=== PATIENT | male | born 1950 | race Caucasian/White ===

== ENCOUNTER 2017-05-13 14:14 | Emergency (ER) | payer MEDICARE ==
[~2017-05-13] VITALS: Ht 177.8 cm; Wt 92.1 kg
[~2017-05-13 14:14] MED LIST: ALLOPURINOL100 M1 ORAL; AMLODIPINE BESY10 MG ORAL; CALCIUM ACETAT667 MG PO; DIABETA5 MG ORAL; DILTIAZEM 24HR120 M1 ORAL; ESCITALOPRAM OX20 MG ORAL; FUROSEMIDE80 MG ORAL; GABAPENTIN100 MG ORAL; GABAPENTIN300 MG/61 ORAL; LANTUS SOL100 UNIT/1 SUBQ; NEPHROVITE1 TAB ORAL; OMEPRAZOLE20 M2 ORAL; PROPRANOLOL HCL80 M1 ORAL; RAPAMUNE1 MG/1 ML PO; RENVELA0.8 GM ORAL; TORSEMIDE100 MG PO; XANAX0.5 MG ORAL
[2017-05-13 14:22] VITALS: BP 143/85
--- NOTE | 2017-05-13 14:42 | Emergency Room Report ---
History of Present Illness General Chief Complaint: Skin Rash/Abscess Source: Patient Present Illness HPI Patient present with complaints of rash and itching He states that is fairly diffuse Patient was given a pill of the hospital When the rash initially started having states that is not helping very much When asked further patient reports that he was in the hospital for an AV fistula last Friday He was in the hospital for several days The rash started soon after that Denies any chest pain or shortness of breath denies any headache or visual changes denies any vomiting or diarrhea Patient reports that he was at dialysis on Friday and he could not move his arm for the whole dialysis, and the itching was unbearable Patient has started a medication for smoking cessation chantix approximately 3 weeks ago and this is the only new medication Patient however is not aware of the medications he was given at the hospital Allergies: Coded Allergies: CEPHALEXIN (Unverified Allergy, Unknown, 02/24/14) SULFAMETHOXAZOLE (Unverified Allergy, Unknown, 02/24/14) TRIMETHOPRIM (Unverified Allergy, Unknown, 02/24/14) Patient History Past Medical History: see triage record Pertinent Family History: none Reviewed Nursing Documentation: PMH: Agreed, PSxH: Agreed Nursing Documentation-PMH Hx Cardiac Problems: No Hx Diabetes: Yes Hx Cancer: No Hx Gastrointestinal Problems: Yes - liver transplant Hx Dialysis: Yes - KIDNEY FAILURE Hx Neurological Problems: No Review of Systems All Other Systems: negative except mentioned in HPI Physical Exam Vital Signs Date Time Temp Pulse Resp B/P (MAP) Pulse Ox O2 Delivery O2 Flow Rate FiO2 05/13/17 14:19 97.5 83 20 143/85 99 Room Air Sp02 EP Interpretation: reviewed, normal General Appearance: well appearing, no apparent distress Head: normocephalic, atraumatic Eyes: bilateral eye PERRL, bilateral eye EOMI ENT: hearing grossly normal, normal pharynx, TMs + canals normal, uvula midline Neck: full range of motion, supple, no meningismus, no bony tend Respiratory: lungs clear, normal breath sounds, no rhonchi, no respiratory distress, no retraction, no accessory muscle use Cardiovascular #1: normal peripheral pulses, regular rate, rhythm, no edema, no gallop, no JVD, no murmur Gastrointestinal: normal bowel sounds, non tender, soft, no mass, no organomegaly, non-distended, no guarding, no hernia, no pulsatile mass, no rebound Genitourinary: no CVA tenderness Musculoskeletal: normal inspection - Review AV fistula left antecubital fossa, mild associated erythema Neurologic: oriented x3, responsive, director telehealth III-XII nml as tested, motor strength/ tone normal, sensory intact Psychiatric: mood/affect normal Skin: other - Diffuse, pruritic rash, involving the upper chest back and arm area, no signs of any target cell appearance, the area does not appear fluctuant , best described as small some circular some mildly irregular raised erythematous lesions, does not appear maculopapular, or to be petechiae Lymphatic: normal inspection, no adenopathy Medical Decision Making Diagnostic Impression: Primary Impression: Rash and other nonspecific skin eruption ER Course Multiple differentials are considered Patient is a fairly complex past medical history Has had recent hospital stay as well Patient does not appear septic or toxic The patient's main complaint is the itching from the rash Patient has been seen by hospitalist along with patient's kinesiologist since disposition from the hospital At this time requires close outpatient followup Clinical consideration for such things as scabies also made, medication reaction Last Vital Signs Date Time Temp Pulse Resp B/P (MAP) Pulse Ox O2 Delivery O2 Flow Rate FiO2 05/13/17 14:22 20 143/85 99 Room Air 05/13/17 14:19 97.5 83 Status: improved Condition: Improved Scripts Permethrin* (ELIMITE*) 60 Gm Cream..g. 1 APPLIC TOPIC ONCE, #60 GM 0 Refills Apply cream from head to toe; leave on for 8-14 hours before washing off with water; may reapply in 1 week if live mites appear. Prov: BROOKE NAYAK D.O. 05/13/17 Diphenhydramine Hcl* (BENADRYL*) 25 Mg Capsule 25 MG ORAL Q6H Y for Itching, #20 CAP Prov: BROOKE NAYAK D.O. 05/13/17 Ranitidine Hcl* (ZANTAC*) 150 Mg Tablet 150 MG ORAL TWICE A DAY, #30 TAB Prov: BROOKE NAYAK D.O. 05/13/17 Prednisone* (PREDNISONE*) 20 Mg Tablet 20 MG ORAL BID, #8 TAB Prov: BROOKE NAYAK D.O. 05/13/17 Additional Instructions: As discussed he had multiple medical conditions. The steroids are being prescribed can increase your blood glucose, your require closer evaluation of this. The recent hospital stay needs to be further evaluated, to entertained different medication that could have been given to. At this time he did not show any signs of fever or infectious pathology and further blood tests had not been evaluated, the rash has also pruritic (itchy) which does not appear to be related to any blood count conditions. He require close urgent followup with your primary physician, reevaluation in the next one to 2 days and return to the emergency room with any change in condition, BROOKE NAYAK D.O. May 13, 2017 14:42
[2017-05-13] MEDS ORDERED: PREDNISONE20 MG ORAL (15:05)
[2017-05-13] MEDS ORDERED: RANITIDINE HCL150 MG ORAL (15:05)
[2017-05-13] MEDS ORDERED: PERMETHRIN60 GM TOPIC (15:05)
[2017-05-13] MEDS ORDERED: BENADRYL25 MG ORAL (15:05)
[2017-05-13 15:35] VITALS: BP 142/82
== END 2017-05-13 15:15 | disposition home or self-care (01) ==
LOC: EMR 14:50
DX: R21 Rash and other nonspecific skin eruption (principal); E11.9 Type 2 diabetes mellitus without complications; N19 Unspecified kidney failure; Z99.2 Dependence on renal dialysis; Z88.1 Allergy status to other antibiotic agents; Z88.2 Allergy status to sulfonamides
CPT/HCPCS: 99284

== ENCOUNTER 2018-10-31 16:34 | Inpatient (IN) | payer MEDICARE, MEDICAID ==
[~2018-10-31] VITALS: Ht 162.6 cm; Wt 91.7 kg
[~2018-10-31 16:34] MED LIST changes: +BENADRYL25 MG ORAL; +PERMETHRIN60 GM TOPIC; +PREDNISONE20 MG ORAL; +RANITIDINE HCL150 MG ORAL
[2018-10-31 17:00] VITALS: BP 80/40
[2018-10-31] MEDS ORDERED: Ondansetron ODT 8mg tab ORAL ONE (17:00)
[2018-10-31] MEDS ORDERED: HYDROmorphone 1mg/ml Carpuject IM ONE (17:00)
--- NOTE | 2018-10-31 17:08 | Emergency Room Report ---
History of Present Illness General Chief Complaint: Skin Rash/Abscess Source: Patient Present Illness HPI Patient presents with increased pain in his his right heel. He has a home health nurse that has been taking care of the wound along with his doctors. He doesn't remember taking x-rays in that area to look of the bone is infected. He does have peripheral neuropathy. He's been taking Percocet 5/325 and they have not been controlling the pain recently. He's had fevers and chills. He denies any calf pain at this time. He rates the pain 10/10, aching pressure not radiating and worse with any touching of the area. There is no drainage. The patient had dialysis yesterday. The patient recently has a new access in the right upper arm. He's complaining about pain and numbness in that area. His other fistula is on the left side. Patient denies any chest pain recently. He denies orthopnea or dyspnea. He does not produce urine at this time. He denies diarrhea and occasionally has constipation. History of diabetes and hypertension. Usually gets care from [facility]. He was last admitted in 2016 with these discharge diagnoses: 1. Polymicrobial bacteremia possibly from line sepsis. 2. Sepsis secondary to line infection. 3. Pericardial effusion, pending pericardiocentesis. 4. Acute metabolic encephalopathy secondary to sepsis, resolved. 5. End-stage renal disease, on hemodialysis with right chest tunneled catheter. 6. Hyponatremia. 7. Thrombocytopenia. 8. Hyperkalemia. 9. Diabetes mellitus. 10.Noncompliance as patient signed AMA. Allergies: Coded Allergies: CEPHALEXIN (Unverified Allergy, Unknown, 02/24/14) SULFAMETHOXAZOLE (Unverified Allergy, Unknown, 02/24/14) TRIMETHOPRIM (Unverified Allergy, Unknown, 02/24/14) Patient History Past Medical History: see triage record Past Surgical History: CABG, pacemaker, other - valve surgery, fistulae bilat Social History: Reports: smoking Social History Narrative With research spec and home health nurse Reviewed Nursing Documentation: PMH: Agreed; PSxH: Agreed Nursing Documentation-PM Past Medical History: No History, Except For Hx Cardiac Problems: No - [place] in Apr 2018 Hx Diabetes: Yes Hx Cancer: No Hx Gastrointestinal Problems: Yes - liver transplant Hx Dialysis: Yes - KIDNEY FAILURE M-W-F Hx Neurological Problems: No Review of Systems All Other Systems: negative except mentioned in HPI Physical Exam Vital Signs Date Time Temp Pulse Resp B/P (MAP) Pulse Ox O2 Delivery O2 Flow Rate FiO2 10/31/18 16:37 84 20 80/40 91 Room Air Oxygen saturation 99% on 3 L nasal cannula. Sp02 EP Interpretation: reviewed, normal General Appearance: well appearing, no apparent distress, GCS 15 Head: normocephalic Eyes: bilateral eye normal inspection, bilateral eye PERRL ENT: moist mucus membranes Neck: supple Respiratory: decreased breath sounds, rales Cardiovascular #1: regular rate, rhythm Cardiovascular #2: 2+ radial (R) Gastrointestinal: normal inspection, normal bowel sounds, non tender, no mass, non-distended Musculoskeletal: back normal, normal range of motion, no calf tenderness, tender - Right heel to percussion Neurologic: alert, oriented x3, grossly normal Psychiatric: mood/affect normal Skin: warm/dry, other - Heel decubitus stage III right no surrounding erythema or fluctuance Medical Decision Making Diagnostic Impression: Primary Impression: Foot ulcer Qualified Codes: L97.511 - Non-pressure chronic ulcer of other part of right foot limited to breakdown of skin Additional Impressions: NSTEMI (non-ST elevated myocardial infarction) ESRD (end stage renal disease) on dialysis Pleural effusions ER Course Patient presents with increased pain in his right ankle with an also there with risk factors of dialysis and diabetes. Differential includes cellulitis, osteomyelitis, diabetic ulcer amongst others. The patient will be evaluated EKG , chest x-ray, x-ray of the foot and labs. The patient retreated with analgesics. As there are fistula a in both arms we will be looking for IV site above where the fistula they are. Patient is placed on a monitoring specialist. EKG without injury - atrial paced. Chest x-ray bilateral effusions and congestive failure with pacemaker. Labs with chronic renal failure. Potassium elevated. Lab called with + troponin. Aspirin and nitrates given. Admit tele Dr. Carter. Hypotension was resolved prior to nitrates. Patient refused Kayexalate. Improved pain but repeated Dilaudid. Last Vital Signs Date Time Temp Pulse Resp B/P (MAP) Pulse Ox O2 Delivery O2 Flow Rate FiO2 11/01/18 00:16 Nasal Cannula 3.0 10/31/18 22:01 99.0 86 20 110/41 96 EKG Diagnostic Results Rate: normal Rhythm: other - AV paced ST Segments: no acute changes Rhythm Strip Diag. Results EP Interpretation: yes Rhythm: no PVC's, no ectopy, other - paced Chest X-Ray Diagnostic Results Chest X-Ray Diagnostic Results : Chest X-Ray Ordered: Yes # of Views/Limited/Complete: 1 View Indication: Other EP Interpretation: Yes Interpretation: no pneumothorax, other - bilat effusions, pacer, inc cor, CABG Impression: Other Electronically Signed by: Electronically signed by Dhruv Urrutia MD Other X-Ray Diagnostic Results Other X-Ray Diagnostic Results : X-Ray ordered: L foot # of Views/Limited Vs Complete: 3 View Indication: Pain Interpretation: no dislocation, no soft tissue swelling, no fractures, other - no gas or periostial reaction Impression: Other Electronically Signed by: Electronically signed by Dhruv Urrutia MD Last Vital Signs Date Time Temp Pulse Resp B/P (MAP) Pulse Ox O2 Delivery O2 Flow Rate FiO2 11/01/18 00:16 Nasal Cannula 3.0 10/31/18 22:01 99.0 86 20 110/41 96 Status: improved Disposition: ADMITTED INPATIENT Condition: Serious Dhruv Urrutia MD Oct 31, 2018 17:08
[2018-10-31] MEDS ORDERED: HYDROmorphone 1mg/ml Carpuject IVP ONE (17:30)
[2018-10-31 17:37] LABS: BASOPHILS % (AUTO) 1.6 % (0.0-2.0); EOSINOPHILS % (AUTO) 0.1 % (0.0-3.0); HEMATOCRIT 44.7 % (42.0-52.0); HEMOGLOBIN 13.3 G/DL (14.2-18.0); LYMPHOCYTES % (AUTO) 26.1 % (20.0-45.0); MEAN CORPUSCULAR VOLUME 86 FL (80-99); MONOCYTES % (AUTO) 8.9 % (1.0-10.0); NEUTROPHILS % (AUTO) 63.4 % (45.0-75.0); PLATELET COUNT 152 K/UL (150-450); RED BLOOD COUNT 5.19 M/UL (4.70-6.10); RED CELL DISTRIBUTION WIDTH 18.8 % (11.6-14.8)
[2018-10-31 17:42] LABS: INR 1.1 (0.9-1.1)
[2018-10-31 17:43] LABS: ANION GAP 8 mmol/L (5-15); BLOOD UREA NITROGEN 30 mg/dL (7-18); CALCIUM 9.5 MG/DL (8.5-10.1); CARBON DIOXIDE 31 MMOL/L (21-32); CHLORIDE 95 MMOL/L (98-107); CREATININE 5.5 MG/DL (0.55-1.30); POTASSIUM 5.6 MMOL/L (3.5-5.1); SODIUM 134 MMOL/L (136-145)
[2018-10-31 17:55] LABS: ALANINE AMINOTRANSFERASE 13 U/L (12-78); ALBUMIN/GLOBULIN RATIO 0.7 (1.0-2.7); ALKALINE PHOSPHATASE 78 U/L (46-116); ASPARTATE AMINO TRANSFERASE 16 U/L (15-37); BILIRUBIN,TOTAL 0.4 MG/DL (0.2-1.0); CREATINE KINASE 37 U/L (26-308)
[2018-10-31] MEDS ORDERED: Sodium Polystyrene Sulfonate 15gm Powder ORAL ONE (18:15)
[2018-10-31] MEDS ORDERED: Nitroglycerin 2% oint pkt TOPIC ONE (18:15)
--- NOTE | 2018-10-31 18:15 | Diagnostic Imaging Report ---
EXAM: XR Right Foot Complete, 3 or More Views CLINICAL HISTORY: OSTEOTOMY TECHNIQUE: Frontal, lateral and oblique views of the right foot. COMPARISON: No relevant comparisons FINDINGS: Bones/joints: Unremarkable. No acute fracture. No dislocation. Soft tissues: Soft tissues show dense arterial calcifications in the posterior tibial and dorsalis pedis arteries. Other findings: There is no evidence of a prior surgery to suggest an osteotomy. Mild claw toe deformity to the second toe is noted. IMPRESSION: No acute findings.
--- NOTE | 2018-10-31 18:30 | Diagnostic Imaging Report ---
EXAM: XR Chest, 1 View CLINICAL HISTORY: OSTEOMY - seizure today TECHNIQUE: Frontal view of the chest. COMPARISON: 03/08/2016 chest x-ray FINDINGS: Lungs: Bilateral perihilar airspace opacities have developed. Pleural space: There is haziness of bilateral lung bases compatible with moderate pleural effusions. No pneumothorax. Heart: Similar cardiomegaly. Mediastinum: Unremarkable. Bones/joints: Interval sternotomy and left-sided mediastinal surgical clips. Tubes, lines and devices: The right jugular approach dialysis catheter has since been removed. A right MRI compatible dual chamber pacemaker has since been placed. Upper abdomen: No free air under the diaphragms. IMPRESSION: Findings suggestive of CHF flare. If a pericardial effusion is suspected, echocardiography could be considered..
[2018-10-31 19:00] VITALS: BP 112/61
[2018-10-31] MEDS ORDERED: Hydromorphone 0.5mg/0.5ml inj IVP ONE (19:15)
[2018-10-31 21:00] VITALS: BP 101/50
[2018-10-31] MEDS ORDERED: TACROLIMUS1 MG PO (21:31)
[2018-10-31] MEDS ORDERED: ASPIRIN81 M3 PO (21:31)
[2018-10-31] MEDS ORDERED: LANTUS5 UNITS SUBQ (21:31)
[2018-10-31] MEDS ORDERED: CALCIUM ACETAT667 M1 PO (21:31)
[2018-10-31] MEDS ORDERED: PERCOCET 5-3251 EACH ORAL (21:31)
[2018-10-31] MEDS ORDERED: PRO-AMATINE2.5 MG ORAL (21:31)
[2018-10-31] MEDS ORDERED: STARLIX120 MG ORAL (21:31)
[2018-10-31] MEDS ORDERED: RENVELA800 MG ORAL (21:31)
[2018-10-31 22:00] VITALS: BP 100/64
[2018-10-31] MEDS ORDERED: FOSRENOL1000 MG PO (22:00)
[2018-11-01] VITALS: BP 108/54
[2018-11-01] MEDS: Vancomycin 1.25gm Premix q24h IVPB SCH (01:17)
[2018-11-01] MEDS: NovoLOG Insulin Flexpen SUBQ SCH ×4 (06:05→20:21)
[2018-11-01] MEDS ORDERED: Torsemide 10mg tab ORAL SCH (09:00)
[2018-11-01] MEDS: Carvedilol 6.25mg Tab ORAL SCH ×2 (09:00→20:17)
[2018-11-01] MEDS ORDERED: CARVEDILOL6.25 MG ORAL (10:03)
[2018-11-01] MEDS ORDERED: TACROLIMUS1 MG PO ×2 (10:03)
[2018-11-01] MEDS: HYDROcodone/Acetamin 5/325 tab ORAL PRN ×3 (10:10→23:44)
[2018-11-01] MEDS ORDERED: CRESTOR10 M2 ORAL (11:27)
[2018-11-01] MEDS ORDERED: TELMISARTAN20 MG PO (11:27)
[2018-11-01] MEDS ORDERED: Sodium Polystyrene Sulfonate 15gm Powder ORAL ONE (12:00)
[2018-11-01] MEDS: Nephrovite tab (Rena-Vite) ORAL SCH (12:05)
[2018-11-01] MEDS: Allopurinol 100mg Tab ORAL SCH (12:05)
[2018-11-01] MEDS: Calcium Acetate 667mg Tab ORAL SCH ×2 (12:40→17:12)
--- NOTE | 2018-11-01 13:12 | Consultation ---
Consult Note Consult Note I was asked to evaluate for dialysis management Patient presents with increased pain in his his right heel. He has a home health nurse that has been taking care of the wound along with his doctors. He doesn't remember taking x-rays in that area to look of the bone is infected. He does have peripheral neuropathy. He's been taking Percocet 5/325 and they have not been controlling the pain recently. He's had fevers and chills. He denies any calf pain at this time. He rates the pain 10/10, aching pressure not radiating and worse with any touching of the area. There is no drainage. The patient had dialysis 10/30 The patient recently has a new access in the right upper arm. He's complaining about pain and numbness in that area. His other fistula is on the left side. Patient denies any chest pain recently. He denies orthopnea or dyspnea. He does not produce urine at this time. He denies diarrhea and occasionally has constipation. History of diabetes and hypertension. Usually gets care from [facility]. He was last admitted in 2016 with these discharge diagnoses: 1. Polymicrobial bacteremia possibly from line sepsis. 2. Sepsis secondary to line infection. 3. Pericardial effusion, pending pericardiocentesis. 4. Acute metabolic encephalopathy secondary to sepsis, resolved. 5. End-stage renal disease, on hemodialysis with right chest tunneled catheter. 6. Hyponatremia. 7. Thrombocytopenia. 8. Hyperkalemia. 9. Diabetes mellitus. 10.Noncompliance as patient signed AMA. Coded Allergies: CEPHALEXIN (Unverified Allergy, Unknown, 02/24/14) SULFAMETHOXAZOLE (Unverified Allergy, Unknown, 02/24/14) TRIMETHOPRIM (Unverified Allergy, Unknown, 02/24/14) Patient History Past Medical History: see triage record Past Surgical History: CABG, pacemaker, other - valve surgery, fistulae bilat Social History: Reports: smoking Social History Narrative With hat presser and home health nurse Reviewed Nursing Documentation: PMH: Agreed; PSxH: Agreed Nursing Documentation-PM Past Medical History: No History, Except For Hx Cardiac Problems: No - [place] in Apr 2018 Hx Diabetes: Yes Hx Cancer: No Hx Gastrointestinal Problems: Yes - liver transplant Hx Dialysis: Yes - KIDNEY FAILURE M-W-F Hx Neurological Problems: No interviewed examined data reviewed o/e SOB at rest mid chest scar pacer on O2 left arm fistula right arm new fistula not matures right heel ulcer, necrotic surface tender Assessment/Plan ESRD with high K and SOB Foot ulcer, likely infected High Troponin likely NSTMI Pacer , Pleural effusion s/p CABGS s/p Liver transplant Plan; HD today , KELSIE per cardio and ID refused Kayexelate Called Dr Gil Figueredo , his PMD and Post Anesthesia Room Nurse for CS transfer Nakul Stevens MD Nov 01, 2018 13:12
[2018-11-01 16:22] VITALS: BP 100/71
[2018-11-01] MEDS: Docusate 100mg cap ORAL SCH (17:12)
--- NOTE | 2018-11-01 18:15 | Consultation ---
DATE OF CONSULTATION: 11/01/2018 CHIEF COMPLAINT: History of liver transplant and constipation. HISTORY OF PRESENT ILLNESS: A very pleasant male who apparently had a liver transplant about 12 years ago at [facility] according to him because of his hepatitis C. He also had a CABG in April, three-vessel CABG and also valve repair, presents to the hospital mainly complaining of the heel ulceration and heel pain and he stated his pain is not under control. GI consultation is requested for evaluation of his treatment for his transplant and followup on his transplant. Also, the patient complained of constipation. PAST MEDICAL HISTORY: 1. History of liver transplant due to hepatitis C. 2. Coronary artery disease, status post CABG in April. 3. Diabetes. 4. End-stage renal disease, on hemodialysis. 5. Hypertension. ALLERGIES: Cephalexin, sulfa, . PAST SURGICAL HISTORY: CABG, liver transplant, dialysis catheter placement. FAMILY HISTORY: Noncontributory. REVIEW OF SYSTEMS: A 10-point review of systems was performed and pertinent positives in the HPI. PHYSICAL EXAMINATION: VITAL SIGNS: Temperature is 98.9 degrees, pulse is 81, respirations 20, and blood pressure is 108/54. HEENT: Normocephalic and atraumatic. Sclerae anicteric. NECK: Supple. No obvious lymphadenopathy. CARDIOVASCULAR: There is a scar in the midline from recent surgery. HEART: Regular rate and rhythm. Plus S1 and S2. There is soft murmur in the left sternal border. LUNGS: Decreased breath sounds bilaterally based on supine exam. ABDOMEN: Soft. There is a scar from prior liver transplant. Bowel sounds are present. No rebound. No guarding. No peritoneal sign. EXTREMITIES: There is evidence of heal ulceration that is covered by Band-Aid. The patient complained of pain in that area. LABORATORY AND DIAGNOSTIC DATA: White count is 7, hemoglobin 13, hematocrit 44, and platelet count is 152,000. Chem-7, sodium 134, potassium 5.6, BUN is 30, creatinine 5.5, liver function grossly normal. ASSESSMENT AND PLAN: A 68-year-old male with heel ulcerations and infection. Follow up with wound care and Infectious Diseases. In terms of his transplant, he is on Prograf currently. He has been followed at [facility] on monthly basis according to him. His liver enzymes are completely normal. So, we are going to follow. We also going to order hepatitis C to make sure he does not have recurrent hepatitis C after transplant. The patient also is complaining of some mild constipation. We will start him on Colace and MiraLax. He refused his lactulose. So, we will see if the Colace and MiraLax will help him. If not, we will add other laxatives. I want to thank Dr. Carter for this kind referral. Jorge Escalera M.D. DR: Shanthi JOB#: [id number] CC: Jamari Carter M.D.; Fax#: [phone]
[2018-11-01] MEDS: Miralax 17gm pkt ORAL SCH (20:19)
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
[2018-11-01] MEDS: Morphine Sulfate 2mg/ml Inj(IV/IM USE ONLY) IM PRN (23:03)
[2018-11-02] MEDS: HYDROcodone/Acetamin 5/325 tab ORAL PRN ×2 (03:24→20:13)
[2018-11-02 04:00] VITALS: BP 176/129
[2018-11-02] MEDS: Morphine Sulfate 2mg/ml Inj(IV/IM USE ONLY) IM PRN ×3 (04:15→18:05)
[2018-11-02] MEDS: NovoLOG Insulin Flexpen SUBQ SCH ×4 (06:17→21:09)
[2018-11-02 08:00] VITALS: BP 135/104
[2018-11-02 08:35] VITALS: BP 120/60
[2018-11-02] MEDS: Nephrovite tab (Rena-Vite) ORAL SCH (08:59)
[2018-11-02] MEDS: Allopurinol 100mg Tab ORAL SCH (08:59)
[2018-11-02] MEDS: Calcium Acetate 667mg Tab ORAL SCH ×2 (09:00→17:56)
[2018-11-02] MEDS: Docusate 100mg cap ORAL SCH ×3 (09:00→17:56)
[2018-11-02] MEDS ORDERED: Torsemide 10mg tab ORAL SCH (09:00)
[2018-11-02] MEDS: Carvedilol 6.25mg Tab ORAL SCH ×2 (09:01→21:00)
--- NOTE | 2018-11-02 11:02 | GI Progress Note ---
Assessment/Plan Problems: (1) Foot ulcer ICD Codes: L97.509 - Non-pressure chronic ulcer of other part of unspecified foot with unspecified severity SNOMED: 53156766 Qualifiers: Qualified Codes: L97.511 - Non-pressure chronic ulcer of other part of right foot limited to breakdown of skin (2) DM (diabetes mellitus) ICD Codes: E11.9 - Type 2 diabetes mellitus without complications SNOMED: 69629922 (3) Transplant ICD Codes: Z94.9 - Transplanted organ and tissue status, unspecified SNOMED: 702806133 Status: stable Status Narrative Discussed with Dr. Escalera Assessment/Plan History of liver transplant, currently on Prograf constipation Follow-up cardiology recommendations for elevated troponin levels advance diet prn transfusions ppi zofran prn Bowel regimen Trend LFTs Follow-up hepatitis panel The patient was seen and examined at bedside and all new and available data was reviewed in the patients chart. I agree with the above findings, impression and plan. (Patient seen earlier today. Signature stamp does not reflect patient encounter time.). - Jorge Escalera MD Subjective Gastrointestinal/Abdominal: Reports: no symptoms Subjective Had bowel movement yesterday Objective Last 24 Hour Vital Signs Date Time Temp Pulse Resp B/P (MAP) Pulse Ox O2 Delivery O2 Flow Rate FiO2 11/02/18 09:01 88 135/104 11/02/18 04:00 87 11/02/18 04:00 176/129 (145) 11/02/18 00:00 90 11/02/18 00:00 97.3 89 20 97 11/01/18 21:00 Room Air 2.0 11/01/18 20:00 97.1 93 18 93 11/01/18 18:31 97.0 11/01/18 16:22 97.0 88 20 100/71 (81) 98 11/01/18 16:00 81 11/01/18 12:00 78 11/01/18 11:12 Room Air 2.0 Intake and Output 11/01/18 11/02/18 19:00 07:00 Intake Total 720 ml Output Total 1200 ml 150 ml Balance -480 ml -150 ml Intake Oral 720 ml Output Urine Total 150 ml Hemodialysis UF 1200 ml # Voids 2 Height (Feet): 5 Height (Inches): 10.00 Weight (Pounds): 199 General Appearance: WD/WN, no apparent distress, alert Cardiovascular: normal rate Respiratory/Chest: normal breath sounds, no respiratory distress Abdominal Exam: normal bowel sounds, non tender, soft Extremities: normal range of motion, non-tender Kelvin Briggs NP Nov 02, 2018 11:02
--- NOTE | 2018-11-02 11:37 | Consultation ---
History of Present Illness General Date patient seen: Nov 02, 2018 Time patient seen: 11:00 Chief Complaint: Skin Rash/Abscess Reason for Consultation: R heel ulceration, pain. Present Illness Allergies: Coded Allergies: CEPHALEXIN (Unverified Allergy, Unknown, 02/24/14) SULFAMETHOXAZOLE (Unverified Allergy, Unknown, 02/24/14) TRIMETHOPRIM (Unverified Allergy, Unknown, 02/24/14) Medication History Scheduled Allopurinol* (Allopurinol*), 100 MG ORAL DAILY, (Reported) Calcium Acetate (Calcium Acetate), 667 MG PO BID, (Reported) Carvedilol* (Carvedilol*), 6.25 MG ORAL EVERY 12 HOURS, (Reported) Midodrine (Midodrine HCl), 5 MG ORAL BEFORE MEALS, (Reported) Nateglinide (Starlix), 120 MG ORAL THREE TIMES A DAY, (Reported) Omeprazole (Omeprazole), 20 MG ORAL BID, (Reported) Rosuvastatin Calcium* (Crestor*), 10 MG ORAL HS, (Reported) Tacrolimus (Tacrolimus), 2 MG PO BID, (Reported) Telmisartan (Telmisartan), 10 MG PO at noon, (Reported) Torsemide* (Demadex*), 100 MG PO DAILY, (Reported) Vitamin B Cmplx/Vit C/Folic AC (Nephro-Lexii Tablet), 1 TAB ORAL DAILY, (Reported ) Scheduled PRN Oxycodone/Acetaminophen 5-325* (Percocet 5-325 Mg Tablet*), 1 TAB ORAL Q4H PRN for For Pain, (Reported) Discontinued Medications Diphenhydramine Hcl* (Benadryl*), 25 MG ORAL Q6H PRN for Itching Discontinued Reason: MD discontinued med Patient History 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 status Full Code Advanced Directive on File Physical Exam Last 24 Hour Vital Signs Date Time Temp Pulse Resp B/P (MAP) Pulse Ox O2 Delivery O2 Flow Rate FiO2 11/02/18 09:01 88 135/104 11/02/18 04:00 87 11/02/18 04:00 176/129 (145) 11/02/18 00:00 90 11/02/18 00:00 97.3 89 20 97 11/01/18 21:00 Room Air 2.0 11/01/18 20:00 97.1 93 18 93 11/01/18 18:31 97.0 11/01/18 16:22 97.0 88 20 100/71 (81) 98 11/01/18 16:00 81 11/01/18 12:00 78 Intake and Output 11/01/18 11/02/18 19:00 07:00 Intake Total 720 ml Output Total 1200 ml 150 ml Balance -480 ml -150 ml Intake Oral 720 ml Output Urine Total 150 ml Hemodialysis UF 1200 ml # Voids 2 Height (Feet): 5 Height (Inches): 10.00 Weight (Pounds): 199 Medications Current Medications Medications (Trade) Dose Ordered Sig/Aleks Route PRN Reason Start Time Stop Time Status Last Admin Dose Admin Acetaminophen (Tylenol) 650 mg Q4H PRN ORAL Mild Pain/Temp > 100.5 10/31/18 22:45 11/30/18 22:44 Acetaminophen/ Hydrocodone Bitart ([place] 5/325) 1 tab Q4H PRN ORAL Moderate Pain (Pain Scale 4-6) 11/01/18 05:15 11/08/18 05:14 11/02/18 03:24 Allopurinol (Zyloprim) 100 mg DAILY ORAL 11/01/18 09:00 12/01/18 08:59 11/02/18 08:59 Calcium Acetate (Phoslo) 667 mg BID ORAL 11/01/18 12:00 12/01/18 11:59 11/02/18 09:00 Carvedilol (Coreg) 6.25 mg EVERY 12 HOURS ORAL 11/01/18 09:00 12/01/18 08:59 11/02/18 09:01 Dextrose (Dextrose 50%) 25 ml Q30M PRN IV Hypoglycemia 10/31/18 22:45 11/30/18 22:44 Dextrose (Dextrose 50%) 50 ml Q30M PRN IV Hypoglycemia 10/31/18 22:45 11/30/18 22:44 Docusate Sodium (Colace) 100 mg TWICE A DAY ORAL 11/01/18 18:00 12/01/18 17:59 11/02/18 09:00 Gabapentin (Neurontin) 300 mg DAILY ORAL 11/02/18 11:00 12/02/18 10:59 Insulin Aspart (NovoLOG) BEFORE MEALS AND HS SUBQ 11/01/18 06:30 12/01/18 06:29 11/02/18 06:17 Midodrine (Pro-Amatine) 2.5 mg TID ORAL 11/01/18 18:00 12/01/18 11:59 11/02/18 09:01 Morphine Sulfate (Morphine Sulfate) 0.5 mg Q4H PRN IM For Pain 11/01/18 22:15 11/08/18 22:14 11/02/18 09:03 Nateglinide (Starlix) 120 mg TIAC ORAL 11/01/18 11:30 12/01/18 11:29 11/02/18 06:20 Nicotine (Nicoderm) 1 patch Q24H TDERMAL 11/01/18 22:15 12/01/18 22:14 11/01/18 23:02 Pantoprazole (Protonix) 40 mg BID ORAL 11/01/18 18:00 12/02/18 08:59 11/02/18 09:01 Polyethylene Glycol (Miralax) 17 gm BEDTIME ORAL 11/01/18 21:00 12/01/18 20:59 Sevelamer Carbonate (Renvela) 800 mg THREE TIMES A DAY ORAL 11/01/18 18:00 12/01/18 17:59 11/02/18 09:00 Tacrolimus (Prograf) 2 mg MoWeFr@0000,1200 ORAL 11/02/18 00:00 12/02/18 00:00 11/01/18 23:05 Tacrolimus (Prograf) 2 mg SuTuThSa@0900,2100 ORAL 11/01/18 21:00 12/01/18 20:59 11/01/18 20:18 Vancomycin HCl (Vanco rx to dose) 1 ea DAILY PRN MISC Per rx protocol 10/31/18 22:45 11/30/18 22:44 Vancomycin HCl/ Dextrose 275 ml @ 183.333 mls/hr Q72H IVPB 11/01/18 00:00 11/06/18 00:00 11/01/18 01:17 Vitamin B Complex/ Vit C/Folic Acid (Nephrovite) 1 tab DAILY ORAL 11/01/18 09:00 12/01/18 08:59 11/02/18 08:59 Objective Narrative Foused B/L LE: Right foot: pulses +1/4 DP/PT , ulceration noted to plantar posterior heel, approx 2.5 cm x 2.5 cm x UTD. Wound base is necrotic, larry-wound margins are inflamed, (+) Pain upon palpation. No active purulent drainage is noted. No increase in temp differential, minimal edema and erythema is noted. left foot: distal forefoot distal rash is noted, +1/4 DP/PT . No open ulceration or wounds are noted. Assessment/Plan Assessment/Plan A: R heel ulceration, necrotic, painful Hep C , s/p Liver transplant CAD, s/p CABG Cellulitis of ABD DM P: - Pt seen and evaluated. - Discuss findings with patient. - labs and chart reviewed. - Temp, 97.3 - WBC, 7.0 - Right foot XR reviewed, official report notes calcified arteries - Arterial U/S ordered, recommend vasc consult. - Daily wound care order submitted. - MRI ordered, will await official report to R/O OM or deep ST infection, abscess formation. - Pt may required surgical intervention pending MRI official report, medical and vasc clearance. - Podiatry will con to monitor. Angel Parada DPM Nov 02, 2018 11:37
[2018-11-02 12:00] VITALS: BP 106/57
--- NOTE | 2018-11-02 12:14 | Cardiac Electrophysiology PN ---
Subjective Subjective [id number] Objective Last 24 Hour Vital Signs Date Time Temp Pulse Resp B/P (MAP) Pulse Ox O2 Delivery O2 Flow Rate FiO2 11/02/18 09:01 88 135/104 11/02/18 09:00 Nasal Cannula 2.0 11/02/18 08:35 88 120/60 (80) 11/02/18 08:00 87 11/02/18 08:00 97.3 88 20 135/104 (114) 96 11/02/18 04:00 87 11/02/18 04:00 176/129 (145) 11/02/18 00:00 90 11/02/18 00:00 97.3 89 20 97 11/01/18 21:00 Room Air 2.0 11/01/18 20:00 97.1 93 18 93 11/01/18 18:31 97.0 11/01/18 16:22 97.0 88 20 100/71 (81) 98 11/01/18 16:00 81 Intake and Output 11/01/18 11/02/18 19:00 07:00 Intake Total 720 ml Output Total 1200 ml 150 ml Balance -480 ml -150 ml Intake Oral 720 ml Output Urine Total 150 ml Hemodialysis UF 1200 ml # Voids 2 Microbiology Date/Time Source Procedure Growth Status 10/31/18 20:39 Wound Gram Stain Pending Resulted 10/31/18 20:39 Wound Culture - Preliminary Gram Positive Cocci Resulted Shivam Sharpe MD Nov 02, 2018 12:14
--- NOTE | 2018-11-02 12:49 | Nephrology Progress Note ---
Assessment/Plan Problem List: (1) ESRD (end stage renal disease) on dialysis (2) Foot ulcer (3) CHF (congestive heart failure) (4) Pacemaker Assessment ESRD with high K and SOB Foot ulcer, likely infected High Troponin likely NSTMI Pacer , Pleural effusion s/p CABGS s/p Liver transplant Plan Plan; HD 11/01 & 11/03 per cardio and ID refused Kayexelate Called Dr Gil Figueredo , his PMD and [employer] Architect for CS transfer Podiatry and Vascular surgical eval Subjective ROS Limited/Unobtainable: No Constitutional: Reports: malaise, other - complains of right heel pain Objective Objective Last 24 Hour Vital Signs Date Time Temp Pulse Resp B/P (MAP) Pulse Ox O2 Delivery O2 Flow Rate FiO2 11/02/18 09:01 88 135/104 11/02/18 09:00 Nasal Cannula 2.0 11/02/18 08:35 88 120/60 (80) 11/02/18 08:00 87 11/02/18 08:00 97.3 88 20 135/104 (114) 96 11/02/18 04:00 87 11/02/18 04:00 176/129 (145) 11/02/18 00:00 90 11/02/18 00:00 97.3 89 20 97 11/01/18 21:00 Room Air 2.0 11/01/18 20:00 97.1 93 18 93 11/01/18 18:31 97.0 11/01/18 16:22 97.0 88 20 100/71 (81) 98 11/01/18 16:00 81 Intake and Output 11/01/18 11/02/18 19:00 07:00 Intake Total 720 ml Output Total 1200 ml 150 ml Balance -480 ml -150 ml Intake Oral 720 ml Output Urine Total 150 ml Hemodialysis UF 1200 ml # Voids 2 Height (Feet): 5 Height (Inches): 10.00 Weight (Pounds): 199 General Appearance: mild distress Cardiovascular: tachycardia Respiratory/Chest: decreased breath sounds, stridor - breathing easier Abdomen: distended Extremities: other - right heel no change Nakul Stevens MD Nov 02, 2018 12:49
--- NOTE | 2018-11-02 14:30 | History and Physical Report ---
HISTORY OF PRESENT ILLNESS: This is a 17-year-old male, came to the emergency room for short of breath. The patient was found to have mild pneumonia in right lung. The patient also was found to have hypomagnesium and palpitation. He has no fever or chills. PAST MEDICAL HISTORY: Asthma. MEDICATIONS: Albuterol inhaler. PHYSICAL EXAMINATION: GENERAL: This is a young male, currently sitting in bed, comfortable. is better. VITAL SIGNS: Blood pressure 100/64, pulse 70s, and no fever. HEENT: NAD. CHEST: Bilaterally decreased breath sounds. CARDIOVASCULAR: Regular rhythm. ABDOMEN: Soft. EXTREMITIES: No CCE. NEUROLOGICAL: Generalized weakness. LABORATORY EXAMINATION: White counts are 16 to 12,000, hemoglobin 15, hematocrit 45, and platelets are normal at 155,000. Chemistry panel is unremarkable. Troponin 0.04. TSH 0.350. ASSESSMENT: 1. Acute pneumonia. 2. Asthma. PLAN: We will currently continue current medical treatment. Continue antibiotics and continue bronchodilator treatments. Continue Tylenol. Jamari Carter M.D. DR: JEFF JOB#: [id number] CC:
[2018-11-02 16:00] VITALS: BP 138/89
--- NOTE | 2018-11-02 19:30 | Progress Note ---
DATE: 11/02/2018 SUBJECTIVE: This is a 68-year-old male complaining of left foot pain. He has a wound and scar tissue on the left heel and complaining lot of pain. He has no fever. No chills. Medication was changed to morphine. The patient currently alert, oriented, and comfortable. Pain is 10/10. Also added Neurontin. PAST MEDICAL HISTORY: Significant for hypertension and diabetes. PHYSICAL EXAMINATION: GENERAL: This is an elderly male, who came with multiple problems, hyperkalemia and generalized weakness. VITAL SIGNS: Blood pressure is 135/104, pulse 88, respirations 20, temperature 97.3. HEENT: NAD. CHEST: Bilaterally clear. CARDIOVASCULAR: Regular rhythm. ABDOMEN: Soft. EXTREMITIES: CCE. NEUROLOGICAL: Generalized weakness. LABORATORY DATA: The patient has no labs today. ASSESSMENT: 1. Decompensated CHF. 2. Hypertension. 3. Diabetes. 4. Foot ulcer. 5. Chronic pain. PLAN: 1. We will admit on telemetry bed. 2. Continue antibiotic. 3. Consider Podiatry consult. 4. Add Neurontin. 5. Consider pain medicine. 6. We will currently continue medical treatment. 7. The patient is currently on Sevelamer, PPI, torsemide, meloxicam, nicotine patch, morphine for severe pain. 8. Consider podiatry as well as consider cardiology on the case. 9. The patient was recommended to quit smoking. Jamari Carter M.D. DR: Veronica JOB#: [id number] CC:
[2018-11-02 20:00] VITALS: BP 101/68
--- NOTE | 2018-11-02 20:30 | Consultation ---
DATE OF CONSULTATION: 11/02/2018 CARDIOLOGY CONSULTATION CONSULTING PHYSICIAN: Shivam Sharpe M.D. REFERRING PHYSICIAN: Darius Carter M.D. REASON FOR CONSULTATION: Elevated troponin. The patient has history of coronary artery bypass graft as well as evaluation of the patient's pacemaker. HISTORY OF PRESENT ILLNESS: The patient is a 68-year-old gentleman with history of hypertension, coronary artery disease, history of coronary artery bypass graft x4 in April 2018, as well as history of permanent pacemaker implantation on the right side in 2016. The patient does not know the brand of his pacemaker. The patient also has end-stage renal disease, on hemodialysis. The patient presented to the emergency room for increased pain in his right heel. The patient's home health nurse has been taking care of the doctor. The patient was admitted and a Cardiology consultation was obtained for further evaluation and management. REVIEW OF SYSTEMS: Review of systems was negative other than what was mentioned in the history of present illness. PAST MEDICAL HISTORY: 1. Hypertension. 2. History of pacemaker placement. 3. History of coronary artery bypass graft. 4. History of AV fistula placement. 5. Status post liver transplant. 6. History of noncompliance. 7. Diabetes. 8. Thrombocytopenia. 9. History of pericardial effusion in the past. SOCIAL HISTORY: He lives in assisted. He does not smoke or drink alcohol. PHYSICAL EXAMINATION: VITAL SIGNS: Blood pressure 135/104, pulse is 88, respirations 18, and temperature 97.3. HEAD AND NECK: Shows no JVD. LUNGS: Coarse rhonchi. CARDIOVASCULAR: Regular S1 and S2 with no gallop. Sternotomy is intact and pacemaker in the right chest. ABDOMEN: Soft. EXTREMITIES: A 1+ pitting edema as well as pulse in the right foot. LABORATORY AND DIAGNOSTIC DATA: His EKG shows atrially sensed ventricular paced rhythm. The telemetry strip showed runs of nonsustained ventricular tachycardia up to 5 beats. LABORATORY DATA: Labs show white count 7, hemoglobin 13.3, hematocrit of 44, and platelet count is 152,000. Sodium 134, potassium 5.6, BUN of 30, creatinine 5.5, and glucose of 97. Troponin is 0.147. BNP is more than 35,000. ASSESSMENT AND PLAN: 1. Troponin elevation. The patient does not have any chest pain. The patient has already been revascularized his coronary artery bypass graft and this could be due to renal failure. In the meantime, we will maximize his medical therapy. He is already on Coreg 6.25 mg b.i.d. I will add aspirin and Lipitor to his medical regimen. 2. Status post coronary bypass graft as mentioned above. 3. Nonsustained ventricular tachycardia. The patient has history of prior myocardial infarction and bypass. We will get an echocardiogram to evaluate for ejection fraction and wall motion abnormality. 4. Congestive heart failure. The patient is on hemodialysis, per Dr. Stevens. 5. End-stage renal disease, on hemodialysis. 6. Status post pacemaker. The patient does not know the brand of the pacemaker. We will try to find the brand and interrogate the pacemaker for further evaluation. 7. Right foot ulcer. On antibiotic. Further evaluation by Podiatry. It is also of note that the patient's chest x-ray also showed the right-sided dual-chamber pacemaker lead in good location. Thank you very much, Dr. Carter, for allowing me to participate in the care of this patient. Please do not hesitate to contact me for any questions regarding my evaluation. Shivam Sharpe M.D. DR: RAISA JOB#: [id number] CC:
[2018-11-02] MEDS: Miralax 17gm pkt ORAL SCH (21:00)
[2018-11-03] VITALS: BP 110/54
[2018-11-03] MEDS: Morphine Sulfate 2mg/ml Inj(IV/IM USE ONLY) IM PRN ×4 (03:30→20:46)
[2018-11-03 04:00] VITALS: BP 120/68
[2018-11-03] MEDS: NovoLOG Insulin Flexpen SUBQ SCH ×4 (06:22→20:50)
[2018-11-03 08:00] VITALS: BP 99/45
[2018-11-03] MEDS: Docusate 100mg cap ORAL SCH ×3 (08:57→17:43)
[2018-11-03] MEDS: Allopurinol 100mg Tab ORAL SCH (08:58)
[2018-11-03] MEDS: Nephrovite tab (Rena-Vite) ORAL SCH (08:58)
[2018-11-03] MEDS: Carvedilol 6.25mg Tab ORAL SCH ×2 (08:59→20:43)
[2018-11-03] MEDS: Calcium Acetate 667mg Tab ORAL SCH ×2 (08:59→17:44)
[2018-11-03] MEDS: Aspirin EC 81mg tab ORAL SCH (08:59)
[2018-11-03 09:29] LABS: BASOPHILS % (AUTO) 0.9 % (0.0-2.0); EOSINOPHILS % (AUTO) 0.1 % (0.0-3.0); HEMATOCRIT 44.6 % (42.0-52.0); HEMOGLOBIN 13.1 G/DL (14.2-18.0); MEAN CORPUSCULAR VOLUME 86 FL (80-99); MONOCYTES % (AUTO) 6.8 % (1.0-10.0); NEUTROPHILS % (AUTO) 75.2 % (45.0-75.0); PLATELET COUNT 165 K/UL (150-450); RED BLOOD COUNT 5.16 M/UL (4.70-6.10); RED CELL DISTRIBUTION WIDTH 18.7 % (11.6-14.8)
[2018-11-03 09:47] LABS: ALANINE AMINOTRANSFERASE 11 U/L (12-78); ALBUMIN 3.1 G/DL (3.4-5.0); ALBUMIN/GLOBULIN RATIO 0.9 (1.0-2.7); ALKALINE PHOSPHATASE 78 U/L (46-116); ANION GAP 8 mmol/L (5-15); ASPARTATE AMINO TRANSFERASE 10 U/L (15-37); BILIRUBIN,TOTAL 0.4 MG/DL (0.2-1.0); BLOOD UREA NITROGEN 50 mg/dL (7-18); CALCIUM 8.9 MG/DL (8.5-10.1); CARBON DIOXIDE 31 MMOL/L (21-32); CHLORIDE 98 MMOL/L (98-107); CHOLESTEROL 86 MG/DL (< 200); CREATININE 7.7 MG/DL (0.55-1.30); HDL CHOLESTEROL 37 MG/DL (40-60); SODIUM 136 MMOL/L (136-145); TRIGLYCERIDES 141 MG/DL (30-150)
[2018-11-03 09:53] LABS: POTASSIUM 6.4 MMOL/L (3.5-5.1)
--- NOTE | 2018-11-03 10:37 | GI Progress Note ---
Assessment/Plan Problems: (1) Foot ulcer ICD Codes: L97.509 - Non-pressure chronic ulcer of other part of unspecified foot with unspecified severity SNOMED: 50482156 Qualifiers: Qualified Codes: L97.511 - Non-pressure chronic ulcer of other part of right foot limited to breakdown of skin (2) DM (diabetes mellitus) ICD Codes: E11.9 - Type 2 diabetes mellitus without complications SNOMED: 21757430 (3) Transplant ICD Codes: Z94.9 - Transplanted organ and tissue status, unspecified SNOMED: 433871998 Status: stable Status Narrative Discussed with Dr. Escalera Assessment/Plan History of liver transplant, currently on Prograf constipation Hemodialysis today Follow-up cardiology recommendations for elevated troponin levels advance diet prn transfusions ppi zofran prn Bowel regimen Trend LFTs Follow-up hepatitis panel The patient was seen and examined at bedside and all new and available data was reviewed in the patients chart. I agree with the above findings, impression and plan. (Patient seen earlier today. Signature stamp does not reflect patient encounter time.). - Jorge Escalera MD Subjective Gastrointestinal/Abdominal: Reports: no symptoms Subjective Recent bowel movement Denies any abdominal pain Objective Last 24 Hour Vital Signs Date Time Temp Pulse Resp B/P (MAP) Pulse Ox O2 Delivery O2 Flow Rate FiO2 11/03/18 08:59 85 129/92 11/03/18 04:00 98.0 80 19 120/68 (85) 98 11/03/18 04:00 80 11/03/18 00:00 98.2 82 18 110/54 (72) 99 11/03/18 00:00 79 11/02/18 21:00 Nasal Cannula 2.0 11/02/18 21:00 85 101/68 11/02/18 20:00 97.9 85 18 101/68 (79) 97 11/02/18 20:00 85 11/02/18 16:00 97.0 85 20 138/89 (105) 97 11/02/18 16:00 82 11/02/18 12:00 98.4 76 20 106/57 (73) 11/02/18 12:00 82 Intake and Output 11/02/18 11/03/18 18:59 06:59 Intake Total 240 ml 240 ml Balance 240 ml 240 ml Intake Oral 240 ml 240 ml Laboratory Tests Test 11/03/18 09:15 White Blood Count 7.0 K/UL (4.8-10.8) Red Blood Count 5.16 M/UL (4.70-6.10) Hemoglobin 13.1 G/DL (14.2-18.0) L Hematocrit 44.6 % (42.0-52.0) Mean Corpuscular Volume 86 FL (80-99) Mean Corpuscular Hemoglobin 25.3 PG (27.0-31.0) L Mean Corpuscular Hemoglobin Concent 29.3 G/DL (32.0-36.0) L Red Cell Distribution Width 18.7 % (11.6-14.8) H Platelet Count 165 K/UL (150-450) Mean Platelet Volume 7.0 FL (6.5-10.1) Neutrophils (%) (Auto) 75.2 % (45.0-75.0) H Lymphocytes (%) (Auto) 17.0 % (20.0-45.0) L Monocytes (%) (Auto) 6.8 % (1.0-10.0) Eosinophils (%) (Auto) 0.1 % (0.0-3.0) Basophils (%) (Auto) 0.9 % (0.0-2.0) Sodium Level 136 MMOL/L (136-145) Potassium Level 6.4 MMOL/L (3.5-5.1) *H Chloride Level 98 MMOL/L (98-107) Carbon Dioxide Level 31 MMOL/L (21-32) Anion Gap 8 mmol/L (5-15) Blood Urea Nitrogen 50 mg/dL (7-18) H Creatinine 7.7 MG/DL (0.55-1.30) H Estimat Glomerular Filtration Rate 7.1 mL/min (>60) Glucose Level 175 MG/DL (74-106) H Calcium Level 8.9 MG/DL (8.5-10.1) Total Bilirubin 0.4 MG/DL (0.2-1.0) Aspartate Amino Transf (AST/SGOT) 10 U/L (15-37) L Alanine Aminotransferase (ALT/SGPT) 11 U/L (12-78) L Alkaline Phosphatase 78 U/L (46-116) Troponin I 0.079 ng/mL (0.000-0.056) Total Protein 6.7 G/DL (6.4-8.2) Albumin 3.1 G/DL (3.4-5.0) L Globulin 3.6 g/dL Albumin/Globulin Ratio 0.9 (1.0-2.7) L Triglycerides Level 141 MG/DL (30-150) Cholesterol Level 86 MG/DL (< 200) LDL Cholesterol 23 mg/dL (<100) HDL Cholesterol 37 MG/DL (40-60) L Cholesterol/HDL Ratio 2.3 (3.3-4.4) L Height (Feet): 5 Height (Inches): 10.00 Weight (Pounds): 201 General Appearance: WD/WN, no apparent distress, alert Cardiovascular: normal rate Respiratory/Chest: normal breath sounds, no respiratory distress Abdominal Exam: normal bowel sounds, non tender, soft Extremities: non-tender Objective Hemodialysis today Kelvin Briggs NP Nov 03, 2018 10:37
--- NOTE | 2018-11-03 11:09 | Diagnostic Imaging Report ---
Indication: Right heel ulceration, cellulitis, pain. Concern for osteomyelitis Technique: Contiguous 5 mm thick transaxial imaging of the right foot obtained in a Siemens Sensation [address] scanner. Soft tissue and bone windows generated. Automatic Exposure Control was utilized. Total Dose length Product (DLP): [address] Dose Index Volume (CTDIvol): 0.15, 0.15, 15.26 mGy Comparison: none Findings: The area of clinical concern is the hindfoot. There is no definite soft tissue fluid collection to suggest abscess. There is some mild reticulation of the subcutaneous fat posterior to the calcaneus. There is no erosion of the calcaneus or other osseous structures. There is no periostitis. No soft tissue air identified. Extensive small vessel arterial calcifications are noted. No malalignment identified. IMPRESSION: No CT evidence of acute osteomyelitis or abscess. Note: The contraindication to MRI is noted. Consider triple phase bone scan as this is much more sensitive than CT or plain x-ray in the evaluation of acute osteomyelitis as clinically warranted. The CT scanner at [facility] is accredited by the [employer] and the scans are performed using dose optimization techniques as appropriate to a performed exam including Automatic Exposure control.
[2018-11-03 12:00] VITALS: BP 113/67
--- NOTE | 2018-11-03 15:22 | Cardiac Electrophysiology PN ---
Assessment/Plan Assessment/Plan 1. Troponin elevation. The patient does not have any chest pain. The patient has already been revascularized his coronary artery bypass graft and this could be due to renal failure. On Coreg 6.25 mg bid, aspirin and Lipitor 2. Status post coronary bypass graft as mentioned above. 3. Nonsustained ventricular tachycardia. The patient has history of prior myocardial infarction and bypass. EF 55% 4. Congestive heart failure. The patient is on hemodialysis, per Dr. Stevens. 5. End-stage renal disease, on hemodialysis. 6. Status post right sided dual chamber pacemaker. The patient does not know the brand of the pacemaker. Awaiting pacer brand and interrogate the pacemaker for further evaluation. 7. Right foot ulcer. On antibiotic. Further evaluation by Podiatry. Subjective Subjective In SR 80 intermittent pacing. No CP Objective Last 24 Hour Vital Signs Date Time Temp Pulse Resp B/P (MAP) Pulse Ox O2 Delivery O2 Flow Rate FiO2 11/03/18 12:00 97.3 76 20 113/67 (82) 96 11/03/18 12:00 76 11/03/18 09:00 Nasal Cannula 2.0 11/03/18 08:59 85 129/92 11/03/18 08:00 83 11/03/18 08:00 98.3 82 20 99/45 (63) 98 11/03/18 04:00 98.0 80 19 120/68 (85) 98 11/03/18 04:00 80 11/03/18 00:00 98.2 82 18 110/54 (72) 99 11/03/18 00:00 79 11/02/18 21:00 Nasal Cannula 2.0 11/02/18 21:00 85 101/68 11/02/18 20:00 97.9 85 18 101/68 (79) 97 11/02/18 20:00 85 11/02/18 16:00 97.0 85 20 138/89 (105) 97 11/02/18 16:00 82 Intake and Output 11/02/18 11/03/18 19:00 07:00 Intake Total 240 ml 240 ml Balance 240 ml 240 ml Intake Oral 240 ml 240 ml Laboratory Tests Test 11/03/18 09:15 White Blood Count 7.0 K/UL (4.8-10.8) Red Blood Count 5.16 M/UL (4.70-6.10) Hemoglobin 13.1 G/DL (14.2-18.0) L Hematocrit 44.6 % (42.0-52.0) Mean Corpuscular Volume 86 FL (80-99) Mean Corpuscular Hemoglobin 25.3 PG (27.0-31.0) L Mean Corpuscular Hemoglobin Concent 29.3 G/DL (32.0-36.0) L Red Cell Distribution Width 18.7 % (11.6-14.8) H Platelet Count 165 K/UL (150-450) Mean Platelet Volume 7.0 FL (6.5-10.1) Neutrophils (%) (Auto) 75.2 % (45.0-75.0) H Lymphocytes (%) (Auto) 17.0 % (20.0-45.0) L Monocytes (%) (Auto) 6.8 % (1.0-10.0) Eosinophils (%) (Auto) 0.1 % (0.0-3.0) Basophils (%) (Auto) 0.9 % (0.0-2.0) Sodium Level 136 MMOL/L (136-145) Potassium Level 6.4 MMOL/L (3.5-5.1) *H Chloride Level 98 MMOL/L (98-107) Carbon Dioxide Level 31 MMOL/L (21-32) Anion Gap 8 mmol/L (5-15) Blood Urea Nitrogen 50 mg/dL (7-18) H Creatinine 7.7 MG/DL (0.55-1.30) H Estimat Glomerular Filtration Rate 7.1 mL/min (>60) Glucose Level 175 MG/DL (74-106) H Calcium Level 8.9 MG/DL (8.5-10.1) Total Bilirubin 0.4 MG/DL (0.2-1.0) Aspartate Amino Transf (AST/SGOT) 10 U/L (15-37) L Alanine Aminotransferase (ALT/SGPT) 11 U/L (12-78) L Alkaline Phosphatase 78 U/L (46-116) Troponin I 0.079 ng/mL (0.000-0.056) Total Protein 6.7 G/DL (6.4-8.2) Albumin 3.1 G/DL (3.4-5.0) L Globulin 3.6 g/dL Albumin/Globulin Ratio 0.9 (1.0-2.7) L Triglycerides Level 141 MG/DL (30-150) Cholesterol Level 86 MG/DL (< 200) LDL Cholesterol 23 mg/dL (<100) HDL Cholesterol 37 MG/DL (40-60) L Cholesterol/HDL Ratio 2.3 (3.3-4.4) L Microbiology Date/Time Source Procedure Growth Status 10/31/18 20:39 Wound Gram Stain - Final Complete 10/31/18 20:39 Wound Culture - Final Staphylococcus Aureus - Mrsa Complete 10/31/18 21:00 Nasal Nares MRSA Culture - Final Staphylococcus Aureus - Mrsa Complete 10/31/18 21:00 Rectum VRE Culture - Final NO VANCOMYCIN RESISTANT ENTEROCOCCUS ... Complete 10/31/18 21:00 Rectum - Final NO CARBAPENEM-RESISTANT ENTEROBACTERI... Complete Objective HEAD AND NECK: Shows no JVD. LUNGS: Coarse rhonchi. CARDIOVASCULAR: Regular S1 and S2 with no gallop. Sternotomy is intact and pacemaker in the right chest. ABDOMEN: Soft. EXTREMITIES: A 1+ pitting edema as well as pulse in the right foot. Shivam Sharpe MD Nov 03, 2018 15:22
[2018-11-03 16:00] VITALS: BP 111/62
--- NOTE | 2018-11-03 17:02 | Nephrology Progress Note ---
Assessment/Plan Problem List: (1) ESRD (end stage renal disease) on dialysis (2) Foot ulcer (3) CHF (congestive heart failure) (4) Pacemaker Assessment ESRD with high K and SOB Foot ulcer, likely infected High Troponin likely NSTMI Pacer , Pleural effusion s/p CABGS s/p Liver transplant Plan Plan; HD 11/03 in process per cardio and ID refused Kayexelate Called Dr Gil Figueredo , his PMD and Conveyor Worker for CS transfer Podiatry and Vascular surgical eval Subjective ROS Limited/Unobtainable: No Constitutional: Reports: malaise Objective Objective Last 24 Hour Vital Signs Date Time Temp Pulse Resp B/P (MAP) Pulse Ox O2 Delivery O2 Flow Rate FiO2 11/03/18 12:00 97.3 76 20 113/67 (82) 96 11/03/18 12:00 76 11/03/18 09:00 Nasal Cannula 2.0 11/03/18 08:59 85 129/92 11/03/18 08:00 83 11/03/18 08:00 98.3 82 20 99/45 (63) 98 11/03/18 04:00 98.0 80 19 120/68 (85) 98 11/03/18 04:00 80 11/03/18 00:00 98.2 82 18 110/54 (72) 99 11/03/18 00:00 79 11/02/18 21:00 Nasal Cannula 2.0 11/02/18 21:00 85 101/68 11/02/18 20:00 97.9 85 18 101/68 (79) 97 11/02/18 20:00 85 Intake and Output 11/02/18 11/03/18 19:00 07:00 Intake Total 240 ml 240 ml Balance 240 ml 240 ml Intake Oral 240 ml 240 ml Laboratory Tests 11/03/18 09:15: White Blood Count 7.0, Red Blood Count 5.16, Hemoglobin 13.1L, Hematocrit 44.6, Mean Corpuscular Volume 86, Mean Corpuscular Hemoglobin 25.3L, Mean Corpuscular Hemoglobin Concent 29.3L, Red Cell Distribution Width 18.7H, Platelet Count 165 , Mean Platelet Volume 7.0, Neutrophils (%) (Auto) 75.2H, Lymphocytes (%) (Auto ) 17.0L, Monocytes (%) (Auto) 6.8, Eosinophils (%) (Auto) 0.1, Basophils (%) ( Auto) 0.9, Sodium Level 136, Potassium Level 6.4*H, Chloride Level 98, Carbon Dioxide Level 31, Anion Gap 8, Blood Urea Nitrogen 50H, Creatinine 7.7H, Estimat Glomerular Filtration Rate 7.1, Glucose Level 175H, Calcium Level 8.9, Total Bilirubin 0.4, Aspartate Amino Transf (AST/SGOT) 10L, Alanine Aminotransferase (ALT/SGPT) 11L, Alkaline Phosphatase 78, Troponin I 0.079H, Total Protein 6.7, Albumin 3.1L, Globulin 3.6, Albumin/Globulin Ratio 0.9L, Triglycerides Level 141, Cholesterol Level 86, LDL Cholesterol 23, HDL Cholesterol 37L, Cholesterol/HDL Ratio 2.3L Height (Feet): 5 Height (Inches): 10.00 Weight (Pounds): 200 General Appearance: no apparent distress, lethargic, other - on HD Cardiovascular: normal rate Respiratory/Chest: decreased breath sounds Abdomen: distended Nakul Stevens MD Nov 03, 2018 17:02
[2018-11-03] MEDS: HYDROcodone/Acetamin 5/325 tab ORAL PRN (17:45)
[2018-11-03 20:00] VITALS: BP 134/104
[2018-11-03] MEDS: Miralax 17gm pkt ORAL SCH (20:56)
--- NOTE | 2018-11-03 23:00 | Progress Note ---
DATE: 11/03/2018 SUBJECTIVE: This is a elderly 68-year-old male currently doing better. He has a wound on the leg. Vascular surgery consultation was obtained. The patient had arterial studies, had blockage on femoral artery 50% to 75%. The patient is currently awake, mild short of breath. PHYSICAL EXAMINATION: VITAL SIGNS: Blood pressure 111/62, pulse 82, no fever. CHEST: Bilateral few crackles. CARDIOVASCULAR: Regular rhythm. ABDOMEN: Soft. EXTREMITIES: CCE. NEUROLOGICAL: Generalized weakness. LABORATORY AND DIAGNOSTIC DATA: Potassium 6.4, BUN 50, and creatinine 7.7. ASSESSMENT: 1. Hyperkalemia. 2. End-stage renal disease. 3. Hypertension. 4. Fluid overload. 5. Positive troponin. 6. Peripheral vascular disease. 7. Vascular surgery on consult. 8. Reviewed arterial studies with the patient. 9. Continue current treatment. Jamari Carter M.D. DR: Veronica JOB#: [id number] CC:
[2018-11-04] VITALS: BP 118/53
[2018-11-04] MEDS: Vancomycin 1.25gm Premix q24h IVPB SCH
[2018-11-04] MEDS: HYDROcodone/Acetamin 5/325 tab ORAL PRN (01:50)
[2018-11-04 04:00] VITALS: BP 110/49
[2018-11-04] MEDS: NovoLOG Insulin Flexpen SUBQ SCH ×4 (06:27→21:41)
[2018-11-04 08:00] VITALS: BP 155/61
[2018-11-04 09:15] LABS: BASOPHILS % (AUTO) 0.8 % (0.0-2.0); HEMATOCRIT 44.9 % (42.0-52.0); LYMPHOCYTES % (AUTO) 19.8 % (20.0-45.0); MEAN CORPUSCULAR VOLUME 87 FL (80-99); MONOCYTES % (AUTO) 8.4 % (1.0-10.0); PLATELET COUNT 173 K/UL (150-450); RED BLOOD COUNT 5.17 M/UL (4.70-6.10); RED CELL DISTRIBUTION WIDTH 18.4 % (11.6-14.8); WHITE BLOOD COUNT 8.3 K/UL (4.8-10.8)
[2018-11-04] MEDS: Aspirin EC 81mg tab ORAL SCH (09:15)
[2018-11-04] MEDS: Calcium Acetate 667mg Tab ORAL SCH ×2 (09:15→17:25)
[2018-11-04] MEDS: Allopurinol 100mg Tab ORAL SCH (09:15)
[2018-11-04] MEDS: Nephrovite tab (Rena-Vite) ORAL SCH (09:15)
[2018-11-04] MEDS: Docusate 100mg cap ORAL SCH ×3 (09:16→17:24)
[2018-11-04] MEDS: Carvedilol 6.25mg Tab ORAL SCH ×2 (09:17→21:27)
[2018-11-04 09:41] LABS: ANION GAP 9 mmol/L (5-15); BLOOD UREA NITROGEN 48 mg/dL (7-18); CALCIUM 9.2 MG/DL (8.5-10.1); CARBON DIOXIDE 32 MMOL/L (21-32); CHLORIDE 97 MMOL/L (98-107); PHOSPHORUS 6.2 MG/DL (2.5-4.9); POTASSIUM 5.6 MMOL/L (3.5-5.1); SODIUM 137 MMOL/L (136-145)
--- NOTE | 2018-11-04 10:46 | GI Progress Note ---
Assessment/Plan Problems: (1) Foot ulcer ICD Codes: L97.509 - Non-pressure chronic ulcer of other part of unspecified foot with unspecified severity SNOMED: 39448473 Qualifiers: Qualified Codes: L97.511 - Non-pressure chronic ulcer of other part of right foot limited to breakdown of skin (2) DM (diabetes mellitus) ICD Codes: E11.9 - Type 2 diabetes mellitus without complications SNOMED: 21322502 (3) Transplant ICD Codes: Z94.9 - Transplanted organ and tissue status, unspecified SNOMED: 342904735 Status: unchanged Status Narrative Discussed with Dr. Escalera Assessment/Plan History of liver transplant, currently on Prograf constipation Hemodialysis today Follow-up cardiology recommendations for elevated troponin levels advance diet prn transfusions ppi zofran prn Bowel regimen Trend LFTs Follow-up hepatitis panel The patient was seen and examined at bedside and all new and available data was reviewed in the patients chart. I agree with the above findings, impression and plan. (Patient seen earlier today. Signature stamp does not reflect patient encounter time.). - Jorge Escalera MD Subjective Gastrointestinal/Abdominal: Reports: no symptoms Subjective Recent bowel movement Denies any abdominal pain Objective Last 24 Hour Vital Signs Date Time Temp Pulse Resp B/P (MAP) Pulse Ox O2 Delivery O2 Flow Rate FiO2 11/04/18 09:17 96 155/61 11/04/18 09:00 Nasal Cannula 2.0 11/04/18 08:00 97.0 76 18 155/61 (92) 11/04/18 08:00 76 11/04/18 04:00 78 11/04/18 04:00 97.0 81 18 110/49 (69) 98 11/04/18 00:00 79 11/04/18 00:00 97.4 81 20 118/53 (74) 100 11/03/18 21:00 Nasal Cannula 2.0 11/03/18 20:43 81 134/104 11/03/18 20:00 85 11/03/18 20:00 97.0 81 18 134/104 (114) 97 11/03/18 16:00 97.5 82 18 111/62 (78) 97 11/03/18 16:00 80 11/03/18 12:00 97.3 76 20 113/67 (82) 96 11/03/18 12:00 76 Intake and Output 11/03/18 11/04/18 18:59 06:59 Intake Total 360 ml Output Total 2500 ml Balance -2140 ml Intake Oral 360 ml Hemodialysis UF 2500 ml # Voids 2 # Bowel Movements 1 Laboratory Tests Test 11/04/18 09:05 White Blood Count 8.3 K/UL (4.8-10.8) Red Blood Count 5.17 M/UL (4.70-6.10) Hemoglobin 13.0 G/DL (14.2-18.0) L Hematocrit 44.9 % (42.0-52.0) Mean Corpuscular Volume 87 FL (80-99) Mean Corpuscular Hemoglobin 25.2 PG (27.0-31.0) L Mean Corpuscular Hemoglobin Concent 29.0 G/DL (32.0-36.0) L Red Cell Distribution Width 18.4 % (11.6-14.8) H Platelet Count 173 K/UL (150-450) Mean Platelet Volume 6.3 FL (6.5-10.1) L Neutrophils (%) (Auto) 71.0 % (45.0-75.0) Lymphocytes (%) (Auto) 19.8 % (20.0-45.0) L Monocytes (%) (Auto) 8.4 % (1.0-10.0) Eosinophils (%) (Auto) 0.0 % (0.0-3.0) Basophils (%) (Auto) 0.8 % (0.0-2.0) Sodium Level 137 MMOL/L (136-145) Potassium Level 5.6 MMOL/L (3.5-5.1) H Chloride Level 97 MMOL/L (98-107) L Carbon Dioxide Level 32 MMOL/L (21-32) Anion Gap 9 mmol/L (5-15) Blood Urea Nitrogen 48 mg/dL (7-18) H Creatinine 7.0 MG/DL (0.55-1.30) H Estimat Glomerular Filtration Rate 7.9 mL/min (>60) Glucose Level 183 MG/DL (74-106) H Calcium Level 9.2 MG/DL (8.5-10.1) Phosphorus Level 6.2 MG/DL (2.5-4.9) H Magnesium Level 2.1 MG/DL (1.8-2.4) Height (Feet): 5 Height (Inches): 10.00 Weight (Pounds): 205 General Appearance: WD/WN, no apparent distress, alert Cardiovascular: normal rate Respiratory/Chest: normal breath sounds, no respiratory distress Abdominal Exam: normal bowel sounds, non tender, soft Extremities: non-tender Kelvin Briggs NP Nov 04, 2018 10:46
[2018-11-04 12:00] VITALS: BP 118/64
--- NOTE | 2018-11-04 12:00 | Nephrology Progress Note ---
Assessment/Plan Problem List: (1) ESRD (end stage renal disease) on dialysis (2) Foot ulcer (3) CHF (congestive heart failure) (4) Pacemaker Assessment ESRD with high K and SOB Foot ulcer, likely infected High Troponin likely NSTMI Pacer , Pleural effusion s/p CABGS s/p Liver transplant Plan Plan; HD 11/03 next 11/05 per cardio and ID try Kayexelate Called Dr Gil Figueredo , his PMD and Race Steward for CS transfer Podiatry and Vascular surgical eval Subjective ROS Limited/Unobtainable: No Constitutional: Reports: malaise Objective Objective Last 24 Hour Vital Signs Date Time Temp Pulse Resp B/P (MAP) Pulse Ox O2 Delivery O2 Flow Rate FiO2 11/04/18 09:17 96 155/61 11/04/18 09:00 Nasal Cannula 2.0 11/04/18 08:00 97.0 76 18 155/61 (92) 11/04/18 08:00 76 11/04/18 04:00 78 11/04/18 04:00 97.0 81 18 110/49 (69) 98 11/04/18 00:00 79 11/04/18 00:00 97.4 81 20 118/53 (74) 100 11/03/18 21:00 Nasal Cannula 2.0 11/03/18 20:43 81 134/104 11/03/18 20:00 85 11/03/18 20:00 97.0 81 18 134/104 (114) 97 11/03/18 16:00 97.5 82 18 111/62 (78) 97 11/03/18 16:00 80 Intake and Output 11/03/18 11/04/18 18:59 06:59 Intake Total 360 ml Output Total 2500 ml Balance -2140 ml Intake Oral 360 ml Hemodialysis UF 2500 ml # Voids 2 # Bowel Movements 1 Laboratory Tests 11/04/18 09:05: White Blood Count 8.3, Red Blood Count 5.17, Hemoglobin 13.0L, Hematocrit 44.9, Mean Corpuscular Volume 87, Mean Corpuscular Hemoglobin 25.2L, Mean Corpuscular Hemoglobin Concent 29.0L, Red Cell Distribution Width 18.4H, Platelet Count 173 , Mean Platelet Volume 6.3L, Neutrophils (%) (Auto) 71.0, Lymphocytes (%) (Auto ) 19.8L, Monocytes (%) (Auto) 8.4, Eosinophils (%) (Auto) 0.0, Basophils (%) ( Auto) 0.8, Sodium Level 137, Potassium Level 5.6H, Chloride Level 97L, Carbon Dioxide Level 32, Anion Gap 9, Blood Urea Nitrogen 48H, Creatinine 7.0H, Estimat Glomerular Filtration Rate 7.9, Glucose Level 183H, Calcium Level 9.2, Phosphorus Level 6.2H, Magnesium Level 2.1 Height (Feet): 5 Height (Inches): 10.00 Weight (Pounds): 205 General Appearance: no apparent distress Cardiovascular: normal rate Respiratory/Chest: decreased breath sounds Abdomen: soft Objective no change Nakul Stevens MD Nov 04, 2018 12:00
[2018-11-04 16:00] VITALS: BP 107/58
--- NOTE | 2018-11-04 16:29 | Cardiac Electrophysiology PN ---
Assessment/Plan Assessment/Plan 1. Troponin elevation. The patient does not have any chest pain. The patient has already been revascularized his coronary artery bypass graft and this could be due to renal failure. On Coreg 6.25 mg bid, aspirin and Lipitor 2. Status post coronary bypass graft as mentioned above. 3. Nonsustained ventricular tachycardia. The patient has history of prior myocardial infarction and bypass. EF 55% 4. Congestive heart failure. The patient is on hemodialysis, per Dr. Stevens. 5. End-stage renal disease, on hemodialysis. 6. Status post right sided dual chamber pacemaker. The patient does not know the brand of the pacemaker. Awaiting pacer brand and interrogate the pacemaker for further evaluation. 7. Right foot ulcer. On antibiotic. Further evaluation by Podiatry. 8. History of liver transplant on Prograf Subjective Subjective In SR . No CP Objective Last 24 Hour Vital Signs Date Time Temp Pulse Resp B/P (MAP) Pulse Ox O2 Delivery O2 Flow Rate FiO2 11/04/18 09:17 96 155/61 11/04/18 09:00 Nasal Cannula 2.0 11/04/18 08:00 97.0 76 18 155/61 (92) 11/04/18 08:00 76 11/04/18 04:00 78 11/04/18 04:00 97.0 81 18 110/49 (69) 98 11/04/18 00:00 79 11/04/18 00:00 97.4 81 20 118/53 (74) 100 11/03/18 21:00 Nasal Cannula 2.0 11/03/18 20:43 81 134/104 11/03/18 20:00 85 11/03/18 20:00 97.0 81 18 134/104 (114) 97 Intake and Output 11/03/18 11/04/18 19:00 07:00 Intake Total 360 ml Output Total 2500 ml Balance -2140 ml Intake Oral 360 ml Hemodialysis UF 2500 ml # Voids 2 # Bowel Movements 1 Laboratory Tests Test 11/04/18 09:05 White Blood Count 8.3 K/UL (4.8-10.8) Red Blood Count 5.17 M/UL (4.70-6.10) Hemoglobin 13.0 G/DL (14.2-18.0) L Hematocrit 44.9 % (42.0-52.0) Mean Corpuscular Volume 87 FL (80-99) Mean Corpuscular Hemoglobin 25.2 PG (27.0-31.0) L Mean Corpuscular Hemoglobin Concent 29.0 G/DL (32.0-36.0) L Red Cell Distribution Width 18.4 % (11.6-14.8) H Platelet Count 173 K/UL (150-450) Mean Platelet Volume 6.3 FL (6.5-10.1) L Neutrophils (%) (Auto) 71.0 % (45.0-75.0) Lymphocytes (%) (Auto) 19.8 % (20.0-45.0) L Monocytes (%) (Auto) 8.4 % (1.0-10.0) Eosinophils (%) (Auto) 0.0 % (0.0-3.0) Basophils (%) (Auto) 0.8 % (0.0-2.0) Sodium Level 137 MMOL/L (136-145) Potassium Level 5.6 MMOL/L (3.5-5.1) H Chloride Level 97 MMOL/L (98-107) L Carbon Dioxide Level 32 MMOL/L (21-32) Anion Gap 9 mmol/L (5-15) Blood Urea Nitrogen 48 mg/dL (7-18) H Creatinine 7.0 MG/DL (0.55-1.30) H Estimat Glomerular Filtration Rate 7.9 mL/min (>60) Glucose Level 183 MG/DL (74-106) H Calcium Level 9.2 MG/DL (8.5-10.1) Phosphorus Level 6.2 MG/DL (2.5-4.9) H Magnesium Level 2.1 MG/DL (1.8-2.4) Objective HEAD AND NECK: Shows no JVD. LUNGS: Coarse rhonchi. CARDIOVASCULAR: Regular S1 and S2 with no gallop. Sternotomy is intact and pacemaker in the right chest. ABDOMEN: Soft. EXTREMITIES: A 1+ pitting edema as well as pulse in the right foot. Shivam Sharpe MD Nov 04, 2018 16:29
--- NOTE | 2018-11-04 17:01 | Infectious Diseases Prog Note ---
Assessment/Plan Problems: (1) Foot ulcer Assessment & Plan: in diabetic patient , with necrosis and Infection due to MRSA , continue vancomycin treatment , pending vascular clearance and surgical debridement. will order bone scan to rule out osteomyelitis of the heel . (2) Cellulitis, abdominal wall Assessment & Plan: already on vancomycin (3) DM (diabetes mellitus) Assessment & Plan: recommend tight glycemic control to keep blood glucose between 100-140 (4) CHF (congestive heart failure) Subjective Allergies: Coded Allergies: CEPHALEXIN (Unverified Allergy, Unknown, 02/24/14) SULFAMETHOXAZOLE (Unverified Allergy, Unknown, 02/24/14) TRIMETHOPRIM (Unverified Allergy, Unknown, 02/24/14) Objective Vital Signs Last 24 Hour Vital Signs Date Time Temp Pulse Resp B/P (MAP) Pulse Ox O2 Delivery O2 Flow Rate FiO2 11/04/18 09:17 96 155/61 11/04/18 09:00 Nasal Cannula 2.0 11/04/18 08:00 97.0 76 18 155/61 (92) 11/04/18 08:00 76 11/04/18 04:00 78 11/04/18 04:00 97.0 81 18 110/49 (69) 98 11/04/18 00:00 79 11/04/18 00:00 97.4 81 20 118/53 (74) 100 11/03/18 21:00 Nasal Cannula 2.0 11/03/18 20:43 81 134/104 11/03/18 20:00 85 11/03/18 20:00 97.0 81 18 134/104 (114) 97 Height (Feet): 5 Height (Inches): 10.00 Weight (Pounds): 98 Laboratory Tests Test 11/04/18 09:05 White Blood Count 8.3 K/UL (4.8-10.8) Red Blood Count 5.17 M/UL (4.70-6.10) Hemoglobin 13.0 G/DL (14.2-18.0) L Hematocrit 44.9 % (42.0-52.0) Mean Corpuscular Volume 87 FL (80-99) Mean Corpuscular Hemoglobin 25.2 PG (27.0-31.0) L Mean Corpuscular Hemoglobin Concent 29.0 G/DL (32.0-36.0) L Red Cell Distribution Width 18.4 % (11.6-14.8) H Platelet Count 173 K/UL (150-450) Mean Platelet Volume 6.3 FL (6.5-10.1) L Neutrophils (%) (Auto) 71.0 % (45.0-75.0) Lymphocytes (%) (Auto) 19.8 % (20.0-45.0) L Monocytes (%) (Auto) 8.4 % (1.0-10.0) Eosinophils (%) (Auto) 0.0 % (0.0-3.0) Basophils (%) (Auto) 0.8 % (0.0-2.0) Sodium Level 137 MMOL/L (136-145) Potassium Level 5.6 MMOL/L (3.5-5.1) H Chloride Level 97 MMOL/L (98-107) L Carbon Dioxide Level 32 MMOL/L (21-32) Anion Gap 9 mmol/L (5-15) Blood Urea Nitrogen 48 mg/dL (7-18) H Creatinine 7.0 MG/DL (0.55-1.30) H Estimat Glomerular Filtration Rate 7.9 mL/min (>60) Glucose Level 183 MG/DL (74-106) H Calcium Level 9.2 MG/DL (8.5-10.1) Phosphorus Level 6.2 MG/DL (2.5-4.9) H Magnesium Level 2.1 MG/DL (1.8-2.4) Current Medications Medications (Trade) Dose Ordered Sig/Aleks Route PRN Reason Start Time Stop Time Status Last Admin Dose Admin Acetaminophen (Tylenol) 650 mg Q4H PRN ORAL Mild Pain/Temp > 100.5 10/31/18 22:45 11/30/18 22:44 Acetaminophen/ Hydrocodone Bitart ([place] 5/325) 1 tab Q4H PRN ORAL Moderate Pain (Pain Scale 4-6) 11/01/18 05:15 11/08/18 05:14 11/04/18 01:50 Allopurinol (Zyloprim) 100 mg DAILY ORAL 11/01/18 09:00 12/01/18 08:59 11/04/18 09:15 Aspirin (Ecotrin) 81 mg DAILY ORAL 11/03/18 09:00 12/03/18 08:59 11/04/18 09:15 Atorvastatin Calcium (Lipitor) 10 mg BEDTIME ORAL 11/02/18 21:00 12/02/18 20:59 11/03/18 20:44 Calcium Acetate (Phoslo) 667 mg BID ORAL 11/01/18 12:00 12/01/18 11:59 11/04/18 09:15 Carvedilol (Coreg) 6.25 mg EVERY 12 HOURS ORAL 11/01/18 09:00 12/01/18 08:59 11/04/18 09:17 Dextrose (Dextrose 50%) 25 ml Q30M PRN IV Hypoglycemia 10/31/18 22:45 11/30/18 22:44 Dextrose (Dextrose 50%) 50 ml Q30M PRN IV Hypoglycemia 10/31/18 22:45 11/30/18 22:44 Docusate Sodium (Colace) 100 mg TID ORAL 11/02/18 13:00 12/01/18 17:59 11/04/18 13:53 Gabapentin (Neurontin) 300 mg DAILY ORAL 11/02/18 11:00 12/02/18 10:59 11/04/18 09:16 Insulin Aspart (NovoLOG) BEFORE MEALS AND HS SUBQ 11/01/18 06:30 12/01/18 06:29 11/04/18 11:40 Midodrine (Pro-Amatine) 2.5 mg TID ORAL 11/01/18 18:00 12/01/18 11:59 11/04/18 13:53 Morphine Sulfate (Morphine Sulfate) 2 mg Q4H PRN IM For Pain over scale 7 11/02/18 12:45 11/08/18 22:14 11/03/18 20:46 Nateglinide (Starlix) 120 mg TIAC ORAL 11/01/18 11:30 12/01/18 11:29 11/04/18 11:39 Nicotine (Nicoderm) 1 patch Q24H TDERMAL 11/01/18 22:15 12/01/18 22:14 11/03/18 21:03 Pantoprazole (Protonix) 40 mg BID ORAL 11/01/18 18:00 12/02/18 08:59 11/04/18 09:15 Polyethylene Glycol (Miralax) 17 gm BEDTIME ORAL 11/01/18 21:00 12/01/18 20:59 Sevelamer Carbonate (Renvela) 800 mg THREE TIMES A DAY ORAL 11/01/18 18:00 12/01/18 17:59 11/04/18 13:53 Tacrolimus (Prograf) 2 mg MoWeFr@0000,1200 ORAL 11/02/18 00:00 12/02/18 00:00 11/04/18 11:39 Tacrolimus (Prograf) 2 mg SuTuThSa@0900,2100 ORAL 11/01/18 21:00 12/01/18 20:59 11/03/18 21:03 Vancomycin HCl (Vanco rx to dose) 1 ea DAILY PRN MISC Per rx protocol 10/31/18 22:45 11/30/18 22:44 Vancomycin HCl/ Dextrose 275 ml @ 183.333 mls/hr Q72H IVPB 11/01/18 00:00 11/06/18 00:00 11/01/18 01:17 Vitamin B Complex/ Vit C/Folic Acid (Nephrovite) 1 tab DAILY ORAL 11/01/18 09:00 12/01/18 08:59 11/04/18 09:15 Francois Landis M.D. Nov 04, 2018 17:01
[2018-11-04] MEDS: Morphine Sulfate 2mg/ml Inj(IV/IM USE ONLY) IM PRN (18:15)
[2018-11-04] MEDS ORDERED: Sodium Polystyrene Sulfonate 15gm Powder ORAL SCH (18:30)
[2018-11-04] MEDS ORDERED: Lidocaine 1% Plain 30 ml INJ PRN (19:15)
[2018-11-04] MEDS ORDERED: Heparin1,000 units/500ml Premix(Conc:2 units/ml) IV PRN (19:15)
--- NOTE | 2018-11-04 19:30 | Progress Note ---
DATE: 11/04/2018 SUBJECTIVE: This is an elderly 68-year-old male has poor IV access and has a wound on the right foot. ID consult was obtained. The patient also has peripheral vascular disease, also waiting for vascular surgery re-evaluation as well as [facility] transfer. The patient otherwise looks comfortable. The patient has poor IV access. PICC line was ordered. PHYSICAL EXAMINATION: VITAL SIGNS: Blood pressure 110/49, pulse 78, no fever. CHEST: Bilaterally clear. CARDIOVASCULAR: Regular rhythm ABDOMEN: Soft. EXTREMITIES: Had a foot ulcer. GENITOURINARY: Deferred. LABORATORY DATA: Microbiology, the patient is growing MRSA in the nose. We will currently continue IV antibiotics once IV access is established. ASSESSMENT: 1. Hyperkalemia. 2. Hypertension. 3. Diabetes. 4. End-stage renal disease. PLAN: We will currently continue current treatment. Awaiting for the continuous pillowcase cutter aware of transfer to [facility]. Jamari Carter M.D. DR: Veronica JOB#: [id number] CC:
[2018-11-04 20:00] VITALS: BP 121/52
[2018-11-04] MEDS: Miralax 17gm pkt ORAL SCH (21:00)
[2018-11-05] VITALS: BP_SYST 117; BP_SYST 139; BP_DIAS 59; BP_DIAS 76
[2018-11-05] MEDS: Morphine Sulfate 2mg/ml Inj(IV/IM USE ONLY) IM PRN (00:08)
[2018-11-05 04:00] VITALS: BP 113/83
[2018-11-05] MEDS: NovoLOG Insulin Flexpen SUBQ SCH ×3 (06:53→16:30)
[2018-11-05 08:00] VITALS: BP 131/59
[2018-11-05 08:59] LABS: BASOPHILS % (AUTO) 1.3 % (0.0-2.0); EOSINOPHILS % (AUTO) 0.1 % (0.0-3.0); HEMATOCRIT 45.7 % (42.0-52.0); HEMOGLOBIN 13.1 G/DL (14.2-18.0); MEAN CORPUSCULAR VOLUME 87 FL (80-99); NEUTROPHILS % (AUTO) 77.6 % (45.0-75.0); PLATELET COUNT 177 K/UL (150-450); RED BLOOD COUNT 5.27 M/UL (4.70-6.10); RED CELL DISTRIBUTION WIDTH 18.4 % (11.6-14.8); WHITE BLOOD COUNT 9.6 K/UL (4.8-10.8)
[2018-11-05] MEDS: Docusate 100mg cap ORAL SCH ×3 (09:00→18:00)
[2018-11-05] MEDS: Carvedilol 6.25mg Tab ORAL SCH (09:00)
[2018-11-05] MEDS: Allopurinol 100mg Tab ORAL SCH (09:00)
[2018-11-05] MEDS: Calcium Acetate 667mg Tab ORAL SCH ×2 (09:00→18:00)
[2018-11-05] MEDS: Aspirin EC 81mg tab ORAL SCH (09:00)
[2018-11-05] MEDS: Nephrovite tab (Rena-Vite) ORAL SCH (09:00)
[2018-11-05 09:24] LABS: ANION GAP 10 mmol/L (5-15); BLOOD UREA NITROGEN 64 mg/dL (7-18); CALCIUM 8.9 MG/DL (8.5-10.1); CARBON DIOXIDE 30 MMOL/L (21-32); CHLORIDE 96 MMOL/L (98-107); CREATININE 8.3 MG/DL (0.55-1.30); PHOSPHORUS 7.2 MG/DL (2.5-4.9); SODIUM 135 MMOL/L (136-145)
[2018-11-05 09:27] LABS: POTASSIUM 6.3 MMOL/L (3.5-5.1)
--- NOTE | 2018-11-05 10:54 | GI Progress Note ---
Assessment/Plan Problems: (1) Foot ulcer ICD Codes: L97.509 - Non-pressure chronic ulcer of other part of unspecified foot with unspecified severity SNOMED: 72496088 Qualifiers: Qualified Codes: L97.511 - Non-pressure chronic ulcer of other part of right foot limited to breakdown of skin (2) DM (diabetes mellitus) ICD Codes: E11.9 - Type 2 diabetes mellitus without complications SNOMED: 51452469 (3) Transplant ICD Codes: Z94.9 - Transplanted organ and tissue status, unspecified SNOMED: 689768188 Status: stable, unchanged Status Narrative Discussed with Dr. Escalera. Assessment/Plan History of liver transplant, currently on Prograf constipation Hemodialysis today Follow-up cardiology recommendations for elevated troponin levels advance diet prn transfusions ppi zofran prn Bowel regimen Trend LFTs follow labs outpatient GI procedures The patient was seen and examined at bedside and all new and available data was reviewed in the patients chart. I agree with the above findings, impression and plan. (Patient seen earlier today. Signature stamp does not reflect patient encounter time.). - Jorge Escalera MD Subjective Gastrointestinal/Abdominal: Reports: no symptoms Subjective Recent bowel movement Denies any abdominal pain Objective Last 24 Hour Vital Signs Date Time Temp Pulse Resp B/P (MAP) Pulse Ox O2 Delivery O2 Flow Rate FiO2 11/05/18 09:00 82 131/59 11/05/18 09:00 Nasal Cannula 2.0 11/05/18 08:00 82 11/05/18 08:00 96.8 82 20 131/59 (83) 95 11/05/18 04:00 96.9 78 18 113/83 (93) 95 11/05/18 04:00 77 11/05/18 00:00 76 11/05/18 00:00 96.8 79 18 139/76 (97) 97 11/04/18 21:27 80 121/52 11/04/18 21:00 Nasal Cannula 2.0 11/04/18 20:00 96.1 80 18 121/52 (75) 98 11/04/18 20:00 74 11/04/18 16:00 97.8 74 18 107/58 (74) 96 11/04/18 16:00 74 11/04/18 12:00 75 11/04/18 12:00 97.6 75 18 118/64 (82) 99 Intake and Output 11/04/18 11/05/18 19:00 07:00 Intake Total 1200 ml Balance 1200 ml Intake Oral 1200 ml # Voids 2 Laboratory Tests Test 11/05/18 08:40 White Blood Count 9.6 K/UL (4.8-10.8) Red Blood Count 5.27 M/UL (4.70-6.10) Hemoglobin 13.1 G/DL (14.2-18.0) L Hematocrit 45.7 % (42.0-52.0) Mean Corpuscular Volume 87 FL (80-99) Mean Corpuscular Hemoglobin 24.8 PG (27.0-31.0) L Mean Corpuscular Hemoglobin Concent 28.6 G/DL (32.0-36.0) L Red Cell Distribution Width 18.4 % (11.6-14.8) H Platelet Count 177 K/UL (150-450) Mean Platelet Volume 7.8 FL (6.5-10.1) Neutrophils (%) (Auto) 77.6 % (45.0-75.0) H Lymphocytes (%) (Auto) 13.0 % (20.0-45.0) L Monocytes (%) (Auto) 8.0 % (1.0-10.0) Eosinophils (%) (Auto) 0.1 % (0.0-3.0) Basophils (%) (Auto) 1.3 % (0.0-2.0) Sodium Level 135 MMOL/L (136-145) L Potassium Level 6.3 MMOL/L (3.5-5.1) *H Chloride Level 96 MMOL/L (98-107) L Carbon Dioxide Level 30 MMOL/L (21-32) Anion Gap 10 mmol/L (5-15) Blood Urea Nitrogen 64 mg/dL (7-18) H Creatinine 8.3 MG/DL (0.55-1.30) H Estimat Glomerular Filtration Rate 6.5 mL/min (>60) Glucose Level 127 MG/DL (74-106) H Calcium Level 8.9 MG/DL (8.5-10.1) Phosphorus Level 7.2 MG/DL (2.5-4.9) H Magnesium Level 2.1 MG/DL (1.8-2.4) Height (Feet): 5 Height (Inches): 10.00 Weight (Pounds): 211 General Appearance: WD/WN, no apparent distress, alert Cardiovascular: normal rate Respiratory/Chest: normal breath sounds, no respiratory distress Abdominal Exam: normal bowel sounds, non tender, soft Extremities: normal range of motion, non-tender, other - foot ulcer Kelvin Briggs NP Nov 05, 2018 10:54
[2018-11-05 12:00] VITALS: BP 123/70
[2018-11-05] MEDS ORDERED: Vancomycin 1gm/D5W 275ml IVPB SCH ×2 (15:00)
--- NOTE | 2018-11-05 15:13 | Nephrology Progress Note ---
Assessment/Plan Problem List: (1) ESRD (end stage renal disease) on dialysis (2) Foot ulcer (3) CHF (congestive heart failure) (4) Pacemaker Assessment ESRD with high K and SOB Foot ulcer, likely infected High Troponin likely NSTMI Pacer , Pleural effusion s/p CABGS s/p Liver transplant Plan Plan; HD 11/03 next 11/05 check ABG per cardio and ID try Kayexelate daily Called Dr Gil Figueredo , his PMD and Accounts Payable Accountant for CS transfer Podiatry and Vascular surgical eval Subjective ROS Limited/Unobtainable: No Constitutional: Reports: malaise, weakness Objective Objective Last 24 Hour Vital Signs Date Time Temp Pulse Resp B/P (MAP) Pulse Ox O2 Delivery O2 Flow Rate FiO2 11/05/18 12:00 96.9 84 20 123/70 (87) 96 11/05/18 12:00 83 11/05/18 09:00 82 131/59 11/05/18 09:00 Nasal Cannula 2.0 11/05/18 08:00 82 11/05/18 08:00 96.8 82 20 131/59 (83) 95 11/05/18 04:00 96.9 78 18 113/83 (93) 95 11/05/18 04:00 77 11/05/18 00:00 76 11/05/18 00:00 96.8 79 18 139/76 (97) 97 11/04/18 21:27 80 121/52 11/04/18 21:00 Nasal Cannula 2.0 11/04/18 20:00 96.1 80 18 121/52 (75) 98 11/04/18 20:00 74 11/04/18 16:00 97.8 74 18 107/58 (74) 96 11/04/18 16:00 74 Intake and Output 11/04/18 11/05/18 18:59 06:59 Intake Total 1200 ml Balance 1200 ml Intake Oral 1200 ml # Voids 2 Laboratory Tests 11/05/18 08:40: White Blood Count 9.6, Red Blood Count 5.27, Hemoglobin 13.1L, Hematocrit 45.7, Mean Corpuscular Volume 87, Mean Corpuscular Hemoglobin 24.8L, Mean Corpuscular Hemoglobin Concent 28.6L, Red Cell Distribution Width 18.4H, Platelet Count 177 , Mean Platelet Volume 7.8, Neutrophils (%) (Auto) 77.6H, Lymphocytes (%) (Auto ) 13.0L, Monocytes (%) (Auto) 8.0, Eosinophils (%) (Auto) 0.1, Basophils (%) ( Auto) 1.3, Sodium Level 135L, Potassium Level 6.3*H, Chloride Level 96L, Carbon Dioxide Level 30, Anion Gap 10, Blood Urea Nitrogen 64H, Creatinine 8.3H, Estimat Glomerular Filtration Rate 6.5, Glucose Level 127H, Calcium Level 8.9, Phosphorus Level 7.2H, Magnesium Level 2.1 Height (Feet): 5 Height (Inches): 10.00 Weight (Pounds): 211 Objective no change Nakul Stevens MD Nov 05, 2018 15:13
--- NOTE | 2018-11-05 15:14 | Infectious Diseases Prog Note ---
Assessment/Plan Problems: (1) Foot ulcer Assessment & Plan: in diabetic patient , with necrosis and Infection due to MRSA , rule out deep infection . continue vancomycin treatment with HD , pending vascular clearance and surgical debridement. await bone scan to rule out osteomyelitis of the heel . (2) Cellulitis, abdominal wall Assessment & Plan: already on vancomycin improving (3) DM (diabetes mellitus) Assessment & Plan: recommend tight glycemic control to keep blood glucose between 100-140 (4) CHF (congestive heart failure) Assessment & Plan: on HD , renal is following, monitor daily weight (5) Encephalopathy acute Assessment & Plan: suspect metabolic, with high urea level, will check his ammonia, recommend neurology eval Subjective ROS Limited/Unobtainable: Yes Allergies: Coded Allergies: CEPHALEXIN (Unverified Allergy, Unknown, 02/24/14) SULFAMETHOXAZOLE (Unverified Allergy, Unknown, 02/24/14) TRIMETHOPRIM (Unverified Allergy, Unknown, 02/24/14) Subjective he was lethargic and minimally responsive, open eyes and make eye contact, but goes back to sleep, has swelling in his eyes lids . no fever or chills, no skin redness around the heel wound Objective Vital Signs Last 24 Hour Vital Signs Date Time Temp Pulse Resp B/P (MAP) Pulse Ox O2 Delivery O2 Flow Rate FiO2 11/05/18 12:00 96.9 84 20 123/70 (87) 96 11/05/18 12:00 83 11/05/18 09:00 82 131/59 11/05/18 09:00 Nasal Cannula 2.0 11/05/18 08:00 82 11/05/18 08:00 96.8 82 20 131/59 (83) 95 11/05/18 04:00 96.9 78 18 113/83 (93) 95 11/05/18 04:00 77 11/05/18 00:00 76 11/05/18 00:00 96.8 79 18 139/76 (97) 97 11/04/18 21:27 80 121/52 11/04/18 21:00 Nasal Cannula 2.0 11/04/18 20:00 96.1 80 18 121/52 (75) 98 11/04/18 20:00 74 11/04/18 16:00 97.8 74 18 107/58 (74) 96 11/04/18 16:00 74 Height (Feet): 5 Height (Inches): 10.00 Weight (Pounds): 211 General Appearance: WD/WN, no acute distress, other - lethargic, somnolent HEENT: normocephalic, atraumatic, anicteric, mucous membranes moist, PERRL, supple, no JVD Respiratory/Chest: chest wall non-tender, no respiratory distress, no accessory muscle use, decreased breath sounds, crackles/rales Cardiovascular: normal peripheral pulses, normal rate, regular rhythm, no gallop/murmur, no JVD Abdomen: normal bowel sounds, soft, non tender, no organomegaly, non distended , no mass, no scars Extremities: no cyanosis, no clubbing Skin: no rash, no lesions, ulcers 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: alert, unresponsiveness Lymphatic: no neck adenopathy, no groin adenopathy Musculoskeletal: normal muscle bulk, no effusion Laboratory Tests Test 11/05/18 08:40 White Blood Count 9.6 K/UL (4.8-10.8) Red Blood Count 5.27 M/UL (4.70-6.10) Hemoglobin 13.1 G/DL (14.2-18.0) L Hematocrit 45.7 % (42.0-52.0) Mean Corpuscular Volume 87 FL (80-99) Mean Corpuscular Hemoglobin 24.8 PG (27.0-31.0) L Mean Corpuscular Hemoglobin Concent 28.6 G/DL (32.0-36.0) L Red Cell Distribution Width 18.4 % (11.6-14.8) H Platelet Count 177 K/UL (150-450) Mean Platelet Volume 7.8 FL (6.5-10.1) Neutrophils (%) (Auto) 77.6 % (45.0-75.0) H Lymphocytes (%) (Auto) 13.0 % (20.0-45.0) L Monocytes (%) (Auto) 8.0 % (1.0-10.0) Eosinophils (%) (Auto) 0.1 % (0.0-3.0) Basophils (%) (Auto) 1.3 % (0.0-2.0) Sodium Level 135 MMOL/L (136-145) L Potassium Level 6.3 MMOL/L (3.5-5.1) *H Chloride Level 96 MMOL/L (98-107) L Carbon Dioxide Level 30 MMOL/L (21-32) Anion Gap 10 mmol/L (5-15) Blood Urea Nitrogen 64 mg/dL (7-18) H Creatinine 8.3 MG/DL (0.55-1.30) H Estimat Glomerular Filtration Rate 6.5 mL/min (>60) Glucose Level 127 MG/DL (74-106) H Calcium Level 8.9 MG/DL (8.5-10.1) Phosphorus Level 7.2 MG/DL (2.5-4.9) H Magnesium Level 2.1 MG/DL (1.8-2.4) Current Medications Medications (Trade) Dose Ordered Sig/Aleks Route PRN Reason Start Time Stop Time Status Last Admin Dose Admin Acetaminophen (Tylenol) 650 mg Q4H PRN ORAL Mild Pain/Temp > 100.5 10/31/18 22:45 11/30/18 22:44 Acetaminophen/ Hydrocodone Bitart ([place] 5/325) 1 tab Q4H PRN ORAL Moderate Pain (Pain Scale 4-6) 11/01/18 05:15 11/08/18 05:14 11/04/18 01:50 Allopurinol (Zyloprim) 100 mg DAILY ORAL 11/01/18 09:00 12/01/18 08:59 11/04/18 09:15 Aspirin (Ecotrin) 81 mg DAILY ORAL 11/03/18 09:00 12/03/18 08:59 11/04/18 09:15 Atorvastatin Calcium (Lipitor) 10 mg BEDTIME ORAL 11/02/18 21:00 12/02/18 20:59 11/04/18 21:31 Calcium Acetate (Phoslo) 667 mg BID ORAL 11/01/18 12:00 12/01/18 11:59 11/04/18 17:25 Carvedilol (Coreg) 6.25 mg EVERY 12 HOURS ORAL 11/01/18 09:00 12/01/18 08:59 11/04/18 21:27 Chlorhexidine Gluconate (Glo-Hex 2%) 1 applic DAILY@1999 TOPIC 11/05/18 20:00 12/05/18 19:59 Dextrose (Dextrose 50%) 25 ml Q30M PRN IV Hypoglycemia 10/31/18 22:45 11/30/18 22:44 Dextrose (Dextrose 50%) 50 ml Q30M PRN IV Hypoglycemia 10/31/18 22:45 11/30/18 22:44 Docusate Sodium (Colace) 100 mg TID ORAL 11/02/18 13:00 12/01/18 17:59 11/04/18 17:24 Gabapentin (Neurontin) 300 mg DAILY ORAL 11/02/18 11:00 12/02/18 10:59 11/04/18 09:16 Heparin Sodium/ Sodium Chloride (Heparin 1000 units/500ml Premix) 1,000 unit ONCE PRN IV PICC 11/04/18 19:15 11/05/18 23:59 Insulin Aspart (NovoLOG) BEFORE MEALS AND HS SUBQ 11/01/18 06:30 12/01/18 06:29 11/05/18 06:53 Lidocaine HCl (Xylocaine 1% 30ml) 30 ml ONCE PRN INJ PICC 11/04/18 19:15 11/05/18 23:59 Midodrine (Pro-Amatine) 2.5 mg TID ORAL 11/01/18 18:00 12/01/18 11:59 11/04/18 17:24 Morphine Sulfate (Morphine Sulfate) 2 mg Q4H PRN IM For Pain over scale 7 11/02/18 12:45 11/08/18 22:14 11/05/18 00:08 Nateglinide (Starlix) 120 mg TIAC ORAL 11/01/18 11:30 12/01/18 11:29 11/05/18 06:51 Nicotine (Nicoderm) 1 patch Q24H TDERMAL 11/01/18 22:15 12/01/18 22:14 11/04/18 21:44 Pantoprazole (Protonix) 40 mg BID ORAL 11/01/18 18:00 12/02/18 08:59 11/04/18 17:25 Polyethylene Glycol (Miralax) 17 gm BEDTIME ORAL 11/01/18 21:00 12/01/18 20:59 Sevelamer Carbonate (Renvela) 800 mg THREE TIMES A DAY ORAL 11/01/18 18:00 12/01/18 17:59 11/04/18 17:24 Tacrolimus (Prograf) 2 mg MoWeFr@0000,1200 ORAL 11/02/18 00:00 12/02/18 00:00 11/04/18 11:39 Tacrolimus (Prograf) 2 mg SuTuThSa@0900,2100 ORAL 11/01/18 21:00 12/01/18 20:59 11/03/18 21:03 Vancomycin HCl (Vanco rx to dose) 1 ea DAILY PRN MISC Per rx protocol 10/31/18 22:45 11/30/18 22:44 Vancomycin HCl 1 gm/Dextrose 275 ml @ 183.708 mls/hr ONCE IVPB 11/05/18 15:00 11/05/18 23:59 Vitamin B Complex/ Vit C/Folic Acid (Nephrovite) 1 tab DAILY ORAL 11/01/18 09:00 12/01/18 08:59 11/04/18 09:15 Francois Landis M.D. Nov 05, 2018 15:14
[2018-11-05 15:30] LABS: PHOSPHORUS 7.4 MG/DL (2.5-4.9)
[2018-11-05 16:00] VITALS: BP 137/68
--- NOTE | 2018-11-05 16:44 | Cardiac Electrophysiology PN ---
Assessment/Plan Assessment/Plan 1. Troponin elevation. The patient does not have any chest pain. The patient has already been revascularized with CABG. Likely due to renal failure. On Coreg 6.25 mg bid, aspirin and Lipitor 2. Status post coronary bypass graft 3. Nonsustained ventricular tachycardia. The patient has history of prior myocardial infarction and bypass. EF 55% 4. Congestive heart failure. On hemodialysis, per Dr. Stevens. 5. End-stage renal disease, on hemodialysis. 6. Status post right sided medtronic dual chamber pacemaker. 7. Right foot ulcer. On antibiotic. Further evaluation by Podiatry. 8. History of liver transplant on Prograf Subjective Subjective In SR. Getting HD Objective Last 24 Hour Vital Signs Date Time Temp Pulse Resp B/P (MAP) Pulse Ox O2 Delivery O2 Flow Rate FiO2 11/05/18 12:00 96.9 84 20 123/70 (87) 96 11/05/18 12:00 83 11/05/18 09:00 82 131/59 11/05/18 09:00 Nasal Cannula 2.0 11/05/18 08:00 82 11/05/18 08:00 96.8 82 20 131/59 (83) 95 11/05/18 04:00 96.9 78 18 113/83 (93) 95 11/05/18 04:00 77 11/05/18 00:00 76 11/05/18 00:00 96.8 79 18 139/76 (97) 97 11/04/18 21:27 80 121/52 11/04/18 21:00 Nasal Cannula 2.0 11/04/18 20:00 96.1 80 18 121/52 (75) 98 11/04/18 20:00 74 Intake and Output 11/04/18 11/05/18 18:59 06:59 Intake Total 1200 ml Balance 1200 ml Intake Oral 1200 ml # Voids 2 Laboratory Tests Test 11/05/18 08:40 11/05/18 16:10 White Blood Count 9.6 K/UL (4.8-10.8) Red Blood Count 5.27 M/UL (4.70-6.10) Hemoglobin 13.1 G/DL (14.2-18.0) L Hematocrit 45.7 % (42.0-52.0) Mean Corpuscular Volume 87 FL (80-99) Mean Corpuscular Hemoglobin 24.8 PG (27.0-31.0) L Mean Corpuscular Hemoglobin Concent 28.6 G/DL (32.0-36.0) L Red Cell Distribution Width 18.4 % (11.6-14.8) H Platelet Count 177 K/UL (150-450) Mean Platelet Volume 7.8 FL (6.5-10.1) Neutrophils (%) (Auto) 77.6 % (45.0-75.0) H Lymphocytes (%) (Auto) 13.0 % (20.0-45.0) L Monocytes (%) (Auto) 8.0 % (1.0-10.0) Eosinophils (%) (Auto) 0.1 % (0.0-3.0) Basophils (%) (Auto) 1.3 % (0.0-2.0) Sodium Level 135 MMOL/L (136-145) L Potassium Level 6.3 MMOL/L (3.5-5.1) *H Chloride Level 96 MMOL/L (98-107) L Carbon Dioxide Level 30 MMOL/L (21-32) Anion Gap 10 mmol/L (5-15) Blood Urea Nitrogen 64 mg/dL (7-18) H Creatinine 8.3 MG/DL (0.55-1.30) H Estimat Glomerular Filtration Rate 6.5 mL/min (>60) Glucose Level 127 MG/DL (74-106) H Uric Acid 5.2 MG/DL (2.6-7.2) Calcium Level 8.9 MG/DL (8.5-10.1) Phosphorus Level 7.4 MG/DL (2.5-4.9) H Magnesium Level 2.1 MG/DL (1.8-2.4) Ammonia Pending Objective HEAD AND NECK: No JVD. LUNGS: Coarse rhonchi. CARDIOVASCULAR: Regular S1 and S2 with no gallop. Sternotomy is intact and pacemaker in the right chest. ABDOMEN: Soft. EXTREMITIES: 1+ pitting edema Shivam Sharpe MD Nov 05, 2018 16:44
[2018-11-05] MEDS ORDERED: Isovue-370 150ml vial INJ PRN (18:30)
--- NOTE | 2018-11-05 18:32 | Consultation ---
Consult Note Assessment/Plan consult dict ordered stat CT chest for possible SVC syndrome disc w Rodney Morataya and Saroj Mueller MD Nov 05, 2018 18:32
[2018-11-05 20:00] VITALS: BP 110/70
[2018-11-05] MEDS ORDERED: Dyna-Hex 2% Top Sol 2oz TOPIC SCH (20:00)
--- NOTE | 2018-11-05 21:30 | Consultation ---
DATE OF CONSULTATION: INFECTIOUS DISEASE CONSULTATION REFERRING PHYSICIAN: Darius Carter M.D. REASON FOR CONSULTATION: Right foot heel wound ulcer with MRSA, possible deep infection with underlying osteomyelitis . Recommendation for antibiotics treatment. HISTORY OF PRESENT ILLNESS: Mr. Kaye Colon is a 68-year-old male with past medical history of coronary artery disease status post coronary artery bypass graft and pacemaker placement, valve surgery, and fistula creation for dialysis, myocardial infarction in 2018, diabetes, end-stage liver disease, status post liver transplant, end-stage kidney disease status post dialysis Friday, Friday, Friday. He presented to [facility] with increased pain in his right heel. The patient had home healthcare nurse visiting him taking care of the wound along with his physician. He does not remember taking x-ray in that area to look for the bone whether it was infected or not. The patient does have peripheral neuropathy and he has been taking Percocet for his pain which has not been controlling his pain really well. He had fever and chills as per the report. Denied any calf pain. He rated his pain 10/10 aching pressure not radiating and worse with any touching of the area. There was no drainage or pus or bleeding coming out of the right heel wound. The patient had a new access in the right upper arm, which he has been complaining about pain and numbness in that area. Denied any chest pain, orthopnea, or dyspnea. No diarrhea. No recent travel or sick contact. The patient was admitted to the hospital. Was continued on his hemodialysis as per renal. Podiatry consultation was obtained to evaluate his right heel and the plan was to get MRI on his right heel, but that unfortunately could not be done due to his pacemaker, but he had a CT scan of the right heel, which did not show any deep infection or osteomyelitis. The patient had wound culture from the right heel the result of which grew methicillin resistant Staphylococcus aureus so he was started on vancomycin and Infectious Disease consultation was requested for antibiotics treatment and further management. REVIEW OF SYSTEMS: A 14-point of system reviewed were all negative apart from the one I mentioned above in my History and Physical. PAST MEDICAL HISTORY: Significant for coronary artery disease, myocardial infarction in 2018 status post coronary artery bypass graft, status post pacemaker, diabetes, end-stage liver disease, status post liver transplant, end-stage renal disease status post dialysis. PAST SURGICAL HISTORY: He had coronary artery bypass graft, pacemaker placement, valve surgery, and fistula creation on both arm for dialysis. SOCIAL HISTORY: Patient is currently smoking. Lives at home. Has home health care with visiting nurse and supervisor hardboard no drugs or alcohol. ALLERGIES: He is allergic to cephalexin, sulfa, and trimethoprim. MEDICATIONS: The patient has been getting vancomycin with his hemodialysis for the rest of his medications, please refer to MAR. LABORATORY: Showed white count of 8.3, hemoglobin of 13, platelet count of 173, BUN of 48, creatinine of 7, chloride of 97. Microbiology wound culture of the right heel grew methicillin resistant Staphylococcus aureus. IMAGING: Right foot x-ray showed no acute finding. Right foot CT scan showed no evidence of acute osteomyelitis or abscess. PHYSICAL EXAMINATION: VITAL SIGNS: Temperature 97.6, pulse 75, respiration 18, blood pressure 118/64, saturation 99% on 2 liter nasal cannula. GENERAL: Middle-aged male, lying in bed, awake, alert, oriented, not in acute distress. HEENT: Normocephalic and atraumatic. Pupils are reactive to light equal. Moist oral mucosa. No exudate or thrush. NECK: Supple. No lymphadenopathy. CARDIOVASCULAR: Regular rate and rhythm. No murmur or gallop. LUNGS: Clear bilaterally and diminished breathing sounds at the bases. No wheezing or rhonchi. ABDOMEN: Soft, obese, nontender, and nondistended. Normal bowel sounds. No hepatosplenomegaly or ascites. EXTREMITY: No edema or cyanosis. Right heel chronic wound with dry eschar base no drainage or pus. No bleeding. ASSESSMENT AND RECOMMENDATION: 1. Right foot ulcer with necrosis and infection due to MRSA. The patient may need surgical debridement pending vascular clearance. We will order bone scan to rule out osteomyelitis of the heel since MRI could not be done due to pacemaker. Podiatry is following continue vancomycin through his hemodialysis for now. Pending bone scan. 2. Cellulitis of the abdominal wall improving. The patient already on vancomycin. 3. Diabetes. Recommend tight glycemic control to keep blood glucose between 100 to 140. 4. Congestive heart failure on hemodialysis. Monitor daily weight. Cardiology follow up. 5. Status post liver transplant. Continue transplant medications as before. Recommend transfer to higher level of care such as [facility] [place] [facility] to be monitored by transplant team. Thank you for the consultation. Please feel free to call with any question. Francois Landis M.D. DR: Tone JOB#: [id number] CC: MARIA VICTORIA
[2018-11-06] VITALS (29 sets, daily range): BP systolic 106–166; BP diastolic 33–111
[2018-11-06] MEDS ORDERED: Morphine Sulfate 2mg/ml Inj(IV/IM USE ONLY) IM PRN (00:45)
[2018-11-06] MEDS ORDERED: HYDROcodone/Acetamin 5/325 tab ORAL PRN (01:15)
--- NOTE | 2018-11-06 04:36 | Consultation ---
DATE OF CONSULTATION: 11/05/2018 PULMONARY CONSULTATION CHIEF COMPLAINT: Short of breath. HISTORY OF PRESENT ILLNESS: The patient is seen today at the request of Dr. Carter because of shortness of breath. In fact, I interviewed the patient at the bedside. He complains that he has difficulty speaking and points to his throat. He does not have a sore throat and does not complain of shortness of breath. According to the nurse, he was speaking normally up until last night, but today he has only been able to utter guttural sounds. The nurse notes that his face and neck have been swollen compared to yesterday. The patient was originally admitted for ulcer on the right foot and has multiple intercurrent medical problems as listed below. PAST MEDICAL HISTORY: Coronary artery bypass surgery, hypertension, pacemaker, end-stage renal disease, on dialysis (he was dialyzed this morning), liver transplant, multiple AV fistula placements in the upper extremities, diabetes, sepsis due to line infection, and past pericardial effusion. MEDICATIONS: Reviewed. ALLERGIES: Cephalexin, sulfamethoxazole, and trimethoprim. REVIEW OF SYSTEMS: Cannot be obtained. PHYSICAL EXAMINATION: GENERAL: The patient is alert and responds, but does not speak uttering only guttural sounds. HEENT: The head and neck appear swollen. CHEST: Fairly clear. There are dilated veins on the upper chest and neck. CARDIAC: Rhythm is regular. ABDOMEN: Soft and nontender. EXTREMITIES: No edema. IMAGING: Chest x-ray several days ago was negative. IMPRESSION: 1. Probable SVC syndrome. 2. End-stage renal disease, on dialysis, status post multiple upper extremity vascular procedures. 3. Coronary artery bypass surgery. 4. Diabetes. PLAN: 1. The patient will have a stat CT angio of the chest. 2. I have discussed his care today with his primary physician, donor relations associate, and cash person. 3. He may require urgent transfer to a higher level of care if clot is identified. Saroj Mendoza M.D. DR: NARAYAN JOB#: [id number] CC: Saroj Mendoza M.D.; Fax#: [phone] ERICK DU M.D. ; FAX#: [phone] Von Rico M.D.; FAX#: [phone]
--- NOTE | 2018-11-06 04:36 | Progress Note ---
DATE: 11/05/2018 SUBJECTIVE: This is an elderly male, sounds lethargic and nonverbal since morning, he opens his eyes, go back to sleep. PHYSICAL EXAMINATION: VITAL SIGNS: Blood pressure is 123/70, pulse 83, respirations 20, and temperature 96.9. HEENT: Skin is slightly diaphoretic. Eyes are closed. NECK: Supple. CHEST: Bilateral few crackles. CARDIOVASCULAR: Regular rhythm. ABDOMEN: Soft. EXTREMITIES: CCE. NEUROLOGICAL: Generalized weakness. LABORATORY EXAMINATION: White counts 9.6, hemoglobin 13, hematocrit 45, platelets are 177. Chemistry panel, potassium 6.3, BUN 64, creatinine 8.3. Troponin 0.079. ASSESSMENT: 1. Altered mental status. We will do ABG, hold all the narcotics and Ativan. Continue current medical treatment. 2. Continue aspiration precautions. 3. Continue vancomycin. 4. Continue NPO. 5. Discontinue morphine. 6. The patient was not given any medicine today. Jamari Carter M.D. DR: Veronica JOB#: [id number] CC:
[2018-11-06 06:15] LABS: BASOPHILS % (AUTO) 1.2 % (0.0-2.0); HEMATOCRIT 44.6 % (42.0-52.0); HEMOGLOBIN 13.2 G/DL (14.2-18.0); LYMPHOCYTES % (AUTO) 18.3 % (20.0-45.0); MEAN CORPUSCULAR VOLUME 86 FL (80-99); MONOCYTES % (AUTO) 9.3 % (1.0-10.0); NEUTROPHILS % (AUTO) 71.2 % (45.0-75.0); PLATELET COUNT 177 K/UL (150-450); RED BLOOD COUNT 5.15 M/UL (4.70-6.10); RED CELL DISTRIBUTION WIDTH 18.8 % (11.6-14.8); WHITE BLOOD COUNT 7.5 K/UL (4.8-10.8)
[2018-11-06 06:30] LABS: ALANINE AMINOTRANSFERASE 10 U/L (12-78); ALBUMIN/GLOBULIN RATIO 0.7 (1.0-2.7); ALKALINE PHOSPHATASE 90 U/L (46-116); ANION GAP 7 mmol/L (5-15); ASPARTATE AMINO TRANSFERASE 10 U/L (15-37); BILIRUBIN,TOTAL 0.3 MG/DL (0.2-1.0); BLOOD UREA NITROGEN 52 mg/dL (7-18); CALCIUM 9.4 MG/DL (8.5-10.1); CARBON DIOXIDE 33 MMOL/L (21-32); CHLORIDE 97 MMOL/L (98-107); CREATININE 7.5 MG/DL (0.55-1.30); POTASSIUM 5.2 MMOL/L (3.5-5.1); SODIUM 137 MMOL/L (136-145)
[2018-11-06] MEDS: NovoLOG Insulin Flexpen SUBQ SCH ×4 (06:30→20:48)
[2018-11-06] MEDS: Aspirin EC 81mg tab ORAL SCH (08:25)
[2018-11-06] MEDS: Carvedilol 6.25mg Tab ORAL SCH ×2 (08:26→20:47)
[2018-11-06] MEDS ORDERED: Docusate 100mg cap ORAL SCH (09:00)
[2018-11-06] MEDS ORDERED: Allopurinol 100mg Tab ORAL SCH (09:00)
[2018-11-06] MEDS ORDERED: Calcium Acetate 667mg Tab ORAL SCH (09:00)
[2018-11-06] MEDS ORDERED: Sodium Polystyrene Sulfonate 15gm Powder ORAL SCH ×2 (09:00)
[2018-11-06] MEDS ORDERED: Nephrovite tab (Rena-Vite) ORAL SCH (09:00)
[2018-11-06] MEDS ORDERED: DiphenhydrAMINE 50mg/ml Inj IVP SCH (09:30)
--- NOTE | 2018-11-06 12:05 | Pulmonology Progress Note ---
Assessment/Plan Assessment/Plan 1. No SVC syndrome on CTA 2. End-stage renal disease, on dialysis, status post multiple upper extremity vascular procedures. 3. Coronary artery bypass surgery. 4. Diabetes. 5. Dysphonia, tongue swelling 6. Resp failure, hypercapneic; now in ICU on BiPAP PLAN: Stat CT angio of the chest did not show SVC obstruction Atelectasis and effusions noted ABG with resp acidosis - transferred to ICU and placed on BiPAP note tongue swelling - called ENT disc w Dr Stevens - will dialyze again today to remove fluid disc w Dr Carter and Annemarie Subjective ROS Limited/Unobtainable: Yes Allergies: Coded Allergies: CEPHALEXIN (Unverified Allergy, Unknown, 02/24/14) SULFAMETHOXAZOLE (Unverified Allergy, Unknown, 02/24/14) TRIMETHOPRIM (Unverified Allergy, Unknown, 02/24/14) Objective Last 24 Hour Vital Signs Date Time Temp Pulse Resp B/P (MAP) Pulse Ox O2 Delivery O2 Flow Rate FiO2 11/06/18 11:17 83 19 100 Facial 40 11/06/18 11:00 84 18 108/43 (64) 100 11/06/18 10:00 86 18 131/49 (76) 97 11/06/18 09:08 86 22 98 Facial 40 11/06/18 09:00 74 22 156/74 (101) 98 11/06/18 08:26 85 109/60 11/06/18 08:00 Bi-pap 11/06/18 08:00 84 11/06/18 07:02 87 20 99 Facial 40 11/06/18 07:00 98.8 86 18 109/78 (88) 97 11/06/18 06:00 74 22 156/74 (101) 98 11/06/18 05:30 98.8 83 18 139/74 (95) 97 11/06/18 05:00 83 18 149/65 (93) 98 11/06/18 04:30 84 20 155/78 (103) 98 11/06/18 04:00 84 25 122/51 (74) 98 11/06/18 04:00 85 11/06/18 04:00 Bi-pap 11/06/18 03:30 85 21 113/57 (75) 98 11/06/18 03:00 82 10 123/57 (79) 94 11/06/18 02:30 85 19 141/35 (70) 89 11/06/18 02:00 84 13 150/88 (108) 98 11/06/18 01:30 84 21 137/45 (75) 98 11/06/18 01:00 85 15 166/40 (82) 98 11/06/18 00:00 98.1 82 15 141/55 (83) 98 11/06/18 00:00 82 11/05/18 21:00 Nasal Cannula 2.0 11/05/18 20:00 97.7 85 20 110/70 (83) 95 11/05/18 16:00 83 11/05/18 16:00 97.5 84 19 137/68 (91) 93 Intake and Output 11/05/18 11/06/18 19:00 07:00 Intake Total 367.416 ml 0 ml Output Total 0 ml Balance 367.416 ml 0 ml Intake Oral 0 ml IV Total 367.416 ml Output Urine Total 0 ml General Appearance: no acute distress HEENT: atraumatic, other - tongue swollen Respiratory/Chest: decreased breath sounds Cardiovascular: normal rate Abdomen: soft, non tender Laboratory Tests 11/05/18 16:10: Ammonia 36H 11/05/18 21:12: Arterial Blood pH 7.263L, Arterial Blood Partial Pressure CO2 68.9*H, Arterial Blood Partial Pressure O2 95.7, Arterial Blood HCO3 30.4H, Arterial Blood Oxygen Saturation 96.2, Arterial Blood Base Excess 1.5, Mino Test Positive 11/05/18 23:21: Arterial Blood pH 7.270L, Arterial Blood Partial Pressure CO2 59.7*H, Arterial Blood Partial Pressure O2 82.5, Arterial Blood HCO3 26.8H, Arterial Blood Oxygen Saturation 94.7L, Arterial Blood Base Excess -1.2, Mino Test Positive 11/06/18 05:45: White Blood Count 7.5, Red Blood Count 5.15, Hemoglobin 13.2L, Hematocrit 44.6, Mean Corpuscular Volume 86, Mean Corpuscular Hemoglobin 25.6L, Mean Corpuscular Hemoglobin Concent 29.6L, Red Cell Distribution Width 18.8H, Platelet Count 177 , Mean Platelet Volume 7.4, Neutrophils (%) (Auto) 71.2, Lymphocytes (%) (Auto) 18.3L, Monocytes (%) (Auto) 9.3, Eosinophils (%) (Auto) 0.0, Basophils (%) (Auto ) 1.2, Sodium Level 137, Potassium Level 5.2H, Chloride Level 97L, Carbon Dioxide Level 33H, Anion Gap 7, Blood Urea Nitrogen 52H, Creatinine 7.5H, Estimat Glomerular Filtration Rate 7.3, Glucose Level 65L, Calcium Level 9.4, Phosphorus Level 7.0H, Magnesium Level 2.1, Total Bilirubin 0.3, Aspartate Amino Transf (AST/SGOT) 10L, Alanine Aminotransferase (ALT/SGPT) 10L, Alkaline Phosphatase 90, Total Protein 7.3, Albumin 3.0L, Globulin 4.3, Albumin/Globulin Ratio 0.7L, Random Vancomycin Level 5.0 11/06/18 08:40: Arterial Blood pH 7.293L, Arterial Blood Partial Pressure CO2 72.1*H, Arterial Blood Partial Pressure O2 87.8, Arterial Blood HCO3 34.1H, Arterial Blood Oxygen Saturation 94.9L, Arterial Blood Base Excess 5.2H, Mino Test Positive Current Medications Medications (Trade) Dose Ordered Sig/Aleks Route PRN Reason Start Time Stop Time Status Last Admin Dose Admin Acetaminophen (Tylenol) 650 mg Q4H PRN ORAL Mild Pain/Temp > 100.5 11/05/18 22:45 11/30/18 22:44 Acetaminophen/ Hydrocodone Bitart (Butler 5/325) 1 tab Q4H PRN ORAL Moderate Pain (Pain Scale 4-6) 11/06/18 01:15 11/08/18 05:14 Allopurinol (Zyloprim) 100 mg DAILY ORAL 11/06/18 09:00 12/01/18 08:59 11/06/18 08:26 Aspirin (Ecotrin) 81 mg DAILY ORAL 11/06/18 09:00 12/03/18 08:59 11/06/18 08:25 Atorvastatin Calcium (Lipitor) 10 mg BEDTIME ORAL 11/06/18 21:00 12/02/18 20:59 Calcium Acetate (Phoslo) 667 mg BID ORAL 11/06/18 09:00 12/01/18 11:59 Carvedilol (Coreg) 6.25 mg EVERY 12 HOURS ORAL 11/06/18 09:00 12/01/18 08:59 11/06/18 08:26 Chlorhexidine Gluconate (Glo-Hex 2%) 1 applic DAILY@2000 TOPIC 11/06/18 20:00 12/05/18 19:59 Dextrose (Dextrose 50%) 25 ml Q30M PRN IV Hypoglycemia 11/05/18 22:15 11/30/18 22:44 11/06/18 06:30 Dextrose (Dextrose 50%) 50 ml Q30M PRN IV Hypoglycemia 11/05/18 22:15 11/30/18 22:44 Docusate Sodium (Colace) 100 mg TID ORAL 11/06/18 09:00 12/01/18 17:59 11/06/18 08:26 Gabapentin (Neurontin) 300 mg DAILY ORAL 11/06/18 09:00 12/02/18 10:59 11/06/18 08:25 Insulin Aspart (NovoLOG) BEFORE MEALS AND HS SUBQ 11/06/18 06:30 12/01/18 06:29 Iopamidol (Isovue-370 150ml) 150 ml NOW PRN INJ Radiology Procedure 11/06/18 18:30 11/07/18 18:27 Midodrine (Pro-Amatine) 2.5 mg TID ORAL 11/06/18 09:00 12/01/18 11:59 11/06/18 08:26 Morphine Sulfate (Morphine Sulfate) 2 mg Q4H PRN IM For Pain over scale 7 11/06/18 00:45 11/08/18 22:14 Nateglinide (Starlix) 120 mg TIAC ORAL 11/06/18 06:30 12/01/18 11:29 Nicotine (Nicoderm) 1 patch Q24H TDERMAL 11/05/18 22:15 12/01/18 22:14 Pantoprazole (Protonix) 40 mg BID ORAL 11/06/18 09:00 12/02/18 08:59 11/06/18 08:25 Polyethylene Glycol (Miralax) 17 gm BEDTIME ORAL 11/06/18 21:00 12/01/18 20:59 Sevelamer Carbonate (Renvela) 800 mg THREE TIMES A DAY ORAL 11/06/18 09:00 12/01/18 17:59 11/06/18 08:26 Sodium Polystyrene Sulfonate (Kayexalate) 30 gm DAILY ORAL 11/06/18 09:00 12/06/18 08:59 11/06/18 08:24 Tacrolimus (Prograf) 2 mg MoWeFr@0000,1200 ORAL 11/06/18 00:00 12/02/18 00:00 Tacrolimus (Prograf) 2 mg SuTuThSa@0900,2100 ORAL 11/07/18 09:00 12/01/18 20:59 Vancomycin HCl (Vanco rx to dose) 1 ea DAILY PRN MISC Per rx protocol 11/06/18 09:00 11/30/18 22:44 Vancomycin HCl 1 gm/Dextrose 275 ml @ 183.708 mls/hr ONCE IVPB 11/06/18 16:00 11/06/18 23:59 Vitamin B Complex/ Vit C/Folic Acid (Nephrovite) 1 tab DAILY ORAL 11/06/18 09:00 12/01/18 08:59 11/06/18 08:25 Saroj Mendoza MD Nov 06, 2018 12:05
--- NOTE | 2018-11-06 12:31 | Podiatric Progress Note ---
Assessment/Plan Patient Gregg Restrepo is a 68 year old male who was admitted on Oct 31, 2018 at 19:13 with Problems: (1) DM (diabetes mellitus) (2) Foot ulcer (3) ESRD (end stage renal disease) on dialysis (4) HTN (hypertension) (5) Tachycardia (6) Sepsis (7) CHF (congestive heart failure) (8) Pericardial effusion Assessment/Plan Rx Santyl to be applied to the R heel Bone scan is pending. no surgical debridement is recommended at this time. possible after the patient is stabilized Subjective Reason for consult Patient seen in ICU f/u R heel ulcer Allergies: Coded Allergies: CEPHALEXIN (Unverified Allergy, Unknown, 02/24/14) SULFAMETHOXAZOLE (Unverified Allergy, Unknown, 02/24/14) TRIMETHOPRIM (Unverified Allergy, Unknown, 02/24/14) Subjective Patient seen in ICU f/u R heel ulcer. patient had bone scan yesterday. Objective Exam Last 24 Hour Vital Signs Date Time Temp Pulse Resp B/P (MAP) Pulse Ox O2 Delivery O2 Flow Rate FiO2 11/06/18 11:17 83 19 100 Facial 40 11/06/18 11:00 84 18 108/43 (64) 100 11/06/18 10:00 86 18 131/49 (76) 97 11/06/18 09:08 86 22 98 Facial 40 11/06/18 09:00 74 22 156/74 (101) 98 11/06/18 08:26 85 109/60 11/06/18 08:00 Bi-pap 11/06/18 08:00 84 11/06/18 07:02 87 20 99 Facial 40 11/06/18 07:00 98.8 86 18 109/78 (88) 97 11/06/18 06:00 74 22 156/74 (101) 98 11/06/18 05:30 98.8 83 18 139/74 (95) 97 11/06/18 05:00 83 18 149/65 (93) 98 11/06/18 04:30 84 20 155/78 (103) 98 11/06/18 04:00 84 25 122/51 (74) 98 11/06/18 04:00 85 11/06/18 04:00 Bi-pap 11/06/18 03:30 85 21 113/57 (75) 98 11/06/18 03:00 82 10 123/57 (79) 94 11/06/18 02:30 85 19 141/35 (70) 89 11/06/18 02:00 84 13 150/88 (108) 98 11/06/18 01:30 84 21 137/45 (75) 98 11/06/18 01:00 85 15 166/40 (82) 98 11/06/18 00:00 98.1 82 15 141/55 (83) 98 11/06/18 00:00 82 11/05/18 21:00 Nasal Cannula 2.0 11/05/18 20:00 97.7 85 20 110/70 (83) 95 11/05/18 16:00 83 11/05/18 16:00 97.5 84 19 137/68 (91) 93 Laboratory Tests Test 11/05/18 16:10 11/05/18 21:12 11/05/18 23:21 11/06/18 05:45 Ammonia 36 umol/L (11-32) H Arterial Blood pH 7.263 (7.350-7.450) 7.270 (7.350-7.450) Arterial Blood Partial Pressure CO2 68.9 mmHg (35.0-45.0) *H 59.7 mmHg (35.0-45.0) *H Arterial Blood Partial Pressure O2 95.7 mmHg (75.0-100.0) 82.5 mmHg (75.0-100.0) Arterial Blood HCO3 30.4 mmol/L (22.0-26.0) H 26.8 mmol/L (22.0-26.0) H Arterial Blood Oxygen Saturation 96.2 % (95-100) 94.7 % (95-100) L Arterial Blood Base Excess 1.5 (-2-2) -1.2 (-2-2) Mino Test Positive Positive White Blood Count 7.5 K/UL (4.8-10.8) Red Blood Count 5.15 M/UL (4.70-6.10) Hemoglobin 13.2 G/DL (14.2-18.0) L Hematocrit 44.6 % (42.0-52.0) Mean Corpuscular Volume 86 FL (80-99) Mean Corpuscular Hemoglobin 25.6 PG (27.0-31.0) L Mean Corpuscular Hemoglobin Concent 29.6 G/DL (32.0-36.0) L Red Cell Distribution Width 18.8 % (11.6-14.8) H Platelet Count 177 K/UL (150-450) Mean Platelet Volume 7.4 FL (6.5-10.1) Neutrophils (%) (Auto) 71.2 % (45.0-75.0) Lymphocytes (%) (Auto) 18.3 % (20.0-45.0) L Monocytes (%) (Auto) 9.3 % (1.0-10.0) Eosinophils (%) (Auto) 0.0 % (0.0-3.0) Basophils (%) (Auto) 1.2 % (0.0-2.0) Sodium Level 137 MMOL/L (136-145) Potassium Level 5.2 MMOL/L (3.5-5.1) H Chloride Level 97 MMOL/L (98-107) L Carbon Dioxide Level 33 MMOL/L (21-32) H Anion Gap 7 mmol/L (5-15) Blood Urea Nitrogen 52 mg/dL (7-18) H Creatinine 7.5 MG/DL (0.55-1.30) H Estimat Glomerular Filtration Rate 7.3 mL/min (>60) Glucose Level 65 MG/DL (74-106) L Calcium Level 9.4 MG/DL (8.5-10.1) Phosphorus Level 7.0 MG/DL (2.5-4.9) H Magnesium Level 2.1 MG/DL (1.8-2.4) Total Bilirubin 0.3 MG/DL (0.2-1.0) Aspartate Amino Transf (AST/SGOT) 10 U/L (15-37) L Alanine Aminotransferase (ALT/SGPT) 10 U/L (12-78) L Alkaline Phosphatase 90 U/L (46-116) Total Protein 7.3 G/DL (6.4-8.2) Albumin 3.0 G/DL (3.4-5.0) L Globulin 4.3 g/dL Albumin/Globulin Ratio 0.7 (1.0-2.7) L Random Vancomycin Level 5.0 ug/mL Test 11/06/18 08:40 Arterial Blood pH 7.293 (7.350-7.450) Arterial Blood Partial Pressure CO2 72.1 mmHg (35.0-45.0) *H Arterial Blood Partial Pressure O2 87.8 mmHg (75.0-100.0) Arterial Blood HCO3 34.1 mmol/L (22.0-26.0) H Arterial Blood Oxygen Saturation 94.9 % (95-100) L Arterial Blood Base Excess 5.2 (-2-2) H Mino Test Positive Microbiology Date/Time Source Procedure Growth Status 10/31/18 20:39 Wound Gram Stain - Final Complete 10/31/18 20:39 Wound Culture - Final Staphylococcus Aureus - Mrsa Complete 10/31/18 21:00 Nasal Nares MRSA Culture - Final Staphylococcus Aureus - Mrsa Complete 10/31/18 21:00 Rectum VRE Culture - Final NO VANCOMYCIN RESISTANT ENTEROCOCCUS ... Complete 10/31/18 21:00 Rectum - Final NO CARBAPENEM-RESISTANT ENTEROBACTERI... Complete Dermatological Dermatological Narrative R heel black eschar loosened not hard to palpation. no drainage or discharge noted. no pus, no cellulitis. stable. Dhruv Huizar DPM Nov 06, 2018 12:31
--- NOTE | 2018-11-06 12:38 | Diagnostic Imaging Report ---
Indication: Right heel wound with eschar Technique: IV administration mCi 99 M technetium MDP. Flow, blood pool, and static images were obtained over the feet and ankles Comparison: Foot CT dated 11/02/2018, foot radiograph dated 10/31/2018 Findings: Flow images demonstrate equivocal very slight hyperemia of the right ankle compared to the left. Blood pool images are unremarkable. Static images demonstrate increased uptake in the bilateral ankles and hindfeet which is fairly symmetric. No calcaneal increased uptake demonstrated. Impression: Negative for evidence of osteomyelitis
--- NOTE | 2018-11-06 12:42 | General Progress Note ---
Assessment/Plan Problem List: (1) Transplant ICD Codes: Z94.9 - Transplanted organ and tissue status, unspecified SNOMED: 526562835 (2) HTN (hypertension) ICD Codes: I10 - Essential (primary) hypertension SNOMED: 55558548 (3) Pacemaker ICD Codes: Z95.0 - Presence of cardiac pacemaker SNOMED: 434547197 (4) CHF (congestive heart failure) ICD Codes: I50.9 - Heart failure, unspecified SNOMED: 05518566 (5) DM (diabetes mellitus) ICD Codes: E11.9 - Type 2 diabetes mellitus without complications SNOMED: 17331865 (6) Foot ulcer ICD Codes: L97.509 - Non-pressure chronic ulcer of other part of unspecified foot with unspecified severity SNOMED: 37197121 Qualifiers: Qualified Codes: L97.511 - Non-pressure chronic ulcer of other part of right foot limited to breakdown of skin (7) ESRD (end stage renal disease) on dialysis ICD Codes: N18.6 - End stage renal disease; Z99.2 - Dependence on renal dialysis SNOMED: 870020120 Assessment/Plan on prograft no elevated lfts on BIPAP in ICU pending HD will fu Subjective ROS Limited/Unobtainable: No Allergies: Coded Allergies: CEPHALEXIN (Unverified Allergy, Unknown, 02/24/14) SULFAMETHOXAZOLE (Unverified Allergy, Unknown, 02/24/14) TRIMETHOPRIM (Unverified Allergy, Unknown, 02/24/14) Objective Last 24 Hour Vital Signs Date Time Temp Pulse Resp B/P (MAP) Pulse Ox O2 Delivery O2 Flow Rate FiO2 11/06/18 11:17 83 19 100 Facial 40 11/06/18 11:00 84 18 108/43 (64) 100 11/06/18 10:00 86 18 131/49 (76) 97 11/06/18 09:08 86 22 98 Facial 40 11/06/18 09:00 74 22 156/74 (101) 98 11/06/18 08:26 85 109/60 11/06/18 08:00 Bi-pap 11/06/18 08:00 84 11/06/18 07:02 87 20 99 Facial 40 11/06/18 07:00 98.8 86 18 109/78 (88) 97 11/06/18 06:00 74 22 156/74 (101) 98 11/06/18 05:30 98.8 83 18 139/74 (95) 97 11/06/18 05:00 83 18 149/65 (93) 98 11/06/18 04:30 84 20 155/78 (103) 98 11/06/18 04:00 84 25 122/51 (74) 98 11/06/18 04:00 85 11/06/18 04:00 Bi-pap 11/06/18 03:30 85 21 113/57 (75) 98 11/06/18 03:00 82 10 123/57 (79) 94 11/06/18 02:30 85 19 141/35 (70) 89 11/06/18 02:00 84 13 150/88 (108) 98 11/06/18 01:30 84 21 137/45 (75) 98 11/06/18 01:00 85 15 166/40 (82) 98 11/06/18 00:00 98.1 82 15 141/55 (83) 98 11/06/18 00:00 82 11/05/18 21:00 Nasal Cannula 2.0 11/05/18 20:00 97.7 85 20 110/70 (83) 95 11/05/18 16:00 83 11/05/18 16:00 97.5 84 19 137/68 (91) 93 Intake and Output 11/05/18 11/06/18 19:00 07:00 Intake Total 367.416 ml 0 ml Output Total 0 ml Balance 367.416 ml 0 ml Intake Oral 0 ml IV Total 367.416 ml Output Urine Total 0 ml Laboratory Tests 11/05/18 16:10: Ammonia 36H 11/05/18 21:12: Arterial Blood pH 7.263L, Arterial Blood Partial Pressure CO2 68.9*H, Arterial Blood Partial Pressure O2 95.7, Arterial Blood HCO3 30.4H, Arterial Blood Oxygen Saturation 96.2, Arterial Blood Base Excess 1.5, Mino Test Positive 11/05/18 23:21: Arterial Blood pH 7.270L, Arterial Blood Partial Pressure CO2 59.7*H, Arterial Blood Partial Pressure O2 82.5, Arterial Blood HCO3 26.8H, Arterial Blood Oxygen Saturation 94.7L, Arterial Blood Base Excess -1.2, Mino Test Positive 11/06/18 05:45: White Blood Count 7.5, Red Blood Count 5.15, Hemoglobin 13.2L, Hematocrit 44.6, Mean Corpuscular Volume 86, Mean Corpuscular Hemoglobin 25.6L, Mean Corpuscular Hemoglobin Concent 29.6L, Red Cell Distribution Width 18.8H, Platelet Count 177 , Mean Platelet Volume 7.4, Neutrophils (%) (Auto) 71.2, Lymphocytes (%) (Auto) 18.3L, Monocytes (%) (Auto) 9.3, Eosinophils (%) (Auto) 0.0, Basophils (%) (Auto ) 1.2, Sodium Level 137, Potassium Level 5.2H, Chloride Level 97L, Carbon Dioxide Level 33H, Anion Gap 7, Blood Urea Nitrogen 52H, Creatinine 7.5H, Estimat Glomerular Filtration Rate 7.3, Glucose Level 65L, Calcium Level 9.4, Phosphorus Level 7.0H, Magnesium Level 2.1, Total Bilirubin 0.3, Aspartate Amino Transf (AST/SGOT) 10L, Alanine Aminotransferase (ALT/SGPT) 10L, Alkaline Phosphatase 90, Total Protein 7.3, Albumin 3.0L, Globulin 4.3, Albumin/Globulin Ratio 0.7L, Random Vancomycin Level 5.0 11/06/18 08:40: Arterial Blood pH 7.293L, Arterial Blood Partial Pressure CO2 72.1*H, Arterial Blood Partial Pressure O2 87.8, Arterial Blood HCO3 34.1H, Arterial Blood Oxygen Saturation 94.9L, Arterial Blood Base Excess 5.2H, Mino Test Positive Height (Feet): 5 Height (Inches): 10.00 Weight (Pounds): 206 General Appearance: moderate distress EENT: normal ENT inspection Neck: supple Cardiovascular: tachycardia Respiratory/Chest: decreased breath sounds Abdomen: normal bowel sounds, non tender, soft Extremities: non-tender Jorge Escalera MD Nov 06, 2018 12:42
--- NOTE | 2018-11-06 13:10 | Nephrology Progress Note ---
Assessment/Plan Problem List: (1) ESRD (end stage renal disease) on dialysis (2) Foot ulcer (3) CHF (congestive heart failure) (4) Pacemaker (5) Acute respiratory failure Assessment: with Co2 retention Assessment ESRD with high K and SOB Foot ulcer, likely infected High Troponin likely NSTMI Pacer , Pleural effusion s/p CABGS s/p Liver transplant Plan Plan; discussed with Dr Reji MCKNIGHT unnecessary pills as patient NPO One dose of solumedrol continue BIPAP - retains CO2 check ABG in Am repeat dialysis today as patient received Contrast with CT I adjust Vanco dosages per cardio and ID try Kayexelate as needed Poor Prognosis Podiatry and Vascular surgical eval Subjective ROS Limited/Unobtainable: Yes Objective Objective Last 24 Hour Vital Signs Date Time Temp Pulse Resp B/P (MAP) Pulse Ox O2 Delivery O2 Flow Rate FiO2 11/06/18 12:51 88 19 98 Facial 40 11/06/18 11:17 83 19 100 Facial 40 11/06/18 11:00 84 18 108/43 (64) 100 11/06/18 10:00 86 18 131/49 (76) 97 11/06/18 09:08 86 22 98 Facial 40 11/06/18 09:00 74 22 156/74 (101) 98 11/06/18 08:26 85 109/60 11/06/18 08:00 Bi-pap 11/06/18 08:00 84 11/06/18 07:02 87 20 99 Facial 40 11/06/18 07:00 98.8 86 18 109/78 (88) 97 11/06/18 06:00 74 22 156/74 (101) 98 11/06/18 05:30 98.8 83 18 139/74 (95) 97 11/06/18 05:00 83 18 149/65 (93) 98 11/06/18 04:30 84 20 155/78 (103) 98 11/06/18 04:00 84 25 122/51 (74) 98 11/06/18 04:00 85 11/06/18 04:00 Bi-pap 11/06/18 03:30 85 21 113/57 (75) 98 11/06/18 03:00 82 10 123/57 (79) 94 11/06/18 02:30 85 19 141/35 (70) 89 11/06/18 02:00 84 13 150/88 (108) 98 11/06/18 01:30 84 21 137/45 (75) 98 11/06/18 01:00 85 15 166/40 (82) 98 11/06/18 00:00 98.1 82 15 141/55 (83) 98 11/06/18 00:00 82 11/05/18 21:00 Nasal Cannula 2.0 11/05/18 20:00 97.7 85 20 110/70 (83) 95 11/05/18 16:00 83 11/05/18 16:00 97.5 84 19 137/68 (91) 93 Intake and Output 11/05/18 11/06/18 19:00 07:00 Intake Total 367.416 ml 0 ml Output Total 0 ml Balance 367.416 ml 0 ml Intake Oral 0 ml IV Total 367.416 ml Output Urine Total 0 ml Laboratory Tests 11/05/18 16:10: Ammonia 36H 11/05/18 21:12: Arterial Blood pH 7.263L, Arterial Blood Partial Pressure CO2 68.9*H, Arterial Blood Partial Pressure O2 95.7, Arterial Blood HCO3 30.4H, Arterial Blood Oxygen Saturation 96.2, Arterial Blood Base Excess 1.5, Mino Test Positive 11/05/18 23:21: Arterial Blood pH 7.270L, Arterial Blood Partial Pressure CO2 59.7*H, Arterial Blood Partial Pressure O2 82.5, Arterial Blood HCO3 26.8H, Arterial Blood Oxygen Saturation 94.7L, Arterial Blood Base Excess -1.2, Mino Test Positive 11/06/18 05:45: White Blood Count 7.5, Red Blood Count 5.15, Hemoglobin 13.2L, Hematocrit 44.6, Mean Corpuscular Volume 86, Mean Corpuscular Hemoglobin 25.6L, Mean Corpuscular Hemoglobin Concent 29.6L, Red Cell Distribution Width 18.8H, Platelet Count 177 , Mean Platelet Volume 7.4, Neutrophils (%) (Auto) 71.2, Lymphocytes (%) (Auto) 18.3L, Monocytes (%) (Auto) 9.3, Eosinophils (%) (Auto) 0.0, Basophils (%) (Auto ) 1.2, Sodium Level 137, Potassium Level 5.2H, Chloride Level 97L, Carbon Dioxide Level 33H, Anion Gap 7, Blood Urea Nitrogen 52H, Creatinine 7.5H, Estimat Glomerular Filtration Rate 7.3, Glucose Level 65L, Calcium Level 9.4, Phosphorus Level 7.0H, Magnesium Level 2.1, Total Bilirubin 0.3, Aspartate Amino Transf (AST/SGOT) 10L, Alanine Aminotransferase (ALT/SGPT) 10L, Alkaline Phosphatase 90, Total Protein 7.3, Albumin 3.0L, Globulin 4.3, Albumin/Globulin Ratio 0.7L, Random Vancomycin Level 5.0 11/06/18 08:40: Arterial Blood pH 7.293L, Arterial Blood Partial Pressure CO2 72.1*H, Arterial Blood Partial Pressure O2 87.8, Arterial Blood HCO3 34.1H, Arterial Blood Oxygen Saturation 94.9L, Arterial Blood Base Excess 5.2H, Mino Test Positive Height (Feet): 5 Height (Inches): 10.00 Weight (Pounds): 206 EENT: other - on BIPAP- swollen tongue ! Cardiovascular: normal rate Respiratory/Chest: decreased breath sounds Abdomen: distended Objective no change Nakul Stevens MD Nov 06, 2018 13:10
[2018-11-06] MEDS ORDERED: Hydrocortisone 100mg Inj IV SCH (13:15)
[2018-11-06] MEDS ORDERED: Vancomycin 1 GM in D5W 275 ML IVPB ONE (14:00)
--- NOTE | 2018-11-06 14:09 | Cardiac Electrophysiology PN ---
Assessment/Plan Assessment/Plan 1. Troponin elevation. The patient does not have any chest pain. Already S/P CABG. Likely due to renal failure. On Coreg 6.25 mg bid, aspirin and Lipitor but NPO except med 2. Status post coronary bypass graft 3. Nonsustained ventricular tachycardia. The patient has history of prior myocardial infarction and bypass. EF 55% 4. Congestive heart failure. On hemodialysis, per Dr. Stevens. 5. End-stage renal disease, on hemodialysis. 6. Status post right sided medtronic dual chamber pacemaker. 7. Right foot ulcer. On antibiotic. Further evaluation by Dr Huizar 8. History of liver transplant on Prograf DW RN and Dr. Huizar Subjective Subjective In SR.On BIPAP.in ICU Objective Last 24 Hour Vital Signs Date Time Temp Pulse Resp B/P (MAP) Pulse Ox O2 Delivery O2 Flow Rate FiO2 11/06/18 13:00 88 18 127/46 (73) 100 11/06/18 12:51 88 19 98 Facial 40 11/06/18 12:00 97.8 89 18 135/111 (119) 95 11/06/18 12:00 Bi-pap 11/06/18 12:00 86 11/06/18 11:17 83 19 100 Facial 40 11/06/18 11:00 84 18 108/43 (64) 100 11/06/18 10:00 86 18 131/49 (76) 97 11/06/18 09:08 86 22 98 Facial 40 11/06/18 09:00 74 22 156/74 (101) 98 11/06/18 08:26 85 109/60 11/06/18 08:00 Bi-pap 11/06/18 08:00 84 11/06/18 07:02 87 20 99 Facial 40 11/06/18 07:00 98.8 86 18 109/78 (88) 97 11/06/18 06:00 74 22 156/74 (101) 98 11/06/18 05:30 98.8 83 18 139/74 (95) 97 11/06/18 05:00 83 18 149/65 (93) 98 11/06/18 04:30 84 20 155/78 (103) 98 11/06/18 04:00 84 25 122/51 (74) 98 11/06/18 04:00 85 11/06/18 04:00 Bi-pap 11/06/18 03:30 85 21 113/57 (75) 98 11/06/18 03:00 82 10 123/57 (79) 94 11/06/18 02:30 85 19 141/35 (70) 89 11/06/18 02:00 84 13 150/88 (108) 98 11/06/18 01:30 84 21 137/45 (75) 98 11/06/18 01:00 85 15 166/40 (82) 98 11/06/18 00:00 98.1 82 15 141/55 (83) 98 11/06/18 00:00 82 11/05/18 21:00 Nasal Cannula 2.0 11/05/18 20:00 97.7 85 20 110/70 (83) 95 11/05/18 16:00 83 11/05/18 16:00 97.5 84 19 137/68 (91) 93 Intake and Output 11/05/18 11/06/18 19:00 07:00 Intake Total 367.416 ml 0 ml Output Total 0 ml Balance 367.416 ml 0 ml Intake Oral 0 ml IV Total 367.416 ml Output Urine Total 0 ml Laboratory Tests Test 11/05/18 16:10 11/05/18 21:12 11/05/18 23:21 11/06/18 05:45 Ammonia 36 umol/L (11-32) H Arterial Blood pH 7.263 (7.350-7.450) 7.270 (7.350-7.450) Arterial Blood Partial Pressure CO2 68.9 mmHg (35.0-45.0) *H 59.7 mmHg (35.0-45.0) *H Arterial Blood Partial Pressure O2 95.7 mmHg (75.0-100.0) 82.5 mmHg (75.0-100.0) Arterial Blood HCO3 30.4 mmol/L (22.0-26.0) H 26.8 mmol/L (22.0-26.0) H Arterial Blood Oxygen Saturation 96.2 % (95-100) 94.7 % (95-100) L Arterial Blood Base Excess 1.5 (-2-2) -1.2 (-2-2) Mino Test Positive Positive White Blood Count 7.5 K/UL (4.8-10.8) Red Blood Count 5.15 M/UL (4.70-6.10) Hemoglobin 13.2 G/DL (14.2-18.0) L Hematocrit 44.6 % (42.0-52.0) Mean Corpuscular Volume 86 FL (80-99) Mean Corpuscular Hemoglobin 25.6 PG (27.0-31.0) L Mean Corpuscular Hemoglobin Concent 29.6 G/DL (32.0-36.0) L Red Cell Distribution Width 18.8 % (11.6-14.8) H Platelet Count 177 K/UL (150-450) Mean Platelet Volume 7.4 FL (6.5-10.1) Neutrophils (%) (Auto) 71.2 % (45.0-75.0) Lymphocytes (%) (Auto) 18.3 % (20.0-45.0) L Monocytes (%) (Auto) 9.3 % (1.0-10.0) Eosinophils (%) (Auto) 0.0 % (0.0-3.0) Basophils (%) (Auto) 1.2 % (0.0-2.0) Sodium Level 137 MMOL/L (136-145) Potassium Level 5.2 MMOL/L (3.5-5.1) H Chloride Level 97 MMOL/L (98-107) L Carbon Dioxide Level 33 MMOL/L (21-32) H Anion Gap 7 mmol/L (5-15) Blood Urea Nitrogen 52 mg/dL (7-18) H Creatinine 7.5 MG/DL (0.55-1.30) H Estimat Glomerular Filtration Rate 7.3 mL/min (>60) Glucose Level 65 MG/DL (74-106) L Calcium Level 9.4 MG/DL (8.5-10.1) Phosphorus Level 7.0 MG/DL (2.5-4.9) H Magnesium Level 2.1 MG/DL (1.8-2.4) Total Bilirubin 0.3 MG/DL (0.2-1.0) Aspartate Amino Transf (AST/SGOT) 10 U/L (15-37) L Alanine Aminotransferase (ALT/SGPT) 10 U/L (12-78) L Alkaline Phosphatase 90 U/L (46-116) Total Protein 7.3 G/DL (6.4-8.2) Albumin 3.0 G/DL (3.4-5.0) L Globulin 4.3 g/dL Albumin/Globulin Ratio 0.7 (1.0-2.7) L Random Vancomycin Level 5.0 ug/mL Test 11/06/18 08:40 Arterial Blood pH 7.293 (7.350-7.450) Arterial Blood Partial Pressure CO2 72.1 mmHg (35.0-45.0) *H Arterial Blood Partial Pressure O2 87.8 mmHg (75.0-100.0) Arterial Blood HCO3 34.1 mmol/L (22.0-26.0) H Arterial Blood Oxygen Saturation 94.9 % (95-100) L Arterial Blood Base Excess 5.2 (-2-2) H Mino Test Positive Objective HEAD AND NECK: No JVD.On BIPAP LUNGS: Coarse rhonchi. CARDIOVASCULAR: Regular S1 and S2 with no gallop. Sternotomy is intact and pacemaker in the right chest. ABDOMEN: Soft. EXTREMITIES: 1+ pitting edema Shivam Sharpe MD Nov 06, 2018 14:09
--- NOTE | 2018-11-06 14:32 | Cardiology Report ---
APPROVED REPORT EKG Measurement Heart [id number] Abnormal ECG
[2018-11-06] MEDS ORDERED: Vancomycin 1gm/D5W 275ml IVPB SCH ×2 (16:00)
--- NOTE | 2018-11-06 16:36 | Diagnostic Imaging Report ---
Clinical Indication: Shortness of breath, upper extremity swelling Technique: IV administration nonionic contrast. Spiral acquisition obtained through the chest. Multiplanar reconstructions generated. Total dose length product 1011.47 mGycm. CTDIvol(s) 25.48 mGy. Dose reduction achieved using automated exposure control Comparison: 03/12/2016 Findings: There is a right chest pacemaker, leads extending through the right subclavian vein into the innominate vein, inferior vena cava, and right heart. The right subclavian, innominate veins and superior vena cava are patent. There appears to be interim occlusion versus near occlusive stenosis of the left innominate vein at its origin numerous chest wall collaterals are demonstrated on the left, as well as considerable venous filling via the azygos vein. The thoracic aorta and branches appear to be patent. There is dilatation of the main pulmonary artery, which measures 43 mm in diameter. This is also evident on the prior exam. There is considerable edema of the chest wall fat, particularly on the right. There is also some edema of the mediastinal fat. There is a large right pleural effusion. There is complete atelectasis of the right lower lobe. There is atelectasis of portions of the right upper and middle lobes. There is a moderate size left pleural effusion this results in compressive atelectasis of portions of the left lower lobe. The aerated portions of the lung demonstrate diffuse groundglass opacity. No definite dense consolidation or mass lesions demonstrated. The heart is enlarged. There is evidence of prior CABG. Previously demonstrated pericardial effusion is no longer evident. There is mild edema of the mediastinal fat. The included thyroid appears unremarkable. There is bilateral gynecomastia. This was also demonstrated previously. Hilar elizabeth calcifications are again noted. Included upper abdominal anatomy demonstrates a small amount of ascites fluid. The spleen is enlarged. There are splenic hilar and perigastric varices. There are spontaneous splenorenal shunt type varices. Unusual mural calcification of the splenic portal venous confluence is noted. There is congestion of the mesenteric root. Renal atrophy and right renal cysts are again noted. There is evidence of prior cholecystectomy. Impression: Right chest pacemaker, with wires in the right subclavian, innominate veins and superior vena cava as well as the right heart. The right subclavian, innominate veins and superior vena cava are patent. 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 However, superior vena cava syndrome is unlikely given the patency of the right central chest veins. Massive right pleural effusion, resulting in atelectasis of the right lower lobe and portions of the right middle and upper lobes Moderate size left pleural effusion, with partial atelectasis of the left lung as a result. Diffuse groundglass opacity within the aerated portions of the lung, likely edema Cardiomegaly Evidence of prior CABG Small amount of ascites fluid Congestion of the mediastinal fat Splenomegaly. Splenic hilar and perigastric varices, also previously described, likely indicating portal hypertension Small amount of ascites, also previously reported Congestion of the mesenteric root, likely related to portal hypertension Incidentally findings as noted, including evidence of prior cholecystectomy, unusual mural calcification of splenic portal venous confluence, bilateral gynecomastia, old granulomatous hilar elizabeth calcifications This agrees with the preliminary interpretation provided overnight by [facility]erad[facility] service, with some variation. The CT scanner at [facility] is accredited by the [employer] and the scans are performed using protocols designed to limit radiation exposure to as low as reasonably achievable to attain images of sufficient resolution adequate for diagnostic evaluation.
[2018-11-06] MEDS ORDERED: Isovue-370 150ml vial INJ PRN (18:30)
--- NOTE | 2018-11-06 20:30 | Consultation ---
DATE OF CONSULTATION: 11/06/2018 CONSULTING PHYSICIAN: Alex Man M.D. REQUESTING PHYSICIAN: 1. Saroj Mendoza M.D. 2. Darius Carter M.D. INDICATION FOR HEAD AND NECK SURGERY, ENT CONSULTATION: Swelling of the tongue. The patient is giving me poor history. He cannot talk well and he has BiPAP on. PAST MEDICAL HISTORY: Significant and includes diabetes, heart disease including congestive heart failure. He was admitted for foot issue. He has a pacemaker. He has cellulitis of the abdominal wall, encephalopathy according to the record, pericardial effusion on this visit, tachycardia, sepsis. MEDICATIONS: His medications include Prograf, Lipitor, MiraLAX, Glo-Hex, Benadryl, Ecotrin, calcium acetate, Coreg, Colace, gabapentin, ProAmatine, pantoprazole, Nephro-Lexii, Renvela, Kayexalate, vancomycin, insulin NovoLog, Starlix, Medanales, morphine sulfate, aspirin. PAST MEDICAL HISTORY: Taken from the chart. 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 In the past, he has had CABG. He is to have a CT angio of the chest. ALLERGIES: He is allergic to cephalexin, sulfamethoxazole, trimethoprim. PHYSICAL EXAMINATION: GENERAL: He is an obese male. He is sitting in bed with a BiPAP on. VITAL SIGNS: BMI 29.6 kg/m2. He is 177.8 cm, 93.451 kg. HEENT: His tongue is swollen, but he . He has swelling at the back of his throat. ASSESSMENT: Tongue swelling. RECOMMENDATIONS: I would recommend a CT scan of his neck at the same time he is getting the angio if that is possible. Additionally, I am out of town this weekend as of 3 hours from now. Trach prophylactically may be indicated depending on the results of the CT scan. Steroids can be used, but that will obviously affect his infection in his foot and his torso cellulitis as well as his diabetes. I will be available by phone this weekend, but if he needs a trach, we can try to find another physician to take care of that. Thank you very much for asking my opinion in the care and treatment of this patient. Alex Man M.D. DR: Marcial JOB#: [id number] CC:
[2018-11-06] MEDS: Dyna-Hex 2% Top Sol 2oz TOPIC SCH (20:46)
[2018-11-06] MEDS: Pantoprazole Inj IVP SCH (20:47)
[2018-11-06] MEDS ORDERED: Miralax 17gm pkt ORAL SCH (21:00)
--- NOTE | 2018-11-06 21:30 | Infectious Diseases Prog Note ---
Assessment/Plan Problems: (1) Ground glass opacity present on imaging of lung Assessment & Plan: rule out atypical organisms in transplant patient , will send fungal serology( crypt, cocci, histo, and aspergillosis ) and viral PCR for CMV and herpes . (2) Foot ulcer Assessment & Plan: in diabetic patient , with necrosis and Infection due to MRSA , rule out deep infection . continue vancomycin treatment with HD , pending vascular clearance and surgical debridement. await bone scan to rule out osteomyelitis of the heel . (3) Cellulitis, abdominal wall Assessment & Plan: already on vancomycin improving (4) DM (diabetes mellitus) Assessment & Plan: recommend tight glycemic control to keep blood glucose between 100-140 (5) CHF (congestive heart failure) Assessment & Plan: on HD , renal is following, monitor daily weight (6) Encephalopathy acute Assessment & Plan: suspect metabolic, with high urea level, will check his ammonia, recommend neurology eval (7) Severe tongue swelling Assessment & Plan: recommend ENT eval , may need intubation to protect his airway . Subjective ROS Limited/Unobtainable: Yes Allergies: Coded Allergies: CEPHALEXIN (Unverified Allergy, Unknown, 02/24/14) SULFAMETHOXAZOLE (Unverified Allergy, Unknown, 02/24/14) TRIMETHOPRIM (Unverified Allergy, Unknown, 02/24/14) Subjective he was lethargic and minimally responsive, open eyes and make eye contact, but goes back to sleep, has swelling in his eyes lids and tongue . no fever or chills, no skin redness around the heel wound Objective Vital Signs Last 24 Hour Vital Signs Date Time Temp Pulse Resp B/P (MAP) Pulse Ox O2 Delivery O2 Flow Rate FiO2 11/06/18 20:47 87 109/96 11/06/18 18:56 87 20 98 Facial 40 11/06/18 18:00 86 13 146/50 (82) 97 11/06/18 17:14 87 25 98 Facial 40 11/06/18 17:00 85 12 146/50 (82) 97 11/06/18 16:00 86 11/06/18 16:00 Bi-pap 11/06/18 16:00 85 11 142/39 (73) 98 11/06/18 15:07 89 23 100 Facial 40 11/06/18 15:00 88 14 135/61 (85) 99 11/06/18 14:00 87 18 141/33 (69) 100 11/06/18 13:00 88 18 127/46 (73) 100 11/06/18 12:51 88 19 98 Facial 40 11/06/18 12:00 97.8 89 18 135/111 (119) 95 11/06/18 12:00 Bi-pap 11/06/18 12:00 86 11/06/18 11:17 83 19 100 Facial 40 11/06/18 11:00 84 18 108/43 (64) 100 11/06/18 10:00 86 18 131/49 (76) 97 11/06/18 09:08 86 22 98 Facial 40 11/06/18 09:00 74 22 156/74 (101) 98 11/06/18 08:26 85 109/60 11/06/18 08:00 Bi-pap 11/06/18 08:00 84 11/06/18 07:02 87 20 99 Facial 40 11/06/18 07:00 98.8 86 18 109/78 (88) 97 11/06/18 06:00 74 22 156/74 (101) 98 11/06/18 05:30 98.8 83 18 139/74 (95) 97 11/06/18 05:00 83 18 149/65 (93) 98 11/06/18 04:30 84 20 155/78 (103) 98 11/06/18 04:00 84 25 122/51 (74) 98 11/06/18 04:00 85 11/06/18 04:00 Bi-pap 11/06/18 03:30 85 21 113/57 (75) 98 11/06/18 03:00 82 10 123/57 (79) 94 11/06/18 02:30 85 19 141/35 (70) 89 11/06/18 02:00 84 13 150/88 (108) 98 11/06/18 01:30 84 21 137/45 (75) 98 11/06/18 01:00 85 15 166/40 (82) 98 11/06/18 00:00 98.1 82 15 141/55 (83) 98 11/06/18 00:00 82 Height (Feet): 5 Height (Inches): 10.00 Weight (Pounds): 206 General Appearance: no acute distress, other - lethargic HEENT: atraumatic, anicteric, mucous membranes moist, PERRL, supple, no JVD, other - tongue swelling , facial swelling Respiratory/Chest: chest wall non-tender, no respiratory distress, no accessory muscle use, decreased breath sounds, crackles/rales Cardiovascular: normal peripheral pulses, normal rate, regular rhythm, no gallop/murmur, no JVD Abdomen: normal bowel sounds, soft, non tender, no organomegaly, non distended , no mass, no scars Genitourinary: normal external genitalia Extremities: no cyanosis, no clubbing, other - right heel ulcer Skin: no rash, no lesions, ulcers 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: alert, other - lethargic , on BIPAP Lymphatic: no neck adenopathy, no groin adenopathy Musculoskeletal: normal muscle bulk, no effusion Laboratory Tests Test 11/05/18 23:21 11/06/18 05:45 11/06/18 08:40 Arterial Blood pH 7.270 (7.350-7.450) 7.293 (7.350-7.450) Arterial Blood Partial Pressure CO2 59.7 mmHg (35.0-45.0) *H 72.1 mmHg (35.0-45.0) *H Arterial Blood Partial Pressure O2 82.5 mmHg (75.0-100.0) 87.8 mmHg (75.0-100.0) Arterial Blood HCO3 26.8 mmol/L (22.0-26.0) H 34.1 mmol/L (22.0-26.0) H Arterial Blood Oxygen Saturation 94.7 % (95-100) L 94.9 % (95-100) L Arterial Blood Base Excess -1.2 (-2-2) 5.2 (-2-2) H Mino Test Positive Positive White Blood Count 7.5 K/UL (4.8-10.8) Red Blood Count 5.15 M/UL (4.70-6.10) Hemoglobin 13.2 G/DL (14.2-18.0) L Hematocrit 44.6 % (42.0-52.0) Mean Corpuscular Volume 86 FL (80-99) Mean Corpuscular Hemoglobin 25.6 PG (27.0-31.0) L Mean Corpuscular Hemoglobin Concent 29.6 G/DL (32.0-36.0) L Red Cell Distribution Width 18.8 % (11.6-14.8) H Platelet Count 177 K/UL (150-450) Mean Platelet Volume 7.4 FL (6.5-10.1) Neutrophils (%) (Auto) 71.2 % (45.0-75.0) Lymphocytes (%) (Auto) 18.3 % (20.0-45.0) L Monocytes (%) (Auto) 9.3 % (1.0-10.0) Eosinophils (%) (Auto) 0.0 % (0.0-3.0) Basophils (%) (Auto) 1.2 % (0.0-2.0) Sodium Level 137 MMOL/L (136-145) Potassium Level 5.2 MMOL/L (3.5-5.1) H Chloride Level 97 MMOL/L (98-107) L Carbon Dioxide Level 33 MMOL/L (21-32) H Anion Gap 7 mmol/L (5-15) Blood Urea Nitrogen 52 mg/dL (7-18) H Creatinine 7.5 MG/DL (0.55-1.30) H Estimat Glomerular Filtration Rate 7.3 mL/min (>60) Glucose Level 65 MG/DL (74-106) L Calcium Level 9.4 MG/DL (8.5-10.1) Phosphorus Level 7.0 MG/DL (2.5-4.9) H Magnesium Level 2.1 MG/DL (1.8-2.4) Total Bilirubin 0.3 MG/DL (0.2-1.0) Aspartate Amino Transf (AST/SGOT) 10 U/L (15-37) L Alanine Aminotransferase (ALT/SGPT) 10 U/L (12-78) L Alkaline Phosphatase 90 U/L (46-116) Total Protein 7.3 G/DL (6.4-8.2) Albumin 3.0 G/DL (3.4-5.0) L Globulin 4.3 g/dL Albumin/Globulin Ratio 0.7 (1.0-2.7) L Random Vancomycin Level 5.0 ug/mL Current Medications Medications (Trade) Dose Ordered Sig/Aleks Route PRN Reason Start Time Stop Time Status Last Admin Dose Admin Acetaminophen (Tylenol) 650 mg Q4H PRN ORAL Mild Pain/Temp > 100.5 11/05/18 22:45 11/30/18 22:44 Aspirin (Ecotrin) 81 mg DAILY ORAL 11/06/18 09:00 12/03/18 08:59 11/06/18 08:25 Atorvastatin Calcium (Lipitor) 10 mg BEDTIME ORAL 11/06/18 21:00 12/02/18 20:59 Carvedilol (Coreg) 6.25 mg EVERY 12 HOURS ORAL 11/06/18 09:00 12/01/18 08:59 11/06/18 08:26 Chlorhexidine Gluconate (Glo-Hex 2%) 1 applic DAILY@2000 TOPIC 11/06/18 20:00 12/05/18 19:59 11/06/18 20:46 Dextrose 1,000 ml @ 50 mls/hr Q20H IV 11/06/18 18:30 12/06/18 18:29 11/06/18 18:33 Dextrose (Dextrose 50%) 25 ml Q30M PRN IV Hypoglycemia 11/05/18 22:15 11/30/18 22:44 11/06/18 15:46 Dextrose (Dextrose 50%) 50 ml Q30M PRN IV Hypoglycemia 11/05/18 22:15 11/30/18 22:44 Insulin Aspart (NovoLOG) BEFORE MEALS AND HS SUBQ 11/06/18 06:30 12/01/18 06:29 Iopamidol (Isovue-370 150ml) 150 ml NOW PRN INJ Radiology Procedure 11/06/18 18:30 11/07/18 18:27 Midodrine (Pro-Amatine) 2.5 mg TID ORAL 11/06/18 09:00 12/01/18 11:59 11/06/18 08:26 Nicotine (Nicoderm) 1 patch Q24H TDERMAL 11/05/18 22:15 12/01/18 22:14 Pantoprazole (Protonix) 40 mg EVERY 12 HOURS IVP 11/06/18 21:00 12/06/18 20:59 11/06/18 20:47 Tacrolimus (Prograf) 2 mg MoWeFr@0000,1200 ORAL 11/06/18 00:00 12/02/18 00:00 Tacrolimus (Prograf) 2 mg SuTuThSa@0900,2100 ORAL 11/07/18 09:00 12/01/18 20:59 Francois Landis M.D. Nov 06, 2018 21:30
[2018-11-07] VITALS (24 sets, daily range): BP systolic 107–167; BP diastolic 34–108
--- NOTE | 2018-11-07 00:15 | Progress Note ---
DATE: 11/06/2018 SUBJECTIVE: This is an elderly male, currently critically sick and was found to have mild short of breath, altered, and has tongue swelling. The patient was transferred to the ICU for protection of the airway. The patient currently opens his eyes, on BiPAP. He looks critically sick. PHYSICAL EXAMINATION: VITAL SIGNS: Blood pressure , pulse 87, respirations 18. No fever. SKIN: Good skin turgor. HEENT: Eyes are open. Tongue is swollen. NECK: Supple. CHEST: Bilateral decreased breath sounds. CARDIOVASCULAR: Regular rhythm. Tachycardia. ABDOMEN: Soft. EXTREMITIES: No CCE. NEUROLOGICAL: Generalized weakness. LABORATORY EXAMINATION: White count 7.5, hemoglobin 13, hematocrit 44, platelets 177,000. Chemistry panel, sodium 137, potassium 5.2, BUN 52, creatinine 7.5, glucose is 52. Total protein is 7.3, albumin is 3. ASSESSMENT AND PLAN: 1. Acute respiratory distress. 2. Possible SVC syndrome, but the patient has tests negative. 3. Tongue swelling. 4. COPD. 5. Fluid overload. 6. Hypertension. PLAN: 1. We will currently continue current medical treatment. 2. Pulmonary . 3. Continue Lipitor. 4. Continue PPI. 5. NPO. 6. Given Benadryl. Add IV fluid, half D5W 50 mL for hypoglycemia. 7. Continue current treatment. 8. Discussed with Dr. Mendoza and Dr. Stevens. Jamari Carter M.D. DR: Veronica JOB#: [id number] CC:
[2018-11-07 05:22] LABS: BASOPHILS % (AUTO) 0.8 % (0.0-2.0); HEMATOCRIT 45.2 % (42.0-52.0); HEMOGLOBIN 13.5 G/DL (14.2-18.0); LYMPHOCYTES % (AUTO) 17.9 % (20.0-45.0); MEAN CORPUSCULAR VOLUME 86 FL (80-99); NEUTROPHILS % (AUTO) 73.3 % (45.0-75.0); PLATELET COUNT 172 K/UL (150-450); RED BLOOD COUNT 5.29 M/UL (4.70-6.10); WHITE BLOOD COUNT 6.4 K/UL (4.8-10.8)
[2018-11-07 05:38] LABS: ALANINE AMINOTRANSFERASE 14 U/L (12-78); ALBUMIN/GLOBULIN RATIO 0.7 (1.0-2.7); ALKALINE PHOSPHATASE 89 U/L (46-116); ANION GAP 8 mmol/L (5-15); ASPARTATE AMINO TRANSFERASE 15 U/L (15-37); BILIRUBIN,TOTAL 0.4 MG/DL (0.2-1.0); BLOOD UREA NITROGEN 41 mg/dL (7-18); CALCIUM 9.3 MG/DL (8.5-10.1); CARBON DIOXIDE 34 MMOL/L (21-32); CHLORIDE 97 MMOL/L (98-107); CREATININE 6.6 MG/DL (0.55-1.30); PHOSPHORUS 6.4 MG/DL (2.5-4.9); POTASSIUM 4.7 MMOL/L (3.5-5.1); SODIUM 139 MMOL/L (136-145)
[2018-11-07] MEDS: NovoLOG Insulin Flexpen SUBQ SCH ×4 (05:42→21:02)
[2018-11-07] MEDS: Aspirin EC 81mg tab ORAL SCH (09:00)
[2018-11-07] MEDS: Carvedilol 6.25mg Tab ORAL SCH ×2 (09:00→21:00)
[2018-11-07] MEDS: Pantoprazole Inj IVP SCH ×2 (09:00→21:01)
--- NOTE | 2018-11-07 15:56 | Infectious Diseases Prog Note ---
Assessment/Plan Problems: (1) Ground glass opacity present on imaging of lung Assessment & Plan: rule out atypical organisms in transplant patient , await fungal serology( crypt, cocci, histo, and aspergillosis ) and viral PCR for CMV and herpes . 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 bone scan ruled out osteomyelitis of the heel . will treat with vancomycin with HD for two weeks total (3) Cellulitis, abdominal wall Assessment & Plan: already on vancomycin improving (4) DM (diabetes mellitus) Assessment & Plan: recommend tight glycemic control to keep blood glucose between 100-140 (5) CHF (congestive heart failure) Assessment & Plan: on HD , renal is following, monitor daily weight (6) Encephalopathy acute Assessment & Plan: suspect metabolic, with high urea level, improving. (7) Severe tongue swelling Assessment & Plan: improving after steroids , was evaluated by ENT , continue BIPAP , may need intubation to protect his airway if respiratory status worsened . pulmonary is following (8) Pleural effusion Assessment & Plan: massive on the right, rule out infectious etiology, recommend thoracentesis and fluids to be sent for gram stain, culture, fungal and AFB, cytology and pathology Subjective ROS Limited/Unobtainable: Yes Allergies: Coded Allergies: CEPHALEXIN (Unverified Allergy, Unknown, 02/24/14) SULFAMETHOXAZOLE (Unverified Allergy, Unknown, 02/24/14) TRIMETHOPRIM (Unverified Allergy, Unknown, 02/24/14) Subjective he was more awake and responsive, still on BIPAP , has LESS swelling in his eyes lids and tongue . no fever or chills, no cough or phlegm , no SOB . no skin redness around the heel wound Objective Vital Signs Last 24 Hour Vital Signs Date Time Temp Pulse Resp B/P (MAP) Pulse Ox O2 Delivery O2 Flow Rate FiO2 11/07/18 15:11 83 22 99 Facial 40 11/07/18 14:00 82 24 148/34 (72) 99 11/07/18 13:00 98.2 81 15 142/54 (83) 99 11/07/18 12:30 71 18 96 Facial 40 11/07/18 12:00 Bi-pap 11/07/18 12:00 40.0 11/07/18 12:00 82 17 158/49 (85) 99 11/07/18 12:00 81 11/07/18 11:00 83 24 142/52 (82) 99 11/07/18 10:43 81 20 99 Facial 40 11/07/18 10:00 79 12 119/52 (74) 98 11/07/18 09:00 82 123/49 11/07/18 09:00 79 13 131/36 (67) 98 11/07/18 08:30 75 18 98 Facial 40 11/07/18 08:00 78 14 124/39 (67) 98 11/07/18 08:00 78 11/07/18 08:00 Bi-pap 11/07/18 07:00 78 13 107/42 (63) 98 11/07/18 06:45 88 20 96 Full Face 40 11/07/18 06:00 98.9 81 15 142/58 (86) 99 11/07/18 05:14 81 18 98 Full Face 40 11/07/18 05:00 78 10 132/61 (84) 98 11/07/18 04:00 80 18 118/59 (78) 99 11/07/18 04:00 Bi-pap 11/07/18 04:00 77 11/07/18 04:00 40.0 11/07/18 03:05 87 19 98 Full Face 40 11/07/18 03:00 81 18 152/77 (102) 97 11/07/18 02:00 85 13 167/76 (106) 98 11/07/18 01:10 86 20 98 Facial 40 11/07/18 01:00 84 17 142/108 (119) 99 11/07/18 00:00 97.8 87 15 136/62 (86) 98 11/07/18 00:00 40.0 11/07/18 00:00 87 11/07/18 00:00 Bi-pap 11/06/18 23:00 83 11 121/56 (77) 97 11/06/18 22:48 85 19 98 Facial 40 11/06/18 22:00 84 17 118/47 (70) 98 11/06/18 21:02 87 20 98 Facial 40 11/06/18 21:00 85 13 122/48 (72) 97 11/06/18 20:47 87 109/96 11/06/18 20:00 88 11/06/18 20:00 88 16 109/96 (100) 97 11/06/18 20:00 Bi-pap 11/06/18 20:00 40.0 11/06/18 19:00 98.1 87 20 140/51 (80) 98 11/06/18 18:56 87 20 98 Facial 40 11/06/18 18:00 86 13 146/50 (82) 97 11/06/18 17:14 87 25 98 Facial 40 11/06/18 17:00 85 12 146/50 (82) 97 11/06/18 16:00 86 11/06/18 16:00 Bi-pap 11/06/18 16:00 85 11 142/39 (73) 98 Height (Feet): 5 Height (Inches): 10.00 Weight (Pounds): 196 General Appearance: WD/WN, no acute distress, other - on BIPAP HEENT: atraumatic, anicteric, mucous membranes moist, PERRL, EOMI, supple, no JVD, other - throat and tongue swelling Respiratory/Chest: chest wall non-tender, no respiratory distress, no accessory muscle use, decreased breath sounds, crackles/rales Cardiovascular: normal peripheral pulses, normal rate, regular rhythm, no gallop/murmur, no JVD Abdomen: normal bowel sounds, soft, non tender, no organomegaly, non distended , no mass, no scars Genitourinary: normal external genitalia Extremities: no cyanosis, no clubbing Skin: no rash, no lesions, ulcers - right heel wound 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: information officer 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 normal, no motor/sensory deficits, alert, responsive Lymphatic: no neck adenopathy, no groin adenopathy Musculoskeletal: normal muscle bulk, no effusion Laboratory Tests Test 11/07/18 03:40 11/07/18 08:42 White Blood Count 6.4 K/UL (4.8-10.8) Red Blood Count 5.29 M/UL (4.70-6.10) Hemoglobin 13.5 G/DL (14.2-18.0) L Hematocrit 45.2 % (42.0-52.0) Mean Corpuscular Volume 86 FL (80-99) Mean Corpuscular Hemoglobin 25.5 PG (27.0-31.0) L Mean Corpuscular Hemoglobin Concent 29.8 G/DL (32.0-36.0) L Red Cell Distribution Width 18.0 % (11.6-14.8) H Platelet Count 172 K/UL (150-450) Mean Platelet Volume 7.2 FL (6.5-10.1) Neutrophils (%) (Auto) 73.3 % (45.0-75.0) Lymphocytes (%) (Auto) 17.9 % (20.0-45.0) L Monocytes (%) (Auto) 8.0 % (1.0-10.0) Eosinophils (%) (Auto) 0.0 % (0.0-3.0) Basophils (%) (Auto) 0.8 % (0.0-2.0) Sodium Level 139 MMOL/L (136-145) Potassium Level 4.7 MMOL/L (3.5-5.1) Chloride Level 97 MMOL/L (98-107) L Carbon Dioxide Level 34 MMOL/L (21-32) H Anion Gap 8 mmol/L (5-15) Blood Urea Nitrogen 41 mg/dL (7-18) H Creatinine 6.6 MG/DL (0.55-1.30) H Estimat Glomerular Filtration Rate 8.4 mL/min (>60) Glucose Level 109 MG/DL (74-106) H Uric Acid 4.2 MG/DL (2.6-7.2) Calcium Level 9.3 MG/DL (8.5-10.1) Phosphorus Level 6.4 MG/DL (2.5-4.9) H Magnesium Level 2.0 MG/DL (1.8-2.4) Total Bilirubin 0.4 MG/DL (0.2-1.0) Aspartate Amino Transf (AST/SGOT) 15 U/L (15-37) Alanine Aminotransferase (ALT/SGPT) 14 U/L (12-78) Alkaline Phosphatase 89 U/L (46-116) Troponin I 0.137 ng/mL (0.000-0.056) C-Reactive Protein, Quantitative 9.5 mg/dL (0.00-0.90) H Pro-B-Type Natriuretic Peptide > 72899 pg/mL (0-125) H Total Protein 7.5 G/DL (6.4-8.2) Albumin 3.0 G/DL (3.4-5.0) L Globulin 4.5 g/dL Albumin/Globulin Ratio 0.7 (1.0-2.7) L Vitamin B12 Level 723 PG/ML (193-986) Folate 18.6 NG/ML (8.6-58.9) Random Vancomycin Level 13.5 ug/mL Arterial Blood pH 7.331 (7.350-7.450) Arterial Blood Partial Pressure CO2 65.5 mmHg (35.0-45.0) *H Arterial Blood Partial Pressure O2 96.6 mmHg (75.0-100.0) Arterial Blood HCO3 33.8 mmol/L (22.0-26.0) H Arterial Blood Oxygen Saturation 96.8 % (95-100) Arterial Blood Base Excess 5.8 (-2-2) H Mino Test Positive Current Medications Medications (Trade) Dose Ordered Sig/Aleks Route PRN Reason Start Time Stop Time Status Last Admin Dose Admin Acetaminophen (Tylenol) 650 mg Q4H PRN ORAL Mild Pain/Temp > 100.5 11/05/18 22:45 11/30/18 22:44 Aspirin (Ecotrin) 81 mg DAILY ORAL 11/06/18 09:00 12/03/18 08:59 11/06/18 08:25 Atorvastatin Calcium (Lipitor) 10 mg BEDTIME ORAL 11/06/18 21:00 12/02/18 20:59 Carvedilol (Coreg) 6.25 mg EVERY 12 HOURS ORAL 11/06/18 09:00 12/01/18 08:59 11/06/18 08:26 Chlorhexidine Gluconate (Glo-Hex 2%) 1 applic DAILY@2000 TOPIC 11/06/18 20:00 12/05/18 19:59 11/06/18 20:46 Dextrose 1,000 ml @ 50 mls/hr Q20H IV 11/06/18 18:30 12/06/18 18:29 11/07/18 12:47 Dextrose (Dextrose 50%) 25 ml Q30M PRN IV Hypoglycemia 11/05/18 22:15 11/30/18 22:44 11/06/18 15:46 Dextrose (Dextrose 50%) 50 ml Q30M PRN IV Hypoglycemia 11/05/18 22:15 11/30/18 22:44 Insulin Aspart (NovoLOG) BEFORE MEALS AND HS SUBQ 11/06/18 06:30 12/01/18 06:29 Iopamidol (Isovue-370 150ml) 150 ml NOW PRN INJ Radiology Procedure 11/06/18 18:30 11/07/18 18:27 Midodrine (Pro-Amatine) 2.5 mg TID ORAL 11/06/18 09:00 12/01/18 11:59 11/06/18 08:26 Nicotine (Nicoderm) 1 patch Q24H TDERMAL 11/05/18 22:15 12/01/18 22:14 11/06/18 23:03 Pantoprazole (Protonix) 40 mg EVERY 12 HOURS IVP 11/06/18 21:00 12/06/18 20:59 11/07/18 09:00 Tacrolimus (Prograf) 2 mg MoWeFr@0000,1200 ORAL 11/06/18 00:00 12/02/18 00:00 Tacrolimus (Prograf) 2 mg SuTuThSa@0900,2100 ORAL 11/07/18 09:00 12/01/18 20:59 Francois Landis M.D. Nov 07, 2018 15:56
--- NOTE | 2018-11-07 16:57 | Nephrology Progress Note ---
Assessment/Plan Problem List: (1) ESRD (end stage renal disease) on dialysis (2) Foot ulcer (3) CHF (congestive heart failure) (4) Pacemaker (5) Acute respiratory failure Assessment: with Co2 retention Assessment ESRD with high K and SOB Foot ulcer, likely infected High Troponin likely NSTMI Pacer , Pleural effusion s/p CABGS s/p Liver transplant Plan Plan; discussed with Dr Mendoza 11/06 DC unnecessary pills as patient NPO One dose of solumedrol 11/06 continue BIPAP - retains CO2 check ABG s repeat dialysis 11/06 as patient received Contrast with CT I adjust Vanco dosages Redose Vanco 11/07 per cardio and ID try Kayexelate as needed Poor Prognosis Podiatry and Vascular surgical eval Subjective ROS Limited/Unobtainable: No Constitutional: Reports: malaise, weakness Objective Objective Last 24 Hour Vital Signs Date Time Temp Pulse Resp B/P (MAP) Pulse Ox O2 Delivery O2 Flow Rate FiO2 11/07/18 16:00 40.0 11/07/18 16:00 Bi-pap 11/07/18 15:11 83 22 99 Facial 40 11/07/18 15:00 80 24 138/39 (72) 99 11/07/18 14:00 82 24 148/34 (72) 99 11/07/18 13:00 98.2 81 15 142/54 (83) 99 11/07/18 12:30 71 18 96 Facial 40 11/07/18 12:00 Bi-pap 11/07/18 12:00 40.0 11/07/18 12:00 82 17 158/49 (85) 99 11/07/18 12:00 81 11/07/18 11:00 83 24 142/52 (82) 99 11/07/18 10:43 81 20 99 Facial 40 11/07/18 10:00 79 12 119/52 (74) 98 11/07/18 09:00 82 123/49 11/07/18 09:00 79 13 131/36 (67) 98 11/07/18 08:30 75 18 98 Facial 40 11/07/18 08:00 78 14 124/39 (67) 98 11/07/18 08:00 78 11/07/18 08:00 Bi-pap 11/07/18 07:00 78 13 107/42 (63) 98 11/07/18 06:45 88 20 96 Full Face 40 11/07/18 06:00 98.9 81 15 142/58 (86) 99 11/07/18 05:14 81 18 98 Full Face 40 11/07/18 05:00 78 10 132/61 (84) 98 11/07/18 04:00 80 18 118/59 (78) 99 11/07/18 04:00 Bi-pap 11/07/18 04:00 77 11/07/18 04:00 40.0 11/07/18 03:05 87 19 98 Full Face 40 11/07/18 03:00 81 18 152/77 (102) 97 11/07/18 02:00 85 13 167/76 (106) 98 11/07/18 01:10 86 20 98 Facial 40 11/07/18 01:00 84 17 142/108 (119) 99 11/07/18 00:00 97.8 87 15 136/62 (86) 98 11/07/18 00:00 40.0 11/07/18 00:00 87 11/07/18 00:00 Bi-pap 11/06/18 23:00 83 11 121/56 (77) 97 11/06/18 22:48 85 19 98 Facial 40 11/06/18 22:00 84 17 118/47 (70) 98 11/06/18 21:02 87 20 98 Facial 40 11/06/18 21:00 85 13 122/48 (72) 97 11/06/18 20:47 87 109/96 11/06/18 20:00 88 11/06/18 20:00 88 16 109/96 (100) 97 11/06/18 20:00 Bi-pap 11/06/18 20:00 40.0 11/06/18 19:00 98.1 87 20 140/51 (80) 98 11/06/18 18:56 87 20 98 Facial 40 11/06/18 18:00 86 13 146/50 (82) 97 11/06/18 17:14 87 25 98 Facial 40 11/06/18 17:00 85 12 146/50 (82) 97 Intake and Output 11/06/18 11/07/18 19:00 07:00 Intake Total 0 ml 622.5 ml Output Total 0 ml 2600 ml Balance 0 ml -1977.5 ml Intake Oral 0 ml IV Total 622.5 ml Output Urine Total 0 ml 0 ml Hemodialysis UF 2600 ml Laboratory Tests 11/07/18 03:40: White Blood Count 6.4, Red Blood Count 5.29, Hemoglobin 13.5L, Hematocrit 45.2, Mean Corpuscular Volume 86, Mean Corpuscular Hemoglobin 25.5L, Mean Corpuscular Hemoglobin Concent 29.8L, Red Cell Distribution Width 18.0H, Platelet Count 172 , Mean Platelet Volume 7.2, Neutrophils (%) (Auto) 73.3, Lymphocytes (%) (Auto) 17.9L, Monocytes (%) (Auto) 8.0, Eosinophils (%) (Auto) 0.0, Basophils (%) (Auto ) 0.8, Sodium Level 139, Potassium Level 4.7, Chloride Level 97L, Carbon Dioxide Level 34H, Anion Gap 8, Blood Urea Nitrogen 41H, Creatinine 6.6H, Estimat Glomerular Filtration Rate 8.4, Glucose Level 109H, Uric Acid 4.2, Calcium Level 9.3, Phosphorus Level 6.4H, Magnesium Level 2.0, Total Bilirubin 0.4, Aspartate Amino Transf (AST/SGOT) 15, Alanine Aminotransferase (ALT/SGPT) 14, Alkaline Phosphatase 89, Troponin I 0.137H, C-Reactive Protein, Quantitative 9.5H, Pro-B-Type Natriuretic Peptide > 48540F, Total Protein 7.5, Albumin 3.0L, Globulin 4.5, Albumin/Globulin Ratio 0.7L, Vitamin B12 Level 723, Folate 18.6, Random Vancomycin Level 13.5 11/07/18 08:42: Arterial Blood pH 7.331L, Arterial Blood Partial Pressure CO2 65.5*H, Arterial Blood Partial Pressure O2 96.6, Arterial Blood HCO3 33.8H, Arterial Blood Oxygen Saturation 96.8, Arterial Blood Base Excess 5.8H, Mino Test Positive Height (Feet): 5 Height (Inches): 10.00 Weight (Pounds): 196 EENT: other - on BIPAP Respiratory/Chest: decreased breath sounds Abdomen: soft, distended Objective no change Nakul Stevens MD Nov 07, 2018 16:57
--- NOTE | 2018-11-07 17:02 | Cardiac Electrophysiology PN ---
Assessment/Plan Assessment/Plan 1. Troponin elevation. The patient does not have any chest pain. Already S/P CABG. Likely due to renal failure. On Coreg 6.25 mg bid, aspirin and Lipitor but not taking po Likely needs NG tube 2. Status post coronary bypass graft 3. Nonsustained ventricular tachycardia. The patient has history of prior myocardial infarction and bypass. EF 55% 4. Congestive heart failure. On hemodialysis, per Dr. Stevens. 5. End-stage renal disease, on hemodialysis. 6. Status post right sided medtronic dual chamber pacemaker. 7. Right foot ulcer. On antibiotic. Further evaluation by Dr Huizar 8. History of liver transplant on Prograf DW RN Subjective Subjective In SR.On BIPAP in ICU alert off pressors Objective Last 24 Hour Vital Signs Date Time Temp Pulse Resp B/P (MAP) Pulse Ox O2 Delivery O2 Flow Rate FiO2 11/07/18 16:00 40.0 11/07/18 16:00 82 22 154/37 (76) 99 11/07/18 16:00 82 11/07/18 16:00 Bi-pap 11/07/18 15:11 83 22 99 Facial 40 11/07/18 15:00 80 24 138/39 (72) 99 11/07/18 14:00 82 24 148/34 (72) 99 11/07/18 13:00 98.2 81 15 142/54 (83) 99 11/07/18 12:30 71 18 96 Facial 40 11/07/18 12:00 Bi-pap 11/07/18 12:00 40.0 11/07/18 12:00 82 17 158/49 (85) 99 11/07/18 12:00 81 11/07/18 11:00 83 24 142/52 (82) 99 11/07/18 10:43 81 20 99 Facial 40 11/07/18 10:00 79 12 119/52 (74) 98 11/07/18 09:00 82 123/49 11/07/18 09:00 79 13 131/36 (67) 98 11/07/18 08:30 75 18 98 Facial 40 11/07/18 08:00 78 14 124/39 (67) 98 11/07/18 08:00 78 11/07/18 08:00 Bi-pap 11/07/18 07:00 78 13 107/42 (63) 98 3/23/19 06:45 88 20 96 Full Face 40 11/07/18 06:00 98.9 81 15 142/58 (86) 99 11/07/18 05:14 81 18 98 Full Face 40 11/07/18 05:00 78 10 132/61 (84) 98 11/07/18 04:00 80 18 118/59 (78) 99 11/07/18 04:00 Bi-pap 11/07/18 04:00 77 11/07/18 04:00 40.0 11/07/18 03:05 87 19 98 Full Face 40 11/07/18 03:00 81 18 152/77 (102) 97 11/07/18 02:00 85 13 167/76 (106) 98 11/07/18 01:10 86 20 98 Facial 40 11/07/18 01:00 84 17 142/108 (119) 99 11/07/18 00:00 97.8 87 15 136/62 (86) 98 11/07/18 00:00 40.0 11/07/18 00:00 87 11/07/18 00:00 Bi-pap 11/06/18 23:00 83 11 121/56 (77) 97 11/06/18 22:48 85 19 98 Facial 40 11/06/18 22:00 84 17 118/47 (70) 98 11/06/18 21:02 87 20 98 Facial 40 11/06/18 21:00 85 13 122/48 (72) 97 11/06/18 20:47 87 109/96 11/06/18 20:00 88 11/06/18 20:00 88 16 109/96 (100) 97 11/06/18 20:00 Bi-pap 11/06/18 20:00 40.0 11/06/18 19:00 98.1 87 20 140/51 (80) 98 11/06/18 18:56 87 20 98 Facial 40 11/06/18 18:00 86 13 146/50 (82) 97 11/06/18 17:14 87 25 98 Facial 40 Intake and Output 11/06/18 11/07/18 19:00 07:00 Intake Total 0 ml 622.5 ml Output Total 0 ml 2600 ml Balance 0 ml -1977.5 ml Intake Oral 0 ml IV Total 622.5 ml Output Urine Total 0 ml 0 ml Hemodialysis UF 2600 ml Laboratory Tests Test 11/07/18 03:40 11/07/18 08:42 White Blood Count 6.4 K/UL (4.8-10.8) Red Blood Count 5.29 M/UL (4.70-6.10) Hemoglobin 13.5 G/DL (14.2-18.0) L Hematocrit 45.2 % (42.0-52.0) Mean Corpuscular Volume 86 FL (80-99) Mean Corpuscular Hemoglobin 25.5 PG (27.0-31.0) L Mean Corpuscular Hemoglobin Concent 29.8 G/DL (32.0-36.0) L Red Cell Distribution Width 18.0 % (11.6-14.8) H Platelet Count 172 K/UL (150-450) Mean Platelet Volume 7.2 FL (6.5-10.1) Neutrophils (%) (Auto) 73.3 % (45.0-75.0) Lymphocytes (%) (Auto) 17.9 % (20.0-45.0) L Monocytes (%) (Auto) 8.0 % (1.0-10.0) Eosinophils (%) (Auto) 0.0 % (0.0-3.0) Basophils (%) (Auto) 0.8 % (0.0-2.0) Sodium Level 139 MMOL/L (136-145) Potassium Level 4.7 MMOL/L (3.5-5.1) Chloride Level 97 MMOL/L (98-107) L Carbon Dioxide Level 34 MMOL/L (21-32) H Anion Gap 8 mmol/L (5-15) Blood Urea Nitrogen 41 mg/dL (7-18) H Creatinine 6.6 MG/DL (0.55-1.30) H Estimat Glomerular Filtration Rate 8.4 mL/min (>60) Glucose Level 109 MG/DL (74-106) H Uric Acid 4.2 MG/DL (2.6-7.2) Calcium Level 9.3 MG/DL (8.5-10.1) Phosphorus Level 6.4 MG/DL (2.5-4.9) H Magnesium Level 2.0 MG/DL (1.8-2.4) Total Bilirubin 0.4 MG/DL (0.2-1.0) Aspartate Amino Transf (AST/SGOT) 15 U/L (15-37) Alanine Aminotransferase (ALT/SGPT) 14 U/L (12-78) Alkaline Phosphatase 89 U/L (46-116) Troponin I 0.137 ng/mL (0.000-0.056) C-Reactive Protein, Quantitative 9.5 mg/dL (0.00-0.90) H Pro-B-Type Natriuretic Peptide > 70325 pg/mL (0-125) H Total Protein 7.5 G/DL (6.4-8.2) Albumin 3.0 G/DL (3.4-5.0) L Globulin 4.5 g/dL Albumin/Globulin Ratio 0.7 (1.0-2.7) L Vitamin B12 Level 723 PG/ML (193-986) Folate 18.6 NG/ML (8.6-58.9) Random Vancomycin Level 13.5 ug/mL Arterial Blood pH 7.331 (7.350-7.450) Arterial Blood Partial Pressure CO2 65.5 mmHg (35.0-45.0) *H Arterial Blood Partial Pressure O2 96.6 mmHg (75.0-100.0) Arterial Blood HCO3 33.8 mmol/L (22.0-26.0) H Arterial Blood Oxygen Saturation 96.8 % (95-100) Arterial Blood Base Excess 5.8 (-2-2) H Mino Test Positive Objective HEAD AND NECK: No JVD.On BIPAP LUNGS: Coarse rhonchi. CARDIOVASCULAR: Regular S1 and S2 with no gallop. Sternotomy is intact and pacemaker in the right chest. ABDOMEN: Soft. EXTREMITIES: 1+ pitting edema Shivam Sharpe MD Nov 07, 2018 17:02
[2018-11-07] MEDS ORDERED: Vancomycin 1 GM in D5W 275 ML IVPB ONE (18:00)
--- NOTE | 2018-11-07 19:51 | Pulmonolgy Critical Care Note ---
Critical Care - Asmt/Plan Assessment/Plan: 1. No SVC syndrome on CTA 2. End-stage renal disease, on dialysis, status post multiple upper extremity vascular procedures. 3. Coronary artery bypass surgery. 4. Diabetes. 5. Dysphonia, tongue swelling 6. Resp failure, hypercapneic; now in ICU on BiPAP 7. macroglossia PLAN: bipap for now abg ENT eval pending nebs supplemental o2 npo due to high risk of aspiration pressors if MAP less than 65 mmgh Atelectasis and effusions noted ABG with resp acidosis - = HD per renal Respiratory: adjust tidal volume, CXR, ABG Cardiac: continue to monitor HR/BP Infectious Disease: check cultures, continue antibiotics Hematologic: monitor H/H Prophylaxis: Protonix Time Spent (Minutes): 50 Critical Care - Objective Last 24 Hour Vital Signs Date Time Temp Pulse Resp B/P (MAP) Pulse Ox O2 Delivery O2 Flow Rate FiO2 11/07/18 19:00 81 18 136/39 (71) 98 11/07/18 18:57 78 19 100 Facial 40 11/07/18 18:00 82 22 149/48 (81) 99 11/07/18 17:00 97.8 81 15 148/40 (76) 99 11/07/18 16:50 82 19 96 Facial 40 11/07/18 16:00 40.0 11/07/18 16:00 82 22 154/37 (76) 99 11/07/18 16:00 82 11/07/18 16:00 Bi-pap 11/07/18 15:11 83 22 99 Facial 40 11/07/18 15:00 80 24 138/39 (72) 99 11/07/18 14:00 82 24 148/34 (72) 99 11/07/18 13:00 98.2 81 15 142/54 (83) 99 11/07/18 12:30 71 18 96 Facial 40 11/07/18 12:00 Bi-pap 11/07/18 12:00 40.0 11/07/18 12:00 82 17 158/49 (85) 99 11/07/18 12:00 81 11/07/18 11:00 83 24 142/52 (82) 99 11/07/18 10:43 81 20 99 Facial 40 11/07/18 10:00 79 12 119/52 (74) 98 11/07/18 09:00 82 123/49 11/07/18 09:00 79 13 131/36 (67) 98 11/07/18 08:30 75 18 98 Facial 40 11/07/18 08:00 78 14 124/39 (67) 98 11/07/18 08:00 78 11/07/18 08:00 Bi-pap 11/07/18 07:00 78 13 107/42 (63) 98 11/07/18 06:45 88 20 96 Full Face 40 11/07/18 06:00 98.9 81 15 142/58 (86) 99 11/07/18 05:14 81 18 98 Full Face 40 11/07/18 05:00 78 10 132/61 (84) 98 11/07/18 04:00 80 18 118/59 (78) 99 11/07/18 04:00 Bi-pap 11/07/18 04:00 77 11/07/18 04:00 40.0 11/07/18 03:05 87 19 98 Full Face 40 11/07/18 03:00 81 18 152/77 (102) 97 11/07/18 02:00 85 13 167/76 (106) 98 11/07/18 01:10 86 20 98 Facial 40 11/07/18 01:00 84 17 142/108 (119) 99 11/07/18 00:00 97.8 87 15 136/62 (86) 98 11/07/18 00:00 40.0 11/07/18 00:00 87 11/07/18 00:00 Bi-pap 11/06/18 23:00 83 11 121/56 (77) 97 11/06/18 22:48 85 19 98 Facial 40 11/06/18 22:00 84 17 118/47 (70) 98 11/06/18 21:02 87 20 98 Facial 40 11/06/18 21:00 85 13 122/48 (72) 97 11/06/18 20:47 87 109/96 11/06/18 20:00 88 11/06/18 20:00 88 16 109/96 (100) 97 11/06/18 20:00 Bi-pap 11/06/18 20:00 40.0 Status: awake Condition: critical Lungs: rhonchi Heart: HR/BP stable Abdomen: soft, non-tender Extremities: edema Accucheck: 160 Critical Care - Subjective ROS Limited/Unobtainable: Yes Condition: critical EKG Rhythm: Sinus Rhythm FI02: 40 Sputum Amount: None I&O: Intake and Output 11/06/18 11/07/18 18:59 06:59 Intake Total 0 ml 572.5 ml Output Total 0 ml 2600 ml Balance 0 ml -2027.5 ml Intake Oral 0 ml IV Total 572.5 ml Output Urine Total 0 ml 0 ml Hemodialysis UF 2600 ml Subjective: noted iwth signfiicant tongue swelling and unablet o take po. currently on bipap no distress sats stable cough difficult wtih secretions no vp of digital [employer] nv or bleedign not getting oob CXR: no new cxr ct 10/08 reivewed Labs: Laboratory Tests Test 11/07/18 03:40 11/07/18 08:42 White Blood Count 6.4 K/UL (4.8-10.8) Red Blood Count 5.29 M/UL (4.70-6.10) Hemoglobin 13.5 G/DL (14.2-18.0) L Hematocrit 45.2 % (42.0-52.0) Mean Corpuscular Volume 86 FL (80-99) Mean Corpuscular Hemoglobin 25.5 PG (27.0-31.0) L Mean Corpuscular Hemoglobin Concent 29.8 G/DL (32.0-36.0) L Red Cell Distribution Width 18.0 % (11.6-14.8) H Platelet Count 172 K/UL (150-450) Mean Platelet Volume 7.2 FL (6.5-10.1) Neutrophils (%) (Auto) 73.3 % (45.0-75.0) Lymphocytes (%) (Auto) 17.9 % (20.0-45.0) L Monocytes (%) (Auto) 8.0 % (1.0-10.0) Eosinophils (%) (Auto) 0.0 % (0.0-3.0) Basophils (%) (Auto) 0.8 % (0.0-2.0) Sodium Level 139 MMOL/L (136-145) Potassium Level 4.7 MMOL/L (3.5-5.1) Chloride Level 97 MMOL/L (98-107) L Carbon Dioxide Level 34 MMOL/L (21-32) H Anion Gap 8 mmol/L (5-15) Blood Urea Nitrogen 41 mg/dL (7-18) H Creatinine 6.6 MG/DL (0.55-1.30) H Estimat Glomerular Filtration Rate 8.4 mL/min (>60) Glucose Level 109 MG/DL (74-106) H Uric Acid 4.2 MG/DL (2.6-7.2) Calcium Level 9.3 MG/DL (8.5-10.1) Phosphorus Level 6.4 MG/DL (2.5-4.9) H Magnesium Level 2.0 MG/DL (1.8-2.4) Total Bilirubin 0.4 MG/DL (0.2-1.0) Aspartate Amino Transf (AST/SGOT) 15 U/L (15-37) Alanine Aminotransferase (ALT/SGPT) 14 U/L (12-78) Alkaline Phosphatase 89 U/L (46-116) Troponin I 0.137 ng/mL (0.000-0.056) C-Reactive Protein, Quantitative 9.5 mg/dL (0.00-0.90) H Pro-B-Type Natriuretic Peptide > 56397 pg/mL (0-125) H Total Protein 7.5 G/DL (6.4-8.2) Albumin 3.0 G/DL (3.4-5.0) L Globulin 4.5 g/dL Albumin/Globulin Ratio 0.7 (1.0-2.7) L Vitamin B12 Level 723 PG/ML (193-986) Folate 18.6 NG/ML (8.6-58.9) Random Vancomycin Level 13.5 ug/mL Arterial Blood pH 7.331 (7.350-7.450) Arterial Blood Partial Pressure CO2 65.5 mmHg (35.0-45.0) *H Arterial Blood Partial Pressure O2 96.6 mmHg (75.0-100.0) Arterial Blood HCO3 33.8 mmol/L (22.0-26.0) H Arterial Blood Oxygen Saturation 96.8 % (95-100) Arterial Blood Base Excess 5.8 (-2-2) H Mino Test Positive Current Medications Medications (Trade) Dose Ordered Sig/Aleks Route PRN Reason Start Time Stop Time Status Last Admin Dose Admin Acetaminophen (Tylenol) 650 mg Q4H PRN ORAL Mild Pain/Temp > 100.5 11/05/18 22:45 11/30/18 22:44 Aspirin (Ecotrin) 81 mg DAILY ORAL 11/06/18 09:00 12/03/18 08:59 11/06/18 08:25 Atorvastatin Calcium (Lipitor) 10 mg BEDTIME ORAL 11/06/18 21:00 12/02/18 20:59 Carvedilol (Coreg) 6.25 mg EVERY 12 HOURS ORAL 11/06/18 09:00 12/01/18 08:59 11/06/18 08:26 Chlorhexidine Gluconate (Glo-Hex 2%) 1 applic DAILY@2000 TOPIC 11/06/18 20:00 12/05/18 19:59 11/07/18 19:52 Dextrose 1,000 ml @ 50 mls/hr Q20H IV 11/06/18 18:30 12/06/18 18:29 11/07/18 12:47 Dextrose (Dextrose 50%) 25 ml Q30M PRN IV Hypoglycemia 11/05/18 22:15 11/30/18 22:44 11/06/18 15:46 Dextrose (Dextrose 50%) 50 ml Q30M PRN IV Hypoglycemia 11/05/18 22:15 11/30/18 22:44 Insulin Aspart (NovoLOG) BEFORE MEALS AND HS SUBQ 11/06/18 06:30 12/01/18 06:29 Midodrine (Pro-Amatine) 2.5 mg TID ORAL 11/06/18 09:00 12/01/18 11:59 11/06/18 08:26 Nicotine (Nicoderm) 1 patch Q24H TDERMAL 11/05/18 22:15 12/01/18 22:14 11/06/18 23:03 Pantoprazole (Protonix) 40 mg EVERY 12 HOURS IVP 11/06/18 21:00 12/06/18 20:59 11/07/18 09:00 Tacrolimus (Prograf) 2 mg MoWeFr@0000,1200 ORAL 11/06/18 00:00 12/02/18 00:00 Tacrolimus (Prograf) 2 mg SuTuThSa@0900,2100 ORAL 11/07/18 09:00 12/01/18 20:59 Christina Perez DO Nov 07, 2018 19:51
[2018-11-07] MEDS: Dyna-Hex 2% Top Sol 2oz TOPIC SCH (19:52)
--- NOTE | 2018-11-07 20:45 | Progress Note ---
DATE: 11/07/2018 NOTE: "POOR AUDIO QUALITY" SUBJECTIVE: This is an elderly male, currently slightly better today. Blood pressure is also fluctuating, very very low to low, but the patient is asymptomatic. He is still on BiPAP and txin-[id number]-mrufmbdd short of breath. He became hypoxic when the nurse tried to take the BiPAP. His tongue swelling is better also. Pocketing the food. OBJECTIVE: VITAL SIGNS: He is in ICU. Blood pressure 142/52, pulse 83, respirations , and on 40% oxygen, saturation 99%. SKIN: skin turgor. HEENT: Eyes are open. NECK: Supple. CHEST: Bilateral few crackles. Decreased breath sounds. CARDIOVASCULAR: Regular rhythm. ABDOMEN: Soft. EXTREMITIES: No CCE. NEUROLOGICAL: Generalized weakness. LABORATORY EXAMINATION: ABG, pH 7.33 and is better than yesterday, pCO2 of 65, pO2 is 96, bicarbonate 33, saturation 96%. Chemistry panel, sodium 139, potassium 4.7, glucose 109, uric acid 4.2, creatinine 6.46. His hematology lab, white count 6.4, hemoglobin 13.2. His chest x-ray, marked ascites . ASSESSMENT: 1. Acute respiratory failure. 2. Recurrent swelling. 3. Hypotension. 4. End-stage renal disease. 5. Anemia, is improved. PLAN: We will currently continue IV steroid, continue BiPAP. Discussed with charge nurse. We will start ice chips and . Continue rest of the medication. Continue tacrolimus, Lipitor and continue PPIs and continue vancomycin. ID, Pulmonary, and Nephrology is on the case. Jamari Carter M.D. DR: Lilly JOB#: [id number] CC:
[2018-11-08] VITALS (25 sets, daily range): BP systolic 95–191; BP diastolic 30–119
[2018-11-08 06:02] LABS: BASOPHILS % (AUTO) 0.8 % (0.0-2.0); HEMATOCRIT 43.5 % (42.0-52.0); HEMOGLOBIN 13.1 G/DL (14.2-18.0); LYMPHOCYTES % (AUTO) 18.6 % (20.0-45.0); MEAN CORPUSCULAR VOLUME 85 FL (80-99); MONOCYTES % (AUTO) 8.6 % (1.0-10.0); PLATELET COUNT 178 K/UL (150-450); RED BLOOD COUNT 5.11 M/UL (4.70-6.10); RED CELL DISTRIBUTION WIDTH 18.5 % (11.6-14.8); WHITE BLOOD COUNT 6.8 K/UL (4.8-10.8)
[2018-11-08] MEDS: NovoLOG Insulin Flexpen SUBQ SCH ×4 (06:02→20:59)
[2018-11-08 06:32] LABS: ALANINE AMINOTRANSFERASE 12 U/L (12-78); ALBUMIN 3.1 G/DL (3.4-5.0); ALBUMIN/GLOBULIN RATIO 0.7 (1.0-2.7); ALKALINE PHOSPHATASE 88 U/L (46-116); ANION GAP 10 mmol/L (5-15); ASPARTATE AMINO TRANSFERASE 16 U/L (15-37); BILIRUBIN,TOTAL 0.5 MG/DL (0.2-1.0); BLOOD UREA NITROGEN 56 mg/dL (7-18); CALCIUM 9.3 MG/DL (8.5-10.1); CARBON DIOXIDE 31 MMOL/L (21-32); CHLORIDE 93 MMOL/L (98-107); CREATININE 8.2 MG/DL (0.55-1.30); POTASSIUM 4.9 MMOL/L (3.5-5.1); SODIUM 134 MMOL/L (136-145)
[2018-11-08] MEDS: Pantoprazole Inj IVP SCH ×2 (08:37→20:54)
[2018-11-08] MEDS: Aspirin EC 81mg tab ORAL SCH ×2 (08:41→08:46)
[2018-11-08] MEDS: Carvedilol 6.25mg Tab ORAL SCH ×3 (08:41→20:55)
--- NOTE | 2018-11-08 09:48 | Diagnostic Imaging Report ---
EXAM: XR Chest, 1 View CLINICAL HISTORY: COPD TECHNIQUE: Frontal view of the chest. COMPARISON: CT chest 11/05/18, chest x-ray 10/31/18 FINDINGS: Lungs: Similar bilateral interstitial and airspace opacities. Pleural space: Stable moderate right pleural effusion. No pneumothorax. Heart: Cardiomegaly. Mediastinum: Unremarkable. Bones/joints: Median sternotomy. Tubes, lines and devices: Right-sided cardiac pacemaker. IMPRESSION: 1. No significant interval change from the prior CT chest.
[2018-11-08] MEDS ORDERED: Hydrocortisone 100mg Inj IV SCH (11:30)
[2018-11-08] MEDS ORDERED: fentaNYL 100 mcg/2 mL IV SCH (13:30)
--- NOTE | 2018-11-08 14:04 | Nephrology Progress Note ---
Assessment/Plan Problem List: (1) ESRD (end stage renal disease) on dialysis (2) Foot ulcer (3) CHF (congestive heart failure) (4) Pacemaker (5) Acute respiratory failure Assessment: with Co2 retention Assessment ESRD with high K and SOB Foot ulcer, likely infected High Troponin likely NSTMI Pacer , Pleural effusion s/p CABGS s/p Liver transplant Plan Plan; discussed with Dr Mendoza 11/06 DC unnecessary pills as patient NPO One dose of solumedrol 11/06 and again 11/08 continue BIPAP - retains CO2 check ABG s repeat dialysis 11/06 as patient received Contrast with CT I adjust Vanco dosages Redose Vanco 11/07 Vanco level 11/08 TTS2 for high BP ENT eval per cardio and ID try Kayexelate as needed Poor Prognosis Podiatry and Vascular surgical eval Subjective ROS Limited/Unobtainable: No Constitutional: Reports: malaise Objective Objective Last 24 Hour Vital Signs Date Time Temp Pulse Resp B/P (MAP) Pulse Ox O2 Delivery O2 Flow Rate FiO2 11/08/18 12:52 82 17 100 Full Face 40 11/08/18 11:00 80 20 100 Full Face 40 11/08/18 11:00 81 19 174/38 (83) 99 11/08/18 10:00 83 17 191/119 (143) 99 11/08/18 09:11 80 19 98 Full Face 40 11/08/18 09:00 81 18 173/73 (106) 99 11/08/18 08:00 98.2 84 18 160/56 (90) 99 11/08/18 08:00 40 11/08/18 08:00 Bi-pap 11/08/18 08:00 84 11/08/18 07:27 82 18 98 Full Face 40 11/08/18 07:00 82 21 152/71 (98) 98 11/08/18 06:00 82 17 146/63 (90) 98 11/08/18 05:08 83 22 99 Full Face 40 11/08/18 05:00 82 14 160/56 (90) 97 11/08/18 04:35 82 15 158/41 (80) 100 11/08/18 04:00 40 11/08/18 04:00 Bi-pap 11/08/18 04:00 97.7 82 24 185/61 (102) 99 11/08/18 04:00 82 11/08/18 03:10 82 20 99 Full Face 40 11/08/18 03:00 84 16 147/49 (81) 100 11/08/18 02:00 81 19 147/58 (87) 98 11/08/18 01:17 80 22 100 Full Face 40 11/08/18 01:00 80 16 118/60 (79) 99 11/08/18 00:22 80 11/08/18 00:00 40 11/08/18 00:00 Bi-pap 11/08/18 00:00 98.0 80 18 154/76 (102) 99 11/07/18 23:00 73 20 133/54 (80) 99 11/07/18 22:48 73 20 100 Full Face 40 11/07/18 22:00 80 15 116/74 (88) 98 11/07/18 21:00 82 145/72 11/07/18 21:00 82 19 149/45 (79) 98 11/07/18 20:53 77 19 98 Full Face 40 11/07/18 20:00 97.8 82 18 114/51 (72) 97 11/07/18 20:00 Bi-pap 11/07/18 20:00 40 11/07/18 19:41 81 11/07/18 19:00 81 18 136/39 (71) 98 11/07/18 18:57 78 19 100 Facial 40 11/07/18 18:00 82 22 149/48 (81) 99 11/07/18 17:00 97.8 81 15 148/40 (76) 99 11/07/18 16:50 82 19 96 Facial 40 11/07/18 16:00 40.0 11/07/18 16:00 82 22 154/37 (76) 99 11/07/18 16:00 82 11/07/18 16:00 Bi-pap 11/07/18 15:11 83 22 99 Facial 40 11/07/18 15:00 80 24 138/39 (72) 99 Intake and Output 11/07/18 11/08/18 19:00 07:00 Intake Total 733.708 ml 641.292 ml Output Total 0 ml 0 ml Balance 733.708 ml 641.292 ml IV Total 733.708 ml 641.292 ml Output Urine Total 0 ml 0 ml Laboratory Tests 11/08/18 04:50: White Blood Count 6.8, Red Blood Count 5.11, Hemoglobin 13.1L, Hematocrit 43.5, Mean Corpuscular Volume 85, Mean Corpuscular Hemoglobin 25.6L, Mean Corpuscular Hemoglobin Concent 30.1L, Red Cell Distribution Width 18.5H, Platelet Count 178 , Mean Platelet Volume 7.0, Neutrophils (%) (Auto) 72.0, Lymphocytes (%) (Auto) 18.6L, Monocytes (%) (Auto) 8.6, Eosinophils (%) (Auto) 0.0, Basophils (%) (Auto ) 0.8, Sodium Level 134L, Potassium Level 4.9, Chloride Level 93L, Carbon Dioxide Level 31, Anion Gap 10, Blood Urea Nitrogen 56H, Creatinine 8.2H, Estimat Glomerular Filtration Rate 6.6, Glucose Level 109H, Uric Acid 5.8, Calcium Level 9.3, Phosphorus Level 7.0H, Magnesium Level 1.9, Total Bilirubin 0.5, Aspartate Amino Transf (AST/SGOT) 16, Alanine Aminotransferase (ALT/SGPT) 12, Alkaline Phosphatase 88, Total Protein 7.4, Albumin 3.1L, Globulin 4.3, Albumin/Globulin Ratio 0.7L, Cryptococcus Antigen [Pending], Cytomegalovirus DNA PCR copies/ml [Pending], Cytomegalovirus DNA PCR log10 [Pending] 11/08/18 09:03: Arterial Blood pH 7.346L, Arterial Blood Partial Pressure CO2 51.3H, Arterial Blood Partial Pressure O2 53.0L, Arterial Blood HCO3 27.4H, Arterial Blood Oxygen Saturation 83.8*L, Arterial Blood Base Excess 1.0, Mino Test Positive Height (Feet): 5 Height (Inches): 10.00 Weight (Pounds): 200 EENT: other - tongue swelling Cardiovascular: normal rate Respiratory/Chest: decreased breath sounds, other - on bipap Abdomen: distended Objective no change Nakul Stevens MD Nov 08, 2018 14:04
--- NOTE | 2018-11-08 15:01 | Brief Operative Note ---
Immediate Post Operative Note Operative Note Pre-op Diagnosis: airway compromise; swollen tongue; critical care Procedure: 1. emergency tracheostomy 2. left femoral central venous catheter insertion 3. bronchoscopy Post-op Diagnosis: same as pre-op Surgeon: lulu Anesthesiologist: fentanyl and versed Anesthesia: local, moderate sedation Specimen: none Complications: none Condition: stable Fluids: n/a Estimated Blood Loss: minimal Drains: none Implant(s) used?: Jerman Luong Nov 08, 2018 15:01
--- NOTE | 2018-11-08 15:11 | Consultation ---
History of Present Illness General Chief Complaint: Skin Rash/Abscess Reason for Consultation: airway compromise ; venous access Present Illness HPI This is a 68-year-old male who is currently in the intensive care unit [facility], [place] with respiratory compromise. Patient was initially admitted a few days ago with complaints of worsening right heel pain and during admission began to develop a swollen tongue and throat. Patient was transferred to the intensive care unit for care at which time began to require increasing oxygen requirement and eventually BiPAP. His blood gases have been poor and his airway compromise became concerning therefore I was called to emergently evaluate. Patient seen in the ICU immediately and evaluated at which time he was unable to speak and had difficulty with respirations. Patient's family is at bedside. Patient unable to provide history. Family able to provide history. Patient seen, patient evaluated, chart reviewed. Patient with extensive past medical history and surgical history including but not limited to CABG, liver transplant, pacemaker, ESRD on hemodialysis, matured left upper extremity AV fistula, immature right upper extremity AV fistula. Allergies: Coded Allergies: CEPHALEXIN (Unverified Allergy, Unknown, 02/24/14) SULFAMETHOXAZOLE (Unverified Allergy, Unknown, 02/24/14) TRIMETHOPRIM (Unverified Allergy, Unknown, 02/24/14) Medication History Scheduled Allopurinol* (Allopurinol*), 100 MG ORAL DAILY, (Reported) Calcium Acetate (Calcium Acetate), 667 MG PO BID, (Reported) Carvedilol* (Carvedilol*), 6.25 MG ORAL EVERY 12 HOURS, (Reported) Midodrine (Midodrine HCl), 5 MG ORAL BEFORE MEALS, (Reported) Nateglinide (Starlix), 120 MG ORAL THREE TIMES A DAY, (Reported) Omeprazole (Omeprazole), 20 MG ORAL BID, (Reported) Rosuvastatin Calcium* (Crestor*), 10 MG ORAL HS, (Reported) Tacrolimus (Tacrolimus), 2 MG PO BID, (Reported) Telmisartan (Telmisartan), 10 MG PO at noon, (Reported) Torsemide* (Demadex*), 100 MG PO DAILY, (Reported) Vitamin B Cmplx/Vit C/Folic AC (Nephro-Lexii Tablet), 1 TAB ORAL DAILY, (Reported ) Scheduled PRN Oxycodone/Acetaminophen 5-325* (Percocet 5-325 Mg Tablet*), 1 TAB ORAL Q4H PRN for For Pain, (Reported) Discontinued Medications Diphenhydramine Hcl* (Benadryl*), 25 MG ORAL Q6H PRN for Itching Discontinued Reason: MD discontinued med Patient History Limited by: medical condition History Provided By: Family Member, Medical Record, PMD 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 (8) Rash and other nonspecific skin eruption (9) NSTEMI (non-ST elevated myocardial infarction) (10) ESRD (end stage renal disease) on dialysis (11) Elevated troponin (12) Foot ulcer (13) DM (diabetes mellitus) (14) CHF (congestive heart failure) (15) Pacemaker (16) Elevated troponin and foot ulcer (17) Cellulitis, abdominal wall (18) Encephalopathy acute (19) Pericardial effusion (20) Tachycardia (21) Sepsis (22) HTN (hypertension) (23) Severe tongue swelling (24) Severe tongue swelling Review of Systems ROS Narrative Unable to obtain given patient's current medical condition Physical Exam General Appearance: mild distress, moderate distress Lines, tubes and drains: peripheral HEENT: EOMI, thrush, tonsils swollen, other Neck: normal inspection Respiratory/Chest: decreased breath sounds, accessory muscle use Cardiovascular/Chest: tachycardia Abdomen: soft, no organomegaly, no mass, other Extremities: other Skin Exam: warm/dry, rash Neurologic: alert, responsive Last 24 Hour Vital Signs Date Time Temp Pulse Resp B/P (MAP) Pulse Ox O2 Delivery O2 Flow Rate FiO2 11/08/18 14:45 73 18 100 11/08/18 12:52 82 17 100 Full Face 40 11/08/18 11:00 80 20 100 Full Face 40 11/08/18 11:00 81 19 174/38 (83) 99 11/08/18 10:00 83 17 191/119 (143) 99 11/08/18 09:11 80 19 98 Full Face 40 11/08/18 09:00 81 18 173/73 (106) 99 11/08/18 08:00 98.2 84 18 160/56 (90) 99 11/08/18 08:00 40 11/08/18 08:00 Bi-pap 11/08/18 08:00 84 11/08/18 07:27 82 18 98 Full Face 40 11/08/18 07:00 82 21 152/71 (98) 98 11/08/18 06:00 82 17 146/63 (90) 98 11/08/18 05:08 83 22 99 Full Face 40 11/08/18 05:00 82 14 160/56 (90) 97 11/08/18 04:35 82 15 158/41 (80) 100 11/08/18 04:00 40 11/08/18 04:00 Bi-pap 11/08/18 04:00 97.7 82 24 185/61 (102) 99 11/08/18 04:00 82 11/08/18 03:10 82 20 99 Full Face 40 11/08/18 03:00 84 16 147/49 (81) 100 11/08/18 02:00 81 19 147/58 (87) 98 11/08/18 01:17 80 22 100 Full Face 40 11/08/18 01:00 80 16 118/60 (79) 99 11/08/18 00:22 80 11/08/18 00:00 40 11/08/18 00:00 Bi-pap 11/08/18 00:00 98.0 80 18 154/76 (102) 99 11/07/18 23:00 73 20 133/54 (80) 99 11/07/18 22:48 73 20 100 Full Face 40 11/07/18 22:00 80 15 116/74 (88) 98 11/07/18 21:00 82 145/72 11/07/18 21:00 82 19 149/45 (79) 98 11/07/18 20:53 77 19 98 Full Face 40 11/07/18 20:00 97.8 82 18 114/51 (72) 97 11/07/18 20:00 Bi-pap 11/07/18 20:00 40 11/07/18 19:41 81 11/07/18 19:00 81 18 136/39 (71) 98 11/07/18 18:57 78 19 100 Facial 40 11/07/18 18:00 82 22 149/48 (81) 99 11/07/18 17:00 97.8 81 15 148/40 (76) 99 11/07/18 16:50 82 19 96 Facial 40 11/07/18 16:00 40.0 11/07/18 16:00 82 22 154/37 (76) 99 11/07/18 16:00 82 11/07/18 16:00 Bi-pap 11/07/18 15:11 83 22 99 Facial 40 Intake and Output 11/07/18 11/08/18 19:00 07:00 Intake Total 733.708 ml 641.292 ml Output Total 0 ml 0 ml Balance 733.708 ml 641.292 ml IV Total 733.708 ml 641.292 ml Output Urine Total 0 ml 0 ml Laboratory Tests Test 11/08/18 04:50 11/08/18 09:03 White Blood Count 6.8 K/UL (4.8-10.8) Red Blood Count 5.11 M/UL (4.70-6.10) Hemoglobin 13.1 G/DL (14.2-18.0) L Hematocrit 43.5 % (42.0-52.0) Mean Corpuscular Volume 85 FL (80-99) Mean Corpuscular Hemoglobin 25.6 PG (27.0-31.0) L Mean Corpuscular Hemoglobin Concent 30.1 G/DL (32.0-36.0) L Red Cell Distribution Width 18.5 % (11.6-14.8) H Platelet Count 178 K/UL (150-450) Mean Platelet Volume 7.0 FL (6.5-10.1) Neutrophils (%) (Auto) 72.0 % (45.0-75.0) Lymphocytes (%) (Auto) 18.6 % (20.0-45.0) L Monocytes (%) (Auto) 8.6 % (1.0-10.0) Eosinophils (%) (Auto) 0.0 % (0.0-3.0) Basophils (%) (Auto) 0.8 % (0.0-2.0) Sodium Level 134 MMOL/L (136-145) L Potassium Level 4.9 MMOL/L (3.5-5.1) Chloride Level 93 MMOL/L (98-107) L Carbon Dioxide Level 31 MMOL/L (21-32) Anion Gap 10 mmol/L (5-15) Blood Urea Nitrogen 56 mg/dL (7-18) H Creatinine 8.2 MG/DL (0.55-1.30) H Estimat Glomerular Filtration Rate 6.6 mL/min (>60) Glucose Level 109 MG/DL (74-106) H Uric Acid 5.8 MG/DL (2.6-7.2) Calcium Level 9.3 MG/DL (8.5-10.1) Phosphorus Level 7.0 MG/DL (2.5-4.9) H Magnesium Level 1.9 MG/DL (1.8-2.4) Total Bilirubin 0.5 MG/DL (0.2-1.0) Aspartate Amino Transf (AST/SGOT) 16 U/L (15-37) Alanine Aminotransferase (ALT/SGPT) 12 U/L (12-78) Alkaline Phosphatase 88 U/L (46-116) Total Protein 7.4 G/DL (6.4-8.2) Albumin 3.1 G/DL (3.4-5.0) L Globulin 4.3 g/dL Albumin/Globulin Ratio 0.7 (1.0-2.7) L Cryptococcus Antigen Pending Cytomegalovirus DNA PCR copies/ml Pending Cytomegalovirus DNA PCR log10 Pending Arterial Blood pH 7.346 (7.350-7.450) Arterial Blood Partial Pressure CO2 51.3 mmHg (35.0-45.0) H Arterial Blood Partial Pressure O2 53.0 mmHg (75.0-100.0) L Arterial Blood HCO3 27.4 mmol/L (22.0-26.0) H Arterial Blood Oxygen Saturation 83.8 % (95-100) *L Arterial Blood Base Excess 1.0 (-2-2) Mino Test Positive Height (Feet): 5 Height (Inches): 10.00 Weight (Pounds): 200 Medications Current Medications Medications (Trade) Dose Ordered Sig/Aleks Route PRN Reason Start Time Stop Time Status Last Admin Dose Admin Acetaminophen (Tylenol) 650 mg Q4H PRN ORAL Mild Pain/Temp > 100.5 11/05/18 22:45 11/30/18 22:44 Aspirin (Ecotrin) 81 mg DAILY ORAL 11/06/18 09:00 4/18/19 08:59 11/06/18 08:25 Atorvastatin Calcium (Lipitor) 10 mg BEDTIME ORAL 11/06/18 21:00 12/02/18 20:59 Carvedilol (Coreg) 6.25 mg EVERY 12 HOURS ORAL 11/06/18 09:00 12/01/18 08:59 11/06/18 08:26 Chlorhexidine Gluconate (Glo-Hex 2%) 1 applic DAILY@2000 TOPIC 11/06/18 20:00 12/05/18 19:59 11/07/18 19:52 Clonidine HCl (Catapres TTS-2) 1 patch QWEEK TDERMAL 11/08/18 15:00 12/08/18 14:59 Dextrose 1,000 ml @ 50 mls/hr Q20H IV 11/06/18 18:30 12/06/18 18:29 11/08/18 10:16 Dextrose (Dextrose 50%) 25 ml Q30M PRN IV Hypoglycemia 11/05/18 22:15 11/30/18 22:44 11/06/18 15:46 Dextrose (Dextrose 50%) 50 ml Q30M PRN IV Hypoglycemia 11/05/18 22:15 11/30/18 22:44 Fentanyl Citrate (Sublimaze 100 mcg/2 mL) 100 mcg ONCE IV 11/08/18 13:30 11/08/18 15:30 Hydralazine HCl (Apresoline) 10 mg Q6H PRN IV For High Blood Pressure 11/08/18 13:15 12/08/18 13:14 Insulin Aspart (NovoLOG) BEFORE MEALS AND HS SUBQ 11/06/18 06:30 12/01/18 06:29 11/08/18 11:47 Nicotine (Nicoderm) 1 patch Q24H TDERMAL 11/05/18 22:15 12/01/18 22:14 11/07/18 21:43 Pantoprazole (Protonix) 40 mg EVERY 12 HOURS IVP 11/06/18 21:00 12/06/18 20:59 11/08/18 08:37 Tacrolimus (Prograf) 2 mg MoWeFr@0000,1200 ORAL 11/06/18 00:00 12/02/18 00:00 Tacrolimus (Prograf) 2 mg SuTuThSa@0900,2100 ORAL 11/07/18 09:00 12/01/18 20:59 Assessment/Plan Problem List: (1) Acute respiratory failure Assessment & Plan: Acute respiratory failure, swollen tongue, airway compromise Recommended tracheostomy emergently for airway protection discussed with patient and family at bedside and consent was obtained from both the patient as well as the son who is a power of bankruptcy attorney. Please see operative dictation. ICD Codes: J96.00 - Acute respiratory failure, unspecified whether with hypoxia or hypercapnia SNOMED: 96514119 (2) Ground glass opacity present on imaging of lung ICD Codes: R91.8 - Other nonspecific abnormal finding of lung field SNOMED: 058761697 (3) Pleural effusion ICD Codes: J90 - Pleural effusion, not elsewhere classified SNOMED: 70718262 (4) Hyperkalemia ICD Codes: E87.5 - Hyperkalemia SNOMED: 01487028 (5) Renal failure ICD Codes: N19 - Renal failure SNOMED: 48781012 (6) Altered level of consciousness ICD Codes: R40.4 - Transient alteration of awareness SNOMED: 5712410 (7) blood culture: gram negative rods. (8) Rash and other nonspecific skin eruption ICD Codes: R21 - Rash and other nonspecific skin eruption SNOMED: 604620867, 313643246 (9) NSTEMI (non-ST elevated myocardial infarction) ICD Codes: I21.4 - Non-ST elevation (NSTEMI) myocardial infarction SNOMED: 96159276 (10) ESRD (end stage renal disease) on dialysis ICD Codes: N18.6 - End stage renal disease; Z99.2 - Dependence on renal dialysis SNOMED: 025936468 (11) Elevated troponin ICD Codes: R74.8 - Abnormal levels of other serum enzymes SNOMED: 541790789, 813897447, 047772265 (12) Foot ulcer ICD Codes: L97.509 - Non-pressure chronic ulcer of other part of unspecified foot with unspecified severity SNOMED: 20020514 Qualifiers: Qualified Codes: L97.511 - Non-pressure chronic ulcer of other part of right foot limited to breakdown of skin (13) DM (diabetes mellitus) ICD Codes: E11.9 - Type 2 diabetes mellitus without complications SNOMED: 09171297 (14) CHF (congestive heart failure) ICD Codes: I50.9 - Heart failure, unspecified SNOMED: 63417590 (15) Pacemaker ICD Codes: Z95.0 - Presence of cardiac pacemaker SNOMED: 460272040 (16) Elevated troponin and foot ulcer (17) Cellulitis, abdominal wall ICD Codes: L03.311 - Cellulitis of abdominal wall SNOMED: 51200483 (18) Encephalopathy acute ICD Codes: G93.40 - Encephalopathy, unspecified SNOMED: 95849878, 935219635 (19) Pericardial effusion ICD Codes: I31.3 - Pericardial effusion (noninflammatory) SNOMED: 536569784 (20) Tachycardia ICD Codes: R00.0 - Tachycardia, unspecified SNOMED: 1877484 (21) Sepsis Assessment & Plan: Needs venous access. Patient end-stage renal disease on hemodialysis with left upper extremity AV fistula and newly created right upper extremity AV fistula. Patient furthermore patient has a pacemaker. He has not had a PICC line placed yet recommend femoral triple-lumen catheter ICD Codes: A41.9 - Sepsis, unspecified organism SNOMED: 33062899 (22) HTN (hypertension) ICD Codes: I10 - Essential (primary) hypertension SNOMED: 59102914 (23) Severe tongue swelling ICD Codes: R22.0 - Localized swelling, mass and lump, head SNOMED: 586256377 (24) Severe tongue swelling ICD Codes: R22.0 - Localized swelling, mass and lump, head SNOMED: 758492875 Jerman French Nov 08, 2018 15:11
[2018-11-08] MEDS: Morphine Sulfate 4mg/ml Inj (IV USE ONLY) IVP PRN (16:30)
[2018-11-08] MEDS: Dyna-Hex 2% Top Sol 2oz TOPIC SCH ×2 (20:00→20:54)
--- NOTE | 2018-11-08 21:16 | Infectious Diseases Prog Note ---
Assessment/Plan Problems: (1) Ground glass opacity present on imaging of lung Assessment & Plan: rule out atypical organisms in transplant patient , await fungal serology( crypt, cocci, histo, and aspergillosis ) and viral PCR for CMV and herpes . 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 bone scan ruled out osteomyelitis of the heel . will treat with vancomycin with HD for two weeks total (3) Cellulitis, abdominal wall Assessment & Plan: already on vancomycin improving (4) DM (diabetes mellitus) Assessment & Plan: recommend tight glycemic control to keep blood glucose between 100-140 (5) CHF (congestive heart failure) Assessment & Plan: on HD , renal is following, monitor daily weight (6) Encephalopathy acute Assessment & Plan: suspect metabolic, with high urea level, improving. (7) Severe tongue swelling Assessment & Plan: improving initially after steroids , but got worse today with respiratory compromise , had tracheostomy to protect his airway since respiratory status worsened . pulmonary is following (8) Pleural effusion Assessment & Plan: massive on the right, rule out infectious etiology, recommend thoracentesis and fluids to be sent for gram stain, culture, fungal and AFB, cytology and pathology Subjective ROS Limited/Unobtainable: Yes Allergies: Coded Allergies: CEPHALEXIN (Unverified Allergy, Unknown, 02/24/14) SULFAMETHOXAZOLE (Unverified Allergy, Unknown, 02/24/14) TRIMETHOPRIM (Unverified Allergy, Unknown, 02/24/14) Subjective he was trached emregently due to worsening respiratory failure , and was bronched, tolerated procedures well, repeated CXR no significant changes , awake and responsive, no fever or chills, no cough or phlegm , no SOB . Objective Vital Signs Last 24 Hour Vital Signs Date Time Temp Pulse Resp B/P (MAP) Pulse Ox O2 Delivery O2 Flow Rate FiO2 11/08/18 19:15 80 16 100 11/08/18 19:00 81 15 116/60 (78) 99 11/08/18 18:00 82 20 96/71 (79) 100 11/08/18 17:09 81 19 100 11/08/18 17:00 98.3 11/08/18 17:00 81 19 160/65 (96) 99 11/08/18 16:00 98.3 79 15 159/80 (106) 99 11/08/18 16:00 Bi-pap 11/08/18 16:00 80 11/08/18 16:00 50 11/08/18 15:38 145/97 11/08/18 15:00 78 14 145/97 (113) 99 11/08/18 14:45 73 18 100 11/08/18 14:30 50 11/08/18 14:00 76 18 169/71 (103) 100 11/08/18 13:00 82 19 160/88 (112) 98 11/08/18 12:52 82 17 100 Full Face 40 11/08/18 12:00 40 11/08/18 12:00 81 11/08/18 12:00 Bi-pap 11/08/18 12:00 98.3 81 17 183/45 (91) 99 11/08/18 11:00 80 20 100 Full Face 40 11/08/18 11:00 81 19 174/38 (83) 99 11/08/18 10:00 83 17 191/119 (143) 99 11/08/18 09:11 80 19 98 Full Face 40 11/08/18 09:00 81 18 173/73 (106) 99 11/08/18 08:00 98.2 84 18 160/56 (90) 99 11/08/18 08:00 40 11/08/18 08:00 Bi-pap 11/08/18 08:00 84 11/08/18 07:27 82 18 98 Full Face 40 11/08/18 07:00 82 21 152/71 (98) 98 11/08/18 06:00 82 17 146/63 (90) 98 11/08/18 05:08 83 22 99 Full Face 40 11/08/18 05:00 82 14 160/56 (90) 97 11/08/18 04:35 82 15 158/41 (80) 100 11/08/18 04:00 40 11/08/18 04:00 Bi-pap 11/08/18 04:00 97.7 82 24 185/61 (102) 99 11/08/18 04:00 82 11/08/18 03:10 82 20 99 Full Face 40 11/08/18 03:00 84 16 147/49 (81) 100 11/08/18 02:00 81 19 147/58 (87) 98 11/08/18 01:17 80 22 100 Full Face 40 11/08/18 01:00 80 16 118/60 (79) 99 11/08/18 00:22 80 11/08/18 00:00 40 11/08/18 00:00 Bi-pap 11/08/18 00:00 98.0 80 18 154/76 (102) 99 11/07/18 23:00 73 20 133/54 (80) 99 11/07/18 22:48 73 20 100 Full Face 40 11/07/18 22:00 80 15 116/74 (88) 98 Height (Feet): 5 Height (Inches): 10.00 Weight (Pounds): 200 General Appearance: WD/WN, no acute distress HEENT: atraumatic, anicteric, mucous membranes moist, PERRL, supple, no JVD, status post trach Respiratory/Chest: chest wall non-tender, normal breath sounds, no respiratory distress, no accessory muscle use, decreased breath sounds, crackles/rales Cardiovascular: normal peripheral pulses, normal rate, regular rhythm, no gallop/murmur, no JVD Abdomen: normal bowel sounds, soft, non tender, no organomegaly, non distended , no mass, no scars Genitourinary: normal external genitalia Extremities: no cyanosis, no clubbing Skin: no rash, no lesions, ulcers 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: alert, responsive Lymphatic: no neck adenopathy, no groin adenopathy Musculoskeletal: normal muscle bulk Laboratory Tests Test 11/08/18 04:50 11/08/18 09:03 White Blood Count 6.8 K/UL (4.8-10.8) Red Blood Count 5.11 M/UL (4.70-6.10) Hemoglobin 13.1 G/DL (14.2-18.0) L Hematocrit 43.5 % (42.0-52.0) Mean Corpuscular Volume 85 FL (80-99) Mean Corpuscular Hemoglobin 25.6 PG (27.0-31.0) L Mean Corpuscular Hemoglobin Concent 30.1 G/DL (32.0-36.0) L Red Cell Distribution Width 18.5 % (11.6-14.8) H Platelet Count 178 K/UL (150-450) Mean Platelet Volume 7.0 FL (6.5-10.1) Neutrophils (%) (Auto) 72.0 % (45.0-75.0) Lymphocytes (%) (Auto) 18.6 % (20.0-45.0) L Monocytes (%) (Auto) 8.6 % (1.0-10.0) Eosinophils (%) (Auto) 0.0 % (0.0-3.0) Basophils (%) (Auto) 0.8 % (0.0-2.0) Sodium Level 134 MMOL/L (136-145) L Potassium Level 4.9 MMOL/L (3.5-5.1) Chloride Level 93 MMOL/L (98-107) L Carbon Dioxide Level 31 MMOL/L (21-32) Anion Gap 10 mmol/L (5-15) Blood Urea Nitrogen 56 mg/dL (7-18) H Creatinine 8.2 MG/DL (0.55-1.30) H Estimat Glomerular Filtration Rate 6.6 mL/min (>60) Glucose Level 109 MG/DL (74-106) H Uric Acid 5.8 MG/DL (2.6-7.2) Calcium Level 9.3 MG/DL (8.5-10.1) Phosphorus Level 7.0 MG/DL (2.5-4.9) H Magnesium Level 1.9 MG/DL (1.8-2.4) Total Bilirubin 0.5 MG/DL (0.2-1.0) Aspartate Amino Transf (AST/SGOT) 16 U/L (15-37) Alanine Aminotransferase (ALT/SGPT) 12 U/L (12-78) Alkaline Phosphatase 88 U/L (46-116) Total Protein 7.4 G/DL (6.4-8.2) Albumin 3.1 G/DL (3.4-5.0) L Globulin 4.3 g/dL Albumin/Globulin Ratio 0.7 (1.0-2.7) L Cryptococcus Antigen Pending Cytomegalovirus DNA PCR copies/ml Pending Cytomegalovirus DNA PCR log10 Pending Arterial Blood pH 7.346 (7.350-7.450) Arterial Blood Partial Pressure CO2 51.3 mmHg (35.0-45.0) H Arterial Blood Partial Pressure O2 53.0 mmHg (75.0-100.0) L Arterial Blood HCO3 27.4 mmol/L (22.0-26.0) H Arterial Blood Oxygen Saturation 83.8 % (95-100) *L Arterial Blood Base Excess 1.0 (-2-2) Mino Test Positive Current Medications Medications (Trade) Dose Ordered Sig/Aleks Route PRN Reason Start Time Stop Time Status Last Admin Dose Admin Acetaminophen (Tylenol) 650 mg Q4H PRN ORAL Mild Pain/Temp > 100.5 11/05/18 22:45 11/30/18 22:44 Aspirin (Ecotrin) 81 mg DAILY ORAL 11/06/18 09:00 12/03/18 08:59 11/06/18 08:25 Atorvastatin Calcium (Lipitor) 10 mg BEDTIME ORAL 11/06/18 21:00 12/02/18 20:59 Carvedilol (Coreg) 6.25 mg EVERY 12 HOURS ORAL 11/06/18 09:00 12/01/18 08:59 11/06/18 08:26 Chlorhexidine Gluconate (Glo-Hex 2%) 1 applic DAILY@1999 TOPIC 11/06/18 20:00 12/05/18 19:59 11/08/18 20:54 Chlorhexidine Gluconate (Glo-Hex 2%) 1 applic DAILY@1999 TOPIC 11/08/18 20:00 12/08/18 19:59 Clonidine HCl (Catapres TTS-2) 1 patch QWEEK TDERMAL 11/08/18 15:00 12/08/18 14:59 11/08/18 15:38 Dextrose 1,000 ml @ 50 mls/hr Q20H IV 11/06/18 18:30 12/06/18 18:29 11/08/18 10:16 Dextrose (Dextrose 50%) 25 ml Q30M PRN IV Hypoglycemia 11/05/18 22:15 11/30/18 22:44 11/06/18 15:46 Dextrose (Dextrose 50%) 50 ml Q30M PRN IV Hypoglycemia 11/05/18 22:15 11/30/18 22:44 Hydralazine HCl (Apresoline) 10 mg Q6H PRN IV For High Blood Pressure 11/08/18 13:15 12/08/18 13:14 Insulin Aspart (NovoLOG) BEFORE MEALS AND HS SUBQ 11/06/18 06:30 12/01/18 06:29 11/08/18 20:59 Morphine Sulfate (Morphine Sulfate) 4 mg Q4H PRN IVP for moderate pain 11/08/18 15:30 11/15/18 15:29 11/08/18 16:30 Nicotine (Nicoderm) 1 patch Q24H TDERMAL 11/05/18 22:15 12/01/18 22:14 11/08/18 20:55 Pantoprazole (Protonix) 40 mg EVERY 12 HOURS IVP 11/06/18 21:00 12/06/18 20:59 11/08/18 20:54 Tacrolimus (Prograf) 2 mg MoWeFr@0000,1200 ORAL 11/06/18 00:00 12/02/18 00:00 Tacrolimus (Prograf) 2 mg SuTuThSa@0900,2100 ORAL 11/07/18 09:00 12/01/18 20:59 Francois Landis M.D. Nov 08, 2018 21:16
--- NOTE | 2018-11-08 21:30 | Operative Note - Dictated ---
DATE OF OPERATION: 11/08/2018 PREOPERATIVE DIAGNOSES: 1. Respiratory insufficiency with airway compromise. 2. Swollen tongue with inflamed oropharynx of unknown etiology. 3. Respiratory distress. 4. Sepsis. 5. Critical care. 6. Venous access. POSTOPERATIVE DIAGNOSES: 1. Respiratory insufficiency with airway compromise. 2. Swollen tongue with inflamed oropharynx of unknown etiology. 3. Respiratory distress. 4. Sepsis. 5. Critical care. 6. Venous access. OPERATION PERFORMED: 1. Emergency percutaneous tracheostomy. 2. Left femoral central venous catheter insertion. 3. Bronchoscopy. ATTENDING SURGEON: Jerman French M.D. CUSTOMER SERVICES SUPERVISOR: None. ANESTHESIOLOGIST: Not applicable. ANESTHESIA: 5 mg of Versed, 100 mcg of fentanyl. ESTIMATED BLOOD LOSS: Minimal. IV FLUIDS: Not applicable. COMPLICATIONS: None. DRAINS: None. SPECIMENS: None. IMPLANTS: 8-Australian Shiley tracheostomy and triple-lumen left femoral catheter. WOUND CLASSIFICATION: Class 1. INDICATIONS FOR PROCEDURE: This 68-year-old male who is currently admitted to the intensive care unit at [facility] in which I was called to emergently see for airway compromise. The patient since admission has developed worsening tongue edema and airway compromise with swollen oropharynx of unknown etiology. The patient has escalated in O2 requirements and arterial blood gases have been poor. The patient is unable to speak now and has difficulty with swallowing and respirations. Given current condition, airway protection is mandated, indicated, and recommended. Emergency bedside tracheostomy to be performed. 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 A central venous catheter is indicated and recommended and femoral placement was appropriate for the patient. Risks, benefits, alternatives discussed with the patient and his power of associate software application engineer who was his son in detail at the bedside and consent was obtained. Need for emergency necessity was explained in detail along with potential complications. OPERATIVE NOTE: The patient was made comfortable at the bedside. Preoperative time-out was taken identifying the patient, procedure, and staff. A great deal of planning was performed to ensure that the team and room was prepped appropriately. A ventilator was placed in the room. Suction, bag-mask, lines, trach, and all equipment were identified including bronchoscopy to be in the room with airway cart and supplies. Once this was completed, the patient was placed in the supine position and given Versed and fentanyl for his comfort. The BiPAP was removed and the patient was bag-masked and noted to be at 99 to 100% with appropriate aeration. The airway was evaluated and noted to be very edematous and significant amount of positive pressure was required with the bypass to get the patient aerated properly. A shoulder roll was placed. Neck was prepped and draped in standard surgical fashion. An incision was made approximately 2 cm above the sternal notch after local anesthetic was infiltrated. Incision was carried down to the trachea using blunt dissection. Once the trachea was identified and palpable and visualized, a finder needle was placed and slowly inserted and entered within the trachea through the cartilaginous ring without complication and the sheath of the finder needle was inserted and the needle removed. Airway flow was noted through the sheath. A guidewire was placed through the sheath and the sheath removed. A Baby Blue Rhino was inserted and followed by the dilator. Once I had appropriate aspect, an 8-Australian Shiley tracheostomy was inserted using the Seldinger technique without complication. Once the trachea was in place, the cannula was inserted and the patient was ventilated through the trachea and the balloon was insufflated. Good end-tidal CO2 and volumes were identified on the ventilator. Following this, a bronchoscopy was performed and secretions were suctioned from the trachea and bronchus. There was no significant airway reactive disease noted at the trachea or distal. Following bronchoscopy, the patient was placed on ventilatory support and made comfortable. The trachea was tacked to the skin in 2 places using provided Prolene sutures. Dressings and trach tie were applied. Chest x-ray was performed on the procedure identifying good airway with trachea and tracheostomy in place. Following this, the left groin was prepped and draped in standard surgical fashion. Anatomic landmarks were identified. Using Seldinger technique, a finder needle was used and the left femoral vein was cannulated on first stick. A guidewire was placed once good venous flow was identified and the needle removed. A small skin incision was made after local anesthetic was infiltrated and the dilator was used over the guidewire. Following this, a triple-lumen catheter was inserted over the guidewire and guidewire removed. All ports flushed and aspirated appropriately. Line was sutured in place using provided nylon suture. Dressings were applied. The patient tolerated the procedures well. Jerman French M.D. DR: CAT JOB#: [id number] CC: MARIA VICTORIA
--- NOTE | 2018-11-08 21:43 | Pulmonolgy Critical Care Note ---
Critical Care - Asmt/Plan Assessment/Plan: 1. No SVC syndrome on CTA 2. End-stage renal disease, on dialysis, status post multiple upper extremity vascular procedures. 3. Coronary artery bypass surgery. 4. Diabetes. 5. Dysphonia, tongue swelling 6. Resp failure, 7. macroglossia, airway obstruction, sp trach PLAN: continue vent complete CT neck and FU with ENt recommendations abg nebs supplemental o2 npo pressors if MAP less than 65 mmgh Atelectasis and effusions noted FU CXR in am HD per renal weaning protocol in am Respiratory: CXR, ABG, weaning trial Cardiac: continue to monitor HR/BP Renal: F/U I&O Infectious Disease: check cultures Endocrine: check TSH Prophylaxis: Protonix Disposition: keep in ICU Time Spent (Minutes): 50 Critical Care - Objective Last 24 Hour Vital Signs Date Time Temp Pulse Resp B/P (MAP) Pulse Ox O2 Delivery O2 Flow Rate FiO2 11/08/18 21:17 82 16 100 11/08/18 19:15 80 16 100 11/08/18 19:00 81 15 116/60 (78) 99 11/08/18 18:00 82 20 96/71 (79) 100 11/08/18 17:09 81 19 100 11/08/18 17:00 98.3 11/08/18 17:00 81 19 160/65 (96) 99 11/08/18 16:00 98.3 79 15 159/80 (106) 99 11/08/18 16:00 Bi-pap 11/08/18 16:00 80 11/08/18 16:00 50 11/08/18 15:38 145/97 11/08/18 15:00 78 14 145/97 (113) 99 11/08/18 14:45 73 18 100 11/08/18 14:30 50 11/08/18 14:00 76 18 169/71 (103) 100 11/08/18 13:00 82 19 160/88 (112) 98 11/08/18 12:52 82 17 100 Full Face 40 11/08/18 12:00 40 11/08/18 12:00 81 11/08/18 12:00 Bi-pap 11/08/18 12:00 98.3 81 17 183/45 (91) 99 11/08/18 11:00 80 20 100 Full Face 40 11/08/18 11:00 81 19 174/38 (83) 99 11/08/18 10:00 83 17 191/119 (143) 99 11/08/18 09:11 80 19 98 Full Face 40 11/08/18 09:00 81 18 173/73 (106) 99 11/08/18 08:00 98.2 84 18 160/56 (90) 99 11/08/18 08:00 40 11/08/18 08:00 Bi-pap 11/08/18 08:00 84 11/08/18 07:27 82 18 98 Full Face 40 11/08/18 07:00 82 21 152/71 (98) 98 11/08/18 06:00 82 17 146/63 (90) 98 11/08/18 05:08 83 22 99 Full Face 40 11/08/18 05:00 82 14 160/56 (90) 97 11/08/18 04:35 82 15 158/41 (80) 100 11/08/18 04:00 40 11/08/18 04:00 Bi-pap 11/08/18 04:00 97.7 82 24 185/61 (102) 99 11/08/18 04:00 82 11/08/18 03:10 82 20 99 Full Face 40 11/08/18 03:00 84 16 147/49 (81) 100 11/08/18 02:00 81 19 147/58 (87) 98 11/08/18 01:17 80 22 100 Full Face 40 11/08/18 01:00 80 16 118/60 (79) 99 11/08/18 00:22 80 11/08/18 00:00 40 11/08/18 00:00 Bi-pap 11/08/18 00:00 98.0 80 18 154/76 (102) 99 11/07/18 23:00 73 20 133/54 (80) 99 11/07/18 22:48 73 20 100 Full Face 40 11/07/18 22:00 80 15 116/74 (88) 98 Status: awake Condition: improving Lungs: clear Heart: HR/BP stable Abdomen: soft, non-tender Extremities: edema Accucheck: 128 Critical Care - Subjective ROS Limited/Unobtainable: Yes Condition: critical FI02: 100 Vent Support Breath Rate: 16 Vent Support Mode: AC Vent Tidal Volume: 500 Sputum Amount: Small PEEP: 5.0 PIP: 21 I&O: Intake and Output 11/07/18 11/08/18 18:59 06:59 Intake Total 550 ml 825.000 ml Output Total 0 ml 0 ml Balance 550 ml 825.000 ml IV Total 550 ml 825.000 ml Output Urine Total 0 ml 0 ml Subjective: events noted today concerned for security of airway dw surgery and pt sp trach at the bedside now on the vent, stable no reports of cp nv or bleeding npo Labs: Laboratory Tests Test 11/08/18 04:50 11/08/18 09:03 White Blood Count 6.8 K/UL (4.8-10.8) Red Blood Count 5.11 M/UL (4.70-6.10) Hemoglobin 13.1 G/DL (14.2-18.0) L Hematocrit 43.5 % (42.0-52.0) Mean Corpuscular Volume 85 FL (80-99) Mean Corpuscular Hemoglobin 25.6 PG (27.0-31.0) L Mean Corpuscular Hemoglobin Concent 30.1 G/DL (32.0-36.0) L Red Cell Distribution Width 18.5 % (11.6-14.8) H Platelet Count 178 K/UL (150-450) Mean Platelet Volume 7.0 FL (6.5-10.1) Neutrophils (%) (Auto) 72.0 % (45.0-75.0) Lymphocytes (%) (Auto) 18.6 % (20.0-45.0) L Monocytes (%) (Auto) 8.6 % (1.0-10.0) Eosinophils (%) (Auto) 0.0 % (0.0-3.0) Basophils (%) (Auto) 0.8 % (0.0-2.0) Sodium Level 134 MMOL/L (136-145) L Potassium Level 4.9 MMOL/L (3.5-5.1) Chloride Level 93 MMOL/L (98-107) L Carbon Dioxide Level 31 MMOL/L (21-32) Anion Gap 10 mmol/L (5-15) Blood Urea Nitrogen 56 mg/dL (7-18) H Creatinine 8.2 MG/DL (0.55-1.30) H Estimat Glomerular Filtration Rate 6.6 mL/min (>60) Glucose Level 109 MG/DL (74-106) H Uric Acid 5.8 MG/DL (2.6-7.2) Calcium Level 9.3 MG/DL (8.5-10.1) Phosphorus Level 7.0 MG/DL (2.5-4.9) H Magnesium Level 1.9 MG/DL (1.8-2.4) Total Bilirubin 0.5 MG/DL (0.2-1.0) Aspartate Amino Transf (AST/SGOT) 16 U/L (15-37) Alanine Aminotransferase (ALT/SGPT) 12 U/L (12-78) Alkaline Phosphatase 88 U/L (46-116) Total Protein 7.4 G/DL (6.4-8.2) Albumin 3.1 G/DL (3.4-5.0) L Globulin 4.3 g/dL Albumin/Globulin Ratio 0.7 (1.0-2.7) L Cryptococcus Antigen Pending Cytomegalovirus DNA PCR copies/ml Pending Cytomegalovirus DNA PCR log10 Pending Arterial Blood pH 7.346 (7.350-7.450) Arterial Blood Partial Pressure CO2 51.3 mmHg (35.0-45.0) H Arterial Blood Partial Pressure O2 53.0 mmHg (75.0-100.0) L Arterial Blood HCO3 27.4 mmol/L (22.0-26.0) H Arterial Blood Oxygen Saturation 83.8 % (95-100) *L Arterial Blood Base Excess 1.0 (-2-2) Mino Test Positive Christina Perez DO Nov 08, 2018 21:43
[2018-11-09] VITALS (24 sets, daily range): BP systolic 90–150; BP diastolic 37–101
[2018-11-09] MEDS: NovoLOG Insulin Flexpen SUBQ SCH ×4 (05:52→20:59)
[2018-11-09 06:08] LABS: BASOPHILS % (AUTO) 0.6 % (0.0-2.0); HEMATOCRIT 42.9 % (42.0-52.0); HEMOGLOBIN 12.8 G/DL (14.2-18.0); LYMPHOCYTES % (AUTO) 17.9 % (20.0-45.0); MEAN CORPUSCULAR VOLUME 84 FL (80-99); MONOCYTES % (AUTO) 7.9 % (1.0-10.0); NEUTROPHILS % (AUTO) 73.5 % (45.0-75.0); PLATELET COUNT 166 K/UL (150-450); RED BLOOD COUNT 5.12 M/UL (4.70-6.10); RED CELL DISTRIBUTION WIDTH 18.1 % (11.6-14.8); WHITE BLOOD COUNT 7.8 K/UL (4.8-10.8)
[2018-11-09 06:28] LABS: ANION GAP 13 mmol/L (5-15); BLOOD UREA NITROGEN 67 mg/dL (7-18); CALCIUM 9.3 MG/DL (8.5-10.1); CARBON DIOXIDE 28 MMOL/L (21-32); CHLORIDE 90 MMOL/L (98-107); CREATININE 9.4 MG/DL (0.55-1.30); POTASSIUM 4.8 MMOL/L (3.5-5.1); SODIUM 131 MMOL/L (136-145)
--- NOTE | 2018-11-09 08:15 | Progress Note ---
DATE: 11/08/2018 SUBJECTIVE: This is an elderly male. He is in ICU, nonverbal, had acute respiratory distress, this morning got intubated, 01:12 pulmonary is on consult. PHYSICAL EXAMINATION: VITAL SIGNS: Blood pressure 01:21, pulse 110, respiratory rate 18, temperature, no fever. SKIN: Good skin turgor. HEENT: Eyes are closed. NECK: Supple. CHEST: Bilaterally clear. CARDIOVASCULAR: Regular rhythm. ABDOMEN: Soft. Positive bowel sounds. EXTREMITIES: No CCE. ASSESSMENT: 1. Acute respiratory failure. 2. 01:43 3. Hypertension. 4. End-stage renal disease 01:49 PLAN: 1. Continue current treatment plan. 2. 01:[address] Mendoza and ENT. Jamari Carter M.D. DR: Veronica JOB#: [id number] CC:
[2018-11-09] MEDS: Carvedilol 6.25mg Tab ORAL SCH ×2 (09:00→20:53)
[2018-11-09] MEDS: Pantoprazole Inj IVP SCH ×2 (09:00→20:53)
[2018-11-09] MEDS: Aspirin EC 81mg tab ORAL SCH (09:00)
--- NOTE | 2018-11-09 12:17 | Nephrology Progress Note ---
Assessment/Plan Problem List: (1) ESRD (end stage renal disease) on dialysis (2) Foot ulcer (3) CHF (congestive heart failure) (4) Pacemaker (5) Acute respiratory failure Assessment: with Co2 retention Assessment ESRD with high K and SOB on admit Foot ulcer, likely infected High Troponin likely NSTMI Pacer , Pleural effusion s/p CABGS s/p Liver transplant Plan Now has tracheostomy currently on HD tolerating well. discussed with Dr Mendoza 11/06 DC unnecessary pills as patient NPO One dose of solumedrol 11/06 and again 11/08 I adjust Vanco dosages Redose Vanco 11/07 Vanco level 11/08 TTS2 for high BP ENT eval per cardio and ID Poor Prognosis Podiatry and Vascular surgical eval Subjective ROS Limited/Unobtainable: No Constitutional: Reports: malaise Objective Objective Last 24 Hour Vital Signs Date Time Temp Pulse Resp B/P (MAP) Pulse Ox O2 Delivery O2 Flow Rate FiO2 11/09/18 11:00 76 17 120/39 (66) 99 11/09/18 10:33 81 18 100 11/09/18 10:00 73 15 90/75 (80) 99 11/09/18 09:00 71 14 126/101 (109) 98 11/09/18 09:00 71 126/101 11/09/18 08:30 73 16 100 11/09/18 08:23 Trach Collar 40.0 40 11/09/18 08:00 40 11/09/18 08:00 98.5 71 15 115/40 (65) 98 11/09/18 08:00 Mechanical Ventilator 11/09/18 08:00 74 11/09/18 07:00 78 5 134/42 (72) 99 11/09/18 06:51 76 17 100 11/09/18 06:00 84 16 138/51 (80) 100 11/09/18 05:00 72 16 138/47 (77) 100 11/09/18 04:41 83 16 100 11/09/18 04:00 75 11/09/18 04:00 40 11/09/18 04:00 Mechanical Ventilator 11/09/18 04:00 98.5 85 24 138/71 (93) 100 11/09/18 03:15 79 21 100 11/09/18 03:00 77 19 128/51 (76) 100 11/09/18 02:00 72 15 103/55 (71) 100 11/09/18 01:27 76 19 100 11/09/18 01:00 75 12 100/54 (69) 100 11/09/18 00:00 Mechanical Ventilator 11/09/18 00:00 99.1 78 16 95/51 (66) 100 11/08/18 23:00 78 16 95/51 (66) 100 11/08/18 22:57 80 16 100 11/08/18 22:00 82 23 112/39 (63) 100 11/08/18 21:17 82 16 100 11/08/18 21:00 83 20 103/30 (54) 98 11/08/18 20:00 40 11/08/18 20:00 Mechanical Ventilator 11/08/18 20:00 81 11/08/18 20:00 100.3 81 15 118/103 (108) 98 11/08/18 19:15 80 16 100 11/08/18 19:00 81 15 116/60 (78) 99 11/08/18 18:00 82 20 96/71 (79) 100 11/08/18 17:09 81 19 100 11/08/18 17:00 98.3 11/08/18 17:00 81 19 160/65 (96) 99 11/08/18 16:00 98.3 79 15 159/80 (106) 99 11/08/18 16:00 Bi-pap 11/08/18 16:00 80 11/08/18 16:00 50 11/08/18 15:38 145/97 11/08/18 15:00 78 14 145/97 (113) 99 11/08/18 14:45 73 18 100 11/08/18 14:30 50 11/08/18 14:00 76 18 169/71 (103) 100 11/08/18 13:00 82 19 160/88 (112) 98 11/08/18 12:52 82 17 100 Full Face 40 Intake and Output 11/08/18 11/09/18 19:00 07:00 Intake Total 1050 ml Output Total 0 ml 0 ml Balance 0 ml 1050 ml IV Total 1050 ml Output Urine Total 0 ml 0 ml Laboratory Tests 11/09/18 05:00: White Blood Count 7.8, Red Blood Count 5.12, Hemoglobin 12.8L, Hematocrit 42.9, Mean Corpuscular Volume 84, Mean Corpuscular Hemoglobin 25.0L, Mean Corpuscular Hemoglobin Concent 29.8L, Red Cell Distribution Width 18.1H, Platelet Count 166 , Mean Platelet Volume 7.4, Neutrophils (%) (Auto) 73.5, Lymphocytes (%) (Auto) 17.9L, Monocytes (%) (Auto) 7.9, Eosinophils (%) (Auto) 0.0, Basophils (%) (Auto ) 0.6, Sodium Level 131L, Potassium Level 4.8, Chloride Level 90L, Carbon Dioxide Level 28, Anion Gap 13, Blood Urea Nitrogen 67H, Creatinine 9.4H, Estimat Glomerular Filtration Rate 5.6, Glucose Level 110H, Calcium Level 9.3, Random Vancomycin Level 20.7 11/09/18 11:35: Arterial Blood pH 7.423, Arterial Blood Partial Pressure CO2 48.4H, Arterial Blood Partial Pressure O2 97.5, Arterial Blood HCO3 30.9H, Arterial Blood Oxygen Saturation 97.1, Arterial Blood Base Excess 5.5H, Mino Test Positive Height (Feet): 5 Height (Inches): 10.00 Weight (Pounds): 200 General Appearance: no apparent distress EENT: other - tracheostomy now Cardiovascular: normal rate Respiratory/Chest: decreased breath sounds Abdomen: distended Objective no other change Nakul Stevens MD Nov 09, 2018 12:17
--- NOTE | 2018-11-09 12:33 | GI Progress Note ---
Assessment/Plan Problems: (1) Foot ulcer ICD Codes: L97.509 - Non-pressure chronic ulcer of other part of unspecified foot with unspecified severity SNOMED: 03512527 Qualifiers: Qualified Codes: L97.511 - Non-pressure chronic ulcer of other part of right foot limited to breakdown of skin (2) DM (diabetes mellitus) ICD Codes: E11.9 - Type 2 diabetes mellitus without complications SNOMED: 11990391 (3) Transplant ICD Codes: Z94.9 - Transplanted organ and tissue status, unspecified SNOMED: 179083374 Status: unchanged Status Narrative Discussed with Dr. Escalera Assessment/Plan History of liver transplant, currently on Prograf constipation Patient now in ICU, status post tracheostomy NGT placement, PEG with cardiac clearance prn transfusions ppi zofran prn Bowel regimen Trend LFTs follow labs The patient was seen and examined at bedside and all new and available data was reviewed in the patients chart. I agree with the above findings, impression and plan. (Patient seen earlier today. Signature stamp does not reflect patient encounter time.). - Jorge Escalera MD Subjective Subjective Limited Objective Last 24 Hour Vital Signs Date Time Temp Pulse Resp B/P (MAP) Pulse Ox O2 Delivery O2 Flow Rate FiO2 11/09/18 11:00 76 17 120/39 (66) 99 11/09/18 10:33 81 18 100 11/09/18 10:00 73 15 90/75 (80) 99 11/09/18 09:00 71 14 126/101 (109) 98 11/09/18 09:00 71 126/101 11/09/18 08:30 73 16 100 11/09/18 08:23 Trach Collar 40.0 40 11/09/18 08:00 40 11/09/18 08:00 98.5 71 15 115/40 (65) 98 11/09/18 08:00 Mechanical Ventilator 11/09/18 08:00 74 11/09/18 07:00 78 5 134/42 (72) 99 11/09/18 06:51 76 17 100 11/09/18 06:00 84 16 138/51 (80) 100 11/09/18 05:00 72 16 138/47 (77) 100 11/09/18 04:41 83 16 100 11/09/18 04:00 75 11/09/18 04:00 40 11/09/18 04:00 Mechanical Ventilator 11/09/18 04:00 98.5 85 24 138/71 (93) 100 11/09/18 03:15 79 21 100 11/09/18 03:00 77 19 128/51 (76) 100 11/09/18 02:00 72 15 103/55 (71) 100 11/09/18 01:27 76 19 100 11/09/18 01:00 75 12 100/54 (69) 100 11/09/18 00:00 Mechanical Ventilator 11/09/18 00:00 99.1 78 16 95/51 (66) 100 11/08/18 23:00 78 16 95/51 (66) 100 11/08/18 22:57 80 16 100 11/08/18 22:00 82 23 112/39 (63) 100 11/08/18 21:17 82 16 100 11/08/18 21:00 83 20 103/30 (54) 98 11/08/18 20:00 40 11/08/18 20:00 Mechanical Ventilator 11/08/18 20:00 81 11/08/18 20:00 100.3 81 15 118/103 (108) 98 11/08/18 19:15 80 16 100 11/08/18 19:00 81 15 116/60 (78) 99 11/08/18 18:00 82 20 96/71 (79) 100 11/08/18 17:09 81 19 100 11/08/18 17:00 98.3 11/08/18 17:00 81 19 160/65 (96) 99 11/08/18 16:00 98.3 79 15 159/80 (106) 99 11/08/18 16:00 Bi-pap 11/08/18 16:00 80 11/08/18 16:00 50 11/08/18 15:38 145/97 11/08/18 15:00 78 14 145/97 (113) 99 11/08/18 14:45 73 18 100 11/08/18 14:30 50 11/08/18 14:00 76 18 169/71 (103) 100 11/08/18 13:00 82 19 160/88 (112) 98 11/08/18 12:52 82 17 100 Full Face 40 Intake and Output 11/08/18 11/09/18 19:00 07:00 Intake Total 1050 ml Output Total 0 ml 0 ml Balance 0 ml 1050 ml IV Total 1050 ml Output Urine Total 0 ml 0 ml Laboratory Tests Test 11/09/18 05:00 11/09/18 11:35 White Blood Count 7.8 K/UL (4.8-10.8) Red Blood Count 5.12 M/UL (4.70-6.10) Hemoglobin 12.8 G/DL (14.2-18.0) L Hematocrit 42.9 % (42.0-52.0) Mean Corpuscular Volume 84 FL (80-99) Mean Corpuscular Hemoglobin 25.0 PG (27.0-31.0) L Mean Corpuscular Hemoglobin Concent 29.8 G/DL (32.0-36.0) L Red Cell Distribution Width 18.1 % (11.6-14.8) H Platelet Count 166 K/UL (150-450) Mean Platelet Volume 7.4 FL (6.5-10.1) Neutrophils (%) (Auto) 73.5 % (45.0-75.0) Lymphocytes (%) (Auto) 17.9 % (20.0-45.0) L Monocytes (%) (Auto) 7.9 % (1.0-10.0) Eosinophils (%) (Auto) 0.0 % (0.0-3.0) Basophils (%) (Auto) 0.6 % (0.0-2.0) Sodium Level 131 MMOL/L (136-145) L Potassium Level 4.8 MMOL/L (3.5-5.1) Chloride Level 90 MMOL/L (98-107) L Carbon Dioxide Level 28 MMOL/L (21-32) Anion Gap 13 mmol/L (5-15) Blood Urea Nitrogen 67 mg/dL (7-18) H Creatinine 9.4 MG/DL (0.55-1.30) H Estimat Glomerular Filtration Rate 5.6 mL/min (>60) Glucose Level 110 MG/DL (74-106) H Calcium Level 9.3 MG/DL (8.5-10.1) Random Vancomycin Level 20.7 ug/mL Arterial Blood pH 7.423 (7.350-7.450) Arterial Blood Partial Pressure CO2 48.4 mmHg (35.0-45.0) H Arterial Blood Partial Pressure O2 97.5 mmHg (75.0-100.0) Arterial Blood HCO3 30.9 mmol/L (22.0-26.0) H Arterial Blood Oxygen Saturation 97.1 % (95-100) Arterial Blood Base Excess 5.5 (-2-2) H Mino Test Positive Height (Feet): 5 Height (Inches): 10.00 Weight (Pounds): 200 General Appearance: WD/WN, no apparent distress, alert Cardiovascular: normal rate Respiratory/Chest: normal breath sounds, no respiratory distress Abdominal Exam: normal bowel sounds, non tender, soft Extremities: normal range of motion, non-tender Kelvin Briggs NP Nov 09, 2018 12:33
[2018-11-09] MEDS ORDERED: Isovue-370 150ml vial INJ PRN (12:45)
--- NOTE | 2018-11-09 12:48 | Pulmonology Progress Note ---
Assessment/Plan Assessment/Plan 1. No SVC syndrome on CTA 2. End-stage renal disease, on dialysis, status post multiple upper extremity vascular procedures. 3. Coronary artery bypass surgery. 4. Diabetes. 5. Dysphonia, tongue swelling; s/p trach 6. Resp failure, hypercapneic PLAN: Trach done yesterday CXR with atelectasis and effusions noted ABG better on vent tongue swelling - CT neck ordered disc w Dr Carter place NGT for feeds confirmed he is on CS transfer list but no beds available disc w his PMD Dr Figueredo Subjective ROS Limited/Unobtainable: Yes Allergies: Coded Allergies: CEPHALEXIN (Unverified Allergy, Unknown, 02/24/14) SULFAMETHOXAZOLE (Unverified Allergy, Unknown, 02/24/14) TRIMETHOPRIM (Unverified Allergy, Unknown, 02/24/14) Objective Last 24 Hour Vital Signs Date Time Temp Pulse Resp B/P (MAP) Pulse Ox O2 Delivery O2 Flow Rate FiO2 11/09/18 11:00 76 17 120/39 (66) 99 11/09/18 10:33 81 18 100 11/09/18 10:00 73 15 90/75 (80) 99 11/09/18 09:00 71 14 126/101 (109) 98 11/09/18 09:00 71 126/101 11/09/18 08:30 73 16 100 11/09/18 08:23 Trach Collar 40.0 40 11/09/18 08:00 40 11/09/18 08:00 98.5 71 15 115/40 (65) 98 11/09/18 08:00 Mechanical Ventilator 11/09/18 08:00 74 11/09/18 07:00 78 5 134/42 (72) 99 11/09/18 06:51 76 17 100 11/09/18 06:00 84 16 138/51 (80) 100 11/09/18 05:00 72 16 138/47 (77) 100 11/09/18 04:41 83 16 100 11/09/18 04:00 75 11/09/18 04:00 40 11/09/18 04:00 Mechanical Ventilator 11/09/18 04:00 98.5 85 24 138/71 (93) 100 11/09/18 03:15 79 21 100 11/09/18 03:00 77 19 128/51 (76) 100 11/09/18 02:00 72 15 103/55 (71) 100 11/09/18 01:27 76 19 100 11/09/18 01:00 75 12 100/54 (69) 100 11/09/18 00:00 Mechanical Ventilator 11/09/18 00:00 99.1 78 16 95/51 (66) 100 11/08/18 23:00 78 16 95/51 (66) 100 11/08/18 22:57 80 16 100 11/08/18 22:00 82 23 112/39 (63) 100 11/08/18 21:17 82 16 100 11/08/18 21:00 83 20 103/30 (54) 98 11/08/18 20:00 40 11/08/18 20:00 Mechanical Ventilator 11/08/18 20:00 81 11/08/18 20:00 100.3 81 15 118/103 (108) 98 11/08/18 19:15 80 16 100 11/08/18 19:00 81 15 116/60 (78) 99 11/08/18 18:00 82 20 96/71 (79) 100 11/08/18 17:09 81 19 100 11/08/18 17:00 98.3 11/08/18 17:00 81 19 160/65 (96) 99 11/08/18 16:00 98.3 79 15 159/80 (106) 99 11/08/18 16:00 Bi-pap 11/08/18 16:00 80 11/08/18 16:00 50 11/08/18 15:38 145/97 11/08/18 15:00 78 14 145/97 (113) 99 11/08/18 14:45 73 18 100 11/08/18 14:30 50 11/08/18 14:00 76 18 169/71 (103) 100 11/08/18 13:00 82 19 160/88 (112) 98 11/08/18 12:52 82 17 100 Full Face 40 Intake and Output 11/08/18 11/09/18 19:00 07:00 Intake Total 1050 ml Output Total 0 ml 0 ml Balance 0 ml 1050 ml IV Total 1050 ml Output Urine Total 0 ml 0 ml Objective trach General Appearance: no acute distress HEENT: atraumatic Respiratory/Chest: rhonchi Cardiovascular: normal rate Microbiology Date/Time Source Procedure Growth Status 11/07/18 06:20 Blood Blood Culture - Preliminary NO GROWTH AFTER 24 HOURS Resulted 11/07/18 06:10 Blood Blood Culture - Preliminary NO GROWTH AFTER 24 HOURS Resulted Laboratory Tests 11/09/18 05:00: White Blood Count 7.8, Red Blood Count 5.12, Hemoglobin 12.8L, Hematocrit 42.9, Mean Corpuscular Volume 84, Mean Corpuscular Hemoglobin 25.0L, Mean Corpuscular Hemoglobin Concent 29.8L, Red Cell Distribution Width 18.1H, Platelet Count 166 , Mean Platelet Volume 7.4, Neutrophils (%) (Auto) 73.5, Lymphocytes (%) (Auto) 17.9L, Monocytes (%) (Auto) 7.9, Eosinophils (%) (Auto) 0.0, Basophils (%) (Auto ) 0.6, Sodium Level 131L, Potassium Level 4.8, Chloride Level 90L, Carbon Dioxide Level 28, Anion Gap 13, Blood Urea Nitrogen 67H, Creatinine 9.4H, Estimat Glomerular Filtration Rate 5.6, Glucose Level 110H, Calcium Level 9.3, Random Vancomycin Level 20.7 11/09/18 11:35: Arterial Blood pH 7.423, Arterial Blood Partial Pressure CO2 48.4H, Arterial Blood Partial Pressure O2 97.5, Arterial Blood HCO3 30.9H, Arterial Blood Oxygen Saturation 97.1, Arterial Blood Base Excess 5.5H, Mino Test Positive Current Medications Medications (Trade) Dose Ordered Sig/Aleks Route PRN Reason Start Time Stop Time Status Last Admin Dose Admin Acetaminophen (Tylenol) 650 mg Q4H PRN ORAL Mild Pain/Temp > 100.5 11/05/18 22:45 11/30/18 22:44 Aspirin (Ecotrin) 81 mg DAILY ORAL 11/06/18 09:00 12/03/18 08:59 11/06/18 08:25 Atorvastatin Calcium (Lipitor) 10 mg BEDTIME ORAL 11/06/18 21:00 12/02/18 20:59 Carvedilol (Coreg) 6.25 mg EVERY 12 HOURS ORAL 11/06/18 09:00 12/01/18 08:59 11/06/18 08:26 Chlorhexidine Gluconate (Glo-Hex 2%) 1 applic DAILY@1999 TOPIC 11/06/18 20:00 12/05/18:59 11/08/18 20:54 Chlorhexidine Gluconate (Glo-Hex 2%) 1 applic DAILY@2000 TOPIC 11/08/18 20:00 12/08/18 19:59 Dextrose 1,000 ml @ 50 mls/hr Q20H IV 11/06/18 18:30 12/06/18 18:29 11/09/18 05:53 Dextrose (Dextrose 50%) 25 ml Q30M PRN IV Hypoglycemia 11/05/18 22:15 11/30/18 22:44 11/06/18 15:46 Dextrose (Dextrose 50%) 50 ml Q30M PRN IV Hypoglycemia 11/05/18 22:15 11/30/18 22:44 Hydralazine HCl (Apresoline) 10 mg Q6H PRN IV For High Blood Pressure 11/08/18 13:15 12/08/18 13:14 Insulin Aspart (NovoLOG) BEFORE MEALS AND HS SUBQ 11/06/18 06:30 12/01/18 06:29 11/09/18 05:52 Morphine Sulfate (Morphine Sulfate) 4 mg Q4H PRN IVP for moderate pain 11/08/18 15:30 11/15/18 15:29 11/08/18 16:30 Nicotine (Nicoderm) 1 patch Q24H TDERMAL 11/05/18 22:15 12/01/18 22:14 11/08/18 20:55 Pantoprazole (Protonix) 40 mg EVERY 12 HOURS IVP 11/06/18 21:00 12/06/18 20:59 11/08/18 20:54 Tacrolimus (Prograf) 2 mg MoWeFr@0000,1200 ORAL 11/06/18 00:00 12/02/18 00:00 Tacrolimus (Prograf) 2 mg SuTuThSa@0900,2100 ORAL 11/07/18 09:00 12/01/18 20:59 Saroj Mendoza MD Nov 09, 2018 12:48
[2018-11-09] MEDS: Morphine Sulfate 4mg/ml Inj (IV USE ONLY) IVP PRN ×2 (12:54→17:43)
--- NOTE | 2018-11-09 13:53 | Cardiac Electrophysiology PN ---
Assessment/Plan Assessment/Plan 1. Troponin elevation. The patient does not have any chest pain. Already S/P CABG. Likely due to renal failure. On Coreg 6.25 mg bid, aspirin and Lipitor 2. Status post coronary bypass graft 3. Nonsustained ventricular tachycardia. The patient has history of prior myocardial infarction and bypass. EF 55% 4. Congestive heart failure. On hemodialysis, per Dr. Stevens. 5. End-stage renal disease, on hemodialysis. 6. Status post right sided Medtronic dual chamber pacemaker. 7. Right foot ulcer. Antibiotic per Dr Landis. Awaiting transfer for foot surgery by Dr. Huizar 8. History of liver transplant on Prograf 9. Respiratory failure, ? etiology S/P Emergency tracheostomy DW RN Subjective Subjective In SR in ICU off pressors. Had emergency bedside tracheostomy yesterday for respiratory failure. Objective Last 24 Hour Vital Signs Date Time Temp Pulse Resp B/P (MAP) Pulse Ox O2 Delivery O2 Flow Rate FiO2 11/09/18 13:00 84 11 138/48 (78) 98 11/09/18 12:47 82 16 100 11/09/18 12:00 Mechanical Ventilator 11/09/18 12:00 98.0 83 11 144/37 (72) 98 11/09/18 12:00 60 11/09/18 12:00 40 11/09/18 11:00 76 17 120/39 (66) 99 11/09/18 10:33 81 18 100 11/09/18 10:00 73 15 90/75 (80) 99 11/09/18 09:00 71 14 126/101 (109) 98 11/09/18 09:00 71 126/101 11/09/18 08:30 73 16 100 11/09/18 08:23 Trach Collar 40.0 40 11/09/18 08:00 40 11/09/18 08:00 98.5 71 15 115/40 (65) 98 11/09/18 08:00 Mechanical Ventilator 11/09/18 08:00 74 11/09/18 07:00 78 5 134/42 (72) 99 11/09/18 06:51 76 17 100 11/09/18 06:00 84 16 138/51 (80) 100 11/09/18 05:00 72 16 138/47 (77) 100 3/25/19 04:41 83 16 100 11/09/18 04:00 75 11/09/18 04:00 40 11/09/18 04:00 Mechanical Ventilator 11/09/18 04:00 98.5 85 24 138/71 (93) 100 11/09/18 03:15 79 21 100 11/09/18 03:00 77 19 128/51 (76) 100 11/09/18 02:00 72 15 103/55 (71) 100 11/09/18 01:27 76 19 100 11/09/18 01:00 75 12 100/54 (69) 100 11/09/18 00:00 Mechanical Ventilator 11/09/18 00:00 99.1 78 16 95/51 (66) 100 11/08/18 23:00 78 16 95/51 (66) 100 11/08/18 22:57 80 16 100 11/08/18 22:00 82 23 112/39 (63) 100 11/08/18 21:17 82 16 100 11/08/18 21:00 83 20 103/30 (54) 98 11/08/18 20:00 40 11/08/18 20:00 Mechanical Ventilator 11/08/18 20:00 81 11/08/18 20:00 100.3 81 15 118/103 (108) 98 11/08/18 19:15 80 16 100 11/08/18 19:00 81 15 116/60 (78) 99 11/08/18 18:00 82 20 96/71 (79) 100 11/08/18 17:09 81 19 100 11/08/18 17:00 98.3 11/08/18 17:00 81 19 160/65 (96) 99 11/08/18 16:00 98.3 79 15 159/80 (106) 99 11/08/18 16:00 Bi-pap 11/08/18 16:00 80 11/08/18 16:00 50 11/08/18 15:38 145/97 11/08/18 15:00 78 14 145/97 (113) 99 11/08/18 14:45 73 18 100 11/08/18 14:30 50 11/08/18 14:00 76 18 169/71 (103) 100 Intake and Output 11/08/18 11/09/18 19:00 07:00 Intake Total 1050 ml Output Total 0 ml 0 ml Balance 0 ml 1050 ml IV Total 1050 ml Output Urine Total 0 ml 0 ml Laboratory Tests Test 11/09/18 05:00 11/09/18 11:35 White Blood Count 7.8 K/UL (4.8-10.8) Red Blood Count 5.12 M/UL (4.70-6.10) Hemoglobin 12.8 G/DL (14.2-18.0) L Hematocrit 42.9 % (42.0-52.0) Mean Corpuscular Volume 84 FL (80-99) Mean Corpuscular Hemoglobin 25.0 PG (27.0-31.0) L Mean Corpuscular Hemoglobin Concent 29.8 G/DL (32.0-36.0) L Red Cell Distribution Width 18.1 % (11.6-14.8) H Platelet Count 166 K/UL (150-450) Mean Platelet Volume 7.4 FL (6.5-10.1) Neutrophils (%) (Auto) 73.5 % (45.0-75.0) Lymphocytes (%) (Auto) 17.9 % (20.0-45.0) L Monocytes (%) (Auto) 7.9 % (1.0-10.0) Eosinophils (%) (Auto) 0.0 % (0.0-3.0) Basophils (%) (Auto) 0.6 % (0.0-2.0) Sodium Level 131 MMOL/L (136-145) L Potassium Level 4.8 MMOL/L (3.5-5.1) Chloride Level 90 MMOL/L (98-107) L Carbon Dioxide Level 28 MMOL/L (21-32) Anion Gap 13 mmol/L (5-15) Blood Urea Nitrogen 67 mg/dL (7-18) H Creatinine 9.4 MG/DL (0.55-1.30) H Estimat Glomerular Filtration Rate 5.6 mL/min (>60) Glucose Level 110 MG/DL (74-106) H Calcium Level 9.3 MG/DL (8.5-10.1) Random Vancomycin Level 20.7 ug/mL Arterial Blood pH 7.423 (7.350-7.450) Arterial Blood Partial Pressure CO2 48.4 mmHg (35.0-45.0) H Arterial Blood Partial Pressure O2 97.5 mmHg (75.0-100.0) Arterial Blood HCO3 30.9 mmol/L (22.0-26.0) H Arterial Blood Oxygen Saturation 97.1 % (95-100) Arterial Blood Base Excess 5.5 (-2-2) H Mino Test Positive Microbiology Date/Time Source Procedure Growth Status 11/07/18 06:20 Blood Blood Culture - Preliminary NO GROWTH AFTER 24 HOURS Resulted 11/07/18 06:10 Blood Blood Culture - Preliminary NO GROWTH AFTER 24 HOURS Resulted Objective HEAD AND NECK: No JVD.Tracheostomy intact on the vent LUNGS: Coarse rhonchi. CARDIOVASCULAR: Regular S1 and S2 with no gallop. Sternotomy is intact Pacemaker in the right chest. ABDOMEN: Soft. EXTREMITIES: 1+ pitting edema Shivam Sharpe MD Nov 09, 2018 13:53
--- NOTE | 2018-11-09 14:07 | Surgery Progress Note ---
Surgery Progress Note Subjective Procedure Performed 1. emergency tracheostomy 2. left femoral central venous catheter insertion 3. bronchoscopy Additional Comments looks better and more stable. today. vitals stable. awake and responsive pain from trach site. on vent support. Objective Last 24 Hour Vital Signs Date Time Temp Pulse Resp B/P (MAP) Pulse Ox O2 Delivery O2 Flow Rate FiO2 11/09/18 14:00 86 21 150/63 (92) 97 11/09/18 13:00 84 11 138/48 (78) 98 11/09/18 12:47 82 16 100 11/09/18 12:00 Mechanical Ventilator 11/09/18 12:00 98.0 83 11 144/37 (72) 98 11/09/18 12:00 60 11/09/18 12:00 40 11/09/18 11:00 76 17 120/39 (66) 99 11/09/18 10:33 81 18 100 11/09/18 10:00 73 15 90/75 (80) 99 11/09/18 09:00 71 14 126/101 (109) 98 11/09/18 09:00 71 126/101 11/09/18 08:30 73 16 100 11/09/18 08:23 Trach Collar 40.0 40 11/09/18 08:00 40 11/09/18 08:00 98.5 71 15 115/40 (65) 98 11/09/18 08:00 Mechanical Ventilator 11/09/18 08:00 74 11/09/18 07:00 78 5 134/42 (72) 99 11/09/18 06:51 76 17 100 11/09/18 06:00 84 16 138/51 (80) 100 11/09/18 05:00 72 16 138/47 (77) 100 11/09/18 04:41 83 16 100 11/09/18 04:00 75 11/09/18 04:00 40 11/09/18 04:00 Mechanical Ventilator 11/09/18 04:00 98.5 85 24 138/71 (93) 100 11/09/18 03:15 79 21 100 11/09/18 03:00 77 19 128/51 (76) 100 11/09/18 02:00 72 15 103/55 (71) 100 11/09/18 01:27 76 19 100 11/09/18 01:00 75 12 100/54 (69) 100 11/09/18 00:00 Mechanical Ventilator 11/09/18 00:00 99.1 78 16 95/51 (66) 100 11/08/18 23:00 78 16 95/51 (66) 100 11/08/18 22:57 80 16 100 11/08/18 22:00 82 23 112/39 (63) 100 11/08/18 21:17 82 16 100 11/08/18 21:00 83 20 103/30 (54) 98 11/08/18 20:00 40 11/08/18 20:00 Mechanical Ventilator 11/08/18 20:00 81 11/08/18 20:00 100.3 81 15 118/103 (108) 98 11/08/18 19:15 80 16 100 11/08/18 19:00 81 15 116/60 (78) 99 11/08/18 18:00 82 20 96/71 (79) 100 11/08/18 17:09 81 19 100 11/08/18 17:00 98.3 11/08/18 17:00 81 19 160/65 (96) 99 11/08/18 16:00 98.3 79 15 159/80 (106) 99 11/08/18 16:00 Bi-pap 11/08/18 16:00 80 11/08/18 16:00 50 11/08/18 15:38 145/97 11/08/18 15:00 78 14 145/97 (113) 99 11/08/18 14:45 73 18 100 11/08/18 14:30 50 I&O Intake and Output 11/08/18 11/09/18 19:00 07:00 Intake Total 1050 ml Output Total 0 ml 0 ml Balance 0 ml 1050 ml IV Total 1050 ml Output Urine Total 0 ml 0 ml Dressing: dry Wound: clean Drains: other Cardiovascular: RSR Respiratory: clear Abdomen: soft, non-tender, non-distended Extremities: no tenderness, no cyanosis Laboratory Tests Test 11/09/18 05:00 11/09/18 11:35 White Blood Count 7.8 K/UL (4.8-10.8) Red Blood Count 5.12 M/UL (4.70-6.10) Hemoglobin 12.8 G/DL (14.2-18.0) L Hematocrit 42.9 % (42.0-52.0) Mean Corpuscular Volume 84 FL (80-99) Mean Corpuscular Hemoglobin 25.0 PG (27.0-31.0) L Mean Corpuscular Hemoglobin Concent 29.8 G/DL (32.0-36.0) L Red Cell Distribution Width 18.1 % (11.6-14.8) H Platelet Count 166 K/UL (150-450) Mean Platelet Volume 7.4 FL (6.5-10.1) Neutrophils (%) (Auto) 73.5 % (45.0-75.0) Lymphocytes (%) (Auto) 17.9 % (20.0-45.0) L Monocytes (%) (Auto) 7.9 % (1.0-10.0) Eosinophils (%) (Auto) 0.0 % (0.0-3.0) Basophils (%) (Auto) 0.6 % (0.0-2.0) Sodium Level 131 MMOL/L (136-145) L Potassium Level 4.8 MMOL/L (3.5-5.1) Chloride Level 90 MMOL/L (98-107) L Carbon Dioxide Level 28 MMOL/L (21-32) Anion Gap 13 mmol/L (5-15) Blood Urea Nitrogen 67 mg/dL (7-18) H Creatinine 9.4 MG/DL (0.55-1.30) H Estimat Glomerular Filtration Rate 5.6 mL/min (>60) Glucose Level 110 MG/DL (74-106) H Calcium Level 9.3 MG/DL (8.5-10.1) Random Vancomycin Level 20.7 ug/mL Arterial Blood pH 7.423 (7.350-7.450) Arterial Blood Partial Pressure CO2 48.4 mmHg (35.0-45.0) H Arterial Blood Partial Pressure O2 97.5 mmHg (75.0-100.0) Arterial Blood HCO3 30.9 mmol/L (22.0-26.0) H Arterial Blood Oxygen Saturation 97.1 % (95-100) Arterial Blood Base Excess 5.5 (-2-2) H Mino Test Positive Plan Problems: (1) Acute respiratory failure Assessment & Plan: Acute respiratory failure, swollen tongue, airway compromise s/p emergency bedside tracheostomy yesterday for airway protection looks more stable today and comfortable. is planned for transfer to [facility] okay for transfer from surgical standpoint. has protected airway now dressings prn vent prn (2) Ground glass opacity present on imaging of lung (3) Pleural effusion (4) Hyperkalemia (5) Renal failure (6) Altered level of consciousness (7) blood culture: gram negative rods. (8) Rash and other nonspecific skin eruption (9) NSTEMI (non-ST elevated myocardial infarction) (10) ESRD (end stage renal disease) on dialysis (11) Elevated troponin (12) Foot ulcer (13) DM (diabetes mellitus) (14) CHF (congestive heart failure) (15) Pacemaker (16) Elevated troponin and foot ulcer (17) Cellulitis, abdominal wall (18) Encephalopathy acute (19) Pericardial effusion (20) Tachycardia (21) Sepsis Assessment & Plan: Needs venous access. Patient end-stage renal disease on hemodialysis with left upper extremity AV fistula and newly created right upper extremity AV fistula. Patient furthermore patient has a pacemaker. He has not had a PICC line placed yet recommend femoral triple-lumen catheter (22) HTN (hypertension) (23) Severe tongue swelling (24) Severe tongue swelling Jerman French Nov 09, 2018 14:07
[2018-11-09] MEDS: Dyna-Hex 2% Top Sol 2oz TOPIC SCH (20:53)
--- NOTE | 2018-11-09 21:23 | Infectious Diseases Prog Note ---
Assessment/Plan Problems: (1) Ground glass opacity present on imaging of lung Assessment & Plan: rule out atypical organisms in transplant patient , await fungal serology( crypt, cocci, histo, and aspergillosis ) and viral PCR for CMV and herpes . 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 bone scan ruled out osteomyelitis of the heel . will treat with vancomycin with HD for two weeks total . follow up with manager document (3) Cellulitis, abdominal wall Assessment & Plan: already on vancomycin improving (4) DM (diabetes mellitus) Assessment & Plan: recommend tight glycemic control to keep blood glucose between 100-140 (5) CHF (congestive heart failure) Assessment & Plan: on HD , renal is following, monitor daily weight (6) Encephalopathy acute Assessment & Plan: suspect metabolic, with high urea level, improving. (7) Severe tongue swelling Assessment & Plan: improving initially after steroids , but got worse today with respiratory compromise , had tracheostomy to protect his airway since respiratory status worsened . pulmonary is following (8) Pleural effusion Assessment & Plan: massive on the right, rule out infectious etiology, recommend thoracentesis and fluids to be sent for gram stain, culture, fungal and AFB, cytology and pathology Subjective ROS Limited/Unobtainable: Yes Allergies: Coded Allergies: CEPHALEXIN (Unverified Allergy, Unknown, 02/24/14) SULFAMETHOXAZOLE (Unverified Allergy, Unknown, 02/24/14) TRIMETHOPRIM (Unverified Allergy, Unknown, 02/24/14) Subjective he was looking better after he was trached emergently yesterday due to worsening respiratory failure , feels better , repeated CXR no significant changes , awake and responsive, no fever or chills, no cough or phlegm , no SOB . Objective Vital Signs Last 24 Hour Vital Signs Date Time Temp Pulse Resp B/P (MAP) Pulse Ox O2 Delivery O2 Flow Rate FiO2 11/09/18 21:15 87 19 100 11/09/18 20:53 87 113/57 11/09/18 19:19 86 15 100 11/09/18 19:00 78 12 100/62 (75) 98 11/09/18 18:00 87 18 130/40 (70) 98 11/09/18 17:00 88 14 144/56 (85) 99 11/09/18 16:39 87 23 100 11/09/18 16:00 88 11/09/18 16:00 40 11/09/18 16:00 98.2 87 16 134/46 (75) 98 11/09/18 16:00 Mechanical Ventilator 11/09/18 15:00 73 16 145/68 (93) 97 11/09/18 14:36 88 19 100 11/09/18 14:00 86 21 150/63 (92) 97 11/09/18 13:00 84 11 138/48 (78) 98 11/09/18 12:47 82 16 100 11/09/18 12:00 Mechanical Ventilator 11/09/18 12:00 98.0 83 11 144/37 (72) 98 11/09/18 12:00 60 11/09/18 12:00 40 11/09/18 11:00 76 17 120/39 (66) 99 11/09/18 10:33 81 18 100 11/09/18 10:00 73 15 90/75 (80) 99 11/09/18 09:00 71 14 126/101 (109) 98 11/09/18 09:00 71 126/101 11/09/18 08:30 73 16 100 11/09/18 08:23 Trach Collar 40.0 40 11/09/18 08:00 40 11/09/18 08:00 98.5 71 15 115/40 (65) 98 11/09/18 08:00 Mechanical Ventilator 11/09/18 08:00 74 11/09/18 07:00 78 5 134/42 (72) 99 11/09/18 06:51 76 17 100 11/09/18 06:00 84 16 138/51 (80) 100 11/09/18 05:00 72 16 138/47 (77) 100 11/09/18 04:41 83 16 100 11/09/18 04:00 75 11/09/18 04:00 40 11/09/18 04:00 Mechanical Ventilator 11/09/18 04:00 98.5 85 24 138/71 (93) 100 11/09/18 03:15 79 21 100 11/09/18 03:00 77 19 128/51 (76) 100 11/09/18 02:00 72 15 103/55 (71) 100 11/09/18 01:27 76 19 100 11/09/18 01:00 75 12 100/54 (69) 100 11/09/18 00:00 Mechanical Ventilator 11/09/18 00:00 99.1 78 16 95/51 (66) 100 11/08/18 23:00 78 16 95/51 (66) 100 11/08/18 22:57 80 16 100 11/08/18 22:00 82 23 112/39 (63) 100 Height (Feet): 5 Height (Inches): 10.00 Weight (Pounds): 200 General Appearance: WD/WN, no acute distress HEENT: normocephalic, atraumatic, anicteric, mucous membranes moist, PERRL, EOMI, supple, status post trach, other - tongue swelling Respiratory/Chest: chest wall non-tender, no respiratory distress, no accessory muscle use, decreased breath sounds Cardiovascular: normal peripheral pulses, normal rate, regular rhythm, no gallop/murmur, no JVD Abdomen: normal bowel sounds, soft, non tender, no organomegaly, non distended , no mass, no scars Genitourinary: normal external genitalia Extremities: no cyanosis, no clubbing Skin: no rash, no lesions, no ulcers 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: gold leaf roller 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 normal, alert, responsive Lymphatic: no neck adenopathy, no groin adenopathy Musculoskeletal: normal muscle bulk, no effusion Microbiology Date/Time Source Procedure Growth Status 11/07/18 06:20 Blood Blood Culture - Preliminary NO GROWTH AFTER 24 HOURS Resulted 11/07/18 06:10 Blood Blood Culture - Preliminary NO GROWTH AFTER 24 HOURS Resulted Laboratory Tests Test 11/09/18 05:00 11/09/18 11:35 White Blood Count 7.8 K/UL (4.8-10.8) Red Blood Count 5.12 M/UL (4.70-6.10) Hemoglobin 12.8 G/DL (14.2-18.0) L Hematocrit 42.9 % (42.0-52.0) Mean Corpuscular Volume 84 FL (80-99) Mean Corpuscular Hemoglobin 25.0 PG (27.0-31.0) L Mean Corpuscular Hemoglobin Concent 29.8 G/DL (32.0-36.0) L Red Cell Distribution Width 18.1 % (11.6-14.8) H Platelet Count 166 K/UL (150-450) Mean Platelet Volume 7.4 FL (6.5-10.1) Neutrophils (%) (Auto) 73.5 % (45.0-75.0) Lymphocytes (%) (Auto) 17.9 % (20.0-45.0) L Monocytes (%) (Auto) 7.9 % (1.0-10.0) Eosinophils (%) (Auto) 0.0 % (0.0-3.0) Basophils (%) (Auto) 0.6 % (0.0-2.0) Sodium Level 131 MMOL/L (136-145) L Potassium Level 4.8 MMOL/L (3.5-5.1) Chloride Level 90 MMOL/L (98-107) L Carbon Dioxide Level 28 MMOL/L (21-32) Anion Gap 13 mmol/L (5-15) Blood Urea Nitrogen 67 mg/dL (7-18) H Creatinine 9.4 MG/DL (0.55-1.30) H Estimat Glomerular Filtration Rate 5.6 mL/min (>60) Glucose Level 110 MG/DL (74-106) H Calcium Level 9.3 MG/DL (8.5-10.1) Random Vancomycin Level 20.7 ug/mL Arterial Blood pH 7.423 (7.350-7.450) Arterial Blood Partial Pressure CO2 48.4 mmHg (35.0-45.0) H Arterial Blood Partial Pressure O2 97.5 mmHg (75.0-100.0) Arterial Blood HCO3 30.9 mmol/L (22.0-26.0) H Arterial Blood Oxygen Saturation 97.1 % (95-100) Arterial Blood Base Excess 5.5 (-2-2) H Mino Test Positive Current Medications Medications (Trade) Dose Ordered Sig/Aleks Route PRN Reason Start Time Stop Time Status Last Admin Dose Admin Acetaminophen (Tylenol) 650 mg Q4H PRN ORAL Mild Pain/Temp > 100.5 11/05/18 22:45 11/30/18 22:44 Aspirin (Ecotrin) 81 mg DAILY ORAL 11/06/18 09:00 12/03/18 08:59 11/06/18 08:25 Atorvastatin Calcium (Lipitor) 10 mg BEDTIME ORAL 11/06/18 21:00 12/02/18 20:59 11/09/18 20:54 Carvedilol (Coreg) 6.25 mg EVERY 12 HOURS ORAL 11/06/18 09:00 12/01/18 08:59 11/09/18 20:53 Chlorhexidine Gluconate (Glo-Hex 2%) 1 applic DAILY@2000 TOPIC 11/08/18 20:00 12/08/18 19:59 11/09/18 20:53 Dextrose 1,000 ml @ 50 mls/hr Q20H IV 11/06/18 18:30 12/06/18 18:29 11/09/18 05:53 Dextrose (Dextrose 50%) 25 ml Q30M PRN IV Hypoglycemia 11/05/18 22:15 11/30/18 22:44 11/06/18 15:46 Dextrose (Dextrose 50%) 50 ml Q30M PRN IV Hypoglycemia 11/05/18 22:15 11/30/18 22:44 Hydralazine HCl (Apresoline) 10 mg Q6H PRN IV For High Blood Pressure 11/08/18 13:15 12/08/18 13:14 Insulin Aspart (NovoLOG) BEFORE MEALS AND HS SUBQ 11/06/18 06:30 12/01/18 06:29 11/09/18 20:59 Iopamidol (Isovue-370 150ml) 150 ml NOW PRN INJ Radiology Procedure 11/09/18 12:45 11/11/18 12:44 Morphine Sulfate (Morphine Sulfate) 4 mg Q4H PRN IVP for moderate pain 11/08/18 15:30 11/15/18 15:29 11/09/18 17:43 Nicotine (Nicoderm) 1 patch Q24H TDERMAL 11/05/18 22:15 12/01/18 22:14 11/08/18 20:55 Pantoprazole (Protonix) 40 mg EVERY 12 HOURS IVP 11/06/18 21:00 12/06/18 20:59 11/09/18 20:53 Tacrolimus (Prograf) 2 mg MoWeFr@0000,1200 ORAL 11/06/18 00:00 12/02/18 00:00 Tacrolimus (Prograf) 2 mg SuTuThSa@0900,2100 ORAL 11/07/18 09:00 12/01/18 20:59 Francois Landis M.D. Nov 09, 2018 21:23
[2018-11-10] VITALS (24 sets, daily range): BP systolic 96–137; BP diastolic 13–77
[2018-11-10] MEDS: NovoLOG Insulin Flexpen SUBQ SCH ×4 (05:38→20:20)
[2018-11-10] MEDS: Morphine Sulfate 4mg/ml Inj (IV USE ONLY) IVP PRN ×4 (05:39→20:11)
[2018-11-10 06:36] LABS: BASOPHILS % (AUTO) 0.6 % (0.0-2.0); HEMATOCRIT 42.1 % (42.0-52.0); HEMOGLOBIN 12.8 G/DL (14.2-18.0); MEAN CORPUSCULAR VOLUME 83 FL (80-99); MONOCYTES % (AUTO) 8.7 % (1.0-10.0); NEUTROPHILS % (AUTO) 73.5 % (45.0-75.0); PLATELET COUNT 163 K/UL (150-450); RED BLOOD COUNT 5.06 M/UL (4.70-6.10); RED CELL DISTRIBUTION WIDTH 17.9 % (11.6-14.8); WHITE BLOOD COUNT 7.8 K/UL (4.8-10.8)
[2018-11-10 06:47] LABS: INR 1.2 (0.9-1.1)
[2018-11-10 06:58] LABS: ALANINE AMINOTRANSFERASE 12 U/L (12-78); ALBUMIN 2.8 G/DL (3.4-5.0); ALBUMIN/GLOBULIN RATIO 0.7 (1.0-2.7); ALKALINE PHOSPHATASE 84 U/L (46-116); ANION GAP 16 mmol/L (5-15); ASPARTATE AMINO TRANSFERASE 19 U/L (15-37); BILIRUBIN,TOTAL 0.6 MG/DL (0.2-1.0); BLOOD UREA NITROGEN 54 mg/dL (7-18); CALCIUM 9.2 MG/DL (8.5-10.1); CARBON DIOXIDE 27 MMOL/L (21-32); CHLORIDE 90 MMOL/L (98-107); CREATININE 8.3 MG/DL (0.55-1.30); PHOSPHORUS 5.8 MG/DL (2.5-4.9); POTASSIUM 4.3 MMOL/L (3.5-5.1); SODIUM 133 MMOL/L (136-145)
[2018-11-10] MEDS: Aspirin EC 81mg tab ORAL SCH (08:29)
[2018-11-10] MEDS: Pantoprazole Inj IVP SCH ×2 (08:29→20:10)
[2018-11-10] MEDS: Carvedilol 6.25mg Tab ORAL SCH ×2 (08:30→21:42)
--- NOTE | 2018-11-10 12:01 | GI Progress Note ---
Assessment/Plan Problems: (1) Foot ulcer ICD Codes: L97.509 - Non-pressure chronic ulcer of other part of unspecified foot with unspecified severity SNOMED: 01222639 Qualifiers: Qualified Codes: L97.511 - Non-pressure chronic ulcer of other part of right foot limited to breakdown of skin (2) DM (diabetes mellitus) ICD Codes: E11.9 - Type 2 diabetes mellitus without complications SNOMED: 82804058 (3) Transplant ICD Codes: Z94.9 - Transplanted organ and tissue status, unspecified SNOMED: 118930751 Status: unchanged Status Narrative Discussed with Dr. Escalera. Assessment/Plan History of liver transplant, currently on Prograf constipation Patient now in ICU, status post em,emergency tracheostomy NGT placement, may need PEG if respiratory status does not improve NGTFs prn transfusions ppi zofran prn Bowel regimen Trend LFTs follow labs The patient was seen and examined at bedside and all new and available data was reviewed in the patients chart. I agree with the above findings, impression and plan. (Patient seen earlier today. Signature stamp does not reflect patient encounter time.). - Jorge Escalera MD Subjective Subjective Limited Objective Last 24 Hour Vital Signs Date Time Temp Pulse Resp B/P (MAP) Pulse Ox O2 Delivery O2 Flow Rate FiO2 11/10/18 11:00 82 12 112/61 (78) 98 11/10/18 10:39 98 11/10/18 10:00 81 14 109/13 (45) 97 11/10/18 09:00 83 17 127/37 (67) 100 11/10/18 08:54 81 16 100 11/10/18 08:30 84 122/30 11/10/18 08:00 98.5 82 18 119/19 (52) 99 11/10/18 08:00 40 11/10/18 08:00 Mechanical Ventilator 11/10/18 08:00 85 11/10/18 07:08 84 17 100 11/10/18 07:00 84 0 122/30 (60) 99 11/10/18 06:09 98.7 11/10/18 06:00 90 16 126/36 (66) 99 11/10/18 05:00 92 20 135/44 (74) 99 11/10/18 04:56 91 17 100 11/10/18 04:00 94 11/10/18 04:00 98.7 93 20 137/37 (70) 98 11/10/18 04:00 Mechanical Ventilator 11/10/18 04:00 40 11/10/18 03:10 88 16 100 11/10/18 03:00 87 18 132/49 (76) 98 11/10/18 02:00 84 4 117/42 (67) 98 11/10/18 01:23 84 20 100 11/10/18 01:00 86 13 120/77 (91) 98 11/10/18 00:00 Mechanical Ventilator 11/10/18 00:00 85 11/10/18 00:00 99.0 85 16 112/33 (59) 100 11/10/18 00:00 40 11/09/18 23:10 86 17 100 11/09/18 23:00 85 15 117/54 (75) 98 11/09/18 22:00 86 18 120/50 (73) 99 11/09/18 21:15 87 19 100 11/09/18 21:00 87 13 121/64 (83) 99 11/09/18 20:53 87 113/57 11/09/18 20:00 98.4 81 17 137/69 (91) 99 11/09/18 20:00 78 11/09/18 20:00 40 11/09/18 20:00 Mechanical Ventilator 11/09/18 19:19 86 15 100 11/09/18 19:00 78 12 100/62 (75) 98 11/09/18 18:00 87 18 130/40 (70) 98 11/09/18 17:00 88 14 144/56 (85) 99 11/09/18 16:39 87 23 100 11/09/18 16:00 88 11/09/18 16:00 40 11/09/18 16:00 98.2 87 16 134/46 (75) 98 11/09/18 16:00 Mechanical Ventilator 11/09/18 15:00 73 16 145/68 (93) 97 11/09/18 14:36 88 19 100 11/09/18 14:00 86 21 150/63 (92) 97 11/09/18 13:00 84 11 138/48 (78) 98 11/09/18 12:47 82 16 100 11/09/18 12:00 Mechanical Ventilator 11/09/18 12:00 98.0 83 11 144/37 (72) 98 11/09/18 12:00 60 11/09/18 12:00 40 Intake and Output 11/09/18 11/10/18 19:00 07:00 Intake Total 500 ml 600 ml Output Total 3000 ml 0 ml Balance -2500 ml 600 ml IV Total 500 ml 550 ml Other 50 ml Output Urine Total 0 ml 0 ml Hemodialysis UF 3000 ml Laboratory Tests Test 11/10/18 05:20 White Blood Count 7.8 K/UL (4.8-10.8) Red Blood Count 5.06 M/UL (4.70-6.10) Hemoglobin 12.8 G/DL (14.2-18.0) L Hematocrit 42.1 % (42.0-52.0) Mean Corpuscular Volume 83 FL (80-99) Mean Corpuscular Hemoglobin 25.3 PG (27.0-31.0) L Mean Corpuscular Hemoglobin Concent 30.4 G/DL (32.0-36.0) L Red Cell Distribution Width 17.9 % (11.6-14.8) H Platelet Count 163 K/UL (150-450) Mean Platelet Volume 6.7 FL (6.5-10.1) Neutrophils (%) (Auto) 73.5 % (45.0-75.0) Lymphocytes (%) (Auto) 17.0 % (20.0-45.0) L Monocytes (%) (Auto) 8.7 % (1.0-10.0) Eosinophils (%) (Auto) 0.0 % (0.0-3.0) Basophils (%) (Auto) 0.6 % (0.0-2.0) Prothrombin Time 12.1 SEC (9.30-11.50) H Prothromb Time International Ratio 1.2 (0.9-1.1) H Activated Partial Thromboplast Time 34 SEC (23-33) H Sodium Level 133 MMOL/L (136-145) L Potassium Level 4.3 MMOL/L (3.5-5.1) Chloride Level 90 MMOL/L (98-107) L Carbon Dioxide Level 27 MMOL/L (21-32) Anion Gap 16 mmol/L (5-15) H Blood Urea Nitrogen 54 mg/dL (7-18) H Creatinine 8.3 MG/DL (0.55-1.30) H Estimat Glomerular Filtration Rate 6.5 mL/min (>60) Glucose Level 92 MG/DL (74-106) Calcium Level 9.2 MG/DL (8.5-10.1) Phosphorus Level 5.8 MG/DL (2.5-4.9) H Magnesium Level 1.8 MG/DL (1.8-2.4) Total Bilirubin 0.6 MG/DL (0.2-1.0) Aspartate Amino Transf (AST/SGOT) 19 U/L (15-37) Alanine Aminotransferase (ALT/SGPT) 12 U/L (12-78) Alkaline Phosphatase 84 U/L (46-116) Total Protein 6.9 G/DL (6.4-8.2) Albumin 2.8 G/DL (3.4-5.0) L Globulin 4.1 g/dL Albumin/Globulin Ratio 0.7 (1.0-2.7) L Height (Feet): 5 Height (Inches): 10.00 Weight (Pounds): 200 General Appearance: WD/WN, no apparent distress, alert Cardiovascular: normal rate Respiratory/Chest: normal breath sounds, no respiratory distress, other - s/p tracheostomy Abdominal Exam: normal bowel sounds, non tender, soft, other - NGT present Extremities: non-tender Kelvin Briggs NP Nov 10, 2018 12:01
--- NOTE | 2018-11-10 12:47 | Nephrology Progress Note ---
Assessment/Plan Problem List: (1) ESRD (end stage renal disease) on dialysis (2) Foot ulcer (3) CHF (congestive heart failure) (4) Pacemaker (5) Acute respiratory failure Assessment: with Co2 retention Assessment ESRD with high K and SOB on admit Foot ulcer, likely infected High Troponin likely NSTMI Pacer , Pleural effusion s/p CABGS s/p Liver transplant Plan Now has tracheostomy DC IV fluid discussed with Dr Mendoza 11/06 DC unnecessary pills as patient NPO One dose of solumedrol 11/06 and again 11/08 I adjust Vanco dosages monitor Vanco level start tube feeding per cardio and ID Poor Prognosis Podiatry and Vascular surgical eval Subjective ROS Limited/Unobtainable: No Objective Objective Last 24 Hour Vital Signs Date Time Temp Pulse Resp B/P (MAP) Pulse Ox O2 Delivery O2 Flow Rate FiO2 11/10/18 11:00 82 12 112/61 (78) 98 11/10/18 10:39 98 11/10/18 10:00 81 14 109/13 (45) 97 11/10/18 09:00 83 17 127/37 (67) 100 11/10/18 08:54 81 16 100 11/10/18 08:30 84 122/30 11/10/18 08:00 98.5 82 18 119/19 (52) 99 11/10/18 08:00 40 11/10/18 08:00 Mechanical Ventilator 11/10/18 08:00 85 11/10/18 07:08 84 17 100 11/10/18 07:00 84 0 122/30 (60) 99 11/10/18 06:09 98.7 11/10/18 06:00 90 16 126/36 (66) 99 11/10/18 05:00 92 20 135/44 (74) 99 11/10/18 04:56 91 17 100 11/10/18 04:00 94 11/10/18 04:00 98.7 93 20 137/37 (70) 98 11/10/18 04:00 Mechanical Ventilator 11/10/18 04:00 40 11/10/18 03:10 88 16 100 11/10/18 03:00 87 18 132/49 (76) 98 11/10/18 02:00 84 4 117/42 (67) 98 11/10/18 01:23 84 20 100 11/10/18 01:00 86 13 120/77 (91) 98 11/10/18 00:00 Mechanical Ventilator 11/10/18 00:00 85 11/10/18 00:00 99.0 85 16 112/33 (59) 100 11/10/18 00:00 40 11/09/18 23:10 86 17 100 11/09/18 23:00 85 15 117/54 (75) 98 11/09/18 22:00 86 18 120/50 (73) 99 11/09/18 21:15 87 19 100 11/09/18 21:00 87 13 121/64 (83) 99 11/09/18 20:53 87 113/57 11/09/18 20:00 98.4 81 17 137/69 (91) 99 11/09/18 20:00 78 11/09/18 20:00 40 11/09/18 20:00 Mechanical Ventilator 11/09/18 19:19 86 15 100 11/09/18 19:00 78 12 100/62 (75) 98 11/09/18 18:00 87 18 130/40 (70) 98 11/09/18 17:00 88 14 144/56 (85) 99 11/09/18 16:39 87 23 100 11/09/18 16:00 88 11/09/18 16:00 40 11/09/18 16:00 98.2 87 16 134/46 (75) 98 11/09/18 16:00 Mechanical Ventilator 11/09/18 15:00 73 16 145/68 (93) 97 11/09/18 14:36 88 19 100 11/09/18 14:00 86 21 150/63 (92) 97 11/09/18 13:00 84 11 138/48 (78) 98 11/09/18 12:47 82 16 100 Intake and Output 11/09/18 11/10/18 19:00 07:00 Intake Total 500 ml 600 ml Output Total 3000 ml 0 ml Balance -2500 ml 600 ml IV Total 500 ml 550 ml Other 50 ml Output Urine Total 0 ml 0 ml Hemodialysis UF 3000 ml Laboratory Tests 11/10/18 05:20: White Blood Count 7.8, Red Blood Count 5.06, Hemoglobin 12.8L, Hematocrit 42.1, Mean Corpuscular Volume 83, Mean Corpuscular Hemoglobin 25.3L, Mean Corpuscular Hemoglobin Concent 30.4L, Red Cell Distribution Width 17.9H, Platelet Count 163 , Mean Platelet Volume 6.7, Neutrophils (%) (Auto) 73.5, Lymphocytes (%) (Auto) 17.0L, Monocytes (%) (Auto) 8.7, Eosinophils (%) (Auto) 0.0, Basophils (%) (Auto ) 0.6, Prothrombin Time 12.1H, Prothromb Time International Ratio 1.2H, Activated Partial Thromboplast Time 34H, Sodium Level 133L, Potassium Level 4.3 , Chloride Level 90L, Carbon Dioxide Level 27, Anion Gap 16H, Blood Urea Nitrogen 54H, Creatinine 8.3H, Estimat Glomerular Filtration Rate 6.5, Glucose Level 92, Calcium Level 9.2, Phosphorus Level 5.8H, Magnesium Level 1.8, Total Bilirubin 0.6, Aspartate Amino Transf (AST/SGOT) 19, Alanine Aminotransferase ( ALT/SGPT) 12, Alkaline Phosphatase 84, Total Protein 6.9, Albumin 2.8L, Globulin 4.1, Albumin/Globulin Ratio 0.7L Height (Feet): 5 Height (Inches): 10.00 Weight (Pounds): 200 EENT: other - trach to vent Respiratory/Chest: decreased breath sounds Abdomen: distended Objective no other change Nakul Stevens MD Nov 10, 2018 12:47
--- NOTE | 2018-11-10 13:13 | Pulmonology Progress Note ---
Assessment/Plan Assessment/Plan 1. No SVC syndrome on CTA 2. End-stage renal disease, on dialysis, status post multiple upper extremity vascular procedures. 3. Coronary artery bypass surgery. 4. Diabetes. 5. Dysphonia, tongue swelling; s/p trach 6. Resp failure, hypercapneic PLAN: trach/vent weaning parameters are good CT neck pdg start feeds wean Subjective ROS Limited/Unobtainable: Yes Allergies: Coded Allergies: CEPHALEXIN (Unverified Allergy, Unknown, 02/24/14) SULFAMETHOXAZOLE (Unverified Allergy, Unknown, 02/24/14) TRIMETHOPRIM (Unverified Allergy, Unknown, 02/24/14) Objective Last 24 Hour Vital Signs Date Time Temp Pulse Resp B/P (MAP) Pulse Ox O2 Delivery O2 Flow Rate FiO2 11/10/18 13:00 80 16 115/25 (55) 99 11/10/18 12:47 76 15 40 11/10/18 12:00 40 11/10/18 12:00 81 11/10/18 12:00 98.2 81 15 110/13 (45) 99 11/10/18 12:00 Mechanical Ventilator 11/10/18 11:00 82 12 112/61 (78) 98 11/10/18 10:39 98 11/10/18 10:00 81 14 109/13 (45) 97 11/10/18 09:00 83 17 127/37 (67) 100 11/10/18 08:54 81 16 100 11/10/18 08:30 84 122/30 11/10/18 08:00 98.5 82 18 119/19 (52) 99 11/10/18 08:00 40 11/10/18 08:00 Mechanical Ventilator 11/10/18 08:00 85 11/10/18 07:08 84 17 100 11/10/18 07:00 84 0 122/30 (60) 99 11/10/18 06:09 98.7 11/10/18 06:00 90 16 126/36 (66) 99 11/10/18 05:00 92 20 135/44 (74) 99 11/10/18 04:56 91 17 100 11/10/18 04:00 94 11/10/18 04:00 98.7 93 20 137/37 (70) 98 11/10/18 04:00 Mechanical Ventilator 11/10/18 04:00 40 11/10/18 03:10 88 16 100 11/10/18 03:00 87 18 132/49 (76) 98 11/10/18 02:00 84 4 117/42 (67) 98 11/10/18 01:23 84 20 100 11/10/18 01:00 86 13 120/77 (91) 98 11/10/18 00:00 Mechanical Ventilator 11/10/18 00:00 85 11/10/18 00:00 99.0 85 16 112/33 (59) 100 11/10/18 00:00 40 11/09/18 23:10 86 17 100 11/09/18 23:00 85 15 117/54 (75) 98 11/09/18 22:00 86 18 120/50 (73) 99 11/09/18 21:15 87 19 100 11/09/18 21:00 87 13 121/64 (83) 99 11/09/18 20:53 87 113/57 11/09/18 20:00 98.4 81 17 137/69 (91) 99 11/09/18 20:00 78 11/09/18 20:00 40 11/09/18 20:00 Mechanical Ventilator 11/09/18 19:19 86 15 100 11/09/18 19:00 78 12 100/62 (75) 98 11/09/18 18:00 87 18 130/40 (70) 98 11/09/18 17:00 88 14 144/56 (85) 99 11/09/18 16:39 87 23 100 11/09/18 16:00 88 11/09/18 16:00 40 11/09/18 16:00 98.2 87 16 134/46 (75) 98 11/09/18 16:00 Mechanical Ventilator 11/09/18 15:00 73 16 145/68 (93) 97 11/09/18 14:36 88 19 100 11/09/18 14:00 86 21 150/63 (92) 97 Intake and Output 11/09/18 11/10/18 19:00 07:00 Intake Total 500 ml 600 ml Output Total 3000 ml 0 ml Balance -2500 ml 600 ml IV Total 500 ml 550 ml Other 50 ml Output Urine Total 0 ml 0 ml Hemodialysis UF 3000 ml Objective trach General Appearance: no acute distress HEENT: anicteric Respiratory/Chest: decreased breath sounds Cardiovascular: normal rate Laboratory Tests 11/10/18 05:20: White Blood Count 7.8, Red Blood Count 5.06, Hemoglobin 12.8L, Hematocrit 42.1, Mean Corpuscular Volume 83, Mean Corpuscular Hemoglobin 25.3L, Mean Corpuscular Hemoglobin Concent 30.4L, Red Cell Distribution Width 17.9H, Platelet Count 163 , Mean Platelet Volume 6.7, Neutrophils (%) (Auto) 73.5, Lymphocytes (%) (Auto) 17.0L, Monocytes (%) (Auto) 8.7, Eosinophils (%) (Auto) 0.0, Basophils (%) (Auto ) 0.6, Prothrombin Time 12.1H, Prothromb Time International Ratio 1.2H, Activated Partial Thromboplast Time 34H, Sodium Level 133L, Potassium Level 4.3 , Chloride Level 90L, Carbon Dioxide Level 27, Anion Gap 16H, Blood Urea Nitrogen 54H, Creatinine 8.3H, Estimat Glomerular Filtration Rate 6.5, Glucose Level 92, Calcium Level 9.2, Phosphorus Level 5.8H, Magnesium Level 1.8, Total Bilirubin 0.6, Aspartate Amino Transf (AST/SGOT) 19, Alanine Aminotransferase ( ALT/SGPT) 12, Alkaline Phosphatase 84, Total Protein 6.9, Albumin 2.8L, Globulin 4.1, Albumin/Globulin Ratio 0.7L Current Medications Medications (Trade) Dose Ordered Sig/Aleks Route PRN Reason Start Time Stop Time Status Last Admin Dose Admin Acetaminophen (Tylenol) 650 mg Q4H PRN ORAL Mild Pain/Temp > 100.5 11/05/18 22:45 11/30/18 22:44 Aspirin (Ecotrin) 81 mg DAILY ORAL 11/06/18 09:00 12/03/18 08:59 11/10/18 08:29 Atorvastatin Calcium (Lipitor) 10 mg BEDTIME ORAL 11/06/18 21:00 12/02/18 20:59 11/09/18 20:54 Carvedilol (Coreg) 6.25 mg EVERY 12 HOURS ORAL 11/06/18 09:00 12/01/18 08:59 11/10/18 08:30 Chlorhexidine Gluconate (Glo-Hex 2%) 1 applic DAILY@1999 TOPIC 11/08/18 20:00 12/08/18 19:59 11/09/18 20:53 Dextrose (Dextrose 50%) 25 ml Q30M PRN IV Hypoglycemia 11/05/18 22:15 11/30/18 22:44 11/06/18 15:46 Dextrose (Dextrose 50%) 50 ml Q30M PRN IV Hypoglycemia 11/05/18 22:15 11/30/18 22:44 Hydralazine HCl (Apresoline) 10 mg Q6H PRN IV For High Blood Pressure 11/08/18 13:15 12/08/18 13:14 Insulin Aspart (NovoLOG) BEFORE MEALS AND HS SUBQ 11/06/18 06:30 12/01/18 06:29 11/10/18 11:46 Iopamidol (Isovue-370 150ml) 150 ml NOW PRN INJ Radiology Procedure 11/09/18 12:45 11/11/18 12:44 Morphine Sulfate (Morphine Sulfate) 4 mg Q4H PRN IVP for moderate pain 11/08/18 15:30 11/15/18 15:29 11/10/18 11:01 Nicotine (Nicoderm) 1 patch Q24H TDERMAL 11/05/18 22:15 12/01/18 22:14 11/09/18 22:15 Pantoprazole (Protonix) 40 mg EVERY 12 HOURS IVP 11/06/18 21:00 12/06/18 20:59 11/10/18 08:29 Tacrolimus (Prograf) 2 mg MoWeFr@0000,1200 ORAL 11/06/18 00:00 12/02/18 00:00 Tacrolimus (Prograf) 2 mg SuTuThSa@0900,2100 ORAL 11/07/18 09:00 12/01/18 20:59 11/10/18 08:32 Saroj Mendoza MD Nov 10, 2018 13:13
--- NOTE | 2018-11-10 13:51 | Progress Note ---
DATE: 11/09/2018 SUBJECTIVE: This is an elderly male, status post trach yesterday. He was having a dialysis this morning. Sleeping in the bed. Looks comfortable. Blood pressure is controlled. OBJECTIVE: VITAL SIGNS: Blood pressure is 126/101, pulse 71, respirations 14, temperature 98. HEENT: NAD. CHEST: Bilaterally clear. CARDIOVASCULAR: Regular rhythm. ABDOMEN: Soft. EXTREMITIES: CCE. NEUROLOGICAL: Generalized weakness. LABORATORY EXAMINATION: White count 7.8, hemoglobin 13. Chemistry panel, sodium 131, potassium 4.8, BUN 67, creatinine 9.4, glucose is 110. Albumin is 3.1. ASSESSMENT: 1. Impending acute respiratory failure, status post tracheostomy. 2. Angioedema. 3. Hypertension. 4. Status post liver transplant. 5. End-stage renal disease. 6. Diabetes. PLAN: 1. We will continue ventilator. 2. Continue bronchodilator treatments. 3. We will start NG tube feeding. 4. Continue tacrolimus, Lipitor, PPIs. 5. Cardiology, Pulmonary, GI, and Nephrology is on the case. Discussed with Dr. Mendoza and charge nurse. Jamari Carter M.D. DR: WALDO JOB#: [id number] CC:
--- NOTE | 2018-11-10 14:38 | Cardiac Electrophysiology PN ---
Assessment/Plan Assessment/Plan 1. Troponin elevation. No chest pain. Already revascularized by CABG. Likely due to renal failure. On Coreg 6.25 mg bid, aspirin and Lipitor 2. Status post coronary bypass graft 3. Nonsustained ventricular tachycardia. The patient has history of prior myocardial infarction and bypass. EF 55%. No Syncope 4. Congestive heart failure. On hemodialysis, per Dr. Stevens. 5. End-stage renal disease, on hemodialysis. 6. Status post right sided Med[employer]onic dual chamber pacemaker with Nl Fx. 7. Right foot ulcer. Antibiotic per Dr. Landis. Foot surgery by Dr. Huizar pending 8. History of liver transplant on Prograf 9. Anaphylaxis? causing facial edema and Respiratory failure, ? etiology S/P Emergency tracheostomy. On T tube now DW RN Subjective Subjective A paced in ICU off pressors.Off the vent on T tube.Alert. Feeding via NG started. Objective Last 24 Hour Vital Signs Date Time Temp Pulse Resp B/P (MAP) Pulse Ox O2 Delivery O2 Flow Rate FiO2 11/10/18 14:00 82 16 105/25 (51) 95 11/10/18 13:00 80 16 115/25 (55) 99 11/10/18 12:47 76 15 40 11/10/18 12:00 40 11/10/18 12:00 81 11/10/18 12:00 98.2 81 15 110/13 (45) 99 11/10/18 12:00 Mechanical Ventilator 11/10/18 11:00 82 12 112/61 (78) 98 11/10/18 10:39 98 11/10/18 10:00 81 14 109/13 (45) 97 11/10/18 09:00 83 17 127/37 (67) 100 11/10/18 08:54 81 16 100 11/10/18 08:30 84 122/30 11/10/18 08:00 98.5 82 18 119/19 (52) 99 11/10/18 08:00 40 11/10/18 08:00 Mechanical Ventilator 11/10/18 08:00 85 11/10/18 07:08 84 17 100 11/10/18 07:00 84 0 122/30 (60) 99 11/10/18 06:09 98.7 11/10/18 06:00 90 16 126/36 (66) 99 11/10/18 05:00 92 20 135/44 (74) 99 11/10/18 04:56 91 17 100 11/10/18 04:00 94 11/10/18 04:00 98.7 93 20 137/37 (70) 98 11/10/18 04:00 Mechanical Ventilator 11/10/18 04:00 40 11/10/18 03:10 88 16 100 11/10/18 03:00 87 18 132/49 (76) 98 11/10/18 02:00 84 4 117/42 (67) 98 11/10/18 01:23 84 20 100 11/10/18 01:00 86 13 120/77 (91) 98 11/10/18 00:00 Mechanical Ventilator 11/10/18 00:00 85 11/10/18 00:00 99.0 85 16 112/33 (59) 100 11/10/18 00:00 40 11/09/18 23:10 86 17 100 11/09/18 23:00 85 15 117/54 (75) 98 11/09/18 22:00 86 18 120/50 (73) 99 11/09/18 21:15 87 19 100 11/09/18 21:00 87 13 121/64 (83) 99 11/09/18 20:53 87 113/57 11/09/18 20:00 98.4 81 17 137/69 (91) 99 11/09/18 20:00 78 11/09/18 20:00 40 11/09/18 20:00 Mechanical Ventilator 11/09/18 19:19 86 15 100 11/09/18 19:00 78 12 100/62 (75) 98 11/09/18 18:00 87 18 130/40 (70) 98 11/09/18 17:00 88 14 144/56 (85) 99 11/09/18 16:39 87 23 100 11/09/18 16:00 88 11/09/18 16:00 40 11/09/18 16:00 98.2 87 16 134/46 (75) 98 11/09/18 16:00 Mechanical Ventilator 11/09/18 15:00 73 16 145/68 (93) 97 11/09/18 14:36 88 19 100 Intake and Output 11/09/18 11/10/18 19:00 07:00 Intake Total 500 ml 600 ml Output Total 3000 ml 0 ml Balance -2500 ml 600 ml IV Total 500 ml 550 ml Other 50 ml Output Urine Total 0 ml 0 ml Hemodialysis UF 3000 ml Laboratory Tests Test 11/10/18 05:20 White Blood Count 7.8 K/UL (4.8-10.8) Red Blood Count 5.06 M/UL (4.70-6.10) Hemoglobin 12.8 G/DL (14.2-18.0) L Hematocrit 42.1 % (42.0-52.0) Mean Corpuscular Volume 83 FL (80-99) Mean Corpuscular Hemoglobin 25.3 PG (27.0-31.0) L Mean Corpuscular Hemoglobin Concent 30.4 G/DL (32.0-36.0) L Red Cell Distribution Width 17.9 % (11.6-14.8) H Platelet Count 163 K/UL (150-450) Mean Platelet Volume 6.7 FL (6.5-10.1) Neutrophils (%) (Auto) 73.5 % (45.0-75.0) Lymphocytes (%) (Auto) 17.0 % (20.0-45.0) L Monocytes (%) (Auto) 8.7 % (1.0-10.0) Eosinophils (%) (Auto) 0.0 % (0.0-3.0) Basophils (%) (Auto) 0.6 % (0.0-2.0) Prothrombin Time 12.1 SEC (9.30-11.50) H Prothromb Time International Ratio 1.2 (0.9-1.1) H Activated Partial Thromboplast Time 34 SEC (23-33) H Sodium Level 133 MMOL/L (136-145) L Potassium Level 4.3 MMOL/L (3.5-5.1) Chloride Level 90 MMOL/L (98-107) L Carbon Dioxide Level 27 MMOL/L (21-32) Anion Gap 16 mmol/L (5-15) H Blood Urea Nitrogen 54 mg/dL (7-18) H Creatinine 8.3 MG/DL (0.55-1.30) H Estimat Glomerular Filtration Rate 6.5 mL/min (>60) Glucose Level 92 MG/DL (74-106) Calcium Level 9.2 MG/DL (8.5-10.1) Phosphorus Level 5.8 MG/DL (2.5-4.9) H Magnesium Level 1.8 MG/DL (1.8-2.4) Total Bilirubin 0.6 MG/DL (0.2-1.0) Aspartate Amino Transf (AST/SGOT) 19 U/L (15-37) Alanine Aminotransferase (ALT/SGPT) 12 U/L (12-78) Alkaline Phosphatase 84 U/L (46-116) Total Protein 6.9 G/DL (6.4-8.2) Albumin 2.8 G/DL (3.4-5.0) L Globulin 4.1 g/dL Albumin/Globulin Ratio 0.7 (1.0-2.7) L Objective HEAD AND NECK: No JVD.Tracheostomy intact LUNGS: Coarse rhonchi. CARDIOVASCULAR: Regular S1 and S2 with no gallop. Sternotomy is intact Pacemaker in the right subclavian ABDOMEN: Soft. EXTREMITIES: 1+ pitting edema Shivam Sharpe MD Nov 10, 2018 14:38
--- NOTE | 2018-11-10 15:23 | Infectious Diseases Prog Note ---
Assessment/Plan Problems: (1) Ground glass opacity present on imaging of lung Assessment & Plan: rule out atypical organisms in transplant patient , await fungal serology( crypt, cocci, histo, and aspergillosis ) and viral PCR for CMV and herpes . 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 bone scan ruled out osteomyelitis of the heel . will treat with vancomycin with HD for two weeks total . follow up with [employer] (3) Cellulitis, abdominal wall Assessment & Plan: already on vancomycin improving (4) DM (diabetes mellitus) Assessment & Plan: recommend tight glycemic control to keep blood glucose between 100-140 (5) CHF (congestive heart failure) Assessment & Plan: on HD , renal is following, monitor daily weight (6) Encephalopathy acute Assessment & Plan: suspect metabolic, with high urea level, improving. (7) Severe tongue swelling Assessment & Plan: improving initially after steroids , but got worse today with respiratory compromise , had tracheostomy to protect his airway since respiratory status worsened . pulmonary is following (8) Pleural effusion Assessment & Plan: massive on the right, rule out infectious etiology, recommend thoracentesis and fluids to be sent for gram stain, culture, fungal and AFB, cytology and pathology Subjective Constitutional: Reports: no symptoms HEENT: Reports: dysphagia, congestion Respiratory: Reports: no symptoms Breasts: Reports: no symptoms Cardiovascular: Reports: no symptoms Gastrointestinal/Abdominal: Reports: no symptoms Genitourinary: Reports: no symptoms Neurologic: Reports: weakness Psychiatric: Reports: no symptoms Skin: Reports: ulcer Endocrine: Reports: no symptoms Hematologic: Reports: no symptoms Musculoskeletal: Reports: no symptoms Allergies: Coded Allergies: CEPHALEXIN (Unverified Allergy, Unknown, 02/24/14) SULFAMETHOXAZOLE (Unverified Allergy, Unknown, 02/24/14) TRIMETHOPRIM (Unverified Allergy, Unknown, 02/24/14) Subjective he was feeling ok after he was trached emergently due to worsening respiratory failure, feels better , repeated CXR no significant changes , awake and responsive, no fever or chills, no cough or phlegm , no SOB . Objective Vital Signs Last 24 Hour Vital Signs Date Time Temp Pulse Resp B/P (MAP) Pulse Ox O2 Delivery O2 Flow Rate FiO2 3/26/19 15:00 80 16 96/40 (58) 98 11/10/18 14:43 82 16 40 11/10/18 14:00 82 16 105/25 (51) 95 11/10/18 13:00 80 16 115/25 (55) 99 11/10/18 12:47 76 15 40 11/10/18 12:00 40 11/10/18 12:00 81 11/10/18 12:00 98.2 81 15 110/13 (45) 99 11/10/18 12:00 Mechanical Ventilator 11/10/18 11:00 82 12 112/61 (78) 98 11/10/18 10:39 98 11/10/18 10:00 81 14 109/13 (45) 97 11/10/18 09:00 83 17 127/37 (67) 100 11/10/18 08:54 81 16 100 11/10/18 08:30 84 122/30 11/10/18 08:00 98.5 82 18 119/19 (52) 99 11/10/18 08:00 40 11/10/18 08:00 Mechanical Ventilator 11/10/18 08:00 85 11/10/18 07:08 84 17 100 11/10/18 07:00 84 0 122/30 (60) 99 11/10/18 06:09 98.7 11/10/18 06:00 90 16 126/36 (66) 99 11/10/18 05:00 92 20 135/44 (74) 99 11/10/18 04:56 91 17 100 11/10/18 04:00 94 11/10/18 04:00 98.7 93 20 137/37 (70) 98 11/10/18 04:00 Mechanical Ventilator 11/10/18 04:00 40 11/10/18 03:10 88 16 100 11/10/18 03:00 87 18 132/49 (76) 98 11/10/18 02:00 84 4 117/42 (67) 98 11/10/18 01:23 84 20 100 11/10/18 01:00 86 13 120/77 (91) 98 11/10/18 00:00 Mechanical Ventilator 11/10/18 00:00 85 11/10/18 00:00 99.0 85 16 112/33 (59) 100 11/10/18 00:00 40 11/09/18 23:10 86 17 100 11/09/18 23:00 85 15 117/54 (75) 98 11/09/18 22:00 86 18 120/50 (73) 99 11/09/18 21:15 87 19 100 11/09/18 21:00 87 13 121/64 (83) 99 11/09/18 20:53 87 113/57 11/09/18 20:00 98.4 81 17 137/69 (91) 99 11/09/18 20:00 78 11/09/18 20:00 40 11/09/18 20:00 Mechanical Ventilator 11/09/18 19:19 86 15 100 11/09/18 19:00 78 12 100/62 (75) 98 11/09/18 18:00 87 18 130/40 (70) 98 11/09/18 17:00 88 14 144/56 (85) 99 11/09/18 16:39 87 23 100 11/09/18 16:00 88 11/09/18 16:00 40 11/09/18 16:00 98.2 87 16 134/46 (75) 98 11/09/18 16:00 Mechanical Ventilator Height (Feet): 5 Height (Inches): 10.00 Weight (Pounds): 200 General Appearance: WD/WN, no acute distress HEENT: normocephalic, atraumatic, anicteric, mucous membranes moist, PERRL, EOMI, pharynx normal, supple, no JVD Respiratory/Chest: chest wall non-tender, no respiratory distress, no accessory muscle use, decreased breath sounds, crackles/rales Cardiovascular: normal peripheral pulses, normal rate, regular rhythm, no gallop/murmur, no JVD Abdomen: normal bowel sounds, soft, non tender, no organomegaly, non distended , no mass, no scars Extremities: no cyanosis, no clubbing Skin: no rash, no lesions, no ulcers 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: alert, oriented x 3, responsive Lymphatic: no neck adenopathy, no groin adenopathy Musculoskeletal: normal muscle bulk, no effusion Laboratory Tests Test 11/10/18 05:20 White Blood Count 7.8 K/UL (4.8-10.8) Red Blood Count 5.06 M/UL (4.70-6.10) Hemoglobin 12.8 G/DL (14.2-18.0) L Hematocrit 42.1 % (42.0-52.0) Mean Corpuscular Volume 83 FL (80-99) Mean Corpuscular Hemoglobin 25.3 PG (27.0-31.0) L Mean Corpuscular Hemoglobin Concent 30.4 G/DL (32.0-36.0) L Red Cell Distribution Width 17.9 % (11.6-14.8) H Platelet Count 163 K/UL (150-450) Mean Platelet Volume 6.7 FL (6.5-10.1) Neutrophils (%) (Auto) 73.5 % (45.0-75.0) Lymphocytes (%) (Auto) 17.0 % (20.0-45.0) L Monocytes (%) (Auto) 8.7 % (1.0-10.0) Eosinophils (%) (Auto) 0.0 % (0.0-3.0) Basophils (%) (Auto) 0.6 % (0.0-2.0) Prothrombin Time 12.1 SEC (9.30-11.50) H Prothromb Time International Ratio 1.2 (0.9-1.1) H Activated Partial Thromboplast Time 34 SEC (23-33) H Sodium Level 133 MMOL/L (136-145) L Potassium Level 4.3 MMOL/L (3.5-5.1) Chloride Level 90 MMOL/L (98-107) L Carbon Dioxide Level 27 MMOL/L (21-32) Anion Gap 16 mmol/L (5-15) H Blood Urea Nitrogen 54 mg/dL (7-18) H Creatinine 8.3 MG/DL (0.55-1.30) H Estimat Glomerular Filtration Rate 6.5 mL/min (>60) Glucose Level 92 MG/DL (74-106) Calcium Level 9.2 MG/DL (8.5-10.1) Phosphorus Level 5.8 MG/DL (2.5-4.9) H Magnesium Level 1.8 MG/DL (1.8-2.4) Total Bilirubin 0.6 MG/DL (0.2-1.0) Aspartate Amino Transf (AST/SGOT) 19 U/L (15-37) Alanine Aminotransferase (ALT/SGPT) 12 U/L (12-78) Alkaline Phosphatase 84 U/L (46-116) Total Protein 6.9 G/DL (6.4-8.2) Albumin 2.8 G/DL (3.4-5.0) L Globulin 4.1 g/dL Albumin/Globulin Ratio 0.7 (1.0-2.7) L Current Medications Medications (Trade) Dose Ordered Sig/Aleks Route PRN Reason Start Time Stop Time Status Last Admin Dose Admin Acetaminophen (Tylenol) 650 mg Q4H PRN ORAL Mild Pain/Temp > 100.5 11/05/18 22:45 11/30/18 22:44 Aspirin (Ecotrin) 81 mg DAILY ORAL 11/06/18 09:00 12/03/18 08:59 11/10/18 08:29 Atorvastatin Calcium (Lipitor) 10 mg BEDTIME ORAL 11/06/18 21:00 12/02/18 20:59 11/09/18 20:54 Carvedilol (Coreg) 6.25 mg EVERY 12 HOURS ORAL 11/06/18 09:00 12/01/18 08:59 11/10/18 08:30 Chlorhexidine Gluconate (Glo-Hex 2%) 1 applic DAILY@2000 TOPIC 11/08/18 20:00 12/08/18 19:59 11/09/18 20:53 Dextrose (Dextrose 50%) 25 ml Q30M PRN IV Hypoglycemia 11/05/18 22:15 11/30/18 22:44 11/06/18 15:46 Dextrose (Dextrose 50%) 50 ml Q30M PRN IV Hypoglycemia 11/05/18 22:15 11/30/18 22:44 Hydralazine HCl (Apresoline) 10 mg Q6H PRN IV For High Blood Pressure 11/08/18 13:15 12/08/18 13:14 Insulin Aspart (NovoLOG) BEFORE MEALS AND HS SUBQ 11/06/18 06:30 12/01/18 06:29 11/10/18 11:46 Iopamidol (Isovue-370 150ml) 150 ml NOW PRN INJ Radiology Procedure 11/09/18 12:45 11/11/18 12:44 Morphine Sulfate (Morphine Sulfate) 4 mg Q4H PRN IVP for moderate pain 11/08/18 15:30 11/15/18 15:29 11/10/18 11:01 Nicotine (Nicoderm) 1 patch Q24H TDERMAL 11/05/18 22:15 12/01/18 22:14 11/09/18 22:15 Nystatin (Nystatin) 5 ml QID ORAL 11/10/18 18:00 11/17/18 17:59 Pantoprazole (Protonix) 40 mg EVERY 12 HOURS IVP 11/06/18 21:00 12/06/18 20:59 11/10/18 08:29 Tacrolimus (Prograf) 2 mg MoWeFr@0000,1200 ORAL 11/06/18 00:00 12/02/18 00:00 Tacrolimus (Prograf) 2 mg SuTuThSa@0900,2100 ORAL 11/07/18 09:00 12/01/18 20:59 11/10/18 08:32 Francois Landis M.D. Nov 10, 2018 15:23
--- NOTE | 2018-11-10 15:57 | Surgery Progress Note ---
Surgery Progress Note Subjective Procedure Performed 1. emergency tracheostomy 2. left femoral central venous catheter insertion 3. bronchoscopy Symptoms: improved, passing flatus, pain decreased Additional Comments more awake and comfortable today. Objective Last 24 Hour Vital Signs Date Time Temp Pulse Resp B/P (MAP) Pulse Ox O2 Delivery O2 Flow Rate FiO2 11/10/18 15:00 80 16 96/40 (58) 98 11/10/18 14:43 82 16 40 11/10/18 14:00 82 16 105/25 (51) 95 11/10/18 13:00 80 16 115/25 (55) 99 11/10/18 12:47 76 15 40 11/10/18 12:00 40 11/10/18 12:00 81 11/10/18 12:00 98.2 81 15 110/13 (45) 99 11/10/18 12:00 Mechanical Ventilator 11/10/18 11:00 82 12 112/61 (78) 98 11/10/18 10:39 98 11/10/18 10:00 81 14 109/13 (45) 97 11/10/18 09:00 83 17 127/37 (67) 100 11/10/18 08:54 81 16 100 11/10/18 08:30 84 122/30 11/10/18 08:00 98.5 82 18 119/19 (52) 99 11/10/18 08:00 40 11/10/18 08:00 Mechanical Ventilator 11/10/18 08:00 85 11/10/18 07:08 84 17 100 11/10/18 07:00 84 0 122/30 (60) 99 11/10/18 06:09 98.7 11/10/18 06:00 90 16 126/36 (66) 99 11/10/18 05:00 92 20 135/44 (74) 99 11/10/18 04:56 91 17 100 11/10/18 04:00 94 11/10/18 04:00 98.7 93 20 137/37 (70) 98 11/10/18 04:00 Mechanical Ventilator 11/10/18 04:00 40 11/10/18 03:10 88 16 100 11/10/18 03:00 87 18 132/49 (76) 98 11/10/18 02:00 84 4 117/42 (67) 98 11/10/18 01:23 84 20 100 11/10/18 01:00 86 13 120/77 (91) 98 11/10/18 00:00 Mechanical Ventilator 11/10/18 00:00 85 11/10/18 00:00 99.0 85 16 112/33 (59) 100 11/10/18 00:00 40 11/09/18 23:10 86 17 100 11/09/18 23:00 85 15 117/54 (75) 98 11/09/18 22:00 86 18 120/50 (73) 99 11/09/18 21:15 87 19 100 11/09/18 21:00 87 13 121/64 (83) 99 11/09/18 20:53 87 113/57 11/09/18 20:00 98.4 81 17 137/69 (91) 99 11/09/18 20:00 78 11/09/18 20:00 40 11/09/18 20:00 Mechanical Ventilator 11/09/18 19:19 86 15 100 11/09/18 19:00 78 12 100/62 (75) 98 11/09/18 18:00 87 18 130/40 (70) 98 11/09/18 17:00 88 14 144/56 (85) 99 11/09/18 16:39 87 23 100 11/09/18 16:00 88 11/09/18 16:00 40 11/09/18 16:00 98.2 87 16 134/46 (75) 98 11/09/18 16:00 Mechanical Ventilator I&O Intake and Output 11/09/18 11/10/18 19:00 07:00 Intake Total 500 ml 600 ml Output Total 3000 ml 0 ml Balance -2500 ml 600 ml IV Total 500 ml 550 ml Other 50 ml Output Urine Total 0 ml 0 ml Hemodialysis UF 3000 ml Dressing: dry Wound: clean Drains: other Cardiovascular: RSR Respiratory: decreased breath sounds Abdomen: soft, present bowel sounds, non-distended Extremities: no cyanosis, other Laboratory Tests Test 11/10/18 05:20 White Blood Count 7.8 K/UL (4.8-10.8) Red Blood Count 5.06 M/UL (4.70-6.10) Hemoglobin 12.8 G/DL (14.2-18.0) L Hematocrit 42.1 % (42.0-52.0) Mean Corpuscular Volume 83 FL (80-99) Mean Corpuscular Hemoglobin 25.3 PG (27.0-31.0) L Mean Corpuscular Hemoglobin Concent 30.4 G/DL (32.0-36.0) L Red Cell Distribution Width 17.9 % (11.6-14.8) H Platelet Count 163 K/UL (150-450) Mean Platelet Volume 6.7 FL (6.5-10.1) Neutrophils (%) (Auto) 73.5 % (45.0-75.0) Lymphocytes (%) (Auto) 17.0 % (20.0-45.0) L Monocytes (%) (Auto) 8.7 % (1.0-10.0) Eosinophils (%) (Auto) 0.0 % (0.0-3.0) Basophils (%) (Auto) 0.6 % (0.0-2.0) Prothrombin Time 12.1 SEC (9.30-11.50) H Prothromb Time International Ratio 1.2 (0.9-1.1) H Activated Partial Thromboplast Time 34 SEC (23-33) H Sodium Level 133 MMOL/L (136-145) L Potassium Level 4.3 MMOL/L (3.5-5.1) Chloride Level 90 MMOL/L (98-107) L Carbon Dioxide Level 27 MMOL/L (21-32) Anion Gap 16 mmol/L (5-15) H Blood Urea Nitrogen 54 mg/dL (7-18) H Creatinine 8.3 MG/DL (0.55-1.30) H Estimat Glomerular Filtration Rate 6.5 mL/min (>60) Glucose Level 92 MG/DL (74-106) Calcium Level 9.2 MG/DL (8.5-10.1) Phosphorus Level 5.8 MG/DL (2.5-4.9) H Magnesium Level 1.8 MG/DL (1.8-2.4) Total Bilirubin 0.6 MG/DL (0.2-1.0) Aspartate Amino Transf (AST/SGOT) 19 U/L (15-37) Alanine Aminotransferase (ALT/SGPT) 12 U/L (12-78) Alkaline Phosphatase 84 U/L (46-116) Total Protein 6.9 G/DL (6.4-8.2) Albumin 2.8 G/DL (3.4-5.0) L Globulin 4.1 g/dL Albumin/Globulin Ratio 0.7 (1.0-2.7) L Plan Problems: (1) Acute respiratory failure Assessment & Plan: Acute respiratory failure, swollen tongue, airway compromise s/p emergency bedside tracheostomy for airway protection looks more stable today and comfortable. is planned for transfer to [facility] okay for transfer from surgical standpoint. has protected airway now dressings prn vent prn (2) Ground glass opacity present on imaging of lung (3) Pleural effusion (4) Hyperkalemia (5) Renal failure (6) Altered level of consciousness (7) blood culture: gram negative rods. (8) Rash and other nonspecific skin eruption (9) NSTEMI (non-ST elevated myocardial infarction) (10) ESRD (end stage renal disease) on dialysis (11) Elevated troponin (12) Foot ulcer (13) DM (diabetes mellitus) (14) CHF (congestive heart failure) (15) Pacemaker (16) Elevated troponin and foot ulcer (17) Cellulitis, abdominal wall (18) Encephalopathy acute (19) Pericardial effusion (20) Tachycardia (21) Sepsis Assessment & Plan: Needs venous access. Patient end-stage renal disease on hemodialysis with left upper extremity AV fistula and newly created right upper extremity AV fistula. Patient furthermore patient has a pacemaker. He has not had a PICC line placed yet recommend femoral triple-lumen catheter (22) HTN (hypertension) (23) Severe tongue swelling (24) Severe tongue swelling Jerman French Nov 10, 2018 15:57
[2018-11-10] MEDS: Nystatin Susp 500,000 units/5ml ORAL SCH ×2 (17:21→20:10)
[2018-11-10] MEDS ORDERED: Tubing IV Secondary IV ONE (18:57)
--- NOTE | 2018-11-10 19:14 | Diagnostic Imaging Report ---
Indication: NG tube Comparison: None Single view of the abdomen obtained Findings: NG tube side port and tip are in the stomach. IMPRESSION: Satisfactory position nasogastric
--- NOTE | 2018-11-10 19:16 | Diagnostic Imaging Report ---
APPROVED REPORT CPT Code: 20405 Symptoms Non-healing Ulcer : Right Comments: RIGHT LEG: Common femoral artery waveform analysis is within normal limits at rest. Color flow duplex sonography reveals calcification throughout the superficial femoral artery. A moderate (50-75%) stenosis is seen in the mid superficial femoral artery. There is no evidence of occlusion within this segment. The tibioperoneal trunk was not well visualized. The distal posterior tibial artery was occluded. The dorsalis pedis and anterior tibial arteries are not imaged due to patient was not compliant.
--- NOTE | 2018-11-10 19:16 | Diagnostic Imaging Report ---
Indication: Tongue swelling. Status post tracheostomy. Neck pain Technique: Continuous helical transaxial imaging of the neck was obtained from the aortic arch to the skull base during rapid intravenous contrast administration. Arterial phase of enhancement obtained. Coronal 2-D reformats were also obtained and maximum intensity projection images in multiple planes. Study obtained in a Siemens sensation [address] Automatic Exposure Control was utilized. Total Dose length Product (DLP): [address] Dose Index Volume (CTDIvol): 0.17, 0.17, 16.5, 181.54, 60.21 mGy Comparison: None Findings: There is mild plaque at the origin of the left internal carotid artery with stenosis estimated at 30%. The remainder of the left ICA is widely patent. Both CCAs are widely patent. There is minimal plaque at the origin of the right ICA. This does not significantly narrow the lumen. Minimal calcific plaques also demonstrated within the aortic arch. Both vertebral arteries are demonstrated and show no significant stenosis. The right vertebral artery is dominant. There is narrowing of intervertebral discs and accompanying endplate osteophyte formation. Hypertrophied facet joints also demonstrated. Tracheostomy is noted. The tip of the tracheostomy appears to be in good position. There is a moderate to large right pleural effusion within the visualized part of the right lung apex. Associated compressive atelectasis of part of the right upper lobe noted. There is mild posterior atelectasis within the visualized left lung. There is mucosal thickening within the visualized paranasal sinuses. There is a nasogastric tube present. IMPRESSION: No high-grade stenosis or occlusion of the extracranial carotid arteries or vertebral arteries demonstrated. Mild atherosclerotic vascular disease at the origins of both ICAs not significant hemodynamically. Status post tracheostomy. NG tube noted. Cervical spondylosis. Sinusitis. The CT scanner at [facility] is accredited by the [employer] and the scans are performed using dose optimization techniques as appropriate to a performed exam including Automatic Exposure control.
[2018-11-10] MEDS: Dyna-Hex 2% Top Sol 2oz TOPIC SCH (20:09)
--- NOTE | 2018-11-10 23:00 | Progress Note ---
DATE: 11/10/2018 SUBJECTIVE: This is a elderly male, currently on ventilator in intensive care unit, nonverbal, looks otherwise comfortable. PHYSICAL EXAMINATION: VITAL SIGNS: Blood pressure 122/59, pulse 74, respirations 21, and temperature 98. HEENT: NAD. CHEST: Bilaterally few crackles. CARDIOVASCULAR: Regular rhythm. ABDOMEN: Soft. EXTREMITIES: CCE. LABORATORY AND DIAGNOSTIC DATA: White count 7.8, hemoglobin 13, hematocrit 43, platelets are 163. Chemistry panel, sodium 133 potassium 4.3, BUN 54, creatinine 8.3. ASSESSMENT: 1. Angioedema. 2. Fluid overload. 3. Hypertension. 4. Diabetes. PLAN: 1. We will currently continue current treatment. 2. Continue Imodium. 3. Continue morphine. 4. Continue Lipitor, PPIs, Carvedilol, insulin, tacrolimus. 5. Discussed with [facility] hospitalist to transfer to [facility]. Jamari Carter M.D. DR: Veronica JOB#: [id number] CC:
[2018-11-11] VITALS (15 sets, daily range): BP systolic 93–153; BP diastolic 21–97
[2018-11-11] MEDS: Morphine Sulfate 4mg/ml Inj (IV USE ONLY) IVP PRN ×4 (01:21→23:33)
[2018-11-11 05:16] LABS: BASOPHILS % (AUTO) 0.7 % (0.0-2.0); HEMATOCRIT 42.6 % (42.0-52.0); HEMOGLOBIN 13.1 G/DL (14.2-18.0); LYMPHOCYTES % (AUTO) 15.4 % (20.0-45.0); MEAN CORPUSCULAR VOLUME 83 FL (80-99); MONOCYTES % (AUTO) 8.2 % (1.0-10.0); NEUTROPHILS % (AUTO) 75.6 % (45.0-75.0); PLATELET COUNT 166 K/UL (150-450); RED BLOOD COUNT 5.15 M/UL (4.70-6.10); RED CELL DISTRIBUTION WIDTH 17.5 % (11.6-14.8); WHITE BLOOD COUNT 8.3 K/UL (4.8-10.8)
[2018-11-11] MEDS: NovoLOG Insulin Flexpen SUBQ SCH ×4 (05:31→21:07)
[2018-11-11 05:41] LABS: ALANINE AMINOTRANSFERASE 13 U/L (12-78); ALBUMIN 2.7 G/DL (3.4-5.0); ALBUMIN/GLOBULIN RATIO 0.7 (1.0-2.7); ALKALINE PHOSPHATASE 84 U/L (46-116); ANION GAP 12 mmol/L (5-15); ASPARTATE AMINO TRANSFERASE 15 U/L (15-37); BILIRUBIN,TOTAL 0.5 MG/DL (0.2-1.0); BLOOD UREA NITROGEN 59 mg/dL (7-18); CARBON DIOXIDE 29 MMOL/L (21-32); CHLORIDE 90 MMOL/L (98-107); CREATININE 9.3 MG/DL (0.55-1.30); POTASSIUM 4.5 MMOL/L (3.5-5.1); SODIUM 131 MMOL/L (136-145)
[2018-11-11 06:05] LABS: PHOSPHORUS 7.4 MG/DL (2.5-4.9)
[2018-11-11] MEDS: Carvedilol 6.25mg Tab ORAL SCH ×2 (09:00→21:05)
[2018-11-11] MEDS: Renvela 800mg Pkt NG SCH ×3 (09:14→17:54)
[2018-11-11] MEDS: Pantoprazole Inj IVP SCH (09:14)
[2018-11-11] MEDS: Aspirin EC 81mg tab ORAL SCH (09:14)
[2018-11-11] MEDS: Nystatin Susp 500,000 units/5ml ORAL SCH ×4 (09:14→21:06)
--- NOTE | 2018-11-11 10:06 | Cardiac Electrophysiology PN ---
Assessment/Plan Assessment/Plan 1. Troponin elevation. No chest pain. Already revascularized by CABG. Likely due to renal failure. On Coreg 6.25 mg bid, aspirin and Lipitor 2. Status post coronary bypass graft 3. Nonsustained ventricular tachycardia. The patient has history of prior myocardial infarction and bypass. EF 55%. No Syncope 4. Congestive heart failure. On hemodialysis, per Dr. Stevens. 5. End-stage renal disease, on hemodialysis. 6. Status post right sided [employer]onic dual chamber pacemaker with Nl Fx. 7. Right foot ulcer. Antibiotic per Dr. Landis. FU by Dr. Huizar 8. History of liver transplant on Prograf 9. Anaphylaxis? causing facial edema and Respiratory failure, ? etiology S/P Emergency tracheostomy. XIOMARA RN Subjective Subjective In ICU off pressors on the vent in SIMV mode.Alert. Feeding via NG . Objective Last 24 Hour Vital Signs Date Time Temp Pulse Resp B/P (MAP) Pulse Ox O2 Delivery O2 Flow Rate FiO2 11/11/18 09:45 87 21 40 40 11/11/18 09:45 100 11/11/18 09:00 82 98/40 11/11/18 06:34 89 21 40 11/11/18 06:00 98.0 11/11/18 06:00 98.0 86 16 129/74 (92) 99 11/11/18 05:04 90 19 40 11/11/18 05:00 90 19 130/27 (61) 99 11/11/18 04:00 87 11/11/18 04:00 40 11/11/18 04:00 88 20 116/48 (70) 98 11/11/18 04:00 Mechanical Ventilator 11/11/18 03:35 87 16 40 11/11/18 03:00 88 17 128/39 (68) 99 11/11/18 02:00 86 14 127/26 (59) 98 11/11/18 01:15 86 16 40 11/11/18 01:00 98.7 86 17 111/65 (80) 98 11/11/18 00:00 40 11/11/18 00:00 87 11/11/18 00:00 80 18 93/42 (59) 98 11/11/18 00:00 Mechanical Ventilator 11/10/18 23:09 80 20 40 11/10/18 23:00 80 10 120/53 (75) 99 11/10/18 22:00 79 16 103/58 (73) 98 11/10/18 21:42 71 100/51 11/10/18 21:23 79 21 40 11/10/18 21:00 98.4 78 11 126/39 (68) 99 11/10/18 20:00 81 17 133/52 (79) 99 11/10/18 20:00 40 11/10/18 20:00 Mechanical Ventilator 11/10/18 19:23 79 19 40 11/10/18 19:00 80 19 131/50 (77) 99 11/10/18 18:00 78 15 126/44 (71) 100 11/10/18 17:04 74 23 40 11/10/18 17:00 74 21 122/59 (80) 100 11/10/18 16:00 Mechanical Ventilator 11/10/18 16:00 40 11/10/18 16:00 98.0 75 19 109/25 (53) 100 11/10/18 16:00 74 11/10/18 15:00 80 16 96/40 (58) 98 11/10/18 14:43 82 16 40 11/10/18 14:00 82 16 105/25 (51) 95 11/10/18 13:00 80 16 115/25 (55) 99 11/10/18 12:47 76 15 40 11/10/18 12:00 40 11/10/18 12:00 81 11/10/18 12:00 98.2 81 15 110/13 (45) 99 11/10/18 12:00 Mechanical Ventilator 11/10/18 11:00 82 12 112/61 (78) 98 11/10/18 10:39 98 Intake and Output 11/10/18 11/11/18 18:59 06:59 Intake Total 186 ml 458 ml Output Total 0 ml 0 ml Balance 186 ml 458 ml Tube Feeding 186 ml 408 ml Other 50 ml Output Urine Total 0 ml 0 ml Laboratory Tests Test 11/10/18 16:20 11/11/18 03:30 Hepatitis A IgM Antibody Negative (Negative) Hepatitis B Surface Antigen Negative (Negative) Hepatitis B Core IgM Antibody Negative (Negative) Hepatitis C Antibody 10.3 s/co ratio White Blood Count 8.3 K/UL (4.8-10.8) Red Blood Count 5.15 M/UL (4.70-6.10) Hemoglobin 13.1 G/DL (14.2-18.0) L Hematocrit 42.6 % (42.0-52.0) Mean Corpuscular Volume 83 FL (80-99) Mean Corpuscular Hemoglobin 25.5 PG (27.0-31.0) L Mean Corpuscular Hemoglobin Concent 30.8 G/DL (32.0-36.0) L Red Cell Distribution Width 17.5 % (11.6-14.8) H Platelet Count 166 K/UL (150-450) Mean Platelet Volume 7.4 FL (6.5-10.1) Neutrophils (%) (Auto) 75.6 % (45.0-75.0) H Lymphocytes (%) (Auto) 15.4 % (20.0-45.0) L Monocytes (%) (Auto) 8.2 % (1.0-10.0) Eosinophils (%) (Auto) 0.0 % (0.0-3.0) Basophils (%) (Auto) 0.7 % (0.0-2.0) Sodium Level 131 MMOL/L (136-145) L Potassium Level 4.5 MMOL/L (3.5-5.1) Chloride Level 90 MMOL/L (98-107) L Carbon Dioxide Level 29 MMOL/L (21-32) Anion Gap 12 mmol/L (5-15) Blood Urea Nitrogen 59 mg/dL (7-18) H Creatinine 9.3 MG/DL (0.55-1.30) H Estimat Glomerular Filtration Rate 5.7 mL/min (>60) Glucose Level 141 MG/DL (74-106) H Calcium Level 9.0 MG/DL (8.5-10.1) Phosphorus Level 7.4 MG/DL (2.5-4.9) H Magnesium Level 2.0 MG/DL (1.8-2.4) Total Bilirubin 0.5 MG/DL (0.2-1.0) Aspartate Amino Transf (AST/SGOT) 15 U/L (15-37) Alanine Aminotransferase (ALT/SGPT) 13 U/L (12-78) Alkaline Phosphatase 84 U/L (46-116) C-Reactive Protein, Quantitative 13.7 mg/dL (0.00-0.90) H Pro-B-Type Natriuretic Peptide > 49957 pg/mL (0-125) H Total Protein 6.8 G/DL (6.4-8.2) Albumin 2.7 G/DL (3.4-5.0) L Globulin 4.1 g/dL Albumin/Globulin Ratio 0.7 (1.0-2.7) L Random Vancomycin Level 17.2 ug/mL Objective HEAD AND NECK: No JVD.Tracheostomy intact .NG is in LUNGS: Coarse rhonchi. CARDIOVASCULAR: Regular S1 and S2 with no gallop. Sternotomy is intact Pacemaker in the right subclavian ABDOMEN: Soft. EXTREMITIES: 1+ pitting edema Shivam Sharpe MD Nov 11, 2018 10:06
--- NOTE | 2018-11-11 12:20 | GI Progress Note ---
Assessment/Plan Problems: (1) Foot ulcer ICD Codes: L97.509 - Non-pressure chronic ulcer of other part of unspecified foot with unspecified severity SNOMED: 59210223 Qualifiers: Qualified Codes: L97.511 - Non-pressure chronic ulcer of other part of right foot limited to breakdown of skin (2) DM (diabetes mellitus) ICD Codes: E11.9 - Type 2 diabetes mellitus without complications SNOMED: 13459708 (3) Transplant ICD Codes: Z94.9 - Transplanted organ and tissue status, unspecified SNOMED: 543800133 Status: unchanged Status Narrative Discussed with Dr. Escalera. Assessment/Plan History of liver transplant, currently on Prograf constipation Patient now in ICU, status post emergency tracheostomy cont tacrolimus NGT placement, may need PEG if respiratory status does not improve NGTFs prn transfusions ppi zofran prn Bowel regimen Trend LFTs follow labs The patient was seen and examined at bedside and all new and available data was reviewed in the patients chart. I agree with the above findings, impression and plan. (Patient seen earlier today. Signature stamp does not reflect patient encounter time.). - Jorge Escalera MD Subjective Subjective Limited Objective Last 24 Hour Vital Signs Date Time Temp Pulse Resp B/P (MAP) Pulse Ox O2 Delivery O2 Flow Rate FiO2 11/11/18 10:54 92 21 40 40 11/11/18 10:40 87 15 40 40 11/11/18 10:36 40 11/11/18 09:45 87 21 40 40 11/11/18 09:45 100 11/11/18 09:00 82 98/40 11/11/18 08:00 Mechanical Ventilator 11/11/18 08:00 40 11/11/18 06:34 89 21 40 11/11/18 06:00 98.0 11/11/18 06:00 98.0 86 16 129/74 (92) 99 11/11/18 05:04 90 19 40 11/11/18 05:00 90 19 130/27 (61) 99 11/11/18 04:00 87 11/11/18 04:00 40 11/11/18 04:00 88 20 116/48 (70) 98 11/11/18 04:00 Mechanical Ventilator 11/11/18 03:35 87 16 40 11/11/18 03:00 88 17 128/39 (68) 99 11/11/18 02:00 86 14 127/26 (59) 98 11/11/18 01:15 86 16 40 11/11/18 01:00 98.7 86 17 111/65 (80) 98 11/11/18 00:00 40 11/11/18 00:00 87 11/11/18 00:00 80 18 93/42 (59) 98 11/11/18 00:00 Mechanical Ventilator 11/10/18 23:09 80 20 40 11/10/18 23:00 80 10 120/53 (75) 99 11/10/18 22:00 79 16 103/58 (73) 98 11/10/18 21:42 71 100/51 11/10/18 21:23 79 21 40 11/10/18 21:00 98.4 78 11 126/39 (68) 99 11/10/18 20:00 81 17 133/52 (79) 99 11/10/18 20:00 40 11/10/18 20:00 Mechanical Ventilator 11/10/18 19:23 79 19 40 11/10/18 19:00 80 19 131/50 (77) 99 11/10/18 18:00 78 15 126/44 (71) 100 11/10/18 17:04 74 23 40 11/10/18 17:00 74 21 122/59 (80) 100 11/10/18 16:00 Mechanical Ventilator 11/10/18 16:00 40 11/10/18 16:00 98.0 75 19 109/25 (53) 100 11/10/18 16:00 74 11/10/18 15:00 80 16 96/40 (58) 98 11/10/18 14:43 82 16 40 11/10/18 14:00 82 16 105/25 (51) 95 11/10/18 13:00 80 16 115/25 (55) 99 11/10/18 12:47 76 15 40 Intake and Output 11/10/18 11/11/18 19:00 07:00 Intake Total 216 ml 470 ml Output Total 0 ml 0 ml Balance 216 ml 470 ml Tube Feeding 216 ml 420 ml Other 50 ml Output Urine Total 0 ml 0 ml Laboratory Tests Test 11/10/18 16:20 11/11/18 03:30 Hepatitis A IgM Antibody Negative (Negative) Hepatitis B Surface Antigen Negative (Negative) Hepatitis B Core IgM Antibody Negative (Negative) Hepatitis C Antibody 10.3 s/co ratio White Blood Count 8.3 K/UL (4.8-10.8) Red Blood Count 5.15 M/UL (4.70-6.10) Hemoglobin 13.1 G/DL (14.2-18.0) L Hematocrit 42.6 % (42.0-52.0) Mean Corpuscular Volume 83 FL (80-99) Mean Corpuscular Hemoglobin 25.5 PG (27.0-31.0) L Mean Corpuscular Hemoglobin Concent 30.8 G/DL (32.0-36.0) L Red Cell Distribution Width 17.5 % (11.6-14.8) H Platelet Count 166 K/UL (150-450) Mean Platelet Volume 7.4 FL (6.5-10.1) Neutrophils (%) (Auto) 75.6 % (45.0-75.0) H Lymphocytes (%) (Auto) 15.4 % (20.0-45.0) L Monocytes (%) (Auto) 8.2 % (1.0-10.0) Eosinophils (%) (Auto) 0.0 % (0.0-3.0) Basophils (%) (Auto) 0.7 % (0.0-2.0) Sodium Level 131 MMOL/L (136-145) L Potassium Level 4.5 MMOL/L (3.5-5.1) Chloride Level 90 MMOL/L (98-107) L Carbon Dioxide Level 29 MMOL/L (21-32) Anion Gap 12 mmol/L (5-15) Blood Urea Nitrogen 59 mg/dL (7-18) H Creatinine 9.3 MG/DL (0.55-1.30) H Estimat Glomerular Filtration Rate 5.7 mL/min (>60) Glucose Level 141 MG/DL (74-106) H Calcium Level 9.0 MG/DL (8.5-10.1) Phosphorus Level 7.4 MG/DL (2.5-4.9) H Magnesium Level 2.0 MG/DL (1.8-2.4) Total Bilirubin 0.5 MG/DL (0.2-1.0) Aspartate Amino Transf (AST/SGOT) 15 U/L (15-37) Alanine Aminotransferase (ALT/SGPT) 13 U/L (12-78) Alkaline Phosphatase 84 U/L (46-116) C-Reactive Protein, Quantitative 13.7 mg/dL (0.00-0.90) H Pro-B-Type Natriuretic Peptide > 39841 pg/mL (0-125) H Total Protein 6.8 G/DL (6.4-8.2) Albumin 2.7 G/DL (3.4-5.0) L Globulin 4.1 g/dL Albumin/Globulin Ratio 0.7 (1.0-2.7) L Random Vancomycin Level 17.2 ug/mL Height (Feet): 5 Height (Inches): 10.00 Weight (Pounds): 200 General Appearance: WD/WN, no apparent distress, alert Cardiovascular: normal rate Respiratory/Chest: normal breath sounds, no respiratory distress, other - mech vent Abdominal Exam: normal bowel sounds, non tender, soft, other - NGT Extremities: non-tender Kelvin Briggs NP Nov 11, 2018 12:19
--- NOTE | 2018-11-11 12:24 | General Progress Note ---
Progress Note Progress Note ENT Note Event s of Friday discussed with Dr. CRUZ I have seen pt today, will let swelling from Sundays trach decrease 1 more day and then tomorrow will scope at bedside. Alex Man MD Nov 11, 2018 12:24
--- NOTE | 2018-11-11 12:26 | Nephrology Progress Note ---
Assessment/Plan Problem List: (1) ESRD (end stage renal disease) on dialysis (2) Foot ulcer (3) CHF (congestive heart failure) (4) Pacemaker (5) Acute respiratory failure Assessment: with Co2 retention Assessment ESRD with high K and SOB on admit Foot ulcer, likely infected High Troponin likely NSTMI Pacer , Pleural effusion s/p CABGS s/p Liver transplant Plan Now has tracheostomy DC IV fluid discussed with Dr Mendoza 11/06 DC unnecessary pills as patient NPO One dose of solumedrol 11/06 and again 11/08 HD 11/11 I adjust Vanco dosages- redose 11/12 monitor Vanco level start tube feeding per cardio and ID Poor Prognosis Podiatry and Vascular surgical eval Subjective ROS Limited/Unobtainable: No Objective Objective Last 24 Hour Vital Signs Date Time Temp Pulse Resp B/P (MAP) Pulse Ox O2 Delivery O2 Flow Rate FiO2 11/11/18 10:54 92 21 40 40 11/11/18 10:40 87 15 40 40 11/11/18 10:36 40 11/11/18 09:45 87 21 40 40 11/11/18 09:45 100 11/11/18 09:00 82 98/40 11/11/18 08:00 Mechanical Ventilator 11/11/18 08:00 40 11/11/18 06:34 89 21 40 11/11/18 06:00 98.0 11/11/18 06:00 98.0 86 16 129/74 (92) 99 11/11/18 05:04 90 19 40 11/11/18 05:00 90 19 130/27 (61) 99 11/11/18 04:00 87 11/11/18 04:00 40 11/11/18 04:00 88 20 116/48 (70) 98 11/11/18 04:00 Mechanical Ventilator 11/11/18 03:35 87 16 40 11/11/18 03:00 88 17 128/39 (68) 99 11/11/18 02:00 86 14 127/26 (59) 98 11/11/18 01:15 86 16 40 11/11/18 01:00 98.7 86 17 111/65 (80) 98 11/11/18 00:00 40 11/11/18 00:00 87 11/11/18 00:00 80 18 93/42 (59) 98 11/11/18 00:00 Mechanical Ventilator 11/10/18 23:09 80 20 40 11/10/18 23:00 80 10 120/53 (75) 99 11/10/18 22:00 79 16 103/58 (73) 98 11/10/18 21:42 71 100/51 11/10/18 21:23 79 21 40 11/10/18 21:00 98.4 78 11 126/39 (68) 99 11/10/18 20:00 81 17 133/52 (79) 99 11/10/18 20:00 40 11/10/18 20:00 Mechanical Ventilator 11/10/18 19:23 79 19 40 11/10/18 19:00 80 19 131/50 (77) 99 11/10/18 18:00 78 15 126/44 (71) 100 11/10/18 17:04 74 23 40 11/10/18 17:00 74 21 122/59 (80) 100 11/10/18 16:00 Mechanical Ventilator 11/10/18 16:00 40 11/10/18 16:00 98.0 75 19 109/25 (53) 100 11/10/18 16:00 74 11/10/18 15:00 80 16 96/40 (58) 98 11/10/18 14:43 82 16 40 11/10/18 14:00 82 16 105/25 (51) 95 11/10/18 13:00 80 16 115/25 (55) 99 11/10/18 12:47 76 15 40 Intake and Output 11/10/18 11/11/18 19:00 07:00 Intake Total 216 ml 470 ml Output Total 0 ml 0 ml Balance 216 ml 470 ml Tube Feeding 216 ml 420 ml Other 50 ml Output Urine Total 0 ml 0 ml Laboratory Tests 11/10/18 16:20: Hepatitis A IgM Antibody Negative, Hepatitis B Surface Antigen Negative, Hepatitis B Core IgM Antibody Negative, Hepatitis C Antibody 10.3H 11/11/18 03:30: White Blood Count 8.3, Red Blood Count 5.15, Hemoglobin 13.1L, Hematocrit 42.6, Mean Corpuscular Volume 83, Mean Corpuscular Hemoglobin 25.5L, Mean Corpuscular Hemoglobin Concent 30.8L, Red Cell Distribution Width 17.5H, Platelet Count 166 , Mean Platelet Volume 7.4, Neutrophils (%) (Auto) 75.6H, Lymphocytes (%) (Auto ) 15.4L, Monocytes (%) (Auto) 8.2, Eosinophils (%) (Auto) 0.0, Basophils (%) ( Auto) 0.7, Sodium Level 131L, Potassium Level 4.5, Chloride Level 90L, Carbon Dioxide Level 29, Anion Gap 12, Blood Urea Nitrogen 59H, Creatinine 9.3H, Estimat Glomerular Filtration Rate 5.7, Glucose Level 141H, Calcium Level 9.0, Phosphorus Level 7.4H, Magnesium Level 2.0, Total Bilirubin 0.5, Aspartate Amino Transf (AST/SGOT) 15, Alanine Aminotransferase (ALT/SGPT) 13, Alkaline Phosphatase 84, C-Reactive Protein, Quantitative 13.7H, Pro-B-Type Natriuretic Peptide > 97890E, Total Protein 6.8, Albumin 2.7L, Globulin 4.1, Albumin/ Globulin Ratio 0.7L, Random Vancomycin Level 17.2 Height (Feet): 5 Height (Inches): 10.00 Weight (Pounds): 200 General Appearance: no apparent distress EENT: other - trach Respiratory/Chest: decreased breath sounds Abdomen: distended Objective no other change Nakul Stevens MD Nov 11, 2018 12:26
--- NOTE | 2018-11-11 13:42 | Infectious Diseases Prog Note ---
Assessment/Plan Problems: (1) Ground glass opacity present on imaging of lung Assessment & Plan: with no evedence of atypical organisms and negative fungal serology( crypt, cocci, histo, and aspergillosis ) and viral PCR for CMV and herpes . 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 bone scan ruled out osteomyelitis of the heel . will treat with vancomycin with HD for two weeks total . follow up with touch up carver (3) DM (diabetes mellitus) Assessment & Plan: recommend tight glycemic control to keep blood glucose between 100-140 (4) CHF (congestive heart failure) Assessment & Plan: on HD , renal is following, monitor daily weight (5) Encephalopathy acute Assessment & Plan: suspect metabolic, with high urea level, improving. (6) Severe tongue swelling Assessment & Plan: improving initially after steroids , but got worse today with respiratory compromise , had tracheostomy to protect his airway since respiratory status worsened . pulmonary is following (7) Pleural effusion Assessment & Plan: massive on the right, rule out infectious etiology, recommend thoracentesis and fluids to be sent for gram stain, culture, fungal and AFB, cytology and pathology Subjective Constitutional: Reports: fatigue HEENT: Reports: other - tongue swelling with thrush Respiratory: Reports: no symptoms Breasts: Reports: no symptoms Cardiovascular: Reports: no symptoms Gastrointestinal/Abdominal: Reports: no symptoms Genitourinary: Reports: no symptoms Neurologic: Reports: weakness, confusion Psychiatric: Reports: no symptoms Skin: Reports: ulcer Endocrine: Reports: no symptoms Hematologic: Reports: no symptoms Musculoskeletal: Reports: no symptoms Allergies: Coded Allergies: CEPHALEXIN (Unverified Allergy, Unknown, 02/24/14) SULFAMETHOXAZOLE (Unverified Allergy, Unknown, 02/24/14) TRIMETHOPRIM (Unverified Allergy, Unknown, 02/24/14) Subjective he was feeling ok after he was trached emergently due to worsening respiratory failure, feels better , repeated CXR no significant changes , awake and responsive, no fever or chills, no cough or phlegm , no SOB . Objective Vital Signs Last 24 Hour Vital Signs Date Time Temp Pulse Resp B/P (MAP) Pulse Ox O2 Delivery O2 Flow Rate FiO2 11/11/18 13:18 81 26 40 11/11/18 12:00 84 19 105/41 (62) 99 11/11/18 12:00 40 11/11/18 12:00 Mechanical Ventilator 11/11/18 11:00 90 16 108/21 (50) 99 11/11/18 10:54 92 21 40 40 11/11/18 10:40 87 15 40 40 11/11/18 10:36 40 11/11/18 10:00 87 19 113/27 (55) 99 11/11/18 09:45 87 21 40 40 11/11/18 09:45 100 11/11/18 09:00 82 98/40 11/11/18 09:00 81 19 98/31 (53) 99 11/11/18 08:00 84 19 97/74 (82) 100 11/11/18 08:00 Mechanical Ventilator 11/11/18 08:00 40 11/11/18 07:00 98.2 84 19 103/42 (62) 99 11/11/18 06:34 89 21 40 11/11/18 06:00 98.0 11/11/18 06:00 98.0 86 16 129/74 (92) 99 11/11/18 05:04 90 19 40 11/11/18 05:00 90 19 130/27 (61) 99 11/11/18 04:00 87 11/11/18 04:00 40 11/11/18 04:00 88 20 116/48 (70) 98 11/11/18 04:00 Mechanical Ventilator 11/11/18 03:35 87 16 40 11/11/18 03:00 88 17 128/39 (68) 99 11/11/18 02:00 86 14 127/26 (59) 98 11/11/18 01:15 86 16 40 11/11/18 01:00 98.7 86 17 111/65 (80) 98 11/11/18 00:00 40 11/11/18 00:00 87 11/11/18 00:00 80 18 93/42 (59) 98 11/11/18 00:00 Mechanical Ventilator 11/10/18 23:09 80 20 40 11/10/18 23:00 80 10 120/53 (75) 99 11/10/18 22:00 79 16 103/58 (73) 98 11/10/18 21:42 71 100/51 11/10/18 21:23 79 21 40 11/10/18 21:00 98.4 78 11 126/39 (68) 99 11/10/18 20:00 81 17 133/52 (79) 99 11/10/18 20:00 40 11/10/18 20:00 Mechanical Ventilator 11/10/18 19:23 79 19 40 11/10/18 19:00 80 19 131/50 (77) 99 11/10/18 18:00 78 15 126/44 (71) 100 11/10/18 17:04 74 23 40 11/10/18 17:00 74 21 122/59 (80) 100 11/10/18 16:00 Mechanical Ventilator 11/10/18 16:00 40 11/10/18 16:00 98.0 75 19 109/25 (53) 100 11/10/18 16:00 74 11/10/18 15:00 80 16 96/40 (58) 98 11/10/18 14:43 82 16 40 11/10/18 14:00 82 16 105/25 (51) 95 Height (Feet): 5 Height (Inches): 10.00 Weight (Pounds): 200 General Appearance: WD/WN, no acute distress HEENT: normocephalic, atraumatic, anicteric, PERRL, EOMI, supple, no JVD, status post trach, thrush, other - tongue swelling Respiratory/Chest: chest wall non-tender, no respiratory distress, no accessory muscle use, decreased breath sounds, crackles/rales Cardiovascular: normal peripheral pulses, normal rate, regular rhythm, no gallop/murmur, no JVD Abdomen: normal bowel sounds, soft, non tender, no organomegaly, non distended , no mass, no scars Genitourinary: normal external genitalia Extremities: no cyanosis, no clubbing, other - right heel wound dry Skin: no rash, no lesions, ulcers 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: scrap sawyer 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 normal, alert, responsive Lymphatic: no neck adenopathy, no groin adenopathy Musculoskeletal: normal muscle bulk Laboratory Tests Test 11/10/18 16:20 11/11/18 03:30 Hepatitis A IgM Antibody Negative (Negative) Hepatitis B Surface Antigen Negative (Negative) Hepatitis B Core IgM Antibody Negative (Negative) Hepatitis C Antibody 10.3 s/co ratio White Blood Count 8.3 K/UL (4.8-10.8) Red Blood Count 5.15 M/UL (4.70-6.10) Hemoglobin 13.1 G/DL (14.2-18.0) L Hematocrit 42.6 % (42.0-52.0) Mean Corpuscular Volume 83 FL (80-99) Mean Corpuscular Hemoglobin 25.5 PG (27.0-31.0) L Mean Corpuscular Hemoglobin Concent 30.8 G/DL (32.0-36.0) L Red Cell Distribution Width 17.5 % (11.6-14.8) H Platelet Count 166 K/UL (150-450) Mean Platelet Volume 7.4 FL (6.5-10.1) Neutrophils (%) (Auto) 75.6 % (45.0-75.0) H Lymphocytes (%) (Auto) 15.4 % (20.0-45.0) L Monocytes (%) (Auto) 8.2 % (1.0-10.0) Eosinophils (%) (Auto) 0.0 % (0.0-3.0) Basophils (%) (Auto) 0.7 % (0.0-2.0) Sodium Level 131 MMOL/L (136-145) L Potassium Level 4.5 MMOL/L (3.5-5.1) Chloride Level 90 MMOL/L (98-107) L Carbon Dioxide Level 29 MMOL/L (21-32) Anion Gap 12 mmol/L (5-15) Blood Urea Nitrogen 59 mg/dL (7-18) H Creatinine 9.3 MG/DL (0.55-1.30) H Estimat Glomerular Filtration Rate 5.7 mL/min (>60) Glucose Level 141 MG/DL (74-106) H Calcium Level 9.0 MG/DL (8.5-10.1) Phosphorus Level 7.4 MG/DL (2.5-4.9) H Magnesium Level 2.0 MG/DL (1.8-2.4) Total Bilirubin 0.5 MG/DL (0.2-1.0) Aspartate Amino Transf (AST/SGOT) 15 U/L (15-37) Alanine Aminotransferase (ALT/SGPT) 13 U/L (12-78) Alkaline Phosphatase 84 U/L (46-116) C-Reactive Protein, Quantitative 13.7 mg/dL (0.00-0.90) H Pro-B-Type Natriuretic Peptide > 12364 pg/mL (0-125) H Total Protein 6.8 G/DL (6.4-8.2) Albumin 2.7 G/DL (3.4-5.0) L Globulin 4.1 g/dL Albumin/Globulin Ratio 0.7 (1.0-2.7) L Random Vancomycin Level 17.2 ug/mL Current Medications Medications (Trade) Dose Ordered Sig/Aleks Route PRN Reason Start Time Stop Time Status Last Admin Dose Admin Acetaminophen (Tylenol) 650 mg Q4H PRN ORAL Mild Pain/Temp > 100.5 11/05/18 22:45 11/30/18 22:44 Aspirin (Ecotrin) 81 mg DAILY ORAL 11/06/18 09:00 12/03/18 08:59 11/11/18 09:14 Atorvastatin Calcium (Lipitor) 10 mg BEDTIME ORAL 11/06/18 21:00 12/02/18 20:59 11/10/18 20:10 Carvedilol (Coreg) 6.25 mg EVERY 12 HOURS ORAL 11/06/18 09:00 12/01/18 08:59 11/10/18 08:30 Chlorhexidine Gluconate (Glo-Hex 2%) 1 applic DAILY@2000 TOPIC 11/08/18 20:00 12/08/18 19:59 11/10/18 20:09 Dextrose (Dextrose 50%) 25 ml Q30M PRN IV Hypoglycemia 11/05/18 22:15 11/30/18 22:44 11/06/18 15:46 Dextrose (Dextrose 50%) 50 ml Q30M PRN IV Hypoglycemia 11/05/18 22:15 11/30/18 22:44 Hydralazine HCl (Apresoline) 10 mg Q6H PRN IV For High Blood Pressure 11/08/18 13:15 12/08/18 13:14 Insulin Aspart (NovoLOG) BEFORE MEALS AND HS SUBQ 11/06/18 06:30 12/01/18 06:29 11/11/18 12:29 Lansoprazole (Prevacid) 30 mg BID NG 11/11/18 18:00 12/11/18 17:59 Morphine Sulfate (Morphine Sulfate) 4 mg Q4H PRN IVP for moderate pain 11/08/18 15:30 11/15/18 15:29 11/11/18 05:30 Nicotine (Nicoderm) 1 patch Q24H TDERMAL 11/05/18 22:15 12/01/18 22:14 11/10/18 21:49 Nystatin (Nystatin) 5 ml QID ORAL 11/10/18 18:00 11/17/18 17:59 11/11/18 12:32 Sevelamer Carbonate (Renvela) 1,600 mg THREE TIMES A DAY NG 11/11/18 09:00 12/11/18 08:59 11/11/18 12:32 Tacrolimus (Prograf) 2 mg MoWeFr@0000,1200 ORAL 11/06/18 00:00 12/02/18 00:00 11/11/18 12:32 Tacrolimus (Prograf) 2 mg SuTuThSa@0900,2100 ORAL 11/07/18 09:00 12/01/18 20:59 11/10/18 20:16 Vancomycin HCl 1 gm/Dextrose 275 ml @ 183.708 mls/hr ONCE ONCE IVPB 11/12/18 09:00 11/12/18 10:29 Francois Landis M.D. Nov 11, 2018 13:42
[2018-11-11] MEDS ORDERED: Docusate 100mg cap ORAL PRN (15:30)
--- NOTE | 2018-11-11 16:30 | Progress Note ---
HOSPITAL COURSE: The patient came with fluid overload and had angioedema, had trach a day before yesterday and placed on the ventilator, now he is tolerating weaning, is on SIMV program. The patient also was hemodialyzed, also has Cardiology consult, Pulmonary consult, and Nephrology consult. Jamari Carter M.D. DR: Veronica JOB#: [id number] CC:
--- NOTE | 2018-11-11 18:02 | Pulmonology Progress Note ---
Assessment/Plan Assessment/Plan 1. No SVC syndrome on CTA 2. End-stage renal disease, on dialysis, status post multiple upper extremity vascular procedures. 3. Coronary artery bypass surgery. 4. Diabetes. 5. Dysphonia, tongue swelling; s/p trach 6. Resp failure, hypercapneic PLAN: looks much better, more alert trach/vent - wean as tolerated CT neck no mass, R effusion tolerates feeds disc w ENT thoracentesis - may help with weaning Subjective ROS Limited/Unobtainable: Yes Allergies: Coded Allergies: CEPHALEXIN (Unverified Allergy, Unknown, 02/24/14) SULFAMETHOXAZOLE (Unverified Allergy, Unknown, 02/24/14) TRIMETHOPRIM (Unverified Allergy, Unknown, 02/24/14) Objective Last 24 Hour Vital Signs Date Time Temp Pulse Resp B/P (MAP) Pulse Ox O2 Delivery O2 Flow Rate FiO2 11/11/18 16:30 88 16 40 11/11/18 16:00 40 11/11/18 16:00 Mechanical Ventilator 11/11/18 16:00 85 11/11/18 16:00 98.2 84 16 112/47 (68) 100 11/11/18 14:40 86 16 40 11/11/18 13:18 81 26 40 11/11/18 12:00 87 11/11/18 12:00 84 19 105/41 (62) 99 11/11/18 12:00 40 11/11/18 12:00 Mechanical Ventilator 11/11/18 11:00 90 16 108/21 (50) 99 11/11/18 10:54 92 21 40 40 11/11/18 10:40 87 15 40 40 11/11/18 10:36 40 11/11/18 10:00 87 19 113/27 (55) 99 11/11/18 09:45 87 21 40 40 11/11/18 09:45 100 11/11/18 09:00 82 98/40 11/11/18 09:00 81 19 98/31 (53) 99 11/11/18 08:00 84 19 97/74 (82) 100 11/11/18 08:00 Mechanical Ventilator 11/11/18 08:00 84 11/11/18 08:00 40 11/11/18 07:00 98.2 84 19 103/42 (62) 99 11/11/18 06:34 89 21 40 11/11/18 06:00 98.0 11/11/18 06:00 98.0 86 16 129/74 (92) 99 11/11/18 05:04 90 19 40 11/11/18 05:00 90 19 130/27 (61) 99 11/11/18 04:00 87 11/11/18 04:00 40 11/11/18 04:00 88 20 116/48 (70) 98 11/11/18 04:00 Mechanical Ventilator 11/11/18 03:35 87 16 40 11/11/18 03:00 88 17 128/39 (68) 99 11/11/18 02:00 86 14 127/26 (59) 98 11/11/18 01:15 86 16 40 11/11/18 01:00 98.7 86 17 111/65 (80) 98 11/11/18 00:00 40 11/11/18 00:00 87 11/11/18 00:00 80 18 93/42 (59) 98 11/11/18 00:00 Mechanical Ventilator 11/10/18 23:09 80 20 40 11/10/18 23:00 80 10 120/53 (75) 99 11/10/18 22:00 79 16 103/58 (73) 98 11/10/18 21:42 71 100/51 11/10/18 21:23 79 21 40 11/10/18 21:00 98.4 78 11 126/39 (68) 99 11/10/18 20:00 81 17 133/52 (79) 99 11/10/18 20:00 40 11/10/18 20:00 Mechanical Ventilator 11/10/18 19:23 79 19 40 11/10/18 19:00 80 19 131/50 (77) 99 Intake and Output 11/10/18 11/11/18 19:00 07:00 Intake Total 216 ml 470 ml Output Total 0 ml 0 ml Balance 216 ml 470 ml Tube Feeding 216 ml 420 ml Other 50 ml Output Urine Total 0 ml 0 ml Objective trach General Appearance: no acute distress HEENT: atraumatic Respiratory/Chest: lungs clear, decreased breath sounds Cardiovascular: normal rate Laboratory Tests 11/11/18 03:30: White Blood Count 8.3, Red Blood Count 5.15, Hemoglobin 13.1L, Hematocrit 42.6, Mean Corpuscular Volume 83, Mean Corpuscular Hemoglobin 25.5L, Mean Corpuscular Hemoglobin Concent 30.8L, Red Cell Distribution Width 17.5H, Platelet Count 166 , Mean Platelet Volume 7.4, Neutrophils (%) (Auto) 75.6H, Lymphocytes (%) (Auto ) 15.4L, Monocytes (%) (Auto) 8.2, Eosinophils (%) (Auto) 0.0, Basophils (%) ( Auto) 0.7, Sodium Level 131L, Potassium Level 4.5, Chloride Level 90L, Carbon Dioxide Level 29, Anion Gap 12, Blood Urea Nitrogen 59H, Creatinine 9.3H, Estimat Glomerular Filtration Rate 5.7, Glucose Level 141H, Calcium Level 9.0, Phosphorus Level 7.4H, Magnesium Level 2.0, Total Bilirubin 0.5, Aspartate Amino Transf (AST/SGOT) 15, Alanine Aminotransferase (ALT/SGPT) 13, Alkaline Phosphatase 84, C-Reactive Protein, Quantitative 13.7H, Pro-B-Type Natriuretic Peptide > 56785T, Total Protein 6.8, Albumin 2.7L, Globulin 4.1, Albumin/ Globulin Ratio 0.7L, Random Vancomycin Level 17.2 Current Medications Medications (Trade) Dose Ordered Sig/Aleks Route PRN Reason Start Time Stop Time Status Last Admin Dose Admin Acetaminophen (Tylenol) 650 mg Q4H PRN ORAL Mild Pain/Temp > 100.5 11/11/18 14:45 11/30/18 22:44 Aspirin (Ecotrin) 81 mg DAILY ORAL 11/12/18 09:00 12/03/18 08:59 Atorvastatin Calcium (Lipitor) 10 mg BEDTIME ORAL 11/11/18 21:00 12/02/18 20:59 Carvedilol (Coreg) 6.25 mg EVERY 12 HOURS ORAL 11/11/18 21:00 12/01/18 08:59 Chlorhexidine Gluconate (Glo-Hex 2%) 1 applic DAILY@1999 TOPIC 11/11/18 20:00 12/08/18 19:59 Dextrose (Dextrose 50%) 25 ml Q30M PRN IV Hypoglycemia 11/11/18 14:45 11/30/18 22:44 Dextrose (Dextrose 50%) 50 ml Q30M PRN IV Hypoglycemia 11/11/18 14:45 11/30/18 22:44 Docusate Sodium (Colace) 100 mg TIDPRN PRN ORAL Constipation 11/11/18 15:30 12/11/18 15:29 Hydralazine HCl (Apresoline) 10 mg Q6H PRN IV For High Blood Pressure 11/11/18 14:39 12/11/18 14:38 Insulin Aspart (NovoLOG) BEFORE MEALS AND HS SUBQ 11/11/18 16:30 12/01/18 06:29 11/11/18 17:53 Lansoprazole (Prevacid) 30 mg BID NG 11/11/18 18:00 12/11/18 17:59 11/11/18 17:54 Morphine Sulfate (Morphine Sulfate) 4 mg Q4H PRN IVP for moderate pain 11/11/18 14:39 11/18/18 14:38 11/11/18 15:56 Nicotine (Nicoderm) 1 patch Q24H TDERMAL 11/11/18 22:15 12/01/18 22:14 Nystatin (Nystatin) 5 ml QID ORAL 11/11/18 18:00 11/17/18 17:59 11/11/18 17:53 Polyethylene Glycol (Miralax) 17 gm DAILYPRN PRN ORAL Constipation 11/11/18 15:30 12/11/18 15:29 Sevelamer Carbonate (Renvela) 1,600 mg THREE TIMES A DAY NG 11/11/18 18:00 12/11/18 08:59 11/11/18 17:54 Tacrolimus (Prograf) 2 mg MoWeFr@0000,1200 ORAL 11/13/18 00:00 12/02/18 00:00 Tacrolimus (Prograf) 2 mg SuTuThSa@0900,2100 ORAL 11/12/18 09:00 12/01/18 20:59 Saroj Mendoza MD Nov 11, 2018 18:02
[2018-11-11] MEDS: Miralax 17gm pkt ORAL PRN (19:22)
[2018-11-11] MEDS: Dyna-Hex 2% Top Sol 2oz TOPIC SCH (20:19)
--- NOTE | 2018-11-11 22:30 | Progress Note ---
DATE: 11/11/2018 SUBJECTIVE: This is a 68-year-old male. He is on trach the subacute. He is doing fine. OBJECTIVE: VITAL SIGNS: Blood pressure 112/47 and pulse 84. No fever. CHEST: Bilaterally few crackles. CARDIOVASCULAR: Regular rhythm. ABDOMEN: Soft. EXTREMITIES: CCE. NEUROLOGICAL: Status post tracheostomy. GENITOURINARY: Deferred. LABORATORY DATA: White count is 8.3, hemoglobin 13, hematocrit 43, and platelets are 166,000. Chemistry panel, sodium 131, potassium 4.5, BUN 59, and creatinine 9.3. BNP was 35,000. ASSESSMENT AND PLAN: 1. Fluid overload. 2. Congestive heart failure. 3. Angioedema. 4. Encephalopathy. 5. Diabetes. PLAN: We will currently continue current medical treatment. Continue tacrolimus. Current aspirin. Continue nicotine plus Lipitor and carvedilol. Continue . Continue insulin sliding scale. We will consider for a long-term hospital. Jamari Carter M.D. DR: CHICHI JOB#: [id number] CC:
[2018-11-12] VITALS (7 sets, daily range): BP systolic 109–179; BP diastolic 54–92
[2018-11-12] MEDS: Morphine Sulfate 4mg/ml Inj (IV USE ONLY) IVP PRN ×2 (04:31→09:43)
[2018-11-12 05:41] LABS: INR 1.1 (0.9-1.1)
[2018-11-12 05:57] LABS: ALANINE AMINOTRANSFERASE 13 U/L (12-78); ALBUMIN 2.6 G/DL (3.4-5.0); ALBUMIN/GLOBULIN RATIO 0.6 (1.0-2.7); ALKALINE PHOSPHATASE 86 U/L (46-116); ANION GAP 11 mmol/L (5-15); ASPARTATE AMINO TRANSFERASE 12 U/L (15-37); BILIRUBIN,TOTAL 0.4 MG/DL (0.2-1.0); BLOOD UREA NITROGEN 51 mg/dL (7-18); CALCIUM 9.1 MG/DL (8.5-10.1); CARBON DIOXIDE 29 MMOL/L (21-32); CHLORIDE 92 MMOL/L (98-107); CREATININE 8.1 MG/DL (0.55-1.30); POTASSIUM 4.8 MMOL/L (3.5-5.1); SODIUM 132 MMOL/L (136-145)
[2018-11-12] MEDS: Miralax 17gm pkt ORAL PRN (06:04)
[2018-11-12] MEDS: NovoLOG Insulin Flexpen SUBQ SCH ×3 (06:19→18:32)
[2018-11-12 06:33] LABS: BASOPHILS % (AUTO) 0.8 % (0.0-2.0); HEMATOCRIT 42.3 % (42.0-52.0); HEMOGLOBIN 12.9 G/DL (14.2-18.0); LYMPHOCYTES % (AUTO) 12.5 % (20.0-45.0); MEAN CORPUSCULAR VOLUME 83 FL (80-99); MONOCYTES % (AUTO) 7.2 % (1.0-10.0); NEUTROPHILS % (AUTO) 79.6 % (45.0-75.0); PLATELET COUNT 159 K/UL (150-450); RED BLOOD COUNT 5.09 M/UL (4.70-6.10); RED CELL DISTRIBUTION WIDTH 17.8 % (11.6-14.8); WHITE BLOOD COUNT 8.4 K/UL (4.8-10.8)
[2018-11-12] MEDS ORDERED: Vancomycin 1 GM in D5W 275 ML IVPB ONE ×4 (09:00)
[2018-11-12] MEDS ORDERED: Aspirin EC 81mg tab ORAL SCH (09:00)
--- NOTE | 2018-11-12 09:29 | General Progress Note ---
Progress Note Progress Note ENT Fiberoptic laryngoscopy at bedside-inconclusive for upper airway swelling. Pt. unable to clear secretions. Op note dictated. I have asked speech pathology to work with him at bedside re swallowing. I will rescope next week. If pt is stable, consider downsizing trach next week with goal of continuing to downsize and possible removing. Alex Man MD Nov 12, 2018 09:29
[2018-11-12] MEDS: Nystatin Susp 500,000 units/5ml ORAL SCH ×4 (09:44→20:21)
[2018-11-12] MEDS: Carvedilol 6.25mg Tab ORAL SCH (09:44)
[2018-11-12] MEDS: Renvela 800mg Pkt NG SCH ×3 (09:45→17:43)
--- NOTE | 2018-11-12 10:49 | Cardiac Electrophysiology PN ---
Assessment/Plan Assessment/Plan 1. Troponin elevation. No chest pain. Already revascularized by CABG. Likely due to renal failure. On Coreg 6.25 mg bid, aspirin and Lipitor 2. Status post coronary bypass graft 3. Nonsustained ventricular tachycardia. The patient has history of prior myocardial infarction and bypass. EF 55%. No Syncope 4. Congestive heart failure. On hemodialysis, per Dr. Stevens. 5. End-stage renal disease, on hemodialysis. 6. Status post right sided Medtronic dual chamber pacemaker with Nl Fx. 7. Right foot ulcer. Antibiotic per Dr. Landis. FU by Dr. Huizar 8. History of liver transplant on Prograf 9. Respiratory failure, ? etiology anaphylaxisS/P Emergency tracheostomy. 10. Pleural effusion. Thoracentesis pending XIOMARA RN Subjective Subjective Transferred out of ICU on the vent in SIMV mode.Alert. Feeding via NG. NPO for Right thoracentesis.Swallow eval pending Objective Last 24 Hour Vital Signs Date Time Temp Pulse Resp B/P (MAP) Pulse Ox O2 Delivery O2 Flow Rate FiO2 11/12/18 09:44 87 136/92 11/12/18 09:12 87 21 40 11/12/18 08:00 98.2 91 16 136/92 (107) 98 11/12/18 08:00 Mechanical Ventilator 11/12/18 08:00 40 11/12/18 07:52 90 11/12/18 07:40 89 19 40 11/12/18 05:25 84 20 40 40 11/12/18 04:00 98.2 97 16 149/78 (101) 97 11/12/18 04:00 40 11/12/18 04:00 Mechanical Ventilator 11/12/18 04:00 88 11/12/18 03:08 86 19 40 40 11/12/18 00:41 90 18 40 40 11/12/18 00:15 97.2 90 19 159/83 (108) 100 11/12/18 00:00 89 11/12/18 00:00 Mechanical Ventilator 11/12/18 00:00 97.2 90 20 179/92 (121) 100 11/11/18 23:05 88 18 40 40 11/11/18 21:05 87 153/97 11/11/18 21:00 89 18 40 40 11/11/18 20:00 85 11/11/18 20:00 40 11/11/18 20:00 Mechanical Ventilator 11/11/18 20:00 98.2 87 18 153/97 (115) 100 11/11/18 19:28 90 18 40 40 11/11/18 16:30 88 16 40 11/11/18 16:00 40 11/11/18 16:00 Mechanical Ventilator 11/11/18 16:00 85 11/11/18 16:00 98.2 84 16 112/47 (68) 100 11/11/18 14:40 86 16 40 11/11/18 13:18 81 26 40 11/11/18 12:00 87 11/11/18 12:00 84 19 105/41 (62) 99 11/11/18 12:00 40 11/11/18 12:00 Mechanical Ventilator 11/11/18 11:00 90 16 108/21 (50) 99 11/11/18 10:54 92 21 40 40 Intake and Output 11/11/18 11/12/18 18:59 06:59 Intake Total 594 ml 504 ml Output Total 2000 ml Balance -1406 ml 504 ml Free Water 90 ml Tube Feeding 504 ml 504 ml Output Urine Total 0 ml Hemodialysis UF 2000 ml Laboratory Tests Test 11/12/18 04:00 White Blood Count 8.4 K/UL (4.8-10.8) Red Blood Count 5.09 M/UL (4.70-6.10) Hemoglobin 12.9 G/DL (14.2-18.0) L Hematocrit 42.3 % (42.0-52.0) Mean Corpuscular Volume 83 FL (80-99) Mean Corpuscular Hemoglobin 25.3 PG (27.0-31.0) L Mean Corpuscular Hemoglobin Concent 30.5 G/DL (32.0-36.0) L Red Cell Distribution Width 17.8 % (11.6-14.8) H Platelet Count 159 K/UL (150-450) Mean Platelet Volume 7.6 FL (6.5-10.1) Neutrophils (%) (Auto) 79.6 % (45.0-75.0) H Lymphocytes (%) (Auto) 12.5 % (20.0-45.0) L Monocytes (%) (Auto) 7.2 % (1.0-10.0) Eosinophils (%) (Auto) 0.0 % (0.0-3.0) Basophils (%) (Auto) 0.8 % (0.0-2.0) Prothrombin Time 11.5 SEC (9.30-11.50) Prothromb Time International Ratio 1.1 (0.9-1.1) Activated Partial Thromboplast Time 34 SEC (23-33) H Sodium Level 132 MMOL/L (136-145) L Potassium Level 4.8 MMOL/L (3.5-5.1) Chloride Level 92 MMOL/L (98-107) L Carbon Dioxide Level 29 MMOL/L (21-32) Anion Gap 11 mmol/L (5-15) Blood Urea Nitrogen 51 mg/dL (7-18) H Creatinine 8.1 MG/DL (0.55-1.30) H Estimat Glomerular Filtration Rate 6.7 mL/min (>60) Glucose Level 186 MG/DL (74-106) H Calcium Level 9.1 MG/DL (8.5-10.1) Total Bilirubin 0.4 MG/DL (0.2-1.0) Aspartate Amino Transf (AST/SGOT) 12 U/L (15-37) L Alanine Aminotransferase (ALT/SGPT) 13 U/L (12-78) Alkaline Phosphatase 86 U/L (46-116) Total Protein 6.7 G/DL (6.4-8.2) Albumin 2.6 G/DL (3.4-5.0) L Globulin 4.1 g/dL Albumin/Globulin Ratio 0.6 (1.0-2.7) L Objective HEAD AND NECK: No JVD.Tracheostomy intact .NG is in LUNGS: Coarse rhonchi. CARDIOVASCULAR: Regular S1 and S2 with no gallop. Sternotomy is intact Pacemaker in the right subclavian ABDOMEN: Soft. EXTREMITIES: 1+ pitting edema Shivam Sharpe MD Nov 12, 2018 10:49
--- NOTE | 2018-11-12 11:21 | GI Progress Note ---
Assessment/Plan Problems: (1) Foot ulcer ICD Codes: L97.509 - Non-pressure chronic ulcer of other part of unspecified foot with unspecified severity SNOMED: 94625792 Qualifiers: Qualified Codes: L97.511 - Non-pressure chronic ulcer of other part of right foot limited to breakdown of skin (2) DM (diabetes mellitus) ICD Codes: E11.9 - Type 2 diabetes mellitus without complications SNOMED: 63712243 (3) Transplant ICD Codes: Z94.9 - Transplanted organ and tissue status, unspecified SNOMED: 331203910 Status: unchanged Status Narrative Discussed with Dr. Escalera Assessment/Plan History of liver transplant, currently on Prograf constipation Patient now in ICU, status post emergency tracheostomy ST evaluation unable to be performed, patient noncompliant cont tacrolimus cont NGTFs, await ST reevaluation >> PEG if necessary prn transfusions ppi zofran prn Bowel regimen Trend LFTs follow labs The patient was seen and examined at bedside and all new and available data was reviewed in the patients chart. I agree with the above findings, impression and plan. (Patient seen earlier today. Signature stamp does not reflect patient encounter time.). - Jorge Escalera MD Subjective Subjective Limited Objective Last 24 Hour Vital Signs Date Time Temp Pulse Resp B/P (MAP) Pulse Ox O2 Delivery O2 Flow Rate FiO2 11/12/18 09:44 87 136/92 11/12/18 09:12 87 21 40 11/12/18 08:00 98.2 91 16 136/92 (107) 98 11/12/18 08:00 Mechanical Ventilator 11/12/18 08:00 40 11/12/18 07:52 90 11/12/18 07:40 89 19 40 11/12/18 05:25 84 20 40 40 11/12/18 04:00 98.2 97 16 149/78 (101) 97 11/12/18 04:00 40 11/12/18 04:00 Mechanical Ventilator 11/12/18 04:00 88 11/12/18 03:08 86 19 40 40 11/12/18 00:41 90 18 40 40 11/12/18 00:15 97.2 90 19 159/83 (108) 100 11/12/18 00:00 89 11/12/18 00:00 Mechanical Ventilator 11/12/18 00:00 97.2 90 20 179/92 (121) 100 11/11/18 23:05 88 18 40 40 11/11/18 21:05 87 153/97 11/11/18 21:00 89 18 40 40 11/11/18 20:00 85 11/11/18 20:00 40 11/11/18 20:00 Mechanical Ventilator 11/11/18 20:00 98.2 87 18 153/97 (115) 100 11/11/18 19:28 90 18 40 40 11/11/18 16:30 88 16 40 11/11/18 16:00 40 11/11/18 16:00 Mechanical Ventilator 11/11/18 16:00 85 11/11/18 16:00 98.2 84 16 112/47 (68) 100 11/11/18 14:40 86 16 40 11/11/18 13:18 81 26 40 11/11/18 12:00 87 11/11/18 12:00 84 19 105/41 (62) 99 11/11/18 12:00 40 11/11/18 12:00 Mechanical Ventilator Intake and Output 11/11/18 11/12/18 18:59 06:59 Intake Total 594 ml 504 ml Output Total 2000 ml Balance -1406 ml 504 ml Free Water 90 ml Tube Feeding 504 ml 504 ml Output Urine Total 0 ml Hemodialysis UF 2000 ml Laboratory Tests Test 11/12/18 04:00 White Blood Count 8.4 K/UL (4.8-10.8) Red Blood Count 5.09 M/UL (4.70-6.10) Hemoglobin 12.9 G/DL (14.2-18.0) L Hematocrit 42.3 % (42.0-52.0) Mean Corpuscular Volume 83 FL (80-99) Mean Corpuscular Hemoglobin 25.3 PG (27.0-31.0) L Mean Corpuscular Hemoglobin Concent 30.5 G/DL (32.0-36.0) L Red Cell Distribution Width 17.8 % (11.6-14.8) H Platelet Count 159 K/UL (150-450) Mean Platelet Volume 7.6 FL (6.5-10.1) Neutrophils (%) (Auto) 79.6 % (45.0-75.0) H Lymphocytes (%) (Auto) 12.5 % (20.0-45.0) L Monocytes (%) (Auto) 7.2 % (1.0-10.0) Eosinophils (%) (Auto) 0.0 % (0.0-3.0) Basophils (%) (Auto) 0.8 % (0.0-2.0) Prothrombin Time 11.5 SEC (9.30-11.50) Prothromb Time International Ratio 1.1 (0.9-1.1) Activated Partial Thromboplast Time 34 SEC (23-33) H Sodium Level 132 MMOL/L (136-145) L Potassium Level 4.8 MMOL/L (3.5-5.1) Chloride Level 92 MMOL/L (98-107) L Carbon Dioxide Level 29 MMOL/L (21-32) Anion Gap 11 mmol/L (5-15) Blood Urea Nitrogen 51 mg/dL (7-18) H Creatinine 8.1 MG/DL (0.55-1.30) H Estimat Glomerular Filtration Rate 6.7 mL/min (>60) Glucose Level 186 MG/DL (74-106) H Calcium Level 9.1 MG/DL (8.5-10.1) Total Bilirubin 0.4 MG/DL (0.2-1.0) Aspartate Amino Transf (AST/SGOT) 12 U/L (15-37) L Alanine Aminotransferase (ALT/SGPT) 13 U/L (12-78) Alkaline Phosphatase 86 U/L (46-116) Total Protein 6.7 G/DL (6.4-8.2) Albumin 2.6 G/DL (3.4-5.0) L Globulin 4.1 g/dL Albumin/Globulin Ratio 0.6 (1.0-2.7) L Height (Feet): 5 Height (Inches): 10.00 Weight (Pounds): 200 General Appearance: WD/WN, no apparent distress, alert Cardiovascular: normal rate Respiratory/Chest: normal breath sounds, no respiratory distress, other - Tracheostomy Abdominal Exam: normal bowel sounds, non tender, soft Extremities: non-tender Kelvin Briggs NP Nov 12, 2018 11:21
--- NOTE | 2018-11-12 12:49 | Diagnostic Imaging Report ---
Indications: Pleural effusion Technique: Ultrasound used to localize optimal puncture site. Sterile prepping and draping of the right lower chest performed. Local anesthesia with 1% lidocaine. Dermatotomy made. Puncture of the pleural space using thoracentesis needle. Stylet removed. Catheter placed to vacuum bottle suction. Fluid was aspirated. Patient tolerated procedure well, without immediate complication. Findings: Followup sonography demonstrates complete resolution of pleural fluid. Followup chest x-ray is pending. Impression: Successful ultrasound-guided right thoracentesis, yielding 1.55 liters of fluid
--- NOTE | 2018-11-12 13:34 | Consultation ---
History of Present Illness General Chief Complaint: Skin Rash/Abscess Reason for Consultation: refusing treatment agitation Present Illness HPI 68-year-old male with past medical history of coronary artery disease, pacemaker placement, valve surgery, and fistula creation for dialysis, myocardial infarction. the pt has NG tube and has been agitated and refusing care/treatment. the pt was uncooperative with the exam and closed his eyes when i was speaking to him. the pt has been uncooperative with the weaning process. the pt appeared ?confused? Allergies: Coded Allergies: CEPHALEXIN (Unverified Allergy, Unknown, 02/24/14) SULFAMETHOXAZOLE (Unverified Allergy, Unknown, 02/24/14) TRIMETHOPRIM (Unverified Allergy, Unknown, 02/24/14) Medication History Scheduled Allopurinol* (Allopurinol*), 100 MG ORAL DAILY, (Reported) Calcium Acetate (Calcium Acetate), 667 MG PO BID, (Reported) Carvedilol* (Carvedilol*), 6.25 MG ORAL EVERY 12 HOURS, (Reported) Midodrine (Midodrine HCl), 5 MG ORAL BEFORE MEALS, (Reported) Nateglinide (Starlix), 120 MG ORAL THREE TIMES A DAY, (Reported) Omeprazole (Omeprazole), 20 MG ORAL BID, (Reported) Rosuvastatin Calcium* (Crestor*), 10 MG ORAL HS, (Reported) Tacrolimus (Tacrolimus), 2 MG PO BID, (Reported) Telmisartan (Telmisartan), 10 MG PO at noon, (Reported) Torsemide* (Demadex*), 100 MG PO DAILY, (Reported) Vitamin B Cmplx/Vit C/Folic AC (Nephro-Lexii Tablet), 1 TAB ORAL DAILY, (Reported ) Scheduled PRN Oxycodone/Acetaminophen 5-325* (Percocet 5-325 Mg Tablet*), 1 TAB ORAL Q4H PRN for For Pain, (Reported) Patient History Limited by: medical condition History Provided By: Medical Record, PMD 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 (8) Rash and other nonspecific skin eruption (9) NSTEMI (non-ST elevated myocardial infarction) (10) ESRD (end stage renal disease) on dialysis (11) Elevated troponin (12) Foot ulcer (13) DM (diabetes mellitus) (14) CHF (congestive heart failure) (15) Pacemaker (16) Elevated troponin and foot ulcer (17) Cellulitis, abdominal wall (18) Encephalopathy acute (19) Pericardial effusion (20) Tachycardia (21) Sepsis (22) HTN (hypertension) (23) Severe tongue swelling (24) Severe tongue swelling Review of Systems Psychiatric: Reports: anxiety Physical Exam General Appearance: alert, moderate distress, agitated Last 24 Hour Vital Signs Date Time Temp Pulse Resp B/P (MAP) Pulse Ox O2 Delivery O2 Flow Rate FiO2 11/12/18 13:12 89 16 40 11/12/18 12:00 Mechanical Ventilator 11/12/18 12:00 98.6 87 20 117/54 (75) 98 11/12/18 12:00 40 11/12/18 11:21 84 22 40 11/12/18 09:44 87 136/92 11/12/18 09:12 87 21 40 11/12/18 08:00 98.2 91 16 136/92 (107) 98 11/12/18 08:00 Mechanical Ventilator 11/12/18 08:00 40 11/12/18 07:52 90 11/12/18 07:40 89 19 40 11/12/18 05:25 84 20 40 40 11/12/18 04:00 98.2 97 16 149/78 (101) 97 11/12/18 04:00 40 11/12/18 04:00 Mechanical Ventilator 11/12/18 04:00 88 11/12/18 03:08 86 19 40 40 11/12/18 00:41 90 18 40 40 11/12/18 00:15 97.2 90 19 159/83 (108) 100 11/12/18 00:00 89 11/12/18 00:00 Mechanical Ventilator 11/12/18 00:00 97.2 90 20 179/92 (121) 100 11/11/18 23:05 88 18 40 40 11/11/18 21:05 87 153/97 11/11/18 21:00 89 18 40 40 11/11/18 20:00 85 11/11/18 20:00 40 11/11/18 20:00 Mechanical Ventilator 11/11/18 20:00 98.2 87 18 153/97 (115) 100 11/11/18 19:28 90 18 40 40 11/11/18 16:30 88 16 40 11/11/18 16:00 40 11/11/18 16:00 Mechanical Ventilator 11/11/18 16:00 85 11/11/18 16:00 98.2 84 16 112/47 (68) 100 11/11/18 14:40 86 16 40 Intake and Output 11/11/18 11/12/18 18:59 06:59 Intake Total 594 ml 504 ml Output Total 2000 ml Balance -1406 ml 504 ml Free Water 90 ml Tube Feeding 504 ml 504 ml Output Urine Total 0 ml Hemodialysis UF 2000 ml Laboratory Tests Test 11/12/18 04:00 White Blood Count 8.4 K/UL (4.8-10.8) Red Blood Count 5.09 M/UL (4.70-6.10) Hemoglobin 12.9 G/DL (14.2-18.0) L Hematocrit 42.3 % (42.0-52.0) Mean Corpuscular Volume 83 FL (80-99) Mean Corpuscular Hemoglobin 25.3 PG (27.0-31.0) L Mean Corpuscular Hemoglobin Concent 30.5 G/DL (32.0-36.0) L Red Cell Distribution Width 17.8 % (11.6-14.8) H Platelet Count 159 K/UL (150-450) Mean Platelet Volume 7.6 FL (6.5-10.1) Neutrophils (%) (Auto) 79.6 % (45.0-75.0) H Lymphocytes (%) (Auto) 12.5 % (20.0-45.0) L Monocytes (%) (Auto) 7.2 % (1.0-10.0) Eosinophils (%) (Auto) 0.0 % (0.0-3.0) Basophils (%) (Auto) 0.8 % (0.0-2.0) Prothrombin Time 11.5 SEC (9.30-11.50) Prothromb Time International Ratio 1.1 (0.9-1.1) Activated Partial Thromboplast Time 34 SEC (23-33) H Sodium Level 132 MMOL/L (136-145) L Potassium Level 4.8 MMOL/L (3.5-5.1) Chloride Level 92 MMOL/L (98-107) L Carbon Dioxide Level 29 MMOL/L (21-32) Anion Gap 11 mmol/L (5-15) Blood Urea Nitrogen 51 mg/dL (7-18) H Creatinine 8.1 MG/DL (0.55-1.30) H Estimat Glomerular Filtration Rate 6.7 mL/min (>60) Glucose Level 186 MG/DL (74-106) H Calcium Level 9.1 MG/DL (8.5-10.1) Total Bilirubin 0.4 MG/DL (0.2-1.0) Aspartate Amino Transf (AST/SGOT) 12 U/L (15-37) L Alanine Aminotransferase (ALT/SGPT) 13 U/L (12-78) Alkaline Phosphatase 86 U/L (46-116) Total Protein 6.7 G/DL (6.4-8.2) Albumin 2.6 G/DL (3.4-5.0) L Globulin 4.1 g/dL Albumin/Globulin Ratio 0.6 (1.0-2.7) L Height (Feet): 5 Height (Inches): 10.00 Weight (Pounds): 200 Medications Current Medications Medications (Trade) Dose Ordered Sig/Aleks Route PRN Reason Start Time Stop Time Status Last Admin Dose Admin Acetaminophen (Tylenol) 650 mg Q4H PRN ORAL Mild Pain/Temp > 100.5 11/11/18 14:45 11/30/18 22:44 Aspirin (Ecotrin) 81 mg DAILY ORAL 11/12/18 09:00 12/03/18 08:59 Atorvastatin Calcium (Lipitor) 10 mg BEDTIME ORAL 11/11/18 21:00 12/02/18 20:59 11/11/18 21:06 Carvedilol (Coreg) 6.25 mg EVERY 12 HOURS ORAL 11/11/18 21:00 12/01/18 08:59 11/12/18 09:44 Chlorhexidine Gluconate (Glo-Hex 2%) 1 applic DAILY@1999 TOPIC 11/11/18 20:00 12/08/18 19:59 11/11/18 20:19 Dextrose (Dextrose 50%) 25 ml Q30M PRN IV Hypoglycemia 11/11/18 14:45 11/30/18 22:44 Dextrose (Dextrose 50%) 50 ml Q30M PRN IV Hypoglycemia 11/11/18 14:45 11/30/18 22:44 Docusate Sodium (Colace) 100 mg TIDPRN PRN ORAL Constipation 11/11/18 15:30 12/11/18 15:29 Hydralazine HCl (Apresoline) 10 mg Q6H PRN IV For High Blood Pressure 11/11/18 14:39 12/11/18 14:38 Insulin Aspart (NovoLOG) EVERY 6 HOURS SUBQ 11/12/18 12:00 12/01/18 06:29 Lansoprazole (Prevacid) 30 mg BID NG 11/11/18 18:00 12/11/18 17:59 11/12/18 09:44 Morphine Sulfate (Morphine Sulfate) 4 mg Q4H PRN IVP for moderate pain 11/11/18 14:39 11/18/18 14:38 11/12/18 09:43 Nicotine (Nicoderm) 1 patch Q24H TDERMAL 11/11/18 22:15 12/01/18 22:14 11/11/18 22:22 Nystatin (Nystatin) 5 ml QID ORAL 11/11/18 18:00 11/17/18 17:59 11/12/18 12:57 Olanzapine (ZyPREXA) 2.5 mg BEDTIME ORAL 11/12/18 21:00 12/12/18 20:59 UNV Polyethylene Glycol (Miralax) 17 gm DAILYPRN PRN ORAL Constipation 11/11/18 15:30 12/11/18 15:29 11/12/18 06:04 Sevelamer Carbonate (Renvela) 1,600 mg THREE TIMES A DAY NG 11/11/18 18:00 12/11/18 08:59 11/12/18 12:57 Tacrolimus (Prograf) 2 mg MoWeFr@0000,1200 ORAL 11/13/18 00:00 12/02/18 00:00 Tacrolimus (Prograf) 2 mg SuTuThSa@0900,2100 ORAL 11/12/18 09:00 12/01/18 20:59 11/12/18 09:44 Assessment/Plan Problem List: (1) Encephalopathy acute ICD Codes: G93.40 - Encephalopathy, unspecified SNOMED: 36626401, [id number] Assessment/Plan zyprexa 2.5mg po qhs educate him in regards to weaning process. Jeffrey Lala MD Nov 12, 2018 13:34
--- NOTE | 2018-11-12 13:39 | Diagnostic Imaging Report ---
Indication: Status post thoracentesis Comparison: 11/09/2018 A single view chest radiograph was obtained. Findings: No pneumothorax demonstrated following thoracentesis which was performed on the right side. A small right residual pleural effusion noted blunting the costophrenic angle. Mild interstitial edema noted. IMPRESSION: No pneumothorax
--- NOTE | 2018-11-12 14:29 | Nephrology Progress Note ---
Assessment/Plan Problem List: (1) ESRD (end stage renal disease) on dialysis (2) Foot ulcer (3) CHF (congestive heart failure) (4) Pacemaker (5) Acute respiratory failure Assessment: with Co2 retention Assessment ESRD with high K and SOB on admit Foot ulcer, likely infected High Troponin likely NSTMI Pacer , Pleural effusion s/p CABGS s/p Liver transplant Plan Now has tracheostomy DC IV fluid discussed with Dr Mendoza 11/06 DC unnecessary pills as patient NPO One dose of solumedrol 11/06 and again 11/08 HD 11/13 I adjust Vanco dosages- redose 11/12 monitor Vanco level start tube feeding per cardio and ID Poor Prognosis Podiatry and Vascular surgical eval Subjective ROS Limited/Unobtainable: No Objective Objective Last 24 Hour Vital Signs Date Time Temp Pulse Resp B/P (MAP) Pulse Ox O2 Delivery O2 Flow Rate FiO2 11/12/18 13:12 89 16 40 11/12/18 12:00 Mechanical Ventilator 11/12/18 12:00 98.6 87 20 117/54 (75) 98 11/12/18 12:00 40 11/12/18 11:21 84 22 40 11/12/18 09:44 87 136/92 11/12/18 09:12 87 21 40 11/12/18 08:00 98.2 91 16 136/92 (107) 98 11/12/18 08:00 Mechanical Ventilator 11/12/18 08:00 40 11/12/18 07:52 90 11/12/18 07:40 89 19 40 11/12/18 05:25 84 20 40 40 11/12/18 04:00 98.2 97 16 149/78 (101) 97 11/12/18 04:00 40 11/12/18 04:00 Mechanical Ventilator 11/12/18 04:00 88 11/12/18 03:08 86 19 40 40 11/12/18 00:41 90 18 40 40 11/12/18 00:15 97.2 90 19 159/83 (108) 100 11/12/18 00:00 89 11/12/18 00:00 Mechanical Ventilator 11/12/18 00:00 97.2 90 20 179/92 (121) 100 11/11/18 23:05 88 18 40 40 11/11/18 21:05 87 153/97 11/11/18 21:00 89 18 40 40 11/11/18 20:00 85 11/11/18 20:00 40 11/11/18 20:00 Mechanical Ventilator 11/11/18 20:00 98.2 87 18 153/97 (115) 100 11/11/18 19:28 90 18 40 40 11/11/18 16:30 88 16 40 11/11/18 16:00 40 11/11/18 16:00 Mechanical Ventilator 11/11/18 16:00 85 11/11/18 16:00 98.2 84 16 112/47 (68) 100 11/11/18 14:40 86 16 40 Intake and Output 11/11/18 11/12/18 19:00 07:00 Intake Total 594 ml 504 ml Output Total 2000 ml Balance -1406 ml 504 ml Free Water 90 ml Tube Feeding 504 ml 504 ml Output Urine Total 0 ml Hemodialysis UF 2000 ml Laboratory Tests 11/12/18 04:00: White Blood Count 8.4, Red Blood Count 5.09, Hemoglobin 12.9L, Hematocrit 42.3, Mean Corpuscular Volume 83, Mean Corpuscular Hemoglobin 25.3L, Mean Corpuscular Hemoglobin Concent 30.5L, Red Cell Distribution Width 17.8H, Platelet Count 159 , Mean Platelet Volume 7.6, Neutrophils (%) (Auto) 79.6H, Lymphocytes (%) (Auto ) 12.5L, Monocytes (%) (Auto) 7.2, Eosinophils (%) (Auto) 0.0, Basophils (%) ( Auto) 0.8, Prothrombin Time 11.5, Prothromb Time International Ratio 1.1, Activated Partial Thromboplast Time 34H, Sodium Level 132L, Potassium Level 4.8 , Chloride Level 92L, Carbon Dioxide Level 29, Anion Gap 11, Blood Urea Nitrogen 51H, Creatinine 8.1H, Estimat Glomerular Filtration Rate 6.7, Glucose Level 186H, Calcium Level 9.1, Total Bilirubin 0.4, Aspartate Amino Transf (AST/ SGOT) 12L, Alanine Aminotransferase (ALT/SGPT) 13, Alkaline Phosphatase 86, Total Protein 6.7, Albumin 2.6L, Globulin 4.1, Albumin/Globulin Ratio 0.6L 11/12/18 12:13: Body Fluid Source [Pending], Body Fluid Volume [Pending], Body Fluid Appearance [Pending], Body Fluid pH [Pending], Body Fluid RBC [Pending], Body Fluid Total Nucleated Cells [Pending], Body Fluid Polynuclear WBCs (%) [Pending], Body Fluid Mononuclear WBCs (%) [Pending], Body Fluid Mesothelial Cells (%) [Pending] , Body Fluid Glucose [Pending], Body Fluid Total Protein [Pending], Body Fluid Albumin [Pending], Body Fluid Lactate Dehydrogenase [Pending], Body Fluid Amylase [Pending] Height (Feet): 5 Height (Inches): 10.00 Weight (Pounds): 200 General Appearance: no apparent distress EENT: other - trach Cardiovascular: normal rate Respiratory/Chest: decreased breath sounds Abdomen: soft Objective no other change Nakul Stevens MD Nov 12, 2018 14:29
--- NOTE | 2018-11-12 15:11 | Pulmonology Progress Note ---
Assessment/Plan Assessment/Plan 1. No SVC syndrome on CTA 2. End-stage renal disease, on dialysis, status post multiple upper extremity vascular procedures. 3. Coronary artery bypass surgery. 4. Diabetes. 5. Dysphonia, tongue swelling; s/p trach 6. Resp failure, hypercapneic PLAN: looks alert trach/vent - wean as tolerated R effusion 1.5 liters removed, pH 8 fluid cell count does not indicate infection; chemistry pdg tolerates feeds reviewed ENT notes disc w RN, son Subjective ROS Limited/Unobtainable: Yes Allergies: Coded Allergies: CEPHALEXIN (Unverified Allergy, Unknown, 02/24/14) SULFAMETHOXAZOLE (Unverified Allergy, Unknown, 02/24/14) TRIMETHOPRIM (Unverified Allergy, Unknown, 02/24/14) Objective Last 24 Hour Vital Signs Date Time Temp Pulse Resp B/P (MAP) Pulse Ox O2 Delivery O2 Flow Rate FiO2 11/12/18 14:54 83 16 40 11/12/18 13:12 89 16 40 11/12/18 12:00 Mechanical Ventilator 11/12/18 12:00 98.6 87 20 117/54 (75) 98 11/12/18 12:00 40 11/12/18 11:49 86 11/12/18 11:21 84 22 40 11/12/18 09:44 87 136/92 11/12/18 09:12 87 21 40 11/12/18 08:00 98.2 91 16 136/92 (107) 98 11/12/18 08:00 Mechanical Ventilator 11/12/18 08:00 40 11/12/18 07:52 90 11/12/18 07:40 89 19 40 11/12/18 05:25 84 20 40 40 11/12/18 04:00 98.2 97 16 149/78 (101) 97 11/12/18 04:00 40 11/12/18 04:00 Mechanical Ventilator 11/12/18 04:00 88 11/12/18 03:08 86 19 40 40 11/12/18 00:41 90 18 40 40 11/12/18 00:15 97.2 90 19 159/83 (108) 100 11/12/18 00:00 89 11/12/18 00:00 Mechanical Ventilator 11/12/18 00:00 97.2 90 20 179/92 (121) 100 11/11/18 23:05 88 18 40 40 11/11/18 21:05 87 153/97 11/11/18 21:00 89 18 40 40 11/11/18 20:00 85 11/11/18 20:00 40 11/11/18 20:00 Mechanical Ventilator 11/11/18 20:00 98.2 87 18 153/97 (115) 100 11/11/18 19:28 90 18 40 40 11/11/18 16:30 88 16 40 11/11/18 16:00 40 11/11/18 16:00 Mechanical Ventilator 11/11/18 16:00 85 11/11/18 16:00 98.2 84 16 112/47 (68) 100 Intake and Output 11/11/18 11/12/18 19:00 07:00 Intake Total 594 ml 504 ml Output Total 2000 ml Balance -1406 ml 504 ml Free Water 90 ml Tube Feeding 504 ml 504 ml Output Urine Total 0 ml Hemodialysis UF 2000 ml Objective trach General Appearance: no acute distress Respiratory/Chest: lungs clear Laboratory Tests 11/12/18 04:00: White Blood Count 8.4, Red Blood Count 5.09, Hemoglobin 12.9L, Hematocrit 42.3, Mean Corpuscular Volume 83, Mean Corpuscular Hemoglobin 25.3L, Mean Corpuscular Hemoglobin Concent 30.5L, Red Cell Distribution Width 17.8H, Platelet Count 159 , Mean Platelet Volume 7.6, Neutrophils (%) (Auto) 79.6H, Lymphocytes (%) (Auto ) 12.5L, Monocytes (%) (Auto) 7.2, Eosinophils (%) (Auto) 0.0, Basophils (%) ( Auto) 0.8, Prothrombin Time 11.5, Prothromb Time International Ratio 1.1, Activated Partial Thromboplast Time 34H, Sodium Level 132L, Potassium Level 4.8 , Chloride Level 92L, Carbon Dioxide Level 29, Anion Gap 11, Blood Urea Nitrogen 51H, Creatinine 8.1H, Estimat Glomerular Filtration Rate 6.7, Glucose Level 186H, Calcium Level 9.1, Total Bilirubin 0.4, Aspartate Amino Transf (AST/ SGOT) 12L, Alanine Aminotransferase (ALT/SGPT) 13, Alkaline Phosphatase 86, Total Protein 6.7, Albumin 2.6L, Globulin 4.1, Albumin/Globulin Ratio 0.6L 11/12/18 12:13: Body Fluid Source Thoracentesis, Body Fluid Volume 24, Body Fluid Appearance Clear, Body Fluid pH 8.0, Body Fluid RBC 244, Body Fluid Total Nucleated Cells 87, Body Fluid Polynuclear WBCs (%) 10, Body Fluid Mononuclear WBCs (%) 82, Body Fluid Mesothelial Cells (%) 8, Body Fluid Glucose [Pending], Body Fluid Total Protein [Pending], Body Fluid Albumin [Pending], Body Fluid Lactate Dehydrogenase [Pending], Body Fluid Amylase [Pending] Current Medications Medications (Trade) Dose Ordered Sig/Aleks Route PRN Reason Start Time Stop Time Status Last Admin Dose Admin Acetaminophen (Tylenol) 650 mg Q4H PRN ORAL Mild Pain/Temp > 100.5 11/11/18 14:45 11/30/18 22:44 Aspirin (Ecotrin) 81 mg DAILY ORAL 11/12/18 09:00 12/03/18 08:59 Atorvastatin Calcium (Lipitor) 10 mg BEDTIME ORAL 11/11/18 21:00 12/02/18 20:59 11/11/18 21:06 Carvedilol (Coreg) 6.25 mg EVERY 12 HOURS ORAL 11/11/18 21:00 12/01/18 08:59 11/12/18 09:44 Chlorhexidine Gluconate (Glo-Hex 2%) 1 applic DAILY@2000 TOPIC 11/11/18 20:00 12/08/18 19:59 11/11/18 20:19 Dextrose (Dextrose 50%) 25 ml Q30M PRN IV Hypoglycemia 11/11/18 14:45 11/30/18 22:44 Dextrose (Dextrose 50%) 50 ml Q30M PRN IV Hypoglycemia 11/11/18 14:45 11/30/18 22:44 Docusate Sodium (Colace) 100 mg TIDPRN PRN ORAL Constipation 11/11/18 15:30 12/11/18 15:29 Hydralazine HCl (Apresoline) 10 mg Q6H PRN IV For High Blood Pressure 11/11/18 14:39 12/11/18 14:38 Insulin Aspart (NovoLOG) EVERY 6 HOURS SUBQ 11/12/18 12:00 12/01/18 06:29 Lansoprazole (Prevacid) 30 mg BID NG 11/11/18 18:00 4/26/19 17:59 11/12/18 09:44 Morphine Sulfate (Morphine Sulfate) 4 mg Q4H PRN IVP for moderate pain 11/11/18 14:39 11/18/18 14:38 11/12/18 09:43 Nicotine (Nicoderm) 1 patch Q24H TDERMAL 11/11/18 22:15 12/01/18 22:14 11/11/18 22:22 Nystatin (Nystatin) 5 ml QID ORAL 11/11/18 18:00 11/17/18 17:59 11/12/18 12:57 Olanzapine (ZyPREXA) 2.5 mg BEDTIME ORAL 11/12/18 21:00 12/12/18 20:59 Polyethylene Glycol (Miralax) 17 gm DAILYPRN PRN ORAL Constipation 11/11/18 15:30 12/11/18 15:29 11/12/18 06:04 Sevelamer Carbonate (Renvela) 1,600 mg THREE TIMES A DAY NG 11/11/18 18:00 12/11/18 08:59 11/12/18 12:57 Tacrolimus (Prograf) 2 mg MoWeFr@0000,1200 ORAL 11/13/18 00:00 12/02/18 00:00 Tacrolimus (Prograf) 2 mg SuTuThSa@0900,2100 ORAL 11/12/18 09:00 12/01/18 20:59 11/12/18 09:44 Saroj Mendoza MD Nov 12, 2018 15:11
--- NOTE | 2018-11-12 16:45 | Diagnostic Imaging Report ---
Indication: Dyspnea Comparison: 11/08/2018 A single view chest radiograph was obtained. Findings: Mild to moderate interstitial edema again demonstrated with marginal improvement. There is evidence of a right pleural effusion. Cardiomegaly is stable. A tracheostomy was placed. IMPRESSION: Status post tracheostomy. No pneumothorax. CHF marginally improved Right pleural effusion
--- NOTE | 2018-11-12 17:44 | Infectious Diseases Prog Note ---
Assessment/Plan Problems: (1) Ground glass opacity present on imaging of lung Assessment & Plan: with no evedence of atypical organisms and negative fungal serology( crypt, cocci, histo, and aspergillosis ) and viral PCR for CMV and herpes . 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 bone scan ruled out osteomyelitis of the heel . will treat with vancomycin with HD for two weeks total . follow up with supplies packer (3) DM (diabetes mellitus) Assessment & Plan: recommend tight glycemic control to keep blood glucose between 100-140 (4) CHF (congestive heart failure) Assessment & Plan: on HD , renal is following, monitor daily weight (5) Encephalopathy acute Assessment & Plan: suspect metabolic, with high urea level, waxing and waning . (6) Severe tongue swelling Assessment & Plan: improving initially after steroids , but got worse later, with respiratory compromise , had tracheostomy to protect his airway since respiratory status worsened . pulmonary is following (7) Pleural effusion Assessment & Plan: massive on the right, S/P thoracentesis with removal of 1.55 cc of clear fluids, will send for gram stain, culture, fungal and AFB, cytology and pathology Subjective Constitutional: Reports: no symptoms HEENT: Reports: no symptoms Respiratory: Reports: dry cough Breasts: Reports: no symptoms Cardiovascular: Reports: no symptoms Gastrointestinal/Abdominal: Reports: no symptoms Genitourinary: Reports: no symptoms Neurologic: Reports: weakness Psychiatric: Reports: no symptoms Skin: Reports: no symptoms Endocrine: Reports: no symptoms Hematologic: Reports: no symptoms Musculoskeletal: Reports: no symptoms Allergies: Coded Allergies: CEPHALEXIN (Unverified Allergy, Unknown, 02/24/14) SULFAMETHOXAZOLE (Unverified Allergy, Unknown, 02/24/14) TRIMETHOPRIM (Unverified Allergy, Unknown, 02/24/14) Subjective he was feeling ok after he was trached emergently due to worsening respiratory failure, feels better , repeated CXR no significant changes , awake and responsive, no fever or chills, no cough or phlegm , no SOB . Objective Vital Signs Last 24 Hour Vital Signs Date Time Temp Pulse Resp B/P (MAP) Pulse Ox O2 Delivery O2 Flow Rate FiO2 11/12/18 17:20 81 16 40 11/12/18 16:00 40 11/12/18 16:00 Mechanical Ventilator 11/12/18 16:00 99.1 84 16 126/61 (82) 99 11/12/18 15:14 84 11/12/18 14:54 83 16 40 11/12/18 13:12 89 16 40 11/12/18 12:00 Mechanical Ventilator 11/12/18 12:00 98.6 87 20 117/54 (75) 98 11/12/18 12:00 40 11/12/18 11:49 86 11/12/18 11:21 84 22 40 11/12/18 09:44 87 136/92 11/12/18 09:12 87 21 40 11/12/18 08:00 98.2 91 16 136/92 (107) 98 11/12/18 08:00 Mechanical Ventilator 11/12/18 08:00 40 11/12/18 07:52 90 11/12/18 07:40 89 19 40 11/12/18 05:25 84 20 40 40 11/12/18 04:00 98.2 97 16 149/78 (101) 97 11/12/18 04:00 40 11/12/18 04:00 Mechanical Ventilator 11/12/18 04:00 88 11/12/18 03:08 86 19 40 40 11/12/18 00:41 90 18 40 40 11/12/18 00:15 97.2 90 19 159/83 (108) 100 11/12/18 00:00 89 11/12/18 00:00 Mechanical Ventilator 11/12/18 00:00 97.2 90 20 179/92 (121) 100 11/11/18 23:05 88 18 40 40 11/11/18 21:05 87 153/97 11/11/18 21:00 89 18 40 40 11/11/18 20:00 85 11/11/18 20:00 40 11/11/18 20:00 Mechanical Ventilator 11/11/18 20:00 98.2 87 18 153/97 (115) 100 11/11/18 19:28 90 18 40 40 Height (Feet): 5 Height (Inches): 10.00 Weight (Pounds): 200 General Appearance: WD/WN, no acute distress HEENT: normocephalic, atraumatic, anicteric, mucous membranes moist, PERRL, pharynx normal, supple, no JVD, status post trach Respiratory/Chest: chest wall non-tender, lungs clear, normal breath sounds, no respiratory distress, no accessory muscle use Cardiovascular: normal peripheral pulses, normal rate, regular rhythm, no gallop/murmur, no JVD Abdomen: normal bowel sounds, soft, non tender, no organomegaly, non distended , no mass, no scars Genitourinary: normal external genitalia Extremities: no cyanosis, no clubbing Skin: no rash, no lesions, ulcers - on the right heel 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: alert, responsive Lymphatic: no neck adenopathy, no groin adenopathy Musculoskeletal: normal muscle bulk, no effusion Laboratory Tests Test 11/12/18 04:00 11/12/18 12:13 White Blood Count 8.4 K/UL (4.8-10.8) Red Blood Count 5.09 M/UL (4.70-6.10) Hemoglobin 12.9 G/DL (14.2-18.0) L Hematocrit 42.3 % (42.0-52.0) Mean Corpuscular Volume 83 FL (80-99) Mean Corpuscular Hemoglobin 25.3 PG (27.0-31.0) L Mean Corpuscular Hemoglobin Concent 30.5 G/DL (32.0-36.0) L Red Cell Distribution Width 17.8 % (11.6-14.8) H Platelet Count 159 K/UL (150-450) Mean Platelet Volume 7.6 FL (6.5-10.1) Neutrophils (%) (Auto) 79.6 % (45.0-75.0) H Lymphocytes (%) (Auto) 12.5 % (20.0-45.0) L Monocytes (%) (Auto) 7.2 % (1.0-10.0) Eosinophils (%) (Auto) 0.0 % (0.0-3.0) Basophils (%) (Auto) 0.8 % (0.0-2.0) Prothrombin Time 11.5 SEC (9.30-11.50) Prothromb Time International Ratio 1.1 (0.9-1.1) Activated Partial Thromboplast Time 34 SEC (23-33) H Sodium Level 132 MMOL/L (136-145) L Potassium Level 4.8 MMOL/L (3.5-5.1) Chloride Level 92 MMOL/L (98-107) L Carbon Dioxide Level 29 MMOL/L (21-32) Anion Gap 11 mmol/L (5-15) Blood Urea Nitrogen 51 mg/dL (7-18) H Creatinine 8.1 MG/DL (0.55-1.30) H Estimat Glomerular Filtration Rate 6.7 mL/min (>60) Glucose Level 186 MG/DL (74-106) H Calcium Level 9.1 MG/DL (8.5-10.1) Phosphorus Level 5.7 MG/DL (2.5-4.9) H Total Bilirubin 0.4 MG/DL (0.2-1.0) Aspartate Amino Transf (AST/SGOT) 12 U/L (15-37) L Alanine Aminotransferase (ALT/SGPT) 13 U/L (12-78) Alkaline Phosphatase 86 U/L (46-116) Total Protein 6.7 G/DL (6.4-8.2) Albumin 2.6 G/DL (3.4-5.0) L Globulin 4.1 g/dL Albumin/Globulin Ratio 0.6 (1.0-2.7) L Body Fluid Source Thoracentesis Body Fluid Volume 24 mL Body Fluid Appearance Clear (Clear) Body Fluid pH 8.0 Body Fluid RBC 244 /CUMM Body Fluid Total Nucleated Cells 87 /CUMM Body Fluid Polynuclear WBCs (%) 10 % Body Fluid Mononuclear WBCs (%) 82 % Body Fluid Mesothelial Cells (%) 8 % Body Fluid Glucose Pending Body Fluid Total Protein Pending Body Fluid Albumin Pending Body Fluid Lactate Dehydrogenase Pending Body Fluid Amylase Pending Current Medications Medications (Trade) Dose Ordered Sig/Aleks Route PRN Reason Start Time Stop Time Status Last Admin Dose Admin Acetaminophen (Tylenol) 650 mg Q4H PRN ORAL Mild Pain/Temp > 100.5 11/11/18 14:45 11/30/18 22:44 Acetaminophen/ Hydrocodone Bitart ([place] 5/325) 1 tab Q4H PRN NG Moderate Pain (Pain Scale 4-6) 11/12/18 15:15 11/19/18 15:14 Aspirin (Ecotrin) 81 mg DAILY ORAL 11/12/18 09:00 12/03/18 08:59 Atorvastatin Calcium (Lipitor) 10 mg BEDTIME ORAL 11/11/18 21:00 12/02/18 20:59 11/11/18 21:06 Carvedilol (Coreg) 6.25 mg EVERY 12 HOURS ORAL 11/11/18 21:00 12/01/18 08:59 11/12/18 09:44 Chlorhexidine Gluconate (Glo-Hex 2%) 1 applic DAILY@2000 TOPIC 11/11/18 20:00 12/08/18 19:59 11/11/18 20:19 Dextrose (Dextrose 50%) 25 ml Q30M PRN IV Hypoglycemia 11/11/18 14:45 11/30/18 22:44 Dextrose (Dextrose 50%) 50 ml Q30M PRN IV Hypoglycemia 11/11/18 14:45 11/30/18 22:44 Docusate Sodium (Colace) 100 mg TIDPRN PRN ORAL Constipation 11/11/18 15:30 12/11/18 15:29 Hydralazine HCl (Apresoline) 10 mg Q6H PRN IV For High Blood Pressure 11/11/18 14:39 12/11/18 14:38 Insulin Aspart (NovoLOG) EVERY 6 HOURS SUBQ 11/12/18 12:00 12/01/18 06:29 Lansoprazole (Prevacid) 30 mg BID NG 11/11/18 18:00 12/11/18 17:59 11/12/18 09:44 Nicotine (Nicoderm) 1 patch Q24H TDERMAL 11/11/18 22:15 12/01/18 22:14 11/11/18 22:22 Nystatin (Nystatin) 5 ml QID ORAL 11/11/18 18:00 11/17/18 17:59 11/12/18 12:57 Olanzapine (ZyPREXA) 2.5 mg BEDTIME ORAL 11/12/18 21:00 12/12/18 20:59 Polyethylene Glycol (Miralax) 17 gm DAILYPRN PRN ORAL Constipation 11/11/18 15:30 12/11/18 15:29 11/12/18 06:04 Sevelamer Carbonate (Renvela) 1,600 mg THREE TIMES A DAY NG 11/11/18 18:00 12/11/18 08:59 11/12/18 12:57 Tacrolimus (Prograf) 2 mg MoWeFr@0000,1200 ORAL 11/13/18 00:00 12/02/18 00:00 Tacrolimus (Prograf) 2 mg SuTuThSa@0900,2100 ORAL 11/12/18 09:00 12/01/18 20:59 11/12/18 09:44 Francois Landis M.D. Nov 12, 2018 17:44
--- NOTE | 2018-11-12 17:45 | Operative Note - Dictated ---
DATE OF OPERATION: 11/12/2018 SURGEON: Alex Man M.D. ASSOCIATE MERCHANT: None. INDICATION FOR PROCEDURE: The patient was emergently trached on Friday four days ago. I was looking to see if his swelling is going down and we can start the process of decannulating him. PREOPERATIVE DIAGNOSIS: Airway obstruction. POSTOPERATIVE DIAGNOSIS: Airway obstruction. FINDINGS: Unable to handle secretions. PROCEDURE: Fiberoptic laryngoscopy. The patient agreed with procedure. A time-out was performed. Scope was passed through the left nostril without any difficulty, passing it through the nose down to the oropharynx. I asked the patient to swallow. He was unable to do it. I asked him to cough, he was unable to do it or unwilling, I am not sure. I understand it is uncomfortable. He has a trach tube in place and a nasogastric tube. Scope was removed. EBL: Zero. COMPLICATIONS: None . DRAINS: None. Future plan is that next week, I will come back and take another look but in the meantime I have asked speech therapy to speak with him about encouraging him to swallow his secretions and I did explain to him this would be the first step towards getting the trach tube out. Alex Man M.D. DR: Ifeanyi JOB#: [id number] CC: MARIA VICTORIA
[2018-11-12] MEDS ORDERED: Acetaminophen 650mg/20.3ml ORAL PRN (18:48)
[2018-11-12] MEDS ORDERED: Miralax 17gm pkt NG PRN (19:00)
[2018-11-12] MEDS ORDERED: Docusate 100mg/10ml Liq NG SCH (19:30)
[2018-11-12] MEDS: Dyna-Hex 2% Top Sol 2oz TOPIC SCH (20:20)
[2018-11-12] MEDS: Carvedilol 6.25mg Tab NG SCH (20:22)
[2018-11-12] MEDS: Docusate 100mg/10ml Liq NG SCH (20:27)
[2018-11-12] MEDS ORDERED: OLANZapine 2.5mg tab NG SCH (21:00)
[2018-11-13] VITALS: BP 133/85
[2018-11-13] MEDS: NovoLOG Insulin Flexpen SUBQ SCH ×4 (00:27→17:34)
[2018-11-13 04:00] VITALS: BP 101/48
--- NOTE | 2018-11-13 04:00 | Progress Note ---
DATE: 11/12/2018 NOTE: POOR AUDIO SUBJECTIVE: This is a 68-year-old male, status post trach, more awake, alert, refusing some treatment. OBJECTIVE: VITAL SIGNS: Blood pressure 130/70, pulse , respirations 18, no fever. HEENT: NAD. CHEST: Bilaterally few crackles. CARDIOVASCULAR: Regular rhythm. ABDOMEN: Soft. EXTREMITIES: CCE. NEUROLOGIC: Generalized weakness. GENITOURINARY: Deferred. LABORATORY DATA: No labs are available. The patient refused. ASSESSMENT AND PLAN: 1. Angioedema. 2. Acute respiratory distress. 3. Fluid overload. 4. CHF. 5. Diabetes. 6. . PLAN: We will continue protocol. Continue antibiotics and bronchodilator treatments. The patient has been eating by mouth. We will continue current treatment. Jamari Carter M.D. DR: CHICHI JOB#: [id number] CC:
[2018-11-13] MEDS: Docusate 100mg/10ml Liq NG SCH ×3 (05:30→22:08)
[2018-11-13 05:31] LABS: BASOPHILS % (AUTO) 0.6 % (0.0-2.0); EOSINOPHILS % (AUTO) 0.1 % (0.0-3.0); HEMATOCRIT 40.6 % (42.0-52.0); HEMOGLOBIN 12.4 G/DL (14.2-18.0); LYMPHOCYTES % (AUTO) 16.3 % (20.0-45.0); MEAN CORPUSCULAR VOLUME 81 FL (80-99); MONOCYTES % (AUTO) 6.9 % (1.0-10.0); NEUTROPHILS % (AUTO) 76.1 % (45.0-75.0); PLATELET COUNT 163 K/UL (150-450); RED BLOOD COUNT 5.01 M/UL (4.70-6.10); RED CELL DISTRIBUTION WIDTH 17.2 % (11.6-14.8); WHITE BLOOD COUNT 8.5 K/UL (4.8-10.8)
[2018-11-13] MEDS: HYDROcodone/Acetamin 5/325 tab NG PRN (05:31)
[2018-11-13 05:46] LABS: ANION GAP 9 mmol/L (5-15); BLOOD UREA NITROGEN 63 mg/dL (7-18); CALCIUM 9.1 MG/DL (8.5-10.1); CARBON DIOXIDE 31 MMOL/L (21-32); CHLORIDE 94 MMOL/L (98-107); CREATININE 9.2 MG/DL (0.55-1.30); SODIUM 134 MMOL/L (136-145)
[2018-11-13 08:00] VITALS: BP 128/42
[2018-11-13] MEDS: Nystatin Susp 500,000 units/5ml ORAL SCH ×4 (09:23→22:08)
[2018-11-13] MEDS: Aspirin Baby 81mg NG SCH (09:23)
[2018-11-13] MEDS: Carvedilol 6.25mg Tab NG SCH ×2 (09:24→22:08)
[2018-11-13] MEDS: Renvela 800mg Pkt NG SCH ×3 (09:24→18:09)
--- NOTE | 2018-11-13 11:09 | Podiatric Progress Note ---
Assessment/Plan Patient Gregg Restrepo is a 68 year old male who was admitted on Oct 31, 2018 at 19:13 with Assessment/Plan A: R heel ulceration, necrotic, no underlying OM infection. Hep C , s/p Liver transplant CAD, s/p CABG Cellulitis of ABD DM Resp failure, P: - Pt seen and evaluated. - Discuss findings with patient. - labs and chart reviewed. - Daily wound care order submitted, rec application santyl. - Cont offloading R heel. - Cont IV ABx. - Bone scan negative for acute OM. - Pt may required surgical intervention pending medical and vasc clearance. - Podiatry will con to monitor. Subjective Reason for consult S: Pt seen bedside, on vent, recent worsening resp failure. Consulted for R heel ulcer, stable. Unable to obtain full HPI from patient. Allergies: Coded Allergies: CEPHALEXIN (Unverified Allergy, Unknown, 02/24/14) SULFAMETHOXAZOLE (Unverified Allergy, Unknown, 02/24/14) TRIMETHOPRIM (Unverified Allergy, Unknown, 02/24/14) Subjective S: Pt seen bedside, on vent, recent worsening resp failure. Consulted for R heel ulcer, stable. Unable to obtain full HPI from patient. Objective Exam Last 24 Hour Vital Signs Date Time Temp Pulse Resp B/P (MAP) Pulse Ox O2 Delivery O2 Flow Rate FiO2 11/13/18 11:05 84 19 40 11/13/18 09:24 80 128/42 11/13/18 09:10 81 19 40 11/13/18 08:00 Mechanical Ventilator 11/13/18 08:00 97.9 80 20 128/42 (70) 99 11/13/18 08:00 40 11/13/18 07:54 80 11/13/18 07:26 84 19 40 11/13/18 05:20 82 17 40 11/13/18 04:00 78 11/13/18 04:00 Mechanical Ventilator 11/13/18 04:00 40 11/13/18 04:00 98.4 81 20 101/48 (65) 100 11/13/18 03:28 82 16 40 11/13/18 02:17 76 17 40 11/13/18 01:10 86 16 40 11/13/18 00:00 83 11/13/18 00:00 97.7 82 16 133/85 (101) 98 11/13/18 00:00 Mechanical Ventilator 11/12/18 22:47 85 17 40 11/12/18 21:00 81 16 40 11/12/18 20:22 81 126/61 11/12/18 20:05 80 16 40 11/12/18 20:00 99.1 101 20 109/65 (80) 99 11/12/18 20:00 98 11/12/18 20:00 40 11/12/18 20:00 Mechanical Ventilator 11/12/18 17:20 81 16 40 11/12/18 16:00 40 11/12/18 16:00 Mechanical Ventilator 11/12/18 16:00 99.1 84 16 126/61 (82) 99 11/12/18 15:14 84 11/12/18 14:54 83 16 40 11/12/18 13:12 89 16 40 11/12/18 12:00 Mechanical Ventilator 11/12/18 12:00 98.6 87 20 117/54 (75) 98 11/12/18 12:00 40 11/12/18 11:49 86 11/12/18 11:21 84 22 40 Laboratory Tests Test 11/12/18 12:13 11/13/18 04:00 Body Fluid Source Thoracentesis Body Fluid Volume 24 mL Body Fluid Appearance Clear (Clear) Body Fluid pH 8.0 Body Fluid RBC 244 /CUMM Body Fluid Total Nucleated Cells 87 /CUMM Body Fluid Polynuclear WBCs (%) 10 % Body Fluid Mononuclear WBCs (%) 82 % Body Fluid Mesothelial Cells (%) 8 % Body Fluid Glucose Pending Body Fluid Total Protein Pending Body Fluid Albumin Pending Body Fluid Lactate Dehydrogenase Pending Body Fluid Amylase Pending White Blood Count 8.5 K/UL (4.8-10.8) Red Blood Count 5.01 M/UL (4.70-6.10) Hemoglobin 12.4 G/DL (14.2-18.0) L Hematocrit 40.6 % (42.0-52.0) L Mean Corpuscular Volume 81 FL (80-99) Mean Corpuscular Hemoglobin 24.8 PG (27.0-31.0) L Mean Corpuscular Hemoglobin Concent 30.6 G/DL (32.0-36.0) L Red Cell Distribution Width 17.2 % (11.6-14.8) H Platelet Count 163 K/UL (150-450) Mean Platelet Volume 9.2 FL (6.5-10.1) Neutrophils (%) (Auto) 76.1 % (45.0-75.0) H Lymphocytes (%) (Auto) 16.3 % (20.0-45.0) L Monocytes (%) (Auto) 6.9 % (1.0-10.0) Eosinophils (%) (Auto) 0.1 % (0.0-3.0) Basophils (%) (Auto) 0.6 % (0.0-2.0) Sodium Level 134 MMOL/L (136-145) L Potassium Level 5.0 MMOL/L (3.5-5.1) Chloride Level 94 MMOL/L (98-107) L Carbon Dioxide Level 31 MMOL/L (21-32) Anion Gap 9 mmol/L (5-15) Blood Urea Nitrogen 63 mg/dL (7-18) H Creatinine 9.2 MG/DL (0.55-1.30) H Estimat Glomerular Filtration Rate 5.8 mL/min (>60) Glucose Level 95 MG/DL (74-106) Calcium Level 9.1 MG/DL (8.5-10.1) Microbiology Date/Time Source Procedure Growth Status 11/07/18 06:20 Blood Blood Culture - Final NO GROWTH AFTER 5 DAYS Complete 11/12/18 12:13 Pleural Fluid Gram Stain - Final Resulted 11/12/18 12:13 Pleural Fluid Body Fluid Culture - Preliminary NO GROWTH Resulted 10/31/18 20:39 Wound Gram Stain - Final Complete 10/31/18 20:39 Wound Culture - Final Staphylococcus Aureus - Mrsa Complete 10/31/18 21:00 Nasal Nares MRSA Culture - Final Staphylococcus Aureus - Mrsa Complete 10/31/18 21:00 Rectum VRE Culture - Final NO VANCOMYCIN RESISTANT ENTEROCOCCUS ... Complete 10/31/18 21:00 Rectum - Final NO CARBAPENEM-RESISTANT ENTEROBACTERI... Complete Dermatological Dermatological Narrative Objective Narrative Foused B/L LE: Right foot: pulses +1/4 DP/PT , ulceration noted to plantar posterior heel, approx 2.5 cm x 2.5 cm x UTD. Wound base is necrotic, larry-wound margins are WNL (+) Pain upon palpation. No active purulent drainage is noted. No increase in temp differential, minimal edema and erythema is noted. left foot: distal forefoot distal rash is noted, +1/4 DP/PT . No open ulceration or wounds are noted. Angel Parada DPM Nov 13, 2018 11:09
--- NOTE | 2018-11-13 11:10 | GI Progress Note ---
Assessment/Plan Problems: (1) Foot ulcer ICD Codes: L97.509 - Non-pressure chronic ulcer of other part of unspecified foot with unspecified severity SNOMED: 50607139 Qualifiers: Qualified Codes: L97.511 - Non-pressure chronic ulcer of other part of right foot limited to breakdown of skin (2) DM (diabetes mellitus) ICD Codes: E11.9 - Type 2 diabetes mellitus without complications SNOMED: 04859073 (3) Transplant ICD Codes: Z94.9 - Transplanted organ and tissue status, unspecified SNOMED: 106975809 Status: unchanged Status Narrative Discussed with Dr. Escalera Assessment/Plan History of liver transplant, currently on Prograf constipation Patient now in ICU, status post emergency tracheostomy ST evaluation unable to be performed, patient noncompliant cont tacrolimus cont NGTFs, await ST reevaluation >> PEG if necessary prn transfusions ppi zofran prn Bowel regimen Trend LFTs follow labs The patient was seen and examined at bedside and all new and available data was reviewed in the patients chart. I agree with the above findings, impression and plan. (Patient seen earlier today. Signature stamp does not reflect patient encounter time.). - Jorge Escalera MD Subjective Subjective Limited Objective Last 24 Hour Vital Signs Date Time Temp Pulse Resp B/P (MAP) Pulse Ox O2 Delivery O2 Flow Rate FiO2 11/13/18 11:05 84 19 40 11/13/18 09:24 80 128/42 11/13/18 09:10 81 19 40 11/13/18 08:00 Mechanical Ventilator 11/13/18 08:00 97.9 80 20 128/42 (70) 99 11/13/18 08:00 40 11/13/18 07:54 80 11/13/18 07:26 84 19 40 11/13/18 05:20 82 17 40 11/13/18 04:00 78 11/13/18 04:00 Mechanical Ventilator 11/13/18 04:00 40 11/13/18 04:00 98.4 81 20 101/48 (65) 100 11/13/18 03:28 82 16 40 11/13/18 02:17 76 17 40 11/13/18 01:10 86 16 40 11/13/18 00:00 83 11/13/18 00:00 97.7 82 16 133/85 (101) 98 11/13/18 00:00 Mechanical Ventilator 11/12/18 22:47 85 17 40 11/12/18 21:00 81 16 40 11/12/18 20:22 81 126/61 11/12/18 20:05 80 16 40 11/12/18 20:00 99.1 101 20 109/65 (80) 99 11/12/18 20:00 98 11/12/18 20:00 40 11/12/18 20:00 Mechanical Ventilator 11/12/18 17:20 81 16 40 11/12/18 16:00 40 11/12/18 16:00 Mechanical Ventilator 11/12/18 16:00 99.1 84 16 126/61 (82) 99 11/12/18 15:14 84 11/12/18 14:54 83 16 40 11/12/18 13:12 89 16 40 11/12/18 12:00 Mechanical Ventilator 11/12/18 12:00 98.6 87 20 117/54 (75) 98 11/12/18 12:00 40 11/12/18 11:49 86 11/12/18 11:21 84 22 40 Intake and Output 11/12/18 11/13/18 19:00 07:00 Intake Total 684 ml 546 ml Output Total 1550 ml Balance -866 ml 546 ml Tube Feeding 504 ml 546 ml Other 180 ml Other 1550 ml Laboratory Tests Test 11/12/18 12:13 11/13/18 04:00 Body Fluid Source Thoracentesis Body Fluid Volume 24 mL Body Fluid Appearance Clear (Clear) Body Fluid pH 8.0 Body Fluid RBC 244 /CUMM Body Fluid Total Nucleated Cells 87 /CUMM Body Fluid Polynuclear WBCs (%) 10 % Body Fluid Mononuclear WBCs (%) 82 % Body Fluid Mesothelial Cells (%) 8 % Body Fluid Glucose Pending Body Fluid Total Protein Pending Body Fluid Albumin Pending Body Fluid Lactate Dehydrogenase Pending Body Fluid Amylase Pending White Blood Count 8.5 K/UL (4.8-10.8) Red Blood Count 5.01 M/UL (4.70-6.10) Hemoglobin 12.4 G/DL (14.2-18.0) L Hematocrit 40.6 % (42.0-52.0) L Mean Corpuscular Volume 81 FL (80-99) Mean Corpuscular Hemoglobin 24.8 PG (27.0-31.0) L Mean Corpuscular Hemoglobin Concent 30.6 G/DL (32.0-36.0) L Red Cell Distribution Width 17.2 % (11.6-14.8) H Platelet Count 163 K/UL (150-450) Mean Platelet Volume 9.2 FL (6.5-10.1) Neutrophils (%) (Auto) 76.1 % (45.0-75.0) H Lymphocytes (%) (Auto) 16.3 % (20.0-45.0) L Monocytes (%) (Auto) 6.9 % (1.0-10.0) Eosinophils (%) (Auto) 0.1 % (0.0-3.0) Basophils (%) (Auto) 0.6 % (0.0-2.0) Sodium Level 134 MMOL/L (136-145) L Potassium Level 5.0 MMOL/L (3.5-5.1) Chloride Level 94 MMOL/L (98-107) L Carbon Dioxide Level 31 MMOL/L (21-32) Anion Gap 9 mmol/L (5-15) Blood Urea Nitrogen 63 mg/dL (7-18) H Creatinine 9.2 MG/DL (0.55-1.30) H Estimat Glomerular Filtration Rate 5.8 mL/min (>60) Glucose Level 95 MG/DL (74-106) Calcium Level 9.1 MG/DL (8.5-10.1) Microbiology Date/Time Source Procedure Growth Status 11/12/18 12:13 Pleural Fluid Gram Stain - Final Resulted 11/12/18 12:13 Pleural Fluid Body Fluid Culture - Preliminary NO GROWTH Resulted Height (Feet): 5 Height (Inches): 10.00 Weight (Pounds): 200 General Appearance: WD/WN, no apparent distress, alert Cardiovascular: normal rate Respiratory/Chest: normal breath sounds, no respiratory distress Abdominal Exam: normal bowel sounds, non tender, soft, other - NGT Extremities: normal range of motion, non-tender Kelvin Briggs TOOLMAKER Nov 13, 2018 11:10
[2018-11-13 12:00] VITALS: BP 137/69
--- NOTE | 2018-11-13 13:52 | Pulmonology Progress Note ---
Assessment/Plan Assessment/Plan 1. No SVC syndrome on CTA 2. End-stage renal disease, on dialysis, status post multiple upper extremity vascular procedures. 3. Coronary artery bypass surgery. 4. Diabetes. 5. Dysphonia, tongue swelling; s/p trach 6. Resp failure, hypercapneic PLAN: weaning parameters better trach/vent - wean as tolerated tolerates feeds disc w RN Subjective Gastrointestinal/Abdominal: Reports: other - abd pain Allergies: Coded Allergies: CEPHALEXIN (Unverified Allergy, Unknown, 02/24/14) SULFAMETHOXAZOLE (Unverified Allergy, Unknown, 02/24/14) TRIMETHOPRIM (Unverified Allergy, Unknown, 02/24/14) Objective Last 24 Hour Vital Signs Date Time Temp Pulse Resp B/P (MAP) Pulse Ox O2 Delivery O2 Flow Rate FiO2 11/13/18 13:26 79 14 40 11/13/18 12:00 98.1 78 19 137/69 (91) 99 11/13/18 12:00 40 11/13/18 12:00 Mechanical Ventilator 11/13/18 11:42 77 11/13/18 11:05 84 19 40 11/13/18 09:24 80 128/42 11/13/18 09:10 81 19 40 11/13/18 08:00 Mechanical Ventilator 11/13/18 08:00 97.9 80 20 128/42 (70) 99 11/13/18 08:00 40 11/13/18 07:54 80 11/13/18 07:26 84 19 40 11/13/18 05:20 82 17 40 11/13/18 04:00 78 11/13/18 04:00 Mechanical Ventilator 11/13/18 04:00 40 11/13/18 04:00 98.4 81 20 101/48 (65) 100 11/13/18 03:28 82 16 40 11/13/18 02:17 76 17 40 11/13/18 01:10 86 16 40 11/13/18 00:00 83 11/13/18 00:00 97.7 82 16 133/85 (101) 98 11/13/18 00:00 Mechanical Ventilator 11/12/18 22:47 85 17 40 11/12/18 21:00 81 16 40 11/12/18 20:22 81 126/61 11/12/18 20:05 80 16 40 11/12/18 20:00 99.1 101 20 109/65 (80) 99 11/12/18 20:00 98 11/12/18 20:00 40 11/12/18 20:00 Mechanical Ventilator 11/12/18 17:20 81 16 40 11/12/18 16:00 40 11/12/18 16:00 Mechanical Ventilator 11/12/18 16:00 99.1 84 16 126/61 (82) 99 11/12/18 15:14 84 11/12/18 14:54 83 16 40 Intake and Output 11/12/18 11/13/18 18:59 06:59 Intake Total 684 ml 546 ml Output Total 1550 ml Balance -866 ml 546 ml Tube Feeding 504 ml 546 ml Other 180 ml Other 1550 ml Objective trach General Appearance: no acute distress HEENT: atraumatic Respiratory/Chest: lungs clear Cardiovascular: normal rate Abdomen: soft, non tender Microbiology Date/Time Source Procedure Growth Status 11/12/18 12:13 Pleural Fluid Gram Stain - Final Resulted 11/12/18 12:13 Pleural Fluid Body Fluid Culture - Preliminary NO GROWTH Resulted Laboratory Tests 11/13/18 04:00: White Blood Count 8.5, Red Blood Count 5.01, Hemoglobin 12.4L, Hematocrit 40.6L , Mean Corpuscular Volume 81, Mean Corpuscular Hemoglobin 24.8L, Mean Corpuscular Hemoglobin Concent 30.6L, Red Cell Distribution Width 17.2H, Platelet Count 163, Mean Platelet Volume 9.2, Neutrophils (%) (Auto) 76.1H, Lymphocytes (%) (Auto) 16.3L, Monocytes (%) (Auto) 6.9, Eosinophils (%) (Auto) 0.1, Basophils (%) (Auto) 0.6, Sodium Level 134L, Potassium Level 5.0, Chloride Level 94L, Carbon Dioxide Level 31, Anion Gap 9, Blood Urea Nitrogen 63H, Creatinine 9.2H, Estimat Glomerular Filtration Rate 5.8, Glucose Level 95, Calcium Level 9.1 Current Medications Medications (Trade) Dose Ordered Sig/Aleks Route PRN Reason Start Time Stop Time Status Last Admin Dose Admin Acetaminophen (Tylenol) 650 mg Q4H PRN NG Mild Pain/Temp > 100.5 11/12/18 19:00 12/12/18 18:47 Acetaminophen/ Hydrocodone Bitart ([place] 5/325) 1 tab Q4H PRN NG Moderate Pain (Pain Scale 4-6) 11/12/18 15:15 11/19/18 15:14 11/13/18 05:31 Aspirin (ASA) 81 mg DAILY NG 11/13/18 09:00 12/13/18 08:59 11/13/18 09:23 Atorvastatin Calcium (Lipitor) 10 mg BEDTIME NG 11/12/18 21:00 12/02/18 20:59 11/12/18 20:21 Carvedilol (Coreg) 6.25 mg EVERY 12 HOURS NG 11/12/18 21:00 12/01/18 08:59 11/13/18 09:24 Chlorhexidine Gluconate (Glo-Hex 2%) 1 applic DAILY@1999 TOPIC 11/11/18 20:00 12/08/18 19:59 11/12/18 20:20 Dextrose (Dextrose 50%) 25 ml Q30M PRN IV Hypoglycemia 11/11/18 14:45 11/30/18 22:44 Dextrose (Dextrose 50%) 50 ml Q30M PRN IV Hypoglycemia 11/11/18 14:45 11/30/18 22:44 Docusate Sodium (Colace) 100 mg EVERY 8 HOURS NG 11/12/18 22:00 12/12/18 21:59 11/13/18 13:43 Hydralazine HCl (Apresoline) 10 mg Q6H PRN IV For High Blood Pressure 11/11/18 14:39 12/11/18 14:38 Insulin Aspart (NovoLOG) EVERY 6 HOURS SUBQ 11/12/18 12:00 12/01/18 06:29 11/13/18 12:01 Lansoprazole (Prevacid) 30 mg BID NG 11/11/18 18:00 12/11/18 17:59 11/13/18 09:23 Nicotine (Nicoderm) 1 patch Q24H TDERMAL 11/11/18 22:15 12/01/18 22:14 11/12/18 20:22 Nystatin (Nystatin) 5 ml QID ORAL 11/11/18 18:00 11/17/18 17:59 11/13/18 12:08 Olanzapine (ZyPREXA) 2.5 mg BEDTIME NG 11/13/18 21:00 12/13/18 20:59 Polyethylene Glycol (Miralax) 17 gm DAILYPRN PRN NG Constipation 11/12/18 19:00 12/11/18 15:29 11/13/18 05:30 Sevelamer Carbonate (Renvela) 1,600 mg THREE TIMES A DAY NG 11/11/18 18:00 12/11/18 08:59 11/13/18 12:08 Tacrolimus (Prograf) 2 mg MoWeFr@0000,1200 ORAL 11/13/18 00:00 12/02/18 00:00 11/13/18 12:08 Tacrolimus (Prograf) 2 mg SuTuThSa@0900,2100 ORAL 11/12/18 09:00 12/01/18 20:59 11/12/18 20:27 Saroj Mendoza MD Nov 13, 2018 13:52
--- NOTE | 2018-11-13 15:29 | Cardiac Electrophysiology PN ---
Assessment/Plan Assessment/Plan 1. Troponin elevation. No chest pain. Already revascularized by CABG. Likely due to renal failure. On Coreg 6.25 mg bid, aspirin and Lipitor 2. S/P CABG 3. Nonsustained ventricular tachycardia. The patient has history of prior myocardial infarction and bypass. EF 55%. No Syncope 4. Congestive heart failure. On hemodialysis, per Dr. Stevens. 5. End-stage renal disease, on hemodialysis. 6. Status post right sided [employer] dual chamber pacemaker with Nl Fx. 7. Right foot ulcer. Antibiotic per Dr. Landis. FU by Dr. Huizar 8. History of liver transplant on Prograf 9. Respiratory failure, ? etiology anaphylaxis. S/P Emergency tracheostomy. Being weaned 10. Pleural effusion. LANA SOLANO RN Subjective Subjective On the vent in SIMV mode.Alert. Feeding via NG. Getting HD Objective Last 24 Hour Vital Signs Date Time Temp Pulse Resp B/P (MAP) Pulse Ox O2 Delivery O2 Flow Rate FiO2 11/13/18 13:26 79 14 40 11/13/18 12:00 98.1 78 19 137/69 (91) 99 11/13/18 12:00 40 11/13/18 12:00 Mechanical Ventilator 11/13/18 11:42 77 11/13/18 11:05 84 19 40 11/13/18 09:24 80 128/42 11/13/18 09:10 81 19 40 11/13/18 08:00 Mechanical Ventilator 11/13/18 08:00 97.9 80 20 128/42 (70) 99 11/13/18 08:00 40 11/13/18 07:54 80 11/13/18 07:26 84 19 40 11/13/18 05:20 82 17 40 11/13/18 04:00 78 11/13/18 04:00 Mechanical Ventilator 11/13/18 04:00 40 11/13/18 04:00 98.4 81 20 101/48 (65) 100 11/13/18 03:28 82 16 40 11/13/18 02:17 76 17 40 11/13/18 01:10 86 16 40 11/13/18 00:00 83 11/13/18 00:00 97.7 82 16 133/85 (101) 98 11/13/18 00:00 Mechanical Ventilator 11/12/18 22:47 85 17 40 11/12/18 21:00 81 16 40 11/12/18 20:22 81 126/61 11/12/18 20:05 80 16 40 11/12/18 20:00 99.1 101 20 109/65 (80) 99 11/12/18 20:00 98 11/12/18 20:00 40 11/12/18 20:00 Mechanical Ventilator 11/12/18 17:20 81 16 40 11/12/18 16:00 40 11/12/18 16:00 Mechanical Ventilator 11/12/18 16:00 99.1 84 16 126/61 (82) 99 Intake and Output 11/12/18 11/13/18 18:59 06:59 Intake Total 684 ml 546 ml Output Total 1550 ml Balance -866 ml 546 ml Tube Feeding 504 ml 546 ml Other 180 ml Other 1550 ml Laboratory Tests Test 11/13/18 04:00 White Blood Count 8.5 K/UL (4.8-10.8) Red Blood Count 5.01 M/UL (4.70-6.10) Hemoglobin 12.4 G/DL (14.2-18.0) L Hematocrit 40.6 % (42.0-52.0) L Mean Corpuscular Volume 81 FL (80-99) Mean Corpuscular Hemoglobin 24.8 PG (27.0-31.0) L Mean Corpuscular Hemoglobin Concent 30.6 G/DL (32.0-36.0) L Red Cell Distribution Width 17.2 % (11.6-14.8) H Platelet Count 163 K/UL (150-450) Mean Platelet Volume 9.2 FL (6.5-10.1) Neutrophils (%) (Auto) 76.1 % (45.0-75.0) H Lymphocytes (%) (Auto) 16.3 % (20.0-45.0) L Monocytes (%) (Auto) 6.9 % (1.0-10.0) Eosinophils (%) (Auto) 0.1 % (0.0-3.0) Basophils (%) (Auto) 0.6 % (0.0-2.0) Sodium Level 134 MMOL/L (136-145) L Potassium Level 5.0 MMOL/L (3.5-5.1) Chloride Level 94 MMOL/L (98-107) L Carbon Dioxide Level 31 MMOL/L (21-32) Anion Gap 9 mmol/L (5-15) Blood Urea Nitrogen 63 mg/dL (7-18) H Creatinine 9.2 MG/DL (0.55-1.30) H Estimat Glomerular Filtration Rate 5.8 mL/min (>60) Glucose Level 95 MG/DL (74-106) Calcium Level 9.1 MG/DL (8.5-10.1) Microbiology Date/Time Source Procedure Growth Status 11/12/18 12:13 Pleural Fluid Gram Stain - Final Resulted 11/12/18 12:13 Pleural Fluid Body Fluid Culture - Preliminary NO GROWTH Resulted Objective HEAD AND NECK: No JVD.Tracheostomy intact .NG is in LUNGS: Coarse rhonchi. CARDIOVASCULAR: Regular S1 and S2 with no gallop. Sternotomy is intact Pacemaker in the right subclavian ABDOMEN: Soft. EXTREMITIES: 1+ pitting edema Shivam Sharpe MD Nov 13, 2018 15:29
--- NOTE | 2018-11-13 15:54 | Infectious Diseases Prog Note ---
Assessment/Plan Problems: (1) Thrush, oral Assessment & Plan: not improving with local nystatin , will order micafungin to treat him since fluconazole has many interaction with his transplants meds . (2) HCV antibody positive Assessment & Plan: rule out active infection, await viral load to confirm, may need treatment as an out patient with specialist if viral load is high (3) Ground glass opacity present on imaging of lung Assessment & Plan: with no evedence of atypical organisms and negative fungal serology( crypt, cocci, histo, and aspergillosis ) and viral PCR for CMV and herpes . monitor clinically for now, S/P right side thoracentesis and fluids to be sent for culture (4) Foot ulcer Assessment & Plan: in diabetic patient , with necrosis and Infection due to MRSA , continue vancomycin treatment with HD , pending vascular eval and possible surgical debridement. bone scan ruled out osteomyelitis of the heel . will treat with vancomycin with HD for two weeks total . follow up with program coordinator for residence life (5) DM (diabetes mellitus) Assessment & Plan: recommend tight glycemic control to keep blood glucose between 100-140 (6) CHF (congestive heart failure) Assessment & Plan: on HD , renal is following, monitor daily weight (7) Encephalopathy acute Assessment & Plan: suspect metabolic, with high urea level, waxing and waning . (8) Severe tongue swelling Assessment & Plan: improving initially after steroids , but got worse later, with respiratory compromise , had tracheostomy to protect his airway since respiratory status worsened . pulmonary is following (9) Pleural effusion Assessment & Plan: massive on the right, S/P thoracentesis with removal of 1.55 cc of clear fluids, will send for gram stain, culture, fungal and AFB, cytology and pathology Subjective Constitutional: Reports: fatigue HEENT: Reports: dysphagia, other - tongue swelling and thrush Respiratory: Reports: no symptoms Breasts: Reports: no symptoms Cardiovascular: Reports: no symptoms Gastrointestinal/Abdominal: Reports: no symptoms Genitourinary: Reports: no symptoms Neurologic: Reports: weakness Psychiatric: Reports: no symptoms Skin: Reports: ulcer Endocrine: Reports: no symptoms Hematologic: Reports: no symptoms Musculoskeletal: Reports: no symptoms Allergies: Coded Allergies: CEPHALEXIN (Unverified Allergy, Unknown, 02/24/14) SULFAMETHOXAZOLE (Unverified Allergy, Unknown, 02/24/14) TRIMETHOPRIM (Unverified Allergy, Unknown, 02/24/14) Subjective he was feeling ok , had mild nose and throat discomfort at the NGT site , was trached emergently due to worsening respiratory failure, repeated CXR no significant changes , awake and responsive, no fever or chills, no cough or phlegm , no SOB . has more thrush on his tongue Objective Vital Signs Last 24 Hour Vital Signs Date Time Temp Pulse Resp B/P (MAP) Pulse Ox O2 Delivery O2 Flow Rate FiO2 11/13/18 14:35 81 21 40 11/13/18 13:26 79 14 40 11/13/18 12:00 98.1 78 19 137/69 (91) 99 11/13/18 12:00 40 11/13/18 12:00 Mechanical Ventilator 11/13/18 11:42 77 11/13/18 11:05 84 19 40 11/13/18 09:24 80 128/42 11/13/18 09:10 81 19 40 11/13/18 08:00 Mechanical Ventilator 11/13/18 08:00 97.9 80 20 128/42 (70) 99 11/13/18 08:00 40 11/13/18 07:54 80 11/13/18 07:26 84 19 40 11/13/18 05:20 82 17 40 11/13/18 04:00 78 11/13/18 04:00 Mechanical Ventilator 11/13/18 04:00 40 11/13/18 04:00 98.4 81 20 101/48 (65) 100 11/13/18 03:28 82 16 40 11/13/18 02:17 76 17 40 11/13/18 01:10 86 16 40 11/13/18 00:00 83 11/13/18 00:00 97.7 82 16 133/85 (101) 98 11/13/18 00:00 Mechanical Ventilator 11/12/18 22:47 85 17 40 11/12/18 21:00 81 16 40 11/12/18 20:22 81 126/61 11/12/18 20:05 80 16 40 11/12/18 20:00 99.1 101 20 109/65 (80) 99 11/12/18 20:00 98 11/12/18 20:00 40 11/12/18 20:00 Mechanical Ventilator 11/12/18 17:20 81 16 40 11/12/18 16:00 40 11/12/18 16:00 Mechanical Ventilator 11/12/18 16:00 99.1 84 16 126/61 (82) 99 Height (Feet): 5 Height (Inches): 10.00 Weight (Pounds): 200 General Appearance: WD/WN, no acute distress HEENT: normocephalic, atraumatic, anicteric, mucous membranes moist, PERRL, EOMI, supple, no JVD, status post trach, thrush, other - tongue swollen Respiratory/Chest: chest wall non-tender, normal breath sounds, no respiratory distress, no accessory muscle use, decreased breath sounds Cardiovascular: normal peripheral pulses, normal rate, regular rhythm, no gallop/murmur, no JVD Abdomen: soft, non tender, no organomegaly, non distended, no mass, no scars Extremities: no cyanosis, no clubbing Skin: no rash, no lesions, ulcers 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: alert, oriented x 3, responsive Lymphatic: no neck adenopathy, no groin adenopathy Musculoskeletal: normal muscle bulk, no effusion Microbiology Date/Time Source Procedure Growth Status 11/12/18 12:13 Pleural Fluid Gram Stain - Final Resulted 11/12/18 12:13 Pleural Fluid Body Fluid Culture - Preliminary NO GROWTH Resulted Laboratory Tests Test 11/13/18 04:00 White Blood Count 8.5 K/UL (4.8-10.8) Red Blood Count 5.01 M/UL (4.70-6.10) Hemoglobin 12.4 G/DL (14.2-18.0) L Hematocrit 40.6 % (42.0-52.0) L Mean Corpuscular Volume 81 FL (80-99) Mean Corpuscular Hemoglobin 24.8 PG (27.0-31.0) L Mean Corpuscular Hemoglobin Concent 30.6 G/DL (32.0-36.0) L Red Cell Distribution Width 17.2 % (11.6-14.8) H Platelet Count 163 K/UL (150-450) Mean Platelet Volume 9.2 FL (6.5-10.1) Neutrophils (%) (Auto) 76.1 % (45.0-75.0) H Lymphocytes (%) (Auto) 16.3 % (20.0-45.0) L Monocytes (%) (Auto) 6.9 % (1.0-10.0) Eosinophils (%) (Auto) 0.1 % (0.0-3.0) Basophils (%) (Auto) 0.6 % (0.0-2.0) Sodium Level 134 MMOL/L (136-145) L Potassium Level 5.0 MMOL/L (3.5-5.1) Chloride Level 94 MMOL/L (98-107) L Carbon Dioxide Level 31 MMOL/L (21-32) Anion Gap 9 mmol/L (5-15) Blood Urea Nitrogen 63 mg/dL (7-18) H Creatinine 9.2 MG/DL (0.55-1.30) H Estimat Glomerular Filtration Rate 5.8 mL/min (>60) Glucose Level 95 MG/DL (74-106) Calcium Level 9.1 MG/DL (8.5-10.1) Current Medications Medications (Trade) Dose Ordered Sig/Aleks Route PRN Reason Start Time Stop Time Status Last Admin Dose Admin Acetaminophen (Tylenol) 650 mg Q4H PRN NG Mild Pain/Temp > 100.5 11/12/18 19:00 12/12/18 18:47 Acetaminophen/ Hydrocodone Bitart ([place] 5/325) 1 tab Q4H PRN NG Moderate Pain (Pain Scale 4-6) 11/12/18 15:15 11/19/18 15:14 11/13/18 05:31 Aspirin (ASA) 81 mg DAILY NG 11/13/18 09:00 12/13/18 08:59 11/13/18 09:23 Atorvastatin Calcium (Lipitor) 10 mg BEDTIME NG 11/12/18 21:00 12/02/18 20:59 11/12/18 20:21 Carvedilol (Coreg) 6.25 mg EVERY 12 HOURS NG 11/12/18 21:00 12/01/18 08:59 11/13/18 09:24 Chlorhexidine Gluconate (Glo-Hex 2%) 1 applic DAILY@1999 TOPIC 11/11/18 20:00 12/08/18 19:59 11/12/18 20:20 Dextrose (Dextrose 50%) 25 ml Q30M PRN IV Hypoglycemia 11/11/18 14:45 11/30/18 22:44 Dextrose (Dextrose 50%) 50 ml Q30M PRN IV Hypoglycemia 11/11/18 14:45 11/30/18 22:44 Docusate Sodium (Colace) 100 mg EVERY 8 HOURS NG 11/12/18 22:00 12/12/18 21:59 11/13/18 13:43 Hydralazine HCl (Apresoline) 10 mg Q6H PRN IV For High Blood Pressure 11/11/18 14:39 12/11/18 14:38 Insulin Aspart (NovoLOG) EVERY 6 HOURS SUBQ 11/12/18 12:00 12/01/18 06:29 11/13/18 12:01 Lansoprazole (Prevacid) 30 mg BID NG 11/11/18 18:00 12/11/18 17:59 11/13/18 09:23 Nicotine (Nicoderm) 1 patch Q24H TDERMAL 11/11/18 22:15 12/01/18 22:14 11/12/18 20:22 Nystatin (Nystatin) 5 ml QID ORAL 11/11/18 18:00 11/17/18 17:59 11/13/18 12:08 Olanzapine (ZyPREXA) 2.5 mg BEDTIME NG 11/13/18 21:00 12/13/18 20:59 Polyethylene Glycol (Miralax) 17 gm DAILYPRN PRN NG Constipation 11/12/18 19:00 12/11/18 15:29 11/13/18 05:30 Sevelamer Carbonate (Renvela) 1,600 mg THREE TIMES A DAY NG 11/11/18 18:00 12/11/18 08:59 11/13/18 12:08 Tacrolimus (Prograf) 2 mg MoWeFr@0000,1200 ORAL 11/13/18 00:00 12/02/18 00:00 11/13/18 12:08 Tacrolimus (Prograf) 2 mg SuTuThSa@0900,2100 ORAL 11/12/18 09:00 12/01/18 20:59 11/12/18 20:27 Francois Landis M.D. Nov 13, 2018 15:54
[2018-11-13 16:00] VITALS: BP 115/51
--- NOTE | 2018-11-13 16:02 | Nephrology Progress Note ---
Assessment/Plan Problem List: (1) ESRD (end stage renal disease) on dialysis (2) Foot ulcer (3) CHF (congestive heart failure) (4) Pacemaker (5) Acute respiratory failure Assessment: with Co2 retention Assessment ESRD with high K and SOB on admit Foot ulcer, likely infected High Troponin likely NSTMI Pacer , Pleural effusion s/p CABGS s/p Liver transplant Plan Now has tracheostomy DC IV fluid discussed with Dr Mendoza 11/06 DC unnecessary pills as patient NPO One dose of solumedrol 11/06 and again 11/08 HD 11/13 I adjust Vanco dosages- redose 11/12 ID suggests 2 weeks total , hence 11/14 Vanco will be stopped monitor Vanco level start tube feeding per cardio and ID Poor Prognosis Podiatry and Vascular surgical eval Subjective ROS Limited/Unobtainable: No Constitutional: Reports: malaise Objective Objective Last 24 Hour Vital Signs Date Time Temp Pulse Resp B/P (MAP) Pulse Ox O2 Delivery O2 Flow Rate FiO2 11/13/18 14:35 81 21 40 11/13/18 13:26 79 14 40 11/13/18 12:00 98.1 78 19 137/69 (91) 99 11/13/18 12:00 40 11/13/18 12:00 Mechanical Ventilator 11/13/18 11:42 77 11/13/18 11:05 84 19 40 11/13/18 09:24 80 128/42 11/13/18 09:10 81 19 40 11/13/18 08:00 Mechanical Ventilator 11/13/18 08:00 97.9 80 20 128/42 (70) 99 11/13/18 08:00 40 11/13/18 07:54 80 11/13/18 07:26 84 19 40 11/13/18 05:20 82 17 40 11/13/18 04:00 78 11/13/18 04:00 Mechanical Ventilator 11/13/18 04:00 40 11/13/18 04:00 98.4 81 20 101/48 (65) 100 11/13/18 03:28 82 16 40 11/13/18 02:17 76 17 40 11/13/18 01:10 86 16 40 11/13/18 00:00 83 11/13/18 00:00 97.7 82 16 133/85 (101) 98 11/13/18 00:00 Mechanical Ventilator 11/12/18 22:47 85 17 40 11/12/18 21:00 81 16 40 11/12/18 20:22 81 126/61 11/12/18 20:05 80 16 40 11/12/18 20:00 99.1 101 20 109/65 (80) 99 11/12/18 20:00 98 11/12/18 20:00 40 11/12/18 20:00 Mechanical Ventilator 11/12/18 17:20 81 16 40 Intake and Output 11/12/18 11/13/18 18:59 06:59 Intake Total 684 ml 546 ml Output Total 1550 ml Balance -866 ml 546 ml Tube Feeding 504 ml 546 ml Other 180 ml Other 1550 ml Laboratory Tests 11/13/18 04:00: White Blood Count 8.5, Red Blood Count 5.01, Hemoglobin 12.4L, Hematocrit 40.6L , Mean Corpuscular Volume 81, Mean Corpuscular Hemoglobin 24.8L, Mean Corpuscular Hemoglobin Concent 30.6L, Red Cell Distribution Width 17.2H, Platelet Count 163, Mean Platelet Volume 9.2, Neutrophils (%) (Auto) 76.1H, Lymphocytes (%) (Auto) 16.3L, Monocytes (%) (Auto) 6.9, Eosinophils (%) (Auto) 0.1, Basophils (%) (Auto) 0.6, Sodium Level 134L, Potassium Level 5.0, Chloride Level 94L, Carbon Dioxide Level 31, Anion Gap 9, Blood Urea Nitrogen 63H, Creatinine 9.2H, Estimat Glomerular Filtration Rate 5.8, Glucose Level 95, Calcium Level 9.1 Height (Feet): 5 Height (Inches): 10.00 Weight (Pounds): 200 General Appearance: no apparent distress Cardiovascular: normal rate Respiratory/Chest: decreased breath sounds Abdomen: distended Objective no other change Nakul Stevens MD Nov 13, 2018 16:02
[2018-11-13] MEDS: Micafungin 100 MG in NS 110 ML IVPB SCH (18:09)
[2018-11-13 20:00] VITALS: BP 122/52
[2018-11-13] MEDS: Dyna-Hex 2% Top Sol 2oz TOPIC SCH (22:07)
[2018-11-13] MEDS: OLANZapine 2.5mg tab NG SCH (22:07)
--- NOTE | 2018-11-13 23:32 | General Progress Note ---
Assessment/Plan Problem List: (1) Encephalopathy acute ICD Codes: G93.40 - Encephalopathy, unspecified SNOMED: 98144114, 286040013 Status: unchanged Assessment/Plan zyprexa 2.5mg po qhs educate him in regards to weaning process. Subjective Constitutional: Reports: malaise, weakness 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: Reports: anxiety Allergies: Coded Allergies: CEPHALEXIN (Unverified Allergy, Unknown, 02/24/14) SULFAMETHOXAZOLE (Unverified Allergy, Unknown, 02/24/14) TRIMETHOPRIM (Unverified Allergy, Unknown, 02/24/14) Subjective per nurse the pt was more cooperative and receptive the pt is confused. and has diff processing Objective Last 24 Hour Vital Signs Date Time Temp Pulse Resp B/P (MAP) Pulse Ox O2 Delivery O2 Flow Rate FiO2 11/13/18 22:08 94 122/52 11/13/18 20:00 99.0 92 18 122/52 (75) 100 11/13/18 20:00 94 11/13/18 20:00 Mechanical Ventilator 11/13/18 19:48 99 T-piece 12.0 50 11/13/18 19:48 T-piece 12.0 50 11/13/18 19:00 12.0 70 11/13/18 17:00 12.0 50 11/13/18 16:00 Mechanical Ventilator 11/13/18 16:00 40 11/13/18 16:00 79 18 115/51 (72) 99 11/13/18 15:37 75 11/13/18 14:35 81 21 40 11/13/18 13:26 79 14 40 11/13/18 12:00 98.1 78 19 137/69 (91) 99 11/13/18 12:00 40 11/13/18 12:00 Mechanical Ventilator 11/13/18 11:42 77 11/13/18 11:05 84 19 40 11/13/18 09:24 80 128/42 11/13/18 09:10 81 19 40 11/13/18 08:00 Mechanical Ventilator 11/13/18 08:00 97.9 80 20 128/42 (70) 99 11/13/18 08:00 40 11/13/18 07:54 80 11/13/18 07:26 84 19 40 11/13/18 05:20 82 17 40 11/13/18 04:00 78 11/13/18 04:00 Mechanical Ventilator 11/13/18 04:00 40 11/13/18 04:00 98.4 81 20 101/48 (65) 100 11/13/18 03:28 82 16 40 11/13/18 02:17 76 17 40 11/13/18 01:10 86 16 40 11/13/18 00:00 83 11/13/18 00:00 97.7 82 16 133/85 (101) 98 11/13/18 00:00 Mechanical Ventilator Intake and Output 11/12/18 11/13/18 19:00 07:00 Intake Total 684 ml 546 ml Output Total 1550 ml Balance -866 ml 546 ml Tube Feeding 504 ml 546 ml Other 180 ml Other 1550 ml Laboratory Tests 11/13/18 04:00: White Blood Count 8.5, Red Blood Count 5.01, Hemoglobin 12.4L, Hematocrit 40.6L , Mean Corpuscular Volume 81, Mean Corpuscular Hemoglobin 24.8L, Mean Corpuscular Hemoglobin Concent 30.6L, Red Cell Distribution Width 17.2H, Platelet Count 163, Mean Platelet Volume 9.2, Neutrophils (%) (Auto) 76.1H, Lymphocytes (%) (Auto) 16.3L, Monocytes (%) (Auto) 6.9, Eosinophils (%) (Auto) 0.1, Basophils (%) (Auto) 0.6, Sodium Level 134L, Potassium Level 5.0, Chloride Level 94L, Carbon Dioxide Level 31, Anion Gap 9, Blood Urea Nitrogen 63H, Creatinine 9.2H, Estimat Glomerular Filtration Rate 5.8, Glucose Level 95, Calcium Level 9.1 Height (Feet): 5 Height (Inches): 10.00 Weight (Pounds): 200 General Appearance: lethargic - waxing and waning , confused Jeffrey Lala MD Nov 13, 2018 23:32
[2018-11-14] VITALS: BP 158/60
[2018-11-14] MEDS: NovoLOG Insulin Flexpen SUBQ SCH ×5 (00:26→23:43)
[2018-11-14] MEDS: HYDROcodone/Acetamin 5/325 tab NG PRN (00:28)
--- NOTE | 2018-11-14 00:45 | Progress Note ---
DATE: 11/13/2018 SUBJECTIVE: This is an elderly male, currently more awake, alert. He is still having tongue swelling and is on trach. He looks otherwise comfortable. OBJECTIVE: VITAL SIGNS: Blood pressure 115/51, pulse 79, 40% oxygen. CHEST: Bilaterally few crackles. CARDIOVASCULAR: Regular rhythm. ABDOMEN: Soft. EXTREMITIES: CCE. NEUROLOGICAL: Generalized weakness, but he is sitting on the bed moving the extremities. LABORATORY DATA: White count 6.5, hemoglobin 12.4, hematocrit 41, and platelets are 163. Chemistry panel, BUN 63, creatinine 9.2, sodium 135, potassium 5. ASSESSMENT AND PLAN: 1. Angioedema. 2. Status post trach. 3. Chronic renal failure. 4. Aspiration pneumonia. 5. Liver transplant. We will currently continue current treatment. Decannulation of trach. Continue . Continue tacrolimus, aspirin, carvedilol, and Lipitor. Continue Tylenol. The patient was also given some treatment with steroid as well as Benadryl during angioedema. Jamari Carter M.D. DR: AKASH JOB#: [id number] CC:
[2018-11-14 04:00] VITALS: BP 151/66
[2018-11-14 05:41] LABS: BASOPHILS % (AUTO) 0.8 % (0.0-2.0); HEMATOCRIT 42.1 % (42.0-52.0); HEMOGLOBIN 12.9 G/DL (14.2-18.0); LYMPHOCYTES % (AUTO) 9.2 % (20.0-45.0); MEAN CORPUSCULAR VOLUME 83 FL (80-99); MONOCYTES % (AUTO) 7.1 % (1.0-10.0); NEUTROPHILS % (AUTO) 82.8 % (45.0-75.0); PLATELET COUNT 205 K/UL (150-450); RED BLOOD COUNT 5.07 M/UL (4.70-6.10); RED CELL DISTRIBUTION WIDTH 17.3 % (11.6-14.8); WHITE BLOOD COUNT 12.6 K/UL (4.8-10.8)
[2018-11-14] MEDS: Docusate 100mg/10ml Liq NG SCH ×3 (05:46→22:00)
[2018-11-14 05:55] LABS: ANION GAP 9 mmol/L (5-15); BLOOD UREA NITROGEN 53 mg/dL (7-18); CALCIUM 9.7 MG/DL (8.5-10.1); CARBON DIOXIDE 31 MMOL/L (21-32); CHLORIDE 93 MMOL/L (98-107); CREATININE 7.7 MG/DL (0.55-1.30); POTASSIUM 4.5 MMOL/L (3.5-5.1); SODIUM 133 MMOL/L (136-145)
[2018-11-14 05:57] LABS: ALANINE AMINOTRANSFERASE 9 U/L (12-78); ALBUMIN 2.6 G/DL (3.4-5.0); ALKALINE PHOSPHATASE 79 U/L (46-116); ASPARTATE AMINO TRANSFERASE 10 U/L (15-37); BILIRUBIN,DIRECT 0.1 MG/DL (0.0-0.3); BILIRUBIN,TOTAL 0.4 MG/DL (0.2-1.0); PHOSPHORUS 4.3 MG/DL (2.5-4.9)
[2018-11-14 08:00] VITALS: BP 120/43
[2018-11-14] MEDS: Nystatin Susp 500,000 units/5ml ORAL SCH ×4 (09:02→20:23)
[2018-11-14] MEDS: Renvela 800mg Pkt NG SCH ×3 (09:03→17:48)
[2018-11-14] MEDS: Carvedilol 6.25mg Tab NG SCH ×2 (09:03→20:22)
[2018-11-14] MEDS: Aspirin Baby 81mg NG SCH (09:03)
--- NOTE | 2018-11-14 10:15 | General Progress Note ---
Assessment/Plan Problem List: (1) Transplant ICD Codes: Z94.9 - Transplanted organ and tissue status, unspecified SNOMED: 387369830 (2) HTN (hypertension) ICD Codes: I10 - Essential (primary) hypertension SNOMED: 84905988 (3) Pacemaker ICD Codes: Z95.0 - Presence of cardiac pacemaker SNOMED: 441091835 (4) CHF (congestive heart failure) ICD Codes: I50.9 - Heart failure, unspecified SNOMED: 03864339 (5) DM (diabetes mellitus) ICD Codes: E11.9 - Type 2 diabetes mellitus without complications SNOMED: 78576295 (6) Foot ulcer ICD Codes: L97.509 - Non-pressure chronic ulcer of other part of unspecified foot with unspecified severity SNOMED: 56765045 Qualifiers: Qualified Codes: L97.511 - Non-pressure chronic ulcer of other part of right foot limited to breakdown of skin (7) ESRD (end stage renal disease) on dialysis ICD Codes: N18.6 - End stage renal disease; Z99.2 - Dependence on renal dialysis SNOMED: 315711104 Assessment/Plan History of liver transplant, currently on Prograf constipation Patient , status post emergency tracheostomy ST evaluation unable to be performed, patient noncompliant cont tacrolimus cont NGTFs, await ST reevaluation >> PEG if necessary prn transfusions ppi zofran prn Bowel regimen Trend LFTs follow labs Subjective ROS Limited/Unobtainable: No Allergies: Coded Allergies: CEPHALEXIN (Unverified Allergy, Unknown, 02/24/14) SULFAMETHOXAZOLE (Unverified Allergy, Unknown, 02/24/14) TRIMETHOPRIM (Unverified Allergy, Unknown, 02/24/14) Objective Last 24 Hour Vital Signs Date Time Temp Pulse Resp B/P (MAP) Pulse Ox O2 Delivery O2 Flow Rate FiO2 11/14/18 09:03 93 120/43 11/14/18 08:00 Mechanical Ventilator 11/14/18 08:00 94 11/14/18 08:00 98.2 93 26 120/43 (68) 98 11/14/18 08:00 40 11/14/18 06:54 99 T-piece 12.0 40 11/14/18 06:54 T-piece 12.0 40 11/14/18 04:00 98.3 91 24 151/66 (94) 99 11/14/18 04:00 40 11/14/18 04:00 93 11/14/18 04:00 Mechanical Ventilator 11/14/18 02:35 100 T-piece 12.0 40 11/14/18 02:35 T-piece 12.0 40 11/14/18 00:36 Mechanical Ventilator 40 11/14/18 00:36 100 Mechanical Ventilator 40 11/14/18 00:35 90 18 40 11/14/18 00:00 90 11/14/18 00:00 40 11/14/18 00:00 Mechanical Ventilator 11/14/18 00:00 98.6 94 20 158/60 (92) 98 11/13/18 22:08 94 122/52 11/13/18 20:00 99.0 92 18 122/52 (75) 100 11/13/18 20:00 94 11/13/18 20:00 Mechanical Ventilator 11/13/18 19:48 99 T-piece 12.0 50 11/13/18 19:48 T-piece 12.0 50 11/13/18 19:00 12.0 70 11/13/18 17:00 12.0 50 11/13/18 16:00 Mechanical Ventilator 11/13/18 16:00 40 11/13/18 16:00 79 18 115/51 (72) 99 11/13/18 15:37 75 11/13/18 14:35 81 21 40 11/13/18 13:26 79 14 40 11/13/18 12:00 98.1 78 19 137/69 (91) 99 11/13/18 12:00 40 11/13/18 12:00 Mechanical Ventilator 11/13/18 11:42 77 11/13/18 11:05 84 19 40 Intake and Output 11/13/18 11/14/18 19:00 07:00 Intake Total 552 ml 652 ml Output Total 3000 ml 82271 ml Balance -2448 ml -91585 ml Free Water 90 ml 80 ml IV Total 110 ml Tube Feeding 462 ml 462 ml Hemodialysis UF 3000 ml 18801 ml Laboratory Tests 11/14/18 04:00: White Blood Count 12.6H, Red Blood Count 5.07, Hemoglobin 12.9L, Hematocrit 42.1 , Mean Corpuscular Volume 83, Mean Corpuscular Hemoglobin 25.4L, Mean Corpuscular Hemoglobin Concent 30.6L, Red Cell Distribution Width 17.3H, Platelet Count 205, Mean Platelet Volume 8.4, Neutrophils (%) (Auto) 82.8H, Lymphocytes (%) (Auto) 9.2L, Monocytes (%) (Auto) 7.1, Eosinophils (%) (Auto) 0.0, Basophils (%) (Auto) 0.8, Sodium Level 133L, Potassium Level 4.5, Chloride Level 93L, Carbon Dioxide Level 31, Anion Gap 9, Blood Urea Nitrogen 53H, Creatinine 7.7H, Estimat Glomerular Filtration Rate 7.1, Glucose Level 162H, Calcium Level 9.7, Phosphorus Level 4.3, Magnesium Level 2.0, Total Bilirubin 0.4, Direct Bilirubin 0.1, Aspartate Amino Transf (AST/SGOT) 10L, Alanine Aminotransferase (ALT/SGPT) 9L, Alkaline Phosphatase 79, Total Protein 7.2, Albumin 2.6L, Random Vancomycin Level 11.5 Height (Feet): 5 Height (Inches): 10.00 Weight (Pounds): 200 General Appearance: alert EENT: normal ENT inspection Neck: supple Cardiovascular: normal rate Respiratory/Chest: decreased breath sounds Abdomen: normal bowel sounds, non tender, soft Extremities: non-tender Jorge Escalera MD Nov 14, 2018 10:15
[2018-11-14 12:00] VITALS: BP 104/76
--- NOTE | 2018-11-14 12:25 | Diagnostic Imaging Report ---
INDICATION: Nasogastric tube COMPARISON: 11/09/18 FINDINGS: Single frontal view of the abdomen demonstrates a nasogastric tube to be at the gastroesophageal junction, recommend further advancement. Surgical clips are seen in the epigastric region. Partially imaged pacemaker leads are seen. No evidence of organomegaly, abnormal calcifications or obvious soft tissue masses. The osseous structures are intact. IMPRESSION: Nasogastric tube is seen at the gastroesophageal junction, recommend further advancement. <MYCVCSECTION> Critical Value Communications 11/14/18 12:36 Call Nurse TEMI Mi in [facility] on 11/14 12:36 (-07:00)
--- NOTE | 2018-11-14 13:10 | Nephrology Progress Note ---
Assessment/Plan Problem List: (1) ESRD (end stage renal disease) on dialysis (2) Foot ulcer (3) CHF (congestive heart failure) (4) Pacemaker (5) Acute respiratory failure Assessment: with Co2 retention Assessment ESRD with high K and SOB on admit Foot ulcer, likely infected High Troponin likely NSTMI Pacer , Pleural effusion s/p CABGS s/p Liver transplant Plan Now has tracheostomy DC IV fluid discussed with Dr Mendoza 11/06 DC unnecessary pills as patient NPO One dose of solumedrol 11/06 and again 11/08 HD 11/13 next 11/16 I adjust Vanco dosages- redose 11/12 ID suggests 2 weeks total , hence 11/14 Vanco will be stopped monitor Vanco level start tube feeding per cardio and ID Poor Prognosis Podiatry and Vascular surgical eval Subjective ROS Limited/Unobtainable: No Constitutional: Reports: malaise Objective Objective Last 24 Hour Vital Signs Date Time Temp Pulse Resp B/P (MAP) Pulse Ox O2 Delivery O2 Flow Rate FiO2 11/14/18 13:06 98 T-piece 12.0 40 11/14/18 13:06 T-piece 12.0 40 11/14/18 12:00 99.4 94 22 104/76 (85) 98 11/14/18 12:00 94 11/14/18 12:00 Mechanical Ventilator 11/14/18 12:00 40 11/14/18 09:03 93 120/43 11/14/18 08:00 Mechanical Ventilator 11/14/18 08:00 94 11/14/18 08:00 98.2 93 26 120/43 (68) 98 11/14/18 08:00 40 11/14/18 06:54 99 T-piece 12.0 40 11/14/18 06:54 T-piece 12.0 40 11/14/18 04:00 98.3 91 24 151/66 (94) 99 11/14/18 04:00 40 11/14/18 04:00 93 11/14/18 04:00 Mechanical Ventilator 11/14/18 02:35 100 T-piece 12.0 40 11/14/18 02:35 T-piece 12.0 40 11/14/18 00:36 Mechanical Ventilator 40 11/14/18 00:36 100 Mechanical Ventilator 40 11/14/18 00:35 90 18 40 11/14/18 00:00 90 11/14/18 00:00 40 11/14/18 00:00 Mechanical Ventilator 11/14/18 00:00 98.6 94 20 158/60 (92) 98 11/13/18 22:08 94 122/52 11/13/18 20:00 99.0 92 18 122/52 (75) 100 11/13/18 20:00 94 11/13/18 20:00 Mechanical Ventilator 11/13/18 19:48 99 T-piece 12.0 50 11/13/18 19:48 T-piece 12.0 50 11/13/18 19:00 12.0 70 11/13/18 17:00 12.0 50 11/13/18 16:00 Mechanical Ventilator 11/13/18 16:00 40 11/13/18 16:00 79 18 115/51 (72) 99 11/13/18 15:37 75 11/13/18 14:35 81 21 40 11/13/18 13:26 79 14 40 Intake and Output 11/13/18 11/14/18 19:00 07:00 Intake Total 552 ml 652 ml Output Total 3000 ml 70174 ml Balance -2448 ml -75647 ml Free Water 90 ml 80 ml IV Total 110 ml Tube Feeding 462 ml 462 ml Hemodialysis UF 3000 ml 32940 ml Laboratory Tests 11/14/18 04:00: White Blood Count 12.6H, Red Blood Count 5.07, Hemoglobin 12.9L, Hematocrit 42.1 , Mean Corpuscular Volume 83, Mean Corpuscular Hemoglobin 25.4L, Mean Corpuscular Hemoglobin Concent 30.6L, Red Cell Distribution Width 17.3H, Platelet Count 205, Mean Platelet Volume 8.4, Neutrophils (%) (Auto) 82.8H, Lymphocytes (%) (Auto) 9.2L, Monocytes (%) (Auto) 7.1, Eosinophils (%) (Auto) 0.0, Basophils (%) (Auto) 0.8, Sodium Level 133L, Potassium Level 4.5, Chloride Level 93L, Carbon Dioxide Level 31, Anion Gap 9, Blood Urea Nitrogen 53H, Creatinine 7.7H, Estimat Glomerular Filtration Rate 7.1, Glucose Level 162H, Calcium Level 9.7, Phosphorus Level 4.3, Magnesium Level 2.0, Total Bilirubin 0.4, Direct Bilirubin 0.1, Aspartate Amino Transf (AST/SGOT) 10L, Alanine Aminotransferase (ALT/SGPT) 9L, Alkaline Phosphatase 79, Total Protein 7.2, Albumin 2.6L, Random Vancomycin Level 11.5 11/14/18 12:20: Arterial Blood pH 7.378, Arterial Blood Partial Pressure CO2 56.4*H, Arterial Blood Partial Pressure O2 88.3, Arterial Blood HCO3 32.5H, Arterial Blood Oxygen Saturation 96.1, Arterial Blood Base Excess 5.7H, Mino Test Positive Height (Feet): 5 Height (Inches): 10.00 Weight (Pounds): 200 EENT: other - trach Cardiovascular: tachycardia Respiratory/Chest: decreased breath sounds Abdomen: distended Objective no other change Nakul Stevens MD Nov 14, 2018 13:10
--- NOTE | 2018-11-14 14:46 | Infectious Diseases Prog Note ---
Assessment/Plan Problems: (1) Fever Assessment & Plan: with mild leukocytosis will order blood culture and CXR , start vancomycin and aztreonam empirically , send tracheal site culture (2) Thrush, oral Assessment & Plan: continue local nystatin , and iv micafungin to treat him since fluconazole has many interaction with his transplants meds . may need to rule out esophageal sergio (3) HCV antibody positive Assessment & Plan: rule out active infection, await viral load to confirm, may need treatment as an out patient with specialist if viral load is high (4) Ground glass opacity present on imaging of lung Assessment & Plan: with no evedence of atypical organisms and negative fungal serology( crypt, cocci, histo, and aspergillosis ) and viral PCR for CMV and herpes . monitor clinically for now, S/P right side thoracentesis and fluids to be sent for culture (5) Foot ulcer Assessment & Plan: in diabetic patient , with MRSA , S/P vancomycin treatment with HD for two weeks , pending vascular eval and possible surgical debridement. bone scan ruled out osteomyelitis of the heel . follow up with cleaner greaser (6) DM (diabetes mellitus) Assessment & Plan: recommend tight glycemic control to keep blood glucose between 100-140 (7) CHF (congestive heart failure) Assessment & Plan: on HD , renal is following, monitor daily weight (8) Encephalopathy acute Assessment & Plan: suspect metabolic, with high urea level, waxing and waning . (9) Severe tongue swelling Assessment & Plan: improving initially after steroids , but got worse later, with respiratory compromise , had tracheostomy to protect his airway since respiratory status worsened . pulmonary is following (10) Pleural effusion Assessment & Plan: massive on the right, S/P thoracentesis with removal of 1.55 cc of clear fluids, will send for gram stain, culture, fungal and AFB, cytology and pathology Subjective Constitutional: Reports: fever, fatigue HEENT: Reports: dysphagia, other - sowllen tongue with thrush Respiratory: Reports: no symptoms Breasts: Reports: no symptoms Cardiovascular: Reports: no symptoms Gastrointestinal/Abdominal: Reports: no symptoms Genitourinary: Reports: no symptoms Neurologic: Reports: no symptoms Psychiatric: Reports: no symptoms Skin: Reports: ulcer Endocrine: Reports: no symptoms Hematologic: Reports: no symptoms Musculoskeletal: Reports: no symptoms Allergies: Coded Allergies: CEPHALEXIN (Unverified Allergy, Unknown, 02/24/14) SULFAMETHOXAZOLE (Unverified Allergy, Unknown, 02/24/14) TRIMETHOPRIM (Unverified Allergy, Unknown, 02/24/14) Subjective he was feeling ok , still has facial swelling and tongue swelling , was trached emergently due to worsening respiratory failure, awake and responsive, has low grade fever , no chills, no cough or phlegm , no SOB . has less thrush on his tongue Objective Vital Signs Last 24 Hour Vital Signs Date Time Temp Pulse Resp B/P (MAP) Pulse Ox O2 Delivery O2 Flow Rate FiO2 11/14/18 13:06 98 T-piece 12.0 40 11/14/18 13:06 T-piece 12.0 40 11/14/18 12:00 99.4 94 22 104/76 (85) 98 11/14/18 12:00 94 11/14/18 12:00 Mechanical Ventilator 11/14/18 12:00 40 11/14/18 09:03 93 120/43 11/14/18 08:00 Mechanical Ventilator 11/14/18 08:00 94 11/14/18 08:00 98.2 93 26 120/43 (68) 98 11/14/18 08:00 40 11/14/18 06:54 99 T-piece 12.0 40 11/14/18 06:54 T-piece 12.0 40 11/14/18 04:00 98.3 91 24 151/66 (94) 99 11/14/18 04:00 40 11/14/18 04:00 93 11/14/18 04:00 Mechanical Ventilator 11/14/18 02:35 100 T-piece 12.0 40 11/14/18 02:35 T-piece 12.0 40 11/14/18 00:36 Mechanical Ventilator 40 11/14/18 00:36 100 Mechanical Ventilator 40 11/14/18 00:35 90 18 40 11/14/18 00:00 90 11/14/18 00:00 40 11/14/18 00:00 Mechanical Ventilator 11/14/18 00:00 98.6 94 20 158/60 (92) 98 11/13/18 22:08 94 122/52 11/13/18 20:00 99.0 92 18 122/52 (75) 100 11/13/18 20:00 94 11/13/18 20:00 Mechanical Ventilator 11/13/18 19:48 99 T-piece 12.0 50 11/13/18 19:48 T-piece 12.0 50 11/13/18 19:00 12.0 70 11/13/18 17:00 12.0 50 11/13/18 16:00 Mechanical Ventilator 11/13/18 16:00 40 11/13/18 16:00 79 18 115/51 (72) 99 11/13/18 15:37 75 Height (Feet): 5 Height (Inches): 10.00 Weight (Pounds): 200 General Appearance: WD/WN, no acute distress HEENT: normocephalic, atraumatic, anicteric, mucous membranes moist, PERRL, pharynx normal, supple, no JVD, status post trach, other - tongue swelling Respiratory/Chest: chest wall non-tender, no respiratory distress, no accessory muscle use, decreased breath sounds, crackles/rales Cardiovascular: normal peripheral pulses, normal rate, regular rhythm, no gallop/murmur, no JVD Abdomen: normal bowel sounds, soft, non tender, no organomegaly, non distended , no mass, no scars Extremities: no cyanosis, no clubbing Skin: no rash, no lesions, ulcers 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: 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, alert, responsive Lymphatic: no neck adenopathy, no groin adenopathy Musculoskeletal: normal muscle bulk, no effusion Microbiology Date/Time Source Procedure Growth Status 11/12/18 12:13 Pleural Fluid Gram Stain - Final Resulted 11/12/18 12:13 Pleural Fluid Body Fluid Culture - Preliminary NO GROWTH AFTER 24 HOURS Resulted Laboratory Tests Test 11/14/18 04:00 11/14/18 12:20 White Blood Count 12.6 K/UL (4.8-10.8) H Red Blood Count 5.07 M/UL (4.70-6.10) Hemoglobin 12.9 G/DL (14.2-18.0) L Hematocrit 42.1 % (42.0-52.0) Mean Corpuscular Volume 83 FL (80-99) Mean Corpuscular Hemoglobin 25.4 PG (27.0-31.0) L Mean Corpuscular Hemoglobin Concent 30.6 G/DL (32.0-36.0) L Red Cell Distribution Width 17.3 % (11.6-14.8) H Platelet Count 205 K/UL (150-450) Mean Platelet Volume 8.4 FL (6.5-10.1) Neutrophils (%) (Auto) 82.8 % (45.0-75.0) H Lymphocytes (%) (Auto) 9.2 % (20.0-45.0) L Monocytes (%) (Auto) 7.1 % (1.0-10.0) Eosinophils (%) (Auto) 0.0 % (0.0-3.0) Basophils (%) (Auto) 0.8 % (0.0-2.0) Sodium Level 133 MMOL/L (136-145) L Potassium Level 4.5 MMOL/L (3.5-5.1) Chloride Level 93 MMOL/L (98-107) L Carbon Dioxide Level 31 MMOL/L (21-32) Anion Gap 9 mmol/L (5-15) Blood Urea Nitrogen 53 mg/dL (7-18) H Creatinine 7.7 MG/DL (0.55-1.30) H Estimat Glomerular Filtration Rate 7.1 mL/min (>60) Glucose Level 162 MG/DL (74-106) H Calcium Level 9.7 MG/DL (8.5-10.1) Phosphorus Level 4.3 MG/DL (2.5-4.9) Magnesium Level 2.0 MG/DL (1.8-2.4) Total Bilirubin 0.4 MG/DL (0.2-1.0) Direct Bilirubin 0.1 MG/DL (0.0-0.3) Aspartate Amino Transf (AST/SGOT) 10 U/L (15-37) L Alanine Aminotransferase (ALT/SGPT) 9 U/L (12-78) L Alkaline Phosphatase 79 U/L (46-116) Total Protein 7.2 G/DL (6.4-8.2) Albumin 2.6 G/DL (3.4-5.0) L Random Vancomycin Level 11.5 ug/mL Arterial Blood pH 7.378 (7.350-7.450) Arterial Blood Partial Pressure CO2 56.4 mmHg (35.0-45.0) *H Arterial Blood Partial Pressure O2 88.3 mmHg (75.0-100.0) Arterial Blood HCO3 32.5 mmol/L (22.0-26.0) H Arterial Blood Oxygen Saturation 96.1 % (95-100) Arterial Blood Base Excess 5.7 (-2-2) H Mnio Test Positive Current Medications Medications (Trade) Dose Ordered Sig/Aleks Route PRN Reason Start Time Stop Time Status Last Admin Dose Admin Acetaminophen (Tylenol) 650 mg Q4H PRN NG Mild Pain/Temp > 100.5 11/12/18 19:00 12/12/18 18:47 Acetaminophen/ Hydrocodone Bitart ([place] 5/325) 1 tab Q4H PRN NG Moderate Pain (Pain Scale 4-6) 11/12/18 15:15 11/19/18 15:14 11/14/18 00:28 Aspirin (ASA) 81 mg DAILY NG 11/13/18 09:00 12/13/18 08:59 11/14/18 09:03 Atorvastatin Calcium (Lipitor) 10 mg BEDTIME NG 11/12/18 21:00 12/02/18 20:59 11/13/18 22:08 Aztreonam 1 gm/ Dextrose 55 ml @ 110 mls/hr Q12HR IVPB 11/14/18 14:45 11/21/18 14:44 UNV Carvedilol (Coreg) 6.25 mg EVERY 12 HOURS NG 11/12/18 21:00 12/01/18 08:59 11/14/18 09:03 Chlorhexidine Gluconate (Glo-Hex 2%) 1 applic DAILY@1999 TOPIC 11/11/18 20:00 12/08/18 19:59 11/13/18 22:07 Collagenase (Santyl) 1 applic DAILY@2099 TOPIC 11/14/18 21:00 12/14/18 20:59 Dextrose (Dextrose 50%) 25 ml Q30M PRN IV Hypoglycemia 11/11/18 14:45 11/30/18 22:44 Dextrose (Dextrose 50%) 50 ml Q30M PRN IV Hypoglycemia 11/11/18 14:45 11/30/18 22:44 Docusate Sodium (Colace) 100 mg EVERY 8 HOURS NG 11/12/18 22:00 12/12/18 21:59 11/14/18 05:46 Hydralazine HCl (Apresoline) 10 mg Q6H PRN IV For High Blood Pressure 11/11/18 14:39 12/11/18 14:38 Insulin Aspart (NovoLOG) EVERY 6 HOURS SUBQ 11/12/18 12:00 12/01/18 06:29 11/14/18 11:56 Lansoprazole (Prevacid) 30 mg BID NG 11/11/18 18:00 12/11/18 17:59 11/14/18 09:02 Micafungin Sodium 100 mg/Sodium Chloride 110 ml @ 110 mls/hr Q24H IVPB 11/13/18 18:00 11/20/18 17:59 11/13/18 18:09 Nicotine (Nicoderm) 1 patch Q24H TDERMAL 11/11/18 22:15 12/01/18 22:14 11/13/18 22:08 Nystatin (Nystatin) 5 ml QID ORAL 11/11/18 18:00 11/17/18 17:59 11/14/18 13:17 Olanzapine (ZyPREXA) 2.5 mg BEDTIME NG 11/13/18 21:00 12/13/18 20:59 11/13/18 22:07 Polyethylene Glycol (Miralax) 17 gm DAILYPRN PRN NG Constipation 11/12/18 19:00 12/11/18 15:29 11/13/18 05:30 Sevelamer Carbonate (Renvela) 1,600 mg THREE TIMES A DAY NG 11/11/18 18:00 12/11/18 08:59 11/14/18 09:03 Tacrolimus (Prograf) 2 mg MoWeFr@0000,1200 ORAL 11/13/18 00:00 12/02/18 00:00 11/13/18 12:08 Tacrolimus (Prograf) 2 mg SuTuThSa@0900,2100 ORAL 11/12/18 09:00 12/01/18 20:59 11/14/18 09:02 Vancomycin HCl (Vanco rx to dose) 1 ea DAILY PRN MISC Per rx protocol 11/14/18 14:45 12/14/18 14:44 Francois Becker M.D. Nov 14, 2018 14:46
--- NOTE | 2018-11-14 15:59 | Cardiac Electrophysiology PN ---
Assessment/Plan Assessment/Plan 1. Troponin elevation. No chest pain. Already revascularized by CABG. Likely due to renal failure. On Coreg 6.25 mg bid, aspirin and Lipitor 2. S/P CABG 3. Nonsustained ventricular tachycardia. The patient has history of prior myocardial infarction and bypass. EF 55%. No Syncope 4. Congestive heart failure. On hemodialysis, per Dr. Stevens. 5. End-stage renal disease, on hemodialysis. 6. Status post right sided Medtronic dual chamber pacemaker with Nl Fx. 7. Right foot ulcer. Antibiotic per Dr. Landis. FU by Dr. Huizar 8. History of liver transplant on Prograf 9. Respiratory failure, ? etiology anaphylaxis. S/P Emergency tracheostomy. Being weaned 10. Pleural effusion. LANA SOLANO RN Subjective Subjective On the vent in SIMV mode.Alert in NAD Objective Last 24 Hour Vital Signs Date Time Temp Pulse Resp B/P (MAP) Pulse Ox O2 Delivery O2 Flow Rate FiO2 11/14/18 13:06 98 T-piece 12.0 40 11/14/18 13:06 T-piece 12.0 40 11/14/18 12:00 99.4 94 22 104/76 (85) 98 11/14/18 12:00 94 11/14/18 12:00 Mechanical Ventilator 11/14/18 12:00 40 11/14/18 09:03 93 120/43 11/14/18 08:00 Mechanical Ventilator 11/14/18 08:00 94 11/14/18 08:00 98.2 93 26 120/43 (68) 98 11/14/18 08:00 40 11/14/18 06:54 99 T-piece 12.0 40 11/14/18 06:54 T-piece 12.0 40 11/14/18 04:00 98.3 91 24 151/66 (94) 99 11/14/18 04:00 40 11/14/18 04:00 93 11/14/18 04:00 Mechanical Ventilator 11/14/18 02:35 100 T-piece 12.0 40 11/14/18 02:35 T-piece 12.0 40 11/14/18 00:36 Mechanical Ventilator 40 11/14/18 00:36 100 Mechanical Ventilator 40 11/14/18 00:35 90 18 40 3/30/19 00:00 90 11/14/18 00:00 40 11/14/18 00:00 Mechanical Ventilator 11/14/18 00:00 98.6 94 20 158/60 (92) 98 11/13/18 22:08 94 122/52 11/13/18 20:00 99.0 92 18 122/52 (75) 100 11/13/18 20:00 94 11/13/18 20:00 Mechanical Ventilator 11/13/18 19:48 99 T-piece 12.0 50 11/13/18 19:48 T-piece 12.0 50 11/13/18 19:00 12.0 70 11/13/18 17:00 12.0 50 11/13/18 16:00 Mechanical Ventilator 11/13/18 16:00 40 11/13/18 16:00 79 18 115/51 (72) 99 Intake and Output 11/13/18 11/14/18 18:59 06:59 Intake Total 594 ml 652 ml Output Total 3000 ml 64494 ml Balance -2406 ml -78830 ml Free Water 90 ml 80 ml IV Total 110 ml Tube Feeding 504 ml 462 ml Hemodialysis UF 3000 ml 81239 ml Laboratory Tests Test 11/14/18 04:00 11/14/18 12:20 White Blood Count 12.6 K/UL (4.8-10.8) H Red Blood Count 5.07 M/UL (4.70-6.10) Hemoglobin 12.9 G/DL (14.2-18.0) L Hematocrit 42.1 % (42.0-52.0) Mean Corpuscular Volume 83 FL (80-99) Mean Corpuscular Hemoglobin 25.4 PG (27.0-31.0) L Mean Corpuscular Hemoglobin Concent 30.6 G/DL (32.0-36.0) L Red Cell Distribution Width 17.3 % (11.6-14.8) H Platelet Count 205 K/UL (150-450) Mean Platelet Volume 8.4 FL (6.5-10.1) Neutrophils (%) (Auto) 82.8 % (45.0-75.0) H Lymphocytes (%) (Auto) 9.2 % (20.0-45.0) L Monocytes (%) (Auto) 7.1 % (1.0-10.0) Eosinophils (%) (Auto) 0.0 % (0.0-3.0) Basophils (%) (Auto) 0.8 % (0.0-2.0) Sodium Level 133 MMOL/L (136-145) L Potassium Level 4.5 MMOL/L (3.5-5.1) Chloride Level 93 MMOL/L (98-107) L Carbon Dioxide Level 31 MMOL/L (21-32) Anion Gap 9 mmol/L (5-15) Blood Urea Nitrogen 53 mg/dL (7-18) H Creatinine 7.7 MG/DL (0.55-1.30) H Estimat Glomerular Filtration Rate 7.1 mL/min (>60) Glucose Level 162 MG/DL (74-106) H Calcium Level 9.7 MG/DL (8.5-10.1) Phosphorus Level 4.3 MG/DL (2.5-4.9) Magnesium Level 2.0 MG/DL (1.8-2.4) Total Bilirubin 0.4 MG/DL (0.2-1.0) Direct Bilirubin 0.1 MG/DL (0.0-0.3) Aspartate Amino Transf (AST/SGOT) 10 U/L (15-37) L Alanine Aminotransferase (ALT/SGPT) 9 U/L (12-78) L Alkaline Phosphatase 79 U/L (46-116) Total Protein 7.2 G/DL (6.4-8.2) Albumin 2.6 G/DL (3.4-5.0) L Random Vancomycin Level 11.5 ug/mL Arterial Blood pH 7.378 (7.350-7.450) Arterial Blood Partial Pressure CO2 56.4 mmHg (35.0-45.0) *H Arterial Blood Partial Pressure O2 88.3 mmHg (75.0-100.0) Arterial Blood HCO3 32.5 mmol/L (22.0-26.0) H Arterial Blood Oxygen Saturation 96.1 % (95-100) Arterial Blood Base Excess 5.7 (-2-2) H Mino Test Positive Microbiology Date/Time Source Procedure Growth Status 11/12/18 12:13 Pleural Fluid Gram Stain - Final Resulted 11/12/18 12:13 Pleural Fluid Body Fluid Culture - Preliminary NO GROWTH AFTER 24 HOURS Resulted Objective HEAD AND NECK: No JVD.Tracheostomy intact .NG is in LUNGS: Coarse rhonchi. CARDIOVASCULAR: Regular S1 and S2 with no gallop. Sternotomy is intact Pacemaker in the right subclavian ABDOMEN: Soft. EXTREMITIES: 1+ pitting edema Shivam Sharpe MD Nov 14, 2018 15:58
[2018-11-14 16:00] VITALS: BP 112/90
[2018-11-14] MEDS ORDERED: Vancomycin 1.5gm/D5W 275ml IVPB ONE ×2 (16:00)
[2018-11-14] MEDS: Aztreonam Inj 0.5 GM in D5W 55 ML IVPB SCH (16:33)
--- NOTE | 2018-11-14 16:52 | General Progress Note ---
Progress Note Progress Note Surgery leukocytosis today. asked to evaluate trach site. patient seen and examined at bedside. trach site clean. hematoma resolving. erythema around left site trach suture which he has been pulling on. no signs of infection. leukocytosis unlikely related to trach site. trach intact and stable. tolerating wean well. Jerman French Nov 14, 2018 16:52
--- NOTE | 2018-11-14 17:36 | Pulmonology Progress Note ---
Assessment/Plan Assessment/Plan 1. No SVC syndrome on CTA 2. End-stage renal disease, on dialysis, status post multiple upper extremity vascular procedures. 3. Coronary artery bypass surgery. 4. Diabetes. 5. Dysphonia, tongue swelling; s/p trach 6. Resp failure, hypercapneic PLAN: weaning parameters better trach/vent - wean as tolerated tolerates feeds nebs monitor IO FU labs CXR friday w RN Subjective ROS Limited/Unobtainable: Yes Constitutional: Reports: no symptoms Allergies: Coded Allergies: CEPHALEXIN (Unverified Allergy, Unknown, 02/24/14) SULFAMETHOXAZOLE (Unverified Allergy, Unknown, 02/24/14) TRIMETHOPRIM (Unverified Allergy, Unknown, 02/24/14) Subjective awake still with secretions no cp nv or bleeding tolerating tf not getting oob positive uop still iwth tongue swelling but less Objective Last 24 Hour Vital Signs Date Time Temp Pulse Resp B/P (MAP) Pulse Ox O2 Delivery O2 Flow Rate FiO2 11/14/18 16:00 40 11/14/18 16:00 Mechanical Ventilator 11/14/18 16:00 98.6 96 24 112/90 (97) 97 11/14/18 16:00 95 11/14/18 13:06 98 T-piece 12.0 40 11/14/18 13:06 T-piece 12.0 40 11/14/18 12:00 99.4 94 22 104/76 (85) 98 11/14/18 12:00 94 11/14/18 12:00 Mechanical Ventilator 11/14/18 12:00 40 11/14/18 09:03 93 120/43 11/14/18 08:00 Mechanical Ventilator 11/14/18 08:00 94 11/14/18 08:00 98.2 93 26 120/43 (68) 98 11/14/18 08:00 40 11/14/18 06:54 99 T-piece 12.0 40 11/14/18 06:54 T-piece 12.0 40 11/14/18 04:00 98.3 91 24 151/66 (94) 99 11/14/18 04:00 40 11/14/18 04:00 93 11/14/18 04:00 Mechanical Ventilator 11/14/18 02:35 100 T-piece 12.0 40 11/14/18 02:35 T-piece 12.0 40 11/14/18 00:36 Mechanical Ventilator 40 11/14/18 00:36 100 Mechanical Ventilator 40 11/14/18 00:35 90 18 40 11/14/18 00:00 90 11/14/18 00:00 40 11/14/18 00:00 Mechanical Ventilator 11/14/18 00:00 98.6 94 20 158/60 (92) 98 11/13/18 22:08 94 122/52 11/13/18 20:00 99.0 92 18 122/52 (75) 100 11/13/18 20:00 94 11/13/18 20:00 Mechanical Ventilator 11/13/18 19:48 99 T-piece 12.0 50 11/13/18 19:48 T-piece 12.0 50 11/13/18 19:00 12.0 70 Intake and Output 11/13/18 11/14/18 18:59 06:59 Intake Total 594 ml 652 ml Output Total 3000 ml 99770 ml Balance -2406 ml -43697 ml Free Water 90 ml 80 ml IV Total 110 ml Tube Feeding 504 ml 462 ml Hemodialysis UF 3000 ml 28824 ml General Appearance: WD/WN HEENT: status post trach Respiratory/Chest: lungs clear, normal breath sounds Cardiovascular: normal rate, regular rhythm, edema Abdomen: soft, non tender, no organomegaly Skin: no rash Microbiology Date/Time Source Procedure Growth Status 11/12/18 12:13 Pleural Fluid Gram Stain - Final Resulted 11/12/18 12:13 Pleural Fluid Body Fluid Culture - Preliminary NO GROWTH AFTER 24 HOURS Resulted Laboratory Tests 11/14/18 04:00: White Blood Count 12.6H, Red Blood Count 5.07, Hemoglobin 12.9L, Hematocrit 42.1 , Mean Corpuscular Volume 83, Mean Corpuscular Hemoglobin 25.4L, Mean Corpuscular Hemoglobin Concent 30.6L, Red Cell Distribution Width 17.3H, Platelet Count 205, Mean Platelet Volume 8.4, Neutrophils (%) (Auto) 82.8H, Lymphocytes (%) (Auto) 9.2L, Monocytes (%) (Auto) 7.1, Eosinophils (%) (Auto) 0.0, Basophils (%) (Auto) 0.8, Sodium Level 133L, Potassium Level 4.5, Chloride Level 93L, Carbon Dioxide Level 31, Anion Gap 9, Blood Urea Nitrogen 53H, Creatinine 7.7H, Estimat Glomerular Filtration Rate 7.1, Glucose Level 162H, Calcium Level 9.7, Phosphorus Level 4.3, Magnesium Level 2.0, Total Bilirubin 0.4, Direct Bilirubin 0.1, Aspartate Amino Transf (AST/SGOT) 10L, Alanine Aminotransferase (ALT/SGPT) 9L, Alkaline Phosphatase 79, Total Protein 7.2, Albumin 2.6L, Random Vancomycin Level 11.5 11/14/18 12:20: Arterial Blood pH 7.378, Arterial Blood Partial Pressure CO2 56.4*H, Arterial Blood Partial Pressure O2 88.3, Arterial Blood HCO3 32.5H, Arterial Blood Oxygen Saturation 96.1, Arterial Blood Base Excess 5.7H, Mino Test Positive Current Medications Medications (Trade) Dose Ordered Sig/Aleks Route PRN Reason Start Time Stop Time Status Last Admin Dose Admin Acetaminophen (Tylenol) 650 mg Q4H PRN NG Mild Pain/Temp > 100.5 11/12/18 19:00 12/12/18 18:47 Acetaminophen/ Hydrocodone Bitart ([place] 5/325) 1 tab Q4H PRN NG Moderate Pain (Pain Scale 4-6) 11/12/18 15:15 11/19/18 15:14 11/14/18 00:28 Aspirin (ASA) 81 mg DAILY NG 11/13/18 09:00 12/13/18 08:59 11/14/18 09:03 Atorvastatin Calcium (Lipitor) 10 mg BEDTIME NG 11/12/18 21:00 12/02/18 20:59 11/13/18 22:08 Aztreonam 0.5 gm/ Dextrose 55 ml @ 110 mls/hr Q12H IVPB 11/14/18 16:30 11/21/18 16:29 11/14/18 16:33 Carvedilol (Coreg) 6.25 mg EVERY 12 HOURS NG 11/12/18 21:00 12/01/18 08:59 11/14/18 09:03 Chlorhexidine Gluconate (Glo-Hex 2%) 1 applic DAILY@1999 TOPIC 11/11/18 20:00 12/08/18 19:59 11/13/18 22:07 Collagenase (Santyl) 1 applic DAILY@2099 TOPIC 11/14/18 21:00 12/14/18 20:59 Dextrose (Dextrose 50%) 25 ml Q30M PRN IV Hypoglycemia 11/11/18 14:45 11/30/18 22:44 Dextrose (Dextrose 50%) 50 ml Q30M PRN IV Hypoglycemia 11/11/18 14:45 11/30/18 22:44 Docusate Sodium (Colace) 100 mg EVERY 8 HOURS NG 11/12/18 22:00 12/12/18 21:59 11/14/18 05:46 Hydralazine HCl (Apresoline) 10 mg Q6H PRN IV For High Blood Pressure 11/11/18 14:39 12/11/18 14:38 Insulin Aspart (NovoLOG) EVERY 6 HOURS SUBQ 11/12/18 12:00 12/01/18 06:29 11/14/18 11:56 Lansoprazole (Prevacid) 30 mg BID NG 11/11/18 18:00 12/11/18 17:59 11/14/18 09:02 Micafungin Sodium 100 mg/Sodium Chloride 110 ml @ 110 mls/hr Q24H IVPB 11/13/18 18:00 11/20/18 17:59 11/13/18 18:09 Nicotine (Nicoderm) 1 patch Q24H TDERMAL 11/11/18 22:15 12/01/18 22:14 11/13/18 22:08 Nystatin (Nystatin) 5 ml QID ORAL 11/11/18 18:00 11/17/18 17:59 11/14/18 13:17 Olanzapine (ZyPREXA) 2.5 mg BEDTIME NG 11/13/18 21:00 12/13/18 20:59 11/13/18 22:07 Polyethylene Glycol (Miralax) 17 gm DAILYPRN PRN NG Constipation 11/12/18 19:00 12/11/18 15:29 11/13/18 05:30 Sevelamer Carbonate (Renvela) 1,600 mg THREE TIMES A DAY NG 11/11/18 18:00 12/11/18 08:59 11/14/18 09:03 Tacrolimus (Prograf) 2 mg MoWeFr@0000,1200 ORAL 11/13/18 00:00 12/02/18 00:00 11/13/18 12:08 Tacrolimus (Prograf) 2 mg SuTuThSa@0900,2100 ORAL 11/12/18 09:00 12/01/18 20:59 11/14/18 09:02 Vancomycin HCl (Vanco rx to dose) 1 ea DAILY PRN MISC Per rx protocol 11/14/18 14:45 12/14/18 14:44 Vancomycin HCl 1.5 gm/Dextrose 275 ml @ 137.5 mls/ hr ONCE ONCE IVPB 11/14/18 16:00 11/14/18 17:59 11/14/18 17:12 Christina Perez DO Nov 14, 2018 17:36
[2018-11-14] MEDS: Micafungin 100 MG in NS 110 ML IVPB SCH (17:48)
--- NOTE | 2018-11-14 18:15 | Progress Note ---
DATE: 11/14/2018 SUBJECTIVE: This is an elderly male, currently sitting in the bed and more awake. His tongue is still swollen. He has a trach. OBJECTIVE: VITAL SIGNS: Blood pressure 120/43, pulse 93, respirations 18 to 24, and temperature 98.6. CHEST: Bilaterally few crackles. CARDIOVASCULAR: Regular rhythm. ABDOMEN: Soft. EXTREMITIES: No CCE. NEUROLOGIC: Generalized weakness. LABORATORY DATA: White counts are 13,000 and hemoglobin is 13. Chemistry panel, potassium 4.5, BUN , creatinine 7.7. Albumin is 2.6. ASSESSMENT: 1. Angioedema. 2. Status post tracheostomy. 3. Hypertension. 4. Dysphagia. 5. End-stage renal disease. 6. Encephalopathy. PLAN: We will continue current treatment. Consider PEG placement. Continue NG tube feeding meanwhile. Discussed with Dr. Stevens and Dr. Escalera for GI consult. Jamari Carter M.D. DR: AKASH JOB#: [id number] CC:
[2018-11-14] MEDS: Dyna-Hex 2% Top Sol 2oz TOPIC SCH (19:52)
[2018-11-14 20:00] VITALS: BP 152/66
[2018-11-14] MEDS: OLANZapine 2.5mg tab NG SCH (20:23)
--- NOTE | 2018-11-14 22:39 | General Progress Note ---
Assessment/Plan Problem List: (1) Encephalopathy acute ICD Codes: G93.40 - Encephalopathy, unspecified SNOMED: 58901723, 689624724 Assessment/Plan zyprexa 2.5mg po qhs educate him in regards to weaning process. Subjective Allergies: Coded Allergies: CEPHALEXIN (Unverified Allergy, Unknown, 02/24/14) SULFAMETHOXAZOLE (Unverified Allergy, Unknown, 02/24/14) TRIMETHOPRIM (Unverified Allergy, Unknown, 02/24/14) Subjective the pt is confused. waxing and waning of consciousness Objective Last 24 Hour Vital Signs Date Time Temp Pulse Resp B/P (MAP) Pulse Ox O2 Delivery O2 Flow Rate FiO2 11/14/18 20:51 93 20 11/14/18 20:22 91 152/62 11/14/18 20:00 40 11/14/18 20:00 T-piece 11/14/18 20:00 99.2 91 24 152/66 (94) 100 11/14/18 19:34 91 11/14/18 18:46 98 T-piece 12.0 40 11/14/18 18:46 T-piece 12.0 40 11/14/18 18:45 95 20 11/14/18 16:00 40 11/14/18 16:00 Mechanical Ventilator 11/14/18 16:00 98.6 96 24 112/90 (97) 97 11/14/18 16:00 95 11/14/18 13:06 98 T-piece 12.0 40 11/14/18 13:06 T-piece 12.0 40 11/14/18 12:00 99.4 94 22 104/76 (85) 98 11/14/18 12:00 94 11/14/18 12:00 Mechanical Ventilator 11/14/18 12:00 40 11/14/18 09:03 93 120/43 11/14/18 08:00 Mechanical Ventilator 11/14/18 08:00 94 11/14/18 08:00 98.2 93 26 120/43 (68) 98 11/14/18 08:00 40 11/14/18 06:54 99 T-piece 12.0 40 11/14/18 06:54 T-piece 12.0 40 11/14/18 04:00 98.3 91 24 151/66 (94) 99 11/14/18 04:00 40 11/14/18 04:00 93 11/14/18 04:00 Mechanical Ventilator 11/14/18 02:35 100 T-piece 12.0 40 11/14/18 02:35 T-piece 12.0 40 11/14/18 00:36 Mechanical Ventilator 40 11/14/18 00:36 100 Mechanical Ventilator 40 11/14/18 00:35 90 18 40 11/14/18 00:00 90 11/14/18 00:00 40 11/14/18 00:00 Mechanical Ventilator 11/14/18 00:00 98.6 94 20 158/60 (92) 98 Intake and Output 11/13/18 11/14/18 19:00 07:00 Intake Total 552 ml 652 ml Output Total 3000 ml 32471 ml Balance -2448 ml -01679 ml Free Water 90 ml 80 ml IV Total 110 ml Tube Feeding 462 ml 462 ml Hemodialysis UF 3000 ml 36311 ml Laboratory Tests 11/14/18 04:00: White Blood Count 12.6H, Red Blood Count 5.07, Hemoglobin 12.9L, Hematocrit 42.1 , Mean Corpuscular Volume 83, Mean Corpuscular Hemoglobin 25.4L, Mean Corpuscular Hemoglobin Concent 30.6L, Red Cell Distribution Width 17.3H, Platelet Count 205, Mean Platelet Volume 8.4, Neutrophils (%) (Auto) 82.8H, Lymphocytes (%) (Auto) 9.2L, Monocytes (%) (Auto) 7.1, Eosinophils (%) (Auto) 0.0, Basophils (%) (Auto) 0.8, Sodium Level 133L, Potassium Level 4.5, Chloride Level 93L, Carbon Dioxide Level 31, Anion Gap 9, Blood Urea Nitrogen 53H, Creatinine 7.7H, Estimat Glomerular Filtration Rate 7.1, Glucose Level 162H, Calcium Level 9.7, Phosphorus Level 4.3, Magnesium Level 2.0, Total Bilirubin 0.4, Direct Bilirubin 0.1, Aspartate Amino Transf (AST/SGOT) 10L, Alanine Aminotransferase (ALT/SGPT) 9L, Alkaline Phosphatase 79, Total Protein 7.2, Albumin 2.6L, Random Vancomycin Level 11.5 11/14/18 12:20: Arterial Blood pH 7.378, Arterial Blood Partial Pressure CO2 56.4*H, Arterial Blood Partial Pressure O2 88.3, Arterial Blood HCO3 32.5H, Arterial Blood Oxygen Saturation 96.1, Arterial Blood Base Excess 5.7H, Mino Test Positive Height (Feet): 5 Height (Inches): 10.00 Weight (Pounds): 200 General Appearance: no apparent distress, confused Jeffrey Lala MD Nov 14, 2018 22:39
[2018-11-15] VITALS: BP 150/55
[2018-11-15] MEDS: Aztreonam Inj 0.5 GM in D5W 55 ML IVPB SCH ×2 (03:30→16:15)
[2018-11-15 04:00] VITALS: BP 120/63
[2018-11-15] MEDS: NovoLOG Insulin Flexpen SUBQ SCH ×4 (06:00→23:33)
[2018-11-15] MEDS: Docusate 100mg/10ml Liq NG SCH ×3 (06:00→22:00)
[2018-11-15 08:00] VITALS: BP 138/98
--- NOTE | 2018-11-15 09:00 | Diagnostic Imaging Report ---
EXAM: XR Abdomen, 1 View CLINICAL HISTORY: NGT placement TECHNIQUE: Frontal view of the abdomen/pelvis. COMPARISON: Abdominal x-rays dated 11/14/18 FINDINGS: Lower thorax: Cardiac pacer leads overlie the right atrium and right ventricle. Intraperitoneal space: No evidence of intraperitoneal free air. Gastrointestinal tract: Unremarkable bowel gas pattern. No abnormal distention of bowel loops. No luminal air fluid levels. No evidence of pneumatosis intestinalis.. Organs: Renal shadows are partially obscured by overlying bowel gas. No abnormal calcifications identified. Bones/joints: Patient is status post median sternotomy. Unremarkable. Soft tissues: Surgical clips in the right upper abdominal quadrant. Tubes, lines and devices: Tip of an NG tube overlying the distal stomach body, with expected radiographic positioning. IMPRESSION: Tip of an NG tube overlying the distal stomach body, with expected radiographic positioning.
--- NOTE | 2018-11-15 09:04 | General Progress Note ---
Assessment/Plan Problem List: (1) Transplant ICD Codes: Z94.9 - Transplanted organ and tissue status, unspecified SNOMED: 166988009 (2) HTN (hypertension) ICD Codes: I10 - Essential (primary) hypertension SNOMED: 45358093 (3) Pacemaker ICD Codes: Z95.0 - Presence of cardiac pacemaker SNOMED: 092551011 (4) CHF (congestive heart failure) ICD Codes: I50.9 - Heart failure, unspecified SNOMED: 07583132 (5) DM (diabetes mellitus) ICD Codes: E11.9 - Type 2 diabetes mellitus without complications SNOMED: 15344183 (6) Foot ulcer ICD Codes: L97.509 - Non-pressure chronic ulcer of other part of unspecified foot with unspecified severity SNOMED: 19645391 Qualifiers: Qualified Codes: L97.511 - Non-pressure chronic ulcer of other part of right foot limited to breakdown of skin (7) ESRD (end stage renal disease) on dialysis ICD Codes: N18.6 - End stage renal disease; Z99.2 - Dependence on renal dialysis SNOMED: 216770018 Assessment/Plan History of liver transplant, currently on Prograf constipation Patient , status post emergency tracheostomy ST evaluation unable to be performed, patient noncompliant cont tacrolimus cont NGTFs, await ST reevaluation >> PEG if necessary>> patient refusing prn transfusions ppi zofran prn Bowel regimen Trend LFTs follow labs Subjective ROS Limited/Unobtainable: Yes Allergies: Coded Allergies: CEPHALEXIN (Unverified Allergy, Unknown, 02/24/14) SULFAMETHOXAZOLE (Unverified Allergy, Unknown, 02/24/14) TRIMETHOPRIM (Unverified Allergy, Unknown, 02/24/14) Subjective he pulled his NGT again Objective Last 24 Hour Vital Signs Date Time Temp Pulse Resp B/P (MAP) Pulse Ox O2 Delivery O2 Flow Rate FiO2 11/15/18 08:00 T-piece 12.0 11/15/18 08:00 12.0 40 11/15/18 08:00 98.6 88 19 138/98 (111) 97 11/15/18 07:00 97 T-piece 12.0 40 11/15/18 07:00 89 22 11/15/18 07:00 T-piece 12.0 40 11/15/18 04:43 89 20 11/15/18 04:00 98.3 89 24 120/63 (82) 97 11/15/18 04:00 T-piece 12.0 11/15/18 04:00 12.0 40 11/15/18 03:46 88 11/15/18 02:38 87 20 11/15/18 01:01 T-piece 12.0 40 11/15/18 01:01 98 T-piece 12.0 40 11/15/18 00:54 88 20 11/15/18 00:00 99.0 86 24 150/55 (86) 100 11/15/18 00:00 12.0 40 11/15/18 00:00 T-piece 12.0 11/14/18 23:48 86 11/14/18 22:55 87 20 11/14/18 20:51 93 20 11/14/18 20:22 91 152/62 11/14/18 20:00 40 11/14/18 20:00 T-piece 11/14/18 20:00 99.2 91 24 152/66 (94) 100 11/14/18 19:34 91 11/14/18 18:46 98 T-piece 12.0 40 11/14/18 18:46 T-piece 12.0 40 11/14/18 18:45 95 20 11/14/18 16:00 40 11/14/18 16:00 Mechanical Ventilator 11/14/18 16:00 98.6 96 24 112/90 (97) 97 11/14/18 16:00 95 11/14/18 13:06 98 T-piece 12.0 40 11/14/18 13:06 T-piece 12.0 40 11/14/18 12:00 99.4 94 22 104/76 (85) 98 11/14/18 12:00 94 11/14/18 12:00 Mechanical Ventilator 11/14/18 12:00 40 11/14/18 09:03 93 120/43 Intake and Output 11/14/18 11/15/18 19:00 07:00 Intake Total 674.5 ml 690.5 ml Output Total 3000 ml Balance -2325.5 ml 690.5 ml Free Water 120 ml IV Total 302.5 ml 192.5 ml Tube Feeding 252 ml 398 ml Other 100 ml Hemodialysis UF 3000 ml # Bowel Movements 4 Laboratory Tests 11/14/18 12:20: Arterial Blood pH 7.378, Arterial Blood Partial Pressure CO2 56.4*H, Arterial Blood Partial Pressure O2 88.3, Arterial Blood HCO3 32.5H, Arterial Blood Oxygen Saturation 96.1, Arterial Blood Base Excess 5.7H, Mino Test Positive Height (Feet): 5 Height (Inches): 10.00 Weight (Pounds): 200 General Appearance: alert EENT: normal ENT inspection Neck: supple Cardiovascular: normal rate Respiratory/Chest: decreased breath sounds Abdomen: normal bowel sounds, non tender, soft Extremities: non-tender Jorge Escalera MD Nov 15, 2018 09:04
[2018-11-15] MEDS: Renvela 800mg Pkt NG SCH ×3 (09:19→17:00)
[2018-11-15] MEDS: Nystatin Susp 500,000 units/5ml ORAL SCH ×4 (09:19→21:00)
[2018-11-15] MEDS: Carvedilol 6.25mg Tab NG SCH ×2 (09:20→21:00)
[2018-11-15] MEDS: Aspirin Baby 81mg NG SCH (09:20)
[2018-11-15 12:00] VITALS: BP 130/43
--- NOTE | 2018-11-15 13:29 | Nephrology Progress Note ---
Assessment/Plan Problem List: (1) ESRD (end stage renal disease) on dialysis (2) Foot ulcer (3) CHF (congestive heart failure) (4) Pacemaker (5) Acute respiratory failure Assessment: with Co2 retention Assessment ESRD with high K and SOB on admit Foot ulcer, likely infected High Troponin likely NSTMI Pacer , Pleural effusion s/p CABGS s/p Liver transplant Plan Now has tracheostomy DC IV fluid discussed with Dr Mendoza 11/06 DC unnecessary pills as patient NPO One dose of solumedrol 11/06 and again 11/08 HD 11/13 next 11/16 Vanco restarted by ID start tube feeding per cardio and ID Poor Prognosis Podiatry and Vascular surgical eval Subjective ROS Limited/Unobtainable: No Objective Objective Last 24 Hour Vital Signs Date Time Temp Pulse Resp B/P (MAP) Pulse Ox O2 Delivery O2 Flow Rate FiO2 11/15/18 12:34 98 T-piece 12.0 40 11/15/18 12:34 T-piece 12.0 40 11/15/18 12:00 T-piece 12.0 11/15/18 12:00 97.6 81 23 130/43 (72) 95 11/15/18 12:00 12.0 40 11/15/18 10:35 78 14 11/15/18 09:20 88 138/98 11/15/18 08:30 85 18 11/15/18 08:00 87 11/15/18 08:00 T-piece 12.0 11/15/18 08:00 12.0 40 11/15/18 08:00 98.6 88 19 138/98 (111) 97 11/15/18 07:00 97 T-piece 12.0 40 11/15/18 07:00 89 22 11/15/18 07:00 T-piece 12.0 40 11/15/18 04:43 89 20 11/15/18 04:00 98.3 89 24 120/63 (82) 97 11/15/18 04:00 T-piece 12.0 11/15/18 04:00 12.0 40 11/15/18 03:46 88 11/15/18 02:38 87 20 11/15/18 01:01 T-piece 12.0 40 11/15/18 01:01 98 T-piece 12.0 40 11/15/18 00:54 88 20 11/15/18 00:00 99.0 86 24 150/55 (86) 100 11/15/18 00:00 12.0 40 11/15/18 00:00 T-piece 12.0 11/14/18 23:48 86 11/14/18 22:55 87 20 11/14/18 20:51 93 20 11/14/18 20:22 91 152/62 11/14/18 20:00 40 11/14/18 20:00 T-piece 11/14/18 20:00 99.2 91 24 152/66 (94) 100 11/14/18 19:34 91 11/14/18 18:46 98 T-piece 12.0 40 11/14/18 18:46 T-piece 12.0 40 11/14/18 18:45 95 20 11/14/18 16:00 40 11/14/18 16:00 Mechanical Ventilator 11/14/18 16:00 98.6 96 24 112/90 (97) 97 11/14/18 16:00 95 Intake and Output 11/14/18 11/15/18 19:00 07:00 Intake Total 674.5 ml 690.5 ml Output Total 3000 ml Balance -2325.5 ml 690.5 ml Free Water 120 ml IV Total 302.5 ml 192.5 ml Tube Feeding 252 ml 398 ml Other 100 ml Hemodialysis UF 3000 ml # Bowel Movements 4 Height (Feet): 5 Height (Inches): 10.00 Weight (Pounds): 200 General Appearance: no apparent distress EENT: other - NGT Cardiovascular: normal rate Respiratory/Chest: decreased breath sounds Abdomen: distended Objective no other change Nakul Stevens MD Nov 15, 2018 13:29
[2018-11-15] MEDS ORDERED: Tubing IV Secondary IV ONE (15:25)
[2018-11-15] MEDS ORDERED: D5W 275ml ONE (15:25)
[2018-11-15] MEDS ORDERED: Sterile Water Irrig 1000ml IRRIG ONE (15:25)
[2018-11-15] MEDS ORDERED: NS 275ml ONE (15:25)
--- NOTE | 2018-11-15 15:45 | Progress Note ---
DATE: 11/15/2018 SUBJECTIVE: This is an elderly male, currently sitting in bed, more comfortable, and has a trach, doing better. OBJECTIVE: VITAL SIGNS: Blood pressure is 130/70, pulse 74, and respirations 18. SKIN: Good skin turgor. HEENT: NAD. CHEST: Bilaterally clear. CARDIOVASCULAR: Regular rhythm. No gallop. No murmur. ABDOMEN: Soft. Positive bowel sounds. Nontender. EXTREMITIES: CCE. NEUROLOGICAL: Generalized weakness. ASSESSMENT: 1. Angioedema. 2. Chronic respiratory failure. 3. Status post tracheostomy. 4. Encephalopathy. 5. End-stage renal disease. 6. Diabetes. PLAN: We will currently continue hemodialysis. Continue bronchodilator treatments. GT feeding. Jamari Carter M.D. DR: Kacie JOB#: [id number] CC:
[2018-11-15 16:00] VITALS: BP 117/76
--- NOTE | 2018-11-15 17:21 | Pulmonology Progress Note ---
Assessment/Plan Assessment/Plan 1. No SVC syndrome on CTA 2. End-stage renal disease, on dialysis, status post multiple upper extremity vascular procedures. 3. Coronary artery bypass surgery. 4. Diabetes. 5. Dysphonia, tongue swelling; s/p trach 6. Resp failure, hypercapneic PLAN: weaning parameters better trach/vent - wean as tolerated tolerates feeds nebs monitor IO FU labs CXR friday w RN Subjective ROS Limited/Unobtainable: Yes Allergies: Coded Allergies: CEPHALEXIN (Unverified Allergy, Unknown, 02/24/14) SULFAMETHOXAZOLE (Unverified Allergy, Unknown, 02/24/14) TRIMETHOPRIM (Unverified Allergy, Unknown, 02/24/14) Subjective awake still with secretions pulled out NGT no cp nv or bleeding swallow in am pending not getting oob positive uop tongue swelling improved Objective Last 24 Hour Vital Signs Date Time Temp Pulse Resp B/P (MAP) Pulse Ox O2 Delivery O2 Flow Rate FiO2 11/15/18 16:00 T-piece 12.0 11/15/18 16:00 12.0 40 11/15/18 16:00 82 11/15/18 16:00 97.3 80 21 117/76 (90) 96 11/15/18 12:34 98 T-piece 12.0 40 11/15/18 12:34 T-piece 12.0 40 11/15/18 12:00 81 11/15/18 12:00 T-piece 12.0 11/15/18 12:00 97.6 81 23 130/43 (72) 95 11/15/18 12:00 12.0 40 11/15/18 10:35 78 14 11/15/18 09:20 88 138/98 11/15/18 08:30 85 18 11/15/18 08:00 87 11/15/18 08:00 T-piece 12.0 11/15/18 08:00 12.0 40 11/15/18 08:00 98.6 88 19 138/98 (111) 97 11/15/18 07:00 97 T-piece 12.0 40 11/15/18 07:00 89 22 11/15/18 07:00 T-piece 12.0 40 11/15/18 04:43 89 20 11/15/18 04:00 98.3 89 24 120/63 (82) 97 3/31/19 04:00 T-piece 12.0 11/15/18 04:00 12.0 40 11/15/18 03:46 88 11/15/18 02:38 87 20 11/15/18 01:01 T-piece 12.0 40 11/15/18 01:01 98 T-piece 12.0 40 11/15/18 00:54 88 20 11/15/18 00:00 99.0 86 24 150/55 (86) 100 11/15/18 00:00 12.0 40 11/15/18 00:00 T-piece 12.0 11/14/18 23:48 86 11/14/18 22:55 87 20 11/14/18 20:51 93 20 11/14/18 20:22 91 152/62 11/14/18 20:00 40 11/14/18 20:00 T-piece 11/14/18 20:00 99.2 91 24 152/66 (94) 100 11/14/18 19:34 91 11/14/18 18:46 98 T-piece 12.0 40 11/14/18 18:46 T-piece 12.0 40 11/14/18 18:45 95 20 Intake and Output 11/14/18 11/15/18 18:59 06:59 Intake Total 632.5 ml 732.5 ml Output Total 3000 ml Balance -2367.5 ml 732.5 ml Free Water 120 ml IV Total 302.5 ml 192.5 ml Tube Feeding 210 ml 440 ml Other 100 ml Hemodialysis UF 3000 ml # Bowel Movements 3 1 General Appearance: WD/WN HEENT: status post trach Respiratory/Chest: rhonchi Cardiovascular: regular rhythm, regularly irregular Abdomen: soft, non tender, no organomegaly Skin: no rash 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: oriented x 3 Microbiology Date/Time Source Procedure Growth Status 11/14/18 14:53 Neck Gram Stain - Final Resulted 11/14/18 14:53 Neck Wound Culture Pending Resulted Current Medications Medications (Trade) Dose Ordered Sig/Aleks Route PRN Reason Start Time Stop Time Status Last Admin Dose Admin Acetaminophen (Tylenol) 650 mg Q4H PRN NG Mild Pain/Temp > 100.5 11/12/18 19:00 12/12/18 18:47 Acetaminophen/ Hydrocodone Bitart ([place] 5/325) 1 tab Q4H PRN NG Moderate Pain (Pain Scale 4-6) 11/12/18 15:15 11/19/18 15:14 11/14/18 00:28 Aspirin (ASA) 81 mg DAILY NG 11/13/18 09:00 12/13/18 08:59 11/15/18 09:20 Atorvastatin Calcium (Lipitor) 10 mg BEDTIME NG 11/12/18 21:00 12/02/18 20:59 11/14/18 20:23 Aztreonam 0.5 gm/ Dextrose 55 ml @ 110 mls/hr Q12H IVPB 11/14/18 16:30 11/21/18 16:29 11/15/18 16:15 Carvedilol (Coreg) 6.25 mg EVERY 12 HOURS NG 11/12/18 21:00 12/01/18 08:59 11/15/18 09:20 Chlorhexidine Gluconate (Glo-Hex 2%) 1 applic DAILY@1999 TOPIC 11/11/18 20:00 12/08/18 19:59 11/14/18 19:52 Collagenase (Santyl) 1 applic DAILY@2099 TOPIC 11/14/18 21:00 12/14/18 20:59 11/14/18 21:18 Dextrose (Dextrose 50%) 25 ml Q30M PRN IV Hypoglycemia 11/11/18 14:45 11/30/18 22:44 Dextrose (Dextrose 50%) 50 ml Q30M PRN IV Hypoglycemia 11/11/18 14:45 11/30/18 22:44 Docusate Sodium (Colace) 100 mg EVERY 8 HOURS NG 11/12/18 22:00 12/12/18 21:59 11/14/18 05:46 Hydralazine HCl (Apresoline) 10 mg Q6H PRN IV For High Blood Pressure 11/11/18 14:39 12/11/18 14:38 Insulin Aspart (NovoLOG) EVERY 6 HOURS SUBQ 11/12/18 12:00 12/01/18 06:29 11/14/18 23:43 Lansoprazole (Prevacid) 30 mg BID NG 11/11/18 18:00 12/11/18 17:59 11/15/18 09:20 Micafungin Sodium 100 mg/Sodium Chloride 110 ml @ 110 mls/hr Q24H IVPB 11/13/18 18:00 11/20/18 17:59 11/14/18 17:48 Nicotine (Nicoderm) 1 patch Q24H TDERMAL 11/11/18 22:15 12/01/18 22:14 11/14/18 22:03 Nystatin (Nystatin) 5 ml QID ORAL 11/11/18 18:00 11/17/18 17:59 11/15/18 13:25 Olanzapine (ZyPREXA) 2.5 mg BEDTIME NG 11/13/18 21:00 12/13/18 20:59 11/14/18 20:23 Polyethylene Glycol (Miralax) 17 gm DAILYPRN PRN NG Constipation 11/12/18 19:00 12/11/18 15:29 11/13/18 05:30 Quetiapine Fumarate (SEROquel) 25 mg Q12HR NG 11/15/18 21:00 12/15/18 20:59 Sevelamer Carbonate (Renvela) 1,600 mg THREE TIMES A DAY NG 11/11/18 18:00 12/11/18 08:59 11/15/18 09:19 Tacrolimus (Prograf) 2 mg MoWeFr@0000,1200 ORAL 11/13/18 00:00 12/02/18 00:00 11/13/18 12:08 Tacrolimus (Prograf) 2 mg SuTuThSa@0900,2100 ORAL 11/12/18 09:00 12/01/18 20:59 11/15/18 09:20 Vancomycin HCl (Vanco rx to dose) 1 ea DAILY PRN MISC Per rx protocol 11/14/18 14:45 12/14/18 14:44 Christina Perez DO Nov 15, 2018 17:21
[2018-11-15] MEDS: Micafungin 100 MG in NS 110 ML IVPB SCH (17:33)
--- NOTE | 2018-11-15 19:41 | Infectious Diseases Prog Note ---
Assessment/Plan Problems: (1) Fever Assessment & Plan: with mild leukocytosis rule out infectious etiology , await blood culture , and CXR , continue vancomycin and aztreonam empirically , monitor cultures (2) Thrush, oral Assessment & Plan: continue local nystatin , and iv micafungin to treat him since fluconazole has many interaction with his transplants meds . may need to rule out esophageal sergio since immunocompromised (3) HCV antibody positive Assessment & Plan: no evidence of active infection, with undetectable viral load , suspect due to previous exposure , cleared . (4) Ground glass opacity present on imaging of lung Assessment & Plan: with no evedence of atypical organisms and negative fungal serology( crypt, cocci, histo, and aspergillosis ) and viral PCR for CMV and herpes . monitor clinically for now, S/P right side thoracentesis and fluids to be sent for culture (5) Foot ulcer Assessment & Plan: in diabetic patient , with MRSA , S/P vancomycin treatment with HD for two weeks , pending vascular eval and possible surgical debridement. bone scan ruled out osteomyelitis of the heel . 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 (9) Severe tongue swelling Assessment & Plan: improving initially after steroids , but got worse later, with respiratory compromise , had tracheostomy to protect his airway since respiratory status worsened . now improving, pulmonary is following (10) Pleural effusion Assessment & Plan: massive on the right, S/P thoracentesis with removal of 1.55 cc of clear fluids, will send for gram stain, culture, fungal and AFB, cytology and pathology Subjective Constitutional: Reports: no symptoms HEENT: Reports: other - tongue swelling and thrush Respiratory: Reports: no symptoms Breasts: Reports: no symptoms Cardiovascular: Reports: no symptoms Gastrointestinal/Abdominal: Reports: no symptoms Genitourinary: Reports: no symptoms Neurologic: Reports: weakness Psychiatric: Reports: no symptoms Skin: Reports: ulcer Endocrine: Reports: no symptoms Hematologic: Reports: no symptoms Musculoskeletal: Reports: no symptoms Allergies: Coded Allergies: CEPHALEXIN (Unverified Allergy, Unknown, 02/24/14) SULFAMETHOXAZOLE (Unverified Allergy, Unknown, 02/24/14) TRIMETHOPRIM (Unverified Allergy, Unknown, 02/24/14) Subjective he was feeling ok , still has facial swelling and tongue swelling , was trached emergently due to worsening respiratory failure, awake and responsive, has low grade fever , no chills, no cough or phlegm , no SOB . has less thrush on his tongue Objective Vital Signs Last 24 Hour Vital Signs Date Time Temp Pulse Resp B/P (MAP) Pulse Ox O2 Delivery O2 Flow Rate FiO2 11/15/18 16:00 T-piece 12.0 11/15/18 16:00 12.0 40 11/15/18 16:00 82 11/15/18 16:00 97.3 80 21 117/76 (90) 96 11/15/18 12:34 98 T-piece 12.0 40 11/15/18 12:34 T-piece 12.0 40 11/15/18 12:00 81 11/15/18 12:00 T-piece 12.0 11/15/18 12:00 97.6 81 23 130/43 (72) 95 11/15/18 12:00 12.0 40 11/15/18 10:35 78 14 11/15/18 09:20 88 138/98 11/15/18 08:30 85 18 11/15/18 08:00 87 11/15/18 08:00 T-piece 12.0 11/15/18 08:00 12.0 40 11/15/18 08:00 98.6 88 19 138/98 (111) 97 11/15/18 07:00 97 T-piece 12.0 40 11/15/18 07:00 89 22 11/15/18 07:00 T-piece 12.0 40 11/15/18 04:43 89 20 11/15/18 04:00 98.3 89 24 120/63 (82) 97 11/15/18 04:00 T-piece 12.0 11/15/18 04:00 12.0 40 11/15/18 03:46 88 11/15/18 02:38 87 20 11/15/18 01:01 T-piece 12.0 40 11/15/18 01:01 98 T-piece 12.0 40 11/15/18 00:54 88 20 11/15/18 00:00 99.0 86 24 150/55 (86) 100 11/15/18 00:00 12.0 40 11/15/18 00:00 T-piece 12.0 11/14/18 23:48 86 11/14/18 22:55 87 20 11/14/18 20:51 93 20 11/14/18 20:22 91 152/62 11/14/18 20:00 40 11/14/18 20:00 T-piece 11/14/18 20:00 99.2 91 24 152/66 (94) 100 Height (Feet): 5 Height (Inches): 10.00 Weight (Pounds): 200 General Appearance: WD/WN, no acute distress HEENT: normocephalic, atraumatic, anicteric, mucous membranes moist, PERRL, supple, no JVD, status post trach, thrush, other - tongue swelling Respiratory/Chest: chest wall non-tender, no respiratory distress, no accessory muscle use, decreased breath sounds, crackles/rales Cardiovascular: normal peripheral pulses, normal rate, regular rhythm, no gallop/murmur, no JVD Abdomen: normal bowel sounds, soft, non tender, no organomegaly, non distended , no mass, no scars Genitourinary: normal external genitalia Extremities: no cyanosis, no clubbing Skin: no rash, no lesions, ulcers - right heel ulcer with dry eschar, no oozing or draining, no sign of infection 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: 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 normal, alert, oriented x 3, responsive Lymphatic: no neck adenopathy, no groin adenopathy Musculoskeletal: normal muscle bulk, no effusion Microbiology Date/Time Source Procedure Growth Status 11/14/18 14:53 Neck Gram Stain - Final Resulted 11/14/18 14:53 Neck Wound Culture Pending Resulted Current Medications Medications (Trade) Dose Ordered Sig/Aleks Route PRN Reason Start Time Stop Time Status Last Admin Dose Admin Acetaminophen (Tylenol) 650 mg Q4H PRN NG Mild Pain/Temp > 100.5 11/12/18 19:00 12/12/18 18:47 Acetaminophen/ Hydrocodone Bitart ([place] 5/325) 1 tab Q4H PRN NG Moderate Pain (Pain Scale 4-6) 11/12/18 15:15 4/4/19 15:14 11/14/18 00:28 Aspirin (ASA) 81 mg DAILY NG 11/13/18 09:00 12/13/18 08:59 11/15/18 09:20 Atorvastatin Calcium (Lipitor) 10 mg BEDTIME NG 11/12/18 21:00 12/02/18 20:59 11/14/18 20:23 Aztreonam 0.5 gm/ Dextrose 55 ml @ 110 mls/hr Q12H IVPB 11/14/18 16:30 11/21/18 16:29 11/15/18 16:15 Carvedilol (Coreg) 6.25 mg EVERY 12 HOURS NG 11/12/18 21:00 12/01/18 08:59 11/15/18 09:20 Chlorhexidine Gluconate (Glo-Hex 2%) 1 applic DAILY@1999 TOPIC 11/11/18 20:00 12/08/18 19:59 11/14/18 19:52 Collagenase (Santyl) 1 applic DAILY@2099 TOPIC 11/14/18 21:00 12/14/18 20:59 11/14/18 21:18 Dextrose (Dextrose 50%) 25 ml Q30M PRN IV Hypoglycemia 11/11/18 14:45 11/30/18 22:44 Dextrose (Dextrose 50%) 50 ml Q30M PRN IV Hypoglycemia 11/11/18 14:45 11/30/18 22:44 Docusate Sodium (Colace) 100 mg EVERY 8 HOURS NG 11/12/18 22:00 12/12/18 21:59 11/14/18 05:46 Hydralazine HCl (Apresoline) 10 mg Q6H PRN IV For High Blood Pressure 11/11/18 14:39 12/11/18 14:38 Insulin Aspart (NovoLOG) EVERY 6 HOURS SUBQ 11/12/18 12:00 12/01/18 06:29 11/14/18 23:43 Lansoprazole (Prevacid) 30 mg BID NG 11/11/18 18:00 12/11/18 17:59 11/15/18 09:20 Micafungin Sodium 100 mg/Sodium Chloride 110 ml @ 110 mls/hr Q24H IVPB 11/13/18 18:00 11/20/18 17:59 11/15/18 17:33 Nicotine (Nicoderm) 1 patch Q24H TDERMAL 11/11/18 22:15 12/01/18 22:14 11/14/18 22:03 Nystatin (Nystatin) 5 ml QID ORAL 11/11/18 18:00 11/17/18 17:59 11/15/18 17:29 Olanzapine (ZyPREXA) 2.5 mg BEDTIME NG 11/13/18 21:00 12/13/18 20:59 11/14/18 20:23 Polyethylene Glycol (Miralax) 17 gm DAILYPRN PRN NG Constipation 11/12/18 19:00 12/11/18 15:29 11/13/18 05:30 Quetiapine Fumarate (SEROquel) 25 mg Q12HR NG 11/15/18 21:00 12/15/18 20:59 Sevelamer Carbonate (Renvela) 1,600 mg THREE TIMES A DAY NG 11/11/18 18:00 12/11/18 08:59 11/15/18 09:19 Tacrolimus (Prograf) 2 mg MoWeFr@0000,1200 ORAL 11/13/18 00:00 12/02/18 00:00 11/13/18 12:08 Tacrolimus (Prograf) 2 mg SuTuThSa@0900,2100 ORAL 11/12/18 09:00 12/01/18 20:59 11/15/18 09:20 Vancomycin HCl (Vanco rx to dose) 1 ea DAILY PRN MISC Per rx protocol 11/14/18 14:45 12/14/18 14:44 Francois Landis M.D. Nov 15, 2018 19:41
[2018-11-15 20:00] VITALS: BP 154/61
[2018-11-15] MEDS: Dyna-Hex 2% Top Sol 2oz TOPIC SCH (20:25)
[2018-11-15] MEDS: OLANZapine 2.5mg tab NG SCH (21:00)
--- NOTE | 2018-11-15 22:49 | General Progress Note ---
Assessment/Plan Problem List: (1) Encephalopathy acute ICD Codes: G93.40 - Encephalopathy, unspecified SNOMED: 23992061, 751373134 Assessment/Plan Zyprexa 2.5mg po qhs Zyprexa prn dc Seroquel Subjective 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: Reports: anxiety Allergies: Coded Allergies: CEPHALEXIN (Unverified Allergy, Unknown, 02/24/14) SULFAMETHOXAZOLE (Unverified Allergy, Unknown, 02/24/14) TRIMETHOPRIM (Unverified Allergy, Unknown, 02/24/14) Subjective the pt is confused. Objective Last 24 Hour Vital Signs Date Time Temp Pulse Resp B/P (MAP) Pulse Ox O2 Delivery O2 Flow Rate FiO2 11/15/18 21:00 78 154/61 11/15/18 20:00 12.0 40 11/15/18 20:00 98.0 78 22 154/61 (92) 96 11/15/18 20:00 T-piece 12.0 11/15/18 20:00 79 11/15/18 16:00 T-piece 12.0 11/15/18 16:00 12.0 40 11/15/18 16:00 82 11/15/18 16:00 97.3 80 21 117/76 (90) 96 11/15/18 12:34 98 T-piece 12.0 40 11/15/18 12:34 T-piece 12.0 40 11/15/18 12:00 81 11/15/18 12:00 T-piece 12.0 11/15/18 12:00 97.6 81 23 130/43 (72) 95 11/15/18 12:00 12.0 40 11/15/18 10:35 78 14 11/15/18 09:20 88 138/98 11/15/18 08:30 85 18 11/15/18 08:00 87 11/15/18 08:00 T-piece 12.0 11/15/18 08:00 12.0 40 11/15/18 08:00 98.6 88 19 138/98 (111) 97 11/15/18 07:00 97 T-piece 12.0 40 11/15/18 07:00 89 22 11/15/18 07:00 T-piece 12.0 40 11/15/18 04:43 89 20 11/15/18 04:00 98.3 89 24 120/63 (82) 97 11/15/18 04:00 T-piece 12.0 11/15/18 04:00 12.0 40 11/15/18 03:46 88 11/15/18 02:38 87 20 11/15/18 01:01 T-piece 12.0 40 11/15/18 01:01 98 T-piece 12.0 40 11/15/18 00:54 88 20 11/15/18 00:00 99.0 86 24 150/55 (86) 100 11/15/18 00:00 12.0 40 11/15/18 00:00 T-piece 12.0 11/14/18 23:48 86 11/14/18 22:55 87 20 Intake and Output 11/14/18 11/15/18 18:59 06:59 Intake Total 632.5 ml 732.5 ml Output Total 3000 ml Balance -2367.5 ml 732.5 ml Free Water 120 ml IV Total 302.5 ml 192.5 ml Tube Feeding 210 ml 440 ml Other 100 ml Hemodialysis UF 3000 ml # Bowel Movements 3 1 Height (Feet): 5 Height (Inches): 10.00 Weight (Pounds): 200 General Appearance: WD/WN, alert, confused Jeffrey Lala MD Nov 15, 2018 22:49
[2018-11-15] MEDS ORDERED: OLANZapine 2.5mg tab ORAL PRN (23:00)
[2018-11-16] VITALS: BP 111/57
[2018-11-16] MEDS: Aztreonam Inj 0.5 GM in D5W 55 ML IVPB SCH ×2 (03:54→16:13)
[2018-11-16 04:00] VITALS: BP 121/72
[2018-11-16 04:40] LABS: BASOPHILS % (AUTO) 0.9 % (0.0-2.0); HEMATOCRIT 40.7 % (42.0-52.0); HEMOGLOBIN 12.5 G/DL (14.2-18.0); LYMPHOCYTES % (AUTO) 9.6 % (20.0-45.0); MEAN CORPUSCULAR VOLUME 82 FL (80-99); MONOCYTES % (AUTO) 8.9 % (1.0-10.0); NEUTROPHILS % (AUTO) 80.6 % (45.0-75.0); PLATELET COUNT 234 K/UL (150-450); RED BLOOD COUNT 4.94 M/UL (4.70-6.10); RED CELL DISTRIBUTION WIDTH 17.4 % (11.6-14.8); WHITE BLOOD COUNT 9.4 K/UL (4.8-10.8)
[2018-11-16 04:55] LABS: ANION GAP 12 mmol/L (5-15); BLOOD UREA NITROGEN 82 mg/dL (7-18); CALCIUM 9.9 MG/DL (8.5-10.1); CARBON DIOXIDE 28 MMOL/L (21-32); CHLORIDE 92 MMOL/L (98-107); CREATININE 9.9 MG/DL (0.55-1.30); SODIUM 132 MMOL/L (136-145)
[2018-11-16 05:20] LABS: POTASSIUM 6.1 MMOL/L (3.5-5.1)
[2018-11-16] MEDS: NovoLOG Insulin Flexpen SUBQ SCH ×3 (06:00→17:42)
[2018-11-16] MEDS: Docusate 100mg/10ml Liq NG SCH ×3 (06:00→22:00)
[2018-11-16 07:08] LABS: ALANINE AMINOTRANSFERASE 11 U/L (12-78); ALBUMIN 2.4 G/DL (3.4-5.0); ALKALINE PHOSPHATASE 81 U/L (46-116); ASPARTATE AMINO TRANSFERASE 14 U/L (15-37); BILIRUBIN,DIRECT 0.1 MG/DL (0.0-0.3); BILIRUBIN,TOTAL 0.4 MG/DL (0.2-1.0); PHOSPHORUS 7.1 MG/DL (2.5-4.9)
[2018-11-16 08:00] VITALS: BP 121/42
[2018-11-16] MEDS: Nystatin Susp 500,000 units/5ml ORAL SCH ×4 (09:00→21:00)
[2018-11-16] MEDS: Renvela 800mg Pkt NG SCH ×3 (09:00→17:41)
[2018-11-16] MEDS: Carvedilol 6.25mg Tab NG SCH ×2 (09:00→21:00)
[2018-11-16] MEDS: Aspirin Baby 81mg NG SCH (09:00)
--- NOTE | 2018-11-16 10:47 | GI Progress Note ---
Assessment/Plan Problems: (1) Foot ulcer ICD Codes: L97.509 - Non-pressure chronic ulcer of other part of unspecified foot with unspecified severity SNOMED: 69915080 Qualifiers: Qualified Codes: L97.511 - Non-pressure chronic ulcer of other part of right foot limited to breakdown of skin (2) DM (diabetes mellitus) ICD Codes: E11.9 - Type 2 diabetes mellitus without complications SNOMED: 04934694 (3) Transplant ICD Codes: Z94.9 - Transplanted organ and tissue status, unspecified SNOMED: 186103464 Status: stable Status Narrative Discussed with Dr. Escalera Assessment/Plan History of liver transplant, currently on Prograf constipation status post emergency tracheostomy ST evaluation unable to be performed, patient noncompliant NGT removed by patient. PEG to be scheduled tomorrow, d/w son. - NPO @ [place]. - hold all blood thinners tonight. cont tacrolimus prn transfusions ppi zofran prn Bowel regimen Trend LFTs follow labs The patient was seen and examined at bedside and all new and available data was reviewed in the patients chart. I agree with the above findings, impression and plan. (Patient seen earlier today. Signature stamp does not reflect patient encounter time.). - Jorge Escalera MD Subjective Subjective Limited Objective Last 24 Hour Vital Signs Date Time Temp Pulse Resp B/P (MAP) Pulse Ox O2 Delivery O2 Flow Rate FiO2 11/16/18 09:00 81 121/42 11/16/18 08:00 81 11/16/18 08:00 12.0 40 11/16/18 08:00 97.6 82 26 121/42 (68) 92 11/16/18 08:00 T-piece 12.0 11/16/18 06:51 T-piece 12.0 40 11/16/18 06:51 98 T-piece 12.0 40 11/16/18 04:00 85 11/16/18 04:00 T-piece 12.0 11/16/18 04:00 12.0 40 11/16/18 04:00 97.4 85 26 121/72 (88) 94 11/16/18 01:45 T-piece 12.0 40 11/16/18 01:45 96 T-piece 12.0 40 11/16/18 00:00 80 11/16/18 00:00 97.9 80 20 111/57 (75) 99 11/16/18 00:00 T-piece 12.0 11/15/18 21:00 78 154/61 11/15/18 20:00 12.0 40 11/15/18 20:00 98.0 78 22 154/61 (92) 96 11/15/18 20:00 T-piece 12.0 11/15/18 20:00 79 11/15/18 19:32 97 T-piece 12.0 40 11/15/18 19:32 T-piece 12.0 40 11/15/18 16:00 T-piece 12.0 11/15/18 16:00 12.0 40 11/15/18 16:00 82 11/15/18 16:00 97.3 80 21 117/76 (90) 96 11/15/18 12:34 98 T-piece 12.0 40 11/15/18 12:34 T-piece 12.0 40 11/15/18 12:00 81 11/15/18 12:00 T-piece 12.0 11/15/18 12:00 97.6 81 23 130/43 (72) 95 11/15/18 12:00 12.0 40 Intake and Output 11/15/18 11/16/18 19:00 07:00 Intake Total 309 ml Balance 309 ml Free Water 60 ml IV Total 165 ml Tube Feeding 84 ml # Bowel Movements 1 Laboratory Tests Test 11/16/18 03:30 White Blood Count 9.4 K/UL (4.8-10.8) Red Blood Count 4.94 M/UL (4.70-6.10) Hemoglobin 12.5 G/DL (14.2-18.0) L Hematocrit 40.7 % (42.0-52.0) L Mean Corpuscular Volume 82 FL (80-99) Mean Corpuscular Hemoglobin 25.2 PG (27.0-31.0) L Mean Corpuscular Hemoglobin Concent 30.6 G/DL (32.0-36.0) L Red Cell Distribution Width 17.4 % (11.6-14.8) H Platelet Count 234 K/UL (150-450) Mean Platelet Volume 7.8 FL (6.5-10.1) Neutrophils (%) (Auto) 80.6 % (45.0-75.0) H Lymphocytes (%) (Auto) 9.6 % (20.0-45.0) L Monocytes (%) (Auto) 8.9 % (1.0-10.0) Eosinophils (%) (Auto) 0.0 % (0.0-3.0) Basophils (%) (Auto) 0.9 % (0.0-2.0) Sodium Level 132 MMOL/L (136-145) L Potassium Level 6.1 MMOL/L (3.5-5.1) *H Chloride Level 92 MMOL/L (98-107) L Carbon Dioxide Level 28 MMOL/L (21-32) Anion Gap 12 mmol/L (5-15) Blood Urea Nitrogen 82 mg/dL (7-18) H Creatinine 9.9 MG/DL (0.55-1.30) H Estimat Glomerular Filtration Rate 5.3 mL/min (>60) Glucose Level 155 MG/DL (74-106) H Calcium Level 9.9 MG/DL (8.5-10.1) Phosphorus Level 7.1 MG/DL (2.5-4.9) H Magnesium Level 2.3 MG/DL (1.8-2.4) Total Bilirubin 0.4 MG/DL (0.2-1.0) Direct Bilirubin 0.1 MG/DL (0.0-0.3) Aspartate Amino Transf (AST/SGOT) 14 U/L (15-37) L Alanine Aminotransferase (ALT/SGPT) 11 U/L (12-78) L Alkaline Phosphatase 81 U/L (46-116) Total Protein 7.0 G/DL (6.4-8.2) Albumin 2.4 G/DL (3.4-5.0) L Random Vancomycin Level 25.5 ug/mL Height (Feet): 5 Height (Inches): 10.00 Weight (Pounds): 199 General Appearance: WD/WN, no apparent distress, alert Cardiovascular: normal rate Respiratory/Chest: normal breath sounds, no respiratory distress, other - Status post emergency tracheostomy Abdominal Exam: normal bowel sounds, non tender, soft Extremities: non-tender Kelvin Briggs NP Nov 16, 2018 10:47
--- NOTE | 2018-11-16 11:57 | Nephrology Progress Note ---
Assessment/Plan Problem List: (1) ESRD (end stage renal disease) on dialysis (2) Foot ulcer (3) CHF (congestive heart failure) (4) Pacemaker (5) Acute respiratory failure Assessment: with Co2 retention Assessment ESRD with high K and SOB on admit Foot ulcer, likely infected High Troponin likely NSTMI Pacer , Pleural effusion s/p CABGS s/p Liver transplant Plan Now has tracheostomy HD 11/13 next 11/16- seen in process of HD - tolerating well. Vanco restarted by ID start tube feeding / due PEG per cardio and ID Podiatry and Vascular surgical fu Subjective ROS Limited/Unobtainable: No Constitutional: Reports: malaise Objective Objective Last 24 Hour Vital Signs Date Time Temp Pulse Resp B/P (MAP) Pulse Ox O2 Delivery O2 Flow Rate FiO2 11/16/18 09:00 81 121/42 11/16/18 08:00 81 11/16/18 08:00 12.0 40 11/16/18 08:00 97.6 82 26 121/42 (68) 92 11/16/18 08:00 T-piece 12.0 11/16/18 06:51 T-piece 12.0 40 11/16/18 06:51 98 T-piece 12.0 40 11/16/18 04:00 85 11/16/18 04:00 T-piece 12.0 11/16/18 04:00 12.0 40 11/16/18 04:00 97.4 85 26 121/72 (88) 94 11/16/18 01:45 T-piece 12.0 40 11/16/18 01:45 96 T-piece 12.0 40 11/16/18 00:00 80 11/16/18 00:00 97.9 80 20 111/57 (75) 99 11/16/18 00:00 T-piece 12.0 11/15/18 21:00 78 154/61 11/15/18 20:00 12.0 40 11/15/18 20:00 98.0 78 22 154/61 (92) 96 11/15/18 20:00 T-piece 12.0 11/15/18 20:00 79 11/15/18 19:32 97 T-piece 12.0 40 11/15/18 19:32 T-piece 12.0 40 11/15/18 16:00 T-piece 12.0 11/15/18 16:00 12.0 40 11/15/18 16:00 82 11/15/18 16:00 97.3 80 21 117/76 (90) 96 11/15/18 12:34 98 T-piece 12.0 40 11/15/18 12:34 T-piece 12.0 40 11/15/18 12:00 81 11/15/18 12:00 T-piece 12.0 11/15/18 12:00 97.6 81 23 130/43 (72) 95 11/15/18 12:00 12.0 40 Intake and Output 11/15/18 11/16/18 19:00 07:00 Intake Total 309 ml Balance 309 ml Free Water 60 ml IV Total 165 ml Tube Feeding 84 ml # Bowel Movements 1 Laboratory Tests 11/16/18 03:30: White Blood Count 9.4, Red Blood Count 4.94, Hemoglobin 12.5L, Hematocrit 40.7L , Mean Corpuscular Volume 82, Mean Corpuscular Hemoglobin 25.2L, Mean Corpuscular Hemoglobin Concent 30.6L, Red Cell Distribution Width 17.4H, Platelet Count 234, Mean Platelet Volume 7.8, Neutrophils (%) (Auto) 80.6H, Lymphocytes (%) (Auto) 9.6L, Monocytes (%) (Auto) 8.9, Eosinophils (%) (Auto) 0.0, Basophils (%) (Auto) 0.9, Sodium Level 132L, Potassium Level 6.1*H, Chloride Level 92L, Carbon Dioxide Level 28, Anion Gap 12, Blood Urea Nitrogen 82H, Creatinine 9.9H, Estimat Glomerular Filtration Rate 5.3, Glucose Level 155H , Calcium Level 9.9, Phosphorus Level 7.1H, Magnesium Level 2.3, Total Bilirubin 0.4, Direct Bilirubin 0.1, Aspartate Amino Transf (AST/SGOT) 14L, Alanine Aminotransferase (ALT/SGPT) 11L, Alkaline Phosphatase 81, Total Protein 7.0, Albumin 2.4L, Random Vancomycin Level 25.5 Height (Feet): 5 Height (Inches): 10.00 Weight (Pounds): 199 General Appearance: no apparent distress EENT: other - Trach Cardiovascular: normal rate Respiratory/Chest: decreased breath sounds Abdomen: soft Objective no other change Fouladian,Nakul MD Nov 16, 2018 11:57
[2018-11-16 12:00] VITALS: BP 144/99
--- NOTE | 2018-11-16 12:52 | Cardiology Report ---
APPROVED REPORT EKG Measurement Heart [id number] Sinus rhythm with 1st degree AV block Ventricular pacing by demand Voltage for LVH Abnormal ECG
--- NOTE | 2018-11-16 12:57 | Pulmonology Progress Note ---
Assessment/Plan Assessment/Plan 1. No SVC syndrome on CTA 2. End-stage renal disease, on dialysis, status post multiple upper extremity vascular procedures. 3. Coronary artery bypass surgery. 4. Diabetes. 5. Dysphonia, tongue swelling; s/p trach 6. Resp failure, hypercapneic PLAN: tolerated trach collar dialysis for high K tolerates feeds disc w RN progressing Subjective ROS Limited/Unobtainable: Yes Allergies: Coded Allergies: CEPHALEXIN (Unverified Allergy, Unknown, 02/24/14) SULFAMETHOXAZOLE (Unverified Allergy, Unknown, 02/24/14) TRIMETHOPRIM (Unverified Allergy, Unknown, 02/24/14) Objective Last 24 Hour Vital Signs Date Time Temp Pulse Resp B/P (MAP) Pulse Ox O2 Delivery O2 Flow Rate FiO2 11/16/18 12:00 12.0 40 11/16/18 12:00 T-piece 12.0 11/16/18 09:00 81 121/42 11/16/18 08:00 81 11/16/18 08:00 12.0 40 11/16/18 08:00 97.6 82 26 121/42 (68) 92 11/16/18 08:00 T-piece 12.0 11/16/18 06:51 T-piece 12.0 40 11/16/18 06:51 98 T-piece 12.0 40 11/16/18 04:00 85 11/16/18 04:00 T-piece 12.0 11/16/18 04:00 12.0 40 11/16/18 04:00 97.4 85 26 121/72 (88) 94 11/16/18 01:45 T-piece 12.0 40 11/16/18 01:45 96 T-piece 12.0 40 11/16/18 00:00 80 11/16/18 00:00 97.9 80 20 111/57 (75) 99 11/16/18 00:00 T-piece 12.0 11/15/18 21:00 78 154/61 11/15/18 20:00 12.0 40 11/15/18 20:00 98.0 78 22 154/61 (92) 96 11/15/18 20:00 T-piece 12.0 11/15/18 20:00 79 11/15/18 19:32 97 T-piece 12.0 40 11/15/18 19:32 T-piece 12.0 40 11/15/18 16:00 T-piece 12.0 11/15/18 16:00 12.0 40 11/15/18 16:00 82 11/15/18 16:00 97.3 80 21 117/76 (90) 96 Intake and Output 11/15/18 11/16/18 19:00 07:00 Intake Total 309 ml Balance 309 ml Free Water 60 ml IV Total 165 ml Tube Feeding 84 ml # Bowel Movements 1 Objective trach General Appearance: no acute distress Respiratory/Chest: lungs clear Cardiovascular: normal rate Microbiology Date/Time Source Procedure Growth Status 11/14/18 15:30 Blood Blood Culture - Preliminary NO GROWTH AFTER 24 HOURS Resulted 11/14/18 14:45 Blood Blood Culture - Preliminary NO GROWTH AFTER 24 HOURS Resulted 11/14/18 14:53 Neck Gram Stain - Final Resulted 11/14/18 14:53 Wound Culture - Preliminary Gram Negative Bacillus 1 Gram Negative Bacillus 2 Gram Positive Cocci Yeast Species Resulted Laboratory Tests 11/16/18 03:30: White Blood Count 9.4, Red Blood Count 4.94, Hemoglobin 12.5L, Hematocrit 40.7L , Mean Corpuscular Volume 82, Mean Corpuscular Hemoglobin 25.2L, Mean Corpuscular Hemoglobin Concent 30.6L, Red Cell Distribution Width 17.4H, Platelet Count 234, Mean Platelet Volume 7.8, Neutrophils (%) (Auto) 80.6H, Lymphocytes (%) (Auto) 9.6L, Monocytes (%) (Auto) 8.9, Eosinophils (%) (Auto) 0.0, Basophils (%) (Auto) 0.9, Sodium Level 132L, Potassium Level 6.1*H, Chloride Level 92L, Carbon Dioxide Level 28, Anion Gap 12, Blood Urea Nitrogen 82H, Creatinine 9.9H, Estimat Glomerular Filtration Rate 5.3, Glucose Level 155H , Calcium Level 9.9, Phosphorus Level 7.1H, Magnesium Level 2.3, Total Bilirubin 0.4, Direct Bilirubin 0.1, Aspartate Amino Transf (AST/SGOT) 14L, Alanine Aminotransferase (ALT/SGPT) 11L, Alkaline Phosphatase 81, Total Protein 7.0, Albumin 2.4L, Random Vancomycin Level 25.5 Current Medications Medications (Trade) Dose Ordered Sig/Aleks Route PRN Reason Start Time Stop Time Status Last Admin Dose Admin Acetaminophen (Tylenol) 650 mg Q4H PRN NG Mild Pain/Temp > 100.5 11/12/18 19:00 12/12/18 18:47 Acetaminophen/ Hydrocodone Bitart ([place] 5/325) 1 tab Q4H PRN NG Moderate Pain (Pain Scale 4-6) 11/12/18 15:15 11/19/18 15:14 11/14/18 00:28 Aspirin (ASA) 81 mg DAILY NG 11/13/18 09:00 12/13/18 08:59 11/15/18 09:20 Atorvastatin Calcium (Lipitor) 10 mg BEDTIME NG 11/12/18 21:00 12/02/18 20:59 11/14/18 20:23 Aztreonam 0.5 gm/ Dextrose 55 ml @ 110 mls/hr Q12H IVPB 11/14/18 16:30 11/21/18 16:29 11/16/18 03:54 Carvedilol (Coreg) 6.25 mg EVERY 12 HOURS NG 11/12/18 21:00 12/01/18 08:59 11/15/18 09:20 Chlorhexidine Gluconate (Glo-Hex 2%) 1 applic DAILY@2000 TOPIC 11/11/18 20:00 12/08/18 19:59 11/15/18 20:25 Collagenase (Santyl) 1 applic DAILY@2100 TOPIC 11/14/18 21:00 12/14/18 20:59 11/15/18 22:17 Dextrose (Dextrose 50%) 25 ml Q30M PRN IV Hypoglycemia 11/11/18 14:45 11/30/18 22:44 Dextrose (Dextrose 50%) 50 ml Q30M PRN IV Hypoglycemia 11/11/18 14:45 11/30/18 22:44 Docusate Sodium (Colace) 100 mg EVERY 8 HOURS NG 11/12/18 22:00 12/12/18 21:59 11/14/18 05:46 Hydralazine HCl (Apresoline) 10 mg Q6H PRN IV For High Blood Pressure 11/11/18 14:39 12/11/18 14:38 Insulin Aspart (NovoLOG) EVERY 6 HOURS SUBQ 11/12/18 12:00 4/16/19 06:29 11/14/18 23:43 Lansoprazole (Prevacid) 30 mg BID NG 11/11/18 18:00 12/11/18 17:59 11/15/18 09:20 Micafungin Sodium 100 mg/Sodium Chloride 110 ml @ 110 mls/hr Q24H IVPB 11/13/18 18:00 11/20/18 17:59 11/15/18 17:33 Nicotine (Nicoderm) 1 patch Q24H TDERMAL 11/11/18 22:15 12/01/18 22:14 11/15/18 22:24 Nystatin (Nystatin) 5 ml QID ORAL 11/11/18 18:00 11/17/18 17:59 11/15/18 17:29 Olanzapine (ZyPREXA) 2.5 mg BEDTIME NG 11/13/18 21:00 12/13/18 20:59 11/14/18 20:23 Olanzapine (ZyPREXA) 2.5 mg Q6H PRN ORAL agitation 11/15/18 23:00 12/15/18 22:59 Polyethylene Glycol (Miralax) 17 gm DAILYPRN PRN NG Constipation 11/12/18 19:00 12/11/18 15:29 11/13/18 05:30 Sevelamer Carbonate (Renvela) 1,600 mg THREE TIMES A DAY NG 11/11/18 18:00 12/11/18 08:59 11/15/18 09:19 Tacrolimus (Prograf) 2 mg MoWeFr@0000,1200 ORAL 11/13/18 00:00 12/02/18 00:00 11/13/18 12:08 Tacrolimus (Prograf) 2 mg SuTuThSa@0900,2100 ORAL 11/12/18 09:00 12/01/18 20:59 11/15/18 09:20 Vancomycin HCl (Vanco rx to dose) 1 ea DAILY PRN MISC Per rx protocol 11/14/18 14:45 12/14/18 14:44 Saroj Mendoza MD Nov 16, 2018 12:57
--- NOTE | 2018-11-16 14:23 | Diagnostic Imaging Report ---
Indication: Cough, shortness of breath Technique: One view of the chest Comparison: 11/14/2018 Findings: There is increased opacification of the right hemithorax, presumably due to enlarging massive pleural effusion, with only a small amount of residual aerated lung visible at the apex. Small left pleural effusion and extensive pulmonary interstitial and airspace edema persist, probably unchanged. Right chest pacemaker, tracheostomy again demonstrated Impression: Further enlargement of a massive right pleural effusion, opacifying most of the right hemithorax. Bilateral interstitial edema persists, unchanged
--- NOTE | 2018-11-16 15:00 | Progress Note ---
DATE: 11/16/2018 SUBJECTIVE: The patient is currently sleeping in the bed and having hemodialysis this morning, otherwise stable. OBJECTIVE: VITAL SIGNS: Blood pressure 121/72, pulse 85, respirations 20s, temperature 97.4. CHEST: Bilateral few crackles. CARDIOVASCULAR: Regular rhythm. ABDOMEN: Soft. EXTREMITIES: CCE. NEUROLOGIC: Nonverbal. Currently sleeping, but moving in the bed. LABORATORY DATA: White cell counts 9.4, hemoglobin 13. Chemistry panel, sodium 132, potassium 6.1, BUN 82, creatinine 9.9. Blood gas, ABG 7.37, pCO2 56, bicarb 88. ASSESSMENT AND PLAN: 1. Angioedema. 2. End-stage renal disease. 3. Diabetes. 4. Hypertension. The patient probably need a PEG and discussed with Dr. Escalera. Continue current treatment. Continue hemodialysis. Currently continue vancomycin, micafungin and tacrolimus. Jamari Carter M.D. DR: AKASH JOB#: [id number] CC:
--- NOTE | 2018-11-16 15:36 | Cardiac Electrophysiology PN ---
Assessment/Plan Assessment/Plan 1. Troponin elevation. No chest pain. Already revascularized by CABG. Likely due to renal failure. On Coreg 6.25 mg bid, aspirin and Lipitor 2. S/P CABG 3. Nonsustained ventricular tachycardia. The patient has history of prior myocardial infarction and bypass. EF 55%. No Syncope 4. Congestive heart failure. On hemodialysis, per Dr. Stevens. 5. End-stage renal disease, on hemodialysis. 6. Status post right sided Medtronic dual chamber pacemaker with Nl Fx. 7. Right foot ulcer. Antibiotic per Dr. Landis. FU by Dr. Huizar 8. History of liver transplant on Prograf 9. Respiratory failure, ? etiology anaphylaxis. S/P Emergency tracheostomy. Now weaned off the vent on T Piece 10. Pleural effusion. FU Dr. Reji SOLANO RN Subjective Subjective On T piece off the vent. Alert in NAD. Asking for pain meds. Had HD. Pulled out NG tube. Plan for PEG tomorrow Objective Last 24 Hour Vital Signs Date Time Temp Pulse Resp B/P (MAP) Pulse Ox O2 Delivery O2 Flow Rate FiO2 11/16/18 12:00 97.7 91 20 144/99 (114) 95 11/16/18 12:00 90 11/16/18 12:00 12.0 40 11/16/18 12:00 T-piece 12.0 11/16/18 09:00 81 121/42 11/16/18 08:00 81 11/16/18 08:00 12.0 40 11/16/18 08:00 97.6 82 26 121/42 (68) 92 11/16/18 08:00 T-piece 12.0 11/16/18 06:51 T-piece 12.0 40 11/16/18 06:51 98 T-piece 12.0 40 11/16/18 04:00 85 11/16/18 04:00 T-piece 12.0 11/16/18 04:00 12.0 40 11/16/18 04:00 97.4 85 26 121/72 (88) 94 11/16/18 01:45 T-piece 12.0 40 11/16/18 01:45 96 T-piece 12.0 40 11/16/18 00:00 80 11/16/18 00:00 97.9 80 20 111/57 (75) 99 11/16/18 00:00 T-piece 12.0 11/15/18 21:00 78 154/61 11/15/18 20:00 12.0 40 11/15/18 20:00 98.0 78 22 154/61 (92) 96 11/15/18 20:00 T-piece 12.0 11/15/18 20:00 79 11/15/18 19:32 97 T-piece 12.0 40 11/15/18 19:32 T-piece 12.0 40 11/15/18 16:00 T-piece 12.0 11/15/18 16:00 12.0 40 11/15/18 16:00 82 11/15/18 16:00 97.3 80 21 117/76 (90) 96 Intake and Output 11/15/18 11/16/18 19:00 07:00 Intake Total 309 ml Balance 309 ml Free Water 60 ml IV Total 165 ml Tube Feeding 84 ml # Bowel Movements 1 Laboratory Tests Test 11/16/18 03:30 White Blood Count 9.4 K/UL (4.8-10.8) Red Blood Count 4.94 M/UL (4.70-6.10) Hemoglobin 12.5 G/DL (14.2-18.0) L Hematocrit 40.7 % (42.0-52.0) L Mean Corpuscular Volume 82 FL (80-99) Mean Corpuscular Hemoglobin 25.2 PG (27.0-31.0) L Mean Corpuscular Hemoglobin Concent 30.6 G/DL (32.0-36.0) L Red Cell Distribution Width 17.4 % (11.6-14.8) H Platelet Count 234 K/UL (150-450) Mean Platelet Volume 7.8 FL (6.5-10.1) Neutrophils (%) (Auto) 80.6 % (45.0-75.0) H Lymphocytes (%) (Auto) 9.6 % (20.0-45.0) L Monocytes (%) (Auto) 8.9 % (1.0-10.0) Eosinophils (%) (Auto) 0.0 % (0.0-3.0) Basophils (%) (Auto) 0.9 % (0.0-2.0) Sodium Level 132 MMOL/L (136-145) L Potassium Level 6.1 MMOL/L (3.5-5.1) *H Chloride Level 92 MMOL/L (98-107) L Carbon Dioxide Level 28 MMOL/L (21-32) Anion Gap 12 mmol/L (5-15) Blood Urea Nitrogen 82 mg/dL (7-18) H Creatinine 9.9 MG/DL (0.55-1.30) H Estimat Glomerular Filtration Rate 5.3 mL/min (>60) Glucose Level 155 MG/DL (74-106) H Calcium Level 9.9 MG/DL (8.5-10.1) Phosphorus Level 7.1 MG/DL (2.5-4.9) H Magnesium Level 2.3 MG/DL (1.8-2.4) Total Bilirubin 0.4 MG/DL (0.2-1.0) Direct Bilirubin 0.1 MG/DL (0.0-0.3) Aspartate Amino Transf (AST/SGOT) 14 U/L (15-37) L Alanine Aminotransferase (ALT/SGPT) 11 U/L (12-78) L Alkaline Phosphatase 81 U/L (46-116) Total Protein 7.0 G/DL (6.4-8.2) Albumin 2.4 G/DL (3.4-5.0) L Random Vancomycin Level 25.5 ug/mL Microbiology Date/Time Source Procedure Growth Status 11/14/18 15:30 Blood Blood Culture - Preliminary NO GROWTH AFTER 24 HOURS Resulted 11/14/18 14:45 Blood Blood Culture - Preliminary NO GROWTH AFTER 24 HOURS Resulted 11/14/18 14:53 Neck Gram Stain - Final Resulted 11/14/18 14:53 Wound Culture - Preliminary Gram Negative Bacillus 1 Gram Negative Bacillus 2 Gram Positive Cocci Yeast Species Resulted Objective HEAD AND NECK: No JVD.Tracheostomy intact LUNGS: Coarse rhonchi. CARDIOVASCULAR: Regular S1 and S2 with no gallop. Sternotomy is intact Pacemaker in the right subclavian ABDOMEN: Soft. EXTREMITIES: 1+ pitting edema Shivam Sharpe MD Nov 16, 2018 15:36
[2018-11-16 16:00] VITALS: BP 137/60
--- NOTE | 2018-11-16 16:30 | Infectious Diseases Prog Note ---
Assessment/Plan Problems: (1) Fever Assessment & Plan: with mild leukocytosis suspect due to massive recurrent right side pleural effusion with possible pneumonia , continue vancomycin and aztreonam empirically , monitor cultures (2) Thrush, oral Assessment & Plan: continue local nystatin , and iv micafungin to treat him since fluconazole has many interaction with his transplants meds . may need to rule out esophageal sergio since immunocompromised (3) HCV antibody positive Assessment & Plan: no evidence of active infection, with undetectable viral load , suspect due to previous exposure , cleared . (4) Ground glass opacity present on imaging of lung Assessment & Plan: with no evedence of atypical organisms and negative fungal serology( crypt, cocci, histo, and aspergillosis ) and viral PCR for CMV and herpes . monitor clinically for now, S/P right side thoracentesis and fluids to be sent for culture (5) Foot ulcer Assessment & Plan: in diabetic patient , with MRSA , S/P vancomycin treatment with HD for two weeks , pending vascular eval and possible surgical debridement. bone scan ruled out osteomyelitis of the heel . follow up with cash manager (6) DM (diabetes mellitus) Assessment & Plan: recommend tight glycemic control to keep blood glucose between 100-140 (7) CHF (congestive heart failure) Assessment & Plan: on HD , renal is following, monitor daily weight (8) Encephalopathy acute Assessment & Plan: suspect metabolic, with high urea level, waxing and waning . (9) Severe tongue swelling Assessment & Plan: improving initially after steroids , but got worse later, with respiratory compromise , had tracheostomy to protect his airway since respiratory status worsened . now improving, pulmonary is following (10) Pleural effusion Assessment & Plan: recurrent on the right, with lung collapse , S/P thoracentesis with removal of 1.55 cc of clear fluids. culture is negative , fungal is pending , AFB was not done , cytology no malignancy Subjective Constitutional: Reports: no symptoms HEENT: Reports: other - tongue swelling Respiratory: Reports: dry cough Breasts: Reports: no symptoms Cardiovascular: Reports: no symptoms Gastrointestinal/Abdominal: Reports: no symptoms Genitourinary: Reports: no symptoms Neurologic: Reports: weakness Psychiatric: Reports: no symptoms Skin: Reports: ulcer Endocrine: Reports: no symptoms Hematologic: Reports: no symptoms Musculoskeletal: Reports: no symptoms Allergies: Coded Allergies: CEPHALEXIN (Unverified Allergy, Unknown, 02/24/14) SULFAMETHOXAZOLE (Unverified Allergy, Unknown, 02/24/14) TRIMETHOPRIM (Unverified Allergy, Unknown, 02/24/14) Subjective he was feeling ok , has less facial swelling and tongue swelling , was trached emergently due to worsening respiratory failure, awake and responsive, no fever or chills, no significant secretions , no SOB . has less thrush on his tongue Objective Vital Signs Last 24 Hour Vital Signs Date Time Temp Pulse Resp B/P (MAP) Pulse Ox O2 Delivery O2 Flow Rate FiO2 11/16/18 12:00 97.7 91 20 144/99 (114) 95 11/16/18 12:00 90 11/16/18 12:00 12.0 40 11/16/18 12:00 T-piece 12.0 11/16/18 09:00 81 121/42 11/16/18 08:00 81 11/16/18 08:00 12.0 40 11/16/18 08:00 97.6 82 26 121/42 (68) 92 11/16/18 08:00 T-piece 12.0 11/16/18 06:51 T-piece 12.0 40 11/16/18 06:51 98 T-piece 12.0 40 11/16/18 04:00 85 11/16/18 04:00 T-piece 12.0 11/16/18 04:00 12.0 40 11/16/18 04:00 97.4 85 26 121/72 (88) 94 11/16/18 01:45 T-piece 12.0 40 11/16/18 01:45 96 T-piece 12.0 40 11/16/18 00:00 80 11/16/18 00:00 97.9 80 20 111/57 (75) 99 11/16/18 00:00 T-piece 12.0 11/15/18 21:00 78 154/61 11/15/18 20:00 12.0 40 11/15/18 20:00 98.0 78 22 154/61 (92) 96 11/15/18 20:00 T-piece 12.0 11/15/18 20:00 79 11/15/18 19:32 97 T-piece 12.0 40 11/15/18 19:32 T-piece 12.0 40 Height (Feet): 5 Height (Inches): 10.00 Weight (Pounds): 199 General Appearance: WD/WN, no acute distress HEENT: normocephalic, atraumatic, anicteric, mucous membranes moist, PERRL, EOMI, pharynx normal, supple, no JVD, status post trach Respiratory/Chest: chest wall non-tender, no respiratory distress, no accessory muscle use, decreased breath sounds, crackles/rales Cardiovascular: normal peripheral pulses, normal rate, regular rhythm, no gallop/murmur, no JVD Abdomen: normal bowel sounds, soft, non tender, no organomegaly, non distended , no mass, no scars Genitourinary: normal external genitalia Extremities: no cyanosis, no clubbing Skin: no rash, no lesions, ulcers 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: alert, oriented x 3, responsive Lymphatic: no neck adenopathy, no groin adenopathy Musculoskeletal: normal muscle bulk, no effusion Microbiology Date/Time Source Procedure Growth Status 11/14/18 15:30 Blood Blood Culture - Preliminary NO GROWTH AFTER 24 HOURS Resulted 11/14/18 14:45 Blood Blood Culture - Preliminary NO GROWTH AFTER 24 HOURS Resulted 11/14/18 14:53 Neck Gram Stain - Final Resulted 11/14/18 14:53 Wound Culture - Preliminary Gram Negative Bacillus 1 Gram Negative Bacillus 2 Gram Positive Cocci Yeast Species Resulted Laboratory Tests Test 11/16/18 03:30 White Blood Count 9.4 K/UL (4.8-10.8) Red Blood Count 4.94 M/UL (4.70-6.10) Hemoglobin 12.5 G/DL (14.2-18.0) L Hematocrit 40.7 % (42.0-52.0) L Mean Corpuscular Volume 82 FL (80-99) Mean Corpuscular Hemoglobin 25.2 PG (27.0-31.0) L Mean Corpuscular Hemoglobin Concent 30.6 G/DL (32.0-36.0) L Red Cell Distribution Width 17.4 % (11.6-14.8) H Platelet Count 234 K/UL (150-450) Mean Platelet Volume 7.8 FL (6.5-10.1) Neutrophils (%) (Auto) 80.6 % (45.0-75.0) H Lymphocytes (%) (Auto) 9.6 % (20.0-45.0) L Monocytes (%) (Auto) 8.9 % (1.0-10.0) Eosinophils (%) (Auto) 0.0 % (0.0-3.0) Basophils (%) (Auto) 0.9 % (0.0-2.0) Sodium Level 132 MMOL/L (136-145) L Potassium Level 6.1 MMOL/L (3.5-5.1) *H Chloride Level 92 MMOL/L (98-107) L Carbon Dioxide Level 28 MMOL/L (21-32) Anion Gap 12 mmol/L (5-15) Blood Urea Nitrogen 82 mg/dL (7-18) H Creatinine 9.9 MG/DL (0.55-1.30) H Estimat Glomerular Filtration Rate 5.3 mL/min (>60) Glucose Level 155 MG/DL (74-106) H Calcium Level 9.9 MG/DL (8.5-10.1) Phosphorus Level 7.1 MG/DL (2.5-4.9) H Magnesium Level 2.3 MG/DL (1.8-2.4) Total Bilirubin 0.4 MG/DL (0.2-1.0) Direct Bilirubin 0.1 MG/DL (0.0-0.3) Aspartate Amino Transf (AST/SGOT) 14 U/L (15-37) L Alanine Aminotransferase (ALT/SGPT) 11 U/L (12-78) L Alkaline Phosphatase 81 U/L (46-116) Total Protein 7.0 G/DL (6.4-8.2) Albumin 2.4 G/DL (3.4-5.0) L Random Vancomycin Level 25.5 ug/mL Current Medications Medications (Trade) Dose Ordered Sig/Aleks Route PRN Reason Start Time Stop Time Status Last Admin Dose Admin Acetaminophen (Tylenol) 650 mg Q4H PRN NG Mild Pain/Temp > 100.5 11/12/18 19:00 12/12/18 18:47 Acetaminophen/ Hydrocodone Bitart ([place] 5/325) 1 tab Q4H PRN NG Moderate Pain (Pain Scale 4-6) 11/12/18 15:15 11/19/18 15:14 11/14/18 00:28 Aspirin (ASA) 81 mg DAILY NG 11/13/18 09:00 12/13/18 08:59 11/15/18 09:20 Atorvastatin Calcium (Lipitor) 10 mg BEDTIME NG 11/12/18 21:00 12/02/18 20:59 11/14/18 20:23 Aztreonam 0.5 gm/ Dextrose 55 ml @ 110 mls/hr Q12H IVPB 11/14/18 16:30 11/21/18 16:29 11/16/18 16:13 Carvedilol (Coreg) 6.25 mg EVERY 12 HOURS NG 11/12/18 21:00 12/01/18 08:59 11/15/18 09:20 Chlorhexidine Gluconate (Glo-Hex 2%) 1 applic DAILY@1999 TOPIC 11/11/18 20:00 12/08/18 19:59 11/15/18 20:25 Collagenase (Santyl) 1 applic DAILY@2099 TOPIC 11/14/18 21:00 12/14/18 20:59 11/15/18 22:17 Dextrose (Dextrose 50%) 25 ml Q30M PRN IV Hypoglycemia 11/11/18 14:45 11/30/18 22:44 Dextrose (Dextrose 50%) 50 ml Q30M PRN IV Hypoglycemia 11/11/18 14:45 11/30/18 22:44 Docusate Sodium (Colace) 100 mg EVERY 8 HOURS NG 11/12/18 22:00 12/12/18 21:59 11/14/18 05:46 Hydralazine HCl (Apresoline) 10 mg Q6H PRN IV For High Blood Pressure 11/11/18 14:39 12/11/18 14:38 Insulin Aspart (NovoLOG) EVERY 6 HOURS SUBQ 11/12/18 12:00 12/01/18 06:29 11/14/18 23:43 Lansoprazole (Prevacid) 30 mg BID NG 11/11/18 18:00 12/11/18 17:59 11/15/18 09:20 Micafungin Sodium 100 mg/Sodium Chloride 110 ml @ 110 mls/hr Q24H IVPB 11/13/18 18:00 11/20/18 17:59 11/15/18 17:33 Nicotine (Nicoderm) 1 patch Q24H TDERMAL 11/11/18 22:15 12/01/18 22:14 11/15/18 22:24 Nystatin (Nystatin) 5 ml QID ORAL 11/11/18 18:00 11/17/18 17:59 11/15/18 17:29 Olanzapine (ZyPREXA) 2.5 mg BEDTIME NG 11/13/18 21:00 12/13/18 20:59 11/14/18 20:23 Olanzapine (ZyPREXA) 2.5 mg Q6H PRN ORAL agitation 11/15/18 23:00 12/15/18 22:59 Polyethylene Glycol (Miralax) 17 gm DAILYPRN PRN NG Constipation 11/12/18 19:00 12/11/18 15:29 11/13/18 05:30 Sevelamer Carbonate (Renvela) 1,600 mg THREE TIMES A DAY NG 11/11/18 18:00 12/11/18 08:59 11/15/18 09:19 Tacrolimus (Prograf) 2 mg MoWeFr@0000,1200 ORAL 11/13/18 00:00 12/02/18 00:00 11/13/18 12:08 Tacrolimus (Prograf) 2 mg SuTuThSa@0900,2100 ORAL 11/12/18 09:00 12/01/18 20:59 11/15/18 09:20 Vancomycin HCl (Vanco rx to dose) 1 ea DAILY PRN MISC Per rx protocol 11/14/18 14:45 12/14/18 14:44 Fracnois Landis M.D. Nov 16, 2018 16:30
[2018-11-16] MEDS: Micafungin 100 MG in NS 110 ML IVPB SCH ×2 (17:40→18:06)
[2018-11-16 20:00] VITALS: BP 134/90
[2018-11-16] MEDS: Dyna-Hex 2% Top Sol 2oz TOPIC SCH (20:38)
[2018-11-16] MEDS: OLANZapine 2.5mg tab NG SCH (21:00)
--- NOTE | 2018-11-16 21:21 | General Progress Note ---
Assessment/Plan Problem List: (1) Encephalopathy acute ICD Codes: G93.40 - Encephalopathy, unspecified SNOMED: [id number], [id number] Status: stable, progressing Assessment/Plan Zyprexa 2.5mg po qhs Zyprexa prn dc Seroquel Subjective 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: Reports: anxiety Allergies: Coded Allergies: CEPHALEXIN (Unverified Allergy, Unknown, 02/24/14) SULFAMETHOXAZOLE (Unverified Allergy, Unknown, 02/24/14) TRIMETHOPRIM (Unverified Allergy, Unknown, 02/24/14) Subjective the pt is improved Objective Last 24 Hour Vital Signs Date Time Temp Pulse Resp B/P (MAP) Pulse Ox O2 Delivery O2 Flow Rate FiO2 11/16/18 20:00 T-piece 12.0 11/16/18 20:00 89 11/16/18 20:00 12.0 40 11/16/18 20:00 98.2 85 21 134/90 (105) 97 11/16/18 16:00 T-piece 12.0 11/16/18 16:00 98.1 92 20 137/60 (85) 92 11/16/18 16:00 12.0 40 11/16/18 16:00 83 11/16/18 12:00 97.7 91 20 144/99 (114) 95 11/16/18 12:00 90 11/16/18 12:00 12.0 40 11/16/18 12:00 T-piece 12.0 11/16/18 09:00 81 121/42 11/16/18 08:00 81 11/16/18 08:00 12.0 40 11/16/18 08:00 97.6 82 26 121/42 (68) 92 11/16/18 08:00 T-piece 12.0 11/16/18 06:51 T-piece 12.0 40 11/16/18 06:51 98 T-piece 12.0 40 11/16/18 04:00 85 11/16/18 04:00 T-piece 12.0 11/16/18 04:00 12.0 40 11/16/18 04:00 97.4 85 26 121/72 (88) 94 11/16/18 01:45 T-piece 12.0 40 11/16/18 01:45 96 T-piece 12.0 40 11/16/18 00:00 80 11/16/18 00:00 97.9 80 20 111/57 (75) 99 11/16/18 00:00 T-piece 12.0 Intake and Output 11/15/18 11/16/18 18:59 06:59 Intake Total 309 ml Balance 309 ml Free Water 60 ml IV Total 165 ml Tube Feeding 84 ml # Bowel Movements 1 Laboratory Tests 11/16/18 03:30: White Blood Count 9.4, Red Blood Count 4.94, Hemoglobin 12.5L, Hematocrit 40.7L , Mean Corpuscular Volume 82, Mean Corpuscular Hemoglobin 25.2L, Mean Corpuscular Hemoglobin Concent 30.6L, Red Cell Distribution Width 17.4H, Platelet Count 234, Mean Platelet Volume 7.8, Neutrophils (%) (Auto) 80.6H, Lymphocytes (%) (Auto) 9.6L, Monocytes (%) (Auto) 8.9, Eosinophils (%) (Auto) 0.0, Basophils (%) (Auto) 0.9, Sodium Level 132L, Potassium Level 6.1*H, Chloride Level 92L, Carbon Dioxide Level 28, Anion Gap 12, Blood Urea Nitrogen 82H, Creatinine 9.9H, Estimat Glomerular Filtration Rate 5.3, Glucose Level 155H , Calcium Level 9.9, Phosphorus Level 7.1H, Magnesium Level 2.3, Total Bilirubin 0.4, Direct Bilirubin 0.1, Aspartate Amino Transf (AST/SGOT) 14L, Alanine Aminotransferase (ALT/SGPT) 11L, Alkaline Phosphatase 81, Total Protein 7.0, Albumin 2.4L, Random Vancomycin Level 25.5 Height (Feet): 5 Height (Inches): 10.00 Weight (Pounds): 199 General Appearance: no apparent distress, alert Neurologic: oriented x 3, responsive Jeffrey Lala MD Nov 16, 2018 21:21
[2018-11-16] MEDS ORDERED: Morphine Sulfate 2mg/ml Inj(IV/IM USE ONLY) IVP PRN (21:38)
[2018-11-16] MEDS: Morphine Sulfate 2mg/ml Inj(IV/IM USE ONLY) IVP PRN (22:08)
[2018-11-17] VITALS (12 sets, daily range): BP systolic 95–160; BP diastolic 39–78
[2018-11-17] MEDS: Aztreonam Inj 0.5 GM in D5W 55 ML IVPB SCH ×2 (04:25→17:37)
[2018-11-17 05:42] LABS: HEMOGLOBIN 12.5 G/DL (14.2-18.0); MEAN CORPUSCULAR VOLUME 83 FL (80-99); MONOCYTES % (AUTO) 9.5 % (1.0-10.0); NEUTROPHILS % (AUTO) 80.6 % (45.0-75.0); PLATELET COUNT 236 K/UL (150-450); RED BLOOD COUNT 4.93 M/UL (4.70-6.10); RED CELL DISTRIBUTION WIDTH 17.2 % (11.6-14.8); WHITE BLOOD COUNT 8.3 K/UL (4.8-10.8)
[2018-11-17 05:44] LABS: INR 1.1 (0.9-1.1)
[2018-11-17 05:58] LABS: ANION GAP 14 mmol/L (5-15); BLOOD UREA NITROGEN 69 mg/dL (7-18); CALCIUM 9.7 MG/DL (8.5-10.1); CARBON DIOXIDE 29 MMOL/L (21-32); CHLORIDE 95 MMOL/L (98-107); CREATININE 8.7 MG/DL (0.55-1.30); POTASSIUM 5.3 MMOL/L (3.5-5.1); SODIUM 137 MMOL/L (136-145)
[2018-11-17] MEDS: Docusate 100mg/10ml Liq NG SCH ×3 (06:00→21:00)
[2018-11-17] MEDS: NovoLOG Insulin Flexpen SUBQ SCH ×5 (06:00→23:27)
[2018-11-17] MEDS: Nystatin Susp 500,000 units/5ml ORAL SCH ×2 (09:00→13:00)
[2018-11-17] MEDS: Carvedilol 6.25mg Tab NG SCH ×2 (09:00→21:55)
[2018-11-17] MEDS: Renvela 800mg Pkt NG SCH ×3 (09:00→18:00)
[2018-11-17] MEDS: Aspirin Baby 81mg NG SCH (09:00)
--- NOTE | 2018-11-17 10:17 | Cardiac Electrophysiology PN ---
Assessment/Plan Assessment/Plan 1. Troponin elevation. No chest pain. Already revascularized by CABG. Likely due to renal failure. On Coreg 6.25 mg bid, aspirin and Lipitor 2. S/P CABG 3. Nonsustained ventricular tachycardia. The patient has history of prior myocardial infarction and bypass. EF 55%. No Syncope 4. Congestive heart failure. On hemodialysis, per Dr. Stevens. 5. End-stage renal disease, on hemodialysis. 6. Status post right sided Medtronic dual chamber pacemaker with Nl Fx. 7. Right foot ulcer. Antibiotic per Dr. Landis. FU by Dr. Huizar 8. History of liver transplant on Prograf 9. Respiratory failure, ? etiology anaphylaxis. S/P Emergency tracheostomy. Weaned off the vent on T Piece 10. Pleural effusion. LANA Mendoza 11. Dysphagia, PEG pending today DW RN Subjective Subjective On T piece off the vent. Alert in NAD. NPO for PEG today Objective Last 24 Hour Vital Signs Date Time Temp Pulse Resp B/P (MAP) Pulse Ox O2 Delivery O2 Flow Rate FiO2 11/17/18 09:00 87 113/77 11/17/18 08:00 87 11/17/18 08:00 97.7 86 18 113/77 (89) 94 11/17/18 08:00 12.0 40 11/17/18 08:00 T-piece 12.0 11/17/18 07:15 97 T-piece 10.0 35 11/17/18 07:15 T-piece 10.0 35 11/17/18 04:00 12.0 40 11/17/18 04:00 T-piece 12.0 11/17/18 04:00 86 11/17/18 04:00 97.7 85 22 113/73 (86) 97 11/17/18 02:00 97 T-piece 12.0 40 11/17/18 02:00 T-piece 12.0 40 11/17/18 00:00 97.7 81 22 95/75 (82) 96 11/17/18 00:00 T-piece 12.0 11/16/18 21:00 98 T-piece 12.0 40 11/16/18 21:00 89 134/90 11/16/18 20:00 T-piece 12.0 11/16/18 20:00 T-piece 12.0 40 11/16/18 20:00 89 11/16/18 20:00 12.0 40 11/16/18 20:00 98.2 85 21 134/90 (105) 97 11/16/18 16:00 T-piece 12.0 11/16/18 16:00 98.1 92 20 137/60 (85) 92 11/16/18 16:00 12.0 40 11/16/18 16:00 83 11/16/18 12:00 97.7 91 20 144/99 (114) 95 11/16/18 12:00 90 11/16/18 12:00 12.0 40 11/16/18 12:00 T-piece 12.0 Intake and Output 11/16/18 11/17/18 19:00 07:00 Intake Total 55 ml 165 ml Output Total 2000 ml Balance -1945 ml 165 ml IV Total 55 ml 165 ml Hemodialysis UF 2000 ml # Bowel Movements 2 2 Laboratory Tests Test 11/17/18 03:30 White Blood Count 8.3 K/UL (4.8-10.8) Red Blood Count 4.93 M/UL (4.70-6.10) Hemoglobin 12.5 G/DL (14.2-18.0) L Hematocrit 41.0 % (42.0-52.0) L Mean Corpuscular Volume 83 FL (80-99) Mean Corpuscular Hemoglobin 25.5 PG (27.0-31.0) L Mean Corpuscular Hemoglobin Concent 30.6 G/DL (32.0-36.0) L Red Cell Distribution Width 17.2 % (11.6-14.8) H Platelet Count 236 K/UL (150-450) Mean Platelet Volume 7.7 FL (6.5-10.1) Neutrophils (%) (Auto) 80.6 % (45.0-75.0) H Lymphocytes (%) (Auto) 9.0 % (20.0-45.0) L Monocytes (%) (Auto) 9.5 % (1.0-10.0) Eosinophils (%) (Auto) 0.0 % (0.0-3.0) Basophils (%) (Auto) 1.0 % (0.0-2.0) Prothrombin Time 11.9 SEC (9.30-11.50) H Prothromb Time International Ratio 1.1 (0.9-1.1) Activated Partial Thromboplast Time 34 SEC (23-33) H Sodium Level 137 MMOL/L (136-145) Potassium Level 5.3 MMOL/L (3.5-5.1) H Chloride Level 95 MMOL/L (98-107) L Carbon Dioxide Level 29 MMOL/L (21-32) Anion Gap 14 mmol/L (5-15) Blood Urea Nitrogen 69 mg/dL (7-18) H Creatinine 8.7 MG/DL (0.55-1.30) H Estimat Glomerular Filtration Rate 6.1 mL/min (>60) Glucose Level 117 MG/DL (74-106) H Calcium Level 9.7 MG/DL (8.5-10.1) Microbiology Date/Time Source Procedure Growth Status 11/14/18 15:30 Blood Blood Culture - Preliminary NO GROWTH AFTER 48 HOURS Resulted 11/14/18 14:45 Blood Blood Culture - Preliminary NO GROWTH AFTER 48 HOURS Resulted 11/14/18 14:53 Neck Gram Stain - Final Resulted 11/14/18 14:53 Wound Culture - Preliminary Gram Negative Bacillus 1 Gram Negative Bacillus 2 Gram Positive Cocci Yeast Species Resulted Objective HEAD AND NECK: No JVD.Tracheostomy intact LUNGS: Coarse rhonchi. CARDIOVASCULAR: Regular S1 and S2 with no gallop. Sternotomy is intact Pacemaker in the right subclavian ABDOMEN: Soft. EXTREMITIES: 1+ pitting edema Shivam Sharpe MD Nov 17, 2018 10:17
--- NOTE | 2018-11-17 10:21 | General Progress Note ---
Progress Note Progress Note ENT note Fiberopticc exam done today at bedside. He is handling secretions better today than last week. Minimal swelling upper airway and TVF WNL OK to downsize trach. If possible do while he is getting feeding tube today. Alex Man MD Nov 17, 2018 10:21
--- NOTE | 2018-11-17 11:02 | Pulmonology Progress Note ---
Assessment/Plan Assessment/Plan 1. No SVC syndrome on CTA 2. End-stage renal disease, on dialysis, status post multiple upper extremity vascular procedures. 3. Coronary artery bypass surgery. 4. Diabetes. 5. Dysphonia, tongue swelling; s/p trach 6. Resp failure, hypercapneic PLAN: tolerates trach collar tongue less swollen tolerates feeds disc w RN, ENT, surgery thoracentesis for massive R effusion PMV Subjective ROS Limited/Unobtainable: Yes Allergies: Coded Allergies: CEPHALEXIN (Unverified Allergy, Unknown, 02/24/14) SULFAMETHOXAZOLE (Unverified Allergy, Unknown, 02/24/14) TRIMETHOPRIM (Unverified Allergy, Unknown, 02/24/14) Objective Last 24 Hour Vital Signs Date Time Temp Pulse Resp B/P (MAP) Pulse Ox O2 Delivery O2 Flow Rate FiO2 11/17/18 09:00 87 113/77 11/17/18 08:00 87 11/17/18 08:00 97.7 86 18 113/77 (89) 94 11/17/18 08:00 12.0 40 11/17/18 08:00 T-piece 12.0 11/17/18 07:15 97 T-piece 10.0 35 11/17/18 07:15 T-piece 10.0 35 11/17/18 04:00 12.0 40 11/17/18 04:00 T-piece 12.0 11/17/18 04:00 86 11/17/18 04:00 97.7 85 22 113/73 (86) 97 11/17/18 02:00 97 T-piece 12.0 40 11/17/18 02:00 T-piece 12.0 40 11/17/18 00:00 97.7 81 22 95/75 (82) 96 11/17/18 00:00 T-piece 12.0 11/16/18 21:00 98 T-piece 12.0 40 11/16/18 21:00 89 134/90 11/16/18 20:00 T-piece 12.0 11/16/18 20:00 T-piece 12.0 40 11/16/18 20:00 89 11/16/18 20:00 12.0 40 11/16/18 20:00 98.2 85 21 134/90 (105) 97 11/16/18 16:00 T-piece 12.0 11/16/18 16:00 98.1 92 20 137/60 (85) 92 11/16/18 16:00 12.0 40 11/16/18 16:00 83 11/16/18 12:00 97.7 91 20 144/99 (114) 95 11/16/18 12:00 90 11/16/18 12:00 12.0 40 11/16/18 12:00 T-piece 12.0 Intake and Output 11/16/18 11/17/18 19:00 07:00 Intake Total 55 ml 165 ml Output Total 2000 ml Balance -1945 ml 165 ml IV Total 55 ml 165 ml Hemodialysis UF 2000 ml # Bowel Movements 2 2 Objective trach on aerosol General Appearance: no acute distress HEENT: atraumatic Respiratory/Chest: lungs clear, decreased breath sounds Cardiovascular: normal rate Microbiology Date/Time Source Procedure Growth Status 11/14/18 15:30 Blood Blood Culture - Preliminary NO GROWTH AFTER 48 HOURS Resulted 11/14/18 14:45 Blood Blood Culture - Preliminary NO GROWTH AFTER 48 HOURS Resulted 11/14/18 14:53 Neck Gram Stain - Final Resulted 11/14/18 14:53 Wound Culture - Preliminary Gram Negative Bacillus 1 Gram Negative Bacillus 2 Gram Positive Cocci Yeast Species Resulted Laboratory Tests 11/17/18 03:30: White Blood Count 8.3, Red Blood Count 4.93, Hemoglobin 12.5L, Hematocrit 41.0L , Mean Corpuscular Volume 83, Mean Corpuscular Hemoglobin 25.5L, Mean Corpuscular Hemoglobin Concent 30.6L, Red Cell Distribution Width 17.2H, Platelet Count 236, Mean Platelet Volume 7.7, Neutrophils (%) (Auto) 80.6H, Lymphocytes (%) (Auto) 9.0L, Monocytes (%) (Auto) 9.5, Eosinophils (%) (Auto) 0.0, Basophils (%) (Auto) 1.0, Prothrombin Time 11.9H, Prothromb Time International Ratio 1.1, Activated Partial Thromboplast Time 34H, Sodium Level 137, Potassium Level 5.3H, Chloride Level 95L, Carbon Dioxide Level 29, Anion Gap 14, Blood Urea Nitrogen 69H, Creatinine 8.7H, Estimat Glomerular Filtration Rate 6.1, Glucose Level 117H, Calcium Level 9.7 Current Medications Medications (Trade) Dose Ordered Sig/Aleks Route PRN Reason Start Time Stop Time Status Last Admin Dose Admin Acetaminophen (Tylenol) 650 mg Q4H PRN NG Mild Pain/Temp > 100.5 11/12/18 19:00 12/12/18 18:47 Acetaminophen/ Hydrocodone Bitart ([place] 5/325) 1 tab Q4H PRN NG Moderate Pain (Pain Scale 4-6) 11/12/18 15:15 11/19/18 15:14 11/14/18 00:28 Aspirin (ASA) 81 mg DAILY NG 11/13/18 09:00 12/13/18 08:59 11/15/18 09:20 Atorvastatin Calcium (Lipitor) 10 mg BEDTIME NG 11/12/18 21:00 12/02/18 20:59 11/14/18 20:23 Aztreonam 0.5 gm/ Dextrose 55 ml @ 110 mls/hr Q12H IVPB 11/14/18 16:30 11/21/18 16:29 11/17/18 04:25 Carvedilol (Coreg) 6.25 mg EVERY 12 HOURS NG 11/12/18 21:00 12/01/18 08:59 11/15/18 09:20 Chlorhexidine Gluconate (Glo-Hex 2%) 1 applic DAILY@2000 TOPIC 11/11/18 20:00 12/08/18 19:59 11/16/18 20:38 Collagenase (Santyl) 1 applic DAILY@2100 TOPIC 11/14/18 21:00 12/14/18 20:59 11/16/18 22:07 Dextrose (Dextrose 50%) 25 ml Q30M PRN IV Hypoglycemia 11/11/18 14:45 11/30/18 22:44 Dextrose (Dextrose 50%) 50 ml Q30M PRN IV Hypoglycemia 11/11/18 14:45 11/30/18 22:44 Docusate Sodium (Colace) 100 mg EVERY 8 HOURS NG 11/12/18 22:00 12/12/18 21:59 11/14/18 05:46 Hydralazine HCl (Apresoline) 10 mg Q6H PRN IV For High Blood Pressure 11/11/18 14:39 12/11/18 14:38 Insulin Aspart (NovoLOG) EVERY 6 HOURS SUBQ 11/12/18 12:00 12/01/18 06:29 11/14/18 23:43 Lansoprazole (Prevacid) 30 mg BID NG 11/11/18 18:00 12/11/18 17:59 11/15/18 09:20 Micafungin Sodium 100 mg/Sodium Chloride 110 ml @ 110 mls/hr Q24H IVPB 11/13/18 18:00 11/20/18 17:59 11/16/18 18:06 Morphine Sulfate (Morphine Sulfate) 0.5 mg Q4H PRN IVP severe pain(7-10) 11/16/18 21:45 11/23/18 21:37 11/16/18 22:08 Nicotine (Nicoderm) 1 patch Q24H TDERMAL 11/11/18 22:15 12/01/18 22:14 11/16/18 22:07 Nystatin (Nystatin) 5 ml QID ORAL 11/11/18 18:00 11/17/18 17:59 11/15/18 17:29 Olanzapine (ZyPREXA) 2.5 mg BEDTIME NG 11/13/18 21:00 12/13/18 20:59 11/14/18 20:23 Olanzapine (ZyPREXA) 2.5 mg Q6H PRN ORAL agitation 11/15/18 23:00 12/15/18 22:59 Polyethylene Glycol (Miralax) 17 gm DAILYPRN PRN NG Constipation 11/12/18 19:00 12/11/18 15:29 11/13/18 05:30 Sevelamer Carbonate (Renvela) 1,600 mg THREE TIMES A DAY NG 11/11/18 18:00 12/11/18 08:59 11/15/18 09:19 Tacrolimus (Prograf) 2 mg MoWeFr@0000,1200 ORAL 11/13/18 00:00 12/02/18 00:00 11/13/18 12:08 Tacrolimus (Prograf) 2 mg SuTuThSa@0900,2100 ORAL 11/12/18 09:00 12/01/18 20:59 11/15/18 09:20 Vancomycin HCl (Vanco rx to dose) 1 ea DAILY PRN MISC Per rx protocol 11/14/18 14:45 12/14/18 14:44 Saroj Mendoza MD Nov 17, 2018 11:02
[2018-11-17] MEDS: Morphine Sulfate 2mg/ml Inj(IV/IM USE ONLY) IVP PRN (11:53)
--- NOTE | 2018-11-17 12:09 | Pre-Procedure Note/Attestation ---
Pre-Procedure Note/Attestation Complete Prior to Procedure Planned Procedure: not applicable Procedure Narrative: egd/peg Indications for Procedure Pre-Operative Diagnosis: dysphagia Attestation I attest that I discussed the nature of the procedure; its benefits; risks and complications; and alternatives (and the risks and benefits of such alternatives ), prior to the procedure, with the patient (or the patient's legal field support representative). I attest that, if there was a reasonable possibility of needing a blood transfusion, the patient (or the patient's legal field support representative) was given the [facility] standardized written summary, pursuant to the Horacio Louis Blood Safety Act ([place] Health and Safety Code # 1645, as amended). I attest that I re-evaluated the patient just prior to the surgery and that there has been no change in the patient's H&P, except as documented below: Jorge Escalera MD Nov 17, 2018 12:09
[2018-11-17] MEDS ORDERED: LR 1000ml 1,000 ML IVLG SCH (12:18)
--- NOTE | 2018-11-17 12:18 | Anethesia Preoperative Eval ---
Anesthesia Pre-op PMH/ROS General Date of Evaluation: Nov 17, 2018 Anesthesiologist: Shiv ASA Score: ASA 4 Mallampati Score Class I : Soft palate, uvula, fauces, pillars visible Class II: Soft palate, uvula, fauces visible Class III: Soft palate, base of uvula visible Class IV: Only hard plate visible Mallampati Classification: Class III Surgeon: Lali Diagnosis: dysphagia Surgical Procedure: EGD, PEG Anesthesia History: none Family History: no anesthesia problems Allergies: Coded Allergies: CEPHALEXIN (Unverified Allergy, Unknown, 02/24/14) SULFAMETHOXAZOLE (Unverified Allergy, Unknown, 02/24/14) TRIMETHOPRIM (Unverified Allergy, Unknown, 02/24/14) Medications: see eMAR Patient NPO?: Yes NPO Date: Nov 16, 2018 NPO Time: 22:00 Past Medical History Cardiovascular: Reports: HTN, CAD - s/p CABG, [place], arrhythmia - pacemaker in place, other - CHF; Denies: valve dz Pulmonary: Denies: asthma, COPD, CHRISTINA, other Gastrointestinal/Genitourinary: Reports: ESRD; Denies: GERD, CRI, other 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: Reports: dementia; Denies: CVA, depression/anxiety, TIA, other Endocrine: Reports: DM; Denies: hypothyroidism, steroids, other HEENT: Denies: cataract (L), cataract (R), glaucoma, [place]FOR[place]K (L), CHEFORNAK (R), other Hematology/Immune: Reports: anemia - chronic; Denies: DVT, bleeding disorder, other Musculoskeletal/Integumentary: Denies: OA, RA, DJD, DDD, edema, other Other: obesity PSxH Narrative: liver transplant, CABG Anesthesia Pre-op Phys. Exam Physician Exam Last Vital Signs Date Time Temp Pulse Resp B/P (MAP) Pulse Ox O2 Delivery O2 Flow Rate FiO2 11/17/18 09:00 87 113/77 11/17/18 08:00 97.7 18 94 11/17/18 08:00 12.0 40 11/17/18 08:00 T-piece Constitutional: NAD Cardiovascular: RRR Respiratory: other - distant breath sounds, bilateral rhonchi Airway Exam Mallampati Score: Class III MO: limited ROM: limited Anesthesia Pre-op A/P Labs Hematology Test 11/17/18 03:30 White Blood Count 8.3 K/UL (4.8-10.8) Red Blood Count 4.93 M/UL (4.70-6.10) Hemoglobin 12.5 G/DL (14.2-18.0) L Hematocrit 41.0 % (42.0-52.0) L Mean Corpuscular Volume 83 FL (80-99) Mean Corpuscular Hemoglobin 25.5 PG (27.0-31.0) L Mean Corpuscular Hemoglobin Concent 30.6 G/DL (32.0-36.0) L Red Cell Distribution Width 17.2 % (11.6-14.8) H Platelet Count 236 K/UL (150-450) Mean Platelet Volume 7.7 FL (6.5-10.1) Neutrophils (%) (Auto) 80.6 % (45.0-75.0) H Lymphocytes (%) (Auto) 9.0 % (20.0-45.0) L Monocytes (%) (Auto) 9.5 % (1.0-10.0) Eosinophils (%) (Auto) 0.0 % (0.0-3.0) Basophils (%) (Auto) 1.0 % (0.0-2.0) Coagulation Test 11/17/18 03:30 Prothrombin Time 11.9 SEC (9.30-11.50) H Prothromb Time International Ratio 1.1 (0.9-1.1) Activated Partial Thromboplast Time 34 SEC (23-33) H Chemistry Test 11/17/18 03:30 Sodium Level 137 MMOL/L (136-145) Potassium Level 5.3 MMOL/L (3.5-5.1) H Chloride Level 95 MMOL/L (98-107) L Carbon Dioxide Level 29 MMOL/L (21-32) Anion Gap 14 mmol/L (5-15) Blood Urea Nitrogen 69 mg/dL (7-18) H Creatinine 8.7 MG/DL (0.55-1.30) H Estimat Glomerular Filtration Rate 6.1 mL/min (>60) Glucose Level 117 MG/DL (74-106) H Calcium Level 9.7 MG/DL (8.5-10.1) Studies Pre-op Studies: EKG - sr Risk Assessment & Plan Assessment: ASA IV Plan: MAC vs GA Status Change Before Surgery: No Pre-Antibiotics Drug: Ancef 1g Given Within 1 Hr of Incision: Yes Carin Caicedo MD Nov 17, 2018 12:18
[2018-11-17] MEDS ORDERED: DiphenhydrAMINE 50mg/ml Inj IVP PRN (12:30)
[2018-11-17] MEDS ORDERED: NS 500ML IVPB ONE (12:30)
--- NOTE | 2018-11-17 12:41 | Endoscopy Procedure Note ---
Endoscopy Procedure Note General Indication for Procedure: dysphagia Procedures Performed: EGD, PEG Operative Findings/Diagnosis: same Specimen: yes Pt Tolerated Procedure Well: Yes Estimated Blood Loss: none Anesthesia Anesthesiologist: marilu Anesthesia: MAC Inserted Devices Implant(s) used?: No GI Core Measures 50 yrs or older w/o bx or poly: Not Applicable 10yrs. F/U not recommended: Not Applicable Jorge Escalera MD Nov 17, 2018 12:41
[2018-11-17] MEDS ORDERED: Lidocaine 1% MPF 10mg/ml 5ml ONE (13:00)
[2018-11-17] MEDS ORDERED: Propofol 200mg/20ml IV ONE (13:00)
[2018-11-17] MEDS ORDERED: LR 1000ml ONE (13:00)
--- NOTE | 2018-11-17 14:37 | Immediate Post-Op Evaluation ---
Immediate Post-Op Evalulation Immediate Post-Op Evalulation Procedure: EGD and PEG Date of Evaluation: Nov 17, 2018 Time of Evaluation: 13:30 IV Fluids: 200 Blood Products: 0 Estimated Blood Loss: min Urinary Output: 0 Blood Pressure Systolic: 116 Blood Pressure Diastolic: 43 Pulse Rate: 75 Respiratory Rate: 16 O2 Sat by Pulse Oximetry: 100 Temperature (Fahrenheit): 97.8 Pain Score (1-10): 0 Nausea: No Vomiting: No Complications 0 Patient Status: awake, reacts, ventilated - trach in place, none Hydration Status: adequate Carin Caicedo MD Nov 17, 2018 14:37
--- NOTE | 2018-11-17 14:41 | 48 Hour Post Anesthesia Eval ---
Post Anesthesia Evaluation Procedure: EGD and PEG Date of Evaluation: Nov 18, 2018 Airway: other - trach in place, on t-piece Nausea: No Vomiting: No Pain Intensity: 0 Hydration Status: adequate Cardiopulmonary Status: aat baseline Mental Status/LOC: patient returned to baseline Post-Anesthesia Complications: 0 Follow-up care needed: N/A - further care as per primary team Carin Caicedo MD Nov 17, 2018 14:41
--- NOTE | 2018-11-17 14:54 | Pre-Procedure Note/Attestation ---
Pre-Procedure Note/Attestation Complete Prior to Procedure Planned Procedure: right Procedure Narrative: thoracentesis Indications for Procedure Pre-Operative Diagnosis: pleural effusion Attestation I attest that I discussed the nature of the procedure; its benefits; risks and complications; and alternatives (and the risks and benefits of such alternatives ), prior to the procedure, with the patient (or the patient's legal veterans employment representative). I attest that, if there was a reasonable possibility of needing a blood transfusion, the patient (or the patient's legal veterans employment representative) was given the [facility] standardized written summary, pursuant to the Horacio Louis Blood Safety Act ([place] Health and Safety Code # 1645, as amended). I attest that I re-evaluated the patient just prior to the surgery and that there has been no change in the patient's H&P, except as documented below: Discussed with Wesley munoz's. son by phone at [phone] Craig Gonzales MD Nov 17, 2018 14:53
--- NOTE | 2018-11-17 15:22 | Infectious Diseases Prog Note ---
Assessment/Plan Problems: (1) Fever Assessment & Plan: with mild leukocytosis suspect due to massive recurrent right side pleural effusion with possible pneumonia , continue vancomycin and aztreonam empirically , monitor cultures (2) Thrush, oral Assessment & Plan: continue local nystatin , and iv micafungin to treat him since fluconazole has many interaction with his transplants meds . may need to rule out esophageal sergio since immunocompromised (3) HCV antibody positive Assessment & Plan: no evidence of active infection, with undetectable viral load , suspect due to previous infection , cleared, S/P liver transplant . (4) Ground glass opacity present on imaging of lung Assessment & Plan: with no evedence of atypical organisms and negative fungal serology( crypt, cocci, histo, and aspergillosis ) and viral PCR for CMV and herpes . monitor clinically for now, S/P right side thoracentesis and fluids to be sent for culture (5) Foot ulcer Assessment & Plan: in diabetic patient , with MRSA , S/P vancomycin treatment with HD for two weeks , pending vascular eval and possible surgical debridement. bone scan ruled out osteomyelitis of the heel . follow up with terra cotta mold maker (6) DM (diabetes mellitus) Assessment & Plan: recommend tight glycemic control to keep blood glucose between 100-140 (7) CHF (congestive heart failure) Assessment & Plan: on HD , renal is following, monitor daily weight (8) Encephalopathy acute Assessment & Plan: suspect metabolic, with high urea level, waxing and waning . (9) Severe tongue swelling Assessment & Plan: improving initially after steroids , but got worse later, with respiratory compromise , had tracheostomy to protect his airway since respiratory status worsened . now improving, pulmonary is following (10) Pleural effusion Assessment & Plan: recurrent on the right, with lung collapse , S/P thoracentesis with removal of 1.55 cc of clear fluids. culture is negative , fungal is pending , AFB was not done , cytology no malignancy Subjective Constitutional: Reports: no symptoms HEENT: Reports: no symptoms Respiratory: Reports: no symptoms Breasts: Reports: no symptoms Cardiovascular: Reports: no symptoms Gastrointestinal/Abdominal: Reports: no symptoms Genitourinary: Reports: no symptoms Neurologic: Reports: no symptoms Psychiatric: Reports: no symptoms Skin: Reports: no symptoms Endocrine: Reports: no symptoms Hematologic: Reports: no symptoms Musculoskeletal: Reports: no symptoms Allergies: Coded Allergies: CEPHALEXIN (Unverified Allergy, Unknown, 02/24/14) SULFAMETHOXAZOLE (Unverified Allergy, Unknown, 02/24/14) TRIMETHOPRIM (Unverified Allergy, Unknown, 02/24/14) Subjective he was feeling ok , has less facial swelling and tongue swelling , was trached emergently due to worsening respiratory failure, awake and responsive, no fever or chills, no significant secretions , no SOB . has less thrush on his tongue Objective Vital Signs Last 24 Hour Vital Signs Date Time Temp Pulse Resp B/P (MAP) Pulse Ox O2 Delivery O2 Flow Rate FiO2 11/17/18 14:37 75 16 100 11/17/18 14:15 160/45 (83) 11/17/18 13:55 88 21 100/40 100 Mechanical Ventilator 65 11/17/18 13:45 88 19 105/42 100 Mechanical Ventilator 65 11/17/18 13:35 88 19 126/39 100 Mechanical Ventilator 65 11/17/18 13:30 78 17 110/42 100 Mechanical Ventilator 65 11/17/18 13:25 97.0 73 16 116/43 100 Mechanical Ventilator 65 11/17/18 12:00 97.5 86 22 145/49 (81) 95 11/17/18 12:00 45 11/17/18 12:00 T-piece 12.0 11/17/18 11:45 90 11/17/18 09:00 87 113/77 11/17/18 08:00 87 11/17/18 08:00 97.7 86 18 113/77 (89) 94 11/17/18 08:00 12.0 40 11/17/18 08:00 T-piece 12.0 11/17/18 07:15 97 T-piece 10.0 35 11/17/18 07:15 T-piece 10.0 35 11/17/18 04:00 12.0 40 11/17/18 04:00 T-piece 12.0 11/17/18 04:00 86 11/17/18 04:00 97.7 85 22 113/73 (86) 97 11/17/18 02:00 97 T-piece 12.0 40 11/17/18 02:00 T-piece 12.0 40 11/17/18 00:00 97.7 81 22 95/75 (82) 96 11/17/18 00:00 T-piece 12.0 11/16/18 21:00 98 T-piece 12.0 40 11/16/18 21:00 89 134/90 11/16/18 20:00 T-piece 12.0 11/16/18 20:00 T-piece 12.0 40 11/16/18 20:00 89 11/16/18 20:00 12.0 40 11/16/18 20:00 98.2 85 21 134/90 (105) 97 11/16/18 16:00 T-piece 12.0 11/16/18 16:00 98.1 92 20 137/60 (85) 92 11/16/18 16:00 12.0 40 11/16/18 16:00 83 Height (Feet): 5 Height (Inches): 5.00 Weight (Pounds): 199 General Appearance: WD/WN, no acute distress HEENT: normocephalic, atraumatic, anicteric, mucous membranes moist, PERRL, pharynx normal, supple, no JVD, status post trach, thrush, other - tongue swelling Respiratory/Chest: chest wall non-tender, lungs clear, normal breath sounds, no respiratory distress, no accessory muscle use Cardiovascular: normal peripheral pulses, normal rate, regular rhythm, regularly irregular, no gallop/murmur, no JVD Abdomen: normal bowel sounds, soft, non tender, no organomegaly, non distended , no mass, no scars, other - PEG tube in place covered with dressings Genitourinary: normal external genitalia Extremities: no cyanosis, no clubbing Skin: no rash, no lesions, ulcers 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: reinsurance claim analyst 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 normal, no motor/sensory deficits, alert, responsive Lymphatic: no neck adenopathy, no groin adenopathy Musculoskeletal: normal muscle bulk, no effusion Microbiology Date/Time Source Procedure Growth Status 11/14/18 15:30 Blood Blood Culture - Preliminary NO GROWTH AFTER 48 HOURS Resulted Laboratory Tests Test 11/17/18 03:30 White Blood Count 8.3 K/UL (4.8-10.8) Red Blood Count 4.93 M/UL (4.70-6.10) Hemoglobin 12.5 G/DL (14.2-18.0) L Hematocrit 41.0 % (42.0-52.0) L Mean Corpuscular Volume 83 FL (80-99) Mean Corpuscular Hemoglobin 25.5 PG (27.0-31.0) L Mean Corpuscular Hemoglobin Concent 30.6 G/DL (32.0-36.0) L Red Cell Distribution Width 17.2 % (11.6-14.8) H Platelet Count 236 K/UL (150-450) Mean Platelet Volume 7.7 FL (6.5-10.1) Neutrophils (%) (Auto) 80.6 % (45.0-75.0) H Lymphocytes (%) (Auto) 9.0 % (20.0-45.0) L Monocytes (%) (Auto) 9.5 % (1.0-10.0) Eosinophils (%) (Auto) 0.0 % (0.0-3.0) Basophils (%) (Auto) 1.0 % (0.0-2.0) Prothrombin Time 11.9 SEC (9.30-11.50) H Prothromb Time International Ratio 1.1 (0.9-1.1) Activated Partial Thromboplast Time 34 SEC (23-33) H Sodium Level 137 MMOL/L (136-145) Potassium Level 5.3 MMOL/L (3.5-5.1) H Chloride Level 95 MMOL/L (98-107) L Carbon Dioxide Level 29 MMOL/L (21-32) Anion Gap 14 mmol/L (5-15) Blood Urea Nitrogen 69 mg/dL (7-18) H Creatinine 8.7 MG/DL (0.55-1.30) H Estimat Glomerular Filtration Rate 6.1 mL/min (>60) Glucose Level 117 MG/DL (74-106) H Calcium Level 9.7 MG/DL (8.5-10.1) Current Medications Medications (Trade) Dose Ordered Sig/Aleks Route PRN Reason Start Time Stop Time Status Last Admin Dose Admin Acetaminophen (Tylenol) 650 mg Q4H PRN NG Mild Pain/Temp > 100.5 11/12/18 19:00 12/12/18 18:47 Acetaminophen (Tylenol) 650 mg Q4H PRN ORAL Mild Pain (Pain Scale 1-3) 11/17/18 12:30 11/17/18 16:00 Acetaminophen/ Hydrocodone Bitart ([place] 5/325) 1 tab Q4H PRN NG Moderate Pain (Pain Scale 4-6) 11/12/18 15:15 11/19/18 15:14 11/14/18 00:28 Aspirin (ASA) 81 mg DAILY NG 11/13/18 09:00 12/13/18 08:59 11/15/18 09:20 Atorvastatin Calcium (Lipitor) 10 mg BEDTIME NG 11/12/18 21:00 12/02/18 20:59 11/14/18 20:23 Aztreonam 0.5 gm/ Dextrose 55 ml @ 110 mls/hr Q12H IVPB 11/14/18 16:30 11/21/18 16:29 11/17/18 04:25 Carvedilol (Coreg) 6.25 mg EVERY 12 HOURS NG 11/12/18 21:00 12/01/18 08:59 11/15/18 09:20 Chlorhexidine Gluconate (Glo-Hex 2%) 1 applic DAILY@1999 TOPIC 11/11/18 20:00 12/08/18 19:59 11/16/18 20:38 Collagenase (Santyl) 1 applic DAILY@2099 TOPIC 11/14/18 21:00 12/14/18 20:59 11/16/18 22:07 Dextrose (Dextrose 50%) 25 ml Q30M PRN IV Hypoglycemia 11/11/18 14:45 11/30/18 22:44 Dextrose (Dextrose 50%) 50 ml Q30M PRN IV Hypoglycemia 11/11/18 14:45 11/30/18 22:44 Diphenhydramine HCl (Benadryl) 25 mg Q15M PRN IVP Itching 11/17/18 12:30 11/17/18 16:00 Docusate Sodium (Colace) 100 mg EVERY 8 HOURS NG 11/12/18 22:00 12/12/18 21:59 11/14/18 05:46 Hydralazine HCl (Apresoline) 5 mg Q30M PRN IV SBP>160 OR___/DBP>90 OR___ 11/17/18 12:30 11/17/18 16:00 Hydralazine HCl (Apresoline) 10 mg Q6H PRN IV For High Blood Pressure 11/11/18 14:39 12/11/18 14:38 Insulin Aspart (NovoLOG) EVERY 6 HOURS SUBQ 11/12/18 12:00 12/01/18 06:29 11/14/18 23:43 Lactated Ringer's 1,000 ml @ 10 mls/hr Q24H IVLG 11/17/18 12:18 11/17/18 16:00 Lansoprazole (Prevacid) 30 mg BID NG 11/11/18 18:00 12/11/18 17:59 11/15/18 09:20 Micafungin Sodium 100 mg/Sodium Chloride 110 ml @ 110 mls/hr Q24H IVPB 11/13/18 18:00 11/20/18 17:59 11/16/18 18:06 Morphine Sulfate (Morphine Sulfate) 0.5 mg Q4H PRN IVP severe pain(7-10) 11/16/18 21:45 11/23/18 21:37 11/17/18 11:53 Nicotine (Nicoderm) 1 patch Q24H TDERMAL 11/11/18 22:15 12/01/18 22:14 11/16/18 22:07 Nystatin (Nystatin) 5 ml QID ORAL 11/11/18 18:00 11/17/18 17:59 11/15/18 17:29 Olanzapine (ZyPREXA) 2.5 mg BEDTIME NG 11/13/18 21:00 12/13/18 20:59 11/14/18 20:23 Olanzapine (ZyPREXA) 2.5 mg Q6H PRN ORAL agitation 11/15/18 23:00 12/15/18 22:59 Ondansetron HCl (Zofran) 4 mg Q1H PRN IVP Nausea & Vomiting 11/17/18 12:30 11/17/18 16:00 Polyethylene Glycol (Miralax) 17 gm DAILYPRN PRN NG Constipation 11/12/18 19:00 12/11/18 15:29 11/13/18 05:30 Sevelamer Carbonate (Renvela) 1,600 mg THREE TIMES A DAY NG 11/11/18 18:00 12/11/18 08:59 11/15/18 09:19 Tacrolimus (Prograf) 2 mg MoWeFr@0000,1200 ORAL 11/13/18 00:00 12/02/18 00:00 11/13/18 12:08 Tacrolimus (Prograf) 2 mg SuTuThSa@0900,2100 ORAL 11/12/18 09:00 12/01/18 20:59 11/15/18 09:20 Vancomycin HCl (Vanco rx to dose) 1 ea DAILY PRN MISC Per rx protocol 11/14/18 14:45 12/14/18 14:44 Francois Landis M.D. Nov 17, 2018 15:22
--- NOTE | 2018-11-17 15:52 | Brief Operative Note ---
Immediate Post Operative Note Operative Note Pre-op Diagnosis: pleural effusion Procedure: thoracentesis R Post-op Diagnosis: same as pre-op Surgeon: Keegan Aguilar Specimen: none Complications: none Fluids: none Implant(s) used?: No Craig Aguilar MD Nov 17, 2018 15:52
--- NOTE | 2018-11-17 15:59 | Diagnostic Imaging Report ---
Indication: Post thoracentesis Technique: One view of the chest Comparison: November 16, 2018 Findings: Interim complete or near complete resolution of previously demonstrated massive right pleural effusion. No gross pneumothorax demonstrated. Interstitial and airspace edema is again demonstrated bilaterally. The heart is enlarged. Tracheostomy, right chest pacemaker, left atrial appendage clip again demonstrated Impression: Resolved right pleural effusion, post thoracentesis. No radiographically evident complication Other stable findings as noted
--- NOTE | 2018-11-17 16:18 | Diagnostic Imaging Report ---
Indications: Pleural effusion Technique: Procedure performed at bedside. Procedural timeout performed. Ultrasound used to localize optimal puncture site. Sterile prepping and draping right chest. Local anesthesia with 1% lidocaine. Under real-time ultrasound guidance, puncture pleural space using thoracentesis needle. Stylet removed. Catheter placed to vacuum bottle suction. Total 1500 milliliters of fluid aspirated. Patient tolerated procedure well, without immediate complication. Findings: Followup sonography demonstrates some residual pleural fluid remaining but marked decrease in volume Impression: Successful ultrasound-guided thoracentesis, yielding 1500 milliliters of fluid
--- NOTE | 2018-11-17 16:25 | Nephrology Progress Note ---
Assessment/Plan Problem List: (1) ESRD (end stage renal disease) on dialysis (2) Foot ulcer (3) CHF (congestive heart failure) (4) Pacemaker (5) Acute respiratory failure Assessment: with Co2 retention Assessment ESRD with high K and SOB on admit Foot ulcer, likely infected High Troponin likely NSTMI Pacer , Pleural effusion s/p CABGS s/p Liver transplant Plan Now has tracheostomy HD next 11/18- Vanco restarted by ID start tube feeding / due PEG per cardio and ID Podiatry and Vascular surgical fu Subjective ROS Limited/Unobtainable: No Objective Objective Last 24 Hour Vital Signs Date Time Temp Pulse Resp B/P (MAP) Pulse Ox O2 Delivery O2 Flow Rate FiO2 11/17/18 14:37 75 16 100 11/17/18 14:15 160/45 (83) 11/17/18 13:55 88 21 100/40 100 Mechanical Ventilator 65 11/17/18 13:55 65 11/17/18 13:45 88 19 105/42 100 Mechanical Ventilator 65 11/17/18 13:35 88 19 126/39 100 Mechanical Ventilator 65 11/17/18 13:30 78 17 110/42 100 Mechanical Ventilator 65 11/17/18 13:25 97.0 73 16 116/43 100 Mechanical Ventilator 65 11/17/18 13:25 65 11/17/18 12:00 97.5 86 22 145/49 (81) 95 11/17/18 12:00 45 11/17/18 12:00 T-piece 12.0 11/17/18 11:45 90 11/17/18 09:00 87 113/77 11/17/18 08:00 87 11/17/18 08:00 97.7 86 18 113/77 (89) 94 11/17/18 08:00 12.0 40 11/17/18 08:00 T-piece 12.0 11/17/18 07:15 97 T-piece 10.0 35 11/17/18 07:15 T-piece 10.0 35 11/17/18 04:00 12.0 40 11/17/18 04:00 T-piece 12.0 11/17/18 04:00 86 11/17/18 04:00 97.7 85 22 113/73 (86) 97 11/17/18 02:00 97 T-piece 12.0 40 11/17/18 02:00 T-piece 12.0 40 11/17/18 00:00 97.7 81 22 95/75 (82) 96 11/17/18 00:00 T-piece 12.0 11/16/18 21:00 98 T-piece 12.0 40 11/16/18 21:00 89 134/90 11/16/18 20:00 T-piece 12.0 11/16/18 20:00 T-piece 12.0 40 11/16/18 20:00 89 11/16/18 20:00 12.0 40 11/16/18 20:00 98.2 85 21 134/90 (105) 97 Intake and Output 11/16/18 11/17/18 19:00 07:00 Intake Total 55 ml 165 ml Output Total 2000 ml Balance -1945 ml 165 ml IV Total 55 ml 165 ml Hemodialysis UF 2000 ml # Bowel Movements 2 2 Laboratory Tests 11/17/18 03:30: White Blood Count 8.3, Red Blood Count 4.93, Hemoglobin 12.5L, Hematocrit 41.0L , Mean Corpuscular Volume 83, Mean Corpuscular Hemoglobin 25.5L, Mean Corpuscular Hemoglobin Concent 30.6L, Red Cell Distribution Width 17.2H, Platelet Count 236, Mean Platelet Volume 7.7, Neutrophils (%) (Auto) 80.6H, Lymphocytes (%) (Auto) 9.0L, Monocytes (%) (Auto) 9.5, Eosinophils (%) (Auto) 0.0, Basophils (%) (Auto) 1.0, Prothrombin Time 11.9H, Prothromb Time International Ratio 1.1, Activated Partial Thromboplast Time 34H, Sodium Level 137, Potassium Level 5.3H, Chloride Level 95L, Carbon Dioxide Level 29, Anion Gap 14, Blood Urea Nitrogen 69H, Creatinine 8.7H, Estimat Glomerular Filtration Rate 6.1, Glucose Level 117H, Calcium Level 9.7 Height (Feet): 5 Height (Inches): 5.00 Weight (Pounds): 199 General Appearance: no apparent distress EENT: other - trach Cardiovascular: normal rate Respiratory/Chest: decreased breath sounds Abdomen: distended Objective no other change Nakul Stevens MD Nov 17, 2018 16:25
--- NOTE | 2018-11-17 17:30 | Operative Note - Dictated ---
DATE OF OPERATION: 11/17/2018 SURGEON: Alex Man M.D. RECYCLABLE MATERIALS DISTRIBUTOR: None. INDICATION FOR PROCEDURE: Airway obstruction. The patient was emergently intubated and following swallow. PREOPERATIVE DIAGNOSIS: Upper airway swelling. POSTOPERATIVE DIAGNOSIS: Upper airway swelling. FINDINGS: Upper airway swelling. PROCEDURE: Fiberoptic laryngoscopy. TECHNIQUE: Scope was placed through the mouth to look at the vocal cords and the upper airway, which had much fewer secretions than it did last week when I tried to look. He seems to be making progress. Scope was removed. ESTIMATED BLOOD LOSS: Zero. COUNTS: None. DRAINS: None. The patient is awake and alert, and stable before, throughout and after the procedure. Please note, we can start to downsize the trach in him. I know he is having a feeding tube placed today, so maybe they can do it while he is under anesthesia. If not, I will do it later in the week. Alex Man M.D. DR: FAY JOB#: [id number] CC:
[2018-11-17] MEDS: Micafungin 100 MG in NS 110 ML IVPB SCH (18:32)
--- NOTE | 2018-11-17 19:52 | General Progress Note ---
Assessment/Plan Problem List: (1) Encephalopathy acute ICD Codes: G93.40 - Encephalopathy, unspecified SNOMED: 35146348, 311038586 Assessment/Plan Zyprexa 2.5mg po qhs Zyprexa prn the pt lacks capacity Subjective 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: Reports: anxiety, depressed Allergies: Coded Allergies: CEPHALEXIN (Unverified Allergy, Unknown, 02/24/14) SULFAMETHOXAZOLE (Unverified Allergy, Unknown, 02/24/14) TRIMETHOPRIM (Unverified Allergy, Unknown, 02/24/14) Subjective the pt was disoriented non verbal and could not point to numbers nor alphabet when i asked questions the pt is unable to make decisions Objective Last 24 Hour Vital Signs Date Time Temp Pulse Resp B/P (MAP) Pulse Ox O2 Delivery O2 Flow Rate FiO2 11/17/18 19:15 72 19 40 11/17/18 19:14 Mechanical Ventilator 11/17/18 19:14 Mechanical Ventilator 11/17/18 16:59 74 11/17/18 16:45 70 17 40 11/17/18 16:00 45 11/17/18 16:00 T-piece 12.0 11/17/18 16:00 98.4 73 16 130/78 (95) 95 11/17/18 14:45 71 18 40 11/17/18 14:37 75 16 100 11/17/18 14:15 160/45 (83) 11/17/18 13:55 88 21 100/40 100 Mechanical Ventilator 65 11/17/18 13:55 65 11/17/18 13:45 88 19 105/42 100 Mechanical Ventilator 65 11/17/18 13:35 88 19 126/39 100 Mechanical Ventilator 65 11/17/18 13:30 78 17 110/42 100 Mechanical Ventilator 65 11/17/18 13:25 97.0 73 16 116/43 100 Mechanical Ventilator 65 11/17/18 13:25 65 11/17/18 12:00 97.5 86 22 145/49 (81) 95 11/17/18 12:00 45 11/17/18 12:00 T-piece 12.0 11/17/18 11:45 90 11/17/18 09:00 87 113/77 11/17/18 08:00 87 11/17/18 08:00 97.7 86 18 113/77 (89) 94 11/17/18 08:00 40 11/17/18 08:00 T-piece 12.0 11/17/18 07:15 97 T-piece 10.0 35 11/17/18 07:15 T-piece 10.0 35 11/17/18 04:00 12.0 40 11/17/18 04:00 T-piece 12.0 11/17/18 04:00 86 11/17/18 04:00 97.7 85 22 113/73 (86) 97 11/17/18 02:00 97 T-piece 12.0 40 11/17/18 02:00 T-piece 12.0 40 11/17/18 00:00 97.7 81 22 95/75 (82) 96 11/17/18 00:00 T-piece 12.0 11/16/18 21:00 98 T-piece 12.0 40 11/16/18 21:00 89 134/90 11/16/18 20:00 T-piece 12.0 11/16/18 20:00 T-piece 12.0 40 11/16/18 20:00 89 11/16/18 20:00 12.0 40 11/16/18 20:00 98.2 85 21 134/90 (105) 97 Intake and Output 11/16/18 11/17/18 19:00 07:00 Intake Total 55 ml 165 ml Output Total 2000 ml Balance -1945 ml 165 ml IV Total 55 ml 165 ml Hemodialysis UF 2000 ml # Bowel Movements 2 2 Laboratory Tests 11/17/18 03:30: White Blood Count 8.3, Red Blood Count 4.93, Hemoglobin 12.5L, Hematocrit 41.0L , Mean Corpuscular Volume 83, Mean Corpuscular Hemoglobin 25.5L, Mean Corpuscular Hemoglobin Concent 30.6L, Red Cell Distribution Width 17.2H, Platelet Count 236, Mean Platelet Volume 7.7, Neutrophils (%) (Auto) 80.6H, Lymphocytes (%) (Auto) 9.0L, Monocytes (%) (Auto) 9.5, Eosinophils (%) (Auto) 0.0, Basophils (%) (Auto) 1.0, Prothrombin Time 11.9H, Prothromb Time International Ratio 1.1, Activated Partial Thromboplast Time 34H, Sodium Level 137, Potassium Level 5.3H, Chloride Level 95L, Carbon Dioxide Level 29, Anion Gap 14, Blood Urea Nitrogen 69H, Creatinine 8.7H, Estimat Glomerular Filtration Rate 6.1, Glucose Level 117H, Calcium Level 9.7 Height (Feet): 5 Height (Inches): 5.00 Weight (Pounds): 199 General Appearance: WD/WN, no apparent distress, alert, confused Jeffrey Lala MD Nov 17, 2018 19:52
--- NOTE | 2018-11-17 20:00 | Procedure Note ---
DATE OF PROCEDURE: 11/17/2018 SURGEON: Jorge Escalera M.D. REFERRING PHYSICIAN: Darius Carter M.D. PROCEDURE: Upper endoscopy with biopsy and PEG placement. ANESTHESIA: Per Dr. Chaney. INSTRUMENT: Olympus adult flexible upper endoscope. INDICATIONS: 1. Dysphagia. 2. Failed swallow evaluation. 3. Failure to thrive. REASON FOR PROCEDURE: The procedure, risks, benefits, and possible consequences, including hemorrhage, aspiration, perforation and infection, and alternative treatments, were explained to the patient/legal guardian by Dr. Jorge Escalera and the patient/legal guardian understood and accepted these risks. PROCEDURE IN DETAIL: After informed consent was obtained and the patient was adequately sedated, Olympus upper endoscope was advanced from the mouth into the second portion of duodenum and retroflexion was performed in the stomach. The patient had diffuse severe antral gastritis. Biopsy from antrum was obtained. The patient also had evidence of hiatal hernia. Then under endoscopic guidance and under sterile condition, a 20-Faroese pull type of G-tube was successfully placed in the epigastric area. The distance from the tip of the tube to skin was about 2.5 cm in size. The patient tolerated the procedure very well without any complication. SUMMARY OF FINDINGS: 1. Severe antral gastritis, status post biopsy. 2. Status post successful PEG placement. RECOMMENDATIONS: 1. Abdominal binder. 2. Elevate the head of the bed at all times. 3. G-tube flush. 4. G-tube care. 5. Start tube feeding later today. I want to thank Dr. Carter for this kind referral. Jorge Escalera M.D. DR: ARELI JOB#: [id number] CC:
[2018-11-17] MEDS: Dyna-Hex 2% Top Sol 2oz TOPIC SCH (20:17)
[2018-11-17] MEDS: OLANZapine 2.5mg tab NG SCH (20:18)
--- NOTE | 2018-11-17 23:45 | Progress Note ---
DATE: 11/17/2018 SUBJECTIVE: This is a male currently had his EEG and PEG placement. The patient is currently sleeping. OBJECTIVE: VITAL SIGNS: Blood pressure 130/78, pulse 73, no fever. CHEST: Bilaterally clear. CARDIOVASCULAR: Regular rhythm. ABDOMEN: Soft. EXTREMITIES: CCE. LABORATORY DATA: White counts are normal. Hemoglobin 12. Chemistry panel, potassium 5.3, BUN 69, creatinine 0.7. ASSESSMENT: 1. Dysphagia. 2. Chronic respiratory failure. 3. Status angioneurotic edema. 4. End-stage renal disease. PLAN: We will currently continue current treatment. Tube feeding. Jamari Carter M.D. DR: JEFF JOB#: [id number] CC:
[2018-11-18] VITALS: BP 115/78
[2018-11-18] MEDS: Morphine Sulfate 2mg/ml Inj(IV/IM USE ONLY) IVP PRN ×3 (00:01→19:08)
[2018-11-18] MEDS: Aztreonam Inj 0.5 GM in D5W 55 ML IVPB SCH ×2 (03:37→18:19)
[2018-11-18 04:00] VITALS: BP 102/49
[2018-11-18] MEDS: Docusate 100mg/10ml Liq NG SCH ×3 (05:13→21:36)
[2018-11-18] MEDS: NovoLOG Insulin Flexpen SUBQ SCH ×3 (05:14→18:00)
[2018-11-18 05:52] LABS: BASOPHILS % (AUTO) 0.5 % (0.0-2.0); HEMATOCRIT 35.9 % (42.0-52.0); HEMOGLOBIN 10.9 G/DL (14.2-18.0); LYMPHOCYTES % (AUTO) 15.3 % (20.0-45.0); MEAN CORPUSCULAR VOLUME 83 FL (80-99); NEUTROPHILS % (AUTO) 76.2 % (45.0-75.0); PLATELET COUNT 232 K/UL (150-450); RED BLOOD COUNT 4.33 M/UL (4.70-6.10); RED CELL DISTRIBUTION WIDTH 16.7 % (11.6-14.8); WHITE BLOOD COUNT 6.8 K/UL (4.8-10.8)
[2018-11-18 06:01] LABS: ANION GAP 11 mmol/L (5-15); BLOOD UREA NITROGEN 84 mg/dL (7-18); CALCIUM 8.9 MG/DL (8.5-10.1); CARBON DIOXIDE 29 MMOL/L (21-32); CHLORIDE 97 MMOL/L (98-107); CREATININE 9.6 MG/DL (0.55-1.30); POTASSIUM 4.6 MMOL/L (3.5-5.1); SODIUM 137 MMOL/L (136-145)
[2018-11-18 06:07] LABS: ALANINE AMINOTRANSFERASE 13 U/L (12-78); ALBUMIN 2.1 G/DL (3.4-5.0); ALKALINE PHOSPHATASE 100 U/L (46-116); ASPARTATE AMINO TRANSFERASE 15 U/L (15-37); BILIRUBIN,DIRECT 0.2 MG/DL (0.0-0.3); BILIRUBIN,TOTAL 0.4 MG/DL (0.2-1.0); PHOSPHORUS 6.1 MG/DL (2.5-4.9)
[2018-11-18 08:00] VITALS: BP 128/36
[2018-11-18] MEDS: Carvedilol 6.25mg Tab NG SCH ×2 (09:45→21:36)
[2018-11-18] MEDS: Aspirin Baby 81mg NG SCH (09:45)
[2018-11-18] MEDS: Renvela 800mg Pkt NG SCH ×3 (09:46→18:19)
--- NOTE | 2018-11-18 10:03 | Nephrology Progress Note ---
Assessment/Plan Problem List: (1) ESRD (end stage renal disease) on dialysis (2) Foot ulcer (3) CHF (congestive heart failure) (4) Pacemaker (5) Acute respiratory failure Assessment: with Co2 retention Assessment ESRD with high K and SOB on admit Foot ulcer, likely infected High Troponin likely NSTMI Pacer , Pleural effusion s/p CABGS s/p Liver transplant Plan Now has tracheostomy HD next 11/18- Vanco restarted by ID start tube feeding / hasPEG per cardio and ID Podiatry and Vascular surgical fu Subjective ROS Limited/Unobtainable: No Constitutional: Reports: malaise Objective Objective Last 24 Hour Vital Signs Date Time Temp Pulse Resp B/P (MAP) Pulse Ox O2 Delivery O2 Flow Rate FiO2 11/18/18 09:45 68 128/36 11/18/18 08:42 68 18 40 11/18/18 06:58 Mechanical Ventilator 11/18/18 06:58 Mechanical Ventilator 11/18/18 06:58 71 20 40 11/18/18 06:11 98.0 11/18/18 04:56 65 20 40 11/18/18 04:00 98.0 66 22 102/49 (66) 99 11/18/18 04:00 T-piece 12.0 11/18/18 04:00 60 11/18/18 04:00 65 11/18/18 03:09 65 19 40 11/18/18 01:21 84 20 40 11/18/18 00:00 67 11/18/18 00:00 60 11/18/18 00:00 T-piece 12.0 11/18/18 00:00 98.4 71 19 115/78 (90) 100 11/17/18 23:30 73 17 40 11/17/18 21:55 66 101/55 11/17/18 21:18 70 18 40 11/17/18 20:00 72 11/17/18 20:00 60 11/17/18 20:00 T-piece 12.0 11/17/18 20:00 98.1 69 20 101/55 (70) 100 11/17/18 19:15 72 19 40 11/17/18 19:14 Mechanical Ventilator 11/17/18 19:14 Mechanical Ventilator 11/17/18 16:59 74 11/17/18 16:45 70 17 40 11/17/18 16:01 60 11/17/18 16:00 T-piece 12.0 11/17/18 16:00 98.4 73 16 130/78 (95) 95 11/17/18 15:00 60 11/17/18 14:45 71 18 40 11/17/18 14:37 75 16 100 11/17/18 14:15 160/45 (83) 11/17/18 13:55 88 21 100/40 100 Mechanical Ventilator 65 11/17/18 13:55 65 11/17/18 13:45 88 19 105/42 100 Mechanical Ventilator 65 11/17/18 13:35 88 19 126/39 100 Mechanical Ventilator 65 11/17/18 13:30 78 17 110/42 100 Mechanical Ventilator 65 11/17/18 13:25 97.0 73 16 116/43 100 Mechanical Ventilator 65 11/17/18 13:25 65 11/17/18 12:00 97.5 86 22 145/49 (81) 95 11/17/18 12:00 45 11/17/18 12:00 T-piece 12.0 11/17/18 11:45 90 Intake and Output 11/17/18 11/18/18 19:00 07:00 Intake Total 120 ml 380 ml Output Total 1500 ml 0 ml Balance -1380 ml 380 ml Free Water 50 ml IV Total 100 ml 110 ml Tube Feeding 20 ml 220 ml Output Urine Total 0 ml Other 1500 ml # Bowel Movements 4 6 Laboratory Tests 11/18/18 04:00: White Blood Count 6.8, Red Blood Count 4.33L, Hemoglobin 10.9L, Hematocrit 35.9L , Mean Corpuscular Volume 83, Mean Corpuscular Hemoglobin 25.2L, Mean Corpuscular Hemoglobin Concent 30.3L, Red Cell Distribution Width 16.7H, Platelet Count 232, Mean Platelet Volume 8.3, Neutrophils (%) (Auto) 76.2H, Lymphocytes (%) (Auto) 15.3L, Monocytes (%) (Auto) 8.0, Eosinophils (%) (Auto) 0.0, Basophils (%) (Auto) 0.5, Sodium Level 137, Potassium Level 4.6, Chloride Level 97L, Carbon Dioxide Level 29, Anion Gap 11, Blood Urea Nitrogen 84H, Creatinine 9.6H, Estimat Glomerular Filtration Rate 5.5, Glucose Level 96, Calcium Level 8.9, Phosphorus Level 6.1H, Magnesium Level 2.3, Total Bilirubin 0.4, Direct Bilirubin 0.2, Aspartate Amino Transf (AST/SGOT) 15, Alanine Aminotransferase (ALT/SGPT) 13, Alkaline Phosphatase 100, Total Protein 6.0L, Albumin 2.1L, Random Vancomycin Level 21.9 Height (Feet): 5 Height (Inches): 5.00 Weight (Pounds): 198 General Appearance: no apparent distress Cardiovascular: normal rate Respiratory/Chest: decreased breath sounds Abdomen: other - PEG Objective no other change Nakul Stevens MD Nov 18, 2018 10:03
--- NOTE | 2018-11-18 11:18 | General Progress Note ---
Assessment/Plan Problem List: (1) Transplant ICD Codes: Z94.9 - Transplanted organ and tissue status, unspecified SNOMED: 947177032 (2) HTN (hypertension) ICD Codes: I10 - Essential (primary) hypertension SNOMED: 13420748 (3) Pacemaker ICD Codes: Z95.0 - Presence of cardiac pacemaker SNOMED: 109000577 (4) CHF (congestive heart failure) ICD Codes: I50.9 - Heart failure, unspecified SNOMED: 68111743 (5) DM (diabetes mellitus) ICD Codes: E11.9 - Type 2 diabetes mellitus without complications SNOMED: 73866232 (6) Foot ulcer ICD Codes: L97.509 - Non-pressure chronic ulcer of other part of unspecified foot with unspecified severity SNOMED: 52320843 Qualifiers: Qualified Codes: L97.511 - Non-pressure chronic ulcer of other part of right foot limited to breakdown of skin (7) ESRD (end stage renal disease) on dialysis ICD Codes: N18.6 - End stage renal disease; Z99.2 - Dependence on renal dialysis SNOMED: 368391661 Assessment/Plan NGTF HD per nephro fu labs support\ve care Subjective ROS Limited/Unobtainable: No Allergies: Coded Allergies: CEPHALEXIN (Unverified Allergy, Unknown, 02/24/14) SULFAMETHOXAZOLE (Unverified Allergy, Unknown, 02/24/14) TRIMETHOPRIM (Unverified Allergy, Unknown, 02/24/14) Subjective he pulled his NGT again Objective Last 24 Hour Vital Signs Date Time Temp Pulse Resp B/P (MAP) Pulse Ox O2 Delivery O2 Flow Rate FiO2 11/18/18 09:45 68 128/36 11/18/18 08:42 68 18 40 11/18/18 06:58 Mechanical Ventilator 11/18/18 06:58 Mechanical Ventilator 11/18/18 06:58 71 20 40 11/18/18 06:11 98.0 11/18/18 04:56 65 20 40 11/18/18 04:00 98.0 66 22 102/49 (66) 99 11/18/18 04:00 T-piece 12.0 11/18/18 04:00 60 11/18/18 04:00 65 11/18/18 03:09 65 19 40 11/18/18 01:21 84 20 40 11/18/18 00:00 67 4/3/19 00:00 60 11/18/18 00:00 T-piece 12.0 11/18/18 00:00 98.4 71 19 115/78 (90) 100 11/17/18 23:30 73 17 40 11/17/18 21:55 66 101/55 11/17/18 21:18 70 18 40 11/17/18 20:00 72 11/17/18 20:00 60 11/17/18 20:00 T-piece 12.0 11/17/18 20:00 98.1 69 20 101/55 (70) 100 11/17/18 19:15 72 19 40 11/17/18 19:14 Mechanical Ventilator 11/17/18 19:14 Mechanical Ventilator 11/17/18 16:59 74 11/17/18 16:45 70 17 40 11/17/18 16:01 60 11/17/18 16:00 T-piece 12.0 11/17/18 16:00 98.4 73 16 130/78 (95) 95 11/17/18 15:00 60 11/17/18 14:45 71 18 40 11/17/18 14:37 75 16 100 11/17/18 14:15 160/45 (83) 11/17/18 13:55 88 21 100/40 100 Mechanical Ventilator 65 11/17/18 13:55 65 11/17/18 13:45 88 19 105/42 100 Mechanical Ventilator 65 11/17/18 13:35 88 19 126/39 100 Mechanical Ventilator 65 11/17/18 13:30 78 17 110/42 100 Mechanical Ventilator 65 11/17/18 13:25 97.0 73 16 116/43 100 Mechanical Ventilator 65 11/17/18 13:25 65 11/17/18 12:00 97.5 86 22 145/49 (81) 95 11/17/18 12:00 45 11/17/18 12:00 T-piece 12.0 11/17/18 11:45 90 Intake and Output 11/17/18 11/18/18 19:00 07:00 Intake Total 120 ml 380 ml Output Total 1500 ml 0 ml Balance -1380 ml 380 ml Free Water 50 ml IV Total 100 ml 110 ml Tube Feeding 20 ml 220 ml Output Urine Total 0 ml Other 1500 ml # Bowel Movements 4 6 Laboratory Tests 11/18/18 04:00: White Blood Count 6.8, Red Blood Count 4.33L, Hemoglobin 10.9L, Hematocrit 35.9L , Mean Corpuscular Volume 83, Mean Corpuscular Hemoglobin 25.2L, Mean Corpuscular Hemoglobin Concent 30.3L, Red Cell Distribution Width 16.7H, Platelet Count 232, Mean Platelet Volume 8.3, Neutrophils (%) (Auto) 76.2H, Lymphocytes (%) (Auto) 15.3L, Monocytes (%) (Auto) 8.0, Eosinophils (%) (Auto) 0.0, Basophils (%) (Auto) 0.5, Sodium Level 137, Potassium Level 4.6, Chloride Level 97L, Carbon Dioxide Level 29, Anion Gap 11, Blood Urea Nitrogen 84H, Creatinine 9.6H, Estimat Glomerular Filtration Rate 5.5, Glucose Level 96, Calcium Level 8.9, Phosphorus Level 6.1H, Magnesium Level 2.3, Total Bilirubin 0.4, Direct Bilirubin 0.2, Aspartate Amino Transf (AST/SGOT) 15, Alanine Aminotransferase (ALT/SGPT) 13, Alkaline Phosphatase 100, Total Protein 6.0L, Albumin 2.1L, Random Vancomycin Level 21.9 Height (Feet): 5 Height (Inches): 5.00 Weight (Pounds): 198 General Appearance: no apparent distress EENT: normal ENT inspection Neck: supple Cardiovascular: normal rate Respiratory/Chest: decreased breath sounds Abdomen: normal bowel sounds, non tender, soft Extremities: non-tender Jorge Escalera MD Nov 18, 2018 11:18
[2018-11-18 12:00] VITALS: BP 109/49
--- NOTE | 2018-11-18 15:34 | Cardiac Electrophysiology PN ---
Assessment/Plan Assessment/Plan 1. Troponin elevation. No chest pain. Already revascularized by CABG. Likely due to renal failure. On Coreg 6.25 mg bid, aspirin and Lipitor 2. S/P CABG 3. Nonsustained ventricular tachycardia. The patient has history of prior myocardial infarction and bypass. EF 55%. No Syncope 4. Congestive heart failure. On hemodialysis, per Dr. Stevens. 5. End-stage renal disease, on hemodialysis. 6. Status post right sided Medtronic dual chamber pacemaker with Nl Fx. 7. Right foot ulcer. Antibiotic per Dr. Landis. FU by Dr. Huizar 8. History of liver transplant on Prograf 9. Respiratory failure, ? etiology anaphylaxis. S/P Emergency tracheostomy. Weaned off the vent on T Piece 10. Pleural effusion. LANA Mendoza 11. Dysphagia, S/P PEG DW RN and son at bedside Subjective Subjective On T piece off the vent. Alert in NAD. S/P PEG yesterday Objective Last 24 Hour Vital Signs Date Time Temp Pulse Resp B/P (MAP) Pulse Ox O2 Delivery O2 Flow Rate FiO2 11/18/18 14:44 69 20 40 11/18/18 12:52 72 19 40 11/18/18 12:00 60 11/18/18 12:00 98.5 72 17 109/49 (69) 100 11/18/18 12:00 65 11/18/18 12:00 Mechanical Ventilator 11/18/18 10:50 70 18 40 11/18/18 09:45 68 128/36 11/18/18 08:42 68 18 40 11/18/18 08:00 Mechanical Ventilator 11/18/18 08:00 60 11/18/18 08:00 98.2 68 18 128/36 (66) 100 11/18/18 08:00 68 11/18/18 06:58 Mechanical Ventilator 11/18/18 06:58 Mechanical Ventilator 11/18/18 06:58 71 20 40 11/18/18 06:11 98.0 11/18/18 04:56 65 20 40 11/18/18 04:00 98.0 66 22 102/49 (66) 99 11/18/18 04:00 T-piece 12.0 11/18/18 04:00 60 11/18/18 04:00 65 11/18/18 03:09 65 19 40 11/18/18 01:21 84 20 40 11/18/18 00:00 67 11/18/18 00:00 60 11/18/18 00:00 T-piece 12.0 11/18/18 00:00 98.4 71 19 115/78 (90) 100 11/17/18 23:30 73 17 40 11/17/18 21:55 66 101/55 11/17/18 21:18 70 18 40 11/17/18 20:00 72 11/17/18 20:00 60 11/17/18 20:00 T-piece 12.0 11/17/18 20:00 98.1 69 20 101/55 (70) 100 11/17/18 19:15 72 19 40 11/17/18 19:14 Mechanical Ventilator 11/17/18 19:14 Mechanical Ventilator 11/17/18 16:59 74 11/17/18 16:45 70 17 40 11/17/18 16:01 60 11/17/18 16:00 T-piece 12.0 11/17/18 16:00 98.4 73 16 130/78 (95) 95 Intake and Output 11/17/18 11/18/18 19:00 07:00 Intake Total 120 ml 380 ml Output Total 1500 ml 0 ml Balance -1380 ml 380 ml Free Water 50 ml IV Total 100 ml 110 ml Tube Feeding 20 ml 220 ml Output Urine Total 0 ml Other 1500 ml # Bowel Movements 4 6 Laboratory Tests Test 11/18/18 04:00 White Blood Count 6.8 K/UL (4.8-10.8) Red Blood Count 4.33 M/UL (4.70-6.10) L Hemoglobin 10.9 G/DL (14.2-18.0) L Hematocrit 35.9 % (42.0-52.0) L Mean Corpuscular Volume 83 FL (80-99) Mean Corpuscular Hemoglobin 25.2 PG (27.0-31.0) L Mean Corpuscular Hemoglobin Concent 30.3 G/DL (32.0-36.0) L Red Cell Distribution Width 16.7 % (11.6-14.8) H Platelet Count 232 K/UL (150-450) Mean Platelet Volume 8.3 FL (6.5-10.1) Neutrophils (%) (Auto) 76.2 % (45.0-75.0) H Lymphocytes (%) (Auto) 15.3 % (20.0-45.0) L Monocytes (%) (Auto) 8.0 % (1.0-10.0) Eosinophils (%) (Auto) 0.0 % (0.0-3.0) Basophils (%) (Auto) 0.5 % (0.0-2.0) Sodium Level 137 MMOL/L (136-145) Potassium Level 4.6 MMOL/L (3.5-5.1) Chloride Level 97 MMOL/L (98-107) L Carbon Dioxide Level 29 MMOL/L (21-32) Anion Gap 11 mmol/L (5-15) Blood Urea Nitrogen 84 mg/dL (7-18) H Creatinine 9.6 MG/DL (0.55-1.30) H Estimat Glomerular Filtration Rate 5.5 mL/min (>60) Glucose Level 96 MG/DL (74-106) Calcium Level 8.9 MG/DL (8.5-10.1) Phosphorus Level 6.1 MG/DL (2.5-4.9) H Magnesium Level 2.3 MG/DL (1.8-2.4) Total Bilirubin 0.4 MG/DL (0.2-1.0) Direct Bilirubin 0.2 MG/DL (0.0-0.3) Aspartate Amino Transf (AST/SGOT) 15 U/L (15-37) Alanine Aminotransferase (ALT/SGPT) 13 U/L (12-78) Alkaline Phosphatase 100 U/L (46-116) Total Protein 6.0 G/DL (6.4-8.2) L Albumin 2.1 G/DL (3.4-5.0) L Random Vancomycin Level 21.9 ug/mL Objective HEAD AND NECK: No JVD.Tracheostomy intact LUNGS: Coarse rhonchi. CARDIOVASCULAR: Regular S1 and S2 with no gallop. Sternotomy is intact Pacemaker in the right subclavian ABDOMEN: Soft.PEG in place EXTREMITIES: 1+ pitting edema Shivam Sharpe MD Nov 18, 2018 15:34
[2018-11-18 16:00] VITALS: BP 123/52
--- NOTE | 2018-11-18 18:13 | Infectious Diseases Prog Note ---
Assessment/Plan Problems: (1) Fever Assessment & Plan: with mild leukocytosis suspect due to massive recurrent right side pleural effusion with possible pneumonia , S/P repeated thoracentesis , continue vancomycin and aztreonam empirically , monitor cultures (2) Thrush, oral Assessment & Plan: continue local nystatin , and iv micafungin to treat him since fluconazole has many interaction with his transplants meds . may need to rule out esophageal sergio since immunocompromised (3) HCV antibody positive Assessment & Plan: no evidence of active infection, with undetectable viral load , suspect due to previous infection , cleared, S/P liver transplant . (4) Ground glass opacity present on imaging of lung Assessment & Plan: with no evedence of atypical organisms and negative fungal serology( crypt, cocci, histo, and aspergillosis ) and viral PCR for CMV and herpes . monitor clinically for now, S/P right side thoracentesis and fluids to be sent for culture (5) Foot ulcer Assessment & Plan: in diabetic patient , with MRSA , S/P vancomycin treatment with HD for two weeks , pending vascular eval and possible surgical debridement. bone scan ruled out osteomyelitis of the heel . follow up with background check coordinator (6) DM (diabetes mellitus) Assessment & Plan: recommend tight glycemic control to keep blood glucose between 100-140 (7) CHF (congestive heart failure) Assessment & Plan: on HD , renal is following, monitor daily weight (8) Encephalopathy acute Assessment & Plan: suspect metabolic, with high urea level, waxing and waning . (9) Severe tongue swelling Assessment & Plan: improving initially after steroids , but got worse later, with respiratory compromise , had tracheostomy to protect his airway since respiratory status worsened . now improving, pulmonary is following (10) Pleural effusion Assessment & Plan: recurrent on the right, with lung collapse , S/P thoracentesis X2 with removal of 1.5 cc of clear fluids. PREVIOUS culture were negative with negative cytology Subjective Constitutional: Reports: no symptoms HEENT: Reports: no symptoms Respiratory: Reports: no symptoms Breasts: Reports: no symptoms Cardiovascular: Reports: no symptoms Gastrointestinal/Abdominal: Reports: no symptoms Genitourinary: Reports: no symptoms Neurologic: Reports: no symptoms Psychiatric: Reports: no symptoms Skin: Reports: ulcer Endocrine: Reports: no symptoms Hematologic: Reports: no symptoms Musculoskeletal: Reports: no symptoms Allergies: Coded Allergies: CEPHALEXIN (Unverified Allergy, Unknown, 02/24/14) SULFAMETHOXAZOLE (Unverified Allergy, Unknown, 02/24/14) TRIMETHOPRIM (Unverified Allergy, Unknown, 02/24/14) Subjective he was feeling ok , has less facial swelling and tongue swelling , was trached emergently due to worsening respiratory failure, awake and responsive, no fever or chills, no significant secretions , no SOB . has less thrush on his tongue Objective Vital Signs Last 24 Hour Vital Signs Date Time Temp Pulse Resp B/P (MAP) Pulse Ox O2 Delivery O2 Flow Rate FiO2 11/18/18 17:17 67 21 40 11/18/18 14:44 69 20 40 11/18/18 12:52 72 19 40 11/18/18 12:00 60 11/18/18 12:00 98.5 72 17 109/49 (69) 100 11/18/18 12:00 65 11/18/18 12:00 Mechanical Ventilator 11/18/18 10:50 70 18 40 11/18/18 09:45 68 128/36 11/18/18 08:42 68 18 40 11/18/18 08:00 Mechanical Ventilator 11/18/18 08:00 60 11/18/18 08:00 98.2 68 18 128/36 (66) 100 11/18/18 08:00 68 11/18/18 06:58 Mechanical Ventilator 11/18/18 06:58 Mechanical Ventilator 11/18/18 06:58 71 20 40 11/18/18 06:11 98.0 11/18/18 04:56 65 20 40 11/18/18 04:00 98.0 66 22 102/49 (66) 99 11/18/18 04:00 T-piece 12.0 11/18/18 04:00 60 11/18/18 04:00 65 11/18/18 03:09 65 19 40 11/18/18 01:21 84 20 40 11/18/18 00:00 67 11/18/18 00:00 60 11/18/18 00:00 T-piece 12.0 11/18/18 00:00 98.4 71 19 115/78 (90) 100 11/17/18 23:30 73 17 40 11/17/18 21:55 66 101/55 11/17/18 21:18 70 18 40 11/17/18 20:00 72 11/17/18 20:00 60 11/17/18 20:00 T-piece 12.0 11/17/18 20:00 98.1 69 20 101/55 (70) 100 11/17/18 19:15 72 19 40 11/17/18 19:14 Mechanical Ventilator 11/17/18 19:14 Mechanical Ventilator Height (Feet): 5 Height (Inches): 5.00 Weight (Pounds): 198 General Appearance: WD/WN, no acute distress HEENT: normocephalic, atraumatic, anicteric, mucous membranes moist, PERRL, EOMI, pharynx normal, supple, no JVD, status post trach, thrush, other - tongue swelling Respiratory/Chest: chest wall non-tender, lungs clear, normal breath sounds, no respiratory distress, no accessory muscle use Cardiovascular: normal peripheral pulses, normal rate, regular rhythm, no gallop/murmur, no JVD Abdomen: normal bowel sounds, soft, non tender, no organomegaly, non distended , no mass, no scars Genitourinary: normal external genitalia Extremities: no cyanosis, no clubbing Skin: no rash, no lesions, ulcers 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: diagnostic medical sonographer 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 normal, no motor/sensory deficits, alert, oriented x 3, responsive Lymphatic: no neck adenopathy, no groin adenopathy Musculoskeletal: normal muscle bulk, no effusion Laboratory Tests Test 11/18/18 04:00 White Blood Count 6.8 K/UL (4.8-10.8) Red Blood Count 4.33 M/UL (4.70-6.10) L Hemoglobin 10.9 G/DL (14.2-18.0) L Hematocrit 35.9 % (42.0-52.0) L Mean Corpuscular Volume 83 FL (80-99) Mean Corpuscular Hemoglobin 25.2 PG (27.0-31.0) L Mean Corpuscular Hemoglobin Concent 30.3 G/DL (32.0-36.0) L Red Cell Distribution Width 16.7 % (11.6-14.8) H Platelet Count 232 K/UL (150-450) Mean Platelet Volume 8.3 FL (6.5-10.1) Neutrophils (%) (Auto) 76.2 % (45.0-75.0) H Lymphocytes (%) (Auto) 15.3 % (20.0-45.0) L Monocytes (%) (Auto) 8.0 % (1.0-10.0) Eosinophils (%) (Auto) 0.0 % (0.0-3.0) Basophils (%) (Auto) 0.5 % (0.0-2.0) Sodium Level 137 MMOL/L (136-145) Potassium Level 4.6 MMOL/L (3.5-5.1) Chloride Level 97 MMOL/L (98-107) L Carbon Dioxide Level 29 MMOL/L (21-32) Anion Gap 11 mmol/L (5-15) Blood Urea Nitrogen 84 mg/dL (7-18) H Creatinine 9.6 MG/DL (0.55-1.30) H Estimat Glomerular Filtration Rate 5.5 mL/min (>60) Glucose Level 96 MG/DL (74-106) Calcium Level 8.9 MG/DL (8.5-10.1) Phosphorus Level 6.1 MG/DL (2.5-4.9) H Magnesium Level 2.3 MG/DL (1.8-2.4) Total Bilirubin 0.4 MG/DL (0.2-1.0) Direct Bilirubin 0.2 MG/DL (0.0-0.3) Aspartate Amino Transf (AST/SGOT) 15 U/L (15-37) Alanine Aminotransferase (ALT/SGPT) 13 U/L (12-78) Alkaline Phosphatase 100 U/L (46-116) Total Protein 6.0 G/DL (6.4-8.2) L Albumin 2.1 G/DL (3.4-5.0) L Random Vancomycin Level 21.9 ug/mL Current Medications Medications (Trade) Dose Ordered Sig/Aleks Route PRN Reason Start Time Stop Time Status Last Admin Dose Admin Acetaminophen (Tylenol) 650 mg Q4H PRN NG Mild Pain/Temp > 100.5 11/12/18 19:00 12/12/18 18:47 Acetaminophen/ Hydrocodone Bitart ([place] 5/325) 1 tab Q4H PRN NG Moderate Pain (Pain Scale 4-6) 11/12/18 15:15 11/19/18 15:14 11/14/18 00:28 Aspirin (ASA) 81 mg DAILY NG 11/13/18 09:00 12/13/18 08:59 11/18/18 09:45 Atorvastatin Calcium (Lipitor) 10 mg BEDTIME NG 11/12/18 21:00 12/02/18 20:59 11/17/18 20:18 Aztreonam 0.5 gm/ Dextrose 55 ml @ 110 mls/hr Q12H IVPB 11/14/18 16:30 11/21/18 16:29 11/18/18 03:37 Carvedilol (Coreg) 6.25 mg EVERY 12 HOURS NG 11/12/18 21:00 12/01/18 08:59 11/18/18 09:45 Chlorhexidine Gluconate (Glo-Hex 2%) 1 applic DAILY@1999 TOPIC 11/11/18 20:00 12/08/18 19:59 11/17/18 20:17 Collagenase (Santyl) 1 applic DAILY@2099 TOPIC 11/14/18 21:00 12/14/18 20:59 11/17/18 20:17 Dextrose (Dextrose 50%) 25 ml Q30M PRN IV Hypoglycemia 11/11/18 14:45 11/30/18 22:44 Dextrose (Dextrose 50%) 50 ml Q30M PRN IV Hypoglycemia 11/11/18 14:45 11/30/18 22:44 Docusate Sodium (Colace) 100 mg EVERY 8 HOURS NG 11/12/18 22:00 12/12/18 21:59 11/18/18 12:45 Hydralazine HCl (Apresoline) 10 mg Q6H PRN IV For High Blood Pressure 11/11/18 14:39 12/11/18 14:38 Insulin Aspart (NovoLOG) EVERY 6 HOURS SUBQ 11/12/18 12:00 12/01/18 06:29 11/18/18 13:01 Lansoprazole (Prevacid) 30 mg BID NG 11/11/18 18:00 12/11/18 17:59 11/18/18 09:45 Micafungin Sodium 100 mg/Sodium Chloride 110 ml @ 110 mls/hr Q24H IVPB 11/13/18 18:00 11/20/18 17:59 11/17/18 18:32 Morphine Sulfate (Morphine Sulfate) 0.5 mg Q4H PRN IVP severe pain(7-10) 11/16/18 21:45 11/23/18 21:37 11/18/18 05:41 Nicotine (Nicoderm) 1 patch Q24H TDERMAL 11/11/18 22:15 12/01/18 22:14 11/17/18 21:17 Olanzapine (ZyPREXA) 2.5 mg BEDTIME NG 11/13/18 21:00 12/13/18 20:59 11/17/18 20:18 Olanzapine (ZyPREXA) 2.5 mg Q6H PRN ORAL agitation 11/15/18 23:00 12/15/18 22:59 Polyethylene Glycol (Miralax) 17 gm DAILYPRN PRN NG Constipation 11/12/18 19:00 12/11/18 15:29 11/13/18 05:30 Sevelamer Carbonate (Renvela) 1,600 mg THREE TIMES A DAY NG 11/11/18 18:00 12/11/18 08:59 11/18/18 12:45 Tacrolimus (Prograf) 2 mg MoWeFr@0000,1200 ORAL 11/13/18 00:00 12/02/18 00:00 11/18/18 12:45 Tacrolimus (Prograf) 2 mg SuTuThSa@0900,2100 ORAL 11/17/18 21:00 12/17/18 20:59 11/17/18 20:54 Vancomycin HCl (Vanco rx to dose) 1 ea DAILY PRN MISC Per rx protocol 11/14/18 14:45 12/14/18 14:44 Francois Landis M.D. Nov 18, 2018 18:13
[2018-11-18] MEDS: Micafungin 100 MG in NS 110 ML IVPB SCH (18:19)
[2018-11-18 20:00] VITALS: BP 157/85
--- NOTE | 2018-11-18 20:15 | Progress Note ---
DATE: 11/18/2018 SUBJECTIVE: This is a elderly male sitting looks comfortable on ventilator and tolerating tube feeding. OBJECTIVE: VITAL SIGNS: Blood pressure 109/49, pulse 65, respirations 17, temperature is 98.5. CHEST: Bilaterally few crackles. CARDIOVASCULAR: Regular rhythm. ABDOMEN: Soft. EXTREMITIES: CCE. NEUROLOGIC: Generalized weakness LABORATORY AND DIAGNOSTIC DATA: White counts are 6.8, hemoglobin 11, hematocrit 35, and platelets are 232. Chemistry panel, sodium 137, potassium 4.6, BUN 84, creatinine 9.6. ASSESSMENT: 1. Chronic respiratory failure. 2. Sepsis. 3. Encephalopathy is improving. 4. End-stage renal disease. PLAN: 1. We will currently continue morphine. 2. Continue Zyprexa. 3. Continue current treatment. 4. Continue aspirin, tacrolimus, Lipitor. Jamari Carter M.D. DR: Veronica JOB#: [id number] CC:
--- NOTE | 2018-11-18 21:10 | General Progress Note ---
Assessment/Plan Problem List: (1) Encephalopathy acute ICD Codes: G93.40 - Encephalopathy, unspecified SNOMED: 98262086, 386279684 Assessment/Plan Zyprexa 2.5mg po qhs Zyprexa prn the pt lacks capacity Subjective 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: Reports: anxiety, depressed Allergies: Coded Allergies: CEPHALEXIN (Unverified Allergy, Unknown, 02/24/14) SULFAMETHOXAZOLE (Unverified Allergy, Unknown, 02/24/14) TRIMETHOPRIM (Unverified Allergy, Unknown, 02/24/14) Subjective the pt was disoriented non verbal the pt is unable to make decisions Objective Last 24 Hour Vital Signs Date Time Temp Pulse Resp B/P (MAP) Pulse Ox O2 Delivery O2 Flow Rate FiO2 11/18/18 20:00 Mechanical Ventilator 11/18/18 20:00 98.2 71 18 157/85 (109) 100 11/18/18 20:00 60 11/18/18 19:10 100 Mechanical Ventilator 40 11/18/18 19:10 Mechanical Ventilator 40 11/18/18 19:10 68 20 40 11/18/18 17:17 67 21 40 11/18/18 16:00 70 11/18/18 16:00 Mechanical Ventilator 11/18/18 16:00 98.2 75 17 123/52 (75) 100 11/18/18 16:00 60 11/18/18 14:44 69 20 40 11/18/18 12:52 72 19 40 11/18/18 12:00 60 11/18/18 12:00 98.5 72 17 109/49 (69) 100 11/18/18 12:00 65 11/18/18 12:00 Mechanical Ventilator 11/18/18 10:50 70 18 40 11/18/18 09:45 68 128/36 11/18/18 08:42 68 18 40 11/18/18 08:00 Mechanical Ventilator 11/18/18 08:00 60 11/18/18 08:00 98.2 68 18 128/36 (66) 100 11/18/18 08:00 68 11/18/18 06:58 Mechanical Ventilator 11/18/18 06:58 Mechanical Ventilator 11/18/18 06:58 71 20 40 11/18/18 06:11 98.0 11/18/18 04:56 65 20 40 11/18/18 04:00 98.0 66 22 102/49 (66) 99 11/18/18 04:00 T-piece 12.0 11/18/18 04:00 60 11/18/18 04:00 65 11/18/18 03:09 65 19 40 11/18/18 01:21 84 20 40 11/18/18 00:00 67 11/18/18 00:00 60 11/18/18 00:00 T-piece 12.0 11/18/18 00:00 98.4 71 19 115/78 (90) 100 11/17/18 23:30 73 17 40 11/17/18 21:55 66 101/55 11/17/18 21:18 70 18 40 Intake and Output 11/17/18 11/18/18 19:00 07:00 Intake Total 120 ml 380 ml Output Total 1500 ml 0 ml Balance -1380 ml 380 ml Free Water 50 ml IV Total 100 ml 110 ml Tube Feeding 20 ml 220 ml Output Urine Total 0 ml Other 1500 ml # Bowel Movements 4 6 Laboratory Tests 11/18/18 04:00: White Blood Count 6.8, Red Blood Count 4.33L, Hemoglobin 10.9L, Hematocrit 35.9L , Mean Corpuscular Volume 83, Mean Corpuscular Hemoglobin 25.2L, Mean Corpuscular Hemoglobin Concent 30.3L, Red Cell Distribution Width 16.7H, Platelet Count 232, Mean Platelet Volume 8.3, Neutrophils (%) (Auto) 76.2H, Lymphocytes (%) (Auto) 15.3L, Monocytes (%) (Auto) 8.0, Eosinophils (%) (Auto) 0.0, Basophils (%) (Auto) 0.5, Sodium Level 137, Potassium Level 4.6, Chloride Level 97L, Carbon Dioxide Level 29, Anion Gap 11, Blood Urea Nitrogen 84H, Creatinine 9.6H, Estimat Glomerular Filtration Rate 5.5, Glucose Level 96, Calcium Level 8.9, Phosphorus Level 6.1H, Magnesium Level 2.3, Total Bilirubin 0.4, Direct Bilirubin 0.2, Aspartate Amino Transf (AST/SGOT) 15, Alanine Aminotransferase (ALT/SGPT) 13, Alkaline Phosphatase 100, Total Protein 6.0L, Albumin 2.1L, Random Vancomycin Level 21.9 Height (Feet): 5 Height (Inches): 5.00 Weight (Pounds): 198 General Appearance: WD/WN, no apparent distress, alert, confused Jeffrey Lala MD Nov 18, 2018 21:10
[2018-11-18] MEDS: OLANZapine 2.5mg tab NG SCH (21:36)
[2018-11-18] MEDS: Dyna-Hex 2% Top Sol 2oz TOPIC SCH (21:42)
[2018-11-18] MEDS: HYDROcodone/Acetamin 5/325 tab NG PRN (21:50)
[2018-11-19] VITALS: BP 120/76
[2018-11-19] MEDS: NovoLOG Insulin Flexpen SUBQ SCH ×5 (00:01→23:34)
[2018-11-19] MEDS: Morphine Sulfate 2mg/ml Inj(IV/IM USE ONLY) IVP PRN ×3 (01:10→21:26)
[2018-11-19 04:00] VITALS: BP 103/74
[2018-11-19] MEDS: Aztreonam Inj 0.5 GM in D5W 55 ML IVPB SCH ×2 (04:09→18:51)
[2018-11-19] MEDS: Docusate 100mg/10ml Liq NG SCH ×3 (05:12→21:30)
[2018-11-19 08:00] VITALS: BP 128/70
[2018-11-19] MEDS: Renvela 800mg Pkt NG SCH ×4 (09:44→21:27)
[2018-11-19] MEDS: Aspirin Baby 81mg NG SCH (09:44)
[2018-11-19] MEDS: Carvedilol 6.25mg Tab NG SCH (09:44)
--- NOTE | 2018-11-19 10:29 | Nephrology Progress Note ---
Assessment/Plan Problem List: (1) ESRD (end stage renal disease) on dialysis (2) Foot ulcer (3) CHF (congestive heart failure) (4) Pacemaker (5) Acute respiratory failure Assessment: with Co2 retention Assessment ESRD with high K and SOB on admit Foot ulcer, likely infected High Troponin likely NSTMI Pacer , Pleural effusion s/p CABGS s/p Liver transplant Plan Now has tracheostomy HD next 11/20- Vanco restarted by ID start tube feeding / hasPEG per cardio and ID Podiatry and Vascular surgical fu Subjective ROS Limited/Unobtainable: No Objective Objective Last 24 Hour Vital Signs Date Time Temp Pulse Resp B/P (MAP) Pulse Ox O2 Delivery O2 Flow Rate FiO2 11/19/18 09:44 88 134/68 11/19/18 08:52 71 17 40 11/19/18 08:00 Mechanical Ventilator 11/19/18 08:00 60 11/19/18 07:16 100 Mechanical Ventilator 40 11/19/18 07:15 66 22 40 11/19/18 07:14 Mechanical Ventilator 40 11/19/18 05:42 98.2 11/19/18 05:25 71 18 40 11/19/18 04:00 Mechanical Ventilator 11/19/18 04:00 60 11/19/18 04:00 97.8 71 17 103/74 (84) 99 11/19/18 03:27 71 11/19/18 03:15 72 18 40 11/19/18 01:25 73 17 40 11/19/18 00:00 Mechanical Ventilator 11/19/18 00:00 98.4 72 18 120/76 (91) 98 11/18/18 23:25 73 11/18/18 22:45 75 19 40 11/18/18 22:20 98.2 11/18/18 21:36 78 157/85 11/18/18 21:19 78 19 40 11/18/18 20:00 Mechanical Ventilator 11/18/18 20:00 98.2 71 18 157/85 (109) 100 11/18/18 20:00 60 11/18/18 19:10 100 Mechanical Ventilator 40 11/18/18 19:10 Mechanical Ventilator 40 11/18/18 19:10 68 20 40 11/18/18 19:01 67 11/18/18 17:17 67 21 40 11/18/18 16:00 70 11/18/18 16:00 Mechanical Ventilator 11/18/18 16:00 98.2 75 17 123/52 (75) 100 11/18/18 16:00 60 11/18/18 14:44 69 20 40 11/18/18 12:52 72 19 40 11/18/18 12:00 60 11/18/18 12:00 98.5 72 17 109/49 (69) 100 11/18/18 12:00 65 11/18/18 12:00 Mechanical Ventilator 11/18/18 10:50 70 18 40 Intake and Output 11/18/18 11/19/18 19:00 07:00 Intake Total 330 ml 415 ml Output Total 0 ml 0 ml Balance 330 ml 415 ml Free Water 50 ml IV Total 55 ml Tube Feeding 330 ml 310 ml Output Urine Total 0 ml 0 ml Height (Feet): 5 Height (Inches): 5.00 Weight (Pounds): 198 EENT: other - Trach Cardiovascular: normal rate Respiratory/Chest: decreased breath sounds Abdomen: distended, other - PEG Objective no other change Nakul Stevens MD Nov 19, 2018 10:29
[2018-11-19 12:00] VITALS: BP 119/90
--- NOTE | 2018-11-19 14:41 | General Progress Note ---
Assessment/Plan Problem List: (1) Transplant ICD Codes: Z94.9 - Transplanted organ and tissue status, unspecified SNOMED: 756341827 (2) HTN (hypertension) ICD Codes: I10 - Essential (primary) hypertension SNOMED: 41981433 (3) Pacemaker ICD Codes: Z95.0 - Presence of cardiac pacemaker SNOMED: 825469809 (4) CHF (congestive heart failure) ICD Codes: I50.9 - Heart failure, unspecified SNOMED: 80476941 (5) DM (diabetes mellitus) ICD Codes: E11.9 - Type 2 diabetes mellitus without complications SNOMED: 82941831 (6) Foot ulcer ICD Codes: L97.509 - Non-pressure chronic ulcer of other part of unspecified foot with unspecified severity SNOMED: 70351571 Qualifiers: Qualified Codes: L97.511 - Non-pressure chronic ulcer of other part of right foot limited to breakdown of skin (7) ESRD (end stage renal disease) on dialysis ICD Codes: N18.6 - End stage renal disease; Z99.2 - Dependence on renal dialysis SNOMED: 957456739 Assessment/Plan GTF HD per nephro fu labs support\ve care Subjective ROS Limited/Unobtainable: No Allergies: Coded Allergies: CEPHALEXIN (Unverified Allergy, Unknown, 02/24/14) SULFAMETHOXAZOLE (Unverified Allergy, Unknown, 02/24/14) TRIMETHOPRIM (Unverified Allergy, Unknown, 02/24/14) Subjective he pulled his NGT again Objective Last 24 Hour Vital Signs Date Time Temp Pulse Resp B/P (MAP) Pulse Ox O2 Delivery O2 Flow Rate FiO2 11/19/18 12:00 97.8 68 18 119/90 (100) 99 11/19/18 12:00 Mechanical Ventilator 11/19/18 12:00 60 11/19/18 11:44 69 11/19/18 10:39 75 20 40 11/19/18 09:44 88 134/68 11/19/18 08:52 71 17 40 11/19/18 08:00 Mechanical Ventilator 11/19/18 08:00 98.9 71 17 128/70 (89) 99 11/19/18 08:00 69 11/19/18 08:00 60 11/19/18 07:16 100 Mechanical Ventilator 40 11/19/18 07:15 66 22 40 11/19/18 07:14 Mechanical Ventilator 40 11/19/18 05:42 98.2 11/19/18 05:25 71 18 40 11/19/18 04:00 Mechanical Ventilator 11/19/18 04:00 60 11/19/18 04:00 97.8 71 17 103/74 (84) 99 11/19/18 03:27 71 11/19/18 03:15 72 18 40 11/19/18 01:25 73 17 40 11/19/18 00:00 Mechanical Ventilator 11/19/18 00:00 98.4 72 18 120/76 (91) 98 11/18/18 23:25 73 11/18/18 22:45 75 19 40 11/18/18 22:20 98.2 11/18/18 21:36 78 157/85 11/18/18 21:19 78 19 40 11/18/18 20:00 Mechanical Ventilator 11/18/18 20:00 98.2 71 18 157/85 (109) 100 11/18/18 20:00 60 11/18/18 19:10 100 Mechanical Ventilator 40 11/18/18 19:10 Mechanical Ventilator 40 11/18/18 19:10 68 20 40 11/18/18 19:01 67 11/18/18 17:17 67 21 40 11/18/18 16:00 70 11/18/18 16:00 Mechanical Ventilator 11/18/18 16:00 98.2 75 17 123/52 (75) 100 11/18/18 16:00 60 11/18/18 14:44 69 20 40 Intake and Output 11/18/18 11/19/18 19:00 07:00 Intake Total 330 ml 415 ml Output Total 0 ml 0 ml Balance 330 ml 415 ml Free Water 50 ml IV Total 55 ml Tube Feeding 330 ml 310 ml Output Urine Total 0 ml 0 ml Height (Feet): 5 Height (Inches): 5.00 Weight (Pounds): 198 General Appearance: no apparent distress EENT: normal ENT inspection Neck: supple Cardiovascular: normal rate Respiratory/Chest: decreased breath sounds Abdomen: normal bowel sounds, non tender, soft Extremities: non-tender Jorge Escalera MD Nov 19, 2018 14:41
--- NOTE | 2018-11-19 15:57 | Pulmonology Progress Note ---
Assessment/Plan Assessment/Plan 1. No SVC syndrome on CTA 2. End-stage renal disease, on dialysis, status post multiple upper extremity vascular procedures. 3. Coronary artery bypass surgery. 4. Diabetes. 5. Dysphonia, tongue swelling; s/p trach 6. Resp failure, hypercapneic PLAN: tolerates trach collar at times tongue less swollen tolerates feeds disc w RN, REGULATOR TESTER cannot tolerate finger occlusion of trach yet reluctant to change new trach seems ready for LTAC Subjective ROS Limited/Unobtainable: Yes Allergies: Coded Allergies: CEPHALEXIN (Unverified Allergy, Unknown, 02/24/14) SULFAMETHOXAZOLE (Unverified Allergy, Unknown, 02/24/14) TRIMETHOPRIM (Unverified Allergy, Unknown, 02/24/14) Objective Last 24 Hour Vital Signs Date Time Temp Pulse Resp B/P (MAP) Pulse Ox O2 Delivery O2 Flow Rate FiO2 11/19/18 12:00 97.8 68 18 119/90 (100) 99 11/19/18 12:00 Mechanical Ventilator 11/19/18 12:00 60 11/19/18 11:44 69 11/19/18 10:39 75 20 40 11/19/18 09:44 88 134/68 11/19/18 08:52 71 17 40 11/19/18 08:00 Mechanical Ventilator 11/19/18 08:00 98.9 71 17 128/70 (89) 99 11/19/18 08:00 69 11/19/18 08:00 60 11/19/18 07:16 100 Mechanical Ventilator 40 11/19/18 07:15 66 22 40 11/19/18 07:14 Mechanical Ventilator 40 11/19/18 05:42 98.2 11/19/18 05:25 71 18 40 11/19/18 04:00 Mechanical Ventilator 11/19/18 04:00 60 11/19/18 04:00 97.8 71 17 103/74 (84) 99 11/19/18 03:27 71 11/19/18 03:15 72 18 40 11/19/18 01:25 73 17 40 11/19/18 00:00 Mechanical Ventilator 11/19/18 00:00 98.4 72 18 120/76 (91) 98 11/18/18 23:25 73 11/18/18 22:45 75 19 40 4/3/19 22:20 98.2 11/18/18 21:36 78 157/85 11/18/18 21:19 78 19 40 11/18/18 20:00 Mechanical Ventilator 11/18/18 20:00 98.2 71 18 157/85 (109) 100 11/18/18 20:00 60 11/18/18 19:10 100 Mechanical Ventilator 40 11/18/18 19:10 Mechanical Ventilator 40 11/18/18 19:10 68 20 40 11/18/18 19:01 67 11/18/18 17:17 67 21 40 11/18/18 16:00 70 11/18/18 16:00 Mechanical Ventilator 11/18/18 16:00 98.2 75 17 123/52 (75) 100 11/18/18 16:00 60 Intake and Output 11/18/18 11/19/18 19:00 07:00 Intake Total 330 ml 415 ml Output Total 0 ml 0 ml Balance 330 ml 415 ml Free Water 50 ml IV Total 55 ml Tube Feeding 330 ml 310 ml Output Urine Total 0 ml 0 ml Objective trach on vent General Appearance: no acute distress HEENT: atraumatic Respiratory/Chest: lungs clear Cardiovascular: normal rate Abdomen: soft, non tender Current Medications Medications (Trade) Dose Ordered Sig/Aleks Route PRN Reason Start Time Stop Time Status Last Admin Dose Admin Acetaminophen (Tylenol) 650 mg Q4H PRN NG Mild Pain/Temp > 100.5 11/12/18 19:00 12/12/18 18:47 Aspirin (ASA) 81 mg DAILY NG 11/13/18 09:00 12/13/18 08:59 11/19/18 09:44 Atorvastatin Calcium (Lipitor) 10 mg BEDTIME NG 11/12/18 21:00 12/02/18 20:59 11/18/18 21:36 Aztreonam 0.5 gm/ Dextrose 55 ml @ 110 mls/hr Q12H IVPB 11/14/18 16:30 11/21/18 16:29 11/19/18 04:09 Carvedilol (Coreg) 6.25 mg EVERY 12 HOURS NG 11/12/18 21:00 12/01/18 08:59 11/19/18 09:44 Chlorhexidine Gluconate (Glo-Hex 2%) 1 applic DAILY@2000 TOPIC 11/11/18 20:00 12/08/18 19:59 11/18/18 21:42 Collagenase (Santyl) 1 applic DAILY@2100 TOPIC 11/14/18 21:00 12/14/18 20:59 11/18/18 21:37 Dextrose (Dextrose 50%) 25 ml Q30M PRN IV Hypoglycemia 11/11/18 14:45 11/30/18 22:44 Dextrose (Dextrose 50%) 50 ml Q30M PRN IV Hypoglycemia 11/11/18 14:45 11/30/18 22:44 Docusate Sodium (Colace) 100 mg EVERY 8 HOURS NG 11/12/18 22:00 12/12/18 21:59 11/19/18 14:20 Hydralazine HCl (Apresoline) 10 mg Q6H PRN IV For High Blood Pressure 11/11/18 14:39 12/11/18 14:38 Insulin Aspart (NovoLOG) EVERY 6 HOURS SUBQ 11/12/18 12:00 12/01/18 06:29 11/19/18 14:19 Lansoprazole (Prevacid) 30 mg BID NG 11/11/18 18:00 12/11/18 17:59 11/19/18 09:44 Micafungin Sodium 100 mg/Sodium Chloride 110 ml @ 110 mls/hr Q24H IVPB 11/13/18 18:00 11/24/18 17:59 11/18/18 18:19 Morphine Sulfate (Morphine Sulfate) 0.5 mg Q4H PRN IVP severe pain(7-10) 11/16/18 21:45 11/23/18 21:37 11/19/18 05:12 Nicotine (Nicoderm) 1 patch Q24H TDERMAL 11/11/18 22:15 12/01/18 22:14 11/18/18 21:36 Olanzapine (ZyPREXA) 2.5 mg BEDTIME NG 11/13/18 21:00 12/13/18 20:59 11/18/18 21:36 Olanzapine (ZyPREXA) 2.5 mg Q6H PRN ORAL agitation 11/15/18 23:00 12/15/18 22:59 Polyethylene Glycol (Miralax) 17 gm DAILYPRN PRN NG Constipation 11/12/18 19:00 12/11/18 15:29 11/13/18 05:30 Sevelamer Carbonate (Renvela) 1,600 mg THREE TIMES A DAY NG 11/11/18 18:00 12/11/18 08:59 11/19/18 14:21 Tacrolimus (Prograf) 2 mg MoWeFr@0000,1200 ORAL 11/13/18 00:00 12/02/18 00:00 11/18/18 12:45 Tacrolimus (Prograf) 2 mg SuTuThSa@0900,2100 ORAL 11/17/18 21:00 12/17/18 20:59 11/19/18 09:47 Vancomycin HCl (Vanco rx to dose) 1 ea DAILY PRN MISC Per rx protocol 11/14/18 14:45 12/14/18 14:44 Saroj Mendoza MD Nov 19, 2018 15:57
[2018-11-19 16:00] VITALS: BP 109/51
--- NOTE | 2018-11-19 16:57 | Cardiac Electrophysiology PN ---
Assessment/Plan Assessment/Plan 1. Troponin elevation. No chest pain. Already revascularized by CABG. Due to renal failure. On Coreg 6.25 mg bid, aspirin and Lipitor 2. S/P CABG 3. Nonsustained ventricular tachycardia. The patient has history of prior myocardial infarction and CABG. EF 55%. No Syncope 4. Congestive heart failure. On hemodialysis 5. End-stage renal disease, on hemodialysis per Dr. Stevens 6. Status post right sided [employer] dual chamber pacemaker with Nl Fx. 7. Right foot ulcer. Antibiotic per Dr. Landis. FU by Dr. Huizar 8. History of liver transplant on Prograf 9. Respiratory failure, ? etiology anaphylaxis. S/P Emergency tracheostomy. Weaned off the vent on T Piece 10. Pleural effusion. LANA Mendoza 11. Dysphagia, S/P PEG DW RN at bedside Subjective Subjective On the vent vi tracheostomy. Alert in NAD. S/P PEG. RN at bedside Objective Last 24 Hour Vital Signs Date Time Temp Pulse Resp B/P (MAP) Pulse Ox O2 Delivery O2 Flow Rate FiO2 11/19/18 16:00 60 11/19/18 16:00 98.1 73 16 109/51 (70) 99 11/19/18 16:00 Mechanical Ventilator 11/19/18 15:24 81 29 40 11/19/18 12:00 97.8 68 18 119/90 (100) 99 11/19/18 12:00 Mechanical Ventilator 11/19/18 12:00 60 11/19/18 11:44 69 11/19/18 10:39 75 20 40 11/19/18 09:44 88 134/68 11/19/18 08:52 71 17 40 11/19/18 08:00 Mechanical Ventilator 11/19/18 08:00 98.9 71 17 128/70 (89) 99 11/19/18 08:00 69 11/19/18 08:00 60 11/19/18 07:16 100 Mechanical Ventilator 40 11/19/18 07:15 66 22 40 11/19/18 07:14 Mechanical Ventilator 40 11/19/18 05:42 98.2 11/19/18 05:25 71 18 40 11/19/18 04:00 Mechanical Ventilator 11/19/18 04:00 60 11/19/18 04:00 97.8 71 17 103/74 (84) 99 11/19/18 03:27 71 11/19/18 03:15 72 18 40 11/19/18 01:25 73 17 40 11/19/18 00:00 Mechanical Ventilator 11/19/18 00:00 98.4 72 18 120/76 (91) 98 11/18/18 23:25 73 11/18/18 22:45 75 19 40 11/18/18 22:20 98.2 11/18/18 21:36 78 157/85 11/18/18 21:19 78 19 40 11/18/18 20:00 Mechanical Ventilator 11/18/18 20:00 98.2 71 18 157/85 (109) 100 11/18/18 20:00 60 11/18/18 19:10 100 Mechanical Ventilator 40 11/18/18 19:10 Mechanical Ventilator 40 11/18/18 19:10 68 20 40 11/18/18 19:01 67 11/18/18 17:17 67 21 40 Intake and Output 11/18/18 11/19/18 19:00 07:00 Intake Total 330 ml 415 ml Output Total 0 ml 0 ml Balance 330 ml 415 ml Free Water 50 ml IV Total 55 ml Tube Feeding 330 ml 310 ml Output Urine Total 0 ml 0 ml Objective HEAD AND NECK: No JVD.Tracheostomy intact LUNGS: Coarse rhonchi. CARDIOVASCULAR: Regular S1 and S2 with no gallop. Sternotomy is intact Pacemaker in the right subclavian ABDOMEN: Soft.PEG in place EXTREMITIES: 1+ pitting edema Shivam Sharpe MD Nov 19, 2018 16:57
--- NOTE | 2018-11-19 18:14 | Infectious Diseases Prog Note ---
Assessment/Plan Problems: (1) Fever Assessment & Plan: with mild leukocytosis suspect due to massive recurrent right side pleural effusion with possible pneumonia , S/P repeated thoracentesis with removal of 1.5 liter of fluids , continue vancomycin and aztreonam empirically for 8 days , monitor cultures (2) Thrush, oral Assessment & Plan: continue local nystatin , and iv micafungin to treat him since fluconazole has many interaction with his transplants meds . may need to rule out esophageal sergio since immunocompromised (3) HCV antibody positive Assessment & Plan: no evidence of active infection, with undetectable viral load , suspect due to previous infection , cleared, S/P liver transplant . (4) Foot ulcer Assessment & Plan: in diabetic patient , with MRSA , S/P vancomycin treatment with HD for two weeks , pending vascular eval and possible surgical debridement. bone scan ruled out osteomyelitis of the heel . follow up with data communications software consultant (5) DM (diabetes mellitus) Assessment & Plan: recommend tight glycemic control to keep blood glucose between 100-140 (6) CHF (congestive heart failure) Assessment & Plan: on HD , renal is following, monitor daily weight (7) Encephalopathy acute Assessment & Plan: suspect metabolic, with high urea level, waxing and waning , now improved (8) Severe tongue swelling Assessment & Plan: improving initially after steroids , but got worse later, with respiratory compromise , had tracheostomy to protect his airway since respiratory status worsened . now improving, pulmonary is following (9) Pleural effusion Assessment & Plan: recurrent on the right, with lung collapse , S/P thoracentesis X2 with removal of 1.5 cc of clear fluids. PREVIOUS culture were negative with negative cytology Subjective Constitutional: Reports: no symptoms HEENT: Reports: dysphagia, congestion Respiratory: Reports: no symptoms Breasts: Reports: no symptoms Cardiovascular: Reports: no symptoms Gastrointestinal/Abdominal: Reports: no symptoms Genitourinary: Reports: no symptoms Neurologic: Reports: no symptoms Psychiatric: Reports: no symptoms Skin: Reports: ulcer Endocrine: Reports: no symptoms Hematologic: Reports: no symptoms Musculoskeletal: Reports: no symptoms Allergies: Coded Allergies: CEPHALEXIN (Unverified Allergy, Unknown, 02/24/14) SULFAMETHOXAZOLE (Unverified Allergy, Unknown, 02/24/14) TRIMETHOPRIM (Unverified Allergy, Unknown, 02/24/14) Subjective he was feeling good , has less facial swelling and tongue swelling , awake and responsive, no fever or chills, no significant secretions , no SOB . has less thrush on his tongue Objective Vital Signs Last 24 Hour Vital Signs Date Time Temp Pulse Resp B/P (MAP) Pulse Ox O2 Delivery O2 Flow Rate FiO2 11/19/18 17:02 69 25 40 11/19/18 16:00 76 11/19/18 16:00 60 11/19/18 16:00 98.1 73 16 109/51 (70) 99 11/19/18 16:00 Mechanical Ventilator 11/19/18 15:24 81 29 40 11/19/18 12:00 97.8 68 18 119/90 (100) 99 11/19/18 12:00 Mechanical Ventilator 11/19/18 12:00 60 11/19/18 11:44 69 11/19/18 10:39 75 20 40 11/19/18 09:44 88 134/68 11/19/18 08:52 71 17 40 11/19/18 08:00 Mechanical Ventilator 11/19/18 08:00 98.9 71 17 128/70 (89) 99 11/19/18 08:00 69 11/19/18 08:00 60 11/19/18 07:16 100 Mechanical Ventilator 40 11/19/18 07:15 66 22 40 11/19/18 07:14 Mechanical Ventilator 40 11/19/18 05:42 98.2 11/19/18 05:25 71 18 40 11/19/18 04:00 Mechanical Ventilator 11/19/18 04:00 60 11/19/18 04:00 97.8 71 17 103/74 (84) 99 11/19/18 03:27 71 11/19/18 03:15 72 18 40 11/19/18 01:25 73 17 40 11/19/18 00:00 Mechanical Ventilator 11/19/18 00:00 98.4 72 18 120/76 (91) 98 11/18/18 23:25 73 11/18/18 22:45 75 19 40 11/18/18 22:20 98.2 11/18/18 21:36 78 157/85 11/18/18 21:19 78 19 40 11/18/18 20:00 Mechanical Ventilator 11/18/18 20:00 98.2 71 18 157/85 (109) 100 11/18/18 20:00 60 11/18/18 19:10 100 Mechanical Ventilator 40 11/18/18 19:10 Mechanical Ventilator 40 11/18/18 19:10 68 20 40 11/18/18 19:01 67 Height (Feet): 5 Height (Inches): 5.00 Weight (Pounds): 198 General Appearance: WD/WN, no acute distress HEENT: normocephalic, atraumatic, anicteric, mucous membranes moist, PERRL, supple, no JVD, status post trach, thrush, other - tongue swelling Respiratory/Chest: chest wall non-tender, no respiratory distress, no accessory muscle use, decreased breath sounds, crackles/rales Cardiovascular: normal peripheral pulses, normal rate, regular rhythm, no gallop/murmur, no JVD Abdomen: normal bowel sounds, soft, non tender, no organomegaly, non distended , no mass, no scars Genitourinary: normal external genitalia Extremities: no cyanosis, no clubbing Skin: no rash, no lesions, ulcers 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: hand compositor 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 normal, no motor/sensory deficits, alert, oriented x 3, responsive Lymphatic: no neck adenopathy, no groin adenopathy Musculoskeletal: normal muscle bulk, no effusion Current Medications Medications (Trade) Dose Ordered Sig/Aleks Route PRN Reason Start Time Stop Time Status Last Admin Dose Admin Acetaminophen (Tylenol) 650 mg Q4H PRN NG Mild Pain/Temp > 100.5 11/12/18 19:00 12/12/18 18:47 Aspirin (ASA) 81 mg DAILY NG 11/13/18 09:00 12/13/18 08:59 11/19/18 09:44 Atorvastatin Calcium (Lipitor) 10 mg BEDTIME NG 11/12/18 21:00 12/02/18 20:59 11/18/18 21:36 Aztreonam 0.5 gm/ Dextrose 55 ml @ 110 mls/hr Q12H IVPB 11/14/18 16:30 11/21/18 16:29 11/19/18 04:09 Carvedilol (Coreg) 6.25 mg EVERY 12 HOURS NG 11/12/18 21:00 12/01/18 08:59 11/19/18 09:44 Chlorhexidine Gluconate (Glo-Hex 2%) 1 applic DAILY@2000 TOPIC 11/11/18 20:00 12/08/18 19:59 11/18/18 21:42 Collagenase (Santyl) 1 applic DAILY@2099 TOPIC 11/14/18 21:00 12/14/18 20:59 11/18/18 21:37 Dextrose (Dextrose 50%) 25 ml Q30M PRN IV Hypoglycemia 11/11/18 14:45 11/30/18 22:44 Dextrose (Dextrose 50%) 50 ml Q30M PRN IV Hypoglycemia 11/11/18 14:45 11/30/18 22:44 Docusate Sodium (Colace) 100 mg EVERY 8 HOURS NG 11/12/18 22:00 12/12/18 21:59 11/19/18 14:20 Hydralazine HCl (Apresoline) 10 mg Q6H PRN IV For High Blood Pressure 11/11/18 14:39 12/11/18 14:38 Insulin Aspart (NovoLOG) EVERY 6 HOURS SUBQ 11/12/18 12:00 12/01/18 06:29 11/19/18 14:19 Lansoprazole (Prevacid) 30 mg BID NG 11/11/18 18:00 12/11/18 17:59 11/19/18 09:44 Micafungin Sodium 100 mg/Sodium Chloride 110 ml @ 110 mls/hr Q24H IVPB 11/13/18 18:00 11/24/18 17:59 11/18/18 18:19 Morphine Sulfate (Morphine Sulfate) 0.5 mg Q4H PRN IVP severe pain(7-10) 11/16/18 21:45 11/23/18 21:37 11/19/18 05:12 Nicotine (Nicoderm) 1 patch Q24H TDERMAL 11/11/18 22:15 12/01/18 22:14 11/18/18 21:36 Olanzapine (ZyPREXA) 2.5 mg BEDTIME NG 11/13/18 21:00 12/13/18 20:59 11/18/18 21:36 Olanzapine (ZyPREXA) 2.5 mg Q6H PRN ORAL agitation 11/15/18 23:00 12/15/18 22:59 Polyethylene Glycol (Miralax) 17 gm DAILYPRN PRN NG Constipation 11/12/18 19:00 12/11/18 15:29 11/13/18 05:30 Sevelamer Carbonate (Renvela) 1,600 mg THREE TIMES A DAY NG 11/11/18 18:00 12/11/18 08:59 11/19/18 14:21 Tacrolimus (Prograf) 2 mg MoWeFr@0000,1200 ORAL 11/13/18 00:00 12/02/18 00:00 11/18/18 12:45 Tacrolimus (Prograf) 2 mg SuTuThSa@0900,2100 ORAL 11/17/18 21:00 12/17/18 20:59 11/19/18 09:47 Vancomycin HCl (Vanco rx to dose) 1 ea DAILY PRN MISC Per rx protocol 11/14/18 14:45 12/14/18 14:44 Francois Landis M.D. Nov 19, 2018 18:13
[2018-11-19] MEDS: Micafungin 100 MG in NS 110 ML IVPB SCH (18:33)
[2018-11-19 20:00] VITALS: BP 125/53
[2018-11-19] MEDS: Dyna-Hex 2% Top Sol 2oz TOPIC SCH (20:10)
[2018-11-19] MEDS: OLANZapine 2.5mg tab NG SCH (20:12)
--- NOTE | 2018-11-19 22:16 | General Progress Note ---
Assessment/Plan Problem List: (1) Encephalopathy acute ICD Codes: G93.40 - Encephalopathy, unspecified SNOMED: [id number], [id number] Assessment/Plan Zyprexa 2.5mg po qhs Zyprexa prn the pt lacks capacity Subjective 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: Reports: anxiety, depressed, emotional problems Allergies: Coded Allergies: CEPHALEXIN (Unverified Allergy, Unknown, 02/24/14) SULFAMETHOXAZOLE (Unverified Allergy, Unknown, 02/24/14) TRIMETHOPRIM (Unverified Allergy, Unknown, 02/24/14) Subjective the pt was disoriented non verbal the pt is unable to make decisions anxious Objective Last 24 Hour Vital Signs Date Time Temp Pulse Resp B/P (MAP) Pulse Ox O2 Delivery O2 Flow Rate FiO2 11/19/18 22:00 67 18 40 11/19/18 20:00 98.0 67 17 125/53 (77) 100 11/19/18 20:00 60 11/19/18 20:00 Mechanical Ventilator 11/19/18 19:03 67 11/19/18 19:01 100 Mechanical Ventilator 40 11/19/18 19:01 Mechanical Ventilator 40 11/19/18 19:00 68 21 40 11/19/18 17:02 69 25 40 11/19/18 16:00 76 11/19/18 16:00 60 11/19/18 16:00 98.1 73 16 109/51 (70) 99 11/19/18 16:00 Mechanical Ventilator 11/19/18 15:24 81 29 40 11/19/18 12:00 97.8 68 18 119/90 (100) 99 11/19/18 12:00 Mechanical Ventilator 11/19/18 12:00 60 11/19/18 11:44 69 11/19/18 10:39 75 20 40 11/19/18 09:44 88 134/68 11/19/18 08:52 71 17 40 11/19/18 08:00 Mechanical Ventilator 11/19/18 08:00 98.9 71 17 128/70 (89) 99 11/19/18 08:00 69 11/19/18 08:00 60 11/19/18 07:16 100 Mechanical Ventilator 40 11/19/18 07:15 66 22 40 11/19/18 07:14 Mechanical Ventilator 40 11/19/18 05:42 98.2 11/19/18 05:25 71 18 40 11/19/18 04:00 Mechanical Ventilator 11/19/18 04:00 60 11/19/18 04:00 97.8 71 17 103/74 (84) 99 11/19/18 03:27 71 11/19/18 03:15 72 18 40 11/19/18 01:25 73 17 40 11/19/18 00:00 Mechanical Ventilator 11/19/18 00:00 98.4 72 18 120/76 (91) 98 11/18/18 23:25 73 11/18/18 22:45 75 19 40 11/18/18 22:20 98.2 Intake and Output 11/18/18 11/19/18 19:00 07:00 Intake Total 330 ml 415 ml Output Total 0 ml 0 ml Balance 330 ml 415 ml Free Water 50 ml IV Total 55 ml Tube Feeding 330 ml 310 ml Output Urine Total 0 ml 0 ml Height (Feet): 5 Height (Inches): 5.00 Weight (Pounds): 198 General Appearance: alert, confused Jeffrey Lala MD Nov 19, 2018 22:16
--- NOTE | 2018-11-19 22:45 | Progress Note ---
DATE: 11/19/2018 SUBJECTIVE: This is a 68-year-old male, currently sleeping on trach collar. OBJECTIVE: VITAL SIGNS: Blood pressure is 119/90, pulse 68, no fever. CHEST: Bilateral few crackles. CARDIOVASCULAR: Regular rhythm. ABDOMEN: Soft. EXTREMITIES: CCE. NEUROLOGICAL: Generalized weakness. LABORATORY AND DIAGNOSTIC DATA: The patient has no labs today. ASSESSMENT: 1. Angioedema. 2. Status post trach. 3. Chronic respiratory failure. 4. End-stage renal disease, on hemodialysis. 5. Diabetes. 6. Mild encephalopathy. PLAN: 1. We will currently continue current treatment. 2. Discharge plan discussed with the son yesterday. 3. Discharge plan to SNF for LTAC and discussed with Dr. Stevens who will be the PCP today. Discussed with Dr. Stevens and discussed with charge nurse. Jamari Carter M.D. DR: JEFF JOB#: [id number] CC:
[2018-11-20] VITALS: BP 106/64
[2018-11-20] MEDS: Morphine Sulfate 2mg/ml Inj(IV/IM USE ONLY) IVP PRN ×4 (01:01→21:16)
[2018-11-20] MEDS: Aztreonam Inj 0.5 GM in D5W 55 ML IVPB SCH ×2 (03:03→21:13)
[2018-11-20 04:00] VITALS: BP 117/81
[2018-11-20] MEDS: Renvela 800mg Pkt NG SCH (05:24)
[2018-11-20] MEDS: Docusate 100mg/10ml Liq NG SCH (05:25)
[2018-11-20 05:26] LABS: BASOPHILS % (AUTO) 0.5 % (0.0-2.0); HEMATOCRIT 37.5 % (42.0-52.0); HEMOGLOBIN 11.3 G/DL (14.2-18.0); LYMPHOCYTES % (AUTO) 16.1 % (20.0-45.0); MEAN CORPUSCULAR VOLUME 82 FL (80-99); MONOCYTES % (AUTO) 7.8 % (1.0-10.0); NEUTROPHILS % (AUTO) 75.6 % (45.0-75.0); PLATELET COUNT 202 K/UL (150-450); RED BLOOD COUNT 4.57 M/UL (4.70-6.10); WHITE BLOOD COUNT 7.3 K/UL (4.8-10.8)
[2018-11-20] MEDS: NovoLOG Insulin Flexpen SUBQ SCH ×3 (05:26→18:21)
[2018-11-20 06:11] LABS: ALANINE AMINOTRANSFERASE 11 U/L (12-78); ALBUMIN 2.1 G/DL (3.4-5.0); ALBUMIN/GLOBULIN RATIO 0.5 (1.0-2.7); ALKALINE PHOSPHATASE 85 U/L (46-116); ANION GAP 8 mmol/L (5-15); ASPARTATE AMINO TRANSFERASE 11 U/L (15-37); BILIRUBIN,TOTAL 0.3 MG/DL (0.2-1.0); BLOOD UREA NITROGEN 80 mg/dL (7-18); CARBON DIOXIDE 32 MMOL/L (21-32); CHLORIDE 96 MMOL/L (98-107); PHOSPHORUS 3.9 MG/DL (2.5-4.9); POTASSIUM 3.6 MMOL/L (3.5-5.1); SODIUM 136 MMOL/L (136-145)
[2018-11-20 08:00] VITALS: BP 121/76
[2018-11-20] MEDS: Aspirin Baby 81mg GT SCH (08:35)
--- NOTE | 2018-11-20 09:01 | Pulmonology Progress Note ---
Assessment/Plan Assessment/Plan 1. Resp failure, hypercapneic 2. End-stage renal disease, on dialysis, status post multiple upper extremity vascular procedures. 3. Coronary artery bypass surgery. 4. Diabetes. 5. Dysphonia, tongue swelling; s/p trach PLAN: tolerates trach collar at times tongue less swollen tolerates feeds disc w RN seems ready for LTAC asks why he needed trach; tried to explain to him about tongue swelling Subjective Constitutional: Reports: no symptoms Allergies: Coded Allergies: CEPHALEXIN (Unverified Allergy, Unknown, 02/24/14) SULFAMETHOXAZOLE (Unverified Allergy, Unknown, 02/24/14) TRIMETHOPRIM (Unverified Allergy, Unknown, 02/24/14) Objective Last 24 Hour Vital Signs Date Time Temp Pulse Resp B/P (MAP) Pulse Ox O2 Delivery O2 Flow Rate FiO2 11/20/18 07:10 62 21 40 11/20/18 07:10 100 Mechanical Ventilator 40 11/20/18 07:10 Mechanical Ventilator 40 11/20/18 05:35 66 20 40 11/20/18 04:00 Mechanical Ventilator 11/20/18 04:00 60 11/20/18 04:00 97.9 67 16 117/81 (93) 100 11/20/18 03:56 65 11/20/18 03:18 65 20 40 11/20/18 01:20 73 17 40 11/20/18 00:00 Mechanical Ventilator 11/20/18 00:00 68 11/20/18 00:00 98.4 68 17 106/64 (78) 100 11/19/18 23:30 65 20 40 11/19/18 22:00 67 18 40 11/19/18 20:00 98.0 67 17 125/53 (77) 100 11/19/18 20:00 60 11/19/18 20:00 Mechanical Ventilator 11/19/18 19:03 67 11/19/18 19:01 100 Mechanical Ventilator 40 11/19/18 19:01 Mechanical Ventilator 40 11/19/18 19:00 68 21 40 11/19/18 17:02 69 25 40 11/19/18 16:00 76 11/19/18 16:00 60 11/19/18 16:00 98.1 73 16 109/51 (70) 99 11/19/18 16:00 Mechanical Ventilator 11/19/18 15:24 81 29 40 11/19/18 12:00 97.8 68 18 119/90 (100) 99 11/19/18 12:00 Mechanical Ventilator 11/19/18 12:00 60 11/19/18 11:44 69 11/19/18 10:39 75 20 40 11/19/18 09:44 88 134/68 Intake and Output 11/19/18 11/20/18 18:59 06:59 Intake Total 400 ml 850 ml Output Total 0 ml 0 ml Balance 400 ml 850 ml Free Water 150 ml IV Total 220 ml Tube Feeding 400 ml 480 ml Output Urine Total 0 ml 0 ml Objective trach on vent General Appearance: no acute distress Respiratory/Chest: lungs clear Cardiovascular: normal rate Laboratory Tests 11/20/18 03:00: White Blood Count 7.3, Red Blood Count 4.57L, Hemoglobin 11.3L, Hematocrit 37.5L , Mean Corpuscular Volume 82, Mean Corpuscular Hemoglobin 24.7L, Mean Corpuscular Hemoglobin Concent 30.1L, Red Cell Distribution Width 17.0H, Platelet Count 202, Mean Platelet Volume 7.0, Neutrophils (%) (Auto) 75.6H, Lymphocytes (%) (Auto) 16.1L, Monocytes (%) (Auto) 7.8, Eosinophils (%) (Auto) 0.0, Basophils (%) (Auto) 0.5, Sodium Level 136, Potassium Level 3.6, Chloride Level 96L, Carbon Dioxide Level 32, Anion Gap 8, Blood Urea Nitrogen 80H, Creatinine 9.0H, Estimat Glomerular Filtration Rate 5.9, Glucose Level 149H, Uric Acid 6.1, Calcium Level 9.0, Phosphorus Level 3.9, Magnesium Level 2.4, Total Bilirubin 0.3, Aspartate Amino Transf (AST/SGOT) 11L, Alanine Aminotransferase (ALT/SGPT) 11L, Alkaline Phosphatase 85, C-Reactive Protein, Quantitative 10.0H, Pro-B-Type Natriuretic Peptide > 08405B, Total Protein 6.1L , Albumin 2.1L, Globulin 4.0, Albumin/Globulin Ratio 0.5L Current Medications Medications (Trade) Dose Ordered Sig/Aleks Route PRN Reason Start Time Stop Time Status Last Admin Dose Admin Acetaminophen (Tylenol) 650 mg Q4H PRN NG Mild Pain/Temp > 100.5 11/12/18 19:00 12/12/18 18:47 Aspirin (ASA) 81 mg DAILY GT 11/20/18 09:00 12/20/18 08:59 11/20/18 08:35 Atorvastatin Calcium (Lipitor) 10 mg BEDTIME NG 11/12/18 21:00 12/02/18 20:59 11/19/18 20:11 Aztreonam 0.5 gm/ Dextrose 55 ml @ 110 mls/hr Q12H IVPB 11/14/18 16:30 11/21/18 16:29 11/20/18 03:03 Chlorhexidine Gluconate (Glo-Hex 2%) 1 applic DAILY@1999 TOPIC 11/11/18 20:00 12/08/18 19:59 11/19/18 20:10 Collagenase (Santyl) 1 applic DAILY@2099 TOPIC 11/14/18 21:00 12/14/18 20:59 11/19/18 20:11 Dextrose (Dextrose 50%) 25 ml Q30M PRN IV Hypoglycemia 11/11/18 14:45 11/30/18 22:44 Dextrose (Dextrose 50%) 50 ml Q30M PRN IV Hypoglycemia 11/11/18 14:45 11/30/18 22:44 Docusate Sodium (Colace) 100 mg EVERY 8 HOURS NG 11/12/18 22:00 12/12/18 21:59 11/20/18 05:25 Hydralazine HCl (Apresoline) 10 mg Q6H PRN IV For High Blood Pressure 11/11/18 14:39 12/11/18 14:38 Insulin Aspart (NovoLOG) EVERY 6 HOURS SUBQ 11/12/18 12:00 12/01/18 06:29 11/20/18 05:26 Lansoprazole (Prevacid) 30 mg BID GT 11/20/18 09:00 12/20/18 08:59 11/20/18 08:35 Micafungin Sodium 100 mg/Sodium Chloride 110 ml @ 110 mls/hr Q24H IVPB 11/13/18 18:00 11/24/18 17:59 11/19/18 18:33 Morphine Sulfate (Morphine Sulfate) 0.5 mg Q4H PRN IVP severe pain(7-10) 11/16/18 21:45 11/23/18 21:37 11/20/18 04:37 Nicotine (Nicoderm) 1 patch Q24H TDERMAL 11/11/18 22:15 12/01/18 22:14 11/19/18 21:28 Olanzapine (ZyPREXA) 2.5 mg BEDTIME NG 11/13/18 21:00 12/13/18 20:59 11/19/18 20:12 Olanzapine (ZyPREXA) 2.5 mg Q6H PRN ORAL agitation 11/15/18 23:00 12/15/18 22:59 Polyethylene Glycol (Miralax) 17 gm DAILYPRN PRN NG Constipation 11/12/18 19:00 12/11/18 15:29 11/13/18 05:30 Sevelamer Carbonate (Renvela) 800 mg Q8HR NG 11/20/18 14:00 12/11/18 08:59 Tacrolimus (Prograf) 2 mg MoWeFr@0000,1200 ORAL 11/13/18 00:00 12/02/18 00:00 11/19/18 23:33 Tacrolimus (Prograf) 2 mg SuTuThSa@0900,2100 ORAL 11/17/18 21:00 12/17/18 20:59 11/19/18 20:11 Vancomycin HCl (Vanco rx to dose) 1 ea DAILY PRN MISC Per rx protocol 11/14/18 14:45 12/14/18 14:44 Saroj Mendoza MD Nov 20, 2018 09:01
--- NOTE | 2018-11-20 10:35 | Nephrology Progress Note ---
Assessment/Plan Problem List: (1) ESRD (end stage renal disease) on dialysis (2) Foot ulcer (3) CHF (congestive heart failure) (4) Pacemaker (5) Acute respiratory failure Assessment: with Co2 retention Assessment ESRD with high K and SOB on admit Foot ulcer, likely infected High Troponin likely NSTMI Pacer , Pleural effusion s/p CABGS s/p Liver transplant Plan Now has tracheostomy and PEG Adjust BP meds HD next 11/20- Vanco restarted by ID start tube feeding / hasPEG per cardio and ID Podiatry and Vascular surgical fu ? DC planning? Subjective ROS Limited/Unobtainable: No Objective Objective Last 24 Hour Vital Signs Date Time Temp Pulse Resp B/P (MAP) Pulse Ox O2 Delivery O2 Flow Rate FiO2 11/20/18 09:15 67 18 40 11/20/18 07:10 62 21 40 11/20/18 07:10 100 Mechanical Ventilator 40 11/20/18 07:10 Mechanical Ventilator 40 11/20/18 05:35 66 20 40 11/20/18 04:00 Mechanical Ventilator 11/20/18 04:00 60 11/20/18 04:00 97.9 67 16 117/81 (93) 100 11/20/18 03:56 65 11/20/18 03:18 65 20 40 11/20/18 01:20 73 17 40 11/20/18 00:00 Mechanical Ventilator 11/20/18 00:00 68 11/20/18 00:00 98.4 68 17 106/64 (78) 100 11/19/18 23:30 65 20 40 11/19/18 22:00 67 18 40 11/19/18 20:00 98.0 67 17 125/53 (77) 100 11/19/18 20:00 60 11/19/18 20:00 Mechanical Ventilator 11/19/18 19:03 67 11/19/18 19:01 100 Mechanical Ventilator 40 11/19/18 19:01 Mechanical Ventilator 40 11/19/18 19:00 68 21 40 11/19/18 17:02 69 25 40 11/19/18 16:00 76 11/19/18 16:00 60 11/19/18 16:00 98.1 73 16 109/51 (70) 99 11/19/18 16:00 Mechanical Ventilator 11/19/18 15:24 81 29 40 11/19/18 12:00 97.8 68 18 119/90 (100) 99 11/19/18 12:00 Mechanical Ventilator 11/19/18 12:00 60 11/19/18 11:44 69 11/19/18 10:39 75 20 40 Intake and Output 11/19/18 11/20/18 18:59 06:59 Intake Total 400 ml 850 ml Output Total 0 ml 0 ml Balance 400 ml 850 ml Free Water 150 ml IV Total 220 ml Tube Feeding 400 ml 480 ml Output Urine Total 0 ml 0 ml Laboratory Tests 11/20/18 03:00: White Blood Count 7.3, Red Blood Count 4.57L, Hemoglobin 11.3L, Hematocrit 37.5L , Mean Corpuscular Volume 82, Mean Corpuscular Hemoglobin 24.7L, Mean Corpuscular Hemoglobin Concent 30.1L, Red Cell Distribution Width 17.0H, Platelet Count 202, Mean Platelet Volume 7.0, Neutrophils (%) (Auto) 75.6H, Lymphocytes (%) (Auto) 16.1L, Monocytes (%) (Auto) 7.8, Eosinophils (%) (Auto) 0.0, Basophils (%) (Auto) 0.5, Sodium Level 136, Potassium Level 3.6, Chloride Level 96L, Carbon Dioxide Level 32, Anion Gap 8, Blood Urea Nitrogen 80H, Creatinine 9.0H, Estimat Glomerular Filtration Rate 5.9, Glucose Level 149H, Uric Acid 6.1, Calcium Level 9.0, Phosphorus Level 3.9, Magnesium Level 2.4, Total Bilirubin 0.3, Aspartate Amino Transf (AST/SGOT) 11L, Alanine Aminotransferase (ALT/SGPT) 11L, Alkaline Phosphatase 85, C-Reactive Protein, Quantitative 10.0H, Pro-B-Type Natriuretic Peptide > 18727H, Total Protein 6.1L , Albumin 2.1L, Globulin 4.0, Albumin/Globulin Ratio 0.5L Height (Feet): 5 Height (Inches): 5.00 Weight (Pounds): 196 EENT: other - trach Cardiovascular: normal rate Respiratory/Chest: decreased breath sounds Abdomen: soft, other - PEG Objective no other change Nakul Stevens MD Nov 20, 2018 10:35
--- NOTE | 2018-11-20 11:24 | General Progress Note ---
Assessment/Plan Problem List: (1) Transplant ICD Codes: Z94.9 - Transplanted organ and tissue status, unspecified SNOMED: 500442378 (2) HTN (hypertension) ICD Codes: I10 - Essential (primary) hypertension SNOMED: 59307444 (3) Pacemaker ICD Codes: Z95.0 - Presence of cardiac pacemaker SNOMED: 006383348 (4) CHF (congestive heart failure) ICD Codes: I50.9 - Heart failure, unspecified SNOMED: 47933089 (5) DM (diabetes mellitus) ICD Codes: E11.9 - Type 2 diabetes mellitus without complications SNOMED: 70419062 (6) Foot ulcer ICD Codes: L97.509 - Non-pressure chronic ulcer of other part of unspecified foot with unspecified severity SNOMED: 99585978 Qualifiers: Qualified Codes: L97.511 - Non-pressure chronic ulcer of other part of right foot limited to breakdown of skin (7) ESRD (end stage renal disease) on dialysis ICD Codes: N18.6 - End stage renal disease; Z99.2 - Dependence on renal dialysis SNOMED: 978982624 Assessment/Plan GTF HD per nephro fu labs support\ve care Subjective ROS Limited/Unobtainable: No Allergies: Coded Allergies: CEPHALEXIN (Unverified Allergy, Unknown, 02/24/14) SULFAMETHOXAZOLE (Unverified Allergy, Unknown, 02/24/14) TRIMETHOPRIM (Unverified Allergy, Unknown, 02/24/14) Subjective he pulled his NGT again Objective Last 24 Hour Vital Signs Date Time Temp Pulse Resp B/P (MAP) Pulse Ox O2 Delivery O2 Flow Rate FiO2 11/20/18 09:15 67 18 40 11/20/18 08:00 Mechanical Ventilator 11/20/18 08:00 60 11/20/18 08:00 62 11/20/18 08:00 97.8 62 20 121/76 (91) 100 11/20/18 07:10 62 21 40 11/20/18 07:10 100 Mechanical Ventilator 40 11/20/18 07:10 Mechanical Ventilator 40 11/20/18 05:35 66 20 40 11/20/18 04:00 Mechanical Ventilator 11/20/18 04:00 60 11/20/18 04:00 97.9 67 16 117/81 (93) 100 11/20/18 03:56 65 11/20/18 03:18 65 20 40 11/20/18 01:20 73 17 40 11/20/18 00:00 Mechanical Ventilator 11/20/18 00:00 68 11/20/18 00:00 98.4 68 17 106/64 (78) 100 11/19/18 23:30 65 20 40 11/19/18 22:00 67 18 40 11/19/18 20:00 98.0 67 17 125/53 (77) 100 11/19/18 20:00 60 11/19/18 20:00 Mechanical Ventilator 11/19/18 19:03 67 11/19/18 19:01 100 Mechanical Ventilator 40 11/19/18 19:01 Mechanical Ventilator 40 11/19/18 19:00 68 21 40 11/19/18 17:02 69 25 40 11/19/18 16:00 76 11/19/18 16:00 60 11/19/18 16:00 98.1 73 16 109/51 (70) 99 11/19/18 16:00 Mechanical Ventilator 11/19/18 15:24 81 29 40 11/19/18 12:00 97.8 68 18 119/90 (100) 99 11/19/18 12:00 Mechanical Ventilator 11/19/18 12:00 60 11/19/18 11:44 69 Intake and Output 11/19/18 11/20/18 18:59 06:59 Intake Total 400 ml 850 ml Output Total 0 ml 0 ml Balance 400 ml 850 ml Free Water 150 ml IV Total 220 ml Tube Feeding 400 ml 480 ml Output Urine Total 0 ml 0 ml Laboratory Tests 11/20/18 03:00: White Blood Count 7.3, Red Blood Count 4.57L, Hemoglobin 11.3L, Hematocrit 37.5L , Mean Corpuscular Volume 82, Mean Corpuscular Hemoglobin 24.7L, Mean Corpuscular Hemoglobin Concent 30.1L, Red Cell Distribution Width 17.0H, Platelet Count 202, Mean Platelet Volume 7.0, Neutrophils (%) (Auto) 75.6H, Lymphocytes (%) (Auto) 16.1L, Monocytes (%) (Auto) 7.8, Eosinophils (%) (Auto) 0.0, Basophils (%) (Auto) 0.5, Sodium Level 136, Potassium Level 3.6, Chloride Level 96L, Carbon Dioxide Level 32, Anion Gap 8, Blood Urea Nitrogen 80H, Creatinine 9.0H, Estimat Glomerular Filtration Rate 5.9, Glucose Level 149H, Uric Acid 6.1, Calcium Level 9.0, Phosphorus Level 3.9, Magnesium Level 2.4, Total Bilirubin 0.3, Aspartate Amino Transf (AST/SGOT) 11L, Alanine Aminotransferase (ALT/SGPT) 11L, Alkaline Phosphatase 85, C-Reactive Protein, Quantitative 10.0H, Pro-B-Type Natriuretic Peptide > 08373O, Total Protein 6.1L , Albumin 2.1L, Globulin 4.0, Albumin/Globulin Ratio 0.5L Height (Feet): 5 Height (Inches): 5.00 Weight (Pounds): 196 General Appearance: no apparent distress EENT: normal ENT inspection Neck: supple Cardiovascular: normal rate Respiratory/Chest: decreased breath sounds Abdomen: normal bowel sounds, non tender, soft Extremities: non-tender Jorge Escalera MD Nov 20, 2018 11:24
[2018-11-20 12:00] VITALS: BP 102/69
[2018-11-20] MEDS: Docusate 100mg/10ml Liq GT SCH ×2 (13:23→21:13)
[2018-11-20] MEDS: Renvela 800mg Pkt GT SCH ×2 (13:23→21:14)
[2018-11-20] MEDS ORDERED: Renvela 800mg Pkt NG SCH (14:00)
--- NOTE | 2018-11-20 15:13 | Cardiac Electrophysiology PN ---
Assessment/Plan Assessment/Plan 1. Troponin elevation. No chest pain. Hx of CABG. Due to renal failure. On Coreg 6.25 mg bid, aspirin and Lipitor 2. S/P CABG 3. Nonsustained ventricular tachycardia. The patient has history of prior myocardial infarction and CABG. EF 55%. No Syncope 4. Congestive heart failure. On hemodialysis 5. End-stage renal disease, on hemodialysis per Dr. Stevens 6. Status post right sided Medtronic dual chamber pacemaker with Nl Fx. 7. Right foot ulcer. Antibiotic per Dr. Landis. FU by Dr. Huizar 8. History of liver transplant on Prograf 9. Respiratory failure, ? etiology anaphylaxis. S/P Emergency tracheostomy. Weaned off the vent on T Piece 10. Pleural effusion. LANA Mendoza 11. Dysphagia, S/P PEG DW RN Subjective Subjective On the vent via tracheostomy. No events. Objective Last 24 Hour Vital Signs Date Time Temp Pulse Resp B/P (MAP) Pulse Ox O2 Delivery O2 Flow Rate FiO2 11/20/18 13:29 65 22 40 11/20/18 12:00 60 11/20/18 12:00 97.7 67 20 102/69 (80) 100 11/20/18 12:00 67 11/20/18 12:00 Mechanical Ventilator 11/20/18 11:20 70 24 40 11/20/18 11:00 85 26 11/20/18 09:15 67 18 40 11/20/18 08:00 Mechanical Ventilator 11/20/18 08:00 60 11/20/18 08:00 62 11/20/18 08:00 97.8 62 20 121/76 (91) 100 11/20/18 07:10 62 21 40 11/20/18 07:10 100 Mechanical Ventilator 40 11/20/18 07:10 Mechanical Ventilator 40 11/20/18 05:35 66 20 40 11/20/18 04:00 Mechanical Ventilator 11/20/18 04:00 60 11/20/18 04:00 97.9 67 16 117/81 (93) 100 11/20/18 03:56 65 11/20/18 03:18 65 20 40 11/20/18 01:20 73 17 40 11/20/18 00:00 Mechanical Ventilator 11/20/18 00:00 68 11/20/18 00:00 98.4 68 17 106/64 (78) 100 11/19/18 23:30 65 20 40 11/19/18 22:00 67 18 40 11/19/18 20:00 98.0 67 17 125/53 (77) 100 11/19/18 20:00 60 11/19/18 20:00 Mechanical Ventilator 11/19/18 19:03 67 11/19/18 19:01 100 Mechanical Ventilator 40 11/19/18 19:01 Mechanical Ventilator 40 11/19/18 19:00 68 21 40 11/19/18 17:02 69 25 40 11/19/18 16:00 76 11/19/18 16:00 60 11/19/18 16:00 98.1 73 16 109/51 (70) 99 11/19/18 16:00 Mechanical Ventilator 11/19/18 15:24 81 29 40 Intake and Output 11/19/18 11/20/18 19:00 07:00 Intake Total 400 ml 905 ml Output Total 0 ml 0 ml Balance 400 ml 905 ml Free Water 200 ml IV Total 220 ml Tube Feeding 400 ml 485 ml Output Urine Total 0 ml 0 ml Laboratory Tests Test 11/20/18 03:00 White Blood Count 7.3 K/UL (4.8-10.8) Red Blood Count 4.57 M/UL (4.70-6.10) L Hemoglobin 11.3 G/DL (14.2-18.0) L Hematocrit 37.5 % (42.0-52.0) L Mean Corpuscular Volume 82 FL (80-99) Mean Corpuscular Hemoglobin 24.7 PG (27.0-31.0) L Mean Corpuscular Hemoglobin Concent 30.1 G/DL (32.0-36.0) L Red Cell Distribution Width 17.0 % (11.6-14.8) H Platelet Count 202 K/UL (150-450) Mean Platelet Volume 7.0 FL (6.5-10.1) Neutrophils (%) (Auto) 75.6 % (45.0-75.0) H Lymphocytes (%) (Auto) 16.1 % (20.0-45.0) L Monocytes (%) (Auto) 7.8 % (1.0-10.0) Eosinophils (%) (Auto) 0.0 % (0.0-3.0) Basophils (%) (Auto) 0.5 % (0.0-2.0) Sodium Level 136 MMOL/L (136-145) Potassium Level 3.6 MMOL/L (3.5-5.1) Chloride Level 96 MMOL/L (98-107) L Carbon Dioxide Level 32 MMOL/L (21-32) Anion Gap 8 mmol/L (5-15) Blood Urea Nitrogen 80 mg/dL (7-18) H Creatinine 9.0 MG/DL (0.55-1.30) H Estimat Glomerular Filtration Rate 5.9 mL/min (>60) Glucose Level 149 MG/DL (74-106) H Uric Acid 6.1 MG/DL (2.6-7.2) Calcium Level 9.0 MG/DL (8.5-10.1) Phosphorus Level 3.9 MG/DL (2.5-4.9) Magnesium Level 2.4 MG/DL (1.8-2.4) Total Bilirubin 0.3 MG/DL (0.2-1.0) Aspartate Amino Transf (AST/SGOT) 11 U/L (15-37) L Alanine Aminotransferase (ALT/SGPT) 11 U/L (12-78) L Alkaline Phosphatase 85 U/L (46-116) C-Reactive Protein, Quantitative 10.0 mg/dL (0.00-0.90) H Pro-B-Type Natriuretic Peptide > 76960 pg/mL (0-125) H Total Protein 6.1 G/DL (6.4-8.2) L Albumin 2.1 G/DL (3.4-5.0) L Globulin 4.0 g/dL Albumin/Globulin Ratio 0.5 (1.0-2.7) L Objective HEAD AND NECK: No JVD.Tracheostomy intact LUNGS: Coarse rhonchi. CARDIOVASCULAR: Regular S1 and S2 with no gallop. Sternotomy is intact Pacemaker in the right subclavian ABDOMEN: Soft.PEG in place EXTREMITIES: 1+ pitting edema Shivam Sharpe MD Nov 20, 2018 15:13
[2018-11-20 16:00] VITALS: BP 160/64
--- NOTE | 2018-11-20 17:48 | Infectious Diseases Prog Note ---
Assessment/Plan Problems: (1) Fever Assessment & Plan: with mild leukocytosis suspect due to massive recurrent right side pleural effusion with possible pneumonia , S/P repeated thoracentesis with removal of 1.5 liter of fluids , continue vancomycin and aztreonam empirically for 8 days , monitor cultures (2) Thrush, oral Assessment & Plan: continue local nystatin , and iv micafungin to treat him since fluconazole has many interaction with his transplants meds . may need to rule out esophageal sergio since immunocompromised (3) HCV antibody positive Assessment & Plan: no evidence of active infection, with undetectable viral load , suspect due to previous infection , cleared, S/P liver transplant . (4) Foot ulcer Assessment & Plan: in diabetic patient , with MRSA , S/P vancomycin treatment with HD for two weeks , pending vascular eval and possible surgical debridement. bone scan ruled out osteomyelitis of the heel . follow up with office support assistant (5) DM (diabetes mellitus) Assessment & Plan: recommend tight glycemic control to keep blood glucose between 100-140 (6) CHF (congestive heart failure) Assessment & Plan: on HD , renal is following, monitor daily weight (7) Encephalopathy acute Assessment & Plan: suspect metabolic, with high urea level, waxing and waning , now improved (8) Severe tongue swelling Assessment & Plan: improving initially after steroids , but got worse later, with respiratory compromise , had tracheostomy to protect his airway since respiratory status worsened . now improving, pulmonary is following (9) Pleural effusion Assessment & Plan: recurrent on the right, with lung collapse , S/P thoracentesis X2 with removal of 1.5 cc of clear fluids. PREVIOUS culture were negative with negative cytology Subjective Constitutional: Reports: no symptoms HEENT: Reports: no symptoms Respiratory: Reports: no symptoms Breasts: Reports: no symptoms Cardiovascular: Reports: no symptoms Gastrointestinal/Abdominal: Reports: no symptoms Genitourinary: Reports: no symptoms Neurologic: Reports: no symptoms Psychiatric: Reports: no symptoms Skin: Reports: no symptoms Endocrine: Reports: no symptoms Hematologic: Reports: no symptoms Musculoskeletal: Reports: no symptoms Allergies: Coded Allergies: CEPHALEXIN (Unverified Allergy, Unknown, 02/24/14) SULFAMETHOXAZOLE (Unverified Allergy, Unknown, 02/24/14) TRIMETHOPRIM (Unverified Allergy, Unknown, 02/24/14) Subjective he was feeling good , has less facial swelling and tongue swelling , awake and responsive, no fever or chills, no significant secretions , no SOB . has less thrush on his tongue Objective Vital Signs Last 24 Hour Vital Signs Date Time Temp Pulse Resp B/P (MAP) Pulse Ox O2 Delivery O2 Flow Rate FiO2 11/20/18 17:04 65 20 40 11/20/18 16:00 60 11/20/18 16:00 64 11/20/18 16:00 97.8 64 20 160/64 (96) 100 11/20/18 16:00 Mechanical Ventilator 11/20/18 15:00 64 22 40 11/20/18 13:29 65 22 40 11/20/18 12:00 60 11/20/18 12:00 97.7 67 20 102/69 (80) 100 11/20/18 12:00 67 11/20/18 12:00 Mechanical Ventilator 11/20/18 11:20 70 24 40 11/20/18 11:00 85 26 11/20/18 09:15 67 18 40 11/20/18 08:00 Mechanical Ventilator 11/20/18 08:00 60 11/20/18 08:00 62 11/20/18 08:00 97.8 62 20 121/76 (91) 100 11/20/18 07:10 62 21 40 11/20/18 07:10 100 Mechanical Ventilator 40 11/20/18 07:10 Mechanical Ventilator 40 11/20/18 05:35 66 20 40 11/20/18 04:00 Mechanical Ventilator 11/20/18 04:00 60 11/20/18 04:00 97.9 67 16 117/81 (93) 100 11/20/18 03:56 65 11/20/18 03:18 65 20 40 11/20/18 01:20 73 17 40 11/20/18 00:00 Mechanical Ventilator 11/20/18 00:00 68 11/20/18 00:00 98.4 68 17 106/64 (78) 100 11/19/18 23:30 65 20 40 11/19/18 22:00 67 18 40 11/19/18 20:00 98.0 67 17 125/53 (77) 100 11/19/18 20:00 60 11/19/18 20:00 Mechanical Ventilator 11/19/18 19:03 67 11/19/18 19:01 100 Mechanical Ventilator 40 11/19/18 19:01 Mechanical Ventilator 40 11/19/18 19:00 68 21 40 Height (Feet): 5 Height (Inches): 5.00 Weight (Pounds): 196 General Appearance: WD/WN, no acute distress HEENT: normocephalic, atraumatic, anicteric, mucous membranes moist, PERRL Respiratory/Chest: chest wall non-tender, lungs clear, normal breath sounds, no respiratory distress, no accessory muscle use Cardiovascular: normal peripheral pulses, normal rate, regular rhythm, no gallop/murmur, no JVD Abdomen: normal bowel sounds, soft, non tender, no organomegaly, non distended , no mass, no scars Genitourinary: normal external genitalia Extremities: no cyanosis, no clubbing Skin: no rash, no lesions, no ulcers 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: machine hostler 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 normal, no motor/sensory deficits, alert, oriented x 3, responsive Lymphatic: no neck adenopathy, no groin adenopathy Musculoskeletal: normal muscle bulk, no effusion Laboratory Tests Test 11/20/18 03:00 White Blood Count 7.3 K/UL (4.8-10.8) Red Blood Count 4.57 M/UL (4.70-6.10) L Hemoglobin 11.3 G/DL (14.2-18.0) L Hematocrit 37.5 % (42.0-52.0) L Mean Corpuscular Volume 82 FL (80-99) Mean Corpuscular Hemoglobin 24.7 PG (27.0-31.0) L Mean Corpuscular Hemoglobin Concent 30.1 G/DL (32.0-36.0) L Red Cell Distribution Width 17.0 % (11.6-14.8) H Platelet Count 202 K/UL (150-450) Mean Platelet Volume 7.0 FL (6.5-10.1) Neutrophils (%) (Auto) 75.6 % (45.0-75.0) H Lymphocytes (%) (Auto) 16.1 % (20.0-45.0) L Monocytes (%) (Auto) 7.8 % (1.0-10.0) Eosinophils (%) (Auto) 0.0 % (0.0-3.0) Basophils (%) (Auto) 0.5 % (0.0-2.0) Sodium Level 136 MMOL/L (136-145) Potassium Level 3.6 MMOL/L (3.5-5.1) Chloride Level 96 MMOL/L (98-107) L Carbon Dioxide Level 32 MMOL/L (21-32) Anion Gap 8 mmol/L (5-15) Blood Urea Nitrogen 80 mg/dL (7-18) H Creatinine 9.0 MG/DL (0.55-1.30) H Estimat Glomerular Filtration Rate 5.9 mL/min (>60) Glucose Level 149 MG/DL (74-106) H Uric Acid 6.1 MG/DL (2.6-7.2) Calcium Level 9.0 MG/DL (8.5-10.1) Phosphorus Level 3.9 MG/DL (2.5-4.9) Magnesium Level 2.4 MG/DL (1.8-2.4) Total Bilirubin 0.3 MG/DL (0.2-1.0) Aspartate Amino Transf (AST/SGOT) 11 U/L (15-37) L Alanine Aminotransferase (ALT/SGPT) 11 U/L (12-78) L Alkaline Phosphatase 85 U/L (46-116) C-Reactive Protein, Quantitative 10.0 mg/dL (0.00-0.90) H Pro-B-Type Natriuretic Peptide > 42657 pg/mL (0-125) H Total Protein 6.1 G/DL (6.4-8.2) L Albumin 2.1 G/DL (3.4-5.0) L Globulin 4.0 g/dL Albumin/Globulin Ratio 0.5 (1.0-2.7) L Current Medications Medications (Trade) Dose Ordered Sig/Aleks Route PRN Reason Start Time Stop Time Status Last Admin Dose Admin Acetaminophen (Tylenol) 650 mg Q4H PRN NG Mild Pain/Temp > 100.5 11/12/18 19:00 12/12/18 18:47 Aspirin (ASA) 81 mg DAILY GT 11/20/18 09:00 12/20/18 08:59 11/20/18 08:35 Atorvastatin Calcium (Lipitor) 10 mg BEDTIME NG 11/12/18 21:00 12/02/18 20:59 11/19/18 20:11 Aztreonam 0.5 gm/ Dextrose 55 ml @ 110 mls/hr Q12H IVPB 11/14/18 16:30 11/21/18 16:29 11/20/18 03:03 Chlorhexidine Gluconate (Glo-Hex 2%) 1 applic DAILY@1999 TOPIC 11/11/18 20:00 12/08/18 19:59 11/19/18 20:10 Collagenase (Santyl) 1 applic DAILY@2099 TOPIC 11/14/18 21:00 12/14/18 20:59 11/19/18 20:11 Dextrose (Dextrose 50%) 25 ml Q30M PRN IV Hypoglycemia 11/11/18 14:45 11/30/18 22:44 Dextrose (Dextrose 50%) 50 ml Q30M PRN IV Hypoglycemia 11/11/18 14:45 11/30/18 22:44 Docusate Sodium (Colace) 100 mg EVERY 8 HOURS GT 11/20/18 14:00 12/20/18 13:59 11/20/18 13:23 Hydralazine HCl (Apresoline) 10 mg Q6H PRN IV For High Blood Pressure 11/11/18 14:39 12/11/18 14:38 Insulin Aspart (NovoLOG) EVERY 6 HOURS SUBQ 11/12/18 12:00 12/01/18 06:29 11/20/18 12:04 Lansoprazole (Prevacid) 30 mg BID GT 11/20/18 09:00 12/20/18 08:59 11/20/18 08:35 Micafungin Sodium 100 mg/Sodium Chloride 110 ml @ 110 mls/hr Q24H IVPB 11/13/18 18:00 11/24/18 17:59 11/19/18 18:33 Morphine Sulfate (Morphine Sulfate) 0.5 mg Q4H PRN IVP severe pain(7-10) 11/16/18 21:45 11/23/18 21:37 11/20/18 16:45 Nicotine (Nicoderm) 1 patch Q24H TDERMAL 11/11/18 22:15 12/01/18 22:14 11/19/18 21:28 Olanzapine (ZyPREXA) 2.5 mg BEDTIME NG 11/13/18 21:00 12/13/18 20:59 11/19/18 20:12 Olanzapine (ZyPREXA) 2.5 mg Q6H PRN ORAL agitation 11/15/18 23:00 12/15/18 22:59 Polyethylene Glycol (Miralax) 17 gm DAILYPRN PRN NG Constipation 11/12/18 19:00 12/11/18 15:29 11/13/18 05:30 Sevelamer Carbonate (Renvela) 800 mg Q8HR GT 11/20/18 14:00 12/20/18 13:59 11/20/18 13:23 Tacrolimus (Prograf) 2 mg MoWeFr@0000,1200 ORAL 11/13/18 00:00 12/02/18 00:00 11/20/18 12:05 Tacrolimus (Prograf) 2 mg SuTuThSa@0900,2100 ORAL 11/17/18 21:00 12/17/18 20:59 11/19/18 20:11 Vancomycin HCl (Vanco rx to dose) 1 ea DAILY PRN MISC Per rx protocol 11/14/18 14:45 12/14/18 14:44 Francois Landis M.D. Nov 20, 2018 17:48
[2018-11-20] MEDS: Micafungin 100 MG in NS 110 ML IVPB SCH (18:43)
[2018-11-20 20:00] VITALS: BP 102/50
[2018-11-20] MEDS: Dyna-Hex 2% Top Sol 2oz TOPIC SCH (21:01)
[2018-11-20] MEDS: OLANZapine 2.5mg tab NG SCH (21:07)
--- NOTE | 2018-11-20 21:57 | General Progress Note ---
Assessment/Plan Problem List: (1) Encephalopathy acute ICD Codes: G93.40 - Encephalopathy, unspecified SNOMED: 73827805, 340165884 Assessment/Plan Zyprexa 2.5mg po qhs Zyprexa prn the pt lacks capacity ativan 1mg gt prior to weaning off from vent Subjective 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: Reports: anxiety, depressed, emotional problems Allergies: Coded Allergies: CEPHALEXIN (Unverified Allergy, Unknown, 02/24/14) SULFAMETHOXAZOLE (Unverified Allergy, Unknown, 02/24/14) TRIMETHOPRIM (Unverified Allergy, Unknown, 02/24/14) Subjective the pt was disoriented non verbal the pt is not tolerating the weaning process/ gets agitated and breaths fast Objective Last 24 Hour Vital Signs Date Time Temp Pulse Resp B/P (MAP) Pulse Ox O2 Delivery O2 Flow Rate FiO2 11/20/18 21:10 69 19 40 11/20/18 18:58 100 Mechanical Ventilator 40 11/20/18 18:58 Mechanical Ventilator 40 11/20/18 18:56 66 21 40 11/20/18 17:04 65 20 40 11/20/18 16:00 60 11/20/18 16:00 64 11/20/18 16:00 97.8 64 20 160/64 (96) 100 11/20/18 16:00 Mechanical Ventilator 11/20/18 15:00 64 22 40 11/20/18 13:29 65 22 40 11/20/18 12:00 60 11/20/18 12:00 97.7 67 20 102/69 (80) 100 11/20/18 12:00 67 11/20/18 12:00 Mechanical Ventilator 11/20/18 11:20 70 24 40 11/20/18 11:00 85 26 11/20/18 09:15 67 18 40 11/20/18 08:00 Mechanical Ventilator 11/20/18 08:00 60 11/20/18 08:00 62 11/20/18 08:00 97.8 62 20 121/76 (91) 100 11/20/18 07:10 62 21 40 11/20/18 07:10 100 Mechanical Ventilator 40 11/20/18 07:10 Mechanical Ventilator 40 11/20/18 05:35 66 20 40 11/20/18 04:00 Mechanical Ventilator 4/5/19 04:00 60 11/20/18 04:00 97.9 67 16 117/81 (93) 100 11/20/18 03:56 65 11/20/18 03:18 65 20 40 11/20/18 01:20 73 17 40 11/20/18 00:00 Mechanical Ventilator 11/20/18 00:00 68 11/20/18 00:00 98.4 68 17 106/64 (78) 100 11/19/18 23:30 65 20 40 11/19/18 22:00 67 18 40 Intake and Output 11/19/18 11/20/18 19:00 07:00 Intake Total 400 ml 905 ml Output Total 0 ml 0 ml Balance 400 ml 905 ml Free Water 200 ml IV Total 220 ml Tube Feeding 400 ml 485 ml Output Urine Total 0 ml 0 ml Laboratory Tests 11/20/18 03:00: White Blood Count 7.3, Red Blood Count 4.57L, Hemoglobin 11.3L, Hematocrit 37.5L , Mean Corpuscular Volume 82, Mean Corpuscular Hemoglobin 24.7L, Mean Corpuscular Hemoglobin Concent 30.1L, Red Cell Distribution Width 17.0H, Platelet Count 202, Mean Platelet Volume 7.0, Neutrophils (%) (Auto) 75.6H, Lymphocytes (%) (Auto) 16.1L, Monocytes (%) (Auto) 7.8, Eosinophils (%) (Auto) 0.0, Basophils (%) (Auto) 0.5, Sodium Level 136, Potassium Level 3.6, Chloride Level 96L, Carbon Dioxide Level 32, Anion Gap 8, Blood Urea Nitrogen 80H, Creatinine 9.0H, Estimat Glomerular Filtration Rate 5.9, Glucose Level 149H, Uric Acid 6.1, Calcium Level 9.0, Phosphorus Level 3.9, Magnesium Level 2.4, Total Bilirubin 0.3, Aspartate Amino Transf (AST/SGOT) 11L, Alanine Aminotransferase (ALT/SGPT) 11L, Alkaline Phosphatase 85, C-Reactive Protein, Quantitative 10.0H, Pro-B-Type Natriuretic Peptide > 40794A, Total Protein 6.1L , Albumin 2.1L, Globulin 4.0, Albumin/Globulin Ratio 0.5L Height (Feet): 5 Height (Inches): 5.00 Weight (Pounds): 196 General Appearance: alert, confused, agitated Farhadi,Pantea MD Nov 20, 2018 21:57
[2018-11-21] VITALS: BP 120/41
[2018-11-21] MEDS: NovoLOG Insulin Flexpen SUBQ SCH ×6 (00:06→17:25)
[2018-11-21] MEDS: Morphine Sulfate 2mg/ml Inj(IV/IM USE ONLY) IVP PRN ×4 (03:43→19:17)
[2018-11-21 04:00] VITALS: BP 153/49
[2018-11-21] MEDS: Docusate 100mg/10ml Liq GT SCH ×3 (05:54→21:32)
[2018-11-21] MEDS: Renvela 800mg Pkt GT SCH ×3 (05:54→21:33)
--- NOTE | 2018-11-21 07:14 | Pulmonology Progress Note ---
Assessment/Plan Assessment/Plan 1. Resp failure, hypercapneic 2. End-stage renal disease, on dialysis, status post multiple upper extremity vascular procedures. 3. Coronary artery bypass surgery. 4. Diabetes. 5. Dysphonia, tongue swelling; s/p trach PLAN: tolerates trach collar at times tongue less swollen tolerates feeds disc w RN ready for LTAC nebs and prn suction pt Subjective ROS Limited/Unobtainable: Yes Allergies: Coded Allergies: CEPHALEXIN (Unverified Allergy, Unknown, 02/24/14) SULFAMETHOXAZOLE (Unverified Allergy, Unknown, 02/24/14) TRIMETHOPRIM (Unverified Allergy, Unknown, 02/24/14) Subjective awake minimal secretions on vent no cp nv or bleeding not getting oob positive uop tongue swelling resolved Objective Last 24 Hour Vital Signs Date Time Temp Pulse Resp B/P (MAP) Pulse Ox O2 Delivery O2 Flow Rate FiO2 11/21/18 05:09 69 20 40 11/21/18 04:00 Mechanical Ventilator 11/21/18 04:00 70 11/21/18 04:00 98.0 74 25 153/49 (83) 98 11/21/18 04:00 60 11/21/18 03:14 74 28 40 11/21/18 01:01 68 20 40 11/21/18 00:00 98.4 69 20 120/41 (67) 100 11/21/18 00:00 Mechanical Ventilator 11/21/18 00:00 68 11/20/18 23:17 69 21 40 11/20/18 21:10 69 19 40 11/20/18 20:00 Mechanical Ventilator 11/20/18 20:00 60 11/20/18 20:00 65 11/20/18 20:00 98.0 66 19 102/50 (67) 100 11/20/18 18:58 100 Mechanical Ventilator 40 11/20/18 18:58 Mechanical Ventilator 40 11/20/18 18:56 66 21 40 11/20/18 17:04 65 20 40 11/20/18 16:00 60 11/20/18 16:00 64 11/20/18 16:00 97.8 64 20 160/64 (96) 100 11/20/18 16:00 Mechanical Ventilator 11/20/18 15:00 64 22 40 11/20/18 13:29 65 22 40 11/20/18 12:00 60 11/20/18 12:00 97.7 67 20 102/69 (80) 100 11/20/18 12:00 67 11/20/18 12:00 Mechanical Ventilator 11/20/18 11:20 70 24 40 11/20/18 11:00 85 26 11/20/18 09:15 67 18 40 11/20/18 08:00 Mechanical Ventilator 11/20/18 08:00 60 11/20/18 08:00 62 11/20/18 08:00 97.8 62 20 121/76 (91) 100 Intake and Output 11/20/18 11/21/18 19:00 07:00 Intake Total 740 ml 635 ml Output Total 2000 ml Balance -1260 ml 635 ml Free Water 200 ml 140 ml Tube Feeding 540 ml 495 ml Hemodialysis UF 2000 ml General Appearance: WD/WN HEENT: status post trach Respiratory/Chest: lungs clear Cardiovascular: normal rate, regularly irregular Abdomen: soft, non tender, no organomegaly 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: oriented x 3, responsive Current Medications Medications (Trade) Dose Ordered Sig/Aleks Route PRN Reason Start Time Stop Time Status Last Admin Dose Admin Acetaminophen (Tylenol) 650 mg Q4H PRN NG Mild Pain/Temp > 100.5 11/12/18 19:00 12/12/18 18:47 Aspirin (ASA) 81 mg DAILY GT 11/20/18 09:00 12/20/18 08:59 11/20/18 08:35 Atorvastatin Calcium (Lipitor) 10 mg BEDTIME NG 11/12/18 21:00 12/02/18 20:59 11/20/18 21:01 Aztreonam 0.5 gm/ Dextrose 55 ml @ 110 mls/hr Q12H IVPB 11/20/18 21:00 11/27/18 20:59 11/20/18 21:13 Chlorhexidine Gluconate (Glo-Hex 2%) 1 applic DAILY@2000 TOPIC 11/11/18 20:00 12/08/18 19:59 11/20/18 21:01 Collagenase (Santyl) 1 applic DAILY@2100 TOPIC 11/14/18 21:00 12/14/18 20:59 11/20/18 21:13 Dextrose (Dextrose 50%) 25 ml Q30M PRN IV Hypoglycemia 11/11/18 14:45 11/30/18 22:44 Dextrose (Dextrose 50%) 50 ml Q30M PRN IV Hypoglycemia 11/11/18 14:45 11/30/18 22:44 Docusate Sodium (Colace) 100 mg EVERY 8 HOURS GT 11/20/18 14:00 12/20/18 13:59 11/20/18 21:13 Hydralazine HCl (Apresoline) 10 mg Q6H PRN IV For High Blood Pressure 11/11/18 14:39 12/11/18 14:38 Insulin Aspart (NovoLOG) EVERY 6 HOURS SUBQ 11/12/18 12:00 12/01/18 06:29 11/21/18 00:06 Lansoprazole (Prevacid) 30 mg BID GT 11/20/18 09:00 12/20/18 08:59 11/20/18 18:21 Lorazepam (Ativan) 1 mg EVERY 6 HOURS PRN GT For Anxiety 11/20/18 22:00 11/27/18 21:59 Micafungin Sodium 100 mg/Sodium Chloride 110 ml @ 110 mls/hr Q24H IVPB 11/13/18 18:00 11/24/18 17:59 11/20/18 18:43 Morphine Sulfate (Morphine Sulfate) 0.5 mg Q4H PRN IVP severe pain(7-10) 11/16/18 21:45 11/23/18 21:37 11/21/18 03:43 Nicotine (Nicoderm) 1 patch Q24H TDERMAL 11/11/18 22:15 12/01/18 22:14 11/20/18 22:47 Olanzapine (ZyPREXA) 2.5 mg BEDTIME NG 11/13/18 21:00 12/13/18 20:59 11/20/18 21:07 Olanzapine (ZyPREXA) 2.5 mg Q6H PRN ORAL agitation 11/15/18 23:00 12/15/18 22:59 Polyethylene Glycol (Miralax) 17 gm DAILYPRN PRN NG Constipation 11/12/18 19:00 12/11/18 15:29 11/13/18 05:30 Sevelamer Carbonate (Renvela) 800 mg Q8HR GT 11/20/18 14:00 12/20/18 13:59 11/20/18 21:14 Tacrolimus (Prograf) 2 mg MoWeFr@0000,1200 ORAL 11/13/18 00:00 12/02/18 00:00 11/20/18 12:05 Tacrolimus (Prograf) 2 mg SuTuThSa@0900,2100 ORAL 11/17/18 21:00 12/17/18 20:59 11/19/18 20:11 Vancomycin HCl (Vanco rx to dose) 1 ea DAILY PRN MISC Per rx protocol 11/14/18 14:45 12/14/18 14:44 Current Medications Medications (Trade) Dose Ordered Sig/Aleks Route PRN Reason Start Time Stop Time Status Last Admin Dose Admin Acetaminophen (Tylenol) 650 mg Q4H PRN NG Mild Pain/Temp > 100.5 11/12/18 19:00 12/12/18 18:47 Aspirin (ASA) 81 mg DAILY GT 11/20/18 09:00 12/20/18 08:59 11/20/18 08:35 Atorvastatin Calcium (Lipitor) 10 mg BEDTIME NG 11/12/18 21:00 12/02/18 20:59 11/20/18 21:01 Aztreonam 0.5 gm/ Dextrose 55 ml @ 110 mls/hr Q12H IVPB 11/20/18 21:00 11/27/18 20:59 11/20/18 21:13 Chlorhexidine Gluconate (Glo-Hex 2%) 1 applic DAILY@1999 TOPIC 11/11/18 20:00 12/08/18 19:59 11/20/18 21:01 Collagenase (Santyl) 1 applic DAILY@2099 TOPIC 11/14/18 21:00 12/14/18 20:59 11/20/18 21:13 Dextrose (Dextrose 50%) 25 ml Q30M PRN IV Hypoglycemia 11/11/18 14:45 11/30/18 22:44 Dextrose (Dextrose 50%) 50 ml Q30M PRN IV Hypoglycemia 11/11/18 14:45 11/30/18 22:44 Docusate Sodium (Colace) 100 mg EVERY 8 HOURS GT 11/20/18 14:00 12/20/18 13:59 11/20/18 21:13 Hydralazine HCl (Apresoline) 10 mg Q6H PRN IV For High Blood Pressure 11/11/18 14:39 12/11/18 14:38 Insulin Aspart (NovoLOG) EVERY 6 HOURS SUBQ 11/12/18 12:00 12/01/18 06:29 11/21/18 00:06 Lansoprazole (Prevacid) 30 mg BID GT 11/20/18 09:00 12/20/18 08:59 11/20/18 18:21 Lorazepam (Ativan) 1 mg EVERY 6 HOURS PRN GT For Anxiety 11/20/18 22:00 11/27/18 21:59 Micafungin Sodium 100 mg/Sodium Chloride 110 ml @ 110 mls/hr Q24H IVPB 11/13/18 18:00 11/24/18 17:59 11/20/18 18:43 Morphine Sulfate (Morphine Sulfate) 0.5 mg Q4H PRN IVP severe pain(7-10) 11/16/18 21:45 11/23/18 21:37 11/21/18 03:43 Nicotine (Nicoderm) 1 patch Q24H TDERMAL 11/11/18 22:15 12/01/18 22:14 11/20/18 22:47 Olanzapine (ZyPREXA) 2.5 mg BEDTIME NG 11/13/18 21:00 12/13/18 20:59 11/20/18 21:07 Olanzapine (ZyPREXA) 2.5 mg Q6H PRN ORAL agitation 11/15/18 23:00 12/15/18 22:59 Polyethylene Glycol (Miralax) 17 gm DAILYPRN PRN NG Constipation 11/12/18 19:00 12/11/18 15:29 11/13/18 05:30 Sevelamer Carbonate (Renvela) 800 mg Q8HR GT 11/20/18 14:00 12/20/18 13:59 11/20/18 21:14 Tacrolimus (Prograf) 2 mg MoWeFr@0000,1200 ORAL 11/13/18 00:00 12/02/18 00:00 11/20/18 12:05 Tacrolimus (Prograf) 2 mg SuTuThSa@0900,2100 ORAL 11/17/18 21:00 12/17/18 20:59 11/19/18 20:11 Vancomycin HCl (Vanco rx to dose) 1 ea DAILY PRN MISC Per rx protocol 11/14/18 14:45 12/14/18 14:44 Christina Perez DO Nov 21, 2018 07:14
[2018-11-21 08:00] VITALS: BP 147/53
[2018-11-21] MEDS: Aspirin Baby 81mg GT SCH (08:33)
[2018-11-21] MEDS: Aztreonam Inj 0.5 GM in D5W 55 ML IVPB SCH ×2 (09:15→21:33)
[2018-11-21 12:00] VITALS: BP 136/66
--- NOTE | 2018-11-21 12:25 | Nephrology Progress Note ---
Assessment/Plan Problem List: (1) ESRD (end stage renal disease) on dialysis (2) Foot ulcer (3) CHF (congestive heart failure) (4) Pacemaker (5) Acute respiratory failure Assessment: with Co2 retention Assessment ESRD with high K and SOB on admit Foot ulcer, likely infected High Troponin likely NSTMI Pacer , Pleural effusion s/p CABGS s/p Liver transplant Plan Now has tracheostomy and PEG Adjust BP meds HD next 11/23- Antibiotics by ID start tube feeding / hasPEG per cardio and ID Podiatry and Vascular surgical fu ? DC planning? Subjective ROS Limited/Unobtainable: No Constitutional: Reports: malaise Objective Objective Last 24 Hour Vital Signs Date Time Temp Pulse Resp B/P (MAP) Pulse Ox O2 Delivery O2 Flow Rate FiO2 11/21/18 12:00 40 11/21/18 12:00 Mechanical Ventilator 11/21/18 11:15 66 20 40 11/21/18 09:01 65 21 40 11/21/18 08:00 40 11/21/18 08:00 71 11/21/18 08:00 97.9 71 22 147/53 (84) 100 11/21/18 08:00 Mechanical Ventilator 11/21/18 08:00 97.2 71 22 147/53 (84) 100 11/21/18 08:00 40 11/21/18 07:21 Mechanical Ventilator 40 11/21/18 07:21 100 Mechanical Ventilator 40 11/21/18 07:19 70 23 40 11/21/18 05:09 69 20 40 11/21/18 04:00 Mechanical Ventilator 11/21/18 04:00 70 11/21/18 04:00 98.0 74 25 153/49 (83) 98 11/21/18 04:00 60 11/21/18 03:14 74 28 40 11/21/18 01:01 68 20 40 11/21/18 00:00 98.4 69 20 120/41 (67) 100 11/21/18 00:00 Mechanical Ventilator 11/21/18 00:00 68 11/20/18 23:17 69 21 40 11/20/18 21:10 69 19 40 11/20/18 20:00 Mechanical Ventilator 11/20/18 20:00 60 11/20/18 20:00 65 11/20/18 20:00 98.0 66 19 102/50 (67) 100 11/20/18 18:58 100 Mechanical Ventilator 40 11/20/18 18:58 Mechanical Ventilator 40 11/20/18 18:56 66 21 40 11/20/18 17:04 65 20 40 11/20/18 16:00 40 11/20/18 16:00 64 11/20/18 16:00 97.8 64 20 160/64 (96) 100 11/20/18 16:00 Mechanical Ventilator 11/20/18 15:00 64 22 40 11/20/18 13:29 65 22 40 Intake and Output 11/20/18 11/21/18 18:59 06:59 Intake Total 740 ml 730 ml Output Total 2000 ml Balance -1260 ml 730 ml Free Water 200 ml 190 ml Tube Feeding 540 ml 540 ml Hemodialysis UF 2000 ml Height (Feet): 5 Height (Inches): 5.00 Weight (Pounds): 200 EENT: other - trach Cardiovascular: normal rate Respiratory/Chest: decreased breath sounds Abdomen: soft, distended, other - PEG Objective no other change Nakul Stevens MD Nov 21, 2018 12:25
--- NOTE | 2018-11-21 15:38 | Infectious Diseases Prog Note ---
Assessment/Plan Problems: (1) Fever Assessment & Plan: with mild leukocytosis suspect due to massive recurrent right side pleural effusion with possible pneumonia , S/P repeated thoracentesis with removal of 1.5 liter of fluids , continue vancomycin and aztreonam empirically for 8 days , monitor cultures (2) Thrush, oral Assessment & Plan: continue local nystatin , and iv micafungin to treat him since fluconazole has many interaction with his transplants meds . may need to rule out esophageal sergio since immunocompromised (3) HCV antibody positive Assessment & Plan: no evidence of active infection, with undetectable viral load , suspect due to previous infection , cleared, S/P liver transplant . (4) Foot ulcer Assessment & Plan: in diabetic patient , with MRSA , S/P vancomycin treatment with HD for two weeks , pending vascular eval and possible surgical debridement. bone scan ruled out osteomyelitis of the heel . 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 now improving, pulmonary is following (9) Pleural effusion Assessment & Plan: recurrent on the right, with lung collapse , S/P thoracentesis X2 with removal of 1.5 cc of clear fluids. PREVIOUS culture were negative with negative cytology Subjective Constitutional: Reports: no symptoms HEENT: Reports: no symptoms Respiratory: Reports: no symptoms Breasts: Reports: no symptoms Cardiovascular: Reports: no symptoms Gastrointestinal/Abdominal: Reports: no symptoms Genitourinary: Reports: no symptoms Neurologic: Reports: no symptoms Psychiatric: Reports: no symptoms Skin: Reports: no symptoms Endocrine: Reports: no symptoms Hematologic: Reports: no symptoms Musculoskeletal: Reports: no symptoms Allergies: Coded Allergies: CEPHALEXIN (Unverified Allergy, Unknown, 02/24/14) SULFAMETHOXAZOLE (Unverified Allergy, Unknown, 02/24/14) TRIMETHOPRIM (Unverified Allergy, Unknown, 02/24/14) Subjective he was feeling good , has less facial swelling and tongue swelling , awake and responsive, no fever or chills, no significant secretions , no SOB . has less thrush on his tongue Objective Vital Signs Last 24 Hour Vital Signs Date Time Temp Pulse Resp B/P (MAP) Pulse Ox O2 Delivery O2 Flow Rate FiO2 11/21/18 14:53 65 21 40 11/21/18 13:31 71 136/66 11/21/18 12:50 71 28 40 11/21/18 12:00 40 11/21/18 12:00 Mechanical Ventilator 11/21/18 12:00 97.8 70 18 136/66 (89) 100 11/21/18 12:00 75 11/21/18 11:15 66 20 40 11/21/18 09:01 65 21 40 11/21/18 08:00 40 11/21/18 08:00 71 11/21/18 08:00 97.9 71 22 147/53 (84) 100 11/21/18 08:00 Mechanical Ventilator 11/21/18 08:00 97.2 71 22 147/53 (84) 100 11/21/18 08:00 40 11/21/18 07:21 Mechanical Ventilator 40 11/21/18 07:21 100 Mechanical Ventilator 40 11/21/18 07:19 70 23 40 11/21/18 05:09 69 20 40 11/21/18 04:00 Mechanical Ventilator 11/21/18 04:00 70 11/21/18 04:00 98.0 74 25 153/49 (83) 98 11/21/18 04:00 60 11/21/18 03:14 74 28 40 11/21/18 01:01 68 20 40 11/21/18 00:00 98.4 69 20 120/41 (67) 100 11/21/18 00:00 Mechanical Ventilator 11/21/18 00:00 68 11/20/18 23:17 69 21 40 11/20/18 21:10 69 19 40 11/20/18 20:00 Mechanical Ventilator 11/20/18 20:00 60 11/20/18 20:00 65 11/20/18 20:00 98.0 66 19 102/50 (67) 100 11/20/18 18:58 100 Mechanical Ventilator 40 11/20/18 18:58 Mechanical Ventilator 40 11/20/18 18:56 66 21 40 11/20/18 17:04 65 20 40 11/20/18 16:00 40 11/20/18 16:00 64 11/20/18 16:00 97.8 64 20 160/64 (96) 100 11/20/18 16:00 Mechanical Ventilator Height (Feet): 5 Height (Inches): 5.00 Weight (Pounds): 200 General Appearance: WD/WN, no acute distress HEENT: normocephalic, atraumatic, anicteric, mucous membranes moist, PERRL, EOMI, pharynx normal, no JVD, status post trach, thrush Respiratory/Chest: chest wall non-tender, lungs clear, normal breath sounds, no respiratory distress, no accessory muscle use Cardiovascular: normal peripheral pulses, normal rate, regular rhythm, no gallop/murmur, no JVD Abdomen: normal bowel sounds, soft, non tender, no organomegaly, non distended , no mass, no scars Genitourinary: normal external genitalia Extremities: no cyanosis, no clubbing Skin: no rash, no lesions, no ulcers 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: 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, no motor/sensory deficits, alert, responsive Lymphatic: no neck adenopathy, no groin adenopathy Musculoskeletal: normal muscle bulk, no effusion Current Medications Medications (Trade) Dose Ordered Sig/Aleks Route PRN Reason Start Time Stop Time Status Last Admin Dose Admin Acetaminophen (Tylenol) 650 mg Q4H PRN NG Mild Pain/Temp > 100.5 11/12/18 19:00 12/12/18 18:47 Amlodipine Besylate (Norvasc) 2.5 mg DAILY GT 11/22/18 09:00 12/22/18 08:59 Aspirin (ASA) 81 mg DAILY GT 11/20/18 09:00 12/20/18 08:59 11/21/18 08:33 Atorvastatin Calcium (Lipitor) 10 mg BEDTIME NG 11/12/18 21:00 12/02/18 20:59 11/20/18 21:01 Aztreonam 0.5 gm/ Dextrose 55 ml @ 110 mls/hr Q12H IVPB 11/20/18 21:00 11/27/18 20:59 11/21/18 09:15 Chlorhexidine Gluconate (Glo-Hex 2%) 1 applic DAILY@2000 TOPIC 11/11/18 20:00 12/08/18 19:59 11/20/18 21:01 Collagenase (Santyl) 1 applic DAILY@2100 TOPIC 11/14/18 21:00 12/14/18 20:59 11/20/18 21:13 Dextrose (Dextrose 50%) 25 ml Q30M PRN IV Hypoglycemia 11/11/18 14:45 11/30/18 22:44 Dextrose (Dextrose 50%) 50 ml Q30M PRN IV Hypoglycemia 11/11/18 14:45 11/30/18 22:44 Docusate Sodium (Colace) 100 mg EVERY 8 HOURS GT 11/20/18 14:00 12/20/18 13:59 11/21/18 13:31 Hydralazine HCl (Apresoline) 10 mg Q6H PRN IV For High Blood Pressure 11/11/18 14:39 12/11/18 14:38 Insulin Aspart (NovoLOG) EVERY 6 HOURS SUBQ 11/12/18 12:00 12/01/18 06:29 11/21/18 12:29 Lansoprazole (Prevacid) 30 mg BID GT 11/20/18 09:00 12/20/18 08:59 11/21/18 08:33 Lorazepam (Ativan) 1 mg EVERY 6 HOURS PRN GT For Anxiety 11/20/18 22:00 11/27/18 21:59 Micafungin Sodium 100 mg/Sodium Chloride 110 ml @ 110 mls/hr Q24H IVPB 11/13/18 18:00 11/24/18 17:59 11/20/18 18:43 Morphine Sulfate (Morphine Sulfate) 0.5 mg Q4H PRN IVP severe pain(7-10) 11/16/18 21:45 11/23/18 21:37 11/21/18 13:31 Nicotine (Nicoderm) 1 patch Q24H TDERMAL 11/11/18 22:15 12/01/18 22:14 11/20/18 22:47 Olanzapine (ZyPREXA) 2.5 mg BEDTIME NG 11/13/18 21:00 12/13/18 20:59 11/20/18 21:07 Olanzapine (ZyPREXA) 2.5 mg Q6H PRN ORAL agitation 11/15/18 23:00 12/15/18 22:59 Polyethylene Glycol (Miralax) 17 gm DAILYPRN PRN NG Constipation 11/12/18 19:00 12/11/18 15:29 11/13/18 05:30 Sevelamer Carbonate (Renvela) 800 mg Q8HR GT 11/20/18 14:00 12/20/18 13:59 11/21/18 13:31 Tacrolimus (Prograf) 2 mg MoWeFr@0000,1200 ORAL 11/13/18 00:00 12/02/18 00:00 11/20/18 12:05 Tacrolimus (Prograf) 2 mg SuTuThSa@0900,2100 ORAL 11/17/18 21:00 12/17/18 20:59 11/21/18 09:15 Vancomycin HCl (Vanco rx to dose) 1 ea DAILY PRN MISC Per rx protocol 11/14/18 14:45 12/14/18 14:44 Francois Landis M.D. Nov 21, 2018 15:38
--- NOTE | 2018-11-21 15:40 | Cardiac Electrophysiology PN ---
Assessment/Plan Assessment/Plan 1. Troponin elevation. No chest pain. Hx of CABG. Due to renal failure. On Coreg 6.25 mg bid, aspirin and Lipitor 2. S/P CABG 3. Nonsustained ventricular tachycardia. 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 EF 55%. No Syncope 4. Congestive heart failure. On hemodialysis 5. End-stage renal disease, on hemodialysis per Dr. Stevens 6. Status post right sided [employer] dual chamber pacemaker with Nl Fx. 7. Right foot ulcer. Antibiotic per Dr. Landis. FU by Dr. Huizar 8. History of liver transplant on Prograf 9. Respiratory failure, ? etiology anaphylaxis. S/P Emergency tracheostomy. Weaned off the vent on T Piece 10. Pleural effusion. FU Dr. Mendoza 11. Dysphagia, S/P PEG DW RN Subjective Subjective On the vent via tracheostomy. Alert in NAD Objective Last 24 Hour Vital Signs Date Time Temp Pulse Resp B/P (MAP) Pulse Ox O2 Delivery O2 Flow Rate FiO2 11/21/18 14:53 65 21 40 11/21/18 13:31 71 136/66 11/21/18 12:50 71 28 40 11/21/18 12:00 40 11/21/18 12:00 Mechanical Ventilator 11/21/18 12:00 97.8 70 18 136/66 (89) 100 11/21/18 12:00 75 11/21/18 11:15 66 20 40 11/21/18 09:01 65 21 40 11/21/18 08:00 40 11/21/18 08:00 71 11/21/18 08:00 97.9 71 22 147/53 (84) 100 11/21/18 08:00 Mechanical Ventilator 11/21/18 08:00 97.2 71 22 147/53 (84) 100 11/21/18 08:00 40 11/21/18 07:21 Mechanical Ventilator 40 11/21/18 07:21 100 Mechanical Ventilator 40 11/21/18 07:19 70 23 40 11/21/18 05:09 69 20 40 11/21/18 04:00 Mechanical Ventilator 11/21/18 04:00 70 11/21/18 04:00 98.0 74 25 153/49 (83) 98 11/21/18 04:00 60 11/21/18 03:14 74 28 40 11/21/18 01:01 68 20 40 11/21/18 00:00 98.4 69 20 120/41 (67) 100 11/21/18 00:00 Mechanical Ventilator 11/21/18 00:00 68 11/20/18 23:17 69 21 40 11/20/18 21:10 69 19 40 11/20/18 20:00 Mechanical Ventilator 11/20/18 20:00 60 11/20/18 20:00 65 11/20/18 20:00 98.0 66 19 102/50 (67) 100 11/20/18 18:58 100 Mechanical Ventilator 40 11/20/18 18:58 Mechanical Ventilator 40 11/20/18 18:56 66 21 40 11/20/18 17:04 65 20 40 11/20/18 16:00 40 11/20/18 16:00 64 11/20/18 16:00 97.8 64 20 160/64 (96) 100 11/20/18 16:00 Mechanical Ventilator Intake and Output 11/20/18 11/21/18 18:59 06:59 Intake Total 740 ml 730 ml Output Total 2000 ml Balance -1260 ml 730 ml Free Water 200 ml 190 ml Tube Feeding 540 ml 540 ml Hemodialysis UF 2000 ml Objective HEAD AND NECK: No JVD.Tracheostomy intact LUNGS: Coarse rhonchi. CARDIOVASCULAR: Regular S1 and S2 with no gallop. Sternotomy is intact Pacemaker in the right subclavian ABDOMEN: Soft.PEG in place EXTREMITIES: 1+ pitting edema Shivam Sharpe MD Nov 21, 2018 15:40
[2018-11-21 16:00] VITALS: BP 121/52
[2018-11-21] MEDS ORDERED: NS 275ml ONE ×2 (16:57→17:08)
[2018-11-21] MEDS ORDERED: Tubing IV Secondary IV ONE ×2 (16:57→17:08)
[2018-11-21] MEDS ORDERED: NS 500ML ONE (17:08)
[2018-11-21] MEDS: Micafungin 100 MG in NS 110 ML IVPB SCH (17:16)
[2018-11-21] MEDS ORDERED: Vancomycin 1gm/D5W 275ml IVPB ONE ×2 (17:30)
[2018-11-21 20:00] VITALS: BP 110/60
[2018-11-21] MEDS: Dyna-Hex 2% Top Sol 2oz TOPIC SCH (20:29)
[2018-11-21] MEDS: OLANZapine 2.5mg tab NG SCH (21:32)
[2018-11-22] VITALS: BP 123/81
[2018-11-22] MEDS: NovoLOG Insulin Flexpen SUBQ SCH ×4 (00:05→18:27)
[2018-11-22] MEDS: Morphine Sulfate 2mg/ml Inj(IV/IM USE ONLY) IVP PRN ×4 (00:06→19:57)
[2018-11-22 04:00] VITALS: BP 120/70
[2018-11-22] MEDS: Docusate 100mg/10ml Liq GT SCH ×3 (05:49→22:01)
[2018-11-22] MEDS: Renvela 800mg Pkt GT SCH ×3 (05:49→22:01)
[2018-11-22 05:57] LABS: BASOPHILS % (AUTO) 0.6 % (0.0-2.0); EOSINOPHILS % (AUTO) 0.1 % (0.0-3.0); HEMATOCRIT 38.3 % (42.0-52.0); HEMOGLOBIN 11.7 G/DL (14.2-18.0); LYMPHOCYTES % (AUTO) 17.2 % (20.0-45.0); MEAN CORPUSCULAR VOLUME 82 FL (80-99); MONOCYTES % (AUTO) 6.3 % (1.0-10.0); NEUTROPHILS % (AUTO) 75.9 % (45.0-75.0); PLATELET COUNT 195 K/UL (150-450); RED BLOOD COUNT 4.67 M/UL (4.70-6.10); RED CELL DISTRIBUTION WIDTH 17.4 % (11.6-14.8)
[2018-11-22 06:21] LABS: ALANINE AMINOTRANSFERASE 11 U/L (12-78); ALBUMIN 2.2 G/DL (3.4-5.0); ALBUMIN/GLOBULIN RATIO 0.5 (1.0-2.7); ALKALINE PHOSPHATASE 77 U/L (46-116); ANION GAP 8 mmol/L (5-15); ASPARTATE AMINO TRANSFERASE 10 U/L (15-37); BILIRUBIN,TOTAL 0.3 MG/DL (0.2-1.0); BLOOD UREA NITROGEN 71 mg/dL (7-18); CALCIUM 9.2 MG/DL (8.5-10.1); CARBON DIOXIDE 30 MMOL/L (21-32); CHLORIDE 95 MMOL/L (98-107); GAMMA GLUTAMYL TRANSPEPTIDASE 16 U/L (5-85); PHOSPHORUS 3.5 MG/DL (2.5-4.9); POTASSIUM 4.3 MMOL/L (3.5-5.1); SODIUM 133 MMOL/L (136-145)
--- NOTE | 2018-11-22 06:53 | Pulmonology Progress Note ---
Assessment/Plan Assessment/Plan 1. Resp failure, hypercapneic 2. End-stage renal disease, on dialysis, status post multiple upper extremity vascular procedures. 3. Coronary artery bypass surgery. 4. Diabetes. 5. Dysphonia, tongue swelling; s/p trach PLAN: trach collar at times tongue less improved tolerates feeds nebs and prn suction pt LTAC when bed available Subjective Constitutional: Reports: no symptoms HEENT: Repors: no symptoms Respiratory: Reports: sputum, shortness of breath Cardiovascular: Reports: no symptoms Gastrointestinal/Abdominal: Reports: no symptoms Genitourinary: Reports: no symptoms Allergies: Coded Allergies: CEPHALEXIN (Unverified Allergy, Unknown, 02/24/14) SULFAMETHOXAZOLE (Unverified Allergy, Unknown, 02/24/14) TRIMETHOPRIM (Unverified Allergy, Unknown, 02/24/14) Subjective awake minimal secretions on vent no cp nv or bleeding not getting oob positive uop tongue swelling resolved Objective Last 24 Hour Vital Signs Date Time Temp Pulse Resp B/P (MAP) Pulse Ox O2 Delivery O2 Flow Rate FiO2 11/22/18 05:04 75 19 40 11/22/18 04:00 98.2 72 20 120/70 (87) 100 11/22/18 04:00 Mechanical Ventilator 11/22/18 04:00 40 11/22/18 04:00 73 11/22/18 03:12 72 21 40 11/22/18 01:20 75 21 40 11/22/18 00:00 40 11/22/18 00:00 Mechanical Ventilator 11/22/18 00:00 98.2 72 22 123/81 (95) 100 11/22/18 00:00 72 11/21/18 23:23 73 22 40 11/21/18 21:30 69 21 40 11/21/18 20:00 70 11/21/18 20:00 Mechanical Ventilator 11/21/18 20:00 40 11/21/18 20:00 98.2 71 22 110/60 (77) 100 11/21/18 19:23 99 Mechanical Ventilator 40 11/21/18 19:23 96 18 40 11/21/18 19:23 Mechanical Ventilator 40 11/21/18 16:51 67 19 40 11/21/18 16:00 97.3 80 16 121/52 (75) 100 11/21/18 16:00 66 11/21/18 16:00 Mechanical Ventilator 11/21/18 16:00 40 11/21/18 14:53 65 21 40 11/21/18 13:31 71 136/66 11/21/18 12:50 71 28 40 11/21/18 12:00 40 11/21/18 12:00 Mechanical Ventilator 11/21/18 12:00 97.8 70 18 136/66 (89) 100 11/21/18 12:00 75 11/21/18 11:15 66 20 40 11/21/18 09:01 65 21 40 11/21/18 08:00 40 11/21/18 08:00 71 11/21/18 08:00 97.9 71 22 147/53 (84) 100 11/21/18 08:00 Mechanical Ventilator 11/21/18 08:00 97.2 71 22 147/53 (84) 100 11/21/18 08:00 40 11/21/18 07:21 Mechanical Ventilator 40 11/21/18 07:21 100 Mechanical Ventilator 40 11/21/18 07:19 70 23 40 Intake and Output 11/21/18 11/22/18 19:00 07:00 Intake Total 1018.708 ml 726.292 ml Balance 1018.708 ml 726.292 ml Free Water 130 ml 140 ml IV Total 348.708 ml 91.292 ml Tube Feeding 540 ml 495 ml General Appearance: WD/WN Respiratory/Chest: lungs clear Cardiovascular: normal peripheral pulses, regular rhythm Abdomen: no organomegaly, non distended Extremities: no clubbing Skin: no lesions 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: alert, oriented x 3 Laboratory Tests 11/21/18 15:30: Random Vancomycin Level 14.5 11/22/18 04:00: White Blood Count 9.0, Red Blood Count 4.67L, Hemoglobin 11.7L, Hematocrit 38.3L , Mean Corpuscular Volume 82, Mean Corpuscular Hemoglobin 25.1L, Mean Corpuscular Hemoglobin Concent 30.6L, Red Cell Distribution Width 17.4H, Platelet Count 195, Mean Platelet Volume 7.2, Neutrophils (%) (Auto) 75.9H, Lymphocytes (%) (Auto) 17.2L, Monocytes (%) (Auto) 6.3, Eosinophils (%) (Auto) 0.1, Basophils (%) (Auto) 0.6, Sodium Level 133L, Potassium Level 4.3, Chloride Level 95L, Carbon Dioxide Level 30, Anion Gap 8, Blood Urea Nitrogen 71H, Creatinine 8.0H, Estimat Glomerular Filtration Rate 6.8, Glucose Level 107H, Uric Acid 4.7, Calcium Level 9.2, Phosphorus Level 3.5, Magnesium Level 2.3, Total Bilirubin 0.3, Gamma Glutamyl Transpeptidase 16, Aspartate Amino Transf ( AST/SGOT) 10L, Alanine Aminotransferase (ALT/SGPT) 11L, Alkaline Phosphatase 77 , C-Reactive Protein, Quantitative 6.2H, Pro-B-Type Natriuretic Peptide > 71315L , Total Protein 6.6, Albumin 2.2L, Globulin 4.4, Albumin/Globulin Ratio 0.5L Current Medications Medications (Trade) Dose Ordered Sig/Aleks Route PRN Reason Start Time Stop Time Status Last Admin Dose Admin Acetaminophen (Tylenol) 650 mg Q4H PRN NG Mild Pain/Temp > 100.5 11/12/18 19:00 12/12/18 18:47 Amlodipine Besylate (Norvasc) 2.5 mg DAILY GT 11/22/18 09:00 12/22/18 08:59 Aspirin (ASA) 81 mg DAILY GT 11/20/18 09:00 12/20/18 08:59 11/21/18 08:33 Atorvastatin Calcium (Lipitor) 10 mg BEDTIME NG 11/12/18 21:00 12/02/18 20:59 11/21/18 21:32 Aztreonam 0.5 gm/ Dextrose 55 ml @ 110 mls/hr Q12H IVPB 11/20/18 21:00 11/27/18 20:59 11/21/18 21:33 Chlorhexidine Gluconate (Glo-Hex 2%) 1 applic DAILY@1999 TOPIC 11/11/18 20:00 12/08/18 19:59 11/21/18 20:29 Collagenase (Santyl) 1 applic DAILY@2099 TOPIC 11/14/18 21:00 12/14/18 20:59 11/21/18 21:34 Dextrose (Dextrose 50%) 25 ml Q30M PRN IV Hypoglycemia 11/11/18 14:45 11/30/18 22:44 Dextrose (Dextrose 50%) 50 ml Q30M PRN IV Hypoglycemia 11/11/18 14:45 11/30/18 22:44 Docusate Sodium (Colace) 100 mg EVERY 8 HOURS GT 11/20/18 14:00 12/20/18 13:59 11/22/18 05:49 Hydralazine HCl (Apresoline) 10 mg Q6H PRN IV For High Blood Pressure 11/11/18 14:39 12/11/18 14:38 Insulin Aspart (NovoLOG) EVERY 6 HOURS SUBQ 11/12/18 12:00 12/01/18 06:29 11/22/18 05:49 Lansoprazole (Prevacid) 30 mg BID GT 11/20/18 09:00 12/20/18 08:59 11/21/18 17:15 Lorazepam (Ativan) 1 mg EVERY 6 HOURS PRN GT For Anxiety 11/20/18 22:00 11/27/18 21:59 Micafungin Sodium 100 mg/Sodium Chloride 110 ml @ 110 mls/hr Q24H IVPB 11/13/18 18:00 11/24/18 17:59 11/21/18 17:16 Morphine Sulfate (Morphine Sulfate) 0.5 mg Q4H PRN IVP severe pain(7-10) 11/16/18 21:45 11/23/18 21:37 11/22/18 04:05 Nicotine (Nicoderm) 1 patch Q24H TDERMAL 11/11/18 22:15 12/01/18 22:14 11/21/18 21:33 Olanzapine (ZyPREXA) 2.5 mg BEDTIME NG 11/13/18 21:00 12/13/18 20:59 11/21/18 21:32 Olanzapine (ZyPREXA) 2.5 mg Q6H PRN ORAL agitation 11/15/18 23:00 12/15/18 22:59 Polyethylene Glycol (Miralax) 17 gm DAILYPRN PRN NG Constipation 11/12/18 19:00 12/11/18 15:29 11/13/18 05:30 Sevelamer Carbonate (Renvela) 800 mg Q8HR GT 11/20/18 14:00 12/20/18 13:59 11/22/18 05:49 Tacrolimus (Prograf) 2 mg MoWeFr@0000,1200 ORAL 11/13/18 00:00 12/02/18 00:00 11/20/18 12:05 Tacrolimus (Prograf) 2 mg SuTuThSa@0900,2100 ORAL 11/17/18 21:00 12/17/18 20:59 11/21/18 21:32 Vancomycin HCl (Vanco rx to dose) 1 ea DAILY PRN MISC Per rx protocol 11/14/18 14:45 12/14/18 14:44 Christina Perez DO Nov 22, 2018 06:53
[2018-11-22 08:00] VITALS: BP 154/85
[2018-11-22] MEDS: Aspirin Baby 81mg GT SCH (08:40)
[2018-11-22] MEDS: Aztreonam Inj 0.5 GM in D5W 55 ML IVPB SCH ×2 (09:23→22:04)
[2018-11-22 12:00] VITALS: BP 157/87
--- NOTE | 2018-11-22 13:28 | Nephrology Progress Note ---
Assessment/Plan Problem List: (1) ESRD (end stage renal disease) on dialysis (2) Foot ulcer (3) CHF (congestive heart failure) (4) Pacemaker (5) Acute respiratory failure Assessment: with Co2 retention Assessment ESRD with high K and SOB on admit Foot ulcer, likely infected High Troponin likely NSTMI Pacer , Pleural effusion s/p CABGS s/p Liver transplant Plan Now has tracheostomy and PEG Adjust BP meds HD next 11/23- Antibiotics by ID start tube feeding / hasPEG per cardio and ID Podiatry and Vascular surgical fu ? DC planning? Subjective ROS Limited/Unobtainable: No Constitutional: Reports: malaise Objective Objective Last 24 Hour Vital Signs Date Time Temp Pulse Resp B/P (MAP) Pulse Ox O2 Delivery O2 Flow Rate FiO2 11/22/18 13:13 74 21 40 11/22/18 12:00 40 11/22/18 12:00 Mechanical Ventilator 11/22/18 11:03 70 22 40 11/22/18 09:10 69 22 40 11/22/18 08:40 74 154/85 11/22/18 08:00 40 11/22/18 08:00 Mechanical Ventilator 11/22/18 08:00 75 11/22/18 08:00 97.7 74 20 154/85 (108) 100 11/22/18 07:20 75 20 40 11/22/18 07:20 Mechanical Ventilator 40 11/22/18 07:20 100 Mechanical Ventilator 40 11/22/18 05:04 75 19 40 11/22/18 04:00 98.2 72 20 120/70 (87) 100 11/22/18 04:00 Mechanical Ventilator 11/22/18 04:00 40 11/22/18 04:00 73 11/22/18 03:12 72 21 40 11/22/18 01:20 75 21 40 11/22/18 00:00 40 11/22/18 00:00 Mechanical Ventilator 11/22/18 00:00 98.2 72 22 123/81 (95) 100 11/22/18 00:00 72 11/21/18 23:23 73 22 40 11/21/18 21:30 69 21 40 11/21/18 20:00 70 11/21/18 20:00 Mechanical Ventilator 11/21/18 20:00 40 11/21/18 20:00 98.2 71 22 110/60 (77) 100 11/21/18 19:23 99 Mechanical Ventilator 40 11/21/18 19:23 96 18 40 11/21/18 19:23 Mechanical Ventilator 40 11/21/18 16:51 67 19 40 11/21/18 16:00 97.3 80 16 121/52 (75) 100 11/21/18 16:00 66 11/21/18 16:00 Mechanical Ventilator 11/21/18 16:00 40 11/21/18 14:53 65 21 40 11/21/18 13:31 71 136/66 Intake and Output 11/21/18 11/22/18 18:59 06:59 Intake Total 1018.708 ml 771.292 ml Balance 1018.708 ml 771.292 ml Free Water 130 ml 140 ml IV Total 348.708 ml 91.292 ml Tube Feeding 540 ml 540 ml Laboratory Tests 11/21/18 15:30: Random Vancomycin Level 14.5 11/22/18 04:00: White Blood Count 9.0, Red Blood Count 4.67L, Hemoglobin 11.7L, Hematocrit 38.3L , Mean Corpuscular Volume 82, Mean Corpuscular Hemoglobin 25.1L, Mean Corpuscular Hemoglobin Concent 30.6L, Red Cell Distribution Width 17.4H, Platelet Count 195, Mean Platelet Volume 7.2, Neutrophils (%) (Auto) 75.9H, Lymphocytes (%) (Auto) 17.2L, Monocytes (%) (Auto) 6.3, Eosinophils (%) (Auto) 0.1, Basophils (%) (Auto) 0.6, Sodium Level 133L, Potassium Level 4.3, Chloride Level 95L, Carbon Dioxide Level 30, Anion Gap 8, Blood Urea Nitrogen 71H, Creatinine 8.0H, Estimat Glomerular Filtration Rate 6.8, Glucose Level 107H, Uric Acid 4.7, Calcium Level 9.2, Phosphorus Level 3.5, Magnesium Level 2.3, Total Bilirubin 0.3, Gamma Glutamyl Transpeptidase 16, Aspartate Amino Transf ( AST/SGOT) 10L, Alanine Aminotransferase (ALT/SGPT) 11L, Alkaline Phosphatase 77 , C-Reactive Protein, Quantitative 6.2H, Pro-B-Type Natriuretic Peptide > 31718M , Total Protein 6.6, Albumin 2.2L, Globulin 4.4, Albumin/Globulin Ratio 0.5L Height (Feet): 5 Height (Inches): 5.00 Weight (Pounds): 204 General Appearance: no apparent distress EENT: other - trach Cardiovascular: normal rate Respiratory/Chest: decreased breath sounds Abdomen: distended Objective no other change Nakul Stevens MD Nov 22, 2018 13:28
[2018-11-22 16:00] VITALS: BP 128/49
--- NOTE | 2018-11-22 16:50 | Cardiac Electrophysiology PN ---
Assessment/Plan Assessment/Plan 1. Troponin leak with no chest pain. Hx of CABG. Due to renal failure. On Coreg 6.25 mg bid, aspirin and Lipitor 2. S/P CABG 3. Nonsustained ventricular tachycardia. Hx of old ID and CABG. EF 55%. No Syncope 4. Congestive heart failure. On hemodialysis 5. End-stage renal disease, on hemodialysis per Dr. Stevens 6. Status post right sided Medtronic dual chamber pacemaker with Nl Fx. 7. Right foot ulcer. Antibiotic per Dr. Landis. FU by Dr. Huizar 8. History of liver transplant on Prograf 9. Respiratory failure, ? etiology anaphylaxis. S/P Emergency tracheostomy. Weaned off the vent on T Piece 10. Pleural effusion. LANA Mendoza 11. Dysphagia, S/P PEG DW RN Subjective Subjective On the vent via tracheostomy.Paced rhythm Objective Last 24 Hour Vital Signs Date Time Temp Pulse Resp B/P (MAP) Pulse Ox O2 Delivery O2 Flow Rate FiO2 11/22/18 16:00 Mechanical Ventilator 11/22/18 16:00 40 11/22/18 14:42 72 24 40 11/22/18 13:13 74 21 40 11/22/18 12:00 40 11/22/18 12:00 97.7 68 18 157/87 (110) 100 11/22/18 12:00 71 11/22/18 12:00 Mechanical Ventilator 11/22/18 11:03 70 22 40 11/22/18 09:10 69 22 40 11/22/18 08:40 74 154/85 11/22/18 08:00 40 11/22/18 08:00 Mechanical Ventilator 11/22/18 08:00 75 11/22/18 08:00 97.7 74 20 154/85 (108) 100 11/22/18 07:20 75 20 40 11/22/18 07:20 Mechanical Ventilator 40 11/22/18 07:20 100 Mechanical Ventilator 40 11/22/18 05:04 75 19 40 11/22/18 04:00 98.2 72 20 120/70 (87) 100 11/22/18 04:00 Mechanical Ventilator 11/22/18 04:00 40 11/22/18 04:00 73 11/22/18 03:12 72 21 40 11/22/18 01:20 75 21 40 11/22/18 00:00 40 4/7/19 00:00 Mechanical Ventilator 11/22/18 00:00 98.2 72 22 123/81 (95) 100 11/22/18 00:00 72 11/21/18 23:23 73 22 40 11/21/18 21:30 69 21 40 11/21/18 20:00 70 11/21/18 20:00 Mechanical Ventilator 11/21/18 20:00 40 11/21/18 20:00 98.2 71 22 110/60 (77) 100 11/21/18 19:23 99 Mechanical Ventilator 40 11/21/18 19:23 96 18 40 11/21/18 19:23 Mechanical Ventilator 40 11/21/18 16:51 67 19 40 Intake and Output 11/21/18 11/22/18 18:59 06:59 Intake Total 1018.708 ml 771.292 ml Balance 1018.708 ml 771.292 ml Free Water 130 ml 140 ml IV Total 348.708 ml 91.292 ml Tube Feeding 540 ml 540 ml Laboratory Tests Test 11/22/18 04:00 White Blood Count 9.0 K/UL (4.8-10.8) Red Blood Count 4.67 M/UL (4.70-6.10) L Hemoglobin 11.7 G/DL (14.2-18.0) L Hematocrit 38.3 % (42.0-52.0) L Mean Corpuscular Volume 82 FL (80-99) Mean Corpuscular Hemoglobin 25.1 PG (27.0-31.0) L Mean Corpuscular Hemoglobin Concent 30.6 G/DL (32.0-36.0) L Red Cell Distribution Width 17.4 % (11.6-14.8) H Platelet Count 195 K/UL (150-450) Mean Platelet Volume 7.2 FL (6.5-10.1) Neutrophils (%) (Auto) 75.9 % (45.0-75.0) H Lymphocytes (%) (Auto) 17.2 % (20.0-45.0) L Monocytes (%) (Auto) 6.3 % (1.0-10.0) Eosinophils (%) (Auto) 0.1 % (0.0-3.0) Basophils (%) (Auto) 0.6 % (0.0-2.0) Sodium Level 133 MMOL/L (136-145) L Potassium Level 4.3 MMOL/L (3.5-5.1) Chloride Level 95 MMOL/L (98-107) L Carbon Dioxide Level 30 MMOL/L (21-32) Anion Gap 8 mmol/L (5-15) Blood Urea Nitrogen 71 mg/dL (7-18) H Creatinine 8.0 MG/DL (0.55-1.30) H Estimat Glomerular Filtration Rate 6.8 mL/min (>60) Glucose Level 107 MG/DL (74-106) H Uric Acid 4.7 MG/DL (2.6-7.2) Calcium Level 9.2 MG/DL (8.5-10.1) Phosphorus Level 3.5 MG/DL (2.5-4.9) Magnesium Level 2.3 MG/DL (1.8-2.4) Total Bilirubin 0.3 MG/DL (0.2-1.0) Gamma Glutamyl Transpeptidase 16 U/L (5-85) Aspartate Amino Transf (AST/SGOT) 10 U/L (15-37) L Alanine Aminotransferase (ALT/SGPT) 11 U/L (12-78) L Alkaline Phosphatase 77 U/L (46-116) C-Reactive Protein, Quantitative 6.2 mg/dL (0.00-0.90) H Pro-B-Type Natriuretic Peptide > 38847 pg/mL (0-125) H Total Protein 6.6 G/DL (6.4-8.2) Albumin 2.2 G/DL (3.4-5.0) L Globulin 4.4 g/dL Albumin/Globulin Ratio 0.5 (1.0-2.7) L Objective HEAD AND NECK: No JVD.Tracheostomy intact LUNGS: Coarse rhonchi. CARDIOVASCULAR: Regular S1 and S2 with no gallop. Sternotomy is intact Pacemaker in the right subclavian ABDOMEN: Soft.PEG in place EXTREMITIES: 1+ pitting edema Shivam Sharpe MD Nov 22, 2018 16:50
[2018-11-22] MEDS: Micafungin 100 MG in NS 110 ML IVPB SCH (17:21)
[2018-11-22] MEDS: Dyna-Hex 2% Top Sol 2oz TOPIC SCH (19:57)
[2018-11-22 20:00] VITALS: BP 108/50
--- NOTE | 2018-11-22 20:58 | Infectious Diseases Prog Note ---
Assessment/Plan Problems: (1) Fever Assessment & Plan: with mild leukocytosis suspect due to massive recurrent right side pleural effusion with possible pneumonia , S/P repeated thoracentesis with removal of 1.5 liter of fluids , continue vancomycin and aztreonam empirically for 8 days , monitor cultures (2) Thrush, oral Assessment & Plan: continue local nystatin , and iv micafungin to treat him since fluconazole has many interaction with his transplants meds . may need to rule out esophageal sergio since immunocompromised (3) HCV antibody positive Assessment & Plan: no evidence of active infection, with undetectable viral load , suspect due to previous infection , cleared, S/P liver transplant . (4) Foot ulcer Assessment & Plan: in diabetic patient , with MRSA , S/P vancomycin treatment with HD for two weeks , pending vascular eval and possible surgical debridement. bone scan ruled out osteomyelitis of the heel . 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 now improving, pulmonary is following (9) Pleural effusion Assessment & Plan: recurrent on the right, with lung collapse , S/P thoracentesis X2 with removal of 1.5 cc of clear fluids. PREVIOUS culture were negative with negative cytology Subjective Constitutional: Reports: no symptoms HEENT: Reports: no symptoms Respiratory: Reports: no symptoms Breasts: Reports: no symptoms Cardiovascular: Reports: no symptoms Gastrointestinal/Abdominal: Reports: no symptoms Genitourinary: Reports: no symptoms Neurologic: Reports: no symptoms Psychiatric: Reports: no symptoms Skin: Reports: no symptoms Endocrine: Reports: no symptoms Hematologic: Reports: no symptoms Musculoskeletal: Reports: no symptoms Allergies: Coded Allergies: CEPHALEXIN (Unverified Allergy, Unknown, 02/24/14) SULFAMETHOXAZOLE (Unverified Allergy, Unknown, 02/24/14) TRIMETHOPRIM (Unverified Allergy, Unknown, 02/24/14) Subjective he was feeling good , has less facial swelling and tongue swelling , awake and responsive, no fever or chills, no significant secretions , no SOB . has less thrush on his tongue Objective Vital Signs Last 24 Hour Vital Signs Date Time Temp Pulse Resp B/P (MAP) Pulse Ox O2 Delivery O2 Flow Rate FiO2 11/22/18 20:52 69 20 40 11/22/18 19:39 70 19 40 11/22/18 19:38 Mechanical Ventilator 40 11/22/18 19:38 100 Mechanical Ventilator 40 11/22/18 16:48 71 19 40 11/22/18 16:00 97.5 70 22 128/49 (75) 100 11/22/18 16:00 Mechanical Ventilator 11/22/18 16:00 40 11/22/18 16:00 70 11/22/18 14:42 72 24 40 11/22/18 13:13 74 21 40 11/22/18 12:00 40 11/22/18 12:00 97.7 68 18 157/87 (110) 100 11/22/18 12:00 71 11/22/18 12:00 Mechanical Ventilator 11/22/18 11:03 70 22 40 11/22/18 09:10 69 22 40 11/22/18 08:40 74 154/85 11/22/18 08:00 40 11/22/18 08:00 Mechanical Ventilator 11/22/18 08:00 75 11/22/18 08:00 97.7 74 20 154/85 (108) 100 11/22/18 07:20 75 20 40 11/22/18 07:20 Mechanical Ventilator 40 11/22/18 07:20 100 Mechanical Ventilator 40 11/22/18 05:04 75 19 40 11/22/18 04:00 98.2 72 20 120/70 (87) 100 11/22/18 04:00 Mechanical Ventilator 11/22/18 04:00 40 11/22/18 04:00 73 11/22/18 03:12 72 21 40 11/22/18 01:20 75 21 40 11/22/18 00:00 40 11/22/18 00:00 Mechanical Ventilator 11/22/18 00:00 98.2 72 22 123/81 (95) 100 11/22/18 00:00 72 11/21/18 23:23 73 22 40 11/21/18 21:30 69 21 40 Height (Feet): 5 Height (Inches): 5.00 Weight (Pounds): 204 General Appearance: WD/WN, no acute distress HEENT: normocephalic, atraumatic, anicteric, mucous membranes moist, PERRL Respiratory/Chest: chest wall non-tender, lungs clear, normal breath sounds, no respiratory distress, no accessory muscle use Cardiovascular: normal peripheral pulses, normal rate, regular rhythm, no gallop/murmur, no JVD Abdomen: normal bowel sounds, soft, non tender, no organomegaly, non distended , no mass, no scars Genitourinary: normal external genitalia Extremities: no cyanosis, no clubbing Skin: no rash, no lesions, no ulcers 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: 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 manager 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 normal, no motor/sensory deficits, alert, responsive Laboratory Tests Test 11/22/18 04:00 White Blood Count 9.0 K/UL (4.8-10.8) Red Blood Count 4.67 M/UL (4.70-6.10) L Hemoglobin 11.7 G/DL (14.2-18.0) L Hematocrit 38.3 % (42.0-52.0) L Mean Corpuscular Volume 82 FL (80-99) Mean Corpuscular Hemoglobin 25.1 PG (27.0-31.0) L Mean Corpuscular Hemoglobin Concent 30.6 G/DL (32.0-36.0) L Red Cell Distribution Width 17.4 % (11.6-14.8) H Platelet Count 195 K/UL (150-450) Mean Platelet Volume 7.2 FL (6.5-10.1) Neutrophils (%) (Auto) 75.9 % (45.0-75.0) H Lymphocytes (%) (Auto) 17.2 % (20.0-45.0) L Monocytes (%) (Auto) 6.3 % (1.0-10.0) Eosinophils (%) (Auto) 0.1 % (0.0-3.0) Basophils (%) (Auto) 0.6 % (0.0-2.0) Sodium Level 133 MMOL/L (136-145) L Potassium Level 4.3 MMOL/L (3.5-5.1) Chloride Level 95 MMOL/L (98-107) L Carbon Dioxide Level 30 MMOL/L (21-32) Anion Gap 8 mmol/L (5-15) Blood Urea Nitrogen 71 mg/dL (7-18) H Creatinine 8.0 MG/DL (0.55-1.30) H Estimat Glomerular Filtration Rate 6.8 mL/min (>60) Glucose Level 107 MG/DL (74-106) H Uric Acid 4.7 MG/DL (2.6-7.2) Calcium Level 9.2 MG/DL (8.5-10.1) Phosphorus Level 3.5 MG/DL (2.5-4.9) Magnesium Level 2.3 MG/DL (1.8-2.4) Total Bilirubin 0.3 MG/DL (0.2-1.0) Gamma Glutamyl Transpeptidase 16 U/L (5-85) Aspartate Amino Transf (AST/SGOT) 10 U/L (15-37) L Alanine Aminotransferase (ALT/SGPT) 11 U/L (12-78) L Alkaline Phosphatase 77 U/L (46-116) C-Reactive Protein, Quantitative 6.2 mg/dL (0.00-0.90) H Pro-B-Type Natriuretic Peptide > 36600 pg/mL (0-125) H Total Protein 6.6 G/DL (6.4-8.2) Albumin 2.2 G/DL (3.4-5.0) L Globulin 4.4 g/dL Albumin/Globulin Ratio 0.5 (1.0-2.7) L Current Medications Medications (Trade) Dose Ordered Sig/Aleks Route PRN Reason Start Time Stop Time Status Last Admin Dose Admin Acetaminophen (Tylenol) 650 mg Q4H PRN NG Mild Pain/Temp > 100.5 11/12/18 19:00 12/12/18 18:47 Amlodipine Besylate (Norvasc) 2.5 mg DAILY GT 11/22/18 09:00 12/22/18 08:59 11/22/18 08:40 Aspirin (ASA) 81 mg DAILY GT 11/20/18 09:00 12/20/18 08:59 11/22/18 08:40 Atorvastatin Calcium (Lipitor) 10 mg BEDTIME NG 11/12/18 21:00 12/02/18 20:59 11/21/18 21:32 Aztreonam 0.5 gm/ Dextrose 55 ml @ 110 mls/hr Q12H IVPB 11/20/18 21:00 11/27/18 20:59 11/22/18 09:23 Chlorhexidine Gluconate (Glo-Hex 2%) 1 applic DAILY@1999 TOPIC 11/11/18 20:00 12/08/18 19:59 11/22/18 19:57 Collagenase (Santyl) 1 applic DAILY@2099 TOPIC 11/14/18 21:00 12/14/18 20:59 11/21/18 21:34 Dextrose (Dextrose 50%) 25 ml Q30M PRN IV Hypoglycemia 11/11/18 14:45 11/30/18 22:44 Dextrose (Dextrose 50%) 50 ml Q30M PRN IV Hypoglycemia 11/11/18 14:45 11/30/18 22:44 Docusate Sodium (Colace) 100 mg EVERY 8 HOURS GT 11/20/18 14:00 12/20/18 13:59 11/22/18 14:27 Hydralazine HCl (Apresoline) 10 mg Q6H PRN IV For High Blood Pressure 11/11/18 14:39 12/11/18 14:38 Insulin Aspart (NovoLOG) EVERY 6 HOURS SUBQ 11/12/18 12:00 12/01/18 06:29 11/22/18 18:27 Lansoprazole (Prevacid) 30 mg BID GT 11/20/18 09:00 12/20/18 08:59 11/22/18 17:21 Lorazepam (Ativan) 1 mg EVERY 6 HOURS PRN GT For Anxiety 11/20/18 22:00 11/27/18 21:59 Micafungin Sodium 100 mg/Sodium Chloride 110 ml @ 110 mls/hr Q24H IVPB 11/13/18 18:00 11/24/18 17:59 11/22/18 17:21 Morphine Sulfate (Morphine Sulfate) 0.5 mg Q4H PRN IVP severe pain(7-10) 11/16/18 21:45 11/23/18 21:37 11/22/18 19:57 Nicotine (Nicoderm) 1 patch Q24H TDERMAL 11/11/18 22:15 12/01/18 22:14 11/21/18 21:33 Olanzapine (ZyPREXA) 2.5 mg BEDTIME NG 11/13/18 21:00 12/13/18 20:59 11/21/18 21:32 Olanzapine (ZyPREXA) 2.5 mg Q6H PRN ORAL agitation 11/15/18 23:00 12/15/18 22:59 Polyethylene Glycol (Miralax) 17 gm DAILYPRN PRN NG Constipation 11/12/18 19:00 12/11/18 15:29 11/13/18 05:30 Sevelamer Carbonate (Renvela) 800 mg Q8HR GT 11/20/18 14:00 12/20/18 13:59 11/22/18 14:26 Tacrolimus (Prograf) 2 mg MoWeFr@0000,1200 ORAL 11/13/18 00:00 12/02/18 00:00 11/20/18 12:05 Tacrolimus (Prograf) 2 mg SuTuThSa@0900,2100 ORAL 11/17/18 21:00 12/17/18 20:59 11/22/18 08:40 Vancomycin HCl (Vanco rx to dose) 1 ea DAILY PRN MISC Per rx protocol 11/14/18 14:45 12/14/18 14:44 Francois Landis M.D. Nov 22, 2018 20:58
[2018-11-22] MEDS: OLANZapine 2.5mg tab NG SCH (22:01)
[2018-11-23] VITALS: BP 148/75
[2018-11-23] MEDS: Morphine Sulfate 2mg/ml Inj(IV/IM USE ONLY) IVP PRN ×3 (00:16→11:03)
[2018-11-23] MEDS: NovoLOG Insulin Flexpen SUBQ SCH ×5 (00:19→23:20)
[2018-11-23 04:00] VITALS: BP 145/70
[2018-11-23] MEDS: Renvela 800mg Pkt GT SCH ×3 (06:39→22:07)
[2018-11-23] MEDS: Docusate 100mg/10ml Liq GT SCH ×3 (06:39→22:07)
[2018-11-23 08:00] VITALS: BP 121/43
[2018-11-23] MEDS: Aztreonam Inj 0.5 GM in D5W 55 ML IVPB SCH (08:54)
[2018-11-23] MEDS: Aspirin Baby 81mg GT SCH (08:54)
--- NOTE | 2018-11-23 09:42 | General Progress Note ---
Assessment/Plan Problem List: (1) Transplant ICD Codes: Z94.9 - Transplanted organ and tissue status, unspecified SNOMED: 207924561 (2) HTN (hypertension) ICD Codes: I10 - Essential (primary) hypertension SNOMED: 64972738 (3) Pacemaker ICD Codes: Z95.0 - Presence of cardiac pacemaker SNOMED: 854821822 (4) CHF (congestive heart failure) ICD Codes: I50.9 - Heart failure, unspecified SNOMED: 37947730 (5) DM (diabetes mellitus) ICD Codes: E11.9 - Type 2 diabetes mellitus without complications SNOMED: 26978660 (6) Foot ulcer ICD Codes: L97.509 - Non-pressure chronic ulcer of other part of unspecified foot with unspecified severity SNOMED: 27662509 Qualifiers: Qualified Codes: L97.511 - Non-pressure chronic ulcer of other part of right foot limited to breakdown of skin (7) ESRD (end stage renal disease) on dialysis ICD Codes: N18.6 - End stage renal disease; Z99.2 - Dependence on renal dialysis SNOMED: 253413963 Assessment/Plan GTF HD per nephro fu labs supportive care Subjective ROS Limited/Unobtainable: No Allergies: Coded Allergies: CEPHALEXIN (Unverified Allergy, Unknown, 02/24/14) SULFAMETHOXAZOLE (Unverified Allergy, Unknown, 02/24/14) TRIMETHOPRIM (Unverified Allergy, Unknown, 02/24/14) Subjective he pulled his NGT again Objective Last 24 Hour Vital Signs Date Time Temp Pulse Resp B/P (MAP) Pulse Ox O2 Delivery O2 Flow Rate FiO2 11/23/18 08:56 71 121/43 11/23/18 07:29 100 Mechanical Ventilator 40 11/23/18 07:29 Mechanical Ventilator 40 11/23/18 07:25 67 23 40 11/23/18 05:23 80 26 40 11/23/18 04:43 97.5 11/23/18 04:00 97.5 70 26 145/70 (95) 100 11/23/18 04:00 40 11/23/18 04:00 71 11/23/18 04:00 Mechanical Ventilator 11/23/18 03:30 64 30 40 11/23/18 01:26 65 33 40 11/23/18 00:20 65 21 40 11/23/18 00:00 69 11/23/18 00:00 40 11/23/18 00:00 Mechanical Ventilator 11/23/18 00:00 97.5 69 27 148/75 (99) 100 11/22/18 22:30 70 21 40 11/22/18 20:52 69 20 40 11/22/18 20:00 Mechanical Ventilator 11/22/18 20:00 40 11/22/18 20:00 69 11/22/18 20:00 97.9 66 18 108/50 (69) 100 11/22/18 19:39 70 19 40 11/22/18 19:38 Mechanical Ventilator 40 11/22/18 19:38 100 Mechanical Ventilator 40 11/22/18 16:48 71 19 40 11/22/18 16:00 97.5 70 22 128/49 (75) 100 11/22/18 16:00 Mechanical Ventilator 11/22/18 16:00 40 11/22/18 16:00 70 11/22/18 14:42 72 24 40 11/22/18 13:13 74 21 40 11/22/18 12:00 40 11/22/18 12:00 97.7 68 18 157/87 (110) 100 11/22/18 12:00 71 11/22/18 12:00 Mechanical Ventilator 11/22/18 11:03 70 22 40 Intake and Output 11/22/18 11/23/18 19:00 07:00 Intake Total 855 ml 680 ml Balance 855 ml 680 ml Free Water 150 ml 140 ml IV Total 165 ml Tube Feeding 540 ml 540 ml Height (Feet): 5 Height (Inches): 5.00 Weight (Pounds): 202 General Appearance: no apparent distress EENT: normal ENT inspection Neck: supple Cardiovascular: regular rhythm Respiratory/Chest: decreased breath sounds Abdomen: normal bowel sounds, non tender, soft Extremities: non-tender Jorge Escalera MD Nov 23, 2018 09:42
--- NOTE | 2018-11-23 10:03 | Pulmonology Progress Note ---
Assessment/Plan Assessment/Plan 1. Resp failure, hypercapneic 2. End-stage renal disease, on dialysis, status post multiple upper extremity vascular procedures. 3. Coronary artery bypass surgery. 4. Diabetes. 5. Dysphonia, tongue swelling; s/p trach PLAN: resume weaning trials tongue not swollen tolerates feeds disc w RN Ready for LTAC Subjective ROS Limited/Unobtainable: Yes Allergies: Coded Allergies: CEPHALEXIN (Unverified Allergy, Unknown, 02/24/14) SULFAMETHOXAZOLE (Unverified Allergy, Unknown, 02/24/14) TRIMETHOPRIM (Unverified Allergy, Unknown, 02/24/14) Objective Last 24 Hour Vital Signs Date Time Temp Pulse Resp B/P (MAP) Pulse Ox O2 Delivery O2 Flow Rate FiO2 11/23/18 08:56 71 121/43 11/23/18 07:29 100 Mechanical Ventilator 40 11/23/18 07:29 Mechanical Ventilator 40 11/23/18 07:25 67 23 40 11/23/18 05:23 80 26 40 11/23/18 04:43 97.5 11/23/18 04:00 97.5 70 26 145/70 (95) 100 11/23/18 04:00 40 11/23/18 04:00 71 11/23/18 04:00 Mechanical Ventilator 11/23/18 03:30 64 30 40 11/23/18 01:26 65 33 40 11/23/18 00:20 65 21 40 11/23/18 00:00 69 11/23/18 00:00 40 11/23/18 00:00 Mechanical Ventilator 11/23/18 00:00 97.5 69 27 148/75 (99) 100 11/22/18 22:30 70 21 40 11/22/18 20:52 69 20 40 11/22/18 20:00 Mechanical Ventilator 11/22/18 20:00 40 11/22/18 20:00 69 11/22/18 20:00 97.9 66 18 108/50 (69) 100 11/22/18 19:39 70 19 40 11/22/18 19:38 Mechanical Ventilator 40 11/22/18 19:38 100 Mechanical Ventilator 40 11/22/18 16:48 71 19 40 11/22/18 16:00 97.5 70 22 128/49 (75) 100 4/7/19 16:00 Mechanical Ventilator 11/22/18 16:00 40 11/22/18 16:00 70 11/22/18 14:42 72 24 40 11/22/18 13:13 74 21 40 11/22/18 12:00 40 11/22/18 12:00 97.7 68 18 157/87 (110) 100 11/22/18 12:00 71 11/22/18 12:00 Mechanical Ventilator 11/22/18 11:03 70 22 40 Intake and Output 11/22/18 11/23/18 19:00 07:00 Intake Total 855 ml 680 ml Balance 855 ml 680 ml Free Water 150 ml 140 ml IV Total 165 ml Tube Feeding 540 ml 540 ml Objective trach on vent General Appearance: no acute distress HEENT: atraumatic Respiratory/Chest: lungs clear Cardiovascular: normal rate Current Medications Medications (Trade) Dose Ordered Sig/Aleks Route PRN Reason Start Time Stop Time Status Last Admin Dose Admin Acetaminophen (Tylenol) 650 mg Q4H PRN NG Mild Pain/Temp > 100.5 11/12/18 19:00 12/12/18 18:47 Amlodipine Besylate (Norvasc) 2.5 mg DAILY GT 11/22/18 09:00 12/22/18 08:59 11/22/18 08:40 Aspirin (ASA) 81 mg DAILY GT 11/20/18 09:00 12/20/18 08:59 11/23/18 08:54 Atorvastatin Calcium (Lipitor) 10 mg BEDTIME NG 11/12/18 21:00 12/02/18 20:59 11/22/18 22:01 Aztreonam 0.5 gm/ Dextrose 55 ml @ 110 mls/hr Q12H IVPB 11/20/18 21:00 11/27/18 20:59 11/23/18 08:54 Bisacodyl (Dulcolax) 10 mg ONCE RECTAL 11/23/18 09:45 11/23/18 11:00 Chlorhexidine Gluconate (Glo-Hex 2%) 1 applic DAILY@1999 TOPIC 11/11/18 20:00 12/08/18 19:59 11/22/18 19:57 Collagenase (Santyl) 1 applic DAILY@2099 TOPIC 11/14/18 21:00 12/14/18 20:59 11/22/18 22:44 Dextrose (Dextrose 50%) 25 ml Q30M PRN IV Hypoglycemia 11/11/18 14:45 11/30/18 22:44 Dextrose (Dextrose 50%) 50 ml Q30M PRN IV Hypoglycemia 11/11/18 14:45 11/30/18 22:44 Docusate Sodium (Colace) 100 mg EVERY 8 HOURS GT 11/20/18 14:00 12/20/18 13:59 11/23/18 06:39 Hydralazine HCl (Apresoline) 10 mg Q6H PRN IV For High Blood Pressure 11/11/18 14:39 12/11/18 14:38 Insulin Aspart (NovoLOG) EVERY 6 HOURS SUBQ 11/12/18 12:00 12/01/18 06:29 11/23/18 06:39 Lactulose (Cephulac) 20 gm THREE TIMES A DAY ORAL 11/23/18 13:00 12/23/18 12:59 Lansoprazole (Prevacid) 30 mg BID GT 11/20/18 09:00 12/20/18 08:59 11/23/18 08:54 Lorazepam (Ativan) 1 mg EVERY 6 HOURS PRN GT For Anxiety 11/20/18 22:00 11/27/18 21:59 Micafungin Sodium 100 mg/Sodium Chloride 110 ml @ 110 mls/hr Q24H IVPB 11/13/18 18:00 11/27/18 17:59 11/22/18 17:21 Morphine Sulfate (Morphine Sulfate) 0.5 mg Q4H PRN IVP severe pain(7-10) 11/16/18 21:45 11/23/18 21:37 11/23/18 04:13 Nicotine (Nicoderm) 1 patch Q24H TDERMAL 11/11/18 22:15 12/01/18 22:14 11/22/18 22:02 Olanzapine (ZyPREXA) 2.5 mg BEDTIME NG 11/13/18 21:00 12/13/18 20:59 11/22/18 22:01 Olanzapine (ZyPREXA) 2.5 mg Q6H PRN ORAL agitation 11/15/18 23:00 12/15/18 22:59 Polyethylene Glycol (Miralax) 17 gm BEDTIME ORAL 11/23/18 21:00 12/23/18 20:59 Polyethylene Glycol (Miralax) 17 gm DAILYPRN PRN NG Constipation 11/12/18 19:00 12/11/18 15:29 11/13/18 05:30 Sevelamer Carbonate (Renvela) 800 mg Q8HR GT 11/20/18 14:00 12/20/18 13:59 11/23/18 06:39 Tacrolimus (Prograf) 2 mg MoWeFr@0000,1200 ORAL 11/13/18 00:00 12/02/18 00:00 11/23/18 00:15 Tacrolimus (Prograf) 2 mg SuTuThSa@0900,2100 ORAL 11/17/18 21:00 12/17/18 20:59 11/22/18 22:04 Vancomycin HCl (Vanco rx to dose) 1 ea DAILY PRN MISC Per rx protocol 11/14/18 14:45 12/14/18 14:44 Saroj Mendoza MD Nov 23, 2018 10:03
--- NOTE | 2018-11-23 11:35 | Nephrology Progress Note ---
Assessment/Plan Problem List: (1) ESRD (end stage renal disease) on dialysis (2) Foot ulcer (3) CHF (congestive heart failure) (4) Pacemaker (5) Acute respiratory failure Assessment: with Co2 retention Assessment ESRD with high K and SOB on admit Foot ulcer, likely infected High Troponin likely NSTMI Pacer , Pleural effusion s/p CABGS s/p Liver transplant Plan Now has tracheostomy and PEG Adjust BP meds HD next 11/23- Antibiotics by ID start tube feeding / hasPEG per cardio and ID Podiatry and Vascular surgical fu ? DC planning? Subjective ROS Limited/Unobtainable: No Objective Objective Last 24 Hour Vital Signs Date Time Temp Pulse Resp B/P (MAP) Pulse Ox O2 Delivery O2 Flow Rate FiO2 11/23/18 11:11 77 21 40 11/23/18 09:15 70 22 40 11/23/18 08:56 71 121/43 11/23/18 08:00 98.1 71 22 121/43 (69) 100 11/23/18 08:00 71 11/23/18 08:00 40 11/23/18 08:00 Mechanical Ventilator 11/23/18 07:29 100 Mechanical Ventilator 40 11/23/18 07:29 Mechanical Ventilator 40 11/23/18 07:25 67 23 40 11/23/18 05:23 80 26 40 11/23/18 04:43 97.5 11/23/18 04:00 97.5 70 26 145/70 (95) 100 11/23/18 04:00 40 11/23/18 04:00 71 11/23/18 04:00 Mechanical Ventilator 11/23/18 03:30 64 30 40 11/23/18 01:26 65 33 40 11/23/18 00:20 65 21 40 11/23/18 00:00 69 11/23/18 00:00 40 11/23/18 00:00 Mechanical Ventilator 11/23/18 00:00 97.5 69 27 148/75 (99) 100 11/22/18 22:30 70 21 40 11/22/18 20:52 69 20 40 11/22/18 20:00 Mechanical Ventilator 11/22/18 20:00 40 11/22/18 20:00 69 11/22/18 20:00 97.9 66 18 108/50 (69) 100 11/22/18 19:39 70 19 40 11/22/18 19:38 Mechanical Ventilator 40 11/22/18 19:38 100 Mechanical Ventilator 40 11/22/18 16:48 71 19 40 11/22/18 16:00 97.5 70 22 128/49 (75) 100 11/22/18 16:00 Mechanical Ventilator 11/22/18 16:00 40 11/22/18 16:00 70 11/22/18 14:42 72 24 40 11/22/18 13:13 74 21 40 11/22/18 12:00 40 11/22/18 12:00 97.7 68 18 157/87 (110) 100 11/22/18 12:00 71 11/22/18 12:00 Mechanical Ventilator Intake and Output 11/22/18 11/23/18 19:00 07:00 Intake Total 855 ml 680 ml Balance 855 ml 680 ml Free Water 150 ml 140 ml IV Total 165 ml Tube Feeding 540 ml 540 ml Height (Feet): 5 Height (Inches): 5.00 Weight (Pounds): 202 General Appearance: no apparent distress EENT: other - trach Cardiovascular: normal rate Respiratory/Chest: decreased breath sounds Abdomen: soft, other - PEG Objective no other change Nakul Stevens MD Nov 23, 2018 11:35
[2018-11-23 12:00] VITALS: BP 114/83
[2018-11-23] MEDS ORDERED: Haloperidol 5mg/ml Inj IM PRN ×2 (12:00)
--- NOTE | 2018-11-23 12:01 | General Progress Note ---
Assessment/Plan Problem List: (1) Encephalopathy acute ICD Codes: G93.40 - Encephalopathy, unspecified SNOMED: 23472620, 915484094 Assessment/Plan Zyprexa 2.5mg po qhs haldol IM prn the pt lacks capacity ativan 1mg gt prior to weaning off from vent Subjective 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: Reports: anxiety, depressed, emotional problems Allergies: Coded Allergies: CEPHALEXIN (Unverified Allergy, Unknown, 02/24/14) SULFAMETHOXAZOLE (Unverified Allergy, Unknown, 02/24/14) TRIMETHOPRIM (Unverified Allergy, Unknown, 02/24/14) Subjective the pt was disoriented non verbal the pt is agitated and refusing all care today the pt c/o pain in neck area but is not allowing the nurse to check that Objective Last 24 Hour Vital Signs Date Time Temp Pulse Resp B/P (MAP) Pulse Ox O2 Delivery O2 Flow Rate FiO2 11/23/18 11:11 77 21 40 11/23/18 09:15 70 22 40 11/23/18 08:56 71 121/43 11/23/18 08:00 98.1 71 22 121/43 (69) 100 11/23/18 08:00 71 11/23/18 08:00 40 11/23/18 08:00 Mechanical Ventilator 11/23/18 07:29 100 Mechanical Ventilator 40 11/23/18 07:29 Mechanical Ventilator 40 11/23/18 07:25 67 23 40 11/23/18 05:23 80 26 40 11/23/18 04:43 97.5 11/23/18 04:00 97.5 70 26 145/70 (95) 100 11/23/18 04:00 40 11/23/18 04:00 71 11/23/18 04:00 Mechanical Ventilator 11/23/18 03:30 64 30 40 11/23/18 01:26 65 33 40 11/23/18 00:20 65 21 40 11/23/18 00:00 69 11/23/18 00:00 40 11/23/18 00:00 Mechanical Ventilator 11/23/18 00:00 97.5 69 27 148/75 (99) 100 11/22/18 22:30 70 21 40 11/22/18 20:52 69 20 40 11/22/18 20:00 Mechanical Ventilator 11/22/18 20:00 40 11/22/18 20:00 69 11/22/18 20:00 97.9 66 18 108/50 (69) 100 11/22/18 19:39 70 19 40 11/22/18 19:38 Mechanical Ventilator 40 11/22/18 19:38 100 Mechanical Ventilator 40 11/22/18 16:48 71 19 40 11/22/18 16:00 97.5 70 22 128/49 (75) 100 11/22/18 16:00 Mechanical Ventilator 11/22/18 16:00 40 11/22/18 16:00 70 11/22/18 14:42 72 24 40 11/22/18 13:13 74 21 40 11/22/18 12:00 40 11/22/18 12:00 97.7 68 18 157/87 (110) 100 11/22/18 12:00 71 11/22/18 12:00 Mechanical Ventilator Intake and Output 11/22/18 11/23/18 19:00 07:00 Intake Total 855 ml 680 ml Balance 855 ml 680 ml Free Water 150 ml 140 ml IV Total 165 ml Tube Feeding 540 ml 540 ml Height (Feet): 5 Height (Inches): 5.00 Weight (Pounds): 202 General Appearance: alert, confused, agitated Jeffrey Lala MD Nov 23, 2018 12:01
[2018-11-23] MEDS ORDERED: Lactulose 20gm/30ml UDC ORAL SCH (13:00)
[2018-11-23 16:00] VITALS: BP 103/62
--- NOTE | 2018-11-23 16:43 | Infectious Diseases Prog Note ---
Assessment/Plan Problems: (1) Fever Assessment & Plan: with mild leukocytosis, resolved , suspect due to massive recurrent right side pleural effusion with possible pneumonia , S/P repeated thoracentesis with removal of 1.5 liter of fluids , continue vancomycin and aztreonam empirically for 8 days , monitor cultures (2) Thrush, oral Assessment & Plan: continue local nystatin , and iv micafungin to treat him since fluconazole has many interaction with his transplants meds . may need to rule out esophageal sergio since immunocompromised (3) HCV antibody positive Assessment & Plan: no evidence of active infection, with undetectable viral load , suspect due to previous infection , cleared, S/P liver transplant . (4) Foot ulcer Assessment & Plan: in diabetic patient , with MRSA , S/P vancomycin treatment with HD for two weeks , pending vascular eval and possible surgical debridement. bone scan ruled out osteomyelitis of the heel . 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 now improving, pulmonary is following (9) Pleural effusion Assessment & Plan: recurrent on the right, with lung collapse , S/P thoracentesis X2 with removal of 1.5 cc of clear fluids. PREVIOUS culture were negative with negative cytology Subjective Constitutional: Reports: no symptoms HEENT: Reports: no symptoms Respiratory: Reports: no symptoms Breasts: Reports: no symptoms Cardiovascular: Reports: no symptoms Gastrointestinal/Abdominal: Reports: no symptoms Genitourinary: Reports: no symptoms Neurologic: Reports: no symptoms Psychiatric: Reports: no symptoms Skin: Reports: no symptoms Endocrine: Reports: no symptoms Hematologic: Reports: no symptoms Musculoskeletal: Reports: no symptoms Allergies: Coded Allergies: CEPHALEXIN (Unverified Allergy, Unknown, 02/24/14) SULFAMETHOXAZOLE (Unverified Allergy, Unknown, 02/24/14) TRIMETHOPRIM (Unverified Allergy, Unknown, 02/24/14) Subjective he was feeling good , has less facial swelling and tongue swelling , awake and responsive, no fever or chills, no significant secretions , no SOB . has less thrush on his tongue Objective Vital Signs Last 24 Hour Vital Signs Date Time Temp Pulse Resp B/P (MAP) Pulse Ox O2 Delivery O2 Flow Rate FiO2 11/23/18 16:00 40 11/23/18 16:00 Mechanical Ventilator 11/23/18 15:15 75 21 40 11/23/18 14:04 78 24 40 11/23/18 12:00 79 11/23/18 12:00 40 11/23/18 12:00 97.7 77 26 114/83 (93) 100 11/23/18 12:00 Mechanical Ventilator 11/23/18 11:11 77 21 40 11/23/18 09:15 70 22 40 11/23/18 08:56 71 121/43 11/23/18 08:00 98.1 71 22 121/43 (69) 100 11/23/18 08:00 71 11/23/18 08:00 40 11/23/18 08:00 Mechanical Ventilator 11/23/18 07:29 100 Mechanical Ventilator 40 11/23/18 07:29 Mechanical Ventilator 40 11/23/18 07:25 67 23 40 11/23/18 05:23 80 26 40 11/23/18 04:43 97.5 11/23/18 04:00 97.5 70 26 145/70 (95) 100 11/23/18 04:00 40 11/23/18 04:00 71 11/23/18 04:00 Mechanical Ventilator 11/23/18 03:30 64 30 40 11/23/18 01:26 65 33 40 11/23/18 00:20 65 21 40 11/23/18 00:00 69 11/23/18 00:00 40 11/23/18 00:00 Mechanical Ventilator 11/23/18 00:00 97.5 69 27 148/75 (99) 100 11/22/18 22:30 70 21 40 11/22/18 20:52 69 20 40 11/22/18 20:00 Mechanical Ventilator 11/22/18 20:00 40 11/22/18 20:00 69 11/22/18 20:00 97.9 66 18 108/50 (69) 100 11/22/18 19:39 70 19 40 11/22/18 19:38 Mechanical Ventilator 40 11/22/18 19:38 100 Mechanical Ventilator 40 11/22/18 16:48 71 19 40 Height (Feet): 5 Height (Inches): 5.00 Weight (Pounds): 202 General Appearance: WD/WN, no acute distress HEENT: normocephalic, atraumatic, anicteric, mucous membranes moist, PERRL, EOMI, pharynx normal, supple, no JVD, status post trach Respiratory/Chest: chest wall non-tender, lungs clear, normal breath sounds, no respiratory distress, no accessory muscle use, decreased breath sounds Cardiovascular: normal peripheral pulses, normal rate, regular rhythm, no gallop/murmur, no JVD Abdomen: normal bowel sounds, soft, non tender, no organomegaly, non distended , no mass, no scars Genitourinary: normal external genitalia Extremities: no cyanosis, no clubbing Skin: no rash, no lesions, ulcers 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: primary care provider 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 normal, no motor/sensory deficits, alert, responsive Lymphatic: no neck adenopathy, no groin adenopathy Musculoskeletal: normal muscle bulk, no effusion Laboratory Tests Test 11/23/18 11:56 Random Vancomycin Level 15.2 ug/mL Current Medications Medications (Trade) Dose Ordered Sig/Aleks Route PRN Reason Start Time Stop Time Status Last Admin Dose Admin Acetaminophen (Tylenol) 650 mg Q4H PRN NG Mild Pain/Temp > 100.5 11/12/18 19:00 12/12/18 18:47 Amlodipine Besylate (Norvasc) 2.5 mg DAILY GT 11/22/18 09:00 12/22/18 08:59 11/22/18 08:40 Aspirin (ASA) 81 mg DAILY GT 11/20/18 09:00 12/20/18 08:59 11/23/18 08:54 Atorvastatin Calcium (Lipitor) 10 mg BEDTIME NG 11/12/18 21:00 12/02/18 20:59 11/22/18 22:01 Aztreonam 0.5 gm/ Dextrose 55 ml @ 110 mls/hr Q12H IVPB 11/20/18 21:00 11/27/18 20:59 11/23/18 08:54 Chlorhexidine Gluconate (Glo-Hex 2%) 1 applic DAILY@2000 TOPIC 11/11/18 20:00 12/08/18 19:59 11/22/18 19:57 Collagenase (Santyl) 1 applic DAILY@2099 TOPIC 11/14/18 21:00 12/14/18 20:59 11/22/18 22:44 Dextrose (Dextrose 50%) 25 ml Q30M PRN IV Hypoglycemia 11/11/18 14:45 11/30/18 22:44 Dextrose (Dextrose 50%) 50 ml Q30M PRN IV Hypoglycemia 11/11/18 14:45 11/30/18 22:44 Docusate Sodium (Colace) 100 mg EVERY 8 HOURS GT 11/20/18 14:00 12/20/18 13:59 11/23/18 13:27 Haloperidol Lactate (Haldol) 5 mg Q6H PRN IM Agitation 11/23/18 12:00 12/23/18 11:59 Hydralazine HCl (Apresoline) 10 mg Q6H PRN IV For High Blood Pressure 11/11/18 14:39 12/11/18 14:38 Insulin Aspart (NovoLOG) EVERY 6 HOURS SUBQ 11/12/18 12:00 12/01/18 06:29 11/23/18 12:07 Lactulose (Cephulac) 20 gm THREE TIMES A DAY GT 11/23/18 18:00 12/23/18 17:59 Lansoprazole (Prevacid) 30 mg BID GT 11/20/18 09:00 12/20/18 08:59 11/23/18 08:54 Lorazepam (Ativan) 1 mg EVERY 6 HOURS PRN GT For Anxiety 11/20/18 22:00 11/27/18 21:59 Micafungin Sodium 100 mg/Sodium Chloride 110 ml @ 110 mls/hr Q24H IVPB 11/13/18 18:00 11/27/18 17:59 11/22/18 17:21 Morphine Sulfate (Morphine Sulfate) 0.5 mg Q4H PRN IVP severe pain(7-10) 11/16/18 21:45 11/23/18 21:37 11/23/18 11:03 Nicotine (Nicoderm) 1 patch Q24H TDERMAL 11/11/18 22:15 12/01/18 22:14 11/22/18 22:02 Olanzapine (ZyPREXA) 2.5 mg BEDTIME NG 11/13/18 21:00 12/13/18 20:59 11/22/18 22:01 Olanzapine (ZyPREXA) 2.5 mg Q6H PRN ORAL agitation 11/15/18 23:00 12/15/18 22:59 Polyethylene Glycol (Miralax) 17 gm BEDTIME ORAL 11/23/18 21:00 12/23/18 20:59 Polyethylene Glycol (Miralax) 17 gm DAILYPRN PRN NG Constipation 11/12/18 19:00 12/11/18 15:29 11/13/18 05:30 Sevelamer Carbonate (Renvela) 800 mg Q8HR GT 11/20/18 14:00 12/20/18 13:59 11/23/18 13:28 Tacrolimus (Prograf) 2 mg MoWeFr@0000,1200 ORAL 11/13/18 00:00 12/02/18 00:00 11/23/18 12:29 Tacrolimus (Prograf) 2 mg SuTuThSa@0900,2100 ORAL 11/17/18 21:00 12/17/18 20:59 11/22/18 22:04 Vancomycin HCl (Vanco rx to dose) 1 ea DAILY PRN MISC Per rx protocol 11/14/18 14:45 12/14/18 14:44 Vancomycin HCl 500 mg/Dextrose 110 ml @ 110 mls/hr ONCE ONCE IVPB 11/23/18 18:00 11/23/18 18:59 Francois Landis M.D. Nov 23, 2018 16:43
[2018-11-23] MEDS ORDERED: Vancomycin 500mg/D5W 110ml IVPB ONE ×2 (18:00)
[2018-11-23] MEDS: Lactulose 20gm/30ml UDC GT SCH (18:37)
[2018-11-23] MEDS: Micafungin 100 MG in NS 110 ML IVPB SCH (18:37)
[2018-11-23 20:00] VITALS: BP 125/98
[2018-11-23] MEDS: Miralax 17gm pkt ORAL SCH (20:14)
[2018-11-23] MEDS: OLANZapine 2.5mg tab NG SCH (20:15)
[2018-11-23] MEDS: Dyna-Hex 2% Top Sol 2oz TOPIC SCH (20:15)
--- NOTE | 2018-11-23 22:44 | Cardiology Progress Note ---
Assessment/Plan Status: stable Assessment/Plan Assessment/Plan Assessment/Plan 1. Troponin leak with no chest pain. Hx of CABG. Due to renal failure. On Coreg 6.25 mg bid, aspirin and Lipitor 2. S/P CABG - outpatient stress test 3. Nonsustained ventricular tachycardia. Hx of old AR and CABG. EF 55%. No Syncope, monitor electrolytes 4. Congestive heart failure. On hemodialysis 5. End-stage renal disease, on hemodialysis per Dr. Stevens 6. Status post right sided [employer] dual chamber pacemaker with Nl Fx. 7. Right foot ulcer. Antibiotic per Dr. Landis. FU by Dr. Huizar 8. History of liver transplant on Prograf 9. Respiratory failure, ? etiology anaphylaxis. S/P Emergency tracheostomy. Weaned off the vent on T Piece 10. Pleural effusion. FU Dr. Mendoza 11. Dysphagia, S/P PEG Subjective Cardiovascular: Reports: no symptoms Respiratory: Reports: no symptoms Gastrointestinal/Abdominal: Reports: no symptoms Genitourinary: Reports: no symptoms Subjective [employer] Objective Last 24 Hour Vital Signs Date Time Temp Pulse Resp B/P (MAP) Pulse Ox O2 Delivery O2 Flow Rate FiO2 11/23/18 21:00 78 21 40 11/23/18 20:00 40 11/23/18 20:00 Mechanical Ventilator 11/23/18 20:00 97.7 80 23 125/98 (107) 100 11/23/18 19:26 80 11/23/18 18:59 82 21 40 11/23/18 18:58 99 Mechanical Ventilator 40 11/23/18 18:58 Mechanical Ventilator 40 11/23/18 17:00 73 20 40 11/23/18 16:00 75 11/23/18 16:00 40 11/23/18 16:00 97.9 72 20 103/62 (76) 100 11/23/18 16:00 Mechanical Ventilator 11/23/18 15:15 75 21 40 11/23/18 14:04 78 24 40 11/23/18 12:00 79 11/23/18 12:00 40 11/23/18 12:00 97.7 77 26 114/83 (93) 100 11/23/18 12:00 Mechanical Ventilator 11/23/18 11:11 77 21 40 11/23/18 09:15 70 22 40 4/8/19 08:56 71 121/43 11/23/18 08:00 98.1 71 22 121/43 (69) 100 11/23/18 08:00 71 11/23/18 08:00 40 11/23/18 08:00 Mechanical Ventilator 11/23/18 07:29 100 Mechanical Ventilator 40 11/23/18 07:29 Mechanical Ventilator 40 11/23/18 07:25 67 23 40 11/23/18 05:23 80 26 40 11/23/18 04:43 97.5 11/23/18 04:00 97.5 70 26 145/70 (95) 100 11/23/18 04:00 40 11/23/18 04:00 71 11/23/18 04:00 Mechanical Ventilator 11/23/18 03:30 64 30 40 11/23/18 01:26 65 33 40 11/23/18 00:20 65 21 40 11/23/18 00:00 69 11/23/18 00:00 40 11/23/18 00:00 Mechanical Ventilator 11/23/18 00:00 97.5 69 27 148/75 (99) 100 General Appearance: no apparent distress EENT: PERRL/EOMI, normal ENT inspection, TMs normal Neck: non-tender, normal alignment, supple, normal inspection, no JVD Rhythm: NSR Cardiovascular: normal peripheral pulses, regular rhythm Respiratory/Chest: lungs clear, normal breath sounds Abdomen: normal bowel sounds, soft Extremities: non-tender, normal inspection 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
[2018-11-23] MEDS: LORazepam 1mg tab GT PRN (23:59)
[2018-11-24] VITALS: BP 115/65
[2018-11-24 04:00] VITALS: BP 101/60
[2018-11-24] MEDS: Docusate 100mg/10ml Liq GT SCH ×2 (05:13→13:34)
[2018-11-24] MEDS: Renvela 800mg Pkt GT SCH ×3 (05:13→21:29)
[2018-11-24] MEDS: NovoLOG Insulin Flexpen SUBQ SCH ×4 (05:18→23:10)
[2018-11-24 08:00] VITALS: BP 101/54
[2018-11-24] MEDS: Lactulose 20gm/30ml UDC GT SCH ×3 (09:10→17:16)
[2018-11-24] MEDS: Aspirin Baby 81mg GT SCH (09:10)
--- NOTE | 2018-11-24 10:26 | GI Progress Note ---
Assessment/Plan Problems: (1) Foot ulcer ICD Codes: L97.509 - Non-pressure chronic ulcer of other part of unspecified foot with unspecified severity SNOMED: 97405075 Qualifiers: Qualified Codes: L97.511 - Non-pressure chronic ulcer of other part of right foot limited to breakdown of skin (2) DM (diabetes mellitus) ICD Codes: E11.9 - Type 2 diabetes mellitus without complications SNOMED: 07551311 (3) Transplant ICD Codes: Z94.9 - Transplanted organ and tissue status, unspecified SNOMED: 761047880 Status: unchanged Status Narrative Discussed with Dr. Escalera Assessment/Plan History of liver transplant, currently on Prograf constipation status post emergency tracheostomy ST evaluation unable to be performed, patient noncompliant NGT removed by patient. GTF HD per nephro supportive care cont tacrolimus prn transfusions ppi zofran prn Bowel regimen follow labs The patient was seen and examined at bedside and all new and available data was reviewed in the patients chart. I agree with the above findings, impression and plan. (Patient seen earlier today. Signature stamp does not reflect patient encounter time.). - Jorge Escalera MD Subjective Subjective Limited Objective Last 24 Hour Vital Signs Date Time Temp Pulse Resp B/P (MAP) Pulse Ox O2 Delivery O2 Flow Rate FiO2 11/24/18 09:10 60 101/54 11/24/18 08:43 60 22 40 11/24/18 08:00 40 11/24/18 08:00 96.5 75 23 101/54 (70) 100 11/24/18 07:06 62 20 40 11/24/18 07:05 Mechanical Ventilator 40 11/24/18 07:05 97 Mechanical Ventilator 40 11/24/18 05:02 77 21 40 11/24/18 04:00 Mechanical Ventilator 11/24/18 04:00 96.6 85 28 101/60 (74) 100 11/24/18 04:00 40 11/24/18 03:26 84 11/24/18 02:41 88 20 40 11/24/18 00:57 79 21 40 11/24/18 00:00 Mechanical Ventilator 11/24/18 00:00 97.8 80 25 115/65 (82) 100 11/23/18 23:36 79 11/23/18 23:02 85 23 40 11/23/18 21:00 78 21 40 11/23/18 20:00 40 11/23/18 20:00 Mechanical Ventilator 11/23/18 20:00 97.7 80 23 125/98 (107) 100 11/23/18 19:26 80 11/23/18 18:59 82 21 40 11/23/18 18:58 99 Mechanical Ventilator 40 11/23/18 18:58 Mechanical Ventilator 40 11/23/18 17:00 73 20 40 11/23/18 16:00 75 11/23/18 16:00 40 11/23/18 16:00 97.9 72 20 103/62 (76) 100 11/23/18 16:00 Mechanical Ventilator 11/23/18 15:15 75 21 40 11/23/18 14:04 78 24 40 11/23/18 12:00 79 11/23/18 12:00 40 11/23/18 12:00 97.7 77 26 114/83 (93) 100 11/23/18 12:00 Mechanical Ventilator 11/23/18 11:11 77 21 40 Intake and Output 11/23/18 11/24/18 19:00 07:00 Intake Total 685 ml 805 ml Output Total 2000 ml Balance -1315 ml 805 ml Free Water 90 ml 200 ml IV Total 55 ml 110 ml Tube Feeding 540 ml 495 ml Hemodialysis UF 2000 ml # Bowel Movements 2 4 Laboratory Tests Test 11/23/18 11:56 Random Vancomycin Level 15.2 ug/mL Height (Feet): 5 Height (Inches): 5.00 Weight (Pounds): 204 General Appearance: WD/WN, no apparent distress, alert Cardiovascular: normal rate Respiratory/Chest: normal breath sounds, no respiratory distress, other - Tracheostomy dependent Abdominal Exam: normal bowel sounds, non tender, soft, GT site - Clean dry and intact Extremities: non-tender Kevlin Briggs [employer] Nov 24, 2018 10:26
[2018-11-24 12:00] VITALS: BP 124/34
--- NOTE | 2018-11-24 12:03 | Pulmonology Progress Note ---
Assessment/Plan Assessment/Plan 1. Resp failure, hypercapneic 2. End-stage renal disease, on dialysis, status post multiple upper extremity vascular procedures. 3. Coronary artery bypass surgery. 4. Diabetes. 5. Dysphonia, tongue swelling; s/p trach PLAN: continue weaning trials tolerates feeds disc w RN continues to be ready for LTAC Subjective ROS Limited/Unobtainable: Yes Allergies: Coded Allergies: CEPHALEXIN (Unverified Allergy, Unknown, 02/24/14) SULFAMETHOXAZOLE (Unverified Allergy, Unknown, 02/24/14) TRIMETHOPRIM (Unverified Allergy, Unknown, 02/24/14) Objective Last 24 Hour Vital Signs Date Time Temp Pulse Resp B/P (MAP) Pulse Ox O2 Delivery O2 Flow Rate FiO2 11/24/18 11:01 68 24 40 11/24/18 09:10 60 101/54 11/24/18 08:43 60 22 40 11/24/18 08:00 40 11/24/18 08:00 74 11/24/18 08:00 96.5 75 23 101/54 (70) 100 11/24/18 07:06 62 20 40 11/24/18 07:05 Mechanical Ventilator 40 11/24/18 07:05 97 Mechanical Ventilator 40 11/24/18 05:02 77 21 40 11/24/18 04:00 Mechanical Ventilator 11/24/18 04:00 96.6 85 28 101/60 (74) 100 11/24/18 04:00 40 11/24/18 03:26 84 11/24/18 02:41 88 20 40 11/24/18 00:57 79 21 40 11/24/18 00:00 Mechanical Ventilator 11/24/18 00:00 97.8 80 25 115/65 (82) 100 11/23/18 23:36 79 11/23/18 23:02 85 23 40 11/23/18 21:00 78 21 40 11/23/18 20:00 40 11/23/18 20:00 Mechanical Ventilator 11/23/18 20:00 97.7 80 23 125/98 (107) 100 11/23/18 19:26 80 11/23/18 18:59 82 21 40 11/23/18 18:58 99 Mechanical Ventilator 40 11/23/18 18:58 Mechanical Ventilator 40 11/23/18 17:00 73 20 40 11/23/18 16:00 75 11/23/18 16:00 40 11/23/18 16:00 97.9 72 20 103/62 (76) 100 11/23/18 16:00 Mechanical Ventilator 11/23/18 15:15 75 21 40 11/23/18 14:04 78 24 40 Intake and Output 11/23/18 11/24/18 19:00 07:00 Intake Total 685 ml 805 ml Output Total 2000 ml Balance -1315 ml 805 ml Free Water 90 ml 200 ml IV Total 55 ml 110 ml Tube Feeding 540 ml 495 ml Hemodialysis UF 2000 ml # Bowel Movements 2 4 Objective trach on vent General Appearance: no acute distress HEENT: atraumatic Respiratory/Chest: lungs clear Cardiovascular: normal rate Current Medications Medications (Trade) Dose Ordered Sig/Aleks Route PRN Reason Start Time Stop Time Status Last Admin Dose Admin Acetaminophen (Tylenol) 650 mg Q4H PRN NG Mild Pain/Temp > 100.5 11/12/18 19:00 12/12/18 18:47 Amlodipine Besylate (Norvasc) 2.5 mg DAILY GT 11/22/18 09:00 12/22/18 08:59 11/24/18 09:10 Aspirin (ASA) 81 mg DAILY GT 11/20/18 09:00 12/20/18 08:59 11/24/18 09:10 Atorvastatin Calcium (Lipitor) 10 mg BEDTIME NG 11/12/18 21:00 12/02/18 20:59 11/23/18 20:14 Chlorhexidine Gluconate (Glo-Hex 2%) 1 applic DAILY@1999 TOPIC 11/11/18 20:00 12/08/18 19:59 11/23/18 20:15 Collagenase (Santyl) 1 applic DAILY@2099 TOPIC 11/14/18 21:00 12/14/18 20:59 11/23/18 20:15 Dextrose (Dextrose 50%) 25 ml Q30M PRN IV Hypoglycemia 11/11/18 14:45 11/30/18 22:44 Dextrose (Dextrose 50%) 50 ml Q30M PRN IV Hypoglycemia 11/11/18 14:45 11/30/18 22:44 Docusate Sodium (Colace) 100 mg EVERY 8 HOURS GT 11/20/18 14:00 5/5/19 13:59 11/24/18 05:13 Haloperidol Lactate (Haldol) 5 mg Q6H PRN IM Agitation 11/23/18 12:00 12/23/18 11:59 Hydralazine HCl (Apresoline) 10 mg Q6H PRN IV For High Blood Pressure 11/11/18 14:39 12/11/18 14:38 Insulin Aspart (NovoLOG) EVERY 6 HOURS SUBQ 11/12/18 12:00 12/01/18 06:29 11/24/18 05:18 Lactulose (Cephulac) 20 gm THREE TIMES A DAY GT 11/23/18 18:00 12/23/18 17:59 11/24/18 09:10 Lansoprazole (Prevacid) 30 mg BID GT 11/20/18 09:00 12/20/18 08:59 11/24/18 09:10 Lorazepam (Ativan) 1 mg EVERY 6 HOURS PRN GT For Anxiety 11/20/18 22:00 11/27/18 21:59 11/23/18 23:59 Micafungin Sodium 100 mg/Sodium Chloride 110 ml @ 110 mls/hr Q24H IVPB 11/13/18 18:00 11/27/18 17:59 11/23/18 18:37 Nicotine (Nicoderm) 1 patch Q24H TDERMAL 11/11/18 22:15 12/01/18 22:14 11/23/18 22:08 Olanzapine (ZyPREXA) 2.5 mg BEDTIME NG 11/13/18 21:00 12/13/18 20:59 11/23/18 20:15 Olanzapine (ZyPREXA) 2.5 mg Q6H PRN ORAL agitation 11/15/18 23:00 12/15/18 22:59 Polyethylene Glycol (Miralax) 17 gm BEDTIME ORAL 11/23/18 21:00 12/23/18 20:59 11/23/18 20:14 Polyethylene Glycol (Miralax) 17 gm DAILYPRN PRN NG Constipation 11/12/18 19:00 12/11/18 15:29 11/13/18 05:30 Sevelamer Carbonate (Renvela) 800 mg Q8HR GT 11/20/18 14:00 12/20/18 13:59 11/24/18 05:13 Tacrolimus (Prograf) 2 mg MoWeFr@0000,1200 ORAL 11/13/18 00:00 12/02/18 00:00 11/23/18 12:29 Tacrolimus (Prograf) 2 mg SuTuThSa@0900,2100 ORAL 11/17/18 21:00 12/17/18 20:59 11/24/18 09:10 Saroj Mendoza MD Nov 24, 2018 12:03
--- NOTE | 2018-11-24 12:45 | Nephrology Progress Note ---
Assessment/Plan Problem List: (1) ESRD (end stage renal disease) on dialysis (2) Foot ulcer (3) CHF (congestive heart failure) (4) Pacemaker (5) Acute respiratory failure Assessment: with Co2 retention Assessment ESRD with high K and SOB on admit Foot ulcer, likely infected High Troponin likely NSTMI Pacer , Pleural effusion s/p CABGS s/p Liver transplant Plan Now has tracheostomy and PEG Adjust BP meds HD next Antibiotics by ID start tube feeding / hasPEG per cardio and ID Podiatry and Vascular surgical fu ? DC planning? Subjective ROS Limited/Unobtainable: No Interval Events/Complaints also medicine coverage for Dr jesus Objective Objective Last 24 Hour Vital Signs Date Time Temp Pulse Resp B/P (MAP) Pulse Ox O2 Delivery O2 Flow Rate FiO2 11/24/18 11:01 68 24 40 11/24/18 09:10 60 101/54 11/24/18 08:43 60 22 40 11/24/18 08:00 40 11/24/18 08:00 74 11/24/18 08:00 96.5 75 23 101/54 (70) 100 11/24/18 07:06 62 20 40 11/24/18 07:05 Mechanical Ventilator 40 11/24/18 07:05 97 Mechanical Ventilator 40 11/24/18 05:02 77 21 40 11/24/18 04:00 Mechanical Ventilator 11/24/18 04:00 96.6 85 28 101/60 (74) 100 11/24/18 04:00 40 11/24/18 03:26 84 11/24/18 02:41 88 20 40 11/24/18 00:57 79 21 40 11/24/18 00:00 Mechanical Ventilator 11/24/18 00:00 97.8 80 25 115/65 (82) 100 11/23/18 23:36 79 11/23/18 23:02 85 23 40 11/23/18 21:00 78 21 40 11/23/18 20:00 40 11/23/18 20:00 Mechanical Ventilator 11/23/18 20:00 97.7 80 23 125/98 (107) 100 11/23/18 19:26 80 11/23/18 18:59 82 21 40 11/23/18 18:58 99 Mechanical Ventilator 40 11/23/18 18:58 Mechanical Ventilator 40 11/23/18 17:00 73 20 40 11/23/18 16:00 75 11/23/18 16:00 40 11/23/18 16:00 97.9 72 20 103/62 (76) 100 11/23/18 16:00 Mechanical Ventilator 11/23/18 15:15 75 21 40 11/23/18 14:04 78 24 40 Intake and Output 11/23/18 11/24/18 19:00 07:00 Intake Total 685 ml 805 ml Output Total 2000 ml Balance -1315 ml 805 ml Free Water 90 ml 200 ml IV Total 55 ml 110 ml Tube Feeding 540 ml 495 ml Hemodialysis UF 2000 ml # Bowel Movements 2 4 Height (Feet): 5 Height (Inches): 5.00 Weight (Pounds): 204 Neck: other - trach Cardiovascular: normal rate Respiratory/Chest: decreased breath sounds Abdomen: other - PEG Objective no other change Nakul Stevens MD Nov 24, 2018 12:45
[2018-11-24] MEDS: Acetaminophen 650mg/20.3ml NG PRN (13:34)
--- NOTE | 2018-11-24 15:00 | Cardiology Progress Note ---
Assessment/Plan Status: stable Assessment/Plan Assessment/Plan Assessment/Plan 1. Troponin leak with no chest pain. Hx of CABG. Due to renal failure. On Coreg 6.25 mg bid, aspirin and Lipitor 2. S/P CABG - outpatient stress test 3. Nonsustained ventricular tachycardia. Hx of old [place] and CABG. EF 55%. No Syncope, monitor electrolytes 4. Congestive heart failure. On hemodialysis 5. End-stage renal disease, on hemodialysis per Dr. Stevens 6. Status post right sided [employer]onic dual chamber pacemaker with Nl Fx. 7. Right foot ulcer. Antibiotic per Dr. Landis. FU by Dr. Huizar 8. History of liver transplant on Prograf 9. Respiratory failure, ? etiology anaphylaxis. S/P Emergency tracheostomy. Weaned off the vent on T Piece 10. Pleural effusion. FU Dr. Mendoza 11. Dysphagia, S/P PEG Dispo planning [place] when approved Subjective Cardiovascular: Reports: no symptoms Respiratory: Reports: no symptoms Gastrointestinal/Abdominal: Reports: no symptoms Genitourinary: Reports: no symptoms Subjective [employer] Objective Last 24 Hour Vital Signs Date Time Temp Pulse Resp B/P (MAP) Pulse Ox O2 Delivery O2 Flow Rate FiO2 11/24/18 13:22 90 26 40 11/24/18 12:00 98.2 75 21 124/34 (64) 100 11/24/18 12:00 80 11/24/18 12:00 40 11/24/18 12:00 Mechanical Ventilator 11/24/18 11:01 68 24 40 11/24/18 09:10 60 101/54 11/24/18 08:43 60 22 40 11/24/18 08:00 Mechanical Ventilator 11/24/18 08:00 40 11/24/18 08:00 74 11/24/18 08:00 96.5 75 23 101/54 (70) 100 11/24/18 07:06 62 20 40 11/24/18 07:05 Mechanical Ventilator 40 11/24/18 07:05 97 Mechanical Ventilator 40 11/24/18 05:02 77 21 40 11/24/18 04:00 Mechanical Ventilator 11/24/18 04:00 96.6 85 28 101/60 (74) 100 11/24/18 04:00 40 11/24/18 03:26 84 11/24/18 02:41 88 20 40 11/24/18 00:57 79 21 40 11/24/18 00:00 Mechanical Ventilator 11/24/18 00:00 97.8 80 25 115/65 (82) 100 11/23/18 23:36 79 11/23/18 23:02 85 23 40 11/23/18 21:00 78 21 40 11/23/18 20:00 40 11/23/18 20:00 Mechanical Ventilator 11/23/18 20:00 97.7 80 23 125/98 (107) 100 11/23/18 19:26 80 11/23/18 18:59 82 21 40 11/23/18 18:58 99 Mechanical Ventilator 40 11/23/18 18:58 Mechanical Ventilator 40 11/23/18 17:00 73 20 40 11/23/18 16:00 75 11/23/18 16:00 40 11/23/18 16:00 97.9 72 20 103/62 (76) 100 11/23/18 16:00 Mechanical Ventilator 11/23/18 15:15 75 21 40 General Appearance: no apparent distress EENT: PERRL/EOMI, normal ENT inspection, TMs normal Neck: non-tender, normal alignment, supple, normal inspection, no JVD Rhythm: NSR Cardiovascular: normal peripheral pulses, normal rate Respiratory/Chest: chest wall non-tender, lungs clear Abdomen: normal bowel sounds, non tender, soft, no organomegaly, no mass Extremities: normal range of motion, non-tender, normal inspection, no calf tenderness, no swelling Neurologic: leasing machine tender 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 normal, no motor/sensory deficits Intake and Output 11/23/18 11/24/18 19:00 07:00 Intake Total 685 ml 805 ml Output Total 2000 ml Balance -1315 ml 805 ml Free Water 90 ml 200 ml IV Total 55 ml 110 ml Tube Feeding 540 ml 495 ml Hemodialysis UF 2000 ml # Bowel Movements 2 4 Dhruv Jin MD Nov 24, 2018 15:00
[2018-11-24 16:00] VITALS: BP 91/77
[2018-11-24] MEDS: Micafungin 100 MG in NS 110 ML IVPB SCH (17:34)
--- NOTE | 2018-11-24 17:53 | Infectious Diseases Prog Note ---
Assessment/Plan Problems: (1) Fever Assessment & Plan: with mild leukocytosis, resolved , suspect due to massive recurrent right side pleural effusion with possible pneumonia , S/P repeated thoracentesis with removal of 1.5 liter of fluids , S/P vancomycin and aztreonam empirically for 8 days , monitor off antibiotics . (2) Thrush, oral Assessment & Plan: continue local nystatin , and iv micafungin to treat him since fluconazole has many interaction with his transplants meds . may need to rule out esophageal sergio since immunocompromised (3) HCV antibody positive Assessment & Plan: no evidence of active infection, with undetectable viral load , suspect due to previous infection , cleared, S/P liver transplant . (4) Foot ulcer Assessment & Plan: in diabetic patient , with MRSA , S/P vancomycin treatment with HD for two weeks , pending vascular eval and possible surgical debridement. bone scan ruled out osteomyelitis of the heel . follow up with supervisor of way (5) DM (diabetes mellitus) Assessment & Plan: recommend tight glycemic control to keep blood glucose between 100-140 (6) CHF (congestive heart failure) Assessment & Plan: on HD , renal is following, monitor daily weight (7) Encephalopathy acute Assessment & Plan: suspect metabolic, with high urea level, waxing and waning , now improved (8) Severe tongue swelling Assessment & Plan: improving initially after steroids , but got worse later, with respiratory compromise , had tracheostomy to protect his airway since respiratory status worsened . now improving, pulmonary is following (9) Pleural effusion Assessment & Plan: recurrent on the right, with lung collapse , S/P thoracentesis X2 with removal of 1.5 cc of clear fluids. PREVIOUS culture were negative with negative cytology Subjective Constitutional: Reports: no symptoms HEENT: Reports: no symptoms Respiratory: Reports: no symptoms Breasts: Reports: no symptoms Cardiovascular: Reports: no symptoms Gastrointestinal/Abdominal: Reports: no symptoms Genitourinary: Reports: no symptoms Neurologic: Reports: no symptoms Psychiatric: Reports: no symptoms Skin: Reports: no symptoms Endocrine: Reports: no symptoms Hematologic: Reports: no symptoms Allergies: Coded Allergies: CEPHALEXIN (Unverified Allergy, Unknown, 02/24/14) SULFAMETHOXAZOLE (Unverified Allergy, Unknown, 02/24/14) TRIMETHOPRIM (Unverified Allergy, Unknown, 02/24/14) Subjective he was ok comfortable, has less facial swelling and tongue swelling , awake and responsive, no fever or chills, no significant secretions , no SOB . has less thrush on his tongue Objective Vital Signs Last 24 Hour Vital Signs Date Time Temp Pulse Resp B/P (MAP) Pulse Ox O2 Delivery O2 Flow Rate FiO2 11/24/18 17:00 80 28 40 11/24/18 15:00 82 24 40 11/24/18 13:22 90 26 40 11/24/18 12:00 98.2 75 21 124/34 (64) 100 11/24/18 12:00 80 11/24/18 12:00 40 11/24/18 12:00 Mechanical Ventilator 11/24/18 11:01 68 24 40 11/24/18 09:10 60 101/54 11/24/18 08:43 60 22 40 11/24/18 08:00 Mechanical Ventilator 11/24/18 08:00 40 11/24/18 08:00 74 11/24/18 08:00 96.5 75 23 101/54 (70) 100 11/24/18 07:06 62 20 40 11/24/18 07:05 Mechanical Ventilator 40 11/24/18 07:05 97 Mechanical Ventilator 40 11/24/18 05:02 77 21 40 11/24/18 04:00 Mechanical Ventilator 11/24/18 04:00 96.6 85 28 101/60 (74) 100 11/24/18 04:00 40 11/24/18 03:26 84 11/24/18 02:41 88 20 40 11/24/18 00:57 79 21 40 11/24/18 00:00 Mechanical Ventilator 11/24/18 00:00 97.8 80 25 115/65 (82) 100 11/23/18 23:36 79 11/23/18 23:02 85 23 40 11/23/18 21:00 78 21 40 11/23/18 20:00 40 11/23/18 20:00 Mechanical Ventilator 11/23/18 20:00 97.7 80 23 125/98 (107) 100 11/23/18 19:26 80 11/23/18 18:59 82 21 40 11/23/18 18:58 99 Mechanical Ventilator 40 11/23/18 18:58 Mechanical Ventilator 40 Height (Feet): 5 Height (Inches): 5.00 Weight (Pounds): 204 General Appearance: WD/WN, no acute distress HEENT: normocephalic, atraumatic, anicteric, mucous membranes moist, PERRL, supple, no JVD, status post trach Respiratory/Chest: chest wall non-tender, lungs clear, normal breath sounds, no respiratory distress, no accessory muscle use, decreased breath sounds Cardiovascular: normal peripheral pulses, normal rate, regular rhythm, no gallop/murmur, no JVD Abdomen: normal bowel sounds, soft, non tender, no organomegaly, non distended , no mass, no scars Extremities: no cyanosis, no clubbing Skin: no rash, no lesions, no ulcers 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: alert, responsive Lymphatic: no neck adenopathy, no groin adenopathy Musculoskeletal: normal muscle bulk, no effusion Current Medications Medications (Trade) Dose Ordered Sig/Aleks Route PRN Reason Start Time Stop Time Status Last Admin Dose Admin Acetaminophen (Tylenol) 650 mg Q4H PRN NG Mild Pain/Temp > 100.5 11/12/18 19:00 12/12/18 18:47 11/24/18 13:34 Amlodipine Besylate (Norvasc) 2.5 mg DAILY GT 11/22/18 09:00 12/22/18 08:59 11/24/18 09:10 Aspirin (ASA) 81 mg DAILY GT 11/20/18 09:00 12/20/18 08:59 11/24/18 09:10 Atorvastatin Calcium (Lipitor) 10 mg BEDTIME NG 11/12/18 21:00 12/02/18 20:59 11/23/18 20:14 Chlorhexidine Gluconate (Glo-Hex 2%) 1 applic DAILY@1999 TOPIC 11/11/18 20:00 12/08/18 19:59 11/23/18 20:15 Collagenase (Santyl) 1 applic DAILY@2099 TOPIC 11/14/18 21:00 12/14/18 20:59 11/23/18 20:15 Dextrose (Dextrose 50%) 25 ml Q30M PRN IV Hypoglycemia 11/11/18 14:45 11/30/18 22:44 Dextrose (Dextrose 50%) 50 ml Q30M PRN IV Hypoglycemia 11/11/18 14:45 11/30/18 22:44 Docusate Sodium (Colace) 100 mg EVERY 8 HOURS GT 11/20/18 14:00 12/20/18 13:59 11/24/18 05:13 Hydralazine HCl (Apresoline) 10 mg Q6H PRN IV For High Blood Pressure 11/11/18 14:39 12/11/18 14:38 Insulin Aspart (NovoLOG) EVERY 6 HOURS SUBQ 11/12/18 12:00 12/01/18 06:29 11/24/18 17:35 Lactulose (Cephulac) 20 gm THREE TIMES A DAY GT 11/23/18 18:00 12/23/18 17:59 11/24/18 09:10 Lansoprazole (Prevacid) 30 mg BID GT 11/20/18 09:00 12/20/18 08:59 11/24/18 17:34 Lorazepam (Ativan) 1 mg EVERY 6 HOURS PRN GT For Anxiety 11/20/18 22:00 11/27/18 21:59 11/23/18 23:59 Micafungin Sodium 100 mg/Sodium Chloride 110 ml @ 110 mls/hr Q24H IVPB 11/13/18 18:00 11/27/18 17:59 11/24/18 17:34 Nicotine (Nicoderm) 1 patch Q24H TDERMAL 11/11/18 22:15 12/01/18 22:14 11/23/18 22:08 Olanzapine (ZyPREXA) 2.5 mg BEDTIME NG 11/13/18 21:00 12/13/18 20:59 11/23/18 20:15 Olanzapine (ZyPREXA) 2.5 mg Q6H PRN ORAL agitation 11/15/18 23:00 12/15/18 22:59 Polyethylene Glycol (Miralax) 17 gm BEDTIME ORAL 11/23/18 21:00 12/23/18 20:59 11/23/18 20:14 Polyethylene Glycol (Miralax) 17 gm DAILYPRN PRN NG Constipation 11/12/18 19:00 12/11/18 15:29 11/13/18 05:30 Sevelamer Carbonate (Renvela) 800 mg Q8HR GT 11/20/18 14:00 12/20/18 13:59 11/24/18 13:38 Tacrolimus (Prograf) 2 mg MoWeFr@0000,1200 ORAL 11/13/18 00:00 12/02/18 00:00 11/23/18 12:29 Tacrolimus (Prograf) 2 mg TrudiNaren@0900,2100 ORAL 11/17/18 21:00 12/17/18 20:59 11/24/18 09:10 Francois Landis M.D. Nov 24, 2018 17:53
--- NOTE | 2018-11-24 18:01 | Diagnostic Imaging Report ---
Indication: Shortness of breath Technique: One lateral view only of the chest, per order Comparison: 11/17/2018 AP chest Findings: Lateral view is limited due to body habitus. It demonstrates large bilateral pleural effusions. There is probably parenchymal interstitial edema as well. Pacemaker, tracheostomy, left atrial appendage clips are again demonstrated Impression: Limited exam, as described; only lateral view obtained. Large bilateral pleural effusions Interstitial edema Other findings as noted
[2018-11-24] MEDS ORDERED: Lactulose 20gm/30ml UDC GT PRN (18:51)
[2018-11-24] MEDS ORDERED: Docusate 100mg/10ml Liq GT PRN (18:51)
[2018-11-24 20:00] VITALS: BP 101/80
[2018-11-24] MEDS: Dyna-Hex 2% Top Sol 2oz TOPIC SCH (20:23)
[2018-11-24] MEDS: LORazepam 1mg tab GT PRN (20:23)
[2018-11-24] MEDS: OLANZapine 2.5mg tab NG SCH (20:23)
[2018-11-24] MEDS: Miralax 17gm pkt ORAL SCH (20:24)
--- NOTE | 2018-11-24 21:47 | General Progress Note ---
Assessment/Plan Problem List: (1) Encephalopathy acute ICD Codes: G93.40 - Encephalopathy, unspecified SNOMED: 36580738, [id number] Assessment/Plan Zyprexa 2.5mg po qhs haldol IM prn the pt lacks capacity ativan 1mg gt prior to weaning off from vent Subjective 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: Reports: anxiety, depressed Allergies: Coded Allergies: CEPHALEXIN (Unverified Allergy, Unknown, 02/24/14) SULFAMETHOXAZOLE (Unverified Allergy, Unknown, 02/24/14) TRIMETHOPRIM (Unverified Allergy, Unknown, 02/24/14) Subjective the pt was disoriented non verbal the pt is the same no changes Objective Last 24 Hour Vital Signs Date Time Temp Pulse Resp B/P (MAP) Pulse Ox O2 Delivery O2 Flow Rate FiO2 11/24/18 20:00 98.2 80 21 101/80 (87) 100 11/24/18 20:00 40 11/24/18 20:00 Mechanical Ventilator 11/24/18 19:23 Mechanical Ventilator 40 11/24/18 19:23 78 20 40 11/24/18 19:23 100 Mechanical Ventilator 40 11/24/18 19:09 78 11/24/18 17:00 80 28 40 11/24/18 16:00 78 11/24/18 16:00 98.0 75 21 91/77 (82) 100 11/24/18 16:00 Mechanical Ventilator 11/24/18 16:00 40 11/24/18 15:00 82 24 40 11/24/18 13:22 90 26 40 11/24/18 12:00 98.2 75 21 124/34 (64) 100 11/24/18 12:00 80 11/24/18 12:00 40 11/24/18 12:00 Mechanical Ventilator 11/24/18 11:01 68 24 40 11/24/18 09:10 60 101/54 11/24/18 08:43 60 22 40 11/24/18 08:00 Mechanical Ventilator 11/24/18 08:00 40 11/24/18 08:00 74 11/24/18 08:00 96.5 75 23 101/54 (70) 100 11/24/18 07:06 62 20 40 11/24/18 07:05 Mechanical Ventilator 40 11/24/18 07:05 97 Mechanical Ventilator 40 11/24/18 05:02 77 21 40 11/24/18 04:00 Mechanical Ventilator 11/24/18 04:00 96.6 85 28 101/60 (74) 100 11/24/18 04:00 40 11/24/18 03:26 84 11/24/18 02:41 88 20 40 11/24/18 00:57 79 21 40 11/24/18 00:00 Mechanical Ventilator 11/24/18 00:00 97.8 80 25 115/65 (82) 100 11/23/18 23:36 79 11/23/18 23:02 85 23 40 Intake and Output 11/23/18 11/24/18 18:59 06:59 Intake Total 685 ml 850 ml Output Total 2000 ml Balance -1315 ml 850 ml Free Water 90 ml 200 ml IV Total 55 ml 110 ml Tube Feeding 540 ml 540 ml Hemodialysis UF 2000 ml # Bowel Movements 2 4 Height (Feet): 5 Height (Inches): 5.00 Weight (Pounds): 204 General Appearance: alert, confused, agitated Jeffrey Lala MD Nov 24, 2018 21:47
[2018-11-25] VITALS: BP 124/67
[2018-11-25 04:00] VITALS: BP 120/70
[2018-11-25 04:06] LABS: BASOPHILS % (AUTO) 0.8 % (0.0-2.0); HEMATOCRIT 39.5 % (42.0-52.0); HEMOGLOBIN 12.2 G/DL (14.2-18.0); LYMPHOCYTES % (AUTO) 10.7 % (20.0-45.0); MEAN CORPUSCULAR VOLUME 81 FL (80-99); NEUTROPHILS % (AUTO) 81.5 % (45.0-75.0); PLATELET COUNT 169 K/UL (150-450); RED BLOOD COUNT 4.88 M/UL (4.70-6.10); RED CELL DISTRIBUTION WIDTH 17.2 % (11.6-14.8); WHITE BLOOD COUNT 10.8 K/UL (4.8-10.8)
[2018-11-25 04:15] LABS: ALANINE AMINOTRANSFERASE 11 U/L (12-78); ALBUMIN 2.1 G/DL (3.4-5.0); ALBUMIN/GLOBULIN RATIO 0.5 (1.0-2.7); ALKALINE PHOSPHATASE 92 U/L (46-116); ANION GAP 8 mmol/L (5-15); ASPARTATE AMINO TRANSFERASE 15 U/L (15-37); BILIRUBIN,TOTAL 0.3 MG/DL (0.2-1.0); BLOOD UREA NITROGEN 73 mg/dL (7-18); CALCIUM 8.5 MG/DL (8.5-10.1); CARBON DIOXIDE 29 MMOL/L (21-32); CHLORIDE 95 MMOL/L (98-107); CREATININE 7.7 MG/DL (0.55-1.30); PHOSPHORUS 3.8 MG/DL (2.5-4.9); POTASSIUM 4.8 MMOL/L (3.5-5.1); SODIUM 132 MMOL/L (136-145)
[2018-11-25] MEDS: Renvela 800mg Pkt GT SCH ×3 (05:12→21:25)
[2018-11-25] MEDS: NovoLOG Insulin Flexpen SUBQ SCH ×3 (05:13→18:00)
[2018-11-25 08:00] VITALS: BP 135/72
[2018-11-25] MEDS: Aspirin Baby 81mg GT SCH (08:27)
--- NOTE | 2018-11-25 08:45 | Pulmonology Progress Note ---
Assessment/Plan Assessment/Plan 1. Resp failure, hypercapneic 2. End-stage renal disease, on dialysis, status post multiple upper extremity vascular procedures. 3. Coronary artery bypass surgery. 4. Diabetes. 5. Dysphonia, tongue swelling; s/p trach PLAN: continue weaning trials; not tolerating so far tolerates feeds not tolerating PMV disc w RN continues to be ready for LTAC Subjective ROS Limited/Unobtainable: Yes Allergies: Coded Allergies: CEPHALEXIN (Unverified Allergy, Unknown, 02/24/14) SULFAMETHOXAZOLE (Unverified Allergy, Unknown, 02/24/14) TRIMETHOPRIM (Unverified Allergy, Unknown, 02/24/14) Objective Last 24 Hour Vital Signs Date Time Temp Pulse Resp B/P (MAP) Pulse Ox O2 Delivery O2 Flow Rate FiO2 11/25/18 08:27 80 120/70 11/25/18 07:32 Mechanical Ventilator 40 11/25/18 07:32 100 Mechanical Ventilator 40 11/25/18 07:05 80 24 40 11/25/18 05:15 82 31 40 11/25/18 04:00 98.4 84 22 120/70 (87) 100 11/25/18 04:00 Mechanical Ventilator 11/25/18 04:00 40 11/25/18 03:45 79 11/25/18 03:24 79 30 40 11/25/18 01:21 84 28 40 11/25/18 00:00 Mechanical Ventilator 11/25/18 00:00 98.0 83 24 124/67 (86) 100 11/24/18 23:30 73 11/24/18 22:30 74 22 40 11/24/18 21:30 74 21 40 11/24/18 20:00 98.2 80 21 101/80 (87) 100 11/24/18 20:00 40 11/24/18 20:00 Mechanical Ventilator 11/24/18 19:23 Mechanical Ventilator 40 11/24/18 19:23 78 20 40 11/24/18 19:23 100 Mechanical Ventilator 40 11/24/18 19:09 78 11/24/18 17:00 80 28 40 11/24/18 16:00 78 11/24/18 16:00 98.0 75 21 91/77 (82) 100 11/24/18 16:00 Mechanical Ventilator 11/24/18 16:00 40 11/24/18 15:00 82 24 40 11/24/18 13:22 90 26 40 11/24/18 12:00 98.2 75 21 124/34 (64) 100 11/24/18 12:00 80 11/24/18 12:00 40 11/24/18 12:00 Mechanical Ventilator 11/24/18 11:01 68 24 40 11/24/18 09:10 60 101/54 Intake and Output 11/24/18 11/25/18 19:00 07:00 Intake Total 660 ml 780 ml Balance 660 ml 780 ml Intake Oral 0 ml Free Water 120 ml 175 ml IV Total 110 ml Tube Feeding 540 ml 495 ml # Bowel Movements 5 Objective trach on vent General Appearance: no acute distress Respiratory/Chest: lungs clear Laboratory Tests 11/25/18 03:30: White Blood Count 10.8, Red Blood Count 4.88, Hemoglobin 12.2L, Hematocrit 39.5L , Mean Corpuscular Volume 81, Mean Corpuscular Hemoglobin 24.9L, Mean Corpuscular Hemoglobin Concent 30.8L, Red Cell Distribution Width 17.2H, Platelet Count 169, Mean Platelet Volume 8.6, Neutrophils (%) (Auto) 81.5H, Lymphocytes (%) (Auto) 10.7L, Monocytes (%) (Auto) 7.0, Eosinophils (%) (Auto) 0.0, Basophils (%) (Auto) 0.8, Sodium Level 132L, Potassium Level 4.8, Chloride Level 95L, Carbon Dioxide Level 29, Anion Gap 8, Blood Urea Nitrogen 73H, Creatinine 7.7H, Estimat Glomerular Filtration Rate 7.1, Glucose Level 160H, Calcium Level 8.5, Phosphorus Level 3.8, Magnesium Level 2.3, Total Bilirubin 0.3, Aspartate Amino Transf (AST/SGOT) 15, Alanine Aminotransferase (ALT/SGPT) 11L, Alkaline Phosphatase 92, C-Reactive Protein, Quantitative 7.3H, Pro-B-Type Natriuretic Peptide > 96932P, Total Protein 6.4, Albumin 2.1L, Globulin 4.3, Albumin/Globulin Ratio 0.5L Current Medications Medications (Trade) Dose Ordered Sig/Aleks Route PRN Reason Start Time Stop Time Status Last Admin Dose Admin Acetaminophen (Tylenol) 650 mg Q4H PRN NG Mild Pain/Temp > 100.5 11/12/18 19:00 12/12/18 18:47 11/24/18 13:34 Amlodipine Besylate (Norvasc) 2.5 mg DAILY GT 11/22/18 09:00 12/22/18 08:59 11/25/18 08:27 Aspirin (ASA) 81 mg DAILY GT 11/20/18 09:00 12/20/18 08:59 11/25/18 08:27 Atorvastatin Calcium (Lipitor) 10 mg BEDTIME NG 11/12/18 21:00 12/02/18 20:59 11/24/18 20:23 Chlorhexidine Gluconate (Glo-Hex 2%) 1 applic DAILY@1999 TOPIC 11/11/18 20:00 12/08/18 19:59 11/24/18 20:23 Collagenase (Santyl) 1 applic DAILY@2099 TOPIC 11/14/18 21:00 12/14/18 20:59 11/24/18 20:23 Dextrose (Dextrose 50%) 25 ml Q30M PRN IV Hypoglycemia 11/11/18 14:45 11/30/18 22:44 Dextrose (Dextrose 50%) 50 ml Q30M PRN IV Hypoglycemia 11/11/18 14:45 11/30/18 22:44 Docusate Sodium (Colace) 100 mg EVERY 8 HOURS PRN GT constipation 11/24/18 18:51 12/20/18 18:50 Hydralazine HCl (Apresoline) 10 mg Q6H PRN IV For High Blood Pressure 11/11/18 14:39 12/11/18 14:38 Insulin Aspart (NovoLOG) EVERY 6 HOURS SUBQ 11/12/18 12:00 12/01/18 06:29 11/25/18 05:13 Lactulose (Cephulac) 20 gm THREE TIMES A DAY PRN GT Constipation 11/24/18 18:51 12/23/18 18:50 Lansoprazole (Prevacid) 30 mg BID GT 11/20/18 09:00 12/20/18 08:59 11/25/18 08:27 Lorazepam (Ativan) 1 mg EVERY 6 HOURS PRN GT For Anxiety 11/20/18 22:00 11/27/18 21:59 11/24/18 20:23 Micafungin Sodium 100 mg/Sodium Chloride 110 ml @ 110 mls/hr Q24H IVPB 11/13/18 18:00 11/27/18 17:59 11/24/18 17:34 Nicotine (Nicoderm) 1 patch Q24H TDERMAL 11/11/18 22:15 12/01/18 22:14 11/24/18 21:28 Olanzapine (ZyPREXA) 2.5 mg BEDTIME NG 11/13/18 21:00 12/13/18 20:59 11/24/18 20:23 Olanzapine (ZyPREXA) 2.5 mg Q6H PRN ORAL agitation 11/15/18 23:00 12/15/18 22:59 Polyethylene Glycol (Miralax) 17 gm BEDTIME ORAL 11/23/18 21:00 12/23/18 20:59 11/23/18 20:14 Polyethylene Glycol (Miralax) 17 gm DAILYPRN PRN NG Constipation 11/12/18 19:00 12/11/18 15:29 11/13/18 05:30 Sevelamer Carbonate (Renvela) 800 mg Q8HR GT 11/20/18 14:00 12/20/18 13:59 11/25/18 05:12 Tacrolimus (Prograf) 2 mg MoWeFr@0000,1200 ORAL 11/13/18 00:00 12/02/18 00:00 11/24/18 23:09 Tacrolimus (Prograf) 2 mg SuTuThSa@0900,2100 ORAL 11/17/18 21:00 12/17/18 20:59 11/24/18 20:30 Saroj Mendoza MD Nov 25, 2018 08:45
--- NOTE | 2018-11-25 11:04 | GI Progress Note ---
Assessment/Plan Problems: (1) Foot ulcer ICD Codes: L97.509 - Non-pressure chronic ulcer of other part of unspecified foot with unspecified severity SNOMED: 29875255 Qualifiers: Qualified Codes: L97.511 - Non-pressure chronic ulcer of other part of right foot limited to breakdown of skin (2) DM (diabetes mellitus) ICD Codes: E11.9 - Type 2 diabetes mellitus without complications SNOMED: 70150859 (3) Transplant ICD Codes: Z94.9 - Transplanted organ and tissue status, unspecified SNOMED: 858936748 Status: stable, unchanged Status Narrative Discussed with Dr. Escalera Assessment/Plan History of liver transplant, currently on Prograf constipation status post tracheostomy GTF HD per nephro supportive care cont tacrolimus prn transfusions ppi zofran prn Bowel regimen follow labs The patient was seen and examined at bedside and all new and available data was reviewed in the patients chart. I agree with the above findings, impression and plan. (Patient seen earlier today. Signature stamp does not reflect patient encounter time.). - Jorge Escalera MD Subjective Subjective Limited Objective Last 24 Hour Vital Signs Date Time Temp Pulse Resp B/P (MAP) Pulse Ox O2 Delivery O2 Flow Rate FiO2 11/25/18 08:55 78 26 40 11/25/18 08:27 80 120/70 11/25/18 08:00 85 11/25/18 08:00 40 11/25/18 08:00 Mechanical Ventilator 11/25/18 08:00 98.2 85 22 135/72 (93) 100 11/25/18 07:32 Mechanical Ventilator 40 11/25/18 07:32 100 Mechanical Ventilator 40 11/25/18 07:05 80 24 40 11/25/18 05:15 82 31 40 11/25/18 04:00 98.4 84 22 120/70 (87) 100 11/25/18 04:00 Mechanical Ventilator 11/25/18 04:00 40 11/25/18 03:45 79 11/25/18 03:24 79 30 40 11/25/18 01:21 84 28 40 11/25/18 00:00 Mechanical Ventilator 11/25/18 00:00 98.0 83 24 124/67 (86) 100 11/24/18 23:30 73 11/24/18 22:30 74 22 40 11/24/18 21:30 74 21 40 11/24/18 20:00 98.2 80 21 101/80 (87) 100 11/24/18 20:00 40 11/24/18 20:00 Mechanical Ventilator 11/24/18 19:23 Mechanical Ventilator 40 11/24/18 19:23 78 20 40 11/24/18 19:23 100 Mechanical Ventilator 40 11/24/18 19:09 78 11/24/18 17:00 80 28 40 11/24/18 16:00 78 11/24/18 16:00 98.0 75 21 91/77 (82) 100 11/24/18 16:00 Mechanical Ventilator 11/24/18 16:00 40 11/24/18 15:00 82 24 40 11/24/18 13:22 90 26 40 11/24/18 12:00 98.2 75 21 124/34 (64) 100 11/24/18 12:00 80 11/24/18 12:00 40 11/24/18 12:00 Mechanical Ventilator Intake and Output 11/24/18 11/25/18 19:00 07:00 Intake Total 660 ml 780 ml Balance 660 ml 780 ml Intake Oral 0 ml Free Water 120 ml 175 ml IV Total 110 ml Tube Feeding 540 ml 495 ml # Bowel Movements 5 Laboratory Tests Test 11/25/18 03:30 White Blood Count 10.8 K/UL (4.8-10.8) Red Blood Count 4.88 M/UL (4.70-6.10) Hemoglobin 12.2 G/DL (14.2-18.0) L Hematocrit 39.5 % (42.0-52.0) L Mean Corpuscular Volume 81 FL (80-99) Mean Corpuscular Hemoglobin 24.9 PG (27.0-31.0) L Mean Corpuscular Hemoglobin Concent 30.8 G/DL (32.0-36.0) L Red Cell Distribution Width 17.2 % (11.6-14.8) H Platelet Count 169 K/UL (150-450) Mean Platelet Volume 8.6 FL (6.5-10.1) Neutrophils (%) (Auto) 81.5 % (45.0-75.0) H Lymphocytes (%) (Auto) 10.7 % (20.0-45.0) L Monocytes (%) (Auto) 7.0 % (1.0-10.0) Eosinophils (%) (Auto) 0.0 % (0.0-3.0) Basophils (%) (Auto) 0.8 % (0.0-2.0) Sodium Level 132 MMOL/L (136-145) L Potassium Level 4.8 MMOL/L (3.5-5.1) Chloride Level 95 MMOL/L (98-107) L Carbon Dioxide Level 29 MMOL/L (21-32) Anion Gap 8 mmol/L (5-15) Blood Urea Nitrogen 73 mg/dL (7-18) H Creatinine 7.7 MG/DL (0.55-1.30) H Estimat Glomerular Filtration Rate 7.1 mL/min (>60) Glucose Level 160 MG/DL (74-106) H Calcium Level 8.5 MG/DL (8.5-10.1) Phosphorus Level 3.8 MG/DL (2.5-4.9) Magnesium Level 2.3 MG/DL (1.8-2.4) Total Bilirubin 0.3 MG/DL (0.2-1.0) Aspartate Amino Transf (AST/SGOT) 15 U/L (15-37) Alanine Aminotransferase (ALT/SGPT) 11 U/L (12-78) L Alkaline Phosphatase 92 U/L (46-116) C-Reactive Protein, Quantitative 7.3 mg/dL (0.00-0.90) H Pro-B-Type Natriuretic Peptide > 81351 pg/mL (0-125) H Total Protein 6.4 G/DL (6.4-8.2) Albumin 2.1 G/DL (3.4-5.0) L Globulin 4.3 g/dL Albumin/Globulin Ratio 0.5 (1.0-2.7) L Height (Feet): 5 Height (Inches): 5.00 Weight (Pounds): 201 General Appearance: WD/WN, no apparent distress, alert Cardiovascular: normal rate Respiratory/Chest: normal breath sounds, no respiratory distress Abdominal Exam: normal bowel sounds, non tender, soft, GT site Extremities: normal range of motion, non-tender Kelvin Briggs NP Nov 25, 2018 11:03
--- NOTE | 2018-11-25 11:22 | Cardiology Progress Note ---
Assessment/Plan Status: stable Assessment/Plan Assessment/Plan Assessment/Plan 1. Troponin leak with no chest pain. Hx of CABG. Due to renal failure. On Coreg 6.25 mg bid, aspirin and Lipitor 2. S/P CABG - outpatient stress test 3. Nonsustained ventricular tachycardia. Hx of old TX and CABG. EF 55%. No Syncope, monitor electrolytes 4. Congestive heart failure. On hemodialysis 5. End-stage renal disease, on hemodialysis per Dr. Stevens 6. Status post right sided [employer]onic dual chamber pacemaker with Nl Fx. 7. Right foot ulcer. Antibiotic per Dr. Landis. FU by Dr. Huizar 8. History of liver transplant on Prograf 9. Respiratory failure, ? etiology anaphylaxis. S/P Emergency tracheostomy. Weaned off the vent on T Piece 10. Pleural effusion. FU Dr. Mendoza 11. Dysphagia, S/P PEG Dispo planning [facility] when approved Subjective Cardiovascular: Reports: no symptoms Respiratory: Reports: no symptoms Gastrointestinal/Abdominal: Reports: no symptoms Genitourinary: Reports: no symptoms Subjective [facility] Awaiting placement, referral faxed Objective Last 24 Hour Vital Signs Date Time Temp Pulse Resp B/P (MAP) Pulse Ox O2 Delivery O2 Flow Rate FiO2 11/25/18 11:08 81 25 40 11/25/18 08:55 78 26 40 11/25/18 08:27 80 120/70 11/25/18 08:00 85 11/25/18 08:00 40 11/25/18 08:00 Mechanical Ventilator 11/25/18 08:00 98.2 85 22 135/72 (93) 100 11/25/18 07:32 Mechanical Ventilator 40 11/25/18 07:32 100 Mechanical Ventilator 40 11/25/18 07:05 80 24 40 11/25/18 05:15 82 31 40 11/25/18 04:00 98.4 84 22 120/70 (87) 100 11/25/18 04:00 Mechanical Ventilator 11/25/18 04:00 40 11/25/18 03:45 79 11/25/18 03:24 79 30 40 11/25/18 01:21 84 28 40 11/25/18 00:00 Mechanical Ventilator 11/25/18 00:00 98.0 83 24 124/67 (86) 100 11/24/18 23:30 73 11/24/18 22:30 74 22 40 11/24/18 21:30 74 21 40 11/24/18 20:00 98.2 80 21 101/80 (87) 100 11/24/18 20:00 40 11/24/18 20:00 Mechanical Ventilator 11/24/18 19:23 Mechanical Ventilator 40 11/24/18 19:23 78 20 40 11/24/18 19:23 100 Mechanical Ventilator 40 11/24/18 19:09 78 11/24/18 17:00 80 28 40 11/24/18 16:00 78 11/24/18 16:00 98.0 75 21 91/77 (82) 100 11/24/18 16:00 Mechanical Ventilator 11/24/18 16:00 40 11/24/18 15:00 82 24 40 11/24/18 13:22 90 26 40 11/24/18 12:00 98.2 75 21 124/34 (64) 100 11/24/18 12:00 80 11/24/18 12:00 40 11/24/18 12:00 Mechanical Ventilator General Appearance: no apparent distress EENT: PERRL/EOMI, normal ENT inspection, TMs normal Neck: normal inspection, no JVD Rhythm: NSR Cardiovascular: normal peripheral pulses Respiratory/Chest: chest wall non-tender, crackles/rales Abdomen: normal bowel sounds, non tender Extremities: normal range of motion, non-tender, no calf tenderness Neurologic: boat loader 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 normal, no motor/sensory deficits Intake and Output 11/24/18 11/25/18 19:00 07:00 Intake Total 660 ml 780 ml Balance 660 ml 780 ml Intake Oral 0 ml Free Water 120 ml 175 ml IV Total 110 ml Tube Feeding 540 ml 495 ml # Bowel Movements 5 Laboratory Tests Test 11/25/18 03:30 White Blood Count 10.8 K/UL (4.8-10.8) Red Blood Count 4.88 M/UL (4.70-6.10) Hemoglobin 12.2 G/DL (14.2-18.0) L Hematocrit 39.5 % (42.0-52.0) L Mean Corpuscular Volume 81 FL (80-99) Mean Corpuscular Hemoglobin 24.9 PG (27.0-31.0) L Mean Corpuscular Hemoglobin Concent 30.8 G/DL (32.0-36.0) L Red Cell Distribution Width 17.2 % (11.6-14.8) H Platelet Count 169 K/UL (150-450) Mean Platelet Volume 8.6 FL (6.5-10.1) Neutrophils (%) (Auto) 81.5 % (45.0-75.0) H Lymphocytes (%) (Auto) 10.7 % (20.0-45.0) L Monocytes (%) (Auto) 7.0 % (1.0-10.0) Eosinophils (%) (Auto) 0.0 % (0.0-3.0) Basophils (%) (Auto) 0.8 % (0.0-2.0) Sodium Level 132 MMOL/L (136-145) L Potassium Level 4.8 MMOL/L (3.5-5.1) Chloride Level 95 MMOL/L (98-107) L Carbon Dioxide Level 29 MMOL/L (21-32) Anion Gap 8 mmol/L (5-15) Blood Urea Nitrogen 73 mg/dL (7-18) H Creatinine 7.7 MG/DL (0.55-1.30) H Estimat Glomerular Filtration Rate 7.1 mL/min (>60) Glucose Level 160 MG/DL (74-106) H Calcium Level 8.5 MG/DL (8.5-10.1) Phosphorus Level 3.8 MG/DL (2.5-4.9) Magnesium Level 2.3 MG/DL (1.8-2.4) Total Bilirubin 0.3 MG/DL (0.2-1.0) Aspartate Amino Transf (AST/SGOT) 15 U/L (15-37) Alanine Aminotransferase (ALT/SGPT) 11 U/L (12-78) L Alkaline Phosphatase 92 U/L (46-116) C-Reactive Protein, Quantitative 7.3 mg/dL (0.00-0.90) H Pro-B-Type Natriuretic Peptide > 89654 pg/mL (0-125) H Total Protein 6.4 G/DL (6.4-8.2) Albumin 2.1 G/DL (3.4-5.0) L Globulin 4.3 g/dL Albumin/Globulin Ratio 0.5 (1.0-2.7) L Dhruv Jin MD Nov 25, 2018 11:21
[2018-11-25 12:00] VITALS: BP 119/70
[2018-11-25] MEDS: LORazepam 1mg tab GT PRN (13:41)
--- NOTE | 2018-11-25 15:43 | Nephrology Progress Note ---
Assessment/Plan Problem List: (1) ESRD (end stage renal disease) on dialysis (2) Foot ulcer (3) CHF (congestive heart failure) (4) Pacemaker (5) Acute respiratory failure Assessment: with Co2 retention Assessment ESRD with high K and SOB on admit Foot ulcer, likely infected High Troponin likely NSTMI Pacer , Pleural effusion s/p CABGS s/p Liver transplant Plan Now has tracheostomy and PEG Adjust BP meds HD next Antibiotics by ID start tube feeding / hasPEG per cardio and ID Podiatry and Vascular surgical fu ? DC planning? Subjective ROS Limited/Unobtainable: No Interval Events/Complaints also medicine coverage for dr jesus Objective Objective Last 24 Hour Vital Signs Date Time Temp Pulse Resp B/P (MAP) Pulse Ox O2 Delivery O2 Flow Rate FiO2 11/25/18 14:53 83 22 40 11/25/18 13:06 77 29 40 11/25/18 11:08 81 25 40 11/25/18 08:55 78 26 40 11/25/18 08:27 80 120/70 11/25/18 08:00 85 11/25/18 08:00 40 11/25/18 08:00 Mechanical Ventilator 11/25/18 08:00 98.2 85 22 135/72 (93) 100 11/25/18 07:32 Mechanical Ventilator 40 11/25/18 07:32 100 Mechanical Ventilator 40 11/25/18 07:05 80 24 40 11/25/18 05:15 82 31 40 11/25/18 04:00 98.4 84 22 120/70 (87) 100 11/25/18 04:00 Mechanical Ventilator 11/25/18 04:00 40 11/25/18 03:45 79 11/25/18 03:24 79 30 40 11/25/18 01:21 84 28 40 11/25/18 00:00 Mechanical Ventilator 11/25/18 00:00 98.0 83 24 124/67 (86) 100 11/24/18 23:30 73 11/24/18 22:30 74 22 40 11/24/18 21:30 74 21 40 11/24/18 20:00 98.2 80 21 101/80 (87) 100 11/24/18 20:00 40 11/24/18 20:00 Mechanical Ventilator 11/24/18 19:23 Mechanical Ventilator 40 11/24/18 19:23 78 20 40 11/24/18 19:23 100 Mechanical Ventilator 40 11/24/18 19:09 78 11/24/18 17:00 80 28 40 11/24/18 16:00 78 11/24/18 16:00 98.0 75 21 91/77 (82) 100 11/24/18 16:00 Mechanical Ventilator 11/24/18 16:00 40 Intake and Output 11/24/18 11/25/18 19:00 07:00 Intake Total 660 ml 780 ml Balance 660 ml 780 ml Intake Oral 0 ml Free Water 120 ml 175 ml IV Total 110 ml Tube Feeding 540 ml 495 ml # Bowel Movements 5 Laboratory Tests 11/25/18 03:30: White Blood Count 10.8, Red Blood Count 4.88, Hemoglobin 12.2L, Hematocrit 39.5L , Mean Corpuscular Volume 81, Mean Corpuscular Hemoglobin 24.9L, Mean Corpuscular Hemoglobin Concent 30.8L, Red Cell Distribution Width 17.2H, Platelet Count 169, Mean Platelet Volume 8.6, Neutrophils (%) (Auto) 81.5H, Lymphocytes (%) (Auto) 10.7L, Monocytes (%) (Auto) 7.0, Eosinophils (%) (Auto) 0.0, Basophils (%) (Auto) 0.8, Sodium Level 132L, Potassium Level 4.8, Chloride Level 95L, Carbon Dioxide Level 29, Anion Gap 8, Blood Urea Nitrogen 73H, Creatinine 7.7H, Estimat Glomerular Filtration Rate 7.1, Glucose Level 160H, Calcium Level 8.5, Phosphorus Level 3.8, Magnesium Level 2.3, Total Bilirubin 0.3, Aspartate Amino Transf (AST/SGOT) 15, Alanine Aminotransferase (ALT/SGPT) 11L, Alkaline Phosphatase 92, C-Reactive Protein, Quantitative 7.3H, Pro-B-Type Natriuretic Peptide > 96015F, Total Protein 6.4, Albumin 2.1L, Globulin 4.3, Albumin/Globulin Ratio 0.5L Height (Feet): 5 Height (Inches): 5.00 Weight (Pounds): 201 General Appearance: no apparent distress Objective no other change Nakul Stevens MD Nov 25, 2018 15:43
[2018-11-25 16:00] VITALS: BP 129/66
--- NOTE | 2018-11-25 17:37 | Infectious Diseases Prog Note ---
Assessment/Plan Problems: (1) Fever Assessment & Plan: with mild leukocytosis, resolved , suspect due to massive recurrent right side pleural effusion with possible pneumonia , S/P repeated thoracentesis with removal of 1.5 liter of fluids , S/P vancomycin and aztreonam empirically for 8 days , monitor off antibiotics . (2) Thrush, oral Assessment & Plan: continue local nystatin , and iv micafungin to treat him since fluconazole has many interaction with his transplants meds . may need to rule out esophageal sergio since immunocompromised (3) HCV antibody positive Assessment & Plan: no evidence of active infection, with undetectable viral load , suspect due to previous infection , cleared, S/P liver transplant . (4) Foot ulcer Assessment & Plan: in diabetic patient , with MRSA , S/P vancomycin treatment with HD for two weeks , pending vascular eval and possible surgical debridement. bone scan ruled out osteomyelitis of the heel . 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 now improving, pulmonary is following (9) Pleural effusion Assessment & Plan: recurrent on the right, with lung collapse , S/P thoracentesis X2 with removal of 1.5 cc of clear fluids. PREVIOUS culture were negative with negative cytology Subjective Constitutional: Reports: no symptoms HEENT: Reports: no symptoms Respiratory: Reports: no symptoms Breasts: Reports: no symptoms Cardiovascular: Reports: no symptoms Gastrointestinal/Abdominal: Reports: no symptoms Genitourinary: Reports: no symptoms Neurologic: Reports: no symptoms Psychiatric: Reports: no symptoms Skin: Reports: no symptoms Endocrine: Reports: no symptoms Hematologic: Reports: no symptoms Musculoskeletal: Reports: no symptoms Allergies: Coded Allergies: CEPHALEXIN (Unverified Allergy, Unknown, 02/24/14) SULFAMETHOXAZOLE (Unverified Allergy, Unknown, 02/24/14) TRIMETHOPRIM (Unverified Allergy, Unknown, 02/24/14) Subjective he was ok comfortable, has less facial swelling and tongue swelling , awake and responsive, no fever or chills, no significant secretions , no SOB . has less thrush on his tongue Objective Vital Signs Last 24 Hour Vital Signs Date Time Temp Pulse Resp B/P (MAP) Pulse Ox O2 Delivery O2 Flow Rate FiO2 11/25/18 16:00 40 11/25/18 16:00 98.4 82 22 129/66 (87) 100 11/25/18 16:00 82 11/25/18 16:00 Mechanical Ventilator 11/25/18 14:53 83 22 40 11/25/18 13:06 77 29 40 11/25/18 12:00 40 11/25/18 12:00 79 11/25/18 12:00 Mechanical Ventilator 11/25/18 12:00 98.2 80 22 119/70 (86) 100 11/25/18 11:08 81 25 40 11/25/18 08:55 78 26 40 11/25/18 08:27 80 120/70 11/25/18 08:00 85 11/25/18 08:00 40 11/25/18 08:00 Mechanical Ventilator 11/25/18 08:00 98.2 85 22 135/72 (93) 100 11/25/18 07:32 Mechanical Ventilator 40 11/25/18 07:32 100 Mechanical Ventilator 40 11/25/18 07:05 80 24 40 11/25/18 05:15 82 31 40 11/25/18 04:00 98.4 84 22 120/70 (87) 100 11/25/18 04:00 Mechanical Ventilator 11/25/18 04:00 40 11/25/18 03:45 79 11/25/18 03:24 79 30 40 11/25/18 01:21 84 28 40 11/25/18 00:00 Mechanical Ventilator 11/25/18 00:00 98.0 83 24 124/67 (86) 100 11/24/18 23:30 73 11/24/18 22:30 74 22 40 11/24/18 21:30 74 21 40 11/24/18 20:00 98.2 80 21 101/80 (87) 100 11/24/18 20:00 40 11/24/18 20:00 Mechanical Ventilator 11/24/18 19:23 Mechanical Ventilator 40 11/24/18 19:23 78 20 40 11/24/18 19:23 100 Mechanical Ventilator 40 11/24/18 19:09 78 Height (Feet): 5 Height (Inches): 5.00 Weight (Pounds): 201 General Appearance: WD/WN, no acute distress HEENT: normocephalic, atraumatic, anicteric, mucous membranes moist, supple, no JVD, status post trach, thrush Respiratory/Chest: chest wall non-tender, lungs clear, normal breath sounds, no respiratory distress, no accessory muscle use Cardiovascular: normal peripheral pulses, normal rate, regular rhythm, regularly irregular, no gallop/murmur, no JVD Abdomen: normal bowel sounds, soft, non tender, no organomegaly, non distended , no mass, no scars Extremities: no cyanosis, no clubbing Skin: no rash, no lesions, no ulcers 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, alert, responsive Lymphatic: no neck adenopathy, no groin adenopathy Musculoskeletal: normal muscle bulk, no effusion Laboratory Tests Test 11/25/18 03:30 White Blood Count 10.8 K/UL (4.8-10.8) Red Blood Count 4.88 M/UL (4.70-6.10) Hemoglobin 12.2 G/DL (14.2-18.0) L Hematocrit 39.5 % (42.0-52.0) L Mean Corpuscular Volume 81 FL (80-99) Mean Corpuscular Hemoglobin 24.9 PG (27.0-31.0) L Mean Corpuscular Hemoglobin Concent 30.8 G/DL (32.0-36.0) L Red Cell Distribution Width 17.2 % (11.6-14.8) H Platelet Count 169 K/UL (150-450) Mean Platelet Volume 8.6 FL (6.5-10.1) Neutrophils (%) (Auto) 81.5 % (45.0-75.0) H Lymphocytes (%) (Auto) 10.7 % (20.0-45.0) L Monocytes (%) (Auto) 7.0 % (1.0-10.0) Eosinophils (%) (Auto) 0.0 % (0.0-3.0) Basophils (%) (Auto) 0.8 % (0.0-2.0) Sodium Level 132 MMOL/L (136-145) L Potassium Level 4.8 MMOL/L (3.5-5.1) Chloride Level 95 MMOL/L (98-107) L Carbon Dioxide Level 29 MMOL/L (21-32) Anion Gap 8 mmol/L (5-15) Blood Urea Nitrogen 73 mg/dL (7-18) H Creatinine 7.7 MG/DL (0.55-1.30) H Estimat Glomerular Filtration Rate 7.1 mL/min (>60) Glucose Level 160 MG/DL (74-106) H Calcium Level 8.5 MG/DL (8.5-10.1) Phosphorus Level 3.8 MG/DL (2.5-4.9) Magnesium Level 2.3 MG/DL (1.8-2.4) Total Bilirubin 0.3 MG/DL (0.2-1.0) Aspartate Amino Transf (AST/SGOT) 15 U/L (15-37) Alanine Aminotransferase (ALT/SGPT) 11 U/L (12-78) L Alkaline Phosphatase 92 U/L (46-116) C-Reactive Protein, Quantitative 7.3 mg/dL (0.00-0.90) H Pro-B-Type Natriuretic Peptide > 93456 pg/mL (0-125) H Total Protein 6.4 G/DL (6.4-8.2) Albumin 2.1 G/DL (3.4-5.0) L Globulin 4.3 g/dL Albumin/Globulin Ratio 0.5 (1.0-2.7) L Current Medications Medications (Trade) Dose Ordered Sig/Aleks Route PRN Reason Start Time Stop Time Status Last Admin Dose Admin Acetaminophen (Tylenol) 650 mg Q4H PRN NG Mild Pain/Temp > 100.5 11/12/18 19:00 12/12/18 18:47 11/24/18 13:34 Amlodipine Besylate (Norvasc) 2.5 mg DAILY GT 11/22/18 09:00 12/22/18 08:59 11/25/18 08:27 Aspirin (ASA) 81 mg DAILY GT 11/20/18 09:00 12/20/18 08:59 11/25/18 08:27 Atorvastatin Calcium (Lipitor) 10 mg BEDTIME NG 11/12/18 21:00 12/02/18 20:59 11/24/18 20:23 Chlorhexidine Gluconate (Glo-Hex 2%) 1 applic DAILY@1999 TOPIC 11/11/18 20:00 12/08/18 19:59 11/24/18 20:23 Collagenase (Santyl) 1 applic DAILY@2099 TOPIC 11/14/18 21:00 12/14/18 20:59 11/24/18 20:23 Dextrose (Dextrose 50%) 25 ml Q30M PRN IV Hypoglycemia 11/11/18 14:45 11/30/18 22:44 Dextrose (Dextrose 50%) 50 ml Q30M PRN IV Hypoglycemia 11/11/18 14:45 11/30/18 22:44 Docusate Sodium (Colace) 100 mg EVERY 8 HOURS PRN GT constipation 11/24/18 18:51 12/20/18 18:50 Hydralazine HCl (Apresoline) 10 mg Q6H PRN IV For High Blood Pressure 11/11/18 14:39 12/11/18 14:38 Insulin Aspart (NovoLOG) EVERY 6 HOURS SUBQ 11/12/18 12:00 12/01/18 06:29 11/25/18 05:13 Lactulose (Cephulac) 20 gm THREE TIMES A DAY PRN GT Constipation 11/24/18 18:51 12/23/18 18:50 Lansoprazole (Prevacid) 30 mg BID GT 11/20/18 09:00 12/20/18 08:59 11/25/18 08:27 Lorazepam (Ativan) 1 mg EVERY 6 HOURS PRN GT For Anxiety 11/20/18 22:00 11/27/18 21:59 11/25/18 13:41 Micafungin Sodium 100 mg/Sodium Chloride 110 ml @ 110 mls/hr Q24H IVPB 11/13/18 18:00 11/27/18 17:59 11/24/18 17:34 Nicotine (Nicoderm) 1 patch Q24H TDERMAL 11/11/18 22:15 12/01/18 22:14 11/24/18 21:28 Olanzapine (ZyPREXA) 2.5 mg BEDTIME NG 11/13/18 21:00 12/13/18 20:59 11/24/18 20:23 Olanzapine (ZyPREXA) 2.5 mg Q6H PRN ORAL agitation 11/15/18 23:00 12/15/18 22:59 Polyethylene Glycol (Miralax) 17 gm BEDTIME ORAL 11/23/18 21:00 12/23/18 20:59 11/23/18 20:14 Polyethylene Glycol (Miralax) 17 gm DAILYPRN PRN NG Constipation 11/12/18 19:00 12/11/18 15:29 11/13/18 05:30 Sevelamer Carbonate (Renvela) 800 mg Q8HR GT 11/20/18 14:00 12/20/18 13:59 11/25/18 13:41 Tacrolimus (Prograf) 2 mg MoWeFr@0000,1200 ORAL 11/13/18 00:00 12/02/18 00:00 11/25/18 13:41 Tacrolimus (Prograf) 2 mg SuTuThSa@0900,2100 ORAL 11/17/18 21:00 12/17/18 20:59 11/24/18 20:30 Francois Landis M.D. Nov 25, 2018 17:37
[2018-11-25] MEDS: Micafungin 100 MG in NS 110 ML IVPB SCH (18:27)
[2018-11-25 20:00] VITALS: BP 105/63
[2018-11-25] MEDS: Dyna-Hex 2% Top Sol 2oz TOPIC SCH (20:18)
[2018-11-25] MEDS: OLANZapine 2.5mg tab NG SCH (20:19)
[2018-11-25] MEDS: Miralax 17gm pkt ORAL SCH (20:19)
--- NOTE | 2018-11-25 22:34 | General Progress Note ---
Assessment/Plan Problem List: (1) Encephalopathy acute ICD Codes: G93.40 - Encephalopathy, unspecified SNOMED: 31284148, 687629034 Assessment/Plan Zyprexa 2.5mg po qhs haldol IM prn the pt lacks capacity ativan 1mg gt prior to weaning off from vent Subjective 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: Reports: anxiety Allergies: Coded Allergies: CEPHALEXIN (Unverified Allergy, Unknown, 02/24/14) SULFAMETHOXAZOLE (Unverified Allergy, Unknown, 02/24/14) TRIMETHOPRIM (Unverified Allergy, Unknown, 02/24/14) Subjective the pt was disoriented non verbal the pt is the same no changes uncooperative with weaning process Objective Last 24 Hour Vital Signs Date Time Temp Pulse Resp B/P (MAP) Pulse Ox O2 Delivery O2 Flow Rate FiO2 11/25/18 20:00 Mechanical Ventilator 11/25/18 20:00 40 11/25/18 20:00 98.1 80 20 105/63 (77) 99 11/25/18 19:32 81 11/25/18 19:03 Mechanical Ventilator 40 11/25/18 19:03 79 26 40 11/25/18 19:03 98 Mechanical Ventilator 40 11/25/18 17:15 81 26 40 11/25/18 16:00 40 11/25/18 16:00 98.4 82 22 129/66 (87) 100 11/25/18 16:00 82 11/25/18 16:00 Mechanical Ventilator 11/25/18 14:53 83 22 40 11/25/18 13:06 77 29 40 11/25/18 12:00 40 11/25/18 12:00 79 11/25/18 12:00 Mechanical Ventilator 11/25/18 12:00 98.2 80 22 119/70 (86) 100 11/25/18 11:08 81 25 40 11/25/18 08:55 78 26 40 11/25/18 08:27 80 120/70 11/25/18 08:00 85 11/25/18 08:00 40 11/25/18 08:00 Mechanical Ventilator 11/25/18 08:00 98.2 85 22 135/72 (93) 100 11/25/18 07:32 Mechanical Ventilator 40 11/25/18 07:32 100 Mechanical Ventilator 40 11/25/18 07:05 80 24 40 11/25/18 05:15 82 31 40 11/25/18 04:00 98.4 84 22 120/70 (87) 100 11/25/18 04:00 Mechanical Ventilator 11/25/18 04:00 40 11/25/18 03:45 79 11/25/18 03:24 79 30 40 11/25/18 01:21 84 28 40 11/25/18 00:00 Mechanical Ventilator 11/25/18 00:00 98.0 83 24 124/67 (86) 100 11/24/18 23:30 73 Intake and Output 11/24/18 11/25/18 19:00 07:00 Intake Total 660 ml 780 ml Balance 660 ml 780 ml Intake Oral 0 ml Free Water 120 ml 175 ml IV Total 110 ml Tube Feeding 540 ml 495 ml # Bowel Movements 5 Laboratory Tests 11/25/18 03:30: White Blood Count 10.8, Red Blood Count 4.88, Hemoglobin 12.2L, Hematocrit 39.5L , Mean Corpuscular Volume 81, Mean Corpuscular Hemoglobin 24.9L, Mean Corpuscular Hemoglobin Concent 30.8L, Red Cell Distribution Width 17.2H, Platelet Count 169, Mean Platelet Volume 8.6, Neutrophils (%) (Auto) 81.5H, Lymphocytes (%) (Auto) 10.7L, Monocytes (%) (Auto) 7.0, Eosinophils (%) (Auto) 0.0, Basophils (%) (Auto) 0.8, Sodium Level 132L, Potassium Level 4.8, Chloride Level 95L, Carbon Dioxide Level 29, Anion Gap 8, Blood Urea Nitrogen 73H, Creatinine 7.7H, Estimat Glomerular Filtration Rate 7.1, Glucose Level 160H, Calcium Level 8.5, Phosphorus Level 3.8, Magnesium Level 2.3, Total Bilirubin 0.3, Aspartate Amino Transf (AST/SGOT) 15, Alanine Aminotransferase (ALT/SGPT) 11L, Alkaline Phosphatase 92, C-Reactive Protein, Quantitative 7.3H, Pro-B-Type Natriuretic Peptide > 87827P, Total Protein 6.4, Albumin 2.1L, Globulin 4.3, Albumin/Globulin Ratio 0.5L Height (Feet): 5 Height (Inches): 5.00 Weight (Pounds): 201 General Appearance: alert, confused, agitated Jeffrey Lala MD Nov 25, 2018 22:34
[2018-11-26] VITALS: BP 126/63
[2018-11-26] MEDS: NovoLOG Insulin Flexpen SUBQ SCH ×4 (00:01→18:35)
[2018-11-26] MEDS: LORazepam 1mg tab GT PRN (00:03)
[2018-11-26 04:00] VITALS: BP 142/85
[2018-11-26 05:34] LABS: BASOPHILS % (AUTO) 0.6 % (0.0-2.0); HEMATOCRIT 37.1 % (42.0-52.0); HEMOGLOBIN 11.2 G/DL (14.2-18.0); LYMPHOCYTES % (AUTO) 11.5 % (20.0-45.0); MEAN CORPUSCULAR VOLUME 82 FL (80-99); MONOCYTES % (AUTO) 6.2 % (1.0-10.0); NEUTROPHILS % (AUTO) 81.6 % (45.0-75.0); PLATELET COUNT 163 K/UL (150-450); RED BLOOD COUNT 4.52 M/UL (4.70-6.10); RED CELL DISTRIBUTION WIDTH 17.1 % (11.6-14.8); WHITE BLOOD COUNT 9.4 K/UL (4.8-10.8)
[2018-11-26] MEDS: Renvela 800mg Pkt GT SCH ×3 (05:34→21:22)
[2018-11-26 05:43] LABS: ANION GAP 7 mmol/L (5-15); BLOOD UREA NITROGEN 60 mg/dL (7-18); CALCIUM 8.7 MG/DL (8.5-10.1); CARBON DIOXIDE 30 MMOL/L (21-32); CHLORIDE 95 MMOL/L (98-107); CREATININE 6.8 MG/DL (0.55-1.30); POTASSIUM 4.6 MMOL/L (3.5-5.1); SODIUM 132 MMOL/L (136-145)
[2018-11-26 08:00] VITALS: BP 111/82
[2018-11-26] MEDS: Aspirin Baby 81mg GT SCH ×2 (09:00→09:21)
[2018-11-26 09:07] LABS: ALANINE AMINOTRANSFERASE 12 U/L (12-78); ALBUMIN 2.1 G/DL (3.4-5.0); ALKALINE PHOSPHATASE 88 U/L (46-116); ASPARTATE AMINO TRANSFERASE 15 U/L (15-37); BILIRUBIN,DIRECT < 0.1 MG/DL (0.0-0.3); BILIRUBIN,TOTAL 0.3 MG/DL (0.2-1.0)
--- NOTE | 2018-11-26 10:26 | GI Progress Note ---
Assessment/Plan Problems: (1) Foot ulcer ICD Codes: L97.509 - Non-pressure chronic ulcer of other part of unspecified foot with unspecified severity SNOMED: 07241668 Qualifiers: Qualified Codes: L97.511 - Non-pressure chronic ulcer of other part of right foot limited to breakdown of skin (2) DM (diabetes mellitus) ICD Codes: E11.9 - Type 2 diabetes mellitus without complications SNOMED: 56758236 (3) Transplant ICD Codes: Z94.9 - Transplanted organ and tissue status, unspecified SNOMED: 668867894 Status: unchanged Status Narrative Discussed with Dr. Escalera Assessment/Plan History of liver transplant, currently on Prograf constipation status post tracheostomy GTF HD per nephro supportive care cont tacrolimus prn transfusions ppi zofran prn Bowel regimen follow labs The patient was seen and examined at bedside and all new and available data was reviewed in the patients chart. I agree with the above findings, impression and plan. (Patient seen earlier today. Signature stamp does not reflect patient encounter time.). - Jorge Escalera MD Subjective Subjective Limited Objective Last 24 Hour Vital Signs Date Time Temp Pulse Resp B/P (MAP) Pulse Ox O2 Delivery O2 Flow Rate FiO2 11/26/18 09:24 80 111/82 11/26/18 08:56 80 25 40 11/26/18 08:07 Mechanical Ventilator 40 11/26/18 08:06 98 Mechanical Ventilator 40 11/26/18 06:54 83 27 40 11/26/18 05:30 86 27 40 11/26/18 04:10 81 11/26/18 04:00 Mechanical Ventilator 11/26/18 04:00 98.3 81 20 142/85 (104) 100 11/26/18 04:00 40 11/26/18 02:55 81 22 40 11/26/18 01:21 79 25 40 11/26/18 00:00 98.5 81 22 126/63 (84) 100 11/26/18 00:00 Mechanical Ventilator 11/25/18 23:27 76 11/25/18 22:40 78 21 40 11/25/18 21:15 87 22 40 11/25/18 20:00 Mechanical Ventilator 11/25/18 20:00 40 11/25/18 20:00 98.1 80 20 105/63 (77) 99 11/25/18 19:32 81 11/25/18 19:03 Mechanical Ventilator 40 11/25/18 19:03 79 26 40 11/25/18 19:03 98 Mechanical Ventilator 40 11/25/18 17:15 81 26 40 11/25/18 16:00 40 11/25/18 16:00 98.4 82 22 129/66 (87) 100 11/25/18 16:00 82 11/25/18 16:00 Mechanical Ventilator 11/25/18 14:53 83 22 40 11/25/18 13:06 77 29 40 11/25/18 12:00 40 11/25/18 12:00 79 11/25/18 12:00 Mechanical Ventilator 11/25/18 12:00 98.2 80 22 119/70 (86) 100 11/25/18 11:08 81 25 40 Intake and Output 11/25/18 11/26/18 19:00 07:00 Intake Total 585 ml 695 ml Balance 585 ml 695 ml Free Water 200 ml Tube Feeding 585 ml 495 ml Laboratory Tests Test 11/26/18 04:00 White Blood Count 9.4 K/UL (4.8-10.8) Red Blood Count 4.52 M/UL (4.70-6.10) L Hemoglobin 11.2 G/DL (14.2-18.0) L Hematocrit 37.1 % (42.0-52.0) L Mean Corpuscular Volume 82 FL (80-99) Mean Corpuscular Hemoglobin 24.9 PG (27.0-31.0) L Mean Corpuscular Hemoglobin Concent 30.2 G/DL (32.0-36.0) L Red Cell Distribution Width 17.1 % (11.6-14.8) H Platelet Count 163 K/UL (150-450) Mean Platelet Volume 8.2 FL (6.5-10.1) Neutrophils (%) (Auto) 81.6 % (45.0-75.0) H Lymphocytes (%) (Auto) 11.5 % (20.0-45.0) L Monocytes (%) (Auto) 6.2 % (1.0-10.0) Eosinophils (%) (Auto) 0.0 % (0.0-3.0) Basophils (%) (Auto) 0.6 % (0.0-2.0) Sodium Level 132 MMOL/L (136-145) L Potassium Level 4.6 MMOL/L (3.5-5.1) Chloride Level 95 MMOL/L (98-107) L Carbon Dioxide Level 30 MMOL/L (21-32) Anion Gap 7 mmol/L (5-15) Blood Urea Nitrogen 60 mg/dL (7-18) H Creatinine 6.8 MG/DL (0.55-1.30) H Estimat Glomerular Filtration Rate 8.2 mL/min (>60) Glucose Level 153 MG/DL (74-106) H Calcium Level 8.7 MG/DL (8.5-10.1) Phosphorus Level 4.0 MG/DL (2.5-4.9) Magnesium Level 2.4 MG/DL (1.8-2.4) Total Bilirubin 0.3 MG/DL (0.2-1.0) Direct Bilirubin < 0.1 MG/DL (0.0-0.3) Aspartate Amino Transf (AST/SGOT) 15 U/L (15-37) Alanine Aminotransferase (ALT/SGPT) 12 U/L (12-78) Alkaline Phosphatase 88 U/L (46-116) Total Protein 6.5 G/DL (6.4-8.2) Albumin 2.1 G/DL (3.4-5.0) L Height (Feet): 5 Height (Inches): 5.00 Weight (Pounds): 206 General Appearance: WD/WN, no apparent distress, alert Cardiovascular: normal rate Respiratory/Chest: normal breath sounds, no respiratory distress, other - Tracheostomy Abdominal Exam: normal bowel sounds, non tender, soft, GT site - Clean dry and intact Extremities: non-tender Kelvin Briggs KIER PLEATER Nov 26, 2018 10:26
[2018-11-26] MEDS: traMADol 50mg tab GT PRN ×2 (11:44→20:27)
[2018-11-26 12:00] VITALS: BP_SYST 132; BP_SYST 162; BP_DIAS 105
--- NOTE | 2018-11-26 15:26 | Cardiology Progress Note ---
Assessment/Plan Status: stable Assessment/Plan Assessment/Plan Assessment/Plan 1. Troponin leak with no chest pain. Hx of CABG. Due to renal failure. On Coreg 6.25 mg bid, aspirin and Lipitor 2. S/P CABG - outpatient stress test 3. Nonsustained ventricular tachycardia. Hx of old VA and CABG. EF 55%. No Syncope, monitor electrolytes 4. Congestive heart failure. On hemodialysis 5. End-stage renal disease, on hemodialysis per Dr. Stevens 6. Status post right sided Medtronic dual chamber pacemaker with Nl Fx. 7. Right foot ulcer. Antibiotic per Dr. Landis. FU by Dr. Huizar 8. History of liver transplant on Prograf 9. Respiratory failure, ? etiology anaphylaxis. S/P Emergency tracheostomy. Weaned off the vent on T Piece 10. Pleural effusion. FU Dr. Mendoza 11. Dysphagia, S/P PEG Dispo planning Jacqueline when approved Subjective Cardiovascular: Reports: no symptoms Respiratory: Reports: no symptoms Gastrointestinal/Abdominal: Reports: no symptoms Genitourinary: Reports: no symptoms Subjective [facility] [facility] Awaiting placement, referral faxed Objective Last 24 Hour Vital Signs Date Time Temp Pulse Resp B/P (MAP) Pulse Ox O2 Delivery O2 Flow Rate FiO2 11/26/18 14:50 65 22 30 11/26/18 13:01 82 22 40 11/26/18 12:00 Mechanical Ventilator 11/26/18 12:00 97.5 80 21 162/105 (124) 100 11/26/18 12:00 79 11/26/18 12:00 40 11/26/18 10:55 77 23 40 11/26/18 09:24 80 111/82 11/26/18 08:56 80 25 40 11/26/18 08:07 Mechanical Ventilator 40 11/26/18 08:06 98 Mechanical Ventilator 40 11/26/18 08:00 Mechanical Ventilator 11/26/18 08:00 40 11/26/18 08:00 81 11/26/18 08:00 97.7 78 25 111/82 (92) 100 11/26/18 06:54 83 27 40 11/26/18 05:30 86 27 40 11/26/18 04:10 81 11/26/18 04:00 Mechanical Ventilator 11/26/18 04:00 98.3 81 20 142/85 (104) 100 11/26/18 04:00 40 11/26/18 02:55 81 22 40 11/26/18 01:21 79 25 40 11/26/18 00:00 98.5 81 22 126/63 (84) 100 11/26/18 00:00 Mechanical Ventilator 11/25/18 23:27 76 11/25/18 22:40 78 21 40 11/25/18 21:15 87 22 40 11/25/18 20:00 Mechanical Ventilator 11/25/18 20:00 40 11/25/18 20:00 98.1 80 20 105/63 (77) 99 11/25/18 19:32 81 11/25/18 19:03 Mechanical Ventilator 40 11/25/18 19:03 79 26 40 11/25/18 19:03 98 Mechanical Ventilator 40 11/25/18 17:15 81 26 40 11/25/18 16:00 40 11/25/18 16:00 98.4 82 22 129/66 (87) 100 11/25/18 16:00 82 11/25/18 16:00 Mechanical Ventilator General Appearance: no apparent distress, alert EENT: PERRL/EOMI, normal ENT inspection, TMs normal, pharynx normal Neck: non-tender, normal alignment, supple, normal inspection, no JVD Rhythm: NSR Cardiovascular: normal peripheral pulses, normal rate, regular rhythm Respiratory/Chest: chest wall non-tender, lungs clear, normal breath sounds Abdomen: normal bowel sounds, non tender, soft, no organomegaly, no mass Extremities: normal range of motion, non-tender, normal inspection, no calf tenderness, no swelling 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, no motor/sensory deficits Intake and Output 11/25/18 11/26/18 19:00 07:00 Intake Total 585 ml 695 ml Balance 585 ml 695 ml Free Water 200 ml Tube Feeding 585 ml 495 ml Laboratory Tests Test 11/26/18 04:00 White Blood Count 9.4 K/UL (4.8-10.8) Red Blood Count 4.52 M/UL (4.70-6.10) L Hemoglobin 11.2 G/DL (14.2-18.0) L Hematocrit 37.1 % (42.0-52.0) L Mean Corpuscular Volume 82 FL (80-99) Mean Corpuscular Hemoglobin 24.9 PG (27.0-31.0) L Mean Corpuscular Hemoglobin Concent 30.2 G/DL (32.0-36.0) L Red Cell Distribution Width 17.1 % (11.6-14.8) H Platelet Count 163 K/UL (150-450) Mean Platelet Volume 8.2 FL (6.5-10.1) Neutrophils (%) (Auto) 81.6 % (45.0-75.0) H Lymphocytes (%) (Auto) 11.5 % (20.0-45.0) L Monocytes (%) (Auto) 6.2 % (1.0-10.0) Eosinophils (%) (Auto) 0.0 % (0.0-3.0) Basophils (%) (Auto) 0.6 % (0.0-2.0) Sodium Level 132 MMOL/L (136-145) L Potassium Level 4.6 MMOL/L (3.5-5.1) Chloride Level 95 MMOL/L (98-107) L Carbon Dioxide Level 30 MMOL/L (21-32) Anion Gap 7 mmol/L (5-15) Blood Urea Nitrogen 60 mg/dL (7-18) H Creatinine 6.8 MG/DL (0.55-1.30) H Estimat Glomerular Filtration Rate 8.2 mL/min (>60) Glucose Level 153 MG/DL (74-106) H Calcium Level 8.7 MG/DL (8.5-10.1) Phosphorus Level 4.0 MG/DL (2.5-4.9) Magnesium Level 2.4 MG/DL (1.8-2.4) Total Bilirubin 0.3 MG/DL (0.2-1.0) Direct Bilirubin < 0.1 MG/DL (0.0-0.3) Aspartate Amino Transf (AST/SGOT) 15 U/L (15-37) Alanine Aminotransferase (ALT/SGPT) 12 U/L (12-78) Alkaline Phosphatase 88 U/L (46-116) Total Protein 6.5 G/DL (6.4-8.2) Albumin 2.1 G/DL (3.4-5.0) L Dhruv Jin MD Nov 26, 2018 15:26
--- NOTE | 2018-11-26 15:59 | Pulmonology Progress Note ---
Assessment/Plan Assessment/Plan 1. Resp failure, hypercapneic 2. End-stage renal disease, on dialysis, status post multiple upper extremity vascular procedures. 3. Coronary artery bypass surgery. 4. Diabetes. 5. Dysphonia, tongue swelling; s/p trach PLAN: not tolerating weaning tolerates feeds disc w RN continues to be ready for LTAC Subjective ROS Limited/Unobtainable: Yes Allergies: Coded Allergies: CEPHALEXIN (Unverified Allergy, Unknown, 02/24/14) SULFAMETHOXAZOLE (Unverified Allergy, Unknown, 02/24/14) TRIMETHOPRIM (Unverified Allergy, Unknown, 02/24/14) Objective Last 24 Hour Vital Signs Date Time Temp Pulse Resp B/P (MAP) Pulse Ox O2 Delivery O2 Flow Rate FiO2 11/26/18 14:50 65 22 30 11/26/18 13:01 82 22 40 11/26/18 12:00 Mechanical Ventilator 11/26/18 12:00 97.5 80 21 162/105 (124) 100 11/26/18 12:00 79 11/26/18 12:00 40 11/26/18 10:55 77 23 40 11/26/18 09:24 80 111/82 11/26/18 08:56 80 25 40 11/26/18 08:07 Mechanical Ventilator 40 11/26/18 08:06 98 Mechanical Ventilator 40 11/26/18 08:00 Mechanical Ventilator 11/26/18 08:00 40 11/26/18 08:00 81 11/26/18 08:00 97.7 78 25 111/82 (92) 100 11/26/18 06:54 83 27 40 11/26/18 05:30 86 27 40 11/26/18 04:10 81 11/26/18 04:00 Mechanical Ventilator 11/26/18 04:00 98.3 81 20 142/85 (104) 100 11/26/18 04:00 40 11/26/18 02:55 81 22 40 11/26/18 01:21 79 25 40 11/26/18 00:00 98.5 81 22 126/63 (84) 100 11/26/18 00:00 Mechanical Ventilator 11/25/18 23:27 76 11/25/18 22:40 78 21 40 11/25/18 21:15 87 22 40 11/25/18 20:00 Mechanical Ventilator 11/25/18 20:00 40 11/25/18 20:00 98.1 80 20 105/63 (77) 99 11/25/18 19:32 81 11/25/18 19:03 Mechanical Ventilator 40 11/25/18 19:03 79 26 40 11/25/18 19:03 98 Mechanical Ventilator 40 11/25/18 17:15 81 26 40 11/25/18 16:00 40 11/25/18 16:00 98.4 82 22 129/66 (87) 100 11/25/18 16:00 82 11/25/18 16:00 Mechanical Ventilator Intake and Output 11/25/18 11/26/18 19:00 07:00 Intake Total 585 ml 695 ml Balance 585 ml 695 ml Free Water 200 ml Tube Feeding 585 ml 495 ml Objective trach on vent General Appearance: no acute distress HEENT: status post trach Respiratory/Chest: lungs clear Cardiovascular: normal rate Laboratory Tests 11/26/18 04:00: White Blood Count 9.4, Red Blood Count 4.52L, Hemoglobin 11.2L, Hematocrit 37.1L , Mean Corpuscular Volume 82, Mean Corpuscular Hemoglobin 24.9L, Mean Corpuscular Hemoglobin Concent 30.2L, Red Cell Distribution Width 17.1H, Platelet Count 163, Mean Platelet Volume 8.2, Neutrophils (%) (Auto) 81.6H, Lymphocytes (%) (Auto) 11.5L, Monocytes (%) (Auto) 6.2, Eosinophils (%) (Auto) 0.0, Basophils (%) (Auto) 0.6, Sodium Level 132L, Potassium Level 4.6, Chloride Level 95L, Carbon Dioxide Level 30, Anion Gap 7, Blood Urea Nitrogen 60H, Creatinine 6.8H, Estimat Glomerular Filtration Rate 8.2, Glucose Level 153H, Calcium Level 8.7, Phosphorus Level 4.0, Magnesium Level 2.4, Total Bilirubin 0.3, Direct Bilirubin < 0.1, Aspartate Amino Transf (AST/SGOT) 15, Alanine Aminotransferase (ALT/SGPT) 12, Alkaline Phosphatase 88, Total Protein 6.5, Albumin 2.1L Current Medications Medications (Trade) Dose Ordered Sig/Aleks Route PRN Reason Start Time Stop Time Status Last Admin Dose Admin Acetaminophen (Tylenol) 650 mg Q4H PRN NG Mild Pain/Temp > 100.5 3/28/19 19:00 12/12/18 18:47 11/24/18 13:34 Amlodipine Besylate (Norvasc) 2.5 mg DAILY GT 11/22/18 09:00 12/22/18 08:59 11/26/18 09:24 Aspirin (ASA) 81 mg DAILY GT 11/20/18 09:00 12/20/18 08:59 11/25/18 08:27 Atorvastatin Calcium (Lipitor) 10 mg BEDTIME NG 11/12/18 21:00 12/02/18 20:59 11/25/18 20:19 Chlorhexidine Gluconate (Glo-Hex 2%) 1 applic DAILY@1999 TOPIC 11/11/18 20:00 12/08/18 19:59 11/25/18 20:18 Collagenase (Santyl) 1 applic DAILY@2099 TOPIC 11/14/18 21:00 12/14/18 20:59 11/25/18 20:19 Dextrose (Dextrose 50%) 25 ml Q30M PRN IV Hypoglycemia 11/11/18 14:45 11/30/18 22:44 Dextrose (Dextrose 50%) 50 ml Q30M PRN IV Hypoglycemia 11/11/18 14:45 11/30/18 22:44 Docusate Sodium (Colace) 100 mg EVERY 8 HOURS PRN GT constipation 11/24/18 18:51 12/20/18 18:50 Hydralazine HCl (Apresoline) 10 mg Q6H PRN IV For High Blood Pressure 11/11/18 14:39 12/11/18 14:38 Insulin Aspart (NovoLOG) EVERY 6 HOURS SUBQ 11/12/18 12:00 12/01/18 06:29 11/26/18 11:41 Lactulose (Cephulac) 20 gm THREE TIMES A DAY PRN GT Constipation 11/24/18 18:51 12/23/18 18:50 Lansoprazole (Prevacid) 30 mg BID GT 11/20/18 09:00 12/20/18 08:59 11/26/18 09:21 Lorazepam (Ativan) 1 mg EVERY 6 HOURS PRN GT For Anxiety 11/20/18 22:00 11/27/18 21:59 11/26/18 00:03 Micafungin Sodium 100 mg/Sodium Chloride 110 ml @ 110 mls/hr Q24H IVPB 11/13/18 18:00 12/01/18 17:59 11/25/18 18:27 Nicotine (Nicoderm) 1 patch Q24H TDERMAL 11/11/18 22:15 12/01/18 22:14 11/25/18 21:28 Olanzapine (ZyPREXA) 2.5 mg BEDTIME NG 11/13/18 21:00 12/13/18 20:59 11/25/18 20:19 Olanzapine (ZyPREXA) 2.5 mg Q6H PRN ORAL agitation 11/15/18 23:00 12/15/18 22:59 Polyethylene Glycol (Miralax) 17 gm BEDTIME ORAL 11/23/18 21:00 12/23/18 20:59 11/25/18 20:19 Polyethylene Glycol (Miralax) 17 gm DAILYPRN PRN NG Constipation 11/12/18 19:00 12/11/18 15:29 11/13/18 05:30 Sevelamer Carbonate (Renvela) 800 mg Q8HR GT 11/20/18 14:00 12/20/18 13:59 11/26/18 14:28 Tacrolimus (Prograf) 2 mg MoWeFr@0000,1200 ORAL 11/13/18 00:00 12/02/18 00:00 11/25/18 13:41 Tacrolimus (Prograf) 2 mg SuTuThSa@0900,2100 ORAL 11/17/18 21:00 12/17/18 20:59 11/26/18 09:21 Tramadol HCl (Ultram) 50 mg Q6H PRN GT For Pain 11/26/18 11:30 12/03/18 11:29 11/26/18 11:44 Saroj Mendoza MD Nov 26, 2018 15:59
[2018-11-26 16:00] VITALS: BP 135/67
--- NOTE | 2018-11-26 16:15 | Nephrology Progress Note ---
Assessment/Plan Problem List: (1) ESRD (end stage renal disease) on dialysis (2) Foot ulcer (3) CHF (congestive heart failure) (4) Pacemaker (5) Acute respiratory failure Assessment: with Co2 retention Assessment ESRD with high K and SOB on admit Foot ulcer, likely infected High Troponin likely NSTMI Pacer , Pleural effusion s/p CABGS s/p Liver transplant Plan Now has tracheostomy and PEG Adjust BP meds HD next Antibiotics by ID start tube feeding / hasPEG per cardio and ID Podiatry and Vascular surgical fu PRN tramadol for pain ? DC planning? Subjective ROS Limited/Unobtainable: No Interval Events/Complaints also medicine coverage for Dr jesus Constitutional: Reports: other - pain at the site of trach Objective Objective Last 24 Hour Vital Signs Date Time Temp Pulse Resp B/P (MAP) Pulse Ox O2 Delivery O2 Flow Rate FiO2 11/26/18 14:50 65 22 30 11/26/18 13:01 82 22 40 11/26/18 12:00 Mechanical Ventilator 11/26/18 12:00 97.5 80 21 162/105 (124) 100 11/26/18 12:00 79 11/26/18 12:00 40 11/26/18 10:55 77 23 40 11/26/18 09:24 80 111/82 11/26/18 08:56 80 25 40 11/26/18 08:07 Mechanical Ventilator 40 11/26/18 08:06 98 Mechanical Ventilator 40 11/26/18 08:00 Mechanical Ventilator 11/26/18 08:00 40 11/26/18 08:00 81 11/26/18 08:00 97.7 78 25 111/82 (92) 100 11/26/18 06:54 83 27 40 11/26/18 05:30 86 27 40 11/26/18 04:10 81 11/26/18 04:00 Mechanical Ventilator 11/26/18 04:00 98.3 81 20 142/85 (104) 100 11/26/18 04:00 40 11/26/18 02:55 81 22 40 11/26/18 01:21 79 25 40 11/26/18 00:00 98.5 81 22 126/63 (84) 100 11/26/18 00:00 Mechanical Ventilator 11/25/18 23:27 76 11/25/18 22:40 78 21 40 11/25/18 21:15 87 22 40 11/25/18 20:00 Mechanical Ventilator 11/25/18 20:00 40 11/25/18 20:00 98.1 80 20 105/63 (77) 99 11/25/18 19:32 81 11/25/18 19:03 Mechanical Ventilator 40 11/25/18 19:03 79 26 40 11/25/18 19:03 98 Mechanical Ventilator 40 11/25/18 17:15 81 26 40 Intake and Output 11/25/18 11/26/18 19:00 07:00 Intake Total 585 ml 695 ml Balance 585 ml 695 ml Free Water 200 ml Tube Feeding 585 ml 495 ml Laboratory Tests 11/26/18 04:00: White Blood Count 9.4, Red Blood Count 4.52L, Hemoglobin 11.2L, Hematocrit 37.1L , Mean Corpuscular Volume 82, Mean Corpuscular Hemoglobin 24.9L, Mean Corpuscular Hemoglobin Concent 30.2L, Red Cell Distribution Width 17.1H, Platelet Count 163, Mean Platelet Volume 8.2, Neutrophils (%) (Auto) 81.6H, Lymphocytes (%) (Auto) 11.5L, Monocytes (%) (Auto) 6.2, Eosinophils (%) (Auto) 0.0, Basophils (%) (Auto) 0.6, Sodium Level 132L, Potassium Level 4.6, Chloride Level 95L, Carbon Dioxide Level 30, Anion Gap 7, Blood Urea Nitrogen 60H, Creatinine 6.8H, Estimat Glomerular Filtration Rate 8.2, Glucose Level 153H, Calcium Level 8.7, Phosphorus Level 4.0, Magnesium Level 2.4, Total Bilirubin 0.3, Direct Bilirubin < 0.1, Aspartate Amino Transf (AST/SGOT) 15, Alanine Aminotransferase (ALT/SGPT) 12, Alkaline Phosphatase 88, Total Protein 6.5, Albumin 2.1L Height (Feet): 5 Height (Inches): 5.00 Weight (Pounds): 206 General Appearance: no apparent distress EENT: pale conjunctivae - site red Cardiovascular: normal rate Respiratory/Chest: decreased breath sounds Abdomen: soft, other - PEG Objective no other change Nakul Stevens MD Nov 26, 2018 16:15
[2018-11-26] MEDS ORDERED: traMADol 50mg tab GT SCH (16:17)
--- NOTE | 2018-11-26 16:37 | Surgery Progress Note ---
Surgery Progress Note Subjective Procedure Performed 1. emergency tracheostomy 2. left femoral central venous catheter insertion 3. bronchoscopy Additional Comments called to evaluate forearm wound developed. Objective Last 24 Hour Vital Signs Date Time Temp Pulse Resp B/P (MAP) Pulse Ox O2 Delivery O2 Flow Rate FiO2 11/26/18 14:50 65 22 30 11/26/18 13:01 82 22 40 11/26/18 12:00 Mechanical Ventilator 11/26/18 12:00 97.5 80 21 162/105 (124) 100 11/26/18 12:00 79 11/26/18 12:00 40 11/26/18 10:55 77 23 40 11/26/18 09:24 80 111/82 11/26/18 08:56 80 25 40 11/26/18 08:07 Mechanical Ventilator 40 11/26/18 08:06 98 Mechanical Ventilator 40 11/26/18 08:00 Mechanical Ventilator 11/26/18 08:00 40 11/26/18 08:00 81 11/26/18 08:00 97.7 78 25 111/82 (92) 100 11/26/18 06:54 83 27 40 11/26/18 05:30 86 27 40 11/26/18 04:10 81 11/26/18 04:00 Mechanical Ventilator 11/26/18 04:00 98.3 81 20 142/85 (104) 100 11/26/18 04:00 40 11/26/18 02:55 81 22 40 11/26/18 01:21 79 25 40 11/26/18 00:00 98.5 81 22 126/63 (84) 100 11/26/18 00:00 Mechanical Ventilator 11/25/18 23:27 76 11/25/18 22:40 78 21 40 11/25/18 21:15 87 22 40 11/25/18 20:00 Mechanical Ventilator 11/25/18 20:00 40 11/25/18 20:00 98.1 80 20 105/63 (77) 99 11/25/18 19:32 81 11/25/18 19:03 Mechanical Ventilator 40 11/25/18 19:03 79 26 40 11/25/18 19:03 98 Mechanical Ventilator 40 11/25/18 17:15 81 26 40 I&O Intake and Output 11/25/18 11/26/18 19:00 07:00 Intake Total 585 ml 695 ml Balance 585 ml 695 ml Free Water 200 ml Tube Feeding 585 ml 495 ml Laboratory Tests Test 11/26/18 04:00 White Blood Count 9.4 K/UL (4.8-10.8) Red Blood Count 4.52 M/UL (4.70-6.10) L Hemoglobin 11.2 G/DL (14.2-18.0) L Hematocrit 37.1 % (42.0-52.0) L Mean Corpuscular Volume 82 FL (80-99) Mean Corpuscular Hemoglobin 24.9 PG (27.0-31.0) L Mean Corpuscular Hemoglobin Concent 30.2 G/DL (32.0-36.0) L Red Cell Distribution Width 17.1 % (11.6-14.8) H Platelet Count 163 K/UL (150-450) Mean Platelet Volume 8.2 FL (6.5-10.1) Neutrophils (%) (Auto) 81.6 % (45.0-75.0) H Lymphocytes (%) (Auto) 11.5 % (20.0-45.0) L Monocytes (%) (Auto) 6.2 % (1.0-10.0) Eosinophils (%) (Auto) 0.0 % (0.0-3.0) Basophils (%) (Auto) 0.6 % (0.0-2.0) Sodium Level 132 MMOL/L (136-145) L Potassium Level 4.6 MMOL/L (3.5-5.1) Chloride Level 95 MMOL/L (98-107) L Carbon Dioxide Level 30 MMOL/L (21-32) Anion Gap 7 mmol/L (5-15) Blood Urea Nitrogen 60 mg/dL (7-18) H Creatinine 6.8 MG/DL (0.55-1.30) H Estimat Glomerular Filtration Rate 8.2 mL/min (>60) Glucose Level 153 MG/DL (74-106) H Calcium Level 8.7 MG/DL (8.5-10.1) Phosphorus Level 4.0 MG/DL (2.5-4.9) Magnesium Level 2.4 MG/DL (1.8-2.4) Total Bilirubin 0.3 MG/DL (0.2-1.0) Direct Bilirubin < 0.1 MG/DL (0.0-0.3) Aspartate Amino Transf (AST/SGOT) 15 U/L (15-37) Alanine Aminotransferase (ALT/SGPT) 12 U/L (12-78) Alkaline Phosphatase 88 U/L (46-116) Total Protein 6.5 G/DL (6.4-8.2) Albumin 2.1 G/DL (3.4-5.0) L Plan Problems: (1) Acute respiratory failure Assessment & Plan: trach sutures removed dressings prn vent prn (2) Ground glass opacity present on imaging of lung (3) Pleural effusion (4) Hyperkalemia (5) Renal failure (6) Altered level of consciousness (7) blood culture: gram negative rods. (8) Rash and other nonspecific skin eruption (9) NSTEMI (non-ST elevated myocardial infarction) (10) ESRD (end stage renal disease) on dialysis (11) Elevated troponin (12) Foot ulcer (13) DM (diabetes mellitus) (14) CHF (congestive heart failure) (15) Pacemaker (16) Elevated troponin and foot ulcer (17) Cellulitis, abdominal wall (18) Encephalopathy acute (19) Pericardial effusion (20) Tachycardia (21) Sepsis (22) HTN (hypertension) (23) Severe tongue swelling (24) Severe tongue swelling Additional Comments Full thickness wound R forearm (L)2.9cm x (W)3.5cm.Base of wound with 50% soft necrosis ,50% slough .Erythema along edges.Slight erythema periwound. NO odor or exudate noted. etiology of wound unknown but seems to be pressure related. no hx of prior iv site on right forearm. apply skin protectant followed by foam dressing will await demarcation can be excised later no signs of infection thank you Jerman French Nov 26, 2018 16:37
--- NOTE | 2018-11-26 17:11 | Infectious Diseases Prog Note ---
Assessment/Plan Problems: (1) Thrush, oral Assessment & Plan: continue local nystatin , and iv micafungin to treat him since fluconazole has many interaction with his transplants meds . may need to rule out esophageal sergio since immunocompromised (2) HCV antibody positive Assessment & Plan: no evidence of active infection, with undetectable viral load , suspect due to previous infection , cleared, S/P liver transplant . (3) Foot ulcer Assessment & Plan: in diabetic patient , with MRSA , S/P vancomycin treatment with HD for two weeks , pending vascular eval and possible surgical debridement. bone scan ruled out osteomyelitis of the heel . 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 now improving, pulmonary is following (8) Pleural effusion Assessment & Plan: recurrent on the right, with lung collapse , S/P thoracentesis X2 with removal of 1.5 cc of clear fluids. PREVIOUS culture were negative with negative cytology Subjective Constitutional: Reports: no symptoms HEENT: Reports: no symptoms Respiratory: Reports: no symptoms Breasts: Reports: no symptoms Cardiovascular: Reports: no symptoms Gastrointestinal/Abdominal: Reports: no symptoms Genitourinary: Reports: no symptoms Neurologic: Reports: no symptoms Psychiatric: Reports: no symptoms Skin: Reports: no symptoms, other - right arm wound with scab , left heel wound Endocrine: Reports: no symptoms Hematologic: Reports: no symptoms Musculoskeletal: Reports: no symptoms Allergies: Coded Allergies: CEPHALEXIN (Unverified Allergy, Unknown, 02/24/14) SULFAMETHOXAZOLE (Unverified Allergy, Unknown, 02/24/14) TRIMETHOPRIM (Unverified Allergy, Unknown, 02/24/14) Subjective he was ok comfortable, has less facial swelling and tongue swelling , awake and responsive, no fever or chills, no significant secretions , no SOB . has less thrush on his tongue Objective Vital Signs Last 24 Hour Vital Signs Date Time Temp Pulse Resp B/P (MAP) Pulse Ox O2 Delivery O2 Flow Rate FiO2 11/26/18 16:47 73 25 30 11/26/18 14:50 65 22 30 11/26/18 13:01 82 22 40 11/26/18 12:00 Mechanical Ventilator 11/26/18 12:00 97.5 80 21 162/105 (124) 100 11/26/18 12:00 79 11/26/18 12:00 40 11/26/18 10:55 77 23 40 11/26/18 09:24 80 111/82 11/26/18 08:56 80 25 40 11/26/18 08:07 Mechanical Ventilator 40 11/26/18 08:06 98 Mechanical Ventilator 40 11/26/18 08:00 Mechanical Ventilator 11/26/18 08:00 40 11/26/18 08:00 81 11/26/18 08:00 97.7 78 25 111/82 (92) 100 11/26/18 06:54 83 27 40 11/26/18 05:30 86 27 40 11/26/18 04:10 81 11/26/18 04:00 Mechanical Ventilator 11/26/18 04:00 98.3 81 20 142/85 (104) 100 11/26/18 04:00 40 11/26/18 02:55 81 22 40 11/26/18 01:21 79 25 40 11/26/18 00:00 98.5 81 22 126/63 (84) 100 11/26/18 00:00 Mechanical Ventilator 11/25/18 23:27 76 11/25/18 22:40 78 21 40 11/25/18 21:15 87 22 40 11/25/18 20:00 Mechanical Ventilator 11/25/18 20:00 40 11/25/18 20:00 98.1 80 20 105/63 (77) 99 11/25/18 19:32 81 11/25/18 19:03 Mechanical Ventilator 40 11/25/18 19:03 79 26 40 11/25/18 19:03 98 Mechanical Ventilator 40 11/25/18 17:15 81 26 40 Height (Feet): 5 Height (Inches): 5.00 Weight (Pounds): 206 General Appearance: WD/WN, no acute distress HEENT: normocephalic, atraumatic, anicteric, mucous membranes moist, PERRL, EOMI, pharynx normal, supple, no JVD, status post trach Respiratory/Chest: chest wall non-tender, lungs clear, normal breath sounds, no respiratory distress, no accessory muscle use Cardiovascular: normal peripheral pulses, normal rate, regular rhythm, no gallop/murmur, no JVD Abdomen: normal bowel sounds, soft, non tender, no organomegaly, non distended , no mass, no scars Extremities: no cyanosis, no clubbing Skin: no rash, no lesions, no ulcers 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: alert, oriented x 3, responsive Lymphatic: no neck adenopathy, no groin adenopathy Musculoskeletal: normal muscle bulk, no effusion Laboratory Tests Test 11/26/18 04:00 White Blood Count 9.4 K/UL (4.8-10.8) Red Blood Count 4.52 M/UL (4.70-6.10) L Hemoglobin 11.2 G/DL (14.2-18.0) L Hematocrit 37.1 % (42.0-52.0) L Mean Corpuscular Volume 82 FL (80-99) Mean Corpuscular Hemoglobin 24.9 PG (27.0-31.0) L Mean Corpuscular Hemoglobin Concent 30.2 G/DL (32.0-36.0) L Red Cell Distribution Width 17.1 % (11.6-14.8) H Platelet Count 163 K/UL (150-450) Mean Platelet Volume 8.2 FL (6.5-10.1) Neutrophils (%) (Auto) 81.6 % (45.0-75.0) H Lymphocytes (%) (Auto) 11.5 % (20.0-45.0) L Monocytes (%) (Auto) 6.2 % (1.0-10.0) Eosinophils (%) (Auto) 0.0 % (0.0-3.0) Basophils (%) (Auto) 0.6 % (0.0-2.0) Sodium Level 132 MMOL/L (136-145) L Potassium Level 4.6 MMOL/L (3.5-5.1) Chloride Level 95 MMOL/L (98-107) L Carbon Dioxide Level 30 MMOL/L (21-32) Anion Gap 7 mmol/L (5-15) Blood Urea Nitrogen 60 mg/dL (7-18) H Creatinine 6.8 MG/DL (0.55-1.30) H Estimat Glomerular Filtration Rate 8.2 mL/min (>60) Glucose Level 153 MG/DL (74-106) H Calcium Level 8.7 MG/DL (8.5-10.1) Phosphorus Level 4.0 MG/DL (2.5-4.9) Magnesium Level 2.4 MG/DL (1.8-2.4) Total Bilirubin 0.3 MG/DL (0.2-1.0) Direct Bilirubin < 0.1 MG/DL (0.0-0.3) Aspartate Amino Transf (AST/SGOT) 15 U/L (15-37) Alanine Aminotransferase (ALT/SGPT) 12 U/L (12-78) Alkaline Phosphatase 88 U/L (46-116) Total Protein 6.5 G/DL (6.4-8.2) Albumin 2.1 G/DL (3.4-5.0) L Current Medications Medications (Trade) Dose Ordered Sig/Aleks Route PRN Reason Start Time Stop Time Status Last Admin Dose Admin Acetaminophen (Tylenol) 650 mg Q4H PRN NG Mild Pain/Temp > 100.5 11/12/18 19:00 12/12/18 18:47 11/24/18 13:34 Amlodipine Besylate (Norvasc) 2.5 mg DAILY GT 11/22/18 09:00 12/22/18 08:59 11/26/18 09:24 Aspirin (ASA) 81 mg DAILY GT 11/20/18 09:00 12/20/18 08:59 11/25/18 08:27 Atorvastatin Calcium (Lipitor) 10 mg BEDTIME NG 11/12/18 21:00 12/02/18 20:59 11/25/18 20:19 Chlorhexidine Gluconate (Glo-Hex 2%) 1 applic DAILY@1999 TOPIC 11/11/18 20:00 12/08/18 19:59 11/25/18 20:18 Collagenase (Santyl) 1 applic DAILY@2099 TOPIC 11/14/18 21:00 12/14/18 20:59 11/25/18 20:19 Dextrose (Dextrose 50%) 25 ml Q30M PRN IV Hypoglycemia 11/11/18 14:45 11/30/18 22:44 Dextrose (Dextrose 50%) 50 ml Q30M PRN IV Hypoglycemia 11/11/18 14:45 11/30/18 22:44 Docusate Sodium (Colace) 100 mg EVERY 8 HOURS PRN GT constipation 11/24/18 18:51 12/20/18 18:50 Hydralazine HCl (Apresoline) 10 mg Q6H PRN IV For High Blood Pressure 11/11/18 14:39 12/11/18 14:38 Insulin Aspart (NovoLOG) EVERY 6 HOURS SUBQ 11/12/18 12:00 12/01/18 06:29 11/26/18 11:41 Lactulose (Cephulac) 20 gm THREE TIMES A DAY PRN GT Constipation 11/24/18 18:51 12/23/18 18:50 Lansoprazole (Prevacid) 30 mg BID GT 11/20/18 09:00 12/20/18 08:59 11/26/18 09:21 Lorazepam (Ativan) 1 mg EVERY 6 HOURS PRN GT For Anxiety 11/20/18 22:00 11/27/18 21:59 11/26/18 00:03 Micafungin Sodium 100 mg/Sodium Chloride 110 ml @ 110 mls/hr Q24H IVPB 11/13/18 18:00 12/01/18 17:59 11/25/18 18:27 Nicotine (Nicoderm) 1 patch Q24H TDERMAL 11/11/18 22:15 12/01/18 22:14 11/25/18 21:28 Olanzapine (ZyPREXA) 2.5 mg BEDTIME NG 11/13/18 21:00 12/13/18 20:59 11/25/18 20:19 Olanzapine (ZyPREXA) 2.5 mg Q6H PRN ORAL agitation 11/15/18 23:00 12/15/18 22:59 Polyethylene Glycol (Miralax) 17 gm BEDTIME ORAL 11/23/18 21:00 12/23/18 20:59 11/25/18 20:19 Polyethylene Glycol (Miralax) 17 gm DAILYPRN PRN NG Constipation 11/12/18 19:00 12/11/18 15:29 11/13/18 05:30 Sevelamer Carbonate (Renvela) 800 mg Q8HR GT 11/20/18 14:00 12/20/18 13:59 11/26/18 14:28 Tacrolimus (Prograf) 2 mg MoWeFr@0000,1200 ORAL 11/13/18 00:00 12/02/18 00:00 11/25/18 13:41 Tacrolimus (Prograf) 2 mg SuTuThSa@0900,2100 ORAL 11/17/18 21:00 12/17/18 20:59 11/26/18 09:21 Tramadol HCl (Ultram) 25 mg ONCE GT 11/26/18 16:17 11/26/18 18:00 11/26/18 16:36 Tramadol HCl (Ultram) 50 mg Q6H PRN GT For Pain 11/26/18 11:30 12/03/18 11:29 11/26/18 11:44 Francois Landis M.D. Nov 26, 2018 17:11
[2018-11-26] MEDS: Micafungin 100 MG in NS 110 ML IVPB SCH (18:31)
[2018-11-26] MEDS ORDERED: NS 275ml ONE (19:35)
[2018-11-26] MEDS ORDERED: Tubing IV Secondary IV ONE (19:35)
[2018-11-26 20:00] VITALS: BP 109/77
[2018-11-26] MEDS: Dyna-Hex 2% Top Sol 2oz TOPIC SCH (20:25)
[2018-11-26] MEDS: Miralax 17gm pkt ORAL SCH (20:27)
[2018-11-26] MEDS: OLANZapine 2.5mg tab NG SCH (20:27)
--- NOTE | 2018-11-26 21:56 | General Progress Note ---
Assessment/Plan Problem List: (1) Encephalopathy acute ICD Codes: G93.40 - Encephalopathy, unspecified SNOMED: 17951799, 476363836 Status: stable Assessment/Plan Zyprexa 2.5mg po qhs haldol IM prn the pt lacks capacity ativan 1mg gt prior to weaning off from vent Subjective 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: Reports: anxiety, depressed Allergies: Coded Allergies: CEPHALEXIN (Unverified Allergy, Unknown, 02/24/14) SULFAMETHOXAZOLE (Unverified Allergy, Unknown, 02/24/14) TRIMETHOPRIM (Unverified Allergy, Unknown, 02/24/14) Subjective the pt was disoriented to date and year non verbal the pt is the same no changes uncooperative with weaning process noncompliant Objective Last 24 Hour Vital Signs Date Time Temp Pulse Resp B/P (MAP) Pulse Ox O2 Delivery O2 Flow Rate FiO2 11/26/18 20:58 79 19 30 11/26/18 19:21 76 20 30 11/26/18 19:21 98 Mechanical Ventilator 30 11/26/18 19:21 Mechanical Ventilator 30 11/26/18 16:47 73 25 30 11/26/18 16:00 97.2 78 21 135/67 (89) 99 11/26/18 16:00 Mechanical Ventilator 11/26/18 16:00 79 11/26/18 16:00 40 11/26/18 14:50 65 22 30 11/26/18 13:01 82 22 40 11/26/18 12:00 Mechanical Ventilator 11/26/18 12:00 97.5 80 21 162/105 (124) 100 11/26/18 12:00 79 11/26/18 12:00 40 11/26/18 10:55 77 23 40 11/26/18 09:24 80 111/82 11/26/18 08:56 80 25 40 11/26/18 08:07 Mechanical Ventilator 40 11/26/18 08:06 98 Mechanical Ventilator 40 11/26/18 08:00 Mechanical Ventilator 11/26/18 08:00 40 11/26/18 08:00 81 11/26/18 08:00 97.7 78 25 111/82 (92) 100 11/26/18 06:54 83 27 40 11/26/18 05:30 86 27 40 11/26/18 04:10 81 11/26/18 04:00 Mechanical Ventilator 11/26/18 04:00 98.3 81 20 142/85 (104) 100 11/26/18 04:00 40 11/26/18 02:55 81 22 40 11/26/18 01:21 79 25 40 11/26/18 00:00 98.5 81 22 126/63 (84) 100 11/26/18 00:00 Mechanical Ventilator 11/25/18 23:27 76 11/25/18 22:40 78 21 40 Intake and Output 11/25/18 11/26/18 19:00 07:00 Intake Total 585 ml 740 ml Balance 585 ml 740 ml Free Water 200 ml Tube Feeding 585 ml 540 ml Laboratory Tests 11/26/18 04:00: White Blood Count 9.4, Red Blood Count 4.52L, Hemoglobin 11.2L, Hematocrit 37.1L , Mean Corpuscular Volume 82, Mean Corpuscular Hemoglobin 24.9L, Mean Corpuscular Hemoglobin Concent 30.2L, Red Cell Distribution Width 17.1H, Platelet Count 163, Mean Platelet Volume 8.2, Neutrophils (%) (Auto) 81.6H, Lymphocytes (%) (Auto) 11.5L, Monocytes (%) (Auto) 6.2, Eosinophils (%) (Auto) 0.0, Basophils (%) (Auto) 0.6, Sodium Level 132L, Potassium Level 4.6, Chloride Level 95L, Carbon Dioxide Level 30, Anion Gap 7, Blood Urea Nitrogen 60H, Creatinine 6.8H, Estimat Glomerular Filtration Rate 8.2, Glucose Level 153H, Calcium Level 8.7, Phosphorus Level 4.0, Magnesium Level 2.4, Total Bilirubin 0.3, Direct Bilirubin < 0.1, Aspartate Amino Transf (AST/SGOT) 15, Alanine Aminotransferase (ALT/SGPT) 12, Alkaline Phosphatase 88, Total Protein 6.5, Albumin 2.1L Height (Feet): 5 Height (Inches): 5.00 Weight (Pounds): 206 General Appearance: WD/WN, no apparent distress, alert Jeffrey Lala MD Nov 26, 2018 21:56
[2018-11-27] VITALS: BP 101/80
[2018-11-27] MEDS: NovoLOG Insulin Flexpen SUBQ SCH ×4 (00:23→18:32)
[2018-11-27] MEDS: traMADol 50mg tab GT PRN ×3 (03:36→18:27)
[2018-11-27 04:00] VITALS: BP 115/74
[2018-11-27 05:00] LABS: HEMATOCRIT 36.2 % (42.0-52.0); LYMPHOCYTES % (AUTO) 19.2 % (20.0-45.0); MEAN CORPUSCULAR VOLUME 82 FL (80-99); MONOCYTES % (AUTO) 7.4 % (1.0-10.0); NEUTROPHILS % (AUTO) 72.3 % (45.0-75.0); PLATELET COUNT 158 K/UL (150-450); RED BLOOD COUNT 4.42 M/UL (4.70-6.10); RED CELL DISTRIBUTION WIDTH 16.9 % (11.6-14.8); WHITE BLOOD COUNT 7.3 K/UL (4.8-10.8)
[2018-11-27 05:17] LABS: ANION GAP 9 mmol/L (5-15); BLOOD UREA NITROGEN 71 mg/dL (7-18); CALCIUM 8.7 MG/DL (8.5-10.1); CARBON DIOXIDE 28 MMOL/L (21-32); CHLORIDE 94 MMOL/L (98-107); CREATININE 7.6 MG/DL (0.55-1.30); POTASSIUM 4.8 MMOL/L (3.5-5.1); SODIUM 131 MMOL/L (136-145)
[2018-11-27] MEDS: Renvela 800mg Pkt GT SCH ×3 (05:53→22:01)
[2018-11-27 08:00] VITALS: BP 163/62
--- NOTE | 2018-11-27 08:22 | Pulmonology Progress Note ---
Assessment/Plan Assessment/Plan 1. Resp failure, hypercapneic 2. End-stage renal disease, on dialysis, status post multiple upper extremity vascular procedures. 3. Coronary artery bypass surgery. 4. Diabetes. 5. Dysphonia, tongue swelling; s/p trach PLAN: not tolerating weaning tolerates feeds disc w RN, Dr Stevens workin clare placement Subjective Constitutional: Reports: no symptoms Allergies: Coded Allergies: CEPHALEXIN (Unverified Allergy, Unknown, 02/24/14) SULFAMETHOXAZOLE (Unverified Allergy, Unknown, 02/24/14) TRIMETHOPRIM (Unverified Allergy, Unknown, 02/24/14) Objective Last 24 Hour Vital Signs Date Time Temp Pulse Resp B/P (MAP) Pulse Ox O2 Delivery O2 Flow Rate FiO2 11/27/18 05:18 76 17 30 11/27/18 04:00 Mechanical Ventilator 11/27/18 04:00 40 11/27/18 04:00 97.9 71 18 115/74 (88) 98 11/27/18 03:36 76 11/27/18 03:18 79 20 30 11/27/18 00:59 75 20 30 11/27/18 00:00 Mechanical Ventilator 11/27/18 00:00 74 11/27/18 00:00 98.2 77 21 101/80 (87) 100 11/26/18 23:33 73 19 30 11/26/18 20:58 79 19 30 11/26/18 20:00 Mechanical Ventilator 11/26/18 20:00 98.6 78 20 109/77 (88) 100 11/26/18 20:00 40 11/26/18 19:21 76 20 30 11/26/18 19:21 98 Mechanical Ventilator 30 11/26/18 19:21 Mechanical Ventilator 30 11/26/18 19:01 80 11/26/18 16:47 73 25 30 11/26/18 16:00 97.2 78 21 135/67 (89) 99 11/26/18 16:00 Mechanical Ventilator 11/26/18 16:00 79 11/26/18 16:00 40 11/26/18 14:50 65 22 30 11/26/18 13:01 82 22 40 11/26/18 12:00 Mechanical Ventilator 11/26/18 12:00 97.5 80 21 162/105 (124) 100 11/26/18 12:00 79 11/26/18 12:00 40 11/26/18 10:55 77 23 40 11/26/18 09:24 80 111/82 11/26/18 08:56 80 25 40 Intake and Output 11/26/18 11/27/18 18:59 06:59 Intake Total 695 ml 650 ml Balance 695 ml 650 ml Free Water 200 ml 110 ml Tube Feeding 495 ml 540 ml Objective trach on vent General Appearance: no acute distress Respiratory/Chest: lungs clear Cardiovascular: normal rate Laboratory Tests 11/27/18 04:00: White Blood Count 7.3, Red Blood Count 4.42L, Hemoglobin 11.0L, Hematocrit 36.2L , Mean Corpuscular Volume 82, Mean Corpuscular Hemoglobin 24.9L, Mean Corpuscular Hemoglobin Concent 30.4L, Red Cell Distribution Width 16.9H, Platelet Count 158, Mean Platelet Volume 8.5, Neutrophils (%) (Auto) 72.3, Lymphocytes (%) (Auto) 19.2L, Monocytes (%) (Auto) 7.4, Eosinophils (%) (Auto) 0.0, Basophils (%) (Auto) 1.0, Sodium Level 131L, Potassium Level 4.8, Chloride Level 94L, Carbon Dioxide Level 28, Anion Gap 9, Blood Urea Nitrogen 71H, Creatinine 7.6H, Estimat Glomerular Filtration Rate 7.2, Glucose Level 138H, Calcium Level 8.7 Current Medications Medications (Trade) Dose Ordered Sig/Aleks Route PRN Reason Start Time Stop Time Status Last Admin Dose Admin Acetaminophen (Tylenol) 650 mg Q4H PRN NG Mild Pain/Temp > 100.5 11/12/18 19:00 12/12/18 18:47 11/24/18 13:34 Amlodipine Besylate (Norvasc) 2.5 mg DAILY GT 11/22/18 09:00 12/22/18 08:59 11/26/18 09:24 Aspirin (ASA) 81 mg DAILY GT 11/20/18 09:00 12/20/18 08:59 11/25/18 08:27 Atorvastatin Calcium (Lipitor) 10 mg BEDTIME NG 11/12/18 21:00 12/02/18 20:59 11/26/18 20:26 Chlorhexidine Gluconate (Glo-Hex 2%) 1 applic DAILY@1999 TOPIC 11/11/18 20:00 12/08/18 19:59 11/26/18 20:25 Collagenase (Santyl) 1 applic DAILY@2099 TOPIC 11/14/18 21:00 12/14/18 20:59 11/26/18 20:28 Dextrose (Dextrose 50%) 25 ml Q30M PRN IV Hypoglycemia 11/11/18 14:45 11/30/18 22:44 Dextrose (Dextrose 50%) 50 ml Q30M PRN IV Hypoglycemia 11/11/18 14:45 11/30/18 22:44 Docusate Sodium (Colace) 100 mg EVERY 8 HOURS PRN GT constipation 11/24/18 18:51 12/20/18 18:50 Hydralazine HCl (Apresoline) 10 mg Q6H PRN IV For High Blood Pressure 11/11/18 14:39 12/11/18 14:38 Insulin Aspart (NovoLOG) EVERY 6 HOURS SUBQ 11/12/18 12:00 12/01/18 06:29 11/27/18 05:55 Lactulose (Cephulac) 20 gm THREE TIMES A DAY PRN GT Constipation 11/24/18 18:51 12/23/18 18:50 Lansoprazole (Prevacid) 30 mg BID GT 11/20/18 09:00 12/20/18 08:59 11/26/18 18:31 Lorazepam (Ativan) 1 mg EVERY 6 HOURS PRN GT For Anxiety 11/20/18 22:00 11/27/18 21:59 11/26/18 00:03 Micafungin Sodium 100 mg/Sodium Chloride 110 ml @ 110 mls/hr Q24H IVPB 11/13/18 18:00 12/01/18 17:59 11/26/18 18:31 Nicotine (Nicoderm) 1 patch Q24H TDERMAL 11/11/18 22:15 12/01/18 22:14 11/26/18 21:22 Olanzapine (ZyPREXA) 2.5 mg BEDTIME NG 11/13/18 21:00 12/13/18 20:59 11/26/18 20:27 Olanzapine (ZyPREXA) 2.5 mg Q6H PRN ORAL agitation 11/15/18 23:00 12/15/18 22:59 Polyethylene Glycol (Miralax) 17 gm BEDTIME ORAL 11/23/18 21:00 12/23/18 20:59 11/26/18 20:27 Polyethylene Glycol (Miralax) 17 gm DAILYPRN PRN NG Constipation 11/12/18 19:00 12/11/18 15:29 11/13/18 05:30 Sevelamer Carbonate (Renvela) 800 mg Q8HR GT 11/20/18 14:00 12/20/18 13:59 11/27/18 05:53 Tacrolimus (Prograf) 2 mg MoWeFr@0000,1200 ORAL 11/13/18 00:00 12/02/18 00:00 11/27/18 00:22 Tacrolimus (Prograf) 2 mg SuTuThSa@0900,2100 ORAL 11/17/18 21:00 12/17/18 20:59 11/26/18 20:26 Tramadol HCl (Ultram) 50 mg Q6H PRN GT For Pain 11/26/18 11:30 12/03/18 11:29 11/27/18 03:36 Saroj Mendoza MD Nov 27, 2018 08:22
[2018-11-27] MEDS: Aspirin Baby 81mg GT SCH (09:00)
--- NOTE | 2018-11-27 09:44 | Nephrology Progress Note ---
Assessment/Plan Problem List: (1) ESRD (end stage renal disease) on dialysis (2) Foot ulcer (3) CHF (congestive heart failure) (4) Pacemaker (5) Acute respiratory failure Assessment: with Co2 retention Assessment ESRD with high K and SOB on admit Foot ulcer, likely infected High Troponin likely NSTMI Pacer , Pleural effusion s/p CABGS s/p Liver transplant Plan Now has tracheostomy and PEG Adjust BP meds HD next Antibiotics by ID start tube feeding / hasPEG per cardio and ID Podiatry and Vascular surgical fu PRN tramadol for pain ? DC planning? ALSO COVERING MEDCINE FOR DR BERG Subjective ROS Limited/Unobtainable: No Objective Objective Last 24 Hour Vital Signs Date Time Temp Pulse Resp B/P (MAP) Pulse Ox O2 Delivery O2 Flow Rate FiO2 11/27/18 09:10 66 19 30 11/27/18 07:05 Mechanical Ventilator 30 11/27/18 07:05 99 Mechanical Ventilator 30 11/27/18 07:05 70 19 30 11/27/18 05:18 76 17 30 11/27/18 04:00 Mechanical Ventilator 11/27/18 04:00 40 11/27/18 04:00 97.9 71 18 115/74 (88) 98 11/27/18 03:36 76 11/27/18 03:18 79 20 30 11/27/18 00:59 75 20 30 11/27/18 00:00 Mechanical Ventilator 11/27/18 00:00 74 11/27/18 00:00 98.2 77 21 101/80 (87) 100 11/26/18 23:33 73 19 30 11/26/18 20:58 79 19 30 11/26/18 20:00 Mechanical Ventilator 11/26/18 20:00 98.6 78 20 109/77 (88) 100 11/26/18 20:00 40 11/26/18 19:21 76 20 30 11/26/18 19:21 98 Mechanical Ventilator 30 11/26/18 19:21 Mechanical Ventilator 30 11/26/18 19:01 80 11/26/18 16:47 73 25 30 11/26/18 16:00 97.2 78 21 135/67 (89) 99 11/26/18 16:00 Mechanical Ventilator 11/26/18 16:00 79 11/26/18 16:00 40 11/26/18 14:50 65 22 30 11/26/18 13:01 82 22 40 11/26/18 12:00 Mechanical Ventilator 11/26/18 12:00 97.5 80 21 162/105 (124) 100 11/26/18 12:00 79 11/26/18 12:00 40 11/26/18 10:55 77 23 40 Intake and Output 11/26/18 11/27/18 19:00 07:00 Intake Total 695 ml 605 ml Balance 695 ml 605 ml Free Water 200 ml 110 ml Tube Feeding 495 ml 495 ml Laboratory Tests 11/27/18 04:00: White Blood Count 7.3, Red Blood Count 4.42L, Hemoglobin 11.0L, Hematocrit 36.2L , Mean Corpuscular Volume 82, Mean Corpuscular Hemoglobin 24.9L, Mean Corpuscular Hemoglobin Concent 30.4L, Red Cell Distribution Width 16.9H, Platelet Count 158, Mean Platelet Volume 8.5, Neutrophils (%) (Auto) 72.3, Lymphocytes (%) (Auto) 19.2L, Monocytes (%) (Auto) 7.4, Eosinophils (%) (Auto) 0.0, Basophils (%) (Auto) 1.0, Sodium Level 131L, Potassium Level 4.8, Chloride Level 94L, Carbon Dioxide Level 28, Anion Gap 9, Blood Urea Nitrogen 71H, Creatinine 7.6H, Estimat Glomerular Filtration Rate 7.2, Glucose Level 138H, Calcium Level 8.7 Height (Feet): 5 Height (Inches): 5.00 Weight (Pounds): 207 General Appearance: no apparent distress Neck: other - trach Respiratory/Chest: decreased breath sounds Abdomen: soft, distended Objective no other change Nakul Stevens MD Nov 27, 2018 09:44
--- NOTE | 2018-11-27 10:41 | GI Progress Note ---
Assessment/Plan Problems: (1) Foot ulcer ICD Codes: L97.509 - Non-pressure chronic ulcer of other part of unspecified foot with unspecified severity SNOMED: 97411265 Qualifiers: Qualified Codes: L97.511 - Non-pressure chronic ulcer of other part of right foot limited to breakdown of skin (2) DM (diabetes mellitus) ICD Codes: E11.9 - Type 2 diabetes mellitus without complications SNOMED: 76949450 (3) Transplant ICD Codes: Z94.9 - Transplanted organ and tissue status, unspecified SNOMED: 753521664 Status: unchanged Status Narrative Discussed with Dr. Escalera Assessment/Plan History of liver transplant, currently on Prograf constipation status post tracheostomy and PEG GTF HD per nephro supportive care cont tacrolimus prn transfusions ppi zofran prn Bowel regimen follow labs The patient was seen and examined at bedside and all new and available data was reviewed in the patients chart. I agree with the above findings, impression and plan. (Patient seen earlier today. Signature stamp does not reflect patient encounter time.). - Jorge Escalera MD Subjective Subjective Limited Objective Last 24 Hour Vital Signs Date Time Temp Pulse Resp B/P (MAP) Pulse Ox O2 Delivery O2 Flow Rate FiO2 11/27/18 09:10 66 19 30 11/27/18 07:05 Mechanical Ventilator 30 11/27/18 07:05 99 Mechanical Ventilator 30 11/27/18 07:05 70 19 30 11/27/18 05:18 76 17 30 11/27/18 04:00 Mechanical Ventilator 11/27/18 04:00 40 11/27/18 04:00 97.9 71 18 115/74 (88) 98 11/27/18 03:36 76 11/27/18 03:18 79 20 30 11/27/18 00:59 75 20 30 11/27/18 00:00 Mechanical Ventilator 11/27/18 00:00 74 11/27/18 00:00 98.2 77 21 101/80 (87) 100 11/26/18 23:33 73 19 30 11/26/18 20:58 79 19 30 11/26/18 20:00 Mechanical Ventilator 11/26/18 20:00 98.6 78 20 109/77 (88) 100 11/26/18 20:00 40 11/26/18 19:21 76 20 30 11/26/18 19:21 98 Mechanical Ventilator 30 11/26/18 19:21 Mechanical Ventilator 30 11/26/18 19:01 80 11/26/18 16:47 73 25 30 11/26/18 16:00 97.2 78 21 135/67 (89) 99 11/26/18 16:00 Mechanical Ventilator 11/26/18 16:00 79 11/26/18 16:00 40 11/26/18 14:50 65 22 30 11/26/18 13:01 82 22 40 11/26/18 12:00 Mechanical Ventilator 11/26/18 12:00 97.5 80 21 162/105 (124) 100 11/26/18 12:00 79 11/26/18 12:00 40 11/26/18 10:55 77 23 40 Intake and Output 11/26/18 11/27/18 19:00 07:00 Intake Total 695 ml 605 ml Balance 695 ml 605 ml Free Water 200 ml 110 ml Tube Feeding 495 ml 495 ml Laboratory Tests Test 11/27/18 04:00 White Blood Count 7.3 K/UL (4.8-10.8) Red Blood Count 4.42 M/UL (4.70-6.10) L Hemoglobin 11.0 G/DL (14.2-18.0) L Hematocrit 36.2 % (42.0-52.0) L Mean Corpuscular Volume 82 FL (80-99) Mean Corpuscular Hemoglobin 24.9 PG (27.0-31.0) L Mean Corpuscular Hemoglobin Concent 30.4 G/DL (32.0-36.0) L Red Cell Distribution Width 16.9 % (11.6-14.8) H Platelet Count 158 K/UL (150-450) Mean Platelet Volume 8.5 FL (6.5-10.1) Neutrophils (%) (Auto) 72.3 % (45.0-75.0) Lymphocytes (%) (Auto) 19.2 % (20.0-45.0) L Monocytes (%) (Auto) 7.4 % (1.0-10.0) Eosinophils (%) (Auto) 0.0 % (0.0-3.0) Basophils (%) (Auto) 1.0 % (0.0-2.0) Sodium Level 131 MMOL/L (136-145) L Potassium Level 4.8 MMOL/L (3.5-5.1) Chloride Level 94 MMOL/L (98-107) L Carbon Dioxide Level 28 MMOL/L (21-32) Anion Gap 9 mmol/L (5-15) Blood Urea Nitrogen 71 mg/dL (7-18) H Creatinine 7.6 MG/DL (0.55-1.30) H Estimat Glomerular Filtration Rate 7.2 mL/min (>60) Glucose Level 138 MG/DL (74-106) H Calcium Level 8.7 MG/DL (8.5-10.1) Height (Feet): 5 Height (Inches): 5.00 Weight (Pounds): 207 General Appearance: WD/WN, no apparent distress, alert Cardiovascular: normal rate Respiratory/Chest: normal breath sounds, no respiratory distress Abdominal Exam: normal bowel sounds, non tender, soft, other - Clean dry and intact Extremities: non-tender Kelvin Briggs NP Nov 27, 2018 10:41
--- NOTE | 2018-11-27 11:45 | Podiatric Progress Note ---
Assessment/Plan Patient Gregg Restrepo is a 68 year old male who was admitted on Oct 31, 2018 at 19:13 with Problems: (1) Acute respiratory failure (2) DM (diabetes mellitus) (3) Foot ulcer (4) ESRD (end stage renal disease) on dialysis (5) CHF (congestive heart failure) Assessment/Plan Order Betadine application to control heel maceration. Patient may benefit from heel debridement. Patient will be followed. Subjective Allergies: Coded Allergies: CEPHALEXIN (Unverified Allergy, Unknown, 02/24/14) SULFAMETHOXAZOLE (Unverified Allergy, Unknown, 02/24/14) TRIMETHOPRIM (Unverified Allergy, Unknown, 02/24/14) Subjective f/u R heel ulcer. Patient has been getting Santyl application. Objective Exam Last 24 Hour Vital Signs Date Time Temp Pulse Resp B/P (MAP) Pulse Ox O2 Delivery O2 Flow Rate FiO2 11/27/18 11:02 70 163/62 11/27/18 09:10 66 19 30 11/27/18 07:05 Mechanical Ventilator 30 11/27/18 07:05 99 Mechanical Ventilator 30 11/27/18 07:05 70 19 30 11/27/18 05:18 76 17 30 11/27/18 04:00 Mechanical Ventilator 11/27/18 04:00 40 11/27/18 04:00 97.9 71 18 115/74 (88) 98 11/27/18 03:36 76 11/27/18 03:18 79 20 30 11/27/18 00:59 75 20 30 11/27/18 00:00 Mechanical Ventilator 11/27/18 00:00 74 11/27/18 00:00 98.2 77 21 101/80 (87) 100 11/26/18 23:33 73 19 30 11/26/18 20:58 79 19 30 11/26/18 20:00 Mechanical Ventilator 11/26/18 20:00 98.6 78 20 109/77 (88) 100 11/26/18 20:00 40 11/26/18 19:21 76 20 30 11/26/18 19:21 98 Mechanical Ventilator 30 11/26/18 19:21 Mechanical Ventilator 30 11/26/18 19:01 80 11/26/18 16:47 73 25 30 11/26/18 16:00 97.2 78 21 135/67 (89) 99 11/26/18 16:00 Mechanical Ventilator 11/26/18 16:00 79 11/26/18 16:00 40 11/26/18 14:50 65 22 30 11/26/18 13:01 82 22 40 11/26/18 12:00 Mechanical Ventilator 11/26/18 12:00 97.5 80 21 162/105 (124) 100 11/26/18 12:00 79 11/26/18 12:00 40 Laboratory Tests Test 11/27/18 04:00 White Blood Count 7.3 K/UL (4.8-10.8) Red Blood Count 4.42 M/UL (4.70-6.10) L Hemoglobin 11.0 G/DL (14.2-18.0) L Hematocrit 36.2 % (42.0-52.0) L Mean Corpuscular Volume 82 FL (80-99) Mean Corpuscular Hemoglobin 24.9 PG (27.0-31.0) L Mean Corpuscular Hemoglobin Concent 30.4 G/DL (32.0-36.0) L Red Cell Distribution Width 16.9 % (11.6-14.8) H Platelet Count 158 K/UL (150-450) Mean Platelet Volume 8.5 FL (6.5-10.1) Neutrophils (%) (Auto) 72.3 % (45.0-75.0) Lymphocytes (%) (Auto) 19.2 % (20.0-45.0) L Monocytes (%) (Auto) 7.4 % (1.0-10.0) Eosinophils (%) (Auto) 0.0 % (0.0-3.0) Basophils (%) (Auto) 1.0 % (0.0-2.0) Sodium Level 131 MMOL/L (136-145) L Potassium Level 4.8 MMOL/L (3.5-5.1) Chloride Level 94 MMOL/L (98-107) L Carbon Dioxide Level 28 MMOL/L (21-32) Anion Gap 9 mmol/L (5-15) Blood Urea Nitrogen 71 mg/dL (7-18) H Creatinine 7.6 MG/DL (0.55-1.30) H Estimat Glomerular Filtration Rate 7.2 mL/min (>60) Glucose Level 138 MG/DL (74-106) H Calcium Level 8.7 MG/DL (8.5-10.1) Microbiology Date/Time Source Procedure Growth Status 11/14/18 15:30 Blood Blood Culture - Final NO GROWTH AFTER 5 DAYS Complete 11/12/18 12:13 Pleural Fluid Gram Stain - Final Complete 11/12/18 12:13 Pleural Fluid Body Fluid Culture - Final NO GROWTH Complete 10/31/18 20:39 Wound Gram Stain - Final Complete 10/31/18 20:39 Wound Culture - Final Staphylococcus Aureus - Mrsa Complete 10/31/18 21:00 Nasal Nares MRSA Culture - Final Staphylococcus Aureus - Mrsa Complete 11/14/18 14:53 Neck Gram Stain - Final Complete 11/14/18 14:53 Wound Culture - Final Klebsiella Pneumoniae Pseudomonas Aeruginosa Staphylococcus Aureus - Mrsa Hannah Tropicalis Complete Dermatological Dermatological Narrative R heel ulcer noted to be macerating Rim. no drainage no discharge. no pus. eschar noted to be softened by Dhruv Heller DPM Nov 27, 2018 11:45
[2018-11-27 12:00] VITALS: BP 163/117
[2018-11-27] MEDS: LORazepam 1mg tab GT PRN (12:59)
--- NOTE | 2018-11-27 13:14 | Cardiology Progress Note ---
Assessment/Plan Assessment/Plan Assessment/Plan Assessment/Plan 1. Troponin leak with no chest pain. Hx of CABG. Due to renal failure. On Coreg 6.25 mg bid, aspirin and Lipitor 2. S/P CABG - outpatient stress test 3. Nonsustained ventricular tachycardia. 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 EF 55%. No Syncope, monitor electrolytes 4. Congestive heart failure. On hemodialysis 5. End-stage renal disease, on hemodialysis per Dr. Stevens 6. Status post right sided [employer] dual chamber pacemaker with Nl Fx. 7. Right foot ulcer. Antibiotic per Dr. Landis. FU by Dr. Huizar 8. History of liver transplant on Prograf 9. Respiratory failure, ? etiology anaphylaxis. S/P Emergency tracheostomy. Weaned off the vent on T Piece 10. Pleural effusion. FU Dr. Mendoza 11. Dysphagia, S/P PEG Dispo planning [place] when approved Subjective Cardiovascular: Reports: no symptoms Respiratory: Reports: no symptoms Gastrointestinal/Abdominal: Reports: no symptoms Genitourinary: Reports: no symptoms Subjective COVERAGE FOR [facility] Awaiting placement, referral faxed No acute events, vitals stable, CV stable Objective Last 24 Hour Vital Signs Date Time Temp Pulse Resp B/P (MAP) Pulse Ox O2 Delivery O2 Flow Rate FiO2 11/27/18 11:25 72 20 30 11/27/18 11:02 70 163/62 11/27/18 09:10 66 19 30 11/27/18 07:05 Mechanical Ventilator 30 11/27/18 07:05 99 Mechanical Ventilator 30 11/27/18 07:05 70 19 30 11/27/18 05:18 76 17 30 11/27/18 04:00 Mechanical Ventilator 11/27/18 04:00 40 11/27/18 04:00 97.9 71 18 115/74 (88) 98 11/27/18 03:36 76 11/27/18 03:18 79 20 30 11/27/18 00:59 75 20 30 11/27/18 00:00 Mechanical Ventilator 11/27/18 00:00 74 11/27/18 00:00 98.2 77 21 101/80 (87) 100 11/26/18 23:33 73 19 30 11/26/18 20:58 79 19 30 11/26/18 20:00 Mechanical Ventilator 11/26/18 20:00 98.6 78 20 109/77 (88) 100 11/26/18 20:00 40 11/26/18 19:21 76 20 30 11/26/18 19:21 98 Mechanical Ventilator 30 11/26/18 19:21 Mechanical Ventilator 30 11/26/18 19:01 80 11/26/18 16:47 73 25 30 11/26/18 16:00 97.2 78 21 135/67 (89) 99 11/26/18 16:00 Mechanical Ventilator 11/26/18 16:00 79 11/26/18 16:00 40 11/26/18 14:50 65 22 30 General Appearance: no apparent distress, alert EENT: PERRL/EOMI, normal ENT inspection, TMs normal Neck: normal alignment, supple Rhythm: NSR Cardiovascular: normal peripheral pulses, normal rate, regular rhythm Abdomen: normal bowel sounds, non tender, soft, no organomegaly Extremities: normal range of motion, non-tender Neurologic: sports medicine coordinator 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 normal, no motor/sensory deficits Intake and Output 11/26/18 11/27/18 19:00 07:00 Intake Total 695 ml 605 ml Balance 695 ml 605 ml Free Water 200 ml 110 ml Tube Feeding 495 ml 495 ml Laboratory Tests Test 11/27/18 04:00 White Blood Count 7.3 K/UL (4.8-10.8) Red Blood Count 4.42 M/UL (4.70-6.10) L Hemoglobin 11.0 G/DL (14.2-18.0) L Hematocrit 36.2 % (42.0-52.0) L Mean Corpuscular Volume 82 FL (80-99) Mean Corpuscular Hemoglobin 24.9 PG (27.0-31.0) L Mean Corpuscular Hemoglobin Concent 30.4 G/DL (32.0-36.0) L Red Cell Distribution Width 16.9 % (11.6-14.8) H Platelet Count 158 K/UL (150-450) Mean Platelet Volume 8.5 FL (6.5-10.1) Neutrophils (%) (Auto) 72.3 % (45.0-75.0) Lymphocytes (%) (Auto) 19.2 % (20.0-45.0) L Monocytes (%) (Auto) 7.4 % (1.0-10.0) Eosinophils (%) (Auto) 0.0 % (0.0-3.0) Basophils (%) (Auto) 1.0 % (0.0-2.0) Sodium Level 131 MMOL/L (136-145) L Potassium Level 4.8 MMOL/L (3.5-5.1) Chloride Level 94 MMOL/L (98-107) L Carbon Dioxide Level 28 MMOL/L (21-32) Anion Gap 9 mmol/L (5-15) Blood Urea Nitrogen 71 mg/dL (7-18) H Creatinine 7.6 MG/DL (0.55-1.30) H Estimat Glomerular Filtration Rate 7.2 mL/min (>60) Glucose Level 138 MG/DL (74-106) H Calcium Level 8.7 MG/DL (8.5-10.1) Dhruv Jin MD Nov 27, 2018 13:14
[2018-11-27] MEDS ORDERED: traMADol 50mg tab GT PRN (15:32)
[2018-11-27 16:00] VITALS: BP 127/73
[2018-11-27] MEDS ORDERED: NS 275ml ONE (16:09)
--- NOTE | 2018-11-27 16:34 | Infectious Diseases Prog Note ---
Assessment/Plan Problems: (1) Thrush, oral Assessment & Plan: continue local nystatin , and iv micafungin to treat him since fluconazole has many interaction with his transplants meds . may need to rule out esophageal sergio since immunocompromised (2) HCV antibody positive Assessment & Plan: no evidence of active infection, with undetectable viral load , suspect due to previous infection , cleared, S/P liver transplant . (3) Foot ulcer Assessment & Plan: in diabetic patient , with MRSA , S/P vancomycin treatment with HD for two weeks , pending vascular eval and possible surgical debridement. bone scan ruled out osteomyelitis of the heel . 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 now improving, pulmonary is following (8) Pleural effusion Assessment & Plan: recurrent on the right, with lung collapse , S/P thoracentesis X2 with removal of 1.5 cc of clear fluids. PREVIOUS culture were negative with negative cytology Subjective Constitutional: Reports: no symptoms HEENT: Reports: no symptoms Respiratory: Reports: no symptoms Breasts: Reports: no symptoms Cardiovascular: Reports: no symptoms Gastrointestinal/Abdominal: Reports: no symptoms Genitourinary: Reports: no symptoms Neurologic: Reports: no symptoms Psychiatric: Reports: no symptoms Skin: Reports: no symptoms Endocrine: Reports: no symptoms Hematologic: Reports: no symptoms Musculoskeletal: Reports: no symptoms Allergies: Coded Allergies: CEPHALEXIN (Unverified Allergy, Unknown, 02/24/14) SULFAMETHOXAZOLE (Unverified Allergy, Unknown, 02/24/14) TRIMETHOPRIM (Unverified Allergy, Unknown, 02/24/14) Subjective he was ok comfortable, has less facial swelling and tongue swelling , awake and responsive, no fever or chills, no significant secretions , no SOB . has less thrush on his tongue Objective Vital Signs Last 24 Hour Vital Signs Date Time Temp Pulse Resp B/P (MAP) Pulse Ox O2 Delivery O2 Flow Rate FiO2 11/27/18 16:00 30 11/27/18 16:00 Mechanical Ventilator 11/27/18 16:00 76 11/27/18 16:00 97.2 76 18 127/73 (91) 99 11/27/18 15:05 66 18 30 11/27/18 13:15 80 21 30 11/27/18 12:00 97.6 75 19 163/117 (132) 98 11/27/18 12:00 30 11/27/18 12:00 75 11/27/18 12:00 Mechanical Ventilator 11/27/18 11:25 72 20 30 11/27/18 11:02 70 163/62 11/27/18 09:10 66 19 30 11/27/18 08:00 Mechanical Ventilator 11/27/18 08:00 71 11/27/18 08:00 97.8 70 20 163/62 (95) 100 11/27/18 08:00 30 11/27/18 07:05 Mechanical Ventilator 30 11/27/18 07:05 99 Mechanical Ventilator 30 11/27/18 07:05 70 19 30 11/27/18 05:18 76 17 30 11/27/18 04:00 Mechanical Ventilator 11/27/18 04:00 40 11/27/18 04:00 97.9 71 18 115/74 (88) 98 11/27/18 03:36 76 11/27/18 03:18 79 20 30 11/27/18 00:59 75 20 30 11/27/18 00:00 Mechanical Ventilator 11/27/18 00:00 74 11/27/18 00:00 98.2 77 21 101/80 (87) 100 11/26/18 23:33 73 19 30 11/26/18 20:58 79 19 30 11/26/18 20:00 Mechanical Ventilator 11/26/18 20:00 98.6 78 20 109/77 (88) 100 11/26/18 20:00 40 11/26/18 19:21 76 20 30 11/26/18 19:21 98 Mechanical Ventilator 30 11/26/18 19:21 Mechanical Ventilator 30 11/26/18 19:01 80 11/26/18 16:47 73 25 30 Height (Feet): 5 Height (Inches): 5.00 Weight (Pounds): 207 General Appearance: WD/WN, no acute distress HEENT: normocephalic, atraumatic, anicteric, mucous membranes moist, PERRL, EOMI, pharynx normal, supple, no JVD, status post trach, thrush Respiratory/Chest: chest wall non-tender, lungs clear, normal breath sounds, no respiratory distress, no accessory muscle use Cardiovascular: normal peripheral pulses, normal rate, regular rhythm, no gallop/murmur, no JVD Abdomen: normal bowel sounds, soft, non tender, no organomegaly, non distended , no mass, no scars Extremities: no cyanosis, no clubbing Skin: no rash, no lesions 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: palletizer 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 normal, alert, responsive Laboratory Tests Test 11/27/18 04:00 White Blood Count 7.3 K/UL (4.8-10.8) Red Blood Count 4.42 M/UL (4.70-6.10) L Hemoglobin 11.0 G/DL (14.2-18.0) L Hematocrit 36.2 % (42.0-52.0) L Mean Corpuscular Volume 82 FL (80-99) Mean Corpuscular Hemoglobin 24.9 PG (27.0-31.0) L Mean Corpuscular Hemoglobin Concent 30.4 G/DL (32.0-36.0) L Red Cell Distribution Width 16.9 % (11.6-14.8) H Platelet Count 158 K/UL (150-450) Mean Platelet Volume 8.5 FL (6.5-10.1) Neutrophils (%) (Auto) 72.3 % (45.0-75.0) Lymphocytes (%) (Auto) 19.2 % (20.0-45.0) L Monocytes (%) (Auto) 7.4 % (1.0-10.0) Eosinophils (%) (Auto) 0.0 % (0.0-3.0) Basophils (%) (Auto) 1.0 % (0.0-2.0) Sodium Level 131 MMOL/L (136-145) L Potassium Level 4.8 MMOL/L (3.5-5.1) Chloride Level 94 MMOL/L (98-107) L Carbon Dioxide Level 28 MMOL/L (21-32) Anion Gap 9 mmol/L (5-15) Blood Urea Nitrogen 71 mg/dL (7-18) H Creatinine 7.6 MG/DL (0.55-1.30) H Estimat Glomerular Filtration Rate 7.2 mL/min (>60) Glucose Level 138 MG/DL (74-106) H Calcium Level 8.7 MG/DL (8.5-10.1) Current Medications Medications (Trade) Dose Ordered Sig/Aleks Route PRN Reason Start Time Stop Time Status Last Admin Dose Admin Acetaminophen (Tylenol) 650 mg Q4H PRN NG Mild Pain/Temp > 100.5 11/12/18 19:00 12/12/18 18:47 11/24/18 13:34 Amlodipine Besylate (Norvasc) 2.5 mg DAILY GT 11/22/18 09:00 12/22/18 08:59 11/27/18 11:02 Aspirin (ASA) 81 mg DAILY GT 11/20/18 09:00 12/20/18 08:59 11/25/18 08:27 Atorvastatin Calcium (Lipitor) 10 mg BEDTIME NG 11/12/18 21:00 12/02/18 20:59 11/26/18 20:26 Chlorhexidine Gluconate (Glo-Hex 2%) 1 applic DAILY@1999 TOPIC 11/11/18 20:00 12/08/18 19:59 11/26/18 20:25 Collagenase (Santyl) 1 applic DAILY@2099 TOPIC 11/14/18 21:00 12/14/18 20:59 11/26/18 20:28 Dextrose (Dextrose 50%) 25 ml Q30M PRN IV Hypoglycemia 11/11/18 14:45 11/30/18 22:44 Dextrose (Dextrose 50%) 50 ml Q30M PRN IV Hypoglycemia 11/11/18 14:45 11/30/18 22:44 Docusate Sodium (Colace) 100 mg EVERY 8 HOURS PRN GT constipation 11/24/18 18:51 12/20/18 18:50 Hydralazine HCl (Apresoline) 10 mg Q6H PRN IV For High Blood Pressure 11/11/18 14:39 12/11/18 14:38 Insulin Aspart (NovoLOG) EVERY 6 HOURS SUBQ 11/12/18 12:00 12/01/18 06:29 11/27/18 12:43 Lactulose (Cephulac) 20 gm THREE TIMES A DAY PRN GT Constipation 11/24/18 18:51 12/23/18 18:50 Lansoprazole (Prevacid) 30 mg BID GT 11/20/18 09:00 12/20/18 08:59 11/27/18 11:01 Lorazepam (Ativan) 1 mg EVERY 6 HOURS PRN GT For Anxiety 11/20/18 22:00 11/27/18 21:59 11/27/18 12:59 Micafungin Sodium 100 mg/Sodium Chloride 110 ml @ 110 mls/hr Q24H IVPB 11/13/18 18:00 12/01/18 17:59 11/26/18 18:31 Nicotine (Nicoderm) 1 patch Q24H TDERMAL 11/11/18 22:15 12/01/18 22:14 11/26/18 21:22 Olanzapine (ZyPREXA) 2.5 mg BEDTIME NG 11/13/18 21:00 12/13/18 20:59 11/26/18 20:27 Olanzapine (ZyPREXA) 2.5 mg Q6H PRN ORAL agitation 11/15/18 23:00 12/15/18 22:59 Polyethylene Glycol (Miralax) 17 gm BEDTIME ORAL 11/23/18 21:00 12/23/18 20:59 11/26/18 20:27 Polyethylene Glycol (Miralax) 17 gm DAILYPRN PRN NG Constipation 11/12/18 19:00 12/11/18 15:29 11/13/18 05:30 Sevelamer Carbonate (Renvela) 800 mg Q8HR GT 11/20/18 14:00 12/20/18 13:59 11/27/18 14:49 Tacrolimus (Prograf) 2 mg MoWeFr@0000,1200 ORAL 11/13/18 00:00 12/02/18 00:00 11/27/18 12:38 Tacrolimus (Prograf) 2 mg SuTuThSa@0900,2100 ORAL 11/17/18 21:00 12/17/18 20:59 11/26/18 20:26 Tramadol HCl (Ultram) 50 mg Q4H PRN GT For Moderate pain 11/27/18 15:45 12/04/18 15:31 Francois Landis M.D. Nov 27, 2018 16:34
[2018-11-27] MEDS: Micafungin 100 MG in NS 110 ML IVPB SCH (18:29)
[2018-11-27 20:00] VITALS: BP 109/39
[2018-11-27] MEDS: Dyna-Hex 2% Top Sol 2oz TOPIC SCH (20:33)
[2018-11-27] MEDS: Miralax 17gm pkt ORAL SCH (20:33)
[2018-11-27] MEDS: OLANZapine 2.5mg tab NG SCH (20:33)
--- NOTE | 2018-11-27 23:48 | Psych Consult Progress Note ---
Psychiatry Progress Note Psychiatry Progress Note Medications Current Medications Medications (Trade) Dose Ordered Sig/Aleks Route PRN Reason Start Time Stop Time Status Last Admin Dose Admin Acetaminophen (Tylenol) 650 mg Q4H PRN NG Mild Pain/Temp > 100.5 11/12/18 19:00 12/12/18 18:47 11/24/18 13:34 Amlodipine Besylate (Norvasc) 2.5 mg DAILY GT 11/22/18 09:00 12/22/18 08:59 11/27/18 11:02 Aspirin (ASA) 81 mg DAILY GT 11/20/18 09:00 12/20/18 08:59 11/25/18 08:27 Atorvastatin Calcium (Lipitor) 10 mg BEDTIME NG 11/12/18 21:00 12/02/18 20:59 11/27/18 20:33 Chlorhexidine Gluconate (Glo-Hex 2%) 1 applic DAILY@1999 TOPIC 11/11/18 20:00 12/08/18 19:59 11/27/18 20:33 Collagenase (Santyl) 1 applic DAILY@2099 TOPIC 11/14/18 21:00 12/14/18 20:59 11/26/18 20:28 Dextrose (Dextrose 50%) 25 ml Q30M PRN IV Hypoglycemia 11/11/18 14:45 11/30/18 22:44 Dextrose (Dextrose 50%) 50 ml Q30M PRN IV Hypoglycemia 11/11/18 14:45 11/30/18 22:44 Docusate Sodium (Colace) 100 mg EVERY 8 HOURS PRN GT constipation 11/24/18 18:51 12/20/18 18:50 Hydralazine HCl (Apresoline) 10 mg Q6H PRN IV For High Blood Pressure 11/11/18 14:39 12/11/18 14:38 Insulin Aspart (NovoLOG) EVERY 6 HOURS SUBQ 11/12/18 12:00 12/01/18 06:29 11/27/18 18:32 Lactulose (Cephulac) 20 gm THREE TIMES A DAY PRN GT Constipation 11/24/18 18:51 12/23/18 18:50 Lansoprazole (Prevacid) 30 mg BID GT 11/20/18 09:00 12/20/18 08:59 11/27/18 18:27 Micafungin Sodium 100 mg/Sodium Chloride 110 ml @ 110 mls/hr Q24H IVPB 11/13/18 18:00 12/01/18 17:59 11/27/18 18:29 Nicotine (Nicoderm) 1 patch Q24H TDERMAL 11/11/18 22:15 12/01/18 22:14 11/27/18 22:01 Olanzapine (ZyPREXA) 2.5 mg BEDTIME NG 11/13/18 21:00 12/13/18 20:59 11/27/18 20:33 Olanzapine (ZyPREXA) 2.5 mg Q6H PRN ORAL agitation 11/15/18 23:00 12/15/18 22:59 Polyethylene Glycol (Miralax) 17 gm BEDTIME ORAL 11/23/18 21:00 12/23/18 20:59 11/27/18 20:33 Polyethylene Glycol (Miralax) 17 gm DAILYPRN PRN NG Constipation 11/12/18 19:00 12/11/18 15:29 11/13/18 05:30 Sevelamer Carbonate (Renvela) 800 mg Q8HR GT 11/20/18 14:00 12/20/18 13:59 11/27/18 22:01 Tacrolimus (Prograf) 2 mg MoWeFr@0000,1200 ORAL 11/13/18 00:00 12/02/18 00:00 11/27/18 12:38 Tacrolimus (Prograf) 2 mg SuTuThSa@0900,2100 ORAL 11/17/18 21:00 12/17/18 20:59 11/26/18 20:26 Tramadol HCl (Ultram) 50 mg Q4H PRN GT For Moderate pain 11/27/18 15:45 12/04/18 15:31 11/27/18 18:27 Problems: (1) Encephalopathy acute Neurological/Psychiatric: Reports: anxiety, depressed, emotional problems Allergies: Coded Allergies: CEPHALEXIN (Unverified Allergy, Unknown, 02/24/14) SULFAMETHOXAZOLE (Unverified Allergy, Unknown, 02/24/14) TRIMETHOPRIM (Unverified Allergy, Unknown, 02/24/14) Subjective the pt stated that he was in pain mainly around neck area he has very low dose tramadol available to him the pt was explained about waning process. Objective Data Height (Feet): 5 Height (Inches): 5.00 Weight (Pounds): 207 General Appearance: WD/WN, alert - oriented 4, moderate distress Assessment/Plan Problem List: (1) Encephalopathy acute ICD Codes: G93.40 - Encephalopathy, unspecified SNOMED: 24940144, 150889131 Status: stable, progressing Assessment/Plan Zyprexa 2.5mg po qhs haldol IM prn the pt lacks capacity ativan 1mg gt prior to weaning off from vent Jeffrey Lala MD Nov 27, 2018 23:48
[2018-11-28] VITALS: BP 107/48
[2018-11-28] MEDS: NovoLOG Insulin Flexpen SUBQ SCH ×5 (00:01→23:55)
[2018-11-28] MEDS: traMADol 50mg tab GT PRN ×4 (00:07→17:34)
[2018-11-28 04:00] VITALS: BP 110/63
[2018-11-28] MEDS: Acetaminophen 650mg/20.3ml NG PRN (05:31)
[2018-11-28] MEDS: Renvela 800mg Pkt GT SCH ×3 (05:31→21:16)
[2018-11-28 05:49] LABS: HEMATOCRIT 35.2 % (42.0-52.0); LYMPHOCYTES % (AUTO) 15.8 % (20.0-45.0); MEAN CORPUSCULAR VOLUME 81 FL (80-99); MONOCYTES % (AUTO) 6.9 % (1.0-10.0); NEUTROPHILS % (AUTO) 75.3 % (45.0-75.0); PLATELET COUNT 169 K/UL (150-450); RED BLOOD COUNT 4.37 M/UL (4.70-6.10); RED CELL DISTRIBUTION WIDTH 16.8 % (11.6-14.8); WHITE BLOOD COUNT 7.9 K/UL (4.8-10.8)
[2018-11-28 06:00] LABS: ANION GAP 8 mmol/L (5-15); BLOOD UREA NITROGEN 83 mg/dL (7-18); CALCIUM 8.8 MG/DL (8.5-10.1); CARBON DIOXIDE 28 MMOL/L (21-32); CHLORIDE 94 MMOL/L (98-107); CREATININE 8.3 MG/DL (0.55-1.30); SODIUM 130 MMOL/L (136-145)
[2018-11-28 08:00] VITALS: BP 111/84
[2018-11-28] MEDS: Aspirin Baby 81mg GT SCH (09:01)
[2018-11-28 09:06] LABS: ALANINE AMINOTRANSFERASE 13 U/L (12-78); ALKALINE PHOSPHATASE 104 U/L (46-116); ASPARTATE AMINO TRANSFERASE 15 U/L (15-37); BILIRUBIN,DIRECT < 0.1 MG/DL (0.0-0.3); BILIRUBIN,TOTAL 0.3 MG/DL (0.2-1.0); PHOSPHORUS 4.5 MG/DL (2.5-4.9)
--- NOTE | 2018-11-28 10:55 | General Progress Note ---
Assessment/Plan Problem List: (1) Transplant ICD Codes: Z94.9 - Transplanted organ and tissue status, unspecified SNOMED: 495305698 (2) HTN (hypertension) ICD Codes: I10 - Essential (primary) hypertension SNOMED: 94065527 (3) Pacemaker ICD Codes: Z95.0 - Presence of cardiac pacemaker SNOMED: 549995160 (4) CHF (congestive heart failure) ICD Codes: I50.9 - Heart failure, unspecified SNOMED: 43719622 (5) DM (diabetes mellitus) ICD Codes: E11.9 - Type 2 diabetes mellitus without complications SNOMED: 85584317 (6) Foot ulcer ICD Codes: L97.509 - Non-pressure chronic ulcer of other part of unspecified foot with unspecified severity SNOMED: 80443526 Qualifiers: Qualified Codes: L97.511 - Non-pressure chronic ulcer of other part of right foot limited to breakdown of skin (7) ESRD (end stage renal disease) on dialysis ICD Codes: N18.6 - End stage renal disease; Z99.2 - Dependence on renal dialysis SNOMED: 803234640 Assessment/Plan GTF HD per nephro fu labs supportive care Subjective ROS Limited/Unobtainable: No Allergies: Coded Allergies: CEPHALEXIN (Unverified Allergy, Unknown, 02/24/14) SULFAMETHOXAZOLE (Unverified Allergy, Unknown, 02/24/14) TRIMETHOPRIM (Unverified Allergy, Unknown, 02/24/14) Subjective he pulled his NGT again Objective Last 24 Hour Vital Signs Date Time Temp Pulse Resp B/P (MAP) Pulse Ox O2 Delivery O2 Flow Rate FiO2 11/28/18 08:59 72 111/84 11/28/18 08:47 72 19 30 11/28/18 08:00 30 11/28/18 08:00 77 11/28/18 08:00 97.3 79 21 111/84 (93) 99 11/28/18 08:00 Mechanical Ventilator 11/28/18 07:20 Mechanical Ventilator 30 11/28/18 07:20 97 Mechanical Ventilator 30 11/28/18 07:20 97 20 30 11/28/18 06:01 98.4 11/28/18 05:30 88 26 30 11/28/18 04:00 Mechanical Ventilator 11/28/18 04:00 98.4 73 20 110/63 (79) 100 11/28/18 04:00 73 11/28/18 04:00 30 11/28/18 04:00 98.4 73 20 110/63 (79) 100 11/28/18 03:21 73 20 30 11/28/18 01:23 70 19 30 11/28/18 00:37 98.4 11/28/18 00:00 95 11/28/18 00:00 Mechanical Ventilator 11/28/18 00:00 97.6 70 20 107/48 (67) 99 11/28/18 00:00 30 11/27/18 23:12 75 23 30 11/27/18 21:15 74 22 30 11/27/18 20:00 98.4 74 21 109/39 (62) 100 11/27/18 20:00 30 11/27/18 20:00 Mechanical Ventilator 11/27/18 19:30 73 11/27/18 19:24 98 Mechanical Ventilator 30 11/27/18 19:24 73 22 30 11/27/18 19:24 Mechanical Ventilator 30 11/27/18 16:48 70 17 30 11/27/18 16:00 30 11/27/18 16:00 Mechanical Ventilator 11/27/18 16:00 76 11/27/18 16:00 97.2 76 18 127/73 (91) 99 11/27/18 15:05 66 18 30 11/27/18 13:15 80 21 30 11/27/18 12:00 97.6 75 19 163/117 (132) 98 11/27/18 12:00 30 11/27/18 12:00 75 11/27/18 12:00 Mechanical Ventilator 11/27/18 11:25 72 20 30 11/27/18 11:02 70 163/62 Intake and Output 11/27/18 11/28/18 18:59 06:59 Intake Total 650 ml 810 ml Balance 650 ml 810 ml Free Water 200 ml 160 ml IV Total 110 ml Tube Feeding 450 ml 540 ml # Bowel Movements 3 Laboratory Tests 11/28/18 05:00: White Blood Count 7.9, Red Blood Count 4.37L, Hemoglobin 11.0L, Hematocrit 35.2L , Mean Corpuscular Volume 81, Mean Corpuscular Hemoglobin 25.0L, Mean Corpuscular Hemoglobin Concent 31.1L, Red Cell Distribution Width 16.8H, Platelet Count 169, Mean Platelet Volume 8.5, Neutrophils (%) (Auto) 75.3H, Lymphocytes (%) (Auto) 15.8L, Monocytes (%) (Auto) 6.9, Eosinophils (%) (Auto) 0.0, Basophils (%) (Auto) 2.0, Sodium Level 130L, Potassium Level 5.0, Chloride Level 94L, Carbon Dioxide Level 28, Anion Gap 8, Blood Urea Nitrogen 83H, Creatinine 8.3H, Estimat Glomerular Filtration Rate 6.5, Glucose Level 173H, Calcium Level 8.8, Phosphorus Level 4.5, Total Bilirubin 0.3, Direct Bilirubin < 0.1, Aspartate Amino Transf (AST/SGOT) 15, Alanine Aminotransferase (ALT/SGPT ) 13, Alkaline Phosphatase 104, Total Protein 6.1L, Albumin 2.0L Height (Feet): 5 Height (Inches): 5.00 Weight (Pounds): 213 General Appearance: no apparent distress EENT: normal ENT inspection Neck: normal alignment Cardiovascular: normal rate Respiratory/Chest: decreased breath sounds Extremities: non-tender Jorge Escalera MD Nov 28, 2018 10:55
[2018-11-28 12:00] VITALS: BP 154/95
--- NOTE | 2018-11-28 13:09 | Nephrology Progress Note ---
Assessment/Plan Problem List: (1) ESRD (end stage renal disease) on dialysis (2) Foot ulcer (3) CHF (congestive heart failure) (4) Pacemaker (5) Acute respiratory failure Assessment: with Co2 retention Assessment ESRD with high K and SOB on admit Foot ulcer, likely infected High Troponin likely NSTMI Pacer , Pleural effusion s/p CABGS s/p Liver transplant Plan Tylenol RTC pain, and tramadol as needed Now has tracheostomy and PEG Adjust BP meds HD next as refused dialysis 11/27 Antibiotics by ID start tube feeding / hasPEG per cardio and ID Podiatry and Vascular surgical fu PRN tramadol for pain ? DC planning? ALSO COVERING MEDCINE FOR DR BERG Subjective ROS Limited/Unobtainable: No Objective Objective Last 24 Hour Vital Signs Date Time Temp Pulse Resp B/P (MAP) Pulse Ox O2 Delivery O2 Flow Rate FiO2 11/28/18 12:00 97.6 80 21 154/95 (114) 99 11/28/18 12:00 30 11/28/18 12:00 Mechanical Ventilator 11/28/18 12:00 83 11/28/18 11:23 70 20 30 11/28/18 08:59 72 111/84 11/28/18 08:47 72 19 30 11/28/18 08:00 30 11/28/18 08:00 77 11/28/18 08:00 97.3 79 21 111/84 (93) 99 11/28/18 08:00 Mechanical Ventilator 11/28/18 07:20 Mechanical Ventilator 30 11/28/18 07:20 97 Mechanical Ventilator 30 11/28/18 07:20 97 20 30 11/28/18 06:01 98.4 11/28/18 05:30 88 26 30 11/28/18 04:00 Mechanical Ventilator 11/28/18 04:00 98.4 73 20 110/63 (79) 100 11/28/18 04:00 73 11/28/18 04:00 30 11/28/18 04:00 98.4 73 20 110/63 (79) 100 11/28/18 03:21 73 20 30 11/28/18 01:23 70 19 30 11/28/18 00:37 98.4 11/28/18 00:00 95 11/28/18 00:00 Mechanical Ventilator 11/28/18 00:00 97.6 70 20 107/48 (67) 99 11/28/18 00:00 30 11/27/18 23:12 75 23 30 11/27/18 21:15 74 22 30 11/27/18 20:00 98.4 74 21 109/39 (62) 100 11/27/18 20:00 30 11/27/18 20:00 Mechanical Ventilator 11/27/18 19:30 73 11/27/18 19:24 98 Mechanical Ventilator 30 11/27/18 19:24 73 22 30 11/27/18 19:24 Mechanical Ventilator 30 11/27/18 16:48 70 17 30 11/27/18 16:00 30 11/27/18 16:00 Mechanical Ventilator 11/27/18 16:00 76 11/27/18 16:00 97.2 76 18 127/73 (91) 99 11/27/18 15:05 66 18 30 11/27/18 13:15 80 21 30 Intake and Output 11/27/18 11/28/18 19:00 07:00 Intake Total 650 ml 810 ml Balance 650 ml 810 ml Free Water 200 ml 160 ml IV Total 110 ml Tube Feeding 450 ml 540 ml # Bowel Movements 3 Laboratory Tests 11/28/18 05:00: White Blood Count 7.9, Red Blood Count 4.37L, Hemoglobin 11.0L, Hematocrit 35.2L , Mean Corpuscular Volume 81, Mean Corpuscular Hemoglobin 25.0L, Mean Corpuscular Hemoglobin Concent 31.1L, Red Cell Distribution Width 16.8H, Platelet Count 169, Mean Platelet Volume 8.5, Neutrophils (%) (Auto) 75.3H, Lymphocytes (%) (Auto) 15.8L, Monocytes (%) (Auto) 6.9, Eosinophils (%) (Auto) 0.0, Basophils (%) (Auto) 2.0, Sodium Level 130L, Potassium Level 5.0, Chloride Level 94L, Carbon Dioxide Level 28, Anion Gap 8, Blood Urea Nitrogen 83H, Creatinine 8.3H, Estimat Glomerular Filtration Rate 6.5, Glucose Level 173H, Calcium Level 8.8, Phosphorus Level 4.5, Total Bilirubin 0.3, Direct Bilirubin < 0.1, Aspartate Amino Transf (AST/SGOT) 15, Alanine Aminotransferase (ALT/SGPT ) 13, Alkaline Phosphatase 104, Total Protein 6.1L, Albumin 2.0L Height (Feet): 5 Height (Inches): 5.00 Weight (Pounds): 213 EENT: other - Trach Respiratory/Chest: decreased breath sounds Abdomen: soft, other - PEG Objective no other change Nakul Stevens MD Nov 28, 2018 13:09
[2018-11-28] MEDS: Acetaminophen 650mg/20.3ml GT SCH ×2 (13:15→21:14)
--- NOTE | 2018-11-28 14:48 | Infectious Diseases Prog Note ---
Assessment/Plan Problems: (1) Thrush, oral Assessment & Plan: continue local nystatin , and iv micafungin for three weeks empirically . EOT 12/04/18 (2) HCV antibody positive Assessment & Plan: no evidence of active infection, with undetectable viral load , suspect due to previous infection , cleared, S/P liver transplant . (3) Foot ulcer Assessment & Plan: in diabetic patient , with MRSA , S/P vancomycin treatment with HD for two weeks , pending vascular eval and possible surgical debridement. bone scan ruled out osteomyelitis of the heel . follow up with color maker dyer (4) DM (diabetes mellitus) Assessment & Plan: recommend tight glycemic control to keep blood glucose between 100-140 (5) CHF (congestive heart failure) Assessment & Plan: on HD , renal is following, monitor daily weight (6) Encephalopathy acute Assessment & Plan: suspect metabolic, with high urea level, waxing and waning , now improved (7) Severe tongue swelling Assessment & Plan: improving , s/p tracheostomy to protect his airway since respiratory status worsened . now improving, pulmonary is following (8) Pleural effusion Assessment & Plan: recurrent on the right, with lung collapse , S/P thoracentesis X2 with removal of 1.5 cc of clear fluids. PREVIOUS culture were negative with negative cytology Subjective Constitutional: Reports: no symptoms HEENT: Reports: no symptoms Respiratory: Reports: no symptoms Breasts: Reports: no symptoms Cardiovascular: Reports: no symptoms Gastrointestinal/Abdominal: Reports: no symptoms Genitourinary: Reports: no symptoms Neurologic: Reports: no symptoms Psychiatric: Reports: no symptoms Skin: Reports: ulcer Endocrine: Reports: no symptoms Hematologic: Reports: no symptoms Musculoskeletal: Reports: no symptoms Allergies: Coded Allergies: CEPHALEXIN (Unverified Allergy, Unknown, 02/24/14) SULFAMETHOXAZOLE (Unverified Allergy, Unknown, 02/24/14) TRIMETHOPRIM (Unverified Allergy, Unknown, 02/24/14) Subjective he was ok comfortable, has less facial swelling and tongue swelling , awake and responsive, no fever or chills, no significant secretions , no SOB . has less thrush on his tongue Objective Vital Signs Last 24 Hour Vital Signs Date Time Temp Pulse Resp B/P (MAP) Pulse Ox O2 Delivery O2 Flow Rate FiO2 11/28/18 13:19 74 21 30 11/28/18 12:00 97.6 80 21 154/95 (114) 99 4/13/19 12:00 30 11/28/18 12:00 Mechanical Ventilator 11/28/18 12:00 83 11/28/18 11:23 70 20 30 11/28/18 08:59 72 111/84 11/28/18 08:47 72 19 30 11/28/18 08:00 30 11/28/18 08:00 77 11/28/18 08:00 97.3 79 21 111/84 (93) 99 11/28/18 08:00 Mechanical Ventilator 11/28/18 07:20 Mechanical Ventilator 30 11/28/18 07:20 97 Mechanical Ventilator 30 11/28/18 07:20 97 20 30 11/28/18 06:01 98.4 11/28/18 05:30 88 26 30 11/28/18 04:00 Mechanical Ventilator 11/28/18 04:00 98.4 73 20 110/63 (79) 100 11/28/18 04:00 73 11/28/18 04:00 30 11/28/18 04:00 98.4 73 20 110/63 (79) 100 11/28/18 03:21 73 20 30 11/28/18 01:23 70 19 30 11/28/18 00:37 98.4 11/28/18 00:00 95 11/28/18 00:00 Mechanical Ventilator 11/28/18 00:00 97.6 70 20 107/48 (67) 99 11/28/18 00:00 30 11/27/18 23:12 75 23 30 11/27/18 21:15 74 22 30 11/27/18 20:00 98.4 74 21 109/39 (62) 100 11/27/18 20:00 30 11/27/18 20:00 Mechanical Ventilator 11/27/18 19:30 73 11/27/18 19:24 98 Mechanical Ventilator 30 11/27/18 19:24 73 22 30 11/27/18 19:24 Mechanical Ventilator 30 11/27/18 16:48 70 17 30 11/27/18 16:00 30 11/27/18 16:00 Mechanical Ventilator 11/27/18 16:00 76 11/27/18 16:00 97.2 76 18 127/73 (91) 99 11/27/18 15:05 66 18 30 Height (Feet): 5 Height (Inches): 5.00 Weight (Pounds): 213 General Appearance: WD/WN, no acute distress HEENT: normocephalic, atraumatic, anicteric, mucous membranes moist, PERRL, pharynx normal, supple, no JVD, status post trach Respiratory/Chest: chest wall non-tender, lungs clear, normal breath sounds, no respiratory distress, no accessory muscle use Cardiovascular: normal peripheral pulses, normal rate, regular rhythm, no gallop/murmur, no JVD Abdomen: normal bowel sounds, soft, non tender, no organomegaly, non distended , no mass, no scars Genitourinary: normal external genitalia Extremities: no cyanosis, no clubbing Skin: no rash, no lesions, ulcers 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, alert, responsive Lymphatic: no neck adenopathy, no groin adenopathy Musculoskeletal: normal muscle bulk, no effusion Laboratory Tests Test 11/28/18 05:00 White Blood Count 7.9 K/UL (4.8-10.8) Red Blood Count 4.37 M/UL (4.70-6.10) L Hemoglobin 11.0 G/DL (14.2-18.0) L Hematocrit 35.2 % (42.0-52.0) L Mean Corpuscular Volume 81 FL (80-99) Mean Corpuscular Hemoglobin 25.0 PG (27.0-31.0) L Mean Corpuscular Hemoglobin Concent 31.1 G/DL (32.0-36.0) L Red Cell Distribution Width 16.8 % (11.6-14.8) H Platelet Count 169 K/UL (150-450) Mean Platelet Volume 8.5 FL (6.5-10.1) Neutrophils (%) (Auto) 75.3 % (45.0-75.0) H Lymphocytes (%) (Auto) 15.8 % (20.0-45.0) L Monocytes (%) (Auto) 6.9 % (1.0-10.0) Eosinophils (%) (Auto) 0.0 % (0.0-3.0) Basophils (%) (Auto) 2.0 % (0.0-2.0) Sodium Level 130 MMOL/L (136-145) L Potassium Level 5.0 MMOL/L (3.5-5.1) Chloride Level 94 MMOL/L (98-107) L Carbon Dioxide Level 28 MMOL/L (21-32) Anion Gap 8 mmol/L (5-15) Blood Urea Nitrogen 83 mg/dL (7-18) H Creatinine 8.3 MG/DL (0.55-1.30) H Estimat Glomerular Filtration Rate 6.5 mL/min (>60) Glucose Level 173 MG/DL (74-106) H Calcium Level 8.8 MG/DL (8.5-10.1) Phosphorus Level 4.5 MG/DL (2.5-4.9) Total Bilirubin 0.3 MG/DL (0.2-1.0) Direct Bilirubin < 0.1 MG/DL (0.0-0.3) Aspartate Amino Transf (AST/SGOT) 15 U/L (15-37) Alanine Aminotransferase (ALT/SGPT) 13 U/L (12-78) Alkaline Phosphatase 104 U/L (46-116) Total Protein 6.1 G/DL (6.4-8.2) L Albumin 2.0 G/DL (3.4-5.0) L Current Medications Medications (Trade) Dose Ordered Sig/Aleks Route PRN Reason Start Time Stop Time Status Last Admin Dose Admin Acetaminophen (Tylenol) 650 mg Q4H PRN NG Mild Pain/Temp > 100.5 11/12/18 19:00 12/12/18 18:47 11/28/18 05:31 Acetaminophen (Tylenol) 650 mg Q8H GT 11/28/18 13:15 12/28/18 13:14 Amlodipine Besylate (Norvasc) 2.5 mg DAILY GT 11/22/18 09:00 12/22/18 08:59 11/27/18 11:02 Aspirin (ASA) 81 mg DAILY GT 11/20/18 09:00 12/20/18 08:59 11/28/18 09:01 Atorvastatin Calcium (Lipitor) 10 mg BEDTIME NG 11/12/18 21:00 12/02/18 20:59 11/27/18 20:33 Chlorhexidine Gluconate (Glo-Hex 2%) 1 applic DAILY@1999 TOPIC 11/11/18 20:00 12/08/18 19:59 11/27/18 20:33 Collagenase (Santyl) 1 applic DAILY@2100 TOPIC 11/14/18 21:00 12/14/18 20:59 11/26/18 20:28 Dextrose (Dextrose 50%) 25 ml Q30M PRN IV Hypoglycemia 11/11/18 14:45 11/30/18 22:44 Dextrose (Dextrose 50%) 50 ml Q30M PRN IV Hypoglycemia 11/11/18 14:45 11/30/18 22:44 Docusate Sodium (Colace) 100 mg EVERY 8 HOURS PRN GT constipation 11/24/18 18:51 12/20/18 18:50 Hydralazine HCl (Apresoline) 10 mg Q6H PRN IV For High Blood Pressure 11/11/18 14:39 12/11/18 14:38 Insulin Aspart (NovoLOG) EVERY 6 HOURS SUBQ 11/12/18 12:00 12/01/18 06:29 11/28/18 11:54 Lactulose (Cephulac) 20 gm THREE TIMES A DAY PRN GT Constipation 11/24/18 18:51 12/23/18 18:50 Lansoprazole (Prevacid) 30 mg BID GT 11/20/18 09:00 12/20/18 08:59 11/28/18 08:56 Micafungin Sodium 100 mg/Sodium Chloride 110 ml @ 110 mls/hr Q24H IVPB 11/13/18 18:00 12/01/18 17:59 11/27/18 18:29 Nicotine (Nicoderm) 1 patch Q24H TDERMAL 11/11/18 22:15 12/01/18 22:14 11/27/18 22:01 Olanzapine (ZyPREXA) 2.5 mg BEDTIME NG 11/13/18 21:00 12/13/18 20:59 11/27/18 20:33 Olanzapine (ZyPREXA) 2.5 mg Q6H PRN ORAL agitation 11/15/18 23:00 12/15/18 22:59 Polyethylene Glycol (Miralax) 17 gm BEDTIME ORAL 11/23/18 21:00 12/23/18 20:59 11/27/18 20:33 Polyethylene Glycol (Miralax) 17 gm DAILYPRN PRN NG Constipation 11/12/18 19:00 12/11/18 15:29 11/13/18 05:30 Sevelamer Carbonate (Renvela) 800 mg Q8HR GT 11/20/18 14:00 12/20/18 13:59 11/28/18 05:31 Tacrolimus (Prograf) 2 mg MoWeFr@0000,1200 ORAL 11/13/18 00:00 12/02/18 00:00 11/27/18 12:38 Tacrolimus (Prograf) 2 mg SuTuThSa@0900,2100 ORAL 11/17/18 21:00 12/17/18 20:59 11/28/18 08:56 Tramadol HCl (Ultram) 50 mg Q4H PRN GT For Moderate pain 11/27/18 15:45 12/04/18 15:31 11/28/18 13:31 Francois Landis M.D. Nov 28, 2018 14:48
--- NOTE | 2018-11-28 15:37 | Cardiology Progress Note ---
Assessment/Plan Status: stable Assessment/Plan Assessment/Plan Assessment/Plan 1. Troponin leak with no chest pain. Hx of CABG. Due to renal failure. On Coreg 6.25 mg bid, aspirin and Lipitor 2. S/P CABG - outpatient stress test 3. Nonsustained ventricular tachycardia. Hx of old IL and CABG. EF 55%. No Syncope, monitor electrolytes 4. Congestive heart failure. On hemodialysis 5. End-stage renal disease, on hemodialysis per Dr. Stevens 6. Status post right sided Medtronic dual chamber pacemaker with Nl Fx. 7. Right foot ulcer. Antibiotic per Dr. Landis. FU by Dr. Huizar 8. History of liver transplant on Prograf 9. Respiratory failure, ? etiology anaphylaxis. S/P Emergency tracheostomy. Weaned off the vent on T Piece 10. Pleural effusion. FU Dr. Mendoza 11. Dysphagia, S/P PEG Dispo planning [facility] [place] when approved Subjective Cardiovascular: Reports: no symptoms Respiratory: Reports: no symptoms Gastrointestinal/Abdominal: Reports: no symptoms Genitourinary: Reports: no symptoms Subjective [facility] Awaiting placement, referral faxed No acute events, vitals stable, CV stable Objective Last 24 Hour Vital Signs Date Time Temp Pulse Resp B/P (MAP) Pulse Ox O2 Delivery O2 Flow Rate FiO2 11/28/18 15:35 78 11/28/18 15:00 77 20 30 11/28/18 13:19 74 21 30 11/28/18 12:00 97.6 80 21 154/95 (114) 99 11/28/18 12:00 30 11/28/18 12:00 Mechanical Ventilator 11/28/18 12:00 83 11/28/18 11:23 70 20 30 11/28/18 08:59 72 111/84 11/28/18 08:47 72 19 30 11/28/18 08:00 30 11/28/18 08:00 77 11/28/18 08:00 97.3 79 21 111/84 (93) 99 11/28/18 08:00 Mechanical Ventilator 11/28/18 07:20 Mechanical Ventilator 30 11/28/18 07:20 97 Mechanical Ventilator 30 11/28/18 07:20 97 20 30 11/28/18 06:01 98.4 11/28/18 05:30 88 26 30 11/28/18 04:00 Mechanical Ventilator 11/28/18 04:00 98.4 73 20 110/63 (79) 100 11/28/18 04:00 73 11/28/18 04:00 30 11/28/18 04:00 98.4 73 20 110/63 (79) 100 11/28/18 03:21 73 20 30 11/28/18 01:23 70 19 30 11/28/18 00:37 98.4 11/28/18 00:00 95 11/28/18 00:00 Mechanical Ventilator 11/28/18 00:00 97.6 70 20 107/48 (67) 99 11/28/18 00:00 30 11/27/18 23:12 75 23 30 11/27/18 21:15 74 22 30 11/27/18 20:00 98.4 74 21 109/39 (62) 100 11/27/18 20:00 30 11/27/18 20:00 Mechanical Ventilator 11/27/18 19:30 73 11/27/18 19:24 98 Mechanical Ventilator 30 11/27/18 19:24 73 22 30 11/27/18 19:24 Mechanical Ventilator 30 11/27/18 16:48 70 17 30 11/27/18 16:00 30 11/27/18 16:00 Mechanical Ventilator 11/27/18 16:00 76 11/27/18 16:00 97.2 76 18 127/73 (91) 99 General Appearance: no apparent distress, alert EENT: PERRL/EOMI, normal ENT inspection Neck: non-tender, normal alignment, supple, normal inspection Rhythm: NSR Cardiovascular: normal peripheral pulses, normal rate, regular rhythm Respiratory/Chest: chest wall non-tender, normal breath sounds Abdomen: normal bowel sounds, non tender, soft Extremities: normal range of motion, non-tender 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, no motor/sensory deficits Intake and Output 11/27/18 11/28/18 19:00 07:00 Intake Total 650 ml 810 ml Balance 650 ml 810 ml Free Water 200 ml 160 ml IV Total 110 ml Tube Feeding 450 ml 540 ml # Bowel Movements 3 Laboratory Tests Test 11/28/18 05:00 White Blood Count 7.9 K/UL (4.8-10.8) Red Blood Count 4.37 M/UL (4.70-6.10) L Hemoglobin 11.0 G/DL (14.2-18.0) L Hematocrit 35.2 % (42.0-52.0) L Mean Corpuscular Volume 81 FL (80-99) Mean Corpuscular Hemoglobin 25.0 PG (27.0-31.0) L Mean Corpuscular Hemoglobin Concent 31.1 G/DL (32.0-36.0) L Red Cell Distribution Width 16.8 % (11.6-14.8) H Platelet Count 169 K/UL (150-450) Mean Platelet Volume 8.5 FL (6.5-10.1) Neutrophils (%) (Auto) 75.3 % (45.0-75.0) H Lymphocytes (%) (Auto) 15.8 % (20.0-45.0) L Monocytes (%) (Auto) 6.9 % (1.0-10.0) Eosinophils (%) (Auto) 0.0 % (0.0-3.0) Basophils (%) (Auto) 2.0 % (0.0-2.0) Sodium Level 130 MMOL/L (136-145) L Potassium Level 5.0 MMOL/L (3.5-5.1) Chloride Level 94 MMOL/L (98-107) L Carbon Dioxide Level 28 MMOL/L (21-32) Anion Gap 8 mmol/L (5-15) Blood Urea Nitrogen 83 mg/dL (7-18) H Creatinine 8.3 MG/DL (0.55-1.30) H Estimat Glomerular Filtration Rate 6.5 mL/min (>60) Glucose Level 173 MG/DL (74-106) H Calcium Level 8.8 MG/DL (8.5-10.1) Phosphorus Level 4.5 MG/DL (2.5-4.9) Total Bilirubin 0.3 MG/DL (0.2-1.0) Direct Bilirubin < 0.1 MG/DL (0.0-0.3) Aspartate Amino Transf (AST/SGOT) 15 U/L (15-37) Alanine Aminotransferase (ALT/SGPT) 13 U/L (12-78) Alkaline Phosphatase 104 U/L (46-116) Total Protein 6.1 G/DL (6.4-8.2) L Albumin 2.0 G/DL (3.4-5.0) L Dhruv Jin MD Nov 28, 2018 15:37
[2018-11-28 15:43] VITALS: BP 107/55
[2018-11-28] MEDS: Micafungin 100 MG in NS 110 ML IVPB SCH (17:27)
[2018-11-28 20:00] VITALS: BP 147/81
[2018-11-28] MEDS ORDERED: NS 275ml ONE (20:36)
--- NOTE | 2018-11-28 20:46 | Pulmonology Progress Note ---
Assessment/Plan Assessment/Plan 1. Resp failure, hypercapneic 2. End-stage renal disease, on dialysis, status post multiple upper extremity vascular procedures. 3. Coronary artery bypass surgery. 4. Diabetes. 5. Dysphonia, tongue swelling; s/p trach PLAN: not toelrating weaning tolerates feeds nebs and prn suction pt LTAC when bed available Subjective ROS Limited/Unobtainable: Yes Allergies: Coded Allergies: CEPHALEXIN (Unverified Allergy, Unknown, 02/24/14) SULFAMETHOXAZOLE (Unverified Allergy, Unknown, 02/24/14) TRIMETHOPRIM (Unverified Allergy, Unknown, 02/24/14) Subjective awake minimal secretions on vent no cp nv or bleeding not getting oob positive uop tongue swelling resolved Objective Last 24 Hour Vital Signs Date Time Temp Pulse Resp B/P (MAP) Pulse Ox O2 Delivery O2 Flow Rate FiO2 11/28/18 19:03 76 20 40 11/28/18 19:02 96 Mechanical Ventilator 40 11/28/18 19:02 Mechanical Ventilator 40 11/28/18 18:04 97.9 11/28/18 17:19 78 20 30 11/28/18 16:00 Mechanical Ventilator 11/28/18 16:00 30 11/28/18 15:43 97.9 78 18 107/55 (72) 99 11/28/18 15:35 78 11/28/18 15:00 77 20 30 11/28/18 13:19 74 21 30 11/28/18 12:00 97.6 80 21 154/95 (114) 99 11/28/18 12:00 30 11/28/18 12:00 Mechanical Ventilator 11/28/18 12:00 83 11/28/18 11:23 70 20 30 11/28/18 08:59 72 111/84 11/28/18 08:47 72 19 30 11/28/18 08:00 30 11/28/18 08:00 77 11/28/18 08:00 97.3 79 21 111/84 (93) 99 11/28/18 08:00 Mechanical Ventilator 11/28/18 07:20 Mechanical Ventilator 30 11/28/18 07:20 97 Mechanical Ventilator 30 11/28/18 07:20 97 20 30 11/28/18 06:01 98.4 11/28/18 05:30 88 26 30 11/28/18 04:00 Mechanical Ventilator 11/28/18 04:00 98.4 73 20 110/63 (79) 100 11/28/18 04:00 73 11/28/18 04:00 30 11/28/18 04:00 98.4 73 20 110/63 (79) 100 11/28/18 03:21 73 20 30 11/28/18 01:23 70 19 30 11/28/18 00:00 95 11/28/18 00:00 Mechanical Ventilator 11/28/18 00:00 97.6 70 20 107/48 (67) 99 11/28/18 00:00 30 11/27/18 23:12 75 23 30 11/27/18 21:15 74 22 30 Intake and Output 11/27/18 11/28/18 19:00 07:00 Intake Total 650 ml 810 ml Balance 650 ml 810 ml Free Water 200 ml 160 ml IV Total 110 ml Tube Feeding 450 ml 540 ml # Bowel Movements 3 General Appearance: WD/WN Respiratory/Chest: rhonchi Cardiovascular: normal rate, regular rhythm Abdomen: soft, non tender, no organomegaly Extremities: no cyanosis Skin: no rash 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: alert Laboratory Tests 11/28/18 05:00: White Blood Count 7.9, Red Blood Count 4.37L, Hemoglobin 11.0L, Hematocrit 35.2L , Mean Corpuscular Volume 81, Mean Corpuscular Hemoglobin 25.0L, Mean Corpuscular Hemoglobin Concent 31.1L, Red Cell Distribution Width 16.8H, Platelet Count 169, Mean Platelet Volume 8.5, Neutrophils (%) (Auto) 75.3H, Lymphocytes (%) (Auto) 15.8L, Monocytes (%) (Auto) 6.9, Eosinophils (%) (Auto) 0.0, Basophils (%) (Auto) 2.0, Sodium Level 130L, Potassium Level 5.0, Chloride Level 94L, Carbon Dioxide Level 28, Anion Gap 8, Blood Urea Nitrogen 83H, Creatinine 8.3H, Estimat Glomerular Filtration Rate 6.5, Glucose Level 173H, Calcium Level 8.8, Phosphorus Level 4.5, Total Bilirubin 0.3, Direct Bilirubin < 0.1, Aspartate Amino Transf (AST/SGOT) 15, Alanine Aminotransferase (ALT/SGPT ) 13, Alkaline Phosphatase 104, Total Protein 6.1L, Albumin 2.0L Current Medications Medications (Trade) Dose Ordered Sig/Aleks Route PRN Reason Start Time Stop Time Status Last Admin Dose Admin Acetaminophen (Tylenol) 650 mg Q4H PRN NG Mild Pain/Temp > 100.5 11/12/18 19:00 12/12/18 18:47 11/28/18 05:31 Acetaminophen (Tylenol) 650 mg Q8H GT 11/28/18 13:15 12/28/18 13:14 Amlodipine Besylate (Norvasc) 2.5 mg DAILY GT 11/22/18 09:00 12/22/18 08:59 11/27/18 11:02 Aspirin (ASA) 81 mg DAILY GT 11/20/18 09:00 12/20/18 08:59 11/28/18 09:01 Atorvastatin Calcium (Lipitor) 10 mg BEDTIME NG 11/12/18 21:00 12/02/18 20:59 11/27/18 20:33 Chlorhexidine Gluconate (Glo-Hex 2%) 1 applic DAILY@1999 TOPIC 11/11/18 20:00 12/08/18 19:59 11/27/18 20:33 Collagenase (Santyl) 1 applic DAILY@2099 TOPIC 11/14/18 21:00 12/14/18 20:59 11/26/18 20:28 Dextrose (Dextrose 50%) 25 ml Q30M PRN IV Hypoglycemia 11/11/18 14:45 11/30/18 22:44 Dextrose (Dextrose 50%) 50 ml Q30M PRN IV Hypoglycemia 11/11/18 14:45 11/30/18 22:44 Docusate Sodium (Colace) 100 mg EVERY 8 HOURS PRN GT constipation 11/24/18 18:51 12/20/18 18:50 Hydralazine HCl (Apresoline) 10 mg Q6H PRN IV For High Blood Pressure 11/11/18 14:39 12/11/18 14:38 Insulin Aspart (NovoLOG) EVERY 6 HOURS SUBQ 11/12/18 12:00 12/01/18 06:29 11/28/18 17:27 Lactulose (Cephulac) 20 gm THREE TIMES A DAY PRN GT Constipation 11/24/18 18:51 12/23/18 18:50 Lansoprazole (Prevacid) 30 mg BID GT 11/20/18 09:00 12/20/18 08:59 11/28/18 17:27 Micafungin Sodium 100 mg/Sodium Chloride 110 ml @ 110 mls/hr Q24H IVPB 11/13/18 18:00 12/01/18 17:59 11/28/18 17:27 Nicotine (Nicoderm) 1 patch Q24H TDERMAL 11/11/18 22:15 12/01/18 22:14 11/27/18 22:01 Olanzapine (ZyPREXA) 2.5 mg BEDTIME NG 11/13/18 21:00 12/13/18 20:59 11/27/18 20:33 Olanzapine (ZyPREXA) 2.5 mg Q6H PRN ORAL agitation 11/15/18 23:00 12/15/18 22:59 Polyethylene Glycol (Miralax) 17 gm BEDTIME ORAL 11/23/18 21:00 12/23/18 20:59 11/27/18 20:33 Polyethylene Glycol (Miralax) 17 gm DAILYPRN PRN NG Constipation 11/12/18 19:00 12/11/18 15:29 11/13/18 05:30 Sevelamer Carbonate (Renvela) 800 mg Q8HR GT 11/20/18 14:00 12/20/18 13:59 11/28/18 05:31 Tacrolimus (Prograf) 2 mg MoWeFr@0000,1200 ORAL 11/13/18 00:00 12/02/18 00:00 11/27/18 12:38 Tacrolimus (Prograf) 2 mg SuTuThSa@0900,2100 ORAL 11/17/18 21:00 12/17/18 20:59 11/28/18 08:56 Tramadol HCl (Ultram) 50 mg Q4H PRN GT For Moderate pain 11/27/18 15:45 12/04/18 15:31 11/28/18 17:34 Christina Perez DO Nov 28, 2018 20:46
[2018-11-28] MEDS: Dyna-Hex 2% Top Sol 2oz TOPIC SCH (21:15)
[2018-11-28] MEDS: Miralax 17gm pkt ORAL SCH (21:15)
[2018-11-28] MEDS: OLANZapine 2.5mg tab NG SCH (21:15)
[2018-11-29] VITALS: BP 132/77
[2018-11-29 04:00] VITALS: BP 126/68
[2018-11-29] MEDS: Acetaminophen 650mg/20.3ml GT SCH ×4 (05:39→20:59)
[2018-11-29] MEDS: Renvela 800mg Pkt GT SCH ×3 (06:07→21:39)
[2018-11-29] MEDS: traMADol 50mg tab GT PRN ×3 (06:07→21:40)
[2018-11-29] MEDS: NovoLOG Insulin Flexpen SUBQ SCH ×3 (06:13→18:01)
[2018-11-29 08:00] VITALS: BP 142/74
[2018-11-29] MEDS: Aspirin Baby 81mg GT SCH (08:10)
--- NOTE | 2018-11-29 11:02 | General Progress Note ---
Assessment/Plan Problem List: (1) Transplant ICD Codes: Z94.9 - Transplanted organ and tissue status, unspecified SNOMED: 712019332 (2) HTN (hypertension) ICD Codes: I10 - Essential (primary) hypertension SNOMED: 52238365 (3) Pacemaker ICD Codes: Z95.0 - Presence of cardiac pacemaker SNOMED: 475787791 (4) CHF (congestive heart failure) ICD Codes: I50.9 - Heart failure, unspecified SNOMED: 59985332 (5) DM (diabetes mellitus) ICD Codes: E11.9 - Type 2 diabetes mellitus without complications SNOMED: 82832954 (6) Foot ulcer ICD Codes: L97.509 - Non-pressure chronic ulcer of other part of unspecified foot with unspecified severity SNOMED: 84917758 Qualifiers: Qualified Codes: L97.511 - Non-pressure chronic ulcer of other part of right foot limited to breakdown of skin (7) ESRD (end stage renal disease) on dialysis ICD Codes: N18.6 - End stage renal disease; Z99.2 - Dependence on renal dialysis SNOMED: 581426007 Assessment/Plan GTF HD per nephro fu labs supportive care Subjective ROS Limited/Unobtainable: No Allergies: Coded Allergies: CEPHALEXIN (Unverified Allergy, Unknown, 02/24/14) SULFAMETHOXAZOLE (Unverified Allergy, Unknown, 02/24/14) TRIMETHOPRIM (Unverified Allergy, Unknown, 02/24/14) Subjective he pulled his NGT again Objective Last 24 Hour Vital Signs Date Time Temp Pulse Resp B/P (MAP) Pulse Ox O2 Delivery O2 Flow Rate FiO2 11/29/18 09:05 71 17 40 11/29/18 08:10 75 142/74 11/29/18 08:00 73 11/29/18 08:00 97.7 75 19 142/74 (96) 99 11/29/18 08:00 40 11/29/18 08:00 Mechanical Ventilator 11/29/18 06:55 78 19 40 11/29/18 06:54 98 Mechanical Ventilator 40 11/29/18 06:53 Mechanical Ventilator 40 11/29/18 05:15 74 21 40 11/29/18 04:00 97.9 79 26 126/68 (87) 100 11/29/18 04:00 Mechanical Ventilator 11/29/18 04:00 74 11/29/18 04:00 30 11/29/18 03:04 83 24 40 11/29/18 01:00 77 22 40 11/29/18 00:00 98.2 72 18 132/77 (95) 99 11/29/18 00:00 30 11/29/18 00:00 Mechanical Ventilator 11/28/18 23:28 79 11/28/18 22:41 79 20 40 11/28/18 21:17 74 19 40 11/28/18 20:00 Mechanical Ventilator 11/28/18 20:00 30 11/28/18 20:00 98.6 80 23 147/81 (103) 100 11/28/18 20:00 79 11/28/18 19:03 76 20 40 11/28/18 19:02 96 Mechanical Ventilator 40 11/28/18 19:02 Mechanical Ventilator 40 11/28/18 18:04 97.9 11/28/18 17:19 78 20 30 11/28/18 16:00 Mechanical Ventilator 11/28/18 16:00 30 11/28/18 15:43 97.9 78 18 107/55 (72) 99 11/28/18 15:35 78 11/28/18 15:00 77 20 30 11/28/18 13:19 74 21 30 11/28/18 12:00 97.6 80 21 154/95 (114) 99 11/28/18 12:00 30 11/28/18 12:00 Mechanical Ventilator 11/28/18 12:00 83 11/28/18 11:23 70 20 30 Intake and Output 11/28/18 11/29/18 18:59 06:59 Intake Total 760 ml 690 ml Output Total 2000 ml Balance -1240 ml 690 ml Free Water 110 ml 150 ml IV Total 110 ml Tube Feeding 540 ml 540 ml Hemodialysis UF 2000 ml # Bowel Movements 3 Height (Feet): 5 Height (Inches): 5.00 Weight (Pounds): 208 General Appearance: no apparent distress EENT: normal ENT inspection Neck: supple Cardiovascular: normal rate Respiratory/Chest: decreased breath sounds Abdomen: normal bowel sounds, non tender, soft Extremities: non-tender Jorge Escalera MD Nov 29, 2018 11:02
--- NOTE | 2018-11-29 11:17 | Nephrology Progress Note ---
Assessment/Plan Problem List: (1) ESRD (end stage renal disease) on dialysis (2) Foot ulcer (3) CHF (congestive heart failure) (4) Pacemaker (5) Acute respiratory failure Assessment: with Co2 retention Assessment ESRD with high K and SOB on admit Foot ulcer, likely infected High Troponin likely NSTMI Pacer , Pleural effusion s/p CABGS s/p Liver transplant Plan Tylenol RTC pain, and tramadol as needed Now has tracheostomy and PEG Adjust BP meds HD next Antibiotics by ID start tube feeding / hasPEG per cardio and ID Podiatry and Vascular surgical fu PRN tramadol for pain ? DC planning? ALSO COVERING MEDCINE FOR DR BERG Subjective ROS Limited/Unobtainable: No Constitutional: Reports: malaise Objective Objective Last 24 Hour Vital Signs Date Time Temp Pulse Resp B/P (MAP) Pulse Ox O2 Delivery O2 Flow Rate FiO2 11/29/18 09:05 71 17 40 11/29/18 08:10 75 142/74 11/29/18 08:00 73 11/29/18 08:00 97.7 75 19 142/74 (96) 99 11/29/18 08:00 40 11/29/18 08:00 Mechanical Ventilator 11/29/18 06:55 78 19 40 11/29/18 06:54 98 Mechanical Ventilator 40 11/29/18 06:53 Mechanical Ventilator 40 11/29/18 05:15 74 21 40 11/29/18 04:00 97.9 79 26 126/68 (87) 100 11/29/18 04:00 Mechanical Ventilator 11/29/18 04:00 74 11/29/18 04:00 30 11/29/18 03:04 83 24 40 11/29/18 01:00 77 22 40 11/29/18 00:00 98.2 72 18 132/77 (95) 99 11/29/18 00:00 30 11/29/18 00:00 Mechanical Ventilator 11/28/18 23:28 79 11/28/18 22:41 79 20 40 11/28/18 21:17 74 19 40 11/28/18 20:00 Mechanical Ventilator 11/28/18 20:00 30 11/28/18 20:00 98.6 80 23 147/81 (103) 100 11/28/18 20:00 79 11/28/18 19:03 76 20 40 4/13/19 19:02 96 Mechanical Ventilator 40 11/28/18 19:02 Mechanical Ventilator 40 11/28/18 18:04 97.9 11/28/18 17:19 78 20 30 11/28/18 16:00 Mechanical Ventilator 11/28/18 16:00 30 11/28/18 15:43 97.9 78 18 107/55 (72) 99 11/28/18 15:35 78 11/28/18 15:00 77 20 30 11/28/18 13:19 74 21 30 11/28/18 12:00 97.6 80 21 154/95 (114) 99 11/28/18 12:00 30 11/28/18 12:00 Mechanical Ventilator 11/28/18 12:00 83 11/28/18 11:23 70 20 30 Intake and Output 11/28/18 11/29/18 18:59 06:59 Intake Total 760 ml 690 ml Output Total 2000 ml Balance -1240 ml 690 ml Free Water 110 ml 150 ml IV Total 110 ml Tube Feeding 540 ml 540 ml Hemodialysis UF 2000 ml # Bowel Movements 3 Height (Feet): 5 Height (Inches): 5.00 Weight (Pounds): 208 General Appearance: no apparent distress Objective no other change Nakul Stevens MD Nov 29, 2018 11:17
--- NOTE | 2018-11-29 11:27 | Cardiology Progress Note ---
Assessment/Plan Status: stable Assessment/Plan Assessment/Plan Assessment/Plan 1. Troponin leak with no chest pain. Hx of CABG. Due to renal failure. On Coreg 6.25 mg bid, aspirin and Lipitor 2. S/P CABG - outpatient stress test 3. Nonsustained ventricular tachycardia. Hx of old [place] and CABG. EF 55%. No Syncope, monitor electrolytes 4. Congestive heart failure. On hemodialysis 5. End-stage renal disease, on hemodialysis per Dr. Stevens 6. Status post right sided Medtronic dual chamber pacemaker with Nl Fx. 7. Right foot ulcer. Antibiotic per Dr. Landis. FU by Dr. Huizar 8. History of liver transplant on Prograf 9. Respiratory failure, ? etiology anaphylaxis. S/P Emergency tracheostomy. Weaned off the vent on T Piece 10. Pleural effusion. FU Dr. eMndoza 11. Dysphagia, S/P PEG Dispo planning [place] when approved Subjective Cardiovascular: Reports: no symptoms Respiratory: Reports: no symptoms Gastrointestinal/Abdominal: Reports: no symptoms Genitourinary: Reports: no symptoms Subjective C[facility]AGE [facility] Awaiting placement, referral faxed No acute events, vitals stable, CV stable Objective Last 24 Hour Vital Signs Date Time Temp Pulse Resp B/P (MAP) Pulse Ox O2 Delivery O2 Flow Rate FiO2 11/29/18 11:24 86 19 40 11/29/18 09:05 71 17 40 11/29/18 08:10 75 142/74 11/29/18 08:00 73 11/29/18 08:00 97.7 75 19 142/74 (96) 99 11/29/18 08:00 40 11/29/18 08:00 Mechanical Ventilator 11/29/18 06:55 78 19 40 11/29/18 06:54 98 Mechanical Ventilator 40 11/29/18 06:53 Mechanical Ventilator 40 11/29/18 05:15 74 21 40 11/29/18 04:00 97.9 79 26 126/68 (87) 100 11/29/18 04:00 Mechanical Ventilator 11/29/18 04:00 74 11/29/18 04:00 30 11/29/18 03:04 83 24 40 11/29/18 01:00 77 22 40 11/29/18 00:00 98.2 72 18 132/77 (95) 99 11/29/18 00:00 30 11/29/18 00:00 Mechanical Ventilator 11/28/18 23:28 79 11/28/18 22:41 79 20 40 11/28/18 21:17 74 19 40 11/28/18 20:00 Mechanical Ventilator 11/28/18 20:00 30 11/28/18 20:00 98.6 80 23 147/81 (103) 100 11/28/18 20:00 79 11/28/18 19:03 76 20 40 11/28/18 19:02 96 Mechanical Ventilator 40 11/28/18 19:02 Mechanical Ventilator 40 11/28/18 18:04 97.9 11/28/18 17:19 78 20 30 11/28/18 16:00 Mechanical Ventilator 11/28/18 16:00 30 11/28/18 15:43 97.9 78 18 107/55 (72) 99 11/28/18 15:35 78 11/28/18 15:00 77 20 30 11/28/18 13:19 74 21 30 11/28/18 12:00 97.6 80 21 154/95 (114) 99 11/28/18 12:00 30 11/28/18 12:00 Mechanical Ventilator 11/28/18 12:00 83 General Appearance: no apparent distress EENT: PERRL/EOMI, normal ENT inspection, TMs normal, pharynx normal Neck: non-tender, normal alignment, normal inspection, no JVD Rhythm: NSR Cardiovascular: normal peripheral pulses, normal rate, regular rhythm Respiratory/Chest: chest wall non-tender, lungs clear, no respiratory distress Abdomen: non tender, soft Extremities: normal range of motion, non-tender, normal inspection Neurologic: 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
[2018-11-29 12:00] VITALS: BP 152/86
[2018-11-29 16:00] VITALS: BP 160/85
--- NOTE | 2018-11-29 16:24 | Infectious Diseases Prog Note ---
Assessment/Plan Problems: (1) Thrush, oral Assessment & Plan: continue local nystatin , and iv micafungin for three weeks empirically . EOT 12/04/18 (2) HCV antibody positive Assessment & Plan: no evidence of active infection, with undetectable viral load , suspect due to previous infection , cleared, S/P liver transplant . (3) Foot ulcer Assessment & Plan: in diabetic patient , with MRSA , S/P vancomycin treatment with HD for two weeks , pending vascular eval and possible surgical debridement. bone scan ruled out osteomyelitis of the heel . 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 now improving, pulmonary is following (8) Pleural effusion Assessment & Plan: recurrent on the right, with lung collapse , S/P thoracentesis X2 with removal of 1.5 cc of clear fluids. PREVIOUS culture were negative with negative cytology Subjective Constitutional: Reports: no symptoms HEENT: Reports: no symptoms Respiratory: Reports: no symptoms Breasts: Reports: no symptoms Cardiovascular: Reports: no symptoms Gastrointestinal/Abdominal: Reports: no symptoms Genitourinary: Reports: no symptoms Neurologic: Reports: no symptoms Psychiatric: Reports: no symptoms Skin: Reports: no symptoms Endocrine: Reports: no symptoms Hematologic: Reports: no symptoms Musculoskeletal: Reports: no symptoms Allergies: Coded Allergies: CEPHALEXIN (Unverified Allergy, Unknown, 02/24/14) SULFAMETHOXAZOLE (Unverified Allergy, Unknown, 02/24/14) TRIMETHOPRIM (Unverified Allergy, Unknown, 02/24/14) Subjective he was ok comfortable, has less facial swelling and tongue swelling , awake and responsive, no fever or chills, no significant secretions , no SOB . has less thrush on his tongue Objective Vital Signs Last 24 Hour Vital Signs Date Time Temp Pulse Resp B/P (MAP) Pulse Ox O2 Delivery O2 Flow Rate FiO2 11/29/18 16:00 75 11/29/18 16:00 Mechanical Ventilator 11/29/18 16:00 40 11/29/18 15:16 81 20 40 11/29/18 12:47 84 22 40 11/29/18 12:00 Mechanical Ventilator 11/29/18 12:00 40 11/29/18 12:00 85 11/29/18 12:00 96.6 88 22 152/86 (108) 99 11/29/18 11:24 86 19 40 11/29/18 09:05 71 17 40 11/29/18 08:10 75 142/74 11/29/18 08:00 73 11/29/18 08:00 97.7 75 19 142/74 (96) 99 11/29/18 08:00 40 11/29/18 08:00 Mechanical Ventilator 11/29/18 06:55 78 19 40 11/29/18 06:54 98 Mechanical Ventilator 40 11/29/18 06:53 Mechanical Ventilator 40 11/29/18 05:15 74 21 40 11/29/18 04:00 97.9 79 26 126/68 (87) 100 11/29/18 04:00 Mechanical Ventilator 11/29/18 04:00 74 11/29/18 04:00 30 11/29/18 03:04 83 24 40 11/29/18 01:00 77 22 40 11/29/18 00:00 98.2 72 18 132/77 (95) 99 11/29/18 00:00 30 11/29/18 00:00 Mechanical Ventilator 11/28/18 23:28 79 11/28/18 22:41 79 20 40 11/28/18 21:17 74 19 40 11/28/18 20:00 Mechanical Ventilator 11/28/18 20:00 30 11/28/18 20:00 98.6 80 23 147/81 (103) 100 11/28/18 20:00 79 11/28/18 19:03 76 20 40 11/28/18 19:02 96 Mechanical Ventilator 40 11/28/18 19:02 Mechanical Ventilator 40 11/28/18 18:04 97.9 11/28/18 17:19 78 20 30 Height (Feet): 5 Height (Inches): 5.00 Weight (Pounds): 208 General Appearance: WD/WN, no acute distress HEENT: normocephalic, atraumatic, anicteric, mucous membranes moist, PERRL, pharynx normal Respiratory/Chest: chest wall non-tender, lungs clear, normal breath sounds, no respiratory distress, no accessory muscle use Cardiovascular: normal peripheral pulses, normal rate, regular rhythm, no gallop/murmur, no JVD Abdomen: normal bowel sounds, soft, non tender, no organomegaly, non distended , no mass, no scars Genitourinary: normal external genitalia Extremities: no cyanosis, no clubbing Skin: no rash, no lesions, no ulcers 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: 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 modeler 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 normal, no motor/sensory deficits, abnormal gait, alert, oriented x 3, responsive Lymphatic: no neck adenopathy, no groin adenopathy Musculoskeletal: normal muscle bulk, no effusion Current Medications Medications (Trade) Dose Ordered Sig/Aleks Route PRN Reason Start Time Stop Time Status Last Admin Dose Admin Acetaminophen (Tylenol) 650 mg Q4H PRN NG Mild Pain/Temp > 100.5 11/12/18 19:00 12/12/18 18:47 11/28/18 05:31 Acetaminophen (Tylenol) 650 mg Q8H GT 11/28/18 13:15 12/28/18 13:14 11/29/18 05:39 Amlodipine Besylate (Norvasc) 2.5 mg DAILY GT 11/22/18 09:00 12/22/18 08:59 11/29/18 08:10 Aspirin (ASA) 81 mg DAILY GT 11/20/18 09:00 12/20/18 08:59 11/29/18 08:10 Atorvastatin Calcium (Lipitor) 10 mg BEDTIME NG 11/12/18 21:00 12/02/18 20:59 11/28/18 21:15 Chlorhexidine Gluconate (Glo-Hex 2%) 1 applic DAILY@1999 TOPIC 11/11/18 20:00 12/08/18 19:59 11/28/18 21:15 Collagenase (Santyl) 1 applic DAILY@2099 TOPIC 11/14/18 21:00 12/14/18 20:59 11/28/18 21:14 Dextrose (Dextrose 50%) 25 ml Q30M PRN IV Hypoglycemia 11/11/18 14:45 11/30/18 22:44 Dextrose (Dextrose 50%) 50 ml Q30M PRN IV Hypoglycemia 11/11/18 14:45 11/30/18 22:44 Docusate Sodium (Colace) 100 mg EVERY 8 HOURS PRN GT constipation 11/24/18 18:51 12/20/18 18:50 Hydralazine HCl (Apresoline) 10 mg Q6H PRN IV For High Blood Pressure 11/11/18 14:39 12/11/18 14:38 Insulin Aspart (NovoLOG) EVERY 6 HOURS SUBQ 11/12/18 12:00 12/01/18 06:29 11/29/18 12:28 Lactulose (Cephulac) 20 gm THREE TIMES A DAY PRN GT Constipation 11/24/18 18:51 12/23/18 18:50 Lansoprazole (Prevacid) 30 mg BID GT 11/20/18 09:00 12/20/18 08:59 11/29/18 08:09 Micafungin Sodium 100 mg/Sodium Chloride 110 ml @ 110 mls/hr Q24H IVPB 11/13/18 18:00 12/01/18 17:59 11/28/18 17:27 Nicotine (Nicoderm) 1 patch Q24H TDERMAL 11/11/18 22:15 12/01/18 22:14 11/28/18 22:46 Nystatin (Nystatin) 5 ml TID ORAL 11/29/18 18:00 12/06/18 17:59 Olanzapine (ZyPREXA) 2.5 mg BEDTIME NG 11/13/18 21:00 12/13/18 20:59 11/28/18 21:15 Olanzapine (ZyPREXA) 2.5 mg Q6H PRN ORAL agitation 11/15/18 23:00 12/15/18 22:59 Polyethylene Glycol (Miralax) 17 gm BEDTIME ORAL 11/23/18 21:00 12/23/18 20:59 11/28/18 21:15 Polyethylene Glycol (Miralax) 17 gm DAILYPRN PRN NG Constipation 11/12/18 19:00 12/11/18 15:29 11/13/18 05:30 Sevelamer Carbonate (Renvela) 800 mg Q8HR GT 11/20/18 14:00 12/20/18 13:59 11/29/18 13:55 Tacrolimus (Prograf) 2 mg MoWeFr@0000,1200 ORAL 11/13/18 00:00 12/02/18 00:00 11/27/18 12:38 Tacrolimus (Prograf) 2 mg SuTuThSa@0900,2100 ORAL 11/17/18 21:00 12/17/18 20:59 11/29/18 08:09 Tramadol HCl (Ultram) 50 mg Q4H PRN GT For Moderate pain 11/27/18 15:45 12/04/18 15:31 11/29/18 06:07 Francois Landis M.D. Nov 29, 2018 16:24
[2018-11-29] MEDS ORDERED: NS 275ml ONE (16:38)
[2018-11-29] MEDS: Nystatin Susp 500,000 units/5ml ORAL SCH (17:59)
[2018-11-29] MEDS: Micafungin 100 MG in NS 110 ML IVPB SCH (17:59)
--- NOTE | 2018-11-29 18:56 | Pulmonology Progress Note ---
Assessment/Plan Assessment/Plan 1. Resp failure, hypercapneic 2. End-stage renal disease, on dialysis, status post multiple upper extremity vascular procedures. 3. Coronary artery bypass surgery. 4. Diabetes. 5. Dysphonia, tongue swelling; s/p trach PLAN: not tolerating weaning straight to TC, would recommend IMV or CPAP wean prior to TC trials If unable to tolerate, consider ENT eval of tracheostomy, placement etc tolerates feeds nebs and prn suction pt LTAC when bed available Subjective ROS Limited/Unobtainable: Yes Allergies: Coded Allergies: CEPHALEXIN (Unverified Allergy, Unknown, 02/24/14) SULFAMETHOXAZOLE (Unverified Allergy, Unknown, 02/24/14) TRIMETHOPRIM (Unverified Allergy, Unknown, 02/24/14) Subjective awake minimal secretions on vent, did not tolerate TC today no cp nv or bleeding not getting oob positive uop Objective Last 24 Hour Vital Signs Date Time Temp Pulse Resp B/P (MAP) Pulse Ox O2 Delivery O2 Flow Rate FiO2 11/29/18 16:55 84 21 40 11/29/18 16:00 97.8 81 26 160/85 (110) 100 11/29/18 16:00 75 11/29/18 16:00 Mechanical Ventilator 11/29/18 16:00 40 11/29/18 15:16 81 20 40 11/29/18 12:47 84 22 40 11/29/18 12:00 Mechanical Ventilator 11/29/18 12:00 40 11/29/18 12:00 85 11/29/18 12:00 96.6 88 22 152/86 (108) 99 11/29/18 11:24 86 19 40 11/29/18 09:05 71 17 40 11/29/18 08:10 75 142/74 11/29/18 08:00 73 11/29/18 08:00 97.7 75 19 142/74 (96) 99 11/29/18 08:00 40 11/29/18 08:00 Mechanical Ventilator 11/29/18 06:55 78 19 40 11/29/18 06:54 98 Mechanical Ventilator 40 11/29/18 06:53 Mechanical Ventilator 40 11/29/18 05:15 74 21 40 11/29/18 04:00 97.9 79 26 126/68 (87) 100 11/29/18 04:00 Mechanical Ventilator 11/29/18 04:00 74 11/29/18 04:00 30 11/29/18 03:04 83 24 40 11/29/18 01:00 77 22 40 11/29/18 00:00 98.2 72 18 132/77 (95) 99 11/29/18 00:00 30 11/29/18 00:00 Mechanical Ventilator 11/28/18 23:28 79 11/28/18 22:41 79 20 40 11/28/18 21:17 74 19 40 11/28/18 20:00 Mechanical Ventilator 11/28/18 20:00 30 11/28/18 20:00 98.6 80 23 147/81 (103) 100 11/28/18 20:00 79 11/28/18 19:03 76 20 40 11/28/18 19:02 96 Mechanical Ventilator 40 11/28/18 19:02 Mechanical Ventilator 40 Intake and Output 11/28/18 11/29/18 19:00 07:00 Intake Total 760 ml 690 ml Output Total 2000 ml Balance -1240 ml 690 ml Free Water 110 ml 150 ml IV Total 110 ml Tube Feeding 540 ml 540 ml Hemodialysis UF 2000 ml # Bowel Movements 3 General Appearance: WD/WN HEENT: status post trach Respiratory/Chest: lungs clear, no respiratory distress Cardiovascular: normal rate, regular rhythm Abdomen: soft, non tender, no organomegaly Extremities: no clubbing 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: oriented x 3, responsive Lymphatic: no neck adenopathy Current Medications Medications (Trade) Dose Ordered Sig/Aleks Route PRN Reason Start Time Stop Time Status Last Admin Dose Admin Acetaminophen (Tylenol) 650 mg Q4H PRN NG Mild Pain/Temp > 100.5 11/12/18 19:00 12/12/18 18:47 11/28/18 05:31 Acetaminophen (Tylenol) 650 mg Q8H GT 11/28/18 13:15 12/28/18 13:14 11/29/18 05:39 Amlodipine Besylate (Norvasc) 2.5 mg DAILY GT 11/22/18 09:00 12/22/18 08:59 11/29/18 08:10 Aspirin (ASA) 81 mg DAILY GT 11/20/18 09:00 12/20/18 08:59 11/29/18 08:10 Atorvastatin Calcium (Lipitor) 10 mg BEDTIME NG 11/12/18 21:00 12/02/18 20:59 11/28/18 21:15 Chlorhexidine Gluconate (Glo-Hex 2%) 1 applic DAILY@1999 TOPIC 11/11/18 20:00 12/08/18 19:59 11/28/18 21:15 Collagenase (Santyl) 1 applic DAILY@2099 TOPIC 11/14/18 21:00 12/14/18 20:59 11/28/18 21:14 Dextrose (Dextrose 50%) 25 ml Q30M PRN IV Hypoglycemia 11/11/18 14:45 11/30/18 22:44 Dextrose (Dextrose 50%) 50 ml Q30M PRN IV Hypoglycemia 11/11/18 14:45 11/30/18 22:44 Docusate Sodium (Colace) 100 mg EVERY 8 HOURS PRN GT constipation 11/24/18 18:51 12/20/18 18:50 Hydralazine HCl (Apresoline) 10 mg Q6H PRN IV For High Blood Pressure 11/11/18 14:39 12/11/18 14:38 Insulin Aspart (NovoLOG) EVERY 6 HOURS SUBQ 11/12/18 12:00 12/01/18 06:29 11/29/18 18:01 Lactulose (Cephulac) 20 gm THREE TIMES A DAY PRN GT Constipation 11/24/18 18:51 12/23/18 18:50 Lansoprazole (Prevacid) 30 mg BID GT 11/20/18 09:00 12/20/18 08:59 11/29/18 17:58 Micafungin Sodium 100 mg/Sodium Chloride 110 ml @ 110 mls/hr Q24H IVPB 11/13/18 18:00 12/01/18 17:59 11/29/18 17:59 Nicotine (Nicoderm) 1 patch Q24H TDERMAL 11/11/18 22:15 12/01/18 22:14 11/28/18 22:46 Nystatin (Nystatin) 5 ml TID ORAL 11/29/18 18:00 12/06/18 17:59 11/29/18 17:59 Olanzapine (ZyPREXA) 2.5 mg BEDTIME NG 11/13/18 21:00 12/13/18 20:59 11/28/18 21:15 Olanzapine (ZyPREXA) 2.5 mg Q6H PRN ORAL agitation 11/15/18 23:00 12/15/18 22:59 Polyethylene Glycol (Miralax) 17 gm BEDTIME ORAL 11/23/18 21:00 12/23/18 20:59 11/28/18 21:15 Polyethylene Glycol (Miralax) 17 gm DAILYPRN PRN NG Constipation 11/12/18 19:00 12/11/18 15:29 11/13/18 05:30 Sevelamer Carbonate (Renvela) 800 mg Q8HR GT 11/20/18 14:00 12/20/18 13:59 11/29/18 13:55 Tacrolimus (Prograf) 2 mg MoWeFr@0000,1200 ORAL 11/13/18 00:00 12/02/18 00:00 11/27/18 12:38 Tacrolimus (Prograf) 2 mg SuTuThSa@0900,2100 ORAL 11/17/18 21:00 12/17/18 20:59 11/29/18 08:09 Tramadol HCl (Ultram) 50 mg Q4H PRN GT For Moderate pain 11/27/18 15:45 12/04/18 15:31 11/29/18 18:00 Christina Perez DO Nov 29, 2018 18:56
[2018-11-29 20:00] VITALS: BP 143/73
[2018-11-29] MEDS: OLANZapine 2.5mg tab NG SCH (20:50)
[2018-11-29] MEDS: Miralax 17gm pkt ORAL SCH (20:50)
[2018-11-29] MEDS: Dyna-Hex 2% Top Sol 2oz TOPIC SCH (20:50)
[2018-11-30] VITALS: BP 138/70
[2018-11-30] MEDS: NovoLOG Insulin Flexpen SUBQ SCH ×4 (00:08→18:13)
[2018-11-30] MEDS: traMADol 50mg tab GT PRN ×4 (02:14→22:16)
[2018-11-30 04:00] VITALS: BP 133/68
[2018-11-30] MEDS: Renvela 800mg Pkt GT SCH ×3 (05:52→22:15)
[2018-11-30] MEDS: Acetaminophen 650mg/20.3ml GT SCH ×3 (05:52→21:11)
[2018-11-30 08:00] VITALS: BP 97/31
[2018-11-30] MEDS: Nystatin Susp 500,000 units/5ml ORAL SCH ×3 (08:47→18:05)
[2018-11-30] MEDS: Aspirin Baby 81mg GT SCH (08:47)
--- NOTE | 2018-11-30 09:43 | General Progress Note ---
Assessment/Plan Problem List: (1) Transplant ICD Codes: Z94.9 - Transplanted organ and tissue status, unspecified SNOMED: 835201588 (2) HTN (hypertension) ICD Codes: I10 - Essential (primary) hypertension SNOMED: 40549120 (3) Pacemaker ICD Codes: Z95.0 - Presence of cardiac pacemaker SNOMED: 863065105 (4) CHF (congestive heart failure) ICD Codes: I50.9 - Heart failure, unspecified SNOMED: 96579518 (5) DM (diabetes mellitus) ICD Codes: E11.9 - Type 2 diabetes mellitus without complications SNOMED: 12573880 (6) Foot ulcer ICD Codes: L97.509 - Non-pressure chronic ulcer of other part of unspecified foot with unspecified severity SNOMED: 29344268 Qualifiers: Qualified Codes: L97.511 - Non-pressure chronic ulcer of other part of right foot limited to breakdown of skin (7) ESRD (end stage renal disease) on dialysis ICD Codes: N18.6 - End stage renal disease; Z99.2 - Dependence on renal dialysis SNOMED: 855759454 Assessment/Plan GTF HD per nephro fu labs supportive care Subjective ROS Limited/Unobtainable: No Allergies: Coded Allergies: CEPHALEXIN (Unverified Allergy, Unknown, 02/24/14) SULFAMETHOXAZOLE (Unverified Allergy, Unknown, 02/24/14) TRIMETHOPRIM (Unverified Allergy, Unknown, 02/24/14) Subjective he pulled his NGT again Objective Last 24 Hour Vital Signs Date Time Temp Pulse Resp B/P (MAP) Pulse Ox O2 Delivery O2 Flow Rate FiO2 11/30/18 09:00 80 22 40 11/30/18 08:46 73 97/31 11/30/18 08:00 40 11/30/18 08:00 97.3 73 22 97/31 (53) 99 11/30/18 08:00 Mechanical Ventilator 11/30/18 06:40 98 Mechanical Ventilator 40 11/30/18 06:40 72 26 40 11/30/18 06:40 Mechanical Ventilator 40 11/30/18 05:02 76 21 40 11/30/18 04:00 97.7 71 27 133/68 (89) 99 11/30/18 03:55 40 11/30/18 03:55 Mechanical Ventilator 11/30/18 03:33 77 11/30/18 03:09 88 22 40 11/30/18 01:21 80 20 40 11/30/18 00:00 Mechanical Ventilator 11/30/18 00:00 40 11/30/18 00:00 98.1 77 20 138/70 (92) 100 11/29/18 23:26 78 11/29/18 23:03 81 24 40 11/29/18 20:40 83 22 40 11/29/18 20:00 Mechanical Ventilator 11/29/18 20:00 98.7 75 25 143/73 (96) 100 11/29/18 20:00 40 11/29/18 19:27 77 11/29/18 19:14 86 21 40 11/29/18 19:13 Mechanical Ventilator 40 11/29/18 19:13 99 Mechanical Ventilator 40 11/29/18 16:55 84 21 40 11/29/18 16:00 97.8 81 26 160/85 (110) 100 11/29/18 16:00 75 11/29/18 16:00 Mechanical Ventilator 11/29/18 16:00 40 11/29/18 15:16 81 20 40 11/29/18 12:47 84 22 40 11/29/18 12:00 Mechanical Ventilator 11/29/18 12:00 40 11/29/18 12:00 85 11/29/18 12:00 96.6 88 22 152/86 (108) 99 11/29/18 11:24 86 19 40 Intake and Output 11/29/18 11/30/18 19:00 07:00 Intake Total 740 ml 555 ml Balance 740 ml 555 ml Free Water 90 ml 60 ml IV Total 110 ml Tube Feeding 540 ml 495 ml # Bowel Movements 1 2 Height (Feet): 5 Height (Inches): 5.00 Weight (Pounds): 209 General Appearance: no apparent distress EENT: normal ENT inspection Neck: supple Cardiovascular: normal rate Respiratory/Chest: decreased breath sounds Abdomen: normal bowel sounds, non tender, soft Extremities: non-tender Jorge Escalera MD Nov 30, 2018 09:43
--- NOTE | 2018-11-30 10:01 | Cardiology Progress Note ---
Assessment/Plan Status: stable, progressing Assessment/Plan Assessment/Plan Assessment/Plan 1. Troponin leak with no chest pain. Hx of CABG. Due to renal failure. On Coreg 6.25 mg bid, aspirin and Lipitor 2. S/P CABG - outpatient stress test 3. Nonsustained ventricular tachycardia. Hx of old [place] and CABG. EF 55%. No Syncope, monitor electrolytes 4. Congestive heart failure. On hemodialysis 5. End-stage renal disease, on hemodialysis per Dr. Stevens 6. Status post right sided Medtronic dual chamber pacemaker with Nl Fx. 7. Right foot ulcer. Antibiotic per Dr. Landis. FU by Dr. Huizar 8. History of liver transplant on Prograf 9. Respiratory failure, ? etiology anaphylaxis. S/P Emergency tracheostomy. Weaned off the vent on T Piece 10. Pleural effusion. FU Dr. Mendoza 11. Dysphagia, S/P PEG Dispo planning [place] when approved Subjective Cardiovascular: Reports: no symptoms Respiratory: Reports: no symptoms Gastrointestinal/Abdominal: Reports: no symptoms Genitourinary: Reports: no symptoms Subjective COVERAGE FOR [facility] Awaiting placement, referral faxed No acute events, vitals stable, CV stable Objective Last 24 Hour Vital Signs Date Time Temp Pulse Resp B/P (MAP) Pulse Ox O2 Delivery O2 Flow Rate FiO2 11/30/18 09:00 80 22 40 11/30/18 08:46 73 97/31 11/30/18 08:00 40 11/30/18 08:00 77 11/30/18 08:00 97.3 73 22 97/31 (53) 99 11/30/18 08:00 Mechanical Ventilator 11/30/18 06:40 98 Mechanical Ventilator 40 11/30/18 06:40 72 26 40 11/30/18 06:40 Mechanical Ventilator 40 11/30/18 05:02 76 21 40 11/30/18 04:00 97.7 71 27 133/68 (89) 99 11/30/18 03:55 40 11/30/18 03:55 Mechanical Ventilator 11/30/18 03:33 77 11/30/18 03:09 88 22 40 11/30/18 01:21 80 20 40 11/30/18 00:00 Mechanical Ventilator 11/30/18 00:00 40 11/30/18 00:00 98.1 77 20 138/70 (92) 100 11/29/18 23:26 78 11/29/18 23:03 81 24 40 11/29/18 20:40 83 22 40 11/29/18 20:00 Mechanical Ventilator 11/29/18 20:00 98.7 75 25 143/73 (96) 100 11/29/18 20:00 40 11/29/18 19:27 77 11/29/18 19:14 86 21 40 11/29/18 19:13 Mechanical Ventilator 40 11/29/18 19:13 99 Mechanical Ventilator 40 11/29/18 16:55 84 21 40 11/29/18 16:00 97.8 81 26 160/85 (110) 100 11/29/18 16:00 75 11/29/18 16:00 Mechanical Ventilator 11/29/18 16:00 40 11/29/18 15:16 81 20 40 11/29/18 12:47 84 22 40 11/29/18 12:00 Mechanical Ventilator 11/29/18 12:00 40 11/29/18 12:00 85 11/29/18 12:00 96.6 88 22 152/86 (108) 99 11/29/18 11:24 86 19 40 General Appearance: no apparent distress, on vent EENT: PERRL/EOMI, normal ENT inspection, TMs normal Neck: non-tender, supple, normal inspection Rhythm: NSR Cardiovascular: normal peripheral pulses, normal rate Respiratory/Chest: chest wall non-tender, normal breath sounds Abdomen: non tender, no organomegaly Extremities: normal range of motion, non-tender, normal inspection 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
[2018-11-30 12:00] VITALS: BP 126/75
--- NOTE | 2018-11-30 12:27 | Pulmonology Progress Note ---
Assessment/Plan Assessment/Plan 1. Resp failure, hypercapneic 2. End-stage renal disease, on dialysis, status post multiple upper extremity vascular procedures. 3. Coronary artery bypass surgery. 4. Diabetes. 5. Dysphonia, tongue swelling; s/p trach PLAN: not tolerating weaning with trach collar try IMV/PSV tolerates feeds disc w RN working on placement Subjective ROS Limited/Unobtainable: Yes Allergies: Coded Allergies: CEPHALEXIN (Unverified Allergy, Unknown, 02/24/14) SULFAMETHOXAZOLE (Unverified Allergy, Unknown, 02/24/14) TRIMETHOPRIM (Unverified Allergy, Unknown, 02/24/14) Objective Last 24 Hour Vital Signs Date Time Temp Pulse Resp B/P (MAP) Pulse Ox O2 Delivery O2 Flow Rate FiO2 11/30/18 11:00 74 22 40 11/30/18 09:00 80 22 40 11/30/18 08:46 73 97/31 11/30/18 08:00 40 11/30/18 08:00 77 11/30/18 08:00 97.3 73 22 97/31 (53) 99 11/30/18 08:00 Mechanical Ventilator 11/30/18 06:40 98 Mechanical Ventilator 40 11/30/18 06:40 72 26 40 11/30/18 06:40 Mechanical Ventilator 40 11/30/18 05:02 76 21 40 11/30/18 04:00 97.7 71 27 133/68 (89) 99 11/30/18 03:55 40 11/30/18 03:55 Mechanical Ventilator 11/30/18 03:33 77 11/30/18 03:09 88 22 40 11/30/18 01:21 80 20 40 11/30/18 00:00 Mechanical Ventilator 11/30/18 00:00 40 11/30/18 00:00 98.1 77 20 138/70 (92) 100 11/29/18 23:26 78 11/29/18 23:03 81 24 40 11/29/18 20:40 83 22 40 11/29/18 20:00 Mechanical Ventilator 11/29/18 20:00 98.7 75 25 143/73 (96) 100 11/29/18 20:00 40 11/29/18 19:27 77 11/29/18 19:14 86 21 40 11/29/18 19:13 Mechanical Ventilator 40 11/29/18 19:13 99 Mechanical Ventilator 40 11/29/18 16:55 84 21 40 11/29/18 16:00 97.8 81 26 160/85 (110) 100 11/29/18 16:00 75 11/29/18 16:00 Mechanical Ventilator 11/29/18 16:00 40 11/29/18 15:16 81 20 40 11/29/18 12:47 84 22 40 Intake and Output 11/29/18 11/30/18 19:00 07:00 Intake Total 740 ml 555 ml Balance 740 ml 555 ml Free Water 90 ml 60 ml IV Total 110 ml Tube Feeding 540 ml 495 ml # Bowel Movements 1 2 Objective trach on vent General Appearance: no acute distress HEENT: atraumatic Respiratory/Chest: lungs clear Cardiovascular: normal rate Current Medications Medications (Trade) Dose Ordered Sig/Aleks Route PRN Reason Start Time Stop Time Status Last Admin Dose Admin Acetaminophen (Tylenol) 650 mg Q4H PRN NG Mild Pain/Temp > 100.5 11/12/18 19:00 12/12/18 18:47 11/28/18 05:31 Acetaminophen (Tylenol) 650 mg Q8H GT 11/28/18 13:15 12/28/18 13:14 11/30/18 05:52 Amlodipine Besylate (Norvasc) 2.5 mg DAILY GT 11/22/18 09:00 12/22/18 08:59 11/29/18 08:10 Aspirin (ASA) 81 mg DAILY GT 11/20/18 09:00 12/20/18 08:59 11/30/18 08:47 Atorvastatin Calcium (Lipitor) 10 mg BEDTIME NG 11/12/18 21:00 12/02/18 20:59 11/29/18 20:50 Chlorhexidine Gluconate (Glo-Hex 2%) 1 applic DAILY@1999 TOPIC 11/11/18 20:00 12/08/18 19:59 11/29/18 20:50 Collagenase (Santyl) 1 applic DAILY@2099 TOPIC 11/14/18 21:00 12/14/18 20:59 11/28/18 21:14 Dextrose (Dextrose 50%) 25 ml Q30M PRN IV Hypoglycemia 11/11/18 14:45 11/30/18 22:44 Dextrose (Dextrose 50%) 50 ml Q30M PRN IV Hypoglycemia 11/11/18 14:45 11/30/18 22:44 Docusate Sodium (Colace) 100 mg EVERY 8 HOURS PRN GT constipation 11/24/18 18:51 12/20/18 18:50 Hydralazine HCl (Apresoline) 10 mg Q6H PRN IV For High Blood Pressure 11/11/18 14:39 12/11/18 14:38 Insulin Aspart (NovoLOG) EVERY 6 HOURS SUBQ 11/12/18 12:00 12/01/18 06:29 11/30/18 06:14 Lactulose (Cephulac) 20 gm THREE TIMES A DAY PRN GT Constipation 11/24/18 18:51 12/23/18 18:50 Lansoprazole (Prevacid) 30 mg BID GT 11/20/18 09:00 12/20/18 08:59 11/30/18 08:47 Micafungin Sodium 100 mg/Sodium Chloride 110 ml @ 110 mls/hr Q24H IVPB 11/13/18 18:00 12/04/18 23:59 11/29/18 17:59 Nicotine (Nicoderm) 1 patch Q24H TDERMAL 11/11/18 22:15 12/01/18 22:14 11/29/18 21:39 Nystatin (Nystatin) 5 ml TID ORAL 11/29/18 18:00 12/06/18 17:59 11/30/18 08:47 Olanzapine (ZyPREXA) 2.5 mg BEDTIME NG 11/13/18 21:00 12/13/18 20:59 11/29/18 20:50 Olanzapine (ZyPREXA) 2.5 mg Q6H PRN ORAL agitation 11/15/18 23:00 12/15/18 22:59 Polyethylene Glycol (Miralax) 17 gm BEDTIME ORAL 11/23/18 21:00 12/23/18 20:59 11/29/18 20:50 Polyethylene Glycol (Miralax) 17 gm DAILYPRN PRN NG Constipation 11/12/18 19:00 12/11/18 15:29 11/13/18 05:30 Sevelamer Carbonate (Renvela) 800 mg Q8HR GT 11/20/18 14:00 12/20/18 13:59 11/30/18 05:52 Tacrolimus (Prograf) 2 mg MoWeFr@0000,1200 ORAL 11/13/18 00:00 12/02/18 00:00 11/30/18 00:07 Tacrolimus (Prograf) 2 mg SuTuThSa@0900,2100 ORAL 11/17/18 21:00 12/17/18 20:59 11/29/18 20:54 Tramadol HCl (Ultram) 50 mg Q4H PRN GT For Moderate pain 11/27/18 15:45 12/04/18 15:31 11/30/18 02:14 Saroj Mendoza MD Nov 30, 2018 12:27
--- NOTE | 2018-11-30 14:44 | Nephrology Progress Note ---
Assessment/Plan Problem List: (1) ESRD (end stage renal disease) on dialysis (2) Foot ulcer (3) CHF (congestive heart failure) (4) Pacemaker (5) Acute respiratory failure Assessment: with Co2 retention Assessment ESRD with high K and SOB on admit Foot ulcer, likely infected High Troponin likely NSTMI Pacer , Pleural effusion s/p CABGS s/p Liver transplant Plan Tylenol RTC pain, and tramadol as needed Now has tracheostomy and PEG Adjust BP meds HD next - in process - tolerating well Antibiotics by ID start tube feeding / hasPEG per cardio and ID Podiatry and Vascular surgical fu PRN tramadol for pain ? DC planning? ALSO COVERING MEDCINE FOR DR BERG Subjective ROS Limited/Unobtainable: No Constitutional: Reports: malaise Objective Objective Last 24 Hour Vital Signs Date Time Temp Pulse Resp B/P (MAP) Pulse Ox O2 Delivery O2 Flow Rate FiO2 11/30/18 13:01 68 21 40 11/30/18 12:00 Mechanical Ventilator 11/30/18 12:00 73 11/30/18 12:00 97.6 76 22 126/75 (92) 100 11/30/18 12:00 40 11/30/18 11:00 74 22 40 11/30/18 09:00 80 22 40 11/30/18 08:46 73 97/31 11/30/18 08:00 40 11/30/18 08:00 77 11/30/18 08:00 97.3 73 22 97/31 (53) 99 11/30/18 08:00 Mechanical Ventilator 11/30/18 06:40 98 Mechanical Ventilator 40 11/30/18 06:40 72 26 40 11/30/18 06:40 Mechanical Ventilator 40 11/30/18 05:02 76 21 40 11/30/18 04:00 97.7 71 27 133/68 (89) 99 11/30/18 03:55 40 11/30/18 03:55 Mechanical Ventilator 11/30/18 03:33 77 11/30/18 03:09 88 22 40 11/30/18 01:21 80 20 40 11/30/18 00:00 Mechanical Ventilator 11/30/18 00:00 40 11/30/18 00:00 98.1 77 20 138/70 (92) 100 4/14/19 23:26 78 11/29/18 23:03 81 24 40 11/29/18 20:40 83 22 40 11/29/18 20:00 Mechanical Ventilator 11/29/18 20:00 98.7 75 25 143/73 (96) 100 11/29/18 20:00 40 11/29/18 19:27 77 11/29/18 19:14 86 21 40 11/29/18 19:13 Mechanical Ventilator 40 11/29/18 19:13 99 Mechanical Ventilator 40 11/29/18 16:55 84 21 40 11/29/18 16:00 97.8 81 26 160/85 (110) 100 11/29/18 16:00 75 11/29/18 16:00 Mechanical Ventilator 11/29/18 16:00 40 11/29/18 15:16 81 20 40 Intake and Output 11/29/18 11/30/18 18:59 06:59 Intake Total 740 ml 600 ml Balance 740 ml 600 ml Free Water 90 ml 60 ml IV Total 110 ml Tube Feeding 540 ml 540 ml # Bowel Movements 1 2 Height (Feet): 5 Height (Inches): 5.00 Weight (Pounds): 209 General Appearance: no apparent distress Objective no other change Nakul Stevens MD Nov 30, 2018 14:44
[2018-11-30 16:00] VITALS: BP 112/58
--- NOTE | 2018-11-30 16:36 | General Progress Note ---
Assessment/Plan Assessment: Hematology Consultation Chief Complaint: Skin Rash/Abscess DOS: 11/30/18 Reason for Consultation: Anemia altagracia ALEXANDER MD: Keegan Carter This is a 68-year-old male who is currently in the intensive care unit [facility] with respiratory compromise. Patient was initially admitted a few days ago with complaints of worsening right heel pain and during admission began to develop a swollen tongue and throat. Patient was transferred to the intensive care unit for care at which time began to require increasing oxygen requirement and eventually BiPAP. His blood gases have been poor, he had a trach that was placed on this admission. Patient with extensive past medical history and surgical history including but not limited to CABG, liver transplant , pacemaker, ESRD on hemodialysis, matured left upper extremity AV fistula, immature right upper extremity AV fistula. Coded Allergies: CEPHALEXIN (Unverified Allergy, Unknown, 02/24/14) SULFAMETHOXAZOLE (Unverified Allergy, Unknown, 02/24/14) TRIMETHOPRIM (Unverified Allergy, Unknown, 02/24/14) Scheduled Allopurinol* (Allopurinol*), 100 MG ORAL DAILY, (Reported) Calcium Acetate (Calcium Acetate), 667 MG PO BID, (Reported) Carvedilol* (Carvedilol*), 6.25 MG ORAL EVERY 12 HOURS, (Reported) Midodrine (Midodrine HCl), 5 MG ORAL BEFORE MEALS, (Reported) Nateglinide (Starlix), 120 MG ORAL THREE TIMES A DAY, (Reported) Omeprazole (Omeprazole), 20 MG ORAL BID, (Reported) Rosuvastatin Calcium* (Crestor*), 10 MG ORAL HS, (Reported) Tacrolimus (Tacrolimus), 2 MG PO BID, (Reported) Telmisartan (Telmisartan), 10 MG PO at noon, (Reported) Torsemide* (Demadex*), 100 MG PO DAILY, (Reported) Vitamin B Cmplx/Vit C/Folic AC (Nephro-Lexii Tablet), 1 TAB ORAL DAILY, (Reported ) Scheduled PRN Oxycodone/Acetaminophen 5-325* (Percocet 5-325 Mg Tablet*), 1 TAB ORAL Q4H PRN for For Pain, (Reported) Discontinued Medications Diphenhydramine Hcl* (Benadryl*), 25 MG ORAL Q6H PRN for Itching Discontinued Reason: discontinued med Limited by: medical condition History Provided By: Family Member, Medical Record, PMD Healthcare decision maker Venous progressive care nurse 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 status Full Code Advanced Directive on File Past Medical/Surgical History Past Medical/Surgical History: (1) Acute respiratory failure (2) Ground glass opacity present on imaging of lung (3) Pleural effusion (4) Hyperkalemia (5) Renal failure (6) Altered level of consciousness (7) blood culture: gram negative rods. (8) Rash and other nonspecific skin eruption (9) NSTEMI (non-ST elevated myocardial infarction) (10) ESRD (end stage renal disease) on dialysis (11) Elevated troponin (12) Foot ulcer (13) DM (diabetes mellitus) (14) CHF (congestive heart failure) (15) Pacemaker (16) Elevated troponin and foot ulcer (17) Cellulitis, abdominal wall (18) Encephalopathy acute (19) Pericardial effusion (20) Tachycardia (21) Sepsis (22) HTN (hypertension) (23) Severe tongue swelling (24) Severe tongue swelling ROS Narrative Unable to obtain given patient's current medical condition PE General Appearance: mild distress, moderate distress Lines, tubes and drains: peripheral HEENT: EOMI, thrush, tonsils swollen ++trach Neck: normal inspection Respiratory/Chest: decreased breath sounds, accessory muscle use Cardiovascular/Chest: tachycardia Abdomen: soft, no organomegaly, no mass, ++ peg Extremities: other Skin Exam: warm/dry, rash Neurologic: alert, responsive Test 11/08/18 04:50 11/08/18 09:03 White Blood Count 6.8 K/UL (4.8-10.8) Red Blood Count 5.11 M/UL (4.70-6.10) Hemoglobin 13.1 G/DL (14.2-18.0) L Hematocrit 43.5 % (42.0-52.0) Mean Corpuscular Volume 85 FL (80-99) Mean Corpuscular Hemoglobin 25.6 PG (27.0-31.0) L Mean Corpuscular Hemoglobin Concent 30.1 G/DL (32.0-36.0) L Red Cell Distribution Width 18.5 % (11.6-14.8) H Platelet Count 178 K/UL (150-450) Mean Platelet Volume 7.0 FL (6.5-10.1) Neutrophils (%) (Auto) 72.0 % (45.0-75.0) Lymphocytes (%) (Auto) 18.6 % (20.0-45.0) L Monocytes (%) (Auto) 8.6 % (1.0-10.0) Eosinophils (%) (Auto) 0.0 % (0.0-3.0) Basophils (%) (Auto) 0.8 % (0.0-2.0) Sodium Level 134 MMOL/L (136-145) L Potassium Level 4.9 MMOL/L (3.5-5.1) Chloride Level 93 MMOL/L (98-107) L Carbon Dioxide Level 31 MMOL/L (21-32) Anion Gap 10 mmol/L (5-15) Blood Urea Nitrogen 56 mg/dL (7-18) H Creatinine 8.2 MG/DL (0.55-1.30) H Estimat Glomerular Filtration Rate 6.6 mL/min (>60) Glucose Level 109 MG/DL (74-106) H Uric Acid 5.8 MG/DL (2.6-7.2) Calcium Level 9.3 MG/DL (8.5-10.1) Phosphorus Level 7.0 MG/DL (2.5-4.9) H Magnesium Level 1.9 MG/DL (1.8-2.4) Total Bilirubin 0.5 MG/DL (0.2-1.0) Aspartate Amino Transf (AST/SGOT) 16 U/L (15-37) Alanine Aminotransferase (ALT/SGPT) 12 U/L (12-78) Alkaline Phosphatase 88 U/L (46-116) Total Protein 7.4 G/DL (6.4-8.2) Albumin 3.1 G/DL (3.4-5.0) L Globulin 4.3 g/dL Albumin/Globulin Ratio 0.7 (1.0-2.7) L Cryptococcus Antigen Pending Cytomegalovirus DNA PCR copies/ml Pending Cytomegalovirus DNA PCR log10 Pending Arterial Blood pH 7.346 (7.350-7.450) Arterial Blood Partial Pressure CO2 51.3 mmHg (35.0-45.0) H Arterial Blood Partial Pressure O2 53.0 mmHg (75.0-100.0) L Arterial Blood HCO3 27.4 mmol/L (22.0-26.0) H Arterial Blood Oxygen Saturation 83.8 % (95-100) *L Arterial Blood Base Excess 1.0 (-2-2) Mino Test Positive Height (Feet): 5 Height (Inches): 10.00 Weight (Pounds): 200 Medications Current Medications Medications (Trade) Dose Ordered Sig/Aleks Route PRN Reason Start Time Stop Time Status Last Admin Dose Admin Acetaminophen (Tylenol) 650 mg Q4H PRN ORAL Mild Pain/Temp > 100.5 11/05/18 22:45 11/30/18 22:44 Aspirin (Ecotrin) 81 mg DAILY ORAL 11/06/18 09:00 12/03/18 08:59 11/06/18 08:25 Atorvastatin Calcium (Lipitor) 10 mg BEDTIME ORAL 11/06/18 21:00 12/02/18 20:59 Carvedilol (Coreg) 6.25 mg EVERY 12 HOURS ORAL 11/06/18 09:00 12/01/18 08:59 11/06/18 08:26 Chlorhexidine Gluconate (Glo-Hex 2%) 1 applic DAILY@2000 TOPIC 11/06/18 20:00 12/05/18 19:59 11/07/18 19:52 Clonidine HCl (Catapres TTS-2) 1 patch QWEEK TDERMAL 11/08/18 15:00 12/08/18 14:59 Dextrose 1,000 ml @ 50 mls/hr Q20H IV 11/06/18 18:30 12/06/18 18:29 11/08/18 10:16 Dextrose (Dextrose 50%) 25 ml Q30M PRN IV Hypoglycemia 11/05/18 22:15 11/30/18 22:44 11/06/18 15:46 Dextrose (Dextrose 50%) 50 ml Q30M PRN IV Hypoglycemia 11/05/18 22:15 11/30/18 22:44 Fentanyl Citrate (Sublimaze 100 mcg/2 mL) 100 mcg ONCE IV 11/08/18 13:30 11/08/18 15:30 Hydralazine HCl (Apresoline) 10 mg Q6H PRN IV For High Blood Pressure 11/08/18 13:15 12/08/18 13:14 Insulin Aspart (NovoLOG) BEFORE MEALS AND HS SUBQ 11/06/18 06:30 12/01/18 06:29 11/08/18 11:47 Nicotine (Nicoderm) 1 patch Q24H TDERMAL 11/05/18 22:15 12/01/18 22:14 11/07/18 21:43 Pantoprazole (Protonix) 40 mg EVERY 12 HOURS IVP 11/06/18 21:00 12/06/18 20:59 11/08/18 08:37 Tacrolimus (Prograf) 2 mg MoWeFr@0000,1200 ORAL 11/06/18 00:00 12/02/18 00:00 Tacrolimus (Prograf) 2 mg SuTuThSa@0900,2100 ORAL 11/07/18 09:00 12/01/18 20:59 Assessment and Recs: # Anemia of chronic disease due to underlying chronic medical issues, multifactorial as well as kidney disease --> Anemia workup has been ordered, rule out gi bleed, seen by gi, also reviewed w/u --> No evidence of hemolysis is noted, peripheral smear has been reviewed. --> Hgb goal >7. Transfuse prn. --> Epogen or iron at this time is not particularly indicated --> Medications have been reviewed --> evaluate with Gi team prn --> transfuse if hgb is < 7 (will trend CBC daily) # Failure to thrive is likely related to poor overall status --> with multiple decub ulceerations that are noted, seen by id/surgery # Acute respiratory failure is now s/p trach --> as per surgery recs # Ground glass opacity present on imaging of lung --> with pleural effusions, s/p drainage at this time --> no evidence for malignancy is noted # Pleural effusion --> s/p thoracentesis # Hyperkalemia --> kayzelate has been given # Renal failure --> per renal recs, appreciated # Altered level of consciousness ==> currently as per baseline The timing of this note does not necessarily reflect the time of the patient was seen. Greatly appreciate consultation! Subjective Allergies: Coded Allergies: CEPHALEXIN (Unverified Allergy, Unknown, 02/24/14) SULFAMETHOXAZOLE (Unverified Allergy, Unknown, 02/24/14) TRIMETHOPRIM (Unverified Allergy, Unknown, 02/24/14) Subjective 11/30: comfortable, on abx, no complaints, on t-piece Objective Last 24 Hour Vital Signs Date Time Temp Pulse Resp B/P (MAP) Pulse Ox O2 Delivery O2 Flow Rate FiO2 11/30/18 14:55 84 20 40 11/30/18 13:01 68 21 40 11/30/18 12:00 Mechanical Ventilator 11/30/18 12:00 73 11/30/18 12:00 97.6 76 22 126/75 (92) 100 11/30/18 12:00 40 11/30/18 11:00 74 22 40 11/30/18 09:00 80 22 40 11/30/18 08:46 73 97/31 11/30/18 08:00 40 11/30/18 08:00 77 11/30/18 08:00 97.3 73 22 97/31 (53) 99 11/30/18 08:00 Mechanical Ventilator 11/30/18 06:40 98 Mechanical Ventilator 40 11/30/18 06:40 72 26 40 11/30/18 06:40 Mechanical Ventilator 40 11/30/18 05:02 76 21 40 11/30/18 04:00 97.7 71 27 133/68 (89) 99 11/30/18 03:55 40 11/30/18 03:55 Mechanical Ventilator 11/30/18 03:33 77 11/30/18 03:09 88 22 40 11/30/18 01:21 80 20 40 11/30/18 00:00 Mechanical Ventilator 11/30/18 00:00 40 11/30/18 00:00 98.1 77 20 138/70 (92) 100 11/29/18 23:26 78 11/29/18 23:03 81 24 40 11/29/18 20:40 83 22 40 11/29/18 20:00 Mechanical Ventilator 11/29/18 20:00 98.7 75 25 143/73 (96) 100 11/29/18 20:00 40 11/29/18 19:27 77 11/29/18 19:14 86 21 40 11/29/18 19:13 Mechanical Ventilator 40 11/29/18 19:13 99 Mechanical Ventilator 40 11/29/18 16:55 84 21 40 Intake and Output 11/29/18 11/30/18 18:59 06:59 Intake Total 740 ml 600 ml Balance 740 ml 600 ml Free Water 90 ml 60 ml IV Total 110 ml Tube Feeding 540 ml 540 ml # Bowel Movements 1 2 Height (Feet): 5 Height (Inches): 5.00 Weight (Pounds): 209 Zacarias Khoury MD Nov 30, 2018 16:36
--- NOTE | 2018-11-30 17:41 | Infectious Diseases Prog Note ---
Assessment/Plan Problems: (1) Thrush, oral Assessment & Plan: continue local nystatin , and iv micafungin for three weeks empirically . EOT 12/04/18 (2) HCV antibody positive Assessment & Plan: no evidence of active infection, with undetectable viral load , suspect due to previous infection , cleared, S/P liver transplant . (3) Foot ulcer Assessment & Plan: in diabetic patient , with MRSA , S/P vancomycin treatment with HD for two weeks , pending vascular eval and possible surgical debridement. bone scan ruled out osteomyelitis of the heel . follow up with chemical dependency therapist (4) DM (diabetes mellitus) Assessment & Plan: recommend tight glycemic control to keep blood glucose between 100-140 (5) CHF (congestive heart failure) Assessment & Plan: on HD , renal is following, monitor daily weight (6) Encephalopathy acute Assessment & Plan: suspect metabolic, with high urea level, waxing and waning , now improved (7) Severe tongue swelling Assessment & Plan: improving , s/p tracheostomy to protect his airway since respiratory status worsened . now improving, pulmonary is following (8) Pleural effusion Assessment & Plan: recurrent on the right, with lung collapse , S/P thoracentesis X2 with removal of 1.5 cc of clear fluids. PREVIOUS culture were negative with negative cytology Subjective Constitutional: Reports: no symptoms HEENT: Reports: no symptoms Respiratory: Reports: no symptoms Breasts: Reports: no symptoms Cardiovascular: Reports: no symptoms Gastrointestinal/Abdominal: Reports: no symptoms Genitourinary: Reports: no symptoms Neurologic: Reports: no symptoms Psychiatric: Reports: no symptoms Skin: Reports: no symptoms Endocrine: Reports: no symptoms Hematologic: Reports: no symptoms Musculoskeletal: Reports: no symptoms Allergies: Coded Allergies: CEPHALEXIN (Unverified Allergy, Unknown, 02/24/14) SULFAMETHOXAZOLE (Unverified Allergy, Unknown, 02/24/14) TRIMETHOPRIM (Unverified Allergy, Unknown, 02/24/14) Subjective he was comfortable, has no facial swelling and mild tongue swelling , awake and responsive, no fever or chills, no significant secretions , no SOB . has less thrush on his tongue Objective Vital Signs Last 24 Hour Vital Signs Date Time Temp Pulse Resp B/P (MAP) Pulse Ox O2 Delivery O2 Flow Rate FiO2 11/30/18 17:16 78 18 40 11/30/18 16:00 74 11/30/18 16:00 97.5 69 20 112/58 (76) 100 11/30/18 16:00 Mechanical Ventilator 11/30/18 16:00 40 11/30/18 15:15 68 20 40 11/30/18 14:55 84 20 40 11/30/18 13:01 68 21 40 11/30/18 12:00 Mechanical Ventilator 11/30/18 12:00 73 11/30/18 12:00 97.6 76 22 126/75 (92) 100 11/30/18 12:00 40 11/30/18 11:00 74 22 40 11/30/18 09:00 80 22 40 11/30/18 08:46 73 97/31 11/30/18 08:00 40 11/30/18 08:00 77 11/30/18 08:00 97.3 73 22 97/31 (53) 99 11/30/18 08:00 Mechanical Ventilator 11/30/18 06:40 98 Mechanical Ventilator 40 11/30/18 06:40 72 26 40 11/30/18 06:40 Mechanical Ventilator 40 11/30/18 05:02 76 21 40 11/30/18 04:00 97.7 71 27 133/68 (89) 99 11/30/18 03:55 40 11/30/18 03:55 Mechanical Ventilator 11/30/18 03:33 77 11/30/18 03:09 88 22 40 11/30/18 01:21 80 20 40 11/30/18 00:00 Mechanical Ventilator 11/30/18 00:00 40 11/30/18 00:00 98.1 77 20 138/70 (92) 100 11/29/18 23:26 78 11/29/18 23:03 81 24 40 11/29/18 20:40 83 22 40 11/29/18 20:00 Mechanical Ventilator 11/29/18 20:00 98.7 75 25 143/73 (96) 100 11/29/18 20:00 40 11/29/18 19:27 77 11/29/18 19:14 86 21 40 11/29/18 19:13 Mechanical Ventilator 40 11/29/18 19:13 99 Mechanical Ventilator 40 Height (Feet): 5 Height (Inches): 5.00 Weight (Pounds): 209 General Appearance: WD/WN, no acute distress HEENT: normocephalic, atraumatic, anicteric, mucous membranes moist, PERRL, EOMI, pharynx normal, supple, status post trach, thrush Respiratory/Chest: chest wall non-tender, no respiratory distress, no accessory muscle use, decreased breath sounds, crackles/rales Cardiovascular: normal peripheral pulses, normal rate, regular rhythm, no gallop/murmur, no JVD Abdomen: normal bowel sounds, soft, non tender, no organomegaly, non distended , no mass, no scars Genitourinary: normal external genitalia Extremities: no cyanosis, no clubbing Skin: no rash, no lesions, no ulcers 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, alert, responsive Lymphatic: no neck adenopathy, no groin adenopathy Musculoskeletal: normal muscle bulk, no effusion Current Medications Medications (Trade) Dose Ordered Sig/Aleks Route PRN Reason Start Time Stop Time Status Last Admin Dose Admin Acetaminophen (Tylenol) 650 mg Q4H PRN NG Mild Pain/Temp > 100.5 11/12/18 19:00 12/12/18 18:47 11/28/18 05:31 Acetaminophen (Tylenol) 650 mg Q8H GT 11/28/18 13:15 12/28/18 13:14 11/30/18 12:28 Amlodipine Besylate (Norvasc) 2.5 mg DAILY GT 11/22/18 09:00 12/22/18 08:59 11/29/18 08:10 Aspirin (ASA) 81 mg DAILY GT 11/20/18 09:00 12/20/18 08:59 11/30/18 08:47 Atorvastatin Calcium (Lipitor) 10 mg BEDTIME NG 11/12/18 21:00 12/02/18 20:59 11/29/18 20:50 Chlorhexidine Gluconate (Glo-Hex 2%) 1 applic DAILY@1999 TOPIC 11/11/18 20:00 12/08/18 19:59 11/29/18 20:50 Collagenase (Santyl) 1 applic DAILY@2099 TOPIC 11/14/18 21:00 12/14/18 20:59 11/28/18 21:14 Dextrose (Dextrose 50%) 25 ml Q30M PRN IV Hypoglycemia 11/11/18 14:45 11/30/18 22:44 Dextrose (Dextrose 50%) 50 ml Q30M PRN IV Hypoglycemia 11/11/18 14:45 11/30/18 22:44 Docusate Sodium (Colace) 100 mg EVERY 8 HOURS PRN GT constipation 11/24/18 18:51 12/20/18 18:50 Hydralazine HCl (Apresoline) 10 mg Q6H PRN IV For High Blood Pressure 11/11/18 14:39 12/11/18 14:38 Insulin Aspart (NovoLOG) EVERY 6 HOURS SUBQ 11/12/18 12:00 12/01/18 06:29 11/30/18 12:36 Lactulose (Cephulac) 20 gm THREE TIMES A DAY PRN GT Constipation 11/24/18 18:51 12/23/18 18:50 Lansoprazole (Prevacid) 30 mg BID GT 11/20/18 09:00 12/20/18 08:59 11/30/18 08:47 Micafungin Sodium 100 mg/Sodium Chloride 110 ml @ 110 mls/hr Q24H IVPB 11/13/18 18:00 12/04/18 23:59 11/29/18 17:59 Nicotine (Nicoderm) 1 patch Q24H TDERMAL 11/11/18 22:15 12/01/18 22:14 11/29/18 21:39 Nystatin (Nystatin) 5 ml TID ORAL 11/29/18 18:00 12/06/18 17:59 11/30/18 12:28 Olanzapine (ZyPREXA) 2.5 mg BEDTIME NG 11/13/18 21:00 12/13/18 20:59 11/29/18 20:50 Olanzapine (ZyPREXA) 2.5 mg Q6H PRN ORAL agitation 11/15/18 23:00 12/15/18 22:59 Polyethylene Glycol (Miralax) 17 gm BEDTIME ORAL 11/23/18 21:00 12/23/18 20:59 11/29/18 20:50 Polyethylene Glycol (Miralax) 17 gm DAILYPRN PRN NG Constipation 11/12/18 19:00 12/11/18 15:29 11/13/18 05:30 Sevelamer Carbonate (Renvela) 800 mg Q8HR GT 11/20/18 14:00 12/20/18 13:59 11/30/18 14:08 Tacrolimus (Prograf) 2 mg MoWeFr@0000,1200 ORAL 11/13/18 00:00 12/02/18 00:00 11/30/18 12:29 Tacrolimus (Prograf) 2 mg SuTuThSa@0900,2100 ORAL 11/17/18 21:00 12/17/18 20:59 11/29/18 20:54 Tramadol HCl (Ultram) 50 mg Q4H PRN GT For Moderate pain 11/27/18 15:45 12/04/18 15:31 11/30/18 12:37 Francois Landis M.D. Nov 30, 2018 17:41
[2018-11-30] MEDS: Micafungin 100 MG in NS 110 ML IVPB SCH (18:05)
[2018-11-30 20:00] VITALS: BP 145/75
[2018-11-30] MEDS: Dyna-Hex 2% Top Sol 2oz TOPIC SCH (20:23)
[2018-11-30] MEDS: Miralax 17gm pkt ORAL SCH (21:10)
[2018-11-30] MEDS: OLANZapine 2.5mg tab NG SCH ×2 (21:16→21:24)
--- NOTE | 2018-11-30 21:58 | Psych Consult Progress Note ---
Psychiatry Progress Note Psychiatry Progress Note Medications Current Medications Medications (Trade) Dose Ordered Sig/Aleks Route PRN Reason Start Time Stop Time Status Last Admin Dose Admin Acetaminophen (Tylenol) 650 mg Q4H PRN NG Mild Pain/Temp > 100.5 11/12/18 19:00 12/12/18 18:47 11/28/18 05:31 Acetaminophen (Tylenol) 650 mg Q8H GT 11/28/18 13:15 12/28/18 13:14 11/30/18 21:11 Amlodipine Besylate (Norvasc) 2.5 mg DAILY GT 11/22/18 09:00 12/22/18 08:59 11/29/18 08:10 Aspirin (ASA) 81 mg DAILY GT 11/20/18 09:00 12/20/18 08:59 11/30/18 08:47 Atorvastatin Calcium (Lipitor) 10 mg BEDTIME NG 11/12/18 21:00 12/02/18 20:59 11/30/18 21:10 Chlorhexidine Gluconate (Glo-Hex 2%) 1 applic DAILY@1999 TOPIC 11/11/18 20:00 12/08/18 19:59 11/30/18 20:23 Collagenase (Santyl) 1 applic DAILY@2099 TOPIC 11/14/18 21:00 12/14/18 20:59 11/30/18 21:29 Dextrose (Dextrose 50%) 25 ml Q30M PRN IV Hypoglycemia 11/11/18 14:45 11/30/18 22:44 Dextrose (Dextrose 50%) 50 ml Q30M PRN IV Hypoglycemia 11/11/18 14:45 11/30/18 22:44 Docusate Sodium (Colace) 100 mg EVERY 8 HOURS PRN GT constipation 11/24/18 18:51 12/20/18 18:50 Hydralazine HCl (Apresoline) 10 mg Q6H PRN IV For High Blood Pressure 11/11/18 14:39 12/11/18 14:38 Insulin Aspart (NovoLOG) EVERY 6 HOURS SUBQ 11/12/18 12:00 12/01/18 06:29 11/30/18 18:13 Lactulose (Cephulac) 20 gm THREE TIMES A DAY PRN GT Constipation 11/24/18 18:51 12/23/18 18:50 Lansoprazole (Prevacid) 30 mg BID GT 11/20/18 09:00 12/20/18 08:59 11/30/18 18:05 Micafungin Sodium 100 mg/Sodium Chloride 110 ml @ 110 mls/hr Q24H IVPB 11/13/18 18:00 12/04/18 23:59 11/30/18 18:05 Nicotine (Nicoderm) 1 patch Q24H TDERMAL 11/11/18 22:15 12/01/18 22:14 11/29/18 21:39 Nystatin (Nystatin) 5 ml TID ORAL 11/29/18 18:00 12/06/18 17:59 11/30/18 18:05 Olanzapine (ZyPREXA) 2.5 mg BEDTIME NG 11/13/18 21:00 12/13/18 20:59 11/30/18 21:24 Olanzapine (ZyPREXA) 2.5 mg Q6H PRN ORAL agitation 11/15/18 23:00 12/15/18 22:59 Polyethylene Glycol (Miralax) 17 gm BEDTIME ORAL 11/23/18 21:00 12/23/18 20:59 11/30/18 21:10 Polyethylene Glycol (Miralax) 17 gm DAILYPRN PRN NG Constipation 11/12/18 19:00 12/11/18 15:29 11/13/18 05:30 Sevelamer Carbonate (Renvela) 800 mg Q8HR GT 11/20/18 14:00 12/20/18 13:59 11/30/18 14:08 Tacrolimus (Prograf) 2 mg MoWeFr@0000,1200 ORAL 11/13/18 00:00 12/02/18 00:00 11/30/18 12:29 Tacrolimus (Prograf) 2 mg SuTuThSa@0900,2100 ORAL 11/17/18 21:00 12/17/18 20:59 11/29/18 20:54 Tramadol HCl (Ultram) 50 mg Q4H PRN GT For Moderate pain 11/27/18 15:45 12/04/18 15:31 11/30/18 18:06 Problems: (1) Encephalopathy acute Neurological/Psychiatric: Reports: anxiety Allergies: Coded Allergies: CEPHALEXIN (Unverified Allergy, Unknown, 02/24/14) SULFAMETHOXAZOLE (Unverified Allergy, Unknown, 02/24/14) TRIMETHOPRIM (Unverified Allergy, Unknown, 02/24/14) Subjective the pt cont to co pain. the pt is less anxious. the pt follows direction. Objective Data Height (Feet): 5 Height (Inches): 5.00 Weight (Pounds): 209 General Appearance: WD/WN, no apparent distress, alert Assessment/Plan Problem List: (1) Encephalopathy acute ICD Codes: G93.40 - Encephalopathy, unspecified SNOMED: 18718297, 803342224 Status: stable Assessment: Zyprexa 2.5mg po qhs haldol IM prn the pt lacks capacity ativan 1mg gt prior to weaning off from vent Jeffrey Lala MD Nov 30, 2018 21:58
[2018-12-01] VITALS: BP 117/60
[2018-12-01] MEDS: NovoLOG Insulin Flexpen SUBQ SCH ×3 (00:15→23:29)
[2018-12-01 04:00] VITALS: BP 101/66
[2018-12-01] MEDS: traMADol 50mg tab GT PRN ×4 (04:18→23:27)
[2018-12-01 04:43] LABS: BASOPHILS % (AUTO) 1.3 % (0.0-2.0); HEMATOCRIT 37.7 % (42.0-52.0); HEMOGLOBIN 11.6 G/DL (14.2-18.0); LYMPHOCYTES % (AUTO) 21.3 % (20.0-45.0); MEAN CORPUSCULAR VOLUME 82 FL (80-99); MONOCYTES % (AUTO) 7.1 % (1.0-10.0); NEUTROPHILS % (AUTO) 70.3 % (45.0-75.0); PLATELET COUNT 218 K/UL (150-450); RED BLOOD COUNT 4.62 M/UL (4.70-6.10); RED CELL DISTRIBUTION WIDTH 17.1 % (11.6-14.8); WHITE BLOOD COUNT 7.7 K/UL (4.8-10.8)
[2018-12-01 05:05] LABS: ALANINE AMINOTRANSFERASE 13 U/L (12-78); ALBUMIN 2.2 G/DL (3.4-5.0); ALBUMIN/GLOBULIN RATIO 0.5 (1.0-2.7); ALKALINE PHOSPHATASE 136 U/L (46-116); ANION GAP 9 mmol/L (5-15); ASPARTATE AMINO TRANSFERASE 14 U/L (15-37); BILIRUBIN,TOTAL 0.3 MG/DL (0.2-1.0); BLOOD UREA NITROGEN 59 mg/dL (7-18); CALCIUM 8.9 MG/DL (8.5-10.1); CARBON DIOXIDE 30 MMOL/L (21-32); CHLORIDE 95 MMOL/L (98-107); CREATININE 6.4 MG/DL (0.55-1.30); PHOSPHORUS 3.9 MG/DL (2.5-4.9); POTASSIUM 4.3 MMOL/L (3.5-5.1); SODIUM 134 MMOL/L (136-145)
[2018-12-01] MEDS: Acetaminophen 650mg/20.3ml GT SCH ×3 (05:15→20:35)
[2018-12-01] MEDS: Renvela 800mg Pkt GT SCH ×3 (06:18→22:13)
[2018-12-01 08:00] VITALS: BP 126/50
[2018-12-01] MEDS: Aspirin Baby 81mg GT SCH (08:44)
[2018-12-01] MEDS: Nystatin Susp 500,000 units/5ml ORAL SCH ×3 (08:44→17:23)
--- NOTE | 2018-12-01 10:29 | GI Progress Note ---
Assessment/Plan Problems: (1) Foot ulcer ICD Codes: L97.509 - Non-pressure chronic ulcer of other part of unspecified foot with unspecified severity SNOMED: 51720413 Qualifiers: Qualified Codes: L97.511 - Non-pressure chronic ulcer of other part of right foot limited to breakdown of skin (2) DM (diabetes mellitus) ICD Codes: E11.9 - Type 2 diabetes mellitus without complications SNOMED: 90295887 (3) Transplant ICD Codes: Z94.9 - Transplanted organ and tissue status, unspecified SNOMED: 866947209 Status: stable Status Narrative Discussed the Dr. Escalera Assessment/Plan History of liver transplant, currently on Prograf C. difficile negative status post tracheostomy and PEG GTF HD per nephro supportive care cont tacrolimus prn transfusions ppi zofran prn Titrate bowel regimen follow labs The patient was seen and examined at bedside and all new and available data was reviewed in the patients chart. I agree with the above findings, impression and plan. (Patient seen earlier today. Signature stamp does not reflect patient encounter time.). - Jorge Escalera MD Subjective Subjective Limited Objective Last 24 Hour Vital Signs Date Time Temp Pulse Resp B/P (MAP) Pulse Ox O2 Delivery O2 Flow Rate FiO2 12/01/18 08:57 69 21 40 12/01/18 08:44 78 126/50 12/01/18 08:00 Mechanical Ventilator 12/01/18 08:00 40 12/01/18 08:00 97.9 78 20 126/50 (75) 100 12/01/18 07:38 80 12/01/18 07:12 68 26 40 12/01/18 07:11 96 Mechanical Ventilator 30 12/01/18 07:11 Mechanical Ventilator 30 12/01/18 05:23 75 20 40 12/01/18 04:00 97.6 72 18 101/66 (78) 100 12/01/18 04:00 Mechanical Ventilator 12/01/18 04:00 73 12/01/18 04:00 40 12/01/18 03:03 68 22 40 12/01/18 01:15 72 23 40 12/01/18 00:00 75 12/01/18 00:00 Mechanical Ventilator 12/01/18 00:00 97.7 80 20 117/60 (79) 100 4/15/19 22:59 76 20 40 11/30/18 21:06 64 20 40 11/30/18 21:00 76 11/30/18 20:00 Mechanical Ventilator 11/30/18 20:00 97.2 75 20 145/75 (98) 100 11/30/18 20:00 40 11/30/18 19:11 Mechanical Ventilator 40 11/30/18 19:10 99 Mechanical Ventilator 40 11/30/18 19:09 66 21 40 11/30/18 17:16 78 18 40 11/30/18 16:00 74 11/30/18 16:00 97.5 69 20 112/58 (76) 100 11/30/18 16:00 Mechanical Ventilator 11/30/18 16:00 40 11/30/18 15:15 68 20 40 11/30/18 14:55 84 20 40 11/30/18 13:01 68 21 40 11/30/18 12:00 Mechanical Ventilator 11/30/18 12:00 73 11/30/18 12:00 97.6 76 22 126/75 (92) 100 11/30/18 12:00 40 11/30/18 11:00 74 22 40 Intake and Output 11/30/18 12/01/18 19:00 07:00 Intake Total 1050 ml 540 ml Output Total 4000 ml Balance -2950 ml 540 ml Free Water 400 ml IV Total 110 ml Tube Feeding 540 ml 540 ml Hemodialysis UF 4000 ml # Bowel Movements 4 4 Laboratory Tests Test 12/01/18 04:00 White Blood Count 7.7 K/UL (4.8-10.8) Red Blood Count 4.62 M/UL (4.70-6.10) L Hemoglobin 11.6 G/DL (14.2-18.0) L Hematocrit 37.7 % (42.0-52.0) L Mean Corpuscular Volume 82 FL (80-99) Mean Corpuscular Hemoglobin 25.1 PG (27.0-31.0) L Mean Corpuscular Hemoglobin Concent 30.8 G/DL (32.0-36.0) L Red Cell Distribution Width 17.1 % (11.6-14.8) H Platelet Count 218 K/UL (150-450) Mean Platelet Volume 8.8 FL (6.5-10.1) Neutrophils (%) (Auto) 70.3 % (45.0-75.0) Lymphocytes (%) (Auto) 21.3 % (20.0-45.0) Monocytes (%) (Auto) 7.1 % (1.0-10.0) Eosinophils (%) (Auto) 0.0 % (0.0-3.0) Basophils (%) (Auto) 1.3 % (0.0-2.0) Sodium Level 134 MMOL/L (136-145) L Potassium Level 4.3 MMOL/L (3.5-5.1) Chloride Level 95 MMOL/L (98-107) L Carbon Dioxide Level 30 MMOL/L (21-32) Anion Gap 9 mmol/L (5-15) Blood Urea Nitrogen 59 mg/dL (7-18) H Creatinine 6.4 MG/DL (0.55-1.30) H Estimat Glomerular Filtration Rate 8.8 mL/min (>60) Glucose Level 132 MG/DL (74-106) H Calcium Level 8.9 MG/DL (8.5-10.1) Phosphorus Level 3.9 MG/DL (2.5-4.9) Magnesium Level 2.6 MG/DL (1.8-2.4) H Total Bilirubin 0.3 MG/DL (0.2-1.0) Aspartate Amino Transf (AST/SGOT) 14 U/L (15-37) L Alanine Aminotransferase (ALT/SGPT) 13 U/L (12-78) Alkaline Phosphatase 136 U/L (46-116) H Total Protein 6.8 G/DL (6.4-8.2) Albumin 2.2 G/DL (3.4-5.0) L Globulin 4.6 g/dL Albumin/Globulin Ratio 0.5 (1.0-2.7) L Microbiology Date/Time Source Procedure Growth Status 11/30/18 17:33 Stool Clostridium difficile Toxin Assay - Final Complete Height (Feet): 5 Height (Inches): 5.00 Weight (Pounds): 212 General Appearance: WD/WN, no apparent distress, alert Cardiovascular: normal rate Respiratory/Chest: normal breath sounds, no respiratory distress Abdominal Exam: normal bowel sounds, non tender, soft, GT site Extremities: non-tender Kelvin Briggs [employer] Dec 01, 2018 10:29
--- NOTE | 2018-12-01 10:59 | Nephrology Progress Note ---
Assessment/Plan Problem List: (1) ESRD (end stage renal disease) on dialysis (2) Foot ulcer (3) CHF (congestive heart failure) (4) Pacemaker (5) Acute respiratory failure Assessment: with Co2 retention Assessment ESRD with high K and SOB on admit Foot ulcer, likely infected High Troponin likely NSTMI Pacer , Pleural effusion s/p CABGS s/p Liver transplant Plan Tylenol RTC pain, and tramadol as needed Now has tracheostomy and PEG Adjust BP meds HD next Antibiotics by ID start tube feeding / hasPEG per cardio and ID Podiatry and Vascular surgical fu PRN tramadol for pain ? DC planning? ALSO COVERING MEDCINE FOR DR BERG Subjective ROS Limited/Unobtainable: No Constitutional: Reports: malaise Objective Objective Last 24 Hour Vital Signs Date Time Temp Pulse Resp B/P (MAP) Pulse Ox O2 Delivery O2 Flow Rate FiO2 12/01/18 08:57 69 21 40 12/01/18 08:44 78 126/50 12/01/18 08:00 Mechanical Ventilator 12/01/18 08:00 40 12/01/18 08:00 97.9 78 20 126/50 (75) 100 12/01/18 07:38 80 12/01/18 07:12 68 26 40 12/01/18 07:11 96 Mechanical Ventilator 30 12/01/18 07:11 Mechanical Ventilator 30 12/01/18 05:23 75 20 40 12/01/18 04:00 97.6 72 18 101/66 (78) 100 12/01/18 04:00 Mechanical Ventilator 12/01/18 04:00 73 12/01/18 04:00 40 12/01/18 03:03 68 22 40 12/01/18 01:15 72 23 40 12/01/18 00:00 75 12/01/18 00:00 Mechanical Ventilator 12/01/18 00:00 97.7 80 20 117/60 (79) 100 11/30/18 22:59 76 20 40 11/30/18 21:06 64 20 40 11/30/18 21:00 76 11/30/18 20:00 Mechanical Ventilator 11/30/18 20:00 97.2 75 20 145/75 (98) 100 11/30/18 20:00 40 11/30/18 19:11 Mechanical Ventilator 40 11/30/18 19:10 99 Mechanical Ventilator 40 11/30/18 19:09 66 21 40 11/30/18 17:16 78 18 40 11/30/18 16:00 74 11/30/18 16:00 97.5 69 20 112/58 (76) 100 11/30/18 16:00 Mechanical Ventilator 11/30/18 16:00 40 11/30/18 15:15 68 20 40 11/30/18 14:55 84 20 40 11/30/18 13:01 68 21 40 11/30/18 12:00 Mechanical Ventilator 11/30/18 12:00 73 11/30/18 12:00 97.6 76 22 126/75 (92) 100 11/30/18 12:00 40 11/30/18 11:00 74 22 40 Intake and Output 11/30/18 12/01/18 19:00 07:00 Intake Total 1050 ml 540 ml Output Total 4000 ml Balance -2950 ml 540 ml Free Water 400 ml IV Total 110 ml Tube Feeding 540 ml 540 ml Hemodialysis UF 4000 ml # Bowel Movements 4 4 Laboratory Tests 12/01/18 04:00: White Blood Count 7.7, Red Blood Count 4.62L, Hemoglobin 11.6L, Hematocrit 37.7L , Mean Corpuscular Volume 82, Mean Corpuscular Hemoglobin 25.1L, Mean Corpuscular Hemoglobin Concent 30.8L, Red Cell Distribution Width 17.1H, Platelet Count 218, Mean Platelet Volume 8.8, Neutrophils (%) (Auto) 70.3, Lymphocytes (%) (Auto) 21.3, Monocytes (%) (Auto) 7.1, Eosinophils (%) (Auto) 0.0, Basophils (%) (Auto) 1.3, Sodium Level 134L, Potassium Level 4.3, Chloride Level 95L, Carbon Dioxide Level 30, Anion Gap 9, Blood Urea Nitrogen 59H, Creatinine 6.4H, Estimat Glomerular Filtration Rate 8.8, Glucose Level 132H, Calcium Level 8.9, Phosphorus Level 3.9, Magnesium Level 2.6H, Total Bilirubin 0.3, Aspartate Amino Transf (AST/SGOT) 14L, Alanine Aminotransferase (ALT/SGPT) 13, Alkaline Phosphatase 136H, Total Protein 6.8, Albumin 2.2L, Globulin 4.6, Albumin/Globulin Ratio 0.5L Height (Feet): 5 Height (Inches): 5.00 Weight (Pounds): 212 General Appearance: no apparent distress EENT: other - trach Cardiovascular: regular rhythm Respiratory/Chest: decreased breath sounds Abdomen: distended Objective no other change Nakul Stevens MD Dec 01, 2018 10:59
[2018-12-01 12:00] VITALS: BP 105/74
--- NOTE | 2018-12-01 12:33 | Surgery Progress Note ---
Surgery Progress Note Subjective Procedure Performed 1. emergency tracheostomy 2. left femoral central venous catheter insertion 3. bronchoscopy Additional Comments patient seen at bedside for follow up. overall looks much better now. more comfortable. more alert and responsive. Objective Last 24 Hour Vital Signs Date Time Temp Pulse Resp B/P (MAP) Pulse Ox O2 Delivery O2 Flow Rate FiO2 12/01/18 11:39 77 12/01/18 11:25 72 19 40 12/01/18 08:57 69 21 40 12/01/18 08:44 78 126/50 12/01/18 08:00 Mechanical Ventilator 12/01/18 08:00 40 12/01/18 08:00 97.9 78 20 126/50 (75) 100 12/01/18 07:38 80 12/01/18 07:12 68 26 40 12/01/18 07:11 96 Mechanical Ventilator 30 12/01/18 07:11 Mechanical Ventilator 30 12/01/18 05:23 75 20 40 12/01/18 04:00 97.6 72 18 101/66 (78) 100 12/01/18 04:00 Mechanical Ventilator 12/01/18 04:00 73 12/01/18 04:00 40 12/01/18 03:03 68 22 40 12/01/18 01:15 72 23 40 12/01/18 00:00 75 12/01/18 00:00 Mechanical Ventilator 12/01/18 00:00 97.7 80 20 117/60 (79) 100 11/30/18 22:59 76 20 40 11/30/18 21:06 64 20 40 11/30/18 21:00 76 11/30/18 20:00 Mechanical Ventilator 11/30/18 20:00 97.2 75 20 145/75 (98) 100 11/30/18 20:00 40 11/30/18 19:11 Mechanical Ventilator 40 11/30/18 19:10 99 Mechanical Ventilator 40 11/30/18 19:09 66 21 40 11/30/18 17:16 78 18 40 11/30/18 16:00 74 11/30/18 16:00 97.5 69 20 112/58 (76) 100 11/30/18 16:00 Mechanical Ventilator 11/30/18 16:00 40 11/30/18 15:15 68 20 40 11/30/18 14:55 84 20 40 11/30/18 13:01 68 21 40 I&O Intake and Output 11/30/18 12/01/18 19:00 07:00 Intake Total 1050 ml 540 ml Output Total 4000 ml Balance -2950 ml 540 ml Free Water 400 ml IV Total 110 ml Tube Feeding 540 ml 540 ml Hemodialysis UF 4000 ml # Bowel Movements 4 4 Dressing: dry Wound: clean Cardiovascular: RSR Respiratory: decreased breath sounds Abdomen: soft, present bowel sounds, non-distended Extremities: no tenderness, no cyanosis Laboratory Tests Test 12/01/18 04:00 White Blood Count 7.7 K/UL (4.8-10.8) Red Blood Count 4.62 M/UL (4.70-6.10) L Hemoglobin 11.6 G/DL (14.2-18.0) L Hematocrit 37.7 % (42.0-52.0) L Mean Corpuscular Volume 82 FL (80-99) Mean Corpuscular Hemoglobin 25.1 PG (27.0-31.0) L Mean Corpuscular Hemoglobin Concent 30.8 G/DL (32.0-36.0) L Red Cell Distribution Width 17.1 % (11.6-14.8) H Platelet Count 218 K/UL (150-450) Mean Platelet Volume 8.8 FL (6.5-10.1) Neutrophils (%) (Auto) 70.3 % (45.0-75.0) Lymphocytes (%) (Auto) 21.3 % (20.0-45.0) Monocytes (%) (Auto) 7.1 % (1.0-10.0) Eosinophils (%) (Auto) 0.0 % (0.0-3.0) Basophils (%) (Auto) 1.3 % (0.0-2.0) Sodium Level 134 MMOL/L (136-145) L Potassium Level 4.3 MMOL/L (3.5-5.1) Chloride Level 95 MMOL/L (98-107) L Carbon Dioxide Level 30 MMOL/L (21-32) Anion Gap 9 mmol/L (5-15) Blood Urea Nitrogen 59 mg/dL (7-18) H Creatinine 6.4 MG/DL (0.55-1.30) H Estimat Glomerular Filtration Rate 8.8 mL/min (>60) Glucose Level 132 MG/DL (74-106) H Calcium Level 8.9 MG/DL (8.5-10.1) Phosphorus Level 3.9 MG/DL (2.5-4.9) Magnesium Level 2.6 MG/DL (1.8-2.4) H Total Bilirubin 0.3 MG/DL (0.2-1.0) Aspartate Amino Transf (AST/SGOT) 14 U/L (15-37) L Alanine Aminotransferase (ALT/SGPT) 13 U/L (12-78) Alkaline Phosphatase 136 U/L (46-116) H Total Protein 6.8 G/DL (6.4-8.2) Albumin 2.2 G/DL (3.4-5.0) L Globulin 4.6 g/dL Albumin/Globulin Ratio 0.5 (1.0-2.7) L Plan Problems: (1) Acute respiratory failure Assessment & Plan: dressings prn vent prn (2) Ground glass opacity present on imaging of lung (3) Pleural effusion (4) Hyperkalemia (5) Renal failure (6) Altered level of consciousness (7) blood culture: gram negative rods. (8) Rash and other nonspecific skin eruption (9) NSTEMI (non-ST elevated myocardial infarction) (10) ESRD (end stage renal disease) on dialysis (11) Elevated troponin (12) Foot ulcer (13) DM (diabetes mellitus) (14) CHF (congestive heart failure) (15) Pacemaker (16) Elevated troponin and foot ulcer (17) Cellulitis, abdominal wall (18) Encephalopathy acute (19) Pericardial effusion (20) Tachycardia (21) Sepsis (22) HTN (hypertension) (23) Severe tongue swelling (24) Severe tongue swelling Additional Comments right forearm wound evaluated. as it demarcates skin eschar without ulceration. could be pressure but given appearance now unlikely. seems almost ischemic. dry eschar which is stable for now. will cont to monitor. Jerman French Dec 01, 2018 12:33
--- NOTE | 2018-12-01 13:24 | General Progress Note ---
Assessment/Plan Assessment: Assessment and Recs: # Coaaulopathy likely secondary to decreased Vitk dependent cofactors (high INR , PT) --> monitor closely for any evidence of bleeding --> hold off on mixing study at this time unless severe changes noted --> VIT K on prn basis sq can be administered # Anemia of chronic disease due to underlying chronic medical issues, multifactorial as well as kidney disease --> Anemia workup has been ordered, rule out gi bleed, seen by gi, also reviewed w/u --> No evidence of hemolysis is noted, peripheral smear has been reviewed. --> Hgb goal >7. Transfuse prn. --> Epogen or iron at this time is not particularly indicated --> Medications have been reviewed --> evaluate with Gi team prn --> transfuse if hgb is < 7 (will trend CBC daily) # Failure to thrive is likely related to poor overall status --> with multiple decub ulceerations that are noted, seen by id/surgery --> s/p trach as well # Acute respiratory failure is now s/p trach --> as per surgery recs # Ground glass opacity present on imaging of lung --> with pleural effusions, s/p drainage at this time --> no evidence for malignancy is noted # Pleural effusion --> s/p thoracentesis # Hyperkalemia --> kayzelate has been given # Renal failure --> per renal recs, appreciated # Altered level of consciousness ==> currently as per baseline The timing of this note does not necessarily reflect the time of the patient was seen. Greatly appreciate consultation! Subjective Constitutional: Denies: no symptoms, chills, diaphoresis, fever, malaise, weakness, other HEENT: Denies: no symptoms, eye pain, blurred vision, tearing, double vision, ear pain, ear discharge, nose pain, nose congestion, throat pain, throat swelling, mouth pain, mouth swelling, other Respiratory: Denies: no symptoms, cough, orthopnea, shortness of breath, SOB with excertion, SOB at rest, sputum, stridor, wheezing, other Gastrointestinal/Abdominal: Denies: no symptoms, abdomen distended, abdominal pain, black stools, tarry stools, blood in stool, constipated, diarrhea, difficulty swallowing, nausea, poor appetite, poor fluid intake, rectal bleeding , vomiting, other Genitourinary: Denies: no symptoms, burning, discharge, frequency, flank pain, hematuria, incontinence, pain, urgency, other 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: Denies: no symptoms, anxiety, depressed, emotional problems, headache, numbness, paresthesia, pre-existing deficit, seizure, tingling, tremors, weakness, other Endocrine: Denies: no symptoms, excessive sweating, flushing, intolerance to cold, intolerance to heat, increased hunger, increased thirst, increased urine, unexplained weight gain, unexplained weight loss, other Allergies: Coded Allergies: CEPHALEXIN (Unverified Allergy, Unknown, 02/24/14) SULFAMETHOXAZOLE (Unverified Allergy, Unknown, 02/24/14) TRIMETHOPRIM (Unverified Allergy, Unknown, 02/24/14) Subjective 11/30: comfortable, on abx, no complaints, on t-piece 12/01: to have hd done potentially tomorrow, is more alert/awake Objective Last 24 Hour Vital Signs Date Time Temp Pulse Resp B/P (MAP) Pulse Ox O2 Delivery O2 Flow Rate FiO2 12/01/18 12:50 64 21 40 12/01/18 12:00 Mechanical Ventilator 12/01/18 12:00 40 12/01/18 11:39 77 12/01/18 11:25 72 19 40 12/01/18 08:57 69 21 40 12/01/18 08:44 78 126/50 12/01/18 08:00 Mechanical Ventilator 12/01/18 08:00 40 12/01/18 08:00 97.9 78 20 126/50 (75) 100 12/01/18 07:38 80 12/01/18 07:12 68 26 40 12/01/18 07:11 96 Mechanical Ventilator 30 12/01/18 07:11 Mechanical Ventilator 30 12/01/18 05:23 75 20 40 12/01/18 04:00 97.6 72 18 101/66 (78) 100 12/01/18 04:00 Mechanical Ventilator 12/01/18 04:00 73 12/01/18 04:00 40 12/01/18 03:03 68 22 40 12/01/18 01:15 72 23 40 12/01/18 00:00 75 12/01/18 00:00 Mechanical Ventilator 12/01/18 00:00 97.7 80 20 117/60 (79) 100 11/30/18 22:59 76 20 40 11/30/18 21:06 64 20 40 11/30/18 21:00 76 11/30/18 20:00 Mechanical Ventilator 11/30/18 20:00 97.2 75 20 145/75 (98) 100 11/30/18 20:00 40 11/30/18 19:11 Mechanical Ventilator 40 11/30/18 19:10 99 Mechanical Ventilator 40 11/30/18 19:09 66 21 40 11/30/18 17:16 78 18 40 11/30/18 16:00 74 11/30/18 16:00 97.5 69 20 112/58 (76) 100 11/30/18 16:00 Mechanical Ventilator 11/30/18 16:00 40 11/30/18 15:15 68 20 40 11/30/18 14:55 84 20 40 Intake and Output 11/30/18 12/01/18 19:00 07:00 Intake Total 1050 ml 540 ml Output Total 4000 ml Balance -2950 ml 540 ml Free Water 400 ml IV Total 110 ml Tube Feeding 540 ml 540 ml Hemodialysis UF 4000 ml # Bowel Movements 4 4 Laboratory Tests 12/01/18 04:00: White Blood Count 7.7, Red Blood Count 4.62L, Hemoglobin 11.6L, Hematocrit 37.7L , Mean Corpuscular Volume 82, Mean Corpuscular Hemoglobin 25.1L, Mean Corpuscular Hemoglobin Concent 30.8L, Red Cell Distribution Width 17.1H, Platelet Count 218, Mean Platelet Volume 8.8, Neutrophils (%) (Auto) 70.3, Lymphocytes (%) (Auto) 21.3, Monocytes (%) (Auto) 7.1, Eosinophils (%) (Auto) 0.0, Basophils (%) (Auto) 1.3, Sodium Level 134L, Potassium Level 4.3, Chloride Level 95L, Carbon Dioxide Level 30, Anion Gap 9, Blood Urea Nitrogen 59H, Creatinine 6.4H, Estimat Glomerular Filtration Rate 8.8, Glucose Level 132H, Calcium Level 8.9, Phosphorus Level 3.9, Magnesium Level 2.6H, Total Bilirubin 0.3, Aspartate Amino Transf (AST/SGOT) 14L, Alanine Aminotransferase (ALT/SGPT) 13, Alkaline Phosphatase 136H, Total Protein 6.8, Albumin 2.2L, Globulin 4.6, Albumin/Globulin Ratio 0.5L Height (Feet): 5 Height (Inches): 5.00 Weight (Pounds): 212 Objective PE General Appearance: mild distress, moderate distress Lines, tubes and drains: peripheral HEENT: EOMI, thrush, tonsils swollen ++trach Neck: normal inspection Respiratory/Chest: decreased breath sounds, accessory muscle use Cardiovascular/Chest: tachycardia Abdomen: soft, no organomegaly, no mass, ++ peg Extremities: other Skin Exam: warm/dry, rash Neurologic: alert, responsive Zacarias Khoury MD Dec 01, 2018 13:24
--- NOTE | 2018-12-01 14:32 | Pulmonology Progress Note ---
Assessment/Plan Assessment/Plan 1. Resp failure, hypercapneic 2. End-stage renal disease, on dialysis, status post multiple upper extremity vascular procedures. 3. Coronary artery bypass surgery. 4. Diabetes. 5. Dysphonia, tongue swelling; s/p trach PLAN: not tolerating weaning so far try IMV/PSV tolerates feeds disc w RN working on placement, difficult due to insurance Subjective Constitutional: Reports: no symptoms Respiratory: Denies: shortness of breath Allergies: Coded Allergies: CEPHALEXIN (Unverified Allergy, Unknown, 02/24/14) SULFAMETHOXAZOLE (Unverified Allergy, Unknown, 02/24/14) TRIMETHOPRIM (Unverified Allergy, Unknown, 02/24/14) Objective Last 24 Hour Vital Signs Date Time Temp Pulse Resp B/P (MAP) Pulse Ox O2 Delivery O2 Flow Rate FiO2 12/01/18 12:50 64 21 40 12/01/18 12:00 Mechanical Ventilator 12/01/18 12:00 40 12/01/18 12:00 97.3 77 20 105/74 (84) 100 12/01/18 11:39 77 12/01/18 11:25 72 19 40 12/01/18 08:57 69 21 40 12/01/18 08:44 78 126/50 12/01/18 08:00 Mechanical Ventilator 12/01/18 08:00 40 12/01/18 08:00 97.9 78 20 126/50 (75) 100 12/01/18 07:38 80 12/01/18 07:12 68 26 40 12/01/18 07:11 96 Mechanical Ventilator 30 12/01/18 07:11 Mechanical Ventilator 30 12/01/18 05:23 75 20 40 12/01/18 04:00 97.6 72 18 101/66 (78) 100 12/01/18 04:00 Mechanical Ventilator 12/01/18 04:00 73 12/01/18 04:00 40 12/01/18 03:03 68 22 40 12/01/18 01:15 72 23 40 12/01/18 00:00 75 12/01/18 00:00 Mechanical Ventilator 12/01/18 00:00 97.7 80 20 117/60 (79) 100 11/30/18 22:59 76 20 40 11/30/18 21:06 64 20 40 11/30/18 21:00 76 11/30/18 20:00 Mechanical Ventilator 11/30/18 20:00 97.2 75 20 145/75 (98) 100 11/30/18 20:00 40 11/30/18 19:11 Mechanical Ventilator 40 11/30/18 19:10 99 Mechanical Ventilator 40 11/30/18 19:09 66 21 40 11/30/18 17:16 78 18 40 11/30/18 16:00 74 11/30/18 16:00 97.5 69 20 112/58 (76) 100 11/30/18 16:00 Mechanical Ventilator 11/30/18 16:00 40 11/30/18 15:15 68 20 40 11/30/18 14:55 84 20 40 Intake and Output 11/30/18 12/01/18 19:00 07:00 Intake Total 1050 ml 540 ml Output Total 4000 ml Balance -2950 ml 540 ml Free Water 400 ml IV Total 110 ml Tube Feeding 540 ml 540 ml Hemodialysis UF 4000 ml # Bowel Movements 4 4 Objective trach on vent General Appearance: no acute distress Respiratory/Chest: lungs clear Cardiovascular: normal rate Microbiology Date/Time Source Procedure Growth Status 11/30/18 17:33 Stool Clostridium difficile Toxin Assay - Final Complete Laboratory Tests 12/01/18 04:00: White Blood Count 7.7, Red Blood Count 4.62L, Hemoglobin 11.6L, Hematocrit 37.7L , Mean Corpuscular Volume 82, Mean Corpuscular Hemoglobin 25.1L, Mean Corpuscular Hemoglobin Concent 30.8L, Red Cell Distribution Width 17.1H, Platelet Count 218, Mean Platelet Volume 8.8, Neutrophils (%) (Auto) 70.3, Lymphocytes (%) (Auto) 21.3, Monocytes (%) (Auto) 7.1, Eosinophils (%) (Auto) 0.0, Basophils (%) (Auto) 1.3, Sodium Level 134L, Potassium Level 4.3, Chloride Level 95L, Carbon Dioxide Level 30, Anion Gap 9, Blood Urea Nitrogen 59H, Creatinine 6.4H, Estimat Glomerular Filtration Rate 8.8, Glucose Level 132H, Calcium Level 8.9, Phosphorus Level 3.9, Magnesium Level 2.6H, Total Bilirubin 0.3, Aspartate Amino Transf (AST/SGOT) 14L, Alanine Aminotransferase (ALT/SGPT) 13, Alkaline Phosphatase 136H, Total Protein 6.8, Albumin 2.2L, Globulin 4.6, Albumin/Globulin Ratio 0.5L Current Medications Medications (Trade) Dose Ordered Sig/Aleks Route PRN Reason Start Time Stop Time Status Last Admin Dose Admin Acetaminophen (Tylenol) 650 mg Q4H PRN NG Mild Pain/Temp > 100.5 11/12/18 19:00 12/12/18 18:47 11/28/18 05:31 Acetaminophen (Tylenol) 650 mg Q8H GT 11/28/18 13:15 12/28/18 13:14 12/01/18 13:16 Amlodipine Besylate (Norvasc) 2.5 mg DAILY GT 11/22/18 09:00 12/22/18 08:59 12/01/18 08:44 Aspirin (ASA) 81 mg DAILY GT 11/20/18 09:00 12/20/18 08:59 12/01/18 08:44 Atorvastatin Calcium (Lipitor) 10 mg BEDTIME NG 11/12/18 21:00 12/02/18 20:59 11/30/18 21:10 Chlorhexidine Gluconate (Glo-Hex 2%) 1 applic DAILY@1999 TOPIC 11/11/18 20:00 12/08/18 19:59 11/30/18 20:23 Collagenase (Santyl) 1 applic DAILY@2099 TOPIC 11/14/18 21:00 12/14/18 20:59 11/30/18 21:29 Docusate Sodium (Colace) 100 mg EVERY 8 HOURS PRN GT constipation 11/24/18 18:51 12/20/18 18:50 Hydralazine HCl (Apresoline) 10 mg Q6H PRN IV For High Blood Pressure 11/11/18 14:39 12/11/18 14:38 Lactulose (Cephulac) 20 gm THREE TIMES A DAY PRN GT Constipation 11/24/18 18:51 12/23/18 18:50 Lansoprazole (Prevacid) 30 mg BID GT 11/20/18 09:00 12/20/18 08:59 12/01/18 08:44 Micafungin Sodium 100 mg/Sodium Chloride 110 ml @ 110 mls/hr Q24H IVPB 11/13/18 18:00 12/04/18 23:59 11/30/18 18:05 Nicotine (Nicoderm) 1 patch Q24H TDERMAL 11/11/18 22:15 12/01/18 22:14 11/30/18 22:15 Nystatin (Nystatin) 5 ml TID ORAL 11/29/18 18:00 12/06/18 17:59 12/01/18 13:15 Olanzapine (ZyPREXA) 2.5 mg BEDTIME NG 11/13/18 21:00 12/13/18 20:59 11/30/18 21:24 Olanzapine (ZyPREXA) 2.5 mg Q6H PRN ORAL agitation 11/15/18 23:00 12/15/18 22:59 Polyethylene Glycol (Miralax) 17 gm BEDTIME ORAL 11/23/18 21:00 12/23/18 20:59 11/30/18 21:10 Polyethylene Glycol (Miralax) 17 gm DAILYPRN PRN NG Constipation 11/12/18 19:00 12/11/18 15:29 11/13/18 05:30 Sevelamer Carbonate (Renvela) 800 mg Q8HR GT 11/20/18 14:00 12/20/18 13:59 12/01/18 13:16 Tacrolimus (Prograf) 2 mg MoWeFr@0000,1200 ORAL 11/13/18 00:00 12/02/18 00:00 11/30/18 12:29 Tacrolimus (Prograf) 2 mg SuTuThSa@0900,2100 ORAL 11/17/18 21:00 12/17/18 20:59 12/01/18 08:59 Tramadol HCl (Ultram) 50 mg Q4H PRN GT For Moderate pain 11/27/18 15:45 12/04/18 15:31 12/01/18 08:59 Saroj Mendoza MD Dec 01, 2018 14:32
[2018-12-01 16:00] VITALS: BP 104/66
[2018-12-01] MEDS: Micafungin 100 MG in NS 110 ML IVPB SCH (17:23)
--- NOTE | 2018-12-01 17:30 | Infectious Diseases Prog Note ---
Assessment/Plan Problems: (1) Thrush, oral Assessment & Plan: continue local nystatin , and iv micafungin for three weeks empirically . EOT 12/04/18 (2) HCV antibody positive Assessment & Plan: no evidence of active infection, with undetectable viral load , suspect due to previous infection , cleared, S/P liver transplant . (3) Foot ulcer Assessment & Plan: in diabetic patient , with MRSA , S/P vancomycin treatment with HD for two weeks , pending vascular eval and possible surgical debridement. bone scan ruled out osteomyelitis of the heel . follow up with accounts payable professional (4) DM (diabetes mellitus) Assessment & Plan: recommend tight glycemic control to keep blood glucose between 100-140 (5) CHF (congestive heart failure) Assessment & Plan: on HD , renal is following, monitor daily weight (6) Encephalopathy acute Assessment & Plan: suspect metabolic, with high urea level, waxing and waning , now improved (7) Severe tongue swelling Assessment & Plan: improving , s/p tracheostomy to protect his airway since respiratory status worsened . now improving, pulmonary is following (8) Pleural effusion Assessment & Plan: recurrent on the right, with lung collapse , S/P thoracentesis X2 with removal of 1.5 cc of clear fluids. PREVIOUS culture were negative with negative cytology Subjective Constitutional: Reports: no symptoms HEENT: Reports: no symptoms Respiratory: Reports: no symptoms Breasts: Reports: no symptoms Cardiovascular: Reports: no symptoms Gastrointestinal/Abdominal: Reports: no symptoms Genitourinary: Reports: no symptoms Neurologic: Reports: no symptoms Psychiatric: Reports: no symptoms Skin: Reports: no symptoms Endocrine: Reports: no symptoms Hematologic: Reports: no symptoms Musculoskeletal: Reports: no symptoms Allergies: Coded Allergies: CEPHALEXIN (Unverified Allergy, Unknown, 02/24/14) SULFAMETHOXAZOLE (Unverified Allergy, Unknown, 02/24/14) TRIMETHOPRIM (Unverified Allergy, Unknown, 02/24/14) Subjective he was comfortable, has no facial swelling and mild tongue swelling , awake and responsive, no fever or chills, no significant secretions , no SOB . has less thrush on his tongue Objective Vital Signs Last 24 Hour Vital Signs Date Time Temp Pulse Resp B/P (MAP) Pulse Ox O2 Delivery O2 Flow Rate FiO2 12/01/18 16:00 40 12/01/18 16:00 96.8 76 18 104/66 (79) 99 4/16/19 16:00 Mechanical Ventilator 12/01/18 15:30 102 30 40 12/01/18 15:14 75 12/01/18 15:10 74 18 40 12/01/18 15:08 76 18 40 12/01/18 12:50 64 21 40 12/01/18 12:00 Mechanical Ventilator 12/01/18 12:00 40 12/01/18 12:00 97.3 77 20 105/74 (84) 100 12/01/18 11:39 77 12/01/18 11:25 72 19 40 12/01/18 08:57 69 21 40 12/01/18 08:44 78 126/50 12/01/18 08:00 Mechanical Ventilator 12/01/18 08:00 40 12/01/18 08:00 97.9 78 20 126/50 (75) 100 12/01/18 07:38 80 12/01/18 07:12 68 26 40 12/01/18 07:11 96 Mechanical Ventilator 30 12/01/18 07:11 Mechanical Ventilator 30 12/01/18 05:23 75 20 40 12/01/18 04:00 97.6 72 18 101/66 (78) 100 12/01/18 04:00 Mechanical Ventilator 12/01/18 04:00 73 12/01/18 04:00 40 12/01/18 03:03 68 22 40 12/01/18 01:15 72 23 40 12/01/18 00:00 75 12/01/18 00:00 Mechanical Ventilator 12/01/18 00:00 97.7 80 20 117/60 (79) 100 11/30/18 22:59 76 20 40 11/30/18 21:06 64 20 40 11/30/18 21:00 76 11/30/18 20:00 Mechanical Ventilator 11/30/18 20:00 97.2 75 20 145/75 (98) 100 11/30/18 20:00 40 11/30/18 19:11 Mechanical Ventilator 40 11/30/18 19:10 99 Mechanical Ventilator 40 11/30/18 19:09 66 21 40 Height (Feet): 5 Height (Inches): 5.00 Weight (Pounds): 212 General Appearance: WD/WN, no acute distress HEENT: normocephalic, atraumatic, anicteric, mucous membranes moist, PERRL, EOMI, pharynx normal, supple, no JVD, status post trach, thrush Respiratory/Chest: chest wall non-tender, lungs clear, no respiratory distress , no accessory muscle use, decreased breath sounds Cardiovascular: normal peripheral pulses, normal rate, regular rhythm, no gallop/murmur, no JVD Abdomen: normal bowel sounds, soft, non tender, no organomegaly, non distended , no mass, no scars Genitourinary: normal external genitalia Extremities: no cyanosis, no clubbing Skin: no rash, no lesions, no ulcers 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: epic director 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 normal, no motor/sensory deficits, abnormal gait, alert Lymphatic: no neck adenopathy, no groin adenopathy Musculoskeletal: normal muscle bulk, no effusion Microbiology Date/Time Source Procedure Growth Status 11/30/18 17:33 Stool Clostridium difficile Toxin Assay - Final Complete Laboratory Tests Test 12/01/18 04:00 White Blood Count 7.7 K/UL (4.8-10.8) Red Blood Count 4.62 M/UL (4.70-6.10) L Hemoglobin 11.6 G/DL (14.2-18.0) L Hematocrit 37.7 % (42.0-52.0) L Mean Corpuscular Volume 82 FL (80-99) Mean Corpuscular Hemoglobin 25.1 PG (27.0-31.0) L Mean Corpuscular Hemoglobin Concent 30.8 G/DL (32.0-36.0) L Red Cell Distribution Width 17.1 % (11.6-14.8) H Platelet Count 218 K/UL (150-450) Mean Platelet Volume 8.8 FL (6.5-10.1) Neutrophils (%) (Auto) 70.3 % (45.0-75.0) Lymphocytes (%) (Auto) 21.3 % (20.0-45.0) Monocytes (%) (Auto) 7.1 % (1.0-10.0) Eosinophils (%) (Auto) 0.0 % (0.0-3.0) Basophils (%) (Auto) 1.3 % (0.0-2.0) Sodium Level 134 MMOL/L (136-145) L Potassium Level 4.3 MMOL/L (3.5-5.1) Chloride Level 95 MMOL/L (98-107) L Carbon Dioxide Level 30 MMOL/L (21-32) Anion Gap 9 mmol/L (5-15) Blood Urea Nitrogen 59 mg/dL (7-18) H Creatinine 6.4 MG/DL (0.55-1.30) H Estimat Glomerular Filtration Rate 8.8 mL/min (>60) Glucose Level 132 MG/DL (74-106) H Calcium Level 8.9 MG/DL (8.5-10.1) Phosphorus Level 3.9 MG/DL (2.5-4.9) Magnesium Level 2.6 MG/DL (1.8-2.4) H Total Bilirubin 0.3 MG/DL (0.2-1.0) Aspartate Amino Transf (AST/SGOT) 14 U/L (15-37) L Alanine Aminotransferase (ALT/SGPT) 13 U/L (12-78) Alkaline Phosphatase 136 U/L (46-116) H Total Protein 6.8 G/DL (6.4-8.2) Albumin 2.2 G/DL (3.4-5.0) L Globulin 4.6 g/dL Albumin/Globulin Ratio 0.5 (1.0-2.7) L Current Medications Medications (Trade) Dose Ordered Sig/Aleks Route PRN Reason Start Time Stop Time Status Last Admin Dose Admin Acetaminophen (Tylenol) 650 mg Q4H PRN NG Mild Pain/Temp > 100.5 11/12/18 19:00 12/12/18 18:47 11/28/18 05:31 Acetaminophen (Tylenol) 650 mg Q8H GT 11/28/18 13:15 12/28/18 13:14 12/01/18 13:16 Amlodipine Besylate (Norvasc) 2.5 mg DAILY GT 11/22/18 09:00 12/22/18 08:59 12/01/18 08:44 Aspirin (ASA) 81 mg DAILY GT 11/20/18 09:00 12/20/18 08:59 12/01/18 08:44 Atorvastatin Calcium (Lipitor) 10 mg BEDTIME NG 11/12/18 21:00 12/02/18 20:59 11/30/18 21:10 Chlorhexidine Gluconate (Glo-Hex 2%) 1 applic DAILY@1999 TOPIC 11/11/18 20:00 12/08/18 19:59 11/30/18 20:23 Collagenase (Santyl) 1 applic DAILY@2099 TOPIC 11/14/18 21:00 12/14/18 20:59 11/30/18 21:29 Docusate Sodium (Colace) 100 mg EVERY 8 HOURS PRN GT constipation 11/24/18 18:51 12/20/18 18:50 Hydralazine HCl (Apresoline) 10 mg Q6H PRN IV For High Blood Pressure 11/11/18 14:39 12/11/18 14:38 Lactulose (Cephulac) 20 gm THREE TIMES A DAY PRN GT Constipation 11/24/18 18:51 12/23/18 18:50 Lansoprazole (Prevacid) 30 mg BID GT 11/20/18 09:00 12/20/18 08:59 12/01/18 17:23 Micafungin Sodium 100 mg/Sodium Chloride 110 ml @ 110 mls/hr Q24H IVPB 11/13/18 18:00 12/04/18 23:59 12/01/18 17:23 Nicotine (Nicoderm) 1 patch Q24H TDERMAL 11/11/18 22:15 12/01/18 22:14 11/30/18 22:15 Nystatin (Nystatin) 5 ml TID ORAL 11/29/18 18:00 12/06/18 17:59 12/01/18 17:23 Olanzapine (ZyPREXA) 2.5 mg BEDTIME NG 11/13/18 21:00 12/13/18 20:59 11/30/18 21:24 Olanzapine (ZyPREXA) 2.5 mg Q6H PRN ORAL agitation 11/15/18 23:00 12/15/18 22:59 Polyethylene Glycol (Miralax) 17 gm BEDTIME ORAL 11/23/18 21:00 12/23/18 20:59 11/30/18 21:10 Polyethylene Glycol (Miralax) 17 gm DAILYPRN PRN NG Constipation 11/12/18 19:00 12/11/18 15:29 11/13/18 05:30 Sevelamer Carbonate (Renvela) 800 mg Q8HR GT 11/20/18 14:00 12/20/18 13:59 12/01/18 13:16 Tacrolimus (Prograf) 2 mg MoWeFr@0000,1200 ORAL 11/13/18 00:00 12/02/18 00:00 11/30/18 12:29 Tacrolimus (Prograf) 2 mg SuTuThSa@0900,2100 ORAL 11/17/18 21:00 12/17/18 20:59 12/01/18 08:59 Tramadol HCl (Ultram) 50 mg Q4H PRN GT For Moderate pain 11/27/18 15:45 12/04/18 15:31 12/01/18 08:59 Francois Landis M.D. Dec 01, 2018 17:30
[2018-12-01 20:00] VITALS: BP 157/92
[2018-12-01] MEDS: Dyna-Hex 2% Top Sol 2oz TOPIC SCH (20:34)
[2018-12-01] MEDS: OLANZapine 2.5mg tab NG SCH (20:34)
[2018-12-01] MEDS: Miralax 17gm pkt ORAL SCH (20:36)
[2018-12-01] MEDS ORDERED: NovoLOG Insulin Flexpen SUBQ SCH (21:00)
--- NOTE | 2018-12-01 21:29 | Psych Consult Progress Note ---
Psychiatry Progress Note Psychiatry Progress Note Medications Current Medications Medications (Trade) Dose Ordered Sig/Aleks Route PRN Reason Start Time Stop Time Status Last Admin Dose Admin Acetaminophen (Tylenol) 650 mg Q4H PRN NG Mild Pain/Temp > 100.5 11/12/18 19:00 12/12/18 18:47 11/28/18 05:31 Acetaminophen (Tylenol) 650 mg Q8H GT 11/28/18 13:15 12/28/18 13:14 12/01/18 20:35 Amlodipine Besylate (Norvasc) 2.5 mg DAILY GT 11/22/18 09:00 12/22/18 08:59 12/01/18 08:44 Aspirin (ASA) 81 mg DAILY GT 11/20/18 09:00 12/20/18 08:59 12/01/18 08:44 Atorvastatin Calcium (Lipitor) 10 mg BEDTIME NG 12/01/18 21:00 12/21/18 20:59 Chlorhexidine Gluconate (Glo-Hex 2%) 1 applic DAILY@1999 TOPIC 11/11/18 20:00 12/08/18 19:59 12/01/18 20:34 Collagenase (Santyl) 1 applic DAILY@2099 TOPIC 11/14/18 21:00 12/14/18 20:59 11/30/18 21:29 Dextrose (Dextrose 50%) 25 ml Q30M PRN IV Hypoglycemia 12/01/18 19:30 12/31/18 19:29 Dextrose (Dextrose 50%) 50 ml Q30M PRN IV Hypoglycemia 12/01/18 19:30 12/31/18 19:29 Docusate Sodium (Colace) 100 mg EVERY 8 HOURS PRN GT constipation 11/24/18 18:51 12/20/18 18:50 Hydralazine HCl (Apresoline) 10 mg Q6H PRN IV For High Blood Pressure 11/11/18 14:39 12/11/18 14:38 Insulin Aspart (NovoLOG) EVERY 6 HOURS SUBQ 12/02/18 00:00 12/31/18 20:59 Lactulose (Cephulac) 20 gm THREE TIMES A DAY PRN GT Constipation 11/24/18 18:51 12/23/18 18:50 Lansoprazole (Prevacid) 30 mg BID GT 11/20/18 09:00 12/20/18 08:59 12/01/18 17:23 Micafungin Sodium 100 mg/Sodium Chloride 110 ml @ 110 mls/hr Q24H IVPB 11/13/18 18:00 12/04/18 23:59 12/01/18 17:23 Nicotine (Nicoderm) 1 patch Q24H TDERMAL 12/01/18 22:15 12/21/18 22:14 Nystatin (Nystatin) 5 ml TID ORAL 11/29/18 18:00 12/06/18 17:59 12/01/18 17:23 Olanzapine (ZyPREXA) 2.5 mg BEDTIME NG 11/13/18 21:00 12/13/18 20:59 12/01/18 20:34 Olanzapine (ZyPREXA) 2.5 mg Q6H PRN ORAL agitation 11/15/18 23:00 12/15/18 22:59 Polyethylene Glycol (Miralax) 17 gm BEDTIME ORAL 11/23/18 21:00 12/23/18 20:59 11/30/18 21:10 Polyethylene Glycol (Miralax) 17 gm DAILYPRN PRN NG Constipation 11/12/18 19:00 12/11/18 15:29 11/13/18 05:30 Sevelamer Carbonate (Renvela) 800 mg Q8HR GT 11/20/18 14:00 12/20/18 13:59 12/01/18 13:16 Tacrolimus (Prograf) 2 mg MoWeFr@0000,1200 ORAL 12/02/18 00:00 12/21/18 00:00 Tacrolimus (Prograf) 2 mg SuTuThSa@0900,2100 ORAL 11/17/18 21:00 12/17/18 20:59 12/01/18 20:34 Tramadol HCl (Ultram) 50 mg Q4H PRN GT For Moderate pain 11/27/18 15:45 12/04/18 15:31 12/01/18 18:52 Problems: (1) Encephalopathy acute Status: Chronic Neurological/Psychiatric: Reports: anxiety, depressed Allergies: Coded Allergies: CEPHALEXIN (Unverified Allergy, Unknown, 02/24/14) SULFAMETHOXAZOLE (Unverified Allergy, Unknown, 02/24/14) TRIMETHOPRIM (Unverified Allergy, Unknown, 02/24/14) Objective Data Height (Feet): 5 Height (Inches): 5.00 Weight (Pounds): 212 General Appearance: WD/WN, no apparent distress, alert Assessment/Plan Problem List: (1) Encephalopathy acute ICD Codes: G93.40 - Encephalopathy, unspecified SNOMED: 22272314, [id number] Status: stable Assessment: Zyprexa 2.5mg po qhs haldol IM prn the pt lacks capacity ativan 1mg gt prior to weaning off from vent Diagnoses [place] I: see above Results of Pharmacotherapy: Zyprexa 2.5mg po qhs haldol IM prn the pt lacks capacity ativan 1mg gt prior to weaning off from vent Jeffrey Lala MD Dec 01, 2018 21:29
--- NOTE | 2018-12-01 22:01 | Cardiology Progress Note ---
Assessment/Plan Status: stable Assessment/Plan Assessment/Plan Assessment/Plan 1. Troponin leak with no chest pain. Hx of CABG. Due to renal failure. On Coreg 6.25 mg bid, aspirin and Lipitor 2. S/P CABG - outpatient stress test 3. Nonsustained ventricular tachycardia. 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 EF 55%. No Syncope, monitor electrolytes 4. Congestive heart failure. On hemodialysis 5. End-stage renal disease, on hemodialysis per Dr. Stevens 6. Status post right sided [employer] dual chamber pacemaker with Nl Fx. 7. Right foot ulcer. Antibiotic per Dr. Landis. FU by Dr. Huizar 8. History of liver transplant on Prograf 9. Respiratory failure, ? etiology anaphylaxis. S/P Emergency tracheostomy. Weaned off the vent on T Piece 10. Pleural effusion. FU Dr. Mendoza 11. Dysphagia, S/P PEG Dispo planning [place] when approved Subjective Cardiovascular: Reports: no symptoms Respiratory: Reports: no symptoms Gastrointestinal/Abdominal: Reports: no symptoms Genitourinary: Reports: no symptoms Subjective [facility] [facility] Awaiting placement, referral faxed No acute events, vitals stable, CV stable, v paced, trach stable Objective Last 24 Hour Vital Signs Date Time Temp Pulse Resp B/P (MAP) Pulse Ox O2 Delivery O2 Flow Rate FiO2 12/01/18 20:00 40 12/01/18 20:00 97.7 82 24 157/92 (113) 99 12/01/18 20:00 Mechanical Ventilator 12/01/18 19:15 78 12/01/18 19:12 Mechanical Ventilator 40 12/01/18 19:12 99 Mechanical Ventilator 40 12/01/18 19:08 78 21 40 12/01/18 17:15 84 26 40 12/01/18 16:00 40 12/01/18 16:00 96.8 76 18 104/66 (79) 99 12/01/18 16:00 Mechanical Ventilator 12/01/18 15:30 102 30 40 12/01/18 15:14 75 12/01/18 15:10 74 18 40 12/01/18 15:08 76 18 40 12/01/18 12:50 64 21 40 12/01/18 12:00 Mechanical Ventilator 12/01/18 12:00 40 12/01/18 12:00 97.3 77 20 105/74 (84) 100 12/01/18 11:39 77 12/01/18 11:25 72 19 40 12/01/18 08:57 69 21 40 12/01/18 08:44 78 126/50 12/01/18 08:00 Mechanical Ventilator 12/01/18 08:00 40 12/01/18 08:00 97.9 78 20 126/50 (75) 100 12/01/18 07:38 80 12/01/18 07:12 68 26 40 12/01/18 07:11 96 Mechanical Ventilator 30 12/01/18 07:11 Mechanical Ventilator 30 12/01/18 05:23 75 20 40 12/01/18 04:00 97.6 72 18 101/66 (78) 100 12/01/18 04:00 Mechanical Ventilator 12/01/18 04:00 73 12/01/18 04:00 40 12/01/18 03:03 68 22 40 12/01/18 01:15 72 23 40 12/01/18 00:00 75 12/01/18 00:00 Mechanical Ventilator 12/01/18 00:00 97.7 80 20 117/60 (79) 100 11/30/18 22:59 76 20 40 General Appearance: no apparent distress, alert, on vent EENT: PERRL/EOMI, normal ENT inspection, TMs normal, pharynx normal Neck: non-tender, normal alignment, supple, normal inspection, no JVD Rhythm: NSR Cardiovascular: normal peripheral pulses, normal rate, regular rhythm Respiratory/Chest: chest wall non-tender, lungs clear, no respiratory distress Abdomen: normal bowel sounds, soft, no organomegaly, abnormal bowel sounds Extremities: normal range of motion, non-tender, normal inspection, no calf tenderness, no swelling Neurologic: info analyst 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 normal, no motor/sensory deficits Intake and Output 11/30/18 12/01/18 19:00 07:00 Intake Total 1050 ml 540 ml Output Total 4000 ml Balance -2950 ml 540 ml Free Water 400 ml IV Total 110 ml Tube Feeding 540 ml 540 ml Hemodialysis UF 4000 ml # Bowel Movements 4 4 Laboratory Tests Test 12/01/18 04:00 White Blood Count 7.7 K/UL (4.8-10.8) Red Blood Count 4.62 M/UL (4.70-6.10) L Hemoglobin 11.6 G/DL (14.2-18.0) L Hematocrit 37.7 % (42.0-52.0) L Mean Corpuscular Volume 82 FL (80-99) Mean Corpuscular Hemoglobin 25.1 PG (27.0-31.0) L Mean Corpuscular Hemoglobin Concent 30.8 G/DL (32.0-36.0) L Red Cell Distribution Width 17.1 % (11.6-14.8) H Platelet Count 218 K/UL (150-450) Mean Platelet Volume 8.8 FL (6.5-10.1) Neutrophils (%) (Auto) 70.3 % (45.0-75.0) Lymphocytes (%) (Auto) 21.3 % (20.0-45.0) Monocytes (%) (Auto) 7.1 % (1.0-10.0) Eosinophils (%) (Auto) 0.0 % (0.0-3.0) Basophils (%) (Auto) 1.3 % (0.0-2.0) Sodium Level 134 MMOL/L (136-145) L Potassium Level 4.3 MMOL/L (3.5-5.1) Chloride Level 95 MMOL/L (98-107) L Carbon Dioxide Level 30 MMOL/L (21-32) Anion Gap 9 mmol/L (5-15) Blood Urea Nitrogen 59 mg/dL (7-18) H Creatinine 6.4 MG/DL (0.55-1.30) H Estimat Glomerular Filtration Rate 8.8 mL/min (>60) Glucose Level 132 MG/DL (74-106) H Calcium Level 8.9 MG/DL (8.5-10.1) Phosphorus Level 3.9 MG/DL (2.5-4.9) Magnesium Level 2.6 MG/DL (1.8-2.4) H Total Bilirubin 0.3 MG/DL (0.2-1.0) Aspartate Amino Transf (AST/SGOT) 14 U/L (15-37) L Alanine Aminotransferase (ALT/SGPT) 13 U/L (12-78) Alkaline Phosphatase 136 U/L (46-116) H Total Protein 6.8 G/DL (6.4-8.2) Albumin 2.2 G/DL (3.4-5.0) L Globulin 4.6 g/dL Albumin/Globulin Ratio 0.5 (1.0-2.7) L Microbiology Date/Time Source Procedure Growth Status 11/30/18 17:33 Stool Clostridium difficile Toxin Assay - Final Complete Filsostayc,Dhruv Osei MD Dec 01, 2018 22:01
[2018-12-02] VITALS: BP 142/82
[2018-12-02] MEDS: traMADol 50mg tab GT PRN ×3 (03:35→12:28)
[2018-12-02 04:00] VITALS: BP 126/94
[2018-12-02 04:12] LABS: BASOPHILS % (AUTO) 0.9 % (0.0-2.0); HEMATOCRIT 36.2 % (42.0-52.0); HEMOGLOBIN 11.2 G/DL (14.2-18.0); LYMPHOCYTES % (AUTO) 12.6 % (20.0-45.0); MEAN CORPUSCULAR VOLUME 81 FL (80-99); MONOCYTES % (AUTO) 6.7 % (1.0-10.0); NEUTROPHILS % (AUTO) 79.8 % (45.0-75.0); PLATELET COUNT 195 K/UL (150-450); RED BLOOD COUNT 4.47 M/UL (4.70-6.10); RED CELL DISTRIBUTION WIDTH 17.1 % (11.6-14.8); WHITE BLOOD COUNT 8.4 K/UL (4.8-10.8)
[2018-12-02 04:26] LABS: ANION GAP 9 mmol/L (5-15); BLOOD UREA NITROGEN 72 mg/dL (7-18); CALCIUM 9.3 MG/DL (8.5-10.1); CARBON DIOXIDE 29 MMOL/L (21-32); CHLORIDE 94 MMOL/L (98-107); CREATININE 7.1 MG/DL (0.55-1.30); POTASSIUM 4.9 MMOL/L (3.5-5.1); SODIUM 132 MMOL/L (136-145)
[2018-12-02] MEDS: Acetaminophen 650mg/20.3ml GT SCH ×3 (05:15→21:09)
[2018-12-02] MEDS: Renvela 800mg Pkt GT SCH ×3 (06:12→21:12)
[2018-12-02] MEDS: NovoLOG Insulin Flexpen SUBQ SCH ×4 (06:12→23:17)
[2018-12-02 08:00] VITALS: BP 142/73
[2018-12-02] MEDS: Nystatin Susp 500,000 units/5ml ORAL SCH ×3 (08:35→17:17)
[2018-12-02] MEDS: Aspirin Baby 81mg GT SCH (08:35)
--- NOTE | 2018-12-02 09:31 | General Progress Note ---
Assessment/Plan Problem List: (1) Transplant ICD Codes: Z94.9 - Transplanted organ and tissue status, unspecified SNOMED: 674667101 (2) HTN (hypertension) ICD Codes: I10 - Essential (primary) hypertension SNOMED: 98339347 (3) Pacemaker ICD Codes: Z95.0 - Presence of cardiac pacemaker SNOMED: 483661446 (4) CHF (congestive heart failure) ICD Codes: I50.9 - Heart failure, unspecified SNOMED: 51921271 (5) DM (diabetes mellitus) ICD Codes: E11.9 - Type 2 diabetes mellitus without complications SNOMED: 02847375 (6) Foot ulcer ICD Codes: L97.509 - Non-pressure chronic ulcer of other part of unspecified foot with unspecified severity SNOMED: 04489704 Qualifiers: Qualified Codes: L97.511 - Non-pressure chronic ulcer of other part of right foot limited to breakdown of skin (7) ESRD (end stage renal disease) on dialysis ICD Codes: N18.6 - End stage renal disease; Z99.2 - Dependence on renal dialysis SNOMED: 169466882 Assessment: GTF HD per nephro fu labs supportive care Diagnoses Results of Pharmacotherapy: GTF fu labs cont tacrolimus pending dc Subjective ROS Limited/Unobtainable: No Allergies: Coded Allergies: CEPHALEXIN (Unverified Allergy, Unknown, 02/24/14) SULFAMETHOXAZOLE (Unverified Allergy, Unknown, 02/24/14) TRIMETHOPRIM (Unverified Allergy, Unknown, 02/24/14) Subjective he pulled his NGT again Objective Last 24 Hour Vital Signs Date Time Temp Pulse Resp B/P (MAP) Pulse Ox O2 Delivery O2 Flow Rate FiO2 12/02/18 09:02 84 26 40 12/02/18 08:23 96 142/73 12/02/18 08:00 94 12/02/18 08:00 40 12/02/18 08:00 98.4 96 26 142/73 (96) 100 12/02/18 06:50 100 Mechanical Ventilator 40 12/02/18 06:50 Mechanical Ventilator 40 12/02/18 06:50 87 23 40 12/02/18 05:03 84 22 40 12/02/18 04:00 93 12/02/18 04:00 98.1 94 20 126/94 (105) 100 12/02/18 04:00 40 12/02/18 04:00 Mechanical Ventilator 12/02/18 03:11 79 22 40 12/02/18 01:15 72 21 40 12/02/18 00:00 97.7 87 20 142/82 (102) 100 12/02/18 00:00 Mechanical Ventilator 12/02/18 00:00 74 12/01/18 23:57 97.7 12/01/18 23:01 77 22 40 12/01/18 21:15 79 22 40 12/01/18 20:00 40 12/01/18 20:00 97.7 82 24 157/92 (113) 99 12/01/18 20:00 Mechanical Ventilator 12/01/18 19:15 78 12/01/18 19:12 Mechanical Ventilator 40 12/01/18 19:12 99 Mechanical Ventilator 40 12/01/18 19:08 78 21 40 12/01/18 17:15 84 26 40 12/01/18 16:00 40 12/01/18 16:00 96.8 76 18 104/66 (79) 99 12/01/18 16:00 Mechanical Ventilator 12/01/18 15:30 102 30 40 12/01/18 15:14 75 12/01/18 15:10 74 18 40 12/01/18 15:08 76 18 40 12/01/18 12:50 64 21 40 12/01/18 12:00 Mechanical Ventilator 12/01/18 12:00 40 12/01/18 12:00 97.3 77 20 105/74 (84) 100 12/01/18 11:39 77 12/01/18 11:25 72 19 40 Intake and Output 12/01/18 12/02/18 19:00 07:00 Intake Total 600 ml 645 ml Balance 600 ml 645 ml Free Water 30 ml 150 ml Tube Feeding 540 ml 495 ml Blood Product 30 ml # Bowel Movements 2 Laboratory Tests 12/02/18 04:00: White Blood Count 8.4, Red Blood Count 4.47L, Hemoglobin 11.2L, Hematocrit 36.2L , Mean Corpuscular Volume 81, Mean Corpuscular Hemoglobin 25.1L, Mean Corpuscular Hemoglobin Concent 31.0L, Red Cell Distribution Width 17.1H, Platelet Count 195, Mean Platelet Volume 7.4, Neutrophils (%) (Auto) 79.8H, Lymphocytes (%) (Auto) 12.6L, Monocytes (%) (Auto) 6.7, Eosinophils (%) (Auto) 0.0, Basophils (%) (Auto) 0.9, Sodium Level 132L, Potassium Level 4.9, Chloride Level 94L, Carbon Dioxide Level 29, Anion Gap 9, Blood Urea Nitrogen 72H, Creatinine 7.1H, Estimat Glomerular Filtration Rate 7.8, Glucose Level 131H, Calcium Level 9.3 Height (Feet): 5 Height (Inches): 5.00 Weight (Pounds): 210 General Appearance: no apparent distress EENT: normal ENT inspection Neck: supple Cardiovascular: normal rate Respiratory/Chest: decreased breath sounds Abdomen: normal bowel sounds, non tender, soft Extremities: non-tender Jorge Escalera MD Dec 02, 2018 09:31
--- NOTE | 2018-12-02 11:01 | Nephrology Progress Note ---
Assessment/Plan Problem List: (1) ESRD (end stage renal disease) on dialysis (2) Foot ulcer (3) CHF (congestive heart failure) (4) Pacemaker (5) Acute respiratory failure Assessment: with Co2 retention Assessment ESRD with high K and SOB on admit Foot ulcer, likely infected High Troponin likely NSTMI Pacer , Pleural effusion s/p CABGS s/p Liver transplant Plan Tylenol RTC pain, and tramadol as needed Now has tracheostomy and PEG Adjust BP meds HD next Antibiotics by ID start tube feeding / hasPEG per cardio and ID Podiatry and Vascular surgical fu PRN tramadol for pain ? DC planning? ALSO COVERING MEDCINE FOR DR BERG Subjective ROS Limited/Unobtainable: No Objective Objective Last 24 Hour Vital Signs Date Time Temp Pulse Resp B/P (MAP) Pulse Ox O2 Delivery O2 Flow Rate FiO2 12/02/18 09:02 84 26 40 12/02/18 08:23 96 142/73 12/02/18 08:00 94 12/02/18 08:00 40 12/02/18 08:00 Mechanical Ventilator 12/02/18 08:00 98.4 96 26 142/73 (96) 100 12/02/18 06:50 100 Mechanical Ventilator 40 12/02/18 06:50 Mechanical Ventilator 40 12/02/18 06:50 87 23 40 12/02/18 05:03 84 22 40 12/02/18 04:00 93 12/02/18 04:00 98.1 94 20 126/94 (105) 100 12/02/18 04:00 40 12/02/18 04:00 Mechanical Ventilator 12/02/18 03:11 79 22 40 12/02/18 01:15 72 21 40 12/02/18 00:00 97.7 87 20 142/82 (102) 100 12/02/18 00:00 Mechanical Ventilator 12/02/18 00:00 74 12/01/18 23:57 97.7 12/01/18 23:01 77 22 40 12/01/18 21:15 79 22 40 12/01/18 20:00 40 12/01/18 20:00 97.7 82 24 157/92 (113) 99 12/01/18 20:00 Mechanical Ventilator 12/01/18 19:15 78 12/01/18 19:12 Mechanical Ventilator 40 12/01/18 19:12 99 Mechanical Ventilator 40 12/01/18 19:08 78 21 40 12/01/18 17:15 84 26 40 12/01/18 16:00 40 12/01/18 16:00 96.8 76 18 104/66 (79) 99 12/01/18 16:00 Mechanical Ventilator 12/01/18 15:30 102 30 40 12/01/18 15:14 75 12/01/18 15:10 74 18 40 12/01/18 15:08 76 18 40 12/01/18 12:50 64 21 40 12/01/18 12:00 Mechanical Ventilator 12/01/18 12:00 40 12/01/18 12:00 97.3 77 20 105/74 (84) 100 12/01/18 11:39 77 12/01/18 11:25 72 19 40 Intake and Output 12/01/18 12/02/18 19:00 07:00 Intake Total 600 ml 645 ml Balance 600 ml 645 ml Free Water 30 ml 150 ml Tube Feeding 540 ml 495 ml Blood Product 30 ml # Bowel Movements 2 Laboratory Tests 12/02/18 04:00: White Blood Count 8.4, Red Blood Count 4.47L, Hemoglobin 11.2L, Hematocrit 36.2L , Mean Corpuscular Volume 81, Mean Corpuscular Hemoglobin 25.1L, Mean Corpuscular Hemoglobin Concent 31.0L, Red Cell Distribution Width 17.1H, Platelet Count 195, Mean Platelet Volume 7.4, Neutrophils (%) (Auto) 79.8H, Lymphocytes (%) (Auto) 12.6L, Monocytes (%) (Auto) 6.7, Eosinophils (%) (Auto) 0.0, Basophils (%) (Auto) 0.9, Sodium Level 132L, Potassium Level 4.9, Chloride Level 94L, Carbon Dioxide Level 29, Anion Gap 9, Blood Urea Nitrogen 72H, Creatinine 7.1H, Estimat Glomerular Filtration Rate 7.8, Glucose Level 131H, Calcium Level 9.3 Height (Feet): 5 Height (Inches): 5.00 Weight (Pounds): 210 EENT: other - trach Cardiovascular: tachycardia Respiratory/Chest: decreased breath sounds Abdomen: distended, other - PEG Objective no other change Nakul Stevens MD Dec 02, 2018 11:00
[2018-12-02 12:00] VITALS: BP 123/104
--- NOTE | 2018-12-02 12:01 | Pulmonology Progress Note ---
Assessment/Plan Assessment/Plan 1. Resp failure, hypercapneic 2. End-stage renal disease, on dialysis, status post multiple upper extremity vascular procedures. 3. Coronary artery bypass surgery. 4. Diabetes. 5. Dysphonia, tongue swelling; s/p trach PLAN: not tolerating weaning with IMV/PSV tolerates feeds disc w RN marybeth groin IV - not in use, risk of infx working on placement, difficult due to insurance Subjective Constitutional: Reports: no symptoms Respiratory: Denies: shortness of breath Allergies: Coded Allergies: CEPHALEXIN (Unverified Allergy, Unknown, 02/24/14) SULFAMETHOXAZOLE (Unverified Allergy, Unknown, 02/24/14) TRIMETHOPRIM (Unverified Allergy, Unknown, 02/24/14) Objective Last 24 Hour Vital Signs Date Time Temp Pulse Resp B/P (MAP) Pulse Ox O2 Delivery O2 Flow Rate FiO2 12/02/18 11:01 87 24 40 12/02/18 09:02 84 26 40 12/02/18 08:23 96 142/73 12/02/18 08:00 94 12/02/18 08:00 40 12/02/18 08:00 Mechanical Ventilator 12/02/18 08:00 98.4 96 26 142/73 (96) 100 12/02/18 06:50 100 Mechanical Ventilator 40 12/02/18 06:50 Mechanical Ventilator 40 12/02/18 06:50 87 23 40 12/02/18 05:03 84 22 40 12/02/18 04:00 93 12/02/18 04:00 98.1 94 20 126/94 (105) 100 12/02/18 04:00 40 12/02/18 04:00 Mechanical Ventilator 12/02/18 03:11 79 22 40 12/02/18 01:15 72 21 40 12/02/18 00:00 97.7 87 20 142/82 (102) 100 12/02/18 00:00 Mechanical Ventilator 12/02/18 00:00 74 12/01/18 23:57 97.7 12/01/18 23:01 77 22 40 12/01/18 21:15 79 22 40 12/01/18 20:00 40 12/01/18 20:00 97.7 82 24 157/92 (113) 99 12/01/18 20:00 Mechanical Ventilator 12/01/18 19:15 78 12/01/18 19:12 Mechanical Ventilator 40 12/01/18 19:12 99 Mechanical Ventilator 40 12/01/18 19:08 78 21 40 12/01/18 17:15 84 26 40 12/01/18 16:00 40 12/01/18 16:00 96.8 76 18 104/66 (79) 99 12/01/18 16:00 Mechanical Ventilator 12/01/18 15:30 102 30 40 12/01/18 15:14 75 12/01/18 15:10 74 18 40 12/01/18 15:08 76 18 40 12/01/18 12:50 64 21 40 Intake and Output 12/01/18 12/02/18 19:00 07:00 Intake Total 600 ml 690 ml Balance 600 ml 690 ml Free Water 30 ml 150 ml Tube Feeding 540 ml 540 ml Blood Product 30 ml # Bowel Movements 2 Objective trach on vent General Appearance: no acute distress HEENT: atraumatic Respiratory/Chest: lungs clear Cardiovascular: normal rate Microbiology Date/Time Source Procedure Growth Status 11/30/18 17:33 Stool Clostridium difficile Toxin Assay - Final Complete Laboratory Tests 12/02/18 04:00: White Blood Count 8.4, Red Blood Count 4.47L, Hemoglobin 11.2L, Hematocrit 36.2L , Mean Corpuscular Volume 81, Mean Corpuscular Hemoglobin 25.1L, Mean Corpuscular Hemoglobin Concent 31.0L, Red Cell Distribution Width 17.1H, Platelet Count 195, Mean Platelet Volume 7.4, Neutrophils (%) (Auto) 79.8H, Lymphocytes (%) (Auto) 12.6L, Monocytes (%) (Auto) 6.7, Eosinophils (%) (Auto) 0.0, Basophils (%) (Auto) 0.9, Sodium Level 132L, Potassium Level 4.9, Chloride Level 94L, Carbon Dioxide Level 29, Anion Gap 9, Blood Urea Nitrogen 72H, Creatinine 7.1H, Estimat Glomerular Filtration Rate 7.8, Glucose Level 131H, Calcium Level 9.3 Current Medications Medications (Trade) Dose Ordered Sig/Aleks Route PRN Reason Start Time Stop Time Status Last Admin Dose Admin Acetaminophen (Tylenol) 650 mg Q4H PRN NG Mild Pain/Temp > 100.5 11/12/18 19:00 12/12/18 18:47 11/28/18 05:31 Acetaminophen (Tylenol) 650 mg Q8H GT 11/28/18 13:15 12/28/18 13:14 12/01/18 20:35 Amlodipine Besylate (Norvasc) 2.5 mg DAILY GT 11/22/18 09:00 12/22/18 08:59 12/01/18 08:44 Aspirin (ASA) 81 mg DAILY GT 11/20/18 09:00 12/20/18 08:59 12/02/18 08:35 Atorvastatin Calcium (Lipitor) 10 mg BEDTIME NG 12/01/18 21:00 12/21/18 20:59 Chlorhexidine Gluconate (Glo-Hex 2%) 1 applic DAILY@1999 TOPIC 11/11/18 20:00 12/08/18 19:59 12/01/18 20:34 Collagenase (Santyl) 1 applic DAILY@2099 TOPIC 11/14/18 21:00 12/14/18 20:59 11/30/18 21:29 Dextrose (Dextrose 50%) 25 ml Q30M PRN IV Hypoglycemia 12/01/18 19:30 12/31/18 19:29 Dextrose (Dextrose 50%) 50 ml Q30M PRN IV Hypoglycemia 12/01/18 19:30 12/31/18 19:29 Docusate Sodium (Colace) 100 mg EVERY 8 HOURS PRN GT constipation 11/24/18 18:51 12/20/18 18:50 Hydralazine HCl (Apresoline) 10 mg Q6H PRN IV For High Blood Pressure 11/11/18 14:39 12/11/18 14:38 Insulin Aspart (NovoLOG) EVERY 6 HOURS SUBQ 12/02/18 00:00 12/31/18 20:59 12/02/18 06:12 Lactulose (Cephulac) 20 gm THREE TIMES A DAY PRN GT Constipation 11/24/18 18:51 12/23/18 18:50 Lansoprazole (Prevacid) 30 mg BID GT 11/20/18 09:00 12/20/18 08:59 12/02/18 08:35 Micafungin Sodium 100 mg/Sodium Chloride 110 ml @ 110 mls/hr Q24H IVPB 11/13/18 18:00 12/04/18 23:59 12/01/18 17:23 Nicotine (Nicoderm) 1 patch Q24H TDERMAL 12/01/18 22:15 12/21/18 22:14 12/01/18 22:13 Nystatin (Nystatin) 5 ml TID ORAL 11/29/18 18:00 12/06/18 17:59 12/02/18 08:35 Olanzapine (ZyPREXA) 2.5 mg BEDTIME NG 11/13/18 21:00 12/13/18 20:59 12/01/18 20:34 Olanzapine (ZyPREXA) 2.5 mg Q6H PRN ORAL agitation 11/15/18 23:00 12/15/18 22:59 Polyethylene Glycol (Miralax) 17 gm BEDTIME ORAL 11/23/18 21:00 12/23/18 20:59 11/30/18 21:10 Polyethylene Glycol (Miralax) 17 gm DAILYPRN PRN NG Constipation 11/12/18 19:00 12/11/18 15:29 11/13/18 05:30 Sevelamer Carbonate (Renvela) 800 mg Q8HR GT 11/20/18 14:00 12/20/18 13:59 12/02/18 06:12 Tacrolimus (Prograf) 2 mg MoWeFr@0000,1200 ORAL 12/02/18 00:00 12/21/18 00:00 12/01/18 23:26 Tacrolimus (Prograf) 2 mg SuTuThSa@0900,2100 ORAL 11/17/18 21:00 12/17/18 20:59 12/01/18 20:34 Tramadol HCl (Ultram) 50 mg Q4H PRN GT For Moderate pain 11/27/18 15:45 12/04/18 15:31 12/02/18 08:35 Saroj Mendoza MD Dec 02, 2018 12:01
--- NOTE | 2018-12-02 15:18 | Cardiology Report ---
APPROVED REPORT EXAM: Two-dimensional and M-mode echocardiogram with Doppler and color Doppler. INDICATION Congestive Heart Failure M-Mode DIMENSIONS IVSd1.4 (0.7-1.1cm)Left Atrium (MM)3.7 (1.6-4.0cm) LVDd4.7 (3.5-5.6cm)Aortic Root3.4 (2.0-3.7cm) PWd1.3 (0.7-1.1cm)Aortic Cusp Exc.1.0 (1.5-2.0cm) IVSs1.3 cm LVDs3.7 (2.5-4.0cm) PWs1.4 cm Normal left ventricular chamber size . Severe global left ventriular hypokinesis . Left ventricular ejection fraction estimated to be 20-25%%. Mild left ventricular hypertrophy by 2-D. No evidence of pericardial effusion. Mild left atrial enlargement . Right ventricular hypokinesis. Heavy Aortic valve calcification with decreased cusp excursion c/w aortic stenosis. Thickened mitral valve leaflets with normal excursion, pt had a history of mitral valve replacement . Mild mitral annulus and aortic root calcification. Pulmonic valve not well visualized. IVC at size 2.0 cm without physiologic collapse . Pacemaker wire present in the right side chambers. A color flow and spectral Doppler study was performed and revealed: No aortic insufficiency . Peak aortic valve gradient of 27 mm Hg and a mean of 12 mmHg. Aortic valve area 1.5 cm2 calculated by continuity equation, c/w moderate to severe A.S. Mitral inflow velocities indicates possible pseudo normalization pattern implying moderately elevated left atrial pressure (Grade II ). Mild mitral regurgitation. Peak mitral valve gradient of 14 mm Hg and a mean of 4 mmHg. Mild tricuspid regurgitation. Tricuspid systolic velocities suggests peak right ventricular systolic pressure of 55mmHg,consistent with moderate pulmonary hypertension . Trace pulmonic regurgitation present .
[2018-12-02] MEDS ORDERED: NS 275ml ONE (15:50)
[2018-12-02 16:00] VITALS: BP 133/77
--- NOTE | 2018-12-02 17:28 | Infectious Diseases Prog Note ---
Assessment/Plan Problems: (1) Thrush, oral Assessment & Plan: continue local nystatin , stop micafungin, S/P almost three weeks empirically (2) HCV antibody positive Assessment & Plan: no evidence of active infection, with undetectable viral load , suspect due to previous infection , cleared, S/P liver transplant . (3) Foot ulcer Assessment & Plan: in diabetic patient , with MRSA , S/P vancomycin treatment with HD for two weeks , pending vascular eval and possible surgical debridement. bone scan ruled out osteomyelitis of the heel . follow up with [facility] (4) DM (diabetes mellitus) Assessment & Plan: recommend tight glycemic control to keep blood glucose between 100-140 (5) CHF (congestive heart failure) Assessment & Plan: on HD , renal is following, monitor daily weight (6) Encephalopathy acute Assessment & Plan: suspect metabolic, with high urea level, waxing and waning , now improved (7) Severe tongue swelling Assessment & Plan: improving , s/p tracheostomy to protect his airway since respiratory status worsened . now improving, pulmonary is following (8) Pleural effusion Assessment & Plan: recurrent on the right, with lung collapse , S/P thoracentesis X2 with removal of 1.5 cc of clear fluids. PREVIOUS culture were negative with negative cytology Subjective Constitutional: Reports: no symptoms HEENT: Reports: no symptoms Respiratory: Reports: no symptoms Breasts: Reports: no symptoms Cardiovascular: Reports: no symptoms Gastrointestinal/Abdominal: Reports: no symptoms Genitourinary: Reports: no symptoms Neurologic: Reports: no symptoms Psychiatric: Reports: no symptoms Skin: Reports: no symptoms Endocrine: Reports: no symptoms Hematologic: Reports: no symptoms Musculoskeletal: Reports: no symptoms Allergies: Coded Allergies: CEPHALEXIN (Unverified Allergy, Unknown, 02/24/14) SULFAMETHOXAZOLE (Unverified Allergy, Unknown, 02/24/14) TRIMETHOPRIM (Unverified Allergy, Unknown, 02/24/14) Subjective he was comfortable, has no facial swelling and mild tongue swelling , awake and responsive, no fever or chills, no significant secretions , no SOB . has less thrush on his tongue Objective Vital Signs Last 24 Hour Vital Signs Date Time Temp Pulse Resp B/P (MAP) Pulse Ox O2 Delivery O2 Flow Rate FiO2 12/02/18 16:00 98.0 78 24 133/77 (95) 100 12/02/18 16:00 Mechanical Ventilator 12/02/18 16:00 40 12/02/18 15:51 80 12/02/18 15:29 87 24 40 12/02/18 12:43 84 23 40 12/02/18 12:00 98.2 78 24 123/104 (110) 99 12/02/18 12:00 Mechanical Ventilator 12/02/18 12:00 40 12/02/18 12:00 78 12/02/18 11:01 87 24 40 12/02/18 09:02 84 26 40 12/02/18 08:23 96 142/73 12/02/18 08:00 94 12/02/18 08:00 40 12/02/18 08:00 Mechanical Ventilator 12/02/18 08:00 98.4 96 26 142/73 (96) 100 12/02/18 06:50 100 Mechanical Ventilator 40 12/02/18 06:50 Mechanical Ventilator 40 12/02/18 06:50 87 23 40 12/02/18 05:03 84 22 40 12/02/18 04:00 93 12/02/18 04:00 98.1 94 20 126/94 (105) 100 12/02/18 04:00 40 12/02/18 04:00 Mechanical Ventilator 12/02/18 03:11 79 22 40 12/02/18 01:15 72 21 40 12/02/18 00:00 97.7 87 20 142/82 (102) 100 12/02/18 00:00 Mechanical Ventilator 12/02/18 00:00 74 12/01/18 23:57 97.7 12/01/18 23:01 77 22 40 12/01/18 21:15 79 22 40 12/01/18 20:00 40 12/01/18 20:00 97.7 82 24 157/92 (113) 99 12/01/18 20:00 Mechanical Ventilator 12/01/18 19:15 78 12/01/18 19:12 Mechanical Ventilator 40 12/01/18 19:12 99 Mechanical Ventilator 40 12/01/18 19:08 78 21 40 Height (Feet): 5 Height (Inches): 5.00 Weight (Pounds): 210 General Appearance: WD/WN, no acute distress HEENT: normocephalic, atraumatic, anicteric, mucous membranes moist, PERRL, supple, no JVD, status post trach Respiratory/Chest: chest wall non-tender, no respiratory distress, no accessory muscle use, decreased breath sounds Cardiovascular: normal peripheral pulses, normal rate, regular rhythm, no gallop/murmur, no JVD Abdomen: normal bowel sounds, soft, non tender, no organomegaly, non distended , no mass, no scars Genitourinary: normal external genitalia Extremities: no cyanosis, no clubbing Skin: no rash, no lesions, ulcers 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: pastor 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 normal, no motor/sensory deficits, alert, responsive Lymphatic: no neck adenopathy, no groin adenopathy Musculoskeletal: normal muscle bulk, no effusion Microbiology Date/Time Source Procedure Growth Status 11/30/18 17:33 Stool Clostridium difficile Toxin Assay - Final Complete Laboratory Tests Test 12/02/18 04:00 White Blood Count 8.4 K/UL (4.8-10.8) Red Blood Count 4.47 M/UL (4.70-6.10) L Hemoglobin 11.2 G/DL (14.2-18.0) L Hematocrit 36.2 % (42.0-52.0) L Mean Corpuscular Volume 81 FL (80-99) Mean Corpuscular Hemoglobin 25.1 PG (27.0-31.0) L Mean Corpuscular Hemoglobin Concent 31.0 G/DL (32.0-36.0) L Red Cell Distribution Width 17.1 % (11.6-14.8) H Platelet Count 195 K/UL (150-450) Mean Platelet Volume 7.4 FL (6.5-10.1) Neutrophils (%) (Auto) 79.8 % (45.0-75.0) H Lymphocytes (%) (Auto) 12.6 % (20.0-45.0) L Monocytes (%) (Auto) 6.7 % (1.0-10.0) Eosinophils (%) (Auto) 0.0 % (0.0-3.0) Basophils (%) (Auto) 0.9 % (0.0-2.0) Sodium Level 132 MMOL/L (136-145) L Potassium Level 4.9 MMOL/L (3.5-5.1) Chloride Level 94 MMOL/L (98-107) L Carbon Dioxide Level 29 MMOL/L (21-32) Anion Gap 9 mmol/L (5-15) Blood Urea Nitrogen 72 mg/dL (7-18) H Creatinine 7.1 MG/DL (0.55-1.30) H Estimat Glomerular Filtration Rate 7.8 mL/min (>60) Glucose Level 131 MG/DL (74-106) H Calcium Level 9.3 MG/DL (8.5-10.1) Current Medications Medications (Trade) Dose Ordered Sig/Aleks Route PRN Reason Start Time Stop Time Status Last Admin Dose Admin Acetaminophen (Tylenol) 650 mg Q4H PRN NG Mild Pain/Temp > 100.5 11/12/18 19:00 12/12/18 18:47 11/28/18 05:31 Acetaminophen (Tylenol) 650 mg Q8H GT 11/28/18 13:15 12/28/18 13:14 12/02/18 13:39 Amlodipine Besylate (Norvasc) 2.5 mg DAILY GT 11/22/18 09:00 12/22/18 08:59 12/01/18 08:44 Aspirin (ASA) 81 mg DAILY GT 11/20/18 09:00 12/20/18 08:59 12/02/18 08:35 Atorvastatin Calcium (Lipitor) 10 mg BEDTIME NG 12/01/18 21:00 12/21/18 20:59 Collagenase (Santyl) 1 applic DAILY@2100 TOPIC 11/14/18 21:00 12/14/18 20:59 11/30/18 21:29 Dextrose (Dextrose 50%) 25 ml Q30M PRN IV Hypoglycemia 12/01/18 19:30 12/31/18 19:29 Dextrose (Dextrose 50%) 50 ml Q30M PRN IV Hypoglycemia 12/01/18 19:30 12/31/18 19:29 Docusate Sodium (Colace) 100 mg EVERY 8 HOURS PRN GT constipation 11/24/18 18:51 12/20/18 18:50 Hydralazine HCl (Apresoline) 10 mg Q6H PRN IV For High Blood Pressure 11/11/18 14:39 12/11/18 14:38 Insulin Aspart (NovoLOG) EVERY 6 HOURS SUBQ 12/02/18 00:00 12/31/18 20:59 12/02/18 17:19 Lactulose (Cephulac) 20 gm THREE TIMES A DAY PRN GT Constipation 11/24/18 18:51 12/23/18 18:50 Lansoprazole (Prevacid) 30 mg BID GT 11/20/18 09:00 12/20/18 08:59 12/02/18 17:17 Nicotine (Nicoderm) 1 patch Q24H TDERMAL 12/01/18 22:15 12/21/18 22:14 12/01/18 22:13 Nystatin (Nystatin) 5 ml TID ORAL 11/29/18 18:00 12/06/18 17:59 12/02/18 17:17 Olanzapine (ZyPREXA) 2.5 mg BEDTIME NG 11/13/18 21:00 12/13/18 20:59 12/01/18 20:34 Olanzapine (ZyPREXA) 2.5 mg Q6H PRN ORAL agitation 11/15/18 23:00 12/15/18 22:59 Polyethylene Glycol (Miralax) 17 gm BEDTIME ORAL 11/23/18 21:00 12/23/18 20:59 11/30/18 21:10 Polyethylene Glycol (Miralax) 17 gm DAILYPRN PRN NG Constipation 11/12/18 19:00 12/11/18 15:29 11/13/18 05:30 Sevelamer Carbonate (Renvela) 800 mg Q8HR GT 11/20/18 14:00 12/20/18 13:59 12/02/18 13:39 Tacrolimus (Prograf) 2 mg MoWeFr@0000,1200 ORAL 12/02/18 00:00 12/21/18 00:00 12/02/18 12:27 Tacrolimus (Prograf) 2 mg SuTuThSa@0900,2100 ORAL 11/17/18 21:00 12/17/18 20:59 12/01/18 20:34 Tramadol HCl (Ultram) 50 mg Q4H PRN GT For Moderate pain 11/27/18 15:45 12/04/18 15:31 12/02/18 12:28 Francois Landis M.D. Dec 02, 2018 17:28
--- NOTE | 2018-12-02 17:40 | General Progress Note ---
Assessment/Plan Assessment: Assessment and Recs: # Coaaulopathy likely secondary to decreased Vitk dependent cofactors (high INR , PT) --> monitor closely for any evidence of bleeding --> hold off on mixing study at this time unless severe changes noted --> VIT K on prn basis sq can be administered # Anemia of chronic disease due to underlying chronic medical issues, multifactorial as well as kidney disease --> Anemia workup has been ordered, rule out gi bleed, seen by gi, also reviewed w/u --> No evidence of hemolysis is noted, peripheral smear has been reviewed. --> Hgb goal >7. Transfuse prn. --> Epogen can be consider if hgb downtrends --> Medications have been reviewed --> evaluate with Gi team prn --> transfuse if hgb is < 7 (will trend CBC daily) # Failure to thrive is likely related to poor overall status --> with multiple decub ulceerations that are noted, seen by id/surgery --> s/p trach as well --> cea is wnl # Acute respiratory failure is now s/p trach --> as per surgery recs # Ground glass opacity present on imaging of lung --> with pleural effusions, s/p drainage at this time --> no evidence for malignancy is noted # Pleural effusion --> s/p thoracentesis # Hyperkalemia --> kayzelate has been given # Renal failure --> per renal recs, appreciated --> getting hd as per schedule # Altered level of consciousness ==> currently as per baseline The timing of this note does not necessarily reflect the time of the patient was seen. Greatly appreciate consultation! Subjective Constitutional: Denies: no symptoms, chills, diaphoresis, fever, malaise, weakness, other HEENT: Denies: no symptoms, eye pain, blurred vision, tearing, double vision, ear pain, ear discharge, nose pain, nose congestion, throat pain, throat swelling, mouth pain, mouth swelling, other Cardiovascular: Denies: no symptoms, chest pain, edema, irregular heart rate, lightheadedness, palpitations, syncope, other Respiratory: Denies: no symptoms, cough, orthopnea, shortness of breath, SOB with excertion, SOB at rest, sputum, stridor, wheezing, other Gastrointestinal/Abdominal: Denies: no symptoms, abdomen distended, abdominal pain, black stools, tarry stools, blood in stool, constipated, diarrhea, difficulty swallowing, nausea, poor appetite, poor fluid intake, rectal bleeding , vomiting, other Genitourinary: Denies: no symptoms, burning, discharge, frequency, flank pain, hematuria, incontinence, pain, urgency, other 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: Denies: no symptoms, anxiety, depressed, emotional problems, headache, numbness, paresthesia, pre-existing deficit, seizure, tingling, tremors, weakness, other Endocrine: Denies: no symptoms, excessive sweating, flushing, intolerance to cold, intolerance to heat, increased hunger, increased thirst, increased urine, unexplained weight gain, unexplained weight loss, other Allergies: Coded Allergies: CEPHALEXIN (Unverified Allergy, Unknown, 02/24/14) SULFAMETHOXAZOLE (Unverified Allergy, Unknown, 02/24/14) TRIMETHOPRIM (Unverified Allergy, Unknown, 02/24/14) Subjective 11/30: comfortable, on abx, no complaints, on t-piece 12/01: to have hd done potentially tomorrow, is more alert/awake 12/02: no major bleeding, hgb remains approx 11, no changes Objective Last 24 Hour Vital Signs Date Time Temp Pulse Resp B/P (MAP) Pulse Ox O2 Delivery O2 Flow Rate FiO2 12/02/18 17:23 79 20 40 12/02/18 16:00 98.0 78 24 133/77 (95) 100 12/02/18 16:00 Mechanical Ventilator 12/02/18 16:00 40 12/02/18 15:51 80 12/02/18 15:29 87 24 40 12/02/18 12:43 84 23 40 12/02/18 12:00 98.2 78 24 123/104 (110) 99 12/02/18 12:00 Mechanical Ventilator 12/02/18 12:00 40 12/02/18 12:00 78 12/02/18 11:01 87 24 40 12/02/18 09:02 84 26 40 12/02/18 08:23 96 142/73 12/02/18 08:00 94 12/02/18 08:00 40 12/02/18 08:00 Mechanical Ventilator 12/02/18 08:00 98.4 96 26 142/73 (96) 100 12/02/18 06:50 100 Mechanical Ventilator 40 12/02/18 06:50 Mechanical Ventilator 40 12/02/18 06:50 87 23 40 12/02/18 05:03 84 22 40 12/02/18 04:00 93 12/02/18 04:00 98.1 94 20 126/94 (105) 100 12/02/18 04:00 40 12/02/18 04:00 Mechanical Ventilator 12/02/18 03:11 79 22 40 12/02/18 01:15 72 21 40 12/02/18 00:00 97.7 87 20 142/82 (102) 100 12/02/18 00:00 Mechanical Ventilator 12/02/18 00:00 74 12/01/18 23:57 97.7 12/01/18 23:01 77 22 40 12/01/18 21:15 79 22 40 12/01/18 20:00 40 12/01/18 20:00 97.7 82 24 157/92 (113) 99 12/01/18 20:00 Mechanical Ventilator 12/01/18 19:15 78 12/01/18 19:12 Mechanical Ventilator 40 12/01/18 19:12 99 Mechanical Ventilator 40 12/01/18 19:08 78 21 40 Intake and Output 12/01/18 12/02/18 19:00 07:00 Intake Total 600 ml 690 ml Balance 600 ml 690 ml Free Water 30 ml 150 ml Tube Feeding 540 ml 540 ml Blood Product 30 ml # Bowel Movements 2 Laboratory Tests 12/02/18 04:00: White Blood Count 8.4, Red Blood Count 4.47L, Hemoglobin 11.2L, Hematocrit 36.2L , Mean Corpuscular Volume 81, Mean Corpuscular Hemoglobin 25.1L, Mean Corpuscular Hemoglobin Concent 31.0L, Red Cell Distribution Width 17.1H, Platelet Count 195, Mean Platelet Volume 7.4, Neutrophils (%) (Auto) 79.8H, Lymphocytes (%) (Auto) 12.6L, Monocytes (%) (Auto) 6.7, Eosinophils (%) (Auto) 0.0, Basophils (%) (Auto) 0.9, Sodium Level 132L, Potassium Level 4.9, Chloride Level 94L, Carbon Dioxide Level 29, Anion Gap 9, Blood Urea Nitrogen 72H, Creatinine 7.1H, Estimat Glomerular Filtration Rate 7.8, Glucose Level 131H, Calcium Level 9.3 Height (Feet): 5 Height (Inches): 5.00 Weight (Pounds): 210 Objective PE General Appearance: mild distress, moderate distress Lines, tubes and drains: peripheral HEENT: EOMI, thrush, tonsils swollen ++trach Neck: normal inspection Respiratory/Chest: decreased breath sounds, accessory muscle use Cardiovascular/Chest: tachycardia Abdomen: soft, no organomegaly, no mass, ++ peg Extremities: other Skin Exam: warm/dry, rash Neurologic: alert, responsive Zacarias Khoury MD Dec 02, 2018 17:40
[2018-12-02 20:00] VITALS: BP 130/74
[2018-12-02] MEDS: Miralax 17gm pkt ORAL SCH (21:00)
[2018-12-02] MEDS: OLANZapine 2.5mg tab NG SCH (21:07)
--- NOTE | 2018-12-02 21:45 | Cardiology Progress Note ---
Assessment/Plan Status: stable Assessment/Plan Assessment/Plan Assessment/Plan 1. Troponin leak with no chest pain. Hx of CABG. Due to renal failure. On Coreg 6.25 mg bid, aspirin and Lipitor 2. S/P CABG - outpatient stress test 3. Nonsustained ventricular tachycardia. Hx of old IN and CABG. EF 55%. No Syncope, monitor electrolytes 4. Congestive heart failure. On hemodialysis 5. End-stage renal disease, on hemodialysis per Dr. Stevens 6. Status post right sided Medtronic dual chamber pacemaker with Nl Fx. 7. Right foot ulcer. Antibiotic per Dr. Landis. FU by Dr. Huizar 8. History of liver transplant on Prograf 9. Respiratory failure, ? etiology anaphylaxis. S/P Emergency tracheostomy. Weaned off the vent on T Piece 10. Pleural effusion. FU Dr. Mendoza 11. Dysphagia, S/P PEG Dispo planning Jacqueline when approved Subjective Cardiovascular: Reports: no symptoms Respiratory: Reports: no symptoms Gastrointestinal/Abdominal: Reports: no symptoms Genitourinary: Reports: no symptoms Subjective COVERAGE FOR [facility] Awaiting placement, referral faxed No acute events, vitals stable, CV stable, v paced, trach stable - plan to down size Objective Last 24 Hour Vital Signs Date Time Temp Pulse Resp B/P (MAP) Pulse Ox O2 Delivery O2 Flow Rate FiO2 12/02/18 21:00 75 24 40 12/02/18 20:00 40 12/02/18 20:00 Mechanical Ventilator 12/02/18 19:24 79 12/02/18 19:01 79 23 40 12/02/18 19:01 Mechanical Ventilator 40 12/02/18 19:01 100 Mechanical Ventilator 40 12/02/18 17:23 79 20 40 12/02/18 16:00 98.0 78 24 133/77 (95) 100 12/02/18 16:00 Mechanical Ventilator 12/02/18 16:00 40 12/02/18 15:51 80 12/02/18 15:29 87 24 40 12/02/18 12:43 84 23 40 12/02/18 12:00 98.2 78 24 123/104 (110) 99 12/02/18 12:00 Mechanical Ventilator 12/02/18 12:00 40 12/02/18 12:00 78 12/02/18 11:01 87 24 40 12/02/18 09:02 84 26 40 12/02/18 08:23 96 142/73 12/02/18 08:00 94 12/02/18 08:00 40 12/02/18 08:00 Mechanical Ventilator 12/02/18 08:00 98.4 96 26 142/73 (96) 100 12/02/18 06:50 100 Mechanical Ventilator 40 12/02/18 06:50 Mechanical Ventilator 40 12/02/18 06:50 87 23 40 12/02/18 05:03 84 22 40 12/02/18 04:00 93 12/02/18 04:00 98.1 94 20 126/94 (105) 100 12/02/18 04:00 40 12/02/18 04:00 Mechanical Ventilator 12/02/18 03:11 79 22 40 12/02/18 01:15 72 21 40 12/02/18 00:00 97.7 87 20 142/82 (102) 100 12/02/18 00:00 Mechanical Ventilator 12/02/18 00:00 74 12/01/18 23:57 97.7 12/01/18 23:01 77 22 40 General Appearance: no apparent distress, on vent EENT: PERRL/EOMI, normal ENT inspection, TMs normal, pharynx normal Neck: non-tender, normal alignment, supple, normal inspection, no JVD Rhythm: NSR Cardiovascular: normal peripheral pulses, normal rate, regular rhythm Respiratory/Chest: chest wall non-tender, normal breath sounds Abdomen: normal bowel sounds, non tender, soft, no organomegaly Extremities: normal range of motion, non-tender 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, motor weakness Intake and Output 12/01/18 12/02/18 18:59 06:59 Intake Total 600 ml 690 ml Balance 600 ml 690 ml Free Water 30 ml 150 ml Tube Feeding 540 ml 540 ml Blood Product 30 ml # Bowel Movements 2 Laboratory Tests Test 12/02/18 04:00 White Blood Count 8.4 K/UL (4.8-10.8) Red Blood Count 4.47 M/UL (4.70-6.10) L Hemoglobin 11.2 G/DL (14.2-18.0) L Hematocrit 36.2 % (42.0-52.0) L Mean Corpuscular Volume 81 FL (80-99) Mean Corpuscular Hemoglobin 25.1 PG (27.0-31.0) L Mean Corpuscular Hemoglobin Concent 31.0 G/DL (32.0-36.0) L Red Cell Distribution Width 17.1 % (11.6-14.8) H Platelet Count 195 K/UL (150-450) Mean Platelet Volume 7.4 FL (6.5-10.1) Neutrophils (%) (Auto) 79.8 % (45.0-75.0) H Lymphocytes (%) (Auto) 12.6 % (20.0-45.0) L Monocytes (%) (Auto) 6.7 % (1.0-10.0) Eosinophils (%) (Auto) 0.0 % (0.0-3.0) Basophils (%) (Auto) 0.9 % (0.0-2.0) Sodium Level 132 MMOL/L (136-145) L Potassium Level 4.9 MMOL/L (3.5-5.1) Chloride Level 94 MMOL/L (98-107) L Carbon Dioxide Level 29 MMOL/L (21-32) Anion Gap 9 mmol/L (5-15) Blood Urea Nitrogen 72 mg/dL (7-18) H Creatinine 7.1 MG/DL (0.55-1.30) H Estimat Glomerular Filtration Rate 7.8 mL/min (>60) Glucose Level 131 MG/DL (74-106) H Calcium Level 9.3 MG/DL (8.5-10.1) Microbiology Date/Time Source Procedure Growth Status 11/30/18 17:33 Stool Clostridium difficile Toxin Assay - Final Complete Filsoof,Dhruv Osei MD Dec 02, 2018 21:45
[2018-12-03] VITALS: BP 134/84
[2018-12-03] MEDS: traMADol 50mg tab GT PRN ×4 (02:33→23:18)
[2018-12-03 04:00] VITALS: BP 126/88
[2018-12-03] MEDS: NovoLOG Insulin Flexpen SUBQ SCH ×4 (05:36→23:19)
[2018-12-03] MEDS: Acetaminophen 650mg/20.3ml GT SCH ×3 (05:41→20:28)
[2018-12-03] MEDS: Renvela 800mg Pkt GT SCH ×3 (05:41→21:21)
[2018-12-03 08:00] VITALS: BP 152/72
[2018-12-03] MEDS: Nystatin Susp 500,000 units/5ml ORAL SCH ×3 (08:37→17:33)
[2018-12-03] MEDS: Aspirin Baby 81mg GT SCH (08:37)
--- NOTE | 2018-12-03 12:09 | General Progress Note ---
Assessment/Plan Problem List: (1) Transplant ICD Codes: Z94.9 - Transplanted organ and tissue status, unspecified SNOMED: 437644687 (2) HTN (hypertension) ICD Codes: I10 - Essential (primary) hypertension SNOMED: 10918584 (3) Pacemaker ICD Codes: Z95.0 - Presence of cardiac pacemaker SNOMED: 365507023 (4) CHF (congestive heart failure) ICD Codes: I50.9 - Heart failure, unspecified SNOMED: 20707585 (5) DM (diabetes mellitus) ICD Codes: E11.9 - Type 2 diabetes mellitus without complications SNOMED: 82636473 (6) Foot ulcer ICD Codes: L97.509 - Non-pressure chronic ulcer of other part of unspecified foot with unspecified severity SNOMED: 26032975 Qualifiers: Qualified Codes: L97.511 - Non-pressure chronic ulcer of other part of right foot limited to breakdown of skin (7) ESRD (end stage renal disease) on dialysis ICD Codes: N18.6 - End stage renal disease; Z99.2 - Dependence on renal dialysis SNOMED: 856074092 Assessment: GTF HD per nephro fu labs supportive care Diagnoses Results of Pharmacotherapy: GTF fu H&H fu labs supportive care cont tacrolimus Subjective ROS Limited/Unobtainable: No Allergies: Coded Allergies: CEPHALEXIN (Unverified Allergy, Unknown, 02/24/14) SULFAMETHOXAZOLE (Unverified Allergy, Unknown, 02/24/14) TRIMETHOPRIM (Unverified Allergy, Unknown, 02/24/14) Subjective he pulled his NGT again Objective Last 24 Hour Vital Signs Date Time Temp Pulse Resp B/P (MAP) Pulse Ox O2 Delivery O2 Flow Rate FiO2 12/03/18 11:58 40 12/03/18 11:56 Mechanical Ventilator 12/03/18 11:10 94 23 40 12/03/18 10:09 96 40 40 12/03/18 09:45 95 30 40 12/03/18 09:08 93 29 40 12/03/18 08:37 80 152/72 12/03/18 08:00 Mechanical Ventilator 12/03/18 08:00 97.8 80 21 152/72 (98) 100 12/03/18 08:00 40 12/03/18 08:00 78 12/03/18 07:26 Mechanical Ventilator 40 12/03/18 07:26 100 Mechanical Ventilator 40 12/03/18 07:25 87 26 40 12/03/18 05:00 83 23 40 12/03/18 04:00 98.4 87 19 126/88 (101) 100 12/03/18 04:00 40 12/03/18 04:00 77 12/03/18 04:00 Mechanical Ventilator 12/03/18 03:02 75 21 40 12/03/18 01:10 79 21 40 12/03/18 00:00 73 12/03/18 00:00 98.1 75 20 134/84 (101) 100 12/03/18 00:00 Mechanical Ventilator 12/02/18 22:58 82 22 40 12/02/18 22:41 Mechanical Ventilator 12/02/18 21:39 98.4 12/02/18 21:00 75 24 40 12/02/18 20:00 40 12/02/18 20:00 Mechanical Ventilator 12/02/18 20:00 98.2 78 23 130/74 (92) 100 12/02/18 19:24 79 12/02/18 19:01 79 23 40 12/02/18 19:01 Mechanical Ventilator 40 12/02/18 19:01 100 Mechanical Ventilator 40 12/02/18 17:23 79 20 40 12/02/18 16:00 98.0 78 24 133/77 (95) 100 12/02/18 16:00 Mechanical Ventilator 12/02/18 16:00 40 12/02/18 15:51 80 12/02/18 15:29 87 24 40 12/02/18 12:43 84 23 40 Intake and Output 12/02/18 12/03/18 19:00 07:00 Intake Total 720 ml 735 ml Output Total 2000 ml Balance -1280 ml 735 ml Free Water 180 ml 150 ml Tube Feeding 540 ml 585 ml Hemodialysis UF 2000 ml # Bowel Movements 4 1 Height (Feet): 5 Height (Inches): 5.00 Weight (Pounds): 211 General Appearance: no apparent distress EENT: normal ENT inspection Neck: supple Cardiovascular: normal rate Respiratory/Chest: decreased breath sounds Abdomen: normal bowel sounds, non tender, soft Extremities: non-tender Jorge Escalera MD Dec 03, 2018 12:09
[2018-12-03 16:00] VITALS: BP 179/86
--- NOTE | 2018-12-03 16:52 | Nephrology Progress Note ---
Assessment/Plan Problem List: (1) ESRD (end stage renal disease) on dialysis (2) Foot ulcer (3) CHF (congestive heart failure) (4) Pacemaker (5) Acute respiratory failure Assessment: with Co2 retention Assessment ESRD with high K and SOB on admit Foot ulcer, likely infected High Troponin likely NSTMI Pacer , Pleural effusion s/p CABGS s/p Liver transplant Plan Tylenol RTC pain, and tramadol as needed Now has tracheostomy and PEG Adjust BP meds HD next Antibiotics by ID start tube feeding / hasPEG per cardio and ID Podiatry and Vascular surgical fu PRN tramadol for pain ? DC planning? ALSO COVERING MEDCINE FOR DR BERG Subjective ROS Limited/Unobtainable: No Objective Objective Last 24 Hour Vital Signs Date Time Temp Pulse Resp B/P (MAP) Pulse Ox O2 Delivery O2 Flow Rate FiO2 12/03/18 16:00 40 12/03/18 16:00 Mechanical Ventilator 12/03/18 16:00 75 12/03/18 16:00 98.3 76 23 179/86 (117) 99 12/03/18 15:23 87 25 40 12/03/18 13:09 91 28 40 12/03/18 12:00 76 12/03/18 11:58 40 12/03/18 11:56 Mechanical Ventilator 12/03/18 11:10 94 23 40 12/03/18 10:09 96 40 40 12/03/18 09:45 95 30 40 12/03/18 09:08 93 29 40 12/03/18 08:37 80 152/72 12/03/18 08:00 Mechanical Ventilator 12/03/18 08:00 97.8 80 21 152/72 (98) 100 12/03/18 08:00 40 12/03/18 08:00 78 12/03/18 07:26 Mechanical Ventilator 40 12/03/18 07:26 100 Mechanical Ventilator 40 12/03/18 07:25 87 26 40 12/03/18 05:00 83 23 40 12/03/18 04:00 98.4 87 19 126/88 (101) 100 12/03/18 04:00 40 12/03/18 04:00 77 12/03/18 04:00 Mechanical Ventilator 12/03/18 03:02 75 21 40 12/03/18 01:10 79 21 40 12/03/18 00:00 73 12/03/18 00:00 98.1 75 20 134/84 (101) 100 12/03/18 00:00 Mechanical Ventilator 12/02/18 22:58 82 22 40 12/02/18 22:41 Mechanical Ventilator 12/02/18 21:39 98.4 12/02/18 21:00 75 24 40 12/02/18 20:00 40 12/02/18 20:00 Mechanical Ventilator 12/02/18 20:00 98.2 78 23 130/74 (92) 100 12/02/18 19:24 79 12/02/18 19:01 79 23 40 12/02/18 19:01 Mechanical Ventilator 40 12/02/18 19:01 100 Mechanical Ventilator 40 12/02/18 17:23 79 20 40 Intake and Output 12/02/18 12/03/18 19:00 07:00 Intake Total 720 ml 735 ml Output Total 2000 ml Balance -1280 ml 735 ml Free Water 180 ml 150 ml Tube Feeding 540 ml 585 ml Hemodialysis UF 2000 ml # Bowel Movements 4 1 Height (Feet): 5 Height (Inches): 5.00 Weight (Pounds): 211 General Appearance: no apparent distress EENT: other - trach Cardiovascular: normal rate Respiratory/Chest: decreased breath sounds Abdomen: distended Objective no other change Nakul Stevens MD Dec 03, 2018 16:52
--- NOTE | 2018-12-03 16:53 | Pulmonology Progress Note ---
Assessment/Plan Assessment/Plan 1. Resp failure, hypercapneic 2. End-stage renal disease, on dialysis, status post multiple upper extremity vascular procedures. 3. Coronary artery bypass surgery. 4. Diabetes. 5. Dysphonia, tongue swelling, resolved; s/p trach PLAN: not tolerating weaning with IMV/PSV not tolerating speaking valve tolerates feeds disc w RN called cardiology re HTN working on placement, difficult due to insurance Subjective Constitutional: Reports: no symptoms Allergies: Coded Allergies: CEPHALEXIN (Unverified Allergy, Unknown, 02/24/14) SULFAMETHOXAZOLE (Unverified Allergy, Unknown, 02/24/14) TRIMETHOPRIM (Unverified Allergy, Unknown, 02/24/14) Objective Last 24 Hour Vital Signs Date Time Temp Pulse Resp B/P (MAP) Pulse Ox O2 Delivery O2 Flow Rate FiO2 12/03/18 16:00 40 12/03/18 16:00 Mechanical Ventilator 12/03/18 16:00 75 12/03/18 16:00 98.3 76 23 179/86 (117) 99 12/03/18 15:23 87 25 40 12/03/18 13:09 91 28 40 12/03/18 12:00 76 12/03/18 11:58 40 12/03/18 11:56 Mechanical Ventilator 12/03/18 11:10 94 23 40 12/03/18 10:09 96 40 40 12/03/18 09:45 95 30 40 12/03/18 09:08 93 29 40 12/03/18 08:37 80 152/72 12/03/18 08:00 Mechanical Ventilator 12/03/18 08:00 97.8 80 21 152/72 (98) 100 12/03/18 08:00 40 12/03/18 08:00 78 12/03/18 07:26 Mechanical Ventilator 40 12/03/18 07:26 100 Mechanical Ventilator 40 12/03/18 07:25 87 26 40 12/03/18 05:00 83 23 40 12/03/18 04:00 98.4 87 19 126/88 (101) 100 12/03/18 04:00 40 12/03/18 04:00 77 12/03/18 04:00 Mechanical Ventilator 12/03/18 03:02 75 21 40 12/03/18 01:10 79 21 40 12/03/18 00:00 73 12/03/18 00:00 98.1 75 20 134/84 (101) 100 12/03/18 00:00 Mechanical Ventilator 12/02/18 22:58 82 22 40 12/02/18 22:41 Mechanical Ventilator 12/02/18 21:39 98.4 12/02/18 21:00 75 24 40 12/02/18 20:00 40 12/02/18 20:00 Mechanical Ventilator 12/02/18 20:00 98.2 78 23 130/74 (92) 100 12/02/18 19:24 79 12/02/18 19:01 79 23 40 12/02/18 19:01 Mechanical Ventilator 40 12/02/18 19:01 100 Mechanical Ventilator 40 12/02/18 17:23 79 20 40 Intake and Output 12/02/18 12/03/18 19:00 07:00 Intake Total 720 ml 735 ml Output Total 2000 ml Balance -1280 ml 735 ml Free Water 180 ml 150 ml Tube Feeding 540 ml 585 ml Hemodialysis UF 2000 ml # Bowel Movements 4 1 Objective trach on vent General Appearance: no acute distress Respiratory/Chest: lungs clear Cardiovascular: normal rate Microbiology Date/Time Source Procedure Growth Status 11/30/18 17:33 Stool Clostridium difficile Toxin Assay - Final Complete Current Medications Medications (Trade) Dose Ordered Sig/Aleks Route PRN Reason Start Time Stop Time Status Last Admin Dose Admin Acetaminophen (Tylenol) 650 mg Q4H PRN NG Mild Pain/Temp > 100.5 11/12/18 19:00 12/12/18 18:47 11/28/18 05:31 Acetaminophen (Tylenol) 650 mg Q8H GT 11/28/18 13:15 12/28/18 13:14 12/03/18 05:41 Amlodipine Besylate (Norvasc) 2.5 mg DAILY GT 11/22/18 09:00 12/22/18 08:59 12/03/18 08:37 Aspirin (ASA) 81 mg DAILY GT 11/20/18 09:00 12/20/18 08:59 12/03/18 08:37 Atorvastatin Calcium (Lipitor) 10 mg BEDTIME NG 12/01/18 21:00 12/21/18 20:59 12/02/18 21:07 Dextrose (Dextrose 50%) 25 ml Q30M PRN IV Hypoglycemia 12/01/18 19:30 12/31/18 19:29 Dextrose (Dextrose 50%) 50 ml Q30M PRN IV Hypoglycemia 12/01/18 19:30 12/31/18 19:29 Docusate Sodium (Colace) 100 mg EVERY 8 HOURS PRN GT constipation 11/24/18 18:51 12/20/18 18:50 Hydralazine HCl (Apresoline) 10 mg Q6H PRN GT For High Blood Pressure 12/03/18 16:45 01/02/19 16:44 Insulin Aspart (NovoLOG) EVERY 6 HOURS SUBQ 12/02/18 00:00 12/31/18 20:59 12/03/18 11:46 Lactulose (Cephulac) 20 gm THREE TIMES A DAY PRN GT Constipation 11/24/18 18:51 12/23/18 18:50 Lansoprazole (Prevacid) 30 mg BID GT 11/20/18 09:00 12/20/18 08:59 12/03/18 08:37 Nicotine (Nicoderm) 1 patch Q24H TDERMAL 12/01/18 22:15 12/21/18 22:14 12/02/18 21:16 Nystatin (Nystatin) 5 ml TID ORAL 11/29/18 18:00 12/06/18 17:59 12/03/18 13:13 Olanzapine (ZyPREXA) 2.5 mg BEDTIME NG 11/13/18 21:00 12/13/18 20:59 12/02/18 21:07 Olanzapine (ZyPREXA) 2.5 mg Q6H PRN ORAL agitation 11/15/18 23:00 12/15/18 22:59 Polyethylene Glycol (Miralax) 17 gm BEDTIME ORAL 11/23/18 21:00 12/23/18 20:59 11/30/18 21:10 Polyethylene Glycol (Miralax) 17 gm DAILYPRN PRN NG Constipation 11/12/18 19:00 12/11/18 15:29 11/13/18 05:30 Sevelamer Carbonate (Renvela) 800 mg Q8HR GT 11/20/18 14:00 12/20/18 13:59 12/03/18 13:13 Tacrolimus (Prograf) 2 mg MoWeFr@0000,1200 ORAL 12/02/18 00:00 12/21/18 00:00 12/02/18 12:27 Tacrolimus (Prograf) 2 mg SuTuThSa@0900,2100 ORAL 11/17/18 21:00 12/17/18 20:59 12/03/18 08:37 Tramadol HCl (Ultram) 50 mg Q4H PRN GT For Moderate pain 11/27/18 15:45 12/04/18 15:31 12/03/18 13:14 Saroj Mendoza MD Dec 03, 2018 16:53
--- NOTE | 2018-12-03 17:15 | Infectious Diseases Prog Note ---
Assessment/Plan Problems: (1) Thrush, oral Assessment & Plan: continue local nystatin , stop micafungin, S/P almost three weeks empirically (2) HCV antibody positive Assessment & Plan: no evidence of active infection, with undetectable viral load , suspect due to previous infection , cleared, S/P liver transplant . (3) Foot ulcer Assessment & Plan: in diabetic patient , with MRSA , S/P vancomycin treatment with HD for two weeks , pending vascular eval and possible surgical debridement. bone scan ruled out osteomyelitis of the heel . follow up with manager field services (4) DM (diabetes mellitus) Assessment & Plan: recommend tight glycemic control to keep blood glucose between 100-140 (5) CHF (congestive heart failure) Assessment & Plan: on HD , renal is following, monitor daily weight (6) Encephalopathy acute Assessment & Plan: suspect metabolic, with high urea level, waxing and waning , now improved (7) Severe tongue swelling Assessment & Plan: improving , s/p tracheostomy to protect his airway since respiratory status worsened . now improving, pulmonary is following (8) Pleural effusion Assessment & Plan: recurrent on the right, with lung collapse , S/P thoracentesis X2 with removal of 1.5 cc of clear fluids. PREVIOUS culture were negative with negative cytology Subjective Constitutional: Reports: no symptoms HEENT: Reports: no symptoms Respiratory: Reports: no symptoms Breasts: Reports: no symptoms Cardiovascular: Reports: no symptoms Gastrointestinal/Abdominal: Reports: no symptoms Genitourinary: Reports: no symptoms Neurologic: Reports: no symptoms Psychiatric: Reports: no symptoms Skin: Reports: no symptoms Endocrine: Reports: no symptoms Hematologic: Reports: no symptoms Musculoskeletal: Reports: no symptoms Allergies: Coded Allergies: CEPHALEXIN (Unverified Allergy, Unknown, 02/24/14) SULFAMETHOXAZOLE (Unverified Allergy, Unknown, 02/24/14) TRIMETHOPRIM (Unverified Allergy, Unknown, 02/24/14) Subjective he was comfortable, has no facial swelling and mild tongue swelling , awake and responsive, no fever or chills, no significant secretions , no SOB . has less thrush on his tongue Objective Vital Signs Last 24 Hour Vital Signs Date Time Temp Pulse Resp B/P (MAP) Pulse Ox O2 Delivery O2 Flow Rate FiO2 12/03/18 16:00 40 12/03/18 16:00 Mechanical Ventilator 12/03/18 16:00 75 12/03/18 16:00 98.3 76 23 179/86 (117) 99 12/03/18 15:23 87 25 40 12/03/18 13:09 91 28 40 12/03/18 12:00 76 12/03/18 11:58 40 12/03/18 11:56 Mechanical Ventilator 12/03/18 11:10 94 23 40 12/03/18 10:09 96 40 40 12/03/18 09:45 95 30 40 12/03/18 09:08 93 29 40 12/03/18 08:37 80 152/72 12/03/18 08:00 Mechanical Ventilator 12/03/18 08:00 97.8 80 21 152/72 (98) 100 12/03/18 08:00 40 12/03/18 08:00 78 12/03/18 07:26 Mechanical Ventilator 40 12/03/18 07:26 100 Mechanical Ventilator 40 12/03/18 07:25 87 26 40 12/03/18 05:00 83 23 40 12/03/18 04:00 98.4 87 19 126/88 (101) 100 12/03/18 04:00 40 12/03/18 04:00 77 12/03/18 04:00 Mechanical Ventilator 12/03/18 03:02 75 21 40 12/03/18 01:10 79 21 40 12/03/18 00:00 73 12/03/18 00:00 98.1 75 20 134/84 (101) 100 12/03/18 00:00 Mechanical Ventilator 12/02/18 22:58 82 22 40 12/02/18 22:41 Mechanical Ventilator 12/02/18 21:39 98.4 12/02/18 21:00 75 24 40 12/02/18 20:00 40 12/02/18 20:00 Mechanical Ventilator 12/02/18 20:00 98.2 78 23 130/74 (92) 100 12/02/18 19:24 79 12/02/18 19:01 79 23 40 12/02/18 19:01 Mechanical Ventilator 40 12/02/18 19:01 100 Mechanical Ventilator 40 12/02/18 17:23 79 20 40 Height (Feet): 5 Height (Inches): 5.00 Weight (Pounds): 211 General Appearance: WD/WN, no acute distress HEENT: normocephalic, atraumatic, anicteric, mucous membranes moist, PERRL, EOMI, pharynx normal, supple, no JVD, status post trach, thrush Respiratory/Chest: chest wall non-tender, lungs clear, normal breath sounds, no respiratory distress, no accessory muscle use, decreased breath sounds Cardiovascular: normal peripheral pulses, normal rate, regular rhythm, no gallop/murmur, no JVD Abdomen: normal bowel sounds, soft, non tender, no organomegaly, non distended , no mass, no scars Genitourinary: normal external genitalia Extremities: no cyanosis, no clubbing Skin: no rash, no lesions 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: [employer] 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 normal, alert, responsive Lymphatic: no neck adenopathy, no groin adenopathy Musculoskeletal: normal muscle bulk, no effusion Microbiology Date/Time Source Procedure Growth Status 11/30/18 17:33 Stool Clostridium difficile Toxin Assay - Final Complete Current Medications Medications (Trade) Dose Ordered Sig/Aleks Route PRN Reason Start Time Stop Time Status Last Admin Dose Admin Acetaminophen (Tylenol) 650 mg Q4H PRN NG Mild Pain/Temp > 100.5 11/12/18 19:00 12/12/18 18:47 11/28/18 05:31 Acetaminophen (Tylenol) 650 mg Q8H GT 11/28/18 13:15 12/28/18 13:14 12/03/18 05:41 Amlodipine Besylate (Norvasc) 2.5 mg BID GT 12/03/18 18:00 12/22/18 08:59 Aspirin (ASA) 81 mg DAILY GT 11/20/18 09:00 12/20/18 08:59 12/03/18 08:37 Atorvastatin Calcium (Lipitor) 10 mg BEDTIME NG 12/01/18 21:00 12/21/18 20:59 12/02/18 21:07 Dextrose (Dextrose 50%) 25 ml Q30M PRN IV Hypoglycemia 12/01/18 19:30 12/31/18 19:29 Dextrose (Dextrose 50%) 50 ml Q30M PRN IV Hypoglycemia 12/01/18 19:30 12/31/18 19:29 Docusate Sodium (Colace) 100 mg EVERY 8 HOURS PRN GT constipation 11/24/18 18:51 12/20/18 18:50 Hydralazine HCl (Apresoline) 10 mg Q6H PRN GT For High Blood Pressure 12/03/18 16:45 01/02/19 16:44 Insulin Aspart (NovoLOG) EVERY 6 HOURS SUBQ 12/02/18 00:00 12/31/18 20:59 12/03/18 11:46 Lactulose (Cephulac) 20 gm THREE TIMES A DAY PRN GT Constipation 11/24/18 18:51 12/23/18 18:50 Lansoprazole (Prevacid) 30 mg BID GT 11/20/18 09:00 12/20/18 08:59 12/03/18 08:37 Nicotine (Nicoderm) 1 patch Q24H TDERMAL 12/01/18 22:15 12/21/18 22:14 12/02/18 21:16 Nystatin (Nystatin) 5 ml TID ORAL 11/29/18 18:00 12/06/18 17:59 12/03/18 13:13 Olanzapine (ZyPREXA) 2.5 mg BEDTIME NG 11/13/18 21:00 12/13/18 20:59 12/02/18 21:07 Olanzapine (ZyPREXA) 2.5 mg Q6H PRN ORAL agitation 11/15/18 23:00 12/15/18 22:59 Polyethylene Glycol (Miralax) 17 gm BEDTIME ORAL 11/23/18 21:00 12/23/18 20:59 11/30/18 21:10 Polyethylene Glycol (Miralax) 17 gm DAILYPRN PRN NG Constipation 11/12/18 19:00 12/11/18 15:29 11/13/18 05:30 Sevelamer Carbonate (Renvela) 800 mg Q8HR GT 11/20/18 14:00 12/20/18 13:59 12/03/18 13:13 Tacrolimus (Prograf) 2 mg MoWeFr@0000,1200 ORAL 12/02/18 00:00 12/21/18 00:00 12/02/18 12:27 Tacrolimus (Prograf) 2 mg SuTuThSa@0900,2100 ORAL 11/17/18 21:00 12/17/18 20:59 12/03/18 08:37 Tramadol HCl (Ultram) 50 mg Q4H PRN GT For Moderate pain 11/27/18 15:45 12/04/18 15:31 12/03/18 13:14 Francois Landis M.D. Dec 03, 2018 17:15
--- NOTE | 2018-12-03 17:46 | General Progress Note ---
Assessment/Plan Assessment: Assessment and Recs: # Coaaulopathy likely secondary to decreased Vitk dependent cofactors (high INR , PT) --> monitor closely for any evidence of bleeding --> hold off on mixing study at this time unless severe changes noted --> VIT K on prn basis sq can be administered # Anemia of chronic disease due to underlying chronic medical issues, multifactorial as well as kidney disease --> Anemia workup has been ordered, rule out gi bleed, seen by gi, also reviewed w/u --> No evidence of hemolysis is noted, peripheral smear has been reviewed. --> Hgb goal >7. Transfuse prn. --> Epogen can be consider if hgb downtrends --> Medications have been reviewed --> evaluate with Gi team prn --> transfuse if hgb is < 7 (will trend CBC daily) # Failure to thrive is likely related to poor overall status --> with multiple decub ulceerations that are noted, seen by id/surgery --> s/p trach as well --> cea is wnl # Acute respiratory failure is now s/p trach --> as per surgery recs # Ground glass opacity present on imaging of lung --> with pleural effusions, s/p drainage at this time --> no evidence for malignancy is noted # Pleural effusion --> s/p thoracentesis # Hyperkalemia --> kayxelate has been given # Renal failure --> per renal recs, appreciated --> getting hd as per schedule # Altered level of consciousness ==> currently as per baseline The timing of this note does not necessarily reflect the time of the patient was seen. Greatly appreciate consultation! Subjective Allergies: Coded Allergies: CEPHALEXIN (Unverified Allergy, Unknown, 02/24/14) SULFAMETHOXAZOLE (Unverified Allergy, Unknown, 02/24/14) TRIMETHOPRIM (Unverified Allergy, Unknown, 02/24/14) Subjective 11/30: comfortable, on abx, no complaints, on t-piece 12/01: to have hd done potentially tomorrow, is more alert/awake 12/02: no major bleeding, hgb remains approx 11, no changes 12/03: no events, breathing mildly better, hgb is improved Objective Last 24 Hour Vital Signs Date Time Temp Pulse Resp B/P (MAP) Pulse Ox O2 Delivery O2 Flow Rate FiO2 12/03/18 17:33 91 179/86 12/03/18 17:27 91 20 40 12/03/18 16:00 40 12/03/18 16:00 Mechanical Ventilator 12/03/18 16:00 75 12/03/18 16:00 98.3 76 23 179/86 (117) 99 12/03/18 15:23 87 25 40 12/03/18 13:09 91 28 40 12/03/18 12:00 76 12/03/18 11:58 40 12/03/18 11:56 Mechanical Ventilator 12/03/18 11:10 94 23 40 12/03/18 10:09 96 40 40 12/03/18 09:45 95 30 40 12/03/18 09:08 93 29 40 12/03/18 08:37 80 152/72 12/03/18 08:00 Mechanical Ventilator 12/03/18 08:00 97.8 80 21 152/72 (98) 100 12/03/18 08:00 40 12/03/18 08:00 78 12/03/18 07:26 Mechanical Ventilator 40 12/03/18 07:26 100 Mechanical Ventilator 40 12/03/18 07:25 87 26 40 12/03/18 05:00 83 23 40 12/03/18 04:00 98.4 87 19 126/88 (101) 100 12/03/18 04:00 40 12/03/18 04:00 77 12/03/18 04:00 Mechanical Ventilator 12/03/18 03:02 75 21 40 12/03/18 01:10 79 21 40 12/03/18 00:00 73 12/03/18 00:00 98.1 75 20 134/84 (101) 100 12/03/18 00:00 Mechanical Ventilator 12/02/18 22:58 82 22 40 12/02/18 22:41 Mechanical Ventilator 12/02/18 21:39 98.4 12/02/18 21:00 75 24 40 12/02/18 20:00 40 12/02/18 20:00 Mechanical Ventilator 12/02/18 20:00 98.2 78 23 130/74 (92) 100 12/02/18 19:24 79 12/02/18 19:01 79 23 40 4/17/19 19:01 Mechanical Ventilator 40 12/02/18 19:01 100 Mechanical Ventilator 40 Intake and Output 12/02/18 12/03/18 19:00 07:00 Intake Total 720 ml 735 ml Output Total 2000 ml Balance -1280 ml 735 ml Free Water 180 ml 150 ml Tube Feeding 540 ml 585 ml Hemodialysis UF 2000 ml # Bowel Movements 4 1 Height (Feet): 5 Height (Inches): 5.00 Weight (Pounds): 211 Objective PE General Appearance: mild distress, moderate distress Lines, tubes and drains: peripheral HEENT: EOMI, thrush, tonsils swollen ++trach Neck: normal inspection Respiratory/Chest: decreased breath sounds, accessory muscle use Cardiovascular/Chest: tachycardia Abdomen: soft, no organomegaly, no mass, ++ peg Extremities: other Skin Exam: warm/dry, rash Neurologic: alert, responsive Zacarias Khoury MD Dec 03, 2018 17:46
[2018-12-03 20:00] VITALS: BP 141/76
[2018-12-03] MEDS: OLANZapine 2.5mg tab NG SCH (20:28)
[2018-12-03] MEDS: Miralax 17gm pkt ORAL SCH (20:29)
[2018-12-04] VITALS: BP 110/74
[2018-12-04 04:00] VITALS: BP 131/72
[2018-12-04] MEDS: Renvela 800mg Pkt GT SCH ×3 (05:15→21:48)
[2018-12-04] MEDS: Acetaminophen 650mg/20.3ml GT SCH ×3 (05:16→21:02)
[2018-12-04] MEDS: NovoLOG Insulin Flexpen SUBQ SCH ×4 (05:17→23:52)
[2018-12-04 08:00] VITALS: BP 149/113
[2018-12-04] MEDS: Aspirin Baby 81mg GT SCH (08:42)
[2018-12-04] MEDS: traMADol 50mg tab GT PRN ×4 (08:44→23:31)
[2018-12-04] MEDS: Nystatin Susp 500,000 units/5ml ORAL SCH ×3 (08:45→18:00)
--- NOTE | 2018-12-04 13:49 | Pulmonology Progress Note ---
Assessment/Plan Assessment/Plan 1. Resp failure, hypercapneic 2. End-stage renal disease, on dialysis, status post multiple upper extremity vascular procedures. 3. Coronary artery bypass surgery. 4. Diabetes. 5. Dysphonia, tongue swelling, resolved; s/p trach PLAN: not tolerating weaning tolerates feeds disc w RN working on placement, difficult due to insurance Subjective Constitutional: Reports: no symptoms Allergies: Coded Allergies: CEPHALEXIN (Unverified Allergy, Unknown, 02/24/14) SULFAMETHOXAZOLE (Unverified Allergy, Unknown, 02/24/14) TRIMETHOPRIM (Unverified Allergy, Unknown, 02/24/14) Objective Last 24 Hour Vital Signs Date Time Temp Pulse Resp B/P (MAP) Pulse Ox O2 Delivery O2 Flow Rate FiO2 12/04/18 13:15 99 12/04/18 13:08 75 22 40 12/04/18 12:00 40 12/04/18 12:00 Mechanical Ventilator 12/04/18 11:01 71 23 40 12/04/18 09:43 76 149/113 12/04/18 09:30 Mechanical Ventilator 40 12/04/18 09:30 97 Mechanical Ventilator 40 12/04/18 09:28 76 22 40 12/04/18 08:16 75 21 40 12/04/18 08:00 40 12/04/18 08:00 Mechanical Ventilator 12/04/18 08:00 97.0 73 23 149/113 (125) 100 12/04/18 07:40 75 12/04/18 04:45 73 22 40 12/04/18 04:00 40 12/04/18 04:00 Mechanical Ventilator 12/04/18 04:00 97.8 85 23 131/72 (91) 100 12/04/18 03:36 72 12/04/18 02:43 72 20 40 12/04/18 01:22 71 23 40 12/04/18 00:00 Mechanical Ventilator 12/04/18 00:00 98.0 71 22 110/74 (86) 100 12/03/18 23:38 72 12/03/18 23:22 74 23 40 12/03/18 21:12 75 19 40 12/03/18 20:00 40 12/03/18 20:00 98.1 73 22 141/76 (97) 99 12/03/18 20:00 Mechanical Ventilator 12/03/18 19:09 84 12/03/18 19:00 Mechanical Ventilator 40 12/03/18 19:00 84 32 40 12/03/18 19:00 95 Mechanical Ventilator 40 12/03/18 17:33 91 179/86 12/03/18 17:27 91 20 40 12/03/18 16:00 40 12/03/18 16:00 Mechanical Ventilator 12/03/18 16:00 75 12/03/18 16:00 98.3 76 23 179/86 (117) 99 12/03/18 15:23 87 25 40 Intake and Output 12/03/18 12/04/18 19:00 07:00 Intake Total 720 ml 690 ml Balance 720 ml 690 ml Free Water 180 ml 150 ml Tube Feeding 540 ml 540 ml # Bowel Movements 4 2 Objective trach on vent General Appearance: no acute distress HEENT: normocephalic, atraumatic Cardiovascular: regular rhythm Current Medications Medications (Trade) Dose Ordered Sig/Aleks Route PRN Reason Start Time Stop Time Status Last Admin Dose Admin Acetaminophen (Tylenol) 650 mg Q4H PRN NG Mild Pain/Temp > 100.5 11/12/18 19:00 12/12/18 18:47 11/28/18 05:31 Acetaminophen (Tylenol) 650 mg Q8H GT 11/28/18 13:15 12/28/18 13:14 12/04/18 12:43 Amlodipine Besylate (Norvasc) 2.5 mg BID GT 12/03/18 18:00 12/22/18 08:59 12/04/18 09:43 Aspirin (ASA) 81 mg DAILY GT 11/20/18 09:00 12/20/18 08:59 12/04/18 08:42 Atorvastatin Calcium (Lipitor) 10 mg BEDTIME NG 12/01/18 21:00 12/21/18 20:59 12/03/18 20:29 Dextrose (Dextrose 50%) 25 ml Q30M PRN IV Hypoglycemia 12/01/18 19:30 12/31/18 19:29 Dextrose (Dextrose 50%) 50 ml Q30M PRN IV Hypoglycemia 12/01/18 19:30 12/31/18 19:29 Docusate Sodium (Colace) 100 mg EVERY 8 HOURS PRN GT constipation 11/24/18 18:51 12/20/18 18:50 Hydralazine HCl (Apresoline) 10 mg Q6H PRN GT For High Blood Pressure 12/03/18 16:45 01/02/19 16:44 Insulin Aspart (NovoLOG) EVERY 6 HOURS SUBQ 12/02/18 00:00 12/31/18 20:59 12/04/18 12:51 Lactulose (Cephulac) 20 gm THREE TIMES A DAY PRN GT Constipation 11/24/18 18:51 12/23/18 18:50 Lansoprazole (Prevacid) 30 mg BID GT 11/20/18 09:00 12/20/18 08:59 12/04/18 08:42 Nicotine (Nicoderm) 1 patch Q24H TDERMAL 12/01/18 22:15 12/21/18 22:14 12/03/18 21:22 Nystatin (Nystatin) 5 ml TID ORAL 11/29/18 18:00 12/06/18 17:59 12/04/18 12:40 Olanzapine (ZyPREXA) 2.5 mg BEDTIME NG 11/13/18 21:00 12/13/18 20:59 12/03/18 20:28 Olanzapine (ZyPREXA) 2.5 mg Q6H PRN ORAL agitation 11/15/18 23:00 12/15/18 22:59 Polyethylene Glycol (Miralax) 17 gm BEDTIME ORAL 11/23/18 21:00 12/23/18 20:59 11/30/18 21:10 Polyethylene Glycol (Miralax) 17 gm DAILYPRN PRN NG Constipation 11/12/18 19:00 12/11/18 15:29 11/13/18 05:30 Sevelamer Carbonate (Renvela) 800 mg Q8HR GT 11/20/18 14:00 12/20/18 13:59 12/04/18 05:15 Tacrolimus (Prograf) 2 mg MoWeFr@0000,1200 ORAL 12/02/18 00:00 12/21/18 00:00 12/04/18 12:41 Tacrolimus (Prograf) 2 mg SuTuThSa@0900,2100 ORAL 11/17/18 21:00 12/17/18 20:59 12/03/18 20:28 Tramadol HCl (Ultram) 50 mg Q4H PRN GT For Moderate pain 11/27/18 15:45 12/04/18 15:31 12/04/18 13:01 Saroj Mendoza MD Dec 04, 2018 13:49
--- NOTE | 2018-12-04 13:56 | Nephrology Progress Note ---
Assessment/Plan Problem List: (1) ESRD (end stage renal disease) on dialysis (2) Foot ulcer (3) CHF (congestive heart failure) (4) Pacemaker (5) Acute respiratory failure Assessment: with Co2 retention Assessment ESRD with high K and SOB on admit Foot ulcer, likely infected High Troponin likely NSTMI Pacer , Pleural effusion s/p CABGS s/p Liver transplant Plan Tylenol RTC pain, and tramadol as needed Now has tracheostomy and PEG Adjust BP meds HD next Antibiotics by ID start tube feeding / hasPEG per cardio and ID Podiatry and Vascular surgical fu PRN tramadol for pain ? DC planning? ALSO COVERING MEDCINE FOR DR BERG Subjective ROS Limited/Unobtainable: No Objective Objective Last 24 Hour Vital Signs Date Time Temp Pulse Resp B/P (MAP) Pulse Ox O2 Delivery O2 Flow Rate FiO2 12/04/18 13:15 99 12/04/18 13:08 75 22 40 12/04/18 12:00 40 12/04/18 12:00 Mechanical Ventilator 12/04/18 11:01 71 23 40 12/04/18 09:43 76 149/113 12/04/18 09:30 Mechanical Ventilator 40 12/04/18 09:30 97 Mechanical Ventilator 40 12/04/18 09:28 76 22 40 12/04/18 08:16 75 21 40 12/04/18 08:00 40 12/04/18 08:00 Mechanical Ventilator 12/04/18 08:00 97.0 73 23 149/113 (125) 100 12/04/18 07:40 75 12/04/18 04:45 73 22 40 12/04/18 04:00 40 12/04/18 04:00 Mechanical Ventilator 12/04/18 04:00 97.8 85 23 131/72 (91) 100 12/04/18 03:36 72 12/04/18 02:43 72 20 40 12/04/18 01:22 71 23 40 12/04/18 00:00 Mechanical Ventilator 12/04/18 00:00 98.0 71 22 110/74 (86) 100 12/03/18 23:38 72 12/03/18 23:22 74 23 40 12/03/18 21:12 75 19 40 12/03/18 20:00 40 12/03/18 20:00 98.1 73 22 141/76 (97) 99 12/03/18 20:00 Mechanical Ventilator 12/03/18 19:09 84 12/03/18 19:00 Mechanical Ventilator 40 12/03/18 19:00 84 32 40 12/03/18 19:00 95 Mechanical Ventilator 40 12/03/18 17:33 91 179/86 12/03/18 17:27 91 20 40 12/03/18 16:00 40 12/03/18 16:00 Mechanical Ventilator 12/03/18 16:00 75 12/03/18 16:00 98.3 76 23 179/86 (117) 99 12/03/18 15:23 87 25 40 Intake and Output 12/03/18 12/04/18 19:00 07:00 Intake Total 720 ml 690 ml Balance 720 ml 690 ml Free Water 180 ml 150 ml Tube Feeding 540 ml 540 ml # Bowel Movements 4 2 Height (Feet): 5 Height (Inches): 5.00 Weight (Pounds): 213 General Appearance: no apparent distress EENT: other - trach Cardiovascular: normal rate Respiratory/Chest: decreased breath sounds Abdomen: distended Objective no other change Nakul Stevens MD Dec 04, 2018 13:56
--- NOTE | 2018-12-04 15:15 | Cardiac Electrophysiology PN ---
Assessment/Plan Assessment/Plan 1. Troponin leak with no chest pain. Hx of CABG. Due to renal failure. DC Amlodipine. Resume Coreg 3.125 mg bid, aspirin and Lipitor 2. S/P CABG 3. Nonsustained ventricular tachycardia. Hx of old CT and CABG. EF 55%. No Syncope 4. Congestive heart failure. On hemodialysis 5. End-stage renal disease, on hemodialysis per Dr. Stevens 6. Status post right sided [employer]onic dual chamber pacemaker with Nl Fx. 7. Right foot ulcer. Antibiotic per Dr. Landis. FU by Dr. Huizar 8. History of liver transplant on Prograf 9. Respiratory failure, ? etiology anaphylaxis. S/P Emergency tracheostomy. 10. Pleural effusion. FU Dr. Mendoza 11. Dysphagia, S/P PEG DW RN Subjective Subjective On the vent via tracheostomy.Paced rhythm. No new events Objective Last 24 Hour Vital Signs Date Time Temp Pulse Resp B/P (MAP) Pulse Ox O2 Delivery O2 Flow Rate FiO2 12/04/18 14:47 72 19 40 12/04/18 13:15 99 12/04/18 13:08 75 22 40 12/04/18 12:00 40 12/04/18 12:00 Mechanical Ventilator 12/04/18 12:00 23 100 12/04/18 11:34 70 12/04/18 11:01 71 23 40 12/04/18 09:43 76 149/113 12/04/18 09:30 Mechanical Ventilator 40 12/04/18 09:30 97 Mechanical Ventilator 40 12/04/18 09:28 76 22 40 12/04/18 08:16 75 21 40 12/04/18 08:00 40 12/04/18 08:00 Mechanical Ventilator 12/04/18 08:00 97.0 73 23 149/113 (125) 100 12/04/18 07:40 75 12/04/18 04:45 73 22 40 12/04/18 04:00 40 12/04/18 04:00 Mechanical Ventilator 12/04/18 04:00 97.8 85 23 131/72 (91) 100 12/04/18 03:36 72 12/04/18 02:43 72 20 40 12/04/18 01:22 71 23 40 12/04/18 00:00 Mechanical Ventilator 12/04/18 00:00 98.0 71 22 110/74 (86) 100 12/03/18 23:38 72 12/03/18 23:22 74 23 40 12/03/18 21:12 75 19 40 12/03/18 20:00 40 12/03/18 20:00 98.1 73 22 141/76 (97) 99 12/03/18 20:00 Mechanical Ventilator 12/03/18 19:09 84 12/03/18 19:00 Mechanical Ventilator 40 12/03/18 19:00 84 32 40 12/03/18 19:00 95 Mechanical Ventilator 40 12/03/18 17:33 91 179/86 12/03/18 17:27 91 20 40 12/03/18 16:00 40 12/03/18 16:00 Mechanical Ventilator 12/03/18 16:00 75 12/03/18 16:00 98.3 76 23 179/86 (117) 99 12/03/18 15:23 87 25 40 Intake and Output 12/03/18 12/04/18 19:00 07:00 Intake Total 720 ml 690 ml Balance 720 ml 690 ml Free Water 180 ml 150 ml Tube Feeding 540 ml 540 ml # Bowel Movements 4 2 Objective HEAD AND NECK: No JVD.Tracheostomy intact LUNGS: Coarse rhonchi. CARDIOVASCULAR: Regular S1 and S2 with no gallop. Sternotomy is intact Pacemaker in the right subclavian ABDOMEN: Soft.PEG in place EXTREMITIES: 1+ pitting edema Shivam Sharpe MD Dec 04, 2018 15:15
[2018-12-04 16:00] VITALS: BP 120/75
--- NOTE | 2018-12-04 16:19 | Infectious Diseases Prog Note ---
Assessment/Plan Problems: (1) Thrush, oral Assessment & Plan: continue local nystatin , stop micafungin, S/P almost three weeks empirically (2) HCV antibody positive Assessment & Plan: no evidence of active infection, with undetectable viral load , suspect due to previous infection , cleared, S/P liver transplant . (3) Foot ulcer Assessment & Plan: in diabetic patient , with MRSA , S/P vancomycin treatment with HD for two weeks , pending vascular eval and possible surgical debridement. bone scan ruled out osteomyelitis of the heel . 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 now improving, pulmonary is following (8) Pleural effusion Assessment & Plan: recurrent on the right, with lung collapse , S/P thoracentesis X2 with removal of 1.5 cc of clear fluids. PREVIOUS culture were negative with negative cytology Subjective Constitutional: Reports: no symptoms HEENT: Reports: no symptoms Respiratory: Reports: no symptoms Breasts: Reports: no symptoms Cardiovascular: Reports: no symptoms Gastrointestinal/Abdominal: Reports: no symptoms Genitourinary: Reports: no symptoms Neurologic: Reports: no symptoms Psychiatric: Reports: no symptoms Skin: Reports: no symptoms Endocrine: Reports: no symptoms Hematologic: Reports: no symptoms Musculoskeletal: Reports: no symptoms Allergies: Coded Allergies: CEPHALEXIN (Unverified Allergy, Unknown, 02/24/14) SULFAMETHOXAZOLE (Unverified Allergy, Unknown, 02/24/14) TRIMETHOPRIM (Unverified Allergy, Unknown, 02/24/14) Subjective he was comfortable, has no facial swelling and mild tongue swelling , awake and responsive, no fever or chills, no significant secretions , no SOB . has less thrush on his tongue Objective Vital Signs Last 24 Hour Vital Signs Date Time Temp Pulse Resp B/P (MAP) Pulse Ox O2 Delivery O2 Flow Rate FiO2 12/04/18 16:00 Mechanical Ventilator 12/04/18 16:00 40 12/04/18 14:47 72 19 40 12/04/18 13:15 99 12/04/18 13:08 75 22 40 12/04/18 12:00 40 12/04/18 12:00 Mechanical Ventilator 12/04/18 12:00 23 100 12/04/18 11:34 70 12/04/18 11:01 71 23 40 12/04/18 09:43 76 149/113 12/04/18 09:30 Mechanical Ventilator 40 12/04/18 09:30 97 Mechanical Ventilator 40 12/04/18 09:28 76 22 40 12/04/18 08:16 75 21 40 12/04/18 08:00 40 12/04/18 08:00 Mechanical Ventilator 12/04/18 08:00 97.0 73 23 149/113 (125) 100 12/04/18 07:40 75 12/04/18 04:45 73 22 40 12/04/18 04:00 40 12/04/18 04:00 Mechanical Ventilator 12/04/18 04:00 97.8 85 23 131/72 (91) 100 12/04/18 03:36 72 12/04/18 02:43 72 20 40 12/04/18 01:22 71 23 40 12/04/18 00:00 Mechanical Ventilator 12/04/18 00:00 98.0 71 22 110/74 (86) 100 12/03/18 23:38 72 12/03/18 23:22 74 23 40 12/03/18 21:12 75 19 40 12/03/18 20:00 40 12/03/18 20:00 98.1 73 22 141/76 (97) 99 12/03/18 20:00 Mechanical Ventilator 12/03/18 19:09 84 12/03/18 19:00 Mechanical Ventilator 40 12/03/18 19:00 84 32 40 12/03/18 19:00 95 Mechanical Ventilator 40 12/03/18 17:33 91 179/86 12/03/18 17:27 91 20 40 Height (Feet): 5 Height (Inches): 5.00 Weight (Pounds): 213 General Appearance: WD/WN, no acute distress HEENT: normocephalic, atraumatic, anicteric, mucous membranes moist, PERRL, pharynx normal, supple, no JVD, status post trach Respiratory/Chest: chest wall non-tender, no respiratory distress, no accessory muscle use, decreased breath sounds, crackles/rales Cardiovascular: normal peripheral pulses, normal rate, regular rhythm, no gallop/murmur, no JVD Abdomen: normal bowel sounds, soft, non tender, no organomegaly, non distended , no mass, no scars Genitourinary: normal external genitalia Extremities: no cyanosis, no clubbing Skin: no rash, no lesions, ulcers 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: senior biostatistician 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 normal, alert, oriented x 3, responsive Lymphatic: no neck adenopathy, no groin adenopathy Musculoskeletal: normal muscle bulk, no effusion Current Medications Medications (Trade) Dose Ordered Sig/Aleks Route PRN Reason Start Time Stop Time Status Last Admin Dose Admin Acetaminophen (Tylenol) 650 mg Q4H PRN NG Mild Pain/Temp > 100.5 11/12/18 19:00 12/12/18 18:47 11/28/18 05:31 Acetaminophen (Tylenol) 650 mg Q8H GT 11/28/18 13:15 12/28/18 13:14 12/04/18 12:43 Aspirin (ASA) 81 mg DAILY GT 11/20/18 09:00 12/20/18 08:59 12/04/18 08:42 Atorvastatin Calcium (Lipitor) 10 mg BEDTIME NG 12/01/18 21:00 12/21/18 20:59 12/03/18 20:29 Carvedilol (Coreg) 3.125 mg EVERY 12 HOURS PEG 12/04/18 21:00 01/03/19 20:59 Dextrose (Dextrose 50%) 25 ml Q30M PRN IV Hypoglycemia 12/01/18 19:30 12/31/18 19:29 Dextrose (Dextrose 50%) 50 ml Q30M PRN IV Hypoglycemia 12/01/18 19:30 12/31/18 19:29 Docusate Sodium (Colace) 100 mg EVERY 8 HOURS PRN GT constipation 11/24/18 18:51 12/20/18 18:50 Hydralazine HCl (Apresoline) 10 mg Q6H PRN GT For High Blood Pressure 12/03/18 16:45 01/02/19 16:44 Insulin Aspart (NovoLOG) EVERY 6 HOURS SUBQ 12/02/18 00:00 12/31/18 20:59 12/04/18 12:51 Lactulose (Cephulac) 20 gm THREE TIMES A DAY PRN GT Constipation 11/24/18 18:51 12/23/18 18:50 Lansoprazole (Prevacid) 30 mg BID GT 11/20/18 09:00 12/20/18 08:59 12/04/18 08:42 Nicotine (Nicoderm) 1 patch Q24H TDERMAL 12/01/18 22:15 12/21/18 22:14 12/03/18 21:22 Nystatin (Nystatin) 5 ml TID ORAL 11/29/18 18:00 12/06/18 17:59 12/04/18 12:40 Olanzapine (ZyPREXA) 2.5 mg BEDTIME NG 11/13/18 21:00 12/13/18 20:59 12/03/18 20:28 Olanzapine (ZyPREXA) 2.5 mg Q6H PRN ORAL agitation 11/15/18 23:00 12/15/18 22:59 Polyethylene Glycol (Miralax) 17 gm BEDTIME ORAL 11/23/18 21:00 12/23/18 20:59 11/30/18 21:10 Polyethylene Glycol (Miralax) 17 gm DAILYPRN PRN NG Constipation 11/12/18 19:00 12/11/18 15:29 11/13/18 05:30 Sevelamer Carbonate (Renvela) 800 mg Q8HR GT 11/20/18 14:00 12/20/18 13:59 12/04/18 14:19 Tacrolimus (Prograf) 2 mg MoWeFr@0000,1200 ORAL 12/02/18 00:00 12/21/18 00:00 12/04/18 12:41 Tacrolimus (Prograf) 2 mg SuTuThSa@0900,2100 ORAL 11/17/18 21:00 12/17/18 20:59 12/03/18 20:28 Tramadol HCl (Ultram) 50 mg Q4H PRN GT Moderate Pain (Pain Scale 4-6) 12/04/18 16:15 12/11/18 16:14 Francois Landis M.D. Dec 04, 2018 16:19
--- NOTE | 2018-12-04 17:18 | General Progress Note ---
Assessment/Plan Assessment: Assessment and Recs: # Coaaulopathy likely secondary to decreased Vitk dependent cofactors (high INR , PT) --> monitor closely for any evidence of bleeding --> hold off on mixing study at this time unless severe changes noted --> VIT K on prn basis sq can be administered # Anemia of chronic disease due to underlying chronic medical issues, multifactorial as well as kidney disease --> Anemia workup has been ordered, rule out gi bleed, seen by gi, also reviewed w/u --> No evidence of hemolysis is noted, peripheral smear has been reviewed. --> Hgb goal >7. Transfuse prn. --> Epogen can be consider if hgb downtrends --> Medications have been reviewed --> evaluate with Gi team prn --> transfuse if hgb is < 7 (will trend CBC daily) # Failure to thrive is likely related to poor overall status --> with multiple decub ulceerations that are noted, seen by id/surgery --> s/p trach as well --> cea is wnl # Acute respiratory failure is now s/p trach --> as per surgery recs # Ground glass opacity present on imaging of lung --> with pleural effusions, s/p drainage at this time --> no evidence for malignancy is noted # Pleural effusion --> s/p thoracentesis # Hyperkalemia --> kayxelate has been given # Renal failure --> per renal recs, appreciated --> getting hd as per schedule # Altered level of consciousness ==> currently as per baseline The timing of this note does not necessarily reflect the time of the patient was seen. Greatly appreciate consultation! Subjective Constitutional: Denies: no symptoms, chills, diaphoresis, fever, malaise, weakness, other HEENT: Denies: no symptoms, eye pain, blurred vision, tearing, double vision, ear pain, ear discharge, nose pain, nose congestion, throat pain, throat swelling, mouth pain, mouth swelling, other Cardiovascular: Denies: no symptoms, chest pain, edema, irregular heart rate, lightheadedness, palpitations, syncope, other Respiratory: Denies: no symptoms, cough, orthopnea, shortness of breath, SOB with excertion, SOB at rest, sputum, stridor, wheezing, other Gastrointestinal/Abdominal: Denies: no symptoms, abdomen distended, abdominal pain, black stools, tarry stools, blood in stool, constipated, diarrhea, difficulty swallowing, nausea, poor appetite, poor fluid intake, rectal bleeding , vomiting, other Genitourinary: Denies: no symptoms, burning, discharge, frequency, flank pain, hematuria, incontinence, pain, urgency, other 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: Denies: no symptoms, anxiety, depressed, emotional problems, headache, numbness, paresthesia, pre-existing deficit, seizure, tingling, tremors, weakness, other Endocrine: Denies: no symptoms, excessive sweating, flushing, intolerance to cold, intolerance to heat, increased hunger, increased thirst, increased urine, unexplained weight gain, unexplained weight loss, other Hematologic/Lymphatic: Denies: no symptoms, anemia, easy bleeding, easy bruising, other Allergies: Coded Allergies: CEPHALEXIN (Unverified Allergy, Unknown, 02/24/14) SULFAMETHOXAZOLE (Unverified Allergy, Unknown, 02/24/14) TRIMETHOPRIM (Unverified Allergy, Unknown, 02/24/14) Subjective 11/30: comfortable, on abx, no complaints, on t-piece 12/01: to have hd done potentially tomorrow, is more alert/awake 12/02: no major bleeding, hgb remains approx 11, no changes 12/03: no events, breathing mildly better, hgb is improved 12/04: on vent/trach, no major changes, sr ekg Objective Last 24 Hour Vital Signs Date Time Temp Pulse Resp B/P (MAP) Pulse Ox O2 Delivery O2 Flow Rate FiO2 12/04/18 16:00 Mechanical Ventilator 12/04/18 16:00 40 12/04/18 14:47 72 19 40 12/04/18 13:15 99 12/04/18 13:08 75 22 40 12/04/18 12:00 40 12/04/18 12:00 Mechanical Ventilator 12/04/18 12:00 23 100 12/04/18 11:34 70 12/04/18 11:01 71 23 40 12/04/18 09:43 76 149/113 12/04/18 09:30 Mechanical Ventilator 40 12/04/18 09:30 97 Mechanical Ventilator 40 12/04/18 09:28 76 22 40 12/04/18 08:16 75 21 40 12/04/18 08:00 40 12/04/18 08:00 Mechanical Ventilator 12/04/18 08:00 97.0 73 23 149/113 (125) 100 12/04/18 07:40 75 12/04/18 04:45 73 22 40 12/04/18 04:00 40 12/04/18 04:00 Mechanical Ventilator 12/04/18 04:00 97.8 85 23 131/72 (91) 100 12/04/18 03:36 72 12/04/18 02:43 72 20 40 12/04/18 01:22 71 23 40 12/04/18 00:00 Mechanical Ventilator 12/04/18 00:00 98.0 71 22 110/74 (86) 100 12/03/18 23:38 72 12/03/18 23:22 74 23 40 12/03/18 21:12 75 19 40 12/03/18 20:00 40 12/03/18 20:00 98.1 73 22 141/76 (97) 99 12/03/18 20:00 Mechanical Ventilator 12/03/18 19:09 84 12/03/18 19:00 Mechanical Ventilator 40 12/03/18 19:00 84 32 40 12/03/18 19:00 95 Mechanical Ventilator 40 12/03/18 17:33 91 179/86 12/03/18 17:27 91 20 40 Intake and Output 12/03/18 12/04/18 19:00 07:00 Intake Total 720 ml 690 ml Balance 720 ml 690 ml Free Water 180 ml 150 ml Tube Feeding 540 ml 540 ml # Bowel Movements 4 2 Height (Feet): 5 Height (Inches): 5.00 Weight (Pounds): 213 Objective PE General Appearance: mild distress, moderate distress Lines, tubes and drains: peripheral HEENT: EOMI, thrush, tonsils swollen ++trach Neck: normal inspection Respiratory/Chest: decreased breath sounds, accessory muscle use Cardiovascular/Chest: tachycardia Abdomen: soft, no organomegaly, no mass, ++ peg Extremities: other Skin Exam: warm/dry, rash Neurologic: alert, responsive Zacarias Khoury MD Dec 04, 2018 17:18
[2018-12-04 18:02] LABS: BASOPHILS % (AUTO) 2.2 % (0.0-2.0); HEMATOCRIT 35.6 % (42.0-52.0); HEMOGLOBIN 10.9 G/DL (14.2-18.0); LYMPHOCYTES % (AUTO) 19.8 % (20.0-45.0); MEAN CORPUSCULAR VOLUME 79 FL (80-99); MONOCYTES % (AUTO) 8.3 % (1.0-10.0); NEUTROPHILS % (AUTO) 69.8 % (45.0-75.0); PLATELET COUNT 181 K/UL (150-450); RED BLOOD COUNT 4.49 M/UL (4.70-6.10); RED CELL DISTRIBUTION WIDTH 16.3 % (11.6-14.8)
[2018-12-04 18:22] LABS: AMMONIA 21 umol/L (11-32)
[2018-12-04 18:33] LABS: ALANINE AMINOTRANSFERASE 12 U/L (12-78); ALBUMIN 2.1 G/DL (3.4-5.0); ALBUMIN/GLOBULIN RATIO 0.5 (1.0-2.7); ALKALINE PHOSPHATASE 128 U/L (46-116); ANION GAP 10 mmol/L (5-15); ASPARTATE AMINO TRANSFERASE 12 U/L (15-37); BILIRUBIN,TOTAL 0.3 MG/DL (0.2-1.0); BLOOD UREA NITROGEN 74 mg/dL (7-18); CALCIUM 9.2 MG/DL (8.5-10.1); CARBON DIOXIDE 29 MMOL/L (21-32); CHLORIDE 93 MMOL/L (98-107); CREATININE 7.3 MG/DL (0.55-1.30); PHOSPHORUS 4.2 MG/DL (2.5-4.9); POTASSIUM 4.8 MMOL/L (3.5-5.1); SODIUM 132 MMOL/L (136-145)
[2018-12-04 20:00] VITALS: BP 138/84
[2018-12-04] MEDS: OLANZapine 2.5mg tab NG SCH (21:00)
[2018-12-04] MEDS: Miralax 17gm pkt ORAL SCH (21:00)
--- NOTE | 2018-12-04 21:15 | Psych Consult Progress Note ---
Psychiatry Progress Note Psychiatry Progress Note Medications Current Medications Medications (Trade) Dose Ordered Sig/Aleks Route PRN Reason Start Time Stop Time Status Last Admin Dose Admin Acetaminophen (Tylenol) 650 mg Q4H PRN NG Mild Pain/Temp > 100.5 11/12/18 19:00 12/12/18 18:47 11/28/18 05:31 Acetaminophen (Tylenol) 650 mg Q8H GT 11/28/18 13:15 12/28/18 13:14 12/04/18 21:02 Aspirin (ASA) 81 mg DAILY GT 11/20/18 09:00 12/20/18 08:59 12/04/18 08:42 Atorvastatin Calcium (Lipitor) 10 mg BEDTIME NG 12/01/18 21:00 12/21/18 20:59 12/04/18 21:00 Carvedilol (Coreg) 3.125 mg EVERY 12 HOURS PEG 12/04/18 21:00 01/03/19 20:59 12/04/18 21:00 Dextrose (Dextrose 50%) 25 ml Q30M PRN IV Hypoglycemia 12/01/18 19:30 12/31/18 19:29 Dextrose (Dextrose 50%) 50 ml Q30M PRN IV Hypoglycemia 12/01/18 19:30 12/31/18 19:29 Docusate Sodium (Colace) 100 mg EVERY 8 HOURS PRN GT constipation 11/24/18 18:51 12/20/18 18:50 Hydralazine HCl (Apresoline) 10 mg Q6H PRN GT For High Blood Pressure 12/03/18 16:45 01/02/19 16:44 Insulin Aspart (NovoLOG) EVERY 6 HOURS SUBQ 12/02/18 00:00 12/31/18 20:59 12/04/18 18:10 Lactulose (Cephulac) 20 gm THREE TIMES A DAY PRN GT Constipation 11/24/18 18:51 12/23/18 18:50 Lansoprazole (Prevacid) 30 mg BID GT 11/20/18 09:00 12/20/18 08:59 12/04/18 18:00 Nicotine (Nicoderm) 1 patch Q24H TDERMAL 12/01/18 22:15 12/21/18 22:14 12/03/18 21:22 Nystatin (Nystatin) 5 ml TID ORAL 11/29/18 18:00 12/06/18 17:59 12/04/18 18:00 Olanzapine (ZyPREXA) 2.5 mg BEDTIME NG 11/13/18 21:00 12/13/18 20:59 12/04/18 21:00 Olanzapine (ZyPREXA) 2.5 mg Q6H PRN ORAL agitation 11/15/18 23:00 12/15/18 22:59 Polyethylene Glycol (Miralax) 17 gm BEDTIME ORAL 11/23/18 21:00 12/23/18 20:59 11/30/18 21:10 Polyethylene Glycol (Miralax) 17 gm DAILYPRN PRN NG Constipation 11/12/18 19:00 12/11/18 15:29 11/13/18 05:30 Sevelamer Carbonate (Renvela) 800 mg Q8HR GT 11/20/18 14:00 12/20/18 13:59 12/04/18 14:19 Tacrolimus (Prograf) 2 mg MoWeFr@0000,1200 ORAL 12/02/18 00:00 12/21/18 00:00 12/04/18 12:41 Tacrolimus (Prograf) 2 mg SuTuThSa@0900,2100 ORAL 11/17/18 21:00 12/17/18 20:59 12/03/18 20:28 Tramadol HCl (Ultram) 50 mg Q4H PRN GT Moderate Pain (Pain Scale 4-6) 12/04/18 16:15 12/11/18 16:14 12/04/18 18:00 Problems: (1) Encephalopathy acute Status: Chronic Allergies: Coded Allergies: CEPHALEXIN (Unverified Allergy, Unknown, 02/24/14) SULFAMETHOXAZOLE (Unverified Allergy, Unknown, 02/24/14) TRIMETHOPRIM (Unverified Allergy, Unknown, 02/24/14) Objective Data Height (Feet): 5 Height (Inches): 5.00 Weight (Pounds): 213 General Appearance: WD/WN, no apparent distress, alert Appearance: disheveled Behavior Mannerisms: good eye contact Mental Status Exam - Affect: blunted Mental Status Exam - Mood: anxious Assessment/Plan Problem List: (1) Encephalopathy acute ICD Codes: G93.40 - Encephalopathy, unspecified SNOMED: [id number], [id number] Status: stable Assessment: Zyprexa 2.5mg po qhs haldol IM prn the pt lacks capacity ativan 1mg gt prior to weaning off from vent Jeffrey Lala MD Dec 04, 2018 21:15
[2018-12-05] VITALS: BP 112/96
[2018-12-05 04:00] VITALS: BP 152/84
[2018-12-05] MEDS: Acetaminophen 650mg/20.3ml GT SCH ×3 (05:01→21:42)
[2018-12-05] MEDS: Renvela 800mg Pkt GT SCH ×3 (05:34→21:42)
[2018-12-05] MEDS: traMADol 50mg tab GT PRN ×3 (05:35→15:49)
[2018-12-05] MEDS: NovoLOG Insulin Flexpen SUBQ SCH ×4 (05:36→23:54)
[2018-12-05 08:00] VITALS: BP 142/67
[2018-12-05] MEDS: Aspirin Baby 81mg GT SCH (08:11)
[2018-12-05] MEDS: Nystatin Susp 500,000 units/5ml ORAL SCH (08:11)
[2018-12-05 12:00] VITALS: BP 109/55
[2018-12-05] MEDS: Nystatin Susp 500,000 units/5ml GT SCH ×2 (13:15→17:17)
--- NOTE | 2018-12-05 14:09 | Cardiac Electrophysiology PN ---
Assessment/Plan Assessment/Plan 1. Troponin leak with no chest pain. Due to renal failure. On Coreg 3.125 mg bid, aspirin and Lipitor 2. S/P CABG 3. Nonsustained ventricular tachycardia. Hx of old KS and CABG. EF 55%. No Syncope 4. Congestive heart failure. On hemodialysis 5. End-stage renal disease, on hemodialysis per Dr. Stevens 6. Status post right sided Med[employer] dual chamber pacemaker with Nl Fx. 7. Right foot ulcer. Antibiotic per Dr. Landis. FU by Dr. Huizar 8. History of liver transplant on Prograf 9. Respiratory failure, ? etiology anaphylaxis. S/P Emergency tracheostomy. 10. Pleural effusion. FU Dr. Mendoza 11. Dysphagia, S/P PEG DW RN Subjective Subjective On the vent via tracheostomy.Paced rhythm. Had 9 beats of nonsustained VT overnight. Objective Last 24 Hour Vital Signs Date Time Temp Pulse Resp B/P (MAP) Pulse Ox O2 Delivery O2 Flow Rate FiO2 12/05/18 13:05 78 21 40 12/05/18 12:00 40 12/05/18 12:00 97.6 70 20 109/55 (73) 100 12/05/18 12:00 Mechanical Ventilator 12/05/18 11:34 70 12/05/18 11:27 99 12/05/18 11:18 70 23 40 12/05/18 09:47 65 18 40 12/05/18 08:11 73 142/67 12/05/18 08:00 98.0 73 22 142/67 (92) 100 12/05/18 08:00 40 12/05/18 08:00 Mechanical Ventilator 12/05/18 07:40 73 12/05/18 07:02 75 18 40 12/05/18 07:02 99 Mechanical Ventilator 40 12/05/18 07:02 Mechanical Ventilator 40 12/05/18 04:31 70 24 40 12/05/18 04:00 97.0 73 20 152/84 (106) 100 12/05/18 04:00 Mechanical Ventilator 12/05/18 04:00 40 12/05/18 03:38 74 12/05/18 03:08 75 23 40 12/05/18 00:56 71 24 40 12/05/18 00:00 Mechanical Ventilator 12/05/18 00:00 97.7 77 19 112/96 (101) 100 4/20/19 00:00 77 12/04/18 22:54 74 22 40 12/04/18 21:27 75 21 40 12/04/18 21:00 75 138/84 12/04/18 20:00 Mechanical Ventilator 12/04/18 20:00 40 12/04/18 20:00 75 12/04/18 20:00 97.7 75 19 138/84 (102) 100 12/04/18 18:56 70 22 40 12/04/18 18:56 99 Mechanical Ventilator 40 12/04/18 18:56 Mechanical Ventilator 40 12/04/18 17:21 71 20 40 12/04/18 16:00 70 12/04/18 16:00 Mechanical Ventilator 12/04/18 16:00 40 12/04/18 16:00 98.4 19 120/75 (90) 100 12/04/18 14:47 72 19 40 Intake and Output 12/04/18 12/05/18 19:00 07:00 Intake Total 640 ml 640 ml Balance 640 ml 640 ml Free Water 100 ml Tube Feeding 540 ml 540 ml Other 100 ml # Bowel Movements 1 3 Laboratory Tests Test 12/04/18 17:00 White Blood Count 7.0 K/UL (4.8-10.8) Red Blood Count 4.49 M/UL (4.70-6.10) L Hemoglobin 10.9 G/DL (14.2-18.0) L Hematocrit 35.6 % (42.0-52.0) L Mean Corpuscular Volume 79 FL (80-99) L Mean Corpuscular Hemoglobin 24.3 PG (27.0-31.0) L Mean Corpuscular Hemoglobin Concent 30.6 G/DL (32.0-36.0) L Red Cell Distribution Width 16.3 % (11.6-14.8) H Platelet Count 181 K/UL (150-450) Mean Platelet Volume 6.4 FL (6.5-10.1) L Neutrophils (%) (Auto) 69.8 % (45.0-75.0) Lymphocytes (%) (Auto) 19.8 % (20.0-45.0) L Monocytes (%) (Auto) 8.3 % (1.0-10.0) Eosinophils (%) (Auto) 0.0 % (0.0-3.0) Basophils (%) (Auto) 2.2 % (0.0-2.0) H Sodium Level 132 MMOL/L (136-145) L Potassium Level 4.8 MMOL/L (3.5-5.1) Chloride Level 93 MMOL/L (98-107) L Carbon Dioxide Level 29 MMOL/L (21-32) Anion Gap 10 mmol/L (5-15) Blood Urea Nitrogen 74 mg/dL (7-18) H Creatinine 7.3 MG/DL (0.55-1.30) H Estimat Glomerular Filtration Rate 7.5 mL/min (>60) Glucose Level 138 MG/DL (74-106) H Calcium Level 9.2 MG/DL (8.5-10.1) Phosphorus Level 4.2 MG/DL (2.5-4.9) Magnesium Level 2.6 MG/DL (1.8-2.4) H Total Bilirubin 0.3 MG/DL (0.2-1.0) Aspartate Amino Transf (AST/SGOT) 12 U/L (15-37) L Alanine Aminotransferase (ALT/SGPT) 12 U/L (12-78) Alkaline Phosphatase 128 U/L (46-116) H Ammonia 21 umol/L (11-32) C-Reactive Protein, Quantitative 9.8 mg/dL (0.00-0.90) H Pro-B-Type Natriuretic Peptide > 70958 pg/mL (0-125) H Total Protein 6.6 G/DL (6.4-8.2) Albumin 2.1 G/DL (3.4-5.0) L Globulin 4.5 g/dL Albumin/Globulin Ratio 0.5 (1.0-2.7) L Objective HEAD AND NECK: No JVD.Tracheostomy intact LUNGS: Coarse rhonchi. CARDIOVASCULAR: Regular S1 and S2 with no gallop. Sternotomy is intact Pacemaker in the right subclavian ABDOMEN: Soft.PEG in place EXTREMITIES: 1+ pitting edema Shivam Sharpe MD Dec 05, 2018 14:09
--- NOTE | 2018-12-05 15:23 | Infectious Diseases Prog Note ---
Assessment/Plan Problems: (1) Thrush, oral Assessment & Plan: continue local nystatin , S/P micafungin for three weeks empirically (2) HCV antibody positive Assessment & Plan: no evidence of active infection, with undetectable viral load , suspect due to previous infection , cleared, S/P liver transplant . (3) Foot ulcer Assessment & Plan: in diabetic patient , with MRSA , S/P vancomycin treatment with HD for two weeks , pending vascular eval and possible surgical debridement. bone scan ruled out osteomyelitis of the heel . 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 now improving, pulmonary is following (8) Pleural effusion Assessment & Plan: recurrent on the right, with lung collapse , S/P thoracentesis X2 with removal of 1.5 cc of clear fluids. PREVIOUS culture were negative with negative cytology Subjective Constitutional: Reports: no symptoms HEENT: Reports: no symptoms Respiratory: Reports: no symptoms Breasts: Reports: no symptoms Cardiovascular: Reports: no symptoms Gastrointestinal/Abdominal: Reports: no symptoms Genitourinary: Reports: no symptoms Neurologic: Reports: no symptoms Psychiatric: Reports: no symptoms Skin: Reports: no symptoms Endocrine: Reports: no symptoms Hematologic: Reports: no symptoms Musculoskeletal: Reports: no symptoms Allergies: Coded Allergies: CEPHALEXIN (Unverified Allergy, Unknown, 02/24/14) SULFAMETHOXAZOLE (Unverified Allergy, Unknown, 02/24/14) TRIMETHOPRIM (Unverified Allergy, Unknown, 02/24/14) Subjective he was comfortable, has no facial swelling and mild tongue swelling , awake and responsive, no fever or chills, no significant secretions , no SOB . has less thrush on his tongue Objective Vital Signs Last 24 Hour Vital Signs Date Time Temp Pulse Resp B/P (MAP) Pulse Ox O2 Delivery O2 Flow Rate FiO2 12/05/18 14:52 76 21 40 12/05/18 13:05 78 21 40 12/05/18 12:00 40 12/05/18 12:00 97.6 70 20 109/55 (73) 100 12/05/18 12:00 Mechanical Ventilator 12/05/18 11:34 70 12/05/18 11:27 99 12/05/18 11:18 70 23 40 12/05/18 09:47 65 18 40 12/05/18 08:11 73 142/67 12/05/18 08:00 98.0 73 22 142/67 (92) 100 12/05/18 08:00 40 12/05/18 08:00 Mechanical Ventilator 12/05/18 07:40 73 12/05/18 07:02 75 18 40 12/05/18 07:02 99 Mechanical Ventilator 40 12/05/18 07:02 Mechanical Ventilator 40 12/05/18 04:31 70 24 40 12/05/18 04:00 97.0 73 20 152/84 (106) 100 12/05/18 04:00 Mechanical Ventilator 12/05/18 04:00 40 12/05/18 03:38 74 12/05/18 03:08 75 23 40 12/05/18 00:56 71 24 40 12/05/18 00:00 Mechanical Ventilator 12/05/18 00:00 97.7 77 19 112/96 (101) 100 12/05/18 00:00 77 12/04/18 22:54 74 22 40 12/04/18 21:27 75 21 40 12/04/18 21:00 75 138/84 12/04/18 20:00 Mechanical Ventilator 12/04/18 20:00 40 12/04/18 20:00 75 12/04/18 20:00 97.7 75 19 138/84 (102) 100 12/04/18 18:56 70 22 40 12/04/18 18:56 99 Mechanical Ventilator 40 12/04/18 18:56 Mechanical Ventilator 40 12/04/18 17:21 71 20 40 12/04/18 16:00 70 12/04/18 16:00 Mechanical Ventilator 12/04/18 16:00 40 12/04/18 16:00 98.4 19 120/75 (90) 100 Height (Feet): 5 Height (Inches): 5.00 Weight (Pounds): 212 General Appearance: WD/WN, no acute distress HEENT: normocephalic, atraumatic, anicteric, mucous membranes moist, PERRL, EOMI, pharynx normal, supple, no JVD, status post trach, thrush Respiratory/Chest: chest wall non-tender, lungs clear, normal breath sounds, no respiratory distress, no accessory muscle use Cardiovascular: normal peripheral pulses, normal rate, regular rhythm, no gallop/murmur, no JVD Abdomen: normal bowel sounds, soft, non tender, no organomegaly, non distended , no mass, no scars Genitourinary: normal external genitalia Extremities: no cyanosis, no clubbing Skin: no rash, no lesions, ulcers 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: 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 normal, alert, responsive Lymphatic: no neck adenopathy, no groin adenopathy Musculoskeletal: normal muscle bulk, no effusion Laboratory Tests Test 12/04/18 17:00 White Blood Count 7.0 K/UL (4.8-10.8) Red Blood Count 4.49 M/UL (4.70-6.10) L Hemoglobin 10.9 G/DL (14.2-18.0) L Hematocrit 35.6 % (42.0-52.0) L Mean Corpuscular Volume 79 FL (80-99) L Mean Corpuscular Hemoglobin 24.3 PG (27.0-31.0) L Mean Corpuscular Hemoglobin Concent 30.6 G/DL (32.0-36.0) L Red Cell Distribution Width 16.3 % (11.6-14.8) H Platelet Count 181 K/UL (150-450) Mean Platelet Volume 6.4 FL (6.5-10.1) L Neutrophils (%) (Auto) 69.8 % (45.0-75.0) Lymphocytes (%) (Auto) 19.8 % (20.0-45.0) L Monocytes (%) (Auto) 8.3 % (1.0-10.0) Eosinophils (%) (Auto) 0.0 % (0.0-3.0) Basophils (%) (Auto) 2.2 % (0.0-2.0) H Sodium Level 132 MMOL/L (136-145) L Potassium Level 4.8 MMOL/L (3.5-5.1) Chloride Level 93 MMOL/L (98-107) L Carbon Dioxide Level 29 MMOL/L (21-32) Anion Gap 10 mmol/L (5-15) Blood Urea Nitrogen 74 mg/dL (7-18) H Creatinine 7.3 MG/DL (0.55-1.30) H Estimat Glomerular Filtration Rate 7.5 mL/min (>60) Glucose Level 138 MG/DL (74-106) H Calcium Level 9.2 MG/DL (8.5-10.1) Phosphorus Level 4.2 MG/DL (2.5-4.9) Magnesium Level 2.6 MG/DL (1.8-2.4) H Total Bilirubin 0.3 MG/DL (0.2-1.0) Aspartate Amino Transf (AST/SGOT) 12 U/L (15-37) L Alanine Aminotransferase (ALT/SGPT) 12 U/L (12-78) Alkaline Phosphatase 128 U/L (46-116) H Ammonia 21 umol/L (11-32) C-Reactive Protein, Quantitative 9.8 mg/dL (0.00-0.90) H Pro-B-Type Natriuretic Peptide > 73699 pg/mL (0-125) H Total Protein 6.6 G/DL (6.4-8.2) Albumin 2.1 G/DL (3.4-5.0) L Globulin 4.5 g/dL Albumin/Globulin Ratio 0.5 (1.0-2.7) L Current Medications Medications (Trade) Dose Ordered Sig/Aleks Route PRN Reason Start Time Stop Time Status Last Admin Dose Admin Acetaminophen (Tylenol) 650 mg Q4H PRN NG Mild Pain/Temp > 100.5 11/12/18 19:00 12/12/18 18:47 11/28/18 05:31 Acetaminophen (Tylenol) 650 mg Q8H GT 11/28/18 13:15 12/28/18 13:14 12/05/18 13:15 Aspirin (ASA) 81 mg DAILY GT 11/20/18 09:00 12/20/18 08:59 12/05/18 08:11 Atorvastatin Calcium (Lipitor) 10 mg BEDTIME NG 12/01/18 21:00 12/21/18 20:59 12/04/18 21:00 Carvedilol (Coreg) 3.125 mg EVERY 12 HOURS PEG 12/04/18 21:00 01/03/19 20:59 12/05/18 08:11 Dextrose (Dextrose 50%) 25 ml Q30M PRN IV Hypoglycemia 12/01/18 19:30 12/31/18 19:29 Dextrose (Dextrose 50%) 50 ml Q30M PRN IV Hypoglycemia 12/01/18 19:30 12/31/18 19:29 Docusate Sodium (Colace) 100 mg EVERY 8 HOURS PRN GT constipation 11/24/18 18:51 12/20/18 18:50 Hydralazine HCl (Apresoline) 10 mg Q6H PRN GT For High Blood Pressure 12/03/18 16:45 01/02/19 16:44 Insulin Aspart (NovoLOG) EVERY 6 HOURS SUBQ 12/02/18 00:00 12/31/18 20:59 12/05/18 05:36 Lactulose (Cephulac) 20 gm THREE TIMES A DAY PRN GT Constipation 11/24/18 18:51 12/23/18 18:50 Lansoprazole (Prevacid) 30 mg BID GT 11/20/18 09:00 12/20/18 08:59 12/05/18 08:11 Nicotine (Nicoderm) 1 patch Q24H TDERMAL 12/01/18 22:15 12/21/18 22:14 12/04/18 21:49 Nystatin (Nystatin) 5 ml TID GT 12/05/18 13:00 12/06/18 17:59 12/05/18 13:15 Olanzapine (ZyPREXA) 2.5 mg BEDTIME GT 12/05/18 21:00 12/13/18 20:59 Olanzapine (ZyPREXA) 2.5 mg Q6H PRN ORAL agitation 11/15/18 23:00 12/15/18 22:59 Polyethylene Glycol (Miralax) 17 gm BEDTIME GT 12/05/18 21:00 12/23/18 20:59 Polyethylene Glycol (Miralax) 17 gm DAILYPRN PRN NG Constipation 11/12/18 19:00 12/11/18 15:29 11/13/18 05:30 Sevelamer Carbonate (Renvela) 800 mg Q8HR GT 11/20/18 14:00 12/20/18 13:59 12/05/18 13:14 Tacrolimus (Prograf) 2 mg MoWeFr@0000,1200 ORAL 12/07/18 00:00 12/21/18 00:00 Tacrolimus (Prograf) 2 mg SuTuThSa@0900,2100 ORAL 12/05/18 21:00 01/04/19 20:59 Tramadol HCl (Ultram) 50 mg Q4H PRN GT Moderate Pain (Pain Scale 4-6) 12/04/18 16:15 12/11/18 16:14 12/05/18 10:47 Francois Landis M.D. Dec 05, 2018 15:23
--- NOTE | 2018-12-05 15:34 | Cardiology Report ---
APPROVED REPORT EKG Measurement Heart [id number] Abnormal ECG Dual-Chamber Pacemaker
[2018-12-05] MEDS ORDERED: Isovue-370 150ml vial INJ PRN (15:45)
--- NOTE | 2018-12-05 15:56 | Pulmonology Progress Note ---
Assessment/Plan Assessment/Plan 1. Resp failure, hypercapneic 2. End-stage renal disease, on dialysis, status post multiple upper extremity vascular procedures. 3. Coronary artery bypass surgery. 4. Diabetes. 5. Dysphonia, tongue swelling; s/p trach PLAN: weaning as tolerated nebs wound care tolerates feeds nebs and prn suction CT of head LT[facility] when bed available Subjective Allergies: Coded Allergies: CEPHALEXIN (Unverified Allergy, Unknown, 02/24/14) SULFAMETHOXAZOLE (Unverified Allergy, Unknown, 02/24/14) TRIMETHOPRIM (Unverified Allergy, Unknown, 02/24/14) Subjective awake minimal secretions on vent no cp nv or bleeding not getting oob positive uop son states pt unable to write Objective Last 24 Hour Vital Signs Date Time Temp Pulse Resp B/P (MAP) Pulse Ox O2 Delivery O2 Flow Rate FiO2 12/05/18 14:52 76 21 40 12/05/18 13:05 78 21 40 12/05/18 12:00 40 12/05/18 12:00 97.6 70 20 109/55 (73) 100 12/05/18 12:00 Mechanical Ventilator 12/05/18 11:34 70 12/05/18 11:27 99 12/05/18 11:18 70 23 40 12/05/18 09:47 65 18 40 12/05/18 08:11 73 142/67 12/05/18 08:00 98.0 73 22 142/67 (92) 100 12/05/18 08:00 40 12/05/18 08:00 Mechanical Ventilator 12/05/18 07:40 73 12/05/18 07:02 75 18 40 12/05/18 07:02 99 Mechanical Ventilator 40 12/05/18 07:02 Mechanical Ventilator 40 12/05/18 04:31 70 24 40 12/05/18 04:00 97.0 73 20 152/84 (106) 100 12/05/18 04:00 Mechanical Ventilator 12/05/18 04:00 40 12/05/18 03:38 74 12/05/18 03:08 75 23 40 12/05/18 00:56 71 24 40 12/05/18 00:00 Mechanical Ventilator 12/05/18 00:00 97.7 77 19 112/96 (101) 100 12/05/18 00:00 77 12/04/18 22:54 74 22 40 12/04/18 21:27 75 21 40 12/04/18 21:00 75 138/84 12/04/18 20:00 Mechanical Ventilator 12/04/18 20:00 40 12/04/18 20:00 75 12/04/18 20:00 97.7 75 19 138/84 (102) 100 12/04/18 18:56 70 22 40 12/04/18 18:56 99 Mechanical Ventilator 40 12/04/18 18:56 Mechanical Ventilator 40 12/04/18 17:21 71 20 40 12/04/18 16:00 70 12/04/18 16:00 Mechanical Ventilator 12/04/18 16:00 40 12/04/18 16:00 98.4 19 120/75 (90) 100 Intake and Output 12/04/18 12/05/18 19:00 07:00 Intake Total 640 ml 640 ml Balance 640 ml 640 ml Free Water 100 ml Tube Feeding 540 ml 540 ml Other 100 ml # Bowel Movements 1 3 General Appearance: WD/WN HEENT: status post trach Respiratory/Chest: normal breath sounds Cardiovascular: normal rate, regular rhythm Abdomen: soft, non tender, no organomegaly Extremities: no clubbing Skin: no rash 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: alert, responsive Laboratory Tests 12/04/18 17:00: White Blood Count 7.0, Red Blood Count 4.49L, Hemoglobin 10.9L, Hematocrit 35.6L , Mean Corpuscular Volume 79L, Mean Corpuscular Hemoglobin 24.3L, Mean Corpuscular Hemoglobin Concent 30.6L, Red Cell Distribution Width 16.3H, Platelet Count 181, Mean Platelet Volume 6.4L, Neutrophils (%) (Auto) 69.8, Lymphocytes (%) (Auto) 19.8L, Monocytes (%) (Auto) 8.3, Eosinophils (%) (Auto) 0.0, Basophils (%) (Auto) 2.2H, Sodium Level 132L, Potassium Level 4.8, Chloride Level 93L, Carbon Dioxide Level 29, Anion Gap 10, Blood Urea Nitrogen 74H, Creatinine 7.3H, Estimat Glomerular Filtration Rate 7.5, Glucose Level 138H , Calcium Level 9.2, Phosphorus Level 4.2, Magnesium Level 2.6H, Total Bilirubin 0.3, Aspartate Amino Transf (AST/SGOT) 12L, Alanine Aminotransferase ( ALT/SGPT) 12, Alkaline Phosphatase 128H, Ammonia 21, C-Reactive Protein, Quantitative 9.8H, Pro-B-Type Natriuretic Peptide > 05641C, Total Protein 6.6, Albumin 2.1L, Globulin 4.5, Albumin/Globulin Ratio 0.5L Current Medications Medications (Trade) Dose Ordered Sig/Aleks Route PRN Reason Start Time Stop Time Status Last Admin Dose Admin Acetaminophen (Tylenol) 650 mg Q4H PRN NG Mild Pain/Temp > 100.5 11/12/18 19:00 12/12/18 18:47 11/28/18 05:31 Acetaminophen (Tylenol) 650 mg Q8H GT 11/28/18 13:15 12/28/18 13:14 12/05/18 13:15 Aspirin (ASA) 81 mg DAILY GT 11/20/18 09:00 12/20/18 08:59 12/05/18 08:11 Atorvastatin Calcium (Lipitor) 10 mg BEDTIME NG 12/01/18 21:00 12/21/18 20:59 12/04/18 21:00 Carvedilol (Coreg) 3.125 mg EVERY 12 HOURS PEG 12/04/18 21:00 01/03/19 20:59 12/05/18 08:11 Dextrose (Dextrose 50%) 25 ml Q30M PRN IV Hypoglycemia 12/01/18 19:30 12/31/18 19:29 Dextrose (Dextrose 50%) 50 ml Q30M PRN IV Hypoglycemia 12/01/18 19:30 12/31/18 19:29 Docusate Sodium (Colace) 100 mg EVERY 8 HOURS PRN GT constipation 11/24/18 18:51 12/20/18 18:50 Hydralazine HCl (Apresoline) 10 mg Q6H PRN GT For High Blood Pressure 12/03/18 16:45 01/02/19 16:44 Insulin Aspart (NovoLOG) EVERY 6 HOURS SUBQ 12/02/18 00:00 12/31/18 20:59 12/05/18 05:36 Lactulose (Cephulac) 20 gm THREE TIMES A DAY PRN GT Constipation 11/24/18 18:51 12/23/18 18:50 Lansoprazole (Prevacid) 30 mg BID GT 11/20/18 09:00 12/20/18 08:59 12/05/18 08:11 Nicotine (Nicoderm) 1 patch Q24H TDERMAL 12/01/18 22:15 12/21/18 22:14 12/04/18 21:49 Nystatin (Nystatin) 5 ml TID GT 12/05/18 13:00 12/06/18 17:59 12/05/18 13:15 Olanzapine (ZyPREXA) 2.5 mg BEDTIME GT 12/05/18 21:00 12/13/18 20:59 Olanzapine (ZyPREXA) 2.5 mg Q6H PRN ORAL agitation 11/15/18 23:00 12/15/18 22:59 Polyethylene Glycol (Miralax) 17 gm BEDTIME GT 12/05/18 21:00 12/23/18 20:59 Polyethylene Glycol (Miralax) 17 gm DAILYPRN PRN NG Constipation 11/12/18 19:00 12/11/18 15:29 11/13/18 05:30 Sevelamer Carbonate (Renvela) 800 mg Q8HR GT 11/20/18 14:00 12/20/18 13:59 12/05/18 13:14 Tacrolimus (Prograf) 2 mg MoWeFr@0000,1200 ORAL 12/07/18 00:00 12/21/18 00:00 Tacrolimus (Prograf) 2 mg SuTuThSa@0900,2100 ORAL 12/05/18 21:00 01/04/19 20:59 Tramadol HCl (Ultram) 50 mg Q4H PRN GT Moderate Pain (Pain Scale 4-6) 12/04/18 16:15 12/11/18 16:14 12/05/18 15:49 Christina Perez DO Dec 05, 2018 15:56
[2018-12-05 16:00] VITALS: BP 176/66
[2018-12-05] MEDS ORDERED: Isovue-300 100ml vial INJ PRN (17:15)
[2018-12-05] MEDS: HydrALAZINE 10mg Tab GT PRN (17:17)
--- NOTE | 2018-12-05 18:26 | Nephrology Progress Note ---
Assessment/Plan Problem List: (1) ESRD (end stage renal disease) on dialysis (2) Foot ulcer (3) CHF (congestive heart failure) (4) Pacemaker (5) Acute respiratory failure Assessment: with Co2 retention Assessment ESRD with high K and SOB on admit Foot ulcer, likely infected High Troponin likely NSTMI Pacer , Pleural effusion s/p CABGS s/p Liver transplant Plan Tylenol RTC pain, and tramadol as needed Now has tracheostomy and PEG Adjust BP meds HD next Antibiotics by ID start tube feeding / hasPEG per cardio and ID Podiatry and Vascular surgical fu PRN tramadol for pain ? DC planning? ALSO COVERING MEDCINE FOR DR BERG Subjective ROS Limited/Unobtainable: No Objective Objective Last 24 Hour Vital Signs Date Time Temp Pulse Resp B/P (MAP) Pulse Ox O2 Delivery O2 Flow Rate FiO2 12/05/18 17:17 176/66 12/05/18 17:10 73 19 40 12/05/18 16:00 40 12/05/18 16:00 75 12/05/18 16:00 Mechanical Ventilator 12/05/18 16:00 97.6 79 22 176/66 (102) 100 12/05/18 14:52 76 21 40 12/05/18 13:05 78 21 40 12/05/18 12:00 40 12/05/18 12:00 97.6 70 20 109/55 (73) 100 12/05/18 12:00 Mechanical Ventilator 12/05/18 11:34 70 12/05/18 11:27 99 12/05/18 11:18 70 23 40 12/05/18 09:47 65 18 40 12/05/18 08:11 73 142/67 12/05/18 08:00 98.0 73 22 142/67 (92) 100 12/05/18 08:00 40 12/05/18 08:00 Mechanical Ventilator 12/05/18 07:40 73 12/05/18 07:02 75 18 40 12/05/18 07:02 99 Mechanical Ventilator 40 12/05/18 07:02 Mechanical Ventilator 40 12/05/18 04:31 70 24 40 12/05/18 04:00 97.0 73 20 152/84 (106) 100 12/05/18 04:00 Mechanical Ventilator 12/05/18 04:00 40 12/05/18 03:38 74 12/05/18 03:08 75 23 40 12/05/18 00:56 71 24 40 12/05/18 00:00 Mechanical Ventilator 12/05/18 00:00 97.7 77 19 112/96 (101) 100 12/05/18 00:00 77 12/04/18 22:54 74 22 40 12/04/18 21:27 75 21 40 12/04/18 21:00 75 138/84 12/04/18 20:00 Mechanical Ventilator 12/04/18 20:00 40 12/04/18 20:00 75 12/04/18 20:00 97.7 75 19 138/84 (102) 100 12/04/18 18:56 70 22 40 12/04/18 18:56 99 Mechanical Ventilator 40 12/04/18 18:56 Mechanical Ventilator 40 Intake and Output 12/04/18 12/05/18 19:00 07:00 Intake Total 640 ml 640 ml Balance 640 ml 640 ml Free Water 100 ml Tube Feeding 540 ml 540 ml Other 100 ml # Bowel Movements 1 3 Height (Feet): 5 Height (Inches): 5.00 Weight (Pounds): 212 General Appearance: no apparent distress EENT: other - trach Cardiovascular: normal rate Respiratory/Chest: decreased breath sounds Abdomen: distended Objective no other change Nakul Stevens MD Dec 05, 2018 18:26
[2018-12-05 20:30] VITALS: BP 170/76
[2018-12-05] MEDS: Miralax 17gm pkt GT SCH (21:00)
[2018-12-05] MEDS: OLANZapine 2.5mg tab GT SCH (21:39)
[2018-12-05] MEDS: Carvedilol 6.25mg Tab PEG SCH (21:41)
--- NOTE | 2018-12-05 23:32 | Psych Consult Progress Note ---
Psychiatry Progress Note Psychiatry Progress Note Medications Current Medications Medications (Trade) Dose Ordered Sig/Aleks Route PRN Reason Start Time Stop Time Status Last Admin Dose Admin Acetaminophen (Tylenol) 650 mg Q4H PRN NG Mild Pain/Temp > 100.5 11/12/18 19:00 12/12/18 18:47 11/28/18 05:31 Acetaminophen (Tylenol) 650 mg Q8H GT 11/28/18 13:15 12/28/18 13:14 12/05/18 21:42 Aspirin (ASA) 81 mg DAILY GT 11/20/18 09:00 12/20/18 08:59 12/05/18 08:11 Atorvastatin Calcium (Lipitor) 10 mg BEDTIME NG 12/01/18 21:00 12/21/18 20:59 12/05/18 21:40 Carvedilol (Coreg) 6.25 mg EVERY 12 HOURS PEG 12/05/18 21:00 01/03/19 20:59 12/05/18 21:41 Dextrose (Dextrose 50%) 25 ml Q30M PRN IV Hypoglycemia 12/01/18 19:30 12/31/18 19:29 Dextrose (Dextrose 50%) 50 ml Q30M PRN IV Hypoglycemia 12/01/18 19:30 12/31/18 19:29 Docusate Sodium (Colace) 100 mg EVERY 8 HOURS PRN GT constipation 11/24/18 18:51 12/20/18 18:50 Hydralazine HCl (Apresoline) 10 mg Q6H PRN GT For High Blood Pressure 12/03/18 16:45 01/02/19 16:44 12/05/18 17:17 Insulin Aspart (NovoLOG) EVERY 6 HOURS SUBQ 12/02/18 00:00 12/31/18 20:59 12/05/18 05:36 Iopamidol (Isovue-300 100ml) 100 ml NOW PRN INJ Radiology Procedure 12/05/18 17:15 12/07/18 17:05 Lactulose (Cephulac) 20 gm THREE TIMES A DAY PRN GT Constipation 11/24/18 18:51 12/23/18 18:50 Lansoprazole (Prevacid) 30 mg BID GT 11/20/18 09:00 12/20/18 08:59 12/05/18 17:17 Nicotine (Nicoderm) 1 patch Q24H TDERMAL 12/01/18 22:15 12/21/18 22:14 12/05/18 21:42 Nystatin (Nystatin) 5 ml TID GT 12/05/18 13:00 12/06/18 17:59 12/05/18 17:17 Olanzapine (ZyPREXA) 2.5 mg BEDTIME GT 12/05/18 21:00 12/13/18 20:59 12/05/18 21:39 Olanzapine (ZyPREXA) 2.5 mg Q6H PRN ORAL agitation 11/15/18 23:00 12/15/18 22:59 Polyethylene Glycol (Miralax) 17 gm BEDTIME GT 12/05/18 21:00 12/23/18 20:59 Polyethylene Glycol (Miralax) 17 gm DAILYPRN PRN NG Constipation 11/12/18 19:00 12/11/18 15:29 11/13/18 05:30 Sevelamer Carbonate (Renvela) 800 mg Q8HR GT 11/20/18 14:00 12/20/18 13:59 12/05/18 21:42 Tacrolimus (Prograf) 2 mg MoWeFr@0000,1200 ORAL 12/07/18 00:00 12/21/18 00:00 Tacrolimus (Prograf) 2 mg SuTuThSa@0900,2100 ORAL 12/05/18 21:00 01/04/19 20:59 12/05/18 21:46 Tramadol HCl (Ultram) 50 mg Q4H PRN GT Moderate Pain (Pain Scale 4-6) 12/04/18 16:15 12/11/18 16:14 12/05/18 15:49 Problems: (1) Encephalopathy acute Status: Chronic Neurological/Psychiatric: Reports: anxiety Allergies: Coded Allergies: CEPHALEXIN (Unverified Allergy, Unknown, 02/24/14) SULFAMETHOXAZOLE (Unverified Allergy, Unknown, 02/24/14) TRIMETHOPRIM (Unverified Allergy, Unknown, 02/24/14) Objective Data Height (Feet): 5 Height (Inches): 5.00 Weight (Pounds): 212 General Appearance: WD/WN, no apparent distress, alert Appearance: disheveled Behavior Mannerisms: good eye contact Mental Status Exam - Affect: constricted Mental Status Exam - Mood: anxious Assessment/Plan Problem List: (1) Encephalopathy acute ICD Codes: G93.40 - Encephalopathy, unspecified SNOMED: [id number], [id number] Status: stable, progressing Assessment: Zyprexa 2.5mg po qhs haldol IM prn the pt lacks capacity ativan 1mg gt prior to weaning off from vent Jeffrey Lala MD Dec 05, 2018 23:32
[2018-12-06] VITALS (7 sets, daily range): BP systolic 85–153; BP diastolic 47–99
[2018-12-06] MEDS: traMADol 50mg tab GT PRN ×3 (00:22→22:37)
[2018-12-06] MEDS: Acetaminophen 650mg/20.3ml GT SCH ×3 (05:34→21:12)
[2018-12-06] MEDS: Renvela 800mg Pkt GT SCH ×3 (05:34→21:37)
[2018-12-06] MEDS: NovoLOG Insulin Flexpen SUBQ SCH ×4 (05:35→23:47)
[2018-12-06] MEDS: Aspirin Baby 81mg GT SCH (08:52)
[2018-12-06] MEDS: Nystatin Susp 500,000 units/5ml GT SCH ×2 (08:52→13:00)
[2018-12-06] MEDS: Carvedilol 6.25mg Tab PEG SCH ×2 (08:58→21:00)
--- NOTE | 2018-12-06 10:47 | Nephrology Progress Note ---
Assessment/Plan Problem List: (1) ESRD (end stage renal disease) on dialysis (2) Foot ulcer (3) CHF (congestive heart failure) Assessment: Ej Fx 20 % (4) Pacemaker (5) Acute respiratory failure Assessment: with Co2 retention Assessment ESRD with high K and SOB on admit Foot ulcer, likely infected High Troponin likely NSTMI Pacer , Pleural effusion s/p CABGS s/p Liver transplant Plan lab pending Tylenol RTC pain, and tramadol as needed Now has tracheostomy and PEG Adjust BP meds HD next Antibiotics by ID start tube feeding / hasPEG per cardio and ID Podiatry and Vascular surgical fu PRN tramadol for pain ? DC planning? ALSO COVERING MEDCINE FOR DR BERG Subjective ROS Limited/Unobtainable: No Constitutional: Reports: malaise Objective Objective Last 24 Hour Vital Signs Date Time Temp Pulse Resp B/P (MAP) Pulse Ox O2 Delivery O2 Flow Rate FiO2 12/06/18 08:58 69 85/47 12/06/18 08:00 97.7 69 20 85/47 (60) 90 12/06/18 08:00 Mechanical Ventilator 12/06/18 08:00 40 12/06/18 07:51 71 12/06/18 07:08 100 Mechanical Ventilator 40 12/06/18 07:08 82 24 40 12/06/18 07:08 Mechanical Ventilator 40 12/06/18 05:29 73 23 40 12/06/18 04:00 70 12/06/18 04:00 40 12/06/18 04:00 96.6 72 23 133/71 (91) 99 12/06/18 04:00 72 12/06/18 04:00 Mechanical Ventilator 12/06/18 03:15 76 31 40 12/06/18 01:00 77 29 40 12/06/18 00:00 96.8 72 23 153/81 (105) 99 12/06/18 00:00 Mechanical Ventilator 12/06/18 00:00 40 12/06/18 00:00 70 12/05/18 22:45 75 26 40 12/05/18 21:41 74 170/76 12/05/18 21:20 77 24 40 12/05/18 20:30 170/76 (107) 12/05/18 20:00 40 12/05/18 20:00 Mechanical Ventilator 12/05/18 20:00 76 12/05/18 20:00 97.5 75 23 99 12/05/18 18:56 99 Mechanical Ventilator 40 12/05/18 18:56 72 21 40 12/05/18 18:56 Mechanical Ventilator 40 12/05/18 17:17 176/66 12/05/18 17:10 73 19 40 12/05/18 16:00 40 12/05/18 16:00 75 12/05/18 16:00 Mechanical Ventilator 12/05/18 16:00 97.6 79 22 176/66 (102) 100 12/05/18 14:52 76 21 40 12/05/18 13:05 78 21 40 12/05/18 12:00 40 12/05/18 12:00 97.6 70 20 109/55 (73) 100 12/05/18 12:00 Mechanical Ventilator 12/05/18 11:34 70 12/05/18 11:27 99 12/05/18 11:18 70 23 40 Intake and Output 12/05/18 12/06/18 18:59 06:59 Intake Total 840 ml 780 ml Balance 840 ml 780 ml Tube Feeding 540 ml 540 ml Other 300 ml 240 ml # Bowel Movements 3 6 Height (Feet): 5 Height (Inches): 5.00 Weight (Pounds): 215 General Appearance: other - awake Cardiovascular: normal rate Respiratory/Chest: decreased breath sounds Abdomen: distended Objective no other change Nakul Stevens MD Dec 06, 2018 10:47
[2018-12-06 11:14] LABS: BASOPHILS % (AUTO) 1.4 % (0.0-2.0); HEMATOCRIT 34.4 % (42.0-52.0); HEMOGLOBIN 10.8 G/DL (14.2-18.0); LYMPHOCYTES % (AUTO) 14.3 % (20.0-45.0); MEAN CORPUSCULAR VOLUME 80 FL (80-99); MONOCYTES % (AUTO) 7.1 % (1.0-10.0); NEUTROPHILS % (AUTO) 77.1 % (45.0-75.0); PLATELET COUNT 172 K/UL (150-450); RED CELL DISTRIBUTION WIDTH 16.9 % (11.6-14.8); WHITE BLOOD COUNT 9.2 K/UL (4.8-10.8)
[2018-12-06 11:28] LABS: AMMONIA 13 umol/L (11-32)
[2018-12-06 11:37] LABS: ALANINE AMINOTRANSFERASE 10 U/L (12-78); ALBUMIN 2.1 G/DL (3.4-5.0); ALBUMIN/GLOBULIN RATIO 0.5 (1.0-2.7); ALKALINE PHOSPHATASE 131 U/L (46-116); ANION GAP 14 mmol/L (5-15); ASPARTATE AMINO TRANSFERASE 12 U/L (15-37); BILIRUBIN,TOTAL 0.3 MG/DL (0.2-1.0); BLOOD UREA NITROGEN 75 mg/dL (7-18); CALCIUM 9.2 MG/DL (8.5-10.1); CARBON DIOXIDE 26 MMOL/L (21-32); CHLORIDE 90 MMOL/L (98-107); CHOLESTEROL 74 MG/DL (< 200); CREATINE KINASE 27 U/L (26-308); CREATININE 7.4 MG/DL (0.55-1.30); GAMMA GLUTAMYL TRANSPEPTIDASE 23 U/L (5-85); HDL CHOLESTEROL 32 MG/DL (40-60); PHOSPHORUS 4.6 MG/DL (2.5-4.9); POTASSIUM 4.9 MMOL/L (3.5-5.1); SODIUM 130 MMOL/L (136-145); TRIGLYCERIDES 143 MG/DL (30-150)
--- NOTE | 2018-12-06 13:45 | Cardiac Electrophysiology PN ---
Assessment/Plan Assessment/Plan 1. Troponin leak with no chest pain. Due to renal failure. On Coreg 3.125 mg bid, aspirin and Lipitor 2. S/P CABG 3. Nonsustained ventricular tachycardia. Hx of old [place] and CABG. EF 55%. No Syncope 4. Congestive heart failure. On hemodialysis 5. End-stage renal disease, on hemodialysis per Dr. Stevens 6. Status post right sided Medtronic dual chamber pacemaker with Nl Fx. 7. Right foot ulcer. Antibiotic per Dr. Landis. FU by Dr. Huizar 8. History of liver transplant on Prograf 9. Respiratory failure, ? etiology anaphylaxis. S/P Emergency tracheostomy. 10. Pleural effusion. FU Dr. Mendoza 11. Dysphagia, S/P PEG DW RN Subjective Subjective On the vent via tracheostomy.Paced rhythm. Had 9 beats of nonsustained VT yesterday Objective Last 24 Hour Vital Signs Date Time Temp Pulse Resp B/P (MAP) Pulse Ox O2 Delivery O2 Flow Rate FiO2 12/06/18 12:04 40 12/06/18 12:03 Mechanical Ventilator 12/06/18 12:00 97.5 117 20 146/99 (115) 100 12/06/18 11:37 68 12/06/18 11:25 64 20 40 12/06/18 08:58 69 85/47 12/06/18 08:00 97.7 69 20 85/47 (60) 90 12/06/18 08:00 Mechanical Ventilator 12/06/18 08:00 40 12/06/18 07:51 71 12/06/18 07:08 100 Mechanical Ventilator 40 12/06/18 07:08 82 24 40 12/06/18 07:08 Mechanical Ventilator 40 12/06/18 05:29 73 23 40 12/06/18 04:00 70 12/06/18 04:00 40 12/06/18 04:00 96.6 72 23 133/71 (91) 99 12/06/18 04:00 72 12/06/18 04:00 Mechanical Ventilator 12/06/18 03:15 76 31 40 12/06/18 01:00 77 29 40 12/06/18 00:00 96.8 72 23 153/81 (105) 99 12/06/18 00:00 Mechanical Ventilator 12/06/18 00:00 40 12/06/18 00:00 70 12/05/18 22:45 75 26 40 12/05/18 21:41 74 170/76 12/05/18 21:20 77 24 40 12/05/18 20:30 170/76 (107) 12/05/18 20:00 40 12/05/18 20:00 Mechanical Ventilator 12/05/18 20:00 76 12/05/18 20:00 97.5 75 23 99 12/05/18 18:56 99 Mechanical Ventilator 40 12/05/18 18:56 72 21 40 12/05/18 18:56 Mechanical Ventilator 40 12/05/18 17:17 176/66 12/05/18 17:10 73 19 40 12/05/18 16:00 40 12/05/18 16:00 75 12/05/18 16:00 Mechanical Ventilator 12/05/18 16:00 97.6 79 22 176/66 (102) 100 12/05/18 14:52 76 21 40 Intake and Output 12/05/18 12/06/18 19:00 07:00 Intake Total 840 ml 735 ml Balance 840 ml 735 ml Tube Feeding 540 ml 495 ml Other 300 ml 240 ml # Bowel Movements 3 6 Laboratory Tests Test 12/06/18 11:00 White Blood Count 9.2 K/UL (4.8-10.8) Red Blood Count 4.30 M/UL (4.70-6.10) L Hemoglobin 10.8 G/DL (14.2-18.0) L Hematocrit 34.4 % (42.0-52.0) L Mean Corpuscular Volume 80 FL (80-99) Mean Corpuscular Hemoglobin 25.0 PG (27.0-31.0) L Mean Corpuscular Hemoglobin Concent 31.2 G/DL (32.0-36.0) L Red Cell Distribution Width 16.9 % (11.6-14.8) H Platelet Count 172 K/UL (150-450) Mean Platelet Volume 6.8 FL (6.5-10.1) Neutrophils (%) (Auto) 77.1 % (45.0-75.0) H Lymphocytes (%) (Auto) 14.3 % (20.0-45.0) L Monocytes (%) (Auto) 7.1 % (1.0-10.0) Eosinophils (%) (Auto) 0.0 % (0.0-3.0) Basophils (%) (Auto) 1.4 % (0.0-2.0) Sodium Level 130 MMOL/L (136-145) L Potassium Level 4.9 MMOL/L (3.5-5.1) Chloride Level 90 MMOL/L (98-107) L Carbon Dioxide Level 26 MMOL/L (21-32) Anion Gap 14 mmol/L (5-15) Blood Urea Nitrogen 75 mg/dL (7-18) H Creatinine 7.4 MG/DL (0.55-1.30) H Estimat Glomerular Filtration Rate 7.4 mL/min (>60) Glucose Level 156 MG/DL (74-106) H Hemoglobin A1c 6.9 % (4.3-6.0) H Uric Acid 4.6 MG/DL (2.6-7.2) Calcium Level 9.2 MG/DL (8.5-10.1) Phosphorus Level 4.6 MG/DL (2.5-4.9) Magnesium Level 2.4 MG/DL (1.8-2.4) Total Bilirubin 0.3 MG/DL (0.2-1.0) Gamma Glutamyl Transpeptidase 23 U/L (5-85) Aspartate Amino Transf (AST/SGOT) 12 U/L (15-37) L Alanine Aminotransferase (ALT/SGPT) 10 U/L (12-78) L Alkaline Phosphatase 131 U/L (46-116) H Ammonia 13 umol/L (11-32) Total Creatine Kinase 27 U/L (26-308) Troponin I 0.063 ng/mL (0.000-0.056) C-Reactive Protein, Quantitative 9.6 mg/dL (0.00-0.90) H Pro-B-Type Natriuretic Peptide > 74313 pg/mL (0-125) H Total Protein 6.4 G/DL (6.4-8.2) Albumin 2.1 G/DL (3.4-5.0) L Globulin 4.3 g/dL Albumin/Globulin Ratio 0.5 (1.0-2.7) L Triglycerides Level 143 MG/DL (30-150) Cholesterol Level 74 MG/DL (< 200) LDL Cholesterol 23 mg/dL (<100) HDL Cholesterol 32 MG/DL (40-60) L Cholesterol/HDL Ratio 2.3 (3.3-4.4) L Thyroid Stimulating Hormone (TSH) 4.822 uiU/mL (0.358-3.740) Objective HEAD AND NECK: No JVD.Tracheostomy intact LUNGS: Coarse rhonchi. CARDIOVASCULAR: Regular S1 and S2 with no gallop. Sternotomy is intact Pacemaker in the right subclavian ABDOMEN: Soft.PEG in place EXTREMITIES: 1+ pitting edema Shivam Sharpe MD Dec 06, 2018 13:45
[2018-12-06] MEDS ORDERED: Sterile Water Irrig 1000ml IRRIG ONE (15:19)
--- NOTE | 2018-12-06 18:13 | Infectious Diseases Prog Note ---
Assessment/Plan Problems: (1) Thrush, oral Assessment & Plan: continue local nystatin , S/P micafungin for three weeks empirically (2) HCV antibody positive Assessment & Plan: no evidence of active infection, with undetectable viral load , suspect due to previous infection , cleared, S/P liver transplant . (3) Foot ulcer Assessment & Plan: in diabetic patient , with MRSA , S/P vancomycin treatment with HD for two weeks , pending vascular eval and possible surgical debridement. bone scan ruled out osteomyelitis of the heel . follow up with meteorology teacher (4) DM (diabetes mellitus) Assessment & Plan: recommend tight glycemic control to keep blood glucose between 100-140 (5) CHF (congestive heart failure) Assessment & Plan: on HD , renal is following, monitor daily weight (6) Encephalopathy acute Assessment & Plan: suspect metabolic, with high urea level, waxing and waning , now improved (7) Severe tongue swelling Assessment & Plan: improving , s/p tracheostomy to protect his airway since respiratory status worsened . now improving, pulmonary is following (8) Pleural effusion Assessment & Plan: recurrent on the right, with lung collapse , S/P thoracentesis X2 with removal of 1.5 cc of clear fluids. PREVIOUS culture were negative with negative cytology Subjective Constitutional: Reports: no symptoms HEENT: Reports: no symptoms Respiratory: Reports: no symptoms Breasts: Reports: no symptoms Cardiovascular: Reports: no symptoms Gastrointestinal/Abdominal: Reports: no symptoms Genitourinary: Reports: no symptoms Neurologic: Reports: no symptoms Psychiatric: Reports: no symptoms Skin: Reports: no symptoms Endocrine: Reports: no symptoms Hematologic: Reports: no symptoms Musculoskeletal: Reports: no symptoms Allergies: Coded Allergies: CEPHALEXIN (Unverified Allergy, Unknown, 02/24/14) SULFAMETHOXAZOLE (Unverified Allergy, Unknown, 02/24/14) TRIMETHOPRIM (Unverified Allergy, Unknown, 02/24/14) Subjective he was comfortable, has no facial swelling and mild tongue swelling , awake and responsive, no fever or chills, no significant secretions , no SOB . has less thrush on his tongue Objective Vital Signs Last 24 Hour Vital Signs Date Time Temp Pulse Resp B/P (MAP) Pulse Ox O2 Delivery O2 Flow Rate FiO2 12/06/18 17:18 70 22 40 12/06/18 16:00 97.6 65 22 146/71 (96) 100 12/06/18 16:00 65 12/06/18 16:00 40 12/06/18 16:00 Mechanical Ventilator 12/06/18 15:25 98 12/06/18 15:25 68 30 40 12/06/18 12:04 40 12/06/18 12:03 Mechanical Ventilator 12/06/18 12:00 97.5 117 20 146/99 (115) 100 12/06/18 11:37 68 12/06/18 11:25 64 20 40 12/06/18 08:58 69 85/47 12/06/18 08:00 97.7 69 20 85/47 (60) 90 12/06/18 08:00 Mechanical Ventilator 12/06/18 08:00 40 12/06/18 07:51 71 12/06/18 07:08 100 Mechanical Ventilator 40 12/06/18 07:08 82 24 40 12/06/18 07:08 Mechanical Ventilator 40 12/06/18 05:29 73 23 40 12/06/18 04:00 70 12/06/18 04:00 40 12/06/18 04:00 96.6 72 23 133/71 (91) 99 12/06/18 04:00 72 12/06/18 04:00 Mechanical Ventilator 12/06/18 03:15 76 31 40 12/06/18 01:00 77 29 40 12/06/18 00:00 96.8 72 23 153/81 (105) 99 12/06/18 00:00 Mechanical Ventilator 12/06/18 00:00 40 12/06/18 00:00 70 12/05/18 22:45 75 26 40 12/05/18 21:41 74 170/76 12/05/18 21:20 77 24 40 12/05/18 20:30 170/76 (107) 12/05/18 20:00 40 12/05/18 20:00 Mechanical Ventilator 12/05/18 20:00 76 12/05/18 20:00 97.5 75 23 99 12/05/18 18:56 99 Mechanical Ventilator 40 12/05/18 18:56 72 21 40 12/05/18 18:56 Mechanical Ventilator 40 Height (Feet): 5 Height (Inches): 5.00 Weight (Pounds): 215 General Appearance: WD/WN, no acute distress HEENT: normocephalic, atraumatic, anicteric, mucous membranes moist, PERRL, EOMI, pharynx normal, supple, no JVD Respiratory/Chest: chest wall non-tender, no respiratory distress, no accessory muscle use, decreased breath sounds Cardiovascular: normal peripheral pulses, normal rate, regular rhythm, no gallop/murmur, no JVD Abdomen: normal bowel sounds, soft, non tender, no organomegaly, non distended , no mass, no scars Genitourinary: normal external genitalia Extremities: no cyanosis, no clubbing Skin: no rash, no lesions, no ulcers 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: uniform attendant 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 normal, alert, responsive Laboratory Tests Test 12/06/18 11:00 White Blood Count 9.2 K/UL (4.8-10.8) Red Blood Count 4.30 M/UL (4.70-6.10) L Hemoglobin 10.8 G/DL (14.2-18.0) L Hematocrit 34.4 % (42.0-52.0) L Mean Corpuscular Volume 80 FL (80-99) Mean Corpuscular Hemoglobin 25.0 PG (27.0-31.0) L Mean Corpuscular Hemoglobin Concent 31.2 G/DL (32.0-36.0) L Red Cell Distribution Width 16.9 % (11.6-14.8) H Platelet Count 172 K/UL (150-450) Mean Platelet Volume 6.8 FL (6.5-10.1) Neutrophils (%) (Auto) 77.1 % (45.0-75.0) H Lymphocytes (%) (Auto) 14.3 % (20.0-45.0) L Monocytes (%) (Auto) 7.1 % (1.0-10.0) Eosinophils (%) (Auto) 0.0 % (0.0-3.0) Basophils (%) (Auto) 1.4 % (0.0-2.0) Sodium Level 130 MMOL/L (136-145) L Potassium Level 4.9 MMOL/L (3.5-5.1) Chloride Level 90 MMOL/L (98-107) L Carbon Dioxide Level 26 MMOL/L (21-32) Anion Gap 14 mmol/L (5-15) Blood Urea Nitrogen 75 mg/dL (7-18) H Creatinine 7.4 MG/DL (0.55-1.30) H Estimat Glomerular Filtration Rate 7.4 mL/min (>60) Glucose Level 156 MG/DL (74-106) H Hemoglobin A1c 6.9 % (4.3-6.0) H Uric Acid 4.6 MG/DL (2.6-7.2) Calcium Level 9.2 MG/DL (8.5-10.1) Phosphorus Level 4.6 MG/DL (2.5-4.9) Magnesium Level 2.4 MG/DL (1.8-2.4) Total Bilirubin 0.3 MG/DL (0.2-1.0) Gamma Glutamyl Transpeptidase 23 U/L (5-85) Aspartate Amino Transf (AST/SGOT) 12 U/L (15-37) L Alanine Aminotransferase (ALT/SGPT) 10 U/L (12-78) L Alkaline Phosphatase 131 U/L (46-116) H Ammonia 13 umol/L (11-32) Total Creatine Kinase 27 U/L (26-308) Troponin I 0.063 ng/mL (0.000-0.056) C-Reactive Protein, Quantitative 9.6 mg/dL (0.00-0.90) H Pro-B-Type Natriuretic Peptide > 76193 pg/mL (0-125) H Total Protein 6.4 G/DL (6.4-8.2) Albumin 2.1 G/DL (3.4-5.0) L Globulin 4.3 g/dL Albumin/Globulin Ratio 0.5 (1.0-2.7) L Triglycerides Level 143 MG/DL (30-150) Cholesterol Level 74 MG/DL (< 200) LDL Cholesterol 23 mg/dL (<100) HDL Cholesterol 32 MG/DL (40-60) L Cholesterol/HDL Ratio 2.3 (3.3-4.4) L Thyroid Stimulating Hormone (TSH) 4.822 uiU/mL (0.358-3.740) Current Medications Medications (Trade) Dose Ordered Sig/Aleks Route PRN Reason Start Time Stop Time Status Last Admin Dose Admin Acetaminophen (Tylenol) 650 mg Q4H PRN NG Mild Pain/Temp > 100.5 11/12/18 19:00 12/12/18 18:47 11/28/18 05:31 Acetaminophen (Tylenol) 650 mg Q8H GT 11/28/18 13:15 12/28/18 13:14 12/06/18 12:19 Aspirin (ASA) 81 mg DAILY GT 11/20/18 09:00 12/20/18 08:59 12/06/18 08:52 Atorvastatin Calcium (Lipitor) 10 mg BEDTIME NG 12/01/18 21:00 12/21/18 20:59 12/05/18 21:40 Carvedilol (Coreg) 6.25 mg EVERY 12 HOURS PEG 12/06/18 21:00 01/03/19 20:59 Dextrose (Dextrose 50%) 25 ml Q30M PRN IV Hypoglycemia 12/01/18 19:30 12/31/18 19:29 Dextrose (Dextrose 50%) 50 ml Q30M PRN IV Hypoglycemia 12/01/18 19:30 12/31/18 19:29 Docusate Sodium (Colace) 100 mg EVERY 8 HOURS PRN GT constipation 11/24/18 18:51 12/20/18 18:50 Hydralazine HCl (Apresoline) 10 mg Q6H PRN GT For High Blood Pressure 12/03/18 16:45 01/02/19 16:44 12/05/18 17:17 Insulin Aspart (NovoLOG) EVERY 6 HOURS SUBQ 12/02/18 00:00 12/31/18 20:59 12/06/18 18:03 Iopamidol (Isovue-300 100ml) 100 ml NOW PRN INJ Radiology Procedure 12/05/18 17:15 12/07/18 17:05 Lactulose (Cephulac) 20 gm THREE TIMES A DAY PRN GT Constipation 11/24/18 18:51 12/23/18 18:50 Lansoprazole (Prevacid) 30 mg BID GT 11/20/18 09:00 12/20/18 08:59 12/06/18 17:58 Nicotine (Nicoderm) 1 patch Q24H TDERMAL 12/01/18 22:15 12/21/18 22:14 12/05/18 21:42 Olanzapine (ZyPREXA) 2.5 mg BEDTIME GT 12/05/18 21:00 12/13/18 20:59 12/05/18 21:39 Olanzapine (ZyPREXA) 2.5 mg Q6H PRN ORAL agitation 11/15/18 23:00 12/15/18 22:59 12/06/18 00:23 Polyethylene Glycol (Miralax) 17 gm BEDTIME GT 12/05/18 21:00 12/23/18 20:59 Polyethylene Glycol (Miralax) 17 gm DAILYPRN PRN NG Constipation 11/12/18 19:00 12/11/18 15:29 11/13/18 05:30 Sevelamer Carbonate (Renvela) 800 mg Q8HR GT 11/20/18 14:00 12/20/18 13:59 12/06/18 15:29 Tacrolimus (Prograf) 2 mg MoWeFr@0000,1200 ORAL 12/07/18 00:00 12/21/18 00:00 Tacrolimus (Prograf) 2 mg SuTuThSa@0900,2100 ORAL 12/05/18 21:00 01/04/19 20:59 12/06/18 08:58 Tramadol HCl (Ultram) 50 mg Q6H PRN GT Moderate Pain (Pain Scale 4-6) 12/06/18 11:00 12/11/18 16:14 12/06/18 16:25 Francois Landis M.D. Dec 06, 2018 18:13
[2018-12-06] MEDS: Miralax 17gm pkt GT SCH (21:00)
[2018-12-06] MEDS: OLANZapine 2.5mg tab GT SCH (21:12)
--- NOTE | 2018-12-06 21:21 | Psych Consult Progress Note ---
Psychiatry Progress Note Psychiatry Progress Note Medications Current Medications Medications (Trade) Dose Ordered Sig/Aleks Route PRN Reason Start Time Stop Time Status Last Admin Dose Admin Acetaminophen (Tylenol) 650 mg Q4H PRN NG Mild Pain/Temp > 100.5 11/12/18 19:00 12/12/18 18:47 11/28/18 05:31 Acetaminophen (Tylenol) 650 mg Q8H GT 11/28/18 13:15 12/28/18 13:14 12/06/18 21:12 Aspirin (ASA) 81 mg DAILY GT 11/20/18 09:00 12/20/18 08:59 12/06/18 08:52 Atorvastatin Calcium (Lipitor) 10 mg BEDTIME NG 12/01/18 21:00 12/21/18 20:59 12/06/18 21:12 Carvedilol (Coreg) 6.25 mg EVERY 12 HOURS PEG 12/06/18 21:00 01/03/19 20:59 Dextrose (Dextrose 50%) 25 ml Q30M PRN IV Hypoglycemia 12/01/18 19:30 12/31/18 19:29 Dextrose (Dextrose 50%) 50 ml Q30M PRN IV Hypoglycemia 12/01/18 19:30 12/31/18 19:29 Docusate Sodium (Colace) 100 mg EVERY 8 HOURS PRN GT constipation 11/24/18 18:51 12/20/18 18:50 Hydralazine HCl (Apresoline) 10 mg Q6H PRN GT For High Blood Pressure 12/03/18 16:45 01/02/19 16:44 12/05/18 17:17 Insulin Aspart (NovoLOG) EVERY 6 HOURS SUBQ 12/02/18 00:00 12/31/18 20:59 12/06/18 18:03 Iopamidol (Isovue-300 100ml) 100 ml NOW PRN INJ Radiology Procedure 12/05/18 17:15 12/07/18 17:05 Lactulose (Cephulac) 20 gm THREE TIMES A DAY PRN GT Constipation 11/24/18 18:51 12/23/18 18:50 Lansoprazole (Prevacid) 30 mg BID GT 11/20/18 09:00 12/20/18 08:59 12/06/18 17:58 Nicotine (Nicoderm) 1 patch Q24H TDERMAL 12/01/18 22:15 12/21/18 22:14 12/05/18 21:42 Olanzapine (ZyPREXA) 2.5 mg BEDTIME GT 12/05/18 21:00 12/13/18 20:59 12/06/18 21:12 Olanzapine (ZyPREXA) 2.5 mg Q6H PRN ORAL agitation 11/15/18 23:00 12/15/18 22:59 12/06/18 00:23 Polyethylene Glycol (Miralax) 17 gm BEDTIME GT 12/05/18 21:00 12/23/18 20:59 Polyethylene Glycol (Miralax) 17 gm DAILYPRN PRN NG Constipation 11/12/18 19:00 12/11/18 15:29 11/13/18 05:30 Sevelamer Carbonate (Renvela) 800 mg Q8HR GT 11/20/18 14:00 12/20/18 13:59 12/06/18 15:29 Tacrolimus (Prograf) 2 mg MoWeFr@0000,1200 ORAL 12/07/18 00:00 12/21/18 00:00 Tacrolimus (Prograf) 2 mg SuTuThSa@0900,2100 ORAL 12/05/18 21:00 01/04/19 20:59 12/06/18 08:58 Tramadol HCl (Ultram) 50 mg Q6H PRN GT Moderate Pain (Pain Scale 4-6) 12/06/18 11:00 12/11/18 16:14 12/06/18 16:25 Problems: (1) Encephalopathy acute Status: Chronic Neurological/Psychiatric: Reports: anxiety, depressed Allergies: Coded Allergies: CEPHALEXIN (Unverified Allergy, Unknown, 02/24/14) SULFAMETHOXAZOLE (Unverified Allergy, Unknown, 02/24/14) TRIMETHOPRIM (Unverified Allergy, Unknown, 02/24/14) Objective Data Height (Feet): 5 Height (Inches): 5.00 Weight (Pounds): 215 General Appearance: WD/WN, no apparent distress, alert Behavior Mannerisms: good eye contact Mental Status Exam - Affect: blunted Assessment/Plan Problem List: (1) Encephalopathy acute ICD Codes: G93.40 - Encephalopathy, unspecified SNOMED: 82984889, 509454085 Status: stable, progressing Assessment: Zyprexa 2.5mg po qhs haldol IM prn the pt lacks capacity ativan 1mg gt prior to weaning off from vent Jfefrey Lala MD Dec 06, 2018 21:21
[2018-12-07] VITALS: BP 120/65
[2018-12-07 04:00] VITALS: BP 166/61
[2018-12-07] MEDS: HydrALAZINE 10mg Tab GT PRN (04:47)
[2018-12-07] MEDS: traMADol 50mg tab GT PRN (04:48)
[2018-12-07] MEDS: Acetaminophen 650mg/20.3ml GT SCH (04:49)
[2018-12-07] MEDS: NovoLOG Insulin Flexpen SUBQ SCH ×3 (06:00→17:44)
[2018-12-07] MEDS: Renvela 800mg Pkt GT SCH ×3 (06:25→21:21)
[2018-12-07 08:00] VITALS: BP 152/82
[2018-12-07] MEDS: Aspirin Baby 81mg GT SCH (10:01)
[2018-12-07] MEDS: Carvedilol 6.25mg Tab PEG SCH ×2 (10:02→21:21)
--- NOTE | 2018-12-07 11:02 | GI Progress Note ---
Assessment/Plan Problems: (1) Foot ulcer ICD Codes: L97.509 - Non-pressure chronic ulcer of other part of unspecified foot with unspecified severity SNOMED: 18750145 Qualifiers: Qualified Codes: L97.511 - Non-pressure chronic ulcer of other part of right foot limited to breakdown of skin (2) DM (diabetes mellitus) ICD Codes: E11.9 - Type 2 diabetes mellitus without complications SNOMED: 16453385 (3) Transplant ICD Codes: Z94.9 - Transplanted organ and tissue status, unspecified SNOMED: 714949056 Status: unchanged Status Narrative Discussed with Dr. Escalera Assessment/Plan History of liver transplant, currently on Prograf C. difficile negative status post tracheostomy and PEG Infected G-tube site, fu ID recs ok to continue GTFs GT site care BID/prn topical abx around GT site HD per nephro supportive care cont tacrolimus prn transfusions ppi zofran prn Titrate bowel regimen follow labs The patient was seen and examined at bedside and all new and available data was reviewed in the patients chart. I agree with the above findings, impression and plan. (Patient seen earlier today. Signature stamp does not reflect patient encounter time.). - Jorge Escalera MD Subjective Subjective Limited. Objective Last 24 Hour Vital Signs Date Time Temp Pulse Resp B/P (MAP) Pulse Ox O2 Delivery O2 Flow Rate FiO2 12/07/18 10:02 68 152/82 12/07/18 08:41 66 25 40 12/07/18 07:20 76 22 40 12/07/18 05:03 71 21 40 12/07/18 04:47 166/61 12/07/18 04:00 66 12/07/18 04:00 Mechanical Ventilator 12/07/18 04:00 96.8 88 22 166/61 (96) 100 12/07/18 04:00 40 12/07/18 02:35 64 21 40 12/07/18 00:05 73 20 40 12/07/18 00:00 96.3 67 20 120/65 (83) 100 12/07/18 00:00 Mechanical Ventilator 12/06/18 23:16 67 12/06/18 22:45 75 24 40 12/06/18 21:00 69 110/49 12/06/18 20:58 97.8 69 20 110/49 (69) 100 12/06/18 20:50 71 22 40 12/06/18 20:00 Mechanical Ventilator 12/06/18 20:00 40 12/06/18 19:54 97.2 69 18 143/68 (93) 100 12/06/18 19:11 75 20 40 12/06/18 19:07 70 12/06/18 17:18 70 22 40 12/06/18 16:00 97.6 65 22 146/71 (96) 100 12/06/18 16:00 65 12/06/18 16:00 40 12/06/18 16:00 Mechanical Ventilator 12/06/18 15:25 98 12/06/18 15:25 68 30 40 12/06/18 12:04 40 12/06/18 12:03 Mechanical Ventilator 12/06/18 12:00 97.5 117 20 146/99 (115) 100 12/06/18 11:37 68 12/06/18 11:25 64 20 40 Intake and Output 12/06/18 12/07/18 18:59 06:59 Intake Total 900 ml Balance 900 ml Tube Feeding 540 ml Other 360 ml # Bowel Movements 1 Laboratory Tests Test 12/06/18 11:00 White Blood Count 9.2 K/UL (4.8-10.8) Red Blood Count 4.30 M/UL (4.70-6.10) L Hemoglobin 10.8 G/DL (14.2-18.0) L Hematocrit 34.4 % (42.0-52.0) L Mean Corpuscular Volume 80 FL (80-99) Mean Corpuscular Hemoglobin 25.0 PG (27.0-31.0) L Mean Corpuscular Hemoglobin Concent 31.2 G/DL (32.0-36.0) L Red Cell Distribution Width 16.9 % (11.6-14.8) H Platelet Count 172 K/UL (150-450) Mean Platelet Volume 6.8 FL (6.5-10.1) Neutrophils (%) (Auto) 77.1 % (45.0-75.0) H Lymphocytes (%) (Auto) 14.3 % (20.0-45.0) L Monocytes (%) (Auto) 7.1 % (1.0-10.0) Eosinophils (%) (Auto) 0.0 % (0.0-3.0) Basophils (%) (Auto) 1.4 % (0.0-2.0) Sodium Level 130 MMOL/L (136-145) L Potassium Level 4.9 MMOL/L (3.5-5.1) Chloride Level 90 MMOL/L (98-107) L Carbon Dioxide Level 26 MMOL/L (21-32) Anion Gap 14 mmol/L (5-15) Blood Urea Nitrogen 75 mg/dL (7-18) H Creatinine 7.4 MG/DL (0.55-1.30) H Estimat Glomerular Filtration Rate 7.4 mL/min (>60) Glucose Level 156 MG/DL (74-106) H Hemoglobin A1c 6.9 % (4.3-6.0) H Uric Acid 4.6 MG/DL (2.6-7.2) Calcium Level 9.2 MG/DL (8.5-10.1) Phosphorus Level 4.6 MG/DL (2.5-4.9) Magnesium Level 2.4 MG/DL (1.8-2.4) Total Bilirubin 0.3 MG/DL (0.2-1.0) Gamma Glutamyl Transpeptidase 23 U/L (5-85) Aspartate Amino Transf (AST/SGOT) 12 U/L (15-37) L Alanine Aminotransferase (ALT/SGPT) 10 U/L (12-78) L Alkaline Phosphatase 131 U/L (46-116) H Ammonia 13 umol/L (11-32) Total Creatine Kinase 27 U/L (26-308) Troponin I 0.063 ng/mL (0.000-0.056) C-Reactive Protein, Quantitative 9.6 mg/dL (0.00-0.90) H Pro-B-Type Natriuretic Peptide > 28917 pg/mL (0-125) H Total Protein 6.4 G/DL (6.4-8.2) Albumin 2.1 G/DL (3.4-5.0) L Globulin 4.3 g/dL Albumin/Globulin Ratio 0.5 (1.0-2.7) L Triglycerides Level 143 MG/DL (30-150) Cholesterol Level 74 MG/DL (< 200) LDL Cholesterol 23 mg/dL (<100) HDL Cholesterol 32 MG/DL (40-60) L Cholesterol/HDL Ratio 2.3 (3.3-4.4) L Thyroid Stimulating Hormone (TSH) 4.822 uiU/mL (0.358-3.740) Height (Feet): 5 Height (Inches): 5.00 Weight (Pounds): 217 General Appearance: no apparent distress Cardiovascular: normal rate Respiratory/Chest: normal breath sounds, no respiratory distress, other - Tracheostomy Abdominal Exam: normal bowel sounds, non tender, soft, GT site - Erythema around the GT site with tenderness. Patient complains of pain whenever anything is pushed through the GT Extremities: non-tender Kelvin Briggs INSURANCE VERIFY REP Dec 07, 2018 11:02
[2018-12-07] MEDS ORDERED: HYDROmorphone 2mg tab ORAL SCH (11:30)
--- NOTE | 2018-12-07 11:43 | Nephrology Progress Note ---
Assessment/Plan Problem List: (1) ESRD (end stage renal disease) on dialysis (2) Foot ulcer (3) CHF (congestive heart failure) Assessment: Ej Fx 20 % (4) Pacemaker (5) Acute respiratory failure Assessment: with Co2 retention Assessment ESRD with high K and SOB on admit Foot ulcer, likely infected High Troponin likely NSTMI Pacer , Pleural effusion s/p CABGS s/p Liver transplant Plan GT site infection, wait for ID advise pain med change to dilaudid GT Neuro eval Now has tracheostomy and PEG Adjust BP meds add nitro paste TID HD next Antibiotics by ID start tube feeding / hasPEG per cardio and ID Podiatry and Vascular surgical fu ? DC planning? ALSO COVERING MEDCINE FOR DR BERG Subjective ROS Limited/Unobtainable: No Constitutional: Reports: other - complains of pain at GT site Objective Objective Last 24 Hour Vital Signs Date Time Temp Pulse Resp B/P (MAP) Pulse Ox O2 Delivery O2 Flow Rate FiO2 12/07/18 10:02 68 152/82 12/07/18 08:41 66 25 40 12/07/18 08:00 65 12/07/18 07:20 76 22 40 12/07/18 05:03 71 21 40 12/07/18 04:47 166/61 12/07/18 04:00 66 12/07/18 04:00 Mechanical Ventilator 12/07/18 04:00 96.8 88 22 166/61 (96) 100 12/07/18 04:00 40 12/07/18 02:35 64 21 40 12/07/18 00:05 73 20 40 12/07/18 00:00 96.3 67 20 120/65 (83) 100 12/07/18 00:00 Mechanical Ventilator 12/06/18 23:16 67 12/06/18 22:45 75 24 40 12/06/18 21:00 69 110/49 12/06/18 20:58 97.8 69 20 110/49 (69) 100 12/06/18 20:50 71 22 40 12/06/18 20:00 Mechanical Ventilator 12/06/18 20:00 40 12/06/18 19:54 97.2 69 18 143/68 (93) 100 12/06/18 19:11 75 20 40 12/06/18 19:07 70 12/06/18 17:18 70 22 40 12/06/18 16:00 97.6 65 22 146/71 (96) 100 12/06/18 16:00 65 12/06/18 16:00 40 12/06/18 16:00 Mechanical Ventilator 12/06/18 15:25 98 12/06/18 15:25 68 30 40 12/06/18 12:04 40 12/06/18 12:03 Mechanical Ventilator 12/06/18 12:00 97.5 117 20 146/99 (115) 100 Intake and Output 12/06/18 12/07/18 18:59 06:59 Intake Total 900 ml Balance 900 ml Tube Feeding 540 ml Other 360 ml # Bowel Movements 1 Height (Feet): 5 Height (Inches): 5.00 Weight (Pounds): 217 General Appearance: no apparent distress Cardiovascular: normal rate Respiratory/Chest: decreased breath sounds Abdomen: other - GT site red Objective no other change Nakul Stevens MD Dec 07, 2018 11:43
[2018-12-07] MEDS: Nitroglycerin 2% oint pkt TOPIC SCH ×2 (11:56→17:42)
[2018-12-07 12:00] VITALS: BP 113/69
--- NOTE | 2018-12-07 12:27 | Psych Consult Progress Note ---
Psychiatry Progress Note Psychiatry Progress Note Medications Current Medications Medications (Trade) Dose Ordered Sig/Aleks Route PRN Reason Start Time Stop Time Status Last Admin Dose Admin Acetaminophen (Tylenol) 650 mg Q4H PRN NG Mild Pain/Temp > 100.5 11/12/18 19:00 12/12/18 18:47 11/28/18 05:31 Aspirin (ASA) 162 mg DAILY GT 12/08/18 09:00 12/20/18 08:59 Atorvastatin Calcium (Lipitor) 10 mg BEDTIME NG 12/01/18 21:00 12/21/18 20:59 12/06/18 21:12 Carvedilol (Coreg) 6.25 mg EVERY 12 HOURS PEG 12/06/18 21:00 01/03/19 20:59 12/07/18 10:02 Dextrose (Dextrose 50%) 25 ml Q30M PRN IV Hypoglycemia 12/01/18 19:30 12/31/18 19:29 Dextrose (Dextrose 50%) 50 ml Q30M PRN IV Hypoglycemia 12/01/18 19:30 12/31/18 19:29 Docusate Sodium (Colace) 100 mg EVERY 8 HOURS PRN GT constipation 11/24/18 18:51 12/20/18 18:50 Hydralazine HCl (Apresoline) 10 mg Q6H PRN GT For High Blood Pressure 12/03/18 16:45 01/02/19 16:44 12/07/18 04:47 Hydromorphone HCl (Dilaudid) 1 mg ONCE ORAL 12/07/18 11:30 12/07/18 12:30 12/07/18 11:55 Hydromorphone HCl (Dilaudid) 1 mg Q4H PRN GT For Pain 12/07/18 11:30 12/14/18 11:29 Insulin Aspart (NovoLOG) EVERY 6 HOURS SUBQ 12/02/18 00:00 12/31/18 20:59 12/06/18 23:47 Iopamidol (Isovue-300 100ml) 100 ml NOW PRN INJ Radiology Procedure 12/05/18 17:15 12/07/18 17:05 Lactulose (Cephulac) 20 gm THREE TIMES A DAY PRN GT Constipation 11/24/18 18:51 12/23/18 18:50 Lansoprazole (Prevacid) 30 mg BID GT 11/20/18 09:00 12/20/18 08:59 12/07/18 09:57 Nicotine (Nicoderm) 1 patch Q24H TDERMAL 12/01/18 22:15 12/21/18 22:14 12/06/18 21:37 Nitroglycerin (Nitro-Bid) 1 inch TID@0600,1200,1800 TOPIC 12/07/18 12:00 01/06/19 11:59 Olanzapine (ZyPREXA) 2.5 mg BEDTIME GT 12/05/18 21:00 12/13/18 20:59 12/06/18 21:12 Olanzapine (ZyPREXA) 2.5 mg Q6H PRN ORAL agitation 11/15/18 23:00 12/15/18 22:59 12/06/18 00:23 Polyethylene Glycol (Miralax) 17 gm DAILYPRN PRN NG Constipation 11/12/18 19:00 12/11/18 15:29 11/13/18 05:30 Sevelamer Carbonate (Renvela) 800 mg Q8HR GT 11/20/18 14:00 12/20/18 13:59 12/07/18 06:25 Tacrolimus (Prograf) 2 mg MoWeFr@0000,1200 ORAL 12/07/18 00:00 12/21/18 00:00 12/07/18 11:55 Tacrolimus (Prograf) 2 mg SuTuThSa@0900,2100 ORAL 12/05/18 21:00 01/04/19 20:59 12/06/18 21:38 Problems: (1) Encephalopathy acute Status: Chronic Neurological/Psychiatric: Reports: anxiety Allergies: Coded Allergies: CEPHALEXIN (Unverified Allergy, Unknown, 02/24/14) SULFAMETHOXAZOLE (Unverified Allergy, Unknown, 02/24/14) TRIMETHOPRIM (Unverified Allergy, Unknown, 02/24/14) Objective Data Height (Feet): 5 Height (Inches): 5.00 Weight (Pounds): 217 General Appearance: no apparent distress, alert, confused - the pt is able to understand however is unable to write nor communicate. There is no neurological deficiets and the pts ct has been normal Behavior Mannerisms: good eye contact Mental Status Exam - Affect: flat Mental Status Exam - Suicidal: not present Assessment/Plan Problem List: (1) Encephalopathy acute ICD Codes: G93.40 - Encephalopathy, unspecified SNOMED: [id number], [id number] Plan: Zyprexa 2.5mg po qhs haldol IM prn the pt lacks capacity ativan 1mg gt prior to weaning off from vent MRI to rule out stroke however the pt is intubated Jeffrey Lala MD Dec 07, 2018 12:27
--- NOTE | 2018-12-07 13:13 | Cardiac Electrophysiology PN ---
Assessment/Plan Assessment/Plan 1. Troponin leak with no chest pain. Due to renal failure. On Coreg 3.125 mg bid, aspirin and Lipitor 2. S/P CABG 3. Nonsustained ventricular tachycardia. Hx of old UT and CABG. EF 55%. No Syncope 4. Congestive heart failure. On hemodialysis 5. End-stage renal disease, on hemodialysis per Dr. Stevens 6. Status post right sided [employer] dual chamber pacemaker with Nl Fx. 7. Right foot ulcer. Antibiotic per Dr. Landis. FU by Dr. Huizar 8. History of liver transplant on Prograf 9. Respiratory failure, ? etiology S/P Emergency tracheostomy. 10. Pleural effusion. FU Dr. Mendoza 11. Dysphagia, S/P PEG DW RN Subjective Subjective On the vent via tracheostomy.Paced rhythm. Alert and responsive Objective Last 24 Hour Vital Signs Date Time Temp Pulse Resp B/P (MAP) Pulse Ox O2 Delivery O2 Flow Rate FiO2 12/07/18 11:59 65 22 40 12/07/18 11:56 152/82 12/07/18 11:14 64 22 40 12/07/18 10:02 68 152/82 12/07/18 08:41 66 25 40 12/07/18 08:00 65 12/07/18 08:00 97.3 68 22 152/82 (105) 100 12/07/18 07:20 76 22 40 12/07/18 05:03 71 21 40 12/07/18 04:47 166/61 12/07/18 04:00 66 12/07/18 04:00 Mechanical Ventilator 12/07/18 04:00 96.8 88 22 166/61 (96) 100 12/07/18 04:00 40 12/07/18 02:35 64 21 40 12/07/18 00:05 73 20 40 12/07/18 00:00 96.3 67 20 120/65 (83) 100 12/07/18 00:00 Mechanical Ventilator 12/06/18 23:16 67 12/06/18 22:45 75 24 40 12/06/18 21:00 69 110/49 12/06/18 20:58 97.8 69 20 110/49 (69) 100 12/06/18 20:50 71 22 40 12/06/18 20:00 Mechanical Ventilator 4/21/19 20:00 40 12/06/18 19:54 97.2 69 18 143/68 (93) 100 12/06/18 19:11 75 20 40 12/06/18 19:07 70 12/06/18 17:18 70 22 40 12/06/18 16:00 97.6 65 22 146/71 (96) 100 12/06/18 16:00 65 12/06/18 16:00 40 12/06/18 16:00 Mechanical Ventilator 12/06/18 15:25 98 12/06/18 15:25 68 30 40 Intake and Output 12/06/18 12/07/18 18:59 06:59 Intake Total 900 ml Balance 900 ml Tube Feeding 540 ml Other 360 ml # Bowel Movements 1 Objective HEAD AND NECK: No JVD.Tracheostomy intact LUNGS: Coarse rhonchi. CARDIOVASCULAR: Regular S1 and S2 with no gallop. Sternotomy is intact Pacemaker in the right subclavian ABDOMEN: Soft.PEG in place EXTREMITIES: 1+ pitting edema Shivam Sharpe MD Dec 07, 2018 13:13
--- NOTE | 2018-12-07 13:29 | Pulmonology Progress Note ---
Assessment/Plan Assessment/Plan 1. Resp failure, hypercapneic 2. End-stage renal disease, on dialysis, status post multiple upper extremity vascular procedures. 3. Coronary artery bypass surgery. 4. Diabetes. 5. Dysphonia, tongue swelling, resolved; s/p trach PLAN: not tolerating weaning tolerates feeds disc w RN dc when bed available Subjective ROS Limited/Unobtainable: Yes Allergies: Coded Allergies: CEPHALEXIN (Unverified Allergy, Unknown, 02/24/14) SULFAMETHOXAZOLE (Unverified Allergy, Unknown, 02/24/14) TRIMETHOPRIM (Unverified Allergy, Unknown, 02/24/14) Objective Last 24 Hour Vital Signs Date Time Temp Pulse Resp B/P (MAP) Pulse Ox O2 Delivery O2 Flow Rate FiO2 12/07/18 12:00 40 12/07/18 12:00 Mechanical Ventilator 12/07/18 11:59 65 22 40 12/07/18 11:56 152/82 12/07/18 11:14 64 22 40 12/07/18 10:02 68 152/82 12/07/18 08:41 66 25 40 12/07/18 08:00 65 12/07/18 08:00 Mechanical Ventilator 12/07/18 08:00 97.3 68 22 152/82 (105) 100 12/07/18 08:00 40 12/07/18 07:20 76 22 40 12/07/18 05:03 71 21 40 12/07/18 04:47 166/61 12/07/18 04:00 66 12/07/18 04:00 Mechanical Ventilator 12/07/18 04:00 96.8 88 22 166/61 (96) 100 12/07/18 04:00 40 12/07/18 02:35 64 21 40 12/07/18 00:05 73 20 40 12/07/18 00:00 96.3 67 20 120/65 (83) 100 12/07/18 00:00 Mechanical Ventilator 12/06/18 23:16 67 12/06/18 22:45 75 24 40 12/06/18 21:00 69 110/49 12/06/18 20:58 97.8 69 20 110/49 (69) 100 12/06/18 20:50 71 22 40 12/06/18 20:00 Mechanical Ventilator 12/06/18 20:00 40 12/06/18 19:54 97.2 69 18 143/68 (93) 100 12/06/18 19:11 75 20 40 12/06/18 19:07 70 12/06/18 17:18 70 22 40 12/06/18 16:00 97.6 65 22 146/71 (96) 100 12/06/18 16:00 65 12/06/18 16:00 40 12/06/18 16:00 Mechanical Ventilator 12/06/18 15:25 98 12/06/18 15:25 68 30 40 Intake and Output 12/06/18 12/07/18 18:59 06:59 Intake Total 900 ml Balance 900 ml Tube Feeding 540 ml Other 360 ml # Bowel Movements 1 Objective trach on vent General Appearance: no acute distress HEENT: atraumatic Respiratory/Chest: lungs clear, decreased breath sounds Cardiovascular: normal rate Current Medications Medications (Trade) Dose Ordered Sig/Aleks Route PRN Reason Start Time Stop Time Status Last Admin Dose Admin Acetaminophen (Tylenol) 650 mg Q4H PRN NG Mild Pain/Temp > 100.5 11/12/18 19:00 12/12/18 18:47 11/28/18 05:31 Aspirin (ASA) 162 mg DAILY GT 12/08/18 09:00 12/20/18 08:59 Atorvastatin Calcium (Lipitor) 10 mg BEDTIME NG 12/01/18 21:00 12/21/18 20:59 12/06/18 21:12 Carvedilol (Coreg) 6.25 mg EVERY 12 HOURS PEG 12/06/18 21:00 01/03/19 20:59 12/07/18 10:02 Dextrose (Dextrose 50%) 25 ml Q30M PRN IV Hypoglycemia 12/01/18 19:30 12/31/18 19:29 Dextrose (Dextrose 50%) 50 ml Q30M PRN IV Hypoglycemia 12/01/18 19:30 12/31/18 19:29 Docusate Sodium (Colace) 100 mg EVERY 8 HOURS PRN GT constipation 11/24/18 18:51 12/20/18 18:50 Hydralazine HCl (Apresoline) 10 mg Q6H PRN GT For High Blood Pressure 12/03/18 16:45 01/02/19 16:44 12/07/18 04:47 Hydromorphone HCl (Dilaudid) 1 mg Q4H PRN GT For Pain 12/07/18 11:30 12/14/18 11:29 Insulin Aspart (NovoLOG) EVERY 6 HOURS SUBQ 12/02/18 00:00 12/31/18 20:59 12/06/18 23:47 Iopamidol (Isovue-300 100ml) 100 ml NOW PRN INJ Radiology Procedure 12/05/18 17:15 12/07/18 17:05 Lactulose (Cephulac) 20 gm THREE TIMES A DAY PRN GT Constipation 11/24/18 18:51 12/23/18 18:50 Lansoprazole (Prevacid) 30 mg BID GT 11/20/18 09:00 12/20/18 08:59 12/07/18 09:57 Nicotine (Nicoderm) 1 patch Q24H TDERMAL 12/01/18 22:15 12/21/18 22:14 12/06/18 21:37 Nitroglycerin (Nitro-Bid) 1 inch TID@0600,1200,1800 TOPIC 12/07/18 12:00 01/06/19 11:59 Olanzapine (ZyPREXA) 2.5 mg BEDTIME GT 12/05/18 21:00 12/13/18 20:59 12/06/18 21:12 Olanzapine (ZyPREXA) 2.5 mg Q6H PRN ORAL agitation 11/15/18 23:00 12/15/18 22:59 12/06/18 00:23 Polyethylene Glycol (Miralax) 17 gm DAILYPRN PRN NG Constipation 11/12/18 19:00 12/11/18 15:29 11/13/18 05:30 Sevelamer Carbonate (Renvela) 800 mg Q8HR GT 11/20/18 14:00 12/20/18 13:59 12/07/18 06:25 Tacrolimus (Prograf) 2 mg MoWeFr@0000,1200 ORAL 12/07/18 00:00 12/21/18 00:00 12/07/18 11:55 Tacrolimus (Prograf) 2 mg SuTuThSa@0900,2100 ORAL 12/05/18 21:00 01/04/19 20:59 12/06/18 21:38 Saroj Mendoza MD Dec 07, 2018 13:29
--- NOTE | 2018-12-07 15:03 | Podiatric Progress Note ---
Assessment/Plan Patient Gregg Restrepo is a 68 year old male who was admitted on Oct 31, 2018 at 19:13 with Assessment/Plan A: R heel ulceration, necrotic, painful Hep C , s/p Liver transplant CAD, s/p CABG Cellulitis of ABD DM Elevated Troponin. P: - Pt seen and evaluated. - labs and chart reviewed. - Daily wound care order submitted. - Patient not stable for any surgical debridement at this time. - Patient may benefit from heel debridement once stabilized. - Cont care per primary team / specialists. - Podiatry will con to monitor. Subjective ROS Limited/Unobtainable: No Reason for consult Right heel ulcer Allergies: Coded Allergies: CEPHALEXIN (Unverified Allergy, Unknown, 02/24/14) SULFAMETHOXAZOLE (Unverified Allergy, Unknown, 02/24/14) TRIMETHOPRIM (Unverified Allergy, Unknown, 02/24/14) Subjective S: Pt non-verbal at bedside, son is at bedside. Objective Exam Last 24 Hour Vital Signs Date Time Temp Pulse Resp B/P (MAP) Pulse Ox O2 Delivery O2 Flow Rate FiO2 12/07/18 12:00 40 12/07/18 12:00 Mechanical Ventilator 12/07/18 11:59 65 22 40 12/07/18 11:56 152/82 12/07/18 11:14 64 22 40 12/07/18 10:02 68 152/82 12/07/18 08:41 66 25 40 12/07/18 08:00 65 12/07/18 08:00 Mechanical Ventilator 12/07/18 08:00 97.3 68 22 152/82 (105) 100 12/07/18 08:00 40 12/07/18 07:20 76 22 40 12/07/18 05:03 71 21 40 12/07/18 04:47 166/61 12/07/18 04:00 66 12/07/18 04:00 Mechanical Ventilator 12/07/18 04:00 96.8 88 22 166/61 (96) 100 12/07/18 04:00 40 12/07/18 02:35 64 21 40 12/07/18 00:05 73 20 40 12/07/18 00:00 96.3 67 20 120/65 (83) 100 12/07/18 00:00 Mechanical Ventilator 12/06/18 23:16 67 12/06/18 22:45 75 24 40 12/06/18 21:00 69 110/49 12/06/18 20:58 97.8 69 20 110/49 (69) 100 12/06/18 20:50 71 22 40 12/06/18 20:00 Mechanical Ventilator 12/06/18 20:00 40 12/06/18 19:54 97.2 69 18 143/68 (93) 100 12/06/18 19:11 75 20 40 12/06/18 19:07 70 12/06/18 17:18 70 22 40 12/06/18 16:00 97.6 65 22 146/71 (96) 100 12/06/18 16:00 65 12/06/18 16:00 40 12/06/18 16:00 Mechanical Ventilator 12/06/18 15:25 98 12/06/18 15:25 68 30 40 Microbiology Date/Time Source Procedure Growth Status 11/14/18 15:30 Blood Blood Culture - Final NO GROWTH AFTER 5 DAYS Complete 11/12/18 12:13 Pleural Fluid Gram Stain - Final Complete 11/12/18 12:13 Pleural Fluid Body Fluid Culture - Final NO GROWTH Complete 10/31/18 20:39 Wound Gram Stain - Final Complete 10/31/18 20:39 Wound Culture - Final Staphylococcus Aureus - Mrsa Complete 10/31/18 21:00 Nasal Nares MRSA Culture - Final Staphylococcus Aureus - Mrsa Complete 11/30/18 17:33 Stool Clostridium difficile Toxin Assay - Final Complete 11/14/18 14:53 Neck Gram Stain - Final Complete 11/14/18 14:53 Wound Culture - Final Klebsiella Pneumoniae Pseudomonas Aeruginosa Staphylococcus Aureus - Mrsa Hannah Tropicalis Complete Exam Narrative Objective Narrative Foused B/L LE: Right foot: pulses +1/4 DP/PT , ulceration noted to plantar posterior heel, approx 2.5 cm x 2.5 cm x UTD. Wound base is necrotic, larry-wound margins are WNL , (+) Pain upon palpation. No active purulent drainage is noted. No increase in temp differential, minimal edema and erythema is noted. Angel Parada DPM Dec 07, 2018 15:03
[2018-12-07 16:00] VITALS: BP 111/49
--- NOTE | 2018-12-07 16:38 | Infectious Diseases Prog Note ---
Assessment/Plan Problems: (1) G-tube site cellulitis Assessment & Plan: will send culture from the site , continue local antibiotics as per GI (2) Thrush, oral Assessment & Plan: continue local nystatin , S/P micafungin for three weeks empirically (3) HCV antibody positive Assessment & Plan: no evidence of active infection, with undetectable viral load , suspect due to previous infection , cleared, S/P liver transplant . (4) Foot ulcer Assessment & Plan: in diabetic patient , with MRSA , S/P vancomycin treatment with HD for two weeks , pending vascular eval and possible surgical debridement. bone scan ruled out osteomyelitis of the heel . follow up with ammonium nitrate neutralizer (5) DM (diabetes mellitus) Assessment & Plan: recommend tight glycemic control to keep blood glucose between 100-140 (6) CHF (congestive heart failure) Assessment & Plan: on HD , renal is following, monitor daily weight (7) Encephalopathy acute Assessment & Plan: suspect metabolic, with high urea level, waxing and waning , now improved (8) Severe tongue swelling Assessment & Plan: improving , s/p tracheostomy to protect his airway since respiratory status worsened . now improving, pulmonary is following (9) Pleural effusion Assessment & Plan: recurrent on the right, with lung collapse , S/P thoracentesis X2 with removal of 1.5 cc of clear fluids. PREVIOUS culture were negative with negative cytology Subjective Constitutional: Reports: no symptoms HEENT: Reports: no symptoms Respiratory: Reports: no symptoms Breasts: Reports: no symptoms Cardiovascular: Reports: no symptoms Gastrointestinal/Abdominal: Reports: no symptoms Genitourinary: Reports: no symptoms Neurologic: Reports: no symptoms Psychiatric: Reports: no symptoms Skin: Reports: ulcer, other - larry G tube redness with draning Endocrine: Reports: no symptoms Hematologic: Reports: no symptoms Musculoskeletal: Reports: no symptoms Allergies: Coded Allergies: CEPHALEXIN (Unverified Allergy, Unknown, 02/24/14) SULFAMETHOXAZOLE (Unverified Allergy, Unknown, 02/24/14) TRIMETHOPRIM (Unverified Allergy, Unknown, 02/24/14) Subjective he was comfortable, has no facial swelling and mild tongue swelling , awake and responsive, no fever or chills, no significant secretions , no SOB . has less thrush on his tongue Objective Vital Signs Last 24 Hour Vital Signs Date Time Temp Pulse Resp B/P (MAP) Pulse Ox O2 Delivery O2 Flow Rate FiO2 12/07/18 15:38 73 24 40 12/07/18 12:00 40 12/07/18 12:00 Mechanical Ventilator 12/07/18 12:00 97.0 70 20 113/69 (84) 100 12/07/18 12:00 68 12/07/18 11:59 65 22 40 12/07/18 11:56 152/82 12/07/18 11:14 64 22 40 12/07/18 10:02 68 152/82 12/07/18 08:41 66 25 40 12/07/18 08:00 65 12/07/18 08:00 Mechanical Ventilator 12/07/18 08:00 97.3 68 22 152/82 (105) 100 12/07/18 08:00 40 12/07/18 07:20 76 22 40 12/07/18 05:03 71 21 40 12/07/18 04:47 166/61 12/07/18 04:00 66 12/07/18 04:00 Mechanical Ventilator 12/07/18 04:00 96.8 88 22 166/61 (96) 100 12/07/18 04:00 40 12/07/18 02:35 64 21 40 12/07/18 00:05 73 20 40 12/07/18 00:00 96.3 67 20 120/65 (83) 100 12/07/18 00:00 Mechanical Ventilator 12/06/18 23:16 67 12/06/18 22:45 75 24 40 12/06/18 21:00 69 110/49 12/06/18 20:58 97.8 69 20 110/49 (69) 100 12/06/18 20:50 71 22 40 12/06/18 20:00 Mechanical Ventilator 12/06/18 20:00 40 12/06/18 19:54 97.2 69 18 143/68 (93) 100 12/06/18 19:11 75 20 40 12/06/18 19:07 70 12/06/18 17:18 70 22 40 Height (Feet): 5 Height (Inches): 5.00 Weight (Pounds): 217 General Appearance: WD/WN, no acute distress HEENT: normocephalic, atraumatic, anicteric, mucous membranes moist, PERRL, EOMI, pharynx normal, supple, no JVD, status post trach, thrush Respiratory/Chest: chest wall non-tender, no respiratory distress, no accessory muscle use, decreased breath sounds, crackles/rales Cardiovascular: normal peripheral pulses, normal rate, regular rhythm, no gallop/murmur, no JVD Abdomen: normal bowel sounds, soft, non tender, no organomegaly, non distended , no mass, no scars, other - larry G tube redness with draining Genitourinary: normal external genitalia Extremities: no cyanosis, no clubbing Skin: no rash, no lesions, ulcers 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: hay stacker 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 normal, alert, responsive Lymphatic: no neck adenopathy, no groin adenopathy Musculoskeletal: normal muscle bulk, no effusion Current Medications Medications (Trade) Dose Ordered Sig/Aleks Route PRN Reason Start Time Stop Time Status Last Admin Dose Admin Acetaminophen (Tylenol) 650 mg Q4H PRN NG Mild Pain/Temp > 100.5 11/12/18 19:00 12/12/18 18:47 11/28/18 05:31 Aspirin (ASA) 162 mg DAILY GT 12/08/18 09:00 12/20/18 08:59 Atorvastatin Calcium (Lipitor) 10 mg BEDTIME NG 12/01/18 21:00 12/21/18 20:59 12/06/18 21:12 Bacitracin (Bacitracin) 1 applic BID TOPIC 12/07/18 18:00 01/06/19 17:59 Carvedilol (Coreg) 6.25 mg EVERY 12 HOURS PEG 12/06/18 21:00 01/03/19 20:59 12/07/18 10:02 Clotrimazole (Lotrimin) 1 applic BID TOPIC 12/07/18 18:00 01/06/19 17:59 Dextrose (Dextrose 50%) 25 ml Q30M PRN IV Hypoglycemia 12/01/18 19:30 12/31/18 19:29 Dextrose (Dextrose 50%) 50 ml Q30M PRN IV Hypoglycemia 12/01/18 19:30 12/31/18 19:29 Docusate Sodium (Colace) 100 mg EVERY 8 HOURS PRN GT constipation 11/24/18 18:51 12/20/18 18:50 Hydralazine HCl (Apresoline) 10 mg Q6H PRN GT For High Blood Pressure 12/03/18 16:45 01/02/19 16:44 12/07/18 04:47 Hydromorphone HCl (Dilaudid) 1 mg Q4H PRN GT For Pain 12/07/18 11:30 12/14/18 11:29 Insulin Aspart (NovoLOG) EVERY 6 HOURS SUBQ 12/02/18 00:00 12/31/18 20:59 12/06/18 23:47 Iopamidol (Isovue-300 100ml) 100 ml NOW PRN INJ Radiology Procedure 12/05/18 17:15 12/07/18 17:05 Lactulose (Cephulac) 20 gm THREE TIMES A DAY PRN GT Constipation 11/24/18 18:51 12/23/18 18:50 Lansoprazole (Prevacid) 30 mg BID GT 11/20/18 09:00 12/20/18 08:59 12/07/18 09:57 Nicotine (Nicoderm) 1 patch Q24H TDERMAL 12/01/18 22:15 12/21/18 22:14 12/06/18 21:37 Nitroglycerin (Nitro-Bid) 1 inch TID@0600,1200,1800 TOPIC 12/07/18 12:00 01/06/19 11:59 Olanzapine (ZyPREXA) 2.5 mg BEDTIME GT 12/05/18 21:00 12/13/18 20:59 12/06/18 21:12 Olanzapine (ZyPREXA) 2.5 mg Q6H PRN ORAL agitation 11/15/18 23:00 12/15/18 22:59 12/06/18 00:23 Polyethylene Glycol (Miralax) 17 gm DAILYPRN PRN NG Constipation 11/12/18 19:00 12/11/18 15:29 11/13/18 05:30 Sevelamer Carbonate (Renvela) 800 mg Q8HR GT 11/20/18 14:00 12/20/18 13:59 12/07/18 14:51 Tacrolimus (Prograf) 2 mg MoWeFr@0000,1200 ORAL 12/07/18 00:00 12/21/18 00:00 12/07/18 11:55 Tacrolimus (Prograf) 2 mg SuTuThSa@0900,2100 ORAL 12/05/18 21:00 01/04/19 20:59 12/06/18 21:38 Francois Landis M.D. Dec 07, 2018 16:38
[2018-12-07] MEDS: Bacitracin Oint UD TOPIC SCH (17:41)
[2018-12-07] MEDS: HYDROmorphone 2mg tab GT PRN (18:55)
[2018-12-07 20:00] VITALS: BP 127/57
[2018-12-07] MEDS: OLANZapine 2.5mg tab GT SCH (21:21)
--- NOTE | 2018-12-07 23:21 | Consultation ---
Consult Note Consult Note NEUROLOGY CONSULTATION: Full note dictated #[id number] 68-year-old, right-handed, gentleman, with past history of multiple medical problems including hypertension, diabetes mellitus, end-stage renal disease for which he is hemodialysis dependent, prior episodes of sepsis, prior episodes of encephalopathy, who was hospitalized at [facility] on October 31, 2018. Since then he has had a stormy hospital course including a pneumonia and sepsis, right foot infection, respiratory failure for which he has needed a tracheostomy, and in addition he has been exhibiting some alteration in his mental state. This consultation was requested to evaluate the patient from a neurological point of view for his altered mental state. At this point in time he feels relatively well and denies any alteration in his mental state. ON EXAMINATION: Fully oriented. Able to remember 3/3 words immediately after 1 minute and after 3 minutes on the second trial. Able to remember presidents Trump to Mak Senior. Able to do simple mathematics. Able to do visual spatial problems. Power G 5/5 except for G 4+/5 in the iliopsoas muscles bilaterally. Reflexes: 1+ and bilaterally symmetrical at the biceps, triceps, brachioradialis and knees. 0 at both ankles. Plantar responses flexor. IMPRESSION: Mild multifactorial encephalopathy. CT of brain done on 11/10/2018 benign RECOMMENDATIONS: EEG to evaluate degree and type of encephalopathy. Observe closely. Pantera Cool M.D., M.S.P.H. Pantera Cool MD Dec 07, 2018 23:21
[2018-12-08] VITALS: BP 120/65
--- NOTE | 2018-12-08 00:45 | Consultation ---
DATE OF CONSULTATION: 12/07/2018 NEUROLOGY CONSULTATION CONSULTING PHYSICIAN: Pantera Cool M.D. REFERRING PHYSICIAN: Nakul Stevens M.D. HISTORY: Mr. Gregg Restrepo is a 68-year-old, right-handed, gentleman with a past history of multiple medical problems including hypertension, diabetes mellitus, end-stage renal disease for which he is hemodialysis dependent, prior episodes of sepsis, and prior episodes of encephalopathy, who was hospitalized at [facility] on 10/31/2018. He initially presented with a right-sided heel wound and significant pain in that area. Following that, he has had an extremely stormy hospital course including pneumonia, sepsis, significant right foot infection, and respiratory failure for which he has needed a tracheostomy, and in addition, he has been exhibiting some alteration in his mental state. This consultation was requested to evaluate the patient from a neurological point of view for his altered mental state. At this point in time, the patient feels relatively well and denies any alteration in his mental state. He feels that his mind is clear, his memory is good, and there is no confusion, disorientation, or other problem. He does, however, admit that earlier his mind was not as clear as it is today. Of note is that he has had a CT scan of the brain performed on 11/10/2018, which was benign. PAST MEDICAL HISTORY: Significant for hypertension, diabetes mellitus, end-stage renal disease for which he is hemodialysis dependent, prior episodes of sepsis, prior episodes of encephalopathy, and right foot infection. FAMILY HISTORY: Significant for high blood pressure and diabetes mellitus in other family members. PERSONAL HISTORY: Home: He lives at home with his . Work: He is retired. Habits: None at this point in time. MEDICATIONS: Aspirin 162 mg daily, nitroglycerin, Dilaudid p.r.n., Prograf, carvedilol, Zyprexa, hydralazine, insulin, NicoDerm patch, atorvastatin, DSS, lactulose, Renvela, Prevacid, MiraLAX, and Tylenol p.r.n. PHYSICAL EXAMINATION: GENERAL: He is a well-developed and well-nourished, pleasant gentleman, lying in bed connected to a ventilator via tracheostomy. VITAL SIGNS: Pulse 82/minute, blood pressure 127/57 mmHg, respirations 22/minute, and temperature 97 degrees Fahrenheit. HEAD: Normocephalic and atraumatic. EENT: Examination benign. NECK: No neck rigidity was observed. He did have a tracheostomy. NEUROLOGICAL EXAMINATION: MENTAL STATUS EXAMINATION: He was awake and alert. He was oriented to person, place, and time. He was able to recall 3/3 words immediately, after 1 minute, and after 3 minutes on the second trial. He was able to remember president Trskyler through [employer]. His mathematical skills were good. His visuospatial function was preserved. SPEECH: Could not be tested, but he was able to mouth words relatively well. LANGUAGE: He was able to comprehend and express himself relatively well. CRANIAL NERVES EXAMINATION: II: The visual mckeon were intact to confrontation testing. III, IV & : The external ocular movements were full and the pupils 3 mm in diameter, equal, round, regular, and reactive sluggishly to light. V: He had normal facial sensations, and the temporales, masseters, and pterygoids functioned normally. VII: He had normal facial expressions and no facial asymmetry. VIII: Hearing was decreased bilaterally with worse hearing on the left side compared to the right. IX: The palate moved symmetrically on phonation. X: Could not be tested. XI: The sternocleidomastoids and trapezii functioned normally. XII: The tongue was in the midline without any fasciculations or atrophy. MOTOR SYSTEM: The tone was normal in all four extremities. Examination of muscle mass revealed generalized muscle wasting. Examination of power revealed G 5/5 power except for G 4+/5 power in the iliopsoas muscles bilaterally. SENSORY EXAMINATION: He had intact sensations to light touch. Other sensory modalities could not be tested adequately. REFLEXES: 1+ and bilaterally symmetrical at the biceps, triceps, brachioradialis, and knees, 0 at both ankles. The plantar responses were flexor bilaterally. COORDINATION: He performed well on eafrih-ji-sowu testing. STANCE & GAIT: Were deferred. DIAGNOSTIC IMPRESSION: 1. Mr. Gregg Restrepo is a 68-year-old, right-handed, gentleman with past history of multiple medical problems including hypertension, diabetes mellitus, end-stage renal disease for which he is hemodialysis dependent, prior episodes of sepsis, and prior episodes of encephalopathy, who was admitted to [facility] on 10/31/2018. Following that, he has had a stormy hospital course including pneumonia and sepsis, right foot infection, respiratory failure for which he has needed tracheostomy and in addition he has exhibited an alteration in his mental state with some waxing and waning of his mental state. 2. On neurological examination, at this time, he is fully oriented, has normal recent and remote memory, normal visuospatial function, normal higher cognitive function, and is able to comprehend and express himself well. He does have mild G 4+/5 weakness in the iliopsoas muscles bilaterally, globally diminished deep tendon reflexes with loss of ankle jerks, but no definite focal or lateralizing neurological findings. 3. His latest laboratory data revealed that he was anemic with a hemoglobin of 10.8 G. His last blood gas performed on 11/14/2018 revealed that he had a pCO2 elevated at 56.4 with a normal pO2 of 88.3 and normal pH of 7.37. His latest chemistry panel revealed that he was mildly hyponatremic with a sodium of 130, and had a chloride of 90. The BUN was elevated at 75, creatinine elevated at 7.4, glucose elevated at 156, Hemoglobin A1c elevated at 6.9%, Alkaline phosphatase elevated at 131, and ProBNP greater than 35,000. His last B12 level on 11/07/2018 was 723. His last folate on 11/07/2018 was 18.6. His last TSH on 12/06/2018 was 4.82, which is minimally elevated. 4. The CT scan of the brain performed on 11/10/2018 was benign for acute intracranial pathology. 5. The patient's history and neurological examination are most consistent with mild multifactorial encephalopathy, which apparently waxes and wanes, but no definite focal neurological dysfunction. RECOMMENDATIONS: 1. Agree with management thus far. 2. An EEG will be ordered to evaluate the patient for the degree and type of encephalopathy. 3. Attempts should be made to correct the patient's toxic metabolic imbalances that have already been observed. 4. The patient will be observed closely and depending on how he fares over the next day or so, further recommendations will be given. Thank you for entrusting me with the care of Mr. Restrepo. I shall follow him with you. Pantera Cool M.D., M.S.P.H. DR: KAYLEEN JOB#: [id number] MTDD
[2018-12-08] MEDS: HYDROmorphone 2mg tab GT PRN ×6 (00:53→23:48)
[2018-12-08 04:00] VITALS: BP 158/83
[2018-12-08] MEDS: Renvela 800mg Pkt GT SCH ×3 (05:55→22:07)
[2018-12-08] MEDS: Nitroglycerin 2% oint pkt TOPIC SCH ×3 (05:56→17:51)
[2018-12-08] MEDS: NovoLOG Insulin Flexpen SUBQ SCH ×5 (05:59→23:48)
[2018-12-08 08:00] VITALS: BP 133/84
[2018-12-08] MEDS: Carvedilol 6.25mg Tab PEG SCH ×2 (08:58→20:54)
[2018-12-08] MEDS: Bacitracin Oint UD TOPIC SCH ×2 (08:58→17:51)
[2018-12-08] MEDS: Aspirin Baby 81mg GT SCH (08:58)
--- NOTE | 2018-12-08 10:36 | GI Progress Note ---
Assessment/Plan Problems: (1) Foot ulcer ICD Codes: L97.509 - Non-pressure chronic ulcer of other part of unspecified foot with unspecified severity SNOMED: 63119484 Qualifiers: Qualified Codes: L97.511 - Non-pressure chronic ulcer of other part of right foot limited to breakdown of skin (2) DM (diabetes mellitus) ICD Codes: E11.9 - Type 2 diabetes mellitus without complications SNOMED: 12268807 (3) Transplant ICD Codes: Z94.9 - Transplanted organ and tissue status, unspecified SNOMED: 362103298 Status: stable Status Narrative Discussed with Dr. Escalera. Assessment/Plan History of liver transplant, currently on Prograf C. difficile negative status post tracheostomy and PEG Infected G-tube site, fu ID recs ok to continue GTFs GT site care BID/prn topical abx around GT site HD per nephro supportive care cont tacrolimus prn transfusions ppi zofran prn Titrate bowel regimen follow labs The patient was seen and examined at bedside and all new and available data was reviewed in the patients chart. I agree with the above findings, impression and plan. (Patient seen earlier today. Signature stamp does not reflect patient encounter time.). - Jorge Escalera MD Subjective Subjective Limited, complaint of pain around GT site Objective Last 24 Hour Vital Signs Date Time Temp Pulse Resp B/P (MAP) Pulse Ox O2 Delivery O2 Flow Rate FiO2 12/08/18 09:01 71 22 40 12/08/18 08:58 71 133/84 12/08/18 08:00 97.2 71 24 133/84 (100) 100 12/08/18 08:00 40 12/08/18 08:00 Mechanical Ventilator 12/08/18 07:44 74 12/08/18 07:03 75 24 40 12/08/18 05:56 158/83 12/08/18 05:20 76 25 40 12/08/18 04:00 73 12/08/18 04:00 97.3 73 24 158/83 (108) 100 12/08/18 04:00 Mechanical Ventilator 12/08/18 04:00 40 12/08/18 03:06 73 23 40 12/08/18 01:23 97.0 12/08/18 01:03 71 24 40 12/08/18 00:00 69 12/08/18 00:00 Mechanical Ventilator 12/08/18 00:00 97.1 70 23 120/65 (83) 100 12/07/18 23:02 72 21 40 12/07/18 21:21 82 127/57 12/07/18 21:01 78 25 40 12/07/18 20:00 79 12/07/18 20:00 Mechanical Ventilator 12/07/18 20:00 97.0 82 22 127/57 (80) 100 12/07/18 20:00 40 12/07/18 19:03 80 24 40 12/07/18 17:42 111/49 12/07/18 17:10 74 22 40 12/07/18 16:00 68 12/07/18 16:00 Mechanical Ventilator 12/07/18 16:00 40 12/07/18 16:00 97.7 81 27 111/49 (69) 100 12/07/18 15:38 73 24 40 12/07/18 12:00 40 12/07/18 12:00 Mechanical Ventilator 12/07/18 12:00 97.0 70 20 113/69 (84) 100 12/07/18 12:00 68 12/07/18 11:59 65 22 40 12/07/18 11:56 152/82 12/07/18 11:14 64 22 40 Intake and Output 12/07/18 12/08/18 19:00 07:00 Intake Total 325 ml 255 ml Balance 325 ml 255 ml Free Water 200 ml 100 ml Tube Feeding 125 ml 155 ml # Bowel Movements 2 1 Height (Feet): 5 Height (Inches): 5.00 Weight (Pounds): 214 General Appearance: WD/WN, no apparent distress, alert Cardiovascular: normal rate Respiratory/Chest: normal breath sounds, no respiratory distress Abdominal Exam: normal bowel sounds, non tender, soft, GT site - Erythema and tenderness Extremities: non-tender Kelvin Briggs [employer] Dec 08, 2018 10:36
[2018-12-08 11:45] VITALS: BP 114/82
--- NOTE | 2018-12-08 13:47 | Pulmonology Progress Note ---
Assessment/Plan Assessment/Plan 1. Resp failure, hypercapneic 2. End-stage renal disease, on dialysis, status post multiple upper extremity vascular procedures. 3. Coronary artery bypass surgery. 4. Diabetes. 5. Dysphonia, tongue swelling, resolved; s/p trach PLAN: not tolerating weaning tolerates feeds GI and podiatry to address complaints disc w RN dc when bed available Subjective Constitutional: Reports: other - pain at GT site and heel Allergies: Coded Allergies: CEPHALEXIN (Unverified Allergy, Unknown, 02/24/14) SULFAMETHOXAZOLE (Unverified Allergy, Unknown, 02/24/14) TRIMETHOPRIM (Unverified Allergy, Unknown, 02/24/14) Objective Last 24 Hour Vital Signs Date Time Temp Pulse Resp B/P (MAP) Pulse Ox O2 Delivery O2 Flow Rate FiO2 12/08/18 13:20 76 25 40 12/08/18 12:00 40 12/08/18 12:00 Mechanical Ventilator 12/08/18 12:00 70 12/08/18 11:58 114/82 12/08/18 11:45 97.5 76 28 114/82 (93) 100 12/08/18 11:33 73 27 40 12/08/18 10:55 71 29 40 12/08/18 09:01 71 22 40 12/08/18 08:58 71 133/84 12/08/18 08:00 97.2 71 24 133/84 (100) 100 12/08/18 08:00 40 12/08/18 08:00 Mechanical Ventilator 12/08/18 07:44 74 12/08/18 07:03 75 24 40 12/08/18 05:56 158/83 12/08/18 05:20 76 25 40 12/08/18 04:00 73 12/08/18 04:00 97.3 73 24 158/83 (108) 100 12/08/18 04:00 Mechanical Ventilator 12/08/18 04:00 40 12/08/18 03:06 73 23 40 12/08/18 01:23 97.0 12/08/18 01:03 71 24 40 12/08/18 00:00 69 12/08/18 00:00 Mechanical Ventilator 12/08/18 00:00 97.1 70 23 120/65 (83) 100 12/07/18 23:02 72 21 40 12/07/18 21:21 82 127/57 12/07/18 21:01 78 25 40 12/07/18 20:00 79 12/07/18 20:00 Mechanical Ventilator 12/07/18 20:00 97.0 82 22 127/57 (80) 100 12/07/18 20:00 40 12/07/18 19:03 80 24 40 12/07/18 17:42 111/49 12/07/18 17:10 74 22 40 12/07/18 16:00 68 12/07/18 16:00 Mechanical Ventilator 12/07/18 16:00 40 12/07/18 16:00 97.7 81 27 111/49 (69) 100 12/07/18 15:38 73 24 40 Intake and Output 12/07/18 12/08/18 18:59 06:59 Intake Total 300 ml 265 ml Balance 300 ml 265 ml Free Water 200 ml 100 ml Tube Feeding 100 ml 165 ml # Bowel Movements 2 1 Objective trach on vent General Appearance: no acute distress Respiratory/Chest: lungs clear Cardiovascular: normal rate Current Medications Medications (Trade) Dose Ordered Sig/Aleks Route PRN Reason Start Time Stop Time Status Last Admin Dose Admin Acetaminophen (Tylenol) 650 mg Q4H PRN NG Mild Pain/Temp > 100.5 11/12/18 19:00 12/12/18 18:47 11/28/18 05:31 Aspirin (ASA) 162 mg DAILY GT 12/08/18 09:00 12/20/18 08:59 12/08/18 08:58 Atorvastatin Calcium (Lipitor) 10 mg BEDTIME NG 12/01/18 21:00 12/21/18 20:59 12/07/18 21:20 Bacitracin (Bacitracin) 1 applic BID TOPIC 12/07/18 18:00 01/06/19 17:59 12/08/18 08:58 Carvedilol (Coreg) 6.25 mg EVERY 12 HOURS PEG 12/06/18 21:00 01/03/19 20:59 12/08/18 08:58 Clotrimazole (Lotrimin) 1 applic BID TOPIC 12/07/18 18:00 01/06/19 17:59 12/08/18 08:58 Dextrose (Dextrose 50%) 25 ml Q30M PRN IV Hypoglycemia 12/01/18 19:30 12/31/18 19:29 Dextrose (Dextrose 50%) 50 ml Q30M PRN IV Hypoglycemia 12/01/18 19:30 12/31/18 19:29 Docusate Sodium (Colace) 100 mg EVERY 8 HOURS PRN GT constipation 11/24/18 18:51 12/20/18 18:50 Hydralazine HCl (Apresoline) 10 mg Q6H PRN GT For High Blood Pressure 12/03/18 16:45 01/02/19 16:44 12/07/18 04:47 Hydromorphone HCl (Dilaudid) 1 mg Q4H PRN GT For Pain 12/07/18 11:30 12/14/18 11:29 12/08/18 10:53 Insulin Aspart (NovoLOG) EVERY 6 HOURS SUBQ 12/02/18 00:00 12/31/18 20:59 12/08/18 12:00 Lactulose (Cephulac) 20 gm THREE TIMES A DAY PRN GT Constipation 11/24/18 18:51 12/23/18 18:50 Lansoprazole (Prevacid) 30 mg BID GT 11/20/18 09:00 12/20/18 08:59 12/08/18 08:58 Nicotine (Nicoderm) 1 patch Q24H TDERMAL 12/01/18 22:15 12/21/18 22:14 12/07/18 22:32 Nitroglycerin (Nitro-Bid) 1 inch TID@0600,1200,1800 TOPIC 12/07/18 12:00 01/06/19 11:59 12/08/18 11:58 Olanzapine (ZyPREXA) 2.5 mg BEDTIME GT 12/05/18 21:00 12/13/18 20:59 12/07/18 21:21 Olanzapine (ZyPREXA) 2.5 mg Q6H PRN ORAL agitation 11/15/18 23:00 12/15/18 22:59 12/06/18 00:23 Polyethylene Glycol (Miralax) 17 gm DAILYPRN PRN NG Constipation 11/12/18 19:00 12/11/18 15:29 11/13/18 05:30 Sevelamer Carbonate (Renvela) 800 mg Q8HR GT 11/20/18 14:00 12/20/18 13:59 12/08/18 13:27 Tacrolimus (Prograf) 2 mg MoWeFr@0000,1200 ORAL 12/07/18 00:00 12/21/18 00:00 12/07/18 11:55 Tacrolimus (Prograf) 2 mg SuTuThSa@0900,2100 ORAL 12/05/18 21:00 01/04/19 20:59 12/08/18 08:58 Saroj Mendoza MD Dec 08, 2018 13:47
--- NOTE | 2018-12-08 14:26 | Psych Consult Progress Note ---
Psychiatry Progress Note Psychiatry Progress Note Subjective the pt cont to have diff processing info, the pts agitation is improved however he still falls asleep several times during the day which is consistent with delirium Medications Current Medications Medications (Trade) Dose Ordered Sig/Aleks Route PRN Reason Start Time Stop Time Status Last Admin Dose Admin Acetaminophen (Tylenol) 650 mg Q4H PRN NG Mild Pain/Temp > 100.5 11/12/18 19:00 12/12/18 18:47 11/28/18 05:31 Aspirin (ASA) 162 mg DAILY GT 12/08/18 09:00 12/20/18 08:59 12/08/18 08:58 Atorvastatin Calcium (Lipitor) 10 mg BEDTIME NG 12/01/18 21:00 12/21/18 20:59 12/07/18 21:20 Bacitracin (Bacitracin) 1 applic BID TOPIC 12/07/18 18:00 01/06/19 17:59 12/08/18 08:58 Carvedilol (Coreg) 6.25 mg EVERY 12 HOURS PEG 12/06/18 21:00 01/03/19 20:59 12/08/18 08:58 Clotrimazole (Lotrimin) 1 applic BID TOPIC 12/07/18 18:00 01/06/19 17:59 12/08/18 08:58 Dextrose (Dextrose 50%) 25 ml Q30M PRN IV Hypoglycemia 12/01/18 19:30 12/31/18 19:29 Dextrose (Dextrose 50%) 50 ml Q30M PRN IV Hypoglycemia 12/01/18 19:30 12/31/18 19:29 Docusate Sodium (Colace) 100 mg EVERY 8 HOURS PRN GT constipation 11/24/18 18:51 12/20/18 18:50 Hydralazine HCl (Apresoline) 10 mg Q6H PRN GT For High Blood Pressure 12/03/18 16:45 01/02/19 16:44 12/07/18 04:47 Hydromorphone HCl (Dilaudid) 1 mg Q4H PRN GT For Pain 12/07/18 11:30 12/14/18 11:29 12/08/18 10:53 Insulin Aspart (NovoLOG) EVERY 6 HOURS SUBQ 12/02/18 00:00 12/31/18 20:59 12/08/18 12:00 Lactulose (Cephulac) 20 gm THREE TIMES A DAY PRN GT Constipation 11/24/18 18:51 12/23/18 18:50 Lansoprazole (Prevacid) 30 mg BID GT 11/20/18 09:00 12/20/18 08:59 12/08/18 08:58 Nicotine (Nicoderm) 1 patch Q24H TDERMAL 12/01/18 22:15 12/21/18 22:14 12/07/18 22:32 Nitroglycerin (Nitro-Bid) 1 inch TID@0600,1200,1800 TOPIC 12/07/18 12:00 01/06/19 11:59 12/08/18 11:58 Olanzapine (ZyPREXA) 2.5 mg BEDTIME GT 12/05/18 21:00 12/13/18 20:59 12/07/18 21:21 Olanzapine (ZyPREXA) 2.5 mg Q6H PRN ORAL agitation 11/15/18 23:00 12/15/18 22:59 12/06/18 00:23 Polyethylene Glycol (Miralax) 17 gm DAILYPRN PRN NG Constipation 11/12/18 19:00 12/11/18 15:29 11/13/18 05:30 Sevelamer Carbonate (Renvela) 800 mg Q8HR GT 11/20/18 14:00 12/20/18 13:59 12/08/18 13:27 Tacrolimus (Prograf) 2 mg MoWeFr@0000,1200 ORAL 12/07/18 00:00 12/21/18 00:00 12/07/18 11:55 Tacrolimus (Prograf) 2 mg SuTuThSa@0900,2100 ORAL 12/05/18 21:00 01/04/19 20:59 12/08/18 08:58 Allergies: Coded Allergies: CEPHALEXIN (Unverified Allergy, Unknown, 02/24/14) SULFAMETHOXAZOLE (Unverified Allergy, Unknown, 02/24/14) TRIMETHOPRIM (Unverified Allergy, Unknown, 02/24/14) Objective Data Height (Feet): 5 Height (Inches): 5.00 Weight (Pounds): 214 General Appearance: no apparent distress, alert Appearance: disheveled Behavior Mannerisms: good eye contact Mental Status Exam - Affect: constricted Mental Status Exam - Mood: anxious Mental Status Exam - Thought P: illogical Mental Status Exam - Thought C: no abnormalities Mental Status Exam - Suicidal: not present Assessment/Plan Problem List: (1) Encephalopathy acute ICD Codes: G93.40 - Encephalopathy, unspecified SNOMED: [id number], [id number] Status: stable Plan: Zyprexa 2.5mg po qhs haldol IM prn the pt lacks capacity ativan 1mg gt prior to weaning off from vent MRI to rule out stroke however the pt is intubated Jeffrey Lala MD Dec 08, 2018 14:26
--- NOTE | 2018-12-08 15:29 | Nephrology Progress Note ---
Assessment/Plan Problem List: (1) ESRD (end stage renal disease) on dialysis (2) Foot ulcer (3) CHF (congestive heart failure) Assessment: Ej Fx 20 % (4) Pacemaker (5) Acute respiratory failure Assessment: with Co2 retention Assessment ESRD with high K and SOB on admit Foot ulcer, likely infected High Troponin likely NSTMI Pacer , Pleural effusion s/p CABGS s/p Liver transplant Plan GT site infection, wait for ID advise Neuro note appreciated PT ordered patient refuses CT pain med change to dilaudid GT Now has tracheostomy and PEG Adjust BP meds add nitro paste TID HD next Antibiotics by ID start tube feeding / hasPEG per cardio and ID Podiatry and Vascular surgical fu ? DC planning? ALSO COVERING MEDCINE FOR DR BERG Subjective ROS Limited/Unobtainable: No Objective Objective Last 24 Hour Vital Signs Date Time Temp Pulse Resp B/P (MAP) Pulse Ox O2 Delivery O2 Flow Rate FiO2 12/08/18 15:19 73 23 40 12/08/18 13:20 76 25 40 12/08/18 12:00 40 12/08/18 12:00 Mechanical Ventilator 12/08/18 12:00 70 12/08/18 11:58 114/82 12/08/18 11:45 97.5 76 28 114/82 (93) 100 12/08/18 11:33 73 27 40 12/08/18 10:55 71 29 40 12/08/18 09:01 71 22 40 12/08/18 08:58 71 133/84 12/08/18 08:00 97.2 71 24 133/84 (100) 100 12/08/18 08:00 40 12/08/18 08:00 Mechanical Ventilator 12/08/18 07:44 74 12/08/18 07:03 75 24 40 12/08/18 05:56 158/83 12/08/18 05:20 76 25 40 12/08/18 04:00 73 12/08/18 04:00 97.3 73 24 158/83 (108) 100 12/08/18 04:00 Mechanical Ventilator 12/08/18 04:00 40 12/08/18 03:06 73 23 40 12/08/18 01:23 97.0 12/08/18 01:03 71 24 40 12/08/18 00:00 69 12/08/18 00:00 Mechanical Ventilator 12/08/18 00:00 97.1 70 23 120/65 (83) 100 12/07/18 23:02 72 21 40 12/07/18 21:21 82 127/57 12/07/18 21:01 78 25 40 12/07/18 20:00 79 12/07/18 20:00 Mechanical Ventilator 12/07/18 20:00 97.0 82 22 127/57 (80) 100 12/07/18 20:00 40 12/07/18 19:03 80 24 40 12/07/18 17:42 111/49 12/07/18 17:10 74 22 40 12/07/18 16:00 68 12/07/18 16:00 Mechanical Ventilator 12/07/18 16:00 40 12/07/18 16:00 97.7 81 27 111/49 (69) 100 12/07/18 15:38 73 24 40 Intake and Output 12/07/18 12/08/18 18:59 06:59 Intake Total 300 ml 265 ml Balance 300 ml 265 ml Free Water 200 ml 100 ml Tube Feeding 100 ml 165 ml # Bowel Movements 2 1 Height (Feet): 5 Height (Inches): 5.00 Weight (Pounds): 214 General Appearance: no apparent distress Cardiovascular: normal rate Respiratory/Chest: decreased breath sounds Abdomen: soft Objective no other change Nakul Stevens MD Dec 08, 2018 15:29
--- NOTE | 2018-12-08 15:58 | Infectious Diseases Prog Note ---
Assessment/Plan Problems: (1) G-tube site cellulitis Assessment & Plan: await culture from the site , continue local antibiotics as per GI (2) Thrush, oral Assessment & Plan: continue local nystatin , S/P micafungin for three weeks empirically (3) HCV antibody positive Assessment & Plan: no evidence of active infection, with undetectable viral load , suspect due to previous infection , cleared, S/P liver transplant . (4) Foot ulcer Assessment & Plan: in diabetic patient , with MRSA , S/P vancomycin treatment with HD for two weeks , pending vascular eval and possible surgical debridement. bone scan ruled out osteomyelitis of the heel . 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 now improving, pulmonary is following (9) Pleural effusion Assessment & Plan: recurrent on the right, with lung collapse , S/P thoracentesis X2 with removal of 1.5 cc of clear fluids. PREVIOUS culture were negative with negative cytology Subjective Constitutional: Reports: no symptoms HEENT: Reports: no symptoms Respiratory: Reports: no symptoms Breasts: Reports: no symptoms Cardiovascular: Reports: no symptoms Gastrointestinal/Abdominal: Reports: no symptoms Genitourinary: Reports: no symptoms Neurologic: Reports: no symptoms Psychiatric: Reports: no symptoms Skin: Reports: no symptoms Endocrine: Reports: no symptoms Hematologic: Reports: no symptoms Musculoskeletal: Reports: no symptoms Allergies: Coded Allergies: CEPHALEXIN (Unverified Allergy, Unknown, 02/24/14) SULFAMETHOXAZOLE (Unverified Allergy, Unknown, 02/24/14) TRIMETHOPRIM (Unverified Allergy, Unknown, 02/24/14) Subjective he was comfortable, has no facial swelling and mild tongue swelling , awake and responsive, no fever or chills, no significant secretions , no SOB . has less thrush on his tongue Objective Vital Signs Last 24 Hour Vital Signs Date Time Temp Pulse Resp B/P (MAP) Pulse Ox O2 Delivery O2 Flow Rate FiO2 12/08/18 15:19 73 23 40 12/08/18 13:20 76 25 40 12/08/18 12:00 40 12/08/18 12:00 Mechanical Ventilator 12/08/18 12:00 70 12/08/18 11:58 114/82 12/08/18 11:45 97.5 76 28 114/82 (93) 100 12/08/18 11:33 73 27 40 12/08/18 10:55 71 29 40 12/08/18 09:01 71 22 40 12/08/18 08:58 71 133/84 12/08/18 08:00 97.2 71 24 133/84 (100) 100 12/08/18 08:00 40 12/08/18 08:00 Mechanical Ventilator 12/08/18 07:44 74 12/08/18 07:03 75 24 40 12/08/18 05:56 158/83 12/08/18 05:20 76 25 40 12/08/18 04:00 73 12/08/18 04:00 97.3 73 24 158/83 (108) 100 12/08/18 04:00 Mechanical Ventilator 12/08/18 04:00 40 12/08/18 03:06 73 23 40 12/08/18 01:23 97.0 12/08/18 01:03 71 24 40 12/08/18 00:00 69 12/08/18 00:00 Mechanical Ventilator 12/08/18 00:00 97.1 70 23 120/65 (83) 100 12/07/18 23:02 72 21 40 12/07/18 21:21 82 127/57 12/07/18 21:01 78 25 40 12/07/18 20:00 79 12/07/18 20:00 Mechanical Ventilator 12/07/18 20:00 97.0 82 22 127/57 (80) 100 12/07/18 20:00 40 12/07/18 19:03 80 24 40 12/07/18 17:42 111/49 12/07/18 17:10 74 22 40 12/07/18 16:00 68 12/07/18 16:00 Mechanical Ventilator 12/07/18 16:00 40 12/07/18 16:00 97.7 81 27 111/49 (69) 100 Height (Feet): 5 Height (Inches): 5.00 Weight (Pounds): 214 General Appearance: WD/WN, no acute distress HEENT: normocephalic, atraumatic, anicteric, mucous membranes moist, PERRL, EOMI, pharynx normal, supple, no JVD, status post trach Respiratory/Chest: chest wall non-tender, no respiratory distress, no accessory muscle use, decreased breath sounds, accessory muscle use Cardiovascular: normal peripheral pulses, normal rate, regular rhythm, regularly irregular, no gallop/murmur, no JVD Abdomen: normal bowel sounds, soft, non tender, no organomegaly, non distended , no mass, no scars Genitourinary: normal external genitalia Extremities: no cyanosis, no clubbing Skin: no rash, no lesions, no ulcers 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, alert, responsive Lymphatic: no neck adenopathy Musculoskeletal: normal muscle bulk, no effusion Current Medications Medications (Trade) Dose Ordered Sig/Aleks Route PRN Reason Start Time Stop Time Status Last Admin Dose Admin Acetaminophen (Tylenol) 650 mg Q4H PRN NG Mild Pain/Temp > 100.5 11/12/18 19:00 12/12/18 18:47 11/28/18 05:31 Aspirin (ASA) 162 mg DAILY GT 12/08/18 09:00 12/20/18 08:59 12/08/18 08:58 Atorvastatin Calcium (Lipitor) 10 mg BEDTIME NG 12/01/18 21:00 12/21/18 20:59 12/07/18 21:20 Bacitracin (Bacitracin) 1 applic BID TOPIC 12/07/18 18:00 01/06/19 17:59 12/08/18 08:58 Carvedilol (Coreg) 6.25 mg EVERY 12 HOURS PEG 12/06/18 21:00 01/03/19 20:59 12/08/18 08:58 Clotrimazole (Lotrimin) 1 applic BID TOPIC 12/07/18 18:00 01/06/19 17:59 12/08/18 08:58 Dextrose (Dextrose 50%) 25 ml Q30M PRN IV Hypoglycemia 12/01/18 19:30 12/31/18 19:29 Dextrose (Dextrose 50%) 50 ml Q30M PRN IV Hypoglycemia 12/01/18 19:30 12/31/18 19:29 Docusate Sodium (Colace) 100 mg EVERY 8 HOURS PRN GT constipation 11/24/18 18:51 12/20/18 18:50 Hydralazine HCl (Apresoline) 10 mg Q6H PRN GT For High Blood Pressure 12/03/18 16:45 01/02/19 16:44 12/07/18 04:47 Hydromorphone HCl (Dilaudid) 1 mg Q4H PRN GT For Pain 12/07/18 11:30 12/14/18 11:29 12/08/18 15:51 Insulin Aspart (NovoLOG) EVERY 6 HOURS SUBQ 12/02/18 00:00 12/31/18 20:59 12/08/18 12:00 Lactulose (Cephulac) 20 gm THREE TIMES A DAY PRN GT Constipation 11/24/18 18:51 12/23/18 18:50 Lansoprazole (Prevacid) 30 mg BID GT 11/20/18 09:00 12/20/18 08:59 12/08/18 08:58 Nicotine (Nicoderm) 1 patch Q24H TDERMAL 12/01/18 22:15 12/21/18 22:14 12/07/18 22:32 Nitroglycerin (Nitro-Bid) 1 inch TID@0600,1200,1800 TOPIC 12/07/18 12:00 01/06/19 11:59 12/08/18 11:58 Olanzapine (ZyPREXA) 2.5 mg BEDTIME GT 12/05/18 21:00 12/13/18 20:59 12/07/18 21:21 Olanzapine (ZyPREXA) 2.5 mg Q6H PRN ORAL agitation 11/15/18 23:00 12/15/18 22:59 12/06/18 00:23 Polyethylene Glycol (Miralax) 17 gm DAILYPRN PRN NG Constipation 11/12/18 19:00 12/11/18 15:29 11/13/18 05:30 Sevelamer Carbonate (Renvela) 800 mg Q8HR GT 11/20/18 14:00 12/20/18 13:59 12/08/18 13:27 Tacrolimus (Prograf) 2 mg MoWeFr@0000,1200 ORAL 12/07/18 00:00 12/21/18 00:00 12/07/18 11:55 Tacrolimus (Prograf) 2 mg Johnny@0900,2100 ORAL 12/05/18 21:00 01/04/19 20:59 12/08/18 08:58 Francois Landis M.D. Dec 08, 2018 15:58
[2018-12-08 16:00] VITALS: BP 158/73
--- NOTE | 2018-12-08 16:27 | Cardiac Electrophysiology PN ---
Assessment/Plan Assessment/Plan 1. Troponin leak with no chest pain. Due to renal failure. On Coreg 3.125 mg bid, aspirin and Lipitor 2. S/P CABG 3. Nonsustained ventricular tachycardia. Hx of old VT and CABG. EF 55%. No Syncope 4. Congestive heart failure. On hemodialysis 5. End-stage renal disease, on hemodialysis per Dr. Stevens 6. Status post right sided Medtronic dual chamber pacemaker with Nl Fx. 7. Right foot ulcer. Antibiotic per Dr. Landis. FU by Dr. Huizar 8. History of liver transplant on Prograf 9. Respiratory failure, S/P tracheostomy. 10. Pleural effusion. FU Dr. Mendoza 11. Dysphagia, S/P PEG DW RN Subjective Subjective On the vent via tracheostomy.Alert and responsive. Awaiting placement Objective Last 24 Hour Vital Signs Date Time Temp Pulse Resp B/P (MAP) Pulse Ox O2 Delivery O2 Flow Rate FiO2 12/08/18 16:00 40 12/08/18 16:00 Mechanical Ventilator 12/08/18 15:19 73 23 40 12/08/18 13:20 76 25 40 12/08/18 12:00 40 12/08/18 12:00 Mechanical Ventilator 12/08/18 12:00 70 12/08/18 11:58 114/82 12/08/18 11:45 97.5 76 28 114/82 (93) 100 12/08/18 11:33 73 27 40 12/08/18 10:55 71 29 40 12/08/18 09:01 71 22 40 12/08/18 08:58 71 133/84 12/08/18 08:00 97.2 71 24 133/84 (100) 100 12/08/18 08:00 40 12/08/18 08:00 Mechanical Ventilator 12/08/18 07:44 74 12/08/18 07:03 75 24 40 12/08/18 05:56 158/83 12/08/18 05:20 76 25 40 12/08/18 04:00 73 12/08/18 04:00 97.3 73 24 158/83 (108) 100 12/08/18 04:00 Mechanical Ventilator 12/08/18 04:00 40 12/08/18 03:06 73 23 40 12/08/18 01:23 97.0 12/08/18 01:03 71 24 40 12/08/18 00:00 69 12/08/18 00:00 Mechanical Ventilator 12/08/18 00:00 97.1 70 23 120/65 (83) 100 12/07/18 23:02 72 21 40 12/07/18 21:21 82 127/57 12/07/18 21:01 78 25 40 12/07/18 20:00 79 12/07/18 20:00 Mechanical Ventilator 12/07/18 20:00 97.0 82 22 127/57 (80) 100 12/07/18 20:00 40 12/07/18 19:03 80 24 40 12/07/18 17:42 111/49 12/07/18 17:10 74 22 40 Intake and Output 12/07/18 12/08/18 18:59 06:59 Intake Total 300 ml 265 ml Balance 300 ml 265 ml Free Water 200 ml 100 ml Tube Feeding 100 ml 165 ml # Bowel Movements 2 1 Objective HEAD AND NECK: No JVD.Tracheostomy intact LUNGS: Clear CARDIOVASCULAR: Regular S1 and S2 with no gallop. Sternotomy is intact Pacemaker in the right subclavian ABDOMEN: Soft.PEG in place EXTREMITIES: 1+ pitting edema Shivam Sharpe MD Dec 08, 2018 16:27
[2018-12-08 20:00] VITALS: BP 143/71
[2018-12-08] MEDS: OLANZapine 2.5mg tab GT SCH (20:52)
--- NOTE | 2018-12-08 21:47 | Neurology Progress Note ---
Interim History Interim History Interim History Mr. Restrepo feels unwell today. His right foot has been more painful. The mind has been relatively clear but not as good as yesterday. He has been in bed for a prolonged period of time and has not sat in a chair or walked for ages. He denies any new neurologic symptoms. Review of Systems Neuro Review of Systems Benign. Objective Physical Exam Last Vital Signs Date Time Temp Pulse Resp B/P (MAP) Pulse Ox O2 Delivery O2 Flow Rate FiO2 12/08/18 21:28 68 22 40 12/08/18 20:54 143/72 12/08/18 20:30 98.4 12/08/18 16:00 99 12/08/18 16:00 Mechanical Ventilator Neurologic Exam Objective PHYSICAL EXAMINATION: GENERAL: He is a well-developed and well-nourished, pleasant gentleman, lying in bed connected to a ventilator via tracheostomy. HEAD: Normocephalic and atraumatic. EENT: Examination benign. NECK: No neck rigidity was observed. He did have a tracheostomy. NEUROLOGICAL EXAMINATION: MENTAL STATUS EXAMINATION: He was awake and alert. He was oriented to person, place, and time, except for the exact date. He was able to recall 3/3 words immediately, after 1 minute, and after 3 minutes on the second trial. He was able to remember president Emi through Mak Keny. His mathematical skills were minimally impaired. His visuospatial function was preserved. SPEECH: Could not be tested, but he was able to mouth words relatively well. LANGUAGE: He was able to comprehend and express himself relatively well. CRANIAL NERVES EXAMINATION: II: The visual mckeon were intact to confrontation testing. III, IV & : The external ocular movements were full and the pupils 3 mm in diameter, equal, round, regular, and reactive sluggishly to light. V: He had normal facial sensations, and the temporales, masseters, and pterygoids functioned normally. VII: He had normal facial expressions and no facial asymmetry. VIII: Hearing was decreased bilaterally with worse hearing on the left side compared to the right. IX: The palate moved symmetrically on phonation. X: Could not be tested. XI: The sternocleidomastoids and trapezii functioned normally. XII: The tongue was in the midline without any fasciculations or atrophy. MOTOR SYSTEM: The tone was normal in all four extremities. Examination of muscle mass revealed generalized muscle wasting. Examination of power revealed G 5/5 power except for G 4+/5 power in the iliopsoas muscles bilaterally. SENSORY EXAMINATION: He had intact sensations to light touch. Other sensory modalities could not be tested adequately. REFLEXES: 1+ and bilaterally symmetrical at the biceps, triceps, brachioradialis , and knees, 0 at both ankles. The plantar responses were flexor bilaterally. COORDINATION: He performed well on [id number] testing. STANCE & GAIT: Were deferred. Impression/Recommendations Diagnostic Impression 1. Mr. Gregg Restrepo is a 68-year-old, right-handed, gentleman with past history of multiple medical problems including hypertension, diabetes mellitus, end-stage renal disease for which he is hemodialysis dependent, prior episodes of sepsis, and prior episodes of encephalopathy, who was admitted to [facility] on October 31, 2018. Following that, he has had a stormy hospital course including pneumonia and sepsis, right foot infection, respiratory failure for which he has needed tracheostomy and in addition he has exhibited an alteration in his mental state with some waxing and waning of his mental state. 2. He feels unwell today. His right foot has been more painful. The mind has been relatively clear but not as good as yesterday. He has been in bed for a prolonged period of time and has not sat in a chair or walked for ages. He denies any new neurologic symptoms. 3. On neurological examination, at this time, he is well oriented except for the exact date, has mild problems with recent and remote memory, normal visuospatial function, minimally impaired higher cognitive function, and is able to comprehend and express himself well. He does have mild G 4+/5 weakness in the iliopsoas muscles bilaterally, globally diminished deep tendon reflexes with loss of ankle jerks, but no definite focal or lateralizing neurological findings. 4. His latest laboratory data on my initial evaluation revealed that he was anemic with a hemoglobin of 10.8 G. His last blood gas performed on 11/14/2018 revealed that he had a pCO2 elevated at 56.4 with a normal pO2 of 88.3 and normal pH of 7.37. His latest chemistry panel revealed that he was mildly hyponatremic with a sodium of 130, and had a chloride of 90. The BUN was elevated at 75, creatinine elevated at 7.4, glucose elevated at 156, Hemoglobin A1c elevated at 6.9%, Alkaline phosphatase elevated at 131, and ProBNP greater than 35,000. His last B12 level on 11/07/2018 was 723. His last folate on was 18.6. His last TSH on 12/06/2018 was 4.82, which is minimally elevated. 5. The CT scan of the brain performed on 11/10/2018 was benign for acute intracranial pathology. 6. The patient's history and neurological examination are most consistent with mild multifactorial encephalopathy, which apparently waxes and wanes, but no definite focal neurological dysfunction. His encephalopathy is minimally worse today. Recommendations 1. Continue present management. 2. Will review EEG that was just completed. 3. Attempts should be made to correct the patient's toxic metabolic imbalances that have already been observed. 4. Observe. 5. Mobilize with PT/OT. Pantera Cool M.D., M.S.P.H. Pantera Cool MD Dec 08, 2018 21:47
--- NOTE | 2018-12-08 22:30 | Electroencephalogram ---
ELECTROENCEPHALOGRAM REPORT DATE OF PROCEDURE: 12/08/2018 REQUESTING PHYSICIAN: Nakul Stevens M.D. READING PHYSICIAN: Pantera Cool M.D. HISTORY: This EEG was performed on a 68-year-old gentleman with a history of multiple medical problems, who has been exhibiting some waxing and waning of his mental state. The purpose of this EEG was to evaluate the patient for the degree and type of cerebral dysfunction. TECHNICAL NOTE: This EEG was performed on [employer] with electrodes placed on the scalp according to the International 10-20 system. [id number] and [id number]-[id number] montages were used. The EEG was technically satisfactory and was performed in the awake and drowsy states. OBSERVATIONS: In the best awake state, the background activity consisted of 8.5-9 Hz posteriorly predominant well-developed alpha waveforms, which attenuated on eye opening. Drowsiness was characterized by dissolution of the alpha rhythm and appearance of slower frequencies in the 5-6 Hz theta range. During drowsiness, left temporal polymorphic delta activity was noted. No epileptiform discharges were seen. IMPRESSION: This is an abnormal EEG characterized by left temporal polymorphic delta activity seen during drowsiness. COMMENT: This study is consistent with focal dysfunction in the left temporal area. Pantera Cool M.D., M.S.P.H. DR: COLT JOB#: [id number] [email or web address]
[2018-12-09] VITALS: BP 137/82
[2018-12-09 04:00] VITALS: BP 147/78
[2018-12-09] MEDS: HYDROmorphone 2mg tab GT PRN ×4 (04:37→19:21)
[2018-12-09] MEDS: Renvela 800mg Pkt GT SCH ×3 (06:41→22:27)
[2018-12-09] MEDS: Nitroglycerin 2% oint pkt TOPIC SCH ×3 (06:42→17:08)
[2018-12-09] MEDS: NovoLOG Insulin Flexpen SUBQ SCH ×3 (06:52→17:15)
[2018-12-09 08:00] VITALS: BP 119/44
[2018-12-09] MEDS: Aspirin Baby 81mg GT SCH (08:03)
[2018-12-09] MEDS: Bacitracin Oint UD TOPIC SCH ×2 (08:03→17:08)
[2018-12-09] MEDS: Carvedilol 6.25mg Tab PEG SCH ×2 (08:03→21:07)
--- NOTE | 2018-12-09 10:01 | GI Progress Note ---
Assessment/Plan Problems: (1) Foot ulcer ICD Codes: L97.509 - Non-pressure chronic ulcer of other part of unspecified foot with unspecified severity SNOMED: 92592741 Qualifiers: Qualified Codes: L97.511 - Non-pressure chronic ulcer of other part of right foot limited to breakdown of skin (2) DM (diabetes mellitus) ICD Codes: E11.9 - Type 2 diabetes mellitus without complications SNOMED: 95209862 (3) Transplant ICD Codes: Z94.9 - Transplanted organ and tissue status, unspecified SNOMED: 917381397 Status: stable Status Narrative Discussed with Dr. Escalera Assessment/Plan History of liver transplant, currently on Prograf C. difficile negative status post tracheostomy and PEG Infected G-tube site, fu ID recs ok to continue GTFs GT site care BID/prn topical abx around GT site HD per nephro cont tacrolimus prn transfusions ppi zofran prn Titrate bowel regimen follow labs supportive care The patient was seen and examined at bedside and all new and available data was reviewed in the patients chart. I agree with the above findings, impression and plan. (Patient seen earlier today. Signature stamp does not reflect patient encounter time.). - Jorge Escalera MD Subjective Subjective Limited, complaint of pain around GT site Objective Last 24 Hour Vital Signs Date Time Temp Pulse Resp B/P (MAP) Pulse Ox O2 Delivery O2 Flow Rate FiO2 12/09/18 08:51 70 25 40 12/09/18 08:03 69 147/78 12/09/18 08:00 70 12/09/18 08:00 97.7 66 20 119/44 (69) 100 12/09/18 08:00 Mechanical Ventilator 12/09/18 08:00 40 12/09/18 06:55 69 23 40 12/09/18 06:42 147/78 12/09/18 05:19 71 22 40 12/09/18 05:10 97.2 12/09/18 04:00 88 12/09/18 04:00 40 12/09/18 04:00 Mechanical Ventilator 12/09/18 04:00 97.2 76 21 147/78 (101) 100 12/09/18 03:03 68 27 40 12/09/18 00:39 57 24 40 12/09/18 00:00 97.6 71 22 137/82 (100) 100 12/09/18 00:00 Mechanical Ventilator 12/09/18 00:00 65 12/09/18 00:00 40 12/08/18 23:26 65 26 40 12/08/18 21:28 68 22 40 12/08/18 20:54 71 143/72 12/08/18 20:00 72 12/08/18 20:00 40 12/08/18 20:00 98.3 73 24 143/71 (95) 99 12/08/18 20:00 Mechanical Ventilator 12/08/18 19:14 72 24 40 12/08/18 17:51 158/73 12/08/18 16:31 72 30 40 12/08/18 16:00 71 12/08/18 16:00 97.3 72 24 158/73 (101) 99 12/08/18 16:00 40 12/08/18 16:00 Mechanical Ventilator 12/08/18 15:19 73 23 40 12/08/18 13:20 76 25 40 12/08/18 12:00 40 12/08/18 12:00 Mechanical Ventilator 12/08/18 12:00 70 12/08/18 11:58 114/82 12/08/18 11:45 97.5 76 28 114/82 (93) 100 12/08/18 11:33 73 27 40 12/08/18 10:55 71 29 40 Intake and Output 12/08/18 12/09/18 19:00 07:00 Intake Total 580 ml 650 ml Balance 580 ml 650 ml Free Water 180 ml 110 ml Tube Feeding 400 ml 540 ml # Bowel Movements 1 1 Height (Feet): 5 Height (Inches): 5.00 Weight (Pounds): 218 General Appearance: WD/WN, no apparent distress, alert Cardiovascular: normal rate Respiratory/Chest: normal breath sounds, no respiratory distress Abdominal Exam: normal bowel sounds, non tender, soft, GT site - Erythema, tenderness Extremities: non-tender Kelvin Briggs METEOROLOGICAL TECHNICIAN Dec 09, 2018 10:01
[2018-12-09 10:10] LABS: BASOPHILS % (AUTO) 1.1 % (0.0-2.0); HEMATOCRIT 34.4 % (42.0-52.0); HEMOGLOBIN 10.7 G/DL (14.2-18.0); LYMPHOCYTES % (AUTO) 15.1 % (20.0-45.0); MEAN CORPUSCULAR VOLUME 80 FL (80-99); MONOCYTES % (AUTO) 7.2 % (1.0-10.0); NEUTROPHILS % (AUTO) 76.6 % (45.0-75.0); PLATELET COUNT 190 K/UL (150-450); RED BLOOD COUNT 4.32 M/UL (4.70-6.10); RED CELL DISTRIBUTION WIDTH 16.8 % (11.6-14.8)
[2018-12-09 10:41] LABS: ALANINE AMINOTRANSFERASE 10 U/L (12-78); ALBUMIN/GLOBULIN RATIO 0.5 (1.0-2.7); ALKALINE PHOSPHATASE 116 U/L (46-116); ANION GAP 15 mmol/L (5-15); ASPARTATE AMINO TRANSFERASE 13 U/L (15-37); BILIRUBIN,TOTAL 0.3 MG/DL (0.2-1.0); BLOOD UREA NITROGEN 77 mg/dL (7-18); CALCIUM 8.9 MG/DL (8.5-10.1); CARBON DIOXIDE 25 MMOL/L (21-32); CHLORIDE 90 MMOL/L (98-107); CREATININE 7.8 MG/DL (0.55-1.30); GAMMA GLUTAMYL TRANSPEPTIDASE 22 U/L (5-85); PHOSPHORUS 5.2 MG/DL (2.5-4.9); POTASSIUM 4.8 MMOL/L (3.5-5.1); SODIUM 130 MMOL/L (136-145)
[2018-12-09 12:00] VITALS: BP 133/103
--- NOTE | 2018-12-09 12:51 | Cardiac Electrophysiology PN ---
Assessment/Plan Assessment/Plan 1. Troponin leak with no chest pain. Due to renal failure. On Coreg 3.125 mg bid, aspirin and Lipitor 2. CAD S/P CABG 3. Nonsustained ventricular tachycardia in setting of old ME and CABG. EF 55%. No Syncope 4. Congestive heart failure. On hemodialysis 5. End-stage renal disease, on hemodialysis per Dr. Stevens 6. Status post right sided Medtronic dual chamber pacemaker with Nl Fx. 7. Right foot ulcer. Antibiotic per Dr. Landis. FU by Dr. Huizar 8. History of liver transplant on Prograf 9. Respiratory failure, S/P tracheostomy. 10. Pleural effusion. FU Dr. Mendoza 11. Dysphagia, S/P PEG DW RN Subjective Subjective On the vent via tracheostomy. Alert and responsive.Intermittent V pacing Objective Last 24 Hour Vital Signs Date Time Temp Pulse Resp B/P (MAP) Pulse Ox O2 Delivery O2 Flow Rate FiO2 12/09/18 12:31 133/103 12/09/18 12:00 Mechanical Ventilator 12/09/18 12:00 40 12/09/18 12:00 97.5 73 21 133/103 (113) 100 12/09/18 10:49 72 24 40 12/09/18 08:51 70 25 40 12/09/18 08:03 69 147/78 12/09/18 08:00 70 12/09/18 08:00 97.7 66 20 119/44 (69) 100 12/09/18 08:00 Mechanical Ventilator 12/09/18 08:00 40 12/09/18 06:55 69 23 40 12/09/18 06:42 147/78 12/09/18 05:19 71 22 40 12/09/18 05:10 97.2 12/09/18 04:00 88 12/09/18 04:00 40 12/09/18 04:00 Mechanical Ventilator 12/09/18 04:00 97.2 76 21 147/78 (101) 100 12/09/18 03:03 68 27 40 12/09/18 00:39 57 24 40 12/09/18 00:00 97.6 71 22 137/82 (100) 100 12/09/18 00:00 Mechanical Ventilator 12/09/18 00:00 65 12/09/18 00:00 40 12/08/18 23:26 65 26 40 4/23/19 21:28 68 22 40 12/08/18 20:54 71 143/72 12/08/18 20:00 72 12/08/18 20:00 40 12/08/18 20:00 98.3 73 24 143/71 (95) 99 12/08/18 20:00 Mechanical Ventilator 12/08/18 19:14 72 24 40 12/08/18 17:51 158/73 12/08/18 16:31 72 30 40 12/08/18 16:00 71 12/08/18 16:00 97.3 72 24 158/73 (101) 99 12/08/18 16:00 40 12/08/18 16:00 Mechanical Ventilator 12/08/18 15:19 73 23 40 12/08/18 13:20 76 25 40 Intake and Output 12/08/18 12/09/18 18:59 06:59 Intake Total 550 ml 650 ml Balance 550 ml 650 ml Free Water 180 ml 110 ml Tube Feeding 370 ml 540 ml # Bowel Movements 1 1 Laboratory Tests Test 12/09/18 09:45 White Blood Count 7.0 K/UL (4.8-10.8) Red Blood Count 4.32 M/UL (4.70-6.10) L Hemoglobin 10.7 G/DL (14.2-18.0) L Hematocrit 34.4 % (42.0-52.0) L Mean Corpuscular Volume 80 FL (80-99) Mean Corpuscular Hemoglobin 24.7 PG (27.0-31.0) L Mean Corpuscular Hemoglobin Concent 31.0 G/DL (32.0-36.0) L Red Cell Distribution Width 16.8 % (11.6-14.8) H Platelet Count 190 K/UL (150-450) Mean Platelet Volume 6.6 FL (6.5-10.1) Neutrophils (%) (Auto) 76.6 % (45.0-75.0) H Lymphocytes (%) (Auto) 15.1 % (20.0-45.0) L Monocytes (%) (Auto) 7.2 % (1.0-10.0) Eosinophils (%) (Auto) 0.0 % (0.0-3.0) Basophils (%) (Auto) 1.1 % (0.0-2.0) Sodium Level 130 MMOL/L (136-145) L Potassium Level 4.8 MMOL/L (3.5-5.1) Chloride Level 90 MMOL/L (98-107) L Carbon Dioxide Level 25 MMOL/L (21-32) Anion Gap 15 mmol/L (5-15) Blood Urea Nitrogen 77 mg/dL (7-18) H Creatinine 7.8 MG/DL (0.55-1.30) H Estimat Glomerular Filtration Rate 7.0 mL/min (>60) Glucose Level 134 MG/DL (74-106) H Uric Acid 5.4 MG/DL (2.6-7.2) Calcium Level 8.9 MG/DL (8.5-10.1) Phosphorus Level 5.2 MG/DL (2.5-4.9) H Magnesium Level 2.4 MG/DL (1.8-2.4) Total Bilirubin 0.3 MG/DL (0.2-1.0) Gamma Glutamyl Transpeptidase 22 U/L (5-85) Aspartate Amino Transf (AST/SGOT) 13 U/L (15-37) L Alanine Aminotransferase (ALT/SGPT) 10 U/L (12-78) L Alkaline Phosphatase 116 U/L (46-116) Troponin I 0.070 ng/mL (0.000-0.056) C-Reactive Protein, Quantitative 14.0 mg/dL (0.00-0.90) H Pro-B-Type Natriuretic Peptide > 44627 pg/mL (0-125) H Total Protein 6.1 G/DL (6.4-8.2) L Albumin 2.0 G/DL (3.4-5.0) L Globulin 4.1 g/dL Albumin/Globulin Ratio 0.5 (1.0-2.7) L Random Vancomycin Level 5.9 ug/mL Microbiology Date/Time Source Procedure Growth Status 12/08/18 01:00 Abdomen Gram Stain - Final Resulted 12/08/18 01:00 Wound Culture - Preliminary Gram Negative Bacillus 1 Resulted Objective HEAD AND NECK: No JVD.Tracheostomy intact LUNGS: Clear CARDIOVASCULAR: Irregular S1 and S2 with no gallop. Sternotomy is intact Pacemaker in the right subclavian ABDOMEN: Soft.PEG in place EXTREMITIES: 1+ pitting edema Shivam Sharpe MD Dec 09, 2018 12:51
--- NOTE | 2018-12-09 15:02 | Nephrology Progress Note ---
Assessment/Plan Problem List: (1) ESRD (end stage renal disease) on dialysis (2) Foot ulcer (3) CHF (congestive heart failure) Assessment: Ej Fx 20 % (4) Pacemaker (5) Acute respiratory failure Assessment: with Co2 retention Assessment ESRD with high K and SOB on admit Foot ulcer, likely infected High Troponin likely NSTMI Pacer , Pleural effusion s/p CABGS s/p Liver transplant Plan GT site infection, topical antibiotic Neuro note appreciated PT ordered patient refuses CT pain med change to dilaudid GT Now has tracheostomy and PEG Adjust BP meds add nitro paste TID HD next - in process- tolerating well Antibiotics by ID start tube feeding / hasPEG per cardio and ID Podiatry and Vascular surgical fu ? DC planning? ALSO COVERING MEDCINE FOR DR BERG Subjective ROS Limited/Unobtainable: No Objective Objective Last 24 Hour Vital Signs Date Time Temp Pulse Resp B/P (MAP) Pulse Ox O2 Delivery O2 Flow Rate FiO2 12/09/18 13:04 70 23 40 12/09/18 12:31 133/103 12/09/18 12:00 67 12/09/18 12:00 Mechanical Ventilator 12/09/18 12:00 40 12/09/18 12:00 97.5 73 21 133/103 (113) 100 12/09/18 10:49 72 24 40 12/09/18 08:51 70 25 40 12/09/18 08:03 69 147/78 12/09/18 08:00 70 12/09/18 08:00 97.7 66 20 119/44 (69) 100 12/09/18 08:00 Mechanical Ventilator 12/09/18 08:00 40 12/09/18 06:55 69 23 40 12/09/18 06:42 147/78 12/09/18 05:19 71 22 40 12/09/18 05:10 97.2 12/09/18 04:00 88 12/09/18 04:00 40 12/09/18 04:00 Mechanical Ventilator 12/09/18 04:00 97.2 76 21 147/78 (101) 100 12/09/18 03:03 68 27 40 12/09/18 00:39 57 24 40 12/09/18 00:00 97.6 71 22 137/82 (100) 100 4/24/19 00:00 Mechanical Ventilator 12/09/18 00:00 65 12/09/18 00:00 40 12/08/18 23:26 65 26 40 12/08/18 21:28 68 22 40 12/08/18 20:54 71 143/72 12/08/18 20:00 72 12/08/18 20:00 40 12/08/18 20:00 98.3 73 24 143/71 (95) 99 12/08/18 20:00 Mechanical Ventilator 12/08/18 19:14 72 24 40 12/08/18 17:51 158/73 12/08/18 16:31 72 30 40 12/08/18 16:00 71 12/08/18 16:00 97.3 72 24 158/73 (101) 99 12/08/18 16:00 40 12/08/18 16:00 Mechanical Ventilator 12/08/18 15:19 73 23 40 Intake and Output 12/08/18 12/09/18 18:59 06:59 Intake Total 550 ml 650 ml Balance 550 ml 650 ml Free Water 180 ml 110 ml Tube Feeding 370 ml 540 ml # Bowel Movements 1 1 Laboratory Tests 12/09/18 09:45: White Blood Count 7.0, Red Blood Count 4.32L, Hemoglobin 10.7L, Hematocrit 34.4L , Mean Corpuscular Volume 80, Mean Corpuscular Hemoglobin 24.7L, Mean Corpuscular Hemoglobin Concent 31.0L, Red Cell Distribution Width 16.8H, Platelet Count 190, Mean Platelet Volume 6.6, Neutrophils (%) (Auto) 76.6H, Lymphocytes (%) (Auto) 15.1L, Monocytes (%) (Auto) 7.2, Eosinophils (%) (Auto) 0.0, Basophils (%) (Auto) 1.1, Sodium Level 130L, Potassium Level 4.8, Chloride Level 90L, Carbon Dioxide Level 25, Anion Gap 15, Blood Urea Nitrogen 77H, Creatinine 7.8H, Estimat Glomerular Filtration Rate 7.0, Glucose Level 134H, Uric Acid 5.4, Calcium Level 8.9, Phosphorus Level 5.2H, Magnesium Level 2.4, Total Bilirubin 0.3, Gamma Glutamyl Transpeptidase 22, Aspartate Amino Transf ( AST/SGOT) 13L, Alanine Aminotransferase (ALT/SGPT) 10L, Alkaline Phosphatase 116 , Troponin I 0.070H, C-Reactive Protein, Quantitative 14.0H, Pro-B-Type Natriuretic Peptide > 66716H, Total Protein 6.1L, Albumin 2.0L, Globulin 4.1, Albumin/Globulin Ratio 0.5L, Random Vancomycin Level 5.9 Height (Feet): 5 Height (Inches): 5.00 Weight (Pounds): 218 General Appearance: no apparent distress Respiratory/Chest: decreased breath sounds Abdomen: soft Objective no other change Nakul Stevens MD Dec 09, 2018 15:02
[2018-12-09 16:00] VITALS: BP 116/60
--- NOTE | 2018-12-09 16:30 | Infectious Diseases Prog Note ---
Assessment/Plan Problems: (1) G-tube site cellulitis Assessment & Plan: await culture from the site , continue local antibiotics as per GI (2) Thrush, oral Assessment & Plan: continue local nystatin , S/P micafungin for three weeks empirically (3) HCV antibody positive Assessment & Plan: no evidence of active infection, with undetectable viral load , suspect due to previous infection , cleared, S/P liver transplant . (4) Foot ulcer Assessment & Plan: in diabetic patient , with MRSA , S/P vancomycin treatment with HD for two weeks , pending vascular eval and possible surgical debridement. bone scan ruled out osteomyelitis of the heel . follow up with transportation consultant (5) DM (diabetes mellitus) Assessment & Plan: recommend tight glycemic control to keep blood glucose between 100-140 (6) CHF (congestive heart failure) Assessment & Plan: on HD , renal is following, monitor daily weight (7) Encephalopathy acute Assessment & Plan: suspect metabolic, with high urea level, waxing and waning , now improved (8) Severe tongue swelling Assessment & Plan: improving , s/p tracheostomy to protect his airway since respiratory status worsened . now improving, pulmonary is following (9) Pleural effusion Assessment & Plan: recurrent on the right, with lung collapse , S/P thoracentesis X2 with removal of 1.5 cc of clear fluids. PREVIOUS culture were negative with negative cytology Subjective Constitutional: Reports: no symptoms HEENT: Reports: no symptoms Respiratory: Reports: no symptoms Breasts: Reports: no symptoms Cardiovascular: Reports: no symptoms Gastrointestinal/Abdominal: Reports: no symptoms Genitourinary: Reports: no symptoms Neurologic: Reports: no symptoms Psychiatric: Reports: no symptoms Skin: Reports: no symptoms Endocrine: Reports: no symptoms Hematologic: Reports: no symptoms Musculoskeletal: Reports: no symptoms Allergies: Coded Allergies: CEPHALEXIN (Unverified Allergy, Unknown, 02/24/14) SULFAMETHOXAZOLE (Unverified Allergy, Unknown, 02/24/14) TRIMETHOPRIM (Unverified Allergy, Unknown, 02/24/14) Subjective he was comfortable, has no facial swelling and mild tongue swelling , awake and responsive, no fever or chills, no significant secretions , no SOB . has less thrush on his tongue Objective Vital Signs Last 24 Hour Vital Signs Date Time Temp Pulse Resp B/P (MAP) Pulse Ox O2 Delivery O2 Flow Rate FiO2 12/09/18 16:00 Mechanical Ventilator 4/24/19 16:00 40 12/09/18 15:54 78 12/09/18 15:03 80 24 40 12/09/18 13:04 70 23 40 12/09/18 12:31 133/103 12/09/18 12:00 67 12/09/18 12:00 Mechanical Ventilator 12/09/18 12:00 40 12/09/18 12:00 97.5 73 21 133/103 (113) 100 12/09/18 10:49 72 24 40 12/09/18 08:51 70 25 40 12/09/18 08:03 69 147/78 12/09/18 08:00 70 12/09/18 08:00 97.7 66 20 119/44 (69) 100 12/09/18 08:00 Mechanical Ventilator 12/09/18 08:00 40 12/09/18 06:55 69 23 40 12/09/18 06:42 147/78 12/09/18 05:19 71 22 40 12/09/18 05:10 97.2 12/09/18 04:00 88 12/09/18 04:00 40 12/09/18 04:00 Mechanical Ventilator 12/09/18 04:00 97.2 76 21 147/78 (101) 100 12/09/18 03:03 68 27 40 12/09/18 00:39 57 24 40 12/09/18 00:00 97.6 71 22 137/82 (100) 100 12/09/18 00:00 Mechanical Ventilator 12/09/18 00:00 65 12/09/18 00:00 40 12/08/18 23:26 65 26 40 12/08/18 21:28 68 22 40 12/08/18 20:54 71 143/72 12/08/18 20:00 72 12/08/18 20:00 40 12/08/18 20:00 98.3 73 24 143/71 (95) 99 12/08/18 20:00 Mechanical Ventilator 12/08/18 19:14 72 24 40 12/08/18 17:51 158/73 12/08/18 16:31 72 30 40 Height (Feet): 5 Height (Inches): 5.00 Weight (Pounds): 218 General Appearance: WD/WN, no acute distress HEENT: normocephalic, atraumatic, anicteric, mucous membranes moist, PERRL, EOMI, pharynx normal, supple, no JVD, status post trach Respiratory/Chest: chest wall non-tender, no respiratory distress, no accessory muscle use, decreased breath sounds, crackles/rales Cardiovascular: normal peripheral pulses, normal rate, regular rhythm, no gallop/murmur, no JVD Abdomen: normal bowel sounds, soft, non tender, no organomegaly, non distended , no mass, no scars, other - G tube site cellulitis Genitourinary: normal external genitalia Extremities: no cyanosis, no clubbing Skin: no rash, no lesions, no ulcers 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, alert, responsive Lymphatic: no neck adenopathy, no groin adenopathy Musculoskeletal: normal muscle bulk, no effusion Microbiology Date/Time Source Procedure Growth Status 12/08/18 01:00 Abdomen Gram Stain - Final Resulted 12/08/18 01:00 Wound Culture - Preliminary Gram Negative Bacillus 1 Resulted Laboratory Tests Test 12/09/18 09:45 White Blood Count 7.0 K/UL (4.8-10.8) Red Blood Count 4.32 M/UL (4.70-6.10) L Hemoglobin 10.7 G/DL (14.2-18.0) L Hematocrit 34.4 % (42.0-52.0) L Mean Corpuscular Volume 80 FL (80-99) Mean Corpuscular Hemoglobin 24.7 PG (27.0-31.0) L Mean Corpuscular Hemoglobin Concent 31.0 G/DL (32.0-36.0) L Red Cell Distribution Width 16.8 % (11.6-14.8) H Platelet Count 190 K/UL (150-450) Mean Platelet Volume 6.6 FL (6.5-10.1) Neutrophils (%) (Auto) 76.6 % (45.0-75.0) H Lymphocytes (%) (Auto) 15.1 % (20.0-45.0) L Monocytes (%) (Auto) 7.2 % (1.0-10.0) Eosinophils (%) (Auto) 0.0 % (0.0-3.0) Basophils (%) (Auto) 1.1 % (0.0-2.0) Sodium Level 130 MMOL/L (136-145) L Potassium Level 4.8 MMOL/L (3.5-5.1) Chloride Level 90 MMOL/L (98-107) L Carbon Dioxide Level 25 MMOL/L (21-32) Anion Gap 15 mmol/L (5-15) Blood Urea Nitrogen 77 mg/dL (7-18) H Creatinine 7.8 MG/DL (0.55-1.30) H Estimat Glomerular Filtration Rate 7.0 mL/min (>60) Glucose Level 134 MG/DL (74-106) H Uric Acid 5.4 MG/DL (2.6-7.2) Calcium Level 8.9 MG/DL (8.5-10.1) Phosphorus Level 5.2 MG/DL (2.5-4.9) H Magnesium Level 2.4 MG/DL (1.8-2.4) Total Bilirubin 0.3 MG/DL (0.2-1.0) Gamma Glutamyl Transpeptidase 22 U/L (5-85) Aspartate Amino Transf (AST/SGOT) 13 U/L (15-37) L Alanine Aminotransferase (ALT/SGPT) 10 U/L (12-78) L Alkaline Phosphatase 116 U/L (46-116) Troponin I 0.070 ng/mL (0.000-0.056) C-Reactive Protein, Quantitative 14.0 mg/dL (0.00-0.90) H Pro-B-Type Natriuretic Peptide > 39023 pg/mL (0-125) H Total Protein 6.1 G/DL (6.4-8.2) L Albumin 2.0 G/DL (3.4-5.0) L Globulin 4.1 g/dL Albumin/Globulin Ratio 0.5 (1.0-2.7) L Random Vancomycin Level 5.9 ug/mL Current Medications Medications (Trade) Dose Ordered Sig/Aleks Route PRN Reason Start Time Stop Time Status Last Admin Dose Admin Acetaminophen (Tylenol) 650 mg Q4H PRN NG Mild Pain/Temp > 100.5 11/12/18 19:00 12/12/18 18:47 11/28/18 05:31 Aspirin (ASA) 162 mg DAILY GT 12/08/18 09:00 12/20/18 08:59 12/09/18 08:03 Atorvastatin Calcium (Lipitor) 10 mg BEDTIME NG 12/01/18 21:00 12/21/18 20:59 12/08/18 20:52 Bacitracin (Bacitracin) 1 applic BID TOPIC 12/07/18 18:00 01/06/19 17:59 12/09/18 08:03 Carvedilol (Coreg) 6.25 mg EVERY 12 HOURS PEG 12/06/18 21:00 01/03/19 20:59 12/08/18 20:54 Clotrimazole (Lotrimin) 1 applic BID TOPIC 12/07/18 18:00 01/06/19 17:59 12/09/18 08:05 Dextrose (Dextrose 50%) 25 ml Q30M PRN IV Hypoglycemia 12/01/18 19:30 12/31/18 19:29 Dextrose (Dextrose 50%) 50 ml Q30M PRN IV Hypoglycemia 12/01/18 19:30 12/31/18 19:29 Docusate Sodium (Colace) 100 mg EVERY 8 HOURS PRN GT constipation 11/24/18 18:51 12/20/18 18:50 Hydralazine HCl (Apresoline) 10 mg Q6H PRN GT For High Blood Pressure 12/03/18 16:45 01/02/19 16:44 12/07/18 04:47 Hydromorphone HCl (Dilaudid) 1 mg Q4H PRN GT For Pain 12/07/18 11:30 12/14/18 11:29 12/09/18 14:55 Insulin Aspart (NovoLOG) EVERY 6 HOURS SUBQ 12/02/18 00:00 12/31/18 20:59 12/09/18 06:52 Lactulose (Cephulac) 20 gm THREE TIMES A DAY PRN GT Constipation 11/24/18 18:51 12/23/18 18:50 Lansoprazole (Prevacid) 30 mg BID GT 11/20/18 09:00 12/20/18 08:59 12/09/18 08:03 Nicotine (Nicoderm) 1 patch Q24H TDERMAL 12/01/18 22:15 12/21/18 22:14 12/08/18 22:07 Nitroglycerin (Nitro-Bid) 1 inch TID@0600,1200,1800 TOPIC 12/07/18 12:00 01/06/19 11:59 12/09/18 12:31 Olanzapine (ZyPREXA) 2.5 mg BEDTIME GT 12/05/18 21:00 12/13/18 20:59 12/08/18 20:52 Olanzapine (ZyPREXA) 2.5 mg Q6H PRN ORAL agitation 11/15/18 23:00 12/15/18 22:59 12/06/18 00:23 Polyethylene Glycol (Miralax) 17 gm DAILYPRN PRN NG Constipation 11/12/18 19:00 12/11/18 15:29 11/13/18 05:30 Sevelamer Carbonate (Renvela) 800 mg Q8HR GT 11/20/18 14:00 12/20/18 13:59 12/09/18 14:50 Tacrolimus (Prograf) 2 mg MoWeFr@0000,1200 ORAL 12/07/18 00:00 12/21/18 00:00 12/09/18 12:31 Tacrolimus (Prograf) 2 mg SuTuThSa@0900,2100 ORAL 12/05/18 21:00 01/04/19 20:59 12/08/18 20:53 Francois Landis M.D. Dec 09, 2018 16:30
--- NOTE | 2018-12-09 19:00 | Neurology Progress Note ---
Interim History Interim History Interim History Mr. Restreop feels better today. His right foot is less painful. The mind has been clearer. He sat up at the edge of his bed today. He has not walked yet. He denies any new neurologic symptoms. Review of Systems Neuro Review of Systems Benign. Objective Physical Exam Last Vital Signs Date Time Temp Pulse Resp B/P (MAP) Pulse Ox O2 Delivery O2 Flow Rate FiO2 12/09/18 17:34 74 23 40 12/09/18 17:08 116/60 12/09/18 16:00 Mechanical Ventilator 12/09/18 16:00 97.5 99 Laboratory Tests Test 12/09/18 09:45 White Blood Count 7.0 K/UL (4.8-10.8) Red Blood Count 4.32 M/UL (4.70-6.10) L Hemoglobin 10.7 G/DL (14.2-18.0) L Hematocrit 34.4 % (42.0-52.0) L Mean Corpuscular Volume 80 FL (80-99) Mean Corpuscular Hemoglobin 24.7 PG (27.0-31.0) L Mean Corpuscular Hemoglobin Concent 31.0 G/DL (32.0-36.0) L Red Cell Distribution Width 16.8 % (11.6-14.8) H Platelet Count 190 K/UL (150-450) Mean Platelet Volume 6.6 FL (6.5-10.1) Neutrophils (%) (Auto) 76.6 % (45.0-75.0) H Lymphocytes (%) (Auto) 15.1 % (20.0-45.0) L Monocytes (%) (Auto) 7.2 % (1.0-10.0) Eosinophils (%) (Auto) 0.0 % (0.0-3.0) Basophils (%) (Auto) 1.1 % (0.0-2.0) Sodium Level 130 MMOL/L (136-145) L Potassium Level 4.8 MMOL/L (3.5-5.1) Chloride Level 90 MMOL/L (98-107) L Carbon Dioxide Level 25 MMOL/L (21-32) Anion Gap 15 mmol/L (5-15) Blood Urea Nitrogen 77 mg/dL (7-18) H Creatinine 7.8 MG/DL (0.55-1.30) H Estimat Glomerular Filtration Rate 7.0 mL/min (>60) Glucose Level 134 MG/DL (74-106) H Uric Acid 5.4 MG/DL (2.6-7.2) Calcium Level 8.9 MG/DL (8.5-10.1) Phosphorus Level 5.2 MG/DL (2.5-4.9) H Magnesium Level 2.4 MG/DL (1.8-2.4) Total Bilirubin 0.3 MG/DL (0.2-1.0) Gamma Glutamyl Transpeptidase 22 U/L (5-85) Aspartate Amino Transf (AST/SGOT) 13 U/L (15-37) L Alanine Aminotransferase (ALT/SGPT) 10 U/L (12-78) L Alkaline Phosphatase 116 U/L (46-116) Troponin I 0.070 ng/mL (0.000-0.056) C-Reactive Protein, Quantitative 14.0 mg/dL (0.00-0.90) H Pro-B-Type Natriuretic Peptide > 19802 pg/mL (0-125) H Total Protein 6.1 G/DL (6.4-8.2) L Albumin 2.0 G/DL (3.4-5.0) L Globulin 4.1 g/dL Albumin/Globulin Ratio 0.5 (1.0-2.7) L Random Vancomycin Level 5.9 ug/mL Neurologic Exam Objective PHYSICAL EXAMINATION: GENERAL: He is a well-developed and well-nourished, pleasant gentleman, lying in bed connected to a ventilator via tracheostomy. HEAD: Normocephalic and atraumatic. EENT: Examination benign. NECK: No neck rigidity was observed. He did have a tracheostomy. NEUROLOGICAL EXAMINATION: MENTAL STATUS EXAMINATION: He was awake and alert. He was oriented to person, place, and time. He was able to recall 3/3 words immediately, after 1 minute, and after 3 minutes on the second trial. He was able to remember president Emi through Mak Keny. His mathematical skills were minimally impaired. His visuospatial function was preserved. SPEECH: Could not be tested, but he was able to mouth words relatively well. LANGUAGE: He was able to comprehend and express himself relatively well using his communication board. CRANIAL NERVES EXAMINATION: II: The visual mckeon were intact to confrontation testing. III, IV & : The external ocular movements were full and the pupils 3 mm in diameter, equal, round, regular, and reactive sluggishly to light. V: He had normal facial sensations, and the temporales, masseters, and pterygoids functioned normally. VII: He had normal facial expressions and no facial asymmetry. VIII: Hearing was decreased bilaterally with worse hearing on the left side compared to the right. IX: The palate moved symmetrically on phonation. X: Could not be tested. XI: The sternocleidomastoids and trapezii functioned normally. XII: The tongue was in the midline without any fasciculations or atrophy. MOTOR SYSTEM: The tone was normal in all four extremities. Examination of muscle mass revealed generalized muscle wasting. Examination of power revealed G 5/5 power except for G 4+/5 power in the iliopsoas muscles bilaterally. SENSORY EXAMINATION: He had intact sensations to light touch. Other sensory modalities could not be tested adequately. REFLEXES: 1+ and bilaterally symmetrical at the biceps, triceps, brachioradialis , and knees, 0 at both ankles. The plantar responses were flexor bilaterally. COORDINATION: He performed well on [id number] testing. STANCE & GAIT: Were deferred. Impression/Recommendations Diagnostic Impression 1. Mr. Gregg Restrepo is a 68-year-old, right-handed, gentleman with past history of multiple medical problems including hypertension, diabetes mellitus, end-stage renal disease for which he is hemodialysis dependent, prior episodes of sepsis, and prior episodes of encephalopathy, who was admitted to [facility] on October 31, 2018. Following that, he has had a stormy hospital course including pneumonia and sepsis, right foot infection, respiratory failure for which he has needed tracheostomy and in addition he has exhibited an alteration in his mental state with some waxing and waning of his mental state. 2. He feels better today. His right foot is less painful. The mind has been clearer. He sat up at the edge of his bed today. He has not walked yet. He denies any new neurologic symptoms. 3. On neurological examination, at this time, he is fully oriented, has mild problems with recent and remote memory, normal visuospatial function, minimally impaired higher cognitive function, and is able to comprehend and express himself well. He does have mild G 4+/5 weakness in the iliopsoas muscles bilaterally, globally diminished deep tendon reflexes with loss of ankle jerks, but no definite focal or lateralizing neurological findings. 4. His latest laboratory data on my initial evaluation revealed that he was anemic with a hemoglobin of 10.8 G. His last blood gas performed on 11/14/2018 revealed that he had a pCO2 elevated at 56.4 with a normal pO2 of 88.3 and normal pH of 7.37. His latest chemistry panel revealed that he was mildly hyponatremic with a sodium of 130, and had a chloride of 90. The BUN was elevated at 75, creatinine elevated at 7.4, glucose elevated at 156, Hemoglobin A1c elevated at 6.9%, Alkaline phosphatase elevated at 131, and ProBNP greater than 35,000. His last B12 level on 11/07/2018 was 723. His last folate on was 18.6. His last TSH on 12/06/2018 was 4.82, which is minimally elevated. 5. The CT scan of the brain performed on 11/10/2018 was benign for acute intracranial pathology. 6. The EEG done on 12/08/18 revealed left temporal dysfunction. 7. The patient's history and neurological examination are most consistent with mild multifactorial encephalopathy, which apparently waxes and wanes, but no definite focal neurological dysfunction. His encephalopathy is better today. 8. He tells me that he had a brain bleed many years ago. We will have to find out what part of the brain was involved and if it matches with the EEG findings. Recommendations 1. Continue present management. 2. Attempts should be made to correct the patient's toxic metabolic imbalances that have already been observed. 3. Mobilize with PT/OT. 4. We may also want to find out if his Pacemaker is MRI safe. If it is it would be advisable to get a brain MRI. Pantera Cool M.D., M.S.P.H. Pantera Cool MD Dec 09, 2018 19:00
[2018-12-09 20:00] VITALS: BP 127/82
[2018-12-09] MEDS: OLANZapine 2.5mg tab GT SCH (21:07)
--- NOTE | 2018-12-09 21:18 | Psych Consult Progress Note ---
Psychiatry Progress Note Psychiatry Progress Note Subjective the pt is the same had hd today Medications Current Medications Medications (Trade) Dose Ordered Sig/Aleks Route PRN Reason Start Time Stop Time Status Last Admin Dose Admin Acetaminophen (Tylenol) 650 mg Q4H PRN NG Mild Pain/Temp > 100.5 11/12/18 19:00 12/12/18 18:47 11/28/18 05:31 Aspirin (ASA) 162 mg DAILY GT 12/08/18 09:00 12/20/18 08:59 12/09/18 08:03 Atorvastatin Calcium (Lipitor) 10 mg BEDTIME NG 12/01/18 21:00 12/21/18 20:59 12/09/18 21:07 Bacitracin (Bacitracin) 1 applic BID TOPIC 12/07/18 18:00 01/06/19 17:59 12/09/18 17:08 Carvedilol (Coreg) 6.25 mg EVERY 12 HOURS PEG 12/06/18 21:00 01/03/19 20:59 12/09/18 21:07 Clotrimazole (Lotrimin) 1 applic BID TOPIC 12/07/18 18:00 01/06/19 17:59 12/09/18 17:27 Dextrose (Dextrose 50%) 25 ml Q30M PRN IV Hypoglycemia 12/01/18 19:30 12/31/18 19:29 Dextrose (Dextrose 50%) 50 ml Q30M PRN IV Hypoglycemia 12/01/18 19:30 12/31/18 19:29 Docusate Sodium (Colace) 100 mg EVERY 8 HOURS PRN GT constipation 11/24/18 18:51 12/20/18 18:50 Hydralazine HCl (Apresoline) 10 mg Q6H PRN GT For High Blood Pressure 12/03/18 16:45 01/02/19 16:44 12/07/18 04:47 Hydromorphone HCl (Dilaudid) 1 mg Q4H PRN GT For Pain 12/07/18 11:30 12/14/18 11:29 12/09/18 19:21 Insulin Aspart (NovoLOG) EVERY 6 HOURS SUBQ 12/02/18 00:00 12/31/18 20:59 12/09/18 17:15 Lactulose (Cephulac) 20 gm THREE TIMES A DAY PRN GT Constipation 11/24/18 18:51 12/23/18 18:50 Lansoprazole (Prevacid) 30 mg BID GT 11/20/18 09:00 12/20/18 08:59 12/09/18 17:08 Nicotine (Nicoderm) 1 patch Q24H TDERMAL 12/01/18 22:15 12/21/18 22:14 12/08/18 22:07 Nitroglycerin (Nitro-Bid) 1 inch TID@0600,1200,1800 TOPIC 12/07/18 12:00 01/06/19 11:59 12/09/18 17:08 Olanzapine (ZyPREXA) 2.5 mg BEDTIME GT 12/05/18 21:00 12/13/18 20:59 12/09/18 21:07 Olanzapine (ZyPREXA) 2.5 mg Q6H PRN ORAL agitation 11/15/18 23:00 12/15/18 22:59 12/06/18 00:23 Polyethylene Glycol (Miralax) 17 gm DAILYPRN PRN NG Constipation 11/12/18 19:00 12/11/18 15:29 11/13/18 05:30 Sevelamer Carbonate (Renvela) 800 mg Q8HR GT 11/20/18 14:00 12/20/18 13:59 12/09/18 14:50 Tacrolimus (Prograf) 2 mg MoWeFr@0000,1200 ORAL 12/07/18 00:00 12/21/18 00:00 12/09/18 12:31 Tacrolimus (Prograf) 2 mg SuTuThSa@0900,2100 ORAL 12/05/18 21:00 01/04/19 20:59 12/08/18 20:53 Allergies: Coded Allergies: CEPHALEXIN (Unverified Allergy, Unknown, 02/24/14) SULFAMETHOXAZOLE (Unverified Allergy, Unknown, 02/24/14) TRIMETHOPRIM (Unverified Allergy, Unknown, 02/24/14) Objective Data Height (Feet): 5 Height (Inches): 5.00 Weight (Pounds): 218 General Appearance: WD/WN, no apparent distress, alert Appearance: disheveled Behavior Mannerisms: good eye contact Mental Status Exam - Mood: anxious Mental Status Exam - Thought P: confusion Assessment/Plan Problem List: (1) Encephalopathy acute ICD Codes: G93.40 - Encephalopathy, unspecified SNOMED: [id number], [id number] Status: stable Assessment/Plan: Zyprexa 2.5mg po qhs haldol IM prn the pt lacks capacity ativan 1mg gt prior to weaning off from vent MRI to rule out stroke however the pt is intubated Jeffrey Lala MD Dec 09, 2018 21:18
[2018-12-10] VITALS: BP 117/65
[2018-12-10] MEDS: HYDROmorphone 2mg tab GT PRN ×5 (00:11→20:23)
[2018-12-10] MEDS: NovoLOG Insulin Flexpen SUBQ SCH ×4 (00:19→18:24)
[2018-12-10 04:00] VITALS: BP 124/44
[2018-12-10] MEDS: Renvela 800mg Pkt GT SCH ×3 (05:38→21:32)
[2018-12-10] MEDS: Nitroglycerin 2% oint pkt TOPIC SCH ×3 (05:39→18:21)
[2018-12-10 08:00] VITALS: BP 136/97
[2018-12-10] MEDS: Bacitracin Oint UD TOPIC SCH ×2 (10:16→18:21)
[2018-12-10] MEDS: Aspirin Baby 81mg GT SCH (10:16)
[2018-12-10] MEDS: Carvedilol 6.25mg Tab PEG SCH ×2 (10:23→21:33)
--- NOTE | 2018-12-10 10:23 | Cardiac Electrophysiology PN ---
Assessment/Plan Assessment/Plan 1. Troponin leak with no chest pain. Due to renal failure. 2. CAD S/P CABG. On Coreg 3.125 mg bid, aspirin and Lipitor 3. Nonsustained ventricular tachycardia in setting of old NV and CABG. EF 55%. No Syncope 4. Congestive heart failure. On hemodialysis 5. End-stage renal disease, on hemodialysis per Dr. Stevens 6. Status post right sided Medtronic dual chamber pacemaker with Nl Fx. 7. Right foot ulcer. Antibiotic per Dr. Landis. FU by Dr. Huizar 8. History of liver transplant on Prograf 9. Respiratory failure, S/P tracheostomy. 10. Pleural effusion. FU Dr. Mendoza 11. Dysphagia, S/P PEG DW RN Subjective Subjective On the vent via tracheostomy. Alert and responsive.RN at bedside. Spelling is better. Objective Last 24 Hour Vital Signs Date Time Temp Pulse Resp B/P (MAP) Pulse Ox O2 Delivery O2 Flow Rate FiO2 12/10/18 09:17 79 24 40 12/10/18 06:50 75 24 40 12/10/18 05:39 124/44 12/10/18 04:58 71 24 40 12/10/18 04:00 97.6 76 19 124/44 (70) 100 12/10/18 04:00 70 12/10/18 04:00 Mechanical Ventilator 12/10/18 04:00 40 12/10/18 03:17 68 24 40 12/10/18 01:19 70 23 40 12/10/18 00:00 Mechanical Ventilator 12/10/18 00:00 97.3 72 21 117/65 (82) 100 12/09/18 23:25 71 12/09/18 23:09 71 24 40 12/09/18 21:21 74 25 40 12/09/18 21:07 74 127/82 12/09/18 20:00 97.7 74 20 127/82 (97) 100 12/09/18 20:00 74 12/09/18 20:00 40 12/09/18 20:00 Mechanical Ventilator 12/09/18 19:06 75 22 40 12/09/18 17:34 74 23 40 12/09/18 17:08 116/60 12/09/18 16:00 Mechanical Ventilator 12/09/18 16:00 97.5 76 25 116/60 (78) 99 12/09/18 16:00 40 12/09/18 15:54 78 12/09/18 15:03 80 24 40 12/09/18 13:04 70 23 40 12/09/18 12:31 133/103 12/09/18 12:00 67 12/09/18 12:00 Mechanical Ventilator 12/09/18 12:00 40 12/09/18 12:00 97.5 73 21 133/103 (113) 100 12/09/18 10:49 72 24 40 Intake and Output 12/09/18 12/10/18 19:00 07:00 Intake Total 620 ml 585 ml Output Total 1000 ml 20 ml Balance -380 ml 565 ml Free Water 80 ml 90 ml Tube Feeding 540 ml 495 ml Stool Total 20 ml Hemodialysis UF 1000 ml # Bowel Movements 2 2 Microbiology Date/Time Source Procedure Growth Status 12/08/18 01:00 Abdomen Gram Stain - Final Resulted 12/08/18 01:00 Wound Culture - Preliminary Gram Negative Bacillus 1 Resulted Objective HEAD AND NECK: No JVD.Tracheostomy intact LUNGS: Clear CARDIOVASCULAR: Irregular S1 and S2 with no gallop. Sternotomy is intact Pacemaker in the right subclavian ABDOMEN: Soft.PEG in place EXTREMITIES: 1+ pitting edema Shivam Sharpe MD Dec 10, 2018 10:23
--- NOTE | 2018-12-10 10:26 | GI Progress Note ---
Assessment/Plan Problems: (1) Foot ulcer ICD Codes: L97.509 - Non-pressure chronic ulcer of other part of unspecified foot with unspecified severity SNOMED: 19123602 Qualifiers: Qualified Codes: L97.511 - Non-pressure chronic ulcer of other part of right foot limited to breakdown of skin (2) DM (diabetes mellitus) ICD Codes: E11.9 - Type 2 diabetes mellitus without complications SNOMED: 54156479 (3) Transplant ICD Codes: Z94.9 - Transplanted organ and tissue status, unspecified SNOMED: 610451716 Status: stable, unchanged Status Narrative Discussed with Dr. Escalera. Assessment/Plan History of liver transplant, currently on Prograf C. difficile negative status post tracheostomy and PEG Infected G-tube site, fu ID recs would care cx >> GRAM NEGATIVE BACILLUS cont GTFs GT site care BID/prn topical abx around GT site HD per nephro cont tacrolimus prn transfusions ppi zofran prn Titrate bowel regimen follow labs supportive care The patient was seen and examined at bedside and all new and available data was reviewed in the patients chart. I agree with the above findings, impression and plan. (Patient seen earlier today. Signature stamp does not reflect patient encounter time.). - Jorge Escalera MD Subjective Subjective Limited, pain around GT site improved Objective Last 24 Hour Vital Signs Date Time Temp Pulse Resp B/P (MAP) Pulse Ox O2 Delivery O2 Flow Rate FiO2 12/10/18 09:17 79 24 40 12/10/18 06:50 75 24 40 12/10/18 05:39 124/44 12/10/18 04:58 71 24 40 12/10/18 04:00 97.6 76 19 124/44 (70) 100 12/10/18 04:00 70 12/10/18 04:00 Mechanical Ventilator 12/10/18 04:00 40 12/10/18 03:17 68 24 40 12/10/18 01:19 70 23 40 12/10/18 00:00 Mechanical Ventilator 12/10/18 00:00 97.3 72 21 117/65 (82) 100 12/09/18 23:25 71 12/09/18 23:09 71 24 40 12/09/18 21:21 74 25 40 12/09/18 21:07 74 127/82 12/09/18 20:00 97.7 74 20 127/82 (97) 100 12/09/18 20:00 74 12/09/18 20:00 40 12/09/18 20:00 Mechanical Ventilator 12/09/18 19:06 75 22 40 12/09/18 17:34 74 23 40 12/09/18 17:08 116/60 12/09/18 16:00 Mechanical Ventilator 12/09/18 16:00 97.5 76 25 116/60 (78) 99 12/09/18 16:00 40 12/09/18 15:54 78 12/09/18 15:03 80 24 40 12/09/18 13:04 70 23 40 12/09/18 12:31 133/103 12/09/18 12:00 67 12/09/18 12:00 Mechanical Ventilator 12/09/18 12:00 40 12/09/18 12:00 97.5 73 21 133/103 (113) 100 12/09/18 10:49 72 24 40 Intake and Output 12/09/18 12/10/18 19:00 07:00 Intake Total 620 ml 585 ml Output Total 1000 ml 20 ml Balance -380 ml 565 ml Free Water 80 ml 90 ml Tube Feeding 540 ml 495 ml Stool Total 20 ml Hemodialysis UF 1000 ml # Bowel Movements 2 2 Height (Feet): 5 Height (Inches): 5.00 Weight (Pounds): 218 General Appearance: no apparent distress Cardiovascular: normal rate Respiratory/Chest: normal breath sounds, no respiratory distress Abdominal Exam: normal bowel sounds, non tender, soft, GT site - Erythema still present Extremities: non-tender Kelvin Briggs [employer] Dec 10, 2018 10:26
[2018-12-10 12:00] VITALS: BP 93/73
--- NOTE | 2018-12-10 12:44 | Psych Consult Progress Note ---
Psychiatry Progress Note Psychiatry Progress Note Medications Current Medications Medications (Trade) Dose Ordered Sig/Aleks Route PRN Reason Start Time Stop Time Status Last Admin Dose Admin Acetaminophen (Tylenol) 650 mg Q4H PRN NG Mild Pain/Temp > 100.5 11/12/18 19:00 12/12/18 18:47 11/28/18 05:31 Aspirin (ASA) 162 mg DAILY GT 12/08/18 09:00 12/20/18 08:59 12/10/18 10:16 Atorvastatin Calcium (Lipitor) 10 mg BEDTIME NG 12/01/18 21:00 12/21/18 20:59 12/09/18 21:07 Bacitracin (Bacitracin) 1 applic BID TOPIC 12/07/18 18:00 01/06/19 17:59 12/10/18 10:16 Carvedilol (Coreg) 6.25 mg EVERY 12 HOURS PEG 12/06/18 21:00 01/03/19 20:59 12/10/18 10:23 Clotrimazole (Lotrimin) 1 applic BID TOPIC 12/07/18 18:00 01/06/19 17:59 12/10/18 10:16 Dextrose (Dextrose 50%) 25 ml Q30M PRN IV Hypoglycemia 12/01/18 19:30 12/31/18 19:29 Dextrose (Dextrose 50%) 50 ml Q30M PRN IV Hypoglycemia 12/01/18 19:30 12/31/18 19:29 Docusate Sodium (Colace) 100 mg EVERY 8 HOURS PRN GT constipation 11/24/18 18:51 12/20/18 18:50 Hydralazine HCl (Apresoline) 10 mg Q6H PRN GT For High Blood Pressure 12/03/18 16:45 01/02/19 16:44 12/07/18 04:47 Hydromorphone HCl (Dilaudid) 1 mg Q4H PRN GT For Pain 12/07/18 11:30 12/14/18 11:29 12/10/18 10:47 Insulin Aspart (NovoLOG) EVERY 6 HOURS SUBQ 12/02/18 00:00 12/31/18 20:59 12/10/18 05:41 Lactulose (Cephulac) 20 gm THREE TIMES A DAY PRN GT Constipation 11/24/18 18:51 12/23/18 18:50 Lansoprazole (Prevacid) 30 mg BID GT 11/20/18 09:00 12/20/18 08:59 12/10/18 10:16 Nicotine (Nicoderm) 1 patch Q24H TDERMAL 12/01/18 22:15 12/21/18 22:14 12/09/18 22:28 Nitroglycerin (Nitro-Bid) 1 inch TID@0600,1200,1800 TOPIC 12/07/18 12:00 01/06/19 11:59 12/10/18 05:39 Olanzapine (ZyPREXA) 2.5 mg BEDTIME GT 12/05/18 21:00 12/13/18 20:59 12/09/18 21:07 Olanzapine (ZyPREXA) 2.5 mg Q6H PRN ORAL agitation 11/15/18 23:00 12/15/18 22:59 12/06/18 00:23 Polyethylene Glycol (Miralax) 17 gm DAILYPRN PRN NG Constipation 11/12/18 19:00 12/11/18 15:29 11/13/18 05:30 Sevelamer Carbonate (Renvela) 800 mg Q8HR GT 11/20/18 14:00 12/20/18 13:59 12/10/18 05:38 Tacrolimus (Prograf) 2 mg MoWeFr@0000,1200 ORAL 12/07/18 00:00 12/21/18 00:00 12/09/18 12:31 Tacrolimus (Prograf) 2 mg SuTuThSa@0900,2100 ORAL 12/05/18 21:00 01/04/19 20:59 12/10/18 10:16 Neurological/Psychiatric: Reports: anxiety, depressed, emotional problems Allergies: Coded Allergies: CEPHALEXIN (Unverified Allergy, Unknown, 02/24/14) SULFAMETHOXAZOLE (Unverified Allergy, Unknown, 02/24/14) TRIMETHOPRIM (Unverified Allergy, Unknown, 02/24/14) Objective Data Height (Feet): 5 Height (Inches): 5.00 Weight (Pounds): 218 General Appearance: WD/WN, no apparent distress, alert, alert oriented x3 Appearance: disheveled Behavior Mannerisms: good eye contact Mental Status Exam - Affect: constricted Mental Status Exam - Mood: anxious Speech: clear Mental Status Exam - Suicidal: not present Assessment/Plan Problem List: (1) Encephalopathy acute ICD Codes: G93.40 - Encephalopathy, unspecified SNOMED: 92766845, 912133666 Status: stable, unchanged Assessment/Plan: Zyprexa 2.5mg po qhs haldol IM prn the pt lacks capacity ativan 1mg gt prior to weaning off from vent MRI to rule out stroke however the pt is intubated Jeffrey Lala MD Dec 10, 2018 12:44
--- NOTE | 2018-12-10 13:34 | General Progress Note ---
Assessment/Plan Status: stable, unchanged Assessment/Plan: Assessment and Recs: # Coagulopathy likely secondary to decreased Vitk dependent cofactors (high INR , PT) --> monitor closely for any evidence of bleeding --> hold off on mixing study at this time unless severe changes noted --> VIT K on prn basis sq can be administered # Anemia of chronic disease due to underlying chronic medical issues, multifactorial as well as kidney disease --> Anemia workup has been ordered, rule out gi bleed, seen by gi, also reviewed w/u --> HAS BEEN reordered since refusing --> No evidence of hemolysis is noted, peripheral smear has been reviewed. --> Hgb goal >7. Transfuse prn. --> Epogen can be consider if hgb downtrends --> Medications have been reviewed --> evaluate with Gi team prn --> transfuse if hgb is < 7 (will trend CBC daily) # Failure to thrive is likely related to poor overall status --> with multiple decub ulcerations that are noted, seen by id/surgery --> s/p trach as well --> cea is wnl # Acute respiratory failure is now s/p trach --> as per surgery recs # Ground glass opacity present on imaging of lung --> with pleural effusions, s/p drainage at this time --> no evidence for malignancy is noted # Pleural effusion --> s/p thoracentesis # Hyperkalemia --> kayxelate has been given # Renal failure --> per renal recs, appreciated --> getting hd as per schedule # Altered level of consciousness ==> currently as per baseline The timing of this note does not necessarily reflect the time of the patient was seen. Greatly appreciate consultation! Subjective HEENT: Denies: no symptoms, eye pain, blurred vision, tearing, double vision, ear pain, ear discharge, nose pain, nose congestion, throat pain, throat swelling, mouth pain, mouth swelling, other Cardiovascular: Denies: no symptoms, chest pain, edema, irregular heart rate, lightheadedness, palpitations, syncope, other Respiratory: Denies: no symptoms, cough, orthopnea, shortness of breath, SOB with excertion, SOB at rest, sputum, stridor, wheezing, other Genitourinary: Denies: no symptoms, burning, discharge, frequency, flank pain, hematuria, incontinence, pain, urgency, other 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: Denies: no symptoms, anxiety, depressed, emotional problems, headache, numbness, paresthesia, pre-existing deficit, seizure, tingling, tremors, weakness, other Endocrine: Denies: no symptoms, excessive sweating, flushing, intolerance to cold, intolerance to heat, increased hunger, increased thirst, increased urine, unexplained weight gain, unexplained weight loss, other Allergies: Coded Allergies: CEPHALEXIN (Unverified Allergy, Unknown, 02/24/14) SULFAMETHOXAZOLE (Unverified Allergy, Unknown, 02/24/14) TRIMETHOPRIM (Unverified Allergy, Unknown, 02/24/14) Subjective 11/30: comfortable, on abx, no complaints, on t-piece 12/01: to have hd done potentially tomorrow, is more alert/awake 12/02: no major bleeding, hgb remains approx 11, no changes 12/03: no events, breathing mildly better, hgb is improved 12/04: on vent/trach, no major changes, sr ekg 12/10: small amount of secretions, on trach/vent, no issues otherwise Objective Last 24 Hour Vital Signs Date Time Temp Pulse Resp B/P (MAP) Pulse Ox O2 Delivery O2 Flow Rate FiO2 12/10/18 12:00 97.5 68 24 93/73 (80) 100 12/10/18 12:00 93/73 12/10/18 11:01 99 12/10/18 10:55 80 23 40 12/10/18 10:23 71 136/97 12/10/18 09:17 79 24 40 12/10/18 08:00 97.5 71 24 136/97 (110) 100 12/10/18 06:50 75 24 40 12/10/18 05:39 124/44 12/10/18 04:58 71 24 40 12/10/18 04:00 97.6 76 19 124/44 (70) 100 12/10/18 04:00 70 12/10/18 04:00 Mechanical Ventilator 12/10/18 04:00 40 12/10/18 03:17 68 24 40 12/10/18 01:19 70 23 40 12/10/18 00:00 Mechanical Ventilator 12/10/18 00:00 97.3 72 21 117/65 (82) 100 12/09/18 23:25 71 12/09/18 23:09 71 24 40 12/09/18 21:21 74 25 40 12/09/18 21:07 74 127/82 12/09/18 20:00 97.7 74 20 127/82 (97) 100 12/09/18 20:00 74 12/09/18 20:00 40 12/09/18 20:00 Mechanical Ventilator 12/09/18 19:06 75 22 40 12/09/18 17:34 74 23 40 12/09/18 17:08 116/60 12/09/18 16:00 Mechanical Ventilator 12/09/18 16:00 97.5 76 25 116/60 (78) 99 12/09/18 16:00 40 12/09/18 15:54 78 12/09/18 15:03 80 24 40 Intake and Output 12/09/18 12/10/18 19:00 07:00 Intake Total 620 ml 585 ml Output Total 1000 ml 20 ml Balance -380 ml 565 ml Free Water 80 ml 90 ml Tube Feeding 540 ml 495 ml Stool Total 20 ml Hemodialysis UF 1000 ml # Bowel Movements 2 2 Height (Feet): 5 Height (Inches): 5.00 Weight (Pounds): 218 Objective PE General Appearance: mild distress, moderate distress Lines, tubes and drains: peripheral HEENT: EOMI, thrush, tonsils swollen ++trach Neck: normal inspection Respiratory/Chest: decreased breath sounds, accessory muscle use Cardiovascular/Chest: tachycardia Abdomen: soft, no organomegaly, no mass, ++ peg Extremities: other Skin Exam: warm/dry, rash Neurologic: alert, responsive Zacarias Khoury MD Dec 10, 2018 13:34
--- NOTE | 2018-12-10 13:52 | Podiatric Progress Note ---
Assessment/Plan Patient Gregg Riley is a 68 year old male who was admitted on Oct 31, 2018 at 19:13 with Assessment/Plan A/ 1) Right heel eschar 2) PAD 3) DM P/ 1) Arterial studies +PAD, will order Vasc consult, Dr Dyer 2) Cont local care 3) Cont offloading 4) Bone scan neg for OM 5) Will follow Subjective Allergies: Coded Allergies: CEPHALEXIN (Unverified Allergy, Unknown, 02/24/14) SULFAMETHOXAZOLE (Unverified Allergy, Unknown, 02/24/14) TRIMETHOPRIM (Unverified Allergy, Unknown, 02/24/14) Subjective Patient states his right heel is sensitive. No other pedal complaints. Objective Exam Last 24 Hour Vital Signs Date Time Temp Pulse Resp B/P (MAP) Pulse Ox O2 Delivery O2 Flow Rate FiO2 12/10/18 13:24 71 23 40 12/10/18 12:00 97.5 68 24 93/73 (80) 100 12/10/18 12:00 Mechanical Ventilator 12/10/18 12:00 93/73 12/10/18 11:01 99 12/10/18 10:55 80 23 40 12/10/18 10:23 71 136/97 12/10/18 09:17 79 24 40 12/10/18 08:00 70 12/10/18 08:00 Mechanical Ventilator 12/10/18 08:00 97.5 71 24 136/97 (110) 100 12/10/18 06:50 75 24 40 12/10/18 05:39 124/44 12/10/18 04:58 71 24 40 12/10/18 04:00 97.6 76 19 124/44 (70) 100 12/10/18 04:00 70 12/10/18 04:00 Mechanical Ventilator 12/10/18 04:00 40 12/10/18 03:17 68 24 40 12/10/18 01:19 70 23 40 12/10/18 00:00 Mechanical Ventilator 12/10/18 00:00 97.3 72 21 117/65 (82) 100 12/09/18 23:25 71 12/09/18 23:09 71 24 40 12/09/18 21:21 74 25 40 12/09/18 21:07 74 127/82 12/09/18 20:00 97.7 74 20 127/82 (97) 100 12/09/18 20:00 74 12/09/18 20:00 40 12/09/18 20:00 Mechanical Ventilator 12/09/18 19:06 75 22 40 12/09/18 17:34 74 23 40 12/09/18 17:08 116/60 12/09/18 16:00 Mechanical Ventilator 12/09/18 16:00 97.5 76 25 116/60 (78) 99 12/09/18 16:00 40 12/09/18 15:54 78 12/09/18 15:03 80 24 40 Microbiology Date/Time Source Procedure Growth Status 11/14/18 15:30 Blood Blood Culture - Final NO GROWTH AFTER 5 DAYS Complete 11/12/18 12:13 Pleural Fluid Gram Stain - Final Complete 11/12/18 12:13 Pleural Fluid Body Fluid Culture - Final NO GROWTH Complete 10/31/18 20:39 Wound Gram Stain - Final Complete 10/31/18 20:39 Wound Culture - Final Staphylococcus Aureus - Mrsa Complete 10/31/18 21:00 Nasal Nares MRSA Culture - Final Staphylococcus Aureus - Mrsa Complete 11/30/18 17:33 Stool Clostridium difficile Toxin Assay - Final Complete 12/08/18 01:00 Abdomen Gram Stain - Final Complete 12/08/18 01:00 Wound Culture - Final Pseudomonas Aeruginosa Complete Musculoskeletal Musculoskeletal Patient : GREGG RILEY Referring Physician: Francois Landis M.D. ID Number: [id number] Service Date: 11/05/18 : 1950 Report Date: 11/06/18 Gender: M Accession No.: [id number] Location: ICU Procedure: NM Bone Scan 3-Phase Indication: Right heel wound with eschar Technique: IV administration mCi 99 M technetium MDP. Flow, blood pool, and static images were obtained over the feet and ankles Comparison: Foot CT dated 11/02/2018, foot radiograph dated 10/31/2018 Findings: Flow images demonstrate equivocal very slight hyperemia of the right ankle compared to the left. Blood pool images are unremarkable. Static images demonstrate increased uptake in the bilateral ankles and hindfeet which is fairly symmetric. No calcaneal increased uptake demonstrated. Impression: Negative for evidence of osteomyelitis Dictated By: Craig Gonzales MD Electronically Signed By: Craig Gonzales MD Signed Date/Time 11/06/18 1233 Dermatological Dermatological Narrative Right heel eschar - without signs of acute infection. Dry. No other LE wounds noted. Darwin Kumari DPM Dec 10, 2018 13:52
--- NOTE | 2018-12-10 15:23 | Nephrology Progress Note ---
Assessment/Plan Problem List: (1) ESRD (end stage renal disease) on dialysis (2) Foot ulcer (3) CHF (congestive heart failure) Assessment: Ej Fx 20 % (4) Pacemaker (5) Acute respiratory failure Assessment: with Co2 retention Assessment ESRD with high K and SOB on admit Foot ulcer, likely infected High Troponin likely NSTMI Pacer , Pleural effusion s/p CABGS s/p Liver transplant Plan GT site infection, topical antibiotic Neuro note appreciated PT ordered patient refuses CT pain med change to dilaudid GT Now has tracheostomy and PEG Adjust BP meds add nitro paste TID HD next - in process- tolerating well Antibiotics by ID start tube feeding / hasPEG per cardio and ID Podiatry and Vascular surgical fu ? DC planning? ALSO COVERING MEDCINE FOR DR BERG Subjective ROS Limited/Unobtainable: No Constitutional: Reports: malaise Objective Objective Last 24 Hour Vital Signs Date Time Temp Pulse Resp B/P (MAP) Pulse Ox O2 Delivery O2 Flow Rate FiO2 12/10/18 13:24 71 23 40 12/10/18 12:00 97.5 68 24 93/73 (80) 100 12/10/18 12:00 Mechanical Ventilator 12/10/18 12:00 93/73 12/10/18 12:00 70 12/10/18 12:00 40 12/10/18 11:01 99 12/10/18 10:55 80 23 40 12/10/18 10:23 71 136/97 12/10/18 09:17 79 24 40 12/10/18 08:00 70 12/10/18 08:00 Mechanical Ventilator 12/10/18 08:00 97.5 71 24 136/97 (110) 100 12/10/18 08:00 40 12/10/18 06:50 75 24 40 12/10/18 05:39 124/44 12/10/18 04:58 71 24 40 12/10/18 04:00 97.6 76 19 124/44 (70) 100 12/10/18 04:00 70 12/10/18 04:00 Mechanical Ventilator 12/10/18 04:00 40 12/10/18 03:17 68 24 40 12/10/18 01:19 70 23 40 12/10/18 00:00 Mechanical Ventilator 12/10/18 00:00 97.3 72 21 117/65 (82) 100 12/09/18 23:25 71 12/09/18 23:09 71 24 40 12/09/18 21:21 74 25 40 12/09/18 21:07 74 127/82 12/09/18 20:00 97.7 74 20 127/82 (97) 100 12/09/18 20:00 74 12/09/18 20:00 40 12/09/18 20:00 Mechanical Ventilator 12/09/18 19:06 75 22 40 12/09/18 17:34 74 23 40 12/09/18 17:08 116/60 12/09/18 16:00 Mechanical Ventilator 12/09/18 16:00 97.5 76 25 116/60 (78) 99 12/09/18 16:00 40 12/09/18 15:54 78 Intake and Output 12/09/18 12/10/18 19:00 07:00 Intake Total 620 ml 585 ml Output Total 1000 ml 20 ml Balance -380 ml 565 ml Free Water 80 ml 90 ml Tube Feeding 540 ml 495 ml Stool Total 20 ml Hemodialysis UF 1000 ml # Bowel Movements 2 2 Height (Feet): 5 Height (Inches): 5.00 Weight (Pounds): 218 General Appearance: no apparent distress Objective no other change Nakul Stevens MD Dec 10, 2018 15:23
[2018-12-10 16:00] VITALS: BP 112/67
--- NOTE | 2018-12-10 16:16 | Infectious Diseases Prog Note ---
Assessment/Plan Problems: (1) G-tube site cellulitis Assessment & Plan: culture from the site grew pseudomonas , will start oral ciprofloxacin , continue local antibiotics as per GI (2) Thrush, oral Assessment & Plan: continue local nystatin , S/P micafungin for three weeks empirically (3) HCV antibody positive Assessment & Plan: no evidence of active infection, with undetectable viral load , suspect due to previous infection , cleared, S/P liver transplant . (4) Foot ulcer Assessment & Plan: in diabetic patient , with MRSA , S/P vancomycin treatment with HD for two weeks , pending vascular eval and possible surgical debridement. bone scan ruled out osteomyelitis of the heel . 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 now improving, pulmonary is following (9) Pleural effusion Assessment & Plan: recurrent on the right, with lung collapse , S/P thoracentesis X2 with removal of 1.5 cc of clear fluids. PREVIOUS culture were negative with negative cytology Subjective Constitutional: Reports: no symptoms HEENT: Reports: no symptoms Respiratory: Reports: no symptoms Breasts: Reports: no symptoms Cardiovascular: Reports: no symptoms Gastrointestinal/Abdominal: Reports: no symptoms Genitourinary: Reports: no symptoms Neurologic: Reports: no symptoms Psychiatric: Reports: no symptoms Skin: Reports: no symptoms Endocrine: Reports: no symptoms Hematologic: Reports: no symptoms Musculoskeletal: Reports: no symptoms Allergies: Coded Allergies: CEPHALEXIN (Unverified Allergy, Unknown, 02/24/14) SULFAMETHOXAZOLE (Unverified Allergy, Unknown, 02/24/14) TRIMETHOPRIM (Unverified Allergy, Unknown, 02/24/14) Subjective he was comfortable, has no facial swelling and mild tongue swelling , awake and responsive, no fever or chills, no significant secretions , no SOB . has less thrush on his tongue Objective Vital Signs Last 24 Hour Vital Signs Date Time Temp Pulse Resp B/P (MAP) Pulse Ox O2 Delivery O2 Flow Rate FiO2 12/10/18 16:00 97.9 71 21 112/67 (82) 99 12/10/18 14:36 82 30 40 12/10/18 13:24 71 23 40 12/10/18 12:00 97.5 68 24 93/73 (80) 100 12/10/18 12:00 Mechanical Ventilator 12/10/18 12:00 93/73 12/10/18 12:00 70 12/10/18 12:00 40 12/10/18 11:01 99 12/10/18 10:55 80 23 40 12/10/18 10:23 71 136/97 12/10/18 09:17 79 24 40 12/10/18 08:00 70 12/10/18 08:00 Mechanical Ventilator 12/10/18 08:00 97.5 71 24 136/97 (110) 100 12/10/18 08:00 40 12/10/18 06:50 75 24 40 12/10/18 05:39 124/44 12/10/18 04:58 71 24 40 12/10/18 04:00 97.6 76 19 124/44 (70) 100 12/10/18 04:00 70 12/10/18 04:00 Mechanical Ventilator 12/10/18 04:00 40 12/10/18 03:17 68 24 40 12/10/18 01:19 70 23 40 12/10/18 00:00 Mechanical Ventilator 12/10/18 00:00 97.3 72 21 117/65 (82) 100 12/09/18 23:25 71 12/09/18 23:09 71 24 40 12/09/18 21:21 74 25 40 12/09/18 21:07 74 127/82 12/09/18 20:00 97.7 74 20 127/82 (97) 100 12/09/18 20:00 74 12/09/18 20:00 40 12/09/18 20:00 Mechanical Ventilator 12/09/18 19:06 75 22 40 12/09/18 17:34 74 23 40 12/09/18 17:08 116/60 Height (Feet): 5 Height (Inches): 5.00 Weight (Pounds): 218 General Appearance: WD/WN, no acute distress HEENT: normocephalic, atraumatic, anicteric, mucous membranes moist, PERRL, EOMI, pharynx normal, supple, no JVD, status post trach Respiratory/Chest: chest wall non-tender, lungs clear, no accessory muscle use , decreased breath sounds, crackles/rales Cardiovascular: normal peripheral pulses, normal rate, regular rhythm, no gallop/murmur, no JVD Abdomen: normal bowel sounds, soft, non tender, no organomegaly, non distended , no mass, no scars Genitourinary: normal external genitalia Extremities: no cyanosis, no clubbing Skin: no rash, no lesions, no ulcers 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: head of operation and logistics 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 normal, alert, responsive Lymphatic: no neck adenopathy, no groin adenopathy Musculoskeletal: normal muscle bulk, no effusion Microbiology Date/Time Source Procedure Growth Status 12/08/18 01:00 Abdomen Gram Stain - Final Complete 12/08/18 01:00 Wound Culture - Final Pseudomonas Aeruginosa Complete Current Medications Medications (Trade) Dose Ordered Sig/Aleks Route PRN Reason Start Time Stop Time Status Last Admin Dose Admin Acetaminophen (Tylenol) 650 mg Q4H PRN NG Mild Pain/Temp > 100.5 11/12/18 19:00 12/12/18 18:47 11/28/18 05:31 Aspirin (ASA) 162 mg DAILY GT 12/08/18 09:00 12/20/18 08:59 12/10/18 10:16 Atorvastatin Calcium (Lipitor) 10 mg BEDTIME NG 12/01/18 21:00 12/21/18 20:59 12/09/18 21:07 Bacitracin (Bacitracin) 1 applic BID TOPIC 12/07/18 18:00 01/06/19 17:59 12/10/18 10:16 Carvedilol (Coreg) 6.25 mg EVERY 12 HOURS PEG 12/06/18 21:00 01/03/19 20:59 12/10/18 10:23 Clotrimazole (Lotrimin) 1 applic BID TOPIC 12/07/18 18:00 01/06/19 17:59 12/10/18 10:16 Dextrose (Dextrose 50%) 25 ml Q30M PRN IV Hypoglycemia 12/01/18 19:30 12/31/18 19:29 Dextrose (Dextrose 50%) 50 ml Q30M PRN IV Hypoglycemia 12/01/18 19:30 12/31/18 19:29 Docusate Sodium (Colace) 100 mg EVERY 8 HOURS PRN GT constipation 11/24/18 18:51 12/20/18 18:50 Hydralazine HCl (Apresoline) 10 mg Q6H PRN GT For High Blood Pressure 12/03/18 16:45 01/02/19 16:44 12/07/18 04:47 Hydromorphone HCl (Dilaudid) 1 mg Q4H PRN GT For Pain 12/07/18 11:30 12/14/18 11:29 12/10/18 15:43 Insulin Aspart (NovoLOG) EVERY 6 HOURS SUBQ 12/02/18 00:00 12/31/18 20:59 12/10/18 12:52 Lactulose (Cephulac) 20 gm THREE TIMES A DAY PRN GT Constipation 11/24/18 18:51 12/23/18 18:50 Lansoprazole (Prevacid) 30 mg BID GT 11/20/18 09:00 12/20/18 08:59 12/10/18 10:16 Nicotine (Nicoderm) 1 patch Q24H TDERMAL 12/01/18 22:15 12/21/18 22:14 12/09/18 22:28 Nitroglycerin (Nitro-Bid) 1 inch TID@0600,1200,1800 TOPIC 12/07/18 12:00 01/06/19 11:59 12/10/18 05:39 Olanzapine (ZyPREXA) 2.5 mg BEDTIME GT 12/05/18 21:00 12/13/18 20:59 12/09/18 21:07 Olanzapine (ZyPREXA) 2.5 mg Q6H PRN ORAL agitation 11/15/18 23:00 12/15/18 22:59 12/06/18 00:23 Polyethylene Glycol (Miralax) 17 gm DAILYPRN PRN NG Constipation 11/12/18 19:00 12/11/18 15:29 11/13/18 05:30 Sevelamer Carbonate (Renvela) 800 mg Q8HR GT 11/20/18 14:00 12/20/18 13:59 12/10/18 14:19 Tacrolimus (Prograf) 2 mg MoWeFr@0000,1200 ORAL 12/07/18 00:00 12/21/18 00:00 12/09/18 12:31 Tacrolimus (Prograf) 2 mg TrudiNaren@0900,2100 ORAL 12/05/18 21:00 01/04/19 20:59 12/10/18 10:16 Francois Landis M.D. Dec 10, 2018 16:16
--- NOTE | 2018-12-10 17:18 | Neurology Progress Note ---
Interim History Interim History Interim History Mr. Restrepo feels better generally. His right foot is less painful. The mind has been clearer. He has not been up at the edge of the bed today. He has not walked yet. He is comfortable with his breathing. The right upper extremity is swollen and painful. He denies any new neurologic symptoms. Review of Systems Neuro Review of Systems Benign. Objective Physical Exam Last Vital Signs Date Time Temp Pulse Resp B/P (MAP) Pulse Ox O2 Delivery O2 Flow Rate FiO2 12/10/18 16:32 70 23 40 12/10/18 16:00 Mechanical Ventilator 12/10/18 16:00 97.9 112/67 (82) 99 Neurologic Exam Objective PHYSICAL EXAMINATION: GENERAL: He is a well-developed and well-nourished, pleasant gentleman, lying in bed connected to a ventilator via tracheostomy. HEAD: Normocephalic and atraumatic. EENT: Examination benign. NECK: No neck rigidity was observed. He did have a tracheostomy. NEUROLOGICAL EXAMINATION: MENTAL STATUS EXAMINATION: He was awake and alert. He was oriented to person, place, and time, except for the exact date. He was able to recall 3/3 words immediately, after 1 minute, and after 3 minutes on the second trial. He was able to remember president Emi through Mak Keny. His mathematical skills were minimally impaired. His visuospatial function was preserved. SPEECH: Could not be tested, but he was able to mouth words relatively well. LANGUAGE: He was able to comprehend and express himself relatively well using his communication board. CRANIAL NERVES EXAMINATION: II: The visual mckeon were intact to confrontation testing. III, IV & : The external ocular movements were full and the pupils 3 mm in diameter, equal, round, regular, and reactive sluggishly to light. V: He had normal facial sensations, and the temporales, masseters, and pterygoids functioned normally. VII: He had normal facial expressions and no facial asymmetry. VIII: Hearing was decreased bilaterally with worse hearing on the left side compared to the right. IX: The palate moved symmetrically on phonation. X: Could not be tested. XI: The sternocleidomastoids and trapezii functioned normally. XII: The tongue was in the midline without any fasciculations or atrophy. MOTOR SYSTEM: The tone was normal in all four extremities. Examination of muscle mass revealed generalized muscle wasting. Examination of power revealed G 5/5 power except for G 4+/5 power in the iliopsoas muscles bilaterally. SENSORY EXAMINATION: He had intact sensations to light touch. Other sensory modalities could not be tested adequately. REFLEXES: 1+ and bilaterally symmetrical at the biceps, triceps, brachioradialis , and knees, 0 at both ankles. The plantar responses were flexor bilaterally. COORDINATION: He performed well on [id number] testing. STANCE & GAIT: Were deferred. Impression/Recommendations Diagnostic Impression 1. Mr. Gregg Restrepo is a 68-year-old, right-handed, gentleman with past history of multiple medical problems including hypertension, diabetes mellitus, end-stage renal disease for which he is hemodialysis dependent, prior episodes of sepsis, and prior episodes of encephalopathy, who was admitted to [facility] on October 31, 2018. Following that, he has had a stormy hospital course including pneumonia and sepsis, right foot infection, respiratory failure for which he has needed tracheostomy and in addition he has exhibited an alteration in his mental state with some waxing and waning of his mental state. 2. He feels better generally. His right foot is less painful. The mind has been clearer. He has not been up at the edge of the bed today. He has not walked yet. He is comfortable with his breathing. The right upper extremity is swollen and painful. He denies any new neurologic symptoms. 3. On neurological examination, at this time, he is well oriented, except for the exact date, has mild problems with recent and remote memory, normal visuospatial function, minimally impaired higher cognitive function, and is able to comprehend and express himself well. He does have mild G 4+/5 weakness in the iliopsoas muscles bilaterally, globally diminished deep tendon reflexes with loss of ankle jerks, but no definite focal or lateralizing neurological findings. 4. His latest laboratory data on my initial evaluation revealed that he was anemic with a hemoglobin of 10.8 G. His last blood gas performed on 11/14/2018 revealed that he had a pCO2 elevated at 56.4 with a normal pO2 of 88.3 and normal pH of 7.37. His latest chemistry panel revealed that he was mildly hyponatremic with a sodium of 130, and had a chloride of 90. The BUN was elevated at 75, creatinine elevated at 7.4, glucose elevated at 156, Hemoglobin A1c elevated at 6.9%, Alkaline phosphatase elevated at 131, and ProBNP greater than 35,000. His last B12 level on 11/07/2018 was 723. His last folate on was 18.6. His last TSH on 12/06/2018 was 4.82, which is minimally elevated. 5. The CT scan of the brain performed on 11/10/2018 was benign for acute intracranial pathology. 6. The EEG done on 12/08/18 revealed left temporal dysfunction. 7. The patient's history and neurological examination are most consistent with mild multifactorial encephalopathy, which apparently waxes and wanes, but no definite focal neurological dysfunction. His encephalopathy is better today. 8. He tells me that he had a brain bleed many years ago. We will have to find out what part of the brain was involved and if it matches with the EEG findings. Recommendations 1. Continue present management. 2. Attempts should be made to correct the patient's toxic metabolic imbalances that have already been observed. 3. Mobilize with PT/OT. 4. We may also want to find out if his Pacemaker is MRI safe. If it is it would be advisable to get a brain MRI. Pantera Cool M.D., M.S.P.H. Pantera Cool MD Dec 10, 2018 17:17
--- NOTE | 2018-12-10 17:28 | Diagnostic Imaging Report ---
Indication: Altered level of consciousness Technique: Spiral acquisitions obtained through the brain pre- and post-IV contrast administration. Angled axial and coronal 5 x 5 mm slices reconstructed. Total dose length product 3020.83 mGycm. CTDIvol(s) 70.38,70.38 mGy. Dose reduction achieved using automated exposure control Comparison: none Findings: Precontrast images demonstrate age-related enlargement of the ventricles and extra axial CSF spaces. There is periventricular deep white matter low-attenuation, consistent with chronic microvascular ischemic change. No acute intracranial hemorrhage or edema, mass effect, nor midline shift. Postcontrast images demonstrate no unusual contrast enhancement. The orbits are unremarkable. There is a left maxillary sinus mucous retention cyst and there is right sphenoid sinus disease. There is extensive opacification of the mastoids bilaterally, left greater than right Impression: Negative for acute intracranial bleed, mass effect, or contrast enhancing lesion Chronic and age-related changes, as described Maxillofacial sinuses and mastoid disease as described. The CT scanner at [facility] is accredited by the [employer] and the scans are performed using protocols designed to limit radiation exposure to as low as reasonably achievable to attain images of sufficient resolution adequate for diagnostic evaluation.
[2018-12-10 20:00] VITALS: BP 118/71
[2018-12-10] MEDS: Ciprofloxacin 500mg tab ORAL SCH (21:32)
[2018-12-10] MEDS: OLANZapine 2.5mg tab GT SCH (21:32)
[2018-12-10] MEDS: Acetaminophen 650mg/20.3ml NG PRN (21:52)
[2018-12-11] MEDS: NovoLOG Insulin Flexpen SUBQ SCH ×5 (00:01→23:13)
[2018-12-11 04:00] VITALS: BP 111/74
[2018-12-11] MEDS: HYDROmorphone 2mg tab GT PRN ×4 (04:17→20:10)
[2018-12-11] MEDS: Nitroglycerin 2% oint pkt TOPIC SCH ×4 (05:42→18:00)
[2018-12-11] MEDS: Renvela 800mg Pkt GT SCH ×3 (05:42→21:15)
[2018-12-11 08:00] VITALS: BP 145/75
[2018-12-11] MEDS: Bacitracin Oint UD TOPIC SCH ×2 (08:30→20:09)
[2018-12-11] MEDS: Aspirin Baby 81mg GT SCH (08:31)
[2018-12-11] MEDS: Carvedilol 6.25mg Tab PEG SCH ×2 (08:31→20:09)
--- NOTE | 2018-12-11 09:13 | Cardiac Electrophysiology PN ---
Assessment/Plan Assessment/Plan 1. Troponin leak with no chest pain. Due to renal failure. 2. CAD S/P CABG. On Coreg 3.125 mg bid, aspirin and Lipitor 3. Nonsustained ventricular tachycardia in setting of old NE and CABG. EF 55%. No Syncope 4. Congestive heart failure. On hemodialysis 5. End-stage renal disease, on hemodialysis per Dr. Stevens 6. Status post right sided [employer] dual chamber pacemaker with Nl Fx. 7. Right foot ulcer. Antibiotic per Dr. Landis. FU by Dr. Huizar 8. History of liver transplant on Prograf 9. Respiratory failure, S/P tracheostomy. 10. Pleural effusion. FU Dr. Mendoza 11. Dysphagia, S/P PEG DW RN Subjective Subjective On the vent via tracheostomy. Alert and responsive. RN at bedside.HD pending today Objective Last 24 Hour Vital Signs Date Time Temp Pulse Resp B/P (MAP) Pulse Ox O2 Delivery O2 Flow Rate FiO2 12/11/18 09:05 72 23 40 12/11/18 08:31 66 145/75 12/11/18 08:00 40 12/11/18 08:00 97.5 66 22 145/75 (98) 99 12/11/18 08:00 Mechanical Ventilator 12/11/18 07:44 65 12/11/18 07:04 75 25 40 12/11/18 05:42 111/74 12/11/18 04:35 66 26 40 12/11/18 04:00 40 12/11/18 04:00 63 12/11/18 04:00 Mechanical Ventilator 12/11/18 04:00 97.6 73 22 111/74 (86) 100 12/11/18 02:52 62 23 40 12/11/18 00:46 63 24 40 12/11/18 00:00 64 12/11/18 00:00 Mechanical Ventilator 12/10/18 22:23 69 24 40 12/10/18 21:33 72 118/71 12/10/18 20:43 75 25 40 12/10/18 20:00 97.9 72 17 118/71 (87) 98 12/10/18 20:00 40 12/10/18 20:00 69 12/10/18 20:00 Mechanical Ventilator 12/10/18 18:55 69 23 40 4/25/19 18:21 112/67 12/10/18 16:32 70 23 40 12/10/18 16:00 Mechanical Ventilator 12/10/18 16:00 97.9 71 21 112/67 (82) 99 12/10/18 16:00 40 12/10/18 16:00 71 12/10/18 14:36 82 30 40 12/10/18 13:24 71 23 40 12/10/18 12:00 97.5 68 24 93/73 (80) 100 12/10/18 12:00 Mechanical Ventilator 12/10/18 12:00 93/73 12/10/18 12:00 70 12/10/18 12:00 40 12/10/18 11:01 99 12/10/18 10:55 80 23 40 12/10/18 10:23 71 136/97 12/10/18 09:17 79 24 40 Intake and Output 12/10/18 12/11/18 19:00 07:00 Intake Total 740 ml 635 ml Balance 740 ml 635 ml Free Water 200 ml 50 ml Tube Feeding 540 ml 585 ml Objective HEAD AND NECK: No JVD. Tracheostomy intact LUNGS: Clear CARDIOVASCULAR: Irregular S1 and S2 with no gallop. Sternotomy is intact Pacemaker in the right subclavian ABDOMEN: Soft.PEG in place EXTREMITIES: 1+ pitting edema Shivam Sharpe MD Dec 11, 2018 09:13
--- NOTE | 2018-12-11 10:52 | GI Progress Note ---
Assessment/Plan Problems: (1) Foot ulcer ICD Codes: L97.509 - Non-pressure chronic ulcer of other part of unspecified foot with unspecified severity SNOMED: 74968451 Qualifiers: Qualified Codes: L97.511 - Non-pressure chronic ulcer of other part of right foot limited to breakdown of skin (2) DM (diabetes mellitus) ICD Codes: E11.9 - Type 2 diabetes mellitus without complications SNOMED: 89773043 (3) Transplant ICD Codes: Z94.9 - Transplanted organ and tissue status, unspecified SNOMED: 059021685 Status: stable Status Narrative Discussed with Dr. Escalera. Assessment/Plan History of liver transplant, currently on Prograf C. difficile negative status post tracheostomy and PEG Infected G-tube site, fu ID recs would care cx >> GRAM NEGATIVE BACILLUS cont GTFs GT site care BID/prn topical abx around GT site per ID HD per nephro cont tacrolimus prn transfusions ppi zofran prn Titrate bowel regimen follow labs supportive care The patient was seen and examined at bedside and all new and available data was reviewed in the patients chart. I agree with the above findings, impression and plan. (Patient seen earlier today. Signature stamp does not reflect patient encounter time.). - Jorge Escalera MD Subjective Subjective Limited, pain around GT site improved Objective Last 24 Hour Vital Signs Date Time Temp Pulse Resp B/P (MAP) Pulse Ox O2 Delivery O2 Flow Rate FiO2 12/11/18 09:05 72 23 40 12/11/18 08:31 66 145/75 12/11/18 08:00 40 12/11/18 08:00 97.5 66 22 145/75 (98) 99 12/11/18 08:00 Mechanical Ventilator 12/11/18 07:44 65 12/11/18 07:04 75 25 40 12/11/18 05:42 111/74 12/11/18 04:35 66 26 40 12/11/18 04:00 40 12/11/18 04:00 63 12/11/18 04:00 Mechanical Ventilator 12/11/18 04:00 97.6 73 22 111/74 (86) 100 12/11/18 02:52 62 23 40 12/11/18 00:46 63 24 40 12/11/18 00:00 64 12/11/18 00:00 Mechanical Ventilator 12/10/18 22:23 69 24 40 12/10/18 21:33 72 118/71 12/10/18 20:43 75 25 40 12/10/18 20:00 97.9 72 17 118/71 (87) 98 12/10/18 20:00 40 12/10/18 20:00 69 12/10/18 20:00 Mechanical Ventilator 12/10/18 18:55 69 23 40 12/10/18 18:21 112/67 12/10/18 16:32 70 23 40 12/10/18 16:00 Mechanical Ventilator 12/10/18 16:00 97.9 71 21 112/67 (82) 99 12/10/18 16:00 40 12/10/18 16:00 71 12/10/18 14:36 82 30 40 12/10/18 13:24 71 23 40 12/10/18 12:00 97.5 68 24 93/73 (80) 100 12/10/18 12:00 Mechanical Ventilator 12/10/18 12:00 93/73 12/10/18 12:00 70 12/10/18 12:00 40 12/10/18 11:01 99 12/10/18 10:55 80 23 40 Intake and Output 12/10/18 12/11/18 19:00 07:00 Intake Total 740 ml 635 ml Balance 740 ml 635 ml Free Water 200 ml 50 ml Tube Feeding 540 ml 585 ml Height (Feet): 5 Height (Inches): 5.00 Weight (Pounds): 218 General Appearance: WD/WN, no apparent distress, alert Cardiovascular: normal rate Respiratory/Chest: normal breath sounds, no respiratory distress Abdominal Exam: normal bowel sounds, non tender, soft, GT site - redness Extremities: non-tender Kelvin Briggs MATERIAL ATTENDANT Dec 11, 2018 10:52
--- NOTE | 2018-12-11 10:52 | Nephrology Progress Note ---
Assessment/Plan Problem List: (1) ESRD (end stage renal disease) on dialysis (2) Foot ulcer (3) CHF (congestive heart failure) Assessment: Ej Fx 20 % (4) Pacemaker (5) Acute respiratory failure Assessment: with Co2 retention Assessment ESRD with high K and SOB on admit Foot ulcer, likely infected High Troponin likely NSTMI Pacer , Pleural effusion s/p CABGS s/p Liver transplant Plan doing PT , improving due HD today GT site infection, topical antibiotic Neuro note appreciated pain med change to dilaudid GT Now has tracheostomy and PEG Adjust BP meds add nitro paste TID HD next Antibiotics by ID start tube feeding / hasPEG per cardio and ID Podiatry and Vascular surgical fu ? DC planning? ALSO COVERING MEDCINE FOR DR BERG Subjective ROS Limited/Unobtainable: No Objective Objective Last 24 Hour Vital Signs Date Time Temp Pulse Resp B/P (MAP) Pulse Ox O2 Delivery O2 Flow Rate FiO2 12/11/18 09:05 72 23 40 12/11/18 08:31 66 145/75 12/11/18 08:00 40 12/11/18 08:00 97.5 66 22 145/75 (98) 99 12/11/18 08:00 Mechanical Ventilator 12/11/18 07:44 65 12/11/18 07:04 75 25 40 12/11/18 05:42 111/74 12/11/18 04:35 66 26 40 12/11/18 04:00 40 12/11/18 04:00 63 12/11/18 04:00 Mechanical Ventilator 12/11/18 04:00 97.6 73 22 111/74 (86) 100 12/11/18 02:52 62 23 40 12/11/18 00:46 63 24 40 12/11/18 00:00 64 12/11/18 00:00 Mechanical Ventilator 12/10/18 22:23 69 24 40 12/10/18 21:33 72 118/71 12/10/18 20:43 75 25 40 12/10/18 20:00 97.9 72 17 118/71 (87) 98 12/10/18 20:00 40 12/10/18 20:00 69 12/10/18 20:00 Mechanical Ventilator 12/10/18 18:55 69 23 40 12/10/18 18:21 112/67 12/10/18 16:32 70 23 40 12/10/18 16:00 Mechanical Ventilator 12/10/18 16:00 97.9 71 21 112/67 (82) 99 12/10/18 16:00 40 12/10/18 16:00 71 12/10/18 14:36 82 30 40 12/10/18 13:24 71 23 40 12/10/18 12:00 97.5 68 24 93/73 (80) 100 12/10/18 12:00 Mechanical Ventilator 12/10/18 12:00 93/73 12/10/18 12:00 70 12/10/18 12:00 40 12/10/18 11:01 99 12/10/18 10:55 80 23 40 Intake and Output 12/10/18 12/11/18 19:00 07:00 Intake Total 740 ml 635 ml Balance 740 ml 635 ml Free Water 200 ml 50 ml Tube Feeding 540 ml 585 ml Height (Feet): 5 Height (Inches): 5.00 Weight (Pounds): 218 General Appearance: no apparent distress EENT: other - trach Cardiovascular: normal rate Respiratory/Chest: decreased breath sounds Abdomen: distended, other - PEg Objective no other change Nakul Stevens MD Dec 11, 2018 10:52
[2018-12-11 12:00] VITALS: BP 116/92
[2018-12-11] MEDS: Acetaminophen 650mg/20.3ml NG PRN (12:44)
--- NOTE | 2018-12-11 13:12 | Neurology Progress Note ---
Interim History Interim History Interim History Mr. Restrepo feels about the same as yesterday. His right foot is less painful. The mind has been clearer. He sat up at the edge of the bed today. He has not walked yet. He is comfortable with his breathing. The right upper extremity is less swollen and painful. He denies any new neurologic symptoms. Review of Systems Neuro Review of Systems Benign. Objective Physical Exam Last Vital Signs Date Time Temp Pulse Resp B/P (MAP) Pulse Ox O2 Delivery O2 Flow Rate FiO2 12/11/18 12:00 97.3 67 20 116/92 (100) 98 12/11/18 12:00 Mechanical Ventilator 12/11/18 11:25 40 Neurologic Exam Objective PHYSICAL EXAMINATION: GENERAL: He is a well-developed and well-nourished, pleasant gentleman, lying in bed connected to a ventilator via tracheostomy. HEAD: Normocephalic and atraumatic. EENT: Examination benign. NECK: No neck rigidity was observed. He did have a tracheostomy. NEUROLOGICAL EXAMINATION: MENTAL STATUS EXAMINATION: He was awake and alert. He was oriented to person, place, and time. He was able to recall 3/3 words immediately, after 1 minute, and after 3 minutes on the second trial. He was able to remember president Trskyler through Mak Keny. His mathematical skills were minimally impaired. His visuospatial function was preserved. SPEECH: Could not be tested, but he was able to mouth words relatively well. LANGUAGE: He was able to comprehend and express himself relatively well using his communication board. CRANIAL NERVES EXAMINATION: II: The visual mckeon were intact to confrontation testing. III, IV & : The external ocular movements were full and the pupils 3 mm in diameter, equal, round, regular, and reactive sluggishly to light. V: He had normal facial sensations, and the temporales, masseters, and pterygoids functioned normally. VII: He had normal facial expressions and no facial asymmetry. VIII: Hearing was decreased bilaterally with worse hearing on the left side compared to the right. IX: The palate moved symmetrically on phonation. X: Could not be tested. XI: The sternocleidomastoids and trapezii functioned normally. XII: The tongue was in the midline without any fasciculations or atrophy. MOTOR SYSTEM: The tone was normal in all four extremities. Examination of muscle mass revealed generalized muscle wasting. Examination of power revealed G 5/5 power except for G 4+/5 power in the iliopsoas muscles bilaterally. SENSORY EXAMINATION: He had intact sensations to light touch. Other sensory modalities could not be tested adequately. REFLEXES: 1+ and bilaterally symmetrical at the biceps, triceps, brachioradialis , and knees, 0 at both ankles. The plantar responses were flexor bilaterally. COORDINATION: He performed well on [id number] testing. STANCE & GAIT: Were deferred. Impression/Recommendations Diagnostic Impression 1. Mr. Gregg Restrepo is a 68-year-old, right-handed, gentleman with past history of multiple medical problems including hypertension, diabetes mellitus, end-stage renal disease for which he is hemodialysis dependent, prior episodes of sepsis, and prior episodes of encephalopathy, who was admitted to [facility] on October 31, 2018. Following that, he has had a stormy hospital course including pneumonia and sepsis, right foot infection, respiratory failure for which he has needed tracheostomy and in addition he has exhibited an alteration in his mental state with some waxing and waning of his mental state. 2. He feels feels about the same as yesterday. His right foot is less painful. The mind has been clearer. He sat up at the edge of the bed today. He has not walked yet. He is comfortable with his breathing. The right upper extremity is less swollen and painful. He denies any new neurologic symptoms. 3. On neurological examination, at this time, he is fully oriented, has mild problems with recent and remote memory, normal visuospatial function, minimally impaired higher cognitive function, and is able to comprehend and express himself well. He does have mild G 4+/5 weakness in the iliopsoas muscles bilaterally, globally diminished deep tendon reflexes with loss of ankle jerks, but no definite focal or lateralizing neurological findings. 4. His latest laboratory data on my initial evaluation revealed that he was anemic with a hemoglobin of 10.8 G. His last blood gas performed on 11/14/2018 revealed that he had a pCO2 elevated at 56.4 with a normal pO2 of 88.3 and normal pH of 7.37. His latest chemistry panel revealed that he was mildly hyponatremic with a sodium of 130, and had a chloride of 90. The BUN was elevated at 75, creatinine elevated at 7.4, glucose elevated at 156, Hemoglobin A1c elevated at 6.9%, Alkaline phosphatase elevated at 131, and ProBNP greater than 35,000. His last B12 level on 11/07/2018 was 723. His last folate on was 18.6. His last TSH on 12/06/2018 was 4.82, which is minimally elevated. 5. The CT scan of the brain performed on 11/10/2018 was benign for acute intracranial pathology. 6. The EEG done on 12/08/18 revealed left temporal dysfunction. 7. The patient's history and neurological examination are most consistent with mild multifactorial encephalopathy, which apparently waxes and wanes, but no definite focal neurological dysfunction. His encephalopathy is better today. 8. He tells me that he had a brain bleed many years ago. I did review his imaging done at [facility] a few years ago and he had closed head injuries with subarachnoid and subdural blood in the past. Recommendations 1. Continue present management. 2. Attempts should be made to correct the patient's toxic metabolic imbalances that have already been observed. 3. Mobilize with PT/OT. 4. As per Dr. Sharpe his Pacemaker is not MRI safe. Pantera Cool M.D., M.S.P.H. Pantera Cool MD Dec 11, 2018 13:12
--- NOTE | 2018-12-11 14:30 | Infectious Diseases Prog Note ---
Assessment/Plan Problems: (1) G-tube site cellulitis Assessment & Plan: culture from the G tube site grew pseudomonas , will continue ciprofloxacin for 7 days , continue local antibiotics as per GI (2) Thrush, oral Assessment & Plan: continue local nystatin , S/P micafungin for three weeks empirically (3) HCV antibody positive Assessment & Plan: no evidence of active infection, with undetectable viral load , suspect due to previous infection , cleared, S/P liver transplant . (4) Foot ulcer Assessment & Plan: in diabetic patient , with MRSA , S/P vancomycin treatment with HD for two weeks , pending vascular eval and possible surgical debridement. bone scan ruled out osteomyelitis of the heel . follow up with burial agent (5) DM (diabetes mellitus) Assessment & Plan: recommend tight glycemic control to keep blood glucose between 100-140 (6) CHF (congestive heart failure) Assessment & Plan: on HD , renal is following, monitor daily weight (7) Encephalopathy acute Assessment & Plan: suspect metabolic, with high urea level, waxing and waning , now improved (8) Severe tongue swelling Assessment & Plan: improving , s/p tracheostomy to protect his airway since respiratory status worsened . now improving, pulmonary is following (9) Pleural effusion Assessment & Plan: recurrent on the right, with lung collapse , S/P thoracentesis X2 with removal of 1.5 cc of clear fluids. PREVIOUS culture were negative with negative cytology Subjective Constitutional: Reports: no symptoms HEENT: Reports: no symptoms Respiratory: Reports: no symptoms Breasts: Reports: no symptoms Cardiovascular: Reports: no symptoms Gastrointestinal/Abdominal: Reports: no symptoms Genitourinary: Reports: no symptoms Neurologic: Reports: no symptoms Psychiatric: Reports: no symptoms Skin: Reports: no symptoms Endocrine: Reports: no symptoms Hematologic: Reports: no symptoms Musculoskeletal: Reports: no symptoms Allergies: Coded Allergies: CEPHALEXIN (Unverified Allergy, Unknown, 02/24/14) SULFAMETHOXAZOLE (Unverified Allergy, Unknown, 02/24/14) TRIMETHOPRIM (Unverified Allergy, Unknown, 02/24/14) Subjective he was comfortable, has no facial swelling or tongue swelling , awake and responsive, no fever or chills, no significant secretions , no SOB . has less thrush on his tongue Objective Vital Signs Last 24 Hour Vital Signs Date Time Temp Pulse Resp B/P (MAP) Pulse Ox O2 Delivery O2 Flow Rate FiO2 4/26/19 13:25 68 26 40 12/11/18 12:22 67 12/11/18 12:00 97.3 67 20 116/92 (100) 98 12/11/18 12:00 Mechanical Ventilator 12/11/18 12:00 116/92 12/11/18 12:00 40 12/11/18 11:25 74 34 40 12/11/18 11:08 99 12/11/18 09:05 72 23 40 12/11/18 08:31 66 145/75 12/11/18 08:00 40 12/11/18 08:00 97.5 66 22 145/75 (98) 99 12/11/18 08:00 Mechanical Ventilator 12/11/18 07:44 65 12/11/18 07:04 75 25 40 12/11/18 05:42 111/74 12/11/18 04:35 66 26 40 12/11/18 04:00 40 12/11/18 04:00 63 12/11/18 04:00 Mechanical Ventilator 12/11/18 04:00 97.6 73 22 111/74 (86) 100 12/11/18 02:52 62 23 40 12/11/18 00:46 63 24 40 12/11/18 00:00 64 12/11/18 00:00 Mechanical Ventilator 12/10/18 22:23 69 24 40 12/10/18 21:33 72 118/71 12/10/18 20:43 75 25 40 12/10/18 20:00 97.9 72 17 118/71 (87) 98 12/10/18 20:00 40 12/10/18 20:00 69 12/10/18 20:00 Mechanical Ventilator 12/10/18 18:55 69 23 40 12/10/18 18:21 112/67 12/10/18 16:32 70 23 40 12/10/18 16:00 Mechanical Ventilator 12/10/18 16:00 97.9 71 21 112/67 (82) 99 12/10/18 16:00 40 12/10/18 16:00 71 12/10/18 14:36 82 30 40 Height (Feet): 5 Height (Inches): 5.00 Weight (Pounds): 218 General Appearance: WD/WN, no acute distress HEENT: normocephalic, atraumatic, anicteric, mucous membranes moist, PERRL Respiratory/Chest: chest wall non-tender, lungs clear, normal breath sounds, no respiratory distress, no accessory muscle use Cardiovascular: normal peripheral pulses, normal rate, regular rhythm, no gallop/murmur, no JVD Abdomen: normal bowel sounds, soft, non tender, no organomegaly, non distended , no mass, no scars Genitourinary: normal external genitalia Extremities: no cyanosis, no clubbing Skin: no rash, no lesions, ulcers 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: alert, oriented x 3, responsive Lymphatic: no neck adenopathy, no groin adenopathy Musculoskeletal: normal muscle bulk, no effusion Current Medications Medications (Trade) Dose Ordered Sig/Aleks Route PRN Reason Start Time Stop Time Status Last Admin Dose Admin Acetaminophen (Tylenol) 650 mg Q4H PRN NG Mild Pain/Temp > 100.5 11/12/18 19:00 12/12/18 18:47 12/11/18 12:44 Aspirin (ASA) 162 mg DAILY GT 12/08/18 09:00 12/20/18 08:59 12/11/18 08:31 Atorvastatin Calcium (Lipitor) 10 mg BEDTIME NG 12/01/18 21:00 12/21/18 20:59 12/10/18 21:33 Bacitracin (Bacitracin) 1 applic EVERY 12 HOURS TOPIC 12/11/18 21:00 01/06/19 17:59 Carvedilol (Coreg) 6.25 mg EVERY 12 HOURS PEG 12/06/18 21:00 01/03/19 20:59 12/10/18 21:33 Ciprofloxacin (Cipro 500mg tab) 500 mg Q24H ORAL 12/10/18 21:00 12/17/18 20:59 12/10/18 21:32 Clotrimazole (Lotrimin) 1 applic BID TOPIC 12/07/18 18:00 01/06/19 17:59 12/11/18 08:31 Dextrose (Dextrose 50%) 25 ml Q30M PRN IV Hypoglycemia 12/01/18 19:30 12/31/18 19:29 Dextrose (Dextrose 50%) 50 ml Q30M PRN IV Hypoglycemia 12/01/18 19:30 12/31/18 19:29 Docusate Sodium (Colace) 100 mg EVERY 8 HOURS PRN GT constipation 11/24/18 18:51 12/20/18 18:50 Hydralazine HCl (Apresoline) 10 mg Q6H PRN GT For High Blood Pressure 12/03/18 16:45 01/02/19 16:44 12/07/18 04:47 Hydromorphone HCl (Dilaudid) 1 mg Q4H PRN GT For Pain 12/07/18 11:30 12/14/18 11:29 12/11/18 10:57 Insulin Aspart (NovoLOG) EVERY 6 HOURS SUBQ 12/02/18 00:00 12/31/18 20:59 12/11/18 05:43 Lactulose (Cephulac) 20 gm THREE TIMES A DAY PRN GT Constipation 11/24/18 18:51 12/23/18 18:50 Lansoprazole (Prevacid) 30 mg BID GT 11/20/18 09:00 12/20/18 08:59 12/11/18 08:30 Nicotine (Nicoderm) 1 patch Q24H TDERMAL 12/01/18 22:15 12/21/18 22:14 12/10/18 22:17 Nitroglycerin (Nitro-Bid) 1 inch TID@0600,1200,1800 TOPIC 12/07/18 12:00 01/06/19 11:59 12/11/18 05:42 Olanzapine (ZyPREXA) 2.5 mg BEDTIME GT 12/05/18 21:00 12/13/18 20:59 12/10/18 21:32 Olanzapine (ZyPREXA) 2.5 mg Q6H PRN ORAL agitation 11/15/18 23:00 12/15/18 22:59 12/06/18 00:23 Polyethylene Glycol (Miralax) 17 gm DAILYPRN PRN NG Constipation 11/12/18 19:00 12/11/18 15:29 11/13/18 05:30 Sevelamer Carbonate (Renvela) 800 mg Q8HR GT 11/20/18 14:00 12/20/18 13:59 12/11/18 05:42 Tacrolimus (Prograf) 2 mg MoWeFr@0000,1200 ORAL 12/07/18 00:00 12/21/18 00:00 4/26/19 12:10 Tacrolimus (Prograf) 2 mg TrudiNaren@0900,2100 ORAL 12/05/18 21:00 01/04/19 20:59 12/10/18 21:38 Francois Landis M.D. Dec 11, 2018 14:30
--- NOTE | 2018-12-11 14:31 | Pulmonology Progress Note ---
Assessment/Plan Assessment/Plan 1. Resp failure, hypercapneic 2. End-stage renal disease, on dialysis, status post multiple upper extremity vascular procedures. 3. Coronary artery bypass surgery. 4. Diabetes. 5. Dysphonia, tongue swelling, resolved; s/p trach PLAN: only tolerating weaning x 5 min w IMV tolerates feeds disc w RN dc when bed available case mgmt working on placement I will see less often Subjective Constitutional: Reports: no symptoms Respiratory: Denies: shortness of breath Allergies: Coded Allergies: CEPHALEXIN (Unverified Allergy, Unknown, 02/24/14) SULFAMETHOXAZOLE (Unverified Allergy, Unknown, 02/24/14) TRIMETHOPRIM (Unverified Allergy, Unknown, 02/24/14) Objective Last 24 Hour Vital Signs Date Time Temp Pulse Resp B/P (MAP) Pulse Ox O2 Delivery O2 Flow Rate FiO2 12/11/18 13:25 68 26 40 12/11/18 12:22 67 12/11/18 12:00 97.3 67 20 116/92 (100) 98 12/11/18 12:00 Mechanical Ventilator 12/11/18 12:00 116/92 12/11/18 12:00 40 12/11/18 11:25 74 34 40 12/11/18 11:08 99 12/11/18 09:05 72 23 40 12/11/18 08:31 66 145/75 12/11/18 08:00 40 12/11/18 08:00 97.5 66 22 145/75 (98) 99 12/11/18 08:00 Mechanical Ventilator 12/11/18 07:44 65 12/11/18 07:04 75 25 40 12/11/18 05:42 111/74 12/11/18 04:35 66 26 40 12/11/18 04:00 40 12/11/18 04:00 63 12/11/18 04:00 Mechanical Ventilator 12/11/18 04:00 97.6 73 22 111/74 (86) 100 12/11/18 02:52 62 23 40 12/11/18 00:46 63 24 40 12/11/18 00:00 64 12/11/18 00:00 Mechanical Ventilator 12/10/18 22:23 69 24 40 12/10/18 21:33 72 118/71 12/10/18 20:43 75 25 40 12/10/18 20:00 97.9 72 17 118/71 (87) 98 12/10/18 20:00 40 12/10/18 20:00 69 12/10/18 20:00 Mechanical Ventilator 12/10/18 18:55 69 23 40 12/10/18 18:21 112/67 12/10/18 16:32 70 23 40 12/10/18 16:00 Mechanical Ventilator 12/10/18 16:00 97.9 71 21 112/67 (82) 99 12/10/18 16:00 40 12/10/18 16:00 71 12/10/18 14:36 82 30 40 Intake and Output 12/10/18 12/11/18 19:00 07:00 Intake Total 740 ml 635 ml Balance 740 ml 635 ml Free Water 200 ml 50 ml Tube Feeding 540 ml 585 ml Objective trach on vent General Appearance: no acute distress HEENT: atraumatic Respiratory/Chest: lungs clear Cardiovascular: normal rate Current Medications Medications (Trade) Dose Ordered Sig/Aleks Route PRN Reason Start Time Stop Time Status Last Admin Dose Admin Acetaminophen (Tylenol) 650 mg Q4H PRN NG Mild Pain/Temp > 100.5 11/12/18 19:00 12/12/18 18:47 12/11/18 12:44 Aspirin (ASA) 162 mg DAILY GT 12/08/18 09:00 12/20/18 08:59 12/11/18 08:31 Atorvastatin Calcium (Lipitor) 10 mg BEDTIME NG 12/01/18 21:00 12/21/18 20:59 12/10/18 21:33 Bacitracin (Bacitracin) 1 applic EVERY 12 HOURS TOPIC 12/11/18 21:00 01/06/19 17:59 Carvedilol (Coreg) 6.25 mg EVERY 12 HOURS PEG 12/06/18 21:00 01/03/19 20:59 12/10/18 21:33 Ciprofloxacin (Cipro 500mg tab) 500 mg Q24H ORAL 12/10/18 21:00 12/17/18 20:59 12/10/18 21:32 Clotrimazole (Lotrimin) 1 applic BID TOPIC 12/07/18 18:00 01/06/19 17:59 12/11/18 08:31 Dextrose (Dextrose 50%) 25 ml Q30M PRN IV Hypoglycemia 12/01/18 19:30 12/31/18 19:29 Dextrose (Dextrose 50%) 50 ml Q30M PRN IV Hypoglycemia 12/01/18 19:30 12/31/18 19:29 Docusate Sodium (Colace) 100 mg EVERY 8 HOURS PRN GT constipation 11/24/18 18:51 12/20/18 18:50 Hydralazine HCl (Apresoline) 10 mg Q6H PRN GT For High Blood Pressure 12/03/18 16:45 01/02/19 16:44 12/07/18 04:47 Hydromorphone HCl (Dilaudid) 1 mg Q4H PRN GT For Pain 12/07/18 11:30 12/14/18 11:29 12/11/18 10:57 Insulin Aspart (NovoLOG) EVERY 6 HOURS SUBQ 12/02/18 00:00 12/31/18 20:59 12/11/18 05:43 Lactulose (Cephulac) 20 gm THREE TIMES A DAY PRN GT Constipation 11/24/18 18:51 12/23/18 18:50 Lansoprazole (Prevacid) 30 mg BID GT 11/20/18 09:00 12/20/18 08:59 12/11/18 08:30 Nicotine (Nicoderm) 1 patch Q24H TDERMAL 12/01/18 22:15 12/21/18 22:14 12/10/18 22:17 Nitroglycerin (Nitro-Bid) 1 inch TID@0600,1200,1800 TOPIC 12/07/18 12:00 01/06/19 11:59 12/11/18 05:42 Olanzapine (ZyPREXA) 2.5 mg BEDTIME GT 12/05/18 21:00 12/13/18 20:59 12/10/18 21:32 Olanzapine (ZyPREXA) 2.5 mg Q6H PRN ORAL agitation 11/15/18 23:00 12/15/18 22:59 12/06/18 00:23 Polyethylene Glycol (Miralax) 17 gm DAILYPRN PRN NG Constipation 11/12/18 19:00 12/11/18 15:29 11/13/18 05:30 Sevelamer Carbonate (Renvela) 800 mg Q8HR GT 11/20/18 14:00 12/20/18 13:59 12/11/18 05:42 Tacrolimus (Prograf) 2 mg MoWeFr@0000,1200 ORAL 12/07/18 00:00 12/21/18 00:00 12/11/18 12:10 Tacrolimus (Prograf) 2 mg SuTuThSa@0900,2100 ORAL 12/05/18 21:00 01/04/19 20:59 12/10/18 21:38 Saroj Mendoza MD Dec 11, 2018 14:31
--- NOTE | 2018-12-11 15:29 | General Progress Note ---
Assessment/Plan Assessment/Plan: Assessment and Recs: # Coagulopathy likely secondary to decreased Vitk dependent cofactors (high INR , PT) --> monitor closely for any evidence of bleeding --> hold off on mixing study at this time unless severe changes noted --> VIT K on prn basis sq can be administered # Anemia of chronic disease due to underlying chronic medical issues, multifactorial as well as kidney disease --> Anemia workup has been ordered, rule out gi bleed, seen by gi, also reviewed w/u --> HAS BEEN reordered since refusing --> No evidence of hemolysis is noted, peripheral smear has been reviewed. --> Hgb goal >7. Transfuse prn. --> Epogen can be consider if hgb downtrends --> Medications have been reviewed --> evaluate with Gi team prn --> transfuse if hgb is < 7 (will trend CBC daily) # Failure to thrive is likely related to poor overall status, poor functional status --> with multiple decub ulcerations that are noted, seen by id/surgery --> s/p trach as well --> cea is wnl # Acute respiratory failure is now s/p trach to vent --> as per surgery recs # Ground glass opacity present on imaging of lung --> with pleural effusions, s/p drainage at this time --> no evidence for malignancy is noted # Pleural effusion --> s/p thoracentesis # Hyperkalemia --> kayxelate has been given # Renal failure --> per renal recs, appreciated --> getting hd as per schedule # Altered level of consciousness ==> currently as per baseline The timing of this note does not necessarily reflect the time of the patient was seen. Greatly appreciate consultation! Subjective Constitutional: Denies: no symptoms, chills, diaphoresis, fever, malaise, weakness, other Cardiovascular: Denies: no symptoms, chest pain, edema, irregular heart rate, lightheadedness, palpitations, syncope, other Respiratory: Denies: no symptoms, cough, orthopnea, shortness of breath, SOB with excertion, SOB at rest, sputum, stridor, wheezing, other Gastrointestinal/Abdominal: Denies: no symptoms, abdomen distended, abdominal pain, black stools, tarry stools, blood in stool, constipated, diarrhea, difficulty swallowing, nausea, poor appetite, poor fluid intake, rectal bleeding , vomiting, other Genitourinary: Denies: no symptoms, burning, discharge, frequency, flank pain, hematuria, incontinence, pain, urgency, other Endocrine: Denies: no symptoms, excessive sweating, flushing, intolerance to cold, intolerance to heat, increased hunger, increased thirst, increased urine, unexplained weight gain, unexplained weight loss, other Hematologic/Lymphatic: Denies: no symptoms, anemia, easy bleeding, easy bruising, other Allergies: Coded Allergies: CEPHALEXIN (Unverified Allergy, Unknown, 02/24/14) SULFAMETHOXAZOLE (Unverified Allergy, Unknown, 02/24/14) TRIMETHOPRIM (Unverified Allergy, Unknown, 02/24/14) Subjective 11/30: comfortable, on abx, no complaints, on t-piece 12/01: to have hd done potentially tomorrow, is more alert/awake 12/02: no major bleeding, hgb remains approx 11, no changes 12/03: no events, breathing mildly better, hgb is improved 12/04: on vent/trach, no major changes, sr ekg 12/10: small amount of secretions, on trach/vent, no issues otherwise 12/11: no major issues, no complaints, labs reviewed, no sig changes Objective Last 24 Hour Vital Signs Date Time Temp Pulse Resp B/P (MAP) Pulse Ox O2 Delivery O2 Flow Rate FiO2 12/11/18 15:07 66 26 40 12/11/18 13:25 68 26 40 12/11/18 12:22 67 12/11/18 12:00 97.3 67 20 116/92 (100) 98 12/11/18 12:00 Mechanical Ventilator 12/11/18 12:00 116/92 12/11/18 12:00 40 12/11/18 11:25 74 34 40 12/11/18 11:08 99 12/11/18 09:05 72 23 40 12/11/18 08:31 66 145/75 12/11/18 08:00 40 12/11/18 08:00 97.5 66 22 145/75 (98) 99 12/11/18 08:00 Mechanical Ventilator 12/11/18 07:44 65 12/11/18 07:04 75 25 40 12/11/18 05:42 111/74 12/11/18 04:35 66 26 40 12/11/18 04:00 40 12/11/18 04:00 63 12/11/18 04:00 Mechanical Ventilator 12/11/18 04:00 97.6 73 22 111/74 (86) 100 12/11/18 02:52 62 23 40 12/11/18 00:46 63 24 40 12/11/18 00:00 64 12/11/18 00:00 Mechanical Ventilator 12/10/18 22:23 69 24 40 12/10/18 21:33 72 118/71 12/10/18 20:43 75 25 40 12/10/18 20:00 97.9 72 17 118/71 (87) 98 12/10/18 20:00 40 12/10/18 20:00 69 12/10/18 20:00 Mechanical Ventilator 12/10/18 18:55 69 23 40 12/10/18 18:21 112/67 12/10/18 16:32 70 23 40 12/10/18 16:00 Mechanical Ventilator 12/10/18 16:00 97.9 71 21 112/67 (82) 99 12/10/18 16:00 40 12/10/18 16:00 71 Intake and Output 12/10/18 12/11/18 19:00 07:00 Intake Total 740 ml 635 ml Balance 740 ml 635 ml Free Water 200 ml 50 ml Tube Feeding 540 ml 585 ml Height (Feet): 5 Height (Inches): 5.00 Weight (Pounds): 218 Objective PE General Appearance: mild distress, moderate distress Lines, tubes and drains: peripheral HEENT: EOMI, thrush, tonsils swollen ++trach Neck: normal inspection Respiratory/Chest: decreased breath sounds, accessory muscle use Cardiovascular/Chest: tachycardia Abdomen: soft, no organomegaly, no mass, ++ peg Extremities: other Skin Exam: warm/dry, rash Neurologic: alert, responsive Zacarias Khoury MD Dec 11, 2018 15:29
[2018-12-11 16:00] VITALS: BP 119/62
[2018-12-11 16:08] LABS: BASOPHILS % (AUTO) 0.8 % (0.0-2.0); HEMATOCRIT 31.4 % (42.0-52.0); HEMOGLOBIN 10.2 G/DL (14.2-18.0); LYMPHOCYTES % (AUTO) 21.9 % (20.0-45.0); MEAN CORPUSCULAR VOLUME 77 FL (80-99); NEUTROPHILS % (AUTO) 73.3 % (45.0-75.0); PLATELET COUNT 185 K/UL (150-450); RED BLOOD COUNT 4.08 M/UL (4.70-6.10); WHITE BLOOD COUNT 7.4 K/UL (4.8-10.8)
[2018-12-11 16:21] LABS: AMMONIA 15 umol/L (11-32)
[2018-12-11 16:34] LABS: ALANINE AMINOTRANSFERASE 10 U/L (12-78); ALBUMIN/GLOBULIN RATIO 0.5 (1.0-2.7); ALKALINE PHOSPHATASE 104 U/L (46-116); ANION GAP 8 mmol/L (5-15); ASPARTATE AMINO TRANSFERASE 13 U/L (15-37); BILIRUBIN,TOTAL 0.3 MG/DL (0.2-1.0); BLOOD UREA NITROGEN 63 mg/dL (7-18); CARBON DIOXIDE 29 MMOL/L (21-32); CHLORIDE 92 MMOL/L (98-107); GAMMA GLUTAMYL TRANSPEPTIDASE 19 U/L (5-85); PHOSPHORUS 4.1 MG/DL (2.5-4.9); POTASSIUM 4.5 MMOL/L (3.5-5.1); SODIUM 129 MMOL/L (136-145)
[2018-12-11 19:56] VITALS: BP 132/82
[2018-12-11] MEDS: OLANZapine 2.5mg tab GT SCH (20:09)
[2018-12-11] MEDS: Ciprofloxacin 500mg tab ORAL SCH (20:10)
--- NOTE | 2018-12-11 21:44 | Psych Consult Progress Note ---
Psychiatry Progress Note Psychiatry Progress Note Subjective the pt has episodes of confusion the pt gets anxious Medications Current Medications Medications (Trade) Dose Ordered Sig/Aleks Route PRN Reason Start Time Stop Time Status Last Admin Dose Admin Acetaminophen (Tylenol) 650 mg Q4H PRN NG Mild Pain/Temp > 100.5 11/12/18 19:00 12/12/18 18:47 12/11/18 12:44 Aspirin (ASA) 162 mg DAILY GT 12/08/18 09:00 12/20/18 08:59 12/11/18 08:31 Atorvastatin Calcium (Lipitor) 10 mg BEDTIME NG 12/01/18 21:00 12/21/18 20:59 12/11/18 20:09 Bacitracin (Bacitracin) 1 applic EVERY 12 HOURS TOPIC 12/11/18 21:00 01/06/19 17:59 12/11/18 20:09 Carvedilol (Coreg) 6.25 mg EVERY 12 HOURS PEG 12/06/18 21:00 01/03/19 20:59 12/11/18 20:09 Ciprofloxacin (Cipro 500mg tab) 500 mg Q24H ORAL 12/10/18 21:00 12/17/18 20:59 12/11/18 20:10 Clotrimazole (Lotrimin) 1 applic BID TOPIC 12/07/18 18:00 01/06/19 17:59 12/11/18 18:07 Dextrose (Dextrose 50%) 25 ml Q30M PRN IV Hypoglycemia 12/01/18 19:30 12/31/18 19:29 Dextrose (Dextrose 50%) 50 ml Q30M PRN IV Hypoglycemia 12/01/18 19:30 12/31/18 19:29 Docusate Sodium (Colace) 100 mg EVERY 8 HOURS PRN GT constipation 11/24/18 18:51 12/20/18 18:50 Hydralazine HCl (Apresoline) 10 mg Q6H PRN GT For High Blood Pressure 12/03/18 16:45 01/02/19 16:44 12/07/18 04:47 Hydromorphone HCl (Dilaudid) 1 mg Q4H PRN GT For Pain 12/07/18 11:30 12/14/18 11:29 12/11/18 20:10 Insulin Aspart (NovoLOG) EVERY 6 HOURS SUBQ 12/02/18 00:00 12/31/18 20:59 12/11/18 05:43 Lactulose (Cephulac) 20 gm THREE TIMES A DAY PRN GT Constipation 11/24/18 18:51 12/23/18 18:50 Lansoprazole (Prevacid) 30 mg BID GT 11/20/18 09:00 12/20/18 08:59 12/11/18 08:30 Nicotine (Nicoderm) 1 patch Q24H TDERMAL 12/01/18 22:15 12/21/18 22:14 12/11/18 21:15 Nitroglycerin (Nitro-Bid) 1 inch TID@0600,1200,1800 TOPIC 12/07/18 12:00 01/06/19 11:59 12/11/18 05:42 Olanzapine (ZyPREXA) 2.5 mg BEDTIME GT 12/05/18 21:00 12/13/18 20:59 12/11/18 20:09 Olanzapine (ZyPREXA) 2.5 mg Q6H PRN ORAL agitation 11/15/18 23:00 12/15/18 22:59 12/06/18 00:23 Sevelamer Carbonate (Renvela) 800 mg Q8HR GT 11/20/18 14:00 12/20/18 13:59 12/11/18 21:15 Tacrolimus (Prograf) 2 mg MoWeFr@0000,1200 ORAL 12/07/18 00:00 12/21/18 00:00 12/11/18 12:10 Tacrolimus (Prograf) 2 mg SuTuThSa@0900,2100 ORAL 12/05/18 21:00 01/04/19 20:59 12/10/18 21:38 Allergies: Coded Allergies: CEPHALEXIN (Unverified Allergy, Unknown, 02/24/14) SULFAMETHOXAZOLE (Unverified Allergy, Unknown, 02/24/14) TRIMETHOPRIM (Unverified Allergy, Unknown, 02/24/14) Objective Data Height (Feet): 5 Height (Inches): 5.00 Weight (Pounds): 218 General Appearance: WD/WN, no apparent distress, alert Appearance: disheveled Behavior Mannerisms: good eye contact Mental Status Exam - Affect: blunted Mental Status Exam - Thought P: no abnormalities Mental Status Exam - Thought C: no abnormalities Mental Status Exam - Suicidal: not present Assessment/Plan Problem List: (1) Encephalopathy acute ICD Codes: G93.40 - Encephalopathy, unspecified SNOMED: 12329775, 100595689 Status: stable Assessment/Plan: Zyprexa 2.5mg po qhs haldol IM prn the pt lacks capacity ativan 1mg gt prior to weaning off from vent MRI to rule out stroke however the pt is intubated Jeffrey Lala MD Dec 11, 2018 21:44
[2018-12-12] VITALS: BP 152/86
[2018-12-12] MEDS: HYDROmorphone 2mg tab GT PRN ×6 (00:14→22:36)
[2018-12-12 04:00] VITALS: BP 143/68
[2018-12-12] MEDS: Renvela 800mg Pkt GT SCH ×4 (05:17→22:35)
[2018-12-12] MEDS: NovoLOG Insulin Flexpen SUBQ SCH ×4 (05:17→23:45)
[2018-12-12] MEDS: Nitroglycerin 2% oint pkt TOPIC SCH ×3 (05:18→17:27)
[2018-12-12 08:00] VITALS: BP 149/70
[2018-12-12] MEDS: Aspirin Baby 81mg GT SCH (08:31)
[2018-12-12] MEDS: Bacitracin Oint UD TOPIC SCH ×2 (08:31→20:22)
[2018-12-12] MEDS: Carvedilol 6.25mg Tab PEG SCH ×2 (08:32→20:21)
[2018-12-12] MEDS ORDERED: D5NS 1000ml IV ONE (10:08)
--- NOTE | 2018-12-12 10:34 | General Progress Note ---
Assessment/Plan Problem List: (1) Transplant ICD Codes: Z94.9 - Transplanted organ and tissue status, unspecified SNOMED: 405805634 (2) HTN (hypertension) ICD Codes: I10 - Essential (primary) hypertension SNOMED: 43593629 (3) Pacemaker ICD Codes: Z95.0 - Presence of cardiac pacemaker SNOMED: 662292071 (4) CHF (congestive heart failure) ICD Codes: I50.9 - Heart failure, unspecified SNOMED: 65490494 (5) DM (diabetes mellitus) ICD Codes: E11.9 - Type 2 diabetes mellitus without complications SNOMED: 54882153 (6) Foot ulcer ICD Codes: L97.509 - Non-pressure chronic ulcer of other part of unspecified foot with unspecified severity SNOMED: 32657168 Qualifiers: Qualified Codes: L97.511 - Non-pressure chronic ulcer of other part of right foot limited to breakdown of skin (7) ESRD (end stage renal disease) on dialysis ICD Codes: N18.6 - End stage renal disease; Z99.2 - Dependence on renal dialysis SNOMED: 096264182 Status: stable Assessment/Plan: History of liver transplant, currently on Prograf C. difficile negative status post tracheostomy and PEG Infected G-tube site, fu ID recs would care cx >> GRAM NEGATIVE BACILLUS cont GTFs GT site care BID/prn topical abx around GT site per ID HD per nephro cont tacrolimus prn transfusions ppi zofran prn Titrate bowel regimen follow labs supportive ca Subjective ROS Limited/Unobtainable: No Allergies: Coded Allergies: CEPHALEXIN (Unverified Allergy, Unknown, 02/24/14) SULFAMETHOXAZOLE (Unverified Allergy, Unknown, 02/24/14) TRIMETHOPRIM (Unverified Allergy, Unknown, 02/24/14) Subjective he pulled his NGT again Objective Last 24 Hour Vital Signs Date Time Temp Pulse Resp B/P (MAP) Pulse Ox O2 Delivery O2 Flow Rate FiO2 12/12/18 10:17 87 34 40 12/12/18 10:17 99 12/12/18 08:43 71 27 40 12/12/18 08:32 78 149/70 12/12/18 08:00 97.9 78 25 149/70 (96) 100 12/12/18 08:00 Mechanical Ventilator 12/12/18 08:00 40 12/12/18 07:54 75 12/12/18 07:29 73 22 40 12/12/18 05:30 77 23 40 12/12/18 05:18 143/68 12/12/18 04:00 Mechanical Ventilator 12/12/18 04:00 97.5 81 23 143/68 (93) 100 12/12/18 04:00 40 12/12/18 03:36 81 12/12/18 02:38 71 26 40 12/12/18 01:01 69 29 40 12/12/18 00:00 97.7 83 24 152/86 (108) 100 12/12/18 00:00 40 12/12/18 00:00 Mechanical Ventilator 12/11/18 23:46 81 12/11/18 23:24 71 27 40 12/11/18 21:12 68 24 40 12/11/18 20:09 71 132/82 12/11/18 20:00 40 12/11/18 20:00 Mechanical Ventilator 12/11/18 19:56 97.7 71 22 132/82 (99) 100 12/11/18 19:26 74 12/11/18 19:22 72 23 40 12/11/18 17:25 69 22 40 12/11/18 16:00 40 12/11/18 16:00 97.5 74 24 119/62 (81) 100 12/11/18 16:00 Mechanical Ventilator 12/11/18 15:26 72 12/11/18 15:07 66 26 40 12/11/18 13:25 68 26 40 12/11/18 12:22 67 12/11/18 12:00 97.3 67 20 116/92 (100) 98 12/11/18 12:00 Mechanical Ventilator 12/11/18 12:00 116/92 12/11/18 12:00 40 12/11/18 11:25 74 34 40 12/11/18 11:08 99 Intake and Output 12/11/18 12/12/18 19:00 07:00 Intake Total 720 ml 590 ml Output Total 1000 ml Balance -280 ml 590 ml Free Water 50 ml Tube Feeding 540 ml 540 ml Other 180 ml Hemodialysis UF 1000 ml Laboratory Tests 12/11/18 15:55: White Blood Count 7.4, Red Blood Count 4.08L, Hemoglobin 10.2L, Hematocrit 31.4L , Mean Corpuscular Volume 77L, Mean Corpuscular Hemoglobin 25.0L, Mean Corpuscular Hemoglobin Concent 32.5, Red Cell Distribution Width 16.0H, Platelet Count 185, Mean Platelet Volume 5.7L, Neutrophils (%) (Auto) 73.3, Lymphocytes (%) (Auto) 21.9, Monocytes (%) (Auto) 4.0, Eosinophils (%) (Auto) 0.0, Basophils (%) (Auto) 0.8, Sodium Level 129L, Potassium Level 4.5, Chloride Level 92L, Carbon Dioxide Level 29, Anion Gap 8, Blood Urea Nitrogen 63H, Creatinine 7.0H, Estimat Glomerular Filtration Rate 7.9, Glucose Level 154H, Calcium Level 9.0, Phosphorus Level 4.1, Magnesium Level 2.3, Total Bilirubin 0.3, Gamma Glutamyl Transpeptidase 19, Aspartate Amino Transf (AST/SGOT) 13L, Alanine Aminotransferase (ALT/SGPT) 10L, Alkaline Phosphatase 104, Ammonia 15, Troponin I 0.059H, C-Reactive Protein, Quantitative 11.6H, Pro-B-Type Natriuretic Peptide > 35029O, Total Protein 6.2L, Albumin 2.0L, Globulin 4.2, Albumin/Globulin Ratio 0.5L Height (Feet): 5 Height (Inches): 5.00 Weight (Pounds): 218 General Appearance: no apparent distress EENT: normal ENT inspection Neck: supple Cardiovascular: normal rate Respiratory/Chest: decreased breath sounds Abdomen: normal bowel sounds, non tender, soft Extremities: non-tender Jorge Escalera MD Dec 12, 2018 10:34
[2018-12-12 12:00] VITALS: BP 149/85
--- NOTE | 2018-12-12 12:10 | Nephrology Progress Note ---
Assessment/Plan Problem List: (1) ESRD (end stage renal disease) on dialysis (2) Foot ulcer (3) CHF (congestive heart failure) Assessment: Ej Fx 20 % (4) Pacemaker (5) Acute respiratory failure Assessment: with Co2 retention Assessment ESRD with high K and SOB on admit Foot ulcer, likely infected High Troponin likely NSTMI Pacer , Pleural effusion s/p CABGS s/p Liver transplant Plan doing PT , improving HD 12/11 next HD 12/14 GT site infection, topical antibiotic Neuro note appreciated placement in process pain med change to dilaudid GT Now has tracheostomy and PEG Adjust BP meds add nitro paste TID HD next Antibiotics by ID start tube feeding / hasPEG per cardio and ID Podiatry and Vascular surgical fu ? DC planning? ALSO COVERING MEDCINE FOR DR BERG Subjective ROS Limited/Unobtainable: No Constitutional: Reports: other - interactive despite of trach - vent Objective Objective Last 24 Hour Vital Signs Date Time Temp Pulse Resp B/P (MAP) Pulse Ox O2 Delivery O2 Flow Rate FiO2 12/12/18 10:40 72 32 40 12/12/18 10:17 87 34 40 12/12/18 10:17 99 12/12/18 08:43 71 27 40 12/12/18 08:32 78 149/70 12/12/18 08:00 97.9 78 25 149/70 (96) 100 12/12/18 08:00 Mechanical Ventilator 12/12/18 08:00 40 12/12/18 07:54 75 12/12/18 07:29 73 22 40 12/12/18 05:30 77 23 40 12/12/18 05:18 143/68 12/12/18 04:00 Mechanical Ventilator 12/12/18 04:00 97.5 81 23 143/68 (93) 100 12/12/18 04:00 40 12/12/18 03:36 81 12/12/18 02:38 71 26 40 12/12/18 01:01 69 29 40 12/12/18 00:00 97.7 83 24 152/86 (108) 100 12/12/18 00:00 40 12/12/18 00:00 Mechanical Ventilator 12/11/18 23:46 81 12/11/18 23:24 71 27 40 12/11/18 21:12 68 24 40 12/11/18 20:09 71 132/82 12/11/18 20:00 40 12/11/18 20:00 Mechanical Ventilator 12/11/18 19:56 97.7 71 22 132/82 (99) 100 12/11/18 19:26 74 12/11/18 19:22 72 23 40 12/11/18 17:25 69 22 40 12/11/18 16:00 40 12/11/18 16:00 97.5 74 24 119/62 (81) 100 12/11/18 16:00 Mechanical Ventilator 12/11/18 15:26 72 12/11/18 15:07 66 26 40 12/11/18 13:25 68 26 40 12/11/18 12:22 67 Intake and Output 12/11/18 12/12/18 19:00 07:00 Intake Total 720 ml 590 ml Output Total 1000 ml Balance -280 ml 590 ml Free Water 50 ml Tube Feeding 540 ml 540 ml Other 180 ml Hemodialysis UF 1000 ml Laboratory Tests 12/11/18 15:55: White Blood Count 7.4, Red Blood Count 4.08L, Hemoglobin 10.2L, Hematocrit 31.4L , Mean Corpuscular Volume 77L, Mean Corpuscular Hemoglobin 25.0L, Mean Corpuscular Hemoglobin Concent 32.5, Red Cell Distribution Width 16.0H, Platelet Count 185, Mean Platelet Volume 5.7L, Neutrophils (%) (Auto) 73.3, Lymphocytes (%) (Auto) 21.9, Monocytes (%) (Auto) 4.0, Eosinophils (%) (Auto) 0.0, Basophils (%) (Auto) 0.8, Sodium Level 129L, Potassium Level 4.5, Chloride Level 92L, Carbon Dioxide Level 29, Anion Gap 8, Blood Urea Nitrogen 63H, Creatinine 7.0H, Estimat Glomerular Filtration Rate 7.9, Glucose Level 154H, Calcium Level 9.0, Phosphorus Level 4.1, Magnesium Level 2.3, Total Bilirubin 0.3, Gamma Glutamyl Transpeptidase 19, Aspartate Amino Transf (AST/SGOT) 13L, Alanine Aminotransferase (ALT/SGPT) 10L, Alkaline Phosphatase 104, Ammonia 15, Troponin I 0.059H, C-Reactive Protein, Quantitative 11.6H, Pro-B-Type Natriuretic Peptide > 96072W, Total Protein 6.2L, Albumin 2.0L, Globulin 4.2, Albumin/Globulin Ratio 0.5L Height (Feet): 5 Height (Inches): 5.00 Weight (Pounds): 218 General Appearance: no apparent distress Cardiovascular: normal rate Respiratory/Chest: decreased breath sounds Abdomen: soft, distended Objective no other change Nakul Stevens MD Dec 12, 2018 12:10
--- NOTE | 2018-12-12 14:07 | Neurology Progress Note ---
Interim History Interim History Interim History Mr. Restrepo feels very short of breath. He is undergoing a weaning trial. Otherwise he feels about the same as yesterday. His right foot is less painful. The mind has been clearer. He has not been out of bed or at the edge of the bed today. He has not walked yet. The right upper extremity is less swollen and less painful. He denies any new neurologic symptoms. Review of Systems Neuro Review of Systems Benign. Objective Physical Exam Last Vital Signs Date Time Temp Pulse Resp B/P (MAP) Pulse Ox O2 Delivery O2 Flow Rate FiO2 12/12/18 12:29 149/70 12/12/18 12:00 77 12/12/18 12:00 98.3 28 100 12/12/18 12:00 40 12/12/18 12:00 Mechanical Ventilator Laboratory Tests Test 12/11/18 15:55 White Blood Count 7.4 K/UL (4.8-10.8) Red Blood Count 4.08 M/UL (4.70-6.10) L Hemoglobin 10.2 G/DL (14.2-18.0) L Hematocrit 31.4 % (42.0-52.0) L Mean Corpuscular Volume 77 FL (80-99) L Mean Corpuscular Hemoglobin 25.0 PG (27.0-31.0) L Mean Corpuscular Hemoglobin Concent 32.5 G/DL (32.0-36.0) Red Cell Distribution Width 16.0 % (11.6-14.8) H Platelet Count 185 K/UL (150-450) Mean Platelet Volume 5.7 FL (6.5-10.1) L Neutrophils (%) (Auto) 73.3 % (45.0-75.0) Lymphocytes (%) (Auto) 21.9 % (20.0-45.0) Monocytes (%) (Auto) 4.0 % (1.0-10.0) Eosinophils (%) (Auto) 0.0 % (0.0-3.0) Basophils (%) (Auto) 0.8 % (0.0-2.0) Sodium Level 129 MMOL/L (136-145) L Potassium Level 4.5 MMOL/L (3.5-5.1) Chloride Level 92 MMOL/L (98-107) L Carbon Dioxide Level 29 MMOL/L (21-32) Anion Gap 8 mmol/L (5-15) Blood Urea Nitrogen 63 mg/dL (7-18) H Creatinine 7.0 MG/DL (0.55-1.30) H Estimat Glomerular Filtration Rate 7.9 mL/min (>60) Glucose Level 154 MG/DL (74-106) H Calcium Level 9.0 MG/DL (8.5-10.1) Phosphorus Level 4.1 MG/DL (2.5-4.9) Magnesium Level 2.3 MG/DL (1.8-2.4) Total Bilirubin 0.3 MG/DL (0.2-1.0) Gamma Glutamyl Transpeptidase 19 U/L (5-85) Aspartate Amino Transf (AST/SGOT) 13 U/L (15-37) L Alanine Aminotransferase (ALT/SGPT) 10 U/L (12-78) L Alkaline Phosphatase 104 U/L (46-116) Ammonia 15 umol/L (11-32) Troponin I 0.059 ng/mL (0.000-0.056) C-Reactive Protein, Quantitative 11.6 mg/dL (0.00-0.90) H Pro-B-Type Natriuretic Peptide > 55346 pg/mL (0-125) H Total Protein 6.2 G/DL (6.4-8.2) L Albumin 2.0 G/DL (3.4-5.0) L Globulin 4.2 g/dL Albumin/Globulin Ratio 0.5 (1.0-2.7) L Neurologic Exam Objective PHYSICAL EXAMINATION: GENERAL: He is a well-developed and well-nourished, pleasant gentleman, lying in bed connected to a ventilator via tracheostomy. HEAD: Normocephalic and atraumatic. EENT: Examination benign. NECK: No neck rigidity was observed. He did have a tracheostomy. NEUROLOGICAL EXAMINATION: MENTAL STATUS EXAMINATION: He was awake and alert. He was oriented to person, place, and time. He was able to recall 3/3 words immediately, after 1 minute, and after 3 minutes on the second trial. He was able to remember president Trskyler through [employer]. His mathematical skills were minimally impaired. His visuospatial function was preserved. SPEECH: Could not be tested, but he was able to mouth words relatively well. LANGUAGE: He was able to comprehend and express himself relatively well using his communication board. CRANIAL NERVES EXAMINATION: II: The visual mckeon were intact to confrontation testing. III, IV & : The external ocular movements were full and the pupils 3 mm in diameter, equal, round, regular, and reactive sluggishly to light. V: He had normal facial sensations, and the temporales, masseters, and pterygoids functioned normally. VII: He had normal facial expressions and no facial asymmetry. VIII: Hearing was decreased bilaterally with worse hearing on the left side compared to the right. IX: The palate moved symmetrically on phonation. X: Could not be tested. XI: The sternocleidomastoids and trapezii functioned normally. XII: The tongue was in the midline without any fasciculations or atrophy. MOTOR SYSTEM: The tone was normal in all four extremities. Examination of muscle mass revealed generalized muscle wasting. Examination of power revealed G 5/5 power except for G 4+/5 power in the iliopsoas muscles bilaterally. SENSORY EXAMINATION: He had intact sensations to light touch. Other sensory modalities could not be tested adequately. REFLEXES: 1+ and bilaterally symmetrical at the biceps, triceps, brachioradialis , and knees, 0 at both ankles. The plantar responses were flexor bilaterally. COORDINATION: He performed well on [id number] testing. STANCE & GAIT: Were deferred. Impression/Recommendations Diagnostic Impression 1. Mr. Gregg Restrepo is a 68-year-old, right-handed, gentleman with past history of multiple medical problems including hypertension, diabetes mellitus, end-stage renal disease for which he is hemodialysis dependent, prior episodes of sepsis, and prior episodes of encephalopathy, who was admitted to [facility] on October 31, 2018. Following that, he has had a stormy hospital course including pneumonia and sepsis, right foot infection, respiratory failure for which he has needed tracheostomy and in addition he has exhibited an alteration in his mental state with some waxing and waning of his mental state. 2. He feels very short of breath. He is undergoing a weaning trial. Otherwise he feels about the same as yesterday. His right foot is less painful. The mind has been clearer. He has not been out of bed or at the edge of the bed today. He has not walked yet. The right upper extremity is less swollen and less painful. He denies any new neurologic symptoms. 3. On neurological examination, at this time, he is fully oriented, has mild problems with recent and remote memory, normal visuospatial function, minimally impaired higher cognitive function. He is able to comprehend and express himself well. He does have mild G 4+/5 weakness in the iliopsoas muscles bilaterally, globally diminished deep tendon reflexes with loss of ankle jerks, but no definite focal or lateralizing neurological findings. 4. His latest laboratory data on my initial evaluation revealed that he was anemic with a hemoglobin of 10.8 G. His last blood gas performed on 11/14/2018 revealed that he had a pCO2 elevated at 56.4 with a normal pO2 of 88.3 and normal pH of 7.37. His latest chemistry panel revealed that he was mildly hyponatremic with a sodium of 130, and had a chloride of 90. The BUN was elevated at 75, creatinine elevated at 7.4, glucose elevated at 156, Hemoglobin A1c elevated at 6.9%, Alkaline phosphatase elevated at 131, and ProBNP greater than 35,000. His last B12 level on 11/07/2018 was 723. His last folate on was 18.6. His last TSH on 12/06/2018 was 4.82, which is minimally elevated. 5. The CT scan of the brain performed on 11/10/2018 was benign for acute intracranial pathology. 6. The EEG done on 12/08/18 revealed left temporal dysfunction. 7. The patient's history and neurological examination are most consistent with mild multifactorial encephalopathy, which apparently waxes and wanes, but no definite focal neurological dysfunction. His encephalopathy is better today. 8. He tells me that he had a brain bleed many years ago. I did review his imaging done at [facility] a few years ago and he had closed head injuries with subarachnoid and subdural blood in the past. Recommendations 1. Continue present management. 2. Attempts should be made to correct the patient's toxic metabolic imbalances that have already been observed. 3. Mobilize with PT/OT. 4. As per Dr. Sharpe his Pacemaker is not MRI safe. Pantera Cool M.D., Pantera Tijerina MD Dec 12, 2018 14:07
--- NOTE | 2018-12-12 15:06 | Cardiac Electrophysiology PN ---
Assessment/Plan Assessment/Plan 1. Troponin leak with no chest pain. Due to renal failure. 2. CAD S/P CABG. On Coreg 3.125 mg bid, aspirin and Lipitor 3. Nonsustained ventricular tachycardia in setting of old AR and CABG. EF 55%. No Syncope 4. Congestive heart failure. On hemodialysis 5. S/P R. [employer] dual chamber pacemaker with Nl Fx. 6. End-stage renal disease, on hemodialysis per Dr. Stevens 7. Right foot ulcer. Antibiotic per Dr. Landis. FU by Dr. Huizar 8. History of liver transplant on Prograf 9. Respiratory failure, S/P tracheostomy. 10. Pleural effusion. FU Dr. Mendoza 11. Dysphagia, S/P PEG Awaiting placement DW RN Subjective Subjective On the vent via tracheostomy. Alert and responsive. RN and family at bedside. Objective Last 24 Hour Vital Signs Date Time Temp Pulse Resp B/P (MAP) Pulse Ox O2 Delivery O2 Flow Rate FiO2 12/12/18 14:31 83 45 40 12/12/18 13:39 89 38 40 12/12/18 12:29 149/70 12/12/18 12:00 77 12/12/18 12:00 98.3 73 28 149/85 (106) 100 12/12/18 12:00 40 12/12/18 12:00 Mechanical Ventilator 12/12/18 10:40 72 32 40 12/12/18 10:17 87 34 40 12/12/18 10:17 99 12/12/18 08:43 71 27 40 12/12/18 08:32 78 149/70 12/12/18 08:00 97.9 78 25 149/70 (96) 100 12/12/18 08:00 Mechanical Ventilator 12/12/18 08:00 40 12/12/18 07:54 75 12/12/18 07:29 73 22 40 12/12/18 05:30 77 23 40 12/12/18 05:18 143/68 12/12/18 04:00 Mechanical Ventilator 12/12/18 04:00 97.5 81 23 143/68 (93) 100 12/12/18 04:00 40 12/12/18 03:36 81 12/12/18 02:38 71 26 40 12/12/18 01:01 69 29 40 12/12/18 00:00 97.7 83 24 152/86 (108) 100 12/12/18 00:00 40 12/12/18 00:00 Mechanical Ventilator 12/11/18 23:46 81 12/11/18 23:24 71 27 40 12/11/18 21:12 68 24 40 12/11/18 20:09 71 132/82 12/11/18 20:00 40 12/11/18 20:00 Mechanical Ventilator 12/11/18 19:56 97.7 71 22 132/82 (99) 100 12/11/18 19:26 74 12/11/18 19:22 72 23 40 12/11/18 17:25 69 22 40 12/11/18 16:00 40 12/11/18 16:00 97.5 74 24 119/62 (81) 100 12/11/18 16:00 Mechanical Ventilator 12/11/18 15:26 72 12/11/18 15:07 66 26 40 Intake and Output 12/11/18 12/12/18 19:00 07:00 Intake Total 720 ml 590 ml Output Total 1000 ml Balance -280 ml 590 ml Free Water 50 ml Tube Feeding 540 ml 540 ml Other 180 ml Hemodialysis UF 1000 ml Laboratory Tests Test 12/11/18 15:55 White Blood Count 7.4 K/UL (4.8-10.8) Red Blood Count 4.08 M/UL (4.70-6.10) L Hemoglobin 10.2 G/DL (14.2-18.0) L Hematocrit 31.4 % (42.0-52.0) L Mean Corpuscular Volume 77 FL (80-99) L Mean Corpuscular Hemoglobin 25.0 PG (27.0-31.0) L Mean Corpuscular Hemoglobin Concent 32.5 G/DL (32.0-36.0) Red Cell Distribution Width 16.0 % (11.6-14.8) H Platelet Count 185 K/UL (150-450) Mean Platelet Volume 5.7 FL (6.5-10.1) L Neutrophils (%) (Auto) 73.3 % (45.0-75.0) Lymphocytes (%) (Auto) 21.9 % (20.0-45.0) Monocytes (%) (Auto) 4.0 % (1.0-10.0) Eosinophils (%) (Auto) 0.0 % (0.0-3.0) Basophils (%) (Auto) 0.8 % (0.0-2.0) Sodium Level 129 MMOL/L (136-145) L Potassium Level 4.5 MMOL/L (3.5-5.1) Chloride Level 92 MMOL/L (98-107) L Carbon Dioxide Level 29 MMOL/L (21-32) Anion Gap 8 mmol/L (5-15) Blood Urea Nitrogen 63 mg/dL (7-18) H Creatinine 7.0 MG/DL (0.55-1.30) H Estimat Glomerular Filtration Rate 7.9 mL/min (>60) Glucose Level 154 MG/DL (74-106) H Calcium Level 9.0 MG/DL (8.5-10.1) Phosphorus Level 4.1 MG/DL (2.5-4.9) Magnesium Level 2.3 MG/DL (1.8-2.4) Total Bilirubin 0.3 MG/DL (0.2-1.0) Gamma Glutamyl Transpeptidase 19 U/L (5-85) Aspartate Amino Transf (AST/SGOT) 13 U/L (15-37) L Alanine Aminotransferase (ALT/SGPT) 10 U/L (12-78) L Alkaline Phosphatase 104 U/L (46-116) Ammonia 15 umol/L (11-32) Troponin I 0.059 ng/mL (0.000-0.056) C-Reactive Protein, Quantitative 11.6 mg/dL (0.00-0.90) H Pro-B-Type Natriuretic Peptide > 18613 pg/mL (0-125) H Total Protein 6.2 G/DL (6.4-8.2) L Albumin 2.0 G/DL (3.4-5.0) L Globulin 4.2 g/dL Albumin/Globulin Ratio 0.5 (1.0-2.7) L Objective HEAD AND NECK: No JVD. Tracheostomy intact LUNGS: Clear CARDIOVASCULAR: Irregular S1 and S2 with no gallop. Sternotomy is intact Pacemaker in the right subclavian ABDOMEN: Soft.PEG in place EXTREMITIES: 1+ pitting edema Shivam Sharpe MD Dec 12, 2018 15:06
[2018-12-12 16:00] VITALS: BP 135/72
[2018-12-12 20:00] VITALS: BP 140/80
[2018-12-12] MEDS: OLANZapine 2.5mg tab GT SCH (20:22)
[2018-12-12] MEDS: Ciprofloxacin 500mg tab ORAL SCH (20:23)
--- NOTE | 2018-12-12 20:49 | Infectious Diseases Prog Note ---
Assessment/Plan Problems: (1) G-tube site cellulitis Assessment & Plan: culture from the G tube site grew pseudomonas , continue ciprofloxacin for 7 days , continue local care and antibiotics as per GI (2) Thrush, oral Assessment & Plan: continue local nystatin , S/P micafungin for three weeks empirically (3) HCV antibody positive Assessment & Plan: no evidence of active infection, with undetectable viral load , suspect due to previous infection , cleared, S/P liver transplant . (4) Foot ulcer Assessment & Plan: in diabetic patient , with MRSA , S/P vancomycin treatment with HD for two weeks , recommend vascular eval . bone scan ruled out osteomyelitis of the heel . follow up with record maker (5) DM (diabetes mellitus) Assessment & Plan: recommend tight glycemic control to keep blood glucose between 100-140 (6) CHF (congestive heart failure) Assessment & Plan: on HD , renal is following, monitor daily weight (7) Severe tongue swelling Assessment & Plan: improving , s/p tracheostomy to protect his airway since respiratory status worsened . now improving, pulmonary is following (8) Pleural effusion Assessment & Plan: recurrent on the right, with lung collapse , S/P thoracentesis X2 with removal of 1.5 cc of clear fluids. PREVIOUS culture were negative with negative cytology Subjective Constitutional: Reports: no symptoms HEENT: Reports: no symptoms Respiratory: Reports: no symptoms Breasts: Reports: no symptoms Cardiovascular: Reports: no symptoms Gastrointestinal/Abdominal: Reports: no symptoms Genitourinary: Reports: no symptoms Neurologic: Reports: no symptoms Psychiatric: Reports: no symptoms Skin: Reports: no symptoms Endocrine: Reports: no symptoms Hematologic: Reports: no symptoms Musculoskeletal: Reports: no symptoms Allergies: Coded Allergies: CEPHALEXIN (Unverified Allergy, Unknown, 02/24/14) SULFAMETHOXAZOLE (Unverified Allergy, Unknown, 02/24/14) TRIMETHOPRIM (Unverified Allergy, Unknown, 02/24/14) Subjective he was comfortable, has no facial swelling or tongue swelling , awake and responsive, no fever or chills, no significant secretions , no SOB . has less thrush on his tongue Objective Vital Signs Last 24 Hour Vital Signs Date Time Temp Pulse Resp B/P (MAP) Pulse Ox O2 Delivery O2 Flow Rate FiO2 12/12/18 20:21 74 140/80 12/12/18 20:00 Mechanical Ventilator 12/12/18 20:00 40 4/27/19 20:00 97.9 74 21 140/80 (100) 100 12/12/18 19:34 71 24 40 12/12/18 19:33 74 12/12/18 17:27 149/70 12/12/18 17:24 77 24 40 12/12/18 16:00 40 12/12/18 16:00 98.3 75 23 135/72 (93) 99 12/12/18 16:00 Mechanical Ventilator 12/12/18 16:00 75 12/12/18 14:31 83 45 40 12/12/18 13:39 89 38 40 12/12/18 12:29 149/70 12/12/18 12:00 77 12/12/18 12:00 98.3 73 28 149/85 (106) 100 12/12/18 12:00 40 12/12/18 12:00 Mechanical Ventilator 12/12/18 10:40 72 32 40 12/12/18 10:17 87 34 40 12/12/18 10:17 99 12/12/18 08:43 71 27 40 12/12/18 08:32 78 149/70 12/12/18 08:00 97.9 78 25 149/70 (96) 100 12/12/18 08:00 Mechanical Ventilator 12/12/18 08:00 40 12/12/18 07:54 75 12/12/18 07:29 73 22 40 12/12/18 05:30 77 23 40 12/12/18 05:18 143/68 12/12/18 04:00 Mechanical Ventilator 12/12/18 04:00 97.5 81 23 143/68 (93) 100 12/12/18 04:00 40 12/12/18 03:36 81 12/12/18 02:38 71 26 40 12/12/18 01:01 69 29 40 12/12/18 00:00 97.7 83 24 152/86 (108) 100 12/12/18 00:00 40 12/12/18 00:00 Mechanical Ventilator 12/11/18 23:46 81 12/11/18 23:24 71 27 40 12/11/18 21:12 68 24 40 Height (Feet): 5 Height (Inches): 5.00 Weight (Pounds): 218 General Appearance: WD/WN, no acute distress HEENT: normocephalic, atraumatic, anicteric, mucous membranes moist, PERRL, EOMI, pharynx normal, supple, no JVD Respiratory/Chest: chest wall non-tender, no respiratory distress, no accessory muscle use, decreased breath sounds, crackles/rales Cardiovascular: normal peripheral pulses, normal rate, no gallop/murmur, no JVD Abdomen: normal bowel sounds, soft, non tender, no organomegaly, non distended , no mass, no scars Genitourinary: normal external genitalia Extremities: no cyanosis, no clubbing Skin: no rash, no lesions 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, alert, responsive Lymphatic: no neck adenopathy, no groin adenopathy Musculoskeletal: normal muscle bulk, no effusion Current Medications Medications (Trade) Dose Ordered Sig/Aleks Route PRN Reason Start Time Stop Time Status Last Admin Dose Admin Aspirin (ASA) 162 mg DAILY GT 12/08/18 09:00 12/20/18 08:59 12/12/18 08:31 Atorvastatin Calcium (Lipitor) 10 mg BEDTIME NG 12/01/18 21:00 12/21/18 20:59 12/12/18 20:21 Bacitracin (Bacitracin) 1 applic EVERY 12 HOURS TOPIC 12/11/18 21:00 01/06/19 17:59 12/12/18 20:22 Carvedilol (Coreg) 6.25 mg EVERY 12 HOURS PEG 12/06/18 21:00 01/03/19 20:59 12/12/18 20:21 Ciprofloxacin (Cipro 500mg tab) 500 mg Q24H ORAL 12/10/18 21:00 12/17/18 20:59 12/12/18 20:23 Clotrimazole (Lotrimin) 1 applic BID TOPIC 12/07/18 18:00 01/06/19 17:59 12/12/18 17:30 Dextrose (Dextrose 50%) 25 ml Q30M PRN IV Hypoglycemia 12/01/18 19:30 12/31/18 19:29 Dextrose (Dextrose 50%) 50 ml Q30M PRN IV Hypoglycemia 12/01/18 19:30 12/31/18 19:29 Docusate Sodium (Colace) 100 mg EVERY 8 HOURS PRN GT constipation 11/24/18 18:51 12/20/18 18:50 Hydralazine HCl (Apresoline) 10 mg Q6H PRN GT For High Blood Pressure 12/03/18 16:45 01/02/19 16:44 12/07/18 04:47 Hydromorphone HCl (Dilaudid) 1 mg Q4H PRN GT For Pain 12/07/18 11:30 12/14/18 11:29 12/12/18 18:34 Insulin Aspart (NovoLOG) EVERY 6 HOURS SUBQ 12/02/18 00:00 12/31/18 20:59 12/12/18 17:32 Lactulose (Cephulac) 20 gm THREE TIMES A DAY PRN GT Constipation 11/24/18 18:51 12/23/18 18:50 Lansoprazole (Prevacid) 30 mg BID GT 11/20/18 09:00 12/20/18 08:59 12/12/18 17:27 Nicotine (Nicoderm) 1 patch Q24H TDERMAL 12/01/18 22:15 12/21/18 22:14 12/11/18 21:15 Nitroglycerin (Nitro-Bid) 1 inch TID@0600,1200,1800 TOPIC 12/07/18 12:00 01/06/19 11:59 12/12/18 17:27 Olanzapine (ZyPREXA) 2.5 mg BEDTIME GT 12/05/18 21:00 12/13/18 20:59 12/12/18 20:22 Olanzapine (ZyPREXA) 2.5 mg Q6H PRN ORAL agitation 11/15/18 23:00 12/15/18 22:59 12/06/18 00:23 Sevelamer Carbonate (Renvela) 800 mg Q8HR GT 11/20/18 14:00 12/20/18 13:59 12/12/18 14:23 Tacrolimus (Prograf) 2 mg MoWeFr@0000,1200 ORAL 12/07/18 00:00 12/21/18 00:00 12/11/18 12:10 Tacrolimus (Prograf) 2 mg SuTuThSa@0900,2100 ORAL 12/05/18 21:00 01/04/19 20:59 12/12/18 20:21 Francois Landis M.D. Dec 12, 2018 20:49
--- NOTE | 2018-12-12 22:00 | Psych Consult Progress Note ---
Psychiatry Progress Note Psychiatry Progress Note Medications Current Medications Medications (Trade) Dose Ordered Sig/Aleks Route PRN Reason Start Time Stop Time Status Last Admin Dose Admin Aspirin (ASA) 162 mg DAILY GT 12/08/18 09:00 12/20/18 08:59 12/12/18 08:31 Atorvastatin Calcium (Lipitor) 10 mg BEDTIME NG 12/01/18 21:00 12/21/18 20:59 12/12/18 20:21 Bacitracin (Bacitracin) 1 applic EVERY 12 HOURS TOPIC 12/11/18 21:00 01/06/19 17:59 12/12/18 20:22 Carvedilol (Coreg) 6.25 mg EVERY 12 HOURS PEG 12/06/18 21:00 01/03/19 20:59 12/12/18 20:21 Ciprofloxacin (Cipro 500mg tab) 500 mg Q24H ORAL 12/10/18 21:00 12/17/18 20:59 12/12/18 20:23 Clotrimazole (Lotrimin) 1 applic BID TOPIC 12/07/18 18:00 01/06/19 17:59 12/12/18 17:30 Dextrose (Dextrose 50%) 25 ml Q30M PRN IV Hypoglycemia 12/01/18 19:30 12/31/18 19:29 Dextrose (Dextrose 50%) 50 ml Q30M PRN IV Hypoglycemia 12/01/18 19:30 12/31/18 19:29 Docusate Sodium (Colace) 100 mg EVERY 8 HOURS PRN GT constipation 11/24/18 18:51 12/20/18 18:50 Hydralazine HCl (Apresoline) 10 mg Q6H PRN GT For High Blood Pressure 12/03/18 16:45 01/02/19 16:44 12/07/18 04:47 Hydromorphone HCl (Dilaudid) 1 mg Q4H PRN GT For Pain 12/07/18 11:30 12/14/18 11:29 12/12/18 18:34 Insulin Aspart (NovoLOG) EVERY 6 HOURS SUBQ 12/02/18 00:00 12/31/18 20:59 12/12/18 17:32 Lactulose (Cephulac) 20 gm THREE TIMES A DAY PRN GT Constipation 11/24/18 18:51 12/23/18 18:50 Lansoprazole (Prevacid) 30 mg BID GT 11/20/18 09:00 12/20/18 08:59 12/12/18 17:27 Nicotine (Nicoderm) 1 patch Q24H TDERMAL 12/01/18 22:15 12/21/18 22:14 12/12/18 21:16 Nitroglycerin (Nitro-Bid) 1 inch TID@0600,1200,1800 TOPIC 12/07/18 12:00 01/06/19 11:59 12/12/18 17:27 Olanzapine (ZyPREXA) 2.5 mg BEDTIME GT 12/05/18 21:00 12/13/18 20:59 12/12/18 20:22 Olanzapine (ZyPREXA) 2.5 mg Q6H PRN ORAL agitation 11/15/18 23:00 12/15/18 22:59 12/06/18 00:23 Sevelamer Carbonate (Renvela) 800 mg Q8HR GT 11/20/18 14:00 12/20/18 13:59 12/12/18 21:16 Tacrolimus (Prograf) 2 mg MoWeFr@0000,1200 ORAL 12/07/18 00:00 12/21/18 00:00 12/11/18 12:10 Tacrolimus (Prograf) 2 mg SuTuThSa@0900,2100 ORAL 12/05/18 21:00 01/04/19 20:59 12/12/18 20:21 Neurological/Psychiatric: Reports: anxiety, depressed Allergies: Coded Allergies: CEPHALEXIN (Unverified Allergy, Unknown, 02/24/14) SULFAMETHOXAZOLE (Unverified Allergy, Unknown, 02/24/14) TRIMETHOPRIM (Unverified Allergy, Unknown, 02/24/14) Objective Data Height (Feet): 5 Height (Inches): 5.00 Weight (Pounds): 218 Appearance: disheveled Behavior Mannerisms: good eye contact Mental Status Exam - Affect: blunted Mental Status Exam - Mood: anxious Mental Status Exam - Thought P: goal-directed Mental Status Exam - Suicidal: not present Assessment/Plan Problem List: (1) Encephalopathy acute ICD Codes: G93.40 - Encephalopathy, unspecified SNOMED: 58215514, 365375328 Status: stable, progressing Assessment/Plan: Zyprexa 2.5mg po qhs haldol IM prn the pt lacks capacity ativan 1mg gt prior to weaning off from vent MRI to rule out stroke however the pt is intubated Jeffrey Lala MD Dec 12, 2018 22:00
[2018-12-13] VITALS: BP 115/81
[2018-12-13 04:00] VITALS: BP 132/70
[2018-12-13] MEDS: Nitroglycerin 2% oint pkt TOPIC SCH ×3 (05:01→17:31)
[2018-12-13] MEDS: NovoLOG Insulin Flexpen SUBQ SCH ×3 (05:02→17:34)
[2018-12-13 08:00] VITALS: BP 92/47
--- NOTE | 2018-12-13 08:27 | General Progress Note ---
Assessment/Plan Problem List: (1) Transplant ICD Codes: Z94.9 - Transplanted organ and tissue status, unspecified SNOMED: 617721871 (2) HTN (hypertension) ICD Codes: I10 - Essential (primary) hypertension SNOMED: 15021869 (3) Pacemaker ICD Codes: Z95.0 - Presence of cardiac pacemaker SNOMED: 765726667 (4) CHF (congestive heart failure) ICD Codes: I50.9 - Heart failure, unspecified SNOMED: 42170842 (5) DM (diabetes mellitus) ICD Codes: E11.9 - Type 2 diabetes mellitus without complications SNOMED: 90254951 (6) Foot ulcer ICD Codes: L97.509 - Non-pressure chronic ulcer of other part of unspecified foot with unspecified severity SNOMED: 43428225 Qualifiers: Qualified Codes: L97.511 - Non-pressure chronic ulcer of other part of right foot limited to breakdown of skin (7) ESRD (end stage renal disease) on dialysis ICD Codes: N18.6 - End stage renal disease; Z99.2 - Dependence on renal dialysis SNOMED: 895667038 Status: stable, progressing Assessment/Plan: History of liver transplant, currently on Prograf C. difficile negative status post tracheostomy and PEG Infected G-tube site, fu ID recs would care cx >> GRAM NEGATIVE BACILLUS cont GTFs GT site care BID/prn topical abx around GT site per ID HD per nephro cont tacrolimus prn transfusions ppi zofran prn Titrate bowel regimen follow labs supportive ca Subjective ROS Limited/Unobtainable: No Allergies: Coded Allergies: CEPHALEXIN (Unverified Allergy, Unknown, 02/24/14) SULFAMETHOXAZOLE (Unverified Allergy, Unknown, 02/24/14) TRIMETHOPRIM (Unverified Allergy, Unknown, 02/24/14) Subjective he pulled his NGT again Objective Last 24 Hour Vital Signs Date Time Temp Pulse Resp B/P (MAP) Pulse Ox O2 Delivery O2 Flow Rate FiO2 12/13/18 06:52 70 23 40 12/13/18 05:01 132/70 12/13/18 04:50 70 23 40 12/13/18 04:00 40 12/13/18 04:00 Mechanical Ventilator 12/13/18 04:00 98.0 73 22 132/70 (90) 100 12/13/18 03:35 71 12/13/18 03:06 76 24 40 12/13/18 01:10 75 22 40 12/13/18 00:00 75 12/13/18 00:00 Mechanical Ventilator 12/13/18 00:00 98.2 70 21 115/81 (92) 100 12/12/18 23:27 71 25 40 12/12/18 21:18 76 24 40 12/12/18 20:21 74 140/80 12/12/18 20:00 Mechanical Ventilator 12/12/18 20:00 40 12/12/18 20:00 97.9 74 21 140/80 (100) 100 12/12/18 19:34 71 24 40 12/12/18 19:33 74 12/12/18 17:27 149/70 12/12/18 17:24 77 24 40 12/12/18 16:00 40 12/12/18 16:00 98.3 75 23 135/72 (93) 99 12/12/18 16:00 Mechanical Ventilator 12/12/18 16:00 75 12/12/18 14:31 83 45 40 12/12/18 13:39 89 38 40 12/12/18 12:29 149/70 12/12/18 12:00 77 12/12/18 12:00 98.3 73 28 149/85 (106) 100 12/12/18 12:00 40 12/12/18 12:00 Mechanical Ventilator 12/12/18 10:40 72 32 40 12/12/18 10:17 87 34 40 12/12/18 10:17 99 12/12/18 08:43 71 27 40 12/12/18 08:32 78 149/70 Intake and Output 12/12/18 12/13/18 19:00 07:00 Intake Total 615 ml 640 ml Balance 615 ml 640 ml Free Water 75 ml 100 ml Tube Feeding 540 ml 540 ml # Bowel Movements 2 Height (Feet): 5 Height (Inches): 5.00 Weight (Pounds): 218 General Appearance: alert EENT: normal ENT inspection Neck: supple Cardiovascular: normal rate Respiratory/Chest: decreased breath sounds Abdomen: normal bowel sounds, non tender, soft Extremities: non-tender Jorge Escalera MD Dec 13, 2018 08:27
[2018-12-13] MEDS: Carvedilol 6.25mg Tab PEG SCH ×2 (08:46→20:47)
[2018-12-13] MEDS: Aspirin Baby 81mg GT SCH (08:46)
[2018-12-13] MEDS: Bacitracin Oint UD TOPIC SCH ×2 (08:46→20:47)
[2018-12-13] MEDS: HYDROmorphone 2mg tab GT PRN ×3 (08:49→20:47)
[2018-12-13 12:00] VITALS: BP 131/64
--- NOTE | 2018-12-13 13:53 | Neurology Progress Note ---
Interim History Interim History Interim History Mr. Restrepo feels relatively well. He is not short of breath today, He was able to wean for ~ 40 minutes yesterday but then got very tired. He feels about the same as yesterday. His right foot is less painful. The mind has been clearer. He has not been out of bed or at the edge of the bed today. He has not walked yet. The right upper extremity is less swollen and less painful. He denies any new neurologic symptoms. Review of Systems Neuro Review of Systems Benign. Objective Physical Exam Last Vital Signs Date Time Temp Pulse Resp B/P (MAP) Pulse Ox O2 Delivery O2 Flow Rate FiO2 12/13/18 13:27 74 24 40 12/13/18 12:28 131/64 12/13/18 12:00 98.1 99 12/13/18 12:00 Mechanical Ventilator Neurologic Exam Objective PHYSICAL EXAMINATION: GENERAL: He is a well-developed and well-nourished, pleasant gentleman, lying in bed connected to a ventilator via tracheostomy. HEAD: Normocephalic and atraumatic. EENT: Examination benign. NECK: No neck rigidity was observed. He did have a tracheostomy. NEUROLOGICAL EXAMINATION: MENTAL STATUS EXAMINATION: He was awake and alert. He was oriented to person, place, and time. He was able to recall 3/3 words immediately, after 1 minute, and after 3 minutes. He was able to remember president Emi through [employer]. His mathematical skills were minimally impaired. His visuospatial function was preserved. SPEECH: Could not be tested, but he was able to mouth words relatively well. LANGUAGE: He was able to comprehend and express himself relatively well using his communication board. CRANIAL NERVES EXAMINATION: II: The visual mckeon were intact to confrontation testing. III, IV & : The external ocular movements were full and the pupils 3 mm in diameter, equal, round, regular, and reactive sluggishly to light. V: He had normal facial sensations, and the temporales, masseters, and pterygoids functioned normally. VII: He had normal facial expressions and no facial asymmetry. VIII: Hearing was decreased bilaterally with worse hearing on the left side compared to the right. IX: The palate moved symmetrically on phonation. X: Could not be tested. XI: The sternocleidomastoids and trapezii functioned normally. XII: The tongue was in the midline without any fasciculations or atrophy. MOTOR SYSTEM: The tone was normal in all four extremities. Examination of muscle mass revealed generalized muscle wasting. Examination of power revealed G 5/5 power except for G 4+/5 power in the iliopsoas muscles bilaterally. SENSORY EXAMINATION: He had intact sensations to light touch. Other sensory modalities could not be tested adequately. REFLEXES: 1+ and bilaterally symmetrical at the biceps, triceps, brachioradialis , and knees, 0 at both ankles. The plantar responses were flexor bilaterally. COORDINATION: He performed well on [id number] testing. STANCE & GAIT: Were deferred. Impression/Recommendations Diagnostic Impression 1. Mr. Gregg Restrepo is a 68-year-old, right-handed, gentleman with past history of multiple medical problems including hypertension, diabetes mellitus, end-stage renal disease for which he is hemodialysis dependent, prior episodes of sepsis, and prior episodes of encephalopathy, who was admitted to [facility] on October 31, 2018. Following that, he has had a stormy hospital course including pneumonia and sepsis, right foot infection, respiratory failure for which he has needed tracheostomy and in addition he has exhibited an alteration in his mental state with some waxing and waning of his mental state. 2. He feels relatively well. He is not short of breath today, He was able to wean for ~ 40 minutes yesterday but then got very tired. He feels about the same as yesterday. His right foot is less painful. The mind has been clearer. He has not been out of bed or at the edge of the bed today. He has not walked yet. The right upper extremity is less swollen and less painful. He denies any new neurologic symptoms. 3. On neurological examination, at this time, he is fully oriented, has mild problems with recent and remote memory, normal visuospatial function, minimally impaired higher cognitive function. He is able to comprehend and express himself well. He does have mild G 4+/5 weakness in the iliopsoas muscles bilaterally, globally diminished deep tendon reflexes with loss of ankle jerks, but no definite focal or lateralizing neurological findings. 4. His latest laboratory data on my initial evaluation revealed that he was anemic with a hemoglobin of 10.8 G. His last blood gas performed on 11/14/2018 revealed that he had a pCO2 elevated at 56.4 with a normal pO2 of 88.3 and normal pH of 7.37. His latest chemistry panel revealed that he was mildly hyponatremic with a sodium of 130, and had a chloride of 90. The BUN was elevated at 75, creatinine elevated at 7.4, glucose elevated at 156, Hemoglobin A1c elevated at 6.9%, Alkaline phosphatase elevated at 131, and ProBNP greater than 35,000. His last B12 level on 11/07/2018 was 723. His last folate on was 18.6. His last TSH on 12/06/2018 was 4.82, which is minimally elevated. 5. The CT scan of the brain performed on 11/10/2018 was benign for acute intracranial pathology. 6. The EEG done on 12/08/18 revealed left temporal dysfunction. 7. The patient's history and neurological examination are most consistent with mild multifactorial encephalopathy, which apparently waxes and wanes, but no definite focal neurological dysfunction. His encephalopathy is better today. 8. He tells me that he had a brain bleed many years ago. I did review his imaging done at [facility] a few years ago and he had closed head injuries with subarachnoid and subdural blood in the past. Recommendations 1. Continue present management. 2. Continue to correct the patient's toxic metabolic imbalances. 3. Mobilize with PT/OT. 4. Observe closely. Pantera Cool M.D., M.S.P.H. Pantera Cool MD Dec 13, 2018 13:53
--- NOTE | 2018-12-13 13:58 | Cardiac Electrophysiology PN ---
Assessment/Plan Assessment/Plan 1. Troponin leak due to renal failure. No CP or SOB 2. CAD S/P CABG. On Coreg 3.125 mg bid, aspirin and Lipitor 3. Nonsustained ventricular tachycardia in setting of old ME and CABG. EF 55%. No Syncope 4. Congestive heart failure. On hemodialysis 5. S/P R. [employer] dual chamber pacemaker with Nl Fx. 6. End-stage renal disease, on hemodialysis per Dr. Stevens 7. Right foot ulcer. Antibiotic per Dr. Landis. FU by Dr. Huizar 8. History of liver transplant on Prograf 9. Respiratory failure, S/P tracheostomy. 10. Pleural effusion. FU Dr. Mendoza 11. Dysphagia, S/P PEG Awaiting placement DW RN Subjective Subjective On the vent via tracheostomy.No events. Objective Last 24 Hour Vital Signs Date Time Temp Pulse Resp B/P (MAP) Pulse Ox O2 Delivery O2 Flow Rate FiO2 12/13/18 13:27 74 24 40 12/13/18 12:28 131/64 12/13/18 12:00 98.1 72 20 131/64 (86) 99 12/13/18 12:00 40 12/13/18 12:00 Mechanical Ventilator 12/13/18 11:12 68 23 40 12/13/18 09:06 78 24 40 12/13/18 08:46 70 92/47 12/13/18 08:00 Mechanical Ventilator 12/13/18 08:00 75 12/13/18 08:00 40 12/13/18 08:00 97.7 70 21 92/47 (62) 99 12/13/18 06:52 70 23 40 12/13/18 05:01 132/70 12/13/18 04:50 70 23 40 12/13/18 04:00 40 12/13/18 04:00 Mechanical Ventilator 12/13/18 04:00 98.0 73 22 132/70 (90) 100 12/13/18 03:35 71 12/13/18 03:06 76 24 40 12/13/18 01:10 75 22 40 12/13/18 00:00 75 12/13/18 00:00 Mechanical Ventilator 12/13/18 00:00 98.2 70 21 115/81 (92) 100 12/12/18 23:27 71 25 40 12/12/18 21:18 76 24 40 12/12/18 20:21 74 140/80 12/12/18 20:00 Mechanical Ventilator 12/12/18 20:00 40 12/12/18 20:00 97.9 74 21 140/80 (100) 100 12/12/18 19:34 71 24 40 12/12/18 19:33 74 12/12/18 17:27 149/70 12/12/18 17:24 77 24 40 12/12/18 16:00 40 12/12/18 16:00 98.3 75 23 135/72 (93) 99 12/12/18 16:00 Mechanical Ventilator 12/12/18 16:00 75 12/12/18 14:31 83 45 40 Intake and Output 12/12/18 12/13/18 19:00 07:00 Intake Total 615 ml 640 ml Balance 615 ml 640 ml Free Water 75 ml 100 ml Tube Feeding 540 ml 540 ml # Bowel Movements 2 Objective HEAD AND NECK: No JVD. Tracheostomy intact LUNGS: Clear CARDIOVASCULAR: Irregular S1 and S2 with no gallop. Sternotomy is intact Pacemaker in the right subclavian ABDOMEN: Soft.PEG in place EXTREMITIES: 1+ pitting edema Shivam Sharpe MD Dec 13, 2018 13:58
[2018-12-13] MEDS: Renvela 800mg Pkt GT SCH ×2 (14:34→21:28)
--- NOTE | 2018-12-13 14:41 | Nephrology Progress Note ---
Assessment/Plan Problem List: (1) ESRD (end stage renal disease) on dialysis (2) Foot ulcer (3) CHF (congestive heart failure) Assessment: Ej Fx 20 % (4) Pacemaker (5) Acute respiratory failure Assessment: with Co2 retention Assessment ESRD with high K and SOB on admit Foot ulcer, likely infected High Troponin likely NSTMI Pacer , Pleural effusion s/p CABGS s/p Liver transplant Plan doing PT , improving HD 12/11 next HD 12/14 GT site infection, topical antibiotic Neuro note appreciated placement in process pain med change to dilaudid GT Now has tracheostomy and PEG Adjust BP meds add nitro paste TID HD next Antibiotics by ID start tube feeding / hasPEG per cardio and ID Podiatry and Vascular surgical fu ? DC planning? ALSO COVERING MEDCINE FOR DR BERG Subjective ROS Limited/Unobtainable: No Objective Objective Last 24 Hour Vital Signs Date Time Temp Pulse Resp B/P (MAP) Pulse Ox O2 Delivery O2 Flow Rate FiO2 12/13/18 13:27 74 24 40 12/13/18 12:28 131/64 12/13/18 12:00 98.1 72 20 131/64 (86) 99 12/13/18 12:00 40 12/13/18 12:00 Mechanical Ventilator 12/13/18 11:12 68 23 40 12/13/18 09:06 78 24 40 12/13/18 08:46 70 92/47 12/13/18 08:00 Mechanical Ventilator 12/13/18 08:00 75 12/13/18 08:00 40 12/13/18 08:00 97.7 70 21 92/47 (62) 99 12/13/18 06:52 70 23 40 12/13/18 05:01 132/70 12/13/18 04:50 70 23 40 12/13/18 04:00 40 12/13/18 04:00 Mechanical Ventilator 12/13/18 04:00 98.0 73 22 132/70 (90) 100 12/13/18 03:35 71 12/13/18 03:06 76 24 40 12/13/18 01:10 75 22 40 12/13/18 00:00 75 12/13/18 00:00 Mechanical Ventilator 12/13/18 00:00 98.2 70 21 115/81 (92) 100 12/12/18 23:27 71 25 40 12/12/18 21:18 76 24 40 12/12/18 20:21 74 140/80 12/12/18 20:00 Mechanical Ventilator 12/12/18 20:00 40 12/12/18 20:00 97.9 74 21 140/80 (100) 100 12/12/18 19:34 71 24 40 12/12/18 19:33 74 12/12/18 17:27 149/70 12/12/18 17:24 77 24 40 12/12/18 16:00 40 12/12/18 16:00 98.3 75 23 135/72 (93) 99 12/12/18 16:00 Mechanical Ventilator 12/12/18 16:00 75 Intake and Output 12/12/18 12/13/18 19:00 07:00 Intake Total 615 ml 640 ml Balance 615 ml 640 ml Free Water 75 ml 100 ml Tube Feeding 540 ml 540 ml # Bowel Movements 2 Height (Feet): 5 Height (Inches): 5.00 Weight (Pounds): 218 General Appearance: no apparent distress Objective no other change Nakul Stevens MD Dec 13, 2018 14:41
[2018-12-13 16:00] VITALS: BP 155/75
--- NOTE | 2018-12-13 17:00 | General Progress Note ---
Assessment/Plan Assessment/Plan: Assessment and Recs: # Coagulopathy likely secondary to decreased Vitk dependent cofactors (high INR , PT) --> monitor closely for any evidence of bleeding --> hold off on mixing study at this time unless severe changes noted --> VIT K on prn basis sq can be administered # Anemia of chronic disease due to underlying chronic medical issues, multifactorial as well as kidney disease --> Anemia workup has been ordered, rule out gi bleed, seen by gi, also reviewed w/u --> HAS BEEN reordered since refusing --> No evidence of hemolysis is noted, peripheral smear has been reviewed. --> Epogen can be consider if hgb downtrends --> Medications have been reviewed --> evaluate with Gi team prn --> transfuse if hgb is < 7 (will trend CBC daily) ==> hgb trend 11.2-->10.9-->10.8-->10.7-->10.2 # Failure to thrive is likely related to poor overall status, poor functional status --> with multiple decub ulcerations that are noted, seen by id/surgery --> s/p trach as well --> cea is wnl # Acute respiratory failure is now s/p trach to vent --> as per surgery recs # Ground glass opacity present on imaging of lung --> with pleural effusions, s/p drainage at this time --> no evidence for malignancy is noted # Pleural effusion --> s/p thoracentesis # Hyperkalemia --> kayxelate has been given # Renal failure --> per renal recs, appreciated --> getting hd as per schedule # Altered level of consciousness ==> currently as per baseline The timing of this note does not necessarily reflect the time of the patient was seen. Greatly appreciate consultation! Subjective Constitutional: Denies: no symptoms, chills, diaphoresis, fever, malaise, weakness, other HEENT: Denies: no symptoms, eye pain, blurred vision, tearing, double vision, ear pain, ear discharge, nose pain, nose congestion, throat pain, throat swelling, mouth pain, mouth swelling, other Respiratory: Denies: no symptoms, cough, orthopnea, shortness of breath, SOB with excertion, SOB at rest, sputum, stridor, wheezing, other Gastrointestinal/Abdominal: Denies: no symptoms, abdomen distended, abdominal pain, black stools, tarry stools, blood in stool, constipated, diarrhea, difficulty swallowing, nausea, poor appetite, poor fluid intake, rectal bleeding , vomiting, other Genitourinary: Denies: no symptoms, burning, discharge, frequency, flank pain, hematuria, incontinence, pain, urgency, other 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: Denies: no symptoms, anxiety, depressed, emotional problems, headache, numbness, paresthesia, pre-existing deficit, seizure, tingling, tremors, weakness, other Endocrine: Denies: no symptoms, excessive sweating, flushing, intolerance to cold, intolerance to heat, increased hunger, increased thirst, increased urine, unexplained weight gain, unexplained weight loss, other Allergies: Coded Allergies: CEPHALEXIN (Unverified Allergy, Unknown, 02/24/14) SULFAMETHOXAZOLE (Unverified Allergy, Unknown, 02/24/14) TRIMETHOPRIM (Unverified Allergy, Unknown, 02/24/14) Subjective 11/30: comfortable, on abx, no complaints, on t-piece 12/01: to have hd done potentially tomorrow, is more alert/awake 12/02: no major bleeding, hgb remains approx 11, no changes 12/03: no events, breathing mildly better, hgb is improved 12/04: on vent/trach, no major changes, sr ekg 12/10: small amount of secretions, on trach/vent, no issues otherwise 12/11: no major issues, no complaints, labs reviewed, no sig changes 12/13: no events to report, no fevers or chills, awaiting placement Objective Last 24 Hour Vital Signs Date Time Temp Pulse Resp B/P (MAP) Pulse Ox O2 Delivery O2 Flow Rate FiO2 12/13/18 16:00 Mechanical Ventilator 12/13/18 16:00 40 12/13/18 15:27 71 12/13/18 15:16 88 26 40 12/13/18 15:14 99 12/13/18 13:27 74 24 40 12/13/18 12:28 131/64 12/13/18 12:00 98.1 72 20 131/64 (86) 99 12/13/18 12:00 40 12/13/18 12:00 75 12/13/18 12:00 Mechanical Ventilator 12/13/18 11:12 68 23 40 12/13/18 09:06 78 24 40 12/13/18 08:46 70 92/47 12/13/18 08:00 Mechanical Ventilator 12/13/18 08:00 75 12/13/18 08:00 40 12/13/18 08:00 97.7 70 21 92/47 (62) 99 12/13/18 06:52 70 23 40 12/13/18 05:01 132/70 12/13/18 04:50 70 23 40 12/13/18 04:00 40 12/13/18 04:00 Mechanical Ventilator 12/13/18 04:00 98.0 73 22 132/70 (90) 100 12/13/18 03:35 71 12/13/18 03:06 76 24 40 12/13/18 01:10 75 22 40 12/13/18 00:00 75 12/13/18 00:00 Mechanical Ventilator 12/13/18 00:00 98.2 70 21 115/81 (92) 100 12/12/18 23:27 71 25 40 12/12/18 21:18 76 24 40 12/12/18 20:21 74 140/80 12/12/18 20:00 Mechanical Ventilator 12/12/18 20:00 40 12/12/18 20:00 97.9 74 21 140/80 (100) 100 12/12/18 19:34 71 24 40 12/12/18 19:33 74 12/12/18 17:27 149/70 12/12/18 17:24 77 24 40 Intake and Output 12/12/18 12/13/18 18:59 06:59 Intake Total 615 ml 640 ml Balance 615 ml 640 ml Free Water 75 ml 100 ml Tube Feeding 540 ml 540 ml # Bowel Movements 2 Height (Feet): 5 Height (Inches): 5.00 Weight (Pounds): 218 Objective PE General Appearance: mild distress, moderate distress Lines, tubes and drains: peripheral HEENT: EOMI, thrush, tonsils swollen ++trach Neck: normal inspection Respiratory/Chest: decreased breath sounds, accessory muscle use Cardiovascular/Chest: tachycardia Abdomen: soft, no organomegaly, no mass, ++ peg Extremities: other Skin Exam: warm/dry, rash Neurologic: alert, responsive Kleynberg,Zacarias L. MD Dec 13, 2018 17:00
[2018-12-13 20:00] VITALS: BP 137/82
[2018-12-13] MEDS: Ciprofloxacin 500mg tab ORAL SCH (20:46)
[2018-12-14] VITALS: BP 113/83
[2018-12-14] MEDS: NovoLOG Insulin Flexpen SUBQ SCH ×5 (00:08→23:18)
[2018-12-14] MEDS: HYDROmorphone 2mg tab GT PRN ×3 (01:06→09:41)
[2018-12-14 04:00] VITALS: BP 127/53
[2018-12-14] MEDS: Renvela 800mg Pkt GT SCH ×3 (05:25→21:26)
[2018-12-14] MEDS: Nitroglycerin 2% oint pkt TOPIC SCH ×3 (05:26→17:50)
--- NOTE | 2018-12-14 07:38 | General Progress Note ---
Assessment/Plan Problem List: (1) Transplant ICD Codes: Z94.9 - Transplanted organ and tissue status, unspecified SNOMED: 150638530 (2) HTN (hypertension) ICD Codes: I10 - Essential (primary) hypertension SNOMED: 17839681 (3) Pacemaker ICD Codes: Z95.0 - Presence of cardiac pacemaker SNOMED: 417624985 (4) CHF (congestive heart failure) ICD Codes: I50.9 - Heart failure, unspecified SNOMED: 22657823 (5) DM (diabetes mellitus) ICD Codes: E11.9 - Type 2 diabetes mellitus without complications SNOMED: 09832199 (6) Foot ulcer ICD Codes: L97.509 - Non-pressure chronic ulcer of other part of unspecified foot with unspecified severity SNOMED: 58362322 Qualifiers: Qualified Codes: L97.511 - Non-pressure chronic ulcer of other part of right foot limited to breakdown of skin (7) ESRD (end stage renal disease) on dialysis ICD Codes: N18.6 - End stage renal disease; Z99.2 - Dependence on renal dialysis SNOMED: 173365969 Assessment/Plan: History of liver transplant, currently on Prograf C. difficile negative status post tracheostomy and PEG Infected G-tube site, fu ID recs would care cx >> GRAM NEGATIVE BACILLUS cont GTFs GT site care BID/prn topical abx around GT site per ID HD per nephro cont tacrolimus prn transfusions ppi zofran prn bowel regimen follow labs supportive care swallow eval Subjective ROS Limited/Unobtainable: No Allergies: Coded Allergies: CEPHALEXIN (Unverified Allergy, Unknown, 02/24/14) SULFAMETHOXAZOLE (Unverified Allergy, Unknown, 02/24/14) TRIMETHOPRIM (Unverified Allergy, Unknown, 02/24/14) Subjective he pulled his NGT again Objective Last 24 Hour Vital Signs Date Time Temp Pulse Resp B/P (MAP) Pulse Ox O2 Delivery O2 Flow Rate FiO2 12/14/18 07:25 77 24 40 12/14/18 05:26 127/53 12/14/18 05:26 68 22 40 12/14/18 04:00 Mechanical Ventilator 12/14/18 04:00 40 12/14/18 04:00 97.7 72 18 127/53 (77) 100 12/14/18 03:22 71 12/14/18 03:20 72 24 40 12/14/18 00:50 69 23 40 12/14/18 00:00 Mechanical Ventilator 12/14/18 00:00 97.9 67 20 113/83 (93) 100 12/13/18 23:47 67 12/13/18 22:48 67 22 40 12/13/18 20:59 80 24 40 12/13/18 20:47 72 130/76 12/13/18 20:00 Mechanical Ventilator 12/13/18 20:00 40 12/13/18 20:00 98.1 74 20 137/82 (100) 100 12/13/18 19:28 71 12/13/18 19:19 72 24 40 12/13/18 17:31 131/64 12/13/18 17:27 69 23 40 12/13/18 16:00 97.9 69 21 155/75 (101) 100 12/13/18 16:00 Mechanical Ventilator 12/13/18 16:00 40 12/13/18 15:27 71 12/13/18 15:16 88 26 40 12/13/18 15:14 99 12/13/18 13:27 74 24 40 12/13/18 12:28 131/64 12/13/18 12:00 98.1 72 20 131/64 (86) 99 12/13/18 12:00 40 12/13/18 12:00 75 12/13/18 12:00 Mechanical Ventilator 12/13/18 11:12 68 23 40 12/13/18 09:06 78 24 40 12/13/18 08:46 70 92/47 12/13/18 08:00 Mechanical Ventilator 12/13/18 08:00 75 12/13/18 08:00 40 12/13/18 08:00 97.7 70 21 92/47 (62) 99 Intake and Output 12/13/18 12/14/18 18:59 06:59 Intake Total 620 ml 640 ml Balance 620 ml 640 ml Free Water 80 ml 100 ml Tube Feeding 540 ml 540 ml Height (Feet): 5 Height (Inches): 5.00 Weight (Pounds): 226 General Appearance: no apparent distress EENT: normal ENT inspection Neck: supple Cardiovascular: normal rate Respiratory/Chest: decreased breath sounds Abdomen: normal bowel sounds, non tender, soft Extremities: non-tender VosoghiTejaJorge MD Dec 14, 2018 07:38
[2018-12-14 08:00] VITALS: BP 117/57
[2018-12-14] MEDS: Aspirin Baby 81mg GT SCH (08:33)
[2018-12-14] MEDS: Bacitracin Oint UD TOPIC SCH ×2 (08:34→20:43)
[2018-12-14] MEDS: Carvedilol 6.25mg Tab PEG SCH ×2 (08:46→20:43)
[2018-12-14 10:12] LABS: BASOPHILS % (AUTO) 0.7 % (0.0-2.0); HEMATOCRIT 30.9 % (42.0-52.0); HEMOGLOBIN 9.7 G/DL (14.2-18.0); LYMPHOCYTES % (AUTO) 11.7 % (20.0-45.0); MEAN CORPUSCULAR VOLUME 80 FL (80-99); MONOCYTES % (AUTO) 8.5 % (1.0-10.0); NEUTROPHILS % (AUTO) 79.1 % (45.0-75.0); PLATELET COUNT 195 K/UL (150-450); RED BLOOD COUNT 3.88 M/UL (4.70-6.10); RED CELL DISTRIBUTION WIDTH 16.3 % (11.6-14.8); WHITE BLOOD COUNT 8.8 K/UL (4.8-10.8)
--- NOTE | 2018-12-14 10:29 | Nephrology Progress Note ---
Assessment/Plan Problem List: (1) ESRD (end stage renal disease) on dialysis (2) Foot ulcer (3) CHF (congestive heart failure) Assessment: Ej Fx 20 % (4) Pacemaker (5) Acute respiratory failure Assessment: with Co2 retention Assessment ESRD with high K and SOB on admit Foot ulcer, likely infected High Troponin likely NSTMI Pacer , Pleural effusion s/p CABGS s/p Liver transplant Plan doing PT , improving HD 12/11 next HD 12/14 done today GT site infection, topical antibiotic Neuro note appreciated placement in process pain med change to dilaudid GT Now has tracheostomy and PEG Adjust BP meds add nitro paste TID HD next Antibiotics by ID start tube feeding / hasPEG per cardio and ID Podiatry and Vascular surgical fu ? DC planning? ALSO COVERING MEDCINE FOR DR BERG Subjective ROS Limited/Unobtainable: No Objective Objective Last 24 Hour Vital Signs Date Time Temp Pulse Resp B/P (MAP) Pulse Ox O2 Delivery O2 Flow Rate FiO2 12/14/18 08:46 71 117/57 12/14/18 08:00 Mechanical Ventilator 12/14/18 08:00 40 12/14/18 08:00 97.5 71 24 117/57 (77) 97 12/14/18 07:25 77 24 40 12/14/18 05:26 127/53 12/14/18 05:26 68 22 40 12/14/18 04:00 Mechanical Ventilator 12/14/18 04:00 40 12/14/18 04:00 97.7 72 18 127/53 (77) 100 12/14/18 03:22 71 12/14/18 03:20 72 24 40 12/14/18 00:50 69 23 40 12/14/18 00:00 Mechanical Ventilator 12/14/18 00:00 97.9 67 20 113/83 (93) 100 12/13/18 23:47 67 12/13/18 22:48 67 22 40 12/13/18 20:59 80 24 40 12/13/18 20:47 72 130/76 12/13/18 20:00 Mechanical Ventilator 12/13/18 20:00 40 12/13/18 20:00 98.1 74 20 137/82 (100) 100 12/13/18 19:28 71 12/13/18 19:19 72 24 40 12/13/18 17:31 131/64 12/13/18 17:27 69 23 40 12/13/18 16:00 97.9 69 21 155/75 (101) 100 12/13/18 16:00 Mechanical Ventilator 12/13/18 16:00 40 12/13/18 15:27 71 12/13/18 15:16 88 26 40 12/13/18 15:14 99 12/13/18 13:27 74 24 40 12/13/18 12:28 131/64 12/13/18 12:00 98.1 72 20 131/64 (86) 99 12/13/18 12:00 40 12/13/18 12:00 75 12/13/18 12:00 Mechanical Ventilator 12/13/18 11:12 68 23 40 Intake and Output 12/13/18 12/14/18 19:00 07:00 Intake Total 620 ml 595 ml Balance 620 ml 595 ml Free Water 80 ml 100 ml Tube Feeding 540 ml 495 ml Laboratory Tests 12/14/18 04:00: White Blood Count 8.8, Red Blood Count 3.88L, Hemoglobin 9.7L, Hematocrit 30.9L , Mean Corpuscular Volume 80, Mean Corpuscular Hemoglobin 24.9L, Mean Corpuscular Hemoglobin Concent 31.3L, Red Cell Distribution Width 16.3H, Platelet Count 195, Mean Platelet Volume 7.1, Neutrophils (%) (Auto) 79.1H, Lymphocytes (%) (Auto) 11.7L, Monocytes (%) (Auto) 8.5, Eosinophils (%) (Auto) 0.0, Basophils (%) (Auto) 0.7, Sodium Level [Pending], Potassium Level [Pending] , Chloride Level [Pending], Carbon Dioxide Level [Pending], Blood Urea Nitrogen [Pending], Creatinine [Pending], Estimat Glomerular Filtration Rate [Pending], Glucose Level [Pending], Uric Acid [Pending], Calcium Level [Pending], Phosphorus Level [Pending], Magnesium Level [Pending], Total Bilirubin [Pending] , Aspartate Amino Transf (AST/SGOT) [Pending], Alanine Aminotransferase (ALT/ SGPT) [Pending], Alkaline Phosphatase [Pending], C-Reactive Protein, Quantitative [Pending], Pro-B-Type Natriuretic Peptide [Pending], Total Protein [Pending], Albumin [Pending], Globulin [Pending] Height (Feet): 5 Height (Inches): 5.00 Weight (Pounds): 226 General Appearance: no apparent distress Objective no other change Nakul Stevens MD Dec 14, 2018 10:29
[2018-12-14 10:42] LABS: ALANINE AMINOTRANSFERASE 9 U/L (12-78); ALBUMIN 1.9 G/DL (3.4-5.0); ALBUMIN/GLOBULIN RATIO 0.5 (1.0-2.7); ALKALINE PHOSPHATASE 103 U/L (46-116); ANION GAP 11 mmol/L (5-15); ASPARTATE AMINO TRANSFERASE 12 U/L (15-37); BILIRUBIN,TOTAL 0.3 MG/DL (0.2-1.0); BLOOD UREA NITROGEN 68 mg/dL (7-18); CALCIUM 8.6 MG/DL (8.5-10.1); CARBON DIOXIDE 28 MMOL/L (21-32); CHLORIDE 90 MMOL/L (98-107); CREATININE 7.6 MG/DL (0.55-1.30); PHOSPHORUS 3.7 MG/DL (2.5-4.9); POTASSIUM 4.8 MMOL/L (3.5-5.1); SODIUM 129 MMOL/L (136-145)
[2018-12-14 12:00] VITALS: BP 104/71
--- NOTE | 2018-12-14 12:08 | General Progress Note ---
Progress Note Progress Note pt is known to me for dialysis access and now has a non-healing wound on right foot which is causing him pain. PMH/ROS/Hosp. course noted. Exam -- on vent via trach; awake and alert; NAD; AVSS AVF in bilat. UE with thrill.; right arm with edema and open wound in forearm. feet warm; right heel with open wound, no drainage, no pedal pulses; femoral pulses present labs/imaging reviewed A/P -- Multilevel AOD LE's with non-healing foot ulcer -- will arrange angio and poss. revascularization -- right arm edema... r/o central venous occlusion -- will arrange AVF angio soon -- cont. HD via LUE AVF -- local foot care per podiatry -- abx per ID/PMD Gee Salmeron MD Dec 14, 2018 12:08
--- NOTE | 2018-12-14 14:17 | Cardiac Electrophysiology PN ---
Assessment/Plan Assessment/Plan 1. Troponin leak due to renal failure. No CP or SOB 2. CAD S/P CABG. On Coreg 6.25 mg bid, aspirin 162 and Lipitor 3. NSVT in setting of old CO and CABG. EF 55%. No Syncope 4. Congestive heart failure. On hemodialysis 5. S/P R. [employer] dual chamber pacemaker with Nl Fx. 6. End-stage renal disease, on hemodialysis per Dr. Stevens 7. Right foot ulcer. Antibiotic per Dr. Landis. FU by Dr. Huizar 8. History of liver transplant on Prograf 9. Respiratory failure, S/P tracheostomy. 10. Pleural effusion. FU Dr. Mendoza 11. Dysphagia, S/P PEG Awaiting placement DW RN Subjective Subjective On the vent via tracheostomy. No events. Objective Last 24 Hour Vital Signs Date Time Temp Pulse Resp B/P (MAP) Pulse Ox O2 Delivery O2 Flow Rate FiO2 12/14/18 13:15 73 24 40 12/14/18 11:55 117/57 12/14/18 10:36 78 23 40 12/14/18 09:15 81 31 40 12/14/18 08:46 71 117/57 12/14/18 08:00 75 12/14/18 08:00 Mechanical Ventilator 12/14/18 08:00 40 12/14/18 08:00 97.5 71 24 117/57 (77) 97 12/14/18 07:25 77 24 40 12/14/18 05:26 127/53 12/14/18 05:26 68 22 40 12/14/18 04:00 Mechanical Ventilator 12/14/18 04:00 40 12/14/18 04:00 97.7 72 18 127/53 (77) 100 12/14/18 03:22 71 12/14/18 03:20 72 24 40 12/14/18 00:50 69 23 40 12/14/18 00:00 Mechanical Ventilator 12/14/18 00:00 97.9 67 20 113/83 (93) 100 12/13/18 23:47 67 12/13/18 22:48 67 22 40 12/13/18 20:59 80 24 40 12/13/18 20:47 72 130/76 12/13/18 20:00 Mechanical Ventilator 12/13/18 20:00 40 12/13/18 20:00 98.1 74 20 137/82 (100) 100 12/13/18 19:28 71 12/13/18 19:19 72 24 40 12/13/18 17:31 131/64 12/13/18 17:27 69 23 40 12/13/18 16:00 97.9 69 21 155/75 (101) 100 12/13/18 16:00 Mechanical Ventilator 12/13/18 16:00 40 12/13/18 15:27 71 12/13/18 15:16 88 26 40 12/13/18 15:14 99 Intake and Output 12/13/18 12/14/18 19:00 07:00 Intake Total 620 ml 640 ml Balance 620 ml 640 ml Free Water 80 ml 100 ml Tube Feeding 540 ml 540 ml Laboratory Tests Test 12/14/18 04:00 White Blood Count 8.8 K/UL (4.8-10.8) Red Blood Count 3.88 M/UL (4.70-6.10) L Hemoglobin 9.7 G/DL (14.2-18.0) L Hematocrit 30.9 % (42.0-52.0) L Mean Corpuscular Volume 80 FL (80-99) Mean Corpuscular Hemoglobin 24.9 PG (27.0-31.0) L Mean Corpuscular Hemoglobin Concent 31.3 G/DL (32.0-36.0) L Red Cell Distribution Width 16.3 % (11.6-14.8) H Platelet Count 195 K/UL (150-450) Mean Platelet Volume 7.1 FL (6.5-10.1) Neutrophils (%) (Auto) 79.1 % (45.0-75.0) H Lymphocytes (%) (Auto) 11.7 % (20.0-45.0) L Monocytes (%) (Auto) 8.5 % (1.0-10.0) Eosinophils (%) (Auto) 0.0 % (0.0-3.0) Basophils (%) (Auto) 0.7 % (0.0-2.0) Sodium Level 129 MMOL/L (136-145) L Potassium Level 4.8 MMOL/L (3.5-5.1) Chloride Level 90 MMOL/L (98-107) L Carbon Dioxide Level 28 MMOL/L (21-32) Anion Gap 11 mmol/L (5-15) Blood Urea Nitrogen 68 mg/dL (7-18) H Creatinine 7.6 MG/DL (0.55-1.30) H Estimat Glomerular Filtration Rate 7.2 mL/min (>60) Glucose Level 156 MG/DL (74-106) H Uric Acid 4.7 MG/DL (2.6-7.2) Calcium Level 8.6 MG/DL (8.5-10.1) Phosphorus Level 3.7 MG/DL (2.5-4.9) Magnesium Level 2.2 MG/DL (1.8-2.4) Total Bilirubin 0.3 MG/DL (0.2-1.0) Aspartate Amino Transf (AST/SGOT) 12 U/L (15-37) L Alanine Aminotransferase (ALT/SGPT) 9 U/L (12-78) L Alkaline Phosphatase 103 U/L (46-116) C-Reactive Protein, Quantitative 16.9 mg/dL (0.00-0.90) H Pro-B-Type Natriuretic Peptide > 33861 pg/mL (0-125) H Total Protein 6.1 G/DL (6.4-8.2) L Albumin 1.9 G/DL (3.4-5.0) L Globulin 4.2 g/dL Albumin/Globulin Ratio 0.5 (1.0-2.7) L Objective HEAD AND NECK: No JVD. Tracheostomy intact LUNGS: Clear CARDIOVASCULAR: Irregular S1 and S2 with no gallop. Sternotomy is intact Pacemaker in the right subclavian ABDOMEN: Soft.PEG in place EXTREMITIES: 1+ pitting edema Shivam Sharpe MD Dec 14, 2018 14:17
--- NOTE | 2018-12-14 15:02 | General Progress Note ---
Assessment/Plan Assessment/Plan: Assessment and Recs: # Coagulopathy likely secondary to decreased Vitk dependent cofactors (high INR , PT) --> monitor closely for any evidence of bleeding --> hold off on mixing study at this time unless severe changes noted --> VIT K on prn basis sq can be administered ==> recently has improved inr 1.2-->1.1 # Anemia of chronic disease due to underlying chronic medical issues, multifactorial as well as kidney disease --> Anemia workup has been ordered, rule out gi bleed, seen by gi, also reviewed w/u --> HAS BEEN reordered since refusing --> No evidence of hemolysis is noted, peripheral smear has been reviewed. --> Epogen can be consider if hgb downtrends --> Medications have been reviewed --> evaluate with Gi team prn --> transfuse if hgb is < 7 (will trend CBC daily) ==> hgb trend 11.2-->10.9-->10.8-->10.7-->10.2 # Failure to thrive is likely related to poor overall status, poor functional status --> with multiple decub ulcerations that are noted, seen by id/surgery --> s/p trach as well --> cea is wnl # Acute respiratory failure is now s/p trach to vent --> as per surgery recs # Ground glass opacity present on imaging of lung --> with pleural effusions, s/p drainage at this time --> no evidence for malignancy is noted # Pleural effusion --> s/p thoracentesis # Hyperkalemia --> kayxelate has been given # Renal failure --> per renal recs, appreciated --> getting hd as per schedule # Altered level of consciousness ==> currently as per baseline The timing of this note does not necessarily reflect the time of the patient was seen. Greatly appreciate consultation! Subjective Constitutional: Denies: no symptoms, chills, diaphoresis, fever, malaise, weakness, other Cardiovascular: Denies: no symptoms, chest pain, edema, irregular heart rate, lightheadedness, palpitations, syncope, other Respiratory: Denies: no symptoms, cough, orthopnea, shortness of breath, SOB with excertion, SOB at rest, sputum, stridor, wheezing, other Gastrointestinal/Abdominal: Denies: no symptoms, abdomen distended, abdominal pain, black stools, tarry stools, blood in stool, constipated, diarrhea, difficulty swallowing, nausea, poor appetite, poor fluid intake, rectal bleeding , vomiting, other Endocrine: Denies: no symptoms, excessive sweating, flushing, intolerance to cold, intolerance to heat, increased hunger, increased thirst, increased urine, unexplained weight gain, unexplained weight loss, other Hematologic/Lymphatic: Denies: no symptoms, anemia, easy bleeding, easy bruising, other Allergies: Coded Allergies: CEPHALEXIN (Unverified Allergy, Unknown, 02/24/14) SULFAMETHOXAZOLE (Unverified Allergy, Unknown, 02/24/14) TRIMETHOPRIM (Unverified Allergy, Unknown, 02/24/14) Subjective 11/30: comfortable, on abx, no complaints, on t-piece 12/01: to have hd done potentially tomorrow, is more alert/awake 12/02: no major bleeding, hgb remains approx 11, no changes 12/03: no events, breathing mildly better, hgb is improved 12/04: on vent/trach, no major changes, sr ekg 12/10: small amount of secretions, on trach/vent, no issues otherwise 12/11: no major issues, no complaints, labs reviewed, no sig changes 12/13: no events to report, no fevers or chills, awaiting placement 12/14: no changes, no major events to report, no fevers or chills Objective Last 24 Hour Vital Signs Date Time Temp Pulse Resp B/P (MAP) Pulse Ox O2 Delivery O2 Flow Rate FiO2 12/14/18 13:15 73 24 40 12/14/18 11:55 117/57 12/14/18 10:36 78 23 40 12/14/18 09:15 81 31 40 12/14/18 08:46 71 117/57 12/14/18 08:00 75 12/14/18 08:00 Mechanical Ventilator 12/14/18 08:00 40 12/14/18 08:00 97.5 71 24 117/57 (77) 97 12/14/18 07:25 77 24 40 12/14/18 05:26 127/53 12/14/18 05:26 68 22 40 12/14/18 04:00 Mechanical Ventilator 12/14/18 04:00 40 12/14/18 04:00 97.7 72 18 127/53 (77) 100 12/14/18 03:22 71 12/14/18 03:20 72 24 40 12/14/18 00:50 69 23 40 12/14/18 00:00 Mechanical Ventilator 12/14/18 00:00 97.9 67 20 113/83 (93) 100 12/13/18 23:47 67 12/13/18 22:48 67 22 40 12/13/18 20:59 80 24 40 12/13/18 20:47 72 130/76 12/13/18 20:00 Mechanical Ventilator 12/13/18 20:00 40 12/13/18 20:00 98.1 74 20 137/82 (100) 100 12/13/18 19:28 71 12/13/18 19:19 72 24 40 12/13/18 17:31 131/64 12/13/18 17:27 69 23 40 12/13/18 16:00 97.9 69 21 155/75 (101) 100 12/13/18 16:00 Mechanical Ventilator 12/13/18 16:00 40 12/13/18 15:27 71 12/13/18 15:16 88 26 40 12/13/18 15:14 99 Intake and Output 12/13/18 12/14/18 19:00 07:00 Intake Total 620 ml 640 ml Balance 620 ml 640 ml Free Water 80 ml 100 ml Tube Feeding 540 ml 540 ml Laboratory Tests 12/14/18 04:00: White Blood Count 8.8, Red Blood Count 3.88L, Hemoglobin 9.7L, Hematocrit 30.9L , Mean Corpuscular Volume 80, Mean Corpuscular Hemoglobin 24.9L, Mean Corpuscular Hemoglobin Concent 31.3L, Red Cell Distribution Width 16.3H, Platelet Count 195, Mean Platelet Volume 7.1, Neutrophils (%) (Auto) 79.1H, Lymphocytes (%) (Auto) 11.7L, Monocytes (%) (Auto) 8.5, Eosinophils (%) (Auto) 0.0, Basophils (%) (Auto) 0.7, Sodium Level 129L, Potassium Level 4.8, Chloride Level 90L, Carbon Dioxide Level 28, Anion Gap 11, Blood Urea Nitrogen 68H, Creatinine 7.6H, Estimat Glomerular Filtration Rate 7.2, Glucose Level 156H, Uric Acid 4.7, Calcium Level 8.6, Phosphorus Level 3.7, Magnesium Level 2.2, Total Bilirubin 0.3, Aspartate Amino Transf (AST/SGOT) 12L, Alanine Aminotransferase (ALT/SGPT) 9L, Alkaline Phosphatase 103, C-Reactive Protein, Quantitative 16.9H, Pro-B-Type Natriuretic Peptide > 52168E, Total Protein 6.1L , Albumin 1.9L, Globulin 4.2, Albumin/Globulin Ratio 0.5L Height (Feet): 5 Height (Inches): 5.00 Weight (Pounds): 226 Objective PE General Appearance: mild distress, moderate distress Lines, tubes and drains: peripheral HEENT: EOMI, thrush, tonsils swollen ++trach Neck: normal inspection Respiratory/Chest: decreased breath sounds, accessory muscle use Cardiovascular/Chest: tachycardia Abdomen: soft, no organomegaly, no mass, ++ peg Extremities: other Skin Exam: warm/dry, rash Neurologic: alert, responsive Zacarias Khoury MD Dec 14, 2018 15:02
[2018-12-14 16:00] VITALS: BP 125/56
--- NOTE | 2018-12-14 16:58 | Infectious Diseases Prog Note ---
Assessment/Plan Problems: (1) G-tube site cellulitis Assessment & Plan: culture from the G tube site grew pseudomonas , continue ciprofloxacin for 7 days , continue local care and antibiotics as per GI (2) Thrush, oral Assessment & Plan: continue local nystatin , S/P micafungin for three weeks empirically (3) HCV antibody positive Assessment & Plan: no evidence of active infection, with undetectable viral load , suspect due to previous infection , cleared, S/P liver transplant . (4) Foot ulcer Assessment & Plan: in diabetic patient , with MRSA , S/P vancomycin treatment with HD for two weeks , recommend vascular eval . bone scan ruled out osteomyelitis of the heel . follow up with applications manager (5) DM (diabetes mellitus) Assessment & Plan: recommend tight glycemic control to keep blood glucose between 100-140 (6) CHF (congestive heart failure) Assessment & Plan: on HD , renal is following, monitor daily weight (7) Severe tongue swelling Assessment & Plan: improving , s/p tracheostomy to protect his airway since respiratory status worsened . now improving, pulmonary is following (8) Pleural effusion Assessment & Plan: recurrent on the right, with lung collapse , S/P thoracentesis X2 with removal of 1.5 cc of clear fluids. PREVIOUS culture were negative with negative cytology Subjective Constitutional: Reports: no symptoms HEENT: Reports: no symptoms Respiratory: Reports: no symptoms Breasts: Reports: no symptoms Cardiovascular: Reports: no symptoms Gastrointestinal/Abdominal: Reports: no symptoms Genitourinary: Reports: no symptoms Neurologic: Reports: no symptoms Psychiatric: Reports: no symptoms Skin: Reports: no symptoms Endocrine: Reports: no symptoms Hematologic: Reports: no symptoms Musculoskeletal: Reports: no symptoms Allergies: Coded Allergies: CEPHALEXIN (Unverified Allergy, Unknown, 02/24/14) SULFAMETHOXAZOLE (Unverified Allergy, Unknown, 02/24/14) TRIMETHOPRIM (Unverified Allergy, Unknown, 02/24/14) Subjective he was comfortable, lying in bed, no tongue swelling , awake and responsive, no fever or chills, no significant secretions , no SOB . has less thrush on his tongue Objective Vital Signs Last 24 Hour Vital Signs Date Time Temp Pulse Resp B/P (MAP) Pulse Ox O2 Delivery O2 Flow Rate FiO2 12/14/18 13:15 73 24 40 12/14/18 12:00 40 12/14/18 12:00 97.5 75 24 104/71 (82) 98 12/14/18 12:00 Mechanical Ventilator 12/14/18 11:55 117/57 12/14/18 10:36 78 23 40 12/14/18 09:15 81 31 40 12/14/18 08:46 71 117/57 12/14/18 08:00 75 12/14/18 08:00 Mechanical Ventilator 12/14/18 08:00 40 12/14/18 08:00 97.5 71 24 117/57 (77) 97 12/14/18 07:25 77 24 40 12/14/18 05:26 127/53 12/14/18 05:26 68 22 40 12/14/18 04:00 Mechanical Ventilator 12/14/18 04:00 40 12/14/18 04:00 97.7 72 18 127/53 (77) 100 12/14/18 03:22 71 12/14/18 03:20 72 24 40 12/14/18 00:50 69 23 40 12/14/18 00:00 Mechanical Ventilator 12/14/18 00:00 97.9 67 20 113/83 (93) 100 12/13/18 23:47 67 12/13/18 22:48 67 22 40 12/13/18 20:59 80 24 40 12/13/18 20:47 72 130/76 12/13/18 20:00 Mechanical Ventilator 12/13/18 20:00 40 12/13/18 20:00 98.1 74 20 137/82 (100) 100 12/13/18 19:28 71 12/13/18 19:19 72 24 40 12/13/18 17:31 131/64 12/13/18 17:27 69 23 40 Height (Feet): 5 Height (Inches): 5.00 Weight (Pounds): 226 General Appearance: WD/WN, no acute distress HEENT: normocephalic, atraumatic, anicteric, mucous membranes moist Respiratory/Chest: chest wall non-tender, lungs clear, normal breath sounds, no respiratory distress, no accessory muscle use Cardiovascular: normal peripheral pulses, normal rate, regular rhythm, no gallop/murmur, no JVD Abdomen: normal bowel sounds, soft, non tender, no organomegaly, non distended , no mass, no scars Genitourinary: normal external genitalia Extremities: no cyanosis, no clubbing Skin: no rash, no lesions, no ulcers 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: glass cylinder flanger 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 normal, no motor/sensory deficits, alert, oriented x 3, responsive Lymphatic: no neck adenopathy, no groin adenopathy Musculoskeletal: normal muscle bulk, no effusion Laboratory Tests Test 12/14/18 04:00 White Blood Count 8.8 K/UL (4.8-10.8) Red Blood Count 3.88 M/UL (4.70-6.10) L Hemoglobin 9.7 G/DL (14.2-18.0) L Hematocrit 30.9 % (42.0-52.0) L Mean Corpuscular Volume 80 FL (80-99) Mean Corpuscular Hemoglobin 24.9 PG (27.0-31.0) L Mean Corpuscular Hemoglobin Concent 31.3 G/DL (32.0-36.0) L Red Cell Distribution Width 16.3 % (11.6-14.8) H Platelet Count 195 K/UL (150-450) Mean Platelet Volume 7.1 FL (6.5-10.1) Neutrophils (%) (Auto) 79.1 % (45.0-75.0) H Lymphocytes (%) (Auto) 11.7 % (20.0-45.0) L Monocytes (%) (Auto) 8.5 % (1.0-10.0) Eosinophils (%) (Auto) 0.0 % (0.0-3.0) Basophils (%) (Auto) 0.7 % (0.0-2.0) Sodium Level 129 MMOL/L (136-145) L Potassium Level 4.8 MMOL/L (3.5-5.1) Chloride Level 90 MMOL/L (98-107) L Carbon Dioxide Level 28 MMOL/L (21-32) Anion Gap 11 mmol/L (5-15) Blood Urea Nitrogen 68 mg/dL (7-18) H Creatinine 7.6 MG/DL (0.55-1.30) H Estimat Glomerular Filtration Rate 7.2 mL/min (>60) Glucose Level 156 MG/DL (74-106) H Uric Acid 4.7 MG/DL (2.6-7.2) Calcium Level 8.6 MG/DL (8.5-10.1) Phosphorus Level 3.7 MG/DL (2.5-4.9) Magnesium Level 2.2 MG/DL (1.8-2.4) Total Bilirubin 0.3 MG/DL (0.2-1.0) Aspartate Amino Transf (AST/SGOT) 12 U/L (15-37) L Alanine Aminotransferase (ALT/SGPT) 9 U/L (12-78) L Alkaline Phosphatase 103 U/L (46-116) C-Reactive Protein, Quantitative 16.9 mg/dL (0.00-0.90) H Pro-B-Type Natriuretic Peptide > 56374 pg/mL (0-125) H Total Protein 6.1 G/DL (6.4-8.2) L Albumin 1.9 G/DL (3.4-5.0) L Globulin 4.2 g/dL Albumin/Globulin Ratio 0.5 (1.0-2.7) L Current Medications Medications (Trade) Dose Ordered Sig/Aleks Route PRN Reason Start Time Stop Time Status Last Admin Dose Admin Aspirin (ASA) 162 mg DAILY GT 12/08/18 09:00 12/20/18 08:59 12/14/18 08:33 Atorvastatin Calcium (Lipitor) 10 mg BEDTIME NG 12/01/18 21:00 12/21/18 20:59 12/13/18 20:46 Bacitracin (Bacitracin) 1 applic EVERY 12 HOURS TOPIC 12/11/18 21:00 01/06/19 17:59 12/14/18 08:34 Carvedilol (Coreg) 6.25 mg EVERY 12 HOURS PEG 12/06/18 21:00 01/03/19 20:59 12/14/18 08:46 Ciprofloxacin (Cipro 500mg tab) 500 mg Q24H ORAL 12/10/18 21:00 12/17/18 20:59 12/13/18 20:46 Clotrimazole (Lotrimin) 1 applic BID TOPIC 12/07/18 18:00 01/06/19 17:59 12/14/18 08:33 Dextrose (Dextrose 50%) 25 ml Q30M PRN IV Hypoglycemia 12/01/18 19:30 12/31/18 19:29 Dextrose (Dextrose 50%) 50 ml Q30M PRN IV Hypoglycemia 12/01/18 19:30 12/31/18 19:29 Docusate Sodium (Colace) 100 mg EVERY 8 HOURS PRN GT constipation 11/24/18 18:51 12/20/18 18:50 Escitalopram Oxalate (Lexapro) 10 mg DAILY ORAL 12/14/18 12:45 01/13/19 12:44 12/14/18 14:17 Hydralazine HCl (Apresoline) 10 mg Q6H PRN GT For High Blood Pressure 12/03/18 16:45 01/02/19 16:44 12/07/18 04:47 Hydromorphone HCl (Dilaudid) 1 mg Q4H PRN GT For Pain 12/14/18 15:30 12/21/18 15:29 Insulin Aspart (NovoLOG) EVERY 6 HOURS SUBQ 12/02/18 00:00 12/31/18 20:59 12/14/18 12:00 Lactulose (Cephulac) 20 gm THREE TIMES A DAY PRN GT Constipation 11/24/18 18:51 12/23/18 18:50 Lansoprazole (Prevacid) 30 mg BID GT 11/20/18 09:00 12/20/18 08:59 12/14/18 08:33 Mirtazapine (Remeron) 7.5 mg BEDTIME GT 12/14/18 21:00 01/13/19 20:59 Nicotine (Nicoderm) 1 patch Q24H TDERMAL 12/01/18 22:15 12/21/18 22:14 12/13/18 21:29 Nitroglycerin (Nitro-Bid) 1 inch TID@0600,1200,1800 TOPIC 12/07/18 12:00 01/06/19 11:59 12/14/18 11:55 Olanzapine (ZyPREXA) 2.5 mg Q6H PRN ORAL agitation 11/15/18 23:00 12/15/18 22:59 12/06/18 00:23 Sevelamer Carbonate (Renvela) 800 mg Q8HR GT 11/20/18 14:00 12/20/18 13:59 12/14/18 14:17 Tacrolimus (Prograf) 2 mg MoWeFr@0000,1200 ORAL 12/07/18 00:00 12/21/18 00:00 12/14/18 11:55 Tacrolimus (Prograf) 2 mg Johnny@0900,2100 ORAL 12/05/18 21:00 01/04/19 20:59 12/13/18 20:46 Francois Landis M.D. Dec 14, 2018 16:58
--- NOTE | 2018-12-14 17:07 | Pulmonology Progress Note ---
Assessment/Plan Assessment/Plan 1. Resp failure, hypercapneic 2. End-stage renal disease, on dialysis, status post multiple upper extremity vascular procedures. 3. Coronary artery bypass surgery. 4. Diabetes. 5. Dysphonia, tongue swelling, resolved; s/p trach PLAN: Not able to tolerate weaning tolerates feeds disc w RN dc when bed available case mgmt working on placement I will see intermittently Subjective Constitutional: Reports: no symptoms Allergies: Coded Allergies: CEPHALEXIN (Unverified Allergy, Unknown, 02/24/14) SULFAMETHOXAZOLE (Unverified Allergy, Unknown, 02/24/14) TRIMETHOPRIM (Unverified Allergy, Unknown, 02/24/14) Objective Last 24 Hour Vital Signs Date Time Temp Pulse Resp B/P (MAP) Pulse Ox O2 Delivery O2 Flow Rate FiO2 12/14/18 13:15 73 24 40 12/14/18 12:00 40 12/14/18 12:00 97.5 75 24 104/71 (82) 98 12/14/18 12:00 Mechanical Ventilator 12/14/18 11:55 117/57 12/14/18 10:36 78 23 40 12/14/18 09:15 81 31 40 12/14/18 08:46 71 117/57 12/14/18 08:00 75 12/14/18 08:00 Mechanical Ventilator 12/14/18 08:00 40 12/14/18 08:00 97.5 71 24 117/57 (77) 97 12/14/18 07:25 77 24 40 12/14/18 05:26 127/53 12/14/18 05:26 68 22 40 12/14/18 04:00 Mechanical Ventilator 12/14/18 04:00 40 12/14/18 04:00 97.7 72 18 127/53 (77) 100 12/14/18 03:22 71 12/14/18 03:20 72 24 40 12/14/18 00:50 69 23 40 12/14/18 00:00 Mechanical Ventilator 12/14/18 00:00 97.9 67 20 113/83 (93) 100 12/13/18 23:47 67 12/13/18 22:48 67 22 40 12/13/18 20:59 80 24 40 12/13/18 20:47 72 130/76 12/13/18 20:00 Mechanical Ventilator 12/13/18 20:00 40 12/13/18 20:00 98.1 74 20 137/82 (100) 100 12/13/18 19:28 71 12/13/18 19:19 72 24 40 12/13/18 17:31 131/64 12/13/18 17:27 69 23 40 Intake and Output 12/13/18 12/14/18 19:00 07:00 Intake Total 620 ml 640 ml Balance 620 ml 640 ml Free Water 80 ml 100 ml Tube Feeding 540 ml 540 ml Objective trach on vent General Appearance: no acute distress HEENT: anicteric Respiratory/Chest: lungs clear Cardiovascular: normal rate Laboratory Tests 12/14/18 04:00: White Blood Count 8.8, Red Blood Count 3.88L, Hemoglobin 9.7L, Hematocrit 30.9L , Mean Corpuscular Volume 80, Mean Corpuscular Hemoglobin 24.9L, Mean Corpuscular Hemoglobin Concent 31.3L, Red Cell Distribution Width 16.3H, Platelet Count 195, Mean Platelet Volume 7.1, Neutrophils (%) (Auto) 79.1H, Lymphocytes (%) (Auto) 11.7L, Monocytes (%) (Auto) 8.5, Eosinophils (%) (Auto) 0.0, Basophils (%) (Auto) 0.7, Sodium Level 129L, Potassium Level 4.8, Chloride Level 90L, Carbon Dioxide Level 28, Anion Gap 11, Blood Urea Nitrogen 68H, Creatinine 7.6H, Estimat Glomerular Filtration Rate 7.2, Glucose Level 156H, Uric Acid 4.7, Calcium Level 8.6, Phosphorus Level 3.7, Magnesium Level 2.2, Total Bilirubin 0.3, Aspartate Amino Transf (AST/SGOT) 12L, Alanine Aminotransferase (ALT/SGPT) 9L, Alkaline Phosphatase 103, C-Reactive Protein, Quantitative 16.9H, Pro-B-Type Natriuretic Peptide > 27450P, Total Protein 6.1L , Albumin 1.9L, Globulin 4.2, Albumin/Globulin Ratio 0.5L Current Medications Medications (Trade) Dose Ordered Sig/Aleks Route PRN Reason Start Time Stop Time Status Last Admin Dose Admin Aspirin (ASA) 162 mg DAILY GT 12/08/18 09:00 12/20/18 08:59 12/14/18 08:33 Atorvastatin Calcium (Lipitor) 10 mg BEDTIME NG 12/01/18 21:00 12/21/18 20:59 12/13/18 20:46 Bacitracin (Bacitracin) 1 applic EVERY 12 HOURS TOPIC 12/11/18 21:00 01/06/19 17:59 12/14/18 08:34 Carvedilol (Coreg) 6.25 mg EVERY 12 HOURS PEG 12/06/18 21:00 01/03/19 20:59 12/14/18 08:46 Ciprofloxacin (Cipro 500mg tab) 500 mg Q24H ORAL 12/10/18 21:00 12/17/18 20:59 12/13/18 20:46 Clotrimazole (Lotrimin) 1 applic BID TOPIC 12/07/18 18:00 01/06/19 17:59 12/14/18 08:33 Dextrose (Dextrose 50%) 25 ml Q30M PRN IV Hypoglycemia 12/01/18 19:30 12/31/18 19:29 Dextrose (Dextrose 50%) 50 ml Q30M PRN IV Hypoglycemia 12/01/18 19:30 12/31/18 19:29 Docusate Sodium (Colace) 100 mg EVERY 8 HOURS PRN GT constipation 11/24/18 18:51 12/20/18 18:50 Escitalopram Oxalate (Lexapro) 10 mg DAILY ORAL 12/14/18 12:45 01/13/19 12:44 12/14/18 14:17 Hydralazine HCl (Apresoline) 10 mg Q6H PRN GT For High Blood Pressure 12/03/18 16:45 01/02/19 16:44 12/07/18 04:47 Hydromorphone HCl (Dilaudid) 1 mg Q4H PRN GT For Pain 12/14/18 15:30 12/21/18 15:29 Insulin Aspart (NovoLOG) EVERY 6 HOURS SUBQ 12/02/18 00:00 12/31/18 20:59 12/14/18 12:00 Lactulose (Cephulac) 20 gm THREE TIMES A DAY PRN GT Constipation 11/24/18 18:51 12/23/18 18:50 Lansoprazole (Prevacid) 30 mg BID GT 11/20/18 09:00 12/20/18 08:59 12/14/18 08:33 Mirtazapine (Remeron) 7.5 mg BEDTIME GT 12/14/18 21:00 01/13/19 20:59 Nicotine (Nicoderm) 1 patch Q24H TDERMAL 12/01/18 22:15 12/21/18 22:14 12/13/18 21:29 Nitroglycerin (Nitro-Bid) 1 inch TID@0600,1200,1800 TOPIC 12/07/18 12:00 01/06/19 11:59 12/14/18 11:55 Olanzapine (ZyPREXA) 2.5 mg Q6H PRN ORAL agitation 11/15/18 23:00 12/15/18 22:59 12/06/18 00:23 Sevelamer Carbonate (Renvela) 800 mg Q8HR GT 11/20/18 14:00 12/20/18 13:59 12/14/18 14:17 Tacrolimus (Prograf) 2 mg MoWeFr@0000,1200 ORAL 12/07/18 00:00 12/21/18 00:00 12/14/18 11:55 Tacrolimus (Prograf) 2 mg SuTuThSa@0900,2100 ORAL 12/05/18 21:00 01/04/19 20:59 12/13/18 20:46 Saroj Mendoza MD Dec 14, 2018 17:07
--- NOTE | 2018-12-14 18:50 | Psych Consult Progress Note ---
Psychiatry Progress Note Psychiatry Progress Note Subjective the pt was more anxious today. he stated that he was unable to sleep at night the pt stated that he was hopeless and scared that he is not improving. the pts nurse was present in the room Medications Current Medications Medications (Trade) Dose Ordered Sig/Aleks Route PRN Reason Start Time Stop Time Status Last Admin Dose Admin Aspirin (ASA) 162 mg DAILY GT 12/08/18 09:00 12/20/18 08:59 12/14/18 08:33 Atorvastatin Calcium (Lipitor) 10 mg BEDTIME NG 12/01/18 21:00 12/21/18 20:59 12/13/18 20:46 Bacitracin (Bacitracin) 1 applic EVERY 12 HOURS TOPIC 12/11/18 21:00 01/06/19 17:59 12/14/18 08:34 Carvedilol (Coreg) 6.25 mg EVERY 12 HOURS PEG 12/06/18 21:00 01/03/19 20:59 12/14/18 08:46 Ciprofloxacin (Cipro 500mg tab) 500 mg Q24H ORAL 12/10/18 21:00 12/17/18 20:59 12/13/18 20:46 Clotrimazole (Lotrimin) 1 applic BID TOPIC 12/07/18 18:00 01/06/19 17:59 12/14/18 17:51 Dextrose (Dextrose 50%) 25 ml Q30M PRN IV Hypoglycemia 12/01/18 19:30 12/31/18 19:29 Dextrose (Dextrose 50%) 50 ml Q30M PRN IV Hypoglycemia 12/01/18 19:30 12/31/18 19:29 Docusate Sodium (Colace) 100 mg EVERY 8 HOURS PRN GT constipation 11/24/18 18:51 12/20/18 18:50 Escitalopram Oxalate (Lexapro) 10 mg DAILY ORAL 12/14/18 12:45 01/13/19 12:44 12/14/18 14:17 Hydralazine HCl (Apresoline) 10 mg Q6H PRN GT For High Blood Pressure 12/03/18 16:45 01/02/19 16:44 12/07/18 04:47 Hydromorphone HCl (Dilaudid) 1 mg Q4H PRN GT For Pain 12/14/18 15:30 12/21/18 15:29 Insulin Aspart (NovoLOG) EVERY 6 HOURS SUBQ 12/02/18 00:00 12/31/18 20:59 12/14/18 17:58 Lactulose (Cephulac) 20 gm THREE TIMES A DAY PRN GT Constipation 11/24/18 18:51 12/23/18 18:50 Lansoprazole (Prevacid) 30 mg BID GT 11/20/18 09:00 12/20/18 08:59 12/14/18 17:50 Mirtazapine (Remeron) 7.5 mg BEDTIME GT 12/14/18 21:00 01/13/19 20:59 Nicotine (Nicoderm) 1 patch Q24H TDERMAL 12/01/18 22:15 12/21/18 22:14 12/13/18 21:29 Nitroglycerin (Nitro-Bid) 1 inch TID@0600,1200,1800 TOPIC 12/07/18 12:00 01/06/19 11:59 12/14/18 17:50 Olanzapine (ZyPREXA) 2.5 mg Q6H PRN ORAL agitation 11/15/18 23:00 12/15/18 22:59 12/06/18 00:23 Sevelamer Carbonate (Renvela) 800 mg Q8HR GT 11/20/18 14:00 12/20/18 13:59 12/14/18 14:17 Tacrolimus (Prograf) 2 mg MoWeFr@0000,1200 ORAL 12/07/18 00:00 12/21/18 00:00 12/14/18 11:55 Tacrolimus (Prograf) 2 mg SuTuThSa@0900,2100 ORAL 12/05/18 21:00 01/04/19 20:59 12/13/18 20:46 Allergies: Coded Allergies: CEPHALEXIN (Unverified Allergy, Unknown, 02/24/14) SULFAMETHOXAZOLE (Unverified Allergy, Unknown, 02/24/14) TRIMETHOPRIM (Unverified Allergy, Unknown, 02/24/14) Objective Data Height (Feet): 5 Height (Inches): 5.00 Weight (Pounds): 226 General Appearance: WD/WN, alert, mild distress, overweight, alert oriented x3 Appearance: disheveled Behavior Mannerisms: good eye contact Mental Status Exam - Affect: constricted Mental Status Exam - Mood: depressed, anxious Speech: aphasic Mental Status Exam - Thought P: logical, goal-directed Mental Status Exam - Suicidal: not present Assessment/Plan Problem List: (1) Encephalopathy acute ICD Codes: G93.40 - Encephalopathy, unspecified SNOMED: [id number], [id number] Status: stable Assessment/Plan: dc Zyprexa 2.5mg po qhs lexapro 10mg po qam remeron 7.5mg po qhs Jeffrey Lala MD Dec 14, 2018 18:50
[2018-12-14 20:00] VITALS: BP 126/72
[2018-12-14] MEDS: Ciprofloxacin 500mg tab ORAL SCH (20:44)
--- NOTE | 2018-12-14 20:47 | Neurology Progress Note ---
Interim History Interim History Interim History Mr. Restrepo feels relatively well. He is breathing well. He says he has not undergone a weaning trial today. He feels about the same as yesterday with regards to his strength. His right foot is less painful. The mind has been clearer. He has not been out of bed or at the edge of the bed today. He has not walked yet. The right upper extremity is less swollen and less painful. He denies any new neurologic symptoms. Review of Systems Neuro Review of Systems Benign. Objective Physical Exam Last Vital Signs Date Time Temp Pulse Resp B/P (MAP) Pulse Ox O2 Delivery O2 Flow Rate FiO2 12/14/18 20:00 97.0 70 24 126/72 (90) 100 12/14/18 17:06 40 12/14/18 16:00 Mechanical Ventilator Laboratory Tests Test 12/14/18 04:00 White Blood Count 8.8 K/UL (4.8-10.8) Red Blood Count 3.88 M/UL (4.70-6.10) L Hemoglobin 9.7 G/DL (14.2-18.0) L Hematocrit 30.9 % (42.0-52.0) L Mean Corpuscular Volume 80 FL (80-99) Mean Corpuscular Hemoglobin 24.9 PG (27.0-31.0) L Mean Corpuscular Hemoglobin Concent 31.3 G/DL (32.0-36.0) L Red Cell Distribution Width 16.3 % (11.6-14.8) H Platelet Count 195 K/UL (150-450) Mean Platelet Volume 7.1 FL (6.5-10.1) Neutrophils (%) (Auto) 79.1 % (45.0-75.0) H Lymphocytes (%) (Auto) 11.7 % (20.0-45.0) L Monocytes (%) (Auto) 8.5 % (1.0-10.0) Eosinophils (%) (Auto) 0.0 % (0.0-3.0) Basophils (%) (Auto) 0.7 % (0.0-2.0) Sodium Level 129 MMOL/L (136-145) L Potassium Level 4.8 MMOL/L (3.5-5.1) Chloride Level 90 MMOL/L (98-107) L Carbon Dioxide Level 28 MMOL/L (21-32) Anion Gap 11 mmol/L (5-15) Blood Urea Nitrogen 68 mg/dL (7-18) H Creatinine 7.6 MG/DL (0.55-1.30) H Estimat Glomerular Filtration Rate 7.2 mL/min (>60) Glucose Level 156 MG/DL (74-106) H Uric Acid 4.7 MG/DL (2.6-7.2) Calcium Level 8.6 MG/DL (8.5-10.1) Phosphorus Level 3.7 MG/DL (2.5-4.9) Magnesium Level 2.2 MG/DL (1.8-2.4) Total Bilirubin 0.3 MG/DL (0.2-1.0) Aspartate Amino Transf (AST/SGOT) 12 U/L (15-37) L Alanine Aminotransferase (ALT/SGPT) 9 U/L (12-78) L Alkaline Phosphatase 103 U/L (46-116) C-Reactive Protein, Quantitative 16.9 mg/dL (0.00-0.90) H Pro-B-Type Natriuretic Peptide > 26748 pg/mL (0-125) H Total Protein 6.1 G/DL (6.4-8.2) L Albumin 1.9 G/DL (3.4-5.0) L Globulin 4.2 g/dL Albumin/Globulin Ratio 0.5 (1.0-2.7) L Neurologic Exam Objective PHYSICAL EXAMINATION: GENERAL: He is a well-developed and well-nourished, pleasant gentleman, lying in bed connected to a ventilator via tracheostomy. HEAD: Normocephalic and atraumatic. EENT: Examination benign. NECK: No neck rigidity was observed. He did have a tracheostomy. NEUROLOGICAL EXAMINATION: MENTAL STATUS EXAMINATION: He was awake and alert. He was oriented to person, place, and time. He was able to recall 3/3 words immediately, after 1 minute, and after 3 minutes. He was able to remember president Emi through [employer]. His mathematical skills were minimally impaired. His visuospatial function was preserved. SPEECH: Could not be tested, but he was able to mouth words relatively well. LANGUAGE: He was able to comprehend and express himself relatively well using his communication board. CRANIAL NERVES EXAMINATION: II: The visual mckeon were intact to confrontation testing. III, IV & : The external ocular movements were full and the pupils 3 mm in diameter, equal, round, regular, and reactive sluggishly to light. V: He had normal facial sensations, and the temporales, masseters, and pterygoids functioned normally. VII: He had normal facial expressions and no facial asymmetry. VIII: Hearing was decreased bilaterally with worse hearing on the left side compared to the right. IX: The palate moved symmetrically on phonation. X: Could not be tested. XI: The sternocleidomastoids and trapezii functioned normally. XII: The tongue was in the midline without any fasciculations or atrophy. MOTOR SYSTEM: The tone was normal in all four extremities. Examination of muscle mass revealed generalized muscle wasting. Examination of power revealed G 5/5 power except for G 4+/5 power in the iliopsoas muscles bilaterally. SENSORY EXAMINATION: He had intact sensations to light touch. Other sensory modalities could not be tested adequately. REFLEXES: 1+ and bilaterally symmetrical at the biceps, triceps, brachioradialis , and knees, 0 at both ankles. The plantar responses were flexor bilaterally. COORDINATION: He performed well on [id number] testing. STANCE & GAIT: Were deferred. Impression/Recommendations Diagnostic Impression 1. Mr. Gregg Restrepo is a 68-year-old, right-handed, gentleman with past history of multiple medical problems including hypertension, diabetes mellitus, end-stage renal disease for which he is hemodialysis dependent, prior episodes of sepsis, and prior episodes of encephalopathy, who was admitted to [facility] on October 31, 2018. Following that, he has had a stormy hospital course including pneumonia and sepsis, right foot infection, respiratory failure for which he has needed tracheostomy and in addition he has exhibited an alteration in his mental state with some waxing and waning of his mental state. 2. He feels relatively well. He is breathing well. He says he has not undergone a weaning trial today. He feels about the same as yesterday with regards to his strength. His right foot is less painful. The mind has been clearer. He has not been out of bed or at the edge of the bed today. He has not walked yet. The right upper extremity is less swollen and less painful. He denies any new neurologic symptoms. 3. On neurological examination, at this time, he is fully oriented, has mild problems with recent and remote memory, normal visuospatial function, minimally impaired higher cognitive function. He is able to comprehend and express himself well. He does have mild G 4+/5 weakness in the iliopsoas muscles bilaterally, globally diminished deep tendon reflexes with loss of ankle jerks, but no definite focal or lateralizing neurological findings. 4. His latest laboratory data on my initial evaluation revealed that he was anemic with a hemoglobin of 10.8 G. His last blood gas performed on 11/14/2018 revealed that he had a pCO2 elevated at 56.4 with a normal pO2 of 88.3 and normal pH of 7.37. His latest chemistry panel revealed that he was mildly hyponatremic with a sodium of 130, and had a chloride of 90. The BUN was elevated at 75, creatinine elevated at 7.4, glucose elevated at 156, Hemoglobin A1c elevated at 6.9%, Alkaline phosphatase elevated at 131, and ProBNP greater than 35,000. His last B12 level on 11/07/2018 was 723. His last folate on was 18.6. His last TSH on 12/06/2018 was 4.82, which is minimally elevated. 5. The CT scan of the brain performed on 11/10/2018 was benign for acute intracranial pathology. 6. The EEG done on 12/08/18 revealed left temporal dysfunction. 7. The patient's history and neurological examination are most consistent with mild multifactorial encephalopathy, which apparently waxes and wanes, but no definite focal neurological dysfunction. His encephalopathy is stable today. 8. He tells me that he had a brain bleed many years ago. I did review his imaging done at [facility] a few years ago and he had closed head injuries with subarachnoid and subdural blood in the past. 9. He is worried about his hearing getting worse. Recommendations 1. Continue present management. 2. Continue to correct the patient's toxic metabolic imbalances. 3. Mobilize with PT/OT. 4. Consider getting ENT evaluation for worsening hearing. 5. Observe closely. Pantera Cool M.D., M.S.P.H. Pantera Cool MD Dec 14, 2018 20:47
[2018-12-14] MEDS ORDERED: OLANZapine 2.5mg tab ORAL SCH (21:00)
[2018-12-15] VITALS: BP 134/80
[2018-12-15 04:00] VITALS: BP 136/68
[2018-12-15] MEDS: NovoLOG Insulin Flexpen SUBQ SCH ×4 (05:08→23:42)
[2018-12-15] MEDS: Nitroglycerin 2% oint pkt TOPIC SCH ×4 (05:08→18:17)
[2018-12-15] MEDS: Renvela 800mg Pkt GT SCH ×3 (05:09→21:38)
[2018-12-15 08:00] VITALS: BP 150/91
--- NOTE | 2018-12-15 09:16 | General Progress Note ---
Assessment/Plan Problem List: (1) Transplant ICD Codes: Z94.9 - Transplanted organ and tissue status, unspecified SNOMED: 557942996 (2) HTN (hypertension) ICD Codes: I10 - Essential (primary) hypertension SNOMED: 50783582 (3) Pacemaker ICD Codes: Z95.0 - Presence of cardiac pacemaker SNOMED: 852177604 (4) CHF (congestive heart failure) ICD Codes: I50.9 - Heart failure, unspecified SNOMED: 36288827 (5) DM (diabetes mellitus) ICD Codes: E11.9 - Type 2 diabetes mellitus without complications SNOMED: 55366011 (6) Foot ulcer ICD Codes: L97.509 - Non-pressure chronic ulcer of other part of unspecified foot with unspecified severity SNOMED: 61463039 Qualifiers: Qualified Codes: L97.511 - Non-pressure chronic ulcer of other part of right foot limited to breakdown of skin (7) ESRD (end stage renal disease) on dialysis ICD Codes: N18.6 - End stage renal disease; Z99.2 - Dependence on renal dialysis SNOMED: 783135278 Assessment/Plan: History of liver transplant, currently on Prograf C. difficile negative status post tracheostomy and PEG Infected G-tube site, fu ID recs would care cx >> GRAM NEGATIVE BACILLUS cont GTFs GT site care BID/prn topical abx around GT site per ID HD per nephro cont tacrolimus prn transfusions ppi zofran prn bowel regimen follow labs supportive care fu swallow eval Subjective ROS Limited/Unobtainable: No Allergies: Coded Allergies: CEPHALEXIN (Unverified Allergy, Unknown, 02/24/14) SULFAMETHOXAZOLE (Unverified Allergy, Unknown, 02/24/14) TRIMETHOPRIM (Unverified Allergy, Unknown, 02/24/14) Subjective he pulled his NGT again Objective Last 24 Hour Vital Signs Date Time Temp Pulse Resp B/P (MAP) Pulse Ox O2 Delivery O2 Flow Rate FiO2 12/15/18 09:13 70 22 40 12/15/18 08:00 Mechanical Ventilator 12/15/18 08:00 40 12/15/18 08:00 97.7 69 22 150/91 (110) 100 12/15/18 06:55 68 21 40 12/15/18 05:08 136/68 12/15/18 05:08 71 24 40 12/15/18 04:12 66 12/15/18 04:00 97.0 76 22 136/68 (90) 98 12/15/18 04:00 40 12/15/18 04:00 Mechanical Ventilator 12/15/18 02:47 67 22 40 12/15/18 01:20 70 20 40 12/15/18 00:00 97.0 70 22 134/80 (98) 98 12/15/18 00:00 Mechanical Ventilator 12/14/18 23:41 69 12/14/18 22:54 68 23 40 12/14/18 21:20 71 26 40 12/14/18 20:43 70 126/72 12/14/18 20:00 97.0 70 24 126/72 (90) 100 12/14/18 20:00 Mechanical Ventilator 12/14/18 20:00 40 12/14/18 19:26 71 12/14/18 19:10 73 28 40 12/14/18 18:00 73 12/14/18 17:50 125/56 12/14/18 17:06 78 26 40 12/14/18 16:00 Mechanical Ventilator 12/14/18 16:00 97.5 74 22 125/56 (79) 100 12/14/18 16:00 40 12/14/18 15:09 74 20 40 12/14/18 13:15 73 24 40 12/14/18 12:00 40 12/14/18 12:00 74 12/14/18 12:00 97.5 75 24 104/71 (82) 98 12/14/18 12:00 Mechanical Ventilator 12/14/18 11:55 117/57 12/14/18 10:36 78 23 40 Intake and Output 12/14/18 12/15/18 18:59 06:59 Intake Total 595 ml 620 ml Output Total 1000 ml Balance -405 ml 620 ml Free Water 100 ml 80 ml Tube Feeding 495 ml 540 ml Hemodialysis UF 1000 ml # Bowel Movements 2 Height (Feet): 5 Height (Inches): 5.00 Weight (Pounds): 222 General Appearance: no apparent distress EENT: normal ENT inspection Neck: supple Cardiovascular: normal rate Respiratory/Chest: decreased breath sounds Abdomen: normal bowel sounds, non tender, soft Extremities: non-tender Jorge Escalera MD Dec 15, 2018 09:16
[2018-12-15] MEDS: Carvedilol 6.25mg Tab PEG SCH ×2 (09:25→20:47)
[2018-12-15] MEDS: Bacitracin Oint UD TOPIC SCH ×2 (09:27→20:47)
[2018-12-15] MEDS: Aspirin Baby 81mg GT SCH (09:27)
--- NOTE | 2018-12-15 11:58 | Nephrology Progress Note ---
Assessment/Plan Problem List: (1) ESRD (end stage renal disease) on dialysis (2) Foot ulcer (3) CHF (congestive heart failure) Assessment: Ej Fx 20 % (4) Pacemaker (5) Acute respiratory failure Assessment: with Co2 retention Assessment ESRD with high K and SOB on admit Foot ulcer, likely infected High Troponin likely NSTMI Pacer , Pleural effusion s/p CABGS s/p Liver transplant Plan doing PT , improving next HD 12/16 GT site infection, topical antibiotic Neuro note appreciated placement in process pain med change to dilaudid GT Now has tracheostomy and PEG Adjust BP meds add nitro paste TID Antibiotics by ID per cardio and ID Podiatry and Vascular surgical fu ? DC planning? ALSO COVERING MEDCINE FOR DR BERG Subjective ROS Limited/Unobtainable: No Objective Objective Last 24 Hour Vital Signs Date Time Temp Pulse Resp B/P (MAP) Pulse Ox O2 Delivery O2 Flow Rate FiO2 12/15/18 11:16 65 22 40 12/15/18 09:25 68 150/91 12/15/18 09:13 70 22 40 12/15/18 08:00 Mechanical Ventilator 12/15/18 08:00 40 12/15/18 08:00 97.7 69 22 150/91 (110) 100 12/15/18 06:55 68 21 40 12/15/18 05:08 136/68 12/15/18 05:08 71 24 40 12/15/18 04:12 66 12/15/18 04:00 97.0 76 22 136/68 (90) 98 12/15/18 04:00 40 12/15/18 04:00 Mechanical Ventilator 12/15/18 02:47 67 22 40 12/15/18 01:20 70 20 40 12/15/18 00:00 97.0 70 22 134/80 (98) 98 12/15/18 00:00 Mechanical Ventilator 12/14/18 23:41 69 12/14/18 22:54 68 23 40 12/14/18 21:20 71 26 40 12/14/18 20:43 70 126/72 12/14/18 20:00 97.0 70 24 126/72 (90) 100 12/14/18 20:00 Mechanical Ventilator 12/14/18 20:00 40 12/14/18 19:26 71 12/14/18 19:10 73 28 40 12/14/18 18:00 73 12/14/18 17:50 125/56 12/14/18 17:06 78 26 40 12/14/18 16:00 Mechanical Ventilator 12/14/18 16:00 97.5 74 22 125/56 (79) 100 12/14/18 16:00 40 12/14/18 15:09 74 20 40 12/14/18 13:15 73 24 40 12/14/18 12:00 40 12/14/18 12:00 74 12/14/18 12:00 97.5 75 24 104/71 (82) 98 12/14/18 12:00 Mechanical Ventilator Intake and Output 12/14/18 12/15/18 18:59 06:59 Intake Total 595 ml 620 ml Output Total 1000 ml Balance -405 ml 620 ml Free Water 100 ml 80 ml Tube Feeding 495 ml 540 ml Hemodialysis UF 1000 ml # Bowel Movements 2 Height (Feet): 5 Height (Inches): 5.00 Weight (Pounds): 222 General Appearance: no apparent distress Cardiovascular: normal rate Respiratory/Chest: decreased breath sounds Abdomen: distended Objective no other change Nakul Stevens MD Dec 15, 2018 11:57
[2018-12-15 12:00] VITALS: BP 133/79
--- NOTE | 2018-12-15 15:29 | Cardiac Electrophysiology PN ---
Assessment/Plan Assessment/Plan 1. Troponin leak due to renal failure. No CP or SOB 2. S/P CABG. On Coreg 6.25 mg bid, aspirin 162 and Lipitor 3. NSVT in setting of old [place] and CABG. EF 55%. No Syncope 4. Congestive heart failure. On hemodialysis 5. S/P R. Medtronic dual chamber pacemaker with Nl Fx. 6. End-stage renal disease, on hemodialysis per Dr. Stevens 7. Right foot ulcer. Antibiotic per Dr. Landis. FU by Dr. Huizar 8. History of liver transplant on Prograf 9. Respiratory failure, S/P tracheostomy. 10. Pleural effusion. FU Dr. Mendoza 11. Dysphagia, S/P PEG Awaiting placement DW RN Subjective Subjective On the vent via tracheostomy. No events.Awaiting placement Objective Last 24 Hour Vital Signs Date Time Temp Pulse Resp B/P (MAP) Pulse Ox O2 Delivery O2 Flow Rate FiO2 12/15/18 15:00 74 22 40 12/15/18 13:27 68 20 40 12/15/18 12:42 133/79 12/15/18 11:16 65 22 40 12/15/18 09:25 68 150/91 12/15/18 09:13 70 22 40 12/15/18 08:00 Mechanical Ventilator 12/15/18 08:00 40 12/15/18 08:00 68 12/15/18 08:00 97.7 69 22 150/91 (110) 100 12/15/18 06:55 68 21 40 12/15/18 05:08 136/68 12/15/18 05:08 71 24 40 12/15/18 04:12 66 12/15/18 04:00 97.0 76 22 136/68 (90) 98 12/15/18 04:00 40 12/15/18 04:00 Mechanical Ventilator 12/15/18 02:47 67 22 40 12/15/18 01:20 70 20 40 12/15/18 00:00 97.0 70 22 134/80 (98) 98 12/15/18 00:00 Mechanical Ventilator 12/14/18 23:41 69 12/14/18 22:54 68 23 40 12/14/18 21:20 71 26 40 12/14/18 20:43 70 126/72 12/14/18 20:00 97.0 70 24 126/72 (90) 100 12/14/18 20:00 Mechanical Ventilator 12/14/18 20:00 40 12/14/18 19:26 71 12/14/18 19:10 73 28 40 12/14/18 18:00 73 12/14/18 17:50 125/56 12/14/18 17:06 78 26 40 12/14/18 16:00 Mechanical Ventilator 12/14/18 16:00 97.5 74 22 125/56 (79) 100 12/14/18 16:00 40 Intake and Output 12/14/18 12/15/18 19:00 07:00 Intake Total 595 ml 575 ml Output Total 1000 ml Balance -405 ml 575 ml Free Water 100 ml 80 ml Tube Feeding 495 ml 495 ml Hemodialysis UF 1000 ml # Bowel Movements 2 Objective HEAD AND NECK: No JVD. Tracheostomy intact LUNGS: Clear CARDIOVASCULAR: Irregular S1 and S2 with no gallop. Sternotomy is intact Pacemaker in the right subclavian ABDOMEN: Soft.PEG in place EXTREMITIES: 1+ pitting edema Shivam Sharpe MD Dec 15, 2018 15:29
[2018-12-15] MEDS: Albuterol/Ipratropium 3ml neb HHN SCH ×2 (15:37→21:13)
[2018-12-15 16:00] VITALS: BP 122/79
--- NOTE | 2018-12-15 17:03 | Anethesia Preoperative Eval ---
Anesthesia Pre-op PMH/ROS General Date of Evaluation: Dec 15, 2018 Time of Evaluation: 16:59 Anesthesiologist: Guille ASA Score: ASA 4 Mallampati Score Class I : Soft palate, uvula, fauces, pillars visible Class II: Soft palate, uvula, fauces visible Class III: Soft palate, base of uvula visible Class IV: Only hard plate visible Mallampati Classification: Class III Surgeon: Faviola Diagnosis: PVD Surgical Procedure: Angiogram Anesthesia History: none Family History: no anesthesia problems Allergies: Coded Allergies: CEPHALEXIN (Unverified Allergy, Unknown, 02/24/14) SULFAMETHOXAZOLE (Unverified Allergy, Unknown, 02/24/14) TRIMETHOPRIM (Unverified Allergy, Unknown, 02/24/14) Medications: see eMAR Patient NPO?: Yes NPO Date: Nov 16, 2018 NPO Time: 22:00 Past Medical History Cardiovascular: Reports: HTN, CAD, [place], arrhythmia - Pacer in place, other - CHF Pulmonary: Reports: other - pneumonia, pleural effusion; Denies: asthma, COPD, CHRISTINA Gastrointestinal/Genitourinary: Reports: GERD, ESRD - on HD; Denies: CRI, other 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: Reports: dementia, depression/anxiety; Denies: CVA, TIA, other Endocrine: Reports: DM, hypothyroidism; Denies: steroids, other HEENT: Denies: cataract (L), cataract (R), glaucoma, WILTON (L), WILTON (R), other Hematology/Immune: Reports: anemia Musculoskeletal/Integumentary: Reports: DJD; Denies: OA, RA, DDD, edema, other Other: obesity - morbid obesity PMH Narrative: as above PSxH Narrative: See H&P Anesthesia Pre-op Phys. Exam Physician Exam Last Vital Signs Date Time Temp Pulse Resp B/P (MAP) Pulse Ox O2 Delivery O2 Flow Rate FiO2 12/15/18 15:00 74 22 40 12/15/18 15:00 100 Mechanical Ventilator 12/15/18 12:42 133/79 12/15/18 12:00 97.2 Constitutional: NAD Neurologic: other - unable to obtaine Cardiovascular: RRR Respiratory: other - diminished breath sounds bilaterally Airway Exam Mallampati Score: Class III MO: limited Neck: tracheostomy in place ROM: limited Teeth: missing Dentures: no upper, no lower Anesthesia Pre-op A/P Risk Assessment & Plan Assessment: ASA 4 Plan: GA Airways - trach. Derik Han MD Dec 15, 2018 17:03
--- NOTE | 2018-12-15 17:52 | General Progress Note ---
Assessment/Plan Assessment/Plan: Assessment and Recs: # Coagulopathy likely secondary to decreased Vitk dependent cofactors (high INR , PT) --> monitor closely for any evidence of bleeding --> hold off on mixing study at this time unless severe changes noted --> VIT K on prn basis sq can be administered ==> recently has improved inr 1.2-->1.1 # Anemia of chronic disease due to underlying chronic medical issues, multifactorial as well as kidney disease --> Anemia workup has been ordered, rule out gi bleed, seen by gi, also reviewed w/u --> HAS BEEN reordered since refusing --> No evidence of hemolysis is noted, peripheral smear has been reviewed. --> Epogen can be consider if hgb downtrends --> Medications have been reviewed --> evaluate with Gi team prn --> transfuse if hgb is < 7 (will trend CBC daily) ==> hgb trend 11.2-->10.9-->10.8-->10.7-->10.2 # Failure to thrive is likely related to poor overall status, poor functional status --> with multiple decub ulcerations that are noted, seen by id/surgery --> s/p trach as well --> cea is wnl # Acute respiratory failure is now s/p trach to vent --> as per surgery recs # Ground glass opacity present on imaging of lung --> with pleural effusions, s/p drainage at this time --> no evidence for malignancy is noted # Pleural effusion --> s/p thoracentesis # Hyperkalemia --> kayxelate has been given # Renal failure --> per renal recs, appreciated --> getting hd as per schedule # Altered level of consciousness ==> currently as per baseline The timing of this note does not necessarily reflect the time of the patient was seen. Greatly appreciate consultation! Subjective Constitutional: Denies: no symptoms, chills, diaphoresis, fever, malaise, weakness, other HEENT: Denies: no symptoms, eye pain, blurred vision, tearing, double vision, ear pain, ear discharge, nose pain, nose congestion, throat pain, throat swelling, mouth pain, mouth swelling, other Cardiovascular: Denies: no symptoms, chest pain, edema, irregular heart rate, lightheadedness, palpitations, syncope, other Respiratory: Denies: no symptoms, cough, orthopnea, shortness of breath, SOB with excertion, SOB at rest, sputum, stridor, wheezing, other Endocrine: Denies: no symptoms, excessive sweating, flushing, intolerance to cold, intolerance to heat, increased hunger, increased thirst, increased urine, unexplained weight gain, unexplained weight loss, other Hematologic/Lymphatic: Denies: no symptoms, anemia, easy bleeding, easy bruising, other Allergies: Coded Allergies: CEPHALEXIN (Unverified Allergy, Unknown, 02/24/14) SULFAMETHOXAZOLE (Unverified Allergy, Unknown, 02/24/14) TRIMETHOPRIM (Unverified Allergy, Unknown, 02/24/14) Subjective 11/30: comfortable, on abx, no complaints, on t-piece 12/01: to have hd done potentially tomorrow, is more alert/awake 12/02: no major bleeding, hgb remains approx 11, no changes 12/03: no events, breathing mildly better, hgb is improved 12/04: on vent/trach, no major changes, sr ekg 12/10: small amount of secretions, on trach/vent, no issues otherwise 12/11: no major issues, no complaints, labs reviewed, no sig changes 12/13: no events to report, no fevers or chills, awaiting placement 12/14: no changes, no major events to report, no fevers or chills 12/15: pending placement, getting gt feeds and hd as per renal Objective Last 24 Hour Vital Signs Date Time Temp Pulse Resp B/P (MAP) Pulse Ox O2 Delivery O2 Flow Rate FiO2 12/15/18 17:14 72 20 40 12/15/18 15:00 74 22 40 12/15/18 15:00 88 24 100 Mechanical Ventilator 40 12/15/18 14:50 78 22 100 Mechanical Ventilator 40 12/15/18 13:30 99 12/15/18 13:27 68 20 40 12/15/18 12:42 133/79 12/15/18 12:00 40 12/15/18 12:00 68 12/15/18 12:00 Mechanical Ventilator 12/15/18 12:00 97.2 67 22 133/79 (97) 100 12/15/18 11:16 65 22 40 12/15/18 09:25 68 150/91 12/15/18 09:13 70 22 40 12/15/18 08:00 Mechanical Ventilator 12/15/18 08:00 40 12/15/18 08:00 68 12/15/18 08:00 97.7 69 22 150/91 (110) 100 12/15/18 06:55 68 21 40 12/15/18 05:08 136/68 12/15/18 05:08 71 24 40 12/15/18 04:12 66 12/15/18 04:00 97.0 76 22 136/68 (90) 98 12/15/18 04:00 40 12/15/18 04:00 Mechanical Ventilator 12/15/18 02:47 67 22 40 12/15/18 01:20 70 20 40 12/15/18 00:00 97.0 70 22 134/80 (98) 98 12/15/18 00:00 Mechanical Ventilator 12/14/18 23:41 69 12/14/18 22:54 68 23 40 12/14/18 21:20 71 26 40 12/14/18 20:43 70 126/72 12/14/18 20:00 97.0 70 24 126/72 (90) 100 12/14/18 20:00 Mechanical Ventilator 12/14/18 20:00 40 12/14/18 19:26 71 12/14/18 19:10 73 28 40 12/14/18 18:00 73 Intake and Output 12/14/18 12/15/18 19:00 07:00 Intake Total 595 ml 620 ml Output Total 1000 ml Balance -405 ml 620 ml Free Water 100 ml 80 ml Tube Feeding 495 ml 540 ml Hemodialysis UF 1000 ml # Bowel Movements 2 Height (Feet): 5 Height (Inches): 5.00 Weight (Pounds): 222 Objective PE General Appearance: mild distress, moderate distress Lines, tubes and drains: peripheral HEENT: EOMI, thrush, tonsils swollen ++trach Neck: normal inspection Respiratory/Chest: decreased breath sounds, accessory muscle use Cardiovascular/Chest: tachycardia Abdomen: soft, no organomegaly, no mass, ++ peg Extremities: other Skin Exam: warm/dry, rash Neurologic: alert, responsive Zacarias Khoury MD Dec 15, 2018 17:52
--- NOTE | 2018-12-15 18:37 | Infectious Diseases Prog Note ---
Assessment/Plan Problems: (1) G-tube site cellulitis Assessment & Plan: culture from the G tube site grew pseudomonas , continue ciprofloxacin for 7 days , continue local care and antibiotics as per GI (2) Thrush, oral Assessment & Plan: continue local nystatin , S/P micafungin for three weeks empirically (3) HCV antibody positive Assessment & Plan: no evidence of active infection, with undetectable viral load , suspect due to previous infection , cleared, S/P liver transplant . (4) Foot ulcer Assessment & Plan: in diabetic patient , with MRSA , S/P vancomycin treatment with HD for two weeks , recommend vascular eval . bone scan ruled out osteomyelitis of the heel . follow up with buckle strap puncher (5) DM (diabetes mellitus) Assessment & Plan: recommend tight glycemic control to keep blood glucose between 100-140 (6) CHF (congestive heart failure) Assessment & Plan: on HD , renal is following, monitor daily weight (7) Severe tongue swelling Assessment & Plan: improving , s/p tracheostomy to protect his airway since respiratory status worsened . now improving, pulmonary is following (8) Pleural effusion Assessment & Plan: recurrent on the right, with lung collapse , S/P thoracentesis X2 with removal of 1.5 cc of clear fluids. PREVIOUS culture were negative with negative cytology Subjective Constitutional: Reports: no symptoms HEENT: Reports: no symptoms Respiratory: Reports: no symptoms Breasts: Reports: no symptoms Cardiovascular: Reports: no symptoms Gastrointestinal/Abdominal: Reports: no symptoms Genitourinary: Reports: no symptoms Neurologic: Reports: no symptoms Psychiatric: Reports: no symptoms Skin: Reports: no symptoms Endocrine: Reports: no symptoms Hematologic: Reports: no symptoms Musculoskeletal: Reports: no symptoms Allergies: Coded Allergies: CEPHALEXIN (Unverified Allergy, Unknown, 02/24/14) SULFAMETHOXAZOLE (Unverified Allergy, Unknown, 02/24/14) TRIMETHOPRIM (Unverified Allergy, Unknown, 02/24/14) Subjective he was comfortable, lying in bed, no tongue swelling , awake and responsive, no fever or chills, no significant secretions , no SOB . has less thrush on his tongue Objective Vital Signs Last 24 Hour Vital Signs Date Time Temp Pulse Resp B/P (MAP) Pulse Ox O2 Delivery O2 Flow Rate FiO2 12/15/18 18:00 122/75 12/15/18 17:14 72 20 40 12/15/18 15:00 74 22 40 12/15/18 15:00 88 24 100 Mechanical Ventilator 40 12/15/18 14:50 78 22 100 Mechanical Ventilator 40 12/15/18 13:30 99 12/15/18 13:27 68 20 40 12/15/18 12:42 133/79 12/15/18 12:00 40 12/15/18 12:00 68 12/15/18 12:00 Mechanical Ventilator 12/15/18 12:00 97.2 67 22 133/79 (97) 100 12/15/18 11:16 65 22 40 12/15/18 09:25 68 150/91 12/15/18 09:13 70 22 40 12/15/18 08:00 Mechanical Ventilator 12/15/18 08:00 40 12/15/18 08:00 68 12/15/18 08:00 97.7 69 22 150/91 (110) 100 12/15/18 06:55 68 21 40 12/15/18 05:08 136/68 12/15/18 05:08 71 24 40 12/15/18 04:12 66 12/15/18 04:00 97.0 76 22 136/68 (90) 98 12/15/18 04:00 40 12/15/18 04:00 Mechanical Ventilator 12/15/18 02:47 67 22 40 12/15/18 01:20 70 20 40 12/15/18 00:00 97.0 70 22 134/80 (98) 98 12/15/18 00:00 Mechanical Ventilator 12/14/18 23:41 69 12/14/18 22:54 68 23 40 12/14/18 21:20 71 26 40 12/14/18 20:43 70 126/72 12/14/18 20:00 97.0 70 24 126/72 (90) 100 12/14/18 20:00 Mechanical Ventilator 12/14/18 20:00 40 12/14/18 19:26 71 12/14/18 19:10 73 28 40 Height (Feet): 5 Height (Inches): 5.00 Weight (Pounds): 222 General Appearance: WD/WN, no acute distress HEENT: normocephalic, atraumatic, anicteric, mucous membranes moist, PERRL, pharynx normal, supple, no JVD, status post trach Respiratory/Chest: chest wall non-tender, lungs clear, normal breath sounds, no respiratory distress, no accessory muscle use Cardiovascular: normal peripheral pulses, normal rate, regular rhythm, no gallop/murmur, no JVD Abdomen: normal bowel sounds, soft, non tender, no organomegaly, non distended , no mass, no scars, other - g ube site is ok with no skin irritation or draining Genitourinary: normal external genitalia Extremities: no cyanosis, no clubbing Skin: no rash, no lesions, ulcers 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, no motor/sensory deficits, alert, responsive Lymphatic: no neck adenopathy, no groin adenopathy Musculoskeletal: normal muscle bulk, no effusion Current Medications Medications (Trade) Dose Ordered Sig/Aleks Route PRN Reason Start Time Stop Time Status Last Admin Dose Admin Albuterol/ Ipratropium (Albuterol/ Ipratropium) 3 ml QID HHN 12/15/18 14:45 12/20/18 14:44 12/15/18 15:37 Aspirin (ASA) 162 mg DAILY GT 12/08/18 09:00 12/20/18 08:59 12/15/18 09:27 Atorvastatin Calcium (Lipitor) 10 mg BEDTIME NG 12/01/18 21:00 12/21/18 20:59 12/14/18 20:43 Bacitracin (Bacitracin) 1 applic EVERY 12 HOURS TOPIC 12/11/18 21:00 01/06/19 17:59 12/15/18 09:27 Carvedilol (Coreg) 6.25 mg EVERY 12 HOURS PEG 12/06/18 21:00 01/03/19 20:59 12/15/18 09:25 Ciprofloxacin (Cipro 500mg tab) 500 mg Q24H ORAL 12/10/18 21:00 12/17/18 20:59 12/14/18 20:44 Clotrimazole (Lotrimin) 1 applic BID TOPIC 12/07/18 18:00 01/06/19 17:59 12/15/18 18:14 Dextrose (Dextrose 50%) 25 ml Q30M PRN IV Hypoglycemia 12/01/18 19:30 12/31/18 19:29 Dextrose (Dextrose 50%) 50 ml Q30M PRN IV Hypoglycemia 12/01/18 19:30 12/31/18 19:29 Docusate Sodium (Colace) 100 mg EVERY 8 HOURS PRN GT constipation 11/24/18 18:51 12/20/18 18:50 Escitalopram Oxalate (Lexapro) 10 mg DAILY ORAL 12/14/18 12:45 01/13/19 12:44 12/15/18 09:26 Hydralazine HCl (Apresoline) 10 mg Q6H PRN GT For High Blood Pressure 12/03/18 16:45 01/02/19 16:44 12/07/18 04:47 Hydromorphone HCl (Dilaudid) 1 mg Q4H PRN GT For Pain 12/14/18 15:30 12/21/18 15:29 Insulin Aspart (NovoLOG) EVERY 6 HOURS SUBQ 12/02/18 00:00 12/31/18 20:59 12/15/18 18:19 Lactulose (Cephulac) 20 gm THREE TIMES A DAY PRN GT Constipation 11/24/18 18:51 12/23/18 18:50 Lansoprazole (Prevacid) 30 mg BID GT 11/20/18 09:00 12/20/18 08:59 12/15/18 18:14 Mirtazapine (Remeron) 7.5 mg BEDTIME GT 12/14/18 21:00 01/13/19 20:59 12/14/18 20:42 Nicotine (Nicoderm) 1 patch Q24H TDERMAL 12/01/18 22:15 12/21/18 22:14 12/14/18 21:26 Nitroglycerin (Nitro-Bid) 1 inch TID@0600,1200,1800 TOPIC 12/07/18 12:00 01/06/19 11:59 12/15/18 12:42 Olanzapine (ZyPREXA) 2.5 mg Q6H PRN ORAL agitation 11/15/18 23:00 12/15/18 22:59 12/06/18 00:23 Sevelamer Carbonate (Renvela) 800 mg Q8HR GT 11/20/18 14:00 12/20/18 13:59 12/15/18 14:19 Tacrolimus (Prograf) 2 mg MoWeFr@0000,1200 ORAL 12/07/18 00:00 12/21/18 00:00 12/14/18 11:55 Tacrolimus (Prograf) 2 mg Johnny@0900,2100 ORAL 12/05/18 21:00 01/04/19 20:59 12/15/18 09:30 Francois Landis M.D. Dec 15, 2018 18:37
[2018-12-15 20:00] VITALS: BP 138/73
[2018-12-15] MEDS: Ciprofloxacin 500mg tab ORAL SCH (20:46)
--- NOTE | 2018-12-15 22:19 | Psych Consult Progress Note ---
Psychiatry Progress Note Psychiatry Progress Note Subjective the pt is the same cognition is improved able to process info Medications Current Medications Medications (Trade) Dose Ordered Sig/Aleks Route PRN Reason Start Time Stop Time Status Last Admin Dose Admin Albuterol/ Ipratropium (Albuterol/ Ipratropium) 3 ml QID HHN 12/15/18 14:45 12/20/18 14:44 12/15/18 21:13 Aspirin (ASA) 162 mg DAILY GT 12/08/18 09:00 12/20/18 08:59 12/15/18 09:27 Atorvastatin Calcium (Lipitor) 10 mg BEDTIME NG 12/01/18 21:00 12/21/18 20:59 12/15/18 20:47 Bacitracin (Bacitracin) 1 applic EVERY 12 HOURS TOPIC 12/11/18 21:00 01/06/19 17:59 12/15/18 20:47 Carvedilol (Coreg) 6.25 mg EVERY 12 HOURS PEG 12/06/18 21:00 01/03/19 20:59 12/15/18 20:47 Ciprofloxacin (Cipro 500mg tab) 500 mg Q24H ORAL 12/10/18 21:00 12/17/18 20:59 12/15/18 20:46 Clotrimazole (Lotrimin) 1 applic BID TOPIC 12/07/18 18:00 01/06/19 17:59 12/15/18 18:14 Dextrose (Dextrose 50%) 25 ml Q30M PRN IV Hypoglycemia 12/01/18 19:30 12/31/18 19:29 Dextrose (Dextrose 50%) 50 ml Q30M PRN IV Hypoglycemia 12/01/18 19:30 12/31/18 19:29 Docusate Sodium (Colace) 100 mg EVERY 8 HOURS PRN GT constipation 11/24/18 18:51 12/20/18 18:50 Escitalopram Oxalate (Lexapro) 10 mg DAILY ORAL 12/14/18 12:45 01/13/19 12:44 12/15/18 09:26 Hydralazine HCl (Apresoline) 10 mg Q6H PRN GT For High Blood Pressure 12/03/18 16:45 01/02/19 16:44 12/07/18 04:47 Hydromorphone HCl (Dilaudid) 1 mg Q4H PRN GT For Pain 12/14/18 15:30 12/21/18 15:29 Insulin Aspart (NovoLOG) EVERY 6 HOURS SUBQ 12/02/18 00:00 12/31/18 20:59 12/15/18 18:19 Lactulose (Cephulac) 20 gm THREE TIMES A DAY PRN GT Constipation 11/24/18 18:51 12/23/18 18:50 Lansoprazole (Prevacid) 30 mg BID GT 11/20/18 09:00 12/20/18 08:59 12/15/18 18:14 Mirtazapine (Remeron) 7.5 mg BEDTIME GT 12/14/18 21:00 01/13/19 20:59 12/15/18 20:47 Nicotine (Nicoderm) 1 patch Q24H TDERMAL 12/01/18 22:15 12/21/18 22:14 12/15/18 21:38 Nitroglycerin (Nitro-Bid) 1 inch TID@0600,1200,1800 TOPIC 12/07/18 12:00 01/06/19 11:59 12/15/18 12:42 Olanzapine (ZyPREXA) 2.5 mg Q6H PRN ORAL agitation 11/15/18 23:00 12/15/18 22:59 12/06/18 00:23 Sevelamer Carbonate (Renvela) 800 mg Q8HR GT 11/20/18 14:00 12/20/18 13:59 12/15/18 21:38 Tacrolimus (Prograf) 2 mg MoWeFr@0000,1200 ORAL 12/07/18 00:00 12/21/18 00:00 12/14/18 11:55 Tacrolimus (Prograf) 2 mg SuTuThSa@0900,2100 ORAL 12/05/18 21:00 01/04/19 20:59 12/15/18 20:47 Neurological/Psychiatric: Reports: anxiety, depressed, emotional problems Allergies: Coded Allergies: CEPHALEXIN (Unverified Allergy, Unknown, 02/24/14) SULFAMETHOXAZOLE (Unverified Allergy, Unknown, 02/24/14) TRIMETHOPRIM (Unverified Allergy, Unknown, 02/24/14) Objective Data Height (Feet): 5 Height (Inches): 5.00 Weight (Pounds): 222 General Appearance: WD/WN, no apparent distress, alert, alert oriented x3 Appearance: no abnormalities noted Behavior Mannerisms: good eye contact Mental Status Exam - Affect: blunted Mental Status Exam - Mood: anxious Mental Status Exam - Thought P: logical, goal-directed Mental Status Exam - Suicidal: not present Assessment/Plan Problem List: (1) Encephalopathy acute ICD Codes: G93.40 - Encephalopathy, unspecified SNOMED: 83159879, [id number] Status: stable Assessment/Plan: dc Zyprexa 2.5mg po qhs lexapro 10mg po qam remeron 7.5mg po qhs the pt has capacity to make decisions. Jeffrey Lala MD Dec 15, 2018 22:19
--- NOTE | 2018-12-15 23:29 | Neurology Progress Note ---
Interim History Interim History Interim History Mr. Restrepo feels well. He is breathing well. He weaned for about 1 hour today. He feels stronger. His right foot is less painful. The mind has been clearer. He sat at the edge of his bed and stood for a few seconds today. He has not walked yet. The right upper extremity is less swollen and less painful. He denies any new neurologic symptoms. Review of Systems Neuro Review of Systems Benign. Objective Physical Exam Last Vital Signs Date Time Temp Pulse Resp B/P (MAP) Pulse Ox O2 Delivery O2 Flow Rate FiO2 12/15/18 23:16 67 22 40 12/15/18 21:30 99 Mechanical Ventilator 12/15/18 20:47 138/73 12/15/18 20:00 97.3 Neurologic Exam Objective PHYSICAL EXAMINATION: GENERAL: He is a well-developed and well-nourished, pleasant gentleman, lying in bed connected to a ventilator via tracheostomy. HEAD: Normocephalic and atraumatic. EENT: Examination benign. NECK: No neck rigidity was observed. He did have a tracheostomy. NEUROLOGICAL EXAMINATION: MENTAL STATUS EXAMINATION: He was awake and alert. He was oriented to person, place, and time. He was able to recall 3/3 words immediately, after 1 minute, and after 3 minutes. He was able to remember president Trskyler through [employer]. His mathematical skills were minimally impaired. His visuospatial function was preserved. SPEECH: Could not be tested, but he was able to mouth words relatively well. LANGUAGE: He was able to comprehend and express himself relatively well using his communication board. CRANIAL NERVES EXAMINATION: II: The visual mckeon were intact to confrontation testing. III, IV & : The external ocular movements were full and the pupils 3 mm in diameter, equal, round, regular, and reactive sluggishly to light. V: He had normal facial sensations, and the temporales, masseters, and pterygoids functioned normally. VII: He had normal facial expressions and no facial asymmetry. VIII: Hearing was decreased bilaterally with worse hearing on the left side compared to the right. IX: The palate moved symmetrically on phonation. X: Could not be tested. XI: The sternocleidomastoids and trapezii functioned normally. XII: The tongue was in the midline without any fasciculations or atrophy. MOTOR SYSTEM: The tone was normal in all four extremities. Examination of muscle mass revealed generalized muscle wasting. Examination of power revealed G 5/5 power except for G 4+/5 power in the iliopsoas muscles bilaterally. SENSORY EXAMINATION: He had intact sensations to light touch. Other sensory modalities could not be tested adequately. REFLEXES: 1+ and bilaterally symmetrical at the biceps, triceps, brachioradialis , and knees, 0 at both ankles. The plantar responses were flexor bilaterally. COORDINATION: He performed well on [id number] testing. STANCE & GAIT: Were deferred. Impression/Recommendations Diagnostic Impression 1. Mr. Gregg Restrepo is a 68-year-old, right-handed, gentleman with past history of multiple medical problems including hypertension, diabetes mellitus, end-stage renal disease for which he is hemodialysis dependent, prior episodes of sepsis, and prior episodes of encephalopathy, who was admitted to [facility] on October 31, 2018. Following that, he has had a stormy hospital course including pneumonia and sepsis, right foot infection, respiratory failure for which he has needed tracheostomy and in addition he has exhibited an alteration in his mental state with some waxing and waning of his mental state. 2. He feels well. He is breathing well. He weaned for about 1 hour today. He feels stronger. His right foot is less painful. The mind has been clearer. He sat at the edge of his bed and stood for a few seconds today. He has not walked yet. The right upper extremity is less swollen and less painful. He denies any new neurologic symptoms. 3. On neurological examination, at this time, he is fully oriented, has mild problems with recent and remote memory, normal visuospatial function, minimally impaired higher cognitive function. He is able to comprehend and express himself well. He does have mild G 4+/5 weakness in the iliopsoas muscles bilaterally, globally diminished deep tendon reflexes with loss of ankle jerks, but no definite focal or lateralizing neurological findings. 4. His latest laboratory data on my initial evaluation revealed that he was anemic with a hemoglobin of 10.8 G. His last blood gas performed on 11/14/2018 revealed that he had a pCO2 elevated at 56.4 with a normal pO2 of 88.3 and normal pH of 7.37. His latest chemistry panel revealed that he was mildly hyponatremic with a sodium of 130, and had a chloride of 90. The BUN was elevated at 75, creatinine elevated at 7.4, glucose elevated at 156, Hemoglobin A1c elevated at 6.9%, Alkaline phosphatase elevated at 131, and ProBNP greater than 35,000. His last B12 level on 11/07/2018 was 723. His last folate on was 18.6. His last TSH on 12/06/2018 was 4.82, which is minimally elevated. 5. The CT scan of the brain performed on 11/10/2018 was benign for acute intracranial pathology. 6. The EEG done on 12/08/18 revealed left temporal dysfunction. 7. The patient's history and neurological examination are most consistent with mild multifactorial encephalopathy, which apparently waxes and wanes, but no definite focal neurological dysfunction. His encephalopathy is stable today. 8. He tells me that he had a brain bleed many years ago. I did review his imaging done at [facility] a few years ago and he had closed head injuries with subarachnoid and subdural blood in the past. 9. He is worried about his hearing getting worse. Recommendations 1. Continue present management. 2. Continue to correct the patient's toxic metabolic imbalances. 3. Mobilize with PT/OT. 4. Consider getting ENT evaluation for worsening hearing. 5. Observe closely. Pantera Cool M.D., M.S.P.H. Pantera Cool MD Dec 15, 2018 23:29
[2018-12-15] MEDS: HYDROmorphone 2mg tab GT PRN (23:41)
[2018-12-16] VITALS (12 sets, daily range): BP systolic 94–154; BP diastolic 41–88
[2018-12-16] MEDS: HYDROmorphone 2mg tab GT PRN ×3 (04:11→21:10)
[2018-12-16] MEDS: NovoLOG Insulin Flexpen SUBQ SCH ×3 (05:12→17:44)
[2018-12-16] MEDS: Nitroglycerin 2% oint pkt TOPIC SCH ×3 (05:12→17:44)
[2018-12-16] MEDS: Renvela 800mg Pkt GT SCH ×3 (05:12→21:11)
--- NOTE | 2018-12-16 07:18 | Cardiac Electrophysiology PN ---
Assessment/Plan Assessment/Plan 1. Troponin leak due to renal failure. No CP or SOB 2. S/P CABG. On Coreg 6.25 mg bid, aspirin 162 and Lipitor 3. NSVT in setting of old IN and CABG. EF 55%. No Syncope 4. Congestive heart failure. On hemodialysis 5. S/P R. Medtronic dual chamber pacemaker with Nl Fx. 6. End-stage renal disease, on hemodialysis per Dr. Stevens Vascular access by Dr Salmeron . 7. Multilevel AOD LE's with non-healing Right foot ulcer. Abdominal Angiogram today per Dr Salmeron Antibiotic per Dr. Landis. FU by Dr. Huizar 8. History of liver transplant on Prograf 9. Respiratory failure, S/P tracheostomy. 10. Pleural effusion. FU Dr. Mendzoa 11. Dysphagia, S/P PEG DW RN Subjective Subjective On the vent via tracheostomy. Dr. Salmeron ordered abdominal aortogram for leg pain. HD pending today Objective Last 24 Hour Vital Signs Date Time Temp Pulse Resp B/P (MAP) Pulse Ox O2 Delivery O2 Flow Rate FiO2 12/16/18 05:24 68 23 40 12/16/18 05:12 140/66 12/16/18 04:00 Mechanical Ventilator 12/16/18 04:00 40 12/16/18 04:00 97.3 68 24 134/67 (89) 98 12/16/18 03:33 68 12/16/18 02:34 67 22 40 12/16/18 01:08 68 25 40 12/16/18 00:00 97.2 68 23 140/88 (105) 99 12/16/18 00:00 Mechanical Ventilator 12/15/18 23:32 67 12/15/18 23:16 67 22 40 12/15/18 21:30 72 23 99 Mechanical Ventilator 40 12/15/18 21:14 69 23 99 Mechanical Ventilator 40 12/15/18 21:13 69 24 40 12/15/18 20:47 70 138/73 12/15/18 20:00 97.3 70 24 138/73 (94) 99 12/15/18 20:00 Mechanical Ventilator 12/15/18 20:00 40 12/15/18 19:19 70 23 40 12/15/18 19:12 70 12/15/18 18:00 122/75 12/15/18 17:14 72 20 40 12/15/18 16:00 40 12/15/18 16:00 Mechanical Ventilator 12/15/18 16:00 22 122/79 (93) 100 12/15/18 16:00 66 12/15/18 15:00 74 22 40 12/15/18 15:00 88 24 100 Mechanical Ventilator 40 12/15/18 14:50 78 22 100 Mechanical Ventilator 40 12/15/18 13:30 99 12/15/18 13:27 68 20 40 12/15/18 12:42 133/79 12/15/18 12:00 40 12/15/18 12:00 68 12/15/18 12:00 Mechanical Ventilator 12/15/18 12:00 97.2 67 22 133/79 (97) 100 12/15/18 11:16 65 22 40 12/15/18 09:25 68 150/91 12/15/18 09:13 70 22 40 12/15/18 08:00 Mechanical Ventilator 12/15/18 08:00 40 12/15/18 08:00 68 12/15/18 08:00 97.7 69 22 150/91 (110) 100 Intake and Output 12/15/18 12/16/18 19:00 07:00 Intake Total 790 ml 110 ml Balance 790 ml 110 ml Free Water 250 ml 65 ml Tube Feeding 540 ml 45 ml # Bowel Movements 1 Objective HEAD AND NECK: No JVD. Tracheostomy intact LUNGS: Clear CARDIOVASCULAR: Irregular S1 and S2 with no gallop. Sternotomy is intact Pacemaker in the right subclavian ABDOMEN: Soft.PEG in place EXTREMITIES: 1+ pitting edema Shivam Sharpe MD December 16, 2018 07:18
[2018-12-16] MEDS: Albuterol/Ipratropium 3ml neb HHN SCH ×2 (08:33→12:06)
--- NOTE | 2018-12-16 08:43 | General Progress Note ---
Assessment/Plan Problem List: (1) Transplant ICD Codes: Z94.9 - Transplanted organ and tissue status, unspecified SNOMED: 770947439 (2) HTN (hypertension) ICD Codes: I10 - Essential (primary) hypertension SNOMED: 79508641 (3) Pacemaker ICD Codes: Z95.0 - Presence of cardiac pacemaker SNOMED: 521846124 (4) CHF (congestive heart failure) ICD Codes: I50.9 - Heart failure, unspecified SNOMED: 71736385 (5) DM (diabetes mellitus) ICD Codes: E11.9 - Type 2 diabetes mellitus without complications SNOMED: 72409522 (6) Foot ulcer ICD Codes: L97.509 - Non-pressure chronic ulcer of other part of unspecified foot with unspecified severity SNOMED: 44635907 Qualifiers: Qualified Codes: L97.511 - Non-pressure chronic ulcer of other part of right foot limited to breakdown of skin (7) ESRD (end stage renal disease) on dialysis ICD Codes: N18.6 - End stage renal disease; Z99.2 - Dependence on renal dialysis SNOMED: 435877220 Assessment/Plan: History of liver transplant, currently on Prograf C. difficile negative status post tracheostomy and PEG Infected G-tube site, fu ID recs would care cx >> GRAM NEGATIVE BACILLUS GT site care BID/prn topical abx around GT site per ID HD per nephro cont tacrolimus prn transfusions ppi zofran prn bowel regimen follow labs supportive care pending arteriogram today per Dr Salmeron for leg pain evaluation Subjective ROS Limited/Unobtainable: No Allergies: Coded Allergies: CEPHALEXIN (Unverified Allergy, Unknown, 02/24/14) SULFAMETHOXAZOLE (Unverified Allergy, Unknown, 02/24/14) TRIMETHOPRIM (Unverified Allergy, Unknown, 02/24/14) Subjective he pulled his NGT again Objective Last 24 Hour Vital Signs Date Time Temp Pulse Resp B/P (MAP) Pulse Ox O2 Delivery O2 Flow Rate FiO2 12/16/18 08:33 64 25 97 Mechanical Ventilator 35 12/16/18 06:36 66 22 35 12/16/18 05:24 68 23 40 12/16/18 05:12 140/66 12/16/18 04:00 Mechanical Ventilator 12/16/18 04:00 40 12/16/18 04:00 97.3 68 24 134/67 (89) 98 12/16/18 03:33 68 12/16/18 02:34 67 22 40 12/16/18 01:08 68 25 40 12/16/18 00:00 97.2 68 23 140/88 (105) 99 12/16/18 00:00 Mechanical Ventilator 12/15/18 23:32 67 12/15/18 23:16 67 22 40 12/15/18 21:30 72 23 99 Mechanical Ventilator 40 12/15/18 21:14 69 23 99 Mechanical Ventilator 40 12/15/18 21:13 69 24 40 12/15/18 20:47 70 138/73 12/15/18 20:00 97.3 70 24 138/73 (94) 99 12/15/18 20:00 Mechanical Ventilator 12/15/18 20:00 40 12/15/18 19:19 70 23 40 12/15/18 19:12 70 12/15/18 18:00 122/75 12/15/18 17:14 72 20 40 12/15/18 16:00 40 12/15/18 16:00 Mechanical Ventilator 12/15/18 16:00 22 122/79 (93) 100 12/15/18 16:00 66 12/15/18 15:00 74 22 40 12/15/18 15:00 88 24 100 Mechanical Ventilator 40 12/15/18 14:50 78 22 100 Mechanical Ventilator 40 12/15/18 13:30 99 12/15/18 13:27 68 20 40 12/15/18 12:42 133/79 12/15/18 12:00 40 12/15/18 12:00 68 12/15/18 12:00 Mechanical Ventilator 12/15/18 12:00 97.2 67 22 133/79 (97) 100 12/15/18 11:16 65 22 40 12/15/18 09:25 68 150/91 12/15/18 09:13 70 22 40 Intake and Output 12/15/18 12/16/18 18:59 06:59 Intake Total 790 ml 155 ml Balance 790 ml 155 ml Free Water 250 ml 65 ml Tube Feeding 540 ml 90 ml # Bowel Movements 1 Height (Feet): 5 Height (Inches): 5.00 Weight (Pounds): 223 General Appearance: alert EENT: normal ENT inspection Neck: supple Cardiovascular: normal rate Respiratory/Chest: decreased breath sounds Abdomen: normal bowel sounds, non tender, soft Extremities: non-tender Jorge Escalera MD December 16, 2018 08:42
[2018-12-16] MEDS ORDERED: Midazolam 2mg/2ml Inj ONE (08:58)
[2018-12-16] MEDS ORDERED: Ketamine 500mg Inj ONE (08:58)
[2018-12-16] MEDS: Bacitracin Oint UD TOPIC SCH ×2 (09:00→21:10)
[2018-12-16] MEDS: Aspirin Baby 81mg GT SCH (09:00)
[2018-12-16] MEDS: Carvedilol 6.25mg Tab PEG SCH ×2 (09:00→21:00)
[2018-12-16] MEDS ORDERED: NS Irrig 1000ml ONE (09:00)
[2018-12-16] MEDS ORDERED: Omnipaque-300 100ml vial INJ ONE ×2 (09:00)
[2018-12-16] MEDS ORDERED: Glycopyrrolate 0.2mg/ml 1ml Vial ONE (09:00)
[2018-12-16] MEDS ORDERED: Isovue-M 300 15ml INJ ONE (09:00)
--- NOTE | 2018-12-16 09:23 | Pre-Procedure Note/Attestation ---
Pre-Procedure Note/Attestation Complete Prior to Procedure Planned Procedure: not applicable Procedure Narrative: aortogram with run-off; possible intervention Indications for Procedure Pre-Operative Diagnosis: PVD with rest pain and foot ulcer Attestation I attest that I discussed the nature of the procedure; its benefits; risks and complications; and alternatives (and the risks and benefits of such alternatives ), prior to the procedure, with the patient (or the patient's legal patient portal representative). I attest that, if there was a reasonable possibility of needing a blood transfusion, the patient (or the patient's legal patient portal representative) was given the [facility] standardized written summary, pursuant to the Horacio Coplay Blood Safety Act ([place] Health and Safety Code # 1645, as amended). I attest that I re-evaluated the patient just prior to the surgery and that there has been no change in the patient's H&P, except as documented below: Gee Salmeron MD December 16, 2018 09:23
--- NOTE | 2018-12-16 09:49 | Anethesia Preoperative Eval ---
Anesthesia Pre-op PMH/ROS General Date of Evaluation: December 16, 2018 Time of Evaluation: 08:45 Anesthesiologist: Soco Landaverde CRNA ASA Score: ASA 4 Mallampati Score Class I : Soft palate, uvula, fauces, pillars visible Class II: Soft palate, uvula, fauces visible Class III: Soft palate, base of uvula visible Class IV: Only hard plate visible Mallampati Classification: Class IV Surgeon: Faviola Diagnosis: PVD Surgical Procedure: (B) leg aortagram possible angioplasty, stent placement, arthrectomy Anesthesia History: none Social History: smoking Family History: no anesthesia problems Allergies: Coded Allergies: CEPHALEXIN (Unverified Allergy, Unknown, 02/24/14) SULFAMETHOXAZOLE (Unverified Allergy, Unknown, 02/24/14) TRIMETHOPRIM (Unverified Allergy, Unknown, 02/24/14) Medications: see eMAR Patient NPO?: Yes NPO Date: Dec 15, 2017 NPO Time: 1200 Past Medical History Cardiovascular: Reports: HTN, CAD, MS - s/p CABG, NSTEMI, arrhythmia, other - paced, CHF, Pulmonary: Reports: other - (B) pleural effusion, respiratory failure trach/ vent dependent Gastrointestinal/Genitourinary: Reports: GERD, ESRD - HD dependent, other - dysphagia, g-tube, s/p liver transplant 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: Reports: depression/anxiety Endocrine: Reports: DM HEENT: Reports: other - swollen tongue, thrush Hematology/Immune: Reports: other - PVD Other: obesity Anesthesia Pre-op Phys. Exam Physician Exam Last Vital Signs Date Time Temp Pulse Resp B/P (MAP) Pulse Ox O2 Delivery O2 Flow Rate FiO2 12/16/18 08:33 64 25 97 Mechanical Ventilator 35 12/16/18 05:12 140/66 12/16/18 04:00 97.3 Constitutional: other - mild respiratory distress, tachypnea Neurologic: other - anxious, alert & oriented Cardiovascular: RRR Respiratory: CTA Gastrointestinal: other - distended, g-tube Airway Exam Mallampati Score: Class IV MO: full Neck: trach in situ TMD: 3 FB ROM: full Teeth: intact, broken Dentures: no upper, no lower Anesthesia Pre-op A/P Labs Labs Test 12/14/18 04:00 White Blood Count 8.8 K/UL (4.8-10.8) Red Blood Count 3.88 M/UL (4.70-6.10) Hemoglobin 9.7 G/DL (14.2-18.0) Hematocrit 30.9 % (42.0-52.0) Mean Corpuscular Volume 80 FL (80-99) Mean Corpuscular Hemoglobin 24.9 PG (27.0-31.0) Mean Corpuscular Hemoglobin Concent 31.3 G/DL (32.0-36.0) Red Cell Distribution Width 16.3 % (11.6-14.8) Platelet Count 195 K/UL (150-450) Mean Platelet Volume 7.1 FL (6.5-10.1) Neutrophils (%) (Auto) 79.1 % (45.0-75.0) Lymphocytes (%) (Auto) 11.7 % (20.0-45.0) Monocytes (%) (Auto) 8.5 % (1.0-10.0) Eosinophils (%) (Auto) 0.0 % (0.0-3.0) Basophils (%) (Auto) 0.7 % (0.0-2.0) Sodium Level 129 MMOL/L (136-145) Potassium Level 4.8 MMOL/L (3.5-5.1) Chloride Level 90 MMOL/L (98-107) Carbon Dioxide Level 28 MMOL/L (21-32) Anion Gap 11 mmol/L (5-15) Blood Urea Nitrogen 68 mg/dL (7-18) Creatinine 7.6 MG/DL (0.55-1.30) Estimat Glomerular Filtration Rate 7.2 mL/min (>60) Glucose Level 156 MG/DL (74-106) Uric Acid 4.7 MG/DL (2.6-7.2) Calcium Level 8.6 MG/DL (8.5-10.1) Phosphorus Level 3.7 MG/DL (2.5-4.9) Magnesium Level 2.2 MG/DL (1.8-2.4) Total Bilirubin 0.3 MG/DL (0.2-1.0) Aspartate Amino Transf (AST/SGOT) 12 U/L (15-37) Alanine Aminotransferase (ALT/SGPT) 9 U/L (12-78) Alkaline Phosphatase 103 U/L (46-116) C-Reactive Protein, Quantitative 16.9 mg/dL (0.00-0.90) Pro-B-Type Natriuretic Peptide > 31043 pg/mL (0-125) Total Protein 6.1 G/DL (6.4-8.2) Albumin 1.9 G/DL (3.4-5.0) Globulin 4.2 g/dL Albumin/Globulin Ratio 0.5 (1.0-2.7) Accucheck 200 Studies Pre-op Studies: EKG - paced, echo - EF 20-25% Risk Assessment & Plan Assessment: ASA 4, ok to proceed Plan: MAC Status Change Before Surgery: No Pre-Antibiotics Drug: Soco Hinojosa CRNA December 16, 2018 09:49
[2018-12-16] MEDS ORDERED: fentaNYL 100 mcg/2 mL IV ONE ×2 (10:36→12:14)
[2018-12-16 11:45] LABS: INR 1.2 (0.9-1.1)
--- NOTE | 2018-12-16 12:51 | Immediate Post-Op Evaluation ---
Immediate Post-Op Evalulation Immediate Post-Op Evalulation Procedure: abdominal aortagram, (B) angiogram, angioplasty Date of Evaluation: December 16, 2018 Time of Evaluation: 12:25 IV Fluids: 0.9 NS 100 ml Estimated Blood Loss: 30 ml Blood Pressure Systolic: 154 Blood Pressure Diastolic: 81 Pulse Rate: 68 Respiratory Rate: 16 O2 Sat by Pulse Oximetry: 98 Temperature (Fahrenheit): 97.3 Pain Score (1-10): 5 Nausea: No Vomiting: No Complications none Patient Status: awake, patent, ventilated - AC rate 16, Vt 500 ml, peep 5, 35% Hydration Status: adequate Given Within 1 Hr of Incision: Soco Xiong CRNA December 16, 2018 12:51
--- NOTE | 2018-12-16 13:20 | Brief Operative Note ---
Immediate Post Operative Note Operative Note Pre-op Diagnosis: PVD with rest pain and foot ulcer Procedure: abdominal aortogram and right leg angio; TACK CLEANER of bilat. LUIS Post-op Diagnosis: same as pre-op Findings: consistent w/pre-op dx studies Surgeon: Sea Salmeron Anesthesia: MAC Specimen: none Complications: none Condition: stable Fluids: see anesth. record Estimated Blood Loss: minimal Drains: none Implant(s) used?: No Gee Salmeron MD December 16, 2018 13:20
[2018-12-16] MEDS ORDERED: Hydromorphone 0.5mg/0.5ml inj ONE (13:22)
--- NOTE | 2018-12-16 13:29 | Pulmonology Progress Note ---
Assessment/Plan Assessment/Plan 1. Resp failure, hypercapneic 2. End-stage renal disease, on dialysis, status post multiple upper extremity vascular procedures. 3. Coronary artery bypass surgery. 4. Diabetes. 5. Dysphonia, tongue swelling, resolved; s/p trach PLAN: tolerated weaning x 2 hrs tolerates feeds disc w RN dc when bed available case mgmt working on placement I will see intermittently Subjective ROS Limited/Unobtainable: Yes Allergies: Coded Allergies: CEPHALEXIN (Unverified Allergy, Unknown, 02/24/14) SULFAMETHOXAZOLE (Unverified Allergy, Unknown, 02/24/14) TRIMETHOPRIM (Unverified Allergy, Unknown, 02/24/14) Objective Last 24 Hour Vital Signs Date Time Temp Pulse Resp B/P (MAP) Pulse Ox O2 Delivery O2 Flow Rate FiO2 12/16/18 12:51 68 16 98 12/16/18 12:45 68 17 132/68 99 Mechanical Ventilator 12/16/18 12:40 66 16 121/67 99 Mechanical Ventilator 12/16/18 12:35 69 15 135/71 99 Mechanical Ventilator 12/16/18 12:30 70 18 148/76 98 Mechanical Ventilator 12/16/18 12:28 70 23 35 12/16/18 12:25 97.3 68 16 154/81 99 Mechanical Ventilator 12/16/18 12:05 Mechanical Ventilator 35 12/16/18 12:05 Mechanical Ventilator 35 12/16/18 09:00 65 140/66 12/16/18 08:45 65 24 35 12/16/18 08:43 65 24 97 Mechanical Ventilator 35 12/16/18 08:33 64 25 97 Mechanical Ventilator 35 12/16/18 08:00 Mechanical Ventilator 12/16/18 08:00 65 12/16/18 08:00 40 12/16/18 06:36 66 22 35 12/16/18 05:24 68 23 40 12/16/18 05:12 140/66 12/16/18 04:00 Mechanical Ventilator 12/16/18 04:00 40 12/16/18 04:00 97.3 68 24 134/67 (89) 98 12/16/18 03:33 68 12/16/18 02:34 67 22 40 12/16/18 01:08 68 25 40 12/16/18 00:00 97.2 68 23 140/88 (105) 99 12/16/18 00:00 Mechanical Ventilator 12/15/18 23:32 67 12/15/18 23:16 67 22 40 12/15/18 21:30 72 23 99 Mechanical Ventilator 40 12/15/18 21:14 69 23 99 Mechanical Ventilator 40 12/15/18 21:13 69 24 40 12/15/18 20:47 70 138/73 12/15/18 20:00 97.3 70 24 138/73 (94) 99 12/15/18 20:00 Mechanical Ventilator 12/15/18 20:00 40 12/15/18 19:19 70 23 40 12/15/18 19:12 70 12/15/18 18:00 122/75 12/15/18 17:14 72 20 40 12/15/18 16:00 40 12/15/18 16:00 Mechanical Ventilator 12/15/18 16:00 22 122/79 (93) 100 12/15/18 16:00 66 12/15/18 15:00 74 22 40 12/15/18 15:00 88 24 100 Mechanical Ventilator 40 12/15/18 14:50 78 22 100 Mechanical Ventilator 40 12/15/18 13:30 99 Intake and Output 12/15/18 12/16/18 18:59 06:59 Intake Total 790 ml 155 ml Balance 790 ml 155 ml Free Water 250 ml 65 ml Tube Feeding 540 ml 90 ml # Bowel Movements 1 Objective trach on vent General Appearance: no acute distress Laboratory Tests 12/16/18 11:29: Prothrombin Time 12.3H, Prothromb Time International Ratio 1.2H, Activated Partial Thromboplast Time 64H Current Medications Medications (Trade) Dose Ordered Sig/Aleks Route PRN Reason Start Time Stop Time Status Last Admin Dose Admin Albuterol/ Ipratropium (Albuterol/ Ipratropium) 3 ml QID HHN 12/15/18 14:45 12/20/18 14:44 12/16/18 08:33 Aspirin (ASA) 162 mg DAILY GT 12/08/18 09:00 12/20/18 08:59 12/15/18 09:27 Atorvastatin Calcium (Lipitor) 10 mg BEDTIME NG 12/01/18 21:00 12/21/18 20:59 12/15/18 20:47 Bacitracin (Bacitracin) 1 applic EVERY 12 HOURS TOPIC 12/11/18 21:00 01/06/19 17:59 12/15/18 20:47 Carvedilol (Coreg) 6.25 mg EVERY 12 HOURS PEG 12/06/18 21:00 01/03/19 20:59 12/15/18 20:47 Ciprofloxacin (Cipro 500mg tab) 500 mg Q24H ORAL 12/10/18 21:00 12/17/18 20:59 12/15/18 20:46 Clotrimazole (Lotrimin) 1 applic BID TOPIC 12/07/18 18:00 01/06/19 17:59 12/15/18 18:14 Dextrose (Dextrose 50%) 25 ml Q30M PRN IV Hypoglycemia 12/01/18 19:30 12/31/18 19:29 Dextrose (Dextrose 50%) 50 ml Q30M PRN IV Hypoglycemia 12/01/18 19:30 12/31/18 19:29 Docusate Sodium (Colace) 100 mg EVERY 8 HOURS PRN GT constipation 11/24/18 18:51 12/20/18 18:50 Escitalopram Oxalate (Lexapro) 10 mg DAILY ORAL 12/14/18 12:45 01/13/19 12:44 12/15/18 09:26 Hydralazine HCl (Apresoline) 10 mg Q6H PRN GT For High Blood Pressure 12/03/18 16:45 01/02/19 16:44 12/07/18 04:47 Hydromorphone HCl (Dilaudid) 1 mg Q4H PRN GT For Pain 12/14/18 15:30 12/21/18 15:29 12/16/18 04:11 Insulin Aspart (NovoLOG) EVERY 6 HOURS SUBQ 12/02/18 00:00 12/31/18 20:59 12/15/18 23:42 Lactulose (Cephulac) 20 gm THREE TIMES A DAY PRN GT Constipation 11/24/18 18:51 12/23/18 18:50 Lansoprazole (Prevacid) 30 mg BID GT 11/20/18 09:00 12/20/18 08:59 12/15/18 18:14 Mirtazapine (Remeron) 7.5 mg BEDTIME GT 12/14/18 21:00 01/13/19 20:59 12/15/18 20:47 Nicotine (Nicoderm) 1 patch Q24H TDERMAL 12/01/18 22:15 12/21/18 22:14 12/15/18 21:38 Nitroglycerin (Nitro-Bid) 1 inch TID@0600,1200,1800 TOPIC 12/07/18 12:00 01/06/19 11:59 12/16/18 05:12 Sevelamer Carbonate (Renvela) 800 mg Q8HR GT 11/20/18 14:00 12/20/18 13:59 12/16/18 05:12 Tacrolimus (Prograf) 2 mg MoWeFr@0000,1200 ORAL 12/07/18 00:00 12/21/18 00:00 12/15/18 23:40 Tacrolimus (Prograf) 2 mg SuTuThSa@0900,2100 ORAL 12/05/18 21:00 01/04/19 20:59 12/15/18 20:47 Saroj Mendoza MD December 16, 2018 13:29
[2018-12-16] MEDS ORDERED: Hydromorphone 0.5mg/0.5ml inj IVP PRN ×3 (13:30→13:45)
[2018-12-16] MEDS ORDERED: DiphenhydrAMINE 50mg/ml Inj IVP PRN (13:45)
--- NOTE | 2018-12-16 14:24 | Nephrology Progress Note ---
Assessment/Plan Problem List: (1) ESRD (end stage renal disease) on dialysis (2) Foot ulcer (3) CHF (congestive heart failure) Assessment: Ej Fx 20 % (4) Pacemaker (5) Acute respiratory failure Assessment: with Co2 retention Assessment ESRD with high K and SOB on admit Foot ulcer, likely infected High Troponin likely NSTMI Pacer , Pleural effusion s/p CABGS s/p Liver transplant Plan doing PT , improving next HD 12/16 GT site infection, topical antibiotic Neuro note appreciated placement in process vascular esteban regarding heel ulcer per Dr Mcgill pain med change to dilaudid GT Now has tracheostomy and PEG Adjust BP meds add nitro paste TID Antibiotics by ID per cardio and ID Podiatry and Vascular surgical fu ? DC planning? ALSO COVERING MEDCINE FOR DR BERG Subjective ROS Limited/Unobtainable: No Constitutional: Reports: malaise Objective Objective Last 24 Hour Vital Signs Date Time Temp Pulse Resp B/P (MAP) Pulse Ox O2 Delivery O2 Flow Rate FiO2 12/16/18 12:51 68 16 98 12/16/18 12:45 68 17 132/68 99 Mechanical Ventilator 12/16/18 12:40 66 16 121/67 99 Mechanical Ventilator 12/16/18 12:35 69 15 135/71 99 Mechanical Ventilator 12/16/18 12:30 70 18 148/76 98 Mechanical Ventilator 12/16/18 12:28 70 23 35 12/16/18 12:25 97.3 68 16 154/81 99 Mechanical Ventilator 12/16/18 12:05 Mechanical Ventilator 35 12/16/18 12:05 Mechanical Ventilator 35 12/16/18 09:00 65 140/66 12/16/18 08:45 65 24 35 12/16/18 08:43 65 24 97 Mechanical Ventilator 35 12/16/18 08:33 64 25 97 Mechanical Ventilator 35 12/16/18 08:00 Mechanical Ventilator 12/16/18 08:00 65 12/16/18 08:00 40 12/16/18 06:36 66 22 35 12/16/18 05:24 68 23 40 12/16/18 05:12 140/66 12/16/18 04:00 Mechanical Ventilator 12/16/18 04:00 40 12/16/18 04:00 97.3 68 24 134/67 (89) 98 12/16/18 03:33 68 12/16/18 02:34 67 22 40 12/16/18 01:08 68 25 40 12/16/18 00:00 97.2 68 23 140/88 (105) 99 12/16/18 00:00 Mechanical Ventilator 12/15/18 23:32 67 12/15/18 23:16 67 22 40 12/15/18 21:30 72 23 99 Mechanical Ventilator 40 12/15/18 21:14 69 23 99 Mechanical Ventilator 40 12/15/18 21:13 69 24 40 12/15/18 20:47 70 138/73 12/15/18 20:00 97.3 70 24 138/73 (94) 99 12/15/18 20:00 Mechanical Ventilator 12/15/18 20:00 40 12/15/18 19:19 70 23 40 12/15/18 19:12 70 12/15/18 18:00 122/75 12/15/18 17:14 72 20 40 12/15/18 16:00 40 12/15/18 16:00 Mechanical Ventilator 12/15/18 16:00 22 122/79 (93) 100 12/15/18 16:00 66 12/15/18 15:00 74 22 40 12/15/18 15:00 88 24 100 Mechanical Ventilator 40 12/15/18 14:50 78 22 100 Mechanical Ventilator 40 Intake and Output 12/15/18 12/16/18 18:59 06:59 Intake Total 790 ml 155 ml Balance 790 ml 155 ml Free Water 250 ml 65 ml Tube Feeding 540 ml 90 ml # Bowel Movements 1 Laboratory Tests 12/16/18 11:29: Prothrombin Time 12.3H, Prothromb Time International Ratio 1.2H, Activated Partial Thromboplast Time 64H Height (Feet): 5 Height (Inches): 4.00 Weight (Pounds): 101 General Appearance: no apparent distress EENT: other - trach Cardiovascular: normal rate Respiratory/Chest: decreased breath sounds Abdomen: distended Objective no other change Nakul Stevens MD December 16, 2018 14:24
--- NOTE | 2018-12-16 15:56 | General Progress Note ---
Assessment/Plan Assessment/Plan: Assessment and Recs: # Coagulopathy likely secondary to decreased Vitk dependent cofactors (high INR , PT) --> monitor closely for any evidence of bleeding --> hold off on mixing study at this time unless severe changes noted --> VIT K on prn basis sq can be administered ==> recently has improved inr 1.2-->1.1 # Anemia of chronic disease due to underlying chronic medical issues, multifactorial as well as kidney disease --> Anemia workup has been ordered, rule out gi bleed, seen by gi, also reviewed w/u --> HAS BEEN reordered since refusing --> No evidence of hemolysis is noted, peripheral smear has been reviewed. --> Epogen can be consider if hgb downtrends --> Medications have been reviewed --> evaluate with Gi team prn --> transfuse if hgb is < 7 (will trend CBC daily) ==> hgb trend 11.2-->10.9-->10.8-->10.7-->10.2-->9.7 # Failure to thrive is likely related to poor overall status, poor functional status --> with multiple decub ulcerations that are noted, seen by id/surgery --> s/p trach as well --> cea is wnl # Acute respiratory failure is now s/p trach to vent --> as per surgery recs # Ground glass opacities present on imaging of lung --> with pleural effusions, s/p drainage at this time --> no evidence for malignancy is noted # Pleural effusion --> s/p thoracentesis # Hyperkalemia --> kayxelate has been given # Renal failure --> per renal recs, appreciated --> getting hd as per schedule # Altered level of consciousness ==> currently as per baseline The timing of this note does not necessarily reflect the time of the patient was seen. Greatly appreciate consultation! Subjective Constitutional: Denies: no symptoms, chills, diaphoresis, fever, malaise, weakness, other HEENT: Denies: no symptoms, eye pain, blurred vision, tearing, double vision, ear pain, ear discharge, nose pain, nose congestion, throat pain, throat swelling, mouth pain, mouth swelling, other 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: Denies: no symptoms, anxiety, depressed, emotional problems, headache, numbness, paresthesia, pre-existing deficit, seizure, tingling, tremors, weakness, other Endocrine: Denies: no symptoms, excessive sweating, flushing, intolerance to cold, intolerance to heat, increased hunger, increased thirst, increased urine, unexplained weight gain, unexplained weight loss, other Allergies: Coded Allergies: CEPHALEXIN (Unverified Allergy, Unknown, 02/24/14) SULFAMETHOXAZOLE (Unverified Allergy, Unknown, 02/24/14) TRIMETHOPRIM (Unverified Allergy, Unknown, 02/24/14) Subjective 11/30: comfortable, on abx, no complaints, on t-piece 12/01: to have hd done potentially tomorrow, is more alert/awake 12/02: no major bleeding, hgb remains approx 11, no changes 12/03: no events, breathing mildly better, hgb is improved 12/04: on vent/trach, no major changes, sr ekg 12/10: small amount of secretions, on trach/vent, no issues otherwise 12/11: no major issues, no complaints, labs reviewed, no sig changes 12/13: no events to report, no fevers or chills, awaiting placement 12/14: no changes, no major events to report, no fevers or chills 12/15: pending placement, getting gt feeds and hd as per renal 12/16: labs have been reviewed, cbc noted, no changes Objective Last 24 Hour Vital Signs Date Time Temp Pulse Resp B/P (MAP) Pulse Ox O2 Delivery O2 Flow Rate FiO2 12/16/18 15:13 69 25 35 12/16/18 12:51 68 16 98 12/16/18 12:45 68 17 132/68 99 Mechanical Ventilator 12/16/18 12:40 66 16 121/67 99 Mechanical Ventilator 12/16/18 12:35 69 15 135/71 99 Mechanical Ventilator 12/16/18 12:30 70 18 148/76 98 Mechanical Ventilator 12/16/18 12:28 70 23 35 12/16/18 12:25 97.3 68 16 154/81 99 Mechanical Ventilator 12/16/18 12:05 Mechanical Ventilator 35 12/16/18 12:05 Mechanical Ventilator 35 12/16/18 09:00 65 140/66 12/16/18 08:45 65 24 35 12/16/18 08:43 65 24 97 Mechanical Ventilator 35 12/16/18 08:33 64 25 97 Mechanical Ventilator 35 12/16/18 08:00 Mechanical Ventilator 12/16/18 08:00 65 12/16/18 08:00 40 12/16/18 06:36 66 22 35 12/16/18 05:24 68 23 40 12/16/18 05:12 140/66 12/16/18 04:00 Mechanical Ventilator 12/16/18 04:00 40 12/16/18 04:00 97.3 68 24 134/67 (89) 98 12/16/18 03:33 68 12/16/18 02:34 67 22 40 12/16/18 01:08 68 25 40 12/16/18 00:00 97.2 68 23 140/88 (105) 99 12/16/18 00:00 Mechanical Ventilator 12/15/18 23:32 67 12/15/18 23:16 67 22 40 12/15/18 21:30 72 23 99 Mechanical Ventilator 40 12/15/18 21:14 69 23 99 Mechanical Ventilator 40 12/15/18 21:13 69 24 40 12/15/18 20:47 70 138/73 12/15/18 20:00 97.3 70 24 138/73 (94) 99 12/15/18 20:00 Mechanical Ventilator 12/15/18 20:00 40 12/15/18 19:19 70 23 40 12/15/18 19:12 70 12/15/18 18:00 122/75 12/15/18 17:14 72 20 40 12/15/18 16:00 40 12/15/18 16:00 Mechanical Ventilator 12/15/18 16:00 22 122/79 (93) 100 12/15/18 16:00 66 Intake and Output 12/15/18 12/16/18 18:59 06:59 Intake Total 790 ml 155 ml Balance 790 ml 155 ml Free Water 250 ml 65 ml Tube Feeding 540 ml 90 ml # Bowel Movements 1 Laboratory Tests 12/16/18 11:29: Prothrombin Time 12.3H, Prothromb Time International Ratio 1.2H, Activated Partial Thromboplast Time 64H Height (Feet): 5 Height (Inches): 4.00 Weight (Pounds): 101 Objective PE General Appearance: mild distress, moderate distress Lines, tubes and drains: peripheral HEENT: EOMI, thrush, tonsils swollen ++trach Neck: normal inspection Respiratory/Chest: decreased breath sounds, accessory muscle use Cardiovascular/Chest: tachycardia Abdomen: soft, no organomegaly, no mass, ++ peg Extremities: other Skin Exam: warm/dry, rash Neurologic: alert, responsive Zacarias Khoury MD December 16, 2018 15:56
--- NOTE | 2018-12-16 17:11 | Infectious Diseases Prog Note ---
Assessment/Plan Problems: (1) G-tube site cellulitis Assessment & Plan: culture from the G tube site grew pseudomonas , S/P ciprofloxacin for 7 days , continue local care and antibiotics as per GI (2) Thrush, oral Assessment & Plan: continue local nystatin as needed , S/P micafungin for three weeks empirically (3) HCV antibody positive Assessment & Plan: no evidence of active infection, with undetectable viral load , suspect due to previous infection , cleared, S/P liver transplant . (4) Foot ulcer Assessment & Plan: in diabetic patient , with MRSA , S/P vancomycin treatment with HD for two weeks , recommend vascular eval . bone scan ruled out osteomyelitis of the heel . 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 now improving, pulmonary is following (8) Pleural effusion Assessment & Plan: recurrent on the right, with lung collapse , S/P thoracentesis X2 with removal of 1.5 cc of clear fluids. PREVIOUS culture were negative with negative cytology Subjective Constitutional: Reports: no symptoms HEENT: Reports: no symptoms Respiratory: Reports: no symptoms Breasts: Reports: no symptoms Cardiovascular: Reports: no symptoms Gastrointestinal/Abdominal: Reports: no symptoms Genitourinary: Reports: no symptoms Neurologic: Reports: no symptoms Psychiatric: Reports: no symptoms Skin: Reports: no symptoms Endocrine: Reports: no symptoms Hematologic: Reports: no symptoms Musculoskeletal: Reports: no symptoms Allergies: Coded Allergies: CEPHALEXIN (Unverified Allergy, Unknown, 02/24/14) SULFAMETHOXAZOLE (Unverified Allergy, Unknown, 02/24/14) TRIMETHOPRIM (Unverified Allergy, Unknown, 02/24/14) Subjective he was comfortable, lying in bed, no tongue swelling , awake and responsive, no fever or chills, no significant secretions , no SOB . has less thrush on his tongue Objective Vital Signs Last 24 Hour Vital Signs Date Time Temp Pulse Resp B/P (MAP) Pulse Ox O2 Delivery O2 Flow Rate FiO2 12/16/18 16:46 65 22 35 12/16/18 16:00 35 12/16/18 16:00 65 12/16/18 16:00 98.0 21 101/41 (61) 99 12/16/18 16:00 Mechanical Ventilator 12/16/18 15:13 69 25 35 12/16/18 14:15 35 12/16/18 13:50 35 12/16/18 13:50 12.0 35 12/16/18 13:30 97.8 65 15 126/83 100 Mechanical Ventilator 12/16/18 13:15 71 14 129/82 99 Mechanical Ventilator 12/16/18 13:00 66 12 122/78 98 Mechanical Ventilator 12/16/18 12:51 68 16 98 12/16/18 12:45 68 17 132/68 99 Mechanical Ventilator 12/16/18 12:40 66 16 121/67 99 Mechanical Ventilator 12/16/18 12:35 69 15 135/71 99 Mechanical Ventilator 12/16/18 12:30 70 18 148/76 98 Mechanical Ventilator 12/16/18 12:28 70 23 35 12/16/18 12:25 97.3 68 16 154/81 99 Mechanical Ventilator 12/16/18 12:05 Mechanical Ventilator 35 12/16/18 12:05 Mechanical Ventilator 35 12/16/18 09:00 65 140/66 12/16/18 08:45 65 24 35 12/16/18 08:43 65 24 97 Mechanical Ventilator 35 12/16/18 08:33 64 25 97 Mechanical Ventilator 35 12/16/18 08:00 Mechanical Ventilator 12/16/18 08:00 65 12/16/18 08:00 40 12/16/18 06:36 66 22 35 12/16/18 05:24 68 23 40 12/16/18 05:12 140/66 12/16/18 04:00 Mechanical Ventilator 12/16/18 04:00 40 12/16/18 04:00 97.3 68 24 134/67 (89) 98 12/16/18 03:33 68 12/16/18 02:34 67 22 40 12/16/18 01:08 68 25 40 12/16/18 00:00 97.2 68 23 140/88 (105) 99 12/16/18 00:00 Mechanical Ventilator 12/15/18 23:32 67 12/15/18 23:16 67 22 40 12/15/18 21:30 72 23 99 Mechanical Ventilator 40 12/15/18 21:14 69 23 99 Mechanical Ventilator 40 12/15/18 21:13 69 24 40 12/15/18 20:47 70 138/73 12/15/18 20:00 97.3 70 24 138/73 (94) 99 12/15/18 20:00 Mechanical Ventilator 12/15/18 20:00 40 12/15/18 19:19 70 23 40 12/15/18 19:12 70 12/15/18 18:00 122/75 12/15/18 17:14 72 20 40 Height (Feet): 5 Height (Inches): 4.00 Weight (Pounds): 101 General Appearance: WD/WN, no acute distress HEENT: normocephalic, atraumatic, anicteric, mucous membranes moist, PERRL, EOMI, pharynx normal, supple, no JVD, status post trach Respiratory/Chest: chest wall non-tender, lungs clear, normal breath sounds, no respiratory distress, no accessory muscle use, decreased breath sounds, crackles/rales Cardiovascular: normal peripheral pulses, normal rate, regular rhythm, no gallop/murmur, no JVD Abdomen: normal bowel sounds, soft, non tender, no organomegaly, non distended , no mass, no scars Extremities: no cyanosis, no clubbing Skin: no rash, no lesions, no ulcers 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: director family 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 normal, no motor/sensory deficits, oriented x 3, responsive Lymphatic: no neck adenopathy, no groin adenopathy Musculoskeletal: normal muscle bulk, no effusion Laboratory Tests Test 12/16/18 11:29 Prothrombin Time 12.3 SEC (9.30-11.50) H Prothromb Time International Ratio 1.2 (0.9-1.1) H Activated Partial Thromboplast Time 64 SEC (23-33) H Current Medications Medications (Trade) Dose Ordered Sig/Aleks Route PRN Reason Start Time Stop Time Status Last Admin Dose Admin Albuterol/ Ipratropium (Albuterol/ Ipratropium) 3 ml QID HHN 12/15/18 14:45 12/20/18 14:44 12/16/18 08:33 Aspirin (ASA) 162 mg DAILY GT 12/08/18 09:00 12/20/18 08:59 12/15/18 09:27 Atorvastatin Calcium (Lipitor) 10 mg BEDTIME NG 12/01/18 21:00 12/21/18 20:59 12/15/18 20:47 Bacitracin (Bacitracin) 1 applic EVERY 12 HOURS TOPIC 12/11/18 21:00 01/06/19 17:59 12/15/18 20:47 Carvedilol (Coreg) 6.25 mg EVERY 12 HOURS PEG 12/06/18 21:00 01/03/19 20:59 12/15/18 20:47 Ciprofloxacin (Cipro 500mg tab) 500 mg Q24H ORAL 12/10/18 21:00 12/17/18 20:59 12/15/18 20:46 Clotrimazole (Lotrimin) 1 applic BID TOPIC 12/07/18 18:00 01/06/19 17:59 12/15/18 18:14 Dextrose (Dextrose 50%) 25 ml Q30M PRN IV Hypoglycemia 12/01/18 19:30 12/31/18 19:29 Dextrose (Dextrose 50%) 50 ml Q30M PRN IV Hypoglycemia 12/01/18 19:30 12/31/18 19:29 Docusate Sodium (Colace) 100 mg EVERY 8 HOURS PRN GT constipation 11/24/18 18:51 12/20/18 18:50 Escitalopram Oxalate (Lexapro) 10 mg DAILY ORAL 12/14/18 12:45 01/13/19 12:44 12/15/18 09:26 Hydralazine HCl (Apresoline) 10 mg Q6H PRN GT For High Blood Pressure 12/03/18 16:45 01/02/19 16:44 12/07/18 04:47 Hydromorphone HCl (Dilaudid) 1 mg Q4H PRN GT For Pain 12/14/18 15:30 12/21/18 15:29 12/16/18 04:11 Insulin Aspart (NovoLOG) EVERY 6 HOURS SUBQ 12/02/18 00:00 12/31/18 20:59 12/15/18 23:42 Lactulose (Cephulac) 20 gm THREE TIMES A DAY PRN GT Constipation 11/24/18 18:51 12/23/18 18:50 Lansoprazole (Prevacid) 30 mg BID GT 11/20/18 09:00 12/20/18 08:59 12/15/18 18:14 Mirtazapine (Remeron) 7.5 mg BEDTIME GT 12/14/18 21:00 01/13/19 20:59 12/15/18 20:47 Nicotine (Nicoderm) 1 patch Q24H TDERMAL 12/01/18 22:15 12/21/18 22:14 12/15/18 21:38 Nitroglycerin (Nitro-Bid) 1 inch TID@0600,1200,1800 TOPIC 12/07/18 12:00 01/06/19 11:59 12/16/18 05:12 Sevelamer Carbonate (Renvela) 800 mg Q8HR GT 11/20/18 14:00 12/20/18 13:59 12/16/18 05:12 Tacrolimus (Prograf) 2 mg MoWeFr@0000,1200 ORAL 12/07/18 00:00 12/21/18 00:00 12/15/18 23:40 Tacrolimus (Prograf) 2 mg SuTuThSa@0900,2100 ORAL 12/05/18 21:00 01/04/19 20:59 12/15/18 20:47 Francois Landis M.D. December 16, 2018 17:11
[2018-12-16 19:12] LABS: ALANINE AMINOTRANSFERASE 11 U/L (12-78); ALBUMIN 1.9 G/DL (3.4-5.0); ALBUMIN/GLOBULIN RATIO 0.4 (1.0-2.7); ALKALINE PHOSPHATASE 131 U/L (46-116); ANION GAP 10 mmol/L (5-15); ASPARTATE AMINO TRANSFERASE 14 U/L (15-37); BILIRUBIN,TOTAL 0.3 MG/DL (0.2-1.0); BLOOD UREA NITROGEN 64 mg/dL (7-18); CARBON DIOXIDE 29 MMOL/L (21-32); CHLORIDE 91 MMOL/L (98-107); POTASSIUM 4.6 MMOL/L (3.5-5.1); SODIUM 130 MMOL/L (136-145)
[2018-12-16 19:15] LABS: PHOSPHORUS 3.8 MG/DL (2.5-4.9)
[2018-12-16 19:16] LABS: BASOPHILS % (AUTO) 1.1 % (0.0-2.0); EOSINOPHILS % (AUTO) 0.1 % (0.0-3.0); HEMATOCRIT 31.5 % (42.0-52.0); HEMOGLOBIN 9.7 G/DL (14.2-18.0); LYMPHOCYTES % (AUTO) 17.4 % (20.0-45.0); MEAN CORPUSCULAR VOLUME 79 FL (80-99); MONOCYTES % (AUTO) 8.1 % (1.0-10.0); NEUTROPHILS % (AUTO) 73.3 % (45.0-75.0); PLATELET COUNT 200 K/UL (150-450); RED BLOOD COUNT 3.99 M/UL (4.70-6.10); RED CELL DISTRIBUTION WIDTH 15.9 % (11.6-14.8); WHITE BLOOD COUNT 6.4 K/UL (4.8-10.8)
--- NOTE | 2018-12-16 19:25 | Neurology Progress Note ---
Interim History Interim History Interim History Mr. Restrepo feels relatively well. He is breathing well. He is undergoing HD now. He has not had any weaning trial today. He feels generally weaker. His right foot is less painful. The mind has been clear. He has not walked yet. The right upper extremity is less swollen and less painful. He denies any new neurologic symptoms. Review of Systems Neuro Review of Systems Benign. Objective Physical Exam Last Vital Signs Date Time Temp Pulse Resp B/P (MAP) Pulse Ox O2 Delivery O2 Flow Rate FiO2 12/16/18 19:03 69 23 35 12/16/18 17:44 101/41 12/16/18 16:00 98.0 99 12/16/18 16:00 Mechanical Ventilator 12/16/18 13:50 12.0 Laboratory Tests Test 12/16/18 11:29 12/16/18 18:30 Prothrombin Time 12.3 SEC (9.30-11.50) H Prothromb Time International Ratio 1.2 (0.9-1.1) H Activated Partial Thromboplast Time 64 SEC (23-33) H White Blood Count Pending Red Blood Count Pending Hemoglobin Pending Hematocrit Pending Mean Corpuscular Volume Pending Mean Corpuscular Hemoglobin Pending Mean Corpuscular Hemoglobin Concent Pending Red Cell Distribution Width Pending Platelet Count Pending Mean Platelet Volume Pending Neutrophils (%) (Auto) Pending Lymphocytes (%) (Auto) Pending Monocytes (%) (Auto) Pending Eosinophils (%) (Auto) Pending Basophils (%) (Auto) Pending Sodium Level 130 MMOL/L (136-145) L Potassium Level 4.6 MMOL/L (3.5-5.1) Chloride Level 91 MMOL/L (98-107) L Carbon Dioxide Level 29 MMOL/L (21-32) Anion Gap 10 mmol/L (5-15) Blood Urea Nitrogen 64 mg/dL (7-18) H Creatinine 7.0 MG/DL (0.55-1.30) H Estimat Glomerular Filtration Rate 7.9 mL/min (>60) Glucose Level 110 MG/DL (74-106) H Calcium Level 9.0 MG/DL (8.5-10.1) Phosphorus Level 3.8 MG/DL (2.5-4.9) Magnesium Level 2.3 MG/DL (1.5-2.4) Total Bilirubin 0.3 MG/DL (0.2-1.0) Aspartate Amino Transf (AST/SGOT) 14 U/L (15-37) L Alanine Aminotransferase (ALT/SGPT) 11 U/L (12-78) L Alkaline Phosphatase 131 U/L (46-116) H Troponin I 0.030 ng/mL (0.000-0.056) Total Protein 6.3 G/DL (6.4-8.2) L Albumin 1.9 G/DL (3.4-5.0) L Globulin 4.4 g/dL Albumin/Globulin Ratio 0.4 (1.0-2.7) L Neurologic Exam Objective PHYSICAL EXAMINATION: GENERAL: He is a well-developed and well-nourished, pleasant gentleman, lying in bed connected to a ventilator via tracheostomy. HEAD: Normocephalic and atraumatic. EENT: Examination benign. NECK: No neck rigidity was observed. He did have a tracheostomy. NEUROLOGICAL EXAMINATION: MENTAL STATUS EXAMINATION: He was awake and alert. He was oriented to person, place, and time. He was able to recall 3/3 words immediately, after 1 minute, and after 3 minutes. He was able to remember president Trskyler through [employer]. His mathematical skills were minimally impaired. His visuospatial function was preserved. SPEECH: Could not be tested, but he was able to mouth words relatively well. LANGUAGE: He was able to comprehend and express himself relatively well using his communication board. CRANIAL NERVES EXAMINATION: II: The visual mckeon were intact to confrontation testing. III, IV & : The external ocular movements were full and the pupils 3 mm in diameter, equal, round, regular, and reactive sluggishly to light. V: He had normal facial sensations, and the temporales, masseters, and pterygoids functioned normally. VII: He had normal facial expressions and no facial asymmetry. VIII: Hearing was decreased bilaterally with worse hearing on the left side compared to the right. IX: The palate moved symmetrically on phonation. X: Could not be tested. XI: The sternocleidomastoids and trapezii functioned normally. XII: The tongue was in the midline without any fasciculations or atrophy. MOTOR SYSTEM: The tone was normal in all four extremities. Examination of muscle mass revealed generalized muscle wasting. Examination of power revealed G 5/5 power except for G 4+/5 power in the iliopsoas muscles bilaterally. SENSORY EXAMINATION: He had intact sensations to light touch. Other sensory modalities could not be tested adequately. REFLEXES: 1+ and bilaterally symmetrical at the biceps, triceps, brachioradialis , and knees, 0 at both ankles. The plantar responses were flexor bilaterally. COORDINATION: He performed well on [id number] testing. STANCE & GAIT: Were deferred. Impression/Recommendations Diagnostic Impression 1. Mr. Gregg Restrepo is a 68-year-old, right-handed, gentleman with past history of multiple medical problems including hypertension, diabetes mellitus, end-stage renal disease for which he is hemodialysis dependent, prior episodes of sepsis, and prior episodes of encephalopathy, who was admitted to [facility] on October 31, 2018. Following that, he has had a stormy hospital course including pneumonia and sepsis, right foot infection, respiratory failure for which he has needed tracheostomy and in addition he has exhibited an alteration in his mental state with some waxing and waning of his mental state. 2. He feels relatively well. He is breathing well. He is undergoing HD now. He has not had any weaning trial today. He feels generally weaker. His right foot is less painful. The mind has been clear. He has not walked yet. The right upper extremity is less swollen and less painful. He denies any new neurologic symptoms. 3. On neurological examination, at this time, he is fully oriented, has mild problems with recent and remote memory, normal visuospatial function, minimally impaired higher cognitive function. He is able to comprehend and express himself well. He does have mild G 4+/5 weakness in the iliopsoas muscles bilaterally, globally diminished deep tendon reflexes with loss of ankle jerks, but no definite focal or lateralizing neurological findings. 4. His latest laboratory data on my initial evaluation revealed that he was anemic with a hemoglobin of 10.8 G. His last blood gas performed on 11/14/2018 revealed that he had a pCO2 elevated at 56.4 with a normal pO2 of 88.3 and normal pH of 7.37. His latest chemistry panel revealed that he was mildly hyponatremic with a sodium of 130, and had a chloride of 90. The BUN was elevated at 75, creatinine elevated at 7.4, glucose elevated at 156, Hemoglobin A1c elevated at 6.9%, Alkaline phosphatase elevated at 131, and ProBNP greater than 35,000. His last B12 level on 11/07/2018 was 723. His last folate on was 18.6. His last TSH on 12/06/2018 was 4.82, which is minimally elevated. 5. The CT scan of the brain performed on 11/10/2018 was benign for acute intracranial pathology. 6. The EEG done on 12/08/18 revealed left temporal dysfunction. 7. The patient's history and neurological examination are most consistent with mild multifactorial encephalopathy, which apparently waxes and wanes, but no definite focal neurological dysfunction. His encephalopathy is stable today. 8. He tells me that he had a brain bleed many years ago. I did review his imaging done at [facility] a few years ago and he had closed head injuries with subarachnoid and subdural blood in the past. 9. He is worried about his hearing getting worse. Recommendations 1. Continue present management. 2. Continue to correct the patient's toxic metabolic imbalances. 3. Mobilize with PT/OT. 4. Consider getting ENT evaluation for worsening hearing. 5. Observe closely. Pantera Cool M.D., M.S.P.H. Pantera Cool MD December 16, 2018 19:25
[2018-12-16] MEDS: Ciprofloxacin 500mg tab ORAL SCH (21:10)
--- NOTE | 2018-12-16 22:37 | Psych Consult Progress Note ---
Psychiatry Progress Note Psychiatry Progress Note Medications Current Medications Medications (Trade) Dose Ordered Sig/Aleks Route PRN Reason Start Time Stop Time Status Last Admin Dose Admin Albuterol/ Ipratropium (Albuterol/ Ipratropium) 3 ml QIDRT HHN 12/17/18 07:00 12/20/18 14:44 Aspirin (ASA) 162 mg DAILY GT 12/08/18 09:00 12/20/18 08:59 12/15/18 09:27 Atorvastatin Calcium (Lipitor) 10 mg BEDTIME NG 12/01/18 21:00 12/21/18 20:59 12/16/18 21:10 Bacitracin (Bacitracin) 1 applic EVERY 12 HOURS TOPIC 12/11/18 21:00 01/06/19 17:59 12/16/18 21:10 Carvedilol (Coreg) 6.25 mg EVERY 12 HOURS PEG 12/06/18 21:00 01/03/19 20:59 12/15/18 20:47 Ciprofloxacin (Cipro 500mg tab) 500 mg Q24H ORAL 12/10/18 21:00 12/17/18 20:59 12/16/18 21:10 Clotrimazole (Lotrimin) 1 applic BID TOPIC 12/07/18 18:00 01/06/19 17:59 12/16/18 17:43 Dextrose (Dextrose 50%) 25 ml Q30M PRN IV Hypoglycemia 12/01/18 19:30 12/31/18 19:29 Dextrose (Dextrose 50%) 50 ml Q30M PRN IV Hypoglycemia 12/01/18 19:30 12/31/18 19:29 Docusate Sodium (Colace) 100 mg EVERY 8 HOURS PRN GT constipation 11/24/18 18:51 12/20/18 18:50 Escitalopram Oxalate (Lexapro) 10 mg DAILY ORAL 12/14/18 12:45 01/13/19 12:44 12/15/18 09:26 Hydralazine HCl (Apresoline) 10 mg Q6H PRN GT For High Blood Pressure 12/03/18 16:45 01/02/19 16:44 12/07/18 04:47 Hydromorphone HCl (Dilaudid) 1 mg Q4H PRN GT For Pain 12/14/18 15:30 12/21/18 15:29 12/16/18 21:10 Insulin Aspart (NovoLOG) EVERY 6 HOURS SUBQ 12/02/18 00:00 12/31/18 20:59 12/15/18 23:42 Lactulose (Cephulac) 20 gm THREE TIMES A DAY PRN GT Constipation 11/24/18 18:51 12/23/18 18:50 Lansoprazole (Prevacid) 30 mg BID GT 11/20/18 09:00 12/20/18 08:59 12/16/18 17:06 Mirtazapine (Remeron) 7.5 mg BEDTIME GT 12/14/18 21:00 01/13/19 20:59 12/16/18 21:10 Nicotine (Nicoderm) 1 patch Q24H TDERMAL 12/01/18 22:15 12/21/18 22:14 12/16/18 21:15 Nitroglycerin (Nitro-Bid) 1 inch TID@0600,1200,1800 TOPIC 12/07/18 12:00 01/06/19 11:59 12/16/18 05:12 Sevelamer Carbonate (Renvela) 800 mg Q8HR GT 11/20/18 14:00 12/20/18 13:59 12/16/18 21:11 Tacrolimus (Prograf) 2 mg MoWeFr@0000,1200 ORAL 12/07/18 00:00 12/21/18 00:00 12/15/18 23:40 Tacrolimus (Prograf) 2 mg SuTuThSa@0900,2100 ORAL 12/05/18 21:00 01/04/19 20:59 12/15/18 20:47 Neurological/Psychiatric: Reports: anxiety, depressed, emotional problems Allergies: Coded Allergies: CEPHALEXIN (Unverified Allergy, Unknown, 02/24/14) SULFAMETHOXAZOLE (Unverified Allergy, Unknown, 02/24/14) TRIMETHOPRIM (Unverified Allergy, Unknown, 02/24/14) Objective Data Height (Feet): 5 Height (Inches): 4.00 Weight (Pounds): 101 General Appearance: no apparent distress, alert Appearance: disheveled Behavior Mannerisms: good eye contact Mental Status Exam - Affect: blunted Mental Status Exam - Mood: depressed, anxious Speech: clear Mental Status Exam - Thought P: no abnormalities Mental Status Exam - Suicidal: not present Assessment/Plan Problem List: (1) Encephalopathy acute ICD Codes: G93.40 - Encephalopathy, unspecified SNOMED: 94898447, 453560415 Status: stable Assessment/Plan: dc Zyprexa 2.5mg po qhs lexapro 10mg po qam remeron 7.5mg po qhs the pt has capacity to make decisions. Jeffrey Lala MD December 16, 2018 22:37
[2018-12-17] VITALS (10 sets, daily range): BP systolic 90–149; BP diastolic 31–78
[2018-12-17] MEDS: HYDROmorphone 2mg tab GT PRN (02:38)
[2018-12-17] MEDS: Renvela 800mg Pkt GT SCH ×3 (05:41→21:11)
[2018-12-17] MEDS: NovoLOG Insulin Flexpen SUBQ SCH ×4 (05:42→18:00)
[2018-12-17] MEDS: Nitroglycerin 2% oint pkt TOPIC SCH ×3 (05:43→18:08)
[2018-12-17] MEDS: Albuterol/Ipratropium 3ml neb HHN SCH ×4 (07:05→19:36)
[2018-12-17] MEDS ORDERED: Isovue-M 300 15ml INJ ONE (08:29)
[2018-12-17] MEDS ORDERED: Lidocaine 1% MPF 10mg/ml 5ml ONE (08:29)
[2018-12-17] MEDS ORDERED: Heparin 1000 units/ml 1ml Vial ONE (08:30)
[2018-12-17] MEDS ORDERED: Heparin 5000 units/ml inj ONE (08:30)
[2018-12-17] MEDS: Aspirin Baby 81mg GT SCH (08:47)
[2018-12-17] MEDS: Carvedilol 6.25mg Tab PEG SCH ×2 (08:48→21:00)
[2018-12-17] MEDS: Bacitracin Oint UD TOPIC SCH ×2 (09:00→21:10)
--- NOTE | 2018-12-17 09:28 | Pre-Procedure Note/Attestation ---
Pre-Procedure Note/Attestation Complete Prior to Procedure Procedure Narrative: aortogram with runoff; possible intervention Indications for Procedure Pre-Operative Diagnosis: PVD with rest pain and foot ulcer Attestation I attest that I discussed the nature of the procedure; its benefits; risks and complications; and alternatives (and the risks and benefits of such alternatives ), prior to the procedure, with the patient (or the patient's legal exhibit display representative). I attest that, if there was a reasonable possibility of needing a blood transfusion, the patient (or the patient's legal exhibit display representative) was given the [facility] standardized written summary, pursuant to the [place] Blood Safety Act ([place] Health and Safety Code # 1645, as amended). I attest that I re-evaluated the patient just prior to the surgery and that there has been no change in the patient's H&P, except as documented below: Gee Salmeron MD December 17, 2018 09:28
[2018-12-17] MEDS ORDERED: Omnipaque-300 100ml vial INJ ONE (09:30)
[2018-12-17] MEDS ORDERED: NS Irrig 1000ml ONE (09:30)
[2018-12-17] MEDS ORDERED: Sterile Water Irrig 1000ml IRRIG ONE (09:30)
[2018-12-17] MEDS ORDERED: NS 500ML IVPB ONE (09:31)
--- NOTE | 2018-12-17 10:29 | General Progress Note ---
Assessment/Plan Problem List: (1) Transplant ICD Codes: Z94.9 - Transplanted organ and tissue status, unspecified SNOMED: 780139588 (2) HTN (hypertension) ICD Codes: I10 - Essential (primary) hypertension SNOMED: 76932551 (3) Pacemaker ICD Codes: Z95.0 - Presence of cardiac pacemaker SNOMED: 467828047 (4) CHF (congestive heart failure) ICD Codes: I50.9 - Heart failure, unspecified SNOMED: 04111075 (5) DM (diabetes mellitus) ICD Codes: E11.9 - Type 2 diabetes mellitus without complications SNOMED: 42698575 (6) Foot ulcer ICD Codes: L97.509 - Non-pressure chronic ulcer of other part of unspecified foot with unspecified severity SNOMED: 17778211 Qualifiers: Qualified Codes: L97.511 - Non-pressure chronic ulcer of other part of right foot limited to breakdown of skin (7) ESRD (end stage renal disease) on dialysis ICD Codes: N18.6 - End stage renal disease; Z99.2 - Dependence on renal dialysis SNOMED: 256781729 Status: stable Assessment/Plan: History of liver transplant, currently on Prograf C. difficile negative status post tracheostomy and PEG Infected G-tube site, fu ID recs would care cx >> GRAM NEGATIVE BACILLUS GT site care BID/prn topical abx around GT site per ID HD per nephro cont tacrolimus prn transfusions ppi zofran prn bowel regimen follow labs supportive care Subjective ROS Limited/Unobtainable: No Allergies: Coded Allergies: CEPHALEXIN (Unverified Allergy, Unknown, 02/24/14) SULFAMETHOXAZOLE (Unverified Allergy, Unknown, 02/24/14) TRIMETHOPRIM (Unverified Allergy, Unknown, 02/24/14) Subjective he pulled his NGT again Objective Last 24 Hour Vital Signs Date Time Temp Pulse Resp B/P (MAP) Pulse Ox O2 Delivery O2 Flow Rate FiO2 12/17/18 08:48 70 149/78 12/17/18 08:38 71 28 35 12/17/18 08:00 Mechanical Ventilator 12/17/18 08:00 35 12/17/18 08:00 69 12/17/18 07:12 72 17 100 Mechanical Ventilator 35 12/17/18 07:07 69 26 35 12/17/18 07:05 68 24 99 Mechanical Ventilator 35 12/17/18 05:43 105/70 12/17/18 05:20 70 23 35 12/17/18 04:00 98.2 70 22 107/70 (82) 100 70 70 12/17/18 04:00 35 12/17/18 04:00 70 12/17/18 04:00 Mechanical Ventilator 12/17/18 03:08 98.7 12/17/18 03:05 70 23 35 12/17/18 01:04 70 19 35 12/17/18 00:00 70 12/17/18 00:00 Mechanical Ventilator 12/17/18 00:00 98.7 22 90/63 (72) 100 12/16/18 23:08 69 21 35 12/16/18 21:14 73 20 35 12/16/18 21:00 90 105/65 12/16/18 20:00 72 12/16/18 20:00 Mechanical Ventilator 12/16/18 20:00 98.2 20 94/51 (65) 100 12/16/18 20:00 35 12/16/18 19:04 Mechanical Ventilator 35 12/16/18 19:04 Mechanical Ventilator 35 12/16/18 19:03 69 23 35 12/16/18 17:44 101/41 12/16/18 16:46 65 22 35 12/16/18 16:00 35 12/16/18 16:00 65 12/16/18 16:00 98.0 21 101/41 (61) 99 12/16/18 16:00 Mechanical Ventilator 12/16/18 15:13 69 25 35 12/16/18 14:15 35 12/16/18 13:50 35 12/16/18 13:50 12.0 35 12/16/18 13:30 97.8 65 15 126/83 100 Mechanical Ventilator 12/16/18 13:15 71 14 129/82 99 Mechanical Ventilator 12/16/18 13:00 66 12 122/78 98 Mechanical Ventilator 12/16/18 12:51 68 16 98 12/16/18 12:45 68 17 132/68 99 Mechanical Ventilator 12/16/18 12:40 66 16 121/67 99 Mechanical Ventilator 12/16/18 12:35 69 15 135/71 99 Mechanical Ventilator 12/16/18 12:30 70 18 148/76 98 Mechanical Ventilator 12/16/18 12:28 70 23 35 5/1/19 12:25 97.3 68 16 154/81 99 Mechanical Ventilator 12/16/18 12:05 Mechanical Ventilator 35 12/16/18 12:05 Mechanical Ventilator 35 Intake and Output 12/16/18 12/17/18 19:00 07:00 Intake Total 170 ml 300 ml Output Total 1000 ml Balance 170 ml -700 ml Free Water 30 ml 120 ml IV Total 50 ml Tube Feeding 90 ml 180 ml Hemodialysis UF 1000 ml Laboratory Tests 12/16/18 11:29: Prothrombin Time 12.3H, Prothromb Time International Ratio 1.2H, Activated Partial Thromboplast Time 64H 12/16/18 18:30: White Blood Count 6.4, Red Blood Count 3.99L, Hemoglobin 9.7L, Hematocrit 31.5L , Mean Corpuscular Volume 79L, Mean Corpuscular Hemoglobin 24.4L, Mean Corpuscular Hemoglobin Concent 30.9L, Red Cell Distribution Width 15.9H, Platelet Count 200, Mean Platelet Volume 6.2L, Neutrophils (%) (Auto) 73.3, Lymphocytes (%) (Auto) 17.4L, Monocytes (%) (Auto) 8.1, Eosinophils (%) (Auto) 0.1, Basophils (%) (Auto) 1.1, Sodium Level 130L, Potassium Level 4.6, Chloride Level 91L, Carbon Dioxide Level 29, Anion Gap 10, Blood Urea Nitrogen 64H, Creatinine 7.0H, Estimat Glomerular Filtration Rate 7.9, Glucose Level 110H, Calcium Level 9.0, Phosphorus Level 3.8, Magnesium Level 2.3, Total Bilirubin 0.3, Aspartate Amino Transf (AST/SGOT) 14L, Alanine Aminotransferase (ALT/SGPT) 11L, Alkaline Phosphatase 131H, Troponin I 0.030, Total Protein 6.3L, Albumin 1.9L, Globulin 4.4, Albumin/Globulin Ratio 0.4L Height (Feet): 5 Height (Inches): 4.00 Weight (Pounds): 101 General Appearance: no apparent distress EENT: normal ENT inspection Neck: supple Cardiovascular: normal rate Respiratory/Chest: decreased breath sounds Abdomen: normal bowel sounds, non tender, soft Extremities: non-tender Jorge Escalera MD December 17, 2018 10:29
--- NOTE | 2018-12-17 10:31 | Podiatric Progress Note ---
Assessment/Plan Patient Gregg Restrepo is a 68 year old male who was admitted on Oct 31, 2018 at 19:13 with Subjective Allergies: Coded Allergies: CEPHALEXIN (Unverified Allergy, Unknown, 02/24/14) SULFAMETHOXAZOLE (Unverified Allergy, Unknown, 02/24/14) TRIMETHOPRIM (Unverified Allergy, Unknown, 02/24/14) Subjective Patient not available has gone to surgery for angio. Objective Exam Last 24 Hour Vital Signs Date Time Temp Pulse Resp B/P (MAP) Pulse Ox O2 Delivery O2 Flow Rate FiO2 12/17/18 08:48 70 149/78 12/17/18 08:38 71 28 35 12/17/18 08:00 Mechanical Ventilator 12/17/18 08:00 35 12/17/18 08:00 69 12/17/18 07:12 72 17 100 Mechanical Ventilator 35 12/17/18 07:07 69 26 35 12/17/18 07:05 68 24 99 Mechanical Ventilator 35 12/17/18 05:43 105/70 12/17/18 05:20 70 23 35 12/17/18 04:00 98.2 70 22 107/70 (82) 100 70 70 12/17/18 04:00 35 12/17/18 04:00 70 12/17/18 04:00 Mechanical Ventilator 12/17/18 03:08 98.7 12/17/18 03:05 70 23 35 12/17/18 01:04 70 19 35 12/17/18 00:00 70 12/17/18 00:00 Mechanical Ventilator 12/17/18 00:00 98.7 22 90/63 (72) 100 12/16/18 23:08 69 21 35 12/16/18 21:14 73 20 35 12/16/18 21:00 90 105/65 12/16/18 20:00 72 12/16/18 20:00 Mechanical Ventilator 12/16/18 20:00 98.2 20 94/51 (65) 100 12/16/18 20:00 35 12/16/18 19:04 Mechanical Ventilator 35 12/16/18 19:04 Mechanical Ventilator 35 12/16/18 19:03 69 23 35 12/16/18 17:44 101/41 12/16/18 16:46 65 22 35 12/16/18 16:00 35 12/16/18 16:00 65 12/16/18 16:00 98.0 21 101/41 (61) 99 12/16/18 16:00 Mechanical Ventilator 12/16/18 15:13 69 25 35 12/16/18 14:15 35 12/16/18 13:50 35 12/16/18 13:50 12.0 35 12/16/18 13:30 97.8 65 15 126/83 100 Mechanical Ventilator 12/16/18 13:15 71 14 129/82 99 Mechanical Ventilator 12/16/18 13:00 66 12 122/78 98 Mechanical Ventilator 12/16/18 12:51 68 16 98 12/16/18 12:45 68 17 132/68 99 Mechanical Ventilator 12/16/18 12:40 66 16 121/67 99 Mechanical Ventilator 12/16/18 12:35 69 15 135/71 99 Mechanical Ventilator 12/16/18 12:30 70 18 148/76 98 Mechanical Ventilator 12/16/18 12:28 70 23 35 12/16/18 12:25 97.3 68 16 154/81 99 Mechanical Ventilator 12/16/18 12:05 Mechanical Ventilator 35 12/16/18 12:05 Mechanical Ventilator 35 Laboratory Tests Test 12/16/18 11:29 12/16/18 18:30 Prothrombin Time 12.3 SEC (9.30-11.50) H Prothromb Time International Ratio 1.2 (0.9-1.1) H Activated Partial Thromboplast Time 64 SEC (23-33) H White Blood Count 6.4 K/UL (4.8-10.8) Red Blood Count 3.99 M/UL (4.70-6.10) L Hemoglobin 9.7 G/DL (14.2-18.0) L Hematocrit 31.5 % (42.0-52.0) L Mean Corpuscular Volume 79 FL (80-99) L Mean Corpuscular Hemoglobin 24.4 PG (27.0-31.0) L Mean Corpuscular Hemoglobin Concent 30.9 G/DL (32.0-36.0) L Red Cell Distribution Width 15.9 % (11.6-14.8) H Platelet Count 200 K/UL (150-450) Mean Platelet Volume 6.2 FL (6.5-10.1) L Neutrophils (%) (Auto) 73.3 % (45.0-75.0) Lymphocytes (%) (Auto) 17.4 % (20.0-45.0) L Monocytes (%) (Auto) 8.1 % (1.0-10.0) Eosinophils (%) (Auto) 0.1 % (0.0-3.0) Basophils (%) (Auto) 1.1 % (0.0-2.0) Sodium Level 130 MMOL/L (136-145) L Potassium Level 4.6 MMOL/L (3.5-5.1) Chloride Level 91 MMOL/L (98-107) L Carbon Dioxide Level 29 MMOL/L (21-32) Anion Gap 10 mmol/L (5-15) Blood Urea Nitrogen 64 mg/dL (7-18) H Creatinine 7.0 MG/DL (0.55-1.30) H Estimat Glomerular Filtration Rate 7.9 mL/min (>60) Glucose Level 110 MG/DL (74-106) H Calcium Level 9.0 MG/DL (8.5-10.1) Phosphorus Level 3.8 MG/DL (2.5-4.9) Magnesium Level 2.3 MG/DL (1.5-2.4) Total Bilirubin 0.3 MG/DL (0.2-1.0) Aspartate Amino Transf (AST/SGOT) 14 U/L (15-37) L Alanine Aminotransferase (ALT/SGPT) 11 U/L (12-78) L Alkaline Phosphatase 131 U/L (46-116) H Troponin I 0.030 ng/mL (0.000-0.056) Total Protein 6.3 G/DL (6.4-8.2) L Albumin 1.9 G/DL (3.4-5.0) L Globulin 4.4 g/dL Albumin/Globulin Ratio 0.4 (1.0-2.7) L Microbiology Date/Time Source Procedure Growth Status 11/14/18 15:30 Blood Blood Culture - Final NO GROWTH AFTER 5 DAYS Complete 11/12/18 12:13 Pleural Fluid Fungal Culture - Final Complete 11/12/18 12:13 Pleural Fluid Fungal Culture 1 - Final Complete 10/31/18 20:39 Wound Gram Stain - Final Complete 10/31/18 20:39 Wound Culture - Final Staphylococcus Aureus - Mrsa Complete 10/31/18 21:00 Nasal Nares MRSA Culture - Final Staphylococcus Aureus - Mrsa Complete 11/30/18 17:33 Stool Clostridium difficile Toxin Assay - Final Complete 12/08/18 01:00 Abdomen Gram Stain - Final Complete 12/08/18 01:00 Wound Culture - Final Pseudomonas Aeruginosa Complete Dhruv Huizar DPM December 17, 2018 10:31
[2018-12-17] MEDS ORDERED: Heparin Sod 1000 units/ml 10ml ONE (10:42)
--- NOTE | 2018-12-17 10:44 | Immediate Post-Op Evaluation ---
Immediate Post-Op Evalulation Immediate Post-Op Evalulation Procedure: abdominal aortagram, (B) angiogram, angioplasty Date of Evaluation: December 17, 2018 Time of Evaluation: 16:20 IV Fluids: 1100 LR Blood Products: 0 Estimated Blood Loss: 100 Urinary Output: 0 Blood Pressure Systolic: 136 Blood Pressure Diastolic: 47 Pulse Rate: 72 Respiratory Rate: 20 - Mech Vent O2 Sat by Pulse Oximetry: 100 Temperature (Fahrenheit): 98.1 Pain Score (1-10): 2 Nausea: No Vomiting: No Complications 0 Patient Status: awake, reacts, patent, ventilated, none Hydration Status: adequate Drug: Already On Neel Gonzales MD December 17, 2018 10:44
[2018-12-17] MEDS ORDERED: Lidocaine 1% Plain 30 ml INJ ONE (11:12)
--- NOTE | 2018-12-17 13:31 | Nephrology Progress Note ---
Assessment/Plan Problem List: (1) ESRD (end stage renal disease) on dialysis (2) Foot ulcer (3) CHF (congestive heart failure) Assessment: Ej Fx 20 % (4) Pacemaker (5) Acute respiratory failure Assessment: with Co2 retention (6) G-tube site cellulitis Assessment ESRD with high K and SOB on admit Foot ulcer, likely infected High Troponin likely NSTMI Pacer , Pleural effusion s/p CABGS s/p Liver transplant Plan doing PT , improving next HD 12/18 GT site infection, topical antibiotic Neuro note appreciated placement in process vascular esteban regarding heel ulcer per Dr Mcgill pain med change to dilaudid GT Now has tracheostomy and PEG Adjust BP meds add nitro paste TID Antibiotics by ID per cardio and ID Podiatry and Vascular surgical fu ? DC planning? PRIMARY MD CHANGED TO DR [facility] Subjective ROS Limited/Unobtainable: No Objective Objective Last 24 Hour Vital Signs Date Time Temp Pulse Resp B/P (MAP) Pulse Ox O2 Delivery O2 Flow Rate FiO2 12/17/18 10:34 Mechanical Ventilator 35 12/17/18 10:34 Mechanical Ventilator 35 12/17/18 08:48 70 149/78 12/17/18 08:38 71 28 35 12/17/18 08:00 98.2 69 24 149/78 (101) 98 69 69 12/17/18 08:00 Mechanical Ventilator 12/17/18 08:00 35 12/17/18 08:00 69 12/17/18 07:12 72 17 100 Mechanical Ventilator 35 12/17/18 07:07 69 26 35 12/17/18 07:05 68 24 99 Mechanical Ventilator 35 12/17/18 05:43 105/70 12/17/18 05:20 70 23 35 12/17/18 04:00 98.2 70 22 107/70 (82) 100 70 70 12/17/18 04:00 35 12/17/18 04:00 70 12/17/18 04:00 Mechanical Ventilator 12/17/18 03:08 98.7 12/17/18 03:05 70 23 35 12/17/18 01:04 70 19 35 12/17/18 00:00 70 12/17/18 00:00 Mechanical Ventilator 12/17/18 00:00 98.7 22 90/63 (72) 100 12/16/18 23:08 69 21 35 12/16/18 21:14 73 20 35 12/16/18 21:00 90 105/65 12/16/18 20:00 72 12/16/18 20:00 Mechanical Ventilator 12/16/18 20:00 98.2 20 94/51 (65) 100 12/16/18 20:00 35 12/16/18 19:04 Mechanical Ventilator 35 12/16/18 19:04 Mechanical Ventilator 35 12/16/18 19:03 69 23 35 12/16/18 17:44 101/41 12/16/18 16:46 65 22 35 12/16/18 16:00 35 12/16/18 16:00 65 12/16/18 16:00 98.0 21 101/41 (61) 99 12/16/18 16:00 Mechanical Ventilator 12/16/18 15:13 69 25 35 12/16/18 14:15 35 12/16/18 13:50 35 12/16/18 13:50 12.0 35 12/16/18 13:30 97.8 65 15 126/83 100 Mechanical Ventilator Intake and Output 12/16/18 12/17/18 19:00 07:00 Intake Total 170 ml 300 ml Output Total 1000 ml Balance 170 ml -700 ml Free Water 30 ml 120 ml IV Total 50 ml Tube Feeding 90 ml 180 ml Hemodialysis UF 1000 ml Laboratory Tests 12/16/18 18:30: White Blood Count 6.4, Red Blood Count 3.99L, Hemoglobin 9.7L, Hematocrit 31.5L , Mean Corpuscular Volume 79L, Mean Corpuscular Hemoglobin 24.4L, Mean Corpuscular Hemoglobin Concent 30.9L, Red Cell Distribution Width 15.9H, Platelet Count 200, Mean Platelet Volume 6.2L, Neutrophils (%) (Auto) 73.3, Lymphocytes (%) (Auto) 17.4L, Monocytes (%) (Auto) 8.1, Eosinophils (%) (Auto) 0.1, Basophils (%) (Auto) 1.1, Sodium Level 130L, Potassium Level 4.6, Chloride Level 91L, Carbon Dioxide Level 29, Anion Gap 10, Blood Urea Nitrogen 64H, Creatinine 7.0H, Estimat Glomerular Filtration Rate 7.9, Glucose Level 110H, Calcium Level 9.0, Phosphorus Level 3.8, Magnesium Level 2.3, Total Bilirubin 0.3, Aspartate Amino Transf (AST/SGOT) 14L, Alanine Aminotransferase (ALT/SGPT) 11L, Alkaline Phosphatase 131H, Troponin I 0.030, Total Protein 6.3L, Albumin 1.9L, Globulin 4.4, Albumin/Globulin Ratio 0.4L 12/17/18 12:40: Activated Partial Thromboplast Time 110H Height (Feet): 5 Height (Inches): 4.00 Weight (Pounds): 101 General Appearance: no apparent distress EENT: other - trach Cardiovascular: normal rate Respiratory/Chest: decreased breath sounds Abdomen: soft Objective no other change Nakul Stevens MD December 17, 2018 13:31
--- NOTE | 2018-12-17 14:13 | General Progress Note ---
Assessment/Plan Status: stable Assessment/Plan: Assessment and Recs: # Coagulopathy likely secondary to decreased Vitk dependent cofactors (high INR , PT) --> monitor closely for any evidence of bleeding --> hold off on mixing study at this time unless severe changes noted --> VIT K on prn basis sq can be administered ==> recently has improved inr 1.2-->1.1-->1.2 # Anemia of chronic disease due to underlying chronic medical issues, multifactorial as well as kidney disease --> Anemia workup has been ordered, rule out gi bleed, seen by gi, also reviewed w/u --> HAS BEEN reordered since refusing --> No evidence of hemolysis is noted, peripheral smear has been reviewed. --> Epogen can be consider if hgb downtrends --> Medications have been reviewed --> evaluate with Gi team prn --> transfuse if hgb is < 7 (will trend CBC daily) ==> hgb trend 11.2-->10.9-->10.8-->10.7-->10.2-->9.7-->9.7 # Failure to thrive is likely related to poor overall status, poor functional status --> with multiple decub ulcerations that are noted, seen by id/surgery --> s/p trach as well --> cea is wnl # Acute respiratory failure is now s/p trach to vent --> as per surgery recs # Ground glass opacities present on imaging of lung --> with pleural effusions, s/p drainage at this time --> no evidence for malignancy is noted # Pleural effusion --> s/p thoracentesis # Hyperkalemia --> kayxelate has been given # Renal failure --> per renal recs, appreciated --> getting hd as per schedule # Altered level of consciousness ==> currently as per baseline The timing of this note does not necessarily reflect the time of the patient was seen. Greatly appreciate consultation! Subjective Constitutional: Denies: no symptoms, chills, diaphoresis, fever, malaise, weakness, other HEENT: Denies: no symptoms, eye pain, blurred vision, tearing, double vision, ear pain, ear discharge, nose pain, nose congestion, throat pain, throat swelling, mouth pain, mouth swelling, other Cardiovascular: Denies: no symptoms, chest pain, edema, irregular heart rate, lightheadedness, palpitations, syncope, other Respiratory: Denies: no symptoms, cough, orthopnea, shortness of breath, SOB with excertion, SOB at rest, sputum, stridor, wheezing, other Gastrointestinal/Abdominal: Denies: no symptoms, abdomen distended, abdominal pain, black stools, tarry stools, blood in stool, constipated, diarrhea, difficulty swallowing, nausea, poor appetite, poor fluid intake, rectal bleeding , vomiting, other Genitourinary: Denies: no symptoms, burning, discharge, frequency, flank pain, hematuria, incontinence, pain, urgency, other 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: Denies: no symptoms, anxiety, depressed, emotional problems, headache, numbness, paresthesia, pre-existing deficit, seizure, tingling, tremors, weakness, other Endocrine: Denies: no symptoms, excessive sweating, flushing, intolerance to cold, intolerance to heat, increased hunger, increased thirst, increased urine, unexplained weight gain, unexplained weight loss, other Hematologic/Lymphatic: Denies: no symptoms, anemia, easy bleeding, easy bruising, other Allergies: Coded Allergies: CEPHALEXIN (Unverified Allergy, Unknown, 02/24/14) SULFAMETHOXAZOLE (Unverified Allergy, Unknown, 02/24/14) TRIMETHOPRIM (Unverified Allergy, Unknown, 02/24/14) Subjective 11/30: comfortable, on abx, no complaints, on t-piece 16: to have hd done potentially tomorrow, is more alert/awake 12/02: no major bleeding, hgb remains approx 11, no changes 12/03: no events, breathing mildly better, hgb is improved 12/04: on vent/trach, no major changes, sr ekg 12/10: small amount of secretions, on trach/vent, no issues otherwise 12/11: no major issues, no complaints, labs reviewed, no sig changes 12/13: no events to report, no fevers or chills, awaiting placement 12/14: no changes, no major events to report, no fevers or chills 12/15: pending placement, getting gt feeds and hd as per renal 12/16: labs have been reviewed, cbc noted, no changes 12/17: no events, no fevers, no cp, hgb remains stable Objective Last 24 Hour Vital Signs Date Time Temp Pulse Resp B/P (MAP) Pulse Ox O2 Delivery O2 Flow Rate FiO2 12/17/18 10:34 Mechanical Ventilator 35 12/17/18 10:34 Mechanical Ventilator 35 12/17/18 08:48 70 149/78 12/17/18 08:38 71 28 35 12/17/18 08:00 98.2 69 24 149/78 (101) 98 69 69 12/17/18 08:00 Mechanical Ventilator 12/17/18 08:00 35 12/17/18 08:00 69 12/17/18 07:12 72 17 100 Mechanical Ventilator 35 12/17/18 07:07 69 26 35 12/17/18 07:05 68 24 99 Mechanical Ventilator 35 12/17/18 05:43 105/70 12/17/18 05:20 70 23 35 12/17/18 04:00 98.2 70 22 107/70 (82) 100 70 70 12/17/18 04:00 35 12/17/18 04:00 70 12/17/18 04:00 Mechanical Ventilator 12/17/18 03:08 98.7 12/17/18 03:05 70 23 35 12/17/18 01:04 70 19 35 12/17/18 00:00 70 12/17/18 00:00 Mechanical Ventilator 12/17/18 00:00 98.7 22 90/63 (72) 100 12/16/18 23:08 69 21 35 12/16/18 21:14 73 20 35 12/16/18 21:00 90 105/65 12/16/18 20:00 72 12/16/18 20:00 Mechanical Ventilator 12/16/18 20:00 98.2 20 94/51 (65) 100 12/16/18 20:00 35 12/16/18 19:04 Mechanical Ventilator 35 12/16/18 19:04 Mechanical Ventilator 35 12/16/18 19:03 69 23 35 12/16/18 17:44 101/41 12/16/18 16:46 65 22 35 12/16/18 16:00 35 12/16/18 16:00 65 12/16/18 16:00 98.0 21 101/41 (61) 99 12/16/18 16:00 Mechanical Ventilator 12/16/18 15:13 69 25 35 12/16/18 14:15 35 Intake and Output 12/16/18 12/17/18 18:59 06:59 Intake Total 125 ml 345 ml Output Total 1000 ml Balance 125 ml -655 ml Free Water 30 ml 120 ml IV Total 50 ml Tube Feeding 45 ml 225 ml Hemodialysis UF 1000 ml Laboratory Tests 12/16/18 18:30: White Blood Count 6.4, Red Blood Count 3.99L, Hemoglobin 9.7L, Hematocrit 31.5L , Mean Corpuscular Volume 79L, Mean Corpuscular Hemoglobin 24.4L, Mean Corpuscular Hemoglobin Concent 30.9L, Red Cell Distribution Width 15.9H, Platelet Count 200, Mean Platelet Volume 6.2L, Neutrophils (%) (Auto) 73.3, Lymphocytes (%) (Auto) 17.4L, Monocytes (%) (Auto) 8.1, Eosinophils (%) (Auto) 0.1, Basophils (%) (Auto) 1.1, Sodium Level 130L, Potassium Level 4.6, Chloride Level 91L, Carbon Dioxide Level 29, Anion Gap 10, Blood Urea Nitrogen 64H, Creatinine 7.0H, Estimat Glomerular Filtration Rate 7.9, Glucose Level 110H, Calcium Level 9.0, Phosphorus Level 3.8, Magnesium Level 2.3, Total Bilirubin 0.3, Aspartate Amino Transf (AST/SGOT) 14L, Alanine Aminotransferase (ALT/SGPT) 11L, Alkaline Phosphatase 131H, Troponin I 0.030, Total Protein 6.3L, Albumin 1.9L, Globulin 4.4, Albumin/Globulin Ratio 0.4L 12/17/18 12:40: Activated Partial Thromboplast Time 110H Height (Feet): 5 Height (Inches): 4.00 Weight (Pounds): 101 Objective PE General Appearance: mild distress, moderate distress Lines, tubes and drains: peripheral HEENT: EOMI, thrush, tonsils swollen ++trach Neck: normal inspection Respiratory/Chest: decreased breath sounds, accessory muscle use Cardiovascular/Chest: tachycardia Abdomen: soft, no organomegaly, no mass, ++ peg Extremities: other Skin Exam: warm/dry, rash Neurologic: alert, responsive Zacarias Khoury MD December 17, 2018 14:13
--- NOTE | 2018-12-17 14:15 | History and Physical ---
History of Present Illness General Date patient seen: December 18, 2018 Time patient seen: 13:00 Reason for Hospitalization: Skin Rash/Abscess Present Illness HPI 68 year old man with history of HTN, DM, ESRD on HD who was admitted to [facility] on with right heel wound/eschar + PAD - hospital course complicated by angioedema, acute respiratory failure, pleural effusion s/p thoracentesis, G- tube cellulitis. He has competed vancomycin and ciprofloxacin and is doing well overall. Patient underwent selective RLE angiogram yesterday with SFA/popliteal stenting. We have been asked to take over as primary/hospitalist. Patient reports pain in his right leg. Denies chest pain, dyspnea, palpitations. Allergies: Coded Allergies: CEPHALEXIN (Unverified Allergy, Unknown, 02/24/14) SULFAMETHOXAZOLE (Unverified Allergy, Unknown, 02/24/14) TRIMETHOPRIM (Unverified Allergy, Unknown, 02/24/14) Medication History Scheduled Allopurinol* (Allopurinol*), 100 MG ORAL DAILY, (Reported) Calcium Acetate (Calcium Acetate), 667 MG PO BID, (Reported) Carvedilol* (Carvedilol*), 6.25 MG ORAL EVERY 12 HOURS, (Reported) Midodrine (Midodrine HCl), 5 MG ORAL BEFORE MEALS, (Reported) Nateglinide (Starlix), 120 MG ORAL THREE TIMES A DAY, (Reported) Omeprazole (Omeprazole), 20 MG ORAL BID, (Reported) Rosuvastatin Calcium* (Crestor*), 10 MG ORAL HS, (Reported) Tacrolimus (Tacrolimus), 2 MG PO BID, (Reported) Telmisartan (Telmisartan), 10 MG PO at noon, (Reported) Torsemide* (Demadex*), 100 MG PO DAILY, (Reported) Vitamin B Cmplx/Vit C/Folic AC (Nephro-Lexii Tablet), 1 TAB ORAL DAILY, (Reported ) Scheduled PRN Oxycodone/Acetaminophen 5-325* (Percocet 5-325 Mg Tablet*), 1 TAB ORAL Q4H PRN for For Pain, (Reported) 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 status Full Code Advanced Directive on File Review of Systems Respiratory: Denies: cough Cardiovascular: Denies: chest pain Gastrointestinal: Denies: abdominal pain Musculoskeletal: Denies: back pain Skin: Denies: rash Physical Exam General Appearance: no apparent distress, alert Lines, tubes and drains: trach HEENT: normocephalic, atraumatic, anicteric Neck: normal alignment, supple Respiratory/Chest: lungs clear, normal breath sounds, no respiratory distress Cardiovascular/Chest: normal rate, regular rhythm Abdomen: non tender, soft Extremities: non-tender, other - Right heel ulcer without cellulitic changes Neurologic: alert, responsive Musculoskeletal: normal muscle bulk Last 24 Hour Vital Signs Date Time Temp Pulse Resp B/P (MAP) Pulse Ox O2 Delivery O2 Flow Rate FiO2 12/17/18 10:34 Mechanical Ventilator 35 12/17/18 10:34 Mechanical Ventilator 35 12/17/18 08:48 70 149/78 12/17/18 08:38 71 28 35 12/17/18 08:00 98.2 69 24 149/78 (101) 98 69 69 12/17/18 08:00 Mechanical Ventilator 12/17/18 08:00 35 12/17/18 08:00 69 12/17/18 07:12 72 17 100 Mechanical Ventilator 35 12/17/18 07:07 69 26 35 12/17/18 07:05 68 24 99 Mechanical Ventilator 35 12/17/18 05:43 105/70 12/17/18 05:20 70 23 35 12/17/18 04:00 98.2 70 22 107/70 (82) 100 70 70 12/17/18 04:00 35 12/17/18 04:00 70 12/17/18 04:00 Mechanical Ventilator 12/17/18 03:08 98.7 12/17/18 03:05 70 23 35 12/17/18 01:04 70 19 35 12/17/18 00:00 70 12/17/18 00:00 Mechanical Ventilator 12/17/18 00:00 98.7 22 90/63 (72) 100 12/16/18 23:08 69 21 35 12/16/18 21:14 73 20 35 12/16/18 21:00 90 105/65 12/16/18 20:00 72 12/16/18 20:00 Mechanical Ventilator 12/16/18 20:00 98.2 20 94/51 (65) 100 12/16/18 20:00 35 12/16/18 19:04 Mechanical Ventilator 35 12/16/18 19:04 Mechanical Ventilator 35 12/16/18 19:03 69 23 35 12/16/18 17:44 101/41 12/16/18 16:46 65 22 35 12/16/18 16:00 35 12/16/18 16:00 65 12/16/18 16:00 98.0 21 101/41 (61) 99 12/16/18 16:00 Mechanical Ventilator 12/16/18 15:13 69 25 35 12/16/18 14:15 35 Intake and Output 12/16/18 12/17/18 19:00 07:00 Intake Total 170 ml 300 ml Output Total 1000 ml Balance 170 ml -700 ml Free Water 30 ml 120 ml IV Total 50 ml Tube Feeding 90 ml 180 ml Hemodialysis UF 1000 ml Laboratory Tests Test 12/16/18 18:30 12/17/18 12:40 White Blood Count 6.4 K/UL (4.8-10.8) Red Blood Count 3.99 M/UL (4.70-6.10) L Hemoglobin 9.7 G/DL (14.2-18.0) L Hematocrit 31.5 % (42.0-52.0) L Mean Corpuscular Volume 79 FL (80-99) L Mean Corpuscular Hemoglobin 24.4 PG (27.0-31.0) L Mean Corpuscular Hemoglobin Concent 30.9 G/DL (32.0-36.0) L Red Cell Distribution Width 15.9 % (11.6-14.8) H Platelet Count 200 K/UL (150-450) Mean Platelet Volume 6.2 FL (6.5-10.1) L Neutrophils (%) (Auto) 73.3 % (45.0-75.0) Lymphocytes (%) (Auto) 17.4 % (20.0-45.0) L Monocytes (%) (Auto) 8.1 % (1.0-10.0) Eosinophils (%) (Auto) 0.1 % (0.0-3.0) Basophils (%) (Auto) 1.1 % (0.0-2.0) Sodium Level 130 MMOL/L (136-145) L Potassium Level 4.6 MMOL/L (3.5-5.1) Chloride Level 91 MMOL/L (98-107) L Carbon Dioxide Level 29 MMOL/L (21-32) Anion Gap 10 mmol/L (5-15) Blood Urea Nitrogen 64 mg/dL (7-18) H Creatinine 7.0 MG/DL (0.55-1.30) H Estimat Glomerular Filtration Rate 7.9 mL/min (>60) Glucose Level 110 MG/DL (74-106) H Calcium Level 9.0 MG/DL (8.5-10.1) Phosphorus Level 3.8 MG/DL (2.5-4.9) Magnesium Level 2.3 MG/DL (1.5-2.4) Total Bilirubin 0.3 MG/DL (0.2-1.0) Aspartate Amino Transf (AST/SGOT) 14 U/L (15-37) L Alanine Aminotransferase (ALT/SGPT) 11 U/L (12-78) L Alkaline Phosphatase 131 U/L (46-116) H Troponin I 0.030 ng/mL (0.000-0.056) Total Protein 6.3 G/DL (6.4-8.2) L Albumin 1.9 G/DL (3.4-5.0) L Globulin 4.4 g/dL Albumin/Globulin Ratio 0.4 (1.0-2.7) L Activated Partial Thromboplast Time 110 SEC (23-33) H Height (Feet): 5 Height (Inches): 4.00 Weight (Pounds): 101 Medications Current Medications Medications (Trade) Dose Ordered Sig/Aleks Route PRN Reason Start Time Stop Time Status Last Admin Dose Admin Albuterol/ Ipratropium (Albuterol/ Ipratropium) 3 ml QIDRT HHN 12/17/18 07:00 12/20/18 14:44 12/17/18 07:05 Aspirin (ASA) 162 mg DAILY GT 12/08/18 09:00 12/20/18 08:59 12/17/18 08:47 Atorvastatin Calcium (Lipitor) 10 mg BEDTIME NG 12/01/18 21:00 12/21/18 20:59 12/16/18 21:10 Bacitracin (Bacitracin) 1 applic EVERY 12 HOURS TOPIC 12/11/18 21:00 01/06/19 17:59 12/16/18 21:10 Carvedilol (Coreg) 6.25 mg EVERY 12 HOURS PEG 12/06/18 21:00 01/03/19 20:59 12/17/18 08:48 Ciprofloxacin (Cipro 500mg tab) 500 mg Q24H ORAL 12/10/18 21:00 12/17/18 20:59 12/16/18 21:10 Clotrimazole (Lotrimin) 1 applic BID TOPIC 12/07/18 18:00 01/06/19 17:59 12/16/18 17:43 Dextrose (Dextrose 50%) 25 ml Q30M PRN IV Hypoglycemia 12/01/18 19:30 12/31/18 19:29 Dextrose (Dextrose 50%) 50 ml Q30M PRN IV Hypoglycemia 12/01/18 19:30 12/31/18 19:29 Docusate Sodium (Colace) 100 mg EVERY 8 HOURS PRN GT constipation 11/24/18 18:51 12/20/18 18:50 Escitalopram Oxalate (Lexapro) 10 mg DAILY ORAL 12/14/18 12:45 01/13/19 12:44 12/15/18 09:26 Hydralazine HCl (Apresoline) 10 mg Q6H PRN GT For High Blood Pressure 12/03/18 16:45 01/02/19 16:44 12/07/18 04:47 Hydromorphone HCl (Dilaudid) 1 mg Q4H PRN GT For Pain 12/14/18 15:30 12/21/18 15:29 12/17/18 02:38 Insulin Aspart (NovoLOG) EVERY 6 HOURS SUBQ 12/02/18 00:00 12/31/18 20:59 12/15/18 23:42 Lactulose (Cephulac) 20 gm THREE TIMES A DAY PRN GT Constipation 11/24/18 18:51 12/23/18 18:50 Lansoprazole (Prevacid) 30 mg BID GT 11/20/18 09:00 12/20/18 08:59 12/16/18 17:06 Mirtazapine (Remeron) 7.5 mg BEDTIME GT 12/14/18 21:00 01/13/19 20:59 12/16/18 21:10 Nicotine (Nicoderm) 1 patch Q24H TDERMAL 12/01/18 22:15 12/21/18 22:14 12/16/18 21:15 Nitroglycerin (Nitro-Bid) 1 inch TID@0600,1200,1800 TOPIC 12/07/18 12:00 01/06/19 11:59 12/16/18 05:12 Sevelamer Carbonate (Renvela) 800 mg Q8HR GT 11/20/18 14:00 12/20/18 13:59 12/17/18 05:41 Tacrolimus (Prograf) 2 mg MoWeFr@0000,1200 ORAL 12/07/18 00:00 12/21/18 00:00 12/15/18 23:40 Tacrolimus (Prograf) 2 mg SuTuThSa@0900,2100 ORAL 12/05/18 21:00 01/04/19 20:59 12/17/18 08:50 Assessment/Plan Assessment/Plan: #Right heel diabetic foot ulcer without osteomyelitis #PAD -seen by Podiatry and ID -s/p Vanco x 2 weeks during HD -s/p selective RLE angio with SFA/pop stenting -continue heparin drip #Acute Resp hypercapnic failure s/p trach #Angioedema -continue trach care -Pulm following #End-stage renal disease, on dialysis -HD per Nephrology #Coronary artery disease -continue ASA, Coreg, atorva -cardiology following #Type 2 DM -ISS #Acute metabolic encephalopathy -continue supportive care -Neurology following #history of chronic HCV infection #history of liver transplant -continue Prograf -GI following #S/p PEG with PEG site cellulitis -s/p antibiotics per ID and GI -continue local wound care I spent 45 minutes on this patient's case, and 25 minutes was dedicated to counseling and/or care coordination. I spent an additional 38 minutes on review of medical records including prior outside hospital records, consult notes, progress notes, procedures, imaging, labs, hemodynamics, and other clinical documentation. Dennis Branham MD December 17, 2018 14:15
[2018-12-17] MEDS ORDERED: Cathflo Alteplase 2mg Inj INJ ONE ×2 (14:30→15:00)
[2018-12-17] MEDS ORDERED: Nitroglycerin 2% oint pkt TOPIC ONE (14:31)
[2018-12-17] MEDS ORDERED: Nitroglycerin 50mg/250ml btl 250 ML IV SCH (14:45)
[2018-12-17] MEDS ORDERED: Phenylephrine 10mg/ml Vial ONE ×2 (14:59→15:01)
[2018-12-17 15:08] LABS: BASOPHILS % (AUTO) 0.9 % (0.0-2.0); HEMATOCRIT 35.4 % (42.0-52.0); HEMOGLOBIN 10.9 G/DL (14.2-18.0); LYMPHOCYTES % (AUTO) 13.6 % (20.0-45.0); MEAN CORPUSCULAR VOLUME 81 FL (80-99); MONOCYTES % (AUTO) 8.3 % (1.0-10.0); NEUTROPHILS % (AUTO) 77.2 % (45.0-75.0); PLATELET COUNT 356 K/UL (150-450); RED BLOOD COUNT 4.36 M/UL (4.70-6.10); RED CELL DISTRIBUTION WIDTH 16.5 % (11.6-14.8); WHITE BLOOD COUNT 13.8 K/UL (4.8-10.8)
[2018-12-17] MEDS ORDERED: LR 1000ml 1,000 ML IVLG SCH (15:27)
[2018-12-17 15:29] LABS: ANION GAP 9 mmol/L (5-15); BLOOD UREA NITROGEN 55 mg/dL (7-18); CALCIUM 8.8 MG/DL (8.5-10.1); CARBON DIOXIDE 29 MMOL/L (21-32); CHLORIDE 93 MMOL/L (98-107); CREATININE 6.3 MG/DL (0.55-1.30); POTASSIUM 5.4 MMOL/L (3.5-5.1); SODIUM 131 MMOL/L (136-145)
[2018-12-17] MEDS ORDERED: Labetalol 5mg/ml 20ml vial IV PRN (15:30)
[2018-12-17] MEDS ORDERED: Atropine Sulfate 0.4mg/ml inj IVP PRN (15:30)
[2018-12-17] MEDS ORDERED: DiphenhydrAMINE 50mg/ml Inj IVP PRN (15:30)
[2018-12-17] MEDS ORDERED: fentaNYL 100 mcg/2 mL IV PRN (15:30)
[2018-12-17] MEDS ORDERED: Midazolam 2mg/2ml Inj IVP PRN (15:30)
[2018-12-17] MEDS ORDERED: HYDROcodone/Acetamin 7.5/325 tab ORAL PRN (15:30)
[2018-12-17] MEDS ORDERED: oxyCODONE HCL/Acetaminophen 5/325mg ORAL PRN (15:30)
[2018-12-17] MEDS ORDERED: HYDROcodone/Acetamin 5/325 tab ORAL PRN (15:30)
[2018-12-17] MEDS ORDERED: Hydromorphone 0.5mg/0.5ml inj IVP PRN (15:30)
[2018-12-17] MEDS ORDERED: LORazepam Inj 2mg/ml 1ml IV PRN (15:30)
--- NOTE | 2018-12-17 16:28 | Brief Operative Note ---
Immediate Post Operative Note Operative Note Pre-op Diagnosis: PVD with rest pain and foot ulcer Procedure: selective right leg angio (via right SENIOR STAFF CONSULTANT and AT access); ENVIRONMENTAL SAMPLER/stent of right SFA and popliteal arteries + intra-arterial tPA and NTG Post-op Diagnosis: same as pre-op Findings: consistent w/pre-op dx studies Surgeon: Sea Salmeron Anesthesiologist: Christine Gonzales Anesthesia: general Specimen: none Complications: none Condition: stable Fluids: see anesth. record Estimated Blood Loss: minimal Drains: none Implant(s) used?: Yes - stent in right SFA/popliteal art. Gee Salmeron MD December 17, 2018 16:28
[2018-12-17] MEDS ORDERED: Heparin 5000 units/ml inj IV ONE (16:30)
--- NOTE | 2018-12-17 17:03 | Cardiac Electrophysiology PN ---
Assessment/Plan Assessment/Plan 1. Troponin leak due to renal failure. No CP or SOB 2. S/P CABG. On Coreg 6.25 mg bid, aspirin 162 and Lipitor 3. NSVT in setting of old HI and CABG. EF 55%. No Syncope 4. Congestive heart failure. On hemodialysis 5. S/P R. Medtronic dual chamber pacemaker with Nl Fx. 6. End-stage renal disease, on hemodialysis per Dr. Stevens Vascular access by Dr Salmeron . 7. Multilevel AOD LE's with non-healing Right foot ulcer. Abdominal Angiogram per Dr Salmeron pending today Antibiotic per Dr. Landis. FU by Dr. Huizar 8. History of liver transplant on Prograf 9. Respiratory failure, S/P tracheostomy. 10. Pleural effusion. FU Dr. Mendoza 11. Dysphagia, S/P PEG DW RN Subjective Subjective On the vent via tracheostomy.Undergoing abdominal aortogram for leg pain by Dr. Salmeron . Had HD yesterday Objective Last 24 Hour Vital Signs Date Time Temp Pulse Resp B/P (MAP) Pulse Ox O2 Delivery O2 Flow Rate FiO2 12/17/18 16:30 70 28 116/42 95 Mechanical Ventilator 100 12/17/18 16:20 72 32 116/42 93 Mechanical Ventilator 100 12/17/18 16:15 73 33 145/58 93 Mechanical Ventilator 100 12/17/18 16:10 98.1 73 25 135/34 100 Mechanical Ventilator 60 12/17/18 16:10 72 20 100 12/17/18 16:00 35 12/17/18 16:00 Mechanical Ventilator 12/17/18 15:56 Mechanical Ventilator 35 12/17/18 15:56 Mechanical Ventilator 35 12/17/18 10:34 Mechanical Ventilator 35 12/17/18 10:34 Mechanical Ventilator 35 12/17/18 08:48 70 149/78 12/17/18 08:38 71 28 35 12/17/18 08:00 98.2 69 24 149/78 (101) 98 69 69 12/17/18 08:00 Mechanical Ventilator 12/17/18 08:00 35 12/17/18 08:00 69 12/17/18 07:12 72 17 100 Mechanical Ventilator 35 12/17/18 07:07 69 26 35 12/17/18 07:05 68 24 99 Mechanical Ventilator 35 12/17/18 05:43 105/70 5/2/19 05:20 70 23 35 12/17/18 04:00 98.2 70 22 107/70 (82) 100 70 70 12/17/18 04:00 35 12/17/18 04:00 70 12/17/18 04:00 Mechanical Ventilator 12/17/18 03:08 98.7 12/17/18 03:05 70 23 35 12/17/18 01:04 70 19 35 12/17/18 00:00 70 12/17/18 00:00 Mechanical Ventilator 12/17/18 00:00 98.7 22 90/63 (72) 100 12/16/18 23:08 69 21 35 12/16/18 21:14 73 20 35 12/16/18 21:00 90 105/65 12/16/18 20:00 72 12/16/18 20:00 Mechanical Ventilator 12/16/18 20:00 98.2 20 94/51 (65) 100 12/16/18 20:00 35 12/16/18 19:04 Mechanical Ventilator 35 12/16/18 19:04 Mechanical Ventilator 35 12/16/18 19:03 69 23 35 12/16/18 17:44 101/41 Intake and Output 12/16/18 12/17/18 18:59 06:59 Intake Total 125 ml 345 ml Output Total 1000 ml Balance 125 ml -655 ml Free Water 30 ml 120 ml IV Total 50 ml Tube Feeding 45 ml 225 ml Hemodialysis UF 1000 ml Laboratory Tests Test 12/16/18 18:30 12/17/18 12:40 12/17/18 14:30 12/17/18 15:00 White Blood Count 6.4 K/UL (4.8-10.8) 13.8 K/UL (4.8-10.8) #H Red Blood Count 3.99 M/UL (4.70-6.10) L 4.36 M/UL (4.70-6.10) L Hemoglobin 9.7 G/DL (14.2-18.0) L 10.9 G/DL (14.2-18.0) L Hematocrit 31.5 % (42.0-52.0) L 35.4 % (42.0-52.0) L Mean Corpuscular Volume 79 FL (80-99) L 81 FL (80-99) Mean Corpuscular Hemoglobin 24.4 PG (27.0-31.0) L 24.9 PG (27.0-31.0) L Mean Corpuscular Hemoglobin Concent 30.9 G/DL (32.0-36.0) L 30.7 G/DL (32.0-36.0) L Red Cell Distribution Width 15.9 % (11.6-14.8) H 16.5 % (11.6-14.8) H Platelet Count 200 K/UL (150-450) 356 K/UL (150-450) # Mean Platelet Volume 6.2 FL (6.5-10.1) L 7.5 FL (6.5-10.1) Neutrophils (%) (Auto) 73.3 % (45.0-75.0) 77.2 % (45.0-75.0) H Lymphocytes (%) (Auto) 17.4 % (20.0-45.0) L 13.6 % (20.0-45.0) L Monocytes (%) (Auto) 8.1 % (1.0-10.0) 8.3 % (1.0-10.0) Eosinophils (%) (Auto) 0.1 % (0.0-3.0) 0.0 % (0.0-3.0) Basophils (%) (Auto) 1.1 % (0.0-2.0) 0.9 % (0.0-2.0) Sodium Level 130 MMOL/L (136-145) L 131 MMOL/L (136-145) L Potassium Level 4.6 MMOL/L (3.5-5.1) 5.4 MMOL/L (3.5-5.1) H Chloride Level 91 MMOL/L (98-107) L 93 MMOL/L (98-107) L Carbon Dioxide Level 29 MMOL/L (21-32) 29 MMOL/L (21-32) Anion Gap 10 mmol/L (5-15) 9 mmol/L (5-15) Blood Urea Nitrogen 64 mg/dL (7-18) H 55 mg/dL (7-18) H Creatinine 7.0 MG/DL (0.55-1.30) H 6.3 MG/DL (0.55-1.30) H Estimat Glomerular Filtration Rate 7.9 mL/min (>60) 8.9 mL/min (>60) Glucose Level 110 MG/DL (74-106) H 141 MG/DL (74-106) H Calcium Level 9.0 MG/DL (8.5-10.1) 8.8 MG/DL (8.5-10.1) Phosphorus Level 3.8 MG/DL (2.5-4.9) Magnesium Level 2.3 MG/DL (1.5-2.4) Total Bilirubin 0.3 MG/DL (0.2-1.0) Aspartate Amino Transf (AST/SGOT) 14 U/L (15-37) L Alanine Aminotransferase (ALT/SGPT) 11 U/L (12-78) L Alkaline Phosphatase 131 U/L (46-116) H Troponin I 0.030 ng/mL (0.000-0.056) Total Protein 6.3 G/DL (6.4-8.2) L Albumin 1.9 G/DL (3.4-5.0) L Globulin 4.4 g/dL Albumin/Globulin Ratio 0.4 (1.0-2.7) L Activated Partial Thromboplast Time 110 SEC (23-33) H 46 SEC (23-33) H 45 SEC (23-33) H Objective HEAD AND NECK: No JVD. Tracheostomy intact LUNGS: Clear CARDIOVASCULAR: Irregular S1 and S2 with no gallop. Sternotomy is intact Pacemaker in the right subclavian ABDOMEN: Soft.PEG in place EXTREMITIES: 1+ pitting edema Shivam Sharpe MD December 17, 2018 17:03
[2018-12-17] MEDS ORDERED: Heparin 25,000u/D5W 500ml 500 ML IV SCH ×2 (17:30)
[2018-12-17 18:30] LABS: BASOPHILS % (AUTO) 1.1 % (0.0-2.0); HEMATOCRIT 29.8 % (42.0-52.0); HEMOGLOBIN 9.5 G/DL (14.2-18.0); LYMPHOCYTES % (AUTO) 9.2 % (20.0-45.0); MEAN CORPUSCULAR VOLUME 78 FL (80-99); MONOCYTES % (AUTO) 10.7 % (1.0-10.0); NEUTROPHILS % (AUTO) 79.1 % (45.0-75.0); PLATELET COUNT 214 K/UL (150-450); RED BLOOD COUNT 3.83 M/UL (4.70-6.10); RED CELL DISTRIBUTION WIDTH 15.7 % (11.6-14.8); WHITE BLOOD COUNT 11.9 K/UL (4.8-10.8)
--- NOTE | 2018-12-17 19:18 | Neurology Progress Note ---
Interim History Interim History Interim History Mr. Restrepo feels relatively well. He is subdued today. He is breathing well. He has not had any weaning trial today. He feels generally weaker. His right foot is less painful. The mind has been clear. He has not walked yet. The right upper extremity is less swollen and less painful. He denies any new neurologic symptoms. Review of Systems Neuro Review of Systems Benign. Objective Physical Exam Last Vital Signs Date Time Temp Pulse Resp B/P (MAP) Pulse Ox O2 Delivery O2 Flow Rate FiO2 12/17/18 18:08 114/54 12/17/18 17:15 72 23 80 12/17/18 16:55 98.9 93 Mechanical Ventilator 12/16/18 13:50 12.0 Laboratory Tests Test 12/17/18 12:40 12/17/18 14:30 12/17/18 15:00 12/17/18 18:00 Activated Partial Thromboplast Time 110 SEC (23-33) H 46 SEC (23-33) H 45 SEC (23-33) H White Blood Count 13.8 K/UL (4.8-10.8) #H 11.9 K/UL (4.8-10.8) H Red Blood Count 4.36 M/UL (4.70-6.10) L 3.83 M/UL (4.70-6.10) L Hemoglobin 10.9 G/DL (14.2-18.0) L 9.5 G/DL (14.2-18.0) L Hematocrit 35.4 % (42.0-52.0) L 29.8 % (42.0-52.0) L Mean Corpuscular Volume 81 FL (80-99) 78 FL (80-99) L Mean Corpuscular Hemoglobin 24.9 PG (27.0-31.0) L 24.7 PG (27.0-31.0) L Mean Corpuscular Hemoglobin Concent 30.7 G/DL (32.0-36.0) L 31.8 G/DL (32.0-36.0) L Red Cell Distribution Width 16.5 % (11.6-14.8) H 15.7 % (11.6-14.8) H Platelet Count 356 K/UL (150-450) # 214 K/UL (150-450) Mean Platelet Volume 7.5 FL (6.5-10.1) 6.3 FL (6.5-10.1) L Neutrophils (%) (Auto) 77.2 % (45.0-75.0) H 79.1 % (45.0-75.0) H Lymphocytes (%) (Auto) 13.6 % (20.0-45.0) L 9.2 % (20.0-45.0) L Monocytes (%) (Auto) 8.3 % (1.0-10.0) 10.7 % (1.0-10.0) H Eosinophils (%) (Auto) 0.0 % (0.0-3.0) 0.0 % (0.0-3.0) Basophils (%) (Auto) 0.9 % (0.0-2.0) 1.1 % (0.0-2.0) Sodium Level 131 MMOL/L (136-145) L Potassium Level 5.4 MMOL/L (3.5-5.1) H Chloride Level 93 MMOL/L (98-107) L Carbon Dioxide Level 29 MMOL/L (21-32) Anion Gap 9 mmol/L (5-15) Blood Urea Nitrogen 55 mg/dL (7-18) H Creatinine 6.3 MG/DL (0.55-1.30) H Estimat Glomerular Filtration Rate 8.9 mL/min (>60) Glucose Level 141 MG/DL (74-106) H Calcium Level 8.8 MG/DL (8.5-10.1) Neurologic Exam Objective PHYSICAL EXAMINATION: GENERAL: He is a well-developed and well-nourished, pleasant gentleman, lying in bed connected to a ventilator via a tracheostomy. HEAD: Normocephalic and atraumatic. EENT: Examination benign. NECK: No neck rigidity was observed. He did have a tracheostomy. NEUROLOGICAL EXAMINATION: MENTAL STATUS EXAMINATION: He was somnolent but could be aroused. When aroused, he was awake but not alert. He was unable to cooperate for further mental status testing. SPEECH: Could not be tested, but he was able to mouth words relatively well. LANGUAGE: He was able to comprehend and express himself relatively well. CRANIAL NERVES EXAMINATION: II: The visual mckeon were intact to confrontation testing. III, IV & : The external ocular movements were full and the pupils 3 mm in diameter, equal, round, regular, and reactive sluggishly to light. V: He had normal facial sensations, and the temporales, masseters, and pterygoids functioned normally. VII: He had normal facial expressions and no facial asymmetry. VIII: Hearing was decreased bilaterally with worse hearing on the left side compared to the right. IX: The palate moved symmetrically on phonation. X: Could not be tested. XI: The sternocleidomastoids and trapezii functioned normally. XII: The tongue was in the midline without any fasciculations or atrophy. MOTOR SYSTEM: The tone was normal in all four extremities. Examination of muscle mass revealed generalized muscle wasting. Examination of power revealed G 5/5 power except for G 4+/5 power in the iliopsoas muscles bilaterally. SENSORY EXAMINATION: He had intact sensations to light touch. Other sensory modalities could not be tested adequately. REFLEXES: 1+ and bilaterally symmetrical at the biceps, triceps, brachioradialis , and knees, 0 at both ankles. The plantar responses were flexor bilaterally. COORDINATION: He performed well on [id number] testing. STANCE & GAIT: Were deferred. Impression/Recommendations Diagnostic Impression 1. Mr. Gregg Restrepo is a 68-year-old, right-handed, gentleman with past history of multiple medical problems including hypertension, diabetes mellitus, end-stage renal disease for which he is hemodialysis dependent, prior episodes of sepsis, and prior episodes of encephalopathy, who was admitted to [facility] on October 31, 2018. Following that, he has had a stormy hospital course including pneumonia and sepsis, right foot infection, respiratory failure for which he has needed tracheostomy and in addition he has exhibited an alteration in his mental state with some waxing and waning of his mental state. 2. He feels relatively well. He is subdued today. He is breathing well. He has not had any weaning trial today. He feels generally weaker. His right foot is less painful. The mind has been clear. He has not walked yet. The right upper extremity is less swollen and less painful. He denies any new neurologic symptoms. 3. On neurological examination, at this time, he is fully oriented, has mild problems with recent and remote memory, normal visuospatial function, minimally impaired higher cognitive function. He is able to comprehend and express himself well. He does have mild G 4+/5 weakness in the iliopsoas muscles bilaterally, globally diminished deep tendon reflexes with loss of ankle jerks, but no definite focal or lateralizing neurological findings. 4. His latest laboratory data on my initial evaluation revealed that he was anemic with a hemoglobin of 10.8 G. His last blood gas performed on 11/14/2018 revealed that he had a pCO2 elevated at 56.4 with a normal pO2 of 88.3 and normal pH of 7.37. His latest chemistry panel revealed that he was mildly hyponatremic with a sodium of 130, and had a chloride of 90. The BUN was elevated at 75, creatinine elevated at 7.4, glucose elevated at 156, Hemoglobin A1c elevated at 6.9%, Alkaline phosphatase elevated at 131, and ProBNP greater than 35,000. His last B12 level on 11/07/2018 was 723. His last folate on was 18.6. His last TSH on 12/06/2018 was 4.82, which is minimally elevated. 5. The CT scan of the brain performed on 11/10/2018 was benign for acute intracranial pathology. 6. The EEG done on 12/08/18 revealed left temporal dysfunction. 7. The patient's history and neurological examination are most consistent with mild multifactorial encephalopathy, which apparently waxes and wanes, but no definite focal neurological dysfunction. His encephalopathy is worse today. 8. He tells me that he had a brain bleed many years ago. I did review his imaging done at [facility] a few years ago and he had closed head injuries with subarachnoid and subdural blood in the past. Recommendations 1. Continue present management. 2. Continue to correct the patient's toxic metabolic imbalances. 3. Mobilize with PT/OT. 4. Consider getting ENT evaluation for worsening hearing. 5. Observe closely. Pantera Cool M.D., M.S.P.H. Pantera Cool MD December 17, 2018 19:18
--- NOTE | 2018-12-17 22:05 | Psych Consult Progress Note ---
Psychiatry Progress Note Psychiatry Progress Note Subjective the pt cont to be anxious. the pt is able to understand, process and communicate rationally Medications Current Medications Medications (Trade) Dose Ordered Sig/Aleks Route PRN Reason Start Time Stop Time Status Last Admin Dose Admin Albuterol/ Ipratropium (Albuterol/ Ipratropium) 3 ml QIDRT HHN 12/17/18 07:00 12/20/18 14:44 12/17/18 19:36 Aspirin (ASA) 162 mg DAILY GT 12/08/18 09:00 12/20/18 08:59 12/17/18 08:47 Atorvastatin Calcium (Lipitor) 10 mg BEDTIME NG 12/01/18 21:00 12/21/18 20:59 12/17/18 21:08 Bacitracin (Bacitracin) 1 applic EVERY 12 HOURS TOPIC 12/11/18 21:00 01/06/19 17:59 12/17/18 21:10 Carvedilol (Coreg) 6.25 mg EVERY 12 HOURS PEG 12/06/18 21:00 01/03/19 20:59 12/17/18 08:48 Clotrimazole (Lotrimin) 1 applic BID TOPIC 12/07/18 18:00 01/06/19 17:59 12/17/18 18:08 Dextrose (Dextrose 50%) 25 ml Q30M PRN IV Hypoglycemia 12/01/18 19:30 12/31/18 19:29 Dextrose (Dextrose 50%) 50 ml Q30M PRN IV Hypoglycemia 12/01/18 19:30 12/31/18 19:29 Docusate Sodium (Colace) 100 mg EVERY 8 HOURS PRN GT constipation 11/24/18 18:51 12/20/18 18:50 Escitalopram Oxalate (Lexapro) 10 mg DAILY GT 12/18/18 09:00 01/17/19 08:59 Heparin Sodium/ Dextrose 500 ml @ 36.904 mls/ hr ADJUST PER PROTOCOL IV 12/17/18 17:30 01/16/19 17:29 12/17/18 17:56 Hydralazine HCl (Apresoline) 10 mg Q6H PRN GT For High Blood Pressure 12/03/18 16:45 01/02/19 16:44 12/07/18 04:47 Hydromorphone HCl (Dilaudid) 1 mg Q4H PRN GT For Pain 12/14/18 15:30 12/21/18 15:29 12/17/18 02:38 Insulin Aspart (NovoLOG) EVERY 6 HOURS SUBQ 12/02/18 00:00 12/31/18 20:59 12/15/18 23:42 Lactulose (Cephulac) 20 gm THREE TIMES A DAY PRN GT Constipation 11/24/18 18:51 12/23/18 18:50 Lansoprazole (Prevacid) 30 mg BID GT 11/20/18 09:00 12/20/18 08:59 12/17/18 18:08 Mirtazapine (Remeron) 7.5 mg BEDTIME GT 12/14/18 21:00 01/13/19 20:59 12/17/18 21:08 Nicotine (Nicoderm) 1 patch Q24H TDERMAL 12/01/18 22:15 12/21/18 22:14 12/17/18 21:11 Nitroglycerin 250 ml @ 0 mls/hr Q24H IV 12/17/18 14:45 01/16/19 14:44 Nitroglycerin (Nitro-Bid) 1 inch TID@0600,1200,1800 TOPIC 12/07/18 12:00 01/06/19 11:59 12/17/18 18:08 Sevelamer Carbonate (Renvela) 800 mg Q8HR GT 11/20/18 14:00 12/20/18 13:59 12/17/18 21:11 Tacrolimus (Prograf) 2 mg MoWeFr@0000,1200 ORAL 12/07/18 00:00 12/21/18 00:00 12/15/18 23:40 Tacrolimus (Prograf) 2 mg SuTuThSa@0900,2100 ORAL 12/17/18 21:00 01/16/19 20:59 12/17/18 21:13 Allergies: Coded Allergies: CEPHALEXIN (Unverified Allergy, Unknown, 02/24/14) SULFAMETHOXAZOLE (Unverified Allergy, Unknown, 02/24/14) TRIMETHOPRIM (Unverified Allergy, Unknown, 02/24/14) Objective Data Height (Feet): 5 Height (Inches): 4.00 Weight (Pounds): 226 General Appearance: WD/WN, no apparent distress, alert, alert oriented x3 Appearance: disheveled Behavior Mannerisms: good eye contact Mental Status Exam - Mood: anxious Speech: aphasic Mental Status Exam - Thought P: goal-directed Mental Status Exam - Suicidal: not present Assessment/Plan Problem List: (1) Encephalopathy acute ICD Codes: G93.40 - Encephalopathy, unspecified SNOMED: 87599756, [id number] Status: stable, progressing Assessment/Plan: lexapro 10mg po qam remeron 7.5mg po qhs the pt has capacity to make decisions. Jeffrey Lala MD December 17, 2018 22:05
[2018-12-18] VITALS (12 sets, daily range): BP systolic 100–148; BP diastolic 37–80
[2018-12-18 04:49] LABS: BASOPHILS % (AUTO) 0.8 % (0.0-2.0); EOSINOPHILS % (AUTO) 0.1 % (0.0-3.0); HEMATOCRIT 30.9 % (42.0-52.0); HEMOGLOBIN 9.5 G/DL (14.2-18.0); LYMPHOCYTES % (AUTO) 15.6 % (20.0-45.0); MEAN CORPUSCULAR VOLUME 80 FL (80-99); MONOCYTES % (AUTO) 12.5 % (1.0-10.0); NEUTROPHILS % (AUTO) 71.1 % (45.0-75.0); PLATELET COUNT 210 K/UL (150-450); RED BLOOD COUNT 3.87 M/UL (4.70-6.10); RED CELL DISTRIBUTION WIDTH 16.2 % (11.6-14.8); WHITE BLOOD COUNT 6.9 K/UL (4.8-10.8)
[2018-12-18 05:04] LABS: ALANINE AMINOTRANSFERASE 10 U/L (12-78); ALBUMIN/GLOBULIN RATIO 0.4 (1.0-2.7); ALKALINE PHOSPHATASE 158 U/L (46-116); ANION GAP 9 mmol/L (5-15); ASPARTATE AMINO TRANSFERASE 17 U/L (15-37); BILIRUBIN,TOTAL 0.3 MG/DL (0.2-1.0); BLOOD UREA NITROGEN 60 mg/dL (7-18); CALCIUM 8.6 MG/DL (8.5-10.1); CARBON DIOXIDE 29 MMOL/L (21-32); CHLORIDE 93 MMOL/L (98-107); CREATININE 6.7 MG/DL (0.55-1.30); PHOSPHORUS 5.4 MG/DL (2.5-4.9); POTASSIUM 4.8 MMOL/L (3.5-5.1); SODIUM 131 MMOL/L (136-145)
[2018-12-18] MEDS: Renvela 800mg Pkt GT SCH ×3 (05:43→21:26)
[2018-12-18] MEDS: NovoLOG Insulin Flexpen SUBQ SCH ×5 (05:44→23:47)
[2018-12-18] MEDS: Nitroglycerin 2% oint pkt TOPIC SCH ×4 (05:44→18:08)
[2018-12-18] MEDS ORDERED: Midazolam 2mg/2ml Inj ONE (07:07)
[2018-12-18] MEDS ORDERED: fentaNYL 100 mcg/2 mL IV ONE (07:07)
[2018-12-18] MEDS: Albuterol/Ipratropium 3ml neb HHN SCH ×4 (07:20→19:30)
--- NOTE | 2018-12-18 07:20 | Anethesia Preoperative Eval ---
Anesthesia Pre-op PMH/ROS General Date of Evaluation: December 18, 2018 Time of Evaluation: 07:16 Anesthesiologist: Soco Landaverde CRNA ASA Score: ASA 4 Mallampati Score Class I : Soft palate, uvula, fauces, pillars visible Class II: Soft palate, uvula, fauces visible Class III: Soft palate, base of uvula visible Class IV: Only hard plate visible Mallampati Classification: Class IV Surgeon: Faviola Diagnosis: PVD, ESRD, diaysis dependent Surgical Procedure: RT arm fistulogram, possible angioplasty, stent placement, dialysis cathete Anesthesia History: none Family History: no anesthesia problems Allergies: Coded Allergies: CEPHALEXIN (Unverified Allergy, Unknown, 02/24/14) SULFAMETHOXAZOLE (Unverified Allergy, Unknown, 02/24/14) TRIMETHOPRIM (Unverified Allergy, Unknown, 02/24/14) Medications: see eMAR Patient NPO?: Yes NPO Date: December 17, 2018 NPO Time: 1200 Past Medical History Cardiovascular: Reports: HTN, CAD, [place] - NSTEMI, arrhythmia - pacemaker; CHF Ef 20-25% Pulmonary: Reports: other - Respiratory failure, trach/ventilated Gastrointestinal/Genitourinary: Reports: GERD, ESRD - HD dependent, other - dysphagia, g-tube 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: Reports: depression/anxiety Endocrine: Reports: DM Hematology/Immune: Reports: anemia Musculoskeletal/Integumentary: Reports: edema Other: obesity Anesthesia Pre-op Phys. Exam Physician Exam Last Vital Signs Date Time Temp Pulse Resp B/P (MAP) Pulse Ox O2 Delivery O2 Flow Rate FiO2 12/18/18 05:44 102/58 12/18/18 05:11 70 23 35 12/18/18 04:00 Mechanical Ventilator 12/18/18 04:00 98.4 100 12/16/18 13:50 12.0 Airway Exam Mallampati Score: Class IV Anesthesia Pre-op A/P Labs Hematology Test 12/17/18 15:00 12/17/18 18:00 12/18/18 04:00 White Blood Count 13.8 K/UL (4.8-10.8) #H 11.9 K/UL (4.8-10.8) H 6.9 K/UL (4.8-10.8) Red Blood Count 4.36 M/UL (4.70-6.10) L 3.83 M/UL (4.70-6.10) L 3.87 M/UL (4.70-6.10) L Hemoglobin 10.9 G/DL (14.2-18.0) L 9.5 G/DL (14.2-18.0) L 9.5 G/DL (14.2-18.0) L Hematocrit 35.4 % (42.0-52.0) L 29.8 % (42.0-52.0) L 30.9 % (42.0-52.0) L Mean Corpuscular Volume 81 FL (80-99) 78 FL (80-99) L 80 FL (80-99) Mean Corpuscular Hemoglobin 24.9 PG (27.0-31.0) L 24.7 PG (27.0-31.0) L 24.6 PG (27.0-31.0) L Mean Corpuscular Hemoglobin Concent 30.7 G/DL (32.0-36.0) L 31.8 G/DL (32.0-36.0) L 30.8 G/DL (32.0-36.0) L Red Cell Distribution Width 16.5 % (11.6-14.8) H 15.7 % (11.6-14.8) H 16.2 % (11.6-14.8) H Platelet Count 356 K/UL (150-450) # 214 K/UL (150-450) 210 K/UL (150-450) Mean Platelet Volume 7.5 FL (6.5-10.1) 6.3 FL (6.5-10.1) L 6.7 FL (6.5-10.1) Neutrophils (%) (Auto) 77.2 % (45.0-75.0) H 79.1 % (45.0-75.0) H 71.1 % (45.0-75.0) Lymphocytes (%) (Auto) 13.6 % (20.0-45.0) L 9.2 % (20.0-45.0) L 15.6 % (20.0-45.0) L Monocytes (%) (Auto) 8.3 % (1.0-10.0) 10.7 % (1.0-10.0) H 12.5 % (1.0-10.0) H Eosinophils (%) (Auto) 0.0 % (0.0-3.0) 0.0 % (0.0-3.0) 0.1 % (0.0-3.0) Basophils (%) (Auto) 0.9 % (0.0-2.0) 1.1 % (0.0-2.0) 0.8 % (0.0-2.0) Coagulation Test 12/17/18 12:40 12/17/18 14:30 12/17/18 15:00 12/17/18 23:56 Activated Partial Thromboplast Time 110 SEC (23-33) H 46 SEC (23-33) H 45 SEC (23-33) H 83 SEC (23-33) H Test 12/18/18 04:00 Activated Partial Thromboplast Time 91 SEC (23-33) H Chemistry Test 12/17/18 15:00 12/18/18 04:00 Sodium Level 131 MMOL/L (136-145) L 131 MMOL/L (136-145) L Potassium Level 5.4 MMOL/L (3.5-5.1) H 4.8 MMOL/L (3.5-5.1) Chloride Level 93 MMOL/L (98-107) L 93 MMOL/L (98-107) L Carbon Dioxide Level 29 MMOL/L (21-32) 29 MMOL/L (21-32) Anion Gap 9 mmol/L (5-15) 9 mmol/L (5-15) Blood Urea Nitrogen 55 mg/dL (7-18) H 60 mg/dL (7-18) H Creatinine 6.3 MG/DL (0.55-1.30) H 6.7 MG/DL (0.55-1.30) H Estimat Glomerular Filtration Rate 8.9 mL/min (>60) 8.3 mL/min (>60) Glucose Level 141 MG/DL (74-106) H 123 MG/DL (74-106) H Calcium Level 8.8 MG/DL (8.5-10.1) 8.6 MG/DL (8.5-10.1) Phosphorus Level 5.4 MG/DL (2.5-4.9) H Magnesium Level 2.2 MG/DL (1.8-2.4) Total Bilirubin 0.3 MG/DL (0.2-1.0) Aspartate Amino Transf (AST/SGOT) 17 U/L (15-37) Alanine Aminotransferase (ALT/SGPT) 10 U/L (12-78) L Alkaline Phosphatase 158 U/L (46-116) H C-Reactive Protein, Quantitative 18.1 mg/dL (0.00-0.90) H Pro-B-Type Natriuretic Peptide > 04411 pg/mL (0-125) H Total Protein 6.5 G/DL (6.4-8.2) Albumin 2.0 G/DL (3.4-5.0) L Globulin 4.5 g/dL Albumin/Globulin Ratio 0.4 (1.0-2.7) Soco Chase CRNA December 18, 2018 07:20
[2018-12-18] MEDS: Heparin 25,000u/D5W 500ml 500 ML IV SCH ×2 (07:58→21:42)
[2018-12-18] MEDS: Carvedilol 6.25mg Tab PEG SCH ×2 (08:51→21:25)
[2018-12-18] MEDS: Aspirin Baby 81mg GT SCH (08:51)
[2018-12-18] MEDS: Bacitracin Oint UD TOPIC SCH ×2 (09:00→21:25)
--- NOTE | 2018-12-18 10:16 | General Progress Note ---
Assessment/Plan Problem List: (1) Transplant ICD Codes: Z94.9 - Transplanted organ and tissue status, unspecified SNOMED: 489487827 (2) HTN (hypertension) ICD Codes: I10 - Essential (primary) hypertension SNOMED: 80844448 (3) Pacemaker ICD Codes: Z95.0 - Presence of cardiac pacemaker SNOMED: 440854042 (4) CHF (congestive heart failure) ICD Codes: I50.9 - Heart failure, unspecified SNOMED: 98369513 (5) DM (diabetes mellitus) ICD Codes: E11.9 - Type 2 diabetes mellitus without complications SNOMED: 32406752 (6) Foot ulcer ICD Codes: L97.509 - Non-pressure chronic ulcer of other part of unspecified foot with unspecified severity SNOMED: 72191644 Qualifiers: Qualified Codes: L97.511 - Non-pressure chronic ulcer of other part of right foot limited to breakdown of skin (7) ESRD (end stage renal disease) on dialysis ICD Codes: N18.6 - End stage renal disease; Z99.2 - Dependence on renal dialysis SNOMED: 145399887 Status: stable, progressing Assessment/Plan: History of liver transplant, currently on Prograf C. difficile negative status post tracheostomy and PEG Infected G-tube site, fu ID recs would care cx >> GRAM NEGATIVE BACILLUS GT site care BID/prn topical abx around GT site per ID HD per nephro cont tacrolimus prn transfusions ppi zofran prn bowel regimen follow labs supportive care going for fistulogram by Dr. Rojas today Subjective ROS Limited/Unobtainable: No Allergies: Coded Allergies: CEPHALEXIN (Unverified Allergy, Unknown, 02/24/14) SULFAMETHOXAZOLE (Unverified Allergy, Unknown, 02/24/14) TRIMETHOPRIM (Unverified Allergy, Unknown, 02/24/14) Subjective he pulled his NGT again Objective Last 24 Hour Vital Signs Date Time Temp Pulse Resp B/P (MAP) Pulse Ox O2 Delivery O2 Flow Rate FiO2 12/18/18 09:25 69 28 35 12/18/18 08:00 Mechanical Ventilator 12/18/18 08:00 97.9 71 20 148/80 (102) 100 70 62 12/18/18 08:00 69 12/18/18 08:00 35 12/18/18 07:28 69 16 100 Mechanical Ventilator 35 12/18/18 07:18 66 22 100 Mechanical Ventilator 35 12/18/18 07:17 67 23 35 12/18/18 05:44 102/58 12/18/18 05:11 70 23 35 12/18/18 04:00 Mechanical Ventilator 12/18/18 04:00 35 12/18/18 04:00 98.4 71 20 100/58 (72) 100 60 62 12/18/18 03:34 70 12/18/18 03:20 69 23 60 12/18/18 01:24 69 22 80 12/18/18 00:00 98.4 62 24 107/56 (73) 100 59 60 12/18/18 00:00 Mechanical Ventilator 12/17/18 23:34 72 12/17/18 23:09 73 22 80 12/17/18 21:35 70 21 80 12/17/18 21:00 68 97/52 12/17/18 20:00 98.6 69 16 97/52 (67) 100 65 64 12/17/18 20:00 Mechanical Ventilator 12/17/18 20:00 35 12/17/18 19:40 68 16 100 Mechanical Ventilator 35 12/17/18 19:34 68 22 100 Mechanical Ventilator 35 12/17/18 19:33 68 19 80 12/17/18 19:12 69 12/17/18 18:08 114/54 12/17/18 17:15 72 23 80 12/17/18 17:01 72 12/17/18 16:55 98.9 74 22 114/54 93 Mechanical Ventilator 100 12/17/18 16:55 100 12/17/18 16:40 71 21 99/50 95 Mechanical Ventilator 100 12/17/18 16:30 99.2 72 21 108/31 (56) 95 72 69 12/17/18 16:30 70 28 116/42 95 Mechanical Ventilator 100 12/17/18 16:20 72 32 116/42 93 Mechanical Ventilator 100 12/17/18 16:15 73 33 145/58 93 Mechanical Ventilator 100 12/17/18 16:10 98.1 73 25 135/34 100 Mechanical Ventilator 60 12/17/18 16:10 72 20 100 12/17/18 16:09 100 12/17/18 16:00 35 12/17/18 16:00 Mechanical Ventilator 12/17/18 15:56 Mechanical Ventilator 35 12/17/18 15:56 Mechanical Ventilator 35 12/17/18 10:34 Mechanical Ventilator 35 12/17/18 10:34 Mechanical Ventilator 35 Intake and Output 12/17/18 12/18/18 19:00 07:00 Intake Total 1136.904 ml 50 ml Output Total 100 ml Balance 1036.904 ml 50 ml Free Water 50 ml IV Total 1136.904 ml Estimated Blood Loss 100 ml Laboratory Tests 12/17/18 12:40: Activated Partial Thromboplast Time 110H 12/17/18 14:30: Activated Partial Thromboplast Time 46H 12/17/18 15:00: Activated Partial Thromboplast Time 45H, White Blood Count 13.8#H, Red Blood Count 4.36L, Hemoglobin 10.9L, Hematocrit 35.4L, Mean Corpuscular Volume 81, Mean Corpuscular Hemoglobin 24.9L, Mean Corpuscular Hemoglobin Concent 30.7L, Red Cell Distribution Width 16.5H, Platelet Count 356#, Mean Platelet Volume 7.5 , Neutrophils (%) (Auto) 77.2H, Lymphocytes (%) (Auto) 13.6L, Monocytes (%) ( Auto) 8.3, Eosinophils (%) (Auto) 0.0, Basophils (%) (Auto) 0.9, Sodium Level 131L, Potassium Level 5.4H, Chloride Level 93L, Carbon Dioxide Level 29, Anion Gap 9, Blood Urea Nitrogen 55H, Creatinine 6.3H, Estimat Glomerular Filtration Rate 8.9, Glucose Level 141H, Calcium Level 8.8 12/17/18 18:00: White Blood Count 11.9H, Red Blood Count 3.83L, Hemoglobin 9.5L, Hematocrit 29.8L, Mean Corpuscular Volume 78L, Mean Corpuscular Hemoglobin 24.7L, Mean Corpuscular Hemoglobin Concent 31.8L, Red Cell Distribution Width 15.7H, Platelet Count 214, Mean Platelet Volume 6.3L, Neutrophils (%) (Auto) 79.1H, Lymphocytes (%) (Auto) 9.2L, Monocytes (%) (Auto) 10.7H, Eosinophils (%) (Auto) 0.0, Basophils (%) (Auto) 1.1 12/17/18 23:56: Activated Partial Thromboplast Time 83H 12/18/18 04:00: Activated Partial Thromboplast Time 91H, White Blood Count 6.9, Red Blood Count 3.87L, Hemoglobin 9.5L, Hematocrit 30.9L, Mean Corpuscular Volume 80, Mean Corpuscular Hemoglobin 24.6L, Mean Corpuscular Hemoglobin Concent 30.8L, Red Cell Distribution Width 16.2H, Platelet Count 210, Mean Platelet Volume 6.7, Neutrophils (%) (Auto) 71.1, Lymphocytes (%) (Auto) 15.6L, Monocytes (%) (Auto) 12.5H, Eosinophils (%) (Auto) 0.1, Basophils (%) (Auto) 0.8, Sodium Level 131L, Potassium Level 4.8, Chloride Level 93L, Carbon Dioxide Level 29, Anion Gap 9, Blood Urea Nitrogen 60H, Creatinine 6.7H, Estimat Glomerular Filtration Rate 8.3 , Glucose Level 123H, Calcium Level 8.6, Phosphorus Level 5.4H, Magnesium Level 2.2, Total Bilirubin 0.3, Aspartate Amino Transf (AST/SGOT) 17, Alanine Aminotransferase (ALT/SGPT) 10L, Alkaline Phosphatase 158H, C-Reactive Protein, Quantitative 18.1H, Pro-B-Type Natriuretic Peptide > 06857Y, Total Protein 6.5, Albumin 2.0L, Globulin 4.5, Albumin/Globulin Ratio 0.4L Height (Feet): 5 Height (Inches): 4.00 Weight (Pounds): 226 General Appearance: alert EENT: normal ENT inspection Neck: supple Cardiovascular: normal rate Respiratory/Chest: decreased breath sounds Abdomen: normal bowel sounds, non tender, soft Extremities: non-tender Jorge Escalera MD December 18, 2018 10:16
[2018-12-18] MEDS: HYDROmorphone 2mg tab GT PRN ×3 (10:53→22:10)
--- NOTE | 2018-12-18 11:38 | Podiatric Progress Note ---
Assessment/Plan Patient Gregg Restrepo is a 68 year old male who was admitted on Oct 31, 2018 at 19:13 with Problems: (1) Onychocryptosis (2) Inflammation of toe (3) DM (diabetes mellitus) (4) ESRD (end stage renal disease) on dialysis (5) Foot ulcer Assessment/Plan surgical debridement to the R Heel utilizing sharp debridement down to subq/ fat pad layer. wound was flushed with NS and order was given for santyl application qd. elongated nails were debrided x 10 Subjective Reason for consult R Heel ulcer Procedure Performed surgical excision of R Heel ulcer Allergies: Coded Allergies: CEPHALEXIN (Unverified Allergy, Unknown, 02/24/14) SULFAMETHOXAZOLE (Unverified Allergy, Unknown, 02/24/14) TRIMETHOPRIM (Unverified Allergy, Unknown, 02/24/14) Subjective patient seen by bedside f/u r heel ulcer. Patient is afebrile with WBC wnl. Objective Exam Last 24 Hour Vital Signs Date Time Temp Pulse Resp B/P (MAP) Pulse Ox O2 Delivery O2 Flow Rate FiO2 12/18/18 10:56 71 25 100 Mechanical Ventilator 35 12/18/18 10:49 71 25 35 12/18/18 09:25 69 28 35 12/18/18 08:00 Mechanical Ventilator 12/18/18 08:00 97.9 71 20 148/80 (102) 100 70 62 12/18/18 08:00 69 12/18/18 08:00 35 12/18/18 07:28 69 16 100 Mechanical Ventilator 35 12/18/18 07:18 66 22 100 Mechanical Ventilator 35 12/18/18 07:17 67 23 35 12/18/18 05:44 102/58 12/18/18 05:11 70 23 35 12/18/18 04:00 Mechanical Ventilator 12/18/18 04:00 35 12/18/18 04:00 98.4 71 20 100/58 (72) 100 60 62 12/18/18 03:34 70 12/18/18 03:20 69 23 60 12/18/18 01:24 69 22 80 12/18/18 00:00 98.4 62 24 107/56 (73) 100 59 60 12/18/18 00:00 Mechanical Ventilator 12/17/18 23:34 72 12/17/18 23:09 73 22 80 12/17/18 21:35 70 21 80 12/17/18 21:00 68 97/52 12/17/18 20:00 98.6 69 16 97/52 (67) 100 65 64 12/17/18 20:00 Mechanical Ventilator 12/17/18 20:00 35 12/17/18 19:40 68 16 100 Mechanical Ventilator 35 12/17/18 19:34 68 22 100 Mechanical Ventilator 35 12/17/18 19:33 68 19 80 12/17/18 19:12 69 12/17/18 18:08 114/54 12/17/18 17:15 72 23 80 12/17/18 17:01 72 12/17/18 16:55 98.9 74 22 114/54 93 Mechanical Ventilator 100 12/17/18 16:55 100 12/17/18 16:40 71 21 99/50 95 Mechanical Ventilator 100 12/17/18 16:30 99.2 72 21 108/31 (56) 95 72 69 12/17/18 16:30 70 28 116/42 95 Mechanical Ventilator 100 12/17/18 16:20 72 32 116/42 93 Mechanical Ventilator 100 12/17/18 16:15 73 33 145/58 93 Mechanical Ventilator 100 12/17/18 16:10 98.1 73 25 135/34 100 Mechanical Ventilator 60 12/17/18 16:10 72 20 100 12/17/18 16:09 100 12/17/18 16:00 35 12/17/18 16:00 Mechanical Ventilator 12/17/18 15:56 Mechanical Ventilator 35 12/17/18 15:56 Mechanical Ventilator 35 Laboratory Tests Test 12/17/18 12:40 12/17/18 14:30 12/17/18 15:00 12/17/18 18:00 Activated Partial Thromboplast Time 110 SEC (23-33) H 46 SEC (23-33) H 45 SEC (23-33) H White Blood Count 13.8 K/UL (4.8-10.8) #H 11.9 K/UL (4.8-10.8) H Red Blood Count 4.36 M/UL (4.70-6.10) L 3.83 M/UL (4.70-6.10) L Hemoglobin 10.9 G/DL (14.2-18.0) L 9.5 G/DL (14.2-18.0) L Hematocrit 35.4 % (42.0-52.0) L 29.8 % (42.0-52.0) L Mean Corpuscular Volume 81 FL (80-99) 78 FL (80-99) L Mean Corpuscular Hemoglobin 24.9 PG (27.0-31.0) L 24.7 PG (27.0-31.0) L Mean Corpuscular Hemoglobin Concent 30.7 G/DL (32.0-36.0) L 31.8 G/DL (32.0-36.0) L Red Cell Distribution Width 16.5 % (11.6-14.8) H 15.7 % (11.6-14.8) H Platelet Count 356 K/UL (150-450) # 214 K/UL (150-450) Mean Platelet Volume 7.5 FL (6.5-10.1) 6.3 FL (6.5-10.1) L Neutrophils (%) (Auto) 77.2 % (45.0-75.0) H 79.1 % (45.0-75.0) H Lymphocytes (%) (Auto) 13.6 % (20.0-45.0) L 9.2 % (20.0-45.0) L Monocytes (%) (Auto) 8.3 % (1.0-10.0) 10.7 % (1.0-10.0) H Eosinophils (%) (Auto) 0.0 % (0.0-3.0) 0.0 % (0.0-3.0) Basophils (%) (Auto) 0.9 % (0.0-2.0) 1.1 % (0.0-2.0) Sodium Level 131 MMOL/L (136-145) L Potassium Level 5.4 MMOL/L (3.5-5.1) H Chloride Level 93 MMOL/L (98-107) L Carbon Dioxide Level 29 MMOL/L (21-32) Anion Gap 9 mmol/L (5-15) Blood Urea Nitrogen 55 mg/dL (7-18) H Creatinine 6.3 MG/DL (0.55-1.30) H Estimat Glomerular Filtration Rate 8.9 mL/min (>60) Glucose Level 141 MG/DL (74-106) H Calcium Level 8.8 MG/DL (8.5-10.1) Test 12/17/18 23:56 12/18/18 04:00 Activated Partial Thromboplast Time 83 SEC (23-33) H 91 SEC (23-33) H White Blood Count 6.9 K/UL (4.8-10.8) Red Blood Count 3.87 M/UL (4.70-6.10) L Hemoglobin 9.5 G/DL (14.2-18.0) L Hematocrit 30.9 % (42.0-52.0) L Mean Corpuscular Volume 80 FL (80-99) Mean Corpuscular Hemoglobin 24.6 PG (27.0-31.0) L Mean Corpuscular Hemoglobin Concent 30.8 G/DL (32.0-36.0) L Red Cell Distribution Width 16.2 % (11.6-14.8) H Platelet Count 210 K/UL (150-450) Mean Platelet Volume 6.7 FL (6.5-10.1) Neutrophils (%) (Auto) 71.1 % (45.0-75.0) Lymphocytes (%) (Auto) 15.6 % (20.0-45.0) L Monocytes (%) (Auto) 12.5 % (1.0-10.0) H Eosinophils (%) (Auto) 0.1 % (0.0-3.0) Basophils (%) (Auto) 0.8 % (0.0-2.0) Sodium Level 131 MMOL/L (136-145) L Potassium Level 4.8 MMOL/L (3.5-5.1) Chloride Level 93 MMOL/L (98-107) L Carbon Dioxide Level 29 MMOL/L (21-32) Anion Gap 9 mmol/L (5-15) Blood Urea Nitrogen 60 mg/dL (7-18) H Creatinine 6.7 MG/DL (0.55-1.30) H Estimat Glomerular Filtration Rate 8.3 mL/min (>60) Glucose Level 123 MG/DL (74-106) H Calcium Level 8.6 MG/DL (8.5-10.1) Phosphorus Level 5.4 MG/DL (2.5-4.9) H Magnesium Level 2.2 MG/DL (1.8-2.4) Total Bilirubin 0.3 MG/DL (0.2-1.0) Aspartate Amino Transf (AST/SGOT) 17 U/L (15-37) Alanine Aminotransferase (ALT/SGPT) 10 U/L (12-78) L Alkaline Phosphatase 158 U/L (46-116) H C-Reactive Protein, Quantitative 18.1 mg/dL (0.00-0.90) H Pro-B-Type Natriuretic Peptide > 48034 pg/mL (0-125) H Total Protein 6.5 G/DL (6.4-8.2) Albumin 2.0 G/DL (3.4-5.0) L Globulin 4.5 g/dL Albumin/Globulin Ratio 0.4 (1.0-2.7) L Microbiology Date/Time Source Procedure Growth Status 11/14/18 15:30 Blood Blood Culture - Final NO GROWTH AFTER 5 DAYS Complete 11/12/18 12:13 Pleural Fluid Fungal Culture - Final Complete 11/12/18 12:13 Pleural Fluid Fungal Culture 1 - Final Complete 10/31/18 20:39 Wound Gram Stain - Final Complete 10/31/18 20:39 Wound Culture - Final Staphylococcus Aureus - Mrsa Complete 10/31/18 21:00 Nasal Nares MRSA Culture - Final Staphylococcus Aureus - Mrsa Complete 11/30/18 17:33 Stool Clostridium difficile Toxin Assay - Final Complete 12/08/18 01:00 Abdomen Gram Stain - Final Complete 12/08/18 01:00 Wound Culture - Final Pseudomonas Aeruginosa Complete Dermatological Dermatological Narrative R heel ulcer noted to be clear from drainage and discharge. no pus. base of the ulcer noted to be dry eschar. periwound erythema noted. after debridement, fibrotic base noted and fat bad. no pus no tunneling or sinus tracks. elongated nails x10 cryptotic with inflammation. Dhruv Huizar DPM December 18, 2018 11:38
[2018-12-18] MEDS ORDERED: Bacitracin Oint 15gm Tube TOPIC ONE (11:54)
[2018-12-18] MEDS ORDERED: Heparin 1000 units/ml 1ml Vial ONE (11:54)
[2018-12-18] MEDS ORDERED: Heparin 5000 units/ml inj ONE (11:54)
[2018-12-18] MEDS ORDERED: Isovue-M 300 15ml INJ ONE (11:55)
[2018-12-18] MEDS ORDERED: Lidocaine 1% Plain 30 ml INJ ONE ×2 (11:55→12:02)
[2018-12-18] MEDS ORDERED: Ketamine 500mg Inj ONE (12:00)
[2018-12-18] MEDS ORDERED: Sterile Water Irrig 1000ml IRRIG ONE (12:00)
[2018-12-18] MEDS ORDERED: NS Irrig 1000ml ONE (12:00)
[2018-12-18] MEDS ORDERED: Glycopyrrolate 0.2mg/ml 1ml Vial ONE (12:00)
[2018-12-18] MEDS ORDERED: NS 500ML IVPB ONE (12:01)
[2018-12-18] MEDS ORDERED: Omnipaque-300 100ml vial INJ SCH (12:39)
--- NOTE | 2018-12-18 13:05 | Cardiac Electrophysiology PN ---
Assessment/Plan Assessment/Plan 1. Troponin leak due to renal failure. No CP or SOB 2. S/P CABG. On Coreg 6.25 mg bid, aspirin 162 and Lipitor 3. NSVT in setting of old SC and CABG. EF 55%. No Syncope 4. Congestive heart failure. On hemodialysis 5. S/P R. Med[employer]onic dual chamber pacemaker with Nl Fx. 6. End-stage renal disease, on hemodialysis per Dr. Stevens Fistulogram today by Dr Salmeron . 7. Multilevel AOD LE's with non-healing Right foot ulcer. Abdominal Angiogram per Dr Salmeron yesterday Antibiotic per Dr. Landis. FU by Dr. Huizar 8. History of liver transplant on Prograf 9. Respiratory failure, S/P tracheostomy. 10. Pleural effusion. FU Dr. Mendoza 11. Dysphagia, S/P PEG DW RN Subjective Subjective On the vent via tracheostomy. S/P abdominal aortogram for leg pain by Dr. Salmeron yesterday Undergoing fistulogram now. Objective Last 24 Hour Vital Signs Date Time Temp Pulse Resp B/P (MAP) Pulse Ox O2 Delivery O2 Flow Rate FiO2 12/18/18 12:00 97.7 73 20 112/50 (70) 100 72 62 12/18/18 12:00 35 12/18/18 12:00 Mechanical Ventilator 12/18/18 12:00 73 12/18/18 11:06 75 22 100 Mechanical Ventilator 35 12/18/18 10:56 71 25 100 Mechanical Ventilator 35 12/18/18 10:49 71 25 35 12/18/18 09:25 69 28 35 12/18/18 08:00 Mechanical Ventilator 12/18/18 08:00 97.9 71 20 148/80 (102) 100 70 62 12/18/18 08:00 69 12/18/18 08:00 35 12/18/18 07:28 69 16 100 Mechanical Ventilator 35 12/18/18 07:18 66 22 100 Mechanical Ventilator 35 12/18/18 07:17 67 23 35 12/18/18 05:44 102/58 12/18/18 05:11 70 23 35 12/18/18 04:00 Mechanical Ventilator 12/18/18 04:00 35 12/18/18 04:00 98.4 71 20 100/58 (72) 100 60 62 12/18/18 03:34 70 12/18/18 03:20 69 23 60 12/18/18 01:24 69 22 80 12/18/18 00:00 98.4 62 24 107/56 (73) 100 59 60 12/18/18 00:00 Mechanical Ventilator 12/17/18 23:34 72 12/17/18 23:09 73 22 80 12/17/18 21:35 70 21 80 12/17/18 21:00 68 97/52 12/17/18 20:00 98.6 69 16 97/52 (67) 100 65 64 12/17/18 20:00 Mechanical Ventilator 12/17/18 20:00 35 12/17/18 19:40 68 16 100 Mechanical Ventilator 35 12/17/18 19:34 68 22 100 Mechanical Ventilator 35 12/17/18 19:33 68 19 80 12/17/18 19:12 69 12/17/18 18:08 114/54 12/17/18 17:15 72 23 80 12/17/18 17:01 72 12/17/18 16:55 98.9 74 22 114/54 93 Mechanical Ventilator 100 12/17/18 16:55 100 12/17/18 16:40 71 21 99/50 95 Mechanical Ventilator 100 12/17/18 16:30 99.2 72 21 108/31 (56) 95 72 69 12/17/18 16:30 70 28 116/42 95 Mechanical Ventilator 100 12/17/18 16:20 72 32 116/42 93 Mechanical Ventilator 100 12/17/18 16:15 73 33 145/58 93 Mechanical Ventilator 100 12/17/18 16:10 98.1 73 25 135/34 100 Mechanical Ventilator 60 12/17/18 16:10 72 20 100 12/17/18 16:09 100 12/17/18 16:00 35 12/17/18 16:00 Mechanical Ventilator 12/17/18 15:56 Mechanical Ventilator 35 12/17/18 15:56 Mechanical Ventilator 35 Intake and Output 12/17/18 12/18/18 19:00 07:00 Intake Total 1136.904 ml 50 ml Output Total 100 ml Balance 1036.904 ml 50 ml Free Water 50 ml IV Total 1136.904 ml Estimated Blood Loss 100 ml Laboratory Tests Test 12/17/18 14:30 12/17/18 15:00 12/17/18 18:00 12/17/18 23:56 Activated Partial Thromboplast Time 46 SEC (23-33) H 45 SEC (23-33) H 83 SEC (23-33) H White Blood Count 13.8 K/UL (4.8-10.8) #H 11.9 K/UL (4.8-10.8) H Red Blood Count 4.36 M/UL (4.70-6.10) L 3.83 M/UL (4.70-6.10) L Hemoglobin 10.9 G/DL (14.2-18.0) L 9.5 G/DL (14.2-18.0) L Hematocrit 35.4 % (42.0-52.0) L 29.8 % (42.0-52.0) L Mean Corpuscular Volume 81 FL (80-99) 78 FL (80-99) L Mean Corpuscular Hemoglobin 24.9 PG (27.0-31.0) L 24.7 PG (27.0-31.0) L Mean Corpuscular Hemoglobin Concent 30.7 G/DL (32.0-36.0) L 31.8 G/DL (32.0-36.0) L Red Cell Distribution Width 16.5 % (11.6-14.8) H 15.7 % (11.6-14.8) H Platelet Count 356 K/UL (150-450) # 214 K/UL (150-450) Mean Platelet Volume 7.5 FL (6.5-10.1) 6.3 FL (6.5-10.1) L Neutrophils (%) (Auto) 77.2 % (45.0-75.0) H 79.1 % (45.0-75.0) H Lymphocytes (%) (Auto) 13.6 % (20.0-45.0) L 9.2 % (20.0-45.0) L Monocytes (%) (Auto) 8.3 % (1.0-10.0) 10.7 % (1.0-10.0) H Eosinophils (%) (Auto) 0.0 % (0.0-3.0) 0.0 % (0.0-3.0) Basophils (%) (Auto) 0.9 % (0.0-2.0) 1.1 % (0.0-2.0) Sodium Level 131 MMOL/L (136-145) L Potassium Level 5.4 MMOL/L (3.5-5.1) H Chloride Level 93 MMOL/L (98-107) L Carbon Dioxide Level 29 MMOL/L (21-32) Anion Gap 9 mmol/L (5-15) Blood Urea Nitrogen 55 mg/dL (7-18) H Creatinine 6.3 MG/DL (0.55-1.30) H Estimat Glomerular Filtration Rate 8.9 mL/min (>60) Glucose Level 141 MG/DL (74-106) H Calcium Level 8.8 MG/DL (8.5-10.1) Test 12/18/18 04:00 White Blood Count 6.9 K/UL (4.8-10.8) Red Blood Count 3.87 M/UL (4.70-6.10) L Hemoglobin 9.5 G/DL (14.2-18.0) L Hematocrit 30.9 % (42.0-52.0) L Mean Corpuscular Volume 80 FL (80-99) Mean Corpuscular Hemoglobin 24.6 PG (27.0-31.0) L Mean Corpuscular Hemoglobin Concent 30.8 G/DL (32.0-36.0) L Red Cell Distribution Width 16.2 % (11.6-14.8) H Platelet Count 210 K/UL (150-450) Mean Platelet Volume 6.7 FL (6.5-10.1) Neutrophils (%) (Auto) 71.1 % (45.0-75.0) Lymphocytes (%) (Auto) 15.6 % (20.0-45.0) L Monocytes (%) (Auto) 12.5 % (1.0-10.0) H Eosinophils (%) (Auto) 0.1 % (0.0-3.0) Basophils (%) (Auto) 0.8 % (0.0-2.0) Activated Partial Thromboplast Time 91 SEC (23-33) H Sodium Level 131 MMOL/L (136-145) L Potassium Level 4.8 MMOL/L (3.5-5.1) Chloride Level 93 MMOL/L (98-107) L Carbon Dioxide Level 29 MMOL/L (21-32) Anion Gap 9 mmol/L (5-15) Blood Urea Nitrogen 60 mg/dL (7-18) H Creatinine 6.7 MG/DL (0.55-1.30) H Estimat Glomerular Filtration Rate 8.3 mL/min (>60) Glucose Level 123 MG/DL (74-106) H Calcium Level 8.6 MG/DL (8.5-10.1) Phosphorus Level 5.4 MG/DL (2.5-4.9) H Magnesium Level 2.2 MG/DL (1.8-2.4) Total Bilirubin 0.3 MG/DL (0.2-1.0) Aspartate Amino Transf (AST/SGOT) 17 U/L (15-37) Alanine Aminotransferase (ALT/SGPT) 10 U/L (12-78) L Alkaline Phosphatase 158 U/L (46-116) H C-Reactive Protein, Quantitative 18.1 mg/dL (0.00-0.90) H Pro-B-Type Natriuretic Peptide > 30624 pg/mL (0-125) H Total Protein 6.5 G/DL (6.4-8.2) Albumin 2.0 G/DL (3.4-5.0) L Globulin 4.5 g/dL Albumin/Globulin Ratio 0.4 (1.0-2.7) L Objective HEAD AND NECK: No JVD. Tracheostomy intact LUNGS: Clear CARDIOVASCULAR: Irregular S1 and S2 with no gallop. Sternotomy is intact Pacemaker in the right subclavian ABDOMEN: Soft.PEG in place EXTREMITIES: 1+ pitting edema Shivam Sharpe MD December 18, 2018 13:05
--- NOTE | 2018-12-18 13:52 | Immediate Post-Op Evaluation ---
Immediate Post-Op Evalulation Immediate Post-Op Evalulation Procedure: RIGHT arm fistulogram, balloon angioplasty Date of Evaluation: December 18, 2018 Time of Evaluation: 13:35 IV Fluids: 0.9 NS 100 ml Estimated Blood Loss: 5 Blood Pressure Systolic: 140 Blood Pressure Diastolic: 37 Pulse Rate: 83 Respiratory Rate: 16 O2 Sat by Pulse Oximetry: 10 Temperature (Fahrenheit): 99.2 Pain Score (1-10): 6 Nausea: No Vomiting: No Complications none Patient Status: awake, reacts, ventilated - Vt 500 rate 16, Peep 5, 35% Hydration Status: adequate Given Within 1 Hr of Incision: Soco Xiong CRNA December 18, 2018 13:52
[2018-12-18] MEDS ORDERED: Hydromorphone 0.5mg/0.5ml inj IVP PRN (14:00)
--- NOTE | 2018-12-18 14:04 | Pre-Procedure Note/Attestation ---
Pre-Procedure Note/Attestation Complete Prior to Procedure Planned Procedure: right Procedure Narrative: right arm fistulogram, possible intervention Indications for Procedure Pre-Operative Diagnosis: right arm edema and AVF malfunction Attestation I attest that I discussed the nature of the procedure; its benefits; risks and complications; and alternatives (and the risks and benefits of such alternatives ), prior to the procedure, with the patient (or the patient's legal reimbursement representative). I attest that, if there was a reasonable possibility of needing a blood transfusion, the patient (or the patient's legal reimbursement representative) was given the [facility] standardized written summary, pursuant to the Horacio Louis Blood Safety Act ([place] Health and Safety Code # 1645, as amended). I attest that I re-evaluated the patient just prior to the surgery and that there has been no change in the patient's H&P, except as documented below: eGe Salmeron MD December 18, 2018 14:04
--- NOTE | 2018-12-18 14:06 | Brief Operative Note ---
Immediate Post Operative Note Operative Note Pre-op Diagnosis: right arm edema and AVF malfunction Procedure: right arm fistulogram and BLOOD COORDINATOR Post-op Diagnosis: same as pre-op Findings: consistent w/pre-op dx studies Surgeon: Sea Salmeron Anesthesiologist: Guevara Landaverde CRNA Anesthesia: MAC Specimen: none Complications: none Condition: stable Fluids: See anesth. record Estimated Blood Loss: minimal Drains: none Implant(s) used?: No Gee Salmeron MD December 18, 2018 14:06
--- NOTE | 2018-12-18 14:46 | 48 Hour Post Anesthesia Eval ---
Post Anesthesia Evaluation Procedure: RIGHT arm fistulogram, balloon angioplasty Date of Evaluation: December 18, 2018 Time of Evaluation: 14:45 Blood Pressure Systolic: 110 0: 37 Pulse Rate: 72 Respiratory Rate: 17 - Mech Vent Temperature (Fahrenheit): 99.2 O2 Sat by Pulse Oximetry: 100 Airway: patent Nausea: No Vomiting: No Pain Intensity: 2 Hydration Status: adequate Cardiopulmonary Status: Stable Follow-up Care/Observations: 0 Post-Anesthesia Complications: 0 Follow-up care needed: N/A Neel Gonzales MD December 18, 2018 14:46
--- NOTE | 2018-12-18 14:47 | Pulmonology Progress Note ---
Assessment/Plan Assessment/Plan 1. Resp failure, hypercapneic 2. End-stage renal disease, on dialysis, status post multiple upper extremity vascular procedures. 3. Coronary artery bypass surgery. 4. Diabetes. 5. Dysphonia, tongue swelling, resolved; s/p trach PLAN: had several vascular procedures disc w vasc surgery disc w RN stable on vent I will see intermittently Subjective ROS Limited/Unobtainable: Yes Constitutional: Reports: no symptoms Allergies: Coded Allergies: CEPHALEXIN (Unverified Allergy, Unknown, 02/24/14) SULFAMETHOXAZOLE (Unverified Allergy, Unknown, 02/24/14) TRIMETHOPRIM (Unverified Allergy, Unknown, 02/24/14) Objective Last 24 Hour Vital Signs Date Time Temp Pulse Resp B/P (MAP) Pulse Ox O2 Delivery O2 Flow Rate FiO2 12/18/18 14:30 99.0 71 18 102/37 100 Mechanical Ventilator 100 12/18/18 14:15 72 17 110/37 100 Mechanical Ventilator 100 12/18/18 14:00 72 18 106/38 100 Mechanical Ventilator 100 12/18/18 13:52 83 16 10 12/18/18 13:45 71 17 119/37 100 Mechanical Ventilator 100 12/18/18 13:40 73 16 133/41 100 Mechanical Ventilator 100 12/18/18 13:35 99.2 83 16 140/37 100 Mechanical Ventilator 100 83 12/18/18 12:00 97.7 73 20 112/50 (70) 100 72 62 12/18/18 12:00 35 12/18/18 12:00 Mechanical Ventilator 12/18/18 12:00 73 12/18/18 11:06 75 22 100 Mechanical Ventilator 35 12/18/18 10:56 71 25 100 Mechanical Ventilator 35 12/18/18 10:49 71 25 35 12/18/18 09:25 69 28 35 12/18/18 08:00 Mechanical Ventilator 12/18/18 08:00 97.9 71 20 148/80 (102) 100 70 62 12/18/18 08:00 69 12/18/18 08:00 35 12/18/18 07:28 69 16 100 Mechanical Ventilator 35 12/18/18 07:18 66 22 100 Mechanical Ventilator 35 12/18/18 07:17 67 23 35 12/18/18 05:44 102/58 5/3/19 05:11 70 23 35 12/18/18 04:00 Mechanical Ventilator 12/18/18 04:00 35 12/18/18 04:00 98.4 71 20 100/58 (72) 100 60 62 12/18/18 03:34 70 12/18/18 03:20 69 23 60 12/18/18 01:24 69 22 80 12/18/18 00:00 98.4 62 24 107/56 (73) 100 59 60 12/18/18 00:00 Mechanical Ventilator 12/17/18 23:34 72 12/17/18 23:09 73 22 80 12/17/18 21:35 70 21 80 12/17/18 21:00 68 97/52 12/17/18 20:00 98.6 69 16 97/52 (67) 100 65 64 12/17/18 20:00 Mechanical Ventilator 12/17/18 20:00 35 12/17/18 19:40 68 16 100 Mechanical Ventilator 35 12/17/18 19:34 68 22 100 Mechanical Ventilator 35 12/17/18 19:33 68 19 80 12/17/18 19:12 69 12/17/18 18:08 114/54 12/17/18 17:15 72 23 80 12/17/18 17:01 72 12/17/18 16:55 98.9 74 22 114/54 93 Mechanical Ventilator 100 12/17/18 16:55 100 12/17/18 16:40 71 21 99/50 95 Mechanical Ventilator 100 12/17/18 16:30 99.2 72 21 108/31 (56) 95 72 69 12/17/18 16:30 70 28 116/42 95 Mechanical Ventilator 100 12/17/18 16:20 72 32 116/42 93 Mechanical Ventilator 100 12/17/18 16:15 73 33 145/58 93 Mechanical Ventilator 100 12/17/18 16:10 98.1 73 25 135/34 100 Mechanical Ventilator 60 12/17/18 16:10 72 20 100 12/17/18 16:09 100 12/17/18 16:00 35 12/17/18 16:00 Mechanical Ventilator 12/17/18 15:56 Mechanical Ventilator 35 12/17/18 15:56 Mechanical Ventilator 35 Intake and Output 12/17/18 12/18/18 19:00 07:00 Intake Total 1136.904 ml 50 ml Output Total 100 ml Balance 1036.904 ml 50 ml Free Water 50 ml IV Total 1136.904 ml Estimated Blood Loss 100 ml Objective trach on vent General Appearance: no acute distress Cardiovascular: normal rate Laboratory Tests 12/17/18 15:00: White Blood Count 13.8#H, Red Blood Count 4.36L, Hemoglobin 10.9L, Hematocrit 35.4L, Mean Corpuscular Volume 81, Mean Corpuscular Hemoglobin 24.9L, Mean Corpuscular Hemoglobin Concent 30.7L, Red Cell Distribution Width 16.5H, Platelet Count 356#, Mean Platelet Volume 7.5, Neutrophils (%) (Auto) 77.2H, Lymphocytes (%) (Auto) 13.6L, Monocytes (%) (Auto) 8.3, Eosinophils (%) (Auto) 0.0, Basophils (%) (Auto) 0.9, Activated Partial Thromboplast Time 45H, Sodium Level 131L, Potassium Level 5.4H, Chloride Level 93L, Carbon Dioxide Level 29, Anion Gap 9, Blood Urea Nitrogen 55H, Creatinine 6.3H, Estimat Glomerular Filtration Rate 8.9, Glucose Level 141H, Calcium Level 8.8 12/17/18 18:00: White Blood Count 11.9H, Red Blood Count 3.83L, Hemoglobin 9.5L, Hematocrit 29.8L, Mean Corpuscular Volume 78L, Mean Corpuscular Hemoglobin 24.7L, Mean Corpuscular Hemoglobin Concent 31.8L, Red Cell Distribution Width 15.7H, Platelet Count 214, Mean Platelet Volume 6.3L, Neutrophils (%) (Auto) 79.1H, Lymphocytes (%) (Auto) 9.2L, Monocytes (%) (Auto) 10.7H, Eosinophils (%) (Auto) 0.0, Basophils (%) (Auto) 1.1 12/17/18 23:56: Activated Partial Thromboplast Time 83H 12/18/18 04:00: White Blood Count 6.9, Red Blood Count 3.87L, Hemoglobin 9.5L, Hematocrit 30.9L , Mean Corpuscular Volume 80, Mean Corpuscular Hemoglobin 24.6L, Mean Corpuscular Hemoglobin Concent 30.8L, Red Cell Distribution Width 16.2H, Platelet Count 210, Mean Platelet Volume 6.7, Neutrophils (%) (Auto) 71.1, Lymphocytes (%) (Auto) 15.6L, Monocytes (%) (Auto) 12.5H, Eosinophils (%) (Auto ) 0.1, Basophils (%) (Auto) 0.8, Activated Partial Thromboplast Time 91H, Sodium Level 131L, Potassium Level 4.8, Chloride Level 93L, Carbon Dioxide Level 29, Anion Gap 9, Blood Urea Nitrogen 60H, Creatinine 6.7H, Estimat Glomerular Filtration Rate 8.3, Glucose Level 123H, Calcium Level 8.6, Phosphorus Level 5.4H, Magnesium Level 2.2, Total Bilirubin 0.3, Aspartate Amino Transf (AST/SGOT) 17, Alanine Aminotransferase (ALT/SGPT) 10L, Alkaline Phosphatase 158H, C-Reactive Protein, Quantitative 18.1H, Pro-B-Type Natriuretic Peptide > 11843H, Total Protein 6.5, Albumin 2.0L, Globulin 4.5, Albumin/Globulin Ratio 0.4L Current Medications Medications (Trade) Dose Ordered Sig/Aleks Route PRN Reason Start Time Stop Time Status Last Admin Dose Admin Albuterol/ Ipratropium (Albuterol/ Ipratropium) 3 ml QIDRT HHN 12/17/18 07:00 12/20/18 14:44 12/18/18 10:57 Aspirin (ASA) 162 mg DAILY GT 12/08/18 09:00 12/20/18 08:59 12/17/18 08:47 Atorvastatin Calcium (Lipitor) 10 mg BEDTIME NG 12/01/18 21:00 12/21/18 20:59 12/17/18 21:08 Bacitracin (Bacitracin) 1 applic EVERY 12 HOURS TOPIC 12/11/18 21:00 01/06/19 17:59 12/18/18 09:00 Carvedilol (Coreg) 6.25 mg EVERY 12 HOURS PEG 12/06/18 21:00 01/03/19 20:59 12/17/18 08:48 Clotrimazole (Lotrimin) 1 applic BID TOPIC 12/07/18 18:00 01/06/19 17:59 12/18/18 09:00 Collagenase (Santyl) 1 applic DAILY TOPIC 12/19/18 09:00 01/18/19 08:59 Collagenase (Santyl) 1 applic ONCE TOPIC 12/18/18 18:00 12/18/18 21:00 Dextrose (Dextrose 50%) 25 ml Q30M PRN IV Hypoglycemia 12/01/18 19:30 12/31/18 19:29 Dextrose (Dextrose 50%) 50 ml Q30M PRN IV Hypoglycemia 12/01/18 19:30 12/31/18 19:29 Docusate Sodium (Colace) 100 mg EVERY 8 HOURS PRN GT constipation 11/24/18 18:51 12/20/18 18:50 Escitalopram Oxalate (Lexapro) 10 mg DAILY GT 12/18/18 09:00 01/17/19 08:59 12/18/18 09:00 Heparin Sodium/ Dextrose 500 ml @ 36.904 mls/ hr ADJUST PER PROTOCOL IV 12/18/18 07:55 01/16/19 17:29 12/18/18 07:58 Hydralazine HCl (Apresoline) 10 mg Q6H PRN GT For High Blood Pressure 12/03/18 16:45 01/02/19 16:44 12/07/18 04:47 Hydromorphone HCl (Dilaudid) 0.5 mg Q15M PRN IVP Severe Pain (Pain Scale 7-10) 12/18/18 14:00 12/18/18 20:00 Hydromorphone HCl (Dilaudid) 1 mg Q4H PRN GT For Pain 12/14/18 15:30 12/21/18 15:29 12/18/18 10:53 Insulin Aspart (NovoLOG) EVERY 6 HOURS SUBQ 12/02/18 00:00 12/31/18 20:59 12/15/18 23:42 Lactulose (Cephulac) 20 gm THREE TIMES A DAY PRN GT Constipation 11/24/18 18:51 12/23/18 18:50 Lansoprazole (Prevacid) 30 mg BID GT 11/20/18 09:00 12/20/18 08:59 12/18/18 09:00 Mirtazapine (Remeron) 7.5 mg BEDTIME GT 12/14/18 21:00 01/13/19 20:59 12/17/18 21:08 Nicotine (Nicoderm) 1 patch Q24H TDERMAL 12/01/18 22:15 12/21/18 22:14 12/17/18 21:11 Nitroglycerin (Nitro-Bid) 1 inch TID@0600,1200,1800 TOPIC 12/07/18 12:00 01/06/19 11:59 12/17/18 18:08 Sevelamer Carbonate (Renvela) 800 mg Q8HR GT 11/20/18 14:00 12/20/18 13:59 12/18/18 05:43 Tacrolimus (Prograf) 2 mg MoWeFr@0000,1200 ORAL 12/07/18 00:00 12/21/18 00:00 12/18/18 01:01 Tacrolimus (Prograf) 2 mg SuTuThSa@0900,2100 ORAL 12/17/18 21:00 01/16/19 20:59 12/17/18 21:13 Saroj Mendoza MD December 18, 2018 14:47
--- NOTE | 2018-12-18 15:57 | General Progress Note ---
Assessment/Plan Status: stable, progressing Assessment/Plan: Assessment and Recs: # Coagulopathy likely secondary to decreased Vitk dependent cofactors (high INR , PT) likely currently is on a heparin gtt --> monitor closely for any evidence of bleeding --> VIT K on prn basis sq can be administered ==> recently has improved inr 1.2-->1.1-->1.2 # Anemia of chronic disease due to underlying chronic medical issues, multifactorial as well as kidney disease --> Anemia workup has been ordered, rule out gi bleed, seen by gi, also reviewed w/u --> HAS BEEN reordered since refusing --> No evidence of hemolysis is noted, peripheral smear has been reviewed. --> Epogen can be consider if hgb downtrends --> Medications have been reviewed --> evaluate with Gi team prn --> transfuse if hgb is < 7 (will trend CBC daily) ==> hgb trend 11.2-->10.9-->10.8-->10.7-->10.2-->9.7-->9.7 # Failure to thrive is likely related to poor overall status, poor functional status --> with multiple decub ulcerations that are noted, seen by id/surgery --> s/p trach as well --> cea is wnl # Acute respiratory failure is now s/p trach to vent --> as per surgery recs # Ground glass opacities present on imaging of lung --> with pleural effusions, s/p drainage at this time --> no evidence for malignancy is noted # Pleural effusion --> s/p thoracentesis # Hyperkalemia --> kayxelate has been given # Renal failure --> per renal recs, appreciated --> getting hd as per schedule # Altered level of consciousness ==> currently as per baseline The timing of this note does not necessarily reflect the time of the patient was seen. Greatly appreciate consultation! Subjective Cardiovascular: Denies: no symptoms, chest pain, edema, irregular heart rate, lightheadedness, palpitations, syncope, other Respiratory: Denies: no symptoms, cough, orthopnea, shortness of breath, SOB with excertion, SOB at rest, sputum, stridor, wheezing, other Gastrointestinal/Abdominal: Denies: no symptoms, abdomen distended, abdominal pain, black stools, tarry stools, blood in stool, constipated, diarrhea, difficulty swallowing, nausea, poor appetite, poor fluid intake, rectal bleeding , vomiting, other Genitourinary: Denies: no symptoms, burning, discharge, frequency, flank pain, hematuria, incontinence, pain, urgency, other 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: Denies: no symptoms, anxiety, depressed, emotional problems, headache, numbness, paresthesia, pre-existing deficit, seizure, tingling, tremors, weakness, other Endocrine: Denies: no symptoms, excessive sweating, flushing, intolerance to cold, intolerance to heat, increased hunger, increased thirst, increased urine, unexplained weight gain, unexplained weight loss, other Hematologic/Lymphatic: Denies: no symptoms, anemia, easy bleeding, easy bruising, other Allergies: Coded Allergies: CEPHALEXIN (Unverified Allergy, Unknown, 02/24/14) SULFAMETHOXAZOLE (Unverified Allergy, Unknown, 02/24/14) TRIMETHOPRIM (Unverified Allergy, Unknown, 02/24/14) Subjective 11/30: comfortable, on abx, no complaints, on t-piece 12/01: to have hd done potentially tomorrow, is more alert/awake 12/02: no major bleeding, hgb remains approx 11, no changes 12/03: no events, breathing mildly better, hgb is improved 12/04: on vent/trach, no major changes, sr ekg 12/10: small amount of secretions, on trach/vent, no issues otherwise 12/11: no major issues, no complaints, labs reviewed, no sig changes 12/13: no events to report, no fevers or chills, awaiting placement 12/14: no changes, no major events to report, no fevers or chills 12/15: pending placement, getting gt feeds and hd as per renal 12/16: labs have been reviewed, cbc noted, no changes 12/17: no events, no fevers, no cp, hgb remains stable 12/18: restarted on heparin gtt, seen by pulm, cards Objective Last 24 Hour Vital Signs Date Time Temp Pulse Resp B/P (MAP) Pulse Ox O2 Delivery O2 Flow Rate FiO2 12/18/18 15:14 69 20 100 Mechanical Ventilator 35 12/18/18 15:04 70 24 100 Mechanical Ventilator 35 12/18/18 15:04 71 24 35 12/18/18 14:46 72 17 100 12/18/18 14:30 99.0 71 18 102/37 100 Mechanical Ventilator 100 12/18/18 14:15 72 17 110/37 100 Mechanical Ventilator 100 12/18/18 14:00 72 18 106/38 100 Mechanical Ventilator 100 12/18/18 13:52 83 16 10 12/18/18 13:45 71 17 119/37 100 Mechanical Ventilator 100 12/18/18 13:40 73 16 133/41 100 Mechanical Ventilator 100 12/18/18 13:35 99.2 83 16 140/37 100 Mechanical Ventilator 100 83 12/18/18 12:00 97.7 73 20 112/50 (70) 100 72 62 12/18/18 12:00 35 12/18/18 12:00 Mechanical Ventilator 12/18/18 12:00 73 12/18/18 11:06 75 22 100 Mechanical Ventilator 35 12/18/18 10:56 71 25 100 Mechanical Ventilator 35 12/18/18 10:49 71 25 35 12/18/18 09:25 69 28 35 12/18/18 08:00 Mechanical Ventilator 12/18/18 08:00 97.9 71 20 148/80 (102) 100 70 62 12/18/18 08:00 69 12/18/18 08:00 35 12/18/18 07:28 69 16 100 Mechanical Ventilator 35 12/18/18 07:18 66 22 100 Mechanical Ventilator 35 12/18/18 07:17 67 23 35 12/18/18 05:44 102/58 12/18/18 05:11 70 23 35 12/18/18 04:00 Mechanical Ventilator 12/18/18 04:00 35 12/18/18 04:00 98.4 71 20 100/58 (72) 100 60 62 12/18/18 03:34 70 12/18/18 03:20 69 23 60 12/18/18 01:24 69 22 80 12/18/18 00:00 98.4 62 24 107/56 (73) 100 59 60 12/18/18 00:00 Mechanical Ventilator 12/17/18 23:34 72 12/17/18 23:09 73 22 80 12/17/18 21:35 70 21 80 12/17/18 21:00 68 97/52 12/17/18 20:00 98.6 69 16 97/52 (67) 100 65 64 12/17/18 20:00 Mechanical Ventilator 12/17/18 20:00 35 12/17/18 19:40 68 16 100 Mechanical Ventilator 35 12/17/18 19:34 68 22 100 Mechanical Ventilator 35 12/17/18 19:33 68 19 80 12/17/18 19:12 69 12/17/18 18:08 114/54 12/17/18 17:15 72 23 80 12/17/18 17:01 72 12/17/18 16:55 98.9 74 22 114/54 93 Mechanical Ventilator 100 12/17/18 16:55 100 12/17/18 16:40 71 21 99/50 95 Mechanical Ventilator 100 12/17/18 16:30 99.2 72 21 108/31 (56) 95 72 69 12/17/18 16:30 70 28 116/42 95 Mechanical Ventilator 100 12/17/18 16:20 72 32 116/42 93 Mechanical Ventilator 100 12/17/18 16:15 73 33 145/58 93 Mechanical Ventilator 100 12/17/18 16:10 98.1 73 25 135/34 100 Mechanical Ventilator 60 12/17/18 16:10 72 20 100 12/17/18 16:09 100 12/17/18 16:00 35 12/17/18 16:00 Mechanical Ventilator 12/17/18 15:56 Mechanical Ventilator 35 12/17/18 15:56 Mechanical Ventilator 35 Intake and Output 12/17/18 12/18/18 18:59 06:59 Intake Total 1146.904 ml 50 ml Output Total 100 ml Balance 1046.904 ml 50 ml Free Water 10 ml 50 ml IV Total 1136.904 ml Estimated Blood Loss 100 ml Laboratory Tests 12/17/18 18:00: White Blood Count 11.9H, Red Blood Count 3.83L, Hemoglobin 9.5L, Hematocrit 29.8L, Mean Corpuscular Volume 78L, Mean Corpuscular Hemoglobin 24.7L, Mean Corpuscular Hemoglobin Concent 31.8L, Red Cell Distribution Width 15.7H, Platelet Count 214, Mean Platelet Volume 6.3L, Neutrophils (%) (Auto) 79.1H, Lymphocytes (%) (Auto) 9.2L, Monocytes (%) (Auto) 10.7H, Eosinophils (%) (Auto) 0.0, Basophils (%) (Auto) 1.1 12/17/18 23:56: Activated Partial Thromboplast Time 83H 12/18/18 04:00: White Blood Count 6.9, Red Blood Count 3.87L, Hemoglobin 9.5L, Hematocrit 30.9L , Mean Corpuscular Volume 80, Mean Corpuscular Hemoglobin 24.6L, Mean Corpuscular Hemoglobin Concent 30.8L, Red Cell Distribution Width 16.2H, Platelet Count 210, Mean Platelet Volume 6.7, Neutrophils (%) (Auto) 71.1, Lymphocytes (%) (Auto) 15.6L, Monocytes (%) (Auto) 12.5H, Eosinophils (%) (Auto ) 0.1, Basophils (%) (Auto) 0.8, Activated Partial Thromboplast Time 91H, Sodium Level 131L, Potassium Level 4.8, Chloride Level 93L, Carbon Dioxide Level 29, Anion Gap 9, Blood Urea Nitrogen 60H, Creatinine 6.7H, Estimat Glomerular Filtration Rate 8.3, Glucose Level 123H, Calcium Level 8.6, Phosphorus Level 5.4H, Magnesium Level 2.2, Total Bilirubin 0.3, Aspartate Amino Transf (AST/SGOT) 17, Alanine Aminotransferase (ALT/SGPT) 10L, Alkaline Phosphatase 158H, C-Reactive Protein, Quantitative 18.1H, Pro-B-Type Natriuretic Peptide > 86952A, Total Protein 6.5, Albumin 2.0L, Globulin 4.5, Albumin/Globulin Ratio 0.4L Height (Feet): 5 Height (Inches): 4.00 Weight (Pounds): 226 Objective PE General Appearance: mild distress, moderate distress Lines, tubes and drains: peripheral HEENT: EOMI, thrush, tonsils swollen ++trach Neck: normal inspection Respiratory/Chest: decreased breath sounds, accessory muscle use Cardiovascular/Chest: tachycardia Abdomen: soft, no organomegaly, no mass, ++ peg Extremities: other Skin Exam: warm/dry, rash Neurologic: alert, responsive Zacarias Khoury MD December 18, 2018 15:56
--- NOTE | 2018-12-18 16:00 | Neurology Progress Note ---
Interim History Interim History Interim History Mr. Restrepo feels relatively well. He is subdued today. He just got back from a right upper extremity vascular procedure. He is breathing well. He has not had any weaning trial today. He feels generally weaker. His right foot is still painful. The mind has not been very clear. He has not walked yet. The right upper extremity is still swollen and painful. He denies any new neurologic symptoms. Review of Systems Neuro Review of Systems Benign. Objective Physical Exam Last Vital Signs Date Time Temp Pulse Resp B/P (MAP) Pulse Ox O2 Delivery O2 Flow Rate FiO2 12/18/18 15:14 69 20 100 Mechanical Ventilator 35 12/18/18 14:30 99.0 102/37 12/16/18 13:50 12.0 Laboratory Tests Test 12/17/18 18:00 12/17/18 23:56 12/18/18 04:00 White Blood Count 11.9 K/UL (4.8-10.8) H 6.9 K/UL (4.8-10.8) Red Blood Count 3.83 M/UL (4.70-6.10) L 3.87 M/UL (4.70-6.10) L Hemoglobin 9.5 G/DL (14.2-18.0) L 9.5 G/DL (14.2-18.0) L Hematocrit 29.8 % (42.0-52.0) L 30.9 % (42.0-52.0) L Mean Corpuscular Volume 78 FL (80-99) L 80 FL (80-99) Mean Corpuscular Hemoglobin 24.7 PG (27.0-31.0) L 24.6 PG (27.0-31.0) L Mean Corpuscular Hemoglobin Concent 31.8 G/DL (32.0-36.0) L 30.8 G/DL (32.0-36.0) L Red Cell Distribution Width 15.7 % (11.6-14.8) H 16.2 % (11.6-14.8) H Platelet Count 214 K/UL (150-450) 210 K/UL (150-450) Mean Platelet Volume 6.3 FL (6.5-10.1) L 6.7 FL (6.5-10.1) Neutrophils (%) (Auto) 79.1 % (45.0-75.0) H 71.1 % (45.0-75.0) Lymphocytes (%) (Auto) 9.2 % (20.0-45.0) L 15.6 % (20.0-45.0) L Monocytes (%) (Auto) 10.7 % (1.0-10.0) H 12.5 % (1.0-10.0) H Eosinophils (%) (Auto) 0.0 % (0.0-3.0) 0.1 % (0.0-3.0) Basophils (%) (Auto) 1.1 % (0.0-2.0) 0.8 % (0.0-2.0) Activated Partial Thromboplast Time 83 SEC (23-33) H 91 SEC (23-33) H Sodium Level 131 MMOL/L (136-145) L Potassium Level 4.8 MMOL/L (3.5-5.1) Chloride Level 93 MMOL/L (98-107) L Carbon Dioxide Level 29 MMOL/L (21-32) Anion Gap 9 mmol/L (5-15) Blood Urea Nitrogen 60 mg/dL (7-18) H Creatinine 6.7 MG/DL (0.55-1.30) H Estimat Glomerular Filtration Rate 8.3 mL/min (>60) Glucose Level 123 MG/DL (74-106) H Calcium Level 8.6 MG/DL (8.5-10.1) Phosphorus Level 5.4 MG/DL (2.5-4.9) H Magnesium Level 2.2 MG/DL (1.8-2.4) Total Bilirubin 0.3 MG/DL (0.2-1.0) Aspartate Amino Transf (AST/SGOT) 17 U/L (15-37) Alanine Aminotransferase (ALT/SGPT) 10 U/L (12-78) L Alkaline Phosphatase 158 U/L (46-116) H C-Reactive Protein, Quantitative 18.1 mg/dL (0.00-0.90) H Pro-B-Type Natriuretic Peptide > 28717 pg/mL (0-125) H Total Protein 6.5 G/DL (6.4-8.2) Albumin 2.0 G/DL (3.4-5.0) L Globulin 4.5 g/dL Albumin/Globulin Ratio 0.4 (1.0-2.7) L Neurologic Exam Objective PHYSICAL EXAMINATION: GENERAL: He is a well-developed and well-nourished, pleasant gentleman, lying in bed connected to a ventilator via a tracheostomy. HEAD: Normocephalic and atraumatic. EENT: Examination benign. NECK: No neck rigidity was observed. He did have a tracheostomy. NEUROLOGICAL EXAMINATION: MENTAL STATUS EXAMINATION: He was somnolent but could be aroused. When aroused, he was awake but not completely alert. He was well oriented except for the exact date. He was unable to cooperate for further mental status testing. SPEECH: Could not be tested, but he was able to mouth words relatively well. LANGUAGE: He was able to comprehend and express himself relatively well. CRANIAL NERVES EXAMINATION: II: The visual mckeon were intact to confrontation testing. III, IV & : The external ocular movements were full and the pupils 3 mm in diameter, equal, round, regular, and reactive sluggishly to light. V: He had normal facial sensations, and the temporales, masseters, and pterygoids functioned normally. VII: He had normal facial expressions and no facial asymmetry. VIII: Hearing was decreased bilaterally with worse hearing on the left side compared to the right. IX: The palate moved symmetrically on phonation. X: Could not be tested. XI: The sternocleidomastoids and trapezii functioned normally. XII: The tongue was in the midline without any fasciculations or atrophy. MOTOR SYSTEM: The tone was normal in all four extremities. Examination of muscle mass revealed generalized muscle wasting. Examination of power revealed G 5/5 power except for G 4+/5 power in the iliopsoas muscles bilaterally. Power in the right upper extremity was limited by pain. SENSORY EXAMINATION: He had intact sensations to light touch. Other sensory modalities could not be tested adequately. REFLEXES: 1+ and bilaterally symmetrical at the biceps, triceps, brachioradialis , and knees, 0 at both ankles. The plantar responses were flexor bilaterally. COORDINATION: He performed well on [id number] testing. STANCE & GAIT: Were deferred. Impression/Recommendations Diagnostic Impression 1. Mr. Gregg Restrepo is a 68-year-old, right-handed, gentleman with past history of multiple medical problems including hypertension, diabetes mellitus, end-stage renal disease for which he is hemodialysis dependent, prior episodes of sepsis, and prior episodes of encephalopathy, who was admitted to [facility] on October 31, 2018. Following that, he has had a stormy hospital course including pneumonia and sepsis, right foot infection, respiratory failure for which he has needed tracheostomy and in addition he has exhibited an alteration in his mental state with some waxing and waning of his mental state. 2. He feels relatively well. He is subdued today. He just got back from a right upper extremity vascular procedure. He is breathing well. He has not had any weaning trial today. He feels generally weaker. His right foot is still painful. The mind has not been very clear. He has not walked yet. The right upper extremity is still swollen and painful. He denies any new neurologic symptoms. 3. On neurological examination, at this time, he is fully oriented, has mild problems with recent and remote memory, normal visuospatial function, minimally impaired higher cognitive function. He is able to comprehend and express himself well. He does have mild G 4+/5 weakness in the iliopsoas muscles bilaterally, globally diminished deep tendon reflexes with loss of ankle jerks, but no definite focal or lateralizing neurological findings. 4. His latest laboratory data on my initial evaluation revealed that he was anemic with a hemoglobin of 10.8 G. His last blood gas performed on 11/14/2018 revealed that he had a pCO2 elevated at 56.4 with a normal pO2 of 88.3 and normal pH of 7.37. His latest chemistry panel revealed that he was mildly hyponatremic with a sodium of 130, and had a chloride of 90. The BUN was elevated at 75, creatinine elevated at 7.4, glucose elevated at 156, Hemoglobin A1c elevated at 6.9%, Alkaline phosphatase elevated at 131, and ProBNP greater than 35,000. His last B12 level on 11/07/2018 was 723. His last folate on was 18.6. His last TSH on 12/06/2018 was 4.82, which is minimally elevated. 5. The CT scan of the brain performed on 11/10/2018 was benign for acute intracranial pathology. 6. The EEG done on 12/08/18 revealed left temporal dysfunction. 7. The patient's history and neurological examination are most consistent with mild multifactorial encephalopathy, which apparently waxes and wanes, but no definite focal neurological dysfunction. His encephalopathy is worse today. 8. He tells me that he had a brain bleed many years ago. I did review his imaging done at [facility] a few years ago and he had closed head injuries with subarachnoid and subdural blood in the past. Recommendations 1. Continue present management. 2. Continue to correct the patient's toxic metabolic imbalances. 3. Mobilize with PT/OT. 4. Consider getting ENT evaluation for worsening hearing. 5. Observe closely. Pantera Cool M.D., M.S.P.H. Pantera Colo MD December 18, 2018 16:00
--- NOTE | 2018-12-18 16:19 | Infectious Diseases Prog Note ---
Assessment/Plan Problems: (1) G-tube site cellulitis Assessment & Plan: culture from the G tube site grew pseudomonas , S/P ciprofloxacin for 7 days , continue local care and antibiotics as per GI (2) Thrush, oral Assessment & Plan: continue local nystatin as needed , S/P micafungin for three weeks empirically (3) HCV antibody positive Assessment & Plan: no evidence of active infection, with undetectable viral load , suspect due to previous infection , cleared, S/P liver transplant . (4) Foot ulcer Assessment & Plan: in diabetic patient , with MRSA , S/P vancomycin treatment with HD for two weeks , had vascular eval with revascularization, S/P ulcer resection by economics consultant today . bone scan ruled out osteomyelitis of the heel . economics consultant is following (5) DM (diabetes mellitus) Assessment & Plan: recommend tight glycemic control to keep blood glucose between 100-140 (6) CHF (congestive heart failure) Assessment & Plan: on HD , renal is following, monitor daily weight (7) Severe tongue swelling Assessment & Plan: improving , s/p tracheostomy to protect his airway since respiratory status worsened . now improving, pulmonary is following (8) Pleural effusion Assessment & Plan: recurrent on the right, with lung collapse , S/P thoracentesis X2 with removal of 1.5 cc of clear fluids. PREVIOUS culture were negative with negative cytology Subjective Constitutional: Reports: no symptoms HEENT: Reports: no symptoms Respiratory: Reports: no symptoms Breasts: Reports: no symptoms Cardiovascular: Reports: no symptoms Gastrointestinal/Abdominal: Reports: no symptoms Genitourinary: Reports: no symptoms Psychiatric: Reports: no symptoms Skin: Reports: no symptoms Endocrine: Reports: no symptoms Hematologic: Reports: no symptoms Musculoskeletal: Reports: no symptoms Allergies: Coded Allergies: CEPHALEXIN (Unverified Allergy, Unknown, 02/24/14) SULFAMETHOXAZOLE (Unverified Allergy, Unknown, 02/24/14) TRIMETHOPRIM (Unverified Allergy, Unknown, 02/24/14) Subjective he was comfortable, lying in bed, no tongue swelling , awake and responsive, no fever or chills, no significant secretions , no SOB . has less thrush on his tongue Objective Vital Signs Last 24 Hour Vital Signs Date Time Temp Pulse Resp B/P (MAP) Pulse Ox O2 Delivery O2 Flow Rate FiO2 12/18/18 15:14 69 20 100 Mechanical Ventilator 35 12/18/18 15:04 70 24 100 Mechanical Ventilator 35 12/18/18 15:04 71 24 35 12/18/18 14:46 72 17 100 12/18/18 14:30 99.0 71 18 102/37 100 Mechanical Ventilator 100 12/18/18 14:15 72 17 110/37 100 Mechanical Ventilator 100 12/18/18 14:00 72 18 106/38 100 Mechanical Ventilator 100 12/18/18 13:52 83 16 10 12/18/18 13:45 71 17 119/37 100 Mechanical Ventilator 100 12/18/18 13:40 73 16 133/41 100 Mechanical Ventilator 100 12/18/18 13:35 99.2 83 16 140/37 100 Mechanical Ventilator 100 83 12/18/18 12:00 97.7 73 20 112/50 (70) 100 72 62 12/18/18 12:00 35 12/18/18 12:00 Mechanical Ventilator 12/18/18 12:00 73 12/18/18 11:06 75 22 100 Mechanical Ventilator 35 12/18/18 10:56 71 25 100 Mechanical Ventilator 35 12/18/18 10:49 71 25 35 12/18/18 09:25 69 28 35 12/18/18 08:00 Mechanical Ventilator 12/18/18 08:00 97.9 71 20 148/80 (102) 100 70 62 12/18/18 08:00 69 12/18/18 08:00 35 12/18/18 07:28 69 16 100 Mechanical Ventilator 35 12/18/18 07:18 66 22 100 Mechanical Ventilator 35 12/18/18 07:17 67 23 35 12/18/18 05:44 102/58 12/18/18 05:11 70 23 35 12/18/18 04:00 Mechanical Ventilator 12/18/18 04:00 35 12/18/18 04:00 98.4 71 20 100/58 (72) 100 60 62 12/18/18 03:34 70 12/18/18 03:20 69 23 60 12/18/18 01:24 69 22 80 12/18/18 00:00 98.4 62 24 107/56 (73) 100 59 60 12/18/18 00:00 Mechanical Ventilator 12/17/18 23:34 72 12/17/18 23:09 73 22 80 12/17/18 21:35 70 21 80 12/17/18 21:00 68 97/52 12/17/18 20:00 98.6 69 16 97/52 (67) 100 65 64 12/17/18 20:00 Mechanical Ventilator 12/17/18 20:00 35 12/17/18 19:40 68 16 100 Mechanical Ventilator 35 12/17/18 19:34 68 22 100 Mechanical Ventilator 35 12/17/18 19:33 68 19 80 12/17/18 19:12 69 12/17/18 18:08 114/54 12/17/18 17:15 72 23 80 12/17/18 17:01 72 12/17/18 16:55 98.9 74 22 114/54 93 Mechanical Ventilator 100 12/17/18 16:55 100 12/17/18 16:40 71 21 99/50 95 Mechanical Ventilator 100 12/17/18 16:30 99.2 72 21 108/31 (56) 95 72 69 12/17/18 16:30 70 28 116/42 95 Mechanical Ventilator 100 12/17/18 16:20 72 32 116/42 93 Mechanical Ventilator 100 Height (Feet): 5 Height (Inches): 4.00 Weight (Pounds): 226 General Appearance: WD/WN, no acute distress HEENT: normocephalic, atraumatic, anicteric, mucous membranes moist, PERRL Respiratory/Chest: chest wall non-tender, lungs clear, normal breath sounds, no respiratory distress, no accessory muscle use Cardiovascular: normal peripheral pulses, normal rate, regular rhythm, no gallop/murmur, no JVD Abdomen: normal bowel sounds, soft, non tender, no organomegaly, non distended , no mass, no scars Genitourinary: normal external genitalia Extremities: no cyanosis, no clubbing Skin: no rash, no lesions 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: alert, oriented x 3, responsive Lymphatic: no neck adenopathy, no groin adenopathy Musculoskeletal: normal muscle bulk, no effusion Laboratory Tests Test 12/17/18 18:00 12/17/18 23:56 12/18/18 04:00 White Blood Count 11.9 K/UL (4.8-10.8) H 6.9 K/UL (4.8-10.8) Red Blood Count 3.83 M/UL (4.70-6.10) L 3.87 M/UL (4.70-6.10) L Hemoglobin 9.5 G/DL (14.2-18.0) L 9.5 G/DL (14.2-18.0) L Hematocrit 29.8 % (42.0-52.0) L 30.9 % (42.0-52.0) L Mean Corpuscular Volume 78 FL (80-99) L 80 FL (80-99) Mean Corpuscular Hemoglobin 24.7 PG (27.0-31.0) L 24.6 PG (27.0-31.0) L Mean Corpuscular Hemoglobin Concent 31.8 G/DL (32.0-36.0) L 30.8 G/DL (32.0-36.0) L Red Cell Distribution Width 15.7 % (11.6-14.8) H 16.2 % (11.6-14.8) H Platelet Count 214 K/UL (150-450) 210 K/UL (150-450) Mean Platelet Volume 6.3 FL (6.5-10.1) L 6.7 FL (6.5-10.1) Neutrophils (%) (Auto) 79.1 % (45.0-75.0) H 71.1 % (45.0-75.0) Lymphocytes (%) (Auto) 9.2 % (20.0-45.0) L 15.6 % (20.0-45.0) L Monocytes (%) (Auto) 10.7 % (1.0-10.0) H 12.5 % (1.0-10.0) H Eosinophils (%) (Auto) 0.0 % (0.0-3.0) 0.1 % (0.0-3.0) Basophils (%) (Auto) 1.1 % (0.0-2.0) 0.8 % (0.0-2.0) Activated Partial Thromboplast Time 83 SEC (23-33) H 91 SEC (23-33) H Sodium Level 131 MMOL/L (136-145) L Potassium Level 4.8 MMOL/L (3.5-5.1) Chloride Level 93 MMOL/L (98-107) L Carbon Dioxide Level 29 MMOL/L (21-32) Anion Gap 9 mmol/L (5-15) Blood Urea Nitrogen 60 mg/dL (7-18) H Creatinine 6.7 MG/DL (0.55-1.30) H Estimat Glomerular Filtration Rate 8.3 mL/min (>60) Glucose Level 123 MG/DL (74-106) H Calcium Level 8.6 MG/DL (8.5-10.1) Phosphorus Level 5.4 MG/DL (2.5-4.9) H Magnesium Level 2.2 MG/DL (1.8-2.4) Total Bilirubin 0.3 MG/DL (0.2-1.0) Aspartate Amino Transf (AST/SGOT) 17 U/L (15-37) Alanine Aminotransferase (ALT/SGPT) 10 U/L (12-78) L Alkaline Phosphatase 158 U/L (46-116) H C-Reactive Protein, Quantitative 18.1 mg/dL (0.00-0.90) H Pro-B-Type Natriuretic Peptide > 09808 pg/mL (0-125) H Total Protein 6.5 G/DL (6.4-8.2) Albumin 2.0 G/DL (3.4-5.0) L Globulin 4.5 g/dL Albumin/Globulin Ratio 0.4 (1.0-2.7) L Current Medications Medications (Trade) Dose Ordered Sig/Aleks Route PRN Reason Start Time Stop Time Status Last Admin Dose Admin Albuterol/ Ipratropium (Albuterol/ Ipratropium) 3 ml QIDRT HHN 12/17/18 07:00 12/20/18 14:44 12/18/18 15:05 Aspirin (ASA) 162 mg DAILY GT 12/08/18 09:00 12/20/18 08:59 12/17/18 08:47 Atorvastatin Calcium (Lipitor) 10 mg BEDTIME NG 12/01/18 21:00 12/21/18 20:59 12/17/18 21:08 Bacitracin (Bacitracin) 1 applic EVERY 12 HOURS TOPIC 12/11/18 21:00 01/06/19 17:59 12/18/18 09:00 Carvedilol (Coreg) 6.25 mg EVERY 12 HOURS PEG 12/06/18 21:00 01/03/19 20:59 12/17/18 08:48 Clotrimazole (Lotrimin) 1 applic BID TOPIC 12/07/18 18:00 01/06/19 17:59 12/18/18 09:00 Collagenase (Santyl) 1 applic DAILY TOPIC 12/19/18 09:00 01/18/19 08:59 Collagenase (Santyl) 1 applic ONCE TOPIC 12/18/18 18:00 12/18/18 21:00 Dextrose (Dextrose 50%) 25 ml Q30M PRN IV Hypoglycemia 12/01/18 19:30 12/31/18 19:29 Dextrose (Dextrose 50%) 50 ml Q30M PRN IV Hypoglycemia 12/01/18 19:30 12/31/18 19:29 Docusate Sodium (Colace) 100 mg EVERY 8 HOURS PRN GT constipation 11/24/18 18:51 12/20/18 18:50 Escitalopram Oxalate (Lexapro) 10 mg DAILY GT 12/18/18 09:00 01/17/19 08:59 12/18/18 09:00 Heparin Sodium/ Dextrose 500 ml @ 36.904 mls/ hr ADJUST PER PROTOCOL IV 12/18/18 07:55 01/16/19 17:29 12/18/18 07:58 Hydralazine HCl (Apresoline) 10 mg Q6H PRN GT For High Blood Pressure 12/03/18 16:45 01/02/19 16:44 12/07/18 04:47 Hydromorphone HCl (Dilaudid) 0.5 mg Q15M PRN IVP Severe Pain (Pain Scale 7-10) 12/18/18 14:00 12/18/18 20:00 Hydromorphone HCl (Dilaudid) 1 mg Q4H PRN GT For Pain 12/14/18 15:30 12/21/18 15:29 12/18/18 10:53 Insulin Aspart (NovoLOG) EVERY 6 HOURS SUBQ 12/02/18 00:00 12/31/18 20:59 12/15/18 23:42 Lactulose (Cephulac) 20 gm THREE TIMES A DAY PRN GT Constipation 11/24/18 18:51 12/23/18 18:50 Lansoprazole (Prevacid) 30 mg BID GT 11/20/18 09:00 12/20/18 08:59 12/18/18 09:00 Mirtazapine (Remeron) 7.5 mg BEDTIME GT 12/14/18 21:00 01/13/19 20:59 12/17/18 21:08 Nicotine (Nicoderm) 1 patch Q24H TDERMAL 12/01/18 22:15 12/21/18 22:14 12/17/18 21:11 Nitroglycerin (Nitro-Bid) 1 inch TID@0600,1200,1800 TOPIC 12/07/18 12:00 01/06/19 11:59 12/17/18 18:08 Sevelamer Carbonate (Renvela) 800 mg Q8HR GT 11/20/18 14:00 12/20/18 13:59 12/18/18 05:43 Tacrolimus (Prograf) 2 mg MoWeFr@0000,1200 ORAL 12/07/18 00:00 12/21/18 00:00 12/18/18 15:02 Tacrolimus (Prograf) 2 mg SuTuThSa@0900,2100 ORAL 12/17/18 21:00 01/16/19 20:59 12/17/18 21:13 Francois Landis M.D. December 18, 2018 16:19
--- NOTE | 2018-12-18 16:22 | General Progress Note ---
Progress Note Progress Note late entry progress not for 12/17/2018 Assessment/Plan Problems: (1) G-tube site cellulitis Assessment & Plan: culture from the G tube site grew pseudomonas , continue ciprofloxacin for 7 days , continue local care and antibiotics as per GI (2) Thrush, oral Assessment & Plan: continue local nystatin , S/P micafungin for three weeks empirically (3) HCV antibody positive Assessment & Plan: no evidence of active infection, with undetectable viral load , suspect due to previous infection , cleared, S/P liver transplant . (4) Foot ulcer Assessment & Plan: in diabetic patient , with MRSA , S/P vancomycin treatment with HD for two weeks , recommend vascular eval . bone scan ruled out osteomyelitis of the heel . follow up with recycling assistant (5) DM (diabetes mellitus) Assessment & Plan: recommend tight glycemic control to keep blood glucose between 100-140 (6) CHF (congestive heart failure) Assessment & Plan: on HD , renal is following, monitor daily weight (7) Severe tongue swelling Assessment & Plan: improving , s/p tracheostomy to protect his airway since respiratory status worsened . now improving, pulmonary is following (8) Pleural effusion Assessment & Plan: recurrent on the right, with lung collapse , S/P thoracentesis X2 with removal of 1.5 cc of clear fluids. PREVIOUS culture were negative with negative cytology Subjective Constitutional: Reports: no symptoms HEENT: Reports: no symptoms Respiratory: Reports: no symptoms Breasts: Reports: no symptoms Cardiovascular: Reports: no symptoms Gastrointestinal/Abdominal: Reports: no symptoms Genitourinary: Reports: no symptoms Neurologic: Reports: no symptoms Psychiatric: Reports: no symptoms Skin: Reports: no symptoms Endocrine: Reports: no symptoms Hematologic: Reports: no symptoms Musculoskeletal: Reports: no symptoms Allergies: Coded Allergies: CEPHALEXIN (Unverified Allergy, Unknown, 02/24/14) SULFAMETHOXAZOLE (Unverified Allergy, Unknown, 02/24/14) TRIMETHOPRIM (Unverified Allergy, Unknown, 02/24/14) Subjective he was comfortable, lying in bed, no tongue swelling , awake and responsive, no fever or chills, no significant secretions , no SOB . has less thrush on his tongue Objective Vital Signs Last 24 Hour Vital Signs Date Time Temp Pulse Resp B/P (MAP) Pulse Ox O2 Delivery O2 Flow Rate FiO2 12/13/18 20:59 80 24 40 12/13/18 20:47 72 130/76 12/13/18 19:19 72 24 40 12/13/18 17:31 131/64 12/13/18 17:27 69 23 40 12/13/18 16:00 97.9 69 21 155/75 (101) 100 12/13/18 16:00 Mechanical Ventilator 12/13/18 16:00 40 12/13/18 15:27 71 12/13/18 15:16 88 26 40 12/13/18 15:14 99 12/13/18 13:27 74 24 40 12/13/18 12:28 131/64 12/13/18 12:00 98.1 72 20 131/64 (86) 99 12/13/18 12:00 40 12/13/18 12:00 75 12/13/18 12:00 Mechanical Ventilator 12/13/18 11:12 68 23 40 12/13/18 09:06 78 24 40 12/13/18 08:46 70 92/47 12/13/18 08:00 Mechanical Ventilator 12/13/18 08:00 75 12/13/18 08:00 40 12/13/18 08:00 97.7 70 21 92/47 (62) 99 12/13/18 06:52 70 23 40 12/13/18 05:01 132/70 12/13/18 04:50 70 23 40 12/13/18 04:00 40 12/13/18 04:00 Mechanical Ventilator 12/13/18 04:00 98.0 73 22 132/70 (90) 100 12/13/18 03:35 71 12/13/18 03:06 76 24 40 12/13/18 01:10 75 22 40 12/13/18 00:00 75 12/13/18 00:00 Mechanical Ventilator 12/13/18 00:00 98.2 70 21 115/81 (92) 100 12/12/18 23:27 71 25 40 Height (Feet): 5 Height (Inches): 5.00 Weight (Pounds): 218 General Appearance: WD/WN, no acute distress HEENT: normocephalic, atraumatic, anicteric, mucous membranes moist, PERRL, pharynx normal, supple, no JVD, status post trach Respiratory/Chest: chest wall non-tender, no respiratory distress, no accessory muscle use, decreased breath sounds, crackles/rales Cardiovascular: normal peripheral pulses, normal rate, regular rhythm, no gallop/murmur, no JVD Abdomen: normal bowel sounds, soft, non tender, no organomegaly, non distended , no mass, no scars Genitourinary: normal external genitalia Extremities: no cyanosis, no clubbing Skin: no rash, no lesions, ulcers 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, alert, responsive Lymphatic: no neck adenopathy, no groin adenopathy Musculoskeletal: normal muscle bulk, no effusion Current Medications Medications (Trade) Dose Ordered Sig/Aleks Route PRN Reason Start Time Stop Time Status Last Admin Dose Admin Aspirin (ASA) 162 mg DAILY GT 12/08/18 09:00 12/20/18 08:59 12/13/18 08:46 Atorvastatin Calcium (Lipitor) 10 mg BEDTIME NG 12/01/18 21:00 12/21/18 20:59 12/13/18 20:46 Bacitracin (Bacitracin) 1 applic EVERY 12 HOURS TOPIC 12/11/18 21:00 01/06/19 17:59 12/13/18 20:47 Carvedilol (Coreg) 6.25 mg EVERY 12 HOURS PEG 12/06/18 21:00 01/03/19 20:59 12/13/18 20:47 Ciprofloxacin (Cipro 500mg tab) 500 mg Q24H ORAL 12/10/18 21:00 12/17/18 20:59 12/13/18 20:46 Clotrimazole (Lotrimin) 1 applic BID TOPIC 12/07/18 18:00 01/06/19 17:59 12/13/18 17:31 Dextrose (Dextrose 50%) 25 ml Q30M PRN IV Hypoglycemia 12/01/18 19:30 12/31/18 19:29 Dextrose (Dextrose 50%) 50 ml Q30M PRN IV Hypoglycemia 12/01/18 19:30 12/31/18 19:29 Docusate Sodium (Colace) 100 mg EVERY 8 HOURS PRN GT constipation 11/24/18 18:51 12/20/18 18:50 Hydralazine HCl (Apresoline) 10 mg Q6H PRN GT For High Blood Pressure 12/03/18 16:45 01/02/19 16:44 12/07/18 04:47 Hydromorphone HCl (Dilaudid) 1 mg Q4H PRN GT For Pain 12/07/18 11:30 12/14/18 11:29 12/13/18 20:47 Insulin Aspart (NovoLOG) EVERY 6 HOURS SUBQ 12/02/18 00:00 12/31/18 20:59 12/13/18 17:34 Lactulose (Cephulac) 20 gm THREE TIMES A DAY PRN GT Constipation 11/24/18 18:51 12/23/18 18:50 Lansoprazole (Prevacid) 30 mg BID GT 11/20/18 09:00 12/20/18 08:59 12/13/18 17:31 Nicotine (Nicoderm) 1 patch Q24H TDERMAL 12/01/18 22:15 12/21/18 22:14 12/13/18 21:29 Nitroglycerin (Nitro-Bid) 1 inch TID@0600,1200,1800 TOPIC 12/07/18 12:00 01/06/19 11:59 12/13/18 17:31 Olanzapine (ZyPREXA) 2.5 mg Q6H PRN ORAL agitation 11/15/18 23:00 12/15/18 22:59 12/06/18 00:23 Sevelamer Carbonate (Renvela) 800 mg Q8HR GT 11/20/18 14:00 12/20/18 13:59 12/13/18 21:28 Tacrolimus (Prograf) 2 mg MoWeFr@0000,1200 ORAL 12/07/18 00:00 12/21/18 00:00 12/11/18 12:10 Tacrolimus (Prograf) 2 mg SuTuThSa@0900,2100 ORAL 12/05/18 21:00 01/04/19 20:59 12/13/18 20:46 Francois Landis M.D. December 18, 2018 16:22
--- NOTE | 2018-12-18 16:41 | Nephrology Progress Note ---
Assessment/Plan Problem List: (1) ESRD (end stage renal disease) on dialysis (2) Foot ulcer (3) CHF (congestive heart failure) Assessment: Ej Fx 20 % (4) Pacemaker (5) Acute respiratory failure Assessment: with Co2 retention (6) G-tube site cellulitis Assessment ESRD with high K and SOB on admit Foot ulcer, likely infected High Troponin likely NSTMI Pacer , Pleural effusion s/p CABGS s/p Liver transplant Plan doing PT , improving next HD 12/19, as today in procedure s GT site infection, topical antibiotic Neuro note appreciated placement in process vascular esteban regarding heel ulcer per Dr Mcgill pain med change to dilaudid GT Now has tracheostomy and PEG Adjust BP meds add nitro paste TID Antibiotics by ID per cardio and ID Podiatry and Vascular surgical fu ? DC planning? PRIMARY MD CHANGED TO DR [facility] Subjective ROS Limited/Unobtainable: No Objective Objective Last 24 Hour Vital Signs Date Time Temp Pulse Resp B/P (MAP) Pulse Ox O2 Delivery O2 Flow Rate FiO2 12/18/18 15:14 69 20 100 Mechanical Ventilator 35 12/18/18 15:04 70 24 100 Mechanical Ventilator 35 12/18/18 15:04 71 24 35 12/18/18 14:46 72 17 100 12/18/18 14:30 99.0 71 18 102/37 100 Mechanical Ventilator 100 12/18/18 14:15 72 17 110/37 100 Mechanical Ventilator 100 12/18/18 14:00 72 18 106/38 100 Mechanical Ventilator 100 12/18/18 13:52 83 16 10 12/18/18 13:45 71 17 119/37 100 Mechanical Ventilator 100 12/18/18 13:40 73 16 133/41 100 Mechanical Ventilator 100 12/18/18 13:35 99.2 83 16 140/37 100 Mechanical Ventilator 100 83 12/18/18 12:00 97.7 73 20 112/50 (70) 100 72 62 12/18/18 12:00 35 12/18/18 12:00 Mechanical Ventilator 12/18/18 12:00 73 12/18/18 11:06 75 22 100 Mechanical Ventilator 35 12/18/18 10:56 71 25 100 Mechanical Ventilator 35 12/18/18 10:49 71 25 35 12/18/18 09:25 69 28 35 12/18/18 08:00 Mechanical Ventilator 12/18/18 08:00 97.9 71 20 148/80 (102) 100 70 62 12/18/18 08:00 69 12/18/18 08:00 35 12/18/18 07:28 69 16 100 Mechanical Ventilator 35 12/18/18 07:18 66 22 100 Mechanical Ventilator 35 12/18/18 07:17 67 23 35 12/18/18 05:44 102/58 12/18/18 05:11 70 23 35 12/18/18 04:00 Mechanical Ventilator 12/18/18 04:00 35 12/18/18 04:00 98.4 71 20 100/58 (72) 100 60 62 12/18/18 03:34 70 12/18/18 03:20 69 23 60 12/18/18 01:24 69 22 80 12/18/18 00:00 98.4 62 24 107/56 (73) 100 59 60 12/18/18 00:00 Mechanical Ventilator 12/17/18 23:34 72 12/17/18 23:09 73 22 80 12/17/18 21:35 70 21 80 12/17/18 21:00 68 97/52 12/17/18 20:00 98.6 69 16 97/52 (67) 100 65 64 12/17/18 20:00 Mechanical Ventilator 12/17/18 20:00 35 12/17/18 19:40 68 16 100 Mechanical Ventilator 35 12/17/18 19:34 68 22 100 Mechanical Ventilator 35 12/17/18 19:33 68 19 80 12/17/18 19:12 69 12/17/18 18:08 114/54 12/17/18 17:15 72 23 80 12/17/18 17:01 72 12/17/18 16:55 98.9 74 22 114/54 93 Mechanical Ventilator 100 12/17/18 16:55 100 Intake and Output 12/17/18 12/18/18 19:00 07:00 Intake Total 1136.904 ml 50 ml Output Total 100 ml Balance 1036.904 ml 50 ml Free Water 50 ml IV Total 1136.904 ml Estimated Blood Loss 100 ml Laboratory Tests 12/17/18 18:00: White Blood Count 11.9H, Red Blood Count 3.83L, Hemoglobin 9.5L, Hematocrit 29.8L, Mean Corpuscular Volume 78L, Mean Corpuscular Hemoglobin 24.7L, Mean Corpuscular Hemoglobin Concent 31.8L, Red Cell Distribution Width 15.7H, Platelet Count 214, Mean Platelet Volume 6.3L, Neutrophils (%) (Auto) 79.1H, Lymphocytes (%) (Auto) 9.2L, Monocytes (%) (Auto) 10.7H, Eosinophils (%) (Auto) 0.0, Basophils (%) (Auto) 1.1 12/17/18 23:56: Activated Partial Thromboplast Time 83H 12/18/18 04:00: White Blood Count 6.9, Red Blood Count 3.87L, Hemoglobin 9.5L, Hematocrit 30.9L , Mean Corpuscular Volume 80, Mean Corpuscular Hemoglobin 24.6L, Mean Corpuscular Hemoglobin Concent 30.8L, Red Cell Distribution Width 16.2H, Platelet Count 210, Mean Platelet Volume 6.7, Neutrophils (%) (Auto) 71.1, Lymphocytes (%) (Auto) 15.6L, Monocytes (%) (Auto) 12.5H, Eosinophils (%) (Auto ) 0.1, Basophils (%) (Auto) 0.8, Activated Partial Thromboplast Time 91H, Sodium Level 131L, Potassium Level 4.8, Chloride Level 93L, Carbon Dioxide Level 29, Anion Gap 9, Blood Urea Nitrogen 60H, Creatinine 6.7H, Estimat Glomerular Filtration Rate 8.3, Glucose Level 123H, Calcium Level 8.6, Phosphorus Level 5.4H, Magnesium Level 2.2, Total Bilirubin 0.3, Aspartate Amino Transf (AST/SGOT) 17, Alanine Aminotransferase (ALT/SGPT) 10L, Alkaline Phosphatase 158H, C-Reactive Protein, Quantitative 18.1H, Pro-B-Type Natriuretic Peptide > 62586F, Total Protein 6.5, Albumin 2.0L, Globulin 4.5, Albumin/Globulin Ratio 0.4L Height (Feet): 5 Height (Inches): 4.00 Weight (Pounds): 226 General Appearance: no apparent distress Objective no other change Nakul Stevens MD December 18, 2018 16:41
--- NOTE | 2018-12-18 23:41 | Psych Consult Progress Note ---
Psychiatry Progress Note Psychiatry Progress Note Subjective the pt is able to sleep better anxiety improved still hopeless Medications Current Medications Medications (Trade) Dose Ordered Sig/Aleks Route PRN Reason Start Time Stop Time Status Last Admin Dose Admin Albuterol/ Ipratropium (Albuterol/ Ipratropium) 3 ml QIDRT HHN 12/17/18 07:00 12/20/18 14:44 12/18/18 19:30 Aspirin (ASA) 162 mg DAILY GT 12/08/18 09:00 12/20/18 08:59 12/17/18 08:47 Atorvastatin Calcium (Lipitor) 10 mg BEDTIME NG 12/01/18 21:00 12/21/18 20:59 12/18/18 21:25 Bacitracin (Bacitracin) 1 applic EVERY 12 HOURS TOPIC 12/11/18 21:00 01/06/19 17:59 12/18/18 21:25 Carvedilol (Coreg) 6.25 mg EVERY 12 HOURS PEG 12/06/18 21:00 01/03/19 20:59 12/18/18 21:25 Clotrimazole (Lotrimin) 1 applic BID TOPIC 12/07/18 18:00 01/06/19 17:59 12/18/18 18:16 Collagenase (Santyl) 1 applic DAILY TOPIC 12/19/18 09:00 01/18/19 08:59 Dextrose (Dextrose 50%) 25 ml Q30M PRN IV Hypoglycemia 12/01/18 19:30 12/31/18 19:29 Dextrose (Dextrose 50%) 50 ml Q30M PRN IV Hypoglycemia 12/01/18 19:30 12/31/18 19:29 Docusate Sodium (Colace) 100 mg EVERY 8 HOURS PRN GT constipation 11/24/18 18:51 12/20/18 18:50 Escitalopram Oxalate (Lexapro) 10 mg DAILY GT 12/18/18 09:00 01/17/19 08:59 12/18/18 09:00 Heparin Sodium/ Dextrose 500 ml @ 36.904 mls/ hr ADJUST PER PROTOCOL IV 12/18/18 07:55 01/16/19 17:29 12/18/18 21:42 Hydralazine HCl (Apresoline) 10 mg Q6H PRN GT For High Blood Pressure 12/03/18 16:45 01/02/19 16:44 12/07/18 04:47 Hydromorphone HCl (Dilaudid) 1 mg Q4H PRN GT For Pain 12/14/18 15:30 12/21/18 15:29 12/18/18 22:10 Insulin Aspart (NovoLOG) EVERY 6 HOURS SUBQ 12/02/18 00:00 12/31/18 20:59 12/18/18 18:10 Lactulose (Cephulac) 20 gm THREE TIMES A DAY PRN GT Constipation 11/24/18 18:51 12/23/18 18:50 Lansoprazole (Prevacid) 30 mg BID GT 11/20/18 09:00 12/20/18 08:59 12/18/18 18:08 Mirtazapine (Remeron) 7.5 mg BEDTIME GT 12/14/18 21:00 01/13/19 20:59 12/18/18 21:25 Nicotine (Nicoderm) 1 patch Q24H TDERMAL 12/01/18 22:15 12/21/18 22:14 12/18/18 21:26 Nitroglycerin (Nitro-Bid) 1 inch TID@0600,1200,1800 TOPIC 12/07/18 12:00 01/06/19 11:59 12/17/18 18:08 Sevelamer Carbonate (Renvela) 800 mg Q8HR GT 11/20/18 14:00 12/20/18 13:59 12/18/18 21:26 Tacrolimus (Prograf) 2 mg MoWeFr@0000,1200 ORAL 12/07/18 00:00 12/21/18 00:00 12/18/18 15:02 Tacrolimus (Prograf) 2 mg SuTuThSa@0900,2100 ORAL 12/17/18 21:00 01/16/19 20:59 12/17/18 21:13 Allergies: Coded Allergies: CEPHALEXIN (Unverified Allergy, Unknown, 02/24/14) SULFAMETHOXAZOLE (Unverified Allergy, Unknown, 02/24/14) TRIMETHOPRIM (Unverified Allergy, Unknown, 02/24/14) Objective Data Height (Feet): 5 Height (Inches): 4.00 Weight (Pounds): 226 General Appearance: WD/WN, no apparent distress, alert, overweight, alert oriented x3 Appearance: disheveled Behavior Mannerisms: good eye contact Mental Status Exam - Affect: constricted Mental Status Exam - Mood: depressed, anxious Mental Status Exam - Thought P: goal-directed Mental Status Exam - Suicidal: not present Assessment/Plan Problem List: (1) Encephalopathy acute ICD Codes: G93.40 - Encephalopathy, unspecified SNOMED: 52293251, 582055172 Status: stable Assessment/Plan: lexapro 10mg po qam remeron 7.5mg po qhs the pt has capacity to make decisions. Jeffrey Lala MD December 18, 2018 23:41
[2018-12-19] VITALS (7 sets, daily range): BP systolic 90–150; BP diastolic 42–76
[2018-12-19] MEDS: HYDROmorphone 2mg tab GT PRN ×5 (02:10→23:05)
[2018-12-19] MEDS: Nitroglycerin 2% oint pkt TOPIC SCH ×3 (06:00→18:00)
[2018-12-19] MEDS: Renvela 800mg Pkt GT SCH ×3 (06:12→21:31)
[2018-12-19] MEDS: NovoLOG Insulin Flexpen SUBQ SCH ×4 (06:14→23:38)
[2018-12-19] MEDS: Albuterol/Ipratropium 3ml neb HHN SCH ×4 (07:07→19:15)
--- NOTE | 2018-12-19 07:35 | General Progress Note ---
Assessment/Plan Problem List: (1) Transplant ICD Codes: Z94.9 - Transplanted organ and tissue status, unspecified SNOMED: 714312684 (2) HTN (hypertension) ICD Codes: I10 - Essential (primary) hypertension SNOMED: 16232165 (3) Pacemaker ICD Codes: Z95.0 - Presence of cardiac pacemaker SNOMED: 028867821 (4) CHF (congestive heart failure) ICD Codes: I50.9 - Heart failure, unspecified SNOMED: 19752267 (5) DM (diabetes mellitus) ICD Codes: E11.9 - Type 2 diabetes mellitus without complications SNOMED: 78458927 (6) Foot ulcer ICD Codes: L97.509 - Non-pressure chronic ulcer of other part of unspecified foot with unspecified severity SNOMED: 46809593 Qualifiers: Qualified Codes: L97.511 - Non-pressure chronic ulcer of other part of right foot limited to breakdown of skin (7) ESRD (end stage renal disease) on dialysis ICD Codes: N18.6 - End stage renal disease; Z99.2 - Dependence on renal dialysis SNOMED: 319188280 Status: stable Assessment/Plan: History of liver transplant, currently on Prograf C. difficile negative status post tracheostomy and PEG Infected G-tube site, fu ID recs would care cx >> GRAM NEGATIVE BACILLUS GT site care BID/prn topical abx around GT site per ID HD per nephro cont tacrolimus prn transfusions ppi zofran prn bowel regimen follow labs supportive care Subjective ROS Limited/Unobtainable: No Allergies: Coded Allergies: CEPHALEXIN (Unverified Allergy, Unknown, 02/24/14) SULFAMETHOXAZOLE (Unverified Allergy, Unknown, 02/24/14) TRIMETHOPRIM (Unverified Allergy, Unknown, 02/24/14) Subjective he pulled his NGT again Objective Last 24 Hour Vital Signs Date Time Temp Pulse Resp B/P (MAP) Pulse Ox O2 Delivery O2 Flow Rate FiO2 12/19/18 07:07 69 23 99 Mechanical Ventilator 35 12/19/18 07:05 70 23 30 35 12/19/18 05:03 68 23 30 35 12/19/18 04:00 30 12/19/18 04:00 97.5 68 23 146/76 (99) 99 12/19/18 04:00 Mechanical Ventilator 12/19/18 03:56 68 12/19/18 03:05 68 22 30 35 12/19/18 01:18 67 23 30 35 12/19/18 00:00 97.6 68 22 150/64 (92) 100 12/19/18 00:00 Mechanical Ventilator 12/18/18 23:33 67 12/18/18 22:49 70 23 30 35 12/18/18 21:25 72 143/67 12/18/18 21:18 73 22 30 35 12/18/18 20:00 Mechanical Ventilator 12/18/18 20:00 97.6 72 24 143/67 (92) 99 12/18/18 20:00 30 12/18/18 19:36 72 16 100 Mechanical Ventilator 30 12/18/18 19:32 73 12/18/18 19:28 71 25 100 Mechanical Ventilator 30 12/18/18 19:24 71 25 30 35 12/18/18 17:09 69 23 35 12/18/18 16:00 35 12/18/18 16:00 Mechanical Ventilator 12/18/18 16:00 97 12/18/18 16:00 97.1 85 20 122/63 (82) 100 12/18/18 15:14 69 20 100 Mechanical Ventilator 35 12/18/18 15:04 70 24 100 Mechanical Ventilator 35 12/18/18 15:04 71 24 35 12/18/18 14:46 72 17 100 12/18/18 14:30 99.0 71 18 102/37 100 Mechanical Ventilator 100 12/18/18 14:15 72 17 110/37 100 Mechanical Ventilator 100 12/18/18 14:00 72 18 106/38 100 Mechanical Ventilator 100 12/18/18 13:52 83 16 10 12/18/18 13:45 71 17 119/37 100 Mechanical Ventilator 100 12/18/18 13:40 73 16 133/41 100 Mechanical Ventilator 100 12/18/18 13:35 99.2 83 16 140/37 100 Mechanical Ventilator 100 83 12/18/18 12:00 97.7 73 20 112/50 (70) 100 72 62 12/18/18 12:00 35 12/18/18 12:00 Mechanical Ventilator 12/18/18 12:00 73 12/18/18 11:06 75 22 100 Mechanical Ventilator 35 12/18/18 10:56 71 25 100 Mechanical Ventilator 35 12/18/18 10:49 71 25 35 12/18/18 09:25 69 28 35 12/18/18 08:00 Mechanical Ventilator 12/18/18 08:00 97.9 71 20 148/80 (102) 100 70 62 12/18/18 08:00 69 12/18/18 08:00 35 Intake and Output 12/18/18 12/19/18 19:00 07:00 Intake Total 386.904 ml 1065.59436 ml Balance 386.904 ml 1065.67115 ml Free Water 125 ml 160 ml IV Total 36.904 ml 410.48501 ml Tube Feeding 225 ml 495 ml Laboratory Tests 12/19/18 04:15: Activated Partial Thromboplast Time 82H Height (Feet): 5 Height (Inches): 4.00 Weight (Pounds): 226 General Appearance: no apparent distress EENT: normal ENT inspection Neck: supple Cardiovascular: normal rate Respiratory/Chest: decreased breath sounds Abdomen: normal bowel sounds, non tender, soft Extremities: non-tender Jorge Escalera MD December 19, 2018 07:35
[2018-12-19] MEDS: Carvedilol 6.25mg Tab PEG SCH ×2 (09:00→21:31)
[2018-12-19] MEDS: Bacitracin Oint UD TOPIC SCH ×2 (09:16→21:32)
[2018-12-19] MEDS: Aspirin Baby 81mg GT SCH (09:18)
--- NOTE | 2018-12-19 10:36 | 48 Hour Post Anesthesia Eval ---
Post Anesthesia Evaluation Procedure: RIGHT arm fistulogram, balloon angioplasty Date of Evaluation: December 19, 2018 Time of Evaluation: 10:36 Blood Pressure Systolic: 99 0: 60 Pulse Rate: 70 O2 Sat by Pulse Oximetry: 99 Airway: other Nausea: No Vomiting: No Hydration Status: adequate Cardiopulmonary Status: stable Mental Status/LOC: patient returned to baseline Post-Anesthesia Complications: none Follow-up care needed: N/A Julia Bearden CRNA December 19, 2018 10:36
[2018-12-19 11:38] LABS: ALANINE AMINOTRANSFERASE 9 U/L (12-78); ALBUMIN 1.8 G/DL (3.4-5.0); ALBUMIN/GLOBULIN RATIO 0.4 (1.0-2.7); ALKALINE PHOSPHATASE 126 U/L (46-116); ANION GAP 9 mmol/L (5-15); ASPARTATE AMINO TRANSFERASE 15 U/L (15-37); BILIRUBIN,TOTAL 0.2 MG/DL (0.2-1.0); BLOOD UREA NITROGEN 69 mg/dL (7-18); CALCIUM 8.4 MG/DL (8.5-10.1); CARBON DIOXIDE 28 MMOL/L (21-32); CHLORIDE 91 MMOL/L (98-107); CREATININE 7.1 MG/DL (0.55-1.30); PHOSPHORUS 5.6 MG/DL (2.5-4.9); POTASSIUM 4.6 MMOL/L (3.5-5.1); SODIUM 128 MMOL/L (136-145)
[2018-12-19 11:44] LABS: % IRON SATURATION 24 % (15-50); IRON 36 ug/dL (50-175); TOTAL IRON BINDING CAPACITY 151 ug/dL (250-450)
[2018-12-19 11:47] LABS: FERRITIN 633 NG/ML (8-388)
[2018-12-19] MEDS: Heparin 25,000u/D5W 500ml 500 ML IV SCH (12:35)
--- NOTE | 2018-12-19 12:38 | Nephrology Progress Note ---
Assessment/Plan Problem List: (1) ESRD (end stage renal disease) on dialysis (2) Foot ulcer (3) CHF (congestive heart failure) Assessment: Ej Fx 20 % (4) Pacemaker (5) Acute respiratory failure Assessment: with Co2 retention (6) G-tube site cellulitis Assessment ESRD with high K and SOB on admit Foot ulcer, likely infected High Troponin likely NSTMI Pacer , Pleural effusion s/p CABGS s/p Liver transplant Plan on dialysis now BP low- restart midodrine next HD 12/21 GT site infection, topical antibiotic Neuro note appreciated placement in process vascular esteban regarding heel ulcer per Dr Mcgill pain med change to dilaudid GT Now has tracheostomy and PEG Adjust BP meds add nitro paste TID Antibiotics by ID per cardio and ID Podiatry and Vascular surgical fu ? DC planning? PRIMARY MD CHANGED TO DR [facility] Subjective ROS Limited/Unobtainable: No Constitutional: Reports: malaise Objective Objective Last 24 Hour Vital Signs Date Time Temp Pulse Resp B/P (MAP) Pulse Ox O2 Delivery O2 Flow Rate FiO2 12/19/18 12:00 119/63 12/19/18 10:42 102/71 (81) 12/19/18 10:36 70 99 12/19/18 09:30 74 21 30 35 12/19/18 08:00 77 12/19/18 08:00 97.2 70 23 90/60 (70) 98 12/19/18 08:00 30 12/19/18 08:00 Mechanical Ventilator 12/19/18 07:14 74 18 100 Mechanical Ventilator 30 12/19/18 07:07 69 23 99 Mechanical Ventilator 35 12/19/18 07:05 70 23 30 35 12/19/18 05:03 68 23 30 35 12/19/18 04:00 30 12/19/18 04:00 97.5 68 23 146/76 (99) 99 12/19/18 04:00 Mechanical Ventilator 12/19/18 03:56 68 12/19/18 03:05 68 22 30 35 12/19/18 01:18 67 23 30 35 12/19/18 00:00 97.6 68 22 150/64 (92) 100 12/19/18 00:00 Mechanical Ventilator 12/18/18 23:33 67 12/18/18 22:49 70 23 30 35 12/18/18 21:25 72 143/67 12/18/18 21:18 73 22 30 35 12/18/18 20:00 Mechanical Ventilator 12/18/18 20:00 97.6 72 24 143/67 (92) 99 12/18/18 20:00 30 12/18/18 19:36 72 16 100 Mechanical Ventilator 30 12/18/18 19:32 73 12/18/18 19:28 71 25 100 Mechanical Ventilator 30 12/18/18 19:24 71 25 30 35 12/18/18 17:09 69 23 35 12/18/18 16:00 35 12/18/18 16:00 Mechanical Ventilator 12/18/18 16:00 97 12/18/18 16:00 97.1 85 20 122/63 (82) 100 12/18/18 15:14 69 20 100 Mechanical Ventilator 35 12/18/18 15:04 70 24 100 Mechanical Ventilator 35 12/18/18 15:04 71 24 35 12/18/18 14:46 72 17 100 12/18/18 14:30 99.0 71 18 102/37 100 Mechanical Ventilator 100 12/18/18 14:15 72 17 110/37 100 Mechanical Ventilator 100 12/18/18 14:00 72 18 106/38 100 Mechanical Ventilator 100 12/18/18 13:52 83 16 10 12/18/18 13:45 71 17 119/37 100 Mechanical Ventilator 100 12/18/18 13:40 73 16 133/41 100 Mechanical Ventilator 100 12/18/18 13:35 99.2 83 16 140/37 100 Mechanical Ventilator 100 83 Intake and Output 12/18/18 12/19/18 19:00 07:00 Intake Total 386.904 ml 1110.71335 ml Balance 386.904 ml 1110.04547 ml Free Water 125 ml 160 ml IV Total 36.904 ml 410.20657 ml Tube Feeding 225 ml 540 ml Laboratory Tests 12/19/18 04:15: Activated Partial Thromboplast Time 82H 12/19/18 09:30: Sodium Level 128L, Potassium Level 4.6, Chloride Level 91L, Carbon Dioxide Level 28, Anion Gap 9, Blood Urea Nitrogen 69H, Creatinine 7.1H, Estimat Glomerular Filtration Rate 7.8, Glucose Level 215H, Calcium Level 8.4L, Phosphorus Level 5.6H, Iron Level 36L, Total Iron Binding Capacity 151L, Percent Iron Saturation 24, Unsaturated Iron Binding 115, Ferritin 633H, Total Bilirubin 0.2, Aspartate Amino Transf (AST/SGOT) 15, Alanine Aminotransferase ( ALT/SGPT) 9L, Alkaline Phosphatase 126H, Total Protein 6.3L, Albumin 1.8L, Globulin 4.5, Albumin/Globulin Ratio 0.4L Height (Feet): 5 Height (Inches): 4.00 Weight (Pounds): 240 General Appearance: no apparent distress Objective no other change Nakul Stevens MD December 19, 2018 12:38
--- NOTE | 2018-12-19 13:48 | Neurology Progress Note ---
Interim History Interim History Interim History Mr. Restrepo feels unwell. He is subdued today. The right upper extremity is less painful. However the right lower extremity is still very painful. He was unable to sleep well last night. He is breathing well. He feels generally weaker. The mind has not been completely clear. He has not walked yet. The right upper extremity is still swollen and painful. He denies any new neurologic symptoms. Review of Systems Neuro Review of Systems Benign. Objective Physical Exam Last Vital Signs Date Time Temp Pulse Resp B/P (MAP) Pulse Ox O2 Delivery O2 Flow Rate FiO2 12/19/18 13:15 71 20 30 35 12/19/18 12:38 97.0 119/63 (81) 98 12/19/18 11:00 Mechanical Ventilator 12/16/18 13:50 12.0 Laboratory Tests Test 12/19/18 04:15 12/19/18 09:30 Activated Partial Thromboplast Time 82 SEC (23-33) H Sodium Level 128 MMOL/L (136-145) L Potassium Level 4.6 MMOL/L (3.5-5.1) Chloride Level 91 MMOL/L (98-107) L Carbon Dioxide Level 28 MMOL/L (21-32) Anion Gap 9 mmol/L (5-15) Blood Urea Nitrogen 69 mg/dL (7-18) H Creatinine 7.1 MG/DL (0.55-1.30) H Estimat Glomerular Filtration Rate 7.8 mL/min (>60) Glucose Level 215 MG/DL (74-106) H Calcium Level 8.4 MG/DL (8.5-10.1) L Phosphorus Level 5.6 MG/DL (2.5-4.9) H Iron Level 36 ug/dL (50-175) L Total Iron Binding Capacity 151 ug/dL (250-450) L Percent Iron Saturation 24 % (15-50) Unsaturated Iron Binding 115 ug/dL (112-346) Ferritin 633 NG/ML (8-388) H Total Bilirubin 0.2 MG/DL (0.2-1.0) Aspartate Amino Transf (AST/SGOT) 15 U/L (15-37) Alanine Aminotransferase (ALT/SGPT) 9 U/L (12-78) L Alkaline Phosphatase 126 U/L (46-116) H Total Protein 6.3 G/DL (6.4-8.2) L Albumin 1.8 G/DL (3.4-5.0) L Globulin 4.5 g/dL Albumin/Globulin Ratio 0.4 (1.0-2.7) L Neurologic Exam Objective PHYSICAL EXAMINATION: GENERAL: He is a well-developed and well-nourished, pleasant gentleman, lying in bed connected to a ventilator via a tracheostomy. HEAD: Normocephalic and atraumatic. EENT: Examination benign. NECK: No neck rigidity was observed. He did have a tracheostomy. NEUROLOGICAL EXAMINATION: MENTAL STATUS EXAMINATION: He was awake and alert. He was fully oriented. He was able to remember presidents Trump and Obama. He was unable to cooperate for further mental status testing. SPEECH: Could not be tested, but he was able to mouth words relatively well. LANGUAGE: He was able to comprehend and express himself relatively well. CRANIAL NERVES EXAMINATION: II: The visual mckeon were intact to confrontation testing. III, IV & : The external ocular movements were full and the pupils 3 mm in diameter, equal, round, regular, and reactive sluggishly to light. V: He had normal facial sensations, and the temporales, masseters, and pterygoids functioned normally. VII: He had normal facial expressions and no facial asymmetry. VIII: Hearing was decreased bilaterally with worse hearing on the left side compared to the right. IX: The palate moved symmetrically on phonation. X: Could not be tested. XI: The sternocleidomastoids and trapezii functioned normally. XII: The tongue was in the midline without any fasciculations or atrophy. MOTOR SYSTEM: The tone was normal in all four extremities. Examination of muscle mass revealed generalized muscle wasting. Examination of power revealed G 5/5 power except for G 4+/5 power in the iliopsoas muscles bilaterally. Power in the right upper extremity was limited by pain. Power in the right foot was also limited by pain. SENSORY EXAMINATION: He had intact sensations to light touch. Other sensory modalities could not be tested adequately. REFLEXES: 1+ and bilaterally symmetrical at the biceps, triceps, brachioradialis , and knees, 0 at both ankles. The plantar responses were flexor bilaterally. COORDINATION: He performed well on [id number] testing. STANCE & GAIT: Were deferred. Impression/Recommendations Diagnostic Impression 1. Mr. Gregg Restrepo is a 68-year-old, right-handed, gentleman with past history of multiple medical problems including hypertension, diabetes mellitus, end-stage renal disease for which he is hemodialysis dependent, prior episodes of sepsis, and prior episodes of encephalopathy, who was admitted to [facility] on October 31, 2018. Following that, he has had a stormy hospital course including pneumonia and sepsis, right foot infection, respiratory failure for which he has needed tracheostomy and in addition he has exhibited an alteration in his mental state with some waxing and waning of his mental state. 2. He feels feels unwell. He is subdued today. The right upper extremity is less painful. However the right lower extremity is still very painful. He was unable to sleep well last night. He is breathing well. He feels generally weaker. The mind has not been completely clear. He has not walked yet. The right upper extremity is still swollen and painful. He denies any new neurologic symptoms. 3. On neurological examination, at this time, he is fully oriented, has mild problems with recent and remote memory, normal visuospatial function, minimally impaired higher cognitive function. He is able to comprehend and express himself well. He does have mild G 4+/5 weakness in the iliopsoas muscles bilaterally. Power in the right upper extremity was limited by pain. Power in the right foot was also limited by pain. He had globally diminished deep tendon reflexes with loss of ankle jerks, but no definite focal or lateralizing neurological findings. 4. His latest laboratory data on my initial evaluation revealed that he was anemic with a hemoglobin of 10.8 G. His last blood gas performed on 11/14/2018 revealed that he had a pCO2 elevated at 56.4 with a normal pO2 of 88.3 and normal pH of 7.37. His latest chemistry panel revealed that he was mildly hyponatremic with a sodium of 130, and had a chloride of 90. The BUN was elevated at 75, creatinine elevated at 7.4, glucose elevated at 156, Hemoglobin A1c elevated at 6.9%, Alkaline phosphatase elevated at 131, and ProBNP greater than 35,000. His last B12 level on 11/07/2018 was 723. His last folate on was 18.6. His last TSH on 12/06/2018 was 4.82, which is minimally elevated. 5. The CT scan of the brain performed on 11/10/2018 was benign for acute intracranial pathology. 6. The EEG done on 12/08/18 revealed left temporal dysfunction. 7. The patient's history and neurological examination are most consistent with mild multifactorial encephalopathy, which apparently waxes and wanes, but no definite focal neurological dysfunction. His encephalopathy is worse today. 8. He tells me that he had a brain bleed many years ago. I did review his imaging done at [facility] a few years ago and he had closed head injuries with subarachnoid and subdural blood in the past. Recommendations 1. Continue present management. 2. Continue to correct the patient's toxic metabolic imbalances. 3. Mobilize with PT/OT. 4. Consider getting ENT evaluation for worsening hearing. 5. Observe closely. Pantera Cool M.D., M.S.P.H. Pantera Cool MD December 19, 2018 13:48
--- NOTE | 2018-12-19 14:07 | General Progress Note ---
Assessment/Plan Assessment/Plan: #Right heel diabetic foot ulcer without osteomyelitis #PAD -seen by Podiatry and ID -s/p Vanco x 2 weeks during HD -s/p selective RLE angio with SFA/pop stenting -continue heparin drip #Acute Resp hypercapnic failure s/p trach #Angioedema -continue trach care -Pulm following #End-stage renal disease, on dialysis -HD per Nephrology #Coronary artery disease -continue ASA, Coreg, atorva -cardiology following #Type 2 DM -ISS #Acute metabolic encephalopathy -continue supportive care -Neurology following #history of chronic HCV infection #history of liver transplant -continue Prograf -GI following #S/p PEG with PEG site cellulitis -s/p antibiotics per ID and GI -continue local wound care I spent 47 minutes on this patient's case, and 24 minutes was dedicated to counseling and/or care coordination. I spent an additional 36 minutes on review of medical records including prior outside hospital records, consult notes, progress notes, procedures, imaging, labs, hemodynamics, and other clinical documentation. Subjective Date patient seen: December 19, 2018 Time patient seen: 14:05 ROS Limited/Unobtainable: Yes Allergies: Coded Allergies: CEPHALEXIN (Unverified Allergy, Unknown, 02/24/14) SULFAMETHOXAZOLE (Unverified Allergy, Unknown, 02/24/14) TRIMETHOPRIM (Unverified Allergy, Unknown, 02/24/14) Subjective Pt trached and vented. Unable to voice answers. Denied any chest pain, dyspnea. Does c/o pain at the prior surgical site. Objective Last 24 Hour Vital Signs Date Time Temp Pulse Resp B/P (MAP) Pulse Ox O2 Delivery O2 Flow Rate FiO2 12/19/18 13:15 71 20 30 35 12/19/18 12:38 97.0 70 23 119/63 (81) 98 12/19/18 12:00 119/63 12/19/18 11:00 75 21 99 Mechanical Ventilator 30 12/19/18 11:00 75 21 30 35 12/19/18 11:00 75 21 99 Mechanical Ventilator 35 12/19/18 10:42 102/71 (81) 12/19/18 10:36 70 99 12/19/18 09:30 74 21 30 35 12/19/18 08:00 77 12/19/18 08:00 97.2 70 23 90/60 (70) 98 12/19/18 08:00 30 12/19/18 08:00 Mechanical Ventilator 12/19/18 07:14 74 18 100 Mechanical Ventilator 30 12/19/18 07:07 69 23 99 Mechanical Ventilator 35 12/19/18 07:05 70 23 30 35 12/19/18 05:03 68 23 30 35 12/19/18 04:00 30 12/19/18 04:00 97.5 68 23 146/76 (99) 99 12/19/18 04:00 Mechanical Ventilator 12/19/18 03:56 68 12/19/18 03:05 68 22 30 35 12/19/18 01:18 67 23 30 35 12/19/18 00:00 97.6 68 22 150/64 (92) 100 12/19/18 00:00 Mechanical Ventilator 12/18/18 23:33 67 12/18/18 22:49 70 23 30 35 12/18/18 21:25 72 143/67 12/18/18 21:18 73 22 30 35 12/18/18 20:00 Mechanical Ventilator 12/18/18 20:00 97.6 72 24 143/67 (92) 99 12/18/18 20:00 30 12/18/18 19:36 72 16 100 Mechanical Ventilator 30 12/18/18 19:32 73 12/18/18 19:28 71 25 100 Mechanical Ventilator 30 12/18/18 19:24 71 25 30 35 12/18/18 17:09 69 23 35 12/18/18 16:00 35 12/18/18 16:00 Mechanical Ventilator 12/18/18 16:00 97 12/18/18 16:00 97.1 85 20 122/63 (82) 100 12/18/18 15:14 69 20 100 Mechanical Ventilator 35 12/18/18 15:04 70 24 100 Mechanical Ventilator 35 12/18/18 15:04 71 24 35 12/18/18 14:46 72 17 100 12/18/18 14:30 99.0 71 18 102/37 100 Mechanical Ventilator 100 12/18/18 14:15 72 17 110/37 100 Mechanical Ventilator 100 Intake and Output 12/18/18 12/19/18 19:00 07:00 Intake Total 386.904 ml 1110.68476 ml Balance 386.904 ml 1110.15779 ml Free Water 125 ml 160 ml IV Total 36.904 ml 410.76013 ml Tube Feeding 225 ml 540 ml Laboratory Tests 12/19/18 04:15: Activated Partial Thromboplast Time 82H 12/19/18 09:30: Sodium Level 128L, Potassium Level 4.6, Chloride Level 91L, Carbon Dioxide Level 28, Anion Gap 9, Blood Urea Nitrogen 69H, Creatinine 7.1H, Estimat Glomerular Filtration Rate 7.8, Glucose Level 215H, Calcium Level 8.4L, Phosphorus Level 5.6H, Iron Level 36L, Total Iron Binding Capacity 151L, Percent Iron Saturation 24, Unsaturated Iron Binding 115, Ferritin 633H, Total Bilirubin 0.2, Aspartate Amino Transf (AST/SGOT) 15, Alanine Aminotransferase ( ALT/SGPT) 9L, Alkaline Phosphatase 126H, Total Protein 6.3L, Albumin 1.8L, Globulin 4.5, Albumin/Globulin Ratio 0.4L Height (Feet): 5 Height (Inches): 4.00 Weight (Pounds): 240 Objective General: alert, cooperative, no distress, appears stated age Head: normocephalic, without obvious abnormality, atraumatic Eyes: conjunctivae/corneas clear. PERRL, EOM's intact Neck: +trached Lungs: clear to auscultation bilaterally Heart: regular rate and rhythm, S1, S2 normal, no murmur, click, rub or gallop Abdomen: soft, non-tender, non-distended, bowel sounds normal; no masses or organomegaly Extremities: extremities normal, atraumatic, no cyanosis or edema Pulses: 2+ and symmetric Skin: skin color, texture, turgor normal; no rashes or lesions Neurologic: grossly normal, no focal deficits Reimngton Samaniego MD December 19, 2018 14:07
[2018-12-19] MEDS: Midodrine 10mg tab GT SCH ×2 (14:17→18:32)
--- NOTE | 2018-12-19 15:22 | Infectious Diseases Prog Note ---
Assessment/Plan Problems: (1) G-tube site cellulitis Assessment & Plan: culture from the G tube site grew pseudomonas , S/P ciprofloxacin for 7 days , continue local care and antibiotics as per GI (2) Thrush, oral Assessment & Plan: continue local nystatin as needed , S/P micafungin for three weeks empirically (3) HCV antibody positive Assessment & Plan: no evidence of active infection, with undetectable viral load , suspect due to previous infection , cleared, S/P liver transplant . (4) Foot ulcer Assessment & Plan: in diabetic patient , with MRSA , S/P vancomycin treatment with HD for two weeks , had vascular eval with revascularization, S/P ulcer resection by configuration release manager today . bone scan ruled out osteomyelitis of the heel . continue local wound care as per configuration release manager . wound looks clean (5) DM (diabetes mellitus) Assessment & Plan: recommend tight glycemic control to keep blood glucose between 100-140 (6) CHF (congestive heart failure) Assessment & Plan: on HD , renal is following, monitor daily weight (7) Severe tongue swelling Assessment & Plan: improving , s/p tracheostomy to protect his airway since respiratory status worsened . now improving, pulmonary is following (8) Pleural effusion Assessment & Plan: recurrent on the right, with lung collapse , S/P thoracentesis X2 with removal of 1.5 cc of clear fluids. PREVIOUS culture were negative with negative cytology Subjective Constitutional: Reports: no symptoms HEENT: Reports: no symptoms Respiratory: Reports: no symptoms Breasts: Reports: no symptoms Cardiovascular: Reports: no symptoms Gastrointestinal/Abdominal: Reports: no symptoms Genitourinary: Reports: no symptoms Neurologic: Reports: no symptoms Psychiatric: Reports: no symptoms Skin: Reports: no symptoms Endocrine: Reports: no symptoms Hematologic: Reports: no symptoms Musculoskeletal: Reports: no symptoms Allergies: Coded Allergies: CEPHALEXIN (Unverified Allergy, Unknown, 02/24/14) SULFAMETHOXAZOLE (Unverified Allergy, Unknown, 02/24/14) TRIMETHOPRIM (Unverified Allergy, Unknown, 02/24/14) Subjective he was comfortable, lying in bed, no tongue swelling , awake and responsive, no fever or chills, no significant secretions , no SOB . has no thrush on his tongue Objective Vital Signs Last 24 Hour Vital Signs Date Time Temp Pulse Resp B/P (MAP) Pulse Ox O2 Delivery O2 Flow Rate FiO2 12/19/18 15:11 73 24 96 Mechanical Ventilator 35 12/19/18 15:10 73 24 30 35 12/19/18 13:15 71 20 30 35 12/19/18 12:38 97.0 70 23 119/63 (81) 98 12/19/18 12:00 Mechanical Ventilator 12/19/18 12:00 119/63 12/19/18 12:00 71 12/19/18 12:00 30 12/19/18 11:00 75 21 99 Mechanical Ventilator 30 12/19/18 11:00 75 21 30 35 12/19/18 11:00 75 21 99 Mechanical Ventilator 35 12/19/18 10:42 102/71 (81) 12/19/18 10:36 70 99 12/19/18 09:30 74 21 30 35 12/19/18 08:00 77 12/19/18 08:00 97.2 70 23 90/60 (70) 98 12/19/18 08:00 30 12/19/18 08:00 Mechanical Ventilator 12/19/18 07:14 74 18 100 Mechanical Ventilator 30 12/19/18 07:07 69 23 99 Mechanical Ventilator 35 12/19/18 07:05 70 23 30 35 12/19/18 05:03 68 23 30 35 12/19/18 04:00 30 12/19/18 04:00 97.5 68 23 146/76 (99) 99 12/19/18 04:00 Mechanical Ventilator 12/19/18 03:56 68 12/19/18 03:05 68 22 30 35 12/19/18 01:18 67 23 30 35 12/19/18 00:00 97.6 68 22 150/64 (92) 100 12/19/18 00:00 Mechanical Ventilator 12/18/18 23:33 67 12/18/18 22:49 70 23 30 35 12/18/18 21:25 72 143/67 12/18/18 21:18 73 22 30 35 12/18/18 20:00 Mechanical Ventilator 12/18/18 20:00 97.6 72 24 143/67 (92) 99 12/18/18 20:00 30 12/18/18 19:36 72 16 100 Mechanical Ventilator 30 12/18/18 19:32 73 12/18/18 19:28 71 25 100 Mechanical Ventilator 30 12/18/18 19:24 71 25 30 35 12/18/18 17:09 69 23 35 12/18/18 16:00 35 12/18/18 16:00 Mechanical Ventilator 12/18/18 16:00 97 12/18/18 16:00 97.1 85 20 122/63 (82) 100 Height (Feet): 5 Height (Inches): 4.00 Weight (Pounds): 240 General Appearance: WD/WN, no acute distress HEENT: normocephalic, atraumatic, anicteric, mucous membranes moist, PERRL, EOMI, pharynx normal, supple, no JVD Respiratory/Chest: chest wall non-tender, no respiratory distress, no accessory muscle use, decreased breath sounds, crackles/rales Cardiovascular: normal peripheral pulses, normal rate, regular rhythm, no gallop/murmur, no JVD Abdomen: normal bowel sounds, soft, non tender, no organomegaly, non distended , no mass, no scars Genitourinary: normal external genitalia Extremities: no cyanosis, no clubbing Skin: no rash, no lesions, no ulcers 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: 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 normal, alert, responsive Lymphatic: no neck adenopathy, no groin adenopathy Musculoskeletal: normal muscle bulk, no effusion Laboratory Tests Test 12/19/18 04:15 12/19/18 09:30 Activated Partial Thromboplast Time 82 SEC (23-33) H Sodium Level 128 MMOL/L (136-145) L Potassium Level 4.6 MMOL/L (3.5-5.1) Chloride Level 91 MMOL/L (98-107) L Carbon Dioxide Level 28 MMOL/L (21-32) Anion Gap 9 mmol/L (5-15) Blood Urea Nitrogen 69 mg/dL (7-18) H Creatinine 7.1 MG/DL (0.55-1.30) H Estimat Glomerular Filtration Rate 7.8 mL/min (>60) Glucose Level 215 MG/DL (74-106) H Calcium Level 8.4 MG/DL (8.5-10.1) L Phosphorus Level 5.6 MG/DL (2.5-4.9) H Iron Level 36 ug/dL (50-175) L Total Iron Binding Capacity 151 ug/dL (250-450) L Percent Iron Saturation 24 % (15-50) Unsaturated Iron Binding 115 ug/dL (112-346) Ferritin 633 NG/ML (8-388) H Total Bilirubin 0.2 MG/DL (0.2-1.0) Aspartate Amino Transf (AST/SGOT) 15 U/L (15-37) Alanine Aminotransferase (ALT/SGPT) 9 U/L (12-78) L Alkaline Phosphatase 126 U/L (46-116) H Total Protein 6.3 G/DL (6.4-8.2) L Albumin 1.8 G/DL (3.4-5.0) L Globulin 4.5 g/dL Albumin/Globulin Ratio 0.4 (1.0-2.7) L Current Medications Medications (Trade) Dose Ordered Sig/Aleks Route PRN Reason Start Time Stop Time Status Last Admin Dose Admin Albuterol/ Ipratropium (Albuterol/ Ipratropium) 3 ml QIDRT HHN 12/17/18 07:00 12/20/18 14:44 12/19/18 15:10 Aspirin (ASA) 162 mg DAILY GT 12/08/18 09:00 12/20/18 08:59 12/19/18 09:18 Atorvastatin Calcium (Lipitor) 10 mg BEDTIME NG 12/01/18 21:00 12/21/18 20:59 12/18/18 21:25 Bacitracin (Bacitracin) 1 applic EVERY 12 HOURS TOPIC 12/11/18 21:00 01/06/19 17:59 12/19/18 09:16 Carvedilol (Coreg) 6.25 mg EVERY 12 HOURS PEG 12/06/18 21:00 01/03/19 20:59 12/18/18 21:25 Clotrimazole (Lotrimin) 1 applic BID TOPIC 12/07/18 18:00 01/06/19 17:59 12/19/18 09:16 Collagenase (Santyl) 1 applic DAILY TOPIC 12/19/18 09:00 01/18/19 08:59 12/19/18 09:15 Dextrose (Dextrose 50%) 25 ml Q30M PRN IV Hypoglycemia 12/01/18 19:30 12/31/18 19:29 Dextrose (Dextrose 50%) 50 ml Q30M PRN IV Hypoglycemia 12/01/18 19:30 12/31/18 19:29 Docusate Sodium (Colace) 100 mg EVERY 8 HOURS PRN GT constipation 11/24/18 18:51 12/20/18 18:50 Escitalopram Oxalate (Lexapro) 10 mg DAILY GT 12/18/18 09:00 01/17/19 08:59 12/19/18 09:16 Heparin Sodium/ Dextrose 500 ml @ 36.904 mls/ hr ADJUST PER PROTOCOL IV 12/18/18 07:55 01/16/19 17:29 12/19/18 12:35 Hydralazine HCl (Apresoline) 10 mg Q6H PRN GT For High Blood Pressure 12/03/18 16:45 01/02/19 16:44 12/07/18 04:47 Hydromorphone HCl (Dilaudid) 1 mg Q4H PRN GT For Pain 12/14/18 15:30 12/21/18 15:29 12/19/18 14:17 Insulin Aspart (NovoLOG) EVERY 6 HOURS SUBQ 12/02/18 00:00 12/31/18 20:59 12/19/18 12:38 Lactulose (Cephulac) 20 gm THREE TIMES A DAY PRN GT Constipation 11/24/18 18:51 12/23/18 18:50 Lansoprazole (Prevacid) 30 mg BID GT 11/20/18 09:00 12/20/18 08:59 12/19/18 09:18 Midodrine (Pro-Amatine) 10 mg THREE TIMES A DAY GT 12/19/18 13:00 01/18/19 12:59 12/19/18 14:17 Mirtazapine (Remeron) 7.5 mg BEDTIME GT 12/14/18 21:00 01/13/19 20:59 12/18/18 21:25 Nicotine (Nicoderm) 1 patch Q24H TDERMAL 12/01/18 22:15 12/21/18 22:14 12/18/18 21:26 Nitroglycerin (Nitro-Bid) 1 inch TID@0600,1200,1800 TOPIC 12/07/18 12:00 01/06/19 11:59 12/17/18 18:08 Sevelamer Carbonate (Renvela) 800 mg Q8HR GT 11/20/18 14:00 12/20/18 13:59 12/19/18 14:16 Tacrolimus (Prograf) 2 mg MoWeFr@0000,1200 ORAL 12/07/18 00:00 12/21/18 00:00 12/18/18 15:02 Tacrolimus (Prograf) 2 mg SuTuThSa@0900,2100 ORAL 12/17/18 21:00 01/16/19 20:59 12/19/18 09:15 Francois Landis M.D. December 19, 2018 15:22
--- NOTE | 2018-12-19 16:01 | Cardiac Electrophysiology PN ---
Assessment/Plan Assessment/Plan 1. Troponin leak due to renal failure. No CP or SOB 2. S/P CABG. On Coreg 6.25 mg bid, aspirin 162 and Lipitor 3. NSVT in setting of old FL and CABG. EF 55%. No Syncope 4. Congestive heart failure. On hemodialysis 5. S/P R. [employer] dual chamber pacemaker with Nl Fx. 6. End-stage renal disease, on hemodialysis per Dr. Stevens Fistulogram today by Dr Salmeron . 7. Multilevel AOD LE's with non-healing Right foot ulcer. Abdominal Angiogram per Dr Salmeron yesterday Antibiotic per Dr. Landis. FU by Dr. Huizar 8. History of liver transplant on Prograf 9. Respiratory failure, S/P tracheostomy. 10. Pleural effusion. FU Dr. Mendoza 11. Dysphagia, S/P PEG DW RN Subjective Subjective On the vent via tracheostomy. S/P abdominal aortogram for leg pain and fistulogram by Dr. Salmeron. Had HD Objective Last 24 Hour Vital Signs Date Time Temp Pulse Resp B/P (MAP) Pulse Ox O2 Delivery O2 Flow Rate FiO2 12/19/18 15:21 73 20 98 Mechanical Ventilator 30 12/19/18 15:11 73 24 96 Mechanical Ventilator 35 12/19/18 15:10 73 24 30 35 12/19/18 13:15 71 20 30 35 12/19/18 12:38 97.0 70 23 119/63 (81) 98 12/19/18 12:00 Mechanical Ventilator 12/19/18 12:00 119/63 12/19/18 12:00 71 12/19/18 12:00 30 12/19/18 11:00 75 21 99 Mechanical Ventilator 30 12/19/18 11:00 75 21 30 35 12/19/18 11:00 75 21 99 Mechanical Ventilator 35 12/19/18 10:42 102/71 (81) 12/19/18 10:36 70 99 12/19/18 09:30 74 21 30 35 12/19/18 08:00 77 12/19/18 08:00 97.2 70 23 90/60 (70) 98 12/19/18 08:00 30 12/19/18 08:00 Mechanical Ventilator 12/19/18 07:14 74 18 100 Mechanical Ventilator 30 12/19/18 07:07 69 23 99 Mechanical Ventilator 35 12/19/18 07:05 70 23 30 35 12/19/18 05:03 68 23 30 35 12/19/18 04:00 30 12/19/18 04:00 97.5 68 23 146/76 (99) 99 12/19/18 04:00 Mechanical Ventilator 12/19/18 03:56 68 12/19/18 03:05 68 22 30 35 12/19/18 01:18 67 23 30 35 12/19/18 00:00 97.6 68 22 150/64 (92) 100 12/19/18 00:00 Mechanical Ventilator 12/18/18 23:33 67 12/18/18 22:49 70 23 30 35 12/18/18 21:25 72 143/67 12/18/18 21:18 73 22 30 35 12/18/18 20:00 Mechanical Ventilator 12/18/18 20:00 97.6 72 24 143/67 (92) 99 12/18/18 20:00 30 12/18/18 19:36 72 16 100 Mechanical Ventilator 30 12/18/18 19:32 73 12/18/18 19:28 71 25 100 Mechanical Ventilator 30 12/18/18 19:24 71 25 30 35 12/18/18 17:09 69 23 35 Intake and Output 12/18/18 12/19/18 19:00 07:00 Intake Total 386.904 ml 1110.60579 ml Balance 386.904 ml 1110.30067 ml Free Water 125 ml 160 ml IV Total 36.904 ml 410.83079 ml Tube Feeding 225 ml 540 ml Laboratory Tests Test 12/19/18 04:15 12/19/18 09:30 Activated Partial Thromboplast Time 82 SEC (23-33) H Sodium Level 128 MMOL/L (136-145) L Potassium Level 4.6 MMOL/L (3.5-5.1) Chloride Level 91 MMOL/L (98-107) L Carbon Dioxide Level 28 MMOL/L (21-32) Anion Gap 9 mmol/L (5-15) Blood Urea Nitrogen 69 mg/dL (7-18) H Creatinine 7.1 MG/DL (0.55-1.30) H Estimat Glomerular Filtration Rate 7.8 mL/min (>60) Glucose Level 215 MG/DL (74-106) H Calcium Level 8.4 MG/DL (8.5-10.1) L Phosphorus Level 5.6 MG/DL (2.5-4.9) H Iron Level 36 ug/dL (50-175) L Total Iron Binding Capacity 151 ug/dL (250-450) L Percent Iron Saturation 24 % (15-50) Unsaturated Iron Binding 115 ug/dL (112-346) Ferritin 633 NG/ML (8-388) H Total Bilirubin 0.2 MG/DL (0.2-1.0) Aspartate Amino Transf (AST/SGOT) 15 U/L (15-37) Alanine Aminotransferase (ALT/SGPT) 9 U/L (12-78) L Alkaline Phosphatase 126 U/L (46-116) H Total Protein 6.3 G/DL (6.4-8.2) L Albumin 1.8 G/DL (3.4-5.0) L Globulin 4.5 g/dL Albumin/Globulin Ratio 0.4 (1.0-2.7) L Objective HEAD AND NECK: No JVD. Tracheostomy intact LUNGS: Clear CARDIOVASCULAR: Irregular S1 and S2 with no gallop. Sternotomy is intact Pacemaker in the right subclavian ABDOMEN: Soft.PEG in place EXTREMITIES: 1+ pitting edema Shivam Sharpe MD December 19, 2018 16:01
--- NOTE | 2018-12-19 20:56 | Pulmonology Progress Note ---
Assessment/Plan Assessment/Plan 1. Resp failure, hypercapneic 2. End-stage renal disease, on dialysis, status post multiple upper extremity vascular procedures. 3. Coronary artery bypass surgery. 4. Diabetes. 5. Dysphonia, tongue swelling, resolved; s/p trach PLAN: had several vascular procedures weaning as tolerated, stable on the vent disc w RN abx wound care dR Lacy will see intermittently Subjective ROS Limited/Unobtainable: Yes Allergies: Coded Allergies: CEPHALEXIN (Unverified Allergy, Unknown, 02/24/14) SULFAMETHOXAZOLE (Unverified Allergy, Unknown, 02/24/14) TRIMETHOPRIM (Unverified Allergy, Unknown, 02/24/14) Subjective awake minimal secretions on vent no cp nv or bleeding not getting oob positive uop Objective Last 24 Hour Vital Signs Date Time Temp Pulse Resp B/P (MAP) Pulse Ox O2 Delivery O2 Flow Rate FiO2 12/19/18 20:00 Mechanical Ventilator 12/19/18 20:00 97.7 76 25 109/72 (84) 98 12/19/18 19:25 76 20 98 Mechanical Ventilator 30 12/19/18 19:16 76 26 30 35 12/19/18 19:15 78 25 98 Mechanical Ventilator 30 12/19/18 18:00 105/42 12/19/18 17:17 74 25 30 35 12/19/18 16:00 97.5 70 24 105/42 (63) 97 12/19/18 16:00 Mechanical Ventilator 12/19/18 16:00 30 12/19/18 16:00 73 12/19/18 15:21 73 20 98 Mechanical Ventilator 30 12/19/18 15:11 73 24 96 Mechanical Ventilator 35 12/19/18 15:10 73 24 30 35 12/19/18 13:15 71 20 30 35 12/19/18 12:38 97.0 70 23 119/63 (81) 98 12/19/18 12:00 Mechanical Ventilator 12/19/18 12:00 119/63 12/19/18 12:00 71 12/19/18 12:00 30 12/19/18 11:00 75 21 99 Mechanical Ventilator 30 12/19/18 11:00 75 21 30 35 12/19/18 11:00 75 21 99 Mechanical Ventilator 35 12/19/18 10:42 102/71 (81) 12/19/18 10:36 70 99 5/4/19 09:30 74 21 30 35 12/19/18 08:00 77 12/19/18 08:00 97.2 70 23 90/60 (70) 98 12/19/18 08:00 30 12/19/18 08:00 Mechanical Ventilator 12/19/18 07:14 74 18 100 Mechanical Ventilator 30 12/19/18 07:07 69 23 99 Mechanical Ventilator 35 12/19/18 07:05 70 23 30 35 12/19/18 05:03 68 23 30 35 12/19/18 04:00 30 12/19/18 04:00 97.5 68 23 146/76 (99) 99 12/19/18 04:00 Mechanical Ventilator 12/19/18 03:56 68 12/19/18 03:05 68 22 30 35 12/19/18 01:18 67 23 30 35 12/19/18 00:00 97.6 68 22 150/64 (92) 100 12/19/18 00:00 Mechanical Ventilator 12/18/18 23:33 67 12/18/18 22:49 70 23 30 35 12/18/18 21:25 72 143/67 12/18/18 21:18 73 22 30 35 Intake and Output 12/18/18 12/19/18 18:59 06:59 Intake Total 305 ml 1147.50178 ml Balance 305 ml 1147.22584 ml Free Water 125 ml 160 ml IV Total 447.14494 ml Tube Feeding 180 ml 540 ml General Appearance: WD/WN Respiratory/Chest: rhonchi Cardiovascular: normal rate, regular rhythm, edema Abdomen: soft, non tender, non distended Extremities: no cyanosis 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: responsive Laboratory Tests 12/19/18 04:15: Activated Partial Thromboplast Time 82H 12/19/18 09:30: Sodium Level 128L, Potassium Level 4.6, Chloride Level 91L, Carbon Dioxide Level 28, Anion Gap 9, Blood Urea Nitrogen 69H, Creatinine 7.1H, Estimat Glomerular Filtration Rate 7.8, Glucose Level 215H, Calcium Level 8.4L, Phosphorus Level 5.6H, Iron Level 36L, Total Iron Binding Capacity 151L, Percent Iron Saturation 24, Unsaturated Iron Binding 115, Ferritin 633H, Total Bilirubin 0.2, Aspartate Amino Transf (AST/SGOT) 15, Alanine Aminotransferase ( ALT/SGPT) 9L, Alkaline Phosphatase 126H, Total Protein 6.3L, Albumin 1.8L, Globulin 4.5, Albumin/Globulin Ratio 0.4L Current Medications Medications (Trade) Dose Ordered Sig/Aleks Route PRN Reason Start Time Stop Time Status Last Admin Dose Admin Albuterol/ Ipratropium (Albuterol/ Ipratropium) 3 ml QIDRT HHN 12/17/18 07:00 12/20/18 14:44 12/19/18 19:15 Aspirin (ASA) 162 mg DAILY GT 12/08/18 09:00 12/20/18 08:59 12/19/18 09:18 Atorvastatin Calcium (Lipitor) 10 mg BEDTIME NG 12/01/18 21:00 12/21/18 20:59 12/18/18 21:25 Bacitracin (Bacitracin) 1 applic EVERY 12 HOURS TOPIC 12/11/18 21:00 01/06/19 17:59 12/19/18 09:16 Carvedilol (Coreg) 6.25 mg EVERY 12 HOURS PEG 12/06/18 21:00 01/03/19 20:59 12/18/18 21:25 Clotrimazole (Lotrimin) 1 applic BID TOPIC 12/07/18 18:00 01/06/19 17:59 12/19/18 18:33 Collagenase (Santyl) 1 applic DAILY TOPIC 12/19/18 09:00 01/18/19 08:59 12/19/18 09:15 Dextrose (Dextrose 50%) 25 ml Q30M PRN IV Hypoglycemia 12/01/18 19:30 12/31/18 19:29 Dextrose (Dextrose 50%) 50 ml Q30M PRN IV Hypoglycemia 12/01/18 19:30 12/31/18 19:29 Docusate Sodium (Colace) 100 mg EVERY 8 HOURS PRN GT constipation 11/24/18 18:51 12/20/18 18:50 Escitalopram Oxalate (Lexapro) 10 mg DAILY GT 12/18/18 09:00 01/17/19 08:59 12/19/18 09:16 Heparin Sodium/ Dextrose 500 ml @ 36.904 mls/ hr ADJUST PER PROTOCOL IV 12/18/18 07:55 01/16/19 17:29 12/19/18 12:35 Hydralazine HCl (Apresoline) 10 mg Q6H PRN GT For High Blood Pressure 12/03/18 16:45 01/02/19 16:44 12/07/18 04:47 Hydromorphone HCl (Dilaudid) 1 mg Q4H PRN GT For Pain 12/14/18 15:30 12/21/18 15:29 12/19/18 18:24 Insulin Aspart (NovoLOG) EVERY 6 HOURS SUBQ 12/02/18 00:00 12/31/18 20:59 12/19/18 18:32 Lactulose (Cephulac) 20 gm THREE TIMES A DAY PRN GT Constipation 11/24/18 18:51 12/23/18 18:50 Lansoprazole (Prevacid) 30 mg BID GT 11/20/18 09:00 12/20/18 08:59 12/19/18 18:24 Midodrine (Pro-Amatine) 10 mg THREE TIMES A DAY GT 12/19/18 13:00 01/18/19 12:59 12/19/18 18:32 Mirtazapine (Remeron) 7.5 mg BEDTIME GT 12/14/18 21:00 01/13/19 20:59 12/18/18 21:25 Nicotine (Nicoderm) 1 patch Q24H TDERMAL 12/01/18 22:15 12/21/18 22:14 12/18/18 21:26 Nitroglycerin (Nitro-Bid) 1 inch TID@0600,1200,1800 TOPIC 12/07/18 12:00 01/06/19 11:59 12/17/18 18:08 Sevelamer Carbonate (Renvela) 800 mg Q8HR GT 11/20/18 14:00 12/20/18 13:59 12/19/18 14:16 Tacrolimus (Prograf) 2 mg MoWeFr@0000,1200 ORAL 12/07/18 00:00 12/21/18 00:00 12/18/18 15:02 Tacrolimus (Prograf) 2 mg SuTuThSa@0900,2100 ORAL 12/17/18 21:00 01/16/19 20:59 12/19/18 09:15 Christina Perez DO December 19, 2018 20:56
[2018-12-20] VITALS: BP 90/60
[2018-12-20] MEDS: Heparin 25,000u/D5W 500ml 500 ML IV SCH ×3 (00:35→18:49)
[2018-12-20] MEDS: HYDROmorphone 2mg tab GT PRN ×4 (03:21→18:04)
[2018-12-20 04:00] VITALS: BP 114/71
[2018-12-20 04:45] LABS: BASOPHILS % (AUTO) 1.1 % (0.0-2.0); HEMATOCRIT 27.7 % (42.0-52.0); HEMOGLOBIN 8.5 G/DL (14.2-18.0); MEAN CORPUSCULAR VOLUME 81 FL (80-99); MONOCYTES % (AUTO) 9.3 % (1.0-10.0); NEUTROPHILS % (AUTO) 72.5 % (45.0-75.0); PLATELET COUNT 214 K/UL (150-450); RED BLOOD COUNT 3.41 M/UL (4.70-6.10); RED CELL DISTRIBUTION WIDTH 16.7 % (11.6-14.8); WHITE BLOOD COUNT 6.9 K/UL (4.8-10.8)
[2018-12-20] MEDS: Nitroglycerin 2% oint pkt TOPIC SCH ×5 (06:00→18:00)
[2018-12-20] MEDS: Renvela 800mg Pkt GT SCH (06:04)
[2018-12-20] MEDS: NovoLOG Insulin Flexpen SUBQ SCH ×3 (06:05→17:59)
[2018-12-20] MEDS ORDERED: Heparin 25,000u/D5W 500ml 500 ML IV SCH (07:00)
[2018-12-20 08:00] VITALS: BP 94/60
[2018-12-20] MEDS: Midodrine 10mg tab GT SCH ×3 (08:10→17:57)
[2018-12-20] MEDS: Bacitracin Oint UD TOPIC SCH ×2 (08:12→21:08)
[2018-12-20] MEDS: Carvedilol 6.25mg Tab PEG SCH ×2 (08:13→21:08)
[2018-12-20] MEDS: Albuterol/Ipratropium 3ml neb HHN SCH ×2 (08:42→11:09)
--- NOTE | 2018-12-20 09:03 | General Progress Note ---
Assessment/Plan Problem List: (1) Transplant ICD Codes: Z94.9 - Transplanted organ and tissue status, unspecified SNOMED: 891197518 (2) HTN (hypertension) ICD Codes: I10 - Essential (primary) hypertension SNOMED: 33360398 (3) Pacemaker ICD Codes: Z95.0 - Presence of cardiac pacemaker SNOMED: 314566253 (4) CHF (congestive heart failure) ICD Codes: I50.9 - Heart failure, unspecified SNOMED: 25150344 (5) DM (diabetes mellitus) ICD Codes: E11.9 - Type 2 diabetes mellitus without complications SNOMED: 05029896 (6) Foot ulcer ICD Codes: L97.509 - Non-pressure chronic ulcer of other part of unspecified foot with unspecified severity SNOMED: 35405978 Qualifiers: Qualified Codes: L97.511 - Non-pressure chronic ulcer of other part of right foot limited to breakdown of skin (7) ESRD (end stage renal disease) on dialysis ICD Codes: N18.6 - End stage renal disease; Z99.2 - Dependence on renal dialysis SNOMED: 923798784 Assessment/Plan: History of liver transplant, currently on Prograf C. difficile negative status post tracheostomy and PEG Infected G-tube site, fu ID recs would care cx >> GRAM NEGATIVE BACILLUS GT site care BID/prn topical abx around GT site per ID HD per nephro cont tacrolimus prn transfusions ppi zofran prn bowel regimen follow labs supportive care Subjective ROS Limited/Unobtainable: No Allergies: Coded Allergies: CEPHALEXIN (Unverified Allergy, Unknown, 02/24/14) SULFAMETHOXAZOLE (Unverified Allergy, Unknown, 02/24/14) TRIMETHOPRIM (Unverified Allergy, Unknown, 02/24/14) Subjective he pulled his NGT again Objective Last 24 Hour Vital Signs Date Time Temp Pulse Resp B/P (MAP) Pulse Ox O2 Delivery O2 Flow Rate FiO2 12/20/18 08:44 Mechanical Ventilator 12/20/18 08:43 Mechanical Ventilator 12/20/18 08:13 72 94/60 12/20/18 08:00 97.0 72 22 94/60 (71) 99 12/20/18 07:15 74 24 30 12/20/18 06:00 114/71 12/20/18 05:18 72 23 30 35 12/20/18 04:00 97.5 72 22 114/71 (85) 99 12/20/18 04:00 30 12/20/18 04:00 Mechanical Ventilator 12/20/18 04:00 73 12/20/18 03:19 72 25 30 35 12/20/18 01:16 73 24 30 35 12/20/18 00:00 30 12/20/18 00:00 71 12/20/18 00:00 Mechanical Ventilator 12/20/18 00:00 97.2 72 24 90/60 (70) 98 12/20/18 00:00 Mechanical Ventilator 12/19/18 22:58 71 24 30 35 12/19/18 21:31 73 141/106 12/19/18 21:23 73 24 30 35 12/19/18 20:00 76 12/19/18 20:00 Mechanical Ventilator 12/19/18 20:00 30 12/19/18 20:00 97.7 76 25 109/72 (84) 98 12/19/18 19:25 76 20 98 Mechanical Ventilator 30 12/19/18 19:16 76 26 30 35 12/19/18 19:15 78 25 98 Mechanical Ventilator 30 12/19/18 18:00 105/42 12/19/18 17:17 74 25 30 35 12/19/18 16:00 97.5 70 24 105/42 (63) 97 12/19/18 16:00 Mechanical Ventilator 12/19/18 16:00 30 12/19/18 16:00 73 12/19/18 15:21 73 20 98 Mechanical Ventilator 30 12/19/18 15:11 73 24 96 Mechanical Ventilator 35 12/19/18 15:10 73 24 30 35 12/19/18 13:15 71 20 30 35 12/19/18 12:38 97.0 70 23 119/63 (81) 98 12/19/18 12:00 Mechanical Ventilator 12/19/18 12:00 119/63 12/19/18 12:00 71 12/19/18 12:00 30 12/19/18 11:00 75 21 99 Mechanical Ventilator 30 12/19/18 11:00 75 21 30 35 12/19/18 11:00 75 21 99 Mechanical Ventilator 35 12/19/18 10:42 102/71 (81) 12/19/18 10:36 70 99 12/19/18 09:30 74 21 30 35 Intake and Output 12/19/18 12/20/18 19:00 07:00 Intake Total 1087.848 ml 1062.111 ml Output Total 800 ml Balance 287.848 ml 1062.111 ml Free Water 150 ml 150 ml IV Total 442.848 ml 372.111 ml Tube Feeding 495 ml 540 ml Hemodialysis UF 800 ml # Bowel Movements 1 Laboratory Tests 12/19/18 09:30: Sodium Level 128L, Potassium Level 4.6, Chloride Level 91L, Carbon Dioxide Level 28, Anion Gap 9, Blood Urea Nitrogen 69H, Creatinine 7.1H, Estimat Glomerular Filtration Rate 7.8, Glucose Level 215H, Calcium Level 8.4L, Phosphorus Level 5.6H, Iron Level 36L, Total Iron Binding Capacity 151L, Percent Iron Saturation 24, Unsaturated Iron Binding 115, Ferritin 633H, Total Bilirubin 0.2, Aspartate Amino Transf (AST/SGOT) 15, Alanine Aminotransferase ( ALT/SGPT) 9L, Alkaline Phosphatase 126H, Total Protein 6.3L, Albumin 1.8L, Globulin 4.5, Albumin/Globulin Ratio 0.4L 12/20/18 03:30: White Blood Count 6.9, Red Blood Count 3.41L, Hemoglobin 8.5L, Hematocrit 27.7L , Mean Corpuscular Volume 81, Mean Corpuscular Hemoglobin 24.9L, Mean Corpuscular Hemoglobin Concent 30.7L, Red Cell Distribution Width 16.7H, Platelet Count 214, Mean Platelet Volume 6.4L, Neutrophils (%) (Auto) 72.5, Lymphocytes (%) (Auto) 17.0L, Monocytes (%) (Auto) 9.3, Eosinophils (%) (Auto) 0.0, Basophils (%) (Auto) 1.1, Activated Partial Thromboplast Time > 150*H Height (Feet): 5 Height (Inches): 4.00 Weight (Pounds): 240 General Appearance: no apparent distress EENT: normal ENT inspection Neck: supple Cardiovascular: normal rate Respiratory/Chest: decreased breath sounds Abdomen: normal bowel sounds, non tender, soft Extremities: non-tender Jorge Escalera MD December 20, 2018 09:03
[2018-12-20 12:00] VITALS: BP 139/86
--- NOTE | 2018-12-20 13:35 | Neurology Progress Note ---
Interim History Interim History Interim History Mr. Restrepo feels better today. The right upper extremity is less painful. However the right lower extremity is still very painful. He was unable to sleep well last night. He is breathing well. He feels generally weaker. The mind has not been completely clear. He has not walked yet. The right upper extremity is still swollen and painful. He denies any new neurologic symptoms. Review of Systems Neuro Review of Systems Benign. Objective Physical Exam Last Vital Signs Date Time Temp Pulse Resp B/P (MAP) Pulse Ox O2 Delivery O2 Flow Rate FiO2 12/20/18 12:56 63 16 30 12/20/18 12:00 97.0 139/86 (103) 99 12/20/18 12:00 Mechanical Ventilator 12/16/18 13:50 12.0 Laboratory Tests Test 12/20/18 03:30 White Blood Count 6.9 K/UL (4.8-10.8) Red Blood Count 3.41 M/UL (4.70-6.10) L Hemoglobin 8.5 G/DL (14.2-18.0) L Hematocrit 27.7 % (42.0-52.0) L Mean Corpuscular Volume 81 FL (80-99) Mean Corpuscular Hemoglobin 24.9 PG (27.0-31.0) L Mean Corpuscular Hemoglobin Concent 30.7 G/DL (32.0-36.0) L Red Cell Distribution Width 16.7 % (11.6-14.8) H Platelet Count 214 K/UL (150-450) Mean Platelet Volume 6.4 FL (6.5-10.1) L Neutrophils (%) (Auto) 72.5 % (45.0-75.0) Lymphocytes (%) (Auto) 17.0 % (20.0-45.0) L Monocytes (%) (Auto) 9.3 % (1.0-10.0) Eosinophils (%) (Auto) 0.0 % (0.0-3.0) Basophils (%) (Auto) 1.1 % (0.0-2.0) Activated Partial Thromboplast Time > 150 SEC (23-33) *H Neurologic Exam Objective PHYSICAL EXAMINATION: GENERAL: He is a well-developed and well-nourished, pleasant gentleman, lying in bed connected to a ventilator via a tracheostomy. HEAD: Normocephalic and atraumatic. EENT: Examination benign. NECK: No neck rigidity was observed. He did have a tracheostomy. NEUROLOGICAL EXAMINATION: MENTAL STATUS EXAMINATION: He was awake and alert. He was fully oriented. He was able to remember presidents Trump and Obama. He was unable to cooperate for further mental status testing. SPEECH: Could not be tested, but he was able to mouth words relatively well. LANGUAGE: He was able to comprehend and express himself relatively well. CRANIAL NERVES EXAMINATION: II: The visual mckeon were intact to confrontation testing. III, IV & : The external ocular movements were full and the pupils 3 mm in diameter, equal, round, regular, and reactive sluggishly to light. V: He had normal facial sensations, and the temporales, masseters, and pterygoids functioned normally. VII: He had normal facial expressions and no facial asymmetry. VIII: Hearing was decreased bilaterally with worse hearing on the left side compared to the right. IX: The palate moved symmetrically on phonation. X: Could not be tested. XI: The sternocleidomastoids and trapezii functioned normally. XII: The tongue was in the midline without any fasciculations or atrophy. MOTOR SYSTEM: The tone was normal in all four extremities. Examination of muscle mass revealed generalized muscle wasting. Examination of power revealed G 5/5 power except for G 4+/5 power in the iliopsoas muscles bilaterally. Power in the right upper extremity was limited by pain. Power in the right foot was also limited by pain. SENSORY EXAMINATION: He had intact sensations to light touch. Other sensory modalities could not be tested adequately. REFLEXES: 1+ and bilaterally symmetrical at the biceps, triceps, brachioradialis , and knees, 0 at both ankles. The plantar responses were flexor bilaterally. COORDINATION: He performed well on [id number] testing. STANCE & GAIT: Were deferred. Impression/Recommendations Diagnostic Impression 1. Mr. Gregg Restrepo is a 68-year-old, right-handed, gentleman with past history of multiple medical problems including hypertension, diabetes mellitus, end-stage renal disease for which he is hemodialysis dependent, prior episodes of sepsis, and prior episodes of encephalopathy, who was admitted to [facility] on October 31, 2018. Following that, he has had a stormy hospital course including pneumonia and sepsis, right foot infection, respiratory failure for which he has needed tracheostomy and in addition he has exhibited an alteration in his mental state with some waxing and waning of his mental state. 2. He feels better today. The right upper extremity is less painful. However the right lower extremity is still very painful. He was unable to sleep well last night. He is breathing well. He feels generally weaker. The mind has not been completely clear. He has not walked yet. The right upper extremity is still swollen and painful. He denies any new neurologic symptoms. 3. On neurological examination, at this time, he is fully oriented, has mild problems with recent and remote memory, normal visuospatial function, minimally impaired higher cognitive function. He is able to comprehend and express himself well. He does have mild G 4+/5 weakness in the iliopsoas muscles bilaterally. Power in the right upper extremity was limited by pain. Power in the right foot was also limited by pain. He had globally diminished deep tendon reflexes with loss of ankle jerks, but no definite focal or lateralizing neurological findings. 4. His latest laboratory data on my initial evaluation revealed that he was anemic with a hemoglobin of 10.8 G. His last blood gas performed on 11/14/2018 revealed that he had a pCO2 elevated at 56.4 with a normal pO2 of 88.3 and normal pH of 7.37. His latest chemistry panel revealed that he was mildly hyponatremic with a sodium of 130, and had a chloride of 90. The BUN was elevated at 75, creatinine elevated at 7.4, glucose elevated at 156, Hemoglobin A1c elevated at 6.9%, Alkaline phosphatase elevated at 131, and ProBNP greater than 35,000. His last B12 level on 11/07/2018 was 723. His last folate on was 18.6. His last TSH on 12/06/2018 was 4.82, which is minimally elevated. 5. The CT scan of the brain performed on 11/10/2018 was benign for acute intracranial pathology. 6. The EEG done on 12/08/18 revealed left temporal dysfunction. 7. The patient's history and neurological examination are most consistent with mild multifactorial encephalopathy, which apparently waxes and wanes, but no definite focal neurological dysfunction. His encephalopathy is stable today. 8. He tells me that he had a brain bleed many years ago. I did review his imaging done at [facility] a few years ago and he had closed head injuries with subarachnoid and subdural blood in the past. Recommendations 1. Continue present management. 2. Continue to correct the patient's toxic metabolic imbalances. 3. Mobilize with PT/OT. 4. Consider getting ENT evaluation for worsening hearing. 5. Observe closely. Pantera Cool M.D., M.S.P.H. Pantera Cool MD December 20, 2018 13:35
--- NOTE | 2018-12-20 14:39 | General Progress Note ---
Assessment/Plan Assessment/Plan: #Right heel diabetic foot ulcer without osteomyelitis #PAD -seen by Podiatry and ID -s/p Vanco x 2 weeks during HD -s/p selective RLE angio with SFA/pop stenting -continue heparin drip -Plan for R IJ insertion for better vascular access by Surgery, d/w Dr. French #Acute Resp hypercapnic failure s/p trach #Angioedema -continue trach care -Pulm following #End-stage renal disease, on dialysis -HD per Nephrology #Coronary artery disease -continue ASA, Coreg, atorva -cardiology following #Type 2 DM -ISS #Acute metabolic encephalopathy -continue supportive care -Neurology following #history of chronic HCV infection #history of liver transplant -continue Prograf -GI following #S/p PEG with PEG site cellulitis -s/p antibiotics per ID and GI -continue local wound care I spent 47 minutes on this patient's case, and 24 minutes was dedicated to counseling and/or care coordination. I spent an additional 36 minutes on review of medical records including prior outside hospital records, consult notes, progress notes, procedures, imaging, labs, hemodynamics, and other clinical documentation. Subjective Date patient seen: December 20, 2018 Time patient seen: 14:38 ROS Limited/Unobtainable: No Allergies: Coded Allergies: CEPHALEXIN (Unverified Allergy, Unknown, 02/24/14) SULFAMETHOXAZOLE (Unverified Allergy, Unknown, 02/24/14) TRIMETHOPRIM (Unverified Allergy, Unknown, 02/24/14) Subjective Pt remains trached and vented. Unable to voice answers. Denied any chest pain, dyspnea. RN concerned about poor vascular access, asking if L foot can be used. . Objective Last 24 Hour Vital Signs Date Time Temp Pulse Resp B/P (MAP) Pulse Ox O2 Delivery O2 Flow Rate FiO2 12/20/18 13:33 139/86 12/20/18 12:56 63 16 30 12/20/18 12:00 97.0 72 24 139/86 (103) 99 12/20/18 12:00 30 12/20/18 12:00 Mechanical Ventilator 12/20/18 11:19 78 20 100 Mechanical Ventilator 30 12/20/18 11:09 70 23 100 Mechanical Ventilator 30 12/20/18 11:06 70 23 30 12/20/18 09:09 76 23 30 12/20/18 08:44 Mechanical Ventilator 12/20/18 08:43 Mechanical Ventilator 12/20/18 08:13 72 94/60 12/20/18 08:00 97.0 72 22 94/60 (71) 99 12/20/18 08:00 30 12/20/18 08:00 Mechanical Ventilator 12/20/18 07:59 73 12/20/18 07:15 74 24 30 12/20/18 06:00 114/71 12/20/18 05:18 72 23 30 35 12/20/18 04:00 97.5 72 22 114/71 (85) 99 12/20/18 04:00 30 12/20/18 04:00 Mechanical Ventilator 12/20/18 04:00 73 12/20/18 03:19 72 25 30 35 12/20/18 01:16 73 24 30 35 12/20/18 00:00 30 12/20/18 00:00 71 12/20/18 00:00 Mechanical Ventilator 12/20/18 00:00 97.2 72 24 90/60 (70) 98 12/20/18 00:00 Mechanical Ventilator 12/19/18 22:58 71 24 30 35 12/19/18 21:31 73 141/106 12/19/18 21:23 73 24 30 35 12/19/18 20:00 76 12/19/18 20:00 Mechanical Ventilator 12/19/18 20:00 30 12/19/18 20:00 97.7 76 25 109/72 (84) 98 12/19/18 19:25 76 20 98 Mechanical Ventilator 30 12/19/18 19:16 76 26 30 35 12/19/18 19:15 78 25 98 Mechanical Ventilator 30 12/19/18 18:00 105/42 12/19/18 17:17 74 25 30 35 12/19/18 16:00 97.5 70 24 105/42 (63) 97 12/19/18 16:00 Mechanical Ventilator 12/19/18 16:00 30 12/19/18 16:00 73 12/19/18 15:21 73 20 98 Mechanical Ventilator 30 12/19/18 15:11 73 24 96 Mechanical Ventilator 35 12/19/18 15:10 73 24 30 35 Intake and Output 12/19/18 12/20/18 19:00 07:00 Intake Total 1087.848 ml 1062.111 ml Output Total 800 ml Balance 287.848 ml 1062.111 ml Free Water 150 ml 150 ml IV Total 442.848 ml 372.111 ml Tube Feeding 495 ml 540 ml Hemodialysis UF 800 ml # Bowel Movements 1 Laboratory Tests 12/20/18 03:30: White Blood Count 6.9, Red Blood Count 3.41L, Hemoglobin 8.5L, Hematocrit 27.7L , Mean Corpuscular Volume 81, Mean Corpuscular Hemoglobin 24.9L, Mean Corpuscular Hemoglobin Concent 30.7L, Red Cell Distribution Width 16.7H, Platelet Count 214, Mean Platelet Volume 6.4L, Neutrophils (%) (Auto) 72.5, Lymphocytes (%) (Auto) 17.0L, Monocytes (%) (Auto) 9.3, Eosinophils (%) (Auto) 0.0, Basophils (%) (Auto) 1.1, Activated Partial Thromboplast Time > 150*H 12/20/18 13:50: Activated Partial Thromboplast Time 39H Height (Feet): 5 Height (Inches): 4.00 Weight (Pounds): 240 Objective General: alert, cooperative, no distress, appears stated age Head: normocephalic, without obvious abnormality, atraumatic Eyes: conjunctivae/corneas clear. PERRL, EOM's intact Neck: +trached Lungs: clear to auscultation bilaterally Heart: regular rate and rhythm, S1, S2 normal, no murmur, click, rub or gallop Abdomen: soft, non-tender, non-distended, bowel sounds normal; no masses or organomegaly Extremities: extremities normal, atraumatic, no cyanosis or edema Pulses: 2+ and symmetric Skin: skin color, texture, turgor normal; no rashes or lesions Neurologic: grossly normal, no focal deficits Remington Samaniego MD December 20, 2018 14:39
[2018-12-20] MEDS ORDERED: Heparin 5000 units/ml inj IV SCH (15:00)
--- NOTE | 2018-12-20 15:42 | General Progress Note ---
Assessment/Plan Assessment/Plan: Assessment and Recs: # Coagulopathy likely secondary to decreased Vitk dependent cofactors (high INR , PT) likely currently is on a heparin gtt for pad --> monitor closely for any evidence of bleeding --> VIT K on prn basis sq can be administered ==> recently has improved inr 1.2-->1.1-->1.2 # Anemia of chronic disease due to underlying chronic medical issues, multifactorial as well as kidney disease --> Anemia workup has been ordered, rule out gi bleed, seen by gi, also reviewed w/u --> HAS BEEN reordered since refusing --> No evidence of hemolysis is noted, peripheral smear has been reviewed. --> Epogen can be consider if hgb downtrends --> Medications have been reviewed --> evaluate with Gi team prn --> transfuse if hgb is < 7 (will trend CBC daily) ==> hgb trend 11.2-->10.9-->10.8-->10.7-->10.2-->9.7-->9.7-->8.5 # Failure to thrive is likely related to poor overall status, poor functional status --> with multiple decub ulcerations that are noted, seen by id/surgery --> s/p trach as well --> cea is wnl # Acute respiratory failure is now s/p trach to vent --> as per surgery recs # Ground glass opacities present on imaging of lung --> with pleural effusions, s/p drainage at this time --> no evidence for malignancy is noted # Pleural effusion --> s/p thoracentesis # Hyperkalemia --> kayxelate has been given # Renal failure --> per renal recs, appreciated --> getting hd as per schedule # Altered level of consciousness ==> currently as per baseline The timing of this note does not necessarily reflect the time of the patient was seen. Greatly appreciate consultation! Subjective Constitutional: Denies: no symptoms, chills, diaphoresis, fever, malaise, weakness, other HEENT: Denies: no symptoms, eye pain, blurred vision, tearing, double vision, ear pain, ear discharge, nose pain, nose congestion, throat pain, throat swelling, mouth pain, mouth swelling, other Cardiovascular: Denies: no symptoms, chest pain, edema, irregular heart rate, lightheadedness, palpitations, syncope, other Respiratory: Denies: no symptoms, cough, orthopnea, shortness of breath, SOB with excertion, SOB at rest, sputum, stridor, wheezing, other Gastrointestinal/Abdominal: Denies: no symptoms, abdomen distended, abdominal pain, black stools, tarry stools, blood in stool, constipated, diarrhea, difficulty swallowing, nausea, poor appetite, poor fluid intake, rectal bleeding , vomiting, other 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: Denies: no symptoms, anxiety, depressed, emotional problems, headache, numbness, paresthesia, pre-existing deficit, seizure, tingling, tremors, weakness, other Endocrine: Denies: no symptoms, excessive sweating, flushing, intolerance to cold, intolerance to heat, increased hunger, increased thirst, increased urine, unexplained weight gain, unexplained weight loss, other Allergies: Coded Allergies: CEPHALEXIN (Unverified Allergy, Unknown, 02/24/14) SULFAMETHOXAZOLE (Unverified Allergy, Unknown, 02/24/14) TRIMETHOPRIM (Unverified Allergy, Unknown, 02/24/14) Subjective 11/30: comfortable, on abx, no complaints, on t-piece 12/01: to have hd done potentially tomorrow, is more alert/awake 12/02: no major bleeding, hgb remains approx 11, no changes 12/03: no events, breathing mildly better, hgb is improved 12/04: on vent/trach, no major changes, sr ekg 12/10: small amount of secretions, on trach/vent, no issues otherwise 12/11: no major issues, no complaints, labs reviewed, no sig changes 12/13: no events to report, no fevers or chills, awaiting placement 12/14: no changes, no major events to report, no fevers or chills 12/15: pending placement, getting gt feeds and hd as per renal 12/16: labs have been reviewed, cbc noted, no changes 12/17: no events, no fevers, no cp, hgb remains stable 12/18: restarted on heparin gtt, seen by pulm, cards 12/20: continues to be on heparin gtt, no bleeding reported, no f/c Objective Last 24 Hour Vital Signs Date Time Temp Pulse Resp B/P (MAP) Pulse Ox O2 Delivery O2 Flow Rate FiO2 12/20/18 14:48 69 23 30 12/20/18 14:16 97.0 12/20/18 13:33 139/86 12/20/18 12:56 63 16 30 12/20/18 12:00 97.0 72 24 139/86 (103) 99 12/20/18 12:00 30 12/20/18 12:00 Mechanical Ventilator 12/20/18 11:19 78 20 100 Mechanical Ventilator 30 12/20/18 11:09 70 23 100 Mechanical Ventilator 30 12/20/18 11:06 70 23 30 12/20/18 09:09 76 23 30 12/20/18 08:44 Mechanical Ventilator 12/20/18 08:43 Mechanical Ventilator 12/20/18 08:13 72 94/60 12/20/18 08:00 97.0 72 22 94/60 (71) 99 12/20/18 08:00 30 12/20/18 08:00 Mechanical Ventilator 12/20/18 07:59 73 12/20/18 07:15 74 24 30 12/20/18 06:00 114/71 12/20/18 05:18 72 23 30 35 12/20/18 04:00 97.5 72 22 114/71 (85) 99 12/20/18 04:00 30 12/20/18 04:00 Mechanical Ventilator 12/20/18 04:00 73 12/20/18 03:19 72 25 30 35 12/20/18 01:16 73 24 30 35 12/20/18 00:00 30 12/20/18 00:00 71 12/20/18 00:00 Mechanical Ventilator 12/20/18 00:00 97.2 72 24 90/60 (70) 98 12/20/18 00:00 Mechanical Ventilator 12/19/18 22:58 71 24 30 35 12/19/18 21:31 73 141/106 12/19/18 21:23 73 24 30 35 12/19/18 20:00 76 12/19/18 20:00 Mechanical Ventilator 12/19/18 20:00 30 12/19/18 20:00 97.7 76 25 109/72 (84) 98 12/19/18 19:25 76 20 98 Mechanical Ventilator 30 12/19/18 19:16 76 26 30 35 12/19/18 19:15 78 25 98 Mechanical Ventilator 30 12/19/18 18:00 105/42 12/19/18 17:17 74 25 30 35 12/19/18 16:00 97.5 70 24 105/42 (63) 97 12/19/18 16:00 Mechanical Ventilator 12/19/18 16:00 30 12/19/18 16:00 73 Intake and Output 12/19/18 12/20/18 19:00 07:00 Intake Total 1087.848 ml 1062.111 ml Output Total 800 ml Balance 287.848 ml 1062.111 ml Free Water 150 ml 150 ml IV Total 442.848 ml 372.111 ml Tube Feeding 495 ml 540 ml Hemodialysis UF 800 ml # Bowel Movements 1 Laboratory Tests 12/20/18 03:30: White Blood Count 6.9, Red Blood Count 3.41L, Hemoglobin 8.5L, Hematocrit 27.7L , Mean Corpuscular Volume 81, Mean Corpuscular Hemoglobin 24.9L, Mean Corpuscular Hemoglobin Concent 30.7L, Red Cell Distribution Width 16.7H, Platelet Count 214, Mean Platelet Volume 6.4L, Neutrophils (%) (Auto) 72.5, Lymphocytes (%) (Auto) 17.0L, Monocytes (%) (Auto) 9.3, Eosinophils (%) (Auto) 0.0, Basophils (%) (Auto) 1.1, Activated Partial Thromboplast Time > 150*H 12/20/18 13:50: Activated Partial Thromboplast Time 39H Height (Feet): 5 Height (Inches): 4.00 Weight (Pounds): 240 Objective PE General Appearance: mild distress, moderate distress Lines, tubes and drains: peripheral HEENT: EOMI, thrush, tonsils swollen ++trach Neck: normal inspection Respiratory/Chest: decreased breath sounds, accessory muscle use Cardiovascular/Chest: tachycardia Abdomen: soft, no organomegaly, no mass, ++ peg Extremities: other Skin Exam: warm/dry, rash Neurologic: alert, responsive Zacarias Khoury MD December 20, 2018 15:42
--- NOTE | 2018-12-20 15:48 | Infectious Diseases Prog Note ---
Assessment/Plan Problems: (1) G-tube site cellulitis Assessment & Plan: culture from the G tube site grew pseudomonas , S/P ciprofloxacin for 7 days , continue local care and antibiotics as per GI. keep area clean and dry (2) Thrush, oral Assessment & Plan: continue local nystatin as needed , S/P micafungin for three weeks empirically (3) HCV antibody positive Assessment & Plan: no evidence of active infection, with undetectable viral load , suspect due to previous infection , cleared, S/P liver transplant . (4) Foot ulcer Assessment & Plan: in diabetic patient , with MRSA , S/P vancomycin treatment with HD for two weeks , had vascular eval with revascularization, S/P ulcer resection by weatherization coordinator today . bone scan ruled out osteomyelitis of the heel . continue local wound care as per weatherization coordinator . wound looks clean (5) DM (diabetes mellitus) Assessment & Plan: recommend tight glycemic control to keep blood glucose between 100-140 (6) CHF (congestive heart failure) Assessment & Plan: on HD , renal is following, monitor daily weight (7) Severe tongue swelling Assessment & Plan: improving , s/p tracheostomy to protect his airway since respiratory status worsened . now improving, pulmonary is following (8) Pleural effusion Assessment & Plan: recurrent on the right, with lung collapse , S/P thoracentesis X2 with removal of 1.5 cc of clear fluids. PREVIOUS culture were negative with negative cytology Subjective Constitutional: Reports: no symptoms HEENT: Reports: no symptoms Respiratory: Reports: no symptoms Breasts: Reports: no symptoms Cardiovascular: Reports: no symptoms Gastrointestinal/Abdominal: Reports: no symptoms Genitourinary: Reports: no symptoms Neurologic: Reports: weakness Psychiatric: Reports: no symptoms Skin: Reports: ulcer Endocrine: Reports: no symptoms Hematologic: Reports: no symptoms Musculoskeletal: Reports: no symptoms Allergies: Coded Allergies: CEPHALEXIN (Unverified Allergy, Unknown, 02/24/14) SULFAMETHOXAZOLE (Unverified Allergy, Unknown, 02/24/14) TRIMETHOPRIM (Unverified Allergy, Unknown, 02/24/14) Subjective he was comfortable, lying in bed, no tongue swelling , awake and responsive, no fever or chills, no significant secretions , no SOB . has no thrush on his tongue Objective Vital Signs Last 24 Hour Vital Signs Date Time Temp Pulse Resp B/P (MAP) Pulse Ox O2 Delivery O2 Flow Rate FiO2 5/5/19 14:48 69 23 30 12/20/18 14:16 97.0 12/20/18 13:33 139/86 12/20/18 12:56 63 16 30 12/20/18 12:00 97.0 72 24 139/86 (103) 99 12/20/18 12:00 30 12/20/18 12:00 Mechanical Ventilator 12/20/18 11:19 78 20 100 Mechanical Ventilator 30 12/20/18 11:09 70 23 100 Mechanical Ventilator 30 12/20/18 11:06 70 23 30 12/20/18 09:09 76 23 30 12/20/18 08:44 Mechanical Ventilator 12/20/18 08:43 Mechanical Ventilator 12/20/18 08:13 72 94/60 12/20/18 08:00 97.0 72 22 94/60 (71) 99 12/20/18 08:00 30 12/20/18 08:00 Mechanical Ventilator 12/20/18 07:59 73 12/20/18 07:15 74 24 30 12/20/18 06:00 114/71 12/20/18 05:18 72 23 30 35 12/20/18 04:00 97.5 72 22 114/71 (85) 99 12/20/18 04:00 30 12/20/18 04:00 Mechanical Ventilator 12/20/18 04:00 73 12/20/18 03:19 72 25 30 35 12/20/18 01:16 73 24 30 35 12/20/18 00:00 30 12/20/18 00:00 71 12/20/18 00:00 Mechanical Ventilator 12/20/18 00:00 97.2 72 24 90/60 (70) 98 12/20/18 00:00 Mechanical Ventilator 12/19/18 22:58 71 24 30 35 12/19/18 21:31 73 141/106 12/19/18 21:23 73 24 30 35 12/19/18 20:00 76 12/19/18 20:00 Mechanical Ventilator 12/19/18 20:00 30 12/19/18 20:00 97.7 76 25 109/72 (84) 98 12/19/18 19:25 76 20 98 Mechanical Ventilator 30 12/19/18 19:16 76 26 30 35 12/19/18 19:15 78 25 98 Mechanical Ventilator 30 12/19/18 18:00 105/42 12/19/18 17:17 74 25 30 35 12/19/18 16:00 97.5 70 24 105/42 (63) 97 12/19/18 16:00 Mechanical Ventilator 12/19/18 16:00 30 12/19/18 16:00 73 Height (Feet): 5 Height (Inches): 4.00 Weight (Pounds): 240 General Appearance: WD/WN, no acute distress HEENT: normocephalic, atraumatic, anicteric, mucous membranes moist, PERRL, EOMI, pharynx normal, supple, no JVD, status post trach Respiratory/Chest: chest wall non-tender, lungs clear, no respiratory distress , no accessory muscle use, decreased breath sounds, crackles/rales Cardiovascular: normal peripheral pulses, normal rate, regular rhythm, no gallop/murmur, no JVD Abdomen: normal bowel sounds, soft, non tender, no organomegaly, non distended , no mass, no scars Genitourinary: normal external genitalia Extremities: no cyanosis, no clubbing Skin: no rash, no lesions 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: 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 normal, no motor/sensory deficits, alert, responsive Lymphatic: no neck adenopathy, no groin adenopathy Musculoskeletal: normal muscle bulk, no effusion Laboratory Tests Test 12/20/18 03:30 12/20/18 13:50 White Blood Count 6.9 K/UL (4.8-10.8) Red Blood Count 3.41 M/UL (4.70-6.10) L Hemoglobin 8.5 G/DL (14.2-18.0) L Hematocrit 27.7 % (42.0-52.0) L Mean Corpuscular Volume 81 FL (80-99) Mean Corpuscular Hemoglobin 24.9 PG (27.0-31.0) L Mean Corpuscular Hemoglobin Concent 30.7 G/DL (32.0-36.0) L Red Cell Distribution Width 16.7 % (11.6-14.8) H Platelet Count 214 K/UL (150-450) Mean Platelet Volume 6.4 FL (6.5-10.1) L Neutrophils (%) (Auto) 72.5 % (45.0-75.0) Lymphocytes (%) (Auto) 17.0 % (20.0-45.0) L Monocytes (%) (Auto) 9.3 % (1.0-10.0) Eosinophils (%) (Auto) 0.0 % (0.0-3.0) Basophils (%) (Auto) 1.1 % (0.0-2.0) Activated Partial Thromboplast Time > 150 SEC (23-33) *H 39 SEC (23-33) H Current Medications Medications (Trade) Dose Ordered Sig/Aleks Route PRN Reason Start Time Stop Time Status Last Admin Dose Admin Atorvastatin Calcium (Lipitor) 10 mg BEDTIME NG 12/01/18 21:00 12/21/18 20:59 12/19/18 21:32 Bacitracin (Bacitracin) 1 applic EVERY 12 HOURS TOPIC 12/11/18 21:00 01/06/19 17:59 12/20/18 08:12 Carvedilol (Coreg) 6.25 mg EVERY 12 HOURS PEG 12/06/18 21:00 01/03/19 20:59 12/19/18 21:31 Clotrimazole (Lotrimin) 1 applic BID TOPIC 12/07/18 18:00 01/06/19 17:59 12/20/18 08:10 Collagenase (Santyl) 1 applic DAILY TOPIC 12/19/18 09:00 01/18/19 08:59 12/20/18 08:10 Dextrose (Dextrose 50%) 25 ml Q30M PRN IV Hypoglycemia 12/01/18 19:30 12/31/18 19:29 Dextrose (Dextrose 50%) 50 ml Q30M PRN IV Hypoglycemia 12/01/18 19:30 12/31/18 19:29 Docusate Sodium (Colace) 100 mg EVERY 8 HOURS PRN GT constipation 11/24/18 18:51 12/20/18 18:50 Escitalopram Oxalate (Lexapro) 10 mg DAILY GT 12/18/18 09:00 01/17/19 08:59 12/20/18 08:09 Heparin Sodium (Porcine) (Heparin 5000 units/ml) 8,500 units ONCE IV 12/20/18 15:00 12/20/18 16:00 12/20/18 14:54 Heparin Sodium/ Dextrose 500 ml @ 36.904 mls/ hr ADJUST PER PROTOCOL IV 12/20/18 15:00 01/19/19 14:59 12/20/18 15:04 Hydralazine HCl (Apresoline) 10 mg Q6H PRN GT For High Blood Pressure 12/03/18 16:45 01/02/19 16:44 12/07/18 04:47 Hydromorphone HCl (Dilaudid) 1 mg Q4H PRN GT For Pain 12/14/18 15:30 12/21/18 15:29 12/20/18 13:46 Insulin Aspart (NovoLOG) EVERY 6 HOURS SUBQ 12/02/18 00:00 12/31/18 20:59 12/20/18 13:31 Lactulose (Cephulac) 20 gm THREE TIMES A DAY PRN GT Constipation 11/24/18 18:51 12/23/18 18:50 Midodrine (Pro-Amatine) 10 mg THREE TIMES A DAY GT 12/19/18 13:00 01/18/19 12:59 12/20/18 08:10 Mirtazapine (Remeron) 7.5 mg BEDTIME GT 12/14/18 21:00 01/13/19 20:59 12/19/18 21:32 Nicotine (Nicoderm) 1 patch Q24H TDERMAL 12/01/18 22:15 12/21/18 22:14 12/19/18 21:31 Nitroglycerin (Nitro-Bid) 1 inch TID@0600,1200,1800 TOPIC 12/07/18 12:00 01/06/19 11:59 12/20/18 13:33 Tacrolimus (Prograf) 2 mg MoWeFr@0000,1200 ORAL 12/07/18 00:00 12/21/18 00:00 12/18/18 15:02 Tacrolimus (Prograf) 2 mg SuTuThSa@0900,2100 ORAL 12/17/18 21:00 01/16/19 20:59 12/20/18 08:12 Francois Landis M.D. December 20, 2018 15:47
[2018-12-20 16:00] VITALS: BP 105/77
--- NOTE | 2018-12-20 16:37 | Nephrology Progress Note ---
Assessment/Plan Problem List: (1) ESRD (end stage renal disease) on dialysis (2) Foot ulcer (3) CHF (congestive heart failure) Assessment: Ej Fx 20 % (4) Pacemaker (5) Acute respiratory failure Assessment: with Co2 retention (6) G-tube site cellulitis Assessment ESRD with high K and SOB on admit Foot ulcer, likely infected High Troponin likely NSTMI Pacer , Pleural effusion s/p CABGS s/p Liver transplant Plan on dialysis now BP low- restart midodrine next HD 12/21 GT site infection, topical antibiotic Neuro note appreciated placement in process vascular esteban regarding heel ulcer per Dr Mcgill pain med change to dilaudid GT Now has tracheostomy and PEG Adjust BP meds add nitro paste TID Antibiotics by ID per cardio and ID Podiatry and Vascular surgical fu ? DC planning? PRIMARY MD CHANGED TO DR BARRETT [facility] Subjective ROS Limited/Unobtainable: No Objective Objective Last 24 Hour Vital Signs Date Time Temp Pulse Resp B/P (MAP) Pulse Ox O2 Delivery O2 Flow Rate FiO2 12/20/18 16:00 68 12/20/18 16:00 Mechanical Ventilator 12/20/18 16:00 30 12/20/18 14:48 69 23 30 12/20/18 14:16 97.0 12/20/18 13:33 139/86 12/20/18 12:56 63 16 30 12/20/18 12:00 97.0 72 24 139/86 (103) 99 12/20/18 12:00 71 12/20/18 12:00 30 12/20/18 12:00 Mechanical Ventilator 12/20/18 11:19 78 20 100 Mechanical Ventilator 30 12/20/18 11:09 70 23 100 Mechanical Ventilator 30 12/20/18 11:06 70 23 30 12/20/18 09:09 76 23 30 12/20/18 08:44 Mechanical Ventilator 12/20/18 08:43 Mechanical Ventilator 12/20/18 08:13 72 94/60 12/20/18 08:00 97.0 72 22 94/60 (71) 99 12/20/18 08:00 30 12/20/18 08:00 Mechanical Ventilator 12/20/18 07:59 73 12/20/18 07:15 74 24 30 12/20/18 06:00 114/71 12/20/18 05:18 72 23 30 35 12/20/18 04:00 97.5 72 22 114/71 (85) 99 12/20/18 04:00 30 12/20/18 04:00 Mechanical Ventilator 12/20/18 04:00 73 12/20/18 03:19 72 25 30 35 12/20/18 01:16 73 24 30 35 12/20/18 00:00 30 12/20/18 00:00 71 12/20/18 00:00 Mechanical Ventilator 12/20/18 00:00 97.2 72 24 90/60 (70) 98 12/20/18 00:00 Mechanical Ventilator 12/19/18 22:58 71 24 30 35 12/19/18 21:31 73 141/106 12/19/18 21:23 73 24 30 35 12/19/18 20:00 76 12/19/18 20:00 Mechanical Ventilator 12/19/18 20:00 30 12/19/18 20:00 97.7 76 25 109/72 (84) 98 12/19/18 19:25 76 20 98 Mechanical Ventilator 30 12/19/18 19:16 76 26 30 35 12/19/18 19:15 78 25 98 Mechanical Ventilator 30 12/19/18 18:00 105/42 12/19/18 17:17 74 25 30 35 Intake and Output 12/19/18 12/20/18 19:00 07:00 Intake Total 1087.848 ml 1062.111 ml Output Total 800 ml Balance 287.848 ml 1062.111 ml Free Water 150 ml 150 ml IV Total 442.848 ml 372.111 ml Tube Feeding 495 ml 540 ml Hemodialysis UF 800 ml # Bowel Movements 1 Laboratory Tests 12/20/18 03:30: White Blood Count 6.9, Red Blood Count 3.41L, Hemoglobin 8.5L, Hematocrit 27.7L , Mean Corpuscular Volume 81, Mean Corpuscular Hemoglobin 24.9L, Mean Corpuscular Hemoglobin Concent 30.7L, Red Cell Distribution Width 16.7H, Platelet Count 214, Mean Platelet Volume 6.4L, Neutrophils (%) (Auto) 72.5, Lymphocytes (%) (Auto) 17.0L, Monocytes (%) (Auto) 9.3, Eosinophils (%) (Auto) 0.0, Basophils (%) (Auto) 1.1, Activated Partial Thromboplast Time > 150*H 12/20/18 13:50: Activated Partial Thromboplast Time 39H Height (Feet): 5 Height (Inches): 4.00 Weight (Pounds): 240 General Appearance: no apparent distress Objective no other change Nakul Stevens MD December 20, 2018 16:37
--- NOTE | 2018-12-20 17:27 | Cardiac Electrophysiology PN ---
Assessment/Plan Assessment/Plan 1. Troponin leak due to renal failure. No CP or SOB 2. S/P CABG. On Coreg 6.25 mg bid, aspirin 162 and Lipitor 3. NSVT in setting of old MT and CABG. EF 55%. No Syncope 4. Congestive heart failure. On hemodialysis 5. S/P R. [employer] dual chamber pacemaker with Nl Fx. 6. End-stage renal disease, on hemodialysis per Dr. Stevens S/P Fistulogram by Dr Salmeron 7. Multilevel AOD LE's with non-healing Right foot ulcer. Abdominal Angiogram per Dr Salmeron yesterday Antibiotic per Dr. Landis. FU by Dr. Huizar 8. History of liver transplant on Prograf 9. Respiratory failure, S/P tracheostomy. 10. Pleural effusion. FU Dr. Mendoza 11. Dysphagia, S/P PEG DW RN Subjective Subjective S/P abdominal aortogram for leg pain and fistulogram by Dr. Salmeron. Had HD yesterday. Awaiting placement Objective Last 24 Hour Vital Signs Date Time Temp Pulse Resp B/P (MAP) Pulse Ox O2 Delivery O2 Flow Rate FiO2 12/20/18 16:00 68 12/20/18 16:00 Mechanical Ventilator 12/20/18 16:00 30 12/20/18 14:48 69 23 30 12/20/18 14:16 97.0 12/20/18 13:33 139/86 12/20/18 12:56 63 16 30 12/20/18 12:00 97.0 72 24 139/86 (103) 99 12/20/18 12:00 71 12/20/18 12:00 30 12/20/18 12:00 Mechanical Ventilator 12/20/18 11:19 78 20 100 Mechanical Ventilator 30 12/20/18 11:09 70 23 100 Mechanical Ventilator 30 12/20/18 11:06 70 23 30 12/20/18 09:09 76 23 30 12/20/18 08:44 Mechanical Ventilator 12/20/18 08:43 Mechanical Ventilator 12/20/18 08:13 72 94/60 12/20/18 08:00 97.0 72 22 94/60 (71) 99 12/20/18 08:00 30 12/20/18 08:00 Mechanical Ventilator 12/20/18 07:59 73 5/5/19 07:15 74 24 30 12/20/18 06:00 114/71 12/20/18 05:18 72 23 30 35 12/20/18 04:00 97.5 72 22 114/71 (85) 99 12/20/18 04:00 30 12/20/18 04:00 Mechanical Ventilator 12/20/18 04:00 73 12/20/18 03:19 72 25 30 35 12/20/18 01:16 73 24 30 35 12/20/18 00:00 30 12/20/18 00:00 71 12/20/18 00:00 Mechanical Ventilator 12/20/18 00:00 97.2 72 24 90/60 (70) 98 12/20/18 00:00 Mechanical Ventilator 12/19/18 22:58 71 24 30 35 12/19/18 21:31 73 141/106 12/19/18 21:23 73 24 30 35 12/19/18 20:00 76 12/19/18 20:00 Mechanical Ventilator 12/19/18 20:00 30 12/19/18 20:00 97.7 76 25 109/72 (84) 98 12/19/18 19:25 76 20 98 Mechanical Ventilator 30 12/19/18 19:16 76 26 30 35 12/19/18 19:15 78 25 98 Mechanical Ventilator 30 12/19/18 18:00 105/42 Intake and Output 12/19/18 12/20/18 19:00 07:00 Intake Total 1087.848 ml 1062.111 ml Output Total 800 ml Balance 287.848 ml 1062.111 ml Free Water 150 ml 150 ml IV Total 442.848 ml 372.111 ml Tube Feeding 495 ml 540 ml Hemodialysis UF 800 ml # Bowel Movements 1 Laboratory Tests Test 12/20/18 03:30 12/20/18 13:50 White Blood Count 6.9 K/UL (4.8-10.8) Red Blood Count 3.41 M/UL (4.70-6.10) L Hemoglobin 8.5 G/DL (14.2-18.0) L Hematocrit 27.7 % (42.0-52.0) L Mean Corpuscular Volume 81 FL (80-99) Mean Corpuscular Hemoglobin 24.9 PG (27.0-31.0) L Mean Corpuscular Hemoglobin Concent 30.7 G/DL (32.0-36.0) L Red Cell Distribution Width 16.7 % (11.6-14.8) H Platelet Count 214 K/UL (150-450) Mean Platelet Volume 6.4 FL (6.5-10.1) L Neutrophils (%) (Auto) 72.5 % (45.0-75.0) Lymphocytes (%) (Auto) 17.0 % (20.0-45.0) L Monocytes (%) (Auto) 9.3 % (1.0-10.0) Eosinophils (%) (Auto) 0.0 % (0.0-3.0) Basophils (%) (Auto) 1.1 % (0.0-2.0) Activated Partial Thromboplast Time > 150 SEC (23-33) *H 39 SEC (23-33) H Objective HEAD AND NECK: No JVD. Tracheostomy intact LUNGS: Clear CARDIOVASCULAR: Irregular S1 and S2 with no gallop. Sternotomy is intact Pacemaker in the right subclavian ABDOMEN: Soft.PEG in place EXTREMITIES: 1+ pitting edema Shivam Sharpe MD December 20, 2018 17:27
[2018-12-20 20:00] VITALS: BP 156/71
[2018-12-21] VITALS: BP 145/50
[2018-12-21] MEDS: HYDROmorphone 2mg tab GT PRN ×3 (00:42→11:08)
[2018-12-21] MEDS: NovoLOG Insulin Flexpen SUBQ SCH ×4 (00:43→18:44)
[2018-12-21 04:00] VITALS: BP 121/60
[2018-12-21 05:28] LABS: ALANINE AMINOTRANSFERASE 8 U/L (12-78); ALBUMIN 1.8 G/DL (3.4-5.0); ALBUMIN/GLOBULIN RATIO 0.4 (1.0-2.7); ALKALINE PHOSPHATASE 132 U/L (46-116); ANION GAP 9 mmol/L (5-15); ASPARTATE AMINO TRANSFERASE 11 U/L (15-37); BILIRUBIN,TOTAL 0.3 MG/DL (0.2-1.0); BLOOD UREA NITROGEN 60 mg/dL (7-18); CALCIUM 8.6 MG/DL (8.5-10.1); CARBON DIOXIDE 29 MMOL/L (21-32); CHLORIDE 91 MMOL/L (98-107); CREATININE 6.3 MG/DL (0.55-1.30); PHOSPHORUS 5.1 MG/DL (2.5-4.9); POTASSIUM 4.1 MMOL/L (3.5-5.1); SODIUM 129 MMOL/L (136-145)
[2018-12-21] MEDS ORDERED: Heparin 5000 units/ml inj IV ONE (05:30)
[2018-12-21] MEDS: Heparin 25,000u/D5W 500ml 500 ML IV SCH ×2 (05:42→10:01)
[2018-12-21] MEDS: Nitroglycerin 2% oint pkt TOPIC SCH ×4 (06:00→18:00)
[2018-12-21 08:00] VITALS: BP 108/57
--- NOTE | 2018-12-21 09:04 | General Progress Note ---
Assessment/Plan Problem List: (1) Transplant ICD Codes: Z94.9 - Transplanted organ and tissue status, unspecified SNOMED: 086951528 (2) HTN (hypertension) ICD Codes: I10 - Essential (primary) hypertension SNOMED: 90313650 (3) Pacemaker ICD Codes: Z95.0 - Presence of cardiac pacemaker SNOMED: 610167303 (4) CHF (congestive heart failure) ICD Codes: I50.9 - Heart failure, unspecified SNOMED: 39259256 (5) DM (diabetes mellitus) ICD Codes: E11.9 - Type 2 diabetes mellitus without complications SNOMED: 48485387 (6) Foot ulcer ICD Codes: L97.509 - Non-pressure chronic ulcer of other part of unspecified foot with unspecified severity SNOMED: 39868889 Qualifiers: Qualified Codes: L97.511 - Non-pressure chronic ulcer of other part of right foot limited to breakdown of skin (7) ESRD (end stage renal disease) on dialysis ICD Codes: N18.6 - End stage renal disease; Z99.2 - Dependence on renal dialysis SNOMED: 383497940 Assessment/Plan: History of liver transplant, currently on Prograf C. difficile negative status post tracheostomy and PEG Infected G-tube site, fu ID recs would care cx >> GRAM NEGATIVE BACILLUS GT site care BID/prn topical abx around GT site per ID HD per nephro cont tacrolimus prn transfusions ppi zofran prn bowel regimen follow labs supportive care fu vascular surg Subjective ROS Limited/Unobtainable: No Allergies: Coded Allergies: CEPHALEXIN (Unverified Allergy, Unknown, 02/24/14) SULFAMETHOXAZOLE (Unverified Allergy, Unknown, 02/24/14) TRIMETHOPRIM (Unverified Allergy, Unknown, 02/24/14) Subjective he pulled his NGT again Objective Last 24 Hour Vital Signs Date Time Temp Pulse Resp B/P (MAP) Pulse Ox O2 Delivery O2 Flow Rate FiO2 12/21/18 08:57 66 23 30 12/21/18 08:00 Mechanical Ventilator 12/21/18 08:00 30 12/21/18 07:17 67 22 30 12/21/18 06:00 121/60 12/21/18 05:30 63 22 30 12/21/18 04:00 97.6 65 22 121/60 (80) 98 12/21/18 04:00 65 12/21/18 04:00 Mechanical Ventilator 12/21/18 04:00 30 12/21/18 03:00 64 21 30 12/21/18 01:50 68 22 30 12/21/18 00:00 30 12/21/18 00:00 Mechanical Ventilator 12/21/18 00:00 97.5 67 25 145/50 (81) 99 12/20/18 22:52 72 24 30 12/20/18 21:08 70 156/71 12/20/18 21:06 70 23 30 12/20/18 20:00 98.2 70 20 156/71 (99) 99 12/20/18 20:00 73 12/20/18 20:00 Mechanical Ventilator 12/20/18 20:00 30 12/20/18 19:56 78 21 30 12/20/18 18:34 97.3 12/20/18 18:00 105/77 12/20/18 17:29 72 24 30 12/20/18 16:00 68 12/20/18 16:00 Mechanical Ventilator 12/20/18 16:00 30 12/20/18 16:00 97.3 70 25 105/77 (86) 99 12/20/18 14:48 69 23 30 12/20/18 13:33 139/86 12/20/18 12:56 63 16 30 12/20/18 12:00 97.0 72 24 139/86 (103) 99 12/20/18 12:00 71 12/20/18 12:00 30 12/20/18 12:00 Mechanical Ventilator 12/20/18 11:19 78 20 100 Mechanical Ventilator 30 12/20/18 11:09 70 23 100 Mechanical Ventilator 30 12/20/18 11:06 70 23 30 12/20/18 09:09 76 23 30 Intake and Output 12/20/18 12/21/18 19:00 07:00 Intake Total 939.696 ml 1045.045 ml Balance 939.696 ml 1045.045 ml Free Water 110 ml 140 ml IV Total 289.696 ml 410.045 ml Tube Feeding 540 ml 495 ml Laboratory Tests 12/20/18 13:50: Activated Partial Thromboplast Time 39H 12/20/18 21:15: Activated Partial Thromboplast Time 65H 12/21/18 04:00: Activated Partial Thromboplast Time 53H, Sodium Level 129L, Potassium Level 4.1 , Chloride Level 91L, Carbon Dioxide Level 29, Anion Gap 9, Blood Urea Nitrogen 60H, Creatinine 6.3H, Estimat Glomerular Filtration Rate 8.9, Glucose Level 159H , Calcium Level 8.6, Phosphorus Level 5.1H, Magnesium Level 2.1, Total Bilirubin 0.3, Aspartate Amino Transf (AST/SGOT) 11L, Alanine Aminotransferase ( ALT/SGPT) 8L, Alkaline Phosphatase 132H, Total Protein 6.1L, Albumin 1.8L, Globulin 4.3, Albumin/Globulin Ratio 0.4L Height (Feet): 5 Height (Inches): 4.00 Weight (Pounds): 237 General Appearance: no apparent distress EENT: normal ENT inspection Neck: supple Cardiovascular: normal rate Respiratory/Chest: decreased breath sounds Abdomen: normal bowel sounds, non tender, soft Jorge Escalera MD December 21, 2018 09:04
[2018-12-21] MEDS: Midodrine 10mg tab GT SCH ×3 (09:52→18:00)
[2018-12-21] MEDS: Bacitracin Oint UD TOPIC SCH ×2 (09:53→20:22)
[2018-12-21] MEDS: Carvedilol 6.25mg Tab PEG SCH (09:54)
--- NOTE | 2018-12-21 10:46 | Nephrology Progress Note ---
Assessment/Plan Problem List: (1) ESRD (end stage renal disease) on dialysis (2) Foot ulcer (3) CHF (congestive heart failure) Assessment: Ej Fx 20 % (4) Pacemaker (5) Acute respiratory failure Assessment: with Co2 retention (6) G-tube site cellulitis Assessment ESRD with high K and SOB on admit Foot ulcer, likely infected High Troponin likely NSTMI Pacer , Pleural effusion s/p CABGS s/p Liver transplant Plan due dialysis today 12/21 BP low- improved on midodrine restart midodrine next HD 12/21 GT site infection, topical antibiotic Neuro note appreciated placement in process vascular esteban regarding heel ulcer per Dr Mcgill pain med change to dilaudid GT Now has tracheostomy and PEG Adjust BP meds add nitro paste TID Antibiotics by ID per cardio and ID Podiatry and Vascular surgical fu ? DC planning? Subjective ROS Limited/Unobtainable: Yes Objective Objective Last 24 Hour Vital Signs Date Time Temp Pulse Resp B/P (MAP) Pulse Ox O2 Delivery O2 Flow Rate FiO2 12/21/18 09:54 66 141/70 12/21/18 08:57 66 23 30 12/21/18 08:00 97.7 65 30 108/57 (74) 96 12/21/18 08:00 Mechanical Ventilator 12/21/18 08:00 67 12/21/18 08:00 30 12/21/18 07:17 67 22 30 12/21/18 06:00 121/60 12/21/18 05:30 63 22 30 12/21/18 04:00 97.6 65 22 121/60 (80) 98 12/21/18 04:00 65 12/21/18 04:00 Mechanical Ventilator 12/21/18 04:00 30 12/21/18 03:00 64 21 30 12/21/18 01:50 68 22 30 12/21/18 00:00 30 12/21/18 00:00 Mechanical Ventilator 12/21/18 00:00 97.5 67 25 145/50 (81) 99 12/20/18 22:52 72 24 30 12/20/18 21:08 70 156/71 12/20/18 21:06 70 23 30 12/20/18 20:00 98.2 70 20 156/71 (99) 99 12/20/18 20:00 73 12/20/18 20:00 Mechanical Ventilator 12/20/18 20:00 30 12/20/18 19:56 78 21 30 12/20/18 18:34 97.3 12/20/18 18:00 105/77 12/20/18 17:29 72 24 30 12/20/18 16:00 68 12/20/18 16:00 Mechanical Ventilator 12/20/18 16:00 30 12/20/18 16:00 97.3 70 25 105/77 (86) 99 12/20/18 14:48 69 23 30 12/20/18 13:33 139/86 12/20/18 12:56 63 16 30 12/20/18 12:00 97.0 72 24 139/86 (103) 99 12/20/18 12:00 71 12/20/18 12:00 30 12/20/18 12:00 Mechanical Ventilator 12/20/18 11:19 78 20 100 Mechanical Ventilator 30 12/20/18 11:09 70 23 100 Mechanical Ventilator 30 12/20/18 11:06 70 23 30 Intake and Output 12/20/18 12/21/18 19:00 07:00 Intake Total 939.696 ml 1090.045 ml Balance 939.696 ml 1090.045 ml Free Water 110 ml 140 ml IV Total 289.696 ml 410.045 ml Tube Feeding 540 ml 540 ml Laboratory Tests 12/20/18 13:50: Activated Partial Thromboplast Time 39H 12/20/18 21:15: Activated Partial Thromboplast Time 65H 12/21/18 04:00: Activated Partial Thromboplast Time 53H, Sodium Level 129L, Potassium Level 4.1 , Chloride Level 91L, Carbon Dioxide Level 29, Anion Gap 9, Blood Urea Nitrogen 60H, Creatinine 6.3H, Estimat Glomerular Filtration Rate 8.9, Glucose Level 159H , Calcium Level 8.6, Phosphorus Level 5.1H, Magnesium Level 2.1, Total Bilirubin 0.3, Aspartate Amino Transf (AST/SGOT) 11L, Alanine Aminotransferase ( ALT/SGPT) 8L, Alkaline Phosphatase 132H, Total Protein 6.1L, Albumin 1.8L, Globulin 4.3, Albumin/Globulin Ratio 0.4L Height (Feet): 5 Height (Inches): 4.00 Weight (Pounds): 237 EENT: other - trach-Vent Respiratory/Chest: decreased breath sounds Abdomen: distended Objective no other change Nakul Stevens MD December 21, 2018 10:46
--- NOTE | 2018-12-21 11:49 | Cardiac Electrophysiology PN ---
Assessment/Plan Assessment/Plan 1. Troponin leak due to renal failure. No CP or SOB 2. S/P CABG. Decrease Coreg to 3.125 bid, aspirin 162 and Lipitor 3. NSVT in setting of old SC and CABG. EF 55%. No Syncope 4. Congestive heart failure. On hemodialysis 5. S/P R. Medtronic dual chamber pacemaker with Nl Fx. 6. End-stage renal disease, on hemodialysis per Dr. Stevens S/P Fistulogram by Dr Salmeron 7. Multilevel AOD LE's with non-healing Right foot ulcer. Abdominal Angiogram per Dr Salmeron yesterday Antibiotic per Dr. Landis. FU by Dr. Huizar 8. History of liver transplant on Prograf 9. Respiratory failure, S/P tracheostomy. 10. Pleural effusion. FU Dr. Mendoza 11. Dysphagia, S/P PEG 12. Low BP on Midodrine 10 tid. XIOMARA RN Subjective Subjective Had HD today with 2 liters out. Awaiting placement Objective Last 24 Hour Vital Signs Date Time Temp Pulse Resp B/P (MAP) Pulse Ox O2 Delivery O2 Flow Rate FiO2 12/21/18 09:54 66 141/70 12/21/18 08:57 66 23 30 12/21/18 08:00 97.7 65 30 108/57 (74) 96 12/21/18 08:00 Mechanical Ventilator 12/21/18 08:00 67 12/21/18 08:00 30 12/21/18 07:17 67 22 30 12/21/18 06:00 121/60 12/21/18 05:30 63 22 30 12/21/18 04:00 97.6 65 22 121/60 (80) 98 12/21/18 04:00 65 12/21/18 04:00 Mechanical Ventilator 12/21/18 04:00 30 12/21/18 03:00 64 21 30 12/21/18 01:50 68 22 30 12/21/18 00:00 30 12/21/18 00:00 Mechanical Ventilator 12/21/18 00:00 97.5 67 25 145/50 (81) 99 12/20/18 22:52 72 24 30 12/20/18 21:08 70 156/71 12/20/18 21:06 70 23 30 12/20/18 20:00 98.2 70 20 156/71 (99) 99 5/5/19 20:00 73 12/20/18 20:00 Mechanical Ventilator 12/20/18 20:00 30 12/20/18 19:56 78 21 30 12/20/18 18:34 97.3 12/20/18 18:00 105/77 12/20/18 17:29 72 24 30 12/20/18 16:00 68 12/20/18 16:00 Mechanical Ventilator 12/20/18 16:00 30 12/20/18 16:00 97.3 70 25 105/77 (86) 99 12/20/18 14:48 69 23 30 12/20/18 13:33 139/86 12/20/18 12:56 63 16 30 12/20/18 12:00 97.0 72 24 139/86 (103) 99 12/20/18 12:00 71 12/20/18 12:00 30 12/20/18 12:00 Mechanical Ventilator Intake and Output 12/20/18 12/21/18 19:00 07:00 Intake Total 939.696 ml 1090.045 ml Balance 939.696 ml 1090.045 ml Free Water 110 ml 140 ml IV Total 289.696 ml 410.045 ml Tube Feeding 540 ml 540 ml Laboratory Tests Test 12/20/18 13:50 12/20/18 21:15 12/21/18 04:00 Activated Partial Thromboplast Time 39 SEC (23-33) H 65 SEC (23-33) H 53 SEC (23-33) H Sodium Level 129 MMOL/L (136-145) L Potassium Level 4.1 MMOL/L (3.5-5.1) Chloride Level 91 MMOL/L (98-107) L Carbon Dioxide Level 29 MMOL/L (21-32) Anion Gap 9 mmol/L (5-15) Blood Urea Nitrogen 60 mg/dL (7-18) H Creatinine 6.3 MG/DL (0.55-1.30) H Estimat Glomerular Filtration Rate 8.9 mL/min (>60) Glucose Level 159 MG/DL (74-106) H Calcium Level 8.6 MG/DL (8.5-10.1) Phosphorus Level 5.1 MG/DL (2.5-4.9) H Magnesium Level 2.1 MG/DL (1.8-2.4) Total Bilirubin 0.3 MG/DL (0.2-1.0) Aspartate Amino Transf (AST/SGOT) 11 U/L (15-37) L Alanine Aminotransferase (ALT/SGPT) 8 U/L (12-78) L Alkaline Phosphatase 132 U/L (46-116) H Total Protein 6.1 G/DL (6.4-8.2) L Albumin 1.8 G/DL (3.4-5.0) L Globulin 4.3 g/dL Albumin/Globulin Ratio 0.4 (1.0-2.7) L Objective HEAD AND NECK: No JVD. Tracheostomy intact LUNGS: Clear CARDIOVASCULAR: Irregular S1 and S2 with no gallop. Sternotomy is intact Pacemaker in the right subclavian ABDOMEN: Soft.PEG in place EXTREMITIES: 1+ pitting edema Shivam Sharpe MD December 21, 2018 11:49
--- NOTE | 2018-12-21 11:57 | Neurology Progress Note ---
Interim History Interim History Interim History Mr. Restrepo feels relatively well. The right upper extremity is less painful. However the right lower extremity is still very painful. Plans are to go back to surgery tomorrow for the right heel problem. He was unable to sleep well last night. He is breathing well. He feels generally weaker. The mind has not been completely clear. He has not walked yet. The right upper extremity is still swollen and painful. He denies any new neurologic symptoms. Review of Systems Neuro Review of Systems Benign. Objective Physical Exam Last Vital Signs Date Time Temp Pulse Resp B/P (MAP) Pulse Ox O2 Delivery O2 Flow Rate FiO2 12/21/18 09:54 66 141/70 12/21/18 08:57 23 30 12/21/18 08:00 97.7 96 12/21/18 08:00 Mechanical Ventilator 12/16/18 13:50 12.0 Laboratory Tests Test 12/20/18 13:50 12/20/18 21:15 12/21/18 04:00 Activated Partial Thromboplast Time 39 SEC (23-33) H 65 SEC (23-33) H 53 SEC (23-33) H Sodium Level 129 MMOL/L (136-145) L Potassium Level 4.1 MMOL/L (3.5-5.1) Chloride Level 91 MMOL/L (98-107) L Carbon Dioxide Level 29 MMOL/L (21-32) Anion Gap 9 mmol/L (5-15) Blood Urea Nitrogen 60 mg/dL (7-18) H Creatinine 6.3 MG/DL (0.55-1.30) H Estimat Glomerular Filtration Rate 8.9 mL/min (>60) Glucose Level 159 MG/DL (74-106) H Calcium Level 8.6 MG/DL (8.5-10.1) Phosphorus Level 5.1 MG/DL (2.5-4.9) H Magnesium Level 2.1 MG/DL (1.8-2.4) Total Bilirubin 0.3 MG/DL (0.2-1.0) Aspartate Amino Transf (AST/SGOT) 11 U/L (15-37) L Alanine Aminotransferase (ALT/SGPT) 8 U/L (12-78) L Alkaline Phosphatase 132 U/L (46-116) H Total Protein 6.1 G/DL (6.4-8.2) L Albumin 1.8 G/DL (3.4-5.0) L Globulin 4.3 g/dL Albumin/Globulin Ratio 0.4 (1.0-2.7) L Neurologic Exam Objective PHYSICAL EXAMINATION: GENERAL: He is a well-developed and well-nourished, pleasant gentleman, lying in bed connected to a ventilator via a tracheostomy. HEAD: Normocephalic and atraumatic. EENT: Examination benign. NECK: No neck rigidity was observed. He did have a tracheostomy. NEUROLOGICAL EXAMINATION: MENTAL STATUS EXAMINATION: He was awake and alert. He was fully oriented. He was able to remember presidents Trump and Obama. He was unable to cooperate for further mental status testing. SPEECH: Could not be tested, but he was able to mouth words relatively well. LANGUAGE: He was able to comprehend and express himself relatively well. CRANIAL NERVES EXAMINATION: II: The visual mckeon were intact to confrontation testing. III, IV & : The external ocular movements were full and the pupils 3 mm in diameter, equal, round, regular, and reactive sluggishly to light. V: He had normal facial sensations, and the temporales, masseters, and pterygoids functioned normally. VII: He had normal facial expressions and no facial asymmetry. VIII: Hearing was decreased bilaterally with worse hearing on the left side compared to the right. IX: The palate moved symmetrically on phonation. X: Could not be tested. XI: The sternocleidomastoids and trapezii functioned normally. XII: The tongue was in the midline without any fasciculations or atrophy. MOTOR SYSTEM: The tone was normal in all four extremities. Examination of muscle mass revealed generalized muscle wasting. Examination of power revealed G 5/5 power except for G 4+/5 power in the iliopsoas muscles bilaterally. Power in the right upper extremity was limited by pain. Power in the right foot was also limited by pain. SENSORY EXAMINATION: He had intact sensations to light touch. Other sensory modalities could not be tested adequately. REFLEXES: 1+ and bilaterally symmetrical at the biceps, triceps, brachioradialis , and knees, 0 at both ankles. The plantar responses were flexor bilaterally. COORDINATION: He performed well on [id number] testing. STANCE & GAIT: Were deferred. Impression/Recommendations Diagnostic Impression 1. Mr. Gregg Restrepo is a 68-year-old, right-handed, gentleman with past history of multiple medical problems including hypertension, diabetes mellitus, end-stage renal disease for which he is hemodialysis dependent, prior episodes of sepsis, and prior episodes of encephalopathy, who was admitted to [facility] on October 31, 2018. Following that, he has had a stormy hospital course including pneumonia and sepsis, right foot infection, respiratory failure for which he has needed tracheostomy and in addition he has exhibited an alteration in his mental state with some waxing and waning of his mental state. 2. He feels relatively well. The right upper extremity is less painful. However the right lower extremity is still very painful. Plans are to go back to surgery tomorrow for the right heel problem. He was unable to sleep well last night. He is breathing well. He feels generally weaker. The mind has not been completely clear. He has not walked yet. The right upper extremity is still swollen and painful. He denies any new neurologic symptoms. 3. On neurological examination, at this time, he is fully oriented, has mild problems with recent and remote memory, normal visuospatial function, minimally impaired higher cognitive function. He is able to comprehend and express himself well. He does have mild G 4+/5 weakness in the iliopsoas muscles bilaterally. Power in the right upper extremity was limited by pain. Power in the right foot was also limited by pain. He had globally diminished deep tendon reflexes with loss of ankle jerks, but no definite focal or lateralizing neurological findings. 4. His latest laboratory data on my initial evaluation revealed that he was anemic with a hemoglobin of 10.8 G. His last blood gas performed on 11/14/2018 revealed that he had a pCO2 elevated at 56.4 with a normal pO2 of 88.3 and normal pH of 7.37. His latest chemistry panel revealed that he was mildly hyponatremic with a sodium of 130, and had a chloride of 90. The BUN was elevated at 75, creatinine elevated at 7.4, glucose elevated at 156, Hemoglobin A1c elevated at 6.9%, Alkaline phosphatase elevated at 131, and ProBNP greater than 35,000. His last B12 level on 11/07/2018 was 723. His last folate on was 18.6. His last TSH on 12/06/2018 was 4.82, which is minimally elevated. 5. The CT scan of the brain performed on 11/10/2018 was benign for acute intracranial pathology. 6. The EEG done on 12/08/18 revealed left temporal dysfunction. 7. The patient's history and neurological examination are most consistent with mild multifactorial encephalopathy, which apparently waxes and wanes, but no definite focal neurological dysfunction. His encephalopathy is stable today. 8. He tells me that he had a brain bleed many years ago. I did review his imaging done at [facility] a few years ago and he had closed head injuries with subarachnoid and subdural blood in the past. Recommendations 1. Continue present management. 2. Continue to correct the patient's toxic metabolic imbalances. 3. Mobilize with PT/OT. 4. Consider getting ENT evaluation for worsening hearing. 5. Observe closely. Pantera Cool M.D., M.S.P.H. Pantera Cool MD December 21, 2018 11:57
[2018-12-21 12:00] VITALS: BP 125/52
--- NOTE | 2018-12-21 13:23 | General Progress Note ---
Assessment/Plan Assessment/Plan: #Right heel diabetic foot ulcer without osteomyelitis #PAD -seen by Podiatry and ID -s/p Vanco x 2 weeks during HD -s/p selective RLE angio with SFA/pop stenting -stop heparin drip and transition back to low dose Eliquis #Acute Resp hypercapnic failure s/p trach #Angioedema -continue trach care -Pulm following #End-stage renal disease, on dialysis -HD per Nephrology #Coronary artery disease -continue ASA, Coreg, atorva -cardiology following #Type 2 DM -ISS #Acute metabolic encephalopathy -continue supportive care -Neurology following #history of chronic HCV infection #history of liver transplant -continue Prograf -GI following #Dysphagia S/p PEG with PEG site cellulitis -s/p antibiotics per ID and GI -continue local wound care Subjective Date patient seen: December 21, 2018 Time patient seen: 07:20 ROS Limited/Unobtainable: Yes Cardiovascular: Reports: chest pain Respiratory: Reports: cough Gastrointestinal/Abdominal: Reports: abdomen distended, abdominal pain Allergies: Coded Allergies: CEPHALEXIN (Unverified Allergy, Unknown, 02/24/14) SULFAMETHOXAZOLE (Unverified Allergy, Unknown, 02/24/14) TRIMETHOPRIM (Unverified Allergy, Unknown, 02/24/14) Subjective Medicine follow up for acute resp failure, PAD, right heel infected DFU, ESRD. No new complaints. Objective Last 24 Hour Vital Signs Date Time Temp Pulse Resp B/P (MAP) Pulse Ox O2 Delivery O2 Flow Rate FiO2 12/21/18 12:42 69 28 30 12/21/18 12:39 69 23 30 12/21/18 12:30 125/52 12/21/18 12:00 97.7 67 22 125/52 (76) 98 12/21/18 12:00 Mechanical Ventilator 12/21/18 12:00 30 12/21/18 09:54 66 141/70 12/21/18 08:57 66 23 30 12/21/18 08:00 97.7 65 30 108/57 (74) 96 12/21/18 08:00 Mechanical Ventilator 12/21/18 08:00 67 12/21/18 08:00 30 12/21/18 07:17 67 22 30 12/21/18 06:00 121/60 12/21/18 05:30 63 22 30 12/21/18 04:00 97.6 65 22 121/60 (80) 98 12/21/18 04:00 65 12/21/18 04:00 Mechanical Ventilator 12/21/18 04:00 30 12/21/18 03:00 64 21 30 12/21/18 01:50 68 22 30 12/21/18 00:00 30 12/21/18 00:00 Mechanical Ventilator 12/21/18 00:00 97.5 67 25 145/50 (81) 99 12/20/18 22:52 72 24 30 12/20/18 21:08 70 156/71 12/20/18 21:06 70 23 30 12/20/18 20:00 98.2 70 20 156/71 (99) 99 12/20/18 20:00 73 12/20/18 20:00 Mechanical Ventilator 12/20/18 20:00 30 12/20/18 19:56 78 21 30 12/20/18 18:34 97.3 12/20/18 18:00 105/77 12/20/18 17:29 72 24 30 12/20/18 16:00 68 12/20/18 16:00 Mechanical Ventilator 12/20/18 16:00 30 12/20/18 16:00 97.3 70 25 105/77 (86) 99 12/20/18 14:48 69 23 30 12/20/18 13:33 139/86 Intake and Output 12/20/18 12/21/18 19:00 07:00 Intake Total 939.696 ml 1090.045 ml Balance 939.696 ml 1090.045 ml Free Water 110 ml 140 ml IV Total 289.696 ml 410.045 ml Tube Feeding 540 ml 540 ml Laboratory Tests 12/20/18 13:50: Activated Partial Thromboplast Time 39H 12/20/18 21:15: Activated Partial Thromboplast Time 65H 12/21/18 04:00: Activated Partial Thromboplast Time 53H, Sodium Level 129L, Potassium Level 4.1 , Chloride Level 91L, Carbon Dioxide Level 29, Anion Gap 9, Blood Urea Nitrogen 60H, Creatinine 6.3H, Estimat Glomerular Filtration Rate 8.9, Glucose Level 159H , Calcium Level 8.6, Phosphorus Level 5.1H, Magnesium Level 2.1, Total Bilirubin 0.3, Aspartate Amino Transf (AST/SGOT) 11L, Alanine Aminotransferase ( ALT/SGPT) 8L, Alkaline Phosphatase 132H, Total Protein 6.1L, Albumin 1.8L, Globulin 4.3, Albumin/Globulin Ratio 0.4L Height (Feet): 5 Height (Inches): 4.00 Weight (Pounds): 237 General Appearance: no apparent distress, alert Neck: normal alignment, supple Cardiovascular: normal rate, regular rhythm Respiratory/Chest: lungs clear, normal breath sounds, no respiratory distress Abdomen: non tender, soft Dennis Branham MD December 21, 2018 13:23
--- NOTE | 2018-12-21 13:40 | Anethesia Preoperative Eval ---
Anesthesia Pre-op PMH/ROS General Date of Evaluation: December 21, 2018 Time of Evaluation: 13:17 Anesthesiologist: Christian ASA Score: ASA 4 Mallampati Score Class I : Soft palate, uvula, fauces, pillars visible Class II: Soft palate, uvula, fauces visible Class III: Soft palate, base of uvula visible Class IV: Only hard plate visible Mallampati Classification: Class IV Surgeon: Faviola Diagnosis: PVD Surgical Procedure: R Leg Angiogram with Intervention Anesthesia History: none Family History: no anesthesia problems Allergies: Coded Allergies: CEPHALEXIN (Unverified Allergy, Unknown, 02/24/14) SULFAMETHOXAZOLE (Unverified Allergy, Unknown, 02/24/14) TRIMETHOPRIM (Unverified Allergy, Unknown, 02/24/14) Medications: see eMAR Patient NPO?: Yes NPO Date: December 17, 2018 NPO Time: 0000 Past Medical History Cardiovascular: Reports: HTN, CAD, CA - NSTEMI, arrhythmia - Pacemaker, other - CHF, EF 20-25%, PVD Pulmonary: Reports: other - Vent Failure, Trach, Mech Vent Gastrointestinal/Genitourinary: Reports: GERD, ESRD - Dialysis, other - G Tube 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: Reports: depression/anxiety Endocrine: Reports: DM Hematology/Immune: Reports: anemia Musculoskeletal/Integumentary: Reports: edema Other: obesity - BMI 42 PSxH Narrative: Multiple Vascular SX Anesthesia Pre-op Phys. Exam Physician Exam Last Vital Signs Date Time Temp Pulse Resp B/P (MAP) Pulse Ox O2 Delivery O2 Flow Rate FiO2 12/21/18 13:15 98 12/21/18 12:42 69 28 30 12/21/18 12:30 125/52 12/21/18 12:00 97.7 12/21/18 12:00 Mechanical Ventilator 12/16/18 13:50 12.0 Constitutional: NAD Neurologic: CN 2-12 intact Cardiovascular: RRR Respiratory: CTA Gastrointestinal: S/NT/ND Airway Exam Mallampati Score: Class IV MO: limited Neck: Trach ROM: limited Teeth: missing Anesthesia Pre-op A/P Labs Coagulation Test 12/20/18 13:50 12/20/18 21:15 12/21/18 04:00 Activated Partial Thromboplast Time 39 SEC (23-33) H 65 SEC (23-33) H 53 SEC (23-33) H Chemistry Test 12/21/18 04:00 Sodium Level 129 MMOL/L (136-145) L Potassium Level 4.1 MMOL/L (3.5-5.1) Chloride Level 91 MMOL/L (98-107) L Carbon Dioxide Level 29 MMOL/L (21-32) Anion Gap 9 mmol/L (5-15) Blood Urea Nitrogen 60 mg/dL (7-18) H Creatinine 6.3 MG/DL (0.55-1.30) H Estimat Glomerular Filtration Rate 8.9 mL/min (>60) Glucose Level 159 MG/DL (74-106) H Calcium Level 8.6 MG/DL (8.5-10.1) Phosphorus Level 5.1 MG/DL (2.5-4.9) H Magnesium Level 2.1 MG/DL (1.8-2.4) Total Bilirubin 0.3 MG/DL (0.2-1.0) Aspartate Amino Transf (AST/SGOT) 11 U/L (15-37) L Alanine Aminotransferase (ALT/SGPT) 8 U/L (12-78) L Alkaline Phosphatase 132 U/L (46-116) H Total Protein 6.1 G/DL (6.4-8.2) L Albumin 1.8 G/DL (3.4-5.0) L Globulin 4.3 g/dL Albumin/Globulin Ratio 0.4 (1.0-2.7) L Risk Assessment & Plan Assessment: ASA 4 Plan: GA Pre-Antibiotics Drug: Neel Villareal MD December 21, 2018 13:40
[2018-12-21 16:00] VITALS: BP 159/86
[2018-12-21] MEDS: HYDROmorphone 2mg tab ORAL PRN ×2 (16:15→20:22)
--- NOTE | 2018-12-21 16:37 | Infectious Diseases Prog Note ---
Assessment/Plan Problems: (1) G-tube site cellulitis Assessment & Plan: improved, culture from the G tube site grew pseudomonas , S /P ciprofloxacin for 7 days , continue local care as per GI. keep area clean and dry . may need tube change if continue to leak the feeding tube materials (2) Thrush, oral Assessment & Plan: continue local nystatin as needed , S/P micafungin for three weeks empirically (3) HCV antibody positive Assessment & Plan: no evidence of active infection, with undetectable viral load , suspect due to previous infection , cleared, S/P liver transplant . (4) Foot ulcer Assessment & Plan: in diabetic patient , with MRSA , S/P vancomycin treatment with HD for two weeks , had vascular eval with revascularization, S/P ulcer resection by freight conductor today . bone scan ruled out osteomyelitis of the heel . continue local wound care as per freight conductor . wound looks clean (5) DM (diabetes mellitus) Assessment & Plan: recommend tight glycemic control to keep blood glucose between 100-140 (6) CHF (congestive heart failure) Assessment & Plan: on HD , renal is following, monitor daily weight (7) Severe tongue swelling Assessment & Plan: improving , s/p tracheostomy to protect his airway since respiratory status worsened . now improving, pulmonary is following (8) Pleural effusion Assessment & Plan: recurrent on the right, with lung collapse , S/P thoracentesis X2 with removal of 1.5 cc of clear fluids. PREVIOUS culture were negative with negative cytology Assessment/Plan will continue to monitor patient on daily basis and make recommendations as necessary since he is high risk for recurrent infection Subjective Constitutional: Reports: no symptoms HEENT: Reports: no symptoms Respiratory: Reports: no symptoms Breasts: Reports: no symptoms Cardiovascular: Reports: no symptoms Gastrointestinal/Abdominal: Reports: no symptoms Genitourinary: Reports: no symptoms Neurologic: Reports: no symptoms Psychiatric: Reports: no symptoms Skin: Reports: ulcer Endocrine: Reports: no symptoms Hematologic: Reports: no symptoms Musculoskeletal: Reports: no symptoms Allergies: Coded Allergies: CEPHALEXIN (Unverified Allergy, Unknown, 02/24/14) SULFAMETHOXAZOLE (Unverified Allergy, Unknown, 02/24/14) TRIMETHOPRIM (Unverified Allergy, Unknown, 02/24/14) Subjective he was comfortable, lying in bed, no tongue swelling , awake and responsive, no fever or chills, no significant secretions , no SOB . has no thrush on his tongue Objective Vital Signs Last 24 Hour Vital Signs Date Time Temp Pulse Resp B/P (MAP) Pulse Ox O2 Delivery O2 Flow Rate FiO2 12/21/18 15:23 69 23 30 12/21/18 13:15 72 35 30 12/21/18 13:15 98 12/21/18 12:42 69 28 30 12/21/18 12:39 69 23 30 12/21/18 12:30 125/52 12/21/18 12:00 97.7 67 22 125/52 (76) 98 12/21/18 12:00 68 12/21/18 12:00 Mechanical Ventilator 12/21/18 12:00 30 12/21/18 09:54 66 141/70 12/21/18 08:57 66 23 30 12/21/18 08:00 97.7 65 30 108/57 (74) 96 12/21/18 08:00 Mechanical Ventilator 12/21/18 08:00 67 12/21/18 08:00 30 12/21/18 07:17 67 22 30 12/21/18 06:00 121/60 12/21/18 05:30 63 22 30 12/21/18 04:00 97.6 65 22 121/60 (80) 98 12/21/18 04:00 65 12/21/18 04:00 Mechanical Ventilator 12/21/18 04:00 30 12/21/18 03:00 64 21 30 12/21/18 01:50 68 22 30 12/21/18 00:00 30 12/21/18 00:00 Mechanical Ventilator 12/21/18 00:00 97.5 67 25 145/50 (81) 99 12/20/18 22:52 72 24 30 12/20/18 21:08 70 156/71 12/20/18 21:06 70 23 30 12/20/18 20:00 98.2 70 20 156/71 (99) 99 12/20/18 20:00 73 12/20/18 20:00 Mechanical Ventilator 12/20/18 20:00 30 12/20/18 19:56 78 21 30 12/20/18 18:34 97.3 12/20/18 18:00 105/77 12/20/18 17:29 72 24 30 Height (Feet): 5 Height (Inches): 4.00 Weight (Pounds): 237 General Appearance: WD/WN, no acute distress HEENT: normocephalic, atraumatic, anicteric, mucous membranes moist, PERRL, EOMI, pharynx normal, supple, no JVD Respiratory/Chest: chest wall non-tender, lungs clear, no accessory muscle use , respiratory distress, decreased breath sounds, crackles/rales Cardiovascular: normal peripheral pulses, normal rate, regular rhythm, no gallop/murmur, no JVD Abdomen: normal bowel sounds, soft, non tender, no organomegaly, non distended , no mass Extremities: no cyanosis, no clubbing Skin: no rash, no lesions, no ulcers 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: alert, responsive Lymphatic: no neck adenopathy, no groin adenopathy Musculoskeletal: normal muscle bulk, no effusion Laboratory Tests Test 12/20/18 21:15 12/21/18 04:00 Activated Partial Thromboplast Time 65 SEC (23-33) H 53 SEC (23-33) H Sodium Level 129 MMOL/L (136-145) L Potassium Level 4.1 MMOL/L (3.5-5.1) Chloride Level 91 MMOL/L (98-107) L Carbon Dioxide Level 29 MMOL/L (21-32) Anion Gap 9 mmol/L (5-15) Blood Urea Nitrogen 60 mg/dL (7-18) H Creatinine 6.3 MG/DL (0.55-1.30) H Estimat Glomerular Filtration Rate 8.9 mL/min (>60) Glucose Level 159 MG/DL (74-106) H Calcium Level 8.6 MG/DL (8.5-10.1) Phosphorus Level 5.1 MG/DL (2.5-4.9) H Magnesium Level 2.1 MG/DL (1.8-2.4) Total Bilirubin 0.3 MG/DL (0.2-1.0) Aspartate Amino Transf (AST/SGOT) 11 U/L (15-37) L Alanine Aminotransferase (ALT/SGPT) 8 U/L (12-78) L Alkaline Phosphatase 132 U/L (46-116) H Total Protein 6.1 G/DL (6.4-8.2) L Albumin 1.8 G/DL (3.4-5.0) L Globulin 4.3 g/dL Albumin/Globulin Ratio 0.4 (1.0-2.7) L Current Medications Medications (Trade) Dose Ordered Sig/Aleks Route PRN Reason Start Time Stop Time Status Last Admin Dose Admin Acetaminophen (Tylenol) 650 mg Q6H PRN GT Mild Pain/Temp > 100.5 12/21/18 16:00 01/20/19 15:59 Apixaban (Eliquis) 2.5 mg BID ORAL 12/21/18 18:00 01/20/19 17:59 Atorvastatin Calcium (Lipitor) 10 mg BEDTIME NG 12/01/18 21:00 12/21/18 20:59 12/20/18 21:09 Bacitracin (Bacitracin) 1 applic EVERY 12 HOURS TOPIC 12/11/18 21:00 01/06/19 17:59 12/21/18 09:53 Carvedilol (Coreg) 3.125 mg EVERY 12 HOURS GT 12/21/18 21:00 01/03/19 20:59 Clotrimazole (Lotrimin) 1 applic BID TOPIC 12/07/18 18:00 01/06/19 17:59 12/21/18 09:54 Collagenase (Santyl) 1 applic DAILY TOPIC 12/19/18 09:00 01/18/19 08:59 12/20/18 17:57 Dextrose (Dextrose 50%) 25 ml Q30M PRN IV Hypoglycemia 12/01/18 19:30 12/31/18 19:29 Dextrose (Dextrose 50%) 50 ml Q30M PRN IV Hypoglycemia 12/01/18 19:30 12/31/18 19:29 Escitalopram Oxalate (Lexapro) 10 mg DAILY GT 12/18/18 09:00 01/17/19 08:59 12/21/18 09:52 Hydralazine HCl (Apresoline) 10 mg Q6H PRN GT For High Blood Pressure 12/03/18 16:45 01/02/19 16:44 12/07/18 04:47 Hydromorphone HCl (Dilaudid) 1 mg Q4H PRN ORAL For Pain 12/21/18 16:00 12/28/18 15:59 12/21/18 16:15 Insulin Aspart (NovoLOG) EVERY 6 HOURS SUBQ 12/02/18 00:00 12/31/18 20:59 12/21/18 12:35 Lactulose (Cephulac) 20 gm THREE TIMES A DAY PRN GT Constipation 11/24/18 18:51 12/23/18 18:50 Midodrine (Pro-Amatine) 10 mg THREE TIMES A DAY GT 12/19/18 13:00 01/18/19 12:59 12/21/18 12:30 Mirtazapine (Remeron) 15 mg BEDTIME GT 12/21/18 21:00 01/20/19 20:59 Nicotine (Nicoderm) 1 patch Q24H TDERMAL 12/01/18 22:15 12/21/18 22:14 12/20/18 22:15 Nitroglycerin (Nitro-Bid) 1 inch TID@0600,1200,1800 TOPIC 12/07/18 12:00 01/06/19 11:59 12/21/18 12:30 Tacrolimus (Prograf) 2 mg SuTuThSa@0900,2100 ORAL 12/17/18 21:00 01/16/19 20:59 12/20/18 21:11 Francois Landis M.D. December 21, 2018 16:37
--- NOTE | 2018-12-21 17:07 | General Progress Note ---
Assessment/Plan Assessment/Plan: Assessment and Recs: # Coagulopathy likely secondary to decreased Vitk dependent cofactors (high INR , PT) --> monitor closely for any evidence of bleeding. Currently is on eliquis --> VIT K on prn basis sq can be administered ==> recently has improved inr 1.2-->1.1-->1.2 # Anemia of chronic disease due to underlying chronic medical issues, multifactorial as well as kidney disease --> Anemia workup has been ordered, rule out gi bleed, seen by gi, also reviewed w/u --> HAS BEEN reordered since refusing --> No evidence of hemolysis is noted, peripheral smear has been reviewed. --> Epogen can be consider if hgb downtrends --> Medications have been reviewed --> evaluate with Gi team prn --> transfuse if hgb is < 7 (will trend CBC daily) ==> hgb trend 11.2-->10.9-->10.8-->10.7-->10.2-->9.7-->9.7-->8.5 # Failure to thrive is likely related to poor overall status, poor functional status --> with multiple decub ulcerations that are noted, seen by id/surgery --> s/p trach as well --> cea is wnl # Acute respiratory failure is now s/p trach to vent --> as per surgery recs # Ground glass opacities present on imaging of lung --> with pleural effusions, s/p drainage at this time --> no evidence for malignancy is noted # Pleural effusion --> s/p thoracentesis # Hyperkalemia --> kayxelate has been given # Renal failure --> per renal recs, appreciated --> getting hd as per schedule # Altered level of consciousness ==> currently as per baseline # PAD off heparin gtt and now on eliquis --> per vasc and cards The timing of this note does not necessarily reflect the time of the patient was seen. Greatly appreciate consultation! Subjective HEENT: Denies: no symptoms, eye pain, blurred vision, tearing, double vision, ear pain, ear discharge, nose pain, nose congestion, throat pain, throat swelling, mouth pain, mouth swelling, other Respiratory: Denies: no symptoms, cough, orthopnea, shortness of breath, SOB with excertion, SOB at rest, sputum, stridor, wheezing, other Gastrointestinal/Abdominal: Denies: no symptoms, abdomen distended, abdominal pain, black stools, tarry stools, blood in stool, constipated, diarrhea, difficulty swallowing, nausea, poor appetite, poor fluid intake, rectal bleeding , vomiting, other Genitourinary: Denies: no symptoms, burning, discharge, frequency, flank pain, hematuria, incontinence, pain, urgency, other 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: Denies: no symptoms, anxiety, depressed, emotional problems, headache, numbness, paresthesia, pre-existing deficit, seizure, tingling, tremors, weakness, other Endocrine: Denies: no symptoms, excessive sweating, flushing, intolerance to cold, intolerance to heat, increased hunger, increased thirst, increased urine, unexplained weight gain, unexplained weight loss, other Allergies: Coded Allergies: CEPHALEXIN (Unverified Allergy, Unknown, 02/24/14) SULFAMETHOXAZOLE (Unverified Allergy, Unknown, 02/24/14) TRIMETHOPRIM (Unverified Allergy, Unknown, 02/24/14) Subjective 11/30: comfortable, on abx, no complaints, on t-piece 12/01: to have hd done potentially tomorrow, is more alert/awake 12/02: no major bleeding, hgb remains approx 11, no changes 12/03: no events, breathing mildly better, hgb is improved 12/04: on vent/trach, no major changes, sr ekg 12/10: small amount of secretions, on trach/vent, no issues otherwise 12/11: no major issues, no complaints, labs reviewed, no sig changes 12/13: no events to report, no fevers or chills, awaiting placement 12/14: no changes, no major events to report, no fevers or chills 12/15: pending placement, getting gt feeds and hd as per renal 12/16: labs have been reviewed, cbc noted, no changes 12/17: no events, no fevers, no cp, hgb remains stable 12/18: restarted on heparin gtt, seen by pulm, cards 12/20: continues to be on heparin gtt, no bleeding reported, no f/c 5/6: hd for today, no fevers or chils, off hep gtt on eliquis Objective Last 24 Hour Vital Signs Date Time Temp Pulse Resp B/P (MAP) Pulse Ox O2 Delivery O2 Flow Rate FiO2 12/21/18 15:23 69 23 30 12/21/18 13:15 72 35 30 12/21/18 13:15 98 12/21/18 12:42 69 28 30 12/21/18 12:39 69 23 30 12/21/18 12:30 125/52 12/21/18 12:00 97.7 67 22 125/52 (76) 98 12/21/18 12:00 68 12/21/18 12:00 Mechanical Ventilator 12/21/18 12:00 30 12/21/18 09:54 66 141/70 12/21/18 08:57 66 23 30 12/21/18 08:00 97.7 65 30 108/57 (74) 96 12/21/18 08:00 Mechanical Ventilator 12/21/18 08:00 67 12/21/18 08:00 30 12/21/18 07:17 67 22 30 12/21/18 06:00 121/60 12/21/18 05:30 63 22 30 12/21/18 04:00 97.6 65 22 121/60 (80) 98 12/21/18 04:00 65 12/21/18 04:00 Mechanical Ventilator 12/21/18 04:00 30 12/21/18 03:00 64 21 30 12/21/18 01:50 68 22 30 12/21/18 00:00 30 12/21/18 00:00 Mechanical Ventilator 12/21/18 00:00 97.5 67 25 145/50 (81) 99 12/20/18 22:52 72 24 30 12/20/18 21:08 70 156/71 12/20/18 21:06 70 23 30 12/20/18 20:00 98.2 70 20 156/71 (99) 99 12/20/18 20:00 73 12/20/18 20:00 Mechanical Ventilator 12/20/18 20:00 30 12/20/18 19:56 78 21 30 12/20/18 18:34 97.3 12/20/18 18:00 105/77 12/20/18 17:29 72 24 30 Intake and Output 12/20/18 12/21/18 19:00 07:00 Intake Total 939.696 ml 1090.045 ml Balance 939.696 ml 1090.045 ml Free Water 110 ml 140 ml IV Total 289.696 ml 410.045 ml Tube Feeding 540 ml 540 ml Laboratory Tests 12/20/18 21:15: Activated Partial Thromboplast Time 65H 12/21/18 04:00: Activated Partial Thromboplast Time 53H, Sodium Level 129L, Potassium Level 4.1 , Chloride Level 91L, Carbon Dioxide Level 29, Anion Gap 9, Blood Urea Nitrogen 60H, Creatinine 6.3H, Estimat Glomerular Filtration Rate 8.9, Glucose Level 159H , Calcium Level 8.6, Phosphorus Level 5.1H, Magnesium Level 2.1, Total Bilirubin 0.3, Aspartate Amino Transf (AST/SGOT) 11L, Alanine Aminotransferase ( ALT/SGPT) 8L, Alkaline Phosphatase 132H, Total Protein 6.1L, Albumin 1.8L, Globulin 4.3, Albumin/Globulin Ratio 0.4L Height (Feet): 5 Height (Inches): 4.00 Weight (Pounds): 237 Objective PE General Appearance: mild distress, moderate distress Lines, tubes and drains: peripheral HEENT: EOMI, thrush, tonsils swollen ++trach Neck: normal inspection Respiratory/Chest: decreased breath sounds, accessory muscle use Cardiovascular/Chest: tachycardia Abdomen: soft, no organomegaly, no mass, ++ peg Extremities: other Skin Exam: warm/dry, rash Neurologic: alert, responsive Zacarias Khoury MD December 21, 2018 17:07
--- NOTE | 2018-12-21 18:15 | Operative Note - Dictated ---
DATE OF OPERATION: 12/18/2018 PREOPERATIVE DIAGNOSES: 1. Right arm edema. 2. Nonfunctioning dialysis arteriovenous fistula in the right upper extremity. 3. End-stage renal disease. POSTOPERATIVE DIAGNOSES: 1. Right arm edema. 2. Nonfunctioning dialysis arteriovenous fistula in the right upper extremity. 3. End-stage renal disease. FINDINGS: 1. Right arm edema. 2. Nonfunctioning dialysis arteriovenous fistula in the right upper extremity. 3. End-stage renal disease. PROCEDURES: 1. Right arterialized cephalic vein dialysis arterial fistula access and introducer sheath placement in the venous outflow direction. 2. Catheterization via right arm AV fistula with the catheter tip in the right innominate vein. 3. Right arm dialysis fistulogram. 4. Selective superior vena cavogram. 5. Percutaneous transluminal balloon angioplasty (percutaneous transluminal angioplasty) of the AV fistula ([place] 4 mm x 4 cm). 6. Percutaneous transluminal angioplasty of the right subclavian vein ([place] 10 mm x 4 cm). 7. Percutaneous transluminal angioplasty of right innominate vein ([place] 10 mm x 4 cm). 8. Percutaneous transluminal angioplasty of the right cephalic vein ([place] 5 mm x 4 cm). 9. Primary surgical repair of the arterialized cephalic vein dialysis arteriovenous fistula access site. 10. Intraoperative ultrasound. 11. Digital subtraction angiography. 12. Supervision and interpretation of angiogram and intervention. SURGEON: Romelia Salmeron M.D. ANESTHESIA: MAC with local. INDICATION: The patient has a patent AV fistula in the right arm, but has edema and an nonhealing wound in the right forearm. The duplex scan showed possibility of obstruction and therefore, a fistulogram was recommended with possible intervention. INTRAOPERATIVE FINDINGS/INTERPRETATION OF THE RESULTS: The inflow from brachial artery anastomosis is widely patent. The outflow to the cephalic vein, which has a moderate stenosis just beyond the anastomosis with the proximal segment is widely patent. There is a patent large tributary of the cephalic vein in the distal upper arm. The cephalic arch is patent and drains into a patent subclavian vein, which is otherwise diffusely narrowed continuing to the innominate vein and superior vena cava, which is otherwise widely patent. There is a wires from a cardiac device in the right chest and the wires through the subclavian vein noted. The completion of angiogram after the intervention show widely patent flow in the treated segments with a brisk flow of contrast from the AV fistula flowing into the central veins on the completion angiogram. There was a good thrill present in the AV fistula at the end of the procedure. PROCEDURE IN DETAIL: With the patient in supine position, the right upper extremity was prepped and draped in usual sterile fashion. Skin was infiltrated with local anesthetic and the AV fistula accessed from the venous side near the arterial anastomosis with a micropuncture needle. Using a single wall puncture and modified Seldinger technique, a wire was passed in the venous outflow direction without difficulty and the needle was removed. Over the wire, a micropuncture introducer sheath and dilator placed coaxially into the vessel and the wire and dilator were removed ___ back bleeding from the sheath, which was flushed with heparinized saline and serial bolus of contrast were administered for digital subtraction images of the AV fistula inflow and outflow and the above findings were noted. Once the wire was placed across the stenosis to be treated, they were dilated with the balloon catheters listed above and a completion angiogram was then performed with satisfactory findings noted as described above. The sheath was therefore removed and the puncture sites repaired with the primary suture of 5-0 Prolene. Good hemostasis was obtained. Sterile dressings were placed and the patient was transferred out of the room in stable condition. He tolerated the procedure well. ESTIMATED BLOOD LOSS: Minimal. COMPLICATIONS: None. TOTAL FLUOROSCOPY TIME: 4 minutes 35 seconds. TOTAL CONTRAST: 60 mL. Romelia Salmeron M.D. DR: CHEPE JOB#: [id number] CC: Jamari Carter M.D.; Fax#: [phone] ROMELIA SALMERON M.D. ; FAX#: [phone]
[2018-12-21] MEDS: Eliquis 2.5mg tablet ORAL SCH (18:34)
[2018-12-21] MEDS: Acetaminophen 650mg/20.3ml GT PRN (18:39)
[2018-12-21 20:00] VITALS: BP 148/76
--- NOTE | 2018-12-21 21:00 | Operative Note - Dictated ---
DATE OF OPERATION: 12/16/2018 PREOPERATIVE DIAGNOSES: 1. 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 2. Nonhealing right heel ulcer. 3. Infected foot ulcer. 4. Rest pain. 5. Diabetes mellitus. 6. End-stage renal disease. 7. Respiratory failure. POSTOPERATIVE DIAGNOSES: 1. 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 2. Nonhealing right heel ulcer. 3. Infected foot ulcer. 4. Rest pain. 5. Diabetes mellitus. 6. End-stage renal disease. 7. Respiratory failure. FINDINGS: Below. PROCEDURES: 1. Left common femoral artery retrograde access and introducer sheath placement. 2. Catheterization via left common femoral artery with the catheter up and over the aortic bifurcation and the tip in the contralateral right tibial vessels. 3. Abdominal aortogram with bilateral iliofemoral angiogram. 4. Selective right leg runoff angiography. 5. Percutaneous transluminal balloon angioplasty (MARINE RIGGER) of the right common iliac artery ([place] 7 mm x 4 cm). 6. MARINE RIGGER of left common iliac artery ([place] 7 mm x 4 cm). 7. Attempted angioplasty of the right superficial femoral artery. 8. Injection of contrast for aortography. 9. Intraoperative ultrasound. 10. Digital subtraction angiography. 11. Supervision and interpretation of angiogram and intervention. SURGEON: Romelia Salmeron M.D. ANESTHESIA: MAC with local. MANAGER COSMETICS: Soco Landaverde CRNA. INDICATION: The patient has multiple medical problems and has had worsening of an ulcer in the right heel, which has progressed to an infection and causing the patient much pain. Duplex scan showed evidence of multilevel arterial occlusive disease and therefore, an angiogram and possible revascularization was recommended. INTRAOPERATIVE FINDINGS/INTERPRETATION OF THE RESULTS: The distal abdominal aorta as well as the bilateral common iliac, internal iliac, and external iliac arteries are patent, however, there is a moderate degree of diffuse stenosis noted in the common iliac arteries. The selected views of the right leg showed a severely calcified vessel and a patent common femoral and profunda femoris artery. Superficial femoral artery is patent proximally, but has an occlusion at the level of the Goyo's canal beyond which the vessel is patent and continued into a diseased popliteal artery, which continues below the knee where the anterior tibial artery originates and is patent, but severely calcified and diffusely diseased and gave rise to the dorsalis pedis artery. The tibioperoneal trunk has severe stenosis and the posterior tibial artery is occluded just beyond its origin and reconstitutes at the bifurcation at just beyond the ankle level into some plantar vessels. The peroneal artery is patent and ends in terminal branches, does reconstitute the posterior tibial branches and few collaterals in the foot. Post intervention, multiple attempts at crossing the occlusion in the superficial femoral artery was unsuccessful, however, the common iliac arteries were treated with balloon angioplasty and the completion angiogram showed widely patent common iliac arteries. Further attempts at revascularization of the right leg will be made possibly using antegrade and/or retrograde pedal access. These findings and plans will be discussed with the patient and his family as well as the team and further plans and recommendation will be made accordingly. PROCEDURE IN DETAIL: With the patient in supine position and after the groins were shaved, prepped and draped in usual sterile fashion. Skin was infiltrated with local anesthetic. The left common femoral artery was then accessed with a micropuncture needle using a single wall puncture modified Seldinger technique. A wire was advanced in a retrograde fashion into the vessel and the needle removed. Over a wire, a micropuncture introducer sheath and dilator were placed gradually into the vessel and the wire and dilator were removed with good arterial backbleeding noted from the sheath, which was flushed with heparinized saline and then exchanged over a wire for regular 5-[place] access sheath. A wire was advanced into the abdominal aorta under fluoroscopy and an angiographic catheter placed in the distal abdominal aorta for an aortogram and bilateral iliofemoral angiogram, and the above findings noted. The contralateral right iliofemoral vessels were then selectively entered and a wire advanced over which a catheter was then advanced to the external iliac artery where additional boluses of contrast were administered for digital subtraction images of the right leg runoff and the above findings were noted. The patient was given a bolus of intravenous heparin and the PTT was monitored for adequate anticoagulation. The sheath was exchanged for a long 6-[place] sheath over an Amplatz wire and then different wires and catheters were used to attempt crossing of the occlusion of the right superficial femoral artery including various 0.018 and 0.035 fiberfill and regular wires and crossing catheters. The catheter position was subintimal through the occlusion and therefore, it was decided to abandon this approach for the purpose of the superficial femoral artery lesion, however, the iliac stenoses were treated after the sheath was pulled back allowing the balloon catheter to be positioned, first in the right common iliac artery and then left common iliac artery ensuring low dilation was performed near the origins. After balloon angioplasty in a standard fashion was completed, a completion angiogram was performed and above findings confirmed. Once PTT had returned to the normal range, the sheath was removed and manual compression was maintained for hemostasis. A pressure dressing was applied. The patient tolerated the procedure well and was transferred to PACU in stable condition. ESTIMATED BLOOD LOSS: Minimal. COMPLICATIONS: None. TOTAL FLUOROSCOPY TIME: 29.1 minutes. TOTAL CONTRAST: 140 mL. Romelia Salmeron M.D. DR: Cristina JOB#: [id number] CC: Darius Carter M.D.; Fax#: [phone] ROMELIA SALMERON M.D. ; FAX#: [phone] MARIA VICTORIA
--- NOTE | 2018-12-21 22:00 | Progress Note ---
DATE: 12/21/2018 SUBJECTIVE: The patient continues to have anxiety throughout the day, hopeless, and believes that his medical condition is not improving. The patient is sleeping better. Overall improving. Continues to be forgetful and has difficulty writing. MENTAL STATUS EXAMINATION: The patient is alert and oriented times self, place, and situation he is in. Mood is dysphoric. Affect is constricted. Congruent with mood. Thought process is concrete. Thought content, no suicidal or homicidal ideation. ASSESSMENT: 1. Anxiety disorder. 2. Depression. PLAN: 1. We will continue the Remeron. 2. Continue the antidepressant during the day. 3. Provide the patient with reality orientation and supportive therapy. Jeffrey Lala M.D. DR: LINDA JOB#: [id number] CC:
[2018-12-22] VITALS (13 sets, daily range): BP systolic 95–159; BP diastolic 28–89
[2018-12-22] MEDS: HYDROmorphone 2mg tab ORAL PRN ×3 (00:37→17:30)
--- NOTE | 2018-12-22 01:30 | Operative Note - Dictated ---
DATE OF OPERATION: 12/17/2018 PREOPERATIVE DIAGNOSES: 1. 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 2. Nonhealing infected ulcer of the right heel. 3. End-stage renal disease. 4. Respiratory failure. POSTOPERATIVE DIAGNOSES: 1. 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 2. Nonhealing infected ulcer of the right heel. 3. End-stage renal disease. 4. Respiratory failure. FINDINGS: Below. PROCEDURES: 1. Right common femoral artery antegrade access and introducer sheath placement. 2. Right anterior tibial access and retrograde introducer sheath placement. 3. Catheterization via right common femoral artery with catheter tip in the right dorsalis pedis artery. 4. Catheterization via right anterior tibial artery with the catheter tip in the right common femoral artery. 5. Selective right leg runoff angiography. 6. Percutaneous placement of a stent in the right superficial femoral and popliteal artery (6 mm x 12 cm). 7. Percutaneous transluminal balloon angioplasty (MARKETING DEVELOPER) of the right superficial femoral artery (Central 5 mm x 4 cm). 8. MARKETING DEVELOPER of the right popliteal artery (Central 4 mm x 4 cm). 9. Intra-arterial thrombolysis with tPA. 10. Intra-arterial injection of nitroglycerin. 11. Intraoperative ultrasound. 12. Digital subtraction angiography. 13. Supervision and interpretation of angiogram and intervention. 14. Complex intervention (cath-22) due to the multiple severely calcified and occluded vessels in patient with multiple comorbidities. SURGEON: Gee Salmeron M.D. ANESTHESIA: General. ANESTHESIOLOGIST: Neel Gonzales M.D. INDICATIONS: The patient has a nonhealing infected ulcer in the right foot and an attempt for revascularization was made through the left common femoral access, but the occluded and superficial femoral artery could not be crossed successfully. The iliac vessels were treated and further intervention was planned for subsequent infection. INTRAOPERATIVE FINDINGS/INTERPRETATION OF THE RESULTS: The selective angiogram of the right leg is described in detail on the previous report and remain unchanged. The patient was given a bolus of intravenous heparin and the PTT was marked for coagulation. The attempt at crossing the superficial femoral artery occlusion was unsuccessful and retrograde access distally through the anterior tibial artery was used to cross the lesion as described below and further intervention was performed and a completion angiogram was performed showing successful revascularization of the superficial femoral artery with no residual stenosis. The tibial vessels remained untreated to be addressed in subsequent fashion and the patient will be continued on heparin in the meantime. PROCEDURE IN DETAIL: With the patient in supine position and after the groins were prepped and draped in usual sterile fashion, the skin was infiltrated with local anesthetic and the right common femoral artery was accessed with a micropuncture needle using a single wall puncture modified Seldinger technique. A wire was advanced in the antegrade fashion into the and the needle removed. Over the wire, a micropuncture introducer sheath was placed coaxially into the vessel and the wire and dilator removed with good . The sheath was flushed with heparinized saline and then replaced over a wire for a regular 5-Portuguese sheath. An attempt was made to cross the occluded superficial femoral artery with different wires and catheter, but these were unsuccessful and therefore, it was decided to approach in a retrograde fashion and for this preference, the right dorsalis pedis artery was first attempted, but was unsuccessful and then more proximally. The anterior tibial artery was successfully accessed with a micropuncture needle using ultrasound guidance and using a similar technique as above, the introducer sheath was placed into the vessel and then a 0.018 wire was used to successfully cross the occluded superficial femoral artery lesion with the wire with the help of a support catheter. The wire was then retrieved through the femoral access with a snare in a standard fashion and the end of the wire was brought out of the femoral sheath and a catheter was placed over the wire down to the anterior tibial artery and then the wire was replaced with a 0.0140 wire and then subsequently exchanged for a 0.035 wire for the intervention portion of the procedure. The superficial femoral artery occlusion was first pre-dilated with a balloon catheter and then a stent was placed in a standard fashion and then postdilated balloon catheter as listed above. The completion of angiogram appears satisfactory as described above. The sheath in the anterior tibial artery was removed and manual compression maintained for hemostasis. There appeared to be an occlusion in the anterior tibial artery, which was treated with thrombolysis with tPA as well as nitroglycerin directly injected into the anterior tibial artery, and the patient will be continued on heparin IV and monitor closely in with plans to return for further intervention of the tibial vessels. The femoral sheath was also removed once the PTT had returned to a normal range and manual compression was maintained for hemostasis and pressure dressing applied. The patient tolerated procedure well, was transferred to the PACU in stable condition. ESTIMATED BLOOD LOSS: Minimal. COMPLICATIONS: None. TOTAL FLUOROSCOPY TIME: 28 minutes and 45 seconds. TOTAL CONTRAST: 95 mL. Gee Salmeron M.D. DR: URBANO JOB#: [id number] CC: Jamari Carter M.D.; Fax#: [phone] GEE SALMERON M.D. ; FAX#: [phone]
[2018-12-22] MEDS: NovoLOG Insulin Flexpen SUBQ SCH ×4 (05:05→17:42)
[2018-12-22 05:32] LABS: BASOPHILS % (AUTO) 0.4 % (0.0-2.0); HEMATOCRIT 28.5 % (42.0-52.0); LYMPHOCYTES % (AUTO) 16.1 % (20.0-45.0); MEAN CORPUSCULAR VOLUME 79 FL (80-99); MONOCYTES % (AUTO) 9.4 % (1.0-10.0); NEUTROPHILS % (AUTO) 74.1 % (45.0-75.0); PLATELET COUNT 230 K/UL (150-450); RED BLOOD COUNT 3.61 M/UL (4.70-6.10); RED CELL DISTRIBUTION WIDTH 16.3 % (11.6-14.8); WHITE BLOOD COUNT 7.7 K/UL (4.8-10.8)
[2018-12-22] MEDS: Nitroglycerin 2% oint pkt TOPIC SCH ×4 (05:44→17:32)
[2018-12-22 06:06] LABS: ALANINE AMINOTRANSFERASE 11 U/L (12-78); ALBUMIN/GLOBULIN RATIO 0.4 (1.0-2.7); ALKALINE PHOSPHATASE 144 U/L (46-116); ANION GAP 9 mmol/L (5-15); ASPARTATE AMINO TRANSFERASE 14 U/L (15-37); BILIRUBIN,TOTAL 0.3 MG/DL (0.2-1.0); BLOOD UREA NITROGEN 50 mg/dL (7-18); CALCIUM 8.8 MG/DL (8.5-10.1); CARBON DIOXIDE 30 MMOL/L (21-32); CHLORIDE 93 MMOL/L (98-107); CREATININE 5.8 MG/DL (0.55-1.30); POTASSIUM 4.1 MMOL/L (3.5-5.1); SODIUM 132 MMOL/L (136-145)
--- NOTE | 2018-12-22 07:57 | General Progress Note ---
Assessment/Plan Problem List: (1) Transplant ICD Codes: Z94.9 - Transplanted organ and tissue status, unspecified SNOMED: 199364493 (2) HTN (hypertension) ICD Codes: I10 - Essential (primary) hypertension SNOMED: 54594918 (3) Pacemaker ICD Codes: Z95.0 - Presence of cardiac pacemaker SNOMED: 142494531 (4) CHF (congestive heart failure) ICD Codes: I50.9 - Heart failure, unspecified SNOMED: 38927282 (5) DM (diabetes mellitus) ICD Codes: E11.9 - Type 2 diabetes mellitus without complications SNOMED: 72265123 (6) Foot ulcer ICD Codes: L97.509 - Non-pressure chronic ulcer of other part of unspecified foot with unspecified severity SNOMED: 57102581 Qualifiers: Qualified Codes: L97.511 - Non-pressure chronic ulcer of other part of right foot limited to breakdown of skin (7) ESRD (end stage renal disease) on dialysis ICD Codes: N18.6 - End stage renal disease; Z99.2 - Dependence on renal dialysis SNOMED: 514360455 Assessment/Plan: History of liver transplant, currently on Prograf C. difficile negative status post tracheostomy and PEG Infected G-tube site, fu ID recs would care cx >> GRAM NEGATIVE BACILLUS GT site care BID/prn topical abx around GT site per ID HD per nephro cont tacrolimus prn transfusions ppi zofran prn bowel regimen follow labs supportive care Subjective ROS Limited/Unobtainable: No Allergies: Coded Allergies: CEPHALEXIN (Unverified Allergy, Unknown, 02/24/14) SULFAMETHOXAZOLE (Unverified Allergy, Unknown, 02/24/14) TRIMETHOPRIM (Unverified Allergy, Unknown, 02/24/14) Subjective he pulled his NGT again Objective Last 24 Hour Vital Signs Date Time Temp Pulse Resp B/P (MAP) Pulse Ox O2 Delivery O2 Flow Rate FiO2 12/22/18 07:35 71 19 30 12/22/18 05:30 97.3 12/22/18 05:08 71 24 30 12/22/18 04:00 71 12/22/18 04:00 30 12/22/18 04:00 97.7 69 22 154/53 (86) 98 12/22/18 04:00 Mechanical Ventilator 12/22/18 03:26 67 23 30 12/22/18 01:20 72 22 30 12/22/18 00:00 97.7 64 25 159/77 (104) 98 12/22/18 00:00 69 12/22/18 00:00 Mechanical Ventilator 12/21/18 23:26 70 23 30 12/21/18 22:20 69 148/76 12/21/18 21:20 70 23 30 12/21/18 20:00 Mechanical Ventilator 12/21/18 20:00 30 12/21/18 20:00 97.7 69 19 148/76 (100) 97 12/21/18 20:00 71 12/21/18 19:35 69 22 30 12/21/18 18:00 78 24 30 12/21/18 18:00 159/86 12/21/18 16:00 30 12/21/18 16:00 97.3 69 24 159/86 (110) 98 12/21/18 16:00 Mechanical Ventilator 12/21/18 16:00 69 12/21/18 15:23 69 23 30 12/21/18 13:15 72 35 30 12/21/18 13:15 98 12/21/18 12:42 69 28 30 12/21/18 12:39 69 23 30 12/21/18 12:00 97.7 67 22 125/52 (76) 98 12/21/18 12:00 68 12/21/18 12:00 125/52 12/21/18 12:00 Mechanical Ventilator 12/21/18 12:00 30 12/21/18 09:54 66 141/70 12/21/18 08:57 66 23 30 12/21/18 08:00 97.7 65 30 108/57 (74) 96 12/21/18 08:00 Mechanical Ventilator 12/21/18 08:00 67 12/21/18 08:00 30 Intake and Output 12/21/18 12/22/18 18:59 06:59 Intake Total 986.030 ml 345 ml Output Total 2000 ml Balance -1013.970 ml 345 ml Free Water 200 ml IV Total 246.030 ml Tube Feeding 540 ml 225 ml Other 120 ml Hemodialysis UF 2000 ml # Bowel Movements 2 Laboratory Tests 12/22/18 03:30: White Blood Count 7.7, Red Blood Count 3.61L, Hemoglobin 9.0L, Hematocrit 28.5L , Mean Corpuscular Volume 79L, Mean Corpuscular Hemoglobin 25.0L, Mean Corpuscular Hemoglobin Concent 31.7L, Red Cell Distribution Width 16.3H, Platelet Count 230, Mean Platelet Volume 7.2, Neutrophils (%) (Auto) 74.1, Lymphocytes (%) (Auto) 16.1L, Monocytes (%) (Auto) 9.4, Eosinophils (%) (Auto) 0.0, Basophils (%) (Auto) 0.4, Sodium Level 132L, Potassium Level 4.1, Chloride Level 93L, Carbon Dioxide Level 30, Anion Gap 9, Blood Urea Nitrogen 50H, Creatinine 5.8H, Estimat Glomerular Filtration Rate 9.8, Glucose Level 122H, Calcium Level 8.8, Total Bilirubin 0.3, Aspartate Amino Transf (AST/SGOT) 14L, Alanine Aminotransferase (ALT/SGPT) 11L, Alkaline Phosphatase 144H, Total Protein 6.6, Albumin 2.0L, Globulin 4.6, Albumin/Globulin Ratio 0.4L Height (Feet): 5 Height (Inches): 4.00 Weight (Pounds): 244 General Appearance: no apparent distress EENT: normal ENT inspection Neck: supple Cardiovascular: normal rate Respiratory/Chest: decreased breath sounds Abdomen: normal bowel sounds, non tender, soft Extremities: non-tender Jorge Escalera MD December 22, 2018 07:57
[2018-12-22] MEDS: Eliquis 2.5mg tablet ORAL SCH ×2 (09:00→17:31)
[2018-12-22] MEDS: Midodrine 10mg tab GT SCH ×3 (09:00→17:32)
[2018-12-22] MEDS: Bacitracin Oint UD TOPIC SCH ×2 (09:00→21:16)
[2018-12-22] MEDS ORDERED: Lidocaine 1% Plain 30 ml INJ ONE ×3 (09:46→11:43)
[2018-12-22] MEDS ORDERED: Heparin 5000 units/ml inj ONE ×2 (09:46→09:47)
[2018-12-22] MEDS ORDERED: Heparin 1000 units/ml 1ml Vial ONE (09:46)
--- NOTE | 2018-12-22 09:48 | Pre-Procedure Note/Attestation ---
Pre-Procedure Note/Attestation Complete Prior to Procedure Procedure Narrative: aortogram with runoff; possible intervention Indications for Procedure Pre-Operative Diagnosis: PVD with rest pain and non-healing, infected foot ulcer Attestation I attest that I discussed the nature of the procedure; its benefits; risks and complications; and alternatives (and the risks and benefits of such alternatives ), prior to the procedure, with the patient (or the patient's legal field sales representative). I attest that, if there was a reasonable possibility of needing a blood transfusion, the patient (or the patient's legal field sales representative) was given the [facility] standardized written summary, pursuant to the Horacio Louis Blood Safety Act ([place] Health and Safety Code # 1645, as amended). I attest that I re-evaluated the patient just prior to the surgery and that there has been no change in the patient's H&P, except as documented below: Gee Salmeron MD December 22, 2018 09:48
[2018-12-22] MEDS ORDERED: fentaNYL 100 mcg/2 mL IV ONE (09:53)
[2018-12-22] MEDS ORDERED: Phenylephrine 10mg/ml Vial ONE (09:56)
[2018-12-22] MEDS ORDERED: Sterile Water Irrig 1000ml IRRIG ONE (10:00)
[2018-12-22] MEDS ORDERED: NS Irrig 1000ml ONE (10:00)
[2018-12-22] MEDS ORDERED: Propofol 1,000mg/ 100ml btl IV ONE (10:00)
[2018-12-22] MEDS ORDERED: LR 1000ml ONE (10:00)
--- NOTE | 2018-12-22 10:12 | Cardiac Electrophysiology PN ---
Assessment/Plan Assessment/Plan 1. Troponin leak due to renal failure. No CP or SOB 2. S/P CABG. Decrease Coreg to 3.125 bid, aspirin 162 and Lipitor 3. NSVT in setting of old PA and CABG. EF 55%. No Syncope 4. Congestive heart failure. On hemodialysis 5. S/P R. Medtronic dual chamber pacemaker with Nl Fx. 6. End-stage renal disease, on hemodialysis per Dr. Stevens S/P Fistulogram by Dr Salmeron 7. Multilevel AOD LE's with non-healing Right foot ulcer. Had Abdominal Angiogram per Dr Salmeron Antibiotic per Dr. Landis. FU by Dr. Huizar Scheduled for peripheral intervention by Dr Salmeron again today 8. History of liver transplant on Prograf 9. Respiratory failure, S/P tracheostomy. 10. Pleural effusion. FU Dr. Mendoza 11. Dysphagia, S/P PEG 12. Low BP , better on Midodrine 10 tid. XIOMARA RN Subjective Subjective Had HD yesterday with 2 liters out. NPO for peripheral intervention by Dr Salmeron today Objective Last 24 Hour Vital Signs Date Time Temp Pulse Resp B/P (MAP) Pulse Ox O2 Delivery O2 Flow Rate FiO2 12/22/18 09:42 77 24 30 12/22/18 08:00 30 12/22/18 08:00 Mechanical Ventilator 12/22/18 08:00 98.0 71 18 146/62 (90) 96 12/22/18 07:35 71 19 30 12/22/18 05:30 97.3 12/22/18 05:08 71 24 30 12/22/18 04:00 71 12/22/18 04:00 30 12/22/18 04:00 97.7 69 22 154/53 (86) 98 12/22/18 04:00 Mechanical Ventilator 12/22/18 03:26 67 23 30 12/22/18 01:20 72 22 30 12/22/18 00:00 97.7 64 25 159/77 (104) 98 12/22/18 00:00 69 12/22/18 00:00 Mechanical Ventilator 12/21/18 23:26 70 23 30 12/21/18 22:20 69 148/76 12/21/18 21:20 70 23 30 12/21/18 20:00 Mechanical Ventilator 12/21/18 20:00 30 12/21/18 20:00 97.7 69 19 148/76 (100) 97 12/21/18 20:00 71 12/21/18 19:35 69 22 30 12/21/18 18:00 78 24 30 12/21/18 18:00 159/86 12/21/18 16:00 30 12/21/18 16:00 97.3 69 24 159/86 (110) 98 12/21/18 16:00 Mechanical Ventilator 12/21/18 16:00 69 12/21/18 15:23 69 23 30 12/21/18 13:15 72 35 30 12/21/18 13:15 98 12/21/18 12:42 69 28 30 12/21/18 12:39 69 23 30 12/21/18 12:00 97.7 67 22 125/52 (76) 98 12/21/18 12:00 68 12/21/18 12:00 125/52 12/21/18 12:00 Mechanical Ventilator 12/21/18 12:00 30 Intake and Output 12/21/18 12/22/18 19:00 07:00 Intake Total 986.030 ml 300 ml Output Total 2000 ml Balance -1013.970 ml 300 ml Free Water 200 ml IV Total 246.030 ml Tube Feeding 540 ml 180 ml Other 120 ml Hemodialysis UF 2000 ml # Bowel Movements 2 Laboratory Tests Test 12/22/18 03:30 White Blood Count 7.7 K/UL (4.8-10.8) Red Blood Count 3.61 M/UL (4.70-6.10) L Hemoglobin 9.0 G/DL (14.2-18.0) L Hematocrit 28.5 % (42.0-52.0) L Mean Corpuscular Volume 79 FL (80-99) L Mean Corpuscular Hemoglobin 25.0 PG (27.0-31.0) L Mean Corpuscular Hemoglobin Concent 31.7 G/DL (32.0-36.0) L Red Cell Distribution Width 16.3 % (11.6-14.8) H Platelet Count 230 K/UL (150-450) Mean Platelet Volume 7.2 FL (6.5-10.1) Neutrophils (%) (Auto) 74.1 % (45.0-75.0) Lymphocytes (%) (Auto) 16.1 % (20.0-45.0) L Monocytes (%) (Auto) 9.4 % (1.0-10.0) Eosinophils (%) (Auto) 0.0 % (0.0-3.0) Basophils (%) (Auto) 0.4 % (0.0-2.0) Sodium Level 132 MMOL/L (136-145) L Potassium Level 4.1 MMOL/L (3.5-5.1) Chloride Level 93 MMOL/L (98-107) L Carbon Dioxide Level 30 MMOL/L (21-32) Anion Gap 9 mmol/L (5-15) Blood Urea Nitrogen 50 mg/dL (7-18) H Creatinine 5.8 MG/DL (0.55-1.30) H Estimat Glomerular Filtration Rate 9.8 mL/min (>60) Glucose Level 122 MG/DL (74-106) H Calcium Level 8.8 MG/DL (8.5-10.1) Total Bilirubin 0.3 MG/DL (0.2-1.0) Aspartate Amino Transf (AST/SGOT) 14 U/L (15-37) L Alanine Aminotransferase (ALT/SGPT) 11 U/L (12-78) L Alkaline Phosphatase 144 U/L (46-116) H Total Protein 6.6 G/DL (6.4-8.2) Albumin 2.0 G/DL (3.4-5.0) L Globulin 4.6 g/dL Albumin/Globulin Ratio 0.4 (1.0-2.7) L Objective HEAD AND NECK: No JVD. Tracheostomy intact LUNGS: Clear CARDIOVASCULAR: Irregular S1 and S2 with no gallop. Sternotomy is intact Pacemaker in the right subclavian ABDOMEN: Soft.PEG in place EXTREMITIES: 1+ pitting edema Shivam Sharpe MD December 22, 2018 10:12
[2018-12-22] MEDS ORDERED: NS 500ML IVPB ONE (10:44)
[2018-12-22] MEDS ORDERED: Heparin Sod 1000 units/ml 10ml ONE (10:49)
[2018-12-22] MEDS ORDERED: Nitroglycerin 50mg/250ml btl 250 ML IV SCH (11:45)
[2018-12-22] MEDS: Cathflo Alteplase 2mg Inj INJ SCH ×2 (12:00→12:08)
--- NOTE | 2018-12-22 12:39 | Immediate Post-Op Evaluation ---
Immediate Post-Op Evalulation Immediate Post-Op Evalulation Procedure: Right Leg Angiogram with Intervention Date of Evaluation: December 22, 2018 Time of Evaluation: 12:51 IV Fluids: 700 LR Blood Products: 0 Estimated Blood Loss: 50 Urinary Output: 0 Blood Pressure Systolic: 111 Blood Pressure Diastolic: 26 Pulse Rate: 71 Respiratory Rate: 15 - Mech Vent O2 Sat by Pulse Oximetry: 100 Temperature (Fahrenheit): 97.4 Pain Score (1-10): 2 Nausea: No Vomiting: No Patient Status: no response, patent, ventilated, none Hydration Status: adequate Dru Gram Ancef IV Given Within 1 Hr of Incision: Yes Time Given: 10:30 Neel Gonzales MD December 22, 2018 12:39
--- NOTE | 2018-12-22 12:41 | Nephrology Progress Note ---
Assessment/Plan Problem List: (1) ESRD (end stage renal disease) on dialysis (2) Foot ulcer (3) CHF (congestive heart failure) Assessment: Ej Fx 20 % (4) Pacemaker (5) Acute respiratory failure Assessment: with Co2 retention (6) G-tube site cellulitis Assessment ESRD with high K and SOB on admit Foot ulcer, likely infected High Troponin likely NSTMI Pacer , Pleural effusion s/p CABGS s/p Liver transplant Plan due dialysis today 12/23 BP low- improved on midodrine restart midodrine GT site infection, topical antibiotic Neuro note appreciated placement in process vascular esteban regarding heel ulcer per Dr Mcgill pain med change to dilaudid GT Now has tracheostomy and PEG Adjust BP meds add nitro paste TID Antibiotics by ID per cardio and ID Podiatry and Vascular surgical fu ? DC planning? Subjective ROS Limited/Unobtainable: No Objective Objective Last 24 Hour Vital Signs Date Time Temp Pulse Resp B/P (MAP) Pulse Ox O2 Delivery O2 Flow Rate FiO2 12/22/18 12:39 71 15 100 12/22/18 09:42 77 24 30 12/22/18 08:00 71 12/22/18 08:00 30 12/22/18 08:00 Mechanical Ventilator 12/22/18 08:00 98.0 71 18 146/62 (90) 96 12/22/18 07:35 71 19 30 12/22/18 05:30 97.3 12/22/18 05:08 71 24 30 12/22/18 04:00 71 12/22/18 04:00 30 12/22/18 04:00 97.7 69 22 154/53 (86) 98 12/22/18 04:00 Mechanical Ventilator 12/22/18 03:26 67 23 30 12/22/18 01:20 72 22 30 12/22/18 00:00 97.7 64 25 159/77 (104) 98 12/22/18 00:00 69 12/22/18 00:00 Mechanical Ventilator 12/21/18 23:26 70 23 30 12/21/18 22:20 69 148/76 12/21/18 21:20 70 23 30 12/21/18 20:00 Mechanical Ventilator 12/21/18 20:00 30 12/21/18 20:00 97.7 69 19 148/76 (100) 97 12/21/18 20:00 71 12/21/18 19:35 69 22 30 12/21/18 18:00 78 24 30 12/21/18 18:00 159/86 12/21/18 16:00 30 12/21/18 16:00 97.3 69 24 159/86 (110) 98 12/21/18 16:00 Mechanical Ventilator 12/21/18 16:00 69 12/21/18 15:23 69 23 30 12/21/18 13:15 72 35 30 12/21/18 13:15 98 12/21/18 12:42 69 28 30 Intake and Output 12/21/18 12/22/18 19:00 07:00 Intake Total 986.030 ml 300 ml Output Total 2000 ml Balance -1013.970 ml 300 ml Free Water 200 ml IV Total 246.030 ml Tube Feeding 540 ml 180 ml Other 120 ml Hemodialysis UF 2000 ml # Bowel Movements 2 Laboratory Tests 12/22/18 03:30: White Blood Count 7.7, Red Blood Count 3.61L, Hemoglobin 9.0L, Hematocrit 28.5L , Mean Corpuscular Volume 79L, Mean Corpuscular Hemoglobin 25.0L, Mean Corpuscular Hemoglobin Concent 31.7L, Red Cell Distribution Width 16.3H, Platelet Count 230, Mean Platelet Volume 7.2, Neutrophils (%) (Auto) 74.1, Lymphocytes (%) (Auto) 16.1L, Monocytes (%) (Auto) 9.4, Eosinophils (%) (Auto) 0.0, Basophils (%) (Auto) 0.4, Sodium Level 132L, Potassium Level 4.1, Chloride Level 93L, Carbon Dioxide Level 30, Anion Gap 9, Blood Urea Nitrogen 50H, Creatinine 5.8H, Estimat Glomerular Filtration Rate 9.8, Glucose Level 122H, Calcium Level 8.8, Total Bilirubin 0.3, Aspartate Amino Transf (AST/SGOT) 14L, Alanine Aminotransferase (ALT/SGPT) 11L, Alkaline Phosphatase 144H, Total Protein 6.6, Albumin 2.0L, Globulin 4.6, Albumin/Globulin Ratio 0.4L 12/22/18 11:10: Activated Partial Thromboplast Time 83H 12/22/18 11:45: Activated Partial Thromboplast Time 61H Height (Feet): 5 Height (Inches): 4.00 Weight (Pounds): 244 General Appearance: no apparent distress Cardiovascular: normal rate Respiratory/Chest: decreased breath sounds Abdomen: distended Objective no other change Nakul Stevens MD December 22, 2018 12:41
--- NOTE | 2018-12-22 13:00 | Brief Operative Note ---
Immediate Post Operative Note Operative Note Pre-op Diagnosis: PVD with rest pain and non-healing, infected foot ulcer Procedure: right leg angiogram and atherectomy, HISTOPATHOLOGY TECHNICIAN, intrart. thrombolysis, NTG Post-op Diagnosis: same as pre-op Findings: consistent w/pre-op dx studies Surgeon: Sea Salmeron Anesthesiologist: Christine Gonzales Anesthesia: general Specimen: none Complications: none Condition: stable Fluids: see anesth. record Estimated Blood Loss: minimal Drains: none Implant(s) used?: No Gee Salmeron MD December 22, 2018 13:00
--- NOTE | 2018-12-22 13:18 | General Progress Note ---
Assessment/Plan Assessment/Plan: Assessment and Recs: # Coagulopathy likely secondary to decreased Vitk dependent cofactors (high INR , PT) --> monitor closely for any evidence of bleeding. Currently is on eliquis --> VIT K on prn basis sq can be administered ==> recently has improved inr 1.2-->1.1-->1.2 # Anemia of chronic disease due to underlying chronic medical issues, multifactorial as well as kidney disease --> Anemia workup has been ordered, rule out gi bleed, seen by gi, also reviewed w/u --> HAS BEEN reordered since refusing --> No evidence of hemolysis is noted, peripheral smear has been reviewed. --> Epogen can be consider if hgb downtrends --> Medications have been reviewed --> evaluate with Gi team prn --> transfuse if hgb is < 7 (will trend CBC daily) ==> hgb trend 11.2-->10.9-->10.8-->10.7-->10.2-->9.7-->9.7-->8.5 # Failure to thrive is likely related to poor overall status, poor functional status --> with multiple decub ulcerations that are noted, seen by id/surgery --> s/p trach as well --> cea is wnl # Acute respiratory failure is now s/p trach to vent --> as per surgery recs # Ground glass opacities present on imaging of lung --> with pleural effusions, s/p drainage at this time --> no evidence for malignancy is noted # Pleural effusion --> s/p thoracentesis # Hyperkalemia --> kayxelate has been given # Renal failure --> per renal recs, appreciated --> getting hd as per schedule # Altered level of consciousness ==> currently as per baseline # PAD off heparin gtt and now on eliquis --> per vasc and cards --> 12/22 s/p right leg angiogram with intervention The timing of this note does not necessarily reflect the time of the patient was seen. Greatly appreciate consultation! Subjective Constitutional: Denies: no symptoms, chills, diaphoresis, fever, malaise, weakness, other HEENT: Denies: no symptoms, eye pain, blurred vision, tearing, double vision, ear pain, ear discharge, nose pain, nose congestion, throat pain, throat swelling, mouth pain, mouth swelling, other Cardiovascular: Denies: no symptoms, chest pain, edema, irregular heart rate, lightheadedness, palpitations, syncope, other Respiratory: Denies: no symptoms, cough, orthopnea, shortness of breath, SOB with excertion, SOB at rest, sputum, stridor, wheezing, other Gastrointestinal/Abdominal: Denies: no symptoms, abdomen distended, abdominal pain, black stools, tarry stools, blood in stool, constipated, diarrhea, difficulty swallowing, nausea, poor appetite, poor fluid intake, rectal bleeding , vomiting, other Genitourinary: Denies: no symptoms, burning, discharge, frequency, flank pain, hematuria, incontinence, pain, urgency, other 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: Denies: no symptoms, anxiety, depressed, emotional problems, headache, numbness, paresthesia, pre-existing deficit, seizure, tingling, tremors, weakness, other Endocrine: Denies: no symptoms, excessive sweating, flushing, intolerance to cold, intolerance to heat, increased hunger, increased thirst, increased urine, unexplained weight gain, unexplained weight loss, other Allergies: Coded Allergies: CEPHALEXIN (Unverified Allergy, Unknown, 02/24/14) SULFAMETHOXAZOLE (Unverified Allergy, Unknown, 02/24/14) TRIMETHOPRIM (Unverified Allergy, Unknown, 02/24/14) Subjective 11/30: comfortable, on abx, no complaints, on t-piece 12/01: to have hd done potentially tomorrow, is more alert/awake 12/02: no major bleeding, hgb remains approx 11, no changes 12/03: no events, breathing mildly better, hgb is improved 12/04: on vent/trach, no major changes, sr ekg 12/10: small amount of secretions, on trach/vent, no issues otherwise 12/11: no major issues, no complaints, labs reviewed, no sig changes 12/13: no events to report, no fevers or chills, awaiting placement 12/14: no changes, no major events to report, no fevers or chills 12/15: pending placement, getting gt feeds and hd as per renal 5/1: labs have been reviewed, cbc noted, no changes 12/17: no events, no fevers, no cp, hgb remains stable 12/18: restarted on heparin gtt, seen by pulcamelia, cards 12/20: continues to be on heparin gtt, no bleeding reported, no f/c 12/21: hd for today, no fevers or chils, off hep gtt on eliquis 12/22: to get hd tomorrow, today is s/p right leg angiogram with intervention Objective Last 24 Hour Vital Signs Date Time Temp Pulse Resp B/P (MAP) Pulse Ox O2 Delivery O2 Flow Rate FiO2 12/22/18 13:00 65 20 95/32 100 Mechanical Ventilator 100 12/22/18 12:55 66 20 102/34 100 Mechanical Ventilator 100 12/22/18 12:50 66 20 103/28 100 Mechanical Ventilator 100 12/22/18 12:45 67 20 111/32 100 Mechanical Ventilator 100 12/22/18 12:40 97.4 68 20 117/41 93 Mechanical Ventilator 30 12/22/18 12:39 71 15 100 12/22/18 09:42 77 24 30 12/22/18 08:00 71 12/22/18 08:00 30 12/22/18 08:00 Mechanical Ventilator 12/22/18 08:00 98.0 71 18 146/62 (90) 96 12/22/18 07:35 71 19 30 12/22/18 05:30 97.3 12/22/18 05:08 71 24 30 12/22/18 04:00 71 12/22/18 04:00 30 12/22/18 04:00 97.7 69 22 154/53 (86) 98 12/22/18 04:00 Mechanical Ventilator 12/22/18 03:26 67 23 30 12/22/18 01:20 72 22 30 12/22/18 00:00 97.7 64 25 159/77 (104) 98 12/22/18 00:00 69 12/22/18 00:00 Mechanical Ventilator 12/21/18 23:26 70 23 30 12/21/18 22:20 69 148/76 12/21/18 21:20 70 23 30 12/21/18 20:00 Mechanical Ventilator 12/21/18 20:00 30 12/21/18 20:00 97.7 69 19 148/76 (100) 97 12/21/18 20:00 71 12/21/18 19:35 69 22 30 12/21/18 18:00 78 24 30 12/21/18 18:00 159/86 12/21/18 16:00 30 12/21/18 16:00 97.3 69 24 159/86 (110) 98 12/21/18 16:00 Mechanical Ventilator 12/21/18 16:00 69 12/21/18 15:23 69 23 30 Intake and Output 12/21/18 12/22/18 19:00 07:00 Intake Total 986.030 ml 300 ml Output Total 2000 ml Balance -1013.970 ml 300 ml Free Water 200 ml IV Total 246.030 ml Tube Feeding 540 ml 180 ml Other 120 ml Hemodialysis UF 2000 ml # Bowel Movements 2 Laboratory Tests 12/22/18 03:30: White Blood Count 7.7, Red Blood Count 3.61L, Hemoglobin 9.0L, Hematocrit 28.5L , Mean Corpuscular Volume 79L, Mean Corpuscular Hemoglobin 25.0L, Mean Corpuscular Hemoglobin Concent 31.7L, Red Cell Distribution Width 16.3H, Platelet Count 230, Mean Platelet Volume 7.2, Neutrophils (%) (Auto) 74.1, Lymphocytes (%) (Auto) 16.1L, Monocytes (%) (Auto) 9.4, Eosinophils (%) (Auto) 0.0, Basophils (%) (Auto) 0.4, Sodium Level 132L, Potassium Level 4.1, Chloride Level 93L, Carbon Dioxide Level 30, Anion Gap 9, Blood Urea Nitrogen 50H, Creatinine 5.8H, Estimat Glomerular Filtration Rate 9.8, Glucose Level 122H, Calcium Level 8.8, Total Bilirubin 0.3, Aspartate Amino Transf (AST/SGOT) 14L, Alanine Aminotransferase (ALT/SGPT) 11L, Alkaline Phosphatase 144H, Total Protein 6.6, Albumin 2.0L, Globulin 4.6, Albumin/Globulin Ratio 0.4L 12/22/18 11:10: Activated Partial Thromboplast Time 83H 12/22/18 11:45: Activated Partial Thromboplast Time 61H Height (Feet): 5 Height (Inches): 4.00 Weight (Pounds): 244 Objective PE General Appearance: mild distress, moderate distress Lines, tubes and drains: peripheral HEENT: EOMI, thrush, tonsils swollen ++trach Neck: normal inspection Respiratory/Chest: decreased breath sounds, accessory muscle use Cardiovascular/Chest: tachycardia Abdomen: soft, no organomegaly, no mass, ++ peg Extremities: other Skin Exam: warm/dry, rash Neurologic: alert, responsive Zacarias Khoury MD December 22, 2018 13:18
--- NOTE | 2018-12-22 14:32 | Diagnostic Imaging Report ---
Indication: Fistulogram during thrombolysis of the arteriovenous graft Comparison: None Findings: Multiple digitally subtracted fluoroscopic images of the left arm obtained during the intraoperative procedure. Images show multiple balloon angioplasty procedures presumably of the clotted dialysis graft. The procedure was performed by Dr. Salmeron. IMPRESSION: Intraoperative imaging
--- NOTE | 2018-12-22 16:17 | Neurology Progress Note ---
Interim History Interim History Interim History Mr. Restrepo feels unwell. He recently got back from right foot surgery. He is in a lot of right foot pain now. The right upper extremity feels about the same. He was unable to sleep well last night. He is breathing well. He feels generally weaker. The mind has not been clear. The right upper extremity is still swollen but less painful. He denies any new neurologic symptoms. Review of Systems Neuro Review of Systems Benign. Objective Physical Exam Last Vital Signs Date Time Temp Pulse Resp B/P (MAP) Pulse Ox O2 Delivery O2 Flow Rate FiO2 12/22/18 14:55 75 18 30 12/22/18 13:45 Mechanical Ventilator 12/22/18 13:39 97.6 117/68 100 12/16/18 13:50 12.0 Laboratory Tests Test 12/22/18 03:30 12/22/18 11:10 12/22/18 11:45 White Blood Count 7.7 K/UL (4.8-10.8) Red Blood Count 3.61 M/UL (4.70-6.10) L Hemoglobin 9.0 G/DL (14.2-18.0) L Hematocrit 28.5 % (42.0-52.0) L Mean Corpuscular Volume 79 FL (80-99) L Mean Corpuscular Hemoglobin 25.0 PG (27.0-31.0) L Mean Corpuscular Hemoglobin Concent 31.7 G/DL (32.0-36.0) L Red Cell Distribution Width 16.3 % (11.6-14.8) H Platelet Count 230 K/UL (150-450) Mean Platelet Volume 7.2 FL (6.5-10.1) Neutrophils (%) (Auto) 74.1 % (45.0-75.0) Lymphocytes (%) (Auto) 16.1 % (20.0-45.0) L Monocytes (%) (Auto) 9.4 % (1.0-10.0) Eosinophils (%) (Auto) 0.0 % (0.0-3.0) Basophils (%) (Auto) 0.4 % (0.0-2.0) Sodium Level 132 MMOL/L (136-145) L Potassium Level 4.1 MMOL/L (3.5-5.1) Chloride Level 93 MMOL/L (98-107) L Carbon Dioxide Level 30 MMOL/L (21-32) Anion Gap 9 mmol/L (5-15) Blood Urea Nitrogen 50 mg/dL (7-18) H Creatinine 5.8 MG/DL (0.55-1.30) H Estimat Glomerular Filtration Rate 9.8 mL/min (>60) Glucose Level 122 MG/DL (74-106) H Calcium Level 8.8 MG/DL (8.5-10.1) Total Bilirubin 0.3 MG/DL (0.2-1.0) Aspartate Amino Transf (AST/SGOT) 14 U/L (15-37) L Alanine Aminotransferase (ALT/SGPT) 11 U/L (12-78) L Alkaline Phosphatase 144 U/L (46-116) H Total Protein 6.6 G/DL (6.4-8.2) Albumin 2.0 G/DL (3.4-5.0) L Globulin 4.6 g/dL Albumin/Globulin Ratio 0.4 (1.0-2.7) L Activated Partial Thromboplast Time 83 SEC (23-33) H 61 SEC (23-33) H Neurologic Exam Objective PHYSICAL EXAMINATION: GENERAL: He is a well-developed and well-nourished, pleasant gentleman, lying in bed connected to a ventilator via a tracheostomy. HEAD: Normocephalic and atraumatic. EENT: Examination benign. NECK: No neck rigidity was observed. He did have a tracheostomy. NEUROLOGICAL EXAMINATION: MENTAL STATUS EXAMINATION: He was awake but not completely alert. He was fully oriented. He was able to remember presidents Trump and Obama. He was unable to cooperate for further mental status testing. SPEECH: Could not be tested, but he was able to mouth words relatively well. LANGUAGE: He was able to comprehend and express himself relatively well. CRANIAL NERVES EXAMINATION: II: The visual mckeon were intact to confrontation testing. III, IV & : The external ocular movements were full and the pupils 3 mm in diameter, equal, round, regular, and reactive sluggishly to light. V: He had normal facial sensations, and the temporales, masseters, and pterygoids functioned normally. VII: He had normal facial expressions and no facial asymmetry. VIII: Hearing was decreased bilaterally with worse hearing on the left side compared to the right. IX: The palate moved symmetrically on phonation. X: Could not be tested. XI: The sternocleidomastoids and trapezii functioned normally. XII: The tongue was in the midline without any fasciculations or atrophy. MOTOR SYSTEM: The tone was normal in all four extremities. Examination of muscle mass revealed generalized muscle wasting. Examination of power revealed G 5/5 power except for G 4+/5 power in the iliopsoas muscles bilaterally. In addition the right ankle and toes were also significantly weak with G 2/5 power. Power in the right upper extremity was limited by pain. Power in the right foot was also limited by pain. SENSORY EXAMINATION: He had intact sensations to light touch. Other sensory modalities could not be tested adequately. REFLEXES: 1+ and bilaterally symmetrical at the biceps, triceps, brachioradialis , and knees, 0 at both ankles. The plantar responses were flexor bilaterally. COORDINATION: He performed well on [id number] testing. STANCE & GAIT: Were deferred. Impression/Recommendations Diagnostic Impression 1. Mr. Gregg Restrepo is a 68-year-old, right-handed, gentleman with past history of multiple medical problems including hypertension, diabetes mellitus, end-stage renal disease for which he is hemodialysis dependent, prior episodes of sepsis, and prior episodes of encephalopathy, who was admitted to [facility] on October 31, 2018. Following that, he has had a stormy hospital course including pneumonia and sepsis, right foot infection, respiratory failure for which he has needed tracheostomy and in addition he has exhibited an alteration in his mental state with some waxing and waning of his mental state. 2. He feels unwell. He recently got back from right foot surgery. He is in a lot of right foot pain now. The right upper extremity feels about the same. He was unable to sleep well last night. He is breathing well. He feels generally weaker. The mind has not been clear. The right upper extremity is still swollen but less painful. He denies any new neurologic symptoms. 3. On neurological examination, at this time, his cerebration is slow, he is fully oriented, has mild problems with recent and remote memory, normal visuospatial function, minimally impaired higher cognitive function. He is able to comprehend and express himself well. He does have mild G 4+/5 weakness in the iliopsoas muscles bilaterally. Power in the right upper extremity was limited by pain. Power in the right foot was also limited by pain in addition he has severe weakness in the right ankle and toes. He had globally diminished deep tendon reflexes with loss of ankle jerks, but no definite focal or lateralizing neurological findings. 4. His latest laboratory data on my initial evaluation revealed that he was anemic with a hemoglobin of 10.8 G. His last blood gas performed on 11/14/2018 revealed that he had a pCO2 elevated at 56.4 with a normal pO2 of 88.3 and normal pH of 7.37. His latest chemistry panel revealed that he was mildly hyponatremic with a sodium of 130, and had a chloride of 90. The BUN was elevated at 75, creatinine elevated at 7.4, glucose elevated at 156, Hemoglobin A1c elevated at 6.9%, Alkaline phosphatase elevated at 131, and ProBNP greater than 35,000. His last B12 level on 11/07/2018 was 723. His last folate on was 18.6. His last TSH on 12/06/2018 was 4.82, which is minimally elevated. 5. The CT scan of the brain performed on 11/10/2018 was benign for acute intracranial pathology. 6. The EEG done on 12/08/18 revealed left temporal dysfunction. 7. The patient's history and neurological examination are most consistent with mild multifactorial encephalopathy, which apparently waxes and wanes, but no definite focal neurological dysfunction. His encephalopathy is minimally worse today. 8. He tells me that he had a brain bleed many years ago. I did review his imaging done at [facility] a few years ago and he had closed head injuries with subarachnoid and subdural blood in the past. Recommendations 1. Continue present management. 2. Continue to correct the patient's toxic metabolic imbalances. 3. Mobilize with PT/OT. 4. Consider getting ENT evaluation for worsening hearing. 5. Observe closely. Pantera Cool M.D., M.S.P.H. Pantera Cool MD December 22, 2018 16:17
--- NOTE | 2018-12-22 16:59 | Infectious Diseases Prog Note ---
Assessment/Plan Problems: (1) G-tube site cellulitis Assessment & Plan: improved, culture from the G tube site grew pseudomonas , S /P ciprofloxacin for 7 days , continue local care as per GI. keep area clean and dry . may need tube change if continue to leak the feeding tube materials (2) Thrush, oral Assessment & Plan: continue local nystatin as needed , S/P micafungin for three weeks empirically (3) HCV antibody positive Assessment & Plan: no evidence of active infection, with undetectable viral load , suspect due to previous infection , cleared, S/P liver transplant . (4) Foot ulcer Assessment & Plan: in diabetic patient , with MRSA , S/P vancomycin treatment with HD for two weeks , had another vascular eval today with revascularization to the right leg , S/P ulcer resection by extruding machine operator today . bone scan ruled out osteomyelitis of the heel . continue local wound care as per extruding machine operator . (5) DM (diabetes mellitus) Assessment & Plan: recommend tight glycemic control to keep blood glucose between 100-140 (6) CHF (congestive heart failure) Assessment & Plan: on HD , renal is following, monitor daily weight (7) Severe tongue swelling Assessment & Plan: improving , s/p tracheostomy to protect his airway since respiratory status worsened . now improving, pulmonary is following (8) Pleural effusion Assessment & Plan: recurrent on the right, with lung collapse , S/P thoracentesis X2 with removal of 1.5 cc of clear fluids. PREVIOUS culture were negative with negative cytology Assessment/Plan will continue to monitor patient on daily basis and make recommendations as necessary since he is high risk for recurrent infection Subjective Constitutional: Reports: no symptoms HEENT: Reports: no symptoms Respiratory: Reports: no symptoms Breasts: Reports: no symptoms Cardiovascular: Reports: no symptoms Gastrointestinal/Abdominal: Reports: no symptoms Genitourinary: Reports: no symptoms Neurologic: Reports: no symptoms Psychiatric: Reports: no symptoms Skin: Reports: no symptoms Endocrine: Reports: no symptoms Hematologic: Reports: no symptoms Musculoskeletal: Reports: no symptoms Allergies: Coded Allergies: CEPHALEXIN (Unverified Allergy, Unknown, 02/24/14) SULFAMETHOXAZOLE (Unverified Allergy, Unknown, 02/24/14) TRIMETHOPRIM (Unverified Allergy, Unknown, 02/24/14) Subjective he was comfortable, lying in bed, a little lethargic from anaesthesia, no tongue swelling , awake and responsive, no fever or chills, no significant secretions , no SOB . has no thrush on his tongue Objective Vital Signs Last 24 Hour Vital Signs Date Time Temp Pulse Resp B/P (MAP) Pulse Ox O2 Delivery O2 Flow Rate FiO2 12/22/18 16:00 30 12/22/18 16:00 Mechanical Ventilator 12/22/18 15:14 65 12/22/18 14:55 75 18 30 12/22/18 13:50 70 20 30 12/22/18 13:45 100 12/22/18 13:45 30 12/22/18 13:45 Mechanical Ventilator 12/22/18 13:39 97.6 65 18 117/68 100 Mechanical Ventilator 100 12/22/18 13:25 64 16 120/72 100 Mechanical Ventilator 100 12/22/18 13:15 65 18 132/79 100 Mechanical Ventilator 100 12/22/18 13:00 65 20 95/32 100 Mechanical Ventilator 100 12/22/18 12:55 66 20 102/34 100 Mechanical Ventilator 100 12/22/18 12:50 66 20 103/28 100 Mechanical Ventilator 100 12/22/18 12:45 67 20 111/32 100 Mechanical Ventilator 100 12/22/18 12:41 100 12/22/18 12:40 97.4 68 20 117/41 93 Mechanical Ventilator 30 12/22/18 12:39 71 15 100 12/22/18 09:42 77 24 30 12/22/18 08:00 71 12/22/18 08:00 30 12/22/18 08:00 Mechanical Ventilator 12/22/18 08:00 98.0 71 18 146/62 (90) 96 12/22/18 07:35 71 19 30 12/22/18 05:30 97.3 12/22/18 05:08 71 24 30 12/22/18 04:00 71 12/22/18 04:00 30 12/22/18 04:00 97.7 69 22 154/53 (86) 98 12/22/18 04:00 Mechanical Ventilator 12/22/18 03:26 67 23 30 12/22/18 01:20 72 22 30 12/22/18 00:00 97.7 64 25 159/77 (104) 98 12/22/18 00:00 69 12/22/18 00:00 Mechanical Ventilator 12/21/18 23:26 70 23 30 12/21/18 22:20 69 148/76 12/21/18 21:20 70 23 30 12/21/18 20:00 Mechanical Ventilator 12/21/18 20:00 30 12/21/18 20:00 97.7 69 19 148/76 (100) 97 12/21/18 20:00 71 12/21/18 19:35 69 22 30 12/21/18 18:00 78 24 30 12/21/18 18:00 159/86 Height (Feet): 5 Height (Inches): 4.00 Weight (Pounds): 244 General Appearance: WD/WN, no acute distress HEENT: normocephalic, atraumatic, anicteric, mucous membranes moist, PERRL, EOMI, pharynx normal, supple, no JVD, status post trach Respiratory/Chest: chest wall non-tender, lungs clear, normal breath sounds, no respiratory distress, no accessory muscle use Cardiovascular: normal peripheral pulses, normal rate, regular rhythm, no gallop/murmur, no JVD Abdomen: normal bowel sounds, soft, non tender, no organomegaly, non distended , no mass, no scars Genitourinary: normal external genitalia Extremities: no cyanosis, no clubbing Skin: no rash, no lesions, no ulcers 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: alert, responsive Lymphatic: no neck adenopathy, no groin adenopathy Musculoskeletal: normal muscle bulk, no effusion Laboratory Tests Test 12/22/18 03:30 12/22/18 11:10 12/22/18 11:45 White Blood Count 7.7 K/UL (4.8-10.8) Red Blood Count 3.61 M/UL (4.70-6.10) L Hemoglobin 9.0 G/DL (14.2-18.0) L Hematocrit 28.5 % (42.0-52.0) L Mean Corpuscular Volume 79 FL (80-99) L Mean Corpuscular Hemoglobin 25.0 PG (27.0-31.0) L Mean Corpuscular Hemoglobin Concent 31.7 G/DL (32.0-36.0) L Red Cell Distribution Width 16.3 % (11.6-14.8) H Platelet Count 230 K/UL (150-450) Mean Platelet Volume 7.2 FL (6.5-10.1) Neutrophils (%) (Auto) 74.1 % (45.0-75.0) Lymphocytes (%) (Auto) 16.1 % (20.0-45.0) L Monocytes (%) (Auto) 9.4 % (1.0-10.0) Eosinophils (%) (Auto) 0.0 % (0.0-3.0) Basophils (%) (Auto) 0.4 % (0.0-2.0) Sodium Level 132 MMOL/L (136-145) L Potassium Level 4.1 MMOL/L (3.5-5.1) Chloride Level 93 MMOL/L (98-107) L Carbon Dioxide Level 30 MMOL/L (21-32) Anion Gap 9 mmol/L (5-15) Blood Urea Nitrogen 50 mg/dL (7-18) H Creatinine 5.8 MG/DL (0.55-1.30) H Estimat Glomerular Filtration Rate 9.8 mL/min (>60) Glucose Level 122 MG/DL (74-106) H Calcium Level 8.8 MG/DL (8.5-10.1) Total Bilirubin 0.3 MG/DL (0.2-1.0) Aspartate Amino Transf (AST/SGOT) 14 U/L (15-37) L Alanine Aminotransferase (ALT/SGPT) 11 U/L (12-78) L Alkaline Phosphatase 144 U/L (46-116) H Total Protein 6.6 G/DL (6.4-8.2) Albumin 2.0 G/DL (3.4-5.0) L Globulin 4.6 g/dL Albumin/Globulin Ratio 0.4 (1.0-2.7) L Activated Partial Thromboplast Time 83 SEC (23-33) H 61 SEC (23-33) H Current Medications Medications (Trade) Dose Ordered Sig/Aleks Route PRN Reason Start Time Stop Time Status Last Admin Dose Admin Acetaminophen (Tylenol) 650 mg Q6H PRN GT Mild Pain/Temp > 100.5 12/21/18 16:00 01/20/19 15:59 12/21/18 18:39 Apixaban (Eliquis) 2.5 mg BID ORAL 12/21/18 18:00 01/20/19 17:59 12/21/18 18:34 Bacitracin (Bacitracin) 1 applic EVERY 12 HOURS TOPIC 12/11/18 21:00 01/06/19 17:59 12/21/18 20:22 Carvedilol (Coreg) 3.125 mg EVERY 12 HOURS GT 12/21/18 21:00 01/03/19 20:59 12/21/18 22:20 Clotrimazole (Lotrimin) 1 applic BID TOPIC 12/07/18 18:00 01/06/19 17:59 12/21/18 18:33 Collagenase (Santyl) 1 applic DAILY TOPIC 12/19/18 09:00 01/18/19 08:59 12/20/18 17:57 Dextrose (Dextrose 50%) 25 ml Q30M PRN IV Hypoglycemia 12/01/18 19:30 12/31/18 19:29 Dextrose (Dextrose 50%) 50 ml Q30M PRN IV Hypoglycemia 12/01/18 19:30 12/31/18 19:29 Escitalopram Oxalate (Lexapro) 10 mg DAILY GT 12/18/18 09:00 01/17/19 08:59 12/21/18 09:52 Hydralazine HCl (Apresoline) 10 mg Q6H PRN GT For High Blood Pressure 12/03/18 16:45 01/02/19 16:44 12/07/18 04:47 Hydromorphone HCl (Dilaudid) 1 mg Q4H PRN ORAL pain 4-10 12/22/18 12:00 12/28/18 15:59 Insulin Aspart (NovoLOG) EVERY 6 HOURS SUBQ 12/02/18 00:00 12/31/18 20:59 12/21/18 18:44 Lactulose (Cephulac) 20 gm THREE TIMES A DAY PRN GT Constipation 11/24/18 18:51 12/23/18 18:50 Midodrine (Pro-Amatine) 10 mg THREE TIMES A DAY GT 12/19/18 13:00 01/18/19 12:59 12/21/18 12:30 Mirtazapine (Remeron) 15 mg BEDTIME GT 12/21/18 21:00 01/20/19 20:59 12/21/18 22:18 Nitroglycerin 250 ml @ 0 mls/hr Q24H IV 12/22/18 11:45 6/6/19 11:44 Nitroglycerin (Nitro-Bid) 1 inch TID@0600,1200,1800 TOPIC 12/07/18 12:00 01/06/19 11:59 12/20/18 13:33 Tacrolimus (Prograf) 2 mg SuTuThSa@0900,2100 ORAL 12/17/18 21:00 01/16/19 20:59 12/20/18 21:11 Francois Landis M.D. December 22, 2018 16:59
--- NOTE | 2018-12-22 17:24 | General Progress Note ---
Assessment/Plan Assessment/Plan: #Right heel diabetic foot ulcer without osteomyelitis #PAD -seen by Podiatry and ID -s/p Vanco x 2 weeks during HD -s/p selective RLE angio with SFA/pop stenting -continue Eliquis #Acute Resp hypercapnic failure s/p trach #Angioedema -continue trach care -Pulm following #End-stage renal disease, on dialysis -HD per Nephrology #Coronary artery disease -continue ASA, Coreg, atorva -cardiology following #Type 2 DM -ISS #Acute metabolic encephalopathy -continue supportive care -Neurology following #history of chronic HCV infection #history of liver transplant -continue Prograf -GI following #Dysphagia S/p PEG with PEG site cellulitis -s/p antibiotics per ID and GI -continue local wound care Subjective Date patient seen: December 22, 2018 Time patient seen: 16:00 ROS Limited/Unobtainable: Yes Allergies: Coded Allergies: CEPHALEXIN (Unverified Allergy, Unknown, 02/24/14) SULFAMETHOXAZOLE (Unverified Allergy, Unknown, 02/24/14) TRIMETHOPRIM (Unverified Allergy, Unknown, 02/24/14) Subjective Medicine follow up for acute resp failure, PAD, right heel infected DFU, ESRD. No new issues overnight. Objective Last 24 Hour Vital Signs Date Time Temp Pulse Resp B/P (MAP) Pulse Ox O2 Delivery O2 Flow Rate FiO2 12/22/18 16:00 30 12/22/18 16:00 Mechanical Ventilator 12/22/18 15:14 65 12/22/18 14:55 75 18 30 12/22/18 13:50 70 20 30 12/22/18 13:45 100 12/22/18 13:45 30 12/22/18 13:45 Mechanical Ventilator 12/22/18 13:39 97.6 65 18 117/68 100 Mechanical Ventilator 100 12/22/18 13:25 64 16 120/72 100 Mechanical Ventilator 100 12/22/18 13:15 65 18 132/79 100 Mechanical Ventilator 100 12/22/18 13:00 65 20 95/32 100 Mechanical Ventilator 100 12/22/18 12:55 66 20 102/34 100 Mechanical Ventilator 100 12/22/18 12:50 66 20 103/28 100 Mechanical Ventilator 100 12/22/18 12:45 67 20 111/32 100 Mechanical Ventilator 100 12/22/18 12:41 100 12/22/18 12:40 97.4 68 20 117/41 93 Mechanical Ventilator 30 12/22/18 12:39 71 15 100 12/22/18 09:42 77 24 30 12/22/18 08:00 71 12/22/18 08:00 30 12/22/18 08:00 Mechanical Ventilator 12/22/18 08:00 98.0 71 18 146/62 (90) 96 12/22/18 07:35 71 19 30 12/22/18 05:30 97.3 12/22/18 05:08 71 24 30 12/22/18 04:00 71 12/22/18 04:00 30 12/22/18 04:00 97.7 69 22 154/53 (86) 98 12/22/18 04:00 Mechanical Ventilator 12/22/18 03:26 67 23 30 12/22/18 01:20 72 22 30 12/22/18 00:00 97.7 64 25 159/77 (104) 98 12/22/18 00:00 69 12/22/18 00:00 Mechanical Ventilator 12/21/18 23:26 70 23 30 12/21/18 22:20 69 148/76 12/21/18 21:20 70 23 30 12/21/18 20:00 Mechanical Ventilator 12/21/18 20:00 30 12/21/18 20:00 97.7 69 19 148/76 (100) 97 12/21/18 20:00 71 12/21/18 19:35 69 22 30 12/21/18 18:00 78 24 30 12/21/18 18:00 159/86 Intake and Output 12/21/18 12/22/18 19:00 07:00 Intake Total 986.030 ml 300 ml Output Total 2000 ml Balance -1013.970 ml 300 ml Free Water 200 ml IV Total 246.030 ml Tube Feeding 540 ml 180 ml Other 120 ml Hemodialysis UF 2000 ml # Bowel Movements 2 Laboratory Tests 12/22/18 03:30: White Blood Count 7.7, Red Blood Count 3.61L, Hemoglobin 9.0L, Hematocrit 28.5L , Mean Corpuscular Volume 79L, Mean Corpuscular Hemoglobin 25.0L, Mean Corpuscular Hemoglobin Concent 31.7L, Red Cell Distribution Width 16.3H, Platelet Count 230, Mean Platelet Volume 7.2, Neutrophils (%) (Auto) 74.1, Lymphocytes (%) (Auto) 16.1L, Monocytes (%) (Auto) 9.4, Eosinophils (%) (Auto) 0.0, Basophils (%) (Auto) 0.4, Sodium Level 132L, Potassium Level 4.1, Chloride Level 93L, Carbon Dioxide Level 30, Anion Gap 9, Blood Urea Nitrogen 50H, Creatinine 5.8H, Estimat Glomerular Filtration Rate 9.8, Glucose Level 122H, Calcium Level 8.8, Total Bilirubin 0.3, Aspartate Amino Transf (AST/SGOT) 14L, Alanine Aminotransferase (ALT/SGPT) 11L, Alkaline Phosphatase 144H, Total Protein 6.6, Albumin 2.0L, Globulin 4.6, Albumin/Globulin Ratio 0.4L 12/22/18 11:10: Activated Partial Thromboplast Time 83H 12/22/18 11:45: Activated Partial Thromboplast Time 61H Height (Feet): 5 Height (Inches): 4.00 Weight (Pounds): 244 General Appearance: alert Neck: non-tender, normal alignment Cardiovascular: normal rate, regular rhythm Respiratory/Chest: lungs clear, normal breath sounds Abdomen: non tender, soft Dennis Branham MD December 22, 2018 17:23
--- NOTE | 2018-12-22 23:30 | Progress Note ---
DATE: 12/22/2018 PSYCHIATRIC PROGRESS NOTE: SUBJECTIVE: The patient continues to have difficulty sleeping at night. He is hard of hearing and attempts to sleep at night. The patient continues to have difficulty with anxiety. Presents with anxiety. MENTAL STATUS EXAMINATION: The patient is alert, oriented to time, self, place, and situation he is in. Mood is anxious. Affect is blunted, congruent with mood and appropriate. Thought process is concrete. Thought content, no suicidal or homicidal ideation. Memory is impaired. Insight and judgment is fair. ASSESSMENT: 1. Anxiety disorder. 2. Depression. 3. The patient lacks capacity to make decision. PLAN: 1. We will continue the Remeron. 2. Continue the citalopram. 3. Provide the patient with reality orientation and medication. Jeffrey Lala M.D. DR: BRITANY JOB#: [id number] CC:
[2018-12-23] VITALS: BP 142/72
[2018-12-23] MEDS: NovoLOG Insulin Flexpen SUBQ SCH ×4 (00:41→17:11)
[2018-12-23] MEDS: HYDROmorphone 2mg tab ORAL PRN ×4 (03:45→20:46)
[2018-12-23 04:00] VITALS: BP 159/73
[2018-12-23] MEDS: Nitroglycerin 2% oint pkt TOPIC SCH ×3 (05:50→17:11)
[2018-12-23 08:00] VITALS: BP 105/61
[2018-12-23] MEDS: Midodrine 10mg tab GT SCH ×3 (08:45→17:04)
[2018-12-23] MEDS: Bacitracin Oint UD TOPIC SCH ×2 (08:45→21:08)
[2018-12-23] MEDS: Eliquis 2.5mg tablet ORAL SCH ×2 (08:45→17:04)
--- NOTE | 2018-12-23 11:06 | Nephrology Progress Note ---
Assessment/Plan Problem List: (1) ESRD (end stage renal disease) on dialysis (2) Foot ulcer (3) CHF (congestive heart failure) Assessment: Ej Fx 20 % (4) Pacemaker (5) Acute respiratory failure Assessment: with Co2 retention (6) G-tube site cellulitis Assessment ESRD with high K and SOB on admit Foot ulcer, likely infected High Troponin likely NSTMI Pacer , Pleural effusion s/p CABGS s/p Liver transplant Plan due dialysis today 12/23 BP low- improved on midodrine restart midodrine GT site infection, topical antibiotic Neuro note appreciated placement in process vascular esteban regarding heel ulcer per Dr Mcgill pain med change to dilaudid GT Now has tracheostomy and PEG Adjust BP meds add nitro paste TID Antibiotics by ID per cardio and ID Podiatry and Vascular surgical fu ? DC planning? Subjective ROS Limited/Unobtainable: Yes Objective Objective Last 24 Hour Vital Signs Date Time Temp Pulse Resp B/P (MAP) Pulse Ox O2 Delivery O2 Flow Rate FiO2 12/23/18 09:24 67 17 30 12/23/18 08:44 65 105/61 12/23/18 08:00 98.3 66 21 105/61 (76) 96 12/23/18 08:00 65 12/23/18 08:00 30 12/23/18 08:00 Mechanical Ventilator 12/23/18 07:22 66 17 30 12/23/18 05:50 156/73 12/23/18 05:29 65 16 30 12/23/18 04:00 Mechanical Ventilator 12/23/18 04:00 30 12/23/18 04:00 98.5 70 22 159/73 (101) 98 12/23/18 03:18 70 19 30 12/23/18 03:12 69 12/23/18 01:30 69 20 30 12/23/18 01:00 73 12/23/18 00:00 97.0 68 21 142/72 (95) 99 12/23/18 00:00 Mechanical Ventilator 12/22/18 23:36 68 20 30 12/22/18 21:44 68 17 30 12/22/18 21:16 66 153/89 12/22/18 20:00 Mechanical Ventilator 12/22/18 20:00 30 12/22/18 20:00 65 12/22/18 20:00 96.8 66 18 153/89 (110) 96 12/22/18 19:04 65 18 30 12/22/18 17:32 117/68 12/22/18 16:00 30 12/22/18 16:00 98.0 18 133/72 (92) 100 12/22/18 16:00 Mechanical Ventilator 12/22/18 15:14 65 12/22/18 14:55 75 18 30 12/22/18 13:50 70 20 30 12/22/18 13:45 100 12/22/18 13:45 30 12/22/18 13:45 Mechanical Ventilator 12/22/18 13:39 97.6 65 18 117/68 100 Mechanical Ventilator 100 12/22/18 13:25 64 16 120/72 100 Mechanical Ventilator 100 12/22/18 13:15 65 18 132/79 100 Mechanical Ventilator 100 12/22/18 13:00 65 20 95/32 100 Mechanical Ventilator 100 12/22/18 12:55 66 20 102/34 100 Mechanical Ventilator 100 12/22/18 12:50 66 20 103/28 100 Mechanical Ventilator 100 12/22/18 12:45 67 20 111/32 100 Mechanical Ventilator 100 12/22/18 12:41 100 12/22/18 12:40 97.4 68 20 117/41 93 Mechanical Ventilator 30 12/22/18 12:39 71 15 100 Intake and Output 12/22/18 12/23/18 18:59 06:59 Intake Total 870 ml 700 ml Balance 870 ml 700 ml Free Water 100 ml IV Total 850 ml Tube Feeding 540 ml Other 20 ml 60 ml # Bowel Movements 2 Laboratory Tests 12/22/18 11:10: Activated Partial Thromboplast Time 83H 12/22/18 11:45: Activated Partial Thromboplast Time 61H Height (Feet): 5 Height (Inches): 4.00 Weight (Pounds): 245 General Appearance: no apparent distress EENT: other - Trach Cardiovascular: normal rate Respiratory/Chest: decreased breath sounds Abdomen: distended, other Extremities: other - right heel wound Objective no other change Nakul Stevens MD December 23, 2018 11:06
--- NOTE | 2018-12-23 11:20 | Cardiac Electrophysiology PN ---
Assessment/Plan Assessment/Plan 1. Troponin leak due to renal failure. No CP or SOB 2. S/P CABG. On Coreg 3.125 bid, aspirin 162 and Lipitor 3. NSVT in setting of old PA and CABG. EF 55%. No Syncope 4. Congestive heart failure. On hemodialysis 5. S/P R. Medtronic dual chamber pacemaker with Nl Fx. 6. End-stage renal disease, on hemodialysis per Dr. Stevens S/P Fistulogram by Dr Salmeron 7. Multilevel AOD LE's with non-healing Right foot ulcer. Had Abdominal Angiogram per Dr Salmeron Antibiotic per Dr. Landis. FU by Dr. Huizar S/P peripheral intervention by Dr Salmeron 12/22/18 8. History of liver transplant on Prograf 9. Respiratory failure, S/P tracheostomy. 10. Pleural effusion. FU Dr. Mendoza 11. Dysphagia, S/P PEG 12. Low BP , better on Midodrine 10 tid. XIOMARA RN Subjective Subjective Had peripheral intervention by Dr Salmeron yesterday. Comfortable sleeping. Objective Last 24 Hour Vital Signs Date Time Temp Pulse Resp B/P (MAP) Pulse Ox O2 Delivery O2 Flow Rate FiO2 12/23/18 09:24 67 17 30 12/23/18 08:44 65 105/61 12/23/18 08:00 98.3 66 21 105/61 (76) 96 12/23/18 08:00 65 12/23/18 08:00 30 12/23/18 08:00 Mechanical Ventilator 12/23/18 07:22 66 17 30 12/23/18 05:50 156/73 12/23/18 05:29 65 16 30 12/23/18 04:00 Mechanical Ventilator 12/23/18 04:00 30 12/23/18 04:00 98.5 70 22 159/73 (101) 98 12/23/18 03:18 70 19 30 12/23/18 03:12 69 12/23/18 01:30 69 20 30 12/23/18 01:00 73 12/23/18 00:00 97.0 68 21 142/72 (95) 99 12/23/18 00:00 Mechanical Ventilator 12/22/18 23:36 68 20 30 12/22/18 21:44 68 17 30 12/22/18 21:16 66 153/89 12/22/18 20:00 Mechanical Ventilator 12/22/18 20:00 30 12/22/18 20:00 65 12/22/18 20:00 96.8 66 18 153/89 (110) 96 12/22/18 19:04 65 18 30 12/22/18 17:32 117/68 12/22/18 16:00 30 12/22/18 16:00 98.0 18 133/72 (92) 100 12/22/18 16:00 Mechanical Ventilator 12/22/18 15:14 65 12/22/18 14:55 75 18 30 12/22/18 13:50 70 20 30 12/22/18 13:45 100 12/22/18 13:45 30 12/22/18 13:45 Mechanical Ventilator 12/22/18 13:39 97.6 65 18 117/68 100 Mechanical Ventilator 100 12/22/18 13:25 64 16 120/72 100 Mechanical Ventilator 100 12/22/18 13:15 65 18 132/79 100 Mechanical Ventilator 100 12/22/18 13:00 65 20 95/32 100 Mechanical Ventilator 100 12/22/18 12:55 66 20 102/34 100 Mechanical Ventilator 100 12/22/18 12:50 66 20 103/28 100 Mechanical Ventilator 100 12/22/18 12:45 67 20 111/32 100 Mechanical Ventilator 100 12/22/18 12:41 100 12/22/18 12:40 97.4 68 20 117/41 93 Mechanical Ventilator 30 12/22/18 12:39 71 15 100 Intake and Output 12/22/18 12/23/18 18:59 06:59 Intake Total 870 ml 700 ml Balance 870 ml 700 ml Free Water 100 ml IV Total 850 ml Tube Feeding 540 ml Other 20 ml 60 ml # Bowel Movements 2 Laboratory Tests Test 12/22/18 11:45 Activated Partial Thromboplast Time 61 SEC (23-33) H Objective HEAD AND NECK: No JVD. Tracheostomy intact LUNGS: Clear CARDIOVASCULAR: Irregular S1 and S2 with no gallop. Sternotomy is intact Pacemaker in the right subclavian ABDOMEN: Soft.PEG in place EXTREMITIES: 1+ pitting edema. Right heel in dressing Shivam Sharpe MD December 23, 2018 11:20
--- NOTE | 2018-12-23 11:33 | General Progress Note ---
Assessment/Plan Problem List: (1) Transplant ICD Codes: Z94.9 - Transplanted organ and tissue status, unspecified SNOMED: 679309460 (2) HTN (hypertension) ICD Codes: I10 - Essential (primary) hypertension SNOMED: 59019767 (3) Pacemaker ICD Codes: Z95.0 - Presence of cardiac pacemaker SNOMED: 384532593 (4) CHF (congestive heart failure) ICD Codes: I50.9 - Heart failure, unspecified SNOMED: 05793077 (5) DM (diabetes mellitus) ICD Codes: E11.9 - Type 2 diabetes mellitus without complications SNOMED: 52965415 (6) Foot ulcer ICD Codes: L97.509 - Non-pressure chronic ulcer of other part of unspecified foot with unspecified severity SNOMED: 11539945 Qualifiers: Qualified Codes: L97.511 - Non-pressure chronic ulcer of other part of right foot limited to breakdown of skin (7) ESRD (end stage renal disease) on dialysis ICD Codes: N18.6 - End stage renal disease; Z99.2 - Dependence on renal dialysis SNOMED: 529042073 Assessment/Plan: History of liver transplant, currently on Prograf C. difficile negative status post tracheostomy and PEG Infected G-tube site, fu ID recs would care cx >> GRAM NEGATIVE BACILLUS GT site care BID/prn topical abx around GT site per ID HD per nephro cont tacrolimus prn transfusions ppi zofran prn bowel regimen follow labs supportive care Subjective ROS Limited/Unobtainable: No Allergies: Coded Allergies: CEPHALEXIN (Unverified Allergy, Unknown, 02/24/14) SULFAMETHOXAZOLE (Unverified Allergy, Unknown, 02/24/14) TRIMETHOPRIM (Unverified Allergy, Unknown, 02/24/14) Subjective he pulled his NGT again Objective Last 24 Hour Vital Signs Date Time Temp Pulse Resp B/P (MAP) Pulse Ox O2 Delivery O2 Flow Rate FiO2 12/23/18 09:24 67 17 30 12/23/18 08:44 65 105/61 12/23/18 08:00 98.3 66 21 105/61 (76) 96 12/23/18 08:00 65 12/23/18 08:00 30 12/23/18 08:00 Mechanical Ventilator 12/23/18 07:22 66 17 30 12/23/18 05:50 156/73 12/23/18 05:29 65 16 30 12/23/18 04:00 Mechanical Ventilator 12/23/18 04:00 30 12/23/18 04:00 98.5 70 22 159/73 (101) 98 12/23/18 03:18 70 19 30 12/23/18 03:12 69 12/23/18 01:30 69 20 30 12/23/18 01:00 73 12/23/18 00:00 97.0 68 21 142/72 (95) 99 12/23/18 00:00 Mechanical Ventilator 12/22/18 23:36 68 20 30 12/22/18 21:44 68 17 30 12/22/18 21:16 66 153/89 12/22/18 20:00 Mechanical Ventilator 12/22/18 20:00 30 12/22/18 20:00 65 12/22/18 20:00 96.8 66 18 153/89 (110) 96 12/22/18 19:04 65 18 30 12/22/18 17:32 117/68 12/22/18 16:00 30 12/22/18 16:00 98.0 18 133/72 (92) 100 12/22/18 16:00 Mechanical Ventilator 12/22/18 15:14 65 12/22/18 14:55 75 18 30 12/22/18 13:50 70 20 30 12/22/18 13:45 100 12/22/18 13:45 30 12/22/18 13:45 Mechanical Ventilator 12/22/18 13:39 97.6 65 18 117/68 100 Mechanical Ventilator 100 12/22/18 13:25 64 16 120/72 100 Mechanical Ventilator 100 12/22/18 13:15 65 18 132/79 100 Mechanical Ventilator 100 12/22/18 13:00 65 20 95/32 100 Mechanical Ventilator 100 12/22/18 12:55 66 20 102/34 100 Mechanical Ventilator 100 12/22/18 12:50 66 20 103/28 100 Mechanical Ventilator 100 12/22/18 12:45 67 20 111/32 100 Mechanical Ventilator 100 12/22/18 12:41 100 12/22/18 12:40 97.4 68 20 117/41 93 Mechanical Ventilator 30 12/22/18 12:39 71 15 100 Intake and Output 5/7/19 5/8/19 18:59 06:59 Intake Total 870 ml 700 ml Balance 870 ml 700 ml Free Water 100 ml IV Total 850 ml Tube Feeding 540 ml Other 20 ml 60 ml # Bowel Movements 2 Laboratory Tests 12/22/18 11:45: Activated Partial Thromboplast Time 61H Height (Feet): 5 Height (Inches): 4.00 Weight (Pounds): 245 General Appearance: no apparent distress EENT: normal ENT inspection Neck: supple Cardiovascular: regular rhythm Respiratory/Chest: decreased breath sounds Abdomen: normal bowel sounds, non tender, soft Extremities: non-tender Jorge Escalera MD December 23, 2018 11:33
[2018-12-23 12:00] VITALS: BP 92/40
--- NOTE | 2018-12-23 12:49 | General Progress Note ---
Assessment/Plan Assessment/Plan: #Right heel diabetic foot ulcer without osteomyelitis #PAD -seen by Podiatry and ID -s/p Vanco x 2 weeks during HD -s/p selective RLE angio with SFA/pop stenting -continue Eliquis #Acute Resp hypercapnic failure s/p trach #Angioedema -continue trach care -Remains vent-dependant, breathing trials ongoing -Pulm following #End-stage renal disease, on dialysis -HD per Nephrology #Coronary artery disease -continue ASA, Coreg, atorva -cardiology following #Type 2 DM -ISS #Acute metabolic encephalopathy -continue supportive care -Neurology following #history of chronic HCV infection #history of liver transplant -continue Prograf -GI following #Dysphagia S/p PEG with PEG site cellulitis -s/p antibiotics per ID and GI -continue local wound care Subjective Date patient seen: December 23, 2018 Time patient seen: 12:40 ROS Limited/Unobtainable: Yes Constitutional: Denies: fever Cardiovascular: Denies: chest pain Respiratory: Denies: cough Gastrointestinal/Abdominal: Denies: abdomen distended Allergies: Coded Allergies: CEPHALEXIN (Unverified Allergy, Unknown, 02/24/14) SULFAMETHOXAZOLE (Unverified Allergy, Unknown, 02/24/14) TRIMETHOPRIM (Unverified Allergy, Unknown, 02/24/14) Subjective Medicine follow up for acute resp failure, PAD, right heel infected DFU, ESRD. Remains on vent, weaning trials ongoing Objective Last 24 Hour Vital Signs Date Time Temp Pulse Resp B/P (MAP) Pulse Ox O2 Delivery O2 Flow Rate FiO2 12/23/18 12:00 30 12/23/18 12:00 97.8 72 21 92/40 (57) 96 12/23/18 12:00 Mechanical Ventilator 12/23/18 11:43 100 12/23/18 11:00 78 24 12/23/18 09:24 67 17 30 12/23/18 08:44 65 105/61 12/23/18 08:00 98.3 66 21 105/61 (76) 96 12/23/18 08:00 65 12/23/18 08:00 30 12/23/18 08:00 Mechanical Ventilator 12/23/18 07:22 66 17 30 12/23/18 05:50 156/73 12/23/18 05:29 65 16 30 12/23/18 04:00 Mechanical Ventilator 12/23/18 04:00 30 12/23/18 04:00 98.5 70 22 159/73 (101) 98 12/23/18 03:18 70 19 30 12/23/18 03:12 69 12/23/18 01:30 69 20 30 12/23/18 01:00 73 12/23/18 00:00 97.0 68 21 142/72 (95) 99 12/23/18 00:00 Mechanical Ventilator 12/22/18 23:36 68 20 30 12/22/18 21:44 68 17 30 12/22/18 21:16 66 153/89 12/22/18 20:00 Mechanical Ventilator 12/22/18 20:00 30 12/22/18 20:00 65 12/22/18 20:00 96.8 66 18 153/89 (110) 96 12/22/18 19:04 65 18 30 12/22/18 17:32 117/68 12/22/18 16:00 30 12/22/18 16:00 98.0 18 133/72 (92) 100 12/22/18 16:00 Mechanical Ventilator 12/22/18 15:14 65 12/22/18 14:55 75 18 30 12/22/18 13:50 70 20 30 12/22/18 13:45 100 12/22/18 13:45 30 12/22/18 13:45 Mechanical Ventilator 12/22/18 13:39 97.6 65 18 117/68 100 Mechanical Ventilator 100 12/22/18 13:25 64 16 120/72 100 Mechanical Ventilator 100 12/22/18 13:15 65 18 132/79 100 Mechanical Ventilator 100 12/22/18 13:00 65 20 95/32 100 Mechanical Ventilator 100 12/22/18 12:55 66 20 102/34 100 Mechanical Ventilator 100 12/22/18 12:50 66 20 103/28 100 Mechanical Ventilator 100 Intake and Output 12/22/18 12/23/18 18:59 06:59 Intake Total 870 ml 700 ml Balance 870 ml 700 ml Free Water 100 ml IV Total 850 ml Tube Feeding 540 ml Other 20 ml 60 ml # Bowel Movements 2 Height (Feet): 5 Height (Inches): 4.00 Weight (Pounds): 245 General Appearance: alert Neck: normal alignment Cardiovascular: normal rate, regular rhythm Respiratory/Chest: lungs clear, normal breath sounds Abdomen: non tender, soft Dennis Branham MD December 23, 2018 12:49
--- NOTE | 2018-12-23 13:33 | General Progress Note ---
Assessment/Plan Assessment/Plan: Assessment and Recs: # Coagulopathy likely secondary to decreased Vitk dependent cofactors (high INR , PT) --> monitor closely for any evidence of bleeding. Currently is on eliquis --> VIT K on prn basis sq can be administered ==> recently has improved inr 1.2-->1.1-->1.2 # Anemia of chronic disease due to underlying chronic medical issues, multifactorial as well as kidney disease --> Anemia workup has been ordered, rule out gi bleed, seen by gi, also reviewed w/u --> HAS BEEN reordered since refusing --> No evidence of hemolysis is noted, peripheral smear has been reviewed. --> Epogen can be consider if hgb downtrends --> Medications have been reviewed --> evaluate with Gi team prn --> transfuse if hgb is < 7 (will trend CBC daily) ==> hgb trend 11.2-->10.9-->10.8-->10.7-->10.2-->9.7-->9.7-->8.5-->9 # Failure to thrive is likely related to poor overall status, poor functional status --> with multiple decub ulcerations that are noted, seen by id/surgery --> s/p trach as well --> cea is wnl # Acute respiratory failure is now s/p trach to vent --> as per surgery recs # Ground glass opacities present on imaging of lung --> with pleural effusions, s/p drainage at this time --> no evidence for malignancy is noted --> as per pulm # Pleural effusion --> s/p thoracentesis # Hyperkalemia --> kayxelate has been given # Renal failure --> per renal recs, appreciated --> getting hd as per schedule # Altered level of consciousness ==> currently as per baseline # PAD off heparin gtt and now on eliquis --> per vasc and cards --> 12/22 s/p right leg angiogram with intervention The timing of this note does not necessarily reflect the time of the patient was seen. Greatly appreciate consultation! Subjective Constitutional: Denies: no symptoms, chills, diaphoresis, fever, malaise, weakness, other HEENT: Denies: no symptoms, eye pain, blurred vision, tearing, double vision, ear pain, ear discharge, nose pain, nose congestion, throat pain, throat swelling, mouth pain, mouth swelling, other Cardiovascular: Denies: no symptoms, chest pain, edema, irregular heart rate, lightheadedness, palpitations, syncope, other Respiratory: Denies: no symptoms, cough, orthopnea, shortness of breath, SOB with excertion, SOB at rest, sputum, stridor, wheezing, other Gastrointestinal/Abdominal: Denies: no symptoms, abdomen distended, abdominal pain, black stools, tarry stools, blood in stool, constipated, diarrhea, difficulty swallowing, nausea, poor appetite, poor fluid intake, rectal bleeding , vomiting, other Genitourinary: Denies: no symptoms, burning, discharge, frequency, flank pain, hematuria, incontinence, pain, urgency, other 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: Denies: no symptoms, anxiety, depressed, emotional problems, headache, numbness, paresthesia, pre-existing deficit, seizure, tingling, tremors, weakness, other Endocrine: Denies: no symptoms, excessive sweating, flushing, intolerance to cold, intolerance to heat, increased hunger, increased thirst, increased urine, unexplained weight gain, unexplained weight loss, other Hematologic/Lymphatic: Denies: no symptoms, anemia, easy bleeding, easy bruising, other Allergies: Coded Allergies: CEPHALEXIN (Unverified Allergy, Unknown, 02/24/14) SULFAMETHOXAZOLE (Unverified Allergy, Unknown, 02/24/14) TRIMETHOPRIM (Unverified Allergy, Unknown, 02/24/14) Subjective 11/30: comfortable, on abx, no complaints, on t-piece 12/01: to have hd done potentially tomorrow, is more alert/awake 12/02: no major bleeding, hgb remains approx 11, no changes 12/03: no events, breathing mildly better, hgb is improved 12/04: on vent/trach, no major changes, sr ekg 12/10: small amount of secretions, on trach/vent, no issues otherwise 12/11: no major issues, no complaints, labs reviewed, no sig changes 12/13: no events to report, no fevers or chills, awaiting placement 12/14: no changes, no major events to report, no fevers or chills 12/15: pending placement, getting gt feeds and hd as per renal 12/16: labs have been reviewed, cbc noted, no changes 12/17: no events, no fevers, no cp, hgb remains stable 12/18: restarted on heparin gtt, seen by pulcamelia, cards 12/20: continues to be on heparin gtt, no bleeding reported, no f/c 12/21: hd for today, no fevers or chils, off hep gtt on eliquis 12/22: to get hd tomorrow, today is s/p right leg angiogram with intervention 12/23: hgb remins stable, no fevers or chills reported Objective Last 24 Hour Vital Signs Date Time Temp Pulse Resp B/P (MAP) Pulse Ox O2 Delivery O2 Flow Rate FiO2 12/23/18 12:00 30 12/23/18 12:00 97.8 72 21 92/40 (57) 96 12/23/18 12:00 71 12/23/18 12:00 Mechanical Ventilator 12/23/18 11:43 100 12/23/18 11:00 78 24 12/23/18 09:24 67 17 30 12/23/18 08:44 65 105/61 12/23/18 08:00 98.3 66 21 105/61 (76) 96 12/23/18 08:00 65 12/23/18 08:00 30 12/23/18 08:00 Mechanical Ventilator 12/23/18 07:22 66 17 30 12/23/18 05:50 156/73 12/23/18 05:29 65 16 30 12/23/18 04:00 Mechanical Ventilator 12/23/18 04:00 30 12/23/18 04:00 98.5 70 22 159/73 (101) 98 12/23/18 03:18 70 19 30 12/23/18 03:12 69 12/23/18 01:30 69 20 30 12/23/18 01:00 73 12/23/18 00:00 97.0 68 21 142/72 (95) 99 12/23/18 00:00 Mechanical Ventilator 12/22/18 23:36 68 20 30 12/22/18 21:44 68 17 30 12/22/18 21:16 66 153/89 12/22/18 20:00 Mechanical Ventilator 12/22/18 20:00 30 12/22/18 20:00 65 12/22/18 20:00 96.8 66 18 153/89 (110) 96 12/22/18 19:04 65 18 30 12/22/18 17:32 117/68 12/22/18 16:00 30 12/22/18 16:00 98.0 18 133/72 (92) 100 12/22/18 16:00 Mechanical Ventilator 12/22/18 15:14 65 12/22/18 14:55 75 18 30 12/22/18 13:50 70 20 30 12/22/18 13:45 100 12/22/18 13:45 30 12/22/18 13:45 Mechanical Ventilator 12/22/18 13:39 97.6 65 18 117/68 100 Mechanical Ventilator 100 Intake and Output 12/22/18 12/23/18 19:00 07:00 Intake Total 915 ml 655 ml Balance 915 ml 655 ml Free Water 100 ml IV Total 850 ml Tube Feeding 45 ml 495 ml Other 20 ml 60 ml # Bowel Movements 2 Height (Feet): 5 Height (Inches): 4.00 Weight (Pounds): 245 Objective PE General Appearance: mild distress, moderate distress Lines, tubes and drains: peripheral HEENT: EOMI, thrush, tonsils swollen ++trach Neck: normal inspection Respiratory/Chest: decreased breath sounds, accessory muscle use Cardiovascular/Chest: tachycardia Abdomen: soft, no organomegaly, no mass, ++ peg Extremities: other Skin Exam: warm/dry, rash Neurologic: alert, responsive Zacarias Khoury MD December 23, 2018 13:33
--- NOTE | 2018-12-23 15:38 | Surgery Progress Note ---
Surgery Progress Note Subjective Procedure Performed 1. emergency tracheostomy 2. left femoral central venous catheter insertion 3. bronchoscopy Additional Comments right arm ulcer with necrotic eschar stable cap left heel with wound Objective Last 24 Hour Vital Signs Date Time Temp Pulse Resp B/P (MAP) Pulse Ox O2 Delivery O2 Flow Rate FiO2 12/23/18 13:25 65 19 30 12/23/18 12:00 30 12/23/18 12:00 97.8 72 21 92/40 (57) 96 12/23/18 12:00 71 12/23/18 12:00 Mechanical Ventilator 12/23/18 11:43 100 12/23/18 11:00 78 24 12/23/18 09:24 67 17 30 12/23/18 08:44 65 105/61 12/23/18 08:00 98.3 66 21 105/61 (76) 96 12/23/18 08:00 65 12/23/18 08:00 30 12/23/18 08:00 Mechanical Ventilator 12/23/18 07:22 66 17 30 12/23/18 05:50 156/73 12/23/18 05:29 65 16 30 12/23/18 04:00 Mechanical Ventilator 12/23/18 04:00 30 12/23/18 04:00 98.5 70 22 159/73 (101) 98 12/23/18 03:18 70 19 30 12/23/18 03:12 69 12/23/18 01:30 69 20 30 12/23/18 01:00 73 12/23/18 00:00 97.0 68 21 142/72 (95) 99 12/23/18 00:00 Mechanical Ventilator 12/22/18 23:36 68 20 30 12/22/18 21:44 68 17 30 12/22/18 21:16 66 153/89 12/22/18 20:00 Mechanical Ventilator 12/22/18 20:00 30 12/22/18 20:00 65 12/22/18 20:00 96.8 66 18 153/89 (110) 96 12/22/18 19:04 65 18 30 12/22/18 17:32 117/68 12/22/18 16:00 30 12/22/18 16:00 98.0 18 133/72 (92) 100 12/22/18 16:00 Mechanical Ventilator I&O Intake and Output 12/22/18 12/23/18 19:00 07:00 Intake Total 915 ml 655 ml Balance 915 ml 655 ml Free Water 100 ml IV Total 850 ml Tube Feeding 45 ml 495 ml Other 20 ml 60 ml # Bowel Movements 2 Dressing: saturated Wound: other Cardiovascular: RSR Respiratory: clear Abdomen: soft, flat, present bowel sounds Extremities: other Plan Problems: (1) Acute respiratory failure Assessment & Plan: dressings prn vent prn (2) Ground glass opacity present on imaging of lung (3) Pleural effusion (4) Hyperkalemia (5) Renal failure (6) Altered level of consciousness (7) blood culture: gram negative rods. (8) Rash and other nonspecific skin eruption (9) NSTEMI (non-ST elevated myocardial infarction) (10) ESRD (end stage renal disease) on dialysis (11) Elevated troponin (12) Foot ulcer (13) DM (diabetes mellitus) (14) CHF (congestive heart failure) (15) Pacemaker (16) Elevated troponin and foot ulcer (17) Cellulitis, abdominal wall (18) Encephalopathy acute (19) Pericardial effusion (20) Tachycardia (21) Sepsis (22) HTN (hypertension) (23) Severe tongue swelling (24) Severe tongue swelling Additional Comments spoke with podiatry who will see left heel and manage as for right arm wound currently stable. will need eschar debridement at later time Jerman French December 23, 2018 15:38
--- NOTE | 2018-12-23 15:43 | 48 Hour Post Anesthesia Eval ---
Post Anesthesia Evaluation Procedure: Right Leg Angiogram with Intervention Date of Evaluation: December 23, 2018 Time of Evaluation: 15:41 Blood Pressure Systolic: 104 0: 56 Pulse Rate: 72 Respiratory Rate: 20 Temperature (Fahrenheit): 97.6 O2 Sat by Pulse Oximetry: 98 Airway: other - trach in place Nausea: No Vomiting: No Pain Intensity: 2 Hydration Status: adequate Cardiopulmonary Status: stable Mental Status/LOC: patient returned to baseline Follow-up Care/Observations: n/a Post-Anesthesia Complications: none Follow-up care needed: N/A Derik Han MD December 23, 2018 15:43
[2018-12-23 16:00] VITALS: BP 123/68
--- NOTE | 2018-12-23 17:11 | Infectious Diseases Prog Note ---
Assessment/Plan Problems: (1) G-tube site cellulitis Assessment & Plan: improved, culture from the G tube site grew pseudomonas , S /P ciprofloxacin for 7 days , continue local care as per GI. keep area clean and dry . may need tube change if continue to leak the feeding tube materials (2) Thrush, oral Assessment & Plan: continue local nystatin as needed , S/P micafungin for three weeks empirically (3) HCV antibody positive Assessment & Plan: no evidence of active infection, with undetectable viral load , suspect due to previous infection , cleared, S/P liver transplant . (4) Foot ulcer Assessment & Plan: in diabetic patient , with MRSA , S/P vancomycin treatment with HD for two weeks , had another vascular eval today with revascularization to the right leg , S/P ulcer resection by learning and development associate today . bone scan ruled out osteomyelitis of the heel . continue local wound care as per learning and development associate . (5) DM (diabetes mellitus) Assessment & Plan: recommend tight glycemic control to keep blood glucose between 100-140 (6) CHF (congestive heart failure) Assessment & Plan: on HD , renal is following, monitor daily weight (7) Severe tongue swelling Assessment & Plan: improving , s/p tracheostomy to protect his airway since respiratory status worsened . now improving, pulmonary is following (8) Pleural effusion Assessment & Plan: recurrent on the right, with lung collapse , S/P thoracentesis X2 with removal of 1.5 cc of clear fluids. PREVIOUS culture were negative with negative cytology Assessment/Plan will continue to monitor patient on daily basis and make recommendations as necessary since he is high risk for recurrent infection Subjective Constitutional: Reports: no symptoms HEENT: Reports: no symptoms Respiratory: Reports: no symptoms Breasts: Reports: no symptoms Cardiovascular: Reports: no symptoms Gastrointestinal/Abdominal: Reports: no symptoms Genitourinary: Reports: no symptoms Neurologic: Reports: weakness Psychiatric: Reports: no symptoms Skin: Reports: ulcer Endocrine: Reports: no symptoms Hematologic: Reports: no symptoms Musculoskeletal: Reports: pain Allergies: Coded Allergies: CEPHALEXIN (Unverified Allergy, Unknown, 02/24/14) SULFAMETHOXAZOLE (Unverified Allergy, Unknown, 02/24/14) TRIMETHOPRIM (Unverified Allergy, Unknown, 02/24/14) Subjective he was comfortable, lying in bed, a little lethargic from anaesthesia, no tongue swelling , awake and responsive, no fever or chills, no significant secretions , no SOB . has no thrush on his tongue Objective Vital Signs Last 24 Hour Vital Signs Date Time Temp Pulse Resp B/P (MAP) Pulse Ox O2 Delivery O2 Flow Rate FiO2 12/23/18 16:00 98.0 19 123/68 (86) 96 12/23/18 16:00 Mechanical Ventilator 12/23/18 16:00 68 12/23/18 16:00 30 12/23/18 15:43 72 20 98 12/23/18 14:55 68 22 30 12/23/18 13:25 65 19 30 12/23/18 12:00 30 12/23/18 12:00 97.8 72 21 92/40 (57) 96 12/23/18 12:00 71 12/23/18 12:00 Mechanical Ventilator 12/23/18 11:43 100 12/23/18 11:00 78 24 12/23/18 09:24 67 17 30 12/23/18 08:44 65 105/61 12/23/18 08:00 98.3 66 21 105/61 (76) 96 12/23/18 08:00 65 12/23/18 08:00 30 12/23/18 08:00 Mechanical Ventilator 12/23/18 07:22 66 17 30 12/23/18 05:50 156/73 12/23/18 05:29 65 16 30 12/23/18 04:00 Mechanical Ventilator 12/23/18 04:00 30 12/23/18 04:00 98.5 70 22 159/73 (101) 98 12/23/18 03:18 70 19 30 12/23/18 03:12 69 12/23/18 01:30 69 20 30 12/23/18 01:00 73 12/23/18 00:00 97.0 68 21 142/72 (95) 99 12/23/18 00:00 Mechanical Ventilator 12/22/18 23:36 68 20 30 12/22/18 21:44 68 17 30 12/22/18 21:16 66 153/89 12/22/18 20:00 Mechanical Ventilator 12/22/18 20:00 30 12/22/18 20:00 65 12/22/18 20:00 96.8 66 18 153/89 (110) 96 12/22/18 19:04 65 18 30 12/22/18 17:32 117/68 Height (Feet): 5 Height (Inches): 4.00 Weight (Pounds): 245 General Appearance: WD/WN, no acute distress HEENT: normocephalic, atraumatic, anicteric, mucous membranes moist, PERRL, supple, no JVD, status post trach Respiratory/Chest: chest wall non-tender, lungs clear, normal breath sounds, no respiratory distress, no accessory muscle use Cardiovascular: normal peripheral pulses, normal rate, regular rhythm, no gallop/murmur, no JVD Abdomen: normal bowel sounds, soft, non tender, no organomegaly, non distended , no mass, no scars Genitourinary: normal external genitalia Extremities: no cyanosis, no clubbing Skin: no rash, no lesions, ulcers 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: it program engagement director 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 normal, no motor/sensory deficits, alert, responsive Lymphatic: no neck adenopathy, no groin adenopathy Musculoskeletal: normal muscle bulk, no effusion Current Medications Medications (Trade) Dose Ordered Sig/Aleks Route PRN Reason Start Time Stop Time Status Last Admin Dose Admin Acetaminophen (Tylenol) 650 mg Q6H PRN GT Mild Pain/Temp > 100.5 12/21/18 16:00 01/20/19 15:59 12/21/18 18:39 Apixaban (Eliquis) 2.5 mg BID ORAL 12/21/18 18:00 01/20/19 17:59 12/23/18 08:45 Bacitracin (Bacitracin) 1 applic EVERY 12 HOURS TOPIC 12/11/18 21:00 01/06/19 17:59 12/23/18 08:45 Carvedilol (Coreg) 3.125 mg EVERY 12 HOURS GT 12/21/18 21:00 01/03/19 20:59 12/22/18 21:16 Clotrimazole (Lotrimin) 1 applic BID TOPIC 12/07/18 18:00 01/06/19 17:59 12/23/18 08:45 Collagenase (Santyl) 1 applic DAILY TOPIC 12/19/18 09:00 01/18/19 08:59 12/23/18 08:46 Dextrose (Dextrose 50%) 25 ml Q30M PRN IV Hypoglycemia 12/01/18 19:30 12/31/18 19:29 Dextrose (Dextrose 50%) 50 ml Q30M PRN IV Hypoglycemia 12/01/18 19:30 12/31/18 19:29 Escitalopram Oxalate (Lexapro) 10 mg DAILY GT 12/18/18 09:00 01/17/19 08:59 12/23/18 08:45 Hydralazine HCl (Apresoline) 10 mg Q6H PRN GT For High Blood Pressure 12/03/18 16:45 01/02/19 16:44 12/07/18 04:47 Hydromorphone HCl (Dilaudid) 1 mg Q4H PRN ORAL pain 4-12/22/18 12:00 12/28/18 15:59 12/23/18 16:22 Insulin Aspart (NovoLOG) EVERY 6 HOURS SUBQ 12/02/18 00:00 12/31/18 20:59 12/23/18 12:14 Lactulose (Cephulac) 20 gm THREE TIMES A DAY PRN GT Constipation 11/24/18 18:51 12/23/18 18:50 Midodrine (Pro-Amatine) 10 mg THREE TIMES A DAY GT 12/19/18 13:00 01/18/19 12:59 12/23/18 13:02 Mirtazapine (Remeron) 15 mg BEDTIME GT 12/21/18 21:00 01/20/19 20:59 12/22/18 21:16 Nitroglycerin (Nitro-Bid) 1 inch TID@0600,1200,1800 TOPIC 12/07/18 12:00 01/06/19 11:59 12/23/18 05:50 Tacrolimus (Prograf) 2 mg SuTuThSa@0900,2100 ORAL 12/17/18 21:00 01/16/19 20:59 12/22/18 21:18 Francois Landis M.D. December 23, 2018 17:11
--- NOTE | 2018-12-23 18:56 | Neurology Progress Note ---
Interim History Interim History Interim History Mr. Restrepo feels a little better. However his spirits are low. The right foot is less painful. The right upper extremity feels about the same. He was able to sleep well last night. He is breathing well. He feels generally weaker. The mind has not been clear. The right upper extremity is still swollen but less painful. He denies any new neurologic symptoms. Review of Systems Neuro Review of Systems Benign. Objective Physical Exam Last Vital Signs Date Time Temp Pulse Resp B/P (MAP) Pulse Ox O2 Delivery O2 Flow Rate FiO2 12/23/18 17:20 67 20 30 12/23/18 17:11 123/68 12/23/18 16:00 98.0 96 12/23/18 16:00 Mechanical Ventilator 12/16/18 13:50 12.0 Neurologic Exam Objective PHYSICAL EXAMINATION: GENERAL: He is a well-developed and well-nourished, pleasant gentleman, lying in bed connected to a ventilator via a tracheostomy. HEAD: Normocephalic and atraumatic. EENT: Examination benign. NECK: No neck rigidity was observed. He did have a tracheostomy. NEUROLOGICAL EXAMINATION: MENTAL STATUS EXAMINATION: He was awake and alert. He was fully oriented. He was able to recall 3/3 words immediately and was able to remember them in 1 and 3 minutes. He was able to remember presidents Trump and Obama. SPEECH: Could not be tested, but he was able to mouth words relatively well. LANGUAGE: He was able to comprehend and express himself relatively well. CRANIAL NERVES EXAMINATION: II: The visual mckeon were intact to confrontation testing. III, IV & : The external ocular movements were full and the pupils 3 mm in diameter, equal, round, regular, and reactive sluggishly to light. V: He had normal facial sensations, and the temporales, masseters, and pterygoids functioned normally. VII: He had normal facial expressions and no facial asymmetry. VIII: Hearing was decreased bilaterally with worse hearing on the left side compared to the right. IX: The palate moved symmetrically on phonation. X: Could not be tested. XI: The sternocleidomastoids and trapezii functioned normally. XII: The tongue was in the midline without any fasciculations or atrophy. MOTOR SYSTEM: The tone was normal in all four extremities. Examination of muscle mass revealed generalized muscle wasting. Examination of power revealed G 5/5 power except for G 4+/5 power in the iliopsoas muscles bilaterally, and G 4/5 in the right ankle and toes. Power in the right upper extremity was limited by pain. Power in the right foot was also limited by pain. SENSORY EXAMINATION: He had intact sensations to light touch. Other sensory modalities could not be tested adequately. REFLEXES: 1+ and bilaterally symmetrical at the biceps, triceps, brachioradialis , and knees, 0 at both ankles. The plantar responses were flexor bilaterally. COORDINATION: He performed well on [id number] testing. STANCE & GAIT: Were deferred. Impression/Recommendations Diagnostic Impression 1. Mr. Gregg Restrepo is a 68-year-old, right-handed, gentleman with past history of multiple medical problems including hypertension, diabetes mellitus, end-stage renal disease for which he is hemodialysis dependent, prior episodes of sepsis, and prior episodes of encephalopathy, who was admitted to [facility] on October 31, 2018. Following that, he has had a stormy hospital course including pneumonia and sepsis, right foot infection, respiratory failure for which he has needed tracheostomy and in addition he has exhibited an alteration in his mental state with some waxing and waning of his mental state. 2. He feels a little better. However his spirits are low. The right foot is less painful. The right upper extremity feels about the same. He was able to sleep well last night. He is breathing well. He feels generally weaker. The mind has not been clear. The right upper extremity is still swollen but less painful. He denies any new neurologic symptoms. 3. On neurological examination, at this time, he is fully oriented, his memory is normal. He has minimally impaired higher cognitive function. He is able to comprehend and express himself well. He does have mild G 4+/5 weakness in the iliopsoas muscles bilaterally. Power in the right upper extremity was limited by pain. Power in the right foot was also limited by pain but the weakness in the right ankle and toes is better than yesterday. He had globally diminished deep tendon reflexes with loss of ankle jerks, but no definite focal or lateralizing neurological findings. 4. His latest laboratory data on my initial evaluation revealed that he was anemic with a hemoglobin of 10.8 G. His last blood gas performed on 11/14/2018 revealed that he had a pCO2 elevated at 56.4 with a normal pO2 of 88.3 and normal pH of 7.37. His latest chemistry panel revealed that he was mildly hyponatremic with a sodium of 130, and had a chloride of 90. The BUN was elevated at 75, creatinine elevated at 7.4, glucose elevated at 156, Hemoglobin A1c elevated at 6.9%, Alkaline phosphatase elevated at 131, and ProBNP greater than 35,000. His last B12 level on 11/07/2018 was 723. His last folate on was 18.6. His last TSH on 12/06/2018 was 4.82, which is minimally elevated. 5. The CT scan of the brain performed on 11/10/2018 was benign for acute intracranial pathology. 6. The EEG done on 12/08/18 revealed left temporal dysfunction. 7. The patient's history and neurological examination are most consistent with mild multifactorial encephalopathy, which apparently waxes and wanes, but no definite focal neurological dysfunction. His encephalopathy is minimally better today. 8. He tells me that he had a brain bleed many years ago. I did review his imaging done at [facility] a few years ago and he had closed head injuries with subarachnoid and subdural blood in the past. Recommendations 1. Continue present management. 2. Continue to correct the patient's toxic metabolic imbalances. 3. Mobilize with PT/OT. 4. Consider getting ENT evaluation for worsening hearing. 5. Observe closely. Pantera Cool M.D., M.S.P.H. Pantera Cool MD December 23, 2018 18:56
[2018-12-23 20:00] VITALS: BP 132/71
[2018-12-24] VITALS: BP 152/74
[2018-12-24] MEDS: NovoLOG Insulin Flexpen SUBQ SCH ×4 (01:18→17:46)
--- NOTE | 2018-12-24 02:00 | Progress Note ---
DATE: 12/23/2018 PSYCHIATRIC PROGRESS NOTE SUBJECTIVE: The patient is . His mental condition is unchanged since previous encounter. The patient is still having anxiety mostly at nighttime and has difficulty sleeping. His Remeron was increased to 50 mg and he is noticing improvement. He still has difficulty writing. MENTAL STATUS EXAMINATION: The patient is alert and oriented times self, place, and situation he is in. Mood is anxious and dysphoric. Affect is blunted. Congruent with mood and appropriate. Thought process is concrete. Thought content, no suicidal or homicidal ideation. Cognition is impaired. memory. Insight and judgment is impaired. ASSESSMENT: 1. Anxiety disorder. 2. Depressive disorder. PLAN: 1. We will continue the Remeron 50 mg at bedtime and continue the Lexapro 10 mg in the morning. 2. Provide the patient with reality orientation and supportive therapy. Jeffrey Lala M.D. DR: LINDA JOB#: [id number] CC:
[2018-12-24 04:00] VITALS: BP 146/93
[2018-12-24] MEDS: HYDROmorphone 2mg tab ORAL PRN ×4 (04:52→22:14)
[2018-12-24] MEDS: Nitroglycerin 2% oint pkt TOPIC SCH ×3 (06:00→17:42)
[2018-12-24 08:00] VITALS: BP 113/60
[2018-12-24] MEDS: Eliquis 2.5mg tablet ORAL SCH ×2 (08:37→17:41)
[2018-12-24] MEDS: Midodrine 10mg tab GT SCH ×3 (08:37→17:41)
[2018-12-24] MEDS: Bacitracin Oint UD TOPIC SCH ×2 (08:38→22:15)
--- NOTE | 2018-12-24 09:59 | General Progress Note ---
Assessment/Plan Problem List: (1) Transplant ICD Codes: Z94.9 - Transplanted organ and tissue status, unspecified SNOMED: 190823678 (2) HTN (hypertension) ICD Codes: I10 - Essential (primary) hypertension SNOMED: 10677714 (3) Pacemaker ICD Codes: Z95.0 - Presence of cardiac pacemaker SNOMED: 045293063 (4) CHF (congestive heart failure) ICD Codes: I50.9 - Heart failure, unspecified SNOMED: 51731085 (5) DM (diabetes mellitus) ICD Codes: E11.9 - Type 2 diabetes mellitus without complications SNOMED: 25815035 (6) Foot ulcer ICD Codes: L97.509 - Non-pressure chronic ulcer of other part of unspecified foot with unspecified severity SNOMED: 93215100 Qualifiers: Qualified Codes: L97.511 - Non-pressure chronic ulcer of other part of right foot limited to breakdown of skin (7) ESRD (end stage renal disease) on dialysis ICD Codes: N18.6 - End stage renal disease; Z99.2 - Dependence on renal dialysis SNOMED: 396551164 Assessment/Plan: History of liver transplant, currently on Prograf C. difficile negative status post tracheostomy and PEG Infected G-tube site, fu ID recs would care cx >> GRAM NEGATIVE BACILLUS GT site care BID/prn topical abx around GT site per ID HD per nephro cont tacrolimus prn transfusions ppi zofran prn bowel regimen follow labs supportive care Subjective ROS Limited/Unobtainable: No Allergies: Coded Allergies: CEPHALEXIN (Unverified Allergy, Unknown, 02/24/14) SULFAMETHOXAZOLE (Unverified Allergy, Unknown, 02/24/14) TRIMETHOPRIM (Unverified Allergy, Unknown, 02/24/14) Subjective he pulled his NGT again Objective Last 24 Hour Vital Signs Date Time Temp Pulse Resp B/P (MAP) Pulse Ox O2 Delivery O2 Flow Rate FiO2 12/24/18 09:06 68 22 30 12/24/18 08:37 67 113/60 12/24/18 08:00 30 12/24/18 08:00 Mechanical Ventilator 12/24/18 08:00 97.7 67 22 113/60 (77) 97 12/24/18 07:26 71 12/24/18 07:23 71 23 30 12/24/18 06:00 Mechanical Ventilator 12/24/18 06:00 152/74 12/24/18 05:27 71 23 30 12/24/18 04:00 30 12/24/18 04:00 Mechanical Ventilator 12/24/18 04:00 98.6 67 20 146/93 (110) 96 12/24/18 03:43 65 12/24/18 03:14 65 22 30 12/24/18 01:05 73 22 30 12/24/18 00:00 98.0 72 20 152/74 (100) 95 12/24/18 00:00 Mechanical Ventilator 12/23/18 23:36 74 12/23/18 23:29 76 19 30 12/23/18 21:18 66 22 30 12/23/18 20:47 66 132/71 12/23/18 20:00 Mechanical Ventilator 12/23/18 20:00 30 12/23/18 20:00 98.1 66 20 132/71 (91) 96 12/23/18 19:23 68 19 30 12/23/18 17:20 67 20 30 12/23/18 17:11 123/68 12/23/18 16:00 98.0 19 123/68 (86) 96 12/23/18 16:00 Mechanical Ventilator 12/23/18 16:00 68 12/23/18 16:00 30 12/23/18 15:43 72 20 98 12/23/18 14:55 68 22 30 12/23/18 13:25 65 19 30 12/23/18 12:00 30 12/23/18 12:00 97.8 72 21 92/40 (57) 96 12/23/18 12:00 71 12/23/18 12:00 Mechanical Ventilator 12/23/18 11:43 100 12/23/18 11:00 78 24 Intake and Output 12/23/18 12/24/18 18:59 06:59 Intake Total 605 ml 540 ml Output Total 2000 ml Balance -1395 ml 540 ml Free Water 110 ml Tube Feeding 495 ml 540 ml Hemodialysis UF 2000 ml Height (Feet): 5 Height (Inches): 4.00 Weight (Pounds): 240 General Appearance: no apparent distress EENT: normal ENT inspection Neck: supple Cardiovascular: normal rate Respiratory/Chest: decreased breath sounds Abdomen: normal bowel sounds, non tender, soft Extremities: non-tender Vosoghi,Jorge MD December 24, 2018 09:59
--- NOTE | 2018-12-24 10:30 | Cardiac Electrophysiology PN ---
Assessment/Plan Assessment/Plan 1. Troponin leak due to renal failure. No CP or SOB 2. S/P CABG. On Coreg 3.125 bid, aspirin 162 and Lipitor 3. NSVT in setting of old OH and CABG. EF 55%. No Syncope 4. Congestive heart failure. On hemodialysis 5. S/P R. Medtronic dual chamber pacemaker with Nl Fx. 6. End-stage renal disease, on hemodialysis per Dr. Stevens S/P Fistulogram by Dr. Salmeron 7. Multilevel AOD LE's with non-healing Right foot ulcer. Had abdominal angiogram per Dr Salmeron Antibiotic per Dr. Landis. FU by Dr. Huizar S/P peripheral intervention by Dr. Salmeron 12/22/18 8. History of liver transplant on Prograf 9. Respiratory failure, S/P tracheostomy. 10. Pleural effusion. FU Dr. Mendoza 11. Dysphagia, S/P PEG 12. Low BP, continue Midodrine 10 tid DW RN Subjective Subjective Comfortable in NAD. No new events.. Objective Last 24 Hour Vital Signs Date Time Temp Pulse Resp B/P (MAP) Pulse Ox O2 Delivery O2 Flow Rate FiO2 12/24/18 09:06 68 22 30 12/24/18 08:37 67 113/60 12/24/18 08:00 30 12/24/18 08:00 Mechanical Ventilator 12/24/18 08:00 97.7 67 22 113/60 (77) 97 12/24/18 07:26 71 12/24/18 07:23 71 23 30 12/24/18 06:00 Mechanical Ventilator 12/24/18 06:00 152/74 12/24/18 05:27 71 23 30 12/24/18 04:00 30 12/24/18 04:00 Mechanical Ventilator 12/24/18 04:00 98.6 67 20 146/93 (110) 96 12/24/18 03:43 65 12/24/18 03:14 65 22 30 12/24/18 01:05 73 22 30 12/24/18 00:00 98.0 72 20 152/74 (100) 95 12/24/18 00:00 Mechanical Ventilator 12/23/18 23:36 74 12/23/18 23:29 76 19 30 12/23/18 21:18 66 22 30 12/23/18 20:47 66 132/71 5/8/19 20:00 Mechanical Ventilator 12/23/18 20:00 30 12/23/18 20:00 98.1 66 20 132/71 (91) 96 12/23/18 19:23 68 19 30 12/23/18 17:20 67 20 30 12/23/18 17:11 123/68 12/23/18 16:00 98.0 19 123/68 (86) 96 12/23/18 16:00 Mechanical Ventilator 12/23/18 16:00 68 12/23/18 16:00 30 12/23/18 15:43 72 20 98 12/23/18 14:55 68 22 30 12/23/18 13:25 65 19 30 12/23/18 12:00 30 12/23/18 12:00 97.8 72 21 92/40 (57) 96 12/23/18 12:00 71 12/23/18 12:00 Mechanical Ventilator 12/23/18 11:43 100 12/23/18 11:00 78 24 Intake and Output 12/23/18 12/24/18 18:59 06:59 Intake Total 605 ml 540 ml Output Total 2000 ml Balance -1395 ml 540 ml Free Water 110 ml Tube Feeding 495 ml 540 ml Hemodialysis UF 2000 ml Objective HEAD AND NECK: No JVD. Tracheostomy intact LUNGS: Clear CARDIOVASCULAR: Irregular S1 and S2 with no gallop. Sternotomy is intact Pacemaker in the right subclavian ABDOMEN: Soft.PEG in place EXTREMITIES: 1+ pitting edema. Right heel in dressing Shivam Sharpe MD December 24, 2018 10:30
--- NOTE | 2018-12-24 10:31 | Nephrology Progress Note ---
Assessment/Plan Problem List: (1) ESRD (end stage renal disease) on dialysis (2) Foot ulcer (3) CHF (congestive heart failure) Assessment: Ej Fx 20 % (4) Pacemaker (5) Acute respiratory failure Assessment: with Co2 retention (6) G-tube site cellulitis Assessment ESRD with high K and SOB on admit Foot ulcer, likely infected High Troponin likely NSTMI Pacer , Pleural effusion s/p CABGS s/p Liver transplant Plan due dialysis today 12/23 BP low- improved on midodrine restart midodrine GT site infection, topical antibiotic Neuro note appreciated placement in process vascular esteban regarding heel ulcer per Dr Mcgill pain med change to dilaudid GT Now has tracheostomy and PEG Adjust BP meds add nitro paste TID Antibiotics by ID per cardio and ID Podiatry and Vascular surgical fu ? DC planning? Subjective ROS Limited/Unobtainable: No Objective Objective Last 24 Hour Vital Signs Date Time Temp Pulse Resp B/P (MAP) Pulse Ox O2 Delivery O2 Flow Rate FiO2 12/24/18 09:06 68 22 30 12/24/18 08:37 67 113/60 12/24/18 08:00 30 12/24/18 08:00 Mechanical Ventilator 12/24/18 08:00 97.7 67 22 113/60 (77) 97 12/24/18 07:26 71 12/24/18 07:23 71 23 30 12/24/18 06:00 Mechanical Ventilator 12/24/18 06:00 152/74 12/24/18 05:27 71 23 30 12/24/18 04:00 30 12/24/18 04:00 Mechanical Ventilator 12/24/18 04:00 98.6 67 20 146/93 (110) 96 12/24/18 03:43 65 12/24/18 03:14 65 22 30 12/24/18 01:05 73 22 30 12/24/18 00:00 98.0 72 20 152/74 (100) 95 12/24/18 00:00 Mechanical Ventilator 12/23/18 23:36 74 12/23/18 23:29 76 19 30 12/23/18 21:18 66 22 30 12/23/18 20:47 66 132/71 12/23/18 20:00 Mechanical Ventilator 12/23/18 20:00 30 12/23/18 20:00 98.1 66 20 132/71 (91) 96 12/23/18 19:23 68 19 30 12/23/18 17:20 67 20 30 12/23/18 17:11 123/68 12/23/18 16:00 98.0 19 123/68 (86) 96 12/23/18 16:00 Mechanical Ventilator 12/23/18 16:00 68 12/23/18 16:00 30 12/23/18 15:43 72 20 98 12/23/18 14:55 68 22 30 12/23/18 13:25 65 19 30 12/23/18 12:00 30 12/23/18 12:00 97.8 72 21 92/40 (57) 96 12/23/18 12:00 71 12/23/18 12:00 Mechanical Ventilator 12/23/18 11:43 100 12/23/18 11:00 78 24 Intake and Output 12/23/18 12/24/18 19:00 07:00 Intake Total 650 ml 540 ml Output Total 2000 ml Balance -1350 ml 540 ml Free Water 110 ml Tube Feeding 540 ml 540 ml Hemodialysis UF 2000 ml Height (Feet): 5 Height (Inches): 4.00 Weight (Pounds): 240 Objective no other change Nakul Stevens MD December 24, 2018 10:31
--- NOTE | 2018-12-24 10:57 | General Progress Note ---
Assessment/Plan Assessment/Plan: #Right heel diabetic foot ulcer without osteomyelitis #PAD -seen by Podiatry and ID -s/p Vanco x 2 weeks during HD -s/p selective RLE angio with SFA/pop stenting -continue Eliquis #Acute Resp hypercapnic failure s/p trach #Angioedema -continue trach care -Remains vent-dependant, breathing trials ongoing -Pulm following #End-stage renal disease, on dialysis -HD per Nephrology #Coronary artery disease -continue ASA, Coreg, atorva -cardiology following #Type 2 DM -ISS #Acute metabolic encephalopathy -continue supportive care -Neurology following #history of chronic HCV infection #history of liver transplant -continue Prograf -GI following #Dysphagia S/p PEG with PEG site cellulitis -s/p antibiotics per ID and GI -continue local wound care Subjective Date patient seen: December 24, 2018 Time patient seen: 10:45 ROS Limited/Unobtainable: Yes Allergies: Coded Allergies: CEPHALEXIN (Unverified Allergy, Unknown, 02/24/14) SULFAMETHOXAZOLE (Unverified Allergy, Unknown, 02/24/14) TRIMETHOPRIM (Unverified Allergy, Unknown, 02/24/14) Subjective Medicine follow up for acute resp failure, PAD, right heel infected DFU, ESRD. Remains on vent. No new issues per nursing. Objective Last 24 Hour Vital Signs Date Time Temp Pulse Resp B/P (MAP) Pulse Ox O2 Delivery O2 Flow Rate FiO2 12/24/18 09:06 68 22 30 12/24/18 08:37 67 113/60 12/24/18 08:00 30 12/24/18 08:00 Mechanical Ventilator 12/24/18 08:00 97.7 67 22 113/60 (77) 97 12/24/18 07:26 71 12/24/18 07:23 71 23 30 12/24/18 06:00 Mechanical Ventilator 12/24/18 06:00 152/74 12/24/18 05:27 71 23 30 12/24/18 04:00 30 12/24/18 04:00 Mechanical Ventilator 12/24/18 04:00 98.6 67 20 146/93 (110) 96 12/24/18 03:43 65 12/24/18 03:14 65 22 30 12/24/18 01:05 73 22 30 12/24/18 00:00 98.0 72 20 152/74 (100) 95 12/24/18 00:00 Mechanical Ventilator 12/23/18 23:36 74 12/23/18 23:29 76 19 30 12/23/18 21:18 66 22 30 12/23/18 20:47 66 132/71 12/23/18 20:00 Mechanical Ventilator 12/23/18 20:00 30 12/23/18 20:00 98.1 66 20 132/71 (91) 96 12/23/18 19:23 68 19 30 12/23/18 17:20 67 20 30 12/23/18 17:11 123/68 12/23/18 16:00 98.0 19 123/68 (86) 96 12/23/18 16:00 Mechanical Ventilator 12/23/18 16:00 68 12/23/18 16:00 30 12/23/18 15:43 72 20 98 12/23/18 14:55 68 22 30 12/23/18 13:25 65 19 30 12/23/18 12:00 30 12/23/18 12:00 97.8 72 21 92/40 (57) 96 12/23/18 12:00 71 12/23/18 12:00 Mechanical Ventilator 12/23/18 11:43 100 12/23/18 11:00 78 24 Intake and Output 12/23/18 12/24/18 18:59 06:59 Intake Total 605 ml 540 ml Output Total 2000 ml Balance -1395 ml 540 ml Free Water 110 ml Tube Feeding 495 ml 540 ml Hemodialysis UF 2000 ml Height (Feet): 5 Height (Inches): 4.00 Weight (Pounds): 240 General Appearance: lethargic Cardiovascular: normal rate, regular rhythm Respiratory/Chest: lungs clear, normal breath sounds Abdomen: non tender, soft Dennis Branham MD December 24, 2018 10:57
--- NOTE | 2018-12-24 11:34 | Podiatric Progress Note ---
Assessment/Plan Patient Gregg Restrepo is a 68 year old male who was admitted on Oct 31, 2018 at 19:13 with Assessment/Plan A: R heel ulceration, necrotic, painful Hep C , s/p Liver transplant CAD, s/p CABG Cellulitis of ABD DM Elevated Troponin. P: - Pt seen and evaluated. - Spoke with son over phone, agreed to consent for Right heel excisional debridement, removal of all non-viable tissue and application of wound Vac therapy. - Procedure details: Attention was directed to Right plantar heel ulceration, wound base was noted to subQ level with fibrotic tissue noted, minimal drainage. Deep wound Cx was obtained sent for culture and sensitivity. Using sterile technique, excisional debridement was performed using curette and removal of fibrotic tissue was performed. Post debridement healthy bleeding was noted to ulceration. Ulcer was flushed with Normal Saline. Sterile betadine dressing was applied until wound Vac is applied. - Order submitted for wound vac, apply at 125mmHg, Change Q72 hours. - NWB to RLE. - Cont care per primary team / specialists. - Podiatry will con to monitor. Subjective Reason for consult R heel ulceration. Procedure Performed Right heel debridement to level of subQ. Allergies: Coded Allergies: CEPHALEXIN (Unverified Allergy, Unknown, 02/24/14) SULFAMETHOXAZOLE (Unverified Allergy, Unknown, 02/24/14) TRIMETHOPRIM (Unverified Allergy, Unknown, 02/24/14) Subjective Pt seen bedside, on trach. Non-verbal. Objective Exam Last 24 Hour Vital Signs Date Time Temp Pulse Resp B/P (MAP) Pulse Ox O2 Delivery O2 Flow Rate FiO2 12/24/18 11:05 69 23 30 12/24/18 09:06 68 22 30 12/24/18 08:37 67 113/60 12/24/18 08:00 30 12/24/18 08:00 Mechanical Ventilator 12/24/18 08:00 97.7 67 22 113/60 (77) 97 12/24/18 07:26 71 12/24/18 07:23 71 23 30 12/24/18 06:00 Mechanical Ventilator 12/24/18 06:00 152/74 12/24/18 05:27 71 23 30 12/24/18 04:00 30 12/24/18 04:00 Mechanical Ventilator 12/24/18 04:00 98.6 67 20 146/93 (110) 96 12/24/18 03:43 65 12/24/18 03:14 65 22 30 12/24/18 01:05 73 22 30 12/24/18 00:00 98.0 72 20 152/74 (100) 95 12/24/18 00:00 Mechanical Ventilator 12/23/18 23:36 74 12/23/18 23:29 76 19 30 12/23/18 21:18 66 22 30 12/23/18 20:47 66 132/71 12/23/18 20:00 Mechanical Ventilator 12/23/18 20:00 30 12/23/18 20:00 98.1 66 20 132/71 (91) 96 12/23/18 19:23 68 19 30 12/23/18 17:20 67 20 30 12/23/18 17:11 123/68 12/23/18 16:00 98.0 19 123/68 (86) 96 12/23/18 16:00 Mechanical Ventilator 12/23/18 16:00 68 12/23/18 16:00 30 12/23/18 15:43 72 20 98 12/23/18 14:55 68 22 30 12/23/18 13:25 65 19 30 12/23/18 12:00 30 12/23/18 12:00 97.8 72 21 92/40 (57) 96 12/23/18 12:00 71 12/23/18 12:00 Mechanical Ventilator 12/23/18 11:43 100 Microbiology Date/Time Source Procedure Growth Status 11/14/18 15:30 Blood Blood Culture - Final NO GROWTH AFTER 5 DAYS Complete 11/12/18 12:13 Pleural Fluid Fungal Culture - Final Complete 11/12/18 12:13 Pleural Fluid Fungal Culture 1 - Final Complete 10/31/18 20:39 Wound Gram Stain - Final Complete 10/31/18 20:39 Wound Culture - Final Staphylococcus Aureus - Mrsa Complete 10/31/18 21:00 Nasal Nares MRSA Culture - Final Staphylococcus Aureus - Mrsa Complete 11/30/18 17:33 Stool Clostridium difficile Toxin Assay - Final Complete 12/08/18 01:00 Abdomen Gram Stain - Final Complete 12/08/18 01:00 Wound Culture - Final Pseudomonas Aeruginosa Complete Exam Narrative Foused B/L LE: Right foot: pulses +2/4 DP/PT , ulceration noted to plantar posterior heel, approx 2.5 cm x 2.5 cm x UTD. Wound base is fibrotic, larry-wound margins are WNL , (+) Pain upon palpation. Serous drainage is noted. No increase in temp differential, minimal edema and erythema is noted. Angel Parada DPM December 24, 2018 11:34
[2018-12-24 12:00] VITALS: BP 156/80
--- NOTE | 2018-12-24 12:26 | General Progress Note ---
Assessment/Plan Assessment/Plan: Assessment and Recs: # Coagulopathy likely secondary to decreased Vitk dependent cofactors (high INR , PT) --> monitor closely for any evidence of bleeding. Currently is on eliquis --> VIT K on prn basis sq can be administered ==> recently has improved inr 1.2-->1.1-->1.2 # Anemia of chronic disease due to underlying chronic medical issues, multifactorial as well as kidney disease --> Anemia workup has been ordered, rule out gi bleed, seen by gi, also reviewed w/u --> HAS BEEN reordered since refusing --> No evidence of hemolysis is noted, peripheral smear has been reviewed. --> Epogen can be consider if hgb downtrends --> Medications have been reviewed --> evaluate with Gi team prn --> transfuse if hgb is < 7 (will trend CBC daily) ==> hgb trend 11.2-->10.9-->10.8-->10.7-->10.2-->9.7-->9.7-->8.5-->9 # Failure to thrive is likely related to poor overall status, poor functional status --> with multiple decub ulcerations that are noted, seen by id/surgery --> s/p trach as well --> cea is wnl # Acute respiratory failure is now s/p trach to vent --> as per surgery recs # Ground glass opacities present on imaging of lung --> with pleural effusions, s/p drainage at this time --> no evidence for malignancy is noted --> as per pulm # Pleural effusion --> s/p thoracentesis # Hyperkalemia --> kayxelate on prn basis per renal # Renal failure --> per renal recs, appreciated --> getting hd as per schedule # Altered level of consciousness ==> currently as per baseline # PAD off heparin gtt and now on eliquis --> per vasc and cards --> 12/22 s/p right leg angiogram with intervention --> on eliquis, continue The timing of this note does not necessarily reflect the time of the patient was seen. Greatly appreciate consultation! Subjective Constitutional: Denies: no symptoms, chills, diaphoresis, fever, malaise, weakness, other HEENT: Denies: no symptoms, eye pain, blurred vision, tearing, double vision, ear pain, ear discharge, nose pain, nose congestion, throat pain, throat swelling, mouth pain, mouth swelling, other Cardiovascular: Denies: no symptoms, chest pain, edema, irregular heart rate, lightheadedness, palpitations, syncope, other Gastrointestinal/Abdominal: Denies: no symptoms, abdomen distended, abdominal pain, black stools, tarry stools, blood in stool, constipated, diarrhea, difficulty swallowing, nausea, poor appetite, poor fluid intake, rectal bleeding , vomiting, other Genitourinary: Denies: no symptoms, burning, discharge, frequency, flank pain, hematuria, incontinence, pain, urgency, other 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: Denies: no symptoms, anxiety, depressed, emotional problems, headache, numbness, paresthesia, pre-existing deficit, seizure, tingling, tremors, weakness, other Endocrine: Denies: no symptoms, excessive sweating, flushing, intolerance to cold, intolerance to heat, increased hunger, increased thirst, increased urine, unexplained weight gain, unexplained weight loss, other Allergies: Coded Allergies: CEPHALEXIN (Unverified Allergy, Unknown, 02/24/14) SULFAMETHOXAZOLE (Unverified Allergy, Unknown, 02/24/14) TRIMETHOPRIM (Unverified Allergy, Unknown, 02/24/14) Subjective 11/30: comfortable, on abx, no complaints, on t-piece 12/01: to have hd done potentially tomorrow, is more alert/awake 12/02: no major bleeding, hgb remains approx 11, no changes 12/03: no events, breathing mildly better, hgb is improved 12/04: on vent/trach, no major changes, sr ekg 12/10: small amount of secretions, on trach/vent, no issues otherwise 12/11: no major issues, no complaints, labs reviewed, no sig changes 12/13: no events to report, no fevers or chills, awaiting placement 12/14: no changes, no major events to report, no fevers or chills 12/15: pending placement, getting gt feeds and hd as per renal 12/16: labs have been reviewed, cbc noted, no changes 5/2: no events, no fevers, no cp, hgb remains stable 12/18: restarted on heparin gtt, seen by pulm, cards 12/20: continues to be on heparin gtt, no bleeding reported, no f/c 12/21: hd for today, no fevers or chils, off hep gtt on eliquis 12/22: to get hd tomorrow, today is s/p right leg angiogram with intervention 12/23: hgb remins stable, no fevers or chills reported 12/24: no events, no bleeding, vitals reviewed, cbc stable Objective Last 24 Hour Vital Signs Date Time Temp Pulse Resp B/P (MAP) Pulse Ox O2 Delivery O2 Flow Rate FiO2 12/24/18 12:00 30 12/24/18 12:00 Mechanical Ventilator 12/24/18 11:05 69 23 30 12/24/18 09:06 68 22 30 12/24/18 08:37 67 113/60 12/24/18 08:00 30 12/24/18 08:00 Mechanical Ventilator 12/24/18 08:00 97.7 67 22 113/60 (77) 97 12/24/18 07:26 71 12/24/18 07:23 71 23 30 12/24/18 06:00 Mechanical Ventilator 12/24/18 06:00 152/74 12/24/18 05:27 71 23 30 12/24/18 04:00 30 12/24/18 04:00 Mechanical Ventilator 12/24/18 04:00 98.6 67 20 146/93 (110) 96 12/24/18 03:43 65 12/24/18 03:14 65 22 30 12/24/18 01:05 73 22 30 12/24/18 00:00 98.0 72 20 152/74 (100) 95 12/24/18 00:00 Mechanical Ventilator 12/23/18 23:36 74 12/23/18 23:29 76 19 30 12/23/18 21:18 66 22 30 12/23/18 20:47 66 132/71 12/23/18 20:00 Mechanical Ventilator 12/23/18 20:00 30 12/23/18 20:00 98.1 66 20 132/71 (91) 96 12/23/18 19:23 68 19 30 12/23/18 17:20 67 20 30 12/23/18 17:11 123/68 12/23/18 16:00 98.0 19 (86) 96 12/23/18 16:00 Mechanical Ventilator 12/23/18 16:00 68 12/23/18 16:00 30 12/23/18 15:43 72 20 98 12/23/18 14:55 68 22 30 12/23/18 13:25 65 19 30 Intake and Output 12/23/18 12/24/18 18:59 06:59 Intake Total 605 ml 540 ml Output Total 2000 ml Balance -1395 ml 540 ml Free Water 110 ml Tube Feeding 495 ml 540 ml Hemodialysis UF 2000 ml Height (Feet): 5 Height (Inches): 4.00 Weight (Pounds): 240 Objective PE General Appearance: mild distress, moderate distress Lines, tubes and drains: peripheral HEENT: EOMI, thrush, tonsils swollen ++trach Neck: normal inspection Respiratory/Chest: decreased breath sounds, accessory muscle use Cardiovascular/Chest: tachycardia Abdomen: soft, no organomegaly, no mass, ++ peg Extremities: other Skin Exam: warm/dry, rash Neurologic: alert, responsive Zacarias Khoury MD December 24, 2018 12:26
[2018-12-24 16:00] VITALS: BP 118/55
--- NOTE | 2018-12-24 17:48 | Infectious Diseases Prog Note ---
Assessment/Plan Problems: (1) G-tube site cellulitis Assessment & Plan: improved, culture from the G tube site grew pseudomonas , S /P ciprofloxacin for 7 days , continue local care as per GI. keep area clean and dry . may need tube change if continue to leak the feeding tube materials (2) Thrush, oral Assessment & Plan: continue local nystatin as needed , S/P micafungin for three weeks empirically (3) HCV antibody positive Assessment & Plan: no evidence of active infection, with undetectable viral load , suspect due to previous infection , cleared, S/P liver transplant . (4) Foot ulcer Assessment & Plan: in diabetic patient , with MRSA , S/P vancomycin treatment with HD for two weeks , had another vascular eval today with revascularization to the right leg , S/P ulcer resection by car parker today . bone scan ruled out osteomyelitis of the heel . continue local wound care as per car parker . (5) DM (diabetes mellitus) Assessment & Plan: recommend tight glycemic control to keep blood glucose between 100-140 (6) CHF (congestive heart failure) Assessment & Plan: on HD , renal is following, monitor daily weight (7) Severe tongue swelling Assessment & Plan: improving , s/p tracheostomy to protect his airway since respiratory status worsened . now improving, pulmonary is following (8) Pleural effusion Assessment & Plan: recurrent on the right, with lung collapse , S/P thoracentesis X2 with removal of 1.5 cc of clear fluids. PREVIOUS culture were negative with negative cytology Assessment/Plan will continue to monitor patient on daily basis and make recommendations as necessary since he is high risk for recurrent infection Subjective Constitutional: Reports: no symptoms HEENT: Reports: no symptoms Respiratory: Reports: no symptoms Breasts: Reports: no symptoms Cardiovascular: Reports: no symptoms Gastrointestinal/Abdominal: Reports: no symptoms Genitourinary: Reports: no symptoms Neurologic: Reports: no symptoms Psychiatric: Reports: no symptoms Skin: Reports: no symptoms Endocrine: Reports: no symptoms Hematologic: Reports: no symptoms Musculoskeletal: Reports: pain Allergies: Coded Allergies: CEPHALEXIN (Unverified Allergy, Unknown, 02/24/14) SULFAMETHOXAZOLE (Unverified Allergy, Unknown, 02/24/14) TRIMETHOPRIM (Unverified Allergy, Unknown, 02/24/14) Subjective he was comfortable, awake and alert, lying in bed, no tongue swelling , responsive, no fever or chills, no significant secretions , no SOB . has no thrush on his tongue Objective Vital Signs Last 24 Hour Vital Signs Date Time Temp Pulse Resp B/P (MAP) Pulse Ox O2 Delivery O2 Flow Rate FiO2 12/24/18 17:42 156/80 12/24/18 17:13 69 23 30 12/24/18 16:00 30 12/24/18 16:00 Mechanical Ventilator 12/24/18 15:09 71 12/24/18 14:46 68 21 30 12/24/18 13:06 73 29 30 12/24/18 12:04 73 12/24/18 12:00 97.7 72 24 156/80 (105) 98 12/24/18 12:00 30 12/24/18 12:00 Mechanical Ventilator 12/24/18 11:05 69 23 30 12/24/18 09:06 68 22 30 12/24/18 08:37 67 113/60 12/24/18 08:00 30 12/24/18 08:00 Mechanical Ventilator 12/24/18 08:00 97.7 67 22 113/60 (77) 97 12/24/18 07:26 71 12/24/18 07:23 71 23 30 12/24/18 06:00 Mechanical Ventilator 12/24/18 06:00 152/74 12/24/18 05:27 71 23 30 12/24/18 04:00 30 12/24/18 04:00 Mechanical Ventilator 12/24/18 04:00 98.6 67 20 146/93 (110) 96 12/24/18 03:43 65 12/24/18 03:14 65 22 30 12/24/18 01:05 73 22 30 12/24/18 00:00 98.0 72 20 152/74 (100) 95 12/24/18 00:00 Mechanical Ventilator 12/23/18 23:36 74 12/23/18 23:29 76 19 30 12/23/18 21:18 66 22 30 12/23/18 20:47 66 132/71 12/23/18 20:00 Mechanical Ventilator 12/23/18 20:00 30 12/23/18 20:00 98.1 66 20 132/71 (91) 96 12/23/18 19:23 68 19 30 Height (Feet): 5 Height (Inches): 4.00 Weight (Pounds): 240 General Appearance: WD/WN, no acute distress HEENT: normocephalic, atraumatic, anicteric, mucous membranes moist, PERRL, EOMI, pharynx normal, supple, no JVD Respiratory/Chest: chest wall non-tender, lungs clear, no respiratory distress , no accessory muscle use, decreased breath sounds, crackles/rales Cardiovascular: normal peripheral pulses, normal rate, regular rhythm, no gallop/murmur, no JVD Abdomen: normal bowel sounds, soft, non tender, no organomegaly, non distended , no mass, no scars Genitourinary: normal external genitalia Extremities: no cyanosis, no clubbing Skin: no rash, no lesions, no ulcers 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: blanket folder 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 normal, alert, responsive Lymphatic: no neck adenopathy, no groin adenopathy Musculoskeletal: normal muscle bulk, no effusion Current Medications Medications (Trade) Dose Ordered Sig/Aleks Route PRN Reason Start Time Stop Time Status Last Admin Dose Admin Acetaminophen (Tylenol) 650 mg Q6H PRN GT Mild Pain/Temp > 100.5 12/21/18 16:00 01/20/19 15:59 12/21/18 18:39 Apixaban (Eliquis) 2.5 mg BID ORAL 12/21/18 18:00 01/20/19 17:59 12/24/18 17:41 Bacitracin (Bacitracin) 1 applic EVERY 12 HOURS TOPIC 12/11/18 21:00 01/06/19 17:59 12/24/18 08:38 Carvedilol (Coreg) 3.125 mg EVERY 12 HOURS GT 12/21/18 21:00 01/03/19 20:59 12/24/18 08:37 Clotrimazole (Lotrimin) 1 applic BID TOPIC 12/07/18 18:00 01/06/19 17:59 12/24/18 17:42 Collagenase (Santyl) 1 applic DAILY TOPIC 12/19/18 09:00 01/18/19 08:59 12/24/18 08:38 Dextrose (Dextrose 50%) 25 ml Q30M PRN IV Hypoglycemia 12/01/18 19:30 12/31/18 19:29 Dextrose (Dextrose 50%) 50 ml Q30M PRN IV Hypoglycemia 12/01/18 19:30 12/31/18 19:29 Escitalopram Oxalate (Lexapro) 10 mg DAILY GT 12/18/18 09:00 01/17/19 08:59 12/24/18 08:38 Hydralazine HCl (Apresoline) 10 mg Q6H PRN GT For High Blood Pressure 12/03/18 16:45 01/02/19 16:44 12/07/18 04:47 Hydromorphone HCl (Dilaudid) 1 mg Q4H PRN ORAL pain 4-12/22/18 12:00 12/28/18 15:59 12/24/18 15:40 Insulin Aspart (NovoLOG) EVERY 6 HOURS SUBQ 12/02/18 00:00 12/31/18 20:59 12/24/18 11:45 Midodrine (Pro-Amatine) 10 mg THREE TIMES A DAY GT 12/19/18 13:00 01/18/19 12:59 12/24/18 17:41 Mirtazapine (Remeron) 15 mg BEDTIME GT 12/21/18 21:00 01/20/19 20:59 12/23/18 20:46 Nitroglycerin (Nitro-Bid) 1 inch TID@0600,1200,1800 TOPIC 12/07/18 12:00 01/06/19 11:59 12/24/18 17:42 Tacrolimus (Prograf) 2 mg SuTuThSa@0900,2100 ORAL 12/17/18 21:00 01/16/19 20:59 12/24/18 09:05 Francois Landis M.D. December 24, 2018 17:48
--- NOTE | 2018-12-24 17:58 | Neurology Progress Note ---
Interim History Interim History Interim History Mr. Restrepo feels unwell. He now has a wound vac on his right heel which is more painful. His spirits are low. The right upper extremity feels about the same. He was unable to sleep well last night. He is breathing well. He was unable to wan off the ventilator today. He feels generally weaker. The mind has not been clear. The right upper extremity is still swollen but less painful. He denies any new neurologic symptoms. Review of Systems Neuro Review of Systems Benign. Objective Physical Exam Last Vital Signs Date Time Temp Pulse Resp B/P (MAP) Pulse Ox O2 Delivery O2 Flow Rate FiO2 12/24/18 17:42 156/80 12/24/18 17:13 69 23 30 12/24/18 16:00 Mechanical Ventilator 12/24/18 12:00 97.7 98 12/16/18 13:50 12.0 Neurologic Exam Objective PHYSICAL EXAMINATION: GENERAL: He is a well-developed and well-nourished, pleasant gentleman, lying in bed connected to a ventilator via a tracheostomy. HEAD: Normocephalic and atraumatic. EENT: Examination benign. NECK: No neck rigidity was observed. He did have a tracheostomy. NEUROLOGICAL EXAMINATION: MENTAL STATUS EXAMINATION: He was awake and alert. He was fully oriented. He was able to recall 3/3 words immediately and was able to remember them in 1 and 3 minutes. He was able to remember presidents Trump and Obama. SPEECH: Could not be tested, but he was able to mouth words relatively well. LANGUAGE: He was able to comprehend and express himself relatively well. CRANIAL NERVES EXAMINATION: II: The visual mckeon were intact to confrontation testing. III, IV & : The external ocular movements were full and the pupils 3 mm in diameter, equal, round, regular, and reactive sluggishly to light. V: He had normal facial sensations, and the temporales, masseters, and pterygoids functioned normally. VII: He had normal facial expressions and no facial asymmetry. VIII: Hearing was decreased bilaterally with worse hearing on the left side compared to the right. IX: The palate moved symmetrically on phonation. X: Could not be tested. XI: The sternocleidomastoids and trapezii functioned normally. XII: The tongue was in the midline without any fasciculations or atrophy. MOTOR SYSTEM: The tone was normal in all four extremities. Examination of muscle mass revealed generalized muscle wasting. Examination of power revealed G 5/5 power except for G 4+/5 power in the iliopsoas muscles bilaterally, and G 4/5 in the right ankle and toes. Power in the right upper extremity was limited by pain. Power in the right foot was also limited by pain. SENSORY EXAMINATION: He had intact sensations to light touch. Other sensory modalities could not be tested adequately. REFLEXES: 1+ and bilaterally symmetrical at the biceps, triceps, brachioradialis , and knees, 0 at both ankles. The plantar responses were flexor bilaterally. COORDINATION: He performed well on [id number] testing. STANCE & GAIT: Were deferred. Impression/Recommendations Diagnostic Impression 1. Mr. Gregg Restrepo is a 68-year-old, right-handed, gentleman with past history of multiple medical problems including hypertension, diabetes mellitus, end-stage renal disease for which he is hemodialysis dependent, prior episodes of sepsis, and prior episodes of encephalopathy, who was admitted to [facility] on October 31, 2018. Following that, he has had a stormy hospital course including pneumonia and sepsis, right foot infection, respiratory failure for which he has needed tracheostomy and in addition he has exhibited an alteration in his mental state with some waxing and waning of his mental state. 2. He feels unwell. He now has a wound vac on his right heel which is more painful. His spirits are low. The right upper extremity feels about the same. He was unable to sleep well last night. He is breathing well. He was unable to wan off the ventilator today. He feels generally weaker. The mind has not been clear. The right upper extremity is still swollen but less painful. He denies any new neurologic symptoms. 3. On neurological examination, at this time, he is fully oriented, his memory is normal. He has minimally impaired higher cognitive function. He is able to comprehend and express himself well. He does have mild G 4+/5 weakness in the iliopsoas muscles bilaterally. Power in the right upper extremity was limited by pain. Power in the right foot was also limited by pain but the weakness in the right ankle and toes is better than yesterday. He had globally diminished deep tendon reflexes with loss of ankle jerks, but no definite focal or lateralizing neurological findings. 4. His latest laboratory data on my initial evaluation revealed that he was anemic with a hemoglobin of 10.8 G. His last blood gas performed on 11/14/2018 revealed that he had a pCO2 elevated at 56.4 with a normal pO2 of 88.3 and normal pH of 7.37. His latest chemistry panel revealed that he was mildly hyponatremic with a sodium of 130, and had a chloride of 90. The BUN was elevated at 75, creatinine elevated at 7.4, glucose elevated at 156, Hemoglobin A1c elevated at 6.9%, Alkaline phosphatase elevated at 131, and ProBNP greater than 35,000. His last B12 level on 11/07/2018 was 723. His last folate on was 18.6. His last TSH on 12/06/2018 was 4.82, which is minimally elevated. 5. The CT scan of the brain performed on 11/10/2018 was benign for acute intracranial pathology. 6. The EEG done on 12/08/18 revealed left temporal dysfunction. 7. The patient's history and neurological examination are most consistent with mild multifactorial encephalopathy, which apparently waxes and wanes, but no definite focal neurological dysfunction. His encephalopathy is minimally better today. 8. He tells me that he had a brain bleed many years ago. I did review his imaging done at [facility] a few years ago and he had closed head injuries with subarachnoid and subdural blood in the past. Recommendations 1. Continue present management. 2. Continue to correct the patient's toxic metabolic imbalances. 3. Mobilize with PT/OT. 4. Consider getting ENT evaluation for worsening hearing. 5. Observe closely. Pantera Cool M.D., M.S.P.H. Pantera Cool MD December 24, 2018 17:58
[2018-12-24 20:00] VITALS: BP 147/79
[2018-12-25] VITALS: BP 144/81
--- NOTE | 2018-12-25 | Progress Note ---
DATE: 12/24/2018 SUBJECTIVE: The patient is not doing well today, presents with depressed mood, low energy, unable to sleep last night, was not on . MENTAL STATUS EXAMINATION: The patient is alert and oriented to self, place, and situation he is in. Mood is depressed. Affect is constricted. Congruent mood. Thought process is concrete. Thought content, no suicidal or homicidal ideations. No auditory or visual hallucinations. Memory is impaired. Insight and judgment is fair. ASSESSMENT: 1. Anxiety disorder. 2. Depressive disorder. PLAN: 1. The patient will be continued on Lexapro. 2. Continue Remeron 15 mg at bedtime. Jeffrey Lala M.D. DR: Dianne JOB#: [id number] CC:
[2018-12-25] MEDS: NovoLOG Insulin Flexpen SUBQ SCH ×5 (00:41→23:42)
[2018-12-25] MEDS: Acetaminophen 650mg/20.3ml GT PRN (00:42)
[2018-12-25] MEDS: HYDROmorphone 2mg tab ORAL PRN ×2 (04:07→23:31)
[2018-12-25] MEDS: Nitroglycerin 2% oint pkt TOPIC SCH ×3 (06:00→17:41)
[2018-12-25] MEDS: Eliquis 2.5mg tablet ORAL SCH ×2 (10:16→17:39)
[2018-12-25] MEDS: Midodrine 10mg tab GT SCH ×3 (10:16→17:47)
[2018-12-25] MEDS: Bacitracin Oint UD TOPIC SCH ×2 (10:23→20:19)
--- NOTE | 2018-12-25 10:33 | General Progress Note ---
Assessment/Plan Assessment/Plan: #Right heel diabetic foot ulcer without osteomyelitis #PAD -seen by Podiatry and ID -s/p Vanco x 2 weeks during HD -s/p selective RLE angio with SFA/pop stenting -continue Eliquis #Acute Resp hypercapnic failure s/p trach #Angioedema -continue trach care -Remains vent-dependant, breathing trials ongoing -Pulm following #End-stage renal disease, on dialysis -HD per Nephrology #Coronary artery disease -continue ASA, Coreg, atorva -cardiology following #Type 2 DM -ISS #Acute metabolic encephalopathy -continue supportive care -Neurology following #history of chronic HCV infection #history of liver transplant -continue Prograf -GI following #Dysphagia S/p PEG with PEG site cellulitis -s/p antibiotics per ID and GI -continue local wound care Subjective Date patient seen: December 25, 2018 Time patient seen: 09:15 ROS Limited/Unobtainable: Yes Allergies: Coded Allergies: CEPHALEXIN (Unverified Allergy, Unknown, 02/24/14) SULFAMETHOXAZOLE (Unverified Allergy, Unknown, 02/24/14) TRIMETHOPRIM (Unverified Allergy, Unknown, 02/24/14) Subjective Medicine follow up for acute resp failure, PAD, right heel infected DFU, ESRD. Remains on vent. No new issues per nursing. Objective Last 24 Hour Vital Signs Date Time Temp Pulse Resp B/P (MAP) Pulse Ox O2 Delivery O2 Flow Rate FiO2 12/25/18 09:13 63 21 30 30 12/25/18 08:00 Mechanical Ventilator 12/25/18 08:00 30 12/25/18 07:28 63 12/25/18 07:11 65 22 30 30 12/25/18 06:00 139/66 12/25/18 05:08 66 22 30 30 12/25/18 04:00 30 12/25/18 04:00 Mechanical Ventilator 12/25/18 03:33 67 12/25/18 03:19 71 23 30 30 12/25/18 01:06 70 23 30 30 12/25/18 00:00 Mechanical Ventilator 12/25/18 00:00 97.7 69 22 144/81 (102) 98 12/24/18 23:33 97 22 30 30 12/24/18 23:31 69 12/24/18 22:13 66 147/79 12/24/18 21:12 66 20 30 30 12/24/18 20:00 98.1 68 18 147/79 (101) 98 12/24/18 20:00 Mechanical Ventilator 12/24/18 20:00 30 12/24/18 20:00 68 12/24/18 19:19 68 20 30 30 12/24/18 17:42 156/80 12/24/18 17:13 69 23 30 12/24/18 16:00 97.9 68 22 118/55 (76) 97 12/24/18 16:00 30 12/24/18 16:00 Mechanical Ventilator 12/24/18 15:09 71 12/24/18 14:46 68 21 30 12/24/18 13:06 73 29 30 12/24/18 12:04 73 12/24/18 12:00 97.7 72 24 156/80 (105) 98 12/24/18 12:00 30 12/24/18 12:00 Mechanical Ventilator 12/24/18 11:05 69 23 30 Intake and Output 12/24/18 12/25/18 19:00 07:00 Intake Total 920 ml 1045 ml Balance 920 ml 1045 ml Free Water 200 ml 550 ml Tube Feeding 720 ml 495 ml # Bowel Movements 1 5 Height (Feet): 5 Height (Inches): 4.00 Weight (Pounds): 243 General Appearance: no apparent distress, alert Neck: supple Cardiovascular: normal rate Respiratory/Chest: lungs clear, normal breath sounds Dennis Branham MD December 25, 2018 10:32
[2018-12-25 12:00] VITALS: BP 115/72
--- NOTE | 2018-12-25 12:07 | Cardiac Electrophysiology PN ---
Assessment/Plan Assessment/Plan 1. Troponin leak due to renal failure. No CP or SOB 2. S/P CABG. On Coreg 3.125 bid, aspirin 162 and Lipitor 3. NSVT in setting of old IN and CABG. EF 55%. No Syncope. Continue Coreg 4. Congestive heart failure. On hemodialysis 5. S/P Right sided [employer]onic dual chamber pacemaker with Nl Fx. 6. End-stage renal disease, on hemodialysis per Dr. Stevens S/P Fistulogram by Dr. Salmeron 7. Multilevel AOD LE's with non-healing Right foot ulcer. Had abdominal angiogram per Dr Salmeron Antibiotic per Dr. Landis. FU by Dr. Huizar S/P peripheral intervention by Dr. Salmeron 12/22/18 Right foot on WoundVac 8. History of liver transplant on Prograf 9. Respiratory failure, S/P tracheostomy. 10. Pleural effusion. FU Dr. Mendoza 11. Dysphagia, S/P PEG 12. Low BP, continue Midodrine 10 tid XIOMARA RN Subjective Subjective Comfortable in NAD. Still on the Vent . Right foot on WoundVac Objective Last 24 Hour Vital Signs Date Time Temp Pulse Resp B/P (MAP) Pulse Ox O2 Delivery O2 Flow Rate FiO2 12/25/18 11:25 100 12/25/18 10:52 70 23 30 30 12/25/18 09:13 63 21 30 30 12/25/18 08:00 Mechanical Ventilator 12/25/18 08:00 30 12/25/18 07:28 63 12/25/18 07:11 65 22 30 30 12/25/18 06:00 139/66 12/25/18 05:08 66 22 30 30 12/25/18 04:00 30 12/25/18 04:00 Mechanical Ventilator 12/25/18 03:33 67 12/25/18 03:19 71 23 30 30 12/25/18 01:06 70 23 30 30 12/25/18 00:00 Mechanical Ventilator 12/25/18 00:00 97.7 69 22 144/81 (102) 98 12/24/18 23:33 97 22 30 30 12/24/18 23:31 69 12/24/18 22:13 66 147/79 12/24/18 21:12 66 20 30 30 12/24/18 20:00 98.1 68 18 147/79 (101) 98 12/24/18 20:00 Mechanical Ventilator 12/24/18 20:00 30 12/24/18 20:00 68 12/24/18 19:19 68 20 30 30 12/24/18 17:42 156/80 12/24/18 17:13 69 23 30 12/24/18 16:00 97.9 68 22 118/55 (76) 97 12/24/18 16:00 30 12/24/18 16:00 Mechanical Ventilator 12/24/18 15:09 71 12/24/18 14:46 68 21 30 12/24/18 13:06 73 29 30 Intake and Output 12/24/18 12/25/18 19:00 07:00 Intake Total 920 ml 1045 ml Balance 920 ml 1045 ml Free Water 200 ml 550 ml Tube Feeding 720 ml 495 ml # Bowel Movements 1 5 Microbiology Date/Time Source Procedure Growth Status 12/24/18 12:00 Ankle Right Gram Stain - Final Resulted 12/24/18 12:00 Ankle Right Wound Culture - Preliminary Resulted Objective HEAD AND NECK: No JVD. Tracheostomy intact LUNGS: Clear CARDIOVASCULAR: Irregular S1 and S2 with no gallop. Sternotomy is intact Pacemaker in the right subclavian ABDOMEN: Soft.PEG in place EXTREMITIES: 1+ pitting edema. Right heel in dressing and connected to WoundVac Shivam Sharpe MD December 25, 2018 12:07
--- NOTE | 2018-12-25 12:29 | General Progress Note ---
Assessment/Plan Problem List: (1) Transplant ICD Codes: Z94.9 - Transplanted organ and tissue status, unspecified SNOMED: 627582886 (2) HTN (hypertension) ICD Codes: I10 - Essential (primary) hypertension SNOMED: 39660597 (3) Pacemaker ICD Codes: Z95.0 - Presence of cardiac pacemaker SNOMED: 537274756 (4) CHF (congestive heart failure) ICD Codes: I50.9 - Heart failure, unspecified SNOMED: 22041874 (5) DM (diabetes mellitus) ICD Codes: E11.9 - Type 2 diabetes mellitus without complications SNOMED: 16451774 (6) Foot ulcer ICD Codes: L97.509 - Non-pressure chronic ulcer of other part of unspecified foot with unspecified severity SNOMED: 04008962 Qualifiers: Qualified Codes: L97.511 - Non-pressure chronic ulcer of other part of right foot limited to breakdown of skin (7) ESRD (end stage renal disease) on dialysis ICD Codes: N18.6 - End stage renal disease; Z99.2 - Dependence on renal dialysis SNOMED: 468804353 Assessment/Plan: History of liver transplant, currently on Prograf C. difficile negative status post tracheostomy and PEG Infected G-tube site, fu ID recs would care cx >> GRAM NEGATIVE BACILLUS GT site care BID/prn topical abx around GT site per ID HD per nephro cont tacrolimus prn transfusions ppi zofran prn bowel regimen follow labs supportive care Subjective ROS Limited/Unobtainable: Yes Allergies: Coded Allergies: CEPHALEXIN (Unverified Allergy, Unknown, 02/24/14) SULFAMETHOXAZOLE (Unverified Allergy, Unknown, 02/24/14) TRIMETHOPRIM (Unverified Allergy, Unknown, 02/24/14) Subjective he pulled his NGT again Objective Last 24 Hour Vital Signs Date Time Temp Pulse Resp B/P (MAP) Pulse Ox O2 Delivery O2 Flow Rate FiO2 12/25/18 12:00 40 12/25/18 12:00 Mechanical Ventilator 12/25/18 11:55 85 30 40 30 12/25/18 11:25 100 12/25/18 11:25 40 12/25/18 10:52 70 23 40 30 12/25/18 09:13 63 21 40 30 12/25/18 08:00 Mechanical Ventilator 12/25/18 08:00 30 12/25/18 07:28 63 12/25/18 07:11 65 22 30 30 12/25/18 06:00 139/66 12/25/18 05:08 66 22 30 30 12/25/18 04:00 30 12/25/18 04:00 Mechanical Ventilator 12/25/18 03:33 67 12/25/18 03:19 71 23 30 30 12/25/18 01:06 70 23 30 30 12/25/18 00:00 Mechanical Ventilator 12/25/18 00:00 97.7 69 22 144/81 (102) 98 12/24/18 23:33 97 22 30 30 12/24/18 23:31 69 12/24/18 22:13 66 147/79 12/24/18 21:12 66 20 30 30 12/24/18 20:00 98.1 68 18 147/79 (101) 98 12/24/18 20:00 Mechanical Ventilator 12/24/18 20:00 30 12/24/18 20:00 68 12/24/18 19:19 68 20 30 30 12/24/18 17:42 156/80 12/24/18 17:13 69 23 30 12/24/18 16:00 97.9 68 22 118/55 (76) 97 12/24/18 16:00 30 12/24/18 16:00 Mechanical Ventilator 12/24/18 15:09 71 12/24/18 14:46 68 21 30 12/24/18 13:06 73 29 30 Intake and Output 12/24/18 12/25/18 18:59 06:59 Intake Total 870 ml 1045 ml Balance 870 ml 1045 ml Free Water 150 ml 550 ml Tube Feeding 720 ml 495 ml # Bowel Movements 1 5 Height (Feet): 5 Height (Inches): 4.00 Weight (Pounds): 243 General Appearance: alert EENT: normal ENT inspection Neck: supple Cardiovascular: normal rate Respiratory/Chest: decreased breath sounds Abdomen: normal bowel sounds, non tender, soft Extremities: non-tender Jorge Escalera MD December 25, 2018 12:29
--- NOTE | 2018-12-25 12:55 | Nephrology Progress Note ---
Assessment/Plan Problem List: (1) ESRD (end stage renal disease) on dialysis (2) Foot ulcer (3) CHF (congestive heart failure) Assessment: Ej Fx 20 % (4) Pacemaker (5) Acute respiratory failure Assessment: with Co2 retention (6) G-tube site cellulitis Assessment ESRD with high K and SOB on admit Foot ulcer, likely infected High Troponin likely NSTMI Pacer , Pleural effusion s/p CABGS s/p Liver transplant Plan due dialysis today 12/23 BP low- improved on midodrine restart midodrine GT site infection, topical antibiotic Neuro note appreciated placement in process vascular esteban regarding heel ulcer per Dr Mcgill pain med change to dilaudid GT Now has tracheostomy and PEG Adjust BP meds add nitro paste TID Antibiotics by ID per cardio and ID Podiatry and Vascular surgical fu ? DC planning? Subjective ROS Limited/Unobtainable: No Objective Objective Last 24 Hour Vital Signs Date Time Temp Pulse Resp B/P (MAP) Pulse Ox O2 Delivery O2 Flow Rate FiO2 12/25/18 12:00 40 12/25/18 12:00 Mechanical Ventilator 12/25/18 12:00 97.3 69 18 115/72 (86) 98 12/25/18 11:55 85 30 40 30 12/25/18 11:25 100 12/25/18 11:25 40 12/25/18 10:52 70 23 40 30 12/25/18 09:13 63 21 40 30 12/25/18 08:00 Mechanical Ventilator 12/25/18 08:00 30 12/25/18 07:28 63 12/25/18 07:11 65 22 30 30 12/25/18 06:00 139/66 12/25/18 05:08 66 22 30 30 12/25/18 04:00 30 12/25/18 04:00 Mechanical Ventilator 12/25/18 03:33 67 12/25/18 03:19 71 23 30 30 12/25/18 01:06 70 23 30 30 12/25/18 00:00 Mechanical Ventilator 12/25/18 00:00 97.7 69 22 144/81 (102) 98 12/24/18 23:33 97 22 30 30 12/24/18 23:31 69 12/24/18 22:13 66 147/79 12/24/18 21:12 66 20 30 30 12/24/18 20:00 98.1 68 18 147/79 (101) 98 12/24/18 20:00 Mechanical Ventilator 12/24/18 20:00 30 12/24/18 20:00 68 12/24/18 19:19 68 20 30 30 12/24/18 17:42 156/80 12/24/18 17:13 69 23 30 12/24/18 16:00 97.9 68 22 118/55 (76) 97 12/24/18 16:00 30 12/24/18 16:00 Mechanical Ventilator 12/24/18 15:09 71 12/24/18 14:46 68 21 30 12/24/18 13:06 73 29 30 Intake and Output 12/24/18 12/25/18 18:59 06:59 Intake Total 870 ml 1045 ml Balance 870 ml 1045 ml Free Water 150 ml 550 ml Tube Feeding 720 ml 495 ml # Bowel Movements 1 5 Height (Feet): 5 Height (Inches): 4.00 Weight (Pounds): 243 EENT: other - trach Cardiovascular: normal rate Respiratory/Chest: decreased breath sounds Abdomen: other - PEG Objective no other change Nakul Stevens MD December 25, 2018 12:55
--- NOTE | 2018-12-25 14:09 | General Progress Note ---
Assessment/Plan Assessment/Plan: Assessment and Recs: # Coagulopathy likely secondary to decreased Vitk dependent cofactors (high INR , PT) --> monitor closely for any evidence of bleeding. Currently is on eliquis --> VIT K on prn basis sq can be administered ==> recently has improved inr 1.2-->1.1-->1.2 # Anemia of chronic disease due to underlying chronic medical issues, multifactorial as well as kidney disease --> Anemia workup has been ordered, rule out gi bleed, seen by gi, also reviewed w/u --> HAS BEEN reordered since refusing --> No evidence of hemolysis is noted, peripheral smear has been reviewed. --> Epogen can be consider if hgb downtrends --> Medications have been reviewed --> evaluate with Gi team prn --> transfuse if hgb is < 7 (will trend CBC daily) ==> hgb trend 11.2-->10.9-->10.8-->10.7-->10.2-->9.7-->9.7-->8.5-->9 # Failure to thrive is likely related to poor overall status, poor functional status --> with multiple decub ulcerations that are noted, seen by id/surgery --> s/p trach as well --> cea is wnl # Acute respiratory failure is now s/p trach to vent --> as per surgery recs # Ground glass opacities present on imaging of lung --> with pleural effusions, s/p drainage at this time --> no evidence for malignancy is noted --> as per pulm/id # Pleural effusion --> s/p thoracentesis # Hyperkalemia --> kayxelate on prn basis per renal # Renal failure --> per renal recs, appreciated --> getting hd as per schedule # Altered level of consciousness ==> currently as per baseline # PAD off heparin gtt and now on eliquis --> per vasc and cards --> 12/22 s/p right leg angiogram with intervention --> on eliquis, continue The timing of this note does not necessarily reflect the time of the patient was seen. Greatly appreciate consultation! Subjective Constitutional: Denies: no symptoms, chills, diaphoresis, fever, malaise, weakness, other HEENT: Denies: no symptoms, eye pain, blurred vision, tearing, double vision, ear pain, ear discharge, nose pain, nose congestion, throat pain, throat swelling, mouth pain, mouth swelling, other Cardiovascular: Denies: no symptoms, chest pain, edema, irregular heart rate, lightheadedness, palpitations, syncope, other Gastrointestinal/Abdominal: Denies: no symptoms, abdomen distended, abdominal pain, black stools, tarry stools, blood in stool, constipated, diarrhea, difficulty swallowing, nausea, poor appetite, poor fluid intake, rectal bleeding , vomiting, other Genitourinary: Denies: no symptoms, burning, discharge, frequency, flank pain, hematuria, incontinence, pain, urgency, other Endocrine: Denies: no symptoms, excessive sweating, flushing, intolerance to cold, intolerance to heat, increased hunger, increased thirst, increased urine, unexplained weight gain, unexplained weight loss, other Hematologic/Lymphatic: Denies: no symptoms, anemia, easy bleeding, easy bruising, other Allergies: Coded Allergies: CEPHALEXIN (Unverified Allergy, Unknown, 02/24/14) SULFAMETHOXAZOLE (Unverified Allergy, Unknown, 02/24/14) TRIMETHOPRIM (Unverified Allergy, Unknown, 02/24/14) Subjective 11/30: comfortable, on abx, no complaints, on t-piece 12/01: to have hd done potentially tomorrow, is more alert/awake 12/02: no major bleeding, hgb remains approx 11, no changes 12/03: no events, breathing mildly better, hgb is improved 12/04: on vent/trach, no major changes, sr ekg 12/10: small amount of secretions, on trach/vent, no issues otherwise 12/11: no major issues, no complaints, labs reviewed, no sig changes 12/13: no events to report, no fevers or chills, awaiting placement 12/14: no changes, no major events to report, no fevers or chills 12/15: pending placement, getting gt feeds and hd as per renal 12/16: labs have been reviewed, cbc noted, no changes 12/17: no events, no fevers, no cp, hgb remains stable 12/18: restarted on heparin gtt, seen by pulcamelia, cards 12/20: continues to be on heparin gtt, no bleeding reported, no f/c 12/21: hd for today, no fevers or chils, off hep gtt on eliquis 12/22: to get hd tomorrow, today is s/p right leg angiogram with intervention 12/23: hgb remins stable, no fevers or chills reported 12/24: no events, no bleeding, vitals reviewed, cbc stable 12/25: no events, no bleeding, on vent, hgb 9 Objective Last 24 Hour Vital Signs Date Time Temp Pulse Resp B/P (MAP) Pulse Ox O2 Delivery O2 Flow Rate FiO2 12/25/18 13:29 67 23 40 30 12/25/18 12:00 40 12/25/18 12:00 Mechanical Ventilator 12/25/18 12:00 97.3 69 18 115/72 (86) 98 12/25/18 11:55 85 30 40 30 12/25/18 11:25 100 12/25/18 11:25 40 12/25/18 10:52 70 23 40 30 12/25/18 09:13 63 21 40 30 12/25/18 08:00 Mechanical Ventilator 12/25/18 08:00 30 12/25/18 07:28 63 12/25/18 07:11 65 22 30 30 12/25/18 06:00 139/66 12/25/18 05:08 66 22 30 30 12/25/18 04:00 30 12/25/18 04:00 Mechanical Ventilator 12/25/18 03:33 67 12/25/18 03:19 71 23 30 30 12/25/18 01:06 70 23 30 30 12/25/18 00:00 Mechanical Ventilator 12/25/18 00:00 97.7 69 22 144/81 (102) 98 12/24/18 23:33 97 22 30 30 12/24/18 23:31 69 12/24/18 22:13 66 147/79 12/24/18 21:12 66 20 30 30 12/24/18 20:00 98.1 68 18 147/79 (101) 98 12/24/18 20:00 Mechanical Ventilator 12/24/18 20:00 30 12/24/18 20:00 68 12/24/18 19:19 68 20 30 30 12/24/18 17:42 156/80 12/24/18 17:13 69 23 30 12/24/18 16:00 97.9 68 22 118/55 (76) 97 12/24/18 16:00 30 12/24/18 16:00 Mechanical Ventilator 12/24/18 15:09 71 12/24/18 14:46 68 21 30 Intake and Output 12/24/18 12/25/18 18:59 06:59 Intake Total 870 ml 1045 ml Balance 870 ml 1045 ml Free Water 150 ml 550 ml Tube Feeding 720 ml 495 ml # Bowel Movements 1 5 Height (Feet): 5 Height (Inches): 4.00 Weight (Pounds): 243 Objective PE General Appearance: mild distress, moderate distress Lines, tubes and drains: peripheral HEENT: EOMI, thrush, tonsils swollen ++trach Neck: normal inspection Respiratory/Chest: decreased breath sounds, accessory muscle use Cardiovascular/Chest: tachycardia Abdomen: soft, no organomegaly, no mass, ++ peg Extremities: other Skin Exam: warm/dry, rash Neurologic: alert, responsive Zacarias Khoury MD December 25, 2018 14:09
--- NOTE | 2018-12-25 14:15 | Neurology Progress Note ---
Interim History Interim History Interim History Mr. Restrepo feels better. The right heel is less painful. His spirits are still low. The right upper extremity feels about the same. He was able to sleep a little better last night. He is breathing well. He was unable to wean off the ventilator today. He feels generally weaker. The mind has not been clear. The right upper extremity is still swollen but less painful. He denies any new neurologic symptoms. He is undergoing HD now. Review of Systems Neuro Review of Systems Benign. Objective Physical Exam Last Vital Signs Date Time Temp Pulse Resp B/P (MAP) Pulse Ox O2 Delivery O2 Flow Rate FiO2 12/25/18 13:29 67 23 40 30 12/25/18 12:00 Mechanical Ventilator 12/25/18 12:00 97.3 115/72 (86) 98 12/16/18 13:50 12.0 Neurologic Exam Objective PHYSICAL EXAMINATION: GENERAL: He is a well-developed and well-nourished, pleasant gentleman, lying in bed connected to a ventilator via a tracheostomy. HEAD: Normocephalic and atraumatic. EENT: Examination benign. NECK: No neck rigidity was observed. He did have a tracheostomy. NEUROLOGICAL EXAMINATION: MENTAL STATUS EXAMINATION: He was awake and alert. He was fully oriented. He was able to recall 3/3 words immediately and was able to remember them in 1 and 3 minutes. He was able to remember presidents Trump and Obama. SPEECH: Could not be tested, but he was able to mouth words relatively well. LANGUAGE: He was able to comprehend and express himself relatively well. CRANIAL NERVES EXAMINATION: II: The visual mckeon were intact to confrontation testing. III, IV & : The external ocular movements were full and the pupils 3 mm in diameter, equal, round, regular, and reactive sluggishly to light. V: He had normal facial sensations, and the temporales, masseters, and pterygoids functioned normally. VII: He had normal facial expressions and no facial asymmetry. VIII: Hearing was decreased bilaterally with worse hearing on the left side compared to the right. IX: The palate moved symmetrically on phonation. X: Could not be tested. XI: The sternocleidomastoids and trapezii functioned normally. XII: The tongue was in the midline without any fasciculations or atrophy. MOTOR SYSTEM: The tone was normal in all four extremities. Examination of muscle mass revealed generalized muscle wasting. Examination of power revealed G 5/5 power except for G 4+/5 power in the iliopsoas muscles bilaterally, and G 4/5 in the right ankle and toes. Power in the right upper extremity was limited by pain. Power in the right foot was also limited by pain. SENSORY EXAMINATION: He had intact sensations to light touch. Other sensory modalities could not be tested adequately. REFLEXES: 1+ and bilaterally symmetrical at the biceps, triceps, brachioradialis , and knees, 0 at both ankles. The plantar responses were flexor bilaterally. COORDINATION: He performed well on [id number] testing. STANCE & GAIT: Were deferred. Impression/Recommendations Diagnostic Impression 1. Mr. Gregg Restrepo is a 68-year-old, right-handed, gentleman with past history of multiple medical problems including hypertension, diabetes mellitus, end-stage renal disease for which he is hemodialysis dependent, prior episodes of sepsis, and prior episodes of encephalopathy, who was admitted to [facility] on October 31, 2018. Following that, he has had a stormy hospital course including pneumonia and sepsis, right foot infection, respiratory failure for which he has needed tracheostomy and in addition he has exhibited an alteration in his mental state with some waxing and waning of his mental state. 2. He feels better. The right heel is less painful. His spirits are still low. The right upper extremity feels about the same. He was able to sleep a little better last night. He is breathing well. He was unable to wean off the ventilator today. He feels generally weaker. The mind has not been clear. The right upper extremity is still swollen but less painful. He denies any new neurologic symptoms. He is undergoing HD now. 3. On neurological examination, at this time, he is fully oriented, his memory is normal. He has minimally impaired higher cognitive function. He is able to comprehend and express himself well. He does have mild G 4+/5 weakness in the iliopsoas muscles bilaterally. Power in the right upper extremity was limited by pain. Power in the right foot was also limited by pain but the weakness in the right ankle and toes is better than yesterday. He had globally diminished deep tendon reflexes with loss of ankle jerks, but no definite focal or lateralizing neurological findings. 4. His latest laboratory data on my initial evaluation revealed that he was anemic with a hemoglobin of 10.8 G. His last blood gas performed on 11/14/2018 revealed that he had a pCO2 elevated at 56.4 with a normal pO2 of 88.3 and normal pH of 7.37. His latest chemistry panel revealed that he was mildly hyponatremic with a sodium of 130, and had a chloride of 90. The BUN was elevated at 75, creatinine elevated at 7.4, glucose elevated at 156, Hemoglobin A1c elevated at 6.9%, Alkaline phosphatase elevated at 131, and ProBNP greater than 35,000. His last B12 level on 11/07/2018 was 723. His last folate on was 18.6. His last TSH on 12/06/2018 was 4.82, which is minimally elevated. 5. The CT scan of the brain performed on 11/10/2018 was benign for acute intracranial pathology. 6. The EEG done on 12/08/18 revealed left temporal dysfunction. 7. The patient's history and neurological examination are most consistent with mild multifactorial encephalopathy, which apparently waxes and wanes, but no definite focal neurological dysfunction. His encephalopathy is minimally better today. 8. He tells me that he had a brain bleed many years ago. I did review his imaging done at [facility] a few years ago and he had closed head injuries with subarachnoid and subdural blood in the past. Recommendations 1. Continue present management. 2. Continue to correct the patient's toxic metabolic imbalances. 3. Mobilize with PT/OT. 4. Consider getting ENT evaluation for worsening hearing. 5. Observe closely. Pantera Cool M.D., M.S.P.H. Pantera Cool MD December 25, 2018 14:15
[2018-12-25 16:00] VITALS: BP 109/46
--- NOTE | 2018-12-25 16:49 | Pulmonology Progress Note ---
Assessment/Plan Assessment/Plan 1. Resp failure, hypercapneic 2. End-stage renal disease, on dialysis, status post multiple upper extremity vascular procedures. 3. Coronary artery bypass surgery. 4. Diabetes. 5. Dysphonia, tongue swelling, resolved; s/p trach PLAN: Not tolerating weaning; refuses at times disc w RN stable on vent continue to see intermittently Subjective ROS Limited/Unobtainable: Yes Allergies: Coded Allergies: CEPHALEXIN (Unverified Allergy, Unknown, 02/24/14) SULFAMETHOXAZOLE (Unverified Allergy, Unknown, 02/24/14) TRIMETHOPRIM (Unverified Allergy, Unknown, 02/24/14) Objective Last 24 Hour Vital Signs Date Time Temp Pulse Resp B/P (MAP) Pulse Ox O2 Delivery O2 Flow Rate FiO2 12/25/18 16:00 40 12/25/18 16:00 Mechanical Ventilator 12/25/18 15:15 65 23 40 30 12/25/18 13:29 67 23 40 30 12/25/18 12:00 40 12/25/18 12:00 Mechanical Ventilator 12/25/18 12:00 97.3 69 18 115/72 (86) 98 12/25/18 11:55 85 30 40 30 12/25/18 11:46 81 12/25/18 11:25 100 12/25/18 11:25 40 12/25/18 10:52 70 23 40 30 12/25/18 09:13 63 21 40 30 12/25/18 08:00 Mechanical Ventilator 12/25/18 08:00 30 12/25/18 07:28 63 12/25/18 07:11 65 22 30 30 12/25/18 06:00 139/66 12/25/18 05:08 66 22 30 30 12/25/18 04:00 30 12/25/18 04:00 Mechanical Ventilator 12/25/18 03:33 67 12/25/18 03:19 71 23 30 30 12/25/18 01:06 70 23 30 30 12/25/18 00:00 Mechanical Ventilator 12/25/18 00:00 97.7 69 22 144/81 (102) 98 12/24/18 23:33 97 22 30 30 12/24/18 23:31 69 12/24/18 22:13 66 147/79 12/24/18 21:12 66 20 30 30 12/24/18 20:00 98.1 68 18 147/79 (101) 98 12/24/18 20:00 Mechanical Ventilator 12/24/18 20:00 30 12/24/18 20:00 68 12/24/18 19:19 68 20 30 30 12/24/18 17:42 156/80 12/24/18 17:13 69 23 30 Intake and Output 12/24/18 12/25/18 18:59 06:59 Intake Total 870 ml 1045 ml Balance 870 ml 1045 ml Free Water 150 ml 550 ml Tube Feeding 720 ml 495 ml # Bowel Movements 1 5 Objective trach on vent General Appearance: no acute distress HEENT: atraumatic Respiratory/Chest: lungs clear, decreased breath sounds Cardiovascular: normal rate Microbiology Date/Time Source Procedure Growth Status 12/24/18 12:00 Ankle Right Gram Stain - Final Resulted 12/24/18 12:00 Ankle Right Wound Culture - Preliminary Resulted Current Medications Medications (Trade) Dose Ordered Sig/Aleks Route PRN Reason Start Time Stop Time Status Last Admin Dose Admin Acetaminophen (Tylenol) 650 mg Q6H PRN GT Mild Pain/Temp > 100.5 12/21/18 16:00 01/20/19 15:59 12/25/18 00:42 Apixaban (Eliquis) 2.5 mg BID ORAL 12/21/18 18:00 01/20/19 17:59 12/25/18 10:16 Bacitracin (Bacitracin) 1 applic EVERY 12 HOURS TOPIC 12/11/18 21:00 01/06/19 17:59 12/25/18 10:23 Carvedilol (Coreg) 3.125 mg EVERY 12 HOURS GT 12/21/18 21:00 01/03/19 20:59 12/24/18 22:13 Clotrimazole (Lotrimin) 1 applic BID TOPIC 12/07/18 18:00 01/06/19 17:59 12/25/18 10:15 Collagenase (Santyl) 1 applic DAILY TOPIC 12/19/18 09:00 01/18/19 08:59 12/25/18 10:16 Dextrose (Dextrose 50%) 25 ml Q30M PRN IV Hypoglycemia 12/01/18 19:30 12/31/18 19:29 Dextrose (Dextrose 50%) 50 ml Q30M PRN IV Hypoglycemia 12/01/18 19:30 12/31/18 19:29 Escitalopram Oxalate (Lexapro) 10 mg DAILY GT 12/18/18 09:00 01/17/19 08:59 12/25/18 10:16 Hydralazine HCl (Apresoline) 10 mg Q6H PRN GT For High Blood Pressure 12/03/18 16:45 01/02/19 16:44 12/07/18 04:47 Hydromorphone HCl (Dilaudid) 1 mg Q4H PRN ORAL pain 4-12/22/18 12:00 12/28/18 15:59 12/25/18 04:07 Insulin Aspart (NovoLOG) EVERY 6 HOURS SUBQ 12/02/18 00:00 12/31/18 20:59 12/25/18 12:29 Midodrine (Pro-Amatine) 10 mg THREE TIMES A DAY GT 12/19/18 13:00 01/18/19 12:59 12/25/18 10:16 Mirtazapine (Remeron) 15 mg BEDTIME GT 12/21/18 21:00 01/20/19 20:59 12/24/18 22:13 Nitroglycerin (Nitro-Bid) 1 inch TID@0600,1200,1800 TOPIC 12/07/18 12:00 01/06/19 11:59 12/24/18 17:42 Tacrolimus (Prograf) 2 mg SuTuThSa@0900,2100 ORAL 12/17/18 21:00 01/16/19 20:59 12/24/18 22:13 Saroj Mendoza MD December 25, 2018 16:49
[2018-12-25 20:00] VITALS: BP 131/93
--- NOTE | 2018-12-25 20:27 | Infectious Diseases Prog Note ---
Assessment/Plan Problems: (1) G-tube site cellulitis Assessment & Plan: improved, culture from the G tube site grew pseudomonas , S /P ciprofloxacin for 7 days , continue local care as per GI. keep area clean and dry . may need tube change if continue to leak the feeding tube materials (2) Thrush, oral Assessment & Plan: continue local nystatin as needed , S/P micafungin for three weeks empirically (3) HCV antibody positive Assessment & Plan: no evidence of active infection, with undetectable viral load , suspect due to previous infection , cleared, S/P liver transplant . (4) Foot ulcer Assessment & Plan: in diabetic patient , with MRSA , S/P vancomycin treatment with HD for two weeks , had another vascular eval today with revascularization to the right leg , S/P ulcer resection by admin dir today . bone scan ruled out osteomyelitis of the heel . continue local wound care as per admin dir . (5) DM (diabetes mellitus) Assessment & Plan: recommend tight glycemic control to keep blood glucose between 100-140 (6) CHF (congestive heart failure) Assessment & Plan: on HD , renal is following, monitor daily weight (7) Severe tongue swelling Assessment & Plan: improving , s/p tracheostomy to protect his airway since respiratory status worsened . now improving, pulmonary is following (8) Pleural effusion Assessment & Plan: recurrent on the right, with lung collapse , S/P thoracentesis X2 with removal of 1.5 cc of clear fluids. PREVIOUS culture were negative with negative cytology Assessment/Plan will continue to monitor patient on daily basis and make recommendations as necessary since he is high risk for recurrent infection Subjective Constitutional: Reports: no symptoms HEENT: Reports: no symptoms Respiratory: Reports: no symptoms Breasts: Reports: no symptoms Cardiovascular: Reports: no symptoms Gastrointestinal/Abdominal: Reports: no symptoms Genitourinary: Reports: no symptoms Neurologic: Reports: no symptoms Psychiatric: Reports: no symptoms Skin: Reports: no symptoms Endocrine: Reports: no symptoms Hematologic: Reports: no symptoms Musculoskeletal: Reports: pain Allergies: Coded Allergies: CEPHALEXIN (Unverified Allergy, Unknown, 02/24/14) SULFAMETHOXAZOLE (Unverified Allergy, Unknown, 02/24/14) TRIMETHOPRIM (Unverified Allergy, Unknown, 02/24/14) Subjective he was comfortable, lying in bed, no fever or chills, no significant secretions , no SOB . has no thrush on his tongue, has heel pain at the surgery site with wound VAC in place Objective Vital Signs Last 24 Hour Vital Signs Date Time Temp Pulse Resp B/P (MAP) Pulse Ox O2 Delivery O2 Flow Rate FiO2 12/25/18 20:18 80 130/70 12/25/18 19:23 70 24 40 40 12/25/18 17:25 70 20 40 30 12/25/18 16:00 97.3 73 20 109/46 (67) 100 12/25/18 16:00 40 12/25/18 16:00 68 12/25/18 16:00 Mechanical Ventilator 12/25/18 15:15 65 23 40 30 12/25/18 13:29 67 23 40 30 12/25/18 12:00 40 12/25/18 12:00 Mechanical Ventilator 12/25/18 12:00 97.3 69 18 115/72 (86) 98 12/25/18 11:55 85 30 40 30 12/25/18 11:46 81 12/25/18 11:25 100 12/25/18 11:25 40 12/25/18 10:52 70 23 40 30 12/25/18 09:13 63 21 40 30 12/25/18 08:00 Mechanical Ventilator 12/25/18 08:00 30 12/25/18 07:28 63 12/25/18 07:11 65 22 30 30 12/25/18 06:00 139/66 12/25/18 05:08 66 22 30 30 12/25/18 04:00 30 12/25/18 04:00 Mechanical Ventilator 12/25/18 03:33 67 12/25/18 03:19 71 23 30 30 12/25/18 01:06 70 23 30 30 12/25/18 00:00 Mechanical Ventilator 12/25/18 00:00 97.7 69 22 144/81 (102) 98 12/24/18 23:33 97 22 30 30 12/24/18 23:31 69 12/24/18 22:13 66 147/79 12/24/18 21:12 66 20 30 30 Height (Feet): 5 Height (Inches): 4.00 Weight (Pounds): 243 General Appearance: WD/WN, no acute distress HEENT: normocephalic, atraumatic, anicteric, mucous membranes moist, PERRL, EOMI, pharynx normal, supple, no JVD, status post trach Respiratory/Chest: chest wall non-tender, no respiratory distress, no accessory muscle use, decreased breath sounds, crackles/rales Cardiovascular: normal peripheral pulses, normal rate, regular rhythm, no gallop/murmur, no JVD Abdomen: normal bowel sounds, soft, non tender, no organomegaly, non distended , no mass, no scars Extremities: no cyanosis, no clubbing Skin: no rash, no lesions, ulcers 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: 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 normal, alert, responsive Lymphatic: no neck adenopathy, no groin adenopathy Musculoskeletal: normal muscle bulk, no effusion Microbiology Date/Time Source Procedure Growth Status 12/24/18 12:00 Ankle Right Gram Stain - Final Resulted 12/24/18 12:00 Ankle Right Wound Culture - Preliminary Resulted Current Medications Medications (Trade) Dose Ordered Sig/Aleks Route PRN Reason Start Time Stop Time Status Last Admin Dose Admin Acetaminophen (Tylenol) 650 mg Q6H PRN GT Mild Pain/Temp > 100.5 12/21/18 16:00 01/20/19 15:59 12/25/18 00:42 Apixaban (Eliquis) 2.5 mg BID ORAL 12/21/18 18:00 01/20/19 17:59 12/25/18 17:39 Bacitracin (Bacitracin) 1 applic EVERY 12 HOURS TOPIC 12/11/18 21:00 01/06/19 17:59 12/25/18 20:19 Carvedilol (Coreg) 3.125 mg EVERY 12 HOURS GT 12/21/18 21:00 01/03/19 20:59 12/25/18 20:18 Clotrimazole (Lotrimin) 1 applic BID TOPIC 12/07/18 18:00 01/06/19 17:59 12/25/18 17:41 Collagenase (Santyl) 1 applic DAILY TOPIC 12/19/18 09:00 01/18/19 08:59 12/25/18 10:16 Dextrose (Dextrose 50%) 25 ml Q30M PRN IV Hypoglycemia 12/01/18 19:30 12/31/18 19:29 Dextrose (Dextrose 50%) 50 ml Q30M PRN IV Hypoglycemia 12/01/18 19:30 12/31/18 19:29 Escitalopram Oxalate (Lexapro) 10 mg DAILY GT 12/18/18 09:00 01/17/19 08:59 12/25/18 10:16 Hydralazine HCl (Apresoline) 10 mg Q6H PRN GT For High Blood Pressure 12/03/18 16:45 01/02/19 16:44 12/07/18 04:47 Hydromorphone HCl (Dilaudid) 1 mg Q4H PRN ORAL pain 11-2512/22/18 12:00 12/28/18 15:59 12/25/18 04:07 Insulin Aspart (NovoLOG) EVERY 6 HOURS SUBQ 12/02/18 00:00 12/31/18 20:59 12/25/18 17:39 Midodrine (Pro-Amatine) 10 mg THREE TIMES A DAY GT 12/19/18 13:00 01/18/19 12:59 12/25/18 17:47 Mirtazapine (Remeron) 15 mg BEDTIME GT 12/21/18 21:00 01/20/19 20:59 12/25/18 20:18 Nitroglycerin (Nitro-Bid) 1 inch TID@0600,1200,1800 TOPIC 12/07/18 12:00 01/06/19 11:59 12/24/18 17:42 Tacrolimus (Prograf) 2 mg SuTuThSa@0900,2100 ORAL 12/17/18 21:00 01/16/19 20:59 12/24/18 22:13 Francois Landis M.D. December 25, 2018 20:27
--- NOTE | 2018-12-25 21:15 | Progress Note ---
DATE: 12/25/2018 PSYCHIATRIC EVALUATION: SUBJECTIVE: The patient is receiving dialysis. The patient continues to complain of fatigue, depressed mood, anxiety. He is doing better than yesterday. The patient is sleeping better. MENTAL STATUS EXAMINATION: The patient is alert and oriented times self, place, and situation. Still has difficulty with anxiety. Mood is depressed. Affect is constricted, congruent with mood. Thought process is concrete. Thought content, no suicidal or homicidal ideation. ASSESSMENT: Major depressive disorder, anxiety disorder. PLAN: 1. We will continue Lexapro 10 mg in the morning, Remeron 7.5 mg at bedtime. 2. Provide the patient with reality orientation and supportive therapy. Jeffrey Lala M.D. DR: BRITANY JOB#: [id number] CC:
[2018-12-26] VITALS: BP 109/43
[2018-12-26 04:00] VITALS: BP 133/74
[2018-12-26] MEDS: HYDROmorphone 2mg tab ORAL PRN ×2 (04:01→10:48)
[2018-12-26] MEDS: Nitroglycerin 2% oint pkt TOPIC SCH ×4 (05:36→18:00)
[2018-12-26] MEDS: NovoLOG Insulin Flexpen SUBQ SCH ×4 (05:41→23:21)
[2018-12-26 08:00] VITALS: BP 133/63
[2018-12-26] MEDS: Midodrine 10mg tab GT SCH ×3 (09:15→18:19)
[2018-12-26] MEDS: Eliquis 2.5mg tablet ORAL SCH ×2 (09:15→18:21)
[2018-12-26] MEDS: Bacitracin Oint UD TOPIC SCH ×2 (09:15→20:20)
--- NOTE | 2018-12-26 11:03 | General Progress Note ---
Assessment/Plan Assessment/Plan: #Right heel diabetic foot ulcer without osteomyelitis #PAD -seen by Podiatry and ID -s/p Vanco x 2 weeks during HD -s/p selective RLE angio with SFA/pop stenting -continue Eliquis #Acute Resp hypercapnic failure s/p trach #Angioedema -continue trach care -Remains vent-dependant, breathing trials ongoing -Pulm following #End-stage renal disease, on dialysis -HD per Nephrology #Coronary artery disease -continue ASA, Coreg, atorva -cardiology following #Type 2 DM -ISS #Acute metabolic encephalopathy -continue supportive care -Neurology following #history of chronic HCV infection #history of liver transplant -continue Prograf -GI following #Dysphagia S/p PEG with PEG site cellulitis -s/p antibiotics per ID and GI -continue local wound care Subjective Date patient seen: December 26, 2018 Time patient seen: 07:45 ROS Limited/Unobtainable: Yes Cardiovascular: Reports: chest pain Respiratory: Reports: cough Gastrointestinal/Abdominal: Reports: abdominal pain Allergies: Coded Allergies: CEPHALEXIN (Unverified Allergy, Unknown, 02/24/14) SULFAMETHOXAZOLE (Unverified Allergy, Unknown, 02/24/14) TRIMETHOPRIM (Unverified Allergy, Unknown, 02/24/14) Subjective Medicine follow up for acute resp failure, PAD, right heel infected DFU, ESRD. Remains on vent. No new issues overnight Objective Last 24 Hour Vital Signs Date Time Temp Pulse Resp B/P (MAP) Pulse Ox O2 Delivery O2 Flow Rate FiO2 12/26/18 10:50 100 12/26/18 10:50 69 28 40 12/26/18 09:28 70 26 40 40 12/26/18 09:15 70 133/63 12/26/18 08:00 98.2 70 20 133/63 (86) 100 12/26/18 08:00 Mechanical Ventilator 12/26/18 08:00 40 12/26/18 07:48 66 12/26/18 07:04 67 26 40 40 12/26/18 05:36 133/74 12/26/18 05:29 77 29 40 40 12/26/18 04:31 97.9 12/26/18 04:00 97.9 68 20 133/74 (93) 100 12/26/18 04:00 69 12/26/18 04:00 Mechanical Ventilator 12/26/18 04:00 40 12/26/18 03:15 68 20 40 40 12/26/18 01:05 74 22 40 40 12/26/18 00:00 40 12/26/18 00:00 69 12/26/18 00:00 Mechanical Ventilator 12/26/18 00:00 97.5 72 22 109/43 (65) 100 12/25/18 22:56 75 28 40 40 12/25/18 21:20 72 20 40 40 12/25/18 20:18 80 130/70 12/25/18 20:00 Mechanical Ventilator 12/25/18 20:00 97.7 70 20 131/93 (106) 100 12/25/18 20:00 40 12/25/18 20:00 70 12/25/18 19:23 70 24 40 40 12/25/18 17:25 70 20 40 30 12/25/18 16:00 97.3 73 20 109/46 (67) 100 12/25/18 16:00 40 12/25/18 16:00 68 12/25/18 16:00 Mechanical Ventilator 12/25/18 15:15 65 23 40 30 12/25/18 13:29 67 23 40 30 12/25/18 12:00 40 12/25/18 12:00 Mechanical Ventilator 12/25/18 12:00 97.3 69 18 115/72 (86) 98 12/25/18 11:55 85 30 40 30 12/25/18 11:46 81 12/25/18 11:25 100 12/25/18 11:25 40 Intake and Output 12/25/18 12/26/18 19:00 07:00 Intake Total 505 ml 550 ml Output Total 2000 ml Balance -1495 ml 550 ml Free Water 100 ml 100 ml Tube Feeding 405 ml 450 ml Hemodialysis UF 2000 ml # Bowel Movements 6 5 Height (Feet): 5 Height (Inches): 4.00 Weight (Pounds): 249 General Appearance: no apparent distress, alert Neck: normal alignment, supple Cardiovascular: normal rate, regular rhythm Respiratory/Chest: lungs clear, normal breath sounds, no respiratory distress Abdomen: non tender, soft Dennis Branham MD December 26, 2018 11:03
--- NOTE | 2018-12-26 11:46 | Nephrology Progress Note ---
Assessment/Plan Problem List: (1) ESRD (end stage renal disease) on dialysis (2) Foot ulcer (3) CHF (congestive heart failure) Assessment: Ej Fx 20 % (4) Pacemaker (5) Acute respiratory failure Assessment: with Co2 retention (6) G-tube site cellulitis Assessment ESRD with high K and SOB on admit Foot ulcer, likely infected High Troponin likely NSTMI Pacer , Pleural effusion s/p CABGS s/p Liver transplant Plan due dialysis 12/28 BP low- improved on midodrine per consultants GT site infection, topical antibiotic Neuro note appreciated placement in process vascular esteban regarding heel ulcer per Dr Mcgill pain med change to dilaudid GT Now has tracheostomy and PEG Adjust BP meds add nitro paste TID Antibiotics by ID per cardio and ID Podiatry and Vascular surgical fu ? DC planning? Subjective ROS Limited/Unobtainable: No Constitutional: Reports: malaise Objective Objective Last 24 Hour Vital Signs Date Time Temp Pulse Resp B/P (MAP) Pulse Ox O2 Delivery O2 Flow Rate FiO2 12/26/18 11:20 76 33 40 40 12/26/18 10:50 100 12/26/18 10:50 69 28 40 12/26/18 09:28 70 26 40 40 12/26/18 09:15 70 133/63 12/26/18 08:00 98.2 70 20 133/63 (86) 100 12/26/18 08:00 Mechanical Ventilator 12/26/18 08:00 40 12/26/18 07:48 66 12/26/18 07:04 67 26 40 40 12/26/18 05:36 133/74 12/26/18 05:29 77 29 40 40 12/26/18 04:31 97.9 12/26/18 04:00 97.9 68 20 133/74 (93) 100 12/26/18 04:00 69 12/26/18 04:00 Mechanical Ventilator 12/26/18 04:00 40 12/26/18 03:15 68 20 40 40 12/26/18 01:05 74 22 40 40 12/26/18 00:00 40 12/26/18 00:00 69 12/26/18 00:00 Mechanical Ventilator 12/26/18 00:00 97.5 72 22 109/43 (65) 100 12/25/18 22:56 75 28 40 40 12/25/18 21:20 72 20 40 40 12/25/18 20:18 80 130/70 12/25/18 20:00 Mechanical Ventilator 12/25/18 20:00 97.7 70 20 131/93 (106) 100 12/25/18 20:00 40 12/25/18 20:00 70 12/25/18 19:23 70 24 40 40 12/25/18 17:25 70 20 40 30 12/25/18 16:00 97.3 73 20 109/46 (67) 100 12/25/18 16:00 40 12/25/18 16:00 68 12/25/18 16:00 Mechanical Ventilator 12/25/18 15:15 65 23 40 30 12/25/18 13:29 67 23 40 30 12/25/18 12:00 40 12/25/18 12:00 Mechanical Ventilator 12/25/18 12:00 97.3 69 18 115/72 (86) 98 12/25/18 11:55 85 30 40 30 12/25/18 11:46 81 Intake and Output 12/25/18 12/26/18 19:00 07:00 Intake Total 505 ml 550 ml Output Total 2000 ml Balance -1495 ml 550 ml Free Water 100 ml 100 ml Tube Feeding 405 ml 450 ml Hemodialysis UF 2000 ml # Bowel Movements 6 5 Height (Feet): 5 Height (Inches): 4.00 Weight (Pounds): 249 General Appearance: no apparent distress Cardiovascular: normal rate Respiratory/Chest: decreased breath sounds Abdomen: soft, other - PEG Objective no other change Nakul Stevens MD December 26, 2018 11:46
[2018-12-26 12:00] VITALS: BP 123/74
--- NOTE | 2018-12-26 13:08 | Cardiology Progress Note ---
Assessment/Plan Status: stable Assessment/Plan Assessment/Plan Assessment/Plan 1. Troponin leak with no chest pain. Hx of CABG. Due to renal failure. On Coreg 6.25 mg bid, aspirin and Lipitor 2. S/P CABG - outpatient stress test 3. Nonsustained ventricular tachycardia. Hx of old UT and CABG. EF 55%. No Syncope, monitor electrolytes 4. Congestive heart failure. On hemodialysis 5. End-stage renal disease, on hemodialysis per Dr. Stevens 6. Status post right sided Medtronic dual chamber pacemaker with Nl Fx. 7. Right foot ulcer. Antibiotic per Dr. Landis. FU by Dr. Huizar 8. History of liver transplant on Prograf 9. Respiratory failure, ? etiology anaphylaxis. S/P Emergency tracheostomy. Weaned off the vent on T Piece 10. Pleural effusion. FU Dr. Mendoza 11. Dysphagia, S/P PEG Dispo planning [place] when approved Subjective Cardiovascular: Reports: no symptoms Respiratory: Reports: no symptoms Gastrointestinal/Abdominal: Reports: no symptoms Genitourinary: Reports: no symptoms Subjective COVERAGE FOR [employer] Objective Last 24 Hour Vital Signs Date Time Temp Pulse Resp B/P (MAP) Pulse Ox O2 Delivery O2 Flow Rate FiO2 12/26/18 13:00 69 23 40 40 12/26/18 12:00 40 12/26/18 12:00 99.2 75 18 123/74 (90) 100 12/26/18 12:00 Mechanical Ventilator 12/26/18 12:00 123/74 12/26/18 11:55 73 12/26/18 11:20 76 33 40 40 12/26/18 11:18 98.2 12/26/18 10:50 100 12/26/18 10:50 69 28 40 12/26/18 09:28 70 26 40 40 12/26/18 09:15 70 133/63 12/26/18 08:00 98.2 70 20 133/63 (86) 100 12/26/18 08:00 Mechanical Ventilator 12/26/18 08:00 40 12/26/18 07:48 66 12/26/18 07:04 67 26 40 40 12/26/18 05:36 133/74 12/26/18 05:29 77 29 40 40 12/26/18 04:00 97.9 68 20 133/74 (93) 100 12/26/18 04:00 69 5/11/19 04:00 Mechanical Ventilator 12/26/18 04:00 40 12/26/18 03:15 68 20 40 40 12/26/18 01:05 74 22 40 40 12/26/18 00:00 40 12/26/18 00:00 69 12/26/18 00:00 Mechanical Ventilator 12/26/18 00:00 97.5 72 22 109/43 (65) 100 12/25/18 22:56 75 28 40 40 12/25/18 21:20 72 20 40 40 12/25/18 20:18 80 130/70 12/25/18 20:00 Mechanical Ventilator 12/25/18 20:00 97.7 70 20 131/93 (106) 100 12/25/18 20:00 40 12/25/18 20:00 70 12/25/18 19:23 70 24 40 40 12/25/18 17:25 70 20 40 30 12/25/18 16:00 97.3 73 20 109/46 (67) 100 12/25/18 16:00 40 12/25/18 16:00 68 12/25/18 16:00 Mechanical Ventilator 12/25/18 15:15 65 23 40 30 12/25/18 13:29 67 23 40 30 General Appearance: no apparent distress, alert EENT: PERRL/EOMI, normal ENT inspection, TMs normal, pharynx normal Neck: non-tender, normal alignment, supple, normal inspection, no JVD Rhythm: NSR Cardiovascular: normal peripheral pulses, normal rate, regular rhythm Respiratory/Chest: chest wall non-tender Abdomen: normal bowel sounds, non tender, soft Extremities: normal range of motion, non-tender, normal inspection Neurologic: group cio 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 normal, no motor/sensory deficits Intake and Output 12/25/18 12/26/18 19:00 07:00 Intake Total 505 ml 595 ml Output Total 2000 ml Balance -1495 ml 595 ml Free Water 100 ml 100 ml Tube Feeding 405 ml 495 ml Hemodialysis UF 2000 ml # Bowel Movements 6 5 Microbiology Date/Time Source Procedure Growth Status 12/24/18 12:00 Ankle Right Gram Stain - Final Resulted 12/24/18 12:00 Wound Culture - Preliminary Staphylococcus Species Diphtheroids Gram Negative Latrell Resulted Dhruv Jni MD December 26, 2018 13:08
--- NOTE | 2018-12-26 13:20 | Neurology Progress Note ---
Interim History Interim History Interim History Mr. Restrepo feels about the same as yesterday. The right heel is still painful. The right upper extremity is more swollen and more painful today. His spirits are low. He was able to sleep a fairly well last night. He is breathing well. He was unable to wean off the ventilator today. He feels generally weaker. The mind has not been clear. He denies any new neurologic symptoms. Review of Systems Neuro Review of Systems Benign. Objective Physical Exam Last Vital Signs Date Time Temp Pulse Resp B/P (MAP) Pulse Ox O2 Delivery O2 Flow Rate FiO2 12/26/18 13:00 69 23 40 40 12/26/18 12:00 99.2 123/74 (90) 100 12/26/18 12:00 Mechanical Ventilator Neurologic Exam Objective PHYSICAL EXAMINATION: GENERAL: He is a well-developed and well-nourished, pleasant gentleman, lying in bed, connected to a ventilator via a tracheostomy. HEAD: Normocephalic and atraumatic. EENT: Examination benign. NECK: No neck rigidity was observed. He did have a tracheostomy. NEUROLOGICAL EXAMINATION: MENTAL STATUS EXAMINATION: He was awake and alert. He was fully oriented. He was able to recall 3/3 words immediately and was able to remember them in 1 and 3 minutes. He was able to remember presidents Trump and Obama. SPEECH: Could not be tested, but he was able to mouth words relatively well. LANGUAGE: He was able to comprehend and express himself relatively well. CRANIAL NERVES EXAMINATION: II: The visual mckeon were intact to confrontation testing. III, IV & : The external ocular movements were full and the pupils 3 mm in diameter, equal, round, regular, and reactive sluggishly to light. V: He had normal facial sensations, and the temporales, masseters, and pterygoids functioned normally. VII: He had normal facial expressions and no facial asymmetry. VIII: Hearing was decreased bilaterally with worse hearing on the left side compared to the right. IX: The palate moved symmetrically on phonation. X: Could not be tested. XI: The sternocleidomastoids and trapezii functioned normally. XII: The tongue was in the midline without any fasciculations or atrophy. MOTOR SYSTEM: The tone was normal in all four extremities. Examination of muscle mass revealed generalized muscle wasting. Examination of power revealed G 5/5 power except for G 4+/5 power in the iliopsoas muscles bilaterally, and G 4/5 in the right ankle and toes. Power in the right upper extremity was limited by pain. Power in the right foot was also limited by pain. SENSORY EXAMINATION: He had intact sensations to light touch. Other sensory modalities could not be tested adequately. REFLEXES: 1+ and bilaterally symmetrical at the biceps, triceps, brachioradialis , and knees, 0 at both ankles. The plantar responses were flexor bilaterally. COORDINATION: He performed well on [id number] testing. STANCE & GAIT: Were deferred. Impression/Recommendations Diagnostic Impression 1. Mr. Gregg Restrepo is a 68-year-old, right-handed, gentleman with past history of multiple medical problems including hypertension, diabetes mellitus, end-stage renal disease for which he is hemodialysis dependent, prior episodes of sepsis, and prior episodes of encephalopathy, who was admitted to [facility] on October 31, 2018. Following that, he has had a stormy hospital course including pneumonia and sepsis, right foot infection, respiratory failure for which he has needed tracheostomy and in addition he has exhibited an alteration in his mental state with some waxing and waning of his mental state. 2. He feels about the same as yesterday. The right heel is still painful. The right upper extremity is more swollen and more painful today. His spirits are low. He was able to sleep a fairly well last night. He is breathing well. He was unable to wean off the ventilator today. He feels generally weaker. The mind has not been clear. He denies any new neurologic symptoms. 3. On neurological examination, at this time, he is fully oriented, his memory is normal. He has minimally impaired higher cognitive function. He is able to comprehend and express himself well. He does have mild G 4+/5 weakness in the iliopsoas muscles bilaterally. Power in the right upper extremity was limited by pain. Power in the right foot was also limited by pain but the weakness in the right ankle and toes is better than yesterday. He had globally diminished deep tendon reflexes with loss of ankle jerks, but no definite focal or lateralizing neurological findings. 4. His latest laboratory data on my initial evaluation revealed that he was anemic with a hemoglobin of 10.8 G. His last blood gas performed on 11/14/2018 revealed that he had a pCO2 elevated at 56.4 with a normal pO2 of 88.3 and normal pH of 7.37. His latest chemistry panel revealed that he was mildly hyponatremic with a sodium of 130, and had a chloride of 90. The BUN was elevated at 75, creatinine elevated at 7.4, glucose elevated at 156, Hemoglobin A1c elevated at 6.9%, Alkaline phosphatase elevated at 131, and ProBNP greater than 35,000. His last B12 level on 11/07/2018 was 723. His last folate on was 18.6. His last TSH on 12/06/2018 was 4.82, which is minimally elevated. 5. The CT scan of the brain performed on 11/10/2018 was benign for acute intracranial pathology. 6. The EEG done on 12/08/18 revealed left temporal dysfunction. 7. The patient's history and neurological examination are most consistent with mild multifactorial encephalopathy, which apparently waxes and wanes, but no definite focal neurological dysfunction. His encephalopathy is stable. 8. He tells me that he had a brain bleed many years ago. I did review his imaging done at [facility] a few years ago and he had closed head injuries with subarachnoid and subdural blood in the past. Recommendations 1. Continue present management. 2. Continue to correct the patient's toxic metabolic imbalances. 3. Mobilize with PT/OT. 4. Consider getting ENT evaluation for worsening hearing. 5. Observe closely. Pantera Cool M.D., M.S.P.H. Pantera Cool MD December 26, 2018 13:20
[2018-12-26 16:00] VITALS: BP 108/74
--- NOTE | 2018-12-26 17:22 | General Progress Note ---
Assessment/Plan Assessment/Plan: (1) Transplant ICD Codes: Z94.9 - Transplanted organ and tissue status, unspecified SNOMED: 584374103 (2) HTN (hypertension) ICD Codes: I10 - Essential (primary) hypertension SNOMED: 75166479 (3) Pacemaker ICD Codes: Z95.0 - Presence of cardiac pacemaker SNOMED: 392447573 (4) CHF (congestive heart failure) ICD Codes: I50.9 - Heart failure, unspecified SNOMED: 34517862 (5) DM (diabetes mellitus) ICD Codes: E11.9 - Type 2 diabetes mellitus without complications SNOMED: 76712734 (6) Foot ulcer ICD Codes: L97.509 - Non-pressure chronic ulcer of other part of unspecified foot with unspecified severity SNOMED: 22780065 (7) GT complication (8) ESRD (end stage renal disease) on dialysis ICD Codes: N18.6 - End stage renal disease; Z99.2 - Dependence on renal dialysis SNOMED: 581731613 Assessment/Plan: History of liver transplant, currently on Prograf C. difficile negative status post tracheostomy and PEG Infected G-tube site, fu ID recs would care cx >> GRAM NEGATIVE BACILLUS GT site care BID/prn topical abx around GT site per ID HD per nephro cont tacrolimus prn transfusions ppi zofran prn bowel regimen follow labs supportive care Subjective Allergies: Coded Allergies: CEPHALEXIN (Unverified Allergy, Unknown, 02/24/14) SULFAMETHOXAZOLE (Unverified Allergy, Unknown, 02/24/14) TRIMETHOPRIM (Unverified Allergy, Unknown, 02/24/14) Subjective above noted resting comfortably Objective Last 24 Hour Vital Signs Date Time Temp Pulse Resp B/P (MAP) Pulse Ox O2 Delivery O2 Flow Rate FiO2 12/26/18 17:01 67 20 40 40 12/26/18 16:00 40 12/26/18 16:00 72 12/26/18 16:00 Mechanical Ventilator 12/26/18 16:00 98.5 68 20 108/74 (85) 100 12/26/18 15:11 74 28 40 40 12/26/18 13:00 69 23 40 40 12/26/18 12:00 40 12/26/18 12:00 99.2 75 18 123/74 (90) 100 12/26/18 12:00 Mechanical Ventilator 12/26/18 12:00 123/74 12/26/18 11:55 73 12/26/18 11:20 76 33 40 40 12/26/18 11:18 98.2 12/26/18 10:50 100 12/26/18 10:50 69 28 40 12/26/18 09:28 70 26 40 40 12/26/18 09:15 70 133/63 12/26/18 08:00 98.2 70 20 133/63 (86) 100 12/26/18 08:00 Mechanical Ventilator 12/26/18 08:00 40 12/26/18 07:48 66 12/26/18 07:04 67 26 40 40 12/26/18 05:36 133/74 12/26/18 05:29 77 29 40 40 12/26/18 04:00 97.9 68 20 133/74 (93) 100 12/26/18 04:00 69 12/26/18 04:00 Mechanical Ventilator 12/26/18 04:00 40 12/26/18 03:15 68 20 40 40 12/26/18 01:05 74 22 40 40 12/26/18 00:00 40 12/26/18 00:00 69 12/26/18 00:00 Mechanical Ventilator 12/26/18 00:00 97.5 72 22 109/43 (65) 100 12/25/18 22:56 75 28 40 40 12/25/18 21:20 72 20 40 40 12/25/18 20:18 80 130/70 12/25/18 20:00 Mechanical Ventilator 12/25/18 20:00 97.7 70 20 131/93 (106) 100 12/25/18 20:00 40 12/25/18 20:00 70 12/25/18 19:23 70 24 40 40 12/25/18 17:25 70 20 40 30 Intake and Output 12/25/18 12/26/18 18:59 06:59 Intake Total 555 ml 595 ml Output Total 2000 ml Balance -1445 ml 595 ml Free Water 150 ml 100 ml Tube Feeding 405 ml 495 ml Hemodialysis UF 2000 ml # Bowel Movements 6 5 Height (Feet): 5 Height (Inches): 4.00 Weight (Pounds): 249 Objective Debilitated wm NCAT (+) trach Coarse BS RR abd soft NT ND (+) GT no edema Khorrami,Payman MD December 26, 2018 17:22
--- NOTE | 2018-12-26 17:24 | Infectious Diseases Prog Note ---
Assessment/Plan Problems: (1) Foot ulcer Assessment & Plan: with MRSA grew out of it , S/P vancomycin treatment with HD for two weeks , had multiple vascular eval with revascularization to the right leg , S/P ulcer resection by lease picker . deep ulcer culture is growing staphylococcus spp and gram negative rods , possible colonization , will D/W podiatry whether he needs to be started on antibiotics or not . bone scan ruled out osteomyelitis of the heel . continue local wound care as per lease picker . (2) G-tube site cellulitis Assessment & Plan: improved, still with mild erythema and tube feeding draining , culture from the G tube site previously grew pseudomonas , S/P ciprofloxacin for 7 days , continue local care as per GI. keep area clean and dry . may need tube change if continue to leak the feeding tube materials (3) Thrush, oral Assessment & Plan: continue local nystatin as needed , S/P micafungin for three weeks empirically (4) HCV antibody positive Assessment & Plan: no evidence of active infection, with undetectable viral load , suspect due to previous infection , cleared, S/P liver transplant . (5) DM (diabetes mellitus) Assessment & Plan: recommend tight glycemic control to keep blood glucose between 100-140 (6) CHF (congestive heart failure) Assessment & Plan: on HD , renal is following, monitor daily weight (7) Severe tongue swelling Assessment & Plan: improving , s/p tracheostomy to protect his airway since respiratory status worsened . now improving, pulmonary is following (8) Pleural effusion Assessment & Plan: recurrent on the right, with lung collapse , S/P thoracentesis X2 with removal of 1.5 cc of clear fluids. PREVIOUS culture were negative with negative cytology Assessment/Plan will continue to monitor patient on daily basis and make recommendations as necessary since he is high risk for recurrent infection Subjective Constitutional: Reports: no symptoms HEENT: Reports: no symptoms Respiratory: Reports: no symptoms Breasts: Reports: no symptoms Cardiovascular: Reports: no symptoms Gastrointestinal/Abdominal: Reports: no symptoms Genitourinary: Reports: no symptoms Neurologic: Reports: no symptoms Psychiatric: Reports: no symptoms Skin: Reports: rash - around the G tube site Endocrine: Reports: no symptoms Hematologic: Reports: no symptoms Musculoskeletal: Reports: pain Allergies: Coded Allergies: CEPHALEXIN (Unverified Allergy, Unknown, 02/24/14) SULFAMETHOXAZOLE (Unverified Allergy, Unknown, 02/24/14) TRIMETHOPRIM (Unverified Allergy, Unknown, 02/24/14) Subjective he was comfortable, lying in bed, no fever or chills, no significant secretions , no SOB . has no thrush on his tongue, has heel pain at the surgery site with wound VAC in place, but no draining coming out Objective Vital Signs Last 24 Hour Vital Signs Date Time Temp Pulse Resp B/P (MAP) Pulse Ox O2 Delivery O2 Flow Rate FiO2 12/26/18 17:01 67 20 40 40 12/26/18 16:00 40 12/26/18 16:00 72 12/26/18 16:00 Mechanical Ventilator 12/26/18 16:00 98.5 68 20 108/74 (85) 100 12/26/18 15:11 74 28 40 40 12/26/18 13:00 69 23 40 40 12/26/18 12:00 40 12/26/18 12:00 99.2 75 18 123/74 (90) 100 12/26/18 12:00 Mechanical Ventilator 12/26/18 12:00 123/74 12/26/18 11:55 73 12/26/18 11:20 76 33 40 40 12/26/18 11:18 98.2 12/26/18 10:50 100 12/26/18 10:50 69 28 40 12/26/18 09:28 70 26 40 40 12/26/18 09:15 70 133/63 12/26/18 08:00 98.2 70 20 133/63 (86) 100 12/26/18 08:00 Mechanical Ventilator 12/26/18 08:00 40 12/26/18 07:48 66 12/26/18 07:04 67 26 40 40 12/26/18 05:36 133/74 12/26/18 05:29 77 29 40 40 12/26/18 04:00 97.9 68 20 133/74 (93) 100 12/26/18 04:00 69 12/26/18 04:00 Mechanical Ventilator 12/26/18 04:00 40 12/26/18 03:15 68 20 40 40 12/26/18 01:05 74 22 40 40 12/26/18 00:00 40 12/26/18 00:00 69 12/26/18 00:00 Mechanical Ventilator 12/26/18 00:00 97.5 72 22 109/43 (65) 100 12/25/18 22:56 75 28 40 40 12/25/18 21:20 72 20 40 40 12/25/18 20:18 80 130/70 12/25/18 20:00 Mechanical Ventilator 12/25/18 20:00 97.7 70 20 131/93 (106) 100 12/25/18 20:00 40 12/25/18 20:00 70 12/25/18 19:23 70 24 40 40 12/25/18 17:25 70 20 40 30 Height (Feet): 5 Height (Inches): 4.00 Weight (Pounds): 249 General Appearance: WD/WN, no acute distress HEENT: normocephalic, atraumatic, anicteric, mucous membranes moist, PERRL, EOMI, pharynx normal, supple, no JVD, status post trach Respiratory/Chest: chest wall non-tender, lungs clear, normal breath sounds, no respiratory distress, no accessory muscle use Cardiovascular: normal peripheral pulses, normal rate, regular rhythm, no gallop/murmur, no JVD Abdomen: normal bowel sounds, soft, non tender, no organomegaly, non distended , no mass, no scars, other - larry G tube skin erythema and mild drainage Genitourinary: normal external genitalia Extremities: no cyanosis, no clubbing Skin: no rash, no lesions, ulcers 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5 mg BID ORAL 12/21/18 18:00 01/20/19 17:59 12/26/18 09:15 Bacitracin (Bacitracin) 1 applic EVERY 12 HOURS TOPIC 12/11/18 21:00 01/06/19 17:59 12/26/18 09:15 Carvedilol (Coreg) 3.125 mg EVERY 12 HOURS GT 12/21/18 21:00 01/03/19 20:59 12/26/18 09:15 Clotrimazole (Lotrimin) 1 applic BID TOPIC 12/07/18 18:00 01/06/19 17:59 12/26/18 09:16 Collagenase (Santyl) 1 applic DAILY TOPIC 12/19/18 09:00 01/18/19 08:59 12/26/18 09:16 Dextrose (Dextrose 50%) 25 ml Q30M PRN IV Hypoglycemia 12/01/18 19:30 12/31/18 19:29 Dextrose (Dextrose 50%) 50 ml Q30M PRN IV Hypoglycemia 12/01/18 19:30 12/31/18 19:29 Escitalopram Oxalate (Lexapro) 10 mg DAILY GT 12/18/18 09:00 01/17/19 08:59 12/26/18 09:15 Hydralazine HCl (Apresoline) 10 mg Q6H PRN GT For High Blood Pressure 12/03/18 16:45 01/02/19 16:44 12/07/18 04:47 Hydromorphone HCl (Dilaudid) 1 mg Q4H PRN ORAL pain 4-12/22/18 12:00 12/28/18 15:59 12/26/18 10:48 Insulin Aspart (NovoLOG) EVERY 6 HOURS SUBQ 12/02/18 00:00 12/31/18 20:59 12/26/18 12:12 Midodrine (Pro-Amatine) 10 mg THREE TIMES A DAY GT 12/19/18 13:00 01/18/19 12:59 12/26/18 12:11 Mirtazapine (Remeron) 15 mg BEDTIME GT 12/21/18 21:00 01/20/19 20:59 12/25/18 20:18 Nitroglycerin (Nitro-Bid) 1 inch TID@0600,1200,1800 TOPIC 12/07/18 12:00 01/06/19 11:59 12/26/18 05:36 Tacrolimus (Prograf) 2 mg SuTuThSa@0900,2100 ORAL 12/17/18 21:00 01/16/19 20:59 12/26/18 09:19 Francois Landis M.D. December 26, 2018 17:24
[2018-12-26 20:00] VITALS: BP 105/73
--- NOTE | 2018-12-26 23:40 | Psych Consult Progress Note ---
Psychiatry Progress Note Psychiatry Progress Note Subjective the pt is hard of hearing . the pt has diff writing however is his cognition has improved since admission the pt is not confused and has a good insight about the situation he is in Medications Current Medications Medications (Trade) Dose Ordered Sig/Aleks Route PRN Reason Start Time Stop Time Status Last Admin Dose Admin Acetaminophen (Tylenol) 650 mg Q6H PRN GT Mild Pain/Temp > 100.5 12/21/18 16:00 01/20/19 15:59 12/25/18 00:42 Apixaban (Eliquis) 2.5 mg BID ORAL 12/21/18 18:00 01/20/19 17:59 12/26/18 18:21 Bacitracin (Bacitracin) 1 applic EVERY 12 HOURS TOPIC 12/11/18 21:00 01/06/19 17:59 12/26/18 20:20 Carvedilol (Coreg) 3.125 mg EVERY 12 HOURS GT 12/21/18 21:00 01/03/19 20:59 12/26/18 09:15 Clotrimazole (Lotrimin) 1 applic BID TOPIC 12/07/18 18:00 01/06/19 17:59 12/26/18 18:20 Collagenase (Santyl) 1 applic DAILY TOPIC 12/19/18 09:00 01/18/19 08:59 12/26/18 09:16 Dextrose (Dextrose 50%) 25 ml Q30M PRN IV Hypoglycemia 12/01/18 19:30 12/31/18 19:29 Dextrose (Dextrose 50%) 50 ml Q30M PRN IV Hypoglycemia 12/01/18 19:30 12/31/18 19:29 Escitalopram Oxalate (Lexapro) 10 mg DAILY GT 12/18/18 09:00 01/17/19 08:59 12/26/18 09:15 Hydralazine HCl (Apresoline) 10 mg Q6H PRN GT For High Blood Pressure 12/03/18 16:45 01/02/19 16:44 12/07/18 04:47 Hydromorphone HCl (Dilaudid) 1 mg Q4H PRN ORAL pain 4-10 12/22/18 12:00 12/28/18 15:59 12/26/18 10:48 Insulin Aspart (NovoLOG) EVERY 6 HOURS SUBQ 12/02/18 00:00 12/31/18 20:59 12/26/18 23:21 Midodrine (Pro-Amatine) 10 mg THREE TIMES A DAY GT 12/19/18 13:00 01/18/19 12:59 12/26/18 18:19 Mirtazapine (Remeron) 15 mg BEDTIME GT 12/21/18 21:00 01/20/19 20:59 12/26/18 20:20 Nitroglycerin (Nitro-Bid) 1 inch TID@0600,1200,1800 TOPIC 12/07/18 12:00 01/06/19 11:59 12/26/18 05:36 Tacrolimus (Prograf) 2 mg MoWeFr@0000,1200 ORAL 12/28/18 00:00 01/27/19 00:00 Tacrolimus (Prograf) 2 mg SuTuThSa@0900,2100 ORAL 12/26/18 21:00 01/25/19 20:59 12/26/18 20:28 Neurological/Psychiatric: Reports: anxiety, depressed, emotional problems Allergies: Coded Allergies: CEPHALEXIN (Unverified Allergy, Unknown, 02/24/14) SULFAMETHOXAZOLE (Unverified Allergy, Unknown, 02/24/14) TRIMETHOPRIM (Unverified Allergy, Unknown, 02/24/14) Objective Data Height (Feet): 5 Height (Inches): 4.00 Weight (Pounds): 249 General Appearance: WD/WN, no apparent distress, alert, overweight, alert oriented x3 Appearance: disheveled Behavior Mannerisms: good eye contact Mental Status Exam - Affect: constricted Mental Status Exam - Mood: depressed, anxious Mental Status Exam - Thought P: logical, goal-directed Mental Status Exam - Thought C: no abnormalities Mental Status Exam - Suicidal: not present Assessment/Plan Problem List: (1) Encephalopathy acute ICD Codes: G93.40 - Encephalopathy, unspecified SNOMED: 40023087, 722257006 Status: stable Assessment/Plan: lexapro 10mg po qam remeron 7.5mg po qhs the pt has capacity to make decisions. Jeffrey Lala MD December 26, 2018 23:40
[2018-12-27] VITALS: BP 90/58
[2018-12-27 04:00] VITALS: BP 109/63
[2018-12-27] MEDS: NovoLOG Insulin Flexpen SUBQ SCH ×3 (05:05→17:37)
[2018-12-27] MEDS: Nitroglycerin 2% oint pkt TOPIC SCH ×3 (05:10→17:38)
[2018-12-27 08:00] VITALS: BP 95/64
[2018-12-27] MEDS: Midodrine 10mg tab GT SCH ×3 (08:36→17:35)
[2018-12-27] MEDS: Bacitracin Oint UD TOPIC SCH ×2 (08:36→20:11)
[2018-12-27] MEDS: Eliquis 2.5mg tablet ORAL SCH ×2 (08:36→17:35)
--- NOTE | 2018-12-27 09:37 | General Progress Note ---
Assessment/Plan Assessment/Plan: Assessment (1) s/p Transplant ICD Codes: Z94.9 - Transplanted organ and tissue status, unspecified SNOMED: 542325340 (2) HTN (hypertension) ICD Codes: I10 - Essential (primary) hypertension SNOMED: 17126130 (3) Pacemaker ICD Codes: Z95.0 - Presence of cardiac pacemaker SNOMED: 568920499 (4) CHF (congestive heart failure) ICD Codes: I50.9 - Heart failure, unspecified SNOMED: 64741402 (5) DM (diabetes mellitus) ICD Codes: E11.9 - Type 2 diabetes mellitus without complications SNOMED: 68607532 (6) Foot ulcer ICD Codes: L97.509 - Non-pressure chronic ulcer of other part of unspecified foot with unspecified severity SNOMED: 63478566 (7) GT complication (8) ESRD (end stage renal disease) on dialysis ICD Codes: N18.6 - End stage renal disease; Z99.2 - Dependence on renal dialysis SNOMED: 056467551 Assessment/Plan: History of liver transplant, currently on Prograf C. difficile negative status post tracheostomy and PEG Infected G-tube site, fu ID recs would care cx >> GRAM NEGATIVE BACILLUS GT site care BID/prn topical abx around GT site per ID HD per nephro cont tacrolimus prn transfusions ppi zofran prn bowel regimen follow labs supportive care Subjective Allergies: Coded Allergies: CEPHALEXIN (Unverified Allergy, Unknown, 02/24/14) SULFAMETHOXAZOLE (Unverified Allergy, Unknown, 02/24/14) TRIMETHOPRIM (Unverified Allergy, Unknown, 02/24/14) Subjective above noted resting comfortably tolerating TF Objective Last 24 Hour Vital Signs Date Time Temp Pulse Resp B/P (MAP) Pulse Ox O2 Delivery O2 Flow Rate FiO2 12/27/18 09:04 66 19 40 12/27/18 08:28 63 95/64 12/27/18 08:00 97.4 63 20 95/64 (74) 95 12/27/18 08:00 Mechanical Ventilator 12/27/18 08:00 40 12/27/18 08:00 63 12/27/18 06:52 63 20 40 40 12/27/18 05:10 109/63 12/27/18 05:07 68 21 40 40 12/27/18 04:00 61 12/27/18 04:00 40 12/27/18 04:00 Mechanical Ventilator 12/27/18 04:00 97.9 63 18 109/63 (78) 100 12/27/18 02:55 61 20 40 40 12/27/18 00:58 67 23 40 40 12/27/18 00:00 98.1 63 20 90/58 (69) 100 12/27/18 00:00 Mechanical Ventilator 12/27/18 00:00 65 12/27/18 00:00 40 12/26/18 23:28 71 23 40 40 12/26/18 21:28 65 20 40 40 12/26/18 20:02 62 105/73 12/26/18 20:00 Mechanical Ventilator 12/26/18 20:00 63 12/26/18 20:00 98.4 62 18 105/73 (84) 100 12/26/18 20:00 40 12/26/18 18:55 62 20 40 40 12/26/18 18:00 108/74 12/26/18 17:01 67 20 40 40 12/26/18 16:00 40 12/26/18 16:00 72 12/26/18 16:00 Mechanical Ventilator 12/26/18 16:00 98.5 68 20 108/74 (85) 100 12/26/18 15:11 74 28 40 40 12/26/18 13:00 69 23 40 40 12/26/18 12:00 40 12/26/18 12:00 99.2 75 18 123/74 (90) 100 12/26/18 12:00 Mechanical Ventilator 12/26/18 12:00 123/74 12/26/18 11:55 73 12/26/18 11:20 76 33 40 40 12/26/18 11:18 98.2 12/26/18 10:50 100 12/26/18 10:50 69 28 40 Intake and Output 12/26/18 12/27/18 19:00 07:00 Intake Total 840 ml 640 ml Output Total 2 ml Balance 838 ml 640 ml Free Water 300 ml 100 ml Tube Feeding 540 ml 540 ml Stool Total 2 ml # Bowel Movements 3 3 Height (Feet): 5 Height (Inches): 4.00 Weight (Pounds): 246 Objective Debilitated wm NCAT (+) trach Coarse BS RR abd soft NT ND (+) GT no edema Nilton Browne MD December 27, 2018 09:37
--- NOTE | 2018-12-27 10:51 | Nephrology Progress Note ---
Assessment/Plan Problem List: (1) ESRD (end stage renal disease) on dialysis (2) Foot ulcer (3) CHF (congestive heart failure) Assessment: Ej Fx 20 % (4) Pacemaker (5) Acute respiratory failure Assessment: with Co2 retention (6) G-tube site cellulitis Assessment ESRD with high K and SOB on admit Foot ulcer, likely infected High Troponin likely NSTMI Pacer , Pleural effusion s/p CABGS s/p Liver transplant Plan due dialysis 12/28 labs before HD BP low- improved on midodrine per consultants GT site infection, topical antibiotic Neuro note appreciated placement in process vascular esteban regarding heel ulcer per Dr Mcgill pain med change to dilaudid GT Now has tracheostomy and PEG Adjust BP meds add nitro paste TID Antibiotics by ID per cardio and ID Podiatry and Vascular surgical fu ? DC planning? Subjective ROS Limited/Unobtainable: No Objective Objective Last 24 Hour Vital Signs Date Time Temp Pulse Resp B/P (MAP) Pulse Ox O2 Delivery O2 Flow Rate FiO2 12/27/18 09:04 66 19 40 12/27/18 08:28 63 95/64 12/27/18 08:00 97.4 63 20 95/64 (74) 95 12/27/18 08:00 Mechanical Ventilator 12/27/18 08:00 40 12/27/18 08:00 63 12/27/18 06:52 63 20 40 40 12/27/18 05:10 109/63 12/27/18 05:07 68 21 40 40 12/27/18 04:00 61 12/27/18 04:00 40 12/27/18 04:00 Mechanical Ventilator 12/27/18 04:00 97.9 63 18 109/63 (78) 100 12/27/18 02:55 61 20 40 40 12/27/18 00:58 67 23 40 40 12/27/18 00:00 98.1 63 20 90/58 (69) 100 12/27/18 00:00 Mechanical Ventilator 12/27/18 00:00 65 12/27/18 00:00 40 12/26/18 23:28 71 23 40 40 12/26/18 21:28 65 20 40 40 12/26/18 20:02 62 105/73 12/26/18 20:00 Mechanical Ventilator 12/26/18 20:00 63 12/26/18 20:00 98.4 62 18 105/73 (84) 100 12/26/18 20:00 40 12/26/18 18:55 62 20 40 40 12/26/18 18:00 108/74 12/26/18 17:01 67 20 40 40 12/26/18 16:00 40 12/26/18 16:00 72 12/26/18 16:00 Mechanical Ventilator 12/26/18 16:00 98.5 68 20 108/74 (85) 100 12/26/18 15:11 74 28 40 40 12/26/18 13:00 69 23 40 40 12/26/18 12:00 40 12/26/18 12:00 99.2 75 18 123/74 (90) 100 12/26/18 12:00 Mechanical Ventilator 12/26/18 12:00 123/74 12/26/18 11:55 73 12/26/18 11:20 76 33 40 40 12/26/18 11:18 98.2 Intake and Output 12/26/18 12/27/18 19:00 07:00 Intake Total 840 ml 640 ml Output Total 2 ml Balance 838 ml 640 ml Free Water 300 ml 100 ml Tube Feeding 540 ml 540 ml Stool Total 2 ml # Bowel Movements 3 3 Height (Feet): 5 Height (Inches): 4.00 Weight (Pounds): 246 General Appearance: no apparent distress EENT: other - vented Cardiovascular: normal rate Respiratory/Chest: decreased breath sounds Abdomen: other - PEG Objective no other change Nakul Stevens MD December 27, 2018 10:51
--- NOTE | 2018-12-27 11:49 | Neurology Progress Note ---
Interim History Interim History Interim History Mr. Restrepo feels about the same as yesterday. The right heel is less painful. The right upper extremity is more swollen and more painful today. The right hand also feels colder. His spirits are low. He was able to sleep a fairly well last night. He is breathing well. He is weaning off the ventilator today. He feels that his strength is stable. The mind has not been clear. He denies any new neurologic symptoms. Review of Systems Neuro Review of Systems Benign. Objective Physical Exam Last Vital Signs Date Time Temp Pulse Resp B/P (MAP) Pulse Ox O2 Delivery O2 Flow Rate FiO2 12/27/18 11:09 66 21 40 12/27/18 08:28 95/64 12/27/18 08:00 97.4 95 12/27/18 08:00 Mechanical Ventilator Neurologic Exam Objective PHYSICAL EXAMINATION: GENERAL: He is a well-developed and well-nourished, pleasant gentleman, lying in bed, connected to a ventilator via a tracheostomy. HEAD: Normocephalic and atraumatic. EENT: Examination benign. NECK: No neck rigidity was observed. He did have a tracheostomy. NEUROLOGICAL EXAMINATION: MENTAL STATUS EXAMINATION: He was awake and alert. He was fully oriented. He was able to recall 3/3 words immediately and was able to remember them in 1 and 3 minutes. He was able to remember presidents Trump and Obama. SPEECH: Could not be tested, but he was able to mouth words relatively well. LANGUAGE: He was able to comprehend and express himself relatively well. CRANIAL NERVES EXAMINATION: II: The visual mckeon were intact to confrontation testing. III, IV & : The external ocular movements were full and the pupils 3 mm in diameter, equal, round, regular, and reactive sluggishly to light. V: He had normal facial sensations, and the temporales, masseters, and pterygoids functioned normally. VII: He had normal facial expressions and no facial asymmetry. VIII: Hearing was decreased bilaterally with worse hearing on the left side compared to the right. IX: The palate moved symmetrically on phonation. X: Could not be tested. XI: The sternocleidomastoids and trapezii functioned normally. XII: The tongue was in the midline without any fasciculations or atrophy. MOTOR SYSTEM: The tone was normal in all four extremities. Examination of muscle mass revealed generalized muscle wasting. Examination of power revealed G 5/5 power except for G 4+/5 power in the iliopsoas muscles bilaterally, and G 4/5 in the right ankle and toes. Power in the right upper extremity was limited by pain. Power in the right foot was also limited by pain. SENSORY EXAMINATION: He had intact sensations to light touch. Other sensory modalities could not be tested adequately. REFLEXES: 1+ and bilaterally symmetrical at the biceps, triceps, brachioradialis , and knees, 0 at both ankles. The plantar responses were flexor bilaterally. COORDINATION: He performed well on frgmpi-ci-vzab testing. STANCE & GAIT: Were deferred. Impression/Recommendations Diagnostic Impression 1. Mr. Gregg Restrepo is a 68-year-old, right-handed, gentleman with past history of multiple medical problems including hypertension, diabetes mellitus, end-stage renal disease for which he is hemodialysis dependent, prior episodes of sepsis, and prior episodes of encephalopathy, who was admitted to [facility] on October 31, 2018. Following that, he has had a stormy hospital course including pneumonia and sepsis, right foot infection, respiratory failure for which he has needed tracheostomy and in addition he has exhibited an alteration in his mental state with some waxing and waning of his mental state. 2. He feels about the same as yesterday. The right heel is less painful. The right upper extremity is more swollen and more painful today. The right hand also feels colder. His spirits are low. He was able to sleep a fairly well last night. He is breathing well. He is weaning off the ventilator today. He feels that his strength is stable. The mind has not been clear. He denies any new neurologic symptoms. 3. On neurological examination, at this time, he is fully oriented, his memory is normal. He has minimally impaired higher cognitive function. He is able to comprehend and express himself well. He does have mild G 4+/5 weakness in the iliopsoas muscles bilaterally. Power in the right upper extremity was limited by pain. Power in the right foot was also limited by pain but the weakness in the right ankle and toes is better than yesterday. He had globally diminished deep tendon reflexes with loss of ankle jerks, but no definite focal or lateralizing neurological findings. 4. His latest laboratory data on my initial evaluation revealed that he was anemic with a hemoglobin of 10.8 G. His last blood gas performed on 11/14/2018 revealed that he had a pCO2 elevated at 56.4 with a normal pO2 of 88.3 and normal pH of 7.37. His latest chemistry panel revealed that he was mildly hyponatremic with a sodium of 130, and had a chloride of 90. The BUN was elevated at 75, creatinine elevated at 7.4, glucose elevated at 156, Hemoglobin A1c elevated at 6.9%, Alkaline phosphatase elevated at 131, and ProBNP greater than 35,000. His last B12 level on 11/07/2018 was 723. His last folate on was 18.6. His last TSH on 12/06/2018 was 4.82, which is minimally elevated. 5. The CT scan of the brain performed on 11/10/2018 was benign for acute intracranial pathology. 6. The EEG done on 12/08/18 revealed left temporal dysfunction. 7. The patient's history and neurological examination are most consistent with mild multifactorial encephalopathy, which apparently waxes and wanes, but no definite focal neurological dysfunction. His encephalopathy is stable. 8. He tells me that he had a brain bleed many years ago. I did review his imaging done at [facility] a few years ago and he had closed head injuries with subarachnoid and subdural blood in the past. Recommendations 1. Continue present management. 2. Continue to correct the patient's toxic metabolic imbalances. 3. Mobilize with PT/OT. 4. Consider getting ENT evaluation for worsening hearing. 5. Observe closely. Pantera Cool M.D., M.S.P.H. Pantera Cool MD December 27, 2018 11:49
[2018-12-27 12:00] VITALS: BP 116/73
--- NOTE | 2018-12-27 12:29 | General Progress Note ---
Assessment/Plan Assessment/Plan: #Right heel diabetic foot ulcer without osteomyelitis #PAD -seen by Podiatry and ID -s/p Vanco x 2 weeks during HD -s/p selective RLE angio with SFA/pop stenting -continue Eliquis #Acute Resp hypercapnic failure s/p trach #Angioedema -continue trach care -Remains vent-dependant, breathing trials ongoing -Pulm following #End-stage renal disease, on dialysis -HD per Nephrology #Coronary artery disease -continue ASA, Coreg, atorva -cardiology following #Type 2 DM -ISS #Acute metabolic encephalopathy -continue supportive care -Neurology following #history of chronic HCV infection #history of liver transplant -continue Prograf -GI following #Dysphagia S/p PEG with PEG site cellulitis -s/p antibiotics per ID and GI -continue local wound care Subjective Date patient seen: December 27, 2018 Time patient seen: 12:00 ROS Limited/Unobtainable: Yes Cardiovascular: Reports: chest pain Respiratory: Reports: cough Allergies: Coded Allergies: CEPHALEXIN (Unverified Allergy, Unknown, 02/24/14) SULFAMETHOXAZOLE (Unverified Allergy, Unknown, 02/24/14) TRIMETHOPRIM (Unverified Allergy, Unknown, 02/24/14) Subjective Medicine follow up for acute resp failure, PAD, right heel infected DFU, ESRD. Remains on vent. No new issues overnight Objective Last 24 Hour Vital Signs Date Time Temp Pulse Resp B/P (MAP) Pulse Ox O2 Delivery O2 Flow Rate FiO2 12/27/18 12:00 97.2 71 20 116/73 (87) 100 12/27/18 11:09 66 21 40 12/27/18 09:04 66 19 40 12/27/18 08:28 63 95/64 12/27/18 08:00 97.4 63 20 95/64 (74) 95 12/27/18 08:00 Mechanical Ventilator 12/27/18 08:00 40 12/27/18 08:00 63 12/27/18 06:52 63 20 40 40 12/27/18 05:10 109/63 12/27/18 05:07 68 21 40 40 12/27/18 04:00 61 12/27/18 04:00 40 12/27/18 04:00 Mechanical Ventilator 12/27/18 04:00 97.9 63 18 109/63 (78) 100 12/27/18 02:55 61 20 40 40 12/27/18 00:58 67 23 40 40 12/27/18 00:00 98.1 63 20 90/58 (69) 100 12/27/18 00:00 Mechanical Ventilator 12/27/18 00:00 65 12/27/18 00:00 40 12/26/18 23:28 71 23 40 40 12/26/18 21:28 65 20 40 40 12/26/18 20:02 62 105/73 12/26/18 20:00 Mechanical Ventilator 12/26/18 20:00 63 12/26/18 20:00 98.4 62 18 105/73 (84) 100 12/26/18 20:00 40 12/26/18 18:55 62 20 40 40 12/26/18 18:00 108/74 12/26/18 17:01 67 20 40 40 12/26/18 16:00 40 12/26/18 16:00 72 12/26/18 16:00 Mechanical Ventilator 12/26/18 16:00 98.5 68 20 108/74 (85) 100 12/26/18 15:11 74 28 40 40 12/26/18 13:00 69 23 40 40 Intake and Output 12/26/18 12/27/18 19:00 07:00 Intake Total 840 ml 640 ml Output Total 2 ml Balance 838 ml 640 ml Free Water 300 ml 100 ml Tube Feeding 540 ml 540 ml Stool Total 2 ml # Bowel Movements 3 3 Height (Feet): 5 Height (Inches): 4.00 Weight (Pounds): 246 General Appearance: no apparent distress, alert Cardiovascular: normal rate, regular rhythm Respiratory/Chest: lungs clear, normal breath sounds Abdomen: non tender, soft Extremities: non-tender Dennis Branham MD December 27, 2018 12:28
[2018-12-27] MEDS: HYDROmorphone 2mg tab ORAL PRN (15:04)
[2018-12-27 15:54] VITALS: BP 107/46
--- NOTE | 2018-12-27 17:52 | Infectious Diseases Prog Note ---
Assessment/Plan Problems: (1) Foot ulcer Assessment & Plan: with MRSA grew out of it in the past , S/P vancomycin treatment with HD for two weeks , had multiple vascular eval with revascularization to the right leg , S/P ulcer resection by evaluation assistant . deep ulcer culture is growing staphylococcus spp and E.coli with diphtheroids , possible colonization , will D/W podiatry whether he needs to be started on antibiotics or not . bone scan ruled out osteomyelitis of the heel . continue local wound care as per evaluation assistant . (2) G-tube site cellulitis Assessment & Plan: improved, still with mild erythema and tube feeding draining , culture from the G tube site previously grew pseudomonas , S/P ciprofloxacin for 7 days , continue local care as per GI. keep area clean and dry . may need tube change if continue to leak the feeding tube materials (3) Thrush, oral Assessment & Plan: continue local nystatin as needed , S/P micafungin for three weeks empirically (4) HCV antibody positive Assessment & Plan: no evidence of active infection, with undetectable viral load , suspect due to previous infection , cleared, S/P liver transplant . (5) DM (diabetes mellitus) Assessment & Plan: recommend tight glycemic control to keep blood glucose between 100-140 (6) CHF (congestive heart failure) Assessment & Plan: on HD , renal is following, monitor daily weight (7) Severe tongue swelling Assessment & Plan: improving , s/p tracheostomy to protect his airway since respiratory status worsened . now improving, pulmonary is following (8) Pleural effusion Assessment & Plan: recurrent on the right, with lung collapse , S/P thoracentesis X2 with removal of 1.5 cc of clear fluids. PREVIOUS culture were negative with negative cytology Assessment/Plan will continue to monitor patient on daily basis and make recommendations as necessary since he is high risk for recurrent infection Subjective Constitutional: Reports: no symptoms HEENT: Reports: no symptoms Respiratory: Reports: no symptoms Breasts: Reports: no symptoms Cardiovascular: Reports: no symptoms Gastrointestinal/Abdominal: Reports: no symptoms Genitourinary: Reports: no symptoms Neurologic: Reports: no symptoms Psychiatric: Reports: no symptoms Skin: Reports: no symptoms Endocrine: Reports: no symptoms Hematologic: Reports: no symptoms Musculoskeletal: Reports: pain, swelling Allergies: Coded Allergies: CEPHALEXIN (Unverified Allergy, Unknown, 02/24/14) SULFAMETHOXAZOLE (Unverified Allergy, Unknown, 02/24/14) TRIMETHOPRIM (Unverified Allergy, Unknown, 02/24/14) Subjective he was comfortable, lying in bed, no fever or chills, no significant secretions , no SOB . has no thrush on his tongue, has heel pain at the surgery site with wound VAC in place, but no draining coming out Objective Vital Signs Last 24 Hour Vital Signs Date Time Temp Pulse Resp B/P (MAP) Pulse Ox O2 Delivery O2 Flow Rate FiO2 12/27/18 17:19 67 22 40 12/27/18 16:00 40 12/27/18 16:00 Mechanical Ventilator 12/27/18 15:54 98.4 66 20 107/46 (66) 99 12/27/18 15:39 67 12/27/18 14:51 69 30 40 12/27/18 13:15 67 20 40 12/27/18 12:00 97.2 71 20 116/73 (87) 100 12/27/18 12:00 72 12/27/18 12:00 Mechanical Ventilator 12/27/18 12:00 40 12/27/18 11:09 66 21 40 12/27/18 09:04 66 19 40 12/27/18 08:28 63 95/64 12/27/18 08:00 97.4 63 20 95/64 (74) 95 12/27/18 08:00 Mechanical Ventilator 12/27/18 08:00 40 12/27/18 08:00 63 12/27/18 06:52 63 20 40 40 12/27/18 05:10 109/63 12/27/18 05:07 68 21 40 40 12/27/18 04:00 61 12/27/18 04:00 40 12/27/18 04:00 Mechanical Ventilator 12/27/18 04:00 97.9 63 18 109/63 (78) 100 12/27/18 02:55 61 20 40 40 12/27/18 00:58 67 23 40 40 12/27/18 00:00 98.1 63 20 90/58 (69) 100 12/27/18 00:00 Mechanical Ventilator 12/27/18 00:00 65 12/27/18 00:00 40 12/26/18 23:28 71 23 40 40 12/26/18 21:28 65 20 40 40 12/26/18 20:02 62 105/73 5/11/19 20:00 Mechanical Ventilator 12/26/18 20:00 63 12/26/18 20:00 98.4 62 18 105/73 (84) 100 12/26/18 20:00 40 12/26/18 18:55 62 20 40 40 12/26/18 18:00 108/74 Height (Feet): 5 Height (Inches): 4.00 Weight (Pounds): 246 General Appearance: WD/WN, no acute distress HEENT: normocephalic, atraumatic, anicteric, mucous membranes moist, PERRL Respiratory/Chest: chest wall non-tender, lungs clear, normal breath sounds, no respiratory distress, no accessory muscle use Cardiovascular: normal peripheral pulses, normal rate, regular rhythm, no gallop/murmur, no JVD Abdomen: normal bowel sounds, soft, non tender, no organomegaly, non distended , no mass, no scars Extremities: no cyanosis, no clubbing Skin: no rash, no lesions, ulcers - right forearm, right heel 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: saas architect 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 normal, alert, responsive Lymphatic: no neck adenopathy, no groin adenopathy Musculoskeletal: normal muscle bulk, no effusion Current Medications Medications (Trade) Dose Ordered Sig/Aleks Route PRN Reason Start Time Stop Time Status Last Admin Dose Admin Acetaminophen (Tylenol) 650 mg Q6H PRN GT Mild Pain/Temp > 100.5 12/21/18 16:00 01/20/19 15:59 12/25/18 00:42 Apixaban (Eliquis) 2.5 mg BID ORAL 12/21/18 18:00 01/20/19 17:59 12/27/18 17:35 Bacitracin (Bacitracin) 1 applic EVERY 12 HOURS TOPIC 12/11/18 21:00 01/06/19 17:59 12/27/18 08:36 Carvedilol (Coreg) 3.125 mg EVERY 12 HOURS GT 12/21/18 21:00 01/03/19 20:59 12/26/18 09:15 Clotrimazole (Lotrimin) 1 applic BID TOPIC 12/07/18 18:00 01/06/19 17:59 12/27/18 17:35 Collagenase (Santyl) 1 applic DAILY TOPIC 12/19/18 09:00 01/18/19 08:59 12/26/18 09:16 Dextrose (Dextrose 50%) 25 ml Q30M PRN IV Hypoglycemia 12/01/18 19:30 12/31/18 19:29 Dextrose (Dextrose 50%) 50 ml Q30M PRN IV Hypoglycemia 12/01/18 19:30 12/31/18 19:29 Escitalopram Oxalate (Lexapro) 10 mg DAILY GT 12/18/18 09:00 01/17/19 08:59 12/27/18 08:36 Hydralazine HCl (Apresoline) 10 mg Q6H PRN GT For High Blood Pressure 12/03/18 16:45 01/02/19 16:44 12/07/18 04:47 Hydromorphone HCl (Dilaudid) 1 mg Q4H PRN ORAL pain 4-12/22/18 12:00 12/28/18 15:59 12/27/18 15:04 Insulin Aspart (NovoLOG) EVERY 6 HOURS SUBQ 12/02/18 00:00 12/31/18 20:59 12/27/18 17:37 Midodrine (Pro-Amatine) 10 mg THREE TIMES A DAY GT 12/19/18 13:00 01/18/19 12:59 12/27/18 17:35 Mirtazapine (Remeron) 15 mg BEDTIME GT 12/21/18 21:00 01/20/19 20:59 12/26/18 20:20 Nitroglycerin (Nitro-Bid) 1 inch TID@0600,1200,1800 TOPIC 12/07/18 12:00 01/06/19 11:59 12/26/18 05:36 Tacrolimus (Prograf) 2 mg MoWeFr@0000,1200 ORAL 12/28/18 00:00 01/27/19 00:00 Tacrolimus (Prograf) 2 mg SuTuThSa@0900,2100 ORAL 12/26/18 21:00 01/25/19 20:59 12/27/18 08:36 Francois Landis M.D. December 27, 2018 17:52
[2018-12-27 20:00] VITALS: BP 103/64
--- NOTE | 2018-12-27 21:29 | General Progress Note ---
Assessment/Plan Assessment/Plan: Assessment and Recs: # Anemia of chronic disease due to underlying chronic medical issues, multifactorial as well as kidney disease --> Anemia workup has been ordered, rule out gi bleed, seen by gi, also reviewed w/u --> HAS BEEN reordered since refusing --> No evidence of hemolysis is noted, peripheral smear has been reviewed. --> Epogen can be consider if hgb downtrends --> Medications have been reviewed --> evaluate with Gi team prn --> transfuse if hgb is < 7 (will trend CBC daily) ==> hgb trend 11.2-->10.9-->10.8-->10.7-->10.2-->9.7-->9.7-->8.5-->9 # Failure to thrive is likely related to poor overall status, poor functional status --> with multiple decub ulcerations that are noted, seen by id/surgery --> s/p trach as well --> cea is wnl # Coagulopathy likely secondary to decreased Vitk dependent cofactors (high INR , PT) --> monitor closely for any evidence of bleeding. Currently is on eliquis --> VIT K on prn basis sq can be administered ==> recently has improved inr 1.2-->1.1-->1.2 # Acute respiratory failure is now s/p trach to vent --> as per surgery recs # Ground glass opacities present on imaging of lung --> with pleural effusions, s/p drainage at this time --> no evidence for malignancy is noted --> as per pulm/id # Pleural effusion --> s/p thoracentesis # Hyperkalemia --> kayxelate on prn basis per renal # Renal failure --> per renal recs, appreciated --> getting hd as per schedule # Altered level of consciousness ==> currently as per baseline # PAD off heparin gtt and now on eliquis --> per vasc and cards --> 12/22 s/p right leg angiogram with intervention --> on eliquis, continue # Gt tube cellulitis == topical abx as per id around site The timing of this note does not necessarily reflect the time of the patient was seen. Greatly appreciate consultation! Subjective HEENT: Denies: no symptoms, eye pain, blurred vision, tearing, double vision, ear pain, ear discharge, nose pain, nose congestion, throat pain, throat swelling, mouth pain, mouth swelling, other Cardiovascular: Denies: no symptoms, chest pain, edema, irregular heart rate, lightheadedness, palpitations, syncope, other Respiratory: Denies: no symptoms, cough, orthopnea, shortness of breath, SOB with excertion, SOB at rest, sputum, stridor, wheezing, other Gastrointestinal/Abdominal: Denies: no symptoms, abdomen distended, abdominal pain, black stools, tarry stools, blood in stool, constipated, diarrhea, difficulty swallowing, nausea, poor appetite, poor fluid intake, rectal bleeding , vomiting, other Genitourinary: Denies: no symptoms, burning, discharge, frequency, flank pain, hematuria, incontinence, pain, urgency, other 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: Denies: no symptoms, anxiety, depressed, emotional problems, headache, numbness, paresthesia, pre-existing deficit, seizure, tingling, tremors, weakness, other Endocrine: Denies: no symptoms, excessive sweating, flushing, intolerance to cold, intolerance to heat, increased hunger, increased thirst, increased urine, unexplained weight gain, unexplained weight loss, other Hematologic/Lymphatic: Denies: no symptoms, anemia, easy bleeding, easy bruising, other Allergies: Coded Allergies: CEPHALEXIN (Unverified Allergy, Unknown, 02/24/14) SULFAMETHOXAZOLE (Unverified Allergy, Unknown, 02/24/14) TRIMETHOPRIM (Unverified Allergy, Unknown, 02/24/14) All Systems: reviewed and negative except above Subjective 11/30: comfortable, on abx, no complaints, on t-piece 12/01: to have hd done potentially tomorrow, is more alert/awake 12/02: no major bleeding, hgb remains approx 11, no changes 12/03: no events, breathing mildly better, hgb is improved 12/04: on vent/trach, no major changes, sr ekg 12/10: small amount of secretions, on trach/vent, no issues otherwise 12/11: no major issues, no complaints, labs reviewed, no sig changes 12/13: no events to report, no fevers or chills, awaiting placement 12/14: no changes, no major events to report, no fevers or chills 12/15: pending placement, getting gt feeds and hd as per renal 12/16: labs have been reviewed, cbc noted, no changes 12/17: no events, no fevers, no cp, hgb remains stable 12/18: restarted on heparin gtt, seen by pulcamelia, cards 12/20: continues to be on heparin gtt, no bleeding reported, no f/c 12/21: hd for today, no fevers or chils, off hep gtt on eliquis 12/22: to get hd tomorrow, today is s/p right leg angiogram with intervention 12/23: hgb remins stable, no fevers or chills reported 12/24: no events, no bleeding, vitals reviewed, cbc stable 12/25: no events, no bleeding, on vent, hgb 9 12/27: no changes, no f/c, no night swearts, seen with other providers Objective Last 24 Hour Vital Signs Date Time Temp Pulse Resp B/P (MAP) Pulse Ox O2 Delivery O2 Flow Rate FiO2 12/27/18 20:50 69 22 40 12/27/18 20:12 63 103/54 12/27/18 20:00 98.1 63 20 103/64 (77) 99 12/27/18 20:00 40 12/27/18 20:00 Mechanical Ventilator 12/27/18 20:00 67 12/27/18 18:48 65 23 40 12/27/18 17:19 67 22 40 12/27/18 16:00 40 12/27/18 16:00 Mechanical Ventilator 12/27/18 15:54 98.4 66 20 107/46 (66) 99 12/27/18 15:39 67 12/27/18 14:51 69 30 40 12/27/18 13:15 67 20 40 12/27/18 12:00 97.2 71 20 116/73 (87) 100 12/27/18 12:00 72 12/27/18 12:00 Mechanical Ventilator 12/27/18 12:00 40 12/27/18 11:09 66 21 40 12/27/18 09:04 66 19 40 12/27/18 08:28 63 95/64 5/12/19 08:00 97.4 63 20 95/64 (74) 95 12/27/18 08:00 Mechanical Ventilator 12/27/18 08:00 40 12/27/18 08:00 63 12/27/18 06:52 63 20 40 40 12/27/18 05:10 109/63 12/27/18 05:07 68 21 40 40 12/27/18 04:00 61 12/27/18 04:00 40 12/27/18 04:00 Mechanical Ventilator 12/27/18 04:00 97.9 63 18 109/63 (78) 100 12/27/18 02:55 61 20 40 40 12/27/18 00:58 67 23 40 40 12/27/18 00:00 98.1 63 20 90/58 (69) 100 12/27/18 00:00 Mechanical Ventilator 12/27/18 00:00 65 12/27/18 00:00 40 12/26/18 23:28 71 23 40 40 12/26/18 21:28 65 20 40 40 Intake and Output 12/26/18 12/27/18 18:59 06:59 Intake Total 840 ml 640 ml Output Total 2 ml Balance 838 ml 640 ml Free Water 300 ml 100 ml Tube Feeding 540 ml 540 ml Stool Total 2 ml # Bowel Movements 3 3 Height (Feet): 5 Height (Inches): 4.00 Weight (Pounds): 246 Objective PE General Appearance: mild distress, moderate distress Lines, tubes and drains: peripheral HEENT: EOMI, thrush, tonsils swollen ++trach Neck: normal inspection Respiratory/Chest: decreased breath sounds, accessory muscle use Cardiovascular/Chest: tachycardia Abdomen: soft, no organomegaly, no mass, ++ peg Extremities: other Skin Exam: warm/dry, rash Neurologic: alert, responsive Zacarias Khoury MD December 27, 2018 21:29
--- NOTE | 2018-12-27 21:29 | Cardiology Progress Note ---
Assessment/Plan Status: stable Assessment/Plan Assessment/Plan Assessment/Plan 1. Troponin leak with no chest pain. Hx of CABG. Due to renal failure. On Coreg 6.25 mg bid, aspirin and Lipitor 2. S/P CABG - outpatient stress test 3. Nonsustained ventricular tachycardia. Hx of old [place] and CABG. EF 55%. No Syncope, monitor electrolytes 4. Congestive heart failure. On hemodialysis 5. End-stage renal disease, on hemodialysis per Dr. Stevens 6. Status post right sided [employer] dual chamber pacemaker with Nl Fx. 7. Right foot ulcer. Antibiotic per Dr. Landis. FU by Dr. Huizar 8. History of liver transplant on Prograf 9. Respiratory failure, ? etiology anaphylaxis. S/P Emergency tracheostomy. Weaned off the vent on T Piece 10. Pleural effusion. FU Dr. Mendoza 11. Dysphagia, S/P PEG Dispo planning Jacqueline when approved Subjective Cardiovascular: Reports: no symptoms Respiratory: Reports: no symptoms Gastrointestinal/Abdominal: Reports: no symptoms Genitourinary: Reports: no symptoms Subjective COVERAGE FOR [place] Objective Last 24 Hour Vital Signs Date Time Temp Pulse Resp B/P (MAP) Pulse Ox O2 Delivery O2 Flow Rate FiO2 12/27/18 20:50 69 22 40 12/27/18 20:12 63 103/54 12/27/18 20:00 98.1 63 20 103/64 (77) 99 12/27/18 20:00 40 12/27/18 20:00 Mechanical Ventilator 12/27/18 20:00 67 12/27/18 18:48 65 23 40 12/27/18 17:19 67 22 40 12/27/18 16:00 40 12/27/18 16:00 Mechanical Ventilator 12/27/18 15:54 98.4 66 20 107/46 (66) 99 12/27/18 15:39 67 12/27/18 14:51 69 30 40 12/27/18 13:15 67 20 40 12/27/18 12:00 97.2 71 20 116/73 (87) 100 12/27/18 12:00 72 12/27/18 12:00 Mechanical Ventilator 12/27/18 12:00 40 12/27/18 11:09 66 21 40 12/27/18 09:04 66 19 40 12/27/18 08:28 63 95/64 12/27/18 08:00 97.4 63 20 95/64 (74) 95 12/27/18 08:00 Mechanical Ventilator 12/27/18 08:00 40 12/27/18 08:00 63 12/27/18 06:52 63 20 40 40 12/27/18 05:10 109/63 12/27/18 05:07 68 21 40 40 12/27/18 04:00 61 12/27/18 04:00 40 12/27/18 04:00 Mechanical Ventilator 12/27/18 04:00 97.9 63 18 109/63 (78) 100 12/27/18 02:55 61 20 40 40 12/27/18 00:58 67 23 40 40 12/27/18 00:00 98.1 63 20 90/58 (69) 100 12/27/18 00:00 Mechanical Ventilator 12/27/18 00:00 65 12/27/18 00:00 40 12/26/18 23:28 71 23 40 40 General Appearance: no apparent distress, alert EENT: PERRL/EOMI, normal ENT inspection, TMs normal, pharynx normal Neck: non-tender, normal alignment, supple, normal inspection, no JVD Rhythm: NSR Cardiovascular: normal peripheral pulses, normal rate, regular rhythm Respiratory/Chest: chest wall non-tender, lungs clear, normal breath sounds, no respiratory distress Abdomen: normal bowel sounds, non tender, soft, no organomegaly, no mass Extremities: normal range of motion, non-tender, normal inspection 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
[2018-12-28] VITALS: BP 183/84
[2018-12-28] MEDS: NovoLOG Insulin Flexpen SUBQ SCH ×4 (00:21→17:44)
[2018-12-28 04:00] VITALS: BP 117/92
[2018-12-28 04:59] LABS: BASOPHILS % (AUTO) 0.7 % (0.0-2.0); HEMATOCRIT 26.8 % (42.0-52.0); HEMOGLOBIN 8.4 G/DL (14.2-18.0); LYMPHOCYTES % (AUTO) 15.9 % (20.0-45.0); MEAN CORPUSCULAR VOLUME 80 FL (80-99); MONOCYTES % (AUTO) 10.4 % (1.0-10.0); NEUTROPHILS % (AUTO) 72.9 % (45.0-75.0); PLATELET COUNT 241 K/UL (150-450); RED BLOOD COUNT 3.36 M/UL (4.70-6.10); RED CELL DISTRIBUTION WIDTH 16.8 % (11.6-14.8); WHITE BLOOD COUNT 7.6 K/UL (4.8-10.8)
[2018-12-28] MEDS: Nitroglycerin 2% oint pkt TOPIC SCH ×3 (05:02→17:49)
[2018-12-28 05:39] LABS: ALBUMIN/GLOBULIN RATIO 0.4 (1.0-2.7); ALKALINE PHOSPHATASE 144 U/L (46-116); ANION GAP 9 mmol/L (5-15); ASPARTATE AMINO TRANSFERASE 13 U/L (15-37); BILIRUBIN,TOTAL 0.3 MG/DL (0.2-1.0); BLOOD UREA NITROGEN 71 mg/dL (7-18); CALCIUM 9.1 MG/DL (8.5-10.1); CARBON DIOXIDE 31 MMOL/L (21-32); CHLORIDE 91 MMOL/L (98-107); CREATININE 6.4 MG/DL (0.55-1.30); POTASSIUM 4.3 MMOL/L (3.5-5.1); SODIUM 131 MMOL/L (136-145)
[2018-12-28 06:01] LABS: ALANINE AMINOTRANSFERASE 6 U/L (12-78)
[2018-12-28 08:00] VITALS: BP 163/81
[2018-12-28] MEDS: Midodrine 10mg tab GT SCH ×3 (09:47→17:47)
[2018-12-28] MEDS: Eliquis 2.5mg tablet ORAL SCH (09:47)
[2018-12-28] MEDS: Bacitracin Oint UD TOPIC SCH ×2 (09:48→21:06)
--- NOTE | 2018-12-28 10:16 | Diagnostic Imaging Report ---
Indication: Scrotal pain and swelling Technique: Real time grayscale and duplex Doppler imaging of the scrotum performed. Comparison: None Findings: The testes appear heterogeneous bilaterally but the are viable with dopplerable blood flow. There is no mass identified. There is a tunica albuginea cyst on the right. Some epididymal cysts also noted. There is no hydrocele. The epididymides are unremarkable. There is severe subcutaneous swelling of the scrotal wall which is a nonspecific finding and appears to be generalized. The right testis is 4.5 x 2.1 x 3.0 cm. The left testis 2.7 x 1.9 x 2.5 cm. IMPRESSION: Scrotal wall edema, nonspecific. Suspect a systemic cause such as CHF or lymphedema. Please correlate clinically. No evidence of testicular torsion. Heterogeneity testes noted bilaterally, nonspecific in nature.
--- NOTE | 2018-12-28 10:25 | GI Progress Note ---
Assessment/Plan Problems: (1) Foot ulcer ICD Codes: L97.509 - Non-pressure chronic ulcer of other part of unspecified foot with unspecified severity SNOMED: 07551919 Qualifiers: Qualified Codes: L97.511 - Non-pressure chronic ulcer of other part of right foot limited to breakdown of skin (2) DM (diabetes mellitus) ICD Codes: E11.9 - Type 2 diabetes mellitus without complications SNOMED: 36888216 (3) Transplant ICD Codes: Z94.9 - Transplanted organ and tissue status, unspecified SNOMED: 502334043 Status: unchanged Status Narrative Discussed with Dr. Escalera Assessment/Plan History of liver transplant, currently on Prograf C. difficile negative status post tracheostomy and PEG Infected G-tube site, fu ID recs would care cx >> GRAM NEGATIVE BACILLUS Abdominal pelvis CT to evaluate distention cont GTFs GT site care BID/prn topical abx around GT site per ID HD per nephro cont tacrolimus prn transfusions ppi zofran prn Titrate bowel regimen follow labs supportive care The patient was seen and examined at bedside and all new and available data was reviewed in the patients chart. I agree with the above findings, impression and plan. (Patient seen earlier today. Signature stamp does not reflect patient encounter time.). - Jorge Escalera MD Subjective Subjective Limited abdominal distention and discomfort Scrotal swelling and pain Objective Last 24 Hour Vital Signs Date Time Temp Pulse Resp B/P (MAP) Pulse Ox O2 Delivery O2 Flow Rate FiO2 12/28/18 09:47 68 163/81 12/28/18 08:00 97.2 68 28 163/81 (108) 100 12/28/18 08:00 40 12/28/18 07:09 73 25 40 12/28/18 05:29 72 19 40 12/28/18 05:02 117/92 12/28/18 04:00 Mechanical Ventilator 12/28/18 04:00 75 12/28/18 04:00 98.2 75 24 117/92 (100) 100 12/28/18 04:00 40 12/28/18 02:57 74 21 40 12/28/18 00:55 73 21 40 12/28/18 00:00 73 12/28/18 00:00 Mechanical Ventilator 12/28/18 00:00 40 12/28/18 00:00 98.8 74 16 183/84 (117) 100 12/27/18 20:50 69 22 40 12/27/18 20:12 63 103/54 12/27/18 20:00 98.1 63 20 103/64 (77) 99 12/27/18 20:00 40 12/27/18 20:00 Mechanical Ventilator 12/27/18 20:00 67 12/27/18 18:48 65 23 40 12/27/18 17:19 67 22 40 12/27/18 16:00 40 12/27/18 16:00 Mechanical Ventilator 12/27/18 15:54 98.4 66 20 107/46 (66) 99 12/27/18 15:39 67 12/27/18 14:51 69 30 40 12/27/18 13:15 67 20 40 12/27/18 12:00 97.2 71 20 116/73 (87) 100 12/27/18 12:00 72 12/27/18 12:00 Mechanical Ventilator 12/27/18 12:00 40 12/27/18 11:09 66 21 40 Intake and Output 12/27/18 12/28/18 19:00 07:00 Intake Total 720 ml 495 ml Balance 720 ml 495 ml Free Water 180 ml Tube Feeding 540 ml 495 ml # Bowel Movements 1 Laboratory Tests Test 12/28/18 03:30 White Blood Count 7.6 K/UL (4.8-10.8) Red Blood Count 3.36 M/UL (4.70-6.10) L Hemoglobin 8.4 G/DL (14.2-18.0) L Hematocrit 26.8 % (42.0-52.0) L Mean Corpuscular Volume 80 FL (80-99) Mean Corpuscular Hemoglobin 25.0 PG (27.0-31.0) L Mean Corpuscular Hemoglobin Concent 31.3 G/DL (32.0-36.0) L Red Cell Distribution Width 16.8 % (11.6-14.8) H Platelet Count 241 K/UL (150-450) Mean Platelet Volume 7.1 FL (6.5-10.1) Neutrophils (%) (Auto) 72.9 % (45.0-75.0) Lymphocytes (%) (Auto) 15.9 % (20.0-45.0) L Monocytes (%) (Auto) 10.4 % (1.0-10.0) H Eosinophils (%) (Auto) 0.0 % (0.0-3.0) Basophils (%) (Auto) 0.7 % (0.0-2.0) Sodium Level 131 MMOL/L (136-145) L Potassium Level 4.3 MMOL/L (3.5-5.1) Chloride Level 91 MMOL/L (98-107) L Carbon Dioxide Level 31 MMOL/L (21-32) Anion Gap 9 mmol/L (5-15) Blood Urea Nitrogen 71 mg/dL (7-18) H Creatinine 6.4 MG/DL (0.55-1.30) H Estimat Glomerular Filtration Rate 8.8 mL/min (>60) Glucose Level 120 MG/DL (74-106) H Uric Acid 4.7 MG/DL (2.6-7.2) Calcium Level 9.1 MG/DL (8.5-10.1) Calcium (Send out) Pending Total Bilirubin 0.3 MG/DL (0.2-1.0) Aspartate Amino Transf (AST/SGOT) 13 U/L (15-37) L Alanine Aminotransferase (ALT/SGPT) 6 U/L (12-78) L Alkaline Phosphatase 144 U/L (46-116) H C-Reactive Protein, Quantitative 14.5 mg/dL (0.00-0.90) H Pro-B-Type Natriuretic Peptide > 49679 pg/mL (0-125) H Total Protein 6.8 G/DL (6.4-8.2) Albumin 2.0 G/DL (3.4-5.0) L Globulin 4.8 g/dL Albumin/Globulin Ratio 0.4 (1.0-2.7) L Parathyroid Hormone (Intact) Pending Height (Feet): 5 Height (Inches): 4.00 Weight (Pounds): 250 General Appearance: WD/WN, no apparent distress, alert Cardiovascular: normal rate Respiratory/Chest: normal breath sounds, no respiratory distress Abdominal Exam: normal bowel sounds, non tender, soft, GT site - Erythema noted around the GT site Extremities: normal range of motion, non-tender Objective Scrotal swelling Right upper extremity swelling Kelvin Briggs NP December 28, 2018 10:25
[2018-12-28] MEDS ORDERED: Gastrograffin 30ml RECTAL PRN (10:30)
[2018-12-28] MEDS ORDERED: Isovue-300 100ml vial INJ PRN (10:30)
--- NOTE | 2018-12-28 10:56 | General Progress Note ---
Assessment/Plan Status: unchanged Assessment/Plan: #Right heel diabetic foot ulcer without osteomyelitis #PAD -seen by Podiatry and ID -s/p Vanco x 2 weeks during HD -s/p selective RLE angio with SFA/pop stenting -continue Eliquis #Acute Resp hypercapnic failure s/p trach #Angioedema -continue trach care -Remains vent-dependant, breathing trials ongoing -Pulm following #End-stage renal disease, on dialysis #RUE edema -HD per Nephrology -check venous US of RUE #Scrotal swelling and discoloration, stat US negative for torsion -scrotal sling -Urology eval #Coronary artery disease -continue ASA, Coreg, atorva -cardiology following #Type 2 DM -ISS #Acute metabolic encephalopathy -continue supportive care -Neurology following #history of chronic HCV infection #history of liver transplant -continue Prograf -GI following #Abdominal distension -no nausea, vomiting or tenderness -check US A/P #Dysphagia S/p PEG with PEG site cellulitis -s/p antibiotics per ID and GI -continue local wound care Subjective Date patient seen: December 28, 2018 Time patient seen: 09:00 ROS Limited/Unobtainable: Yes Cardiovascular: Denies: chest pain Respiratory: Denies: cough Gastrointestinal/Abdominal: Reports: abdomen distended; Denies: abdominal pain Allergies: Coded Allergies: CEPHALEXIN (Unverified Allergy, Unknown, 02/24/14) SULFAMETHOXAZOLE (Unverified Allergy, Unknown, 02/24/14) TRIMETHOPRIM (Unverified Allergy, Unknown, 02/24/14) Subjective Medicine follow up for acute resp failure, PAD, right heel infected DFU, ESRD. Remains on vent. Alerted by nurse about RUE edema, abdominal distension and scrotal edema. Objective Last 24 Hour Vital Signs Date Time Temp Pulse Resp B/P (MAP) Pulse Ox O2 Delivery O2 Flow Rate FiO2 12/28/18 09:47 68 163/81 12/28/18 09:15 69 23 40 12/28/18 08:00 73 12/28/18 08:00 97.2 68 28 163/81 (108) 100 12/28/18 08:00 40 12/28/18 08:00 Mechanical Ventilator 12/28/18 07:09 73 25 40 12/28/18 05:29 72 19 40 12/28/18 05:02 117/92 12/28/18 04:00 Mechanical Ventilator 12/28/18 04:00 75 12/28/18 04:00 98.2 75 24 117/92 (100) 100 12/28/18 04:00 40 12/28/18 02:57 74 21 40 12/28/18 00:55 73 21 40 12/28/18 00:00 73 12/28/18 00:00 Mechanical Ventilator 12/28/18 00:00 40 12/28/18 00:00 98.8 74 16 183/84 (117) 100 12/27/18 20:50 69 22 40 12/27/18 20:12 63 103/54 12/27/18 20:00 98.1 63 20 103/64 (77) 99 12/27/18 20:00 40 12/27/18 20:00 Mechanical Ventilator 12/27/18 20:00 67 12/27/18 18:48 65 23 40 12/27/18 17:19 67 22 40 12/27/18 16:00 40 12/27/18 16:00 Mechanical Ventilator 12/27/18 15:54 98.4 66 20 107/46 (66) 99 12/27/18 15:39 67 12/27/18 14:51 69 30 40 12/27/18 13:15 67 20 40 12/27/18 12:00 97.2 71 20 116/73 (87) 100 12/27/18 12:00 72 12/27/18 12:00 Mechanical Ventilator 12/27/18 12:00 40 12/27/18 11:09 66 21 40 Intake and Output 12/27/18 12/28/18 19:00 07:00 Intake Total 720 ml 495 ml Balance 720 ml 495 ml Free Water 180 ml Tube Feeding 540 ml 495 ml # Bowel Movements 1 Laboratory Tests 12/28/18 03:30: White Blood Count 7.6, Red Blood Count 3.36L, Hemoglobin 8.4L, Hematocrit 26.8L , Mean Corpuscular Volume 80, Mean Corpuscular Hemoglobin 25.0L, Mean Corpuscular Hemoglobin Concent 31.3L, Red Cell Distribution Width 16.8H, Platelet Count 241, Mean Platelet Volume 7.1, Neutrophils (%) (Auto) 72.9, Lymphocytes (%) (Auto) 15.9L, Monocytes (%) (Auto) 10.4H, Eosinophils (%) (Auto ) 0.0, Basophils (%) (Auto) 0.7, Sodium Level 131L, Potassium Level 4.3, Chloride Level 91L, Carbon Dioxide Level 31, Anion Gap 9, Blood Urea Nitrogen 71H, Creatinine 6.4H, Estimat Glomerular Filtration Rate 8.8, Glucose Level 120H , Uric Acid 4.7, Calcium Level 9.1, Calcium (Send out) [Pending], Total Bilirubin 0.3, Aspartate Amino Transf (AST/SGOT) 13L, Alanine Aminotransferase ( ALT/SGPT) 6L, Alkaline Phosphatase 144H, C-Reactive Protein, Quantitative 14.5H , Pro-B-Type Natriuretic Peptide > 89148H, Total Protein 6.8, Albumin 2.0L, Globulin 4.8, Albumin/Globulin Ratio 0.4L, Parathyroid Hormone (Intact) [Pending ] Height (Feet): 5 Height (Inches): 4.00 Weight (Pounds): 250 General Appearance: no apparent distress, alert Cardiovascular: normal rate, regular rhythm Respiratory/Chest: lungs clear, normal breath sounds Abdomen: non tender, distended Genitourinary/Rectal: other - Scrotal swelling and discoloration Edema: 2+ Arm (R) Dennis Branham MD December 28, 2018 10:56
[2018-12-28] MEDS ORDERED: HYDROmorphone 2mg tab GT PRN (11:45)
[2018-12-28 12:00] VITALS: BP 99/57
--- NOTE | 2018-12-28 12:53 | Nephrology Progress Note ---
Assessment/Plan Problem List: (1) ESRD (end stage renal disease) on dialysis (2) Foot ulcer (3) CHF (congestive heart failure) Assessment: Ej Fx 20 % (4) Pacemaker (5) Acute respiratory failure Assessment: with Co2 retention (6) G-tube site cellulitis Assessment ESRD with high K and SOB on admit Foot ulcer, likely infected High Troponin likely NSTMI Pacer , Pleural effusion s/p CABGS s/p Liver transplant Plan on dialysis now 12/28 tolerating well labs before HD noted BP low- improved on midodrine per consultants, GI GT site infection, topical antibiotic Neuro note appreciated placement in process vascular esteban regarding heel ulcer per Dr Mcgill pain med change to dilaudid GT Now has tracheostomy and PEG Adjust BP meds add nitro paste TID Antibiotics by ID per cardio and ID Podiatry and Vascular surgical fu ? DC planning? Subjective ROS Limited/Unobtainable: No Constitutional: Reports: malaise Objective Objective Last 24 Hour Vital Signs Date Time Temp Pulse Resp B/P (MAP) Pulse Ox O2 Delivery O2 Flow Rate FiO2 12/28/18 12:00 Mechanical Ventilator 12/28/18 11:15 65 22 40 12/28/18 09:47 68 163/81 12/28/18 09:15 69 23 40 12/28/18 08:00 73 12/28/18 08:00 97.2 68 28 163/81 (108) 100 12/28/18 08:00 40 12/28/18 08:00 Mechanical Ventilator 12/28/18 07:09 73 25 40 12/28/18 05:29 72 19 40 12/28/18 05:02 117/92 12/28/18 04:00 Mechanical Ventilator 12/28/18 04:00 75 12/28/18 04:00 98.2 75 24 117/92 (100) 100 12/28/18 04:00 40 12/28/18 02:57 74 21 40 12/28/18 00:55 73 21 40 12/28/18 00:00 73 12/28/18 00:00 Mechanical Ventilator 12/28/18 00:00 40 12/28/18 00:00 98.8 74 16 183/84 (117) 100 12/27/18 20:50 69 22 40 12/27/18 20:12 63 103/54 12/27/18 20:00 98.1 63 20 103/64 (77) 99 12/27/18 20:00 40 12/27/18 20:00 Mechanical Ventilator 12/27/18 20:00 67 12/27/18 18:48 65 23 40 12/27/18 17:19 67 22 40 12/27/18 16:00 40 12/27/18 16:00 Mechanical Ventilator 12/27/18 15:54 98.4 66 20 107/46 (66) 99 12/27/18 15:39 67 12/27/18 14:51 69 30 40 12/27/18 13:15 67 20 40 Intake and Output 12/27/18 12/28/18 19:00 07:00 Intake Total 720 ml 540 ml Balance 720 ml 540 ml Free Water 180 ml Tube Feeding 540 ml 540 ml # Bowel Movements 1 Laboratory Tests 12/28/18 03:30: White Blood Count 7.6, Red Blood Count 3.36L, Hemoglobin 8.4L, Hematocrit 26.8L , Mean Corpuscular Volume 80, Mean Corpuscular Hemoglobin 25.0L, Mean Corpuscular Hemoglobin Concent 31.3L, Red Cell Distribution Width 16.8H, Platelet Count 241, Mean Platelet Volume 7.1, Neutrophils (%) (Auto) 72.9, Lymphocytes (%) (Auto) 15.9L, Monocytes (%) (Auto) 10.4H, Eosinophils (%) (Auto ) 0.0, Basophils (%) (Auto) 0.7, Sodium Level 131L, Potassium Level 4.3, Chloride Level 91L, Carbon Dioxide Level 31, Anion Gap 9, Blood Urea Nitrogen 71H, Creatinine 6.4H, Estimat Glomerular Filtration Rate 8.8, Glucose Level 120H , Uric Acid 4.7, Calcium Level 9.1, Calcium (Send out) [Pending], Total Bilirubin 0.3, Aspartate Amino Transf (AST/SGOT) 13L, Alanine Aminotransferase ( ALT/SGPT) 6L, Alkaline Phosphatase 144H, C-Reactive Protein, Quantitative 14.5H , Pro-B-Type Natriuretic Peptide > 33958C, Total Protein 6.8, Albumin 2.0L, Globulin 4.8, Albumin/Globulin Ratio 0.4L, Parathyroid Hormone (Intact) [Pending ] Height (Feet): 5 Height (Inches): 4.00 Weight (Pounds): 250 General Appearance: no apparent distress Cardiovascular: normal rate Respiratory/Chest: decreased breath sounds Abdomen: distended Genitourinary/Rectal: other - swollen tsticular sac Objective no other change Nakul Stevens MD December 28, 2018 12:53
--- NOTE | 2018-12-28 13:14 | Podiatric Progress Note ---
Assessment/Plan Patient Gregg Restrepo is a 68 year old male who was admitted on Oct 31, 2018 at 19:13 with Assessment/Plan Assessment/Plan A: R heel ulceration, necrotic, painful Hep C , s/p Liver transplant CAD, s/p CABG Cellulitis of ABD DM Elevated Troponin. P: - Pt seen and evaluated. - R heel ulceration evaluated, stable. - Right heel ulceration debridement performed to level of SubQ. - Cont wound vac therapy, apply at 125mmHg, Change Q72 hours. - NWB to RLE. - Cont care per primary team / specialists. - No acute surgical intervention required. - Podiatry will con to monitor. Subjective Allergies: Coded Allergies: CEPHALEXIN (Unverified Allergy, Unknown, 02/24/14) SULFAMETHOXAZOLE (Unverified Allergy, Unknown, 02/24/14) TRIMETHOPRIM (Unverified Allergy, Unknown, 02/24/14) Subjective Pt seen bedside with nursing staff for R heel ulceration. Pt has had wound vac applied for last 3 days. Objective Exam Last 24 Hour Vital Signs Date Time Temp Pulse Resp B/P (MAP) Pulse Ox O2 Delivery O2 Flow Rate FiO2 12/28/18 12:45 66 22 40 12/28/18 12:00 40 12/28/18 12:00 98.3 64 21 99/57 (71) 100 12/28/18 12:00 Mechanical Ventilator 12/28/18 12:00 65 12/28/18 11:15 65 22 40 12/28/18 09:47 68 163/81 12/28/18 09:15 69 23 40 12/28/18 08:00 73 12/28/18 08:00 97.2 68 28 163/81 (108) 100 12/28/18 08:00 40 12/28/18 08:00 Mechanical Ventilator 12/28/18 07:09 73 25 40 12/28/18 05:29 72 19 40 12/28/18 05:02 117/92 12/28/18 04:00 Mechanical Ventilator 12/28/18 04:00 75 12/28/18 04:00 98.2 75 24 117/92 (100) 100 12/28/18 04:00 40 12/28/18 02:57 74 21 40 12/28/18 00:55 73 21 40 12/28/18 00:00 73 12/28/18 00:00 Mechanical Ventilator 12/28/18 00:00 40 12/28/18 00:00 98.8 74 16 183/84 (117) 100 12/27/18 20:50 69 22 40 12/27/18 20:12 63 103/54 12/27/18 20:00 98.1 63 20 103/64 (77) 99 12/27/18 20:00 40 12/27/18 20:00 Mechanical Ventilator 12/27/18 20:00 67 12/27/18 18:48 65 23 40 12/27/18 17:19 67 22 40 12/27/18 16:00 40 12/27/18 16:00 Mechanical Ventilator 12/27/18 15:54 98.4 66 20 107/46 (66) 99 12/27/18 15:39 67 12/27/18 14:51 69 30 40 12/27/18 13:15 67 20 40 Laboratory Tests Test 12/28/18 03:30 White Blood Count 7.6 K/UL (4.8-10.8) Red Blood Count 3.36 M/UL (4.70-6.10) L Hemoglobin 8.4 G/DL (14.2-18.0) L Hematocrit 26.8 % (42.0-52.0) L Mean Corpuscular Volume 80 FL (80-99) Mean Corpuscular Hemoglobin 25.0 PG (27.0-31.0) L Mean Corpuscular Hemoglobin Concent 31.3 G/DL (32.0-36.0) L Red Cell Distribution Width 16.8 % (11.6-14.8) H Platelet Count 241 K/UL (150-450) Mean Platelet Volume 7.1 FL (6.5-10.1) Neutrophils (%) (Auto) 72.9 % (45.0-75.0) Lymphocytes (%) (Auto) 15.9 % (20.0-45.0) L Monocytes (%) (Auto) 10.4 % (1.0-10.0) H Eosinophils (%) (Auto) 0.0 % (0.0-3.0) Basophils (%) (Auto) 0.7 % (0.0-2.0) Sodium Level 131 MMOL/L (136-145) L Potassium Level 4.3 MMOL/L (3.5-5.1) Chloride Level 91 MMOL/L (98-107) L Carbon Dioxide Level 31 MMOL/L (21-32) Anion Gap 9 mmol/L (5-15) Blood Urea Nitrogen 71 mg/dL (7-18) H Creatinine 6.4 MG/DL (0.55-1.30) H Estimat Glomerular Filtration Rate 8.8 mL/min (>60) Glucose Level 120 MG/DL (74-106) H Uric Acid 4.7 MG/DL (2.6-7.2) Calcium Level 9.1 MG/DL (8.5-10.1) Calcium (Send out) Pending Total Bilirubin 0.3 MG/DL (0.2-1.0) Aspartate Amino Transf (AST/SGOT) 13 U/L (15-37) L Alanine Aminotransferase (ALT/SGPT) 6 U/L (12-78) L Alkaline Phosphatase 144 U/L (46-116) H C-Reactive Protein, Quantitative 14.5 mg/dL (0.00-0.90) H Pro-B-Type Natriuretic Peptide > 59764 pg/mL (0-125) H Total Protein 6.8 G/DL (6.4-8.2) Albumin 2.0 G/DL (3.4-5.0) L Globulin 4.8 g/dL Albumin/Globulin Ratio 0.4 (1.0-2.7) L Parathyroid Hormone (Intact) Pending Microbiology Date/Time Source Procedure Growth Status 11/14/18 15:30 Blood Blood Culture - Final NO GROWTH AFTER 5 DAYS Complete 11/12/18 12:13 Pleural Fluid Fungal Culture - Final Complete 11/12/18 12:13 Pleural Fluid Fungal Culture 1 - Final Complete 10/31/18 20:39 Wound Gram Stain - Final Complete 10/31/18 20:39 Wound Culture - Final Staphylococcus Aureus - Mrsa Complete 10/31/18 21:00 Nasal Nares MRSA Culture - Final Staphylococcus Aureus - Mrsa Complete 11/30/18 17:33 Stool Clostridium difficile Toxin Assay - Final Complete 12/24/18 12:00 Ankle Right Gram Stain - Final Complete 12/24/18 12:00 Wound Culture - Final Staphylococcus Aureus - Mrsa Diphtheroids Escherichia Coli Complete Exam Narrative Exam Narrative Foused B/L LE: Right foot: pulses +2/4 DP/PT , ulceration noted to plantar posterior heel, approx 2.5 cm x 2.5 cm x 0.1cm. Wound base is fibrotic, larry-wound margins reveal minimal maceration, (+) Pain upon palpation. Serous drainage is noted. No increase in temp differential or purulent drainage, minimal edema and erythema is noted. Angel Parada DPM December 28, 2018 13:14
--- NOTE | 2018-12-28 13:26 | General Progress Note ---
Assessment/Plan Status: unchanged Assessment/Plan: Assessment and Recs: # Acute non-occlusive dvt, right extremity ultrasound (acute non-occlusive DVT in internal jugular) --> currently is on eliquis, which recommend to continue --> do not recommend a SVC filter --> given prior bleeding risk, hold off on heparin gtt --> vasc surgeon is aware, seek recs # Anemia of chronic disease due to underlying chronic medical issues, multifactorial as well as kidney disease --> Anemia workup has been ordered, rule out gi bleed, seen by gi, also reviewed w/u --> HAS BEEN reordered since refusing --> No evidence of hemolysis is noted, peripheral smear has been reviewed. --> Epogen can be consider if hgb downtrends --> Medications have been reviewed --> evaluate with Gi team prn --> transfuse if hgb is < 7 (will trend CBC daily) ==> hgb trend 11.2-->10.9-->10.8-->10.7-->10.2-->9.7-->9.7-->8.5-->9 # Failure to thrive is likely related to poor overall status, poor functional status --> with multiple decub ulcerations that are noted, seen by id/surgery --> s/p trach as well --> cea is wnl # Coagulopathy likely secondary to decreased Vitk dependent cofactors (high INR , PT) --> monitor closely for any evidence of bleeding. Currently is on eliquis --> VIT K on prn basis sq can be administered ==> recently has improved inr 1.2-->1.1-->1.2 # Acute respiratory failure is now s/p trach to vent --> as per surgery recs # Ground glass opacities present on imaging of lung --> with pleural effusions, s/p drainage at this time --> no evidence for malignancy is noted --> as per pulm/id # Pleural effusion --> s/p thoracentesis # Hyperkalemia --> kayxelate on prn basis per renal # Renal failure --> per renal recs, appreciated --> getting hd as per schedule # Altered level of consciousness ==> currently as per baseline # PAD off heparin gtt and now on eliquis --> per vasc and cards --> / s/p right leg angiogram with intervention --> on eliquis, continue # Gt tube cellulitis == topical abx as per id around site The timing of this note does not necessarily reflect the time of the patient was seen. Greatly appreciate consultation! Subjective HEENT: Denies: no symptoms, eye pain, blurred vision, tearing, double vision, ear pain, ear discharge, nose pain, nose congestion, throat pain, throat swelling, mouth pain, mouth swelling, other Cardiovascular: Denies: no symptoms, chest pain, edema, irregular heart rate, lightheadedness, palpitations, syncope, other Respiratory: Denies: no symptoms, cough, orthopnea, shortness of breath, SOB with excertion, SOB at rest, sputum, stridor, wheezing, other Gastrointestinal/Abdominal: Denies: no symptoms, abdomen distended, abdominal pain, black stools, tarry stools, blood in stool, constipated, diarrhea, difficulty swallowing, nausea, poor appetite, poor fluid intake, rectal bleeding , vomiting, other Genitourinary: Denies: no symptoms, burning, discharge, frequency, flank pain, hematuria, incontinence, pain, urgency, other Endocrine: Denies: no symptoms, excessive sweating, flushing, intolerance to cold, intolerance to heat, increased hunger, increased thirst, increased urine, unexplained weight gain, unexplained weight loss, other Hematologic/Lymphatic: Denies: no symptoms, anemia, easy bleeding, easy bruising, other Allergies: Coded Allergies: CEPHALEXIN (Unverified Allergy, Unknown, 02/24/14) SULFAMETHOXAZOLE (Unverified Allergy, Unknown, 02/24/14) TRIMETHOPRIM (Unverified Allergy, Unknown, 02/24/14) Subjective 11/30: comfortable, on abx, no complaints, on t-piece 12/01: to have hd done potentially tomorrow, is more alert/awake 12/02: no major bleeding, hgb remains approx 11, no changes 12/03: no events, breathing mildly better, hgb is improved 12/04: on vent/trach, no major changes, sr ekg 12/10: small amount of secretions, on trach/vent, no issues otherwise 12/11: no major issues, no complaints, labs reviewed, no sig changes 12/13: no events to report, no fevers or chills, awaiting placement 12/14: no changes, no major events to report, no fevers or chills 12/15: pending placement, getting gt feeds and hd as per renal 12/16: labs have been reviewed, cbc noted, no changes 12/17: no events, no fevers, no cp, hgb remains stable 12/18: restarted on heparin gtt, seen by pulcamelia, cards 12/20: continues to be on heparin gtt, no bleeding reported, no f/c 12/21: hd for today, no fevers or chils, off hep gtt on eliquis 12/22: to get hd tomorrow, today is s/p right leg angiogram with intervention 12/23: hgb remins stable, no fevers or chills reported 12/24: no events, no bleeding, vitals reviewed, cbc stable 12/25: no events, no bleeding, on vent, hgb 9 12/27: no changes, no f/c, no night swearts, seen with other providers 12/28: right extremity ultrasound (acute non-occlusive DVT in internal jugular, on eliquis Objective Last 24 Hour Vital Signs Date Time Temp Pulse Resp B/P (MAP) Pulse Ox O2 Delivery O2 Flow Rate FiO2 12/28/18 12:45 66 22 40 12/28/18 12:00 40 12/28/18 12:00 98.3 64 21 99/57 (71) 100 12/28/18 12:00 Mechanical Ventilator 12/28/18 12:00 65 12/28/18 11:15 65 22 40 12/28/18 09:47 68 163/81 12/28/18 09:15 69 23 40 12/28/18 08:00 73 12/28/18 08:00 97.2 68 28 163/81 (108) 100 12/28/18 08:00 40 12/28/18 08:00 Mechanical Ventilator 12/28/18 07:09 73 25 40 12/28/18 05:29 72 19 40 12/28/18 05:02 117/92 12/28/18 04:00 Mechanical Ventilator 12/28/18 04:00 75 12/28/18 04:00 98.2 75 24 117/92 (100) 100 12/28/18 04:00 40 12/28/18 02:57 74 21 40 12/28/18 00:55 73 21 40 12/28/18 00:00 73 12/28/18 00:00 Mechanical Ventilator 12/28/18 00:00 40 12/28/18 00:00 98.8 74 16 183/84 (117) 100 12/27/18 20:50 69 22 40 12/27/18 20:12 63 103/54 12/27/18 20:00 98.1 63 20 103/64 (77) 99 12/27/18 20:00 40 12/27/18 20:00 Mechanical Ventilator 12/27/18 20:00 67 12/27/18 18:48 65 23 40 12/27/18 17:19 67 22 40 12/27/18 16:00 40 12/27/18 16:00 Mechanical Ventilator 12/27/18 15:54 98.4 66 20 107/46 (66) 99 12/27/18 15:39 67 12/27/18 14:51 69 30 40 Intake and Output 12/27/18 12/28/18 19:00 07:00 Intake Total 720 ml 540 ml Balance 720 ml 540 ml Free Water 180 ml Tube Feeding 540 ml 540 ml # Bowel Movements 1 Laboratory Tests 12/28/18 03:30: White Blood Count 7.6, Red Blood Count 3.36L, Hemoglobin 8.4L, Hematocrit 26.8L , Mean Corpuscular Volume 80, Mean Corpuscular Hemoglobin 25.0L, Mean Corpuscular Hemoglobin Concent 31.3L, Red Cell Distribution Width 16.8H, Platelet Count 241, Mean Platelet Volume 7.1, Neutrophils (%) (Auto) 72.9, Lymphocytes (%) (Auto) 15.9L, Monocytes (%) (Auto) 10.4H, Eosinophils (%) (Auto ) 0.0, Basophils (%) (Auto) 0.7, Sodium Level 131L, Potassium Level 4.3, Chloride Level 91L, Carbon Dioxide Level 31, Anion Gap 9, Blood Urea Nitrogen 71H, Creatinine 6.4H, Estimat Glomerular Filtration Rate 8.8, Glucose Level 120H , Uric Acid 4.7, Calcium Level 9.1, Calcium (Send out) [Pending], Total Bilirubin 0.3, Aspartate Amino Transf (AST/SGOT) 13L, Alanine Aminotransferase ( ALT/SGPT) 6L, Alkaline Phosphatase 144H, C-Reactive Protein, Quantitative 14.5H , Pro-B-Type Natriuretic Peptide > 13601Q, Total Protein 6.8, Albumin 2.0L, Globulin 4.8, Albumin/Globulin Ratio 0.4L, Parathyroid Hormone (Intact) [Pending ] Height (Feet): 5 Height (Inches): 4.00 Weight (Pounds): 250 Objective PE General Appearance: mild distress, moderate distress Lines, tubes and drains: peripheral HEENT: EOMI, thrush, tonsils swollen ++trach Neck: normal inspection Respiratory/Chest: decreased breath sounds, accessory muscle use Cardiovascular/Chest: tachycardia Abdomen: soft, no organomegaly, no mass, ++ peg Extremities: other Skin Exam: warm/dry, rash Neurologic: alert, responsive Zacarias Khoury MD December 28, 2018 13:26
[2018-12-28 16:00] VITALS: BP_SYST 127; BP_SYST 140; BP_DIAS 52; BP_DIAS 72
--- NOTE | 2018-12-28 17:18 | Infectious Diseases Prog Note ---
Assessment/Plan Problems: (1) Foot ulcer Assessment & Plan: with MRSA grew out of it in the past, S/P vancomycin treatment with HD for two weeks, had multiple vascular eval with revascularization to the right leg , S/P ulcer resection by cold molding press operator . deep ulcer culture is growing MRSA and E.coli with diphtheroids , possible colonization , with no evidence of active infection as per discussion with podiatry , no need to be started on antibiotics for now . bone scan ruled out osteomyelitis of the heel . continue local wound care as per cold molding press operator . (2) G-tube site cellulitis Assessment & Plan: improved, still with mild erythema and tube feeding draining , culture from the G tube site previously grew pseudomonas , S/P ciprofloxacin for 7 days , continue local care as per GI. keep area clean and dry . may need tube change if continue to leak the feeding tube materials (3) Thrush, oral Assessment & Plan: continue local nystatin as needed , S/P micafungin for three weeks empirically (4) HCV antibody positive Assessment & Plan: no evidence of active infection, with undetectable viral load , suspect due to previous infection , cleared, S/P liver transplant . (5) DM (diabetes mellitus) Assessment & Plan: recommend tight glycemic control to keep blood glucose between 100-140 (6) CHF (congestive heart failure) Assessment & Plan: on HD , renal is following, monitor daily weight (7) Severe tongue swelling Assessment & Plan: improving , s/p tracheostomy to protect his airway since respiratory status worsened . now improving, pulmonary is following (8) Pleural effusion Assessment & Plan: recurrent on the right, with lung collapse , S/P thoracentesis X2 with removal of 1.5 cc of clear fluids. PREVIOUS culture were negative with negative cytology Assessment/Plan will continue to monitor patient on daily basis and make recommendations as necessary since he is high risk for recurrent infection Subjective Constitutional: Reports: no symptoms HEENT: Reports: no symptoms Respiratory: Reports: no symptoms Breasts: Reports: no symptoms Cardiovascular: Reports: no symptoms Gastrointestinal/Abdominal: Reports: no symptoms Genitourinary: Reports: no symptoms Neurologic: Reports: no symptoms Psychiatric: Reports: no symptoms Skin: Reports: no symptoms Endocrine: Reports: no symptoms Hematologic: Reports: no symptoms Musculoskeletal: Reports: pain Allergies: Coded Allergies: CEPHALEXIN (Unverified Allergy, Unknown, 02/24/14) SULFAMETHOXAZOLE (Unverified Allergy, Unknown, 02/24/14) TRIMETHOPRIM (Unverified Allergy, Unknown, 02/24/14) Subjective he was comfortable, lying in bed, denied any fever or chills, no significant secretions, no SOB . has heel pain at the surgery site with wound VAC in place , but no draining coming out Objective Vital Signs Last 24 Hour Vital Signs Date Time Temp Pulse Resp B/P (MAP) Pulse Ox O2 Delivery O2 Flow Rate FiO2 12/28/18 16:00 40 12/28/18 16:00 Mechanical Ventilator 12/28/18 16:00 65 12/28/18 14:57 67 22 40 12/28/18 13:43 98.3 12/28/18 12:45 66 22 40 12/28/18 12:00 40 12/28/18 12:00 98.3 64 21 99/57 (71) 100 12/28/18 12:00 Mechanical Ventilator 12/28/18 12:00 65 12/28/18 11:15 65 22 40 12/28/18 09:47 68 163/81 12/28/18 09:15 69 23 40 12/28/18 08:00 73 12/28/18 08:00 97.2 68 28 163/81 (108) 100 12/28/18 08:00 40 12/28/18 08:00 Mechanical Ventilator 12/28/18 07:09 73 25 40 12/28/18 05:29 72 19 40 12/28/18 05:02 117/92 12/28/18 04:00 Mechanical Ventilator 12/28/18 04:00 75 12/28/18 04:00 98.2 75 24 117/92 (100) 100 12/28/18 04:00 40 12/28/18 02:57 74 21 40 12/28/18 00:55 73 21 40 12/28/18 00:00 73 12/28/18 00:00 Mechanical Ventilator 12/28/18 00:00 40 12/28/18 00:00 98.8 74 16 183/84 (117) 100 12/27/18 20:50 69 22 40 12/27/18 20:12 63 103/54 12/27/18 20:00 98.1 63 20 103/64 (77) 99 12/27/18 20:00 40 12/27/18 20:00 Mechanical Ventilator 12/27/18 20:00 67 12/27/18 18:48 65 23 40 12/27/18 17:19 67 22 40 Height (Feet): 5 Height (Inches): 4.00 Weight (Pounds): 250 General Appearance: WD/WN, no acute distress HEENT: normocephalic, atraumatic, anicteric, mucous membranes moist, PERRL, EOMI, pharynx normal, supple, no JVD, status post trach Respiratory/Chest: chest wall non-tender, lungs clear, normal breath sounds, no respiratory distress, no accessory muscle use Cardiovascular: normal peripheral pulses, normal rate, regular rhythm, no gallop/murmur, no JVD Abdomen: normal bowel sounds, soft, non tender, no organomegaly, non distended , no mass, no scars Extremities: no cyanosis, no clubbing Skin: no rash, no lesions, no ulcers 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: director card 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 normal, alert, responsive Lymphatic: no neck adenopathy, no groin adenopathy Musculoskeletal: normal muscle bulk, no effusion Laboratory Tests Test 12/28/18 03:30 White Blood Count 7.6 K/UL (4.8-10.8) Red Blood Count 3.36 M/UL (4.70-6.10) L Hemoglobin 8.4 G/DL (14.2-18.0) L Hematocrit 26.8 % (42.0-52.0) L Mean Corpuscular Volume 80 FL (80-99) Mean Corpuscular Hemoglobin 25.0 PG (27.0-31.0) L Mean Corpuscular Hemoglobin Concent 31.3 G/DL (32.0-36.0) L Red Cell Distribution Width 16.8 % (11.6-14.8) H Platelet Count 241 K/UL (150-450) Mean Platelet Volume 7.1 FL (6.5-10.1) Neutrophils (%) (Auto) 72.9 % (45.0-75.0) Lymphocytes (%) (Auto) 15.9 % (20.0-45.0) L Monocytes (%) (Auto) 10.4 % (1.0-10.0) H Eosinophils (%) (Auto) 0.0 % (0.0-3.0) Basophils (%) (Auto) 0.7 % (0.0-2.0) Sodium Level 131 MMOL/L (136-145) L Potassium Level 4.3 MMOL/L (3.5-5.1) Chloride Level 91 MMOL/L (98-107) L Carbon Dioxide Level 31 MMOL/L (21-32) Anion Gap 9 mmol/L (5-15) Blood Urea Nitrogen 71 mg/dL (7-18) H Creatinine 6.4 MG/DL (0.55-1.30) H Estimat Glomerular Filtration Rate 8.8 mL/min (>60) Glucose Level 120 MG/DL (74-106) H Uric Acid 4.7 MG/DL (2.6-7.2) Calcium Level 9.1 MG/DL (8.5-10.1) Calcium (Send out) Pending Total Bilirubin 0.3 MG/DL (0.2-1.0) Aspartate Amino Transf (AST/SGOT) 13 U/L (15-37) L Alanine Aminotransferase (ALT/SGPT) 6 U/L (12-78) L Alkaline Phosphatase 144 U/L (46-116) H C-Reactive Protein, Quantitative 14.5 mg/dL (0.00-0.90) H Pro-B-Type Natriuretic Peptide > 33241 pg/mL (0-125) H Total Protein 6.8 G/DL (6.4-8.2) Albumin 2.0 G/DL (3.4-5.0) L Globulin 4.8 g/dL Albumin/Globulin Ratio 0.4 (1.0-2.7) L Parathyroid Hormone (Intact) Pending Current Medications Medications (Trade) Dose Ordered Sig/Aleks Route PRN Reason Start Time Stop Time Status Last Admin Dose Admin Acetaminophen (Tylenol) 650 mg Q6H PRN GT Mild Pain/Temp > 100.5 12/21/18 16:00 01/20/19 15:59 12/25/18 00:42 Apixaban (Eliquis) 2.5 mg BID GT 12/28/18 18:00 01/27/19 17:59 Bacitracin (Bacitracin) 1 applic EVERY 12 HOURS TOPIC 12/11/18 21:00 01/06/19 17:59 12/28/18 09:48 Carvedilol (Coreg) 3.125 mg EVERY 12 HOURS GT 12/21/18 21:00 01/03/19 20:59 12/28/18 09:47 Clotrimazole (Lotrimin) 1 applic BID TOPIC 12/07/18 18:00 01/06/19 17:59 12/28/18 09:49 Collagenase (Santyl) 1 applic DAILY TOPIC 12/29/18 09:00 01/28/19 08:59 Dextrose (Dextrose 50%) 25 ml Q30M PRN IV Hypoglycemia 12/01/18 19:30 12/31/18 19:29 Dextrose (Dextrose 50%) 50 ml Q30M PRN IV Hypoglycemia 12/01/18 19:30 12/31/18 19:29 Diatrizoate Meglum/ Diatrizoate Sod (Gastrografin) 60 ml NOW PRN RECTAL Radiology Procedure 12/28/18 10:30 12/30/18 23:59 Escitalopram Oxalate (Lexapro) 10 mg DAILY GT 12/18/18 09:00 01/17/19 08:59 12/28/18 09:47 Hydralazine HCl (Apresoline) 10 mg Q6H PRN GT For High Blood Pressure 12/03/18 16:45 01/02/19 16:44 12/07/18 04:47 Insulin Aspart (NovoLOG) EVERY 6 HOURS SUBQ 12/02/18 00:00 12/31/18 20:59 12/28/18 05:01 Iopamidol (Isovue-300 100ml) 100 ml NOW PRN INJ Radiology Procedure 12/28/18 10:30 12/30/18 23:59 Midodrine (Pro-Amatine) 10 mg THREE TIMES A DAY GT 12/19/18 13:00 01/18/19 12:59 12/28/18 12:25 Mirtazapine (Remeron) 15 mg BEDTIME GT 12/21/18 21:00 01/20/19 20:59 12/27/18 20:12 Nitroglycerin (Nitro-Bid) 1 inch TID@0600,1200,1800 TOPIC 12/07/18 12:00 01/06/19 11:59 12/26/18 05:36 Tacrolimus (Prograf) 2 mg MoWeFr@0000,1200 ORAL 12/28/18 00:00 01/27/19 00:00 12/28/18 12:25 Tacrolimus (Prograf) 2 mg TrudiNaren@0900,2100 ORAL 12/26/18 21:00 01/25/19 20:59 12/27/18 20:11 Francois Landis M.D. December 28, 2018 17:18
--- NOTE | 2018-12-28 17:36 | Diagnostic Imaging Report ---
Indication: Abdominal pain Technique: Continuous helical transaxial imaging of the abdomen and pelvis was obtained from the lung bases to the pubic symphysis during intravenous contrast administration. Coronal 2-D reformats were also obtained. Study obtained in a Siemens sensation [address] Automatic Exposure Control was utilized. Total Dose length Product (DLP): 1237.[address] Dose Index Volume (CTDIvol): 18.6 mGy Comparison: None Findings: There is a moderate to large right pleural effusion partially seen on this examination. There is a trace left pleural effusion. There is subcutaneous edema throughout the consistent with anasarca. There is a moderate ascites. The heart is enlarged. Arterial calcifications involving aorta and multiple branches noted. Gastrostomy tube is noted in good position. The spleen is enlarged. The kidneys are atrophic. There is significant limitation on this examination. There is no evidence of bowel obstruction. There is good opacification of small large bowel. The appendix is normal. Diverticula are noted in the colon. There are surgical clips in abdomen. Cholecystectomy is noted. There are hypodensities within the kidneys which are likely cysts. There is a left inguinal hernia containing fat. IMPRESSION: Moderate to large right pleural effusion. Anasarca Moderate ascites. Atherosclerotic vascular disease NG tube in good position Splenomegaly. Status post cholecystectomy. Left inguinal hernia containing fat. Suggestion of multiple bilateral renal cysts Atrophic kidneys The CT scanner at [facility] is accredited by the [employer] and the scans are performed using dose optimization techniques as appropriate to a performed exam including Automatic Exposure control.
[2018-12-28] MEDS: Eliquis 2.5mg tablet GT SCH (17:44)
--- NOTE | 2018-12-28 17:47 | Cardiology Progress Note ---
Assessment/Plan Status: stable, progressing Assessment/Plan Assessment/Plan Assessment/Plan 1. Troponin leak with no chest pain. Hx of CABG. Due to renal failure. On Coreg 6.25 mg bid, aspirin and Lipitor 2. S/P CABG - outpatient stress test 3. Nonsustained ventricular tachycardia. Hx of old [place] and CABG. EF 55%. No Syncope, monitor electrolytes 4. Congestive heart failure. On hemodialysis 5. End-stage renal disease, on hemodialysis per Dr. Stevens 6. Status post right sided Med[employer]onic dual chamber pacemaker with Nl Fx. 7. Right foot ulcer. Antibiotic per Dr. Landis. FU by Dr. Huizar 8. History of liver transplant on Prograf 9. Respiratory failure, ? etiology anaphylaxis. S/P Emergency tracheostomy. Weaned off the vent on T Piece 10. Pleural effusion. FU Dr. Mendoza 11. Dysphagia, S/P PEG Dispo planning Jacqueline when approved Subjective Cardiovascular: Reports: no symptoms Respiratory: Reports: no symptoms Gastrointestinal/Abdominal: Reports: no symptoms Genitourinary: Reports: no symptoms Subjective COVERAGE FOR [employer] Objective Last 24 Hour Vital Signs Date Time Temp Pulse Resp B/P (MAP) Pulse Ox O2 Delivery O2 Flow Rate FiO2 12/28/18 17:06 81 22 40 12/28/18 16:00 40 12/28/18 16:00 98.2 68 21 140/72 (94) 100 12/28/18 16:00 Mechanical Ventilator 12/28/18 16:00 65 12/28/18 14:57 67 22 40 12/28/18 13:43 98.3 12/28/18 12:45 66 22 40 12/28/18 12:00 40 12/28/18 12:00 98.3 64 21 99/57 (71) 100 12/28/18 12:00 Mechanical Ventilator 12/28/18 12:00 65 12/28/18 11:15 65 22 40 12/28/18 09:47 68 163/81 12/28/18 09:15 69 23 40 12/28/18 08:00 73 12/28/18 08:00 97.2 68 28 163/81 (108) 100 12/28/18 08:00 40 12/28/18 08:00 Mechanical Ventilator 12/28/18 07:09 73 25 40 12/28/18 05:29 72 19 40 12/28/18 05:02 117/92 12/28/18 04:00 Mechanical Ventilator 12/28/18 04:00 75 12/28/18 04:00 98.2 75 24 117/92 (100) 100 12/28/18 04:00 40 12/28/18 02:57 74 21 40 12/28/18 00:55 73 21 40 12/28/18 00:00 73 12/28/18 00:00 Mechanical Ventilator 12/28/18 00:00 40 12/28/18 00:00 98.8 74 16 183/84 (117) 100 12/27/18 20:50 69 22 40 12/27/18 20:12 63 103/54 12/27/18 20:00 98.1 63 20 103/64 (77) 99 12/27/18 20:00 40 12/27/18 20:00 Mechanical Ventilator 12/27/18 20:00 67 12/27/18 18:48 65 23 40 General Appearance: no apparent distress, alert, on vent EENT: PERRL/EOMI, normal ENT inspection, TMs normal Neck: non-tender, normal alignment, supple, normal inspection Rhythm: NSR Cardiovascular: normal peripheral pulses, normal rate, regular rhythm Respiratory/Chest: chest wall non-tender, lungs clear Abdomen: normal bowel sounds, non tender, soft, no organomegaly Extremities: normal range of motion, non-tender, normal inspection Neurologic: application development team lead 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 normal, no motor/sensory deficits Intake and Output 12/27/18 12/28/18 19:00 07:00 Intake Total 720 ml 540 ml Balance 720 ml 540 ml Free Water 180 ml Tube Feeding 540 ml 540 ml # Bowel Movements 1 Laboratory Tests Test 12/28/18 03:30 White Blood Count 7.6 K/UL (4.8-10.8) Red Blood Count 3.36 M/UL (4.70-6.10) L Hemoglobin 8.4 G/DL (14.2-18.0) L Hematocrit 26.8 % (42.0-52.0) L Mean Corpuscular Volume 80 FL (80-99) Mean Corpuscular Hemoglobin 25.0 PG (27.0-31.0) L Mean Corpuscular Hemoglobin Concent 31.3 G/DL (32.0-36.0) L Red Cell Distribution Width 16.8 % (11.6-14.8) H Platelet Count 241 K/UL (150-450) Mean Platelet Volume 7.1 FL (6.5-10.1) Neutrophils (%) (Auto) 72.9 % (45.0-75.0) Lymphocytes (%) (Auto) 15.9 % (20.0-45.0) L Monocytes (%) (Auto) 10.4 % (1.0-10.0) H Eosinophils (%) (Auto) 0.0 % (0.0-3.0) Basophils (%) (Auto) 0.7 % (0.0-2.0) Sodium Level 131 MMOL/L (136-145) L Potassium Level 4.3 MMOL/L (3.5-5.1) Chloride Level 91 MMOL/L (98-107) L Carbon Dioxide Level 31 MMOL/L (21-32) Anion Gap 9 mmol/L (5-15) Blood Urea Nitrogen 71 mg/dL (7-18) H Creatinine 6.4 MG/DL (0.55-1.30) H Estimat Glomerular Filtration Rate 8.8 mL/min (>60) Glucose Level 120 MG/DL (74-106) H Uric Acid 4.7 MG/DL (2.6-7.2) Calcium Level 9.1 MG/DL (8.5-10.1) Calcium (Send out) Pending Total Bilirubin 0.3 MG/DL (0.2-1.0) Aspartate Amino Transf (AST/SGOT) 13 U/L (15-37) L Alanine Aminotransferase (ALT/SGPT) 6 U/L (12-78) L Alkaline Phosphatase 144 U/L (46-116) H C-Reactive Protein, Quantitative 14.5 mg/dL (0.00-0.90) H Pro-B-Type Natriuretic Peptide > 45819 pg/mL (0-125) H Total Protein 6.8 G/DL (6.4-8.2) Albumin 2.0 G/DL (3.4-5.0) L Globulin 4.8 g/dL Albumin/Globulin Ratio 0.4 (1.0-2.7) L Parathyroid Hormone (Intact) Pending Dhruv Jin MD December 28, 2018 17:47
--- NOTE | 2018-12-28 19:04 | Neurology Progress Note ---
Interim History Interim History Interim History Mr. Restrepo feels about the same as yesterday. He is subdued today. He had HD earlier. The right heel is still painful. The right upper extremity is more swollen and more painful today. The right hand however has warmed up. His spirits are low. He was able to sleep a fairly well last night. He is breathing well. He feels that his strength is stable. The mind has not been completely clear. He denies any new neurologic symptoms. Review of Systems Neuro Review of Systems Benign. Objective Physical Exam Last Vital Signs Date Time Temp Pulse Resp B/P (MAP) Pulse Ox O2 Delivery O2 Flow Rate FiO2 12/28/18 17:49 127/52 12/28/18 17:06 81 22 40 12/28/18 16:00 98.2 100 12/28/18 16:00 Mechanical Ventilator Laboratory Tests Test 12/28/18 03:30 White Blood Count 7.6 K/UL (4.8-10.8) Red Blood Count 3.36 M/UL (4.70-6.10) L Hemoglobin 8.4 G/DL (14.2-18.0) L Hematocrit 26.8 % (42.0-52.0) L Mean Corpuscular Volume 80 FL (80-99) Mean Corpuscular Hemoglobin 25.0 PG (27.0-31.0) L Mean Corpuscular Hemoglobin Concent 31.3 G/DL (32.0-36.0) L Red Cell Distribution Width 16.8 % (11.6-14.8) H Platelet Count 241 K/UL (150-450) Mean Platelet Volume 7.1 FL (6.5-10.1) Neutrophils (%) (Auto) 72.9 % (45.0-75.0) Lymphocytes (%) (Auto) 15.9 % (20.0-45.0) L Monocytes (%) (Auto) 10.4 % (1.0-10.0) H Eosinophils (%) (Auto) 0.0 % (0.0-3.0) Basophils (%) (Auto) 0.7 % (0.0-2.0) Sodium Level 131 MMOL/L (136-145) L Potassium Level 4.3 MMOL/L (3.5-5.1) Chloride Level 91 MMOL/L (98-107) L Carbon Dioxide Level 31 MMOL/L (21-32) Anion Gap 9 mmol/L (5-15) Blood Urea Nitrogen 71 mg/dL (7-18) H Creatinine 6.4 MG/DL (0.55-1.30) H Estimat Glomerular Filtration Rate 8.8 mL/min (>60) Glucose Level 120 MG/DL (74-106) H Uric Acid 4.7 MG/DL (2.6-7.2) Calcium Level 9.1 MG/DL (8.5-10.1) Calcium (Send out) Pending Total Bilirubin 0.3 MG/DL (0.2-1.0) Aspartate Amino Transf (AST/SGOT) 13 U/L (15-37) L Alanine Aminotransferase (ALT/SGPT) 6 U/L (12-78) L Alkaline Phosphatase 144 U/L (46-116) H C-Reactive Protein, Quantitative 14.5 mg/dL (0.00-0.90) H Pro-B-Type Natriuretic Peptide > 69177 pg/mL (0-125) H Total Protein 6.8 G/DL (6.4-8.2) Albumin 2.0 G/DL (3.4-5.0) L Globulin 4.8 g/dL Albumin/Globulin Ratio 0.4 (1.0-2.7) L Parathyroid Hormone (Intact) Pending Neurologic Exam Objective PHYSICAL EXAMINATION: GENERAL: He is a well-developed and well-nourished, pleasant gentleman, lying in bed, connected to a ventilator via a tracheostomy. HEAD: Normocephalic and atraumatic. EENT: Examination benign. NECK: No neck rigidity was observed. He did have a tracheostomy. NEUROLOGICAL EXAMINATION: MENTAL STATUS EXAMINATION: He was awake but subdued. He was well oriented, except for the exact date. He was able to recall 3/3 words immediately and was able to remember them in 1 and 3 minutes. He was able to remember presidents Trump and Obama. SPEECH: Could not be tested, but he was able to mouth words relatively well. LANGUAGE: He was able to comprehend and express himself relatively well. CRANIAL NERVES EXAMINATION: II: The visual mckeon were intact to confrontation testing. III, IV & : The external ocular movements were full and the pupils 3 mm in diameter, equal, round, regular, and reactive sluggishly to light. V: He had normal facial sensations, and the temporales, masseters, and pterygoids functioned normally. VII: He had normal facial expressions and no facial asymmetry. VIII: Hearing was decreased bilaterally with worse hearing on the left side compared to the right. IX: The palate moved symmetrically on phonation. X: Could not be tested. XI: The sternocleidomastoids and trapezii functioned normally. XII: The tongue was in the midline without any fasciculations or atrophy. MOTOR SYSTEM: The tone was normal in all four extremities. Examination of muscle mass revealed generalized muscle wasting. Examination of power revealed G 5/5 power except for G 4+/5 power in the iliopsoas muscles bilaterally, and G 4/5 in the right ankle and toes. Power in the right upper extremity was limited by pain. Power in the right foot was also limited by pain. SENSORY EXAMINATION: He had intact sensations to light touch. Other sensory modalities could not be tested adequately. REFLEXES: 1+ and bilaterally symmetrical at the biceps, triceps, brachioradialis , and knees, 0 at both ankles. The plantar responses were flexor bilaterally. COORDINATION: He performed well on [id number] testing. STANCE & GAIT: Were deferred. Impression/Recommendations Diagnostic Impression 1. Mr. Gregg Restrepo is a 68-year-old, right-handed, gentleman with past history of multiple medical problems including hypertension, diabetes mellitus, end-stage renal disease for which he is hemodialysis dependent, prior episodes of sepsis, and prior episodes of encephalopathy, who was admitted to [facility] on October 31, 2018. Following that, he has had a stormy hospital course including pneumonia and sepsis, right foot infection, respiratory failure for which he has needed tracheostomy and in addition he has exhibited an alteration in his mental state with some waxing and waning of his mental state. 2. He feels about the same as yesterday. He is subdued today. He had HD earlier. The right heel is still painful. The right upper extremity is more swollen and more painful today. The right hand however has warmed up. His spirits are low. He was able to sleep a fairly well last night. He is breathing well. He feels that his strength is stable. The mind has not been completely clear. He denies any new neurologic symptoms. 3. On neurological examination, at this time, he is well oriented except for the exact date, his recent memory is normal. He has minimally impaired higher cognitive function. He is able to comprehend and express himself well. He does have mild G 4+/5 weakness in the iliopsoas muscles bilaterally. Power in the right upper extremity was limited by pain. Power in the right foot was also limited by pain but the weakness in the right ankle and toes is better than yesterday. He had globally diminished deep tendon reflexes with loss of ankle jerks, but no definite focal or lateralizing neurological findings. 4. His latest laboratory data on my initial evaluation revealed that he was anemic with a hemoglobin of 10.8 G. His last blood gas performed on 11/14/2018 revealed that he had a pCO2 elevated at 56.4 with a normal pO2 of 88.3 and normal pH of 7.37. His latest chemistry panel revealed that he was mildly hyponatremic with a sodium of 130, and had a chloride of 90. The BUN was elevated at 75, creatinine elevated at 7.4, glucose elevated at 156, Hemoglobin A1c elevated at 6.9%, Alkaline phosphatase elevated at 131, and ProBNP greater than 35,000. His last B12 level on 11/07/2018 was 723. His last folate on was 18.6. His last TSH on 12/06/2018 was 4.82, which is minimally elevated. 5. The CT scan of the brain performed on 11/10/2018 was benign for acute intracranial pathology. 6. The EEG done on 12/08/18 revealed left temporal dysfunction. 7. The patient's history and neurological examination are most consistent with mild multifactorial encephalopathy, which apparently waxes and wanes, but no definite focal neurological dysfunction. His encephalopathy is stable. 8. He tells me that he had a brain bleed many years ago. I did review his imaging done at [facility] a few years ago and he had closed head injuries with subarachnoid and subdural blood in the past. Recommendations 1. Continue present management. 2. Continue to correct the patient's toxic metabolic imbalances. 3. Mobilize with PT/OT. 4. Consider getting ENT evaluation for worsening hearing. 5. Observe closely. Pantera Cool M.D., M.S.P.H. Pantera Cool MD December 28, 2018 19:04
[2018-12-28 20:00] VITALS: BP 135/55
[2018-12-29] VITALS: BP 132/66
[2018-12-29] MEDS: Acetaminophen 650mg/20.3ml GT PRN (00:36)
[2018-12-29] MEDS: NovoLOG Insulin Flexpen SUBQ SCH ×5 (00:37→23:38)
--- NOTE | 2018-12-29 03:15 | Progress Note ---
DATE: 12/28/2018 HISTORY OF PRESENT ILLNESS: The patient is complaining about insomnia. His mental condition is deteriorated. He is more hopeless and helpless, depressed, has anhedonia, worthlessness, he stated that he has given up. He does not believe he is actually going to improve medically. he is not going to improve. The patient is complaining of more pain today and the patient is more in anxious. MENTAL STATUS EXAMINATION: Alert, oriented times self, place, and situation he is in. Mood is depressed. Affect is flat. Thought process, he is linear and goal oriented. Thought content, no suicidal or homicidal ideations. No delusions. No AVH. Memory is impaired. Insight and judgment is fair. ASSESSMENT: 1. Major depressive disorder. 2. Anxiety disorder. PLAN: 1. The patient will be continued on Lexapro. 2. Continue the Remeron. 3. Encouraged the nurse to keep the patient in awake during the day to regulate his sleep wake cycle. Jeffrey Lala M.D. DR: Eyal JOB#: [id number] CC:
[2018-12-29 04:00] VITALS: BP 130/72
[2018-12-29 04:58] LABS: HEMOGLOBIN 7.8 G/DL (14.2-18.0); MEAN CORPUSCULAR VOLUME 80 FL (80-99); PLATELET COUNT 241 K/UL (150-450); RED BLOOD COUNT 3.13 M/UL (4.70-6.10); RED CELL DISTRIBUTION WIDTH 16.8 % (11.6-14.8); WHITE BLOOD COUNT 7.5 K/UL (4.8-10.8)
[2018-12-29 05:28] LABS: ALANINE AMINOTRANSFERASE < 6 U/L (12-78); ALBUMIN 1.9 G/DL (3.4-5.0); ALBUMIN/GLOBULIN RATIO 0.4 (1.0-2.7); ALKALINE PHOSPHATASE 145 U/L (46-116); ANION GAP 9 mmol/L (5-15); ASPARTATE AMINO TRANSFERASE 15 U/L (15-37); BILIRUBIN,TOTAL 0.3 MG/DL (0.2-1.0); BLOOD UREA NITROGEN 57 mg/dL (7-18); CALCIUM 8.6 MG/DL (8.5-10.1); CARBON DIOXIDE 32 MMOL/L (21-32); CHLORIDE 91 MMOL/L (98-107); CREATININE 5.2 MG/DL (0.55-1.30); PHOSPHORUS 4.2 MG/DL (2.5-4.9); POTASSIUM 3.9 MMOL/L (3.5-5.1); SODIUM 131 MMOL/L (136-145)
[2018-12-29] MEDS: Nitroglycerin 2% oint pkt TOPIC SCH ×4 (05:46→17:58)
[2018-12-29 08:00] VITALS: BP 144/70
--- NOTE | 2018-12-29 10:06 | GI Progress Note ---
Assessment/Plan Problems: (1) Foot ulcer ICD Codes: L97.509 - Non-pressure chronic ulcer of other part of unspecified foot with unspecified severity SNOMED: 54129150 Qualifiers: Qualified Codes: L97.511 - Non-pressure chronic ulcer of other part of right foot limited to breakdown of skin (2) DM (diabetes mellitus) ICD Codes: E11.9 - Type 2 diabetes mellitus without complications SNOMED: 19960336 (3) Transplant ICD Codes: Z94.9 - Transplanted organ and tissue status, unspecified SNOMED: 649885711 Status: stable Status Narrative Discussed with Dr. Escalera. Assessment/Plan History of liver transplant, currently on Prograf C. difficile negative status post tracheostomy and PEG Infected G-tube site, fu ID recs would care cx >> GRAM NEGATIVE BACILLUS CT AP reviewed, Moderate to large right pleural effusion. Abdominal pelvis CT to evaluate distention cont GTFs GT site care BID/prn topical abx around GT site per ID HD per nephro cont tacrolimus prn transfusions ppi zofran prn Titrate bowel regimen follow labs supportive care The patient was seen and examined at bedside and all new and available data was reviewed in the patients chart. I agree with the above findings, impression and plan. (Patient seen earlier today. Signature stamp does not reflect patient encounter time.). - Jorge Escalera MD Subjective Subjective Limited abdominal distention and discomfort Scrotal swelling and pain Objective Last 24 Hour Vital Signs Date Time Temp Pulse Resp B/P (MAP) Pulse Ox O2 Delivery O2 Flow Rate FiO2 12/29/18 09:15 62 19 40 12/29/18 08:00 97.9 65 19 144/70 (94) 100 12/29/18 07:15 69 18 40 12/29/18 05:30 63 20 40 12/29/18 04:00 67 12/29/18 04:00 98.2 70 18 130/72 (91) 100 12/29/18 04:00 40 12/29/18 04:00 Mechanical Ventilator 12/29/18 03:18 67 19 40 12/29/18 01:46 69 19 40 12/29/18 00:00 40 12/29/18 00:00 97.9 70 19 132/66 (88) 100 12/29/18 00:00 Mechanical Ventilator 5/13/19 23:30 72 23 40 12/28/18 21:09 74 20 40 12/28/18 21:06 67 135/55 12/28/18 20:00 Mechanical Ventilator 12/28/18 20:00 98.0 67 18 135/55 (81) 100 12/28/18 20:00 40 12/28/18 20:00 65 12/28/18 19:30 70 19 40 12/28/18 17:49 127/52 12/28/18 17:06 81 22 40 12/28/18 16:00 40 12/28/18 16:00 98.2 68 21 127/52 (77) 100 12/28/18 16:00 Mechanical Ventilator 12/28/18 16:00 65 12/28/18 14:57 67 22 40 12/28/18 13:43 98.3 12/28/18 12:45 66 22 40 12/28/18 12:00 40 12/28/18 12:00 98.3 64 21 99/57 (71) 100 12/28/18 12:00 Mechanical Ventilator 12/28/18 12:00 65 12/28/18 11:15 65 22 40 Intake and Output 12/28/18 12/29/18 19:00 07:00 Intake Total 185 ml 600 ml Output Total 1800 ml Balance -1615 ml 600 ml Free Water 50 ml 60 ml Tube Feeding 135 ml 540 ml Hemodialysis UF 1800 ml # Bowel Movements 4 1 Laboratory Tests Test 12/29/18 03:15 White Blood Count 7.5 K/UL (4.8-10.8) Red Blood Count 3.13 M/UL (4.70-6.10) L Hemoglobin 7.8 G/DL (14.2-18.0) L Hematocrit 25.0 % (42.0-52.0) L Mean Corpuscular Volume 80 FL (80-99) Mean Corpuscular Hemoglobin 25.0 PG (27.0-31.0) L Mean Corpuscular Hemoglobin Concent 31.3 G/DL (32.0-36.0) L Red Cell Distribution Width 16.8 % (11.6-14.8) H Platelet Count 241 K/UL (150-450) Mean Platelet Volume 7.4 FL (6.5-10.1) Neutrophils (%) (Auto) % (45.0-75.0) Lymphocytes (%) (Auto) % (20.0-45.0) Monocytes (%) (Auto) % (1.0-10.0) Eosinophils (%) (Auto) % (0.0-3.0) Basophils (%) (Auto) % (0.0-2.0) Differential Total Cells Counted 100 Neutrophils % (Manual) 73 % (45-75) Lymphocytes % (Manual) 19 % (20-45) L Monocytes % (Manual) 8 % (1-10) Eosinophils % (Manual) 0 % (0-3) Basophils % (Manual) 0 % (0-2) Band Neutrophils 0 % (0-8) Platelet Estimate Adequate Platelet Morphology Normal Hypochromasia 1+ Anisocytosis 1+ Sodium Level 131 MMOL/L (136-145) L Potassium Level 3.9 MMOL/L (3.5-5.1) Chloride Level 91 MMOL/L (98-107) L Carbon Dioxide Level 32 MMOL/L (21-32) Anion Gap 9 mmol/L (5-15) Blood Urea Nitrogen 57 mg/dL (7-18) H Creatinine 5.2 MG/DL (0.55-1.30) H Estimat Glomerular Filtration Rate 11.1 mL/min (>60) Glucose Level 148 MG/DL (74-106) H Calcium Level 8.6 MG/DL (8.5-10.1) Phosphorus Level 4.2 MG/DL (2.5-4.9) Magnesium Level 2.2 MG/DL (1.8-2.4) Total Bilirubin 0.3 MG/DL (0.2-1.0) Aspartate Amino Transf (AST/SGOT) 15 U/L (15-37) Alanine Aminotransferase (ALT/SGPT) < 6 U/L (12-78) L Alkaline Phosphatase 145 U/L (46-116) H Total Protein 6.5 G/DL (6.4-8.2) Albumin 1.9 G/DL (3.4-5.0) L Globulin 4.6 g/dL Albumin/Globulin Ratio 0.4 (1.0-2.7) L Microbiology Date/Time Source Procedure Growth Status 12/28/18 19:30 Stool Clostridium difficile Toxin Assay - Final Complete Height (Feet): 5 Height (Inches): 4.00 Weight (Pounds): 250 General Appearance: WD/WN, no apparent distress, alert Cardiovascular: normal rate Respiratory/Chest: normal breath sounds, no respiratory distress, other - tracheostomy Abdominal Exam: normal bowel sounds, non tender, soft, GT site Extremities: normal range of motion, non-tender Objective Scrotal swelling Right upper extremity swelling Kelvin Briggs NP December 29, 2018 10:06
[2018-12-29] MEDS: Eliquis 2.5mg tablet GT SCH ×2 (10:11→17:58)
[2018-12-29] MEDS: Midodrine 10mg tab GT SCH ×3 (10:11→17:58)
[2018-12-29] MEDS: Bacitracin Oint UD TOPIC SCH ×2 (10:15→20:20)
--- NOTE | 2018-12-29 10:46 | General Progress Note ---
Assessment/Plan Status: stable Assessment/Plan: Assessment and Recs: # Acute non-occlusive dvt, right extremity ultrasound (acute non-occlusive DVT in internal jugular) --> currently is on eliquis 2.5mg po bid, which recommend to continue --> do not recommend a SVC filter --> given prior bleeding risk, hold off on heparin gtt --> vasc surgeon is aware, seek recs # Anemia of chronic disease due to underlying chronic medical issues, multifactorial as well as kidney disease --> Anemia workup has been ordered, rule out gi bleed, seen by gi, also reviewed w/u --> HAS BEEN reordered since refusing --> No evidence of hemolysis is noted, peripheral smear has been reviewed. --> Epogen can be consider if hgb downtrends --> Medications have been reviewed --> evaluate with Gi team prn --> transfuse if hgb is < 7 (will trend CBC daily) ==> hgb trend 11.2-->10.9-->10.8-->10.7-->10.2-->9.7-->9.7-->8.5-->9 # Failure to thrive is likely related to poor overall status, poor functional status --> with multiple decub ulcerations that are noted, seen by id/surgery --> s/p trach as well --> cea is wnl # Coagulopathy likely secondary to decreased Vitk dependent cofactors (high INR , PT) --> monitor closely for any evidence of bleeding. Currently is on eliquis --> VIT K on prn basis sq can be administered ==> recently has improved inr 1.2-->1.1-->1.2 # Acute respiratory failure is now s/p trach to vent --> as per surgery recs # Ground glass opacities present on imaging of lung --> with pleural effusions, s/p drainage at this time --> no evidence for malignancy is noted --> as per pulm/id # Pleural effusion --> s/p thoracentesis # Hyperkalemia --> kayxelate on prn basis per renal # Renal failure --> per renal recs, appreciated --> getting hd as per schedule # Altered level of consciousness ==> currently as per baseline # PAD off heparin gtt and now on eliquis --> per vasc and cards --> 12/22 s/p right leg angiogram with intervention --> on eliquis, continue # Gt tube cellulitis == topical abx as per id around site The timing of this note does not necessarily reflect the time of the patient was seen. Greatly appreciate consultation! Subjective Constitutional: Denies: no symptoms, chills, diaphoresis, fever, malaise, weakness, other Cardiovascular: Denies: no symptoms, chest pain, edema, irregular heart rate, lightheadedness, palpitations, syncope, other Respiratory: Denies: no symptoms, cough, orthopnea, shortness of breath, SOB with excertion, SOB at rest, sputum, stridor, wheezing, other Gastrointestinal/Abdominal: Denies: no symptoms, abdomen distended, abdominal pain, black stools, tarry stools, blood in stool, constipated, diarrhea, difficulty swallowing, nausea, poor appetite, poor fluid intake, rectal bleeding , vomiting, other Genitourinary: Denies: no symptoms, burning, discharge, frequency, flank pain, hematuria, incontinence, pain, urgency, other 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: Denies: no symptoms, anxiety, depressed, emotional problems, headache, numbness, paresthesia, pre-existing deficit, seizure, tingling, tremors, weakness, other Endocrine: Denies: no symptoms, excessive sweating, flushing, intolerance to cold, intolerance to heat, increased hunger, increased thirst, increased urine, unexplained weight gain, unexplained weight loss, other Hematologic/Lymphatic: Denies: no symptoms, anemia, easy bleeding, easy bruising, other Allergies: Coded Allergies: CEPHALEXIN (Unverified Allergy, Unknown, 02/24/14) SULFAMETHOXAZOLE (Unverified Allergy, Unknown, 02/24/14) TRIMETHOPRIM (Unverified Allergy, Unknown, 02/24/14) Subjective 11/30: comfortable, on abx, no complaints, on t-piece 12/01: to have hd done potentially tomorrow, is more alert/awake 12/02: no major bleeding, hgb remains approx 11, no changes 12/03: no events, breathing mildly better, hgb is improved 12/04: on vent/trach, no major changes, sr ekg 12/10: small amount of secretions, on trach/vent, no issues otherwise 12/11: no major issues, no complaints, labs reviewed, no sig changes 12/13: no events to report, no fevers or chills, awaiting placement 12/14: no changes, no major events to report, no fevers or chills 12/15: pending placement, getting gt feeds and hd as per renal 12/16: labs have been reviewed, cbc noted, no changes 12/17: no events, no fevers, no cp, hgb remains stable 12/18: restarted on heparin gtt, seen by pulm, cards 12/20: continues to be on heparin gtt, no bleeding reported, no f/c 12/21: hd for today, no fevers or chils, off hep gtt on eliquis 12/22: to get hd tomorrow, today is s/p right leg angiogram with intervention 12/23: hgb remins stable, no fevers or chills reported 12/24: no events, no bleeding, vitals reviewed, cbc stable 12/25: no events, no bleeding, on vent, hgb 9 12/27: no changes, no f/c, no night swearts, seen with other providers 12/28: right extremity ultrasound (acute non-occlusive DVT in internal jugular, on eliquis 12/29: no events, no night sweats, seen by gi, no bleeding Objective Last 24 Hour Vital Signs Date Time Temp Pulse Resp B/P (MAP) Pulse Ox O2 Delivery O2 Flow Rate FiO2 12/29/18 10:11 62 144/70 12/29/18 09:15 62 19 40 12/29/18 08:00 97.9 65 19 144/70 (94) 100 12/29/18 07:15 69 18 40 12/29/18 05:30 63 20 40 12/29/18 04:00 67 12/29/18 04:00 98.2 70 18 130/72 (91) 100 12/29/18 04:00 40 12/29/18 04:00 Mechanical Ventilator 12/29/18 03:18 67 19 40 12/29/18 01:46 69 19 40 12/29/18 00:00 40 12/29/18 00:00 97.9 70 19 132/66 (88) 100 12/29/18 00:00 Mechanical Ventilator 12/28/18 23:30 72 23 40 12/28/18 21:09 74 20 40 12/28/18 21:06 67 135/55 12/28/18 20:00 Mechanical Ventilator 12/28/18 20:00 98.0 67 18 135/55 (81) 100 12/28/18 20:00 40 12/28/18 20:00 65 12/28/18 19:30 70 19 40 12/28/18 17:49 127/52 12/28/18 17:06 81 22 40 12/28/18 16:00 40 12/28/18 16:00 98.2 68 21 127/52 (77) 100 12/28/18 16:00 Mechanical Ventilator 12/28/18 16:00 65 12/28/18 14:57 67 22 40 12/28/18 13:43 98.3 12/28/18 12:45 66 22 40 12/28/18 12:00 40 12/28/18 12:00 98.3 64 21 99/57 (71) 100 12/28/18 12:00 Mechanical Ventilator 12/28/18 12:00 65 12/28/18 11:15 65 22 40 Intake and Output 12/28/18 12/29/18 19:00 07:00 Intake Total 185 ml 600 ml Output Total 1800 ml Balance -1615 ml 600 ml Free Water 50 ml 60 ml Tube Feeding 135 ml 540 ml Hemodialysis UF 1800 ml # Bowel Movements 4 1 Laboratory Tests 12/29/18 03:15: White Blood Count 7.5, Red Blood Count 3.13L, Hemoglobin 7.8L, Hematocrit 25.0L , Mean Corpuscular Volume 80, Mean Corpuscular Hemoglobin 25.0L, Mean Corpuscular Hemoglobin Concent 31.3L, Red Cell Distribution Width 16.8H, Platelet Count 241, Mean Platelet Volume 7.4, Neutrophils (%) (Auto) , Lymphocytes (%) (Auto) , Monocytes (%) (Auto) , Eosinophils (%) (Auto) , Basophils (%) (Auto) , Differential Total Cells Counted 100, Neutrophils % ( Manual) 73, Lymphocytes % (Manual) 19L, Monocytes % (Manual) 8, Eosinophils % ( Manual) 0, Basophils % (Manual) 0, Band Neutrophils 0, Platelet Estimate Adequate, Platelet Morphology Normal, Hypochromasia 1+, Anisocytosis 1+, Sodium Level 131L, Potassium Level 3.9, Chloride Level 91L, Carbon Dioxide Level 32, Anion Gap 9, Blood Urea Nitrogen 57H, Creatinine 5.2H, Estimat Glomerular Filtration Rate 11.1, Glucose Level 148H, Calcium Level 8.6, Phosphorus Level 4.2, Magnesium Level 2.2, Total Bilirubin 0.3, Aspartate Amino Transf (AST/SGOT ) 15, Alanine Aminotransferase (ALT/SGPT) < 6L, Alkaline Phosphatase 145H, Total Protein 6.5, Albumin 1.9L, Globulin 4.6, Albumin/Globulin Ratio 0.4L Height (Feet): 5 Height (Inches): 4.00 Weight (Pounds): 250 Objective PE General Appearance: mild distress, moderate distress Lines, tubes and drains: peripheral HEENT: EOMI, thrush, tonsils swollen ++trach Neck: normal inspection Respiratory/Chest: decreased breath sounds, accessory muscle use Cardiovascular/Chest: tachycardia Abdomen: soft, no organomegaly, no mass, ++ peg Extremities: other Skin Exam: warm/dry, rash Neurologic: alert, responsive Zacarias Khoury MD December 29, 2018 10:46
--- NOTE | 2018-12-29 11:17 | General Progress Note ---
Assessment/Plan Status: stable Assessment/Plan: #Right heel diabetic foot ulcer without osteomyelitis #PAD -seen by Podiatry and ID -s/p Vanco x 2 weeks during HD -s/p selective RLE angio with SFA/pop stenting -continue Eliquis #Acute Resp hypercapnic failure s/p trach #Angioedema -continue trach care -Remains vent-dependant, breathing trials ongoing -Pulm following #End-stage renal disease, on dialysis #RUE edema #Anasarca,pleural effusion due to hypoalbuminemia -HD with UF per Nephrology -check venous US of RUE #Scrotal swelling and discoloration, stat US negative for torsion. Again likely due to third spacing -scrotal sling -supportive care #Coronary artery disease -continue ASA, Coreg, atorva -cardiology following #Type 2 DM -ISS #Acute metabolic encephalopathy -continue supportive care -Neurology following #history of chronic HCV infection #history of liver transplant -continue Prograf -GI following #Abdominal distension and ascites -no nausea, vomiting or tenderness -continue supportive care -GI following #Dysphagia S/p PEG with PEG site cellulitis -s/p antibiotics per ID and GI -continue local wound care Subjective Date patient seen: December 29, 2018 Time patient seen: 11:13 ROS Limited/Unobtainable: Yes Cardiovascular: Denies: chest pain Respiratory: Denies: cough Gastrointestinal/Abdominal: Reports: abdomen distended Allergies: Coded Allergies: CEPHALEXIN (Unverified Allergy, Unknown, 02/24/14) SULFAMETHOXAZOLE (Unverified Allergy, Unknown, 02/24/14) TRIMETHOPRIM (Unverified Allergy, Unknown, 02/24/14) Subjective Medicine follow up for acute resp failure, PAD, right heel infected DFU, ESRD. Remains on vent. Patient found to have right IJ DVT yesterday. Also with scrotal edema, moderate-large pleural effusion and anasarca. Objective Last 24 Hour Vital Signs Date Time Temp Pulse Resp B/P (MAP) Pulse Ox O2 Delivery O2 Flow Rate FiO2 12/29/18 10:11 62 144/70 12/29/18 09:15 62 19 40 12/29/18 08:00 97.9 65 19 144/70 (94) 100 12/29/18 07:15 69 18 40 12/29/18 05:30 63 20 40 12/29/18 04:00 67 12/29/18 04:00 98.2 70 18 130/72 (91) 100 12/29/18 04:00 40 12/29/18 04:00 Mechanical Ventilator 12/29/18 03:18 67 19 40 12/29/18 01:46 69 19 40 12/29/18 00:00 40 12/29/18 00:00 97.9 70 19 132/66 (88) 100 12/29/18 00:00 Mechanical Ventilator 12/28/18 23:30 72 23 40 12/28/18 21:09 74 20 40 12/28/18 21:06 67 135/55 12/28/18 20:00 Mechanical Ventilator 12/28/18 20:00 98.0 67 18 135/55 (81) 100 12/28/18 20:00 40 12/28/18 20:00 65 12/28/18 19:30 70 19 40 12/28/18 17:49 127/52 12/28/18 17:06 81 22 40 12/28/18 16:00 40 12/28/18 16:00 98.2 68 21 127/52 (77) 100 12/28/18 16:00 Mechanical Ventilator 12/28/18 16:00 65 12/28/18 14:57 67 22 40 12/28/18 13:43 98.3 12/28/18 12:45 66 22 40 12/28/18 12:00 40 12/28/18 12:00 98.3 64 21 99/57 (71) 100 12/28/18 12:00 Mechanical Ventilator 12/28/18 12:00 65 12/28/18 11:15 65 22 40 Intake and Output 12/28/18 12/29/18 19:00 07:00 Intake Total 185 ml 600 ml Output Total 1800 ml Balance -1615 ml 600 ml Free Water 50 ml 60 ml Tube Feeding 135 ml 540 ml Hemodialysis UF 1800 ml # Bowel Movements 4 1 Laboratory Tests 12/29/18 03:15: White Blood Count 7.5, Red Blood Count 3.13L, Hemoglobin 7.8L, Hematocrit 25.0L , Mean Corpuscular Volume 80, Mean Corpuscular Hemoglobin 25.0L, Mean Corpuscular Hemoglobin Concent 31.3L, Red Cell Distribution Width 16.8H, Platelet Count 241, Mean Platelet Volume 7.4, Neutrophils (%) (Auto) , Lymphocytes (%) (Auto) , Monocytes (%) (Auto) , Eosinophils (%) (Auto) , Basophils (%) (Auto) , Differential Total Cells Counted 100, Neutrophils % ( Manual) 73, Lymphocytes % (Manual) 19L, Monocytes % (Manual) 8, Eosinophils % ( Manual) 0, Basophils % (Manual) 0, Band Neutrophils 0, Platelet Estimate Adequate, Platelet Morphology Normal, Hypochromasia 1+, Anisocytosis 1+, Sodium Level 131L, Potassium Level 3.9, Chloride Level 91L, Carbon Dioxide Level 32, Anion Gap 9, Blood Urea Nitrogen 57H, Creatinine 5.2H, Estimat Glomerular Filtration Rate 11.1, Glucose Level 148H, Calcium Level 8.6, Phosphorus Level 4.2, Magnesium Level 2.2, Total Bilirubin 0.3, Aspartate Amino Transf (AST/SGOT ) 15, Alanine Aminotransferase (ALT/SGPT) < 6L, Alkaline Phosphatase 145H, Total Protein 6.5, Albumin 1.9L, Globulin 4.6, Albumin/Globulin Ratio 0.4L Height (Feet): 5 Height (Inches): 4.00 Weight (Pounds): 250 General Appearance: no apparent distress, alert Neck: normal alignment, supple Cardiovascular: normal rate, regular rhythm Respiratory/Chest: lungs clear, normal breath sounds Abdomen: non tender, soft, distended Dennis Branham MD December 29, 2018 11:17
[2018-12-29] MEDS: HYDROcodone/Acetamin 5/325 tab GT PRN ×2 (12:18→20:19)
--- NOTE | 2018-12-29 13:39 | Pulmonology Progress Note ---
Assessment/Plan Assessment/Plan 1. Resp failure, hypercapneic 2. End-stage renal disease, on dialysis, status post multiple upper extremity vascular procedures. 3. Coronary artery bypass surgery. 4. Diabetes. 5. Dysphonia, tongue swelling, resolved; s/p trach PLAN: Pt refused weaning and son at bedside said he has POA and patient not competent to refuse RT did weaning and tolerated 45 min on IMV/PSV patient is clearly competent - refer to psych disc w RN I will continue to see intermittently Subjective Constitutional: Reports: fatigue Respiratory: Denies: shortness of breath Allergies: Coded Allergies: CEPHALEXIN (Unverified Allergy, Unknown, 02/24/14) SULFAMETHOXAZOLE (Unverified Allergy, Unknown, 02/24/14) TRIMETHOPRIM (Unverified Allergy, Unknown, 02/24/14) Objective Last 24 Hour Vital Signs Date Time Temp Pulse Resp B/P (MAP) Pulse Ox O2 Delivery O2 Flow Rate FiO2 12/29/18 12:53 100 12/29/18 12:48 97.9 12/29/18 12:00 Mechanical Ventilator 12/29/18 12:00 40 12/29/18 11:15 78 20 40 12/29/18 10:11 62 144/70 12/29/18 09:15 62 19 40 12/29/18 08:00 64 12/29/18 08:00 40 12/29/18 08:00 Mechanical Ventilator 12/29/18 08:00 97.9 65 19 144/70 (94) 100 12/29/18 07:15 69 18 40 12/29/18 05:30 63 20 40 12/29/18 04:00 67 12/29/18 04:00 98.2 70 18 130/72 (91) 100 12/29/18 04:00 40 12/29/18 04:00 Mechanical Ventilator 12/29/18 03:18 67 19 40 12/29/18 01:46 69 19 40 12/29/18 00:00 40 12/29/18 00:00 97.9 70 19 132/66 (88) 100 12/29/18 00:00 Mechanical Ventilator 12/28/18 23:30 72 23 40 12/28/18 21:09 74 20 40 12/28/18 21:06 67 135/55 12/28/18 20:00 Mechanical Ventilator 12/28/18 20:00 98.0 67 18 135/55 (81) 100 12/28/18 20:00 40 12/28/18 20:00 65 12/28/18 19:30 70 19 40 12/28/18 17:49 127/52 12/28/18 17:06 81 22 40 12/28/18 16:00 40 12/28/18 16:00 98.2 68 21 127/52 (77) 100 12/28/18 16:00 Mechanical Ventilator 12/28/18 16:00 65 12/28/18 14:57 67 22 40 12/28/18 13:43 98.3 Intake and Output 12/28/18 12/29/18 19:00 07:00 Intake Total 185 ml 600 ml Output Total 1800 ml Balance -1615 ml 600 ml Free Water 50 ml 60 ml Tube Feeding 135 ml 540 ml Hemodialysis UF 1800 ml # Bowel Movements 4 1 Objective trach on vent General Appearance: no acute distress HEENT: atraumatic Respiratory/Chest: lungs clear Cardiovascular: normal rate Microbiology Date/Time Source Procedure Growth Status 12/28/18 19:30 Stool Clostridium difficile Toxin Assay - Final Complete Laboratory Tests 12/29/18 03:15: White Blood Count 7.5, Red Blood Count 3.13L, Hemoglobin 7.8L, Hematocrit 25.0L , Mean Corpuscular Volume 80, Mean Corpuscular Hemoglobin 25.0L, Mean Corpuscular Hemoglobin Concent 31.3L, Red Cell Distribution Width 16.8H, Platelet Count 241, Mean Platelet Volume 7.4, Neutrophils (%) (Auto) , Lymphocytes (%) (Auto) , Monocytes (%) (Auto) , Eosinophils (%) (Auto) , Basophils (%) (Auto) , Differential Total Cells Counted 100, Neutrophils % ( Manual) 73, Lymphocytes % (Manual) 19L, Monocytes % (Manual) 8, Eosinophils % ( Manual) 0, Basophils % (Manual) 0, Band Neutrophils 0, Platelet Estimate Adequate, Platelet Morphology Normal, Hypochromasia 1+, Anisocytosis 1+, Sodium Level 131L, Potassium Level 3.9, Chloride Level 91L, Carbon Dioxide Level 32, Anion Gap 9, Blood Urea Nitrogen 57H, Creatinine 5.2H, Estimat Glomerular Filtration Rate 11.1, Glucose Level 148H, Calcium Level 8.6, Phosphorus Level 4.2, Magnesium Level 2.2, Total Bilirubin 0.3, Aspartate Amino Transf (AST/SGOT ) 15, Alanine Aminotransferase (ALT/SGPT) < 6L, Alkaline Phosphatase 145H, Total Protein 6.5, Albumin 1.9L, Globulin 4.6, Albumin/Globulin Ratio 0.4L Current Medications Medications (Trade) Dose Ordered Sig/Aleks Route PRN Reason Start Time Stop Time Status Last Admin Dose Admin Acetaminophen (Tylenol) 650 mg Q6H PRN GT Mild Pain/Temp > 100.5 12/21/18 16:00 01/20/19 15:59 12/29/18 00:36 Acetaminophen/ Hydrocodone Bitart ([place] 5/325) 1 tab Q4H PRN GT Moderate Pain (Pain Scale 4-6) 12/29/18 11:15 01/05/19 11:14 12/29/18 12:18 Apixaban (Eliquis) 2.5 mg BID GT 12/28/18 18:00 01/27/19 17:59 12/29/18 10:11 Bacitracin (Bacitracin) 1 applic EVERY 12 HOURS TOPIC 12/11/18 21:00 01/06/19 17:59 12/29/18 10:15 Carvedilol (Coreg) 3.125 mg EVERY 12 HOURS GT 12/21/18 21:00 01/03/19 20:59 12/29/18 10:11 Clotrimazole (Lotrimin) 1 applic BID TOPIC 12/07/18 18:00 01/06/19 17:59 12/29/18 10:15 Collagenase (Santyl) 1 applic DAILY TOPIC 12/29/18 09:00 01/28/19 08:59 12/29/18 10:15 Dextrose (Dextrose 50%) 25 ml Q30M PRN IV Hypoglycemia 12/01/18 19:30 12/31/18 19:29 Dextrose (Dextrose 50%) 50 ml Q30M PRN IV Hypoglycemia 12/01/18 19:30 12/31/18 19:29 Diatrizoate Meglum/ Diatrizoate Sod (Gastrografin) 60 ml NOW PRN RECTAL Radiology Procedure 12/28/18 10:30 12/30/18 23:59 Escitalopram Oxalate (Lexapro) 10 mg DAILY GT 12/18/18 09:00 01/17/19 08:59 12/29/18 10:10 Hydralazine HCl (Apresoline) 10 mg Q6H PRN GT For High Blood Pressure 12/03/18 16:45 01/02/19 16:44 12/07/18 04:47 Insulin Aspart (NovoLOG) EVERY 6 HOURS SUBQ 12/02/18 00:00 12/31/18 20:59 12/29/18 12:32 Iopamidol (Isovue-300 100ml) 100 ml NOW PRN INJ Radiology Procedure 12/28/18 10:30 12/30/18 23:59 Midodrine (Pro-Amatine) 10 mg THREE TIMES A DAY GT 12/19/18 13:00 01/18/19 12:59 12/29/18 12:23 Mirtazapine (Remeron) 15 mg BEDTIME GT 12/21/18 21:00 01/20/19 20:59 12/28/18 21:06 Nitroglycerin (Nitro-Bid) 1 inch TID@0600,1200,1800 TOPIC 12/07/18 12:00 01/06/19 11:59 12/26/18 05:36 Tacrolimus (Prograf) 2 mg MoWeFr@0000,1200 ORAL 12/28/18 00:00 01/27/19 00:00 12/28/18 12:25 Tacrolimus (Prograf) 2 mg SuTuThSa@0900,2100 ORAL 12/26/18 21:00 01/25/19 20:59 12/29/18 10:10 Saroj Mendoza MD December 29, 2018 13:39
--- NOTE | 2018-12-29 14:45 | Infectious Diseases Prog Note ---
Assessment/Plan Problems: (1) Foot ulcer Assessment & Plan: with MRSA grew out of it in the past, S/P vancomycin treatment with HD for two weeks, had multiple vascular eval with revascularization to the right leg , S/P ulcer resection by system analyst . deep ulcer culture grew MRSA and E.coli with diphtheroids , possible colonization , with no evidence of active infection as per discussion with podiatry , no need to be started on antibiotics for now . bone scan ruled out osteomyelitis of the heel before . continue local wound care as per system analyst . (2) G-tube site cellulitis Assessment & Plan: improved, still with mild erythema and tube feeding draining , culture from the G tube site previously grew pseudomonas , S/P ciprofloxacin for 7 days , continue local care as per GI. keep area clean and dry . may need tube change if continue to leak the feeding tube materials (3) Thrush, oral Assessment & Plan: continue local nystatin as needed , S/P micafungin for three weeks empirically (4) HCV antibody positive Assessment & Plan: no evidence of active infection, with undetectable viral load , suspect due to previous infection , cleared, S/P liver transplant . (5) DM (diabetes mellitus) Assessment & Plan: recommend tight glycemic control to keep blood glucose between 100-140 (6) CHF (congestive heart failure) Assessment & Plan: on HD , renal is following, monitor daily weight (7) Severe tongue swelling Assessment & Plan: improving , s/p tracheostomy to protect his airway since respiratory status worsened . now improving, pulmonary is following (8) Pleural effusion Assessment & Plan: recurrent on the right, with lung collapse , S/P thoracentesis X2 with removal of 1.5 cc of clear fluids. PREVIOUS culture were negative with negative cytology Assessment/Plan will continue to monitor patient on daily basis and make recommendations as necessary since he is high risk for recurrent infection Subjective Constitutional: Reports: no symptoms HEENT: Reports: no symptoms Respiratory: Reports: no symptoms Breasts: Reports: no symptoms Cardiovascular: Reports: no symptoms Gastrointestinal/Abdominal: Reports: no symptoms Genitourinary: Reports: no symptoms Neurologic: Reports: no symptoms Psychiatric: Reports: no symptoms Skin: Reports: no symptoms Endocrine: Reports: no symptoms Hematologic: Reports: no symptoms Musculoskeletal: Reports: pain Allergies: Coded Allergies: CEPHALEXIN (Unverified Allergy, Unknown, 02/24/14) SULFAMETHOXAZOLE (Unverified Allergy, Unknown, 02/24/14) TRIMETHOPRIM (Unverified Allergy, Unknown, 02/24/14) Subjective he was comfortable, lying in bed, denied any fever or chills, no significant secretions, no SOB . has heel pain at the surgery site with wound VAC in place , but no draining coming out Objective Vital Signs Last 24 Hour Vital Signs Date Time Temp Pulse Resp B/P (MAP) Pulse Ox O2 Delivery O2 Flow Rate FiO2 12/29/18 13:10 67 27 40 12/29/18 12:53 100 12/29/18 12:48 97.9 12/29/18 12:00 Mechanical Ventilator 12/29/18 12:00 65 12/29/18 12:00 40 12/29/18 11:15 78 20 40 12/29/18 10:11 62 144/70 12/29/18 09:15 62 19 40 12/29/18 08:00 64 12/29/18 08:00 40 12/29/18 08:00 Mechanical Ventilator 12/29/18 08:00 97.9 65 19 144/70 (94) 100 12/29/18 07:15 69 18 40 12/29/18 05:30 63 20 40 12/29/18 04:00 67 12/29/18 04:00 98.2 70 18 130/72 (91) 100 12/29/18 04:00 40 12/29/18 04:00 Mechanical Ventilator 12/29/18 03:18 67 19 40 12/29/18 01:46 69 19 40 12/29/18 00:00 40 12/29/18 00:00 97.9 70 19 132/66 (88) 100 12/29/18 00:00 Mechanical Ventilator 12/28/18 23:30 72 23 40 12/28/18 21:09 74 20 40 12/28/18 21:06 67 135/55 12/28/18 20:00 Mechanical Ventilator 12/28/18 20:00 98.0 67 18 135/55 (81) 100 12/28/18 20:00 40 12/28/18 20:00 65 12/28/18 19:30 70 19 40 12/28/18 17:49 127/52 12/28/18 17:06 81 22 40 12/28/18 16:00 40 12/28/18 16:00 98.2 68 21 127/52 (77) 100 12/28/18 16:00 Mechanical Ventilator 12/28/18 16:00 65 12/28/18 14:57 67 22 40 Height (Feet): 5 Height (Inches): 4.00 Weight (Pounds): 250 General Appearance: WD/WN, no acute distress HEENT: normocephalic, atraumatic, anicteric, mucous membranes moist, pharynx normal, supple, no JVD, status post trach Respiratory/Chest: chest wall non-tender, no respiratory distress, no accessory muscle use, decreased breath sounds, crackles/rales Cardiovascular: normal peripheral pulses, normal rate, regular rhythm, no gallop/murmur, no JVD Abdomen: normal bowel sounds, soft, non tender, no organomegaly, non distended , no mass, no scars Extremities: no cyanosis, no clubbing Skin: no rash, no lesions, ulcers 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: 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, alert, responsive Lymphatic: no neck adenopathy, no groin adenopathy Musculoskeletal: normal muscle bulk, no effusion Microbiology Date/Time Source Procedure Growth Status 12/28/18 19:30 Stool Clostridium difficile Toxin Assay - Final Complete Laboratory Tests Test 12/29/18 03:15 White Blood Count 7.5 K/UL (4.8-10.8) Red Blood Count 3.13 M/UL (4.70-6.10) L Hemoglobin 7.8 G/DL (14.2-18.0) L Hematocrit 25.0 % (42.0-52.0) L Mean Corpuscular Volume 80 FL (80-99) Mean Corpuscular Hemoglobin 25.0 PG (27.0-31.0) L Mean Corpuscular Hemoglobin Concent 31.3 G/DL (32.0-36.0) L Red Cell Distribution Width 16.8 % (11.6-14.8) H Platelet Count 241 K/UL (150-450) Mean Platelet Volume 7.4 FL (6.5-10.1) Neutrophils (%) (Auto) % (45.0-75.0) Lymphocytes (%) (Auto) % (20.0-45.0) Monocytes (%) (Auto) % (1.0-10.0) Eosinophils (%) (Auto) % (0.0-3.0) Basophils (%) (Auto) % (0.0-2.0) Differential Total Cells Counted 100 Neutrophils % (Manual) 73 % (45-75) Lymphocytes % (Manual) 19 % (20-45) L Monocytes % (Manual) 8 % (1-10) Eosinophils % (Manual) 0 % (0-3) Basophils % (Manual) 0 % (0-2) Band Neutrophils 0 % (0-8) Platelet Estimate Adequate Platelet Morphology Normal Hypochromasia 1+ Anisocytosis 1+ Sodium Level 131 MMOL/L (136-145) L Potassium Level 3.9 MMOL/L (3.5-5.1) Chloride Level 91 MMOL/L (98-107) L Carbon Dioxide Level 32 MMOL/L (21-32) Anion Gap 9 mmol/L (5-15) Blood Urea Nitrogen 57 mg/dL (7-18) H Creatinine 5.2 MG/DL (0.55-1.30) H Estimat Glomerular Filtration Rate 11.1 mL/min (>60) Glucose Level 148 MG/DL (74-106) H Calcium Level 8.6 MG/DL (8.5-10.1) Phosphorus Level 4.2 MG/DL (2.5-4.9) Magnesium Level 2.2 MG/DL (1.8-2.4) Total Bilirubin 0.3 MG/DL (0.2-1.0) Aspartate Amino Transf (AST/SGOT) 15 U/L (15-37) Alanine Aminotransferase (ALT/SGPT) < 6 U/L (12-78) L Alkaline Phosphatase 145 U/L (46-116) H Total Protein 6.5 G/DL (6.4-8.2) Albumin 1.9 G/DL (3.4-5.0) L Globulin 4.6 g/dL Albumin/Globulin Ratio 0.4 (1.0-2.7) L Current Medications Medications (Trade) Dose Ordered Sig/Aleks Route PRN Reason Start Time Stop Time Status Last Admin Dose Admin Acetaminophen (Tylenol) 650 mg Q6H PRN GT Mild Pain/Temp > 100.5 12/21/18 16:00 01/20/19 15:59 12/29/18 00:36 Acetaminophen/ Hydrocodone Bitart ([place] 5/325) 1 tab Q4H PRN GT Moderate Pain (Pain Scale 4-6) 12/29/18 11:15 01/05/19 11:14 12/29/18 12:18 Apixaban (Eliquis) 2.5 mg BID GT 12/28/18 18:00 01/27/19 17:59 12/29/18 10:11 Bacitracin (Bacitracin) 1 applic EVERY 12 HOURS TOPIC 12/11/18 21:00 01/06/19 17:59 12/29/18 10:15 Carvedilol (Coreg) 3.125 mg EVERY 12 HOURS GT 12/21/18 21:00 01/03/19 20:59 12/29/18 10:11 Clotrimazole (Lotrimin) 1 applic BID TOPIC 12/07/18 18:00 01/06/19 17:59 12/29/18 10:15 Collagenase (Santyl) 1 applic DAILY TOPIC 12/29/18 09:00 01/28/19 08:59 12/29/18 10:15 Dextrose (Dextrose 50%) 25 ml Q30M PRN IV Hypoglycemia 12/01/18 19:30 12/31/18 19:29 Dextrose (Dextrose 50%) 50 ml Q30M PRN IV Hypoglycemia 12/01/18 19:30 12/31/18 19:29 Diatrizoate Meglum/ Diatrizoate Sod (Gastrografin) 60 ml NOW PRN RECTAL Radiology Procedure 12/28/18 10:30 12/30/18 23:59 Escitalopram Oxalate (Lexapro) 10 mg DAILY GT 12/18/18 09:00 01/17/19 08:59 12/29/18 10:10 Hydralazine HCl (Apresoline) 10 mg Q6H PRN GT For High Blood Pressure 12/03/18 16:45 01/02/19 16:44 12/07/18 04:47 Insulin Aspart (NovoLOG) EVERY 6 HOURS SUBQ 12/02/18 00:00 12/31/18 20:59 12/29/18 12:32 Iopamidol (Isovue-300 100ml) 100 ml NOW PRN INJ Radiology Procedure 12/28/18 10:30 12/30/18 23:59 Midodrine (Pro-Amatine) 10 mg THREE TIMES A DAY GT 12/19/18 13:00 01/18/19 12:59 12/29/18 12:23 Mirtazapine (Remeron) 15 mg BEDTIME GT 12/21/18 21:00 01/20/19 20:59 12/28/18 21:06 Nitroglycerin (Nitro-Bid) 1 inch TID@0600,1200,1800 TOPIC 12/07/18 12:00 01/06/19 11:59 12/26/18 05:36 Tacrolimus (Prograf) 2 mg MoWeFr@0000,1200 ORAL 12/28/18 00:00 01/27/19 00:00 12/28/18 12:25 Tacrolimus (Prograf) 2 mg SuTuThSa@0900,2100 ORAL 12/26/18 21:00 01/25/19 20:59 12/29/18 10:10 Francois Landis M.D. December 29, 2018 14:45
[2018-12-29 16:00] VITALS: BP 149/79
--- NOTE | 2018-12-29 16:07 | Cardiac Electrophysiology PN ---
Assessment/Plan Assessment/Plan 1. Troponin leak due to renal failure. No CP or SOB 2. CAD. S/P CABG. On Coreg 3.125 bid, aspirin and Lipitor 3. NSVT in setting of old MT and CABG. EF 55%. Continue Coreg 4. Congestive heart failure. On hemodialysis 5. S/P Right sided Med[employer]onic dual chamber pacemaker with Nl Fx. 6. End-stage renal disease, on hemodialysis per Dr. Stevens S/P Fistulogram by Dr. Salmeron 7. Multilevel AOD LE's with non-healing Right foot ulcer. Had abdominal angiogram per Dr Salmeron Antibiotic per Dr. Landis. FU by Dr. Huizar S/P peripheral intervention by Dr. Salmeron 12/22/18 Right foot on WoundVac 8. History of liver transplant on Prograf 9. Respiratory failure, S/P tracheostomy. 10. Pleural effusion. FU Dr. Mendoza 11. Dysphagia, S/P PEG 12. Low BP, better Midodrine 10 [address] DW RN Subjective Subjective Comfortable in NAD.Awaiting placement. Right foot on WoundVac Objective Last 24 Hour Vital Signs Date Time Temp Pulse Resp B/P (MAP) Pulse Ox O2 Delivery O2 Flow Rate FiO2 12/29/18 14:40 64 23 40 12/29/18 13:10 67 27 40 12/29/18 12:53 100 12/29/18 12:48 97.9 12/29/18 12:00 Mechanical Ventilator 12/29/18 12:00 65 12/29/18 12:00 40 12/29/18 11:15 78 20 40 12/29/18 10:11 62 144/70 12/29/18 09:15 62 19 40 12/29/18 08:00 64 12/29/18 08:00 40 12/29/18 08:00 Mechanical Ventilator 12/29/18 08:00 97.9 65 19 144/70 (94) 100 12/29/18 07:15 69 18 40 12/29/18 05:30 63 20 40 12/29/18 04:00 67 12/29/18 04:00 98.2 70 18 130/72 (91) 100 12/29/18 04:00 40 12/29/18 04:00 Mechanical Ventilator 12/29/18 03:18 67 19 40 12/29/18 01:46 69 19 40 12/29/18 00:00 40 12/29/18 00:00 97.9 70 19 132/66 (88) 100 12/29/18 00:00 Mechanical Ventilator 12/28/18 23:30 72 23 40 12/28/18 21:09 74 20 40 12/28/18 21:06 67 135/55 12/28/18 20:00 Mechanical Ventilator 12/28/18 20:00 98.0 67 18 135/55 (81) 100 12/28/18 20:00 40 12/28/18 20:00 65 12/28/18 19:30 70 19 40 12/28/18 17:49 127/52 12/28/18 17:06 81 22 40 Intake and Output 12/28/18 12/29/18 19:00 07:00 Intake Total 185 ml 600 ml Output Total 1800 ml Balance -1615 ml 600 ml Free Water 50 ml 60 ml Tube Feeding 135 ml 540 ml Hemodialysis UF 1800 ml # Bowel Movements 4 1 Laboratory Tests Test 12/29/18 03:15 White Blood Count 7.5 K/UL (4.8-10.8) Red Blood Count 3.13 M/UL (4.70-6.10) L Hemoglobin 7.8 G/DL (14.2-18.0) L Hematocrit 25.0 % (42.0-52.0) L Mean Corpuscular Volume 80 FL (80-99) Mean Corpuscular Hemoglobin 25.0 PG (27.0-31.0) L Mean Corpuscular Hemoglobin Concent 31.3 G/DL (32.0-36.0) L Red Cell Distribution Width 16.8 % (11.6-14.8) H Platelet Count 241 K/UL (150-450) Mean Platelet Volume 7.4 FL (6.5-10.1) Neutrophils (%) (Auto) % (45.0-75.0) Lymphocytes (%) (Auto) % (20.0-45.0) Monocytes (%) (Auto) % (1.0-10.0) Eosinophils (%) (Auto) % (0.0-3.0) Basophils (%) (Auto) % (0.0-2.0) Differential Total Cells Counted 100 Neutrophils % (Manual) 73 % (45-75) Lymphocytes % (Manual) 19 % (20-45) L Monocytes % (Manual) 8 % (1-10) Eosinophils % (Manual) 0 % (0-3) Basophils % (Manual) 0 % (0-2) Band Neutrophils 0 % (0-8) Platelet Estimate Adequate Platelet Morphology Normal Hypochromasia 1+ Anisocytosis 1+ Sodium Level 131 MMOL/L (136-145) L Potassium Level 3.9 MMOL/L (3.5-5.1) Chloride Level 91 MMOL/L (98-107) L Carbon Dioxide Level 32 MMOL/L (21-32) Anion Gap 9 mmol/L (5-15) Blood Urea Nitrogen 57 mg/dL (7-18) H Creatinine 5.2 MG/DL (0.55-1.30) H Estimat Glomerular Filtration Rate 11.1 mL/min (>60) Glucose Level 148 MG/DL (74-106) H Calcium Level 8.6 MG/DL (8.5-10.1) Phosphorus Level 4.2 MG/DL (2.5-4.9) Magnesium Level 2.2 MG/DL (1.8-2.4) Total Bilirubin 0.3 MG/DL (0.2-1.0) Aspartate Amino Transf (AST/SGOT) 15 U/L (15-37) Alanine Aminotransferase (ALT/SGPT) < 6 U/L (12-78) L Alkaline Phosphatase 145 U/L (46-116) H Total Protein 6.5 G/DL (6.4-8.2) Albumin 1.9 G/DL (3.4-5.0) L Globulin 4.6 g/dL Albumin/Globulin Ratio 0.4 (1.0-2.7) L Microbiology Date/Time Source Procedure Growth Status 12/28/18 19:30 Stool Clostridium difficile Toxin Assay - Final Complete Objective HEAD AND NECK: No JVD. Tracheostomy intact LUNGS: Clear CARDIOVASCULAR: Irregular S1 and S2 with no gallop. Sternotomy is intact Pacemaker in the right subclavian ABDOMEN: Soft.PEG in place EXTREMITIES: 1+ pitting edema. Right heel in dressing and connected to WoundVac Shivam Sharpe MD December 29, 2018 16:07
--- NOTE | 2018-12-29 16:16 | Neurology Progress Note ---
Interim History Interim History Interim History Mr. Restrepo feels about the same. He is brighter today. The right heel is still painful. The right upper extremity is less swollen and less painful. The right hand is warm. His spirits are still low. He was able to sleep a fairly well last night. He is breathing well. He feels that his strength is stable. The mind has not been completely clear. Review of Systems Neuro Review of Systems Benign. Objective Physical Exam Last Vital Signs Date Time Temp Pulse Resp B/P (MAP) Pulse Ox O2 Delivery O2 Flow Rate FiO2 12/29/18 14:40 64 23 40 12/29/18 12:53 100 12/29/18 12:48 97.9 12/29/18 12:00 Mechanical Ventilator 12/29/18 10:11 144/70 Laboratory Tests Test 12/29/18 03:15 White Blood Count 7.5 K/UL (4.8-10.8) Red Blood Count 3.13 M/UL (4.70-6.10) L Hemoglobin 7.8 G/DL (14.2-18.0) L Hematocrit 25.0 % (42.0-52.0) L Mean Corpuscular Volume 80 FL (80-99) Mean Corpuscular Hemoglobin 25.0 PG (27.0-31.0) L Mean Corpuscular Hemoglobin Concent 31.3 G/DL (32.0-36.0) L Red Cell Distribution Width 16.8 % (11.6-14.8) H Platelet Count 241 K/UL (150-450) Mean Platelet Volume 7.4 FL (6.5-10.1) Neutrophils (%) (Auto) % (45.0-75.0) Lymphocytes (%) (Auto) % (20.0-45.0) Monocytes (%) (Auto) % (1.0-10.0) Eosinophils (%) (Auto) % (0.0-3.0) Basophils (%) (Auto) % (0.0-2.0) Differential Total Cells Counted 100 Neutrophils % (Manual) 73 % (45-75) Lymphocytes % (Manual) 19 % (20-45) L Monocytes % (Manual) 8 % (1-10) Eosinophils % (Manual) 0 % (0-3) Basophils % (Manual) 0 % (0-2) Band Neutrophils 0 % (0-8) Platelet Estimate Adequate Platelet Morphology Normal Hypochromasia 1+ Anisocytosis 1+ Sodium Level 131 MMOL/L (136-145) L Potassium Level 3.9 MMOL/L (3.5-5.1) Chloride Level 91 MMOL/L (98-107) L Carbon Dioxide Level 32 MMOL/L (21-32) Anion Gap 9 mmol/L (5-15) Blood Urea Nitrogen 57 mg/dL (7-18) H Creatinine 5.2 MG/DL (0.55-1.30) H Estimat Glomerular Filtration Rate 11.1 mL/min (>60) Glucose Level 148 MG/DL (74-106) H Calcium Level 8.6 MG/DL (8.5-10.1) Phosphorus Level 4.2 MG/DL (2.5-4.9) Magnesium Level 2.2 MG/DL (1.8-2.4) Total Bilirubin 0.3 MG/DL (0.2-1.0) Aspartate Amino Transf (AST/SGOT) 15 U/L (15-37) Alanine Aminotransferase (ALT/SGPT) < 6 U/L (12-78) L Alkaline Phosphatase 145 U/L (46-116) H Total Protein 6.5 G/DL (6.4-8.2) Albumin 1.9 G/DL (3.4-5.0) L Globulin 4.6 g/dL Albumin/Globulin Ratio 0.4 (1.0-2.7) L Neurologic Exam Objective PHYSICAL EXAMINATION: GENERAL: He is a well-developed and well-nourished, pleasant gentleman, lying in bed, connected to a ventilator via a tracheostomy. HEAD: Normocephalic and atraumatic. EENT: Examination benign. NECK: No neck rigidity was observed. He did have a tracheostomy. NEUROLOGICAL EXAMINATION: MENTAL STATUS EXAMINATION: He was awake and alert. He was fully oriented. He was able to recall 3/3 words immediately and was able to remember them in 1 and 3 minutes. He was able to remember presidents Trump and Obama. SPEECH: Could not be tested, but he was able to mouth words relatively well. LANGUAGE: He was able to comprehend and express himself relatively well. CRANIAL NERVES EXAMINATION: II: The visual mckeon were intact to confrontation testing. III, IV & : The external ocular movements were full and the pupils 3 mm in diameter, equal, round, regular, and reactive sluggishly to light. V: He had normal facial sensations, and the temporales, masseters, and pterygoids functioned normally. VII: He had normal facial expressions and no facial asymmetry. VIII: Hearing was decreased bilaterally with worse hearing on the left side compared to the right. IX: The palate moved symmetrically on phonation. X: Could not be tested. XI: The sternocleidomastoids and trapezii functioned normally. XII: The tongue was in the midline without any fasciculations or atrophy. MOTOR SYSTEM: The tone was normal in all four extremities. Examination of muscle mass revealed generalized muscle wasting. Examination of power revealed G 5/5 power except for G 4+/5 power in the iliopsoas muscles bilaterally, and G 4/5 in the right ankle and toes. Power in the right upper extremity was limited by pain. Power in the right foot was also limited by pain. SENSORY EXAMINATION: He had intact sensations to light touch. Other sensory modalities could not be tested adequately. REFLEXES: 1+ and bilaterally symmetrical at the biceps, triceps, brachioradialis , and knees, 0 at both ankles. The plantar responses were flexor bilaterally. COORDINATION: He performed well on [id number] testing. STANCE & GAIT: Were deferred. Impression/Recommendations Diagnostic Impression 1. Mr. Gregg Restrepo is a 68-year-old, right-handed, gentleman with past history of multiple medical problems including hypertension, diabetes mellitus, end-stage renal disease for which he is hemodialysis dependent, prior episodes of sepsis, and prior episodes of encephalopathy, who was admitted to [facility] on October 31, 2018. Following that, he has had a stormy hospital course including pneumonia and sepsis, right foot infection, respiratory failure for which he has needed tracheostomy and in addition he has exhibited an alteration in his mental state with some waxing and waning of his mental state. 2. He feels about the same. He is brighter today. The right heel is still painful. The right upper extremity is less swollen and less painful. The right hand is warm. His spirits are still low. He was able to sleep a fairly well last night. He is breathing well. He feels that his strength is stable. The mind has not been completely clear. 3. On neurological examination, at this time, he is fully oriented, his recent memory is normal. He has minimally impaired higher cognitive function. He is able to comprehend and express himself well. He does have mild G 4+/5 weakness in the iliopsoas muscles bilaterally. Power in the right upper extremity was limited by pain. Power in the right foot was also limited by pain but the weakness in the right ankle and toes is better than yesterday. He had globally diminished deep tendon reflexes with loss of ankle jerks, but no definite focal or lateralizing neurological findings. 4. His latest laboratory data on my initial evaluation revealed that he was anemic with a hemoglobin of 10.8 G. His last blood gas performed on 11/14/2018 revealed that he had a pCO2 elevated at 56.4 with a normal pO2 of 88.3 and normal pH of 7.37. His latest chemistry panel revealed that he was mildly hyponatremic with a sodium of 130, and had a chloride of 90. The BUN was elevated at 75, creatinine elevated at 7.4, glucose elevated at 156, Hemoglobin A1c elevated at 6.9%, Alkaline phosphatase elevated at 131, and ProBNP greater than 35,000. His last B12 level on 11/07/2018 was 723. His last folate on was 18.6. His last TSH on 12/06/2018 was 4.82, which is minimally elevated. 5. The CT scan of the brain performed on 11/10/2018 was benign for acute intracranial pathology. 6. The EEG done on 12/08/18 revealed left temporal dysfunction. 7. The patient's history and neurological examination are most consistent with mild multifactorial encephalopathy, which apparently waxes and wanes, but no definite focal neurological dysfunction. His encephalopathy is stable. 8. He tells me that he had a brain bleed many years ago. I did review his imaging done at [facility] a few years ago and he had closed head injuries with subarachnoid and subdural blood in the past. Recommendations 1. Continue present management. 2. Continue to correct the patient's toxic metabolic imbalances. 3. Mobilize with PT/OT. 4. Consider getting ENT evaluation for worsening hearing. 5. Observe closely. Irvine K. Silvina, M.D., M.S.P.H. Pantera Cool MD December 29, 2018 16:16
[2018-12-29 20:00] VITALS: BP 135/64
[2018-12-30] VITALS: BP 127/69
[2018-12-30] MEDS: HYDROcodone/Acetamin 5/325 tab GT PRN ×3 (01:32→18:15)
[2018-12-30 04:00] VITALS: BP 138/74
[2018-12-30 05:28] LABS: BASOPHILS % (AUTO) 0.6 % (0.0-2.0); HEMATOCRIT 29.1 % (42.0-52.0); HEMOGLOBIN 9.3 G/DL (14.2-18.0); MEAN CORPUSCULAR VOLUME 80 FL (80-99); MONOCYTES % (AUTO) 7.6 % (1.0-10.0); NEUTROPHILS % (AUTO) 81.8 % (45.0-75.0); PLATELET COUNT 252 K/UL (150-450); RED BLOOD COUNT 3.64 M/UL (4.70-6.10); RED CELL DISTRIBUTION WIDTH 16.5 % (11.6-14.8); WHITE BLOOD COUNT 10.3 K/UL (4.8-10.8)
[2018-12-30 05:45] LABS: ANION GAP 10 mmol/L (5-15); BLOOD UREA NITROGEN 74 mg/dL (7-18); CALCIUM 9.1 MG/DL (8.5-10.1); CARBON DIOXIDE 30 MMOL/L (21-32); CHLORIDE 90 MMOL/L (98-107); CREATININE 5.8 MG/DL (0.55-1.30); POTASSIUM 4.5 MMOL/L (3.5-5.1); SODIUM 130 MMOL/L (136-145)
[2018-12-30] MEDS: Nitroglycerin 2% oint pkt TOPIC SCH ×3 (06:52→18:00)
[2018-12-30] MEDS: NovoLOG Insulin Flexpen SUBQ SCH ×4 (06:54→23:56)
[2018-12-30 08:00] VITALS: BP 104/48
[2018-12-30] MEDS: Eliquis 2.5mg tablet GT SCH (08:16)
[2018-12-30] MEDS: Midodrine 10mg tab GT SCH ×3 (08:16→18:15)
[2018-12-30] MEDS: Bacitracin Oint UD TOPIC SCH ×2 (08:16→20:25)
--- NOTE | 2018-12-30 10:09 | GI Progress Note ---
Assessment/Plan Problems: (1) Foot ulcer ICD Codes: L97.509 - Non-pressure chronic ulcer of other part of unspecified foot with unspecified severity SNOMED: 60320610 Qualifiers: Qualified Codes: L97.511 - Non-pressure chronic ulcer of other part of right foot limited to breakdown of skin (2) DM (diabetes mellitus) ICD Codes: E11.9 - Type 2 diabetes mellitus without complications SNOMED: 06388300 (3) Transplant ICD Codes: Z94.9 - Transplanted organ and tissue status, unspecified SNOMED: 627560132 Status: unchanged Status Narrative Discussed with Dr. Escalera. Assessment/Plan History of liver transplant, currently on Prograf History of cholecystectomy status post tracheostomy and PEG Infected G-tube site, fu ID recs C. difficile negative would care cx >> GRAM NEGATIVE BACILLUS CT AP reviewed, Moderate to large right pleural effusion. Moderate Ascites. cont GTFs GT site care BID/prn topical abx around GT site per ID HD per nephro cont tacrolimus prn transfusions ppi zofran prn Titrate bowel regimen follow labs supportive care The patient was seen and examined at bedside and all new and available data was reviewed in the patients chart. I agree with the above findings, impression and plan. (Patient seen earlier today. Signature stamp does not reflect patient encounter time.). - Jorge Escalera MD Subjective Subjective Limited abdominal distention and discomfort Scrotal swelling and pain Objective Last 24 Hour Vital Signs Date Time Temp Pulse Resp B/P (MAP) Pulse Ox O2 Delivery O2 Flow Rate FiO2 12/30/18 08:15 68 104/48 12/30/18 08:00 98.7 68 22 104/48 (66) 100 12/30/18 06:40 83 22 40 12/30/18 05:19 79 25 40 12/30/18 04:00 40 12/30/18 04:00 74 12/30/18 04:00 Mechanical Ventilator 12/30/18 04:00 98.3 75 26 138/74 (95) 100 12/30/18 03:14 74 22 40 12/30/18 01:07 76 21 40 12/30/18 00:00 98.1 78 24 127/69 (88) 99 12/30/18 00:00 Mechanical Ventilator 12/29/18 23:25 77 5/14/19 23:12 76 25 40 12/29/18 21:11 70 20 40 12/29/18 20:19 68 135/64 12/29/18 20:00 Mechanical Ventilator 12/29/18 20:00 98.4 69 23 135/64 (87) 100 12/29/18 20:00 40 12/29/18 19:37 68 12/29/18 19:00 67 22 40 12/29/18 17:58 149/79 12/29/18 17:15 68 22 40 12/29/18 16:00 40 12/29/18 16:00 98.0 69 20 149/79 (102) 100 12/29/18 16:00 66 12/29/18 16:00 40 12/29/18 16:00 Mechanical Ventilator 12/29/18 14:40 64 23 40 12/29/18 13:10 67 27 40 12/29/18 12:53 100 12/29/18 12:48 97.9 12/29/18 12:00 Mechanical Ventilator 12/29/18 12:00 65 12/29/18 12:00 40 12/29/18 11:15 78 20 40 12/29/18 10:11 62 144/70 Intake and Output 12/29/18 12/30/18 19:00 07:00 Intake Total 280 ml 640 ml Balance 280 ml 640 ml Tube Feeding 180 ml 540 ml Blood Product 100 ml 100 ml # Bowel Movements 2 Laboratory Tests Test 12/30/18 03:40 White Blood Count 10.3 K/UL (4.8-10.8) Red Blood Count 3.64 M/UL (4.70-6.10) L Hemoglobin 9.3 G/DL (14.2-18.0) L Hematocrit 29.1 % (42.0-52.0) L Mean Corpuscular Volume 80 FL (80-99) Mean Corpuscular Hemoglobin 25.5 PG (27.0-31.0) L Mean Corpuscular Hemoglobin Concent 31.8 G/DL (32.0-36.0) L Red Cell Distribution Width 16.5 % (11.6-14.8) H Platelet Count 252 K/UL (150-450) Mean Platelet Volume 7.0 FL (6.5-10.1) Neutrophils (%) (Auto) 81.8 % (45.0-75.0) H Lymphocytes (%) (Auto) 10.0 % (20.0-45.0) L Monocytes (%) (Auto) 7.6 % (1.0-10.0) Eosinophils (%) (Auto) 0.0 % (0.0-3.0) Basophils (%) (Auto) 0.6 % (0.0-2.0) Sodium Level 130 MMOL/L (136-145) L Potassium Level 4.5 MMOL/L (3.5-5.1) Chloride Level 90 MMOL/L (98-107) L Carbon Dioxide Level 30 MMOL/L (21-32) Anion Gap 10 mmol/L (5-15) Blood Urea Nitrogen 74 mg/dL (7-18) H Creatinine 5.8 MG/DL (0.55-1.30) H Estimat Glomerular Filtration Rate 9.8 mL/min (>60) Glucose Level 148 MG/DL (74-106) H Calcium Level 9.1 MG/DL (8.5-10.1) Phosphorus Level 4.9 MG/DL (2.5-4.9) Height (Feet): 5 Height (Inches): 4.00 Weight (Pounds): 256 General Appearance: WD/WN, no apparent distress, alert Cardiovascular: normal rate Respiratory/Chest: normal breath sounds, no respiratory distress Abdominal Exam: normal bowel sounds, non tender, soft, distended, ascites, GT site - erythema improved Extremities: non-tender Objective Scrotal swelling Right upper extremity swelling Kelvin Briggs NP December 30, 2018 10:09
--- NOTE | 2018-12-30 10:54 | Nephrology Progress Note ---
Assessment/Plan Problem List: (1) ESRD (end stage renal disease) on dialysis (2) Foot ulcer (3) CHF (congestive heart failure) Assessment: Ej Fx 20 % (4) Pacemaker (5) Acute respiratory failure Assessment: with Co2 retention (6) G-tube site cellulitis Assessment ESRD with high K and SOB on admit Foot ulcer, likely infected High Troponin likely NSTMI Pacer , Pleural effusion s/p CABGS s/p Liver transplant Plan dialysis 65/15 labs before HD noted BP low- improved on midodrine per consultants, GI GT site infection, topical antibiotic Neuro note appreciated placement in process vascular esteban regarding heel ulcer per Dr Mcgill pain med change to dilaudid GT Now has tracheostomy and PEG Adjust BP meds add nitro paste TID Antibiotics by ID per cardio and ID Podiatry and Vascular surgical fu ? DC planning? Subjective ROS Limited/Unobtainable: No Constitutional: Reports: malaise, weakness Objective Objective Last 24 Hour Vital Signs Date Time Temp Pulse Resp B/P (MAP) Pulse Ox O2 Delivery O2 Flow Rate FiO2 12/30/18 10:30 81 20 40 12/30/18 08:30 100 12/30/18 08:30 75 22 40 12/30/18 08:15 68 104/48 12/30/18 08:00 40 12/30/18 08:00 98.7 68 22 104/48 (66) 100 12/30/18 08:00 Mechanical Ventilator 12/30/18 08:00 76 12/30/18 06:40 83 22 40 12/30/18 05:19 79 25 40 12/30/18 04:00 40 12/30/18 04:00 74 12/30/18 04:00 Mechanical Ventilator 12/30/18 04:00 98.3 75 26 138/74 (95) 100 12/30/18 03:14 74 22 40 12/30/18 01:07 76 21 40 12/30/18 00:00 98.1 78 24 127/69 (88) 99 12/30/18 00:00 Mechanical Ventilator 12/29/18 23:25 77 12/29/18 23:12 76 25 40 12/29/18 21:11 70 20 40 12/29/18 20:19 68 135/64 12/29/18 20:00 Mechanical Ventilator 12/29/18 20:00 98.4 69 23 135/64 (87) 100 12/29/18 20:00 40 12/29/18 19:37 68 12/29/18 19:00 67 22 40 12/29/18 17:58 149/79 12/29/18 17:15 68 22 40 12/29/18 16:00 40 12/29/18 16:00 98.0 69 20 149/79 (102) 100 12/29/18 16:00 66 12/29/18 16:00 40 12/29/18 16:00 Mechanical Ventilator 12/29/18 14:40 64 23 40 12/29/18 13:10 67 27 40 12/29/18 12:53 100 12/29/18 12:48 97.9 12/29/18 12:00 Mechanical Ventilator 12/29/18 12:00 65 12/29/18 12:00 40 12/29/18 11:15 78 20 40 Intake and Output 12/29/18 12/30/18 19:00 07:00 Intake Total 280 ml 640 ml Balance 280 ml 640 ml Tube Feeding 180 ml 540 ml Blood Product 100 ml 100 ml # Bowel Movements 2 Laboratory Tests 12/30/18 03:40: White Blood Count 10.3, Red Blood Count 3.64L, Hemoglobin 9.3L, Hematocrit 29.1L , Mean Corpuscular Volume 80, Mean Corpuscular Hemoglobin 25.5L, Mean Corpuscular Hemoglobin Concent 31.8L, Red Cell Distribution Width 16.5H, Platelet Count 252, Mean Platelet Volume 7.0, Neutrophils (%) (Auto) 81.8H, Lymphocytes (%) (Auto) 10.0L, Monocytes (%) (Auto) 7.6, Eosinophils (%) (Auto) 0.0, Basophils (%) (Auto) 0.6, Sodium Level 130L, Potassium Level 4.5, Chloride Level 90L, Carbon Dioxide Level 30, Anion Gap 10, Blood Urea Nitrogen 74H, Creatinine 5.8H, Estimat Glomerular Filtration Rate 9.8, Glucose Level 148H, Calcium Level 9.1, Phosphorus Level 4.9 Height (Feet): 5 Height (Inches): 4.00 Weight (Pounds): 256 General Appearance: no apparent distress Respiratory/Chest: decreased breath sounds Abdomen: distended Objective no other change Nakul Stevens MD December 30, 2018 10:54
[2018-12-30 12:00] VITALS: BP 148/105
--- NOTE | 2018-12-30 12:42 | Neurology Progress Note ---
Interim History Interim History Interim History Mr. Restrepo feels about the same. His spirits are low. The right heel is still painful. The right upper extremity is still swollen and painful. He was able to sleep a fairly well last night. He is breathing well. He feels that his strength is stable. The mind has not been completely clear. He denies any new neurological symptoms. Review of Systems Neuro Review of Systems Benign. Objective Physical Exam Last Vital Signs Date Time Temp Pulse Resp B/P (MAP) Pulse Ox O2 Delivery O2 Flow Rate FiO2 12/30/18 12:00 97.2 76 26 148/105 (119) 100 12/30/18 12:00 40 12/30/18 08:00 Mechanical Ventilator Laboratory Tests Test 12/30/18 03:40 White Blood Count 10.3 K/UL (4.8-10.8) Red Blood Count 3.64 M/UL (4.70-6.10) L Hemoglobin 9.3 G/DL (14.2-18.0) L Hematocrit 29.1 % (42.0-52.0) L Mean Corpuscular Volume 80 FL (80-99) Mean Corpuscular Hemoglobin 25.5 PG (27.0-31.0) L Mean Corpuscular Hemoglobin Concent 31.8 G/DL (32.0-36.0) L Red Cell Distribution Width 16.5 % (11.6-14.8) H Platelet Count 252 K/UL (150-450) Mean Platelet Volume 7.0 FL (6.5-10.1) Neutrophils (%) (Auto) 81.8 % (45.0-75.0) H Lymphocytes (%) (Auto) 10.0 % (20.0-45.0) L Monocytes (%) (Auto) 7.6 % (1.0-10.0) Eosinophils (%) (Auto) 0.0 % (0.0-3.0) Basophils (%) (Auto) 0.6 % (0.0-2.0) Sodium Level 130 MMOL/L (136-145) L Potassium Level 4.5 MMOL/L (3.5-5.1) Chloride Level 90 MMOL/L (98-107) L Carbon Dioxide Level 30 MMOL/L (21-32) Anion Gap 10 mmol/L (5-15) Blood Urea Nitrogen 74 mg/dL (7-18) H Creatinine 5.8 MG/DL (0.55-1.30) H Estimat Glomerular Filtration Rate 9.8 mL/min (>60) Glucose Level 148 MG/DL (74-106) H Calcium Level 9.1 MG/DL (8.5-10.1) Phosphorus Level 4.9 MG/DL (2.5-4.9) Neurologic Exam Objective PHYSICAL EXAMINATION: GENERAL: He is a well-developed and well-nourished, pleasant gentleman, lying in bed, connected to a ventilator via a tracheostomy. HEAD: Normocephalic and atraumatic. EENT: Examination benign. NECK: No neck rigidity was observed. He did have a tracheostomy. NEUROLOGICAL EXAMINATION: MENTAL STATUS EXAMINATION: He was awake and alert. He was well oriented, except for the exact date. He was able to recall 3/3 words immediately and was able to remember them in 1 and 3 minutes. He was able to remember presidents Trump and Obama. SPEECH: Could not be tested, but he was able to mouth words relatively well. LANGUAGE: He was able to comprehend and express himself relatively well. CRANIAL NERVES EXAMINATION: II: The visual mckeon were intact to confrontation testing. III, IV & : The external ocular movements were full and the pupils 3 mm in diameter, equal, round, regular, and reactive sluggishly to light. V: He had normal facial sensations, and the temporales, masseters, and pterygoids functioned normally. VII: He had normal facial expressions and no facial asymmetry. VIII: Hearing was decreased bilaterally with worse hearing on the left side compared to the right. IX: The palate moved symmetrically on phonation. X: Could not be tested. XI: The sternocleidomastoids and trapezii functioned normally. XII: The tongue was in the midline without any fasciculations or atrophy. MOTOR SYSTEM: The tone was normal in all four extremities. Examination of muscle mass revealed generalized muscle wasting. Examination of power revealed G 5/5 power except for G 4+/5 power in the iliopsoas muscles bilaterally, and G 4/5 in the right ankle and toes. Power in the right upper extremity was limited by pain. Power in the right foot was also limited by pain. SENSORY EXAMINATION: He had intact sensations to light touch. Other sensory modalities could not be tested adequately. REFLEXES: 1+ and bilaterally symmetrical at the biceps, triceps, brachioradialis , and knees, 0 at both ankles. The plantar responses were flexor bilaterally. COORDINATION: He performed well on [id number] testing. STANCE & GAIT: Were deferred. Impression/Recommendations Diagnostic Impression 1. Mr. Gregg Restrepo is a 68-year-old, right-handed, gentleman with past history of multiple medical problems including hypertension, diabetes mellitus, end-stage renal disease for which he is hemodialysis dependent, prior episodes of sepsis, and prior episodes of encephalopathy, who was admitted to [facility] on October 31, 2018. Following that, he has had a stormy hospital course including pneumonia and sepsis, right foot infection, respiratory failure for which he has needed tracheostomy and in addition he has exhibited an alteration in his mental state with some waxing and waning of his mental state. 2. He feels about the same as yesterday. His spirits are low. The right heel is still painful. The right upper extremity is still swollen and painful. He was able to sleep a fairly well last night. He is breathing well. He feels that his strength is stable. The mind has not been completely clear. He denies any new neurological symptoms. 3. On neurological examination, at this time, he is well oriented except for the exact date, his recent memory is normal. He has minimally impaired higher cognitive function. He is able to comprehend and express himself well. He does have mild G 4+/5 weakness in the iliopsoas muscles bilaterally. Power in the right upper extremity was limited by pain. Power in the right foot was also limited by pain but the weakness in the right ankle and toes is better than yesterday. He had globally diminished deep tendon reflexes with loss of ankle jerks, but no definite focal or lateralizing neurological findings. 4. His latest laboratory data on my initial evaluation revealed that he was anemic with a hemoglobin of 10.8 G. His last blood gas performed on 11/14/2018 revealed that he had a pCO2 elevated at 56.4 with a normal pO2 of 88.3 and normal pH of 7.37. His latest chemistry panel revealed that he was mildly hyponatremic with a sodium of 130, and had a chloride of 90. The BUN was elevated at 75, creatinine elevated at 7.4, glucose elevated at 156, Hemoglobin A1c elevated at 6.9%, Alkaline phosphatase elevated at 131, and ProBNP greater than 35,000. His last B12 level on 11/07/2018 was 723. His last folate on was 18.6. His last TSH on 12/06/2018 was 4.82, which is minimally elevated. 5. The CT scan of the brain performed on 11/10/2018 was benign for acute intracranial pathology. 6. The EEG done on 12/08/18 revealed left temporal dysfunction. 7. The patient's history and neurological examination are most consistent with mild multifactorial encephalopathy, which apparently waxes and wanes, but no definite focal neurological dysfunction. His encephalopathy is stable. 8. He tells me that he had a brain bleed many years ago. I did review his imaging done at [facility] a few years ago and he had closed head injuries with subarachnoid and subdural blood in the past. 9. He has also been more depressed. Recommendations 1. Continue present management. 2. Continue to correct the patient's toxic metabolic imbalances. 3. Mobilize with PT/OT. 4. Consider getting ENT evaluation for worsening hearing. 5. Psychiatric help for depression. 6. Observe. I will be out of town from 12/31/18 through 01/10/19. If any neurologic concerns arise Dr. Peyman Rios will be available at [phone]. Pantera Cool M.D., M.S.P.H. Pantera Cool MD December 30, 2018 12:42
--- NOTE | 2018-12-30 13:05 | General Progress Note ---
Assessment/Plan Assessment/Plan: #Right heel diabetic foot ulcer without osteomyelitis #PAD #Right IJ DVT -seen by Podiatry and ID -s/p Vanco x 2 weeks during HD -s/p selective RLE angio with SFA/pop stenting -continue Eliquis -Vascular Surgery and Hematology following #Acute Resp hypercapnic failure s/p trach #Angioedema -continue trach care -Remains vent-dependant, breathing trials ongoing -Pulm following #End-stage renal disease, on dialysis #RUE edema #Anasarca, ascites, scrotal edema, pleural effusion due to hypoalbuminemia -HD with UF per Nephrology #Coronary artery disease -continue ASA, Coreg, atorva -cardiology following #Type 2 DM -ISS #Acute metabolic encephalopathy -continue supportive care -Neurology following #history of chronic HCV infection #history of liver transplant -continue Prograf -GI following #Abdominal distension and ascites -no nausea, vomiting or tenderness -continue supportive care -GI following #Dysphagia S/p PEG with PEG site cellulitis -s/p antibiotics per ID and GI -continue local wound care Subjective Date patient seen: December 30, 2018 Time patient seen: 12:15 ROS Limited/Unobtainable: Yes Cardiovascular: Denies: chest pain Respiratory: Denies: cough Gastrointestinal/Abdominal: Denies: abdomen distended Allergies: Coded Allergies: CEPHALEXIN (Unverified Allergy, Unknown, 02/24/14) SULFAMETHOXAZOLE (Unverified Allergy, Unknown, 02/24/14) TRIMETHOPRIM (Unverified Allergy, Unknown, 02/24/14) Subjective Medicine follow up for acute resp failure, PAD, right heel infected DFU, ESRD, anasarca secondary to hypoalbuminemia, right IJ DVT Objective Last 24 Hour Vital Signs Date Time Temp Pulse Resp B/P (MAP) Pulse Ox O2 Delivery O2 Flow Rate FiO2 12/30/18 12:00 97.2 76 26 148/105 (119) 100 12/30/18 12:00 40 12/30/18 12:00 148/105 12/30/18 10:30 81 20 40 12/30/18 08:30 100 12/30/18 08:30 75 22 40 12/30/18 08:15 68 104/48 12/30/18 08:00 40 12/30/18 08:00 98.7 68 22 104/48 (66) 100 12/30/18 08:00 Mechanical Ventilator 5/15/19 08:00 76 12/30/18 06:40 83 22 40 12/30/18 05:19 79 25 40 12/30/18 04:00 40 12/30/18 04:00 74 12/30/18 04:00 Mechanical Ventilator 12/30/18 04:00 98.3 75 26 138/74 (95) 100 12/30/18 03:14 74 22 40 12/30/18 01:07 76 21 40 12/30/18 00:00 98.1 78 24 127/69 (88) 99 12/30/18 00:00 Mechanical Ventilator 12/29/18 23:25 77 12/29/18 23:12 76 25 40 12/29/18 21:11 70 20 40 12/29/18 20:19 68 135/64 12/29/18 20:00 Mechanical Ventilator 12/29/18 20:00 98.4 69 23 135/64 (87) 100 12/29/18 20:00 40 12/29/18 19:37 68 12/29/18 19:00 67 22 40 12/29/18 17:58 149/79 12/29/18 17:15 68 22 40 12/29/18 16:00 40 12/29/18 16:00 98.0 69 20 149/79 (102) 100 12/29/18 16:00 66 12/29/18 16:00 40 12/29/18 16:00 Mechanical Ventilator 12/29/18 14:40 64 23 40 12/29/18 13:10 67 27 40 Intake and Output 12/29/18 12/30/18 19:00 07:00 Intake Total 280 ml 640 ml Balance 280 ml 640 ml Tube Feeding 180 ml 540 ml Blood Product 100 ml 100 ml # Bowel Movements 2 Laboratory Tests 12/30/18 03:40: White Blood Count 10.3, Red Blood Count 3.64L, Hemoglobin 9.3L, Hematocrit 29.1L , Mean Corpuscular Volume 80, Mean Corpuscular Hemoglobin 25.5L, Mean Corpuscular Hemoglobin Concent 31.8L, Red Cell Distribution Width 16.5H, Platelet Count 252, Mean Platelet Volume 7.0, Neutrophils (%) (Auto) 81.8H, Lymphocytes (%) (Auto) 10.0L, Monocytes (%) (Auto) 7.6, Eosinophils (%) (Auto) 0.0, Basophils (%) (Auto) 0.6, Sodium Level 130L, Potassium Level 4.5, Chloride Level 90L, Carbon Dioxide Level 30, Anion Gap 10, Blood Urea Nitrogen 74H, Creatinine 5.8H, Estimat Glomerular Filtration Rate 9.8, Glucose Level 148H, Calcium Level 9.1, Phosphorus Level 4.9 Height (Feet): 5 Height (Inches): 4.00 Weight (Pounds): 256 Dennis Branham MD December 30, 2018 13:05
--- NOTE | 2018-12-30 14:24 | Cardiac Electrophysiology PN ---
Assessment/Plan Assessment/Plan 1. Troponin leak due to renal failure. No CP or SOB 2. CAD. S/P CABG. On Coreg 3.125 bid, aspirin and Lipitor 3. NSVT in setting of old NH and CABG. EF 55%. Continue Coreg 4. Congestive heart failure. On hemodialysis 5. S/P Right sided Med[employer]onic dual chamber pacemaker with Nl Fx. 6. End-stage renal disease, on hemodialysis per Dr. Stevens S/P Fistulogram by Dr. Salmeron 7. Multilevel AOD LE's with non-healing Right foot ulcer. Had abdominal angiogram per Dr Salmeron Antibiotic per Dr. Landis. FU by Dr. Huizar S/P peripheral intervention by Dr. Salmeron 12/22/18 Right foot on Wound-Vac 8. History of liver transplant on Prograf 9. Respiratory failure, S/P tracheostomy. 10. Pleural effusion. FU Dr. Mendoza 11. Dysphagia, S/P PEG 12. Low BP on Midodrine 10 tid Subjective Subjective Comfortable in NAD. Awaiting placement. Getting HD Objective Last 24 Hour Vital Signs Date Time Temp Pulse Resp B/P (MAP) Pulse Ox O2 Delivery O2 Flow Rate FiO2 12/30/18 13:20 82 21 40 12/30/18 12:00 97.2 76 26 148/105 (119) 100 12/30/18 12:00 40 12/30/18 12:00 148/105 12/30/18 11:46 74 12/30/18 10:30 81 20 40 12/30/18 08:30 100 12/30/18 08:30 75 22 40 12/30/18 08:15 68 104/48 12/30/18 08:00 40 12/30/18 08:00 98.7 68 22 104/48 (66) 100 12/30/18 08:00 Mechanical Ventilator 12/30/18 08:00 76 12/30/18 06:40 83 22 40 12/30/18 05:19 79 25 40 12/30/18 04:00 40 12/30/18 04:00 74 12/30/18 04:00 Mechanical Ventilator 12/30/18 04:00 98.3 75 26 138/74 (95) 100 12/30/18 03:14 74 22 40 12/30/18 01:07 76 21 40 12/30/18 00:00 98.1 78 24 127/69 (88) 99 12/30/18 00:00 Mechanical Ventilator 12/29/18 23:25 77 12/29/18 23:12 76 25 40 12/29/18 21:11 70 20 40 12/29/18 20:19 68 135/64 12/29/18 20:00 Mechanical Ventilator 12/29/18 20:00 98.4 69 23 135/64 (87) 100 12/29/18 20:00 40 12/29/18 19:37 68 12/29/18 19:00 67 22 40 12/29/18 17:58 149/79 12/29/18 17:15 68 22 40 12/29/18 16:00 40 12/29/18 16:00 98.0 69 20 149/79 (102) 100 12/29/18 16:00 66 12/29/18 16:00 40 12/29/18 16:00 Mechanical Ventilator 12/29/18 14:40 64 23 40 Intake and Output 12/29/18 12/30/18 19:00 07:00 Intake Total 280 ml 640 ml Balance 280 ml 640 ml Tube Feeding 180 ml 540 ml Blood Product 100 ml 100 ml # Bowel Movements 2 Laboratory Tests Test 12/30/18 03:40 White Blood Count 10.3 K/UL (4.8-10.8) Red Blood Count 3.64 M/UL (4.70-6.10) L Hemoglobin 9.3 G/DL (14.2-18.0) L Hematocrit 29.1 % (42.0-52.0) L Mean Corpuscular Volume 80 FL (80-99) Mean Corpuscular Hemoglobin 25.5 PG (27.0-31.0) L Mean Corpuscular Hemoglobin Concent 31.8 G/DL (32.0-36.0) L Red Cell Distribution Width 16.5 % (11.6-14.8) H Platelet Count 252 K/UL (150-450) Mean Platelet Volume 7.0 FL (6.5-10.1) Neutrophils (%) (Auto) 81.8 % (45.0-75.0) H Lymphocytes (%) (Auto) 10.0 % (20.0-45.0) L Monocytes (%) (Auto) 7.6 % (1.0-10.0) Eosinophils (%) (Auto) 0.0 % (0.0-3.0) Basophils (%) (Auto) 0.6 % (0.0-2.0) Sodium Level 130 MMOL/L (136-145) L Potassium Level 4.5 MMOL/L (3.5-5.1) Chloride Level 90 MMOL/L (98-107) L Carbon Dioxide Level 30 MMOL/L (21-32) Anion Gap 10 mmol/L (5-15) Blood Urea Nitrogen 74 mg/dL (7-18) H Creatinine 5.8 MG/DL (0.55-1.30) H Estimat Glomerular Filtration Rate 9.8 mL/min (>60) Glucose Level 148 MG/DL (74-106) H Calcium Level 9.1 MG/DL (8.5-10.1) Phosphorus Level 4.9 MG/DL (2.5-4.9) Microbiology Date/Time Source Procedure Growth Status 12/28/18 19:30 Stool Clostridium difficile Toxin Assay - Final Complete Objective HEAD AND NECK: No JVD. Tracheostomy intact LUNGS: Clear CARDIOVASCULAR: Irregular S1 and S2 with no gallop. Sternotomy is intact Pacemaker in the right subclavian ABDOMEN: Soft.PEG in place EXTREMITIES: 1+ pitting edema. Right heel in dressing and connected to WoundVac Shivam Sharpe MD December 30, 2018 14:24
--- NOTE | 2018-12-30 14:40 | Infectious Diseases Prog Note ---
Assessment/Plan Problems: (1) Foot ulcer Assessment & Plan: with MRSA grew out of it in the past, S/P vancomycin treatment with HD for two weeks, had multiple vascular eval with revascularization to the right leg , S/P ulcer resection by machine operator helper . deep ulcer culture grew MRSA and E.coli with diphtheroids , possible colonization , with no evidence of active infection as per discussion with podiatry , no need to be started on antibiotics for now , will continue to monitor clinically and make recommendations as necessary . bone scan ruled out osteomyelitis of the heel before, couldn't do an MRI since on the vent . continue local wound care as per machine operator helper . (2) G-tube site cellulitis Assessment & Plan: improved, still with mild erythema and tube feeding draining , culture from the G tube site previously grew pseudomonas , S/P ciprofloxacin for 7 days , continue local care as per GI. keep area clean and dry . may need tube change if continue to leak the feeding tube materials (3) Thrush, oral Assessment & Plan: continue local nystatin as needed , S/P micafungin for three weeks empirically (4) HCV antibody positive Assessment & Plan: no evidence of active infection, with undetectable viral load , suspect due to previous infection , cleared, S/P liver transplant . (5) DM (diabetes mellitus) Assessment & Plan: recommend tight glycemic control to keep blood glucose between 100-140 (6) CHF (congestive heart failure) Assessment & Plan: on HD , renal is following, monitor daily weight (7) Severe tongue swelling Assessment & Plan: improving , s/p tracheostomy to protect his airway since respiratory status worsened . now improving, pulmonary is following (8) Pleural effusion Assessment & Plan: recurrent on the right, with lung collapse , S/P thoracentesis X2 with removal of 1.5 cc of clear fluids. PREVIOUS culture were negative with negative cytology. now repeated images showed recurrent pleural effusion again , pulmonary is following Assessment/Plan will continue to monitor patient on daily basis and make recommendations as necessary since he is high risk for recurrent infection Subjective Constitutional: Reports: no symptoms HEENT: Reports: no symptoms Respiratory: Reports: no symptoms Breasts: Reports: no symptoms Cardiovascular: Reports: no symptoms Gastrointestinal/Abdominal: Reports: no symptoms Genitourinary: Reports: no symptoms Neurologic: Reports: no symptoms Psychiatric: Reports: no symptoms Skin: Reports: no symptoms Endocrine: Reports: no symptoms Hematologic: Reports: no symptoms Musculoskeletal: Reports: no symptoms Allergies: Coded Allergies: CEPHALEXIN (Unverified Allergy, Unknown, 02/24/14) SULFAMETHOXAZOLE (Unverified Allergy, Unknown, 02/24/14) TRIMETHOPRIM (Unverified Allergy, Unknown, 02/24/14) Subjective he was comfortable, lying in bed, denied any fever or chills, no significant secretions, no SOB . has heel pain at the surgery site with wound VAC in place , but no draining coming out Objective Vital Signs Last 24 Hour Vital Signs Date Time Temp Pulse Resp B/P (MAP) Pulse Ox O2 Delivery O2 Flow Rate FiO2 12/30/18 13:20 82 21 40 12/30/18 12:00 97.2 76 26 148/105 (119) 100 12/30/18 12:00 40 12/30/18 12:00 148/105 12/30/18 11:46 74 12/30/18 10:30 81 20 40 12/30/18 08:30 100 12/30/18 08:30 75 22 40 12/30/18 08:15 68 104/48 12/30/18 08:00 40 12/30/18 08:00 98.7 68 22 104/48 (66) 100 12/30/18 08:00 Mechanical Ventilator 12/30/18 08:00 76 12/30/18 06:40 83 22 40 12/30/18 05:19 79 25 40 12/30/18 04:00 40 12/30/18 04:00 74 12/30/18 04:00 Mechanical Ventilator 12/30/18 04:00 98.3 75 26 138/74 (95) 100 12/30/18 03:14 74 22 40 12/30/18 01:07 76 21 40 12/30/18 00:00 98.1 78 24 127/69 (88) 99 12/30/18 00:00 Mechanical Ventilator 12/29/18 23:25 77 12/29/18 23:12 76 25 40 12/29/18 21:11 70 20 40 12/29/18 20:19 68 135/64 12/29/18 20:00 Mechanical Ventilator 12/29/18 20:00 98.4 69 23 135/64 (87) 100 12/29/18 20:00 40 12/29/18 19:37 68 12/29/18 19:00 67 22 40 12/29/18 17:58 149/79 12/29/18 17:15 68 22 40 12/29/18 16:00 40 12/29/18 16:00 98.0 69 20 149/79 (102) 100 12/29/18 16:00 66 12/29/18 16:00 40 12/29/18 16:00 Mechanical Ventilator 12/29/18 14:40 64 23 40 Height (Feet): 5 Height (Inches): 4.00 Weight (Pounds): 256 General Appearance: WD/WN, no acute distress HEENT: normocephalic, atraumatic, anicteric, mucous membranes moist, EOMI, pharynx normal, supple, no JVD, status post trach Respiratory/Chest: chest wall non-tender, no respiratory distress, no accessory muscle use, decreased breath sounds Cardiovascular: normal peripheral pulses, normal rate, regular rhythm, no gallop/murmur, no JVD Abdomen: normal bowel sounds, soft, non tender, no organomegaly, non distended , no mass, no scars Extremities: no cyanosis, no clubbing Skin: no rash, no lesions, no ulcers 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: alert, responsive Lymphatic: no neck adenopathy, no groin adenopathy Musculoskeletal: normal muscle bulk, no effusion Microbiology Date/Time Source Procedure Growth Status 12/28/18 19:30 Stool Clostridium difficile Toxin Assay - Final Complete Laboratory Tests Test 12/30/18 03:40 White Blood Count 10.3 K/UL (4.8-10.8) Red Blood Count 3.64 M/UL (4.70-6.10) L Hemoglobin 9.3 G/DL (14.2-18.0) L Hematocrit 29.1 % (42.0-52.0) L Mean Corpuscular Volume 80 FL (80-99) Mean Corpuscular Hemoglobin 25.5 PG (27.0-31.0) L Mean Corpuscular Hemoglobin Concent 31.8 G/DL (32.0-36.0) L Red Cell Distribution Width 16.5 % (11.6-14.8) H Platelet Count 252 K/UL (150-450) Mean Platelet Volume 7.0 FL (6.5-10.1) Neutrophils (%) (Auto) 81.8 % (45.0-75.0) H Lymphocytes (%) (Auto) 10.0 % (20.0-45.0) L Monocytes (%) (Auto) 7.6 % (1.0-10.0) Eosinophils (%) (Auto) 0.0 % (0.0-3.0) Basophils (%) (Auto) 0.6 % (0.0-2.0) Sodium Level 130 MMOL/L (136-145) L Potassium Level 4.5 MMOL/L (3.5-5.1) Chloride Level 90 MMOL/L (98-107) L Carbon Dioxide Level 30 MMOL/L (21-32) Anion Gap 10 mmol/L (5-15) Blood Urea Nitrogen 74 mg/dL (7-18) H Creatinine 5.8 MG/DL (0.55-1.30) H Estimat Glomerular Filtration Rate 9.8 mL/min (>60) Glucose Level 148 MG/DL (74-106) H Calcium Level 9.1 MG/DL (8.5-10.1) Phosphorus Level 4.9 MG/DL (2.5-4.9) Current Medications Medications (Trade) Dose Ordered Sig/Aleks Route PRN Reason Start Time Stop Time Status Last Admin Dose Admin Acetaminophen (Tylenol) 650 mg Q6H PRN GT Mild Pain/Temp > 100.5 12/21/18 16:00 01/20/19 15:59 12/29/18 00:36 Acetaminophen/ Hydrocodone Bitart ([place] 5/325) 1 tab Q4H PRN GT Moderate Pain (Pain Scale 4-6) 12/29/18 11:15 01/05/19 11:14 12/30/18 09:41 Apixaban (Eliquis) 2.5 mg BID GT 12/28/18 18:00 01/27/19 17:59 12/30/18 08:16 Bacitracin (Bacitracin) 1 applic EVERY 12 HOURS TOPIC 12/11/18 21:00 01/06/19 17:59 12/30/18 08:16 Carvedilol (Coreg) 3.125 mg EVERY 12 HOURS GT 12/21/18 21:00 01/03/19 20:59 12/29/18 20:19 Clotrimazole (Lotrimin) 1 applic BID TOPIC 12/07/18 18:00 01/06/19 17:59 12/30/18 08:18 Collagenase (Santyl) 1 applic DAILY TOPIC 12/29/18 09:00 01/28/19 08:59 12/30/18 08:17 Dextrose (Dextrose 50%) 25 ml Q30M PRN IV Hypoglycemia 12/01/18 19:30 12/31/18 19:29 Dextrose (Dextrose 50%) 50 ml Q30M PRN IV Hypoglycemia 12/01/18 19:30 12/31/18 19:29 Diatrizoate Meglum/ Diatrizoate Sod (Gastrografin) 60 ml NOW PRN RECTAL Radiology Procedure 12/28/18 10:30 12/30/18 23:59 Escitalopram Oxalate (Lexapro) 10 mg DAILY GT 12/18/18 09:00 01/17/19 08:59 12/30/18 08:16 Hydralazine HCl (Apresoline) 10 mg Q6H PRN GT For High Blood Pressure 12/03/18 16:45 01/02/19 16:44 12/07/18 04:47 Insulin Aspart (NovoLOG) EVERY 6 HOURS SUBQ 12/02/18 00:00 12/31/18 20:59 12/30/18 12:28 Iopamidol (Isovue-300 100ml) 100 ml NOW PRN INJ Radiology Procedure 12/28/18 10:30 12/30/18 23:59 Midodrine (Pro-Amatine) 10 mg THREE TIMES A DAY GT 12/19/18 13:00 01/18/19 12:59 12/30/18 12:27 Mirtazapine (Remeron) 15 mg BEDTIME GT 12/21/18 21:00 01/20/19 20:59 12/29/18 20:20 Nitroglycerin (Nitro-Bid) 1 inch TID@0600,1200,1800 TOPIC 12/07/18 12:00 01/06/19 11:59 12/29/18 17:58 Tacrolimus (Prograf) 2 mg MoWeFr@0000,1200 ORAL 12/28/18 00:00 01/27/19 00:00 12/30/18 12:27 Tacrolimus (Prograf) 2 mg SuTuThSa@0900,2100 ORAL 12/26/18 21:00 6/10/19 20:59 12/29/18 20:18 Francois Landis M.D. December 30, 2018 14:40
--- NOTE | 2018-12-30 15:28 | General Progress Note ---
Assessment/Plan Assessment/Plan: Assessment and Recs: # Acute non-occlusive dvt, right extremity ultrasound (acute non-occlusive DVT in internal jugular) --> currently is on eliquis 2.5mg po bid, which recommend to continue --> do not recommend a SVC filter --> given prior bleeding risk, hold off on heparin gtt --> vasc surgeon is aware, seek recs # Anemia of chronic disease due to underlying chronic medical issues, multifactorial as well as kidney disease --> Anemia workup has been ordered, rule out gi bleed, seen by gi, also reviewed w/u --> HAS BEEN reordered since refusing --> No evidence of hemolysis is noted, peripheral smear has been reviewed. --> Epogen can be consider if hgb downtrends --> Medications have been reviewed --> evaluate with Gi team prn --> transfuse if hgb is < 7 (will trend CBC daily) ==> hgb trend 11.2-->10.9-->10.8-->10.7-->10.2-->9.7-->9.7-->8.5-->9 # Failure to thrive is likely related to poor overall status, poor functional status --> with multiple decub ulcerations that are noted, seen by id/surgery --> s/p trach as well --> cea is wnl # Coagulopathy likely secondary to decreased Vitk dependent cofactors (high INR , PT) --> monitor closely for any evidence of bleeding. Currently is on eliquis --> VIT K on prn basis sq can be administered ==> recently has improved inr 1.2-->1.1-->1.2 # Acute respiratory failure is now s/p trach to vent --> as per surgery recs # Ground glass opacities present on imaging of lung --> with pleural effusions, s/p drainage at this time --> no evidence for malignancy is noted --> as per pulm/id # Pleural effusion --> s/p thoracentesis # Hyperkalemia --> kayxelate on prn basis per renal # Renal failure --> per renal recs, appreciated --> getting hd as per schedule # Altered level of consciousness ==> currently as per baseline # PAD off heparin gtt and now on eliquis --> per vasc and cards --> 12/22 s/p right leg angiogram with intervention --> on eliquis, continue # Gt tube cellulitis == topical abx as per id around site The timing of this note does not necessarily reflect the time of the patient was seen. Greatly appreciate consultation! Subjective Constitutional: Denies: no symptoms, chills, diaphoresis, fever, malaise, weakness, other HEENT: Denies: no symptoms, eye pain, blurred vision, tearing, double vision, ear pain, ear discharge, nose pain, nose congestion, throat pain, throat swelling, mouth pain, mouth swelling, other Cardiovascular: Denies: no symptoms, chest pain, edema, irregular heart rate, lightheadedness, palpitations, syncope, other Respiratory: Denies: no symptoms, cough, orthopnea, shortness of breath, SOB with excertion, SOB at rest, sputum, stridor, wheezing, other Genitourinary: Denies: no symptoms, burning, discharge, frequency, flank pain, hematuria, incontinence, pain, urgency, other 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: Denies: no symptoms, anxiety, depressed, emotional problems, headache, numbness, paresthesia, pre-existing deficit, seizure, tingling, tremors, weakness, other Endocrine: Denies: no symptoms, excessive sweating, flushing, intolerance to cold, intolerance to heat, increased hunger, increased thirst, increased urine, unexplained weight gain, unexplained weight loss, other Hematologic/Lymphatic: Denies: no symptoms, anemia, easy bleeding, easy bruising, other Allergies: Coded Allergies: CEPHALEXIN (Unverified Allergy, Unknown, 02/24/14) SULFAMETHOXAZOLE (Unverified Allergy, Unknown, 02/24/14) TRIMETHOPRIM (Unverified Allergy, Unknown, 02/24/14) All Systems: reviewed and negative except above Subjective 11/30: comfortable, on abx, no complaints, on t-piece 12/01: to have hd done potentially tomorrow, is more alert/awake 12/02: no major bleeding, hgb remains approx 11, no changes 12/03: no events, breathing mildly better, hgb is improved 12/04: on vent/trach, no major changes, sr ekg 12/10: small amount of secretions, on trach/vent, no issues otherwise 12/11: no major issues, no complaints, labs reviewed, no sig changes 12/13: no events to report, no fevers or chills, awaiting placement 12/14: no changes, no major events to report, no fevers or chills 12/15: pending placement, getting gt feeds and hd as per renal 12/16: labs have been reviewed, cbc noted, no changes 12/17: no events, no fevers, no cp, hgb remains stable 12/18: restarted on heparin gtt, seen by pulm, cards 12/20: continues to be on heparin gtt, no bleeding reported, no f/c 12/21: hd for today, no fevers or chils, off hep gtt on eliquis 12/22: to get hd tomorrow, today is s/p right leg angiogram with intervention 12/23: hgb remins stable, no fevers or chills reported 12/24: no events, no bleeding, vitals reviewed, cbc stable 12/25: no events, no bleeding, on vent, hgb 9 12/27: no changes, no f/c, no night swearts, seen with other providers 12/28: right extremity ultrasound (acute non-occlusive DVT in internal jugular, on eliquis 12/29: no events, no night sweats, seen by gi, no bleeding 12/30: cbc has been reviewed, no f/c, no night sweats reported Objective Last 24 Hour Vital Signs Date Time Temp Pulse Resp B/P (MAP) Pulse Ox O2 Delivery O2 Flow Rate FiO2 12/30/18 13:20 82 21 40 12/30/18 12:00 97.2 76 26 148/105 (119) 100 12/30/18 12:00 40 12/30/18 12:00 148/105 12/30/18 11:46 74 12/30/18 10:30 81 20 40 12/30/18 08:30 100 12/30/18 08:30 75 22 40 12/30/18 08:15 68 104/48 12/30/18 08:00 40 12/30/18 08:00 98.7 68 22 104/48 (66) 100 12/30/18 08:00 Mechanical Ventilator 12/30/18 08:00 76 12/30/18 06:40 83 22 40 12/30/18 05:19 79 25 40 12/30/18 04:00 40 12/30/18 04:00 74 12/30/18 04:00 Mechanical Ventilator 12/30/18 04:00 98.3 75 26 138/74 (95) 100 12/30/18 03:14 74 22 40 12/30/18 01:07 76 21 40 12/30/18 00:00 98.1 78 24 127/69 (88) 99 12/30/18 00:00 Mechanical Ventilator 12/29/18 23:25 77 12/29/18 23:12 76 25 40 12/29/18 21:11 70 20 40 12/29/18 20:19 68 135/64 12/29/18 20:00 Mechanical Ventilator 12/29/18 20:00 98.4 69 23 135/64 (87) 100 12/29/18 20:00 40 12/29/18 19:37 68 12/29/18 19:00 67 22 40 12/29/18 17:58 149/79 12/29/18 17:15 68 22 40 12/29/18 16:00 40 12/29/18 16:00 98.0 69 20 149/79 (102) 100 12/29/18 16:00 66 12/29/18 16:00 40 12/29/18 16:00 Mechanical Ventilator Intake and Output 12/29/18 12/30/18 19:00 07:00 Intake Total 280 ml 640 ml Balance 280 ml 640 ml Tube Feeding 180 ml 540 ml Blood Product 100 ml 100 ml # Bowel Movements 2 Laboratory Tests 12/30/18 03:40: White Blood Count 10.3, Red Blood Count 3.64L, Hemoglobin 9.3L, Hematocrit 29.1L , Mean Corpuscular Volume 80, Mean Corpuscular Hemoglobin 25.5L, Mean Corpuscular Hemoglobin Concent 31.8L, Red Cell Distribution Width 16.5H, Platelet Count 252, Mean Platelet Volume 7.0, Neutrophils (%) (Auto) 81.8H, Lymphocytes (%) (Auto) 10.0L, Monocytes (%) (Auto) 7.6, Eosinophils (%) (Auto) 0.0, Basophils (%) (Auto) 0.6, Sodium Level 130L, Potassium Level 4.5, Chloride Level 90L, Carbon Dioxide Level 30, Anion Gap 10, Blood Urea Nitrogen 74H, Creatinine 5.8H, Estimat Glomerular Filtration Rate 9.8, Glucose Level 148H, Calcium Level 9.1, Phosphorus Level 4.9 Height (Feet): 5 Height (Inches): 4.00 Weight (Pounds): 256 Objective PE General Appearance: mild distress, moderate distress Lines, tubes and drains: peripheral HEENT: EOMI, thrush, tonsils swollen ++trach Neck: normal inspection Respiratory/Chest: decreased breath sounds, accessory muscle use Cardiovascular/Chest: tachycardia Abdomen: soft, no organomegaly, no mass, ++ peg Extremities: other Skin Exam: warm/dry, rash Neurologic: alert, responsive Zacarias Khoury MD December 30, 2018 15:28
[2018-12-30 16:00] VITALS: BP 146/96
[2018-12-30] MEDS: Metoclopramide 10mg/2ml Inj IVP PRN (18:15)
[2018-12-30 18:28] LABS: BASOPHILS % (AUTO) 0.7 % (0.0-2.0); HEMOGLOBIN 10.2 G/DL (14.2-18.0); LYMPHOCYTES % (AUTO) 8.4 % (20.0-45.0); MEAN CORPUSCULAR VOLUME 77 FL (80-99); MONOCYTES % (AUTO) 8.5 % (1.0-10.0); NEUTROPHILS % (AUTO) 82.4 % (45.0-75.0); PLATELET COUNT 243 K/UL (150-450); RED BLOOD COUNT 4.01 M/UL (4.70-6.10); RED CELL DISTRIBUTION WIDTH 15.5 % (11.6-14.8); WHITE BLOOD COUNT 10.7 K/UL (4.8-10.8)
--- NOTE | 2018-12-30 19:45 | Operative Note - Dictated ---
NOTE: INCOMPLETE DICTATION SURGEON: Gee Salmreon M.D. ANESTHESIA: General. 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 The patient continues to have obstruction of the distal runoff vessels in the right leg where he has a large heel ulcer, which may be infected and clinical partner recommended surgical intervention. The patient underwent a staged revascularization of the lower extremities as previously reported and planned to return for intervention of the distal runoff vessels which were successfully carried out and the patient is now to have surgical debridement of the heel wound by podiatry. Gee Salmeron M.D. DR: Cristina JOB#: [id number] CC:
[2018-12-30 20:00] VITALS: BP 154/0
[2018-12-31] VITALS: BP 119/66
[2018-12-31 04:00] VITALS: BP 148/72
[2018-12-31] MEDS: Metoclopramide 10mg/2ml Inj IVP PRN (04:49)
[2018-12-31] MEDS: Nitroglycerin 2% oint pkt TOPIC SCH ×3 (05:00→17:21)
[2018-12-31] MEDS: NovoLOG Insulin Flexpen SUBQ SCH ×4 (05:00→23:41)
[2018-12-31 05:17] LABS: BASOPHILS % (AUTO) 0.3 % (0.0-2.0); HEMATOCRIT 30.8 % (42.0-52.0); HEMOGLOBIN 9.5 G/DL (14.2-18.0); LYMPHOCYTES % (AUTO) 8.7 % (20.0-45.0); MEAN CORPUSCULAR VOLUME 80 FL (80-99); MONOCYTES % (AUTO) 7.1 % (1.0-10.0); NEUTROPHILS % (AUTO) 83.9 % (45.0-75.0); PLATELET COUNT 230 K/UL (150-450); RED BLOOD COUNT 3.84 M/UL (4.70-6.10); RED CELL DISTRIBUTION WIDTH 16.4 % (11.6-14.8); WHITE BLOOD COUNT 10.3 K/UL (4.8-10.8)
[2018-12-31 05:24] LABS: INR 1.1 (0.9-1.1)
[2018-12-31 05:37] LABS: ANION GAP 11 mmol/L (5-15); BLOOD UREA NITROGEN 68 mg/dL (7-18); CALCIUM 9.6 MG/DL (8.5-10.1); CARBON DIOXIDE 33 MMOL/L (21-32); CHLORIDE 90 MMOL/L (98-107); CREATININE 5.4 MG/DL (0.55-1.30); POTASSIUM 4.3 MMOL/L (3.5-5.1); SODIUM 134 MMOL/L (136-145)
[2018-12-31 08:00] VITALS: BP 153/73
[2018-12-31] MEDS: Midodrine 10mg tab GT SCH (08:01)
[2018-12-31] MEDS: Bacitracin Oint UD TOPIC SCH ×2 (08:02→20:07)
[2018-12-31 08:34] LABS: ALANINE AMINOTRANSFERASE 16 U/L (12-78); ALBUMIN 2.2 G/DL (3.4-5.0); ALKALINE PHOSPHATASE 163 U/L (46-116); ASPARTATE AMINO TRANSFERASE 17 U/L (15-37); BILIRUBIN,DIRECT < 0.1 MG/DL (0.0-0.3); BILIRUBIN,TOTAL 0.4 MG/DL (0.2-1.0); GAMMA GLUTAMYL TRANSPEPTIDASE 56 U/L (5-85); PHOSPHORUS 4.5 MG/DL (2.5-4.9)
--- NOTE | 2018-12-31 10:22 | GI Progress Note ---
Assessment/Plan Problems: (1) Foot ulcer ICD Codes: L97.509 - Non-pressure chronic ulcer of other part of unspecified foot with unspecified severity SNOMED: 01632679 Qualifiers: Qualified Codes: L97.511 - Non-pressure chronic ulcer of other part of right foot limited to breakdown of skin (2) DM (diabetes mellitus) ICD Codes: E11.9 - Type 2 diabetes mellitus without complications SNOMED: 32826944 (3) Transplant ICD Codes: Z94.9 - Transplanted organ and tissue status, unspecified SNOMED: 219852374 Status: unchanged Status Narrative Discussed with Dr. Escalera Assessment/Plan History of liver transplant, currently on Prograf History of cholecystectomy status post tracheostomy and PEG Infected G-tube site, fu ID recs C. difficile negative would care cx >> GRAM NEGATIVE BACILLUS CT AP reviewed, Moderate to large right pleural effusion. Moderate Ascites. Paracentesis today cont GTFs after procedure GT site care BID/prn topical abx around GT site per ID HD per nephro cont tacrolimus prn transfusions ppi zofran prn Titrate bowel regimen follow labs supportive care The patient was seen and examined at bedside and all new and available data was reviewed in the patients chart. I agree with the above findings, impression and plan. (Patient seen earlier today. Signature stamp does not reflect patient encounter time.). - Jorge Escalera MD Subjective Subjective Limited abdominal distention and discomfort Scrotal swelling and pain Objective Last 24 Hour Vital Signs Date Time Temp Pulse Resp B/P (MAP) Pulse Ox O2 Delivery O2 Flow Rate FiO2 12/31/18 08:53 79 26 40 12/31/18 08:02 77 153/73 12/31/18 08:00 40 12/31/18 08:00 78 12/31/18 08:00 Mechanical Ventilator 12/31/18 08:00 97.9 79 20 153/73 (99) 100 12/31/18 06:47 84 19 40 12/31/18 05:12 85 27 40 12/31/18 05:00 148/72 12/31/18 04:00 97.9 82 20 148/72 (97) 99 12/31/18 04:00 75 12/31/18 04:00 40 12/31/18 04:00 Mechanical Ventilator 12/31/18 02:58 78 19 40 12/31/18 01:25 81 22 40 12/31/18 00:00 97.2 81 19 119/66 (83) 100 12/31/18 00:00 Mechanical Ventilator 12/31/18 00:00 75 12/30/18 22:30 89 27 40 12/30/18 21:16 86 28 40 12/30/18 20:24 80 154/100 12/30/18 20:00 81 12/30/18 20:00 40 12/30/18 20:00 Mechanical Ventilator 12/30/18 20:00 97.0 80 26 154/0 (51) 100 12/30/18 19:19 81 27 40 12/30/18 18:00 146/96 12/30/18 16:40 85 20 40 12/30/18 16:00 98.0 72 26 146/96 (113) 100 12/30/18 16:00 Mechanical Ventilator 12/30/18 16:00 77 12/30/18 16:00 40 12/30/18 14:40 75 18 40 12/30/18 13:20 82 21 40 12/30/18 12:00 97.2 76 26 148/105 (119) 100 12/30/18 12:00 Mechanical Ventilator 12/30/18 12:00 40 12/30/18 12:00 148/105 12/30/18 11:46 74 12/30/18 10:30 81 20 40 Intake and Output 12/30/18 12/31/18 18:59 06:59 Intake Total 480 ml 30 ml Output Total 3000 ml 2 ml Balance -2520 ml 28 ml Free Water 0 ml 30 ml Tube Feeding 450 ml 0 ml Blood Product 30 ml Hemodialysis UF 3000 ml Other 2 ml # Bowel Movements 2 2 Laboratory Tests Test 12/30/18 17:55 12/31/18 03:45 White Blood Count 10.7 K/UL (4.8-10.8) 10.3 K/UL (4.8-10.8) Red Blood Count 4.01 M/UL (4.70-6.10) L 3.84 M/UL (4.70-6.10) L Hemoglobin 10.2 G/DL (14.2-18.0) L 9.5 G/DL (14.2-18.0) L Hematocrit 31.0 % (42.0-52.0) L 30.8 % (42.0-52.0) L Mean Corpuscular Volume 77 FL (80-99) L 80 FL (80-99) Mean Corpuscular Hemoglobin 25.3 PG (27.0-31.0) L 24.8 PG (27.0-31.0) L Mean Corpuscular Hemoglobin Concent 32.8 G/DL (32.0-36.0) 31.0 G/DL (32.0-36.0) L Red Cell Distribution Width 15.5 % (11.6-14.8) H 16.4 % (11.6-14.8) H Platelet Count 243 K/UL (150-450) 230 K/UL (150-450) Mean Platelet Volume 6.2 FL (6.5-10.1) L 7.0 FL (6.5-10.1) Neutrophils (%) (Auto) 82.4 % (45.0-75.0) H 83.9 % (45.0-75.0) H Lymphocytes (%) (Auto) 8.4 % (20.0-45.0) L 8.7 % (20.0-45.0) L Monocytes (%) (Auto) 8.5 % (1.0-10.0) 7.1 % (1.0-10.0) Eosinophils (%) (Auto) 0.0 % (0.0-3.0) 0.0 % (0.0-3.0) Basophils (%) (Auto) 0.7 % (0.0-2.0) 0.3 % (0.0-2.0) Prothrombin Time 11.8 SEC (9.30-11.50) H Prothromb Time International Ratio 1.1 (0.9-1.1) Activated Partial Thromboplast Time 37 SEC (23-33) H Sodium Level 134 MMOL/L (136-145) L Potassium Level 4.3 MMOL/L (3.5-5.1) Chloride Level 90 MMOL/L (98-107) L Carbon Dioxide Level 33 MMOL/L (21-32) H Anion Gap 11 mmol/L (5-15) Blood Urea Nitrogen 68 mg/dL (7-18) H Creatinine 5.4 MG/DL (0.55-1.30) H Estimat Glomerular Filtration Rate 10.6 mL/min (>60) Glucose Level 177 MG/DL (74-106) H Uric Acid 4.5 MG/DL (2.6-7.2) Calcium Level 9.6 MG/DL (8.5-10.1) Phosphorus Level 4.5 MG/DL (2.5-4.9) Magnesium Level 2.4 MG/DL (1.8-2.4) Total Bilirubin 0.4 MG/DL (0.2-1.0) Direct Bilirubin < 0.1 MG/DL (0.0-0.3) Gamma Glutamyl Transpeptidase 56 U/L (5-85) Aspartate Amino Transf (AST/SGOT) 17 U/L (15-37) Alanine Aminotransferase (ALT/SGPT) 16 U/L (12-78) Alkaline Phosphatase 163 U/L (46-116) H Total Protein 7.2 G/DL (6.4-8.2) Albumin 2.2 G/DL (3.4-5.0) L Height (Feet): 5 Height (Inches): 4.00 Weight (Pounds): 249 General Appearance: WD/WN, no apparent distress, alert Cardiovascular: normal rate Respiratory/Chest: normal breath sounds, no respiratory distress Abdominal Exam: normal bowel sounds, non tender, soft Extremities: normal range of motion, non-tender Objective Scrotal swelling Right upper extremity swelling Kelvin Briggs NP December 31, 2018 10:22
--- NOTE | 2018-12-31 10:33 | Cardiac Electrophysiology PN ---
Assessment/Plan Assessment/Plan 1. Troponin leak due to renal failure. No CP or SOB 2. CAD. S/P CABG. On Coreg 3.125 bid, aspirin and Lipitor 3. NSVT in setting of old TX and CABG. EF 55%. Continue Coreg 4. Congestive heart failure. On hemodialysis 5. S/P Right sided Medtronic dual chamber pacemaker with Nl Fx. 6. End-stage renal disease, on hemodialysis per Dr. Stevens S/P Fistulogram by Dr. Salmeron 7. Multilevel AOD LE's with non-healing Right foot ulcer. Had abdominal angiogram per Dr Salmeron Antibiotic per Dr. Landis. FU by Dr. Huizar S/P peripheral intervention by Dr. Salmeron 12/22/18 Right foot on Wound-Vac 8. History of liver transplant on Prograf 9. Respiratory failure, S/P tracheostomy. 10. Pleural effusion. FU Dr. Mendoza 11. Dysphagia, S/P PEG 12. Low BP. BP now in 140-150s. Decrease Midodrine 5 bid Subjective Subjective Comfortable in NAD. Awaiting placement. Had HD yesterday. BP now running 140- 150s Objective Last 24 Hour Vital Signs Date Time Temp Pulse Resp B/P (MAP) Pulse Ox O2 Delivery O2 Flow Rate FiO2 12/31/18 08:53 79 26 40 12/31/18 08:02 77 153/73 12/31/18 08:00 40 12/31/18 08:00 78 12/31/18 08:00 Mechanical Ventilator 12/31/18 08:00 97.9 79 20 153/73 (99) 100 12/31/18 06:47 84 19 40 12/31/18 05:12 85 27 40 12/31/18 05:00 148/72 12/31/18 04:00 97.9 82 20 148/72 (97) 99 12/31/18 04:00 75 12/31/18 04:00 40 12/31/18 04:00 Mechanical Ventilator 12/31/18 02:58 78 19 40 12/31/18 01:25 81 22 40 12/31/18 00:00 97.2 81 19 119/66 (83) 100 12/31/18 00:00 Mechanical Ventilator 12/31/18 00:00 75 12/30/18 22:30 89 27 40 12/30/18 21:16 86 28 40 12/30/18 20:24 80 154/100 12/30/18 20:00 81 12/30/18 20:00 40 12/30/18 20:00 Mechanical Ventilator 12/30/18 20:00 97.0 80 26 154/0 (51) 100 12/30/18 19:19 81 27 40 12/30/18 18:00 146/96 12/30/18 16:40 85 20 40 12/30/18 16:00 98.0 72 26 146/96 (113) 100 12/30/18 16:00 Mechanical Ventilator 12/30/18 16:00 77 12/30/18 16:00 40 12/30/18 14:40 75 18 40 12/30/18 13:20 82 21 40 12/30/18 12:00 97.2 76 26 148/105 (119) 100 12/30/18 12:00 Mechanical Ventilator 12/30/18 12:00 40 12/30/18 12:00 148/105 12/30/18 11:46 74 Intake and Output 12/30/18 12/31/18 18:59 06:59 Intake Total 480 ml 30 ml Output Total 3000 ml 2 ml Balance -2520 ml 28 ml Free Water 0 ml 30 ml Tube Feeding 450 ml 0 ml Blood Product 30 ml Hemodialysis UF 3000 ml Other 2 ml # Bowel Movements 2 2 Laboratory Tests Test 12/30/18 17:55 12/31/18 03:45 White Blood Count 10.7 K/UL (4.8-10.8) 10.3 K/UL (4.8-10.8) Red Blood Count 4.01 M/UL (4.70-6.10) L 3.84 M/UL (4.70-6.10) L Hemoglobin 10.2 G/DL (14.2-18.0) L 9.5 G/DL (14.2-18.0) L Hematocrit 31.0 % (42.0-52.0) L 30.8 % (42.0-52.0) L Mean Corpuscular Volume 77 FL (80-99) L 80 FL (80-99) Mean Corpuscular Hemoglobin 25.3 PG (27.0-31.0) L 24.8 PG (27.0-31.0) L Mean Corpuscular Hemoglobin Concent 32.8 G/DL (32.0-36.0) 31.0 G/DL (32.0-36.0) L Red Cell Distribution Width 15.5 % (11.6-14.8) H 16.4 % (11.6-14.8) H Platelet Count 243 K/UL (150-450) 230 K/UL (150-450) Mean Platelet Volume 6.2 FL (6.5-10.1) L 7.0 FL (6.5-10.1) Neutrophils (%) (Auto) 82.4 % (45.0-75.0) H 83.9 % (45.0-75.0) H Lymphocytes (%) (Auto) 8.4 % (20.0-45.0) L 8.7 % (20.0-45.0) L Monocytes (%) (Auto) 8.5 % (1.0-10.0) 7.1 % (1.0-10.0) Eosinophils (%) (Auto) 0.0 % (0.0-3.0) 0.0 % (0.0-3.0) Basophils (%) (Auto) 0.7 % (0.0-2.0) 0.3 % (0.0-2.0) Prothrombin Time 11.8 SEC (9.30-11.50) H Prothromb Time International Ratio 1.1 (0.9-1.1) Activated Partial Thromboplast Time 37 SEC (23-33) H Sodium Level 134 MMOL/L (136-145) L Potassium Level 4.3 MMOL/L (3.5-5.1) Chloride Level 90 MMOL/L (98-107) L Carbon Dioxide Level 33 MMOL/L (21-32) H Anion Gap 11 mmol/L (5-15) Blood Urea Nitrogen 68 mg/dL (7-18) H Creatinine 5.4 MG/DL (0.55-1.30) H Estimat Glomerular Filtration Rate 10.6 mL/min (>60) Glucose Level 177 MG/DL (74-106) H Uric Acid 4.5 MG/DL (2.6-7.2) Calcium Level 9.6 MG/DL (8.5-10.1) Phosphorus Level 4.5 MG/DL (2.5-4.9) Magnesium Level 2.4 MG/DL (1.8-2.4) Total Bilirubin 0.4 MG/DL (0.2-1.0) Direct Bilirubin < 0.1 MG/DL (0.0-0.3) Gamma Glutamyl Transpeptidase 56 U/L (5-85) Aspartate Amino Transf (AST/SGOT) 17 U/L (15-37) Alanine Aminotransferase (ALT/SGPT) 16 U/L (12-78) Alkaline Phosphatase 163 U/L (46-116) H Total Protein 7.2 G/DL (6.4-8.2) Albumin 2.2 G/DL (3.4-5.0) L Microbiology Date/Time Source Procedure Growth Status 12/28/18 19:30 Stool Clostridium difficile Toxin Assay - Final Complete Objective HEAD AND NECK: No JVD. Tracheostomy intact LUNGS: Clear CARDIOVASCULAR: Irregular S1 and S2 with no gallop. Sternotomy is intact Pacemaker in the right subclavian ABDOMEN: Soft.PEG in place EXTREMITIES: 1+ pitting edema. Right heel in dressing and connected to WoundVac Shivam Sharpe MD December 31, 2018 10:33
[2018-12-31 12:00] VITALS: BP_SYST 102; BP_DIAS 54; BP_DIAS 62
--- NOTE | 2018-12-31 12:51 | Diagnostic Imaging Report ---
Indications: Ascites Procedure: Informed consent obtained. Ultrasound used to localize optimal puncture site. Sterile prepping and draping over the optimum site. Local anesthesia with 1% lidocaine. Under real-time ultrasound guidance, puncture of the peritoneal space performed using paracentesis needle. Digital image was saved and archived. Stylet removed. Catheter placed to vacuum bottle suction. Fluid was aspirated. Patient tolerated procedure well, without immediate complication. Diagnostic paracentesis was also performed with sampling of the fluid for various studies as requested. Findings: Followup sonography demonstrates complete resolution of peritoneal fluid Impression: Successful ultrasound-guided paracentesis, yielding 4.1 liters of fluid
--- NOTE | 2018-12-31 15:10 | Nephrology Progress Note ---
Assessment/Plan Problem List: (1) ESRD (end stage renal disease) on dialysis (2) Foot ulcer (3) CHF (congestive heart failure) Assessment: Ej Fx 20 % (4) Pacemaker (5) Acute respiratory failure Assessment: with Co2 retention (6) G-tube site cellulitis Assessment ESRD with high K and SOB on admit Foot ulcer, likely infected High Troponin likely NSTMI Pacer , Pleural effusion s/p CABGS s/p Liver transplant Plan dialysis 01/01 labs before HD noted BP low- improved on midodrine per consultants, GI GT site infection, topical antibiotic Neuro note appreciated placement in process vascular esteban regarding heel ulcer per Dr Mcgill pain med change to dilaudid GT Now has tracheostomy and PEG Adjust BP meds add nitro paste TID Antibiotics by ID per cardio and ID Podiatry and Vascular surgical fu ? DC planning? Subjective ROS Limited/Unobtainable: No Objective Objective Last 24 Hour Vital Signs Date Time Temp Pulse Resp B/P (MAP) Pulse Ox O2 Delivery O2 Flow Rate FiO2 12/31/18 15:05 82 26 40 12/31/18 12:38 99 12/31/18 12:33 77 26 40 12/31/18 12:00 40 12/31/18 12:00 76 12/31/18 12:00 Mechanical Ventilator 12/31/18 12:00 97.5 8 20 102/54 (70) 100 12/31/18 11:13 84 26 40 12/31/18 08:53 79 26 40 12/31/18 08:02 77 153/73 12/31/18 08:00 40 12/31/18 08:00 78 12/31/18 08:00 Mechanical Ventilator 12/31/18 08:00 97.9 79 20 153/73 (99) 100 12/31/18 06:47 84 19 40 12/31/18 05:12 85 27 40 12/31/18 05:00 148/72 12/31/18 04:00 97.9 82 20 148/72 (97) 99 12/31/18 04:00 75 12/31/18 04:00 40 12/31/18 04:00 Mechanical Ventilator 12/31/18 02:58 78 19 40 12/31/18 01:25 81 22 40 12/31/18 00:00 97.2 81 19 119/66 (83) 100 12/31/18 00:00 Mechanical Ventilator 12/31/18 00:00 75 12/30/18 22:30 89 27 40 12/30/18 21:16 86 28 40 12/30/18 20:24 80 154/100 12/30/18 20:00 81 12/30/18 20:00 40 12/30/18 20:00 Mechanical Ventilator 12/30/18 20:00 97.0 80 26 154/0 (51) 100 12/30/18 19:19 81 27 40 12/30/18 18:00 146/96 12/30/18 16:40 85 20 40 12/30/18 16:00 98.0 72 26 146/96 (113) 100 12/30/18 16:00 Mechanical Ventilator 12/30/18 16:00 77 12/30/18 16:00 40 Intake and Output 12/30/18 12/31/18 19:00 07:00 Intake Total 435 ml 30 ml Output Total 3000 ml 2 ml Balance -2565 ml 28 ml Free Water 0 ml 30 ml Tube Feeding 405 ml Blood Product 30 ml Hemodialysis UF 3000 ml Other 2 ml # Bowel Movements 2 2 Laboratory Tests 12/30/18 17:55: White Blood Count 10.7, Red Blood Count 4.01L, Hemoglobin 10.2L, Hematocrit 31.0L, Mean Corpuscular Volume 77L, Mean Corpuscular Hemoglobin 25.3L, Mean Corpuscular Hemoglobin Concent 32.8, Red Cell Distribution Width 15.5H, Platelet Count 243, Mean Platelet Volume 6.2L, Neutrophils (%) (Auto) 82.4H, Lymphocytes (%) (Auto) 8.4L, Monocytes (%) (Auto) 8.5, Eosinophils (%) (Auto) 0.0, Basophils (%) (Auto) 0.7 12/31/18 03:45: White Blood Count 10.3, Red Blood Count 3.84L, Hemoglobin 9.5L, Hematocrit 30.8L , Mean Corpuscular Volume 80, Mean Corpuscular Hemoglobin 24.8L, Mean Corpuscular Hemoglobin Concent 31.0L, Red Cell Distribution Width 16.4H, Platelet Count 230, Mean Platelet Volume 7.0, Neutrophils (%) (Auto) 83.9H, Lymphocytes (%) (Auto) 8.7L, Monocytes (%) (Auto) 7.1, Eosinophils (%) (Auto) 0.0, Basophils (%) (Auto) 0.3, Prothrombin Time 11.8H, Prothromb Time International Ratio 1.1, Activated Partial Thromboplast Time 37H, Sodium Level 134L, Potassium Level 4.3, Chloride Level 90L, Carbon Dioxide Level 33H, Anion Gap 11, Blood Urea Nitrogen 68H, Creatinine 5.4H, Estimat Glomerular Filtration Rate 10.6, Glucose Level 177H, Uric Acid 4.5, Calcium Level 9.6, Phosphorus Level 4.5, Magnesium Level 2.4, Total Bilirubin 0.4, Direct Bilirubin < 0.1, Gamma Glutamyl Transpeptidase 56, Aspartate Amino Transf (AST/SGOT) 17, Alanine Aminotransferase (ALT/SGPT) 16, Alkaline Phosphatase 163H, Total Protein 7.2, Albumin 2.2L 12/31/18 13:22: Body Fluid Source Ascitis fluid, Body Fluid Volume 24, Body Fluid Appearance Cloudy, Body Fluid RBC 1008, Body Fluid Total Nucleated Cells 99, Body Fluid Polynuclear WBCs (%) 13, Body Fluid Mononuclear WBCs (%) 85, Body Fluid Mesothelial Cells (%) 2, Body Fluid Albumin [Pending] Height (Feet): 5 Height (Inches): 4.00 Weight (Pounds): 249 EENT: other - trach Cardiovascular: normal rate Respiratory/Chest: decreased breath sounds Abdomen: other - PEG Objective no other change Nakul Stevens MD December 31, 2018 15:10
--- NOTE | 2018-12-31 15:34 | Infectious Diseases Prog Note ---
Assessment/Plan Problems: (1) Foot ulcer Assessment & Plan: with MRSA grew out of it in the past, S/P vancomycin treatment with HD for two weeks, had vascular eval with revascularization to the right leg , S/P ulcer resection by continuous mining operator . deep ulcer culture grew MRSA and E.coli with diphtheroids , possible colonization , with no evidence of active infection as per discussion with podiatry , no need to be started on antibiotics for now , will continue to monitor clinically and make recommendations as necessary . bone scan ruled out osteomyelitis of the heel before, couldn't do an MRI since on the vent . continue local wound care as per continuous mining operator . (2) G-tube site cellulitis Assessment & Plan: improved, still with mild erythema and tube feeding draining , culture from the G tube site previously grew pseudomonas , S/P ciprofloxacin for 7 days , continue local care as per GI. keep area clean and dry . may need tube change if continue to leak the feeding tube materials (3) Thrush, oral Assessment & Plan: continue local nystatin as needed , S/P micafungin for three weeks empirically (4) HCV antibody positive Assessment & Plan: no evidence of active infection, with undetectable viral load , suspect due to previous infection , cleared, S/P liver transplant . (5) DM (diabetes mellitus) Assessment & Plan: recommend tight glycemic control to keep blood glucose between 100-140 (6) CHF (congestive heart failure) Assessment & Plan: on HD , renal is following, monitor daily weight (7) Severe tongue swelling Assessment & Plan: improving , s/p tracheostomy to protect his airway since respiratory status worsened . now improving, pulmonary is following (8) Pleural effusion Assessment & Plan: recurrent on the right, with lung collapse , S/P thoracentesis X 3 now with removal of 4.1 liters of clear fluids on 12/31/18 . will order culture and gram stain, with PH and Glucose level . PREVIOUS culture were negative with negative cytology. pulmonary is following Assessment/Plan will continue to monitor patient on daily basis and make recommendations as necessary since he is high risk for recurrent infection Subjective Constitutional: Reports: no symptoms HEENT: Reports: no symptoms Respiratory: Reports: no symptoms Breasts: Reports: no symptoms Cardiovascular: Reports: no symptoms Gastrointestinal/Abdominal: Reports: no symptoms Genitourinary: Reports: no symptoms Neurologic: Reports: no symptoms Psychiatric: Reports: no symptoms Skin: Reports: no symptoms Endocrine: Reports: no symptoms Hematologic: Reports: no symptoms Musculoskeletal: Reports: no symptoms Allergies: Coded Allergies: CEPHALEXIN (Unverified Allergy, Unknown, 02/24/14) SULFAMETHOXAZOLE (Unverified Allergy, Unknown, 02/24/14) TRIMETHOPRIM (Unverified Allergy, Unknown, 02/24/14) Subjective he was comfortable, lying in bed, denied any fever or chills, no significant secretions, no SOB . has heel pain at the surgery site with wound VAC in place , but no draining coming out Objective Vital Signs Last 24 Hour Vital Signs Date Time Temp Pulse Resp B/P (MAP) Pulse Ox O2 Delivery O2 Flow Rate FiO2 12/31/18 15:05 82 26 40 12/31/18 12:38 99 12/31/18 12:33 77 26 40 12/31/18 12:00 40 12/31/18 12:00 76 12/31/18 12:00 Mechanical Ventilator 12/31/18 12:00 97.5 8 20 102/54 (70) 100 12/31/18 11:13 84 26 40 12/31/18 08:53 79 26 40 12/31/18 08:02 77 153/73 12/31/18 08:00 40 12/31/18 08:00 78 12/31/18 08:00 Mechanical Ventilator 12/31/18 08:00 97.9 79 20 153/73 (99) 100 12/31/18 06:47 84 19 40 12/31/18 05:12 85 27 40 12/31/18 05:00 148/72 12/31/18 04:00 97.9 82 20 148/72 (97) 99 12/31/18 04:00 75 12/31/18 04:00 40 12/31/18 04:00 Mechanical Ventilator 12/31/18 02:58 78 19 40 12/31/18 01:25 81 22 40 12/31/18 00:00 97.2 81 19 119/66 (83) 100 12/31/18 00:00 Mechanical Ventilator 12/31/18 00:00 75 12/30/18 22:30 89 27 40 12/30/18 21:16 86 28 40 12/30/18 20:24 80 154/100 12/30/18 20:00 81 12/30/18 20:00 40 12/30/18 20:00 Mechanical Ventilator 12/30/18 20:00 97.0 80 26 154/0 (51) 100 12/30/18 19:19 81 27 40 12/30/18 18:00 146/96 12/30/18 16:40 85 20 40 12/30/18 16:00 98.0 72 26 146/96 (113) 100 12/30/18 16:00 Mechanical Ventilator 12/30/18 16:00 77 12/30/18 16:00 40 Height (Feet): 5 Height (Inches): 4.00 Weight (Pounds): 249 General Appearance: WD/WN, no acute distress HEENT: normocephalic, atraumatic, anicteric, mucous membranes moist, EOMI, pharynx normal, supple, no JVD Respiratory/Chest: chest wall non-tender, no respiratory distress, no accessory muscle use, decreased breath sounds, crackles/rales Cardiovascular: normal peripheral pulses, normal rate, regular rhythm, no gallop/murmur, no JVD Abdomen: normal bowel sounds, soft, non tender, no organomegaly, non distended , no mass, no scars Genitourinary: normal external genitalia Extremities: no cyanosis, no clubbing Skin: no rash, no lesions, ulcers 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: alert, oriented x 3, responsive Lymphatic: no neck adenopathy, no groin adenopathy Musculoskeletal: normal muscle bulk, no effusion Microbiology Date/Time Source Procedure Growth Status 12/28/18 19:30 Stool Clostridium difficile Toxin Assay - Final Complete Laboratory Tests Test 12/30/18 17:55 12/31/18 03:45 12/31/18 13:22 White Blood Count 10.7 K/UL (4.8-10.8) 10.3 K/UL (4.8-10.8) Red Blood Count 4.01 M/UL (4.70-6.10) L 3.84 M/UL (4.70-6.10) L Hemoglobin 10.2 G/DL (14.2-18.0) L 9.5 G/DL (14.2-18.0) L Hematocrit 31.0 % (42.0-52.0) L 30.8 % (42.0-52.0) L Mean Corpuscular Volume 77 FL (80-99) L 80 FL (80-99) Mean Corpuscular Hemoglobin 25.3 PG (27.0-31.0) L 24.8 PG (27.0-31.0) L Mean Corpuscular Hemoglobin Concent 32.8 G/DL (32.0-36.0) 31.0 G/DL (32.0-36.0) L Red Cell Distribution Width 15.5 % (11.6-14.8) H 16.4 % (11.6-14.8) H Platelet Count 243 K/UL (150-450) 230 K/UL (150-450) Mean Platelet Volume 6.2 FL (6.5-10.1) L 7.0 FL (6.5-10.1) Neutrophils (%) (Auto) 82.4 % (45.0-75.0) H 83.9 % (45.0-75.0) H Lymphocytes (%) (Auto) 8.4 % (20.0-45.0) L 8.7 % (20.0-45.0) L Monocytes (%) (Auto) 8.5 % (1.0-10.0) 7.1 % (1.0-10.0) Eosinophils (%) (Auto) 0.0 % (0.0-3.0) 0.0 % (0.0-3.0) Basophils (%) (Auto) 0.7 % (0.0-2.0) 0.3 % (0.0-2.0) Prothrombin Time 11.8 SEC (9.30-11.50) H Prothromb Time International Ratio 1.1 (0.9-1.1) Activated Partial Thromboplast Time 37 SEC (23-33) H Sodium Level 134 MMOL/L (136-145) L Potassium Level 4.3 MMOL/L (3.5-5.1) Chloride Level 90 MMOL/L (98-107) L Carbon Dioxide Level 33 MMOL/L (21-32) H Anion Gap 11 mmol/L (5-15) Blood Urea Nitrogen 68 mg/dL (7-18) H Creatinine 5.4 MG/DL (0.55-1.30) H Estimat Glomerular Filtration Rate 10.6 mL/min (>60) Glucose Level 177 MG/DL (74-106) H Uric Acid 4.5 MG/DL (2.6-7.2) Calcium Level 9.6 MG/DL (8.5-10.1) Phosphorus Level 4.5 MG/DL (2.5-4.9) Magnesium Level 2.4 MG/DL (1.8-2.4) Total Bilirubin 0.4 MG/DL (0.2-1.0) Direct Bilirubin < 0.1 MG/DL (0.0-0.3) Gamma Glutamyl Transpeptidase 56 U/L (5-85) Aspartate Amino Transf (AST/SGOT) 17 U/L (15-37) Alanine Aminotransferase (ALT/SGPT) 16 U/L (12-78) Alkaline Phosphatase 163 U/L (46-116) H Total Protein 7.2 G/DL (6.4-8.2) Albumin 2.2 G/DL (3.4-5.0) L Body Fluid Source Ascitis fluid Body Fluid Volume 24 mL Body Fluid Appearance Cloudy (Clear) Body Fluid RBC 1008 /CUMM Body Fluid Total Nucleated Cells 99 /CUMM Body Fluid Polynuclear WBCs (%) 13 % Body Fluid Mononuclear WBCs (%) 85 % Body Fluid Mesothelial Cells (%) 2 % Body Fluid Albumin Pending Current Medications Medications (Trade) Dose Ordered Sig/Aleks Route PRN Reason Start Time Stop Time Status Last Admin Dose Admin Acetaminophen (Tylenol) 650 mg Q6H PRN GT Mild Pain/Temp > 100.5 12/21/18 16:00 01/20/19 15:59 12/29/18 00:36 Acetaminophen/ Hydrocodone Bitart ([place] 5/325) 1 tab Q4H PRN GT Moderate Pain (Pain Scale 4-6) 12/29/18 11:15 01/05/19 11:14 12/30/18 18:15 Bacitracin (Bacitracin) 1 applic EVERY 12 HOURS TOPIC 12/11/18 21:00 01/06/19 17:59 12/31/18 08:02 Carvedilol (Coreg) 3.125 mg EVERY 12 HOURS GT 12/21/18 21:00 01/03/19 20:59 12/31/18 08:02 Clotrimazole (Lotrimin) 1 applic BID TOPIC 12/07/18 18:00 01/06/19 17:59 12/31/18 08:02 Collagenase (Santyl) 1 applic DAILY TOPIC 12/29/18 09:00 01/28/19 08:59 12/31/18 08:02 Dextrose (Dextrose 50%) 25 ml Q30M PRN IV Hypoglycemia 12/01/18 19:30 12/31/18 19:29 Dextrose (Dextrose 50%) 50 ml Q30M PRN IV Hypoglycemia 12/01/18 19:30 12/31/18 19:29 Escitalopram Oxalate (Lexapro) 10 mg DAILY GT 12/18/18 09:00 01/17/19 08:59 12/31/18 08:02 Hydralazine HCl (Apresoline) 10 mg Q6H PRN GT For High Blood Pressure 12/03/18 16:45 01/02/19 16:44 12/07/18 04:47 Insulin Aspart (NovoLOG) EVERY 6 HOURS SUBQ 12/02/18 00:00 12/31/18 20:59 12/30/18 12:28 Metoclopramide HCl (Reglan) 5 mg Q6H PRN IVP Nausea & Vomiting 12/30/18 17:30 01/29/19 17:29 12/31/18 04:49 Midodrine (Pro-Amatine) 5 mg BID ORAL 12/31/18 18:00 01/30/19 17:59 Mirtazapine (Remeron) 15 mg BEDTIME GT 12/21/18 21:00 01/20/19 20:59 12/30/18 20:24 Nitroglycerin (Nitro-Bid) 1 inch TID@0600,1200,1800 TOPIC 12/07/18 12:00 01/06/19 11:59 12/29/18 17:58 Tacrolimus (Prograf) 2 mg MoWeFr@0000,1200 ORAL 12/28/18 00:00 01/27/19 00:00 12/30/18 12:27 Tacrolimus (Prograf) 2 mg SuTuThSa@0900,2100 ORAL 12/26/18 21:00 01/25/19 20:59 12/31/18 08:09 Francois Landis M.D. December 31, 2018 15:34
--- NOTE | 2018-12-31 15:37 | General Progress Note ---
Assessment/Plan Status: unchanged Assessment/Plan: #Right heel diabetic foot ulcer without osteomyelitis #PAD #Right IJ DVT -seen by Podiatry and ID -s/p Vanco x 2 weeks during HD -s/p selective RLE angio with SFA/pop stenting -continue Eliquis -Vascular Surgery and Hematology following #Acute Resp hypercapnic failure s/p trach #Angioedema -continue trach care -Remains vent-dependant, breathing trials ongoing -Pulm following #End-stage renal disease, on dialysis #RUE edema #Anasarca, ascites, scrotal edema, pleural effusion due to hypoalbuminemia -HD with UF per Nephrology #Coronary artery disease -continue ASA, Coreg, atorva -cardiology following #Type 2 DM -ISS #Acute metabolic encephalopathy -continue supportive care -Neurology following #history of chronic HCV infection #history of liver transplant -continue Prograf -GI following #Abdominal distension and ascites -no nausea, vomiting or tenderness -continue supportive care -GI following -s/p paracentesis today #Dysphagia S/p PEG with PEG site cellulitis -s/p antibiotics per ID and GI -continue local wound care Subjective Constitutional: Denies: chills, fever Cardiovascular: Denies: chest pain Respiratory: Denies: cough Gastrointestinal/Abdominal: Denies: abdominal pain Allergies: Coded Allergies: CEPHALEXIN (Unverified Allergy, Unknown, 02/24/14) SULFAMETHOXAZOLE (Unverified Allergy, Unknown, 02/24/14) TRIMETHOPRIM (Unverified Allergy, Unknown, 02/24/14) Subjective Medicine follow up for acute resp failure, PAD, right heel infected DFU, ESRD, anasarca secondary to hypoalbuminemia, right IJ DVT. Had aan episode of green vomitus yesterday. H&H stable. Eliquis held. Underwent 4 liter paracentesis today Objective Last 24 Hour Vital Signs Date Time Temp Pulse Resp B/P (MAP) Pulse Ox O2 Delivery O2 Flow Rate FiO2 12/31/18 15:05 82 26 40 12/31/18 12:38 99 12/31/18 12:33 77 26 40 12/31/18 12:00 40 12/31/18 12:00 76 12/31/18 12:00 Mechanical Ventilator 12/31/18 12:00 97.5 8 20 102/54 (70) 100 12/31/18 11:13 84 26 40 12/31/18 08:53 79 26 40 12/31/18 08:02 77 153/73 12/31/18 08:00 40 12/31/18 08:00 78 12/31/18 08:00 Mechanical Ventilator 12/31/18 08:00 97.9 79 20 153/73 (99) 100 12/31/18 06:47 84 19 40 12/31/18 05:12 85 27 40 12/31/18 05:00 148/72 12/31/18 04:00 97.9 82 20 148/72 (97) 99 12/31/18 04:00 75 12/31/18 04:00 40 12/31/18 04:00 Mechanical Ventilator 12/31/18 02:58 78 19 40 12/31/18 01:25 81 22 40 12/31/18 00:00 97.2 81 19 119/66 (83) 100 12/31/18 00:00 Mechanical Ventilator 12/31/18 00:00 75 12/30/18 22:30 89 27 40 12/30/18 21:16 86 28 40 12/30/18 20:24 80 154/100 12/30/18 20:00 81 12/30/18 20:00 40 12/30/18 20:00 Mechanical Ventilator 12/30/18 20:00 97.0 80 26 154/0 (51) 100 12/30/18 19:19 81 27 40 12/30/18 18:00 146/96 12/30/18 16:40 85 20 40 12/30/18 16:00 98.0 72 26 146/96 (113) 100 12/30/18 16:00 Mechanical Ventilator 12/30/18 16:00 77 12/30/18 16:00 40 Intake and Output 12/30/18 12/31/18 19:00 07:00 Intake Total 435 ml 30 ml Output Total 3000 ml 2 ml Balance -2565 ml 28 ml Free Water 0 ml 30 ml Tube Feeding 405 ml Blood Product 30 ml Hemodialysis UF 3000 ml Other 2 ml # Bowel Movements 2 2 Laboratory Tests 12/30/18 17:55: White Blood Count 10.7, Red Blood Count 4.01L, Hemoglobin 10.2L, Hematocrit 31.0L, Mean Corpuscular Volume 77L, Mean Corpuscular Hemoglobin 25.3L, Mean Corpuscular Hemoglobin Concent 32.8, Red Cell Distribution Width 15.5H, Platelet Count 243, Mean Platelet Volume 6.2L, Neutrophils (%) (Auto) 82.4H, Lymphocytes (%) (Auto) 8.4L, Monocytes (%) (Auto) 8.5, Eosinophils (%) (Auto) 0.0, Basophils (%) (Auto) 0.7 12/31/18 03:45: White Blood Count 10.3, Red Blood Count 3.84L, Hemoglobin 9.5L, Hematocrit 30.8L , Mean Corpuscular Volume 80, Mean Corpuscular Hemoglobin 24.8L, Mean Corpuscular Hemoglobin Concent 31.0L, Red Cell Distribution Width 16.4H, Platelet Count 230, Mean Platelet Volume 7.0, Neutrophils (%) (Auto) 83.9H, Lymphocytes (%) (Auto) 8.7L, Monocytes (%) (Auto) 7.1, Eosinophils (%) (Auto) 0.0, Basophils (%) (Auto) 0.3, Prothrombin Time 11.8H, Prothromb Time International Ratio 1.1, Activated Partial Thromboplast Time 37H, Sodium Level 134L, Potassium Level 4.3, Chloride Level 90L, Carbon Dioxide Level 33H, Anion Gap 11, Blood Urea Nitrogen 68H, Creatinine 5.4H, Estimat Glomerular Filtration Rate 10.6, Glucose Level 177H, Uric Acid 4.5, Calcium Level 9.6, Phosphorus Level 4.5, Magnesium Level 2.4, Total Bilirubin 0.4, Direct Bilirubin < 0.1, Gamma Glutamyl Transpeptidase 56, Aspartate Amino Transf (AST/SGOT) 17, Alanine Aminotransferase (ALT/SGPT) 16, Alkaline Phosphatase 163H, Total Protein 7.2, Albumin 2.2L 12/31/18 13:22: Body Fluid Source Ascitis fluid, Body Fluid Volume 24, Body Fluid Appearance Cloudy, Body Fluid RBC 1008, Body Fluid Total Nucleated Cells 99, Body Fluid Polynuclear WBCs (%) 13, Body Fluid Mononuclear WBCs (%) 85, Body Fluid Mesothelial Cells (%) 2, Body Fluid Albumin [Pending] Height (Feet): 5 Height (Inches): 4.00 Weight (Pounds): 249 General Appearance: no apparent distress, alert Neck: normal alignment, supple Cardiovascular: normal rate, regular rhythm Respiratory/Chest: lungs clear, normal breath sounds Abdomen: non tender, soft Dennis Branham MD December 31, 2018 15:37
[2018-12-31 16:00] VITALS: BP 109/60
--- NOTE | 2018-12-31 16:38 | General Progress Note ---
Assessment/Plan Status: unchanged Assessment/Plan: Assessment and Recs: # Acute non-occlusive dvt, right extremity ultrasound (acute non-occlusive DVT in internal jugular) --> currently is on eliquis 2.5mg po bid, which recommend to continue (at this time on hold until further orders) --> do not recommend a SVC filter --> given prior bleeding risk, hold off on heparin gtt --> vasc surgeon is aware, seek recs # Anemia of chronic disease due to underlying chronic medical issues, multifactorial as well as kidney disease --> Anemia workup has been ordered, rule out gi bleed, seen by gi, also reviewed w/u --> HAS BEEN reordered since refusing --> No evidence of hemolysis is noted, peripheral smear has been reviewed. --> Epogen can be consider if hgb downtrends --> Medications have been reviewed --> evaluate with Gi team prn --> transfuse if hgb is < 7 (will trend CBC daily) ==> hgb trend 11.2-->10.9-->10.8-->10.7-->10.2-->9.7-->9.7-->8.5-->9 # Failure to thrive is likely related to poor overall status, poor functional status --> with multiple decub ulcerations that are noted, seen by id/surgery --> s/p trach as well --> cea is wnl # Coagulopathy likely secondary to decreased Vitk dependent cofactors (high INR , PT) --> monitor closely for any evidence of bleeding. Currently is on eliquis --> VIT K on prn basis sq can be administered ==> recently has improved inr 1.2-->1.1-->1.2 # Acute respiratory failure is now s/p trach to vent --> as per surgery recs # Ground glass opacities present on imaging of lung --> with pleural effusions, s/p drainage at this time --> no evidence for malignancy is noted --> as per pulm/id # Pleural effusion --> s/p thoracentesis, s/p paracentesis 12/31 --> no evidence of malignancy # Hyperkalemia --> kayxelate on prn basis per renal # Renal failure --> per renal recs, appreciated --> getting hd as per schedule # Altered level of consciousness ==> currently as per baseline # PAD off heparin gtt and now on eliquis --> per vasc and cards --> 12/22 s/p right leg angiogram with intervention --> on eliquis, continue # Gt tube cellulitis == topical abx as per id around site The timing of this note does not necessarily reflect the time of the patient was seen. Greatly appreciate consultation! Subjective HEENT: Denies: no symptoms, eye pain, blurred vision, tearing, double vision, ear pain, ear discharge, nose pain, nose congestion, throat pain, throat swelling, mouth pain, mouth swelling, other Cardiovascular: Denies: no symptoms, chest pain, edema, irregular heart rate, lightheadedness, palpitations, syncope, other Respiratory: Denies: no symptoms, cough, orthopnea, shortness of breath, SOB with excertion, SOB at rest, sputum, stridor, wheezing, other Gastrointestinal/Abdominal: Denies: no symptoms, abdomen distended, abdominal pain, black stools, tarry stools, blood in stool, constipated, diarrhea, difficulty swallowing, nausea, poor appetite, poor fluid intake, rectal bleeding , vomiting, other 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: Denies: no symptoms, anxiety, depressed, emotional problems, headache, numbness, paresthesia, pre-existing deficit, seizure, tingling, tremors, weakness, other Endocrine: Denies: no symptoms, excessive sweating, flushing, intolerance to cold, intolerance to heat, increased hunger, increased thirst, increased urine, unexplained weight gain, unexplained weight loss, other Hematologic/Lymphatic: Denies: no symptoms, anemia, easy bleeding, easy bruising, other Allergies: Coded Allergies: CEPHALEXIN (Unverified Allergy, Unknown, 02/24/14) SULFAMETHOXAZOLE (Unverified Allergy, Unknown, 02/24/14) TRIMETHOPRIM (Unverified Allergy, Unknown, 02/24/14) Subjective 11/30: comfortable, on abx, no complaints, on t-piece 12/01: to have hd done potentially tomorrow, is more alert/awake 12/02: no major bleeding, hgb remains approx 11, no changes 12/03: no events, breathing mildly better, hgb is improved 12/04: on vent/trach, no major changes, sr ekg 12/10: small amount of secretions, on trach/vent, no issues otherwise 12/11: no major issues, no complaints, labs reviewed, no sig changes 12/13: no events to report, no fevers or chills, awaiting placement 12/14: no changes, no major events to report, no fevers or chills 12/15: pending placement, getting gt feeds and hd as per renal 12/16: labs have been reviewed, cbc noted, no changes 12/17: no events, no fevers, no cp, hgb remains stable 12/18: restarted on heparin gtt, seen by pulm, cards 12/20: continues to be on heparin gtt, no bleeding reported, no f/c 12/21: hd for today, no fevers or chils, off hep gtt on eliquis 12/22: to get hd tomorrow, today is s/p right leg angiogram with intervention 12/23: hgb remins stable, no fevers or chills reported 12/24: no events, no bleeding, vitals reviewed, cbc stable 12/25: no events, no bleeding, on vent, hgb 9 12/27: no changes, no f/c, no night swearts, seen with other providers 12/28: right extremity ultrasound (acute non-occlusive DVT in internal jugular, on eliquis 12/29: no events, no night sweats, seen by gi, no bleeding 12/30: cbc has been reviewed, no f/c, no night sweats reported 12/31: no events, eliquis is on hold cbc has been reviewed, bp elevated Objective Last 24 Hour Vital Signs Date Time Temp Pulse Resp B/P (MAP) Pulse Ox O2 Delivery O2 Flow Rate FiO2 12/31/18 16:00 Mechanical Ventilator 12/31/18 16:00 40 12/31/18 15:05 82 26 40 12/31/18 12:38 99 12/31/18 12:33 77 26 40 12/31/18 12:00 40 12/31/18 12:00 76 12/31/18 12:00 Mechanical Ventilator 12/31/18 12:00 97.5 8 20 102/54 (70) 100 12/31/18 11:13 84 26 40 12/31/18 08:53 79 26 40 12/31/18 08:02 77 153/73 12/31/18 08:00 40 12/31/18 08:00 78 12/31/18 08:00 Mechanical Ventilator 12/31/18 08:00 97.9 79 20 153/73 (99) 100 12/31/18 06:47 84 19 40 12/31/18 05:12 85 27 40 12/31/18 05:00 148/72 12/31/18 04:00 97.9 82 20 148/72 (97) 99 12/31/18 04:00 75 12/31/18 04:00 40 12/31/18 04:00 Mechanical Ventilator 12/31/18 02:58 78 19 40 12/31/18 01:25 81 22 40 12/31/18 00:00 97.2 81 19 119/66 (83) 100 12/31/18 00:00 Mechanical Ventilator 12/31/18 00:00 75 12/30/18 22:30 89 27 40 12/30/18 21:16 86 28 40 12/30/18 20:24 80 154/100 12/30/18 20:00 81 12/30/18 20:00 40 12/30/18 20:00 Mechanical Ventilator 12/30/18 20:00 97.0 80 26 154/0 (51) 100 12/30/18 19:19 81 27 40 12/30/18 18:00 146/96 12/30/18 16:40 85 20 40 Intake and Output 12/30/18 12/31/18 19:00 07:00 Intake Total 435 ml 30 ml Output Total 3000 ml 2 ml Balance -2565 ml 28 ml Free Water 0 ml 30 ml Tube Feeding 405 ml Blood Product 30 ml Hemodialysis UF 3000 ml Other 2 ml # Bowel Movements 2 2 Laboratory Tests 12/30/18 17:55: White Blood Count 10.7, Red Blood Count 4.01L, Hemoglobin 10.2L, Hematocrit 31.0L, Mean Corpuscular Volume 77L, Mean Corpuscular Hemoglobin 25.3L, Mean Corpuscular Hemoglobin Concent 32.8, Red Cell Distribution Width 15.5H, Platelet Count 243, Mean Platelet Volume 6.2L, Neutrophils (%) (Auto) 82.4H, Lymphocytes (%) (Auto) 8.4L, Monocytes (%) (Auto) 8.5, Eosinophils (%) (Auto) 0.0, Basophils (%) (Auto) 0.7 12/31/18 03:45: White Blood Count 10.3, Red Blood Count 3.84L, Hemoglobin 9.5L, Hematocrit 30.8L , Mean Corpuscular Volume 80, Mean Corpuscular Hemoglobin 24.8L, Mean Corpuscular Hemoglobin Concent 31.0L, Red Cell Distribution Width 16.4H, Platelet Count 230, Mean Platelet Volume 7.0, Neutrophils (%) (Auto) 83.9H, Lymphocytes (%) (Auto) 8.7L, Monocytes (%) (Auto) 7.1, Eosinophils (%) (Auto) 0.0, Basophils (%) (Auto) 0.3, Prothrombin Time 11.8H, Prothromb Time International Ratio 1.1, Activated Partial Thromboplast Time 37H, Sodium Level 134L, Potassium Level 4.3, Chloride Level 90L, Carbon Dioxide Level 33H, Anion Gap 11, Blood Urea Nitrogen 68H, Creatinine 5.4H, Estimat Glomerular Filtration Rate 10.6, Glucose Level 177H, Uric Acid 4.5, Calcium Level 9.6, Phosphorus Level 4.5, Magnesium Level 2.4, Total Bilirubin 0.4, Direct Bilirubin < 0.1, Gamma Glutamyl Transpeptidase 56, Aspartate Amino Transf (AST/SGOT) 17, Alanine Aminotransferase (ALT/SGPT) 16, Alkaline Phosphatase 163H, Total Protein 7.2, Albumin 2.2L 12/31/18 13:22: Body Fluid Source Ascitis fluid, Body Fluid Volume 24, Body Fluid Appearance Cloudy, Body Fluid pH [Pending], Body Fluid RBC 1008, Body Fluid Total Nucleated Cells 99, Body Fluid Polynuclear WBCs (%) 13, Body Fluid Mononuclear WBCs (%) 85, Body Fluid Mesothelial Cells (%) 2, Body Fluid Glucose [Pending], Body Fluid Total Protein [Pending], Body Fluid Albumin [Pending] Height (Feet): 5 Height (Inches): 4.00 Weight (Pounds): 249 Objective PE General Appearance: mild distress, moderate distress Lines, tubes and drains: peripheral HEENT: EOMI, thrush, tonsils swollen ++trach Neck: normal inspection Respiratory/Chest: decreased breath sounds, accessory muscle use Cardiovascular/Chest: tachycardia Abdomen: soft, no organomegaly, no mass, ++ peg Extremities: other Skin Exam: warm/dry, rash Neurologic: alert, responsive Zacarias Khoury MD December 31, 2018 16:38
--- NOTE | 2018-12-31 17:03 | Pulmonology Progress Note ---
Assessment/Plan Assessment/Plan 1. Resp failure, hypercapneic 2. End-stage renal disease, on dialysis, status post multiple upper extremity vascular procedures. 3. Coronary artery bypass surgery. 4. Diabetes. 5. Dysphonia, tongue swelling, resolved; s/p trach PLAN: CT with large R pleural effusion and ascites 4 liter paracentesis done will order R thoracentesis hope it will help to wean disc w RN, RT Subjective Constitutional: Reports: no symptoms Allergies: Coded Allergies: CEPHALEXIN (Unverified Allergy, Unknown, 02/24/14) SULFAMETHOXAZOLE (Unverified Allergy, Unknown, 02/24/14) TRIMETHOPRIM (Unverified Allergy, Unknown, 02/24/14) Objective Last 24 Hour Vital Signs Date Time Temp Pulse Resp B/P (MAP) Pulse Ox O2 Delivery O2 Flow Rate FiO2 12/31/18 16:54 77 24 40 12/31/18 16:00 Mechanical Ventilator 12/31/18 16:00 40 12/31/18 15:05 82 26 40 12/31/18 12:38 99 12/31/18 12:33 77 26 40 12/31/18 12:00 40 12/31/18 12:00 76 12/31/18 12:00 Mechanical Ventilator 12/31/18 12:00 97.5 8 20 102/54 (70) 100 12/31/18 11:13 84 26 40 12/31/18 08:53 79 26 40 12/31/18 08:02 77 153/73 12/31/18 08:00 40 12/31/18 08:00 78 12/31/18 08:00 Mechanical Ventilator 12/31/18 08:00 97.9 79 20 153/73 (99) 100 12/31/18 06:47 84 19 40 12/31/18 05:12 85 27 40 12/31/18 05:00 148/72 12/31/18 04:00 97.9 82 20 148/72 (97) 99 12/31/18 04:00 75 12/31/18 04:00 40 12/31/18 04:00 Mechanical Ventilator 12/31/18 02:58 78 19 40 12/31/18 01:25 81 22 40 12/31/18 00:00 97.2 81 19 119/66 (83) 100 12/31/18 00:00 Mechanical Ventilator 12/31/18 00:00 75 12/30/18 22:30 89 27 40 12/30/18 21:16 86 28 40 12/30/18 20:24 80 154/100 12/30/18 20:00 81 12/30/18 20:00 40 12/30/18 20:00 Mechanical Ventilator 12/30/18 20:00 97.0 80 26 154/0 (51) 100 12/30/18 19:19 81 27 40 12/30/18 18:00 146/96 Intake and Output 12/30/18 12/31/18 19:00 07:00 Intake Total 435 ml 30 ml Output Total 3000 ml 2 ml Balance -2565 ml 28 ml Free Water 0 ml 30 ml Tube Feeding 405 ml Blood Product 30 ml Hemodialysis UF 3000 ml Other 2 ml # Bowel Movements 2 2 Objective trach on vent General Appearance: no acute distress Respiratory/Chest: lungs clear, decreased breath sounds Cardiovascular: normal rate Microbiology Date/Time Source Procedure Growth Status 12/28/18 19:30 Stool Clostridium difficile Toxin Assay - Final Complete Laboratory Tests 12/30/18 17:55: White Blood Count 10.7, Red Blood Count 4.01L, Hemoglobin 10.2L, Hematocrit 31.0L, Mean Corpuscular Volume 77L, Mean Corpuscular Hemoglobin 25.3L, Mean Corpuscular Hemoglobin Concent 32.8, Red Cell Distribution Width 15.5H, Platelet Count 243, Mean Platelet Volume 6.2L, Neutrophils (%) (Auto) 82.4H, Lymphocytes (%) (Auto) 8.4L, Monocytes (%) (Auto) 8.5, Eosinophils (%) (Auto) 0.0, Basophils (%) (Auto) 0.7 12/31/18 03:45: White Blood Count 10.3, Red Blood Count 3.84L, Hemoglobin 9.5L, Hematocrit 30.8L , Mean Corpuscular Volume 80, Mean Corpuscular Hemoglobin 24.8L, Mean Corpuscular Hemoglobin Concent 31.0L, Red Cell Distribution Width 16.4H, Platelet Count 230, Mean Platelet Volume 7.0, Neutrophils (%) (Auto) 83.9H, Lymphocytes (%) (Auto) 8.7L, Monocytes (%) (Auto) 7.1, Eosinophils (%) (Auto) 0.0, Basophils (%) (Auto) 0.3, Prothrombin Time 11.8H, Prothromb Time International Ratio 1.1, Activated Partial Thromboplast Time 37H, Sodium Level 134L, Potassium Level 4.3, Chloride Level 90L, Carbon Dioxide Level 33H, Anion Gap 11, Blood Urea Nitrogen 68H, Creatinine 5.4H, Estimat Glomerular Filtration Rate 10.6, Glucose Level 177H, Uric Acid 4.5, Calcium Level 9.6, Phosphorus Level 4.5, Magnesium Level 2.4, Total Bilirubin 0.4, Direct Bilirubin < 0.1, Gamma Glutamyl Transpeptidase 56, Aspartate Amino Transf (AST/SGOT) 17, Alanine Aminotransferase (ALT/SGPT) 16, Alkaline Phosphatase 163H, Total Protein 7.2, Albumin 2.2L 12/31/18 13:22: Body Fluid Source Ascitis fluid, Body Fluid Volume 24, Body Fluid Appearance Cloudy, Body Fluid pH 8.0, Body Fluid RBC 1008, Body Fluid Total Nucleated Cells 99, Body Fluid Polynuclear WBCs (%) 13, Body Fluid Mononuclear WBCs (%) 85 , Body Fluid Mesothelial Cells (%) 2, Body Fluid Glucose [Pending], Body Fluid Total Protein [Pending], Body Fluid Albumin [Pending] Current Medications Medications (Trade) Dose Ordered Sig/Aleks Route PRN Reason Start Time Stop Time Status Last Admin Dose Admin Acetaminophen (Tylenol) 650 mg Q6H PRN GT Mild Pain/Temp > 100.5 12/21/18 16:00 01/20/19 15:59 12/29/18 00:36 Acetaminophen/ Hydrocodone Bitart ([place] 5/325) 1 tab Q4H PRN GT Moderate Pain (Pain Scale 4-6) 12/29/18 11:15 01/05/19 11:14 12/30/18 18:15 Bacitracin (Bacitracin) 1 applic EVERY 12 HOURS TOPIC 12/11/18 21:00 01/06/19 17:59 12/31/18 08:02 Carvedilol (Coreg) 3.125 mg EVERY 12 HOURS GT 12/21/18 21:00 01/03/19 20:59 12/31/18 08:02 Clotrimazole (Lotrimin) 1 applic BID TOPIC 12/07/18 18:00 01/06/19 17:59 12/31/18 08:02 Collagenase (Santyl) 1 applic DAILY TOPIC 12/29/18 09:00 01/28/19 08:59 12/31/18 08:02 Dextrose (Dextrose 50%) 25 ml Q30M PRN IV Hypoglycemia 12/01/18 19:30 12/31/18 19:29 Dextrose (Dextrose 50%) 50 ml Q30M PRN IV Hypoglycemia 12/01/18 19:30 12/31/18 19:29 Escitalopram Oxalate (Lexapro) 10 mg DAILY GT 12/18/18 09:00 01/17/19 08:59 12/31/18 08:02 Hydralazine HCl (Apresoline) 10 mg Q6H PRN GT For High Blood Pressure 12/03/18 16:45 01/02/19 16:44 12/07/18 04:47 Insulin Aspart (NovoLOG) EVERY 6 HOURS SUBQ 12/02/18 00:00 12/31/18 20:59 12/30/18 12:28 Metoclopramide HCl (Reglan) 5 mg Q6H PRN IVP Nausea & Vomiting 12/30/18 17:30 01/29/19 17:29 12/31/18 04:49 Midodrine (Pro-Amatine) 5 mg BID ORAL 12/31/18 18:00 01/30/19 17:59 Mirtazapine (Remeron) 15 mg BEDTIME GT 12/21/18 21:00 01/20/19 20:59 12/30/18 20:24 Nitroglycerin (Nitro-Bid) 1 inch TID@0600,1200,1800 TOPIC 12/07/18 12:00 01/06/19 11:59 12/29/18 17:58 Tacrolimus (Prograf) 2 mg MoWeFr@0000,1200 ORAL 12/28/18 00:00 01/27/19 00:00 12/30/18 12:27 Tacrolimus (Prograf) 2 mg SuTuThSa@0900,2100 ORAL 12/26/18 21:00 01/25/19 20:59 12/31/18 08:09 Saroj Mendoza MD December 31, 2018 17:03
[2018-12-31 20:00] VITALS: BP 108/53
[2018-12-31] MEDS: HYDROcodone/Acetamin 5/325 tab GT PRN (23:40)
[2019-01-01] VITALS: BP 120/49
--- NOTE | 2019-01-01 01:45 | Progress Note ---
DATE: 12/31/2018 The patient's mental condition is unchanged. Son was at bedside today. We had a long conversation about the issue of capacity. The patient was frustrated. Discussed the case with the charge nurse in the presence of the patient's son. The patient has capacity to make decisions. MENTAL STATUS EXAMINATION: The patient is alert, oriented times self, place, and situation. Mood is anxious and depressed. Affect is constricted, congruent with mood. Thought process is concrete. Thought content, no suicidal or homicidal ideation. Cognition is intact. ASSESSMENT: The patient has capacity to make decisions. The patient has anxiety disorder and depression. PLAN: We will continue the current medications. We will continue to follow and readjust the medication. Jeffrey Lala M.D. DR: LAINE JOB#: [id number] CC:
[2019-01-01] MEDS: Acetaminophen 650mg/20.3ml GT PRN ×2 (03:50→23:38)
[2019-01-01 04:00] VITALS: BP 125/68
[2019-01-01 04:36] LABS: BASOPHILS % (AUTO) 0.5 % (0.0-2.0); HEMATOCRIT 28.7 % (42.0-52.0); HEMOGLOBIN 9.2 G/DL (14.2-18.0); MEAN CORPUSCULAR VOLUME 80 FL (80-99); MONOCYTES % (AUTO) 8.9 % (1.0-10.0); NEUTROPHILS % (AUTO) 81.6 % (45.0-75.0); PLATELET COUNT 240 K/UL (150-450); RED CELL DISTRIBUTION WIDTH 16.5 % (11.6-14.8); WHITE BLOOD COUNT 10.7 K/UL (4.8-10.8)
[2019-01-01] MEDS: NovoLOG Insulin Flexpen SUBQ SCH ×4 (05:02→23:52)
[2019-01-01] MEDS: Nitroglycerin 2% oint pkt TOPIC SCH ×3 (05:02→17:05)
[2019-01-01 05:09] LABS: ANION GAP 9 mmol/L (5-15); BLOOD UREA NITROGEN 82 mg/dL (7-18); CALCIUM 9.1 MG/DL (8.5-10.1); CARBON DIOXIDE 32 MMOL/L (21-32); CHLORIDE 91 MMOL/L (98-107); CREATININE 5.9 MG/DL (0.55-1.30); POTASSIUM 4.3 MMOL/L (3.5-5.1); SODIUM 132 MMOL/L (136-145)
[2019-01-01] MEDS: HYDROcodone/Acetamin 5/325 tab GT PRN ×4 (08:10→22:24)
[2019-01-01] MEDS: Bacitracin Oint UD TOPIC SCH ×2 (08:10→21:03)
[2019-01-01 08:56] VITALS: BP 125/54
--- NOTE | 2019-01-01 09:58 | GI Progress Note ---
Assessment/Plan Problems: (1) Foot ulcer ICD Codes: L97.509 - Non-pressure chronic ulcer of other part of unspecified foot with unspecified severity SNOMED: 12320738 Qualifiers: Qualified Codes: L97.511 - Non-pressure chronic ulcer of other part of right foot limited to breakdown of skin (2) DM (diabetes mellitus) ICD Codes: E11.9 - Type 2 diabetes mellitus without complications SNOMED: 24806670 (3) Transplant ICD Codes: Z94.9 - Transplanted organ and tissue status, unspecified SNOMED: 875912747 Status: unchanged Status Narrative Discussed with Dr. Escalera. Assessment/Plan History of liver transplant, currently on Prograf History of cholecystectomy status post tracheostomy and PEG Infected G-tube site, fu ID recs C. difficile negative would care cx >> GRAM NEGATIVE BACILLUS CT AP reviewed, Moderate to large right pleural effusion. Moderate Ascites. s/p Paracentesis yielding 4.1 yield, r/o SBP restart GTFs GT site care BID/prn topical abx around GT site per ID HD per nephro cont tacrolimus prn transfusions ppi zofran prn Titrate bowel regimen follow labs supportive care The patient was seen and examined at bedside and all new and available data was reviewed in the patients chart. I agree with the above findings, impression and plan. (Patient seen earlier today. Signature stamp does not reflect patient encounter time.). - Jorge Escalera MD Subjective Subjective Limited abdominal distention and discomfort improved Scrotal swelling and pain Objective Last 24 Hour Vital Signs Date Time Temp Pulse Resp B/P (MAP) Pulse Ox O2 Delivery O2 Flow Rate FiO2 01/01/19 09:29 75 20 40 01/01/19 08:56 97.0 71 22 125/54 (77) 95 01/01/19 08:56 Mechanical Ventilator 01/01/19 08:00 72 01/01/19 08:00 40 01/01/19 07:30 76 22 40 01/01/19 05:16 74 24 40 01/01/19 05:02 125/68 01/01/19 04:20 97.7 01/01/19 04:00 74 01/01/19 04:00 40 01/01/19 04:00 Mechanical Ventilator 01/01/19 04:00 97.7 74 22 125/68 (87) 100 01/01/19 03:18 75 25 40 01/01/19 01:11 79 26 40 01/01/19 00:10 96.8 01/01/19 00:00 96.8 73 22 120/49 (72) 100 01/01/19 00:00 40 01/01/19 00:00 Mechanical Ventilator 01/01/19 00:00 78 12/31/18 22:53 77 25 40 12/31/18 21:29 76 24 40 12/31/18 20:07 75 108/53 12/31/18 20:00 96.8 75 23 108/53 (71) 100 12/31/18 20:00 77 12/31/18 20:00 Mechanical Ventilator 12/31/18 20:00 40 12/31/18 19:51 75 24 40 12/31/18 16:54 77 24 40 12/31/18 16:00 Mechanical Ventilator 12/31/18 16:00 76 12/31/18 16:00 40 12/31/18 16:00 97.9 82 20 109/60 (76) 100 12/31/18 15:05 82 26 40 12/31/18 12:38 99 12/31/18 12:33 77 26 40 12/31/18 12:00 40 12/31/18 12:00 97.8 81 20 102/62 (75) 100 12/31/18 12:00 76 12/31/18 12:00 Mechanical Ventilator 12/31/18 11:13 84 26 40 Intake and Output 12/31/18 01/01/19 18:59 06:59 Intake Total 225 ml 720 ml Balance 225 ml 720 ml Free Water 180 ml Tube Feeding 225 ml 540 ml # Bowel Movements 1 Laboratory Tests Test 12/31/18 13:22 01/01/19 03:20 Body Fluid Source Ascitis fluid Body Fluid Volume 24 mL Body Fluid Appearance Cloudy (Clear) Body Fluid pH 8.0 Body Fluid RBC 1008 /CUMM Body Fluid Total Nucleated Cells 99 /CUMM Body Fluid Polynuclear WBCs (%) 13 % Body Fluid Mononuclear WBCs (%) 85 % Body Fluid Mesothelial Cells (%) 2 % Body Fluid Glucose Pending Body Fluid Total Protein Pending Body Fluid Albumin Pending White Blood Count 10.7 K/UL (4.8-10.8) Red Blood Count 3.60 M/UL (4.70-6.10) L Hemoglobin 9.2 G/DL (14.2-18.0) L Hematocrit 28.7 % (42.0-52.0) L Mean Corpuscular Volume 80 FL (80-99) Mean Corpuscular Hemoglobin 25.5 PG (27.0-31.0) L Mean Corpuscular Hemoglobin Concent 32.0 G/DL (32.0-36.0) Red Cell Distribution Width 16.5 % (11.6-14.8) H Platelet Count 240 K/UL (150-450) Mean Platelet Volume 7.0 FL (6.5-10.1) Neutrophils (%) (Auto) 81.6 % (45.0-75.0) H Lymphocytes (%) (Auto) 9.0 % (20.0-45.0) L Monocytes (%) (Auto) 8.9 % (1.0-10.0) Eosinophils (%) (Auto) 0.0 % (0.0-3.0) Basophils (%) (Auto) 0.5 % (0.0-2.0) Sodium Level 132 MMOL/L (136-145) L Potassium Level 4.3 MMOL/L (3.5-5.1) Chloride Level 91 MMOL/L (98-107) L Carbon Dioxide Level 32 MMOL/L (21-32) Anion Gap 9 mmol/L (5-15) Blood Urea Nitrogen 82 mg/dL (7-18) H Creatinine 5.9 MG/DL (0.55-1.30) H Estimat Glomerular Filtration Rate 9.6 mL/min (>60) Glucose Level 165 MG/DL (74-106) H Calcium Level 9.1 MG/DL (8.5-10.1) Height (Feet): 5 Height (Inches): 4.00 Weight (Pounds): 237 General Appearance: WD/WN, no apparent distress, alert Cardiovascular: normal rate Respiratory/Chest: normal breath sounds, no respiratory distress, other - tracheostomy Abdominal Exam: normal bowel sounds, non tender, soft, abdominal scars, GT site - c/d/i Extremities: non-tender Objective Scrotal swelling Right upper extremity swelling Kelvin Briggs NP January 01, 2019 09:58
--- NOTE | 2019-01-01 10:12 | Nephrology Progress Note ---
Assessment/Plan Problem List: (1) ESRD (end stage renal disease) on dialysis (2) Foot ulcer (3) CHF (congestive heart failure) Assessment: Ej Fx 20 % (4) Pacemaker (5) Acute respiratory failure Assessment: with Co2 retention (6) G-tube site cellulitis Assessment ESRD with high K and SOB on admit Foot ulcer, likely infected High Troponin likely NSTMI Pacer , Pleural effusion s/p CABGS s/p Liver transplant Plan dialysis 01/01 labs before HD noted BP low- improved on midodrine per consultants, GI GT site infection, topical antibiotic Neuro note appreciated placement in process vascular esteban regarding heel ulcer per Dr Mcgill pain med change to dilaudid GT Now has tracheostomy and PEG Adjust BP meds add nitro paste TID Antibiotics by ID per cardio and ID Podiatry and Vascular surgical fu ? DC planning? Subjective ROS Limited/Unobtainable: No Objective Objective Last 24 Hour Vital Signs Date Time Temp Pulse Resp B/P (MAP) Pulse Ox O2 Delivery O2 Flow Rate FiO2 01/01/19 09:29 75 20 40 01/01/19 08:56 97.0 71 22 125/54 (77) 95 01/01/19 08:56 Mechanical Ventilator 01/01/19 08:00 72 01/01/19 08:00 40 01/01/19 07:30 76 22 40 01/01/19 05:16 74 24 40 01/01/19 05:02 125/68 01/01/19 04:20 97.7 01/01/19 04:00 74 01/01/19 04:00 40 01/01/19 04:00 Mechanical Ventilator 01/01/19 04:00 97.7 74 22 125/68 (87) 100 01/01/19 03:18 75 25 40 01/01/19 01:11 79 26 40 01/01/19 00:10 96.8 01/01/19 00:00 96.8 73 22 120/49 (72) 100 01/01/19 00:00 40 01/01/19 00:00 Mechanical Ventilator 01/01/19 00:00 78 12/31/18 22:53 77 25 40 12/31/18 21:29 76 24 40 12/31/18 20:07 75 108/53 12/31/18 20:00 96.8 75 23 108/53 (71) 100 12/31/18 20:00 77 12/31/18 20:00 Mechanical Ventilator 12/31/18 20:00 40 12/31/18 19:51 75 24 40 12/31/18 16:54 77 24 40 12/31/18 16:00 Mechanical Ventilator 12/31/18 16:00 76 12/31/18 16:00 40 12/31/18 16:00 97.9 82 20 109/60 (76) 100 12/31/18 15:05 82 26 40 12/31/18 12:38 99 12/31/18 12:33 77 26 40 12/31/18 12:00 40 12/31/18 12:00 97.8 81 20 102/62 (75) 100 12/31/18 12:00 76 12/31/18 12:00 Mechanical Ventilator 12/31/18 11:13 84 26 40 Intake and Output 12/31/18 01/01/19 18:59 06:59 Intake Total 225 ml 720 ml Balance 225 ml 720 ml Free Water 180 ml Tube Feeding 225 ml 540 ml # Bowel Movements 1 Laboratory Tests 12/31/18 13:22: Body Fluid Source Ascitis fluid, Body Fluid Volume 24, Body Fluid Appearance Cloudy, Body Fluid pH 8.0, Body Fluid RBC 1008, Body Fluid Total Nucleated Cells 99, Body Fluid Polynuclear WBCs (%) 13, Body Fluid Mononuclear WBCs (%) 85 , Body Fluid Mesothelial Cells (%) 2, Body Fluid Glucose [Pending], Body Fluid Total Protein [Pending], Body Fluid Albumin [Pending] 01/01/19 03:20: White Blood Count 10.7, Red Blood Count 3.60L, Hemoglobin 9.2L, Hematocrit 28.7L , Mean Corpuscular Volume 80, Mean Corpuscular Hemoglobin 25.5L, Mean Corpuscular Hemoglobin Concent 32.0, Red Cell Distribution Width 16.5H, Platelet Count 240, Mean Platelet Volume 7.0, Neutrophils (%) (Auto) 81.6H, Lymphocytes (%) (Auto) 9.0L, Monocytes (%) (Auto) 8.9, Eosinophils (%) (Auto) 0.0, Basophils (%) (Auto) 0.5, Sodium Level 132L, Potassium Level 4.3, Chloride Level 91L, Carbon Dioxide Level 32, Anion Gap 9, Blood Urea Nitrogen 82H, Creatinine 5.9H, Estimat Glomerular Filtration Rate 9.6, Glucose Level 165H, Calcium Level 9.1 Height (Feet): 5 Height (Inches): 4.00 Weight (Pounds): 237 EENT: other - trach Cardiovascular: normal rate Respiratory/Chest: decreased breath sounds Abdomen: other - PEG Objective no other change Nakul Stevens MD January 01, 2019 10:12
[2019-01-01 12:00] VITALS: BP 147/93
--- NOTE | 2019-01-01 12:33 | Cardiac Electrophysiology PN ---
Assessment/Plan Assessment/Plan 1. Troponin leak due to renal failure. No CP or SOB 2. CAD. S/P CABG. On Coreg 3.125 bid, aspirin and Lipitor 3. NSVT in setting of old OR and CABG. EF 55%. Continue Coreg 4. CHF and right pleural effusion. On hemodialysis. Thoracentesis pending 5. S/P Right sided Med[employer]onic dual chamber pacemaker with Nl Fx. 6. End-stage renal disease, on hemodialysis per Dr. Stevens S/P Fistulogram by Dr. Salmeron 7. Multilevel AOD LE's with non-healing Right foot ulcer. Had abdominal angiogram per Dr Salmeron Antibiotic per Dr. Landis. FU by Dr. Huizar S/P peripheral intervention by Dr. Salmeron 12/22/18 Right foot on Wound-Vac 8. History of liver transplant on Prograf 9. Respiratory failure, S/P tracheostomy. 10. Pleural effusion. FU Dr. Mendoza 11. Dysphagia, S/P PEG 12. Low BP. BP now in 140-150s. On Midodrine 5 bid Subjective Subjective Comfortable in NAD. Awaiting placement. Midodrine decreased to 5 tid. Scheduled for thoracentesis after HD today Objective Last 24 Hour Vital Signs Date Time Temp Pulse Resp B/P (MAP) Pulse Ox O2 Delivery O2 Flow Rate FiO2 01/01/19 10:30 77 18 40 01/01/19 09:29 75 20 40 01/01/19 08:56 97.0 71 22 125/54 (77) 95 01/01/19 08:56 Mechanical Ventilator 01/01/19 08:00 72 01/01/19 08:00 40 01/01/19 07:30 76 22 40 01/01/19 05:16 74 24 40 01/01/19 05:02 125/68 01/01/19 04:20 97.7 01/01/19 04:00 74 01/01/19 04:00 40 01/01/19 04:00 Mechanical Ventilator 01/01/19 04:00 97.7 74 22 125/68 (87) 100 01/01/19 03:18 75 25 40 01/01/19 01:11 79 26 40 01/01/19 00:10 96.8 01/01/19 00:00 96.8 73 22 120/49 (72) 100 01/01/19 00:00 40 01/01/19 00:00 Mechanical Ventilator 01/01/19 00:00 78 12/31/18 22:53 77 25 40 12/31/18 21:29 76 24 40 12/31/18 20:07 75 108/53 12/31/18 20:00 96.8 75 23 108/53 (71) 100 12/31/18 20:00 77 12/31/18 20:00 Mechanical Ventilator 12/31/18 20:00 40 12/31/18 19:51 75 24 40 12/31/18 16:54 77 24 40 12/31/18 16:00 Mechanical Ventilator 12/31/18 16:00 76 12/31/18 16:00 40 12/31/18 16:00 97.9 82 20 109/60 (76) 100 12/31/18 15:05 82 26 40 12/31/18 12:38 99 12/31/18 12:33 77 26 40 Intake and Output 12/31/18 01/01/19 18:59 06:59 Intake Total 225 ml 720 ml Balance 225 ml 720 ml Free Water 180 ml Tube Feeding 225 ml 540 ml # Bowel Movements 1 Laboratory Tests Test 12/31/18 13:22 01/01/19 03:20 Body Fluid Source Ascitis fluid Body Fluid Volume 24 mL Body Fluid Appearance Cloudy (Clear) Body Fluid pH 8.0 Body Fluid RBC 1008 /CUMM Body Fluid Total Nucleated Cells 99 /CUMM Body Fluid Polynuclear WBCs (%) 13 % Body Fluid Mononuclear WBCs (%) 85 % Body Fluid Mesothelial Cells (%) 2 % Body Fluid Glucose 177 mg/dL (.) Body Fluid Total Protein 3.3 g/dL (.) Body Fluid Albumin 1.8 g/dL (.) White Blood Count 10.7 K/UL (4.8-10.8) Red Blood Count 3.60 M/UL (4.70-6.10) L Hemoglobin 9.2 G/DL (14.2-18.0) L Hematocrit 28.7 % (42.0-52.0) L Mean Corpuscular Volume 80 FL (80-99) Mean Corpuscular Hemoglobin 25.5 PG (27.0-31.0) L Mean Corpuscular Hemoglobin Concent 32.0 G/DL (32.0-36.0) Red Cell Distribution Width 16.5 % (11.6-14.8) H Platelet Count 240 K/UL (150-450) Mean Platelet Volume 7.0 FL (6.5-10.1) Neutrophils (%) (Auto) 81.6 % (45.0-75.0) H Lymphocytes (%) (Auto) 9.0 % (20.0-45.0) L Monocytes (%) (Auto) 8.9 % (1.0-10.0) Eosinophils (%) (Auto) 0.0 % (0.0-3.0) Basophils (%) (Auto) 0.5 % (0.0-2.0) Sodium Level 132 MMOL/L (136-145) L Potassium Level 4.3 MMOL/L (3.5-5.1) Chloride Level 91 MMOL/L (98-107) L Carbon Dioxide Level 32 MMOL/L (21-32) Anion Gap 9 mmol/L (5-15) Blood Urea Nitrogen 82 mg/dL (7-18) H Creatinine 5.9 MG/DL (0.55-1.30) H Estimat Glomerular Filtration Rate 9.6 mL/min (>60) Glucose Level 165 MG/DL (74-106) H Calcium Level 9.1 MG/DL (8.5-10.1) Microbiology Date/Time Source Procedure Growth Status 12/31/18 13:22 Ascities Fluid Gram Stain Pending Resulted 12/31/18 13:22 Ascities Fluid Body Fluid Culture - Preliminary NO GROWTH Resulted Objective HEAD AND NECK: No JVD. Tracheostomy intact LUNGS: Clear CARDIOVASCULAR: Irregular S1 and S2 with no gallop. Sternotomy is intact Pacemaker in the right subclavian ABDOMEN: Soft.PEG in place EXTREMITIES: 1+ pitting edema. Right heel in dressing and connected to WoundVac Shivam Sharpe MD January 01, 2019 12:33
--- NOTE | 2019-01-01 13:21 | General Progress Note ---
Assessment/Plan Status: unchanged Assessment/Plan: #Right heel diabetic foot ulcer without osteomyelitis #PAD #Right IJ DVT -seen by Podiatry and ID -s/p Vanco x 2 weeks during HD -s/p selective RLE angio with SFA/pop stenting -resume Eliquis -Vascular Surgery and Hematology following #Acute Resp hypercapnic failure s/p trach #Angioedema #Large right pleural effusion -continue trach care -Remains vent-dependant, breathing trials ongoing -Right thora today per Pulm -Pulm following #End-stage renal disease, on dialysis #RUE edema #Anasarca, ascites, scrotal edema, pleural effusion due to hypoalbuminemia -HD with UF per Nephrology #Coronary artery disease -continue ASA, Coreg, atorva -cardiology following #Type 2 DM -ISS #Acute metabolic encephalopathy -continue supportive care -Neurology following #history of chronic HCV infection #history of liver transplant -continue Prograf -GI following #Abdominal distension and ascites -no nausea, vomiting or tenderness -continue supportive care -GI following -s/p paracentesis today #Dysphagia S/p PEG with PEG site cellulitis -s/p antibiotics per ID and GI -continue local wound care Subjective Date patient seen: January 01, 2019 Time patient seen: 13:00 ROS Limited/Unobtainable: Yes Cardiovascular: Denies: chest pain Respiratory: Denies: cough Gastrointestinal/Abdominal: Denies: abdominal pain Genitourinary: Denies: burning Allergies: Coded Allergies: CEPHALEXIN (Unverified Allergy, Unknown, 02/24/14) SULFAMETHOXAZOLE (Unverified Allergy, Unknown, 02/24/14) TRIMETHOPRIM (Unverified Allergy, Unknown, 02/24/14) Subjective Medicine follow up for acute resp failure, PAD, right heel infected DFU, ESRD, anasarca secondary to hypoalbuminemia, right IJ DVT. S/p 4 liter paracentesis. Going for right thoracentesis. Objective Last 24 Hour Vital Signs Date Time Temp Pulse Resp B/P (MAP) Pulse Ox O2 Delivery O2 Flow Rate FiO2 01/01/19 12:00 Mechanical Ventilator 01/01/19 12:00 97.5 69 22 147/93 (111) 98 01/01/19 12:00 40 01/01/19 10:30 77 18 40 01/01/19 09:29 75 20 40 01/01/19 08:56 97.0 71 22 125/54 (77) 95 01/01/19 08:56 Mechanical Ventilator 01/01/19 08:00 72 01/01/19 08:00 40 01/01/19 07:30 76 22 40 01/01/19 05:16 74 24 40 01/01/19 05:02 125/68 01/01/19 04:20 97.7 01/01/19 04:00 74 01/01/19 04:00 40 01/01/19 04:00 Mechanical Ventilator 01/01/19 04:00 97.7 74 22 125/68 (87) 100 01/01/19 03:18 75 25 40 01/01/19 01:11 79 26 40 01/01/19 00:10 96.8 01/01/19 00:00 96.8 73 22 120/49 (72) 100 01/01/19 00:00 40 01/01/19 00:00 Mechanical Ventilator 01/01/19 00:00 78 12/31/18 22:53 77 25 40 12/31/18 21:29 76 24 40 12/31/18 20:07 75 108/53 12/31/18 20:00 96.8 75 23 108/53 (71) 100 12/31/18 20:00 77 12/31/18 20:00 Mechanical Ventilator 12/31/18 20:00 40 12/31/18 19:51 75 24 40 12/31/18 16:54 77 24 40 12/31/18 16:00 Mechanical Ventilator 12/31/18 16:00 76 12/31/18 16:00 40 12/31/18 16:00 97.9 82 20 109/60 (76) 100 12/31/18 15:05 82 26 40 Intake and Output 12/31/18 01/01/19 18:59 06:59 Intake Total 225 ml 720 ml Balance 225 ml 720 ml Free Water 180 ml Tube Feeding 225 ml 540 ml # Bowel Movements 1 Laboratory Tests 12/31/18 13:22: Body Fluid Source Ascitis fluid, Body Fluid Volume 24, Body Fluid Appearance Cloudy, Body Fluid pH 8.0, Body Fluid RBC 1008, Body Fluid Total Nucleated Cells 99, Body Fluid Polynuclear WBCs (%) 13, Body Fluid Mononuclear WBCs (%) 85 , Body Fluid Mesothelial Cells (%) 2, Body Fluid Glucose 177, Body Fluid Total Protein 3.3, Body Fluid Albumin 1.8 01/01/19 03:20: White Blood Count 10.7, Red Blood Count 3.60L, Hemoglobin 9.2L, Hematocrit 28.7L , Mean Corpuscular Volume 80, Mean Corpuscular Hemoglobin 25.5L, Mean Corpuscular Hemoglobin Concent 32.0, Red Cell Distribution Width 16.5H, Platelet Count 240, Mean Platelet Volume 7.0, Neutrophils (%) (Auto) 81.6H, Lymphocytes (%) (Auto) 9.0L, Monocytes (%) (Auto) 8.9, Eosinophils (%) (Auto) 0.0, Basophils (%) (Auto) 0.5, Sodium Level 132L, Potassium Level 4.3, Chloride Level 91L, Carbon Dioxide Level 32, Anion Gap 9, Blood Urea Nitrogen 82H, Creatinine 5.9H, Estimat Glomerular Filtration Rate 9.6, Glucose Level 165H, Calcium Level 9.1 Height (Feet): 5 Height (Inches): 4.00 Weight (Pounds): 237 General Appearance: alert Neck: normal alignment, supple Cardiovascular: normal rate, regular rhythm Respiratory/Chest: lungs clear, normal breath sounds Abdomen: non tender, soft Dennis Branham MD January 01, 2019 13:21
--- NOTE | 2019-01-01 14:12 | General Progress Note ---
Assessment/Plan Status: unchanged Assessment/Plan: Assessment and Recs: # Acute non-occlusive dvt, right extremity ultrasound (acute non-occlusive DVT in internal jugular) --> currently is on eliquis 2.5mg po bid, which recommend to continue (at this time on hold until further orders) --> do not recommend a SVC filter --> given prior bleeding risk, hold off on heparin gtt --> vasc surgeon is aware, seek recs # Anemia of chronic disease due to underlying chronic medical issues --> ferritin is 633, tibc is low --> No evidence of hemolysis is noted, peripheral smear has been reviewed. --> Epogen can be consider if hgb downtrends --> Medications have been reviewed --> evaluate with Gi team prn --> transfuse if hgb is < 7 (will trend CBC daily) --> hgb trend 11.2-->10.9-->10.8-->10.7-->10.2-->9.7-->9.7-->8.5-->9-->9.2 # Failure to thrive is likely related to poor overall status, poor functional status --> with multiple decub ulcerations that are noted, seen by id/surgery --> s/p trach as well --> cea is wnl # Coagulopathy likely secondary to decreased Vitk dependent cofactors (high INR , PT) --> monitor closely for any evidence of bleeding. Currently is on eliquis --> VIT K on prn basis sq can be administered ==> recently has improved inr 1.2-->1.1-->1.2 # Acute respiratory failure is now s/p trach to vent --> as per surgery recs # Ground glass opacities present on imaging of lung --> with pleural effusions, s/p drainage at this time --> no evidence for malignancy is noted --> as per pulm/id # Pleural effusion --> s/p thoracentesis, s/p paracentesis 12/31 --> no evidence of malignancy # Hyperkalemia --> kayxelate on prn basis per renal # Renal failure --> per renal recs, appreciated --> getting hd as per schedule # Altered level of consciousness ==> currently as per baseline # PAD off heparin gtt and now on eliquis --> per vasc and cards --> 12/22 s/p right leg angiogram with intervention --> on eliquis, continue # Gt tube cellulitis, on topical abx as per id around site The timing of this note does not necessarily reflect the time of the patient was seen. Greatly appreciate consultation! Subjective Constitutional: Denies: no symptoms, chills, diaphoresis, fever, malaise, weakness, other Respiratory: Denies: no symptoms, cough, orthopnea, shortness of breath, SOB with excertion, SOB at rest, sputum, stridor, wheezing, other Gastrointestinal/Abdominal: Denies: no symptoms, abdomen distended, abdominal pain, black stools, tarry stools, blood in stool, constipated, diarrhea, difficulty swallowing, nausea, poor appetite, poor fluid intake, rectal bleeding , vomiting, other Genitourinary: Denies: no symptoms, burning, discharge, frequency, flank pain, hematuria, incontinence, pain, urgency, other 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: Denies: no symptoms, anxiety, depressed, emotional problems, headache, numbness, paresthesia, pre-existing deficit, seizure, tingling, tremors, weakness, other Endocrine: Denies: no symptoms, excessive sweating, flushing, intolerance to cold, intolerance to heat, increased hunger, increased thirst, increased urine, unexplained weight gain, unexplained weight loss, other Hematologic/Lymphatic: Denies: no symptoms, anemia, easy bleeding, easy bruising, other Allergies: Coded Allergies: CEPHALEXIN (Unverified Allergy, Unknown, 02/24/14) SULFAMETHOXAZOLE (Unverified Allergy, Unknown, 02/24/14) TRIMETHOPRIM (Unverified Allergy, Unknown, 02/24/14) Subjective 11/30: comfortable, on abx, no complaints, on t-piece 12/01: to have hd done potentially tomorrow, is more alert/awake 12/02: no major bleeding, hgb remains approx 11, no changes 12/03: no events, breathing mildly better, hgb is improved 12/04: on vent/trach, no major changes, sr ekg 12/10: small amount of secretions, on trach/vent, no issues otherwise 12/11: no major issues, no complaints, labs reviewed, no sig changes 12/13: no events to report, no fevers or chills, awaiting placement 12/14: no changes, no major events to report, no fevers or chills 12/15: pending placement, getting gt feeds and hd as per renal 12/16: labs have been reviewed, cbc noted, no changes 12/17: no events, no fevers, no cp, hgb remains stable 12/18: restarted on heparin gtt, seen by pulcamelia, cards 12/20: continues to be on heparin gtt, no bleeding reported, no f/c 12/21: hd for today, no fevers or chils, off hep gtt on eliquis 12/22: to get hd tomorrow, today is s/p right leg angiogram with intervention 12/23: hgb remins stable, no fevers or chills reported 12/24: no events, no bleeding, vitals reviewed, cbc stable 12/25: no events, no bleeding, on vent, hgb 9 12/27: no changes, no f/c, no night swearts, seen with other providers 12/28: right extremity ultrasound (acute non-occlusive DVT in internal jugular, on eliquis 12/29: no events, no night sweats, seen by gi, no bleeding 12/30: cbc has been reviewed, no f/c, no night sweats reported 12/31: no events, eliquis is on hold cbc has been reviewed, bp elevated 01/01: no fevers or chills, cbc reviewed, hgb 9.3, getting HD Objective Last 24 Hour Vital Signs Date Time Temp Pulse Resp B/P (MAP) Pulse Ox O2 Delivery O2 Flow Rate FiO2 01/01/19 13:15 76 18 40 01/01/19 12:00 Mechanical Ventilator 01/01/19 12:00 97.5 69 22 147/93 (111) 98 01/01/19 12:00 40 01/01/19 10:30 77 18 40 01/01/19 09:29 75 20 40 01/01/19 08:56 97.0 71 22 125/54 (77) 95 01/01/19 08:56 Mechanical Ventilator 01/01/19 08:00 72 01/01/19 08:00 40 01/01/19 07:30 76 22 40 01/01/19 05:16 74 24 40 01/01/19 05:02 125/68 01/01/19 04:20 97.7 01/01/19 04:00 74 01/01/19 04:00 40 01/01/19 04:00 Mechanical Ventilator 01/01/19 04:00 97.7 74 22 125/68 (87) 100 01/01/19 03:18 75 25 40 01/01/19 01:11 79 26 40 01/01/19 00:10 96.8 01/01/19 00:00 96.8 73 22 120/49 (72) 100 01/01/19 00:00 40 01/01/19 00:00 Mechanical Ventilator 01/01/19 00:00 78 12/31/18 22:53 77 25 40 12/31/18 21:29 76 24 40 12/31/18 20:07 75 108/53 12/31/18 20:00 96.8 75 23 108/53 (71) 100 12/31/18 20:00 77 12/31/18 20:00 Mechanical Ventilator 12/31/18 20:00 40 12/31/18 19:51 75 24 40 12/31/18 16:54 77 24 40 12/31/18 16:00 Mechanical Ventilator 12/31/18 16:00 76 12/31/18 16:00 40 12/31/18 16:00 97.9 82 20 109/60 (76) 100 12/31/18 15:05 82 26 40 Intake and Output 12/31/18 01/01/19 18:59 06:59 Intake Total 225 ml 720 ml Balance 225 ml 720 ml Free Water 180 ml Tube Feeding 225 ml 540 ml # Bowel Movements 1 Laboratory Tests 01/01/19 03:20: White Blood Count 10.7, Red Blood Count 3.60L, Hemoglobin 9.2L, Hematocrit 28.7L , Mean Corpuscular Volume 80, Mean Corpuscular Hemoglobin 25.5L, Mean Corpuscular Hemoglobin Concent 32.0, Red Cell Distribution Width 16.5H, Platelet Count 240, Mean Platelet Volume 7.0, Neutrophils (%) (Auto) 81.6H, Lymphocytes (%) (Auto) 9.0L, Monocytes (%) (Auto) 8.9, Eosinophils (%) (Auto) 0.0, Basophils (%) (Auto) 0.5, Sodium Level 132L, Potassium Level 4.3, Chloride Level 91L, Carbon Dioxide Level 32, Anion Gap 9, Blood Urea Nitrogen 82H, Creatinine 5.9H, Estimat Glomerular Filtration Rate 9.6, Glucose Level 165H, Calcium Level 9.1 Height (Feet): 5 Height (Inches): 4.00 Weight (Pounds): 237 Objective PE General Appearance: mild distress, moderate distress Lines, tubes and drains: peripheral HEENT: EOMI, thrush, tonsils swollen ++trach Neck: normal inspection Respiratory/Chest: decreased breath sounds, accessory muscle use Cardiovascular/Chest: tachycardia Abdomen: soft, no organomegaly, no mass, ++ peg Extremities: other Skin Exam: warm/dry, rash Neurologic: alert, responsive Zacarias Khoury MD January 01, 2019 14:12
--- NOTE | 2019-01-01 15:20 | Diagnostic Imaging Report ---
Indications: Pleural effusion Technique: Ultrasound used to localize optimal puncture site. Sterile prepping and draping of the lower chest performed. Local anesthesia with 1% lidocaine. Dermatotomy made. Puncture of the pleural space using thoracentesis needle. Stylet removed. Catheter placed to vacuum bottle suction. Cloudy yellow to edi fluid was aspirated. Patient tolerated procedure well, without immediate complication. Diagnostic thoracentesis also performed. Findings: Followup sonography demonstrates complete resolution of pleural fluid. Followup chest x-ray is pending. Impression: Successful ultrasound-guided right thoracentesis, yielding 2.3 liters of fluid
--- NOTE | 2019-01-01 15:38 | Diagnostic Imaging Report ---
Indication: Status post thoracentesis Comparison: 11/24/2018 A single view chest radiograph was obtained. Findings: There is a moderate right pneumothorax demonstrated after removal of a large amount of fluid, approximately 2.3 L. There is good visualization of the visceral pleura, which appears moderately dense and thickened especially at the right lung base. 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 There is probably vascular congestion demonstrated with cardiomegaly. Tracheostomy and sternotomy right-sided pacemaker again noted. IMPRESSION: Moderate pneumothorax due to noncompliant trapped right lung. Pulmonary edema
[2019-01-01 16:00] VITALS: BP 107/60
--- NOTE | 2019-01-01 19:21 | Infectious Diseases Prog Note ---
Assessment/Plan Problems: (1) Foot ulcer Assessment & Plan: with MRSA grew out of it in the past, S/P vancomycin treatment with HD for two weeks, had vascular eval with revascularization to the right leg , S/P ulcer resection by quotation clerk . deep ulcer culture grew MRSA and E.coli with diphtheroids , possible colonization , with no evidence of active infection as per discussion with podiatry , no need to be started on antibiotics for now , will continue to monitor clinically and make recommendations as necessary . bone scan ruled out osteomyelitis of the heel before, couldn't do an MRI since on the vent . continue local wound care as per quotation clerk . (2) G-tube site cellulitis Assessment & Plan: improved, still with mild erythema and tube feeding draining , culture from the G tube site previously grew pseudomonas , S/P ciprofloxacin for 7 days , continue local care as per GI. keep area clean and dry . may need tube change if continue to leak the feeding tube materials (3) Thrush, oral Assessment & Plan: continue local nystatin as needed , S/P micafungin for three weeks empirically (4) HCV antibody positive Assessment & Plan: no evidence of active infection, with undetectable viral load , suspect due to previous infection , cleared, S/P liver transplant . (5) DM (diabetes mellitus) Assessment & Plan: recommend tight glycemic control to keep blood glucose between 100-140 (6) CHF (congestive heart failure) Assessment & Plan: on HD , renal is following, monitor daily weight (7) Severe tongue swelling Assessment & Plan: improving , s/p tracheostomy to protect his airway since respiratory status worsened . now improving, pulmonary is following (8) Pleural effusion Assessment & Plan: recurrent on the right, with lung collapse , S/P thoracentesis X 3 now with removal of 2.3 liters of clear fluids on 12/31/18 . await fluids culture and gram stain, with PH and Glucose level . PREVIOUS culture were negative with negative cytology. pulmonary is following (9) Ascites Assessment & Plan: S/P paracentesis with removal of 4.1 liters of fluids, culture so far is negative Assessment/Plan will continue to monitor patient on daily basis and make recommendations as necessary since he is high risk for recurrent infection Subjective Constitutional: Reports: no symptoms HEENT: Reports: no symptoms Respiratory: Reports: no symptoms Breasts: Reports: no symptoms Cardiovascular: Reports: no symptoms Gastrointestinal/Abdominal: Reports: no symptoms Genitourinary: Reports: no symptoms Neurologic: Reports: no symptoms Psychiatric: Reports: no symptoms Skin: Reports: ulcer Endocrine: Reports: no symptoms Hematologic: Reports: no symptoms Musculoskeletal: Reports: pain Allergies: Coded Allergies: CEPHALEXIN (Unverified Allergy, Unknown, 02/24/14) SULFAMETHOXAZOLE (Unverified Allergy, Unknown, 02/24/14) TRIMETHOPRIM (Unverified Allergy, Unknown, 02/24/14) Subjective he was comfortable, lying in bed, denied any fever or chills, no significant secretions, no SOB . has heel pain at the surgery site with wound VAC in place , but no draining coming out Objective Vital Signs Last 24 Hour Vital Signs Date Time Temp Pulse Resp B/P (MAP) Pulse Ox O2 Delivery O2 Flow Rate FiO2 01/01/19 19:07 68 24 40 40 01/01/19 17:10 74 24 40 01/01/19 16:00 78 01/01/19 16:00 Mechanical Ventilator 01/01/19 16:00 97.9 70 22 107/60 (76) 98 01/01/19 16:00 40 01/01/19 15:16 78 20 40 01/01/19 13:15 76 18 40 01/01/19 12:00 Mechanical Ventilator 01/01/19 12:00 97.5 69 22 147/93 (111) 98 01/01/19 12:00 40 01/01/19 12:00 67 01/01/19 10:30 77 18 40 01/01/19 09:29 75 20 40 01/01/19 08:56 97.0 71 22 125/54 (77) 95 01/01/19 08:56 Mechanical Ventilator 01/01/19 08:00 72 01/01/19 08:00 40 01/01/19 07:30 76 22 40 01/01/19 05:16 74 24 40 01/01/19 05:02 125/68 01/01/19 04:20 97.7 01/01/19 04:00 74 01/01/19 04:00 40 01/01/19 04:00 Mechanical Ventilator 01/01/19 04:00 97.7 74 22 125/68 (87) 100 01/01/19 03:18 75 25 40 01/01/19 01:11 79 26 40 01/01/19 00:10 96.8 01/01/19 00:00 96.8 73 22 120/49 (72) 100 01/01/19 00:00 40 01/01/19 00:00 Mechanical Ventilator 01/01/19 00:00 78 12/31/18 22:53 77 25 40 12/31/18 21:29 76 24 40 12/31/18 20:07 75 108/53 12/31/18 20:00 96.8 75 23 108/53 (71) 100 12/31/18 20:00 77 12/31/18 20:00 Mechanical Ventilator 12/31/18 20:00 40 12/31/18 19:51 75 24 40 Height (Feet): 5 Height (Inches): 4.00 Weight (Pounds): 237 General Appearance: WD/WN, no acute distress HEENT: normocephalic, atraumatic, anicteric, mucous membranes moist, PERRL, EOMI, pharynx normal, supple, no JVD Respiratory/Chest: chest wall non-tender, no respiratory distress, no accessory muscle use, decreased breath sounds, crackles/rales Cardiovascular: normal peripheral pulses, normal rate, regular rhythm, no gallop/murmur, no JVD Abdomen: normal bowel sounds, soft, non tender, no organomegaly, non distended , no mass, no scars Genitourinary: normal external genitalia Extremities: no cyanosis, no clubbing Skin: no rash, no lesions, no ulcers 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: casino runner 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 normal, alert, responsive Lymphatic: no neck adenopathy, no groin adenopathy Musculoskeletal: normal muscle bulk, no effusion Microbiology Date/Time Source Procedure Growth Status 12/31/18 13:22 Ascities Fluid Gram Stain Pending Resulted 12/31/18 13:22 Ascities Fluid Body Fluid Culture - Preliminary NO GROWTH Resulted Laboratory Tests Test 01/01/19 03:20 White Blood Count 10.7 K/UL (4.8-10.8) Red Blood Count 3.60 M/UL (4.70-6.10) L Hemoglobin 9.2 G/DL (14.2-18.0) L Hematocrit 28.7 % (42.0-52.0) L Mean Corpuscular Volume 80 FL (80-99) Mean Corpuscular Hemoglobin 25.5 PG (27.0-31.0) L Mean Corpuscular Hemoglobin Concent 32.0 G/DL (32.0-36.0) Red Cell Distribution Width 16.5 % (11.6-14.8) H Platelet Count 240 K/UL (150-450) Mean Platelet Volume 7.0 FL (6.5-10.1) Neutrophils (%) (Auto) 81.6 % (45.0-75.0) H Lymphocytes (%) (Auto) 9.0 % (20.0-45.0) L Monocytes (%) (Auto) 8.9 % (1.0-10.0) Eosinophils (%) (Auto) 0.0 % (0.0-3.0) Basophils (%) (Auto) 0.5 % (0.0-2.0) Sodium Level 132 MMOL/L (136-145) L Potassium Level 4.3 MMOL/L (3.5-5.1) Chloride Level 91 MMOL/L (98-107) L Carbon Dioxide Level 32 MMOL/L (21-32) Anion Gap 9 mmol/L (5-15) Blood Urea Nitrogen 82 mg/dL (7-18) H Creatinine 5.9 MG/DL (0.55-1.30) H Estimat Glomerular Filtration Rate 9.6 mL/min (>60) Glucose Level 165 MG/DL (74-106) H Calcium Level 9.1 MG/DL (8.5-10.1) Current Medications Medications (Trade) Dose Ordered Sig/Aleks Route PRN Reason Start Time Stop Time Status Last Admin Dose Admin Acetaminophen (Tylenol) 650 mg Q6H PRN GT Mild Pain/Temp > 100.5 12/21/18 16:00 01/20/19 15:59 01/01/19 03:50 Acetaminophen/ Hydrocodone Bitart ([place] 5/325) 1 tab Q4H PRN GT Moderate Pain (Pain Scale 4-6) 12/29/18 11:15 01/05/19 11:14 01/01/19 17:36 Apixaban (Eliquis) 2.5 mg BID GT 01/01/19 21:00 01/31/19 20:59 Bacitracin (Bacitracin) 1 applic EVERY 12 HOURS TOPIC 12/11/18 21:00 01/06/19 17:59 01/01/19 08:10 Carvedilol (Coreg) 3.125 mg EVERY 12 HOURS GT 12/21/18 21:00 01/03/19 20:59 12/31/18 08:02 Clotrimazole (Lotrimin) 1 applic BID TOPIC 12/07/18 18:00 01/06/19 17:59 01/01/19 17:05 Collagenase (Santyl) 1 applic DAILY TOPIC 12/29/18 09:00 01/28/19 08:59 01/01/19 08:10 Dextrose (Dextrose 50%) 25 ml Q30M PRN IV Hypoglycemia 12/31/18 23:00 01/30/19 22:59 Dextrose (Dextrose 50%) 50 ml Q30M PRN IV Hypoglycemia 12/31/18 23:00 01/30/19 22:59 Escitalopram Oxalate (Lexapro) 10 mg DAILY GT 12/18/18 09:00 01/17/19 08:59 01/01/19 08:10 Hydralazine HCl (Apresoline) 10 mg Q6H PRN GT For High Blood Pressure 12/03/18 16:45 01/02/19 16:44 12/07/18 04:47 Insulin Aspart (NovoLOG) EVERY 6 HOURS SUBQ 01/01/19 00:00 01/31/19 00:00 01/01/19 17:18 Metoclopramide HCl (Reglan) 5 mg Q6H PRN IVP Nausea & Vomiting 12/30/18 17:30 01/29/19 17:29 12/31/18 04:49 Midodrine (Pro-Amatine) 5 mg BID ORAL 12/31/18 18:00 01/30/19 17:59 01/01/19 17:05 Mirtazapine (Remeron) 15 mg BEDTIME GT 12/21/18 21:00 01/20/19 20:59 12/31/18 20:07 Nitroglycerin (Nitro-Bid) 1 inch TID@0600,1200,1800 TOPIC 12/07/18 12:00 01/06/19 11:59 12/29/18 17:58 Tacrolimus (Prograf) 2 mg MoWeFr@0000,1200 ORAL 12/28/18 00:00 01/27/19 00:00 01/01/19 12:52 Tacrolimus (Prograf) 2 mg TrudiNaren@0900,2100 ORAL 12/26/18 21:00 01/25/19 20:59 12/31/18 20:12 Francois Landis M.D. January 01, 2019 19:21
[2019-01-01 20:00] VITALS: BP 120/52
[2019-01-01] MEDS: Eliquis 2.5mg tablet GT SCH (21:08)
[2019-01-02] VITALS: BP 148/78
[2019-01-02] MEDS: HYDROcodone/Acetamin 5/325 tab GT PRN ×4 (02:33→20:34)
[2019-01-02 04:00] VITALS: BP 107/65
--- NOTE | 2019-01-02 04:15 | Progress Note ---
DATE: 01/01/2019 SUBJECTIVE: The patient's mental condition is unchanged. The patient still continues to have difficulty weaning off from the ventilator. The patient is calm. No behavior issues. worthlessness, hopelessness, decreased energy. MENTAL STATUS EXAMINATION: The patient is alert, oriented times self, place, and situation he is in. Mood is depressed. Affect is constricted, congruent with mood. Thought process is concrete. Thought content, no suicidal or homicidal ideation. Cognition is improving. PLAN: 1. The patient will be continued on Celexa. 2. The patient will continue Remeron. 3. Provide the patient reality orientation and supportive therapy. Jeffrey Lala M.D. DR: BRITANY JOB#: [id number] CC:
[2019-01-02] MEDS: NovoLOG Insulin Flexpen SUBQ SCH ×4 (05:48→23:06)
[2019-01-02] MEDS: Nitroglycerin 2% oint pkt TOPIC SCH ×3 (06:00→18:00)
[2019-01-02 06:05] LABS: BASOPHILS % (AUTO) 0.6 % (0.0-2.0); HEMATOCRIT 27.1 % (42.0-52.0); HEMOGLOBIN 8.5 G/DL (14.2-18.0); LYMPHOCYTES % (AUTO) 12.8 % (20.0-45.0); MEAN CORPUSCULAR VOLUME 80 FL (80-99); MONOCYTES % (AUTO) 7.9 % (1.0-10.0); NEUTROPHILS % (AUTO) 78.7 % (45.0-75.0); PLATELET COUNT 188 K/UL (150-450); RED BLOOD COUNT 3.38 M/UL (4.70-6.10); RED CELL DISTRIBUTION WIDTH 16.8 % (11.6-14.8); WHITE BLOOD COUNT 7.7 K/UL (4.8-10.8)
[2019-01-02 06:23] LABS: ANION GAP 7 mmol/L (5-15); BLOOD UREA NITROGEN 69 mg/dL (7-18); CALCIUM 8.7 MG/DL (8.5-10.1); CARBON DIOXIDE 33 MMOL/L (21-32); CHLORIDE 94 MMOL/L (98-107); POTASSIUM 3.9 MMOL/L (3.5-5.1); SODIUM 134 MMOL/L (136-145)
[2019-01-02 08:00] VITALS: BP 110/64
--- NOTE | 2019-01-02 08:05 | Diagnostic Imaging Report ---
APPROVED REPORT CPT Code: 13478 Present Symptoms Comments: Swelling of right arm RIGHT UPPER EXTREMITY: Imaging reveals acute non-occlusive thrombus in the distal internal jugular vein. Imaging also reveals patency of the subclavian, axillary and brachial veins. The cephalic and basilic veins are within normal limits. TEMI Hardy was informed at 0910 hours.
--- NOTE | 2019-01-02 08:22 | General Progress Note ---
Assessment/Plan Problem List: (1) Transplant ICD Codes: Z94.9 - Transplanted organ and tissue status, unspecified SNOMED: 170332052 (2) HTN (hypertension) ICD Codes: I10 - Essential (primary) hypertension SNOMED: 13414242 (3) Pacemaker ICD Codes: Z95.0 - Presence of cardiac pacemaker SNOMED: 152699475 (4) CHF (congestive heart failure) ICD Codes: I50.9 - Heart failure, unspecified SNOMED: 17654943 (5) DM (diabetes mellitus) ICD Codes: E11.9 - Type 2 diabetes mellitus without complications SNOMED: 15016192 (6) Foot ulcer ICD Codes: L97.509 - Non-pressure chronic ulcer of other part of unspecified foot with unspecified severity SNOMED: 72916369 Qualifiers: Qualified Codes: L97.511 - Non-pressure chronic ulcer of other part of right foot limited to breakdown of skin (7) ESRD (end stage renal disease) on dialysis ICD Codes: N18.6 - End stage renal disease; Z99.2 - Dependence on renal dialysis SNOMED: 688158496 Status: unchanged Assessment/Plan: History of liver transplant, currently on Prograf History of cholecystectomy status post tracheostomy and PEG Infected G-tube site, fu ID recs C. difficile negative would care cx >> GRAM NEGATIVE BACILLUS CT AP reviewed, Moderate to large right pleural effusion. Moderate Ascites. s/p Paracentesis yielding 4.1 yield, r/o SBP restart GTFs GT site care BID/prn topical abx around GT site per ID HD per nephro cont tacrolimus prn transfusions ppi zofran prn Titrate bowel regimen follow labs supportive care Subjective ROS Limited/Unobtainable: No Allergies: Coded Allergies: CEPHALEXIN (Unverified Allergy, Unknown, 02/24/14) SULFAMETHOXAZOLE (Unverified Allergy, Unknown, 02/24/14) TRIMETHOPRIM (Unverified Allergy, Unknown, 02/24/14) Subjective he pulled his NGT again Objective Last 24 Hour Vital Signs Date Time Temp Pulse Resp B/P (MAP) Pulse Ox O2 Delivery O2 Flow Rate FiO2 01/02/19 06:46 80 23 40 01/02/19 06:00 107/65 01/02/19 05:04 73 23 40 01/02/19 04:00 Mechanical Ventilator 01/02/19 04:00 97.6 75 20 107/65 (79) 100 01/02/19 04:00 40 01/02/19 03:31 75 01/02/19 02:42 67 26 40 01/02/19 01:13 76 26 40 01/02/19 00:00 97.7 75 23 148/78 (101) 100 01/02/19 00:00 Mechanical Ventilator 01/01/19 23:36 76 01/01/19 23:10 70 24 40 40 01/01/19 21:25 74 24 40 40 01/01/19 21:03 71 120/52 01/01/19 20:00 40 01/01/19 20:00 96.8 71 26 120/52 (74) 100 01/01/19 20:00 Mechanical Ventilator 01/01/19 19:21 70 01/01/19 19:07 68 24 40 40 01/01/19 17:10 74 24 40 01/01/19 16:00 78 01/01/19 16:00 Mechanical Ventilator 01/01/19 16:00 97.9 70 22 107/60 (76) 98 01/01/19 16:00 40 01/01/19 15:16 78 20 40 01/01/19 13:15 76 18 40 01/01/19 12:00 Mechanical Ventilator 01/01/19 12:00 97.5 69 22 147/93 (111) 98 01/01/19 12:00 40 01/01/19 12:00 67 01/01/19 10:30 77 18 40 01/01/19 09:29 75 20 40 01/01/19 08:56 97.0 71 22 125/54 (77) 95 01/01/19 08:56 Mechanical Ventilator Intake and Output 01/01/19 01/02/19 19:00 07:00 Intake Total 495 ml 600 ml Output Total 2500 ml Balance -2005 ml 600 ml Free Water 60 ml Tube Feeding 495 ml 540 ml Hemodialysis UF 2500 ml # Bowel Movements 2 1 Laboratory Tests 01/01/19 15:30: Body Fluid Glucose [Pending] 01/02/19 05:50: White Blood Count 7.7, Red Blood Count 3.38L, Hemoglobin 8.5L, Hematocrit 27.1L , Mean Corpuscular Volume 80, Mean Corpuscular Hemoglobin 25.1L, Mean Corpuscular Hemoglobin Concent 31.3L, Red Cell Distribution Width 16.8H, Platelet Count 188, Mean Platelet Volume 6.3L, Neutrophils (%) (Auto) 78.7H, Lymphocytes (%) (Auto) 12.8L, Monocytes (%) (Auto) 7.9, Eosinophils (%) (Auto) 0.0, Basophils (%) (Auto) 0.6, Sodium Level 134L, Potassium Level 3.9, Chloride Level 94L, Carbon Dioxide Level 33H, Anion Gap 7, Blood Urea Nitrogen 69H, Creatinine 5.0H, Estimat Glomerular Filtration Rate 11.6, Glucose Level 162H, Calcium Level 8.7, Phosphorus Level 4.0, Magnesium Level 2.3 Height (Feet): 5 Height (Inches): 4.00 Weight (Pounds): 227 General Appearance: no apparent distress EENT: normal ENT inspection Neck: supple Cardiovascular: normal rate Respiratory/Chest: decreased breath sounds Abdomen: normal bowel sounds, non tender, soft Extremities: non-tender Jorge Escalera MD January 02, 2019 08:22
[2019-01-02] MEDS: Bacitracin Oint UD TOPIC SCH ×2 (09:02→20:35)
[2019-01-02] MEDS: Eliquis 2.5mg tablet GT SCH ×2 (09:03→18:24)
--- NOTE | 2019-01-02 11:16 | Diagnostic Imaging Report ---
Indication: Pneumothorax. Follow-up. One day post thoracentesis Comparison: 01/01/2019 A single view chest radiograph was obtained. Findings: Lung volumes are expiratory. Degree of pulmonary edema appears worse today than on the previous film. Cephalized pulmonary vascularity and interstitial opacities noted. Reaccumulating right pleural fluid demonstrated with hazy right basilar opacity increasing over the last 24 hours. Moderate right pneumothorax again demonstrated. Fairly marked, abnormal thickening of the visceral pleura along the surface of the right lung demonstrated indicative of noncompliant trapped lung. Tracheostomy and sternotomy again noted. Pacemaker noted. IMPRESSION: Worsening pulmonary edema. Interval reaccumulation of right pleural fluid consistent with a hydropneumothorax in the context of a trapped right lung.
[2019-01-02 11:57] VITALS: BP 96/70
--- NOTE | 2019-01-02 13:49 | Nephrology Progress Note ---
Assessment/Plan Problem List: (1) ESRD (end stage renal disease) on dialysis (2) Foot ulcer (3) CHF (congestive heart failure) Assessment: Ej Fx 20 % (4) Pacemaker (5) Acute respiratory failure Assessment: with Co2 retention (6) G-tube site cellulitis Assessment ESRD with high K and SOB on admit Foot ulcer, likely infected High Troponin likely NSTMI Pacer , Pleural effusion s/p CABGS s/p Liver transplant Plan dialysis 01/01 next 01/04 labs before HD noted BP low- improved on midodrine per consultants, GI GT site infection, topical antibiotic Neuro note appreciated placement in process vascular esteban regarding heel ulcer per Dr Mcgill pain med change to dilaudid GT Now has tracheostomy and PEG Adjust BP meds add nitro paste TID Antibiotics by ID per cardio and ID Podiatry and Vascular surgical fu ? DC planning? Subjective ROS Limited/Unobtainable: No Objective Objective Last 24 Hour Vital Signs Date Time Temp Pulse Resp B/P (MAP) Pulse Ox O2 Delivery O2 Flow Rate FiO2 01/02/19 13:20 72 24 40 01/02/19 12:00 Mechanical Ventilator 01/02/19 12:00 40 01/02/19 11:57 98.0 73 20 96/70 (79) 100 01/02/19 11:56 96/70 01/02/19 10:59 68 22 40 01/02/19 09:20 64 26 40 01/02/19 09:03 79 117/90 01/02/19 08:00 40 01/02/19 08:00 Mechanical Ventilator 01/02/19 08:00 98.0 71 20 110/64 (79) 100 01/02/19 08:00 76 01/02/19 06:46 80 23 40 01/02/19 06:00 107/65 01/02/19 05:04 73 23 40 01/02/19 04:00 Mechanical Ventilator 01/02/19 04:00 97.6 75 20 107/65 (79) 100 01/02/19 04:00 40 01/02/19 03:31 75 01/02/19 02:42 67 26 40 01/02/19 01:13 76 26 40 01/02/19 00:00 97.7 75 23 148/78 (101) 100 01/02/19 00:00 Mechanical Ventilator 01/01/19 23:36 76 5/17/19 23:10 70 24 40 40 01/01/19 21:25 74 24 40 40 01/01/19 21:03 71 120/52 01/01/19 20:00 40 01/01/19 20:00 96.8 71 26 120/52 (74) 100 01/01/19 20:00 Mechanical Ventilator 01/01/19 19:21 70 01/01/19 19:07 68 24 40 40 01/01/19 17:10 74 24 40 01/01/19 16:00 78 01/01/19 16:00 Mechanical Ventilator 01/01/19 16:00 97.9 70 22 107/60 (76) 98 01/01/19 16:00 40 01/01/19 15:16 78 20 40 Intake and Output 01/01/19 01/02/19 18:59 06:59 Intake Total 495 ml 555 ml Output Total 2500 ml Balance -2005 ml 555 ml Free Water 60 ml Tube Feeding 495 ml 495 ml Hemodialysis UF 2500 ml # Bowel Movements 2 1 Laboratory Tests 01/01/19 15:30: Body Fluid Glucose 157 01/02/19 05:50: White Blood Count 7.7, Red Blood Count 3.38L, Hemoglobin 8.5L, Hematocrit 27.1L , Mean Corpuscular Volume 80, Mean Corpuscular Hemoglobin 25.1L, Mean Corpuscular Hemoglobin Concent 31.3L, Red Cell Distribution Width 16.8H, Platelet Count 188, Mean Platelet Volume 6.3L, Neutrophils (%) (Auto) 78.7H, Lymphocytes (%) (Auto) 12.8L, Monocytes (%) (Auto) 7.9, Eosinophils (%) (Auto) 0.0, Basophils (%) (Auto) 0.6, Sodium Level 134L, Potassium Level 3.9, Chloride Level 94L, Carbon Dioxide Level 33H, Anion Gap 7, Blood Urea Nitrogen 69H, Creatinine 5.0H, Estimat Glomerular Filtration Rate 11.6, Glucose Level 162H, Calcium Level 8.7, Phosphorus Level 4.0, Magnesium Level 2.3 Height (Feet): 5 Height (Inches): 4.00 Weight (Pounds): 227 EENT: other - trach Cardiovascular: normal rate Respiratory/Chest: decreased breath sounds Abdomen: distended, other Objective no other change Fouladian,Nakul MD January 02, 2019 13:49
--- NOTE | 2019-01-02 15:22 | General Progress Note ---
Assessment/Plan Status: unchanged Status Narrative No acute distress. Tracheostomy and ventilator dependent Assessment/Plan: Assessment/Plan Status: unchanged Assessment/Plan: #Right heel diabetic foot ulcer without osteomyelitis #PAD #Right IJ DVT -seen by Podiatry and ID -s/p Vanco x 2 weeks during HD -s/p selective RLE angio with SFA/pop stenting 12/22/18 Dr. Salmeron with whom I discussed the case today. -resumed Eliquis -Vascular Surgery and Hematology following - Hb 8.5 #Acute Resp hypercapnic failure s/p trach #Angioedema #Large right pleural effusion # R side trapped lung -continue trach care -Remains vent-dependant, breathing trials ongoing -Right thoracentesis 01/01/19 with 2.3 lt removed. Post procedure CXR with R trapped lung. -Pulm following, will need to discuss next steps for weaning trials. #End-stage renal disease, on dialysis M-W-F #RUE edema #Anasarca, ascites, scrotal edema, pleural effusion due to hypoalbuminemia -HD with UF per Nephrology - Per discussion with Dr. Salmeorn from vascular surgery will order R leg doppler US. #Coronary artery disease -continue ASA, Coreg, atorvastatin -cardiology following #Type 2 DM -ISS #Acute metabolic encephalopathy -continue supportive care -Neurology following - Improved and baseline mentation now. #history of chronic HCV infection #history of liver transplant -continue Prograf -GI following #Abdominal distension and ascites -no nausea, vomiting or tenderness -continue supportive care -GI following -s/p paracentesis 12/31/18 4.1 lt #Dysphagia S/p PEG with PEG site cellulitis -s/p antibiotics per ID and GI -continue local wound care - tolerating tube feeds # FULL CODE Subjective ROS Limited/Unobtainable: Yes Constitutional: Reports: malaise; Denies: no symptoms, chills, diaphoresis, fever, weakness, other Cardiovascular: Denies: no symptoms, chest pain, edema, irregular heart rate, lightheadedness, palpitations, syncope, other Genitourinary: Reports: other - testicular swelling 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: Denies: no symptoms, anxiety, depressed, emotional problems, headache, numbness, paresthesia, pre-existing deficit, seizure, tingling, tremors, weakness, other Allergies: Coded Allergies: CEPHALEXIN (Unverified Allergy, Unknown, 7/10/14) SULFAMETHOXAZOLE (Unverified Allergy, Unknown, 02/24/14) TRIMETHOPRIM (Unverified Allergy, Unknown, 02/24/14) Subjective patient is s/p tracheostomy and PEG. 01/01 thoracentesis L side 2.3 lt 12/31 paracenthesis 4.1 lt 12/30 last weaning trial Objective Last 24 Hour Vital Signs Date Time Temp Pulse Resp B/P (MAP) Pulse Ox O2 Delivery O2 Flow Rate FiO2 01/02/19 13:20 72 24 40 01/02/19 12:00 Mechanical Ventilator 01/02/19 12:00 40 01/02/19 11:57 98.0 73 20 96/70 (79) 100 01/02/19 11:56 96/70 01/02/19 10:59 68 22 40 01/02/19 09:20 64 26 40 01/02/19 09:03 79 117/90 01/02/19 08:00 40 01/02/19 08:00 Mechanical Ventilator 01/02/19 08:00 98.0 71 20 110/64 (79) 100 01/02/19 08:00 76 01/02/19 06:46 80 23 40 01/02/19 06:00 107/65 01/02/19 05:04 73 23 40 01/02/19 04:00 Mechanical Ventilator 01/02/19 04:00 97.6 75 20 107/65 (79) 100 01/02/19 04:00 40 01/02/19 03:31 75 01/02/19 02:42 67 26 40 01/02/19 01:13 76 26 40 01/02/19 00:00 97.7 75 23 148/78 (101) 100 01/02/19 00:00 Mechanical Ventilator 01/01/19 23:36 76 01/01/19 23:10 70 24 40 40 01/01/19 21:25 74 24 40 40 01/01/19 21:03 71 120/52 01/01/19 20:00 40 01/01/19 20:00 96.8 71 26 120/52 (74) 100 01/01/19 20:00 Mechanical Ventilator 01/01/19 19:21 70 01/01/19 19:07 68 24 40 40 01/01/19 17:10 74 24 40 01/01/19 16:00 78 01/01/19 16:00 Mechanical Ventilator 01/01/19 16:00 97.9 70 22 107/60 (76) 98 01/01/19 16:00 40 01/01/19 15:16 78 20 40 Intake and Output 01/01/19 01/02/19 18:59 06:59 Intake Total 495 ml 555 ml Output Total 2500 ml Balance -2005 ml 555 ml Free Water 60 ml Tube Feeding 495 ml 495 ml Hemodialysis UF 2500 ml # Bowel Movements 2 1 Laboratory Tests 01/01/19 15:30: Body Fluid Glucose 157 01/02/19 05:50: White Blood Count 7.7, Red Blood Count 3.38L, Hemoglobin 8.5L, Hematocrit 27.1L , Mean Corpuscular Volume 80, Mean Corpuscular Hemoglobin 25.1L, Mean Corpuscular Hemoglobin Concent 31.3L, Red Cell Distribution Width 16.8H, Platelet Count 188, Mean Platelet Volume 6.3L, Neutrophils (%) (Auto) 78.7H, Lymphocytes (%) (Auto) 12.8L, Monocytes (%) (Auto) 7.9, Eosinophils (%) (Auto) 0.0, Basophils (%) (Auto) 0.6, Sodium Level 134L, Potassium Level 3.9, Chloride Level 94L, Carbon Dioxide Level 33H, Anion Gap 7, Blood Urea Nitrogen 69H, Creatinine 5.0H, Estimat Glomerular Filtration Rate 11.6, Glucose Level 162H, Calcium Level 8.7, Phosphorus Level 4.0, Magnesium Level 2.3 abdominal fluid negative for malignancy 12/31/18 Height (Feet): 5 Height (Inches): 4.00 Weight (Pounds): 227 - 103.1 Kg 01/02/19 General Appearance: alert, moderate distress, morbidly obese, alert oriented x3 EENT: PERRL/EOMI, other - tracheostomy Neck: non-tender Cardiovascular: normal rate, no JVD Respiratory/Chest: chest wall non-tender, decreased breath sounds Abdomen: normal bowel sounds, non tender, other - PEG Pelvis: other Genitourinary/Rectal: other - scrotal edema Edema: mild edema 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
--- NOTE | 2019-01-02 15:43 | Cardiac Electrophysiology PN ---
Assessment/Plan Assessment/Plan 1. Troponin leak due to renal failure. No CP or SOB 2. CAD. S/P CABG. On Coreg 3.125 bid, aspirin and Lipitor 3. NSVT in setting of old [place] and CABG. EF 55%. Continue Coreg 4. CHF and right pleural effusion. On hemodialysis. Thoracentesis pending 5. S/P Right sided Medtronic dual chamber pacemaker with Nl Fx. 6. End-stage renal disease, on hemodialysis per Dr. Stevens S/P Fistulogram by Dr. Salmeron 7. Multilevel AOD LE's with non-healing Right foot ulcer. Had abdominal angiogram per Dr Salmeron Antibiotic per Dr. Landis. FU by Dr. Huizar S/P peripheral intervention by Dr. Salmeron 12/22/18 Right foot on Wound-Vac 8. History of liver transplant on Prograf 9. Respiratory failure, S/P tracheostomy. 10. Pleural effusion. s/p 2300 cc thoracentesis 01/01/[address] Mendoza 11. Dysphagia, S/P PEG 12. Low BP. On Midodrine 5 bid Subjective Subjective Comfortable in NAD. Awaiting placement.Had thoracentesis after HD 01/01/19 Objective Last 24 Hour Vital Signs Date Time Temp Pulse Resp B/P (MAP) Pulse Ox O2 Delivery O2 Flow Rate FiO2 01/02/19 13:20 72 24 40 01/02/19 12:00 72 01/02/19 12:00 Mechanical Ventilator 01/02/19 12:00 40 01/02/19 11:57 98.0 73 20 96/70 (79) 100 01/02/19 11:56 96/70 01/02/19 10:59 68 22 40 01/02/19 09:20 64 26 40 01/02/19 09:03 79 117/90 01/02/19 08:00 40 01/02/19 08:00 Mechanical Ventilator 01/02/19 08:00 98.0 71 20 110/64 (79) 100 01/02/19 08:00 76 01/02/19 06:46 80 23 40 01/02/19 06:00 107/65 01/02/19 05:04 73 23 40 01/02/19 04:00 Mechanical Ventilator 01/02/19 04:00 97.6 75 20 107/65 (79) 100 01/02/19 04:00 40 01/02/19 03:31 75 01/02/19 02:42 67 26 40 01/02/19 01:13 76 26 40 01/02/19 00:00 97.7 75 23 148/78 (101) 100 01/02/19 00:00 Mechanical Ventilator 01/01/19 23:36 76 01/01/19 23:10 70 24 40 40 01/01/19 21:25 74 24 40 40 01/01/19 21:03 71 120/52 01/01/19 20:00 40 01/01/19 20:00 96.8 71 26 120/52 (74) 100 01/01/19 20:00 Mechanical Ventilator 01/01/19 19:21 70 01/01/19 19:07 68 24 40 40 01/01/19 17:10 74 24 40 01/01/19 16:00 78 01/01/19 16:00 Mechanical Ventilator 01/01/19 16:00 97.9 70 22 107/60 (76) 98 01/01/19 16:00 40 Intake and Output 01/01/19 01/02/19 18:59 06:59 Intake Total 495 ml 555 ml Output Total 2500 ml Balance -2005 ml 555 ml Free Water 60 ml Tube Feeding 495 ml 495 ml Hemodialysis UF 2500 ml # Bowel Movements 2 1 Laboratory Tests Test 01/02/19 05:50 White Blood Count 7.7 K/UL (4.8-10.8) Red Blood Count 3.38 M/UL (4.70-6.10) L Hemoglobin 8.5 G/DL (14.2-18.0) L Hematocrit 27.1 % (42.0-52.0) L Mean Corpuscular Volume 80 FL (80-99) Mean Corpuscular Hemoglobin 25.1 PG (27.0-31.0) L Mean Corpuscular Hemoglobin Concent 31.3 G/DL (32.0-36.0) L Red Cell Distribution Width 16.8 % (11.6-14.8) H Platelet Count 188 K/UL (150-450) Mean Platelet Volume 6.3 FL (6.5-10.1) L Neutrophils (%) (Auto) 78.7 % (45.0-75.0) H Lymphocytes (%) (Auto) 12.8 % (20.0-45.0) L Monocytes (%) (Auto) 7.9 % (1.0-10.0) Eosinophils (%) (Auto) 0.0 % (0.0-3.0) Basophils (%) (Auto) 0.6 % (0.0-2.0) Sodium Level 134 MMOL/L (136-145) L Potassium Level 3.9 MMOL/L (3.5-5.1) Chloride Level 94 MMOL/L (98-107) L Carbon Dioxide Level 33 MMOL/L (21-32) H Anion Gap 7 mmol/L (5-15) Blood Urea Nitrogen 69 mg/dL (7-18) H Creatinine 5.0 MG/DL (0.55-1.30) H Estimat Glomerular Filtration Rate 11.6 mL/min (>60) Glucose Level 162 MG/DL (74-106) H Calcium Level 8.7 MG/DL (8.5-10.1) Phosphorus Level 4.0 MG/DL (2.5-4.9) Magnesium Level 2.3 MG/DL (1.8-2.4) Microbiology Date/Time Source Procedure Growth Status 01/01/19 15:30 Pleural Fluid Gram Stain - Final Resulted 01/01/19 15:30 Pleural Fluid Body Fluid Culture - Preliminary NO GROWTH Resulted 12/31/18 13:22 Ascities Fluid Gram Stain - Final Resulted 12/31/18 13:22 Ascities Fluid Body Fluid Culture - Preliminary NO GROWTH AFTER 48 HOURS Resulted Objective HEAD AND NECK: No JVD. Tracheostomy intact LUNGS: Clear CARDIOVASCULAR: Irregular S1 and S2 with no gallop. Sternotomy is intact Pacemaker in the right subclavian ABDOMEN: Soft.PEG in place EXTREMITIES: 1+ pitting edema. Right heel in dressing and connected to WoundVac Shivam Sharpe MD January 02, 2019 15:43
--- NOTE | 2019-01-02 15:49 | Infectious Diseases Prog Note ---
Assessment/Plan Problems: (1) Foot ulcer Assessment & Plan: with MRSA grew out of it in the past, S/P vancomycin treatment with HD for two weeks, had vascular eval with revascularization to the right leg , S/P ulcer resection by director talent management . deep ulcer culture grew MRSA and E.coli with diphtheroids , possible colonization , with no evidence of active infection as per discussion with podiatry , no need to be started on antibiotics for now , will continue to monitor clinically and make recommendations as necessary . bone scan ruled out osteomyelitis of the heel before, couldn't do an MRI since on the vent . continue local wound care as per director talent management . (2) G-tube site cellulitis Assessment & Plan: improved, still with mild erythema and tube feeding draining , culture from the G tube site previously grew pseudomonas , S/P ciprofloxacin for 7 days , continue local care as per GI. keep area clean and dry . may need tube change if continue to leak the feeding tube materials (3) Thrush, oral Assessment & Plan: continue local nystatin as needed , S/P micafungin for three weeks empirically (4) HCV antibody positive Assessment & Plan: no evidence of active infection, with undetectable viral load , suspect due to previous infection , cleared, S/P liver transplant . (5) DM (diabetes mellitus) Assessment & Plan: recommend tight glycemic control to keep blood glucose between 100-140 (6) CHF (congestive heart failure) Assessment & Plan: on HD , renal is following, monitor daily weight (7) Severe tongue swelling Assessment & Plan: improving , s/p tracheostomy to protect his airway since respiratory status worsened . now improving, pulmonary is following (8) Pleural effusion Assessment & Plan: recurrent on the right, with lung collapse , S/P thoracentesis X 3 now with removal of 2.3 liters of clear fluids on 12/31/18 . await fluids culture and gram stain, with PH and Glucose level . PREVIOUS culture were negative with negative cytology. pulmonary is following (9) Ascites Assessment & Plan: S/P paracentesis with removal of 4.1 liters of fluids, culture so far is negative Assessment/Plan will continue to monitor patient on daily basis and make recommendations as necessary since he is high risk for recurrent infection Subjective Constitutional: Reports: no symptoms HEENT: Reports: no symptoms Respiratory: Reports: no symptoms Breasts: Reports: no symptoms Cardiovascular: Reports: no symptoms Gastrointestinal/Abdominal: Reports: no symptoms Genitourinary: Reports: no symptoms Neurologic: Reports: no symptoms Psychiatric: Reports: no symptoms Skin: Reports: no symptoms Endocrine: Reports: no symptoms Hematologic: Reports: no symptoms Allergies: Coded Allergies: CEPHALEXIN (Unverified Allergy, Unknown, 02/24/14) SULFAMETHOXAZOLE (Unverified Allergy, Unknown, 02/24/14) TRIMETHOPRIM (Unverified Allergy, Unknown, 02/24/14) Subjective he was comfortable, lying in bed, denied any fever or chills, no significant secretions, no SOB . has heel pain at the surgery site with wound VAC in place , but no draining coming out Objective Vital Signs Last 24 Hour Vital Signs Date Time Temp Pulse Resp B/P (MAP) Pulse Ox O2 Delivery O2 Flow Rate FiO2 01/02/19 13:20 72 24 40 01/02/19 12:00 72 01/02/19 12:00 Mechanical Ventilator 01/02/19 12:00 40 01/02/19 11:57 98.0 73 20 96/70 (79) 100 01/02/19 11:56 96/70 01/02/19 10:59 68 22 40 01/02/19 09:20 64 26 40 01/02/19 09:03 79 117/90 01/02/19 08:00 40 01/02/19 08:00 Mechanical Ventilator 01/02/19 08:00 98.0 71 20 110/64 (79) 100 01/02/19 08:00 76 01/02/19 06:46 80 23 40 01/02/19 06:00 107/65 01/02/19 05:04 73 23 40 01/02/19 04:00 Mechanical Ventilator 01/02/19 04:00 97.6 75 20 107/65 (79) 100 01/02/19 04:00 40 01/02/19 03:31 75 01/02/19 02:42 67 26 40 01/02/19 01:13 76 26 40 01/02/19 00:00 97.7 75 23 148/78 (101) 100 01/02/19 00:00 Mechanical Ventilator 01/01/19 23:36 76 01/01/19 23:10 70 24 40 40 01/01/19 21:25 74 24 40 40 01/01/19 21:03 71 120/52 01/01/19 20:00 40 01/01/19 20:00 96.8 71 26 120/52 (74) 100 01/01/19 20:00 Mechanical Ventilator 01/01/19 19:21 70 01/01/19 19:07 68 24 40 40 01/01/19 17:10 74 24 40 01/01/19 16:00 78 01/01/19 16:00 Mechanical Ventilator 01/01/19 16:00 97.9 70 22 107/60 (76) 98 01/01/19 16:00 40 Height (Feet): 5 Height (Inches): 4.00 Weight (Pounds): 227 - 103.1 Kg 01/02/19 General Appearance: WD/WN, no acute distress HEENT: normocephalic, atraumatic, anicteric, mucous membranes moist, PERRL Respiratory/Chest: chest wall non-tender, lungs clear, normal breath sounds, no respiratory distress, no accessory muscle use Cardiovascular: normal peripheral pulses, normal rate, regular rhythm, no gallop/murmur, no JVD Abdomen: normal bowel sounds, soft, non tender, no organomegaly, non distended , no mass, no scars Genitourinary: normal external genitalia Extremities: no cyanosis, no clubbing Skin: no rash, no lesions Microbiology Date/Time Source Procedure Growth Status 01/01/19 15:30 Pleural Fluid Gram Stain - Final Resulted 01/01/19 15:30 Pleural Fluid Body Fluid Culture - Preliminary NO GROWTH Resulted 12/31/18 13:22 Ascities Fluid Gram Stain - Final Resulted 12/31/18 13:22 Ascities Fluid Body Fluid Culture - Preliminary NO GROWTH AFTER 48 HOURS Resulted Laboratory Tests Test 01/02/19 05:50 White Blood Count 7.7 K/UL (4.8-10.8) Red Blood Count 3.38 M/UL (4.70-6.10) L Hemoglobin 8.5 G/DL (14.2-18.0) L Hematocrit 27.1 % (42.0-52.0) L Mean Corpuscular Volume 80 FL (80-99) Mean Corpuscular Hemoglobin 25.1 PG (27.0-31.0) L Mean Corpuscular Hemoglobin Concent 31.3 G/DL (32.0-36.0) L Red Cell Distribution Width 16.8 % (11.6-14.8) H Platelet Count 188 K/UL (150-450) Mean Platelet Volume 6.3 FL (6.5-10.1) L Neutrophils (%) (Auto) 78.7 % (45.0-75.0) H Lymphocytes (%) (Auto) 12.8 % (20.0-45.0) L Monocytes (%) (Auto) 7.9 % (1.0-10.0) Eosinophils (%) (Auto) 0.0 % (0.0-3.0) Basophils (%) (Auto) 0.6 % (0.0-2.0) Sodium Level 134 MMOL/L (136-145) L Potassium Level 3.9 MMOL/L (3.5-5.1) Chloride Level 94 MMOL/L (98-107) L Carbon Dioxide Level 33 MMOL/L (21-32) H Anion Gap 7 mmol/L (5-15) Blood Urea Nitrogen 69 mg/dL (7-18) H Creatinine 5.0 MG/DL (0.55-1.30) H Estimat Glomerular Filtration Rate 11.6 mL/min (>60) Glucose Level 162 MG/DL (74-106) H Calcium Level 8.7 MG/DL (8.5-10.1) Phosphorus Level 4.0 MG/DL (2.5-4.9) Magnesium Level 2.3 MG/DL (1.8-2.4) Current Medications Medications (Trade) Dose Ordered Sig/Aleks Route PRN Reason Start Time Stop Time Status Last Admin Dose Admin Acetaminophen (Tylenol) 650 mg Q6H PRN GT Mild Pain/Temp > 100.5 12/21/18 16:00 01/20/19 15:59 01/01/19 23:38 Acetaminophen/ Hydrocodone Bitart ([place] 5/325) 1 tab Q4H PRN GT Moderate Pain (Pain Scale 4-6) 12/29/18 11:15 01/05/19 11:14 01/02/19 11:33 Apixaban (Eliquis) 2.5 mg BID GT 01/01/19 21:00 01/31/19 20:59 01/02/19 09:03 Bacitracin (Bacitracin) 1 applic EVERY 12 HOURS TOPIC 12/11/18 21:00 01/06/19 17:59 01/02/19 09:02 Carvedilol (Coreg) 3.125 mg EVERY 12 HOURS GT 12/21/18 21:00 01/03/19 20:59 01/02/19 09:03 Clotrimazole (Lotrimin) 1 applic BID TOPIC 12/07/18 18:00 01/06/19 17:59 01/02/19 09:56 Collagenase (Santyl) 1 applic DAILY TOPIC 12/29/18 09:00 01/28/19 08:59 01/02/19 09:56 Dextrose (Dextrose 50%) 25 ml Q30M PRN IV Hypoglycemia 12/31/18 23:00 01/30/19 22:59 Dextrose (Dextrose 50%) 50 ml Q30M PRN IV Hypoglycemia 12/31/18 23:00 01/30/19 22:59 Escitalopram Oxalate (Lexapro) 10 mg DAILY GT 12/18/18 09:00 01/17/19 08:59 01/02/19 09:03 Hydralazine HCl (Apresoline) 10 mg Q6H PRN GT For High Blood Pressure 12/03/18 16:45 01/02/19 16:44 12/07/18 04:47 Insulin Aspart (NovoLOG) EVERY 6 HOURS SUBQ 01/01/19 00:00 01/31/19 00:00 01/02/19 11:51 Metoclopramide HCl (Reglan) 5 mg Q6H PRN IVP Nausea & Vomiting 12/30/18 17:30 01/29/19 17:29 12/31/18 04:49 Midodrine (Pro-Amatine) 5 mg BID ORAL 12/31/18 18:00 01/30/19 17:59 01/01/19 17:05 Mirtazapine (Remeron) 15 mg BEDTIME GT 12/21/18 21:00 01/20/19 20:59 01/01/19 21:03 Nitroglycerin (Nitro-Bid) 1 inch TID@0600,1200,1800 TOPIC 12/07/18 12:00 01/06/19 11:59 12/29/18 17:58 Tacrolimus (Prograf) 2 mg MoWeFr@0000,1200 ORAL 12/28/18 00:00 01/27/19 00:00 01/01/19 12:52 Tacrolimus (Prograf) 2 mg TrudiNaren@0900,2100 ORAL 12/26/18 21:00 01/25/19 20:59 01/02/19 09:09 Francois Landis M.D. January 02, 2019 15:49
[2019-01-02 16:00] VITALS: BP 92/60
[2019-01-02 20:00] VITALS: BP 101/28
--- NOTE | 2019-01-02 20:45 | Pulmonology Progress Note ---
Assessment/Plan Assessment/Plan 1. Resp failure, hypercapneic 2. End-stage renal disease, on dialysis, status post multiple upper extremity vascular procedures. 3. Coronary artery bypass surgery. 4. Diabetes. 5. Dysphonia, tongue swelling, resolved; s/p trach PLAN: FU CXR friday weaning as tolerated might need more fluid removed with HD hope it will help to wean disc w RN, RT Subjective ROS Limited/Unobtainable: Yes Allergies: Coded Allergies: CEPHALEXIN (Unverified Allergy, Unknown, 02/24/14) SULFAMETHOXAZOLE (Unverified Allergy, Unknown, 02/24/14) TRIMETHOPRIM (Unverified Allergy, Unknown, 02/24/14) Subjective awake minimal secretions on vent no cp nv or bleeding did not feel thoracentsis helps his breathing not getting oob Tolerating TF Objective Last 24 Hour Vital Signs Date Time Temp Pulse Resp B/P (MAP) Pulse Ox O2 Delivery O2 Flow Rate FiO2 01/02/19 20:21 76 101/28 01/02/19 20:00 98.1 76 20 101/28 (52) 98 01/02/19 20:00 Mechanical Ventilator 01/02/19 20:00 40 01/02/19 19:25 81 01/02/19 18:00 92/60 01/02/19 17:26 72 22 40 01/02/19 16:00 98.0 74 20 92/60 (71) 98 01/02/19 16:00 73 01/02/19 16:00 Mechanical Ventilator 01/02/19 16:00 12.0 40 01/02/19 15:20 68 18 40 01/02/19 13:20 72 24 40 01/02/19 12:00 72 01/02/19 12:00 Mechanical Ventilator 01/02/19 12:00 40 01/02/19 11:57 98.0 73 20 96/70 (79) 100 01/02/19 11:56 96/70 01/02/19 10:59 68 22 40 01/02/19 09:20 64 26 40 01/02/19 09:03 79 117/90 01/02/19 08:00 40 01/02/19 08:00 Mechanical Ventilator 01/02/19 08:00 98.0 71 20 110/64 (79) 100 01/02/19 08:00 76 01/02/19 06:46 80 23 40 5/18/19 06:00 107/65 01/02/19 05:04 73 23 40 01/02/19 04:00 Mechanical Ventilator 01/02/19 04:00 97.6 75 20 107/65 (79) 100 01/02/19 04:00 40 01/02/19 03:31 75 01/02/19 02:42 67 26 40 01/02/19 01:13 76 26 40 01/02/19 00:00 97.7 75 23 148/78 (101) 100 01/02/19 00:00 Mechanical Ventilator 01/01/19 23:36 76 01/01/19 23:10 70 24 40 40 01/01/19 21:25 74 24 40 40 01/01/19 21:03 71 120/52 Intake and Output 01/01/19 01/02/19 19:00 07:00 Intake Total 495 ml 600 ml Output Total 2500 ml Balance -2005 ml 600 ml Free Water 60 ml Tube Feeding 495 ml 540 ml Hemodialysis UF 2500 ml # Bowel Movements 2 1 General Appearance: WD/WN Respiratory/Chest: lungs clear, crackles/rales Cardiovascular: normal rate, regular rhythm, murmur systolic Abdomen: soft, non tender, no organomegaly 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: nurses aide 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 normal, no motor/sensory deficits, alert, oriented x 3 Microbiology Date/Time Source Procedure Growth Status 01/01/19 15:30 Pleural Fluid Gram Stain - Final Resulted 01/01/19 15:30 Pleural Fluid Body Fluid Culture - Preliminary NO GROWTH Resulted 12/31/18 13:22 Ascities Fluid Gram Stain - Final Resulted 12/31/18 13:22 Ascities Fluid Body Fluid Culture - Preliminary NO GROWTH AFTER 48 HOURS Resulted Laboratory Tests 01/02/19 05:50: White Blood Count 7.7, Red Blood Count 3.38L, Hemoglobin 8.5L, Hematocrit 27.1L , Mean Corpuscular Volume 80, Mean Corpuscular Hemoglobin 25.1L, Mean Corpuscular Hemoglobin Concent 31.3L, Red Cell Distribution Width 16.8H, Platelet Count 188, Mean Platelet Volume 6.3L, Neutrophils (%) (Auto) 78.7H, Lymphocytes (%) (Auto) 12.8L, Monocytes (%) (Auto) 7.9, Eosinophils (%) (Auto) 0.0, Basophils (%) (Auto) 0.6, Sodium Level 134L, Potassium Level 3.9, Chloride Level 94L, Carbon Dioxide Level 33H, Anion Gap 7, Blood Urea Nitrogen 69H, Creatinine 5.0H, Estimat Glomerular Filtration Rate 11.6, Glucose Level 162H, Calcium Level 8.7, Phosphorus Level 4.0, Magnesium Level 2.3 Current Medications Medications (Trade) Dose Ordered Sig/Aleks Route PRN Reason Start Time Stop Time Status Last Admin Dose Admin Acetaminophen (Tylenol) 650 mg Q6H PRN GT Mild Pain/Temp > 100.5 12/21/18 16:00 01/20/19 15:59 01/01/19 23:38 Acetaminophen/ Hydrocodone Bitart (Fenton 5/325) 1 tab Q4H PRN GT Moderate Pain (Pain Scale 4-6) 12/29/18 11:15 01/05/19 11:14 01/02/19 20:34 Apixaban (Eliquis) 2.5 mg BID GT 01/01/19 21:00 01/31/19 20:59 01/02/19 18:24 Bacitracin (Bacitracin) 1 applic EVERY 12 HOURS TOPIC 12/11/18 21:00 01/06/19 17:59 01/02/19 20:35 Carvedilol (Coreg) 3.125 mg EVERY 12 HOURS GT 12/21/18 21:00 01/03/19 20:59 01/02/19 09:03 Clotrimazole (Lotrimin) 1 applic BID TOPIC 12/07/18 18:00 01/06/19 17:59 01/02/19 18:25 Collagenase (Santyl) 1 applic DAILY TOPIC 12/29/18 09:00 01/28/19 08:59 01/02/19 09:56 Dextrose (Dextrose 50%) 25 ml Q30M PRN IV Hypoglycemia 12/31/18 23:00 01/30/19 22:59 Dextrose (Dextrose 50%) 50 ml Q30M PRN IV Hypoglycemia 12/31/18 23:00 01/30/19 22:59 Escitalopram Oxalate (Lexapro) 10 mg DAILY GT 12/18/18 09:00 01/17/19 08:59 01/02/19 09:03 Insulin Aspart (NovoLOG) EVERY 6 HOURS SUBQ 01/01/19 00:00 01/31/19 00:00 01/02/19 18:55 Metoclopramide HCl (Reglan) 5 mg Q6H PRN IVP Nausea & Vomiting 12/30/18 17:30 01/29/19 17:29 12/31/18 04:49 Midodrine (Pro-Amatine) 5 mg BID ORAL 12/31/18 18:00 01/30/19 17:59 01/02/19 18:24 Mirtazapine (Remeron) 15 mg BEDTIME GT 12/21/18 21:00 01/20/19 20:59 01/02/19 20:35 Nitroglycerin (Nitro-Bid) 1 inch TID@0600,1200,1800 TOPIC 12/07/18 12:00 01/06/19 11:59 12/29/18 17:58 Tacrolimus (Prograf) 2 mg MoWeFr@0000,1200 ORAL 12/28/18 00:00 01/27/19 00:00 01/01/19 12:52 Tacrolimus (Prograf) 2 mg SuTuThSa@0900,2100 ORAL 12/26/18 21:00 01/25/19 20:59 01/02/19 20:35 Christina Perez DO January 02, 2019 20:45
--- NOTE | 2019-01-02 21:07 | General Progress Note ---
Assessment/Plan Status: unchanged Assessment/Plan: Assessment and Recs: # Acute non-occlusive dvt, right extremity ultrasound (acute non-occlusive DVT in internal jugular) --> currently is on eliquis 2.5mg po bid, which recommend to continue (at this time on hold until further orders) --> do not recommend a SVC filter --> given prior bleeding risk, hold off on heparin gtt --> vasc surgeon is aware, seek recs # Anemia of chronic disease due to underlying chronic medical issues --> ferritin is 633, tibc is low --> No evidence of hemolysis is noted, peripheral smear has been reviewed. --> Epogen can be consider if hgb downtrends --> Medications have been reviewed --> evaluate with Gi team prn --> transfuse if hgb is < 7 (will trend CBC daily) --> hgb trend 11.2-->10.9-->10.8-->10.7-->10.2-->9.7-->9.7-->8.5-->9-->9.2 # Failure to thrive is likely related to poor overall status, poor functional status --> with multiple decub ulcerations that are noted, seen by id/surgery --> s/p trach as well --> cea is wnl # Coagulopathy likely secondary to decreased Vitk dependent cofactors (high INR , PT) --> monitor closely for any evidence of bleeding. Currently is on eliquis --> VIT K on prn basis sq can be administered ==> recently has improved inr 1.2-->1.1-->1.2 # Acute respiratory failure is now s/p trach to vent --> as per surgery recs # Ground glass opacities present on imaging of lung --> with pleural effusions, s/p drainage at this time --> no evidence for malignancy is noted --> as per pulm/id # Pleural effusion --> s/p thoracentesis, s/p paracentesis 12/31 --> no evidence of malignancy # Hyperkalemia --> kayxelate on prn basis per renal # Renal failure --> per renal recs, appreciated --> getting hd as per schedule # Altered level of consciousness ==> currently as per baseline # PAD off heparin gtt and now on eliquis --> per vasc and cards --> 12/22 s/p right leg angiogram with intervention --> on eliquis, continue # Gt tube cellulitis, on topical abx as per id around site The timing of this note does not necessarily reflect the time of the patient was seen. Greatly appreciate consultation! Subjective Constitutional: Denies: no symptoms, chills, diaphoresis, fever, malaise, weakness, other HEENT: Denies: no symptoms, eye pain, blurred vision, tearing, double vision, ear pain, ear discharge, nose pain, nose congestion, throat pain, throat swelling, mouth pain, mouth swelling, other Cardiovascular: Denies: no symptoms, chest pain, edema, irregular heart rate, lightheadedness, palpitations, syncope, other Gastrointestinal/Abdominal: Denies: no symptoms, abdomen distended, abdominal pain, black stools, tarry stools, blood in stool, constipated, diarrhea, difficulty swallowing, nausea, poor appetite, poor fluid intake, rectal bleeding , vomiting, other Genitourinary: Denies: no symptoms, burning, discharge, frequency, flank pain, hematuria, incontinence, pain, urgency, other 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: Denies: no symptoms, anxiety, depressed, emotional problems, headache, numbness, paresthesia, pre-existing deficit, seizure, tingling, tremors, weakness, other Allergies: Coded Allergies: CEPHALEXIN (Unverified Allergy, Unknown, 02/24/14) SULFAMETHOXAZOLE (Unverified Allergy, Unknown, 02/24/14) TRIMETHOPRIM (Unverified Allergy, Unknown, 02/24/14) Subjective 11/30: comfortable, on abx, no complaints, on t-piece 12/01: to have hd done potentially tomorrow, is more alert/awake 12/02: no major bleeding, hgb remains approx 11, no changes 12/03: no events, breathing mildly better, hgb is improved 12/04: on vent/trach, no major changes, sr ekg 12/10: small amount of secretions, on trach/vent, no issues otherwise 12/11: no major issues, no complaints, labs reviewed, no sig changes 12/13: no events to report, no fevers or chills, awaiting placement 12/14: no changes, no major events to report, no fevers or chills 12/15: pending placement, getting gt feeds and hd as per renal 12/16: labs have been reviewed, cbc noted, no changes 12/17: no events, no fevers, no cp, hgb remains stable 12/18: restarted on heparin gtt, seen by pulm, cards 12/20: continues to be on heparin gtt, no bleeding reported, no f/c 12/21: hd for today, no fevers or chils, off hep gtt on eliquis 12/22: to get hd tomorrow, today is s/p right leg angiogram with intervention 12/23: hgb remins stable, no fevers or chills reported 12/24: no events, no bleeding, vitals reviewed, cbc stable 12/25: no events, no bleeding, on vent, hgb 9 12/27: no changes, no f/c, no night swearts, seen with other providers 12/28: right extremity ultrasound (acute non-occlusive DVT in internal jugular, on eliquis 12/29: no events, no night sweats, seen by gi, no bleeding 12/30: cbc has been reviewed, no f/c, no night sweats reported 12/31: no events, eliquis is on hold cbc has been reviewed, bp elevated 01/01: no fevers or chills, cbc reviewed, hgb 9.3, getting HD 01/02: no events noted, getting norco for pain, hgb stable Objective Last 24 Hour Vital Signs Date Time Temp Pulse Resp B/P (MAP) Pulse Ox O2 Delivery O2 Flow Rate FiO2 01/02/19 20:21 76 101/28 01/02/19 20:00 98.1 76 20 101/28 (52) 98 01/02/19 20:00 Mechanical Ventilator 01/02/19 20:00 40 01/02/19 19:25 81 01/02/19 18:00 92/60 01/02/19 17:26 72 22 40 01/02/19 16:00 98.0 74 20 92/60 (71) 98 01/02/19 16:00 73 01/02/19 16:00 Mechanical Ventilator 01/02/19 16:00 12.0 40 01/02/19 15:20 68 18 40 01/02/19 13:20 72 24 40 01/02/19 12:00 72 01/02/19 12:00 Mechanical Ventilator 01/02/19 12:00 40 01/02/19 11:57 98.0 73 20 96/70 (79) 100 01/02/19 11:56 96/70 01/02/19 10:59 68 22 40 01/02/19 09:20 64 26 40 01/02/19 09:03 79 117/90 01/02/19 08:00 40 01/02/19 08:00 Mechanical Ventilator 01/02/19 08:00 98.0 71 20 110/64 (79) 100 01/02/19 08:00 76 01/02/19 06:46 80 23 40 01/02/19 06:00 107/65 01/02/19 05:04 73 23 40 01/02/19 04:00 Mechanical Ventilator 01/02/19 04:00 97.6 75 20 107/65 (79) 100 01/02/19 04:00 40 01/02/19 03:31 75 01/02/19 02:42 67 26 40 01/02/19 01:13 76 26 40 01/02/19 00:00 97.7 75 23 148/78 (101) 100 01/02/19 00:00 Mechanical Ventilator 01/01/19 23:36 76 01/01/19 23:10 70 24 40 40 01/01/19 21:25 74 24 40 40 01/01/19 21:03 71 120/52 Intake and Output 01/01/19 01/02/19 19:00 07:00 Intake Total 495 ml 600 ml Output Total 2500 ml Balance -2005 ml 600 ml Free Water 60 ml Tube Feeding 495 ml 540 ml Hemodialysis UF 2500 ml # Bowel Movements 2 1 Laboratory Tests 01/02/19 05:50: White Blood Count 7.7, Red Blood Count 3.38L, Hemoglobin 8.5L, Hematocrit 27.1L , Mean Corpuscular Volume 80, Mean Corpuscular Hemoglobin 25.1L, Mean Corpuscular Hemoglobin Concent 31.3L, Red Cell Distribution Width 16.8H, Platelet Count 188, Mean Platelet Volume 6.3L, Neutrophils (%) (Auto) 78.7H, Lymphocytes (%) (Auto) 12.8L, Monocytes (%) (Auto) 7.9, Eosinophils (%) (Auto) 0.0, Basophils (%) (Auto) 0.6, Sodium Level 134L, Potassium Level 3.9, Chloride Level 94L, Carbon Dioxide Level 33H, Anion Gap 7, Blood Urea Nitrogen 69H, Creatinine 5.0H, Estimat Glomerular Filtration Rate 11.6, Glucose Level 162H, Calcium Level 8.7, Phosphorus Level 4.0, Magnesium Level 2.3 Height (Feet): 5 Height (Inches): 4.00 Weight (Pounds): 227 - 103.1 Kg 01/02/19 Objective PE General Appearance: mild distress, moderate distress Lines, tubes and drains: peripheral HEENT: EOMI, thrush, tonsils swollen ++trach Neck: normal inspection Respiratory/Chest: decreased breath sounds, accessory muscle use Cardiovascular/Chest: tachycardia Abdomen: soft, no organomegaly, no mass, ++ peg Extremities: other Skin Exam: warm/dry, rash Neurologic: alert, responsive Zacarias Khoury MD January 02, 2019 21:07
[2019-01-03] VITALS: BP 101/50
--- NOTE | 2019-01-03 02:30 | Progress Note ---
DATE: 01/02/2019 SUBJECTIVE: The patient's mental condition is unchanged. He . The patient is calm and has depressed mood, anhedonia, worthlessness, hopelessness, and decreased energy. Poor insight into the current situation he is in. Low energy. Difficulty sleeping. MENTAL STATUS EXAMINATION: Alert and oriented times self, place, and situation. Mood is depressed and anxious. Affect is constricted. Congruent with mood. Thought process is concrete. Thought content, no suicidal or homicidal ideation. PLAN: 1. We will continue with the current medication. 2. Provide the patient with reality orientation and supportive therapy. Jeffrey Lala M.D. DR: LINDA JOB#: [id number] CC:
[2019-01-03 04:00] VITALS: BP 117/58
[2019-01-03] MEDS: HYDROcodone/Acetamin 5/325 tab GT PRN (04:13)
[2019-01-03] MEDS: Nitroglycerin 2% oint pkt TOPIC SCH ×3 (05:22→18:00)
[2019-01-03] MEDS: NovoLOG Insulin Flexpen SUBQ SCH ×3 (05:24→18:01)
[2019-01-03 07:33] LABS: BASOPHILS % (AUTO) 1.4 % (0.0-2.0); EOSINOPHILS % (AUTO) 0.1 % (0.0-3.0); HEMATOCRIT 27.2 % (42.0-52.0); HEMOGLOBIN 8.4 G/DL (14.2-18.0); LYMPHOCYTES % (AUTO) 16.4 % (20.0-45.0); MEAN CORPUSCULAR VOLUME 81 FL (80-99); MONOCYTES % (AUTO) 8.5 % (1.0-10.0); NEUTROPHILS % (AUTO) 73.6 % (45.0-75.0); PLATELET COUNT 176 K/UL (150-450); RED BLOOD COUNT 3.34 M/UL (4.70-6.10); RED CELL DISTRIBUTION WIDTH 17.1 % (11.6-14.8); WHITE BLOOD COUNT 7.3 K/UL (4.8-10.8)
[2019-01-03 07:46] LABS: ANION GAP 12 mmol/L (5-15); BLOOD UREA NITROGEN 69 mg/dL (7-18); CALCIUM 8.7 MG/DL (8.5-10.1); CARBON DIOXIDE 29 MMOL/L (21-32); CHLORIDE 93 MMOL/L (98-107); CREATININE 5.1 MG/DL (0.55-1.30); POTASSIUM 4.1 MMOL/L (3.5-5.1); SODIUM 133 MMOL/L (136-145)
[2019-01-03 08:00] VITALS: BP 147/99
[2019-01-03] MEDS: Bacitracin Oint UD TOPIC SCH ×2 (08:41→21:44)
[2019-01-03] MEDS: Eliquis 2.5mg tablet GT SCH ×2 (08:42→18:00)
--- NOTE | 2019-01-03 08:55 | General Progress Note ---
Assessment/Plan Problem List: (1) Transplant ICD Codes: Z94.9 - Transplanted organ and tissue status, unspecified SNOMED: 010841680 (2) HTN (hypertension) ICD Codes: I10 - Essential (primary) hypertension SNOMED: 08345575 (3) Pacemaker ICD Codes: Z95.0 - Presence of cardiac pacemaker SNOMED: 827817554 (4) CHF (congestive heart failure) ICD Codes: I50.9 - Heart failure, unspecified SNOMED: 62545977 (5) DM (diabetes mellitus) ICD Codes: E11.9 - Type 2 diabetes mellitus without complications SNOMED: 14185298 (6) Foot ulcer ICD Codes: L97.509 - Non-pressure chronic ulcer of other part of unspecified foot with unspecified severity SNOMED: 50554636 Qualifiers: Qualified Codes: L97.511 - Non-pressure chronic ulcer of other part of right foot limited to breakdown of skin (7) ESRD (end stage renal disease) on dialysis ICD Codes: N18.6 - End stage renal disease; Z99.2 - Dependence on renal dialysis SNOMED: 116992558 Status: unchanged Assessment/Plan: History of liver transplant, currently on Prograf History of cholecystectomy status post tracheostomy and PEG Infected G-tube site, fu ID recs C. difficile negative would care cx >> GRAM NEGATIVE BACILLUS CT AP reviewed, Moderate to large right pleural effusion. Moderate Ascites. s/p Paracentesis yielding 4.1 yield, r/o SBP restart GTFs GT site care BID/prn topical abx around GT site per ID HD per nephro cont tacrolimus prn transfusions ppi zofran prn Titrate bowel regimen follow labs supportive care Subjective ROS Limited/Unobtainable: No Allergies: Coded Allergies: CEPHALEXIN (Unverified Allergy, Unknown, 02/24/14) SULFAMETHOXAZOLE (Unverified Allergy, Unknown, 02/24/14) TRIMETHOPRIM (Unverified Allergy, Unknown, 02/24/14) Subjective he pulled his NGT again Objective Last 24 Hour Vital Signs Date Time Temp Pulse Resp B/P (MAP) Pulse Ox O2 Delivery O2 Flow Rate FiO2 01/03/19 08:41 73 147/99 01/03/19 08:00 Mechanical Ventilator 01/03/19 08:00 97.3 73 22 147/99 (115) 100 5/19/19 08:00 40 01/03/19 07:10 68 23 40 01/03/19 05:22 117/58 01/03/19 04:55 73 23 40 01/03/19 04:00 Mechanical Ventilator 01/03/19 04:00 40 01/03/19 04:00 97.5 76 24 117/58 (77) 100 01/03/19 03:37 76 01/03/19 02:56 77 24 40 01/03/19 00:16 73 25 40 01/03/19 00:00 Mechanical Ventilator 01/03/19 00:00 97.7 73 20 101/50 (67) 100 01/02/19 23:36 78 01/02/19 22:33 74 23 40 01/02/19 21:15 77 24 40 01/02/19 20:21 76 101/28 01/02/19 20:00 98.1 76 20 101/28 (52) 98 01/02/19 20:00 Mechanical Ventilator 01/02/19 20:00 40 01/02/19 19:25 81 01/02/19 19:20 75 25 40 01/02/19 18:00 92/60 01/02/19 17:26 72 22 40 01/02/19 16:00 98.0 74 20 92/60 (71) 98 01/02/19 16:00 73 01/02/19 16:00 Mechanical Ventilator 01/02/19 16:00 12.0 40 01/02/19 15:20 68 18 40 01/02/19 13:20 72 24 40 01/02/19 12:00 72 01/02/19 12:00 Mechanical Ventilator 01/02/19 12:00 40 01/02/19 11:57 98.0 73 20 96/70 (79) 100 01/02/19 11:56 96/70 01/02/19 10:59 68 22 40 01/02/19 09:20 64 26 40 01/02/19 09:03 79 117/90 Intake and Output 01/02/19 01/03/19 19:00 07:00 Intake Total 210 ml 740 ml Output Total 0 ml Balance 210 ml 740 ml Intake Oral 0 ml Free Water 120 ml 200 ml Tube Feeding 90 ml 540 ml Output Urine Total 0 ml Stool Total 0 ml Laboratory Tests 01/03/19 06:50: White Blood Count 7.3, Red Blood Count 3.34L, Hemoglobin 8.4L, Hematocrit 27.2L , Mean Corpuscular Volume 81, Mean Corpuscular Hemoglobin 25.2L, Mean Corpuscular Hemoglobin Concent 31.0L, Red Cell Distribution Width 17.1H, Platelet Count 176, Mean Platelet Volume 6.5, Neutrophils (%) (Auto) 73.6, Lymphocytes (%) (Auto) 16.4L, Monocytes (%) (Auto) 8.5, Eosinophils (%) (Auto) 0.1, Basophils (%) (Auto) 1.4, Sodium Level 133L, Potassium Level 4.1, Chloride Level 93L, Carbon Dioxide Level 29, Anion Gap 12, Blood Urea Nitrogen 69H, Creatinine 5.1H, Estimat Glomerular Filtration Rate 11.4, Glucose Level 141H, Calcium Level 8.7 Height (Feet): 5 Height (Inches): 4.00 Weight (Pounds): 230 General Appearance: no apparent distress EENT: normal ENT inspection Neck: supple Cardiovascular: normal rate Respiratory/Chest: decreased breath sounds Abdomen: normal bowel sounds, non tender, soft Extremities: non-tender Jorge Escalera MD January 03, 2019 08:55
--- NOTE | 2019-01-03 11:43 | General Progress Note ---
Assessment/Plan Status: unchanged Assessment/Plan: Assessment/Plan Status: unchanged Assessment/Plan: #Right heel diabetic foot ulcer without osteomyelitis #PAD #Right IJ DVT -seen by Podiatry and ID -s/p Vanco x 2 weeks during HD -s/p selective RLE angio with SFA/pop stenting 12/22/18 Dr. Salmeron with whom I discussed the case on 01/02 and R LE US ordered to rule out DVT -resumed Eliquis -Vascular Surgery and Hematology following - Hb 8.5 #Acute Resp hypercapnic failure s/p tracheostomy #Angioedema #Large right pleural effusion # R side trapped lung -continue trach care -Remains vent-dependant, breathing trials ongoing -Right thoracentesis 01/01/19 with 2.3 lt removed. Post procedure CXR with R trapped lung. -Pulm following, will need to discuss next steps for weaning trials. #End-stage renal disease, on dialysis M-W-F #RUE edema #Anasarca, ascites, scrotal edema, pleural effusion due to hypoalbuminemia -HD with UF per Nephrology - Per discussion with Dr. Salmeron from vascular surgery ordered R leg doppler US. #Coronary artery disease -continue ASA, Coreg, atorvastatin -cardiology following #Type 2 DM -ISS #Acute metabolic encephalopathy -continue supportive care -Neurology following - Improved and baseline mentation now. #history of chronic HCV infection #history of liver transplant -continue Prograf -GI following #Abdominal distension and ascites -no nausea, vomiting or tenderness -continue supportive care -GI following -s/p paracentesis 12/31/18 4.1 lt #Dysphagia S/p PEG with PEG site cellulitis -s/p antibiotics per ID and GI -continue local wound care - tolerating tube feeds # FULL CODE Subjective Constitutional: Reports: malaise, weakness Genitourinary: Reports: other - testicular swelling Allergies: Coded Allergies: CEPHALEXIN (Unverified Allergy, Unknown, 02/24/14) SULFAMETHOXAZOLE (Unverified Allergy, Unknown, 02/24/14) TRIMETHOPRIM (Unverified Allergy, Unknown, 02/24/14) All Systems: reviewed and negative except above Subjective patient is s/p tracheostomy and PEG. 01/01 thoracentesis L side 2.3 lt 12/31 paracenthesis 4.1 lt 12/30 last weaning trial Objective Last 24 Hour Vital Signs Date Time Temp Pulse Resp B/P (MAP) Pulse Ox O2 Delivery O2 Flow Rate FiO2 01/03/19 11:01 64 28 40 01/03/19 08:56 68 25 40 01/03/19 08:41 73 147/99 01/03/19 08:00 Mechanical Ventilator 01/03/19 08:00 71 01/03/19 08:00 97.3 73 22 147/99 (115) 100 01/03/19 08:00 40 01/03/19 07:10 68 23 40 01/03/19 05:22 117/58 01/03/19 04:55 73 23 40 01/03/19 04:00 Mechanical Ventilator 01/03/19 04:00 40 01/03/19 04:00 97.5 76 24 117/58 (77) 100 01/03/19 03:37 76 01/03/19 02:56 77 24 40 01/03/19 00:16 73 25 40 01/03/19 00:00 Mechanical Ventilator 01/03/19 00:00 97.7 73 20 101/50 (67) 100 01/02/19 23:36 78 01/02/19 22:33 74 23 40 01/02/19 21:15 77 24 40 01/02/19 20:21 76 101/28 01/02/19 20:00 98.1 76 20 101/28 (52) 98 01/02/19 20:00 Mechanical Ventilator 01/02/19 20:00 40 01/02/19 19:25 81 01/02/19 19:20 75 25 40 01/02/19 18:00 92/60 01/02/19 17:26 72 22 40 01/02/19 16:00 98.0 74 20 92/60 (71) 98 01/02/19 16:00 73 01/02/19 16:00 Mechanical Ventilator 01/02/19 16:00 12.0 40 01/02/19 15:20 68 18 40 01/02/19 13:20 72 24 40 01/02/19 12:00 72 01/02/19 12:00 Mechanical Ventilator 01/02/19 12:00 40 01/02/19 11:57 98.0 73 20 96/70 (79) 100 01/02/19 11:56 96/70 Intake and Output 01/02/19 01/03/19 19:00 07:00 Intake Total 210 ml 740 ml Output Total 0 ml Balance 210 ml 740 ml Intake Oral 0 ml Free Water 120 ml 200 ml Tube Feeding 90 ml 540 ml Output Urine Total 0 ml Stool Total 0 ml Laboratory Tests 01/03/19 06:50: White Blood Count 7.3, Red Blood Count 3.34L, Hemoglobin 8.4L, Hematocrit 27.2L , Mean Corpuscular Volume 81, Mean Corpuscular Hemoglobin 25.2L, Mean Corpuscular Hemoglobin Concent 31.0L, Red Cell Distribution Width 17.1H, Platelet Count 176, Mean Platelet Volume 6.5, Neutrophils (%) (Auto) 73.6, Lymphocytes (%) (Auto) 16.4L, Monocytes (%) (Auto) 8.5, Eosinophils (%) (Auto) 0.1, Basophils (%) (Auto) 1.4, Sodium Level 133L, Potassium Level 4.1, Chloride Level 93L, Carbon Dioxide Level 29, Anion Gap 12, Blood Urea Nitrogen 69H, Creatinine 5.1H, Estimat Glomerular Filtration Rate 11.4, Glucose Level 141H, Calcium Level 8.7 Height (Feet): 5 Height (Inches): 4.00 Weight (Pounds): 230 General Appearance: WD/WN, no apparent distress Neck: non-tender Cardiovascular: normal rate Respiratory/Chest: decreased breath sounds, other - tracheostomy Edema: other - testicular swelling Neurologic: desilverizer 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 normal Skin: normal pigmentation Sukhdeep Galvan MD January 03, 2019 11:43
[2019-01-03 12:00] VITALS: BP 159/72
--- NOTE | 2019-01-03 12:49 | Nephrology Progress Note ---
Assessment/Plan Problem List: (1) ESRD (end stage renal disease) on dialysis (2) Foot ulcer (3) CHF (congestive heart failure) Assessment: Ej Fx 20 % (4) Pacemaker (5) Acute respiratory failure Assessment: with Co2 retention (6) G-tube site cellulitis Assessment ESRD with high K and SOB on admit Foot ulcer, likely infected High Troponin likely NSTMI Pacer , Pleural effusion s/p CABGS s/p Liver transplant Plan dialysis 01/01 next 01/04 labs before HD noted BP low- improved on midodrine per consultants, GI GT site infection, topical antibiotic Neuro note appreciated placement in process vascular esteban regarding heel ulcer per Dr Mcgill pain med change to dilaudid GT Now has tracheostomy and PEG Adjust BP meds add nitro paste TID Antibiotics by ID per cardio and ID Podiatry and Vascular surgical fu ? DC planning? Subjective ROS Limited/Unobtainable: No Objective Objective Last 24 Hour Vital Signs Date Time Temp Pulse Resp B/P (MAP) Pulse Ox O2 Delivery O2 Flow Rate FiO2 01/03/19 12:00 97.3 74 24 159/72 (101) 100 01/03/19 12:00 159/72 01/03/19 12:00 Mechanical Ventilator 01/03/19 12:00 40 01/03/19 11:01 64 28 40 01/03/19 08:56 68 25 40 01/03/19 08:41 73 147/99 01/03/19 08:00 Mechanical Ventilator 01/03/19 08:00 71 01/03/19 08:00 97.3 73 22 147/99 (115) 100 01/03/19 08:00 40 01/03/19 07:10 68 23 40 01/03/19 05:22 117/58 01/03/19 04:55 73 23 40 01/03/19 04:00 Mechanical Ventilator 01/03/19 04:00 40 01/03/19 04:00 97.5 76 24 117/58 (77) 100 01/03/19 03:37 76 01/03/19 02:56 77 24 40 01/03/19 00:16 73 25 40 01/03/19 00:00 Mechanical Ventilator 01/03/19 00:00 97.7 73 20 101/50 (67) 100 01/02/19 23:36 78 01/02/19 22:33 74 23 40 5/18/19 21:15 77 24 40 01/02/19 20:21 76 101/28 01/02/19 20:00 98.1 76 20 101/28 (52) 98 01/02/19 20:00 Mechanical Ventilator 01/02/19 20:00 40 01/02/19 19:25 81 01/02/19 19:20 75 25 40 01/02/19 18:00 92/60 01/02/19 17:26 72 22 40 01/02/19 16:00 98.0 74 20 92/60 (71) 98 01/02/19 16:00 73 01/02/19 16:00 Mechanical Ventilator 01/02/19 16:00 12.0 40 01/02/19 15:20 68 18 40 01/02/19 13:20 72 24 40 Intake and Output 01/02/19 01/03/19 19:00 07:00 Intake Total 210 ml 740 ml Output Total 0 ml Balance 210 ml 740 ml Intake Oral 0 ml Free Water 120 ml 200 ml Tube Feeding 90 ml 540 ml Output Urine Total 0 ml Stool Total 0 ml Laboratory Tests 01/03/19 06:50: White Blood Count 7.3, Red Blood Count 3.34L, Hemoglobin 8.4L, Hematocrit 27.2L , Mean Corpuscular Volume 81, Mean Corpuscular Hemoglobin 25.2L, Mean Corpuscular Hemoglobin Concent 31.0L, Red Cell Distribution Width 17.1H, Platelet Count 176, Mean Platelet Volume 6.5, Neutrophils (%) (Auto) 73.6, Lymphocytes (%) (Auto) 16.4L, Monocytes (%) (Auto) 8.5, Eosinophils (%) (Auto) 0.1, Basophils (%) (Auto) 1.4, Sodium Level 133L, Potassium Level 4.1, Chloride Level 93L, Carbon Dioxide Level 29, Anion Gap 12, Blood Urea Nitrogen 69H, Creatinine 5.1H, Estimat Glomerular Filtration Rate 11.4, Glucose Level 141H, Calcium Level 8.7 Height (Feet): 5 Height (Inches): 4.00 Weight (Pounds): 230 General Appearance: no apparent distress EENT: other - trach Cardiovascular: normal rate Respiratory/Chest: decreased breath sounds Abdomen: distended, other - PEg Objective no other change Nakul Stevens MD January 03, 2019 12:49
--- NOTE | 2019-01-03 17:09 | Infectious Diseases Prog Note ---
Assessment/Plan Problems: (1) Foot ulcer Assessment & Plan: with MRSA grew out of it in the past, S/P vancomycin treatment with HD for two weeks, had vascular eval with revascularization to the right leg , S/P ulcer resection by esthetician/owner . deep ulcer culture grew MRSA and E.coli with diphtheroids , possible colonization , with no evidence of active infection as per discussion with podiatry , no need to be started on antibiotics for now , will continue to monitor clinically and make recommendations as necessary . bone scan ruled out osteomyelitis of the heel before, couldn't do an MRI since on the vent . continue local wound care as per esthetician/owner . (2) G-tube site cellulitis Assessment & Plan: improved, still with mild erythema and tube feeding draining , culture from the G tube site previously grew pseudomonas , S/P ciprofloxacin for 7 days , continue local care as per GI. keep area clean and dry . may need tube change if continue to leak the feeding tube materials (3) Thrush, oral Assessment & Plan: continue local nystatin as needed , S/P micafungin for three weeks empirically (4) HCV antibody positive Assessment & Plan: no evidence of active infection, with undetectable viral load , suspect due to previous infection , cleared, S/P liver transplant . (5) DM (diabetes mellitus) Assessment & Plan: recommend tight glycemic control to keep blood glucose between 100-140 (6) CHF (congestive heart failure) Assessment & Plan: on HD , renal is following, monitor daily weight (7) Severe tongue swelling Assessment & Plan: improving , s/p tracheostomy to protect his airway since respiratory status worsened . now improving, pulmonary is following (8) Pleural effusion Assessment & Plan: recurrent on the right, with lung collapse , S/P thoracentesis X 3 now with removal of 2.3 liters of clear fluids on 12/31/18 . await fluids culture and gram stain, with PH and Glucose level . PREVIOUS culture were negative with negative cytology. pulmonary is following (9) Ascites Assessment & Plan: S/P paracentesis with removal of 4.1 liters of fluids, culture so far is negative Assessment/Plan will continue to monitor patient on daily basis and make recommendations as necessary since he is high risk for recurrent infection Subjective Constitutional: Reports: no symptoms HEENT: Reports: no symptoms Respiratory: Reports: no symptoms Breasts: Reports: no symptoms Cardiovascular: Reports: no symptoms Gastrointestinal/Abdominal: Reports: no symptoms Genitourinary: Reports: no symptoms Neurologic: Reports: no symptoms Psychiatric: Reports: no symptoms Skin: Reports: no symptoms Endocrine: Reports: no symptoms Hematologic: Reports: no symptoms Musculoskeletal: Reports: no symptoms Allergies: Coded Allergies: CEPHALEXIN (Unverified Allergy, Unknown, 02/24/14) SULFAMETHOXAZOLE (Unverified Allergy, Unknown, 02/24/14) TRIMETHOPRIM (Unverified Allergy, Unknown, 02/24/14) Subjective he was comfortable, lying in bed, denied any fever or chills, no significant secretions, no SOB . has heel pain at the surgery site with wound VAC in place , but no draining coming out Objective Vital Signs Last 24 Hour Vital Signs Date Time Temp Pulse Resp B/P (MAP) Pulse Ox O2 Delivery O2 Flow Rate FiO2 01/03/19 16:00 40 01/03/19 16:00 Mechanical Ventilator 01/03/19 16:00 75 01/03/19 15:25 68 24 40 01/03/19 13:17 72 24 40 01/03/19 12:00 74 01/03/19 12:00 97.3 74 24 159/72 (101) 100 01/03/19 12:00 159/72 01/03/19 12:00 Mechanical Ventilator 01/03/19 12:00 40 01/03/19 11:01 64 28 40 01/03/19 08:56 68 25 40 01/03/19 08:41 73 147/99 01/03/19 08:00 Mechanical Ventilator 01/03/19 08:00 71 01/03/19 08:00 97.3 73 22 147/99 (115) 100 01/03/19 08:00 40 01/03/19 07:10 68 23 40 01/03/19 05:22 117/58 01/03/19 04:55 73 23 40 01/03/19 04:00 Mechanical Ventilator 01/03/19 04:00 40 01/03/19 04:00 97.5 76 24 117/58 (77) 100 01/03/19 03:37 76 01/03/19 02:56 77 24 40 01/03/19 00:16 73 25 40 01/03/19 00:00 Mechanical Ventilator 01/03/19 00:00 97.7 73 20 101/50 (67) 100 01/02/19 23:36 78 01/02/19 22:33 74 23 40 01/02/19 21:15 77 24 40 01/02/19 20:21 76 101/28 01/02/19 20:00 98.1 76 20 101/28 (52) 98 01/02/19 20:00 Mechanical Ventilator 01/02/19 20:00 40 01/02/19 19:25 81 01/02/19 19:20 75 25 40 01/02/19 18:00 92/60 01/02/19 17:26 72 22 40 Height (Feet): 5 Height (Inches): 4.00 Weight (Pounds): 230 General Appearance: WD/WN, no acute distress HEENT: normocephalic, atraumatic, anicteric, mucous membranes moist, PERRL, EOMI, pharynx normal, supple, no JVD Respiratory/Chest: chest wall non-tender, no respiratory distress, no accessory muscle use, decreased breath sounds, crackles/rales Cardiovascular: normal peripheral pulses, normal rate, regular rhythm, no gallop/murmur, no JVD Abdomen: normal bowel sounds, soft, non tender, no organomegaly, non distended , no mass, no scars Genitourinary: normal external genitalia Extremities: no cyanosis, no clubbing Skin: no rash, no lesions, ulcers 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: 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 normal, alert, responsive Lymphatic: no neck adenopathy, no groin adenopathy Musculoskeletal: normal muscle bulk, no effusion Microbiology Date/Time Source Procedure Growth Status 01/01/19 15:30 Pleural Fluid Gram Stain - Final Resulted 01/01/19 15:30 Pleural Fluid Body Fluid Culture - Preliminary NO GROWTH AFTER 48 HOURS Resulted Laboratory Tests Test 01/03/19 06:50 White Blood Count 7.3 K/UL (4.8-10.8) Red Blood Count 3.34 M/UL (4.70-6.10) L Hemoglobin 8.4 G/DL (14.2-18.0) L Hematocrit 27.2 % (42.0-52.0) L Mean Corpuscular Volume 81 FL (80-99) Mean Corpuscular Hemoglobin 25.2 PG (27.0-31.0) L Mean Corpuscular Hemoglobin Concent 31.0 G/DL (32.0-36.0) L Red Cell Distribution Width 17.1 % (11.6-14.8) H Platelet Count 176 K/UL (150-450) Mean Platelet Volume 6.5 FL (6.5-10.1) Neutrophils (%) (Auto) 73.6 % (45.0-75.0) Lymphocytes (%) (Auto) 16.4 % (20.0-45.0) L Monocytes (%) (Auto) 8.5 % (1.0-10.0) Eosinophils (%) (Auto) 0.1 % (0.0-3.0) Basophils (%) (Auto) 1.4 % (0.0-2.0) Sodium Level 133 MMOL/L (136-145) L Potassium Level 4.1 MMOL/L (3.5-5.1) Chloride Level 93 MMOL/L (98-107) L Carbon Dioxide Level 29 MMOL/L (21-32) Anion Gap 12 mmol/L (5-15) Blood Urea Nitrogen 69 mg/dL (7-18) H Creatinine 5.1 MG/DL (0.55-1.30) H Estimat Glomerular Filtration Rate 11.4 mL/min (>60) Glucose Level 141 MG/DL (74-106) H Calcium Level 8.7 MG/DL (8.5-10.1) Current Medications Medications (Trade) Dose Ordered Sig/Aleks Route PRN Reason Start Time Stop Time Status Last Admin Dose Admin Acetaminophen (Tylenol) 650 mg Q6H PRN GT Mild Pain/Temp > 100.5 12/21/18 16:00 01/20/19 15:59 01/01/19 23:38 Acetaminophen/ Hydrocodone Bitart ([place] 5/325) 1 tab Q4H PRN GT Moderate Pain (Pain Scale 4-6) 12/29/18 11:15 01/05/19 11:14 01/03/19 04:13 Apixaban (Eliquis) 2.5 mg BID GT 01/01/19 21:00 01/31/19 20:59 01/03/19 08:42 Bacitracin (Bacitracin) 1 applic EVERY 12 HOURS TOPIC 12/11/18 21:00 01/06/19 17:59 01/03/19 08:41 Carvedilol (Coreg) 3.125 mg EVERY 12 HOURS GT 12/21/18 21:00 01/03/19 20:59 01/03/19 08:41 Clotrimazole (Lotrimin) 1 applic BID TOPIC 12/07/18 18:00 01/06/19 17:59 01/03/19 08:42 Collagenase (Santyl) 1 applic DAILY TOPIC 12/29/18 09:00 01/28/19 08:59 01/03/19 08:42 Dextrose (Dextrose 50%) 25 ml Q30M PRN IV Hypoglycemia 12/31/18 23:00 01/30/19 22:59 Dextrose (Dextrose 50%) 50 ml Q30M PRN IV Hypoglycemia 12/31/18 23:00 01/30/19 22:59 Escitalopram Oxalate (Lexapro) 10 mg DAILY GT 12/18/18 09:00 01/17/19 08:59 01/03/19 08:41 Insulin Aspart (NovoLOG) EVERY 6 HOURS SUBQ 01/01/19 00:00 01/31/19 00:00 01/03/19 12:21 Metoclopramide HCl (Reglan) 5 mg Q6H PRN IVP Nausea & Vomiting 12/30/18 17:30 01/29/19 17:29 12/31/18 04:49 Midodrine (Pro-Amatine) 5 mg BID ORAL 12/31/18 18:00 01/30/19 17:59 01/02/19 18:24 Mirtazapine (Remeron) 15 mg BEDTIME GT 12/21/18 21:00 01/20/19 20:59 01/02/19 20:35 Nitroglycerin (Nitro-Bid) 1 inch TID@0600,1200,1800 TOPIC 12/07/18 12:00 01/06/19 11:59 12/29/18 17:58 Tacrolimus (Prograf) 2 mg MoWeFr@0000,1200 ORAL 12/28/18 00:00 01/27/19 00:00 01/01/19 12:52 Tacrolimus (Prograf) 2 mg SuTuThSa@0900,2100 ORAL 12/26/18 21:00 01/25/19 20:59 01/03/19 08:41 Francois Landis M.D. January 03, 2019 17:09
[2019-01-03 17:49] VITALS: BP 149/98
[2019-01-03 20:00] VITALS: BP 92/38
[2019-01-04] VITALS: BP 124/76
[2019-01-04] MEDS: NovoLOG Insulin Flexpen SUBQ SCH ×5 (00:16→23:18)
[2019-01-04 04:00] VITALS: BP 121/62
[2019-01-04 05:19] LABS: BASOPHILS % (AUTO) 0.6 % (0.0-2.0); HEMATOCRIT 26.4 % (42.0-52.0); HEMOGLOBIN 8.4 G/DL (14.2-18.0); LYMPHOCYTES % (AUTO) 15.2 % (20.0-45.0); MEAN CORPUSCULAR VOLUME 80 FL (80-99); NEUTROPHILS % (AUTO) 76.2 % (45.0-75.0); PLATELET COUNT 199 K/UL (150-450); RED BLOOD COUNT 3.31 M/UL (4.70-6.10); RED CELL DISTRIBUTION WIDTH 16.9 % (11.6-14.8); WHITE BLOOD COUNT 7.4 K/UL (4.8-10.8)
[2019-01-04 05:36] LABS: ALANINE AMINOTRANSFERASE 7 U/L (12-78); ALBUMIN 1.8 G/DL (3.4-5.0); ALBUMIN/GLOBULIN RATIO 0.4 (1.0-2.7); ALKALINE PHOSPHATASE 117 U/L (46-116); ANION GAP 7 mmol/L (5-15); ASPARTATE AMINO TRANSFERASE 13 U/L (15-37); BILIRUBIN,TOTAL 0.3 MG/DL (0.2-1.0); BLOOD UREA NITROGEN 91 mg/dL (7-18); CALCIUM 8.9 MG/DL (8.5-10.1); CARBON DIOXIDE 31 MMOL/L (21-32); CHLORIDE 92 MMOL/L (98-107); CREATININE 6.2 MG/DL (0.55-1.30); POTASSIUM 4.4 MMOL/L (3.5-5.1); SODIUM 130 MMOL/L (136-145)
[2019-01-04] MEDS: Nitroglycerin 2% oint pkt TOPIC SCH ×3 (05:52→18:00)
[2019-01-04 08:00] VITALS: BP 138/89
[2019-01-04] MEDS: Eliquis 2.5mg tablet GT SCH ×2 (09:24→18:12)
[2019-01-04] MEDS: Bacitracin Oint UD TOPIC SCH ×2 (09:24→20:19)
--- NOTE | 2019-01-04 11:13 | GI Progress Note ---
Assessment/Plan Problems: (1) Foot ulcer ICD Codes: L97.509 - Non-pressure chronic ulcer of other part of unspecified foot with unspecified severity SNOMED: 17160055 Qualifiers: Qualified Codes: L97.511 - Non-pressure chronic ulcer of other part of right foot limited to breakdown of skin (2) DM (diabetes mellitus) ICD Codes: E11.9 - Type 2 diabetes mellitus without complications SNOMED: 43699720 (3) Transplant ICD Codes: Z94.9 - Transplanted organ and tissue status, unspecified SNOMED: 045310409 Status: stable Status Narrative Discussed with Dr. Escalera. Assessment/Plan History of liver transplant, currently on Prograf History of cholecystectomy status post tracheostomy and PEG Infected G-tube site, fu ID recs C. difficile negative would care cx >> GRAM NEGATIVE BACILLUS CT AP reviewed, Moderate to large right pleural effusion. Moderate Ascites. s/p Paracentesis yielding 4.1 yield, r/o SBP restart GTFs GT site care BID/prn topical abx around GT site per ID HD per nephro cont tacrolimus prn transfusions ppi zofran prn Titrate bowel regimen follow labs supportive care The patient was seen and examined at bedside and all new and available data was reviewed in the patients chart. I agree with the above findings, impression and plan. (Patient seen earlier today. Signature stamp does not reflect patient encounter time.). - Jorge Escalera MD Subjective Subjective Limited abdominal distention and discomfort improved Scrotal swelling and pain Objective Last 24 Hour Vital Signs Date Time Temp Pulse Resp B/P (MAP) Pulse Ox O2 Delivery O2 Flow Rate FiO2 01/04/19 10:57 70 25 40 01/04/19 08:43 66 24 40 01/04/19 08:00 Mechanical Ventilator 01/04/19 08:00 40 01/04/19 08:00 97.7 74 25 138/89 (105) 100 01/04/19 07:29 75 01/04/19 07:06 64 26 40 01/04/19 04:49 75 25 40 01/04/19 04:00 Mechanical Ventilator 01/04/19 04:00 83 01/04/19 04:00 97.8 79 24 121/62 (81) 100 01/04/19 04:00 40 01/04/19 02:59 72 25 40 01/04/19 01:05 68 26 40 01/04/19 00:00 40 01/04/19 00:00 79 01/04/19 00:00 98.4 79 26 124/76 (92) 100 01/04/19 00:00 Mechanical Ventilator 01/03/19 23:05 67 25 40 01/03/19 20:51 77 25 40 01/03/19 20:00 98.6 78 26 92/38 (56) 100 01/03/19 20:00 82 01/03/19 20:00 40 01/03/19 20:00 Mechanical Ventilator 01/03/19 19:15 70 24 40 01/03/19 18:00 149/98 01/03/19 17:49 97.9 74 25 149/98 (115) 100 01/03/19 17:24 69 28 40 01/03/19 16:00 40 01/03/19 16:00 Mechanical Ventilator 01/03/19 16:00 75 01/03/19 15:25 68 24 40 01/03/19 13:17 72 24 40 01/03/19 12:00 74 01/03/19 12:00 97.3 74 24 159/72 (101) 100 01/03/19 12:00 159/72 01/03/19 12:00 Mechanical Ventilator 01/03/19 12:00 40 Intake and Output 01/03/19 01/04/19 19:00 07:00 Intake Total 840 ml 740 ml Balance 840 ml 740 ml Free Water 300 ml 200 ml Tube Feeding 540 ml 540 ml Laboratory Tests Test 01/04/19 04:35 White Blood Count 7.4 K/UL (4.8-10.8) Red Blood Count 3.31 M/UL (4.70-6.10) L Hemoglobin 8.4 G/DL (14.2-18.0) L Hematocrit 26.4 % (42.0-52.0) L Mean Corpuscular Volume 80 FL (80-99) Mean Corpuscular Hemoglobin 25.3 PG (27.0-31.0) L Mean Corpuscular Hemoglobin Concent 31.6 G/DL (32.0-36.0) L Red Cell Distribution Width 16.9 % (11.6-14.8) H Platelet Count 199 K/UL (150-450) Mean Platelet Volume 6.8 FL (6.5-10.1) Neutrophils (%) (Auto) 76.2 % (45.0-75.0) H Lymphocytes (%) (Auto) 15.2 % (20.0-45.0) L Monocytes (%) (Auto) 8.0 % (1.0-10.0) Eosinophils (%) (Auto) 0.0 % (0.0-3.0) Basophils (%) (Auto) 0.6 % (0.0-2.0) Sodium Level 130 MMOL/L (136-145) L Potassium Level 4.4 MMOL/L (3.5-5.1) Chloride Level 92 MMOL/L (98-107) L Carbon Dioxide Level 31 MMOL/L (21-32) Anion Gap 7 mmol/L (5-15) Blood Urea Nitrogen 91 mg/dL (7-18) H Creatinine 6.2 MG/DL (0.55-1.30) H Estimat Glomerular Filtration Rate 9.1 mL/min (>60) Glucose Level 157 MG/DL (74-106) H Calcium Level 8.9 MG/DL (8.5-10.1) Total Bilirubin 0.3 MG/DL (0.2-1.0) Aspartate Amino Transf (AST/SGOT) 13 U/L (15-37) L Alanine Aminotransferase (ALT/SGPT) 7 U/L (12-78) L Alkaline Phosphatase 117 U/L (46-116) H Total Protein 6.0 G/DL (6.4-8.2) L Albumin 1.8 G/DL (3.4-5.0) L Globulin 4.2 g/dL Albumin/Globulin Ratio 0.4 (1.0-2.7) L Height (Feet): 5 Height (Inches): 4.00 Weight (Pounds): 233 General Appearance: WD/WN, no apparent distress, alert Cardiovascular: normal rate Respiratory/Chest: normal breath sounds, no respiratory distress Abdominal Exam: normal bowel sounds, non tender, soft Extremities: non-tender Objective Scrotal swelling Right upper extremity swelling Kelvin Briggs NP January 04, 2019 11:13
--- NOTE | 2019-01-04 11:49 | Cardiac Electrophysiology PN ---
Assessment/Plan Assessment/Plan 1. Troponin leak due to renal failure. No CP or SOB 2. CAD. S/P CABG. On Coreg , aspirin and Lipitor 3. NSVT in setting of old FL and CABG. EF 55%. Continue Coreg 4. CHF and right pleural effusion. On hemodialysis. S/P Thoracentesis 5. S/P Right sided Med[employer]onic dual chamber pacemaker with Nl Fx. 6. End-stage renal disease, on hemodialysis per Dr. Stevens S/P Fistulogram by Dr. Salmeron 7. Multilevel AOD LE's with non-healing Right foot ulcer. Had abdominal angiogram per Dr Salmeron Antibiotic per Dr. Landis. FU by Dr. Huizar S/P peripheral intervention by Dr. Salmeron 12/22/18 Right foot on Wound-Vac 8. History of liver transplant on Prograf 9. Respiratory failure, S/P tracheostomy. 10. Pleural effusion. s/p 2300 cc thoracentesis 01/01/[address] Mendoza 11. Dysphagia, S/P PEG 12. Low BP. On Midodrine 5 bid Subjective Subjective Comfortable in NAD. Getting RLE Duplex. Had thoracentesis after HD 01/01/19 Objective Last 24 Hour Vital Signs Date Time Temp Pulse Resp B/P (MAP) Pulse Ox O2 Delivery O2 Flow Rate FiO2 01/04/19 10:57 70 25 40 01/04/19 08:43 66 24 40 01/04/19 08:00 Mechanical Ventilator 01/04/19 08:00 40 01/04/19 08:00 97.7 74 25 138/89 (105) 100 01/04/19 07:29 75 01/04/19 07:06 64 26 40 01/04/19 04:49 75 25 40 01/04/19 04:00 Mechanical Ventilator 01/04/19 04:00 83 01/04/19 04:00 97.8 79 24 121/62 (81) 100 01/04/19 04:00 40 01/04/19 02:59 72 25 40 01/04/19 01:05 68 26 40 01/04/19 00:00 40 01/04/19 00:00 79 01/04/19 00:00 98.4 79 26 124/76 (92) 100 01/04/19 00:00 Mechanical Ventilator 01/03/19 23:05 67 25 40 01/03/19 20:51 77 25 40 01/03/19 20:00 98.6 78 26 92/38 (56) 100 01/03/19 20:00 82 01/03/19 20:00 40 01/03/19 20:00 Mechanical Ventilator 01/03/19 19:15 70 24 40 01/03/19 18:00 149/98 01/03/19 17:49 97.9 74 25 149/98 (115) 100 01/03/19 17:24 69 28 40 01/03/19 16:00 40 01/03/19 16:00 Mechanical Ventilator 01/03/19 16:00 75 01/03/19 15:25 68 24 40 01/03/19 13:17 72 24 40 01/03/19 12:00 74 01/03/19 12:00 97.3 74 24 159/72 (101) 100 01/03/19 12:00 159/72 01/03/19 12:00 Mechanical Ventilator 01/03/19 12:00 40 Intake and Output 01/03/19 01/04/19 19:00 07:00 Intake Total 840 ml 740 ml Balance 840 ml 740 ml Free Water 300 ml 200 ml Tube Feeding 540 ml 540 ml Laboratory Tests Test 01/04/19 04:35 White Blood Count 7.4 K/UL (4.8-10.8) Red Blood Count 3.31 M/UL (4.70-6.10) L Hemoglobin 8.4 G/DL (14.2-18.0) L Hematocrit 26.4 % (42.0-52.0) L Mean Corpuscular Volume 80 FL (80-99) Mean Corpuscular Hemoglobin 25.3 PG (27.0-31.0) L Mean Corpuscular Hemoglobin Concent 31.6 G/DL (32.0-36.0) L Red Cell Distribution Width 16.9 % (11.6-14.8) H Platelet Count 199 K/UL (150-450) Mean Platelet Volume 6.8 FL (6.5-10.1) Neutrophils (%) (Auto) 76.2 % (45.0-75.0) H Lymphocytes (%) (Auto) 15.2 % (20.0-45.0) L Monocytes (%) (Auto) 8.0 % (1.0-10.0) Eosinophils (%) (Auto) 0.0 % (0.0-3.0) Basophils (%) (Auto) 0.6 % (0.0-2.0) Sodium Level 130 MMOL/L (136-145) L Potassium Level 4.4 MMOL/L (3.5-5.1) Chloride Level 92 MMOL/L (98-107) L Carbon Dioxide Level 31 MMOL/L (21-32) Anion Gap 7 mmol/L (5-15) Blood Urea Nitrogen 91 mg/dL (7-18) H Creatinine 6.2 MG/DL (0.55-1.30) H Estimat Glomerular Filtration Rate 9.1 mL/min (>60) Glucose Level 157 MG/DL (74-106) H Calcium Level 8.9 MG/DL (8.5-10.1) Total Bilirubin 0.3 MG/DL (0.2-1.0) Aspartate Amino Transf (AST/SGOT) 13 U/L (15-37) L Alanine Aminotransferase (ALT/SGPT) 7 U/L (12-78) L Alkaline Phosphatase 117 U/L (46-116) H Total Protein 6.0 G/DL (6.4-8.2) L Albumin 1.8 G/DL (3.4-5.0) L Globulin 4.2 g/dL Albumin/Globulin Ratio 0.4 (1.0-2.7) L Microbiology Date/Time Source Procedure Growth Status 01/01/19 15:30 Pleural Fluid Gram Stain - Final Resulted 01/01/19 15:30 Pleural Fluid Body Fluid Culture - Preliminary NO GROWTH AFTER 72 HOURS Resulted Objective HEAD AND NECK: No JVD. Tracheostomy intact LUNGS: Clear CARDIOVASCULAR: Irregular S1 and S2 with no gallop. Sternotomy is intact Pacemaker in the right subclavian ABDOMEN: Soft.PEG in place EXTREMITIES: 1+ pitting edema. Right heel in dressing and connected to WoundVac Shivam Sharpe MD January 04, 2019 11:49
--- NOTE | 2019-01-04 11:53 | General Progress Note ---
Assessment/Plan Status: stable Assessment/Plan: #Right heel diabetic foot ulcer without osteomyelitis #PAD #Right IJ DVT -seen by Podiatry and ID -s/p Vanco x 2 weeks during HD -continue Eliquis -Vascular Surgery and Hematology following #Acute Resp hypercapnic failure s/p tracheostomy #Angioedema #Large right pleural effusion # R side trapped lung -continue trach care -Remains vent-dependant, breathing trials ongoing -Right thoracentesis 01/01/19 with 2.3 lt removed. Post procedure CXR with R trapped lung. -Pulm following #End-stage renal disease, on dialysis M-W- #RUE edema #Anasarca, ascites, scrotal edema, pleural effusion due to hypoalbuminemia -HD with UF per Nephrology #Coronary artery disease -continue ASA, Coreg, atorvastatin -cardiology following #Type 2 DM -ISS #Acute metabolic encephalopathy -continue supportive care -Neurology following #history of chronic HCV infection #history of liver transplant -continue Prograf -GI following #Abdominal distension and ascites -no nausea, vomiting or tenderness -continue supportive care -GI following -s/p paracentesis 12/31/18 4.1 lt #Dysphagia S/p PEG with PEG site cellulitis -s/p antibiotics per ID and GI -continue local wound care -tolerating tube feeds # FULL CODE Subjective Date patient seen: January 04, 2019 Time patient seen: 08:20 ROS Limited/Unobtainable: Yes Cardiovascular: Denies: chest pain Respiratory: Denies: cough Gastrointestinal/Abdominal: Denies: abdominal pain Allergies: Coded Allergies: CEPHALEXIN (Unverified Allergy, Unknown, 02/24/14) SULFAMETHOXAZOLE (Unverified Allergy, Unknown, 02/24/14) TRIMETHOPRIM (Unverified Allergy, Unknown, 02/24/14) Subjective Medicine follow up for acute resp failure, PAD, right heel infected DFU, ESRD, anasarca secondary to hypoalbuminemia, right IJ DVT. S/p 4 liter paracentesis and 2 liter thoracentesis. Patient lost IV access and refused another line. Objective Last 24 Hour Vital Signs Date Time Temp Pulse Resp B/P (MAP) Pulse Ox O2 Delivery O2 Flow Rate FiO2 01/04/19 10:57 70 25 40 01/04/19 08:43 66 24 40 01/04/19 08:00 Mechanical Ventilator 01/04/19 08:00 40 01/04/19 08:00 97.7 74 25 138/89 (105) 100 01/04/19 07:29 75 01/04/19 07:06 64 26 40 01/04/19 04:49 75 25 40 01/04/19 04:00 Mechanical Ventilator 01/04/19 04:00 83 01/04/19 04:00 97.8 79 24 121/62 (81) 100 01/04/19 04:00 40 01/04/19 02:59 72 25 40 01/04/19 01:05 68 26 40 01/04/19 00:00 40 01/04/19 00:00 79 01/04/19 00:00 98.4 79 26 124/76 (92) 100 01/04/19 00:00 Mechanical Ventilator 01/03/19 23:05 67 25 40 01/03/19 20:51 77 25 40 01/03/19 20:00 98.6 78 26 92/38 (56) 100 01/03/19 20:00 82 01/03/19 20:00 40 01/03/19 20:00 Mechanical Ventilator 01/03/19 19:15 70 24 40 01/03/19 18:00 149/98 01/03/19 17:49 97.9 74 25 149/98 (115) 100 01/03/19 17:24 69 28 40 01/03/19 16:00 40 01/03/19 16:00 Mechanical Ventilator 01/03/19 16:00 75 01/03/19 15:25 68 24 40 01/03/19 13:17 72 24 40 01/03/19 12:00 74 01/03/19 12:00 97.3 74 24 159/72 (101) 100 01/03/19 12:00 159/72 01/03/19 12:00 Mechanical Ventilator 01/03/19 12:00 40 Intake and Output 01/03/19 01/04/19 19:00 07:00 Intake Total 840 ml 740 ml Balance 840 ml 740 ml Free Water 300 ml 200 ml Tube Feeding 540 ml 540 ml Laboratory Tests 01/04/19 04:35: White Blood Count 7.4, Red Blood Count 3.31L, Hemoglobin 8.4L, Hematocrit 26.4L , Mean Corpuscular Volume 80, Mean Corpuscular Hemoglobin 25.3L, Mean Corpuscular Hemoglobin Concent 31.6L, Red Cell Distribution Width 16.9H, Platelet Count 199, Mean Platelet Volume 6.8, Neutrophils (%) (Auto) 76.2H, Lymphocytes (%) (Auto) 15.2L, Monocytes (%) (Auto) 8.0, Eosinophils (%) (Auto) 0.0, Basophils (%) (Auto) 0.6, Sodium Level 130L, Potassium Level 4.4, Chloride Level 92L, Carbon Dioxide Level 31, Anion Gap 7, Blood Urea Nitrogen 91H, Creatinine 6.2H, Estimat Glomerular Filtration Rate 9.1, Glucose Level 157H, Calcium Level 8.9, Total Bilirubin 0.3, Aspartate Amino Transf (AST/SGOT) 13L, Alanine Aminotransferase (ALT/SGPT) 7L, Alkaline Phosphatase 117H, Total Protein 6.0L, Albumin 1.8L, Globulin 4.2, Albumin/Globulin Ratio 0.4L Height (Feet): 5 Height (Inches): 4.00 Weight (Pounds): 233 General Appearance: no apparent distress, alert Neck: supple Cardiovascular: normal rate, regular rhythm Respiratory/Chest: lungs clear, normal breath sounds Abdomen: normal bowel sounds, non tender, soft Dennis Branham MD January 04, 2019 11:53
[2019-01-04 12:00] VITALS: BP 138/55
[2019-01-04] MEDS: HYDROcodone/Acetamin 5/325 tab GT PRN (15:04)
--- NOTE | 2019-01-04 15:19 | Nephrology Progress Note ---
Assessment/Plan Problem List: (1) ESRD (end stage renal disease) on dialysis (2) Foot ulcer (3) CHF (congestive heart failure) Assessment: Ej Fx 20 % (4) Pacemaker (5) Acute respiratory failure Assessment: with Co2 retention (6) G-tube site cellulitis Assessment ESRD with high K and SOB on admit Foot ulcer, likely infected High Troponin likely NSTMI Pacer , Pleural effusion s/p CABGS s/p Liver transplant Plan dialysis t 01/04 labs before HD noted BP low- improved on midodrine per consultants, GI GT site infection, topical antibiotic Neuro note appreciated placement in process vascular esteban regarding heel ulcer per Dr Mcgill pain med change to dilaudid GT Now has tracheostomy and PEG Adjust BP meds add nitro paste TID Antibiotics by ID per cardio and ID Podiatry and Vascular surgical fu ? DC planning? Subjective ROS Limited/Unobtainable: No Objective Objective Last 24 Hour Vital Signs Date Time Temp Pulse Resp B/P (MAP) Pulse Ox O2 Delivery O2 Flow Rate FiO2 01/04/19 13:01 68 25 40 01/04/19 12:00 98.4 76 25 138/55 (82) 99 01/04/19 12:00 Mechanical Ventilator 01/04/19 12:00 40 01/04/19 11:34 75 01/04/19 10:57 70 25 40 01/04/19 08:43 66 24 40 01/04/19 08:00 Mechanical Ventilator 01/04/19 08:00 40 01/04/19 08:00 97.7 74 25 138/89 (105) 100 01/04/19 07:29 75 01/04/19 07:06 64 26 40 01/04/19 04:49 75 25 40 01/04/19 04:00 Mechanical Ventilator 01/04/19 04:00 83 01/04/19 04:00 97.8 79 24 121/62 (81) 100 01/04/19 04:00 40 01/04/19 02:59 72 25 40 01/04/19 01:05 68 26 40 01/04/19 00:00 40 01/04/19 00:00 79 01/04/19 00:00 98.4 79 26 124/76 (92) 100 01/04/19 00:00 Mechanical Ventilator 01/03/19 23:05 67 25 40 01/03/19 20:51 77 25 40 01/03/19 20:00 98.6 78 26 92/38 (56) 100 01/03/19 20:00 82 01/03/19 20:00 40 01/03/19 20:00 Mechanical Ventilator 01/03/19 19:15 70 24 40 01/03/19 18:00 149/98 01/03/19 17:49 97.9 74 25 149/98 (115) 100 01/03/19 17:24 69 28 40 01/03/19 16:00 40 01/03/19 16:00 Mechanical Ventilator 01/03/19 16:00 75 01/03/19 15:25 68 24 40 Intake and Output 01/03/19 01/04/19 19:00 07:00 Intake Total 840 ml 740 ml Balance 840 ml 740 ml Free Water 300 ml 200 ml Tube Feeding 540 ml 540 ml Laboratory Tests 01/04/19 04:35: White Blood Count 7.4, Red Blood Count 3.31L, Hemoglobin 8.4L, Hematocrit 26.4L , Mean Corpuscular Volume 80, Mean Corpuscular Hemoglobin 25.3L, Mean Corpuscular Hemoglobin Concent 31.6L, Red Cell Distribution Width 16.9H, Platelet Count 199, Mean Platelet Volume 6.8, Neutrophils (%) (Auto) 76.2H, Lymphocytes (%) (Auto) 15.2L, Monocytes (%) (Auto) 8.0, Eosinophils (%) (Auto) 0.0, Basophils (%) (Auto) 0.6, Sodium Level 130L, Potassium Level 4.4, Chloride Level 92L, Carbon Dioxide Level 31, Anion Gap 7, Blood Urea Nitrogen 91H, Creatinine 6.2H, Estimat Glomerular Filtration Rate 9.1, Glucose Level 157H, Calcium Level 8.9, Total Bilirubin 0.3, Aspartate Amino Transf (AST/SGOT) 13L, Alanine Aminotransferase (ALT/SGPT) 7L, Alkaline Phosphatase 117H, Total Protein 6.0L, Albumin 1.8L, Globulin 4.2, Albumin/Globulin Ratio 0.4L Height (Feet): 5 Height (Inches): 4.00 Weight (Pounds): 233 General Appearance: no apparent distress Objective no other change Nakul Stevens MD January 04, 2019 15:19
[2019-01-04 16:00] VITALS: BP 137/46
--- NOTE | 2019-01-04 16:24 | Infectious Diseases Prog Note ---
Assessment/Plan Problems: (1) Foot ulcer Assessment & Plan: with MRSA grew out of it in the past, S/P vancomycin treatment with HD for two weeks, had vascular eval with revascularization to the right leg , S/P ulcer resection by authors motivational . deep ulcer culture grew MRSA and E.coli with diphtheroids , possible colonization , with no evidence of active infection as per discussion with podiatry , no need to be started on antibiotics for now , will continue to monitor clinically and make recommendations as necessary . bone scan ruled out osteomyelitis of the heel before, couldn't do an MRI since on the vent . continue local wound care as per authors motivational . (2) Thrush, oral Assessment & Plan: continue local nystatin as needed , S/P micafungin for three weeks empirically (3) HCV antibody positive Assessment & Plan: no evidence of active infection, with undetectable viral load , suspect due to previous infection , cleared, S/P liver transplant . (4) DM (diabetes mellitus) Assessment & Plan: recommend tight glycemic control to keep blood glucose between 100-140 (5) CHF (congestive heart failure) Assessment & Plan: on HD , renal is following, monitor daily weight (6) Severe tongue swelling Assessment & Plan: improving , s/p tracheostomy to protect his airway since respiratory status worsened . now improving, pulmonary is following (7) Pleural effusion Assessment & Plan: recurrent on the right, with lung collapse , S/P thoracentesis X 3 now with removal of 2.3 liters of clear fluids on 12/31/18 . await fluids culture and gram stain, with PH and Glucose level . PREVIOUS culture were negative with negative cytology. pulmonary is following (8) Ascites Assessment & Plan: S/P paracentesis with removal of 4.1 liters of fluids, culture so far is negative Assessment/Plan will continue to monitor patient on daily basis and make recommendations as necessary since he is high risk for recurrent infection Subjective Constitutional: Reports: no symptoms HEENT: Reports: no symptoms Respiratory: Reports: no symptoms Breasts: Reports: no symptoms Cardiovascular: Reports: no symptoms Gastrointestinal/Abdominal: Reports: no symptoms Genitourinary: Reports: no symptoms Neurologic: Reports: no symptoms Psychiatric: Reports: no symptoms Skin: Reports: no symptoms Endocrine: Reports: no symptoms Hematologic: Reports: no symptoms Musculoskeletal: Reports: no symptoms Allergies: Coded Allergies: CEPHALEXIN (Unverified Allergy, Unknown, 02/24/14) SULFAMETHOXAZOLE (Unverified Allergy, Unknown, 02/24/14) TRIMETHOPRIM (Unverified Allergy, Unknown, 02/24/14) Subjective he was comfortable, lying in bed, denied any fever or chills, no significant secretions, no SOB . has heel pain at the surgery site with wound VAC in place , but no draining coming out . hard of hearing, son at the bedside Objective Vital Signs Last 24 Hour Vital Signs Date Time Temp Pulse Resp B/P (MAP) Pulse Ox O2 Delivery O2 Flow Rate FiO2 01/04/19 15:16 71 24 40 01/04/19 13:01 68 25 40 01/04/19 12:00 98.4 76 25 138/55 (82) 99 01/04/19 12:00 Mechanical Ventilator 01/04/19 12:00 40 01/04/19 11:34 75 01/04/19 10:57 70 25 40 01/04/19 08:43 66 24 40 01/04/19 08:00 Mechanical Ventilator 01/04/19 08:00 40 01/04/19 08:00 97.7 74 25 138/89 (105) 100 01/04/19 07:29 75 01/04/19 07:06 64 26 40 01/04/19 04:49 75 25 40 01/04/19 04:00 Mechanical Ventilator 01/04/19 04:00 83 01/04/19 04:00 97.8 79 24 121/62 (81) 100 01/04/19 04:00 40 01/04/19 02:59 72 25 40 01/04/19 01:05 68 26 40 01/04/19 00:00 40 01/04/19 00:00 79 01/04/19 00:00 98.4 79 26 124/76 (92) 100 01/04/19 00:00 Mechanical Ventilator 01/03/19 23:05 67 25 40 01/03/19 20:51 77 25 40 01/03/19 20:00 98.6 78 26 92/38 (56) 100 01/03/19 20:00 82 01/03/19 20:00 40 01/03/19 20:00 Mechanical Ventilator 01/03/19 19:15 70 24 40 01/03/19 18:00 149/98 01/03/19 17:49 97.9 74 25 149/98 (115) 100 01/03/19 17:24 69 28 40 Height (Feet): 5 Height (Inches): 4.00 Weight (Pounds): 233 General Appearance: WD/WN, no acute distress HEENT: normocephalic, atraumatic, anicteric, mucous membranes moist, PERRL Respiratory/Chest: chest wall non-tender, no respiratory distress, no accessory muscle use, decreased breath sounds, crackles/rales Cardiovascular: normal peripheral pulses, normal rate, regular rhythm, no gallop/murmur, no JVD Abdomen: normal bowel sounds, soft, non tender, no organomegaly, non distended , no mass, no scars, other - G tube site is mildely red, no draining or foull smell Genitourinary: normal external genitalia Extremities: no cyanosis, no clubbing Skin: no rash, no lesions, no ulcers 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: alert, oriented x 3, responsive Lymphatic: no neck adenopathy, no groin adenopathy Musculoskeletal: normal muscle bulk, no effusion Laboratory Tests Test 01/04/19 04:35 White Blood Count 7.4 K/UL (4.8-10.8) Red Blood Count 3.31 M/UL (4.70-6.10) L Hemoglobin 8.4 G/DL (14.2-18.0) L Hematocrit 26.4 % (42.0-52.0) L Mean Corpuscular Volume 80 FL (80-99) Mean Corpuscular Hemoglobin 25.3 PG (27.0-31.0) L Mean Corpuscular Hemoglobin Concent 31.6 G/DL (32.0-36.0) L Red Cell Distribution Width 16.9 % (11.6-14.8) H Platelet Count 199 K/UL (150-450) Mean Platelet Volume 6.8 FL (6.5-10.1) Neutrophils (%) (Auto) 76.2 % (45.0-75.0) H Lymphocytes (%) (Auto) 15.2 % (20.0-45.0) L Monocytes (%) (Auto) 8.0 % (1.0-10.0) Eosinophils (%) (Auto) 0.0 % (0.0-3.0) Basophils (%) (Auto) 0.6 % (0.0-2.0) Sodium Level 130 MMOL/L (136-145) L Potassium Level 4.4 MMOL/L (3.5-5.1) Chloride Level 92 MMOL/L (98-107) L Carbon Dioxide Level 31 MMOL/L (21-32) Anion Gap 7 mmol/L (5-15) Blood Urea Nitrogen 91 mg/dL (7-18) H Creatinine 6.2 MG/DL (0.55-1.30) H Estimat Glomerular Filtration Rate 9.1 mL/min (>60) Glucose Level 157 MG/DL (74-106) H Calcium Level 8.9 MG/DL (8.5-10.1) Total Bilirubin 0.3 MG/DL (0.2-1.0) Aspartate Amino Transf (AST/SGOT) 13 U/L (15-37) L Alanine Aminotransferase (ALT/SGPT) 7 U/L (12-78) L Alkaline Phosphatase 117 U/L (46-116) H Total Protein 6.0 G/DL (6.4-8.2) L Albumin 1.8 G/DL (3.4-5.0) L Globulin 4.2 g/dL Albumin/Globulin Ratio 0.4 (1.0-2.7) L Current Medications Medications (Trade) Dose Ordered Sig/Aleks Route PRN Reason Start Time Stop Time Status Last Admin Dose Admin Acetaminophen (Tylenol) 650 mg Q6H PRN GT Mild Pain/Temp > 100.5 12/21/18 16:00 01/20/19 15:59 01/01/19 23:38 Acetaminophen/ Hydrocodone Bitart ([place] 5/325) 1 tab Q4H PRN GT Moderate Pain (Pain Scale 4-6) 12/29/18 11:15 01/05/19 11:14 01/04/19 15:04 Apixaban (Eliquis) 2.5 mg BID GT 01/01/19 21:00 01/31/19 20:59 01/04/19 09:24 Bacitracin (Bacitracin) 1 applic EVERY 12 HOURS TOPIC 12/11/18 21:00 01/06/19 17:59 01/04/19 09:24 Clotrimazole (Lotrimin) 1 applic BID TOPIC 12/07/18 18:00 01/06/19 17:59 01/04/19 09:25 Collagenase (Santyl) 1 applic DAILY TOPIC 12/29/18 09:00 01/28/19 08:59 01/04/19 09:25 Dextrose (Dextrose 50%) 25 ml Q30M PRN IV Hypoglycemia 12/31/18 23:00 01/30/19 22:59 Dextrose (Dextrose 50%) 50 ml Q30M PRN IV Hypoglycemia 12/31/18 23:00 01/30/19 22:59 Escitalopram Oxalate (Lexapro) 20 mg DAILY GT 01/05/19 09:00 02/04/19 08:59 Insulin Aspart (NovoLOG) EVERY 6 HOURS SUBQ 01/01/19 00:00 01/31/19 00:00 01/04/19 11:52 Metoclopramide HCl (Reglan) 5 mg Q6H PRN IVP Nausea & Vomiting 12/30/18 17:30 01/29/19 17:29 12/31/18 04:49 Midodrine (Pro-Amatine) 5 mg BID ORAL 12/31/18 18:00 01/30/19 17:59 01/04/19 09:24 Mirtazapine (Remeron) 15 mg BEDTIME GT 12/21/18 21:00 01/20/19 20:59 01/03/19 21:44 Nitroglycerin (Nitro-Bid) 1 inch TID@0600,1200,1800 TOPIC 12/07/18 12:00 01/06/19 11:59 12/29/18 17:58 Tacrolimus (Prograf) 2 mg MoWeFr@0000,1200 ORAL 12/28/18 00:00 01/27/19 00:00 01/04/19 11:50 Tacrolimus (Prograf) 2 mg SuTuThSa@0900,2100 ORAL 12/26/18 21:00 01/25/19 20:59 01/03/19 21:44 Francois Landis M.D. January 04, 2019 16:24
--- NOTE | 2019-01-04 17:30 | Progress Note ---
DATE: 01/04/2019 SUBJECTIVE: The patient is the same. He still continues to present with depressed mood, anhedonia, worthlessness, hopelessness, and decreased energy. The patient continues to be reluctant to some procedures and examinations. MENTAL STATUS EXAMINATION: The patient is alert and oriented x3. Intubated. Mood is depressed. Affect is constricted. Congruent with mood. Thought process is linear. Thought content, no suicidal or homicidal ideation. Insight and judgment is fair. . The patient is improved. ASSESSMENT: 1. Major depressive disorder. 2. Anxiety disorder. PLAN: 1. The patient will be continued on Remeron for insomnia and anxiety. 2. We will continue the citalopram. We will increase it to 20 mg in the morning. 3. Provide the patient with reality orientation and supportive therapy. Jeffrey Lala M.D. DR: LINDA JOB#: [id number] CC:
--- NOTE | 2019-01-04 17:50 | General Progress Note ---
Assessment/Plan Status: stable Assessment/Plan: Assessment and Recs: # Acute non-occlusive dvt, right extremity ultrasound (acute non-occlusive DVT in internal jugular) --> currently is on eliquis 2.5mg po bid, which recommend to continue (at this time on hold until further orders) --> do not recommend a SVC filter --> given prior bleeding risk, hold off on heparin gtt --> vasc surgeon is aware, seek recs # Anemia of chronic disease due to underlying chronic medical issues --> ferritin is 633, tibc is low --> No evidence of hemolysis is noted, peripheral smear has been reviewed. --> Epogen can be consider if hgb downtrends --> Medications have been reviewed --> evaluate with Gi team prn --> transfuse if hgb is < 7 (will trend CBC daily) --> hgb trend 11.2-->10.9-->10.8-->10.7-->10.2-->9.7-->9.7-->8.5-->9-->9.2-->8.4 # Failure to thrive is likely related to poor overall status, poor functional status --> with multiple decub ulcerations that are noted, seen by id/surgery --> s/p trach as well --> cea is wnl # Coagulopathy likely secondary to decreased Vitk dependent cofactors (high INR , PT) --> monitor closely for any evidence of bleeding. Currently is on eliquis --> VIT K on prn basis sq can be administered ==> recently has improved inr 1.2-->1.1-->1.2 # Acute respiratory failure is now s/p trach to vent --> as per surgery recs # Ground glass opacities present on imaging of lung --> with pleural effusions, s/p drainage at this time --> no evidence for malignancy is noted --> as per pulm/id # Pleural effusion --> s/p thoracentesis, s/p paracentesis 12/31 --> no evidence of malignancy # Hyperkalemia --> kayxelate on prn basis per renal # Renal failure --> per renal recs, appreciated --> getting hd as per schedule # Altered level of consciousness ==> currently as per baseline # PAD off heparin gtt and now on eliquis --> per vasc and cards --> 12/22 s/p right leg angiogram with intervention --> on eliquis, continue # Gt tube cellulitis, on topical abx as per id around site The timing of this note does not necessarily reflect the time of the patient was seen. Greatly appreciate consultation! Subjective HEENT: Denies: no symptoms, eye pain, blurred vision, tearing, double vision, ear pain, ear discharge, nose pain, nose congestion, throat pain, throat swelling, mouth pain, mouth swelling, other Cardiovascular: Denies: no symptoms, chest pain, edema, irregular heart rate, lightheadedness, palpitations, syncope, other Respiratory: Denies: no symptoms, cough, orthopnea, shortness of breath, SOB with excertion, SOB at rest, sputum, stridor, wheezing, other Gastrointestinal/Abdominal: Denies: no symptoms, abdomen distended, abdominal pain, black stools, tarry stools, blood in stool, constipated, diarrhea, difficulty swallowing, nausea, poor appetite, poor fluid intake, rectal bleeding , vomiting, other Genitourinary: Denies: no symptoms, burning, discharge, frequency, flank pain, hematuria, incontinence, pain, urgency, other 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: Denies: no symptoms, anxiety, depressed, emotional problems, headache, numbness, paresthesia, pre-existing deficit, seizure, tingling, tremors, weakness, other Endocrine: Denies: no symptoms, excessive sweating, flushing, intolerance to cold, intolerance to heat, increased hunger, increased thirst, increased urine, unexplained weight gain, unexplained weight loss, other Hematologic/Lymphatic: Denies: no symptoms, anemia, easy bleeding, easy bruising, other Allergies: Coded Allergies: CEPHALEXIN (Unverified Allergy, Unknown, 02/24/14) SULFAMETHOXAZOLE (Unverified Allergy, Unknown, 02/24/14) TRIMETHOPRIM (Unverified Allergy, Unknown, 02/24/14) Subjective 11/30: comfortable, on abx, no complaints, on t-piece 12/01: to have hd done potentially tomorrow, is more alert/awake 12/02: no major bleeding, hgb remains approx 11, no changes 12/03: no events, breathing mildly better, hgb is improved 12/04: on vent/trach, no major changes, sr ekg 12/10: small amount of secretions, on trach/vent, no issues otherwise 12/11: no major issues, no complaints, labs reviewed, no sig changes 12/13: no events to report, no fevers or chills, awaiting placement 12/14: no changes, no major events to report, no fevers or chills 12/15: pending placement, getting gt feeds and hd as per renal 12/16: labs have been reviewed, cbc noted, no changes 12/17: no events, no fevers, no cp, hgb remains stable 12/18: restarted on heparin gtt, seen by pulcamelia, cards 12/20: continues to be on heparin gtt, no bleeding reported, no f/c 12/21: hd for today, no fevers or chils, off hep gtt on eliquis 12/22: to get hd tomorrow, today is s/p right leg angiogram with intervention 12/23: hgb remins stable, no fevers or chills reported 12/24: no events, no bleeding, vitals reviewed, cbc stable 12/25: no events, no bleeding, on vent, hgb 9 12/27: no changes, no f/c, no night swearts, seen with other providers 12/28: right extremity ultrasound (acute non-occlusive DVT in internal jugular, on eliquis 12/29: no events, no night sweats, seen by gi, no bleeding 12/30: cbc has been reviewed, no f/c, no night sweats reported 12/31: no events, eliquis is on hold cbc has been reviewed, bp elevated 01/01: no fevers or chills, cbc reviewed, hgb 9.3, getting HD 01/02: no events noted, getting norco for pain, hgb stable 01/04: not events to report, no bleeding, refusing ivl at this time, cbc reviewed Objective Last 24 Hour Vital Signs Date Time Temp Pulse Resp B/P (MAP) Pulse Ox O2 Delivery O2 Flow Rate FiO2 01/04/19 17:12 76 26 40 01/04/19 16:00 40 01/04/19 16:00 Mechanical Ventilator 01/04/19 16:00 98.4 78 22 137/46 (76) 100 01/04/19 15:24 78 01/04/19 15:16 71 24 40 01/04/19 13:01 68 25 40 01/04/19 12:00 98.4 76 25 138/55 (82) 99 01/04/19 12:00 Mechanical Ventilator 01/04/19 12:00 40 01/04/19 11:34 75 01/04/19 10:57 70 25 40 01/04/19 08:43 66 24 40 01/04/19 08:00 Mechanical Ventilator 01/04/19 08:00 40 01/04/19 08:00 97.7 74 25 138/89 (105) 100 01/04/19 07:29 75 01/04/19 07:06 64 26 40 01/04/19 04:49 75 25 40 01/04/19 04:00 Mechanical Ventilator 01/04/19 04:00 83 01/04/19 04:00 97.8 79 24 121/62 (81) 100 01/04/19 04:00 40 01/04/19 02:59 72 25 40 01/04/19 01:05 68 26 40 01/04/19 00:00 40 01/04/19 00:00 79 01/04/19 00:00 98.4 79 26 124/76 (92) 100 01/04/19 00:00 Mechanical Ventilator 01/03/19 23:05 67 25 40 01/03/19 20:51 77 25 40 01/03/19 20:00 98.6 78 26 92/38 (56) 100 01/03/19 20:00 82 01/03/19 20:00 40 01/03/19 20:00 Mechanical Ventilator 01/03/19 19:15 70 24 40 01/03/19 18:00 149/98 Intake and Output 01/03/19 01/04/19 19:00 07:00 Intake Total 840 ml 740 ml Balance 840 ml 740 ml Free Water 300 ml 200 ml Tube Feeding 540 ml 540 ml Laboratory Tests 01/04/19 04:35: White Blood Count 7.4, Red Blood Count 3.31L, Hemoglobin 8.4L, Hematocrit 26.4L , Mean Corpuscular Volume 80, Mean Corpuscular Hemoglobin 25.3L, Mean Corpuscular Hemoglobin Concent 31.6L, Red Cell Distribution Width 16.9H, Platelet Count 199, Mean Platelet Volume 6.8, Neutrophils (%) (Auto) 76.2H, Lymphocytes (%) (Auto) 15.2L, Monocytes (%) (Auto) 8.0, Eosinophils (%) (Auto) 0.0, Basophils (%) (Auto) 0.6, Sodium Level 130L, Potassium Level 4.4, Chloride Level 92L, Carbon Dioxide Level 31, Anion Gap 7, Blood Urea Nitrogen 91H, Creatinine 6.2H, Estimat Glomerular Filtration Rate 9.1, Glucose Level 157H, Calcium Level 8.9, Total Bilirubin 0.3, Aspartate Amino Transf (AST/SGOT) 13L, Alanine Aminotransferase (ALT/SGPT) 7L, Alkaline Phosphatase 117H, Total Protein 6.0L, Albumin 1.8L, Globulin 4.2, Albumin/Globulin Ratio 0.4L 01/04/19 11:10: Hepatitis B Surface Antigen [Pending] Height (Feet): 5 Height (Inches): 4.00 Weight (Pounds): 233 Objective PE General Appearance: mild distress, moderate distress Lines, tubes and drains: peripheral HEENT: EOMI, thrush, tonsils swollen ++trach Neck: normal inspection Respiratory/Chest: decreased breath sounds, accessory muscle use Cardiovascular/Chest: tachycardia Abdomen: soft, no organomegaly, no mass, ++ peg Extremities: other Skin Exam: warm/dry, rash Neurologic: alert, responsive Zacarias Khoury MD January 04, 2019 17:50
[2019-01-04 20:00] VITALS: BP 118/60
[2019-01-04] MEDS: Acetaminophen 650mg/20.3ml GT PRN (23:19)
[2019-01-05 04:00] VITALS: BP 110/55
[2019-01-05] MEDS: Nitroglycerin 2% oint pkt TOPIC SCH ×3 (05:53→17:43)
[2019-01-05] MEDS: NovoLOG Insulin Flexpen SUBQ SCH ×4 (05:55→23:52)
[2019-01-05 08:00] VITALS: BP 142/94
[2019-01-05] MEDS: Eliquis 2.5mg tablet GT SCH ×2 (09:42→17:35)
--- NOTE | 2019-01-05 09:45 | GI Progress Note ---
Assessment/Plan Problems: (1) Foot ulcer ICD Codes: L97.509 - Non-pressure chronic ulcer of other part of unspecified foot with unspecified severity SNOMED: 23712565 Qualifiers: Qualified Codes: L97.511 - Non-pressure chronic ulcer of other part of right foot limited to breakdown of skin (2) DM (diabetes mellitus) ICD Codes: E11.9 - Type 2 diabetes mellitus without complications SNOMED: 64440323 (3) Transplant ICD Codes: Z94.9 - Transplanted organ and tissue status, unspecified SNOMED: 553274324 Status: stable Status Narrative Discussed with Dr. Escalera Assessment/Plan History of liver transplant, currently on Prograf History of cholecystectomy status post tracheostomy and PEG Infected G-tube site, fu ID recs C. difficile negative would care cx >> GRAM NEGATIVE BACILLUS CT AP reviewed, Moderate to large right pleural effusion. Moderate Ascites. s/p Paracentesis yielding 4.1 yield, r/o SBP >> negative for malignant cells Status post right thoracentesis yielding 2.1 L >> negative for malignant cells Continue G-tube feedings GT site care BID/prn topical abx around GT site per ID HD per nephro cont tacrolimus prn transfusions ppi zofran prn Titrate bowel regimen follow labs supportive care The patient was seen and examined at bedside and all new and available data was reviewed in the patients chart. I agree with the above findings, impression and plan. (Patient seen earlier today. Signature stamp does not reflect patient encounter time.). - Jorge Escalera MD Subjective Subjective Limited abdominal distention and discomfort improved Scrotal swelling and pain Objective Last 24 Hour Vital Signs Date Time Temp Pulse Resp B/P (MAP) Pulse Ox O2 Delivery O2 Flow Rate FiO2 01/05/19 08:55 75 25 40 01/05/19 08:00 98.8 77 27 142/94 (110) 99 01/05/19 08:00 Mechanical Ventilator 01/05/19 08:00 40 01/05/19 07:53 73 01/05/19 06:40 75 25 40 01/05/19 05:53 110/84 01/05/19 05:24 73 24 40 01/05/19 04:00 98.0 72 19 110/55 (73) 100 01/05/19 04:00 Mechanical Ventilator 01/05/19 04:00 72 01/05/19 04:00 40 01/05/19 02:58 77 25 40 01/05/19 01:09 84 23 40 01/05/19 00:00 Mechanical Ventilator 01/05/19 00:00 79 01/04/19 22:50 78 25 40 01/04/19 21:14 80 23 40 01/04/19 20:00 Mechanical Ventilator 01/04/19 20:00 81 01/04/19 20:00 97.9 89 20 118/60 (79) 100 01/04/19 20:00 40 01/04/19 18:50 75 22 40 01/04/19 18:00 137/46 01/04/19 17:12 76 26 40 01/04/19 16:00 40 01/04/19 16:00 Mechanical Ventilator 01/04/19 16:00 98.4 78 22 137/46 (76) 100 01/04/19 15:24 78 01/04/19 15:16 71 24 40 01/04/19 13:01 68 25 40 01/04/19 12:00 98.4 76 25 138/55 (82) 99 01/04/19 12:00 Mechanical Ventilator 01/04/19 12:00 40 01/04/19 11:34 75 01/04/19 10:57 70 25 40 Intake and Output 01/04/19 01/05/19 19:00 07:00 Intake Total 690 ml 840 ml Balance 690 ml 840 ml Free Water 150 ml 300 ml Tube Feeding 540 ml 540 ml # Bowel Movements 2 Laboratory Tests Test 01/04/19 11:10 Hepatitis B Surface Antigen Negative (Negative) Height (Feet): 5 Height (Inches): 4.00 Weight (Pounds): 214 General Appearance: WD/WN, no apparent distress, alert Cardiovascular: normal rate Respiratory/Chest: normal breath sounds, no respiratory distress, other - Tracheostomy dependent Abdominal Exam: normal bowel sounds, non tender, soft, GT site - Improving cellulitis Extremities: non-tender Objective Scrotal swelling Right upper extremity swelling Kelvin Briggs NP January 05, 2019 09:45
[2019-01-05] MEDS: Bacitracin Oint UD TOPIC SCH ×2 (09:46→20:45)
[2019-01-05 10:31] LABS: HEMOGLOBIN 8.6 G/DL (14.2-18.0); LYMPHOCYTES % (AUTO) 11.9 % (20.0-45.0); MEAN CORPUSCULAR VOLUME 79 FL (80-99); MONOCYTES % (AUTO) 8.8 % (1.0-10.0); NEUTROPHILS % (AUTO) 78.4 % (45.0-75.0); PLATELET COUNT 198 K/UL (150-450); RED BLOOD COUNT 3.41 M/UL (4.70-6.10); RED CELL DISTRIBUTION WIDTH 16.8 % (11.6-14.8); WHITE BLOOD COUNT 7.7 K/UL (4.8-10.8)
[2019-01-05 10:47] LABS: ANION GAP 9 mmol/L (5-15); BLOOD UREA NITROGEN 71 mg/dL (7-18); CALCIUM 8.8 MG/DL (8.5-10.1); CARBON DIOXIDE 31 MMOL/L (21-32); CHLORIDE 91 MMOL/L (98-107); CREATININE 5.3 MG/DL (0.55-1.30); POTASSIUM 4.2 MMOL/L (3.5-5.1); SODIUM 131 MMOL/L (136-145)
[2019-01-05 10:50] LABS: ALANINE AMINOTRANSFERASE 10 U/L (12-78); ALKALINE PHOSPHATASE 133 U/L (46-116); ASPARTATE AMINO TRANSFERASE 13 U/L (15-37); BILIRUBIN,DIRECT < 0.1 MG/DL (0.0-0.3); BILIRUBIN,TOTAL 0.4 MG/DL (0.2-1.0); PHOSPHORUS 4.1 MG/DL (2.5-4.9)
--- NOTE | 2019-01-05 11:26 | General Progress Note ---
Assessment/Plan Status: stable Assessment/Plan: #Right heel diabetic foot ulcer without osteomyelitis #PAD #Right IJ DVT -seen by Podiatry and ID -s/p Vanco x 2 weeks during HD -continue Eliquis -Vascular Surgery and Hematology following #Acute Resp hypercapnic failure s/p tracheostomy #Angioedema #Large right pleural effusion # R side trapped lung -continue trach care -Remains vent-dependant, breathing trials ongoing -Right thoracentesis 01/01/19 with 2.3 lt removed. Post procedure CXR with R trapped lung. -Pulm following #End-stage renal disease, on dialysis M-W- #RUE edema #Anasarca, ascites, scrotal edema, pleural effusion due to hypoalbuminemia -HD with UF per Nephrology #Coronary artery disease -continue ASA, Coreg, atorvastatin -cardiology following #Type 2 DM -ISS #Acute metabolic encephalopathy -continue supportive care -Neurology following #history of chronic HCV infection #history of liver transplant -continue Prograf -GI following #Abdominal distension and ascites s/p therapeutic paracentesis -no nausea, vomiting or tenderness -continue supportive care -GI following -s/p paracentesis 12/31/18 4.1 lt #Dysphagia S/p PEG with PEG site cellulitis -s/p antibiotics per ID and GI -continue local wound care -tolerating tube feeds # FULL CODE Subjective Date patient seen: January 05, 2019 Time patient seen: 08:22 ROS Limited/Unobtainable: Yes Cardiovascular: Denies: chest pain Respiratory: Denies: cough Gastrointestinal/Abdominal: Denies: abdomen distended Allergies: Coded Allergies: CEPHALEXIN (Unverified Allergy, Unknown, 02/24/14) SULFAMETHOXAZOLE (Unverified Allergy, Unknown, 02/24/14) TRIMETHOPRIM (Unverified Allergy, Unknown, 02/24/14) Subjective Medicine follow up for acute resp failure, PAD, right heel infected DFU, ESRD, anasarca secondary to hypoalbuminemia, right IJ DVT. S/p 4 liter paracentesis and 2 liter thoracentesis No new issues or complaints overnight. Objective Last 24 Hour Vital Signs Date Time Temp Pulse Resp B/P (MAP) Pulse Ox O2 Delivery O2 Flow Rate FiO2 01/05/19 10:43 77 25 40 01/05/19 08:55 75 25 40 01/05/19 08:00 98.8 77 27 142/94 (110) 99 01/05/19 08:00 Mechanical Ventilator 01/05/19 08:00 40 01/05/19 07:53 73 01/05/19 06:40 75 25 40 01/05/19 05:53 110/84 01/05/19 05:24 73 24 40 01/05/19 04:00 98.0 72 19 110/55 (73) 100 01/05/19 04:00 Mechanical Ventilator 01/05/19 04:00 72 01/05/19 04:00 40 01/05/19 02:58 77 25 40 01/05/19 01:09 84 23 40 01/05/19 00:00 Mechanical Ventilator 01/05/19 00:00 79 01/04/19 22:50 78 25 40 01/04/19 21:14 80 23 40 01/04/19 20:00 Mechanical Ventilator 01/04/19 20:00 81 01/04/19 20:00 97.9 89 20 118/60 (79) 100 01/04/19 20:00 40 01/04/19 18:50 75 22 40 01/04/19 18:00 137/46 01/04/19 17:12 76 26 40 01/04/19 16:00 40 01/04/19 16:00 Mechanical Ventilator 01/04/19 16:00 98.4 78 22 137/46 (76) 100 01/04/19 15:24 78 01/04/19 15:16 71 24 40 01/04/19 13:01 68 25 40 01/04/19 12:00 98.4 76 25 138/55 (82) 99 01/04/19 12:00 Mechanical Ventilator 01/04/19 12:00 40 01/04/19 11:34 75 Intake and Output 01/04/19 01/05/19 19:00 07:00 Intake Total 690 ml 840 ml Balance 690 ml 840 ml Free Water 150 ml 300 ml Tube Feeding 540 ml 540 ml # Bowel Movements 2 Laboratory Tests 01/05/19 09:20: White Blood Count 7.7, Red Blood Count 3.41L, Hemoglobin 8.6L, Hematocrit 27.0L , Mean Corpuscular Volume 79L, Mean Corpuscular Hemoglobin 25.3L, Mean Corpuscular Hemoglobin Concent 32.0, Red Cell Distribution Width 16.8H, Platelet Count 198, Mean Platelet Volume 7.7, Neutrophils (%) (Auto) 78.4H, Lymphocytes (%) (Auto) 11.9L, Monocytes (%) (Auto) 8.8, Eosinophils (%) (Auto) 0.0, Basophils (%) (Auto) 1.0, Sodium Level 131L, Potassium Level 4.2, Chloride Level 91L, Carbon Dioxide Level 31, Anion Gap 9, Blood Urea Nitrogen 71H, Creatinine 5.3H, Estimat Glomerular Filtration Rate 10.9, Glucose Level 143H, Calcium Level 8.8, Phosphorus Level 4.1, Magnesium Level 2.2, Total Bilirubin 0.4, Direct Bilirubin < 0.1, Aspartate Amino Transf (AST/SGOT) 13L, Alanine Aminotransferase (ALT/SGPT) 10L, Alkaline Phosphatase 133H, Total Protein 6.4, Albumin 2.0L Height (Feet): 5 Height (Inches): 4.00 Weight (Pounds): 214 General Appearance: lethargic Cardiovascular: normal rate, regular rhythm Respiratory/Chest: lungs clear, normal breath sounds Abdomen: normal bowel sounds, non tender, soft Dennis Branham MD January 05, 2019 11:26
[2019-01-05 11:55] VITALS: BP 138/72
--- NOTE | 2019-01-05 12:30 | Nephrology Progress Note ---
Assessment/Plan Problem List: (1) ESRD (end stage renal disease) on dialysis (2) Foot ulcer (3) CHF (congestive heart failure) Assessment: Ej Fx 20 % (4) Pacemaker (5) Acute respiratory failure Assessment: with Co2 retention (6) G-tube site cellulitis Assessment ESRD with high K and SOB on admit Foot ulcer, likely infected High Troponin likely NSTMI Pacer , Pleural effusion s/p CABGS s/p Liver transplant Plan dialysis 01/04 and 01/06 labs before HD noted BP low- improved on midodrine per consultants, GI GT site infection, topical antibiotic Neuro note appreciated placement in process vascular esteban regarding heel ulcer per Dr Mcgill pain med change to dilaudid GT Now has tracheostomy and PEG Adjust BP meds add nitro paste TID Antibiotics by ID per cardio and ID Podiatry and Vascular surgical fu ? DC planning? Subjective ROS Limited/Unobtainable: No Objective Objective Last 24 Hour Vital Signs Date Time Temp Pulse Resp B/P (MAP) Pulse Ox O2 Delivery O2 Flow Rate FiO2 01/05/19 12:00 Mechanical Ventilator 01/05/19 12:00 138/72 01/05/19 12:00 40 01/05/19 11:55 99.6 77 26 138/72 (94) 99 01/05/19 10:43 77 25 40 01/05/19 08:55 75 25 40 01/05/19 08:00 98.8 77 27 142/94 (110) 99 01/05/19 08:00 Mechanical Ventilator 01/05/19 08:00 40 01/05/19 07:53 73 01/05/19 06:40 75 25 40 01/05/19 05:53 110/84 01/05/19 05:24 73 24 40 01/05/19 04:00 98.0 72 19 110/55 (73) 100 01/05/19 04:00 Mechanical Ventilator 01/05/19 04:00 72 01/05/19 04:00 40 01/05/19 02:58 77 25 40 01/05/19 01:09 84 23 40 01/05/19 00:00 Mechanical Ventilator 01/05/19 00:00 79 01/04/19 22:50 78 25 40 01/04/19 21:14 80 23 40 01/04/19 20:00 Mechanical Ventilator 01/04/19 20:00 81 01/04/19 20:00 97.9 89 20 118/60 (79) 100 01/04/19 20:00 40 01/04/19 18:50 75 22 40 01/04/19 18:00 137/46 01/04/19 17:12 76 26 40 01/04/19 16:00 40 01/04/19 16:00 Mechanical Ventilator 01/04/19 16:00 98.4 78 22 137/46 (76) 100 01/04/19 15:24 78 01/04/19 15:16 71 24 40 01/04/19 13:01 68 25 40 Intake and Output 01/04/19 01/05/19 19:00 07:00 Intake Total 690 ml 840 ml Balance 690 ml 840 ml Free Water 150 ml 300 ml Tube Feeding 540 ml 540 ml # Bowel Movements 2 Laboratory Tests 01/05/19 09:20: White Blood Count 7.7, Red Blood Count 3.41L, Hemoglobin 8.6L, Hematocrit 27.0L , Mean Corpuscular Volume 79L, Mean Corpuscular Hemoglobin 25.3L, Mean Corpuscular Hemoglobin Concent 32.0, Red Cell Distribution Width 16.8H, Platelet Count 198, Mean Platelet Volume 7.7, Neutrophils (%) (Auto) 78.4H, Lymphocytes (%) (Auto) 11.9L, Monocytes (%) (Auto) 8.8, Eosinophils (%) (Auto) 0.0, Basophils (%) (Auto) 1.0, Sodium Level 131L, Potassium Level 4.2, Chloride Level 91L, Carbon Dioxide Level 31, Anion Gap 9, Blood Urea Nitrogen 71H, Creatinine 5.3H, Estimat Glomerular Filtration Rate 10.9, Glucose Level 143H, Calcium Level 8.8, Phosphorus Level 4.1, Magnesium Level 2.2, Total Bilirubin 0.4, Direct Bilirubin < 0.1, Aspartate Amino Transf (AST/SGOT) 13L, Alanine Aminotransferase (ALT/SGPT) 10L, Alkaline Phosphatase 133H, Total Protein 6.4, Albumin 2.0L Height (Feet): 5 Height (Inches): 4.00 Weight (Pounds): 214 EENT: other - trach Respiratory/Chest: decreased breath sounds Abdomen: soft, distended, other - PEg Objective no other change Nakul Stevens MD January 05, 2019 12:30
--- NOTE | 2019-01-05 14:47 | Surgery Progress Note ---
Surgery Progress Note Subjective Procedure Performed 1. emergency tracheostomy 2. left femoral central venous catheter insertion 3. bronchoscopy Symptoms: improved, tolerating diet, voiding well, passing flatus, BM Objective Last 24 Hour Vital Signs Date Time Temp Pulse Resp B/P (MAP) Pulse Ox O2 Delivery O2 Flow Rate FiO2 01/05/19 12:56 79 28 40 01/05/19 12:00 Mechanical Ventilator 01/05/19 12:00 138/72 01/05/19 12:00 40 01/05/19 11:55 99.6 77 26 138/72 (94) 99 01/05/19 11:34 83 01/05/19 10:43 77 25 40 01/05/19 08:55 75 25 40 01/05/19 08:00 98.8 77 27 142/94 (110) 99 01/05/19 08:00 Mechanical Ventilator 01/05/19 08:00 40 01/05/19 07:53 73 01/05/19 06:40 75 25 40 01/05/19 05:53 110/84 01/05/19 05:24 73 24 40 01/05/19 04:00 98.0 72 19 110/55 (73) 100 01/05/19 04:00 Mechanical Ventilator 01/05/19 04:00 72 01/05/19 04:00 40 01/05/19 02:58 77 25 40 01/05/19 01:09 84 23 40 01/05/19 00:00 Mechanical Ventilator 01/05/19 00:00 79 01/04/19 22:50 78 25 40 01/04/19 21:14 80 23 40 01/04/19 20:00 Mechanical Ventilator 01/04/19 20:00 81 01/04/19 20:00 97.9 89 20 118/60 (79) 100 01/04/19 20:00 40 01/04/19 18:50 75 22 40 01/04/19 18:00 137/46 01/04/19 17:12 76 26 40 01/04/19 16:00 40 01/04/19 16:00 Mechanical Ventilator 01/04/19 16:00 98.4 78 22 137/46 (76) 100 01/04/19 15:24 78 01/04/19 15:16 71 24 40 I&O Intake and Output 01/04/19 01/05/19 19:00 07:00 Intake Total 690 ml 840 ml Balance 690 ml 840 ml Free Water 150 ml 300 ml Tube Feeding 540 ml 540 ml # Bowel Movements 2 Dressing: dry Wound: clean, other Drains: other Cardiovascular: RSR Respiratory: decreased breath sounds Abdomen: soft, present bowel sounds, non-distended Extremities: no tenderness, no cyanosis Laboratory Tests Test 01/05/19 09:20 White Blood Count 7.7 K/UL (4.8-10.8) Red Blood Count 3.41 M/UL (4.70-6.10) L Hemoglobin 8.6 G/DL (14.2-18.0) L Hematocrit 27.0 % (42.0-52.0) L Mean Corpuscular Volume 79 FL (80-99) L Mean Corpuscular Hemoglobin 25.3 PG (27.0-31.0) L Mean Corpuscular Hemoglobin Concent 32.0 G/DL (32.0-36.0) Red Cell Distribution Width 16.8 % (11.6-14.8) H Platelet Count 198 K/UL (150-450) Mean Platelet Volume 7.7 FL (6.5-10.1) Neutrophils (%) (Auto) 78.4 % (45.0-75.0) H Lymphocytes (%) (Auto) 11.9 % (20.0-45.0) L Monocytes (%) (Auto) 8.8 % (1.0-10.0) Eosinophils (%) (Auto) 0.0 % (0.0-3.0) Basophils (%) (Auto) 1.0 % (0.0-2.0) Sodium Level 131 MMOL/L (136-145) L Potassium Level 4.2 MMOL/L (3.5-5.1) Chloride Level 91 MMOL/L (98-107) L Carbon Dioxide Level 31 MMOL/L (21-32) Anion Gap 9 mmol/L (5-15) Blood Urea Nitrogen 71 mg/dL (7-18) H Creatinine 5.3 MG/DL (0.55-1.30) H Estimat Glomerular Filtration Rate 10.9 mL/min (>60) Glucose Level 143 MG/DL (74-106) H Calcium Level 8.8 MG/DL (8.5-10.1) Phosphorus Level 4.1 MG/DL (2.5-4.9) Magnesium Level 2.2 MG/DL (1.8-2.4) Total Bilirubin 0.4 MG/DL (0.2-1.0) Direct Bilirubin < 0.1 MG/DL (0.0-0.3) Aspartate Amino Transf (AST/SGOT) 13 U/L (15-37) L Alanine Aminotransferase (ALT/SGPT) 10 U/L (12-78) L Alkaline Phosphatase 133 U/L (46-116) H Total Protein 6.4 G/DL (6.4-8.2) Albumin 2.0 G/DL (3.4-5.0) L Plan Problems: (1) Acute respiratory failure Assessment & Plan: dressings prn vent prn (2) Ground glass opacity present on imaging of lung (3) Pleural effusion (4) Hyperkalemia (5) Renal failure (6) Altered level of consciousness (7) blood culture: gram negative rods. (8) Rash and other nonspecific skin eruption (9) NSTEMI (non-ST elevated myocardial infarction) (10) ESRD (end stage renal disease) on dialysis (11) Elevated troponin (12) Foot ulcer (13) DM (diabetes mellitus) (14) CHF (congestive heart failure) (15) Pacemaker (16) Elevated troponin and foot ulcer (17) Cellulitis, abdominal wall (18) Encephalopathy acute (19) Pericardial effusion (20) Tachycardia (21) Sepsis (22) HTN (hypertension) (23) Severe tongue swelling (24) Severe tongue swelling Additional Comments wounds overall stable. cont with dressing changes. will need debridement later but for now cont with care until determined Jerman Young January 05, 2019 14:47
[2019-01-05 16:00] VITALS: BP 152/76
--- NOTE | 2019-01-05 16:30 | Hematology/Onc Progress Note ---
Assessment/Plan Assessment/Plan Assessment and Recs: # Acute non-occlusive dvt, right extremity ultrasound (acute non-occlusive DVT in internal jugular) --> currently is on eliquis 2.5mg po bid, which recommend to continue (at this time on hold until further orders) --> do not recommend a SVC filter --> given prior bleeding risk, hold off on heparin gtt --> vasc surgeon is aware, seek recs # Anemia of chronic disease due to underlying chronic medical issues --> ferritin is 633, tibc is low --> No evidence of hemolysis is noted, peripheral smear has been reviewed. --> Epogen can be consider if hgb downtrends --> Medications have been reviewed --> evaluate with Gi team prn --> transfuse if hgb is < 7 (will trend CBC daily) --> hgb trend 11.2-->10.9-->10.8-->10.7-->10.2-->9.7-->9.7-->8.5-->9-->9.2-->8.4 # Failure to thrive is likely related to poor overall status, poor functional status --> with multiple decub ulcerations that are noted, seen by id/surgery --> s/p trach as well --> cea is wnl # Coagulopathy likely secondary to decreased Vitk dependent cofactors (high INR , PT) --> monitor closely for any evidence of bleeding. Currently is on eliquis --> VIT K on prn basis sq can be administered --> recently has improved inr 1.2-->1.1-->1.2 # Acute respiratory failure is now s/p trach to vent --> as per surgery recs # Ground glass opacities present on imaging of lung --> with pleural effusions, s/p drainage at this time --> no evidence for malignancy is noted --> as per pulm/id # Pleural effusion --> s/p thoracentesis, s/p paracentesis 12/31 --> no evidence of malignancy # Hyperkalemia --> kayxelate on prn basis per renal # Renal failure --> per renal recs, appreciated --> getting hd as per schedule # Altered level of consciousness --> currently as per baseline # PAD off heparin gtt and now on eliquis --> per vasc and cards --> 12/22 s/p right leg angiogram with intervention --> on eliquis, continue # Gt tube cellulitis, on topical abx as per id around site The timing of this note does not necessarily reflect the time of the patient was seen. Greatly appreciate consultation! Subjective Constitutional: Denies: no symptoms, chills, fever, malaise, weakness, other HEENT: Denies: no symptoms, eye pain, blurred vision, tearing, double vision, ear pain, ear discharge, nose pain, nose congestion, throat pain, throat swelling, mouth pain, mouth swelling, other Cardiovascular: Denies: no symptoms, chest pain, edema, irregular heart rate, lightheadedness, palpitations, syncope, other Respiratory: Denies: no symptoms, cough, shortness of breath, SOB with excertion, SOB at rest, sputum, wheezing, other Gastrointestinal/Abdominal: Denies: no symptoms, abdomen distended, abdominal pain, black stools, tarry stools, blood in stool, constipated, diarrhea, difficulty swallowing, nausea, poor appetite, poor fluid intake, rectal bleeding , vomiting, other Genitourinary: Denies: no symptoms, burning, discharge, frequency, flank pain, hematuria, incontinence, pain, urgency, other 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: Denies: no symptoms, anxiety, depressed, emotional problems, headache, numbness, paresthesia, pre-existing deficit, seizure, tingling, tremors, weakness, other Allergies: Coded Allergies: CEPHALEXIN (Unverified Allergy, Unknown, 02/24/14) SULFAMETHOXAZOLE (Unverified Allergy, Unknown, 02/24/14) TRIMETHOPRIM (Unverified Allergy, Unknown, 02/24/14) Subjective 11/30: comfortable, on abx, no complaints, on t-piece 12/01: to have hd done potentially tomorrow, is more alert/awake 12/02: no major bleeding, hgb remains approx 11, no changes 12/03: no events, breathing mildly better, hgb is improved 12/04: on vent/trach, no major changes, sr ekg 12/10: small amount of secretions, on trach/vent, no issues otherwise 12/11: no major issues, no complaints, labs reviewed, no sig changes 12/13: no events to report, no fevers or chills, awaiting placement 12/14: no changes, no major events to report, no fevers or chills 12/15: pending placement, getting gt feeds and hd as per renal 12/16: labs have been reviewed, cbc noted, no changes 12/17: no events, no fevers, no cp, hgb remains stable 12/18: restarted on heparin gtt, seen by latia, clarisa 12/20: continues to be on heparin gtt, no bleeding reported, no f/c 12/21: hd for today, no fevers or chils, off hep gtt on eliquis 12/22: to get hd tomorrow, today is s/p right leg angiogram with intervention 12/23: hgb remins stable, no fevers or chills reported 12/24: no events, no bleeding, vitals reviewed, cbc stable 12/25: no events, no bleeding, on vent, hgb 9 12/27: no changes, no f/c, no night swearts, seen with other providers 12/28: right extremity ultrasound (acute non-occlusive DVT in internal jugular, on eliquis 12/29: no events, no night sweats, seen by gi, no bleeding 12/30: cbc has been reviewed, no f/c, no night sweats reported 12/31: no events, eliquis is on hold cbc has been reviewed, bp elevated 01/01: no fevers or chills, cbc reviewed, hgb 9.3, getting HD 01/02: no events noted, getting norco for pain, hgb stable 01/04: not events to report, no bleeding, refusing ivl at this time, cbc reviewed 01/05: no fevers or chills noted, s/p trach/vent, no f/c, no chills noted Objective Objective Current Medications Medications (Trade) Dose Ordered Sig/Aleks Route PRN Reason Start Time Stop Time Status Last Admin Dose Admin Acetaminophen (Tylenol) 650 mg Q6H PRN GT Mild Pain/Temp > 100.5 12/21/18 16:00 01/20/19 15:59 01/04/19 23:19 Acetaminophen/ Hydrocodone Bitart ([place] 5/325) 1 tab Q4H PRN ORAL Moderate Pain (Pain Scale 4-6) 01/05/19 14:30 01/12/19 14:29 Apixaban (Eliquis) 2.5 mg BID GT 01/01/19 21:00 01/31/19 20:59 01/05/19 09:42 Bacitracin (Bacitracin) 1 applic EVERY 12 HOURS TOPIC 12/11/18 21:00 01/06/19 17:59 01/05/19 09:46 Clotrimazole (Lotrimin) 1 applic BID TOPIC 12/07/18 18:00 01/06/19 17:59 01/05/19 09:43 Collagenase (Santyl) 1 applic DAILY TOPIC 12/29/18 09:00 01/28/19 08:59 01/05/19 09:43 Dextrose (Dextrose 50%) 25 ml Q30M PRN IV Hypoglycemia 12/31/18 23:00 01/30/19 22:59 Dextrose (Dextrose 50%) 50 ml Q30M PRN IV Hypoglycemia 12/31/18 23:00 01/30/19 22:59 Escitalopram Oxalate (Lexapro) 20 mg DAILY GT 01/05/19 09:00 02/04/19 08:59 01/05/19 09:42 Insulin Aspart (NovoLOG) EVERY 6 HOURS SUBQ 01/01/19 00:00 01/31/19 00:00 01/05/19 12:18 Metoclopramide HCl (Reglan) 5 mg Q6H PRN IVP Nausea & Vomiting 12/30/18 17:30 01/29/19 17:29 12/31/18 04:49 Midodrine (Pro-Amatine) 5 mg BID ORAL 12/31/18 18:00 01/30/19 17:59 01/05/19 09:43 Mirtazapine (Remeron) 15 mg BEDTIME GT 12/21/18 21:00 01/20/19 20:59 01/04/19 20:19 Nitroglycerin (Nitro-Bid) 1 inch TID@0600,1200,1800 TOPIC 12/07/18 12:00 01/06/19 11:59 12/29/18 17:58 Tacrolimus (Prograf) 2 mg MoWeFr@0000,1200 ORAL 12/28/18 00:00 01/27/19 00:00 01/04/19 11:50 Tacrolimus (Prograf) 2 mg SuTuThSa@0900,2100 ORAL 12/26/18 21:00 01/25/19 20:59 01/05/19 09:46 Last 24 Hour Vital Signs Date Time Temp Pulse Resp B/P (MAP) Pulse Ox O2 Delivery O2 Flow Rate FiO2 01/05/19 16:00 Mechanical Ventilator 01/05/19 14:59 76 33 40 01/05/19 14:20 81 35 40 01/05/19 12:56 79 28 40 01/05/19 12:00 Mechanical Ventilator 01/05/19 12:00 138/72 01/05/19 12:00 40 01/05/19 11:55 99.6 77 26 138/72 (94) 99 01/05/19 11:34 83 01/05/19 10:43 77 25 40 01/05/19 08:55 75 25 40 01/05/19 08:00 98.8 77 27 142/94 (110) 99 01/05/19 08:00 Mechanical Ventilator 01/05/19 08:00 40 01/05/19 07:53 73 01/05/19 06:40 75 25 40 01/05/19 05:53 110/84 01/05/19 05:24 73 24 40 01/05/19 04:00 98.0 72 19 110/55 (73) 100 01/05/19 04:00 Mechanical Ventilator 01/05/19 04:00 72 01/05/19 04:00 40 01/05/19 02:58 77 25 40 01/05/19 01:09 84 23 40 01/05/19 00:00 Mechanical Ventilator 01/05/19 00:00 79 01/04/19 22:50 78 25 40 01/04/19 21:14 80 23 40 01/04/19 20:00 Mechanical Ventilator 01/04/19 20:00 81 01/04/19 20:00 97.9 89 20 118/60 (79) 100 01/04/19 20:00 40 01/04/19 18:50 75 22 40 01/04/19 18:00 137/46 01/04/19 17:12 76 26 40 01/04/19 16:00 40 01/04/19 16:00 Mechanical Ventilator 01/04/19 16:00 98.4 78 22 137/46 (76) 100 01/04/19 15:24 78 01/04/19 15:16 71 24 40 01/04/19 13:01 68 25 40 01/04/19 12:00 98.4 76 25 138/55 (82) 99 01/04/19 12:00 Mechanical Ventilator 01/04/19 12:00 40 01/04/19 11:34 75 01/04/19 10:57 70 25 40 01/04/19 08:43 66 24 40 01/04/19 08:00 Mechanical Ventilator 01/04/19 08:00 40 01/04/19 08:00 97.7 74 25 138/89 (105) 100 01/04/19 07:29 75 01/04/19 07:06 64 26 40 01/04/19 04:49 75 25 40 01/04/19 04:00 Mechanical Ventilator 01/04/19 04:00 83 01/04/19 04:00 97.8 79 24 121/62 (81) 100 01/04/19 04:00 40 01/04/19 02:59 72 25 40 01/04/19 01:05 68 26 40 01/04/19 00:00 40 01/04/19 00:00 79 01/04/19 00:00 98.4 79 26 124/76 (92) 100 01/04/19 00:00 Mechanical Ventilator 01/03/19 23:05 67 25 40 01/03/19 20:51 77 25 40 01/03/19 20:00 98.6 78 26 92/38 (56) 100 01/03/19 20:00 82 01/03/19 20:00 40 01/03/19 20:00 Mechanical Ventilator 01/03/19 19:15 70 24 40 01/03/19 18:00 149/98 01/03/19 17:49 97.9 74 25 149/98 (115) 100 01/03/19 17:24 69 28 40 Intake and Output 01/04/19 01/05/19 19:00 07:00 Intake Total 690 ml 840 ml Balance 690 ml 840 ml Free Water 150 ml 300 ml Tube Feeding 540 ml 540 ml # Bowel Movements 2 Labs Test 01/03/19 06:50 01/04/19 04:35 01/04/19 11:10 01/05/19 09:20 White Blood Count 7.3 K/UL (4.8-10.8) 7.4 K/UL (4.8-10.8) 7.7 K/UL (4.8-10.8) Red Blood Count 3.34 M/UL (4.70-6.10) 3.31 M/UL (4.70-6.10) 3.41 M/UL (4.70-6.10) Hemoglobin 8.4 G/DL (14.2-18.0) 8.4 G/DL (14.2-18.0) 8.6 G/DL (14.2-18.0) Hematocrit 27.2 % (42.0-52.0) 26.4 % (42.0-52.0) 27.0 % (42.0-52.0) Mean Corpuscular Volume 81 FL (80-99) 80 FL (80-99) 79 FL (80-99) Mean Corpuscular Hemoglobin 25.2 PG (27.0-31.0) 25.3 PG (27.0-31.0) 25.3 PG (27.0-31.0) Mean Corpuscular Hemoglobin Concent 31.0 G/DL (32.0-36.0) 31.6 G/DL (32.0-36.0) 32.0 G/DL (32.0-36.0) Red Cell Distribution Width 17.1 % (11.6-14.8) 16.9 % (11.6-14.8) 16.8 % (11.6-14.8) Platelet Count 176 K/UL (150-450) 199 K/UL (150-450) 198 K/UL (150-450) Mean Platelet Volume 6.5 FL (6.5-10.1) 6.8 FL (6.5-10.1) 7.7 FL (6.5-10.1) Neutrophils (%) (Auto) 73.6 % (45.0-75.0) 76.2 % (45.0-75.0) 78.4 % (45.0-75.0) Lymphocytes (%) (Auto) 16.4 % (20.0-45.0) 15.2 % (20.0-45.0) 11.9 % (20.0-45.0) Monocytes (%) (Auto) 8.5 % (1.0-10.0) 8.0 % (1.0-10.0) 8.8 % (1.0-10.0) Eosinophils (%) (Auto) 0.1 % (0.0-3.0) 0.0 % (0.0-3.0) 0.0 % (0.0-3.0) Basophils (%) (Auto) 1.4 % (0.0-2.0) 0.6 % (0.0-2.0) 1.0 % (0.0-2.0) Sodium Level 133 MMOL/L (136-145) 130 MMOL/L (136-145) 131 MMOL/L (136-145) Potassium Level 4.1 MMOL/L (3.5-5.1) 4.4 MMOL/L (3.5-5.1) 4.2 MMOL/L (3.5-5.1) Chloride Level 93 MMOL/L (98-107) 92 MMOL/L (98-107) 91 MMOL/L (98-107) Carbon Dioxide Level 29 MMOL/L (21-32) 31 MMOL/L (21-32) 31 MMOL/L (21-32) Anion Gap 12 mmol/L (5-15) 7 mmol/L (5-15) 9 mmol/L (5-15) Blood Urea Nitrogen 69 mg/dL (7-18) 91 mg/dL (7-18) 71 mg/dL (7-18) Creatinine 5.1 MG/DL (0.55-1.30) 6.2 MG/DL (0.55-1.30) 5.3 MG/DL (0.55-1.30) Estimat Glomerular Filtration Rate 11.4 mL/min (>60) 9.1 mL/min (>60) 10.9 mL/min (>60) Glucose Level 141 MG/DL (74-106) 157 MG/DL (74-106) 143 MG/DL (74-106) Calcium Level 8.7 MG/DL (8.5-10.1) 8.9 MG/DL (8.5-10.1) 8.8 MG/DL (8.5-10.1) Total Bilirubin 0.3 MG/DL (0.2-1.0) 0.4 MG/DL (0.2-1.0) Aspartate Amino Transf (AST/SGOT) 13 U/L (15-37) 13 U/L (15-37) Alanine Aminotransferase (ALT/SGPT) 7 U/L (12-78) 10 U/L (12-78) Alkaline Phosphatase 117 U/L (46-116) 133 U/L (46-116) Total Protein 6.0 G/DL (6.4-8.2) 6.4 G/DL (6.4-8.2) Albumin 1.8 G/DL (3.4-5.0) 2.0 G/DL (3.4-5.0) Globulin 4.2 g/dL Albumin/Globulin Ratio 0.4 (1.0-2.7) Hepatitis B Surface Antigen Negative (Negative) Phosphorus Level 4.1 MG/DL (2.5-4.9) Magnesium Level 2.2 MG/DL (1.8-2.4) Direct Bilirubin < 0.1 MG/DL (0.0-0.3) Height (Feet): 5 Height (Inches): 4.00 Weight (Pounds): 214 Objective PE General Appearance: mild distress, moderate distress Lines, tubes and drains: peripheral HEENT: EOMI, thrush, tonsils swollen ++trach Neck: normal inspection Respiratory/Chest: decreased breath sounds, accessory muscle use Cardiovascular/Chest: tachycardia Abdomen: soft, no organomegaly, no mass, ++ peg Extremities: other Skin Exam: warm/dry, rash Neurologic: alert, responsive Zacarias Khoury MD January 05, 2019 16:30
--- NOTE | 2019-01-05 16:38 | Cardiac Electrophysiology PN ---
Assessment/Plan Assessment/Plan 1. Troponin leak due to renal failure. No CP or SOB 2. CAD. S/P CABG. On Coreg , aspirin and Lipitor 3. NSVT in setting of old [place] and CABG. EF 55%. Continue Coreg 4. CHF and right pleural effusion. On hemodialysis. S/P Thoracentesis 5. S/P Right sided Medtronic dual chamber pacemaker with Nl Fx. 6. End-stage renal disease, on hemodialysis per Dr. Stevens S/P Fistulogram by Dr. Salmeron 7. Multilevel AOD LE's with non-healing Right foot ulcer. Had abdominal angiogram per Dr Salmeron Antibiotic per Dr. Landis. FU by Dr. Huizar S/P peripheral intervention by Dr. Salmeron 12/22/18 Right foot on Wound-Vac 8. History of liver transplant on Prograf 9. Respiratory failure, S/P tracheostomy. 10. Pleural effusion. s/p 2300 cc thoracentesis 01/01/[address] Mendoza 11. Dysphagia, S/P PEG 12. Low BP. Resolved. DC Midodrine XIOMARA RN Subjective Subjective Comfortable in NAD. Awaiting placement Objective Last 24 Hour Vital Signs Date Time Temp Pulse Resp B/P (MAP) Pulse Ox O2 Delivery O2 Flow Rate FiO2 01/05/19 16:00 Mechanical Ventilator 01/05/19 14:59 76 33 40 01/05/19 14:20 81 35 40 01/05/19 12:56 79 28 40 01/05/19 12:00 Mechanical Ventilator 01/05/19 12:00 138/72 01/05/19 12:00 40 01/05/19 11:55 99.6 77 26 138/72 (94) 99 01/05/19 11:34 83 01/05/19 10:43 77 25 40 01/05/19 08:55 75 25 40 01/05/19 08:00 98.8 77 27 142/94 (110) 99 01/05/19 08:00 Mechanical Ventilator 01/05/19 08:00 40 01/05/19 07:53 73 01/05/19 06:40 75 25 40 01/05/19 05:53 110/84 01/05/19 05:24 73 24 40 01/05/19 04:00 98.0 72 19 110/55 (73) 100 01/05/19 04:00 Mechanical Ventilator 01/05/19 04:00 72 01/05/19 04:00 40 01/05/19 02:58 77 25 40 01/05/19 01:09 84 23 40 01/05/19 00:00 Mechanical Ventilator 01/05/19 00:00 79 01/04/19 22:50 78 25 40 01/04/19 21:14 80 23 40 01/04/19 20:00 Mechanical Ventilator 01/04/19 20:00 81 01/04/19 20:00 97.9 89 20 118/60 (79) 100 01/04/19 20:00 40 01/04/19 18:50 75 22 40 01/04/19 18:00 137/46 01/04/19 17:12 76 26 40 Intake and Output 01/04/19 01/05/19 19:00 07:00 Intake Total 690 ml 840 ml Balance 690 ml 840 ml Free Water 150 ml 300 ml Tube Feeding 540 ml 540 ml # Bowel Movements 2 Laboratory Tests Test 01/05/19 09:20 White Blood Count 7.7 K/UL (4.8-10.8) Red Blood Count 3.41 M/UL (4.70-6.10) L Hemoglobin 8.6 G/DL (14.2-18.0) L Hematocrit 27.0 % (42.0-52.0) L Mean Corpuscular Volume 79 FL (80-99) L Mean Corpuscular Hemoglobin 25.3 PG (27.0-31.0) L Mean Corpuscular Hemoglobin Concent 32.0 G/DL (32.0-36.0) Red Cell Distribution Width 16.8 % (11.6-14.8) H Platelet Count 198 K/UL (150-450) Mean Platelet Volume 7.7 FL (6.5-10.1) Neutrophils (%) (Auto) 78.4 % (45.0-75.0) H Lymphocytes (%) (Auto) 11.9 % (20.0-45.0) L Monocytes (%) (Auto) 8.8 % (1.0-10.0) Eosinophils (%) (Auto) 0.0 % (0.0-3.0) Basophils (%) (Auto) 1.0 % (0.0-2.0) Sodium Level 131 MMOL/L (136-145) L Potassium Level 4.2 MMOL/L (3.5-5.1) Chloride Level 91 MMOL/L (98-107) L Carbon Dioxide Level 31 MMOL/L (21-32) Anion Gap 9 mmol/L (5-15) Blood Urea Nitrogen 71 mg/dL (7-18) H Creatinine 5.3 MG/DL (0.55-1.30) H Estimat Glomerular Filtration Rate 10.9 mL/min (>60) Glucose Level 143 MG/DL (74-106) H Calcium Level 8.8 MG/DL (8.5-10.1) Phosphorus Level 4.1 MG/DL (2.5-4.9) Magnesium Level 2.2 MG/DL (1.8-2.4) Total Bilirubin 0.4 MG/DL (0.2-1.0) Direct Bilirubin < 0.1 MG/DL (0.0-0.3) Aspartate Amino Transf (AST/SGOT) 13 U/L (15-37) L Alanine Aminotransferase (ALT/SGPT) 10 U/L (12-78) L Alkaline Phosphatase 133 U/L (46-116) H Total Protein 6.4 G/DL (6.4-8.2) Albumin 2.0 G/DL (3.4-5.0) L Objective HEAD AND NECK: No JVD. Tracheostomy intact LUNGS: Clear CARDIOVASCULAR: Irregular S1 and S2 with no gallop. Sternotomy is intact Pacemaker in the right subclavian ABDOMEN: Soft. PEG in place EXTREMITIES: 1+ pitting edema. Right heel in dressing and connected to WoundVac Shivam Sharpe MD January 05, 2019 16:38
--- NOTE | 2019-01-05 16:45 | Infectious Diseases Prog Note ---
Assessment/Plan Problems: (1) Foot ulcer Assessment & Plan: with MRSA grew out of it in the past, S/P vancomycin treatment with HD for two weeks, had vascular eval with revascularization to the right leg , S/P ulcer resection by industrial machine operator . deep ulcer culture grew MRSA and E.coli with diphtheroids , possible colonization , with no evidence of active infection as per discussion with podiatry , no need to be started on antibiotics for now , will continue to monitor clinically and make recommendations as necessary . bone scan ruled out osteomyelitis of the heel before, couldn't do an MRI since on the vent . continue local wound care as per industrial machine operator . (2) Thrush, oral Assessment & Plan: continue local nystatin as needed , S/P micafungin for three weeks empirically (3) HCV antibody positive Assessment & Plan: no evidence of active infection, with undetectable viral load , suspect due to previous infection , cleared, S/P liver transplant . (4) DM (diabetes mellitus) Assessment & Plan: recommend tight glycemic control to keep blood glucose between 100-140 (5) CHF (congestive heart failure) Assessment & Plan: on HD , renal is following, monitor daily weight (6) Severe tongue swelling Assessment & Plan: improving , s/p tracheostomy to protect his airway since respiratory status worsened . now improving, pulmonary is following (7) Pleural effusion Assessment & Plan: recurrent on the right, with lung collapse , S/P thoracentesis X 3 now with removal of 2.3 liters of clear fluids on 12/31/18 . await fluids culture and gram stain, with PH and Glucose level . PREVIOUS culture were negative with negative cytology. pulmonary is following (8) Ascites Assessment & Plan: S/P paracentesis with removal of 4.1 liters of fluids, culture so far is negative Assessment/Plan will continue to monitor patient on daily basis and make recommendations as necessary since he is high risk for recurrent infection Subjective Constitutional: Reports: no symptoms HEENT: Reports: no symptoms Respiratory: Reports: no symptoms Breasts: Reports: no symptoms Cardiovascular: Reports: no symptoms Gastrointestinal/Abdominal: Reports: no symptoms Genitourinary: Reports: no symptoms Neurologic: Reports: no symptoms Psychiatric: Reports: no symptoms Skin: Reports: no symptoms Endocrine: Reports: no symptoms Hematologic: Reports: no symptoms Musculoskeletal: Reports: no symptoms Allergies: Coded Allergies: CEPHALEXIN (Unverified Allergy, Unknown, 02/24/14) SULFAMETHOXAZOLE (Unverified Allergy, Unknown, 02/24/14) TRIMETHOPRIM (Unverified Allergy, Unknown, 02/24/14) Subjective he was comfortable, lying in bed, denied any fever or chills, no significant secretions, no SOB . has heel pain at the surgery site with wound VAC in place , but no draining coming out . hard of hearing, son at the bedside Objective Vital Signs Last 24 Hour Vital Signs Date Time Temp Pulse Resp B/P (MAP) Pulse Ox O2 Delivery O2 Flow Rate FiO2 01/05/19 16:00 Mechanical Ventilator 01/05/19 14:59 76 33 40 01/05/19 14:20 81 35 40 01/05/19 12:56 79 28 40 01/05/19 12:00 Mechanical Ventilator 01/05/19 12:00 138/72 01/05/19 12:00 40 01/05/19 11:55 99.6 77 26 138/72 (94) 99 01/05/19 11:34 83 01/05/19 10:43 77 25 40 01/05/19 08:55 75 25 40 01/05/19 08:00 98.8 77 27 142/94 (110) 99 01/05/19 08:00 Mechanical Ventilator 01/05/19 08:00 40 01/05/19 07:53 73 01/05/19 06:40 75 25 40 01/05/19 05:53 110/84 01/05/19 05:24 73 24 40 01/05/19 04:00 98.0 72 19 110/55 (73) 100 01/05/19 04:00 Mechanical Ventilator 01/05/19 04:00 72 01/05/19 04:00 40 01/05/19 02:58 77 25 40 01/05/19 01:09 84 23 40 01/05/19 00:00 Mechanical Ventilator 01/05/19 00:00 79 01/04/19 22:50 78 25 40 01/04/19 21:14 80 23 40 01/04/19 20:00 Mechanical Ventilator 01/04/19 20:00 81 01/04/19 20:00 97.9 89 20 118/60 (79) 100 01/04/19 20:00 40 01/04/19 18:50 75 22 40 01/04/19 18:00 137/46 01/04/19 17:12 76 26 40 Height (Feet): 5 Height (Inches): 4.00 Weight (Pounds): 214 General Appearance: WD/WN, no acute distress HEENT: normocephalic, atraumatic, anicteric, mucous membranes moist, PERRL Respiratory/Chest: chest wall non-tender, lungs clear, normal breath sounds, no respiratory distress, no accessory muscle use Cardiovascular: normal peripheral pulses, normal rate, regular rhythm, no gallop/murmur, no JVD Abdomen: normal bowel sounds, soft, non tender, no organomegaly, non distended , no mass, no scars Extremities: no cyanosis, no clubbing Skin: no rash, no lesions, no ulcers 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: alert, oriented x 3, responsive Lymphatic: no neck adenopathy, no groin adenopathy Musculoskeletal: normal muscle bulk, no effusion Laboratory Tests Test 01/05/19 09:20 White Blood Count 7.7 K/UL (4.8-10.8) Red Blood Count 3.41 M/UL (4.70-6.10) L Hemoglobin 8.6 G/DL (14.2-18.0) L Hematocrit 27.0 % (42.0-52.0) L Mean Corpuscular Volume 79 FL (80-99) L Mean Corpuscular Hemoglobin 25.3 PG (27.0-31.0) L Mean Corpuscular Hemoglobin Concent 32.0 G/DL (32.0-36.0) Red Cell Distribution Width 16.8 % (11.6-14.8) H Platelet Count 198 K/UL (150-450) Mean Platelet Volume 7.7 FL (6.5-10.1) Neutrophils (%) (Auto) 78.4 % (45.0-75.0) H Lymphocytes (%) (Auto) 11.9 % (20.0-45.0) L Monocytes (%) (Auto) 8.8 % (1.0-10.0) Eosinophils (%) (Auto) 0.0 % (0.0-3.0) Basophils (%) (Auto) 1.0 % (0.0-2.0) Sodium Level 131 MMOL/L (136-145) L Potassium Level 4.2 MMOL/L (3.5-5.1) Chloride Level 91 MMOL/L (98-107) L Carbon Dioxide Level 31 MMOL/L (21-32) Anion Gap 9 mmol/L (5-15) Blood Urea Nitrogen 71 mg/dL (7-18) H Creatinine 5.3 MG/DL (0.55-1.30) H Estimat Glomerular Filtration Rate 10.9 mL/min (>60) Glucose Level 143 MG/DL (74-106) H Calcium Level 8.8 MG/DL (8.5-10.1) Phosphorus Level 4.1 MG/DL (2.5-4.9) Magnesium Level 2.2 MG/DL (1.8-2.4) Total Bilirubin 0.4 MG/DL (0.2-1.0) Direct Bilirubin < 0.1 MG/DL (0.0-0.3) Aspartate Amino Transf (AST/SGOT) 13 U/L (15-37) L Alanine Aminotransferase (ALT/SGPT) 10 U/L (12-78) L Alkaline Phosphatase 133 U/L (46-116) H Total Protein 6.4 G/DL (6.4-8.2) Albumin 2.0 G/DL (3.4-5.0) L Current Medications Medications (Trade) Dose Ordered Sig/Aleks Route PRN Reason Start Time Stop Time Status Last Admin Dose Admin Acetaminophen (Tylenol) 650 mg Q6H PRN GT Mild Pain/Temp > 100.5 12/21/18 16:00 01/20/19 15:59 01/04/19 23:19 Acetaminophen/ Hydrocodone Bitart ([place] 5/325) 1 tab Q4H PRN ORAL Moderate Pain (Pain Scale 4-6) 01/05/19 14:30 01/12/19 14:29 Apixaban (Eliquis) 2.5 mg BID GT 01/01/19 21:00 01/31/19 20:59 01/05/19 09:42 Bacitracin (Bacitracin) 1 applic EVERY 12 HOURS TOPIC 12/11/18 21:00 01/06/19 17:59 01/05/19 09:46 Clotrimazole (Lotrimin) 1 applic BID TOPIC 12/07/18 18:00 01/06/19 17:59 01/05/19 09:43 Collagenase (Santyl) 1 applic DAILY TOPIC 12/29/18 09:00 01/28/19 08:59 01/05/19 09:43 Dextrose (Dextrose 50%) 25 ml Q30M PRN IV Hypoglycemia 12/31/18 23:00 01/30/19 22:59 Dextrose (Dextrose 50%) 50 ml Q30M PRN IV Hypoglycemia 12/31/18 23:00 01/30/19 22:59 Escitalopram Oxalate (Lexapro) 20 mg DAILY GT 01/05/19 09:00 02/04/19 08:59 01/05/19 09:42 Insulin Aspart (NovoLOG) EVERY 6 HOURS SUBQ 01/01/19 00:00 01/31/19 00:00 01/05/19 12:18 Metoclopramide HCl (Reglan) 5 mg Q6H PRN IVP Nausea & Vomiting 12/30/18 17:30 01/29/19 17:29 12/31/18 04:49 Mirtazapine (Remeron) 15 mg BEDTIME GT 12/21/18 21:00 01/20/19 20:59 01/04/19 20:19 Nitroglycerin (Nitro-Bid) 1 inch TID@0600,1200,1800 TOPIC 12/07/18 12:00 01/06/19 11:59 12/29/18 17:58 Tacrolimus (Prograf) 2 mg MoWeFr@0000,1200 ORAL 12/28/18 00:00 01/27/19 00:00 01/04/19 11:50 Tacrolimus (Prograf) 2 mg SuTuThSa@0900,2100 ORAL 12/26/18 21:00 01/25/19 20:59 01/05/19 09:46 Francois Landis M.D. January 05, 2019 16:45
[2019-01-05] MEDS: HYDROcodone/Acetamin 5/325 tab ORAL PRN ×2 (17:36→23:50)
--- NOTE | 2019-01-05 18:30 | Progress Note ---
DATE: 01/05/2019 SUBJECTIVE: The patient is the same. Continues to be amotivated. Presents with depressed mood, anhedonia, worthlessness, low energy, and poor memory. MENTAL STATUS EXAMINATION: The patient is alert and oriented times self, place, and situation. Mood is depressed. Affect is constricted. Congruent with mood. Thought process is concrete. Thought content, no suicidal or homicidal ideations. ASSESSMENT: 1. Major depressive disorder. 2. Anxiety disorder. PLAN: We will continue the Celexa and continue the Remeron. Provide the patient with reality orientation and supportive therapy. Jeffrey Lala M.D. DR: LINDA JOB#: [id number] CC:
[2019-01-05 20:00] VITALS: BP 99/48
[2019-01-05] MEDS: Metoclopramide 10mg/2ml Inj IVP PRN (20:45)
[2019-01-05] MEDS: Acetaminophen 650mg/20.3ml GT PRN (20:46)
[2019-01-06] VITALS: BP 108/55
[2019-01-06 05:15] LABS: HEMATOCRIT 24.5 % (42.0-52.0); HEMOGLOBIN 7.7 G/DL (14.2-18.0); MEAN CORPUSCULAR VOLUME 80 FL (80-99); PLATELET COUNT 178 K/UL (150-450); RED BLOOD COUNT 3.07 M/UL (4.70-6.10); RED CELL DISTRIBUTION WIDTH 16.5 % (11.6-14.8); WHITE BLOOD COUNT 8.5 K/UL (4.8-10.8)
[2019-01-06 05:44] LABS: ALANINE AMINOTRANSFERASE 6 U/L (12-78); ALBUMIN 1.9 G/DL (3.4-5.0); ALBUMIN/GLOBULIN RATIO 0.5 (1.0-2.7); ALKALINE PHOSPHATASE 154 U/L (46-116); ANION GAP 11 mmol/L (5-15); ASPARTATE AMINO TRANSFERASE 15 U/L (15-37); BILIRUBIN,TOTAL 0.4 MG/DL (0.2-1.0); BLOOD UREA NITROGEN 84 mg/dL (7-18); CALCIUM 8.7 MG/DL (8.5-10.1); CARBON DIOXIDE 29 MMOL/L (21-32); CHLORIDE 90 MMOL/L (98-107); CREATININE 5.8 MG/DL (0.55-1.30); POTASSIUM 4.2 MMOL/L (3.5-5.1); SODIUM 130 MMOL/L (136-145)
[2019-01-06] MEDS: NovoLOG Insulin Flexpen SUBQ SCH ×4 (06:00→23:35)
[2019-01-06] MEDS: Nitroglycerin 2% oint pkt TOPIC SCH (06:00)
[2019-01-06 08:00] VITALS: BP 163/77
[2019-01-06] MEDS: Eliquis 2.5mg tablet GT SCH ×2 (09:01→18:15)
[2019-01-06] MEDS: Bacitracin Oint UD TOPIC SCH (09:02)
--- NOTE | 2019-01-06 09:37 | GI Progress Note ---
Assessment/Plan Problems: (1) Foot ulcer ICD Codes: L97.509 - Non-pressure chronic ulcer of other part of unspecified foot with unspecified severity SNOMED: 27285610 Qualifiers: Qualified Codes: L97.511 - Non-pressure chronic ulcer of other part of right foot limited to breakdown of skin (2) DM (diabetes mellitus) ICD Codes: E11.9 - Type 2 diabetes mellitus without complications SNOMED: 79779890 (3) Transplant ICD Codes: Z94.9 - Transplanted organ and tissue status, unspecified SNOMED: 360718255 Status: unchanged Status Narrative Discussed with Dr. Escalera Assessment/Plan History of liver transplant, currently on Prograf History of cholecystectomy status post tracheostomy and PEG Infected G-tube site, fu ID recs C. difficile negative would care cx >> GRAM NEGATIVE BACILLUS CT AP reviewed, Moderate to large right pleural effusion. Moderate Ascites. s/p Paracentesis yielding 4.1 yield, r/o SBP >> negative for malignant cells Status post right thoracentesis yielding 2.1 L >> negative for malignant cells Continue G-tube feedings GT site care BID/prn topical abx around GT site per ID HD per nephro cont tacrolimus prn transfusions ppi zofran prn Titrate bowel regimen follow labs supportive care The patient was seen and examined at bedside and all new and available data was reviewed in the patients chart. I agree with the above findings, impression and plan. (Patient seen earlier today. Signature stamp does not reflect patient encounter time.). - Jorge Escalera MD Subjective Subjective Limited abdominal distention and discomfort improved Objective Last 24 Hour Vital Signs Date Time Temp Pulse Resp B/P (MAP) Pulse Ox O2 Delivery O2 Flow Rate FiO2 01/06/19 08:59 72 25 40 01/06/19 08:00 97.5 74 24 163/77 (105) 100 01/06/19 08:00 40 01/06/19 07:01 80 25 40 01/06/19 04:55 78 23 40 01/06/19 04:00 40 01/06/19 04:00 Mechanical Ventilator 01/06/19 03:24 79 01/06/19 03:07 77 21 40 01/06/19 00:49 80 26 40 01/06/19 00:00 98.7 88 26 108/55 (72) 100 01/06/19 00:00 Mechanical Ventilator 01/05/19 23:41 80 01/05/19 22:51 82 22 40 01/05/19 20:36 75 25 40 01/05/19 20:00 98.4 82 23 99/48 (65) 100 01/05/19 20:00 40 01/05/19 20:00 Mechanical Ventilator 01/05/19 19:04 80 01/05/19 18:55 78 30 40 01/05/19 17:43 152/76 01/05/19 16:43 81 30 40 01/05/19 16:00 40 01/05/19 16:00 Mechanical Ventilator 01/05/19 16:00 99.2 83 23 152/76 (101) 99 01/05/19 15:20 81 35 40 01/05/19 15:17 89 01/05/19 14:59 76 33 40 01/05/19 12:56 79 28 40 01/05/19 12:00 Mechanical Ventilator 01/05/19 12:00 138/72 01/05/19 12:00 40 01/05/19 11:55 99.6 77 26 138/72 (94) 99 01/05/19 11:34 83 01/05/19 10:43 77 25 40 Intake and Output 01/05/19 01/06/19 19:00 07:00 Intake Total 740 ml 480 ml Balance 740 ml 480 ml Free Water 200 ml 60 ml Tube Feeding 540 ml 360 ml Other 60 ml # Bowel Movements 1 7 Laboratory Tests Test 01/06/19 04:15 White Blood Count 8.5 K/UL (4.8-10.8) Red Blood Count 3.07 M/UL (4.70-6.10) L Hemoglobin 7.7 G/DL (14.2-18.0) L Hematocrit 24.5 % (42.0-52.0) L Mean Corpuscular Volume 80 FL (80-99) Mean Corpuscular Hemoglobin 25.0 PG (27.0-31.0) L Mean Corpuscular Hemoglobin Concent 31.4 G/DL (32.0-36.0) L Red Cell Distribution Width 16.5 % (11.6-14.8) H Platelet Count 178 K/UL (150-450) Mean Platelet Volume 7.0 FL (6.5-10.1) Neutrophils (%) (Auto) % (45.0-75.0) Lymphocytes (%) (Auto) % (20.0-45.0) Monocytes (%) (Auto) % (1.0-10.0) Eosinophils (%) (Auto) % (0.0-3.0) Basophils (%) (Auto) % (0.0-2.0) Differential Total Cells Counted 100 Neutrophils % (Manual) 77 % (45-75) H Lymphocytes % (Manual) 13 % (20-45) L Monocytes % (Manual) 10 % (1-10) Eosinophils % (Manual) 0 % (0-3) Basophils % (Manual) 0 % (0-2) Band Neutrophils 0 % (0-8) Platelet Estimate Adequate Platelet Morphology Normal Hypochromasia 3+ Anisocytosis 1+ Sodium Level 130 MMOL/L (136-145) L Potassium Level 4.2 MMOL/L (3.5-5.1) Chloride Level 90 MMOL/L (98-107) L Carbon Dioxide Level 29 MMOL/L (21-32) Anion Gap 11 mmol/L (5-15) Blood Urea Nitrogen 84 mg/dL (7-18) H Creatinine 5.8 MG/DL (0.55-1.30) H Estimat Glomerular Filtration Rate 9.8 mL/min (>60) Glucose Level 108 MG/DL (74-106) H Calcium Level 8.7 MG/DL (8.5-10.1) Total Bilirubin 0.4 MG/DL (0.2-1.0) Aspartate Amino Transf (AST/SGOT) 15 U/L (15-37) Alanine Aminotransferase (ALT/SGPT) 6 U/L (12-78) L Alkaline Phosphatase 154 U/L (46-116) H Total Protein 6.1 G/DL (6.4-8.2) L Albumin 1.9 G/DL (3.4-5.0) L Globulin 4.2 g/dL Albumin/Globulin Ratio 0.5 (1.0-2.7) L Height (Feet): 5 Height (Inches): 4.00 Weight (Pounds): 263 General Appearance: WD/WN, no apparent distress, alert Cardiovascular: normal rate Respiratory/Chest: normal breath sounds, no respiratory distress Abdominal Exam: normal bowel sounds, non tender, soft, GT site - Improved erythema around the site Extremities: non-tender Objective Scrotal swelling Right upper extremity swelling Kelvin Briggs NP January 06, 2019 09:37
--- NOTE | 2019-01-06 10:54 | General Progress Note ---
Assessment/Plan Status: unchanged Assessment/Plan: #Right heel diabetic foot ulcer without osteomyelitis #PAD #Right IJ DVT -seen by Podiatry and ID -s/p Vanco x 2 weeks during HD -continue Eliquis -Vascular Surgery and Hematology following #Acute Resp hypercapnic failure s/p tracheostomy #Angioedema #Large right pleural effusion # R side trapped lung -continue trach care -Remains vent-dependant, breathing trials ongoing -Right thoracentesis 01/01/19 with 2.3 lt removed. Post procedure CXR with R trapped lung. -Pulm following #End-stage renal disease, on dialysis M-W- #RUE edema #Anasarca, ascites, scrotal edema, pleural effusion due to hypoalbuminemia -HD with UF per Nephrology #Coronary artery disease -continue ASA, Coreg, atorvastatin -cardiology following #Type 2 DM -ISS #Acute metabolic encephalopathy -continue supportive care -Neurology following #history of chronic HCV infection #history of liver transplant -continue Prograf -GI following #Abdominal distension and ascites s/p therapeutic paracentesis -no nausea, vomiting or tenderness -continue supportive care -GI following -s/p paracentesis 12/31/18 4.1 lt #Dysphagia S/p PEG with PEG site cellulitis -s/p antibiotics per ID and GI -continue local wound care -tolerating tube feeds # FULL CODE Subjective Date patient seen: January 06, 2019 Time patient seen: 10:50 ROS Limited/Unobtainable: Yes Constitutional: Denies: chills, fever Cardiovascular: Denies: chest pain Respiratory: Denies: cough Gastrointestinal/Abdominal: Denies: abdomen distended Allergies: Coded Allergies: CEPHALEXIN (Unverified Allergy, Unknown, 02/24/14) SULFAMETHOXAZOLE (Unverified Allergy, Unknown, 02/24/14) TRIMETHOPRIM (Unverified Allergy, Unknown, 02/24/14) Subjective Medicine follow up for acute resp failure, PAD, right heel infected DFU, ESRD, anasarca secondary to hypoalbuminemia, right IJ DVT. S/p 4 liter paracentesis and 2 liter thoracentesis No new issues or complaints overnight. No new complaints. Objective Last 24 Hour Vital Signs Date Time Temp Pulse Resp B/P (MAP) Pulse Ox O2 Delivery O2 Flow Rate FiO2 01/06/19 10:42 68 25 40 01/06/19 08:59 72 25 40 01/06/19 08:00 Mechanical Ventilator 01/06/19 08:00 97.5 74 24 163/77 (105) 100 01/06/19 08:00 40 01/06/19 07:26 74 01/06/19 07:01 80 25 40 01/06/19 04:55 78 23 40 01/06/19 04:00 40 01/06/19 04:00 Mechanical Ventilator 01/06/19 03:24 79 01/06/19 03:07 77 21 40 01/06/19 00:49 80 26 40 01/06/19 00:00 98.7 88 26 108/55 (72) 100 01/06/19 00:00 Mechanical Ventilator 01/05/19 23:41 80 01/05/19 22:51 82 22 40 01/05/19 20:36 75 25 40 01/05/19 20:00 98.4 82 23 99/48 (65) 100 01/05/19 20:00 40 01/05/19 20:00 Mechanical Ventilator 01/05/19 19:04 80 01/05/19 18:55 78 30 40 01/05/19 17:43 152/76 01/05/19 16:43 81 30 40 01/05/19 16:00 40 01/05/19 16:00 Mechanical Ventilator 01/05/19 16:00 99.2 83 23 152/76 (101) 99 01/05/19 15:20 81 35 40 01/05/19 15:17 89 01/05/19 14:59 76 33 40 01/05/19 12:56 79 28 40 01/05/19 12:00 Mechanical Ventilator 01/05/19 12:00 138/72 01/05/19 12:00 40 01/05/19 11:55 99.6 77 26 138/72 (94) 99 01/05/19 11:34 83 Intake and Output 01/05/19 01/06/19 19:00 07:00 Intake Total 740 ml 480 ml Balance 740 ml 480 ml Free Water 200 ml 60 ml Tube Feeding 540 ml 360 ml Other 60 ml # Bowel Movements 1 7 Laboratory Tests 01/06/19 04:15: White Blood Count 8.5, Red Blood Count 3.07L, Hemoglobin 7.7L, Hematocrit 24.5L , Mean Corpuscular Volume 80, Mean Corpuscular Hemoglobin 25.0L, Mean Corpuscular Hemoglobin Concent 31.4L, Red Cell Distribution Width 16.5H, Platelet Count 178, Mean Platelet Volume 7.0, Neutrophils (%) (Auto) , Lymphocytes (%) (Auto) , Monocytes (%) (Auto) , Eosinophils (%) (Auto) , Basophils (%) (Auto) , Differential Total Cells Counted 100, Neutrophils % ( Manual) 77H, Lymphocytes % (Manual) 13L, Monocytes % (Manual) 10, Eosinophils % (Manual) 0, Basophils % (Manual) 0, Band Neutrophils 0, Platelet Estimate Adequate, Platelet Morphology Normal, Hypochromasia 3+, Anisocytosis 1+, Sodium Level 130L, Potassium Level 4.2, Chloride Level 90L, Carbon Dioxide Level 29, Anion Gap 11, Blood Urea Nitrogen 84H, Creatinine 5.8H, Estimat Glomerular Filtration Rate 9.8, Glucose Level 108H, Calcium Level 8.7, Total Bilirubin 0.4 , Aspartate Amino Transf (AST/SGOT) 15, Alanine Aminotransferase (ALT/SGPT) 6L, Alkaline Phosphatase 154H, Total Protein 6.1L, Albumin 1.9L, Globulin 4.2, Albumin/Globulin Ratio 0.5L Height (Feet): 5 Height (Inches): 4.00 Weight (Pounds): 263 General Appearance: no apparent distress, alert Cardiovascular: normal rate, regular rhythm Respiratory/Chest: lungs clear, normal breath sounds Abdomen: non tender, soft Dennis Branham MD January 06, 2019 10:54
--- NOTE | 2019-01-06 11:59 | Hematology/Onc Progress Note ---
Assessment/Plan Assessment/Plan Assessment and Recs: # Acute non-occlusive dvt, right extremity ultrasound (acute non-occlusive DVT in internal jugular) --> currently is on eliquis 2.5mg po bid --> do not recommend a SVC filter --> given prior bleeding risk, hold off on heparin gtt --> vasc surgeon is aware, seek recs # Anemia of chronic disease due to underlying chronic medical issues --> ferritin is 633, tibc is low --> No evidence of hemolysis is noted, peripheral smear has been reviewed. --> Epogen can be consider if hgb downtrends --> Medications have been reviewed --> evaluate with Gi team prn --> transfuse if hgb is < 7 (will trend CBC daily) --> hgb trend 11.2-->10.9-->10.8-->10.7-->10.2-->9.7-->9.7-->8.5-->9-->9.2-->8.4 -->7.7 --> s/p transfusion on 01/06 # Failure to thrive is likely related to poor overall status, poor functional status --> with multiple decub ulcerations that are noted, seen by id/surgery --> s/p trach as well --> cea is wnl # Coagulopathy likely secondary to decreased Vitk dependent cofactors (high INR , PT) --> monitor closely for any evidence of bleeding. Currently is on eliquis --> VIT K on prn basis sq can be administered --> recently has improved inr 1.2-->1.1-->1.2 # Acute respiratory failure is now s/p trach to vent --> as per surgery recs # Ground glass opacities present on imaging of lung --> with pleural effusions, s/p drainage at this time --> no evidence for malignancy is noted --> as per pulm/id # Pleural effusion --> s/p thoracentesis, s/p paracentesis 12/31 --> no evidence of malignancy # Hyperkalemia --> kayxelate on prn basis per renal # Renal failure --> per renal recs, appreciated --> getting hd as per schedule # Altered level of consciousness --> currently as per baseline # PAD off heparin gtt and now on eliquis --> per vasc and cards --> 12/22 s/p right leg angiogram with intervention --> on eliquis, continue # Gt tube cellulitis, on topical abx as per id around site The timing of this note does not necessarily reflect the time of the patient was seen. Greatly appreciate consultation! Subjective Constitutional: Denies: no symptoms, chills, fever, malaise, weakness, other HEENT: Denies: no symptoms, eye pain, blurred vision, tearing, double vision, ear pain, ear discharge, nose pain, nose congestion, throat pain, throat swelling, mouth pain, mouth swelling, other Cardiovascular: Denies: no symptoms, chest pain, edema, irregular heart rate, lightheadedness, palpitations, syncope, other Respiratory: Denies: no symptoms, cough, shortness of breath, SOB with excertion, SOB at rest, sputum, wheezing, other Gastrointestinal/Abdominal: Denies: no symptoms, abdomen distended, abdominal pain, black stools, tarry stools, blood in stool, constipated, diarrhea, difficulty swallowing, nausea, poor appetite, poor fluid intake, rectal bleeding , vomiting, other Genitourinary: Denies: no symptoms, burning, discharge, frequency, flank pain, hematuria, incontinence, pain, urgency, other 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: Denies: no symptoms, anxiety, depressed, emotional problems, headache, numbness, paresthesia, pre-existing deficit, seizure, tingling, tremors, weakness, other Endocrine: Denies: no symptoms, excessive sweating, flushing, intolerance to cold, intolerance to heat, increased hunger, increased thirst, increased urine, unexplained weight gain, unexplained weight loss, other Allergies: Coded Allergies: CEPHALEXIN (Unverified Allergy, Unknown, 02/24/14) SULFAMETHOXAZOLE (Unverified Allergy, Unknown, 02/24/14) TRIMETHOPRIM (Unverified Allergy, Unknown, 02/24/14) Subjective 11/30: comfortable, on abx, no complaints, on t-piece 12/01: to have hd done potentially tomorrow, is more alert/awake 12/02: no major bleeding, hgb remains approx 11, no changes 12/03: no events, breathing mildly better, hgb is improved 12/04: on vent/trach, no major changes, sr ekg 12/10: small amount of secretions, on trach/vent, no issues otherwise 12/11: no major issues, no complaints, labs reviewed, no sig changes 12/13: no events to report, no fevers or chills, awaiting placement 12/14: no changes, no major events to report, no fevers or chills 12/15: pending placement, getting gt feeds and hd as per renal 12/16: labs have been reviewed, cbc noted, no changes 12/17: no events, no fevers, no cp, hgb remains stable 12/18: restarted on heparin gtt, seen by pulm, cards 12/20: continues to be on heparin gtt, no bleeding reported, no f/c 12/21: hd for today, no fevers or chils, off hep gtt on eliquis 12/22: to get hd tomorrow, today is s/p right leg angiogram with intervention 12/23: hgb remins stable, no fevers or chills reported 12/24: no events, no bleeding, vitals reviewed, cbc stable 12/25: no events, no bleeding, on vent, hgb 9 12/27: no changes, no f/c, no night swearts, seen with other providers 12/28: right extremity ultrasound (acute non-occlusive DVT in internal jugular, on eliquis 12/29: no events, no night sweats, seen by gi, no bleeding 12/30: cbc has been reviewed, no f/c, no night sweats reported 12/31: no events, eliquis is on hold cbc has been reviewed, bp elevated 01/01: no fevers or chills, cbc reviewed, hgb 9.3, getting HD 01/02: no events noted, getting norco for pain, hgb stable 01/04: not events to report, no bleeding, refusing ivl at this time, cbc reviewed 01/05: no fevers or chills noted, s/p trach/vent, no f/c, no chills noted 01/06: no events, to get 1 unit prbc today, renal seen, on abx Objective Objective Current Medications Medications (Trade) Dose Ordered Sig/Aleks Route PRN Reason Start Time Stop Time Status Last Admin Dose Admin Acetaminophen (Tylenol) 650 mg Q6H PRN GT Mild Pain/Temp > 100.5 12/21/18 16:00 01/20/19 15:59 01/05/19 20:46 Acetaminophen/ Hydrocodone Bitart ([place] 5/325) 1 tab Q4H PRN ORAL Moderate Pain (Pain Scale 4-6) 01/05/19 14:30 01/12/19 14:29 01/05/19 23:50 Apixaban (Eliquis) 2.5 mg BID GT 01/01/19 21:00 01/31/19 20:59 01/06/19 09:01 Bacitracin (Bacitracin) 1 applic EVERY 12 HOURS TOPIC 12/11/18 21:00 01/06/19 17:59 01/06/19 09:02 Clotrimazole (Lotrimin) 1 applic BID TOPIC 12/07/18 18:00 01/06/19 17:59 01/06/19 09:02 Collagenase (Santyl) 1 applic DAILY TOPIC 12/29/18 09:00 01/28/19 08:59 01/06/19 09:02 Dextrose (Dextrose 50%) 25 ml Q30M PRN IV Hypoglycemia 12/31/18 23:00 01/30/19 22:59 Dextrose (Dextrose 50%) 50 ml Q30M PRN IV Hypoglycemia 12/31/18 23:00 01/30/19 22:59 Escitalopram Oxalate (Lexapro) 20 mg DAILY GT 01/05/19 09:00 02/04/19 08:59 01/06/19 09:01 Insulin Aspart (NovoLOG) EVERY 6 HOURS SUBQ 01/01/19 00:00 01/31/19 00:00 01/05/19 23:52 Metoclopramide HCl (Reglan) 5 mg Q6H PRN IVP Nausea & Vomiting 12/30/18 17:30 01/29/19 17:29 01/05/19 20:45 Mirtazapine (Remeron) 15 mg BEDTIME GT 12/21/18 21:00 01/20/19 20:59 01/05/19 20:45 Nitroglycerin (Nitro-Bid) 1 inch TID@0600,1200,1800 TOPIC 12/07/18 12:00 01/06/19 11:59 12/29/18 17:58 Tacrolimus (Prograf) 2 mg MoWeFr@0000,1200 ORAL 12/28/18 00:00 01/27/19 00:00 01/06/19 11:45 Tacrolimus (Prograf) 2 mg SuTuThSa@0900,2100 ORAL 12/26/18 21:00 01/25/19 20:59 01/05/19 20:45 Last 24 Hour Vital Signs Date Time Temp Pulse Resp B/P (MAP) Pulse Ox O2 Delivery O2 Flow Rate FiO2 01/06/19 10:42 68 25 40 01/06/19 08:59 72 25 40 01/06/19 08:00 Mechanical Ventilator 01/06/19 08:00 97.5 74 24 163/77 (105) 100 01/06/19 08:00 40 01/06/19 07:26 74 01/06/19 07:01 80 25 40 01/06/19 04:55 78 23 40 01/06/19 04:00 40 01/06/19 04:00 Mechanical Ventilator 01/06/19 03:24 79 01/06/19 03:07 77 21 40 01/06/19 00:49 80 26 40 01/06/19 00:00 98.7 88 26 108/55 (72) 100 01/06/19 00:00 Mechanical Ventilator 01/05/19 23:41 80 01/05/19 22:51 82 22 40 01/05/19 20:36 75 25 40 01/05/19 20:00 98.4 82 23 99/48 (65) 100 01/05/19 20:00 40 01/05/19 20:00 Mechanical Ventilator 01/05/19 19:04 80 01/05/19 18:55 78 30 40 01/05/19 17:43 152/76 01/05/19 16:43 81 30 40 01/05/19 16:00 40 01/05/19 16:00 Mechanical Ventilator 01/05/19 16:00 99.2 83 23 152/76 (101) 99 01/05/19 15:20 81 35 40 01/05/19 15:17 89 01/05/19 14:59 76 33 40 01/05/19 12:56 79 28 40 01/05/19 12:00 Mechanical Ventilator 01/05/19 12:00 138/72 01/05/19 12:00 40 01/05/19 11:55 99.6 77 26 138/72 (94) 99 01/05/19 11:34 83 01/05/19 10:43 77 25 40 01/05/19 08:55 75 25 40 01/05/19 08:00 98.8 77 27 142/94 (110) 99 01/05/19 08:00 Mechanical Ventilator 01/05/19 08:00 40 01/05/19 07:53 73 01/05/19 06:40 75 25 40 01/05/19 05:53 110/84 01/05/19 05:24 73 24 40 01/05/19 04:00 98.0 72 19 110/55 (73) 100 01/05/19 04:00 Mechanical Ventilator 01/05/19 04:00 72 01/05/19 04:00 40 01/05/19 02:58 77 25 40 01/05/19 01:09 84 23 40 01/05/19 00:00 Mechanical Ventilator 01/05/19 00:00 79 01/04/19 22:50 78 25 40 01/04/19 21:14 80 23 40 01/04/19 20:00 Mechanical Ventilator 01/04/19 20:00 81 01/04/19 20:00 97.9 89 20 118/60 (79) 100 01/04/19 20:00 40 01/04/19 18:50 75 22 40 01/04/19 18:00 137/46 01/04/19 17:12 76 26 40 01/04/19 16:00 40 01/04/19 16:00 Mechanical Ventilator 01/04/19 16:00 98.4 78 22 137/46 (76) 100 01/04/19 15:24 78 01/04/19 15:16 71 24 40 01/04/19 13:01 68 25 40 01/04/19 12:00 98.4 76 25 138/55 (82) 99 01/04/19 12:00 Mechanical Ventilator 01/04/19 12:00 40 Intake and Output 01/05/19 01/06/19 19:00 07:00 Intake Total 740 ml 480 ml Balance 740 ml 480 ml Free Water 200 ml 60 ml Tube Feeding 540 ml 360 ml Other 60 ml # Bowel Movements 1 7 Labs Test 01/04/19 04:35 01/04/19 11:10 01/05/19 09:20 01/06/19 04:15 White Blood Count 7.4 K/UL (4.8-10.8) 7.7 K/UL (4.8-10.8) 8.5 K/UL (4.8-10.8) Red Blood Count 3.31 M/UL (4.70-6.10) 3.41 M/UL (4.70-6.10) 3.07 M/UL (4.70-6.10) Hemoglobin 8.4 G/DL (14.2-18.0) 8.6 G/DL (14.2-18.0) 7.7 G/DL (14.2-18.0) Hematocrit 26.4 % (42.0-52.0) 27.0 % (42.0-52.0) 24.5 % (42.0-52.0) Mean Corpuscular Volume 80 FL (80-99) 79 FL (80-99) 80 FL (80-99) Mean Corpuscular Hemoglobin 25.3 PG (27.0-31.0) 25.3 PG (27.0-31.0) 25.0 PG (27.0-31.0) Mean Corpuscular Hemoglobin Concent 31.6 G/DL (32.0-36.0) 32.0 G/DL (32.0-36.0) 31.4 G/DL (32.0-36.0) Red Cell Distribution Width 16.9 % (11.6-14.8) 16.8 % (11.6-14.8) 16.5 % (11.6-14.8) Platelet Count 199 K/UL (150-450) 198 K/UL (150-450) 178 K/UL (150-450) Mean Platelet Volume 6.8 FL (6.5-10.1) 7.7 FL (6.5-10.1) 7.0 FL (6.5-10.1) Neutrophils (%) (Auto) 76.2 % (45.0-75.0) 78.4 % (45.0-75.0) % (45.0-75.0) Lymphocytes (%) (Auto) 15.2 % (20.0-45.0) 11.9 % (20.0-45.0) % (20.0-45.0) Monocytes (%) (Auto) 8.0 % (1.0-10.0) 8.8 % (1.0-10.0) % (1.0-10.0) Eosinophils (%) (Auto) 0.0 % (0.0-3.0) 0.0 % (0.0-3.0) % (0.0-3.0) Basophils (%) (Auto) 0.6 % (0.0-2.0) 1.0 % (0.0-2.0) % (0.0-2.0) Sodium Level 130 MMOL/L (136-145) 131 MMOL/L (136-145) 130 MMOL/L (136-145) Potassium Level 4.4 MMOL/L (3.5-5.1) 4.2 MMOL/L (3.5-5.1) 4.2 MMOL/L (3.5-5.1) Chloride Level 92 MMOL/L (98-107) 91 MMOL/L (98-107) 90 MMOL/L (98-107) Carbon Dioxide Level 31 MMOL/L (21-32) 31 MMOL/L (21-32) 29 MMOL/L (21-32) Anion Gap 7 mmol/L (5-15) 9 mmol/L (5-15) 11 mmol/L (5-15) Blood Urea Nitrogen 91 mg/dL (7-18) 71 mg/dL (7-18) 84 mg/dL (7-18) Creatinine 6.2 MG/DL (0.55-1.30) 5.3 MG/DL (0.55-1.30) 5.8 MG/DL (0.55-1.30) Estimat Glomerular Filtration Rate 9.1 mL/min (>60) 10.9 mL/min (>60) 9.8 mL/min (>60) Glucose Level 157 MG/DL (74-106) 143 MG/DL (74-106) 108 MG/DL (74-106) Calcium Level 8.9 MG/DL (8.5-10.1) 8.8 MG/DL (8.5-10.1) 8.7 MG/DL (8.5-10.1) Total Bilirubin 0.3 MG/DL (0.2-1.0) 0.4 MG/DL (0.2-1.0) 0.4 MG/DL (0.2-1.0) Aspartate Amino Transf (AST/SGOT) 13 U/L (15-37) 13 U/L (15-37) 15 U/L (15-37) Alanine Aminotransferase (ALT/SGPT) 7 U/L (12-78) 10 U/L (12-78) 6 U/L (12-78) Alkaline Phosphatase 117 U/L (46-116) 133 U/L (46-116) 154 U/L (46-116) Total Protein 6.0 G/DL (6.4-8.2) 6.4 G/DL (6.4-8.2) 6.1 G/DL (6.4-8.2) Albumin 1.8 G/DL (3.4-5.0) 2.0 G/DL (3.4-5.0) 1.9 G/DL (3.4-5.0) Globulin 4.2 g/dL 4.2 g/dL Albumin/Globulin Ratio 0.4 (1.0-2.7) 0.5 (1.0-2.7) Hepatitis B Surface Antigen Negative (Negative) Phosphorus Level 4.1 MG/DL (2.5-4.9) Magnesium Level 2.2 MG/DL (1.8-2.4) Direct Bilirubin < 0.1 MG/DL (0.0-0.3) Differential Total Cells Counted 100 Neutrophils % (Manual) 77 % (45-75) Lymphocytes % (Manual) 13 % (20-45) Monocytes % (Manual) 10 % (1-10) Eosinophils % (Manual) 0 % (0-3) Basophils % (Manual) 0 % (0-2) Band Neutrophils 0 % (0-8) Platelet Estimate Adequate Platelet Morphology Normal Hypochromasia 3+ Anisocytosis 1+ Height (Feet): 5 Height (Inches): 4.00 Weight (Pounds): 263 Objective PE General Appearance: mild distress, moderate distress Lines, tubes and drains: peripheral HEENT: EOMI, thrush, tonsils swollen ++trach Neck: normal inspection Respiratory/Chest: decreased breath sounds, accessory muscle use Cardiovascular/Chest: tachycardia Abdomen: soft, no organomegaly, no mass, ++ peg Extremities: other Skin Exam: warm/dry, rash Neurologic: alert, responsive Zacarias Khoury MD January 06, 2019 11:59
[2019-01-06 12:00] VITALS: BP 154/82
--- NOTE | 2019-01-06 14:43 | Podiatric Progress Note ---
Assessment/Plan Patient Gregg Restrepo is a 68 year old male who was admitted on Oct 31, 2018 at 19:13 with Problems: (1) CHF (congestive heart failure) (2) DM (diabetes mellitus) (3) Foot ulcer (4) ESRD (end stage renal disease) on dialysis Assessment/Plan surgical excisional debridement was done by bedside to the level of fat pad utilizing 10 surgical blade and curette. wound Vac was applied Rx Santyl with Vac application. Patient will be followed. Subjective Allergies: Coded Allergies: CEPHALEXIN (Unverified Allergy, Unknown, 02/24/14) SULFAMETHOXAZOLE (Unverified Allergy, Unknown, 02/24/14) TRIMETHOPRIM (Unverified Allergy, Unknown, 02/24/14) Subjective f/u R heel wound patient has been on the wound vac with little to no drainage. Objective Exam Last 24 Hour Vital Signs Date Time Temp Pulse Resp B/P (MAP) Pulse Ox O2 Delivery O2 Flow Rate FiO2 01/06/19 13:10 62 25 40 01/06/19 12:00 98.1 74 24 154/82 (106) 100 01/06/19 12:00 Mechanical Ventilator 01/06/19 12:00 40 01/06/19 12:00 75 01/06/19 10:42 68 25 40 01/06/19 08:59 72 25 40 01/06/19 08:00 Mechanical Ventilator 01/06/19 08:00 97.5 74 24 163/77 (105) 100 01/06/19 08:00 40 01/06/19 07:26 74 01/06/19 07:01 80 25 40 01/06/19 04:55 78 23 40 01/06/19 04:00 40 01/06/19 04:00 Mechanical Ventilator 01/06/19 03:24 79 01/06/19 03:07 77 21 40 01/06/19 00:49 80 26 40 01/06/19 00:00 98.7 88 26 108/55 (72) 100 01/06/19 00:00 Mechanical Ventilator 01/05/19 23:41 80 01/05/19 22:51 82 22 40 01/05/19 20:36 75 25 40 01/05/19 20:00 98.4 82 23 99/48 (65) 100 01/05/19 20:00 40 01/05/19 20:00 Mechanical Ventilator 01/05/19 19:04 80 01/05/19 18:55 78 30 40 01/05/19 17:43 152/76 01/05/19 16:43 81 30 40 01/05/19 16:00 40 01/05/19 16:00 Mechanical Ventilator 01/05/19 16:00 99.2 83 23 152/76 (101) 99 01/05/19 15:20 81 35 40 01/05/19 15:17 89 01/05/19 14:59 76 33 40 Laboratory Tests Test 01/06/19 04:15 White Blood Count 8.5 K/UL (4.8-10.8) Red Blood Count 3.07 M/UL (4.70-6.10) L Hemoglobin 7.7 G/DL (14.2-18.0) L Hematocrit 24.5 % (42.0-52.0) L Mean Corpuscular Volume 80 FL (80-99) Mean Corpuscular Hemoglobin 25.0 PG (27.0-31.0) L Mean Corpuscular Hemoglobin Concent 31.4 G/DL (32.0-36.0) L Red Cell Distribution Width 16.5 % (11.6-14.8) H Platelet Count 178 K/UL (150-450) Mean Platelet Volume 7.0 FL (6.5-10.1) Neutrophils (%) (Auto) % (45.0-75.0) Lymphocytes (%) (Auto) % (20.0-45.0) Monocytes (%) (Auto) % (1.0-10.0) Eosinophils (%) (Auto) % (0.0-3.0) Basophils (%) (Auto) % (0.0-2.0) Differential Total Cells Counted 100 Neutrophils % (Manual) 77 % (45-75) H Lymphocytes % (Manual) 13 % (20-45) L Monocytes % (Manual) 10 % (1-10) Eosinophils % (Manual) 0 % (0-3) Basophils % (Manual) 0 % (0-2) Band Neutrophils 0 % (0-8) Platelet Estimate Adequate Platelet Morphology Normal Hypochromasia 3+ Anisocytosis 1+ Sodium Level 130 MMOL/L (136-145) L Potassium Level 4.2 MMOL/L (3.5-5.1) Chloride Level 90 MMOL/L (98-107) L Carbon Dioxide Level 29 MMOL/L (21-32) Anion Gap 11 mmol/L (5-15) Blood Urea Nitrogen 84 mg/dL (7-18) H Creatinine 5.8 MG/DL (0.55-1.30) H Estimat Glomerular Filtration Rate 9.8 mL/min (>60) Glucose Level 108 MG/DL (74-106) H Calcium Level 8.7 MG/DL (8.5-10.1) Total Bilirubin 0.4 MG/DL (0.2-1.0) Aspartate Amino Transf (AST/SGOT) 15 U/L (15-37) Alanine Aminotransferase (ALT/SGPT) 6 U/L (12-78) L Alkaline Phosphatase 154 U/L (46-116) H Total Protein 6.1 G/DL (6.4-8.2) L Albumin 1.9 G/DL (3.4-5.0) L Globulin 4.2 g/dL Albumin/Globulin Ratio 0.5 (1.0-2.7) L Microbiology Date/Time Source Procedure Growth Status 11/14/18 15:30 Blood Blood Culture - Final NO GROWTH AFTER 5 DAYS Complete 01/01/19 15:30 Pleural Fluid Gram Stain - Final Complete 01/01/19 15:30 Pleural Fluid Body Fluid Culture - Final NO GROWTH Complete 10/31/18 20:39 Wound Gram Stain - Final Complete 10/31/18 20:39 Wound Culture - Final Staphylococcus Aureus - Mrsa Complete 10/31/18 21:00 Nasal Nares MRSA Culture - Final Staphylococcus Aureus - Mrsa Complete 12/28/18 19:30 Stool Clostridium difficile Toxin Assay - Final Complete 12/24/18 12:00 Ankle Right Gram Stain - Final Complete 12/24/18 12:00 Wound Culture - Final Staphylococcus Aureus - Mrsa Diphtheroids Escherichia Coli Complete Dermatological Dermatological Narrative R heel ulcer noted to be smaller in diameter healing and more superficial compare to the previous visit. no drainage or discharge noted, no pus, ulceration base noted to be 50 % fibrotic. Dhruv Huizar DPM January 06, 2019 14:43
--- NOTE | 2019-01-06 14:47 | Cardiac Electrophysiology PN ---
Assessment/Plan Assessment/Plan 1. Troponin leak due to renal failure. No CP or SOB 2. CAD. S/P CABG. On Coreg, aspirin and Lipitor 3. NSVT in setting of old WI and CABG. EF 55%. Continue Coreg 4. CHF and right pleural effusion. On hemodialysis. S/P Thoracentesis 5. S/P Right sided [employer] dual chamber pacemaker with Nl Fx. 6. End-stage renal disease, on hemodialysis per Dr. Stevens S/P Fistulogram by Dr. Salmeron 7. Multilevel AOD LE's with non-healing Right foot ulcer. Had abdominal angiogram per Dr Salmeron Antibiotic per Dr. Landis. FU by Dr. Huizar S/P peripheral intervention by Dr. Salmeron 12/22/18 Right foot on Wound-Vac 8. History of liver transplant on Prograf 9. Respiratory failure, S/P tracheostomy. 10. Pleural effusion. s/p 2300 cc thoracentesis 01/01/[address] Mendoza 11. Dysphagia, S/P PEG 12. Low BP. Resolved. Off Midodrine XIOMARA RN Subjective Subjective Comfortable in NAD. Awaiting SNIF placement Objective Last 24 Hour Vital Signs Date Time Temp Pulse Resp B/P (MAP) Pulse Ox O2 Delivery O2 Flow Rate FiO2 01/06/19 13:10 62 25 40 01/06/19 12:00 98.1 74 24 154/82 (106) 100 01/06/19 12:00 Mechanical Ventilator 01/06/19 12:00 40 01/06/19 12:00 75 01/06/19 10:42 68 25 40 01/06/19 08:59 72 25 40 01/06/19 08:00 Mechanical Ventilator 01/06/19 08:00 97.5 74 24 163/77 (105) 100 01/06/19 08:00 40 01/06/19 07:26 74 01/06/19 07:01 80 25 40 01/06/19 04:55 78 23 40 01/06/19 04:00 40 01/06/19 04:00 Mechanical Ventilator 01/06/19 03:24 79 01/06/19 03:07 77 21 40 01/06/19 00:49 80 26 40 01/06/19 00:00 98.7 88 26 108/55 (72) 100 01/06/19 00:00 Mechanical Ventilator 01/05/19 23:41 80 01/05/19 22:51 82 22 40 01/05/19 20:36 75 25 40 01/05/19 20:00 98.4 82 23 99/48 (65) 100 01/05/19 20:00 40 01/05/19 20:00 Mechanical Ventilator 01/05/19 19:04 80 01/05/19 18:55 78 30 40 01/05/19 17:43 152/76 01/05/19 16:43 81 30 40 01/05/19 16:00 40 01/05/19 16:00 Mechanical Ventilator 01/05/19 16:00 99.2 83 23 152/76 (101) 99 01/05/19 15:20 81 35 40 01/05/19 15:17 89 01/05/19 14:59 76 33 40 Intake and Output 01/05/19 01/06/19 19:00 07:00 Intake Total 740 ml 480 ml Balance 740 ml 480 ml Free Water 200 ml 60 ml Tube Feeding 540 ml 360 ml Other 60 ml # Bowel Movements 1 7 Laboratory Tests Test 01/06/19 04:15 White Blood Count 8.5 K/UL (4.8-10.8) Red Blood Count 3.07 M/UL (4.70-6.10) L Hemoglobin 7.7 G/DL (14.2-18.0) L Hematocrit 24.5 % (42.0-52.0) L Mean Corpuscular Volume 80 FL (80-99) Mean Corpuscular Hemoglobin 25.0 PG (27.0-31.0) L Mean Corpuscular Hemoglobin Concent 31.4 G/DL (32.0-36.0) L Red Cell Distribution Width 16.5 % (11.6-14.8) H Platelet Count 178 K/UL (150-450) Mean Platelet Volume 7.0 FL (6.5-10.1) Neutrophils (%) (Auto) % (45.0-75.0) Lymphocytes (%) (Auto) % (20.0-45.0) Monocytes (%) (Auto) % (1.0-10.0) Eosinophils (%) (Auto) % (0.0-3.0) Basophils (%) (Auto) % (0.0-2.0) Differential Total Cells Counted 100 Neutrophils % (Manual) 77 % (45-75) H Lymphocytes % (Manual) 13 % (20-45) L Monocytes % (Manual) 10 % (1-10) Eosinophils % (Manual) 0 % (0-3) Basophils % (Manual) 0 % (0-2) Band Neutrophils 0 % (0-8) Platelet Estimate Adequate Platelet Morphology Normal Hypochromasia 3+ Anisocytosis 1+ Sodium Level 130 MMOL/L (136-145) L Potassium Level 4.2 MMOL/L (3.5-5.1) Chloride Level 90 MMOL/L (98-107) L Carbon Dioxide Level 29 MMOL/L (21-32) Anion Gap 11 mmol/L (5-15) Blood Urea Nitrogen 84 mg/dL (7-18) H Creatinine 5.8 MG/DL (0.55-1.30) H Estimat Glomerular Filtration Rate 9.8 mL/min (>60) Glucose Level 108 MG/DL (74-106) H Calcium Level 8.7 MG/DL (8.5-10.1) Total Bilirubin 0.4 MG/DL (0.2-1.0) Aspartate Amino Transf (AST/SGOT) 15 U/L (15-37) Alanine Aminotransferase (ALT/SGPT) 6 U/L (12-78) L Alkaline Phosphatase 154 U/L (46-116) H Total Protein 6.1 G/DL (6.4-8.2) L Albumin 1.9 G/DL (3.4-5.0) L Globulin 4.2 g/dL Albumin/Globulin Ratio 0.5 (1.0-2.7) L Objective HEAD AND NECK: No JVD. Tracheostomy intact LUNGS: Clear CARDIOVASCULAR: Irregular S1 and S2 with no gallop. Sternotomy is intact Pacemaker in the right subclavian ABDOMEN: Soft. PEG in place EXTREMITIES: 1+ pitting edema. Right heel in dressing and connected to WoundVac Shivam Sharpe MD January 06, 2019 14:47
--- NOTE | 2019-01-06 14:57 | Nephrology Progress Note ---
Assessment/Plan Problem List: (1) ESRD (end stage renal disease) on dialysis (2) Foot ulcer (3) CHF (congestive heart failure) Assessment: Ej Fx 20 % (4) Pacemaker (5) Acute respiratory failure Assessment: with Co2 retention (6) G-tube site cellulitis Assessment ESRD with high K and SOB on admit Foot ulcer, likely infected High Troponin likely NSTMI Pacer , Pleural effusion s/p CABGS s/p Liver transplant Plan dialysis 01/04 and 01/06 labs before HD noted BP low- improved on midodrine per consultants, GI GT site infection, topical antibiotic Neuro note appreciated placement in process vascular esteban regarding heel ulcer per Dr Mcgill pain med change to dilaudid GT Now has tracheostomy and PEG Adjust BP meds add nitro paste TID Antibiotics by ID per cardio and ID Podiatry and Vascular surgical fu ? DC planning? Subjective ROS Limited/Unobtainable: No Constitutional: Reports: malaise Objective Objective Last 24 Hour Vital Signs Date Time Temp Pulse Resp B/P (MAP) Pulse Ox O2 Delivery O2 Flow Rate FiO2 01/06/19 13:10 62 25 40 01/06/19 12:00 98.1 74 24 154/82 (106) 100 01/06/19 12:00 Mechanical Ventilator 01/06/19 12:00 40 01/06/19 12:00 75 01/06/19 10:42 68 25 40 01/06/19 08:59 72 25 40 01/06/19 08:00 Mechanical Ventilator 01/06/19 08:00 97.5 74 24 163/77 (105) 100 01/06/19 08:00 40 01/06/19 07:26 74 01/06/19 07:01 80 25 40 01/06/19 04:55 78 23 40 01/06/19 04:00 40 01/06/19 04:00 Mechanical Ventilator 01/06/19 03:24 79 01/06/19 03:07 77 21 40 01/06/19 00:49 80 26 40 01/06/19 00:00 98.7 88 26 108/55 (72) 100 01/06/19 00:00 Mechanical Ventilator 01/05/19 23:41 80 01/05/19 22:51 82 22 40 01/05/19 20:36 75 25 40 01/05/19 20:00 98.4 82 23 99/48 (65) 100 01/05/19 20:00 40 01/05/19 20:00 Mechanical Ventilator 01/05/19 19:04 80 01/05/19 18:55 78 30 40 01/05/19 17:43 152/76 01/05/19 16:43 81 30 40 01/05/19 16:00 40 01/05/19 16:00 Mechanical Ventilator 01/05/19 16:00 99.2 83 23 152/76 (101) 99 01/05/19 15:20 81 35 40 01/05/19 15:17 89 01/05/19 14:59 76 33 40 Intake and Output 01/05/19 01/06/19 19:00 07:00 Intake Total 740 ml 480 ml Balance 740 ml 480 ml Free Water 200 ml 60 ml Tube Feeding 540 ml 360 ml Other 60 ml # Bowel Movements 1 7 Laboratory Tests 01/06/19 04:15: White Blood Count 8.5, Red Blood Count 3.07L, Hemoglobin 7.7L, Hematocrit 24.5L , Mean Corpuscular Volume 80, Mean Corpuscular Hemoglobin 25.0L, Mean Corpuscular Hemoglobin Concent 31.4L, Red Cell Distribution Width 16.5H, Platelet Count 178, Mean Platelet Volume 7.0, Neutrophils (%) (Auto) , Lymphocytes (%) (Auto) , Monocytes (%) (Auto) , Eosinophils (%) (Auto) , Basophils (%) (Auto) , Differential Total Cells Counted 100, Neutrophils % ( Manual) 77H, Lymphocytes % (Manual) 13L, Monocytes % (Manual) 10, Eosinophils % (Manual) 0, Basophils % (Manual) 0, Band Neutrophils 0, Platelet Estimate Adequate, Platelet Morphology Normal, Hypochromasia 3+, Anisocytosis 1+, Sodium Level 130L, Potassium Level 4.2, Chloride Level 90L, Carbon Dioxide Level 29, Anion Gap 11, Blood Urea Nitrogen 84H, Creatinine 5.8H, Estimat Glomerular Filtration Rate 9.8, Glucose Level 108H, Calcium Level 8.7, Total Bilirubin 0.4 , Aspartate Amino Transf (AST/SGOT) 15, Alanine Aminotransferase (ALT/SGPT) 6L, Alkaline Phosphatase 154H, Total Protein 6.1L, Albumin 1.9L, Globulin 4.2, Albumin/Globulin Ratio 0.5L Height (Feet): 5 Height (Inches): 4.00 Weight (Pounds): 263 General Appearance: no apparent distress Objective no other change Nakul Stevens MD January 06, 2019 14:57
[2019-01-06] MEDS ORDERED: HydrALAZINE 25mg tab GT PRN (15:00)
[2019-01-06 16:00] VITALS: BP 135/82
[2019-01-06] MEDS ORDERED: PPD Tuberculin Skin Test 5TU IDERMAL ONE (17:00)
[2019-01-06] MEDS: HYDROcodone/Acetamin 5/325 tab ORAL PRN ×2 (19:21→23:34)
[2019-01-06 20:00] VITALS: BP 153/86
[2019-01-06] MEDS: Epoetin Alfa-EPBX(ESRD on dialysis)10,000 unit/ml vial SUBQ SCH (20:33)
--- NOTE | 2019-01-06 20:39 | Infectious Diseases Prog Note ---
Assessment/Plan Problems: (1) Foot ulcer Assessment & Plan: with MRSA grew out of it in the past, S/P vancomycin treatment with HD for two weeks, had vascular eval with revascularization to the right leg , S/P ulcer resection by manager trainee . deep ulcer culture grew MRSA and E.coli with diphtheroids , possible colonization , with no evidence of active infection as per discussion with podiatry , no need to be started on antibiotics for now , will continue to monitor clinically and make recommendations as necessary . bone scan ruled out osteomyelitis of the heel before, couldn't do an MRI since on the vent . continue local wound care as per manager trainee . (2) Thrush, oral Assessment & Plan: continue local nystatin as needed , S/P micafungin for three weeks empirically (3) HCV antibody positive Assessment & Plan: no evidence of active infection, with undetectable viral load , suspect due to previous infection , cleared, S/P liver transplant . (4) DM (diabetes mellitus) Assessment & Plan: recommend tight glycemic control to keep blood glucose between 100-140 (5) CHF (congestive heart failure) Assessment & Plan: on HD , renal is following, monitor daily weight (6) Severe tongue swelling Assessment & Plan: improving , s/p tracheostomy to protect his airway since respiratory status worsened . now improving, pulmonary is following (7) Pleural effusion Assessment & Plan: recurrent on the right, with lung collapse , S/P thoracentesis X 3 now with removal of 2.3 liters of clear fluids on 12/31/18 . await fluids culture and gram stain, with PH and Glucose level . PREVIOUS culture were negative with negative cytology. pulmonary is following (8) Ascites Assessment & Plan: S/P paracentesis with removal of 4.1 liters of fluids, culture so far is negative Assessment/Plan will continue to monitor patient on daily basis and make recommendations as necessary since he is high risk for recurrent infection Subjective Constitutional: Reports: no symptoms HEENT: Reports: no symptoms Respiratory: Reports: no symptoms Breasts: Reports: no symptoms Cardiovascular: Reports: no symptoms Gastrointestinal/Abdominal: Reports: no symptoms Genitourinary: Reports: no symptoms Neurologic: Reports: no symptoms Psychiatric: Reports: no symptoms Skin: Reports: no symptoms Endocrine: Reports: no symptoms Hematologic: Reports: no symptoms Musculoskeletal: Reports: no symptoms Allergies: Coded Allergies: CEPHALEXIN (Unverified Allergy, Unknown, 02/24/14) SULFAMETHOXAZOLE (Unverified Allergy, Unknown, 02/24/14) TRIMETHOPRIM (Unverified Allergy, Unknown, 02/24/14) Subjective he was comfortable, lying in bed, denied any fever or chills, no significant secretions, no SOB . has heel pain at the surgery site with wound VAC in place , but no draining coming out . hard of hearing, son at the bedside Objective Vital Signs Last 24 Hour Vital Signs Date Time Temp Pulse Resp B/P (MAP) Pulse Ox O2 Delivery O2 Flow Rate FiO2 01/06/19 20:00 97.3 80 25 153/86 (108) 100 01/06/19 19:30 65 21 40 01/06/19 17:00 67 24 40 01/06/19 16:00 98.1 76 22 135/82 (99) 100 01/06/19 16:00 40 01/06/19 16:00 76 01/06/19 16:00 Mechanical Ventilator 01/06/19 15:24 78 24 40 01/06/19 13:10 62 25 40 01/06/19 12:00 98.1 74 24 154/82 (106) 100 01/06/19 12:00 Mechanical Ventilator 01/06/19 12:00 40 01/06/19 12:00 75 01/06/19 10:42 68 25 40 01/06/19 08:59 72 25 40 01/06/19 08:00 Mechanical Ventilator 01/06/19 08:00 97.5 74 24 163/77 (105) 100 01/06/19 08:00 40 01/06/19 07:26 74 01/06/19 07:01 80 25 40 01/06/19 04:55 78 23 40 01/06/19 04:00 40 01/06/19 04:00 Mechanical Ventilator 01/06/19 03:24 79 01/06/19 03:07 77 21 40 01/06/19 00:49 80 26 40 01/06/19 00:00 98.7 88 26 108/55 (72) 100 01/06/19 00:00 Mechanical Ventilator 01/05/19 23:41 80 01/05/19 22:51 82 22 40 Height (Feet): 5 Height (Inches): 4.00 Weight (Pounds): 263 General Appearance: WD/WN, no acute distress HEENT: normocephalic, atraumatic, anicteric, mucous membranes moist, PERRL Respiratory/Chest: chest wall non-tender, lungs clear, normal breath sounds, no respiratory distress, no accessory muscle use Cardiovascular: normal peripheral pulses, normal rate, regular rhythm, no gallop/murmur, no JVD Abdomen: normal bowel sounds, soft, non tender, no organomegaly, non distended , no mass, no scars Genitourinary: normal external genitalia Extremities: no cyanosis, no clubbing Skin: no rash, no lesions, no ulcers 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: director heart 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 normal, alert, responsive Laboratory Tests Test 01/06/19 04:15 01/06/19 16:00 White Blood Count 8.5 K/UL (4.8-10.8) Red Blood Count 3.07 M/UL (4.70-6.10) L Hemoglobin 7.7 G/DL (14.2-18.0) L Hematocrit 24.5 % (42.0-52.0) L Mean Corpuscular Volume 80 FL (80-99) Mean Corpuscular Hemoglobin 25.0 PG (27.0-31.0) L Mean Corpuscular Hemoglobin Concent 31.4 G/DL (32.0-36.0) L Red Cell Distribution Width 16.5 % (11.6-14.8) H Platelet Count 178 K/UL (150-450) Mean Platelet Volume 7.0 FL (6.5-10.1) Neutrophils (%) (Auto) % (45.0-75.0) Lymphocytes (%) (Auto) % (20.0-45.0) Monocytes (%) (Auto) % (1.0-10.0) Eosinophils (%) (Auto) % (0.0-3.0) Basophils (%) (Auto) % (0.0-2.0) Differential Total Cells Counted 100 Neutrophils % (Manual) 77 % (45-75) H Lymphocytes % (Manual) 13 % (20-45) L Monocytes % (Manual) 10 % (1-10) Eosinophils % (Manual) 0 % (0-3) Basophils % (Manual) 0 % (0-2) Band Neutrophils 0 % (0-8) Platelet Estimate Adequate Platelet Morphology Normal Hypochromasia 3+ Anisocytosis 1+ Sodium Level 130 MMOL/L (136-145) L Potassium Level 4.2 MMOL/L (3.5-5.1) Chloride Level 90 MMOL/L (98-107) L Carbon Dioxide Level 29 MMOL/L (21-32) Anion Gap 11 mmol/L (5-15) Blood Urea Nitrogen 84 mg/dL (7-18) H Creatinine 5.8 MG/DL (0.55-1.30) H Estimat Glomerular Filtration Rate 9.8 mL/min (>60) Glucose Level 108 MG/DL (74-106) H Calcium Level 8.7 MG/DL (8.5-10.1) Total Bilirubin 0.4 MG/DL (0.2-1.0) Aspartate Amino Transf (AST/SGOT) 15 U/L (15-37) Alanine Aminotransferase (ALT/SGPT) 6 U/L (12-78) L Alkaline Phosphatase 154 U/L (46-116) H Total Protein 6.1 G/DL (6.4-8.2) L Albumin 1.9 G/DL (3.4-5.0) L Globulin 4.2 g/dL Albumin/Globulin Ratio 0.5 (1.0-2.7) L Hepatitis A IgM Antibody Pending Hepatitis B Surface Antigen Pending Hepatitis B Surface Antibody, Quant Pending Hepatitis B Core IgM Antibody Pending Hepatitis C Antibody Pending Current Medications Medications (Trade) Dose Ordered Sig/Aleks Route PRN Reason Start Time Stop Time Status Last Admin Dose Admin Acetaminophen (Tylenol) 650 mg Q6H PRN GT Mild Pain/Temp > 100.5 12/21/18 16:00 01/20/19 15:59 01/05/19 20:46 Acetaminophen/ Hydrocodone Bitart ([place] 5/325) 1 tab Q4H PRN ORAL Moderate Pain (Pain Scale 4-6) 01/05/19 14:30 01/12/19 14:29 01/06/19 19:21 Apixaban (Eliquis) 2.5 mg BID GT 01/01/19 21:00 01/31/19 20:59 01/06/19 18:15 Collagenase (Santyl) 1 applic DAILY TOPIC 12/29/18 09:00 01/28/19 08:59 01/06/19 09:02 Dextrose (Dextrose 50%) 25 ml Q30M PRN IV Hypoglycemia 12/31/18 23:00 01/30/19 22:59 Dextrose (Dextrose 50%) 50 ml Q30M PRN IV Hypoglycemia 12/31/18 23:00 01/30/19 22:59 Epoetin Vini (Epoetin Vini(ESRD on dialysis)) 10,000 unit FRI- SUBQ 01/06/19 21:00 02/05/19 20:59 01/06/19 20:33 Escitalopram Oxalate (Lexapro) 20 mg DAILY GT 01/05/19 09:00 02/04/19 08:59 01/06/19 09:01 Hydralazine HCl (Apresoline) 25 mg Q4H PRN GT bp over 160 syst 01/06/19 15:00 02/05/19 14:59 Insulin Aspart (NovoLOG) EVERY 6 HOURS SUBQ 01/01/19 00:00 01/31/19 00:00 01/05/19 23:52 Metoclopramide HCl (Reglan) 5 mg Q6H PRN IVP Nausea & Vomiting 12/30/18 17:30 01/29/19 17:29 01/05/19 20:45 Mirtazapine (Remeron) 15 mg BEDTIME GT 12/21/18 21:00 01/20/19 20:59 01/06/19 20:33 Tacrolimus (Prograf) 2 mg MoWeFr@0000,1200 ORAL 12/28/18 00:00 01/27/19 00:00 01/06/19 11:45 Tacrolimus (Prograf) 2 mg SuTuThSa@0900,2100 ORAL 12/26/18 21:00 01/25/19 20:59 01/05/19 20:45 Francois Landis M.D. January 06, 2019 20:39
[2019-01-07] VITALS: BP 100/77
[2019-01-07 04:00] VITALS: BP 113/87
[2019-01-07 05:07] LABS: BASOPHILS % (AUTO) 0.7 % (0.0-2.0); HEMATOCRIT 28.8 % (42.0-52.0); HEMOGLOBIN 9.3 G/DL (14.2-18.0); LYMPHOCYTES % (AUTO) 12.6 % (20.0-45.0); MEAN CORPUSCULAR VOLUME 80 FL (80-99); MONOCYTES % (AUTO) 9.9 % (1.0-10.0); NEUTROPHILS % (AUTO) 76.8 % (45.0-75.0); PLATELET COUNT 189 K/UL (150-450); RED BLOOD COUNT 3.59 M/UL (4.70-6.10); RED CELL DISTRIBUTION WIDTH 15.8 % (11.6-14.8); WHITE BLOOD COUNT 7.7 K/UL (4.8-10.8)
[2019-01-07 05:23] LABS: ANION GAP 12 mmol/L (5-15); BLOOD UREA NITROGEN 67 mg/dL (7-18); CALCIUM 8.6 MG/DL (8.5-10.1); CARBON DIOXIDE 29 MMOL/L (21-32); CHLORIDE 92 MMOL/L (98-107); CREATININE 5.1 MG/DL (0.55-1.30); POTASSIUM 4.4 MMOL/L (3.5-5.1); SODIUM 133 MMOL/L (136-145)
[2019-01-07 05:39] LABS: ALANINE AMINOTRANSFERASE 6 U/L (12-78); ALKALINE PHOSPHATASE 170 U/L (46-116); ASPARTATE AMINO TRANSFERASE 15 U/L (15-37); BILIRUBIN,DIRECT 0.2 MG/DL (0.0-0.3); BILIRUBIN,TOTAL 0.5 MG/DL (0.2-1.0); GAMMA GLUTAMYL TRANSPEPTIDASE 54 U/L (5-85); PHOSPHORUS 4.6 MG/DL (2.5-4.9)
[2019-01-07] MEDS: HYDROcodone/Acetamin 5/325 tab ORAL PRN ×2 (05:49→23:35)
[2019-01-07] MEDS: NovoLOG Insulin Flexpen SUBQ SCH ×4 (05:51→23:36)
[2019-01-07 08:00] VITALS: BP 133/100
[2019-01-07] MEDS: Eliquis 2.5mg tablet GT SCH ×2 (08:13→17:54)
--- NOTE | 2019-01-07 10:21 | GI Progress Note ---
Assessment/Plan Problems: (1) Foot ulcer ICD Codes: L97.509 - Non-pressure chronic ulcer of other part of unspecified foot with unspecified severity SNOMED: 49103641 Qualifiers: Qualified Codes: L97.511 - Non-pressure chronic ulcer of other part of right foot limited to breakdown of skin (2) DM (diabetes mellitus) ICD Codes: E11.9 - Type 2 diabetes mellitus without complications SNOMED: 43654301 (3) Transplant ICD Codes: Z94.9 - Transplanted organ and tissue status, unspecified SNOMED: 152431344 Status: stable Status Narrative Discussed with Dr. Escalera Assessment/Plan History of liver transplant, currently on Prograf History of cholecystectomy status post tracheostomy and PEG Infected G-tube site, fu ID recs C. difficile negative would care cx >> GRAM NEGATIVE BACILLUS CT AP reviewed, Moderate to large right pleural effusion. Moderate Ascites. s/p Paracentesis yielding 4.1 yield, r/o SBP >> negative for malignant cells Status post right thoracentesis yielding 2.1 L >> negative for malignant cells Continue G-tube feedings GT site care BID/prn topical abx around GT site per ID HD per nephro cont tacrolimus prn transfusions ppi zofran prn Titrate bowel regimen, currently having diarrhea >> send for cdiff Imodium prn, Lomotil for persistent diarrhea follow labs supportive care The patient was seen and examined at bedside and all new and available data was reviewed in the patients chart. I agree with the above findings, impression and plan. (Patient seen earlier today. Signature stamp does not reflect patient encounter time.). - Jorge Escalera MD Subjective Subjective Limited abdominal distention and discomfort improved diarrhea Objective Last 24 Hour Vital Signs Date Time Temp Pulse Resp B/P (MAP) Pulse Ox O2 Delivery O2 Flow Rate FiO2 01/07/19 09:21 70 24 40 01/07/19 08:00 97.7 72 24 133/100 (111) 100 01/07/19 08:00 40 01/07/19 08:00 Mechanical Ventilator 01/07/19 07:36 68 24 40 01/07/19 07:29 74 01/07/19 05:30 78 28 40 01/07/19 04:00 40 01/07/19 04:00 Mechanical Ventilator 01/07/19 04:00 97.5 80 24 113/87 (96) 100 01/07/19 03:30 71 21 40 01/07/19 03:25 80 01/07/19 01:08 72 23 40 01/07/19 00:00 97.7 80 26 100/77 (85) 100 01/07/19 00:00 Mechanical Ventilator 01/06/19 23:45 80 01/06/19 23:21 77 25 40 01/06/19 21:30 62 20 40 01/06/19 20:00 97.3 80 25 153/86 (108) 100 01/06/19 20:00 40 01/06/19 20:00 Mechanical Ventilator 01/06/19 19:30 65 21 40 01/06/19 19:28 81 01/06/19 17:00 67 24 40 01/06/19 16:00 98.1 76 22 135/82 (99) 100 01/06/19 16:00 40 01/06/19 16:00 76 01/06/19 16:00 Mechanical Ventilator 01/06/19 15:24 78 24 40 01/06/19 13:10 62 25 40 01/06/19 12:00 98.1 74 24 154/82 (106) 100 01/06/19 12:00 Mechanical Ventilator 01/06/19 12:00 40 01/06/19 12:00 75 01/06/19 10:42 68 25 40 Intake and Output 01/06/19 01/07/19 19:00 07:00 Intake Total 510 ml 130 ml Output Total 3000 ml Balance -2490 ml 130 ml Free Water 90 ml Tube Feeding 200 ml 40 ml Blood Product 250 ml Other 60 ml Peritoneal Dialysis UF 3000 ml # Bowel Movements 1 5 Laboratory Tests Test 01/06/19 16:00 01/07/19 03:25 Hepatitis A IgM Antibody Negative (Negative) Hepatitis B Surface Antigen Pending Hepatitis B Surface Antibody, Quant Pending Hepatitis B Core IgM Antibody Negative (Negative) Hepatitis C Antibody Pending White Blood Count 7.7 K/UL (4.8-10.8) Red Blood Count 3.59 M/UL (4.70-6.10) L Hemoglobin 9.3 G/DL (14.2-18.0) L Hematocrit 28.8 % (42.0-52.0) L Mean Corpuscular Volume 80 FL (80-99) Mean Corpuscular Hemoglobin 25.9 PG (27.0-31.0) L Mean Corpuscular Hemoglobin Concent 32.2 G/DL (32.0-36.0) Red Cell Distribution Width 15.8 % (11.6-14.8) H Platelet Count 189 K/UL (150-450) Mean Platelet Volume 7.6 FL (6.5-10.1) Neutrophils (%) (Auto) 76.8 % (45.0-75.0) H Lymphocytes (%) (Auto) 12.6 % (20.0-45.0) L Monocytes (%) (Auto) 9.9 % (1.0-10.0) Eosinophils (%) (Auto) 0.0 % (0.0-3.0) Basophils (%) (Auto) 0.7 % (0.0-2.0) Sodium Level 133 MMOL/L (136-145) L Potassium Level 4.4 MMOL/L (3.5-5.1) Chloride Level 92 MMOL/L (98-107) L Carbon Dioxide Level 29 MMOL/L (21-32) Anion Gap 12 mmol/L (5-15) Blood Urea Nitrogen 67 mg/dL (7-18) H Creatinine 5.1 MG/DL (0.55-1.30) H Estimat Glomerular Filtration Rate 11.4 mL/min (>60) Glucose Level 86 MG/DL (74-106) Uric Acid 4.6 MG/DL (2.6-7.2) Calcium Level 8.6 MG/DL (8.5-10.1) Phosphorus Level 4.6 MG/DL (2.5-4.9) Magnesium Level 2.2 MG/DL (1.8-2.4) Total Bilirubin 0.5 MG/DL (0.2-1.0) Direct Bilirubin 0.2 MG/DL (0.0-0.3) Gamma Glutamyl Transpeptidase 54 U/L (5-85) Aspartate Amino Transf (AST/SGOT) 15 U/L (15-37) Alanine Aminotransferase (ALT/SGPT) 6 U/L (12-78) L Alkaline Phosphatase 170 U/L (46-116) H Total Protein 6.6 G/DL (6.4-8.2) Albumin 2.0 G/DL (3.4-5.0) L Height (Feet): 5 Height (Inches): 4.00 Weight (Pounds): 226 General Appearance: WD/WN, no apparent distress, alert Cardiovascular: normal rate Respiratory/Chest: normal breath sounds, no respiratory distress, other - Tracheostomy Abdominal Exam: normal bowel sounds, non tender, soft, GT site - Clean dry and intact Extremities: non-tender Objective Scrotal swelling Right upper extremity swelling Kelvin Briggs NP January 07, 2019 10:21
--- NOTE | 2019-01-07 10:34 | General Progress Note ---
Assessment/Plan Status: stable Assessment/Plan: #Right heel diabetic foot ulcer without osteomyelitis #PAD #Right IJ DVT -seen by Podiatry and ID -s/p Vanco x 2 weeks during HD -continue Eliquis -Vascular Surgery and Hematology following #Acute Resp hypercapnic failure s/p tracheostomy #Angioedema #Large right pleural effusion # R side trapped lung -continue trach care -Remains vent-dependant, breathing trials ongoing -Right thoracentesis 01/01/19 with 2.3 lt removed. Post procedure CXR with R trapped lung. -Pulm following #End-stage renal disease, on dialysis M-W- #RUE edema #Anasarca, ascites, scrotal edema, pleural effusion due to hypoalbuminemia -HD with UF per Nephrology -s/p PRBC tranfusion yesterday #Coronary artery disease -continue ASA, Coreg, atorvastatin -cardiology following #Type 2 DM -ISS #Acute metabolic encephalopathy -continue supportive care -Neurology following #history of chronic HCV infection #history of liver transplant -continue Prograf -GI following #Abdominal distension and ascites s/p therapeutic paracentesis -no nausea, vomiting or tenderness -continue supportive care -GI following -s/p paracentesis 12/31/18 4.1 lt #Dysphagia S/p PEG with PEG site cellulitis -s/p antibiotics per ID and GI -continue local wound care -tolerating tube feeds # FULL CODE Subjective Date patient seen: January 07, 2019 ROS Limited/Unobtainable: Yes Constitutional: Denies: fever Cardiovascular: Denies: chest pain Respiratory: Denies: cough Gastrointestinal/Abdominal: Reports: abdominal pain Allergies: Coded Allergies: CEPHALEXIN (Unverified Allergy, Unknown, 02/24/14) SULFAMETHOXAZOLE (Unverified Allergy, Unknown, 02/24/14) TRIMETHOPRIM (Unverified Allergy, Unknown, 02/24/14) Subjective Medicine follow up for acute resp failure, PAD, right heel infected DFU, ESRD, anasarca secondary to hypoalbuminemia, right IJ DVT. S/p 4 liter paracentesis and 2 liter thoracentesis No new issues or complaints overnight. No new issues per nursing. Objective Last 24 Hour Vital Signs Date Time Temp Pulse Resp B/P (MAP) Pulse Ox O2 Delivery O2 Flow Rate FiO2 01/07/19 09:21 70 24 40 01/07/19 08:00 97.7 72 24 133/100 (111) 100 01/07/19 08:00 40 01/07/19 08:00 Mechanical Ventilator 01/07/19 07:36 68 24 40 01/07/19 07:29 74 01/07/19 05:30 78 28 40 01/07/19 04:00 40 01/07/19 04:00 Mechanical Ventilator 01/07/19 04:00 97.5 80 24 113/87 (96) 100 01/07/19 03:30 71 21 40 01/07/19 03:25 80 01/07/19 01:08 72 23 40 01/07/19 00:00 97.7 80 26 100/77 (85) 100 01/07/19 00:00 Mechanical Ventilator 01/06/19 23:45 80 01/06/19 23:21 77 25 40 01/06/19 21:30 62 20 40 01/06/19 20:00 97.3 80 25 153/86 (108) 100 01/06/19 20:00 40 01/06/19 20:00 Mechanical Ventilator 01/06/19 19:30 65 21 40 01/06/19 19:28 81 01/06/19 17:00 67 24 40 01/06/19 16:00 98.1 76 22 135/82 (99) 100 01/06/19 16:00 40 01/06/19 16:00 76 01/06/19 16:00 Mechanical Ventilator 01/06/19 15:24 78 24 40 01/06/19 13:10 62 25 40 01/06/19 12:00 98.1 74 24 154/82 (106) 100 01/06/19 12:00 Mechanical Ventilator 01/06/19 12:00 40 01/06/19 12:00 75 01/06/19 10:42 68 25 40 Intake and Output 01/06/19 01/07/19 19:00 07:00 Intake Total 510 ml 130 ml Output Total 3000 ml Balance -2490 ml 130 ml Free Water 90 ml Tube Feeding 200 ml 40 ml Blood Product 250 ml Other 60 ml Peritoneal Dialysis UF 3000 ml # Bowel Movements 1 5 Laboratory Tests 01/06/19 16:00: Hepatitis A IgM Antibody Negative, Hepatitis B Surface Antigen [Pending], Hepatitis B Surface Antibody, Quant [Pending], Hepatitis B Core IgM Antibody Negative, Hepatitis C Antibody [Pending] 01/07/19 03:25: White Blood Count 7.7, Red Blood Count 3.59L, Hemoglobin 9.3L, Hematocrit 28.8L , Mean Corpuscular Volume 80, Mean Corpuscular Hemoglobin 25.9L, Mean Corpuscular Hemoglobin Concent 32.2, Red Cell Distribution Width 15.8H, Platelet Count 189, Mean Platelet Volume 7.6, Neutrophils (%) (Auto) 76.8H, Lymphocytes (%) (Auto) 12.6L, Monocytes (%) (Auto) 9.9, Eosinophils (%) (Auto) 0.0, Basophils (%) (Auto) 0.7, Sodium Level 133L, Potassium Level 4.4, Chloride Level 92L, Carbon Dioxide Level 29, Anion Gap 12, Blood Urea Nitrogen 67H, Creatinine 5.1H, Estimat Glomerular Filtration Rate 11.4, Glucose Level 86, Uric Acid 4.6, Calcium Level 8.6, Phosphorus Level 4.6, Magnesium Level 2.2, Total Bilirubin 0.5, Direct Bilirubin 0.2, Gamma Glutamyl Transpeptidase 54, Aspartate Amino Transf (AST/SGOT) 15, Alanine Aminotransferase (ALT/SGPT) 6L, Alkaline Phosphatase 170H, Total Protein 6.6, Albumin 2.0L Height (Feet): 5 Height (Inches): 4.00 Weight (Pounds): 226 General Appearance: alert Neck: supple Cardiovascular: normal rate Respiratory/Chest: lungs clear, normal breath sounds Abdomen: non tender, soft Dennis Branham MD January 07, 2019 10:34
--- NOTE | 2019-01-07 11:02 | Cardiac Electrophysiology PN ---
Assessment/Plan Assessment/Plan 1. Troponin leak due to renal failure. No CP or SOB 2. CAD. S/P CABG. On Coreg, aspirin and Lipitor 3. NSVT in setting of old [place] and CABG. EF 55%. Continue Coreg 4. CHF and right pleural effusion. On hemodialysis. S/P Thoracentesis 5. S/P Right sided [employer] DDD pacemaker with Nl Fx. 6. End-stage renal disease, on hemodialysis per Dr. Stevens S/P Fistulogram by Dr. Salmeron 7. Multilevel AOD LE's with non-healing Right foot ulcer. Had abdominal angiogram per Dr Salmeron Antibiotic per Dr. Landis. FU by Dr. Huizar S/P peripheral intervention by Dr. Salmeron 12/22/18 Right foot on Wound-Vac 8. History of liver transplant on Prograf 9. Respiratory failure, S/P tracheostomy. 10. Pleural effusion. s/p 2300 cc thoracentesis 01/01/[address] Mendoza 11. Dysphagia, S/P PEG 12. Low BP. Resolved. Off Midodrine XIOMARA RN Subjective Subjective Ne events. Awaiting SNIF placement Objective Last 24 Hour Vital Signs Date Time Temp Pulse Resp B/P (MAP) Pulse Ox O2 Delivery O2 Flow Rate FiO2 01/07/19 10:47 68 32 40 01/07/19 10:46 99 01/07/19 09:21 70 24 40 01/07/19 08:00 97.7 72 24 133/100 (111) 100 01/07/19 08:00 40 01/07/19 08:00 Mechanical Ventilator 01/07/19 07:36 68 24 40 01/07/19 07:29 74 01/07/19 05:30 78 28 40 01/07/19 04:00 40 01/07/19 04:00 Mechanical Ventilator 01/07/19 04:00 97.5 80 24 113/87 (96) 100 01/07/19 03:30 71 21 40 01/07/19 03:25 80 01/07/19 01:08 72 23 40 01/07/19 00:00 97.7 80 26 100/77 (85) 100 01/07/19 00:00 Mechanical Ventilator 01/06/19 23:45 80 01/06/19 23:21 77 25 40 5/22/19 21:30 62 20 40 01/06/19 20:00 97.3 80 25 153/86 (108) 100 01/06/19 20:00 40 01/06/19 20:00 Mechanical Ventilator 01/06/19 19:30 65 21 40 01/06/19 19:28 81 01/06/19 17:00 67 24 40 01/06/19 16:00 98.1 76 22 135/82 (99) 100 01/06/19 16:00 40 01/06/19 16:00 76 01/06/19 16:00 Mechanical Ventilator 01/06/19 15:24 78 24 40 01/06/19 13:10 62 25 40 01/06/19 12:00 98.1 74 24 154/82 (106) 100 01/06/19 12:00 Mechanical Ventilator 01/06/19 12:00 40 01/06/19 12:00 75 Intake and Output 01/06/19 01/07/19 19:00 07:00 Intake Total 510 ml 130 ml Output Total 3000 ml Balance -2490 ml 130 ml Free Water 90 ml Tube Feeding 200 ml 40 ml Blood Product 250 ml Other 60 ml Peritoneal Dialysis UF 3000 ml # Bowel Movements 1 5 Laboratory Tests Test 01/06/19 16:00 01/07/19 03:25 Hepatitis A IgM Antibody Negative (Negative) Hepatitis B Surface Antigen Pending Hepatitis B Surface Antibody, Quant Pending Hepatitis B Core IgM Antibody Negative (Negative) Hepatitis C Antibody Pending White Blood Count 7.7 K/UL (4.8-10.8) Red Blood Count 3.59 M/UL (4.70-6.10) L Hemoglobin 9.3 G/DL (14.2-18.0) L Hematocrit 28.8 % (42.0-52.0) L Mean Corpuscular Volume 80 FL (80-99) Mean Corpuscular Hemoglobin 25.9 PG (27.0-31.0) L Mean Corpuscular Hemoglobin Concent 32.2 G/DL (32.0-36.0) Red Cell Distribution Width 15.8 % (11.6-14.8) H Platelet Count 189 K/UL (150-450) Mean Platelet Volume 7.6 FL (6.5-10.1) Neutrophils (%) (Auto) 76.8 % (45.0-75.0) H Lymphocytes (%) (Auto) 12.6 % (20.0-45.0) L Monocytes (%) (Auto) 9.9 % (1.0-10.0) Eosinophils (%) (Auto) 0.0 % (0.0-3.0) Basophils (%) (Auto) 0.7 % (0.0-2.0) Sodium Level 133 MMOL/L (136-145) L Potassium Level 4.4 MMOL/L (3.5-5.1) Chloride Level 92 MMOL/L (98-107) L Carbon Dioxide Level 29 MMOL/L (21-32) Anion Gap 12 mmol/L (5-15) Blood Urea Nitrogen 67 mg/dL (7-18) H Creatinine 5.1 MG/DL (0.55-1.30) H Estimat Glomerular Filtration Rate 11.4 mL/min (>60) Glucose Level 86 MG/DL (74-106) Uric Acid 4.6 MG/DL (2.6-7.2) Calcium Level 8.6 MG/DL (8.5-10.1) Phosphorus Level 4.6 MG/DL (2.5-4.9) Magnesium Level 2.2 MG/DL (1.8-2.4) Total Bilirubin 0.5 MG/DL (0.2-1.0) Direct Bilirubin 0.2 MG/DL (0.0-0.3) Gamma Glutamyl Transpeptidase 54 U/L (5-85) Aspartate Amino Transf (AST/SGOT) 15 U/L (15-37) Alanine Aminotransferase (ALT/SGPT) 6 U/L (12-78) L Alkaline Phosphatase 170 U/L (46-116) H Total Protein 6.6 G/DL (6.4-8.2) Albumin 2.0 G/DL (3.4-5.0) L Objective HEAD AND NECK: No JVD. Tracheostomy intact LUNGS: Clear CARDIOVASCULAR: Irregular S1 and S2 with no gallop. Sternotomy is intact Pacemaker in the right subclavian ABDOMEN: Soft. PEG in place EXTREMITIES: 1+ pitting edema. Right heel in dressing and connected to WoundVac Shivam Sharpe MD January 07, 2019 11:02
--- NOTE | 2019-01-07 11:40 | Nephrology Progress Note ---
Assessment/Plan Problem List: (1) ESRD (end stage renal disease) on dialysis (2) Foot ulcer (3) CHF (congestive heart failure) Assessment: Ej Fx 20 % (4) Pacemaker (5) Acute respiratory failure Assessment: with Co2 retention (6) G-tube site cellulitis Assessment ESRD with high K and SOB on admit Foot ulcer, likely infected High Troponin likely NSTMI Pacer , Pleural effusion s/p CABGS s/p Liver transplant Plan dialysis 01/04 and 01/06 labs before HD noted BP low- improved on midodrine per consultants, GI GT site infection, topical antibiotic Neuro note appreciated placement in process vascular esteban regarding heel ulcer per Dr Mcgill pain med change to dilaudid GT Now has tracheostomy and PEG Adjust BP meds add nitro paste TID Antibiotics by ID per cardio and ID Podiatry and Vascular surgical fu ? DC planning? Subjective ROS Limited/Unobtainable: No Objective Objective Last 24 Hour Vital Signs Date Time Temp Pulse Resp B/P (MAP) Pulse Ox O2 Delivery O2 Flow Rate FiO2 01/07/19 10:47 68 32 40 01/07/19 10:46 99 01/07/19 09:21 70 24 40 01/07/19 08:00 97.7 72 24 133/100 (111) 100 01/07/19 08:00 40 01/07/19 08:00 Mechanical Ventilator 01/07/19 07:36 68 24 40 01/07/19 07:29 74 01/07/19 05:30 78 28 40 01/07/19 04:00 40 01/07/19 04:00 Mechanical Ventilator 01/07/19 04:00 97.5 80 24 113/87 (96) 100 01/07/19 03:30 71 21 40 01/07/19 03:25 80 01/07/19 01:08 72 23 40 01/07/19 00:00 97.7 80 26 100/77 (85) 100 01/07/19 00:00 Mechanical Ventilator 01/06/19 23:45 80 01/06/19 23:21 77 25 40 01/06/19 21:30 62 20 40 01/06/19 20:00 97.3 80 25 153/86 (108) 100 01/06/19 20:00 40 01/06/19 20:00 Mechanical Ventilator 01/06/19 19:30 65 21 40 01/06/19 19:28 81 01/06/19 17:00 67 24 40 01/06/19 16:00 98.1 76 22 135/82 (99) 100 01/06/19 16:00 40 01/06/19 16:00 76 01/06/19 16:00 Mechanical Ventilator 01/06/19 15:24 78 24 40 01/06/19 13:10 62 25 40 01/06/19 12:00 98.1 74 24 154/82 (106) 100 01/06/19 12:00 Mechanical Ventilator 01/06/19 12:00 40 01/06/19 12:00 75 Intake and Output 01/06/19 01/07/19 19:00 07:00 Intake Total 510 ml 130 ml Output Total 3000 ml Balance -2490 ml 130 ml Free Water 90 ml Tube Feeding 200 ml 40 ml Blood Product 250 ml Other 60 ml Peritoneal Dialysis UF 3000 ml # Bowel Movements 1 5 Laboratory Tests 01/06/19 16:00: Hepatitis A IgM Antibody Negative, Hepatitis B Surface Antigen [Pending], Hepatitis B Surface Antibody, Quant [Pending], Hepatitis B Core IgM Antibody Negative, Hepatitis C Antibody [Pending] 01/07/19 03:25: White Blood Count 7.7, Red Blood Count 3.59L, Hemoglobin 9.3L, Hematocrit 28.8L , Mean Corpuscular Volume 80, Mean Corpuscular Hemoglobin 25.9L, Mean Corpuscular Hemoglobin Concent 32.2, Red Cell Distribution Width 15.8H, Platelet Count 189, Mean Platelet Volume 7.6, Neutrophils (%) (Auto) 76.8H, Lymphocytes (%) (Auto) 12.6L, Monocytes (%) (Auto) 9.9, Eosinophils (%) (Auto) 0.0, Basophils (%) (Auto) 0.7, Sodium Level 133L, Potassium Level 4.4, Chloride Level 92L, Carbon Dioxide Level 29, Anion Gap 12, Blood Urea Nitrogen 67H, Creatinine 5.1H, Estimat Glomerular Filtration Rate 11.4, Glucose Level 86, Uric Acid 4.6, Calcium Level 8.6, Phosphorus Level 4.6, Magnesium Level 2.2, Total Bilirubin 0.5, Direct Bilirubin 0.2, Gamma Glutamyl Transpeptidase 54, Aspartate Amino Transf (AST/SGOT) 15, Alanine Aminotransferase (ALT/SGPT) 6L, Alkaline Phosphatase 170H, Total Protein 6.6, Albumin 2.0L Height (Feet): 5 Height (Inches): 4.00 Weight (Pounds): 226 EENT: other - trach Respiratory/Chest: decreased breath sounds Abdomen: other - PEG Objective no other change Nakul Stevens MD January 07, 2019 11:39
[2019-01-07 12:00] VITALS: BP 152/72
--- NOTE | 2019-01-07 13:41 | Infectious Diseases Prog Note ---
Assessment/Plan Problems: (1) Diarrhea Assessment & Plan: rule out infectious eitiology , agrre on [facility] for C diff toxin check, will send stool culture too , avoid laxatives, monitor clinically , encourage hydration (2) Foot ulcer Assessment & Plan: with MRSA grew out of it in the past, S/P vancomycin treatment with HD for two weeks, had vascular eval with revascularization to the right leg , S/P ulcer resection by glost tile sorter . deep ulcer culture grew MRSA and E.coli with diphtheroids , possible colonization , with no evidence of active infection as per discussion with podiatry , no need to be started on antibiotics for now , will continue to monitor clinically and make recommendations as necessary . bone scan ruled out osteomyelitis of the heel before, couldn't do an MRI since on the vent . continue local wound care as per glost tile sorter . (3) Thrush, oral Assessment & Plan: continue local nystatin as needed , S/P micafungin for three weeks empirically (4) HCV antibody positive Assessment & Plan: no evidence of active infection, with undetectable viral load , suspect due to previous infection , cleared, S/P liver transplant . (5) DM (diabetes mellitus) Assessment & Plan: recommend tight glycemic control to keep blood glucose between 100-140 (6) CHF (congestive heart failure) Assessment & Plan: on HD , renal is following, monitor daily weight (7) Severe tongue swelling Assessment & Plan: improving , s/p tracheostomy to protect his airway since respiratory status worsened . now improving, pulmonary is following (8) Pleural effusion Assessment & Plan: recurrent on the right, with lung collapse , S/P thoracentesis X 3 now with removal of 2.3 liters of clear fluids on 12/31/18 . await fluids culture and gram stain, with PH and Glucose level . PREVIOUS culture were negative with negative cytology. pulmonary is following (9) Ascites Assessment & Plan: S/P paracentesis with removal of 4.1 liters of fluids, culture so far is negative Assessment/Plan will continue to monitor patient on daily basis and make recommendations as necessary since he is high risk for recurrent infection Subjective Constitutional: Reports: no symptoms HEENT: Reports: no symptoms Respiratory: Reports: no symptoms Breasts: Reports: no symptoms Cardiovascular: Reports: no symptoms Gastrointestinal/Abdominal: Reports: diarrhea, bloating Genitourinary: Reports: no symptoms Neurologic: Reports: weakness Psychiatric: Reports: no symptoms Skin: Reports: ulcer Endocrine: Reports: no symptoms Hematologic: Reports: no symptoms Musculoskeletal: Reports: no symptoms Allergies: Coded Allergies: CEPHALEXIN (Unverified Allergy, Unknown, 02/24/14) SULFAMETHOXAZOLE (Unverified Allergy, Unknown, 02/24/14) TRIMETHOPRIM (Unverified Allergy, Unknown, 02/24/14) Subjective he was comfortable, lying in bed, denied any fever or chills, no significant secretions, no SOB . has heel pain at the surgery site with wound VAC in place , but no draining coming out . developed diarrhea last night , nonbloody Objective Vital Signs Last 24 Hour Vital Signs Date Time Temp Pulse Resp B/P (MAP) Pulse Ox O2 Delivery O2 Flow Rate FiO2 01/07/19 12:38 74 25 40 01/07/19 12:00 97.7 82 26 152/72 (98) 100 01/07/19 12:00 Mechanical Ventilator 01/07/19 12:00 40 01/07/19 11:44 83 01/07/19 10:47 68 32 40 01/07/19 10:46 99 01/07/19 09:21 70 24 40 01/07/19 08:00 97.7 72 24 133/100 (111) 100 01/07/19 08:00 40 01/07/19 08:00 Mechanical Ventilator 01/07/19 07:36 68 24 40 01/07/19 07:29 74 01/07/19 05:30 78 28 40 01/07/19 04:00 40 01/07/19 04:00 Mechanical Ventilator 01/07/19 04:00 97.5 80 24 113/87 (96) 100 01/07/19 03:30 71 21 40 01/07/19 03:25 80 01/07/19 01:08 72 23 40 01/07/19 00:00 97.7 80 26 100/77 (85) 100 01/07/19 00:00 Mechanical Ventilator 01/06/19 23:45 80 01/06/19 23:21 77 25 40 01/06/19 21:30 62 20 40 01/06/19 20:00 97.3 80 25 153/86 (108) 100 01/06/19 20:00 40 01/06/19 20:00 Mechanical Ventilator 01/06/19 19:30 65 21 40 01/06/19 19:28 81 01/06/19 17:00 67 24 40 01/06/19 16:00 98.1 76 22 135/82 (99) 100 01/06/19 16:00 40 01/06/19 16:00 76 01/06/19 16:00 Mechanical Ventilator 01/06/19 15:24 78 24 40 Height (Feet): 5 Height (Inches): 4.00 Weight (Pounds): 226 General Appearance: WD/WN, no acute distress HEENT: normocephalic, atraumatic, anicteric, mucous membranes moist, PERRL, EOMI, pharynx normal, supple, no JVD Respiratory/Chest: chest wall non-tender, lungs clear, normal breath sounds, no respiratory distress, no accessory muscle use Cardiovascular: normal peripheral pulses, normal rate, regular rhythm, no gallop/murmur, no JVD Abdomen: normal bowel sounds, soft, non tender, no organomegaly, non distended , no mass, no scars Genitourinary: normal external genitalia Extremities: no cyanosis, no clubbing Skin: no rash, no lesions, ulcers 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: independent living advisor 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 normal, abnormal gait, alert, responsive Lymphatic: no neck adenopathy, no groin adenopathy Musculoskeletal: normal muscle bulk, no effusion Laboratory Tests Test 01/06/19 16:00 01/07/19 03:25 Hepatitis A IgM Antibody Negative (Negative) Hepatitis B Surface Antigen Pending Hepatitis B Surface Antibody, Quant Pending Hepatitis B Core IgM Antibody Negative (Negative) Hepatitis C Antibody Pending White Blood Count 7.7 K/UL (4.8-10.8) Red Blood Count 3.59 M/UL (4.70-6.10) L Hemoglobin 9.3 G/DL (14.2-18.0) L Hematocrit 28.8 % (42.0-52.0) L Mean Corpuscular Volume 80 FL (80-99) Mean Corpuscular Hemoglobin 25.9 PG (27.0-31.0) L Mean Corpuscular Hemoglobin Concent 32.2 G/DL (32.0-36.0) Red Cell Distribution Width 15.8 % (11.6-14.8) H Platelet Count 189 K/UL (150-450) Mean Platelet Volume 7.6 FL (6.5-10.1) Neutrophils (%) (Auto) 76.8 % (45.0-75.0) H Lymphocytes (%) (Auto) 12.6 % (20.0-45.0) L Monocytes (%) (Auto) 9.9 % (1.0-10.0) Eosinophils (%) (Auto) 0.0 % (0.0-3.0) Basophils (%) (Auto) 0.7 % (0.0-2.0) Sodium Level 133 MMOL/L (136-145) L Potassium Level 4.4 MMOL/L (3.5-5.1) Chloride Level 92 MMOL/L (98-107) L Carbon Dioxide Level 29 MMOL/L (21-32) Anion Gap 12 mmol/L (5-15) Blood Urea Nitrogen 67 mg/dL (7-18) H Creatinine 5.1 MG/DL (0.55-1.30) H Estimat Glomerular Filtration Rate 11.4 mL/min (>60) Glucose Level 86 MG/DL (74-106) Uric Acid 4.6 MG/DL (2.6-7.2) Calcium Level 8.6 MG/DL (8.5-10.1) Phosphorus Level 4.6 MG/DL (2.5-4.9) Magnesium Level 2.2 MG/DL (1.8-2.4) Total Bilirubin 0.5 MG/DL (0.2-1.0) Direct Bilirubin 0.2 MG/DL (0.0-0.3) Gamma Glutamyl Transpeptidase 54 U/L (5-85) Aspartate Amino Transf (AST/SGOT) 15 U/L (15-37) Alanine Aminotransferase (ALT/SGPT) 6 U/L (12-78) L Alkaline Phosphatase 170 U/L (46-116) H Total Protein 6.6 G/DL (6.4-8.2) Albumin 2.0 G/DL (3.4-5.0) L Current Medications Medications (Trade) Dose Ordered Sig/Aleks Route PRN Reason Start Time Stop Time Status Last Admin Dose Admin Acetaminophen (Tylenol) 650 mg Q6H PRN GT Mild Pain/Temp > 100.5 12/21/18 16:00 01/20/19 15:59 01/05/19 20:46 Acetaminophen/ Hydrocodone Bitart ([place] 5/325) 1 tab Q4H PRN ORAL Moderate Pain (Pain Scale 4-6) 01/05/19 14:30 01/12/19 14:29 01/07/19 05:49 Apixaban (Eliquis) 2.5 mg BID GT 01/01/19 21:00 01/31/19 20:59 01/07/19 08:13 Collagenase (Santyl) 1 applic DAILY TOPIC 12/29/18 09:00 01/28/19 08:59 01/07/19 09:51 Dextrose (Dextrose 50%) 25 ml Q30M PRN IV Hypoglycemia 12/31/18 23:00 01/30/19 22:59 Dextrose (Dextrose 50%) 50 ml Q30M PRN IV Hypoglycemia 12/31/18 23:00 01/30/19 22:59 Epoetin Vini (Epoetin Vini(ESRD on dialysis)) 10,000 unit SUBQ 01/06/19 21:00 02/05/19 20:59 01/06/19 20:33 Escitalopram Oxalate (Lexapro) 20 mg DAILY GT 01/05/19 09:00 02/04/19 08:59 01/07/19 08:14 Hydralazine HCl (Apresoline) 25 mg Q4H PRN GT bp over 160 syst 01/06/19 15:00 02/05/19 14:59 Insulin Aspart (NovoLOG) EVERY 6 HOURS SUBQ 01/01/19 00:00 01/31/19 00:00 01/07/19 05:51 Loperamide HCl (Imodium) 2 mg Q6H PRN GT Diarrhea 01/07/19 11:00 02/06/19 10:59 Metoclopramide HCl (Reglan) 5 mg Q6H PRN IVP Nausea & Vomiting 12/30/18 17:30 01/29/19 17:29 01/05/19 20:45 Mirtazapine (Remeron) 15 mg BEDTIME GT 12/21/18 21:00 01/20/19 20:59 01/06/19 20:33 Tacrolimus (Prograf) 2 mg MoWeFr@0000,1200 ORAL 12/28/18 00:00 01/27/19 00:00 01/06/19 11:45 Tacrolimus (Prograf) 2 mg TrudiNaren@0900,2100 ORAL 12/26/18 21:00 01/25/19 20:59 01/07/19 08:14 Francois Landis M.D. January 07, 2019 13:41
--- NOTE | 2019-01-07 13:57 | Hematology/Onc Progress Note ---
Assessment/Plan Assessment/Plan Assessment and Recs: # Acute non-occlusive dvt, right extremity ultrasound (acute non-occlusive DVT in internal jugular) --> currently is on eliquis 2.5mg po bid --> do not recommend a SVC filter --> given prior bleeding risk, hold off on heparin gtt --> vasc surgeon is aware, seek recs # Anemia of chronic disease due to underlying chronic medical issues --> ferritin is 633, tibc is low --> No evidence of hemolysis is noted, peripheral smear has been reviewed. --> Epogen can be consider if hgb downtrends --> Medications have been reviewed --> evaluate with Gi team prn --> transfuse if hgb is < 7 (will trend CBC daily) --> hgb trend 11.2-->10.9-->10.8-->10.7-->10.2-->9.7-->9.7-->8.5-->9-->9.2-->8.4 -->7.7 --> s/p transfusion on 01/06 # Failure to thrive is likely related to poor overall status, poor functional status --> with multiple decub ulcerations that are noted, seen by id/surgery --> s/p trach as well --> cea is wnl # Coagulopathy likely secondary to decreased Vitk dependent cofactors (high INR , PT) --> monitor closely for any evidence of bleeding. Currently is on eliquis --> VIT K on prn basis sq can be administered --> recently has improved inr 1.2-->1.1-->1.2 # Acute respiratory failure is now s/p trach to vent --> as per surgery recs # Ground glass opacities present on imaging of lung --> with pleural effusions, s/p drainage at this time --> no evidence for malignancy is noted --> as per pulm/id # Pleural effusion --> s/p thoracentesis, s/p paracentesis 12/31 --> no evidence of malignancy # Hyperkalemia --> kayxelate on prn basis per renal # Renal failure --> per renal recs, appreciated --> getting hd as per schedule # Altered level of consciousness --> currently as per baseline # PAD off heparin gtt and now on eliquis --> per vasc and cards --> 12/22 s/p right leg angiogram with intervention --> on eliquis, continue # Gt tube cellulitis, on topical abx as per id around site The timing of this note does not necessarily reflect the time of the patient was seen. Greatly appreciate consultation! Subjective Constitutional: Denies: no symptoms, chills, fever, malaise, weakness, other HEENT: Denies: no symptoms, eye pain, blurred vision, tearing, double vision, ear pain, ear discharge, nose pain, nose congestion, throat pain, throat swelling, mouth pain, mouth swelling, other Cardiovascular: Denies: no symptoms, chest pain, edema, irregular heart rate, lightheadedness, palpitations, syncope, other Respiratory: Denies: no symptoms, cough, shortness of breath, SOB with excertion, SOB at rest, sputum, wheezing, other Genitourinary: Denies: no symptoms, burning, discharge, frequency, flank pain, hematuria, incontinence, pain, urgency, other 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: Denies: no symptoms, anxiety, depressed, emotional problems, headache, numbness, paresthesia, pre-existing deficit, seizure, tingling, tremors, weakness, other Endocrine: Denies: no symptoms, excessive sweating, flushing, intolerance to cold, intolerance to heat, increased hunger, increased thirst, increased urine, unexplained weight gain, unexplained weight loss, other Hematologic/Lymphatic: Denies: no symptoms, anemia, easy bleeding, easy bruising, adenopathy, other Allergies: Coded Allergies: CEPHALEXIN (Unverified Allergy, Unknown, 02/24/14) SULFAMETHOXAZOLE (Unverified Allergy, Unknown, 02/24/14) TRIMETHOPRIM (Unverified Allergy, Unknown, 02/24/14) Subjective 11/30: comfortable, on abx, no complaints, on t-piece 12/01: to have hd done potentially tomorrow, is more alert/awake 12/02: no major bleeding, hgb remains approx 11, no changes 12/03: no events, breathing mildly better, hgb is improved 12/04: on vent/trach, no major changes, sr ekg 12/10: small amount of secretions, on trach/vent, no issues otherwise 12/11: no major issues, no complaints, labs reviewed, no sig changes 12/13: no events to report, no fevers or chills, awaiting placement 12/14: no changes, no major events to report, no fevers or chills 12/15: pending placement, getting gt feeds and hd as per renal 12/16: labs have been reviewed, cbc noted, no changes 12/17: no events, no fevers, no cp, hgb remains stable 12/18: restarted on heparin gtt, seen by pulm, cards 12/20: continues to be on heparin gtt, no bleeding reported, no f/c 12/21: hd for today, no fevers or chils, off hep gtt on eliquis 12/22: to get hd tomorrow, today is s/p right leg angiogram with intervention 12/23: hgb remins stable, no fevers or chills reported 12/24: no events, no bleeding, vitals reviewed, cbc stable 12/25: no events, no bleeding, on vent, hgb 9 12/27: no changes, no f/c, no night swearts, seen with other providers 12/28: right extremity ultrasound (acute non-occlusive DVT in internal jugular, on eliquis 12/29: no events, no night sweats, seen by gi, no bleeding 12/30: cbc has been reviewed, no f/c, no night sweats reported 12/31: no events, eliquis is on hold cbc has been reviewed, bp elevated 01/01: no fevers or chills, cbc reviewed, hgb 9.3, getting HD 01/02: no events noted, getting norco for pain, hgb stable 01/04: not events to report, no bleeding, refusing ivl at this time, cbc reviewed 01/05: no fevers or chills noted, s/p trach/vent, no f/c, no chills noted 01/06: no events, to get 1 unit prbc today, renal seen, on abx 01/07: hd for tomorrow, seen by renal, no events, cbc reviewed Objective Objective Current Medications Medications (Trade) Dose Ordered Sig/Aleks Route PRN Reason Start Time Stop Time Status Last Admin Dose Admin Acetaminophen (Tylenol) 650 mg Q6H PRN GT Mild Pain/Temp > 100.5 12/21/18 16:00 01/20/19 15:59 01/05/19 20:46 Acetaminophen/ Hydrocodone Bitart ([place] 5/325) 1 tab Q4H PRN ORAL Moderate Pain (Pain Scale 4-6) 01/05/19 14:30 01/12/19 14:29 01/07/19 05:49 Apixaban (Eliquis) 2.5 mg BID GT 01/01/19 21:00 01/31/19 20:59 01/07/19 08:13 Collagenase (Santyl) 1 applic DAILY TOPIC 12/29/18 09:00 01/28/19 08:59 01/07/19 09:51 Dextrose (Dextrose 50%) 25 ml Q30M PRN IV Hypoglycemia 12/31/18 23:00 01/30/19 22:59 Dextrose (Dextrose 50%) 50 ml Q30M PRN IV Hypoglycemia 12/31/18 23:00 01/30/19 22:59 Epoetin Vini (Epoetin Vini(ESRD on dialysis)) 10,000 unit FRI-FRI-FRI SUBQ 01/06/19 21:00 02/05/19 20:59 01/06/19 20:33 Escitalopram Oxalate (Lexapro) 20 mg DAILY GT 01/05/19 09:00 02/04/19 08:59 01/07/19 08:14 Hydralazine HCl (Apresoline) 25 mg Q4H PRN GT bp over 160 syst 01/06/19 15:00 02/05/19 14:59 Insulin Aspart (NovoLOG) EVERY 6 HOURS SUBQ 01/01/19 00:00 01/31/19 00:00 01/07/19 05:51 Loperamide HCl (Imodium) 2 mg Q6H PRN GT Diarrhea 01/07/19 11:00 02/06/19 10:59 Metoclopramide HCl (Reglan) 5 mg Q6H PRN IVP Nausea & Vomiting 12/30/18 17:30 01/29/19 17:29 01/05/19 20:45 Mirtazapine (Remeron) 15 mg BEDTIME GT 12/21/18 21:00 01/20/19 20:59 01/06/19 20:33 Tacrolimus (Prograf) 2 mg MoWeFr@0000,1200 ORAL 12/28/18 00:00 01/27/19 00:00 01/06/19 11:45 Tacrolimus (Prograf) 2 mg SuTuThSa@0900,2100 ORAL 12/26/18 21:00 01/25/19 20:59 01/07/19 08:14 Last 24 Hour Vital Signs Date Time Temp Pulse Resp B/P (MAP) Pulse Ox O2 Delivery O2 Flow Rate FiO2 01/07/19 12:38 74 25 40 01/07/19 12:00 97.7 82 26 152/72 (98) 100 01/07/19 12:00 Mechanical Ventilator 01/07/19 12:00 40 01/07/19 11:44 83 01/07/19 10:47 68 32 40 01/07/19 10:46 99 01/07/19 09:21 70 24 40 01/07/19 08:00 97.7 72 24 133/100 (111) 100 01/07/19 08:00 40 01/07/19 08:00 Mechanical Ventilator 01/07/19 07:36 68 24 40 01/07/19 07:29 74 01/07/19 05:30 78 28 40 01/07/19 04:00 40 01/07/19 04:00 Mechanical Ventilator 01/07/19 04:00 97.5 80 24 113/87 (96) 100 01/07/19 03:30 71 21 40 01/07/19 03:25 80 01/07/19 01:08 72 23 40 01/07/19 00:00 97.7 80 26 100/77 (85) 100 01/07/19 00:00 Mechanical Ventilator 01/06/19 23:45 80 01/06/19 23:21 77 25 40 01/06/19 21:30 62 20 40 01/06/19 20:00 97.3 80 25 153/86 (108) 100 01/06/19 20:00 40 01/06/19 20:00 Mechanical Ventilator 01/06/19 19:30 65 21 40 01/06/19 19:28 81 01/06/19 17:00 67 24 40 01/06/19 16:00 98.1 76 22 135/82 (99) 100 5/22/19 16:00 40 01/06/19 16:00 76 01/06/19 16:00 Mechanical Ventilator 01/06/19 15:24 78 24 40 01/06/19 13:10 62 25 40 01/06/19 12:00 98.1 74 24 154/82 (106) 100 01/06/19 12:00 Mechanical Ventilator 01/06/19 12:00 40 01/06/19 12:00 75 01/06/19 10:42 68 25 40 01/06/19 08:59 72 25 40 01/06/19 08:00 Mechanical Ventilator 01/06/19 08:00 97.5 74 24 163/77 (105) 100 01/06/19 08:00 40 01/06/19 07:26 74 01/06/19 07:01 80 25 40 01/06/19 04:55 78 23 40 01/06/19 04:00 40 01/06/19 04:00 Mechanical Ventilator 01/06/19 03:24 79 01/06/19 03:07 77 21 40 01/06/19 00:49 80 26 40 01/06/19 00:00 98.7 88 26 108/55 (72) 100 01/06/19 00:00 Mechanical Ventilator 01/05/19 23:41 80 01/05/19 22:51 82 22 40 01/05/19 20:36 75 25 40 01/05/19 20:00 98.4 82 23 99/48 (65) 100 01/05/19 20:00 40 01/05/19 20:00 Mechanical Ventilator 01/05/19 19:04 80 01/05/19 18:55 78 30 40 01/05/19 17:43 152/76 01/05/19 16:43 81 30 40 01/05/19 16:00 40 01/05/19 16:00 Mechanical Ventilator 01/05/19 16:00 99.2 83 23 152/76 (101) 99 01/05/19 15:20 81 35 40 01/05/19 15:17 89 01/05/19 14:59 76 33 40 Intake and Output 01/06/19 01/07/19 19:00 07:00 Intake Total 510 ml 130 ml Output Total 3000 ml Balance -2490 ml 130 ml Free Water 90 ml Tube Feeding 200 ml 40 ml Blood Product 250 ml Other 60 ml Peritoneal Dialysis UF 3000 ml # Bowel Movements 1 5 Labs Test 01/05/19 09:20 01/06/19 04:15 01/06/19 16:00 01/07/19 03:25 White Blood Count 7.7 K/UL (4.8-10.8) 8.5 K/UL (4.8-10.8) 7.7 K/UL (4.8-10.8) Red Blood Count 3.41 M/UL (4.70-6.10) 3.07 M/UL (4.70-6.10) 3.59 M/UL (4.70-6.10) Hemoglobin 8.6 G/DL (14.2-18.0) 7.7 G/DL (14.2-18.0) 9.3 G/DL (14.2-18.0) Hematocrit 27.0 % (42.0-52.0) 24.5 % (42.0-52.0) 28.8 % (42.0-52.0) Mean Corpuscular Volume 79 FL (80-99) 80 FL (80-99) 80 FL (80-99) Mean Corpuscular Hemoglobin 25.3 PG (27.0-31.0) 25.0 PG (27.0-31.0) 25.9 PG (27.0-31.0) Mean Corpuscular Hemoglobin Concent 32.0 G/DL (32.0-36.0) 31.4 G/DL (32.0-36.0) 32.2 G/DL (32.0-36.0) Red Cell Distribution Width 16.8 % (11.6-14.8) 16.5 % (11.6-14.8) 15.8 % (11.6-14.8) Platelet Count 198 K/UL (150-450) 178 K/UL (150-450) 189 K/UL (150-450) Mean Platelet Volume 7.7 FL (6.5-10.1) 7.0 FL (6.5-10.1) 7.6 FL (6.5-10.1) Neutrophils (%) (Auto) 78.4 % (45.0-75.0) % (45.0-75.0) 76.8 % (45.0-75.0) Lymphocytes (%) (Auto) 11.9 % (20.0-45.0) % (20.0-45.0) 12.6 % (20.0-45.0) Monocytes (%) (Auto) 8.8 % (1.0-10.0) % (1.0-10.0) 9.9 % (1.0-10.0) Eosinophils (%) (Auto) 0.0 % (0.0-3.0) % (0.0-3.0) 0.0 % (0.0-3.0) Basophils (%) (Auto) 1.0 % (0.0-2.0) % (0.0-2.0) 0.7 % (0.0-2.0) Sodium Level 131 MMOL/L (136-145) 130 MMOL/L (136-145) 133 MMOL/L (136-145) Potassium Level 4.2 MMOL/L (3.5-5.1) 4.2 MMOL/L (3.5-5.1) 4.4 MMOL/L (3.5-5.1) Chloride Level 91 MMOL/L (98-107) 90 MMOL/L (98-107) 92 MMOL/L (98-107) Carbon Dioxide Level 31 MMOL/L (21-32) 29 MMOL/L (21-32) 29 MMOL/L (21-32) Anion Gap 9 mmol/L (5-15) 11 mmol/L (5-15) 12 mmol/L (5-15) Blood Urea Nitrogen 71 mg/dL (7-18) 84 mg/dL (7-18) 67 mg/dL (7-18) Creatinine 5.3 MG/DL (0.55-1.30) 5.8 MG/DL (0.55-1.30) 5.1 MG/DL (0.55-1.30) Estimat Glomerular Filtration Rate 10.9 mL/min (>60) 9.8 mL/min (>60) 11.4 mL/min (>60) Glucose Level 143 MG/DL (74-106) 108 MG/DL (74-106) 86 MG/DL (74-106) Calcium Level 8.8 MG/DL (8.5-10.1) 8.7 MG/DL (8.5-10.1) 8.6 MG/DL (8.5-10.1) Phosphorus Level 4.1 MG/DL (2.5-4.9) 4.6 MG/DL (2.5-4.9) Magnesium Level 2.2 MG/DL (1.8-2.4) 2.2 MG/DL (1.8-2.4) Total Bilirubin 0.4 MG/DL (0.2-1.0) 0.4 MG/DL (0.2-1.0) 0.5 MG/DL (0.2-1.0) Direct Bilirubin < 0.1 MG/DL (0.0-0.3) 0.2 MG/DL (0.0-0.3) Aspartate Amino Transf (AST/SGOT) 13 U/L (15-37) 15 U/L (15-37) 15 U/L (15-37) Alanine Aminotransferase (ALT/SGPT) 10 U/L (12-78) 6 U/L (12-78) 6 U/L (12-78) Alkaline Phosphatase 133 U/L (46-116) 154 U/L (46-116) 170 U/L (46-116) Total Protein 6.4 G/DL (6.4-8.2) 6.1 G/DL (6.4-8.2) 6.6 G/DL (6.4-8.2) Albumin 2.0 G/DL (3.4-5.0) 1.9 G/DL (3.4-5.0) 2.0 G/DL (3.4-5.0) Differential Total Cells Counted 100 Neutrophils % (Manual) 77 % (45-75) Lymphocytes % (Manual) 13 % (20-45) Monocytes % (Manual) 10 % (1-10) Eosinophils % (Manual) 0 % (0-3) Basophils % (Manual) 0 % (0-2) Band Neutrophils 0 % (0-8) Platelet Estimate Adequate Platelet Morphology Normal Hypochromasia 3+ Anisocytosis 1+ Globulin 4.2 g/dL Albumin/Globulin Ratio 0.5 (1.0-2.7) Hepatitis A IgM Antibody Negative (Negative) Hepatitis B Surface Antigen Negative (Negative) Hepatitis B Core IgM Antibody Negative (Negative) Hepatitis C Antibody 8.2 s/co ratio (0.0-0.9) Uric Acid 4.6 MG/DL (2.6-7.2) Gamma Glutamyl Transpeptidase 54 U/L (5-85) Height (Feet): 5 Height (Inches): 4.00 Weight (Pounds): 226 Objective PE General Appearance: mild distress, moderate distress Lines, tubes and drains: peripheral HEENT: EOMI, thrush, tonsils swollen ++trach Neck: normal inspection Respiratory/Chest: decreased breath sounds, accessory muscle use Cardiovascular/Chest: tachycardia Abdomen: soft, no organomegaly, no mass, ++ peg Extremities: other Skin Exam: warm/dry, rash Neurologic: alert, responsive Zacarias Khoury MD January 07, 2019 13:57
[2019-01-07 16:00] VITALS: BP 107/74
--- NOTE | 2019-01-07 17:30 | Pulmonology Progress Note ---
Assessment/Plan Assessment/Plan 1. Resp failure, hypercapneic 2. End-stage renal disease, on dialysis, status post multiple upper extremity vascular procedures. 3. Coronary artery bypass surgery. 4. Diabetes. 5. Dysphonia, tongue swelling, resolved; s/p trach 6. Trapped R lung with hydropneumothorax PLAN: CXR after thoracentesis with trapped lung now fluid reaccumulating not weanable disc w RN Subjective Gastrointestinal/Abdominal: Reports: diarrhea Allergies: Coded Allergies: CEPHALEXIN (Unverified Allergy, Unknown, 02/24/14) SULFAMETHOXAZOLE (Unverified Allergy, Unknown, 02/24/14) TRIMETHOPRIM (Unverified Allergy, Unknown, 02/24/14) Objective Last 24 Hour Vital Signs Date Time Temp Pulse Resp B/P (MAP) Pulse Ox O2 Delivery O2 Flow Rate FiO2 01/07/19 17:05 78 33 40 01/07/19 16:00 Mechanical Ventilator 01/07/19 16:00 40 01/07/19 16:00 97.3 85 28 107/74 (85) 100 01/07/19 15:16 83 01/07/19 15:07 72 30 40 01/07/19 12:38 74 25 40 01/07/19 12:00 97.7 82 26 152/72 (98) 100 01/07/19 12:00 Mechanical Ventilator 01/07/19 12:00 40 01/07/19 11:44 83 01/07/19 10:47 68 32 40 01/07/19 10:46 99 01/07/19 09:21 70 24 40 01/07/19 08:00 97.7 72 24 133/100 (111) 100 01/07/19 08:00 40 01/07/19 08:00 Mechanical Ventilator 01/07/19 07:36 68 24 40 01/07/19 07:29 74 01/07/19 05:30 78 28 40 01/07/19 04:00 40 01/07/19 04:00 Mechanical Ventilator 01/07/19 04:00 97.5 80 24 113/87 (96) 100 01/07/19 03:30 71 21 40 01/07/19 03:25 80 01/07/19 01:08 72 23 40 01/07/19 00:00 97.7 80 26 100/77 (85) 100 01/07/19 00:00 Mechanical Ventilator 01/06/19 23:45 80 01/06/19 23:21 77 25 40 01/06/19 21:30 62 20 40 01/06/19 20:00 97.3 80 25 153/86 (108) 100 01/06/19 20:00 40 01/06/19 20:00 Mechanical Ventilator 01/06/19 19:30 65 21 40 01/06/19 19:28 81 Intake and Output 01/06/19 01/07/19 19:00 07:00 Intake Total 510 ml 130 ml Output Total 3000 ml Balance -2490 ml 130 ml Free Water 90 ml Tube Feeding 200 ml 40 ml Blood Product 250 ml Other 60 ml Peritoneal Dialysis UF 3000 ml # Bowel Movements 1 5 Objective trach on vent General Appearance: no acute distress Respiratory/Chest: lungs clear, decreased breath sounds Cardiovascular: normal rate Laboratory Tests 01/07/19 03:25: White Blood Count 7.7, Red Blood Count 3.59L, Hemoglobin 9.3L, Hematocrit 28.8L , Mean Corpuscular Volume 80, Mean Corpuscular Hemoglobin 25.9L, Mean Corpuscular Hemoglobin Concent 32.2, Red Cell Distribution Width 15.8H, Platelet Count 189, Mean Platelet Volume 7.6, Neutrophils (%) (Auto) 76.8H, Lymphocytes (%) (Auto) 12.6L, Monocytes (%) (Auto) 9.9, Eosinophils (%) (Auto) 0.0, Basophils (%) (Auto) 0.7, Sodium Level 133L, Potassium Level 4.4, Chloride Level 92L, Carbon Dioxide Level 29, Anion Gap 12, Blood Urea Nitrogen 67H, Creatinine 5.1H, Estimat Glomerular Filtration Rate 11.4, Glucose Level 86, Uric Acid 4.6, Calcium Level 8.6, Phosphorus Level 4.6, Magnesium Level 2.2, Total Bilirubin 0.5, Direct Bilirubin 0.2, Gamma Glutamyl Transpeptidase 54, Aspartate Amino Transf (AST/SGOT) 15, Alanine Aminotransferase (ALT/SGPT) 6L, Alkaline Phosphatase 170H, Total Protein 6.6, Albumin 2.0L Current Medications Medications (Trade) Dose Ordered Sig/Aleks Route PRN Reason Start Time Stop Time Status Last Admin Dose Admin Acetaminophen (Tylenol) 650 mg Q6H PRN GT Mild Pain/Temp > 100.5 12/21/18 16:00 01/20/19 15:59 01/05/19 20:46 Acetaminophen/ Hydrocodone Bitart (May 5/325) 1 tab Q4H PRN ORAL Moderate Pain (Pain Scale 4-6) 01/05/19 14:30 01/12/19 14:29 01/07/19 05:49 Apixaban (Eliquis) 2.5 mg BID GT 01/01/19 21:00 01/31/19 20:59 01/07/19 08:13 Collagenase (Santyl) 1 applic DAILY TOPIC 12/29/18 09:00 01/28/19 08:59 01/07/19 09:51 Dextrose (Dextrose 50%) 25 ml Q30M PRN IV Hypoglycemia 12/31/18 23:00 01/30/19 22:59 Dextrose (Dextrose 50%) 50 ml Q30M PRN IV Hypoglycemia 12/31/18 23:00 01/30/19 22:59 Epoetin Vini (Epoetin Vini(ESRD on dialysis)) 10,000 unit FRI-FRI-FRI SUBQ 01/06/19 21:00 02/05/19 20:59 01/06/19 20:33 Escitalopram Oxalate (Lexapro) 20 mg DAILY GT 01/05/19 09:00 02/04/19 08:59 01/07/19 08:14 Hydralazine HCl (Apresoline) 25 mg Q4H PRN GT bp over 160 syst 01/06/19 15:00 02/05/19 14:59 Insulin Aspart (NovoLOG) EVERY 6 HOURS SUBQ 01/01/19 00:00 01/31/19 00:00 01/07/19 05:51 Loperamide HCl (Imodium) 2 mg Q6H PRN GT Diarrhea 01/07/19 11:00 02/06/19 10:59 Metoclopramide HCl (Reglan) 5 mg Q6H PRN IVP Nausea & Vomiting 12/30/18 17:30 01/29/19 17:29 01/05/19 20:45 Mirtazapine (Remeron) 15 mg BEDTIME GT 12/21/18 21:00 01/20/19 20:59 01/06/19 20:33 Tacrolimus (Prograf) 2 mg MoWeFr@0000,1200 ORAL 12/28/18 00:00 01/27/19 00:00 01/06/19 11:45 Tacrolimus (Prograf) 2 mg Johnny@0900,2100 ORAL 12/26/18 21:00 01/25/19 20:59 01/07/19 08:14 Saroj Mendoza MD January 07, 2019 17:30
[2019-01-07 20:00] VITALS: BP 110/81
[2019-01-08] VITALS: BP 118/74
--- NOTE | 2019-01-08 01:45 | Progress Note ---
DATE: 01/07/2019 SUBJECTIVE: The patient is the same. Continues to have depressed mood, anhedonia, worthlessness, and decreased energy. The patient is hopeless, and believes that his medical condition is not improving. The patient has given up. He has poor energy and poor memory. MENTAL STATUS EXAMINATION: The patient is alert and oriented x4, however, he has poor insight into his current condition. Mood is depressed. Affect is constricted, congruent with mood. Thought process is concrete. Thought content, no suicidal or homicidal ideation. ASSESSMENT: 1. Major depressive disorder. 2. Cognitive impairment. PLAN: We will continue current medications. Provide the patient with reality orientation and supportive therapy. Jeffrey Lala M.D. DR: LAINE JOB#: [id number] CC:
[2019-01-08 04:00] VITALS: BP 107/55
[2019-01-08 05:10] LABS: HEMATOCRIT 27.7 % (42.0-52.0); HEMOGLOBIN 8.8 G/DL (14.2-18.0); MEAN CORPUSCULAR VOLUME 80 FL (80-99); PLATELET COUNT 191 K/UL (150-450); RED BLOOD COUNT 3.48 M/UL (4.70-6.10); WHITE BLOOD COUNT 6.2 K/UL (4.8-10.8)
[2019-01-08 05:32] LABS: ANION GAP 12 mmol/L (5-15); BLOOD UREA NITROGEN 78 mg/dL (7-18); CALCIUM 8.7 MG/DL (8.5-10.1); CARBON DIOXIDE 28 MMOL/L (21-32); CHLORIDE 91 MMOL/L (98-107); CREATININE 5.8 MG/DL (0.55-1.30); POTASSIUM 4.4 MMOL/L (3.5-5.1); SODIUM 131 MMOL/L (136-145)
[2019-01-08] MEDS: NovoLOG Insulin Flexpen SUBQ SCH ×4 (05:35→23:05)
[2019-01-08 08:00] VITALS: BP 130/75
[2019-01-08] MEDS: Eliquis 2.5mg tablet GT SCH ×2 (08:31→17:27)
--- NOTE | 2019-01-08 09:33 | GI Progress Note ---
Assessment/Plan Problems: (1) Foot ulcer ICD Codes: L97.509 - Non-pressure chronic ulcer of other part of unspecified foot with unspecified severity SNOMED: 88764426 Qualifiers: Qualified Codes: L97.511 - Non-pressure chronic ulcer of other part of right foot limited to breakdown of skin (2) DM (diabetes mellitus) ICD Codes: E11.9 - Type 2 diabetes mellitus without complications SNOMED: 36939613 (3) Transplant ICD Codes: Z94.9 - Transplanted organ and tissue status, unspecified SNOMED: 070039443 Status: unchanged Status Narrative Discussed with Dr. Escalera. Assessment/Plan History of liver transplant, currently on Prograf History of cholecystectomy status post tracheostomy and PEG Infected G-tube site, fu ID recs C. difficile negative x 2 would care cx >> GRAM NEGATIVE BACILLUS CT AP reviewed, Moderate to large right pleural effusion. Moderate Ascites. s/p Paracentesis yielding 4.1 yield, r/o SBP >> negative for malignant cells Status post right thoracentesis yielding 2.1 L >> negative for malignant cells Continue G-tube feedings GT site care BID/prn topical abx around GT site per ID HD per nephro cont tacrolimus prn transfusions ppi zofran prn Imodium prn, Lomotil for persistent diarrhea follow labs supportive care outpatient Hep C tx, pending RNA PCR The patient was seen and examined at bedside and all new and available data was reviewed in the patients chart. I agree with the above findings, impression and plan. (Patient seen earlier today. Signature stamp does not reflect patient encounter time.). - Jorge Escalera MD Subjective Subjective Limited abdominal distention and discomfort improved diarrhea Objective Last 24 Hour Vital Signs Date Time Temp Pulse Resp B/P (MAP) Pulse Ox O2 Delivery O2 Flow Rate FiO2 01/08/19 09:27 82 25 40 01/08/19 09:12 98 01/08/19 09:12 72 34 40 01/08/19 08:00 Mechanical Ventilator 01/08/19 08:00 40 01/08/19 08:00 97.6 77 26 130/75 (93) 100 01/08/19 06:38 75 24 40 01/08/19 04:43 74 23 40 01/08/19 04:00 98.1 77 22 107/55 (72) 100 01/08/19 04:00 Mechanical Ventilator 01/08/19 04:00 40 01/08/19 03:34 81 01/08/19 03:19 71 23 40 01/08/19 00:31 73 28 40 01/08/19 00:00 97.9 77 24 118/74 (89) 100 01/08/19 00:00 Mechanical Ventilator 01/07/19 23:36 79 01/07/19 23:11 75 21 40 01/07/19 21:12 77 26 40 01/07/19 20:00 97.6 76 25 110/81 (91) 100 01/07/19 20:00 40 01/07/19 20:00 Mechanical Ventilator 01/07/19 19:28 74 25 40 01/07/19 19:05 76 01/07/19 17:05 78 33 40 01/07/19 16:00 Mechanical Ventilator 01/07/19 16:00 40 01/07/19 16:00 97.3 85 28 107/74 (85) 100 01/07/19 15:16 83 01/07/19 15:07 72 30 40 01/07/19 12:38 74 25 40 01/07/19 12:00 97.7 82 26 152/72 (98) 100 01/07/19 12:00 Mechanical Ventilator 01/07/19 12:00 40 01/07/19 11:44 83 01/07/19 10:47 68 32 40 01/07/19 10:46 99 Intake and Output 01/07/19 01/08/19 18:59 06:59 Intake Total 220 ml 360 ml Balance 220 ml 360 ml Free Water 60 ml 120 ml Tube Feeding 100 ml 240 ml Other 60 ml # Bowel Movements 2 6 Laboratory Tests Test 01/08/19 04:43 White Blood Count 6.2 K/UL (4.8-10.8) Red Blood Count 3.48 M/UL (4.70-6.10) L Hemoglobin 8.8 G/DL (14.2-18.0) L Hematocrit 27.7 % (42.0-52.0) L Mean Corpuscular Volume 80 FL (80-99) Mean Corpuscular Hemoglobin 25.4 PG (27.0-31.0) L Mean Corpuscular Hemoglobin Concent 31.9 G/DL (32.0-36.0) L Red Cell Distribution Width 16.0 % (11.6-14.8) H Platelet Count 191 K/UL (150-450) Mean Platelet Volume 6.5 FL (6.5-10.1) Neutrophils (%) (Auto) 72.0 % (45.0-75.0) Lymphocytes (%) (Auto) 14.0 % (20.0-45.0) L Monocytes (%) (Auto) 12.0 % (1.0-10.0) H Eosinophils (%) (Auto) 0.0 % (0.0-3.0) Basophils (%) (Auto) 2.0 % (0.0-2.0) Sodium Level 131 MMOL/L (136-145) L Potassium Level 4.4 MMOL/L (3.5-5.1) Chloride Level 91 MMOL/L (98-107) L Carbon Dioxide Level 28 MMOL/L (21-32) Anion Gap 12 mmol/L (5-15) Blood Urea Nitrogen 78 mg/dL (7-18) H Creatinine 5.8 MG/DL (0.55-1.30) H Estimat Glomerular Filtration Rate 9.8 mL/min (>60) Glucose Level 109 MG/DL (74-106) H Calcium Level 8.7 MG/DL (8.5-10.1) Microbiology Date/Time Source Procedure Growth Status 01/07/19 16:15 Stool Clostridium difficile Toxin Assay - Final Complete Height (Feet): 5 Height (Inches): 4.00 Weight (Pounds): 228 General Appearance: WD/WN, no apparent distress, alert Cardiovascular: normal rate Respiratory/Chest: normal breath sounds, no respiratory distress, other - tracheostomy Abdominal Exam: normal bowel sounds, non tender, soft, GT site - c/d/i Extremities: non-tender Objective Scrotal swelling Right upper extremity swelling Kelvin Briggs NP January 08, 2019 09:33
--- NOTE | 2019-01-08 11:00 | General Progress Note ---
Assessment/Plan Status: unchanged Assessment/Plan: #Right heel diabetic foot ulcer without osteomyelitis #PAD #Right IJ DVT -seen by Podiatry and ID -s/p Vanco x 2 weeks during HD -continue Eliquis -Vascular Surgery and Hematology following #Acute Resp hypercapnic failure s/p tracheostomy #Angioedema #Large right pleural effusion # R side trapped lung -continue trach care -Remains vent-dependant, breathing trials ongoing -Right thoracentesis 01/01/19 with 2.3 lt removed. Post procedure CXR with R trapped lung. -Wean vent per Pulm #End-stage renal disease, on dialysis M-W- #RUE edema #Anasarca, ascites, scrotal edema, pleural effusion due to hypoalbuminemia -HD with UF per Nephrology -s/p PRBC transfusion during HD #Coronary artery disease -continue ASA, Coreg, atorvastatin -cardiology following #Type 2 DM -ISS #Acute metabolic encephalopathy -continue supportive care -Neurology following #history of chronic HCV infection #history of liver transplant -continue Prograf -GI following #Abdominal distension and ascites s/p therapeutic paracentesis -no nausea, vomiting or tenderness -continue supportive care -GI following -s/p paracentesis 12/31/18 4.1 lt #Dysphagia S/p PEG with PEG site cellulitis -s/p antibiotics per ID and GI -continue local wound care -tolerating tube feeds # FULL CODE Subjective Date patient seen: January 08, 2019 Time patient seen: 10:15 ROS Limited/Unobtainable: Yes Cardiovascular: Reports: chest pain Respiratory: Reports: cough Gastrointestinal/Abdominal: Reports: abdominal pain Allergies: Coded Allergies: CEPHALEXIN (Unverified Allergy, Unknown, 02/24/14) SULFAMETHOXAZOLE (Unverified Allergy, Unknown, 02/24/14) TRIMETHOPRIM (Unverified Allergy, Unknown, 02/24/14) Subjective Medicine follow up for acute resp failure, PAD, right heel infected DFU, ESRD, anasarca secondary to hypoalbuminemia, right IJ DVT. S/p 4 liter paracentesis and 2 liter thoracentesis No new issues or complaints overnight. No acute events overnight Objective Last 24 Hour Vital Signs Date Time Temp Pulse Resp B/P (MAP) Pulse Ox O2 Delivery O2 Flow Rate FiO2 01/08/19 09:27 82 25 40 01/08/19 09:12 98 01/08/19 09:12 72 34 40 01/08/19 08:00 Mechanical Ventilator 01/08/19 08:00 40 01/08/19 08:00 97.6 77 26 130/75 (93) 100 01/08/19 08:00 73 01/08/19 06:38 75 24 40 01/08/19 04:43 74 23 40 01/08/19 04:00 98.1 77 22 107/55 (72) 100 01/08/19 04:00 Mechanical Ventilator 01/08/19 04:00 40 01/08/19 03:34 81 01/08/19 03:19 71 23 40 01/08/19 00:31 73 28 40 01/08/19 00:00 97.9 77 24 118/74 (89) 100 01/08/19 00:00 Mechanical Ventilator 01/07/19 23:36 79 01/07/19 23:11 75 21 40 01/07/19 21:12 77 26 40 01/07/19 20:00 97.6 76 25 110/81 (91) 100 01/07/19 20:00 40 01/07/19 20:00 Mechanical Ventilator 01/07/19 19:28 74 25 40 01/07/19 19:05 76 01/07/19 17:05 78 33 40 01/07/19 16:00 Mechanical Ventilator 01/07/19 16:00 40 01/07/19 16:00 97.3 85 28 107/74 (85) 100 01/07/19 15:16 83 01/07/19 15:07 72 30 40 01/07/19 12:38 74 25 40 01/07/19 12:00 97.7 82 26 152/72 (98) 100 01/07/19 12:00 Mechanical Ventilator 01/07/19 12:00 40 01/07/19 11:44 83 Intake and Output 01/07/19 01/08/19 18:59 06:59 Intake Total 220 ml 360 ml Balance 220 ml 360 ml Free Water 60 ml 120 ml Tube Feeding 100 ml 240 ml Other 60 ml # Bowel Movements 2 6 Laboratory Tests 01/08/19 04:43: White Blood Count 6.2, Red Blood Count 3.48L, Hemoglobin 8.8L, Hematocrit 27.7L , Mean Corpuscular Volume 80, Mean Corpuscular Hemoglobin 25.4L, Mean Corpuscular Hemoglobin Concent 31.9L, Red Cell Distribution Width 16.0H, Platelet Count 191, Mean Platelet Volume 6.5, Neutrophils (%) (Auto) 72.0, Lymphocytes (%) (Auto) 14.0L, Monocytes (%) (Auto) 12.0H, Eosinophils (%) (Auto ) 0.0, Basophils (%) (Auto) 2.0, Sodium Level 131L, Potassium Level 4.4, Chloride Level 91L, Carbon Dioxide Level 28, Anion Gap 12, Blood Urea Nitrogen 78H, Creatinine 5.8H, Estimat Glomerular Filtration Rate 9.8, Glucose Level 109H , Calcium Level 8.7 Height (Feet): 5 Height (Inches): 4.00 Weight (Pounds): 228 General Appearance: no apparent distress, alert Neck: normal alignment, supple Cardiovascular: normal rate, regular rhythm, regularly irregular Respiratory/Chest: lungs clear, normal breath sounds, no respiratory distress Dennis Branham MD January 08, 2019 11:00
--- NOTE | 2019-01-08 11:29 | Cardiac Electrophysiology PN ---
Assessment/Plan Assessment/Plan 1. Troponin leak due to renal failure. No CP or SOB 2. CAD. S/P CABG. On Coreg, aspirin and Lipitor 3. NSVT in setting of old DC and CABG. EF 55%. Continue Coreg 4. CHF and right pleural effusion. On hemodialysis. S/P Thoracentesis 5. S/P Right sided [employer] DDD pacemaker with Nl Fx. 6. End-stage renal disease, on hemodialysis per Dr. Stevens S/P Fistulogram by Dr. Salmeron 7. Multilevel AOD LE's with non-healing Right foot ulcer. Had abdominal angiogram per Dr Salmeron Antibiotic per Dr. Landis. FU by Dr. Huizar S/P peripheral intervention by Dr. Salmeron 12/22/18 Right foot on Wound-Vac 8. History of liver transplant on Prograf 9. Respiratory failure, S/P tracheostomy. 10. Pleural effusion. s/p 2300 cc thoracentesis 01/01/19 11. Dysphagia, S/P PEG 12. Low BP. Resolved. XIOMARA RN Subjective Subjective Ne events. Getting HD. In SR. Objective Last 24 Hour Vital Signs Date Time Temp Pulse Resp B/P (MAP) Pulse Ox O2 Delivery O2 Flow Rate FiO2 01/08/19 11:08 73 24 40 01/08/19 09:27 82 25 40 01/08/19 09:12 98 01/08/19 09:12 72 34 40 01/08/19 08:00 Mechanical Ventilator 01/08/19 08:00 40 01/08/19 08:00 97.6 77 26 130/75 (93) 100 01/08/19 08:00 73 01/08/19 06:38 75 24 40 01/08/19 04:43 74 23 40 01/08/19 04:00 98.1 77 22 107/55 (72) 100 01/08/19 04:00 Mechanical Ventilator 01/08/19 04:00 40 01/08/19 03:34 81 01/08/19 03:19 71 23 40 01/08/19 00:31 73 28 40 01/08/19 00:00 97.9 77 24 118/74 (89) 100 01/08/19 00:00 Mechanical Ventilator 01/07/19 23:36 79 01/07/19 23:11 75 21 40 01/07/19 21:12 77 26 40 01/07/19 20:00 97.6 76 25 110/81 (91) 100 01/07/19 20:00 40 01/07/19 20:00 Mechanical Ventilator 01/07/19 19:28 74 25 40 01/07/19 19:05 76 01/07/19 17:05 78 33 40 01/07/19 16:00 Mechanical Ventilator 01/07/19 16:00 40 01/07/19 16:00 97.3 85 28 107/74 (85) 100 01/07/19 15:16 83 01/07/19 15:07 72 30 40 01/07/19 12:38 74 25 40 01/07/19 12:00 97.7 82 26 152/72 (98) 100 01/07/19 12:00 Mechanical Ventilator 01/07/19 12:00 40 01/07/19 11:44 83 Intake and Output 01/07/19 01/08/19 19:00 07:00 Intake Total 235 ml 340 ml Balance 235 ml 340 ml Free Water 60 ml 120 ml Tube Feeding 115 ml 220 ml Other 60 ml # Bowel Movements 2 6 Laboratory Tests Test 01/08/19 04:43 White Blood Count 6.2 K/UL (4.8-10.8) Red Blood Count 3.48 M/UL (4.70-6.10) L Hemoglobin 8.8 G/DL (14.2-18.0) L Hematocrit 27.7 % (42.0-52.0) L Mean Corpuscular Volume 80 FL (80-99) Mean Corpuscular Hemoglobin 25.4 PG (27.0-31.0) L Mean Corpuscular Hemoglobin Concent 31.9 G/DL (32.0-36.0) L Red Cell Distribution Width 16.0 % (11.6-14.8) H Platelet Count 191 K/UL (150-450) Mean Platelet Volume 6.5 FL (6.5-10.1) Neutrophils (%) (Auto) 72.0 % (45.0-75.0) Lymphocytes (%) (Auto) 14.0 % (20.0-45.0) L Monocytes (%) (Auto) 12.0 % (1.0-10.0) H Eosinophils (%) (Auto) 0.0 % (0.0-3.0) Basophils (%) (Auto) 2.0 % (0.0-2.0) Sodium Level 131 MMOL/L (136-145) L Potassium Level 4.4 MMOL/L (3.5-5.1) Chloride Level 91 MMOL/L (98-107) L Carbon Dioxide Level 28 MMOL/L (21-32) Anion Gap 12 mmol/L (5-15) Blood Urea Nitrogen 78 mg/dL (7-18) H Creatinine 5.8 MG/DL (0.55-1.30) H Estimat Glomerular Filtration Rate 9.8 mL/min (>60) Glucose Level 109 MG/DL (74-106) H Calcium Level 8.7 MG/DL (8.5-10.1) Microbiology Date/Time Source Procedure Growth Status 01/07/19 16:15 Stool Clostridium difficile Toxin Assay - Final Complete Objective HEAD AND NECK: No JVD. Tracheostomy intact LUNGS: Clear CARDIOVASCULAR: Irregular S1 and S2 with no gallop. Sternotomy is intact Pacemaker in the right subclavian ABDOMEN: Soft. PEG in place EXTREMITIES: 1+ pitting edema. Right heel in dressing and connected to WoundVac Shivam Sharpe MD January 08, 2019 11:29
[2019-01-08 12:00] VITALS: BP 134/54
--- NOTE | 2019-01-08 12:23 | Hematology/Onc Progress Note ---
Assessment/Plan Assessment/Plan Assessment and Recs: # Acute non-occlusive dvt, right extremity ultrasound (acute non-occlusive DVT in internal jugular) --> currently is on eliquis 2.5mg po bid --> do not recommend a SVC filter --> given prior bleeding risk, hold off on heparin gtt --> vasc surgeon is aware, seek recs # Anemia of chronic disease due to underlying chronic medical issues --> ferritin is 633, tibc is low --> No evidence of hemolysis is noted, peripheral smear has been reviewed. --> Epogen can be consider if hgb downtrends --> Medications have been reviewed --> evaluate with Gi team prn --> transfuse if hgb is < 7 (will trend CBC daily) --> hgb trend 11.2-->10.9-->10.8-->10.7-->10.2-->9.7-->9.7-->8.5-->9-->9.2-->8.4 -->7.7-->8.8 --> s/p transfusion on 01/06 # Failure to thrive is likely related to poor overall status, poor functional status --> with multiple decub ulcerations that are noted, seen by id/surgery --> s/p trach as well --> cea is wnl # Coagulopathy likely secondary to decreased Vitk dependent cofactors (high INR , PT) --> monitor closely for any evidence of bleeding. Currently is on eliquis --> VIT K on prn basis sq can be administered --> recently has improved inr 1.2-->1.1-->1.2 # Acute respiratory failure is now s/p trach to vent --> as per surgery recs # Ground glass opacities present on imaging of lung --> with pleural effusions, s/p drainage at this time --> no evidence for malignancy is noted --> as per pulm/id # Pleural effusion --> s/p thoracentesis, s/p paracentesis 12/31 --> no evidence of malignancy # Hyperkalemia --> kayxelate on prn basis per renal # Renal failure --> per renal recs, appreciated --> getting hd as per schedule # Altered level of consciousness --> currently as per baseline # PAD off heparin gtt and now on eliquis --> per vasc and cards --> 12/22 s/p right leg angiogram with intervention --> on eliquis, continue # Gt tube cellulitis, on topical abx as per id around site The timing of this note does not necessarily reflect the time of the patient was seen. Greatly appreciate consultation! Subjective Constitutional: Denies: no symptoms, chills, fever, malaise, weakness, other HEENT: Denies: no symptoms, eye pain, blurred vision, tearing, double vision, ear pain, ear discharge, nose pain, nose congestion, throat pain, throat swelling, mouth pain, mouth swelling, other Cardiovascular: Denies: no symptoms, chest pain, edema, irregular heart rate, lightheadedness, palpitations, syncope, other Respiratory: Denies: no symptoms, cough, shortness of breath, SOB with excertion, SOB at rest, sputum, wheezing, other 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: Denies: no symptoms, anxiety, depressed, emotional problems, headache, numbness, paresthesia, pre-existing deficit, seizure, tingling, tremors, weakness, other Endocrine: Denies: no symptoms, excessive sweating, flushing, intolerance to cold, intolerance to heat, increased hunger, increased thirst, increased urine, unexplained weight gain, unexplained weight loss, other Hematologic/Lymphatic: Denies: no symptoms, anemia, easy bleeding, easy bruising, adenopathy, other Allergies: Coded Allergies: CEPHALEXIN (Unverified Allergy, Unknown, 02/24/14) SULFAMETHOXAZOLE (Unverified Allergy, Unknown, 02/24/14) TRIMETHOPRIM (Unverified Allergy, Unknown, 02/24/14) Subjective 11/30: comfortable, on abx, no complaints, on t-piece 12/01: to have hd done potentially tomorrow, is more alert/awake 12/02: no major bleeding, hgb remains approx 11, no changes 12/03: no events, breathing mildly better, hgb is improved 12/04: on vent/trach, no major changes, sr ekg 12/10: small amount of secretions, on trach/vent, no issues otherwise 12/11: no major issues, no complaints, labs reviewed, no sig changes 12/13: no events to report, no fevers or chills, awaiting placement 12/14: no changes, no major events to report, no fevers or chills 12/15: pending placement, getting gt feeds and hd as per renal 12/16: labs have been reviewed, cbc noted, no changes 12/17: no events, no fevers, no cp, hgb remains stable 12/18: restarted on heparin gtt, seen by pulcamelia, cards 12/20: continues to be on heparin gtt, no bleeding reported, no f/c 12/21: hd for today, no fevers or chils, off hep gtt on eliquis 12/22: to get hd tomorrow, today is s/p right leg angiogram with intervention 12/23: hgb remins stable, no fevers or chills reported 12/24: no events, no bleeding, vitals reviewed, cbc stable 12/25: no events, no bleeding, on vent, hgb 9 12/27: no changes, no f/c, no night swearts, seen with other providers 12/28: right extremity ultrasound (acute non-occlusive DVT in internal jugular, on eliquis 12/29: no events, no night sweats, seen by gi, no bleeding 12/30: cbc has been reviewed, no f/c, no night sweats reported 12/31: no events, eliquis is on hold cbc has been reviewed, bp elevated 01/01: no fevers or chills, cbc reviewed, hgb 9.3, getting HD 01/02: no events noted, getting norco for pain, hgb stable 01/04: not events to report, no bleeding, refusing ivl at this time, cbc reviewed 01/05: no fevers or chills noted, s/p trach/vent, no f/c, no chills noted 01/06: no events, to get 1 unit prbc today, renal seen, on abx 01/07: hd for tomorrow, seen by renal, no events, cbc reviewed 01/08: getting Hd today, seen by renal, no major events, in sr Objective Objective Current Medications Medications (Trade) Dose Ordered Sig/Aleks Route PRN Reason Start Time Stop Time Status Last Admin Dose Admin Acetaminophen (Tylenol) 650 mg Q6H PRN GT Mild Pain/Temp > 100.5 12/21/18 16:00 01/20/19 15:59 01/05/19 20:46 Acetaminophen/ Hydrocodone Bitart ([place] 5/325) 1 tab Q4H PRN ORAL Moderate Pain (Pain Scale 4-6) 01/05/19 14:30 01/12/19 14:29 01/07/19 23:35 Apixaban (Eliquis) 2.5 mg BID GT 01/01/19 21:00 01/31/19 20:59 01/08/19 08:31 Collagenase (Santyl) 1 applic DAILY TOPIC 12/29/18 09:00 01/28/19 08:59 01/08/19 08:32 Dextrose (Dextrose 50%) 25 ml Q30M PRN IV Hypoglycemia 12/31/18 23:00 01/30/19 22:59 Dextrose (Dextrose 50%) 50 ml Q30M PRN IV Hypoglycemia 12/31/18 23:00 01/30/19 22:59 Epoetin Vini (Epoetin Vini(ESRD on dialysis)) 10,000 unit FRI-FRI-FRI SUBQ 01/06/19 21:00 02/05/19 20:59 01/06/19 20:33 Escitalopram Oxalate (Lexapro) 20 mg DAILY GT 01/05/19 09:00 02/04/19 08:59 01/08/19 08:32 Hydralazine HCl (Apresoline) 25 mg Q4H PRN GT bp over 160 syst 01/06/19 15:00 02/05/19 14:59 Insulin Aspart (NovoLOG) EVERY 6 HOURS SUBQ 01/01/19 00:00 01/31/19 00:00 01/08/19 05:35 Loperamide HCl (Imodium) 2 mg Q6H PRN GT Diarrhea 01/07/19 11:00 02/06/19 10:59 01/08/19 04:14 Metoclopramide HCl (Reglan) 5 mg Q6H PRN IVP Nausea & Vomiting 12/30/18 17:30 01/29/19 17:29 01/05/19 20:45 Mirtazapine (Remeron) 15 mg BEDTIME GT 12/21/18 21:00 01/20/19 20:59 01/07/19 20:49 Tacrolimus (Prograf) 2 mg MoWeFr@0000,1200 ORAL 12/28/18 00:00 01/27/19 00:00 01/07/19 23:35 Tacrolimus (Prograf) 2 mg SuTuThSa@0900,2100 ORAL 12/26/18 21:00 01/25/19 20:59 01/07/19 20:49 Last 24 Hour Vital Signs Date Time Temp Pulse Resp B/P (MAP) Pulse Ox O2 Delivery O2 Flow Rate FiO2 01/08/19 12:00 Mechanical Ventilator 01/08/19 12:00 40 01/08/19 11:08 73 24 40 01/08/19 09:27 82 25 40 01/08/19 09:12 98 01/08/19 09:12 72 34 40 01/08/19 08:00 Mechanical Ventilator 01/08/19 08:00 40 01/08/19 08:00 97.6 77 26 130/75 (93) 100 01/08/19 08:00 73 01/08/19 06:38 75 24 40 01/08/19 04:43 74 23 40 01/08/19 04:00 98.1 77 22 107/55 (72) 100 01/08/19 04:00 Mechanical Ventilator 01/08/19 04:00 40 01/08/19 03:34 81 01/08/19 03:19 71 23 40 01/08/19 00:31 73 28 40 01/08/19 00:00 97.9 77 24 118/74 (89) 100 01/08/19 00:00 Mechanical Ventilator 01/07/19 23:36 79 01/07/19 23:11 75 21 40 01/07/19 21:12 77 26 40 01/07/19 20:00 97.6 76 25 110/81 (91) 100 01/07/19 20:00 40 01/07/19 20:00 Mechanical Ventilator 01/07/19 19:28 74 25 40 01/07/19 19:05 76 01/07/19 17:05 78 33 40 01/07/19 16:00 Mechanical Ventilator 01/07/19 16:00 40 01/07/19 16:00 97.3 85 28 107/74 (85) 100 01/07/19 15:16 83 01/07/19 15:07 72 30 40 5/23/19 12:38 74 25 40 01/07/19 12:00 97.7 82 26 152/72 (98) 100 01/07/19 12:00 Mechanical Ventilator 01/07/19 12:00 40 01/07/19 11:44 83 01/07/19 10:47 68 32 40 01/07/19 10:46 99 01/07/19 09:21 70 24 40 01/07/19 08:00 97.7 72 24 133/100 (111) 100 01/07/19 08:00 40 01/07/19 08:00 Mechanical Ventilator 01/07/19 07:36 68 24 40 01/07/19 07:29 74 01/07/19 05:30 78 28 40 01/07/19 04:00 40 01/07/19 04:00 Mechanical Ventilator 01/07/19 04:00 97.5 80 24 113/87 (96) 100 01/07/19 03:30 71 21 40 01/07/19 03:25 80 01/07/19 01:08 72 23 40 01/07/19 00:00 97.7 80 26 100/77 (85) 100 01/07/19 00:00 Mechanical Ventilator 01/06/19 23:45 80 01/06/19 23:21 77 25 40 01/06/19 21:30 62 20 40 01/06/19 20:00 97.3 80 25 153/86 (108) 100 01/06/19 20:00 40 01/06/19 20:00 Mechanical Ventilator 01/06/19 19:30 65 21 40 01/06/19 19:28 81 01/06/19 17:00 67 24 40 01/06/19 16:00 98.1 76 22 135/82 (99) 100 01/06/19 16:00 40 01/06/19 16:00 76 01/06/19 16:00 Mechanical Ventilator 01/06/19 15:24 78 24 40 01/06/19 13:10 62 25 40 Intake and Output 01/07/19 01/08/19 19:00 07:00 Intake Total 235 ml 360 ml Balance 235 ml 360 ml Free Water 60 ml 120 ml Tube Feeding 115 ml 240 ml Other 60 ml # Bowel Movements 2 6 Labs Test 01/06/19 04:15 01/06/19 16:00 01/07/19 03:25 01/08/19 04:43 White Blood Count 8.5 K/UL (4.8-10.8) 7.7 K/UL (4.8-10.8) 6.2 K/UL (4.8-10.8) Red Blood Count 3.07 M/UL (4.70-6.10) 3.59 M/UL (4.70-6.10) 3.48 M/UL (4.70-6.10) Hemoglobin 7.7 G/DL (14.2-18.0) 9.3 G/DL (14.2-18.0) 8.8 G/DL (14.2-18.0) Hematocrit 24.5 % (42.0-52.0) 28.8 % (42.0-52.0) 27.7 % (42.0-52.0) Mean Corpuscular Volume 80 FL (80-99) 80 FL (80-99) 80 FL (80-99) Mean Corpuscular Hemoglobin 25.0 PG (27.0-31.0) 25.9 PG (27.0-31.0) 25.4 PG (27.0-31.0) Mean Corpuscular Hemoglobin Concent 31.4 G/DL (32.0-36.0) 32.2 G/DL (32.0-36.0) 31.9 G/DL (32.0-36.0) Red Cell Distribution Width 16.5 % (11.6-14.8) 15.8 % (11.6-14.8) 16.0 % (11.6-14.8) Platelet Count 178 K/UL (150-450) 189 K/UL (150-450) 191 K/UL (150-450) Mean Platelet Volume 7.0 FL (6.5-10.1) 7.6 FL (6.5-10.1) 6.5 FL (6.5-10.1) Neutrophils (%) (Auto) % (45.0-75.0) 76.8 % (45.0-75.0) 72.0 % (45.0-75.0) Lymphocytes (%) (Auto) % (20.0-45.0) 12.6 % (20.0-45.0) 14.0 % (20.0-45.0) Monocytes (%) (Auto) % (1.0-10.0) 9.9 % (1.0-10.0) 12.0 % (1.0-10.0) Eosinophils (%) (Auto) % (0.0-3.0) 0.0 % (0.0-3.0) 0.0 % (0.0-3.0) Basophils (%) (Auto) % (0.0-2.0) 0.7 % (0.0-2.0) 2.0 % (0.0-2.0) Differential Total Cells Counted 100 Neutrophils % (Manual) 77 % (45-75) Lymphocytes % (Manual) 13 % (20-45) Monocytes % (Manual) 10 % (1-10) Eosinophils % (Manual) 0 % (0-3) Basophils % (Manual) 0 % (0-2) Band Neutrophils 0 % (0-8) Platelet Estimate Adequate Platelet Morphology Normal Hypochromasia 3+ Anisocytosis 1+ Sodium Level 130 MMOL/L (136-145) 133 MMOL/L (136-145) 131 MMOL/L (136-145) Potassium Level 4.2 MMOL/L (3.5-5.1) 4.4 MMOL/L (3.5-5.1) 4.4 MMOL/L (3.5-5.1) Chloride Level 90 MMOL/L (98-107) 92 MMOL/L (98-107) 91 MMOL/L (98-107) Carbon Dioxide Level 29 MMOL/L (21-32) 29 MMOL/L (21-32) 28 MMOL/L (21-32) Anion Gap 11 mmol/L (5-15) 12 mmol/L (5-15) 12 mmol/L (5-15) Blood Urea Nitrogen 84 mg/dL (7-18) 67 mg/dL (7-18) 78 mg/dL (7-18) Creatinine 5.8 MG/DL (0.55-1.30) 5.1 MG/DL (0.55-1.30) 5.8 MG/DL (0.55-1.30) Estimat Glomerular Filtration Rate 9.8 mL/min (>60) 11.4 mL/min (>60) 9.8 mL/min (>60) Glucose Level 108 MG/DL (74-106) 86 MG/DL (74-106) 109 MG/DL (74-106) Calcium Level 8.7 MG/DL (8.5-10.1) 8.6 MG/DL (8.5-10.1) 8.7 MG/DL (8.5-10.1) Total Bilirubin 0.4 MG/DL (0.2-1.0) 0.5 MG/DL (0.2-1.0) Aspartate Amino Transf (AST/SGOT) 15 U/L (15-37) 15 U/L (15-37) Alanine Aminotransferase (ALT/SGPT) 6 U/L (12-78) 6 U/L (12-78) Alkaline Phosphatase 154 U/L (46-116) 170 U/L (46-116) Total Protein 6.1 G/DL (6.4-8.2) 6.6 G/DL (6.4-8.2) Albumin 1.9 G/DL (3.4-5.0) 2.0 G/DL (3.4-5.0) Globulin 4.2 g/dL Albumin/Globulin Ratio 0.5 (1.0-2.7) Hepatitis A IgM Antibody Negative (Negative) Hepatitis B Surface Antigen Negative (Negative) Hepatitis B Core IgM Antibody Negative (Negative) Hepatitis C Antibody 8.2 s/co ratio (0.0-0.9) Uric Acid 4.6 MG/DL (2.6-7.2) Phosphorus Level 4.6 MG/DL (2.5-4.9) Magnesium Level 2.2 MG/DL (1.8-2.4) Direct Bilirubin 0.2 MG/DL (0.0-0.3) Gamma Glutamyl Transpeptidase 54 U/L (5-85) Micro Microbiology Date/Time Source Procedure Growth Status 01/07/19 16:15 Stool Clostridium difficile Toxin Assay - Final Complete Height (Feet): 5 Height (Inches): 4.00 Weight (Pounds): 228 Objective PE General Appearance: mild distress, moderate distress Lines, tubes and drains: peripheral HEENT: EOMI, thrush, tonsils swollen ++trach Neck: normal inspection Respiratory/Chest: decreased breath sounds, accessory muscle use Cardiovascular/Chest: tachycardia Abdomen: soft, no organomegaly, no mass, ++ peg Extremities: other Skin Exam: warm/dry, rash Neurologic: alert, responsive Zacarias Khoury MD January 08, 2019 12:23
--- NOTE | 2019-01-08 12:24 | Infectious Diseases Prog Note ---
Assessment/Plan Problems: (1) Diarrhea Assessment & Plan: rule out infectious etiology , stool for C diff toxin is negative , stool culture is pending , avoid laxatives, monitor clinically , encourage hydration (2) Foot ulcer Assessment & Plan: with MRSA grew out of it in the past, S/P vancomycin treatment with HD for two weeks, had vascular eval with revascularization to the right leg , S/P ulcer resection by botany teacher . deep ulcer culture grew MRSA and E.coli with diphtheroids , possible colonization , with no evidence of active infection as per discussion with podiatry , no need to be started on antibiotics for now , will continue to monitor clinically and make recommendations as necessary . bone scan ruled out osteomyelitis of the heel before, couldn't do an MRI since on the vent . continue local wound care as per botany teacher . (3) Thrush, oral Assessment & Plan: continue local nystatin as needed , S/P micafungin for three weeks empirically (4) HCV antibody positive Assessment & Plan: no evidence of active infection, with undetectable viral load , suspect due to previous infection , cleared, S/P liver transplant . (5) DM (diabetes mellitus) Assessment & Plan: recommend tight glycemic control to keep blood glucose between 100-140 (6) CHF (congestive heart failure) Assessment & Plan: on HD , renal is following, monitor daily weight (7) Severe tongue swelling Assessment & Plan: improving , s/p tracheostomy to protect his airway since respiratory status worsened . now improving, pulmonary is following (8) Pleural effusion Assessment & Plan: recurrent on the right, with lung collapse , S/P thoracentesis X 3 now with removal of 2.3 liters of clear fluids on 12/31/18 . await fluids culture and gram stain, with PH and Glucose level . PREVIOUS culture were negative with negative cytology. pulmonary is following (9) Ascites Assessment & Plan: S/P paracentesis with removal of 4.1 liters of fluids, culture so far is negative Assessment/Plan will continue to monitor patient on daily basis and make recommendations as necessary since he is high risk for recurrent infection Subjective Constitutional: Reports: no symptoms HEENT: Reports: no symptoms Respiratory: Reports: no symptoms Breasts: Reports: no symptoms Cardiovascular: Reports: no symptoms Gastrointestinal/Abdominal: Reports: no symptoms Genitourinary: Reports: no symptoms Neurologic: Reports: no symptoms Psychiatric: Reports: no symptoms Skin: Reports: no symptoms Endocrine: Reports: no symptoms Hematologic: Reports: no symptoms Musculoskeletal: Reports: no symptoms Allergies: Coded Allergies: CEPHALEXIN (Unverified Allergy, Unknown, 02/24/14) SULFAMETHOXAZOLE (Unverified Allergy, Unknown, 02/24/14) TRIMETHOPRIM (Unverified Allergy, Unknown, 02/24/14) Subjective he was comfortable, lying in bed, denied any fever or chills, no significant secretions, no SOB . has heel pain at the surgery site with wound VAC in place , but no draining coming out . developed diarrhea last night , nonbloody Objective Vital Signs Last 24 Hour Vital Signs Date Time Temp Pulse Resp B/P (MAP) Pulse Ox O2 Delivery O2 Flow Rate FiO2 01/08/19 12:00 Mechanical Ventilator 01/08/19 12:00 40 01/08/19 11:08 73 24 40 01/08/19 09:27 82 25 40 01/08/19 09:12 98 01/08/19 09:12 72 34 40 01/08/19 08:00 Mechanical Ventilator 01/08/19 08:00 40 01/08/19 08:00 97.6 77 26 130/75 (93) 100 01/08/19 08:00 73 01/08/19 06:38 75 24 40 01/08/19 04:43 74 23 40 01/08/19 04:00 98.1 77 22 107/55 (72) 100 01/08/19 04:00 Mechanical Ventilator 01/08/19 04:00 40 01/08/19 03:34 81 01/08/19 03:19 71 23 40 01/08/19 00:31 73 28 40 01/08/19 00:00 97.9 77 24 118/74 (89) 100 01/08/19 00:00 Mechanical Ventilator 01/07/19 23:36 79 01/07/19 23:11 75 21 40 01/07/19 21:12 77 26 40 01/07/19 20:00 97.6 76 25 110/81 (91) 100 01/07/19 20:00 40 01/07/19 20:00 Mechanical Ventilator 01/07/19 19:28 74 25 40 01/07/19 19:05 76 01/07/19 17:05 78 33 40 01/07/19 16:00 Mechanical Ventilator 01/07/19 16:00 40 01/07/19 16:00 97.3 85 28 107/74 (85) 100 01/07/19 15:16 83 01/07/19 15:07 72 30 40 01/07/19 12:38 74 25 40 Height (Feet): 5 Height (Inches): 4.00 Weight (Pounds): 228 General Appearance: WD/WN, no acute distress HEENT: normocephalic, atraumatic, anicteric, mucous membranes moist, PERRL, pharynx normal, supple, no JVD, status post trach Respiratory/Chest: chest wall non-tender, lungs clear, normal breath sounds, no respiratory distress, no accessory muscle use Cardiovascular: normal peripheral pulses, normal rate, regular rhythm, no gallop/murmur, no JVD Abdomen: normal bowel sounds, soft, non tender, no organomegaly, non distended , no mass, no scars Extremities: no cyanosis, no clubbing Skin: no rash, no lesions, ulcers 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: 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 normal, alert, responsive Lymphatic: no neck adenopathy, no groin adenopathy Musculoskeletal: normal muscle bulk, no effusion Microbiology Date/Time Source Procedure Growth Status 01/07/19 16:15 Stool Clostridium difficile Toxin Assay - Final Complete Laboratory Tests Test 01/08/19 04:43 White Blood Count 6.2 K/UL (4.8-10.8) Red Blood Count 3.48 M/UL (4.70-6.10) L Hemoglobin 8.8 G/DL (14.2-18.0) L Hematocrit 27.7 % (42.0-52.0) L Mean Corpuscular Volume 80 FL (80-99) Mean Corpuscular Hemoglobin 25.4 PG (27.0-31.0) L Mean Corpuscular Hemoglobin Concent 31.9 G/DL (32.0-36.0) L Red Cell Distribution Width 16.0 % (11.6-14.8) H Platelet Count 191 K/UL (150-450) Mean Platelet Volume 6.5 FL (6.5-10.1) Neutrophils (%) (Auto) 72.0 % (45.0-75.0) Lymphocytes (%) (Auto) 14.0 % (20.0-45.0) L Monocytes (%) (Auto) 12.0 % (1.0-10.0) H Eosinophils (%) (Auto) 0.0 % (0.0-3.0) Basophils (%) (Auto) 2.0 % (0.0-2.0) Sodium Level 131 MMOL/L (136-145) L Potassium Level 4.4 MMOL/L (3.5-5.1) Chloride Level 91 MMOL/L (98-107) L Carbon Dioxide Level 28 MMOL/L (21-32) Anion Gap 12 mmol/L (5-15) Blood Urea Nitrogen 78 mg/dL (7-18) H Creatinine 5.8 MG/DL (0.55-1.30) H Estimat Glomerular Filtration Rate 9.8 mL/min (>60) Glucose Level 109 MG/DL (74-106) H Calcium Level 8.7 MG/DL (8.5-10.1) Current Medications Medications (Trade) Dose Ordered Sig/Aleks Route PRN Reason Start Time Stop Time Status Last Admin Dose Admin Acetaminophen (Tylenol) 650 mg Q6H PRN GT Mild Pain/Temp > 100.5 12/21/18 16:00 01/20/19 15:59 01/05/19 20:46 Acetaminophen/ Hydrocodone Bitart ([place] 5/325) 1 tab Q4H PRN ORAL Moderate Pain (Pain Scale 4-6) 01/05/19 14:30 01/12/19 14:29 01/07/19 23:35 Apixaban (Eliquis) 2.5 mg BID GT 01/01/19 21:00 01/31/19 20:59 01/08/19 08:31 Collagenase (Santyl) 1 applic DAILY TOPIC 12/29/18 09:00 01/28/19 08:59 01/08/19 08:32 Dextrose (Dextrose 50%) 25 ml Q30M PRN IV Hypoglycemia 12/31/18 23:00 01/30/19 22:59 Dextrose (Dextrose 50%) 50 ml Q30M PRN IV Hypoglycemia 12/31/18 23:00 01/30/19 22:59 Epoetin Vini (Epoetin Vini(ESRD on dialysis)) 10,000 unit FRI-FRI-FRI SUBQ 01/06/19 21:00 02/05/19 20:59 01/06/19 20:33 Escitalopram Oxalate (Lexapro) 20 mg DAILY GT 01/05/19 09:00 02/04/19 08:59 01/08/19 08:32 Hydralazine HCl (Apresoline) 25 mg Q4H PRN GT bp over 160 syst 01/06/19 15:00 02/05/19 14:59 Insulin Aspart (NovoLOG) EVERY 6 HOURS SUBQ 01/01/19 00:00 01/31/19 00:00 01/08/19 05:35 Loperamide HCl (Imodium) 2 mg Q6H PRN GT Diarrhea 01/07/19 11:00 02/06/19 10:59 01/08/19 04:14 Metoclopramide HCl (Reglan) 5 mg Q6H PRN IVP Nausea & Vomiting 12/30/18 17:30 01/29/19 17:29 01/05/19 20:45 Mirtazapine (Remeron) 15 mg BEDTIME GT 12/21/18 21:00 01/20/19 20:59 01/07/19 20:49 Tacrolimus (Prograf) 2 mg MoWeFr@0000,1200 ORAL 12/28/18 00:00 01/27/19 00:00 01/07/19 23:35 Tacrolimus (Prograf) 2 mg SuTuThSa@0900,2100 ORAL 12/26/18 21:00 01/25/19 20:59 01/07/19 20:49 Francois Landis M.D. January 08, 2019 12:24
--- NOTE | 2019-01-08 12:31 | Nephrology Progress Note ---
Assessment/Plan Problem List: (1) ESRD (end stage renal disease) on dialysis (2) Foot ulcer (3) CHF (congestive heart failure) Assessment: Ej Fx 20 % (4) Pacemaker (5) Acute respiratory failure Assessment: with Co2 retention (6) G-tube site cellulitis Assessment ESRD with high K and SOB on admit Foot ulcer, likely infected High Troponin likely NSTMI Pacer , Pleural effusion s/p CABGS s/p Liver transplant Plan dialysis 01/04 and 01/06 and 01/08 labs before HD noted BP low- improved on midodrine per consultants, GI GT site infection, topical antibiotic Neuro note appreciated placement in process vascular esteban regarding heel ulcer per Dr Mcgill pain med change to dilaudid GT Now has tracheostomy and PEG Adjust BP meds add nitro paste TID Antibiotics by ID per cardio and ID Podiatry and Vascular surgical fu ? DC planning? Subjective ROS Limited/Unobtainable: No Constitutional: Reports: malaise Objective Objective Last 24 Hour Vital Signs Date Time Temp Pulse Resp B/P (MAP) Pulse Ox O2 Delivery O2 Flow Rate FiO2 01/08/19 12:00 Mechanical Ventilator 01/08/19 12:00 40 01/08/19 11:08 73 24 40 01/08/19 09:27 82 25 40 01/08/19 09:12 98 01/08/19 09:12 72 34 40 01/08/19 08:00 Mechanical Ventilator 01/08/19 08:00 40 01/08/19 08:00 97.6 77 26 130/75 (93) 100 01/08/19 08:00 73 01/08/19 06:38 75 24 40 01/08/19 04:43 74 23 40 01/08/19 04:00 98.1 77 22 107/55 (72) 100 01/08/19 04:00 Mechanical Ventilator 01/08/19 04:00 40 01/08/19 03:34 81 01/08/19 03:19 71 23 40 01/08/19 00:31 73 28 40 01/08/19 00:00 97.9 77 24 118/74 (89) 100 01/08/19 00:00 Mechanical Ventilator 01/07/19 23:36 79 01/07/19 23:11 75 21 40 01/07/19 21:12 77 26 40 01/07/19 20:00 97.6 76 25 110/81 (91) 100 01/07/19 20:00 40 01/07/19 20:00 Mechanical Ventilator 01/07/19 19:28 74 25 40 01/07/19 19:05 76 01/07/19 17:05 78 33 40 01/07/19 16:00 Mechanical Ventilator 01/07/19 16:00 40 01/07/19 16:00 97.3 85 28 107/74 (85) 100 01/07/19 15:16 83 01/07/19 15:07 72 30 40 01/07/19 12:38 74 25 40 Intake and Output 01/07/19 01/08/19 19:00 07:00 Intake Total 235 ml 360 ml Balance 235 ml 360 ml Free Water 60 ml 120 ml Tube Feeding 115 ml 240 ml Other 60 ml # Bowel Movements 2 6 Laboratory Tests 01/08/19 04:43: White Blood Count 6.2, Red Blood Count 3.48L, Hemoglobin 8.8L, Hematocrit 27.7L , Mean Corpuscular Volume 80, Mean Corpuscular Hemoglobin 25.4L, Mean Corpuscular Hemoglobin Concent 31.9L, Red Cell Distribution Width 16.0H, Platelet Count 191, Mean Platelet Volume 6.5, Neutrophils (%) (Auto) 72.0, Lymphocytes (%) (Auto) 14.0L, Monocytes (%) (Auto) 12.0H, Eosinophils (%) (Auto ) 0.0, Basophils (%) (Auto) 2.0, Sodium Level 131L, Potassium Level 4.4, Chloride Level 91L, Carbon Dioxide Level 28, Anion Gap 12, Blood Urea Nitrogen 78H, Creatinine 5.8H, Estimat Glomerular Filtration Rate 9.8, Glucose Level 109H , Calcium Level 8.7 Height (Feet): 5 Height (Inches): 4.00 Weight (Pounds): 228 General Appearance: no apparent distress Neck: other - trach Respiratory/Chest: decreased breath sounds Abdomen: distended Objective no other change Nakul Stevens MD January 08, 2019 12:31
--- NOTE | 2019-01-08 15:29 | Cardiology Report ---
APPROVED REPORT EKG Measurement Heart [id number] Atrial fibrillation. Ventricular paced rhythm. Electronic pacemaker Abnormal ECG
[2019-01-08 16:00] VITALS: BP 147/85
[2019-01-08] MEDS: Acetaminophen 650mg/20.3ml GT PRN (17:28)
--- NOTE | 2019-01-08 18:15 | Progress Note ---
DATE: 01/08/2019 SUBJECTIVE: The patient's mental condition is unchanged. He was receiving dialysis today. Continues to be depressed. Has anhedonia, hopelessness, helplessness, and poor energy. MENTAL STATUS EXAMINATION: The patient is alert and oriented times self, place, and situation. Mood is depressed. Affect is constricted. Congruent with mood. Thought process is concrete. Thought content, no suicidal or homicidal ideations. ASSESSMENT: 1. Major depressive disorder. 2. Anxiety disorder. PLAN: We will continue current medications. No medication changes. Jeffrey Lala M.D. DR: LINDA JOB#: [id number] CC:
[2019-01-08 20:00] VITALS: BP 152/81
[2019-01-08] MEDS: Epoetin Alfa-EPBX(ESRD on dialysis)10,000 unit/ml vial SUBQ SCH (20:38)
[2019-01-08] MEDS: HYDROcodone/Acetamin 5/325 tab ORAL PRN (23:46)
[2019-01-09] VITALS (7 sets, daily range): BP systolic 91–165; BP diastolic 65–97
[2019-01-09] MEDS: NovoLOG Insulin Flexpen SUBQ SCH ×3 (05:01→18:05)
[2019-01-09 06:11] LABS: BASOPHILS % (AUTO) 0.9 % (0.0-2.0); HEMATOCRIT 28.7 % (42.0-52.0); HEMOGLOBIN 9.1 G/DL (14.2-18.0); MEAN CORPUSCULAR VOLUME 80 FL (80-99); MONOCYTES % (AUTO) 10.9 % (1.0-10.0); NEUTROPHILS % (AUTO) 71.3 % (45.0-75.0); PLATELET COUNT 171 K/UL (150-450); RED BLOOD COUNT 3.57 M/UL (4.70-6.10); RED CELL DISTRIBUTION WIDTH 16.1 % (11.6-14.8); WHITE BLOOD COUNT 5.5 K/UL (4.8-10.8)
[2019-01-09 06:27] LABS: ANION GAP 11 mmol/L (5-15); BLOOD UREA NITROGEN 61 mg/dL (7-18); CALCIUM 9.1 MG/DL (8.5-10.1); CARBON DIOXIDE 28 MMOL/L (21-32); CHLORIDE 94 MMOL/L (98-107); CREATININE 5.1 MG/DL (0.55-1.30); SODIUM 133 MMOL/L (136-145)
--- NOTE | 2019-01-09 07:45 | General Progress Note ---
Assessment/Plan Status: unchanged Assessment/Plan: #Right heel diabetic foot ulcer without osteomyelitis #PAD #Right IJ DVT -seen by Podiatry and ID -s/p Vanco x 2 weeks during HD -continue Eliquis -Vascular Surgery and Hematology following #Acute Resp hypercapnic failure s/p tracheostomy #Angioedema #Large right pleural effusion # R side trapped lung -continue trach care -Remains vent-dependant, breathing trials ongoing -Right thoracentesis 01/01/19 with 2.3 lt removed. Post procedure CXR with R trapped lung. -Wean vent per Pulm #End-stage renal disease, on dialysis M-W- #RUE edema #Anasarca, ascites, scrotal edema, pleural effusion due to hypoalbuminemia -HD with UF per Nephrology -s/p PRBC transfusion during HD #Coronary artery disease -continue ASA, Coreg, atorvastatin -cardiology following #Type 2 DM -ISS #Acute metabolic encephalopathy -continue supportive care -Neurology following #history of chronic HCV infection #history of liver transplant -continue Prograf -GI following #Abdominal distension and ascites s/p therapeutic paracentesis -no nausea, vomiting or tenderness -continue supportive care -GI following -s/p paracentesis 12/31/18 4.1 lt #Dysphagia S/p PEG with PEG site cellulitis -s/p antibiotics per ID and GI -continue local wound care -tolerating tube feeds # FULL CODE Subjective Date patient seen: January 09, 2019 ROS Limited/Unobtainable: No Allergies: Coded Allergies: CEPHALEXIN (Unverified Allergy, Unknown, 02/24/14) SULFAMETHOXAZOLE (Unverified Allergy, Unknown, 02/24/14) TRIMETHOPRIM (Unverified Allergy, Unknown, 02/24/14) All Systems: reviewed and negative except above Subjective Medicine follow up for acute resp failure, PAD, right heel infected DFU, ESRD, anasarca secondary to hypoalbuminemia, right IJ DVT. S/p 4 liter paracentesis and 2 liter thoracentesis No new issues or complaints overnight. No acute events overnight Objective Last 24 Hour Vital Signs Date Time Temp Pulse Resp B/P (MAP) Pulse Ox O2 Delivery O2 Flow Rate FiO2 01/09/19 07:13 81 27 40 01/09/19 04:54 83 22 40 01/09/19 04:00 98.1 80 24 109/74 (86) 100 01/09/19 04:00 80 01/09/19 03:55 Mechanical Ventilator 01/09/19 03:55 40 01/09/19 02:57 78 23 40 01/09/19 01:16 77 21 40 01/09/19 00:16 98.1 01/09/19 00:00 98.0 79 24 147/77 (100) 100 01/09/19 00:00 86 01/09/19 00:00 Mechanical Ventilator 01/09/19 00:00 40 01/08/19 22:35 84 22 40 01/08/19 20:44 79 25 40 01/08/19 20:00 98.1 77 28 152/81 (104) 100 01/08/19 20:00 Mechanical Ventilator 01/08/19 20:00 80 01/08/19 20:00 40 01/08/19 18:48 82 27 40 01/08/19 16:57 79 26 40 01/08/19 16:00 40 01/08/19 16:00 77 01/08/19 16:00 Mechanical Ventilator 01/08/19 16:00 98.6 78 24 147/85 (105) 100 01/08/19 15:07 78 23 40 01/08/19 12:46 80 23 40 01/08/19 12:00 Mechanical Ventilator 01/08/19 12:00 40 01/08/19 12:00 98.0 77 23 134/54 (80) 100 01/08/19 11:26 78 01/08/19 11:08 73 24 40 01/08/19 09:27 82 25 40 01/08/19 09:12 98 01/08/19 09:12 72 34 40 01/08/19 08:00 Mechanical Ventilator 01/08/19 08:00 40 01/08/19 08:00 97.6 77 26 130/75 (93) 100 01/08/19 08:00 73 Intake and Output 01/08/19 01/09/19 19:00 07:00 Intake Total 430 ml 300 ml Output Total 3000 ml Balance -2570 ml 300 ml Free Water 120 ml 120 ml Tube Feeding 250 ml 180 ml Hemodialysis 0 ml Other 60 ml Hemodialysis UF 3000 ml # Bowel Movements 6 Laboratory Tests 01/09/19 05:31: White Blood Count 5.5, Red Blood Count 3.57L, Hemoglobin 9.1L, Hematocrit 28.7L , Mean Corpuscular Volume 80, Mean Corpuscular Hemoglobin 25.4L, Mean Corpuscular Hemoglobin Concent 31.6L, Red Cell Distribution Width 16.1H, Platelet Count 171, Mean Platelet Volume 6.7, Neutrophils (%) (Auto) 71.3, Lymphocytes (%) (Auto) 17.0L, Monocytes (%) (Auto) 10.9H, Eosinophils (%) (Auto ) 0.0, Basophils (%) (Auto) 0.9, Sodium Level 133L, Potassium Level 4.0, Chloride Level 94L, Carbon Dioxide Level 28, Anion Gap 11, Blood Urea Nitrogen 61H, Creatinine 5.1H, Estimat Glomerular Filtration Rate 11.4, Glucose Level 103 , Calcium Level 9.1 Height (Feet): 5 Height (Inches): 4.00 Weight (Pounds): 220 Objective General Appearance: no apparent distress, alert Neck: normal alignment, supple Cardiovascular: normal rate, regular rhythm, regularly irregular Respiratory/Chest: lungs clear, normal breath sounds, no respiratory distress Gloria Wilson MD January 09, 2019 07:45
[2019-01-09] MEDS: Eliquis 2.5mg tablet GT SCH ×2 (09:31→18:03)
--- NOTE | 2019-01-09 14:26 | Nephrology Progress Note ---
Assessment/Plan Problem List: (1) ESRD (end stage renal disease) on dialysis (2) Foot ulcer (3) CHF (congestive heart failure) Assessment: Ej Fx 20 % (4) Pacemaker (5) Acute respiratory failure Assessment: with Co2 retention (6) G-tube site cellulitis Assessment ESRD with high K and SOB on admit Foot ulcer, likely infected High Troponin likely NSTMI Pacer , Pleural effusion s/p CABGS s/p Liver transplant Plan dialysis 01/04 and 01/06 and 01/08 next 01/11 labs before HD noted BP low- improved on midodrine per consultants, GI GT site infection, topical antibiotic Neuro note appreciated placement in process vascular esteban regarding heel ulcer per Dr Mcgill pain med change to dilaudid GT Now has tracheostomy and PEG Adjust BP meds add nitro paste TID Antibiotics by ID per cardio and ID Podiatry and Vascular surgical fu ? DC planning? Subjective ROS Limited/Unobtainable: Yes Objective Objective Last 24 Hour Vital Signs Date Time Temp Pulse Resp B/P (MAP) Pulse Ox O2 Delivery O2 Flow Rate FiO2 01/09/19 12:00 40 01/09/19 12:00 97.8 87 27 158/65 (96) 98 01/09/19 12:00 Mechanical Ventilator 01/09/19 11:47 87 01/09/19 11:00 84 33 40 01/09/19 10:59 96 01/09/19 08:55 79 24 40 01/09/19 08:00 98.8 81 26 150/69 (96) 98 01/09/19 08:00 Mechanical Ventilator 01/09/19 08:00 40 01/09/19 07:39 79 01/09/19 07:13 81 27 40 01/09/19 04:54 83 22 40 01/09/19 04:00 98.1 80 24 109/74 (86) 100 01/09/19 04:00 80 01/09/19 03:55 Mechanical Ventilator 01/09/19 03:55 40 01/09/19 02:57 78 23 40 01/09/19 01:16 77 21 40 01/09/19 00:16 98.1 01/09/19 00:00 98.0 79 24 147/77 (100) 100 01/09/19 00:00 86 01/09/19 00:00 Mechanical Ventilator 01/09/19 00:00 40 01/08/19 22:35 84 22 40 01/08/19 20:44 79 25 40 01/08/19 20:00 98.1 77 28 152/81 (104) 100 01/08/19 20:00 Mechanical Ventilator 01/08/19 20:00 80 01/08/19 20:00 40 01/08/19 18:48 82 27 40 01/08/19 16:57 79 26 40 01/08/19 16:00 40 01/08/19 16:00 77 01/08/19 16:00 Mechanical Ventilator 01/08/19 16:00 98.6 78 24 147/85 (105) 100 01/08/19 15:07 78 23 40 Intake and Output 01/08/19 01/09/19 18:59 06:59 Intake Total 420 ml 330 ml Output Total 3000 ml Balance -2580 ml 330 ml Free Water 120 ml 120 ml Tube Feeding 240 ml 210 ml Hemodialysis 0 ml Other 60 ml Hemodialysis UF 3000 ml # Bowel Movements 6 Laboratory Tests 01/09/19 05:31: White Blood Count 5.5, Red Blood Count 3.57L, Hemoglobin 9.1L, Hematocrit 28.7L , Mean Corpuscular Volume 80, Mean Corpuscular Hemoglobin 25.4L, Mean Corpuscular Hemoglobin Concent 31.6L, Red Cell Distribution Width 16.1H, Platelet Count 171, Mean Platelet Volume 6.7, Neutrophils (%) (Auto) 71.3, Lymphocytes (%) (Auto) 17.0L, Monocytes (%) (Auto) 10.9H, Eosinophils (%) (Auto ) 0.0, Basophils (%) (Auto) 0.9, Sodium Level 133L, Potassium Level 4.0, Chloride Level 94L, Carbon Dioxide Level 28, Anion Gap 11, Blood Urea Nitrogen 61H, Creatinine 5.1H, Estimat Glomerular Filtration Rate 11.4, Glucose Level 103 , Calcium Level 9.1 Height (Feet): 5 Height (Inches): 4.00 Weight (Pounds): 220 General Appearance: no apparent distress EENT: other Cardiovascular: normal rate Respiratory/Chest: decreased breath sounds Abdomen: distended Objective no other change Nakul Stevens MD January 09, 2019 14:26
--- NOTE | 2019-01-09 14:52 | Cardiac Electrophysiology PN ---
Assessment/Plan Assessment/Plan 1. Troponin leak due to renal failure. No CP or SOB. Nl EF 2. S/P CABG. On Coreg, aspirin and Lipitor 3. NSVT in setting of old IN and CABG. EF 55%. Continue Coreg 4. CHF and right pleural effusion. On hemodialysis. S/P Thoracentesis 5. S/P Right sided Medtronic DDD pacemaker with Nl Fx. 6. End-stage renal disease, on hemodialysis per Dr. Stevens S/P Fistulogram by Dr. Salmeron 7. Multilevel AOD LE's with non-healing Right foot ulcer. Had abdominal angiogram per Dr Salmeron Antibiotic per Dr. Landis. FU by Dr. Huizar S/P peripheral intervention by Dr. Salmeron 12/22/18 Right foot on Wound-Vac 8. History of liver transplant on Prograf 9. Respiratory failure, S/P tracheostomy. 10. Pleural effusion. s/p 2300 cc thoracentesis 01/01/19 11. Dysphagia, S/P PEG DW RN Subjective Subjective Ne events.Alert in NAD. In SR. Objective Last 24 Hour Vital Signs Date Time Temp Pulse Resp B/P (MAP) Pulse Ox O2 Delivery O2 Flow Rate FiO2 01/09/19 12:00 40 01/09/19 12:00 97.8 87 27 158/65 (96) 98 01/09/19 12:00 Mechanical Ventilator 01/09/19 11:47 87 01/09/19 11:00 84 33 40 01/09/19 10:59 96 01/09/19 08:55 79 24 40 01/09/19 08:00 98.8 81 26 150/69 (96) 98 01/09/19 08:00 Mechanical Ventilator 01/09/19 08:00 40 01/09/19 07:39 79 01/09/19 07:13 81 27 40 01/09/19 04:54 83 22 40 01/09/19 04:00 98.1 80 24 109/74 (86) 100 01/09/19 04:00 80 01/09/19 03:55 Mechanical Ventilator 01/09/19 03:55 40 01/09/19 02:57 78 23 40 01/09/19 01:16 77 21 40 01/09/19 00:16 98.1 01/09/19 00:00 98.0 79 24 147/77 (100) 100 01/09/19 00:00 86 01/09/19 00:00 Mechanical Ventilator 01/09/19 00:00 40 01/08/19 22:35 84 22 40 01/08/19 20:44 79 25 40 01/08/19 20:00 98.1 77 28 152/81 (104) 100 01/08/19 20:00 Mechanical Ventilator 01/08/19 20:00 80 01/08/19 20:00 40 01/08/19 18:48 82 27 40 01/08/19 16:57 79 26 40 01/08/19 16:00 40 01/08/19 16:00 77 01/08/19 16:00 Mechanical Ventilator 01/08/19 16:00 98.6 78 24 147/85 (105) 100 01/08/19 15:07 78 23 40 Intake and Output 01/08/19 01/09/19 18:59 06:59 Intake Total 420 ml 330 ml Output Total 3000 ml Balance -2580 ml 330 ml Free Water 120 ml 120 ml Tube Feeding 240 ml 210 ml Hemodialysis 0 ml Other 60 ml Hemodialysis UF 3000 ml # Bowel Movements 6 Laboratory Tests Test 01/09/19 05:31 White Blood Count 5.5 K/UL (4.8-10.8) Red Blood Count 3.57 M/UL (4.70-6.10) L Hemoglobin 9.1 G/DL (14.2-18.0) L Hematocrit 28.7 % (42.0-52.0) L Mean Corpuscular Volume 80 FL (80-99) Mean Corpuscular Hemoglobin 25.4 PG (27.0-31.0) L Mean Corpuscular Hemoglobin Concent 31.6 G/DL (32.0-36.0) L Red Cell Distribution Width 16.1 % (11.6-14.8) H Platelet Count 171 K/UL (150-450) Mean Platelet Volume 6.7 FL (6.5-10.1) Neutrophils (%) (Auto) 71.3 % (45.0-75.0) Lymphocytes (%) (Auto) 17.0 % (20.0-45.0) L Monocytes (%) (Auto) 10.9 % (1.0-10.0) H Eosinophils (%) (Auto) 0.0 % (0.0-3.0) Basophils (%) (Auto) 0.9 % (0.0-2.0) Sodium Level 133 MMOL/L (136-145) L Potassium Level 4.0 MMOL/L (3.5-5.1) Chloride Level 94 MMOL/L (98-107) L Carbon Dioxide Level 28 MMOL/L (21-32) Anion Gap 11 mmol/L (5-15) Blood Urea Nitrogen 61 mg/dL (7-18) H Creatinine 5.1 MG/DL (0.55-1.30) H Estimat Glomerular Filtration Rate 11.4 mL/min (>60) Glucose Level 103 MG/DL (74-106) Calcium Level 9.1 MG/DL (8.5-10.1) Microbiology Date/Time Source Procedure Growth Status 01/07/19 16:15 Stool Clostridium difficile Toxin Assay - Final Complete Objective HEAD AND NECK: No JVD. Tracheostomy intact LUNGS: Clear CARDIOVASCULAR: Irregular S1 and S2 with no gallop. Sternotomy is intact Pacemaker in the right subclavian ABDOMEN: Soft. PEG in place EXTREMITIES: 1+ pitting edema. Right heel in dressing and connected to WoundVac Shivam Sharpe MD January 09, 2019 14:52
[2019-01-09] MEDS: HYDROcodone/Acetamin 5/325 tab ORAL PRN (20:10)
--- NOTE | 2019-01-09 20:52 | Infectious Diseases Prog Note ---
Assessment/Plan Problems: (1) Diarrhea Assessment & Plan: rule out infectious etiology , stool for C diff toxin is negative , stool culture is pending , avoid laxatives, monitor clinically , encourage hydration (2) Foot ulcer Assessment & Plan: with MRSA grew out of it in the past, S/P vancomycin treatment with HD for two weeks, had vascular eval with revascularization to the right leg , S/P ulcer resection by patent leather sorter . deep ulcer culture grew MRSA and E.coli with diphtheroids , possible colonization , with no evidence of active infection as per discussion with podiatry , no need to be started on antibiotics for now , will continue to monitor clinically and make recommendations as necessary . bone scan ruled out osteomyelitis of the heel before, couldn't do an MRI since on the vent . continue local wound care as per patent leather sorter . (3) Thrush, oral Assessment & Plan: continue local nystatin as needed , S/P micafungin for three weeks empirically (4) HCV antibody positive Assessment & Plan: no evidence of active infection, with undetectable viral load , suspect due to previous infection , cleared, S/P liver transplant . (5) DM (diabetes mellitus) Assessment & Plan: recommend tight glycemic control to keep blood glucose between 100-140 (6) CHF (congestive heart failure) Assessment & Plan: on HD , renal is following, monitor daily weight (7) Severe tongue swelling Assessment & Plan: improving , s/p tracheostomy to protect his airway since respiratory status worsened . now improving, pulmonary is following (8) Pleural effusion Assessment & Plan: recurrent on the right, with lung collapse , S/P thoracentesis X 3 now with removal of 2.3 liters of clear fluids on 12/31/18 . await fluids culture and gram stain, with PH and Glucose level . PREVIOUS culture were negative with negative cytology. pulmonary is following (9) Ascites Assessment & Plan: S/P paracentesis with removal of 4.1 liters of fluids, culture so far is negative Assessment/Plan will continue to monitor patient on daily basis and make recommendations as necessary since he is high risk for recurrent infection Subjective Constitutional: Reports: no symptoms HEENT: Reports: no symptoms Respiratory: Reports: no symptoms Breasts: Reports: no symptoms Cardiovascular: Reports: no symptoms Gastrointestinal/Abdominal: Reports: no symptoms Genitourinary: Reports: no symptoms Neurologic: Reports: no symptoms Psychiatric: Reports: no symptoms Skin: Reports: no symptoms Endocrine: Reports: no symptoms Hematologic: Reports: no symptoms Musculoskeletal: Reports: no symptoms Allergies: Coded Allergies: CEPHALEXIN (Unverified Allergy, Unknown, 02/24/14) SULFAMETHOXAZOLE (Unverified Allergy, Unknown, 02/24/14) TRIMETHOPRIM (Unverified Allergy, Unknown, 02/24/14) Subjective he was comfortable, lying in bed, denied any fever or chills, no significant secretions, no SOB . has heel pain at the surgery site with wound VAC in place , but no draining coming out . developed diarrhea last night , nonbloody Objective Vital Signs Last 24 Hour Vital Signs Date Time Temp Pulse Resp B/P (MAP) Pulse Ox O2 Delivery O2 Flow Rate FiO2 01/09/19 20:04 78 22 40 01/09/19 20:00 40 01/09/19 20:00 97.7 73 18 147/75 (99) 100 01/09/19 19:56 80 01/09/19 16:58 78 23 40 01/09/19 16:00 40 01/09/19 16:00 Mechanical Ventilator 01/09/19 16:00 96.4 86 25 165/97 (119) 99 01/09/19 15:22 86 01/09/19 15:22 81 36 40 01/09/19 12:00 40 01/09/19 12:00 97.8 87 27 158/65 (96) 98 01/09/19 12:00 Mechanical Ventilator 01/09/19 11:47 87 01/09/19 11:00 84 33 40 01/09/19 10:59 96 01/09/19 08:55 79 24 40 01/09/19 08:00 98.8 81 26 150/69 (96) 98 01/09/19 08:00 Mechanical Ventilator 01/09/19 08:00 40 01/09/19 07:39 79 01/09/19 07:13 81 27 40 01/09/19 04:54 83 22 40 01/09/19 04:00 98.1 80 24 109/74 (86) 100 01/09/19 04:00 80 01/09/19 03:55 Mechanical Ventilator 01/09/19 03:55 40 01/09/19 02:57 78 23 40 01/09/19 01:16 77 21 40 01/09/19 00:16 98.1 01/09/19 00:00 98.0 79 24 147/77 (100) 100 01/09/19 00:00 86 01/09/19 00:00 Mechanical Ventilator 01/09/19 00:00 40 01/08/19 22:35 84 22 40 Height (Feet): 5 Height (Inches): 4.00 Weight (Pounds): 220 General Appearance: WD/WN, no acute distress HEENT: normocephalic, atraumatic, anicteric, mucous membranes moist, PERRL Respiratory/Chest: chest wall non-tender, lungs clear, normal breath sounds, no accessory muscle use Cardiovascular: normal peripheral pulses, normal rate, regular rhythm, no gallop/murmur, no JVD Abdomen: normal bowel sounds, soft, non tender, no organomegaly, non distended , no mass, no scars Genitourinary: normal external genitalia Extremities: no cyanosis, no clubbing Skin: no rash, no lesions 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: 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 normal, alert, oriented x 3, responsive Lymphatic: no neck adenopathy, no groin adenopathy Microbiology Date/Time Source Procedure Growth Status 01/07/19 16:15 Stool Clostridium difficile Toxin Assay - Final Complete Laboratory Tests Test 01/09/19 05:31 White Blood Count 5.5 K/UL (4.8-10.8) Red Blood Count 3.57 M/UL (4.70-6.10) L Hemoglobin 9.1 G/DL (14.2-18.0) L Hematocrit 28.7 % (42.0-52.0) L Mean Corpuscular Volume 80 FL (80-99) Mean Corpuscular Hemoglobin 25.4 PG (27.0-31.0) L Mean Corpuscular Hemoglobin Concent 31.6 G/DL (32.0-36.0) L Red Cell Distribution Width 16.1 % (11.6-14.8) H Platelet Count 171 K/UL (150-450) Mean Platelet Volume 6.7 FL (6.5-10.1) Neutrophils (%) (Auto) 71.3 % (45.0-75.0) Lymphocytes (%) (Auto) 17.0 % (20.0-45.0) L Monocytes (%) (Auto) 10.9 % (1.0-10.0) H Eosinophils (%) (Auto) 0.0 % (0.0-3.0) Basophils (%) (Auto) 0.9 % (0.0-2.0) Sodium Level 133 MMOL/L (136-145) L Potassium Level 4.0 MMOL/L (3.5-5.1) Chloride Level 94 MMOL/L (98-107) L Carbon Dioxide Level 28 MMOL/L (21-32) Anion Gap 11 mmol/L (5-15) Blood Urea Nitrogen 61 mg/dL (7-18) H Creatinine 5.1 MG/DL (0.55-1.30) H Estimat Glomerular Filtration Rate 11.4 mL/min (>60) Glucose Level 103 MG/DL (74-106) Calcium Level 9.1 MG/DL (8.5-10.1) Ferritin 526 NG/ML (8-388) H Thyroid Stimulating Hormone (TSH) 7.596 uiU/mL (0.358-3.740) Current Medications Medications (Trade) Dose Ordered Sig/Aleks Route PRN Reason Start Time Stop Time Status Last Admin Dose Admin Acetaminophen (Tylenol) 650 mg Q6H PRN GT Mild Pain/Temp > 100.5 12/21/18 16:00 01/20/19 15:59 01/08/19 17:28 Acetaminophen/ Hydrocodone Bitart (Doerun 5/325) 1 tab Q4H PRN ORAL Moderate Pain (Pain Scale 4-6) 01/05/19 14:30 01/12/19 14:29 01/09/19 20:10 Apixaban (Eliquis) 2.5 mg BID GT 01/01/19 21:00 01/31/19 20:59 01/09/19 18:03 Clotrimazole (Lotrimin) 1 applic DAILY TOPIC 01/08/19 18:00 02/07/19 17:59 01/09/19 09:31 Collagenase (Santyl) 1 applic DAILY TOPIC 12/29/18 09:00 01/28/19 08:59 01/09/19 09:32 Dextrose (Dextrose 50%) 25 ml Q30M PRN IV Hypoglycemia 12/31/18 23:00 01/30/19 22:59 Dextrose (Dextrose 50%) 50 ml Q30M PRN IV Hypoglycemia 12/31/18 23:00 01/30/19 22:59 Epoetin Vini (Epoetin Vini(ESRD on dialysis)) 10,000 unit FRI-FRI-FRI SUBQ 01/06/19 21:00 02/05/19 20:59 01/08/19 20:38 Escitalopram Oxalate (Lexapro) 20 mg DAILY GT 01/05/19 09:00 02/04/19 08:59 01/09/19 09:31 Hydralazine HCl (Apresoline) 25 mg Q4H PRN GT bp over 160 syst 01/06/19 15:00 02/05/19 14:59 Insulin Aspart (NovoLOG) EVERY 6 HOURS SUBQ 01/01/19 00:00 01/31/19 00:00 01/09/19 18:05 Loperamide HCl (Imodium) 2 mg Q6H PRN GT Diarrhea 01/07/19 11:00 02/06/19 10:59 01/09/19 20:09 Metoclopramide HCl (Reglan) 5 mg Q6H PRN IVP Nausea & Vomiting 12/30/18 17:30 01/29/19 17:29 01/05/19 20:45 Mirtazapine (Remeron) 15 mg BEDTIME GT 12/21/18 21:00 01/20/19 20:59 01/09/19 20:09 Tacrolimus (Prograf) 2 mg MoWeFr@0000,1200 ORAL 12/28/18 00:00 01/27/19 00:00 01/08/19 12:36 Tacrolimus (Prograf) 2 mg SuTuThSa@0900,2100 ORAL 12/26/18 21:00 01/25/19 20:59 01/09/19 20:08 Francois Landis M.D. January 09, 2019 20:52
--- NOTE | 2019-01-10 02:30 | Progress Note ---
DATE: 01/09/2019 SUBJECTIVE: The patient's mental condition is unchanged since previous encounter. Continues to present with depressed mood, hopeless, helpless. No suicidal or homicidal ideation. MENTAL STATUS EXAMINATION: The patient is alert and oriented x3. Mood is depressed. Affect is constricted, congruent with mood. Thought process is linear. Thought content, no suicidal or homicidal ideation. ASSESSMENT: 1. Anxiety disorder. 2. Major depressive disorder. PLAN: The patient will be continued with current medications. Provide the patient with reality orientation and supportive therapy. Jeffrey Lala M.D. DR: GLORIA JOB#: [id number] CC:
[2019-01-10 04:00] VITALS: BP 110/71
[2019-01-10] MEDS: Acetaminophen 650mg/20.3ml GT PRN (05:10)
[2019-01-10] MEDS: NovoLOG Insulin Flexpen SUBQ SCH ×4 (05:14→17:48)
[2019-01-10 08:00] VITALS: BP 138/71
[2019-01-10] MEDS: Eliquis 2.5mg tablet GT SCH ×2 (09:27→17:47)
[2019-01-10] MEDS: HYDROcodone/Acetamin 5/325 tab ORAL PRN ×3 (09:29→23:26)
[2019-01-10 12:00] VITALS: BP 153/69
--- NOTE | 2019-01-10 13:04 | Cardiac Electrophysiology PN ---
Assessment/Plan Assessment/Plan 1. Troponin leak due to renal failure. No CP or SOB. Nl EF 2. S/P CABG. No CP on Coreg, aspirin and Lipitor 3. NSVT in setting of old [place] and CABG. EF 55%. Continue Coreg 4. CHF and right pleural effusion. On hemodialysis. S/P Thoracentesis 5. S/P Right sided Medtronic DDD pacemaker with Nl Fx. 6. End-stage renal disease, on hemodialysis per Dr. Stevens 7. Multilevel AOD LE's with non-healing Right foot ulcer. Had abdominal angiogram per Dr Salmeron Antibiotic per Dr. Landis. FU by Dr. Huizar S/P peripheral intervention by Dr. Salmeron 12/22/18 Right foot on Wound-Vac 8. History of liver transplant on Prograf 9. Respiratory failure, S/P tracheostomy. 10. Pleural effusion. s/p 2300 cc thoracentesis 01/01/19 11. Dysphagia, S/P PEG DW RN Subjective Subjective Ne events.Alert in NAD. Awaiting HD tomorrow. Dr Cool at bedside Objective Last 24 Hour Vital Signs Date Time Temp Pulse Resp B/P (MAP) Pulse Ox O2 Delivery O2 Flow Rate FiO2 01/10/19 12:00 40 01/10/19 11:29 79 25 40 01/10/19 08:45 82 28 40 01/10/19 08:00 40 01/10/19 08:00 Mechanical Ventilator 01/10/19 08:00 72 01/10/19 08:00 98.0 74 27 138/71 (93) 99 01/10/19 06:59 76 26 40 01/10/19 05:40 97.5 01/10/19 05:06 80 24 40 01/10/19 04:00 80 01/10/19 04:00 40 01/10/19 04:00 97.5 83 22 110/71 (84) 100 01/10/19 04:00 Mechanical Ventilator 01/10/19 03:21 78 20 40 01/10/19 01:28 71 26 40 01/10/19 00:00 77 01/10/19 00:00 Mechanical Ventilator 01/09/19 23:25 81 24 40 01/09/19 23:22 97.0 86 22 91/74 (80) 100 01/09/19 21:02 84 24 40 01/09/19 20:40 96.4 01/09/19 20:04 78 22 40 01/09/19 20:00 40 01/09/19 20:00 Mechanical Ventilator 01/09/19 20:00 97.7 73 18 147/75 (99) 100 01/09/19 19:56 80 01/09/19 16:58 78 23 40 01/09/19 16:00 40 01/09/19 16:00 Mechanical Ventilator 01/09/19 16:00 96.4 86 25 165/97 (119) 99 01/09/19 15:22 86 01/09/19 15:22 81 36 40 Intake and Output 01/09/19 01/10/19 18:59 06:59 Intake Total 460 ml 570 ml Balance 460 ml 570 ml Free Water 100 ml 180 ml Tube Feeding 360 ml 390 ml # Bowel Movements 6 2 Microbiology Date/Time Source Procedure Growth Status 01/07/19 16:15 Stool Stool Culture - Preliminary NO SALMONELLA,SHIGELLA,OR CAMPYLOBACT... Resulted 01/07/19 16:15 Stool Clostridium difficile Toxin Assay - Final Complete Objective HEAD AND NECK: No JVD. Tracheostomy intact LUNGS: Clear CARDIOVASCULAR: Irregular S1 and S2 with no gallop. Sternotomy is intact Pacemaker in the right subclavian ABDOMEN: Soft. PEG in place EXTREMITIES: 1+ pitting edema. Right heel in dressing and connected to WoundVac Shivam Sharpe MD January 10, 2019 13:04
--- NOTE | 2019-01-10 13:08 | Neurology Progress Note ---
Interim History Interim History Interim History Mr. Restrepo feels better since I saw him last. He tells me that his mood has improved. He is in better spirits. The right heel is less painful. The right upper extremity is less swollen and less painful. He has been able to sleep better. He is breathing well but still artificially ventilated. He feels that his strength is stable. The mind has been clearer. He is eager to eat. He denies any new neurological symptoms. Review of Systems Neuro Review of Systems Benign. Objective Physical Exam Last Vital Signs Date Time Temp Pulse Resp B/P (MAP) Pulse Ox O2 Delivery O2 Flow Rate FiO2 01/10/19 12:00 40 01/10/19 11:29 79 25 01/10/19 08:00 Mechanical Ventilator 01/10/19 08:00 98.0 138/71 (93) 99 01/02/19 16:00 12.0 Neurologic Exam Objective PHYSICAL EXAMINATION: GENERAL: He is a well-developed and well-nourished, pleasant gentleman, lying in bed, connected to a ventilator via a tracheostomy. HEAD: Normocephalic and atraumatic. EENT: Examination benign. NECK: No neck rigidity was observed. He did have a tracheostomy. NEUROLOGICAL EXAMINATION: MENTAL STATUS EXAMINATION: He was awake and alert. He was well oriented, except for the exact date. He was able to recall 3/3 words immediately and was able to remember them in 1 and 3 minutes. He was able to remember presidents Trump and Obama. SPEECH: Could not be tested, but he was able to mouth words relatively well. LANGUAGE: He was able to comprehend and express himself relatively well. CRANIAL NERVES EXAMINATION: II: The visual mckeon were intact to confrontation testing. III, IV & : The external ocular movements were full and the pupils 3 mm in diameter, equal, round, regular, and reactive sluggishly to light. V: He had normal facial sensations, and the temporales, masseters, and pterygoids functioned normally. VII: He had normal facial expressions and no facial asymmetry. VIII: Hearing was decreased bilaterally with worse hearing on the left side compared to the right. IX: The palate moved symmetrically on phonation. X: Could not be tested. XI: The sternocleidomastoids and trapezii functioned normally. XII: The tongue was in the midline without any fasciculations or atrophy. MOTOR SYSTEM: The tone was normal in all four extremities. Examination of muscle mass revealed generalized muscle wasting. Examination of power revealed G 5/5 power except for G 4+/5 power in the iliopsoas muscles bilaterally, and G 4/5 in the right ankle and toes. Power in the right upper extremity was limited by pain. Power in the right foot was also limited by pain. SENSORY EXAMINATION: He had intact sensations to light touch. Other sensory modalities could not be tested adequately. REFLEXES: 1+ and bilaterally symmetrical at the biceps, triceps, brachioradialis , and knees, 0 at both ankles. The plantar responses were flexor bilaterally. COORDINATION: He performed well on eosxif-[id number] testing. STANCE & GAIT: Were deferred. Impression/Recommendations Diagnostic Impression 1. Mr. Gregg Restrepo is a 68-year-old, right-handed, gentleman with past history of multiple medical problems including hypertension, diabetes mellitus, end-stage renal disease for which he is hemodialysis dependent, prior episodes of sepsis, and prior episodes of encephalopathy, who was admitted to [facility] on October 31, 2018. Following that, he has had a stormy hospital course including pneumonia and sepsis, right foot infection, respiratory failure for which he has needed tracheostomy and in addition he has exhibited an alteration in his mental state with some waxing and waning of his mental state. 2. He feels better since I saw him last. He tells me that his mood has improved. He is in better spirits. The right heel is less painful. The right upper extremity is less swollen and less painful. He has been able to sleep better. He is breathing well but still artificially ventilated. He feels that his strength is stable. The mind has been clearer. He is eager to eat. He denies any new neurological symptoms. 3. On neurological examination, at this time, he is well oriented except for the exact date, his recent memory is normal. He has minimally impaired higher cognitive function. He is able to comprehend and express himself well. He does have mild G 4+/5 weakness in the iliopsoas muscles bilaterally. Power in the right upper extremity was limited by pain. Power in the right foot was also limited by pain but the weakness in the right ankle and toes is better than yesterday. He had globally diminished deep tendon reflexes with loss of ankle jerks, but no definite focal or lateralizing neurological findings. 4. His latest laboratory data on my initial evaluation revealed that he was anemic with a hemoglobin of 10.8 G. His last blood gas performed on 11/14/2018 revealed that he had a pCO2 elevated at 56.4 with a normal pO2 of 88.3 and normal pH of 7.37. His latest chemistry panel revealed that he was mildly hyponatremic with a sodium of 130, and had a chloride of 90. The BUN was elevated at 75, creatinine elevated at 7.4, glucose elevated at 156, Hemoglobin A1c elevated at 6.9%, Alkaline phosphatase elevated at 131, and ProBNP greater than 35,000. His last B12 level on 11/07/2018 was 723. His last folate on was 18.6. His last TSH on 12/06/2018 was 4.82, which is minimally elevated. 5. The CT scan of the brain performed on 11/10/2018 was benign for acute intracranial pathology. 6. The EEG done on 12/08/18 revealed left temporal dysfunction. 7. The patient's history and neurological examination are most consistent with mild multifactorial encephalopathy, which apparently waxes and wanes, but no definite focal neurological dysfunction. His encephalopathy is stable. 8. He tells me that he had a brain bleed many years ago. I did review his imaging done at [facility] a few years ago and he had closed head injuries with subarachnoid and subdural blood in the past. 9. His mood has improved. 10. He is eager to eat again. Recommendations 1. Continue present management. 2. Continue to correct the patient's toxic metabolic imbalances. 3. Mobilize with PT/OT. 4. Consider getting ENT evaluation for worsening hearing. 5. Consider getting swallowing evaluation so that he can be fed for enjoyment. 6. Observe. Pantera Cool M.D., M.S.P.H. Pantera Cool MD January 10, 2019 13:08
--- NOTE | 2019-01-10 14:38 | Nephrology Progress Note ---
Assessment/Plan Problem List: (1) ESRD (end stage renal disease) on dialysis (2) Foot ulcer (3) CHF (congestive heart failure) Assessment: Ej Fx 20 % (4) Pacemaker (5) Acute respiratory failure Assessment: with Co2 retention (6) G-tube site cellulitis Assessment ESRD with high K and SOB on admit Foot ulcer, likely infected High Troponin likely NSTMI Pacer , Pleural effusion s/p CABGS s/p Liver transplant Plan dialysis 01/04 and 01/06 and 01/08 next 01/11 labs before HD noted BP low- improved on midodrine per consultants, GI GT site infection, topical antibiotic Neuro note appreciated placement in process vascular esteban regarding heel ulcer per Dr Mcgill pain med change to dilaudid GT Now has tracheostomy and PEG Adjust BP meds add nitro paste TID Antibiotics by ID per cardio and ID Podiatry and Vascular surgical fu ? DC planning? Subjective ROS Limited/Unobtainable: No Constitutional: Reports: malaise Objective Objective Last 24 Hour Vital Signs Date Time Temp Pulse Resp B/P (MAP) Pulse Ox O2 Delivery O2 Flow Rate FiO2 01/10/19 13:18 98 01/10/19 13:06 77 26 40 01/10/19 12:00 40 01/10/19 11:29 79 25 40 01/10/19 08:45 82 28 40 01/10/19 08:00 40 01/10/19 08:00 Mechanical Ventilator 01/10/19 08:00 72 01/10/19 08:00 98.0 74 27 138/71 (93) 99 01/10/19 06:59 76 26 40 01/10/19 05:40 97.5 01/10/19 05:06 80 24 40 01/10/19 04:00 80 01/10/19 04:00 40 01/10/19 04:00 97.5 83 22 110/71 (84) 100 01/10/19 04:00 Mechanical Ventilator 01/10/19 03:21 78 20 40 01/10/19 01:28 71 26 40 01/10/19 00:00 77 01/10/19 00:00 Mechanical Ventilator 01/09/19 23:25 81 24 40 01/09/19 23:22 97.0 86 22 91/74 (80) 100 01/09/19 21:02 84 24 40 01/09/19 20:40 96.4 01/09/19 20:04 78 22 40 01/09/19 20:00 40 01/09/19 20:00 Mechanical Ventilator 01/09/19 20:00 97.7 73 18 147/75 (99) 100 01/09/19 19:56 80 01/09/19 16:58 78 23 40 01/09/19 16:00 40 01/09/19 16:00 Mechanical Ventilator 01/09/19 16:00 96.4 86 25 165/97 (119) 99 01/09/19 15:22 86 01/09/19 15:22 81 36 40 Intake and Output 01/09/19 01/10/19 18:59 06:59 Intake Total 460 ml 570 ml Balance 460 ml 570 ml Free Water 100 ml 180 ml Tube Feeding 360 ml 390 ml # Bowel Movements 6 2 Height (Feet): 5 Height (Inches): 4.00 Weight (Pounds): 222 General Appearance: no apparent distress EENT: other - trach Respiratory/Chest: decreased breath sounds Abdomen: other - PEG Objective no other change Nakul Stevens MD January 10, 2019 14:38
[2019-01-10 16:00] VITALS: BP 155/87
--- NOTE | 2019-01-10 16:57 | Hematology/Onc Progress Note ---
Assessment/Plan Assessment/Plan Assessment and Recs: # Acute non-occlusive dvt, right extremity ultrasound (acute non-occlusive DVT in internal jugular) --> currently is on eliquis 2.5mg po bid --> do not recommend a SVC filter --> given prior bleeding risk, hold off on heparin gtt --> vasc surgeon is aware, seek recs # Anemia of chronic disease due to underlying chronic medical issues --> ferritin is 633, tibc is low --> No evidence of hemolysis is noted, peripheral smear has been reviewed. --> Epogen can be consider if hgb downtrends --> Medications have been reviewed --> evaluate with Gi team prn --> transfuse if hgb is < 7 (will trend CBC daily) --> hgb trend 11.2-->10.9-->10.8-->10.7-->10.2-->9.7-->9.7-->8.5-->9-->9.2-->8.4 -->7.7-->8.8-->9.1 --> s/p transfusion on 01/06 # Failure to thrive is likely related to poor overall status, poor functional status --> with multiple decub ulcerations that are noted, seen by id/surgery --> s/p trach as well --> cea is wnl # Coagulopathy likely secondary to decreased Vitk dependent cofactors (high INR , PT) --> monitor closely for any evidence of bleeding. Currently is on eliquis --> VIT K on prn basis sq can be administered --> recently has improved inr 1.2-->1.1-->1.2 # Acute respiratory failure is now s/p trach to vent --> as per surgery recs # Ground glass opacities present on imaging of lung --> with pleural effusions, s/p drainage at this time --> no evidence for malignancy is noted --> as per pulm/id # Pleural effusion --> s/p thoracentesis, s/p paracentesis 12/31 --> no evidence of malignancy # Hyperkalemia --> kayxelate on prn basis per renal # Renal failure --> per renal recs, appreciated --> getting hd as per schedule # Altered level of consciousness --> currently as per baseline --> neuro eval prn # PAD off heparin gtt and now on eliquis --> per vasc and cards --> 12/22 s/p right leg angiogram with intervention --> on eliquis, continue # Gt tube cellulitis, on topical abx as per id around site The timing of this note does not necessarily reflect the time of the patient was seen. Greatly appreciate consultation! Subjective Constitutional: Denies: no symptoms, chills, fever, malaise, weakness, other HEENT: Denies: no symptoms, eye pain, blurred vision, tearing, double vision, ear pain, ear discharge, nose pain, nose congestion, throat pain, throat swelling, mouth pain, mouth swelling, other Cardiovascular: Denies: no symptoms, chest pain, edema, irregular heart rate, lightheadedness, palpitations, syncope, other Respiratory: Denies: no symptoms, cough, shortness of breath, SOB with excertion, SOB at rest, sputum, wheezing, other Gastrointestinal/Abdominal: Denies: no symptoms, abdomen distended, abdominal pain, black stools, tarry stools, blood in stool, constipated, diarrhea, difficulty swallowing, nausea, poor appetite, poor fluid intake, rectal bleeding , vomiting, other Genitourinary: Denies: no symptoms, burning, discharge, frequency, flank pain, hematuria, incontinence, pain, urgency, other 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: Denies: no symptoms, anxiety, depressed, emotional problems, headache, numbness, paresthesia, pre-existing deficit, seizure, tingling, tremors, weakness, other Hematologic/Lymphatic: Denies: no symptoms, anemia, easy bleeding, easy bruising, adenopathy, other Allergies: Coded Allergies: CEPHALEXIN (Unverified Allergy, Unknown, 02/24/14) SULFAMETHOXAZOLE (Unverified Allergy, Unknown, 02/24/14) TRIMETHOPRIM (Unverified Allergy, Unknown, 02/24/14) Subjective 11/30: comfortable, on abx, no complaints, on t-piece 12/01: to have hd done potentially tomorrow, is more alert/awake 12/02: no major bleeding, hgb remains approx 11, no changes 12/03: no events, breathing mildly better, hgb is improved 12/04: on vent/trach, no major changes, sr ekg 12/10: small amount of secretions, on trach/vent, no issues otherwise 12/11: no major issues, no complaints, labs reviewed, no sig changes 12/13: no events to report, no fevers or chills, awaiting placement 12/14: no changes, no major events to report, no fevers or chills 12/15: pending placement, getting gt feeds and hd as per renal 12/16: labs have been reviewed, cbc noted, no changes 12/17: no events, no fevers, no cp, hgb remains stable 12/18: restarted on heparin gtt, seen by pulm, cards 12/20: continues to be on heparin gtt, no bleeding reported, no f/c 12/21: hd for today, no fevers or chils, off hep gtt on eliquis 12/22: to get hd tomorrow, today is s/p right leg angiogram with intervention 12/23: hgb remins stable, no fevers or chills reported 12/24: no events, no bleeding, vitals reviewed, cbc stable 12/25: no events, no bleeding, on vent, hgb 9 12/27: no changes, no f/c, no night swearts, seen with other providers 12/28: right extremity ultrasound (acute non-occlusive DVT in internal jugular, on eliquis 12/29: no events, no night sweats, seen by gi, no bleeding 12/30: cbc has been reviewed, no f/c, no night sweats reported 12/31: no events, eliquis is on hold cbc has been reviewed, bp elevated 01/01: no fevers or chills, cbc reviewed, hgb 9.3, getting HD 01/02: no events noted, getting norco for pain, hgb stable 01/04: not events to report, no bleeding, refusing ivl at this time, cbc reviewed 01/05: no fevers or chills noted, s/p trach/vent, no f/c, no chills noted 01/06: no events, to get 1 unit prbc today, renal seen, on abx 01/07: hd for tomorrow, seen by renal, no events, cbc reviewed 01/08: getting Hd today, seen by renal, no major events, in sr 01/10: no events to report, to get hd tomorrow, hgb stable Objective Objective Current Medications Medications (Trade) Dose Ordered Sig/Aleks Route PRN Reason Start Time Stop Time Status Last Admin Dose Admin Acetaminophen (Tylenol) 650 mg Q6H PRN GT Mild Pain/Temp > 100.5 12/21/18 16:00 01/20/19 15:59 01/10/19 05:10 Acetaminophen/ Hydrocodone Bitart ([place] 5/325) 1 tab Q4H PRN ORAL Moderate Pain (Pain Scale 4-6) 01/05/19 14:30 01/12/19 14:29 01/10/19 09:29 Apixaban (Eliquis) 2.5 mg BID GT 01/01/19 21:00 01/31/19 20:59 01/10/19 09:27 Clotrimazole (Lotrimin) 1 applic DAILY TOPIC 01/08/19 18:00 02/07/19 17:59 01/10/19 09:29 Collagenase (Santyl) 1 applic DAILY TOPIC 12/29/18 09:00 01/28/19 08:59 01/10/19 09:30 Dextrose (Dextrose 50%) 25 ml Q30M PRN IV Hypoglycemia 12/31/18 23:00 01/30/19 22:59 Dextrose (Dextrose 50%) 50 ml Q30M PRN IV Hypoglycemia 12/31/18 23:00 01/30/19 22:59 Epoetin Vini (Epoetin Vini(ESRD on dialysis)) 10,000 unit FRI-FRI-FRI SUBQ 01/06/19 21:00 02/05/19 20:59 01/08/19 20:38 Escitalopram Oxalate (Lexapro) 20 mg DAILY GT 01/05/19 09:00 02/04/19 08:59 01/10/19 09:27 Hydralazine HCl (Apresoline) 25 mg Q4H PRN GT bp over 160 syst 01/06/19 15:00 02/05/19 14:59 Insulin Aspart (NovoLOG) EVERY 6 HOURS SUBQ 01/01/19 00:00 01/31/19 00:00 01/10/19 12:02 Loperamide HCl (Imodium) 2 mg Q6H PRN GT Diarrhea 01/07/19 11:00 02/06/19 10:59 01/09/19 20:09 Metoclopramide HCl (Reglan) 5 mg Q6H PRN IVP Nausea & Vomiting 12/30/18 17:30 01/29/19 17:29 01/05/19 20:45 Mirtazapine (Remeron) 15 mg BEDTIME GT 12/21/18 21:00 01/20/19 20:59 01/09/19 20:09 Tacrolimus (Prograf) 2 mg MoWeFr@0000,1200 ORAL 12/28/18 00:00 01/27/19 00:00 01/08/19 12:36 Tacrolimus (Prograf) 2 mg SuTuThSa@0900,2100 ORAL 12/26/18 21:00 01/25/19 20:59 01/10/19 09:34 Last 24 Hour Vital Signs Date Time Temp Pulse Resp B/P (MAP) Pulse Ox O2 Delivery O2 Flow Rate FiO2 01/10/19 16:42 75 27 40 01/10/19 16:00 40 01/10/19 16:00 Mechanical Ventilator 01/10/19 16:00 74 01/10/19 15:06 81 26 40 01/10/19 13:18 98 01/10/19 13:06 77 26 40 01/10/19 12:00 Mechanical Ventilator 01/10/19 12:00 98.6 73 28 153/69 (97) 99 01/10/19 12:00 74 01/10/19 12:00 40 01/10/19 11:29 79 25 40 01/10/19 08:45 82 28 40 01/10/19 08:00 40 01/10/19 08:00 Mechanical Ventilator 01/10/19 08:00 72 01/10/19 08:00 98.0 74 27 138/71 (93) 99 01/10/19 06:59 76 26 40 01/10/19 05:40 97.5 01/10/19 05:06 80 24 40 01/10/19 04:00 80 01/10/19 04:00 40 01/10/19 04:00 97.5 83 22 110/71 (84) 100 01/10/19 04:00 Mechanical Ventilator 01/10/19 03:21 78 20 40 01/10/19 01:28 71 26 40 01/10/19 00:00 77 01/10/19 00:00 Mechanical Ventilator 01/09/19 23:25 81 24 40 01/09/19 23:22 97.0 86 22 91/74 (80) 100 01/09/19 21:02 84 24 40 01/09/19 20:40 96.4 01/09/19 20:04 78 22 40 01/09/19 20:00 40 01/09/19 20:00 Mechanical Ventilator 01/09/19 20:00 97.7 73 18 147/75 (99) 100 01/09/19 19:56 80 01/09/19 16:58 78 23 40 01/09/19 16:00 40 01/09/19 16:00 Mechanical Ventilator 01/09/19 16:00 96.4 86 25 165/97 (119) 99 01/09/19 15:22 86 01/09/19 15:22 81 36 40 01/09/19 12:00 40 01/09/19 12:00 97.8 87 27 158/65 (96) 98 01/09/19 12:00 Mechanical Ventilator 01/09/19 11:47 87 01/09/19 11:00 84 33 40 01/09/19 10:59 96 01/09/19 08:55 79 24 40 01/09/19 08:00 98.8 81 26 150/69 (96) 98 01/09/19 08:00 Mechanical Ventilator 01/09/19 08:00 40 01/09/19 07:39 79 01/09/19 07:13 81 27 40 01/09/19 04:54 83 22 40 01/09/19 04:00 98.1 80 24 109/74 (86) 100 01/09/19 04:00 80 01/09/19 03:55 Mechanical Ventilator 01/09/19 03:55 40 01/09/19 02:57 78 23 40 01/09/19 01:16 77 21 40 01/09/19 00:00 98.0 79 24 147/77 (100) 100 01/09/19 00:00 86 01/09/19 00:00 Mechanical Ventilator 01/09/19 00:00 40 01/08/19 22:35 84 22 40 01/08/19 20:44 79 25 40 5/24/19 20:00 98.1 77 28 152/81 (104) 100 01/08/19 20:00 Mechanical Ventilator 01/08/19 20:00 80 01/08/19 20:00 40 01/08/19 18:48 82 27 40 01/08/19 16:57 79 26 40 Intake and Output 01/09/19 01/10/19 18:59 06:59 Intake Total 460 ml 570 ml Balance 460 ml 570 ml Free Water 100 ml 180 ml Tube Feeding 360 ml 390 ml # Bowel Movements 6 2 Labs Test 01/08/19 04:43 01/09/19 05:31 White Blood Count 6.2 K/UL (4.8-10.8) 5.5 K/UL (4.8-10.8) Red Blood Count 3.48 M/UL (4.70-6.10) 3.57 M/UL (4.70-6.10) Hemoglobin 8.8 G/DL (14.2-18.0) 9.1 G/DL (14.2-18.0) Hematocrit 27.7 % (42.0-52.0) 28.7 % (42.0-52.0) Mean Corpuscular Volume 80 FL (80-99) 80 FL (80-99) Mean Corpuscular Hemoglobin 25.4 PG (27.0-31.0) 25.4 PG (27.0-31.0) Mean Corpuscular Hemoglobin Concent 31.9 G/DL (32.0-36.0) 31.6 G/DL (32.0-36.0) Red Cell Distribution Width 16.0 % (11.6-14.8) 16.1 % (11.6-14.8) Platelet Count 191 K/UL (150-450) 171 K/UL (150-450) Mean Platelet Volume 6.5 FL (6.5-10.1) 6.7 FL (6.5-10.1) Neutrophils (%) (Auto) 72.0 % (45.0-75.0) 71.3 % (45.0-75.0) Lymphocytes (%) (Auto) 14.0 % (20.0-45.0) 17.0 % (20.0-45.0) Monocytes (%) (Auto) 12.0 % (1.0-10.0) 10.9 % (1.0-10.0) Eosinophils (%) (Auto) 0.0 % (0.0-3.0) 0.0 % (0.0-3.0) Basophils (%) (Auto) 2.0 % (0.0-2.0) 0.9 % (0.0-2.0) Sodium Level 131 MMOL/L (136-145) 133 MMOL/L (136-145) Potassium Level 4.4 MMOL/L (3.5-5.1) 4.0 MMOL/L (3.5-5.1) Chloride Level 91 MMOL/L (98-107) 94 MMOL/L (98-107) Carbon Dioxide Level 28 MMOL/L (21-32) 28 MMOL/L (21-32) Anion Gap 12 mmol/L (5-15) 11 mmol/L (5-15) Blood Urea Nitrogen 78 mg/dL (7-18) 61 mg/dL (7-18) Creatinine 5.8 MG/DL (0.55-1.30) 5.1 MG/DL (0.55-1.30) Estimat Glomerular Filtration Rate 9.8 mL/min (>60) 11.4 mL/min (>60) Glucose Level 109 MG/DL (74-106) 103 MG/DL (74-106) Calcium Level 8.7 MG/DL (8.5-10.1) 9.1 MG/DL (8.5-10.1) Ferritin 526 NG/ML (8-388) Thyroid Stimulating Hormone (TSH) 7.596 uiU/mL (0.358-3.740) Height (Feet): 5 Height (Inches): 4.00 Weight (Pounds): 222 General Appearance: alert Objective PE General Appearance: mild distress, moderate distress Lines, tubes and drains: peripheral HEENT: EOMI, thrush, tonsils swollen ++trach Neck: normal inspection Respiratory/Chest: decreased breath sounds, accessory muscle use Cardiovascular/Chest: tachycardia Abdomen: soft, no organomegaly, no mass, ++ peg Extremities: other Skin Exam: warm/dry, rash Neurologic: alert, responsive Zacarias Khoury MD January 10, 2019 16:56
--- NOTE | 2019-01-10 17:51 | General Progress Note ---
Assessment/Plan Assessment/Plan: #Right heel diabetic foot ulcer without osteomyelitis #PAD #Right IJ DVT -seen by Podiatry and ID -s/p Vanco x 2 weeks during HD -continue Eliquis -Vascular Surgery and Hematology following #Acute Resp hypercapnic failure s/p tracheostomy #Angioedema #Large right pleural effusion # R side trapped lung -continue trach care -Remains vent-dependant, breathing trials ongoing -Right thoracentesis 01/01/19 with 2.3 lt removed. Post procedure CXR with R trapped lung. -Wean vent per Pulm #End-stage renal disease, on dialysis -W- #RUE edema #Anasarca, ascites, scrotal edema, pleural effusion due to hypoalbuminemia -HD with UF per Nephrology -s/p PRBC transfusion during HD #Coronary artery disease -continue ASA, Coreg, atorvastatin -cardiology following #Type 2 DM -ISS #Acute metabolic encephalopathy -continue supportive care -Neurology following #history of chronic HCV infection #history of liver transplant -continue Prograf -GI following #Abdominal distension and ascites s/p therapeutic paracentesis -no nausea, vomiting or tenderness -continue supportive care -GI following -s/p paracentesis 12/31/18 4.1 lt #Dysphagia S/p PEG with PEG site cellulitis -s/p antibiotics per ID and GI -continue local wound care -tolerating tube feeds # FULL CODE Subjective Date patient seen: January 10, 2019 ROS Limited/Unobtainable: No Allergies: Coded Allergies: CEPHALEXIN (Unverified Allergy, Unknown, 02/24/14) SULFAMETHOXAZOLE (Unverified Allergy, Unknown, 02/24/14) TRIMETHOPRIM (Unverified Allergy, Unknown, 02/24/14) Subjective Medicine follow up for acute resp failure, PAD, right heel infected DFU, ESRD, anasarca secondary to hypoalbuminemia, right IJ DVT. S/p 4 liter paracentesis and 2 liter thoracentesis No new issues or complaints overnight. No acute events overnight Objective Last 24 Hour Vital Signs Date Time Temp Pulse Resp B/P (MAP) Pulse Ox O2 Delivery O2 Flow Rate FiO2 01/10/19 16:42 75 27 40 01/10/19 16:00 40 01/10/19 16:00 Mechanical Ventilator 01/10/19 16:00 74 01/10/19 15:06 81 26 40 01/10/19 13:18 98 01/10/19 13:06 77 26 40 01/10/19 12:00 Mechanical Ventilator 01/10/19 12:00 98.6 73 28 153/69 (97) 99 01/10/19 12:00 74 01/10/19 12:00 40 01/10/19 11:29 79 25 40 01/10/19 08:45 82 28 40 01/10/19 08:00 40 01/10/19 08:00 Mechanical Ventilator 01/10/19 08:00 72 01/10/19 08:00 98.0 74 27 138/71 (93) 99 01/10/19 06:59 76 26 40 01/10/19 05:40 97.5 01/10/19 05:06 80 24 40 01/10/19 04:00 80 01/10/19 04:00 40 01/10/19 04:00 97.5 83 22 110/71 (84) 100 01/10/19 04:00 Mechanical Ventilator 01/10/19 03:21 78 20 40 01/10/19 01:28 71 26 40 01/10/19 00:00 77 01/10/19 00:00 Mechanical Ventilator 01/09/19 23:25 81 24 40 01/09/19 23:22 97.0 86 22 91/74 (80) 100 01/09/19 21:02 84 24 40 01/09/19 20:40 96.4 01/09/19 20:04 78 22 40 01/09/19 20:00 40 01/09/19 20:00 Mechanical Ventilator 01/09/19 20:00 97.7 73 18 147/75 (99) 100 01/09/19 19:56 80 Intake and Output 01/09/19 01/10/19 19:00 07:00 Intake Total 460 ml 570 ml Balance 460 ml 570 ml Free Water 100 ml 180 ml Tube Feeding 360 ml 390 ml # Bowel Movements 6 2 Height (Feet): 5 Height (Inches): 4.00 Weight (Pounds): 222 Objective General Appearance: no apparent distress, alert Neck: normal alignment, supple Cardiovascular: normal rate, regular rhythm, regularly irregular Respiratory/Chest: lungs clear, normal breath sounds, no respiratory distress Gloria Wilson MD January 10, 2019 17:51
[2019-01-10 20:00] VITALS: BP 116/55
[2019-01-11] VITALS: BP 137/85
[2019-01-11] MEDS: NovoLOG Insulin Flexpen SUBQ SCH ×5 (00:04→23:54)
--- NOTE | 2019-01-11 00:45 | Progress Note ---
DATE: 01/10/2019 SUBJECTIVE: The patient is compliant with medication and care. However, he believes that he is not getting better or improved. The patient is having low energy, depressed mood, anhedonia, worthlessness, or hopelessness. MENTAL STATUS EXAMINATION: The patient is oriented x4. The mood is slightly better today. Affect is constricted. Congruent with mood. Thought process is concrete. Thought content, no suicidal or homicidal ideations. Memory is impaired Insight and judgment is fair. ASSESSMENT: 1. Depressive disorder. 2. Anxiety disorder. PLAN: We will continue the Celexa. Continue the Remeron. Provide the patient with reality orientation and supportive therapy. Jeffrey Lala M.D. DR: LINDA JOB#: [id number] CC: MARIA VICTORIA
[2019-01-11 04:00] VITALS: BP 123/53
[2019-01-11 08:00] VITALS: BP 104/54
[2019-01-11] MEDS: Eliquis 2.5mg tablet GT SCH ×2 (09:00→18:03)
--- NOTE | 2019-01-11 09:49 | General Progress Note ---
Assessment/Plan Assessment/Plan: #Right heel diabetic foot ulcer without osteomyelitis #PAD #Right IJ DVT -seen by Podiatry and ID -s/p Vanco x 2 weeks during HD -continue Eliquis -Vascular Surgery and Hematology following #Acute Resp hypercapnic failure s/p tracheostomy #Angioedema #Large right pleural effusion # R side trapped lung -continue trach care -Remains vent-dependant, breathing trials ongoing -Right thoracentesis 01/01/19 with 2.3 lt removed. Post procedure CXR with R trapped lung. -Wean vent per Pulm #End-stage renal disease, on dialysis -W- #RUE edema #Anasarca, ascites, scrotal edema, pleural effusion due to hypoalbuminemia -HD with UF per Nephrology -s/p PRBC transfusion during HD #Coronary artery disease -continue ASA, Coreg, atorvastatin -cardiology following #Type 2 DM -ISS #Acute metabolic encephalopathy -continue supportive care -Neurology following #history of chronic HCV infection #history of liver transplant -continue Prograf -GI following #Abdominal distension and ascites s/p therapeutic paracentesis -no nausea, vomiting or tenderness -continue supportive care -GI following -s/p paracentesis 12/31/18 4.1 lt #Dysphagia S/p PEG with PEG site cellulitis -s/p antibiotics per ID and GI -continue local wound care -tolerating tube feeds # FULL CODE Subjective Date patient seen: January 11, 2019 Time patient seen: 08:00 ROS Limited/Unobtainable: Yes Cardiovascular: Denies: chest pain Respiratory: Denies: cough Gastrointestinal/Abdominal: Denies: abdomen distended, abdominal pain Allergies: Coded Allergies: CEPHALEXIN (Unverified Allergy, Unknown, 02/24/14) SULFAMETHOXAZOLE (Unverified Allergy, Unknown, 02/24/14) TRIMETHOPRIM (Unverified Allergy, Unknown, 02/24/14) Subjective Medicine follow up for acute resp failure, PAD, right heel infected DFU, ESRD, anasarca secondary to hypoalbuminemia, right IJ DVT. S/p 4 liter paracentesis and 2 liter thoracentesis No new complaints. Objective Last 24 Hour Vital Signs Date Time Temp Pulse Resp B/P (MAP) Pulse Ox O2 Delivery O2 Flow Rate FiO2 01/11/19 08:00 98.1 69 26 104/54 (71) 100 01/11/19 08:00 40 01/11/19 08:00 Mechanical Ventilator 01/11/19 07:08 78 25 40 01/11/19 05:05 79 24 40 01/11/19 04:00 40 01/11/19 04:00 98.3 70 22 123/53 (76) 100 01/11/19 04:00 72 01/11/19 04:00 Mechanical Ventilator 01/11/19 03:14 72 23 40 01/11/19 01:07 70 23 40 01/11/19 00:00 98.2 85 22 137/85 (102) 100 01/11/19 00:00 79 01/11/19 00:00 Mechanical Ventilator 01/11/19 00:00 40 01/10/19 22:48 76 22 40 01/10/19 21:12 78 27 40 01/10/19 20:00 40 01/10/19 20:00 80 01/10/19 20:00 Mechanical Ventilator 01/10/19 20:00 98.0 78 22 116/55 (75) 100 01/10/19 19:25 72 27 40 01/10/19 16:42 75 27 40 01/10/19 16:00 40 01/10/19 16:00 Mechanical Ventilator 01/10/19 16:00 97.6 75 28 155/87 (109) 99 01/10/19 16:00 74 01/10/19 15:06 81 26 40 01/10/19 13:18 98 01/10/19 13:06 77 26 40 01/10/19 12:00 Mechanical Ventilator 01/10/19 12:00 98.6 73 28 153/69 (97) 99 01/10/19 12:00 74 01/10/19 12:00 40 01/10/19 11:29 79 25 40 Intake and Output 01/10/19 01/11/19 19:00 07:00 Intake Total 320 ml 505 ml Output Total 1 ml Balance 320 ml 504 ml Free Water 50 ml Tube Feeding 270 ml 505 ml Stool Total 1 ml # Bowel Movements 1 Height (Feet): 5 Height (Inches): 4.00 Weight (Pounds): 226 General Appearance: alert Neck: normal alignment Cardiovascular: normal rate, regular rhythm Respiratory/Chest: lungs clear, normal breath sounds Abdomen: non tender, soft Dennis Branham MD January 11, 2019 09:49
[2019-01-11 12:00] VITALS: BP 160/72
--- NOTE | 2019-01-11 12:40 | Nephrology Progress Note ---
Assessment/Plan Problem List: (1) ESRD (end stage renal disease) on dialysis (2) Foot ulcer (3) CHF (congestive heart failure) Assessment: Ej Fx 20 % (4) Pacemaker (5) Acute respiratory failure Assessment: with Co2 retention (6) G-tube site cellulitis Assessment ESRD with high K and SOB on admit Foot ulcer, likely infected High Troponin likely NSTMI Pacer , Pleural effusion s/p CABGS s/p Liver transplant Plan dialysis 01/04 and 01/06 and 01/08 next 01/11 labs before HD noted BP low- improved on midodrine per consultants, GI GT site infection, topical antibiotic Neuro note appreciated placement in process vascular esteban regarding heel ulcer per Dr Mcgill pain med change to dilaudid GT Now has tracheostomy and PEG Adjust BP meds add nitro paste TID Antibiotics by ID per cardio and ID Podiatry and Vascular surgical fu ? DC planning? Subjective ROS Limited/Unobtainable: No Objective Objective Last 24 Hour Vital Signs Date Time Temp Pulse Resp B/P (MAP) Pulse Ox O2 Delivery O2 Flow Rate FiO2 01/11/19 11:25 76 22 40 01/11/19 09:00 67 27 40 01/11/19 08:00 98.1 69 26 104/54 (71) 100 01/11/19 08:00 40 01/11/19 08:00 Mechanical Ventilator 01/11/19 07:44 71 01/11/19 07:08 78 25 40 01/11/19 05:05 79 24 40 01/11/19 04:00 40 01/11/19 04:00 98.3 70 22 123/53 (76) 100 01/11/19 04:00 72 01/11/19 04:00 Mechanical Ventilator 01/11/19 03:14 72 23 40 01/11/19 01:07 70 23 40 01/11/19 00:00 98.2 85 22 137/85 (102) 100 01/11/19 00:00 79 01/11/19 00:00 Mechanical Ventilator 01/11/19 00:00 40 01/10/19 22:48 76 22 40 01/10/19 21:12 78 27 40 01/10/19 20:00 40 01/10/19 20:00 80 01/10/19 20:00 Mechanical Ventilator 01/10/19 20:00 98.0 78 22 116/55 (75) 100 01/10/19 19:25 72 27 40 01/10/19 16:42 75 27 40 01/10/19 16:00 40 01/10/19 16:00 Mechanical Ventilator 01/10/19 16:00 97.6 75 28 155/87 (109) 99 01/10/19 16:00 74 01/10/19 15:06 81 26 40 01/10/19 13:18 98 01/10/19 13:06 77 26 40 Intake and Output 01/10/19 01/11/19 19:00 07:00 Intake Total 320 ml 505 ml Output Total 1 ml Balance 320 ml 504 ml Free Water 50 ml Tube Feeding 270 ml 505 ml Stool Total 1 ml # Bowel Movements 1 Height (Feet): 5 Height (Inches): 4.00 Weight (Pounds): 226 EENT: other - trach Cardiovascular: normal rate Respiratory/Chest: decreased breath sounds Abdomen: other - PEG Objective no other change Nakul Stevens MD January 11, 2019 12:40
--- NOTE | 2019-01-11 12:57 | Hematology/Onc Progress Note ---
Assessment/Plan Assessment/Plan Assessment and Recs: # Acute non-occlusive dvt, right extremity ultrasound (acute non-occlusive DVT in internal jugular) --> currently is on eliquis 2.5mg po bid --> do not recommend a SVC filter --> given prior bleeding risk, hold off on heparin gtt --> vasc surgeon is aware, seek recs # Anemia of chronic disease due to underlying chronic medical issues --> ferritin is 633, tibc is low --> No evidence of hemolysis is noted, peripheral smear has been reviewed. --> Epogen can be consider if hgb downtrends --> Medications have been reviewed --> evaluate with Gi team prn --> transfuse if hgb is < 7 (will trend CBC daily) --> hgb trend 11.2-->10.9-->10.8-->10.7-->10.2-->9.7-->9.7-->8.5-->9-->9.2-->8.4 -->7.7-->8.8-->9.1 --> s/p transfusion on 01/06 # Failure to thrive is likely related to poor overall status, poor functional status --> with multiple decub ulcerations that are noted, seen by id/surgery --> s/p trach as well --> cea is wnl # Coagulopathy likely secondary to decreased Vitk dependent cofactors (high INR , PT) --> monitor closely for any evidence of bleeding. Currently is on eliquis --> VIT K on prn basis sq can be administered --> recently has improved inr 1.2-->1.1-->1.2 # Acute respiratory failure is now s/p trach to vent --> as per surgery recs # Ground glass opacities present on imaging of lung --> with pleural effusions, s/p drainage at this time --> no evidence for malignancy is noted --> as per pulm/id # Pleural effusion --> s/p thoracentesis, s/p paracentesis 12/31 --> no evidence of malignancy # Hyperkalemia --> kayxelate on prn basis per renal --> monitor K # Renal failure --> per renal recs, appreciated --> getting hd as per schedule # Altered level of consciousness --> currently as per baseline --> neuro eval prn # PAD off heparin gtt and now on eliquis --> per vasc and cards --> 12/22 s/p right leg angiogram with intervention --> on eliquis, continue # Gt tube cellulitis, on topical abx as per id around site The timing of this note does not necessarily reflect the time of the patient was seen. Greatly appreciate consultation! Subjective Constitutional: Denies: no symptoms, chills, fever, malaise, weakness, other HEENT: Denies: no symptoms, eye pain, blurred vision, tearing, double vision, ear pain, ear discharge, nose pain, nose congestion, throat pain, throat swelling, mouth pain, mouth swelling, other Cardiovascular: Denies: no symptoms, chest pain, edema, irregular heart rate, lightheadedness, palpitations, syncope, other Gastrointestinal/Abdominal: Denies: no symptoms, abdomen distended, abdominal pain, black stools, tarry stools, blood in stool, constipated, diarrhea, difficulty swallowing, nausea, poor appetite, poor fluid intake, rectal bleeding , vomiting, other Allergies: Coded Allergies: CEPHALEXIN (Unverified Allergy, Unknown, 02/24/14) SULFAMETHOXAZOLE (Unverified Allergy, Unknown, 02/24/14) TRIMETHOPRIM (Unverified Allergy, Unknown, 02/24/14) Subjective 11/30: comfortable, on abx, no complaints, on t-piece 12/01: to have hd done potentially tomorrow, is more alert/awake 12/02: no major bleeding, hgb remains approx 11, no changes 12/03: no events, breathing mildly better, hgb is improved 12/04: on vent/trach, no major changes, sr ekg 12/10: small amount of secretions, on trach/vent, no issues otherwise 12/11: no major issues, no complaints, labs reviewed, no sig changes 12/13: no events to report, no fevers or chills, awaiting placement 12/14: no changes, no major events to report, no fevers or chills 12/15: pending placement, getting gt feeds and hd as per renal 12/16: labs have been reviewed, cbc noted, no changes 12/17: no events, no fevers, no cp, hgb remains stable 12/18: restarted on heparin gtt, seen by latia, clarisa 12/20: continues to be on heparin gtt, no bleeding reported, no f/c 12/21: hd for today, no fevers or chils, off hep gtt on eliquis 12/22: to get hd tomorrow, today is s/p right leg angiogram with intervention 12/23: hgb remins stable, no fevers or chills reported 12/24: no events, no bleeding, vitals reviewed, cbc stable 12/25: no events, no bleeding, on vent, hgb 9 12/27: no changes, no f/c, no night swearts, seen with other providers 12/28: right extremity ultrasound (acute non-occlusive DVT in internal jugular, on eliquis 12/29: no events, no night sweats, seen by gi, no bleeding 12/30: cbc has been reviewed, no f/c, no night sweats reported 12/31: no events, eliquis is on hold cbc has been reviewed, bp elevated 01/01: no fevers or chills, cbc reviewed, hgb 9.3, getting HD 01/02: no events noted, getting norco for pain, hgb stable 01/04: not events to report, no bleeding, refusing ivl at this time, cbc reviewed 01/05: no fevers or chills noted, s/p trach/vent, no f/c, no chills noted 01/06: no events, to get 1 unit prbc today, renal seen, on abx 01/07: hd for tomorrow, seen by renal, no events, cbc reviewed 01/08: getting Hd today, seen by renal, no major events, in sr 01/10: no events to report, to get hd tomorrow, hgb stable 01/11: on vent/trach, gtube, tolerating treatment well, hd today Objective Objective Current Medications Medications (Trade) Dose Ordered Sig/Aleks Route PRN Reason Start Time Stop Time Status Last Admin Dose Admin Acetaminophen (Tylenol) 650 mg Q6H PRN GT Mild Pain/Temp > 100.5 12/21/18 16:00 01/20/19 15:59 01/10/19 05:10 Acetaminophen/ Hydrocodone Bitart ([place] 5/325) 1 tab Q4H PRN ORAL Moderate Pain (Pain Scale 4-6) 01/05/19 14:30 01/12/19 14:29 01/10/19 23:26 Apixaban (Eliquis) 2.5 mg BID GT 01/01/19 21:00 01/31/19 20:59 01/11/19 09:00 Clotrimazole (Lotrimin) 1 applic DAILY TOPIC 01/08/19 18:00 02/07/19 17:59 01/11/19 09:00 Collagenase (Santyl) 1 applic DAILY TOPIC 12/29/18 09:00 01/28/19 08:59 01/11/19 09:00 Dextrose (Dextrose 50%) 25 ml Q30M PRN IV Hypoglycemia 12/31/18 23:00 01/30/19 22:59 Dextrose (Dextrose 50%) 50 ml Q30M PRN IV Hypoglycemia 12/31/18 23:00 01/30/19 22:59 Epoetin Vini (Epoetin Vini(ESRD on dialysis)) 10,000 unit FRI-FRI-FRI SUBQ 01/06/19 21:00 02/05/19 20:59 01/08/19 20:38 Escitalopram Oxalate (Lexapro) 20 mg DAILY GT 01/05/19 09:00 02/04/19 08:59 01/11/19 08:59 Hydralazine HCl (Apresoline) 25 mg Q4H PRN GT bp over 160 syst 01/06/19 15:00 02/05/19 14:59 Insulin Aspart (NovoLOG) EVERY 6 HOURS SUBQ 01/01/19 00:00 01/31/19 00:00 01/11/19 12:03 Loperamide HCl (Imodium) 2 mg Q6H PRN GT Diarrhea 01/07/19 11:00 02/06/19 10:59 01/09/19 20:09 Metoclopramide HCl (Reglan) 5 mg Q6H PRN IVP Nausea & Vomiting 12/30/18 17:30 01/29/19 17:29 01/05/19 20:45 Mirtazapine (Remeron) 15 mg BEDTIME GT 12/21/18 21:00 01/20/19 20:59 01/10/19 20:47 Tacrolimus (Prograf) 2 mg MoWeFr@0000,1200 ORAL 12/28/18 00:00 01/27/19 00:00 01/11/19 11:58 Tacrolimus (Prograf) 2 mg SuTuThSa@0900,2100 ORAL 12/26/18 21:00 01/25/19 20:59 01/10/19 20:47 Last 24 Hour Vital Signs Date Time Temp Pulse Resp B/P (MAP) Pulse Ox O2 Delivery O2 Flow Rate FiO2 01/11/19 11:25 76 22 40 01/11/19 09:00 67 27 40 01/11/19 08:00 98.1 69 26 104/54 (71) 100 01/11/19 08:00 40 01/11/19 08:00 Mechanical Ventilator 01/11/19 07:44 71 01/11/19 07:08 78 25 40 01/11/19 05:05 79 24 40 01/11/19 04:00 40 01/11/19 04:00 98.3 70 22 123/53 (76) 100 01/11/19 04:00 72 01/11/19 04:00 Mechanical Ventilator 01/11/19 03:14 72 23 40 01/11/19 01:07 70 23 40 01/11/19 00:00 98.2 85 22 137/85 (102) 100 01/11/19 00:00 79 01/11/19 00:00 Mechanical Ventilator 01/11/19 00:00 40 01/10/19 22:48 76 22 40 01/10/19 21:12 78 27 40 01/10/19 20:00 40 01/10/19 20:00 80 01/10/19 20:00 Mechanical Ventilator 01/10/19 20:00 98.0 78 22 116/55 (75) 100 01/10/19 19:25 72 27 40 01/10/19 16:42 75 27 40 01/10/19 16:00 40 01/10/19 16:00 Mechanical Ventilator 01/10/19 16:00 97.6 75 28 155/87 (109) 99 01/10/19 16:00 74 01/10/19 15:06 81 26 40 01/10/19 13:18 98 01/10/19 13:06 77 26 40 01/10/19 12:00 Mechanical Ventilator 01/10/19 12:00 98.6 73 28 153/69 (97) 99 01/10/19 12:00 74 01/10/19 12:00 40 01/10/19 11:29 79 25 40 01/10/19 08:45 82 28 40 01/10/19 08:00 40 01/10/19 08:00 Mechanical Ventilator 01/10/19 08:00 72 01/10/19 08:00 98.0 74 27 138/71 (93) 99 01/10/19 06:59 76 26 40 01/10/19 05:40 97.5 01/10/19 05:06 80 24 40 01/10/19 04:00 80 01/10/19 04:00 40 01/10/19 04:00 97.5 83 22 110/71 (84) 100 01/10/19 04:00 Mechanical Ventilator 01/10/19 03:21 78 20 40 01/10/19 01:28 71 26 40 01/10/19 00:00 77 01/10/19 00:00 Mechanical Ventilator 01/09/19 23:25 81 24 40 01/09/19 23:22 97.0 86 22 91/74 (80) 100 01/09/19 21:02 84 24 40 01/09/19 20:40 96.4 01/09/19 20:04 78 22 40 01/09/19 20:00 40 01/09/19 20:00 Mechanical Ventilator 01/09/19 20:00 97.7 73 18 147/75 (99) 100 01/09/19 19:56 80 01/09/19 16:58 78 23 40 01/09/19 16:00 40 01/09/19 16:00 Mechanical Ventilator 01/09/19 16:00 96.4 86 25 165/97 (119) 99 01/09/19 15:22 86 01/09/19 15:22 81 36 40 Intake and Output 01/10/19 01/11/19 19:00 07:00 Intake Total 320 ml 505 ml Output Total 1 ml Balance 320 ml 504 ml Free Water 50 ml Tube Feeding 270 ml 505 ml Stool Total 1 ml # Bowel Movements 1 Labs Test 01/09/19 05:31 White Blood Count 5.5 K/UL (4.8-10.8) Red Blood Count 3.57 M/UL (4.70-6.10) Hemoglobin 9.1 G/DL (14.2-18.0) Hematocrit 28.7 % (42.0-52.0) Mean Corpuscular Volume 80 FL (80-99) Mean Corpuscular Hemoglobin 25.4 PG (27.0-31.0) Mean Corpuscular Hemoglobin Concent 31.6 G/DL (32.0-36.0) Red Cell Distribution Width 16.1 % (11.6-14.8) Platelet Count 171 K/UL (150-450) Mean Platelet Volume 6.7 FL (6.5-10.1) Neutrophils (%) (Auto) 71.3 % (45.0-75.0) Lymphocytes (%) (Auto) 17.0 % (20.0-45.0) Monocytes (%) (Auto) 10.9 % (1.0-10.0) Eosinophils (%) (Auto) 0.0 % (0.0-3.0) Basophils (%) (Auto) 0.9 % (0.0-2.0) Sodium Level 133 MMOL/L (136-145) Potassium Level 4.0 MMOL/L (3.5-5.1) Chloride Level 94 MMOL/L (98-107) Carbon Dioxide Level 28 MMOL/L (21-32) Anion Gap 11 mmol/L (5-15) Blood Urea Nitrogen 61 mg/dL (7-18) Creatinine 5.1 MG/DL (0.55-1.30) Estimat Glomerular Filtration Rate 11.4 mL/min (>60) Glucose Level 103 MG/DL (74-106) Calcium Level 9.1 MG/DL (8.5-10.1) Ferritin 526 NG/ML (8-388) Thyroid Stimulating Hormone (TSH) 7.596 uiU/mL (0.358-3.740) Height (Feet): 5 Height (Inches): 4.00 Weight (Pounds): 226 Objective PE General Appearance: mild distress, moderate distress Lines, tubes and drains: peripheral HEENT: EOMI, thrush, tonsils swollen ++trach Neck: normal inspection Respiratory/Chest: decreased breath sounds, accessory muscle use Cardiovascular/Chest: tachycardia Abdomen: soft, no organomegaly, no mass, ++ peg Extremities: other Skin Exam: warm/dry, rash Neurologic: alert, responsive Zacarias Khoury MD January 11, 2019 12:57
--- NOTE | 2019-01-11 13:16 | Cardiac Electrophysiology PN ---
Assessment/Plan Assessment/Plan 1. Troponin leak due to renal failure. No CP or SOB. Nl EF 2. S/P CABG. No CP on Coreg, aspirin and Lipitor 3. NSVT in setting of old SD and CABG. EF 55%. Continue Coreg 4. CHF and right pleural effusion. On hemodialysis. S/P Thoracentesis 5. S/P Right sided [employer] DDD pacemaker with Nl Fx. 6. End-stage renal disease, on hemodialysis per Dr. Stevens 7. Multilevel AOD LE's with non-healing Right foot ulcer. Had abdominal angiogram per Dr Salmeron Antibiotic per Dr. Landis. FU by Dr. Huizar S/P peripheral intervention by Dr. Salmeron 12/22/18 Right foot on Wound-Vac 8. History of liver transplant on Prograf 9. Respiratory failure, S/P tracheostomy. 10. Pleural effusion. s/p 2300 cc thoracentesis 01/01/19 11. Dysphagia, S/P PEG DW RN Subjective Subjective Ne events. Alert in NAD. Objective Last 24 Hour Vital Signs Date Time Temp Pulse Resp B/P (MAP) Pulse Ox O2 Delivery O2 Flow Rate FiO2 01/11/19 13:11 84 26 40 01/11/19 12:00 98.6 94 20 160/72 (101) 100 01/11/19 12:00 Mechanical Ventilator 01/11/19 12:00 40 01/11/19 11:52 77 01/11/19 11:25 76 22 40 01/11/19 09:00 67 27 40 01/11/19 08:00 98.1 69 26 104/54 (71) 100 01/11/19 08:00 40 01/11/19 08:00 Mechanical Ventilator 01/11/19 07:44 71 01/11/19 07:08 78 25 40 01/11/19 05:05 79 24 40 01/11/19 04:00 40 01/11/19 04:00 98.3 70 22 123/53 (76) 100 01/11/19 04:00 72 01/11/19 04:00 Mechanical Ventilator 01/11/19 03:14 72 23 40 01/11/19 01:07 70 23 40 01/11/19 00:00 98.2 85 22 137/85 (102) 100 01/11/19 00:00 79 01/11/19 00:00 Mechanical Ventilator 01/11/19 00:00 40 01/10/19 22:48 76 22 40 01/10/19 21:12 78 27 40 01/10/19 20:00 40 01/10/19 20:00 80 01/10/19 20:00 Mechanical Ventilator 01/10/19 20:00 98.0 78 22 116/55 (75) 100 01/10/19 19:25 72 27 40 01/10/19 16:42 75 27 40 01/10/19 16:00 40 01/10/19 16:00 Mechanical Ventilator 01/10/19 16:00 97.6 75 28 155/87 (109) 99 01/10/19 16:00 74 01/10/19 15:06 81 26 40 01/10/19 13:18 98 Intake and Output 01/10/19 01/11/19 18:59 06:59 Intake Total 320 ml 490 ml Output Total 1 ml Balance 320 ml 489 ml Free Water 50 ml Tube Feeding 270 ml 490 ml Stool Total 1 ml # Bowel Movements 1 Objective HEAD AND NECK: No JVD. Tracheostomy intact LUNGS: Clear CARDIOVASCULAR: Irregular S1 and S2 with no gallop. Sternotomy is intact Pacemaker in the right subclavian ABDOMEN: Soft. PEG in place EXTREMITIES: 1+ pitting edema. Right heel in dressing and connected to WoundVac Shivam Sharpe MD January 11, 2019 13:16
--- NOTE | 2019-01-11 13:17 | Neurology Progress Note ---
Interim History Interim History Interim History Mr. Restrepo feels well today. His mood has been better. He is in good spirits. The right heel is less painful - and is healing well. The right heel dressing was changed. The right upper extremity is less swollen and less painful. He has been able to sleep better. He is breathing well but still artificially ventilated. He feels that his strength is stable. The mind is clearer. He is eager to eat. He denies any new neurological symptoms. Review of Systems Neuro Review of Systems Benign. Objective Physical Exam Last Vital Signs Date Time Temp Pulse Resp B/P (MAP) Pulse Ox O2 Delivery O2 Flow Rate FiO2 01/11/19 11:25 76 22 40 01/11/19 08:00 98.1 104/54 (71) 100 01/11/19 08:00 Mechanical Ventilator 01/02/19 16:00 12.0 Neurologic Exam Objective PHYSICAL EXAMINATION: GENERAL: He is a well-developed and well-nourished, pleasant gentleman, lying in bed, connected to a ventilator via a tracheostomy. HEAD: Normocephalic and atraumatic. EENT: Examination benign. NECK: No neck rigidity was observed. He did have a tracheostomy. NEUROLOGICAL EXAMINATION: MENTAL STATUS EXAMINATION: He was awake and alert. He was oriented to person, place and time. He was able to recall 3/3 words immediately and was able to remember them in 1 and 3 minutes. He was able to remember presidents Trump through Mak Keny. His mathematical skills were fair. His visuo-spatial function was preserved. SPEECH: Could not be tested, but he was able to mouth words relatively well. LANGUAGE: He was able to comprehend and express himself relatively well. CRANIAL NERVES EXAMINATION: II: The visual mckeon were intact to confrontation testing. III, IV & : The external ocular movements were full and the pupils 3 mm in diameter, equal, round, regular, and reactive sluggishly to light. V: He had normal facial sensations, and the temporales, masseters, and pterygoids functioned normally. VII: He had normal facial expressions and no facial asymmetry. VIII: Hearing was decreased bilaterally with worse hearing on the left side compared to the right. IX: The palate moved symmetrically on phonation. X: Could not be tested. XI: The sternocleidomastoids and trapezii functioned normally. XII: The tongue was in the midline without any fasciculations or atrophy. MOTOR SYSTEM: The tone was normal in all four extremities. Examination of muscle mass revealed generalized muscle wasting. Examination of power revealed G 5/5 power except for G 4+/5 power in the iliopsoas muscles bilaterally, and G 4/5 in the right ankle and toes. Power in the right upper extremity was limited by pain. Power in the right foot was also limited by pain. SENSORY EXAMINATION: He had intact sensations to light touch. Other sensory modalities could not be tested adequately. REFLEXES: 1+ and bilaterally symmetrical at the biceps, triceps, brachioradialis , and knees, 0 at both ankles. The plantar responses were flexor bilaterally. COORDINATION: He performed well on [id number] testing. STANCE & GAIT: Were deferred. Impression/Recommendations Diagnostic Impression 1. Mr. Gregg Restrepo is a 68-year-old, right-handed, gentleman with past history of multiple medical problems including hypertension, diabetes mellitus, end-stage renal disease for which he is hemodialysis dependent, prior episodes of sepsis, and prior episodes of encephalopathy, who was admitted to [facility] on October 31, 2018. Following that, he has had a stormy hospital course including pneumonia and sepsis, right foot infection, respiratory failure for which he has needed tracheostomy and in addition he has exhibited an alteration in his mental state with some waxing and waning of his mental state. 2. He feels well today. His mood has been better. He is in good spirits. The right heel is less painful - and is healing well. The right heel dressing was changed. The right upper extremity is less swollen and less painful. He has been able to sleep better. He is breathing well but still artificially ventilated. He feels that his strength is stable. The mind is clearer. He is eager to eat. He denies any new neurological symptoms. 3. On neurological examination, at this time, he is fully oriented, his recent memory is normal. He has minimally impaired higher cognitive function. He is able to comprehend and express himself well. He does have mild G 4+/5 weakness in the iliopsoas muscles bilaterally. Power in the right upper extremity was limited by pain. Power in the right foot was also limited by pain. He had globally diminished deep tendon reflexes with loss of ankle jerks, but no definite focal or lateralizing neurological findings. 4. His latest laboratory data on my initial evaluation revealed that he was anemic with a hemoglobin of 10.8 G. His last blood gas performed on 11/14/2018 revealed that he had a pCO2 elevated at 56.4 with a normal pO2 of 88.3 and normal pH of 7.37. His latest chemistry panel revealed that he was mildly hyponatremic with a sodium of 130, and had a chloride of 90. The BUN was elevated at 75, creatinine elevated at 7.4, glucose elevated at 156, Hemoglobin A1c elevated at 6.9%, Alkaline phosphatase elevated at 131, and ProBNP greater than 35,000. His last B12 level on 11/07/2018 was 723. His last folate on was 18.6. His last TSH on 12/06/2018 was 4.82, which is minimally elevated. 5. The CT scan of the brain performed on 11/10/2018 was benign for acute intracranial pathology. 6. The EEG done on 12/08/18 revealed left temporal dysfunction. 7. The patient's history and neurological examination are most consistent with mild multifactorial encephalopathy, which apparently waxes and wanes, but no definite focal neurological dysfunction. His encephalopathy is stable. 8. He tells me that he had a brain bleed many years ago. I did review his imaging done at [facility] a few years ago and he had closed head injuries with subarachnoid and subdural blood in the past. 9. His mood has improved. 10. There has never been a doubt regarding his ability to make decisions regarding his medical care. 11. He is eager to eat again. Recommendations 1. Continue present management. 2. Continue to correct the patient's toxic metabolic imbalances. 3. Mobilize with PT/OT. 4. Consider getting swallowing evaluation so that he can be fed for enjoyment. 5. Observe. Pantera Cool M.D., M.S.P.H. Pantera Cool MD January 11, 2019 13:17
--- NOTE | 2019-01-11 14:52 | Infectious Diseases Prog Note ---
Assessment/Plan Problems: (1) Diarrhea Assessment & Plan: with no infectious etiology so far , and negative stool for C diff toxin , and no pathogens on stool culture , avoid laxatives, monitor clinically , encourage hydration (2) Foot ulcer Assessment & Plan: with MRSA grew out of it in the past, S/P vancomycin treatment with HD for two weeks, had vascular eval with revascularization to the right leg , S/P ulcer resection by stemmer machine . deep ulcer culture grew MRSA and E.coli with diphtheroids , possible colonization , with no evidence of active infection as per discussion with podiatry , no need to be started on antibiotics for now , will continue to monitor clinically and make recommendations as necessary . bone scan ruled out osteomyelitis of the heel before, couldn't do an MRI since on the vent . continue local wound care as per stemmer machine . (3) Thrush, oral Assessment & Plan: continue local nystatin as needed , S/P micafungin for three weeks empirically (4) HCV antibody positive Assessment & Plan: no evidence of active infection, with undetectable viral load , suspect due to previous infection , cleared, S/P liver transplant . (5) DM (diabetes mellitus) Assessment & Plan: recommend tight glycemic control to keep blood glucose between 100-140 (6) CHF (congestive heart failure) Assessment & Plan: on HD , renal is following, monitor daily weight (7) Severe tongue swelling Assessment & Plan: improving , s/p tracheostomy to protect his airway since respiratory status worsened . now improving, pulmonary is following (8) Pleural effusion Assessment & Plan: recurrent on the right, with lung collapse , S/P thoracentesis X 3 now with removal of 2.3 liters of clear fluids on 12/31/18 . await fluids culture and gram stain, with PH and Glucose level . PREVIOUS culture were negative with negative cytology. pulmonary is following (9) Ascites Assessment & Plan: S/P paracentesis with removal of 4.1 liters of fluids, culture so far is negative Assessment/Plan will continue to monitor patient on daily basis and make recommendations as necessary since he is high risk for recurrent infection Subjective Constitutional: Reports: no symptoms HEENT: Reports: no symptoms Respiratory: Reports: no symptoms Breasts: Reports: no symptoms Cardiovascular: Reports: no symptoms Gastrointestinal/Abdominal: Reports: no symptoms Genitourinary: Reports: no symptoms Neurologic: Reports: no symptoms Psychiatric: Reports: no symptoms Skin: Reports: no symptoms Endocrine: Reports: no symptoms Hematologic: Reports: no symptoms Musculoskeletal: Reports: no symptoms Allergies: Coded Allergies: CEPHALEXIN (Unverified Allergy, Unknown, 02/24/14) SULFAMETHOXAZOLE (Unverified Allergy, Unknown, 02/24/14) TRIMETHOPRIM (Unverified Allergy, Unknown, 02/24/14) Subjective he was comfortable, lying in bed, denied any fever or chills, no significant secretions, no SOB . has heel pain at the surgery site with wound VAC in place , but no draining coming out . no diarrhea . Objective Vital Signs Last 24 Hour Vital Signs Date Time Temp Pulse Resp B/P (MAP) Pulse Ox O2 Delivery O2 Flow Rate FiO2 01/11/19 13:11 84 26 40 01/11/19 12:00 98.6 94 20 160/72 (101) 100 01/11/19 12:00 Mechanical Ventilator 01/11/19 12:00 40 01/11/19 11:52 77 01/11/19 11:25 76 22 40 01/11/19 09:00 67 27 40 01/11/19 08:00 98.1 69 26 104/54 (71) 100 01/11/19 08:00 40 01/11/19 08:00 Mechanical Ventilator 01/11/19 07:44 71 01/11/19 07:08 78 25 40 01/11/19 05:05 79 24 40 01/11/19 04:00 40 01/11/19 04:00 98.3 70 22 123/53 (76) 100 01/11/19 04:00 72 01/11/19 04:00 Mechanical Ventilator 01/11/19 03:14 72 23 40 01/11/19 01:07 70 23 40 01/11/19 00:00 98.2 85 22 137/85 (102) 100 01/11/19 00:00 79 01/11/19 00:00 Mechanical Ventilator 01/11/19 00:00 40 01/10/19 22:48 76 22 40 01/10/19 21:12 78 27 40 01/10/19 20:00 40 01/10/19 20:00 80 01/10/19 20:00 Mechanical Ventilator 01/10/19 20:00 98.0 78 22 116/55 (75) 100 01/10/19 19:25 72 27 40 5/26/19 16:42 75 27 40 01/10/19 16:00 40 01/10/19 16:00 Mechanical Ventilator 01/10/19 16:00 97.6 75 28 155/87 (109) 99 01/10/19 16:00 74 01/10/19 15:06 81 26 40 Height (Feet): 5 Height (Inches): 4.00 Weight (Pounds): 226 General Appearance: WD/WN, no acute distress HEENT: normocephalic, atraumatic, anicteric, mucous membranes moist, PERRL, EOMI, pharynx normal, supple, no JVD Respiratory/Chest: chest wall non-tender, lungs clear, normal breath sounds, no respiratory distress, no accessory muscle use Cardiovascular: normal peripheral pulses, normal rate, regular rhythm, no gallop/murmur, no JVD Abdomen: normal bowel sounds, soft, non tender, no organomegaly, non distended , no mass, no scars Genitourinary: normal external genitalia Extremities: no cyanosis, no clubbing Skin: no rash, no lesions, ulcers 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: sample card maker 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 normal, no motor/sensory deficits, alert, responsive Lymphatic: no neck adenopathy, no groin adenopathy Musculoskeletal: normal muscle bulk, no effusion Current Medications Medications (Trade) Dose Ordered Sig/Aleks Route PRN Reason Start Time Stop Time Status Last Admin Dose Admin Acetaminophen (Tylenol) 650 mg Q6H PRN GT Mild Pain/Temp > 100.5 12/21/18 16:00 01/20/19 15:59 01/10/19 05:10 Acetaminophen/ Hydrocodone Bitart (Mason 5/325) 1 tab Q4H PRN ORAL Moderate Pain (Pain Scale 4-6) 01/05/19 14:30 01/12/19 14:29 01/10/19 23:26 Apixaban (Eliquis) 2.5 mg BID GT 01/01/19 21:00 01/31/19 20:59 01/11/19 09:00 Clotrimazole (Lotrimin) 1 applic DAILY TOPIC 01/08/19 18:00 02/07/19 17:59 01/11/19 09:00 Collagenase (Santyl) 1 applic DAILY TOPIC 12/29/18 09:00 01/28/19 08:59 01/11/19 09:00 Dextrose (Dextrose 50%) 25 ml Q30M PRN IV Hypoglycemia 12/31/18 23:00 01/30/19 22:59 Dextrose (Dextrose 50%) 50 ml Q30M PRN IV Hypoglycemia 12/31/18 23:00 01/30/19 22:59 Epoetin Vini (Epoetin Vini(ESRD on dialysis)) 10,000 unit SUBQ 01/06/19 21:00 02/05/19 20:59 01/08/19 20:38 Escitalopram Oxalate (Lexapro) 20 mg DAILY GT 01/05/19 09:00 02/04/19 08:59 01/11/19 08:59 Hydralazine HCl (Apresoline) 25 mg Q4H PRN GT bp over 160 syst 01/06/19 15:00 02/05/19 14:59 Insulin Aspart (NovoLOG) EVERY 6 HOURS SUBQ 01/01/19 00:00 01/31/19 00:00 01/11/19 12:03 Loperamide HCl (Imodium) 2 mg Q6H PRN GT Diarrhea 01/07/19 11:00 02/06/19 10:59 01/09/19 20:09 Metoclopramide HCl (Reglan) 5 mg Q6H PRN IVP Nausea & Vomiting 12/30/18 17:30 01/29/19 17:29 01/05/19 20:45 Mirtazapine (Remeron) 15 mg BEDTIME GT 12/21/18 21:00 01/20/19 20:59 01/10/19 20:47 Tacrolimus (Prograf) 2 mg MoWeFr@0000,1200 ORAL 12/28/18 00:00 01/27/19 00:00 01/11/19 11:58 Tacrolimus (Prograf) 2 mg SuTuThSa@0900,2100 ORAL 12/26/18 21:00 01/25/19 20:59 01/10/19 20:47 Francois Landis M.D. January 11, 2019 14:52
[2019-01-11 16:00] VITALS: BP 117/74
[2019-01-11 20:00] VITALS: BP 108/60
[2019-01-11] MEDS: Epoetin Alfa-EPBX(ESRD on dialysis)10,000 unit/ml vial SUBQ SCH (20:40)
[2019-01-11] MEDS: HYDROcodone/Acetamin 5/325 tab ORAL PRN (20:41)
--- NOTE | 2019-01-11 23:30 | Progress Note ---
DATE: 01/11/2019 SUBJECTIVE: The patient was in bed, in no acute distress, calm. The patient is feeling less depressed as he is physically improving. MENTAL STATUS EXAMINATION: The patient is alert and oriented x3. Mood is still depressed. Affect is constricted, congruent with mood. Thought process is concrete. Thought content,no suicidal or homicidal ideation. Memory is still impaired, however, improving. ASSESSMENT: 1. Major depressive disorder. 2. Anxiety disorder. 3. Encephalopathy, improving. PLAN: We will continue the current medications. Provide the patient with reality orientation and supportive therapy. Jeffrey Lala M.D. DR: CARMELLA JOB#: [id number] CC:
[2019-01-12] VITALS: BP 114/61
[2019-01-12 04:00] VITALS: BP 107/92
[2019-01-12] MEDS: HYDROcodone/Acetamin 5/325 tab ORAL PRN (04:57)
[2019-01-12] MEDS: NovoLOG Insulin Flexpen SUBQ SCH ×4 (05:57→23:01)
[2019-01-12] MEDS: Eliquis 2.5mg tablet GT SCH ×2 (09:48→18:05)
--- NOTE | 2019-01-12 10:27 | GI Progress Note ---
Assessment/Plan Problems: (1) Foot ulcer ICD Codes: L97.509 - Non-pressure chronic ulcer of other part of unspecified foot with unspecified severity SNOMED: 85789697 Qualifiers: Qualified Codes: L97.511 - Non-pressure chronic ulcer of other part of right foot limited to breakdown of skin (2) DM (diabetes mellitus) ICD Codes: E11.9 - Type 2 diabetes mellitus without complications SNOMED: 36219815 (3) Transplant ICD Codes: Z94.9 - Transplanted organ and tissue status, unspecified SNOMED: 932807733 Status: unchanged Status Narrative Discussed with Dr. Escalera Assessment/Plan History of liver transplant, currently on Prograf History of cholecystectomy status post tracheostomy and PEG Infected G-tube site, fu ID recs C. difficile negative x 2 would care cx >> GRAM NEGATIVE BACILLUS CT AP reviewed, Moderate to large right pleural effusion. Moderate Ascites. s/p Paracentesis yielding 4.1 yield, r/o SBP >> negative for malignant cells Status post right thoracentesis yielding 2.1 L >> negative for malignant cells Continue G-tube feedings GT site care BID/prn topical abx around GT site per ID HD per nephro cont tacrolimus prn transfusions ppi zofran prn Imodium prn, Lomotil for persistent diarrhea follow labs supportive care outpatient Hep C tx, pending RNA PCR The patient was seen and examined at bedside and all new and available data was reviewed in the patients chart. I agree with the above findings, impression and plan. (Patient seen earlier today. Signature stamp does not reflect patient encounter time.). - Jorge Escalera MD Subjective Subjective Limited abdominal distention and discomfort improved diarrhea Objective Last 24 Hour Vital Signs Date Time Temp Pulse Resp B/P (MAP) Pulse Ox O2 Delivery O2 Flow Rate FiO2 01/12/19 08:45 81 26 40 01/12/19 08:00 Mechanical Ventilator 01/12/19 08:00 97.3 79 26 100 01/12/19 08:00 40 01/12/19 07:10 73 25 40 01/12/19 05:28 69 26 40 01/12/19 04:00 97.6 85 20 107/92 (97) 100 01/12/19 04:00 Mechanical Ventilator 01/12/19 04:00 81 01/12/19 04:00 40 01/12/19 02:46 90 30 40 01/12/19 01:04 84 29 40 01/12/19 00:00 Mechanical Ventilator 01/12/19 00:00 40 01/12/19 00:00 83 01/12/19 00:00 97.8 83 20 114/61 (78) 100 01/11/19 23:10 87 27 40 01/11/19 21:15 88 25 40 01/11/19 20:00 Mechanical Ventilator 01/11/19 20:00 40 01/11/19 20:00 97.9 80 20 108/60 (76) 100 01/11/19 20:00 86 01/11/19 19:24 85 25 40 01/11/19 17:20 84 24 40 01/11/19 16:00 Mechanical Ventilator 01/11/19 16:00 98.2 83 20 117/74 (88) 100 01/11/19 16:00 40 01/11/19 15:20 77 01/11/19 14:58 82 27 40 01/11/19 13:11 84 26 40 01/11/19 12:00 98.6 94 20 160/72 (101) 100 01/11/19 12:00 Mechanical Ventilator 01/11/19 12:00 40 01/11/19 11:52 77 01/11/19 11:25 76 22 40 Intake and Output 01/11/19 01/12/19 19:00 07:00 Intake Total 690 ml 540 ml Output Total 6000 ml Balance -5310 ml 540 ml Free Water 150 ml Tube Feeding 540 ml 540 ml Hemodialysis UF 6000 ml # Bowel Movements 5 Height (Feet): 5 Height (Inches): 4.00 Weight (Pounds): 226 General Appearance: WD/WN, no apparent distress, alert Cardiovascular: normal rate Respiratory/Chest: normal breath sounds, no respiratory distress, other - Tracheostomy dependent Abdominal Exam: normal bowel sounds, non tender, soft, GT site - Erythema improved, other Extremities: non-tender Objective Scrotal swelling Right upper extremity swelling Kelvin Briggs GLASS FURNACE OPERATOR January 12, 2019 10:27
--- NOTE | 2019-01-12 10:31 | Cardiac Electrophysiology PN ---
Assessment/Plan Assessment/Plan 1. Troponin leak due to renal failure. No CP or SOB. Nl EF 2. S/P CABG. No CP on Coreg, aspirin and Lipitor 3. NSVT in setting of old HI and CABG. EF 55%. Continue Coreg 4. CHF and right pleural effusion. On hemodialysis. S/P Thoracentesis 5. S/P Right sided [employer] DDD pacemaker with Nl Fx. 6. End-stage renal disease, on hemodialysis per Dr. Stevens 7. Multilevel AOD LE's with non-healing Right foot ulcer. Had abdominal angiogram per Dr Salmeron Antibiotic per Dr. Landis. FU by Dr. Huizar S/P peripheral intervention by Dr. Salmeron 12/22/18 Right foot on Wound-Vac 8. History of liver transplant on Prograf 9. Respiratory failure, S/P tracheostomy. 10. Pleural effusion. s/p 2300 cc thoracentesis 01/01/19 11. Dysphagia, S/P PEG DW account executive key accounts pending Subjective Subjective Ne events. Alert in NAD. Had 3 liters HD yesterday. Placement pending insurance Objective Last 24 Hour Vital Signs Date Time Temp Pulse Resp B/P (MAP) Pulse Ox O2 Delivery O2 Flow Rate FiO2 01/12/19 08:45 81 26 40 01/12/19 08:00 Mechanical Ventilator 01/12/19 08:00 97.3 79 26 100 01/12/19 08:00 40 01/12/19 07:10 73 25 40 01/12/19 05:28 69 26 40 01/12/19 04:00 97.6 85 20 107/92 (97) 100 01/12/19 04:00 Mechanical Ventilator 01/12/19 04:00 81 01/12/19 04:00 40 01/12/19 02:46 90 30 40 01/12/19 01:04 84 29 40 01/12/19 00:00 Mechanical Ventilator 01/12/19 00:00 40 01/12/19 00:00 83 01/12/19 00:00 97.8 83 20 114/61 (78) 100 01/11/19 23:10 87 27 40 01/11/19 21:15 88 25 40 01/11/19 20:00 Mechanical Ventilator 01/11/19 20:00 40 01/11/19 20:00 97.9 80 20 108/60 (76) 100 01/11/19 20:00 86 01/11/19 19:24 85 25 40 01/11/19 17:20 84 24 40 01/11/19 16:00 Mechanical Ventilator 01/11/19 16:00 98.2 83 20 117/74 (88) 100 01/11/19 16:00 40 01/11/19 15:20 77 01/11/19 14:58 82 27 40 01/11/19 13:11 84 26 40 01/11/19 12:00 98.6 94 20 160/72 (101) 100 01/11/19 12:00 Mechanical Ventilator 01/11/19 12:00 40 01/11/19 11:52 77 01/11/19 11:25 76 22 40 Intake and Output 01/11/19 01/12/19 19:00 07:00 Intake Total 690 ml 540 ml Output Total 6000 ml Balance -5310 ml 540 ml Free Water 150 ml Tube Feeding 540 ml 540 ml Hemodialysis UF 6000 ml # Bowel Movements 5 Objective HEAD AND NECK: No JVD. Tracheostomy intact LUNGS: Clear CARDIOVASCULAR: Irregular S1 and S2 with no gallop. Sternotomy is intact Pacemaker in the right subclavian ABDOMEN: Soft. PEG in place EXTREMITIES: 1+ pitting edema. Right heel in dressing and connected to WoundVac Shivam Sharpe MD January 12, 2019 10:31
--- NOTE | 2019-01-12 11:19 | General Progress Note ---
Assessment/Plan Status: unchanged Assessment/Plan: #Right heel diabetic foot ulcer without osteomyelitis #PAD #Right IJ DVT -seen by Podiatry and ID -s/p Vanco x 2 weeks during HD -continue Eliquis -Vascular Surgery and Hematology following #Acute Resp hypercapnic failure s/p tracheostomy #Angioedema #Large right pleural effusion # R side trapped lung -continue trach care -Remains vent-dependant, breathing trials ongoing -Right thoracentesis 01/01/19 with 2.3 lt removed. Post procedure CXR with R trapped lung. -continue weaning trials (was off vent for 8 hours over the weekend) #End-stage renal disease, on dialysis M-W- #RUE edema #Anasarca, ascites, scrotal edema, pleural effusion due to hypoalbuminemia -HD with UF per Nephrology -s/p PRBC transfusion during HD #Coronary artery disease -continue ASA, Coreg, atorvastatin -cardiology following #Type 2 DM -ISS #Acute metabolic encephalopathy -continue supportive care -Neurology following #history of chronic HCV infection #history of liver transplant -continue Prograf -GI following #Abdominal distension and ascites s/p therapeutic paracentesis -no nausea, vomiting or tenderness -continue supportive care -GI following -s/p paracentesis 12/31/18 4.1 lt #Dysphagia S/p PEG with PEG site cellulitis -s/p antibiotics per ID and GI -continue local wound care -tolerating tube feeds # FULL CODE Subjective Date patient seen: January 12, 2019 Time patient seen: 10:22 ROS Limited/Unobtainable: Yes Cardiovascular: Denies: chest pain Gastrointestinal/Abdominal: Denies: abdomen distended Allergies: Coded Allergies: CEPHALEXIN (Unverified Allergy, Unknown, 02/24/14) SULFAMETHOXAZOLE (Unverified Allergy, Unknown, 02/24/14) TRIMETHOPRIM (Unverified Allergy, Unknown, 02/24/14) Subjective Medicine follow up for acute resp failure, PAD, right heel infected DFU, ESRD, anasarca secondary to hypoalbuminemia, right IJ DVT. S/p 4 liter paracentesis and 2 liter thoracentesis No new complaints. Objective Last 24 Hour Vital Signs Date Time Temp Pulse Resp B/P (MAP) Pulse Ox O2 Delivery O2 Flow Rate FiO2 01/12/19 08:45 81 26 40 01/12/19 08:00 Mechanical Ventilator 01/12/19 08:00 97.3 79 26 100 01/12/19 08:00 40 01/12/19 07:43 82 01/12/19 07:10 73 25 40 01/12/19 05:28 69 26 40 01/12/19 04:00 97.6 85 20 107/92 (97) 100 01/12/19 04:00 Mechanical Ventilator 01/12/19 04:00 81 01/12/19 04:00 40 01/12/19 02:46 90 30 40 01/12/19 01:04 84 29 40 01/12/19 00:00 Mechanical Ventilator 01/12/19 00:00 40 01/12/19 00:00 83 01/12/19 00:00 97.8 83 20 114/61 (78) 100 01/11/19 23:10 87 27 40 01/11/19 21:15 88 25 40 01/11/19 20:00 Mechanical Ventilator 01/11/19 20:00 40 01/11/19 20:00 97.9 80 20 108/60 (76) 100 01/11/19 20:00 86 01/11/19 19:24 85 25 40 01/11/19 17:20 84 24 40 01/11/19 16:00 Mechanical Ventilator 01/11/19 16:00 98.2 83 20 117/74 (88) 100 01/11/19 16:00 40 01/11/19 15:20 77 01/11/19 14:58 82 27 40 01/11/19 13:11 84 26 40 01/11/19 12:00 98.6 94 20 160/72 (101) 100 01/11/19 12:00 Mechanical Ventilator 01/11/19 12:00 40 01/11/19 11:52 77 01/11/19 11:25 76 22 40 Intake and Output 01/11/19 01/12/19 19:00 07:00 Intake Total 690 ml 540 ml Output Total 6000 ml Balance -5310 ml 540 ml Free Water 150 ml Tube Feeding 540 ml 540 ml Hemodialysis UF 6000 ml # Bowel Movements 5 Height (Feet): 5 Height (Inches): 4.00 Weight (Pounds): 226 General Appearance: alert Neck: supple Cardiovascular: normal rate, regular rhythm Respiratory/Chest: lungs clear, normal breath sounds Abdomen: non tender, soft Molazadeh-Yazdi,Dennis MD January 12, 2019 11:18
[2019-01-12 12:00] VITALS: BP 146/63
--- NOTE | 2019-01-12 13:17 | Hematology/Onc Progress Note ---
Assessment/Plan Assessment/Plan Assessment and Recs: # Anemia of chronic disease due to underlying chronic medical issues --> ferritin is 633, tibc is low --> No evidence of hemolysis is noted, peripheral smear has been reviewed. --> Epogen can be consider if hgb downtrends --> Medications have been reviewed --> evaluate with Gi team prn --> transfuse if hgb is < 7 (will trend CBC daily) --> hgb trend 11.2-->10.9-->10.8-->10.7-->10.2-->9.7-->9.7-->8.5-->9-->9.2-->8.4 -->7.7-->8.8-->9.1 --> s/p transfusion on 01/06 # Failure to thrive is likely related to poor overall status, poor functional status --> with multiple decub ulcerations that are noted, seen by id/surgery --> s/p trach as well --> cea is wnl # Acute non-occlusive dvt, right extremity ultrasound (acute non-occlusive DVT in internal jugular) --> currently is on eliquis 2.5mg po bid --> do not recommend a SVC filter --> given prior bleeding risk, hold off on heparin gtt --> vasc surgeon is aware, seek recs # Coagulopathy likely secondary to decreased Vitk dependent cofactors (high INR , PT) --> monitor closely for any evidence of bleeding. Currently is on eliquis --> VIT K on prn basis sq can be administered --> recently has improved inr 1.2-->1.1-->1.2 # Acute respiratory failure is now s/p trach to vent --> as per surgery recs # Ground glass opacities present on imaging of lung --> with pleural effusions, s/p drainage at this time --> no evidence for malignancy is noted --> as per pulm/id # Pleural effusion --> s/p thoracentesis, s/p paracentesis 12/31 --> no evidence of malignancy # Hyperkalemia --> kayxelate on prn basis per renal --> monitor K # Renal failure --> per renal recs, appreciated --> getting hd as per schedule # Altered level of consciousness --> currently as per baseline --> neuro eval prn # PAD off heparin gtt and now on eliquis --> per vasc and cards --> 12/22 s/p right leg angiogram with intervention --> on eliquis, continue # Gt tube cellulitis, on topical abx as per id around site The timing of this note does not necessarily reflect the time of the patient was seen. Greatly appreciate consultation! Subjective Constitutional: Denies: no symptoms, chills, fever, malaise, weakness, other HEENT: Denies: no symptoms, eye pain, blurred vision, tearing, double vision, ear pain, ear discharge, nose pain, nose congestion, throat pain, throat swelling, mouth pain, mouth swelling, other Cardiovascular: Denies: no symptoms, chest pain, edema, irregular heart rate, lightheadedness, palpitations, syncope, other 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: Denies: no symptoms, anxiety, depressed, emotional problems, headache, numbness, paresthesia, pre-existing deficit, seizure, tingling, tremors, weakness, other Endocrine: Denies: no symptoms, excessive sweating, flushing, intolerance to cold, intolerance to heat, increased hunger, increased thirst, increased urine, unexplained weight gain, unexplained weight loss, other Allergies: Coded Allergies: CEPHALEXIN (Unverified Allergy, Unknown, 02/24/14) SULFAMETHOXAZOLE (Unverified Allergy, Unknown, 02/24/14) TRIMETHOPRIM (Unverified Allergy, Unknown, 02/24/14) Subjective 11/30: comfortable, on abx, no complaints, on t-piece 12/01: to have hd done potentially tomorrow, is more alert/awake 12/02: no major bleeding, hgb remains approx 11, no changes 12/03: no events, breathing mildly better, hgb is improved 12/04: on vent/trach, no major changes, sr ekg 12/10: small amount of secretions, on trach/vent, no issues otherwise 12/11: no major issues, no complaints, labs reviewed, no sig changes 12/13: no events to report, no fevers or chills, awaiting placement 12/14: no changes, no major events to report, no fevers or chills 12/15: pending placement, getting gt feeds and hd as per renal 12/16: labs have been reviewed, cbc noted, no changes 12/17: no events, no fevers, no cp, hgb remains stable 12/18: restarted on heparin gtt, seen by latia, clarisa 12/20: continues to be on heparin gtt, no bleeding reported, no f/c 12/21: hd for today, no fevers or chils, off hep gtt on eliquis 12/22: to get hd tomorrow, today is s/p right leg angiogram with intervention 12/23: hgb remins stable, no fevers or chills reported 12/24: no events, no bleeding, vitals reviewed, cbc stable 12/25: no events, no bleeding, on vent, hgb 9 12/27: no changes, no f/c, no night swearts, seen with other providers 12/28: right extremity ultrasound (acute non-occlusive DVT in internal jugular, on eliquis 12/29: no events, no night sweats, seen by gi, no bleeding 12/30: cbc has been reviewed, no f/c, no night sweats reported 12/31: no events, eliquis is on hold cbc has been reviewed, bp elevated 01/01: no fevers or chills, cbc reviewed, hgb 9.3, getting HD 01/02: no events noted, getting norco for pain, hgb stable 01/04: not events to report, no bleeding, refusing ivl at this time, cbc reviewed 01/05: no fevers or chills noted, s/p trach/vent, no f/c, no chills noted 01/06: no events, to get 1 unit prbc today, renal seen, on abx 01/07: hd for tomorrow, seen by renal, no events, cbc reviewed 01/08: getting Hd today, seen by renal, no major events, in sr 01/10: no events to report, to get hd tomorrow, hgb stable 01/11: on vent/trach, gtube, tolerating treatment well, hd today 01/12: remains nonverbal, stable, on vent/trach, no fc Objective Objective Current Medications Medications (Trade) Dose Ordered Sig/Aleks Route PRN Reason Start Time Stop Time Status Last Admin Dose Admin Acetaminophen (Tylenol) 650 mg Q6H PRN GT Mild Pain/Temp > 100.5 12/21/18 16:00 01/20/19 15:59 01/10/19 05:10 Acetaminophen/ Hydrocodone Bitart (Monument 5/325) 1 tab Q4H PRN ORAL Moderate Pain (Pain Scale 4-6) 01/05/19 14:30 01/12/19 14:29 01/12/19 04:57 Apixaban (Eliquis) 2.5 mg BID GT 01/01/19 21:00 01/31/19 20:59 01/12/19 09:48 Clotrimazole (Lotrimin) 1 applic DAILY TOPIC 01/08/19 18:00 02/07/19 17:59 01/12/19 09:49 Collagenase (Santyl) 1 applic DAILY TOPIC 12/29/18 09:00 01/28/19 08:59 01/12/19 09:48 Dextrose (Dextrose 50%) 25 ml Q30M PRN IV Hypoglycemia 12/31/18 23:00 01/30/19 22:59 Dextrose (Dextrose 50%) 50 ml Q30M PRN IV Hypoglycemia 12/31/18 23:00 01/30/19 22:59 Epoetin Vini (Epoetin Vini(ESRD on dialysis)) 10,000 unit FRI-FRI-FRI SUBQ 01/06/19 21:00 02/05/19 20:59 01/11/19 20:40 Escitalopram Oxalate (Lexapro) 20 mg DAILY GT 01/05/19 09:00 02/04/19 08:59 01/12/19 09:48 Hydralazine HCl (Apresoline) 25 mg Q4H PRN GT bp over 160 syst 01/06/19 15:00 02/05/19 14:59 Insulin Aspart (NovoLOG) EVERY 6 HOURS SUBQ 01/01/19 00:00 01/31/19 00:00 01/12/19 12:24 Loperamide HCl (Imodium) 2 mg Q6H PRN GT Diarrhea 01/07/19 11:00 02/06/19 10:59 01/09/19 20:09 Metoclopramide HCl (Reglan) 5 mg Q6H PRN IVP Nausea & Vomiting 12/30/18 17:30 01/29/19 17:29 01/05/19 20:45 Mirtazapine (Remeron) 15 mg BEDTIME GT 12/21/18 21:00 01/20/19 20:59 01/11/19 20:40 Tacrolimus (Prograf) 2 mg MoWeFr@0000,1200 ORAL 12/28/18 00:00 01/27/19 00:00 01/11/19 11:58 Tacrolimus (Prograf) 2 mg SuTuThSa@0900,2100 ORAL 12/26/18 21:00 01/25/19 20:59 01/12/19 09:53 Last 24 Hour Vital Signs Date Time Temp Pulse Resp B/P (MAP) Pulse Ox O2 Delivery O2 Flow Rate FiO2 01/12/19 12:00 96.8 75 25 146/63 (90) 99 01/12/19 12:00 Mechanical Ventilator 01/12/19 12:00 40 01/12/19 11:37 79 01/12/19 10:48 75 22 40 01/12/19 08:45 81 26 40 01/12/19 08:00 Mechanical Ventilator 01/12/19 08:00 97.3 79 26 100 01/12/19 08:00 40 01/12/19 07:43 82 01/12/19 07:10 73 25 40 01/12/19 05:28 69 26 40 01/12/19 04:00 97.6 85 20 107/92 (97) 100 01/12/19 04:00 Mechanical Ventilator 01/12/19 04:00 81 01/12/19 04:00 40 01/12/19 02:46 90 30 40 01/12/19 01:04 84 29 40 01/12/19 00:00 Mechanical Ventilator 01/12/19 00:00 40 01/12/19 00:00 83 01/12/19 00:00 97.8 83 20 114/61 (78) 100 01/11/19 23:10 87 27 40 01/11/19 21:15 88 25 40 01/11/19 20:00 Mechanical Ventilator 01/11/19 20:00 40 01/11/19 20:00 97.9 80 20 108/60 (76) 100 01/11/19 20:00 86 01/11/19 19:24 85 25 40 5/27/19 17:20 84 24 40 01/11/19 16:00 Mechanical Ventilator 01/11/19 16:00 98.2 83 20 117/74 (88) 100 01/11/19 16:00 40 01/11/19 15:20 77 01/11/19 14:58 82 27 40 01/11/19 13:11 84 26 40 01/11/19 12:00 98.6 94 20 160/72 (101) 100 01/11/19 12:00 Mechanical Ventilator 01/11/19 12:00 40 01/11/19 11:52 77 01/11/19 11:25 76 22 40 01/11/19 09:00 67 27 40 01/11/19 08:00 98.1 69 26 104/54 (71) 100 01/11/19 08:00 40 01/11/19 08:00 Mechanical Ventilator 01/11/19 07:44 71 01/11/19 07:08 78 25 40 01/11/19 05:05 79 24 40 01/11/19 04:00 40 01/11/19 04:00 98.3 70 22 123/53 (76) 100 01/11/19 04:00 72 01/11/19 04:00 Mechanical Ventilator 01/11/19 03:14 72 23 40 01/11/19 01:07 70 23 40 01/11/19 00:00 98.2 85 22 137/85 (102) 100 01/11/19 00:00 79 01/11/19 00:00 Mechanical Ventilator 01/11/19 00:00 40 01/10/19 22:48 76 22 40 01/10/19 21:12 78 27 40 01/10/19 20:00 40 01/10/19 20:00 80 01/10/19 20:00 Mechanical Ventilator 01/10/19 20:00 98.0 78 22 116/55 (75) 100 01/10/19 19:25 72 27 40 01/10/19 16:42 75 27 40 01/10/19 16:00 40 01/10/19 16:00 Mechanical Ventilator 01/10/19 16:00 97.6 75 28 155/87 (109) 99 01/10/19 16:00 74 01/10/19 15:06 81 26 40 01/10/19 13:18 98 Intake and Output 01/11/19 01/12/19 19:00 07:00 Intake Total 690 ml 540 ml Output Total 6000 ml Balance -5310 ml 540 ml Free Water 150 ml Tube Feeding 540 ml 540 ml Hemodialysis UF 6000 ml # Bowel Movements 5 Height (Feet): 5 Height (Inches): 4.00 Weight (Pounds): 226 Objective PE General Appearance: mild distress, moderate distress Lines, tubes and drains: peripheral HEENT: EOMI, thrush, tonsils swollen ++trach Neck: normal inspection Respiratory/Chest: decreased breath sounds, accessory muscle use Cardiovascular/Chest: tachycardia Abdomen: soft, no organomegaly, no mass, ++ peg Extremities: other Skin Exam: warm/dry, rash Neurologic: alert, responsive Zacarias Khoury MD January 12, 2019 13:17
--- NOTE | 2019-01-12 14:52 | Nephrology Progress Note ---
Assessment/Plan Problem List: (1) ESRD (end stage renal disease) on dialysis (2) Foot ulcer (3) CHF (congestive heart failure) Assessment: Ej Fx 20 % (4) Pacemaker (5) Acute respiratory failure Assessment: with Co2 retention (6) G-tube site cellulitis Assessment ESRD with high K and SOB on admit Foot ulcer, likely infected High Troponin likely NSTMI Pacer , Pleural effusion s/p CABGS s/p Liver transplant Plan dialysis next 01/13 labs before HD noted BP low- improved on midodrine per consultants, GI GT site infection, topical antibiotic Neuro note appreciated placement in process vascular esteban regarding heel ulcer per Dr Mcgill pain med change to dilaudid GT Now has tracheostomy and PEG Adjust BP meds add nitro paste TID Antibiotics by ID per cardio and ID Podiatry and Vascular surgical fu ? DC planning? Subjective ROS Limited/Unobtainable: Yes Objective Objective Last 24 Hour Vital Signs Date Time Temp Pulse Resp B/P (MAP) Pulse Ox O2 Delivery O2 Flow Rate FiO2 01/12/19 12:30 81 23 40 01/12/19 12:00 96.8 75 25 146/63 (90) 99 01/12/19 12:00 Mechanical Ventilator 01/12/19 12:00 40 01/12/19 11:37 79 01/12/19 10:48 75 22 40 01/12/19 08:45 81 26 40 01/12/19 08:00 Mechanical Ventilator 01/12/19 08:00 97.3 79 26 100 01/12/19 08:00 40 01/12/19 07:43 82 01/12/19 07:10 73 25 40 01/12/19 05:28 69 26 40 01/12/19 04:00 97.6 85 20 107/92 (97) 100 01/12/19 04:00 Mechanical Ventilator 01/12/19 04:00 81 01/12/19 04:00 40 01/12/19 02:46 90 30 40 01/12/19 01:04 84 29 40 01/12/19 00:00 Mechanical Ventilator 01/12/19 00:00 40 01/12/19 00:00 83 01/12/19 00:00 97.8 83 20 114/61 (78) 100 01/11/19 23:10 87 27 40 01/11/19 21:15 88 25 40 01/11/19 20:00 Mechanical Ventilator 01/11/19 20:00 40 01/11/19 20:00 97.9 80 20 108/60 (76) 100 01/11/19 20:00 86 01/11/19 19:24 85 25 40 01/11/19 17:20 84 24 40 01/11/19 16:00 Mechanical Ventilator 01/11/19 16:00 98.2 83 20 117/74 (88) 100 01/11/19 16:00 40 01/11/19 15:20 77 01/11/19 14:58 82 27 40 Intake and Output 01/11/19 01/12/19 19:00 07:00 Intake Total 690 ml 540 ml Output Total 6000 ml Balance -5310 ml 540 ml Free Water 150 ml Tube Feeding 540 ml 540 ml Hemodialysis UF 6000 ml # Bowel Movements 5 Height (Feet): 5 Height (Inches): 4.00 Weight (Pounds): 226 General Appearance: no apparent distress EENT: other - trach Respiratory/Chest: decreased breath sounds Abdomen: other - PEG Objective no other change Nakul Stevens MD January 12, 2019 14:51
[2019-01-12 16:00] VITALS: BP 102/69
--- NOTE | 2019-01-12 17:23 | Neurology Progress Note ---
Interim History Interim History Interim History Mr. Restrepo feels well. He is celebrating his Birthday today. His mood is better. He is in good spirits. The right heel is less painful - and is healing well. The right upper extremity is less swollen and less painful. He has been able to sleep better. He is breathing well but still artificially ventilated. He feels that his strength is stable. The mind is clearer. He is eager to eat - may be some Birthday Cake! He denies any new neurological symptoms. Review of Systems Neuro Review of Systems Benign. Objective Physical Exam Last Vital Signs Date Time Temp Pulse Resp B/P (MAP) Pulse Ox O2 Delivery O2 Flow Rate FiO2 01/12/19 16:44 75 26 40 01/12/19 16:00 Mechanical Ventilator 01/12/19 16:00 98.2 102/69 (80) 100 Neurologic Exam Objective PHYSICAL EXAMINATION: GENERAL: He is a well-developed and well-nourished, pleasant gentleman, lying in bed, connected to a ventilator via a tracheostomy. HEAD: Normocephalic and atraumatic. EENT: Examination benign. NECK: No neck rigidity was observed. He did have a tracheostomy. NEUROLOGICAL EXAMINATION: MENTAL STATUS EXAMINATION: He was awake and alert. He was oriented to person, place and time. He was able to recall 3/3 words immediately and was able to remember them in 1 and 3 minutes. He was able to remember presidents Trump through Mak Keny. His mathematical skills were fair. His visuo-spatial function was preserved. SPEECH: Could not be tested, but he was able to mouth words relatively well. LANGUAGE: He was able to comprehend and express himself relatively well. CRANIAL NERVES EXAMINATION: II: The visual mckeon were intact to confrontation testing. III, IV & : The external ocular movements were full and the pupils 3 mm in diameter, equal, round, regular, and reactive sluggishly to light. V: He had normal facial sensations, and the temporales, masseters, and pterygoids functioned normally. VII: He had normal facial expressions and no facial asymmetry. VIII: Hearing was decreased bilaterally with worse hearing on the left side compared to the right. IX: The palate moved symmetrically on phonation. X: Could not be tested. XI: The sternocleidomastoids and trapezii functioned normally. XII: The tongue was in the midline without any fasciculations or atrophy. MOTOR SYSTEM: The tone was normal in all four extremities. Examination of muscle mass revealed generalized muscle wasting. Examination of power revealed G 5/5 power except for G 4+/5 power in the iliopsoas muscles bilaterally, and G 4/5 in the right ankle and toes. Power in the right upper extremity was limited by pain. Power in the right foot was also limited by pain. SENSORY EXAMINATION: He had intact sensations to light touch. Other sensory modalities could not be tested adequately. REFLEXES: 1+ and bilaterally symmetrical at the biceps, triceps, brachioradialis , and knees, 0 at both ankles. The plantar responses were flexor bilaterally. COORDINATION: He performed well on [id number] testing. STANCE & GAIT: Were deferred. Impression/Recommendations Diagnostic Impression 1. Mr. Gregg Restrepo is a 69-year-old, right-handed, gentleman with past history of multiple medical problems including hypertension, diabetes mellitus, end-stage renal disease for which he is hemodialysis dependent, prior episodes of sepsis, and prior episodes of encephalopathy, who was admitted to [facility] on October 31, 2018. Following that, he has had a stormy hospital course including pneumonia and sepsis, right foot infection, respiratory failure for which he has needed tracheostomy and in addition he has exhibited an alteration in his mental state with some waxing and waning of his mental state. 2. He feels well. He is celebrating his Birthday today. His mood is better. He is in good spirits. The right heel is less painful - and is healing well. The right upper extremity is less swollen and less painful. He has been able to sleep better. He is breathing well but still artificially ventilated. He feels that his strength is stable. The mind is clearer. He is eager to eat - may be some Birthday Cake! He denies any new neurological symptoms. 3. On neurological examination, at this time, he is fully oriented, his recent memory is normal. He has minimally impaired higher cognitive function. He is able to comprehend and express himself well. He does have mild G 4+/5 weakness in the iliopsoas muscles bilaterally. Power in the right upper extremity was limited by pain. Power in the right foot was also limited by pain. He had globally diminished deep tendon reflexes with loss of ankle jerks, but no definite focal or lateralizing neurological findings. 4. His latest laboratory data on my initial evaluation revealed that he was anemic with a hemoglobin of 10.8 G. His last blood gas performed on 11/14/2018 revealed that he had a pCO2 elevated at 56.4 with a normal pO2 of 88.3 and normal pH of 7.37. His latest chemistry panel revealed that he was mildly hyponatremic with a sodium of 130, and had a chloride of 90. The BUN was elevated at 75, creatinine elevated at 7.4, glucose elevated at 156, Hemoglobin A1c elevated at 6.9%, Alkaline phosphatase elevated at 131, and ProBNP greater than 35,000. His last B12 level on 11/07/2018 was 723. His last folate on was 18.6. His last TSH on 12/06/2018 was 4.82, which is minimally elevated. 5. The CT scan of the brain performed on 11/10/2018 was benign for acute intracranial pathology. 6. The EEG done on 12/08/18 revealed left temporal dysfunction. 7. The patient's history and neurological examination are most consistent with mild multifactorial encephalopathy, which apparently waxes and wanes, but no definite focal neurological dysfunction. His encephalopathy is stable. 8. He tells me that he had a brain bleed many years ago. I did review his imaging done at [facility] a few years ago and he had closed head injuries with subarachnoid and subdural blood in the past. 9. His mood has improved. 10. There has never been a doubt regarding his ability to make decisions regarding his medical care. 11. He is eager to eat again. Recommendations 1. Continue present management. 2. Continue to correct the patient's toxic metabolic imbalances. 3. Mobilize with PT/OT. 4. Consider getting swallowing evaluation so that he can be fed for enjoyment. 5. Observe. Pantera Cool M.D., M.S.P.H. Pantera Cool MD January 12, 2019 17:23
--- NOTE | 2019-01-12 18:22 | Infectious Diseases Prog Note ---
Assessment/Plan Problems: (1) Diarrhea Assessment & Plan: with no infectious etiology so far , and negative stool for C diff toxin , and no pathogens on stool culture , avoid laxatives, monitor clinically , encourage hydration (2) Foot ulcer Assessment & Plan: with MRSA grew out of it in the past, S/P vancomycin treatment with HD for two weeks, had vascular eval with revascularization to the right leg , S/P ulcer resection by sand temperer . deep ulcer culture grew MRSA and E.coli with diphtheroids , possible colonization , with no evidence of active infection as per discussion with podiatry , no need to be started on antibiotics for now , will continue to monitor clinically and make recommendations as necessary . bone scan ruled out osteomyelitis of the heel before, couldn't do an MRI since on the vent . continue local wound care as per sand temperer . (3) Thrush, oral Assessment & Plan: continue local nystatin as needed , S/P micafungin for three weeks empirically (4) HCV antibody positive Assessment & Plan: no evidence of active infection, with undetectable viral load , suspect due to previous infection , cleared, S/P liver transplant . (5) DM (diabetes mellitus) Assessment & Plan: recommend tight glycemic control to keep blood glucose between 100-140 (6) CHF (congestive heart failure) Assessment & Plan: on HD , renal is following, monitor daily weight (7) Severe tongue swelling Assessment & Plan: improving , s/p tracheostomy to protect his airway since respiratory status worsened . now improving, pulmonary is following (8) Pleural effusion Assessment & Plan: recurrent on the right, with lung collapse , S/P thoracentesis X 3 now with removal of 2.3 liters of clear fluids on 12/31/18 . await fluids culture and gram stain, with PH and Glucose level . PREVIOUS culture were negative with negative cytology. pulmonary is following (9) Ascites Assessment & Plan: S/P paracentesis with removal of 4.1 liters of fluids, culture so far is negative Assessment/Plan will continue to monitor patient on daily basis and make recommendations as necessary since he is high risk for recurrent infection Subjective Constitutional: Reports: no symptoms HEENT: Reports: no symptoms Respiratory: Reports: no symptoms Breasts: Reports: no symptoms Cardiovascular: Reports: no symptoms Gastrointestinal/Abdominal: Reports: no symptoms Genitourinary: Reports: no symptoms Neurologic: Reports: no symptoms Psychiatric: Reports: no symptoms Skin: Reports: no symptoms Endocrine: Reports: no symptoms Hematologic: Reports: no symptoms Musculoskeletal: Reports: no symptoms Allergies: Coded Allergies: CEPHALEXIN (Unverified Allergy, Unknown, 02/24/14) SULFAMETHOXAZOLE (Unverified Allergy, Unknown, 02/24/14) TRIMETHOPRIM (Unverified Allergy, Unknown, 02/24/14) Subjective he was comfortable, lying in bed, denied any fever or chills, no significant secretions, no SOB . has heel pain at the surgery site with wound VAC in place , but no draining coming out . no diarrhea . Objective Vital Signs Last 24 Hour Vital Signs Date Time Temp Pulse Resp B/P (MAP) Pulse Ox O2 Delivery O2 Flow Rate FiO2 01/12/19 16:44 75 26 40 01/12/19 16:00 40 01/12/19 16:00 Mechanical Ventilator 01/12/19 16:00 98.2 76 21 102/69 (80) 100 01/12/19 15:18 78 01/12/19 15:02 83 24 40 01/12/19 12:30 81 23 40 01/12/19 12:00 96.8 75 25 146/63 (90) 99 01/12/19 12:00 Mechanical Ventilator 01/12/19 12:00 40 01/12/19 11:37 79 01/12/19 10:48 75 22 40 01/12/19 08:45 81 26 40 01/12/19 08:00 Mechanical Ventilator 01/12/19 08:00 97.3 79 26 100 01/12/19 08:00 40 01/12/19 07:43 82 01/12/19 07:10 73 25 40 01/12/19 05:28 69 26 40 01/12/19 04:00 97.6 85 20 107/92 (97) 100 01/12/19 04:00 Mechanical Ventilator 01/12/19 04:00 81 01/12/19 04:00 40 01/12/19 02:46 90 30 40 01/12/19 01:04 84 29 40 01/12/19 00:00 Mechanical Ventilator 01/12/19 00:00 40 01/12/19 00:00 83 01/12/19 00:00 97.8 83 20 114/61 (78) 100 01/11/19 23:10 87 27 40 01/11/19 21:15 88 25 40 01/11/19 20:00 Mechanical Ventilator 01/11/19 20:00 40 01/11/19 20:00 97.9 80 20 108/60 (76) 100 01/11/19 20:00 86 01/11/19 19:24 85 25 40 Height (Feet): 5 Height (Inches): 4.00 Weight (Pounds): 226 General Appearance: WD/WN, no acute distress HEENT: normocephalic, atraumatic, anicteric, mucous membranes moist, PERRL, EOMI, pharynx normal, supple, no JVD Respiratory/Chest: chest wall non-tender, lungs clear, normal breath sounds, no respiratory distress, no accessory muscle use Cardiovascular: normal peripheral pulses, normal rate, regular rhythm, no gallop/murmur, no JVD Abdomen: normal bowel sounds, soft, non tender, no organomegaly, non distended , no mass, no scars Genitourinary: normal external genitalia Extremities: no cyanosis, no clubbing Skin: no rash, no lesions, no ulcers 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: 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, no motor/sensory deficits, alert, responsive, normal mood/affect Lymphatic: no neck adenopathy, no groin adenopathy Musculoskeletal: normal muscle bulk, no effusion Current Medications Medications (Trade) Dose Ordered Sig/Aleks Route PRN Reason Start Time Stop Time Status Last Admin Dose Admin Acetaminophen (Tylenol) 650 mg Q6H PRN GT Mild Pain/Temp > 100.5 12/21/18 16:00 01/20/19 15:59 01/10/19 05:10 Apixaban (Eliquis) 2.5 mg BID GT 01/01/19 21:00 01/31/19 20:59 01/12/19 18:05 Clotrimazole (Lotrimin) 1 applic DAILY TOPIC 01/08/19 18:00 02/07/19 17:59 01/12/19 09:49 Collagenase (Santyl) 1 applic DAILY TOPIC 12/29/18 09:00 01/28/19 08:59 01/12/19 09:48 Dextrose (Dextrose 50%) 25 ml Q30M PRN IV Hypoglycemia 12/31/18 23:00 01/30/19 22:59 Dextrose (Dextrose 50%) 50 ml Q30M PRN IV Hypoglycemia 12/31/18 23:00 01/30/19 22:59 Epoetin Vini (Epoetin Vini(ESRD on dialysis)) 10,000 unit FRI-FRI-FRI SUBQ 01/06/19 21:00 02/05/19 20:59 01/11/19 20:40 Escitalopram Oxalate (Lexapro) 20 mg DAILY GT 01/05/19 09:00 02/04/19 08:59 01/12/19 09:48 Hydralazine HCl (Apresoline) 25 mg Q4H PRN GT bp over 160 syst 01/06/19 15:00 02/05/19 14:59 Insulin Aspart (NovoLOG) EVERY 6 HOURS SUBQ 01/01/19 00:00 01/31/19 00:00 01/12/19 18:07 Loperamide HCl (Imodium) 2 mg Q6H PRN GT Diarrhea 01/07/19 11:00 02/06/19 10:59 01/09/19 20:09 Metoclopramide HCl (Reglan) 5 mg Q6H PRN IVP Nausea & Vomiting 12/30/18 17:30 01/29/19 17:29 01/05/19 20:45 Mirtazapine (Remeron) 15 mg BEDTIME GT 12/21/18 21:00 01/20/19 20:59 01/11/19 20:40 Tacrolimus (Prograf) 2 mg MoWeFr@0000,1200 ORAL 12/28/18 00:00 01/27/19 00:00 01/11/19 11:58 Tacrolimus (Prograf) 2 mg SuTuThSa@0900,2100 ORAL 12/26/18 21:00 01/25/19 20:59 01/12/19 09:53 Francois Landis M.D. January 12, 2019 18:22
[2019-01-12 20:00] VITALS: BP 127/61
[2019-01-12] MEDS: Acetaminophen 650mg/20.3ml GT PRN (20:25)
[2019-01-13] VITALS: BP 128/82
[2019-01-13 04:00] VITALS: BP 130/74
--- NOTE | 2019-01-13 04:45 | Progress Note ---
DATE: 01/12/2019 SUBJECTIVE: The patient is doing well. Sleeping is better. More hopeful. The patient had his . At some point, he became tearful. MENTAL STATUS EXAMINATION: The patient is alert, oriented times . Mood is dysphoric. Affect is constricted, congruent with mood. Thought process is concrete. Thought content, no suicidal or homicidal ideations. Cognition is intact. Insight and judgment is fair. ASSESSMENT: 1. Major depressive disorder. 2. Anxiety disorder. PLAN: 1. We will continue the Celexa. 2. Continue the Remeron. 3. Provide the patient with reality orientation and supportive therapy. Jeffrey Lala M.D. DR: BRITANY JOB#: [id number] CC:
[2019-01-13 05:20] LABS: BASOPHILS % (AUTO) 0.9 % (0.0-2.0); HEMATOCRIT 27.9 % (42.0-52.0); HEMOGLOBIN 8.7 G/DL (14.2-18.0); LYMPHOCYTES % (AUTO) 10.9 % (20.0-45.0); MEAN CORPUSCULAR VOLUME 80 FL (80-99); MONOCYTES % (AUTO) 7.5 % (1.0-10.0); NEUTROPHILS % (AUTO) 80.7 % (45.0-75.0); PLATELET COUNT 191 K/UL (150-450); RED BLOOD COUNT 3.48 M/UL (4.70-6.10); RED CELL DISTRIBUTION WIDTH 16.4 % (11.6-14.8); WHITE BLOOD COUNT 8.8 K/UL (4.8-10.8)
[2019-01-13] MEDS: NovoLOG Insulin Flexpen SUBQ SCH ×3 (05:42→17:36)
[2019-01-13 05:47] LABS: ALANINE AMINOTRANSFERASE 9 U/L (12-78); ALBUMIN 1.9 G/DL (3.4-5.0); ALBUMIN/GLOBULIN RATIO 0.4 (1.0-2.7); ALKALINE PHOSPHATASE 143 U/L (46-116); ANION GAP 12 mmol/L (5-15); ASPARTATE AMINO TRANSFERASE 15 U/L (15-37); BILIRUBIN,TOTAL 0.4 MG/DL (0.2-1.0); BLOOD UREA NITROGEN 77 mg/dL (7-18); CALCIUM 9.1 MG/DL (8.5-10.1); CARBON DIOXIDE 27 MMOL/L (21-32); CHLORIDE 93 MMOL/L (98-107); CREATININE 6.3 MG/DL (0.55-1.30); POTASSIUM 4.2 MMOL/L (3.5-5.1); SODIUM 132 MMOL/L (136-145)
[2019-01-13 06:03] LABS: PHOSPHORUS 4.4 MG/DL (2.5-4.9)
--- NOTE | 2019-01-13 06:43 | General Progress Note ---
Assessment/Plan Problem List: (1) Transplant ICD Codes: Z94.9 - Transplanted organ and tissue status, unspecified SNOMED: 523382100 (2) HTN (hypertension) ICD Codes: I10 - Essential (primary) hypertension SNOMED: 91498665 (3) Pacemaker ICD Codes: Z95.0 - Presence of cardiac pacemaker SNOMED: 358496055 (4) CHF (congestive heart failure) ICD Codes: I50.9 - Heart failure, unspecified SNOMED: 24187506 (5) DM (diabetes mellitus) ICD Codes: E11.9 - Type 2 diabetes mellitus without complications SNOMED: 18497819 (6) Foot ulcer ICD Codes: L97.509 - Non-pressure chronic ulcer of other part of unspecified foot with unspecified severity SNOMED: 56803353 Qualifiers: Qualified Codes: L97.511 - Non-pressure chronic ulcer of other part of right foot limited to breakdown of skin (7) ESRD (end stage renal disease) on dialysis ICD Codes: N18.6 - End stage renal disease; Z99.2 - Dependence on renal dialysis SNOMED: 319162122 Assessment/Plan: History of liver transplant, currently on Prograf History of cholecystectomy status post tracheostomy and PEG Infected G-tube site, fu ID recs C. difficile negative x 2 would care cx >> GRAM NEGATIVE BACILLUS CT AP reviewed, Moderate to large right pleural effusion. Moderate Ascites. s/p Paracentesis yielding 4.1 yield, r/o SBP >> negative for malignant cells Status post right thoracentesis yielding 2.1 L >> negative for malignant cells Continue G-tube feedings GT site care BID/prn topical abx around GT site per ID HD per nephro cont tacrolimus prn transfusions ppi zofran prn Imodium prn, Lomotil for persistent diarrhea follow labs supportive care outpatient Hep C tx, pending RNA PCR ordered tacrolimus levels for tomorrow monitor LFTS Subjective ROS Limited/Unobtainable: Yes Allergies: Coded Allergies: CEPHALEXIN (Unverified Allergy, Unknown, 02/24/14) SULFAMETHOXAZOLE (Unverified Allergy, Unknown, 02/24/14) TRIMETHOPRIM (Unverified Allergy, Unknown, 02/24/14) Subjective he pulled his NGT again Objective Last 24 Hour Vital Signs Date Time Temp Pulse Resp B/P (MAP) Pulse Ox O2 Delivery O2 Flow Rate FiO2 01/13/19 05:02 72 24 40 40 01/13/19 04:00 85 01/13/19 04:00 96.8 82 26 130/74 (92) 100 01/13/19 04:00 40 01/13/19 04:00 Mechanical Ventilator 01/13/19 02:51 78 22 40 40 01/13/19 01:06 72 24 40 40 01/13/19 00:00 Mechanical Ventilator 01/13/19 00:00 96 01/13/19 00:00 97.7 97 22 128/82 (97) 100 01/13/19 00:00 40 01/12/19 23:22 76 22 40 40 01/12/19 20:55 98.2 01/12/19 20:39 78 26 40 40 01/12/19 20:00 83 01/12/19 20:00 40 01/12/19 20:00 98.2 82 24 127/61 (83) 100 01/12/19 20:00 Mechanical Ventilator 01/12/19 19:03 85 29 40 40 01/12/19 16:44 75 26 40 01/12/19 16:00 40 01/12/19 16:00 Mechanical Ventilator 01/12/19 16:00 98.2 76 21 102/69 (80) 100 01/12/19 15:18 78 01/12/19 15:02 83 24 40 01/12/19 12:30 81 23 40 01/12/19 12:00 96.8 75 25 146/63 (90) 99 01/12/19 12:00 Mechanical Ventilator 01/12/19 12:00 40 01/12/19 11:37 79 01/12/19 10:48 75 22 40 01/12/19 08:45 81 26 40 01/12/19 08:00 Mechanical Ventilator 01/12/19 08:00 97.3 79 26 100 01/12/19 08:00 40 01/12/19 07:43 82 01/12/19 07:10 73 25 40 Intake and Output 01/12/19 01/13/19 19:00 07:00 Intake Total 690 ml 330 ml Balance 690 ml 330 ml Free Water 150 ml 60 ml Tube Feeding 540 ml 270 ml # Bowel Movements 5 Laboratory Tests 01/13/19 03:35: White Blood Count 8.8, Red Blood Count 3.48L, Hemoglobin 8.7L, Hematocrit 27.9L , Mean Corpuscular Volume 80, Mean Corpuscular Hemoglobin 25.2L, Mean Corpuscular Hemoglobin Concent 31.3L, Red Cell Distribution Width 16.4H, Platelet Count 191, Mean Platelet Volume 6.7, Neutrophils (%) (Auto) 80.7H, Lymphocytes (%) (Auto) 10.9L, Monocytes (%) (Auto) 7.5, Eosinophils (%) (Auto) 0.0, Basophils (%) (Auto) 0.9, Sodium Level 132L, Potassium Level 4.2, Chloride Level 93L, Carbon Dioxide Level 27, Anion Gap 12, Blood Urea Nitrogen 77H, Creatinine 6.3H, Estimat Glomerular Filtration Rate 8.9, Glucose Level 130H, Calcium Level 9.1, Phosphorus Level 4.4, Magnesium Level 2.1, Total Bilirubin 0.4, Gamma Glutamyl Transpeptidase 42, Aspartate Amino Transf (AST/SGOT) 15, Alanine Aminotransferase (ALT/SGPT) 9L, Alkaline Phosphatase 143H, Total Protein 6.4, Albumin 1.9L, Globulin 4.5, Albumin/Globulin Ratio 0.4L Height (Feet): 5 Height (Inches): 4.00 Weight (Pounds): 218 General Appearance: alert EENT: normal ENT inspection Neck: supple Cardiovascular: regular rhythm Respiratory/Chest: decreased breath sounds Abdomen: normal bowel sounds, non tender, soft Extremities: non-tender Jorge Escalera MD January 13, 2019 06:43
[2019-01-13 08:00] VITALS: BP 128/74
[2019-01-13 12:00] VITALS: BP 164/67
--- NOTE | 2019-01-13 12:40 | Pulmonology Progress Note ---
Assessment/Plan Assessment/Plan 1. Resp failure, hypercapneic 2. End-stage renal disease, on dialysis, status post multiple upper extremity vascular procedures. 3. Coronary artery bypass surgery. 4. Diabetes. 5. Dysphonia, tongue swelling, resolved; s/p trach 6. Trapped R lung with hydropneumothorax PLAN: seems stable, no SOB on vent CXR AM re PTX, effusion, trapped lung disc w RN Subjective Constitutional: Reports: no symptoms Allergies: Coded Allergies: CEPHALEXIN (Unverified Allergy, Unknown, 02/24/14) SULFAMETHOXAZOLE (Unverified Allergy, Unknown, 02/24/14) TRIMETHOPRIM (Unverified Allergy, Unknown, 02/24/14) Objective Last 24 Hour Vital Signs Date Time Temp Pulse Resp B/P (MAP) Pulse Ox O2 Delivery O2 Flow Rate FiO2 01/13/19 10:43 100 01/13/19 10:43 74 29 40 01/13/19 09:00 40 01/13/19 08:40 79 28 40 01/13/19 08:00 77 01/13/19 08:00 Mechanical Ventilator 01/13/19 08:00 97.6 79 24 128/74 (92) 100 01/13/19 07:15 80 27 40 01/13/19 05:02 72 24 40 40 01/13/19 04:00 85 01/13/19 04:00 96.8 82 26 130/74 (92) 100 01/13/19 04:00 40 01/13/19 04:00 Mechanical Ventilator 01/13/19 02:51 78 22 40 40 01/13/19 01:06 72 24 40 40 01/13/19 00:00 Mechanical Ventilator 01/13/19 00:00 96 01/13/19 00:00 97.7 97 22 128/82 (97) 100 01/13/19 00:00 40 01/12/19 23:22 76 22 40 40 01/12/19 20:55 98.2 01/12/19 20:39 78 26 40 40 01/12/19 20:00 83 01/12/19 20:00 40 01/12/19 20:00 98.2 82 24 127/61 (83) 100 01/12/19 20:00 Mechanical Ventilator 01/12/19 19:03 85 29 40 40 5/28/19 16:44 75 26 40 01/12/19 16:00 40 01/12/19 16:00 Mechanical Ventilator 01/12/19 16:00 98.2 76 21 102/69 (80) 100 01/12/19 15:18 78 01/12/19 15:02 83 24 40 Intake and Output 01/12/19 01/13/19 19:00 07:00 Intake Total 690 ml 330 ml Balance 690 ml 330 ml Free Water 150 ml 60 ml Tube Feeding 540 ml 270 ml # Bowel Movements 5 Objective trach on vent General Appearance: no acute distress Respiratory/Chest: decreased breath sounds Cardiovascular: normal rate Laboratory Tests 01/13/19 03:35: White Blood Count 8.8, Red Blood Count 3.48L, Hemoglobin 8.7L, Hematocrit 27.9L , Mean Corpuscular Volume 80, Mean Corpuscular Hemoglobin 25.2L, Mean Corpuscular Hemoglobin Concent 31.3L, Red Cell Distribution Width 16.4H, Platelet Count 191, Mean Platelet Volume 6.7, Neutrophils (%) (Auto) 80.7H, Lymphocytes (%) (Auto) 10.9L, Monocytes (%) (Auto) 7.5, Eosinophils (%) (Auto) 0.0, Basophils (%) (Auto) 0.9, Sodium Level 132L, Potassium Level 4.2, Chloride Level 93L, Carbon Dioxide Level 27, Anion Gap 12, Blood Urea Nitrogen 77H, Creatinine 6.3H, Estimat Glomerular Filtration Rate 8.9, Glucose Level 130H, Calcium Level 9.1, Phosphorus Level 4.4, Magnesium Level 2.1, Total Bilirubin 0.4, Gamma Glutamyl Transpeptidase 42, Aspartate Amino Transf (AST/SGOT) 15, Alanine Aminotransferase (ALT/SGPT) 9L, Alkaline Phosphatase 143H, Total Protein 6.4, Albumin 1.9L, Globulin 4.5, Albumin/Globulin Ratio 0.4L Current Medications Medications (Trade) Dose Ordered Sig/Aleks Route PRN Reason Start Time Stop Time Status Last Admin Dose Admin Acetaminophen (Tylenol) 650 mg Q6H PRN GT Mild Pain/Temp > 100.5 12/21/18 16:00 01/20/19 15:59 01/12/19 20:25 Apixaban (Eliquis) 2.5 mg BID GT 01/01/19 21:00 01/31/19 20:59 01/12/19 18:05 Clotrimazole (Lotrimin) 1 applic DAILY TOPIC 01/08/19 18:00 02/07/19 17:59 01/13/19 08:53 Collagenase (Santyl) 1 applic DAILY TOPIC 12/29/18 09:00 01/28/19 08:59 01/13/19 08:53 Dextrose (Dextrose 50%) 25 ml Q30M PRN IV Hypoglycemia 12/31/18 23:00 01/30/19 22:59 Dextrose (Dextrose 50%) 50 ml Q30M PRN IV Hypoglycemia 12/31/18 23:00 01/30/19 22:59 Epoetin Vini (Epoetin Vini(ESRD on dialysis)) 10,000 unit SUBQ 01/06/19 21:00 02/05/19 20:59 01/11/19 20:40 Escitalopram Oxalate (Lexapro) 20 mg DAILY GT 01/05/19 09:00 02/04/19 08:59 01/12/19 09:48 Hydralazine HCl (Apresoline) 25 mg Q4H PRN GT bp over 160 syst 01/06/19 15:00 02/05/19 14:59 Insulin Aspart (NovoLOG) EVERY 6 HOURS SUBQ 01/01/19 00:00 01/31/19 00:00 01/12/19 23:01 Loperamide HCl (Imodium) 2 mg Q6H PRN GT Diarrhea 01/07/19 11:00 02/06/19 10:59 01/13/19 01:56 Metoclopramide HCl (Reglan) 5 mg Q6H PRN IVP Nausea & Vomiting 12/30/18 17:30 01/29/19 17:29 01/05/19 20:45 Mirtazapine (Remeron) 15 mg BEDTIME GT 12/21/18 21:00 01/20/19 20:59 01/12/19 20:25 Tacrolimus (Prograf) 2 mg MoWeFr@0000,1200 ORAL 12/28/18 00:00 01/27/19 00:00 01/12/19 23:00 Tacrolimus (Prograf) 2 mg SuTuThSa@0900,2100 ORAL 12/26/18 21:00 6/10/19 20:59 01/12/19 20:25 Saroj Mendoza MD January 13, 2019 12:40
--- NOTE | 2019-01-13 12:45 | Hematology/Onc Progress Note ---
Assessment/Plan Assessment/Plan Assessment and Recs: # Anemia of chronic disease due to underlying chronic medical issues, range has been 8-11 --> ferritin is 633, tibc is low --> No evidence of hemolysis is noted, peripheral smear has been reviewed. --> Epogen can be consider if hgb downtrends --> Medications have been reviewed --> evaluate with Gi team prn --> transfuse if hgb is < 7 (will trend CBC daily) --> hgb trend 11.2-->10.9-->10.8-->10.7-->10.2-->9.7-->9.7-->8.5-->9-->9.2-->8.4 -->7.7-->8.8-->9.1-->8.6 --> s/p transfusion on 01/06 # Failure to thrive is likely related to poor overall status, poor functional status --> with multiple decub ulcerations that are noted, seen by id/surgery --> s/p trach as well --> cea is wnl # Acute non-occlusive dvt, right extremity ultrasound (acute non-occlusive DVT in internal jugular) --> currently is on eliquis 2.5mg po bid --> do not recommend a SVC filter --> given prior bleeding risk, hold off on heparin gtt --> vasc surgeon is aware, seek recs # Coagulopathy likely secondary to decreased Vitk dependent cofactors (high INR , PT) --> monitor closely for any evidence of bleeding. Currently is on eliquis --> VIT K on prn basis sq can be administered --> recently has improved inr 1.2-->1.1-->1.2 # Acute respiratory failure is now s/p trach to vent --> as per surgery recs # Ground glass opacities present on imaging of lung --> with pleural effusions, s/p drainage at this time --> no evidence for malignancy is noted --> as per pulm/id # Pleural effusion --> s/p thoracentesis, s/p paracentesis 12/31 --> no evidence of malignancy # Hyperkalemia --> kayxelate on prn basis per renal --> monitor K # Renal failure --> per renal recs, appreciated --> getting hd as per schedule # Altered level of consciousness --> currently as per baseline --> neuro eval prn # PAD off heparin gtt and now on eliquis --> per vasc and cards --> 12/22 s/p right leg angiogram with intervention --> on eliquis, continue # Gt tube cellulitis, on topical abx as per id around site The timing of this note does not necessarily reflect the time of the patient was seen. Greatly appreciate consultation! Subjective Constitutional: Denies: no symptoms, chills, fever, malaise, weakness, other HEENT: Denies: no symptoms, eye pain, blurred vision, tearing, double vision, ear pain, ear discharge, nose pain, nose congestion, throat pain, throat swelling, mouth pain, mouth swelling, other Cardiovascular: Denies: no symptoms, chest pain, edema, irregular heart rate, lightheadedness, palpitations, syncope, other Respiratory: Denies: no symptoms, cough, shortness of breath, SOB with excertion, SOB at rest, sputum, wheezing, other Genitourinary: Denies: no symptoms, burning, discharge, frequency, flank pain, hematuria, incontinence, pain, urgency, other 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: Denies: no symptoms, anxiety, depressed, emotional problems, headache, numbness, paresthesia, pre-existing deficit, seizure, tingling, tremors, weakness, other Endocrine: Denies: no symptoms, excessive sweating, flushing, intolerance to cold, intolerance to heat, increased hunger, increased thirst, increased urine, unexplained weight gain, unexplained weight loss, other Allergies: Coded Allergies: CEPHALEXIN (Unverified Allergy, Unknown, 02/24/14) SULFAMETHOXAZOLE (Unverified Allergy, Unknown, 02/24/14) TRIMETHOPRIM (Unverified Allergy, Unknown, 02/24/14) Subjective 11/30: comfortable, on abx, no complaints, on t-piece 12/01: to have hd done potentially tomorrow, is more alert/awake 12/02: no major bleeding, hgb remains approx 11, no changes 12/03: no events, breathing mildly better, hgb is improved 12/04: on vent/trach, no major changes, sr ekg 12/10: small amount of secretions, on trach/vent, no issues otherwise 12/11: no major issues, no complaints, labs reviewed, no sig changes 12/13: no events to report, no fevers or chills, awaiting placement 12/14: no changes, no major events to report, no fevers or chills 12/15: pending placement, getting gt feeds and hd as per renal 12/16: labs have been reviewed, cbc noted, no changes 12/17: no events, no fevers, no cp, hgb remains stable 12/18: restarted on heparin gtt, seen by pulm, cards 12/20: continues to be on heparin gtt, no bleeding reported, no f/c 12/21: hd for today, no fevers or chils, off hep gtt on eliquis 12/22: to get hd tomorrow, today is s/p right leg angiogram with intervention 12/23: hgb remins stable, no fevers or chills reported 12/24: no events, no bleeding, vitals reviewed, cbc stable 12/25: no events, no bleeding, on vent, hgb 9 12/27: no changes, no f/c, no night swearts, seen with other providers 12/28: right extremity ultrasound (acute non-occlusive DVT in internal jugular, on eliquis 12/29: no events, no night sweats, seen by gi, no bleeding 12/30: cbc has been reviewed, no f/c, no night sweats reported 12/31: no events, eliquis is on hold cbc has been reviewed, bp elevated 01/01: no fevers or chills, cbc reviewed, hgb 9.3, getting HD 01/02: no events noted, getting norco for pain, hgb stable 01/04: not events to report, no bleeding, refusing ivl at this time, cbc reviewed 01/05: no fevers or chills noted, s/p trach/vent, no f/c, no chills noted 01/06: no events, to get 1 unit prbc today, renal seen, on abx 01/07: hd for tomorrow, seen by renal, no events, cbc reviewed 01/08: getting Hd today, seen by renal, no major events, in sr 01/10: no events to report, to get hd tomorrow, hgb stable 01/11: on vent/trach, gtube, tolerating treatment well, hd today 01/12: remains nonverbal, stable, on vent/trach, no fc 01/13: no events noted, cbc has been reviewed Objective Objective Current Medications Medications (Trade) Dose Ordered Sig/Aleks Route PRN Reason Start Time Stop Time Status Last Admin Dose Admin Acetaminophen (Tylenol) 650 mg Q6H PRN GT Mild Pain/Temp > 100.5 12/21/18 16:00 01/20/19 15:59 01/12/19 20:25 Apixaban (Eliquis) 2.5 mg BID GT 01/01/19 21:00 01/31/19 20:59 01/12/19 18:05 Clotrimazole (Lotrimin) 1 applic DAILY TOPIC 01/08/19 18:00 02/07/19 17:59 01/13/19 08:53 Collagenase (Santyl) 1 applic DAILY TOPIC 12/29/18 09:00 01/28/19 08:59 01/13/19 08:53 Dextrose (Dextrose 50%) 25 ml Q30M PRN IV Hypoglycemia 12/31/18 23:00 01/30/19 22:59 Dextrose (Dextrose 50%) 50 ml Q30M PRN IV Hypoglycemia 12/31/18 23:00 01/30/19 22:59 Epoetin Vini (Epoetin Vini(ESRD on dialysis)) 10,000 unit FRI-FRI-FRI SUBQ 01/06/19 21:00 02/05/19 20:59 01/11/19 20:40 Escitalopram Oxalate (Lexapro) 20 mg DAILY GT 01/05/19 09:00 02/04/19 08:59 01/12/19 09:48 Hydralazine HCl (Apresoline) 25 mg Q4H PRN GT bp over 160 syst 01/06/19 15:00 02/05/19 14:59 Insulin Aspart (NovoLOG) EVERY 6 HOURS SUBQ 01/01/19 00:00 01/31/19 00:00 01/12/19 23:01 Loperamide HCl (Imodium) 2 mg Q6H PRN GT Diarrhea 01/07/19 11:00 02/06/19 10:59 01/13/19 01:56 Metoclopramide HCl (Reglan) 5 mg Q6H PRN IVP Nausea & Vomiting 12/30/18 17:30 01/29/19 17:29 01/05/19 20:45 Mirtazapine (Remeron) 15 mg BEDTIME GT 12/21/18 21:00 01/20/19 20:59 01/12/19 20:25 Tacrolimus (Prograf) 2 mg MoWeFr@0000,1200 ORAL 12/28/18 00:00 01/27/19 00:00 01/12/19 23:00 Tacrolimus (Prograf) 2 mg SuTuThSa@0900,2100 ORAL 12/26/18 21:00 01/25/19 20:59 01/12/19 20:25 Last 24 Hour Vital Signs Date Time Temp Pulse Resp B/P (MAP) Pulse Ox O2 Delivery O2 Flow Rate FiO2 01/13/19 12:37 78 29 40 01/13/19 10:43 100 01/13/19 10:43 74 29 40 01/13/19 09:00 40 01/13/19 08:40 79 28 40 01/13/19 08:00 77 01/13/19 08:00 Mechanical Ventilator 01/13/19 08:00 97.6 79 24 128/74 (92) 100 01/13/19 07:15 80 27 40 01/13/19 05:02 72 24 40 40 01/13/19 04:00 85 01/13/19 04:00 96.8 82 26 130/74 (92) 100 01/13/19 04:00 40 01/13/19 04:00 Mechanical Ventilator 01/13/19 02:51 78 22 40 40 01/13/19 01:06 72 24 40 40 01/13/19 00:00 Mechanical Ventilator 01/13/19 00:00 96 01/13/19 00:00 97.7 97 22 128/82 (97) 100 01/13/19 00:00 40 01/12/19 23:22 76 22 40 40 01/12/19 20:55 98.2 01/12/19 20:39 78 26 40 40 01/12/19 20:00 83 01/12/19 20:00 40 01/12/19 20:00 98.2 82 24 127/61 (83) 100 01/12/19 20:00 Mechanical Ventilator 01/12/19 19:03 85 29 40 40 01/12/19 16:44 75 26 40 01/12/19 16:00 40 01/12/19 16:00 Mechanical Ventilator 01/12/19 16:00 98.2 76 21 102/69 (80) 100 01/12/19 15:18 78 01/12/19 15:02 83 24 40 01/12/19 12:30 81 23 40 01/12/19 12:00 96.8 75 25 146/63 (90) 99 01/12/19 12:00 Mechanical Ventilator 01/12/19 12:00 40 01/12/19 11:37 79 01/12/19 10:48 75 22 40 01/12/19 08:45 81 26 40 01/12/19 08:00 Mechanical Ventilator 01/12/19 08:00 97.3 79 26 100 01/12/19 08:00 40 01/12/19 07:43 82 01/12/19 07:10 73 25 40 01/12/19 05:28 69 26 40 01/12/19 04:00 97.6 85 20 107/92 (97) 100 01/12/19 04:00 Mechanical Ventilator 01/12/19 04:00 81 01/12/19 04:00 40 01/12/19 02:46 90 30 40 01/12/19 01:04 84 29 40 01/12/19 00:00 Mechanical Ventilator 01/12/19 00:00 40 01/12/19 00:00 83 01/12/19 00:00 97.8 83 20 114/61 (78) 100 01/11/19 23:10 87 27 40 01/11/19 21:15 88 25 40 01/11/19 20:00 Mechanical Ventilator 01/11/19 20:00 40 01/11/19 20:00 97.9 80 20 108/60 (76) 100 01/11/19 20:00 86 01/11/19 19:24 85 25 40 01/11/19 17:20 84 24 40 01/11/19 16:00 Mechanical Ventilator 01/11/19 16:00 98.2 83 20 117/74 (88) 100 01/11/19 16:00 40 01/11/19 15:20 77 01/11/19 14:58 82 27 40 01/11/19 13:11 84 26 40 Intake and Output 01/12/19 01/13/19 19:00 07:00 Intake Total 690 ml 330 ml Balance 690 ml 330 ml Free Water 150 ml 60 ml Tube Feeding 540 ml 270 ml # Bowel Movements 5 Labs Test 01/13/19 03:35 White Blood Count 8.8 K/UL (4.8-10.8) Red Blood Count 3.48 M/UL (4.70-6.10) Hemoglobin 8.7 G/DL (14.2-18.0) Hematocrit 27.9 % (42.0-52.0) Mean Corpuscular Volume 80 FL (80-99) Mean Corpuscular Hemoglobin 25.2 PG (27.0-31.0) Mean Corpuscular Hemoglobin Concent 31.3 G/DL (32.0-36.0) Red Cell Distribution Width 16.4 % (11.6-14.8) Platelet Count 191 K/UL (150-450) Mean Platelet Volume 6.7 FL (6.5-10.1) Neutrophils (%) (Auto) 80.7 % (45.0-75.0) Lymphocytes (%) (Auto) 10.9 % (20.0-45.0) Monocytes (%) (Auto) 7.5 % (1.0-10.0) Eosinophils (%) (Auto) 0.0 % (0.0-3.0) Basophils (%) (Auto) 0.9 % (0.0-2.0) Sodium Level 132 MMOL/L (136-145) Potassium Level 4.2 MMOL/L (3.5-5.1) Chloride Level 93 MMOL/L (98-107) Carbon Dioxide Level 27 MMOL/L (21-32) Anion Gap 12 mmol/L (5-15) Blood Urea Nitrogen 77 mg/dL (7-18) Creatinine 6.3 MG/DL (0.55-1.30) Estimat Glomerular Filtration Rate 8.9 mL/min (>60) Glucose Level 130 MG/DL (74-106) Calcium Level 9.1 MG/DL (8.5-10.1) Phosphorus Level 4.4 MG/DL (2.5-4.9) Magnesium Level 2.1 MG/DL (1.8-2.4) Total Bilirubin 0.4 MG/DL (0.2-1.0) Gamma Glutamyl Transpeptidase 42 U/L (5-85) Aspartate Amino Transf (AST/SGOT) 15 U/L (15-37) Alanine Aminotransferase (ALT/SGPT) 9 U/L (12-78) Alkaline Phosphatase 143 U/L (46-116) Total Protein 6.4 G/DL (6.4-8.2) Albumin 1.9 G/DL (3.4-5.0) Globulin 4.5 g/dL Albumin/Globulin Ratio 0.4 (1.0-2.7) Height (Feet): 5 Height (Inches): 4.00 Weight (Pounds): 226 Objective PE General Appearance: mild distress, moderate distress Lines, tubes and drains: peripheral HEENT: EOMI, thrush, tonsils swollen ++trach Neck: normal inspection Respiratory/Chest: decreased breath sounds, accessory muscle use Cardiovascular/Chest: tachycardia Abdomen: soft, no organomegaly, no mass, ++ peg Extremities: other Skin Exam: warm/dry, rash Neurologic: alert, responsive Zacarias Khoury MD January 13, 2019 12:45
[2019-01-13] MEDS: Eliquis 2.5mg tablet GT SCH ×2 (12:49→17:33)
--- NOTE | 2019-01-13 12:57 | Cardiac Electrophysiology PN ---
Assessment/Plan Assessment/Plan 1. Troponin leak due to renal failure. No CP or SOB. Nl EF 2. Hx of CABG. No CP on Coreg, aspirin and Lipitor 3. NSVT in setting of old NV and CABG. EF 55%. Continue Coreg 4. CHF and right pleural effusion. On hemodialysis. S/P Thoracentesis 5. S/P Right sided [employer] DDD pacemaker with Nl Fx. 6. End-stage renal disease, on hemodialysis per Dr. Stevens 7. Multilevel AOD LE's with non-healing Right foot ulcer. Had abdominal angiogram per Dr Salmeron Antibiotic per Dr. Landis. FU by Dr. Huizar S/P peripheral intervention by Dr. Salmeron 12/22/18 Right foot on Wound-Vac 8. History of liver transplant on Prograf 9. Respiratory failure, S/P tracheostomy. 10. Pleural effusion. s/p 2300 cc thoracentesis 01/01/19 11. Dysphagia, S/P PEG DW RN Subjective Subjective Ne events. Alert in NAD. Just had 3 liters HD Objective Last 24 Hour Vital Signs Date Time Temp Pulse Resp B/P (MAP) Pulse Ox O2 Delivery O2 Flow Rate FiO2 01/13/19 12:37 78 29 40 01/13/19 10:43 100 01/13/19 10:43 74 29 40 01/13/19 09:00 40 01/13/19 08:40 79 28 40 01/13/19 08:00 77 01/13/19 08:00 Mechanical Ventilator 01/13/19 08:00 97.6 79 24 128/74 (92) 100 01/13/19 07:15 80 27 40 01/13/19 05:02 72 24 40 40 01/13/19 04:00 85 01/13/19 04:00 96.8 82 26 130/74 (92) 100 01/13/19 04:00 40 01/13/19 04:00 Mechanical Ventilator 01/13/19 02:51 78 22 40 40 01/13/19 01:06 72 24 40 40 01/13/19 00:00 Mechanical Ventilator 01/13/19 00:00 96 01/13/19 00:00 97.7 97 22 128/82 (97) 100 01/13/19 00:00 40 01/12/19 23:22 76 22 40 40 01/12/19 20:55 98.2 01/12/19 20:39 78 26 40 40 01/12/19 20:00 83 01/12/19 20:00 40 01/12/19 20:00 98.2 82 24 127/61 (83) 100 01/12/19 20:00 Mechanical Ventilator 01/12/19 19:03 85 29 40 40 01/12/19 16:44 75 26 40 01/12/19 16:00 40 01/12/19 16:00 Mechanical Ventilator 01/12/19 16:00 98.2 76 21 102/69 (80) 100 01/12/19 15:18 78 01/12/19 15:02 83 24 40 Intake and Output 01/12/19 01/13/19 19:00 07:00 Intake Total 690 ml 330 ml Balance 690 ml 330 ml Free Water 150 ml 60 ml Tube Feeding 540 ml 270 ml # Bowel Movements 5 Laboratory Tests Test 01/13/19 03:35 White Blood Count 8.8 K/UL (4.8-10.8) Red Blood Count 3.48 M/UL (4.70-6.10) L Hemoglobin 8.7 G/DL (14.2-18.0) L Hematocrit 27.9 % (42.0-52.0) L Mean Corpuscular Volume 80 FL (80-99) Mean Corpuscular Hemoglobin 25.2 PG (27.0-31.0) L Mean Corpuscular Hemoglobin Concent 31.3 G/DL (32.0-36.0) L Red Cell Distribution Width 16.4 % (11.6-14.8) H Platelet Count 191 K/UL (150-450) Mean Platelet Volume 6.7 FL (6.5-10.1) Neutrophils (%) (Auto) 80.7 % (45.0-75.0) H Lymphocytes (%) (Auto) 10.9 % (20.0-45.0) L Monocytes (%) (Auto) 7.5 % (1.0-10.0) Eosinophils (%) (Auto) 0.0 % (0.0-3.0) Basophils (%) (Auto) 0.9 % (0.0-2.0) Sodium Level 132 MMOL/L (136-145) L Potassium Level 4.2 MMOL/L (3.5-5.1) Chloride Level 93 MMOL/L (98-107) L Carbon Dioxide Level 27 MMOL/L (21-32) Anion Gap 12 mmol/L (5-15) Blood Urea Nitrogen 77 mg/dL (7-18) H Creatinine 6.3 MG/DL (0.55-1.30) H Estimat Glomerular Filtration Rate 8.9 mL/min (>60) Glucose Level 130 MG/DL (74-106) H Calcium Level 9.1 MG/DL (8.5-10.1) Phosphorus Level 4.4 MG/DL (2.5-4.9) Magnesium Level 2.1 MG/DL (1.8-2.4) Total Bilirubin 0.4 MG/DL (0.2-1.0) Gamma Glutamyl Transpeptidase 42 U/L (5-85) Aspartate Amino Transf (AST/SGOT) 15 U/L (15-37) Alanine Aminotransferase (ALT/SGPT) 9 U/L (12-78) L Alkaline Phosphatase 143 U/L (46-116) H Total Protein 6.4 G/DL (6.4-8.2) Albumin 1.9 G/DL (3.4-5.0) L Globulin 4.5 g/dL Albumin/Globulin Ratio 0.4 (1.0-2.7) L Objective HEAD AND NECK: No JVD. Tracheostomy intact LUNGS: Clear CARDIOVASCULAR: Irregular S1 and S2 with no gallop. Sternotomy is intact Pacemaker in the right subclavian ABDOMEN: Soft. PEG in place EXTREMITIES: 1+ pitting edema. Right heel in dressing and connected to WoundVac Shivam Sharpe MD January 13, 2019 12:57
[2019-01-13] MEDS: Acetaminophen 650mg/20.3ml GT PRN ×2 (12:58→22:50)
--- NOTE | 2019-01-13 15:51 | Nephrology Progress Note ---
Assessment/Plan Problem List: (1) ESRD (end stage renal disease) on dialysis (2) Foot ulcer (3) CHF (congestive heart failure) Assessment: Ej Fx 20 % (4) Pacemaker (5) Acute respiratory failure Assessment: with Co2 retention (6) G-tube site cellulitis Assessment ESRD with high K and SOB on admit Foot ulcer, likely infected High Troponin likely NSTMI Pacer , Pleural effusion s/p CABGS s/p Liver transplant Plan dialysis next 01/13 done labs before HD noted BP low- improved on midodrine per consultants, GI GT site infection, topical antibiotic Neuro note appreciated placement in process vascular esteban regarding heel ulcer per Dr Mcgill pain med change to dilaudid GT Now has tracheostomy and PEG Adjust BP meds add nitro paste TID Antibiotics by ID per cardio and ID Podiatry and Vascular surgical fu ? DC planning? Subjective ROS Limited/Unobtainable: No Constitutional: Reports: malaise Objective Objective Last 24 Hour Vital Signs Date Time Temp Pulse Resp B/P (MAP) Pulse Ox O2 Delivery O2 Flow Rate FiO2 01/13/19 14:42 83 28 40 01/13/19 13:28 97.6 01/13/19 12:37 78 29 40 01/13/19 12:00 97.7 83 28 164/67 (99) 100 01/13/19 12:00 40 01/13/19 12:00 Mechanical Ventilator 01/13/19 11:39 84 01/13/19 10:43 100 01/13/19 10:43 74 29 40 01/13/19 09:00 40 01/13/19 08:40 79 28 40 01/13/19 08:00 77 01/13/19 08:00 Mechanical Ventilator 01/13/19 08:00 97.6 79 24 128/74 (92) 100 01/13/19 07:15 80 27 40 01/13/19 05:02 72 24 40 40 01/13/19 04:00 85 01/13/19 04:00 96.8 82 26 130/74 (92) 100 01/13/19 04:00 40 01/13/19 04:00 Mechanical Ventilator 01/13/19 02:51 78 22 40 40 01/13/19 01:06 72 24 40 40 01/13/19 00:00 Mechanical Ventilator 01/13/19 00:00 96 01/13/19 00:00 97.7 97 22 128/82 (97) 100 01/13/19 00:00 40 01/12/19 23:22 76 22 40 40 01/12/19 20:39 78 26 40 40 01/12/19 20:00 83 01/12/19 20:00 40 01/12/19 20:00 98.2 82 24 127/61 (83) 100 01/12/19 20:00 Mechanical Ventilator 01/12/19 19:03 85 29 40 40 01/12/19 16:44 75 26 40 01/12/19 16:00 40 01/12/19 16:00 Mechanical Ventilator 01/12/19 16:00 98.2 76 21 102/69 (80) 100 Intake and Output 01/12/19 01/13/19 19:00 07:00 Intake Total 690 ml 330 ml Balance 690 ml 330 ml Free Water 150 ml 60 ml Tube Feeding 540 ml 270 ml # Bowel Movements 5 Laboratory Tests 01/13/19 03:35: White Blood Count 8.8, Red Blood Count 3.48L, Hemoglobin 8.7L, Hematocrit 27.9L , Mean Corpuscular Volume 80, Mean Corpuscular Hemoglobin 25.2L, Mean Corpuscular Hemoglobin Concent 31.3L, Red Cell Distribution Width 16.4H, Platelet Count 191, Mean Platelet Volume 6.7, Neutrophils (%) (Auto) 80.7H, Lymphocytes (%) (Auto) 10.9L, Monocytes (%) (Auto) 7.5, Eosinophils (%) (Auto) 0.0, Basophils (%) (Auto) 0.9, Sodium Level 132L, Potassium Level 4.2, Chloride Level 93L, Carbon Dioxide Level 27, Anion Gap 12, Blood Urea Nitrogen 77H, Creatinine 6.3H, Estimat Glomerular Filtration Rate 8.9, Glucose Level 130H, Calcium Level 9.1, Phosphorus Level 4.4, Magnesium Level 2.1, Total Bilirubin 0.4, Gamma Glutamyl Transpeptidase 42, Aspartate Amino Transf (AST/SGOT) 15, Alanine Aminotransferase (ALT/SGPT) 9L, Alkaline Phosphatase 143H, Total Protein 6.4, Albumin 1.9L, Globulin 4.5, Albumin/Globulin Ratio 0.4L Height (Feet): 5 Height (Inches): 4.00 Weight (Pounds): 226 EENT: other - trach Cardiovascular: normal rate Respiratory/Chest: decreased breath sounds Abdomen: distended, other Objective no other change Nakul Stevens MD January 13, 2019 15:51
[2019-01-13 16:00] VITALS: BP 151/97
--- NOTE | 2019-01-13 16:14 | General Progress Note ---
Assessment/Plan Assessment/Plan: #Right heel diabetic foot ulcer without osteomyelitis #PAD #Right IJ DVT -seen by Podiatry and ID -s/p Vanco x 2 weeks during HD -continue Eliquis -Vascular Surgery and Hematology following #Acute Resp hypercapnic failure s/p tracheostomy #Angioedema #Large right pleural effusion # R side trapped lung -continue trach care -Remains vent-dependant, breathing trials ongoing -Right thoracentesis 01/01/19 with 2.3 lt removed. Post procedure CXR with R trapped lung. -continue weaning trials -Pulm follow up #End-stage renal disease, on dialysis M-W- #RUE edema #Anasarca, ascites, scrotal edema, pleural effusion due to hypoalbuminemia -HD with UF per Nephrology -s/p PRBC transfusion during HD #Coronary artery disease -continue ASA, Coreg, atorvastatin -cardiology following #Type 2 DM -ISS #Acute metabolic encephalopathy -continue supportive care -Neurology following #history of chronic HCV infection #history of liver transplant -continue Prograf -GI following #Abdominal distension and ascites s/p therapeutic paracentesis -no nausea, vomiting or tenderness -continue supportive care -GI following -s/p paracentesis 12/31/18 4.1 lt #Dysphagia S/p PEG with PEG site cellulitis -s/p antibiotics per ID and GI -continue local wound care -tolerating tube feeds # FULL CODE Subjective Date patient seen: January 13, 2019 Time patient seen: 15:42 ROS Limited/Unobtainable: Yes Cardiovascular: Denies: chest pain Respiratory: Denies: cough Gastrointestinal/Abdominal: Denies: abdomen distended, abdominal pain Allergies: Coded Allergies: CEPHALEXIN (Unverified Allergy, Unknown, 02/24/14) SULFAMETHOXAZOLE (Unverified Allergy, Unknown, 02/24/14) TRIMETHOPRIM (Unverified Allergy, Unknown, 02/24/14) Subjective Medicine follow up for acute resp failure, PAD, right heel infected DFU, ESRD, anasarca secondary to hypoalbuminemia, right IJ DVT. S/p 4 liter paracentesis and 2 liter thoracentesis No new complaints. Objective Last 24 Hour Vital Signs Date Time Temp Pulse Resp B/P (MAP) Pulse Ox O2 Delivery O2 Flow Rate FiO2 01/13/19 14:42 83 28 40 01/13/19 13:28 97.6 01/13/19 12:37 78 29 40 01/13/19 12:00 97.7 83 28 164/67 (99) 100 01/13/19 12:00 40 01/13/19 12:00 Mechanical Ventilator 01/13/19 11:39 84 01/13/19 10:43 100 01/13/19 10:43 74 29 40 01/13/19 09:00 40 01/13/19 08:40 79 28 40 01/13/19 08:00 77 01/13/19 08:00 Mechanical Ventilator 01/13/19 08:00 97.6 79 24 128/74 (92) 100 01/13/19 07:15 80 27 40 01/13/19 05:02 72 24 40 40 01/13/19 04:00 85 01/13/19 04:00 96.8 82 26 130/74 (92) 100 01/13/19 04:00 40 01/13/19 04:00 Mechanical Ventilator 01/13/19 02:51 78 22 40 40 01/13/19 01:06 72 24 40 40 01/13/19 00:00 Mechanical Ventilator 01/13/19 00:00 96 01/13/19 00:00 97.7 97 22 128/82 (97) 100 01/13/19 00:00 40 01/12/19 23:22 76 22 40 40 01/12/19 20:39 78 26 40 40 01/12/19 20:00 83 01/12/19 20:00 40 01/12/19 20:00 98.2 82 24 127/61 (83) 100 01/12/19 20:00 Mechanical Ventilator 01/12/19 19:03 85 29 40 40 01/12/19 16:44 75 26 40 Intake and Output 01/12/19 01/13/19 19:00 07:00 Intake Total 690 ml 330 ml Balance 690 ml 330 ml Free Water 150 ml 60 ml Tube Feeding 540 ml 270 ml # Bowel Movements 5 Laboratory Tests 01/13/19 03:35: White Blood Count 8.8, Red Blood Count 3.48L, Hemoglobin 8.7L, Hematocrit 27.9L , Mean Corpuscular Volume 80, Mean Corpuscular Hemoglobin 25.2L, Mean Corpuscular Hemoglobin Concent 31.3L, Red Cell Distribution Width 16.4H, Platelet Count 191, Mean Platelet Volume 6.7, Neutrophils (%) (Auto) 80.7H, Lymphocytes (%) (Auto) 10.9L, Monocytes (%) (Auto) 7.5, Eosinophils (%) (Auto) 0.0, Basophils (%) (Auto) 0.9, Sodium Level 132L, Potassium Level 4.2, Chloride Level 93L, Carbon Dioxide Level 27, Anion Gap 12, Blood Urea Nitrogen 77H, Creatinine 6.3H, Estimat Glomerular Filtration Rate 8.9, Glucose Level 130H, Calcium Level 9.1, Phosphorus Level 4.4, Magnesium Level 2.1, Total Bilirubin 0.4, Gamma Glutamyl Transpeptidase 42, Aspartate Amino Transf (AST/SGOT) 15, Alanine Aminotransferase (ALT/SGPT) 9L, Alkaline Phosphatase 143H, Total Protein 6.4, Albumin 1.9L, Globulin 4.5, Albumin/Globulin Ratio 0.4L Height (Feet): 5 Height (Inches): 4.00 Weight (Pounds): 226 General Appearance: no apparent distress, alert Neck: normal alignment, supple Cardiovascular: normal rate, regular rhythm Respiratory/Chest: lungs clear, normal breath sounds Abdomen: non tender, soft Dennis Branham MD January 13, 2019 16:14
--- NOTE | 2019-01-13 17:56 | Infectious Diseases Prog Note ---
Assessment/Plan Problems: (1) Diarrhea Assessment & Plan: with no infectious etiology so far , and negative stool for C diff toxin , and no pathogens on stool culture , avoid laxatives, monitor clinically , encourage hydration (2) Foot ulcer Assessment & Plan: with MRSA grew out of it in the past, S/P vancomycin treatment with HD for two weeks, had vascular eval with revascularization to the right leg , S/P ulcer resection by employee welfare manager . deep ulcer culture grew MRSA and E.coli with diphtheroids , possible colonization , with no evidence of active infection as per discussion with podiatry , no need to be started on antibiotics for now , will continue to monitor clinically and make recommendations as necessary . bone scan ruled out osteomyelitis of the heel before, couldn't do an MRI since on the vent . continue local wound care as per employee welfare manager . (3) Thrush, oral Assessment & Plan: continue local nystatin as needed , S/P micafungin for three weeks empirically (4) HCV antibody positive Assessment & Plan: no evidence of active infection, with undetectable viral load , suspect due to previous infection , cleared, S/P liver transplant . (5) DM (diabetes mellitus) Assessment & Plan: recommend tight glycemic control to keep blood glucose between 100-140 (6) CHF (congestive heart failure) Assessment & Plan: on HD , renal is following, monitor daily weight (7) Severe tongue swelling Assessment & Plan: improving , s/p tracheostomy to protect his airway since respiratory status worsened . now improving, pulmonary is following (8) Pleural effusion Assessment & Plan: recurrent on the right, with lung collapse , S/P thoracentesis X 3 now with removal of 2.3 liters of clear fluids on 12/31/18 . await fluids culture and gram stain, with PH and Glucose level . PREVIOUS culture were negative with negative cytology. pulmonary is following (9) Ascites Assessment & Plan: S/P paracentesis with removal of 4.1 liters of fluids, culture so far is negative Assessment/Plan will continue to monitor patient on daily basis and make recommendations as necessary since he is high risk for recurrent infection Subjective Constitutional: Reports: no symptoms HEENT: Reports: no symptoms Respiratory: Reports: no symptoms Breasts: Reports: no symptoms Cardiovascular: Reports: no symptoms Gastrointestinal/Abdominal: Reports: no symptoms Genitourinary: Reports: no symptoms Neurologic: Reports: no symptoms Psychiatric: Reports: no symptoms Skin: Reports: ulcer Endocrine: Reports: no symptoms Hematologic: Reports: no symptoms Musculoskeletal: Reports: no symptoms Allergies: Coded Allergies: CEPHALEXIN (Unverified Allergy, Unknown, 02/24/14) SULFAMETHOXAZOLE (Unverified Allergy, Unknown, 02/24/14) TRIMETHOPRIM (Unverified Allergy, Unknown, 02/24/14) Subjective he was comfortable, lying in bed, denied any fever or chills, no significant secretions, no SOB . has heel pain at the surgery site with wound VAC in place , but no draining coming out . no diarrhea . Objective Vital Signs Last 24 Hour Vital Signs Date Time Temp Pulse Resp B/P (MAP) Pulse Ox O2 Delivery O2 Flow Rate FiO2 01/13/19 16:42 79 30 40 01/13/19 16:00 40 01/13/19 16:00 97.9 90 31 151/97 (115) 99 90 01/13/19 16:00 Mechanical Ventilator 01/13/19 16:00 89 01/13/19 14:42 83 28 40 01/13/19 13:28 97.6 01/13/19 12:37 78 29 40 01/13/19 12:00 97.7 83 28 164/67 (99) 100 01/13/19 12:00 40 01/13/19 12:00 Mechanical Ventilator 01/13/19 11:39 84 01/13/19 10:43 100 01/13/19 10:43 74 29 40 01/13/19 09:00 40 01/13/19 08:40 79 28 40 01/13/19 08:00 77 01/13/19 08:00 Mechanical Ventilator 01/13/19 08:00 97.6 79 24 128/74 (92) 100 01/13/19 07:15 80 27 40 01/13/19 05:02 72 24 40 40 01/13/19 04:00 85 01/13/19 04:00 96.8 82 26 130/74 (92) 100 01/13/19 04:00 40 01/13/19 04:00 Mechanical Ventilator 01/13/19 02:51 78 22 40 40 01/13/19 01:06 72 24 40 40 01/13/19 00:00 Mechanical Ventilator 01/13/19 00:00 96 01/13/19 00:00 97.7 97 22 128/82 (97) 100 01/13/19 00:00 40 01/12/19 23:22 76 22 40 40 01/12/19 20:39 78 26 40 40 01/12/19 20:00 83 01/12/19 20:00 40 01/12/19 20:00 98.2 82 24 127/61 (83) 100 01/12/19 20:00 Mechanical Ventilator 01/12/19 19:03 85 29 40 40 Height (Feet): 5 Height (Inches): 4.00 Weight (Pounds): 226 General Appearance: WD/WN, no acute distress HEENT: normocephalic, atraumatic, anicteric, mucous membranes moist, PERRL Respiratory/Chest: chest wall non-tender, lungs clear, normal breath sounds, no respiratory distress, no accessory muscle use Cardiovascular: normal peripheral pulses, normal rate, regular rhythm, no gallop/murmur, no JVD Abdomen: normal bowel sounds, soft, non tender, no organomegaly, non distended , no mass, no scars Genitourinary: normal external genitalia Extremities: no cyanosis, no clubbing Skin: no rash, no lesions 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: jumpbasting collar baster 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 normal, alert, responsive Lymphatic: no neck adenopathy, no groin adenopathy Musculoskeletal: normal muscle bulk, no effusion Laboratory Tests Test 01/13/19 03:35 White Blood Count 8.8 K/UL (4.8-10.8) Red Blood Count 3.48 M/UL (4.70-6.10) L Hemoglobin 8.7 G/DL (14.2-18.0) L Hematocrit 27.9 % (42.0-52.0) L Mean Corpuscular Volume 80 FL (80-99) Mean Corpuscular Hemoglobin 25.2 PG (27.0-31.0) L Mean Corpuscular Hemoglobin Concent 31.3 G/DL (32.0-36.0) L Red Cell Distribution Width 16.4 % (11.6-14.8) H Platelet Count 191 K/UL (150-450) Mean Platelet Volume 6.7 FL (6.5-10.1) Neutrophils (%) (Auto) 80.7 % (45.0-75.0) H Lymphocytes (%) (Auto) 10.9 % (20.0-45.0) L Monocytes (%) (Auto) 7.5 % (1.0-10.0) Eosinophils (%) (Auto) 0.0 % (0.0-3.0) Basophils (%) (Auto) 0.9 % (0.0-2.0) Sodium Level 132 MMOL/L (136-145) L Potassium Level 4.2 MMOL/L (3.5-5.1) Chloride Level 93 MMOL/L (98-107) L Carbon Dioxide Level 27 MMOL/L (21-32) Anion Gap 12 mmol/L (5-15) Blood Urea Nitrogen 77 mg/dL (7-18) H Creatinine 6.3 MG/DL (0.55-1.30) H Estimat Glomerular Filtration Rate 8.9 mL/min (>60) Glucose Level 130 MG/DL (74-106) H Calcium Level 9.1 MG/DL (8.5-10.1) Phosphorus Level 4.4 MG/DL (2.5-4.9) Magnesium Level 2.1 MG/DL (1.8-2.4) Total Bilirubin 0.4 MG/DL (0.2-1.0) Gamma Glutamyl Transpeptidase 42 U/L (5-85) Aspartate Amino Transf (AST/SGOT) 15 U/L (15-37) Alanine Aminotransferase (ALT/SGPT) 9 U/L (12-78) L Alkaline Phosphatase 143 U/L (46-116) H Total Protein 6.4 G/DL (6.4-8.2) Albumin 1.9 G/DL (3.4-5.0) L Globulin 4.5 g/dL Albumin/Globulin Ratio 0.4 (1.0-2.7) L Current Medications Medications (Trade) Dose Ordered Sig/Aleks Route PRN Reason Start Time Stop Time Status Last Admin Dose Admin Acetaminophen (Tylenol) 650 mg Q6H PRN GT Mild Pain/Temp > 100.5 12/21/18 16:00 01/20/19 15:59 01/13/19 12:58 Apixaban (Eliquis) 2.5 mg BID GT 01/01/19 21:00 01/31/19 20:59 01/13/19 17:33 Clotrimazole (Lotrimin) 1 applic DAILY TOPIC 01/08/19 18:00 02/07/19 17:59 01/13/19 08:53 Collagenase (Santyl) 1 applic DAILY TOPIC 12/29/18 09:00 01/28/19 08:59 01/13/19 08:53 Dextrose (Dextrose 50%) 25 ml Q30M PRN IV Hypoglycemia 12/31/18 23:00 01/30/19 22:59 Dextrose (Dextrose 50%) 50 ml Q30M PRN IV Hypoglycemia 12/31/18 23:00 01/30/19 22:59 Epoetin Vini (Epoetin Vini(ESRD on dialysis)) 10,000 unit FRI-FRI-FRI SUBQ 01/06/19 21:00 02/05/19 20:59 01/11/19 20:40 Escitalopram Oxalate (Lexapro) 20 mg DAILY GT 01/05/19 09:00 02/04/19 08:59 01/13/19 12:48 Hydralazine HCl (Apresoline) 25 mg Q4H PRN GT bp over 160 syst 01/06/19 15:00 02/05/19 14:59 Insulin Aspart (NovoLOG) EVERY 6 HOURS SUBQ 01/01/19 00:00 01/31/19 00:00 01/13/19 17:36 Loperamide HCl (Imodium) 2 mg Q6H PRN GT Diarrhea 01/07/19 11:00 02/06/19 10:59 01/13/19 01:56 Metoclopramide HCl (Reglan) 5 mg Q6H PRN IVP Nausea & Vomiting 12/30/18 17:30 01/29/19 17:29 01/05/19 20:45 Mirtazapine (Remeron) 15 mg BEDTIME GT 12/21/18 21:00 01/20/19 20:59 01/12/19 20:25 Tacrolimus (Prograf) 2 mg MoWeFr@0000,1200 ORAL 12/28/18 00:00 01/27/19 00:00 01/13/19 12:50 Tacrolimus (Prograf) 2 mg SuTuThSa@0900,2100 ORAL 12/26/18 21:00 01/25/19 20:59 01/12/19 20:25 Francois Landis M.D. January 13, 2019 17:56
--- NOTE | 2019-01-13 18:19 | Neurology Progress Note ---
Interim History Interim History Interim History Mr. Restrepo feels well. He has been more alert. His mood is better. He is in good spirits. The right heel is less painful - and is healing well. The right upper extremity is less swollen and less painful. He has been able to sleep better. He is breathing well but still artificially ventilated. He feels that his strength is stable. The mind is clearer. He is eager to eat. He denies any new neurological symptoms. He has not had PT/OT recently. Review of Systems Neuro Review of Systems Benign. Objective Physical Exam Last Vital Signs Date Time Temp Pulse Resp B/P (MAP) Pulse Ox O2 Delivery O2 Flow Rate FiO2 01/13/19 16:42 79 30 40 01/13/19 16:00 97.9 151/97 (115) 99 01/13/19 16:00 Mechanical Ventilator Laboratory Tests Test 01/13/19 03:35 White Blood Count 8.8 K/UL (4.8-10.8) Red Blood Count 3.48 M/UL (4.70-6.10) L Hemoglobin 8.7 G/DL (14.2-18.0) L Hematocrit 27.9 % (42.0-52.0) L Mean Corpuscular Volume 80 FL (80-99) Mean Corpuscular Hemoglobin 25.2 PG (27.0-31.0) L Mean Corpuscular Hemoglobin Concent 31.3 G/DL (32.0-36.0) L Red Cell Distribution Width 16.4 % (11.6-14.8) H Platelet Count 191 K/UL (150-450) Mean Platelet Volume 6.7 FL (6.5-10.1) Neutrophils (%) (Auto) 80.7 % (45.0-75.0) H Lymphocytes (%) (Auto) 10.9 % (20.0-45.0) L Monocytes (%) (Auto) 7.5 % (1.0-10.0) Eosinophils (%) (Auto) 0.0 % (0.0-3.0) Basophils (%) (Auto) 0.9 % (0.0-2.0) Sodium Level 132 MMOL/L (136-145) L Potassium Level 4.2 MMOL/L (3.5-5.1) Chloride Level 93 MMOL/L (98-107) L Carbon Dioxide Level 27 MMOL/L (21-32) Anion Gap 12 mmol/L (5-15) Blood Urea Nitrogen 77 mg/dL (7-18) H Creatinine 6.3 MG/DL (0.55-1.30) H Estimat Glomerular Filtration Rate 8.9 mL/min (>60) Glucose Level 130 MG/DL (74-106) H Calcium Level 9.1 MG/DL (8.5-10.1) Phosphorus Level 4.4 MG/DL (2.5-4.9) Magnesium Level 2.1 MG/DL (1.8-2.4) Total Bilirubin 0.4 MG/DL (0.2-1.0) Gamma Glutamyl Transpeptidase 42 U/L (5-85) Aspartate Amino Transf (AST/SGOT) 15 U/L (15-37) Alanine Aminotransferase (ALT/SGPT) 9 U/L (12-78) L Alkaline Phosphatase 143 U/L (46-116) H Total Protein 6.4 G/DL (6.4-8.2) Albumin 1.9 G/DL (3.4-5.0) L Globulin 4.5 g/dL Albumin/Globulin Ratio 0.4 (1.0-2.7) L Neurologic Exam Objective PHYSICAL EXAMINATION: GENERAL: He is a well-developed and well-nourished, pleasant gentleman, lying in bed, connected to a ventilator via a tracheostomy. HEAD: Normocephalic and atraumatic. EENT: Examination benign. NECK: No neck rigidity was observed. He did have a tracheostomy. NEUROLOGICAL EXAMINATION: MENTAL STATUS EXAMINATION: He was awake and alert. He was oriented to person, place and time. He was able to recall 3/3 words immediately and was able to remember them in 1 and 3 minutes. He was able to remember presidents [employer] through [employer]. His mathematical skills were fair. His visuo-spatial function was preserved. SPEECH: Could not be tested, but he was able to mouth words relatively well. LANGUAGE: He was able to comprehend and express himself relatively well. CRANIAL NERVES EXAMINATION: II: The visual mckeon were intact to confrontation testing. III, IV & : The external ocular movements were full and the pupils 3 mm in diameter, equal, round, regular, and reactive sluggishly to light. V: He had normal facial sensations, and the temporales, masseters, and pterygoids functioned normally. VII: He had normal facial expressions and no facial asymmetry. VIII: Hearing was decreased bilaterally with worse hearing on the left side compared to the right. IX: The palate moved symmetrically on phonation. X: Could not be tested. XI: The sternocleidomastoids and trapezii functioned normally. XII: The tongue was in the midline without any fasciculations or atrophy. MOTOR SYSTEM: The tone was normal in all four extremities. Examination of muscle mass revealed generalized muscle wasting. Examination of power revealed G 5/5 power except for G 4+/5 power in the iliopsoas muscles bilaterally, and G 4/5 in the right ankle and toes. Power in the right upper extremity was limited by pain. Power in the right foot was also limited by pain. SENSORY EXAMINATION: He had intact sensations to light touch. Other sensory modalities could not be tested adequately. REFLEXES: 1+ and bilaterally symmetrical at the biceps, triceps, brachioradialis , and knees, 0 at both ankles. The plantar responses were flexor bilaterally. COORDINATION: He performed well on [id number] testing. STANCE & GAIT: Were deferred. Impression/Recommendations Diagnostic Impression 1. Mr. Gregg Restrepo is a 69-year-old, right-handed, gentleman with past history of multiple medical problems including hypertension, diabetes mellitus, end-stage renal disease for which he is hemodialysis dependent, prior episodes of sepsis, and prior episodes of encephalopathy, who was admitted to [facility] on October 31, 2018. Following that, he has had a stormy hospital course including pneumonia and sepsis, right foot infection, respiratory failure for which he has needed tracheostomy and in addition he has exhibited an alteration in his mental state with some waxing and waning of his mental state. 2. He feels well. He has been more alert. His mood is better. He is in good spirits. The right heel is less painful - and is healing well. The right upper extremity is less swollen and less painful. He has been able to sleep better. He is breathing well but still artificially ventilated. He feels that his strength is stable. The mind is clearer. He is eager to eat. He denies any new neurological symptoms. He has not had PT/OT recently. 3. On neurological examination, at this time, he is fully oriented, his recent memory is normal. He has minimally impaired higher cognitive function. He is able to comprehend and express himself well. He does have mild G 4+/5 weakness in the iliopsoas muscles bilaterally. Power in the right upper extremity was limited by pain. Power in the right foot was also limited by pain. He had globally diminished deep tendon reflexes with loss of ankle jerks, but no definite focal or lateralizing neurological findings. 4. His latest laboratory data on my initial evaluation revealed that he was anemic with a hemoglobin of 10.8 G. His last blood gas performed on 11/14/2018 revealed that he had a pCO2 elevated at 56.4 with a normal pO2 of 88.3 and normal pH of 7.37. His latest chemistry panel revealed that he was mildly hyponatremic with a sodium of 130, and had a chloride of 90. The BUN was elevated at 75, creatinine elevated at 7.4, glucose elevated at 156, Hemoglobin A1c elevated at 6.9%, Alkaline phosphatase elevated at 131, and ProBNP greater than 35,000. His last B12 level on 11/07/2018 was 723. His last folate on was 18.6. His last TSH on 12/06/2018 was 4.82, which is minimally elevated. 5. The CT scan of the brain performed on 11/10/2018 was benign for acute intracranial pathology. 6. The EEG done on 12/08/18 revealed left temporal dysfunction. 7. The patient's history and neurological examination are most consistent with mild multifactorial encephalopathy, which apparently waxes and wanes, but no definite focal neurological dysfunction. His encephalopathy is stable. 8. He tells me that he had a brain bleed many years ago. I did review his imaging done at [facility] a few years ago and he had closed head injuries with subarachnoid and subdural blood in the past. 9. His mood has improved. 10. There has never been a doubt regarding his ability to make decisions regarding his medical care. 11. He is eager to eat again. Recommendations 1. Continue present management. 2. Continue to correct the patient's toxic metabolic imbalances. 3. Mobilize with PT/OT. 4. Consider getting swallowing evaluation so that he can be fed for enjoyment. 5. Observe. Pantera Cool M.D., M.S.P.H. Pantera Cool MD January 13, 2019 18:19
--- NOTE | 2019-01-13 19:15 | Operative Note - Dictated ---
DATE OF OPERATION: 12/22/2018 NOTE: INCOMPLETE DICTATION: PREOPERATIVE DIAGNOSES: 1. 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 2. Rest pain in the right leg. 3. Nonhealing infected heel wound in the right foot. 4. Diabetes mellitus. 5. End-stage renal disease. POSTOPERATIVE DIAGNOSES: 1. 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 2. Rest pain in the right leg. 3. Nonhealing infected heel wound in the right foot. 4. Diabetes mellitus. 5. End-stage renal disease as well as findings below. PROCEDURES: 1. Right common femoral artery antegrade access and introducer sheath placement. 2. Right anterior tibial artery retrograde access and introducer sheath placement. 3. Catheterization via right common femoral artery with the catheter tip in the right dorsalis pedis artery. Gee Salmeron M.D. DR: MARYAM JOB#: [id number] CC:
--- NOTE | 2019-01-13 19:45 | Operative Note - Dictated ---
DATE OF OPERATION: 12/22/2018 PREOPERATIVE DIAGNOSES: 1. 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 2. Rest pain in the right leg. 3. Nonhealing infected wound in the right foot. 4. Diabetes mellitus. 5. End-stage renal disease. POSTOPERATIVE DIAGNOSES: 1. 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 2. Rest pain in the right leg. 3. Nonhealing infected wound in the right foot. 4. Diabetes mellitus. 5. End-stage renal disease as well as findings below. PROCEDURES: 1. Right common femoral artery antegrade access and introducer sheath placement. 2. Catheterization via right common femoral artery with the catheter tip in the right dorsalis pedis artery as well as right peroneal and posterior tibial arteries. 3. Percutaneous atherectomy of the right tibioperoneal trunk ([employer]awkOne). 4. Percutaneous atherectomy of the right peroneal artery ([employer]awkOne). 5. Percutaneous atherectomy of the right posterior tibial artery (HawkOne). 6. Percutaneous atherectomy of the right anterior tibial artery (HawkOne). 7. Percutaneous transluminal balloon angioplasty of right dorsalis pedis artery and anterior tibial artery (tapered NanoCross 1.5 millimeter-2 millimeters x 21 centimeters). 8. Percutaneous transluminal balloon angioplasty ([employer] PEELER) of the right tibioperoneal trunk, peroneal artery, and posterior tibial arteries (tapered NanoCross 1.5 millimeter-2 millimeters x 21 centimeters). 9. Intra-arterial thrombolysis with tPA. 10. Intra-arterial administration of nitroglycerin. 11. Intraoperative ultrasound. 12. Digital subtraction angiography. 13. Supervision and interpretation of angiogram and intervention. SURGEON: Gee Salmeron M.D. ANESTHESIA: General. INDICATION: The patient has extensive multilevel arterial occlusive disease and multiple comorbidities requiring staged intervention and has now returned for the final intervention the tibial vessels. INTRAOPERATIVE FINDINGS/INTERPRETATION OF THE RESULTS: The inflow from the right external iliac artery is patent. The right common femoral, profunda femoral, and superficial femoral artery including the recently stented segments are widely patent. The popliteal artery is patent. The anterior tibial artery is patent, however, there is a stenosis where access was placed recently in the distal anterior tibial artery for retrograde treatment of the popliteal lesion beyond which the dorsalis pedis artery is patent. The tibioperoneal trunk has a severe stenosis as does the peroneal artery and the posterior tibial artery is occluded beyond its origin reconstituting just above the ankle and in the right plantar vessels. Post intervention, the treated segments are not patent and the patient has excellent Doppler signal in the foot at the end of the procedure. PROCEDURE IN DETAIL: With the patient in supine position and after the groins were shaved, prepped, and draped in usual sterile fashion, skin was incised with local anesthetic and the right common femoral artery accessed with a micropuncture needle using a single wall puncture modified Seldinger technique, the wire was advanced in the antegrade fashion into the vessel and the needle removed. Over wire, the micropuncture introducer sheath and dilator were placed coaxially into the vessel and the wire and dilator were removed where clear arterial backbleeding noted from the sheath, which was flushed with heparinized saline and then a wire was inserted and followed into the superficial femoral artery over which the sheath was exchanged for a regular 6-E[place] sheath in a standard fashion and the patient given a bolus of intravenous heparin, which was allowed to circulate adequately. The PTT was monitored throughout the procedure for adequate anticoagulation. Using different wires and catheters to cross the lesions to be treated with reentry into the reconstituted distal segment confirmed to be in the true lumen with the injection of contrast through the crossing catheter, a 0.014 wire was then placed over which the various intervention catheters listed above were placed and the different segments treated in the standard fashion and a completion angiogram performed after additional injection of tPA and nitroglycerin were also given to optimize the distal flow. The completion angiogram showed the above findings and once the PTT had returned to normal range, the sheath was removed and manual compression was maintained for hemostasis. Pressure dressing was applied. The patient tolerated the procedure well and was transferred out of the room in stable condition. ESTIMATED BLOOD LOSS: Minimal. COMPLICATIONS: None. TOTAL FLUOROSCOPY TIME: 975 seconds. TOTAL CONTRAST: 70 mL. Gee Salmeron M.D. DR: MARYAM JOB#: [id number] CC: Gee Salmeron M.D.; Fax#: [phone]
[2019-01-13 20:00] VITALS: BP 133/72
[2019-01-13] MEDS: Epoetin Alfa-EPBX(ESRD on dialysis)10,000 unit/ml vial SUBQ SCH (20:57)
[2019-01-14] VITALS: BP 142/68
--- NOTE | 2019-01-14 00:45 | Progress Note ---
DATE: 01/13/2019 SUBJECTIVE: The patient's mental condition is unchanged since yesterday. He felt better, less depressed. Sleeping is improved. Physically, he is improving. He stated that he has a good birthday. His heel is improving. MENTAL STATUS EXAMINATION: Alert, oriented x4. His mood is dysphoric. Affect is constricted, congruent with mood. Thought process is concrete. Thought content, no suicidal or homicidal ideations. ASSESSMENT: Major depressive disorder, anxiety disorder. PLAN: 1. The patient will be continued on Celexa. 2. Continue the Remeron. 3. Provide the patient with reality orientation and supportive therapy. Jeffrey Lala M.D. DR: BRITANY JOB#: [id number] CC:
[2019-01-14] MEDS: NovoLOG Insulin Flexpen SUBQ SCH ×5 (02:05→23:45)
[2019-01-14 04:00] VITALS: BP 144/78
[2019-01-14 05:41] LABS: BASOPHILS % (AUTO) 0.6 % (0.0-2.0); HEMATOCRIT 27.5 % (42.0-52.0); HEMOGLOBIN 8.5 G/DL (14.2-18.0); LYMPHOCYTES % (AUTO) 14.4 % (20.0-45.0); MEAN CORPUSCULAR VOLUME 80 FL (80-99); MONOCYTES % (AUTO) 7.3 % (1.0-10.0); NEUTROPHILS % (AUTO) 77.7 % (45.0-75.0); PLATELET COUNT 197 K/UL (150-450); RED BLOOD COUNT 3.42 M/UL (4.70-6.10); RED CELL DISTRIBUTION WIDTH 16.4 % (11.6-14.8); WHITE BLOOD COUNT 7.5 K/UL (4.8-10.8)
[2019-01-14 06:00] LABS: ALANINE AMINOTRANSFERASE 8 U/L (12-78); ALBUMIN 1.9 G/DL (3.4-5.0); ALBUMIN/GLOBULIN RATIO 0.4 (1.0-2.7); ALKALINE PHOSPHATASE 136 U/L (46-116); ANION GAP 10 mmol/L (5-15); ASPARTATE AMINO TRANSFERASE 15 U/L (15-37); BILIRUBIN,TOTAL 0.4 MG/DL (0.2-1.0); BLOOD UREA NITROGEN 60 mg/dL (7-18); CALCIUM 8.9 MG/DL (8.5-10.1); CARBON DIOXIDE 27 MMOL/L (21-32); CHLORIDE 96 MMOL/L (98-107); CREATININE 5.2 MG/DL (0.55-1.30); POTASSIUM 4.1 MMOL/L (3.5-5.1); SODIUM 133 MMOL/L (136-145)
[2019-01-14 08:00] VITALS: BP 155/81
[2019-01-14] MEDS: Eliquis 2.5mg tablet GT SCH ×2 (09:12→17:25)
--- NOTE | 2019-01-14 10:15 | Cardiac Electrophysiology PN ---
Assessment/Plan Assessment/Plan 1. Troponin leak due to renal failure. No CP or SOB. Nl EF 2. Hx of CABG. No CP on Coreg, aspirin and Lipitor 3. NSVT in setting of old NM and CABG. EF 55%. Continue Coreg 4. CHF and right pleural effusion. On hemodialysis. S/P Thoracentesis 5. S/P Right sided [employer] DDD pacemaker with Nl Fx. 6. End-stage renal disease, on hemodialysis per Dr. Stevens 7. Multilevel AOD LE's with non-healing Right foot ulcer. Had abdominal angiogram per Dr Salmeron Antibiotic per Dr. Landis. FU by Dr. Huizar S/P peripheral intervention by Dr. Salmeron 12/22/18 Right foot on Wound-Vac 8. History of liver transplant on Prograf 9. Respiratory failure, S/P tracheostomy. 10. Pleural effusion. s/p 2300 cc thoracentesis 01/01/19 11. Dysphagia, S/P PEG DW RN Subjective Subjective Ne events. Alert in NAD.Had 3 liters HD yesterday Objective Last 24 Hour Vital Signs Date Time Temp Pulse Resp B/P (MAP) Pulse Ox O2 Delivery O2 Flow Rate FiO2 01/14/19 09:05 99 01/14/19 09:05 81 33 40 01/14/19 08:00 40 01/14/19 08:00 Mechanical Ventilator 01/14/19 06:42 85 25 40 01/14/19 05:06 77 24 40 01/14/19 04:00 98.2 86 27 144/78 (100) 99 01/14/19 04:00 40 01/14/19 04:00 80 01/14/19 04:00 Mechanical Ventilator 01/14/19 02:43 83 22 40 01/14/19 01:29 79 26 40 01/14/19 00:00 Mechanical Ventilator 01/14/19 00:00 98.7 87 30 142/68 (92) 99 01/13/19 22:42 85 24 40 01/13/19 20:38 94 27 40 01/13/19 20:00 88 01/13/19 20:00 Mechanical Ventilator 01/13/19 20:00 98.5 89 25 133/72 (92) 100 01/13/19 20:00 40 01/13/19 18:50 83 30 40 01/13/19 16:42 79 30 40 01/13/19 16:00 40 01/13/19 16:00 97.9 90 31 151/97 (115) 99 90 01/13/19 16:00 Mechanical Ventilator 01/13/19 16:00 89 01/13/19 14:42 83 28 40 01/13/19 13:28 97.6 01/13/19 12:37 78 29 40 01/13/19 12:00 97.7 83 28 164/67 (99) 100 01/13/19 12:00 40 01/13/19 12:00 Mechanical Ventilator 01/13/19 11:39 84 01/13/19 10:43 100 01/13/19 10:43 74 29 40 Intake and Output 01/13/19 01/14/19 19:00 07:00 Intake Total 230 ml 250 ml Output Total 9000 ml Balance -8770 ml 250 ml Free Water 60 ml Tube Feeding 170 ml 250 ml Hemodialysis UF 9000 ml # Bowel Movements 3 1 Laboratory Tests Test 01/14/19 04:00 White Blood Count 7.5 K/UL (4.8-10.8) Red Blood Count 3.42 M/UL (4.70-6.10) L Hemoglobin 8.5 G/DL (14.2-18.0) L Hematocrit 27.5 % (42.0-52.0) L Mean Corpuscular Volume 80 FL (80-99) Mean Corpuscular Hemoglobin 25.0 PG (27.0-31.0) L Mean Corpuscular Hemoglobin Concent 31.0 G/DL (32.0-36.0) L Red Cell Distribution Width 16.4 % (11.6-14.8) H Platelet Count 197 K/UL (150-450) Mean Platelet Volume 6.5 FL (6.5-10.1) Neutrophils (%) (Auto) 77.7 % (45.0-75.0) H Lymphocytes (%) (Auto) 14.4 % (20.0-45.0) L Monocytes (%) (Auto) 7.3 % (1.0-10.0) Eosinophils (%) (Auto) 0.0 % (0.0-3.0) Basophils (%) (Auto) 0.6 % (0.0-2.0) Sodium Level 133 MMOL/L (136-145) L Potassium Level 4.1 MMOL/L (3.5-5.1) Chloride Level 96 MMOL/L (98-107) L Carbon Dioxide Level 27 MMOL/L (21-32) Anion Gap 10 mmol/L (5-15) Blood Urea Nitrogen 60 mg/dL (7-18) H Creatinine 5.2 MG/DL (0.55-1.30) H Estimat Glomerular Filtration Rate 11.1 mL/min (>60) Glucose Level 98 MG/DL (74-106) Calcium Level 8.9 MG/DL (8.5-10.1) Total Bilirubin 0.4 MG/DL (0.2-1.0) Aspartate Amino Transf (AST/SGOT) 15 U/L (15-37) Alanine Aminotransferase (ALT/SGPT) 8 U/L (12-78) L Alkaline Phosphatase 136 U/L (46-116) H Total Protein 6.3 G/DL (6.4-8.2) L Albumin 1.9 G/DL (3.4-5.0) L Globulin 4.4 g/dL Albumin/Globulin Ratio 0.4 (1.0-2.7) L Tacrolimus (Prograf) Level Pending Objective HEAD AND NECK: No JVD. Tracheostomy intact LUNGS: Clear CARDIOVASCULAR: Irregular S1 and S2 with no gallop. Sternotomy is intact Pacemaker in the right subclavian ABDOMEN: Soft. PEG in place EXTREMITIES: 1+ pitting edema. Right heel in dressing and connected to WoundVac Shivam Sharpe MD January 14, 2019 10:15
--- NOTE | 2019-01-14 11:43 | General Progress Note ---
Assessment/Plan Problem List: (1) Transplant ICD Codes: Z94.9 - Transplanted organ and tissue status, unspecified SNOMED: 542539706 (2) HTN (hypertension) ICD Codes: I10 - Essential (primary) hypertension SNOMED: 43125145 (3) Pacemaker ICD Codes: Z95.0 - Presence of cardiac pacemaker SNOMED: 719109043 (4) CHF (congestive heart failure) ICD Codes: I50.9 - Heart failure, unspecified SNOMED: 42300354 (5) DM (diabetes mellitus) ICD Codes: E11.9 - Type 2 diabetes mellitus without complications SNOMED: 37918849 (6) Foot ulcer ICD Codes: L97.509 - Non-pressure chronic ulcer of other part of unspecified foot with unspecified severity SNOMED: 64266170 Qualifiers: Qualified Codes: L97.511 - Non-pressure chronic ulcer of other part of right foot limited to breakdown of skin (7) ESRD (end stage renal disease) on dialysis ICD Codes: N18.6 - End stage renal disease; Z99.2 - Dependence on renal dialysis SNOMED: 701987596 Assessment/Plan: History of liver transplant, currently on Prograf History of cholecystectomy status post tracheostomy and PEG Infected G-tube site, fu ID recs C. difficile negative x 2 would care cx >> GRAM NEGATIVE BACILLUS CT AP reviewed, Moderate to large right pleural effusion. Moderate Ascites. s/p Paracentesis yielding 4.1 yield, r/o SBP >> negative for malignant cells Status post right thoracentesis yielding 2.1 L >> negative for malignant cells Continue G-tube feedings GT site care BID/prn topical abx around GT site per ID HD per nephro cont tacrolimus prn transfusions ppi zofran prn Imodium prn, Lomotil for persistent diarrhea follow labs supportive care outpatient Hep C tx, pending RNA PCR fu tacrolimus levels monitor LFTS Subjective ROS Limited/Unobtainable: No Allergies: Coded Allergies: CEPHALEXIN (Unverified Allergy, Unknown, 02/24/14) SULFAMETHOXAZOLE (Unverified Allergy, Unknown, 02/24/14) TRIMETHOPRIM (Unverified Allergy, Unknown, 02/24/14) Subjective he pulled his NGT again Objective Last 24 Hour Vital Signs Date Time Temp Pulse Resp B/P (MAP) Pulse Ox O2 Delivery O2 Flow Rate FiO2 01/14/19 10:37 91 29 40 01/14/19 09:05 99 01/14/19 09:05 81 33 40 01/14/19 08:00 40 01/14/19 08:00 Mechanical Ventilator 01/14/19 08:00 98.2 92 20 155/81 (105) 98 01/14/19 07:31 100 01/14/19 06:42 85 25 40 01/14/19 05:06 77 24 40 01/14/19 04:00 98.2 86 27 144/78 (100) 99 01/14/19 04:00 40 01/14/19 04:00 80 01/14/19 04:00 Mechanical Ventilator 01/14/19 02:43 83 22 40 01/14/19 01:29 79 26 40 01/14/19 00:00 Mechanical Ventilator 01/14/19 00:00 98.7 87 30 142/68 (92) 99 01/13/19 22:42 85 24 40 01/13/19 20:38 94 27 40 01/13/19 20:00 88 01/13/19 20:00 Mechanical Ventilator 01/13/19 20:00 98.5 89 25 133/72 (92) 100 01/13/19 20:00 40 01/13/19 18:50 83 30 40 01/13/19 16:42 79 30 40 01/13/19 16:00 40 01/13/19 16:00 97.9 90 31 151/97 (115) 99 90 01/13/19 16:00 Mechanical Ventilator 01/13/19 16:00 89 01/13/19 14:42 83 28 40 01/13/19 13:28 97.6 01/13/19 12:37 78 29 40 01/13/19 12:00 97.7 83 28 164/67 (99) 100 01/13/19 12:00 40 01/13/19 12:00 Mechanical Ventilator Intake and Output 01/13/19 01/14/19 19:00 07:00 Intake Total 230 ml 280 ml Output Total 9000 ml Balance -8770 ml 280 ml Free Water 60 ml Tube Feeding 170 ml 280 ml Hemodialysis UF 9000 ml # Bowel Movements 3 1 Laboratory Tests 01/14/19 04:00: White Blood Count 7.5, Red Blood Count 3.42L, Hemoglobin 8.5L, Hematocrit 27.5L , Mean Corpuscular Volume 80, Mean Corpuscular Hemoglobin 25.0L, Mean Corpuscular Hemoglobin Concent 31.0L, Red Cell Distribution Width 16.4H, Platelet Count 197, Mean Platelet Volume 6.5, Neutrophils (%) (Auto) 77.7H, Lymphocytes (%) (Auto) 14.4L, Monocytes (%) (Auto) 7.3, Eosinophils (%) (Auto) 0.0, Basophils (%) (Auto) 0.6, Sodium Level 133L, Potassium Level 4.1, Chloride Level 96L, Carbon Dioxide Level 27, Anion Gap 10, Blood Urea Nitrogen 60H, Creatinine 5.2H, Estimat Glomerular Filtration Rate 11.1, Glucose Level 98, Calcium Level 8.9, Total Bilirubin 0.4, Aspartate Amino Transf (AST/SGOT) 15, Alanine Aminotransferase (ALT/SGPT) 8L, Alkaline Phosphatase 136H, Total Protein 6.3L, Albumin 1.9L, Globulin 4.4, Albumin/Globulin Ratio 0.4L, Tacrolimus (Prograf) Level [Pending] Height (Feet): 5 Height (Inches): 4.00 Weight (Pounds): 216 General Appearance: alert EENT: TMs normal Neck: supple Cardiovascular: normal rate Respiratory/Chest: decreased breath sounds Abdomen: normal bowel sounds, non tender, soft Extremities: non-tender Jorge Escalera MD January 14, 2019 11:43
[2019-01-14 12:00] VITALS: BP 156/90
--- NOTE | 2019-01-14 12:10 | Hematology/Onc Progress Note ---
Assessment/Plan Assessment/Plan Assessment and Recs: # Anemia of chronic disease due to underlying chronic medical issues, range has been 8-11 --> ferritin is 633, tibc is low --> No evidence of hemolysis is noted, peripheral smear has been reviewed. --> Epogen can be consider if hgb downtrends --> Medications have been reviewed --> evaluate with Gi team prn --> transfuse if hgb is < 7 (will trend CBC daily) --> hgb trend 11.2-->10.9-->10.8-->10.7-->10.2-->9.7-->9.7-->8.5-->9-->9.2-->8.4 -->7.7-->8.8-->9.1-->8.6 --> s/p transfusion on 01/06 # Failure to thrive is likely related to poor overall status, poor functional status --> with multiple decub ulcerations that are noted, seen by id/surgery --> s/p trach as well --> cea is wnl # Acute non-occlusive dvt, right extremity ultrasound (acute non-occlusive DVT in internal jugular) --> currently is on eliquis 2.5mg po bid --> do not recommend a SVC filter --> given prior bleeding risk, hold off on heparin gtt --> vasc surgeon is aware, seek recs # Coagulopathy likely secondary to decreased Vitk dependent cofactors (high INR , PT) --> monitor closely for any evidence of bleeding. Currently is on eliquis --> VIT K on prn basis sq can be administered --> recently has improved inr 1.2-->1.1-->1.2 # Acute respiratory failure is now s/p trach to vent --> as per surgery recs # Ground glass opacities present on imaging of lung --> with pleural effusions, s/p drainage at this time --> no evidence for malignancy is noted --> as per pulm/id # Pleural effusion --> s/p thoracentesis, s/p paracentesis 12/31 --> no evidence of malignancy # Hyperkalemia --> kayxelate on prn basis per renal --> monitor K # Renal failure --> per renal recs, appreciated --> getting hd as per schedule # Altered level of consciousness --> currently as per baseline --> neuro eval prn # PAD off heparin gtt and now on eliquis --> per vasc and cards --> 12/22 s/p right leg angiogram with intervention --> on eliquis, continue # Gt tube cellulitis, on topical abx as per id around site The timing of this note does not necessarily reflect the time of the patient was seen. Greatly appreciate consultation! Subjective Cardiovascular: Denies: no symptoms, chest pain, edema, irregular heart rate, lightheadedness, palpitations, syncope, other Respiratory: Denies: no symptoms, cough, shortness of breath, SOB with excertion, SOB at rest, sputum, wheezing, other Gastrointestinal/Abdominal: Denies: no symptoms, abdomen distended, abdominal pain, black stools, tarry stools, blood in stool, constipated, diarrhea, difficulty swallowing, nausea, poor appetite, poor fluid intake, rectal bleeding , vomiting, other Genitourinary: Denies: no symptoms, burning, discharge, frequency, flank pain, hematuria, incontinence, pain, urgency, other 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: Denies: no symptoms, anxiety, depressed, emotional problems, headache, numbness, paresthesia, pre-existing deficit, seizure, tingling, tremors, weakness, other Endocrine: Denies: no symptoms, excessive sweating, flushing, intolerance to cold, intolerance to heat, increased hunger, increased thirst, increased urine, unexplained weight gain, unexplained weight loss, other Allergies: Coded Allergies: CEPHALEXIN (Unverified Allergy, Unknown, 02/24/14) SULFAMETHOXAZOLE (Unverified Allergy, Unknown, 02/24/14) TRIMETHOPRIM (Unverified Allergy, Unknown, 02/24/14) Subjective 11/30: comfortable, on abx, no complaints, on t-piece 12/01: to have hd done potentially tomorrow, is more alert/awake 12/02: no major bleeding, hgb remains approx 11, no changes 12/03: no events, breathing mildly better, hgb is improved 12/04: on vent/trach, no major changes, sr ekg 12/10: small amount of secretions, on trach/vent, no issues otherwise 12/11: no major issues, no complaints, labs reviewed, no sig changes 12/13: no events to report, no fevers or chills, awaiting placement 12/14: no changes, no major events to report, no fevers or chills 12/15: pending placement, getting gt feeds and hd as per renal 12/16: labs have been reviewed, cbc noted, no changes 12/17: no events, no fevers, no cp, hgb remains stable 12/18: restarted on heparin gtt, seen by pulm, cards 12/20: continues to be on heparin gtt, no bleeding reported, no f/c 12/21: hd for today, no fevers or chils, off hep gtt on eliquis 12/22: to get hd tomorrow, today is s/p right leg angiogram with intervention 12/23: hgb remins stable, no fevers or chills reported 12/24: no events, no bleeding, vitals reviewed, cbc stable 12/25: no events, no bleeding, on vent, hgb 9 12/27: no changes, no f/c, no night swearts, seen with other providers 12/28: right extremity ultrasound (acute non-occlusive DVT in internal jugular, on eliquis 12/29: no events, no night sweats, seen by gi, no bleeding 12/30: cbc has been reviewed, no f/c, no night sweats reported 12/31: no events, eliquis is on hold cbc has been reviewed, bp elevated 01/01: no fevers or chills, cbc reviewed, hgb 9.3, getting HD 01/02: no events noted, getting norco for pain, hgb stable 01/04: not events to report, no bleeding, refusing ivl at this time, cbc reviewed 01/05: no fevers or chills noted, s/p trach/vent, no f/c, no chills noted 01/06: no events, to get 1 unit prbc today, renal seen, on abx 01/07: hd for tomorrow, seen by renal, no events, cbc reviewed 01/08: getting Hd today, seen by renal, no major events, in sr 01/10: no events to report, to get hd tomorrow, hgb stable 01/11: on vent/trach, gtube, tolerating treatment well, hd today 01/12: remains nonverbal, stable, on vent/trach, no fc 01/13: no events noted, cbc has been reviewed 01/14: thora and para fluid still neg for malignancy, no bleeding Objective Objective Current Medications Medications (Trade) Dose Ordered Sig/Aleks Route PRN Reason Start Time Stop Time Status Last Admin Dose Admin Acetaminophen (Tylenol) 650 mg Q6H PRN GT Mild Pain/Temp > 100.5 12/21/18 16:00 01/20/19 15:59 01/13/19 22:50 Apixaban (Eliquis) 2.5 mg BID GT 01/01/19 21:00 01/31/19 20:59 01/14/19 09:12 Clotrimazole (Lotrimin) 1 applic DAILY TOPIC 01/08/19 18:00 02/07/19 17:59 01/14/19 09:12 Collagenase (Santyl) 1 applic DAILY TOPIC 12/29/18 09:00 01/28/19 08:59 01/14/19 09:12 Dextrose (Dextrose 50%) 25 ml Q30M PRN IV Hypoglycemia 12/31/18 23:00 01/30/19 22:59 Dextrose (Dextrose 50%) 50 ml Q30M PRN IV Hypoglycemia 12/31/18 23:00 01/30/19 22:59 Epoetin Vini (Epoetin Vini(ESRD on dialysis)) 10,000 unit FRI-FRI-FRI SUBQ 01/06/19 21:00 02/05/19 20:59 01/13/19 20:57 Escitalopram Oxalate (Lexapro) 20 mg DAILY GT 01/05/19 09:00 02/04/19 08:59 01/14/19 09:12 Hydralazine HCl (Apresoline) 25 mg Q4H PRN GT bp over 160 syst 01/06/19 15:00 02/05/19 14:59 Insulin Aspart (NovoLOG) EVERY 6 HOURS SUBQ 01/01/19 00:00 01/31/19 00:00 01/14/19 11:46 Loperamide HCl (Imodium) 2 mg Q6H PRN GT Diarrhea 01/07/19 11:00 02/06/19 10:59 01/14/19 02:01 Metoclopramide HCl (Reglan) 5 mg Q6H PRN IVP Nausea & Vomiting 12/30/18 17:30 01/29/19 17:29 01/05/19 20:45 Mirtazapine (Remeron) 15 mg BEDTIME GT 12/21/18 21:00 01/20/19 20:59 01/13/19 20:50 Tacrolimus (Prograf) 2 mg MoWeFr@0000,1200 ORAL 12/28/18 00:00 01/27/19 00:00 01/13/19 12:50 Tacrolimus (Prograf) 2 mg SuTuThSa@0900,2100 ORAL 12/26/18 21:00 01/25/19 20:59 01/14/19 09:12 Last 24 Hour Vital Signs Date Time Temp Pulse Resp B/P (MAP) Pulse Ox O2 Delivery O2 Flow Rate FiO2 01/14/19 10:37 91 29 40 01/14/19 09:05 99 01/14/19 09:05 81 33 40 01/14/19 08:00 40 01/14/19 08:00 Mechanical Ventilator 01/14/19 08:00 98.2 92 20 155/81 (105) 98 01/14/19 07:31 100 01/14/19 06:42 85 25 40 01/14/19 05:06 77 24 40 01/14/19 04:00 98.2 86 27 144/78 (100) 99 01/14/19 04:00 40 01/14/19 04:00 80 01/14/19 04:00 Mechanical Ventilator 01/14/19 02:43 83 22 40 01/14/19 01:29 79 26 40 01/14/19 00:00 Mechanical Ventilator 01/14/19 00:00 98.7 87 30 142/68 (92) 99 01/13/19 22:42 85 24 40 01/13/19 20:38 94 27 40 01/13/19 20:00 88 01/13/19 20:00 Mechanical Ventilator 01/13/19 20:00 98.5 89 25 133/72 (92) 100 01/13/19 20:00 40 01/13/19 18:50 83 30 40 01/13/19 16:42 79 30 40 01/13/19 16:00 40 01/13/19 16:00 97.9 90 31 151/97 (115) 99 90 01/13/19 16:00 Mechanical Ventilator 01/13/19 16:00 89 01/13/19 14:42 83 28 40 01/13/19 13:28 97.6 01/13/19 12:37 78 29 40 01/13/19 12:00 97.7 83 28 164/67 (99) 100 01/13/19 12:00 40 01/13/19 12:00 Mechanical Ventilator 01/13/19 11:39 84 01/13/19 10:43 100 01/13/19 10:43 74 29 40 01/13/19 09:00 40 01/13/19 08:40 79 28 40 01/13/19 08:00 77 01/13/19 08:00 Mechanical Ventilator 01/13/19 08:00 97.6 79 24 128/74 (92) 100 01/13/19 07:15 80 27 40 01/13/19 05:02 72 24 40 40 01/13/19 04:00 85 01/13/19 04:00 96.8 82 26 130/74 (92) 100 01/13/19 04:00 40 01/13/19 04:00 Mechanical Ventilator 01/13/19 02:51 78 22 40 40 01/13/19 01:06 72 24 40 40 01/13/19 00:00 Mechanical Ventilator 01/13/19 00:00 96 01/13/19 00:00 97.7 97 22 128/82 (97) 100 01/13/19 00:00 40 01/12/19 23:22 76 22 40 40 01/12/19 20:39 78 26 40 40 01/12/19 20:00 83 01/12/19 20:00 40 01/12/19 20:00 98.2 82 24 127/61 (83) 100 01/12/19 20:00 Mechanical Ventilator 01/12/19 19:03 85 29 40 40 01/12/19 16:44 75 26 40 01/12/19 16:00 40 01/12/19 16:00 Mechanical Ventilator 01/12/19 16:00 98.2 76 21 102/69 (80) 100 01/12/19 15:18 78 01/12/19 15:02 83 24 40 01/12/19 12:30 81 23 40 Intake and Output 01/13/19 01/14/19 19:00 07:00 Intake Total 230 ml 280 ml Output Total 9000 ml Balance -8770 ml 280 ml Free Water 60 ml Tube Feeding 170 ml 280 ml Hemodialysis UF 9000 ml # Bowel Movements 3 1 Labs Test 01/13/19 03:35 01/14/19 04:00 White Blood Count 8.8 K/UL (4.8-10.8) 7.5 K/UL (4.8-10.8) Red Blood Count 3.48 M/UL (4.70-6.10) 3.42 M/UL (4.70-6.10) Hemoglobin 8.7 G/DL (14.2-18.0) 8.5 G/DL (14.2-18.0) Hematocrit 27.9 % (42.0-52.0) 27.5 % (42.0-52.0) Mean Corpuscular Volume 80 FL (80-99) 80 FL (80-99) Mean Corpuscular Hemoglobin 25.2 PG (27.0-31.0) 25.0 PG (27.0-31.0) Mean Corpuscular Hemoglobin Concent 31.3 G/DL (32.0-36.0) 31.0 G/DL (32.0-36.0) Red Cell Distribution Width 16.4 % (11.6-14.8) 16.4 % (11.6-14.8) Platelet Count 191 K/UL (150-450) 197 K/UL (150-450) Mean Platelet Volume 6.7 FL (6.5-10.1) 6.5 FL (6.5-10.1) Neutrophils (%) (Auto) 80.7 % (45.0-75.0) 77.7 % (45.0-75.0) Lymphocytes (%) (Auto) 10.9 % (20.0-45.0) 14.4 % (20.0-45.0) Monocytes (%) (Auto) 7.5 % (1.0-10.0) 7.3 % (1.0-10.0) Eosinophils (%) (Auto) 0.0 % (0.0-3.0) 0.0 % (0.0-3.0) Basophils (%) (Auto) 0.9 % (0.0-2.0) 0.6 % (0.0-2.0) Sodium Level 132 MMOL/L (136-145) 133 MMOL/L (136-145) Potassium Level 4.2 MMOL/L (3.5-5.1) 4.1 MMOL/L (3.5-5.1) Chloride Level 93 MMOL/L (98-107) 96 MMOL/L (98-107) Carbon Dioxide Level 27 MMOL/L (21-32) 27 MMOL/L (21-32) Anion Gap 12 mmol/L (5-15) 10 mmol/L (5-15) Blood Urea Nitrogen 77 mg/dL (7-18) 60 mg/dL (7-18) Creatinine 6.3 MG/DL (0.55-1.30) 5.2 MG/DL (0.55-1.30) Estimat Glomerular Filtration Rate 8.9 mL/min (>60) 11.1 mL/min (>60) Glucose Level 130 MG/DL (74-106) 98 MG/DL (74-106) Calcium Level 9.1 MG/DL (8.5-10.1) 8.9 MG/DL (8.5-10.1) Phosphorus Level 4.4 MG/DL (2.5-4.9) Magnesium Level 2.1 MG/DL (1.8-2.4) Total Bilirubin 0.4 MG/DL (0.2-1.0) 0.4 MG/DL (0.2-1.0) Gamma Glutamyl Transpeptidase 42 U/L (5-85) Aspartate Amino Transf (AST/SGOT) 15 U/L (15-37) 15 U/L (15-37) Alanine Aminotransferase (ALT/SGPT) 9 U/L (12-78) 8 U/L (12-78) Alkaline Phosphatase 143 U/L (46-116) 136 U/L (46-116) Total Protein 6.4 G/DL (6.4-8.2) 6.3 G/DL (6.4-8.2) Albumin 1.9 G/DL (3.4-5.0) 1.9 G/DL (3.4-5.0) Globulin 4.5 g/dL 4.4 g/dL Albumin/Globulin Ratio 0.4 (1.0-2.7) 0.4 (1.0-2.7) Height (Feet): 5 Height (Inches): 4.00 Weight (Pounds): 216 Objective PE General Appearance: mild distress, moderate distress Lines, tubes and drains: peripheral HEENT: EOMI, ++ thrush, tonsils swollen ++trach Neck: normal inspection Respiratory/Chest: decreased breath sounds, accessory muscle use Cardiovascular/Chest: tachycardia Abdomen: soft, no organomegaly, no mass, ++ peg Extremities: other Skin Exam: warm/dry, rash Neurologic: alert, responsive Zacarias Khoury MD January 14, 2019 12:10
--- NOTE | 2019-01-14 12:27 | Nephrology Progress Note ---
Assessment/Plan Problem List: (1) ESRD (end stage renal disease) on dialysis (2) Foot ulcer (3) CHF (congestive heart failure) Assessment: Ej Fx 20 % (4) Pacemaker (5) Acute respiratory failure Assessment: with Co2 retention (6) G-tube site cellulitis Assessment ESRD with high K and SOB on admit Foot ulcer, likely infected High Troponin likely NSTMI Pacer , Pleural effusion s/p CABGS s/p Liver transplant Plan dialysis next 01/15 labs before HD noted BP low- improved on midodrine per consultants, GI GT site infection, topical antibiotic Neuro note appreciated placement in process vascular esteban regarding heel ulcer per Dr Mcgill pain med change to dilaudid GT Now has tracheostomy and PEG Adjust BP meds add nitro paste TID Antibiotics by ID per cardio and ID Podiatry and Vascular surgical fu ? DC planning? Subjective ROS Limited/Unobtainable: No Objective Objective Last 24 Hour Vital Signs Date Time Temp Pulse Resp B/P (MAP) Pulse Ox O2 Delivery O2 Flow Rate FiO2 01/14/19 10:37 91 29 40 01/14/19 09:05 99 01/14/19 09:05 81 33 40 01/14/19 08:00 40 01/14/19 08:00 Mechanical Ventilator 01/14/19 08:00 98.2 92 20 155/81 (105) 98 01/14/19 07:31 100 01/14/19 06:42 85 25 40 01/14/19 05:06 77 24 40 01/14/19 04:00 98.2 86 27 144/78 (100) 99 01/14/19 04:00 40 01/14/19 04:00 80 01/14/19 04:00 Mechanical Ventilator 01/14/19 02:43 83 22 40 01/14/19 01:29 79 26 40 01/14/19 00:00 Mechanical Ventilator 01/14/19 00:00 98.7 87 30 142/68 (92) 99 01/13/19 22:42 85 24 40 01/13/19 20:38 94 27 40 01/13/19 20:00 88 01/13/19 20:00 Mechanical Ventilator 01/13/19 20:00 98.5 89 25 133/72 (92) 100 01/13/19 20:00 40 01/13/19 18:50 83 30 40 01/13/19 16:42 79 30 40 01/13/19 16:00 40 01/13/19 16:00 97.9 90 31 151/97 (115) 99 90 01/13/19 16:00 Mechanical Ventilator 01/13/19 16:00 89 01/13/19 14:42 83 28 40 01/13/19 13:28 97.6 01/13/19 12:37 78 29 40 Intake and Output 01/13/19 01/14/19 19:00 07:00 Intake Total 230 ml 280 ml Output Total 9000 ml Balance -8770 ml 280 ml Free Water 60 ml Tube Feeding 170 ml 280 ml Hemodialysis UF 9000 ml # Bowel Movements 3 1 Laboratory Tests 01/14/19 04:00: White Blood Count 7.5, Red Blood Count 3.42L, Hemoglobin 8.5L, Hematocrit 27.5L , Mean Corpuscular Volume 80, Mean Corpuscular Hemoglobin 25.0L, Mean Corpuscular Hemoglobin Concent 31.0L, Red Cell Distribution Width 16.4H, Platelet Count 197, Mean Platelet Volume 6.5, Neutrophils (%) (Auto) 77.7H, Lymphocytes (%) (Auto) 14.4L, Monocytes (%) (Auto) 7.3, Eosinophils (%) (Auto) 0.0, Basophils (%) (Auto) 0.6, Sodium Level 133L, Potassium Level 4.1, Chloride Level 96L, Carbon Dioxide Level 27, Anion Gap 10, Blood Urea Nitrogen 60H, Creatinine 5.2H, Estimat Glomerular Filtration Rate 11.1, Glucose Level 98, Calcium Level 8.9, Total Bilirubin 0.4, Aspartate Amino Transf (AST/SGOT) 15, Alanine Aminotransferase (ALT/SGPT) 8L, Alkaline Phosphatase 136H, Total Protein 6.3L, Albumin 1.9L, Globulin 4.4, Albumin/Globulin Ratio 0.4L, Tacrolimus (Prograf) Level [Pending] Height (Feet): 5 Height (Inches): 4.00 Weight (Pounds): 216 General Appearance: no apparent distress EENT: other - trach Cardiovascular: normal rate Respiratory/Chest: decreased breath sounds Abdomen: other - PEG Objective no other change Nakul Stevens MD January 14, 2019 12:27
--- NOTE | 2019-01-14 12:37 | Diagnostic Imaging Report ---
Indication: Dyspnea Technique: One view of the chest Comparison: none Findings: Right hydropneumothorax is again demonstrated, appears unchanged in size, but contains more fluid and less gas than previously. Incompletely expanded right upper lobe is again demonstrated. Interstitial congestion is unchanged. Cardiomegaly is unchanged. Small amount of pleural fluid on the left is unchanged Tracheostomy, right chest pacemaker, median sternotomy sutures, left atrial appendage clip are all again demonstrated. There is some Impression: Interim partial reaccumulation of fluid within previously demonstrated ex vacuo hydropneumothorax, since previous study of 01/02/2019 Interstitial edema, small left pleural effusion, similar to previous exam Cardiomegaly Other stable findings as described
--- NOTE | 2019-01-14 15:04 | General Progress Note ---
Assessment/Plan Assessment/Plan: #Right heel diabetic foot ulcer without osteomyelitis #PAD #Right IJ DVT -seen by Podiatry and ID -s/p Vanco x 2 weeks during HD -continue Eliquis -Vascular Surgery and Hematology following #Acute Resp hypercapnic failure s/p tracheostomy #Angioedema #Large right pleural effusion # R side trapped lung -continue trach care -Remains vent-dependant, breathing trials ongoing -Right thoracentesis 01/01/19 with 2.3 lt removed. Post procedure CXR with R trapped lung. -continue vent weaning -Pulm follow up #End-stage renal disease, on dialysis M-W- #RUE edema #Anasarca, ascites, scrotal edema, pleural effusion due to hypoalbuminemia -HD with UF per Nephrology -s/p PRBC transfusion during HD #Coronary artery disease -continue ASA, Coreg, atorvastatin -cardiology following #Type 2 DM -ISS #Acute metabolic encephalopathy -continue supportive care -Neurology following #history of chronic HCV infection #history of liver transplant -continue Prograf -GI following #Abdominal distension and ascites s/p therapeutic paracentesis -no nausea, vomiting or tenderness -continue supportive care -GI following -s/p paracentesis 12/31/18 4.1 lt #Dysphagia S/p PEG with PEG site cellulitis -s/p antibiotics per ID and GI -continue local wound care -tolerating tube feeds # FULL CODE Subjective Date patient seen: January 14, 2019 Time patient seen: 12:19 ROS Limited/Unobtainable: Yes Cardiovascular: Denies: chest pain Allergies: Coded Allergies: CEPHALEXIN (Unverified Allergy, Unknown, 02/24/14) SULFAMETHOXAZOLE (Unverified Allergy, Unknown, 02/24/14) TRIMETHOPRIM (Unverified Allergy, Unknown, 02/24/14) Subjective Medicine follow up for acute resp failure, PAD, right heel infected DFU, ESRD, anasarca secondary to hypoalbuminemia, right IJ DVT. S/p 4 liter paracentesis and 2 liter thoracentesis No new complaints. Objective Last 24 Hour Vital Signs Date Time Temp Pulse Resp B/P (MAP) Pulse Ox O2 Delivery O2 Flow Rate FiO2 01/14/19 12:34 81 23 40 01/14/19 12:02 40 01/14/19 12:00 98.0 90 34 156/90 (112) 99 01/14/19 12:00 40 01/14/19 12:00 Mechanical Ventilator 01/14/19 12:00 90 01/14/19 10:37 91 29 40 01/14/19 09:05 99 01/14/19 09:05 81 33 40 01/14/19 09:00 40 01/14/19 08:00 40 01/14/19 08:00 Mechanical Ventilator 01/14/19 08:00 98.2 92 20 155/81 (105) 98 01/14/19 07:31 100 01/14/19 06:42 85 25 40 01/14/19 05:06 77 24 40 01/14/19 04:00 98.2 86 27 144/78 (100) 99 01/14/19 04:00 40 01/14/19 04:00 80 01/14/19 04:00 Mechanical Ventilator 01/14/19 02:43 83 22 40 01/14/19 01:29 79 26 40 01/14/19 00:00 Mechanical Ventilator 01/14/19 00:00 98.7 87 30 142/68 (92) 99 01/13/19 22:42 85 24 40 01/13/19 20:38 94 27 40 01/13/19 20:00 88 01/13/19 20:00 Mechanical Ventilator 01/13/19 20:00 98.5 89 25 133/72 (92) 100 01/13/19 20:00 40 01/13/19 18:50 83 30 40 01/13/19 16:42 79 30 40 01/13/19 16:00 40 01/13/19 16:00 97.9 90 31 151/97 (115) 99 90 01/13/19 16:00 Mechanical Ventilator 01/13/19 16:00 89 Intake and Output 01/13/19 01/14/19 19:00 07:00 Intake Total 230 ml 280 ml Output Total 9000 ml Balance -8770 ml 280 ml Free Water 60 ml Tube Feeding 170 ml 280 ml Hemodialysis UF 9000 ml # Bowel Movements 3 1 Laboratory Tests 01/14/19 04:00: White Blood Count 7.5, Red Blood Count 3.42L, Hemoglobin 8.5L, Hematocrit 27.5L , Mean Corpuscular Volume 80, Mean Corpuscular Hemoglobin 25.0L, Mean Corpuscular Hemoglobin Concent 31.0L, Red Cell Distribution Width 16.4H, Platelet Count 197, Mean Platelet Volume 6.5, Neutrophils (%) (Auto) 77.7H, Lymphocytes (%) (Auto) 14.4L, Monocytes (%) (Auto) 7.3, Eosinophils (%) (Auto) 0.0, Basophils (%) (Auto) 0.6, Sodium Level 133L, Potassium Level 4.1, Chloride Level 96L, Carbon Dioxide Level 27, Anion Gap 10, Blood Urea Nitrogen 60H, Creatinine 5.2H, Estimat Glomerular Filtration Rate 11.1, Glucose Level 98, Calcium Level 8.9, Total Bilirubin 0.4, Aspartate Amino Transf (AST/SGOT) 15, Alanine Aminotransferase (ALT/SGPT) 8L, Alkaline Phosphatase 136H, Total Protein 6.3L, Albumin 1.9L, Globulin 4.4, Albumin/Globulin Ratio 0.4L, Tacrolimus (Prograf) Level [Pending] Height (Feet): 5 Height (Inches): 4.00 Weight (Pounds): 216 General Appearance: alert Neck: supple Cardiovascular: normal rate, regular rhythm Respiratory/Chest: lungs clear, normal breath sounds, no respiratory distress Dennis Branham MD January 14, 2019 15:04
[2019-01-14 16:00] VITALS: BP 164/94
--- NOTE | 2019-01-14 19:04 | Infectious Diseases Prog Note ---
Assessment/Plan Problems: (1) Diarrhea Assessment & Plan: with no infectious etiology so far , and negative stool for C diff toxin , and no pathogens on stool culture , avoid laxatives, monitor clinically , encourage hydration (2) Foot ulcer Assessment & Plan: with MRSA grew out of it in the past, S/P vancomycin treatment with HD for two weeks, had vascular eval with revascularization to the right leg , S/P ulcer resection by dormitory maid . deep ulcer culture grew MRSA and E.coli with diphtheroids , possible colonization , with no evidence of active infection as per discussion with podiatry , no need to be started on antibiotics for now , will continue to monitor clinically and make recommendations as necessary . bone scan ruled out osteomyelitis of the heel before, couldn't do an MRI since on the vent . continue local wound care as per dormitory maid . (3) Thrush, oral Assessment & Plan: continue local nystatin as needed , S/P micafungin for three weeks empirically (4) HCV antibody positive Assessment & Plan: no evidence of active infection, with undetectable viral load , suspect due to previous infection , cleared, S/P liver transplant . (5) DM (diabetes mellitus) Assessment & Plan: recommend tight glycemic control to keep blood glucose between 100-140 (6) CHF (congestive heart failure) Assessment & Plan: on HD , renal is following, monitor daily weight (7) Severe tongue swelling Assessment & Plan: improving , s/p tracheostomy to protect his airway since respiratory status worsened . now improving, pulmonary is following (8) Pleural effusion Assessment & Plan: recurrent on the right, with lung collapse , S/P thoracentesis X 3 now with removal of 2.3 liters of clear fluids on 12/31/18 . await fluids culture and gram stain, with PH and Glucose level . PREVIOUS culture were negative with negative cytology. pulmonary is following (9) Ascites Assessment & Plan: S/P paracentesis with removal of 4.1 liters of fluids, culture so far is negative Assessment/Plan will continue to monitor patient on daily basis and make recommendations as necessary since he is high risk for recurrent infection Subjective Constitutional: Reports: no symptoms HEENT: Reports: no symptoms Respiratory: Reports: no symptoms Breasts: Reports: no symptoms Cardiovascular: Reports: no symptoms Gastrointestinal/Abdominal: Reports: no symptoms Genitourinary: Reports: no symptoms Neurologic: Reports: no symptoms Psychiatric: Reports: no symptoms Skin: Reports: no symptoms Endocrine: Reports: no symptoms Hematologic: Reports: no symptoms Musculoskeletal: Reports: no symptoms Allergies: Coded Allergies: CEPHALEXIN (Unverified Allergy, Unknown, 02/24/14) SULFAMETHOXAZOLE (Unverified Allergy, Unknown, 02/24/14) TRIMETHOPRIM (Unverified Allergy, Unknown, 02/24/14) Subjective he was comfortable, lying in bed, denied any fever or chills, no significant secretions, no SOB . has heel pain at the surgery site with wound VAC in place , but no draining coming out . no diarrhea . Objective Vital Signs Last 24 Hour Vital Signs Date Time Temp Pulse Resp B/P (MAP) Pulse Ox O2 Delivery O2 Flow Rate FiO2 01/14/19 16:49 85 25 40 01/14/19 16:00 40 01/14/19 16:00 Mechanical Ventilator 01/14/19 16:00 82 01/14/19 16:00 98.7 83 27 164/94 (117) 100 01/14/19 14:52 84 26 40 01/14/19 12:34 81 23 40 01/14/19 12:02 40 01/14/19 12:00 98.0 90 34 156/90 (112) 99 01/14/19 12:00 40 01/14/19 12:00 Mechanical Ventilator 01/14/19 12:00 90 01/14/19 10:37 91 29 40 01/14/19 09:05 99 01/14/19 09:05 81 33 40 01/14/19 09:00 40 01/14/19 08:00 40 01/14/19 08:00 Mechanical Ventilator 01/14/19 08:00 98.2 92 20 155/81 (105) 98 01/14/19 07:31 100 01/14/19 06:42 85 25 40 01/14/19 05:06 77 24 40 01/14/19 04:00 98.2 86 27 144/78 (100) 99 01/14/19 04:00 40 01/14/19 04:00 80 01/14/19 04:00 Mechanical Ventilator 01/14/19 02:43 83 22 40 01/14/19 01:29 79 26 40 01/14/19 00:00 Mechanical Ventilator 01/14/19 00:00 98.7 87 30 142/68 (92) 99 01/13/19 22:42 85 24 40 01/13/19 20:38 94 27 40 01/13/19 20:00 88 01/13/19 20:00 Mechanical Ventilator 01/13/19 20:00 98.5 89 25 133/72 (92) 100 01/13/19 20:00 40 Height (Feet): 5 Height (Inches): 4.00 Weight (Pounds): 216 General Appearance: WD/WN, no acute distress HEENT: normocephalic, atraumatic, anicteric, mucous membranes moist, PERRL, EOMI, pharynx normal, supple, no JVD, status post trach Respiratory/Chest: chest wall non-tender, no respiratory distress, no accessory muscle use, decreased breath sounds, crackles/rales Cardiovascular: normal peripheral pulses, normal rate, regular rhythm, no gallop/murmur, no JVD Abdomen: normal bowel sounds, soft, non tender, no organomegaly, non distended , no mass, no scars Genitourinary: normal external genitalia Extremities: no cyanosis, no clubbing Skin: no rash, no lesions, ulcers 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: beater boss 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 normal, no motor/sensory deficits, alert, responsive Lymphatic: no neck adenopathy, no groin adenopathy Musculoskeletal: normal muscle bulk, no effusion Laboratory Tests Test 01/14/19 04:00 White Blood Count 7.5 K/UL (4.8-10.8) Red Blood Count 3.42 M/UL (4.70-6.10) L Hemoglobin 8.5 G/DL (14.2-18.0) L Hematocrit 27.5 % (42.0-52.0) L Mean Corpuscular Volume 80 FL (80-99) Mean Corpuscular Hemoglobin 25.0 PG (27.0-31.0) L Mean Corpuscular Hemoglobin Concent 31.0 G/DL (32.0-36.0) L Red Cell Distribution Width 16.4 % (11.6-14.8) H Platelet Count 197 K/UL (150-450) Mean Platelet Volume 6.5 FL (6.5-10.1) Neutrophils (%) (Auto) 77.7 % (45.0-75.0) H Lymphocytes (%) (Auto) 14.4 % (20.0-45.0) L Monocytes (%) (Auto) 7.3 % (1.0-10.0) Eosinophils (%) (Auto) 0.0 % (0.0-3.0) Basophils (%) (Auto) 0.6 % (0.0-2.0) Sodium Level 133 MMOL/L (136-145) L Potassium Level 4.1 MMOL/L (3.5-5.1) Chloride Level 96 MMOL/L (98-107) L Carbon Dioxide Level 27 MMOL/L (21-32) Anion Gap 10 mmol/L (5-15) Blood Urea Nitrogen 60 mg/dL (7-18) H Creatinine 5.2 MG/DL (0.55-1.30) H Estimat Glomerular Filtration Rate 11.1 mL/min (>60) Glucose Level 98 MG/DL (74-106) Calcium Level 8.9 MG/DL (8.5-10.1) Total Bilirubin 0.4 MG/DL (0.2-1.0) Aspartate Amino Transf (AST/SGOT) 15 U/L (15-37) Alanine Aminotransferase (ALT/SGPT) 8 U/L (12-78) L Alkaline Phosphatase 136 U/L (46-116) H Total Protein 6.3 G/DL (6.4-8.2) L Albumin 1.9 G/DL (3.4-5.0) L Globulin 4.4 g/dL Albumin/Globulin Ratio 0.4 (1.0-2.7) L Tacrolimus (Prograf) Level Pending Current Medications Medications (Trade) Dose Ordered Sig/Aleks Route PRN Reason Start Time Stop Time Status Last Admin Dose Admin Acetaminophen (Tylenol) 650 mg Q6H PRN GT Mild Pain/Temp > 100.5 12/21/18 16:00 01/20/19 15:59 01/13/19 22:50 Apixaban (Eliquis) 2.5 mg BID GT 01/01/19 21:00 01/31/19 20:59 01/14/19 17:25 Clotrimazole (Lotrimin) 1 applic DAILY TOPIC 01/08/19 18:00 02/07/19 17:59 01/14/19 09:12 Collagenase (Santyl) 1 applic DAILY TOPIC 12/29/18 09:00 01/28/19 08:59 01/14/19 09:12 Dextrose (Dextrose 50%) 25 ml Q30M PRN IV Hypoglycemia 12/31/18 23:00 01/30/19 22:59 Dextrose (Dextrose 50%) 50 ml Q30M PRN IV Hypoglycemia 12/31/18 23:00 01/30/19 22:59 Epoetin Vini (Epoetin Vini(ESRD on dialysis)) 10,000 unit SUBQ 01/06/19 21:00 02/05/19 20:59 01/13/19 20:57 Escitalopram Oxalate (Lexapro) 20 mg DAILY GT 01/05/19 09:00 02/04/19 08:59 01/14/19 09:12 Hydralazine HCl (Apresoline) 25 mg Q4H PRN GT bp over 160 syst 01/06/19 15:00 02/05/19 14:59 Insulin Aspart (NovoLOG) EVERY 6 HOURS SUBQ 01/01/19 00:00 01/31/19 00:00 01/14/19 17:26 Loperamide HCl (Imodium) 2 mg Q6H PRN GT Diarrhea 01/07/19 11:00 02/06/19 10:59 01/14/19 02:01 Metoclopramide HCl (Reglan) 5 mg Q6H PRN IVP Nausea & Vomiting 12/30/18 17:30 01/29/19 17:29 01/05/19 20:45 Mirtazapine (Remeron) 15 mg BEDTIME GT 12/21/18 21:00 01/20/19 20:59 01/13/19 20:50 Tacrolimus (Prograf) 2 mg MoWeFr@0000,1200 ORAL 12/28/18 00:00 01/27/19 00:00 01/13/19 12:50 Tacrolimus (Prograf) 2 mg SuTuThSa@0900,2100 ORAL 12/26/18 21:00 01/25/19 20:59 01/14/19 09:12 Francois Landis M.D. January 14, 2019 19:04
--- NOTE | 2019-01-14 19:47 | Neurology Progress Note ---
Interim History Interim History Interim History Mr. Restrepo feels unwell. He is being weaned off the ventilator and feels short of breath. He has been more alert. His mood is better. He is in fair spirits. The right heel is less painful - and is healing well. The right upper extremity is less swollen and less painful. He has been able to sleep better. He is still artificially ventilated. He feels that his strength is stable. The mind is clearer. He is eager to eat. He denies any new neurological symptoms. He has not had PT/OT recently. Review of Systems Neuro Review of Systems Benign. Objective Physical Exam Last Vital Signs Date Time Temp Pulse Resp B/P (MAP) Pulse Ox O2 Delivery O2 Flow Rate FiO2 01/14/19 19:25 84 25 40 01/14/19 16:00 Mechanical Ventilator 01/14/19 16:00 98.7 164/94 (117) 100 Laboratory Tests Test 01/14/19 04:00 White Blood Count 7.5 K/UL (4.8-10.8) Red Blood Count 3.42 M/UL (4.70-6.10) L Hemoglobin 8.5 G/DL (14.2-18.0) L Hematocrit 27.5 % (42.0-52.0) L Mean Corpuscular Volume 80 FL (80-99) Mean Corpuscular Hemoglobin 25.0 PG (27.0-31.0) L Mean Corpuscular Hemoglobin Concent 31.0 G/DL (32.0-36.0) L Red Cell Distribution Width 16.4 % (11.6-14.8) H Platelet Count 197 K/UL (150-450) Mean Platelet Volume 6.5 FL (6.5-10.1) Neutrophils (%) (Auto) 77.7 % (45.0-75.0) H Lymphocytes (%) (Auto) 14.4 % (20.0-45.0) L Monocytes (%) (Auto) 7.3 % (1.0-10.0) Eosinophils (%) (Auto) 0.0 % (0.0-3.0) Basophils (%) (Auto) 0.6 % (0.0-2.0) Sodium Level 133 MMOL/L (136-145) L Potassium Level 4.1 MMOL/L (3.5-5.1) Chloride Level 96 MMOL/L (98-107) L Carbon Dioxide Level 27 MMOL/L (21-32) Anion Gap 10 mmol/L (5-15) Blood Urea Nitrogen 60 mg/dL (7-18) H Creatinine 5.2 MG/DL (0.55-1.30) H Estimat Glomerular Filtration Rate 11.1 mL/min (>60) Glucose Level 98 MG/DL (74-106) Calcium Level 8.9 MG/DL (8.5-10.1) Total Bilirubin 0.4 MG/DL (0.2-1.0) Aspartate Amino Transf (AST/SGOT) 15 U/L (15-37) Alanine Aminotransferase (ALT/SGPT) 8 U/L (12-78) L Alkaline Phosphatase 136 U/L (46-116) H Total Protein 6.3 G/DL (6.4-8.2) L Albumin 1.9 G/DL (3.4-5.0) L Globulin 4.4 g/dL Albumin/Globulin Ratio 0.4 (1.0-2.7) L Tacrolimus (Prograf) Level Pending Neurologic Exam Objective PHYSICAL EXAMINATION: GENERAL: He is a well-developed and well-nourished, pleasant gentleman, lying in bed, connected to a ventilator via a tracheostomy. HEAD: Normocephalic and atraumatic. EENT: Examination benign. NECK: No neck rigidity was observed. He did have a tracheostomy. NEUROLOGICAL EXAMINATION: MENTAL STATUS EXAMINATION: He was awake and alert. He was oriented to person, place and time. He was able to recall 3/3 words immediately and was able to remember them in 1 and 3 minutes. He was able to remember presidents TrSuperpro[employer] through Mak Keny. His mathematical skills were fair. His visuo-spatial function was preserved. SPEECH: Could not be tested, but he was able to mouth words relatively well. LANGUAGE: He was able to comprehend and express himself relatively well. CRANIAL NERVES EXAMINATION: II: The visual mckeon were intact to confrontation testing. III, IV & : The external ocular movements were full and the pupils 3 mm in diameter, equal, round, regular, and reactive sluggishly to light. V: He had normal facial sensations, and the temporales, masseters, and pterygoids functioned normally. VII: He had normal facial expressions and no facial asymmetry. VIII: Hearing was decreased bilaterally with worse hearing on the left side compared to the right. IX: The palate moved symmetrically on phonation. X: Could not be tested. XI: The sternocleidomastoids and trapezii functioned normally. XII: The tongue was in the midline without any fasciculations or atrophy. MOTOR SYSTEM: The tone was normal in all four extremities. Examination of muscle mass revealed generalized muscle wasting. Examination of power revealed G 5/5 power except for G 4+/5 power in the iliopsoas muscles bilaterally, and G 4/5 in the right ankle and toes. Power in the right upper extremity was limited by pain. Power in the right foot was also limited by pain. SENSORY EXAMINATION: He had intact sensations to light touch. Other sensory modalities could not be tested adequately. REFLEXES: 1+ and bilaterally symmetrical at the biceps, triceps, brachioradialis , and knees, 0 at both ankles. The plantar responses were flexor bilaterally. COORDINATION: He performed well on [id number] testing. STANCE & GAIT: Were deferred. Impression/Recommendations Diagnostic Impression 1. Mr. Gregg Restrepo is a 69-year-old, right-handed, gentleman with past history of multiple medical problems including hypertension, diabetes mellitus, end-stage renal disease for which he is hemodialysis dependent, prior episodes of sepsis, and prior episodes of encephalopathy, who was admitted to [facility] on October 31, 2018. Following that, he has had a stormy hospital course including pneumonia and sepsis, right foot infection, respiratory failure for which he has needed tracheostomy and in addition he has exhibited an alteration in his mental state with some waxing and waning of his mental state. 2. He feels feels unwell. He is being weaned off the ventilator and feels short of breath. He has been more alert. His mood is better. He is in fair spirits. The right heel is less painful - and is healing well. The right upper extremity is less swollen and less painful. He has been able to sleep better. He is still artificially ventilated. He feels that his strength is stable. The mind is clearer. He is eager to eat. He denies any new neurological symptoms. He has not had PT/OT recently. 3. On neurological examination, at this time, he is fully oriented, his recent memory is normal. He has minimally impaired higher cognitive function. He is able to comprehend and express himself well. He does have mild G 4+/5 weakness in the iliopsoas muscles bilaterally. Power in the right upper extremity was limited by pain. Power in the right foot was also limited by pain. He had globally diminished deep tendon reflexes with loss of ankle jerks, but no definite focal or lateralizing neurological findings. 4. His latest laboratory data on my initial evaluation revealed that he was anemic with a hemoglobin of 10.8 G. His last blood gas performed on 11/14/2018 revealed that he had a pCO2 elevated at 56.4 with a normal pO2 of 88.3 and normal pH of 7.37. His latest chemistry panel revealed that he was mildly hyponatremic with a sodium of 130, and had a chloride of 90. The BUN was elevated at 75, creatinine elevated at 7.4, glucose elevated at 156, Hemoglobin A1c elevated at 6.9%, Alkaline phosphatase elevated at 131, and ProBNP greater than 35,000. His last B12 level on 11/07/2018 was 723. His last folate on was 18.6. His last TSH on 12/06/2018 was 4.82, which is minimally elevated. 5. The CT scan of the brain performed on 11/10/2018 was benign for acute intracranial pathology. 6. The EEG done on 12/08/18 revealed left temporal dysfunction. 7. The patient's history and neurological examination are most consistent with mild multifactorial encephalopathy, which apparently waxes and wanes, but no definite focal neurological dysfunction. His encephalopathy is stable. 8. He tells me that he had a brain bleed many years ago. I did review his imaging done at [facility] a few years ago and he had closed head injuries with subarachnoid and subdural blood in the past. 9. His mood has improved. 10. There has never been a doubt regarding his ability to make decisions regarding his medical care. 11. He is eager to eat again. Recommendations 1. Continue present management. 2. Continue to correct the patient's toxic metabolic imbalances. 3. Mobilize with PT/OT. 4. Consider getting swallowing evaluation so that he can be fed for enjoyment. 5. Observe. Pantera Cool M.D., M.S.P.H. Pantera Cool MD January 14, 2019 19:47
--- NOTE | 2019-01-14 19:49 | Diagnostic Imaging Report ---
APPROVED REPORT CPT Code: 65759 Present Symptoms Lower Extremity Edema: Comments: Spinal cord compression RIGHT LEG: Venous imaging reveals a patent deep venous system. There is no evidence of thrombus within the femoral, popliteal or tibial segments. The greater saphenous vein is also within normal limits. Doppler indicates normal spontaneous flow within these segments.
[2019-01-14 20:00] VITALS: BP 160/77
--- NOTE | 2019-01-14 21:01 | Progress Note ---
DATE: 01/14/2019 SUBJECTIVE: The patient was in bed, in no acute distress. Calm. Doing better. Continues to have some anxiety and hopelessness. Sleep is adequate. The patient participates better in the process of weaning off from vent. MENTAL STATUS EXAMINATION: The patient is alert and oriented times self, place, and situation he is in. Mood is dysphoric. Affect is constricted. Congruent with mood. Thought process is concrete. Thought content, no suicidal or homicidal ideations. Memory is impaired. ASSESSMENT: 1. Major depressive disorder. 2. Anxiety disorder. PLAN: 1. The patient will be continued on Celexa. 2. Continue the Remeron. 3. Provide the patient with reality oriented and supportive therapy. Jeffrey Lala M.D. DR: LINDA JOB#: [id number] CC:
[2019-01-15] VITALS: BP 164/70
[2019-01-15 04:00] VITALS: BP 158/68
[2019-01-15] MEDS: NovoLOG Insulin Flexpen SUBQ SCH ×4 (05:57→23:42)
[2019-01-15 08:00] VITALS: BP 170/44
[2019-01-15] MEDS: Eliquis 2.5mg tablet GT SCH ×2 (08:01→18:07)
--- NOTE | 2019-01-15 10:18 | General Progress Note ---
Assessment/Plan Problem List: (1) Transplant ICD Codes: Z94.9 - Transplanted organ and tissue status, unspecified SNOMED: 968782697 (2) HTN (hypertension) ICD Codes: I10 - Essential (primary) hypertension SNOMED: 77569571 (3) Pacemaker ICD Codes: Z95.0 - Presence of cardiac pacemaker SNOMED: 093016237 (4) CHF (congestive heart failure) ICD Codes: I50.9 - Heart failure, unspecified SNOMED: 52923925 (5) DM (diabetes mellitus) ICD Codes: E11.9 - Type 2 diabetes mellitus without complications SNOMED: 72823144 (6) Foot ulcer ICD Codes: L97.509 - Non-pressure chronic ulcer of other part of unspecified foot with unspecified severity SNOMED: 97943346 Qualifiers: Qualified Codes: L97.511 - Non-pressure chronic ulcer of other part of right foot limited to breakdown of skin (7) ESRD (end stage renal disease) on dialysis ICD Codes: N18.6 - End stage renal disease; Z99.2 - Dependence on renal dialysis SNOMED: 265671128 Assessment/Plan: History of liver transplant, currently on Prograf History of cholecystectomy status post tracheostomy and PEG Infected G-tube site, fu ID recs C. difficile negative x 2 would care cx >> GRAM NEGATIVE BACILLUS CT AP reviewed, Moderate to large right pleural effusion. Moderate Ascites. s/p Paracentesis yielding 4.1 yield, r/o SBP >> negative for malignant cells Status post right thoracentesis yielding 2.1 L >> negative for malignant cells Continue G-tube feedings GT site care BID/prn topical abx around GT site per ID HD per nephro cont tacrolimus prn transfusions ppi zofran prn Imodium prn, Lomotil for persistent diarrhea follow labs supportive care outpatient Hep C tx, pending RNA PCR fu tacrolimus levels monitor LFTS Subjective ROS Limited/Unobtainable: No Allergies: Coded Allergies: CEPHALEXIN (Unverified Allergy, Unknown, 02/24/14) SULFAMETHOXAZOLE (Unverified Allergy, Unknown, 02/24/14) TRIMETHOPRIM (Unverified Allergy, Unknown, 02/24/14) Subjective he pulled his NGT again Objective Last 24 Hour Vital Signs Date Time Temp Pulse Resp B/P (MAP) Pulse Ox O2 Delivery O2 Flow Rate FiO2 01/15/19 09:25 95 30 40 01/15/19 08:00 97.0 81 26 170/44 (86) 99 01/15/19 08:00 76 01/15/19 08:00 Mechanical Ventilator 01/15/19 08:00 40 01/15/19 07:05 80 25 40 01/15/19 05:04 84 26 40 01/15/19 04:00 40 01/15/19 04:00 80 01/15/19 04:00 Mechanical Ventilator 01/15/19 04:00 97.9 78 23 158/68 (98) 100 01/15/19 03:36 83 26 40 01/15/19 00:41 85 28 40 01/15/19 00:00 98.4 85 22 164/70 (101) 100 01/15/19 00:00 Mechanical Ventilator 01/15/19 00:00 86 01/15/19 00:00 40 01/14/19 23:12 83 28 40 01/14/19 20:51 81 27 40 01/14/19 20:00 98.6 83 28 160/77 (104) 99 01/14/19 20:00 40 01/14/19 20:00 Mechanical Ventilator 01/14/19 19:25 84 25 40 01/14/19 19:23 84 01/14/19 16:49 85 25 40 01/14/19 16:00 40 01/14/19 16:00 Mechanical Ventilator 01/14/19 16:00 82 01/14/19 16:00 98.7 83 27 164/94 (117) 100 01/14/19 14:52 84 26 40 01/14/19 12:34 81 23 40 01/14/19 12:02 40 01/14/19 12:00 98.0 90 34 156/90 (112) 99 01/14/19 12:00 40 01/14/19 12:00 Mechanical Ventilator 01/14/19 12:00 90 01/14/19 10:37 91 29 40 Intake and Output 01/14/19 01/15/19 19:00 07:00 Intake Total 360 ml 795 ml Balance 360 ml 795 ml Free Water 300 ml Tube Feeding 360 ml 495 ml # Bowel Movements 2 1 Height (Feet): 5 Height (Inches): 4.00 Weight (Pounds): 211 General Appearance: alert EENT: normal ENT inspection Neck: supple Cardiovascular: normal rate Respiratory/Chest: decreased breath sounds Abdomen: normal bowel sounds, non tender, soft Extremities: non-tender Jorge Escalera MD January 15, 2019 10:18
--- NOTE | 2019-01-15 10:50 | Hematology/Onc Progress Note ---
Assessment/Plan Assessment/Plan Assessment and Recs: # Anemia of chronic disease due to underlying chronic medical issues, range has been 8-11 --> ferritin is 633, tibc is low --> No evidence of hemolysis is noted, peripheral smear has been reviewed. --> Epogen with HD 3x/wk --> Medications have been reviewed --> evaluate with Gi team prn --> transfuse if hgb is < 7 (will trend CBC daily) --> hgb trend 11.2-->10.9-->10.8-->10.7-->10.2-->9.7-->9.7-->8.5-->9-->9.2-->8.4 -->7.7-->8.8-->9.1-->8.6 --> s/p transfusion on 01/06 # Failure to thrive is likely related to poor overall status, poor functional status --> GT++ --> with multiple decub ulcerations that are noted, seen by id/surgery --> s/p trach as well --> cea is wnl # Acute non-occlusive dvt, right extremity ultrasound (acute non-occlusive DVT in internal jugular) --> currently is on eliquis 2.5mg po bid --> do not recommend a SVC filter --> given prior bleeding risk, hold off on heparin gtt --> vasc surgeon is aware, seek recs # Coagulopathy likely secondary to decreased Vitk dependent cofactors (high INR , PT) --> monitor closely for any evidence of bleeding. Currently is on eliquis --> VIT K on prn basis sq can be administered --> recently has improved inr 1.2-->1.1-->1.2 # Acute respiratory failure is now s/p trach to vent --> as per surgery recs # Ground glass opacities present on imaging of lung --> with pleural effusions, s/p drainage at this time --> no evidence for malignancy is noted --> as per pulm/id # Pleural effusion --> s/p thoracentesis, s/p paracentesis 12/31 --> no evidence of malignancy # Hyperkalemia --> kayxelate on prn basis per renal --> monitor K # Renal failure --> per renal recs, appreciated --> getting hd as per schedule # Altered level of consciousness --> currently as per baseline --> neuro eval prn # PAD off heparin gtt and now on eliquis --> per vasc and cards --> 12/22 s/p right leg angiogram with intervention --> on eliquis, continue # Gt tube cellulitis, on topical abx as per id around site The timing of this note does not necessarily reflect the time of the patient was seen. Greatly appreciate consultation! Subjective Hematologic/Lymphatic: Reports: anemia Allergies: Coded Allergies: CEPHALEXIN (Unverified Allergy, Unknown, 02/24/14) SULFAMETHOXAZOLE (Unverified Allergy, Unknown, 02/24/14) TRIMETHOPRIM (Unverified Allergy, Unknown, 02/24/14) All Systems: reviewed and negative except above Subjective 11/30: comfortable, on abx, no complaints, on t-piece 12/01: to have hd done potentially tomorrow, is more alert/awake 12/02: no major bleeding, hgb remains approx 11, no changes 12/03: no events, breathing mildly better, hgb is improved 12/04: on vent/trach, no major changes, sr ekg 12/10: small amount of secretions, on trach/vent, no issues otherwise 12/11: no major issues, no complaints, labs reviewed, no sig changes 12/13: no events to report, no fevers or chills, awaiting placement 12/14: no changes, no major events to report, no fevers or chills 12/15: pending placement, getting gt feeds and hd as per renal 12/16: labs have been reviewed, cbc noted, no changes 12/17: no events, no fevers, no cp, hgb remains stable 12/18: restarted on heparin gtt, seen by clarisa jeffery 12/20: continues to be on heparin gtt, no bleeding reported, no f/c 12/21: hd for today, no fevers or chils, off hep gtt on eliquis 12/22: to get hd tomorrow, today is s/p right leg angiogram with intervention 12/23: hgb remins stable, no fevers or chills reported 12/24: no events, no bleeding, vitals reviewed, cbc stable 12/25: no events, no bleeding, on vent, hgb 9 12/27: no changes, no f/c, no night swearts, seen with other providers 12/28: right extremity ultrasound (acute non-occlusive DVT in internal jugular, on eliquis 12/29: no events, no night sweats, seen by gi, no bleeding 12/30: cbc has been reviewed, no f/c, no night sweats reported 12/31: no events, eliquis is on hold cbc has been reviewed, bp elevated 01/01: no fevers or chills, cbc reviewed, hgb 9.3, getting HD 01/02: no events noted, getting norco for pain, hgb stable 01/04: not events to report, no bleeding, refusing ivl at this time, cbc reviewed 01/05: no fevers or chills noted, s/p trach/vent, no f/c, no chills noted 01/06: no events, to get 1 unit prbc today, renal seen, on abx 01/07: hd for tomorrow, seen by renal, no events, cbc reviewed 01/08: getting Hd today, seen by renal, no major events, in sr 01/10: no events to report, to get hd tomorrow, hgb stable 01/11: on vent/trach, gtube, tolerating treatment well, hd today 01/12: remains nonverbal, stable, on vent/trach, no fc 01/13: no events noted, cbc has been reviewed 01/14: thora and para fluid still neg for malignancy, no bleeding 01/15: Pt examined at bedside. No acute events. Pt refusing IV access per nursing per nursing team. Objective Objective Current Medications Medications (Trade) Dose Ordered Sig/Aleks Route PRN Reason Start Time Stop Time Status Last Admin Dose Admin Acetaminophen (Tylenol) 650 mg Q6H PRN GT Mild Pain/Temp > 100.5 12/21/18 16:00 01/20/19 15:59 01/13/19 22:50 Apixaban (Eliquis) 2.5 mg BID GT 01/01/19 21:00 01/31/19 20:59 01/15/19 08:01 Clotrimazole (Lotrimin) 1 applic DAILY TOPIC 01/08/19 18:00 02/07/19 17:59 01/15/19 07:56 Collagenase (Santyl) 1 applic DAILY TOPIC 12/29/18 09:00 01/28/19 08:59 01/15/19 07:56 Dextrose (Dextrose 50%) 25 ml Q30M PRN IV Hypoglycemia 12/31/18 23:00 01/30/19 22:59 Dextrose (Dextrose 50%) 50 ml Q30M PRN IV Hypoglycemia 12/31/18 23:00 01/30/19 22:59 Epoetin Vini (Epoetin Vini(ESRD on dialysis)) 10,000 unit FRI-FRI-FRI SUBQ 01/06/19 21:00 02/05/19 20:59 01/13/19 20:57 Escitalopram Oxalate (Lexapro) 20 mg DAILY GT 01/05/19 09:00 02/04/19 08:59 01/15/19 08:00 Hydralazine HCl (Apresoline) 25 mg Q4H PRN GT bp over 160 syst 01/06/19 15:00 02/05/19 14:59 Insulin Aspart (NovoLOG) EVERY 6 HOURS SUBQ 01/01/19 00:00 01/31/19 00:00 01/15/19 05:57 Loperamide HCl (Imodium) 2 mg Q6H PRN GT Diarrhea 01/07/19 11:00 02/06/19 10:59 01/15/19 01:46 Metoclopramide HCl (Reglan) 5 mg Q6H PRN IVP Nausea & Vomiting 12/30/18 17:30 01/29/19 17:29 01/05/19 20:45 Mirtazapine (Remeron) 15 mg BEDTIME GT 12/21/18 21:00 01/20/19 20:59 01/14/19 20:31 Tacrolimus (Prograf) 2 mg MoWeFr@0000,1200 ORAL 12/28/18 00:00 01/27/19 00:00 01/13/19 12:50 Tacrolimus (Prograf) 2 mg SuTuThSa@0900,2100 ORAL 12/26/18 21:00 01/25/19 20:59 01/14/19 20:31 Last 24 Hour Vital Signs Date Time Temp Pulse Resp B/P (MAP) Pulse Ox O2 Delivery O2 Flow Rate FiO2 01/15/19 10:39 98 01/15/19 10:38 87 25 40 01/15/19 09:25 95 30 40 01/15/19 08:00 97.0 81 26 170/44 (86) 99 01/15/19 08:00 76 01/15/19 08:00 Mechanical Ventilator 01/15/19 08:00 40 01/15/19 07:05 80 25 40 01/15/19 05:04 84 26 40 01/15/19 04:00 40 01/15/19 04:00 80 01/15/19 04:00 Mechanical Ventilator 01/15/19 04:00 97.9 78 23 158/68 (98) 100 01/15/19 03:36 83 26 40 01/15/19 00:41 85 28 40 01/15/19 00:00 98.4 85 22 164/70 (101) 100 01/15/19 00:00 Mechanical Ventilator 01/15/19 00:00 86 01/15/19 00:00 40 01/14/19 23:12 83 28 40 01/14/19 20:51 81 27 40 01/14/19 20:00 98.6 83 28 160/77 (104) 99 01/14/19 20:00 40 01/14/19 20:00 Mechanical Ventilator 01/14/19 19:25 84 25 40 01/14/19 19:23 84 01/14/19 16:49 85 25 40 01/14/19 16:00 40 01/14/19 16:00 Mechanical Ventilator 01/14/19 16:00 82 01/14/19 16:00 98.7 83 27 164/94 (117) 100 01/14/19 14:52 84 26 40 01/14/19 12:34 81 23 40 01/14/19 12:02 40 01/14/19 12:00 98.0 90 34 156/90 (112) 99 01/14/19 12:00 40 01/14/19 12:00 Mechanical Ventilator 01/14/19 12:00 90 01/14/19 10:37 91 29 40 01/14/19 09:05 99 01/14/19 09:05 81 33 40 01/14/19 09:00 40 01/14/19 08:00 40 01/14/19 08:00 Mechanical Ventilator 01/14/19 08:00 98.2 92 20 155/81 (105) 98 01/14/19 07:31 100 01/14/19 06:42 85 25 40 01/14/19 05:06 77 24 40 01/14/19 04:00 98.2 86 27 144/78 (100) 99 01/14/19 04:00 40 01/14/19 04:00 80 01/14/19 04:00 Mechanical Ventilator 01/14/19 02:43 83 22 40 01/14/19 01:29 79 26 40 01/14/19 00:00 Mechanical Ventilator 01/14/19 00:00 98.7 87 30 142/68 (92) 99 01/13/19 22:42 85 24 40 01/13/19 20:38 94 27 40 01/13/19 20:00 88 01/13/19 20:00 Mechanical Ventilator 01/13/19 20:00 98.5 89 25 133/72 (92) 100 01/13/19 20:00 40 01/13/19 18:50 83 30 40 01/13/19 16:42 79 30 40 01/13/19 16:00 40 01/13/19 16:00 97.9 90 31 151/97 (115) 99 90 01/13/19 16:00 Mechanical Ventilator 01/13/19 16:00 89 01/13/19 14:42 83 28 40 01/13/19 13:28 97.6 01/13/19 12:37 78 29 40 01/13/19 12:00 97.7 83 28 164/67 (99) 100 01/13/19 12:00 40 01/13/19 12:00 Mechanical Ventilator 01/13/19 11:39 84 Intake and Output 01/14/19 01/15/19 19:00 07:00 Intake Total 360 ml 795 ml Balance 360 ml 795 ml Free Water 300 ml Tube Feeding 360 ml 495 ml # Bowel Movements 2 1 Labs Test 01/13/19 03:35 01/14/19 04:00 White Blood Count 8.8 K/UL (4.8-10.8) 7.5 K/UL (4.8-10.8) Red Blood Count 3.48 M/UL (4.70-6.10) 3.42 M/UL (4.70-6.10) Hemoglobin 8.7 G/DL (14.2-18.0) 8.5 G/DL (14.2-18.0) Hematocrit 27.9 % (42.0-52.0) 27.5 % (42.0-52.0) Mean Corpuscular Volume 80 FL (80-99) 80 FL (80-99) Mean Corpuscular Hemoglobin 25.2 PG (27.0-31.0) 25.0 PG (27.0-31.0) Mean Corpuscular Hemoglobin Concent 31.3 G/DL (32.0-36.0) 31.0 G/DL (32.0-36.0) Red Cell Distribution Width 16.4 % (11.6-14.8) 16.4 % (11.6-14.8) Platelet Count 191 K/UL (150-450) 197 K/UL (150-450) Mean Platelet Volume 6.7 FL (6.5-10.1) 6.5 FL (6.5-10.1) Neutrophils (%) (Auto) 80.7 % (45.0-75.0) 77.7 % (45.0-75.0) Lymphocytes (%) (Auto) 10.9 % (20.0-45.0) 14.4 % (20.0-45.0) Monocytes (%) (Auto) 7.5 % (1.0-10.0) 7.3 % (1.0-10.0) Eosinophils (%) (Auto) 0.0 % (0.0-3.0) 0.0 % (0.0-3.0) Basophils (%) (Auto) 0.9 % (0.0-2.0) 0.6 % (0.0-2.0) Sodium Level 132 MMOL/L (136-145) 133 MMOL/L (136-145) Potassium Level 4.2 MMOL/L (3.5-5.1) 4.1 MMOL/L (3.5-5.1) Chloride Level 93 MMOL/L (98-107) 96 MMOL/L (98-107) Carbon Dioxide Level 27 MMOL/L (21-32) 27 MMOL/L (21-32) Anion Gap 12 mmol/L (5-15) 10 mmol/L (5-15) Blood Urea Nitrogen 77 mg/dL (7-18) 60 mg/dL (7-18) Creatinine 6.3 MG/DL (0.55-1.30) 5.2 MG/DL (0.55-1.30) Estimat Glomerular Filtration Rate 8.9 mL/min (>60) 11.1 mL/min (>60) Glucose Level 130 MG/DL (74-106) 98 MG/DL (74-106) Calcium Level 9.1 MG/DL (8.5-10.1) 8.9 MG/DL (8.5-10.1) Phosphorus Level 4.4 MG/DL (2.5-4.9) Magnesium Level 2.1 MG/DL (1.8-2.4) Total Bilirubin 0.4 MG/DL (0.2-1.0) 0.4 MG/DL (0.2-1.0) Gamma Glutamyl Transpeptidase 42 U/L (5-85) Aspartate Amino Transf (AST/SGOT) 15 U/L (15-37) 15 U/L (15-37) Alanine Aminotransferase (ALT/SGPT) 9 U/L (12-78) 8 U/L (12-78) Alkaline Phosphatase 143 U/L (46-116) 136 U/L (46-116) Total Protein 6.4 G/DL (6.4-8.2) 6.3 G/DL (6.4-8.2) Albumin 1.9 G/DL (3.4-5.0) 1.9 G/DL (3.4-5.0) Globulin 4.5 g/dL 4.4 g/dL Albumin/Globulin Ratio 0.4 (1.0-2.7) 0.4 (1.0-2.7) Height (Feet): 5 Height (Inches): 4.00 Weight (Pounds): 211 Objective PE General Appearance: mild distress, moderate distress Lines, tubes and drains: peripheral HEENT: EOMI, ++ thrush, tonsils swollen ++trach Neck: normal inspection Respiratory/Chest: decreased breath sounds, accessory muscle use Cardiovascular/Chest: tachycardia Abdomen: soft, no organomegaly, no mass, ++ peg Extremities: other Skin Exam: warm/dry, rash Neurologic: alert, responsive Zacarias Khoury MD January 15, 2019 10:50
--- NOTE | 2019-01-15 11:48 | Cardiac Electrophysiology PN ---
Assessment/Plan Assessment/Plan 1. Troponin leak due to renal failure. No CP or SOB. Nl EF 2. Hx of CABG. No CP on Coreg, aspirin and Lipitor 3. NSVT in setting of old NE and CABG. EF 55%. Continue Coreg 4. CHF and right pleural effusion. On hemodialysis. S/P Thoracentesis 5. S/P Right sided [employer] DDD pacemaker with Nl Fx. 6. End-stage renal disease, on hemodialysis per Dr. Stevens 7. Multilevel AOD LE's with non-healing Right foot ulcer. Had abdominal angiogram per Dr Salmeron Antibiotic per Dr. Landis. FU by Dr. Huizar S/P peripheral intervention by Dr. Salmeron 12/22/18 Right foot on Wound-Vac 8. History of liver transplant on Prograf 9. Respiratory failure, S/P tracheostomy. Failed weaning again 10. Pleural effusion. s/p 2300 cc thoracentesis 01/01/19 11. Dysphagia, S/P PEG DW RN Subjective Subjective Ne events. Alert in NAD.Failed weaning again. Scheduled for HD today Objective Last 24 Hour Vital Signs Date Time Temp Pulse Resp B/P (MAP) Pulse Ox O2 Delivery O2 Flow Rate FiO2 01/15/19 10:39 98 01/15/19 10:38 87 25 40 01/15/19 10:30 40 01/15/19 09:30 40 01/15/19 09:25 95 30 40 01/15/19 08:00 97.0 81 26 170/44 (86) 99 01/15/19 08:00 76 01/15/19 08:00 Mechanical Ventilator 01/15/19 08:00 40 01/15/19 07:05 80 25 40 01/15/19 05:04 84 26 40 01/15/19 04:00 40 01/15/19 04:00 80 01/15/19 04:00 Mechanical Ventilator 01/15/19 04:00 97.9 78 23 158/68 (98) 100 01/15/19 03:36 83 26 40 01/15/19 00:41 85 28 40 01/15/19 00:00 98.4 85 22 164/70 (101) 100 01/15/19 00:00 Mechanical Ventilator 01/15/19 00:00 86 01/15/19 00:00 40 01/14/19 23:12 83 28 40 01/14/19 20:51 81 27 40 01/14/19 20:00 98.6 83 28 160/77 (104) 99 01/14/19 20:00 40 01/14/19 20:00 Mechanical Ventilator 01/14/19 19:25 84 25 40 01/14/19 19:23 84 01/14/19 16:49 85 25 40 01/14/19 16:00 40 01/14/19 16:00 Mechanical Ventilator 01/14/19 16:00 82 01/14/19 16:00 98.7 83 27 164/94 (117) 100 01/14/19 14:52 84 26 40 01/14/19 12:34 81 23 40 01/14/19 12:02 40 01/14/19 12:00 98.0 90 34 156/90 (112) 99 01/14/19 12:00 40 01/14/19 12:00 Mechanical Ventilator 01/14/19 12:00 90 Intake and Output 01/14/19 01/15/19 19:00 07:00 Intake Total 360 ml 795 ml Balance 360 ml 795 ml Free Water 300 ml Tube Feeding 360 ml 495 ml # Bowel Movements 2 1 Objective HEAD AND NECK: No JVD. Tracheostomy intact LUNGS: Clear CARDIOVASCULAR: Irregular S1 and S2 with no gallop. Sternotomy is intact Pacemaker in the right subclavian ABDOMEN: Soft. PEG in place EXTREMITIES: 1+ pitting edema. Right heel in dressing and connected to WoundVac Shivam Sharpe MD January 15, 2019 11:48
[2019-01-15 12:00] VITALS: BP 148/67
--- NOTE | 2019-01-15 13:16 | General Progress Note ---
Assessment/Plan Assessment/Plan: #Right heel diabetic foot ulcer without osteomyelitis #PAD #Right IJ DVT -seen by Podiatry and ID -s/p Vanco x 2 weeks during HD -continue Eliquis -Vascular Surgery and Hematology following #Acute Resp hypercapnic failure s/p tracheostomy #Angioedema #Large right pleural effusion # R side trapped lung -continue trach care -Remains vent-dependant, breathing trials ongoing -Right thoracentesis 01/01/19 with 2.3 lt removed. Post procedure CXR with R trapped lung. -continue vent weaning -Pulm follow up #End-stage renal disease, on dialysis M-W- #RUE edema #Anasarca, ascites, scrotal edema, pleural effusion due to hypoalbuminemia -HD with UF per Nephrology -s/p PRBC transfusion during HD #Coronary artery disease -continue ASA, Coreg, atorvastatin -cardiology following #Type 2 DM -ISS #Acute metabolic encephalopathy -continue supportive care -Neurology following #history of chronic HCV infection #history of liver transplant -continue Prograf -GI following #Abdominal distension and ascites s/p therapeutic paracentesis -no nausea, vomiting or tenderness -continue supportive care -GI following -s/p paracentesis 12/31/18 4.1 lt #Dysphagia S/p PEG with PEG site cellulitis -s/p antibiotics per ID and GI -continue local wound care -tolerating tube feeds # FULL CODE Subjective Date patient seen: January 15, 2019 Time patient seen: 13:00 Constitutional: Denies: fever Cardiovascular: Denies: chest pain Respiratory: Denies: cough Gastrointestinal/Abdominal: Denies: abdominal pain Allergies: Coded Allergies: CEPHALEXIN (Unverified Allergy, Unknown, 02/24/14) SULFAMETHOXAZOLE (Unverified Allergy, Unknown, 02/24/14) TRIMETHOPRIM (Unverified Allergy, Unknown, 02/24/14) Subjective Medicine follow up for acute resp failure, PAD, right heel infected DFU, ESRD, anasarca secondary to hypoalbuminemia, right IJ DVT. S/p 4 liter paracentesis and 2 liter thoracentesis No new issues Objective Last 24 Hour Vital Signs Date Time Temp Pulse Resp B/P (MAP) Pulse Ox O2 Delivery O2 Flow Rate FiO2 01/15/19 12:00 Mechanical Ventilator 01/15/19 12:00 98.1 79 26 148/67 (94) 100 01/15/19 10:39 98 01/15/19 10:38 87 25 40 01/15/19 10:30 40 01/15/19 09:30 40 01/15/19 09:25 95 30 40 01/15/19 08:00 97.0 81 26 170/44 (86) 99 01/15/19 08:00 76 01/15/19 08:00 Mechanical Ventilator 01/15/19 08:00 40 01/15/19 07:05 80 25 40 01/15/19 05:04 84 26 40 01/15/19 04:00 40 01/15/19 04:00 80 01/15/19 04:00 Mechanical Ventilator 01/15/19 04:00 97.9 78 23 158/68 (98) 100 01/15/19 03:36 83 26 40 01/15/19 00:41 85 28 40 01/15/19 00:00 98.4 85 22 164/70 (101) 100 01/15/19 00:00 Mechanical Ventilator 01/15/19 00:00 86 01/15/19 00:00 40 01/14/19 23:12 83 28 40 01/14/19 20:51 81 27 40 01/14/19 20:00 98.6 83 28 160/77 (104) 99 01/14/19 20:00 40 01/14/19 20:00 Mechanical Ventilator 01/14/19 19:25 84 25 40 01/14/19 19:23 84 01/14/19 16:49 85 25 40 01/14/19 16:00 40 01/14/19 16:00 Mechanical Ventilator 01/14/19 16:00 82 01/14/19 16:00 98.7 83 27 164/94 (117) 100 01/14/19 14:52 84 26 40 Intake and Output 01/14/19 01/15/19 19:00 07:00 Intake Total 360 ml 795 ml Balance 360 ml 795 ml Free Water 300 ml Tube Feeding 360 ml 495 ml # Bowel Movements 2 1 Height (Feet): 5 Height (Inches): 4.00 Weight (Pounds): 211 General Appearance: alert Neck: normal inspection Cardiovascular: normal rate, regular rhythm Respiratory/Chest: lungs clear, normal breath sounds Abdomen: non tender, soft Dennis Branham MD January 15, 2019 13:16
--- NOTE | 2019-01-15 13:25 | Nephrology Progress Note ---
Assessment/Plan Problem List: (1) ESRD (end stage renal disease) on dialysis (2) Foot ulcer (3) CHF (congestive heart failure) Assessment: Ej Fx 20 % (4) Pacemaker (5) Acute respiratory failure Assessment: with Co2 retention (6) G-tube site cellulitis Assessment ESRD with high K and SOB on admit Foot ulcer, likely infected High Troponin likely NSTMI Pacer , Pleural effusion s/p CABGS s/p Liver transplant Plan dialysis next 01/15 labs before HD noted BP low- improved on midodrine per consultants, GI GT site infection, topical antibiotic Neuro note appreciated placement in process vascular esteban regarding heel ulcer per Dr Mcgill pain med change to dilaudid GT Now has tracheostomy and PEG Adjust BP meds add nitro paste TID Antibiotics by ID per cardio and ID Podiatry and Vascular surgical fu ? DC planning? Subjective Constitutional: Reports: malaise Objective Objective Last 24 Hour Vital Signs Date Time Temp Pulse Resp B/P (MAP) Pulse Ox O2 Delivery O2 Flow Rate FiO2 01/15/19 13:16 89 25 40 01/15/19 12:00 Mechanical Ventilator 01/15/19 12:00 98.1 79 26 148/67 (94) 100 01/15/19 10:39 98 01/15/19 10:38 87 25 40 01/15/19 10:30 40 01/15/19 09:30 40 01/15/19 09:25 95 30 40 01/15/19 08:00 97.0 81 26 170/44 (86) 99 01/15/19 08:00 76 01/15/19 08:00 Mechanical Ventilator 01/15/19 08:00 40 01/15/19 07:05 80 25 40 01/15/19 05:04 84 26 40 01/15/19 04:00 40 01/15/19 04:00 80 01/15/19 04:00 Mechanical Ventilator 01/15/19 04:00 97.9 78 23 158/68 (98) 100 01/15/19 03:36 83 26 40 01/15/19 00:41 85 28 40 01/15/19 00:00 98.4 85 22 164/70 (101) 100 01/15/19 00:00 Mechanical Ventilator 01/15/19 00:00 86 01/15/19 00:00 40 01/14/19 23:12 83 28 40 5/30/19 20:51 81 27 40 01/14/19 20:00 98.6 83 28 160/77 (104) 99 01/14/19 20:00 40 01/14/19 20:00 Mechanical Ventilator 01/14/19 19:25 84 25 40 01/14/19 19:23 84 01/14/19 16:49 85 25 40 01/14/19 16:00 40 01/14/19 16:00 Mechanical Ventilator 01/14/19 16:00 82 01/14/19 16:00 98.7 83 27 164/94 (117) 100 01/14/19 14:52 84 26 40 Intake and Output 01/14/19 01/15/19 19:00 07:00 Intake Total 360 ml 795 ml Balance 360 ml 795 ml Free Water 300 ml Tube Feeding 360 ml 495 ml # Bowel Movements 2 1 Height (Feet): 5 Height (Inches): 4.00 Weight (Pounds): 211 General Appearance: no apparent distress EENT: other - trach Respiratory/Chest: decreased breath sounds Abdomen: other - PEG Objective no other change Nakul Stevens MD January 15, 2019 13:25
[2019-01-15 16:00] VITALS: BP 158/90
--- NOTE | 2019-01-15 17:05 | Neurology Progress Note ---
Interim History Interim History Interim History Mr. Restrepo feels a little better today. He is being weaned off the ventilator and is comfortable. He is more alert. His mood is better. He is in fair spirits. The right heel is less painful - and is healing well. The right upper extremity is less swollen and less painful. He has been able to sleep better. He is still artificially ventilated. He feels that his strength is stable. The mind is clearer. He is eager to eat. He denies any new neurological symptoms. He had PT and exercised his legs today. Review of Systems Neuro Review of Systems Benign. Objective Physical Exam Last Vital Signs Date Time Temp Pulse Resp B/P (MAP) Pulse Ox O2 Delivery O2 Flow Rate FiO2 01/15/19 16:55 92 26 40 01/15/19 16:00 97.7 158/90 (112) 100 01/15/19 12:00 Mechanical Ventilator Neurologic Exam Objective PHYSICAL EXAMINATION: GENERAL: He is a well-developed and well-nourished, pleasant gentleman, lying in bed, connected to a ventilator via a tracheostomy. HEAD: Normocephalic and atraumatic. EENT: Examination benign. NECK: No neck rigidity was observed. He did have a tracheostomy. NEUROLOGICAL EXAMINATION: MENTAL STATUS EXAMINATION: He was awake and alert. He was oriented to person, place and time. He was able to recall 3/3 words immediately and was able to remember them in 1 and 3 minutes. He was able to remember presidents Trump through Mak Keny. His mathematical skills were fair. His visuo-spatial function was preserved. SPEECH: Could not be tested, but he was able to mouth words relatively well. LANGUAGE: He was able to comprehend and express himself relatively well. CRANIAL NERVES EXAMINATION: II: The visual mckeon were intact to confrontation testing. III, IV & : The external ocular movements were full and the pupils 3 mm in diameter, equal, round, regular, and reactive sluggishly to light. V: He had normal facial sensations, and the temporales, masseters, and pterygoids functioned normally. VII: He had normal facial expressions and no facial asymmetry. VIII: Hearing was decreased bilaterally with worse hearing on the left side compared to the right. IX: The palate moved symmetrically on phonation. X: Could not be tested. XI: The sternocleidomastoids and trapezii functioned normally. XII: The tongue was in the midline without any fasciculations or atrophy. MOTOR SYSTEM: The tone was normal in all four extremities. Examination of muscle mass revealed generalized muscle wasting. Examination of power revealed G 5/5 power except for G 4+/5 power in the iliopsoas muscles bilaterally, and G 4/5 in the right ankle and toes. Power in the right upper extremity was limited by pain. Power in the right foot was also limited by pain. SENSORY EXAMINATION: He had intact sensations to light touch. Other sensory modalities could not be tested adequately. REFLEXES: 1+ and bilaterally symmetrical at the biceps, triceps, brachioradialis , and knees, 0 at both ankles. The plantar responses were flexor bilaterally. COORDINATION: He performed well on [id number] testing. STANCE & GAIT: Were deferred. Impression/Recommendations Diagnostic Impression 1. Mr. Gregg Restrepo is a 69-year-old, right-handed, gentleman with past history of multiple medical problems including hypertension, diabetes mellitus, end-stage renal disease for which he is hemodialysis dependent, prior episodes of sepsis, and prior episodes of encephalopathy, who was admitted to [facility] on October 31, 2018. Following that, he has had a stormy hospital course including pneumonia and sepsis, right foot infection, respiratory failure for which he has needed tracheostomy and in addition he has exhibited an alteration in his mental state with some waxing and waning of his mental state. 2. He feels a little better today. He is being weaned off the ventilator and is comfortable. He is more alert. His mood is better. He is in fair spirits. The right heel is less painful - and is healing well. The right upper extremity is less swollen and less painful. He has been able to sleep better. He is still artificially ventilated. He feels that his strength is stable. The mind is clearer. He is eager to eat. He denies any new neurological symptoms. He had PT and exercised his legs today. 3. On neurological examination, at this time, he is fully oriented, his recent memory is normal. He has minimally impaired higher cognitive function. He is able to comprehend and express himself well. He does have mild G 4+/5 weakness in the iliopsoas muscles bilaterally. Power in the right upper extremity was limited by pain. Power in the right foot was also limited by pain. He had globally diminished deep tendon reflexes with loss of ankle jerks, but no definite focal or lateralizing neurological findings. 4. His latest laboratory data on my initial evaluation revealed that he was anemic with a hemoglobin of 10.8 G. His last blood gas performed on 11/14/2018 revealed that he had a pCO2 elevated at 56.4 with a normal pO2 of 88.3 and normal pH of 7.37. His latest chemistry panel revealed that he was mildly hyponatremic with a sodium of 130, and had a chloride of 90. The BUN was elevated at 75, creatinine elevated at 7.4, glucose elevated at 156, Hemoglobin A1c elevated at 6.9%, Alkaline phosphatase elevated at 131, and ProBNP greater than 35,000. His last B12 level on 11/07/2018 was 723. His last folate on was 18.6. His last TSH on 12/06/2018 was 4.82, which is minimally elevated. 5. The CT scan of the brain performed on 11/10/2018 was benign for acute intracranial pathology. 6. The EEG done on 12/08/18 revealed left temporal dysfunction. 7. The patient's history and neurological examination are most consistent with mild multifactorial encephalopathy, which apparently waxes and wanes, but no definite focal neurological dysfunction. His encephalopathy is stable. 8. He tells me that he had a brain bleed many years ago. I did review his imaging done at [facility] a few years ago and he had closed head injuries with subarachnoid and subdural blood in the past. 9. His mood has improved. 10. There has never been a doubt regarding his ability to make decisions regarding his medical care. 11. He is eager to eat again. Recommendations 1. Continue present management. 2. Continue to correct the patient's toxic metabolic imbalances. 3. Mobilize with PT/OT. 4. Consider getting swallowing evaluation so that he can be fed for enjoyment. 5. Observe. Pantera Colo M.D., M.S.P.H. Pantera Cool MD January 15, 2019 17:05
--- NOTE | 2019-01-15 18:00 | Infectious Diseases Prog Note ---
Assessment/Plan Problems: (1) Diarrhea Assessment & Plan: improved, with no infectious etiology so far , and negative stool for C diff toxin , and no pathogens on stool culture , avoid laxatives, monitor clinically , encourage hydration (2) Foot ulcer Assessment & Plan: with MRSA grew out of it in the past, S/P vancomycin treatment with HD for two weeks, had vascular eval with revascularization to the right leg , S/P ulcer resection by fourth hand . deep ulcer culture grew MRSA and E.coli with diphtheroids , possible colonization , with no evidence of active infection as per discussion with podiatry , no need to be started on antibiotics for now , will continue to monitor clinically and make recommendations as necessary . bone scan ruled out osteomyelitis of the heel before, couldn't do an MRI since on the vent . continue local wound care as per fourth hand . (3) Thrush, oral Assessment & Plan: continue local nystatin as needed , S/P micafungin for three weeks empirically (4) HCV antibody positive Assessment & Plan: no evidence of active infection, with undetectable viral load , suspect due to previous infection , cleared, S/P liver transplant . (5) DM (diabetes mellitus) Assessment & Plan: recommend tight glycemic control to keep blood glucose between 100-140 (6) CHF (congestive heart failure) Assessment & Plan: on HD , renal is following, monitor daily weight (7) Severe tongue swelling Assessment & Plan: improving , s/p tracheostomy to protect his airway since respiratory status worsened . now improving, pulmonary is following (8) Pleural effusion Assessment & Plan: recurrent on the right, with lung collapse , S/P thoracentesis X 3 now with removal of 2.3 liters of clear fluids on 12/31/18 . await fluids culture and gram stain, with PH and Glucose level . PREVIOUS culture were negative with negative cytology. pulmonary is following (9) Ascites Assessment & Plan: S/P paracentesis with removal of 4.1 liters of fluids, culture so far is negative Assessment/Plan will continue to monitor patient on daily basis and make recommendations as necessary since he is high risk for recurrent infection Subjective Constitutional: Reports: no symptoms HEENT: Reports: no symptoms Respiratory: Reports: no symptoms Breasts: Reports: no symptoms Cardiovascular: Reports: no symptoms Gastrointestinal/Abdominal: Reports: no symptoms Genitourinary: Reports: no symptoms Neurologic: Reports: no symptoms Psychiatric: Reports: no symptoms Skin: Reports: no symptoms Endocrine: Reports: no symptoms Hematologic: Reports: no symptoms Musculoskeletal: Reports: no symptoms Allergies: Coded Allergies: CEPHALEXIN (Unverified Allergy, Unknown, 02/24/14) SULFAMETHOXAZOLE (Unverified Allergy, Unknown, 02/24/14) TRIMETHOPRIM (Unverified Allergy, Unknown, 02/24/14) Subjective he was comfortable, lying in bed, denied any fever or chills, no significant secretions, no SOB . has heel pain at the surgery site with wound VAC in place , but no draining coming out . no diarrhea . Objective Vital Signs Last 24 Hour Vital Signs Date Time Temp Pulse Resp B/P (MAP) Pulse Ox O2 Delivery O2 Flow Rate FiO2 01/15/19 16:55 92 26 40 01/15/19 16:00 76 01/15/19 16:00 40 01/15/19 16:00 97.7 79 26 158/90 (112) 100 01/15/19 16:00 Mechanical Ventilator 01/15/19 14:49 88 25 40 01/15/19 13:16 89 25 40 01/15/19 12:00 Mechanical Ventilator 01/15/19 12:00 79 01/15/19 12:00 98.1 79 26 148/67 (94) 100 01/15/19 10:39 98 01/15/19 10:38 87 25 40 01/15/19 10:30 40 01/15/19 09:30 40 01/15/19 09:25 95 30 40 01/15/19 08:00 97.0 81 26 170/44 (86) 99 01/15/19 08:00 76 01/15/19 08:00 Mechanical Ventilator 01/15/19 08:00 40 01/15/19 07:05 80 25 40 01/15/19 05:04 84 26 40 01/15/19 04:00 40 01/15/19 04:00 80 01/15/19 04:00 Mechanical Ventilator 01/15/19 04:00 97.9 78 23 158/68 (98) 100 01/15/19 03:36 83 26 40 01/15/19 00:41 85 28 40 01/15/19 00:00 98.4 85 22 164/70 (101) 100 01/15/19 00:00 Mechanical Ventilator 01/15/19 00:00 86 5/31/19 00:00 40 01/14/19 23:12 83 28 40 01/14/19 20:51 81 27 40 01/14/19 20:00 98.6 83 28 160/77 (104) 99 01/14/19 20:00 40 01/14/19 20:00 Mechanical Ventilator 01/14/19 19:25 84 25 40 01/14/19 19:23 84 Height (Feet): 5 Height (Inches): 4.00 Weight (Pounds): 211 General Appearance: WD/WN, no acute distress HEENT: normocephalic, atraumatic, anicteric, mucous membranes moist, PERRL Respiratory/Chest: chest wall non-tender, lungs clear, normal breath sounds, no respiratory distress, no accessory muscle use Cardiovascular: normal peripheral pulses, normal rate, regular rhythm, no gallop/murmur, no JVD Abdomen: normal bowel sounds, soft, non tender, no organomegaly, non distended , no mass, no scars Genitourinary: normal external genitalia Extremities: no cyanosis, no clubbing Skin: no rash, no lesions, no ulcers 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, alert, responsive Lymphatic: no neck adenopathy, no groin adenopathy Musculoskeletal: normal muscle bulk, no effusion Current Medications Medications (Trade) Dose Ordered Sig/Aleks Route PRN Reason Start Time Stop Time Status Last Admin Dose Admin Acetaminophen (Tylenol) 650 mg Q6H PRN GT Mild Pain/Temp > 100.5 12/21/18 16:00 01/20/19 15:59 01/13/19 22:50 Apixaban (Eliquis) 2.5 mg BID GT 01/01/19 21:00 01/31/19 20:59 01/15/19 08:01 Clotrimazole (Lotrimin) 1 applic DAILY TOPIC 01/08/19 18:00 02/07/19 17:59 01/15/19 07:56 Collagenase (Santyl) 1 applic DAILY TOPIC 12/29/18 09:00 01/28/19 08:59 01/15/19 07:56 Dextrose (Dextrose 50%) 25 ml Q30M PRN IV Hypoglycemia 12/31/18 23:00 01/30/19 22:59 Dextrose (Dextrose 50%) 50 ml Q30M PRN IV Hypoglycemia 12/31/18 23:00 01/30/19 22:59 Epoetin Vini (Epoetin Vini(ESRD on dialysis)) 10,000 unit FRI-FRI-FRI SUBQ 01/06/19 21:00 02/05/19 20:59 01/13/19 20:57 Escitalopram Oxalate (Lexapro) 20 mg DAILY GT 01/05/19 09:00 02/04/19 08:59 01/15/19 08:00 Hydralazine HCl (Apresoline) 25 mg Q4H PRN GT bp over 160 syst 01/06/19 15:00 02/05/19 14:59 Insulin Aspart (NovoLOG) EVERY 6 HOURS SUBQ 01/01/19 00:00 01/31/19 00:00 01/15/19 12:10 Loperamide HCl (Imodium) 2 mg Q6H PRN GT Diarrhea 01/07/19 11:00 02/06/19 10:59 01/15/19 01:46 Metoclopramide HCl (Reglan) 5 mg Q6H PRN IVP Nausea & Vomiting 12/30/18 17:30 01/29/19 17:29 01/05/19 20:45 Mirtazapine (Remeron) 15 mg BEDTIME GT 12/21/18 21:00 01/20/19 20:59 01/14/19 20:31 Tacrolimus (Prograf) 2 mg MoWeFr@0000,1200 ORAL 12/28/18 00:00 01/27/19 00:00 01/15/19 12:05 Tacrolimus (Prograf) 2 mg SuTuThSa@0900,2100 ORAL 12/26/18 21:00 01/25/19 20:59 01/14/19 20:31 Francois Landis M.D. January 15, 2019 18:00
[2019-01-15] MEDS: Acetaminophen 650mg/20.3ml GT PRN (18:10)
[2019-01-15 19:21] LABS: BASOPHILS % (AUTO) 1.1 % (0.0-2.0); HEMATOCRIT 25.4 % (42.0-52.0); HEMOGLOBIN 8.3 G/DL (14.2-18.0); LYMPHOCYTES % (AUTO) 15.4 % (20.0-45.0); MEAN CORPUSCULAR VOLUME 77 FL (80-99); MONOCYTES % (AUTO) 6.5 % (1.0-10.0); PLATELET COUNT 187 K/UL (150-450); RED BLOOD COUNT 3.29 M/UL (4.70-6.10); RED CELL DISTRIBUTION WIDTH 15.1 % (11.6-14.8); WHITE BLOOD COUNT 7.1 K/UL (4.8-10.8)
[2019-01-15 19:43] LABS: ANION GAP 9 mmol/L (5-15); BLOOD UREA NITROGEN 61 mg/dL (7-18); CALCIUM 8.5 MG/DL (8.5-10.1); CARBON DIOXIDE 30 MMOL/L (21-32); CHLORIDE 95 MMOL/L (98-107); CREATININE 5.2 MG/DL (0.55-1.30); POTASSIUM 3.5 MMOL/L (3.5-5.1); SODIUM 134 MMOL/L (136-145)
[2019-01-15 19:48] LABS: ALANINE AMINOTRANSFERASE 13 U/L (12-78); ALBUMIN/GLOBULIN RATIO 0.5 (1.0-2.7); ALKALINE PHOSPHATASE 147 U/L (46-116); ASPARTATE AMINO TRANSFERASE 13 U/L (15-37); BILIRUBIN,TOTAL 0.3 MG/DL (0.2-1.0)
[2019-01-15 20:00] VITALS: BP 108/47
[2019-01-15] MEDS: Epoetin Alfa-EPBX(ESRD on dialysis)10,000 unit/ml vial SUBQ SCH (21:52)
[2019-01-16] VITALS: BP 79/55
[2019-01-16] MEDS: Acetaminophen 650mg/20.3ml GT PRN (00:57)
--- NOTE | 2019-01-16 02:15 | Progress Note ---
DATE: 01/15/2019 SUBJECTIVE: The patient is calmer. He is gradually improving. He is more hopeful in participation in weaning process. The patient's sleep is adequate. MENTAL STATUS EXAMINATION: Alert and oriented to time, self, place, and situation. Mood is dysphoric. Affect is constricted and congruent with mood. Thought process, linear. Thought content, no suicidal or homicidal ideations. ASSESSMENT: 1. Major depressive disorder. 2. Anxiety disorder. PLAN: 1. We will continue current medications. 2. Provide the patient with reality orientation and supportive therapy. Jeffrey Lala M.D. DR: LINDA JOB#: [id number] CC:
[2019-01-16 04:00] VITALS: BP 104/98
[2019-01-16] MEDS: NovoLOG Insulin Flexpen SUBQ SCH ×4 (05:15→23:14)
--- NOTE | 2019-01-16 07:55 | General Progress Note ---
Assessment/Plan Problem List: (1) Transplant ICD Codes: Z94.9 - Transplanted organ and tissue status, unspecified SNOMED: 419717294 (2) HTN (hypertension) ICD Codes: I10 - Essential (primary) hypertension SNOMED: 57863672 (3) Pacemaker ICD Codes: Z95.0 - Presence of cardiac pacemaker SNOMED: 425379249 (4) CHF (congestive heart failure) ICD Codes: I50.9 - Heart failure, unspecified SNOMED: 55729277 (5) DM (diabetes mellitus) ICD Codes: E11.9 - Type 2 diabetes mellitus without complications SNOMED: 84044477 (6) Foot ulcer ICD Codes: L97.509 - Non-pressure chronic ulcer of other part of unspecified foot with unspecified severity SNOMED: 79487281 Qualifiers: Qualified Codes: L97.511 - Non-pressure chronic ulcer of other part of right foot limited to breakdown of skin (7) ESRD (end stage renal disease) on dialysis ICD Codes: N18.6 - End stage renal disease; Z99.2 - Dependence on renal dialysis SNOMED: 077843870 Assessment/Plan: History of liver transplant, currently on Prograf History of cholecystectomy status post tracheostomy and PEG Infected G-tube site, fu ID recs C. difficile negative x 2 would care cx >> GRAM NEGATIVE BACILLUS CT AP reviewed, Moderate to large right pleural effusion. Moderate Ascites. s/p Paracentesis yielding 4.1 yield, r/o SBP >> negative for malignant cells Status post right thoracentesis yielding 2.1 L >> negative for malignant cells Continue G-tube feedings GT site care BID/prn topical abx around GT site per ID HD per nephro cont tacrolimus prn transfusions ppi zofran prn Imodium prn, Lomotil for persistent diarrhea follow labs supportive care outpatient Hep C tx, pending RNA PCR fu tacrolimus levels monitor LFTS dc reglan add lomotil Subjective ROS Limited/Unobtainable: No Allergies: Coded Allergies: CEPHALEXIN (Unverified Allergy, Unknown, 02/24/14) SULFAMETHOXAZOLE (Unverified Allergy, Unknown, 02/24/14) TRIMETHOPRIM (Unverified Allergy, Unknown, 02/24/14) Subjective he pulled his NGT again Objective Last 24 Hour Vital Signs Date Time Temp Pulse Resp B/P (MAP) Pulse Ox O2 Delivery O2 Flow Rate FiO2 6/1/19 04:35 90 28 40 01/16/19 04:00 40 01/16/19 04:00 Mechanical Ventilator 01/16/19 04:00 97.7 87 24 104/98 (100) 100 01/16/19 03:54 85 01/16/19 03:30 91 23 40 01/16/19 01:30 88 25 40 01/16/19 00:00 97.7 82 20 79/55 (63) 100 01/16/19 00:00 Mechanical Ventilator 01/15/19 23:43 80 01/15/19 23:30 86 21 40 01/15/19 21:05 91 22 40 01/15/19 20:00 40 01/15/19 20:00 97.8 80 24 108/47 (67) 100 01/15/19 20:00 Mechanical Ventilator 01/15/19 19:57 76 01/15/19 19:30 90 25 40 01/15/19 18:00 Mechanical Ventilator 01/15/19 16:55 92 26 40 01/15/19 16:00 76 01/15/19 16:00 40 01/15/19 16:00 97.7 79 26 158/90 (112) 100 01/15/19 16:00 Mechanical Ventilator 01/15/19 14:49 88 25 40 01/15/19 13:16 89 25 40 01/15/19 12:00 Mechanical Ventilator 01/15/19 12:00 79 01/15/19 12:00 98.1 79 26 148/67 (94) 100 01/15/19 10:39 98 01/15/19 10:38 87 25 40 01/15/19 10:30 40 01/15/19 09:30 40 01/15/19 09:25 95 30 40 01/15/19 08:00 97.0 81 26 170/44 (86) 99 01/15/19 08:00 76 01/15/19 08:00 Mechanical Ventilator 01/15/19 08:00 40 Intake and Output 01/15/19 01/16/19 18:59 06:59 Intake Total 640 ml 740 ml Balance 640 ml 740 ml Free Water 100 ml 100 ml Tube Feeding 540 ml 540 ml Other 100 ml # Bowel Movements 2 7 Laboratory Tests 01/15/19 19:00: White Blood Count 7.1, Red Blood Count 3.29L, Hemoglobin 8.3L, Hematocrit 25.4L , Mean Corpuscular Volume 77L, Mean Corpuscular Hemoglobin 25.1L, Mean Corpuscular Hemoglobin Concent 32.5, Red Cell Distribution Width 15.1H, Platelet Count 187, Mean Platelet Volume 4.9L, Neutrophils (%) (Auto) 77.0H, Lymphocytes (%) (Auto) 15.4L, Monocytes (%) (Auto) 6.5, Eosinophils (%) (Auto) 0.0, Basophils (%) (Auto) 1.1, Sodium Level 134L, Potassium Level 3.5, Chloride Level 95L, Carbon Dioxide Level 30, Anion Gap 9, Blood Urea Nitrogen 61H, Creatinine 5.2H, Estimat Glomerular Filtration Rate 11.1, Glucose Level 148H, Calcium Level 8.5, Total Bilirubin 0.3, Aspartate Amino Transf (AST/SGOT) 13L, Alanine Aminotransferase (ALT/SGPT) 13, Alkaline Phosphatase 147H, Total Protein 5.8L, Albumin 2.0L, Globulin 3.8, Albumin/Globulin Ratio 0.5L Height (Feet): 5 Height (Inches): 4.00 Weight (Pounds): 215 General Appearance: alert EENT: normal ENT inspection Neck: supple Cardiovascular: normal rate Respiratory/Chest: decreased breath sounds Abdomen: normal bowel sounds, non tender, soft Extremities: non-tender Jorge Escalera MD Jan 16, 2019 07:55
[2019-01-16 08:00] VITALS: BP 156/80
[2019-01-16] MEDS ORDERED: Lomotil 2.5mg tab ORAL SCH (08:00)
[2019-01-16] MEDS: Eliquis 2.5mg tablet GT SCH ×2 (08:00→18:02)
[2019-01-16 12:00] VITALS: BP 162/82
--- NOTE | 2019-01-16 13:47 | General Progress Note ---
Assessment/Plan Assessment/Plan: #Right heel diabetic foot ulcer without osteomyelitis #PAD #Right IJ DVT -seen by Podiatry and ID -s/p Vanco x 2 weeks during HD -continue Eliquis -Vascular Surgery and Hematology following #Acute Resp hypercapnic failure s/p tracheostomy #Angioedema #Large right pleural effusion # R side trapped lung -continue trach care -Remains vent-dependant, breathing trials ongoing -Right thoracentesis 01/01/19 with 2.3 lt removed. Post procedure CXR with R trapped lung. -continue vent weaning trials #End-stage renal disease, on dialysis -W- #RUE edema #Anasarca, ascites, scrotal edema, pleural effusion due to hypoalbuminemia -HD with UF per Nephrology -s/p PRBC transfusion during HD #Coronary artery disease -continue ASA, Coreg, atorvastatin -cardiology following #Type 2 DM -ISS #Acute metabolic encephalopathy -continue supportive care -Neurology following #history of chronic HCV infection #history of liver transplant -continue Prograf -GI following #Abdominal distension and ascites s/p therapeutic paracentesis -no nausea, vomiting or tenderness -continue supportive care -GI following -s/p paracentesis 12/31/18 4.1 lt #Dysphagia S/p PEG with PEG site cellulitis -s/p antibiotics per ID and GI -continue local wound care -tolerating tube feeds # FULL CODE Subjective Date patient seen: Jan 16, 2019 Time patient seen: 12:38 ROS Limited/Unobtainable: Yes Cardiovascular: Denies: chest pain Respiratory: Denies: cough Gastrointestinal/Abdominal: Denies: abdomen distended Allergies: Coded Allergies: CEPHALEXIN (Unverified Allergy, Unknown, 02/24/14) SULFAMETHOXAZOLE (Unverified Allergy, Unknown, 02/24/14) TRIMETHOPRIM (Unverified Allergy, Unknown, 02/24/14) Subjective Medicine follow up for acute resp failure, PAD, right heel infected DFU, ESRD, anasarca secondary to hypoalbuminemia, right IJ DVT. S/p 4 liter paracentesis and 2 liter thoracentesis No new issues Objective Last 24 Hour Vital Signs Date Time Temp Pulse Resp B/P (MAP) Pulse Ox O2 Delivery O2 Flow Rate FiO2 01/16/19 12:42 98 01/16/19 12:42 84 28 40 01/16/19 12:40 40 01/16/19 12:00 97.7 87 30 162/82 (108) 100 01/16/19 12:00 Mechanical Ventilator 01/16/19 10:40 86 22 40 01/16/19 10:40 40 01/16/19 09:06 92 24 40 01/16/19 08:00 98.1 78 26 156/80 (105) 100 01/16/19 08:00 77 01/16/19 08:00 40 01/16/19 08:00 Mechanical Ventilator 01/16/19 07:00 88 26 40 01/16/19 04:35 90 28 40 01/16/19 04:00 40 01/16/19 04:00 Mechanical Ventilator 01/16/19 04:00 97.7 87 24 104/98 (100) 100 01/16/19 03:54 85 01/16/19 03:30 91 23 40 01/16/19 01:30 88 25 40 01/16/19 00:00 97.7 82 20 79/55 (63) 100 01/16/19 00:00 Mechanical Ventilator 01/15/19 23:43 80 01/15/19 23:30 86 21 40 01/15/19 21:05 91 22 40 01/15/19 20:00 40 01/15/19 20:00 97.8 80 24 108/47 (67) 100 01/15/19 20:00 Mechanical Ventilator 01/15/19 19:57 76 01/15/19 19:30 90 25 40 01/15/19 18:00 Mechanical Ventilator 01/15/19 16:55 92 26 40 01/15/19 16:00 76 01/15/19 16:00 40 01/15/19 16:00 97.7 79 26 158/90 (112) 100 01/15/19 16:00 Mechanical Ventilator 01/15/19 14:49 88 25 40 Intake and Output 01/15/19 01/16/19 19:00 07:00 Intake Total 640 ml 740 ml Balance 640 ml 740 ml Free Water 100 ml 100 ml Tube Feeding 540 ml 540 ml Other 100 ml # Bowel Movements 2 7 Laboratory Tests 01/15/19 19:00: White Blood Count 7.1, Red Blood Count 3.29L, Hemoglobin 8.3L, Hematocrit 25.4L , Mean Corpuscular Volume 77L, Mean Corpuscular Hemoglobin 25.1L, Mean Corpuscular Hemoglobin Concent 32.5, Red Cell Distribution Width 15.1H, Platelet Count 187, Mean Platelet Volume 4.9L, Neutrophils (%) (Auto) 77.0H, Lymphocytes (%) (Auto) 15.4L, Monocytes (%) (Auto) 6.5, Eosinophils (%) (Auto) 0.0, Basophils (%) (Auto) 1.1, Sodium Level 134L, Potassium Level 3.5, Chloride Level 95L, Carbon Dioxide Level 30, Anion Gap 9, Blood Urea Nitrogen 61H, Creatinine 5.2H, Estimat Glomerular Filtration Rate 11.1, Glucose Level 148H, Calcium Level 8.5, Total Bilirubin 0.3, Aspartate Amino Transf (AST/SGOT) 13L, Alanine Aminotransferase (ALT/SGPT) 13, Alkaline Phosphatase 147H, Total Protein 5.8L, Albumin 2.0L, Globulin 3.8, Albumin/Globulin Ratio 0.5L Height (Feet): 5 Height (Inches): 4.00 Weight (Pounds): 215 General Appearance: alert Neck: normal alignment, supple Cardiovascular: normal rate, regular rhythm Respiratory/Chest: lungs clear, normal breath sounds, no respiratory distress Abdomen: non tender, soft Dennis Branham MD Jan 16, 2019 13:47
--- NOTE | 2019-01-16 14:15 | Neurology Progress Note ---
Interim History Interim History Interim History Mr. Restrepo feels a little better today. He is being weaned off the ventilator and is comfortable. He is more alert. His mood is better. He is in fair spirits. The right heel is less painful - and is healing well. The right upper extremity is less swollen and less painful. He has been able to sleep better. He is still artificially ventilated. He feels that his strength is stable. The mind is clearer. He is eager to eat. He denies any new neurological symptoms. He had PT today and exercised his legs and stood up for a few seconds. Review of Systems Neuro Review of Systems Benign. Objective Physical Exam Last Vital Signs Date Time Temp Pulse Resp B/P (MAP) Pulse Ox O2 Delivery O2 Flow Rate FiO2 01/16/19 12:42 98 01/16/19 12:42 84 28 40 01/16/19 12:00 97.7 162/82 (108) 01/16/19 12:00 Mechanical Ventilator Laboratory Tests Test 01/15/19 19:00 White Blood Count 7.1 K/UL (4.8-10.8) Red Blood Count 3.29 M/UL (4.70-6.10) L Hemoglobin 8.3 G/DL (14.2-18.0) L Hematocrit 25.4 % (42.0-52.0) L Mean Corpuscular Volume 77 FL (80-99) L Mean Corpuscular Hemoglobin 25.1 PG (27.0-31.0) L Mean Corpuscular Hemoglobin Concent 32.5 G/DL (32.0-36.0) Red Cell Distribution Width 15.1 % (11.6-14.8) H Platelet Count 187 K/UL (150-450) Mean Platelet Volume 4.9 FL (6.5-10.1) L Neutrophils (%) (Auto) 77.0 % (45.0-75.0) H Lymphocytes (%) (Auto) 15.4 % (20.0-45.0) L Monocytes (%) (Auto) 6.5 % (1.0-10.0) Eosinophils (%) (Auto) 0.0 % (0.0-3.0) Basophils (%) (Auto) 1.1 % (0.0-2.0) Sodium Level 134 MMOL/L (136-145) L Potassium Level 3.5 MMOL/L (3.5-5.1) Chloride Level 95 MMOL/L (98-107) L Carbon Dioxide Level 30 MMOL/L (21-32) Anion Gap 9 mmol/L (5-15) Blood Urea Nitrogen 61 mg/dL (7-18) H Creatinine 5.2 MG/DL (0.55-1.30) H Estimat Glomerular Filtration Rate 11.1 mL/min (>60) Glucose Level 148 MG/DL (74-106) H Calcium Level 8.5 MG/DL (8.5-10.1) Total Bilirubin 0.3 MG/DL (0.2-1.0) Aspartate Amino Transf (AST/SGOT) 13 U/L (15-37) L Alanine Aminotransferase (ALT/SGPT) 13 U/L (12-78) Alkaline Phosphatase 147 U/L (46-116) H Total Protein 5.8 G/DL (6.4-8.2) L Albumin 2.0 G/DL (3.4-5.0) L Globulin 3.8 g/dL Albumin/Globulin Ratio 0.5 (1.0-2.7) L Neurologic Exam Objective PHYSICAL EXAMINATION: GENERAL: He is a well-developed and well-nourished, pleasant gentleman, lying in bed, connected to a ventilator via a tracheostomy. HEAD: Normocephalic and atraumatic. EENT: Examination benign. NECK: No neck rigidity was observed. He did have a tracheostomy. NEUROLOGICAL EXAMINATION: MENTAL STATUS EXAMINATION: He was awake and alert. He was oriented to person, place and time. He was able to recall 3/3 words immediately and was able to remember them in 1 and 3 minutes. He was able to remember presidents [employer] through [employer]. His mathematical skills were fair. His visuo-spatial function was preserved. SPEECH: Could not be tested, but he was able to mouth words relatively well. LANGUAGE: He was able to comprehend and express himself relatively well. CRANIAL NERVES EXAMINATION: II: The visual mckeon were intact to confrontation testing. III, IV & : The external ocular movements were full and the pupils 3 mm in diameter, equal, round, regular, and reactive sluggishly to light. V: He had normal facial sensations, and the temporales, masseters, and pterygoids functioned normally. VII: He had normal facial expressions and no facial asymmetry. VIII: Hearing was decreased bilaterally with worse hearing on the left side compared to the right. IX: The palate moved symmetrically on phonation. X: Could not be tested. XI: The sternocleidomastoids and trapezii functioned normally. XII: The tongue was in the midline without any fasciculations or atrophy. MOTOR SYSTEM: The tone was normal in all four extremities. Examination of muscle mass revealed generalized muscle wasting. Examination of power revealed G 5/5 power except for G 4+/5 power in the iliopsoas muscles bilaterally, and G 4/5 in the right ankle and toes. Power in the right upper extremity was limited by pain. Power in the right foot was also limited by pain. SENSORY EXAMINATION: He had intact sensations to light touch. Other sensory modalities could not be tested adequately. REFLEXES: 1+ and bilaterally symmetrical at the biceps, triceps, brachioradialis , and knees, 0 at both ankles. The plantar responses were flexor bilaterally. COORDINATION: He performed well on [id number] testing. STANCE & GAIT: Were deferred. Impression/Recommendations Diagnostic Impression 1. Mr. Gregg Restrepo is a 69-year-old, right-handed, gentleman with past history of multiple medical problems including hypertension, diabetes mellitus, end-stage renal disease for which he is hemodialysis dependent, prior episodes of sepsis, and prior episodes of encephalopathy, who was admitted to [facility] on October 31, 2018. Following that, he has had a stormy hospital course including pneumonia and sepsis, right foot infection, respiratory failure for which he has needed tracheostomy and in addition he has exhibited an alteration in his mental state with some waxing and waning of his mental state. 2. He feels a little better today. He is being weaned off the ventilator and is comfortable. He is more alert. His mood is better. He is in fair spirits. The right heel is less painful - and is healing well. The right upper extremity is less swollen and less painful. He has been able to sleep better. He is still artificially ventilated. He feels that his strength is stable. The mind is clearer. He is eager to eat. He denies any new neurological symptoms. He had PT today and exercised his legs and stood up for a few seconds. 3. On neurological examination, at this time, he is fully oriented, his recent memory is normal. He has minimally impaired higher cognitive function. He is able to comprehend and express himself well. He does have mild G 4+/5 weakness in the iliopsoas muscles bilaterally. Power in the right upper extremity was limited by pain. Power in the right foot was also limited by pain. He had globally diminished deep tendon reflexes with loss of ankle jerks, but no definite focal or lateralizing neurological findings. 4. His latest laboratory data on my initial evaluation revealed that he was anemic with a hemoglobin of 10.8 G. His last blood gas performed on 11/14/2018 revealed that he had a pCO2 elevated at 56.4 with a normal pO2 of 88.3 and normal pH of 7.37. His latest chemistry panel revealed that he was mildly hyponatremic with a sodium of 130, and had a chloride of 90. The BUN was elevated at 75, creatinine elevated at 7.4, glucose elevated at 156, Hemoglobin A1c elevated at 6.9%, Alkaline phosphatase elevated at 131, and ProBNP greater than 35,000. His last B12 level on 11/07/2018 was 723. His last folate on was 18.6. His last TSH on 12/06/2018 was 4.82, which is minimally elevated. 5. The CT scan of the brain performed on 11/10/2018 was benign for acute intracranial pathology. 6. The EEG done on 12/08/18 revealed left temporal dysfunction. 7. The patient's history and neurological examination are most consistent with mild multifactorial encephalopathy, which apparently waxes and wanes, but no definite focal neurological dysfunction. His encephalopathy is stable. 8. He tells me that he had a brain bleed many years ago. I did review his imaging done at [facility] a few years ago and he had closed head injuries with subarachnoid and subdural blood in the past. 9. His mood has improved. 10. There has never been a doubt regarding his ability to make decisions regarding his medical care. 11. He is eager to eat again. Recommendations 1. Continue present management. 2. Continue to correct the patient's toxic metabolic imbalances. 3. Mobilize with PT/OT. 4. Consider getting swallowing evaluation so that he can be fed for enjoyment. 5. Observe. Pantera Cool M.D., M.S.P.H. Pantera Cool MD Jan 16, 2019 14:15
--- NOTE | 2019-01-16 14:17 | Nephrology Progress Note ---
Assessment/Plan Problem List: (1) ESRD (end stage renal disease) on dialysis (2) Foot ulcer (3) CHF (congestive heart failure) Assessment: Ej Fx 20 % (4) Pacemaker (5) Acute respiratory failure Assessment: with Co2 retention (6) G-tube site cellulitis Assessment ESRD with high K and SOB on admit Foot ulcer, likely infected High Troponin likely NSTMI Pacer , Pleural effusion s/p CABGS s/p Liver transplant Plan dialysis next 01/15 labs before HD noted BP low- improved on midodrine per consultants, GI GT site infection, topical antibiotic Neuro note appreciated placement in process vascular esteban regarding heel ulcer per Dr Mcgill pain med change to dilaudid GT Now has tracheostomy and PEG Adjust BP meds add nitro paste TID Antibiotics by ID per cardio and ID Podiatry and Vascular surgical fu ? DC planning? Subjective ROS Limited/Unobtainable: No Constitutional: Reports: malaise Objective Objective Last 24 Hour Vital Signs Date Time Temp Pulse Resp B/P (MAP) Pulse Ox O2 Delivery O2 Flow Rate FiO2 01/16/19 14:00 40 01/16/19 13:55 40 01/16/19 12:42 98 01/16/19 12:42 84 28 40 01/16/19 12:40 40 01/16/19 12:00 97.7 87 30 162/82 (108) 100 01/16/19 12:00 Mechanical Ventilator 01/16/19 10:40 86 22 40 01/16/19 10:40 40 01/16/19 09:06 92 24 40 01/16/19 08:00 98.1 78 26 156/80 (105) 100 01/16/19 08:00 77 01/16/19 08:00 40 01/16/19 08:00 Mechanical Ventilator 01/16/19 07:00 88 26 40 01/16/19 04:35 90 28 40 01/16/19 04:00 40 01/16/19 04:00 Mechanical Ventilator 01/16/19 04:00 97.7 87 24 104/98 (100) 100 01/16/19 03:54 85 01/16/19 03:30 91 23 40 01/16/19 01:30 88 25 40 01/16/19 00:00 97.7 82 20 79/55 (63) 100 01/16/19 00:00 Mechanical Ventilator 01/15/19 23:43 80 01/15/19 23:30 86 21 40 01/15/19 21:05 91 22 40 01/15/19 20:00 40 01/15/19 20:00 97.8 80 24 108/47 (67) 100 01/15/19 20:00 Mechanical Ventilator 01/15/19 19:57 76 01/15/19 19:30 90 25 40 01/15/19 18:00 Mechanical Ventilator 01/15/19 16:55 92 26 40 01/15/19 16:00 76 01/15/19 16:00 40 01/15/19 16:00 97.7 79 26 158/90 (112) 100 01/15/19 16:00 Mechanical Ventilator 01/15/19 14:49 88 25 40 Intake and Output 01/15/19 01/16/19 19:00 07:00 Intake Total 640 ml 740 ml Balance 640 ml 740 ml Free Water 100 ml 100 ml Tube Feeding 540 ml 540 ml Other 100 ml # Bowel Movements 2 7 Laboratory Tests 01/15/19 19:00: White Blood Count 7.1, Red Blood Count 3.29L, Hemoglobin 8.3L, Hematocrit 25.4L , Mean Corpuscular Volume 77L, Mean Corpuscular Hemoglobin 25.1L, Mean Corpuscular Hemoglobin Concent 32.5, Red Cell Distribution Width 15.1H, Platelet Count 187, Mean Platelet Volume 4.9L, Neutrophils (%) (Auto) 77.0H, Lymphocytes (%) (Auto) 15.4L, Monocytes (%) (Auto) 6.5, Eosinophils (%) (Auto) 0.0, Basophils (%) (Auto) 1.1, Sodium Level 134L, Potassium Level 3.5, Chloride Level 95L, Carbon Dioxide Level 30, Anion Gap 9, Blood Urea Nitrogen 61H, Creatinine 5.2H, Estimat Glomerular Filtration Rate 11.1, Glucose Level 148H, Calcium Level 8.5, Total Bilirubin 0.3, Aspartate Amino Transf (AST/SGOT) 13L, Alanine Aminotransferase (ALT/SGPT) 13, Alkaline Phosphatase 147H, Total Protein 5.8L, Albumin 2.0L, Globulin 3.8, Albumin/Globulin Ratio 0.5L Height (Feet): 5 Height (Inches): 4.00 Weight (Pounds): 215 General Appearance: no apparent distress EENT: other - trach Respiratory/Chest: decreased breath sounds Abdomen: other - PEG Objective no other change Nakul Stevens MD Jan 16, 2019 14:17
[2019-01-16 16:00] VITALS: BP 166/106
--- NOTE | 2019-01-16 17:25 | Infectious Diseases Prog Note ---
Assessment/Plan Problems: (1) Diarrhea Assessment & Plan: improved, with no infectious etiology so far , and negative stool for C diff toxin , and no pathogens on stool culture , use laxatives as needed , monitor clinically , encourage hydration (2) Foot ulcer Assessment & Plan: with MRSA grew out of it in the past, S/P vancomycin treatment with HD for two weeks, had vascular eval with revascularization to the right leg , S/P ulcer resection by hand carver . deep ulcer culture grew MRSA and E.coli with diphtheroids , possible colonization , with no evidence of active infection as per discussion with podiatry , no need to be started on antibiotics for now , will continue to monitor clinically and make recommendations as necessary . bone scan ruled out osteomyelitis of the heel before, couldn't do an MRI since on the vent . continue local wound care as per hand carver . (3) Thrush, oral Assessment & Plan: continue local nystatin as needed , S/P micafungin for three weeks empirically (4) HCV antibody positive Assessment & Plan: no evidence of active infection, with undetectable viral load , suspect due to previous infection , cleared, S/P liver transplant . (5) DM (diabetes mellitus) Assessment & Plan: recommend tight glycemic control to keep blood glucose between 100-140 (6) CHF (congestive heart failure) Assessment & Plan: on HD , renal is following, monitor daily weight (7) Severe tongue swelling Assessment & Plan: improving , s/p tracheostomy to protect his airway since respiratory status worsened . now improving, pulmonary is following (8) Pleural effusion Assessment & Plan: recurrent on the right, with lung collapse , S/P thoracentesis X 3 now with removal of 2.3 liters of clear fluids on 12/31/18 . await fluids culture and gram stain, with PH and Glucose level . PREVIOUS culture were negative with negative cytology. pulmonary is following (9) Ascites Assessment & Plan: S/P paracentesis with removal of 4.1 liters of fluids, culture so far is negative Assessment/Plan will continue to monitor patient on daily basis and make recommendations as necessary since he is high risk for recurrent infection Subjective Constitutional: Reports: no symptoms HEENT: Reports: no symptoms Respiratory: Reports: no symptoms Breasts: Reports: no symptoms Cardiovascular: Reports: no symptoms Gastrointestinal/Abdominal: Reports: no symptoms Genitourinary: Reports: no symptoms Neurologic: Reports: no symptoms Psychiatric: Reports: no symptoms Skin: Reports: no symptoms Endocrine: Reports: no symptoms Hematologic: Reports: no symptoms Musculoskeletal: Reports: no symptoms Allergies: Coded Allergies: CEPHALEXIN (Unverified Allergy, Unknown, 02/24/14) SULFAMETHOXAZOLE (Unverified Allergy, Unknown, 02/24/14) TRIMETHOPRIM (Unverified Allergy, Unknown, 02/24/14) Subjective he was comfortable, lying in bed, awake and responsive, no fever or chills, no significant secretions from the trach , no SOB . has left heel with wound VAC in place, but no draining coming out . no diarrhea . Objective Vital Signs Last 24 Hour Vital Signs Date Time Temp Pulse Resp B/P (MAP) Pulse Ox O2 Delivery O2 Flow Rate FiO2 01/16/19 15:55 88 30 40 01/16/19 14:00 40 01/16/19 13:55 40 01/16/19 12:42 98 01/16/19 12:42 84 28 40 01/16/19 12:40 40 01/16/19 12:00 97.7 87 30 162/82 (108) 100 01/16/19 12:00 Mechanical Ventilator 01/16/19 12:00 89 01/16/19 10:40 86 22 40 01/16/19 10:40 40 01/16/19 09:06 92 24 40 01/16/19 08:00 98.1 78 26 156/80 (105) 100 01/16/19 08:00 77 01/16/19 08:00 40 01/16/19 08:00 Mechanical Ventilator 01/16/19 07:00 88 26 40 01/16/19 04:35 90 28 40 01/16/19 04:00 40 01/16/19 04:00 Mechanical Ventilator 01/16/19 04:00 97.7 87 24 104/98 (100) 100 01/16/19 03:54 85 01/16/19 03:30 91 23 40 01/16/19 01:30 88 25 40 01/16/19 00:00 97.7 82 20 79/55 (63) 100 01/16/19 00:00 Mechanical Ventilator 01/15/19 23:43 80 01/15/19 23:30 86 21 40 01/15/19 21:05 91 22 40 01/15/19 20:00 40 01/15/19 20:00 97.8 80 24 108/47 (67) 100 01/15/19 20:00 Mechanical Ventilator 01/15/19 19:57 76 01/15/19 19:30 90 25 40 01/15/19 18:00 Mechanical Ventilator Height (Feet): 5 Height (Inches): 4.00 Weight (Pounds): 215 General Appearance: WD/WN, no acute distress HEENT: normocephalic, atraumatic, anicteric, mucous membranes moist, PERRL, EOMI, pharynx normal, supple, no JVD, status post trach Respiratory/Chest: chest wall non-tender, no respiratory distress, no accessory muscle use, decreased breath sounds, crackles/rales Cardiovascular: normal peripheral pulses, normal rate, regular rhythm, no gallop/murmur, no JVD Abdomen: normal bowel sounds, soft, non tender, no organomegaly, non distended , no mass, no scars Genitourinary: normal external genitalia Extremities: no cyanosis, no clubbing Skin: no rash, no lesions, no ulcers 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: 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, no motor/sensory deficits, alert, responsive Lymphatic: no neck adenopathy, no groin adenopathy Musculoskeletal: normal muscle bulk, no effusion Laboratory Tests Test 01/15/19 19:00 White Blood Count 7.1 K/UL (4.8-10.8) Red Blood Count 3.29 M/UL (4.70-6.10) L Hemoglobin 8.3 G/DL (14.2-18.0) L Hematocrit 25.4 % (42.0-52.0) L Mean Corpuscular Volume 77 FL (80-99) L Mean Corpuscular Hemoglobin 25.1 PG (27.0-31.0) L Mean Corpuscular Hemoglobin Concent 32.5 G/DL (32.0-36.0) Red Cell Distribution Width 15.1 % (11.6-14.8) H Platelet Count 187 K/UL (150-450) Mean Platelet Volume 4.9 FL (6.5-10.1) L Neutrophils (%) (Auto) 77.0 % (45.0-75.0) H Lymphocytes (%) (Auto) 15.4 % (20.0-45.0) L Monocytes (%) (Auto) 6.5 % (1.0-10.0) Eosinophils (%) (Auto) 0.0 % (0.0-3.0) Basophils (%) (Auto) 1.1 % (0.0-2.0) Sodium Level 134 MMOL/L (136-145) L Potassium Level 3.5 MMOL/L (3.5-5.1) Chloride Level 95 MMOL/L (98-107) L Carbon Dioxide Level 30 MMOL/L (21-32) Anion Gap 9 mmol/L (5-15) Blood Urea Nitrogen 61 mg/dL (7-18) H Creatinine 5.2 MG/DL (0.55-1.30) H Estimat Glomerular Filtration Rate 11.1 mL/min (>60) Glucose Level 148 MG/DL (74-106) H Calcium Level 8.5 MG/DL (8.5-10.1) Total Bilirubin 0.3 MG/DL (0.2-1.0) Aspartate Amino Transf (AST/SGOT) 13 U/L (15-37) L Alanine Aminotransferase (ALT/SGPT) 13 U/L (12-78) Alkaline Phosphatase 147 U/L (46-116) H Total Protein 5.8 G/DL (6.4-8.2) L Albumin 2.0 G/DL (3.4-5.0) L Globulin 3.8 g/dL Albumin/Globulin Ratio 0.5 (1.0-2.7) L Current Medications Medications (Trade) Dose Ordered Sig/Aleks Route PRN Reason Start Time Stop Time Status Last Admin Dose Admin Acetaminophen (Tylenol) 650 mg Q6H PRN GT Mild Pain/Temp > 100.5 12/21/18 16:00 01/20/19 15:59 01/16/19 00:57 Apixaban (Eliquis) 2.5 mg BID GT 01/01/19 21:00 01/31/19 20:59 01/16/19 08:00 Clotrimazole (Lotrimin) 1 applic DAILY TOPIC 01/08/19 18:00 02/07/19 17:59 01/16/19 08:00 Collagenase (Santyl) 1 applic DAILY TOPIC 12/29/18 09:00 01/28/19 08:59 01/16/19 08:00 Dextrose (Dextrose 50%) 25 ml Q30M PRN IV Hypoglycemia 12/31/18 23:00 01/30/19 22:59 Dextrose (Dextrose 50%) 50 ml Q30M PRN IV Hypoglycemia 12/31/18 23:00 01/30/19 22:59 Epoetin Vini (Epoetin Vini(ESRD on dialysis)) 10,000 unit FRI- SUBQ 01/06/19 21:00 02/05/19 20:59 01/15/19 21:52 Escitalopram Oxalate (Lexapro) 20 mg DAILY GT 01/05/19 09:00 02/04/19 08:59 01/16/19 08:00 Hydralazine HCl (Apresoline) 25 mg Q4H PRN GT bp over 160 syst 01/06/19 15:00 02/05/19 14:59 Insulin Aspart (NovoLOG) EVERY 6 HOURS SUBQ 01/01/19 00:00 01/31/19 00:00 01/16/19 12:54 Lansoprazole (Prevacid) 30 mg DAILY GT 01/16/19 09:00 02/15/19 08:59 01/16/19 08:06 Loperamide HCl (Imodium) 2 mg Q6H PRN GT Diarrhea 01/07/19 11:00 02/06/19 10:59 01/16/19 04:24 Mirtazapine (Remeron) 15 mg BEDTIME GT 12/21/18 21:00 01/20/19 20:59 01/15/19 21:52 Tacrolimus (Prograf) 2 mg MoWeFr@0000,1200 ORAL 12/28/18 00:00 01/27/19 00:00 01/15/19 12:05 Tacrolimus (Prograf) 2 mg SuTuThSa@0900,2100 ORAL 12/26/18 21:00 01/25/19 20:59 01/16/19 07:59 Francois Landis M.D. Jan 16, 2019 17:25
[2019-01-16 20:00] VITALS: BP 140/65
[2019-01-17] VITALS: BP 113/58
[2019-01-17 04:00] VITALS: BP 113/58
[2019-01-17] MEDS: NovoLOG Insulin Flexpen SUBQ SCH ×4 (05:40→23:09)
--- NOTE | 2019-01-17 07:31 | General Progress Note ---
Assessment/Plan Problem List: (1) Transplant ICD Codes: Z94.9 - Transplanted organ and tissue status, unspecified SNOMED: 700126210 (2) HTN (hypertension) ICD Codes: I10 - Essential (primary) hypertension SNOMED: 15415203 (3) Pacemaker ICD Codes: Z95.0 - Presence of cardiac pacemaker SNOMED: 902043827 (4) CHF (congestive heart failure) ICD Codes: I50.9 - Heart failure, unspecified SNOMED: 51996840 (5) DM (diabetes mellitus) ICD Codes: E11.9 - Type 2 diabetes mellitus without complications SNOMED: 17792558 (6) Foot ulcer ICD Codes: L97.509 - Non-pressure chronic ulcer of other part of unspecified foot with unspecified severity SNOMED: 61294943 Qualifiers: Qualified Codes: L97.511 - Non-pressure chronic ulcer of other part of right foot limited to breakdown of skin (7) ESRD (end stage renal disease) on dialysis ICD Codes: N18.6 - End stage renal disease; Z99.2 - Dependence on renal dialysis SNOMED: 116837108 Assessment/Plan: History of liver transplant, currently on Prograf History of cholecystectomy status post tracheostomy and PEG Infected G-tube site, fu ID recs C. difficile negative x 2 would care cx >> GRAM NEGATIVE BACILLUS CT AP reviewed, Moderate to large right pleural effusion. Moderate Ascites. s/p Paracentesis yielding 4.1 yield, r/o SBP >> negative for malignant cells Status post right thoracentesis yielding 2.1 L >> negative for malignant cells Continue G-tube feedings GT site care BID/prn topical abx around GT site per ID HD per nephro cont tacrolimus prn transfusions ppi zofran prn Imodium prn, Lomotil for persistent diarrhea follow labs supportive care outpatient Hep C tx, pending RNA PCR fu tacrolimus levels monitor LFTS Lomotil prn Subjective ROS Limited/Unobtainable: No Allergies: Coded Allergies: CEPHALEXIN (Unverified Allergy, Unknown, 02/24/14) SULFAMETHOXAZOLE (Unverified Allergy, Unknown, 02/24/14) TRIMETHOPRIM (Unverified Allergy, Unknown, 02/24/14) Subjective he pulled his NGT again Objective Last 24 Hour Vital Signs Date Time Temp Pulse Resp B/P (MAP) Pulse Ox O2 Delivery O2 Flow Rate FiO2 01/17/19 04:56 91 26 40 01/17/19 04:00 Mechanical Ventilator 01/17/19 04:00 76 01/17/19 04:00 97.8 80 21 113/58 (76) 100 01/17/19 04:00 40 01/17/19 03:23 90 25 40 01/17/19 01:37 81 25 40 01/17/19 00:00 98.0 68 24 113/58 (76) 99 01/17/19 00:00 Mechanical Ventilator 01/16/19 23:37 76 01/16/19 23:13 89 22 40 01/16/19 20:49 83 24 40 01/16/19 20:00 Mechanical Ventilator 01/16/19 20:00 40 01/16/19 20:00 97.7 82 25 140/65 (90) 100 01/16/19 19:23 80 01/16/19 18:52 81 21 40 01/16/19 17:00 80 26 40 01/16/19 16:00 97.7 77 24 166/106 (126) 100 01/16/19 16:00 89 01/16/19 16:00 Mechanical Ventilator 01/16/19 15:55 88 30 40 01/16/19 14:00 40 01/16/19 13:55 40 01/16/19 12:42 98 01/16/19 12:42 84 28 40 01/16/19 12:40 40 01/16/19 12:00 97.7 87 30 162/82 (108) 100 01/16/19 12:00 Mechanical Ventilator 01/16/19 12:00 89 01/16/19 10:40 86 22 40 01/16/19 10:40 40 01/16/19 09:06 92 24 40 01/16/19 08:00 98.1 78 26 156/80 (105) 100 01/16/19 08:00 77 01/16/19 08:00 40 01/16/19 08:00 Mechanical Ventilator Intake and Output 01/16/19 01/17/19 18:59 06:59 Intake Total 690 ml 840 ml Balance 690 ml 840 ml Free Water 150 ml 300 ml Tube Feeding 540 ml 540 ml # Bowel Movements 2 2 Height (Feet): 5 Height (Inches): 4.00 Weight (Pounds): 215 General Appearance: alert EENT: normal ENT inspection Neck: supple Cardiovascular: normal rate Respiratory/Chest: decreased breath sounds Abdomen: normal bowel sounds, non tender, soft Extremities: non-tender Jorge Escalera MD Jan 17, 2019 07:31
[2019-01-17 08:00] VITALS: BP 169/92
--- NOTE | 2019-01-17 09:00 | Cardiac Electrophysiology PN ---
Assessment/Plan Assessment/Plan 1. Troponin leak due to renal failure. No CP or SOB. Nl EF 2. Hx of CABG. On Coreg, aspirin and Lipitor 3. NSVT in setting of old CA and CABG. EF 55%. Continue Coreg. No Syncope 4. CHF and right pleural effusion. On hemodialysis. S/P Thoracentesis 5. S/P Right sided [employer] DDD pacemaker with Nl Fx. 6. End-stage renal disease, on hemodialysis per Dr. Stevens 7. Multilevel AOD LE's with non-healing Right foot ulcer. Had abdominal angiogram per Dr Salmeron Antibiotic per Dr. Landis. FU by Dr. Huizar S/P peripheral intervention by Dr. Salmeron 12/22/18 Right foot on Wound-Vac 8. History of liver transplant on Prograf 9. Respiratory failure, S/P tracheostomy. 10. Pleural effusion. s/p 2300 cc thoracentesis 01/01/19 11. Dysphagia, S/P PEG DW RN Subjective Subjective Ne events. Alert in NAD. Objective Last 24 Hour Vital Signs Date Time Temp Pulse Resp B/P (MAP) Pulse Ox O2 Delivery O2 Flow Rate FiO2 01/17/19 07:00 92 26 40 01/17/19 04:56 91 26 40 01/17/19 04:00 Mechanical Ventilator 01/17/19 04:00 76 01/17/19 04:00 97.8 80 21 113/58 (76) 100 01/17/19 04:00 40 01/17/19 03:23 90 25 40 01/17/19 01:37 81 25 40 01/17/19 00:00 98.0 68 24 113/58 (76) 99 01/17/19 00:00 Mechanical Ventilator 01/16/19 23:37 76 01/16/19 23:13 89 22 40 01/16/19 20:49 83 24 40 01/16/19 20:00 Mechanical Ventilator 01/16/19 20:00 40 01/16/19 20:00 97.7 82 25 140/65 (90) 100 01/16/19 19:23 80 01/16/19 18:52 81 21 40 01/16/19 17:00 80 26 40 01/16/19 16:00 97.7 77 24 166/106 (126) 100 01/16/19 16:00 89 01/16/19 16:00 Mechanical Ventilator 01/16/19 15:55 88 30 40 01/16/19 14:00 40 01/16/19 13:55 40 01/16/19 12:42 98 01/16/19 12:42 84 28 40 01/16/19 12:40 40 01/16/19 12:00 97.7 87 30 162/82 (108) 100 01/16/19 12:00 Mechanical Ventilator 01/16/19 12:00 89 01/16/19 10:40 86 22 40 01/16/19 10:40 40 01/16/19 09:06 92 24 40 Intake and Output 01/16/19 01/17/19 18:59 06:59 Intake Total 690 ml 840 ml Balance 690 ml 840 ml Free Water 150 ml 300 ml Tube Feeding 540 ml 540 ml # Bowel Movements 2 2 Objective HEAD AND NECK: No JVD. Tracheostomy intact LUNGS: Clear CARDIOVASCULAR: Irregular S1 and S2 with no gallop. Sternotomy is intact Pacemaker in the right subclavian ABDOMEN: Soft. PEG in place EXTREMITIES: 1+ pitting edema. Right heel in dressing and connected to WoundVac Shivam Sharpe MD Jan 17, 2019 09:00
[2019-01-17] MEDS: Eliquis 2.5mg tablet GT SCH ×2 (09:22→18:13)
--- NOTE | 2019-01-17 11:22 | General Progress Note ---
Assessment/Plan Assessment/Plan: #Right heel diabetic foot ulcer without osteomyelitis #PAD #Right IJ DVT -seen by Podiatry and ID -s/p Vanco x 2 weeks during HD -continue Eliquis -Vascular Surgery and Hematology following #Acute Resp hypercapnic failure s/p tracheostomy #Angioedema #Large right pleural effusion # R side trapped lung -continue trach care -Remains vent-dependant, breathing trials ongoing -Right thoracentesis 01/01/19 with 2.3 lt removed. Post procedure CXR with R trapped lung. -continue vent weaning trials #End-stage renal disease, on dialysis -W- #RUE edema #Anasarca, ascites, scrotal edema, pleural effusion due to hypoalbuminemia -HD with UF per Nephrology -s/p PRBC transfusion during HD #Coronary artery disease -continue ASA, Coreg, atorvastatin -cardiology following #Type 2 DM -ISS #Acute metabolic encephalopathy -continue supportive care -Neurology following #history of chronic HCV infection #history of liver transplant -continue Prograf -GI following #Abdominal distension and ascites s/p therapeutic paracentesis -no nausea, vomiting or tenderness -continue supportive care -GI following -s/p paracentesis 12/31/18 4.1 lt #Dysphagia S/p PEG with PEG site cellulitis -s/p antibiotics per ID and GI -continue local wound care -tolerating tube feeds # FULL CODE Subjective Date patient seen: Jan 17, 2019 Time patient seen: 11:20 ROS Limited/Unobtainable: Yes Cardiovascular: Denies: chest pain Respiratory: Denies: cough Gastrointestinal/Abdominal: Denies: abdominal pain Allergies: Coded Allergies: CEPHALEXIN (Unverified Allergy, Unknown, 02/24/14) SULFAMETHOXAZOLE (Unverified Allergy, Unknown, 02/24/14) TRIMETHOPRIM (Unverified Allergy, Unknown, 02/24/14) Subjective Medicine follow up for acute resp failure, PAD, right heel infected DFU, ESRD, anasarca secondary to hypoalbuminemia, right IJ DVT. S/p 4 liter paracentesis and 2 liter thoracentesis No new issues Objective Last 24 Hour Vital Signs Date Time Temp Pulse Resp B/P (MAP) Pulse Ox O2 Delivery O2 Flow Rate FiO2 01/17/19 10:30 78 31 40 01/17/19 10:30 100 01/17/19 08:55 88 24 40 01/17/19 08:00 40 01/17/19 08:00 Mechanical Ventilator 01/17/19 08:00 76 01/17/19 08:00 97.7 75 24 169/92 (117) 100 01/17/19 07:00 92 26 40 01/17/19 04:56 91 26 40 01/17/19 04:00 Mechanical Ventilator 01/17/19 04:00 76 01/17/19 04:00 97.8 80 21 113/58 (76) 100 01/17/19 04:00 40 01/17/19 03:23 90 25 40 01/17/19 01:37 81 25 40 01/17/19 00:00 98.0 68 24 113/58 (76) 99 01/17/19 00:00 Mechanical Ventilator 01/16/19 23:37 76 01/16/19 23:13 89 22 40 01/16/19 20:49 83 24 40 01/16/19 20:00 Mechanical Ventilator 01/16/19 20:00 40 01/16/19 20:00 97.7 82 25 140/65 (90) 100 01/16/19 19:23 80 01/16/19 18:52 81 21 40 01/16/19 17:00 80 26 40 01/16/19 16:00 97.7 77 24 166/106 (126) 100 01/16/19 16:00 89 01/16/19 16:00 Mechanical Ventilator 01/16/19 15:55 88 30 40 01/16/19 14:00 40 01/16/19 13:55 40 01/16/19 12:42 98 01/16/19 12:42 84 28 40 01/16/19 12:40 40 01/16/19 12:00 97.7 87 30 162/82 (108) 100 01/16/19 12:00 Mechanical Ventilator 01/16/19 12:00 89 Intake and Output 01/16/19 01/17/19 18:59 06:59 Intake Total 690 ml 840 ml Balance 690 ml 840 ml Free Water 150 ml 300 ml Tube Feeding 540 ml 540 ml # Bowel Movements 2 2 Height (Feet): 5 Height (Inches): 4.00 Weight (Pounds): 215 General Appearance: no apparent distress, alert Cardiovascular: normal rate, regular rhythm Respiratory/Chest: lungs clear, normal breath sounds Abdomen: non tender, soft, no organomegaly Dennis Branham MD Jan 17, 2019 11:22
[2019-01-17 12:00] VITALS: BP 176/96
--- NOTE | 2019-01-17 14:16 | Hematology/Onc Progress Note ---
Assessment/Plan Assessment/Plan Assessment and Recs: # Anemia of chronic disease due to underlying chronic medical issues, range has been 8-11 --> ferritin is 633, tibc is low --> No evidence of hemolysis is noted, peripheral smear has been reviewed. --> Epogen with HD 3x/wk --> Medications have been reviewed --> evaluate with Gi team prn --> transfuse if hgb is < 7 (will trend CBC daily) --> hgb trend 11.2-->10.9-->10.8-->10.7-->10.2-->9.7-->9.7-->8.5-->9-->9.2-->8.4 -->7.7-->8.8-->9.1-->8.6-->8.3 --> s/p transfusion on 01/06 # Failure to thrive is likely related to poor overall status, poor functional status --> GT++ --> with multiple decub ulcerations that are noted, seen by id/surgery --> s/p trach as well --> cea is wnl # Acute non-occlusive dvt, right extremity ultrasound (acute non-occlusive DVT in internal jugular) --> currently is on eliquis 2.5mg po bid --> do not recommend a SVC filter --> given prior bleeding risk, hold off on heparin gtt --> vasc surgeon is aware, seek recs # Coagulopathy likely secondary to decreased Vitk dependent cofactors (high INR , PT) --> monitor closely for any evidence of bleeding. Currently is on eliquis --> VIT K on prn basis sq can be administered --> recently has improved inr 1.2-->1.1-->1.2-->1.1 # Acute respiratory failure is now s/p trach to vent --> as per surgery recs # Ground glass opacities present on imaging of lung --> with pleural effusions, s/p drainage at this time --> no evidence for malignancy is noted --> as per pulm/id # Pleural effusion --> s/p thoracentesis, s/p paracentesis 12/31 --> no evidence of malignancy -->01/14 cxr: Interstitial edema, small left pleural effusion # Hyperkalemia --> kayxelate on prn basis per renal --> monitor K # Renal failure --> per renal recs, appreciated --> getting hd as per schedule # Altered level of consciousness --> currently as per baseline --> neuro eval prn # PAD off heparin gtt and now on eliquis --> per vasc and cards --> 12/22 s/p right leg angiogram with intervention --> on eliquis, continue # Gt tube cellulitis, on topical abx as per id around site The timing of this note does not necessarily reflect the time of the patient was seen. Greatly appreciate consultation! Subjective Allergies: Coded Allergies: CEPHALEXIN (Unverified Allergy, Unknown, 02/24/14) SULFAMETHOXAZOLE (Unverified Allergy, Unknown, 02/24/14) TRIMETHOPRIM (Unverified Allergy, Unknown, 02/24/14) Subjective 11/30: comfortable, on abx, no complaints, on t-piece 12/01: to have hd done potentially tomorrow, is more alert/awake 12/02: no major bleeding, hgb remains approx 11, no changes 12/03: no events, breathing mildly better, hgb is improved 12/04: on vent/trach, no major changes, sr ekg 12/10: small amount of secretions, on trach/vent, no issues otherwise 12/11: no major issues, no complaints, labs reviewed, no sig changes 12/13: no events to report, no fevers or chills, awaiting placement 12/14: no changes, no major events to report, no fevers or chills 12/15: pending placement, getting gt feeds and hd as per renal 12/16: labs have been reviewed, cbc noted, no changes 12/17: no events, no fevers, no cp, hgb remains stable 12/18: restarted on heparin gtt, seen by pulclarisa denise 12/20: continues to be on heparin gtt, no bleeding reported, no f/c 12/21: hd for today, no fevers or chils, off hep gtt on eliquis 12/22: to get hd tomorrow, today is s/p right leg angiogram with intervention 12/23: hgb remins stable, no fevers or chills reported 12/24: no events, no bleeding, vitals reviewed, cbc stable 12/25: no events, no bleeding, on vent, hgb 9 12/27: no changes, no f/c, no night swearts, seen with other providers 12/28: right extremity ultrasound (acute non-occlusive DVT in internal jugular, on eliquis 12/29: no events, no night sweats, seen by gi, no bleeding 12/30: cbc has been reviewed, no f/c, no night sweats reported 12/31: no events, eliquis is on hold cbc has been reviewed, bp elevated 01/01: no fevers or chills, cbc reviewed, hgb 9.3, getting HD 01/02: no events noted, getting norco for pain, hgb stable 01/04: not events to report, no bleeding, refusing ivl at this time, cbc reviewed 01/05: no fevers or chills noted, s/p trach/vent, no f/c, no chills noted 01/06: no events, to get 1 unit prbc today, renal seen, on abx 01/07: hd for tomorrow, seen by renal, no events, cbc reviewed 01/08: getting Hd today, seen by renal, no major events, in sr 01/10: no events to report, to get hd tomorrow, hgb stable 01/11: on vent/trach, gtube, tolerating treatment well, hd today 01/12: remains nonverbal, stable, on vent/trach, no fc 01/13: no events noted, cbc has been reviewed 01/14: thora and para fluid still neg for malignancy, no bleeding 01/15: Pt examined at bedside. No acute events. Pt refusing IV access per nursing per nursing team. 01/17: Pt is awake and alert. Pt in stable condition. Hgb trending down: 8.3 will continue to monitor Objective Objective Current Medications Medications (Trade) Dose Ordered Sig/Aleks Route PRN Reason Start Time Stop Time Status Last Admin Dose Admin Acetaminophen (Tylenol) 650 mg Q6H PRN GT Mild Pain/Temp > 100.5 12/21/18 16:00 01/20/19 15:59 01/16/19 00:57 Apixaban (Eliquis) 2.5 mg BID GT 01/01/19 21:00 01/31/19 20:59 01/17/19 09:22 Clotrimazole (Lotrimin) 1 applic DAILY TOPIC 01/08/19 18:00 02/07/19 17:59 01/17/19 09:21 Collagenase (Santyl) 1 applic DAILY TOPIC 12/29/18 09:00 01/28/19 08:59 01/17/19 09:17 Dextrose (Dextrose 50%) 25 ml Q30M PRN IV Hypoglycemia 12/31/18 23:00 01/30/19 22:59 Dextrose (Dextrose 50%) 50 ml Q30M PRN IV Hypoglycemia 12/31/18 23:00 01/30/19 22:59 Epoetin Vini (Epoetin Vini(ESRD on dialysis)) 10,000 unit SUBQ 01/06/19 21:00 02/05/19 20:59 01/15/19 21:52 Escitalopram Oxalate (Lexapro) 20 mg DAILY GT 01/05/19 09:00 02/04/19 08:59 01/17/19 09:17 Hydralazine HCl (Apresoline) 25 mg Q4H PRN GT bp over 160 syst 01/06/19 15:00 02/05/19 14:59 Insulin Aspart (NovoLOG) EVERY 6 HOURS SUBQ 01/01/19 00:00 01/31/19 00:00 01/17/19 12:08 Lansoprazole (Prevacid) 30 mg DAILY GT 01/16/19 09:00 02/15/19 08:59 01/17/19 09:17 Loperamide HCl (Imodium) 2 mg Q6H PRN GT Diarrhea 01/07/19 11:00 02/06/19 10:59 01/16/19 04:24 Mirtazapine (Remeron) 15 mg BEDTIME GT 12/21/18 21:00 01/20/19 20:59 01/16/19 20:09 Tacrolimus (Prograf) 2 mg MoWeFr@0000,1200 ORAL 12/28/18 00:00 01/27/19 00:00 01/15/19 12:05 Tacrolimus (Prograf) 2 mg SuTuThSa@0900,2100 ORAL 12/26/18 21:00 01/25/19 20:59 01/17/19 09:21 Last 24 Hour Vital Signs Date Time Temp Pulse Resp B/P (MAP) Pulse Ox O2 Delivery O2 Flow Rate FiO2 01/17/19 13:30 40 01/17/19 13:23 88 32 40 01/17/19 12:00 Mechanical Ventilator 01/17/19 12:00 40 01/17/19 10:30 40 01/17/19 10:30 78 31 40 01/17/19 10:30 100 01/17/19 08:55 88 24 40 01/17/19 08:00 40 01/17/19 08:00 Mechanical Ventilator 01/17/19 08:00 76 01/17/19 08:00 97.7 75 24 169/92 (117) 100 01/17/19 07:00 92 26 40 01/17/19 04:56 91 26 40 01/17/19 04:00 Mechanical Ventilator 01/17/19 04:00 76 01/17/19 04:00 97.8 80 21 113/58 (76) 100 01/17/19 04:00 40 01/17/19 03:23 90 25 40 01/17/19 01:37 81 25 40 01/17/19 00:00 98.0 68 24 113/58 (76) 99 01/17/19 00:00 Mechanical Ventilator 01/16/19 23:37 76 01/16/19 23:13 89 22 40 01/16/19 20:49 83 24 40 01/16/19 20:00 Mechanical Ventilator 01/16/19 20:00 40 01/16/19 20:00 97.7 82 25 140/65 (90) 100 01/16/19 19:23 80 01/16/19 18:52 81 21 40 01/16/19 17:00 80 26 40 01/16/19 16:00 97.7 77 24 166/106 (126) 100 01/16/19 16:00 89 01/16/19 16:00 Mechanical Ventilator 01/16/19 15:55 88 30 40 01/16/19 14:00 40 01/16/19 13:55 40 01/16/19 12:42 98 01/16/19 12:42 84 28 40 01/16/19 12:40 40 01/16/19 12:00 97.7 87 30 162/82 (108) 100 01/16/19 12:00 Mechanical Ventilator 01/16/19 12:00 89 01/16/19 10:40 86 22 40 01/16/19 10:40 40 01/16/19 09:06 92 24 40 01/16/19 08:00 98.1 78 26 156/80 (105) 100 01/16/19 08:00 77 01/16/19 08:00 40 01/16/19 08:00 Mechanical Ventilator 01/16/19 07:00 88 26 40 01/16/19 04:35 90 28 40 01/16/19 04:00 40 01/16/19 04:00 Mechanical Ventilator 01/16/19 04:00 97.7 87 24 104/98 (100) 100 01/16/19 03:54 85 01/16/19 03:30 91 23 40 01/16/19 01:30 88 25 40 01/16/19 00:00 97.7 82 20 79/55 (63) 100 01/16/19 00:00 Mechanical Ventilator 01/15/19 23:43 80 01/15/19 23:30 86 21 40 01/15/19 21:05 91 22 40 01/15/19 20:00 40 01/15/19 20:00 97.8 80 24 108/47 (67) 100 01/15/19 20:00 Mechanical Ventilator 01/15/19 19:57 76 01/15/19 19:30 90 25 40 01/15/19 18:00 Mechanical Ventilator 01/15/19 16:55 92 26 40 01/15/19 16:00 76 01/15/19 16:00 40 01/15/19 16:00 97.7 79 26 158/90 (112) 100 01/15/19 16:00 Mechanical Ventilator 01/15/19 14:49 88 25 40 Intake and Output 01/16/19 01/17/19 19:00 07:00 Intake Total 690 ml 840 ml Balance 690 ml 840 ml Free Water 150 ml 300 ml Tube Feeding 540 ml 540 ml # Bowel Movements 2 2 Labs Test 01/15/19 19:00 White Blood Count 7.1 K/UL (4.8-10.8) Red Blood Count 3.29 M/UL (4.70-6.10) Hemoglobin 8.3 G/DL (14.2-18.0) Hematocrit 25.4 % (42.0-52.0) Mean Corpuscular Volume 77 FL (80-99) Mean Corpuscular Hemoglobin 25.1 PG (27.0-31.0) Mean Corpuscular Hemoglobin Concent 32.5 G/DL (32.0-36.0) Red Cell Distribution Width 15.1 % (11.6-14.8) Platelet Count 187 K/UL (150-450) Mean Platelet Volume 4.9 FL (6.5-10.1) Neutrophils (%) (Auto) 77.0 % (45.0-75.0) Lymphocytes (%) (Auto) 15.4 % (20.0-45.0) Monocytes (%) (Auto) 6.5 % (1.0-10.0) Eosinophils (%) (Auto) 0.0 % (0.0-3.0) Basophils (%) (Auto) 1.1 % (0.0-2.0) Sodium Level 134 MMOL/L (136-145) Potassium Level 3.5 MMOL/L (3.5-5.1) Chloride Level 95 MMOL/L (98-107) Carbon Dioxide Level 30 MMOL/L (21-32) Anion Gap 9 mmol/L (5-15) Blood Urea Nitrogen 61 mg/dL (7-18) Creatinine 5.2 MG/DL (0.55-1.30) Estimat Glomerular Filtration Rate 11.1 mL/min (>60) Glucose Level 148 MG/DL (74-106) Calcium Level 8.5 MG/DL (8.5-10.1) Total Bilirubin 0.3 MG/DL (0.2-1.0) Aspartate Amino Transf (AST/SGOT) 13 U/L (15-37) Alanine Aminotransferase (ALT/SGPT) 13 U/L (12-78) Alkaline Phosphatase 147 U/L (46-116) Total Protein 5.8 G/DL (6.4-8.2) Albumin 2.0 G/DL (3.4-5.0) Globulin 3.8 g/dL Albumin/Globulin Ratio 0.5 (1.0-2.7) Height (Feet): 5 Height (Inches): 4.00 Weight (Pounds): 215 Objective PE General Appearance: mild distress, moderate distress Lines, tubes and drains: peripheral HEENT: EOMI, ++ thrush, tonsils swollen ++trach Neck: normal inspection Respiratory/Chest: decreased breath sounds, accessory muscle use Cardiovascular/Chest: tachycardia Abdomen: soft, no organomegaly, no mass, ++ peg Extremities: other Skin Exam: warm/dry, rash Neurologic: alert, responsive Zacarias Khoury MD Jan 17, 2019 14:16
--- NOTE | 2019-01-17 14:53 | Nephrology Progress Note ---
Assessment/Plan Problem List: (1) ESRD (end stage renal disease) on dialysis (2) Foot ulcer (3) CHF (congestive heart failure) Assessment: Ej Fx 20 % (4) Pacemaker (5) Acute respiratory failure Assessment: with Co2 retention (6) G-tube site cellulitis Assessment ESRD with high K and SOB on admit Foot ulcer, likely infected High Troponin likely NSTMI Pacer , Pleural effusion s/p CABGS s/p Liver transplant Plan dialysis next 01/15 labs before HD noted BP low- improved on midodrine per consultants, GI GT site infection, topical antibiotic Neuro note appreciated placement in process vascular esteban regarding heel ulcer per Dr Mcgill pain med change to dilaudid GT Now has tracheostomy and PEG Adjust BP meds add nitro paste TID Antibiotics by ID per cardio and ID Podiatry and Vascular surgical fu ? DC planning? Subjective ROS Limited/Unobtainable: No Objective Objective Last 24 Hour Vital Signs Date Time Temp Pulse Resp B/P (MAP) Pulse Ox O2 Delivery O2 Flow Rate FiO2 01/17/19 13:30 40 01/17/19 13:23 88 32 40 01/17/19 12:00 Mechanical Ventilator 01/17/19 12:00 87 01/17/19 12:00 40 01/17/19 10:30 40 01/17/19 10:30 78 31 40 01/17/19 10:30 100 01/17/19 08:55 88 24 40 01/17/19 08:00 40 01/17/19 08:00 Mechanical Ventilator 01/17/19 08:00 76 01/17/19 08:00 97.7 75 24 169/92 (117) 100 01/17/19 07:00 92 26 40 01/17/19 04:56 91 26 40 01/17/19 04:00 Mechanical Ventilator 01/17/19 04:00 76 01/17/19 04:00 97.8 80 21 113/58 (76) 100 01/17/19 04:00 40 01/17/19 03:23 90 25 40 01/17/19 01:37 81 25 40 01/17/19 00:00 98.0 68 24 113/58 (76) 99 01/17/19 00:00 Mechanical Ventilator 01/16/19 23:37 76 01/16/19 23:13 89 22 40 01/16/19 20:49 83 24 40 01/16/19 20:00 Mechanical Ventilator 01/16/19 20:00 40 01/16/19 20:00 97.7 82 25 140/65 (90) 100 01/16/19 19:23 80 01/16/19 18:52 81 21 40 01/16/19 17:00 80 26 40 01/16/19 16:00 97.7 77 24 166/106 (126) 100 01/16/19 16:00 89 01/16/19 16:00 Mechanical Ventilator 01/16/19 15:55 88 30 40 Intake and Output 01/16/19 01/17/19 19:00 07:00 Intake Total 690 ml 840 ml Balance 690 ml 840 ml Free Water 150 ml 300 ml Tube Feeding 540 ml 540 ml # Bowel Movements 2 2 Height (Feet): 5 Height (Inches): 4.00 Weight (Pounds): 215 General Appearance: no apparent distress Objective no other change Nakul Stevens MD Jan 17, 2019 14:53
--- NOTE | 2019-01-17 15:16 | Neurology Progress Note ---
Interim History Interim History Interim History Mr. Restrepo feels better. He is being weaned off the ventilator and is comfortable. He is more alert. His mood is better. He is in fair spirits. The right heel is less painful - and is healing well. The right upper extremity is less swollen and less painful. He has been able to sleep better. He is still artificially ventilated. He feels that his strength is stable. The mind is clearer. He is eager to eat. He denies any new neurological symptoms. He is still worried about his hearing. Review of Systems Neuro Review of Systems Benign. Objective Physical Exam Last Vital Signs Date Time Temp Pulse Resp B/P (MAP) Pulse Ox O2 Delivery O2 Flow Rate FiO2 01/17/19 13:30 40 01/17/19 13:23 88 32 01/17/19 12:00 Mechanical Ventilator 01/17/19 10:30 100 01/17/19 08:00 97.7 169/92 (117) Neurologic Exam Objective PHYSICAL EXAMINATION: GENERAL: He is a well-developed and well-nourished, pleasant gentleman, lying in bed, connected to a ventilator via a tracheostomy. HEAD: Normocephalic and atraumatic. EENT: Examination benign. NECK: No neck rigidity was observed. He did have a tracheostomy. NEUROLOGICAL EXAMINATION: MENTAL STATUS EXAMINATION: He was awake and alert. He was oriented to person, place and time. He was able to recall 3/3 words immediately and was able to remember them in 1 and 3 minutes. He was able to remember presidents Trump through Mak Keny. His mathematical skills were fair. His visuospatial function was preserved. SPEECH: Could not be tested, but he was able to mouth words relatively well. LANGUAGE: He was able to comprehend and express himself relatively well. CRANIAL NERVES EXAMINATION: II: The visual mckeon were intact to confrontation testing. III, IV & : The external ocular movements were full and the pupils 3 mm in diameter, equal, round, regular, and reactive sluggishly to light. V: He had normal facial sensations, and the temporales, masseters, and pterygoids functioned normally. VII: He had normal facial expressions and no facial asymmetry. VIII: Hearing was decreased bilaterally with worse hearing on the left side compared to the right. IX: The palate moved symmetrically on phonation. X: Could not be tested. XI: The sternocleidomastoids and trapezii functioned normally. XII: The tongue was in the midline without any fasciculations or atrophy. MOTOR SYSTEM: The tone was normal in all four extremities. Examination of muscle mass revealed generalized muscle wasting. Examination of power revealed G 5/5 power except for G 4+/5 power in the iliopsoas muscles bilaterally, and G 4/5 in the right ankle and toes. Power in the right upper extremity was limited by pain. Power in the right foot was also limited by pain. SENSORY EXAMINATION: He had intact sensations to light touch. Other sensory modalities could not be tested adequately. REFLEXES: 1+ and bilaterally symmetrical at the biceps, triceps, brachioradialis , and knees, 0 at both ankles. The plantar responses were flexor bilaterally. COORDINATION: He performed well on [id number] testing. STANCE & GAIT: Were deferred. Impression/Recommendations Diagnostic Impression 1. Mr. Gregg Restrepo is a 69-year-old, right-handed, gentleman with past history of multiple medical problems including hypertension, diabetes mellitus, end-stage renal disease for which he is hemodialysis dependent, prior episodes of sepsis, and prior episodes of encephalopathy, who was admitted to [facility] on October 31, 2018. Following that, he has had a stormy hospital course including pneumonia and sepsis, right foot infection, respiratory failure for which he has needed tracheostomy and in addition he has exhibited an alteration in his mental state with some waxing and waning of his mental state. 2. He feels better. He is being weaned off the ventilator and is comfortable. He is more alert. His mood is better. He is in fair spirits. The right heel is less painful - and is healing well. The right upper extremity is less swollen and less painful. He has been able to sleep better. He is still artificially ventilated. He feels that his strength is stable. The mind is clearer. He is eager to eat. He denies any new neurological symptoms. He is still worried about his hearing. 3. On neurological examination, at this time, he is fully oriented, his recent memory is normal. He has minimally impaired higher cognitive function. He is able to comprehend and express himself well. He does have mild G 4+/5 weakness in the iliopsoas muscles bilaterally. Power in the right upper extremity was limited by pain. Power in the right foot was also limited by pain. He had globally diminished deep tendon reflexes with loss of ankle jerks, but no definite focal or lateralizing neurological findings. 4. His latest laboratory data on my initial evaluation revealed that he was anemic with a hemoglobin of 10.8 G. His last blood gas performed on 11/14/2018 revealed that he had a pCO2 elevated at 56.4 with a normal pO2 of 88.3 and normal pH of 7.37. His latest chemistry panel revealed that he was mildly hyponatremic with a sodium of 130, and had a chloride of 90. The BUN was elevated at 75, creatinine elevated at 7.4, glucose elevated at 156, Hemoglobin A1c elevated at 6.9%, Alkaline phosphatase elevated at 131, and ProBNP greater than 35,000. His last B12 level on 11/07/2018 was 723. His last folate on was 18.6. His last TSH on 12/06/2018 was 4.82, which is minimally elevated. 5. The CT scan of the brain performed on 11/10/2018 was benign for acute intracranial pathology. 6. The EEG done on 12/08/18 revealed left temporal dysfunction. 7. The patient's history and neurological examination are most consistent with mild multifactorial encephalopathy, which apparently waxes and wanes, but no definite focal neurological dysfunction. His encephalopathy is stable. 8. He tells me that he had a brain bleed many years ago. I did review his imaging done at [facility] a few years ago and he had closed head injuries with subarachnoid and subdural blood in the past. 9. His mood has improved. 10. There has never been a doubt regarding his ability to make decisions regarding his medical care. 11. He is eager to eat again and is worried about his hearing. Recommendations 1. Continue present management. 2. Continue to correct the patient's toxic metabolic imbalances. 3. Mobilize with PT/OT. 4. Consider getting swallowing evaluation so that he can be fed for enjoyment. 5. Consider ENT evaluation for hearing loss. 6. Observe. Pantera Cool M.D., M.S.P.H. Pantera Cool MD Jan 17, 2019 15:16
[2019-01-17 16:00] VITALS: BP 157/72
--- NOTE | 2019-01-17 18:03 | Infectious Diseases Prog Note ---
Assessment/Plan Problems: (1) Diarrhea Assessment & Plan: improved, with no infectious etiology so far , and negative stool for C diff toxin , and no pathogens on stool culture , use laxatives as needed , monitor clinically , encourage hydration (2) Foot ulcer Assessment & Plan: with MRSA grew out of it in the past, S/P vancomycin treatment with HD for two weeks, had vascular eval with revascularization to the right leg , S/P ulcer resection by claim examiner . deep ulcer culture grew MRSA and E.coli with diphtheroids , possible colonization , with no evidence of active infection as per discussion with podiatry , no need to be started on antibiotics for now , will continue to monitor clinically and make recommendations as necessary . bone scan ruled out osteomyelitis of the heel before, couldn't do an MRI since on the vent . continue local wound care as per claim examiner . (3) Thrush, oral Assessment & Plan: continue local nystatin as needed , S/P micafungin for three weeks empirically (4) HCV antibody positive Assessment & Plan: no evidence of active infection, with undetectable viral load , suspect due to previous infection , cleared, S/P liver transplant . (5) DM (diabetes mellitus) Assessment & Plan: recommend tight glycemic control to keep blood glucose between 100-140 (6) CHF (congestive heart failure) Assessment & Plan: on HD , renal is following, monitor daily weight , S/P multiple thoracentesis (7) Severe tongue swelling Assessment & Plan: improving , s/p tracheostomy to protect his airway since respiratory status worsened . now improving, pulmonary is following (8) Pleural effusion Assessment & Plan: recurrent on the right, with lung collapse , S/P thoracentesis X 3 now with removal of 2.3 liters of clear fluids on 12/31/18 . await fluids culture and gram stain, with PH and Glucose level . PREVIOUS culture were negative with negative cytology. pulmonary is following (9) Ascites Assessment & Plan: S/P paracentesis with removal of 4.1 liters of fluids, culture so far is negative Assessment/Plan will continue to monitor patient on daily basis and make recommendations as necessary since he is high risk for recurrent infection Subjective Constitutional: Reports: no symptoms HEENT: Reports: no symptoms Respiratory: Reports: no symptoms Breasts: Reports: no symptoms Cardiovascular: Reports: no symptoms Gastrointestinal/Abdominal: Reports: no symptoms Genitourinary: Reports: no symptoms Neurologic: Reports: no symptoms Psychiatric: Reports: no symptoms Skin: Reports: no symptoms Endocrine: Reports: no symptoms Hematologic: Reports: no symptoms Musculoskeletal: Reports: no symptoms Allergies: Coded Allergies: CEPHALEXIN (Unverified Allergy, Unknown, 02/24/14) SULFAMETHOXAZOLE (Unverified Allergy, Unknown, 02/24/14) TRIMETHOPRIM (Unverified Allergy, Unknown, 02/24/14) Subjective he was comfortable, lying in bed, awake and responsive, no fever or chills, no significant secretions from the trach , no SOB . has left heel with wound VAC in place, but no draining coming out . no diarrhea . Objective Vital Signs Last 24 Hour Vital Signs Date Time Temp Pulse Resp B/P (MAP) Pulse Ox O2 Delivery O2 Flow Rate FiO2 01/17/19 17:09 80 25 40 01/17/19 16:00 40 01/17/19 16:00 97.3 75 24 157/72 (100) 100 01/17/19 16:00 75 01/17/19 15:00 Mechanical Ventilator 01/17/19 15:00 79 24 40 01/17/19 13:30 40 01/17/19 13:23 88 32 40 01/17/19 12:00 Mechanical Ventilator 01/17/19 12:00 97.7 83 34 176/96 (122) 100 01/17/19 12:00 87 01/17/19 12:00 40 01/17/19 10:30 40 01/17/19 10:30 78 31 40 01/17/19 10:30 100 01/17/19 08:55 88 24 40 01/17/19 08:00 40 01/17/19 08:00 Mechanical Ventilator 01/17/19 08:00 76 01/17/19 08:00 97.7 75 24 169/92 (117) 100 01/17/19 07:00 92 26 40 01/17/19 04:56 91 26 40 01/17/19 04:00 Mechanical Ventilator 01/17/19 04:00 76 01/17/19 04:00 97.8 80 21 113/58 (76) 100 01/17/19 04:00 40 01/17/19 03:23 90 25 40 01/17/19 01:37 81 25 40 01/17/19 00:00 98.0 68 24 113/58 (76) 99 01/17/19 00:00 Mechanical Ventilator 01/16/19 23:37 76 01/16/19 23:13 89 22 40 01/16/19 20:49 83 24 40 01/16/19 20:00 Mechanical Ventilator 01/16/19 20:00 40 01/16/19 20:00 97.7 82 25 140/65 (90) 100 01/16/19 19:23 80 01/16/19 18:52 81 21 40 Height (Feet): 5 Height (Inches): 4.00 Weight (Pounds): 215 General Appearance: WD/WN, no acute distress HEENT: normocephalic, atraumatic, anicteric, mucous membranes moist, PERRL Respiratory/Chest: chest wall non-tender, no respiratory distress, no accessory muscle use, decreased breath sounds, crackles/rales Cardiovascular: normal peripheral pulses, normal rate, regular rhythm, no gallop/murmur, no JVD Abdomen: normal bowel sounds, soft, non tender, no organomegaly, non distended , no mass, no scars Genitourinary: normal external genitalia Extremities: no cyanosis, no clubbing Skin: no rash, no lesions, no ulcers 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: labor mediator 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 normal, alert, responsive Lymphatic: no neck adenopathy, no groin adenopathy Musculoskeletal: normal muscle bulk, no effusion Current Medications Medications (Trade) Dose Ordered Sig/Aleks Route PRN Reason Start Time Stop Time Status Last Admin Dose Admin Acetaminophen (Tylenol) 650 mg Q6H PRN GT Mild Pain/Temp > 100.5 12/21/18 16:00 01/20/19 15:59 01/16/19 00:57 Apixaban (Eliquis) 2.5 mg BID GT 01/01/19 21:00 01/31/19 20:59 01/17/19 09:22 Clotrimazole (Lotrimin) 1 applic DAILY TOPIC 01/08/19 18:00 02/07/19 17:59 01/17/19 09:21 Collagenase (Santyl) 1 applic DAILY TOPIC 12/29/18 09:00 01/28/19 08:59 01/17/19 09:17 Dextrose (Dextrose 50%) 25 ml Q30M PRN IV Hypoglycemia 12/31/18 23:00 01/30/19 22:59 Dextrose (Dextrose 50%) 50 ml Q30M PRN IV Hypoglycemia 12/31/18 23:00 01/30/19 22:59 Epoetin Vini (Epoetin Vini(ESRD on dialysis)) 10,000 unit FRI-FRI-FRI SUBQ 01/06/19 21:00 02/05/19 20:59 01/15/19 21:52 Escitalopram Oxalate (Lexapro) 20 mg DAILY GT 01/05/19 09:00 02/04/19 08:59 01/17/19 09:17 Hydralazine HCl (Apresoline) 25 mg Q4H PRN GT bp over 160 syst 01/06/19 15:00 02/05/19 14:59 Insulin Aspart (NovoLOG) EVERY 6 HOURS SUBQ 01/01/19 00:00 01/31/19 00:00 01/17/19 12:08 Lansoprazole (Prevacid) 30 mg DAILY GT 01/16/19 09:00 02/15/19 08:59 01/17/19 09:17 Loperamide HCl (Imodium) 2 mg Q6H PRN GT Diarrhea 01/07/19 11:00 02/06/19 10:59 01/16/19 04:24 Mirtazapine (Remeron) 15 mg BEDTIME GT 12/21/18 21:00 01/20/19 20:59 01/16/19 20:09 Tacrolimus (Prograf) 2 mg MoWeFr@0000,1200 ORAL 12/28/18 00:00 01/27/19 00:00 01/15/19 12:05 Tacrolimus (Prograf) 2 mg SuTuThSa@0900,2100 ORAL 12/26/18 21:00 01/25/19 20:59 01/17/19 09:21 Francois Landis M.D. Jan 17, 2019 18:03
[2019-01-17 20:00] VITALS: BP 139/91
[2019-01-18] VITALS: BP 111/59
[2019-01-18 04:52] LABS: BASOPHILS % (AUTO) 0.8 % (0.0-2.0); EOSINOPHILS % (AUTO) 0.1 % (0.0-3.0); HEMATOCRIT 28.2 % (42.0-52.0); HEMOGLOBIN 8.9 G/DL (14.2-18.0); LYMPHOCYTES % (AUTO) 15.3 % (20.0-45.0); MEAN CORPUSCULAR VOLUME 80 FL (80-99); MONOCYTES % (AUTO) 9.2 % (1.0-10.0); NEUTROPHILS % (AUTO) 74.7 % (45.0-75.0); PLATELET COUNT 209 K/UL (150-450); RED BLOOD COUNT 3.54 M/UL (4.70-6.10); RED CELL DISTRIBUTION WIDTH 16.3 % (11.6-14.8); WHITE BLOOD COUNT 6.3 K/UL (4.8-10.8)
[2019-01-18] MEDS: NovoLOG Insulin Flexpen SUBQ SCH ×3 (05:23→18:39)
[2019-01-18 05:37] LABS: ALANINE AMINOTRANSFERASE 12 U/L (12-78); ALBUMIN/GLOBULIN RATIO 0.4 (1.0-2.7); ALKALINE PHOSPHATASE 120 U/L (46-116); ANION GAP 7 mmol/L (5-15); ASPARTATE AMINO TRANSFERASE 13 U/L (15-37); BILIRUBIN,TOTAL 0.4 MG/DL (0.2-1.0); BLOOD UREA NITROGEN 68 mg/dL (7-18); CALCIUM 9.1 MG/DL (8.5-10.1); CARBON DIOXIDE 31 MMOL/L (21-32); CHLORIDE 92 MMOL/L (98-107); CREATININE 5.9 MG/DL (0.55-1.30); PHOSPHORUS 3.9 MG/DL (2.5-4.9); POTASSIUM 3.8 MMOL/L (3.5-5.1); SODIUM 130 MMOL/L (136-145)
[2019-01-18] MEDS: Acetaminophen 650mg/20.3ml GT PRN (07:58)
[2019-01-18] MEDS: Eliquis 2.5mg tablet GT SCH ×2 (07:59→18:29)
[2019-01-18 08:00] VITALS: BP 153/75
--- NOTE | 2019-01-18 09:42 | Nephrology Progress Note ---
Assessment/Plan Problem List: (1) ESRD (end stage renal disease) on dialysis (2) Foot ulcer (3) CHF (congestive heart failure) Assessment: Ej Fx 20 % (4) Pacemaker (5) Acute respiratory failure Assessment: with Co2 retention (6) G-tube site cellulitis Assessment ESRD with high K and SOB on admit Foot ulcer, likely infected High Troponin likely NSTMI Pacer , Pleural effusion s/p CABGS s/p Liver transplant Plan dialysis next 01/15 labs before HD noted BP low- improved on midodrine per consultants, GI GT site infection, topical antibiotic Neuro note appreciated placement in process vascular esteban regarding heel ulcer per Dr Mcgill pain med change to dilaudid GT Now has tracheostomy and PEG Adjust BP meds add nitro paste TID Antibiotics by ID per cardio and ID Podiatry and Vascular surgical fu ? DC planning? Subjective ROS Limited/Unobtainable: No Objective Objective Last 24 Hour Vital Signs Date Time Temp Pulse Resp B/P (MAP) Pulse Ox O2 Delivery O2 Flow Rate FiO2 01/18/19 08:48 81 22 40 01/18/19 08:00 40 01/18/19 08:00 Mechanical Ventilator 01/18/19 08:00 97.2 81 27 153/75 (101) 100 01/18/19 08:00 83 01/18/19 07:42 77 20 40 01/18/19 04:45 82 23 40 01/18/19 04:00 Mechanical Ventilator 01/18/19 04:00 79 01/18/19 04:00 40 01/18/19 03:21 80 22 40 01/18/19 01:09 82 21 40 01/18/19 00:00 Mechanical Ventilator 01/18/19 00:00 98.0 79 20 111/59 (76) 100 01/18/19 00:00 77 01/18/19 00:00 40 01/17/19 23:05 83 20 40 01/17/19 21:15 88 24 40 01/17/19 20:00 Mechanical Ventilator 01/17/19 20:00 78 01/17/19 20:00 97.9 76 21 139/91 (107) 100 01/17/19 18:43 82 26 40 01/17/19 17:09 80 25 40 01/17/19 16:00 40 01/17/19 16:00 97.3 75 24 157/72 (100) 100 01/17/19 16:00 75 01/17/19 15:00 Mechanical Ventilator 01/17/19 15:00 79 24 40 01/17/19 13:30 40 01/17/19 13:23 88 32 40 01/17/19 12:00 Mechanical Ventilator 01/17/19 12:00 97.7 83 34 176/96 (122) 100 01/17/19 12:00 87 01/17/19 12:00 40 01/17/19 10:30 40 01/17/19 10:30 78 31 40 01/17/19 10:30 100 Intake and Output 01/17/19 01/18/19 19:00 07:00 Intake Total 640 ml 690 ml Balance 640 ml 690 ml Free Water 100 ml 150 ml Tube Feeding 540 ml 540 ml # Bowel Movements 1 Laboratory Tests 01/18/19 03:20: White Blood Count 6.3, Red Blood Count 3.54L, Hemoglobin 8.9L, Hematocrit 28.2L , Mean Corpuscular Volume 80, Mean Corpuscular Hemoglobin 25.1L, Mean Corpuscular Hemoglobin Concent 31.5L, Red Cell Distribution Width 16.3H, Platelet Count 209, Mean Platelet Volume 6.4L, Neutrophils (%) (Auto) 74.7, Lymphocytes (%) (Auto) 15.3L, Monocytes (%) (Auto) 9.2, Eosinophils (%) (Auto) 0.1, Basophils (%) (Auto) 0.8, Sodium Level 130L, Potassium Level 3.8, Chloride Level 92L, Carbon Dioxide Level 31, Anion Gap 7, Blood Urea Nitrogen 68H, Creatinine 5.9H, Estimat Glomerular Filtration Rate 9.6, Glucose Level 154H, Uric Acid 4.9, Calcium Level 9.1, Phosphorus Level 3.9, Magnesium Level 2.1, Total Bilirubin 0.4, Aspartate Amino Transf (AST/SGOT) 13L, Alanine Aminotransferase (ALT/SGPT) 12, Alkaline Phosphatase 120H, Total Protein 6.5, Albumin 2.0L, Globulin 4.5, Albumin/Globulin Ratio 0.4L Height (Feet): 5 Height (Inches): 4.00 Weight (Pounds): 215 General Appearance: no apparent distress EENT: other - trach Cardiovascular: normal rate Respiratory/Chest: decreased breath sounds Abdomen: other - PEG Objective no other change Nakul Stevens MD Jan 18, 2019 09:42
--- NOTE | 2019-01-18 09:54 | GI Progress Note ---
Assessment/Plan Problems: (1) Foot ulcer ICD Codes: L97.509 - Non-pressure chronic ulcer of other part of unspecified foot with unspecified severity SNOMED: 82753100 Qualifiers: Qualified Codes: L97.511 - Non-pressure chronic ulcer of other part of right foot limited to breakdown of skin (2) DM (diabetes mellitus) ICD Codes: E11.9 - Type 2 diabetes mellitus without complications SNOMED: 47775636 (3) Transplant ICD Codes: Z94.9 - Transplanted organ and tissue status, unspecified SNOMED: 516865107 Status: unchanged Status Narrative Discussed with Dr. Escalera. Assessment/Plan History of liver transplant, currently on Prograf History of cholecystectomy status post tracheostomy and PEG Infected G-tube site, fu ID recs C. difficile negative x 2 would care cx >> GRAM NEGATIVE BACILLUS CT AP reviewed, Moderate to large right pleural effusion. Moderate Ascites. s/p Paracentesis yielding 4.1 yield, r/o SBP >> negative for malignant cells Status post right thoracentesis yielding 2.1 L >> negative for malignant cells Hep C antibody present, pending PCR Continue G-tube feedings GT site care BID/prn topical abx around GT site per ID HD per nephro cont tacrolimus prn transfusions ppi zofran prn Imodium prn, Lomotil for persistent diarrhea follow labs supportive care The patient was seen and examined at bedside and all new and available data was reviewed in the patients chart. I agree with the above findings, impression and plan. (Patient seen earlier today. Signature stamp does not reflect patient encounter time.). - Jorge Escalera MD Subjective Subjective Limited abdominal distention and discomfort improved diarrhea Objective Last 24 Hour Vital Signs Date Time Temp Pulse Resp B/P (MAP) Pulse Ox O2 Delivery O2 Flow Rate FiO2 01/18/19 08:48 81 22 40 01/18/19 08:00 40 01/18/19 08:00 Mechanical Ventilator 01/18/19 08:00 97.2 81 27 153/75 (101) 100 01/18/19 08:00 83 01/18/19 07:42 77 20 40 01/18/19 04:45 82 23 40 01/18/19 04:00 Mechanical Ventilator 01/18/19 04:00 79 01/18/19 04:00 40 01/18/19 03:21 80 22 40 6/3/19 01:09 82 21 40 01/18/19 00:00 Mechanical Ventilator 01/18/19 00:00 98.0 79 20 111/59 (76) 100 01/18/19 00:00 77 01/18/19 00:00 40 01/17/19 23:05 83 20 40 01/17/19 21:15 88 24 40 01/17/19 20:00 Mechanical Ventilator 01/17/19 20:00 78 01/17/19 20:00 97.9 76 21 139/91 (107) 100 01/17/19 18:43 82 26 40 01/17/19 17:09 80 25 40 01/17/19 16:00 40 01/17/19 16:00 97.3 75 24 157/72 (100) 100 01/17/19 16:00 75 01/17/19 15:00 Mechanical Ventilator 01/17/19 15:00 79 24 40 01/17/19 13:30 40 01/17/19 13:23 88 32 40 01/17/19 12:00 Mechanical Ventilator 01/17/19 12:00 97.7 83 34 176/96 (122) 100 01/17/19 12:00 87 01/17/19 12:00 40 01/17/19 10:30 40 01/17/19 10:30 78 31 40 01/17/19 10:30 100 Intake and Output 01/17/19 01/18/19 18:59 06:59 Intake Total 590 ml 690 ml Balance 590 ml 690 ml Free Water 50 ml 150 ml Tube Feeding 540 ml 540 ml # Bowel Movements 1 Laboratory Tests Test 01/18/19 03:20 White Blood Count 6.3 K/UL (4.8-10.8) Red Blood Count 3.54 M/UL (4.70-6.10) L Hemoglobin 8.9 G/DL (14.2-18.0) L Hematocrit 28.2 % (42.0-52.0) L Mean Corpuscular Volume 80 FL (80-99) Mean Corpuscular Hemoglobin 25.1 PG (27.0-31.0) L Mean Corpuscular Hemoglobin Concent 31.5 G/DL (32.0-36.0) L Red Cell Distribution Width 16.3 % (11.6-14.8) H Platelet Count 209 K/UL (150-450) Mean Platelet Volume 6.4 FL (6.5-10.1) L Neutrophils (%) (Auto) 74.7 % (45.0-75.0) Lymphocytes (%) (Auto) 15.3 % (20.0-45.0) L Monocytes (%) (Auto) 9.2 % (1.0-10.0) Eosinophils (%) (Auto) 0.1 % (0.0-3.0) Basophils (%) (Auto) 0.8 % (0.0-2.0) Sodium Level 130 MMOL/L (136-145) L Potassium Level 3.8 MMOL/L (3.5-5.1) Chloride Level 92 MMOL/L (98-107) L Carbon Dioxide Level 31 MMOL/L (21-32) Anion Gap 7 mmol/L (5-15) Blood Urea Nitrogen 68 mg/dL (7-18) H Creatinine 5.9 MG/DL (0.55-1.30) H Estimat Glomerular Filtration Rate 9.6 mL/min (>60) Glucose Level 154 MG/DL (74-106) H Uric Acid 4.9 MG/DL (2.6-7.2) Calcium Level 9.1 MG/DL (8.5-10.1) Phosphorus Level 3.9 MG/DL (2.5-4.9) Magnesium Level 2.1 MG/DL (1.8-2.4) Total Bilirubin 0.4 MG/DL (0.2-1.0) Aspartate Amino Transf (AST/SGOT) 13 U/L (15-37) L Alanine Aminotransferase (ALT/SGPT) 12 U/L (12-78) Alkaline Phosphatase 120 U/L (46-116) H Total Protein 6.5 G/DL (6.4-8.2) Albumin 2.0 G/DL (3.4-5.0) L Globulin 4.5 g/dL Albumin/Globulin Ratio 0.4 (1.0-2.7) L Height (Feet): 5 Height (Inches): 4.00 Weight (Pounds): 215 General Appearance: WD/WN, no apparent distress, alert Cardiovascular: normal rate Respiratory/Chest: normal breath sounds, no respiratory distress Abdominal Exam: normal bowel sounds, non tender, soft Extremities: non-tender Objective Scrotal swelling Right upper extremity swelling Kelvin Briggs NP Jan 18, 2019 09:54
--- NOTE | 2019-01-18 11:23 | Neurology Progress Note ---
Interim History Interim History Interim History Mr. Restrepo feels unwell. He has a bifrontal headache that did not respond to Tylenol. He is being weaned off the ventilator and is comfortable. He is more alert. His mood is fair. He is in fair spirits. The right heel is less painful - and is healing well. The right upper extremity is less swollen and less painful. He has been able to sleep better. He is still artificially ventilated. He feels that his strength is stable. The mind is clearer. He is eager to eat. He denies any new neurological symptoms. He is still worried about his hearing. Review of Systems Neuro Review of Systems Benign. Objective Physical Exam Last Vital Signs Date Time Temp Pulse Resp B/P (MAP) Pulse Ox O2 Delivery O2 Flow Rate FiO2 01/18/19 10:30 79 21 40 01/18/19 08:00 Mechanical Ventilator 01/18/19 08:00 97.2 153/75 (101) 100 Laboratory Tests Test 01/18/19 03:20 White Blood Count 6.3 K/UL (4.8-10.8) Red Blood Count 3.54 M/UL (4.70-6.10) L Hemoglobin 8.9 G/DL (14.2-18.0) L Hematocrit 28.2 % (42.0-52.0) L Mean Corpuscular Volume 80 FL (80-99) Mean Corpuscular Hemoglobin 25.1 PG (27.0-31.0) L Mean Corpuscular Hemoglobin Concent 31.5 G/DL (32.0-36.0) L Red Cell Distribution Width 16.3 % (11.6-14.8) H Platelet Count 209 K/UL (150-450) Mean Platelet Volume 6.4 FL (6.5-10.1) L Neutrophils (%) (Auto) 74.7 % (45.0-75.0) Lymphocytes (%) (Auto) 15.3 % (20.0-45.0) L Monocytes (%) (Auto) 9.2 % (1.0-10.0) Eosinophils (%) (Auto) 0.1 % (0.0-3.0) Basophils (%) (Auto) 0.8 % (0.0-2.0) Sodium Level 130 MMOL/L (136-145) L Potassium Level 3.8 MMOL/L (3.5-5.1) Chloride Level 92 MMOL/L (98-107) L Carbon Dioxide Level 31 MMOL/L (21-32) Anion Gap 7 mmol/L (5-15) Blood Urea Nitrogen 68 mg/dL (7-18) H Creatinine 5.9 MG/DL (0.55-1.30) H Estimat Glomerular Filtration Rate 9.6 mL/min (>60) Glucose Level 154 MG/DL (74-106) H Uric Acid 4.9 MG/DL (2.6-7.2) Calcium Level 9.1 MG/DL (8.5-10.1) Phosphorus Level 3.9 MG/DL (2.5-4.9) Magnesium Level 2.1 MG/DL (1.8-2.4) Total Bilirubin 0.4 MG/DL (0.2-1.0) Aspartate Amino Transf (AST/SGOT) 13 U/L (15-37) L Alanine Aminotransferase (ALT/SGPT) 12 U/L (12-78) Alkaline Phosphatase 120 U/L (46-116) H Total Protein 6.5 G/DL (6.4-8.2) Albumin 2.0 G/DL (3.4-5.0) L Globulin 4.5 g/dL Albumin/Globulin Ratio 0.4 (1.0-2.7) L Neurologic Exam Objective PHYSICAL EXAMINATION: GENERAL: He is a well-developed and well-nourished, pleasant gentleman, lying in bed, connected to a ventilator via a tracheostomy. HEAD: Normocephalic and atraumatic. EENT: Examination benign. NECK: No neck rigidity was observed. He did have a tracheostomy. NEUROLOGICAL EXAMINATION: MENTAL STATUS EXAMINATION: He was awake and alert. He was oriented to person, place and time. He was able to recall 3/3 words immediately and was able to remember them in 1 and 3 minutes. He was able to remember presidents [employer] through Mak Keny. His mathematical skills were fair. His visuospatial function was preserved. SPEECH: Could not be tested, but he was able to mouth words relatively well. LANGUAGE: He was able to comprehend and express himself relatively well. CRANIAL NERVES EXAMINATION: II: The visual mckeon were intact to confrontation testing. III, IV & : The external ocular movements were full and the pupils 3 mm in diameter, equal, round, regular, and reactive sluggishly to light. V: He had normal facial sensations, and the temporales, masseters, and pterygoids functioned normally. VII: He had normal facial expressions and no facial asymmetry. VIII: Hearing was decreased bilaterally with worse hearing on the left side compared to the right. IX: The palate moved symmetrically on phonation. X: Could not be tested. XI: The sternocleidomastoids and trapezii functioned normally. XII: The tongue was in the midline without any fasciculations or atrophy. MOTOR SYSTEM: The tone was normal in all four extremities. Examination of muscle mass revealed generalized muscle wasting. Examination of power revealed G 5/5 power except for G 4+/5 power in the iliopsoas muscles bilaterally, and G 4/5 in the right ankle and toes. Power in the right upper extremity was limited by pain. Power in the right foot was also limited by pain. SENSORY EXAMINATION: He had intact sensations to light touch. Other sensory modalities could not be tested adequately. REFLEXES: 1+ and bilaterally symmetrical at the biceps, triceps, brachioradialis , and knees, 0 at both ankles. The plantar responses were flexor bilaterally. COORDINATION: He performed well on xyctym-no-oech testing. STANCE & GAIT: Were deferred. Impression/Recommendations Diagnostic Impression 1. Mr. Gregg Restrepo is a 69-year-old, right-handed, gentleman with past history of multiple medical problems including hypertension, diabetes mellitus, end-stage renal disease for which he is hemodialysis dependent, prior episodes of sepsis, and prior episodes of encephalopathy, who was admitted to [facility] on October 31, 2018. Following that, he has had a stormy hospital course including pneumonia and sepsis, right foot infection, respiratory failure for which he has needed tracheostomy and in addition he has exhibited an alteration in his mental state with some waxing and waning of his mental state. 2. He feels unwell. He has a bifrontal headache that did not respond to Tylenol. He is being weaned off the ventilator and is comfortable. He is more alert. His mood is fair. He is in fair spirits. The right heel is less painful - and is healing well. The right upper extremity is less swollen and less painful. He has been able to sleep better. He is still artificially ventilated. He feels that his strength is stable. The mind is clearer. He is eager to eat. He denies any new neurological symptoms. He is still worried about his hearing. 3. On neurological examination, at this time, he is fully oriented, his recent memory is normal. He has minimally impaired higher cognitive function. He is able to comprehend and express himself well. He does have mild G 4+/5 weakness in the iliopsoas muscles bilaterally. Power in the right upper extremity was limited by pain. Power in the right foot was also limited by pain. He had globally diminished deep tendon reflexes with loss of ankle jerks, but no definite focal or lateralizing neurological findings. 4. His latest laboratory data on my initial evaluation revealed that he was anemic with a hemoglobin of 10.8 G. His last blood gas performed on 11/14/2018 revealed that he had a pCO2 elevated at 56.4 with a normal pO2 of 88.3 and normal pH of 7.37. His latest chemistry panel revealed that he was mildly hyponatremic with a sodium of 130, and had a chloride of 90. The BUN was elevated at 75, creatinine elevated at 7.4, glucose elevated at 156, Hemoglobin A1c elevated at 6.9%, Alkaline phosphatase elevated at 131, and ProBNP greater than 35,000. His last B12 level on 11/07/2018 was 723. His last folate on was 18.6. His last TSH on 12/06/2018 was 4.82, which is minimally elevated. 5. The CT scan of the brain performed on 11/10/2018 was benign for acute intracranial pathology. 6. The EEG done on 12/08/18 revealed left temporal dysfunction. 7. The patient's history and neurological examination are most consistent with mild multifactorial encephalopathy, which apparently waxes and wanes, but no definite focal neurological dysfunction. His encephalopathy is stable. 8. He tells me that he had a brain bleed many years ago. I did review his imaging done at [facility] a few years ago and he had closed head injuries with subarachnoid and subdural blood in the past. 9. His mood has improved. 10. There has never been a doubt regarding his ability to make decisions regarding his medical care. 11. He is eager to eat again and is worried about his hearing. 12. He has a bifrontal muscle contraction headache. Recommendations 1. Continue present management. 2. Continue to correct the patient's toxic metabolic imbalances. 3. Mobilize with PT/OT. 4. Consider getting swallowing evaluation so that he can be fed for enjoyment. 5. Consider ENT evaluation for hearing loss. 6. Ibuprofen 400 mg q 8 hours PRN DIAZ. 7. Observe. Pantera Cool M.D., M.S.P.H. Pantera Cool MD Jan 18, 2019 11:23
[2019-01-18 12:00] VITALS: BP 143/99
--- NOTE | 2019-01-18 12:25 | Cardiac Electrophysiology PN ---
Assessment/Plan Assessment/Plan 1. Troponin leak due to renal failure. No CP or SOB. Nl EF 2. Hx of CABG. Resume Coreg, aspirin and Lipitor 3. NSVT in setting of old DE and CABG. EF 55%. Continue Coreg. No Syncope 4. CHF and right pleural effusion. On hemodialysis. S/P Thoracentesis 5. S/P Right sided [employer] DDD pacemaker with Nl Fx. 6. End-stage renal disease, on hemodialysis per Dr. Stevens 7. Multilevel AOD LE's with non-healing Right foot ulcer. Had abdominal angiogram per Dr Salmeron Antibiotic per Dr. Landis. FU by Dr. Huizar S/P peripheral intervention by Dr. Salmeron 12/22/18 Right foot on Wound-Vac 8. History of liver transplant on Prograf 9. Respiratory failure, S/P tracheostomy. 10. Pleural effusion. s/p 2300 cc thoracentesis 01/01/19 11. Dysphagia, S/P PEG DW RN Subjective Subjective No events. Alert in NAD.No CP or SOB Objective Last 24 Hour Vital Signs Date Time Temp Pulse Resp B/P (MAP) Pulse Ox O2 Delivery O2 Flow Rate FiO2 01/18/19 10:30 79 21 40 01/18/19 08:48 81 22 40 01/18/19 08:00 40 01/18/19 08:00 Mechanical Ventilator 01/18/19 08:00 97.2 81 27 153/75 (101) 100 01/18/19 08:00 83 01/18/19 07:42 77 20 40 01/18/19 04:45 82 23 40 01/18/19 04:00 Mechanical Ventilator 01/18/19 04:00 79 01/18/19 04:00 40 01/18/19 03:21 80 22 40 01/18/19 01:09 82 21 40 01/18/19 00:00 Mechanical Ventilator 01/18/19 00:00 98.0 79 20 111/59 (76) 100 01/18/19 00:00 77 01/18/19 00:00 40 01/17/19 23:05 83 20 40 01/17/19 21:15 88 24 40 01/17/19 20:00 Mechanical Ventilator 01/17/19 20:00 78 01/17/19 20:00 97.9 76 21 139/91 (107) 100 01/17/19 18:43 82 26 40 01/17/19 17:09 80 25 40 01/17/19 16:00 40 01/17/19 16:00 97.3 75 24 157/72 (100) 100 01/17/19 16:00 75 01/17/19 15:00 Mechanical Ventilator 01/17/19 15:00 79 24 40 01/17/19 13:30 40 01/17/19 13:23 88 32 40 Intake and Output 01/17/19 01/18/19 18:59 06:59 Intake Total 590 ml 690 ml Balance 590 ml 690 ml Free Water 50 ml 150 ml Tube Feeding 540 ml 540 ml # Bowel Movements 1 Laboratory Tests Test 01/18/19 03:20 White Blood Count 6.3 K/UL (4.8-10.8) Red Blood Count 3.54 M/UL (4.70-6.10) L Hemoglobin 8.9 G/DL (14.2-18.0) L Hematocrit 28.2 % (42.0-52.0) L Mean Corpuscular Volume 80 FL (80-99) Mean Corpuscular Hemoglobin 25.1 PG (27.0-31.0) L Mean Corpuscular Hemoglobin Concent 31.5 G/DL (32.0-36.0) L Red Cell Distribution Width 16.3 % (11.6-14.8) H Platelet Count 209 K/UL (150-450) Mean Platelet Volume 6.4 FL (6.5-10.1) L Neutrophils (%) (Auto) 74.7 % (45.0-75.0) Lymphocytes (%) (Auto) 15.3 % (20.0-45.0) L Monocytes (%) (Auto) 9.2 % (1.0-10.0) Eosinophils (%) (Auto) 0.1 % (0.0-3.0) Basophils (%) (Auto) 0.8 % (0.0-2.0) Sodium Level 130 MMOL/L (136-145) L Potassium Level 3.8 MMOL/L (3.5-5.1) Chloride Level 92 MMOL/L (98-107) L Carbon Dioxide Level 31 MMOL/L (21-32) Anion Gap 7 mmol/L (5-15) Blood Urea Nitrogen 68 mg/dL (7-18) H Creatinine 5.9 MG/DL (0.55-1.30) H Estimat Glomerular Filtration Rate 9.6 mL/min (>60) Glucose Level 154 MG/DL (74-106) H Uric Acid 4.9 MG/DL (2.6-7.2) Calcium Level 9.1 MG/DL (8.5-10.1) Phosphorus Level 3.9 MG/DL (2.5-4.9) Magnesium Level 2.1 MG/DL (1.8-2.4) Total Bilirubin 0.4 MG/DL (0.2-1.0) Aspartate Amino Transf (AST/SGOT) 13 U/L (15-37) L Alanine Aminotransferase (ALT/SGPT) 12 U/L (12-78) Alkaline Phosphatase 120 U/L (46-116) H Total Protein 6.5 G/DL (6.4-8.2) Albumin 2.0 G/DL (3.4-5.0) L Globulin 4.5 g/dL Albumin/Globulin Ratio 0.4 (1.0-2.7) L Objective HEAD AND NECK: No JVD. Tracheostomy intact LUNGS: Clear CARDIOVASCULAR: Irregular S1 and S2 with no gallop. Sternotomy is intact Pacemaker in the right subclavian ABDOMEN: Soft. PEG in place EXTREMITIES: Right heel connected to WoundVac Shivam Sharpe MD Jan 18, 2019 12:25
--- NOTE | 2019-01-18 12:43 | Podiatric Progress Note ---
Assessment/Plan Patient Gregg Restrepo is a 69 year old male who was admitted on Oct 31, 2018 at 19:13 with Assessment/Plan A: R heel ulceration, necrotic, painful Hep C , s/p Liver transplant CAD, s/p CABG Cellulitis of ABD DM Elevated Troponin. P: - Pt seen and evaluated. - R heel ulceration evaluated, stable. - Cont wound vac therapy, apply at 125mmHg, Change Q72 hours. - NWB to RLE. - Cont care per primary team / specialists. - No acute surgical intervention required. - Per Wound Care nurse, interval healing was noted on most recent wound vac change. - Podiatry will con to monitor. Subjective Reason for consult R heel ulcer. Allergies: Coded Allergies: CEPHALEXIN (Unverified Allergy, Unknown, 02/24/14) SULFAMETHOXAZOLE (Unverified Allergy, Unknown, 02/24/14) TRIMETHOPRIM (Unverified Allergy, Unknown, 02/24/14) Subjective Pt seen bedside for R heel ulceration. Pt has wound Vac intact to RLE. Objective Exam Last 24 Hour Vital Signs Date Time Temp Pulse Resp B/P (MAP) Pulse Ox O2 Delivery O2 Flow Rate FiO2 01/18/19 10:30 79 21 40 01/18/19 08:48 81 22 40 01/18/19 08:00 40 01/18/19 08:00 Mechanical Ventilator 01/18/19 08:00 97.2 81 27 153/75 (101) 100 01/18/19 08:00 83 01/18/19 07:42 77 20 40 01/18/19 04:45 82 23 40 01/18/19 04:00 Mechanical Ventilator 01/18/19 04:00 79 01/18/19 04:00 40 01/18/19 03:21 80 22 40 01/18/19 01:09 82 21 40 01/18/19 00:00 Mechanical Ventilator 01/18/19 00:00 98.0 79 20 111/59 (76) 100 01/18/19 00:00 77 01/18/19 00:00 40 01/17/19 23:05 83 20 40 01/17/19 21:15 88 24 40 01/17/19 20:00 Mechanical Ventilator 01/17/19 20:00 78 01/17/19 20:00 97.9 76 21 139/91 (107) 100 01/17/19 18:43 82 26 40 01/17/19 17:09 80 25 40 01/17/19 16:00 40 01/17/19 16:00 97.3 75 24 157/72 (100) 100 01/17/19 16:00 75 01/17/19 15:00 Mechanical Ventilator 01/17/19 15:00 79 24 40 01/17/19 13:30 40 01/17/19 13:23 88 32 40 Laboratory Tests Test 01/18/19 03:20 White Blood Count 6.3 K/UL (4.8-10.8) Red Blood Count 3.54 M/UL (4.70-6.10) L Hemoglobin 8.9 G/DL (14.2-18.0) L Hematocrit 28.2 % (42.0-52.0) L Mean Corpuscular Volume 80 FL (80-99) Mean Corpuscular Hemoglobin 25.1 PG (27.0-31.0) L Mean Corpuscular Hemoglobin Concent 31.5 G/DL (32.0-36.0) L Red Cell Distribution Width 16.3 % (11.6-14.8) H Platelet Count 209 K/UL (150-450) Mean Platelet Volume 6.4 FL (6.5-10.1) L Neutrophils (%) (Auto) 74.7 % (45.0-75.0) Lymphocytes (%) (Auto) 15.3 % (20.0-45.0) L Monocytes (%) (Auto) 9.2 % (1.0-10.0) Eosinophils (%) (Auto) 0.1 % (0.0-3.0) Basophils (%) (Auto) 0.8 % (0.0-2.0) Sodium Level 130 MMOL/L (136-145) L Potassium Level 3.8 MMOL/L (3.5-5.1) Chloride Level 92 MMOL/L (98-107) L Carbon Dioxide Level 31 MMOL/L (21-32) Anion Gap 7 mmol/L (5-15) Blood Urea Nitrogen 68 mg/dL (7-18) H Creatinine 5.9 MG/DL (0.55-1.30) H Estimat Glomerular Filtration Rate 9.6 mL/min (>60) Glucose Level 154 MG/DL (74-106) H Uric Acid 4.9 MG/DL (2.6-7.2) Calcium Level 9.1 MG/DL (8.5-10.1) Phosphorus Level 3.9 MG/DL (2.5-4.9) Magnesium Level 2.1 MG/DL (1.8-2.4) Total Bilirubin 0.4 MG/DL (0.2-1.0) Aspartate Amino Transf (AST/SGOT) 13 U/L (15-37) L Alanine Aminotransferase (ALT/SGPT) 12 U/L (12-78) Alkaline Phosphatase 120 U/L (46-116) H Total Protein 6.5 G/DL (6.4-8.2) Albumin 2.0 G/DL (3.4-5.0) L Globulin 4.5 g/dL Albumin/Globulin Ratio 0.4 (1.0-2.7) L Microbiology Date/Time Source Procedure Growth Status 11/14/18 15:30 Blood Blood Culture - Final NO GROWTH AFTER 5 DAYS Complete 01/01/19 15:30 Pleural Fluid Gram Stain - Final Complete 01/01/19 15:30 Pleural Fluid Body Fluid Culture - Final NO GROWTH Complete 10/31/18 20:39 Wound Gram Stain - Final Complete 10/31/18 20:39 Wound Culture - Final Staphylococcus Aureus - Mrsa Complete 10/31/18 21:00 Nasal Nares MRSA Culture - Final Staphylococcus Aureus - Mrsa Complete 01/07/19 16:15 Stool Stool Culture - Final NO SALMONELLA,SHIGELLA,OR CAMPYLOBACT... Complete 12/24/18 12:00 Ankle Right Gram Stain - Final Complete 12/24/18 12:00 Wound Culture - Final Staphylococcus Aureus - Mrsa Diphtheroids Escherichia Coli Complete Dermatological Dermatological Narrative Focused RLE: Right foot: DSD noted to R heel with wound vac connected. No leakage noted to vac. Vac setting continuous at 125mHg. No strike through noted. Angel Parada DPM Jan 18, 2019 12:43
--- NOTE | 2019-01-18 12:58 | Pulmonology Progress Note ---
Assessment/Plan Assessment/Plan 1. Resp failure, hypercapnic 2. End-stage renal disease, on dialysis, status post multiple upper extremity vascular procedures. 3. Coronary artery bypass surgery. 4. Diabetes. 5. Dysphonia, tongue swelling, resolved; s/p trach 6. Trapped R lung with hydropneumothorax PLAN: seems stable, no SOB on vent weaning parameters are better CXR with trapped lung, improved disc w physicians weaning with IMV/PSV Subjective Constitutional: Reports: no symptoms Allergies: Coded Allergies: CEPHALEXIN (Unverified Allergy, Unknown, 02/24/14) SULFAMETHOXAZOLE (Unverified Allergy, Unknown, 02/24/14) TRIMETHOPRIM (Unverified Allergy, Unknown, 02/24/14) Objective Last 24 Hour Vital Signs Date Time Temp Pulse Resp B/P (MAP) Pulse Ox O2 Delivery O2 Flow Rate FiO2 01/18/19 10:30 79 21 40 01/18/19 08:48 81 22 40 01/18/19 08:45 100 01/18/19 08:00 40 01/18/19 08:00 Mechanical Ventilator 01/18/19 08:00 97.2 81 27 153/75 (101) 100 01/18/19 08:00 83 01/18/19 07:42 77 20 40 01/18/19 04:45 82 23 40 01/18/19 04:00 Mechanical Ventilator 01/18/19 04:00 79 01/18/19 04:00 40 01/18/19 03:21 80 22 40 01/18/19 01:09 82 21 40 01/18/19 00:00 Mechanical Ventilator 01/18/19 00:00 98.0 79 20 111/59 (76) 100 01/18/19 00:00 77 01/18/19 00:00 40 01/17/19 23:05 83 20 40 01/17/19 21:15 88 24 40 01/17/19 20:00 Mechanical Ventilator 01/17/19 20:00 78 01/17/19 20:00 97.9 76 21 139/91 (107) 100 01/17/19 18:43 82 26 40 01/17/19 17:09 80 25 40 01/17/19 16:00 40 01/17/19 16:00 97.3 75 24 157/72 (100) 100 01/17/19 16:00 75 01/17/19 15:00 Mechanical Ventilator 01/17/19 15:00 79 24 40 01/17/19 13:30 40 01/17/19 13:23 88 32 40 Intake and Output 01/17/19 01/18/19 18:59 06:59 Intake Total 590 ml 690 ml Balance 590 ml 690 ml Free Water 50 ml 150 ml Tube Feeding 540 ml 540 ml # Bowel Movements 1 Objective trach on vent General Appearance: no acute distress Respiratory/Chest: lungs clear, decreased breath sounds Cardiovascular: normal rate Laboratory Tests 01/18/19 03:20: White Blood Count 6.3, Red Blood Count 3.54L, Hemoglobin 8.9L, Hematocrit 28.2L , Mean Corpuscular Volume 80, Mean Corpuscular Hemoglobin 25.1L, Mean Corpuscular Hemoglobin Concent 31.5L, Red Cell Distribution Width 16.3H, Platelet Count 209, Mean Platelet Volume 6.4L, Neutrophils (%) (Auto) 74.7, Lymphocytes (%) (Auto) 15.3L, Monocytes (%) (Auto) 9.2, Eosinophils (%) (Auto) 0.1, Basophils (%) (Auto) 0.8, Sodium Level 130L, Potassium Level 3.8, Chloride Level 92L, Carbon Dioxide Level 31, Anion Gap 7, Blood Urea Nitrogen 68H, Creatinine 5.9H, Estimat Glomerular Filtration Rate 9.6, Glucose Level 154H, Uric Acid 4.9, Calcium Level 9.1, Phosphorus Level 3.9, Magnesium Level 2.1, Total Bilirubin 0.4, Aspartate Amino Transf (AST/SGOT) 13L, Alanine Aminotransferase (ALT/SGPT) 12, Alkaline Phosphatase 120H, Total Protein 6.5, Albumin 2.0L, Globulin 4.5, Albumin/Globulin Ratio 0.4L Current Medications Medications (Trade) Dose Ordered Sig/Aleks Route PRN Reason Start Time Stop Time Status Last Admin Dose Admin Acetaminophen (Tylenol) 650 mg Q6H PRN GT Mild Pain/Temp > 100.5 12/21/18 16:00 01/20/19 15:59 01/18/19 07:58 Apixaban (Eliquis) 2.5 mg BID GT 01/01/19 21:00 01/31/19 20:59 01/18/19 07:59 Aspirin (ASA) 81 mg DAILY PEG 01/19/19 09:00 02/18/19 08:59 Atorvastatin Calcium (Lipitor) 10 mg BEDTIME GT 01/18/19 21:00 02/17/19 20:59 Carvedilol (Coreg) 3.125 mg EVERY 12 HOURS PEG 01/18/19 21:00 02/17/19 20:59 Clotrimazole (Lotrimin) 1 applic DAILY TOPIC 01/08/19 18:00 02/07/19 17:59 01/18/19 08:00 Collagenase (Santyl) 1 applic DAILY TOPIC 12/29/18 09:00 01/28/19 08:59 01/18/19 08:00 Dextrose (Dextrose 50%) 25 ml Q30M PRN IV Hypoglycemia 12/31/18 23:00 01/30/19 22:59 Dextrose (Dextrose 50%) 50 ml Q30M PRN IV Hypoglycemia 12/31/18 23:00 01/30/19 22:59 Epoetin Vini (Epoetin Vini(ESRD on dialysis)) 10,000 unit FRI-FRI-FRI SUBQ 01/06/19 21:00 02/05/19 20:59 01/15/19 21:52 Escitalopram Oxalate (Lexapro) 20 mg DAILY GT 01/05/19 09:00 02/04/19 08:59 01/18/19 08:00 Hydralazine HCl (Apresoline) 25 mg Q4H PRN GT bp over 160 syst 01/06/19 15:00 02/05/19 14:59 Ibuprofen (Advil) 400 mg TIDPRN PRN ORAL For Pain 01/18/19 11:30 02/17/19 11:29 Insulin Aspart (NovoLOG) EVERY 6 HOURS SUBQ 01/01/19 00:00 01/31/19 00:00 01/18/19 12:20 Lansoprazole (Prevacid) 30 mg DAILY GT 01/16/19 09:00 02/15/19 08:59 01/18/19 07:59 Loperamide HCl (Imodium) 2 mg Q6H PRN GT Diarrhea 01/07/19 11:00 02/06/19 10:59 01/16/19 04:24 Mirtazapine (Remeron) 15 mg BEDTIME GT 12/21/18 21:00 01/20/19 20:59 01/17/19 22:14 Tacrolimus (Prograf) 2 mg MoWeFr@0000,1200 ORAL 12/28/18 00:00 01/27/19 00:00 01/18/19 12:18 Tacrolimus (Prograf) 2 mg SuTuThSa@0900,2100 ORAL 12/26/18 21:00 01/25/19 20:59 01/17/19 22:15 Saroj Mendoza MD Jan 18, 2019 12:58
--- NOTE | 2019-01-18 14:18 | General Progress Note ---
Assessment/Plan Assessment/Plan: #Right heel diabetic foot ulcer without osteomyelitis #PAD #Right IJ DVT -seen by Podiatry and ID -s/p Vanco x 2 weeks during HD -continue Eliquis -Vascular Surgery and Hematology following #Acute Resp hypercapnic failure s/p tracheostomy #Angioedema #Large right pleural effusion # R side trapped lung -continue trach care -Remains vent-dependant, breathing trials ongoing -Right thoracentesis 01/01/19 with 2.3 lt removed. Post procedure CXR with R trapped lung. -Spoke with Pulm, continue weaning trials #End-stage renal disease, on dialysis M-W- #RUE edema #Anasarca, ascites, scrotal edema, pleural effusion due to hypoalbuminemia -HD with UF per Nephrology -s/p PRBC transfusion during HD #Coronary artery disease -continue ASA, Coreg, atorvastatin -cardiology following #Type 2 DM -ISS #Acute metabolic encephalopathy -continue supportive care -Neurology following #history of chronic HCV infection #history of liver transplant -continue Prograf -GI following #Abdominal distension and ascites s/p therapeutic paracentesis -no nausea, vomiting or tenderness -continue supportive care -GI following -s/p paracentesis 12/31/18 4.1 lt #Dysphagia S/p PEG with PEG site cellulitis -s/p antibiotics per ID and GI -continue local wound care -tolerating tube feeds # FULL CODE Subjective Date patient seen: Jan 18, 2019 Time patient seen: 08:33 ROS Limited/Unobtainable: Yes Cardiovascular: Denies: chest pain Respiratory: Denies: cough Gastrointestinal/Abdominal: Denies: abdominal pain Allergies: Coded Allergies: CEPHALEXIN (Unverified Allergy, Unknown, 02/24/14) SULFAMETHOXAZOLE (Unverified Allergy, Unknown, 02/24/14) TRIMETHOPRIM (Unverified Allergy, Unknown, 02/24/14) Subjective Medicine follow up for acute resp failure, PAD, right heel infected DFU, ESRD, anasarca secondary to hypoalbuminemia, right IJ DVT. S/p 4 liter paracentesis and 2 liter thoracentesis. No new issues overnight Objective Last 24 Hour Vital Signs Date Time Temp Pulse Resp B/P (MAP) Pulse Ox O2 Delivery O2 Flow Rate FiO2 01/18/19 12:00 98.0 79 30 143/99 (114) 99 01/18/19 12:00 Mechanical Ventilator 6/3/19 12:00 77 01/18/19 12:00 40 01/18/19 10:30 79 21 40 01/18/19 09:00 40 01/18/19 08:48 81 22 40 01/18/19 08:45 100 01/18/19 08:00 40 01/18/19 08:00 Mechanical Ventilator 01/18/19 08:00 97.2 81 27 153/75 (101) 100 01/18/19 08:00 83 01/18/19 07:42 77 20 40 01/18/19 04:45 82 23 40 01/18/19 04:00 Mechanical Ventilator 01/18/19 04:00 79 01/18/19 04:00 40 01/18/19 03:21 80 22 40 01/18/19 01:09 82 21 40 01/18/19 00:00 Mechanical Ventilator 01/18/19 00:00 98.0 79 20 111/59 (76) 100 01/18/19 00:00 77 01/18/19 00:00 40 01/17/19 23:05 83 20 40 01/17/19 21:15 88 24 40 01/17/19 20:00 Mechanical Ventilator 01/17/19 20:00 78 01/17/19 20:00 97.9 76 21 139/91 (107) 100 01/17/19 18:43 82 26 40 01/17/19 17:09 80 25 40 01/17/19 16:00 40 01/17/19 16:00 97.3 75 24 157/72 (100) 100 01/17/19 16:00 75 01/17/19 15:00 Mechanical Ventilator 01/17/19 15:00 79 24 40 Intake and Output 01/17/19 01/18/19 18:59 06:59 Intake Total 590 ml 690 ml Balance 590 ml 690 ml Free Water 50 ml 150 ml Tube Feeding 540 ml 540 ml # Bowel Movements 1 Laboratory Tests 01/18/19 03:20: White Blood Count 6.3, Red Blood Count 3.54L, Hemoglobin 8.9L, Hematocrit 28.2L , Mean Corpuscular Volume 80, Mean Corpuscular Hemoglobin 25.1L, Mean Corpuscular Hemoglobin Concent 31.5L, Red Cell Distribution Width 16.3H, Platelet Count 209, Mean Platelet Volume 6.4L, Neutrophils (%) (Auto) 74.7, Lymphocytes (%) (Auto) 15.3L, Monocytes (%) (Auto) 9.2, Eosinophils (%) (Auto) 0.1, Basophils (%) (Auto) 0.8, Sodium Level 130L, Potassium Level 3.8, Chloride Level 92L, Carbon Dioxide Level 31, Anion Gap 7, Blood Urea Nitrogen 68H, Creatinine 5.9H, Estimat Glomerular Filtration Rate 9.6, Glucose Level 154H, Uric Acid 4.9, Calcium Level 9.1, Phosphorus Level 3.9, Magnesium Level 2.1, Total Bilirubin 0.4, Aspartate Amino Transf (AST/SGOT) 13L, Alanine Aminotransferase (ALT/SGPT) 12, Alkaline Phosphatase 120H, Total Protein 6.5, Albumin 2.0L, Globulin 4.5, Albumin/Globulin Ratio 0.4L Height (Feet): 5 Height (Inches): 4.00 Weight (Pounds): 215 General Appearance: no apparent distress, alert Cardiovascular: normal rate, regular rhythm Respiratory/Chest: lungs clear, normal breath sounds Abdomen: non tender, soft Dennis Branham MD Jan 18, 2019 14:18
[2019-01-18 16:00] VITALS: BP 99/70
--- NOTE | 2019-01-18 17:56 | Infectious Diseases Prog Note ---
Assessment/Plan Problems: (1) Diarrhea Assessment & Plan: improved, with no infectious etiology so far , and negative stool for C diff toxin , and no pathogens on stool culture , use laxatives as needed , monitor clinically , encourage hydration (2) Foot ulcer Assessment & Plan: with MRSA grew out of it in the past, S/P vancomycin treatment with HD for two weeks, had vascular eval with revascularization to the right leg , S/P ulcer resection by crime scene specialist . deep ulcer culture grew MRSA and E.coli with diphtheroids , possible colonization , with no evidence of active infection as per discussion with podiatry , no need to be started on antibiotics for now , will continue to monitor clinically and make recommendations as necessary . bone scan ruled out osteomyelitis of the heel before, couldn't do an MRI since on the vent . continue local wound care as per crime scene specialist . (3) Thrush, oral Assessment & Plan: continue local nystatin as needed , S/P micafungin for three weeks empirically (4) HCV antibody positive Assessment & Plan: no evidence of active infection, with undetectable viral load , suspect due to previous infection , cleared, S/P liver transplant . (5) DM (diabetes mellitus) Assessment & Plan: recommend tight glycemic control to keep blood glucose between 100-140 (6) CHF (congestive heart failure) Assessment & Plan: on HD , renal is following, monitor daily weight , S/P multiple thoracentesis (7) Severe tongue swelling Assessment & Plan: improving , s/p tracheostomy to protect his airway since respiratory status worsened . now improving, pulmonary is following (8) Pleural effusion Assessment & Plan: recurrent on the right, with lung collapse , S/P thoracentesis X 3 now with removal of 2.3 liters of clear fluids on 12/31/18 . await fluids culture and gram stain, with PH and Glucose level . PREVIOUS culture were negative with negative cytology. pulmonary is following (9) Ascites Assessment & Plan: S/P paracentesis with removal of 4.1 liters of fluids, culture so far is negative Assessment/Plan will continue to monitor patient on daily basis and make recommendations as necessary since he is high risk for recurrent infection Subjective Constitutional: Reports: no symptoms HEENT: Reports: no symptoms Respiratory: Reports: no symptoms Breasts: Reports: no symptoms Cardiovascular: Reports: no symptoms Gastrointestinal/Abdominal: Reports: no symptoms Genitourinary: Reports: no symptoms Neurologic: Reports: no symptoms Psychiatric: Reports: no symptoms Skin: Reports: no symptoms Endocrine: Reports: no symptoms Hematologic: Reports: no symptoms Musculoskeletal: Reports: no symptoms Allergies: Coded Allergies: CEPHALEXIN (Unverified Allergy, Unknown, 02/24/14) SULFAMETHOXAZOLE (Unverified Allergy, Unknown, 02/24/14) TRIMETHOPRIM (Unverified Allergy, Unknown, 02/24/14) Subjective he was comfortable, lying in bed, awake and responsive, no fever or chills, no significant secretions from the trach , no SOB . has left heel with wound VAC in place, but no draining coming out . no diarrhea . Objective Vital Signs Last 24 Hour Vital Signs Date Time Temp Pulse Resp B/P (MAP) Pulse Ox O2 Delivery O2 Flow Rate FiO2 01/18/19 17:06 81 28 40 01/18/19 16:00 Mechanical Ventilator 01/18/19 16:00 98.0 82 32 99/70 (80) 99 01/18/19 16:00 40 01/18/19 15:24 85 21 40 01/18/19 12:00 98.0 79 30 143/99 (114) 99 01/18/19 12:00 Mechanical Ventilator 01/18/19 12:00 77 01/18/19 12:00 40 01/18/19 10:30 79 21 40 01/18/19 09:00 40 01/18/19 08:48 81 22 40 01/18/19 08:45 100 01/18/19 08:00 40 01/18/19 08:00 Mechanical Ventilator 01/18/19 08:00 97.2 81 27 153/75 (101) 100 01/18/19 08:00 83 01/18/19 07:42 77 20 40 01/18/19 04:45 82 23 40 01/18/19 04:00 Mechanical Ventilator 01/18/19 04:00 79 01/18/19 04:00 40 01/18/19 03:21 80 22 40 01/18/19 01:09 82 21 40 01/18/19 00:00 Mechanical Ventilator 01/18/19 00:00 98.0 79 20 111/59 (76) 100 01/18/19 00:00 77 01/18/19 00:00 40 01/17/19 23:05 83 20 40 01/17/19 21:15 88 24 40 01/17/19 20:00 Mechanical Ventilator 01/17/19 20:00 78 01/17/19 20:00 97.9 76 21 139/91 (107) 100 01/17/19 18:43 82 26 40 Height (Feet): 5 Height (Inches): 4.00 Weight (Pounds): 215 General Appearance: WD/WN, no acute distress HEENT: normocephalic, atraumatic, anicteric, mucous membranes moist, PERRL Respiratory/Chest: chest wall non-tender, lungs clear, normal breath sounds, no respiratory distress, no accessory muscle use Cardiovascular: normal peripheral pulses, normal rate, regular rhythm, no gallop/murmur, no JVD Abdomen: normal bowel sounds, soft, non tender, no organomegaly, non distended , no mass, no scars Genitourinary: normal external genitalia Extremities: no cyanosis, no clubbing Skin: no rash, no lesions, no ulcers 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: drum carrier 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 normal, no motor/sensory deficits, abnormal gait, alert, oriented x 3, responsive, normal mood/affect Lymphatic: no neck adenopathy, no groin adenopathy Musculoskeletal: normal muscle bulk, no effusion Laboratory Tests Test 01/18/19 03:20 White Blood Count 6.3 K/UL (4.8-10.8) Red Blood Count 3.54 M/UL (4.70-6.10) L Hemoglobin 8.9 G/DL (14.2-18.0) L Hematocrit 28.2 % (42.0-52.0) L Mean Corpuscular Volume 80 FL (80-99) Mean Corpuscular Hemoglobin 25.1 PG (27.0-31.0) L Mean Corpuscular Hemoglobin Concent 31.5 G/DL (32.0-36.0) L Red Cell Distribution Width 16.3 % (11.6-14.8) H Platelet Count 209 K/UL (150-450) Mean Platelet Volume 6.4 FL (6.5-10.1) L Neutrophils (%) (Auto) 74.7 % (45.0-75.0) Lymphocytes (%) (Auto) 15.3 % (20.0-45.0) L Monocytes (%) (Auto) 9.2 % (1.0-10.0) Eosinophils (%) (Auto) 0.1 % (0.0-3.0) Basophils (%) (Auto) 0.8 % (0.0-2.0) Sodium Level 130 MMOL/L (136-145) L Potassium Level 3.8 MMOL/L (3.5-5.1) Chloride Level 92 MMOL/L (98-107) L Carbon Dioxide Level 31 MMOL/L (21-32) Anion Gap 7 mmol/L (5-15) Blood Urea Nitrogen 68 mg/dL (7-18) H Creatinine 5.9 MG/DL (0.55-1.30) H Estimat Glomerular Filtration Rate 9.6 mL/min (>60) Glucose Level 154 MG/DL (74-106) H Uric Acid 4.9 MG/DL (2.6-7.2) Calcium Level 9.1 MG/DL (8.5-10.1) Phosphorus Level 3.9 MG/DL (2.5-4.9) Magnesium Level 2.1 MG/DL (1.8-2.4) Total Bilirubin 0.4 MG/DL (0.2-1.0) Aspartate Amino Transf (AST/SGOT) 13 U/L (15-37) L Alanine Aminotransferase (ALT/SGPT) 12 U/L (12-78) Alkaline Phosphatase 120 U/L (46-116) H Total Protein 6.5 G/DL (6.4-8.2) Albumin 2.0 G/DL (3.4-5.0) L Globulin 4.5 g/dL Albumin/Globulin Ratio 0.4 (1.0-2.7) L Current Medications Medications (Trade) Dose Ordered Sig/Aleks Route PRN Reason Start Time Stop Time Status Last Admin Dose Admin Acetaminophen (Tylenol) 650 mg Q6H PRN GT Mild Pain/Temp > 100.5 12/21/18 16:00 01/20/19 15:59 01/18/19 07:58 Apixaban (Eliquis) 2.5 mg BID GT 01/01/19 21:00 01/31/19 20:59 01/18/19 07:59 Aspirin (ASA) 81 mg DAILY PEG 01/19/19 09:00 02/18/19 08:59 Atorvastatin Calcium (Lipitor) 10 mg BEDTIME GT 01/18/19 21:00 02/17/19 20:59 Carvedilol (Coreg) 3.125 mg EVERY 12 HOURS PEG 01/18/19 21:00 02/17/19 20:59 Clotrimazole (Lotrimin) 1 applic DAILY TOPIC 01/08/19 18:00 02/07/19 17:59 01/18/19 08:00 Collagenase (Santyl) 1 applic DAILY TOPIC 12/29/18 09:00 01/28/19 08:59 01/18/19 08:00 Dextrose (Dextrose 50%) 25 ml Q30M PRN IV Hypoglycemia 12/31/18 23:00 01/30/19 22:59 Dextrose (Dextrose 50%) 50 ml Q30M PRN IV Hypoglycemia 12/31/18 23:00 01/30/19 22:59 Docusate Sodium (Colace) 100 mg TWICE A DAY GT 01/18/19 18:00 02/17/19 17:59 Epoetin Vini (Epoetin Vini(ESRD on dialysis)) 10,000 unit FRI-FRI-FRI SUBQ 01/06/19 21:00 02/05/19 20:59 01/15/19 21:52 Escitalopram Oxalate (Lexapro) 20 mg DAILY GT 01/05/19 09:00 02/04/19 08:59 01/18/19 08:00 Hydralazine HCl (Apresoline) 25 mg Q4H PRN GT bp over 160 syst 01/06/19 15:00 02/05/19 14:59 Ibuprofen (Advil) 400 mg TIDPRN PRN ORAL For Pain 01/18/19 11:30 02/17/19 11:29 01/18/19 14:22 Insulin Aspart (NovoLOG) EVERY 6 HOURS SUBQ 01/01/19 00:00 01/31/19 00:00 01/18/19 12:20 Lansoprazole (Prevacid) 30 mg DAILY GT 01/16/19 09:00 02/15/19 08:59 01/18/19 07:59 Loperamide HCl (Imodium) 2 mg Q6H PRN GT Diarrhea 01/07/19 11:00 02/06/19 10:59 01/16/19 04:24 Mirtazapine (Remeron) 15 mg BEDTIME GT 12/21/18 21:00 01/20/19 20:59 01/17/19 22:14 Tacrolimus (Prograf) 2 mg MoWeFr@0000,1200 ORAL 12/28/18 00:00 01/27/19 00:00 01/18/19 12:18 Tacrolimus (Prograf) 2 mg SuTuThSa@0900,2100 ORAL 12/26/18 21:00 01/25/19 20:59 01/17/19 22:15 Francois Landis M.D. Jan 18, 2019 17:56
--- NOTE | 2019-01-18 18:23 | Hematology/Onc Progress Note ---
Assessment/Plan Assessment/Plan Assessment and Recs: # Anemia of chronic disease due to underlying chronic medical issues, range has been 8-11 --> ferritin is 633, tibc is low --> No evidence of hemolysis is noted, peripheral smear has been reviewed. --> Epogen with HD 3x/wk --> Medications have been reviewed --> evaluate with Gi team prn --> transfuse if hgb is < 7 (will trend CBC daily) --> hgb trend 11.2-->10.9-->10.8-->10.7-->10.2-->9.7-->9.7-->8.5-->9-->9.2-->8.4 -->7.7-->8.8-->9.1-->8.6-->8.3-->8.9 --> s/p transfusion on 01/06 # Failure to thrive is likely related to poor overall status, poor functional status --> GT++ --> with multiple decub ulcerations that are noted, seen by id/surgery --> s/p trach as well --> cea is wnl # Acute non-occlusive dvt, right extremity ultrasound (acute non-occlusive DVT in internal jugular) --> currently is on eliquis 2.5mg po bid --> do not recommend a SVC filter --> given prior bleeding risk, hold off on heparin gtt --> vasc surgeon is aware, seek recs # Coagulopathy likely secondary to decreased Vitk dependent cofactors (high INR , PT) --> monitor closely for any evidence of bleeding. Currently is on eliquis --> VIT K on prn basis sq can be administered --> recently has improved inr 1.2-->1.1-->1.2-->1.1-->1.1 # Acute respiratory failure is now s/p trach to vent --> as per surgery recs # Ground glass opacities present on imaging of lung --> with pleural effusions, s/p drainage at this time --> no evidence for malignancy is noted --> as per pulm/id # Pleural effusion --> s/p thoracentesis, s/p paracentesis 12/31 --> no evidence of malignancy -->01/14 cxr: Interstitial edema, small left pleural effusion # Hyperkalemia --> kayxelate on prn basis per renal --> monitor K # Renal failure --> per renal recs, appreciated --> getting hd as per schedule # Altered level of consciousness --> currently as per baseline --> neuro eval prn # PAD off heparin gtt and now on eliquis --> per vasc and cards --> 12/22 s/p right leg angiogram with intervention --> on eliquis, continue # Gt tube cellulitis, on topical abx as per id around site The timing of this note does not necessarily reflect the time of the patient was seen. Greatly appreciate consultation! Subjective Allergies: Coded Allergies: CEPHALEXIN (Unverified Allergy, Unknown, 02/24/14) SULFAMETHOXAZOLE (Unverified Allergy, Unknown, 02/24/14) TRIMETHOPRIM (Unverified Allergy, Unknown, 02/24/14) Subjective 11/30: comfortable, on abx, no complaints, on t-piece 12/01: to have hd done potentially tomorrow, is more alert/awake 12/02: no major bleeding, hgb remains approx 11, no changes 12/03: no events, breathing mildly better, hgb is improved 12/04: on vent/trach, no major changes, sr ekg 12/10: small amount of secretions, on trach/vent, no issues otherwise 12/11: no major issues, no complaints, labs reviewed, no sig changes 12/13: no events to report, no fevers or chills, awaiting placement 12/14: no changes, no major events to report, no fevers or chills 12/15: pending placement, getting gt feeds and hd as per renal 12/16: labs have been reviewed, cbc noted, no changes 12/17: no events, no fevers, no cp, hgb remains stable 12/18: restarted on heparin gtt, seen by pulm, cards 12/20: continues to be on heparin gtt, no bleeding reported, no f/c 12/21: hd for today, no fevers or chils, off hep gtt on eliquis 12/22: to get hd tomorrow, today is s/p right leg angiogram with intervention 12/23: hgb remins stable, no fevers or chills reported 12/24: no events, no bleeding, vitals reviewed, cbc stable 12/25: no events, no bleeding, on vent, hgb 9 12/27: no changes, no f/c, no night swearts, seen with other providers 12/28: right extremity ultrasound (acute non-occlusive DVT in internal jugular, on eliquis 12/29: no events, no night sweats, seen by gi, no bleeding 12/30: cbc has been reviewed, no f/c, no night sweats reported 12/31: no events, eliquis is on hold cbc has been reviewed, bp elevated 01/01: no fevers or chills, cbc reviewed, hgb 9.3, getting HD 01/02: no events noted, getting norco for pain, hgb stable 01/04: not events to report, no bleeding, refusing ivl at this time, cbc reviewed 01/05: no fevers or chills noted, s/p trach/vent, no f/c, no chills noted 01/06: no events, to get 1 unit prbc today, renal seen, on abx 01/07: hd for tomorrow, seen by renal, no events, cbc reviewed 01/08: getting Hd today, seen by renal, no major events, in sr 01/10: no events to report, to get hd tomorrow, hgb stable 01/11: on vent/trach, gtube, tolerating treatment well, hd today 01/12: remains nonverbal, stable, on vent/trach, no fc 01/13: no events noted, cbc has been reviewed 01/14: thora and para fluid still neg for malignancy, no bleeding 01/15: Pt examined at bedside. No acute events. Pt refusing IV access per nursing per nursing team. 01/17: Pt is awake and alert. Pt in stable condition. Hgb trending down: 8.3 will continue to monitor 01/18: Pt complain of abdominal pain and DIAZ. Hgb trend 8.3-->8.9 Objective Objective Current Medications Medications (Trade) Dose Ordered Sig/Aleks Route PRN Reason Start Time Stop Time Status Last Admin Dose Admin Acetaminophen (Tylenol) 650 mg Q6H PRN GT Mild Pain/Temp > 100.5 12/21/18 16:00 01/20/19 15:59 01/18/19 07:58 Apixaban (Eliquis) 2.5 mg BID GT 01/01/19 21:00 01/31/19 20:59 01/18/19 07:59 Aspirin (ASA) 81 mg DAILY PEG 01/19/19 09:00 02/18/19 08:59 Atorvastatin Calcium (Lipitor) 10 mg BEDTIME GT 01/18/19 21:00 02/17/19 20:59 Carvedilol (Coreg) 3.125 mg EVERY 12 HOURS PEG 01/18/19 21:00 02/17/19 20:59 Clotrimazole (Lotrimin) 1 applic DAILY TOPIC 01/08/19 18:00 02/07/19 17:59 01/18/19 08:00 Collagenase (Santyl) 1 applic DAILY TOPIC 12/29/18 09:00 01/28/19 08:59 01/18/19 08:00 Dextrose (Dextrose 50%) 25 ml Q30M PRN IV Hypoglycemia 12/31/18 23:00 01/30/19 22:59 Dextrose (Dextrose 50%) 50 ml Q30M PRN IV Hypoglycemia 12/31/18 23:00 01/30/19 22:59 Docusate Sodium (Colace) 100 mg TWICE A DAY GT 01/18/19 18:00 02/17/19 17:59 Epoetin Vini (Epoetin Vini(ESRD on dialysis)) 10,000 unit FRI-FRI-FRI SUBQ 01/06/19 21:00 02/05/19 20:59 01/15/19 21:52 Escitalopram Oxalate (Lexapro) 20 mg DAILY GT 01/05/19 09:00 02/04/19 08:59 01/18/19 08:00 Hydralazine HCl (Apresoline) 25 mg Q4H PRN GT bp over 160 syst 01/06/19 15:00 02/05/19 14:59 Ibuprofen (Advil) 400 mg TIDPRN PRN ORAL For Pain 01/18/19 11:30 02/17/19 11:29 01/18/19 14:22 Insulin Aspart (NovoLOG) EVERY 6 HOURS SUBQ 01/01/19 00:00 01/31/19 00:00 01/18/19 12:20 Lansoprazole (Prevacid) 30 mg DAILY GT 01/16/19 09:00 02/15/19 08:59 01/18/19 07:59 Loperamide HCl (Imodium) 2 mg Q6H PRN GT Diarrhea 01/07/19 11:00 02/06/19 10:59 01/16/19 04:24 Mirtazapine (Remeron) 15 mg BEDTIME GT 12/21/18 21:00 01/20/19 20:59 01/17/19 22:14 Tacrolimus (Prograf) 2 mg MoWeFr@0000,1200 ORAL 12/28/18 00:00 01/27/19 00:00 01/18/19 12:18 Tacrolimus (Prograf) 2 mg SuTuThSa@0900,2100 ORAL 12/26/18 21:00 01/25/19 20:59 01/17/19 22:15 Last 24 Hour Vital Signs Date Time Temp Pulse Resp B/P (MAP) Pulse Ox O2 Delivery O2 Flow Rate FiO2 01/18/19 17:06 81 28 40 01/18/19 16:00 Mechanical Ventilator 01/18/19 16:00 84 01/18/19 16:00 98.0 82 32 99/70 (80) 99 01/18/19 16:00 40 01/18/19 15:24 85 21 40 01/18/19 12:00 98.0 79 30 143/99 (114) 99 01/18/19 12:00 Mechanical Ventilator 01/18/19 12:00 77 01/18/19 12:00 40 01/18/19 10:30 79 21 40 01/18/19 09:00 40 01/18/19 08:48 81 22 40 01/18/19 08:45 100 01/18/19 08:00 40 01/18/19 08:00 Mechanical Ventilator 01/18/19 08:00 97.2 81 27 153/75 (101) 100 01/18/19 08:00 83 01/18/19 07:42 77 20 40 01/18/19 04:45 82 23 40 01/18/19 04:00 Mechanical Ventilator 01/18/19 04:00 79 01/18/19 04:00 40 01/18/19 03:21 80 22 40 01/18/19 01:09 82 21 40 01/18/19 00:00 Mechanical Ventilator 01/18/19 00:00 98.0 79 20 111/59 (76) 100 01/18/19 00:00 77 01/18/19 00:00 40 01/17/19 23:05 83 20 40 01/17/19 21:15 88 24 40 01/17/19 20:00 Mechanical Ventilator 01/17/19 20:00 78 01/17/19 20:00 97.9 76 21 139/91 (107) 100 01/17/19 18:43 82 26 40 01/17/19 17:09 80 25 40 01/17/19 16:00 40 01/17/19 16:00 97.3 75 24 157/72 (100) 100 01/17/19 16:00 75 01/17/19 15:00 Mechanical Ventilator 01/17/19 15:00 79 24 40 01/17/19 13:30 40 01/17/19 13:23 88 32 40 01/17/19 12:00 Mechanical Ventilator 01/17/19 12:00 97.7 83 34 176/96 (122) 100 01/17/19 12:00 87 01/17/19 12:00 40 01/17/19 10:30 40 01/17/19 10:30 78 31 40 01/17/19 10:30 100 01/17/19 08:55 88 24 40 01/17/19 08:00 40 01/17/19 08:00 Mechanical Ventilator 01/17/19 08:00 76 01/17/19 08:00 97.7 75 24 169/92 (117) 100 01/17/19 07:00 92 26 40 01/17/19 04:56 91 26 40 01/17/19 04:00 Mechanical Ventilator 01/17/19 04:00 76 01/17/19 04:00 97.8 80 21 113/58 (76) 100 01/17/19 04:00 40 01/17/19 03:23 90 25 40 01/17/19 01:37 81 25 40 01/17/19 00:00 98.0 68 24 113/58 (76) 99 01/17/19 00:00 Mechanical Ventilator 01/16/19 23:37 76 6/1/19 23:13 89 22 40 01/16/19 20:49 83 24 40 01/16/19 20:00 Mechanical Ventilator 01/16/19 20:00 40 01/16/19 20:00 97.7 82 25 140/65 (90) 100 01/16/19 19:23 80 01/16/19 18:52 81 21 40 Intake and Output 01/17/19 01/18/19 19:00 07:00 Intake Total 640 ml 690 ml Balance 640 ml 690 ml Free Water 100 ml 150 ml Tube Feeding 540 ml 540 ml # Bowel Movements 1 Labs Test 01/15/19 19:00 01/18/19 03:20 White Blood Count 7.1 K/UL (4.8-10.8) 6.3 K/UL (4.8-10.8) Red Blood Count 3.29 M/UL (4.70-6.10) 3.54 M/UL (4.70-6.10) Hemoglobin 8.3 G/DL (14.2-18.0) 8.9 G/DL (14.2-18.0) Hematocrit 25.4 % (42.0-52.0) 28.2 % (42.0-52.0) Mean Corpuscular Volume 77 FL (80-99) 80 FL (80-99) Mean Corpuscular Hemoglobin 25.1 PG (27.0-31.0) 25.1 PG (27.0-31.0) Mean Corpuscular Hemoglobin Concent 32.5 G/DL (32.0-36.0) 31.5 G/DL (32.0-36.0) Red Cell Distribution Width 15.1 % (11.6-14.8) 16.3 % (11.6-14.8) Platelet Count 187 K/UL (150-450) 209 K/UL (150-450) Mean Platelet Volume 4.9 FL (6.5-10.1) 6.4 FL (6.5-10.1) Neutrophils (%) (Auto) 77.0 % (45.0-75.0) 74.7 % (45.0-75.0) Lymphocytes (%) (Auto) 15.4 % (20.0-45.0) 15.3 % (20.0-45.0) Monocytes (%) (Auto) 6.5 % (1.0-10.0) 9.2 % (1.0-10.0) Eosinophils (%) (Auto) 0.0 % (0.0-3.0) 0.1 % (0.0-3.0) Basophils (%) (Auto) 1.1 % (0.0-2.0) 0.8 % (0.0-2.0) Sodium Level 134 MMOL/L (136-145) 130 MMOL/L (136-145) Potassium Level 3.5 MMOL/L (3.5-5.1) 3.8 MMOL/L (3.5-5.1) Chloride Level 95 MMOL/L (98-107) 92 MMOL/L (98-107) Carbon Dioxide Level 30 MMOL/L (21-32) 31 MMOL/L (21-32) Anion Gap 9 mmol/L (5-15) 7 mmol/L (5-15) Blood Urea Nitrogen 61 mg/dL (7-18) 68 mg/dL (7-18) Creatinine 5.2 MG/DL (0.55-1.30) 5.9 MG/DL (0.55-1.30) Estimat Glomerular Filtration Rate 11.1 mL/min (>60) 9.6 mL/min (>60) Glucose Level 148 MG/DL (74-106) 154 MG/DL (74-106) Calcium Level 8.5 MG/DL (8.5-10.1) 9.1 MG/DL (8.5-10.1) Total Bilirubin 0.3 MG/DL (0.2-1.0) 0.4 MG/DL (0.2-1.0) Aspartate Amino Transf (AST/SGOT) 13 U/L (15-37) 13 U/L (15-37) Alanine Aminotransferase (ALT/SGPT) 13 U/L (12-78) 12 U/L (12-78) Alkaline Phosphatase 147 U/L (46-116) 120 U/L (46-116) Total Protein 5.8 G/DL (6.4-8.2) 6.5 G/DL (6.4-8.2) Albumin 2.0 G/DL (3.4-5.0) 2.0 G/DL (3.4-5.0) Globulin 3.8 g/dL 4.5 g/dL Albumin/Globulin Ratio 0.5 (1.0-2.7) 0.4 (1.0-2.7) Uric Acid 4.9 MG/DL (2.6-7.2) Phosphorus Level 3.9 MG/DL (2.5-4.9) Magnesium Level 2.1 MG/DL (1.8-2.4) Height (Feet): 5 Height (Inches): 4.00 Weight (Pounds): 215 Objective PE General Appearance: mild distress, moderate distress Lines, tubes and drains: peripheral HEENT: EOMI, ++ thrush, tonsils swollen ++trach Neck: normal inspection Respiratory/Chest: decreased breath sounds, accessory muscle use Cardiovascular/Chest: tachycardia Abdomen: soft, no organomegaly, no mass, ++ peg Extremities: other Skin Exam: warm/dry, rash Neurologic: alert, responsive Zacarias Khoury MD Jan 18, 2019 18:23
[2019-01-18] MEDS: Docusate 100mg/10ml Liq GT SCH (18:29)
[2019-01-18 20:00] VITALS: BP 163/81
[2019-01-18] MEDS: Epoetin Alfa-EPBX(ESRD on dialysis)10,000 unit/ml vial SUBQ SCH (21:11)
[2019-01-19] VITALS: BP 157/56
[2019-01-19] MEDS: NovoLOG Insulin Flexpen SUBQ SCH ×5 (00:12→23:14)
--- NOTE | 2019-01-19 02:00 | Progress Note ---
DATE: 01/18/2019 SUBJECTIVE: The patient is doing well. Presents with depressed mood, low energy, and anxiety. Compliant with care and medication. MENTAL STATUS EXAMINATION: The patient is alert and oriented times self, place, and situation. Mood is dysphoric. Affect is constricted and congruent with mood. Thought process is concrete. Thought content, no suicidal or homicidal ideation. ASSESSMENT: 1. Anxiety disorder. 2. Major depressive disorder. PLAN: 1. The patient will be continued on current medication. 2. Provide the patient with reality orientation and supportive therapy. Jeffrey Lala M.D. DR: LINDA JOB#: [id number] CC:
[2019-01-19 04:00] VITALS: BP 152/80
[2019-01-19 05:11] LABS: BASOPHILS % (AUTO) 2.8 % (0.0-2.0); EOSINOPHILS % (AUTO) 0.1 % (0.0-3.0); HEMATOCRIT 28.8 % (42.0-52.0); HEMOGLOBIN 8.9 G/DL (14.2-18.0); LYMPHOCYTES % (AUTO) 16.4 % (20.0-45.0); MEAN CORPUSCULAR VOLUME 80 FL (80-99); MONOCYTES % (AUTO) 11.7 % (1.0-10.0); NEUTROPHILS % (AUTO) 69.2 % (45.0-75.0); PLATELET COUNT 193 K/UL (150-450); RED BLOOD COUNT 3.58 M/UL (4.70-6.10); RED CELL DISTRIBUTION WIDTH 16.9 % (11.6-14.8); WHITE BLOOD COUNT 5.9 K/UL (4.8-10.8)
[2019-01-19 05:44] LABS: ALANINE AMINOTRANSFERASE 15 U/L (12-78); ALBUMIN/GLOBULIN RATIO 0.4 (1.0-2.7); ALKALINE PHOSPHATASE 117 U/L (46-116); ANION GAP 12 mmol/L (5-15); ASPARTATE AMINO TRANSFERASE 19 U/L (15-37); BILIRUBIN,TOTAL 0.3 MG/DL (0.2-1.0); BLOOD UREA NITROGEN 69 mg/dL (7-18); CALCIUM 9.4 MG/DL (8.5-10.1); CARBON DIOXIDE 27 MMOL/L (21-32); CHLORIDE 92 MMOL/L (98-107); POTASSIUM 4.1 MMOL/L (3.5-5.1); SODIUM 131 MMOL/L (136-145)
[2019-01-19 08:00] VITALS: BP 155/99
[2019-01-19] MEDS: Aspirin Baby 81mg PEG SCH (09:01)
[2019-01-19] MEDS: Docusate 100mg/10ml Liq GT SCH ×2 (09:01→17:16)
[2019-01-19] MEDS: Eliquis 2.5mg tablet GT SCH ×2 (09:04→17:17)
--- NOTE | 2019-01-19 10:36 | GI Progress Note ---
Assessment/Plan Problems: (1) Foot ulcer ICD Codes: L97.509 - Non-pressure chronic ulcer of other part of unspecified foot with unspecified severity SNOMED: 53876936 Qualifiers: Qualified Codes: L97.511 - Non-pressure chronic ulcer of other part of right foot limited to breakdown of skin (2) DM (diabetes mellitus) ICD Codes: E11.9 - Type 2 diabetes mellitus without complications SNOMED: 57049449 (3) Transplant ICD Codes: Z94.9 - Transplanted organ and tissue status, unspecified SNOMED: 166087894 Status: unchanged Status Narrative Discussed with Dr. Escalera. Assessment/Plan History of liver transplant, currently on Prograf History of cholecystectomy status post tracheostomy and PEG Infected G-tube site, fu ID recs C. difficile negative x 2 would care cx >> GRAM NEGATIVE BACILLUS CT AP reviewed, Moderate to large right pleural effusion. Moderate Ascites. s/p Paracentesis yielding 4.1 yield, r/o SBP >> negative for malignant cells Status post right thoracentesis yielding 2.1 L >> negative for malignant cells Hep C antibody present, pending PCR Continue G-tube feedings GT site care BID/prn topical abx around GT site per ID HD per nephro cont tacrolimus prn transfusions ppi zofran prn Imodium prn, Lomotil for persistent diarrhea follow labs supportive care The patient was seen and examined at bedside and all new and available data was reviewed in the patients chart. I agree with the above findings, impression and plan. (Patient seen earlier today. Signature stamp does not reflect patient encounter time.). - Jorge Escalera MD Subjective Subjective Limited abdominal distention and discomfort improved diarrhea Objective Last 24 Hour Vital Signs Date Time Temp Pulse Resp B/P (MAP) Pulse Ox O2 Delivery O2 Flow Rate FiO2 01/19/19 09:01 82 155/99 01/19/19 08:50 85 23 40 01/19/19 08:00 40 01/19/19 08:00 Mechanical Ventilator 01/19/19 08:00 89 01/19/19 08:00 98.1 82 22 155/99 (117) 100 01/19/19 07:59 90 29 40 01/19/19 07:25 85 33 40 01/19/19 05:52 83 23 40 01/19/19 04:00 40 01/19/19 04:00 97.5 80 22 152/80 (104) 100 01/19/19 04:00 Mechanical Ventilator 01/19/19 03:56 83 01/19/19 03:09 84 25 40 01/19/19 01:10 81 25 40 01/19/19 00:00 98.3 76 22 157/56 (89) 100 01/19/19 00:00 40 01/19/19 00:00 Mechanical Ventilator 01/18/19 23:28 86 27 40 01/18/19 23:23 82 01/18/19 21:28 84 29 40 01/18/19 21:10 85 163/81 01/18/19 20:00 97.6 85 28 163/81 (108) 100 01/18/19 20:00 40 01/18/19 19:38 82 29 40 01/18/19 19:35 85 01/18/19 19:00 Mechanical Ventilator 01/18/19 17:06 81 28 40 01/18/19 16:00 Mechanical Ventilator 01/18/19 16:00 84 01/18/19 16:00 98.0 82 32 99/70 (80) 99 01/18/19 16:00 40 01/18/19 15:24 85 21 40 01/18/19 12:00 98.0 79 30 143/99 (114) 99 01/18/19 12:00 Mechanical Ventilator 01/18/19 12:00 77 01/18/19 12:00 40 Intake and Output 01/18/19 01/19/19 19:00 07:00 Intake Total 640 ml 615 ml Output Total 6000 ml 19934 ml Balance -5360 ml -90753 ml Free Water 100 ml 120 ml Tube Feeding 540 ml 495 ml Hemodialysis UF 6000 ml 61111 ml # Bowel Movements 1 2 Laboratory Tests Test 01/19/19 03:50 White Blood Count 5.9 K/UL (4.8-10.8) Red Blood Count 3.58 M/UL (4.70-6.10) L Hemoglobin 8.9 G/DL (14.2-18.0) L Hematocrit 28.8 % (42.0-52.0) L Mean Corpuscular Volume 80 FL (80-99) Mean Corpuscular Hemoglobin 24.9 PG (27.0-31.0) L Mean Corpuscular Hemoglobin Concent 31.0 G/DL (32.0-36.0) L Red Cell Distribution Width 16.9 % (11.6-14.8) H Platelet Count 193 K/UL (150-450) Mean Platelet Volume 6.6 FL (6.5-10.1) Neutrophils (%) (Auto) 69.2 % (45.0-75.0) Lymphocytes (%) (Auto) 16.4 % (20.0-45.0) L Monocytes (%) (Auto) 11.7 % (1.0-10.0) H Eosinophils (%) (Auto) 0.1 % (0.0-3.0) Basophils (%) (Auto) 2.8 % (0.0-2.0) H Sodium Level 131 MMOL/L (136-145) L Potassium Level 4.1 MMOL/L (3.5-5.1) Chloride Level 92 MMOL/L (98-107) L Carbon Dioxide Level 27 MMOL/L (21-32) Anion Gap 12 mmol/L (5-15) Blood Urea Nitrogen 69 mg/dL (7-18) H Creatinine 6.0 MG/DL (0.55-1.30) H Estimat Glomerular Filtration Rate 9.4 mL/min (>60) Glucose Level 138 MG/DL (74-106) H Calcium Level 9.4 MG/DL (8.5-10.1) Total Bilirubin 0.3 MG/DL (0.2-1.0) Aspartate Amino Transf (AST/SGOT) 19 U/L (15-37) Alanine Aminotransferase (ALT/SGPT) 15 U/L (12-78) Alkaline Phosphatase 117 U/L (46-116) H Total Protein 6.6 G/DL (6.4-8.2) Albumin 2.0 G/DL (3.4-5.0) L Globulin 4.6 g/dL Albumin/Globulin Ratio 0.4 (1.0-2.7) L Height (Feet): 5 Height (Inches): 4.00 Weight (Pounds): 220 General Appearance: WD/WN, no apparent distress, alert Cardiovascular: normal rate Respiratory/Chest: normal breath sounds, no respiratory distress, other - mech vent Abdominal Exam: normal bowel sounds, non tender, soft, GT site - c/d/i Extremities: non-tender Kelvin Briggs NP Jan 19, 2019 10:35
--- NOTE | 2019-01-19 10:38 | Cardiac Electrophysiology PN ---
Assessment/Plan Assessment/Plan 1. Troponin leak due to renal failure. No CP or SOB. Nl EF 2. Hx of CABG. Resumed Coreg, aspirin and Lipitor yesterday 3. NSVT in setting of old NM and CABG. EF 55%. Continue Coreg. No Syncope 4. CHF and right pleural effusion. On hemodialysis. S/P Thoracentesis 5. S/P Right sided [employer] DDD pacemaker with Nl Fx. 6. End-stage renal disease, on hemodialysis MWF per Dr. Stevens 7. Multilevel AOD LE's with non-healing Right foot ulcer. Had abdominal angiogram per Dr Salmeron Antibiotic per Dr. Landis. FU by Dr. Huizar S/P peripheral intervention by Dr. Salmeron 12/22/18 Right foot on Wound-Vac 8. History of liver transplant on Prograf 9. Respiratory failure, S/P tracheostomy. 10. Pleural effusion. s/p 2300 cc thoracentesis 01/01/19 11. Dysphagia, S/P PEG DW RN Subjective Subjective Had 3 liter HD yesterday. Alert in NAD.No CP or SOB. Awaiting transfer to [facility]. Objective Last 24 Hour Vital Signs Date Time Temp Pulse Resp B/P (MAP) Pulse Ox O2 Delivery O2 Flow Rate FiO2 01/19/19 09:01 82 155/99 01/19/19 08:50 85 23 40 01/19/19 08:00 40 01/19/19 08:00 Mechanical Ventilator 01/19/19 08:00 89 01/19/19 08:00 98.1 82 22 155/99 (117) 100 01/19/19 07:59 90 29 40 01/19/19 07:25 85 33 40 01/19/19 05:52 83 23 40 01/19/19 04:00 40 01/19/19 04:00 97.5 80 22 152/80 (104) 100 01/19/19 04:00 Mechanical Ventilator 01/19/19 03:56 83 01/19/19 03:09 84 25 40 01/19/19 01:10 81 25 40 01/19/19 00:00 98.3 76 22 157/56 (89) 100 01/19/19 00:00 40 01/19/19 00:00 Mechanical Ventilator 01/18/19 23:28 86 27 40 01/18/19 23:23 82 01/18/19 21:28 84 29 40 01/18/19 21:10 85 163/81 01/18/19 20:00 97.6 85 28 163/81 (108) 100 01/18/19 20:00 40 01/18/19 19:38 82 29 40 01/18/19 19:35 85 01/18/19 19:00 Mechanical Ventilator 01/18/19 17:06 81 28 40 01/18/19 16:00 Mechanical Ventilator 01/18/19 16:00 84 01/18/19 16:00 98.0 82 32 99/70 (80) 99 01/18/19 16:00 40 01/18/19 15:24 85 21 40 01/18/19 12:00 98.0 79 30 143/99 (114) 99 01/18/19 12:00 Mechanical Ventilator 01/18/19 12:00 77 01/18/19 12:00 40 Intake and Output 01/18/19 01/19/19 19:00 07:00 Intake Total 640 ml 615 ml Output Total 6000 ml 10380 ml Balance -5360 ml -21153 ml Free Water 100 ml 120 ml Tube Feeding 540 ml 495 ml Hemodialysis UF 6000 ml 88099 ml # Bowel Movements 1 2 Laboratory Tests Test 01/19/19 03:50 White Blood Count 5.9 K/UL (4.8-10.8) Red Blood Count 3.58 M/UL (4.70-6.10) L Hemoglobin 8.9 G/DL (14.2-18.0) L Hematocrit 28.8 % (42.0-52.0) L Mean Corpuscular Volume 80 FL (80-99) Mean Corpuscular Hemoglobin 24.9 PG (27.0-31.0) L Mean Corpuscular Hemoglobin Concent 31.0 G/DL (32.0-36.0) L Red Cell Distribution Width 16.9 % (11.6-14.8) H Platelet Count 193 K/UL (150-450) Mean Platelet Volume 6.6 FL (6.5-10.1) Neutrophils (%) (Auto) 69.2 % (45.0-75.0) Lymphocytes (%) (Auto) 16.4 % (20.0-45.0) L Monocytes (%) (Auto) 11.7 % (1.0-10.0) H Eosinophils (%) (Auto) 0.1 % (0.0-3.0) Basophils (%) (Auto) 2.8 % (0.0-2.0) H Sodium Level 131 MMOL/L (136-145) L Potassium Level 4.1 MMOL/L (3.5-5.1) Chloride Level 92 MMOL/L (98-107) L Carbon Dioxide Level 27 MMOL/L (21-32) Anion Gap 12 mmol/L (5-15) Blood Urea Nitrogen 69 mg/dL (7-18) H Creatinine 6.0 MG/DL (0.55-1.30) H Estimat Glomerular Filtration Rate 9.4 mL/min (>60) Glucose Level 138 MG/DL (74-106) H Calcium Level 9.4 MG/DL (8.5-10.1) Total Bilirubin 0.3 MG/DL (0.2-1.0) Aspartate Amino Transf (AST/SGOT) 19 U/L (15-37) Alanine Aminotransferase (ALT/SGPT) 15 U/L (12-78) Alkaline Phosphatase 117 U/L (46-116) H Total Protein 6.6 G/DL (6.4-8.2) Albumin 2.0 G/DL (3.4-5.0) L Globulin 4.6 g/dL Albumin/Globulin Ratio 0.4 (1.0-2.7) L Objective HEAD AND NECK: No JVD. Tracheostomy intact LUNGS: Clear CARDIOVASCULAR: Irregular S1 and S2 with no gallop. Sternotomy is intact Pacemaker in the right subclavian ABDOMEN: Soft. PEG in place EXTREMITIES: Right heel connected to WoundVac Shivam Sharpe MD Jan 19, 2019 10:38
--- NOTE | 2019-01-19 11:28 | Nephrology Progress Note ---
Assessment/Plan Problem List: (1) ESRD (end stage renal disease) on dialysis (2) Foot ulcer (3) CHF (congestive heart failure) Assessment: Ej Fx 20 % (4) Pacemaker (5) Acute respiratory failure Assessment: with Co2 retention (6) G-tube site cellulitis Assessment ESRD with high K and SOB on admit Foot ulcer, likely infected High Troponin likely NSTMI Pacer , Pleural effusion s/p CABGS s/p Liver transplant Plan dialysis 3 times weekly labs before HD noted BP low- improved on midodrine per consultants, GI GT site infection, topical antibiotic Neuro note appreciated placement in process vascular esteban regarding heel ulcer per Dr Mcgill pain med change to dilaudid GT Now has tracheostomy and PEG Adjust BP meds add nitro paste TID Antibiotics by ID per cardio and ID Podiatry and Vascular surgical fu ? DC planning? Subjective ROS Limited/Unobtainable: No Objective Objective Last 24 Hour Vital Signs Date Time Temp Pulse Resp B/P (MAP) Pulse Ox O2 Delivery O2 Flow Rate FiO2 01/19/19 09:01 82 155/99 01/19/19 08:50 85 23 40 01/19/19 08:00 40 01/19/19 08:00 Mechanical Ventilator 01/19/19 08:00 89 01/19/19 08:00 98.1 82 22 155/99 (117) 100 01/19/19 07:59 90 29 40 01/19/19 07:25 100 01/19/19 07:25 85 33 40 01/19/19 05:52 83 23 40 01/19/19 04:00 40 01/19/19 04:00 97.5 80 22 152/80 (104) 100 01/19/19 04:00 Mechanical Ventilator 01/19/19 03:56 83 01/19/19 03:09 84 25 40 01/19/19 01:10 81 25 40 01/19/19 00:00 98.3 76 22 157/56 (89) 100 01/19/19 00:00 40 01/19/19 00:00 Mechanical Ventilator 01/18/19 23:28 86 27 40 01/18/19 23:23 82 01/18/19 21:28 84 29 40 01/18/19 21:10 85 163/81 01/18/19 20:00 97.6 85 28 163/81 (108) 100 01/18/19 20:00 40 01/18/19 19:38 82 29 40 01/18/19 19:35 85 01/18/19 19:00 Mechanical Ventilator 01/18/19 17:06 81 28 40 01/18/19 16:00 Mechanical Ventilator 01/18/19 16:00 84 01/18/19 16:00 98.0 82 32 99/70 (80) 99 01/18/19 16:00 40 01/18/19 15:24 85 21 40 01/18/19 12:00 98.0 79 30 143/99 (114) 99 01/18/19 12:00 Mechanical Ventilator 01/18/19 12:00 77 01/18/19 12:00 40 Intake and Output 01/18/19 01/19/19 19:00 07:00 Intake Total 640 ml 615 ml Output Total 6000 ml 05627 ml Balance -5360 ml -74612 ml Free Water 100 ml 120 ml Tube Feeding 540 ml 495 ml Hemodialysis UF 6000 ml 28018 ml # Bowel Movements 1 2 Laboratory Tests 01/19/19 03:50: White Blood Count 5.9, Red Blood Count 3.58L, Hemoglobin 8.9L, Hematocrit 28.8L , Mean Corpuscular Volume 80, Mean Corpuscular Hemoglobin 24.9L, Mean Corpuscular Hemoglobin Concent 31.0L, Red Cell Distribution Width 16.9H, Platelet Count 193, Mean Platelet Volume 6.6, Neutrophils (%) (Auto) 69.2, Lymphocytes (%) (Auto) 16.4L, Monocytes (%) (Auto) 11.7H, Eosinophils (%) (Auto ) 0.1, Basophils (%) (Auto) 2.8H, Sodium Level 131L, Potassium Level 4.1, Chloride Level 92L, Carbon Dioxide Level 27, Anion Gap 12, Blood Urea Nitrogen 69H, Creatinine 6.0H, Estimat Glomerular Filtration Rate 9.4, Glucose Level 138H , Calcium Level 9.4, Total Bilirubin 0.3, Aspartate Amino Transf (AST/SGOT) 19, Alanine Aminotransferase (ALT/SGPT) 15, Alkaline Phosphatase 117H, Total Protein 6.6, Albumin 2.0L, Globulin 4.6, Albumin/Globulin Ratio 0.4L Height (Feet): 5 Height (Inches): 4.00 Weight (Pounds): 220 Neck: other - vented Cardiovascular: normal rate Respiratory/Chest: decreased breath sounds Abdomen: soft Objective no other change Nakul Stevens MD Jan 19, 2019 11:28
[2019-01-19 12:00] VITALS: BP 155/95
--- NOTE | 2019-01-19 12:53 | General Progress Note ---
Assessment/Plan Status: unchanged Assessment/Plan: #Right heel diabetic foot ulcer without osteomyelitis #PAD #Right IJ DVT -seen by Podiatry and ID -s/p Vanco x 2 weeks during HD -continue Eliquis -Vascular Surgery and Hematology following #Acute Resp hypercapnic failure s/p tracheostomy #Angioedema #Large right pleural effusion # R side trapped lung -continue trach care -Remains vent-dependant, breathing trials ongoing -Right thoracentesis 01/01/19 with 2.3 lt removed. Post procedure CXR with R trapped lung. -Spoke with Pulm, vent weaning ongoing #End-stage renal disease, on dialysis M-W- #RUE edema #Anasarca, ascites, scrotal edema, pleural effusion due to hypoalbuminemia -HD with UF per Nephrology -s/p PRBC transfusion during HD #Coronary artery disease -continue ASA, Coreg, atorvastatin -cardiology following #Type 2 DM -ISS #Acute metabolic encephalopathy -continue supportive care -Neurology following #history of chronic HCV infection #history of liver transplant -continue Prograf -GI following #Abdominal distension and ascites s/p therapeutic paracentesis -no nausea, vomiting or tenderness -continue supportive care -GI following -s/p paracentesis 12/31/18 4.1 lt #Dysphagia S/p PEG with PEG site cellulitis -s/p antibiotics per ID and GI -continue local wound care -tolerating tube feeds # FULL CODE Subjective Date patient seen: Jan 19, 2019 Time patient seen: 07:29 ROS Limited/Unobtainable: Yes Cardiovascular: Denies: chest pain Respiratory: Denies: cough Gastrointestinal/Abdominal: Denies: abdominal pain Allergies: Coded Allergies: CEPHALEXIN (Unverified Allergy, Unknown, 02/24/14) SULFAMETHOXAZOLE (Unverified Allergy, Unknown, 02/24/14) TRIMETHOPRIM (Unverified Allergy, Unknown, 02/24/14) Subjective Medicine follow up for acute resp failure, PAD, right heel infected DFU, ESRD, anasarca secondary to hypoalbuminemia, right IJ DVT. S/p 4 liter paracentesis and 2 liter thoracentesis. No new issues overnight. No new complaints Objective Last 24 Hour Vital Signs Date Time Temp Pulse Resp B/P (MAP) Pulse Ox O2 Delivery O2 Flow Rate FiO2 01/19/19 12:00 Mechanical Ventilator 01/19/19 12:00 40 01/19/19 11:35 82 30 40 01/19/19 09:01 82 155/99 01/19/19 08:50 85 23 40 01/19/19 08:00 40 01/19/19 08:00 Mechanical Ventilator 01/19/19 08:00 89 01/19/19 08:00 98.1 82 22 155/99 (117) 100 01/19/19 07:59 90 29 40 01/19/19 07:25 100 01/19/19 07:25 85 33 40 01/19/19 05:52 83 23 40 01/19/19 04:00 40 01/19/19 04:00 97.5 80 22 152/80 (104) 100 01/19/19 04:00 Mechanical Ventilator 01/19/19 03:56 83 01/19/19 03:09 84 25 40 01/19/19 01:10 81 25 40 01/19/19 00:00 98.3 76 22 157/56 (89) 100 01/19/19 00:00 40 01/19/19 00:00 Mechanical Ventilator 01/18/19 23:28 86 27 40 01/18/19 23:23 82 01/18/19 21:28 84 29 40 01/18/19 21:10 85 163/81 01/18/19 20:00 97.6 85 28 163/81 (108) 100 01/18/19 20:00 40 01/18/19 19:38 82 29 40 01/18/19 19:35 85 01/18/19 19:00 Mechanical Ventilator 01/18/19 17:06 81 28 40 01/18/19 16:00 Mechanical Ventilator 01/18/19 16:00 84 01/18/19 16:00 98.0 82 32 99/70 (80) 99 01/18/19 16:00 40 01/18/19 15:24 85 21 40 Intake and Output 01/18/19 01/19/19 19:00 07:00 Intake Total 640 ml 615 ml Output Total 6000 ml 92618 ml Balance -5360 ml -51965 ml Free Water 100 ml 120 ml Tube Feeding 540 ml 495 ml Hemodialysis UF 6000 ml 33467 ml # Bowel Movements 1 2 Laboratory Tests 01/19/19 03:50: White Blood Count 5.9, Red Blood Count 3.58L, Hemoglobin 8.9L, Hematocrit 28.8L , Mean Corpuscular Volume 80, Mean Corpuscular Hemoglobin 24.9L, Mean Corpuscular Hemoglobin Concent 31.0L, Red Cell Distribution Width 16.9H, Platelet Count 193, Mean Platelet Volume 6.6, Neutrophils (%) (Auto) 69.2, Lymphocytes (%) (Auto) 16.4L, Monocytes (%) (Auto) 11.7H, Eosinophils (%) (Auto ) 0.1, Basophils (%) (Auto) 2.8H, Sodium Level 131L, Potassium Level 4.1, Chloride Level 92L, Carbon Dioxide Level 27, Anion Gap 12, Blood Urea Nitrogen 69H, Creatinine 6.0H, Estimat Glomerular Filtration Rate 9.4, Glucose Level 138H , Calcium Level 9.4, Total Bilirubin 0.3, Aspartate Amino Transf (AST/SGOT) 19, Alanine Aminotransferase (ALT/SGPT) 15, Alkaline Phosphatase 117H, Total Protein 6.6, Albumin 2.0L, Globulin 4.6, Albumin/Globulin Ratio 0.4L Height (Feet): 5 Height (Inches): 4.00 Weight (Pounds): 220 General Appearance: alert Cardiovascular: normal rate, regular rhythm Respiratory/Chest: lungs clear, normal breath sounds, no respiratory distress Abdomen: non tender, soft Dennis Branham MD Jan 19, 2019 12:53
--- NOTE | 2019-01-19 13:28 | Hematology/Onc Progress Note ---
Assessment/Plan Assessment/Plan Assessment and Recs: # Anemia of chronic disease due to underlying chronic medical issues, range has been 8-11, ferritin is 633, tibc is low --> No evidence of hemolysis is noted, peripheral smear has been reviewed. --> Epogen with HD 3x/wk --> Medications have been reviewed --> evaluate with Gi team prn --> transfuse if hgb is < 7 (will trend CBC daily) --> hgb trend 11.2-->10.9-->10.8-->10.7-->10.2-->9.7-->9.7-->8.5-->9-->9.2-->8.4 -->7.7-->8.8-->9.1-->8.6-->8.3-->8.9 --> s/p transfusion on 01/06 # Failure to thrive is likely related to poor overall status, poor functional status --> GT++ --> with multiple decub ulcerations that are noted, seen by id/surgery --> s/p trach as well --> cea is wnl # Acute non-occlusive dvt, right extremity ultrasound (acute non-occlusive DVT in internal jugular) --> currently is on eliquis 2.5mg po bid --> do not recommend a SVC filter --> given prior bleeding risk, hold off on heparin gtt --> vasc surgeon is aware, seek recs # Coagulopathy likely secondary to decreased Vitk dependent cofactors (high INR , PT) --> monitor closely for any evidence of bleeding. Currently is on eliquis --> VIT K on prn basis sq can be administered --> recently has improved inr 1.2-->1.1-->1.2-->1.1-->1.1 # Acute respiratory failure is now s/p trach to vent --> as per surgery recs # Ground glass opacities present on imaging of lung --> with pleural effusions, s/p drainage at this time --> no evidence for malignancy is noted --> as per pulm/id # Pleural effusion --> s/p thoracentesis, s/p paracentesis 12/31 --> no evidence of malignancy -->01/14 cxr: Interstitial edema, small left pleural effusion # Hyperkalemia --> kayxelate on prn basis per renal --> monitor K # Renal failure --> per renal recs, appreciated --> getting hd as per schedule # Altered level of consciousness --> currently as per baseline --> neuro eval prn # PAD off heparin gtt and now on eliquis --> per vasc and cards --> 12/22 s/p right leg angiogram with intervention --> on eliquis, continue # Gt tube cellulitis, on topical abx as per id around site The timing of this note does not necessarily reflect the time of the patient was seen. Greatly appreciate consultation! Subjective HEENT: Denies: no symptoms, eye pain, blurred vision, tearing, double vision, ear pain, ear discharge, nose pain, nose congestion, throat pain, throat swelling, mouth pain, mouth swelling, other Cardiovascular: Denies: no symptoms, chest pain, edema, irregular heart rate, lightheadedness, palpitations, syncope, other Respiratory: Denies: no symptoms, cough, shortness of breath, SOB with excertion, SOB at rest, sputum, wheezing, other Gastrointestinal/Abdominal: Denies: no symptoms, abdomen distended, abdominal pain, black stools, tarry stools, blood in stool, constipated, diarrhea, difficulty swallowing, nausea, poor appetite, poor fluid intake, rectal bleeding , vomiting, other Genitourinary: Denies: no symptoms, burning, discharge, frequency, flank pain, hematuria, incontinence, pain, urgency, other 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: Denies: no symptoms, anxiety, depressed, emotional problems, headache, numbness, paresthesia, pre-existing deficit, seizure, tingling, tremors, weakness, other Endocrine: Denies: no symptoms, excessive sweating, flushing, intolerance to cold, intolerance to heat, increased hunger, increased thirst, increased urine, unexplained weight gain, unexplained weight loss, other Hematologic/Lymphatic: Denies: no symptoms, anemia, easy bleeding, easy bruising, adenopathy, other Allergies: Coded Allergies: CEPHALEXIN (Unverified Allergy, Unknown, 02/24/14) SULFAMETHOXAZOLE (Unverified Allergy, Unknown, 02/24/14) TRIMETHOPRIM (Unverified Allergy, Unknown, 02/24/14) Subjective 11/30: comfortable, on abx, no complaints, on t-piece 12/01: to have hd done potentially tomorrow, is more alert/awake 12/02: no major bleeding, hgb remains approx 11, no changes 12/03: no events, breathing mildly better, hgb is improved 12/04: on vent/trach, no major changes, sr ekg 12/10: small amount of secretions, on trach/vent, no issues otherwise 12/11: no major issues, no complaints, labs reviewed, no sig changes 12/13: no events to report, no fevers or chills, awaiting placement 12/14: no changes, no major events to report, no fevers or chills 12/15: pending placement, getting gt feeds and hd as per renal 12/16: labs have been reviewed, cbc noted, no changes 12/17: no events, no fevers, no cp, hgb remains stable 12/18: restarted on heparin gtt, seen by pulcamelia, cards 12/20: continues to be on heparin gtt, no bleeding reported, no f/c 12/21: hd for today, no fevers or chils, off hep gtt on eliquis 12/22: to get hd tomorrow, today is s/p right leg angiogram with intervention 12/23: hgb remins stable, no fevers or chills reported 12/24: no events, no bleeding, vitals reviewed, cbc stable 12/25: no events, no bleeding, on vent, hgb 9 12/27: no changes, no f/c, no night swearts, seen with other providers 12/28: right extremity ultrasound (acute non-occlusive DVT in internal jugular, on eliquis 12/29: no events, no night sweats, seen by gi, no bleeding 12/30: cbc has been reviewed, no f/c, no night sweats reported 12/31: no events, eliquis is on hold cbc has been reviewed, bp elevated 01/01: no fevers or chills, cbc reviewed, hgb 9.3, getting HD 01/02: no events noted, getting norco for pain, hgb stable 01/04: not events to report, no bleeding, refusing ivl at this time, cbc reviewed 01/05: no fevers or chills noted, s/p trach/vent, no f/c, no chills noted 01/06: no events, to get 1 unit prbc today, renal seen, on abx 01/07: hd for tomorrow, seen by renal, no events, cbc reviewed 01/08: getting Hd today, seen by renal, no major events, in sr 01/10: no events to report, to get hd tomorrow, hgb stable 01/11: on vent/trach, gtube, tolerating treatment well, hd today 01/12: remains nonverbal, stable, on vent/trach, no fc 01/13: no events noted, cbc has been reviewed 01/14: thora and para fluid still neg for malignancy, no bleeding 01/15: Pt examined at bedside. No acute events. Pt refusing IV access per nursing per nursing team. 01/17: Pt is awake and alert. Pt in stable condition. Hgb trending down: 8.3 will continue to monitor 01/18: Pt complain of abdominal pain and DIAZ. Hgb trend 8.3-->8.9 01/19: no events, cbc has been reviewed, hgb is stable today Objective Objective Current Medications Medications (Trade) Dose Ordered Sig/Aleks Route PRN Reason Start Time Stop Time Status Last Admin Dose Admin Acetaminophen (Tylenol) 650 mg Q6H PRN GT Mild Pain/Temp > 100.5 12/21/18 16:00 01/20/19 15:59 01/18/19 07:58 Apixaban (Eliquis) 2.5 mg BID GT 01/01/19 21:00 01/31/19 20:59 01/19/19 09:04 Aspirin (ASA) 81 mg DAILY PEG 01/19/19 09:00 02/18/19 08:59 01/19/19 09:01 Atorvastatin Calcium (Lipitor) 10 mg BEDTIME GT 01/18/19 21:00 02/17/19 20:59 01/18/19 21:11 Carvedilol (Coreg) 3.125 mg EVERY 12 HOURS PEG 01/18/19 21:00 02/17/19 20:59 01/19/19 09:01 Clotrimazole (Lotrimin) 1 applic DAILY TOPIC 01/08/19 18:00 02/07/19 17:59 01/19/19 09:08 Collagenase (Santyl) 1 applic DAILY TOPIC 12/29/18 09:00 01/28/19 08:59 01/19/19 09:08 Dextrose (Dextrose 50%) 25 ml Q30M PRN IV Hypoglycemia 12/31/18 23:00 01/30/19 22:59 Dextrose (Dextrose 50%) 50 ml Q30M PRN IV Hypoglycemia 12/31/18 23:00 01/30/19 22:59 Docusate Sodium (Colace) 100 mg TWICE A DAY GT 01/18/19 18:00 02/17/19 17:59 01/19/19 09:01 Epoetin Vini (Epoetin Vini(ESRD on dialysis)) 10,000 unit SUBQ 01/06/19 21:00 02/05/19 20:59 01/18/19 21:11 Escitalopram Oxalate (Lexapro) 20 mg DAILY GT 01/05/19 09:00 02/04/19 08:59 01/19/19 09:03 Hydralazine HCl (Apresoline) 25 mg Q4H PRN GT bp over 160 syst 01/06/19 15:00 02/05/19 14:59 Ibuprofen (Advil) 400 mg TIDPRN PRN ORAL For Pain 01/18/19 11:30 02/17/19 11:29 01/18/19 14:22 Insulin Aspart (NovoLOG) EVERY 6 HOURS SUBQ 01/01/19 00:00 01/31/19 00:00 01/19/19 12:42 Lansoprazole (Prevacid) 30 mg DAILY GT 01/16/19 09:00 02/15/19 08:59 01/19/19 09:01 Loperamide HCl (Imodium) 2 mg Q6H PRN GT Diarrhea 01/07/19 11:00 02/06/19 10:59 01/16/19 04:24 Mirtazapine (Remeron) 15 mg BEDTIME GT 12/21/18 21:00 01/20/19 20:59 01/18/19 21:10 Tacrolimus (Prograf) 2 mg MoWeFr@0000,1200 ORAL 12/28/18 00:00 01/27/19 00:00 01/18/19 12:18 Tacrolimus (Prograf) 2 mg SuTuThSa@0900,2100 ORAL 12/26/18 21:00 01/25/19 20:59 01/19/19 09:08 Last 24 Hour Vital Signs Date Time Temp Pulse Resp B/P (MAP) Pulse Ox O2 Delivery O2 Flow Rate FiO2 01/19/19 12:30 86 33 40 01/19/19 12:00 Mechanical Ventilator 01/19/19 12:00 40 01/19/19 11:35 82 30 40 01/19/19 09:01 82 155/99 01/19/19 08:50 85 23 40 01/19/19 08:00 40 01/19/19 08:00 Mechanical Ventilator 01/19/19 08:00 89 01/19/19 08:00 98.1 82 22 155/99 (117) 100 01/19/19 07:59 90 29 40 01/19/19 07:25 100 01/19/19 07:25 85 33 40 01/19/19 05:52 83 23 40 01/19/19 04:00 40 01/19/19 04:00 97.5 80 22 152/80 (104) 100 01/19/19 04:00 Mechanical Ventilator 01/19/19 03:56 83 01/19/19 03:09 84 25 40 01/19/19 01:10 81 25 40 01/19/19 00:00 98.3 76 22 157/56 (89) 100 01/19/19 00:00 40 01/19/19 00:00 Mechanical Ventilator 01/18/19 23:28 86 27 40 01/18/19 23:23 82 01/18/19 21:28 84 29 40 01/18/19 21:10 85 163/81 01/18/19 20:00 97.6 85 28 163/81 (108) 100 01/18/19 20:00 40 01/18/19 19:38 82 29 40 01/18/19 19:35 85 01/18/19 19:00 Mechanical Ventilator 01/18/19 17:06 81 28 40 01/18/19 16:00 Mechanical Ventilator 01/18/19 16:00 84 01/18/19 16:00 98.0 82 32 99/70 (80) 99 01/18/19 16:00 40 01/18/19 15:24 85 21 40 01/18/19 12:00 98.0 79 30 143/99 (114) 99 01/18/19 12:00 Mechanical Ventilator 01/18/19 12:00 77 01/18/19 12:00 40 01/18/19 10:30 79 21 40 01/18/19 09:00 40 01/18/19 08:48 81 22 40 01/18/19 08:45 100 01/18/19 08:00 40 01/18/19 08:00 Mechanical Ventilator 01/18/19 08:00 97.2 81 27 153/75 (101) 100 01/18/19 08:00 83 01/18/19 07:42 77 20 40 01/18/19 04:45 82 23 40 01/18/19 04:00 Mechanical Ventilator 01/18/19 04:00 79 01/18/19 04:00 40 01/18/19 03:21 80 22 40 01/18/19 01:09 82 21 40 01/18/19 00:00 Mechanical Ventilator 01/18/19 00:00 98.0 79 20 111/59 (76) 100 01/18/19 00:00 77 01/18/19 00:00 40 01/17/19 23:05 83 20 40 01/17/19 21:15 88 24 40 01/17/19 20:00 Mechanical Ventilator 01/17/19 20:00 78 01/17/19 20:00 97.9 76 21 139/91 (107) 100 01/17/19 18:43 82 26 40 01/17/19 17:09 80 25 40 01/17/19 16:00 40 01/17/19 16:00 97.3 75 24 157/72 (100) 100 01/17/19 16:00 75 01/17/19 15:00 Mechanical Ventilator 01/17/19 15:00 79 24 40 01/17/19 13:30 40 Intake and Output 01/18/19 01/19/19 18:59 06:59 Intake Total 690 ml 660 ml Output Total 3000 ml 82976 ml Balance -2310 ml -79126 ml Free Water 150 ml 120 ml Tube Feeding 540 ml 540 ml Hemodialysis UF 3000 ml 92687 ml # Bowel Movements 3 Labs Test 01/18/19 03:20 01/19/19 03:50 White Blood Count 6.3 K/UL (4.8-10.8) 5.9 K/UL (4.8-10.8) Red Blood Count 3.54 M/UL (4.70-6.10) 3.58 M/UL (4.70-6.10) Hemoglobin 8.9 G/DL (14.2-18.0) 8.9 G/DL (14.2-18.0) Hematocrit 28.2 % (42.0-52.0) 28.8 % (42.0-52.0) Mean Corpuscular Volume 80 FL (80-99) 80 FL (80-99) Mean Corpuscular Hemoglobin 25.1 PG (27.0-31.0) 24.9 PG (27.0-31.0) Mean Corpuscular Hemoglobin Concent 31.5 G/DL (32.0-36.0) 31.0 G/DL (32.0-36.0) Red Cell Distribution Width 16.3 % (11.6-14.8) 16.9 % (11.6-14.8) Platelet Count 209 K/UL (150-450) 193 K/UL (150-450) Mean Platelet Volume 6.4 FL (6.5-10.1) 6.6 FL (6.5-10.1) Neutrophils (%) (Auto) 74.7 % (45.0-75.0) 69.2 % (45.0-75.0) Lymphocytes (%) (Auto) 15.3 % (20.0-45.0) 16.4 % (20.0-45.0) Monocytes (%) (Auto) 9.2 % (1.0-10.0) 11.7 % (1.0-10.0) Eosinophils (%) (Auto) 0.1 % (0.0-3.0) 0.1 % (0.0-3.0) Basophils (%) (Auto) 0.8 % (0.0-2.0) 2.8 % (0.0-2.0) Sodium Level 130 MMOL/L (136-145) 131 MMOL/L (136-145) Potassium Level 3.8 MMOL/L (3.5-5.1) 4.1 MMOL/L (3.5-5.1) Chloride Level 92 MMOL/L (98-107) 92 MMOL/L (98-107) Carbon Dioxide Level 31 MMOL/L (21-32) 27 MMOL/L (21-32) Anion Gap 7 mmol/L (5-15) 12 mmol/L (5-15) Blood Urea Nitrogen 68 mg/dL (7-18) 69 mg/dL (7-18) Creatinine 5.9 MG/DL (0.55-1.30) 6.0 MG/DL (0.55-1.30) Estimat Glomerular Filtration Rate 9.6 mL/min (>60) 9.4 mL/min (>60) Glucose Level 154 MG/DL (74-106) 138 MG/DL (74-106) Uric Acid 4.9 MG/DL (2.6-7.2) Calcium Level 9.1 MG/DL (8.5-10.1) 9.4 MG/DL (8.5-10.1) Phosphorus Level 3.9 MG/DL (2.5-4.9) Magnesium Level 2.1 MG/DL (1.8-2.4) Total Bilirubin 0.4 MG/DL (0.2-1.0) 0.3 MG/DL (0.2-1.0) Aspartate Amino Transf (AST/SGOT) 13 U/L (15-37) 19 U/L (15-37) Alanine Aminotransferase (ALT/SGPT) 12 U/L (12-78) 15 U/L (12-78) Alkaline Phosphatase 120 U/L (46-116) 117 U/L (46-116) Total Protein 6.5 G/DL (6.4-8.2) 6.6 G/DL (6.4-8.2) Albumin 2.0 G/DL (3.4-5.0) 2.0 G/DL (3.4-5.0) Globulin 4.5 g/dL 4.6 g/dL Albumin/Globulin Ratio 0.4 (1.0-2.7) 0.4 (1.0-2.7) Height (Feet): 5 Height (Inches): 4.00 Weight (Pounds): 220 Objective PE General Appearance: mild distress, moderate distress Lines, tubes and drains: peripheral HEENT: EOMI, ++ thrush, tonsils swollen ++trach Neck: normal inspection Respiratory/Chest: decreased breath sounds, accessory muscle use Cardiovascular/Chest: tachycardia Abdomen: soft, no organomegaly, no mass, ++ peg Extremities: other Skin Exam: warm/dry, rash Neurologic: alert, responsive Zacarias Khoury MD Jan 19, 2019 13:28
--- NOTE | 2019-01-19 13:33 | Infectious Diseases Prog Note ---
Assessment/Plan Problems: (1) Diarrhea Assessment & Plan: improved, with no infectious etiology so far , and negative stool for C diff toxin , and no pathogens on stool culture , use laxatives as needed , monitor clinically , encourage hydration (2) Foot ulcer Assessment & Plan: with MRSA grew out of it in the past, S/P vancomycin treatment with HD for two weeks, had vascular eval with revascularization to the right leg , S/P ulcer resection by clean room assembler . deep ulcer culture grew MRSA and E.coli with diphtheroids , possible colonization , with no evidence of active infection as per discussion with podiatry , no need to be started on antibiotics for now , will continue to monitor clinically and make recommendations as necessary . bone scan ruled out osteomyelitis of the heel before, couldn't do an MRI since on the vent . continue local wound care as per clean room assembler . (3) Thrush, oral Assessment & Plan: continue local nystatin as needed , S/P micafungin for three weeks empirically (4) HCV antibody positive Assessment & Plan: no evidence of active infection, with undetectable viral load , suspect due to previous infection , cleared, S/P liver transplant . (5) DM (diabetes mellitus) Assessment & Plan: recommend tight glycemic control to keep blood glucose between 100-140 (6) CHF (congestive heart failure) Assessment & Plan: on HD , renal is following, monitor daily weight , S/P multiple thoracentesis (7) Severe tongue swelling Assessment & Plan: improving , s/p tracheostomy to protect his airway since respiratory status worsened . now improving, pulmonary is following (8) Pleural effusion Assessment & Plan: recurrent on the right, with lung collapse , S/P thoracentesis X 3 now with removal of 2.3 liters of clear fluids on 12/31/18 . await fluids culture and gram stain, with PH and Glucose level . PREVIOUS culture were negative with negative cytology. pulmonary is following (9) Ascites Assessment & Plan: S/P paracentesis with removal of 4.1 liters of fluids, culture so far is negative Assessment/Plan will continue to monitor patient on daily basis and make recommendations as necessary since he is high risk for recurrent infection Subjective Constitutional: Reports: no symptoms HEENT: Reports: no symptoms Respiratory: Reports: no symptoms Breasts: Reports: no symptoms Cardiovascular: Reports: no symptoms Gastrointestinal/Abdominal: Reports: no symptoms Genitourinary: Reports: no symptoms Neurologic: Reports: no symptoms Psychiatric: Reports: no symptoms Skin: Reports: no symptoms Endocrine: Reports: no symptoms Hematologic: Reports: no symptoms Musculoskeletal: Reports: no symptoms Allergies: Coded Allergies: CEPHALEXIN (Unverified Allergy, Unknown, 02/24/14) SULFAMETHOXAZOLE (Unverified Allergy, Unknown, 02/24/14) TRIMETHOPRIM (Unverified Allergy, Unknown, 02/24/14) Subjective he was comfortable, lying in bed, awake and responsive, no fever or chills, no significant secretions from the trach , no SOB . has left heel with wound VAC in place, but no draining coming out . no diarrhea . Objective Vital Signs Last 24 Hour Vital Signs Date Time Temp Pulse Resp B/P (MAP) Pulse Ox O2 Delivery O2 Flow Rate FiO2 01/19/19 12:30 86 33 40 01/19/19 12:00 Mechanical Ventilator 01/19/19 12:00 40 01/19/19 11:35 82 30 40 01/19/19 09:01 82 155/99 01/19/19 08:50 85 23 40 01/19/19 08:00 40 01/19/19 08:00 Mechanical Ventilator 01/19/19 08:00 89 01/19/19 08:00 98.1 82 22 155/99 (117) 100 01/19/19 07:59 90 29 40 01/19/19 07:25 100 01/19/19 07:25 85 33 40 01/19/19 05:52 83 23 40 01/19/19 04:00 40 01/19/19 04:00 97.5 80 22 152/80 (104) 100 01/19/19 04:00 Mechanical Ventilator 01/19/19 03:56 83 01/19/19 03:09 84 25 40 01/19/19 01:10 81 25 40 01/19/19 00:00 98.3 76 22 157/56 (89) 100 01/19/19 00:00 40 01/19/19 00:00 Mechanical Ventilator 01/18/19 23:28 86 27 40 01/18/19 23:23 82 01/18/19 21:28 84 29 40 01/18/19 21:10 85 163/81 01/18/19 20:00 97.6 85 28 163/81 (108) 100 01/18/19 20:00 40 01/18/19 19:38 82 29 40 01/18/19 19:35 85 01/18/19 19:00 Mechanical Ventilator 01/18/19 17:06 81 28 40 01/18/19 16:00 Mechanical Ventilator 01/18/19 16:00 84 01/18/19 16:00 98.0 82 32 99/70 (80) 99 01/18/19 16:00 40 01/18/19 15:24 85 21 40 Height (Feet): 5 Height (Inches): 4.00 Weight (Pounds): 220 General Appearance: WD/WN, no acute distress HEENT: normocephalic, atraumatic, anicteric, mucous membranes moist Respiratory/Chest: chest wall non-tender, lungs clear, normal breath sounds, no respiratory distress, no accessory muscle use Cardiovascular: normal peripheral pulses, normal rate, regular rhythm, no gallop/murmur, no JVD Abdomen: normal bowel sounds, soft, non tender, no organomegaly, non distended , no mass, no scars Genitourinary: normal external genitalia Extremities: no cyanosis, no clubbing Skin: no rash, no lesions, no ulcers 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: billet cutter 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 normal, no motor/sensory deficits, abnormal gait, alert, oriented x 3, normal mood/affect Lymphatic: no neck adenopathy, no groin adenopathy Musculoskeletal: normal muscle bulk, no effusion Laboratory Tests Test 01/19/19 03:50 White Blood Count 5.9 K/UL (4.8-10.8) Red Blood Count 3.58 M/UL (4.70-6.10) L Hemoglobin 8.9 G/DL (14.2-18.0) L Hematocrit 28.8 % (42.0-52.0) L Mean Corpuscular Volume 80 FL (80-99) Mean Corpuscular Hemoglobin 24.9 PG (27.0-31.0) L Mean Corpuscular Hemoglobin Concent 31.0 G/DL (32.0-36.0) L Red Cell Distribution Width 16.9 % (11.6-14.8) H Platelet Count 193 K/UL (150-450) Mean Platelet Volume 6.6 FL (6.5-10.1) Neutrophils (%) (Auto) 69.2 % (45.0-75.0) Lymphocytes (%) (Auto) 16.4 % (20.0-45.0) L Monocytes (%) (Auto) 11.7 % (1.0-10.0) H Eosinophils (%) (Auto) 0.1 % (0.0-3.0) Basophils (%) (Auto) 2.8 % (0.0-2.0) H Sodium Level 131 MMOL/L (136-145) L Potassium Level 4.1 MMOL/L (3.5-5.1) Chloride Level 92 MMOL/L (98-107) L Carbon Dioxide Level 27 MMOL/L (21-32) Anion Gap 12 mmol/L (5-15) Blood Urea Nitrogen 69 mg/dL (7-18) H Creatinine 6.0 MG/DL (0.55-1.30) H Estimat Glomerular Filtration Rate 9.4 mL/min (>60) Glucose Level 138 MG/DL (74-106) H Calcium Level 9.4 MG/DL (8.5-10.1) Total Bilirubin 0.3 MG/DL (0.2-1.0) Aspartate Amino Transf (AST/SGOT) 19 U/L (15-37) Alanine Aminotransferase (ALT/SGPT) 15 U/L (12-78) Alkaline Phosphatase 117 U/L (46-116) H Total Protein 6.6 G/DL (6.4-8.2) Albumin 2.0 G/DL (3.4-5.0) L Globulin 4.6 g/dL Albumin/Globulin Ratio 0.4 (1.0-2.7) L Current Medications Medications (Trade) Dose Ordered Sig/Aleks Route PRN Reason Start Time Stop Time Status Last Admin Dose Admin Acetaminophen (Tylenol) 650 mg Q6H PRN GT Mild Pain/Temp > 100.5 12/21/18 16:00 01/20/19 15:59 01/18/19 07:58 Apixaban (Eliquis) 2.5 mg BID GT 01/01/19 21:00 01/31/19 20:59 01/19/19 09:04 Aspirin (ASA) 81 mg DAILY PEG 01/19/19 09:00 02/18/19 08:59 01/19/19 09:01 Atorvastatin Calcium (Lipitor) 10 mg BEDTIME GT 01/18/19 21:00 02/17/19 20:59 01/18/19 21:11 Carvedilol (Coreg) 3.125 mg EVERY 12 HOURS PEG 01/18/19 21:00 02/17/19 20:59 01/19/19 09:01 Clotrimazole (Lotrimin) 1 applic DAILY TOPIC 01/08/19 18:00 02/07/19 17:59 01/19/19 09:08 Collagenase (Santyl) 1 applic DAILY TOPIC 12/29/18 09:00 01/28/19 08:59 01/19/19 09:08 Dextrose (Dextrose 50%) 25 ml Q30M PRN IV Hypoglycemia 12/31/18 23:00 01/30/19 22:59 Dextrose (Dextrose 50%) 50 ml Q30M PRN IV Hypoglycemia 12/31/18 23:00 01/30/19 22:59 Docusate Sodium (Colace) 100 mg TWICE A DAY GT 01/18/19 18:00 02/17/19 17:59 01/19/19 09:01 Epoetin Vini (Epoetin Vini(ESRD on dialysis)) 10,000 unit FRI-FRI-FRI SUBQ 01/06/19 21:00 02/05/19 20:59 01/18/19 21:11 Escitalopram Oxalate (Lexapro) 20 mg DAILY GT 01/05/19 09:00 02/04/19 08:59 01/19/19 09:03 Hydralazine HCl (Apresoline) 25 mg Q4H PRN GT bp over 160 syst 01/06/19 15:00 02/05/19 14:59 Ibuprofen (Advil) 400 mg TIDPRN PRN ORAL For Pain 01/18/19 11:30 02/17/19 11:29 01/18/19 14:22 Insulin Aspart (NovoLOG) EVERY 6 HOURS SUBQ 01/01/19 00:00 01/31/19 00:00 01/19/19 12:42 Lansoprazole (Prevacid) 30 mg DAILY GT 01/16/19 09:00 02/15/19 08:59 01/19/19 09:01 Loperamide HCl (Imodium) 2 mg Q6H PRN GT Diarrhea 01/07/19 11:00 02/06/19 10:59 01/16/19 04:24 Mirtazapine (Remeron) 15 mg BEDTIME GT 12/21/18 21:00 01/20/19 20:59 01/18/19 21:10 Tacrolimus (Prograf) 2 mg MoWeFr@0000,1200 ORAL 12/28/18 00:00 01/27/19 00:00 01/18/19 12:18 Tacrolimus (Prograf) 2 mg SuTuThSa@0900,2100 ORAL 12/26/18 21:00 01/25/19 20:59 01/19/19 09:08 Francois Landis M.D. Jan 19, 2019 13:33
--- NOTE | 2019-01-19 15:37 | Pulmonology Progress Note ---
Assessment/Plan Assessment/Plan 1. Resp failure, hypercapnic 2. End-stage renal disease, on dialysis, status post multiple upper extremity vascular procedures. 3. Coronary artery bypass surgery. 4. Diabetes. 5. Dysphonia, tongue swelling, resolved; s/p trach 6. Trapped R lung with hydropneumothorax PLAN: tolerated 8 hrs on IMV/PSV CXR with trapped lung, improved disc w physicians continue to wean slowly Subjective Constitutional: Reports: no symptoms Allergies: Coded Allergies: CEPHALEXIN (Unverified Allergy, Unknown, 02/24/14) SULFAMETHOXAZOLE (Unverified Allergy, Unknown, 02/24/14) TRIMETHOPRIM (Unverified Allergy, Unknown, 02/24/14) Objective Last 24 Hour Vital Signs Date Time Temp Pulse Resp B/P (MAP) Pulse Ox O2 Delivery O2 Flow Rate FiO2 01/19/19 12:30 86 33 40 01/19/19 12:00 Mechanical Ventilator 01/19/19 12:00 40 01/19/19 12:00 97.4 87 26 155/95 (115) 99 01/19/19 11:35 82 30 40 01/19/19 09:01 82 155/99 01/19/19 08:50 85 23 40 01/19/19 08:00 40 01/19/19 08:00 Mechanical Ventilator 01/19/19 08:00 89 01/19/19 08:00 98.1 82 22 155/99 (117) 100 01/19/19 07:59 90 29 40 01/19/19 07:25 100 01/19/19 07:25 85 33 40 01/19/19 05:52 83 23 40 01/19/19 04:00 40 01/19/19 04:00 97.5 80 22 152/80 (104) 100 01/19/19 04:00 Mechanical Ventilator 01/19/19 03:56 83 01/19/19 03:09 84 25 40 01/19/19 01:10 81 25 40 01/19/19 00:00 98.3 76 22 157/56 (89) 100 01/19/19 00:00 40 01/19/19 00:00 Mechanical Ventilator 01/18/19 23:28 86 27 40 01/18/19 23:23 82 01/18/19 21:28 84 29 40 01/18/19 21:10 85 163/81 01/18/19 20:00 97.6 85 28 163/81 (108) 100 01/18/19 20:00 40 01/18/19 19:38 82 29 40 01/18/19 19:35 85 01/18/19 19:00 Mechanical Ventilator 01/18/19 17:06 81 28 40 01/18/19 16:00 Mechanical Ventilator 01/18/19 16:00 84 01/18/19 16:00 98.0 82 32 99/70 (80) 99 01/18/19 16:00 40 Intake and Output 01/18/19 01/19/19 18:59 06:59 Intake Total 690 ml 660 ml Output Total 3000 ml 21391 ml Balance -2310 ml -88743 ml Free Water 150 ml 120 ml Tube Feeding 540 ml 540 ml Hemodialysis UF 3000 ml 88742 ml # Bowel Movements 3 Objective trach on vent General Appearance: no acute distress HEENT: atraumatic Respiratory/Chest: lungs clear, decreased breath sounds Cardiovascular: normal rate Laboratory Tests 01/19/19 03:50: White Blood Count 5.9, Red Blood Count 3.58L, Hemoglobin 8.9L, Hematocrit 28.8L , Mean Corpuscular Volume 80, Mean Corpuscular Hemoglobin 24.9L, Mean Corpuscular Hemoglobin Concent 31.0L, Red Cell Distribution Width 16.9H, Platelet Count 193, Mean Platelet Volume 6.6, Neutrophils (%) (Auto) 69.2, Lymphocytes (%) (Auto) 16.4L, Monocytes (%) (Auto) 11.7H, Eosinophils (%) (Auto ) 0.1, Basophils (%) (Auto) 2.8H, Sodium Level 131L, Potassium Level 4.1, Chloride Level 92L, Carbon Dioxide Level 27, Anion Gap 12, Blood Urea Nitrogen 69H, Creatinine 6.0H, Estimat Glomerular Filtration Rate 9.4, Glucose Level 138H , Calcium Level 9.4, Total Bilirubin 0.3, Aspartate Amino Transf (AST/SGOT) 19, Alanine Aminotransferase (ALT/SGPT) 15, Alkaline Phosphatase 117H, Total Protein 6.6, Albumin 2.0L, Globulin 4.6, Albumin/Globulin Ratio 0.4L Current Medications Medications (Trade) Dose Ordered Sig/Aleks Route PRN Reason Start Time Stop Time Status Last Admin Dose Admin Acetaminophen (Tylenol) 650 mg Q6H PRN GT Mild Pain/Temp > 100.5 12/21/18 16:00 01/20/19 15:59 01/18/19 07:58 Apixaban (Eliquis) 2.5 mg BID GT 01/01/19 21:00 01/31/19 20:59 01/19/19 09:04 Aspirin (ASA) 81 mg DAILY PEG 01/19/19 09:00 02/18/19 08:59 01/19/19 09:01 Atorvastatin Calcium (Lipitor) 10 mg BEDTIME GT 01/18/19 21:00 02/17/19 20:59 01/18/19 21:11 Carvedilol (Coreg) 3.125 mg EVERY 12 HOURS PEG 01/18/19 21:00 02/17/19 20:59 01/19/19 09:01 Clotrimazole (Lotrimin) 1 applic DAILY TOPIC 01/08/19 18:00 02/07/19 17:59 01/19/19 09:08 Collagenase (Santyl) 1 applic DAILY TOPIC 12/29/18 09:00 01/28/19 08:59 01/19/19 09:08 Dextrose (Dextrose 50%) 25 ml Q30M PRN IV Hypoglycemia 12/31/18 23:00 01/30/19 22:59 Dextrose (Dextrose 50%) 50 ml Q30M PRN IV Hypoglycemia 12/31/18 23:00 01/30/19 22:59 Docusate Sodium (Colace) 100 mg TWICE A DAY GT 01/18/19 18:00 02/17/19 17:59 01/19/19 09:01 Epoetin Vini (Epoetin Vini(ESRD on dialysis)) 10,000 unit FRI-FRI-FRI SUBQ 01/06/19 21:00 02/05/19 20:59 01/18/19 21:11 Escitalopram Oxalate (Lexapro) 20 mg DAILY GT 01/05/19 09:00 02/04/19 08:59 01/19/19 09:03 Hydralazine HCl (Apresoline) 25 mg Q4H PRN GT bp over 160 syst 01/06/19 15:00 02/05/19 14:59 Ibuprofen (Advil) 400 mg TIDPRN PRN ORAL For Pain 01/18/19 11:30 02/17/19 11:29 01/18/19 14:22 Insulin Aspart (NovoLOG) EVERY 6 HOURS SUBQ 01/01/19 00:00 01/31/19 00:00 01/19/19 12:42 Lansoprazole (Prevacid) 30 mg DAILY GT 01/16/19 09:00 02/15/19 08:59 01/19/19 09:01 Loperamide HCl (Imodium) 2 mg Q6H PRN GT Diarrhea 01/07/19 11:00 02/06/19 10:59 01/16/19 04:24 Mirtazapine (Remeron) 15 mg BEDTIME GT 12/21/18 21:00 01/20/19 20:59 01/18/19 21:10 Tacrolimus (Prograf) 2 mg MoWeFr@0000,1200 ORAL 12/28/18 00:00 01/27/19 00:00 01/18/19 12:18 Tacrolimus (Prograf) 2 mg SuTuThSa@0900,2100 ORAL 12/26/18 21:00 01/25/19 20:59 01/19/19 09:08 Saroj Mendoza MD Jan 19, 2019 15:37
[2019-01-19 16:00] VITALS: BP 152/74
[2019-01-19] MEDS: Acetaminophen 650mg/20.3ml GT PRN (18:31)
--- NOTE | 2019-01-19 18:50 | Neurology Progress Note ---
Interim History Interim History Interim History Mr. Restrepo feels well. His headache has resolved. He is being weaned off the ventilator and is comfortable. He continues to be more alert. His mood is fair. He is in fair spirits. The right heel is less painful - and is healing well. The right upper extremity is less swollen and less painful. He has been able to sleep better. He is still artificially ventilated. He feels that his strength is stable. The mind is clearer. He is eager to eat. He denies any new neurological symptoms. He is still worried about his hearing. Review of Systems Neuro Review of Systems Benign. Objective Physical Exam Last Vital Signs Date Time Temp Pulse Resp B/P (MAP) Pulse Ox O2 Delivery O2 Flow Rate FiO2 01/19/19 16:49 84 31 40 01/19/19 16:00 Mechanical Ventilator 01/19/19 16:00 98.3 152/74 (100) 99 Laboratory Tests Test 01/19/19 03:50 White Blood Count 5.9 K/UL (4.8-10.8) Red Blood Count 3.58 M/UL (4.70-6.10) L Hemoglobin 8.9 G/DL (14.2-18.0) L Hematocrit 28.8 % (42.0-52.0) L Mean Corpuscular Volume 80 FL (80-99) Mean Corpuscular Hemoglobin 24.9 PG (27.0-31.0) L Mean Corpuscular Hemoglobin Concent 31.0 G/DL (32.0-36.0) L Red Cell Distribution Width 16.9 % (11.6-14.8) H Platelet Count 193 K/UL (150-450) Mean Platelet Volume 6.6 FL (6.5-10.1) Neutrophils (%) (Auto) 69.2 % (45.0-75.0) Lymphocytes (%) (Auto) 16.4 % (20.0-45.0) L Monocytes (%) (Auto) 11.7 % (1.0-10.0) H Eosinophils (%) (Auto) 0.1 % (0.0-3.0) Basophils (%) (Auto) 2.8 % (0.0-2.0) H Sodium Level 131 MMOL/L (136-145) L Potassium Level 4.1 MMOL/L (3.5-5.1) Chloride Level 92 MMOL/L (98-107) L Carbon Dioxide Level 27 MMOL/L (21-32) Anion Gap 12 mmol/L (5-15) Blood Urea Nitrogen 69 mg/dL (7-18) H Creatinine 6.0 MG/DL (0.55-1.30) H Estimat Glomerular Filtration Rate 9.4 mL/min (>60) Glucose Level 138 MG/DL (74-106) H Calcium Level 9.4 MG/DL (8.5-10.1) Total Bilirubin 0.3 MG/DL (0.2-1.0) Aspartate Amino Transf (AST/SGOT) 19 U/L (15-37) Alanine Aminotransferase (ALT/SGPT) 15 U/L (12-78) Alkaline Phosphatase 117 U/L (46-116) H Total Protein 6.6 G/DL (6.4-8.2) Albumin 2.0 G/DL (3.4-5.0) L Globulin 4.6 g/dL Albumin/Globulin Ratio 0.4 (1.0-2.7) L Neurologic Exam Objective PHYSICAL EXAMINATION: GENERAL: He is a well-developed and well-nourished, pleasant gentleman, lying in bed, connected to a ventilator via a tracheostomy. HEAD: Normocephalic and atraumatic. EENT: Examination benign. NECK: No neck rigidity was observed. He did have a tracheostomy. NEUROLOGICAL EXAMINATION: MENTAL STATUS EXAMINATION: He was awake and alert. He was oriented to person, place and time. He was able to recall 3/3 words immediately and was able to remember them in 1 and 3 minutes. He was able to remember presidents Trump through Mak Keny. His mathematical skills were fair. His visuospatial function was preserved. SPEECH: Could not be tested, but he was able to mouth words relatively well. LANGUAGE: He was able to comprehend and express himself relatively well. CRANIAL NERVES EXAMINATION: II: The visual mckeon were intact to confrontation testing. III, IV & : The external ocular movements were full and the pupils 3 mm in diameter, equal, round, regular, and reactive sluggishly to light. V: He had normal facial sensations, and the temporales, masseters, and pterygoids functioned normally. VII: He had normal facial expressions and no facial asymmetry. VIII: Hearing was decreased bilaterally with worse hearing on the left side compared to the right. IX: The palate moved symmetrically on phonation. X: Could not be tested. XI: The sternocleidomastoids and trapezii functioned normally. XII: The tongue was in the midline without any fasciculations or atrophy. MOTOR SYSTEM: The tone was normal in all four extremities. Examination of muscle mass revealed generalized muscle wasting. Examination of power revealed G 5/5 power except for G 4+/5 power in the iliopsoas muscles bilaterally, and G 4/5 in the right ankle and toes. Power in the right upper extremity was limited by pain. Power in the right foot was also limited by pain. SENSORY EXAMINATION: He had intact sensations to light touch. Other sensory modalities could not be tested adequately. REFLEXES: 1+ and bilaterally symmetrical at the biceps, triceps, brachioradialis , and knees, 0 at both ankles. The plantar responses were flexor bilaterally. COORDINATION: He performed well on [id number] testing. STANCE & GAIT: Were deferred. Impression/Recommendations Diagnostic Impression 1. Mr. Gregg Restrepo is a 69-year-old, right-handed, gentleman with past history of multiple medical problems including hypertension, diabetes mellitus, end-stage renal disease for which he is hemodialysis dependent, prior episodes of sepsis, and prior episodes of encephalopathy, who was admitted to [facility] on October 31, 2018. Following that, he has had a stormy hospital course including pneumonia and sepsis, right foot infection, respiratory failure for which he has needed tracheostomy and in addition he has exhibited an alteration in his mental state with some waxing and waning of his mental state. 2. He feels well. His headache has resolved. He is being weaned off the ventilator and is comfortable. He continues to be more alert. His mood is fair. He is in fair spirits. The right heel is less painful - and is healing well. The right upper extremity is less swollen and less painful. He has been able to sleep better. He is still artificially ventilated. He feels that his strength is stable. The mind is clearer. He is eager to eat. He denies any new neurological symptoms. He is still worried about his hearing. 3. On neurological examination, at this time, he is fully oriented, his recent memory is normal. He has minimally impaired higher cognitive function. He is able to comprehend and express himself well. He does have mild G 4+/5 weakness in the iliopsoas muscles bilaterally. Power in the right upper extremity was limited by pain. Power in the right foot was also limited by pain. He had globally diminished deep tendon reflexes with loss of ankle jerks, but no definite focal or lateralizing neurological findings. 4. His latest laboratory data on my initial evaluation revealed that he was anemic with a hemoglobin of 10.8 G. His last blood gas performed on 11/14/2018 revealed that he had a pCO2 elevated at 56.4 with a normal pO2 of 88.3 and normal pH of 7.37. His latest chemistry panel revealed that he was mildly hyponatremic with a sodium of 130, and had a chloride of 90. The BUN was elevated at 75, creatinine elevated at 7.4, glucose elevated at 156, Hemoglobin A1c elevated at 6.9%, Alkaline phosphatase elevated at 131, and ProBNP greater than 35,000. His last B12 level on 11/07/2018 was 723. His last folate on was 18.6. His last TSH on 12/06/2018 was 4.82, which is minimally elevated. 5. The CT scan of the brain performed on 11/10/2018 was benign for acute intracranial pathology. 6. The EEG done on 12/08/18 revealed left temporal dysfunction. 7. The patient's history and neurological examination are most consistent with mild multifactorial encephalopathy, which apparently waxes and wanes, but no definite focal neurological dysfunction. His encephalopathy is stable. 8. He tells me that he had a brain bleed many years ago. I did review his imaging done at [facility] a few years ago and he had closed head injuries with subarachnoid and subdural blood in the past. 9. His mood has improved. 10. There has never been a doubt regarding his ability to make decisions regarding his medical care. 11. He is eager to eat again and is worried about his hearing. 12. His muscle contraction headache has resolved. Recommendations 1. Continue present management. 2. Continue to correct the patient's toxic metabolic imbalances. 3. Mobilize with PT/OT. 4. Consider getting swallowing evaluation so that he can be fed for enjoyment. 5. Consider ENT evaluation for hearing loss. 6. Ibuprofen 400 mg q 8 hours PRN DIAZ. 7. Observe. Pantera Cool M.D., M.S.P.H. Pantera Cool MD Jan 19, 2019 18:50
--- NOTE | 2019-01-19 19:15 | Progress Note ---
DATE: 01/19/2019 SUBJECTIVE: The patient is doing better, gradually improving. Son was at the bedside. The patient is more hopeful, gradually is improving. Sleep is better, less depressive, anxious at times, participating in weaning off process. MENTAL STATUS EXAMINATION: The patient is still intubated. The patient is not talking. Alert and oriented x4. Mood is dysphoric. Affect is constricted. Congruent with mood. Thought process is concrete. Thought content, no suicidal or homicidal ideation. ASSESSMENT: 1. Major depressive disorder. 2. Anxiety disorder. PLAN: 1. We will continue current medications 2. Provide the patient with reality orientation and supportive therapy. Jeffrey Lala M.D. DR: Dianne JOB#: [id number] CC:
[2019-01-19 20:00] VITALS: BP 113/49
[2019-01-20] VITALS: BP 108/62
[2019-01-20] MEDS: NovoLOG Insulin Flexpen SUBQ SCH ×4 (05:54→23:59)
[2019-01-20 08:00] VITALS: BP 95/47
--- NOTE | 2019-01-20 08:41 | Hematology/Onc Progress Note ---
Assessment/Plan Assessment/Plan Assessment and Recs: # Anemia of chronic disease due to underlying chronic medical issues, range has been 8-11, ferritin is 633, tibc is low --> No evidence of hemolysis is noted, peripheral smear has been reviewed. --> Epogen with HD 3x/wk --> Medications have been reviewed --> evaluate with Gi team prn --> transfuse if hgb is < 7 (will trend CBC daily) --> hgb trend 11.2-->10.9-->10.8-->10.7-->10.2-->9.7-->9.7-->8.5-->9-->9.2-->8.4 -->7.7-->8.8-->9.1-->8.6-->8.3-->8.9 --> s/p transfusion on 01/06 # Failure to thrive is likely related to poor overall status, poor functional status --> GT++ --> with multiple decub ulcerations that are noted, seen by id/surgery --> s/p trach as well --> cea is wnl # Acute non-occlusive dvt, right extremity ultrasound (acute non-occlusive DVT in internal jugular) --> currently is on eliquis 2.5mg po bid --> do not recommend a SVC filter --> given prior bleeding risk, hold off on heparin gtt --> vasc surgeon is aware, seek recs # Coagulopathy likely secondary to decreased Vitk dependent cofactors (high INR , PT) --> monitor closely for any evidence of bleeding. Currently is on eliquis --> VIT K on prn basis sq can be administered --> recently has improved inr 1.2-->1.1-->1.2-->1.1-->1.1 # Acute respiratory failure is now s/p trach to vent --> as per surgery recs # Ground glass opacities present on imaging of lung --> with pleural effusions, s/p drainage at this time --> no evidence for malignancy is noted --> as per pulm/id # Pleural effusion --> s/p thoracentesis, s/p paracentesis 12/31 --> no evidence of malignancy -->01/14 cxr: Interstitial edema, small left pleural effusion # Hyperkalemia --> kayxelate on prn basis per renal --> monitor K # Renal failure --> per renal recs, appreciated --> getting hd as per schedule # Altered level of consciousness --> currently as per baseline --> neuro eval prn # PAD off heparin gtt and now on eliquis --> per vasc and cards --> 12/22 s/p right leg angiogram with intervention --> on eliquis, continue # Gt tube cellulitis, on topical abx as per id around site The timing of this note does not necessarily reflect the time of the patient was seen. Greatly appreciate consultation! Subjective Hematologic/Lymphatic: Reports: anemia Allergies: Coded Allergies: CEPHALEXIN (Unverified Allergy, Unknown, 02/24/14) SULFAMETHOXAZOLE (Unverified Allergy, Unknown, 02/24/14) TRIMETHOPRIM (Unverified Allergy, Unknown, 02/24/14) All Systems: reviewed and negative except above Subjective 11/30: comfortable, on abx, no complaints, on t-piece 12/01: to have hd done potentially tomorrow, is more alert/awake 12/02: no major bleeding, hgb remains approx 11, no changes 12/03: no events, breathing mildly better, hgb is improved 12/04: on vent/trach, no major changes, sr ekg 12/10: small amount of secretions, on trach/vent, no issues otherwise 12/11: no major issues, no complaints, labs reviewed, no sig changes 12/13: no events to report, no fevers or chills, awaiting placement 12/14: no changes, no major events to report, no fevers or chills 12/15: pending placement, getting gt feeds and hd as per renal 12/16: labs have been reviewed, cbc noted, no changes 12/17: no events, no fevers, no cp, hgb remains stable 12/18: restarted on heparin gtt, seen by pulcamelia, cards 12/20: continues to be on heparin gtt, no bleeding reported, no f/c 12/21: hd for today, no fevers or chils, off hep gtt on eliquis 12/22: to get hd tomorrow, today is s/p right leg angiogram with intervention 12/23: hgb remins stable, no fevers or chills reported 12/24: no events, no bleeding, vitals reviewed, cbc stable 12/25: no events, no bleeding, on vent, hgb 9 12/27: no changes, no f/c, no night swearts, seen with other providers 12/28: right extremity ultrasound (acute non-occlusive DVT in internal jugular, on eliquis 12/29: no events, no night sweats, seen by gi, no bleeding 12/30: cbc has been reviewed, no f/c, no night sweats reported 12/31: no events, eliquis is on hold cbc has been reviewed, bp elevated 01/01: no fevers or chills, cbc reviewed, hgb 9.3, getting HD 01/02: no events noted, getting norco for pain, hgb stable 01/04: not events to report, no bleeding, refusing ivl at this time, cbc reviewed 01/05: no fevers or chills noted, s/p trach/vent, no f/c, no chills noted 01/06: no events, to get 1 unit prbc today, renal seen, on abx 01/07: hd for tomorrow, seen by renal, no events, cbc reviewed 01/08: getting Hd today, seen by renal, no major events, in sr 01/10: no events to report, to get hd tomorrow, hgb stable 01/11: on vent/trach, gtube, tolerating treatment well, hd today 01/12: remains nonverbal, stable, on vent/trach, no fc 01/13: no events noted, cbc has been reviewed 01/14: thora and para fluid still neg for malignancy, no bleeding 01/15: Pt examined at bedside. No acute events. Pt refusing IV access per nursing per nursing team. 01/17: Pt is awake and alert. Pt in stable condition. Hgb trending down: 8.3 will continue to monitor 01/18: Pt complain of abdominal pain and DIAZ. Hgb trend 8.3-->8.9 01/19: no events, cbc has been reviewed, hgb is stable today 01/20: Awake and alert, able to follow commands. Remains on vent. Objective Objective Current Medications Medications (Trade) Dose Ordered Sig/Aleks Route PRN Reason Start Time Stop Time Status Last Admin Dose Admin Acetaminophen (Tylenol) 650 mg Q6H PRN GT Mild Pain/Temp > 100.5 12/21/18 16:00 01/20/19 15:59 01/19/19 18:31 Apixaban (Eliquis) 2.5 mg BID GT 01/01/19 21:00 01/31/19 20:59 01/19/19 17:17 Aspirin (ASA) 81 mg DAILY PEG 01/19/19 09:00 02/18/19 08:59 01/19/19 09:01 Atorvastatin Calcium (Lipitor) 10 mg BEDTIME GT 01/18/19 21:00 02/17/19 20:59 01/19/19 20:25 Carvedilol (Coreg) 3.125 mg EVERY 12 HOURS PEG 01/18/19 21:00 02/17/19 20:59 01/19/19 20:25 Clotrimazole (Lotrimin) 1 applic DAILY TOPIC 01/08/19 18:00 02/07/19 17:59 01/19/19 09:08 Collagenase (Santyl) 1 applic DAILY TOPIC 12/29/18 09:00 01/28/19 08:59 01/19/19 09:08 Dextrose (Dextrose 50%) 25 ml Q30M PRN IV Hypoglycemia 12/31/18 23:00 01/30/19 22:59 Dextrose (Dextrose 50%) 50 ml Q30M PRN IV Hypoglycemia 12/31/18 23:00 01/30/19 22:59 Docusate Sodium (Colace) 100 mg TWICE A DAY GT 01/18/19 18:00 02/17/19 17:59 01/19/19 17:16 Epoetin Vini (Epoetin Vini(ESRD on dialysis)) 10,000 unit FRI-FRI-FRI SUBQ 01/06/19 21:00 02/05/19 20:59 01/18/19 21:11 Escitalopram Oxalate (Lexapro) 20 mg DAILY GT 01/05/19 09:00 02/04/19 08:59 01/19/19 09:03 Hydralazine HCl (Apresoline) 25 mg Q4H PRN GT bp over 160 syst 01/06/19 15:00 02/05/19 14:59 Ibuprofen (Advil) 400 mg TIDPRN PRN ORAL For Pain 01/18/19 11:30 02/17/19 11:29 01/18/19 14:22 Insulin Aspart (NovoLOG) EVERY 6 HOURS SUBQ 01/01/19 00:00 01/31/19 00:00 01/20/19 05:54 Lansoprazole (Prevacid) 30 mg DAILY GT 01/16/19 09:00 02/15/19 08:59 01/19/19 09:01 Loperamide HCl (Imodium) 2 mg Q6H PRN GT Diarrhea 01/07/19 11:00 02/06/19 10:59 01/16/19 04:24 Mirtazapine (Remeron) 15 mg BEDTIME GT 12/21/18 21:00 01/20/19 20:59 01/19/19 20:25 Tacrolimus (Prograf) 2 mg MoWeFr@0000,1200 ORAL 12/28/18 00:00 01/27/19 00:00 01/19/19 23:12 Tacrolimus (Prograf) 2 mg SuTuThSa@0900,2100 ORAL 12/26/18 21:00 01/25/19 20:59 01/19/19 20:25 Last 24 Hour Vital Signs Date Time Temp Pulse Resp B/P (MAP) Pulse Ox O2 Delivery O2 Flow Rate FiO2 01/20/19 07:23 80 28 40 01/20/19 05:28 77 26 40 01/20/19 04:00 Mechanical Ventilator 01/20/19 04:00 40 01/20/19 04:00 98.1 75 26 100 01/20/19 03:49 74 01/20/19 03:20 75 26 40 01/20/19 00:59 72 28 40 01/20/19 00:00 Mechanical Ventilator 01/20/19 00:00 98.4 74 28 108/62 (77) 99 01/19/19 23:41 69 01/19/19 23:32 78 26 40 01/19/19 20:56 81 28 40 01/19/19 20:25 86 113/49 01/19/19 20:00 97.5 86 30 113/49 (70) 100 01/19/19 20:00 Mechanical Ventilator 01/19/19 20:00 40 01/19/19 20:00 87 01/19/19 18:55 88 38 40 01/19/19 16:49 84 31 40 01/19/19 16:00 Mechanical Ventilator 01/19/19 16:00 98.3 83 37 152/74 (100) 99 01/19/19 16:00 40 01/19/19 16:00 89 01/19/19 14:50 85 32 40 01/19/19 12:30 86 33 40 01/19/19 12:00 Mechanical Ventilator 01/19/19 12:00 82 01/19/19 12:00 40 01/19/19 12:00 97.4 87 26 155/95 (115) 99 01/19/19 11:35 82 30 40 01/19/19 09:01 82 155/99 01/19/19 08:50 85 23 40 01/19/19 08:00 40 01/19/19 08:00 Mechanical Ventilator 01/19/19 08:00 89 01/19/19 08:00 98.1 82 22 155/99 (117) 100 01/19/19 07:59 90 29 40 01/19/19 07:25 100 01/19/19 07:25 85 33 40 01/19/19 05:52 83 23 40 01/19/19 04:00 40 01/19/19 04:00 97.5 80 22 152/80 (104) 100 01/19/19 04:00 Mechanical Ventilator 01/19/19 03:56 83 01/19/19 03:09 84 25 40 01/19/19 01:10 81 25 40 01/19/19 00:00 98.3 76 22 157/56 (89) 100 01/19/19 00:00 40 01/19/19 00:00 Mechanical Ventilator 01/18/19 23:28 86 27 40 01/18/19 23:23 82 01/18/19 21:28 84 29 40 01/18/19 21:10 85 163/81 01/18/19 20:00 97.6 85 28 163/81 (108) 100 01/18/19 20:00 40 01/18/19 19:38 82 29 40 01/18/19 19:35 85 01/18/19 19:00 Mechanical Ventilator 01/18/19 17:06 81 28 40 01/18/19 16:00 Mechanical Ventilator 01/18/19 16:00 84 01/18/19 16:00 98.0 82 32 99/70 (80) 99 01/18/19 16:00 40 01/18/19 15:24 85 21 40 01/18/19 12:00 98.0 79 30 143/99 (114) 99 01/18/19 12:00 Mechanical Ventilator 01/18/19 12:00 77 01/18/19 12:00 40 01/18/19 10:30 79 21 40 01/18/19 09:00 40 01/18/19 08:48 81 22 40 01/18/19 08:45 100 Intake and Output 01/19/19 01/20/19 19:00 07:00 Intake Total 670 ml 735 ml Output Total 3000 ml Balance -2330 ml 735 ml Free Water 130 ml 240 ml Tube Feeding 540 ml 495 ml Hemodialysis UF 3000 ml # Bowel Movements 2 Labs Test 01/18/19 03:20 01/19/19 03:50 White Blood Count 6.3 K/UL (4.8-10.8) 5.9 K/UL (4.8-10.8) Red Blood Count 3.54 M/UL (4.70-6.10) 3.58 M/UL (4.70-6.10) Hemoglobin 8.9 G/DL (14.2-18.0) 8.9 G/DL (14.2-18.0) Hematocrit 28.2 % (42.0-52.0) 28.8 % (42.0-52.0) Mean Corpuscular Volume 80 FL (80-99) 80 FL (80-99) Mean Corpuscular Hemoglobin 25.1 PG (27.0-31.0) 24.9 PG (27.0-31.0) Mean Corpuscular Hemoglobin Concent 31.5 G/DL (32.0-36.0) 31.0 G/DL (32.0-36.0) Red Cell Distribution Width 16.3 % (11.6-14.8) 16.9 % (11.6-14.8) Platelet Count 209 K/UL (150-450) 193 K/UL (150-450) Mean Platelet Volume 6.4 FL (6.5-10.1) 6.6 FL (6.5-10.1) Neutrophils (%) (Auto) 74.7 % (45.0-75.0) 69.2 % (45.0-75.0) Lymphocytes (%) (Auto) 15.3 % (20.0-45.0) 16.4 % (20.0-45.0) Monocytes (%) (Auto) 9.2 % (1.0-10.0) 11.7 % (1.0-10.0) Eosinophils (%) (Auto) 0.1 % (0.0-3.0) 0.1 % (0.0-3.0) Basophils (%) (Auto) 0.8 % (0.0-2.0) 2.8 % (0.0-2.0) Sodium Level 130 MMOL/L (136-145) 131 MMOL/L (136-145) Potassium Level 3.8 MMOL/L (3.5-5.1) 4.1 MMOL/L (3.5-5.1) Chloride Level 92 MMOL/L (98-107) 92 MMOL/L (98-107) Carbon Dioxide Level 31 MMOL/L (21-32) 27 MMOL/L (21-32) Anion Gap 7 mmol/L (5-15) 12 mmol/L (5-15) Blood Urea Nitrogen 68 mg/dL (7-18) 69 mg/dL (7-18) Creatinine 5.9 MG/DL (0.55-1.30) 6.0 MG/DL (0.55-1.30) Estimat Glomerular Filtration Rate 9.6 mL/min (>60) 9.4 mL/min (>60) Glucose Level 154 MG/DL (74-106) 138 MG/DL (74-106) Uric Acid 4.9 MG/DL (2.6-7.2) Calcium Level 9.1 MG/DL (8.5-10.1) 9.4 MG/DL (8.5-10.1) Phosphorus Level 3.9 MG/DL (2.5-4.9) Magnesium Level 2.1 MG/DL (1.8-2.4) Total Bilirubin 0.4 MG/DL (0.2-1.0) 0.3 MG/DL (0.2-1.0) Aspartate Amino Transf (AST/SGOT) 13 U/L (15-37) 19 U/L (15-37) Alanine Aminotransferase (ALT/SGPT) 12 U/L (12-78) 15 U/L (12-78) Alkaline Phosphatase 120 U/L (46-116) 117 U/L (46-116) Total Protein 6.5 G/DL (6.4-8.2) 6.6 G/DL (6.4-8.2) Albumin 2.0 G/DL (3.4-5.0) 2.0 G/DL (3.4-5.0) Globulin 4.5 g/dL 4.6 g/dL Albumin/Globulin Ratio 0.4 (1.0-2.7) 0.4 (1.0-2.7) Height (Feet): 5 Height (Inches): 4.00 Weight (Pounds): 220 Objective PE General Appearance: mild distress, moderate distress Lines, tubes and drains: peripheral HEENT: EOMI, ++ thrush, tonsils swollen ++trach Neck: normal inspection Respiratory/Chest: decreased breath sounds, accessory muscle use. VENT++ Cardiovascular/Chest: tachycardia Abdomen: soft, no organomegaly, no mass, ++ peg Extremities: other Skin Exam: warm/dry, rash Neurologic: alert, responsive Zacarias Khoury MD Jan 20, 2019 08:41
[2019-01-20] MEDS: Aspirin Baby 81mg PEG SCH (08:54)
[2019-01-20] MEDS: Docusate 100mg/10ml Liq GT SCH ×2 (08:55→17:29)
[2019-01-20] MEDS: Eliquis 2.5mg tablet GT SCH ×2 (08:56→17:29)
--- NOTE | 2019-01-20 09:35 | GI Progress Note ---
Assessment/Plan Problems: (1) Foot ulcer ICD Codes: L97.509 - Non-pressure chronic ulcer of other part of unspecified foot with unspecified severity SNOMED: 00242768 Qualifiers: Qualified Codes: L97.511 - Non-pressure chronic ulcer of other part of right foot limited to breakdown of skin (2) DM (diabetes mellitus) ICD Codes: E11.9 - Type 2 diabetes mellitus without complications SNOMED: 12348524 (3) Transplant ICD Codes: Z94.9 - Transplanted organ and tissue status, unspecified SNOMED: 725321121 Status: unchanged Status Narrative Discussed with Dr. Escalera. Assessment/Plan History of liver transplant, currently on Prograf History of cholecystectomy status post tracheostomy and PEG Infected G-tube site, fu ID recs C. difficile negative x 2 would care cx >> GRAM NEGATIVE BACILLUS CT AP reviewed, Moderate to large right pleural effusion. Moderate Ascites. s/p Paracentesis yielding 4.1 yield, r/o SBP >> negative for malignant cells Status post right thoracentesis yielding 2.1 L >> negative for malignant cells Hep C antibody present, pending PCR Continue G-tube feedings GT site care BID/prn topical abx around GT site per ID HD per nephro cont tacrolimus prn transfusions ppi zofran prn Imodium prn, Lomotil for persistent diarrhea follow labs supportive care The patient was seen and examined at bedside and all new and available data was reviewed in the patients chart. I agree with the above findings, impression and plan. (Patient seen earlier today. Signature stamp does not reflect patient encounter time.). - Jorge Escalera MD Subjective Subjective Limited abdominal distention and discomfort improved diarrhea Objective Last 24 Hour Vital Signs Date Time Temp Pulse Resp B/P (MAP) Pulse Ox O2 Delivery O2 Flow Rate FiO2 01/20/19 09:00 40 01/20/19 08:55 73 95/47 01/20/19 08:00 Mechanical Ventilator 01/20/19 08:00 72 01/20/19 08:00 97.7 73 26 95/47 (63) 100 01/20/19 07:23 80 28 40 01/20/19 05:28 77 26 40 01/20/19 04:00 Mechanical Ventilator 01/20/19 04:00 40 01/20/19 04:00 98.1 75 26 100 01/20/19 03:49 74 01/20/19 03:20 75 26 40 01/20/19 00:59 72 28 40 01/20/19 00:00 Mechanical Ventilator 01/20/19 00:00 98.4 74 28 108/62 (77) 99 01/19/19 23:41 69 01/19/19 23:32 78 26 40 01/19/19 20:56 81 28 40 01/19/19 20:25 86 113/49 01/19/19 20:00 97.5 86 30 113/49 (70) 100 01/19/19 20:00 Mechanical Ventilator 01/19/19 20:00 40 01/19/19 20:00 87 01/19/19 18:55 88 38 40 01/19/19 16:49 84 31 40 01/19/19 16:00 Mechanical Ventilator 01/19/19 16:00 98.3 83 37 152/74 (100) 99 01/19/19 16:00 40 01/19/19 16:00 89 01/19/19 14:50 85 32 40 01/19/19 12:30 86 33 40 01/19/19 12:00 Mechanical Ventilator 01/19/19 12:00 82 01/19/19 12:00 40 01/19/19 12:00 97.4 87 26 155/95 (115) 99 01/19/19 11:35 82 30 40 Intake and Output 01/19/19 01/20/19 19:00 07:00 Intake Total 670 ml 735 ml Output Total 3000 ml Balance -2330 ml 735 ml Free Water 130 ml 240 ml Tube Feeding 540 ml 495 ml Hemodialysis UF 3000 ml # Bowel Movements 2 Height (Feet): 5 Height (Inches): 4.00 Weight (Pounds): 220 General Appearance: WD/WN, no apparent distress, alert Cardiovascular: normal rate Respiratory/Chest: normal breath sounds, no respiratory distress, other - mech vent Abdominal Exam: normal bowel sounds, non tender, soft, GT site - c/d/i Extremities: non-tender Kelvin Briggs NP Jan 20, 2019 09:35
[2019-01-20] MEDS: Acetaminophen 650mg/20.3ml GT PRN (11:42)
[2019-01-20 12:00] VITALS: BP 166/89
--- NOTE | 2019-01-20 12:54 | General Progress Note ---
Assessment/Plan Status: unchanged Assessment/Plan: #Right heel diabetic foot ulcer without osteomyelitis #PAD #Right IJ DVT -seen by Podiatry and ID -s/p Vanco x 2 weeks during HD -continue Eliquis -Vascular Surgery and Hematology following #Acute Resp hypercapnic failure s/p tracheostomy #Angioedema #Large right pleural effusion # R side trapped lung -continue trach care -Remains vent-dependant, breathing trials ongoing -Right thoracentesis 01/01/19 with 2.3 lt removed. Post procedure CXR with R trapped lung. -Spoke with Pulm, vent weaning ongoing #End-stage renal disease, on dialysis M-W- #RUE edema #Anasarca, ascites, scrotal edema, pleural effusion due to hypoalbuminemia -HD with UF per Nephrology -s/p PRBC transfusion during HD #Coronary artery disease -continue ASA, Coreg, atorvastatin -cardiology following #Type 2 DM -ISS #Acute metabolic encephalopathy -continue supportive care -Neurology following #history of chronic HCV infection #history of liver transplant -continue Prograf -GI following #Abdominal distension and ascites s/p therapeutic paracentesis -no nausea, vomiting or tenderness -continue supportive care -GI following -s/p paracentesis 12/31/18 4.1 lt #Dysphagia S/p PEG with PEG site cellulitis -s/p antibiotics per ID and GI -continue local wound care -tolerating tube feeds # FULL CODE Subjective Date patient seen: Jan 20, 2019 Time patient seen: 12:23 ROS Limited/Unobtainable: Yes Cardiovascular: Denies: chest pain Respiratory: Denies: cough Gastrointestinal/Abdominal: Denies: abdominal pain Allergies: Coded Allergies: CEPHALEXIN (Unverified Allergy, Unknown, 02/24/14) SULFAMETHOXAZOLE (Unverified Allergy, Unknown, 02/24/14) TRIMETHOPRIM (Unverified Allergy, Unknown, 02/24/14) Subjective Medicine follow up for acute resp failure, PAD, right heel infected DFU, ESRD, anasarca secondary to hypoalbuminemia, right IJ DVT. S/p 4 liter paracentesis and 2 liter thoracentesis. No new issues overnight. No new complaints Weaning trials ongoing Objective Last 24 Hour Vital Signs Date Time Temp Pulse Resp B/P (MAP) Pulse Ox O2 Delivery O2 Flow Rate FiO2 01/20/19 12:00 40 01/20/19 12:00 Mechanical Ventilator 01/20/19 11:05 88 32 40 01/20/19 09:00 40 01/20/19 09:00 78 30 40 01/20/19 08:55 73 95/47 01/20/19 08:00 Mechanical Ventilator 01/20/19 08:00 72 01/20/19 08:00 97.7 73 26 95/47 (63) 100 01/20/19 07:23 80 28 40 01/20/19 05:28 77 26 40 01/20/19 04:00 Mechanical Ventilator 01/20/19 04:00 40 01/20/19 04:00 98.1 75 26 100 01/20/19 03:49 74 01/20/19 03:20 75 26 40 01/20/19 00:59 72 28 40 01/20/19 00:00 Mechanical Ventilator 01/20/19 00:00 98.4 74 28 108/62 (77) 99 01/19/19 23:41 69 01/19/19 23:32 78 26 40 01/19/19 20:56 81 28 40 01/19/19 20:25 86 113/49 01/19/19 20:00 97.5 86 30 113/49 (70) 100 01/19/19 20:00 Mechanical Ventilator 01/19/19 20:00 40 01/19/19 20:00 87 01/19/19 18:55 88 38 40 01/19/19 16:49 84 31 40 01/19/19 16:00 Mechanical Ventilator 01/19/19 16:00 98.3 83 37 152/74 (100) 99 01/19/19 16:00 40 01/19/19 16:00 89 01/19/19 14:50 85 32 40 Intake and Output 01/19/19 01/20/19 19:00 07:00 Intake Total 670 ml 735 ml Output Total 3000 ml Balance -2330 ml 735 ml Free Water 130 ml 240 ml Tube Feeding 540 ml 495 ml Hemodialysis UF 3000 ml # Bowel Movements 2 Height (Feet): 5 Height (Inches): 4.00 Weight (Pounds): 220 General Appearance: no apparent distress, alert Cardiovascular: normal rate, regular rhythm Respiratory/Chest: lungs clear, normal breath sounds, no respiratory distress Abdomen: non tender, soft Dennis Branhma MD Jan 20, 2019 12:54
--- NOTE | 2019-01-20 13:13 | Cardiac Electrophysiology PN ---
Assessment/Plan Assessment/Plan 1. Troponin leak due to renal failure. No CP or SOB. Nl EF 2. Hx of CABG. On Coreg, aspirin and Lipitor 3. NSVT in setting of old MA and CABG. EF 55%. Continue Coreg. No Syncope 4. CHF and right pleural effusion. On hemodialysis. S/P Thoracentesis 5. S/P Right sided [employer] DDD pacemaker with Nl Fx. 6. End-stage renal disease, on hemodialysis MWF per Dr. Stevens 7. Multilevel AOD LE's with non-healing Right foot ulcer. Had abdominal angiogram per Dr Salmeron Antibiotic per Dr. Landis. FU by Dr. Huizar S/P peripheral intervention by Dr. Salmeron 12/22/18 Right foot on Wound-Vac 8. History of liver transplant on Prograf 9. Respiratory failure, S/P tracheostomy. 10. Pleural effusion. s/p 2300 cc thoracentesis 01/01/19 11. Dysphagia, S/P PEG DW RN Subjective Subjective Alert in NAD.No CP or SOB. Awaiting HD and transfer to [facility]. Objective Last 24 Hour Vital Signs Date Time Temp Pulse Resp B/P (MAP) Pulse Ox O2 Delivery O2 Flow Rate FiO2 01/20/19 12:00 40 01/20/19 12:00 Mechanical Ventilator 01/20/19 11:05 88 32 40 01/20/19 09:00 40 01/20/19 09:00 78 30 40 01/20/19 08:55 73 95/47 01/20/19 08:00 Mechanical Ventilator 01/20/19 08:00 72 01/20/19 08:00 97.7 73 26 95/47 (63) 100 01/20/19 07:23 80 28 40 01/20/19 05:28 77 26 40 01/20/19 04:00 Mechanical Ventilator 01/20/19 04:00 40 01/20/19 04:00 98.1 75 26 100 01/20/19 03:49 74 01/20/19 03:20 75 26 40 01/20/19 00:59 72 28 40 01/20/19 00:00 Mechanical Ventilator 01/20/19 00:00 98.4 74 28 108/62 (77) 99 01/19/19 23:41 69 01/19/19 23:32 78 26 40 01/19/19 20:56 81 28 40 01/19/19 20:25 86 113/49 01/19/19 20:00 97.5 86 30 113/49 (70) 100 01/19/19 20:00 Mechanical Ventilator 01/19/19 20:00 40 01/19/19 20:00 87 01/19/19 18:55 88 38 40 01/19/19 16:49 84 31 40 01/19/19 16:00 Mechanical Ventilator 01/19/19 16:00 98.3 83 37 152/74 (100) 99 01/19/19 16:00 40 01/19/19 16:00 89 01/19/19 14:50 85 32 40 Intake and Output 01/19/19 01/20/19 19:00 07:00 Intake Total 670 ml 735 ml Output Total 3000 ml Balance -2330 ml 735 ml Free Water 130 ml 240 ml Tube Feeding 540 ml 495 ml Hemodialysis UF 3000 ml # Bowel Movements 2 Objective HEAD AND NECK: No JVD. Tracheostomy intact LUNGS: Clear CARDIOVASCULAR: Irregular S1 and S2 with no gallop. Sternotomy is intact Pacemaker in the right subclavian ABDOMEN: Soft. PEG in place EXTREMITIES: Right heel connected to WoundVac Shivam Sharpe MD Jan 20, 2019 13:13
--- NOTE | 2019-01-20 13:54 | Pulmonology Progress Note ---
Assessment/Plan Assessment/Plan 1. Resp failure, hypercapnic 2. End-stage renal disease, on dialysis, status post multiple upper extremity vascular procedures. 3. Coronary artery bypass surgery. 4. Diabetes. 5. Dysphonia, tongue swelling, resolved; s/p trach 6. Trapped R lung with hydropneumothorax PLAN: tolerated weaning on IMV/PSV CXR with trapped lung, improved disc w physicians continue to wean slowly Subjective ROS Limited/Unobtainable: Yes Allergies: Coded Allergies: CEPHALEXIN (Unverified Allergy, Unknown, 02/24/14) SULFAMETHOXAZOLE (Unverified Allergy, Unknown, 02/24/14) TRIMETHOPRIM (Unverified Allergy, Unknown, 02/24/14) Objective Last 24 Hour Vital Signs Date Time Temp Pulse Resp B/P (MAP) Pulse Ox O2 Delivery O2 Flow Rate FiO2 01/20/19 12:00 85 01/20/19 12:00 40 01/20/19 12:00 Mechanical Ventilator 01/20/19 12:00 97.2 73 26 166/89 (114) 100 01/20/19 11:05 88 32 40 01/20/19 09:00 40 01/20/19 09:00 78 30 40 01/20/19 08:55 73 95/47 01/20/19 08:00 Mechanical Ventilator 01/20/19 08:00 72 01/20/19 08:00 97.7 73 26 95/47 (63) 100 01/20/19 07:23 80 28 40 01/20/19 05:28 77 26 40 01/20/19 04:00 Mechanical Ventilator 01/20/19 04:00 40 01/20/19 04:00 98.1 75 26 100 01/20/19 03:49 74 01/20/19 03:20 75 26 40 01/20/19 00:59 72 28 40 01/20/19 00:00 Mechanical Ventilator 01/20/19 00:00 98.4 74 28 108/62 (77) 99 01/19/19 23:41 69 01/19/19 23:32 78 26 40 01/19/19 20:56 81 28 40 01/19/19 20:25 86 113/49 01/19/19 20:00 97.5 86 30 113/49 (70) 100 01/19/19 20:00 Mechanical Ventilator 01/19/19 20:00 40 01/19/19 20:00 87 01/19/19 18:55 88 38 40 01/19/19 16:49 84 31 40 01/19/19 16:00 Mechanical Ventilator 01/19/19 16:00 98.3 83 37 152/74 (100) 99 01/19/19 16:00 40 01/19/19 16:00 89 01/19/19 14:50 85 32 40 Intake and Output 01/19/19 01/20/19 19:00 07:00 Intake Total 670 ml 735 ml Output Total 3000 ml Balance -2330 ml 735 ml Free Water 130 ml 240 ml Tube Feeding 540 ml 495 ml Hemodialysis UF 3000 ml # Bowel Movements 2 Objective trach on vent General Appearance: other - sleeping Respiratory/Chest: lungs clear, decreased breath sounds Cardiovascular: normal rate Current Medications Medications (Trade) Dose Ordered Sig/Aleks Route PRN Reason Start Time Stop Time Status Last Admin Dose Admin Acetaminophen (Tylenol) 650 mg Q6H PRN GT Mild Pain/Temp > 100.5 12/21/18 16:00 01/20/19 15:59 01/20/19 11:42 Apixaban (Eliquis) 2.5 mg BID GT 01/01/19 21:00 01/31/19 20:59 01/20/19 08:56 Aspirin (ASA) 81 mg DAILY PEG 01/19/19 09:00 02/18/19 08:59 01/20/19 08:54 Atorvastatin Calcium (Lipitor) 10 mg BEDTIME GT 01/18/19 21:00 02/17/19 20:59 01/19/19 20:25 Carvedilol (Coreg) 3.125 mg EVERY 12 HOURS PEG 01/18/19 21:00 02/17/19 20:59 01/19/19 20:25 Clotrimazole (Lotrimin) 1 applic DAILY TOPIC 01/08/19 18:00 02/07/19 17:59 01/20/19 08:56 Collagenase (Santyl) 1 applic DAILY TOPIC 12/29/18 09:00 01/28/19 08:59 01/20/19 08:56 Dextrose (Dextrose 50%) 25 ml Q30M PRN IV Hypoglycemia 12/31/18 23:00 01/30/19 22:59 Dextrose (Dextrose 50%) 50 ml Q30M PRN IV Hypoglycemia 12/31/18 23:00 01/30/19 22:59 Docusate Sodium (Colace) 100 mg TWICE A DAY GT 01/18/19 18:00 02/17/19 17:59 01/20/19 08:55 Epoetin Vini (Epoetin Vini(ESRD on dialysis)) 10,000 unit SUBQ 01/06/19 21:00 02/05/19 20:59 01/18/19 21:11 Escitalopram Oxalate (Lexapro) 20 mg DAILY GT 01/05/19 09:00 02/04/19 08:59 01/20/19 08:55 Hydralazine HCl (Apresoline) 25 mg Q4H PRN GT bp over 160 syst 01/06/19 15:00 02/05/19 14:59 Ibuprofen (Advil) 400 mg TIDPRN PRN ORAL For Pain 01/18/19 11:30 02/17/19 11:29 01/18/19 14:22 Insulin Aspart (NovoLOG) EVERY 6 HOURS SUBQ 01/01/19 00:00 01/31/19 00:00 01/20/19 11:42 Lansoprazole (Prevacid) 30 mg DAILY GT 01/16/19 09:00 02/15/19 08:59 01/20/19 08:55 Loperamide HCl (Imodium) 2 mg Q6H PRN GT Diarrhea 01/07/19 11:00 02/06/19 10:59 01/16/19 04:24 Mirtazapine (Remeron) 15 mg BEDTIME GT 12/21/18 21:00 01/20/19 20:59 01/19/19 20:25 Tacrolimus (Prograf) 2 mg MoWeFr@0000,1200 ORAL 12/28/18 00:00 01/27/19 00:00 01/20/19 11:43 Tacrolimus (Prograf) 2 mg SuTuThSa@0900,2100 ORAL 12/26/18 21:00 01/25/19 20:59 01/19/19 20:25 Saroj Mendoza MD Jan 20, 2019 13:54
--- NOTE | 2019-01-20 14:36 | Nephrology Progress Note ---
Assessment/Plan Problem List: (1) ESRD (end stage renal disease) on dialysis (2) Foot ulcer (3) CHF (congestive heart failure) Assessment: Ej Fx 20 % (4) Pacemaker (5) Acute respiratory failure Assessment: with Co2 retention (6) G-tube site cellulitis Assessment ESRD with high K and SOB on admit Foot ulcer, likely infected High Troponin likely NSTMI Pacer , Pleural effusion s/p CABGS s/p Liver transplant Plan dialysis 3 times weekly labs before HD noted BP low- improved on midodrine per consultants, GI GT site infection, topical antibiotic Neuro note appreciated placement in process vascular esteban regarding heel ulcer per Dr Mcgill pain med change to dilaudid GT Now has tracheostomy and PEG Adjust BP meds add nitro paste TID Antibiotics by ID per cardio and ID Podiatry and Vascular surgical fu ? DC planning? Subjective ROS Limited/Unobtainable: No Objective Objective Last 24 Hour Vital Signs Date Time Temp Pulse Resp B/P (MAP) Pulse Ox O2 Delivery O2 Flow Rate FiO2 01/20/19 12:00 85 01/20/19 12:00 40 01/20/19 12:00 Mechanical Ventilator 01/20/19 12:00 97.2 73 26 166/89 (114) 100 01/20/19 11:05 88 32 40 01/20/19 09:00 40 01/20/19 09:00 78 30 40 01/20/19 08:55 73 95/47 01/20/19 08:00 Mechanical Ventilator 01/20/19 08:00 72 01/20/19 08:00 97.7 73 26 95/47 (63) 100 01/20/19 07:23 80 28 40 01/20/19 05:28 77 26 40 01/20/19 04:00 Mechanical Ventilator 01/20/19 04:00 40 01/20/19 04:00 98.1 75 26 100 01/20/19 03:49 74 01/20/19 03:20 75 26 40 01/20/19 00:59 72 28 40 01/20/19 00:00 Mechanical Ventilator 01/20/19 00:00 98.4 74 28 108/62 (77) 99 01/19/19 23:41 69 01/19/19 23:32 78 26 40 01/19/19 20:56 81 28 40 01/19/19 20:25 86 113/49 6/4/19 20:00 97.5 86 30 113/49 (70) 100 01/19/19 20:00 Mechanical Ventilator 01/19/19 20:00 40 01/19/19 20:00 87 01/19/19 18:55 88 38 40 01/19/19 16:49 84 31 40 01/19/19 16:00 Mechanical Ventilator 01/19/19 16:00 98.3 83 37 152/74 (100) 99 01/19/19 16:00 40 01/19/19 16:00 89 01/19/19 14:50 85 32 40 Intake and Output 01/19/19 01/20/19 19:00 07:00 Intake Total 670 ml 735 ml Output Total 3000 ml Balance -2330 ml 735 ml Free Water 130 ml 240 ml Tube Feeding 540 ml 495 ml Hemodialysis UF 3000 ml # Bowel Movements 2 Height (Feet): 5 Height (Inches): 4.00 Weight (Pounds): 220 General Appearance: no apparent distress EENT: other - TRACH Respiratory/Chest: decreased breath sounds Abdomen: distended Objective no other change Nakul Stevens MD Jan 20, 2019 14:36
--- NOTE | 2019-01-20 16:13 | Infectious Diseases Prog Note ---
Assessment/Plan Problems: (1) Diarrhea Assessment & Plan: improved, with no infectious etiology so far , and negative stool for C diff toxin , and no pathogens on stool culture , use laxatives as needed , monitor clinically , encourage hydration (2) Foot ulcer Assessment & Plan: with MRSA grew out of it in the past, S/P vancomycin treatment with HD for two weeks, had vascular eval with revascularization to the right leg , S/P ulcer resection by assembler carbon brushes . deep ulcer culture grew MRSA and E.coli with diphtheroids , possible colonization , with no evidence of active infection as per discussion with podiatry , no need to be started on antibiotics for now , will continue to monitor clinically and make recommendations as necessary . bone scan ruled out osteomyelitis of the heel before, couldn't do an MRI since on the vent . continue local wound care as per assembler carbon brushes . (3) Thrush, oral Assessment & Plan: continue local nystatin as needed , S/P micafungin for three weeks empirically (4) HCV antibody positive Assessment & Plan: no evidence of active infection, with undetectable viral load , suspect due to previous infection , cleared, S/P liver transplant . (5) DM (diabetes mellitus) Assessment & Plan: recommend tight glycemic control to keep blood glucose between 100-140 (6) CHF (congestive heart failure) Assessment & Plan: on HD , renal is following, monitor daily weight , S/P multiple thoracentesis (7) Severe tongue swelling Assessment & Plan: improving , s/p tracheostomy to protect his airway since respiratory status worsened . now improving, pulmonary is following (8) Pleural effusion Assessment & Plan: recurrent on the right, with lung collapse , S/P thoracentesis X 3 now with removal of 2.3 liters of clear fluids on 12/31/18 . await fluids culture and gram stain, with PH and Glucose level . PREVIOUS culture were negative with negative cytology. pulmonary is following (9) Ascites Assessment & Plan: S/P paracentesis with removal of 4.1 liters of fluids, culture so far is negative Assessment/Plan will continue to monitor patient on daily basis and make recommendations as necessary since he is high risk for recurrent infection Subjective Constitutional: Reports: no symptoms HEENT: Reports: no symptoms Respiratory: Reports: no symptoms Breasts: Reports: no symptoms Cardiovascular: Reports: no symptoms Gastrointestinal/Abdominal: Reports: no symptoms Genitourinary: Reports: no symptoms Neurologic: Reports: no symptoms Psychiatric: Reports: no symptoms Skin: Reports: no symptoms Endocrine: Reports: no symptoms Hematologic: Reports: no symptoms Musculoskeletal: Reports: no symptoms Allergies: Coded Allergies: CEPHALEXIN (Unverified Allergy, Unknown, 02/24/14) SULFAMETHOXAZOLE (Unverified Allergy, Unknown, 02/24/14) TRIMETHOPRIM (Unverified Allergy, Unknown, 02/24/14) Subjective he was comfortable, lying in bed, awake and responsive, no fever or chills, no significant secretions from the trach , no SOB . has left heel with wound VAC in place, but no draining coming out . no diarrhea . Objective Vital Signs Last 24 Hour Vital Signs Date Time Temp Pulse Resp B/P (MAP) Pulse Ox O2 Delivery O2 Flow Rate FiO2 01/20/19 14:30 79 29 40 01/20/19 14:30 99 01/20/19 13:10 75 30 40 01/20/19 12:00 85 01/20/19 12:00 40 01/20/19 12:00 Mechanical Ventilator 01/20/19 12:00 97.2 73 26 166/89 (114) 100 01/20/19 11:05 88 32 40 01/20/19 09:00 40 01/20/19 09:00 78 30 40 01/20/19 08:55 73 95/47 01/20/19 08:00 Mechanical Ventilator 01/20/19 08:00 72 01/20/19 08:00 97.7 73 26 95/47 (63) 100 01/20/19 07:23 80 28 40 01/20/19 05:28 77 26 40 01/20/19 04:00 Mechanical Ventilator 01/20/19 04:00 40 01/20/19 04:00 98.1 75 26 100 01/20/19 03:49 74 01/20/19 03:20 75 26 40 01/20/19 00:59 72 28 40 01/20/19 00:00 Mechanical Ventilator 01/20/19 00:00 98.4 74 28 108/62 (77) 99 01/19/19 23:41 69 01/19/19 23:32 78 26 40 01/19/19 20:56 81 28 40 01/19/19 20:25 86 113/49 01/19/19 20:00 97.5 86 30 113/49 (70) 100 01/19/19 20:00 Mechanical Ventilator 01/19/19 20:00 40 01/19/19 20:00 87 01/19/19 18:55 88 38 40 01/19/19 16:49 84 31 40 Height (Feet): 5 Height (Inches): 4.00 Weight (Pounds): 220 General Appearance: WD/WN, no acute distress HEENT: normocephalic, atraumatic, anicteric, mucous membranes moist, PERRL Respiratory/Chest: chest wall non-tender, lungs clear, normal breath sounds, no respiratory distress, no accessory muscle use Cardiovascular: normal peripheral pulses, normal rate, regular rhythm, no gallop/murmur, no JVD Abdomen: normal bowel sounds, soft, non tender, no organomegaly, non distended , no mass, no scars Genitourinary: normal external genitalia Extremities: no cyanosis, no clubbing Skin: no rash, no lesions, ulcers 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: training officer 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 normal, no motor/sensory deficits, abnormal gait, alert, oriented x 3, responsive Lymphatic: no neck adenopathy, no groin adenopathy Musculoskeletal: normal muscle bulk, no effusion Current Medications Medications (Trade) Dose Ordered Sig/Aleks Route PRN Reason Start Time Stop Time Status Last Admin Dose Admin Acetaminophen (Tylenol) 650 mg Q6H PRN GT Mild Pain/Temp > 100.5 12/21/18 16:00 01/20/19 15:59 01/20/19 11:42 Apixaban (Eliquis) 2.5 mg BID GT 01/01/19 21:00 01/31/19 20:59 01/20/19 08:56 Aspirin (ASA) 81 mg DAILY PEG 01/19/19 09:00 02/18/19 08:59 01/20/19 08:54 Atorvastatin Calcium (Lipitor) 10 mg BEDTIME GT 01/18/19 21:00 02/17/19 20:59 01/19/19 20:25 Carvedilol (Coreg) 3.125 mg EVERY 12 HOURS PEG 01/18/19 21:00 02/17/19 20:59 01/19/19 20:25 Clotrimazole (Lotrimin) 1 applic DAILY TOPIC 01/08/19 18:00 02/07/19 17:59 01/20/19 08:56 Collagenase (Santyl) 1 applic DAILY TOPIC 12/29/18 09:00 01/28/19 08:59 01/20/19 08:56 Dextrose (Dextrose 50%) 25 ml Q30M PRN IV Hypoglycemia 12/31/18 23:00 01/30/19 22:59 Dextrose (Dextrose 50%) 50 ml Q30M PRN IV Hypoglycemia 12/31/18 23:00 01/30/19 22:59 Docusate Sodium (Colace) 100 mg TWICE A DAY GT 01/18/19 18:00 02/17/19 17:59 01/20/19 08:55 Epoetin Vini (Epoetin Vini(ESRD on dialysis)) 10,000 unit SUBQ 01/06/19 21:00 02/05/19 20:59 01/18/19 21:11 Escitalopram Oxalate (Lexapro) 20 mg DAILY GT 01/05/19 09:00 02/04/19 08:59 01/20/19 08:55 Hydralazine HCl (Apresoline) 25 mg Q4H PRN GT bp over 160 syst 01/06/19 15:00 02/05/19 14:59 Ibuprofen (Advil) 400 mg TIDPRN PRN ORAL For Pain 01/18/19 11:30 02/17/19 11:29 01/18/19 14:22 Insulin Aspart (NovoLOG) EVERY 6 HOURS SUBQ 01/01/19 00:00 01/31/19 00:00 01/20/19 11:42 Lansoprazole (Prevacid) 30 mg DAILY GT 01/16/19 09:00 02/15/19 08:59 01/20/19 08:55 Loperamide HCl (Imodium) 2 mg Q6H PRN GT Diarrhea 01/07/19 11:00 02/06/19 10:59 01/16/19 04:24 Mirtazapine (Remeron) 15 mg BEDTIME GT 12/21/18 21:00 01/20/19 20:59 01/19/19 20:25 Tacrolimus (Prograf) 2 mg MoWeFr@0000,1200 ORAL 12/28/18 00:00 01/27/19 00:00 01/20/19 11:43 Tacrolimus (Prograf) 2 mg Johnny@0900,2100 ORAL 12/26/18 21:00 01/25/19 20:59 01/19/19 20:25 Francois Landis M.D. Jan 20, 2019 16:13
--- NOTE | 2019-01-20 17:07 | Neurology Progress Note ---
Interim History Interim History Interim History Mr. Restrepo feels well. His headache has resolved. He is being weaned off the ventilator and is comfortable. He continues to be more alert. His mood is fair. He is in fair spirits. The right heel is less painful - and is healing well. The right upper extremity is less swollen and less painful. He has been able to sleep better. He is still artificially ventilated. He feels that his strength is stable. The mind is clearer. He is eager to eat. He denies any new neurological symptoms. He is still worried about his hearing. Review of Systems Neuro Review of Systems Benign. Review of Systems Neuro Review of Systems Benign. Objective Physical Exam Last Vital Signs Date Time Temp Pulse Resp B/P (MAP) Pulse Ox O2 Delivery O2 Flow Rate FiO2 01/20/19 16:30 81 30 40 01/20/19 16:00 Mechanical Ventilator 01/20/19 14:30 99 01/20/19 12:00 97.2 166/89 (114) Neurologic Exam Objective PHYSICAL EXAMINATION: GENERAL: He is a well-developed and well-nourished, pleasant gentleman, lying in bed, connected to a ventilator via a tracheostomy. HEAD: Normocephalic and atraumatic. EENT: Examination benign. NECK: No neck rigidity was observed. He did have a tracheostomy. NEUROLOGICAL EXAMINATION: MENTAL STATUS EXAMINATION: He was awake and alert. He was oriented to person, place and time. He was able to recall 3/3 words immediately and was able to remember them in 1 and 3 minutes. He was able to remember presidents Trump through Mak Keny. His mathematical skills were fair. His visuospatial function was preserved. SPEECH: Could not be tested, but he was able to mouth words relatively well. LANGUAGE: He was able to comprehend and express himself relatively well. CRANIAL NERVES EXAMINATION: II: The visual mckeon were intact to confrontation testing. III, IV & : The external ocular movements were full and the pupils 3 mm in diameter, equal, round, regular, and reactive sluggishly to light. V: He had normal facial sensations, and the temporales, masseters, and pterygoids functioned normally. VII: He had normal facial expressions and no facial asymmetry. VIII: Hearing was decreased bilaterally with worse hearing on the left side compared to the right. IX: The palate moved symmetrically on phonation. X: Could not be tested. XI: The sternocleidomastoids and trapezii functioned normally. XII: The tongue was in the midline without any fasciculations or atrophy. MOTOR SYSTEM: The tone was normal in all four extremities. Examination of muscle mass revealed generalized muscle wasting. Examination of power revealed G 5/5 power except for G 4+/5 power in the iliopsoas muscles bilaterally. SENSORY EXAMINATION: He had intact sensations to light touch. Other sensory modalities could not be tested adequately. REFLEXES: 1+ and bilaterally symmetrical at the biceps, triceps, brachioradialis , and knees, 0 at both ankles. The plantar responses were flexor bilaterally. COORDINATION: He performed well on [id number] testing. STANCE & GAIT: Were deferred. Impression/Recommendations Diagnostic Impression 1. Mr. Gregg Restrepo is a 69-year-old, right-handed, gentleman with past history of multiple medical problems including hypertension, diabetes mellitus, end-stage renal disease for which he is hemodialysis dependent, prior episodes of sepsis, and prior episodes of encephalopathy, who was admitted to [facility] on October 31, 2018. Following that, he has had a stormy hospital course including pneumonia and sepsis, right foot infection, respiratory failure for which he has needed tracheostomy and in addition he has exhibited an alteration in his mental state with some waxing and waning of his mental state. 2. He feels well. His headache has resolved. He is being weaned off the ventilator and is comfortable. He continues to be more alert. His mood is fair. He is in fair spirits. The right heel is less painful - and is healing well. The right upper extremity is less swollen and less painful. He has been able to sleep better. He is still artificially ventilated. He feels that his strength is stable. The mind is clearer. He is eager to eat. He denies any new neurological symptoms. He is still worried about his hearing. 3. On neurological examination, at this time, he is fully oriented, his recent memory is normal. He has minimally impaired higher cognitive function. He is able to comprehend and express himself well. He does have mild G 4+/5 weakness in the iliopsoas muscles bilaterally. He had globally diminished deep tendon reflexes with loss of ankle jerks, but no definite focal or lateralizing neurological findings. 4. His latest laboratory data on my initial evaluation revealed that he was anemic with a hemoglobin of 10.8 G. His last blood gas performed on 11/14/2018 revealed that he had a pCO2 elevated at 56.4 with a normal pO2 of 88.3 and normal pH of 7.37. His latest chemistry panel revealed that he was mildly hyponatremic with a sodium of 130, and had a chloride of 90. The BUN was elevated at 75, creatinine elevated at 7.4, glucose elevated at 156, Hemoglobin A1c elevated at 6.9%, Alkaline phosphatase elevated at 131, and ProBNP greater than 35,000. His last B12 level on 11/07/2018 was 723. His last folate on was 18.6. His last TSH on 12/06/2018 was 4.82, which is minimally elevated. 5. The CT scan of the brain performed on 11/10/2018 was benign for acute intracranial pathology. 6. The EEG done on 12/08/18 revealed left temporal dysfunction. 7. The patient's history and neurological examination are most consistent with mild multifactorial encephalopathy, which apparently waxes and wanes, but no definite focal neurological dysfunction. His encephalopathy is stable. 8. He tells me that he had a brain bleed many years ago. I did review his imaging done at [facility] a few years ago and he had closed head injuries with subarachnoid and subdural blood in the past. 9. His mood has improved. 10. There has never been a doubt regarding his ability to make decisions regarding his medical care. 11. He is eager to eat again and is worried about his hearing. Recommendations 1. Continue present management. 2. Continue to correct the patient's toxic metabolic imbalances. 3. Mobilize with PT/OT. 4. Consider getting swallowing evaluation so that he can be fed for enjoyment. 5. Consider ENT evaluation for hearing loss. 6. Observe. Pantera Cool M.D., M.S.P.H. Pantera Cool MD Jan 20, 2019 17:07
[2019-01-20 17:39] VITALS: BP 125/83
[2019-01-20 20:00] VITALS: BP 191/95
[2019-01-20 21:30] VITALS: BP 157/74
[2019-01-20] MEDS: Epoetin Alfa-EPBX(ESRD on dialysis)10,000 unit/ml vial SUBQ SCH (22:09)
[2019-01-21] VITALS: BP 166/76
[2019-01-21 04:00] VITALS: BP 160/72
--- NOTE | 2019-01-21 04:00 | Progress Note ---
DATE: 10/31/2018 SUBJECTIVE: He does not feel well today. He complained of abdominal pain. He also stated that he has difficulty breathing and asked the nurse to readjust the machine. stated that he did not sleep the night before. He feels more depressed today. He was able to communicate better. MENTAL STATUS EXAMINATION: The patient is alert, oriented times self, place, and situation. Mood is dysphoric. Affect is constricted. Congruent with mood. Thought process is linear. Thought content, no suicidal or homicidal ideation. ASSESSMENT: Depression and anxiety. PLAN: We will continue current medication. Provide the patient with reality orientation and supportive therapy. We will continue to follow and adjust the medications. Jeffrey Lala M.D. DR: Eyal JOB#: [id number] CC:
[2019-01-21] MEDS: NovoLOG Insulin Flexpen SUBQ SCH ×4 (05:41→23:43)
--- NOTE | 2019-01-21 07:37 | Cardiology Progress Note ---
Assessment/Plan Status: stable Assessment/Plan Assessment/Plan Assessment/Plan 1. Troponin leak with no chest pain. Hx of CABG. Due to renal failure. On Coreg 6.25 mg bid, aspirin and Lipitor 2. S/P CABG - outpatient stress test 3. Nonsustained ventricular tachycardia. 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 EF 55%. No Syncope, monitor electrolytes 4. Congestive heart failure. On hemodialysis 5. End-stage renal disease, on hemodialysis per Dr. Stevens 6. Status post right sided [employer]onic dual chamber pacemaker with Nl Fx. 7. Right foot ulcer. Antibiotic per Dr. Landis. FU by Dr. Huizar 8. History of liver transplant on Prograf 9. Respiratory failure, s/p Trach 10. Pleural effusion. 11. Dysphagia, S/P PEG Awaiting transfer to SNF Subjective Cardiovascular: Reports: no symptoms Respiratory: Reports: no symptoms Gastrointestinal/Abdominal: Reports: no symptoms Genitourinary: Reports: no symptoms Subjective C[employer]AGE FOR [employer] no acute events, awaiting transfer to SNF Objective Last 24 Hour Vital Signs Date Time Temp Pulse Resp B/P (MAP) Pulse Ox O2 Delivery O2 Flow Rate FiO2 01/21/19 07:05 72 23 40 01/21/19 05:03 83 24 40 01/21/19 04:00 Mechanical Ventilator 01/21/19 04:00 85 01/21/19 04:00 98.0 83 22 160/72 (101) 100 01/21/19 04:00 40 01/21/19 03:27 83 28 40 01/21/19 01:29 85 25 40 01/21/19 00:00 Mechanical Ventilator 01/21/19 00:00 40 01/21/19 00:00 98.0 82 27 166/76 (106) 99 01/21/19 00:00 86 01/20/19 22:58 82 22 40 01/20/19 21:52 89 157/74 01/20/19 21:30 157/74 (101) 01/20/19 21:25 84 28 40 01/20/19 20:00 40 01/20/19 20:00 99.2 82 27 191/95 (127) 100 01/20/19 20:00 81 01/20/19 20:00 Mechanical Ventilator 01/20/19 19:29 83 21 40 01/20/19 17:39 125/83 (97) 01/20/19 16:30 81 30 40 01/20/19 16:00 96.8 98 24 100 01/20/19 16:00 Mechanical Ventilator 01/20/19 16:00 40 01/20/19 16:00 80 01/20/19 14:30 79 29 40 01/20/19 14:30 99 01/20/19 13:10 75 30 40 01/20/19 12:00 85 01/20/19 12:00 40 01/20/19 12:00 Mechanical Ventilator 01/20/19 12:00 97.2 73 26 166/89 (114) 100 01/20/19 11:05 88 32 40 01/20/19 09:00 40 01/20/19 09:00 78 30 40 01/20/19 08:55 73 95/47 01/20/19 08:00 Mechanical Ventilator 01/20/19 08:00 72 01/20/19 08:00 97.7 73 26 95/47 (63) 100 General Appearance: no apparent distress, on vent EENT: PERRL/EOMI, normal ENT inspection, TMs normal Neck: non-tender, normal alignment, supple Rhythm: NSR Cardiovascular: normal peripheral pulses, normal rate Respiratory/Chest: chest wall non-tender, lungs clear, normal breath sounds Abdomen: normal bowel sounds, non tender, soft, no organomegaly Extremities: normal range of motion, non-tender, normal inspection Neurologic: seismograph recorder 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 normal, motor weakness Intake and Output 01/20/19 01/21/19 19:00 07:00 Intake Total 465 ml 535 ml Balance 465 ml 535 ml Free Water 135 ml 205 ml Tube Feeding 330 ml 330 ml # Bowel Movements 1 Dhruv Jin MD Jan 21, 2019 07:37
[2019-01-21 08:00] VITALS: BP 142/98
[2019-01-21] MEDS: Docusate 100mg/10ml Liq GT SCH ×2 (09:00→18:00)
--- NOTE | 2019-01-21 09:00 | Hematology/Onc Progress Note ---
Assessment/Plan Assessment/Plan Assessment and Recs: # Anemia of chronic disease due to underlying chronic medical issues, range has been 8-11, ferritin is 633, tibc is low --> Pt refused 01/21/19 am lab [facility]. --> No evidence of hemolysis is noted, peripheral smear has been reviewed. --> Epogen with HD 3x/wk --> Medications have been reviewed --> evaluate with Gi team prn --> transfuse if hgb is < 7 (will trend CBC daily) --> hgb trend 11.2-->10.9-->10.8-->10.7-->10.2-->9.7-->9.7-->8.5-->9-->9.2-->8.4 -->7.7-->8.8-->9.1-->8.6-->8.3-->8.9 --> s/p transfusion on 01/06 # Failure to thrive is likely related to poor overall status, poor functional status --> GT++ --> with multiple decub ulcerations that are noted, seen by id/surgery --> s/p trach as well --> cea is wnl # Acute non-occlusive dvt, right extremity ultrasound (acute non-occlusive DVT in internal jugular) --> currently is on eliquis 2.5mg po bid --> do not recommend a SVC filter --> given prior bleeding risk, hold off on heparin gtt --> vasc surgeon is aware, seek recs # Coagulopathy likely secondary to decreased Vitk dependent cofactors (high INR , PT) --> monitor closely for any evidence of bleeding. Currently is on eliquis --> VIT K on prn basis sq can be administered --> recently has improved inr 1.2-->1.1-->1.2-->1.1-->1.1 # Acute respiratory failure is now s/p trach to vent --> as per surgery recs # Ground glass opacities present on imaging of lung --> with pleural effusions, s/p drainage at this time --> no evidence for malignancy is noted --> as per pulm/id # Pleural effusion --> s/p thoracentesis, s/p paracentesis 12/31 --> no evidence of malignancy -->01/14 cxr: Interstitial edema, small left pleural effusion # Hyperkalemia --> kayxelate on prn basis per renal --> monitor K # Renal failure --> per renal recs, appreciated --> getting hd as per schedule # Altered level of consciousness --> currently as per baseline --> neuro eval prn # PAD off heparin gtt and now on eliquis --> per vasc and cards --> 12/22 s/p right leg angiogram with intervention --> on eliquis, continue # Gt tube cellulitis, on topical abx as per id around site The timing of this note does not necessarily reflect the time of the patient was seen. Greatly appreciate consultation! Subjective ROS Limited/Unobtainable: Yes Hematologic/Lymphatic: Reports: anemia Allergies: Coded Allergies: CEPHALEXIN (Unverified Allergy, Unknown, 02/24/14) SULFAMETHOXAZOLE (Unverified Allergy, Unknown, 02/24/14) TRIMETHOPRIM (Unverified Allergy, Unknown, 02/24/14) Subjective 11/30: comfortable, on abx, no complaints, on t-piece 12/01: to have hd done potentially tomorrow, is more alert/awake 12/02: no major bleeding, hgb remains approx 11, no changes 12/03: no events, breathing mildly better, hgb is improved 12/04: on vent/trach, no major changes, sr ekg 12/10: small amount of secretions, on trach/vent, no issues otherwise 12/11: no major issues, no complaints, labs reviewed, no sig changes 12/13: no events to report, no fevers or chills, awaiting placement 12/14: no changes, no major events to report, no fevers or chills 12/15: pending placement, getting gt feeds and hd as per renal 12/16: labs have been reviewed, cbc noted, no changes 12/17: no events, no fevers, no cp, hgb remains stable 12/18: restarted on heparin gtt, seen by pulm, cards 12/20: continues to be on heparin gtt, no bleeding reported, no f/c 12/21: hd for today, no fevers or chils, off hep gtt on eliquis 12/22: to get hd tomorrow, today is s/p right leg angiogram with intervention 12/23: hgb remins stable, no fevers or chills reported 12/24: no events, no bleeding, vitals reviewed, cbc stable 12/25: no events, no bleeding, on vent, hgb 9 12/27: no changes, no f/c, no night swearts, seen with other providers 12/28: right extremity ultrasound (acute non-occlusive DVT in internal jugular, on eliquis 12/29: no events, no night sweats, seen by gi, no bleeding 12/30: cbc has been reviewed, no f/c, no night sweats reported 12/31: no events, eliquis is on hold cbc has been reviewed, bp elevated 01/01: no fevers or chills, cbc reviewed, hgb 9.3, getting HD 01/02: no events noted, getting norco for pain, hgb stable 01/04: not events to report, no bleeding, refusing ivl at this time, cbc reviewed 01/05: no fevers or chills noted, s/p trach/vent, no f/c, no chills noted 01/06: no events, to get 1 unit prbc today, renal seen, on abx 01/07: hd for tomorrow, seen by renal, no events, cbc reviewed 01/08: getting Hd today, seen by renal, no major events, in sr 01/10: no events to report, to get hd tomorrow, hgb stable 01/11: on vent/trach, gtube, tolerating treatment well, hd today 01/12: remains nonverbal, stable, on vent/trach, no fc 01/13: no events noted, cbc has been reviewed 01/14: thora and para fluid still neg for malignancy, no bleeding 01/15: Pt examined at bedside. No acute events. Pt refusing IV access per nursing per nursing team. 01/17: Pt is awake and alert. Pt in stable condition. Hgb trending down: 8.3 will continue to monitor 01/18: Pt complain of abdominal pain and DIAZ. Hgb trend 8.3-->8.9 6/04: no events, cbc has been reviewed, hgb is stable today 01/20: Awake and alert, able to follow commands. Remains on vent. 01/21: Patient awake in bed. Trach to vent. Pt refused am lab draw. Objective Objective Current Medications Medications (Trade) Dose Ordered Sig/Aleks Route PRN Reason Start Time Stop Time Status Last Admin Dose Admin Apixaban (Eliquis) 2.5 mg BID GT 01/01/19 21:00 01/31/19 20:59 01/20/19 17:29 Aspirin (ASA) 81 mg DAILY PEG 01/19/19 09:00 02/18/19 08:59 01/20/19 08:54 Atorvastatin Calcium (Lipitor) 10 mg BEDTIME GT 01/18/19 21:00 02/17/19 20:59 01/20/19 21:52 Carvedilol (Coreg) 3.125 mg EVERY 12 HOURS PEG 01/18/19 21:00 02/17/19 20:59 01/20/19 21:52 Clotrimazole (Lotrimin) 1 applic DAILY TOPIC 01/08/19 18:00 02/07/19 17:59 01/20/19 08:56 Collagenase (Santyl) 1 applic DAILY TOPIC 12/29/18 09:00 01/28/19 08:59 01/20/19 08:56 Dextrose (Dextrose 50%) 25 ml Q30M PRN IV Hypoglycemia 12/31/18 23:00 01/30/19 22:59 Dextrose (Dextrose 50%) 50 ml Q30M PRN IV Hypoglycemia 12/31/18 23:00 01/30/19 22:59 Docusate Sodium (Colace) 100 mg TWICE A DAY GT 01/18/19 18:00 02/17/19 17:59 01/20/19 08:55 Epoetin Vini (Epoetin Vini(ESRD on dialysis)) 10,000 unit FRI-FRI-FRI SUBQ 01/06/19 21:00 02/05/19 20:59 01/20/19 22:09 Escitalopram Oxalate (Lexapro) 20 mg DAILY GT 01/05/19 09:00 02/04/19 08:59 01/20/19 08:55 Hydralazine HCl (Apresoline) 25 mg Q4H PRN GT bp over 160 syst 01/06/19 15:00 02/05/19 14:59 Ibuprofen (Advil) 400 mg TIDPRN PRN ORAL For Pain 01/18/19 11:30 02/17/19 11:29 01/20/19 21:53 Insulin Aspart (NovoLOG) EVERY 6 HOURS SUBQ 01/01/19 00:00 01/31/19 00:00 01/21/19 05:41 Lansoprazole (Prevacid) 30 mg DAILY GT 01/16/19 09:00 02/15/19 08:59 01/20/19 08:55 Loperamide HCl (Imodium) 2 mg Q6H PRN GT Diarrhea 01/07/19 11:00 02/06/19 10:59 01/16/19 04:24 Tacrolimus (Prograf) 2 mg MoWeFr@0000,1200 ORAL 12/28/18 00:00 01/27/19 00:00 01/20/19 11:43 Tacrolimus (Prograf) 2 mg SuTuThSa@0900,2100 ORAL 12/26/18 21:00 01/25/19 20:59 01/19/19 20:25 Last 24 Hour Vital Signs Date Time Temp Pulse Resp B/P (MAP) Pulse Ox O2 Delivery O2 Flow Rate FiO2 01/21/19 08:40 79 25 40 01/21/19 08:00 40 01/21/19 07:05 72 23 40 01/21/19 05:03 83 24 40 01/21/19 04:00 Mechanical Ventilator 01/21/19 04:00 85 01/21/19 04:00 98.0 83 22 160/72 (101) 100 01/21/19 04:00 40 01/21/19 03:27 83 28 40 01/21/19 01:29 85 25 40 01/21/19 00:00 Mechanical Ventilator 01/21/19 00:00 40 01/21/19 00:00 98.0 82 27 166/76 (106) 99 01/21/19 00:00 86 01/20/19 22:58 82 22 40 01/20/19 21:52 89 157/74 01/20/19 21:30 157/74 (101) 01/20/19 21:25 84 28 40 01/20/19 20:00 40 01/20/19 20:00 99.2 82 27 191/95 (127) 100 01/20/19 20:00 81 01/20/19 20:00 Mechanical Ventilator 01/20/19 19:29 83 21 40 01/20/19 17:39 125/83 (97) 01/20/19 16:30 81 30 40 01/20/19 16:00 96.8 98 24 100 01/20/19 16:00 Mechanical Ventilator 01/20/19 16:00 40 01/20/19 16:00 80 01/20/19 14:30 79 29 40 01/20/19 14:30 99 01/20/19 13:10 75 30 40 01/20/19 12:00 85 01/20/19 12:00 40 01/20/19 12:00 Mechanical Ventilator 01/20/19 12:00 97.2 73 26 166/89 (114) 100 01/20/19 11:05 88 32 40 01/20/19 09:00 40 01/20/19 09:00 78 30 40 01/20/19 08:55 73 95/47 01/20/19 08:00 Mechanical Ventilator 01/20/19 08:00 72 01/20/19 08:00 97.7 73 26 95/47 (63) 100 01/20/19 07:23 80 28 40 01/20/19 05:28 77 26 40 01/20/19 04:00 Mechanical Ventilator 01/20/19 04:00 40 01/20/19 04:00 98.1 75 26 100 01/20/19 03:49 74 01/20/19 03:20 75 26 40 01/20/19 00:59 72 28 40 01/20/19 00:00 Mechanical Ventilator 01/20/19 00:00 98.4 74 28 108/62 (77) 99 01/19/19 23:41 69 01/19/19 23:32 78 26 40 01/19/19 20:56 81 28 40 01/19/19 20:25 86 113/49 01/19/19 20:00 97.5 86 30 113/49 (70) 100 01/19/19 20:00 Mechanical Ventilator 01/19/19 20:00 40 01/19/19 20:00 87 01/19/19 18:55 88 38 40 01/19/19 16:49 84 31 40 01/19/19 16:00 Mechanical Ventilator 01/19/19 16:00 98.3 83 37 152/74 (100) 99 01/19/19 16:00 40 01/19/19 16:00 89 01/19/19 14:50 85 32 40 01/19/19 12:30 86 33 40 01/19/19 12:00 Mechanical Ventilator 01/19/19 12:00 82 01/19/19 12:00 40 01/19/19 12:00 97.4 87 26 155/95 (115) 99 01/19/19 11:35 82 30 40 01/19/19 09:01 82 155/99 Intake and Output 01/20/19 01/21/19 18:59 06:59 Intake Total 435 ml 565 ml Balance 435 ml 565 ml Free Water 120 ml 220 ml Tube Feeding 315 ml 345 ml # Bowel Movements 1 Labs Test 01/19/19 03:50 White Blood Count 5.9 K/UL (4.8-10.8) Red Blood Count 3.58 M/UL (4.70-6.10) Hemoglobin 8.9 G/DL (14.2-18.0) Hematocrit 28.8 % (42.0-52.0) Mean Corpuscular Volume 80 FL (80-99) Mean Corpuscular Hemoglobin 24.9 PG (27.0-31.0) Mean Corpuscular Hemoglobin Concent 31.0 G/DL (32.0-36.0) Red Cell Distribution Width 16.9 % (11.6-14.8) Platelet Count 193 K/UL (150-450) Mean Platelet Volume 6.6 FL (6.5-10.1) Neutrophils (%) (Auto) 69.2 % (45.0-75.0) Lymphocytes (%) (Auto) 16.4 % (20.0-45.0) Monocytes (%) (Auto) 11.7 % (1.0-10.0) Eosinophils (%) (Auto) 0.1 % (0.0-3.0) Basophils (%) (Auto) 2.8 % (0.0-2.0) Sodium Level 131 MMOL/L (136-145) Potassium Level 4.1 MMOL/L (3.5-5.1) Chloride Level 92 MMOL/L (98-107) Carbon Dioxide Level 27 MMOL/L (21-32) Anion Gap 12 mmol/L (5-15) Blood Urea Nitrogen 69 mg/dL (7-18) Creatinine 6.0 MG/DL (0.55-1.30) Estimat Glomerular Filtration Rate 9.4 mL/min (>60) Glucose Level 138 MG/DL (74-106) Calcium Level 9.4 MG/DL (8.5-10.1) Total Bilirubin 0.3 MG/DL (0.2-1.0) Aspartate Amino Transf (AST/SGOT) 19 U/L (15-37) Alanine Aminotransferase (ALT/SGPT) 15 U/L (12-78) Alkaline Phosphatase 117 U/L (46-116) Total Protein 6.6 G/DL (6.4-8.2) Albumin 2.0 G/DL (3.4-5.0) Globulin 4.6 g/dL Albumin/Globulin Ratio 0.4 (1.0-2.7) Height (Feet): 5 Height (Inches): 4.00 Weight (Pounds): 221 Objective PE General Appearance: mild distress, moderate distress Lines, tubes and drains: peripheral HEENT: EOMI, ++ thrush, tonsils swollen ++trach Neck: normal inspection Respiratory/Chest: decreased breath sounds, accessory muscle use. VENT++ Cardiovascular/Chest: tachycardia Abdomen: soft, no organomegaly, no mass, ++ peg Extremities: other Skin Exam: warm/dry, rash Neurologic: alert, responsive Zacarias Khoury MD Jan 21, 2019 09:00
[2019-01-21] MEDS: Aspirin Baby 81mg PEG SCH (09:32)
[2019-01-21] MEDS: Eliquis 2.5mg tablet GT SCH ×2 (09:33→18:25)
--- NOTE | 2019-01-21 10:04 | GI Progress Note ---
Assessment/Plan Problems: (1) Foot ulcer ICD Codes: L97.509 - Non-pressure chronic ulcer of other part of unspecified foot with unspecified severity SNOMED: 49287759 Qualifiers: Qualified Codes: L97.511 - Non-pressure chronic ulcer of other part of right foot limited to breakdown of skin (2) DM (diabetes mellitus) ICD Codes: E11.9 - Type 2 diabetes mellitus without complications SNOMED: 23861610 (3) Transplant ICD Codes: Z94.9 - Transplanted organ and tissue status, unspecified SNOMED: 212158859 Status: stable Status Narrative Discussed with Dr. Escalera. Assessment/Plan History of liver transplant, currently on Prograf History of cholecystectomy status post tracheostomy and PEG Infected G-tube site, fu ID recs C. difficile negative x 2 would care cx >> GRAM NEGATIVE BACILLUS CT AP reviewed, Moderate to large right pleural effusion. Moderate Ascites. s/p Paracentesis yielding 4.1 yield, r/o SBP >> negative for malignant cells Status post right thoracentesis yielding 2.1 L >> negative for malignant cells Hep C antibody present, pending PCR Continue G-tube feedings GT site care BID/prn topical abx around GT site per ID HD per nephro cont tacrolimus prn transfusions ppi zofran prn Imodium prn, Lomotil for persistent diarrhea follow labs supportive care The patient was seen and examined at bedside and all new and available data was reviewed in the patients chart. I agree with the above findings, impression and plan. (Patient seen earlier today. Signature stamp does not reflect patient encounter time.). - Jorge Escalera MD Subjective Subjective Limited abdominal distention and discomfort improved diarrhea Objective Last 24 Hour Vital Signs Date Time Temp Pulse Resp B/P (MAP) Pulse Ox O2 Delivery O2 Flow Rate FiO2 01/21/19 09:33 114 142/98 01/21/19 08:40 79 25 40 01/21/19 08:00 40 01/21/19 07:05 72 23 40 01/21/19 05:03 83 24 40 01/21/19 04:00 Mechanical Ventilator 01/21/19 04:00 85 01/21/19 04:00 98.0 83 22 160/72 (101) 100 01/21/19 04:00 40 01/21/19 03:27 83 28 40 01/21/19 01:29 85 25 40 01/21/19 00:00 Mechanical Ventilator 01/21/19 00:00 40 01/21/19 00:00 98.0 82 27 166/76 (106) 99 01/21/19 00:00 86 01/20/19 22:58 82 22 40 01/20/19 21:52 89 157/74 01/20/19 21:30 157/74 (101) 01/20/19 21:25 84 28 40 01/20/19 20:00 40 01/20/19 20:00 99.2 82 27 191/95 (127) 100 01/20/19 20:00 81 01/20/19 20:00 Mechanical Ventilator 01/20/19 19:29 83 21 40 01/20/19 17:39 125/83 (97) 01/20/19 16:30 81 30 40 01/20/19 16:00 96.8 98 24 100 01/20/19 16:00 Mechanical Ventilator 01/20/19 16:00 40 01/20/19 16:00 80 01/20/19 14:30 79 29 40 01/20/19 14:30 99 01/20/19 13:10 75 30 40 01/20/19 12:00 85 01/20/19 12:00 40 01/20/19 12:00 Mechanical Ventilator 01/20/19 12:00 97.2 73 26 166/89 (114) 100 01/20/19 11:05 88 32 40 Intake and Output 01/20/19 01/21/19 19:00 07:00 Intake Total 465 ml 535 ml Balance 465 ml 535 ml Free Water 135 ml 205 ml Tube Feeding 330 ml 330 ml # Bowel Movements 1 Height (Feet): 5 Height (Inches): 4.00 Weight (Pounds): 221 General Appearance: WD/WN, no apparent distress, alert Cardiovascular: normal rate Respiratory/Chest: normal breath sounds, no respiratory distress, other - mech vent Abdominal Exam: normal bowel sounds, non tender, soft, GT site - c/d/i Extremities: non-tender Kelvin Briggs [employer] SPECIALIST Jan 21, 2019 10:04
--- NOTE | 2019-01-21 10:54 | Nephrology Progress Note ---
Assessment/Plan Problem List: (1) ESRD (end stage renal disease) on dialysis (2) Foot ulcer (3) CHF (congestive heart failure) Assessment: Ej Fx 20 % (4) Pacemaker (5) Acute respiratory failure Assessment: with Co2 retention (6) G-tube site cellulitis Assessment ESRD with high K and SOB on admit Foot ulcer, likely infected High Troponin likely NSTMI Pacer , Pleural effusion s/p CABGS s/p Liver transplant Plan dialysis 3 times weekly labs before HD noted BP low- improved on midodrine per consultants, GI GT site infection, topical antibiotic Neuro note appreciated placement in process vascular esteban regarding heel ulcer per Dr Mcgill pain med change to dilaudid GT Now has tracheostomy and PEG Adjust BP meds add nitro paste TID Antibiotics by ID per cardio and ID Podiatry and Vascular surgical fu ? DC planning? Subjective ROS Limited/Unobtainable: No Constitutional: Reports: malaise Objective Objective Last 24 Hour Vital Signs Date Time Temp Pulse Resp B/P (MAP) Pulse Ox O2 Delivery O2 Flow Rate FiO2 01/21/19 09:33 114 142/98 01/21/19 08:40 79 25 40 01/21/19 08:00 Mechanical Ventilator 01/21/19 08:00 96.6 82 24 142/98 (113) 99 01/21/19 08:00 40 01/21/19 07:05 72 23 40 01/21/19 05:03 83 24 40 01/21/19 04:00 Mechanical Ventilator 01/21/19 04:00 85 01/21/19 04:00 98.0 83 22 160/72 (101) 100 01/21/19 04:00 40 01/21/19 03:27 83 28 40 01/21/19 01:29 85 25 40 01/21/19 00:00 Mechanical Ventilator 01/21/19 00:00 40 01/21/19 00:00 98.0 82 27 166/76 (106) 99 01/21/19 00:00 86 01/20/19 22:58 82 22 40 01/20/19 21:52 89 157/74 01/20/19 21:30 157/74 (101) 01/20/19 21:25 84 28 40 01/20/19 20:00 40 01/20/19 20:00 99.2 82 27 191/95 (127) 100 01/20/19 20:00 81 01/20/19 20:00 Mechanical Ventilator 01/20/19 19:29 83 21 40 01/20/19 17:39 125/83 (97) 01/20/19 16:30 81 30 40 01/20/19 16:00 96.8 98 24 100 01/20/19 16:00 Mechanical Ventilator 01/20/19 16:00 40 01/20/19 16:00 80 01/20/19 14:30 79 29 40 01/20/19 14:30 99 01/20/19 13:10 75 30 40 01/20/19 12:00 85 01/20/19 12:00 40 01/20/19 12:00 Mechanical Ventilator 01/20/19 12:00 97.2 73 26 166/89 (114) 100 01/20/19 11:05 88 32 40 Intake and Output 01/20/19 01/21/19 19:00 07:00 Intake Total 465 ml 535 ml Balance 465 ml 535 ml Free Water 135 ml 205 ml Tube Feeding 330 ml 330 ml # Bowel Movements 1 Height (Feet): 5 Height (Inches): 4.00 Weight (Pounds): 221 General Appearance: no apparent distress EENT: other - vented Respiratory/Chest: decreased breath sounds Abdomen: distended Objective no other change Nakul Stevens MD Jan 21, 2019 10:54
[2019-01-21 12:00] VITALS: BP 116/96
--- NOTE | 2019-01-21 14:04 | General Progress Note ---
Assessment/Plan Status: stable Assessment/Plan: #Right heel diabetic foot ulcer without osteomyelitis #PAD #Right IJ DVT -seen by Podiatry and ID -s/p Vanco x 2 weeks during HD -continue Eliquis -Vascular Surgery and Hematology following #Acute Resp hypercapnic failure s/p tracheostomy #Angioedema #Large right pleural effusion # R side trapped lung -continue trach care -Remains vent-dependant, breathing trials ongoing -Right thoracentesis 01/01/19 with 2.3 lt removed. Post procedure CXR with R trapped lung. -Continue vent weaning #End-stage renal disease, on dialysis M-W- #RUE edema #Anasarca, ascites, scrotal edema, pleural effusion due to hypoalbuminemia -HD with UF per Nephrology -s/p PRBC transfusion during HD #Coronary artery disease -continue ASA, Coreg, atorvastatin -cardiology following #Type 2 DM -ISS #Acute metabolic encephalopathy -continue supportive care -Neurology following #history of chronic HCV infection #history of liver transplant -continue Prograf -GI following #Abdominal distension and ascites s/p therapeutic paracentesis -no nausea, vomiting or tenderness -continue supportive care -GI following -s/p paracentesis 12/31/18 4.1 lt #Dysphagia S/p PEG with PEG site cellulitis -s/p antibiotics per ID and GI -continue local wound care -tolerating tube feeds # FULL CODE Subjective Date patient seen: Jan 21, 2019 Time patient seen: 12:26 ROS Limited/Unobtainable: Yes Cardiovascular: Denies: chest pain Respiratory: Denies: cough Gastrointestinal/Abdominal: Denies: abdomen distended, abdominal pain Allergies: Coded Allergies: CEPHALEXIN (Unverified Allergy, Unknown, 02/24/14) SULFAMETHOXAZOLE (Unverified Allergy, Unknown, 02/24/14) TRIMETHOPRIM (Unverified Allergy, Unknown, 02/24/14) Subjective Medicine follow up for acute resp failure, PAD, right heel infected DFU, ESRD, anasarca secondary to hypoalbuminemia, right IJ DVT. S/p 4 liter paracentesis and 2 liter thoracentesis. No new issues overnight. No new issues per nursing. Objective Last 24 Hour Vital Signs Date Time Temp Pulse Resp B/P (MAP) Pulse Ox O2 Delivery O2 Flow Rate FiO2 01/21/19 13:34 84 24 40 01/21/19 11:30 99 01/21/19 11:05 81 25 40 01/21/19 09:33 114 142/98 01/21/19 08:40 79 25 40 01/21/19 08:00 Mechanical Ventilator 01/21/19 08:00 96.6 82 24 142/98 (113) 99 01/21/19 08:00 40 01/21/19 07:54 83 01/21/19 07:05 72 23 40 01/21/19 05:03 83 24 40 01/21/19 04:00 Mechanical Ventilator 01/21/19 04:00 85 01/21/19 04:00 98.0 83 22 160/72 (101) 100 01/21/19 04:00 40 01/21/19 03:27 83 28 40 01/21/19 01:29 85 25 40 01/21/19 00:00 Mechanical Ventilator 01/21/19 00:00 40 01/21/19 00:00 98.0 82 27 166/76 (106) 99 01/21/19 00:00 86 01/20/19 22:58 82 22 40 01/20/19 21:52 89 157/74 01/20/19 21:30 157/74 (101) 01/20/19 21:25 84 28 40 01/20/19 20:00 40 01/20/19 20:00 99.2 82 27 191/95 (127) 100 01/20/19 20:00 81 01/20/19 20:00 Mechanical Ventilator 01/20/19 19:29 83 21 40 01/20/19 17:39 125/83 (97) 01/20/19 16:30 81 30 40 01/20/19 16:00 96.8 98 24 100 01/20/19 16:00 Mechanical Ventilator 01/20/19 16:00 40 01/20/19 16:00 80 01/20/19 14:30 79 29 40 01/20/19 14:30 99 Intake and Output 01/20/19 01/21/19 19:00 07:00 Intake Total 465 ml 535 ml Balance 465 ml 535 ml Free Water 135 ml 205 ml Tube Feeding 330 ml 330 ml # Bowel Movements 1 Height (Feet): 5 Height (Inches): 4.00 Weight (Pounds): 221 General Appearance: no apparent distress, alert Neck: normal alignment Cardiovascular: normal rate, regular rhythm Respiratory/Chest: lungs clear, normal breath sounds Abdomen: non tender, soft Dennis Branham MD Jan 21, 2019 14:04
[2019-01-21 16:00] VITALS: BP 130/72
--- NOTE | 2019-01-21 16:46 | Pulmonology Progress Note ---
Assessment/Plan Assessment/Plan 1. Resp failure, hypercapnic 2. End-stage renal disease, on dialysis, status post multiple upper extremity vascular procedures. 3. Coronary artery bypass surgery. 4. Diabetes. 5. Dysphonia, tongue swelling, resolved; s/p trach 6. Trapped R lung with hydropneumothorax PLAN: tolerated weaning on IMV/PSV only 1 hr CXR with trapped lung, stable no further thoracentesis disc w RN continue to wean as tolerated stable for subacute Subjective ROS Limited/Unobtainable: Yes Constitutional: Reports: no symptoms Allergies: Coded Allergies: CEPHALEXIN (Unverified Allergy, Unknown, 02/24/14) SULFAMETHOXAZOLE (Unverified Allergy, Unknown, 02/24/14) TRIMETHOPRIM (Unverified Allergy, Unknown, 02/24/14) Objective Last 24 Hour Vital Signs Date Time Temp Pulse Resp B/P (MAP) Pulse Ox O2 Delivery O2 Flow Rate FiO2 01/21/19 16:00 81 01/21/19 16:00 Mechanical Ventilator 01/21/19 15:22 81 23 40 01/21/19 13:34 84 24 40 01/21/19 12:00 Mechanical Ventilator 01/21/19 11:52 82 01/21/19 11:30 99 01/21/19 11:05 81 25 40 01/21/19 09:33 114 142/98 01/21/19 08:40 79 25 40 01/21/19 08:00 Mechanical Ventilator 01/21/19 08:00 96.6 82 24 142/98 (113) 99 01/21/19 08:00 40 01/21/19 07:54 83 01/21/19 07:05 72 23 40 01/21/19 05:03 83 24 40 01/21/19 04:00 Mechanical Ventilator 01/21/19 04:00 85 01/21/19 04:00 98.0 83 22 160/72 (101) 100 01/21/19 04:00 40 01/21/19 03:27 83 28 40 01/21/19 01:29 85 25 40 01/21/19 00:00 Mechanical Ventilator 01/21/19 00:00 40 01/21/19 00:00 98.0 82 27 166/76 (106) 99 01/21/19 00:00 86 01/20/19 22:58 82 22 40 01/20/19 21:52 89 157/74 01/20/19 21:30 157/74 (101) 01/20/19 21:25 84 28 40 01/20/19 20:00 40 01/20/19 20:00 99.2 82 27 191/95 (127) 100 01/20/19 20:00 81 01/20/19 20:00 Mechanical Ventilator 01/20/19 19:29 83 21 40 01/20/19 17:39 125/83 (97) Intake and Output 01/20/19 01/21/19 19:00 07:00 Intake Total 465 ml 535 ml Balance 465 ml 535 ml Free Water 135 ml 205 ml Tube Feeding 330 ml 330 ml # Bowel Movements 1 Objective trach on vent General Appearance: no acute distress HEENT: anicteric Respiratory/Chest: decreased breath sounds Cardiovascular: normal rate Current Medications Medications (Trade) Dose Ordered Sig/Aleks Route PRN Reason Start Time Stop Time Status Last Admin Dose Admin Apixaban (Eliquis) 2.5 mg BID GT 01/01/19 21:00 01/31/19 20:59 01/21/19 09:33 Aspirin (ASA) 81 mg DAILY PEG 01/19/19 09:00 02/18/19 08:59 01/21/19 09:32 Atorvastatin Calcium (Lipitor) 10 mg BEDTIME GT 01/18/19 21:00 02/17/19 20:59 01/20/19 21:52 Carvedilol (Coreg) 3.125 mg EVERY 12 HOURS PEG 01/18/19 21:00 02/17/19 20:59 01/21/19 09:33 Clotrimazole (Lotrimin) 1 applic DAILY TOPIC 01/08/19 18:00 02/07/19 17:59 01/21/19 09:38 Collagenase (Santyl) 1 applic DAILY TOPIC 12/29/18 09:00 01/28/19 08:59 01/21/19 09:38 Dextrose (Dextrose 50%) 25 ml Q30M PRN IV Hypoglycemia 12/31/18 23:00 01/30/19 22:59 Dextrose (Dextrose 50%) 50 ml Q30M PRN IV Hypoglycemia 12/31/18 23:00 01/30/19 22:59 Docusate Sodium (Colace) 100 mg TWICE A DAY GT 01/18/19 18:00 7/3/19 17:59 01/20/19 08:55 Epoetin Vini (Epoetin Vini(ESRD on dialysis)) 10,000 unit FRI-FRI-FRI SUBQ 01/06/19 21:00 02/05/19 20:59 01/20/19 22:09 Escitalopram Oxalate (Lexapro) 20 mg DAILY GT 01/05/19 09:00 02/04/19 08:59 01/21/19 09:32 Hydralazine HCl (Apresoline) 25 mg Q4H PRN GT bp over 160 syst 01/06/19 15:00 02/05/19 14:59 Ibuprofen (Advil) 400 mg TIDPRN PRN ORAL For Pain 01/18/19 11:30 02/17/19 11:29 01/20/19 21:53 Insulin Aspart (NovoLOG) EVERY 6 HOURS SUBQ 01/01/19 00:00 01/31/19 00:00 01/21/19 12:14 Lansoprazole (Prevacid) 30 mg DAILY GT 01/16/19 09:00 02/15/19 08:59 01/21/19 09:33 Loperamide HCl (Imodium) 2 mg Q6H PRN GT Diarrhea 01/07/19 11:00 02/06/19 10:59 01/16/19 04:24 Tacrolimus (Prograf) 2 mg MoWeFr@0000,1200 ORAL 12/28/18 00:00 01/27/19 00:00 01/20/19 11:43 Tacrolimus (Prograf) 2 mg SuTuThSa@0900,2100 ORAL 12/26/18 21:00 01/25/19 20:59 01/21/19 09:33 Saroj Mendoza MD Jan 21, 2019 16:46
--- NOTE | 2019-01-21 17:23 | Infectious Diseases Prog Note ---
Assessment/Plan Problems: (1) Diarrhea Assessment & Plan: improved, with no infectious etiology so far , and negative stool for C diff toxin , and no pathogens on stool culture , use laxatives as needed , monitor clinically , encourage hydration (2) Foot ulcer Assessment & Plan: with MRSA grew out of it in the past, S/P vancomycin treatment with HD for two weeks, had vascular eval with revascularization to the right leg , S/P ulcer resection by chemistry instructor . deep ulcer culture grew MRSA and E.coli with diphtheroids , possible colonization , with no evidence of active infection as per discussion with podiatry , no need to be started on antibiotics for now , will continue to monitor clinically and make recommendations as necessary . bone scan ruled out osteomyelitis of the heel before, couldn't do an MRI since on the vent . continue local wound care as per chemistry instructor . (3) Thrush, oral Assessment & Plan: continue local nystatin as needed , S/P micafungin for three weeks empirically (4) HCV antibody positive Assessment & Plan: no evidence of active infection, with undetectable viral load , suspect due to previous infection , cleared, S/P liver transplant . (5) DM (diabetes mellitus) Assessment & Plan: recommend tight glycemic control to keep blood glucose between 100-140 (6) CHF (congestive heart failure) Assessment & Plan: on HD , renal is following, monitor daily weight , S/P multiple thoracentesis (7) Severe tongue swelling Assessment & Plan: improving , s/p tracheostomy to protect his airway since respiratory status worsened . now improving, pulmonary is following (8) Pleural effusion Assessment & Plan: recurrent on the right, with lung collapse , S/P thoracentesis X 3 now with removal of 2.3 liters of clear fluids on 12/31/18 . await fluids culture and gram stain, with PH and Glucose level . PREVIOUS culture were negative with negative cytology. pulmonary is following (9) Ascites Assessment & Plan: S/P paracentesis with removal of 4.1 liters of fluids, culture so far is negative Assessment/Plan will continue to monitor patient on daily basis and make recommendations as necessary since he is high risk for recurrent infection Subjective Constitutional: Reports: no symptoms HEENT: Reports: no symptoms Respiratory: Reports: no symptoms Breasts: Reports: no symptoms Cardiovascular: Reports: no symptoms Gastrointestinal/Abdominal: Reports: no symptoms Genitourinary: Reports: no symptoms Neurologic: Reports: no symptoms Psychiatric: Reports: no symptoms Skin: Reports: no symptoms Endocrine: Reports: no symptoms Hematologic: Reports: no symptoms Musculoskeletal: Reports: no symptoms Allergies: Coded Allergies: CEPHALEXIN (Unverified Allergy, Unknown, 02/24/14) SULFAMETHOXAZOLE (Unverified Allergy, Unknown, 02/24/14) TRIMETHOPRIM (Unverified Allergy, Unknown, 02/24/14) Subjective he was comfortable, lying in bed, awake and responsive, no fever or chills, no significant secretions from the trach , no SOB . has left heel with wound VAC in place, but no draining coming out . no diarrhea . Objective Vital Signs Last 24 Hour Vital Signs Date Time Temp Pulse Resp B/P (MAP) Pulse Ox O2 Delivery O2 Flow Rate FiO2 01/21/19 16:00 40 01/21/19 16:00 97.9 80 24 130/72 (91) 100 01/21/19 16:00 81 01/21/19 16:00 Mechanical Ventilator 01/21/19 15:22 81 23 40 01/21/19 13:34 84 24 40 01/21/19 12:00 40 01/21/19 12:00 97.5 82 26 116/96 (103) 100 01/21/19 12:00 Mechanical Ventilator 01/21/19 11:52 82 01/21/19 11:30 99 01/21/19 11:05 81 25 40 01/21/19 09:33 114 142/98 01/21/19 08:40 79 25 40 01/21/19 08:00 Mechanical Ventilator 01/21/19 08:00 96.6 82 24 142/98 (113) 99 01/21/19 08:00 40 01/21/19 07:54 83 01/21/19 07:05 72 23 40 01/21/19 05:03 83 24 40 01/21/19 04:00 Mechanical Ventilator 01/21/19 04:00 85 01/21/19 04:00 98.0 83 22 160/72 (101) 100 01/21/19 04:00 40 01/21/19 03:27 83 28 40 01/21/19 01:29 85 25 40 01/21/19 00:00 Mechanical Ventilator 01/21/19 00:00 40 01/21/19 00:00 98.0 82 27 166/76 (106) 99 01/21/19 00:00 86 01/20/19 22:58 82 22 40 01/20/19 21:52 89 157/74 01/20/19 21:30 157/74 (101) 01/20/19 21:25 84 28 40 01/20/19 20:00 40 01/20/19 20:00 99.2 82 27 191/95 (127) 100 01/20/19 20:00 81 01/20/19 20:00 Mechanical Ventilator 01/20/19 19:29 83 21 40 01/20/19 17:39 125/83 (97) Height (Feet): 5 Height (Inches): 4.00 Weight (Pounds): 221 General Appearance: WD/WN, no acute distress HEENT: normocephalic, atraumatic, anicteric, mucous membranes moist, PERRL Respiratory/Chest: chest wall non-tender, lungs clear, normal breath sounds, no respiratory distress, no accessory muscle use Cardiovascular: normal peripheral pulses, normal rate, regular rhythm, no gallop/murmur, no JVD Abdomen: normal bowel sounds, soft, non tender, no organomegaly, non distended , no mass, no scars Genitourinary: normal external genitalia Extremities: no cyanosis, no clubbing Skin: no rash, no lesions, no ulcers 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: internal affairs investigator 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 normal, no motor/sensory deficits, alert, responsive Lymphatic: no neck adenopathy, no groin adenopathy Musculoskeletal: normal muscle bulk, no effusion Current Medications Medications (Trade) Dose Ordered Sig/Aleks Route PRN Reason Start Time Stop Time Status Last Admin Dose Admin Apixaban (Eliquis) 2.5 mg BID GT 01/01/19 21:00 01/31/19 20:59 01/21/19 09:33 Aspirin (ASA) 81 mg DAILY PEG 01/19/19 09:00 02/18/19 08:59 01/21/19 09:32 Atorvastatin Calcium (Lipitor) 10 mg BEDTIME GT 01/18/19 21:00 02/17/19 20:59 01/20/19 21:52 Carvedilol (Coreg) 3.125 mg EVERY 12 HOURS PEG 01/18/19 21:00 02/17/19 20:59 01/21/19 09:33 Clotrimazole (Lotrimin) 1 applic DAILY TOPIC 01/08/19 18:00 02/07/19 17:59 01/21/19 09:38 Collagenase (Santyl) 1 applic DAILY TOPIC 12/29/18 09:00 01/28/19 08:59 01/21/19 09:38 Dextrose (Dextrose 50%) 25 ml Q30M PRN IV Hypoglycemia 12/31/18 23:00 01/30/19 22:59 Dextrose (Dextrose 50%) 50 ml Q30M PRN IV Hypoglycemia 12/31/18 23:00 01/30/19 22:59 Docusate Sodium (Colace) 100 mg TWICE A DAY GT 01/18/19 18:00 02/17/19 17:59 01/20/19 08:55 Epoetin Vini (Epoetin Vini(ESRD on dialysis)) 10,000 unit FRI-FRI-FRI SUBQ 01/06/19 21:00 02/05/19 20:59 01/20/19 22:09 Escitalopram Oxalate (Lexapro) 20 mg DAILY GT 01/05/19 09:00 02/04/19 08:59 01/21/19 09:32 Hydralazine HCl (Apresoline) 25 mg Q4H PRN GT bp over 160 syst 01/06/19 15:00 02/05/19 14:59 Ibuprofen (Advil) 400 mg TIDPRN PRN ORAL For Pain 01/18/19 11:30 02/17/19 11:29 01/20/19 21:53 Insulin Aspart (NovoLOG) EVERY 6 HOURS SUBQ 01/01/19 00:00 01/31/19 00:00 01/21/19 12:14 Lansoprazole (Prevacid) 30 mg DAILY GT 01/16/19 09:00 02/15/19 08:59 01/21/19 09:33 Loperamide HCl (Imodium) 2 mg Q6H PRN GT Diarrhea 01/07/19 11:00 02/06/19 10:59 01/16/19 04:24 Tacrolimus (Prograf) 2 mg MoWeFr@0000,1200 ORAL 12/28/18 00:00 01/27/19 00:00 01/20/19 11:43 Tacrolimus (Prograf) 2 mg SuTuThSa@0900,2100 ORAL 12/26/18 21:00 01/25/19 20:59 01/21/19 09:33 Francois Landis M.D. Jan 21, 2019 17:23
--- NOTE | 2019-01-21 18:44 | Neurology Progress Note ---
Interim History Interim History Interim History Mr. Restrepo feels well. His is headache free. He is being weaned off the ventilator and is comfortable. He continues to be more alert. His mood is fair. He is in fair spirits. The right heel is less painful - and is healing well. The right upper extremity is less swollen and less painful. He has been able to sleep better. He is still artificially ventilated. He feels that his strength is stable. The mind is clearer. He denies any new neurological symptoms. He is still worried about his hearing. He had PT today. He had a bedside swallowing study on 01/18/19. Review of Systems Neuro Review of Systems Benign. Objective Physical Exam Last Vital Signs Date Time Temp Pulse Resp B/P (MAP) Pulse Ox O2 Delivery O2 Flow Rate FiO2 01/21/19 17:05 84 25 40 01/21/19 16:00 97.9 130/72 (91) 100 01/21/19 16:00 Mechanical Ventilator Neurologic Exam Objective PHYSICAL EXAMINATION: GENERAL: He is a well-developed and well-nourished, pleasant gentleman, lying in bed, connected to a ventilator via a tracheostomy. HEAD: Normocephalic and atraumatic. EENT: Examination benign. NECK: No neck rigidity was observed. He did have a tracheostomy. NEUROLOGICAL EXAMINATION: MENTAL STATUS EXAMINATION: He was awake and alert. He was oriented to person, place and time. He was able to recall 3/3 words immediately and was able to remember them in 1 and 3 minutes. He was able to remember presidents [employer] through Mak [employer]. His mathematical skills were fair. His visuospatial function was preserved. SPEECH: Could not be tested, but he was able to mouth words relatively well. LANGUAGE: He was able to comprehend and express himself relatively well. CRANIAL NERVES EXAMINATION: II: The visual mckeon were intact to confrontation testing. III, IV & : The external ocular movements were full and the pupils 3 mm in diameter, equal, round, regular, and reactive sluggishly to light. V: He had normal facial sensations, and the temporales, masseters, and pterygoids functioned normally. VII: He had normal facial expressions and no facial asymmetry. VIII: Hearing was decreased bilaterally with worse hearing on the left side compared to the right. IX: The palate moved symmetrically on phonation. X: Could not be tested. XI: The sternocleidomastoids and trapezii functioned normally. XII: The tongue was in the midline without any fasciculations or atrophy. MOTOR SYSTEM: The tone was normal in all four extremities. Examination of muscle mass revealed generalized muscle wasting. Examination of power revealed G 5/5 power except for G 4+/5 power in the iliopsoas muscles bilaterally. SENSORY EXAMINATION: He had intact sensations to light touch. Other sensory modalities could not be tested adequately. REFLEXES: 1+ and bilaterally symmetrical at the biceps, triceps, brachioradialis , and knees, 0 at both ankles. The plantar responses were flexor bilaterally. COORDINATION: He performed well on [id number] testing. STANCE & GAIT: Were deferred. Impression/Recommendations Diagnostic Impression 1. Mr. Gregg Restrepo is a 69-year-old, right-handed, gentleman with past history of multiple medical problems including hypertension, diabetes mellitus, end-stage renal disease for which he is hemodialysis dependent, prior episodes of sepsis, and prior episodes of encephalopathy, who was admitted to [facility] on October 31, 2018. Following that, he has had a stormy hospital course including pneumonia and sepsis, right foot infection, respiratory failure for which he has needed tracheostomy and in addition he has exhibited an alteration in his mental state with some waxing and waning of his mental state. 2. He feels well. feels well. His is headache free. He is being weaned off the ventilator and is comfortable. He continues to be more alert. His mood is fair. He is in fair spirits. The right heel is less painful - and is healing well. The right upper extremity is less swollen and less painful. He has been able to sleep better. He is still artificially ventilated. He feels that his strength is stable. The mind is clearer. He denies any new neurological symptoms. He is still worried about his hearing. He had PT today. He had a bedside swallowing study on 01/18/19. 3. On neurological examination, at this time, he is fully oriented, his recent memory is normal. He has minimally impaired higher cognitive function. He is able to comprehend and express himself well. He does have mild G 4+/5 weakness in the iliopsoas muscles bilaterally. He had globally diminished deep tendon reflexes with loss of ankle jerks, but no definite focal or lateralizing neurological findings. 4. His latest laboratory data on my initial evaluation revealed that he was anemic with a hemoglobin of 10.8 G. His last blood gas performed on 11/14/2018 revealed that he had a pCO2 elevated at 56.4 with a normal pO2 of 88.3 and normal pH of 7.37. His latest chemistry panel revealed that he was mildly hyponatremic with a sodium of 130, and had a chloride of 90. The BUN was elevated at 75, creatinine elevated at 7.4, glucose elevated at 156, Hemoglobin A1c elevated at 6.9%, Alkaline phosphatase elevated at 131, and ProBNP greater than 35,000. His last B12 level on 11/07/2018 was 723. His last folate on was 18.6. His last TSH on 12/06/2018 was 4.82, which is minimally elevated. 5. The CT scan of the brain performed on 11/10/2018 was benign for acute intracranial pathology. 6. The EEG done on 12/08/18 revealed left temporal dysfunction. 7. The patient's history and neurological examination are most consistent with mild multifactorial encephalopathy, which apparently waxes and wanes, but no definite focal neurological dysfunction. His encephalopathy is stable. 8. He tells me that he had a brain bleed many years ago. I did review his imaging done at [facility] a few years ago and he had closed head injuries with subarachnoid and subdural blood in the past. 9. His mood has improved. 10. There has never been a doubt regarding his ability to make decisions regarding his medical care. 11. He is worried about his hearing. 12. As per his speech pathologists, they will continue to follow him. Recommendations 1. Continue present management. 2. Continue to correct the patient's toxic metabolic imbalances. 3. Mobilize with PT/OT. 4. Consider ENT evaluation for hearing loss. 5. Observe. Pantera Cool M.D., M.S.P.H. Pantera Cool MD Jan 21, 2019 18:44
[2019-01-21 19:41] VITALS: BP 100/45
[2019-01-22 00:02] VITALS: BP 98/85
[2019-01-22 04:00] VITALS: BP 101/58
--- NOTE | 2019-01-22 05:30 | Progress Note ---
DATE: 01/21/2019 SUBJECTIVE: The patient is doing well. No behavior issues. His hearing is improving. The patient overall is getting better and improving still depressed and has anxiety his medical condition. MENTAL STATUS EXAMINATION: The patient is alert and oriented x3. On vent. Mood is depressed. Affect is constricted, congruent with mood. Thought process is linear. Thought content, no suicidal or homicidal ideations. ASSESSMENT: Stable. PLAN: 1. The patient will be continued with current medication. 2. Provide the patient with reality orientation and supportive therapy. 3. We will continue to provide with reality orientation and supportive therapy. Jeffrey Lala M.D. DR: GLORIA JOB#: [id number] CC:
[2019-01-22] MEDS: NovoLOG Insulin Flexpen SUBQ SCH ×3 (05:35→17:31)
--- NOTE | 2019-01-22 06:57 | Hematology/Onc Progress Note ---
Assessment/Plan Assessment/Plan Assessment/Plan Assessment and Recs: # Anemia of chronic disease due to underlying chronic medical issues, range has been 8-11, ferritin is 633, tibc is low --> Pt refused 01/21/19 am lab draw labs are pending for today. --> No evidence of hemolysis is noted, peripheral smear has been reviewed. --> Epogen with HD 3x/wk --> Medications have been reviewed --> evaluate with Gi team prn --> transfuse if hgb is < 7 (will trend CBC daily) --> hgb trend 11.2-->10.9-->10.8-->10.7-->10.2-->9.7-->9.7-->8.5-->9-->9.2-->8.4 -->7.7-->8.8-->9.1-->8.6-->8.3-->8.9 --> s/p transfusion on 01/06 # Failure to thrive is likely related to poor overall status, poor functional status --> GT++ --> with multiple decub ulcerations that are noted, seen by id/surgery --> s/p trach as well --> cea is wnl # Acute non-occlusive dvt, right extremity ultrasound (acute non-occlusive DVT in internal jugular) --> currently is on eliquis 2.5mg po bid --> do not recommend a SVC filter --> given prior bleeding risk, hold off on heparin gtt --> vasc surgeon is aware, seek recs # Coagulopathy likely secondary to decreased Vitk dependent cofactors (high INR , PT) --> monitor closely for any evidence of bleeding. Currently is on eliquis --> VIT K on prn basis sq can be administered --> recently has improved inr 1.2-->1.1-->1.2-->1.1-->1.1 # Acute respiratory failure is now s/p trach to vent --> as per surgery recs # Ground glass opacities present on imaging of lung --> with pleural effusions, s/p drainage at this time --> no evidence for malignancy is noted --> as per pulm/id # Pleural effusion --> s/p thoracentesis, s/p paracentesis 12/31 --> no evidence of malignancy -->01/14 cxr: Interstitial edema, small left pleural effusion # Hyperkalemia --> kayxelate on prn basis per renal --> monitor K # Renal failure --> per renal recs, appreciated --> getting hd as per schedule # Altered level of consciousness --> currently as per baseline --> neuro eval prn # PAD off heparin gtt and now on eliquis --> per vasc and cards --> 12/22 s/p right leg angiogram with intervention --> on eliquis, continue # Gt tube cellulitis, on topical abx as per id around site The timing of this note does not necessarily reflect the time of the patient was seen. Greatly appreciate consultation! Subjective ROS Limited/Unobtainable: Yes Hematologic/Lymphatic: Reports: anemia Allergies: Coded Allergies: CEPHALEXIN (Unverified Allergy, Unknown, 02/24/14) SULFAMETHOXAZOLE (Unverified Allergy, Unknown, 02/24/14) TRIMETHOPRIM (Unverified Allergy, Unknown, 02/24/14) Subjective 11/30: comfortable, on abx, no complaints, on t-piece 12/01: to have hd done potentially tomorrow, is more alert/awake 12/02: no major bleeding, hgb remains approx 11, no changes 12/03: no events, breathing mildly better, hgb is improved 12/04: on vent/trach, no major changes, sr ekg 12/10: small amount of secretions, on trach/vent, no issues otherwise 12/11: no major issues, no complaints, labs reviewed, no sig changes 12/13: no events to report, no fevers or chills, awaiting placement 12/14: no changes, no major events to report, no fevers or chills 12/15: pending placement, getting gt feeds and hd as per renal 12/16: labs have been reviewed, cbc noted, no changes 12/17: no events, no fevers, no cp, hgb remains stable 12/18: restarted on heparin gtt, seen by pulm, cards 12/20: continues to be on heparin gtt, no bleeding reported, no f/c 12/21: hd for today, no fevers or chils, off hep gtt on eliquis 12/22: to get hd tomorrow, today is s/p right leg angiogram with intervention 12/23: hgb remins stable, no fevers or chills reported 12/24: no events, no bleeding, vitals reviewed, cbc stable 12/25: no events, no bleeding, on vent, hgb 9 12/27: no changes, no f/c, no night swearts, seen with other providers 12/28: right extremity ultrasound (acute non-occlusive DVT in internal jugular, on eliquis 12/29: no events, no night sweats, seen by gi, no bleeding 12/30: cbc has been reviewed, no f/c, no night sweats reported 12/31: no events, eliquis is on hold cbc has been reviewed, bp elevated 01/01: no fevers or chills, cbc reviewed, hgb 9.3, getting HD 01/02: no events noted, getting norco for pain, hgb stable 01/04: not events to report, no bleeding, refusing ivl at this time, cbc reviewed 01/05: no fevers or chills noted, s/p trach/vent, no f/c, no chills noted 01/06: no events, to get 1 unit prbc today, renal seen, on abx 01/07: hd for tomorrow, seen by renal, no events, cbc reviewed 01/08: getting Hd today, seen by renal, no major events, in sr 01/10: no events to report, to get hd tomorrow, hgb stable 01/11: on vent/trach, gtube, tolerating treatment well, hd today 01/12: remains nonverbal, stable, on vent/trach, no fc 01/13: no events noted, cbc has been reviewed 01/14: thora and para fluid still neg for malignancy, no bleeding 01/15: Pt examined at bedside. No acute events. Pt refusing IV access per nursing per nursing team. 01/17: Pt is awake and alert. Pt in stable condition. Hgb trending down: 8.3 will continue to monitor 01/18: Pt complain of abdominal pain and DIAZ. Hgb trend 8.3-->8.9 01/19: no events, cbc has been reviewed, hgb is stable today 01/20: Awake and alert, able to follow commands. Remains on vent. 01/21: Patient awake in bed. Trach to vent. Pt refused am lab draw. 01/22: labs are pending at this time, pt remains on vent Subjective Allergies: Coded Allergies: CEPHALEXIN (Unverified Allergy, Unknown, 02/24/14) SULFAMETHOXAZOLE (Unverified Allergy, Unknown, 02/24/14) TRIMETHOPRIM (Unverified Allergy, Unknown, 02/24/14) Objective Objective Current Medications Medications (Trade) Dose Ordered Sig/Aleks Route PRN Reason Start Time Stop Time Status Last Admin Dose Admin Apixaban (Eliquis) 2.5 mg BID GT 01/01/19 21:00 01/31/19 20:59 01/21/19 18:25 Aspirin (ASA) 81 mg DAILY PEG 01/19/19 09:00 02/18/19 08:59 01/21/19 09:32 Atorvastatin Calcium (Lipitor) 10 mg BEDTIME GT 01/18/19 21:00 02/17/19 20:59 01/21/19 21:08 Carvedilol (Coreg) 3.125 mg EVERY 12 HOURS PEG 01/18/19 21:00 02/17/19 20:59 01/21/19 09:33 Clotrimazole (Lotrimin) 1 applic DAILY TOPIC 01/08/19 18:00 02/07/19 17:59 01/21/19 09:38 Collagenase (Santyl) 1 applic DAILY TOPIC 12/29/18 09:00 01/28/19 08:59 01/21/19 09:38 Dextrose (Dextrose 50%) 25 ml Q30M PRN IV Hypoglycemia 12/31/18 23:00 01/30/19 22:59 Dextrose (Dextrose 50%) 50 ml Q30M PRN IV Hypoglycemia 12/31/18 23:00 01/30/19 22:59 Docusate Sodium (Colace) 100 mg TWICE A DAY GT 01/18/19 18:00 02/17/19 17:59 01/20/19 08:55 Epoetin Vini (Epoetin Vini(ESRD on dialysis)) 10,000 unit FRI-FRI-FRI SUBQ 01/06/19 21:00 02/05/19 20:59 01/20/19 22:09 Escitalopram Oxalate (Lexapro) 20 mg DAILY GT 01/05/19 09:00 02/04/19 08:59 01/21/19 09:32 Hydralazine HCl (Apresoline) 25 mg Q4H PRN GT bp over 160 syst 01/06/19 15:00 02/05/19 14:59 Ibuprofen (Advil) 400 mg TIDPRN PRN ORAL For Pain 01/18/19 11:30 02/17/19 11:29 01/22/19 05:32 Insulin Aspart (NovoLOG) EVERY 6 HOURS SUBQ 01/01/19 00:00 01/31/19 00:00 01/22/19 05:35 Lansoprazole (Prevacid) 30 mg DAILY GT 01/16/19 09:00 02/15/19 08:59 01/21/19 09:33 Loperamide HCl (Imodium) 2 mg Q6H PRN GT Diarrhea 01/07/19 11:00 02/06/19 10:59 01/16/19 04:24 Tacrolimus (Prograf) 2 mg MoWeFr@0000,1200 ORAL 12/28/18 00:00 01/27/19 00:00 01/21/19 23:40 Tacrolimus (Prograf) 2 mg SuTuThSa@0900,2100 ORAL 12/26/18 21:00 01/25/19 20:59 01/21/19 21:09 Last 24 Hour Vital Signs Date Time Temp Pulse Resp B/P (MAP) Pulse Ox O2 Delivery O2 Flow Rate FiO2 01/22/19 06:47 84 24 40 40 01/22/19 06:02 97.2 01/22/19 05:26 88 24 40 40 01/22/19 04:00 97.6 71 23 101/58 (72) 99 01/22/19 04:00 40 01/22/19 04:00 Mechanical Ventilator 01/22/19 04:00 71 01/22/19 02:59 85 24 40 40 01/22/19 01:10 52 27 40 40 01/22/19 00:02 97.2 80 24 98/85 (89) 99 01/22/19 00:00 Mechanical Ventilator 01/21/19 23:37 77 01/21/19 22:58 82 25 40 40 01/21/19 21:03 78 24 40 40 01/21/19 21:00 78 100/45 01/21/19 20:00 79 01/21/19 20:00 40 01/21/19 20:00 Mechanical Ventilator 01/21/19 19:41 97.8 80 22 100/45 (63) 98 01/21/19 18:54 80 25 40 40 01/21/19 17:05 84 25 40 01/21/19 16:00 40 01/21/19 16:00 97.9 80 24 130/72 (91) 100 01/21/19 16:00 81 01/21/19 16:00 Mechanical Ventilator 01/21/19 15:22 81 23 40 01/21/19 13:34 84 24 40 01/21/19 12:00 40 01/21/19 12:00 97.5 82 26 116/96 (103) 100 01/21/19 12:00 Mechanical Ventilator 01/21/19 11:52 82 01/21/19 11:30 99 01/21/19 11:05 81 25 40 01/21/19 09:33 114 142/98 01/21/19 08:40 79 25 40 01/21/19 08:00 Mechanical Ventilator 01/21/19 08:00 96.6 82 24 142/98 (113) 99 01/21/19 08:00 40 01/21/19 07:54 83 01/21/19 07:05 72 23 40 01/21/19 05:03 83 24 40 01/21/19 04:00 Mechanical Ventilator 01/21/19 04:00 85 01/21/19 04:00 98.0 83 22 160/72 (101) 100 01/21/19 04:00 40 01/21/19 03:27 83 28 40 01/21/19 01:29 85 25 40 01/21/19 00:00 Mechanical Ventilator 01/21/19 00:00 40 01/21/19 00:00 98.0 82 27 166/76 (106) 99 01/21/19 00:00 86 01/20/19 22:58 82 22 40 01/20/19 21:52 89 157/74 01/20/19 21:30 157/74 (101) 01/20/19 21:25 84 28 40 01/20/19 20:00 40 01/20/19 20:00 99.2 82 27 191/95 (127) 100 01/20/19 20:00 81 01/20/19 20:00 Mechanical Ventilator 01/20/19 19:29 83 21 40 01/20/19 17:39 125/83 (97) 01/20/19 16:30 81 30 40 01/20/19 16:00 96.8 98 24 100 01/20/19 16:00 Mechanical Ventilator 01/20/19 16:00 40 01/20/19 16:00 80 01/20/19 14:30 79 29 40 01/20/19 14:30 99 01/20/19 13:10 75 30 40 01/20/19 12:00 85 01/20/19 12:00 40 01/20/19 12:00 Mechanical Ventilator 01/20/19 12:00 97.2 73 26 166/89 (114) 100 01/20/19 11:05 88 32 40 01/20/19 09:00 40 01/20/19 09:00 78 30 40 01/20/19 08:55 73 95/47 01/20/19 08:00 Mechanical Ventilator 01/20/19 08:00 72 01/20/19 08:00 97.7 73 26 95/47 (63) 100 01/20/19 07:23 80 28 40 Intake and Output 01/21/19 01/22/19 19:00 07:00 Intake Total 660 ml 380 ml Balance 660 ml 380 ml Free Water 60 ml 50 ml Tube Feeding 540 ml 330 ml Other 60 ml # Bowel Movements 2 3 Height (Feet): 5 Height (Inches): 4.00 Weight (Pounds): 223 Objective PE General Appearance: No acute distress. Lines, tubes and drains: peripheral HEENT: EOMI, ++ thrush, tonsils swollen ++trach on vent Neck: normal inspection Respiratory/Chest: decreased breath sounds, accessory muscle use. VENT++ Cardiovascular/Chest: tachycardia Abdomen: soft, no organomegaly, no mass, ++ peg Extremities: other Skin Exam: warm/dry, rash Neurologic: alert, responsive Whitney Young FIELD KILN BURNER Jan 22, 2019 06:57
[2019-01-22 08:00] VITALS: BP 110/61
--- NOTE | 2019-01-22 09:03 | Cardiology Progress Note ---
Assessment/Plan Status: stable Assessment/Plan Assessment/Plan Assessment/Plan 1. Troponin leak with no chest pain. Hx of CABG. Due to renal failure. On Coreg 6.25 mg bid, aspirin and Lipitor 2. S/P CABG - outpatient stress test 3. Nonsustained ventricular tachycardia. Hx of old AK and CABG. EF 55%. No Syncope, monitor electrolytes 4. Congestive heart failure. On hemodialysis 5. End-stage renal disease, on hemodialysis per Dr. Stevens 6. Status post right sided Medtronic dual chamber pacemaker with Nl Fx. 7. Right foot ulcer. Antibiotic per Dr. Landis. FU by Dr. Huizar 8. History of liver transplant on Prograf 9. Respiratory failure, s/p Trach 10. Pleural effusion. 11. Dysphagia, S/P PEG Awaiting transfer to SNF Subjective Cardiovascular: Reports: no symptoms Respiratory: Reports: no symptoms Gastrointestinal/Abdominal: Reports: no symptoms Genitourinary: Reports: no symptoms Subjective COVERAGE FOR TOLU[employer] no acute events, awaiting transfer to SNF Objective Last 24 Hour Vital Signs Date Time Temp Pulse Resp B/P (MAP) Pulse Ox O2 Delivery O2 Flow Rate FiO2 01/22/19 06:47 84 24 40 40 01/22/19 06:02 97.2 01/22/19 05:26 88 24 40 40 01/22/19 04:00 97.6 71 23 101/58 (72) 99 01/22/19 04:00 40 01/22/19 04:00 Mechanical Ventilator 01/22/19 04:00 71 01/22/19 02:59 85 24 40 40 01/22/19 01:10 52 27 40 40 01/22/19 00:02 97.2 80 24 98/85 (89) 99 01/22/19 00:00 Mechanical Ventilator 01/21/19 23:37 77 01/21/19 22:58 82 25 40 40 01/21/19 21:03 78 24 40 40 01/21/19 21:00 78 100/45 01/21/19 20:00 79 01/21/19 20:00 40 01/21/19 20:00 Mechanical Ventilator 01/21/19 19:41 97.8 80 22 100/45 (63) 98 01/21/19 18:54 80 25 40 40 01/21/19 17:05 84 25 40 01/21/19 16:00 40 6/6/19 16:00 97.9 80 24 130/72 (91) 100 01/21/19 16:00 81 01/21/19 16:00 Mechanical Ventilator 01/21/19 15:22 81 23 40 01/21/19 13:34 84 24 40 01/21/19 12:00 40 01/21/19 12:00 97.5 82 26 116/96 (103) 100 01/21/19 12:00 Mechanical Ventilator 01/21/19 11:52 82 01/21/19 11:30 99 01/21/19 11:05 81 25 40 01/21/19 09:33 114 142/98 General Appearance: no apparent distress, on vent EENT: PERRL/EOMI, normal ENT inspection, TMs normal, pharynx normal Neck: non-tender, normal alignment, supple, normal inspection, no JVD Rhythm: NSR Cardiovascular: normal peripheral pulses, normal rate, regular rhythm Respiratory/Chest: chest wall non-tender, lungs clear Abdomen: normal bowel sounds, non tender, soft Extremities: normal range of motion, non-tender 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
--- NOTE | 2019-01-22 09:51 | General Progress Note ---
Assessment/Plan Problem List: (1) Transplant ICD Codes: Z94.9 - Transplanted organ and tissue status, unspecified SNOMED: 292834214 (2) HTN (hypertension) ICD Codes: I10 - Essential (primary) hypertension SNOMED: 39967595 (3) Pacemaker ICD Codes: Z95.0 - Presence of cardiac pacemaker SNOMED: 551654053 (4) CHF (congestive heart failure) ICD Codes: I50.9 - Heart failure, unspecified SNOMED: 78955449 (5) DM (diabetes mellitus) ICD Codes: E11.9 - Type 2 diabetes mellitus without complications SNOMED: 21851203 (6) Foot ulcer ICD Codes: L97.509 - Non-pressure chronic ulcer of other part of unspecified foot with unspecified severity SNOMED: 86420994 Qualifiers: Qualified Codes: L97.511 - Non-pressure chronic ulcer of other part of right foot limited to breakdown of skin (7) ESRD (end stage renal disease) on dialysis ICD Codes: N18.6 - End stage renal disease; Z99.2 - Dependence on renal dialysis SNOMED: 340667878 Status: stable Assessment/Plan: History of liver transplant, currently on Prograf History of cholecystectomy status post tracheostomy and PEG Infected G-tube site, fu ID recs C. difficile negative x 2 would care cx >> GRAM NEGATIVE BACILLUS CT AP reviewed, Moderate to large right pleural effusion. Moderate Ascites. s/p Paracentesis yielding 4.1 yield, r/o SBP >> negative for malignant cells Status post right thoracentesis yielding 2.1 L >> negative for malignant cells Continue G-tube feedings GT site care BID/prn topical abx around GT site per ID HD per nephro cont tacrolimus prn transfusions ppi zofran prn Imodium prn, Lomotil for persistent diarrhea follow labs supportive care outpatient Hep C tx, pending RNA PCR fu tacrolimus levels monitor LFTS Lomotil prn repeat swallow eval ordered Subjective ROS Limited/Unobtainable: Yes Allergies: Coded Allergies: CEPHALEXIN (Unverified Allergy, Unknown, 02/24/14) SULFAMETHOXAZOLE (Unverified Allergy, Unknown, 02/24/14) TRIMETHOPRIM (Unverified Allergy, Unknown, 02/24/14) Subjective he pulled his NGT again Objective Last 24 Hour Vital Signs Date Time Temp Pulse Resp B/P (MAP) Pulse Ox O2 Delivery O2 Flow Rate FiO2 01/22/19 09:29 85 27 40 01/22/19 06:47 84 24 40 40 01/22/19 06:02 97.2 01/22/19 05:26 88 24 40 40 01/22/19 04:00 97.6 71 23 101/58 (72) 99 01/22/19 04:00 40 01/22/19 04:00 Mechanical Ventilator 01/22/19 04:00 71 01/22/19 02:59 85 24 40 40 01/22/19 01:10 52 27 40 40 01/22/19 00:02 97.2 80 24 98/85 (89) 99 01/22/19 00:00 Mechanical Ventilator 01/21/19 23:37 77 01/21/19 22:58 82 25 40 40 01/21/19 21:03 78 24 40 40 01/21/19 21:00 78 100/45 01/21/19 20:00 79 01/21/19 20:00 40 01/21/19 20:00 Mechanical Ventilator 01/21/19 19:41 97.8 80 22 100/45 (63) 98 01/21/19 18:54 80 25 40 40 01/21/19 17:05 84 25 40 01/21/19 16:00 40 01/21/19 16:00 97.9 80 24 130/72 (91) 100 01/21/19 16:00 81 01/21/19 16:00 Mechanical Ventilator 01/21/19 15:22 81 23 40 01/21/19 13:34 84 24 40 01/21/19 12:00 40 01/21/19 12:00 97.5 82 26 116/96 (103) 100 01/21/19 12:00 Mechanical Ventilator 01/21/19 11:52 82 01/21/19 11:30 99 01/21/19 11:05 81 25 40 Intake and Output 01/21/19 01/22/19 19:00 07:00 Intake Total 660 ml 460 ml Balance 660 ml 460 ml Free Water 60 ml 100 ml Tube Feeding 540 ml 360 ml Other 60 ml # Bowel Movements 2 3 Height (Feet): 5 Height (Inches): 4.00 Weight (Pounds): 223 General Appearance: no apparent distress EENT: normal ENT inspection Neck: supple Cardiovascular: normal rate Respiratory/Chest: decreased breath sounds Abdomen: normal bowel sounds, non tender, soft Extremities: non-tender Jorge Escalera MD Jan 22, 2019 09:51
[2019-01-22] MEDS: Eliquis 2.5mg tablet GT SCH ×2 (10:47→17:28)
[2019-01-22] MEDS: Docusate 100mg/10ml Liq GT SCH ×2 (10:48→17:27)
[2019-01-22] MEDS: Aspirin Baby 81mg PEG SCH (10:49)
--- NOTE | 2019-01-22 10:58 | General Progress Note ---
Assessment/Plan Status: stable Assessment/Plan: #Right heel diabetic foot ulcer without osteomyelitis #PAD #Right IJ DVT -seen by Podiatry and ID -s/p Vanco x 2 weeks during HD -continue Eliquis -Vascular Surgery and Hematology following #Acute Resp hypercapnic failure s/p tracheostomy #Angioedema #Large right pleural effusion # R side trapped lung -continue trach care -Remains vent-dependant, breathing trials ongoing -Right thoracentesis 01/01/19 with 2.3 lt removed. Post procedure CXR with R trapped lung. -Vent weaning #End-stage renal disease, on dialysis M-W- #RUE edema #Anasarca, ascites, scrotal edema, pleural effusion due to hypoalbuminemia -HD with UF per Nephrology -s/p PRBC transfusion during HD #Coronary artery disease -continue ASA, Coreg, atorvastatin -cardiology following #Type 2 DM -ISS #Acute metabolic encephalopathy -continue supportive care -Neurology following #history of chronic HCV infection #history of liver transplant -continue Prograf -GI following #Abdominal distension and ascites s/p therapeutic paracentesis -no nausea, vomiting or tenderness -continue supportive care -GI following -s/p paracentesis 12/31/18 4.1 lt #Dysphagia S/p PEG with PEG site cellulitis -s/p antibiotics per ID and GI -continue local wound care -tolerating tube feeds # FULL CODE Subjective Date patient seen: Jan 22, 2019 Time patient seen: 10:33 ROS Limited/Unobtainable: Yes Cardiovascular: Denies: chest pain Respiratory: Denies: cough Gastrointestinal/Abdominal: Denies: abdominal pain Allergies: Coded Allergies: CEPHALEXIN (Unverified Allergy, Unknown, 02/24/14) SULFAMETHOXAZOLE (Unverified Allergy, Unknown, 02/24/14) TRIMETHOPRIM (Unverified Allergy, Unknown, 02/24/14) Subjective Medicine follow up for acute resp failure, PAD, right heel infected DFU, ESRD, anasarca secondary to hypoalbuminemia, right IJ DVT. S/p 4 liter paracentesis and 2 liter thoracentesis. No new issues overnight. No new issues per RN Objective Last 24 Hour Vital Signs Date Time Temp Pulse Resp B/P (MAP) Pulse Ox O2 Delivery O2 Flow Rate FiO2 01/22/19 10:53 84 25 40 01/22/19 10:48 86 101/58 01/22/19 09:55 86 27 40 01/22/19 09:53 100 01/22/19 09:29 85 27 40 01/22/19 06:47 84 24 40 40 01/22/19 06:02 97.2 01/22/19 05:26 88 24 40 40 01/22/19 04:00 97.6 71 23 101/58 (72) 99 01/22/19 04:00 40 01/22/19 04:00 Mechanical Ventilator 01/22/19 04:00 71 01/22/19 02:59 85 24 40 40 01/22/19 01:10 52 27 40 40 01/22/19 00:02 97.2 80 24 98/85 (89) 99 01/22/19 00:00 Mechanical Ventilator 01/21/19 23:37 77 01/21/19 22:58 82 25 40 40 01/21/19 21:03 78 24 40 40 01/21/19 21:00 78 100/45 01/21/19 20:00 79 01/21/19 20:00 40 01/21/19 20:00 Mechanical Ventilator 01/21/19 19:41 97.8 80 22 100/45 (63) 98 01/21/19 18:54 80 25 40 40 01/21/19 17:05 84 25 40 01/21/19 16:00 40 01/21/19 16:00 97.9 80 24 130/72 (91) 100 01/21/19 16:00 81 01/21/19 16:00 Mechanical Ventilator 01/21/19 15:22 81 23 40 01/21/19 13:34 84 24 40 01/21/19 12:00 40 01/21/19 12:00 97.5 82 26 116/96 (103) 100 01/21/19 12:00 Mechanical Ventilator 01/21/19 11:52 82 01/21/19 11:30 99 01/21/19 11:05 81 25 40 Intake and Output 01/21/19 01/22/19 19:00 07:00 Intake Total 660 ml 460 ml Balance 660 ml 460 ml Free Water 60 ml 100 ml Tube Feeding 540 ml 360 ml Other 60 ml # Bowel Movements 2 3 Height (Feet): 5 Height (Inches): 4.00 Weight (Pounds): 223 General Appearance: alert Neck: supple Cardiovascular: normal rate, regular rhythm Respiratory/Chest: lungs clear, normal breath sounds Dennis Branham MD Jan 22, 2019 10:58
[2019-01-22 12:00] VITALS: BP 163/85
[2019-01-22 12:18] LABS: ALANINE AMINOTRANSFERASE 13 U/L (12-78); ALBUMIN 1.9 G/DL (3.4-5.0); ALBUMIN/GLOBULIN RATIO 0.4 (1.0-2.7); ALKALINE PHOSPHATASE 151 U/L (46-116); ANION GAP 10 mmol/L (5-15); ASPARTATE AMINO TRANSFERASE 17 U/L (15-37); BILIRUBIN,TOTAL 0.4 MG/DL (0.2-1.0); BLOOD UREA NITROGEN 71 mg/dL (7-18); CALCIUM 9.4 MG/DL (8.5-10.1); CARBON DIOXIDE 30 MMOL/L (21-32); CHLORIDE 91 MMOL/L (98-107); CREATININE 5.9 MG/DL (0.55-1.30); GAMMA GLUTAMYL TRANSPEPTIDASE 47 U/L (5-85); PHOSPHORUS 3.5 MG/DL (2.5-4.9); POTASSIUM 3.8 MMOL/L (3.5-5.1); SODIUM 131 MMOL/L (136-145)
--- NOTE | 2019-01-22 13:07 | Nephrology Progress Note ---
Assessment/Plan Problem List: (1) ESRD (end stage renal disease) on dialysis (2) Foot ulcer (3) CHF (congestive heart failure) Assessment: Ej Fx 20 % (4) Pacemaker (5) Acute respiratory failure Assessment: with Co2 retention (6) G-tube site cellulitis Assessment ESRD with high K and SOB on admit Foot ulcer, likely infected High Troponin likely NSTMI Pacer , Pleural effusion s/p CABGS s/p Liver transplant Plan dialysis 3 times weekly M W Fr or extra as needed labs before HD noted BP low- improved on midodrine per consultants, GI GT site infection, topical antibiotic Neuro note appreciated placement in process vascular esteban regarding heel ulcer per Dr Mcgill pain med change to dilaudid GT Now has tracheostomy and PEG Adjust BP meds add nitro paste TID Antibiotics by ID per cardio and ID Podiatry and Vascular surgical fu ? DC planning? Subjective ROS Limited/Unobtainable: No Objective Objective Last 24 Hour Vital Signs Date Time Temp Pulse Resp B/P (MAP) Pulse Ox O2 Delivery O2 Flow Rate FiO2 01/22/19 10:53 84 25 40 01/22/19 10:48 86 101/58 01/22/19 09:55 86 27 40 01/22/19 09:53 100 01/22/19 09:29 85 27 40 01/22/19 06:47 84 24 40 40 01/22/19 06:02 97.2 01/22/19 05:26 88 24 40 40 01/22/19 04:00 97.6 71 23 101/58 (72) 99 01/22/19 04:00 40 01/22/19 04:00 Mechanical Ventilator 01/22/19 04:00 71 01/22/19 02:59 85 24 40 40 01/22/19 01:10 52 27 40 40 01/22/19 00:02 97.2 80 24 98/85 (89) 99 01/22/19 00:00 Mechanical Ventilator 01/21/19 23:37 77 01/21/19 22:58 82 25 40 40 01/21/19 21:03 78 24 40 40 01/21/19 21:00 78 100/45 01/21/19 20:00 79 01/21/19 20:00 40 01/21/19 20:00 Mechanical Ventilator 01/21/19 19:41 97.8 80 22 100/45 (63) 98 01/21/19 18:54 80 25 40 40 01/21/19 17:05 84 25 40 01/21/19 16:00 40 01/21/19 16:00 97.9 80 24 130/72 (91) 100 01/21/19 16:00 81 01/21/19 16:00 Mechanical Ventilator 01/21/19 15:22 81 23 40 01/21/19 13:34 84 24 40 Intake and Output 01/21/19 01/22/19 19:00 07:00 Intake Total 660 ml 460 ml Balance 660 ml 460 ml Free Water 60 ml 100 ml Tube Feeding 540 ml 360 ml Other 60 ml # Bowel Movements 2 3 Laboratory Tests 01/22/19 11:20: Sodium Level 131L, Potassium Level 3.8, Chloride Level 91L, Carbon Dioxide Level 30, Anion Gap 10, Blood Urea Nitrogen 71H, Creatinine 5.9H, Estimat Glomerular Filtration Rate 9.6, Glucose Level 211H, Calcium Level 9.4, Phosphorus Level 3.5, Total Bilirubin 0.4, Gamma Glutamyl Transpeptidase 47, Aspartate Amino Transf (AST/SGOT) 17, Alanine Aminotransferase (ALT/SGPT) 13, Alkaline Phosphatase 151H, Total Protein 6.6, Albumin 1.9L, Globulin 4.7, Albumin/Globulin Ratio 0.4L Height (Feet): 5 Height (Inches): 4.00 Weight (Pounds): 223 EENT: other - trach Respiratory/Chest: decreased breath sounds Abdomen: other - PEG Objective no other change Nakul Stevens MD Jan 22, 2019 13:07
--- NOTE | 2019-01-22 14:33 | Infectious Diseases Prog Note ---
Assessment/Plan Problems: (1) Foot ulcer Assessment & Plan: with MRSA grew out of it in the past, S/P vancomycin treatment with HD for two weeks, had vascular eval with revascularization to the right leg , S/P ulcer resection by night supervisor . deep ulcer culture grew MRSA and E.coli with diphtheroids , possible colonization , with no evidence of active infection as per discussion with podiatry , no need to be started on antibiotics for now , will continue to monitor clinically and make recommendations as necessary . bone scan ruled out osteomyelitis of the heel before, couldn't do an MRI since on the vent . continue local wound care as per night supervisor . (2) Diarrhea Assessment & Plan: improved, with no infectious etiology so far , and negative stool for C diff toxin , and no pathogens on stool culture , use laxatives as needed , monitor clinically , encourage hydration (3) Thrush, oral Assessment & Plan: resolved with local nystatin as needed , S/P micafungin for three weeks empirically (4) HCV antibody positive Assessment & Plan: no evidence of active infection, with undetectable viral load , suspect due to previous infection , cleared, S/P liver transplant . (5) DM (diabetes mellitus) Assessment & Plan: recommend tight glycemic control to keep blood glucose between 100-140 (6) CHF (congestive heart failure) Assessment & Plan: on HD , renal is following, monitor daily weight , S/P multiple thoracentesis (7) Severe tongue swelling Assessment & Plan: improving , s/p tracheostomy to protect his airway since respiratory status worsened . now improving, pulmonary is following (8) Pleural effusion Assessment & Plan: recurrent on the right, with lung collapse , S/P thoracentesis X 3 now with removal of 2.3 liters of clear fluids on 12/31/18 . await fluids culture and gram stain, with PH and Glucose level . PREVIOUS culture were negative with negative cytology. pulmonary is following (9) Ascites Assessment & Plan: S/P paracentesis with removal of 4.1 liters of fluids, culture so far is negative Assessment/Plan will continue to monitor patient on daily basis and make recommendations as necessary since he is high risk for recurrent infection Subjective Constitutional: Reports: no symptoms HEENT: Reports: no symptoms Respiratory: Reports: no symptoms Breasts: Reports: no symptoms Cardiovascular: Reports: no symptoms Gastrointestinal/Abdominal: Reports: no symptoms Genitourinary: Reports: no symptoms Neurologic: Reports: no symptoms Psychiatric: Reports: no symptoms Skin: Reports: no symptoms Endocrine: Reports: no symptoms Hematologic: Reports: no symptoms Musculoskeletal: Reports: no symptoms Allergies: Coded Allergies: CEPHALEXIN (Unverified Allergy, Unknown, 02/24/14) SULFAMETHOXAZOLE (Unverified Allergy, Unknown, 02/24/14) TRIMETHOPRIM (Unverified Allergy, Unknown, 02/24/14) Subjective he was comfortable, lying in bed, awake and responsive, no fever or chills, no significant secretions from the trach , no SOB . has left heel with wound VAC in place, but no draining coming out . no diarrhea . Objective Vital Signs Last 24 Hour Vital Signs Date Time Temp Pulse Resp B/P (MAP) Pulse Ox O2 Delivery O2 Flow Rate FiO2 01/22/19 13:13 81 20 40 01/22/19 12:00 98.1 78 27 163/85 (111) 98 01/22/19 12:00 40 01/22/19 12:00 78 01/22/19 12:00 Mechanical Ventilator 01/22/19 10:53 84 25 40 01/22/19 10:48 86 101/58 01/22/19 09:55 86 27 40 01/22/19 09:53 100 01/22/19 09:29 85 27 40 01/22/19 08:00 40 01/22/19 08:00 98.0 72 24 110/61 (77) 100 01/22/19 08:00 Mechanical Ventilator 01/22/19 08:00 72 01/22/19 06:47 84 24 40 40 01/22/19 06:02 97.2 01/22/19 05:26 88 24 40 40 01/22/19 04:00 97.6 71 23 101/58 (72) 99 01/22/19 04:00 40 01/22/19 04:00 Mechanical Ventilator 01/22/19 04:00 71 01/22/19 02:59 85 24 40 40 01/22/19 01:10 52 27 40 40 01/22/19 00:02 97.2 80 24 98/85 (89) 99 01/22/19 00:00 Mechanical Ventilator 01/21/19 23:37 77 01/21/19 22:58 82 25 40 40 01/21/19 21:03 78 24 40 40 01/21/19 21:00 78 100/45 01/21/19 20:00 79 01/21/19 20:00 40 01/21/19 20:00 Mechanical Ventilator 01/21/19 19:41 97.8 80 22 100/45 (63) 98 01/21/19 18:54 80 25 40 40 01/21/19 17:05 84 25 40 01/21/19 16:00 40 01/21/19 16:00 97.9 80 24 130/72 (91) 100 01/21/19 16:00 81 01/21/19 16:00 Mechanical Ventilator 01/21/19 15:22 81 23 40 Height (Feet): 5 Height (Inches): 4.00 Weight (Pounds): 223 General Appearance: WD/WN, no acute distress HEENT: normocephalic, atraumatic, anicteric, mucous membranes moist, PERRL, EOMI, pharynx normal, supple, no JVD, status post trach Respiratory/Chest: chest wall non-tender, lungs clear, normal breath sounds, no respiratory distress, no accessory muscle use, decreased breath sounds, crackles/rales Cardiovascular: normal peripheral pulses, normal rate, regular rhythm, no gallop/murmur, no JVD Abdomen: normal bowel sounds, soft, non tender, no organomegaly, non distended , no mass Extremities: no cyanosis, no clubbing Skin: no rash, no lesions 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: alert, oriented x 3, responsive Lymphatic: no neck adenopathy, no groin adenopathy Musculoskeletal: normal muscle bulk Laboratory Tests Test 01/22/19 11:20 Sodium Level 131 MMOL/L (136-145) L Potassium Level 3.8 MMOL/L (3.5-5.1) Chloride Level 91 MMOL/L (98-107) L Carbon Dioxide Level 30 MMOL/L (21-32) Anion Gap 10 mmol/L (5-15) Blood Urea Nitrogen 71 mg/dL (7-18) H Creatinine 5.9 MG/DL (0.55-1.30) H Estimat Glomerular Filtration Rate 9.6 mL/min (>60) Glucose Level 211 MG/DL (74-106) H Calcium Level 9.4 MG/DL (8.5-10.1) Phosphorus Level 3.5 MG/DL (2.5-4.9) Total Bilirubin 0.4 MG/DL (0.2-1.0) Gamma Glutamyl Transpeptidase 47 U/L (5-85) Aspartate Amino Transf (AST/SGOT) 17 U/L (15-37) Alanine Aminotransferase (ALT/SGPT) 13 U/L (12-78) Alkaline Phosphatase 151 U/L (46-116) H Total Protein 6.6 G/DL (6.4-8.2) Albumin 1.9 G/DL (3.4-5.0) L Globulin 4.7 g/dL Albumin/Globulin Ratio 0.4 (1.0-2.7) L Current Medications Medications (Trade) Dose Ordered Sig/Aleks Route PRN Reason Start Time Stop Time Status Last Admin Dose Admin Apixaban (Eliquis) 2.5 mg BID GT 01/01/19 21:00 01/31/19 20:59 01/22/19 10:47 Aspirin (ASA) 81 mg DAILY PEG 01/19/19 09:00 02/18/19 08:59 01/22/19 10:49 Atorvastatin Calcium (Lipitor) 10 mg BEDTIME GT 01/18/19 21:00 02/17/19 20:59 01/21/19 21:08 Carvedilol (Coreg) 3.125 mg EVERY 12 HOURS PEG 01/18/19 21:00 02/17/19 20:59 01/22/19 10:48 Clotrimazole (Lotrimin) 1 applic DAILY TOPIC 01/08/19 18:00 02/07/19 17:59 01/22/19 10:46 Collagenase (Santyl) 1 applic DAILY TOPIC 12/29/18 09:00 01/28/19 08:59 01/22/19 10:46 Dextrose (Dextrose 50%) 25 ml Q30M PRN IV Hypoglycemia 12/31/18 23:00 01/30/19 22:59 Dextrose (Dextrose 50%) 50 ml Q30M PRN IV Hypoglycemia 12/31/18 23:00 01/30/19 22:59 Docusate Sodium (Colace) 100 mg TWICE A DAY GT 01/18/19 18:00 02/17/19 17:59 01/22/19 10:48 Epoetin Vini (Epoetin Vini(ESRD on dialysis)) 10,000 unit FRI SUBQ 01/06/19 21:00 02/05/19 20:59 01/20/19 22:09 Escitalopram Oxalate (Lexapro) 20 mg DAILY GT 01/05/19 09:00 02/04/19 08:59 01/22/19 10:47 Hydralazine HCl (Apresoline) 25 mg Q4H PRN GT bp over 160 syst 01/06/19 15:00 02/05/19 14:59 Ibuprofen (Advil) 400 mg TIDPRN PRN ORAL For Pain 01/18/19 11:30 02/17/19 11:29 01/22/19 05:32 Insulin Aspart (NovoLOG) EVERY 6 HOURS SUBQ 01/01/19 00:00 01/31/19 00:00 01/22/19 12:29 Lansoprazole (Prevacid) 30 mg DAILY GT 01/16/19 09:00 02/15/19 08:59 01/22/19 10:49 Loperamide HCl (Imodium) 2 mg Q6H PRN GT Diarrhea 01/07/19 11:00 02/06/19 10:59 01/16/19 04:24 Tacrolimus (Prograf) 2 mg MoWeFr@0000,1200 ORAL 12/28/18 00:00 01/27/19 00:00 01/21/19 23:40 Tacrolimus (Prograf) 2 mg SuTuThSa@0900,2100 ORAL 12/26/18 21:00 01/25/19 20:59 01/21/19 21:09 Francois Landis M.D. Jan 22, 2019 14:33
--- NOTE | 2019-01-22 15:11 | Neurology Progress Note ---
Interim History Interim History Interim History Mr. Restrepo feels well. He is being weaned off the ventilator and is comfortable. He continues to be alert. His mood is fair. He is in fair spirits. The right heel is more painful - but is healing well. The right upper extremity is still swollen but less painful. He has been able to sleep better. He is still artificially ventilated. He feels that his strength is stable. The mind is clear. He denies any new neurological symptoms. He is still worried about his hearing. He has had no PT today. Review of Systems Neuro Review of Systems Benign. Objective Physical Exam Last Vital Signs Date Time Temp Pulse Resp B/P (MAP) Pulse Ox O2 Delivery O2 Flow Rate FiO2 01/22/19 13:13 81 20 40 01/22/19 12:00 98.1 163/85 (111) 98 01/22/19 12:00 Mechanical Ventilator Laboratory Tests Test 01/22/19 11:20 Sodium Level 131 MMOL/L (136-145) L Potassium Level 3.8 MMOL/L (3.5-5.1) Chloride Level 91 MMOL/L (98-107) L Carbon Dioxide Level 30 MMOL/L (21-32) Anion Gap 10 mmol/L (5-15) Blood Urea Nitrogen 71 mg/dL (7-18) H Creatinine 5.9 MG/DL (0.55-1.30) H Estimat Glomerular Filtration Rate 9.6 mL/min (>60) Glucose Level 211 MG/DL (74-106) H Calcium Level 9.4 MG/DL (8.5-10.1) Phosphorus Level 3.5 MG/DL (2.5-4.9) Total Bilirubin 0.4 MG/DL (0.2-1.0) Gamma Glutamyl Transpeptidase 47 U/L (5-85) Aspartate Amino Transf (AST/SGOT) 17 U/L (15-37) Alanine Aminotransferase (ALT/SGPT) 13 U/L (12-78) Alkaline Phosphatase 151 U/L (46-116) H Total Protein 6.6 G/DL (6.4-8.2) Albumin 1.9 G/DL (3.4-5.0) L Globulin 4.7 g/dL Albumin/Globulin Ratio 0.4 (1.0-2.7) L Neurologic Exam Objective PHYSICAL EXAMINATION: GENERAL: He is a well-developed and well-nourished, pleasant gentleman, lying in bed, connected to a ventilator via a tracheostomy. HEAD: Normocephalic and atraumatic. EENT: Examination benign. NECK: No neck rigidity was observed. He did have a tracheostomy. NEUROLOGICAL EXAMINATION: MENTAL STATUS EXAMINATION: He was awake and alert. He was oriented to person, place and time. He was able to recall 3/3 words immediately and was able to remember them in 1 and 3 minutes. He was able to remember presidents Trump through Mak Keny. His mathematical skills were fair. His visuospatial function was preserved. SPEECH: Could not be tested, but he was able to mouth words relatively well. LANGUAGE: He was able to comprehend and express himself relatively well. CRANIAL NERVES EXAMINATION: II: The visual mckeon were intact to confrontation testing. III, IV & : The external ocular movements were full and the pupils 3 mm in diameter, equal, round, regular, and reactive sluggishly to light. V: He had normal facial sensations, and the temporales, masseters, and pterygoids functioned normally. VII: He had normal facial expressions and no facial asymmetry. VIII: Hearing was decreased bilaterally with worse hearing on the left side compared to the right. IX: The palate moved symmetrically on phonation. X: Could not be tested. XI: The sternocleidomastoids and trapezii functioned normally. XII: The tongue was in the midline without any fasciculations or atrophy. MOTOR SYSTEM: The tone was normal in all four extremities. Examination of muscle mass revealed generalized muscle wasting. Examination of power revealed G 5/5 power except for G 4+/5 power in the iliopsoas muscles bilaterally. SENSORY EXAMINATION: He had intact sensations to light touch. Other sensory modalities could not be tested adequately. REFLEXES: 1+ and bilaterally symmetrical at the biceps, triceps, brachioradialis , and knees, 0 at both ankles. The plantar responses were flexor bilaterally. COORDINATION: He performed well on [id number] testing. STANCE & GAIT: Were deferred. Impression/Recommendations Diagnostic Impression 1. Mr. Gregg Restrepo is a 69-year-old, right-handed, gentleman with past history of multiple medical problems including hypertension, diabetes mellitus, end-stage renal disease for which he is hemodialysis dependent, prior episodes of sepsis, and prior episodes of encephalopathy, who was admitted to [facility] on October 31, 2018. Following that, he has had a stormy hospital course including pneumonia and sepsis, right foot infection, respiratory failure for which he has needed tracheostomy and in addition he has exhibited an alteration in his mental state with some waxing and waning of his mental state. 2. He feels well. He is being weaned off the ventilator and is comfortable. He continues to be alert. His mood is fair. He is in fair spirits. The right heel is more painful - but is healing well. The right upper extremity is still swollen but less painful. He has been able to sleep better. He is still artificially ventilated. He feels that his strength is stable. The mind is clear. He denies any new neurological symptoms. He is still worried about his hearing. He has had no PT today. 3. On neurological examination, at this time, he is fully oriented, his recent memory is normal. He has minimally impaired higher cognitive function. He is able to comprehend and express himself well. He does have mild G 4+/5 weakness in the iliopsoas muscles bilaterally. He had globally diminished deep tendon reflexes with loss of ankle jerks, but no definite focal or lateralizing neurological findings. 4. His latest laboratory data on my initial evaluation revealed that he was anemic with a hemoglobin of 10.8 G. His last blood gas performed on 11/14/2018 revealed that he had a pCO2 elevated at 56.4 with a normal pO2 of 88.3 and normal pH of 7.37. His latest chemistry panel revealed that he was mildly hyponatremic with a sodium of 130, and had a chloride of 90. The BUN was elevated at 75, creatinine elevated at 7.4, glucose elevated at 156, Hemoglobin A1c elevated at 6.9%, Alkaline phosphatase elevated at 131, and ProBNP greater than 35,000. His last B12 level on 11/07/2018 was 723. His last folate on was 18.6. His last TSH on 12/06/2018 was 4.82, which is minimally elevated. 5. The CT scan of the brain performed on 11/10/2018 was benign for acute intracranial pathology. 6. The EEG done on 12/08/18 revealed left temporal dysfunction. 7. The patient's history and neurological examination are most consistent with mild multifactorial encephalopathy, which apparently waxes and wanes, but no definite focal neurological dysfunction. His encephalopathy is stable. 8. He tells me that he had a brain bleed many years ago. I did review his imaging done at [facility] a few years ago and he had closed head injuries with subarachnoid and subdural blood in the past. 9. His mood has improved. 10. There has never been a doubt regarding his ability to make decisions regarding his medical care. 11. He is worried about his hearing. 12. As per his speech pathologists, they will continue to follow him. Recommendations 1. Continue present management. 2. Continue to correct the patient's toxic metabolic imbalances. 3. Mobilize with PT/OT. 4. Consider ENT evaluation for hearing loss. 5. Observe. Pantera Cool M.D., M.S.P.H. Pantera Cool MD Jan 22, 2019 15:11
[2019-01-22 16:00] VITALS: BP 107/56
[2019-01-22 20:00] VITALS: BP 110/73
[2019-01-22] MEDS: Epoetin Alfa-EPBX(ESRD on dialysis)10,000 unit/ml vial SUBQ SCH (21:21)
[2019-01-23] VITALS: BP 105/66
[2019-01-23] MEDS: NovoLOG Insulin Flexpen SUBQ SCH ×4 (00:02→17:45)
[2019-01-23 04:00] VITALS: BP 119/66
--- NOTE | 2019-01-23 05:00 | Progress Note ---
DATE: 01/22/2019 SUBJECTIVE: The patient is still at baseline, participates more weaning off the vent. Sleep is adequate. Mood is dysphoric. Overall improving gradually. MENTAL STATUS EXAMINATION: The patient is alert and oriented x4. Mood is dysphoric. Affect is constricted, congruent with mood. Thought process is linear. Thought content, no suicidal or homicidal ideations. Memory is impaired. ASSESSMENT: 1. Major depressive disorder. 2. Anxiety disorder. PLAN: 1. We will continue the Celexa. 2. Continue Remeron. 3. Provide the patient with reality orientation and supportive therapy. 4. We discussed with the son. Jeffrey Lala M.D. DR: GLORIA JOB#: [id number] CC:
--- NOTE | 2019-01-23 07:14 | Cardiology Progress Note ---
Assessment/Plan Status: stable Assessment/Plan Assessment/Plan Assessment/Plan 1. Troponin leak with no chest pain. Hx of CABG. Due to renal failure. On Coreg 6.25 mg bid, aspirin and Lipitor 2. S/P CABG - outpatient stress test no chest pain currently 3. Nonsustained ventricular tachycardia. Hx of old NE and CABG. EF 55%. No Syncope, monitor and replace electrolytes 4. Congestive heart failure. On hemodialysis Currently euvolemic, no distress 5. End-stage renal disease, on hemodialysis per Dr. Stevens 6. Status post right sided Medtronic dual chamber pacemaker with Nl Fx. 7. Right foot ulcer. Antibiotic per Dr. Landis. FU by Dr. Huizar 8. History of liver transplant on Prograf 9. Respiratory failure, s/p Trach 10. Pleural effusion. 11. Dysphagia, S/P PEG Awaiting transfer to SNF Subjective Cardiovascular: Reports: no symptoms Respiratory: Reports: no symptoms Gastrointestinal/Abdominal: Reports: no symptoms Genitourinary: Reports: no symptoms Subjective COVERAGE FOR TOLUIE no acute events, no distress, vitals stable, awaiting transfer to SNF Objective Last 24 Hour Vital Signs Date Time Temp Pulse Resp B/P (MAP) Pulse Ox O2 Delivery O2 Flow Rate FiO2 01/23/19 05:30 82 23 40 01/23/19 04:00 Mechanical Ventilator 01/23/19 04:00 97.7 70 23 119/66 (83) 100 01/23/19 04:00 40 01/23/19 03:31 70 01/23/19 02:56 81 21 40 01/23/19 01:08 75 24 40 01/23/19 00:00 Mechanical Ventilator 01/23/19 00:00 97.6 76 25 105/66 (79) 95 01/22/19 23:51 40 01/22/19 23:31 74 01/22/19 23:09 79 21 40 01/22/19 21:22 74 110/73 01/22/19 21:05 81 22 40 01/22/19 20:00 Mechanical Ventilator 01/22/19 20:00 40 01/22/19 20:00 97.2 74 26 110/73 (85) 96 01/22/19 19:31 76 01/22/19 19:08 79 23 40 01/22/19 17:02 81 24 40 01/22/19 16:00 98.0 76 25 107/56 (73) 100 01/22/19 16:00 75 01/22/19 16:00 Mechanical Ventilator 01/22/19 16:00 40 01/22/19 15:39 83 22 40 01/22/19 13:13 81 20 40 01/22/19 12:00 98.1 78 27 163/85 (111) 98 01/22/19 12:00 40 01/22/19 12:00 78 01/22/19 12:00 Mechanical Ventilator 01/22/19 10:53 84 25 40 01/22/19 10:48 86 101/58 01/22/19 09:55 86 27 40 01/22/19 09:53 100 01/22/19 09:29 85 27 40 01/22/19 08:00 40 01/22/19 08:00 98.0 72 24 110/61 (77) 100 01/22/19 08:00 Mechanical Ventilator 01/22/19 08:00 72 General Appearance: alert, on vent EENT: PERRL/EOMI, normal ENT inspection, TMs normal, pharynx normal Neck: non-tender, normal alignment, supple, normal inspection, no JVD Rhythm: NSR Cardiovascular: normal peripheral pulses, normal rate Respiratory/Chest: chest wall non-tender, lungs clear Abdomen: normal bowel sounds, non tender, soft, no organomegaly, no mass Extremities: normal range of motion, non-tender 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 normal, no motor/sensory deficits Intake and Output 01/22/19 01/23/19 19:00 07:00 Intake Total 495 ml 605 ml Balance 495 ml 605 ml Free Water 125 ml 225 ml Tube Feeding 310 ml 380 ml Other 60 ml # Bowel Movements 6 Laboratory Tests Test 01/22/19 11:20 Sodium Level 131 MMOL/L (136-145) L Potassium Level 3.8 MMOL/L (3.5-5.1) Chloride Level 91 MMOL/L (98-107) L Carbon Dioxide Level 30 MMOL/L (21-32) Anion Gap 10 mmol/L (5-15) Blood Urea Nitrogen 71 mg/dL (7-18) H Creatinine 5.9 MG/DL (0.55-1.30) H Estimat Glomerular Filtration Rate 9.6 mL/min (>60) Glucose Level 211 MG/DL (74-106) H Calcium Level 9.4 MG/DL (8.5-10.1) Phosphorus Level 3.5 MG/DL (2.5-4.9) Total Bilirubin 0.4 MG/DL (0.2-1.0) Gamma Glutamyl Transpeptidase 47 U/L (5-85) Aspartate Amino Transf (AST/SGOT) 17 U/L (15-37) Alanine Aminotransferase (ALT/SGPT) 13 U/L (12-78) Alkaline Phosphatase 151 U/L (46-116) H Total Protein 6.6 G/DL (6.4-8.2) Albumin 1.9 G/DL (3.4-5.0) L Globulin 4.7 g/dL Albumin/Globulin Ratio 0.4 (1.0-2.7) L Dhruv Jin MD Jan 23, 2019 07:14
[2019-01-23 08:00] VITALS: BP 132/64
[2019-01-23] MEDS: Aspirin Baby 81mg PEG SCH (09:57)
[2019-01-23] MEDS: Docusate 100mg/10ml Liq GT SCH ×2 (09:57→17:42)
[2019-01-23] MEDS: Eliquis 2.5mg tablet GT SCH ×2 (09:58→17:42)
--- NOTE | 2019-01-23 11:40 | Neurology Progress Note ---
Interim History Interim History Interim History Mr. Restrepo feels well. He is being weaned off the ventilator and is comfortable. He is alert and bright. His mood is fair. He is in fair spirits. The right heel pain is about the same - but is healing well. The right upper extremity is still swollen but less painful. He has been able to sleep better. He is still artificially ventilated. He feels that his strength is stable. The mind is clear. He denies any new neurological symptoms. He is still worried about his hearing. He has had no PT today. Review of Systems Neuro Review of Systems Benign. Objective Physical Exam Last Vital Signs Date Time Temp Pulse Resp B/P (MAP) Pulse Ox O2 Delivery O2 Flow Rate FiO2 01/23/19 10:48 85 28 40 01/23/19 09:58 132/64 01/23/19 08:00 Mechanical Ventilator 01/23/19 08:00 97.0 100 Neurologic Exam Objective PHYSICAL EXAMINATION: GENERAL: He is a well-developed and well-nourished, pleasant gentleman, lying in bed, connected to a ventilator via a tracheostomy. HEAD: Normocephalic and atraumatic. EENT: Examination benign. NECK: No neck rigidity was observed. He did have a tracheostomy. NEUROLOGICAL EXAMINATION: MENTAL STATUS EXAMINATION: He was awake and alert. He was oriented to person, place and time. He was able to recall 3/3 words immediately and was able to remember them in 1 and 3 minutes. He was able to remember presidents Trump through Mak Keny. His mathematical skills were fair. His visuospatial function was preserved. SPEECH: Could not be tested, but he was able to mouth words relatively well. LANGUAGE: He was able to comprehend and express himself relatively well. CRANIAL NERVES EXAMINATION: II: The visual mckeon were intact to confrontation testing. III, IV & : The external ocular movements were full and the pupils 3 mm in diameter, equal, round, regular, and reactive sluggishly to light. V: He had normal facial sensations, and the temporales, masseters, and pterygoids functioned normally. VII: He had normal facial expressions and no facial asymmetry. VIII: Hearing was decreased bilaterally with worse hearing on the left side compared to the right. IX: The palate moved symmetrically on phonation. X: Could not be tested. XI: The sternocleidomastoids and trapezii functioned normally. XII: The tongue was in the midline without any fasciculations or atrophy. MOTOR SYSTEM: The tone was normal in all four extremities. Examination of muscle mass revealed generalized muscle wasting. Examination of power revealed G 5/5 power except for G 4+/5 power in the iliopsoas muscles bilaterally. SENSORY EXAMINATION: He had intact sensations to light touch. Other sensory modalities could not be tested adequately. REFLEXES: 1+ and bilaterally symmetrical at the biceps, triceps, brachioradialis , and knees, 0 at both ankles. The plantar responses were flexor bilaterally. COORDINATION: He performed well on [id number] testing. STANCE & GAIT: Were deferred. Impression/Recommendations Diagnostic Impression 1. Mr. Gregg Restrepo is a 69-year-old, right-handed, gentleman with past history of multiple medical problems including hypertension, diabetes mellitus, end-stage renal disease for which he is hemodialysis dependent, prior episodes of sepsis, and prior episodes of encephalopathy, who was admitted to [facility] on October 31, 2018. Following that, he has had a stormy hospital course including pneumonia and sepsis, right foot infection, respiratory failure for which he has needed tracheostomy and in addition he has exhibited an alteration in his mental state with some waxing and waning of his mental state. 2. He feels well. He is being weaned off the ventilator and is comfortable. He is alert and bright. His mood is fair. He is in fair spirits. The right heel pain is about the same - but is healing well. The right upper extremity is still swollen but less painful. He has been able to sleep better. He is still artificially ventilated. He feels that his strength is stable. The mind is clear. He denies any new neurological symptoms. He is still worried about his hearing. He has had no PT today. 3. On neurological examination, at this time, he is fully oriented, his recent memory is normal. He has minimally impaired higher cognitive function. He is able to comprehend and express himself well. He does have mild G 4+/5 weakness in the iliopsoas muscles bilaterally. He had globally diminished deep tendon reflexes with loss of ankle jerks, but no definite focal or lateralizing neurological findings. 4. His latest laboratory data on my initial evaluation revealed that he was anemic with a hemoglobin of 10.8 G. His last blood gas performed on 11/14/2018 revealed that he had a pCO2 elevated at 56.4 with a normal pO2 of 88.3 and normal pH of 7.37. His latest chemistry panel revealed that he was mildly hyponatremic with a sodium of 130, and had a chloride of 90. The BUN was elevated at 75, creatinine elevated at 7.4, glucose elevated at 156, Hemoglobin A1c elevated at 6.9%, Alkaline phosphatase elevated at 131, and ProBNP greater than 35,000. His last B12 level on 11/07/2018 was 723. His last folate on was 18.6. His last TSH on 12/06/2018 was 4.82, which is minimally elevated. 5. The CT scan of the brain performed on 11/10/2018 was benign for acute intracranial pathology. 6. The EEG done on 12/08/18 revealed left temporal dysfunction. 7. The patient's history and neurological examination are most consistent with mild multifactorial encephalopathy, which apparently waxes and wanes, but no definite focal neurological dysfunction. His encephalopathy is stable. 8. He tells me that he had a brain bleed many years ago. I did review his imaging done at [facility] a few years ago and he had closed head injuries with subarachnoid and subdural blood in the past. 9. His mood has improved. 10. There has never been a doubt regarding his ability to make decisions regarding his medical care. 11. He is worried about his hearing. 12. As per his speech pathologists, they will continue to follow him. Recommendations 1. Continue present management. 2. Continue to correct the patient's toxic metabolic imbalances. 3. Mobilize with PT/OT. 4. Consider ENT evaluation for hearing loss. 5. Observe. Pantera Cool M.D., M.S.P.H. Pantera Cool MD Jan 23, 2019 11:40
[2019-01-23 12:00] VITALS: BP 153/74
--- NOTE | 2019-01-23 12:08 | Nephrology Progress Note ---
Assessment/Plan Problem List: (1) ESRD (end stage renal disease) on dialysis (2) Foot ulcer (3) CHF (congestive heart failure) Assessment: Ej Fx 20 % (4) Pacemaker (5) Acute respiratory failure Assessment: with Co2 retention (6) G-tube site cellulitis Assessment ESRD with high K and SOB on admit Foot ulcer, likely infected High Troponin likely NSTMI Pacer , Pleural effusion s/p CABGS s/p Liver transplant Plan dialysis 3 times weekly M W Fr or extra as needed labs before HD noted BP low- improved on midodrine per consultants, GI GT site infection, topical antibiotic Neuro note appreciated placement in process vascular esteban regarding heel ulcer per Dr Mcgill pain med change to dilaudid GT Now has tracheostomy and PEG Adjust BP meds add nitro paste TID Antibiotics by ID per cardio and ID Podiatry and Vascular surgical fu ? DC planning? Subjective ROS Limited/Unobtainable: No Objective Objective Last 24 Hour Vital Signs Date Time Temp Pulse Resp B/P (MAP) Pulse Ox O2 Delivery O2 Flow Rate FiO2 01/23/19 10:48 85 28 40 01/23/19 10:15 100 01/23/19 10:15 72 30 40 01/23/19 09:58 72 132/64 01/23/19 09:25 71 23 40 01/23/19 08:03 40 01/23/19 08:00 Mechanical Ventilator 01/23/19 08:00 70 01/23/19 08:00 97.0 72 24 132/64 (86) 100 01/23/19 07:05 70 24 40 01/23/19 05:30 82 23 40 01/23/19 04:00 Mechanical Ventilator 01/23/19 04:00 97.7 70 23 119/66 (83) 100 01/23/19 04:00 40 01/23/19 03:31 70 01/23/19 02:56 81 21 40 01/23/19 01:08 75 24 40 01/23/19 00:00 Mechanical Ventilator 01/23/19 00:00 97.6 76 25 105/66 (79) 95 01/22/19 23:51 40 01/22/19 23:31 74 01/22/19 23:09 79 21 40 01/22/19 21:22 74 110/73 01/22/19 21:05 81 22 40 01/22/19 20:00 Mechanical Ventilator 01/22/19 20:00 40 01/22/19 20:00 97.2 74 26 110/73 (85) 96 01/22/19 19:31 76 01/22/19 19:08 79 23 40 01/22/19 17:02 81 24 40 01/22/19 16:00 98.0 76 25 107/56 (73) 100 01/22/19 16:00 75 01/22/19 16:00 Mechanical Ventilator 01/22/19 16:00 40 01/22/19 15:39 83 22 40 01/22/19 13:13 81 20 40 Intake and Output 01/22/19 01/23/19 19:00 07:00 Intake Total 3665 ml 605 ml Balance 3665 ml 605 ml Free Water 125 ml 225 ml Tube Feeding 420 ml 380 ml Hemodialysis 3000 ml Other 120 ml # Bowel Movements 6 Height (Feet): 5 Height (Inches): 4.00 Weight (Pounds): 213 EENT: other - vented Respiratory/Chest: decreased breath sounds Abdomen: distended, other - PEg Objective no other change Nakul Stevens MD Jan 23, 2019 12:08
--- NOTE | 2019-01-23 13:39 | Hematology/Onc Progress Note ---
Assessment/Plan Assessment/Plan Assessment and Recs: # Anemia of chronic disease due to underlying chronic medical issues, range has been 8-11, ferritin is 633, tibc is low --> Pt refused 01/21/19 am lab scott. --> No evidence of hemolysis is noted, peripheral smear has been reviewed. --> Epogen with HD 3x/wk --> Medications have been reviewed --> evaluate with Gi team prn --> transfuse if hgb is < 7 (will trend CBC daily) --> hgb trend 11.2-->10.9-->10.8-->10.7-->10.2-->9.7-->9.7-->8.5-->9-->9.2-->8.4 -->7.7-->8.8-->9.1-->8.6-->8.3-->8.9 --> s/p transfusion on 01/06 # Failure to thrive is likely related to poor overall status, poor functional status --> GT++ --> with multiple decub ulcerations that are noted, seen by id/surgery --> s/p trach as well --> cea is wnl # Acute non-occlusive dvt, right extremity ultrasound (acute non-occlusive DVT in internal jugular) --> currently is on eliquis 2.5mg po bid --> do not recommend a SVC filter --> given prior bleeding risk, hold off on heparin gtt --> vasc surgeon is aware, seek recs # Coagulopathy likely secondary to decreased Vitk dependent cofactors (high INR , PT) --> monitor closely for any evidence of bleeding. Currently is on eliquis --> VIT K on prn basis sq can be administered --> recently has improved inr 1.2-->1.1-->1.2-->1.1-->1.1 # Acute respiratory failure is now s/p trach to vent --> as per surgery recs # Ground glass opacities present on imaging of lung --> with pleural effusions, s/p drainage at this time --> no evidence for malignancy is noted --> as per pulm/id # Pleural effusion --> s/p thoracentesis, s/p paracentesis 12/31 --> no evidence of malignancy -->01/14 cxr: Interstitial edema, small left pleural effusion # Hyperkalemia --> kayxelate on prn basis per renal --> monitor K # Renal failure --> per renal recs, appreciated --> getting hd as per schedule 3x week # Altered level of consciousness --> currently as per baseline --> neuro eval prn # PAD off heparin gtt and now on eliquis --> per vasc and cards --> 12/22 s/p right leg angiogram with intervention --> on eliquis, continue # Gt tube cellulitis, on topical abx as per id around site The timing of this note does not necessarily reflect the time of the patient was seen. Greatly appreciate consultation! Subjective Allergies: Coded Allergies: CEPHALEXIN (Unverified Allergy, Unknown, 02/24/14) SULFAMETHOXAZOLE (Unverified Allergy, Unknown, 02/24/14) TRIMETHOPRIM (Unverified Allergy, Unknown, 02/24/14) Subjective 11/30: comfortable, on abx, no complaints, on t-piece 12/01: to have hd done potentially tomorrow, is more alert/awake 12/02: no major bleeding, hgb remains approx 11, no changes 12/03: no events, breathing mildly better, hgb is improved 12/04: on vent/trach, no major changes, sr ekg 12/10: small amount of secretions, on trach/vent, no issues otherwise 12/11: no major issues, no complaints, labs reviewed, no sig changes 12/13: no events to report, no fevers or chills, awaiting placement 12/14: no changes, no major events to report, no fevers or chills 12/15: pending placement, getting gt feeds and hd as per renal 12/16: labs have been reviewed, cbc noted, no changes 12/17: no events, no fevers, no cp, hgb remains stable 12/18: restarted on heparin gtt, seen by pulcamelia, cards 12/20: continues to be on heparin gtt, no bleeding reported, no f/c 12/21: hd for today, no fevers or chils, off hep gtt on eliquis 12/22: to get hd tomorrow, today is s/p right leg angiogram with intervention 12/23: hgb remins stable, no fevers or chills reported 12/24: no events, no bleeding, vitals reviewed, cbc stable 12/25: no events, no bleeding, on vent, hgb 9 12/27: no changes, no f/c, no night swearts, seen with other providers 12/28: right extremity ultrasound (acute non-occlusive DVT in internal jugular, on eliquis 12/29: no events, no night sweats, seen by gi, no bleeding 12/30: cbc has been reviewed, no f/c, no night sweats reported 12/31: no events, eliquis is on hold cbc has been reviewed, bp elevated 01/01: no fevers or chills, cbc reviewed, hgb 9.3, getting HD 01/02: no events noted, getting norco for pain, hgb stable 01/04: not events to report, no bleeding, refusing ivl at this time, cbc reviewed 01/05: no fevers or chills noted, s/p trach/vent, no f/c, no chills noted 01/06: no events, to get 1 unit prbc today, renal seen, on abx 01/07: hd for tomorrow, seen by renal, no events, cbc reviewed 01/08: getting Hd today, seen by renal, no major events, in sr 01/10: no events to report, to get hd tomorrow, hgb stable 01/11: on vent/trach, gtube, tolerating treatment well, hd today 01/12: remains nonverbal, stable, on vent/trach, no fc 01/13: no events noted, cbc has been reviewed 01/14: thora and para fluid still neg for malignancy, no bleeding 01/15: Pt examined at bedside. No acute events. Pt refusing IV access per nursing per nursing team. 01/17: Pt is awake and alert. Pt in stable condition. Hgb trending down: 8.3 will continue to monitor 01/18: Pt complain of abdominal pain and DIAZ. Hgb trend 8.3-->8.9 01/19: no events, cbc has been reviewed, hgb is stable today 01/20: Awake and alert, able to follow commands. Remains on vent. 01/21: Patient awake in bed. Trach to vent. Pt refused am lab draw. 01/22: no events, dc planning 01/23: no events, dc planning, on epogen and eliquis Objective Objective Current Medications Medications (Trade) Dose Ordered Sig/Aleks Route PRN Reason Start Time Stop Time Status Last Admin Dose Admin Apixaban (Eliquis) 2.5 mg BID GT 01/01/19 21:00 01/31/19 20:59 01/23/19 09:58 Aspirin (ASA) 81 mg DAILY PEG 01/19/19 09:00 02/18/19 08:59 01/23/19 09:57 Atorvastatin Calcium (Lipitor) 10 mg BEDTIME GT 01/18/19 21:00 02/17/19 20:59 01/22/19 21:23 Carvedilol (Coreg) 3.125 mg EVERY 12 HOURS PEG 01/18/19 21:00 02/17/19 20:59 01/23/19 09:58 Clotrimazole (Lotrimin) 1 applic DAILY TOPIC 01/08/19 18:00 02/07/19 17:59 01/23/19 10:03 Collagenase (Santyl) 1 applic DAILY TOPIC 12/29/18 09:00 01/28/19 08:59 01/23/19 10:04 Dextrose (Dextrose 50%) 25 ml Q30M PRN IV Hypoglycemia 12/31/18 23:00 01/30/19 22:59 Dextrose (Dextrose 50%) 50 ml Q30M PRN IV Hypoglycemia 12/31/18 23:00 01/30/19 22:59 Docusate Sodium (Colace) 100 mg TWICE A DAY GT 01/18/19 18:00 02/17/19 17:59 01/23/19 09:57 Epoetin Vini (Epoetin Vini(ESRD on dialysis)) 10,000 unit FRI-FRI-FRI SUBQ 01/06/19 21:00 02/05/19 20:59 01/22/19 21:21 Escitalopram Oxalate (Lexapro) 20 mg DAILY GT 01/05/19 09:00 02/04/19 08:59 01/23/19 09:57 Hydralazine HCl (Apresoline) 25 mg Q4H PRN GT bp over 160 syst 01/06/19 15:00 02/05/19 14:59 Ibuprofen (Advil) 400 mg TIDPRN PRN ORAL For Pain 01/18/19 11:30 02/17/19 11:29 01/22/19 21:23 Insulin Aspart (NovoLOG) EVERY 6 HOURS SUBQ 01/01/19 00:00 01/31/19 00:00 01/23/19 12:15 Lansoprazole (Prevacid) 30 mg DAILY GT 01/16/19 09:00 02/15/19 08:59 01/23/19 09:58 Loperamide HCl (Imodium) 2 mg Q6H PRN GT Diarrhea 01/07/19 11:00 02/06/19 10:59 01/16/19 04:24 Tacrolimus (Prograf) 2 mg MoWeFr@0000,1200 ORAL 12/28/18 00:00 01/27/19 00:00 01/22/19 14:28 Tacrolimus (Prograf) 2 mg SuTuThSa@0900,2100 ORAL 12/26/18 21:00 01/25/19 20:59 01/23/19 10:03 Last 24 Hour Vital Signs Date Time Temp Pulse Resp B/P (MAP) Pulse Ox O2 Delivery O2 Flow Rate FiO2 01/23/19 12:00 40 01/23/19 12:00 97.2 74 25 153/74 (100) 100 01/23/19 12:00 Mechanical Ventilator 01/23/19 12:00 70 01/23/19 10:48 85 28 40 01/23/19 10:15 100 01/23/19 10:15 72 30 40 01/23/19 09:58 72 132/64 01/23/19 09:25 71 23 40 01/23/19 08:03 40 01/23/19 08:00 Mechanical Ventilator 01/23/19 08:00 70 01/23/19 08:00 97.0 72 24 132/64 (86) 100 01/23/19 07:05 70 24 40 01/23/19 05:30 82 23 40 01/23/19 04:00 Mechanical Ventilator 01/23/19 04:00 97.7 70 23 119/66 (83) 100 01/23/19 04:00 40 01/23/19 03:31 70 01/23/19 02:56 81 21 40 01/23/19 01:08 75 24 40 01/23/19 00:00 Mechanical Ventilator 01/23/19 00:00 97.6 76 25 105/66 (79) 95 01/22/19 23:51 40 01/22/19 23:31 74 01/22/19 23:09 79 21 40 01/22/19 21:22 74 110/73 01/22/19 21:05 81 22 40 01/22/19 20:00 Mechanical Ventilator 01/22/19 20:00 40 01/22/19 20:00 97.2 74 26 110/73 (85) 96 01/22/19 19:31 76 01/22/19 19:08 79 23 40 01/22/19 17:02 81 24 40 01/22/19 16:00 98.0 76 25 107/56 (73) 100 01/22/19 16:00 75 01/22/19 16:00 Mechanical Ventilator 01/22/19 16:00 40 01/22/19 15:39 83 22 40 01/22/19 13:13 81 20 40 01/22/19 12:00 98.1 78 27 163/85 (111) 98 01/22/19 12:00 40 01/22/19 12:00 78 01/22/19 12:00 Mechanical Ventilator 01/22/19 10:53 84 25 40 01/22/19 10:48 86 101/58 01/22/19 09:55 86 27 40 01/22/19 09:53 100 01/22/19 09:29 85 27 40 01/22/19 08:00 40 01/22/19 08:00 98.0 72 24 110/61 (77) 100 01/22/19 08:00 Mechanical Ventilator 01/22/19 08:00 72 01/22/19 06:47 84 24 40 40 01/22/19 06:02 97.2 01/22/19 05:26 88 24 40 40 01/22/19 04:00 97.6 71 23 101/58 (72) 99 01/22/19 04:00 40 01/22/19 04:00 Mechanical Ventilator 01/22/19 04:00 71 01/22/19 02:59 85 24 40 40 01/22/19 01:10 52 27 40 40 01/22/19 00:02 97.2 80 24 98/85 (89) 99 01/22/19 00:00 Mechanical Ventilator 01/21/19 23:37 77 01/21/19 22:58 82 25 40 40 01/21/19 21:03 78 24 40 40 01/21/19 21:00 78 100/45 01/21/19 20:00 79 01/21/19 20:00 40 01/21/19 20:00 Mechanical Ventilator 01/21/19 19:41 97.8 80 22 100/45 (63) 98 01/21/19 18:54 80 25 40 40 01/21/19 17:05 84 25 40 01/21/19 16:00 40 01/21/19 16:00 97.9 80 24 130/72 (91) 100 01/21/19 16:00 81 01/21/19 16:00 Mechanical Ventilator 01/21/19 15:22 81 23 40 Intake and Output 01/22/19 01/23/19 19:00 07:00 Intake Total 3665 ml 605 ml Balance 3665 ml 605 ml Free Water 125 ml 225 ml Tube Feeding 420 ml 380 ml Hemodialysis 3000 ml Other 120 ml # Bowel Movements 6 Labs Test 01/22/19 11:20 Sodium Level 131 MMOL/L (136-145) Potassium Level 3.8 MMOL/L (3.5-5.1) Chloride Level 91 MMOL/L (98-107) Carbon Dioxide Level 30 MMOL/L (21-32) Anion Gap 10 mmol/L (5-15) Blood Urea Nitrogen 71 mg/dL (7-18) Creatinine 5.9 MG/DL (0.55-1.30) Estimat Glomerular Filtration Rate 9.6 mL/min (>60) Glucose Level 211 MG/DL (74-106) Calcium Level 9.4 MG/DL (8.5-10.1) Phosphorus Level 3.5 MG/DL (2.5-4.9) Total Bilirubin 0.4 MG/DL (0.2-1.0) Gamma Glutamyl Transpeptidase 47 U/L (5-85) Aspartate Amino Transf (AST/SGOT) 17 U/L (15-37) Alanine Aminotransferase (ALT/SGPT) 13 U/L (12-78) Alkaline Phosphatase 151 U/L (46-116) Total Protein 6.6 G/DL (6.4-8.2) Albumin 1.9 G/DL (3.4-5.0) Globulin 4.7 g/dL Albumin/Globulin Ratio 0.4 (1.0-2.7) Height (Feet): 5 Height (Inches): 4.00 Weight (Pounds): 213 Objective PE General Appearance: mild distress, moderate distress Lines, tubes and drains: peripheral HEENT: EOMI, ++ thrush, tonsils swollen ++trach Neck: normal inspection Respiratory/Chest: decreased breath sounds, accessory muscle use. VENT++ Cardiovascular/Chest: tachycardia Abdomen: soft, no organomegaly, no mass, ++ peg Extremities: other Skin Exam: warm/dry, rash Neurologic: alert, responsive Zacarias Khoury MD Jan 23, 2019 13:39
[2019-01-23 16:00] VITALS: BP 160/82
--- NOTE | 2019-01-23 16:32 | General Progress Note ---
Assessment/Plan Assessment/Plan: Status: stable Assessment/Plan: #Right heel diabetic foot ulcer without osteomyelitis #PAD #Right IJ DVT -seen by Podiatry and ID -s/p Vanco x 2 weeks during HD -continue Eliquis -Vascular Surgery and Hematology following #Acute Resp hypercapnic failure s/p tracheostomy #Angioedema #Large right pleural effusion # R side trapped lung -continue trach care -Remains vent-dependant, breathing trials ongoing -Right thoracentesis 01/01/19 with 2.3 lt removed. Post procedure CXR with R trapped lung. -Vent weaning per pulmonary #End-stage renal disease, on dialysis M-W- #RUE edema #Anasarca, ascites, scrotal edema, pleural effusion due to hypoalbuminemia -HD with UF per Nephrology -s/p PRBC transfusion during HD #Coronary artery disease -continue ASA, Coreg, atorvastatin -cardiology following #Type 2 DM -ISS #Acute metabolic encephalopathy -continue supportive care -Neurology following #history of chronic HCV infection #history of liver transplant -continue Prograf -GI following #Abdominal distension and ascites s/p therapeutic paracentesis -no nausea, vomiting or tenderness -continue supportive care -GI following -s/p paracentesis 12/31/18 4.1 lt #Dysphagia S/p PEG with PEG site cellulitis -s/p antibiotics per ID and GI -continue local wound care -tolerating tube feeds #Disposition -Pending SNF placement # FULL CODE Subjective Allergies: Coded Allergies: CEPHALEXIN (Unverified Allergy, Unknown, 02/24/14) SULFAMETHOXAZOLE (Unverified Allergy, Unknown, 02/24/14) TRIMETHOPRIM (Unverified Allergy, Unknown, 02/24/14) Subjective patient is s/p tracheostomy and PEG. 01/01 thoracentesis L side 2.3 lt 12/31 paracenthesis 4.1 lt 12/30 last weaning trial Objective Last 24 Hour Vital Signs Date Time Temp Pulse Resp B/P (MAP) Pulse Ox O2 Delivery O2 Flow Rate FiO2 01/23/19 16:14 40 01/23/19 16:00 Mechanical Ventilator 01/23/19 15:22 80 22 40 01/23/19 13:15 83 23 40 01/23/19 12:00 40 01/23/19 12:00 97.2 74 25 153/74 (100) 100 01/23/19 12:00 Mechanical Ventilator 01/23/19 12:00 70 01/23/19 10:48 85 28 40 01/23/19 10:15 100 01/23/19 10:15 72 30 40 01/23/19 09:58 72 132/64 01/23/19 09:25 71 23 40 01/23/19 08:03 40 01/23/19 08:00 Mechanical Ventilator 01/23/19 08:00 70 01/23/19 08:00 97.0 72 24 132/64 (86) 100 01/23/19 07:05 70 24 40 01/23/19 05:30 82 23 40 01/23/19 04:00 Mechanical Ventilator 01/23/19 04:00 97.7 70 23 119/66 (83) 100 01/23/19 04:00 40 01/23/19 03:31 70 01/23/19 02:56 81 21 40 01/23/19 01:08 75 24 40 01/23/19 00:00 Mechanical Ventilator 01/23/19 00:00 97.6 76 25 105/66 (79) 95 01/22/19 23:51 40 01/22/19 23:31 74 01/22/19 23:09 79 21 40 01/22/19 21:22 74 110/73 01/22/19 21:05 81 22 40 01/22/19 20:00 Mechanical Ventilator 01/22/19 20:00 40 01/22/19 20:00 97.2 74 26 110/73 (85) 96 01/22/19 19:31 76 01/22/19 19:08 79 23 40 01/22/19 17:02 81 24 40 Intake and Output 01/22/19 01/23/19 19:00 07:00 Intake Total 3665 ml 605 ml Balance 3665 ml 605 ml Free Water 125 ml 225 ml Tube Feeding 420 ml 380 ml Hemodialysis 3000 ml Other 120 ml # Bowel Movements 6 Height (Feet): 5 Height (Inches): 4.00 Weight (Pounds): 213 General Appearance: WD/WN EENT: PERRL/EOMI Cardiovascular: normal rate, regular rhythm Respiratory/Chest: chest wall non-tender, decreased breath sounds Abdomen: normal bowel sounds, non tender Extremities: slow capillary refill Edema: trace edema 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
[2019-01-23 20:00] VITALS: BP 122/76
--- NOTE | 2019-01-23 21:28 | Infectious Diseases Prog Note ---
Assessment/Plan Problems: (1) Foot ulcer Assessment & Plan: with MRSA grew out of it in the past, S/P vancomycin treatment with HD for two weeks, had vascular eval with revascularization to the right leg , S/P ulcer resection by offshore diver . deep ulcer culture grew MRSA and E.coli with diphtheroids , possible colonization , with no evidence of active infection as per discussion with podiatry , no need to be started on antibiotics for now , will continue to monitor clinically and make recommendations as necessary . bone scan ruled out osteomyelitis of the heel before, couldn't do an MRI since on the vent . continue local wound care as per offshore diver . (2) Diarrhea Assessment & Plan: improved, with no infectious etiology so far , and negative stool for C diff toxin , and no pathogens on stool culture , use laxatives as needed , monitor clinically , encourage hydration (3) Thrush, oral Assessment & Plan: resolved with local nystatin as needed , S/P micafungin for three weeks empirically (4) HCV antibody positive Assessment & Plan: no evidence of active infection, with undetectable viral load , suspect due to previous infection , cleared, S/P liver transplant . (5) DM (diabetes mellitus) Assessment & Plan: recommend tight glycemic control to keep blood glucose between 100-140 (6) CHF (congestive heart failure) Assessment & Plan: on HD , renal is following, monitor daily weight , S/P multiple thoracentesis (7) Severe tongue swelling Assessment & Plan: improving , s/p tracheostomy to protect his airway since respiratory status worsened . now improving, pulmonary is following (8) Pleural effusion Assessment & Plan: recurrent on the right, with lung collapse , S/P thoracentesis X 3 now with removal of 2.3 liters of clear fluids on 12/31/18 . await fluids culture and gram stain, with PH and Glucose level . PREVIOUS culture were negative with negative cytology. pulmonary is following (9) Ascites Assessment & Plan: S/P paracentesis with removal of 4.1 liters of fluids, culture so far is negative Assessment/Plan will continue to monitor patient on daily basis and make recommendations as necessary since he is high risk for recurrent infection Subjective Allergies: Coded Allergies: CEPHALEXIN (Unverified Allergy, Unknown, 02/24/14) SULFAMETHOXAZOLE (Unverified Allergy, Unknown, 02/24/14) TRIMETHOPRIM (Unverified Allergy, Unknown, 02/24/14) Subjective he was comfortable, lying in bed, awake and responsive, no fever or chills, no significant secretions from the trach , no SOB . has left heel with wound VAC in place, but no draining coming out . no diarrhea . Objective Vital Signs Last 24 Hour Vital Signs Date Time Temp Pulse Resp B/P (MAP) Pulse Ox O2 Delivery O2 Flow Rate FiO2 01/23/19 20:37 73 122/76 01/23/19 20:00 40 01/23/19 20:00 Mechanical Ventilator 01/23/19 20:00 97.5 73 25 122/76 (91) 95 01/23/19 20:00 73 01/23/19 18:48 82 24 40 01/23/19 17:00 79 25 40 01/23/19 16:14 40 01/23/19 16:00 73 01/23/19 16:00 98.5 72 25 160/82 (108) 100 01/23/19 16:00 Mechanical Ventilator 01/23/19 15:22 80 22 40 01/23/19 13:15 83 23 40 01/23/19 12:00 40 01/23/19 12:00 97.2 74 25 153/74 (100) 100 01/23/19 12:00 Mechanical Ventilator 01/23/19 12:00 70 01/23/19 10:48 85 28 40 01/23/19 10:15 100 01/23/19 10:15 72 30 40 01/23/19 09:58 72 132/64 01/23/19 09:25 71 23 40 01/23/19 08:03 40 01/23/19 08:00 Mechanical Ventilator 01/23/19 08:00 70 01/23/19 08:00 97.0 72 24 132/64 (86) 100 01/23/19 07:05 70 24 40 01/23/19 05:30 82 23 40 01/23/19 04:00 Mechanical Ventilator 01/23/19 04:00 97.7 70 23 119/66 (83) 100 01/23/19 04:00 40 01/23/19 03:31 70 01/23/19 02:56 81 21 40 01/23/19 01:08 75 24 40 01/23/19 00:00 Mechanical Ventilator 01/23/19 00:00 97.6 76 25 105/66 (79) 95 01/22/19 23:51 40 01/22/19 23:31 74 01/22/19 23:09 79 21 40 Height (Feet): 5 Height (Inches): 4.00 Weight (Pounds): 213 Current Medications Medications (Trade) Dose Ordered Sig/Aleks Route PRN Reason Start Time Stop Time Status Last Admin Dose Admin Apixaban (Eliquis) 2.5 mg BID GT 01/01/19 21:00 01/31/19 20:59 01/23/19 17:42 Aspirin (ASA) 81 mg DAILY PEG 01/19/19 09:00 02/18/19 08:59 01/23/19 09:57 Atorvastatin Calcium (Lipitor) 10 mg BEDTIME GT 01/18/19 21:00 02/17/19 20:59 01/23/19 20:37 Carvedilol (Coreg) 3.125 mg EVERY 12 HOURS PEG 01/18/19 21:00 02/17/19 20:59 01/23/19 20:37 Clotrimazole (Lotrimin) 1 applic DAILY TOPIC 01/08/19 18:00 02/07/19 17:59 01/23/19 10:03 Collagenase (Santyl) 1 applic DAILY TOPIC 12/29/18 09:00 01/28/19 08:59 01/23/19 10:04 Dextrose (Dextrose 50%) 25 ml Q30M PRN IV Hypoglycemia 12/31/18 23:00 01/30/19 22:59 Dextrose (Dextrose 50%) 50 ml Q30M PRN IV Hypoglycemia 12/31/18 23:00 01/30/19 22:59 Docusate Sodium (Colace) 100 mg TWICE A DAY GT 01/18/19 18:00 02/17/19 17:59 01/23/19 17:42 Epoetin Vini (Epoetin Vini(ESRD on dialysis)) 10,000 unit FRI-FRI-FRI SUBQ 01/06/19 21:00 02/05/19 20:59 01/22/19 21:21 Escitalopram Oxalate (Lexapro) 20 mg DAILY GT 01/05/19 09:00 02/04/19 08:59 01/23/19 09:57 Hydralazine HCl (Apresoline) 25 mg Q4H PRN GT bp over 160 syst 01/06/19 15:00 02/05/19 14:59 Ibuprofen (Advil) 400 mg TIDPRN PRN ORAL For Pain 01/18/19 11:30 02/17/19 11:29 01/22/19 21:23 Insulin Aspart (NovoLOG) EVERY 6 HOURS SUBQ 01/01/19 00:00 01/31/19 00:00 01/23/19 17:45 Lansoprazole (Prevacid) 30 mg DAILY GT 01/16/19 09:00 02/15/19 08:59 01/23/19 09:58 Loperamide HCl (Imodium) 2 mg Q6H PRN GT Diarrhea 01/07/19 11:00 02/06/19 10:59 01/16/19 04:24 Tacrolimus (Prograf) 2 mg MoWeFr@0000,1200 ORAL 12/28/18 00:00 01/27/19 00:00 01/22/19 14:28 Tacrolimus (Prograf) 2 mg SuTuThSa@0900,2100 ORAL 12/26/18 21:00 01/25/19 20:59 01/23/19 20:37 Francois Landis M.D. Jan 23, 2019 21:28
[2019-01-24] VITALS: BP 132/78
[2019-01-24] MEDS: NovoLOG Insulin Flexpen SUBQ SCH ×4 (00:05→17:49)
--- NOTE | 2019-01-24 01:15 | Progress Note ---
DATE: 01/23/2019 SUBJECTIVE: The patient is same. No changes since previous encounter. The patient is coping well with the current medical conditions. He has been cooperative. No behavior issues. Depressed, low energy. MENTAL STATUS EXAMINATION: The patient is alert and oriented to times, self, place, and situation. Mood is dysphoric. Affect is constricted. Congruent with mood. Thought process is concrete. Thought content, no suicidal or homicidal ideations. ASSESSMENT: 1. Major depressive disorder. 2. Anxiety disorder. PLAN: We will continue current medication. Provide the patient with reality orientation and supportive therapy. Jeffrey Lala M.D. DR: KATE JOB#: [id number] CC:
[2019-01-24 04:00] VITALS: BP 101/74
--- NOTE | 2019-01-24 07:22 | Hematology/Onc Progress Note ---
Assessment/Plan Assessment/Plan Assessment/Plan Assessment and Recs: # Anemia of chronic disease due to underlying chronic medical issues, range has been 8-11, ferritin is 633, tibc is low --> Pt refused 01/21/19, no recent labs work. --> No evidence of hemolysis is noted, peripheral smear has been reviewed. --> Epogen with HD 3x/wk --> Medications have been reviewed --> evaluate with Gi team prn --> transfuse if hgb is < 7 (will trend CBC daily) --> hgb trend 11.2-->10.9-->10.8-->10.7-->10.2-->9.7-->9.7-->8.5-->9-->9.2-->8.4 -->7.7-->8.8-->9.1-->8.6-->8.3-->8.9 --> s/p transfusion on 01/06 # Failure to thrive is likely related to poor overall status, poor functional status --> GT++ --> with multiple decub ulcerations that are noted, seen by id/surgery --> s/p trach as well --> cea is wnl # Acute non-occlusive dvt, right extremity ultrasound (acute non-occlusive DVT in internal jugular) --> currently is on eliquis 2.5mg po bid --> do not recommend a SVC filter --> given prior bleeding risk, hold off on heparin gtt --> vasc surgeon is aware, seek recs # Coagulopathy likely secondary to decreased Vitk dependent cofactors (high INR , PT) --> monitor closely for any evidence of bleeding. Currently is on eliquis --> VIT K on prn basis sq can be administered --> recently has improved inr 1.2-->1.1-->1.2-->1.1-->1.1 # Acute respiratory failure is now s/p trach to vent --> as per surgery recs # Ground glass opacities present on imaging of lung --> with pleural effusions, s/p drainage at this time --> no evidence for malignancy is noted --> as per pulm/id # Pleural effusion --> s/p thoracentesis, s/p paracentesis 12/31 as well --> no evidence of malignancy -->01/14 cxr: Interstitial edema, small left pleural effusion # Hyperkalemia --> kayxelate on prn basis per renal --> monitor K # Renal failure --> per renal recs, appreciated --> getting hd as per schedule # Altered level of consciousness --> currently as per baseline --> neuro eval prn # PAD off heparin gtt and now on eliquis --> per vasc and cards --> 12/22 s/p right leg angiogram with intervention --> on eliquis, continue # Gt tube cellulitis, on topical abx as per id around site The timing of this note does not necessarily reflect the time of the patient was seen. Greatly appreciate consultation! Subjective Allergies: Coded Allergies: CEPHALEXIN (Unverified Allergy, Unknown, 02/24/14) SULFAMETHOXAZOLE (Unverified Allergy, Unknown, 02/24/14) TRIMETHOPRIM (Unverified Allergy, Unknown, 02/24/14) Subjective 11/30: comfortable, on abx, no complaints, on t-piece 12/01: to have hd done potentially tomorrow, is more alert/awake 12/02: no major bleeding, hgb remains approx 11, no changes 12/03: no events, breathing mildly better, hgb is improved 12/04: on vent/trach, no major changes, sr ekg 12/10: small amount of secretions, on trach/vent, no issues otherwise 12/11: no major issues, no complaints, labs reviewed, no sig changes 12/13: no events to report, no fevers or chills, awaiting placement 12/14: no changes, no major events to report, no fevers or chills 12/15: pending placement, getting gt feeds and hd as per renal 12/16: labs have been reviewed, cbc noted, no changes 12/17: no events, no fevers, no cp, hgb remains stable 12/18: restarted on heparin gtt, seen by pulm, cards 12/20: continues to be on heparin gtt, no bleeding reported, no f/c 12/21: hd for today, no fevers or chils, off hep gtt on eliquis 12/22: to get hd tomorrow, today is s/p right leg angiogram with intervention 12/23: hgb remins stable, no fevers or chills reported 12/24: no events, no bleeding, vitals reviewed, cbc stable 12/25: no events, no bleeding, on vent, hgb 9 12/27: no changes, no f/c, no night swearts, seen with other providers 12/28: right extremity ultrasound (acute non-occlusive DVT in internal jugular, on eliquis 12/29: no events, no night sweats, seen by gi, no bleeding 12/30: cbc has been reviewed, no f/c, no night sweats reported 12/31: no events, eliquis is on hold cbc has been reviewed, bp elevated 01/01: no fevers or chills, cbc reviewed, hgb 9.3, getting HD 01/02: no events noted, getting norco for pain, hgb stable 01/04: not events to report, no bleeding, refusing ivl at this time, cbc reviewed 01/05: no fevers or chills noted, s/p trach/vent, no f/c, no chills noted 01/06: no events, to get 1 unit prbc today, renal seen, on abx 01/07: hd for tomorrow, seen by renal, no events, cbc reviewed 01/08: getting Hd today, seen by renal, no major events, in sr 01/10: no events to report, to get hd tomorrow, hgb stable 01/11: on vent/trach, gtube, tolerating treatment well, hd today 01/12: remains nonverbal, stable, on vent/trach, no fc 01/13: no events noted, cbc has been reviewed 01/14: thora and para fluid still neg for malignancy, no bleeding 01/15: Pt examined at bedside. No acute events. Pt refusing IV access per nursing per nursing team. 01/17: Pt is awake and alert. Pt in stable condition. Hgb trending down: 8.3 will continue to monitor 01/18: Pt complain of abdominal pain and DIAZ. Hgb trend 8.3-->8.9 01/19: no events, cbc has been reviewed, hgb is stable today 01/20: Awake and alert, able to follow commands. Remains on vent. 01/21: Patient awake in bed. Trach to vent. Pt refused am lab draw. 01/22: no events, dc planning 01/23: no events, dc planning, on epogen and eliquis 01/24: pt remains ventiliator dependent no acute events overnight. Objective Objective Current Medications Medications (Trade) Dose Ordered Sig/Aleks Route PRN Reason Start Time Stop Time Status Last Admin Dose Admin Apixaban (Eliquis) 2.5 mg BID GT 01/01/19 21:00 01/31/19 20:59 01/23/19 17:42 Aspirin (ASA) 81 mg DAILY PEG 01/19/19 09:00 02/18/19 08:59 01/23/19 09:57 Atorvastatin Calcium (Lipitor) 10 mg BEDTIME GT 01/18/19 21:00 02/17/19 20:59 01/23/19 20:37 Carvedilol (Coreg) 3.125 mg EVERY 12 HOURS PEG 01/18/19 21:00 02/17/19 20:59 01/23/19 20:37 Clotrimazole (Lotrimin) 1 applic DAILY TOPIC 01/08/19 18:00 02/07/19 17:59 01/23/19 10:03 Collagenase (Santyl) 1 applic DAILY TOPIC 12/29/18 09:00 01/28/19 08:59 01/23/19 10:04 Dextrose (Dextrose 50%) 25 ml Q30M PRN IV Hypoglycemia 12/31/18 23:00 01/30/19 22:59 Dextrose (Dextrose 50%) 50 ml Q30M PRN IV Hypoglycemia 12/31/18 23:00 01/30/19 22:59 Docusate Sodium (Colace) 100 mg TWICE A DAY GT 01/18/19 18:00 02/17/19 17:59 01/23/19 17:42 Epoetin Vini (Epoetin Vini(ESRD on dialysis)) 10,000 unit FRI-FRI-FRI SUBQ 01/06/19 21:00 02/05/19 20:59 01/22/19 21:21 Escitalopram Oxalate (Lexapro) 20 mg DAILY GT 01/05/19 09:00 02/04/19 08:59 01/23/19 09:57 Hydralazine HCl (Apresoline) 25 mg Q4H PRN GT bp over 160 syst 01/06/19 15:00 02/05/19 14:59 Ibuprofen (Advil) 400 mg TIDPRN PRN ORAL For Pain 01/18/19 11:30 02/17/19 11:29 01/22/19 21:23 Insulin Aspart (NovoLOG) EVERY 6 HOURS SUBQ 01/01/19 00:00 01/31/19 00:00 01/24/19 06:23 Lansoprazole (Prevacid) 30 mg DAILY GT 01/16/19 09:00 02/15/19 08:59 01/23/19 09:58 Loperamide HCl (Imodium) 2 mg Q6H PRN GT Diarrhea 01/07/19 11:00 02/06/19 10:59 01/16/19 04:24 Tacrolimus (Prograf) 2 mg MoWeFr@0000,1200 ORAL 12/28/18 00:00 01/27/19 00:00 01/22/19 14:28 Tacrolimus (Prograf) 2 mg SuTuThSa@0900,2100 ORAL 12/26/18 21:00 01/25/19 20:59 01/23/19 20:37 Last 24 Hour Vital Signs Date Time Temp Pulse Resp B/P (MAP) Pulse Ox O2 Delivery O2 Flow Rate FiO2 01/24/19 06:42 88 25 40 01/24/19 04:54 81 25 40 01/24/19 04:00 Mechanical Ventilator 01/24/19 04:00 98.0 75 26 101/74 (83) 100 01/24/19 04:00 71 01/24/19 04:00 40 01/24/19 02:54 77 25 40 01/24/19 00:33 80 28 40 01/24/19 00:00 40 01/24/19 00:00 72 01/24/19 00:00 Mechanical Ventilator 01/24/19 00:00 98.4 82 24 132/78 (96) 100 01/23/19 22:57 87 25 40 01/23/19 21:04 79 26 40 01/23/19 20:37 73 122/76 01/23/19 20:00 40 01/23/19 20:00 Mechanical Ventilator 01/23/19 20:00 97.5 73 25 122/76 (91) 95 01/23/19 20:00 73 01/23/19 18:48 82 24 40 01/23/19 17:00 79 25 40 01/23/19 16:14 40 01/23/19 16:00 73 01/23/19 16:00 98.5 72 25 160/82 (108) 100 01/23/19 16:00 Mechanical Ventilator 01/23/19 15:22 80 22 40 01/23/19 13:15 83 23 40 01/23/19 12:00 40 01/23/19 12:00 97.2 74 25 153/74 (100) 100 01/23/19 12:00 Mechanical Ventilator 01/23/19 12:00 70 01/23/19 10:48 85 28 40 01/23/19 10:15 100 01/23/19 10:15 72 30 40 01/23/19 09:58 72 132/64 01/23/19 09:25 71 23 40 01/23/19 08:03 40 01/23/19 08:00 Mechanical Ventilator 01/23/19 08:00 70 01/23/19 08:00 97.0 72 24 132/64 (86) 100 01/23/19 07:05 70 24 40 01/23/19 05:30 82 23 40 01/23/19 04:00 Mechanical Ventilator 01/23/19 04:00 97.7 70 23 119/66 (83) 100 01/23/19 04:00 40 01/23/19 03:31 70 01/23/19 02:56 81 21 40 01/23/19 01:08 75 24 40 01/23/19 00:00 Mechanical Ventilator 01/23/19 00:00 97.6 76 25 105/66 (79) 95 01/22/19 23:51 40 01/22/19 23:31 74 01/22/19 23:09 79 21 40 01/22/19 21:22 74 110/73 01/22/19 21:05 81 22 40 01/22/19 20:00 Mechanical Ventilator 01/22/19 20:00 40 01/22/19 20:00 97.2 74 26 110/73 (85) 96 01/22/19 19:31 76 01/22/19 19:08 79 23 40 01/22/19 17:02 81 24 40 01/22/19 16:00 98.0 76 25 107/56 (73) 100 01/22/19 16:00 75 01/22/19 16:00 Mechanical Ventilator 01/22/19 16:00 40 01/22/19 15:39 83 22 40 01/22/19 13:13 81 20 40 01/22/19 12:00 98.1 78 27 163/85 (111) 98 01/22/19 12:00 40 01/22/19 12:00 78 01/22/19 12:00 Mechanical Ventilator 01/22/19 10:53 84 25 40 01/22/19 10:48 86 101/58 01/22/19 09:55 86 27 40 01/22/19 09:53 100 01/22/19 09:29 85 27 40 01/22/19 08:00 40 01/22/19 08:00 98.0 72 24 110/61 (77) 100 01/22/19 08:00 Mechanical Ventilator 01/22/19 08:00 72 Intake and Output 01/23/19 01/24/19 18:59 06:59 Intake Total 815 ml 740 ml Balance 815 ml 740 ml Free Water 200 ml 200 ml Tube Feeding 495 ml 540 ml Other 120 ml # Bowel Movements 3 Labs Test 01/22/19 11:20 Sodium Level 131 MMOL/L (136-145) Potassium Level 3.8 MMOL/L (3.5-5.1) Chloride Level 91 MMOL/L (98-107) Carbon Dioxide Level 30 MMOL/L (21-32) Anion Gap 10 mmol/L (5-15) Blood Urea Nitrogen 71 mg/dL (7-18) Creatinine 5.9 MG/DL (0.55-1.30) Estimat Glomerular Filtration Rate 9.6 mL/min (>60) Glucose Level 211 MG/DL (74-106) Calcium Level 9.4 MG/DL (8.5-10.1) Phosphorus Level 3.5 MG/DL (2.5-4.9) Total Bilirubin 0.4 MG/DL (0.2-1.0) Gamma Glutamyl Transpeptidase 47 U/L (5-85) Aspartate Amino Transf (AST/SGOT) 17 U/L (15-37) Alanine Aminotransferase (ALT/SGPT) 13 U/L (12-78) Alkaline Phosphatase 151 U/L (46-116) Total Protein 6.6 G/DL (6.4-8.2) Albumin 1.9 G/DL (3.4-5.0) Globulin 4.7 g/dL Albumin/Globulin Ratio 0.4 (1.0-2.7) Height (Feet): 5 Height (Inches): 4.00 Weight (Pounds): 220 Objective PE General Appearance: No acute distress. Lines, tubes and drains: peripheral HEENT: EOMI, ++ thrush, tonsils swollen ++trach on vent Neck: normal inspection Respiratory/Chest: decreased breath sounds, accessory muscle use. VENT++ Cardiovascular/Chest: tachycardia Abdomen: soft, no organomegaly, no mass, ++ peg Extremities: other Skin Exam: warm/dry, rash Neurologic: alert, responsive Whitney Young NP Jan 24, 2019 07:22
[2019-01-24 08:00] VITALS: BP 150/61
[2019-01-24] MEDS: Docusate 100mg/10ml Liq GT SCH ×2 (09:23→17:51)
[2019-01-24] MEDS: Aspirin Baby 81mg PEG SCH (09:23)
[2019-01-24] MEDS: Eliquis 2.5mg tablet GT SCH ×2 (09:23→17:47)
--- NOTE | 2019-01-24 09:35 | Cardiology Progress Note ---
Assessment/Plan Status: stable Assessment/Plan Assessment/Plan Assessment/Plan 1. Troponin leak with no chest pain. Hx of CABG. Due to renal failure. On Coreg 6.25 mg bid, aspirin and Lipitor 2. S/P CABG - outpatient stress test no chest pain currently 3. Nonsustained ventricular tachycardia. 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 EF 55%. No Syncope, monitor and replace electrolytes 4. Congestive heart failure. On hemodialysis Currently euvolemic, no distress 5. End-stage renal disease, on hemodialysis per Dr. Stevens 6. Status post right sided [employer] dual chamber pacemaker with Nl Fx. 7. Right foot ulcer. Antibiotic per Dr. Landis. FU by Dr. Huizar 8. History of liver transplant on Prograf 9. Respiratory failure, s/p Trach 10. Pleural effusion. 11. Dysphagia, S/P PEG Awaiting transfer to SNF Subjective Cardiovascular: Reports: no symptoms Respiratory: Reports: no symptoms Gastrointestinal/Abdominal: Reports: no symptoms Genitourinary: Reports: no symptoms Subjective C[employer] no acute events, no distress, vitals stable, awaiting transfer to SNF Objective Last 24 Hour Vital Signs Date Time Temp Pulse Resp B/P (MAP) Pulse Ox O2 Delivery O2 Flow Rate FiO2 01/24/19 06:42 88 25 40 01/24/19 04:54 81 25 40 01/24/19 04:00 Mechanical Ventilator 01/24/19 04:00 98.0 75 26 101/74 (83) 100 01/24/19 04:00 71 01/24/19 04:00 40 01/24/19 02:54 77 25 40 01/24/19 00:33 80 28 40 01/24/19 00:00 40 01/24/19 00:00 72 01/24/19 00:00 Mechanical Ventilator 01/24/19 00:00 98.4 82 24 132/78 (96) 100 01/23/19 22:57 87 25 40 01/23/19 21:04 79 26 40 01/23/19 20:37 73 122/76 01/23/19 20:00 40 01/23/19 20:00 Mechanical Ventilator 01/23/19 20:00 97.5 73 25 122/76 (91) 95 01/23/19 20:00 73 01/23/19 18:48 82 24 40 01/23/19 17:00 79 25 40 01/23/19 16:14 40 01/23/19 16:00 73 01/23/19 16:00 98.5 72 25 160/82 (108) 100 01/23/19 16:00 Mechanical Ventilator 01/23/19 15:22 80 22 40 01/23/19 13:15 83 23 40 01/23/19 12:00 40 01/23/19 12:00 97.2 74 25 153/74 (100) 100 01/23/19 12:00 Mechanical Ventilator 01/23/19 12:00 70 01/23/19 10:48 85 28 40 01/23/19 10:15 100 01/23/19 10:15 72 30 40 01/23/19 09:58 72 132/64 General Appearance: no apparent distress, on vent EENT: PERRL/EOMI, normal ENT inspection, TMs normal, pharynx normal Neck: non-tender, normal alignment, supple, normal inspection, no JVD Rhythm: NSR Cardiovascular: normal peripheral pulses, normal rate Respiratory/Chest: chest wall non-tender, lungs clear, normal breath sounds Abdomen: normal bowel sounds, non tender, soft, no organomegaly, no mass Extremities: normal range of motion, non-tender Neurologic: quality assurance lead 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 normal, no motor/sensory deficits Intake and Output 01/23/19 01/24/19 19:00 07:00 Intake Total 860 ml 695 ml Balance 860 ml 695 ml Free Water 200 ml 200 ml Tube Feeding 540 ml 495 ml Other 120 ml # Bowel Movements 3 Dhruv Jin MD Jan 24, 2019 09:35
--- NOTE | 2019-01-24 10:57 | Neurology Progress Note ---
Interim History Interim History Interim History Mr. Restrepo feels well. He was unable to sleep well last night. He is being weaned off the ventilator and is comfortable. He is alert and bright. His mood is fair. He is in fair spirits. The right heel pain is about the same - and it is healing well. The right upper extremity is still swollen but less painful. He is still artificially ventilated. He feels that his strength is stable. The mind is clear. He denies any new neurological symptoms. He is still worried about his hearing. He has had no PT today. Review of Systems Neuro Review of Systems Benign. Objective Physical Exam Last Vital Signs Date Time Temp Pulse Resp B/P (MAP) Pulse Ox O2 Delivery O2 Flow Rate FiO2 01/24/19 09:33 72 150/61 01/24/19 09:30 98 01/24/19 09:30 26 40 01/24/19 08:00 Mechanical Ventilator 01/24/19 08:00 98.2 Neurologic Exam Objective PHYSICAL EXAMINATION: GENERAL: He is a well-developed and well-nourished, pleasant gentleman, lying in bed, connected to a ventilator via a tracheostomy. HEAD: Normocephalic and atraumatic. EENT: Examination benign. NECK: No neck rigidity was observed. He did have a tracheostomy. NEUROLOGICAL EXAMINATION: MENTAL STATUS EXAMINATION: He was awake and alert. He was oriented to person, place and time. He was able to recall 3/3 words immediately and was able to remember them in 1 and 3 minutes. He was able to remember presidents [employer] through [employer]. His mathematical skills were fair. His visuospatial function was preserved. SPEECH: Could not be tested, but he was able to mouth words relatively well. LANGUAGE: He was able to comprehend and express himself relatively well. CRANIAL NERVES EXAMINATION: II: The visual mckeon were intact to confrontation testing. III, IV & : The external ocular movements were full and the pupils 3 mm in diameter, equal, round, regular, and reactive sluggishly to light. V: He had normal facial sensations, and the temporales, masseters, and pterygoids functioned normally. VII: He had normal facial expressions and no facial asymmetry. VIII: Hearing was decreased bilaterally with worse hearing on the left side compared to the right. IX: The palate moved symmetrically on phonation. X: Could not be tested. XI: The sternocleidomastoids and trapezii functioned normally. XII: The tongue was in the midline without any fasciculations or atrophy. MOTOR SYSTEM: The tone was normal in all four extremities. Examination of muscle mass revealed generalized muscle wasting. Examination of power revealed G 5/5 power except for G 4+/5 power in the iliopsoas muscles bilaterally. SENSORY EXAMINATION: He had intact sensations to light touch. Other sensory modalities could not be tested adequately. REFLEXES: 1+ and bilaterally symmetrical at the biceps, triceps, brachioradialis , and knees, 0 at both ankles. The plantar responses were flexor bilaterally. COORDINATION: He performed well on [id number] testing. STANCE & GAIT: Were deferred. Impression/Recommendations Diagnostic Impression 1. Mr. Gregg Restrepo is a 69-year-old, right-handed, gentleman with past history of multiple medical problems including hypertension, diabetes mellitus, end-stage renal disease for which he is hemodialysis dependent, prior episodes of sepsis, and prior episodes of encephalopathy, who was admitted to [facility] on October 31, 2018. Following that, he has had a stormy hospital course including pneumonia and sepsis, right foot infection, respiratory failure for which he has needed tracheostomy and in addition he has exhibited an alteration in his mental state with some waxing and waning of his mental state. 2. He feels well. He was unable to sleep well last night. He is being weaned off the ventilator and is comfortable. He is alert and bright. His mood is fair. He is in fair spirits. The right heel pain is about the same - and it is healing well. The right upper extremity is still swollen but less painful. He is still artificially ventilated. He feels that his strength is stable. The mind is clear. He denies any new neurological symptoms. He is still worried about his hearing. He has had no PT today. 3. On neurological examination, at this time, he is fully oriented, his recent memory is normal. He has minimally impaired higher cognitive function. He is able to comprehend and express himself well. He does have mild G 4+/5 weakness in the iliopsoas muscles bilaterally. He had globally diminished deep tendon reflexes with loss of ankle jerks, but no definite focal or lateralizing neurological findings. 4. His latest laboratory data on my initial evaluation revealed that he was anemic with a hemoglobin of 10.8 G. His last blood gas performed on 11/14/2018 revealed that he had a pCO2 elevated at 56.4 with a normal pO2 of 88.3 and normal pH of 7.37. His latest chemistry panel revealed that he was mildly hyponatremic with a sodium of 130, and had a chloride of 90. The BUN was elevated at 75, creatinine elevated at 7.4, glucose elevated at 156, Hemoglobin A1c elevated at 6.9%, Alkaline phosphatase elevated at 131, and ProBNP greater than 35,000. His last B12 level on 11/07/2018 was 723. His last folate on was 18.6. His last TSH on 12/06/2018 was 4.82, which is minimally elevated. 5. The CT scan of the brain performed on 11/10/2018 was benign for acute intracranial pathology. 6. The EEG done on 12/08/18 revealed left temporal dysfunction. 7. The patient's history and neurological examination are most consistent with mild multifactorial encephalopathy, which apparently waxes and wanes, but no definite focal neurological dysfunction. His encephalopathy is stable. 8. He tells me that he had a brain bleed many years ago. I did review his imaging done at [facility] a few years ago and he had closed head injuries with subarachnoid and subdural blood in the past. 9. His mood has improved. 10. There has never been a doubt regarding his ability to make decisions regarding his medical care. 11. He is worried about his hearing. 12. As per his speech pathologists, they will continue to follow him for swallowing therapy. Recommendations 1. Continue present management. 2. Continue to correct the patient's toxic metabolic imbalances. 3. Mobilize with PT/OT. 4. Consider ENT evaluation for hearing loss. 5. Observe. Pantera Cool M.D., M.S.P.H. Pantera Cool MD Jan 24, 2019 10:57
[2019-01-24 12:00] VITALS: BP 151/101
--- NOTE | 2019-01-24 12:29 | General Progress Note ---
Assessment/Plan Assessment/Plan: Status: stable Assessment/Plan: #Right heel diabetic foot ulcer without osteomyelitis #PAD #Right IJ DVT -seen by Podiatry and ID -s/p Vanco x 2 weeks during HD and now OFF. Bone scan was negative for osteomyelitis and MRI not possible due to intubation. -continue Eliquis therapy -Vascular Surgery and Hematology following #Acute Resp hypercapnic failure s/p tracheostomy - ventilator weaning per pulmonary #Angioedema #Large right pleural effusion # R side trapped lung -continue trach care -Remains vent-dependant, breathing trials ongoing -Right thoracentesis 01/01/19 with 2.3 lt removed. Post procedure CXR with R trapped lung. -Vent weaning per pulmonary #End-stage renal disease, on dialysis M-W- #RUE edema #Anasarca, ascites, scrotal edema, pleural effusion due to hypoalbuminemia -HD with UF per Nephrology -s/p PRBC transfusion during HD - PRBC as needed if Hb < 7 #Coronary artery disease # s/p PPM # HTN -continue ASA, Coreg, atorvastatin -cardiology following #Type 2 DM -ISS #Acute metabolic encephalopathy -continue supportive care -Neurology following #history of chronic HCV infection #history of liver transplant -continue Prograf -GI following #Abdominal distension and ascites s/p therapeutic paracentesis -no nausea, vomiting or tenderness -continue supportive care -GI following -s/p paracentesis 12/31/18 4.1 lt #Dysphagia S/p PEG with PEG site cellulitis -s/p antibiotics per ID and GI -continue local wound care -tolerating tube feeds #Disposition -Pending SNF placement # FULL CODE Subjective ROS Limited/Unobtainable: Yes Constitutional: Reports: malaise HEENT: Reports: other - decreased hearing, which he reports is gradually improving Gastrointestinal/Abdominal: Reports: abdomen distended, abdominal pain - Bilateral heel pain Allergies: Coded Allergies: CEPHALEXIN (Unverified Allergy, Unknown, 02/24/14) SULFAMETHOXAZOLE (Unverified Allergy, Unknown, 02/24/14) TRIMETHOPRIM (Unverified Allergy, Unknown, 02/24/14) All Systems: reviewed and negative except above - Abdominal Subjective patient is s/p tracheostomy and PEG. 01/01 thoracentesis L side 2.3 lt 12/31 paracenthesis 4.1 lt 12/30 last weaning trial Objective Last 24 Hour Vital Signs Date Time Temp Pulse Resp B/P (MAP) Pulse Ox O2 Delivery O2 Flow Rate FiO2 01/24/19 10:47 85 28 40 01/24/19 09:33 72 150/61 01/24/19 09:30 98 01/24/19 09:30 87 26 40 01/24/19 08:00 Mechanical Ventilator 01/24/19 08:00 70 01/24/19 08:00 40 01/24/19 08:00 98.2 72 27 150/61 (90) 100 01/24/19 06:42 88 25 40 01/24/19 04:54 81 25 40 01/24/19 04:00 Mechanical Ventilator 01/24/19 04:00 98.0 75 26 101/74 (83) 100 01/24/19 04:00 71 01/24/19 04:00 40 01/24/19 02:54 77 25 40 01/24/19 00:33 80 28 40 01/24/19 00:00 40 01/24/19 00:00 72 01/24/19 00:00 Mechanical Ventilator 01/24/19 00:00 98.4 82 24 132/78 (96) 100 01/23/19 22:57 87 25 40 01/23/19 21:04 79 26 40 01/23/19 20:37 73 122/76 01/23/19 20:00 40 01/23/19 20:00 Mechanical Ventilator 01/23/19 20:00 97.5 73 25 122/76 (91) 95 01/23/19 20:00 73 01/23/19 18:48 82 24 40 01/23/19 17:00 79 25 40 01/23/19 16:14 40 01/23/19 16:00 73 01/23/19 16:00 98.5 72 25 160/82 (108) 100 01/23/19 16:00 Mechanical Ventilator 01/23/19 15:22 80 22 40 01/23/19 13:15 83 23 40 Intake and Output 01/23/19 01/24/19 19:00 07:00 Intake Total 860 ml 695 ml Balance 860 ml 695 ml Free Water 200 ml 200 ml Tube Feeding 540 ml 495 ml Other 120 ml # Bowel Movements 3 Height (Feet): 5 Height (Inches): 4.00 Weight (Pounds): 220 General Appearance: WD/WN, moderate distress EENT: PERRL/EOMI Cardiovascular: normal rate, no JVD Respiratory/Chest: lungs clear Abdomen: non tender, other - PEG in place and ascites noted. 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
--- NOTE | 2019-01-24 13:09 | Infectious Diseases Prog Note ---
Assessment/Plan Problems: (1) Foot ulcer Assessment & Plan: with MRSA grew out of it in the past, S/P vancomycin treatment with HD for two weeks, had vascular eval with revascularization to the right leg , S/P ulcer resection by assistance representative . deep ulcer culture grew MRSA and E.coli with diphtheroids , possible colonization , with no evidence of active infection as per discussion with podiatry , no need to be started on antibiotics for now , will continue to monitor clinically and make recommendations as necessary . bone scan ruled out osteomyelitis of the heel before, couldn't do an MRI since on the vent . continue local wound care as per assistance representative . (2) Diarrhea Assessment & Plan: improved, with no infectious etiology so far , and negative stool for C diff toxin , and no pathogens on stool culture , use laxatives as needed , monitor clinically , encourage hydration (3) Thrush, oral Assessment & Plan: resolved with local nystatin as needed , S/P micafungin for three weeks empirically (4) HCV antibody positive Assessment & Plan: no evidence of active infection, with undetectable viral load , suspect due to previous infection , cleared, S/P liver transplant . (5) DM (diabetes mellitus) Assessment & Plan: recommend tight glycemic control to keep blood glucose between 100-140 (6) CHF (congestive heart failure) Assessment & Plan: on HD , renal is following, monitor daily weight , S/P multiple thoracentesis (7) Severe tongue swelling Assessment & Plan: improving , s/p tracheostomy to protect his airway since respiratory status worsened . now improving, pulmonary is following (8) Pleural effusion Assessment & Plan: recurrent on the right, with lung collapse , S/P thoracentesis X 3 now with removal of 2.3 liters of clear fluids on 12/31/18 . await fluids culture and gram stain, with PH and Glucose level . PREVIOUS culture were negative with negative cytology. pulmonary is following (9) Ascites Assessment & Plan: S/P paracentesis with removal of 4.1 liters of fluids, culture so far is negative Assessment/Plan will continue to monitor patient on daily basis and make recommendations as necessary since he is high risk for recurrent infection Subjective Constitutional: Reports: no symptoms HEENT: Reports: no symptoms Respiratory: Reports: no symptoms Breasts: Reports: no symptoms Cardiovascular: Reports: no symptoms Gastrointestinal/Abdominal: Reports: no symptoms Genitourinary: Reports: no symptoms Neurologic: Reports: no symptoms Psychiatric: Reports: no symptoms Skin: Reports: no symptoms Endocrine: Reports: no symptoms Hematologic: Reports: no symptoms Musculoskeletal: Reports: no symptoms Allergies: Coded Allergies: CEPHALEXIN (Unverified Allergy, Unknown, 02/24/14) SULFAMETHOXAZOLE (Unverified Allergy, Unknown, 02/24/14) TRIMETHOPRIM (Unverified Allergy, Unknown, 02/24/14) Subjective he was comfortable, lying in bed, awake and responsive, no fever or chills, no significant secretions from the trach , no SOB . has left heel with wound VAC in place, but no draining coming out . no diarrhea . Objective Vital Signs Last 24 Hour Vital Signs Date Time Temp Pulse Resp B/P (MAP) Pulse Ox O2 Delivery O2 Flow Rate FiO2 01/24/19 12:41 82 29 40 01/24/19 10:47 85 28 40 01/24/19 09:33 72 150/61 01/24/19 09:30 98 01/24/19 09:30 87 26 40 01/24/19 08:00 Mechanical Ventilator 01/24/19 08:00 70 01/24/19 08:00 40 01/24/19 08:00 98.2 72 27 150/61 (90) 100 01/24/19 06:42 88 25 40 01/24/19 04:54 81 25 40 01/24/19 04:00 Mechanical Ventilator 01/24/19 04:00 98.0 75 26 101/74 (83) 100 01/24/19 04:00 71 01/24/19 04:00 40 01/24/19 02:54 77 25 40 01/24/19 00:33 80 28 40 01/24/19 00:00 40 01/24/19 00:00 72 01/24/19 00:00 Mechanical Ventilator 01/24/19 00:00 98.4 82 24 132/78 (96) 100 01/23/19 22:57 87 25 40 01/23/19 21:04 79 26 40 01/23/19 20:37 73 122/76 01/23/19 20:00 40 01/23/19 20:00 Mechanical Ventilator 01/23/19 20:00 97.5 73 25 122/76 (91) 95 01/23/19 20:00 73 01/23/19 18:48 82 24 40 01/23/19 17:00 79 25 40 01/23/19 16:14 40 01/23/19 16:00 73 01/23/19 16:00 98.5 72 25 160/82 (108) 100 01/23/19 16:00 Mechanical Ventilator 01/23/19 15:22 80 22 40 01/23/19 13:15 83 23 40 Height (Feet): 5 Height (Inches): 4.00 Weight (Pounds): 220 General Appearance: WD/WN, no acute distress HEENT: normocephalic, atraumatic, anicteric, mucous membranes moist, PERRL, supple, no JVD, status post trach Respiratory/Chest: chest wall non-tender, lungs clear, normal breath sounds, no respiratory distress, no accessory muscle use Cardiovascular: normal peripheral pulses, normal rate, regular rhythm, no gallop/murmur, no JVD Abdomen: normal bowel sounds, soft, non tender, no organomegaly, non distended , no mass, no scars Genitourinary: normal external genitalia Extremities: no cyanosis, no clubbing Skin: no rash, no lesions, no ulcers 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, no motor/sensory deficits, alert, responsive Lymphatic: no neck adenopathy, no groin adenopathy Musculoskeletal: normal muscle bulk, no effusion Current Medications Medications (Trade) Dose Ordered Sig/Aleks Route PRN Reason Start Time Stop Time Status Last Admin Dose Admin Apixaban (Eliquis) 2.5 mg BID GT 01/01/19 21:00 01/31/19 20:59 01/24/19 09:23 Aspirin (ASA) 81 mg DAILY PEG 01/19/19 09:00 02/18/19 08:59 01/24/19 09:23 Atorvastatin Calcium (Lipitor) 10 mg BEDTIME GT 01/18/19 21:00 02/17/19 20:59 01/23/19 20:37 Carvedilol (Coreg) 3.125 mg EVERY 12 HOURS PEG 01/18/19 21:00 02/17/19 20:59 01/24/19 09:33 Clotrimazole (Lotrimin) 1 applic DAILY TOPIC 01/08/19 18:00 02/07/19 17:59 01/24/19 09:24 Collagenase (Santyl) 1 applic DAILY TOPIC 12/29/18 09:00 01/28/19 08:59 01/24/19 09:24 Dextrose (Dextrose 50%) 25 ml Q30M PRN IV Hypoglycemia 12/31/18 23:00 01/30/19 22:59 Dextrose (Dextrose 50%) 50 ml Q30M PRN IV Hypoglycemia 12/31/18 23:00 01/30/19 22:59 Docusate Sodium (Colace) 100 mg TWICE A DAY GT 01/18/19 18:00 02/17/19 17:59 01/24/19 09:23 Epoetin Vini (Epoetin Vini(ESRD on dialysis)) 10,000 unit FRI-FRI-FRI SUBQ 01/06/19 21:00 02/05/19 20:59 01/22/19 21:21 Escitalopram Oxalate (Lexapro) 20 mg DAILY GT 01/05/19 09:00 02/04/19 08:59 01/24/19 09:23 Hydralazine HCl (Apresoline) 25 mg Q4H PRN GT bp over 160 syst 01/06/19 15:00 02/05/19 14:59 Ibuprofen (Advil) 400 mg TIDPRN PRN ORAL For Pain 01/18/19 11:30 02/17/19 11:29 01/22/19 21:23 Insulin Aspart (NovoLOG) EVERY 6 HOURS SUBQ 01/01/19 00:00 01/31/19 00:00 01/24/19 12:55 Lansoprazole (Prevacid) 30 mg DAILY GT 01/16/19 09:00 02/15/19 08:59 01/24/19 09:24 Loperamide HCl (Imodium) 2 mg Q6H PRN GT Diarrhea 01/07/19 11:00 02/06/19 10:59 01/16/19 04:24 Tacrolimus (Prograf) 2 mg MoWeFr@0000,1200 ORAL 12/28/18 00:00 01/27/19 00:00 01/22/19 14:28 Tacrolimus (Prograf) 2 mg SuTuThSa@0900,2100 ORAL 12/26/18 21:00 01/25/19 20:59 01/24/19 09:34 Francois Landis M.D. Jan 24, 2019 13:09
--- NOTE | 2019-01-24 14:28 | Nephrology Progress Note ---
Assessment/Plan Problem List: (1) ESRD (end stage renal disease) on dialysis (2) Foot ulcer (3) CHF (congestive heart failure) Assessment: Ej Fx 20 % (4) Pacemaker (5) Acute respiratory failure Assessment: with Co2 retention (6) G-tube site cellulitis Assessment ESRD with high K and SOB on admit Foot ulcer, likely infected High Troponin likely NSTMI Pacer , Pleural effusion s/p CABGS s/p Liver transplant Plan dialysis 3 times weekly M W Fr or extra as needed labs before HD noted BP low- improved on midodrine per consultants, GI GT site infection, topical antibiotic Neuro note appreciated placement in process vascular esteban regarding heel ulcer per Dr Mcgill pain med change to dilaudid GT Now has tracheostomy and PEG Adjust BP meds add nitro paste TID Antibiotics by ID per cardio and ID Podiatry and Vascular surgical fu ? DC planning? Subjective ROS Limited/Unobtainable: No Objective Objective Last 24 Hour Vital Signs Date Time Temp Pulse Resp B/P (MAP) Pulse Ox O2 Delivery O2 Flow Rate FiO2 01/24/19 12:41 82 29 40 01/24/19 12:00 Mechanical Ventilator 01/24/19 12:00 98.2 28 151/101 (118) 99 01/24/19 12:00 74 01/24/19 12:00 40 01/24/19 10:47 85 28 40 01/24/19 09:33 72 150/61 01/24/19 09:30 98 01/24/19 09:30 87 26 40 01/24/19 08:00 Mechanical Ventilator 01/24/19 08:00 70 01/24/19 08:00 40 01/24/19 08:00 98.2 72 27 150/61 (90) 100 01/24/19 06:42 88 25 40 01/24/19 04:54 81 25 40 01/24/19 04:00 Mechanical Ventilator 01/24/19 04:00 98.0 75 26 101/74 (83) 100 01/24/19 04:00 71 01/24/19 04:00 40 01/24/19 02:54 77 25 40 01/24/19 00:33 80 28 40 01/24/19 00:00 40 01/24/19 00:00 72 01/24/19 00:00 Mechanical Ventilator 01/24/19 00:00 98.4 82 24 132/78 (96) 100 01/23/19 22:57 87 25 40 01/23/19 21:04 79 26 40 01/23/19 20:37 73 122/76 01/23/19 20:00 40 01/23/19 20:00 Mechanical Ventilator 01/23/19 20:00 97.5 73 25 122/76 (91) 95 01/23/19 20:00 73 01/23/19 18:48 82 24 40 01/23/19 17:00 79 25 40 01/23/19 16:14 40 01/23/19 16:00 73 01/23/19 16:00 98.5 72 25 160/82 (108) 100 01/23/19 16:00 Mechanical Ventilator 01/23/19 15:22 80 22 40 Intake and Output 01/23/19 01/24/19 19:00 07:00 Intake Total 860 ml 695 ml Balance 860 ml 695 ml Free Water 200 ml 200 ml Tube Feeding 540 ml 495 ml Other 120 ml # Bowel Movements 3 Height (Feet): 5 Height (Inches): 4.00 Weight (Pounds): 220 EENT: other - trach Respiratory/Chest: decreased breath sounds Abdomen: other - PEG Objective no other change Nakul Stevens MD Jan 24, 2019 14:28
[2019-01-24 16:00] VITALS: BP 134/68
[2019-01-24 20:00] VITALS: BP 124/61
[2019-01-25] MEDS: NovoLOG Insulin Flexpen SUBQ SCH ×4 (00:27→17:53)
--- NOTE | 2019-01-25 03:45 | Progress Note ---
DATE: 01/24/2019 SUBJECTIVE: The patient has been doing the same, doing well and presents with depressed mood, anxiety, and insomnia. She is compliant with medication. MENTAL STATUS EXAMINATION: The patient is alert and oriented times self, place. Mood is anxious. Affect is constricted, congruent mood. Thought process is concrete. Thought content, no suicidal or homicidal ideation. ASSESSMENT: 1. Major depressive disorder. 2. Anxiety disorder. PLAN: The patient is stable and able to make decisions. We will continue current medications. Provide the patient with reality orientation and supportive therapy. Jeffrey Lala M.D. DR: LAINE JOB#: [id number] CC:
[2019-01-25 04:00] VITALS: BP 154/68
[2019-01-25 06:48] LABS: ALANINE AMINOTRANSFERASE 14 U/L (12-78); ALBUMIN/GLOBULIN RATIO 0.4 (1.0-2.7); ALKALINE PHOSPHATASE 128 U/L (46-116); ANION GAP 8 mmol/L (5-15); ASPARTATE AMINO TRANSFERASE 12 U/L (15-37); BILIRUBIN,TOTAL 0.4 MG/DL (0.2-1.0); BLOOD UREA NITROGEN 83 mg/dL (7-18); CALCIUM 9.3 MG/DL (8.5-10.1); CARBON DIOXIDE 31 MMOL/L (21-32); CHLORIDE 92 MMOL/L (98-107); CREATININE 6.2 MG/DL (0.55-1.30); PHOSPHORUS 3.4 MG/DL (2.5-4.9); POTASSIUM 3.5 MMOL/L (3.5-5.1); SODIUM 131 MMOL/L (136-145)
[2019-01-25 07:01] LABS: BASOPHILS % (AUTO) 0.9 % (0.0-2.0); HEMOGLOBIN 8.3 G/DL (14.2-18.0); MEAN CORPUSCULAR VOLUME 78 FL (80-99); MONOCYTES % (AUTO) 8.6 % (1.0-10.0); NEUTROPHILS % (AUTO) 70.5 % (45.0-75.0); PLATELET COUNT 256 K/UL (150-450); RED BLOOD COUNT 3.32 M/UL (4.70-6.10); RED CELL DISTRIBUTION WIDTH 16.4 % (11.6-14.8); WHITE BLOOD COUNT 6.2 K/UL (4.8-10.8)
[2019-01-25 08:00] VITALS: BP 95/48
[2019-01-25] MEDS: Docusate 100mg/10ml Liq GT SCH ×2 (09:00→17:54)
[2019-01-25] MEDS: Aspirin Baby 81mg PEG SCH (09:36)
[2019-01-25] MEDS: Eliquis 2.5mg tablet GT SCH ×2 (09:37→17:51)
--- NOTE | 2019-01-25 10:20 | General Progress Note ---
Assessment/Plan Problem List: (1) Transplant ICD Codes: Z94.9 - Transplanted organ and tissue status, unspecified SNOMED: 828270825 (2) HTN (hypertension) ICD Codes: I10 - Essential (primary) hypertension SNOMED: 77259611 (3) Pacemaker ICD Codes: Z95.0 - Presence of cardiac pacemaker SNOMED: 510921669 (4) CHF (congestive heart failure) ICD Codes: I50.9 - Heart failure, unspecified SNOMED: 67334699 (5) DM (diabetes mellitus) ICD Codes: E11.9 - Type 2 diabetes mellitus without complications SNOMED: 89837725 (6) Foot ulcer ICD Codes: L97.509 - Non-pressure chronic ulcer of other part of unspecified foot with unspecified severity SNOMED: 49502402 Qualifiers: Qualified Codes: L97.511 - Non-pressure chronic ulcer of other part of right foot limited to breakdown of skin (7) ESRD (end stage renal disease) on dialysis ICD Codes: N18.6 - End stage renal disease; Z99.2 - Dependence on renal dialysis SNOMED: 471529758 Assessment/Plan: History of liver transplant, currently on Prograf History of cholecystectomy status post tracheostomy and PEG Infected G-tube site, fu ID recs C. difficile negative x 2 would care cx >> GRAM NEGATIVE BACILLUS CT AP reviewed, Moderate to large right pleural effusion. Moderate Ascites. s/p Paracentesis yielding 4.1 yield, r/o SBP >> negative for malignant cells Status post right thoracentesis yielding 2.1 L >> negative for malignant cells Continue G-tube feedings GT site care BID/prn topical abx around GT site per ID HD per nephro cont tacrolimus prn transfusions ppi zofran prn Imodium prn, Lomotil for persistent diarrhea follow labs supportive care outpatient Hep C tx, pending RNA PCR monitor LFTS Lomotil prn repeat swallow eval ordered Subjective ROS Limited/Unobtainable: No Allergies: Coded Allergies: CEPHALEXIN (Unverified Allergy, Unknown, 02/24/14) SULFAMETHOXAZOLE (Unverified Allergy, Unknown, 02/24/14) TRIMETHOPRIM (Unverified Allergy, Unknown, 02/24/14) Subjective he pulled his NGT again Objective Last 24 Hour Vital Signs Date Time Temp Pulse Resp B/P (MAP) Pulse Ox O2 Delivery O2 Flow Rate FiO2 6/10/19 09:37 72 95/48 01/25/19 09:22 72 22 40 01/25/19 08:00 40 01/25/19 08:00 Mechanical Ventilator 01/25/19 08:00 97.7 26 95/48 (64) 100 01/25/19 08:00 71 01/25/19 07:16 64 24 40 01/25/19 05:15 70 25 40 01/25/19 04:00 69 01/25/19 04:00 40 01/25/19 04:00 98.2 22 154/68 (96) 100 01/25/19 04:00 Mechanical Ventilator 01/25/19 03:46 68 24 40 01/25/19 01:22 74 25 40 01/25/19 00:00 40 01/25/19 00:00 69 01/25/19 00:00 Mechanical Ventilator 01/24/19 22:38 70 26 40 01/24/19 21:14 71 24 40 01/24/19 20:43 74 124/61 01/24/19 20:00 71 01/24/19 20:00 40 01/24/19 20:00 97.7 27 124/61 (82) 100 01/24/19 20:00 Mechanical Ventilator 01/24/19 18:56 74 29 40 01/24/19 17:15 81 25 40 01/24/19 16:00 71 01/24/19 16:00 97.7 23 134/68 (90) 98 01/24/19 16:00 40 01/24/19 16:00 Mechanical Ventilator 01/24/19 14:35 80 29 40 01/24/19 12:41 82 29 40 01/24/19 12:00 Mechanical Ventilator 01/24/19 12:00 98.2 28 151/101 (118) 99 01/24/19 12:00 74 01/24/19 12:00 40 01/24/19 10:47 85 28 40 Intake and Output 01/24/19 01/25/19 18:59 06:59 Intake Total 760 ml 695 ml Output Total 0 ml 0 ml Balance 760 ml 695 ml Free Water 200 ml 200 ml Tube Feeding 540 ml 495 ml Other 20 ml Output Urine Total 0 ml 0 ml # Bowel Movements 2 Laboratory Tests 01/25/19 05:52: White Blood Count 6.2, Red Blood Count 3.32L, Hemoglobin 8.3L, Hematocrit 26.0L , Mean Corpuscular Volume 78L, Mean Corpuscular Hemoglobin 25.0L, Mean Corpuscular Hemoglobin Concent 31.9L, Red Cell Distribution Width 16.4H, Platelet Count 256, Mean Platelet Volume 5.8L, Neutrophils (%) (Auto) 70.5, Lymphocytes (%) (Auto) 20.0, Monocytes (%) (Auto) 8.6, Eosinophils (%) (Auto) 0.0, Basophils (%) (Auto) 0.9, Sodium Level 131L, Potassium Level 3.5, Chloride Level 92L, Carbon Dioxide Level 31, Anion Gap 8, Blood Urea Nitrogen 83H, Creatinine 6.2H, Estimat Glomerular Filtration Rate 9.0, Glucose Level 187H, Calcium Level 9.3, Phosphorus Level 3.4, Total Bilirubin 0.4, Aspartate Amino Transf (AST/SGOT) 12L, Alanine Aminotransferase (ALT/SGPT) 14, Alkaline Phosphatase 128H, Total Protein 6.8, Albumin 2.0L, Globulin 4.8, Albumin/ Globulin Ratio 0.4L Height (Feet): 5 Height (Inches): 4.00 Weight (Pounds): 211 General Appearance: no apparent distress EENT: normal ENT inspection Neck: supple Cardiovascular: normal rate Respiratory/Chest: decreased breath sounds Abdomen: normal bowel sounds, non tender, soft Extremities: non-tender Jorge Escalera MD Jan 25, 2019 10:20
--- NOTE | 2019-01-25 10:32 | Neurology Progress Note ---
Interim History Interim History Interim History Mr. Restrepo feels relatively well. He was able to sleep relatively well last night. He is being weaned off the ventilator and is comfortable. He is alert and bright. His mood is fair. He is in fair spirits. The right heel pain is about the same - and it is healing well. The right upper extremity is still swollen but less painful. He is still artificially ventilated. He feels that his strength is stable. The mind is clear. He denies any new neurological symptoms. He is still worried about his hearing. He has had no PT today. Review of Systems Neuro Review of Systems Benign. Objective Physical Exam Last Vital Signs Date Time Temp Pulse Resp B/P (MAP) Pulse Ox O2 Delivery O2 Flow Rate FiO2 01/25/19 09:37 72 95/48 01/25/19 09:22 22 40 01/25/19 08:00 Mechanical Ventilator 01/25/19 08:00 97.7 100 Laboratory Tests Test 01/25/19 05:52 White Blood Count 6.2 K/UL (4.8-10.8) Red Blood Count 3.32 M/UL (4.70-6.10) L Hemoglobin 8.3 G/DL (14.2-18.0) L Hematocrit 26.0 % (42.0-52.0) L Mean Corpuscular Volume 78 FL (80-99) L Mean Corpuscular Hemoglobin 25.0 PG (27.0-31.0) L Mean Corpuscular Hemoglobin Concent 31.9 G/DL (32.0-36.0) L Red Cell Distribution Width 16.4 % (11.6-14.8) H Platelet Count 256 K/UL (150-450) Mean Platelet Volume 5.8 FL (6.5-10.1) L Neutrophils (%) (Auto) 70.5 % (45.0-75.0) Lymphocytes (%) (Auto) 20.0 % (20.0-45.0) Monocytes (%) (Auto) 8.6 % (1.0-10.0) Eosinophils (%) (Auto) 0.0 % (0.0-3.0) Basophils (%) (Auto) 0.9 % (0.0-2.0) Sodium Level 131 MMOL/L (136-145) L Potassium Level 3.5 MMOL/L (3.5-5.1) Chloride Level 92 MMOL/L (98-107) L Carbon Dioxide Level 31 MMOL/L (21-32) Anion Gap 8 mmol/L (5-15) Blood Urea Nitrogen 83 mg/dL (7-18) H Creatinine 6.2 MG/DL (0.55-1.30) H Estimat Glomerular Filtration Rate 9.0 mL/min (>60) Glucose Level 187 MG/DL (74-106) H Calcium Level 9.3 MG/DL (8.5-10.1) Phosphorus Level 3.4 MG/DL (2.5-4.9) Total Bilirubin 0.4 MG/DL (0.2-1.0) Aspartate Amino Transf (AST/SGOT) 12 U/L (15-37) L Alanine Aminotransferase (ALT/SGPT) 14 U/L (12-78) Alkaline Phosphatase 128 U/L (46-116) H Total Protein 6.8 G/DL (6.4-8.2) Albumin 2.0 G/DL (3.4-5.0) L Globulin 4.8 g/dL Albumin/Globulin Ratio 0.4 (1.0-2.7) L Neurologic Exam Objective PHYSICAL EXAMINATION: GENERAL: He is a well-developed and well-nourished, pleasant gentleman, lying in bed, connected to a ventilator via a tracheostomy. HEAD: Normocephalic and atraumatic. EENT: Examination benign. NECK: No neck rigidity was observed. He did have a tracheostomy. NEUROLOGICAL EXAMINATION: MENTAL STATUS EXAMINATION: He was awake and alert. He was oriented to person, place and time. He was able to recall 3/3 words immediately and was able to remember them in 1 and 3 minutes. He was able to remember presidents Trump through Mak Keny. His mathematical skills were fair. His visuospatial function was preserved. SPEECH: Could not be tested, but he was able to mouth words relatively well. LANGUAGE: He was able to comprehend and express himself relatively well. CRANIAL NERVES EXAMINATION: II: The visual mckeon were intact to confrontation testing. III, IV & : The external ocular movements were full and the pupils 3 mm in diameter, equal, round, regular, and reactive sluggishly to light. V: He had normal facial sensations, and the temporales, masseters, and pterygoids functioned normally. VII: He had normal facial expressions and no facial asymmetry. VIII: Hearing was decreased bilaterally with worse hearing on the left side compared to the right. IX: The palate moved symmetrically on phonation. X: Could not be tested. XI: The sternocleidomastoids and trapezii functioned normally. XII: The tongue was in the midline without any fasciculations or atrophy. MOTOR SYSTEM: The tone was normal in all four extremities. Examination of muscle mass revealed generalized muscle wasting. Examination of power revealed G 5/5 power except for G 4+/5 power in the iliopsoas muscles bilaterally. SENSORY EXAMINATION: He had intact sensations to light touch. Other sensory modalities could not be tested adequately. REFLEXES: 1+ and bilaterally symmetrical at the biceps, triceps, brachioradialis , and knees, 0 at both ankles. The plantar responses were flexor bilaterally. COORDINATION: He performed well on [id number] testing. STANCE & GAIT: Were deferred. Impression/Recommendations Diagnostic Impression 1. Mr. Gregg Restrepo is a 69-year-old, right-handed, gentleman with past history of multiple medical problems including hypertension, diabetes mellitus, end-stage renal disease for which he is hemodialysis dependent, prior episodes of sepsis, and prior episodes of encephalopathy, who was admitted to [facility] on October 31, 2018. Following that, he has had a stormy hospital course including pneumonia and sepsis, right foot infection, respiratory failure for which he has needed tracheostomy and in addition he has exhibited an alteration in his mental state with some waxing and waning of his mental state. 2. He feels relatively well. He was able to sleep relatively well last night. He is being weaned off the ventilator and is comfortable. He is alert and bright. His mood is fair. He is in fair spirits. The right heel pain is about the same - and it is healing well. The right upper extremity is still swollen but less painful. He is still artificially ventilated. He feels that his strength is stable. The mind is clear. He denies any new neurological symptoms. He is still worried about his hearing. He has had no PT today. 3. On neurological examination, at this time, he is fully oriented, his recent memory is normal. He has minimally impaired higher cognitive function. He is able to comprehend and express himself well. He does have mild G 4+/5 weakness in the iliopsoas muscles bilaterally. He had globally diminished deep tendon reflexes with loss of ankle jerks, but no definite focal or lateralizing neurological findings. 4. His latest laboratory data on my initial evaluation revealed that he was anemic with a hemoglobin of 10.8 G. His last blood gas performed on 11/14/2018 revealed that he had a pCO2 elevated at 56.4 with a normal pO2 of 88.3 and normal pH of 7.37. His latest chemistry panel revealed that he was mildly hyponatremic with a sodium of 130, and had a chloride of 90. The BUN was elevated at 75, creatinine elevated at 7.4, glucose elevated at 156, Hemoglobin A1c elevated at 6.9%, Alkaline phosphatase elevated at 131, and ProBNP greater than 35,000. His last B12 level on 11/07/2018 was 723. His last folate on was 18.6. His last TSH on 12/06/2018 was 4.82, which is minimally elevated. 5. The CT scan of the brain performed on 11/10/2018 was benign for acute intracranial pathology. 6. The EEG done on 12/08/18 revealed left temporal dysfunction. 7. The patient's history and neurological examination are most consistent with mild multifactorial encephalopathy, which apparently waxes and wanes, but no definite focal neurological dysfunction. His encephalopathy is stable. 8. He tells me that he had a brain bleed many years ago. I did review his imaging done at [facility] a few years ago and he had closed head injuries with subarachnoid and subdural blood in the past. 9. His mood has improved. 10. There has never been a doubt regarding his ability to make decisions regarding his medical care. 11. He is worried about his hearing. 12. As per his speech pathologists, they will continue to follow him for swallowing therapy. Recommendations 1. Continue present management. 2. Continue to correct the patient's toxic metabolic imbalances. 3. Mobilize with PT/OT. 4. Consider ENT evaluation for hearing loss. 5. Observe. Pantera Cool M.D., M.S.P.HPantera Dorsey MD 10, 2019 10:32
--- NOTE | 2019-01-25 11:58 | Nephrology Progress Note ---
Assessment/Plan Problem List: (1) ESRD (end stage renal disease) on dialysis (2) Foot ulcer (3) CHF (congestive heart failure) Assessment: Ej Fx 20 % (4) Pacemaker (5) Acute respiratory failure Assessment: with Co2 retention (6) G-tube site cellulitis Assessment ESRD with high K and SOB on admit Foot ulcer, likely infected High Troponin likely NSTMI Pacer , Pleural effusion s/p CABGS s/p Liver transplant Plan dialysis 3 times weekly M W Fr or extra as needed labs before HD noted BP low- improved on midodrine per consultants, GI GT site infection, topical antibiotic Neuro note appreciated placement in process vascular esteban regarding heel ulcer per Dr Mcgill pain med change to dilaudid GT Now has tracheostomy and PEG Adjust BP meds add nitro paste TID Antibiotics by ID per cardio and ID Podiatry and Vascular surgical fu ? DC planning? Subjective ROS Limited/Unobtainable: No Constitutional: Reports: malaise Objective Objective Last 24 Hour Vital Signs Date Time Temp Pulse Resp B/P (MAP) Pulse Ox O2 Delivery O2 Flow Rate FiO2 01/25/19 09:37 72 95/48 01/25/19 09:22 72 22 40 01/25/19 08:00 40 01/25/19 08:00 Mechanical Ventilator 01/25/19 08:00 97.7 26 95/48 (64) 100 01/25/19 08:00 71 01/25/19 07:16 64 24 40 01/25/19 05:15 70 25 40 01/25/19 04:00 69 01/25/19 04:00 40 01/25/19 04:00 98.2 22 154/68 (96) 100 01/25/19 04:00 Mechanical Ventilator 01/25/19 03:46 68 24 40 01/25/19 01:22 74 25 40 01/25/19 00:00 40 01/25/19 00:00 69 01/25/19 00:00 Mechanical Ventilator 01/24/19 22:38 70 26 40 01/24/19 21:14 71 24 40 01/24/19 20:43 74 124/61 01/24/19 20:00 71 01/24/19 20:00 40 01/24/19 20:00 97.7 27 124/61 (82) 100 01/24/19 20:00 Mechanical Ventilator 01/24/19 18:56 74 29 40 01/24/19 17:15 81 25 40 01/24/19 16:00 71 01/24/19 16:00 97.7 23 134/68 (90) 98 01/24/19 16:00 40 01/24/19 16:00 Mechanical Ventilator 01/24/19 14:35 80 29 40 01/24/19 12:41 82 29 40 01/24/19 12:00 Mechanical Ventilator 01/24/19 12:00 98.2 28 151/101 (118) 99 01/24/19 12:00 74 01/24/19 12:00 40 Intake and Output 01/24/19 01/25/19 18:59 06:59 Intake Total 760 ml 695 ml Output Total 0 ml 0 ml Balance 760 ml 695 ml Free Water 200 ml 200 ml Tube Feeding 540 ml 495 ml Other 20 ml Output Urine Total 0 ml 0 ml # Bowel Movements 2 Laboratory Tests 01/25/19 05:52: White Blood Count 6.2, Red Blood Count 3.32L, Hemoglobin 8.3L, Hematocrit 26.0L , Mean Corpuscular Volume 78L, Mean Corpuscular Hemoglobin 25.0L, Mean Corpuscular Hemoglobin Concent 31.9L, Red Cell Distribution Width 16.4H, Platelet Count 256, Mean Platelet Volume 5.8L, Neutrophils (%) (Auto) 70.5, Lymphocytes (%) (Auto) 20.0, Monocytes (%) (Auto) 8.6, Eosinophils (%) (Auto) 0.0, Basophils (%) (Auto) 0.9, Sodium Level 131L, Potassium Level 3.5, Chloride Level 92L, Carbon Dioxide Level 31, Anion Gap 8, Blood Urea Nitrogen 83H, Creatinine 6.2H, Estimat Glomerular Filtration Rate 9.0, Glucose Level 187H, Calcium Level 9.3, Phosphorus Level 3.4, Total Bilirubin 0.4, Aspartate Amino Transf (AST/SGOT) 12L, Alanine Aminotransferase (ALT/SGPT) 14, Alkaline Phosphatase 128H, Total Protein 6.8, Albumin 2.0L, Globulin 4.8, Albumin/ Globulin Ratio 0.4L Height (Feet): 5 Height (Inches): 4.00 Weight (Pounds): 211 General Appearance: no apparent distress Objective no other change Fouladian,Nakul MD Jan 25, 2019 11:58
[2019-01-25 12:00] VITALS: BP 116/61
--- NOTE | 2019-01-25 13:17 | General Progress Note ---
Assessment/Plan Assessment/Plan: #Right heel diabetic foot ulcer without osteomyelitis #PAD #Right IJ DVT -seen by Podiatry and ID -s/p Vanco x 2 weeks during HD -continue Eliquis -Vascular Surgery and Hematology following #Acute Resp hypercapnic failure s/p tracheostomy #Angioedema #Large right pleural effusion # R side trapped lung -continue trach care -Remains vent-dependant, breathing trials ongoing -Right thoracentesis 01/01/19 with 2.3 lt removed. Post procedure CXR with R trapped lung. -Vent weaning ongoing #End-stage renal disease, on dialysis M-W- #RUE edema #Anasarca, ascites, scrotal edema, pleural effusion due to hypoalbuminemia -HD with UF per Nephrology -s/p PRBC transfusion during HD #Coronary artery disease -continue ASA, Coreg, atorvastatin -cardiology following #Type 2 DM -ISS #Acute metabolic encephalopathy -continue supportive care -Neurology following #history of chronic HCV infection #history of liver transplant -continue Prograf -GI following #Abdominal distension and ascites s/p therapeutic paracentesis -no nausea, vomiting or tenderness -continue supportive care -GI following -s/p paracentesis 12/31/18 4.1 lt #Dysphagia S/p PEG with PEG site cellulitis -s/p antibiotics per ID and GI -continue local wound care -tolerating tube feeds #FULL CODE #Dispo planning Subjective Date patient seen: Jan 25, 2019 Time patient seen: 09:00 ROS Limited/Unobtainable: Yes Cardiovascular: Denies: chest pain Respiratory: Denies: cough Gastrointestinal/Abdominal: Denies: abdominal pain Allergies: Coded Allergies: CEPHALEXIN (Unverified Allergy, Unknown, 02/24/14) SULFAMETHOXAZOLE (Unverified Allergy, Unknown, 02/24/14) TRIMETHOPRIM (Unverified Allergy, Unknown, 02/24/14) Subjective Medicine follow up for acute resp failure, PAD, right heel infected DFU, ESRD, anasarca secondary to hypoalbuminemia, right IJ DVT. S/p 4 liter paracentesis and 2 liter thoracentesis. No new complaints. Doing well per RN Objective Last 24 Hour Vital Signs Date Time Temp Pulse Resp B/P (MAP) Pulse Ox O2 Delivery O2 Flow Rate FiO2 01/25/19 12:00 40 01/25/19 12:00 Mechanical Ventilator 01/25/19 11:00 70 20 40 01/25/19 09:37 72 95/48 01/25/19 09:22 72 22 40 01/25/19 08:00 40 01/25/19 08:00 Mechanical Ventilator 01/25/19 08:00 97.7 26 95/48 (64) 100 01/25/19 08:00 71 01/25/19 07:16 64 24 40 01/25/19 05:15 70 25 40 01/25/19 04:00 69 01/25/19 04:00 40 01/25/19 04:00 98.2 22 154/68 (96) 100 01/25/19 04:00 Mechanical Ventilator 01/25/19 03:46 68 24 40 01/25/19 01:22 74 25 40 01/25/19 00:00 40 01/25/19 00:00 69 01/25/19 00:00 Mechanical Ventilator 01/24/19 22:38 70 26 40 01/24/19 21:14 71 24 40 01/24/19 20:43 74 124/61 01/24/19 20:00 71 01/24/19 20:00 40 01/24/19 20:00 97.7 27 124/61 (82) 100 01/24/19 20:00 Mechanical Ventilator 01/24/19 18:56 74 29 40 01/24/19 17:15 81 25 40 01/24/19 16:00 71 01/24/19 16:00 97.7 23 134/68 (90) 98 01/24/19 16:00 40 01/24/19 16:00 Mechanical Ventilator 01/24/19 14:35 80 29 40 Intake and Output 01/24/19 01/25/19 19:00 07:00 Intake Total 760 ml 695 ml Output Total 0 ml 0 ml Balance 760 ml 695 ml Free Water 200 ml 200 ml Tube Feeding 540 ml 495 ml Other 20 ml Output Urine Total 0 ml 0 ml # Bowel Movements 2 Laboratory Tests 01/25/19 05:52: White Blood Count 6.2, Red Blood Count 3.32L, Hemoglobin 8.3L, Hematocrit 26.0L , Mean Corpuscular Volume 78L, Mean Corpuscular Hemoglobin 25.0L, Mean Corpuscular Hemoglobin Concent 31.9L, Red Cell Distribution Width 16.4H, Platelet Count 256, Mean Platelet Volume 5.8L, Neutrophils (%) (Auto) 70.5, Lymphocytes (%) (Auto) 20.0, Monocytes (%) (Auto) 8.6, Eosinophils (%) (Auto) 0.0, Basophils (%) (Auto) 0.9, Sodium Level 131L, Potassium Level 3.5, Chloride Level 92L, Carbon Dioxide Level 31, Anion Gap 8, Blood Urea Nitrogen 83H, Creatinine 6.2H, Estimat Glomerular Filtration Rate 9.0, Glucose Level 187H, Calcium Level 9.3, Phosphorus Level 3.4, Total Bilirubin 0.4, Aspartate Amino Transf (AST/SGOT) 12L, Alanine Aminotransferase (ALT/SGPT) 14, Alkaline Phosphatase 128H, Total Protein 6.8, Albumin 2.0L, Globulin 4.8, Albumin/ Globulin Ratio 0.4L Height (Feet): 5 Height (Inches): 4.00 Weight (Pounds): 211 General Appearance: no apparent distress, alert Neck: normal alignment, supple Cardiovascular: normal rate, regular rhythm Respiratory/Chest: lungs clear, normal breath sounds Abdomen: non tender, soft Dennis Branham MD Jan 25, 2019 13:17
--- NOTE | 2019-01-25 14:30 | Cardiac Electrophysiology PN ---
Assessment/Plan Assessment/Plan 1. Troponin leak due to renal failure. No CP or SOB. Nl EF 2. Hx of CABG. On Coreg, aspirin and Lipitor 3. NSVT in setting of old OH and CABG. EF 55%. Continue Coreg. No Syncope 4. CHF and right pleural effusion. On hemodialysis. S/P Thoracentesis 5. S/P Right sided [employer] DDD pacemaker with Nl Fx. 6. End-stage renal disease, on hemodialysis MWF per Dr. Stevens 7. Multilevel AOD LE's with non-healing Right foot ulcer. Had abdominal angiogram per Dr Salmeron Antibiotic per Dr. Landis. FU by Dr. Huizar S/P peripheral intervention by Dr. Salmeron 12/22/18 Right foot on Wound-Vac 8. History of liver transplant on Prograf 9. Respiratory failure, S/P tracheostomy. 10. Pleural effusion. s/p 2300 cc thoracentesis 01/01/19 11. Dysphagia, S/P PEG DW RN Subjective Subjective Alert in NAD.No CP or SOB. Getting HD today Objective Last 24 Hour Vital Signs Date Time Temp Pulse Resp B/P (MAP) Pulse Ox O2 Delivery O2 Flow Rate FiO2 01/25/19 13:28 74 18 40 01/25/19 12:00 40 01/25/19 12:00 Mechanical Ventilator 01/25/19 11:00 70 20 40 01/25/19 10:00 97 01/25/19 09:37 72 95/48 01/25/19 09:22 72 22 40 01/25/19 08:00 40 01/25/19 08:00 Mechanical Ventilator 01/25/19 08:00 97.7 26 95/48 (64) 100 01/25/19 08:00 71 01/25/19 07:16 64 24 40 01/25/19 05:15 70 25 40 01/25/19 04:00 69 01/25/19 04:00 40 01/25/19 04:00 98.2 22 154/68 (96) 100 01/25/19 04:00 Mechanical Ventilator 01/25/19 03:46 68 24 40 01/25/19 01:22 74 25 40 01/25/19 00:00 40 01/25/19 00:00 69 01/25/19 00:00 Mechanical Ventilator 6/9/19 22:38 70 26 40 01/24/19 21:14 71 24 40 01/24/19 20:43 74 124/61 01/24/19 20:00 71 01/24/19 20:00 40 01/24/19 20:00 97.7 27 124/61 (82) 100 01/24/19 20:00 Mechanical Ventilator 01/24/19 18:56 74 29 40 01/24/19 17:15 81 25 40 01/24/19 16:00 71 01/24/19 16:00 97.7 23 134/68 (90) 98 01/24/19 16:00 40 01/24/19 16:00 Mechanical Ventilator 01/24/19 14:35 80 29 40 Intake and Output 01/24/19 01/25/19 19:00 07:00 Intake Total 760 ml 695 ml Output Total 0 ml 0 ml Balance 760 ml 695 ml Free Water 200 ml 200 ml Tube Feeding 540 ml 495 ml Other 20 ml Output Urine Total 0 ml 0 ml # Bowel Movements 2 Laboratory Tests Test 01/25/19 05:52 White Blood Count 6.2 K/UL (4.8-10.8) Red Blood Count 3.32 M/UL (4.70-6.10) L Hemoglobin 8.3 G/DL (14.2-18.0) L Hematocrit 26.0 % (42.0-52.0) L Mean Corpuscular Volume 78 FL (80-99) L Mean Corpuscular Hemoglobin 25.0 PG (27.0-31.0) L Mean Corpuscular Hemoglobin Concent 31.9 G/DL (32.0-36.0) L Red Cell Distribution Width 16.4 % (11.6-14.8) H Platelet Count 256 K/UL (150-450) Mean Platelet Volume 5.8 FL (6.5-10.1) L Neutrophils (%) (Auto) 70.5 % (45.0-75.0) Lymphocytes (%) (Auto) 20.0 % (20.0-45.0) Monocytes (%) (Auto) 8.6 % (1.0-10.0) Eosinophils (%) (Auto) 0.0 % (0.0-3.0) Basophils (%) (Auto) 0.9 % (0.0-2.0) Sodium Level 131 MMOL/L (136-145) L Potassium Level 3.5 MMOL/L (3.5-5.1) Chloride Level 92 MMOL/L (98-107) L Carbon Dioxide Level 31 MMOL/L (21-32) Anion Gap 8 mmol/L (5-15) Blood Urea Nitrogen 83 mg/dL (7-18) H Creatinine 6.2 MG/DL (0.55-1.30) H Estimat Glomerular Filtration Rate 9.0 mL/min (>60) Glucose Level 187 MG/DL (74-106) H Calcium Level 9.3 MG/DL (8.5-10.1) Phosphorus Level 3.4 MG/DL (2.5-4.9) Total Bilirubin 0.4 MG/DL (0.2-1.0) Aspartate Amino Transf (AST/SGOT) 12 U/L (15-37) L Alanine Aminotransferase (ALT/SGPT) 14 U/L (12-78) Alkaline Phosphatase 128 U/L (46-116) H Total Protein 6.8 G/DL (6.4-8.2) Albumin 2.0 G/DL (3.4-5.0) L Globulin 4.8 g/dL Albumin/Globulin Ratio 0.4 (1.0-2.7) L Objective HEAD AND NECK: No JVD. Tracheostomy intact LUNGS: Clear CARDIOVASCULAR: Irregular S1 and S2 with no gallop. Sternotomy is intact Pacemaker in the right subclavian ABDOMEN: Soft. PEG in place EXTREMITIES: Right heel connected to WoundVac Shivam Sharpe MD Jan 25, 2019 14:30
[2019-01-25 16:00] VITALS: BP 154/67
--- NOTE | 2019-01-25 17:00 | Infectious Diseases Prog Note ---
Assessment/Plan Problems: (1) Foot ulcer Assessment & Plan: with MRSA grew out of it in the past, S/P vancomycin treatment with HD for two weeks, had vascular eval with revascularization to the right leg , S/P ulcer resection by figure model . deep ulcer culture grew MRSA and E.coli with diphtheroids , possible colonization , with no evidence of active infection as per discussion with podiatry , no need to be started on antibiotics for now , will continue to monitor clinically and make recommendations as necessary . bone scan ruled out osteomyelitis of the heel before, couldn't do an MRI since on the vent . continue local wound care as per figure model . (2) Diarrhea Assessment & Plan: improved, with no infectious etiology so far , and negative stool for C diff toxin , and no pathogens on stool culture , use laxatives as needed , monitor clinically , encourage hydration (3) Thrush, oral Assessment & Plan: resolved with local nystatin as needed , S/P micafungin for three weeks empirically (4) HCV antibody positive Assessment & Plan: no evidence of active infection, with undetectable viral load , suspect due to previous infection , cleared, S/P liver transplant . (5) DM (diabetes mellitus) Assessment & Plan: recommend tight glycemic control to keep blood glucose between 100-140 (6) CHF (congestive heart failure) Assessment & Plan: on HD , renal is following, monitor daily weight , S/P multiple thoracentesis (7) Severe tongue swelling Assessment & Plan: improving , s/p tracheostomy to protect his airway since respiratory status worsened . now improving, pulmonary is following (8) Pleural effusion Assessment & Plan: recurrent on the right, with lung collapse , S/P thoracentesis X 3 now with removal of 2.3 liters of clear fluids on 12/31/18 . await fluids culture and gram stain, with PH and Glucose level . PREVIOUS culture were negative with negative cytology. pulmonary is following (9) Ascites Assessment & Plan: S/P paracentesis with removal of 4.1 liters of fluids, culture so far is negative Assessment/Plan will continue to monitor patient on daily basis and make recommendations as necessary since he is high risk for recurrent infection Subjective Constitutional: Reports: no symptoms HEENT: Reports: no symptoms Respiratory: Reports: no symptoms Breasts: Reports: no symptoms Cardiovascular: Reports: no symptoms Gastrointestinal/Abdominal: Reports: no symptoms Genitourinary: Reports: no symptoms Neurologic: Reports: no symptoms Psychiatric: Reports: no symptoms Skin: Reports: no symptoms Endocrine: Reports: no symptoms Hematologic: Reports: no symptoms Musculoskeletal: Reports: no symptoms Allergies: Coded Allergies: CEPHALEXIN (Unverified Allergy, Unknown, 02/24/14) SULFAMETHOXAZOLE (Unverified Allergy, Unknown, 02/24/14) TRIMETHOPRIM (Unverified Allergy, Unknown, 02/24/14) Subjective he was comfortable, lying in bed, awake and responsive, no fever or chills, no significant secretions from the trach , no SOB . has left heel with wound VAC in place, but no draining coming out . no diarrhea . Objective Vital Signs Last 24 Hour Vital Signs Date Time Temp Pulse Resp B/P (MAP) Pulse Ox O2 Delivery O2 Flow Rate FiO2 01/25/19 16:00 40 01/25/19 16:00 Mechanical Ventilator 01/25/19 15:25 68 16 40 01/25/19 13:28 74 18 40 01/25/19 12:00 40 01/25/19 12:00 71 01/25/19 12:00 97.3 24 116/61 (79) 100 01/25/19 12:00 Mechanical Ventilator 01/25/19 11:00 70 20 40 01/25/19 10:00 97 01/25/19 09:37 72 95/48 01/25/19 09:22 72 22 40 01/25/19 08:00 40 01/25/19 08:00 Mechanical Ventilator 01/25/19 08:00 97.7 26 95/48 (64) 100 01/25/19 08:00 71 01/25/19 07:16 64 24 40 01/25/19 05:15 70 25 40 01/25/19 04:00 69 01/25/19 04:00 40 01/25/19 04:00 98.2 22 154/68 (96) 100 01/25/19 04:00 Mechanical Ventilator 01/25/19 03:46 68 24 40 01/25/19 01:22 74 25 40 01/25/19 00:00 40 01/25/19 00:00 69 01/25/19 00:00 Mechanical Ventilator 01/24/19 22:38 70 26 40 01/24/19 21:14 71 24 40 01/24/19 20:43 74 124/61 01/24/19 20:00 71 01/24/19 20:00 40 01/24/19 20:00 97.7 27 124/61 (82) 100 01/24/19 20:00 Mechanical Ventilator 01/24/19 18:56 74 29 40 01/24/19 17:15 81 25 40 Height (Feet): 5 Height (Inches): 4.00 Weight (Pounds): 211 General Appearance: WD/WN, no acute distress HEENT: normocephalic, atraumatic, anicteric, mucous membranes moist, PERRL Respiratory/Chest: chest wall non-tender, lungs clear, normal breath sounds, no respiratory distress, no accessory muscle use Cardiovascular: normal peripheral pulses, normal rate, regular rhythm, no gallop/murmur, no JVD Abdomen: normal bowel sounds, soft, non tender, no organomegaly, non distended , no mass, no scars Genitourinary: normal external genitalia Extremities: no cyanosis, no clubbing Skin: no rash, no lesions, no ulcers 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: translator interpreter 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 normal, no motor/sensory deficits, alert, responsive Lymphatic: no neck adenopathy, no groin adenopathy Musculoskeletal: normal muscle bulk, no effusion Laboratory Tests Test 01/25/19 05:52 White Blood Count 6.2 K/UL (4.8-10.8) Red Blood Count 3.32 M/UL (4.70-6.10) L Hemoglobin 8.3 G/DL (14.2-18.0) L Hematocrit 26.0 % (42.0-52.0) L Mean Corpuscular Volume 78 FL (80-99) L Mean Corpuscular Hemoglobin 25.0 PG (27.0-31.0) L Mean Corpuscular Hemoglobin Concent 31.9 G/DL (32.0-36.0) L Red Cell Distribution Width 16.4 % (11.6-14.8) H Platelet Count 256 K/UL (150-450) Mean Platelet Volume 5.8 FL (6.5-10.1) L Neutrophils (%) (Auto) 70.5 % (45.0-75.0) Lymphocytes (%) (Auto) 20.0 % (20.0-45.0) Monocytes (%) (Auto) 8.6 % (1.0-10.0) Eosinophils (%) (Auto) 0.0 % (0.0-3.0) Basophils (%) (Auto) 0.9 % (0.0-2.0) Sodium Level 131 MMOL/L (136-145) L Potassium Level 3.5 MMOL/L (3.5-5.1) Chloride Level 92 MMOL/L (98-107) L Carbon Dioxide Level 31 MMOL/L (21-32) Anion Gap 8 mmol/L (5-15) Blood Urea Nitrogen 83 mg/dL (7-18) H Creatinine 6.2 MG/DL (0.55-1.30) H Estimat Glomerular Filtration Rate 9.0 mL/min (>60) Glucose Level 187 MG/DL (74-106) H Calcium Level 9.3 MG/DL (8.5-10.1) Phosphorus Level 3.4 MG/DL (2.5-4.9) Total Bilirubin 0.4 MG/DL (0.2-1.0) Aspartate Amino Transf (AST/SGOT) 12 U/L (15-37) L Alanine Aminotransferase (ALT/SGPT) 14 U/L (12-78) Alkaline Phosphatase 128 U/L (46-116) H Total Protein 6.8 G/DL (6.4-8.2) Albumin 2.0 G/DL (3.4-5.0) L Globulin 4.8 g/dL Albumin/Globulin Ratio 0.4 (1.0-2.7) L Current Medications Medications (Trade) Dose Ordered Sig/Aleks Route PRN Reason Start Time Stop Time Status Last Admin Dose Admin Apixaban (Eliquis) 2.5 mg BID GT 01/01/19 21:00 01/31/19 20:59 01/25/19 09:37 Aspirin (ASA) 81 mg DAILY PEG 01/19/19 09:00 02/18/19 08:59 01/25/19 09:36 Atorvastatin Calcium (Lipitor) 10 mg BEDTIME GT 01/18/19 21:00 02/17/19 20:59 01/24/19 20:42 Carvedilol (Coreg) 3.125 mg EVERY 12 HOURS PEG 01/18/19 21:00 02/17/19 20:59 01/24/19 20:43 Clotrimazole (Lotrimin) 1 applic DAILY TOPIC 01/08/19 18:00 02/07/19 17:59 01/25/19 10:24 Collagenase (Santyl) 1 applic DAILY TOPIC 12/29/18 09:00 01/28/19 08:59 01/25/19 10:25 Dextrose (Dextrose 50%) 25 ml Q30M PRN IV Hypoglycemia 12/31/18 23:00 01/30/19 22:59 Dextrose (Dextrose 50%) 50 ml Q30M PRN IV Hypoglycemia 12/31/18 23:00 01/30/19 22:59 Docusate Sodium (Colace) 100 mg TWICE A DAY GT 01/18/19 18:00 02/17/19 17:59 01/24/19 09:23 Epoetin Vini (Epoetin Vini(ESRD on dialysis)) 10,000 unit SUBQ 01/06/19 21:00 02/05/19 20:59 01/22/19 21:21 Escitalopram Oxalate (Lexapro) 20 mg DAILY GT 01/05/19 09:00 02/04/19 08:59 01/25/19 09:36 Hydralazine HCl (Apresoline) 25 mg Q4H PRN GT bp over 160 syst 01/06/19 15:00 02/05/19 14:59 Ibuprofen (Advil) 400 mg TIDPRN PRN ORAL For Pain 01/18/19 11:30 02/17/19 11:29 01/25/19 15:57 Insulin Aspart (NovoLOG) EVERY 6 HOURS SUBQ 01/01/19 00:00 01/31/19 00:00 01/25/19 12:37 Lansoprazole (Prevacid) 30 mg DAILY GT 01/16/19 09:00 02/15/19 08:59 01/25/19 09:36 Loperamide HCl (Imodium) 2 mg Q6H PRN GT Diarrhea 01/07/19 11:00 02/06/19 10:59 01/16/19 04:24 Tacrolimus (Prograf) 2 mg MoWeFr@0000,1200 ORAL 12/28/18 00:00 01/27/19 00:00 01/25/19 12:36 Tacrolimus (Prograf) 2 mg SuTuThSa@0900,2100 ORAL 12/26/18 21:00 01/25/19 20:59 01/24/19 20:43 Francois Landis M.D. Jan 25, 2019 17:00
--- NOTE | 2019-01-25 17:01 | Pulmonology Progress Note ---
Assessment/Plan Assessment/Plan 1. Resp failure, hypercapnic 2. End-stage renal disease, on dialysis, status post multiple upper extremity vascular procedures. 3. Coronary artery bypass surgery. 4. Diabetes. 5. Dysphonia, tongue swelling, resolved; s/p trach 6. Trapped R lung with hydropneumothorax PLAN: weaning as tolerated CXR with trapped lung, stable no further thoracentesis disc w RN stable for subacute Subjective Constitutional: Reports: no symptoms Allergies: Coded Allergies: CEPHALEXIN (Unverified Allergy, Unknown, 02/24/14) SULFAMETHOXAZOLE (Unverified Allergy, Unknown, 02/24/14) TRIMETHOPRIM (Unverified Allergy, Unknown, 02/24/14) Objective Last 24 Hour Vital Signs Date Time Temp Pulse Resp B/P (MAP) Pulse Ox O2 Delivery O2 Flow Rate FiO2 01/25/19 16:00 40 01/25/19 16:00 Mechanical Ventilator 01/25/19 15:25 68 16 40 01/25/19 13:28 74 18 40 01/25/19 12:00 40 01/25/19 12:00 71 01/25/19 12:00 97.3 24 116/61 (79) 100 01/25/19 12:00 Mechanical Ventilator 01/25/19 11:00 70 20 40 01/25/19 10:00 97 01/25/19 09:37 72 95/48 01/25/19 09:22 72 22 40 01/25/19 08:00 40 01/25/19 08:00 Mechanical Ventilator 01/25/19 08:00 97.7 26 95/48 (64) 100 01/25/19 08:00 71 01/25/19 07:16 64 24 40 01/25/19 05:15 70 25 40 01/25/19 04:00 69 01/25/19 04:00 40 01/25/19 04:00 98.2 22 154/68 (96) 100 01/25/19 04:00 Mechanical Ventilator 01/25/19 03:46 68 24 40 01/25/19 01:22 74 25 40 01/25/19 00:00 40 01/25/19 00:00 69 01/25/19 00:00 Mechanical Ventilator 01/24/19 22:38 70 26 40 01/24/19 21:14 71 24 40 01/24/19 20:43 74 124/61 01/24/19 20:00 71 01/24/19 20:00 40 01/24/19 20:00 97.7 27 124/61 (82) 100 01/24/19 20:00 Mechanical Ventilator 01/24/19 18:56 74 29 40 01/24/19 17:15 81 25 40 Intake and Output 01/24/19 01/25/19 19:00 07:00 Intake Total 760 ml 695 ml Output Total 0 ml 0 ml Balance 760 ml 695 ml Free Water 200 ml 200 ml Tube Feeding 540 ml 495 ml Other 20 ml Output Urine Total 0 ml 0 ml # Bowel Movements 2 Objective trach on vent Laboratory Tests 01/25/19 05:52: White Blood Count 6.2, Red Blood Count 3.32L, Hemoglobin 8.3L, Hematocrit 26.0L , Mean Corpuscular Volume 78L, Mean Corpuscular Hemoglobin 25.0L, Mean Corpuscular Hemoglobin Concent 31.9L, Red Cell Distribution Width 16.4H, Platelet Count 256, Mean Platelet Volume 5.8L, Neutrophils (%) (Auto) 70.5, Lymphocytes (%) (Auto) 20.0, Monocytes (%) (Auto) 8.6, Eosinophils (%) (Auto) 0.0, Basophils (%) (Auto) 0.9, Sodium Level 131L, Potassium Level 3.5, Chloride Level 92L, Carbon Dioxide Level 31, Anion Gap 8, Blood Urea Nitrogen 83H, Creatinine 6.2H, Estimat Glomerular Filtration Rate 9.0, Glucose Level 187H, Calcium Level 9.3, Phosphorus Level 3.4, Total Bilirubin 0.4, Aspartate Amino Transf (AST/SGOT) 12L, Alanine Aminotransferase (ALT/SGPT) 14, Alkaline Phosphatase 128H, Total Protein 6.8, Albumin 2.0L, Globulin 4.8, Albumin/ Globulin Ratio 0.4L Current Medications Medications (Trade) Dose Ordered Sig/Aleks Route PRN Reason Start Time Stop Time Status Last Admin Dose Admin Apixaban (Eliquis) 2.5 mg BID GT 01/01/19 21:00 01/31/19 20:59 01/25/19 09:37 Aspirin (ASA) 81 mg DAILY PEG 01/19/19 09:00 02/18/19 08:59 01/25/19 09:36 Atorvastatin Calcium (Lipitor) 10 mg BEDTIME GT 01/18/19 21:00 02/17/19 20:59 01/24/19 20:42 Carvedilol (Coreg) 3.125 mg EVERY 12 HOURS PEG 01/18/19 21:00 02/17/19 20:59 01/24/19 20:43 Clotrimazole (Lotrimin) 1 applic DAILY TOPIC 01/08/19 18:00 02/07/19 17:59 01/25/19 10:24 Collagenase (Santyl) 1 applic DAILY TOPIC 12/29/18 09:00 01/28/19 08:59 01/25/19 10:25 Dextrose (Dextrose 50%) 25 ml Q30M PRN IV Hypoglycemia 12/31/18 23:00 01/30/19 22:59 Dextrose (Dextrose 50%) 50 ml Q30M PRN IV Hypoglycemia 12/31/18 23:00 01/30/19 22:59 Docusate Sodium (Colace) 100 mg TWICE A DAY GT 01/18/19 18:00 02/17/19 17:59 01/24/19 09:23 Epoetin Vini (Epoetin Vini(ESRD on dialysis)) 10,000 unit FRI-FRI-FRI SUBQ 01/06/19 21:00 02/05/19 20:59 01/22/19 21:21 Escitalopram Oxalate (Lexapro) 20 mg DAILY GT 01/05/19 09:00 02/04/19 08:59 01/25/19 09:36 Hydralazine HCl (Apresoline) 25 mg Q4H PRN GT bp over 160 syst 01/06/19 15:00 02/05/19 14:59 Ibuprofen (Advil) 400 mg TIDPRN PRN ORAL For Pain 01/18/19 11:30 02/17/19 11:29 01/25/19 15:57 Insulin Aspart (NovoLOG) EVERY 6 HOURS SUBQ 01/01/19 00:00 01/31/19 00:00 01/25/19 12:37 Lansoprazole (Prevacid) 30 mg DAILY GT 01/16/19 09:00 02/15/19 08:59 01/25/19 09:36 Loperamide HCl (Imodium) 2 mg Q6H PRN GT Diarrhea 01/07/19 11:00 02/06/19 10:59 01/16/19 04:24 Tacrolimus (Prograf) 2 mg MoWeFr@0000,1200 ORAL 12/28/18 00:00 01/27/19 00:00 01/25/19 12:36 Tacrolimus (Prograf) 2 mg SuTuThSa@0900,2100 ORAL 12/26/18 21:00 01/25/19 20:59 01/24/19 20:43 Saroj Mendoza MD Jan 25, 2019 17:01
[2019-01-25 20:00] VITALS: BP 104/57
[2019-01-25] MEDS: Epoetin Alfa-EPBX(ESRD on dialysis)10,000 unit/ml vial SUBQ SCH (20:44)
[2019-01-26] VITALS: BP 132/78
[2019-01-26] MEDS: NovoLOG Insulin Flexpen SUBQ SCH ×5 (00:37→23:17)
--- NOTE | 2019-01-26 07:00 | Progress Note ---
DATE: 01/25/2019 SUBJECTIVE: The patient presents with depressed mood although depressive symptoms have improved. He has good days and bad days. He is more hopeful overall as he is improving. He was more anxious today. MENTAL STATUS EXAMINATION: The patient is alert and oriented x4. Mood is depressed. Affect is constricted, congruent with mood. Thought process is linear. Thought content, no suicidal or homicidal ideation. ASSESSMENT: Major depressive disorder and anxiety disorder. PLAN: We will continue current medication. Provide the patient with reality orientation and supportive therapy. We will continue to follow and readjust the medications. Jeffrey Lala M.D. DR: LU JOB#: [id number] CC:
[2019-01-26 08:00] VITALS: BP 112/76
[2019-01-26] MEDS: Docusate 100mg/10ml Liq GT SCH ×2 (09:00→17:43)
[2019-01-26] MEDS: Eliquis 2.5mg tablet GT SCH ×2 (09:16→17:40)
[2019-01-26] MEDS: Aspirin Baby 81mg PEG SCH (09:22)
--- NOTE | 2019-01-26 10:41 | Nephrology Progress Note ---
Assessment/Plan Problem List: (1) ESRD (end stage renal disease) on dialysis (2) Foot ulcer (3) CHF (congestive heart failure) Assessment: Ej Fx 20 % (4) Pacemaker (5) Acute respiratory failure Assessment: with Co2 retention (6) G-tube site cellulitis Assessment ESRD with high K and SOB on admit Foot ulcer, likely infected High Troponin likely NSTMI Pacer , Pleural effusion s/p CABGS s/p Liver transplant Plan dialysis 3 times weekly M W Fr or extra as needed labs before HD noted BP low- improved on midodrine per consultants, GI GT site infection, topical antibiotic Neuro note appreciated placement in process vascular esteban regarding heel ulcer per Dr Mcgill pain med change to dilaudid GT Now has tracheostomy and PEG Adjust BP meds add nitro paste TID Antibiotics by ID per cardio and ID Podiatry and Vascular surgical fu ? DC planning? Subjective ROS Limited/Unobtainable: No Constitutional: Reports: malaise Objective Objective Last 24 Hour Vital Signs Date Time Temp Pulse Resp B/P (MAP) Pulse Ox O2 Delivery O2 Flow Rate FiO2 01/26/19 09:22 72 143/75 01/26/19 09:09 98 01/26/19 09:07 81 32 40 01/26/19 07:20 78 26 40 01/26/19 05:28 92 26 40 01/26/19 04:00 40 01/26/19 04:00 Mechanical Ventilator 01/26/19 03:45 70 01/26/19 03:30 81 23 40 01/26/19 01:30 79 27 40 01/26/19 00:00 98.1 92 24 132/78 (96) 99 01/26/19 00:00 Mechanical Ventilator 01/25/19 23:08 74 21 40 01/25/19 21:15 78 27 40 01/25/19 20:47 71 137/107 01/25/19 20:00 40 01/25/19 20:00 71 01/25/19 20:00 99.0 105 24 104/57 (73) 98 01/25/19 20:00 Mechanical Ventilator 01/25/19 19:28 72 18 40 01/25/19 17:00 67 18 40 01/25/19 16:00 70 01/25/19 16:00 40 01/25/19 16:00 97.0 26 154/67 (96) 100 01/25/19 16:00 Mechanical Ventilator 01/25/19 15:25 68 16 40 01/25/19 13:28 74 18 40 01/25/19 12:00 40 01/25/19 12:00 71 01/25/19 12:00 97.3 24 116/61 (79) 100 01/25/19 12:00 Mechanical Ventilator 01/25/19 11:00 70 20 40 Intake and Output 01/25/19 01/26/19 18:59 06:59 Intake Total 740 ml 685 ml Output Total 0 ml Balance 740 ml 685 ml Free Water 200 ml 100 ml Tube Feeding 540 ml 585 ml Output Urine Total 0 ml # Bowel Movements 2 Height (Feet): 5 Height (Inches): 4.00 Weight (Pounds): 210 General Appearance: no apparent distress EENT: other - trach Cardiovascular: normal rate Respiratory/Chest: decreased breath sounds Abdomen: distended Objective no other change Nakul Stevens MD Jan 26, 2019 10:41
--- NOTE | 2019-01-26 10:58 | General Progress Note ---
Assessment/Plan Assessment/Plan: #Right heel diabetic foot ulcer without osteomyelitis #PAD #Right IJ DVT -seen by Podiatry and ID -s/p Vanco x 2 weeks during HD -continue Eliquis -Vascular Surgery and Hematology following #Acute Resp hypercapnic failure s/p tracheostomy #Angioedema #Large right pleural effusion # R side trapped lung -continue trach care -Remains vent-dependant, breathing trials ongoing -Right thoracentesis 01/01/19 with 2.3 lt removed. Post procedure CXR with R trapped lung. -Vent weaning per Pulm #End-stage renal disease, on dialysis -W- #RUE edema #Anasarca, ascites, scrotal edema, pleural effusion due to hypoalbuminemia -HD with UF per Nephrology -s/p PRBC transfusion during HD #Coronary artery disease -continue ASA, Coreg, atorvastatin -cardiology following #Type 2 DM -ISS #Acute metabolic encephalopathy -continue supportive care -Neurology following #history of chronic HCV infection #history of liver transplant -continue Prograf -GI following #Abdominal distension and ascites s/p therapeutic paracentesis -no nausea, vomiting or tenderness -continue supportive care -GI following -s/p paracentesis 12/31/18 4.1 lt #Dysphagia S/p PEG with PEG site cellulitis -s/p antibiotics per ID and GI -continue local wound care -tolerating tube feeds #FULL CODE #Dispo planning Subjective Date patient seen: Jan 26, 2019 Time patient seen: 10:55 ROS Limited/Unobtainable: Yes Cardiovascular: Denies: chest pain Gastrointestinal/Abdominal: Denies: abdominal pain Allergies: Coded Allergies: CEPHALEXIN (Unverified Allergy, Unknown, 02/24/14) SULFAMETHOXAZOLE (Unverified Allergy, Unknown, 02/24/14) TRIMETHOPRIM (Unverified Allergy, Unknown, 02/24/14) Subjective Medicine follow up for acute resp failure, PAD, right heel infected DFU, ESRD, anasarca secondary to hypoalbuminemia, right IJ DVT. S/p 4 liter paracentesis and 2 liter thoracentesis. No new complaints. No overnight events. Objective Last 24 Hour Vital Signs Date Time Temp Pulse Resp B/P (MAP) Pulse Ox O2 Delivery O2 Flow Rate FiO2 01/26/19 09:22 72 143/75 01/26/19 09:09 98 01/26/19 09:07 81 32 40 01/26/19 07:20 78 26 40 01/26/19 05:28 92 26 40 01/26/19 04:00 40 01/26/19 04:00 Mechanical Ventilator 01/26/19 03:45 70 01/26/19 03:30 81 23 40 01/26/19 01:30 79 27 40 01/26/19 00:00 98.1 92 24 132/78 (96) 99 01/26/19 00:00 Mechanical Ventilator 01/25/19 23:08 74 21 40 01/25/19 21:15 78 27 40 01/25/19 20:47 71 137/107 01/25/19 20:00 40 01/25/19 20:00 71 01/25/19 20:00 99.0 105 24 104/57 (73) 98 01/25/19 20:00 Mechanical Ventilator 01/25/19 19:28 72 18 40 01/25/19 17:00 67 18 40 01/25/19 16:00 70 01/25/19 16:00 40 01/25/19 16:00 97.0 26 154/67 (96) 100 01/25/19 16:00 Mechanical Ventilator 01/25/19 15:25 68 16 40 01/25/19 13:28 74 18 40 01/25/19 12:00 40 01/25/19 12:00 71 01/25/19 12:00 97.3 24 116/61 (79) 100 01/25/19 12:00 Mechanical Ventilator 01/25/19 11:00 70 20 40 Intake and Output 01/25/19 01/26/19 18:59 06:59 Intake Total 740 ml 685 ml Output Total 0 ml Balance 740 ml 685 ml Free Water 200 ml 100 ml Tube Feeding 540 ml 585 ml Output Urine Total 0 ml # Bowel Movements 2 Height (Feet): 5 Height (Inches): 4.00 Weight (Pounds): 210 General Appearance: no apparent distress, alert Neck: non-tender, supple Cardiovascular: normal rate, regular rhythm Respiratory/Chest: lungs clear, normal breath sounds Abdomen: non tender, soft Dennis Branham MD Jan 26, 2019 10:58
[2019-01-26 12:00] VITALS: BP 109/56
--- NOTE | 2019-01-26 14:09 | Cardiac Electrophysiology PN ---
Assessment/Plan Assessment/Plan 1. Troponin leak due to renal failure. No CP or SOB. Nl EF 2. Hx of CABG. On Coreg, aspirin and Lipitor 3. NSVT in setting of old ND and CABG. EF 55%. Continue Coreg. No Syncope 4. CHF and right pleural effusion. On hemodialysis. S/P Thoracentesis 5. S/P Right sided [employer] DDD pacemaker with Nl Fx. 6. End-stage renal disease, on hemodialysis MWF per Dr. Stevens 7. Multilevel AOD LE's with non-healing Right foot ulcer. Had abdominal angiogram per Dr Salmeron Antibiotic per Dr. Landis. FU by Dr. Huizar S/P peripheral intervention by Dr. Salmeron 12/22/18 8. History of liver transplant on Prograf 9. Respiratory failure, S/P tracheostomy. 10. Pleural effusion. s/p 2300 cc thoracentesis 01/01/19 11. Dysphagia, S/P PEG 12. Difficulty placement DW RN Subjective Subjective Alert in NAD.No CP or SOB. Had HD yesterday. Placement pending Objective Last 24 Hour Vital Signs Date Time Temp Pulse Resp B/P (MAP) Pulse Ox O2 Delivery O2 Flow Rate FiO2 01/26/19 13:00 80 31 40 01/26/19 12:00 97.5 71 24 109/56 (73) 99 01/26/19 12:00 40 01/26/19 12:00 Mechanical Ventilator 01/26/19 11:00 79 24 40 01/26/19 09:22 72 143/75 01/26/19 09:09 98 01/26/19 09:07 81 32 40 01/26/19 08:00 97.5 69 26 112/76 (88) 99 01/26/19 08:00 40 01/26/19 08:00 Mechanical Ventilator 01/26/19 07:33 70 01/26/19 07:20 78 26 40 01/26/19 05:28 92 26 40 01/26/19 04:00 40 01/26/19 04:00 Mechanical Ventilator 01/26/19 03:45 70 01/26/19 03:30 81 23 40 01/26/19 01:30 79 27 40 01/26/19 00:00 98.1 92 24 132/78 (96) 99 01/26/19 00:00 Mechanical Ventilator 01/25/19 23:08 74 21 40 01/25/19 21:15 78 27 40 01/25/19 20:47 71 137/107 01/25/19 20:00 40 01/25/19 20:00 71 01/25/19 20:00 99.0 105 24 104/57 (73) 98 01/25/19 20:00 Mechanical Ventilator 01/25/19 19:28 72 18 40 01/25/19 17:00 67 18 40 01/25/19 16:00 70 01/25/19 16:00 40 01/25/19 16:00 97.0 26 154/67 (96) 100 01/25/19 16:00 Mechanical Ventilator 01/25/19 15:25 68 16 40 Intake and Output 01/25/19 01/26/19 18:59 06:59 Intake Total 740 ml 685 ml Output Total 0 ml Balance 740 ml 685 ml Free Water 200 ml 100 ml Tube Feeding 540 ml 585 ml Output Urine Total 0 ml # Bowel Movements 2 Objective HEAD AND NECK: No JVD. Tracheostomy intact LUNGS: Clear CARDIOVASCULAR: Irregular S1 and S2 with no gallop. Sternotomy is intact Pacemaker in the right subclavian ABDOMEN: Soft. PEG in place EXTREMITIES: Right heel connected to WoundVac Shivam Sharpe MD Jan 26, 2019 14:09
--- NOTE | 2019-01-26 16:06 | Infectious Diseases Prog Note ---
Assessment/Plan Problems: (1) Foot ulcer Assessment & Plan: with MRSA grew out of it in the past, S/P vancomycin treatment with HD for two weeks, had vascular eval with revascularization to the right leg , S/P ulcer resection by flour mixer . deep ulcer culture grew MRSA and E.coli with diphtheroids , possible colonization , with no evidence of active infection as per discussion with podiatry , no need to be started on antibiotics for now , will continue to monitor clinically and make recommendations as necessary . bone scan ruled out osteomyelitis of the heel before, couldn't do an MRI since on the vent . continue local wound care as per flour mixer . (2) Diarrhea Assessment & Plan: improved, with no infectious etiology so far , and negative stool for C diff toxin , and no pathogens on stool culture , use laxatives as needed , monitor clinically , encourage hydration (3) Thrush, oral Assessment & Plan: resolved with local nystatin as needed , S/P micafungin for three weeks empirically (4) HCV antibody positive Assessment & Plan: no evidence of active infection, with undetectable viral load , suspect due to previous infection , cleared, S/P liver transplant . (5) DM (diabetes mellitus) Assessment & Plan: recommend tight glycemic control to keep blood glucose between 100-140 (6) CHF (congestive heart failure) Assessment & Plan: on HD , renal is following, monitor daily weight , S/P multiple thoracentesis (7) Severe tongue swelling Assessment & Plan: improving , s/p tracheostomy to protect his airway since respiratory status worsened . now improving, pulmonary is following (8) Pleural effusion Assessment & Plan: recurrent on the right, with lung collapse , S/P thoracentesis X 3 now with removal of 2.3 liters of clear fluids on 12/31/18 . await fluids culture and gram stain, with PH and Glucose level . PREVIOUS culture were negative with negative cytology. pulmonary is following (9) Ascites Assessment & Plan: S/P paracentesis with removal of 4.1 liters of fluids, culture so far is negative Assessment/Plan will continue to monitor patient on daily basis and make recommendations as necessary since he is high risk for recurrent infection Subjective Constitutional: Reports: no symptoms HEENT: Reports: no symptoms Respiratory: Reports: no symptoms Breasts: Reports: no symptoms Cardiovascular: Reports: no symptoms Gastrointestinal/Abdominal: Reports: no symptoms Genitourinary: Reports: no symptoms Neurologic: Reports: no symptoms Psychiatric: Reports: no symptoms Skin: Reports: no symptoms Endocrine: Reports: no symptoms Hematologic: Reports: no symptoms Musculoskeletal: Reports: no symptoms Allergies: Coded Allergies: CEPHALEXIN (Unverified Allergy, Unknown, 02/24/14) SULFAMETHOXAZOLE (Unverified Allergy, Unknown, 02/24/14) TRIMETHOPRIM (Unverified Allergy, Unknown, 02/24/14) Subjective he was comfortable, lying in bed, awake and responsive, no fever or chills, no significant secretions from the trach , no SOB . has left heel with wound VAC in place, but no draining coming out . no diarrhea . Objective Vital Signs Last 24 Hour Vital Signs Date Time Temp Pulse Resp B/P (MAP) Pulse Ox O2 Delivery O2 Flow Rate FiO2 01/26/19 15:33 74 23 40 01/26/19 13:00 80 31 40 01/26/19 12:00 97.5 71 24 109/56 (73) 99 01/26/19 12:00 40 01/26/19 12:00 Mechanical Ventilator 01/26/19 11:00 79 24 40 01/26/19 09:22 72 143/75 01/26/19 09:09 98 01/26/19 09:07 81 32 40 01/26/19 08:00 97.5 69 26 112/76 (88) 99 01/26/19 08:00 40 01/26/19 08:00 Mechanical Ventilator 01/26/19 07:33 70 01/26/19 07:20 78 26 40 01/26/19 05:28 92 26 40 01/26/19 04:00 40 01/26/19 04:00 Mechanical Ventilator 01/26/19 03:45 70 01/26/19 03:30 81 23 40 01/26/19 01:30 79 27 40 01/26/19 00:00 98.1 92 24 132/78 (96) 99 01/26/19 00:00 Mechanical Ventilator 01/25/19 23:08 74 21 40 01/25/19 21:15 78 27 40 01/25/19 20:47 71 137/107 01/25/19 20:00 40 01/25/19 20:00 71 01/25/19 20:00 99.0 105 24 104/57 (73) 98 01/25/19 20:00 Mechanical Ventilator 01/25/19 19:28 72 18 40 01/25/19 17:00 67 18 40 Height (Feet): 5 Height (Inches): 4.00 Weight (Pounds): 210 General Appearance: WD/WN, no acute distress HEENT: normocephalic, atraumatic, anicteric, mucous membranes moist, PERRL, EOMI, pharynx normal, supple, no JVD, status post trach Respiratory/Chest: chest wall non-tender, lungs clear, no accessory muscle use , decreased breath sounds, crackles/rales Cardiovascular: normal peripheral pulses, normal rate, regular rhythm, no gallop/murmur, no JVD Abdomen: normal bowel sounds, soft, non tender, no organomegaly, non distended , no mass, no scars Extremities: no cyanosis, no clubbing Skin: no rash, no lesions, ulcers 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: alert, responsive Lymphatic: no neck adenopathy, no groin adenopathy Musculoskeletal: normal muscle bulk, no effusion Current Medications Medications (Trade) Dose Ordered Sig/Aleks Route PRN Reason Start Time Stop Time Status Last Admin Dose Admin Apixaban (Eliquis) 2.5 mg BID GT 01/01/19 21:00 01/31/19 20:59 01/26/19 09:16 Aspirin (ASA) 81 mg DAILY PEG 01/19/19 09:00 02/18/19 08:59 01/26/19 09:22 Atorvastatin Calcium (Lipitor) 10 mg BEDTIME GT 01/18/19 21:00 02/17/19 20:59 01/25/19 20:45 Carvedilol (Coreg) 3.125 mg EVERY 12 HOURS PEG 01/18/19 21:00 02/17/19 20:59 01/26/19 09:22 Clotrimazole (Lotrimin) 1 applic DAILY TOPIC 01/08/19 18:00 02/07/19 17:59 01/25/19 10:24 Collagenase (Santyl) 1 applic DAILY TOPIC 12/29/18 09:00 01/28/19 08:59 01/25/19 10:25 Dextrose (Dextrose 50%) 25 ml Q30M PRN IV Hypoglycemia 12/31/18 23:00 01/30/19 22:59 Dextrose (Dextrose 50%) 50 ml Q30M PRN IV Hypoglycemia 12/31/18 23:00 01/30/19 22:59 Docusate Sodium (Colace) 100 mg TWICE A DAY GT 01/18/19 18:00 02/17/19 17:59 01/24/19 09:23 Epoetin Vini (Epoetin Vini(ESRD on dialysis)) 10,000 unit FRI- SUBQ 01/06/19 21:00 02/05/19 20:59 01/25/19 20:44 Escitalopram Oxalate (Lexapro) 20 mg DAILY GT 01/05/19 09:00 02/04/19 08:59 01/26/19 09:23 Hydralazine HCl (Apresoline) 25 mg Q4H PRN GT bp over 160 syst 01/06/19 15:00 02/05/19 14:59 Ibuprofen (Advil) 400 mg TIDPRN PRN ORAL For Pain 01/18/19 11:30 02/17/19 11:29 01/26/19 02:16 Insulin Aspart (NovoLOG) EVERY 6 HOURS SUBQ 01/01/19 00:00 01/31/19 00:00 01/26/19 12:21 Lansoprazole (Prevacid) 30 mg DAILY GT 01/16/19 09:00 02/15/19 08:59 01/26/19 09:23 Loperamide HCl (Imodium) 2 mg Q6H PRN GT Diarrhea 01/07/19 11:00 02/06/19 10:59 01/16/19 04:24 Tacrolimus (Prograf) 2 mg MoWeFr@0000,1200 ORAL 12/28/18 00:00 01/27/19 00:00 01/25/19 12:36 Francois Landis M.D. Jan 26, 2019 16:06
--- NOTE | 2019-01-26 17:22 | Hematology/Onc Progress Note ---
Assessment/Plan Assessment/Plan Assessment and Recs: # Anemia of chronic disease due to underlying chronic medical issues, range has been 8-11, ferritin is 633, tibc is low --> Pt refused 01/21/19 am lab [facility]ott. --> No evidence of hemolysis is noted, peripheral smear has been reviewed. --> Epogen with HD 3x/wk --> Medications have been reviewed --> evaluate with Gi team prn --> transfuse if hgb is < 7 (will trend CBC daily) --> hgb trend 11.2-->10.9-->10.8-->10.7-->10.2-->9.7-->9.7-->8.5-->9-->9.2-->8.4 -->7.7-->8.8-->9.1-->8.6-->8.3-->8.9 --> s/p transfusion on 01/06 # Failure to thrive is likely related to poor overall status, poor functional status --> GT++ as per gi --> with multiple decub ulcerations that are noted, seen by id/surgery --> s/p trach as well --> cea is wnl # Acute non-occlusive dvt, right extremity ultrasound (acute non-occlusive DVT in internal jugular) --> currently is on eliquis 2.5mg po bid --> do not recommend a SVC filter --> given prior bleeding risk, hold off on heparin gtt --> vasc surgeon is aware, seek recs # Coagulopathy likely secondary to decreased Vitk dependent cofactors (high INR , PT) --> monitor closely for any evidence of bleeding. Currently is on eliquis --> VIT K on prn basis sq can be administered --> recently has improved inr 1.2-->1.1-->1.2-->1.1-->1.1 # Acute respiratory failure is now s/p trach to vent --> as per surgery recs # Ground glass opacities present on imaging of lung --> with pleural effusions, s/p drainage at this time --> no evidence for malignancy is noted --> as per pulm/id # Pleural effusion --> s/p thoracentesis, s/p paracentesis 12/31 --> no evidence of malignancy -->01/14 cxr: Interstitial edema, small left pleural effusion # Hyperkalemia --> kayxelate on prn basis per renal --> monitor K+ # Renal failure --> per renal recs, appreciated --> getting hd as per schedule 3x week # Altered level of consciousness --> currently as per baseline --> neuro eval prn # PAD off heparin gtt and now on eliquis --> per vasc and cards --> 12/22 s/p right leg angiogram with intervention --> on eliquis, continue # Gt tube cellulitis, on topical abx as per id around site The timing of this note does not necessarily reflect the time of the patient was seen. Greatly appreciate consultation! Subjective Constitutional: Denies: no symptoms, chills, fever, malaise, weakness, other HEENT: Denies: no symptoms, eye pain, blurred vision, tearing, double vision, ear pain, ear discharge, nose pain, nose congestion, throat pain, throat swelling, mouth pain, mouth swelling, other Cardiovascular: Denies: no symptoms, chest pain, edema, irregular heart rate, lightheadedness, palpitations, syncope, other Respiratory: Denies: no symptoms, cough, shortness of breath, SOB with excertion, SOB at rest, sputum, wheezing, other Genitourinary: Denies: no symptoms, burning, discharge, frequency, flank pain, hematuria, incontinence, pain, urgency, other 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: Denies: no symptoms, anxiety, depressed, emotional problems, headache, numbness, paresthesia, pre-existing deficit, seizure, tingling, tremors, weakness, other Allergies: Coded Allergies: CEPHALEXIN (Unverified Allergy, Unknown, 02/24/14) SULFAMETHOXAZOLE (Unverified Allergy, Unknown, 02/24/14) TRIMETHOPRIM (Unverified Allergy, Unknown, 02/24/14) Subjective 11/30: comfortable, on abx, no complaints, on t-piece 12/01: to have hd done potentially tomorrow, is more alert/awake 12/02: no major bleeding, hgb remains approx 11, no changes 12/03: no events, breathing mildly better, hgb is improved 12/04: on vent/trach, no major changes, sr ekg 12/10: small amount of secretions, on trach/vent, no issues otherwise 12/11: no major issues, no complaints, labs reviewed, no sig changes 12/13: no events to report, no fevers or chills, awaiting placement 12/14: no changes, no major events to report, no fevers or chills 12/15: pending placement, getting gt feeds and hd as per renal 12/16: labs have been reviewed, cbc noted, no changes 12/17: no events, no fevers, no cp, hgb remains stable 12/18: restarted on heparin gtt, seen by pulm, cards 12/20: continues to be on heparin gtt, no bleeding reported, no f/c 12/21: hd for today, no fevers or chils, off hep gtt on eliquis 12/22: to get hd tomorrow, today is s/p right leg angiogram with intervention 12/23: hgb remins stable, no fevers or chills reported 12/24: no events, no bleeding, vitals reviewed, cbc stable 12/25: no events, no bleeding, on vent, hgb 9 12/27: no changes, no f/c, no night swearts, seen with other providers 12/28: right extremity ultrasound (acute non-occlusive DVT in internal jugular, on eliquis 12/29: no events, no night sweats, seen by gi, no bleeding 12/30: cbc has been reviewed, no f/c, no night sweats reported 12/31: no events, eliquis is on hold cbc has been reviewed, bp elevated 01/01: no fevers or chills, cbc reviewed, hgb 9.3, getting HD 01/02: no events noted, getting norco for pain, hgb stable 01/04: not events to report, no bleeding, refusing ivl at this time, cbc reviewed 01/05: no fevers or chills noted, s/p trach/vent, no f/c, no chills noted 01/06: no events, to get 1 unit prbc today, renal seen, on abx 01/07: hd for tomorrow, seen by renal, no events, cbc reviewed 01/08: getting Hd today, seen by renal, no major events, in sr 01/10: no events to report, to get hd tomorrow, hgb stable 01/11: on vent/trach, gtube, tolerating treatment well, hd today 01/12: remains nonverbal, stable, on vent/trach, no fc 01/13: no events noted, cbc has been reviewed 01/14: thora and para fluid still neg for malignancy, no bleeding 01/15: Pt examined at bedside. No acute events. Pt refusing IV access per nursing per nursing team. 01/17: Pt is awake and alert. Pt in stable condition. Hgb trending down: 8.3 will continue to monitor 01/18: Pt complain of abdominal pain and DIAZ. Hgb trend 8.3-->8.9 01/19: no events, cbc has been reviewed, hgb is stable today 01/20: Awake and alert, able to follow commands. Remains on vent. 01/21: Patient awake in bed. Trach to vent. Pt refused am lab draw. 01/22: no events, dc planning 01/23: no events, dc planning, on epogen and eliquis 01/26: no events, no f/c, tolerating trach well, hD prn Objective Objective Current Medications Medications (Trade) Dose Ordered Sig/Aleks Route PRN Reason Start Time Stop Time Status Last Admin Dose Admin Apixaban (Eliquis) 2.5 mg BID GT 01/01/19 21:00 01/31/19 20:59 01/26/19 09:16 Aspirin (ASA) 81 mg DAILY PEG 01/19/19 09:00 02/18/19 08:59 01/26/19 09:22 Atorvastatin Calcium (Lipitor) 10 mg BEDTIME GT 01/18/19 21:00 02/17/19 20:59 01/25/19 20:45 Carvedilol (Coreg) 3.125 mg EVERY 12 HOURS PEG 01/18/19 21:00 02/17/19 20:59 01/26/19 09:22 Clotrimazole (Lotrimin) 1 applic DAILY TOPIC 01/08/19 18:00 02/07/19 17:59 01/25/19 10:24 Collagenase (Santyl) 1 applic DAILY TOPIC 12/29/18 09:00 01/28/19 08:59 01/25/19 10:25 Dextrose (Dextrose 50%) 25 ml Q30M PRN IV Hypoglycemia 12/31/18 23:00 01/30/19 22:59 Dextrose (Dextrose 50%) 50 ml Q30M PRN IV Hypoglycemia 12/31/18 23:00 01/30/19 22:59 Docusate Sodium (Colace) 100 mg TWICE A DAY GT 01/18/19 18:00 02/17/19 17:59 01/24/19 09:23 Epoetin Vini (Epoetin Vini(ESRD on dialysis)) 10,000 unit FRI-FRI-FRI SUBQ 01/06/19 21:00 02/05/19 20:59 01/25/19 20:44 Escitalopram Oxalate (Lexapro) 20 mg DAILY GT 01/05/19 09:00 02/04/19 08:59 01/26/19 09:23 Hydralazine HCl (Apresoline) 25 mg Q4H PRN GT bp over 160 syst 01/06/19 15:00 02/05/19 14:59 Ibuprofen (Advil) 400 mg TIDPRN PRN ORAL For Pain 01/18/19 11:30 02/17/19 11:29 01/26/19 02:16 Insulin Aspart (NovoLOG) EVERY 6 HOURS SUBQ 01/01/19 00:00 01/31/19 00:00 01/26/19 12:21 Lansoprazole (Prevacid) 30 mg DAILY GT 01/16/19 09:00 02/15/19 08:59 01/26/19 09:23 Loperamide HCl (Imodium) 2 mg Q6H PRN GT Diarrhea 01/07/19 11:00 02/06/19 10:59 01/16/19 04:24 Tacrolimus (Prograf) 2 mg MoWeFr@0000,1200 ORAL 12/28/18 00:00 01/27/19 00:00 01/25/19 12:36 Last 24 Hour Vital Signs Date Time Temp Pulse Resp B/P (MAP) Pulse Ox O2 Delivery O2 Flow Rate FiO2 01/26/19 16:00 40 01/26/19 16:00 Mechanical Ventilator 01/26/19 15:33 74 23 40 01/26/19 15:27 72 01/26/19 13:00 80 31 40 01/26/19 12:00 97.5 71 24 109/56 (73) 99 01/26/19 12:00 40 01/26/19 12:00 Mechanical Ventilator 01/26/19 11:48 72 01/26/19 11:00 79 24 40 01/26/19 09:22 72 143/75 01/26/19 09:09 98 01/26/19 09:07 81 32 40 01/26/19 08:00 97.5 69 26 112/76 (88) 99 01/26/19 08:00 40 01/26/19 08:00 Mechanical Ventilator 01/26/19 07:33 70 01/26/19 07:20 78 26 40 01/26/19 05:28 92 26 40 01/26/19 04:00 40 01/26/19 04:00 Mechanical Ventilator 01/26/19 03:45 70 01/26/19 03:30 81 23 40 01/26/19 01:30 79 27 40 01/26/19 00:00 98.1 92 24 132/78 (96) 99 01/26/19 00:00 Mechanical Ventilator 01/25/19 23:08 74 21 40 01/25/19 21:15 78 27 40 01/25/19 20:47 71 137/107 01/25/19 20:00 40 01/25/19 20:00 71 01/25/19 20:00 99.0 105 24 104/57 (73) 98 01/25/19 20:00 Mechanical Ventilator 01/25/19 19:28 72 18 40 01/25/19 17:00 67 18 40 01/25/19 16:00 70 01/25/19 16:00 40 01/25/19 16:00 97.0 26 154/67 (96) 100 01/25/19 16:00 Mechanical Ventilator 01/25/19 15:25 68 16 40 01/25/19 13:28 74 18 40 01/25/19 12:00 40 01/25/19 12:00 71 01/25/19 12:00 97.3 24 116/61 (79) 100 01/25/19 12:00 Mechanical Ventilator 01/25/19 11:00 70 20 40 01/25/19 10:00 97 6/10/19 09:37 72 95/48 01/25/19 09:22 72 22 40 01/25/19 08:00 40 01/25/19 08:00 Mechanical Ventilator 01/25/19 08:00 97.7 26 95/48 (64) 100 01/25/19 08:00 71 01/25/19 07:16 64 24 40 01/25/19 05:15 70 25 40 01/25/19 04:00 69 01/25/19 04:00 40 01/25/19 04:00 98.2 22 154/68 (96) 100 01/25/19 04:00 Mechanical Ventilator 01/25/19 03:46 68 24 40 01/25/19 01:22 74 25 40 01/25/19 00:00 40 01/25/19 00:00 69 01/25/19 00:00 Mechanical Ventilator 01/24/19 22:38 70 26 40 01/24/19 21:14 71 24 40 01/24/19 20:43 74 124/61 01/24/19 20:00 71 01/24/19 20:00 40 01/24/19 20:00 97.7 27 124/61 (82) 100 01/24/19 20:00 Mechanical Ventilator 01/24/19 18:56 74 29 40 Intake and Output 01/25/19 01/26/19 19:00 07:00 Intake Total 785 ml 595 ml Output Total 0 ml Balance 785 ml 595 ml Free Water 200 ml 100 ml Tube Feeding 585 ml 495 ml Output Urine Total 0 ml # Bowel Movements 2 Labs Test 01/25/19 05:52 White Blood Count 6.2 K/UL (4.8-10.8) Red Blood Count 3.32 M/UL (4.70-6.10) Hemoglobin 8.3 G/DL (14.2-18.0) Hematocrit 26.0 % (42.0-52.0) Mean Corpuscular Volume 78 FL (80-99) Mean Corpuscular Hemoglobin 25.0 PG (27.0-31.0) Mean Corpuscular Hemoglobin Concent 31.9 G/DL (32.0-36.0) Red Cell Distribution Width 16.4 % (11.6-14.8) Platelet Count 256 K/UL (150-450) Mean Platelet Volume 5.8 FL (6.5-10.1) Neutrophils (%) (Auto) 70.5 % (45.0-75.0) Lymphocytes (%) (Auto) 20.0 % (20.0-45.0) Monocytes (%) (Auto) 8.6 % (1.0-10.0) Eosinophils (%) (Auto) 0.0 % (0.0-3.0) Basophils (%) (Auto) 0.9 % (0.0-2.0) Sodium Level 131 MMOL/L (136-145) Potassium Level 3.5 MMOL/L (3.5-5.1) Chloride Level 92 MMOL/L (98-107) Carbon Dioxide Level 31 MMOL/L (21-32) Anion Gap 8 mmol/L (5-15) Blood Urea Nitrogen 83 mg/dL (7-18) Creatinine 6.2 MG/DL (0.55-1.30) Estimat Glomerular Filtration Rate 9.0 mL/min (>60) Glucose Level 187 MG/DL (74-106) Calcium Level 9.3 MG/DL (8.5-10.1) Phosphorus Level 3.4 MG/DL (2.5-4.9) Total Bilirubin 0.4 MG/DL (0.2-1.0) Aspartate Amino Transf (AST/SGOT) 12 U/L (15-37) Alanine Aminotransferase (ALT/SGPT) 14 U/L (12-78) Alkaline Phosphatase 128 U/L (46-116) Total Protein 6.8 G/DL (6.4-8.2) Albumin 2.0 G/DL (3.4-5.0) Globulin 4.8 g/dL Albumin/Globulin Ratio 0.4 (1.0-2.7) Height (Feet): 5 Height (Inches): 4.00 Weight (Pounds): 210 Objective PE General Appearance: mild distress, moderate distress Lines, tubes and drains: peripheral HEENT: EOMI, ++ thrush, tonsils swollen ++trach Neck: normal inspection Respiratory/Chest: decreased breath sounds, accessory muscle use. VENT++ Cardiovascular/Chest: tachycardia Abdomen: soft, no organomegaly, no mass, ++ peg Extremities: other Skin Exam: warm/dry, rash Neurologic: alert, responsive Zacarias Khoury MD Jan 26, 2019 17:22
--- NOTE | 2019-01-26 17:58 | Neurology Progress Note ---
Interim History Interim History Interim History Mr. Restrepo feels unwell. His mood is again down and his spirits low. He was able to sleep relatively well last night. He is being weaned off the ventilator and is comfortable. He is alert and bright. The right heel pain is about the same - and it is healing well. The right upper extremity is still swollen but less painful. He is still artificially ventilated. He feels that his strength is stable. The mind is clear. He denies any new neurological symptoms. He is still worried about his hearing. He has had no PT for quite a few days. Review of Systems Neuro Review of Systems Benign. Objective Physical Exam Last Vital Signs Date Time Temp Pulse Resp B/P (MAP) Pulse Ox O2 Delivery O2 Flow Rate FiO2 01/26/19 17:20 80 24 40 01/26/19 16:00 Mechanical Ventilator 01/26/19 12:00 97.5 109/56 (73) 99 Neurologic Exam Objective PHYSICAL EXAMINATION: GENERAL: He is a well-developed, well-nourished, pleasant gentleman, lying in bed, connected to a ventilator via a tracheostomy. HEAD: Normocephalic and atraumatic. EENT: Examination benign. NECK: No neck rigidity was observed. He did have a tracheostomy. NEUROLOGICAL EXAMINATION: MENTAL STATUS EXAMINATION: He was awake and alert. He was oriented to person, place and time. He was able to recall 3/3 words immediately and was able to remember them in 1 and 3 minutes. He was able to remember presidents Trump through Mak Keny. His mathematical skills were fair. His visuospatial function was preserved. SPEECH: Could not be tested, but he was able to mouth words relatively well. LANGUAGE: He was able to comprehend and express himself relatively well. CRANIAL NERVES EXAMINATION: II: The visual mckeon were intact to confrontation testing. III, IV & : The external ocular movements were full and the pupils 3 mm in diameter, equal, round, regular, and reactive sluggishly to light. V: He had normal facial sensations, and the temporales, masseters, and pterygoids functioned normally. VII: He had normal facial expressions and no facial asymmetry. VIII: Hearing was decreased bilaterally with worse hearing on the left side compared to the right. IX: The palate moved symmetrically on phonation. X: Could not be tested. XI: The sternocleidomastoids and trapezii functioned normally. XII: The tongue was in the midline without any fasciculations or atrophy. MOTOR SYSTEM: The tone was normal in all four extremities. Examination of muscle mass revealed generalized muscle wasting. Examination of power revealed G 5/5 power except for G 4+/5 power in the iliopsoas muscles bilaterally. SENSORY EXAMINATION: He had intact sensations to light touch. Other sensory modalities could not be tested adequately. REFLEXES: 1+ and bilaterally symmetrical at the biceps, triceps, brachioradialis , and knees, 0 at both ankles. The plantar responses were flexor bilaterally. COORDINATION: He performed well on [id number] testing. STANCE & GAIT: Were deferred. Impression/Recommendations Diagnostic Impression 1. Mr. Gregg Restrepo is a 69-year-old, right-handed, gentleman with past history of multiple medical problems including hypertension, diabetes mellitus, end-stage renal disease for which he is hemodialysis dependent, prior episodes of sepsis, and prior episodes of encephalopathy, who was admitted to [facility] on October 31, 2018. Following that, he has had a stormy hospital course including pneumonia and sepsis, right foot infection, respiratory failure for which he has needed tracheostomy and in addition he has exhibited an alteration in his mental state with some waxing and waning of his mental state. 2. He feels unwell. His mood is again down and his spirits low. He was able to sleep relatively well last night. He is being weaned off the ventilator and is comfortable. He is alert and bright. The right heel pain is about the same - and it is healing well. The right upper extremity is still swollen but less painful. He is still artificially ventilated. He feels that his strength is stable. The mind is clear. He denies any new neurological symptoms. He is still worried about his hearing. He has had no PT for quite a few days. 3. On neurological examination, at this time, he is fully oriented, his recent memory is normal. He has minimally impaired higher cognitive function. He is able to comprehend and express himself well. He does have mild G 4+/5 weakness in the iliopsoas muscles bilaterally. He had globally diminished deep tendon reflexes with loss of ankle jerks, but no definite focal or lateralizing neurological findings. 4. His latest laboratory data on my initial evaluation revealed that he was anemic with a hemoglobin of 10.8 G. His last blood gas performed on 11/14/2018 revealed that he had a pCO2 elevated at 56.4 with a normal pO2 of 88.3 and normal pH of 7.37. His latest chemistry panel revealed that he was mildly hyponatremic with a sodium of 130, and had a chloride of 90. The BUN was elevated at 75, creatinine elevated at 7.4, glucose elevated at 156, Hemoglobin A1c elevated at 6.9%, Alkaline phosphatase elevated at 131, and ProBNP greater than 35,000. His last B12 level on 11/07/2018 was 723. His last folate on was 18.6. His last TSH on 12/06/2018 was 4.82, which is minimally elevated. 5. The CT scan of the brain performed on 11/10/2018 was benign for acute intracranial pathology. 6. The EEG done on 12/08/18 revealed left temporal dysfunction. 7. The patient's history and neurological examination are most consistent with mild multifactorial encephalopathy, which apparently waxes and wanes, but no definite focal neurological dysfunction. His encephalopathy is stable. 8. He tells me that he had a brain bleed many years ago. I did review his imaging done at [facility] a few years ago and he had closed head injuries with subarachnoid and subdural blood in the past. 9. His mood is down again. 10. There has never been a doubt regarding his ability to make decisions regarding his medical care. 11. He is worried about his hearing. 12. As per his speech pathologists, they will continue to follow him for swallowing therapy. Recommendations 1. Continue present management. 2. Continue to correct the patient's toxic metabolic imbalances. 3. Mobilize with PT/OT. 4. Consider ENT evaluation for hearing loss. 5. Watch mood closely. 6. Observe. Pantera Cool M.D., M.S.P.H. Pantera Cool MD Jan 26, 2019 17:58
[2019-01-26 20:00] VITALS: BP 140/60
[2019-01-27] VITALS: BP 150/71
--- NOTE | 2019-01-27 03:45 | Progress Note ---
DATE: 01/26/2019 SUBJECTIVE: are same. No behavior issues. The patient continues to be depressed. Low energy, anxiety. Focused on his date of discharge. MENTAL STATUS EXAMINATION: Alert and oriented times self, place, and situation. Mood is depressed. Affect is constricted, congruent with mood. Thought process is linear. Thought content, no suicidal or homicidal ideations. ASSESSMENT: Depression. PLAN: We will continue current medication. Provide the patient with reality orientation and supportive therapy. Jeffrey Lala M.D. DR: LAINE JOB#: [id number] CC:
[2019-01-27] MEDS: NovoLOG Insulin Flexpen SUBQ SCH ×3 (05:22→18:00)
[2019-01-27 08:00] VITALS: BP 155/74
[2019-01-27] MEDS: Docusate 100mg/10ml Liq GT SCH ×2 (09:00→18:00)
[2019-01-27] MEDS: Aspirin Baby 81mg PEG SCH (09:07)
[2019-01-27] MEDS: Eliquis 2.5mg tablet GT SCH ×2 (09:07→18:12)
--- NOTE | 2019-01-27 09:15 | General Progress Note ---
Assessment/Plan Problem List: (1) Transplant ICD Codes: Z94.9 - Transplanted organ and tissue status, unspecified SNOMED: 707533562 (2) HTN (hypertension) ICD Codes: I10 - Essential (primary) hypertension SNOMED: 37906293 (3) Pacemaker ICD Codes: Z95.0 - Presence of cardiac pacemaker SNOMED: 047072978 (4) CHF (congestive heart failure) ICD Codes: I50.9 - Heart failure, unspecified SNOMED: 50937285 (5) DM (diabetes mellitus) ICD Codes: E11.9 - Type 2 diabetes mellitus without complications SNOMED: 41461473 (6) Foot ulcer ICD Codes: L97.509 - Non-pressure chronic ulcer of other part of unspecified foot with unspecified severity SNOMED: 27888733 Qualifiers: Qualified Codes: L97.511 - Non-pressure chronic ulcer of other part of right foot limited to breakdown of skin (7) ESRD (end stage renal disease) on dialysis ICD Codes: N18.6 - End stage renal disease; Z99.2 - Dependence on renal dialysis SNOMED: 237847819 Assessment/Plan: History of liver transplant, currently on Prograf History of cholecystectomy status post tracheostomy and PEG Infected G-tube site, fu ID recs C. difficile negative x 2 would care cx >> GRAM NEGATIVE BACILLUS CT AP reviewed, Moderate to large right pleural effusion. Moderate Ascites. s/p Paracentesis yielding 4.1 yield, r/o SBP >> negative for malignant cells Status post right thoracentesis yielding 2.1 L >> negative for malignant cells Continue G-tube feedings GT site care BID/prn topical abx around GT site per ID HD per nephro cont tacrolimus prn transfusions ppi zofran prn Imodium prn, Lomotil for persistent diarrhea follow labs supportive care outpatient Hep C tx, pending RNA PCR monitor LFTS Lomotil prn Subjective ROS Limited/Unobtainable: No Allergies: Coded Allergies: CEPHALEXIN (Unverified Allergy, Unknown, 02/24/14) SULFAMETHOXAZOLE (Unverified Allergy, Unknown, 02/24/14) TRIMETHOPRIM (Unverified Allergy, Unknown, 02/24/14) Subjective he pulled his NGT again Objective Last 24 Hour Vital Signs Date Time Temp Pulse Resp B/P (MAP) Pulse Ox O2 Delivery O2 Flow Rate FiO2 01/27/19 09:06 68 22 40 01/27/19 07:06 62 25 40 01/27/19 05:05 76 26 40 01/27/19 04:00 Mechanical Ventilator 01/27/19 04:00 75 01/27/19 04:00 40 01/27/19 02:56 75 25 40 01/27/19 01:08 74 3 40 01/27/19 00:00 98.1 73 21 150/71 (97) 99 01/27/19 00:00 Mechanical Ventilator 01/27/19 00:00 40 01/27/19 00:00 76 01/26/19 23:08 78 25 40 01/26/19 21:14 80 28 40 01/26/19 20:56 76 140/48 01/26/19 20:00 40 01/26/19 20:00 74 01/26/19 20:00 97.9 74 21 140/60 (86) 99 01/26/19 20:00 Mechanical Ventilator 01/26/19 19:20 75 25 40 01/26/19 17:20 80 24 40 01/26/19 16:00 40 01/26/19 16:00 Mechanical Ventilator 01/26/19 15:33 74 23 40 01/26/19 15:27 72 01/26/19 13:00 80 31 40 01/26/19 12:00 97.5 71 24 109/56 (73) 99 01/26/19 12:00 40 01/26/19 12:00 Mechanical Ventilator 01/26/19 11:48 72 01/26/19 11:00 79 24 40 01/26/19 09:22 72 143/75 Intake and Output 01/26/19 01/27/19 19:00 07:00 Intake Total 495 ml 795 ml Balance 495 ml 795 ml Free Water 300 ml Tube Feeding 495 ml 495 ml # Bowel Movements 1 3 Height (Feet): 5 Height (Inches): 4.00 Weight (Pounds): 211 General Appearance: alert EENT: normal ENT inspection Neck: normal alignment Cardiovascular: normal rate Respiratory/Chest: decreased breath sounds Abdomen: normal bowel sounds, non tender, soft Extremities: non-tender Jorge Escalera MD Jan 27, 2019 09:15
--- NOTE | 2019-01-27 11:48 | Hematology/Onc Progress Note ---
Assessment/Plan Assessment/Plan Assessment and Recs: # Anemia of chronic disease due to underlying chronic medical issues, range has been 8-11, ferritin is 633, tibc is low --> Pt refused 01/21/19 am lab scott. --> No evidence of hemolysis is noted, peripheral smear has been reviewed. --> Epogen with HD 3x/wk --> Medications have been reviewed --> evaluate with Gi team prn --> transfuse if hgb is < 7 (will trend CBC daily) --> hgb trend 11.2-->10.9-->10.8-->10.7-->10.2-->9.7-->9.7-->8.5-->9-->9.2-->8.4 -->7.7-->8.8-->9.1-->8.6-->8.3-->8.9 --> s/p transfusion on 01/06 # Failure to thrive is likely related to poor overall status, poor functional status --> GT++ as per gi --> with multiple decub ulcerations that are noted, seen by id/surgery --> s/p trach as well --> cea is wnl # Acute non-occlusive dvt, right extremity ultrasound (acute non-occlusive DVT in internal jugular) --> currently is on eliquis 2.5mg po bid --> do not recommend a SVC filter --> given prior bleeding risk, hold off on heparin gtt --> vasc surgeon is aware, seek recs # Coagulopathy likely secondary to decreased Vitk dependent cofactors (high INR , PT) --> monitor closely for any evidence of bleeding. Currently is on eliquis --> VIT K on prn basis sq can be administered --> recently has improved inr 1.2-->1.1-->1.2-->1.1-->1.1 # Acute respiratory failure is now s/p trach to vent --> as per surgery recs # Ground glass opacities present on imaging of lung --> with pleural effusions, s/p drainage at this time --> no evidence for malignancy is noted --> as per pulm/id # Pleural effusion --> s/p thoracentesis, s/p paracentesis 12/31 --> no evidence of malignancy -->01/14 cxr: Interstitial edema, small left pleural effusion # Hyperkalemia --> kayxelate on prn basis per renal --> monitor K+ # Renal failure --> per renal recs, appreciated --> getting hd as per schedule 3x week # Altered level of consciousness --> currently as per baseline --> neuro eval prn # PAD off heparin gtt and now on eliquis --> per vasc and cards --> 12/22 s/p right leg angiogram with intervention --> on eliquis, continue # Gt tube cellulitis, on topical abx as per id around site The timing of this note does not necessarily reflect the time of the patient was seen. Greatly appreciate consultation! Subjective Allergies: Coded Allergies: CEPHALEXIN (Unverified Allergy, Unknown, 02/24/14) SULFAMETHOXAZOLE (Unverified Allergy, Unknown, 02/24/14) TRIMETHOPRIM (Unverified Allergy, Unknown, 02/24/14) Subjective 11/30: comfortable, on abx, no complaints, on t-piece 12/01: to have hd done potentially tomorrow, is more alert/awake 12/02: no major bleeding, hgb remains approx 11, no changes 12/03: no events, breathing mildly better, hgb is improved 12/04: on vent/trach, no major changes, sr ekg 12/10: small amount of secretions, on trach/vent, no issues otherwise 12/11: no major issues, no complaints, labs reviewed, no sig changes 12/13: no events to report, no fevers or chills, awaiting placement 12/14: no changes, no major events to report, no fevers or chills 12/15: pending placement, getting gt feeds and hd as per renal 12/16: labs have been reviewed, cbc noted, no changes 12/17: no events, no fevers, no cp, hgb remains stable 12/18: restarted on heparin gtt, seen by pulm, cards 12/20: continues to be on heparin gtt, no bleeding reported, no f/c 12/21: hd for today, no fevers or chils, off hep gtt on eliquis 12/22: to get hd tomorrow, today is s/p right leg angiogram with intervention 12/23: hgb remins stable, no fevers or chills reported 12/24: no events, no bleeding, vitals reviewed, cbc stable 12/25: no events, no bleeding, on vent, hgb 9 12/27: no changes, no f/c, no night swearts, seen with other providers 12/28: right extremity ultrasound (acute non-occlusive DVT in internal jugular, on eliquis 12/29: no events, no night sweats, seen by gi, no bleeding 12/30: cbc has been reviewed, no f/c, no night sweats reported 12/31: no events, eliquis is on hold cbc has been reviewed, bp elevated 01/01: no fevers or chills, cbc reviewed, hgb 9.3, getting HD 01/02: no events noted, getting norco for pain, hgb stable 01/04: not events to report, no bleeding, refusing ivl at this time, cbc reviewed 01/05: no fevers or chills noted, s/p trach/vent, no f/c, no chills noted 01/06: no events, to get 1 unit prbc today, renal seen, on abx 01/07: hd for tomorrow, seen by renal, no events, cbc reviewed 01/08: getting Hd today, seen by renal, no major events, in sr 01/10: no events to report, to get hd tomorrow, hgb stable 01/11: on vent/trach, gtube, tolerating treatment well, hd today 01/12: remains nonverbal, stable, on vent/trach, no fc 01/13: no events noted, cbc has been reviewed 01/14: thora and para fluid still neg for malignancy, no bleeding 01/15: Pt examined at bedside. No acute events. Pt refusing IV access per nursing per nursing team. 01/17: Pt is awake and alert. Pt in stable condition. Hgb trending down: 8.3 will continue to monitor 01/18: Pt complain of abdominal pain and DIAZ. Hgb trend 8.3-->8.9 01/19: no events, cbc has been reviewed, hgb is stable today 01/20: Awake and alert, able to follow commands. Remains on vent. 01/21: Patient awake in bed. Trach to vent. Pt refused am lab draw. 01/22: no events, dc planning 01/23: no events, dc planning, on epogen and eliquis 01/26: no events, no f/c, tolerating trach well, hD prn 01/27: Patient is awake and oriented x4 no signs of distress Objective Objective Current Medications Medications (Trade) Dose Ordered Sig/Aleks Route PRN Reason Start Time Stop Time Status Last Admin Dose Admin Apixaban (Eliquis) 2.5 mg BID GT 01/01/19 21:00 01/31/19 20:59 01/27/19 09:07 Aspirin (ASA) 81 mg DAILY PEG 01/19/19 09:00 02/18/19 08:59 01/27/19 09:07 Atorvastatin Calcium (Lipitor) 10 mg BEDTIME GT 01/18/19 21:00 02/17/19 20:59 01/26/19 20:56 Carvedilol (Coreg) 3.125 mg EVERY 12 HOURS PEG 01/18/19 21:00 02/17/19 20:59 01/26/19 20:56 Clotrimazole (Lotrimin) 1 applic DAILY TOPIC 01/08/19 18:00 02/07/19 17:59 01/27/19 09:21 Collagenase (Santyl) 1 applic DAILY TOPIC 12/29/18 09:00 01/28/19 08:59 01/25/19 10:25 Dextrose (Dextrose 50%) 25 ml Q30M PRN IV Hypoglycemia 12/31/18 23:00 01/30/19 22:59 Dextrose (Dextrose 50%) 50 ml Q30M PRN IV Hypoglycemia 12/31/18 23:00 01/30/19 22:59 Docusate Sodium (Colace) 100 mg TWICE A DAY GT 01/18/19 18:00 02/17/19 17:59 01/24/19 09:23 Epoetin Vini (Epoetin Vini(ESRD on dialysis)) 10,000 unit FRI-FRI-FRI SUBQ 01/06/19 21:00 02/05/19 20:59 01/25/19 20:44 Escitalopram Oxalate (Lexapro) 20 mg DAILY GT 01/05/19 09:00 02/04/19 08:59 01/27/19 09:06 Hydralazine HCl (Apresoline) 25 mg Q4H PRN GT bp over 160 syst 01/06/19 15:00 02/05/19 14:59 Ibuprofen (Advil) 400 mg TIDPRN PRN ORAL For Pain 01/18/19 11:30 02/17/19 11:29 01/27/19 09:07 Insulin Aspart (NovoLOG) EVERY 6 HOURS SUBQ 01/01/19 00:00 01/31/19 00:00 01/27/19 05:22 Lansoprazole (Prevacid) 30 mg DAILY GT 01/16/19 09:00 02/15/19 08:59 01/27/19 09:06 Loperamide HCl (Imodium) 2 mg Q6H PRN GT Diarrhea 01/07/19 11:00 02/06/19 10:59 01/16/19 04:24 Last 24 Hour Vital Signs Date Time Temp Pulse Resp B/P (MAP) Pulse Ox O2 Delivery O2 Flow Rate FiO2 01/27/19 10:12 97 01/27/19 09:06 68 22 40 01/27/19 08:00 40 01/27/19 08:00 Mechanical Ventilator 01/27/19 07:53 73 01/27/19 07:06 62 25 40 01/27/19 05:05 76 26 40 01/27/19 04:00 Mechanical Ventilator 01/27/19 04:00 75 01/27/19 04:00 40 01/27/19 02:56 75 25 40 01/27/19 01:08 74 3 40 01/27/19 00:00 98.1 73 21 150/71 (97) 99 01/27/19 00:00 Mechanical Ventilator 01/27/19 00:00 40 01/27/19 00:00 76 01/26/19 23:08 78 25 40 01/26/19 21:14 80 28 40 01/26/19 20:56 76 140/48 01/26/19 20:00 40 01/26/19 20:00 74 01/26/19 20:00 97.9 74 21 140/60 (86) 99 01/26/19 20:00 Mechanical Ventilator 01/26/19 19:20 75 25 40 01/26/19 17:20 80 24 40 01/26/19 16:00 40 01/26/19 16:00 Mechanical Ventilator 01/26/19 15:33 74 23 40 01/26/19 15:27 72 01/26/19 13:00 80 31 40 01/26/19 12:00 97.5 71 24 109/56 (73) 99 01/26/19 12:00 40 01/26/19 12:00 Mechanical Ventilator 01/26/19 11:48 72 01/26/19 11:00 79 24 40 01/26/19 09:22 72 143/75 01/26/19 09:09 98 01/26/19 09:07 81 32 40 01/26/19 08:00 97.5 69 26 112/76 (88) 99 01/26/19 08:00 40 01/26/19 08:00 Mechanical Ventilator 01/26/19 07:33 70 01/26/19 07:20 78 26 40 01/26/19 05:28 92 26 40 01/26/19 04:00 40 01/26/19 04:00 Mechanical Ventilator 01/26/19 03:45 70 01/26/19 03:30 81 23 40 01/26/19 01:30 79 27 40 01/26/19 00:00 98.1 92 24 132/78 (96) 99 01/26/19 00:00 Mechanical Ventilator 01/25/19 23:08 74 21 40 01/25/19 21:15 78 27 40 01/25/19 20:47 71 137/107 01/25/19 20:00 40 01/25/19 20:00 71 01/25/19 20:00 99.0 105 24 104/57 (73) 98 01/25/19 20:00 Mechanical Ventilator 01/25/19 19:28 72 18 40 01/25/19 17:00 67 18 40 01/25/19 16:00 70 01/25/19 16:00 40 01/25/19 16:00 97.0 26 154/67 (96) 100 01/25/19 16:00 Mechanical Ventilator 01/25/19 15:25 68 16 40 01/25/19 13:28 74 18 40 01/25/19 12:00 40 01/25/19 12:00 71 01/25/19 12:00 97.3 24 116/61 (79) 100 01/25/19 12:00 Mechanical Ventilator Intake and Output 01/26/19 01/27/19 19:00 07:00 Intake Total 495 ml 795 ml Balance 495 ml 795 ml Free Water 300 ml Tube Feeding 495 ml 495 ml # Bowel Movements 1 3 Labs Test 01/25/19 05:52 White Blood Count 6.2 K/UL (4.8-10.8) Red Blood Count 3.32 M/UL (4.70-6.10) Hemoglobin 8.3 G/DL (14.2-18.0) Hematocrit 26.0 % (42.0-52.0) Mean Corpuscular Volume 78 FL (80-99) Mean Corpuscular Hemoglobin 25.0 PG (27.0-31.0) Mean Corpuscular Hemoglobin Concent 31.9 G/DL (32.0-36.0) Red Cell Distribution Width 16.4 % (11.6-14.8) Platelet Count 256 K/UL (150-450) Mean Platelet Volume 5.8 FL (6.5-10.1) Neutrophils (%) (Auto) 70.5 % (45.0-75.0) Lymphocytes (%) (Auto) 20.0 % (20.0-45.0) Monocytes (%) (Auto) 8.6 % (1.0-10.0) Eosinophils (%) (Auto) 0.0 % (0.0-3.0) Basophils (%) (Auto) 0.9 % (0.0-2.0) Sodium Level 131 MMOL/L (136-145) Potassium Level 3.5 MMOL/L (3.5-5.1) Chloride Level 92 MMOL/L (98-107) Carbon Dioxide Level 31 MMOL/L (21-32) Anion Gap 8 mmol/L (5-15) Blood Urea Nitrogen 83 mg/dL (7-18) Creatinine 6.2 MG/DL (0.55-1.30) Estimat Glomerular Filtration Rate 9.0 mL/min (>60) Glucose Level 187 MG/DL (74-106) Calcium Level 9.3 MG/DL (8.5-10.1) Phosphorus Level 3.4 MG/DL (2.5-4.9) Total Bilirubin 0.4 MG/DL (0.2-1.0) Aspartate Amino Transf (AST/SGOT) 12 U/L (15-37) Alanine Aminotransferase (ALT/SGPT) 14 U/L (12-78) Alkaline Phosphatase 128 U/L (46-116) Total Protein 6.8 G/DL (6.4-8.2) Albumin 2.0 G/DL (3.4-5.0) Globulin 4.8 g/dL Albumin/Globulin Ratio 0.4 (1.0-2.7) Height (Feet): 5 Height (Inches): 4.00 Weight (Pounds): 211 Objective PE General Appearance: mild distress, moderate distress Lines, tubes and drains: peripheral HEENT: EOMI, ++ thrush, tonsils swollen ++trach Neck: normal inspection Respiratory/Chest: decreased breath sounds, accessory muscle use. VENT++ Cardiovascular/Chest: tachycardia Abdomen: soft, no organomegaly, no mass, ++ peg Extremities: other Skin Exam: warm/dry, rash Neurologic: alert, responsive Zacarias Khoury MD Jan 27, 2019 11:48
[2019-01-27 12:00] VITALS: BP 160/71
--- NOTE | 2019-01-27 12:41 | Cardiac Electrophysiology PN ---
Assessment/Plan Assessment/Plan 1. Troponin leak due to renal failure. No CP or SOB. Nl EF 2. Hx of CABG. On Coreg, aspirin and Lipitor 3. NSVT in setting of old DC and CABG. EF 55%. Continue Coreg. No Syncope 4. CHF and right pleural effusion. On hemodialysis. S/P Thoracentesis 5. S/P Right sided [employer] DDD pacemaker with Nl Fx. 6. End-stage renal disease, on hemodialysis MWF per Dr. Stevens 7. Multilevel AOD LE's with non-healing Right foot ulcer. Had abdominal angiogram per Dr Salmeron Antibiotic per Dr. Landis. FU by Dr. Huizar S/P peripheral intervention by Dr. Salmeron 12/22/18 8. History of liver transplant on Prograf 9. Respiratory failure, S/P tracheostomy. 10. Pleural effusion. s/p 2300 cc thoracentesis 01/01/19 11. Dysphagia, S/P PEG 12. Difficulty placement DW RN Subjective Subjective Alert in NAD.No CP or SOB. Awaiting HD today. Right heel dressing was just changed and reconnected to wound Vac Objective Last 24 Hour Vital Signs Date Time Temp Pulse Resp B/P (MAP) Pulse Ox O2 Delivery O2 Flow Rate FiO2 01/27/19 11:15 66 24 40 01/27/19 10:12 97 01/27/19 09:06 68 22 40 01/27/19 08:00 40 01/27/19 08:00 Mechanical Ventilator 01/27/19 07:53 73 01/27/19 07:06 62 25 40 01/27/19 05:05 76 26 40 01/27/19 04:00 Mechanical Ventilator 01/27/19 04:00 75 01/27/19 04:00 40 01/27/19 02:56 75 25 40 01/27/19 01:08 74 3 40 01/27/19 00:00 98.1 73 21 150/71 (97) 99 01/27/19 00:00 Mechanical Ventilator 01/27/19 00:00 40 01/27/19 00:00 76 01/26/19 23:08 78 25 40 01/26/19 21:14 80 28 40 01/26/19 20:56 76 140/48 01/26/19 20:00 40 01/26/19 20:00 74 01/26/19 20:00 97.9 74 21 140/60 (86) 99 01/26/19 20:00 Mechanical Ventilator 01/26/19 19:20 75 25 40 01/26/19 17:20 80 24 40 01/26/19 16:00 40 01/26/19 16:00 Mechanical Ventilator 01/26/19 15:33 74 23 40 01/26/19 15:27 72 01/26/19 13:00 80 31 40 Intake and Output 01/26/19 01/27/19 18:59 06:59 Intake Total 540 ml 795 ml Balance 540 ml 795 ml Free Water 300 ml Tube Feeding 540 ml 495 ml # Bowel Movements 1 3 Objective HEAD AND NECK: No JVD. Tracheostomy intact LUNGS: Clear CARDIOVASCULAR: Irregular S1 and S2 with no gallop. Sternotomy is intact Pacemaker in the right subclavian ABDOMEN: Soft. PEG in place EXTREMITIES: Right heel connected to WoundVac Shivam Sharpe MD Jan 27, 2019 12:41
--- NOTE | 2019-01-27 14:19 | General Progress Note ---
Assessment/Plan Assessment/Plan: #Right heel diabetic foot ulcer without osteomyelitis #PAD #Right IJ DVT -seen by Podiatry and ID -s/p Vanco x 2 weeks during HD -continue Eliquis -Vascular Surgery and Hematology following #Acute Resp hypercapnic failure s/p tracheostomy #Angioedema #Large right pleural effusion # R side trapped lung -continue trach care -Remains vent-dependant, breathing trials ongoing -Right thoracentesis 01/01/19 with 2.3 lt removed. Post procedure CXR with R trapped lung. -Will discuss importance of coming off vent for disposition purposes with patient #End-stage renal disease, on dialysis M-W-F #RUE edema #Anasarca, ascites, scrotal edema, pleural effusion due to hypoalbuminemia -HD with UF per Nephrology -s/p PRBC transfusion during HD #Coronary artery disease -continue ASA, Coreg, atorvastatin -cardiology following #Type 2 DM -ISS #Acute metabolic encephalopathy -continue supportive care -Neurology following #history of chronic HCV infection #history of liver transplant -continue Prograf -GI following #Abdominal distension and ascites s/p therapeutic paracentesis -no nausea, vomiting or tenderness -continue supportive care -GI following -s/p paracentesis 12/31/18 4.1 lt #Dysphagia S/p PEG with PEG site cellulitis -s/p antibiotics per ID and GI -continue local wound care -tolerating tube feeds #FULL CODE #Dispo planning Subjective Date patient seen: Jan 27, 2019 Time patient seen: 13:44 ROS Limited/Unobtainable: Yes Cardiovascular: Denies: chest pain Respiratory: Denies: cough Gastrointestinal/Abdominal: Denies: abdominal pain Allergies: Coded Allergies: CEPHALEXIN (Unverified Allergy, Unknown, 02/24/14) SULFAMETHOXAZOLE (Unverified Allergy, Unknown, 02/24/14) TRIMETHOPRIM (Unverified Allergy, Unknown, 02/24/14) Subjective Medicine follow up for acute resp failure, PAD, right heel infected DFU, ESRD, anasarca secondary to hypoalbuminemia, right IJ DVT. S/p 4 liter paracentesis and 2 liter thoracentesis. Patient refusing to be off vent Objective Last 24 Hour Vital Signs Date Time Temp Pulse Resp B/P (MAP) Pulse Ox O2 Delivery O2 Flow Rate FiO2 01/27/19 13:26 69 18 40 01/27/19 12:00 Mechanical Ventilator 01/27/19 12:00 40 01/27/19 11:47 73 01/27/19 11:15 66 24 40 01/27/19 10:12 97 01/27/19 09:06 68 22 40 01/27/19 08:00 40 01/27/19 08:00 Mechanical Ventilator 01/27/19 07:53 73 01/27/19 07:06 62 25 40 01/27/19 05:05 76 26 40 01/27/19 04:00 Mechanical Ventilator 01/27/19 04:00 75 01/27/19 04:00 40 01/27/19 02:56 75 25 40 01/27/19 01:08 74 3 40 01/27/19 00:00 98.1 73 21 150/71 (97) 99 01/27/19 00:00 Mechanical Ventilator 01/27/19 00:00 40 01/27/19 00:00 76 01/26/19 23:08 78 25 40 01/26/19 21:14 80 28 40 01/26/19 20:56 76 140/48 01/26/19 20:00 40 01/26/19 20:00 74 01/26/19 20:00 97.9 74 21 140/60 (86) 99 01/26/19 20:00 Mechanical Ventilator 01/26/19 19:20 75 25 40 01/26/19 17:20 80 24 40 01/26/19 16:00 40 01/26/19 16:00 Mechanical Ventilator 01/26/19 15:33 74 23 40 01/26/19 15:27 72 Intake and Output 01/26/19 01/27/19 18:59 06:59 Intake Total 540 ml 795 ml Balance 540 ml 795 ml Free Water 300 ml Tube Feeding 540 ml 495 ml # Bowel Movements 1 3 Height (Feet): 5 Height (Inches): 4.00 Weight (Pounds): 211 General Appearance: alert, lethargic Cardiovascular: normal rate, regular rhythm Respiratory/Chest: lungs clear, normal breath sounds Dennis Branham MD Jan 27, 2019 14:19
--- NOTE | 2019-01-27 15:32 | Infectious Diseases Prog Note ---
Assessment/Plan Problems: (1) Foot ulcer Assessment & Plan: with MRSA grew out of it in the past, S/P vancomycin treatment with HD for two weeks, had vascular eval with revascularization to the right leg , S/P ulcer resection by safety patrol officer . deep ulcer culture grew MRSA and E.coli with diphtheroids , possible colonization , with no evidence of active infection as per discussion with podiatry , no need to be started on antibiotics for now , will continue to monitor clinically and make recommendations as necessary . bone scan ruled out osteomyelitis of the heel before, couldn't do an MRI since on the vent . continue local wound care as per safety patrol officer . (2) Diarrhea Assessment & Plan: improved, with no infectious etiology so far , and negative stool for C diff toxin , and no pathogens on stool culture , use laxatives as needed , monitor clinically , encourage hydration (3) Thrush, oral Assessment & Plan: resolved with local nystatin as needed , S/P micafungin for three weeks empirically (4) HCV antibody positive Assessment & Plan: no evidence of active infection, with undetectable viral load , suspect due to previous infection , cleared, S/P liver transplant . (5) DM (diabetes mellitus) Assessment & Plan: recommend tight glycemic control to keep blood glucose between 100-140 (6) CHF (congestive heart failure) Assessment & Plan: on HD , renal is following, monitor daily weight , S/P multiple thoracentesis (7) Severe tongue swelling Assessment & Plan: improving , s/p tracheostomy to protect his airway since respiratory status worsened . now improving, pulmonary is following (8) Pleural effusion Assessment & Plan: recurrent on the right, with lung collapse , S/P thoracentesis X 3 now with removal of 2.3 liters of clear fluids on 12/31/18 . await fluids culture and gram stain, with PH and Glucose level . PREVIOUS culture were negative with negative cytology. pulmonary is following (9) Ascites Assessment & Plan: S/P paracentesis with removal of 4.1 liters of fluids, culture so far is negative Assessment/Plan will continue to monitor patient on daily basis and make recommendations as necessary since he is high risk for recurrent infection Subjective Constitutional: Reports: no symptoms HEENT: Reports: no symptoms Respiratory: Reports: no symptoms Breasts: Reports: no symptoms Cardiovascular: Reports: no symptoms Gastrointestinal/Abdominal: Reports: no symptoms Genitourinary: Reports: no symptoms Neurologic: Reports: no symptoms Psychiatric: Reports: no symptoms Skin: Reports: no symptoms Endocrine: Reports: no symptoms Hematologic: Reports: no symptoms Allergies: Coded Allergies: CEPHALEXIN (Unverified Allergy, Unknown, 02/24/14) SULFAMETHOXAZOLE (Unverified Allergy, Unknown, 02/24/14) TRIMETHOPRIM (Unverified Allergy, Unknown, 02/24/14) Subjective he was comfortable, lying in bed, awake and responsive, no fever or chills, no significant secretions from the trach , no SOB . has left heel with wound VAC in place, but no draining coming out . no diarrhea . Objective Vital Signs Last 24 Hour Vital Signs Date Time Temp Pulse Resp B/P (MAP) Pulse Ox O2 Delivery O2 Flow Rate FiO2 01/27/19 15:28 74 16 40 01/27/19 13:26 69 18 40 01/27/19 12:00 Mechanical Ventilator 01/27/19 12:00 40 01/27/19 11:47 73 01/27/19 11:15 66 24 40 01/27/19 10:12 97 01/27/19 09:06 68 22 40 01/27/19 08:00 40 01/27/19 08:00 Mechanical Ventilator 01/27/19 07:53 73 01/27/19 07:06 62 25 40 01/27/19 05:05 76 26 40 01/27/19 04:00 Mechanical Ventilator 01/27/19 04:00 75 01/27/19 04:00 40 01/27/19 02:56 75 25 40 01/27/19 01:08 74 3 40 01/27/19 00:00 98.1 73 21 150/71 (97) 99 01/27/19 00:00 Mechanical Ventilator 01/27/19 00:00 40 01/27/19 00:00 76 01/26/19 23:08 78 25 40 01/26/19 21:14 80 28 40 01/26/19 20:56 76 140/48 01/26/19 20:00 40 01/26/19 20:00 74 01/26/19 20:00 97.9 74 21 140/60 (86) 99 01/26/19 20:00 Mechanical Ventilator 01/26/19 19:20 75 25 40 01/26/19 17:20 80 24 40 01/26/19 16:00 40 01/26/19 16:00 Mechanical Ventilator 01/26/19 15:33 74 23 40 Height (Feet): 5 Height (Inches): 4.00 Weight (Pounds): 211 General Appearance: WD/WN, no acute distress HEENT: normocephalic, atraumatic, anicteric, mucous membranes moist, PERRL Respiratory/Chest: chest wall non-tender, no respiratory distress, no accessory muscle use, decreased breath sounds, crackles/rales Cardiovascular: normal peripheral pulses, normal rate, regular rhythm, no gallop/murmur, no JVD Abdomen: normal bowel sounds, soft, non tender, no organomegaly, non distended , no mass, no scars Genitourinary: normal external genitalia Extremities: no cyanosis, no clubbing Skin: no rash, no lesions, ulcers 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: certified wellness program manager 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 normal, alert, responsive Lymphatic: no neck adenopathy, no groin adenopathy Musculoskeletal: normal muscle bulk, no effusion Current Medications Medications (Trade) Dose Ordered Sig/Aleks Route PRN Reason Start Time Stop Time Status Last Admin Dose Admin Apixaban (Eliquis) 2.5 mg BID GT 01/01/19 21:00 01/31/19 20:59 01/27/19 09:07 Aspirin (ASA) 81 mg DAILY PEG 01/19/19 09:00 02/18/19 08:59 01/27/19 09:07 Atorvastatin Calcium (Lipitor) 10 mg BEDTIME GT 01/18/19 21:00 02/17/19 20:59 01/26/19 20:56 Carvedilol (Coreg) 3.125 mg EVERY 12 HOURS PEG 01/18/19 21:00 02/17/19 20:59 01/26/19 20:56 Clotrimazole (Lotrimin) 1 applic DAILY TOPIC 01/08/19 18:00 02/07/19 17:59 01/27/19 09:21 Collagenase (Santyl) 1 applic DAILY TOPIC 12/29/18 09:00 01/28/19 08:59 01/25/19 10:25 Dextrose (Dextrose 50%) 25 ml Q30M PRN IV Hypoglycemia 12/31/18 23:00 01/30/19 22:59 Dextrose (Dextrose 50%) 50 ml Q30M PRN IV Hypoglycemia 12/31/18 23:00 01/30/19 22:59 Docusate Sodium (Colace) 100 mg TWICE A DAY GT 01/18/19 18:00 02/17/19 17:59 01/24/19 09:23 Epoetin Vini (Epoetin Vini(ESRD on dialysis)) 10,000 unit FRI- SUBQ 01/06/19 21:00 02/05/19 20:59 01/25/19 20:44 Escitalopram Oxalate (Lexapro) 20 mg DAILY GT 01/05/19 09:00 02/04/19 08:59 01/27/19 09:06 Hydralazine HCl (Apresoline) 25 mg Q4H PRN GT bp over 160 syst 01/06/19 15:00 02/05/19 14:59 Ibuprofen (Advil) 400 mg TIDPRN PRN ORAL For Pain 01/18/19 11:30 02/17/19 11:29 01/27/19 09:07 Insulin Aspart (NovoLOG) EVERY 6 HOURS SUBQ 01/01/19 00:00 01/31/19 00:00 01/27/19 12:08 Lansoprazole (Prevacid) 30 mg DAILY GT 01/16/19 09:00 02/15/19 08:59 01/27/19 09:06 Loperamide HCl (Imodium) 2 mg Q6H PRN GT Diarrhea 01/07/19 11:00 02/06/19 10:59 01/16/19 04:24 Francois Landis M.D. Jan 27, 2019 15:31
[2019-01-27 16:00] VITALS: BP 159/64
--- NOTE | 2019-01-27 18:04 | Neurology Progress Note ---
Interim History Interim History Interim History Mr. Restrepo feels better today. His mood is minimally better. His spirits are fair. He was able to sleep relatively well last night. He is being weaned off the ventilator and is comfortable. He is alert and bright. The right heel pain is about the same - and it is healing well. The right upper extremity is still swollen but less painful. He is still artificially ventilated. He feels that his strength is stable. The mind is clear. He denies any new neurological symptoms. He is still worried about his hearing. He has had no PT for quite a few days. Review of Systems Neuro Review of Systems Benign. Objective Physical Exam Last Vital Signs Date Time Temp Pulse Resp B/P (MAP) Pulse Ox O2 Delivery O2 Flow Rate FiO2 01/27/19 17:15 70 18 40 01/27/19 16:00 Mechanical Ventilator 01/27/19 12:00 98.4 160/71 (100) 99 Neurologic Exam Objective PHYSICAL EXAMINATION: GENERAL: He is a well-developed, well-nourished, pleasant gentleman, lying in bed, connected to a ventilator via a tracheostomy. HEAD: Normocephalic and atraumatic. EENT: Examination benign. NECK: No neck rigidity was observed. He did have a tracheostomy. NEUROLOGICAL EXAMINATION: MENTAL STATUS EXAMINATION: He was awake and alert. He was oriented to person, place and time. He was able to recall 3/3 words immediately and was able to remember them in 1 and 3 minutes. He was able to remember presidents Trump through Mak Keny. His mathematical skills were fair. His visuospatial function was preserved. SPEECH: Could not be tested, but he was able to mouth words relatively well. LANGUAGE: He was able to comprehend and express himself relatively well. CRANIAL NERVES EXAMINATION: II: The visual mckeon were intact to confrontation testing. III, IV & : The external ocular movements were full and the pupils 3 mm in diameter, equal, round, regular, and reactive sluggishly to light. V: He had normal facial sensations, and the temporales, masseters, and pterygoids functioned normally. VII: He had normal facial expressions and no facial asymmetry. VIII: Hearing was decreased bilaterally with worse hearing on the left side compared to the right. IX: The palate moved symmetrically on phonation. X: Could not be tested. XI: The sternocleidomastoids and trapezii functioned normally. XII: The tongue was in the midline without any fasciculations or atrophy. MOTOR SYSTEM: The tone was normal in all four extremities. Examination of muscle mass revealed generalized muscle wasting. Examination of power revealed G 5/5 power except for G 4+/5 power in the iliopsoas muscles bilaterally. SENSORY EXAMINATION: He had intact sensations to light touch. Other sensory modalities could not be tested adequately. REFLEXES: 1+ and bilaterally symmetrical at the biceps, triceps, brachioradialis , and knees, 0 at both ankles. The plantar responses were flexor bilaterally. COORDINATION: He performed well on [id number] testing. STANCE & GAIT: Were deferred. Impression/Recommendations Diagnostic Impression 1. Mr. Gregg Restrepo is a 69-year-old, right-handed, gentleman with past history of multiple medical problems including hypertension, diabetes mellitus, end-stage renal disease for which he is hemodialysis dependent, prior episodes of sepsis, and prior episodes of encephalopathy, who was admitted to [facility] on October 31, 2018. Following that, he has had a stormy hospital course including pneumonia and sepsis, right foot infection, respiratory failure for which he has needed tracheostomy and in addition he has exhibited an alteration in his mental state with some waxing and waning of his mental state. 2. He feels better. His mood is minimally better. His spirits are fair. He was able to sleep relatively well last night. He is being weaned off the ventilator and is comfortable. He is alert and bright. The right heel pain is about the same - and it is healing well. The right upper extremity is still swollen but less painful. He is still artificially ventilated. He feels that his strength is stable. The mind is clear. He denies any new neurological symptoms. He is still worried about his hearing. He has had no PT for quite a few days. 3. On neurological examination, at this time, he is fully oriented, his recent memory is normal. He has minimally impaired higher cognitive function. He is able to comprehend and express himself well. He does have mild G 4+/5 weakness in the iliopsoas muscles bilaterally. He had globally diminished deep tendon reflexes with loss of ankle jerks, but no definite focal or lateralizing neurological findings. 4. His latest laboratory data on my initial evaluation revealed that he was anemic with a hemoglobin of 10.8 G. His last blood gas performed on 11/14/2018 revealed that he had a pCO2 elevated at 56.4 with a normal pO2 of 88.3 and normal pH of 7.37. His latest chemistry panel revealed that he was mildly hyponatremic with a sodium of 130, and had a chloride of 90. The BUN was elevated at 75, creatinine elevated at 7.4, glucose elevated at 156, Hemoglobin A1c elevated at 6.9%, Alkaline phosphatase elevated at 131, and ProBNP greater than 35,000. His last B12 level on 11/07/2018 was 723. His last folate on was 18.6. His last TSH on 12/06/2018 was 4.82, which is minimally elevated. 5. The CT scan of the brain performed on 11/10/2018 was benign for acute intracranial pathology. 6. The EEG done on 12/08/18 revealed left temporal dysfunction. 7. The patient's history and neurological examination are most consistent with mild multifactorial encephalopathy, which apparently waxes and wanes, but no definite focal neurological dysfunction. His encephalopathy is stable. 8. He tells me that he had a brain bleed many years ago. I did review his imaging done at [facility] a few years ago and he had closed head injuries with subarachnoid and subdural blood in the past. 9. His mood is down again. 10. There has never been a doubt regarding his ability to make decisions regarding his medical care. 11. He is worried about his hearing. 12. As per his speech pathologists, they will continue to follow him for swallowing therapy. Recommendations 1. Continue present management. 2. Continue to correct the patient's toxic metabolic imbalances. 3. Mobilize with PT/OT. 4. Consider ENT evaluation for hearing loss. 5. Watch mood closely. 6. Observe. Pantera Cool M.D., M.S.P.H. Pantera Cool MD Jan 27, 2019 18:04
[2019-01-27 20:00] VITALS: BP 130/76
[2019-01-27] MEDS: Epoetin Alfa-EPBX(ESRD on dialysis)10,000 unit/ml vial SUBQ SCH (21:00)
[2019-01-28] VITALS: BP 127/63
[2019-01-28] MEDS: NovoLOG Insulin Flexpen SUBQ SCH ×5 (00:36→23:14)
--- NOTE | 2019-01-28 01:01 | Progress Note ---
DATE: 01/27/2019 SUBJECTIVE: The patient is gradually improving. He has depressed mood, anhedonia, worthlessness, and hopelessness. Again, the patient asked to increase his antidepressant. The patient is explained and educated about increasing the dose risk. The patient is sleeping better. MENTAL STATUS EXAMINATION: The patient is alert and oriented times to self, place, and situation. Mood is dysphoric. Affect is constricted. Congruent with mood. Thought process is concrete. Thought content, no suicidal or homicidal ideation. ASSESSMENT: 1. Major depressive disorder. 2. Anxiety disorder. PLAN: We will continue current medications. Provide the patient with reality orientation and supportive therapy. Jeffrey Lala M.D. DR: CARMELLA JOB#: [id number] CC: MARIA VICTORIA
[2019-01-28 08:00] VITALS: BP 155/83
--- NOTE | 2019-01-28 08:02 | General Progress Note ---
Assessment/Plan Problem List: (1) Transplant ICD Codes: Z94.9 - Transplanted organ and tissue status, unspecified SNOMED: 449580273 (2) HTN (hypertension) ICD Codes: I10 - Essential (primary) hypertension SNOMED: 72736554 (3) Pacemaker ICD Codes: Z95.0 - Presence of cardiac pacemaker SNOMED: 470127235 (4) CHF (congestive heart failure) ICD Codes: I50.9 - Heart failure, unspecified SNOMED: 07760249 (5) DM (diabetes mellitus) ICD Codes: E11.9 - Type 2 diabetes mellitus without complications SNOMED: 61672484 (6) Foot ulcer ICD Codes: L97.509 - Non-pressure chronic ulcer of other part of unspecified foot with unspecified severity SNOMED: 99239421 Qualifiers: Qualified Codes: L97.511 - Non-pressure chronic ulcer of other part of right foot limited to breakdown of skin (7) ESRD (end stage renal disease) on dialysis ICD Codes: N18.6 - End stage renal disease; Z99.2 - Dependence on renal dialysis SNOMED: 584091195 Assessment/Plan: History of liver transplant, currently on Prograf History of cholecystectomy status post tracheostomy and PEG Infected G-tube site, fu ID recs C. difficile negative x 2 would care cx >> GRAM NEGATIVE BACILLUS CT AP reviewed, Moderate to large right pleural effusion. Moderate Ascites. s/p Paracentesis yielding 4.1 yield, r/o SBP >> negative for malignant cells Status post right thoracentesis yielding 2.1 L >> negative for malignant cells Continue G-tube feedings GT site care BID/prn topical abx around GT site per ID HD per nephro cont tacrolimus prn transfusions ppi zofran prn Imodium prn, Lomotil for persistent diarrhea follow labs supportive care outpatient Hep C tx, pending RNA PCR monitor LFTS Lomotil prn Subjective ROS Limited/Unobtainable: No Allergies: Coded Allergies: CEPHALEXIN (Unverified Allergy, Unknown, 02/24/14) SULFAMETHOXAZOLE (Unverified Allergy, Unknown, 02/24/14) TRIMETHOPRIM (Unverified Allergy, Unknown, 02/24/14) Subjective he pulled his NGT again Objective Last 24 Hour Vital Signs Date Time Temp Pulse Resp B/P (MAP) Pulse Ox O2 Delivery O2 Flow Rate FiO2 01/28/19 07:03 74 19 40 01/28/19 05:01 70 24 40 01/28/19 04:00 40 01/28/19 04:00 Mechanical Ventilator 01/28/19 03:31 67 01/28/19 02:47 73 25 40 01/28/19 00:58 71 26 40 01/28/19 00:00 40 01/28/19 00:00 97.8 70 23 127/63 (84) 100 01/28/19 00:00 Mechanical Ventilator 01/28/19 00:00 71 01/27/19 23:05 70 23 40 01/27/19 21:29 98.6 01/27/19 21:00 70 130/76 01/27/19 20:55 73 23 40 01/27/19 20:00 71 01/27/19 20:00 98.0 70 26 130/76 (94) 100 01/27/19 20:00 40 01/27/19 20:00 Mechanical Ventilator 01/27/19 18:55 72 23 40 01/27/19 17:15 70 18 40 01/27/19 16:00 40 01/27/19 16:00 Mechanical Ventilator 01/27/19 16:00 98.6 70 23 159/64 (95) 100 01/27/19 15:28 74 16 40 01/27/19 15:23 70 01/27/19 13:26 69 18 40 01/27/19 12:00 Mechanical Ventilator 01/27/19 12:00 98.4 77 26 160/71 (100) 99 01/27/19 12:00 40 01/27/19 11:47 73 01/27/19 11:15 66 24 40 01/27/19 10:12 97 01/27/19 09:06 68 22 40 Intake and Output 01/27/19 01/28/19 19:00 07:00 Intake Total 540 ml 640 ml Balance 540 ml 640 ml Free Water 100 ml Tube Feeding 540 ml 540 ml # Bowel Movements 3 Height (Feet): 5 Height (Inches): 4.00 Weight (Pounds): 213 General Appearance: no apparent distress EENT: normal ENT inspection Neck: supple Cardiovascular: normal rate Respiratory/Chest: decreased breath sounds Abdomen: normal bowel sounds, non tender, soft Extremities: non-tender Jorge Escalera MD Jan 28, 2019 08:02
[2019-01-28] MEDS: Docusate 100mg/10ml Liq GT SCH ×2 (09:00→17:46)
[2019-01-28] MEDS: Eliquis 2.5mg tablet GT SCH ×2 (09:29→17:44)
[2019-01-28] MEDS: Aspirin Baby 81mg PEG SCH (09:49)
--- NOTE | 2019-01-28 10:17 | General Progress Note ---
Assessment/Plan Assessment/Plan: #Right heel diabetic foot ulcer without osteomyelitis #PAD #Right IJ DVT -seen by Podiatry and ID -s/p Vanco x 2 weeks during HD -continue Eliquis -Vascular Surgery and Hematology following #Acute Resp hypercapnic failure s/p tracheostomy #Angioedema #Large right pleural effusion # R side trapped lung -continue trach care -Remains vent-dependant, breathing trials ongoing -Right thoracentesis 01/01/19 with 2.3 lt removed. Post procedure CXR with R trapped lung. -Vent weaning #End-stage renal disease, on dialysis M-W- #RUE edema #Anasarca, ascites, scrotal edema, pleural effusion due to hypoalbuminemia -HD with UF per Nephrology -s/p PRBC transfusion during HD #Coronary artery disease -continue ASA, Coreg, atorvastatin -cardiology following #Type 2 DM -ISS #Acute metabolic encephalopathy -continue supportive care -Neurology following #history of chronic HCV infection #history of liver transplant -continue Prograf -GI following #Abdominal distension and ascites s/p therapeutic paracentesis -no nausea, vomiting or tenderness -continue supportive care -GI following -s/p paracentesis 12/31/18 4.1 lt #Dysphagia S/p PEG with PEG site cellulitis -s/p antibiotics per ID and GI -continue local wound care -tolerating tube feeds #FULL CODE #Dispo planning Subjective Date patient seen: Jan 28, 2019 Time patient seen: 07:22 ROS Limited/Unobtainable: Yes Cardiovascular: Denies: chest pain Respiratory: Denies: cough Gastrointestinal/Abdominal: Denies: abdominal pain Allergies: Coded Allergies: CEPHALEXIN (Unverified Allergy, Unknown, 02/24/14) SULFAMETHOXAZOLE (Unverified Allergy, Unknown, 02/24/14) TRIMETHOPRIM (Unverified Allergy, Unknown, 02/24/14) Subjective Medicine follow up for acute resp failure, PAD, right heel infected DFU, ESRD, anasarca secondary to hypoalbuminemia, right IJ DVT. S/p 4 liter paracentesis and 2 liter thoracentesis. No new issues overnight Objective Last 24 Hour Vital Signs Date Time Temp Pulse Resp B/P (MAP) Pulse Ox O2 Delivery O2 Flow Rate FiO2 01/28/19 09:29 68 146/74 01/28/19 08:46 77 23 40 01/28/19 08:00 98.6 68 24 155/83 (107) 99 01/28/19 08:00 Mechanical Ventilator 01/28/19 08:00 40 01/28/19 07:03 74 19 40 01/28/19 05:01 70 24 40 01/28/19 04:00 40 01/28/19 04:00 Mechanical Ventilator 01/28/19 03:31 67 01/28/19 02:47 73 25 40 01/28/19 00:58 71 26 40 01/28/19 00:00 40 01/28/19 00:00 97.8 70 23 127/63 (84) 100 01/28/19 00:00 Mechanical Ventilator 01/28/19 00:00 71 01/27/19 23:05 70 23 40 01/27/19 21:29 98.6 01/27/19 21:00 70 130/76 01/27/19 20:55 73 23 40 01/27/19 20:00 71 01/27/19 20:00 98.0 70 26 130/76 (94) 100 01/27/19 20:00 40 01/27/19 20:00 Mechanical Ventilator 01/27/19 18:55 72 23 40 01/27/19 17:15 70 18 40 01/27/19 16:00 40 01/27/19 16:00 Mechanical Ventilator 01/27/19 16:00 98.6 70 23 159/64 (95) 100 01/27/19 15:28 74 16 40 01/27/19 15:23 70 01/27/19 13:26 69 18 40 01/27/19 12:00 Mechanical Ventilator 01/27/19 12:00 98.4 77 26 160/71 (100) 99 01/27/19 12:00 40 01/27/19 11:47 73 01/27/19 11:15 66 24 40 Intake and Output 01/27/19 01/28/19 19:00 07:00 Intake Total 540 ml 640 ml Balance 540 ml 640 ml Free Water 100 ml Tube Feeding 540 ml 540 ml # Bowel Movements 3 Height (Feet): 5 Height (Inches): 4.00 Weight (Pounds): 213 General Appearance: no apparent distress, alert Cardiovascular: normal rate, regular rhythm Respiratory/Chest: lungs clear, normal breath sounds, no respiratory distress Abdomen: non tender, soft Molazadeh-Yazdi,Dennis MD Jan 28, 2019 10:17
--- NOTE | 2019-01-28 11:07 | Cardiac Electrophysiology PN ---
Assessment/Plan Assessment/Plan 1. Troponin leak due to renal failure. No CP or SOB. Nl EF 2. Hx of CABG. On Coreg, aspirin and Lipitor 3. NSVT in setting of old VA and CABG. EF 55%. Continue Coreg. No Syncope 4. CHF and right pleural effusion. On hemodialysis. S/P Thoracentesis 5. S/P Right sided [employer] DDD pacemaker with Nl Fx. 6. End-stage renal disease, on hemodialysis MWF per Dr. Stevens 7. Multilevel AOD LE's with non-healing Right foot ulcer. Had abdominal angiogram per Dr Salmeron Antibiotic per Dr. Landis. FU by Dr. Huizar S/P peripheral intervention by Dr. Salmeron 12/22/18 8. History of liver transplant on Prograf 9. Respiratory failure, S/P tracheostomy. 10. Pleural effusion. s/p 2300 cc thoracentesis 01/01/19 11. 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 Had HD yesterday. Objective Last 24 Hour Vital Signs Date Time Temp Pulse Resp B/P (MAP) Pulse Ox O2 Delivery O2 Flow Rate FiO2 01/28/19 09:29 68 146/74 01/28/19 08:46 77 23 40 01/28/19 08:00 98.6 68 24 155/83 (107) 99 01/28/19 08:00 Mechanical Ventilator 01/28/19 08:00 40 01/28/19 07:41 68 01/28/19 07:03 74 19 40 01/28/19 05:01 70 24 40 01/28/19 04:00 40 01/28/19 04:00 Mechanical Ventilator 01/28/19 03:31 67 01/28/19 02:47 73 25 40 01/28/19 00:58 71 26 40 01/28/19 00:00 40 01/28/19 00:00 97.8 70 23 127/63 (84) 100 01/28/19 00:00 Mechanical Ventilator 01/28/19 00:00 71 01/27/19 23:05 70 23 40 01/27/19 21:29 98.6 01/27/19 21:00 70 130/76 01/27/19 20:55 73 23 40 01/27/19 20:00 71 01/27/19 20:00 98.0 70 26 130/76 (94) 100 01/27/19 20:00 40 01/27/19 20:00 Mechanical Ventilator 01/27/19 18:55 72 23 40 01/27/19 17:15 70 18 40 01/27/19 16:00 40 01/27/19 16:00 Mechanical Ventilator 01/27/19 16:00 98.6 70 23 159/64 (95) 100 01/27/19 15:28 74 16 40 01/27/19 15:23 70 01/27/19 13:26 69 18 40 01/27/19 12:00 Mechanical Ventilator 01/27/19 12:00 98.4 77 26 160/71 (100) 99 01/27/19 12:00 40 01/27/19 11:47 73 01/27/19 11:15 66 24 40 Intake and Output 01/27/19 01/28/19 19:00 07:00 Intake Total 540 ml 640 ml Balance 540 ml 640 ml Free Water 100 ml Tube Feeding 540 ml 540 ml # Bowel Movements 3 Objective HEAD AND NECK: No JVD. Tracheostomy intact LUNGS: Clear CARDIOVASCULAR: Irregular S1 and S2 with no gallop. Sternotomy is intact Pacemaker in the right subclavian ABDOMEN: Soft. PEG in place EXTREMITIES: Right heel connected to WoundVac Shivam Sharpe MD Jan 28, 2019 11:07
--- NOTE | 2019-01-28 11:39 | Hematology/Onc Progress Note ---
Assessment/Plan Assessment/Plan Assessment and Recs: # Anemia of chronic disease due to underlying chronic medical issues, range has been 8-11, ferritin is 633, tibc is low --> Pt refused 01/21/19 am lab scott. --> No evidence of hemolysis is noted, peripheral smear has been reviewed. --> Epogen with HD 3x/wk --> Medications have been reviewed --> evaluate with Gi team prn --> transfuse if hgb is < 7 (will trend CBC daily) --> hgb trend 11.2-->10.9-->10.8-->10.7-->10.2-->9.7-->9.7-->8.5-->9-->9.2-->8.4 -->7.7-->8.8-->9.1-->8.6-->8.3-->8.9 --> s/p transfusion on 01/06 # Failure to thrive is likely related to poor overall status, poor functional status --> GT++ as per gi --> with multiple decub ulcerations that are noted, seen by id/surgery --> s/p trach as well --> cea is wnl # Acute non-occlusive dvt, right extremity ultrasound (acute non-occlusive DVT in internal jugular) --> currently is on eliquis 2.5mg po bid --> do not recommend a SVC filter --> given prior bleeding risk, hold off on heparin gtt --> vasc surgeon is aware, seek recs # Coagulopathy likely secondary to decreased Vitk dependent cofactors (high INR , PT) --> monitor closely for any evidence of bleeding. Currently is on eliquis --> VIT K on prn basis sq can be administered --> recently has improved inr 1.2-->1.1-->1.2-->1.1-->1.1 # Acute respiratory failure is now s/p trach to vent --> as per surgery recs # Ground glass opacities present on imaging of lung --> with pleural effusions, s/p drainage at this time --> no evidence for malignancy is noted --> as per pulm/id # Pleural effusion --> s/p thoracentesis, s/p paracentesis 12/31 --> no evidence of malignancy -->01/14 cxr: Interstitial edema, small left pleural effusion # Hyperkalemia --> kayxelate on prn basis per renal --> monitor K+ # Renal failure --> per renal recs, appreciated --> getting hd as per schedule 3x week # Altered level of consciousness --> currently as per baseline --> neuro eval prn # PAD off heparin gtt and now on eliquis --> per vasc and cards --> 12/22 s/p right leg angiogram with intervention --> on eliquis, continue # Gt tube cellulitis, on topical abx as per id around site The timing of this note does not necessarily reflect the time of the patient was seen. Greatly appreciate consultation! Subjective Allergies: Coded Allergies: CEPHALEXIN (Unverified Allergy, Unknown, 02/24/14) SULFAMETHOXAZOLE (Unverified Allergy, Unknown, 02/24/14) TRIMETHOPRIM (Unverified Allergy, Unknown, 02/24/14) Subjective 11/30: comfortable, on abx, no complaints, on t-piece 12/01: to have hd done potentially tomorrow, is more alert/awake 12/02: no major bleeding, hgb remains approx 11, no changes 12/03: no events, breathing mildly better, hgb is improved 12/04: on vent/trach, no major changes, sr ekg 12/10: small amount of secretions, on trach/vent, no issues otherwise 12/11: no major issues, no complaints, labs reviewed, no sig changes 12/13: no events to report, no fevers or chills, awaiting placement 12/14: no changes, no major events to report, no fevers or chills 12/15: pending placement, getting gt feeds and hd as per renal 12/16: labs have been reviewed, cbc noted, no changes 12/17: no events, no fevers, no cp, hgb remains stable 12/18: restarted on heparin gtt, seen by pulm, cards 12/20: continues to be on heparin gtt, no bleeding reported, no f/c 12/21: hd for today, no fevers or chils, off hep gtt on eliquis 12/22: to get hd tomorrow, today is s/p right leg angiogram with intervention 12/23: hgb remins stable, no fevers or chills reported 12/24: no events, no bleeding, vitals reviewed, cbc stable 12/25: no events, no bleeding, on vent, hgb 9 12/27: no changes, no f/c, no night swearts, seen with other providers 12/28: right extremity ultrasound (acute non-occlusive DVT in internal jugular, on eliquis 12/29: no events, no night sweats, seen by gi, no bleeding 12/30: cbc has been reviewed, no f/c, no night sweats reported 12/31: no events, eliquis is on hold cbc has been reviewed, bp elevated 01/01: no fevers or chills, cbc reviewed, hgb 9.3, getting HD 01/02: no events noted, getting norco for pain, hgb stable 01/04: not events to report, no bleeding, refusing ivl at this time, cbc reviewed 01/05: no fevers or chills noted, s/p trach/vent, no f/c, no chills noted 01/06: no events, to get 1 unit prbc today, renal seen, on abx 01/07: hd for tomorrow, seen by renal, no events, cbc reviewed 01/08: getting Hd today, seen by renal, no major events, in sr 01/10: no events to report, to get hd tomorrow, hgb stable 01/11: on vent/trach, gtube, tolerating treatment well, hd today 01/12: remains nonverbal, stable, on vent/trach, no fc 01/13: no events noted, cbc has been reviewed 01/14: thora and para fluid still neg for malignancy, no bleeding 01/15: Pt examined at bedside. No acute events. Pt refusing IV access per nursing per nursing team. 01/17: Pt is awake and alert. Pt in stable condition. Hgb trending down: 8.3 will continue to monitor 01/18: Pt complain of abdominal pain and DIAZ. Hgb trend 8.3-->8.9 01/19: no events, cbc has been reviewed, hgb is stable today 01/20: Awake and alert, able to follow commands. Remains on vent. 01/21: Patient awake in bed. Trach to vent. Pt refused am lab draw. 01/22: no events, dc planning 01/23: no events, dc planning, on epogen and eliquis 01/26: no events, no f/c, tolerating trach well, hD prn 01/27: Patient is awake and oriented x4 no signs of distress 01/28: No acute distress, Pt resting in bed Objective Objective Current Medications Medications (Trade) Dose Ordered Sig/Aleks Route PRN Reason Start Time Stop Time Status Last Admin Dose Admin Apixaban (Eliquis) 2.5 mg BID GT 01/01/19 21:00 01/31/19 20:59 01/28/19 09:29 Aspirin (ASA) 81 mg DAILY PEG 01/19/19 09:00 02/18/19 08:59 01/28/19 09:49 Atorvastatin Calcium (Lipitor) 10 mg BEDTIME GT 01/18/19 21:00 02/17/19 20:59 01/27/19 20:59 Carvedilol (Coreg) 3.125 mg EVERY 12 HOURS PEG 01/18/19 21:00 02/17/19 20:59 01/28/19 09:29 Clotrimazole (Lotrimin) 1 applic DAILY TOPIC 01/08/19 18:00 02/07/19 17:59 01/28/19 09:47 Dextrose (Dextrose 50%) 25 ml Q30M PRN IV Hypoglycemia 12/31/18 23:00 01/30/19 22:59 Dextrose (Dextrose 50%) 50 ml Q30M PRN IV Hypoglycemia 12/31/18 23:00 01/30/19 22:59 Docusate Sodium (Colace) 100 mg TWICE A DAY GT 01/18/19 18:00 02/17/19 17:59 01/24/19 09:23 Epoetin Vini (Epoetin Vini(ESRD on dialysis)) 10,000 unit FRI-FRI-FRI SUBQ 01/06/19 21:00 02/05/19 20:59 01/27/19 21:00 Escitalopram Oxalate (Lexapro) 20 mg DAILY GT 01/05/19 09:00 02/04/19 08:59 01/28/19 09:28 Hydralazine HCl (Apresoline) 25 mg Q4H PRN GT bp over 160 syst 01/06/19 15:00 02/05/19 14:59 Ibuprofen (Advil) 400 mg TIDPRN PRN ORAL For Pain 01/18/19 11:30 02/17/19 11:29 01/27/19 20:59 Insulin Aspart (NovoLOG) EVERY 6 HOURS SUBQ 01/01/19 00:00 01/31/19 00:00 01/28/19 05:12 Lansoprazole (Prevacid) 30 mg DAILY GT 01/16/19 09:00 02/15/19 08:59 01/28/19 09:28 Loperamide HCl (Imodium) 2 mg Q6H PRN GT Diarrhea 01/07/19 11:00 02/06/19 10:59 01/16/19 04:24 Last 24 Hour Vital Signs Date Time Temp Pulse Resp B/P (MAP) Pulse Ox O2 Delivery O2 Flow Rate FiO2 01/28/19 11:15 79 22 40 01/28/19 11:13 97 01/28/19 09:29 68 146/74 01/28/19 08:46 77 23 40 01/28/19 08:00 98.6 68 24 155/83 (107) 99 01/28/19 08:00 Mechanical Ventilator 01/28/19 08:00 40 01/28/19 07:41 68 01/28/19 07:03 74 19 40 01/28/19 05:01 70 24 40 01/28/19 04:00 40 01/28/19 04:00 Mechanical Ventilator 01/28/19 03:31 67 01/28/19 02:47 73 25 40 01/28/19 00:58 71 26 40 01/28/19 00:00 40 01/28/19 00:00 97.8 70 23 127/63 (84) 100 01/28/19 00:00 Mechanical Ventilator 01/28/19 00:00 71 01/27/19 23:05 70 23 40 01/27/19 21:29 98.6 01/27/19 21:00 70 130/76 01/27/19 20:55 73 23 40 01/27/19 20:00 71 01/27/19 20:00 98.0 70 26 130/76 (94) 100 01/27/19 20:00 40 01/27/19 20:00 Mechanical Ventilator 01/27/19 18:55 72 23 40 01/27/19 17:15 70 18 40 01/27/19 16:00 40 01/27/19 16:00 Mechanical Ventilator 01/27/19 16:00 98.6 70 23 159/64 (95) 100 01/27/19 15:28 74 16 40 01/27/19 15:23 70 01/27/19 13:26 69 18 40 01/27/19 12:00 Mechanical Ventilator 01/27/19 12:00 98.4 77 26 160/71 (100) 99 01/27/19 12:00 40 01/27/19 11:47 73 01/27/19 11:15 66 24 40 01/27/19 10:12 97 01/27/19 09:06 68 22 40 01/27/19 08:00 40 01/27/19 08:00 98.0 72 25 155/74 (101) 100 01/27/19 08:00 Mechanical Ventilator 01/27/19 07:53 73 01/27/19 07:06 62 25 40 01/27/19 05:05 76 26 40 01/27/19 04:00 Mechanical Ventilator 01/27/19 04:00 75 01/27/19 04:00 40 01/27/19 02:56 75 25 40 01/27/19 01:08 74 3 40 01/27/19 00:00 98.1 73 21 150/71 (97) 99 01/27/19 00:00 Mechanical Ventilator 01/27/19 00:00 40 01/27/19 00:00 76 01/26/19 23:08 78 25 40 01/26/19 21:14 80 28 40 01/26/19 20:56 76 140/48 01/26/19 20:00 40 01/26/19 20:00 74 01/26/19 20:00 97.9 74 21 140/60 (86) 99 01/26/19 20:00 Mechanical Ventilator 01/26/19 19:20 75 25 40 01/26/19 17:20 80 24 40 01/26/19 16:00 40 01/26/19 16:00 Mechanical Ventilator 01/26/19 15:33 74 23 40 01/26/19 15:27 72 01/26/19 13:00 80 31 40 01/26/19 12:00 97.5 71 24 109/56 (73) 99 01/26/19 12:00 40 01/26/19 12:00 Mechanical Ventilator 01/26/19 11:48 72 Intake and Output 01/27/19 01/28/19 19:00 07:00 Intake Total 540 ml 640 ml Balance 540 ml 640 ml Free Water 100 ml Tube Feeding 540 ml 540 ml # Bowel Movements 3 Height (Feet): 5 Height (Inches): 4.00 Weight (Pounds): 213 Objective PE General Appearance: mild distress, moderate distress Lines, tubes and drains: peripheral HEENT: EOMI, ++ thrush, tonsils swollen ++trach Neck: normal inspection Respiratory/Chest: decreased breath sounds, accessory muscle use. VENT++ Cardiovascular/Chest: tachycardia Abdomen: soft, no organomegaly, no mass, ++ peg Extremities: other Skin Exam: warm/dry, rash Neurologic: alert, responsive Zacarias Khoury MD Jan 28, 2019 11:39
--- NOTE | 2019-01-28 14:51 | Nephrology Progress Note ---
Assessment/Plan Problem List: (1) ESRD (end stage renal disease) on dialysis (2) Foot ulcer (3) CHF (congestive heart failure) Assessment: Ej Fx 20 % (4) Pacemaker (5) Acute respiratory failure Assessment: with Co2 retention (6) G-tube site cellulitis Assessment ESRD with high K and SOB on admit Foot ulcer, likely infected High Troponin likely NSTMI Pacer , Pleural effusion s/p CABGS s/p Liver transplant Plan dialysis 3 times weekly M W Fr or extra as needed labs before HD noted BP low- improved on midodrine per consultants, GI GT site infection, topical antibiotic Neuro note appreciated placement in process vascular esteban regarding heel ulcer per Dr Mcgill pain med change to dilaudid GT Now has tracheostomy and PEG Adjust BP meds add nitro paste TID Antibiotics by ID per cardio and ID Podiatry and Vascular surgical fu ? DC planning? Subjective ROS Limited/Unobtainable: No Constitutional: Reports: malaise Objective Objective Last 24 Hour Vital Signs Date Time Temp Pulse Resp B/P (MAP) Pulse Ox O2 Delivery O2 Flow Rate FiO2 01/28/19 13:10 81 21 40 01/28/19 12:00 Mechanical Ventilator 01/28/19 12:00 40 01/28/19 11:40 71 01/28/19 11:15 79 22 40 01/28/19 11:13 97 01/28/19 09:29 68 146/74 01/28/19 08:46 77 23 40 01/28/19 08:00 98.6 68 24 155/83 (107) 99 01/28/19 08:00 Mechanical Ventilator 01/28/19 08:00 40 01/28/19 07:41 68 01/28/19 07:03 74 19 40 01/28/19 05:01 70 24 40 01/28/19 04:00 40 01/28/19 04:00 Mechanical Ventilator 01/28/19 03:31 67 01/28/19 02:47 73 25 40 01/28/19 00:58 71 26 40 01/28/19 00:00 40 01/28/19 00:00 97.8 70 23 127/63 (84) 100 01/28/19 00:00 Mechanical Ventilator 01/28/19 00:00 71 01/27/19 23:05 70 23 40 6/12/19 21:29 98.6 01/27/19 21:00 70 130/76 01/27/19 20:55 73 23 40 01/27/19 20:00 71 01/27/19 20:00 98.0 70 26 130/76 (94) 100 01/27/19 20:00 40 01/27/19 20:00 Mechanical Ventilator 01/27/19 18:55 72 23 40 01/27/19 17:15 70 18 40 01/27/19 16:00 40 01/27/19 16:00 Mechanical Ventilator 01/27/19 16:00 98.6 70 23 159/64 (95) 100 01/27/19 15:28 74 16 40 01/27/19 15:23 70 Intake and Output 01/27/19 01/28/19 19:00 07:00 Intake Total 540 ml 640 ml Balance 540 ml 640 ml Free Water 100 ml Tube Feeding 540 ml 540 ml # Bowel Movements 3 Height (Feet): 5 Height (Inches): 4.00 Weight (Pounds): 213 General Appearance: no apparent distress Objective no other change Nakul Stevens MD Jan 28, 2019 14:51
--- NOTE | 2019-01-28 17:38 | Infectious Diseases Prog Note ---
Assessment/Plan Problems: (1) Foot ulcer Assessment & Plan: with MRSA grew out of it in the past, S/P vancomycin treatment with HD for two weeks, had vascular eval with revascularization to the right leg , S/P ulcer resection by animal impersonator . deep ulcer culture grew MRSA and E.coli with diphtheroids , possible colonization , with no evidence of active infection as per discussion with podiatry , no need to be started on antibiotics for now , will continue to monitor clinically and make recommendations as necessary . bone scan ruled out osteomyelitis of the heel before, couldn't do an MRI since on the vent . continue local wound care as per animal impersonator . (2) Diarrhea Assessment & Plan: improved, with no infectious etiology so far , and negative stool for C diff toxin , and no pathogens on stool culture , use laxatives as needed , monitor clinically , encourage hydration (3) Thrush, oral Assessment & Plan: resolved with local nystatin as needed , S/P micafungin for three weeks empirically (4) HCV antibody positive Assessment & Plan: no evidence of active infection, with undetectable viral load , suspect due to previous infection , cleared, S/P liver transplant . (5) DM (diabetes mellitus) Assessment & Plan: recommend tight glycemic control to keep blood glucose between 100-140 (6) CHF (congestive heart failure) Assessment & Plan: on HD , renal is following, monitor daily weight , S/P multiple thoracentesis (7) Severe tongue swelling Assessment & Plan: improving , s/p tracheostomy to protect his airway since respiratory status worsened . now improving, pulmonary is following (8) Pleural effusion Assessment & Plan: recurrent on the right, with lung collapse , S/P thoracentesis X 3 now with removal of 2.3 liters of clear fluids on 12/31/18 . await fluids culture and gram stain, with PH and Glucose level . PREVIOUS culture were negative with negative cytology. pulmonary is following (9) Ascites Assessment & Plan: S/P paracentesis with removal of 4.1 liters of fluids, culture so far is negative Assessment/Plan will continue to monitor patient on daily basis and make recommendations as necessary since he is high risk for recurrent infection Subjective Constitutional: Reports: no symptoms HEENT: Reports: no symptoms Respiratory: Reports: no symptoms Breasts: Reports: no symptoms Cardiovascular: Reports: no symptoms Gastrointestinal/Abdominal: Reports: no symptoms Genitourinary: Reports: no symptoms Neurologic: Reports: no symptoms Psychiatric: Reports: no symptoms Skin: Reports: no symptoms Endocrine: Reports: no symptoms Hematologic: Reports: no symptoms Musculoskeletal: Reports: no symptoms Allergies: Coded Allergies: CEPHALEXIN (Unverified Allergy, Unknown, 02/24/14) SULFAMETHOXAZOLE (Unverified Allergy, Unknown, 02/24/14) TRIMETHOPRIM (Unverified Allergy, Unknown, 02/24/14) Subjective he was comfortable, lying in bed, awake and responsive, no fever or chills, no significant secretions from the trach , no SOB . has left heel with wound VAC in place, but no draining coming out . no diarrhea . Objective Vital Signs Last 24 Hour Vital Signs Date Time Temp Pulse Resp B/P (MAP) Pulse Ox O2 Delivery O2 Flow Rate FiO2 01/28/19 17:05 87 20 40 01/28/19 16:00 Mechanical Ventilator 01/28/19 16:00 40 01/28/19 15:30 72 01/28/19 15:15 84 21 40 01/28/19 13:10 81 21 40 01/28/19 12:00 Mechanical Ventilator 01/28/19 12:00 40 01/28/19 11:40 71 01/28/19 11:15 79 22 40 01/28/19 11:13 97 01/28/19 09:29 68 146/74 01/28/19 08:46 77 23 40 01/28/19 08:00 98.6 68 24 155/83 (107) 99 01/28/19 08:00 Mechanical Ventilator 01/28/19 08:00 40 01/28/19 07:41 68 01/28/19 07:03 74 19 40 01/28/19 05:01 70 24 40 01/28/19 04:00 40 01/28/19 04:00 Mechanical Ventilator 01/28/19 03:31 67 01/28/19 02:47 73 25 40 01/28/19 00:58 71 26 40 01/28/19 00:00 40 01/28/19 00:00 97.8 70 23 127/63 (84) 100 01/28/19 00:00 Mechanical Ventilator 01/28/19 00:00 71 01/27/19 23:05 70 23 40 01/27/19 21:29 98.6 6/12/19 21:00 70 130/76 01/27/19 20:55 73 23 40 01/27/19 20:00 71 01/27/19 20:00 98.0 70 26 130/76 (94) 100 01/27/19 20:00 40 01/27/19 20:00 Mechanical Ventilator 01/27/19 18:55 72 23 40 Height (Feet): 5 Height (Inches): 4.00 Weight (Pounds): 213 General Appearance: WD/WN, no acute distress HEENT: normocephalic, atraumatic, anicteric, mucous membranes moist, PERRL, EOMI, pharynx normal, supple, no JVD, status post trach Respiratory/Chest: chest wall non-tender, no respiratory distress, no accessory muscle use, respiratory distress, decreased breath sounds, crackles/ rales Cardiovascular: normal peripheral pulses, normal rate, regular rhythm, no gallop/murmur, no JVD Abdomen: normal bowel sounds, soft, non tender, no organomegaly, non distended , no mass, no scars Genitourinary: normal external genitalia Extremities: no cyanosis, no clubbing Skin: no rash, no lesions, ulcers 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: 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 normal, alert, responsive Lymphatic: no neck adenopathy, no groin adenopathy Musculoskeletal: normal muscle bulk, no effusion Current Medications Medications (Trade) Dose Ordered Sig/Aleks Route PRN Reason Start Time Stop Time Status Last Admin Dose Admin Apixaban (Eliquis) 2.5 mg BID GT 01/01/19 21:00 01/31/19 20:59 01/28/19 09:29 Aspirin (ASA) 81 mg DAILY PEG 01/19/19 09:00 02/18/19 08:59 01/28/19 09:49 Atorvastatin Calcium (Lipitor) 10 mg BEDTIME GT 01/18/19 21:00 02/17/19 20:59 01/27/19 20:59 Carvedilol (Coreg) 3.125 mg EVERY 12 HOURS PEG 01/18/19 21:00 02/17/19 20:59 01/28/19 09:29 Clotrimazole (Lotrimin) 1 applic DAILY TOPIC 01/08/19 18:00 02/07/19 17:59 01/28/19 09:47 Dextrose (Dextrose 50%) 25 ml Q30M PRN IV Hypoglycemia 12/31/18 23:00 01/30/19 22:59 Dextrose (Dextrose 50%) 50 ml Q30M PRN IV Hypoglycemia 12/31/18 23:00 01/30/19 22:59 Docusate Sodium (Colace) 100 mg TWICE A DAY GT 01/18/19 18:00 02/17/19 17:59 01/24/19 09:23 Epoetin Vini (Epoetin Vini(ESRD on dialysis)) 10,000 unit SUBQ 01/06/19 21:00 02/05/19 20:59 01/27/19 21:00 Escitalopram Oxalate (Lexapro) 20 mg DAILY GT 01/05/19 09:00 02/04/19 08:59 01/28/19 09:28 Hydralazine HCl (Apresoline) 25 mg Q4H PRN GT bp over 160 syst 01/06/19 15:00 02/05/19 14:59 Ibuprofen (Advil) 400 mg TIDPRN PRN ORAL For Pain 01/18/19 11:30 02/17/19 11:29 01/28/19 13:09 Insulin Aspart (NovoLOG) EVERY 6 HOURS SUBQ 01/01/19 00:00 01/31/19 00:00 01/28/19 11:46 Lansoprazole (Prevacid) 30 mg DAILY GT 01/16/19 09:00 02/15/19 08:59 01/28/19 09:28 Loperamide HCl (Imodium) 2 mg Q6H PRN GT Diarrhea 01/07/19 11:00 02/06/19 10:59 01/16/19 04:24 Francois Landis M.D. Jan 28, 2019 17:38
--- NOTE | 2019-01-28 19:24 | Neurology Progress Note ---
Interim History Interim History Interim History Mr. Restrepo feels better. His mood is better. His spirits are fair. He was able to sleep well last night. He is being weaned off the ventilator and is getting a little tired. He is alert and bright. The right heel pain is about the same - and it is healing well. The right upper extremity is still swollen but less painful. He is still artificially ventilated. He feels that his strength is stable. The mind is clear. He denies any new neurological symptoms. He is still worried about his hearing. He had PT today and stood with his therapists. Review of Systems Neuro Review of Systems Benign. Objective Physical Exam Last Vital Signs Date Time Temp Pulse Resp B/P (MAP) Pulse Ox O2 Delivery O2 Flow Rate FiO2 01/28/19 18:44 75 29 40 01/28/19 16:00 Mechanical Ventilator 01/28/19 11:13 97 01/28/19 09:29 146/74 01/28/19 08:00 98.6 Neurologic Exam Objective PHYSICAL EXAMINATION: GENERAL: He is a well-developed, well-nourished, pleasant gentleman, lying in bed, connected to a ventilator via a tracheostomy. HEAD: Normocephalic and atraumatic. EENT: Examination benign. NECK: No neck rigidity was observed. He did have a tracheostomy. NEUROLOGICAL EXAMINATION: MENTAL STATUS EXAMINATION: He was awake and alert. He was oriented to person, place and time. He was able to recall 3/3 words immediately and was able to remember them in 1 and 3 minutes. He was able to remember presidents Trump through Mak Keny. His mathematical skills were fair. His visuospatial function was preserved. SPEECH: Could not be tested, but he was able to mouth words relatively well. LANGUAGE: He was able to comprehend and express himself relatively well. CRANIAL NERVES EXAMINATION: II: The visual mckeon were intact to confrontation testing. III, IV & : The external ocular movements were full and the pupils 3 mm in diameter, equal, round, regular, and reactive sluggishly to light. V: He had normal facial sensations, and the temporales, masseters, and pterygoids functioned normally. VII: He had normal facial expressions and no facial asymmetry. VIII: Hearing was decreased bilaterally with worse hearing on the left side compared to the right. IX: The palate moved symmetrically on phonation. X: Could not be tested. XI: The sternocleidomastoids and trapezii functioned normally. XII: The tongue was in the midline without any fasciculations or atrophy. MOTOR SYSTEM: The tone was normal in all four extremities. Examination of muscle mass revealed generalized muscle wasting. Examination of power revealed G 5/5 power except for G 4+/5 power in the iliopsoas muscles bilaterally. SENSORY EXAMINATION: He had intact sensations to light touch. Other sensory modalities could not be tested adequately. REFLEXES: 1+ and bilaterally symmetrical at the biceps, triceps, brachioradialis , and knees, 0 at both ankles. The plantar responses were flexor bilaterally. COORDINATION: He performed well on [id number] testing. STANCE & GAIT: Were deferred. Impression/Recommendations Diagnostic Impression 1. Mr. Gregg Restrepo is a 69-year-old, right-handed, gentleman with past history of multiple medical problems including hypertension, diabetes mellitus, end-stage renal disease for which he is hemodialysis dependent, prior episodes of sepsis, and prior episodes of encephalopathy, who was admitted to [facility] on October 31, 2018. Following that, he has had a stormy hospital course including pneumonia and sepsis, right foot infection, respiratory failure for which he has needed tracheostomy and in addition he has exhibited an alteration in his mental state with some waxing and waning of his mental state. 2. He feels better. His mood is better. His spirits are fair. He was able to sleep well last night. He is being weaned off the ventilator and is getting a little tired. He is alert and bright. The right heel pain is about the same - and it is healing well. The right upper extremity is still swollen but less painful. He is still artificially ventilated. He feels that his strength is stable. The mind is clear. He denies any new neurological symptoms. He is still worried about his hearing. He had PT today and stood with his therapists. 3. On neurological examination, at this time, he is fully oriented, his recent memory is normal. He has minimally impaired higher cognitive function. He is able to comprehend and express himself well. He does have mild G 4+/5 weakness in the iliopsoas muscles bilaterally. He had globally diminished deep tendon reflexes with loss of ankle jerks, but no definite focal or lateralizing neurological findings. 4. His latest laboratory data on my initial evaluation revealed that he was anemic with a hemoglobin of 10.8 G. His last blood gas performed on 11/14/2018 revealed that he had a pCO2 elevated at 56.4 with a normal pO2 of 88.3 and normal pH of 7.37. His latest chemistry panel revealed that he was mildly hyponatremic with a sodium of 130, and had a chloride of 90. The BUN was elevated at 75, creatinine elevated at 7.4, glucose elevated at 156, Hemoglobin A1c elevated at 6.9%, Alkaline phosphatase elevated at 131, and ProBNP greater than 35,000. His last B12 level on 11/07/2018 was 723. His last folate on was 18.6. His last TSH on 12/06/2018 was 4.82, which is minimally elevated. 5. The CT scan of the brain performed on 11/10/2018 was benign for acute intracranial pathology. 6. The EEG done on 12/08/18 revealed left temporal dysfunction. 7. The patient's history and neurological examination are most consistent with mild multifactorial encephalopathy, which apparently waxes and wanes, but no definite focal neurological dysfunction. His encephalopathy is stable. 8. He tells me that he had a brain bleed many years ago. I did review his imaging done at [facility] a few years ago and he had closed head injuries with subarachnoid and subdural blood in the past. 9. His mood is better. 10. There has never been a doubt regarding his ability to make decisions regarding his medical care. 11. He is worried about his hearing. 12. As per his speech pathologists, they will continue to follow him for swallowing therapy. Recommendations 1. Continue present management. 2. Continue to correct the patient's toxic metabolic imbalances. 3. Mobilize with PT/OT. 4. Consider ENT evaluation for hearing loss. 5. Watch mood closely. 6. Observe. Pantera Cool M.D., M.S.P.H. Pantera Cool MD Jan 28, 2019 19:24
[2019-01-28 20:00] VITALS: BP 148/85
--- NOTE | 2019-01-28 23:37 | Pulmonology Progress Note ---
Assessment/Plan Assessment/Plan Pulmonary Progress Note Assessment/Plan 1. Resp failure, hypercapnic 2. End-stage renal disease, on dialysis, status post multiple upper extremity vascular procedures. 3. Coronary artery bypass surgery. 4. Diabetes. 5. Dysphonia, tongue swelling, resolved; s/p trach 6. Trapped R lung with hydropneumothorax PLAN: weaning as tolerated CXR with trapped lung, stable no further thoracentesis disc w RN stable for subacute Subjective Constitutional: Reports: no symptoms Allergies: Coded Allergies: CEPHALEXIN (Unverified Allergy, Unknown, 02/24/14) SULFAMETHOXAZOLE (Unverified Allergy, Unknown, 02/24/14) TRIMETHOPRIM (Unverified Allergy, Unknown, 02/24/14) Objective Vital Signs Noted Objective trach on vent Laboratory Tests 01/25/19 05:52: White Blood Count 6.2, Red Blood Count 3.32L, Hemoglobin 8.3L, Hematocrit 26.0L , Mean Corpuscular Volume 78L, Mean Corpuscular Hemoglobin 25.0L, Mean Corpuscular Hemoglobin Concent 31.9L, Red Cell Distribution Width 16.4H, Platelet Count 256, Mean Platelet Volume 5.8L, Neutrophils (%) (Auto) 70.5, Lymphocytes (%) (Auto) 20.0, Monocytes (%) (Auto) 8.6, Eosinophils (%) (Auto) 0.0, Basophils (%) (Auto) 0.9, Sodium Level 131L, Potassium Level 3.5, Chloride Level 92L, Carbon Dioxide Level 31, Anion Gap 8, Blood Urea Nitrogen 83H, Creatinine 6.2H, Estimat Glomerular Filtration Rate 9.0, Glucose Level 187H, Calcium Level 9.3, Phosphorus Level 3.4, Total Bilirubin 0.4, Aspartate Amino Transf (AST/SGOT) 12L, Alanine Aminotransferase (ALT/SGPT) 14, Alkaline Phosphatase 128H, Total Protein 6.8, Albumin 2.0L, Globulin 4.8, Albumin/ Globulin Ratio 0.4L Current Medications Medications (Trade) Dose Ordered Sig/Aleks Route PRN Reason Start Time Stop Time Status Last Admin Dose Admin Apixaban (Eliquis) 2.5 mg BID GT 01/01/19 21:00 01/31/19 20:59 01/25/19 09:37 Aspirin (ASA) 81 mg DAILY PEG 01/19/19 09:00 02/18/19 08:59 01/25/19 09:36 Atorvastatin Calcium (Lipitor) 10 mg BEDTIME GT 01/18/19 21:00 02/17/19 20:59 01/24/19 20:42 Carvedilol (Coreg) 3.125 mg EVERY 12 HOURS PEG 01/18/19 21:00 02/17/19 20:59 01/24/19 20:43 Clotrimazole (Lotrimin) 1 applic DAILY TOPIC 01/08/19 18:00 02/07/19 17:59 01/25/19 10:24 Collagenase (Santyl) 1 applic DAILY TOPIC 12/29/18 09:00 01/28/19 08:59 01/25/19 10:25 Dextrose (Dextrose 50%) 25 ml Q30M PRN IV Hypoglycemia 12/31/18 23:00 01/30/19 22:59 Dextrose (Dextrose 50%) 50 ml Q30M PRN IV Hypoglycemia 12/31/18 23:00 01/30/19 22:59 Docusate Sodium (Colace) 100 mg TWICE A DAY GT 01/18/19 18:00 02/17/19 17:59 01/24/19 09:23 Epoetin Vini (Epoetin Vini(ESRD on dialysis)) 10,000 unit FRI-FRI-FRI SUBQ 01/06/19 21:00 02/05/19 20:59 01/22/19 21:21 Escitalopram Oxalate (Lexapro) 20 mg DAILY GT 01/05/19 09:00 02/04/19 08:59 01/25/19 09:36 Hydralazine HCl (Apresoline) 25 mg Q4H PRN GT bp over 160 syst 01/06/19 15:00 02/05/19 14:59 Ibuprofen (Advil) 400 mg TIDPRN PRN ORAL For Pain 01/18/19 11:30 02/17/19 11:29 01/25/19 15:57 Insulin Aspart (NovoLOG) EVERY 6 HOURS SUBQ 01/01/19 00:00 01/31/19 00:00 01/25/19 12:37 Lansoprazole (Prevacid) 30 mg DAILY GT 01/16/19 09:00 02/15/19 08:59 01/25/19 09:36 Loperamide HCl (Imodium) 2 mg Q6H PRN GT Diarrhea 01/07/19 11:00 02/06/19 10:59 01/16/19 04:24 Tacrolimus (Prograf) 2 mg MoWeFr@0000,1200 ORAL 12/28/18 00:00 01/27/19 00:00 01/25/19 12:36 Tacrolimus (Prograf) 2 mg SuTuThSa@0900,2100 ORAL 12/26/18 21:00 01/25/19 20:59 01/24/19 20:43 Subjective ROS Limited/Unobtainable: No Allergies: Coded Allergies: CEPHALEXIN (Unverified Allergy, Unknown, 02/24/14) SULFAMETHOXAZOLE (Unverified Allergy, Unknown, 02/24/14) TRIMETHOPRIM (Unverified Allergy, Unknown, 02/24/14) Objective Last 24 Hour Vital Signs Date Time Temp Pulse Resp B/P (MAP) Pulse Ox O2 Delivery O2 Flow Rate FiO2 01/28/19 22:58 74 23 40 01/28/19 21:26 72 22 40 01/28/19 21:00 Mechanical Ventilator 01/28/19 20:23 74 148/85 01/28/19 20:00 40 01/28/19 20:00 Mechanical Ventilator 01/28/19 20:00 97.6 74 22 148/85 (106) 100 01/28/19 19:13 75 01/28/19 18:44 75 29 40 01/28/19 17:05 87 20 40 01/28/19 16:00 Mechanical Ventilator 01/28/19 16:00 40 01/28/19 15:30 72 01/28/19 15:15 84 21 40 01/28/19 13:10 81 21 40 01/28/19 12:00 Mechanical Ventilator 01/28/19 12:00 40 01/28/19 11:40 71 01/28/19 11:15 79 22 40 01/28/19 11:13 97 01/28/19 09:29 68 146/74 01/28/19 08:46 77 23 40 01/28/19 08:00 98.6 68 24 155/83 (107) 99 01/28/19 08:00 Mechanical Ventilator 01/28/19 08:00 40 01/28/19 07:41 68 01/28/19 07:03 74 19 40 6/13/19 05:01 70 24 40 01/28/19 04:00 40 01/28/19 04:00 Mechanical Ventilator 01/28/19 03:31 67 01/28/19 02:47 73 25 40 01/28/19 00:58 71 26 40 01/28/19 00:00 40 01/28/19 00:00 97.8 70 23 127/63 (84) 100 01/28/19 00:00 Mechanical Ventilator 01/28/19 00:00 71 Intake and Output 01/27/19 01/28/19 19:00 07:00 Intake Total 540 ml 640 ml Balance 540 ml 640 ml Free Water 100 ml Tube Feeding 540 ml 540 ml # Bowel Movements 3 Current Medications Medications (Trade) Dose Ordered Sig/Aleks Route PRN Reason Start Time Stop Time Status Last Admin Dose Admin Apixaban (Eliquis) 2.5 mg BID GT 01/01/19 21:00 01/31/19 20:59 01/28/19 17:44 Aspirin (ASA) 81 mg DAILY PEG 01/19/19 09:00 02/18/19 08:59 01/28/19 09:49 Atorvastatin Calcium (Lipitor) 10 mg BEDTIME GT 01/18/19 21:00 02/17/19 20:59 01/28/19 20:24 Carvedilol (Coreg) 3.125 mg EVERY 12 HOURS PEG 01/18/19 21:00 02/17/19 20:59 01/28/19 20:23 Clotrimazole (Lotrimin) 1 applic DAILY TOPIC 01/08/19 18:00 02/07/19 17:59 01/28/19 09:47 Dextrose (Dextrose 50%) 25 ml Q30M PRN IV Hypoglycemia 12/31/18 23:00 01/30/19 22:59 Dextrose (Dextrose 50%) 50 ml Q30M PRN IV Hypoglycemia 12/31/18 23:00 01/30/19 22:59 Docusate Sodium (Colace) 100 mg TWICE A DAY GT 01/18/19 18:00 02/17/19 17:59 01/24/19 09:23 Epoetin Vini (Epoetin Vini(ESRD on dialysis)) 10,000 unit FRI-FRI-FRI SUBQ 01/06/19 21:00 02/05/19 20:59 01/27/19 21:00 Escitalopram Oxalate (Lexapro) 20 mg DAILY GT 01/05/19 09:00 02/04/19 08:59 01/28/19 09:28 Hydralazine HCl (Apresoline) 25 mg Q4H PRN GT bp over 160 syst 01/06/19 15:00 02/05/19 14:59 Ibuprofen (Advil) 400 mg TIDPRN PRN ORAL For Pain 01/18/19 11:30 02/17/19 11:29 01/28/19 20:24 Insulin Aspart (NovoLOG) EVERY 6 HOURS SUBQ 01/01/19 00:00 01/31/19 00:00 01/28/19 23:14 Lansoprazole (Prevacid) 30 mg DAILY GT 01/16/19 09:00 02/15/19 08:59 01/28/19 09:28 Loperamide HCl (Imodium) 2 mg Q6H PRN GT Diarrhea 01/07/19 11:00 02/06/19 10:59 01/28/19 20:49 Dhruv Baca MD Jan 28, 2019 23:37
--- NOTE | 2019-01-29 03:45 | Progress Note ---
DATE: 01/28/2019 SUBJECTIVE: is improving. The patient . MENTAL STATUS EXAMINATION: The patient is alert and oriented x4. . Mood is dysphoric. Affect is constricted, congruent with mood. Thought process is linear. Thought content, no suicidal or homicidal ideations. ASSESSMENT: Major depressive disorder. PLAN: The patient will continue current medication. Provide the patient with reality orientation and supportive therapy. Jeffrey Lala M.D. DR: LAINE JOB#: [id number] CC:
[2019-01-29] MEDS: NovoLOG Insulin Flexpen SUBQ SCH ×4 (05:13→23:31)
[2019-01-29 08:00] VITALS: BP 151/75
[2019-01-29] MEDS: Docusate 100mg/10ml Liq GT SCH ×2 (09:10→17:34)
[2019-01-29] MEDS: Eliquis 2.5mg tablet GT SCH ×2 (09:10→17:34)
[2019-01-29] MEDS: Aspirin Baby 81mg PEG SCH (09:11)
--- NOTE | 2019-01-29 09:21 | Hematology/Onc Progress Note ---
Assessment/Plan Assessment/Plan Assessment and Recs: # Anemia of chronic disease due to underlying chronic medical issues, range has been 8-11, ferritin is 633, tibc is low --> Pt refused 01/21/19 am lab draw no recent draws. --> No evidence of hemolysis is noted, peripheral smear has been reviewed. --> Epogen with HD 3x/wk --> Medications have been reviewed --> evaluate with Gi team prn --> transfuse if hgb is < 7 (will trend CBC daily) --> hgb trend 11.2-->10.9-->10.8-->10.7-->10.2-->9.7-->9.7-->8.5-->9-->9.2-->8.4 -->7.7-->8.8-->9.1-->8.6-->8.3-->8.9 --> s/p transfusion on 01/06 # Failure to thrive is likely related to poor overall status, poor functional status --> GT++ as per gi --> with multiple decub ulcerations that are noted, seen by id/surgery --> s/p trach as well --> cea is wnl # Acute non-occlusive dvt, right extremity ultrasound (acute non-occlusive DVT in internal jugular) --> currently is on eliquis 2.5mg po bid --> do not recommend a SVC filter --> given prior bleeding risk, hold off on heparin gtt --> vasc surgeon is aware, seek recs # Coagulopathy likely secondary to decreased Vitk dependent cofactors (high INR , PT) --> monitor closely for any evidence of bleeding. Currently is on eliquis --> VIT K on prn basis sq can be administered --> recently has improved inr 1.2-->1.1-->1.2-->1.1-->1.1 # Acute respiratory failure is now s/p trach to vent --> as per surgery recs # Ground glass opacities present on imaging of lung --> with pleural effusions, s/p drainage at this time --> no evidence for malignancy is noted --> as per pulm/id # Pleural effusion --> s/p thoracentesis, s/p paracentesis 12/31 --> no evidence of malignancy -->01/14 cxr: Interstitial edema, small left pleural effusion # Hyperkalemia --> kayxelate on prn basis per renal --> monitor K+ # Renal failure --> per renal recs, appreciated --> getting hd as per schedule 3x week # Altered level of consciousness --> currently as per baseline --> neuro eval prn # PAD off heparin gtt and now on eliquis --> per vasc and cards --> 12/22 s/p right leg angiogram with intervention --> on eliquis, continue # Gt tube cellulitis, on topical abx as per id around site The timing of this note does not necessarily reflect the time of the patient was seen. Greatly appreciate consultation! Subjective Allergies: Coded Allergies: CEPHALEXIN (Unverified Allergy, Unknown, 02/24/14) SULFAMETHOXAZOLE (Unverified Allergy, Unknown, 02/24/14) TRIMETHOPRIM (Unverified Allergy, Unknown, 02/24/14) Subjective 11/30: comfortable, on abx, no complaints, on t-piece 12/01: to have hd done potentially tomorrow, is more alert/awake 12/02: no major bleeding, hgb remains approx 11, no changes 12/03: no events, breathing mildly better, hgb is improved 12/04: on vent/trach, no major changes, sr ekg 12/10: small amount of secretions, on trach/vent, no issues otherwise 12/11: no major issues, no complaints, labs reviewed, no sig changes 12/13: no events to report, no fevers or chills, awaiting placement 12/14: no changes, no major events to report, no fevers or chills 12/15: pending placement, getting gt feeds and hd as per renal 12/16: labs have been reviewed, cbc noted, no changes 12/17: no events, no fevers, no cp, hgb remains stable 12/18: restarted on heparin gtt, seen by pulm, cards 12/20: continues to be on heparin gtt, no bleeding reported, no f/c 12/21: hd for today, no fevers or chils, off hep gtt on eliquis 12/22: to get hd tomorrow, today is s/p right leg angiogram with intervention 12/23: hgb remins stable, no fevers or chills reported 12/24: no events, no bleeding, vitals reviewed, cbc stable 12/25: no events, no bleeding, on vent, hgb 9 12/27: no changes, no f/c, no night swearts, seen with other providers 12/28: right extremity ultrasound (acute non-occlusive DVT in internal jugular, on eliquis 12/29: no events, no night sweats, seen by gi, no bleeding 12/30: cbc has been reviewed, no f/c, no night sweats reported 12/31: no events, eliquis is on hold cbc has been reviewed, bp elevated 01/01: no fevers or chills, cbc reviewed, hgb 9.3, getting HD 01/02: no events noted, getting norco for pain, hgb stable 01/04: not events to report, no bleeding, refusing ivl at this time, cbc reviewed 01/05: no fevers or chills noted, s/p trach/vent, no f/c, no chills noted 01/06: no events, to get 1 unit prbc today, renal seen, on abx 01/07: hd for tomorrow, seen by renal, no events, cbc reviewed 01/08: getting Hd today, seen by renal, no major events, in sr 01/10: no events to report, to get hd tomorrow, hgb stable 01/11: on vent/trach, gtube, tolerating treatment well, hd today 01/12: remains nonverbal, stable, on vent/trach, no fc 01/13: no events noted, cbc has been reviewed 01/14: thora and para fluid still neg for malignancy, no bleeding 01/15: Pt examined at bedside. No acute events. Pt refusing IV access per nursing per nursing team. 01/17: Pt is awake and alert. Pt in stable condition. Hgb trending down: 8.3 will continue to monitor 01/18: Pt complain of abdominal pain and DIAZ. Hgb trend 8.3-->8.9 01/19: no events, cbc has been reviewed, hgb is stable today 01/20: Awake and alert, able to follow commands. Remains on vent. 01/21: Patient awake in bed. Trach to vent. Pt refused am lab draw. 01/22: no events, dc planning 01/23: no events, dc planning, on epogen and eliquis 01/26: no events, no f/c, tolerating trach well, hD prn 01/27: Patient is awake and oriented x4 no signs of distress 01/28: No acute distress, Pt resting in bed 01/29: no overnight events. Objective Objective Current Medications Medications (Trade) Dose Ordered Sig/Aleks Route PRN Reason Start Time Stop Time Status Last Admin Dose Admin Apixaban (Eliquis) 2.5 mg BID GT 01/01/19 21:00 01/31/19 20:59 01/29/19 09:10 Aspirin (ASA) 81 mg DAILY PEG 01/19/19 09:00 02/18/19 08:59 01/29/19 09:11 Atorvastatin Calcium (Lipitor) 10 mg BEDTIME GT 01/18/19 21:00 02/17/19 20:59 01/28/19 20:24 Carvedilol (Coreg) 3.125 mg EVERY 12 HOURS PEG 01/18/19 21:00 02/17/19 20:59 01/29/19 09:11 Clotrimazole (Lotrimin) 1 applic DAILY TOPIC 01/08/19 18:00 02/07/19 17:59 01/29/19 09:11 Dextrose (Dextrose 50%) 25 ml Q30M PRN IV Hypoglycemia 12/31/18 23:00 01/30/19 22:59 Dextrose (Dextrose 50%) 50 ml Q30M PRN IV Hypoglycemia 12/31/18 23:00 01/30/19 22:59 Docusate Sodium (Colace) 100 mg TWICE A DAY GT 01/18/19 18:00 02/17/19 17:59 01/29/19 09:10 Epoetin Vini (Epoetin Vini(ESRD on dialysis)) 10,000 unit FRI-WED-FRI SUBQ 01/06/19 21:00 02/05/19 20:59 01/27/19 21:00 Escitalopram Oxalate (Lexapro) 20 mg DAILY GT 01/05/19 09:00 02/04/19 08:59 01/29/19 09:10 Hydralazine HCl (Apresoline) 25 mg Q4H PRN GT bp over 160 syst 01/06/19 15:00 02/05/19 14:59 Ibuprofen (Advil) 400 mg TIDPRN PRN ORAL For Pain 01/18/19 11:30 02/17/19 11:29 01/28/19 20:24 Insulin Aspart (NovoLOG) EVERY 6 HOURS SUBQ 01/01/19 00:00 01/31/19 00:00 01/28/19 23:14 Lansoprazole (Prevacid) 30 mg DAILY GT 01/16/19 09:00 02/15/19 08:59 01/29/19 09:11 Loperamide HCl (Imodium) 2 mg Q6H PRN GT Diarrhea 01/07/19 11:00 02/06/19 10:59 01/28/19 20:49 Last 24 Hour Vital Signs Date Time Temp Pulse Resp B/P (MAP) Pulse Ox O2 Delivery O2 Flow Rate FiO2 01/29/19 09:11 77 151/75 01/29/19 08:00 40 01/29/19 07:41 77 26 40 01/29/19 07:25 75 23 40 01/29/19 05:26 71 25 40 01/29/19 04:00 40 01/29/19 04:00 Mechanical Ventilator 01/29/19 03:32 73 01/29/19 02:58 76 24 40 01/29/19 01:03 70 26 40 01/29/19 00:00 Mechanical Ventilator 01/28/19 23:31 71 01/28/19 22:58 74 23 40 01/28/19 21:26 72 22 40 01/28/19 21:00 Mechanical Ventilator 01/28/19 20:23 74 148/85 01/28/19 20:00 40 01/28/19 20:00 Mechanical Ventilator 01/28/19 20:00 97.6 74 22 148/85 (106) 100 01/28/19 19:13 75 01/28/19 18:44 75 29 40 01/28/19 17:05 87 20 40 01/28/19 16:00 Mechanical Ventilator 01/28/19 16:00 40 01/28/19 15:30 72 01/28/19 15:15 84 21 40 01/28/19 13:10 81 21 40 01/28/19 12:00 Mechanical Ventilator 01/28/19 12:00 40 01/28/19 11:40 71 01/28/19 11:15 79 22 40 01/28/19 11:13 97 01/28/19 09:29 68 146/74 01/28/19 08:46 77 23 40 01/28/19 08:00 98.6 68 24 155/83 (107) 99 01/28/19 08:00 Mechanical Ventilator 01/28/19 08:00 40 01/28/19 07:41 68 01/28/19 07:03 74 19 40 01/28/19 05:01 70 24 40 01/28/19 04:00 40 01/28/19 04:00 Mechanical Ventilator 01/28/19 03:31 67 01/28/19 02:47 73 25 40 01/28/19 00:58 71 26 40 01/28/19 00:00 40 01/28/19 00:00 97.8 70 23 127/63 (84) 100 01/28/19 00:00 Mechanical Ventilator 01/28/19 00:00 71 01/27/19 23:05 70 23 40 01/27/19 21:29 98.6 01/27/19 21:00 70 130/76 01/27/19 20:55 73 23 40 01/27/19 20:00 71 01/27/19 20:00 98.0 70 26 130/76 (94) 100 01/27/19 20:00 40 01/27/19 20:00 Mechanical Ventilator 01/27/19 18:55 72 23 40 01/27/19 17:15 70 18 40 01/27/19 16:00 40 01/27/19 16:00 Mechanical Ventilator 01/27/19 16:00 98.6 70 23 159/64 (95) 100 01/27/19 15:28 74 16 40 01/27/19 15:23 70 01/27/19 13:26 69 18 40 01/27/19 12:00 Mechanical Ventilator 01/27/19 12:00 98.4 77 26 160/71 (100) 99 01/27/19 12:00 40 01/27/19 11:47 73 01/27/19 11:15 66 24 40 01/27/19 10:12 97 Intake and Output 01/28/19 01/29/19 19:00 07:00 Intake Total 540 ml 640 ml Output Total 3000 ml Balance -2460 ml 640 ml Free Water 100 ml Tube Feeding 540 ml 540 ml Other 3000 ml # Bowel Movements 2 6 Height (Feet): 5 Height (Inches): 4.00 Weight (Pounds): 207 Objective PE General Appearance: mild distress, moderate distress Lines, tubes and drains: peripheral HEENT: EOMI, ++ thrush, tonsils swollen ++trach Neck: normal inspection Respiratory/Chest: decreased breath sounds, accessory muscle use. VENT++ Cardiovascular/Chest: tachycardia Abdomen: soft, no organomegaly, no mass, ++ peg Extremities: other Skin Exam: warm/dry, rash Neurologic: alert, responsive Zacarias Khoury MD Jan 29, 2019 09:21
--- NOTE | 2019-01-29 09:40 | General Progress Note ---
Assessment/Plan Problem List: (1) Transplant ICD Codes: Z94.9 - Transplanted organ and tissue status, unspecified SNOMED: 619375695 (2) HTN (hypertension) ICD Codes: I10 - Essential (primary) hypertension SNOMED: 50242300 (3) Pacemaker ICD Codes: Z95.0 - Presence of cardiac pacemaker SNOMED: 504476230 (4) CHF (congestive heart failure) ICD Codes: I50.9 - Heart failure, unspecified SNOMED: 77746366 (5) DM (diabetes mellitus) ICD Codes: E11.9 - Type 2 diabetes mellitus without complications SNOMED: 73594941 (6) Foot ulcer ICD Codes: L97.509 - Non-pressure chronic ulcer of other part of unspecified foot with unspecified severity SNOMED: 12008040 Qualifiers: Qualified Codes: L97.511 - Non-pressure chronic ulcer of other part of right foot limited to breakdown of skin (7) ESRD (end stage renal disease) on dialysis ICD Codes: N18.6 - End stage renal disease; Z99.2 - Dependence on renal dialysis SNOMED: 151979705 Assessment/Plan: History of liver transplant, currently on Prograf History of cholecystectomy status post tracheostomy and PEG Infected G-tube site, fu ID recs C. difficile negative x 2 would care cx >> GRAM NEGATIVE BACILLUS CT AP reviewed, Moderate to large right pleural effusion. Moderate Ascites. s/p Paracentesis yielding 4.1 yield, r/o SBP >> negative for malignant cells Status post right thoracentesis yielding 2.1 L >> negative for malignant cells Continue G-tube feedings GT site care BID/prn topical abx around GT site per ID HD per nephro cont tacrolimus prn transfusions ppi zofran prn Imodium prn, Lomotil for persistent diarrhea follow labs supportive care outpatient Hep C tx, pending RNA PCR monitor LFTS Lomotil prn Subjective ROS Limited/Unobtainable: No Allergies: Coded Allergies: CEPHALEXIN (Unverified Allergy, Unknown, 02/24/14) SULFAMETHOXAZOLE (Unverified Allergy, Unknown, 02/24/14) TRIMETHOPRIM (Unverified Allergy, Unknown, 02/24/14) Subjective he pulled his NGT again Objective Last 24 Hour Vital Signs Date Time Temp Pulse Resp B/P (MAP) Pulse Ox O2 Delivery O2 Flow Rate FiO2 01/29/19 09:11 77 151/75 01/29/19 08:00 40 01/29/19 07:41 77 26 40 01/29/19 07:25 75 23 40 01/29/19 05:26 71 25 40 01/29/19 04:00 40 01/29/19 04:00 Mechanical Ventilator 01/29/19 03:32 73 01/29/19 02:58 76 24 40 01/29/19 01:03 70 26 40 01/29/19 00:00 Mechanical Ventilator 01/28/19 23:31 71 01/28/19 22:58 74 23 40 01/28/19 21:26 72 22 40 01/28/19 21:00 Mechanical Ventilator 01/28/19 20:23 74 148/85 01/28/19 20:00 40 01/28/19 20:00 Mechanical Ventilator 01/28/19 20:00 97.6 74 22 148/85 (106) 100 01/28/19 19:13 75 01/28/19 18:44 75 29 40 01/28/19 17:05 87 20 40 01/28/19 16:00 Mechanical Ventilator 01/28/19 16:00 40 01/28/19 15:30 72 01/28/19 15:15 84 21 40 01/28/19 13:10 81 21 40 01/28/19 12:00 Mechanical Ventilator 01/28/19 12:00 40 01/28/19 11:40 71 01/28/19 11:15 79 22 40 01/28/19 11:13 97 Intake and Output 01/28/19 01/29/19 19:00 07:00 Intake Total 540 ml 640 ml Output Total 3000 ml Balance -2460 ml 640 ml Free Water 100 ml Tube Feeding 540 ml 540 ml Other 3000 ml # Bowel Movements 2 6 Height (Feet): 5 Height (Inches): 4.00 Weight (Pounds): 207 General Appearance: alert EENT: normal ENT inspection Neck: supple Cardiovascular: normal rate Respiratory/Chest: decreased breath sounds Abdomen: normal bowel sounds, non tender, soft Extremities: non-tender Jorge Escalera MD Jan 29, 2019 09:40
--- NOTE | 2019-01-29 10:34 | General Progress Note ---
Assessment/Plan Assessment/Plan: #Right heel diabetic foot ulcer without osteomyelitis #PAD #Right IJ DVT -seen by Podiatry and ID -s/p Vanco x 2 weeks during HD -continue Eliquis -Vascular Surgery and Hematology following #Acute Resp hypercapnic failure s/p tracheostomy #Angioedema #Large right pleural effusion # R side trapped lung -continue trach care -Remains vent-dependant, breathing trials ongoing -Right thoracentesis 01/01/19 with 2.3 lt removed. Post procedure CXR with R trapped lung. -Vent weaning, patient agreebale #End-stage renal disease, on dialysis -W- #RUE edema #Anasarca, ascites, scrotal edema, pleural effusion due to hypoalbuminemia -HD with UF per Nephrology -s/p PRBC transfusion during HD #Coronary artery disease -continue ASA, Coreg, atorvastatin -cardiology following #Type 2 DM -ISS #Acute metabolic encephalopathy -continue supportive care -Neurology following #history of chronic HCV infection #history of liver transplant -continue Prograf -GI following #Abdominal distension and ascites s/p therapeutic paracentesis -no nausea, vomiting or tenderness -continue supportive care -GI following -s/p paracentesis 12/31/18 4.1 lt #Dysphagia S/p PEG with PEG site cellulitis -s/p antibiotics per ID and GI -continue local wound care -tolerating tube feeds #FULL CODE #Dispo planning Subjective Date patient seen: Jan 29, 2019 Time patient seen: 10:27 ROS Limited/Unobtainable: Yes Cardiovascular: Denies: chest pain Respiratory: Denies: cough Gastrointestinal/Abdominal: Denies: abdomen distended Allergies: Coded Allergies: CEPHALEXIN (Unverified Allergy, Unknown, 02/24/14) SULFAMETHOXAZOLE (Unverified Allergy, Unknown, 02/24/14) TRIMETHOPRIM (Unverified Allergy, Unknown, 02/24/14) Subjective Medicine follow up for acute resp failure, PAD, right heel infected DFU, ESRD, anasarca secondary to hypoalbuminemia, right IJ DVT. S/p 4 liter paracentesis and 2 liter thoracentesis. No new issues overnight. Spoke to him about the importance of weaning him off the went in order to find a SNF for discharge, he expressed understanding. Objective Last 24 Hour Vital Signs Date Time Temp Pulse Resp B/P (MAP) Pulse Ox O2 Delivery O2 Flow Rate FiO2 6/14/19 09:36 75 24 40 01/29/19 09:11 77 151/75 01/29/19 08:00 40 01/29/19 08:00 76 01/29/19 07:25 75 23 40 01/29/19 05:26 71 25 40 01/29/19 04:00 40 01/29/19 04:00 Mechanical Ventilator 01/29/19 03:32 73 01/29/19 02:58 76 24 40 01/29/19 01:03 70 26 40 01/29/19 00:00 Mechanical Ventilator 01/28/19 23:31 71 01/28/19 22:58 74 23 40 01/28/19 21:26 72 22 40 01/28/19 21:00 Mechanical Ventilator 01/28/19 20:23 74 148/85 01/28/19 20:00 40 01/28/19 20:00 Mechanical Ventilator 01/28/19 20:00 97.6 74 22 148/85 (106) 100 01/28/19 19:13 75 01/28/19 18:44 75 29 40 01/28/19 17:05 87 20 40 01/28/19 16:00 Mechanical Ventilator 01/28/19 16:00 40 01/28/19 15:30 72 01/28/19 15:15 84 21 40 01/28/19 13:10 81 21 40 01/28/19 12:00 Mechanical Ventilator 01/28/19 12:00 40 01/28/19 11:40 71 01/28/19 11:15 79 22 40 01/28/19 11:13 97 Intake and Output 01/28/19 01/29/19 19:00 07:00 Intake Total 540 ml 640 ml Output Total 3000 ml Balance -2460 ml 640 ml Free Water 100 ml Tube Feeding 540 ml 540 ml Other 3000 ml # Bowel Movements 2 6 Height (Feet): 5 Height (Inches): 4.00 Weight (Pounds): 207 General Appearance: no apparent distress, alert Neck: non-tender Cardiovascular: normal rate, regular rhythm Respiratory/Chest: lungs clear, normal breath sounds, no respiratory distress Abdomen: non tender, soft, no organomegaly Dennis Branham MD Jan 29, 2019 10:34
[2019-01-29 12:00] VITALS: BP 159/70
--- NOTE | 2019-01-29 13:10 | Cardiac Electrophysiology PN ---
Assessment/Plan Assessment/Plan 1. Troponin leak due to renal failure. No CP or SOB. Nl EF 2. Hx of CABG. On Coreg, aspirin and Lipitor 3. NSVT in setting of old [place] and CABG. EF 55%. Continue Coreg. No Syncope 4. CHF and right pleural effusion. On hemodialysis. S/P Thoracentesis 5. S/P Right sided [employer] DDD pacemaker with Nl Fx. 6. End-stage renal disease, on hemodialysis MWF per Dr. Stevens 7. Multilevel AOD LE's with non-healing Right foot ulcer. Had abdominal angiogram per Dr Salmeron Antibiotic per Dr. Landis. FU by Dr. Huizar S/P peripheral intervention by Dr. Salmeron 12/22/18 8. History of liver transplant on Prograf 9. Respiratory failure, S/P tracheostomy. 10. Pleural effusion. s/p thoracentesis 01/01/19 11. Dysphagia, S/P PEG DW RN Subjective Subjective Alert in NAD. No CP or SOB. Had HD yesterday. Awaiting placement Objective Last 24 Hour Vital Signs Date Time Temp Pulse Resp B/P (MAP) Pulse Ox O2 Delivery O2 Flow Rate FiO2 01/29/19 12:00 40 01/29/19 12:00 Mechanical Ventilator 01/29/19 12:00 71 01/29/19 10:05 76 22 40 01/29/19 09:36 75 24 40 01/29/19 09:11 77 151/75 01/29/19 08:00 Mechanical Ventilator 01/29/19 08:00 40 01/29/19 08:00 76 01/29/19 07:25 75 23 40 01/29/19 05:26 71 25 40 01/29/19 04:00 40 01/29/19 04:00 Mechanical Ventilator 01/29/19 03:32 73 01/29/19 02:58 76 24 40 01/29/19 01:03 70 26 40 01/29/19 00:00 Mechanical Ventilator 01/28/19 23:31 71 01/28/19 22:58 74 23 40 01/28/19 21:26 72 22 40 01/28/19 21:00 Mechanical Ventilator 01/28/19 20:23 74 148/85 01/28/19 20:00 40 01/28/19 20:00 Mechanical Ventilator 01/28/19 20:00 97.6 74 22 148/85 (106) 100 01/28/19 19:13 75 01/28/19 18:44 75 29 40 01/28/19 17:05 87 20 40 01/28/19 16:00 Mechanical Ventilator 01/28/19 16:00 40 01/28/19 15:30 72 01/28/19 15:15 84 21 40 01/28/19 13:10 81 21 40 Intake and Output 01/28/19 01/29/19 19:00 07:00 Intake Total 540 ml 640 ml Output Total 3000 ml Balance -2460 ml 640 ml Free Water 100 ml Tube Feeding 540 ml 540 ml Other 3000 ml # Bowel Movements 2 6 Objective HEAD AND NECK: No JVD. Tracheostomy intact LUNGS: Clear CARDIOVASCULAR: Irregular S1 and S2 with no gallop. Sternotomy is intact Pacemaker in the right subclavian ABDOMEN: Soft. PEG in place EXTREMITIES: Right heel connected to WoundVac Shivam Sharpe MD Jan 29, 2019 13:10
--- NOTE | 2019-01-29 13:30 | Pulmonology Progress Note ---
Assessment/Plan Assessment/Plan Pulmonary Progress Note Assessment/Plan 1. Resp failure, hypercapnic 2. End-stage renal disease, on dialysis, status post multiple upper extremity vascular procedures. 3. Coronary artery bypass surgery. 4. Diabetes. 5. Dysphonia, tongue swelling, resolved; s/p trach 6. Trapped R lung with hydropneumothorax PLAN: weaning as tolerated CXR with trapped lung, stable no further thoracentesis disc w RN stable for subacute Subjective Constitutional: Reports: no symptoms Allergies: Coded Allergies: CEPHALEXIN (Unverified Allergy, Unknown, 02/24/14) SULFAMETHOXAZOLE (Unverified Allergy, Unknown, 02/24/14) TRIMETHOPRIM (Unverified Allergy, Unknown, 02/24/14) Objective Vital Signs Noted Objective trach on vent Laboratory Tests 01/25/19 05:52: White Blood Count 6.2, Red Blood Count 3.32L, Hemoglobin 8.3L, Hematocrit 26.0L , Mean Corpuscular Volume 78L, Mean Corpuscular Hemoglobin 25.0L, Mean Corpuscular Hemoglobin Concent 31.9L, Red Cell Distribution Width 16.4H, Platelet Count 256, Mean Platelet Volume 5.8L, Neutrophils (%) (Auto) 70.5, Lymphocytes (%) (Auto) 20.0, Monocytes (%) (Auto) 8.6, Eosinophils (%) (Auto) 0.0, Basophils (%) (Auto) 0.9, Sodium Level 131L, Potassium Level 3.5, Chloride Level 92L, Carbon Dioxide Level 31, Anion Gap 8, Blood Urea Nitrogen 83H, Creatinine 6.2H, Estimat Glomerular Filtration Rate 9.0, Glucose Level 187H, Calcium Level 9.3, Phosphorus Level 3.4, Total Bilirubin 0.4, Aspartate Amino Transf (AST/SGOT) 12L, Alanine Aminotransferase (ALT/SGPT) 14, Alkaline Phosphatase 128H, Total Protein 6.8, Albumin 2.0L, Globulin 4.8, Albumin/ Globulin Ratio 0.4L Current Medications Medications (Trade) Dose Ordered Sig/Aleks Route PRN Reason Start Time Stop Time Status Last Admin Dose Admin Apixaban (Eliquis) 2.5 mg BID GT 01/01/19 21:00 01/31/19 20:59 01/25/19 09:37 Aspirin (ASA) 81 mg DAILY PEG 01/19/19 09:00 02/18/19 08:59 01/25/19 09:36 Atorvastatin Calcium (Lipitor) 10 mg BEDTIME GT 01/18/19 21:00 02/17/19 20:59 01/24/19 20:42 Carvedilol (Coreg) 3.125 mg EVERY 12 HOURS PEG 01/18/19 21:00 02/17/19 20:59 01/24/19 20:43 Clotrimazole (Lotrimin) 1 applic DAILY TOPIC 01/08/19 18:00 02/07/19 17:59 01/25/19 10:24 Collagenase (Santyl) 1 applic DAILY TOPIC 12/29/18 09:00 01/28/19 08:59 01/25/19 10:25 Dextrose (Dextrose 50%) 25 ml Q30M PRN IV Hypoglycemia 12/31/18 23:00 01/30/19 22:59 Dextrose (Dextrose 50%) 50 ml Q30M PRN IV Hypoglycemia 12/31/18 23:00 01/30/19 22:59 Docusate Sodium (Colace) 100 mg TWICE A DAY GT 01/18/19 18:00 02/17/19 17:59 01/24/19 09:23 Epoetin Vini (Epoetin Vini(ESRD on dialysis)) 10,000 unit FRI-FRI-FRI SUBQ 01/06/19 21:00 02/05/19 20:59 01/22/19 21:21 Escitalopram Oxalate (Lexapro) 20 mg DAILY GT 01/05/19 09:00 02/04/19 08:59 01/25/19 09:36 Hydralazine HCl (Apresoline) 25 mg Q4H PRN GT bp over 160 syst 01/06/19 15:00 02/05/19 14:59 Ibuprofen (Advil) 400 mg TIDPRN PRN ORAL For Pain 01/18/19 11:30 02/17/19 11:29 01/25/19 15:57 Insulin Aspart (NovoLOG) EVERY 6 HOURS SUBQ 01/01/19 00:00 01/31/19 00:00 01/25/19 12:37 Lansoprazole (Prevacid) 30 mg DAILY GT 01/16/19 09:00 02/15/19 08:59 01/25/19 09:36 Loperamide HCl (Imodium) 2 mg Q6H PRN GT Diarrhea 01/07/19 11:00 02/06/19 10:59 01/16/19 04:24 Tacrolimus (Prograf) 2 mg MoWeFr@0000,1200 ORAL 12/28/18 00:00 01/27/19 00:00 01/25/19 12:36 Tacrolimus (Prograf) 2 mg SuTuThSa@0900,2100 ORAL 12/26/18 21:00 01/25/19 20:59 01/24/19 20:43 Subjective ROS Limited/Unobtainable: No Allergies: Coded Allergies: CEPHALEXIN (Unverified Allergy, Unknown, 02/24/14) SULFAMETHOXAZOLE (Unverified Allergy, Unknown, 02/24/14) TRIMETHOPRIM (Unverified Allergy, Unknown, 02/24/14) Objective Last 24 Hour Vital Signs Date Time Temp Pulse Resp B/P (MAP) Pulse Ox O2 Delivery O2 Flow Rate FiO2 01/29/19 12:45 74 22 40 01/29/19 12:00 40 01/29/19 12:00 Mechanical Ventilator 01/29/19 12:00 71 01/29/19 10:05 76 22 40 01/29/19 09:36 75 24 40 01/29/19 09:11 77 151/75 01/29/19 08:00 Mechanical Ventilator 01/29/19 08:00 40 01/29/19 08:00 76 01/29/19 07:25 75 23 40 01/29/19 05:26 71 25 40 01/29/19 04:00 40 01/29/19 04:00 Mechanical Ventilator 01/29/19 03:32 73 01/29/19 02:58 76 24 40 01/29/19 01:03 70 26 40 01/29/19 00:00 Mechanical Ventilator 01/28/19 23:31 71 01/28/19 22:58 74 23 40 01/28/19 21:26 72 22 40 01/28/19 21:00 Mechanical Ventilator 01/28/19 20:23 74 148/85 01/28/19 20:00 40 01/28/19 20:00 Mechanical Ventilator 01/28/19 20:00 97.6 74 22 148/85 (106) 100 01/28/19 19:13 75 01/28/19 18:44 75 29 40 01/28/19 17:05 87 20 40 01/28/19 16:00 Mechanical Ventilator 01/28/19 16:00 40 01/28/19 15:30 72 01/28/19 15:15 84 21 40 Intake and Output 01/28/19 01/29/19 19:00 07:00 Intake Total 540 ml 640 ml Output Total 3000 ml Balance -2460 ml 640 ml Free Water 100 ml Tube Feeding 540 ml 540 ml Other 3000 ml # Bowel Movements 2 6 Current Medications Medications (Trade) Dose Ordered Sig/Aleks Route PRN Reason Start Time Stop Time Status Last Admin Dose Admin Apixaban (Eliquis) 2.5 mg BID GT 01/01/19 21:00 01/31/19 20:59 01/29/19 09:10 Aspirin (ASA) 81 mg DAILY PEG 01/19/19 09:00 02/18/19 08:59 01/29/19 09:11 Atorvastatin Calcium (Lipitor) 10 mg BEDTIME GT 01/18/19 21:00 02/17/19 20:59 01/28/19 20:24 Carvedilol (Coreg) 3.125 mg EVERY 12 HOURS PEG 01/18/19 21:00 02/17/19 20:59 01/29/19 09:11 Clotrimazole (Lotrimin) 1 applic DAILY TOPIC 01/08/19 18:00 02/07/19 17:59 01/29/19 09:11 Dextrose (Dextrose 50%) 25 ml Q30M PRN IV Hypoglycemia 12/31/18 23:00 01/30/19 22:59 Dextrose (Dextrose 50%) 50 ml Q30M PRN IV Hypoglycemia 12/31/18 23:00 01/30/19 22:59 Docusate Sodium (Colace) 100 mg TWICE A DAY GT 01/18/19 18:00 02/17/19 17:59 01/29/19 09:10 Epoetin Vini (Epoetin Vini(ESRD on dialysis)) 10,000 unit FRI-FRI-FRI SUBQ 01/06/19 21:00 02/05/19 20:59 01/27/19 21:00 Escitalopram Oxalate (Lexapro) 20 mg DAILY GT 01/05/19 09:00 02/04/19 08:59 01/29/19 09:10 Hydralazine HCl (Apresoline) 25 mg Q4H PRN GT bp over 160 syst 01/06/19 15:00 02/05/19 14:59 Ibuprofen (Advil) 400 mg TIDPRN PRN ORAL For Pain 01/18/19 11:30 02/17/19 11:29 01/28/19 20:24 Insulin Aspart (NovoLOG) EVERY 6 HOURS SUBQ 01/01/19 00:00 01/31/19 00:00 01/29/19 11:53 Lansoprazole (Prevacid) 30 mg DAILY GT 01/16/19 09:00 02/15/19 08:59 01/29/19 09:11 Loperamide HCl (Imodium) 2 mg Q6H PRN GT Diarrhea 01/07/19 11:00 02/06/19 10:59 01/28/19 20:49 Dhruv Baca MD Jan 29, 2019 13:30
--- NOTE | 2019-01-29 14:45 | Nephrology Progress Note ---
Assessment/Plan Problem List: (1) ESRD (end stage renal disease) on dialysis (2) Foot ulcer (3) CHF (congestive heart failure) Assessment: Ej Fx 20 % (4) Pacemaker (5) Acute respiratory failure Assessment: with Co2 retention (6) G-tube site cellulitis Assessment ESRD with high K and SOB on admit Foot ulcer, likely infected High Troponin likely NSTMI Pacer , Pleural effusion s/p CABGS s/p Liver transplant Plan dialysis 3 times weekly M W Fr or extra as needed labs before HD noted BP low- improved on midodrine per consultants, GI GT site infection, topical antibiotic Neuro note appreciated placement in process vascular esteban regarding heel ulcer per Dr Mcgill pain med change to dilaudid GT Now has tracheostomy and PEG Adjust BP meds add nitro paste TID Antibiotics by ID per cardio and ID Podiatry and Vascular surgical fu ? DC planning? Subjective ROS Limited/Unobtainable: No Objective Objective Last 24 Hour Vital Signs Date Time Temp Pulse Resp B/P (MAP) Pulse Ox O2 Delivery O2 Flow Rate FiO2 01/29/19 12:45 74 22 40 01/29/19 12:00 40 01/29/19 12:00 Mechanical Ventilator 01/29/19 12:00 71 01/29/19 10:05 76 22 40 01/29/19 09:36 75 24 40 01/29/19 09:11 77 151/75 01/29/19 08:00 Mechanical Ventilator 01/29/19 08:00 40 01/29/19 08:00 76 01/29/19 07:25 75 23 40 01/29/19 05:26 71 25 40 01/29/19 04:00 40 01/29/19 04:00 Mechanical Ventilator 01/29/19 03:32 73 01/29/19 02:58 76 24 40 01/29/19 01:03 70 26 40 01/29/19 00:00 Mechanical Ventilator 01/28/19 23:31 71 01/28/19 22:58 74 23 40 01/28/19 21:26 72 22 40 01/28/19 21:00 Mechanical Ventilator 01/28/19 20:23 74 148/85 01/28/19 20:00 40 01/28/19 20:00 Mechanical Ventilator 01/28/19 20:00 97.6 74 22 148/85 (106) 100 01/28/19 19:13 75 01/28/19 18:44 75 29 40 01/28/19 17:05 87 20 40 01/28/19 16:00 Mechanical Ventilator 01/28/19 16:00 40 01/28/19 15:30 72 01/28/19 15:15 84 21 40 Intake and Output 01/28/19 01/29/19 19:00 07:00 Intake Total 540 ml 640 ml Output Total 3000 ml Balance -2460 ml 640 ml Free Water 100 ml Tube Feeding 540 ml 540 ml Other 3000 ml # Bowel Movements 2 6 Height (Feet): 5 Height (Inches): 4.00 Weight (Pounds): 207 General Appearance: no apparent distress EENT: other - vented Respiratory/Chest: decreased breath sounds Abdomen: distended Objective no other change Nakul Stevens MD Jan 29, 2019 14:45
[2019-01-29 16:00] VITALS: BP 163/95
--- NOTE | 2019-01-29 17:05 | Infectious Diseases Prog Note ---
Assessment/Plan Problems: (1) Foot ulcer Assessment & Plan: with MRSA grew out of it in the past, S/P vancomycin treatment with HD for two weeks, had vascular eval with revascularization to the right leg , S/P ulcer resection by [facility] . deep ulcer culture grew MRSA and E.coli with diphtheroids , possible colonization , with no evidence of active infection as per discussion with podiatry , no need to be started on antibiotics for now , will continue to monitor clinically and make recommendations as necessary . bone scan ruled out osteomyelitis of the heel before, couldn't do an MRI since on the vent . continue local wound care with wound VAC management as per grey percher . (2) Diarrhea Assessment & Plan: improved, with no infectious etiology so far , and negative stool for C diff toxin , and no pathogens on stool culture , use laxatives as needed , monitor clinically , encourage hydration (3) Thrush, oral Assessment & Plan: resolved with local nystatin as needed , S/P micafungin for three weeks empirically (4) HCV antibody positive Assessment & Plan: no evidence of active infection, with undetectable viral load , suspect due to previous infection , cleared, S/P liver transplant . (5) DM (diabetes mellitus) Assessment & Plan: recommend tight glycemic control to keep blood glucose between 100-140 (6) CHF (congestive heart failure) Assessment & Plan: on HD , renal is following, monitor daily weight , S/P multiple thoracentesis (7) Severe tongue swelling Assessment & Plan: improving , s/p tracheostomy to protect his airway since respiratory status worsened . now improving, pulmonary is following (8) Pleural effusion Assessment & Plan: recurrent on the right, with lung collapse , S/P thoracentesis X 3 now with removal of 2.3 liters of clear fluids on 12/31/18 . await fluids culture and gram stain, with PH and Glucose level . PREVIOUS culture were negative with negative cytology. pulmonary is following (9) Ascites Assessment & Plan: S/P paracentesis with removal of 4.1 liters of fluids, culture so far is negative Assessment/Plan will continue to monitor patient on daily basis and make recommendations as necessary since he is high risk for recurrent infection Subjective Constitutional: Reports: no symptoms HEENT: Reports: no symptoms Respiratory: Reports: no symptoms Breasts: Reports: no symptoms Cardiovascular: Reports: no symptoms Gastrointestinal/Abdominal: Reports: no symptoms Genitourinary: Reports: no symptoms Neurologic: Reports: no symptoms Psychiatric: Reports: no symptoms Skin: Reports: no symptoms Endocrine: Reports: no symptoms Hematologic: Reports: no symptoms Musculoskeletal: Reports: no symptoms Allergies: Coded Allergies: CEPHALEXIN (Unverified Allergy, Unknown, 02/24/14) SULFAMETHOXAZOLE (Unverified Allergy, Unknown, 02/24/14) TRIMETHOPRIM (Unverified Allergy, Unknown, 02/24/14) Subjective he was comfortable, lying in bed, awake and responsive, no fever or chills, no significant secretions from the trach , no SOB . has left heel with wound VAC in place, but no draining coming out . no diarrhea . Objective Vital Signs Last 24 Hour Vital Signs Date Time Temp Pulse Resp B/P (MAP) Pulse Ox O2 Delivery O2 Flow Rate FiO2 01/29/19 16:00 98.9 74 26 163/95 (117) 99 01/29/19 16:00 72 01/29/19 16:00 Mechanical Ventilator 01/29/19 16:00 40 01/29/19 14:37 72 20 40 01/29/19 12:45 74 22 40 01/29/19 12:00 97.7 71 24 159/70 (99) 99 01/29/19 12:00 40 01/29/19 12:00 Mechanical Ventilator 01/29/19 12:00 71 01/29/19 10:05 76 22 40 01/29/19 09:36 75 24 40 01/29/19 09:11 77 151/75 01/29/19 08:00 Mechanical Ventilator 01/29/19 08:00 40 01/29/19 08:00 76 01/29/19 08:00 98.5 77 24 151/75 (100) 99 01/29/19 07:25 75 23 40 01/29/19 05:26 71 25 40 01/29/19 04:00 40 01/29/19 04:00 Mechanical Ventilator 01/29/19 03:32 73 01/29/19 02:58 76 24 40 01/29/19 01:03 70 26 40 01/29/19 00:00 Mechanical Ventilator 01/28/19 23:31 71 01/28/19 22:58 74 23 40 01/28/19 21:26 72 22 40 01/28/19 21:00 Mechanical Ventilator 01/28/19 20:23 74 148/85 01/28/19 20:00 40 01/28/19 20:00 Mechanical Ventilator 01/28/19 20:00 97.6 74 22 148/85 (106) 100 01/28/19 19:13 75 01/28/19 18:44 75 29 40 01/28/19 17:05 87 20 40 Height (Feet): 5 Height (Inches): 4.00 Weight (Pounds): 207 General Appearance: WD/WN, no acute distress HEENT: normocephalic, atraumatic, anicteric, mucous membranes moist, PERRL, EOMI, pharynx normal, supple, no JVD Respiratory/Chest: chest wall non-tender, no respiratory distress, no accessory muscle use, decreased breath sounds, crackles/rales Cardiovascular: normal peripheral pulses, normal rate, regular rhythm, no gallop/murmur, no JVD Abdomen: normal bowel sounds, soft, non tender, no organomegaly, non distended , no mass, no scars Extremities: no cyanosis, no clubbing Skin: no rash, no lesions, no ulcers 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: alert, responsive Lymphatic: no neck adenopathy, no groin adenopathy Musculoskeletal: normal muscle bulk, no effusion Current Medications Medications (Trade) Dose Ordered Sig/Aleks Route PRN Reason Start Time Stop Time Status Last Admin Dose Admin Apixaban (Eliquis) 2.5 mg BID GT 01/01/19 21:00 01/31/19 20:59 01/29/19 09:10 Aspirin (ASA) 81 mg DAILY PEG 01/19/19 09:00 02/18/19 08:59 01/29/19 09:11 Atorvastatin Calcium (Lipitor) 10 mg BEDTIME GT 01/18/19 21:00 02/17/19 20:59 01/28/19 20:24 Carvedilol (Coreg) 3.125 mg EVERY 12 HOURS PEG 01/18/19 21:00 02/17/19 20:59 01/29/19 09:11 Clotrimazole (Lotrimin) 1 applic DAILY TOPIC 01/08/19 18:00 02/07/19 17:59 01/29/19 09:11 Dextrose (Dextrose 50%) 25 ml Q30M PRN IV Hypoglycemia 12/31/18 23:00 01/30/19 22:59 Dextrose (Dextrose 50%) 50 ml Q30M PRN IV Hypoglycemia 12/31/18 23:00 01/30/19 22:59 Docusate Sodium (Colace) 100 mg TWICE A DAY GT 01/18/19 18:00 02/17/19 17:59 01/29/19 09:10 Epoetin Vini (Epoetin Vini(ESRD on dialysis)) 10,000 unit SUBQ 01/06/19 21:00 02/05/19 20:59 01/27/19 21:00 Escitalopram Oxalate (Lexapro) 20 mg DAILY GT 01/05/19 09:00 02/04/19 08:59 01/29/19 09:10 Hydralazine HCl (Apresoline) 25 mg Q4H PRN GT bp over 160 syst 01/06/19 15:00 02/05/19 14:59 Ibuprofen (Advil) 400 mg TIDPRN PRN ORAL For Pain 01/18/19 11:30 02/17/19 11:29 01/28/19 20:24 Insulin Aspart (NovoLOG) EVERY 6 HOURS SUBQ 01/01/19 00:00 01/31/19 00:00 01/29/19 11:53 Lansoprazole (Prevacid) 30 mg DAILY GT 01/16/19 09:00 02/15/19 08:59 01/29/19 09:11 Loperamide HCl (Imodium) 2 mg Q6H PRN GT Diarrhea 01/07/19 11:00 02/06/19 10:59 01/28/19 20:49 Francois Landis M.D. Jan 29, 2019 17:05
[2019-01-29] MEDS: Epoetin Alfa-EPBX(ESRD on dialysis)10,000 unit/ml vial SUBQ SCH (20:58)
[2019-01-29 23:58] VITALS: BP 148/76
--- NOTE | 2019-01-30 00:15 | Progress Note ---
DATE: 01/29/2019 SUBJECTIVE: The patient is the same. Doing well. Overall improving. Continues to be depressed and anxious. Sleep is better. MENTAL STATUS EXAMINATION: The patient is alert and oriented times self, place, and situation. Mood is depressed. Affect is constricted with congruent mood. Thought process is linear. Thought content, no suicidal or homicidal ideations. ASSESSMENT: Stable. PLAN: We will continue current medications. We will provide the patient with reality orientation and supportive therapy. Jeffrey Lala M.D. DR: LAINE JOB#: [id number] CC:
[2019-01-30 05:32] LABS: HEMATOCRIT 26.5 % (42.0-52.0); HEMOGLOBIN 8.6 G/DL (14.2-18.0); LYMPHOCYTES % (AUTO) 17.9 % (20.0-45.0); MEAN CORPUSCULAR VOLUME 77 FL (80-99); MONOCYTES % (AUTO) 8.8 % (1.0-10.0); NEUTROPHILS % (AUTO) 72.3 % (45.0-75.0); PLATELET COUNT 229 K/UL (150-450); RED BLOOD COUNT 3.45 M/UL (4.70-6.10); RED CELL DISTRIBUTION WIDTH 16.5 % (11.6-14.8); WHITE BLOOD COUNT 5.9 K/UL (4.8-10.8)
[2019-01-30] MEDS: NovoLOG Insulin Flexpen SUBQ SCH ×3 (06:10→17:18)
[2019-01-30 06:16] LABS: ALANINE AMINOTRANSFERASE 13 U/L (12-78); ALBUMIN/GLOBULIN RATIO 0.4 (1.0-2.7); ALKALINE PHOSPHATASE 131 U/L (46-116); ANION GAP 15 mmol/L (5-15); ASPARTATE AMINO TRANSFERASE 13 U/L (15-37); BILIRUBIN,TOTAL 0.4 MG/DL (0.2-1.0); BLOOD UREA NITROGEN 109 mg/dL (7-18); CALCIUM 9.2 MG/DL (8.5-10.1); CARBON DIOXIDE 26 MMOL/L (21-32); CHLORIDE 91 MMOL/L (98-107); POTASSIUM 3.9 MMOL/L (3.5-5.1); SODIUM 132 MMOL/L (136-145)
[2019-01-30 08:00] VITALS: BP 121/63
--- NOTE | 2019-01-30 08:09 | Hematology/Onc Progress Note ---
Assessment/Plan Assessment/Plan Assessment and Recs: # Anemia of chronic disease due to underlying chronic medical issues, range has been 8-11, ferritin is 633, tibc is low. --> No evidence of hemolysis is noted, peripheral smear has been reviewed. --> Epogen with HD 3x/wk --> Medications have been reviewed --> evaluate with Gi team prn --> transfuse if hgb is < 7 (will trend CBC daily) --> hgb trend 11.2-->10.9-->10.8-->10.7-->10.2-->9.7-->9.7-->8.5-->9-->9.2-->8.4 -->7.7-->8.8-->9.1-->8.6-->8.3-->8.9--> 8.6 --> s/p transfusion on 01/06 # Failure to thrive is likely related to poor overall status, poor functional status --> GT++ as per gi --> with multiple decub ulcerations that are noted, seen by id/surgery --> s/p trach as well --> cea is wnl # Acute non-occlusive dvt, right extremity ultrasound (acute non-occlusive DVT in internal jugular) --> currently is on eliquis 2.5mg po bid --> do not recommend a SVC filter --> given prior bleeding risk, hold off on heparin gtt --> vasc surgeon is aware, seek recs # Coagulopathy likely secondary to decreased Vitk dependent cofactors (high INR , PT) --> monitor closely for any evidence of bleeding. Currently is on eliquis --> VIT K on prn basis sq can be administered --> recently has improved inr 1.2-->1.1-->1.2-->1.1-->1.1 # Acute respiratory failure is now s/p trach to vent --> as per surgery recs # Ground glass opacities present on imaging of lung --> with pleural effusions, s/p drainage at this time --> no evidence for malignancy is noted --> as per pulm/id # Pleural effusion --> s/p thoracentesis, s/p paracentesis 12/31 --> no evidence of malignancy -->01/14 cxr: Interstitial edema, small left pleural effusion # Hyperkalemia --> kayxelate on prn basis per renal --> monitor K+ # Renal failure --> per renal recs, appreciated --> getting hd as per schedule 3x week # Altered level of consciousness --> currently as per baseline --> neuro eval prn # PAD off heparin gtt and now on eliquis --> per vasc and cards --> 12/22 s/p right leg angiogram with intervention --> on eliquis, continue # Gt tube cellulitis, on topical abx as per id around site The timing of this note does not necessarily reflect the time of the patient was seen. Greatly appreciate consultation!. Subjective Allergies: Coded Allergies: CEPHALEXIN (Unverified Allergy, Unknown, 02/24/14) SULFAMETHOXAZOLE (Unverified Allergy, Unknown, 02/24/14) TRIMETHOPRIM (Unverified Allergy, Unknown, 02/24/14) Subjective Subjective Subjective Allergies: Coded Allergies: CEPHALEXIN (Unverified Allergy, Unknown, 02/24/14) SULFAMETHOXAZOLE (Unverified Allergy, Unknown, 02/24/14) TRIMETHOPRIM (Unverified Allergy, Unknown, 02/24/14) Subjective 11/30: comfortable, on abx, no complaints, on t-piece 12/01: to have hd done potentially tomorrow, is more alert/awake 12/02: no major bleeding, hgb remains approx 11, no changes 12/03: no events, breathing mildly better, hgb is improved 12/04: on vent/trach, no major changes, sr ekg 12/10: small amount of secretions, on trach/vent, no issues otherwise 12/11: no major issues, no complaints, labs reviewed, no sig changes 12/13: no events to report, no fevers or chills, awaiting placement 12/14: no changes, no major events to report, no fevers or chills 12/15: pending placement, getting gt feeds and hd as per renal 12/16: labs have been reviewed, cbc noted, no changes 12/17: no events, no fevers, no cp, hgb remains stable 12/18: restarted on heparin gtt, seen by latia, clarisa 12/20: continues to be on heparin gtt, no bleeding reported, no f/c 12/21: hd for today, no fevers or chils, off hep gtt on eliquis 12/22: to get hd tomorrow, today is s/p right leg angiogram with intervention 12/23: hgb remins stable, no fevers or chills reported 12/24: no events, no bleeding, vitals reviewed, cbc stable 12/25: no events, no bleeding, on vent, hgb 9 12/27: no changes, no f/c, no night swearts, seen with other providers 12/28: right extremity ultrasound (acute non-occlusive DVT in internal jugular, on eliquis 12/29: no events, no night sweats, seen by gi, no bleeding 12/30: cbc has been reviewed, no f/c, no night sweats reported 12/31: no events, eliquis is on hold cbc has been reviewed, bp elevated 01/01: no fevers or chills, cbc reviewed, hgb 9.3, getting HD 01/02: no events noted, getting norco for pain, hgb stable 01/04: not events to report, no bleeding, refusing ivl at this time, cbc reviewed 01/05: no fevers or chills noted, s/p trach/vent, no f/c, no chills noted 01/06: no events, to get 1 unit prbc today, renal seen, on abx 01/07: hd for tomorrow, seen by renal, no events, cbc reviewed 01/08: getting Hd today, seen by renal, no major events, in sr 01/10: no events to report, to get hd tomorrow, hgb stable 01/11: on vent/trach, gtube, tolerating treatment well, hd today 01/12: remains nonverbal, stable, on vent/trach, no fc 01/13: no events noted, cbc has been reviewed 01/14: thora and para fluid still neg for malignancy, no bleeding 01/15: Pt examined at bedside. No acute events. Pt refusing IV access per nursing per nursing team. 01/17: Pt is awake and alert. Pt in stable condition. Hgb trending down: 8.3 will continue to monitor 01/18: Pt complain of abdominal pain and DIAZ. Hgb trend 8.3-->8.9 01/19: no events, cbc has been reviewed, hgb is stable today 01/20: Awake and alert, able to follow commands. Remains on vent. 01/21: Patient awake in bed. Trach to vent. Pt refused am lab draw. 01/22: no events, dc planning 01/23: no events, dc planning, on epogen and eliquis 01/26: no events, no f/c, tolerating trach well, hD prn 01/27: Patient is awake and oriented x4 no signs of distress 01/28: No acute distress, Pt resting in bed 01/29: no overnight events 01/30: pt agreed to labs this am, reviewed, no acute distress noted. Objective Objective Current Medications Medications (Trade) Dose Ordered Sig/Aleks Route PRN Reason Start Time Stop Time Status Last Admin Dose Admin Apixaban (Eliquis) 2.5 mg BID GT 01/01/19 21:00 01/31/19 20:59 01/29/19 17:34 Aspirin (ASA) 81 mg DAILY PEG 01/19/19 09:00 02/18/19 08:59 01/29/19 09:11 Atorvastatin Calcium (Lipitor) 10 mg BEDTIME GT 01/18/19 21:00 02/17/19 20:59 01/29/19 20:59 Carvedilol (Coreg) 3.125 mg EVERY 12 HOURS PEG 01/18/19 21:00 02/17/19 20:59 01/29/19 20:58 Clotrimazole (Lotrimin) 1 applic DAILY TOPIC 01/08/19 18:00 02/07/19 17:59 01/29/19 09:11 Dextrose (Dextrose 50%) 25 ml Q30M PRN IV Hypoglycemia 12/31/18 23:00 01/30/19 22:59 Dextrose (Dextrose 50%) 50 ml Q30M PRN IV Hypoglycemia 12/31/18 23:00 01/30/19 22:59 Docusate Sodium (Colace) 100 mg TWICE A DAY GT 01/18/19 18:00 02/17/19 17:59 01/29/19 17:34 Epoetin Vini (Epoetin Vini(ESRD on dialysis)) 10,000 unit FRI- SUBQ 01/06/19 21:00 02/05/19 20:59 01/29/19 20:58 Escitalopram Oxalate (Lexapro) 20 mg DAILY GT 01/05/19 09:00 02/04/19 08:59 01/29/19 09:10 Hydralazine HCl (Apresoline) 25 mg Q4H PRN GT bp over 160 syst 01/06/19 15:00 02/05/19 14:59 Ibuprofen (Advil) 400 mg TIDPRN PRN ORAL For Pain 01/18/19 11:30 02/17/19 11:29 01/29/19 21:00 Insulin Aspart (NovoLOG) EVERY 6 HOURS SUBQ 01/01/19 00:00 01/31/19 00:00 01/30/19 06:10 Lansoprazole (Prevacid) 30 mg DAILY GT 01/16/19 09:00 02/15/19 08:59 01/29/19 09:11 Loperamide HCl (Imodium) 2 mg Q6H PRN GT Diarrhea 01/07/19 11:00 02/06/19 10:59 01/28/19 20:49 Last 24 Hour Vital Signs Date Time Temp Pulse Resp B/P (MAP) Pulse Ox O2 Delivery O2 Flow Rate FiO2 01/30/19 07:28 70 18 40 01/30/19 04:57 71 23 40 01/30/19 04:00 71 01/30/19 04:00 Mechanical Ventilator 01/30/19 04:00 40 01/30/19 03:12 65 25 40 01/30/19 01:14 78 24 40 01/30/19 00:00 Mechanical Ventilator 01/30/19 00:00 40 01/29/19 23:58 97.8 69 24 148/76 (100) 100 01/29/19 23:09 75 24 40 01/29/19 21:29 72 24 40 01/29/19 20:58 73 135/55 01/29/19 20:00 72 01/29/19 20:00 40 01/29/19 20:00 Mechanical Ventilator 01/29/19 18:47 74 25 40 01/29/19 17:09 73 24 40 01/29/19 16:00 98.9 74 26 163/95 (117) 99 01/29/19 16:00 72 01/29/19 16:00 Mechanical Ventilator 01/29/19 16:00 40 01/29/19 14:37 72 20 40 01/29/19 12:45 74 22 40 01/29/19 12:00 97.7 71 24 159/70 (99) 99 01/29/19 12:00 40 01/29/19 12:00 Mechanical Ventilator 01/29/19 12:00 71 01/29/19 10:05 76 22 40 01/29/19 09:36 75 24 40 01/29/19 09:11 77 151/75 01/29/19 08:00 Mechanical Ventilator 01/29/19 08:00 40 01/29/19 08:00 76 01/29/19 08:00 98.5 77 24 151/75 (100) 99 01/29/19 07:25 75 23 40 01/29/19 05:26 71 25 40 01/29/19 04:00 40 01/29/19 04:00 Mechanical Ventilator 01/29/19 03:32 73 01/29/19 02:58 76 24 40 01/29/19 01:03 70 26 40 01/29/19 00:00 Mechanical Ventilator 01/28/19 23:31 71 01/28/19 22:58 74 23 40 01/28/19 21:26 72 22 40 01/28/19 21:00 Mechanical Ventilator 01/28/19 20:23 74 148/85 01/28/19 20:00 40 01/28/19 20:00 Mechanical Ventilator 01/28/19 20:00 97.6 74 22 148/85 (106) 100 01/28/19 19:13 75 01/28/19 18:44 75 29 40 01/28/19 17:05 87 20 40 01/28/19 16:00 Mechanical Ventilator 01/28/19 16:00 40 01/28/19 15:30 72 01/28/19 15:15 84 21 40 01/28/19 13:10 81 21 40 01/28/19 12:00 Mechanical Ventilator 01/28/19 12:00 40 01/28/19 11:40 71 01/28/19 11:15 79 22 40 01/28/19 11:13 97 01/28/19 09:29 68 146/74 01/28/19 08:46 77 23 40 Intake and Output 01/29/19 01/30/19 19:00 07:00 Intake Total 455 ml 145 ml Balance 455 ml 145 ml Free Water 50 ml 100 ml Tube Feeding 405 ml 45 ml # Bowel Movements 2 4 Labs Test 01/30/19 04:49 White Blood Count 5.9 K/UL (4.8-10.8) Red Blood Count 3.45 M/UL (4.70-6.10) Hemoglobin 8.6 G/DL (14.2-18.0) Hematocrit 26.5 % (42.0-52.0) Mean Corpuscular Volume 77 FL (80-99) Mean Corpuscular Hemoglobin 25.0 PG (27.0-31.0) Mean Corpuscular Hemoglobin Concent 32.6 G/DL (32.0-36.0) Red Cell Distribution Width 16.5 % (11.6-14.8) Platelet Count 229 K/UL (150-450) Mean Platelet Volume 6.0 FL (6.5-10.1) Neutrophils (%) (Auto) 72.3 % (45.0-75.0) Lymphocytes (%) (Auto) 17.9 % (20.0-45.0) Monocytes (%) (Auto) 8.8 % (1.0-10.0) Eosinophils (%) (Auto) 0.0 % (0.0-3.0) Basophils (%) (Auto) 1.0 % (0.0-2.0) Sodium Level 132 MMOL/L (136-145) Potassium Level 3.9 MMOL/L (3.5-5.1) Chloride Level 91 MMOL/L (98-107) Carbon Dioxide Level 26 MMOL/L (21-32) Anion Gap 15 mmol/L (5-15) Blood Urea Nitrogen 109 mg/dL (7-18) Creatinine 7.0 MG/DL (0.55-1.30) Estimat Glomerular Filtration Rate 7.9 mL/min (>60) Glucose Level 175 MG/DL (74-106) Calcium Level 9.2 MG/DL (8.5-10.1) Total Bilirubin 0.4 MG/DL (0.2-1.0) Aspartate Amino Transf (AST/SGOT) 13 U/L (15-37) Alanine Aminotransferase (ALT/SGPT) 13 U/L (12-78) Alkaline Phosphatase 131 U/L (46-116) Total Protein 6.7 G/DL (6.4-8.2) Albumin 2.0 G/DL (3.4-5.0) Globulin 4.7 g/dL Albumin/Globulin Ratio 0.4 (1.0-2.7) Height (Feet): 5 Height (Inches): 4.00 Weight (Pounds): 207 Objective PE General Appearance: No acute distress. Lines, tubes and drains: peripheral HEENT: EOMI, ++ thrush, tonsils swollen ++trach on vent Neck: normal inspection Respiratory/Chest: decreased breath sounds, accessory muscle use. VENT++ Cardiovascular/Chest: tachycardia Abdomen: soft, no organomegaly, no mass, ++ peg Extremities: other Skin Exam: warm/dry, rash Neurologic: alert, responsive Whitney Young NP Jan 30, 2019 08:09
[2019-01-30] MEDS: Eliquis 2.5mg tablet GT SCH ×2 (08:54→17:14)
[2019-01-30] MEDS: Docusate 100mg/10ml Liq GT SCH ×2 (08:55→17:14)
[2019-01-30] MEDS: Aspirin Baby 81mg PEG SCH (09:00)
--- NOTE | 2019-01-30 11:31 | Nephrology Progress Note ---
Assessment/Plan Problem List: (1) ESRD (end stage renal disease) on dialysis (2) Foot ulcer (3) CHF (congestive heart failure) Assessment: Ej Fx 20 % (4) Pacemaker (5) Acute respiratory failure Assessment: with Co2 retention (6) G-tube site cellulitis Assessment ESRD with high K and SOB on admit Foot ulcer, likely infected High Troponin likely NSTMI Pacer , Pleural effusion s/p CABGS s/p Liver transplant Plan dialysis 3 times weekly M W Fr or extra as needed labs before HD noted BP low- improved on midodrine per consultants, GI GT site infection, topical antibiotic Neuro note appreciated placement in process vascular esteban regarding heel ulcer per Dr Mcgill pain med change to dilaudid GT Now has tracheostomy and PEG Adjust BP meds add nitro paste TID Antibiotics by ID per cardio and ID Podiatry and Vascular surgical fu ? DC planning? Subjective ROS Limited/Unobtainable: No Constitutional: Reports: malaise Objective Objective Last 24 Hour Vital Signs Date Time Temp Pulse Resp B/P (MAP) Pulse Ox O2 Delivery O2 Flow Rate FiO2 01/30/19 11:12 68 20 40 01/30/19 09:01 74 22 40 01/30/19 09:00 74 148/76 01/30/19 08:04 72 01/30/19 08:00 40 01/30/19 08:00 Mechanical Ventilator 01/30/19 07:28 70 18 40 01/30/19 04:57 71 23 40 01/30/19 04:00 71 01/30/19 04:00 Mechanical Ventilator 01/30/19 04:00 40 01/30/19 03:12 65 25 40 01/30/19 01:14 78 24 40 01/30/19 00:00 Mechanical Ventilator 01/30/19 00:00 40 01/29/19 23:58 97.8 69 24 148/76 (100) 100 01/29/19 23:09 75 24 40 01/29/19 21:29 72 24 40 01/29/19 20:58 73 135/55 01/29/19 20:00 72 01/29/19 20:00 40 01/29/19 20:00 Mechanical Ventilator 01/29/19 18:47 74 25 40 01/29/19 17:09 73 24 40 01/29/19 16:00 98.9 74 26 163/95 (117) 99 01/29/19 16:00 72 01/29/19 16:00 Mechanical Ventilator 01/29/19 16:00 40 01/29/19 14:37 72 20 40 01/29/19 12:45 74 22 40 01/29/19 12:00 97.7 71 24 159/70 (99) 99 01/29/19 12:00 40 01/29/19 12:00 Mechanical Ventilator 01/29/19 12:00 71 Intake and Output 01/29/19 01/30/19 19:00 07:00 Intake Total 455 ml 145 ml Balance 455 ml 145 ml Free Water 50 ml 100 ml Tube Feeding 405 ml 45 ml # Bowel Movements 2 4 Laboratory Tests 01/30/19 04:49: White Blood Count 5.9, Red Blood Count 3.45L, Hemoglobin 8.6L, Hematocrit 26.5L , Mean Corpuscular Volume 77L, Mean Corpuscular Hemoglobin 25.0L, Mean Corpuscular Hemoglobin Concent 32.6, Red Cell Distribution Width 16.5H, Platelet Count 229, Mean Platelet Volume 6.0L, Neutrophils (%) (Auto) 72.3, Lymphocytes (%) (Auto) 17.9L, Monocytes (%) (Auto) 8.8, Eosinophils (%) (Auto) 0.0, Basophils (%) (Auto) 1.0, Sodium Level 132L, Potassium Level 3.9, Chloride Level 91L, Carbon Dioxide Level 26, Anion Gap 15, Blood Urea Nitrogen 109H, Creatinine 7.0H, Estimat Glomerular Filtration Rate 7.9, Glucose Level 175H, Calcium Level 9.2, Total Bilirubin 0.4, Aspartate Amino Transf (AST/SGOT) 13L, Alanine Aminotransferase (ALT/SGPT) 13, Alkaline Phosphatase 131H, Total Protein 6.7, Albumin 2.0L, Globulin 4.7, Albumin/Globulin Ratio 0.4L Height (Feet): 5 Height (Inches): 4.00 Weight (Pounds): 207 General Appearance: no apparent distress EENT: other - trach Respiratory/Chest: decreased breath sounds Abdomen: distended, other - PEG Objective no other change Nakul Stevens MD Jan 30, 2019 11:31
[2019-01-30 12:00] VITALS: BP 97/73
--- NOTE | 2019-01-30 13:45 | General Progress Note ---
Assessment/Plan Assessment/Plan: Status: stable Assessment/Plan: #Right heel diabetic foot ulcer without osteomyelitis #PAD #Right IJ DVT -seen by Podiatry and ID -s/p Vanco x 2 weeks during HD and now OFF. Bone scan was negative for osteomyelitis and MRI not possible due to intubation. -continue Eliquis therapy -Vascular Surgery and Hematology following #Acute Resp hypercapnic failure s/p tracheostomy - ventilator weaning per pulmonary #Angioedema #Large right pleural effusion # R side trapped lung -continue trach care -Remains vent-dependant, breathing trials ongoing -Right thoracentesis 01/01/19 with 2.3 lt removed. Post procedure CXR with R trapped lung. -Vent weaning per pulmonary - unable to wean off yet. #End-stage renal disease, on dialysis -- #RUE edema #Anasarca, ascites, scrotal edema, pleural effusion due to hypoalbuminemia -HD with UF per Nephrology -s/p PRBC transfusion during HD - PRBC as needed if Hb < 7 #Coronary artery disease # s/p PPM # HTN -continue ASA, Coreg, atorvastatin -cardiology following #Type 2 DM -ISS #Acute metabolic encephalopathy -continue supportive care -Neurology following #history of chronic HCV infection #history of liver transplant -continue Prograf -GI following #Abdominal distension and ascites s/p therapeutic paracentesis -no nausea, vomiting or tenderness -continue supportive care -GI following -s/p paracentesis 12/31/18 4.1 lt #Dysphagia S/p PEG with PEG site cellulitis -s/p antibiotics per ID and GI -continue local wound care -tolerating tube feeds #Disposition -Pending SNF placement # FULL CODE Subjective ROS Limited/Unobtainable: Yes Cardiovascular: Reports: no symptoms Respiratory: Reports: no symptoms Allergies: Coded Allergies: CEPHALEXIN (Unverified Allergy, Unknown, 02/24/14) SULFAMETHOXAZOLE (Unverified Allergy, Unknown, 02/24/14) TRIMETHOPRIM (Unverified Allergy, Unknown, 02/24/14) Subjective 11 1patient is s/p tracheostomy and PEG. 01/01 thoracentesis L side 2.3 lt 12/31 paracenthesis 4.1 lt 12/30 last weaning trial Objective Last 24 Hour Vital Signs Date Time Temp Pulse Resp B/P (MAP) Pulse Ox O2 Delivery O2 Flow Rate FiO2 01/30/19 12:00 69 01/30/19 12:00 40 01/30/19 12:00 Mechanical Ventilator 01/30/19 12:00 97.0 68 26 97/73 (81) 100 01/30/19 11:36 97 01/30/19 11:12 68 20 40 01/30/19 09:01 74 22 40 01/30/19 09:00 74 148/76 01/30/19 08:04 72 01/30/19 08:00 40 01/30/19 08:00 Mechanical Ventilator 01/30/19 08:00 97.0 71 26 121/63 (82) 100 01/30/19 07:28 70 18 40 01/30/19 04:57 71 23 40 01/30/19 04:00 71 01/30/19 04:00 Mechanical Ventilator 01/30/19 04:00 40 01/30/19 03:12 65 25 40 01/30/19 01:14 78 24 40 01/30/19 00:00 Mechanical Ventilator 01/30/19 00:00 40 01/29/19 23:58 97.8 69 24 148/76 (100) 100 01/29/19 23:09 75 24 40 01/29/19 21:29 72 24 40 01/29/19 20:58 73 135/55 01/29/19 20:00 72 01/29/19 20:00 40 01/29/19 20:00 Mechanical Ventilator 01/29/19 18:47 74 25 40 01/29/19 17:09 73 24 40 01/29/19 16:00 98.9 74 26 163/95 (117) 99 01/29/19 16:00 72 01/29/19 16:00 Mechanical Ventilator 01/29/19 16:00 40 01/29/19 14:37 72 20 40 Intake and Output 01/29/19 01/30/19 19:00 07:00 Intake Total 455 ml 145 ml Balance 455 ml 145 ml Free Water 50 ml 100 ml Tube Feeding 405 ml 45 ml # Bowel Movements 2 4 Laboratory Tests 01/30/19 04:49: White Blood Count 5.9, Red Blood Count 3.45L, Hemoglobin 8.6L, Hematocrit 26.5L , Mean Corpuscular Volume 77L, Mean Corpuscular Hemoglobin 25.0L, Mean Corpuscular Hemoglobin Concent 32.6, Red Cell Distribution Width 16.5H, Platelet Count 229, Mean Platelet Volume 6.0L, Neutrophils (%) (Auto) 72.3, Lymphocytes (%) (Auto) 17.9L, Monocytes (%) (Auto) 8.8, Eosinophils (%) (Auto) 0.0, Basophils (%) (Auto) 1.0, Sodium Level 132L, Potassium Level 3.9, Chloride Level 91L, Carbon Dioxide Level 26, Anion Gap 15, Blood Urea Nitrogen 109H, Creatinine 7.0H, Estimat Glomerular Filtration Rate 7.9, Glucose Level 175H, Calcium Level 9.2, Total Bilirubin 0.4, Aspartate Amino Transf (AST/SGOT) 13L, Alanine Aminotransferase (ALT/SGPT) 13, Alkaline Phosphatase 131H, Total Protein 6.7, Albumin 2.0L, Globulin 4.7, Albumin/Globulin Ratio 0.4L Height (Feet): 5 Height (Inches): 4.00 Weight (Pounds): 207 General Appearance: no apparent distress EENT: PERRL/EOMI Neck: non-tender Cardiovascular: normal peripheral pulses Respiratory/Chest: chest wall non-tender, lungs clear Abdomen: normal bowel sounds Edema: mild edema Neurologic: segregator 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 normal Skin: jaundice, palled Sukhdeep Galvan MD Jan 30, 2019 13:45
--- NOTE | 2019-01-30 19:02 | Cardiac Electrophysiology PN ---
Assessment/Plan Assessment/Plan 1. Troponin leak due to renal failure. No CP or SOB. Nl EF 2. Hx of CABG. On Coreg, aspirin and Lipitor 3. NSVT in setting of old SC and CABG. EF 55%. Continue Coreg. No Syncope 4. CHF and right pleural effusion. On hemodialysis. S/P Thoracentesis 5. S/P Right sided [employer] DDD pacemaker with Nl Fx. Mostly V paced 6. End-stage renal disease, on hemodialysis MWF per Dr. Stevens Dialysed yesterday and today also as had refused Friday 7. Multilevel AOD LE's with non-healing Right foot ulcer. Had abdominal angiogram per Dr Salmeron Antibiotic per Dr. Landis. FU by Dr. Huizar S/P peripheral intervention by Dr. Salmeron 12/22/18 8. History of liver transplant on Prograf 9. Respiratory failure, S/P tracheostomy. 10. Pleural effusion. s/p thoracentesis 01/01/19 11. Dysphagia, S/P PEG DW RN Subjective Subjective Alert in NAD. No CP or SOB. Had HD today Objective Last 24 Hour Vital Signs Date Time Temp Pulse Resp B/P (MAP) Pulse Ox O2 Delivery O2 Flow Rate FiO2 01/30/19 17:17 78 22 40 01/30/19 16:00 40 01/30/19 16:00 69 01/30/19 16:00 Mechanical Ventilator 01/30/19 15:15 68 18 40 01/30/19 13:00 72 22 40 01/30/19 12:00 69 01/30/19 12:00 40 01/30/19 12:00 Mechanical Ventilator 01/30/19 12:00 97.0 68 26 97/73 (81) 100 01/30/19 11:36 97 01/30/19 11:12 68 20 40 01/30/19 09:01 74 22 40 01/30/19 09:00 74 148/76 01/30/19 08:04 72 01/30/19 08:00 40 01/30/19 08:00 Mechanical Ventilator 01/30/19 08:00 97.0 71 26 121/63 (82) 100 01/30/19 07:28 70 18 40 01/30/19 04:57 71 23 40 01/30/19 04:00 71 6/15/19 04:00 Mechanical Ventilator 01/30/19 04:00 40 01/30/19 03:12 65 25 40 01/30/19 01:14 78 24 40 01/30/19 00:00 Mechanical Ventilator 01/30/19 00:00 40 01/29/19 23:58 97.8 69 24 148/76 (100) 100 01/29/19 23:09 75 24 40 01/29/19 21:29 72 24 40 01/29/19 20:58 73 135/55 01/29/19 20:00 72 01/29/19 20:00 40 01/29/19 20:00 Mechanical Ventilator Intake and Output 01/29/19 01/30/19 19:00 07:00 Intake Total 455 ml 145 ml Balance 455 ml 145 ml Free Water 50 ml 100 ml Tube Feeding 405 ml 45 ml # Bowel Movements 2 4 Laboratory Tests Test 01/30/19 04:49 White Blood Count 5.9 K/UL (4.8-10.8) Red Blood Count 3.45 M/UL (4.70-6.10) L Hemoglobin 8.6 G/DL (14.2-18.0) L Hematocrit 26.5 % (42.0-52.0) L Mean Corpuscular Volume 77 FL (80-99) L Mean Corpuscular Hemoglobin 25.0 PG (27.0-31.0) L Mean Corpuscular Hemoglobin Concent 32.6 G/DL (32.0-36.0) Red Cell Distribution Width 16.5 % (11.6-14.8) H Platelet Count 229 K/UL (150-450) Mean Platelet Volume 6.0 FL (6.5-10.1) L Neutrophils (%) (Auto) 72.3 % (45.0-75.0) Lymphocytes (%) (Auto) 17.9 % (20.0-45.0) L Monocytes (%) (Auto) 8.8 % (1.0-10.0) Eosinophils (%) (Auto) 0.0 % (0.0-3.0) Basophils (%) (Auto) 1.0 % (0.0-2.0) Sodium Level 132 MMOL/L (136-145) L Potassium Level 3.9 MMOL/L (3.5-5.1) Chloride Level 91 MMOL/L (98-107) L Carbon Dioxide Level 26 MMOL/L (21-32) Anion Gap 15 mmol/L (5-15) Blood Urea Nitrogen 109 mg/dL (7-18) H Creatinine 7.0 MG/DL (0.55-1.30) H Estimat Glomerular Filtration Rate 7.9 mL/min (>60) Glucose Level 175 MG/DL (74-106) H Calcium Level 9.2 MG/DL (8.5-10.1) Total Bilirubin 0.4 MG/DL (0.2-1.0) Aspartate Amino Transf (AST/SGOT) 13 U/L (15-37) L Alanine Aminotransferase (ALT/SGPT) 13 U/L (12-78) Alkaline Phosphatase 131 U/L (46-116) H Total Protein 6.7 G/DL (6.4-8.2) Albumin 2.0 G/DL (3.4-5.0) L Globulin 4.7 g/dL Albumin/Globulin Ratio 0.4 (1.0-2.7) L Objective HEAD AND NECK: No JVD. Tracheostomy intact LUNGS: Clear CARDIOVASCULAR: Irregular S1 and S2 with no gallop. Sternotomy is intact Pacemaker in the right subclavian ABDOMEN: Soft. PEG in place EXTREMITIES: Right heel connected to WoundVac Shivam Sharpe MD Jan 30, 2019 19:02
--- NOTE | 2019-01-30 20:18 | Infectious Diseases Prog Note ---
Assessment/Plan Problems: (1) Foot ulcer Assessment & Plan: with MRSA grew out of it in the past, S/P vancomycin treatment with HD for two weeks, had vascular eval with revascularization to the right leg , S/P ulcer resection by farm mechanic . deep ulcer culture grew MRSA and E.coli with diphtheroids , possible colonization , with no evidence of active infection as per discussion with podiatry , no need to be started on antibiotics for now , will continue to monitor clinically and make recommendations as necessary . bone scan ruled out osteomyelitis of the heel before, couldn't do an MRI since on the vent . continue local wound care with wound VAC management as per farm mechanic . (2) Diarrhea Assessment & Plan: improved, with no infectious etiology so far , and negative stool for C diff toxin , and no pathogens on stool culture , use laxatives as needed , monitor clinically , encourage hydration (3) Thrush, oral Assessment & Plan: resolved with local nystatin as needed , S/P micafungin for three weeks empirically (4) HCV antibody positive Assessment & Plan: no evidence of active infection, with undetectable viral load , suspect due to previous infection , cleared, S/P liver transplant . (5) DM (diabetes mellitus) Assessment & Plan: recommend tight glycemic control to keep blood glucose between 100-140 (6) CHF (congestive heart failure) Assessment & Plan: on HD , renal is following, monitor daily weight , S/P multiple thoracentesis (7) Severe tongue swelling Assessment & Plan: improving , s/p tracheostomy to protect his airway since respiratory status worsened . now improving, pulmonary is following (8) Pleural effusion Assessment & Plan: recurrent on the right, with lung collapse , S/P thoracentesis X 3 now with removal of 2.3 liters of clear fluids on 12/31/18 . await fluids culture and gram stain, with PH and Glucose level . PREVIOUS culture were negative with negative cytology. pulmonary is following (9) Ascites Assessment & Plan: S/P paracentesis with removal of 4.1 liters of fluids, culture so far is negative Assessment/Plan will continue to monitor patient on daily basis and make recommendations as necessary since he is high risk for recurrent infection Subjective Constitutional: Reports: no symptoms HEENT: Reports: no symptoms Respiratory: Reports: no symptoms Breasts: Reports: no symptoms Cardiovascular: Reports: no symptoms Gastrointestinal/Abdominal: Reports: no symptoms Genitourinary: Reports: no symptoms Neurologic: Reports: no symptoms Psychiatric: Reports: no symptoms Skin: Reports: no symptoms Endocrine: Reports: no symptoms Hematologic: Reports: no symptoms Musculoskeletal: Reports: no symptoms Allergies: Coded Allergies: CEPHALEXIN (Unverified Allergy, Unknown, 02/24/14) SULFAMETHOXAZOLE (Unverified Allergy, Unknown, 02/24/14) TRIMETHOPRIM (Unverified Allergy, Unknown, 02/24/14) Subjective he was comfortable, lying in bed, awake and responsive, no fever or chills, no significant secretions from the trach , no SOB . has left heel with wound VAC in place, but no draining coming out . no diarrhea . Objective Vital Signs Last 24 Hour Vital Signs Date Time Temp Pulse Resp B/P (MAP) Pulse Ox O2 Delivery O2 Flow Rate FiO2 01/30/19 17:17 78 22 40 01/30/19 16:00 40 01/30/19 16:00 69 01/30/19 16:00 Mechanical Ventilator 01/30/19 15:15 68 18 40 01/30/19 13:00 72 22 40 01/30/19 12:00 69 01/30/19 12:00 40 01/30/19 12:00 Mechanical Ventilator 01/30/19 12:00 97.0 68 26 97/73 (81) 100 01/30/19 11:36 97 01/30/19 11:12 68 20 40 01/30/19 09:01 74 22 40 01/30/19 09:00 74 148/76 01/30/19 08:04 72 01/30/19 08:00 40 01/30/19 08:00 Mechanical Ventilator 01/30/19 08:00 97.0 71 26 121/63 (82) 100 01/30/19 07:28 70 18 40 01/30/19 04:57 71 23 40 01/30/19 04:00 71 01/30/19 04:00 Mechanical Ventilator 01/30/19 04:00 40 01/30/19 03:12 65 25 40 01/30/19 01:14 78 24 40 01/30/19 00:00 Mechanical Ventilator 01/30/19 00:00 40 01/29/19 23:58 97.8 69 24 148/76 (100) 100 01/29/19 23:09 75 24 40 01/29/19 21:29 72 24 40 01/29/19 20:58 73 135/55 Height (Feet): 5 Height (Inches): 4.00 Weight (Pounds): 207 General Appearance: WD/WN, no acute distress HEENT: normocephalic, atraumatic, anicteric, mucous membranes moist, PERRL Respiratory/Chest: chest wall non-tender, lungs clear, normal breath sounds, no respiratory distress, no accessory muscle use, decreased breath sounds, crackles/rales Cardiovascular: normal peripheral pulses, normal rate, regular rhythm, no gallop/murmur, no JVD Abdomen: normal bowel sounds, soft, non tender, no organomegaly, non distended , no mass, no scars Extremities: no cyanosis, no clubbing Skin: no rash, no lesions, ulcers 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: 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, alert, responsive Lymphatic: no neck adenopathy, no groin adenopathy Musculoskeletal: normal muscle bulk Laboratory Tests Test 01/30/19 04:49 White Blood Count 5.9 K/UL (4.8-10.8) Red Blood Count 3.45 M/UL (4.70-6.10) L Hemoglobin 8.6 G/DL (14.2-18.0) L Hematocrit 26.5 % (42.0-52.0) L Mean Corpuscular Volume 77 FL (80-99) L Mean Corpuscular Hemoglobin 25.0 PG (27.0-31.0) L Mean Corpuscular Hemoglobin Concent 32.6 G/DL (32.0-36.0) Red Cell Distribution Width 16.5 % (11.6-14.8) H Platelet Count 229 K/UL (150-450) Mean Platelet Volume 6.0 FL (6.5-10.1) L Neutrophils (%) (Auto) 72.3 % (45.0-75.0) Lymphocytes (%) (Auto) 17.9 % (20.0-45.0) L Monocytes (%) (Auto) 8.8 % (1.0-10.0) Eosinophils (%) (Auto) 0.0 % (0.0-3.0) Basophils (%) (Auto) 1.0 % (0.0-2.0) Sodium Level 132 MMOL/L (136-145) L Potassium Level 3.9 MMOL/L (3.5-5.1) Chloride Level 91 MMOL/L (98-107) L Carbon Dioxide Level 26 MMOL/L (21-32) Anion Gap 15 mmol/L (5-15) Blood Urea Nitrogen 109 mg/dL (7-18) H Creatinine 7.0 MG/DL (0.55-1.30) H Estimat Glomerular Filtration Rate 7.9 mL/min (>60) Glucose Level 175 MG/DL (74-106) H Calcium Level 9.2 MG/DL (8.5-10.1) Total Bilirubin 0.4 MG/DL (0.2-1.0) Aspartate Amino Transf (AST/SGOT) 13 U/L (15-37) L Alanine Aminotransferase (ALT/SGPT) 13 U/L (12-78) Alkaline Phosphatase 131 U/L (46-116) H Total Protein 6.7 G/DL (6.4-8.2) Albumin 2.0 G/DL (3.4-5.0) L Globulin 4.7 g/dL Albumin/Globulin Ratio 0.4 (1.0-2.7) L Current Medications Medications (Trade) Dose Ordered Sig/Aleks Route PRN Reason Start Time Stop Time Status Last Admin Dose Admin Apixaban (Eliquis) 2.5 mg BID GT 01/01/19 21:00 01/31/19 20:59 01/30/19 17:14 Aspirin (ASA) 81 mg DAILY PEG 01/19/19 09:00 02/18/19 08:59 01/29/19 09:11 Atorvastatin Calcium (Lipitor) 10 mg BEDTIME GT 01/18/19 21:00 02/17/19 20:59 01/29/19 20:59 Carvedilol (Coreg) 3.125 mg EVERY 12 HOURS PEG 01/18/19 21:00 02/17/19 20:59 01/29/19 20:58 Clotrimazole (Lotrimin) 1 applic DAILY TOPIC 01/08/19 18:00 02/07/19 17:59 01/30/19 09:51 Dextrose (Dextrose 50%) 25 ml Q30M PRN IV Hypoglycemia 12/31/18 23:00 01/30/19 22:59 Dextrose (Dextrose 50%) 50 ml Q30M PRN IV Hypoglycemia 12/31/18 23:00 01/30/19 22:59 Docusate Sodium (Colace) 100 mg TWICE A DAY GT 01/18/19 18:00 02/17/19 17:59 01/30/19 17:14 Epoetin Vini (Epoetin Vini(ESRD on dialysis)) 10,000 unit FRI- SUBQ 01/06/19 21:00 02/05/19 20:59 01/29/19 20:58 Escitalopram Oxalate (Lexapro) 20 mg DAILY GT 01/05/19 09:00 02/04/19 08:59 01/30/19 08:53 Hydralazine HCl (Apresoline) 25 mg Q4H PRN GT bp over 160 syst 01/06/19 15:00 02/05/19 14:59 Ibuprofen (Advil) 400 mg TIDPRN PRN ORAL For Pain 01/18/19 11:30 02/17/19 11:29 01/30/19 08:55 Insulin Aspart (NovoLOG) EVERY 6 HOURS SUBQ 01/01/19 00:00 01/31/19 00:00 01/30/19 17:18 Lansoprazole (Prevacid) 30 mg DAILY GT 01/16/19 09:00 02/15/19 08:59 01/30/19 08:54 Loperamide HCl (Imodium) 2 mg Q6H PRN GT Diarrhea 01/07/19 11:00 02/06/19 10:59 01/28/19 20:49 Francois Landis M.D. Jan 30, 2019 20:18
[2019-01-31] VITALS: BP 133/55
[2019-01-31] MEDS: NovoLOG Insulin Flexpen SUBQ SCH (00:41)
[2019-01-31 08:00] VITALS: BP 126/46
[2019-01-31] MEDS: Docusate 100mg/10ml Liq GT SCH ×2 (09:00→17:35)
[2019-01-31] MEDS: Aspirin Baby 81mg PEG SCH (10:15)
[2019-01-31] MEDS: Eliquis 2.5mg tablet GT SCH ×2 (10:17→17:35)
--- NOTE | 2019-01-31 10:27 | General Progress Note ---
Assessment/Plan Status: stable Assessment/Plan: Status: stable Assessment/Plan: #Right heel diabetic foot ulcer without osteomyelitis #PAD #Right IJ DVT -Evaluated by Podiatry and ID -s/p Vanco x 2 weeks during HD and now OFF. Bone scan was negative for osteomyelitis and MRI not possible due to intubation. -continue Eliquis therapy -Vascular Surgery and Hematology following #Acute Resp hypercapnic failure s/p tracheostomy - ventilator weaning per pulmonary #Angioedema #Large right pleural effusion # R side trapped lung -continue trach care -Remains vent-dependant, breathing trials ongoing -Right thoracentesis 01/01/19 with 2.3 lt removed. Post procedure CXR with R trapped lung. -Vent weaning per pulmonary - unable to wean off yet. #End-stage renal disease, on dialysis M-W- #RUE edema #Anasarca, ascites, scrotal edema, pleural effusion due to hypoalbuminemia -HD with UF per Nephrology -s/p PRBC transfusion during HD - PRBC as needed if Hb < 7 - Paracentesis 4.1 lt in 12/31/18 #Coronary artery disease # s/p PPM # HTN -continue ASA, Coreg, atorvastatin -cardiology following #Type 2 DM -ISS #Acute metabolic encephalopathy -continue supportive care -Neurology following #history of chronic HCV infection #history of liver transplant -continue Prograf -GI following, discussed with Dr. Browne today and updated on Tacrolimus not being given since 01/27/19. Per review of record it was not renewed. Will restart at 2 mg BID and monitor level later this week. #Abdominal distension and ascites s/p therapeutic paracentesis -no nausea, vomiting or tenderness -continue supportive care -GI following -s/p paracentesis 12/31/18 4.1 lt #Dysphagia S/p PEG with PEG site cellulitis -s/p antibiotics per ID and GI -continue local wound care -tolerating tube feeds #Disposition -Pending SNF placement # FULL CODE Subjective ROS Limited/Unobtainable: Yes Allergies: Coded Allergies: CEPHALEXIN (Unverified Allergy, Unknown, 02/24/14) SULFAMETHOXAZOLE (Unverified Allergy, Unknown, 02/24/14) TRIMETHOPRIM (Unverified Allergy, Unknown, 02/24/14) Subjective 11 1patient is s/p tracheostomy and PEG. 5/17 thoracentesis L side 2.3 lt 12/31 paracenthesis 4.1 lt 12/30 last weaning trial Objective Last 24 Hour Vital Signs Date Time Temp Pulse Resp B/P (MAP) Pulse Ox O2 Delivery O2 Flow Rate FiO2 01/31/19 10:16 76 126/46 01/31/19 09:34 76 22 40 01/31/19 08:00 99.0 74 22 126/46 (72) 100 01/31/19 06:55 74 24 40 01/31/19 05:30 81 24 40 01/31/19 04:00 Mechanical Ventilator 01/31/19 04:00 40 01/31/19 03:42 70 01/31/19 03:21 82 23 40 01/31/19 01:42 80 23 40 01/31/19 00:00 Mechanical Ventilator 01/31/19 00:00 98.5 73 24 133/55 (81) 100 01/30/19 23:31 75 01/30/19 23:19 83 24 40 01/30/19 21:29 84 20 40 01/30/19 21:16 73 131/56 01/30/19 20:00 Mechanical Ventilator 01/30/19 20:00 40 01/30/19 19:35 74 01/30/19 19:29 81 20 40 01/30/19 17:17 78 22 40 01/30/19 16:00 40 01/30/19 16:00 69 01/30/19 16:00 Mechanical Ventilator 01/30/19 15:15 68 18 40 01/30/19 13:00 72 22 40 01/30/19 12:00 69 01/30/19 12:00 40 01/30/19 12:00 Mechanical Ventilator 01/30/19 12:00 97.0 68 26 97/73 (81) 100 01/30/19 11:36 97 01/30/19 11:12 68 20 40 Intake and Output 01/30/19 01/31/19 19:00 07:00 Intake Total 690 ml 1165 ml Output Total 3000 ml Balance -2310 ml 1165 ml Free Water 150 ml 400 ml Tube Feeding 540 ml 765 ml Hemodialysis UF 3000 ml # Bowel Movements 3 2 Height (Feet): 5 Height (Inches): 4.00 Weight (Pounds): 202 General Appearance: WD/WN, moderate distress EENT: PERRL/EOMI Neck: non-tender Cardiovascular: normal rate, regular rhythm Respiratory/Chest: lungs clear, decreased breath sounds Abdomen: normal bowel sounds Edema: trace edema Neurologic: 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
--- NOTE | 2019-01-31 13:43 | Nephrology Progress Note ---
Assessment/Plan Problem List: (1) ESRD (end stage renal disease) on dialysis (2) Foot ulcer (3) CHF (congestive heart failure) Assessment: Ej Fx 20 % (4) Pacemaker (5) Acute respiratory failure Assessment: with Co2 retention (6) G-tube site cellulitis Assessment ESRD with high K and SOB on admit Foot ulcer, likely infected High Troponin likely NSTMI Pacer , Pleural effusion s/p CABGS s/p Liver transplant Plan dialysis 3 times weekly M W Fr or extra as needed labs before HD noted BP low- improved on midodrine per consultants, GI GT site infection, topical antibiotic Neuro note appreciated placement in process vascular esteban regarding heel ulcer per Dr Mcgill pain med change to dilaudid GT Now has tracheostomy and PEG Adjust BP meds add nitro paste TID Antibiotics by ID per cardio and ID Podiatry and Vascular surgical fu ? DC planning? Subjective ROS Limited/Unobtainable: No Constitutional: Reports: malaise Objective Objective Last 24 Hour Vital Signs Date Time Temp Pulse Resp B/P (MAP) Pulse Ox O2 Delivery O2 Flow Rate FiO2 01/31/19 12:00 40 01/31/19 12:00 Mechanical Ventilator 01/31/19 11:36 73 01/31/19 11:25 99 01/31/19 11:22 73 25 40 01/31/19 10:16 76 126/46 01/31/19 09:34 76 22 40 01/31/19 08:03 74 01/31/19 08:00 40 01/31/19 08:00 99.0 74 22 126/46 (72) 100 01/31/19 08:00 Mechanical Ventilator 01/31/19 06:55 74 24 40 01/31/19 05:30 81 24 40 01/31/19 04:00 Mechanical Ventilator 01/31/19 04:00 40 01/31/19 03:42 70 01/31/19 03:21 82 23 40 01/31/19 01:42 80 23 40 01/31/19 00:00 Mechanical Ventilator 01/31/19 00:00 98.5 73 24 133/55 (81) 100 01/30/19 23:31 75 01/30/19 23:19 83 24 40 01/30/19 21:29 84 20 40 01/30/19 21:16 73 131/56 01/30/19 20:00 Mechanical Ventilator 01/30/19 20:00 40 01/30/19 19:35 74 01/30/19 19:29 81 20 40 01/30/19 17:17 78 22 40 01/30/19 16:00 40 01/30/19 16:00 69 01/30/19 16:00 Mechanical Ventilator 01/30/19 15:15 68 18 40 Intake and Output 01/30/19 01/31/19 19:00 07:00 Intake Total 690 ml 1165 ml Output Total 3000 ml Balance -2310 ml 1165 ml Free Water 150 ml 400 ml Tube Feeding 540 ml 765 ml Hemodialysis UF 3000 ml # Bowel Movements 3 2 Height (Feet): 5 Height (Inches): 4.00 Weight (Pounds): 202 General Appearance: no apparent distress Objective no other change Nakul Stevens MD Jan 31, 2019 13:43
--- NOTE | 2019-01-31 16:44 | Cardiac Electrophysiology PN ---
Assessment/Plan Assessment/Plan 1. Troponin leak due to renal failure. No CP or SOB. Nl EF 2. Hx of CABG. On Coreg, aspirin and Lipitor 3. NSVT in setting of old CA and CABG. EF 55%. Continue Coreg. No Syncope 4. CHF and right pleural effusion. On hemodialysis. S/P Thoracentesis 5. S/P Right sided [employer] DDD pacemaker with Nl Fx. Mostly V paced 6. End-stage renal disease, on hemodialysis MWF per Dr. Stevens Dialysed yesterday and today also as had refused Friday 7. Multilevel AOD LE's with non-healing Right foot ulcer. Had abdominal angiogram per Dr Salmeron. FU by Dr. Huizar and Mawas S/P peripheral intervention by Dr. Salmeron 12/22/18 8. History of liver transplant on Prograf 9. Respiratory failure, S/P tracheostomy. 10. Pleural effusion. s/p thoracentesis 01/01/19 11. Dysphagia, S/P PEG DW RN and son Transfer pending Subjective Subjective Alert in NAD. No CP or SOB. Had HD yesterday. Son at bedside and wants patient to be transferred to [place]. Objective Last 24 Hour Vital Signs Date Time Temp Pulse Resp B/P (MAP) Pulse Ox O2 Delivery O2 Flow Rate FiO2 01/31/19 16:04 72 24 40 01/31/19 16:00 74 01/31/19 16:00 40 01/31/19 13:01 76 22 40 01/31/19 12:00 40 01/31/19 12:00 Mechanical Ventilator 01/31/19 11:36 73 01/31/19 11:25 99 01/31/19 11:22 73 25 40 01/31/19 10:16 76 126/46 01/31/19 09:34 76 22 40 01/31/19 08:03 74 01/31/19 08:00 40 01/31/19 08:00 99.0 74 22 126/46 (72) 100 01/31/19 08:00 Mechanical Ventilator 01/31/19 06:55 74 24 40 01/31/19 05:30 81 24 40 01/31/19 04:00 Mechanical Ventilator 01/31/19 04:00 40 01/31/19 03:42 70 01/31/19 03:21 82 23 40 01/31/19 01:42 80 23 40 01/31/19 00:00 Mechanical Ventilator 01/31/19 00:00 98.5 73 24 133/55 (81) 100 01/30/19 23:31 75 01/30/19 23:19 83 24 40 01/30/19 21:29 84 20 40 01/30/19 21:16 73 131/56 01/30/19 20:00 Mechanical Ventilator 01/30/19 20:00 40 01/30/19 19:35 74 01/30/19 19:29 81 20 40 01/30/19 17:17 78 22 40 Intake and Output 01/30/19 01/31/19 19:00 07:00 Intake Total 690 ml 1165 ml Output Total 3000 ml Balance -2310 ml 1165 ml Free Water 150 ml 400 ml Tube Feeding 540 ml 765 ml Hemodialysis UF 3000 ml # Bowel Movements 3 2 Objective HEAD AND NECK: No JVD. Tracheostomy intact LUNGS: Clear CARDIOVASCULAR: Irregular S1 and S2 with no gallop. Sternotomy is intact Pacemaker in the right subclavian ABDOMEN: Soft. PEG in place EXTREMITIES: Right heel connected to WoundVac Shivam Sharpe MD Jan 31, 2019 16:44
[2019-01-31 20:00] VITALS: BP 139/77
--- NOTE | 2019-01-31 23:02 | Infectious Diseases Prog Note ---
Assessment/Plan Problems: (1) Foot ulcer Assessment & Plan: with MRSA grew out of it in the past, S/P vancomycin treatment with HD for two weeks, had vascular eval with revascularization to the right leg , S/P ulcer resection by feeder operator automatic . deep ulcer culture grew MRSA and E.coli with diphtheroids , possible colonization , with no evidence of active infection as per discussion with podiatry , no need to be started on antibiotics for now , will continue to monitor clinically and make recommendations as necessary . bone scan ruled out osteomyelitis of the heel before, couldn't do an MRI since on the vent . continue local wound care with wound VAC management as per feeder operator automatic . (2) Diarrhea Assessment & Plan: improved, with no infectious etiology so far , and negative stool for C diff toxin , and no pathogens on stool culture , use laxatives as needed , monitor clinically , encourage hydration (3) Thrush, oral Assessment & Plan: resolved with local nystatin as needed , S/P micafungin for three weeks empirically (4) HCV antibody positive Assessment & Plan: no evidence of active infection, with undetectable viral load , suspect due to previous infection , cleared, S/P liver transplant . (5) DM (diabetes mellitus) Assessment & Plan: recommend tight glycemic control to keep blood glucose between 100-140 (6) CHF (congestive heart failure) Assessment & Plan: on HD , renal is following, monitor daily weight , S/P multiple thoracentesis (7) Severe tongue swelling Assessment & Plan: improving , s/p tracheostomy to protect his airway since respiratory status worsened . now improving, pulmonary is following (8) Pleural effusion Assessment & Plan: recurrent on the right, with lung collapse , S/P thoracentesis X 3 now with removal of 2.3 liters of clear fluids on 12/31/18 . await fluids culture and gram stain, with PH and Glucose level . PREVIOUS culture were negative with negative cytology. pulmonary is following (9) Ascites Assessment & Plan: S/P paracentesis with removal of 4.1 liters of fluids, culture so far is negative Assessment/Plan will continue to monitor patient on daily basis and make recommendations as necessary since he is high risk for recurrent infection Subjective Constitutional: Reports: no symptoms HEENT: Reports: no symptoms Respiratory: Reports: no symptoms Breasts: Reports: no symptoms Cardiovascular: Reports: no symptoms Gastrointestinal/Abdominal: Reports: no symptoms Genitourinary: Reports: no symptoms Neurologic: Reports: no symptoms Psychiatric: Reports: no symptoms Skin: Reports: no symptoms Endocrine: Reports: no symptoms Hematologic: Reports: no symptoms Musculoskeletal: Reports: no symptoms Allergies: Coded Allergies: CEPHALEXIN (Unverified Allergy, Unknown, 02/24/14) SULFAMETHOXAZOLE (Unverified Allergy, Unknown, 02/24/14) TRIMETHOPRIM (Unverified Allergy, Unknown, 02/24/14) Subjective he was comfortable, lying in bed, awake and responsive, no fever or chills, no significant secretions from the trach , no SOB . has left heel with wound VAC in place, but no draining coming out . no diarrhea . Objective Vital Signs Last 24 Hour Vital Signs Date Time Temp Pulse Resp B/P (MAP) Pulse Ox O2 Delivery O2 Flow Rate FiO2 01/31/19 21:54 87 139/77 01/31/19 21:26 87 20 40 01/31/19 20:00 81 19 40 01/31/19 20:00 75 01/31/19 20:00 Mechanical Ventilator 01/31/19 20:00 97.8 74 28 139/77 (97) 100 01/31/19 20:00 40 01/31/19 17:16 75 25 40 01/31/19 16:04 72 24 40 01/31/19 16:00 74 01/31/19 16:00 40 01/31/19 16:00 Mechanical Ventilator 01/31/19 13:01 76 22 40 01/31/19 12:00 40 01/31/19 12:00 Mechanical Ventilator 01/31/19 11:36 73 01/31/19 11:25 99 01/31/19 11:22 73 25 40 01/31/19 10:16 76 126/46 01/31/19 09:34 76 22 40 01/31/19 08:03 74 01/31/19 08:00 40 01/31/19 08:00 99.0 74 22 126/46 (72) 100 01/31/19 08:00 Mechanical Ventilator 01/31/19 06:55 74 24 40 01/31/19 05:30 81 24 40 01/31/19 04:00 Mechanical Ventilator 01/31/19 04:00 40 01/31/19 03:42 70 01/31/19 03:21 82 23 40 01/31/19 01:42 80 23 40 01/31/19 00:00 Mechanical Ventilator 01/31/19 00:00 98.5 73 24 133/55 (81) 100 01/30/19 23:31 75 01/30/19 23:19 83 24 40 Height (Feet): 5 Height (Inches): 4.00 Weight (Pounds): 202 General Appearance: WD/WN, no acute distress HEENT: normocephalic, atraumatic, anicteric, mucous membranes moist, PERRL, EOMI, pharynx normal, supple, no JVD Respiratory/Chest: chest wall non-tender, no respiratory distress, no accessory muscle use, decreased breath sounds, crackles/rales Cardiovascular: normal peripheral pulses, normal rate, regular rhythm, no gallop/murmur, no JVD Abdomen: normal bowel sounds, soft, non tender, no organomegaly, non distended , no mass, no scars Genitourinary: normal external genitalia Extremities: no cyanosis, no clubbing Skin: no rash, no lesions, no ulcers 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: 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, no motor/sensory deficits, responsive, normal mood/affect Lymphatic: no neck adenopathy, no groin adenopathy Musculoskeletal: normal muscle bulk, no effusion Current Medications Medications (Trade) Dose Ordered Sig/Aleks Route PRN Reason Start Time Stop Time Status Last Admin Dose Admin Apixaban (Eliquis) 2.5 mg BID GT 01/31/19 09:00 03/02/19 08:59 01/31/19 17:35 Aspirin (ASA) 81 mg DAILY PEG 01/19/19 09:00 02/18/19 08:59 01/31/19 10:15 Atorvastatin Calcium (Lipitor) 10 mg BEDTIME GT 01/18/19 21:00 02/17/19 20:59 01/31/19 21:54 Carvedilol (Coreg) 3.125 mg EVERY 12 HOURS PEG 01/18/19 21:00 02/17/19 20:59 01/31/19 21:54 Clotrimazole (Lotrimin) 1 applic DAILY TOPIC 01/08/19 18:00 02/07/19 17:59 01/31/19 10:23 Docusate Sodium (Colace) 100 mg TWICE A DAY GT 01/18/19 18:00 02/17/19 17:59 01/30/19 17:14 Epoetin Vini (Epoetin Vini(ESRD on dialysis)) 10,000 unit -FRI SUBQ 01/06/19 21:00 02/05/19 20:59 01/29/19 20:58 Escitalopram Oxalate (Lexapro) 20 mg DAILY GT 01/05/19 09:00 02/04/19 08:59 01/31/19 10:15 Hydralazine HCl (Apresoline) 25 mg Q4H PRN GT bp over 160 syst 01/06/19 15:00 02/05/19 14:59 Ibuprofen (Advil) 400 mg TIDPRN PRN ORAL For Pain 01/18/19 11:30 02/17/19 11:29 01/30/19 21:17 Lansoprazole (Prevacid) 30 mg DAILY GT 01/16/19 09:00 02/15/19 08:59 01/31/19 10:22 Loperamide HCl (Imodium) 2 mg Q6H PRN GT Diarrhea 01/07/19 11:00 02/06/19 10:59 01/31/19 10:17 Tacrolimus (Prograf) 2 mg MoWeFr@0000,1200 GT 02/01/19 00:00 03/03/19 00:00 Tacrolimus (Prograf) 2 mg SuTuThSa@0900,2100 GT 01/31/19 21:00 03/02/19 20:59 01/31/19 21:54 Francois Landis M.D. Jan 31, 2019 23:01
--- NOTE | 2019-01-31 23:41 | Hematology/Onc Progress Note ---
Assessment/Plan Assessment/Plan Assessment and Recs: # Anemia of chronic disease due to underlying chronic medical issues, range has been 8-11, ferritin is 633, tibc is low. --> No evidence of hemolysis is noted, peripheral smear has been reviewed. --> Epogen with HD 3x/wk --> Medications have been reviewed --> evaluate with Gi team prn --> transfuse if hgb is < 7 (will trend CBC daily) --> hgb trend 11.2-->10.9-->10.8-->10.7-->10.2-->9.7-->9.7-->8.5-->9-->9.2-->8.4 -->7.7-->8.8-->9.1-->8.6-->8.3-->8.9--> --> s/p transfusion on 01/06 --> EGD stomach Antrum bx no malignancy noted pathology results reviewed. # Failure to thrive is likely related to poor overall status, poor functional status --> GT++ as per gi --> with multiple decub ulcerations that are noted, seen by id/surgery --> s/p trach as well --> cea is wnl # Acute non-occlusive dvt, right extremity ultrasound (acute non-occlusive DVT in internal jugular) --> currently is on eliquis 2.5mg po bid --> do not recommend a SVC filter --> given prior bleeding risk, hold off on heparin gtt --> vasc surgeon is aware, seek recs # Coagulopathy likely secondary to decreased Vitk dependent cofactors (high INR , PT) --> monitor closely for any evidence of bleeding. Currently is on eliquis --> VIT K on prn basis sq can be administered --> recently has improved inr 1.2-->1.1-->1.2-->1.1-->1.1 # Acute respiratory failure is now s/p trach to vent --> as per surgery recs # Ground glass opacities present on imaging of lung --> with pleural effusions, s/p drainage at this time --> no evidence for malignancy is noted --> as per pulm/id # Pleural effusion --> s/p thoracentesis, s/p paracentesis 12/31 --> no evidence of malignancy -->01/14 cxr: Interstitial edema, small left pleural effusion # Hyperkalemia --> kayxelate on prn basis per renal --> monitor K+ # Renal failure --> per renal recs, appreciated --> getting hd as per schedule 3x week # Altered level of consciousness --> currently as per baseline --> neuro eval prn # PAD off heparin gtt and now on eliquis --> per vasc and cards --> 12/22 s/p right leg angiogram with intervention --> on eliquis, continue # Gt tube cellulitis, on topical abx as per id around site #. Ascites --> fluid cytology no malignancy noted The timing of this note does not necessarily reflect the time of the patient was seen. Greatly appreciate consultation!. Subjective Allergies: Coded Allergies: CEPHALEXIN (Unverified Allergy, Unknown, 02/24/14) SULFAMETHOXAZOLE (Unverified Allergy, Unknown, 02/24/14) TRIMETHOPRIM (Unverified Allergy, Unknown, 02/24/14) Subjective Subjective Subjective Allergies: Coded Allergies: CEPHALEXIN (Unverified Allergy, Unknown, 02/24/14) SULFAMETHOXAZOLE (Unverified Allergy, Unknown, 02/24/14) TRIMETHOPRIM (Unverified Allergy, Unknown, 02/24/14) Subjective 11/30: comfortable, on abx, no complaints, on t-piece 12/01: to have hd done potentially tomorrow, is more alert/awake 12/02: no major bleeding, hgb remains approx 11, no changes 12/03: no events, breathing mildly better, hgb is improved 12/04: on vent/trach, no major changes, sr ekg 12/10: small amount of secretions, on trach/vent, no issues otherwise 12/11: no major issues, no complaints, labs reviewed, no sig changes 12/13: no events to report, no fevers or chills, awaiting placement 12/14: no changes, no major events to report, no fevers or chills 12/15: pending placement, getting gt feeds and hd as per renal 12/16: labs have been reviewed, cbc noted, no changes 12/17: no events, no fevers, no cp, hgb remains stable 12/18: restarted on heparin gtt, seen by pulcamelia, cards 12/20: continues to be on heparin gtt, no bleeding reported, no f/c 12/21: hd for today, no fevers or chils, off hep gtt on eliquis 12/22: to get hd tomorrow, today is s/p right leg angiogram with intervention 12/23: hgb remins stable, no fevers or chills reported 12/24: no events, no bleeding, vitals reviewed, cbc stable 12/25: no events, no bleeding, on vent, hgb 9 12/27: no changes, no f/c, no night swearts, seen with other providers 12/28: right extremity ultrasound (acute non-occlusive DVT in internal jugular, on eliquis 12/29: no events, no night sweats, seen by gi, no bleeding 12/30: cbc has been reviewed, no f/c, no night sweats reported 12/31: no events, eliquis is on hold cbc has been reviewed, bp elevated 01/01: no fevers or chills, cbc reviewed, hgb 9.3, getting HD 01/02: no events noted, getting norco for pain, hgb stable 01/04: not events to report, no bleeding, refusing ivl at this time, cbc reviewed 01/05: no fevers or chills noted, s/p trach/vent, no f/c, no chills noted 01/06: no events, to get 1 unit prbc today, renal seen, on abx 01/07: hd for tomorrow, seen by renal, no events, cbc reviewed 01/08: getting Hd today, seen by renal, no major events, in sr 01/10: no events to report, to get hd tomorrow, hgb stable 01/11: on vent/trach, gtube, tolerating treatment well, hd today 01/12: remains nonverbal, stable, on vent/trach, no fc 01/13: no events noted, cbc has been reviewed 01/14: thora and para fluid still neg for malignancy, no bleeding 01/15: Pt examined at bedside. No acute events. Pt refusing IV access per nursing per nursing team. 01/17: Pt is awake and alert. Pt in stable condition. Hgb trending down: 8.3 will continue to monitor 01/18: Pt complain of abdominal pain and DIAZ. Hgb trend 8.3-->8.9 01/19: no events, cbc has been reviewed, hgb is stable today 01/20: Awake and alert, able to follow commands. Remains on vent. 01/21: Patient awake in bed. Trach to vent. Pt refused am lab draw. 01/22: no events, dc planning 01/23: no events, dc planning, on epogen and eliquis 01/26: no events, no f/c, tolerating trach well, hD prn 01/27: Patient is awake and oriented x4 no signs of distress 01/28: No acute distress, Pt resting in bed 01/29: no overnight events 01/30: pt agreed to labs this am, reviewed, no acute distress noted. 01/31: pt seen in the morning, GT was clogged. no bleeding reported. Afebrile. Objective Objective Current Medications Medications (Trade) Dose Ordered Sig/Aleks Route PRN Reason Start Time Stop Time Status Last Admin Dose Admin Apixaban (Eliquis) 2.5 mg BID GT 01/31/19 09:00 03/02/19 08:59 01/31/19 17:35 Aspirin (ASA) 81 mg DAILY PEG 01/19/19 09:00 02/18/19 08:59 01/31/19 10:15 Atorvastatin Calcium (Lipitor) 10 mg BEDTIME GT 01/18/19 21:00 02/17/19 20:59 01/31/19 21:54 Carvedilol (Coreg) 3.125 mg EVERY 12 HOURS PEG 01/18/19 21:00 02/17/19 20:59 01/31/19 21:54 Clotrimazole (Lotrimin) 1 applic DAILY TOPIC 01/08/19 18:00 02/07/19 17:59 01/31/19 10:23 Docusate Sodium (Colace) 100 mg TWICE A DAY GT 01/18/19 18:00 02/17/19 17:59 01/30/19 17:14 Epoetin Vini (Epoetin Vini(ESRD on dialysis)) 10,000 unit FRI- SUBQ 01/06/19 21:00 02/05/19 20:59 01/29/19 20:58 Escitalopram Oxalate (Lexapro) 20 mg DAILY GT 01/05/19 09:00 02/04/19 08:59 01/31/19 10:15 Hydralazine HCl (Apresoline) 25 mg Q4H PRN GT bp over 160 syst 01/06/19 15:00 02/05/19 14:59 Ibuprofen (Advil) 400 mg TIDPRN PRN ORAL For Pain 01/18/19 11:30 02/17/19 11:29 01/30/19 21:17 Lansoprazole (Prevacid) 30 mg DAILY GT 01/16/19 09:00 02/15/19 08:59 01/31/19 10:22 Loperamide HCl (Imodium) 2 mg Q6H PRN GT Diarrhea 01/07/19 11:00 02/06/19 10:59 01/31/19 10:17 Tacrolimus (Prograf) 2 mg MoWeFr@0000,1200 GT 02/01/19 00:00 03/03/19 00:00 Tacrolimus (Prograf) 2 mg SuTuThSa@0900,2100 GT 01/31/19 21:00 03/02/19 20:59 01/31/19 21:54 Last 24 Hour Vital Signs Date Time Temp Pulse Resp B/P (MAP) Pulse Ox O2 Delivery O2 Flow Rate FiO2 01/31/19 23:25 82 23 40 01/31/19 21:54 87 139/77 01/31/19 21:26 87 20 40 01/31/19 20:00 81 19 40 01/31/19 20:00 75 01/31/19 20:00 Mechanical Ventilator 01/31/19 20:00 97.8 74 28 139/77 (97) 100 01/31/19 20:00 40 01/31/19 17:16 75 25 40 01/31/19 16:04 72 24 40 01/31/19 16:00 74 01/31/19 16:00 40 01/31/19 16:00 Mechanical Ventilator 01/31/19 13:01 76 22 40 01/31/19 12:00 40 01/31/19 12:00 Mechanical Ventilator 01/31/19 11:36 73 01/31/19 11:25 99 01/31/19 11:22 73 25 40 01/31/19 10:16 76 126/46 01/31/19 09:34 76 22 40 01/31/19 08:03 74 01/31/19 08:00 40 01/31/19 08:00 99.0 74 22 126/46 (72) 100 01/31/19 08:00 Mechanical Ventilator 01/31/19 06:55 74 24 40 01/31/19 05:30 81 24 40 01/31/19 04:00 Mechanical Ventilator 01/31/19 04:00 40 01/31/19 03:42 70 01/31/19 03:21 82 23 40 01/31/19 01:42 80 23 40 01/31/19 00:00 Mechanical Ventilator 01/31/19 00:00 98.5 73 24 133/55 (81) 100 01/30/19 23:31 75 01/30/19 23:19 83 24 40 01/30/19 21:29 84 20 40 01/30/19 21:16 73 131/56 01/30/19 20:00 Mechanical Ventilator 01/30/19 20:00 40 01/30/19 19:35 74 01/30/19 19:29 81 20 40 01/30/19 17:17 78 22 40 01/30/19 16:00 40 01/30/19 16:00 69 01/30/19 16:00 Mechanical Ventilator 01/30/19 15:15 68 18 40 01/30/19 13:00 72 22 40 01/30/19 12:00 69 01/30/19 12:00 40 01/30/19 12:00 Mechanical Ventilator 01/30/19 12:00 97.0 68 26 97/73 (81) 100 01/30/19 11:36 97 01/30/19 11:12 68 20 40 01/30/19 09:01 74 22 40 01/30/19 09:00 74 148/76 01/30/19 08:04 72 01/30/19 08:00 40 01/30/19 08:00 Mechanical Ventilator 01/30/19 08:00 97.0 71 26 121/63 (82) 100 01/30/19 07:28 70 18 40 01/30/19 04:57 71 23 40 01/30/19 04:00 71 01/30/19 04:00 Mechanical Ventilator 01/30/19 04:00 40 01/30/19 03:12 65 25 40 01/30/19 01:14 78 24 40 01/30/19 00:00 Mechanical Ventilator 01/30/19 00:00 40 01/29/19 23:58 97.8 69 24 148/76 (100) 100 Intake and Output 01/30/19 01/31/19 19:00 07:00 Intake Total 690 ml 1165 ml Output Total 3000 ml Balance -2310 ml 1165 ml Free Water 150 ml 400 ml Tube Feeding 540 ml 765 ml Hemodialysis UF 3000 ml # Bowel Movements 3 2 Labs Test 01/30/19 04:49 White Blood Count 5.9 K/UL (4.8-10.8) Red Blood Count 3.45 M/UL (4.70-6.10) Hemoglobin 8.6 G/DL (14.2-18.0) Hematocrit 26.5 % (42.0-52.0) Mean Corpuscular Volume 77 FL (80-99) Mean Corpuscular Hemoglobin 25.0 PG (27.0-31.0) Mean Corpuscular Hemoglobin Concent 32.6 G/DL (32.0-36.0) Red Cell Distribution Width 16.5 % (11.6-14.8) Platelet Count 229 K/UL (150-450) Mean Platelet Volume 6.0 FL (6.5-10.1) Neutrophils (%) (Auto) 72.3 % (45.0-75.0) Lymphocytes (%) (Auto) 17.9 % (20.0-45.0) Monocytes (%) (Auto) 8.8 % (1.0-10.0) Eosinophils (%) (Auto) 0.0 % (0.0-3.0) Basophils (%) (Auto) 1.0 % (0.0-2.0) Sodium Level 132 MMOL/L (136-145) Potassium Level 3.9 MMOL/L (3.5-5.1) Chloride Level 91 MMOL/L (98-107) Carbon Dioxide Level 26 MMOL/L (21-32) Anion Gap 15 mmol/L (5-15) Blood Urea Nitrogen 109 mg/dL (7-18) Creatinine 7.0 MG/DL (0.55-1.30) Estimat Glomerular Filtration Rate 7.9 mL/min (>60) Glucose Level 175 MG/DL (74-106) Calcium Level 9.2 MG/DL (8.5-10.1) Total Bilirubin 0.4 MG/DL (0.2-1.0) Aspartate Amino Transf (AST/SGOT) 13 U/L (15-37) Alanine Aminotransferase (ALT/SGPT) 13 U/L (12-78) Alkaline Phosphatase 131 U/L (46-116) Total Protein 6.7 G/DL (6.4-8.2) Albumin 2.0 G/DL (3.4-5.0) Globulin 4.7 g/dL Albumin/Globulin Ratio 0.4 (1.0-2.7) Height (Feet): 5 Height (Inches): 4.00 Weight (Pounds): 202 Objective PE General Appearance: No acute distress. Lines, tubes and drains: peripheral HEENT: EOMI, ++ thrush, tonsils swollen ++trach on vent Neck: normal inspection Respiratory/Chest: decreased breath sounds, accessory muscle use. VENT++ Cardiovascular/Chest: tachycardia Abdomen: soft, no organomegaly, no mass, ++ peg Extremities: other Skin Exam: warm/dry, rash Neurologic: alert, responsive Whitney Young NP Jan 31, 2019 23:41
[2019-02-01] VITALS: BP 108/52
[2019-02-01 04:00] VITALS: BP 121/93
--- NOTE | 2019-02-01 05:17 | Cardiac Electrophysiology PN ---
Assessment/Plan Assessment/Plan 1. Troponin leak due to renal failure. No CP or SOB. Nl EF 2. Hx of CABG. On Coreg, aspirin and Lipitor 3. NSVT in setting of old OK and CABG. EF 55%. Continue Coreg. No Syncope 4. CHF and right pleural effusion. On hemodialysis. S/P Thoracentesis 5. S/P Right sided [employer] DDD pacemaker with Nl Fx. Mostly V paced 6. End-stage renal disease, on hemodialysis MWF per Dr. Stevens Dialysed yesterday 7. Multilevel AOD LE's with non-healing Right foot ulcer. Had abdominal angiogram per Dr Salmeron. FU by Dr. Huizar and Mawas S/P peripheral intervention by Dr. Salmeron 12/22/18 8. History of liver transplant on Prograf 9. Respiratory failure, S/P tracheostomy. 10. Pleural effusion. s/p thoracentesis 01/01/19 11. Dysphagia, S/P PEG Transfer pending Subjective Subjective No CP or SOB. No events. Objective Last 24 Hour Vital Signs Date Time Temp Pulse Resp B/P (MAP) Pulse Ox O2 Delivery O2 Flow Rate FiO2 02/01/19 05:07 88 23 40 02/01/19 03:14 81 20 40 02/01/19 01:51 88 21 40 02/01/19 00:00 Mechanical Ventilator 01/31/19 23:25 82 23 40 01/31/19 21:54 87 139/77 01/31/19 21:26 87 20 40 01/31/19 20:00 81 19 40 01/31/19 20:00 75 01/31/19 20:00 Mechanical Ventilator 01/31/19 20:00 97.8 74 28 139/77 (97) 100 01/31/19 20:00 40 01/31/19 17:16 75 25 40 01/31/19 16:04 72 24 40 01/31/19 16:00 74 01/31/19 16:00 40 01/31/19 16:00 Mechanical Ventilator 01/31/19 13:01 76 22 40 01/31/19 12:00 40 01/31/19 12:00 Mechanical Ventilator 01/31/19 11:36 73 01/31/19 11:25 99 01/31/19 11:22 73 25 40 01/31/19 10:16 76 126/46 01/31/19 09:34 76 22 40 01/31/19 08:03 74 01/31/19 08:00 40 01/31/19 08:00 99.0 74 22 126/46 (72) 100 01/31/19 08:00 Mechanical Ventilator 01/31/19 06:55 74 24 40 01/31/19 05:30 81 24 40 Intake and Output 01/31/19 02/01/19 18:59 06:59 Intake Total 625 ml 300 ml Balance 625 ml 300 ml Free Water 220 ml 120 ml Tube Feeding 405 ml 180 ml # Bowel Movements 6 2 Objective HEAD AND NECK: No JVD. Tracheostomy intact LUNGS: Clear CARDIOVASCULAR: Irregular S1 and S2 with no gallop. Sternotomy is intact Pacemaker in the right subclavian ABDOMEN: Soft. PEG in place EXTREMITIES: Right heel connected to WoundVac Shivam Sharpe MD Feb 01, 2019 05:17
[2019-02-01] MEDS: Aspirin Baby 81mg PEG SCH (08:20)
[2019-02-01] MEDS: Eliquis 2.5mg tablet GT SCH ×2 (08:21→17:24)
[2019-02-01] MEDS: Docusate 100mg/10ml Liq GT SCH ×2 (08:22→17:29)
--- NOTE | 2019-02-01 10:14 | General Progress Note ---
Assessment/Plan Problem List: (1) Transplant ICD Codes: Z94.9 - Transplanted organ and tissue status, unspecified SNOMED: 829357509 (2) HTN (hypertension) ICD Codes: I10 - Essential (primary) hypertension SNOMED: 20113499 (3) Pacemaker ICD Codes: Z95.0 - Presence of cardiac pacemaker SNOMED: 866742175 (4) CHF (congestive heart failure) ICD Codes: I50.9 - Heart failure, unspecified SNOMED: 98057041 (5) DM (diabetes mellitus) ICD Codes: E11.9 - Type 2 diabetes mellitus without complications SNOMED: 80862891 (6) Foot ulcer ICD Codes: L97.509 - Non-pressure chronic ulcer of other part of unspecified foot with unspecified severity SNOMED: 61119269 Qualifiers: Qualified Codes: L97.511 - Non-pressure chronic ulcer of other part of right foot limited to breakdown of skin (7) ESRD (end stage renal disease) on dialysis ICD Codes: N18.6 - End stage renal disease; Z99.2 - Dependence on renal dialysis SNOMED: 386688324 Status: stable Assessment/Plan: History of liver transplant, currently on Prograf History of cholecystectomy status post tracheostomy and PEG Infected G-tube site, fu ID recs C. difficile negative x 2 would care cx >> GRAM NEGATIVE BACILLUS CT AP reviewed, Moderate to large right pleural effusion. Moderate Ascites. s/p Paracentesis yielding 4.1 yield, r/o SBP >> negative for malignant cells Status post right thoracentesis yielding 2.1 L >> negative for malignant cells Continue G-tube feedings GT site care BID/prn topical abx around GT site per ID HD per nephro cont tacrolimus prn transfusions ppi zofran prn Imodium prn, Lomotil for persistent diarrhea follow labs supportive care outpatient Hep C tx, pending RNA PCR monitor LFTS Lomotil prn Subjective ROS Limited/Unobtainable: No Allergies: Coded Allergies: CEPHALEXIN (Unverified Allergy, Unknown, 02/24/14) SULFAMETHOXAZOLE (Unverified Allergy, Unknown, 02/24/14) TRIMETHOPRIM (Unverified Allergy, Unknown, 02/24/14) Subjective he pulled his NGT again Objective Last 24 Hour Vital Signs Date Time Temp Pulse Resp B/P (MAP) Pulse Ox O2 Delivery O2 Flow Rate FiO2 02/01/19 09:15 70 20 40 02/01/19 08:00 Mechanical Ventilator 02/01/19 08:00 40 02/01/19 08:00 70 02/01/19 06:55 76 23 40 02/01/19 05:07 88 23 40 02/01/19 04:00 40 02/01/19 04:00 Mechanical Ventilator 02/01/19 04:00 68 02/01/19 04:00 97.9 82 28 121/93 (102) 100 02/01/19 03:14 81 20 40 02/01/19 01:51 88 21 40 02/01/19 00:00 98.0 72 28 108/52 (70) 100 02/01/19 00:00 Mechanical Ventilator 01/31/19 23:25 82 23 40 01/31/19 21:54 87 139/77 01/31/19 21:26 87 20 40 01/31/19 20:00 81 19 40 01/31/19 20:00 75 01/31/19 20:00 Mechanical Ventilator 01/31/19 20:00 97.8 74 28 139/77 (97) 100 01/31/19 20:00 40 01/31/19 17:16 75 25 40 01/31/19 16:04 72 24 40 01/31/19 16:00 74 01/31/19 16:00 40 01/31/19 16:00 Mechanical Ventilator 01/31/19 13:01 76 22 40 01/31/19 12:00 40 01/31/19 12:00 Mechanical Ventilator 01/31/19 11:36 73 01/31/19 11:25 99 01/31/19 11:22 73 25 40 01/31/19 10:16 76 126/46 Intake and Output 01/31/19 02/01/19 19:00 07:00 Intake Total 625 ml 840 ml Balance 625 ml 840 ml Free Water 220 ml 300 ml Tube Feeding 405 ml 540 ml # Bowel Movements 6 4 Height (Feet): 5 Height (Inches): 4.00 Weight (Pounds): 205 General Appearance: alert EENT: normal ENT inspection Neck: supple Cardiovascular: normal rate Respiratory/Chest: decreased breath sounds Abdomen: normal bowel sounds, non tender, soft Extremities: non-tender Jorge Escalera MD Feb 01, 2019 10:14
[2019-02-01 12:00] VITALS: BP 159/92
--- NOTE | 2019-02-01 12:06 | Nephrology Progress Note ---
Assessment/Plan Problem List: (1) ESRD (end stage renal disease) on dialysis (2) Foot ulcer (3) CHF (congestive heart failure) Assessment: Ej Fx 20 % (4) Pacemaker (5) Acute respiratory failure Assessment: with Co2 retention (6) G-tube site cellulitis Assessment ESRD with high K and SOB on admit Foot ulcer, likely infected High Troponin likely NSTMI Pacer , Pleural effusion s/p CABGS s/p Liver transplant Plan dialysis 3 times weekly M W Fr or extra as needed labs before HD noted BP low- improved on midodrine per consultants, GI GT site infection, topical antibiotic Neuro note appreciated placement in process vascular esteban regarding heel ulcer per Dr Mcgill pain med change to dilaudid GT Now has tracheostomy and PEG Adjust BP meds add nitro paste TID Antibiotics by ID per cardio and ID Podiatry and Vascular surgical fu ? DC planning? Subjective ROS Limited/Unobtainable: Yes Objective Objective Last 24 Hour Vital Signs Date Time Temp Pulse Resp B/P (MAP) Pulse Ox O2 Delivery O2 Flow Rate FiO2 02/01/19 10:34 78 22 40 02/01/19 10:30 96 02/01/19 09:15 70 20 40 02/01/19 08:00 Mechanical Ventilator 02/01/19 08:00 40 02/01/19 08:00 70 02/01/19 06:55 76 23 40 02/01/19 05:07 88 23 40 02/01/19 04:00 40 02/01/19 04:00 Mechanical Ventilator 02/01/19 04:00 68 02/01/19 04:00 97.9 82 28 121/93 (102) 100 02/01/19 03:14 81 20 40 02/01/19 01:51 88 21 40 02/01/19 00:00 98.0 72 28 108/52 (70) 100 02/01/19 00:00 Mechanical Ventilator 01/31/19 23:25 82 23 40 01/31/19 21:54 87 139/77 01/31/19 21:26 87 20 40 01/31/19 20:00 81 19 40 01/31/19 20:00 75 01/31/19 20:00 Mechanical Ventilator 01/31/19 20:00 97.8 74 28 139/77 (97) 100 01/31/19 20:00 40 01/31/19 17:16 75 25 40 01/31/19 16:04 72 24 40 01/31/19 16:00 74 01/31/19 16:00 40 01/31/19 16:00 Mechanical Ventilator 01/31/19 13:01 76 22 40 Intake and Output 01/31/19 02/01/19 19:00 07:00 Intake Total 625 ml 840 ml Balance 625 ml 840 ml Free Water 220 ml 300 ml Tube Feeding 405 ml 540 ml # Bowel Movements 6 4 Height (Feet): 5 Height (Inches): 4.00 Weight (Pounds): 205 EENT: other - trach Respiratory/Chest: decreased breath sounds Abdomen: other - PEG Objective no other change Nakul Stevens MD Feb 01, 2019 12:06
--- NOTE | 2019-02-01 14:03 | General Progress Note ---
Assessment/Plan Status: stable Assessment/Plan: Status: stable Assessment/Plan: #Right heel diabetic foot ulcer without osteomyelitis #PAD #Right IJ DVT -Evaluated by Podiatry and ID -s/p Vanco x 2 weeks during HD and now OFF. Bone scan was negative for osteomyelitis and MRI not possible due to intubation. -continue Eliquis therapy -Vascular Surgery and Hematology following #Acute Resp hypercapnic failure s/p tracheostomy - ventilator weaning per pulmonary #Angioedema #Large right pleural effusion # R side trapped lung -continue trach care -Remains vent-dependant, breathing trials ongoing -Right thoracentesis 01/01/19 with 2.3 lt removed. Post procedure CXR with R trapped lung. -Vent weaning per pulmonary - unable to wean off yet. #End-stage renal disease, on dialysis -- #RUE edema #Anasarca, ascites, scrotal edema, pleural effusion due to hypoalbuminemia -HD with UF per Nephrology -s/p PRBC transfusion during HD - PRBC as needed if Hb < 7 - Paracentesis 4.1 lt in 12/31/18 #Coronary artery disease # s/p PPM # HTN -continue ASA, Coreg, atorvastatin -cardiology following #Type 2 DM -ISS #Acute metabolic encephalopathy -continue supportive care -Neurology following #history of chronic HCV infection #history of liver transplant -continue Prograf -GI following, discussed with Dr. Browne today and updated on Tacrolimus not being given since 01/27/19. Per review of record it was not renewed. Will restart at 2 mg BID and monitor level later this week. #Abdominal distension and ascites s/p therapeutic paracentesis -no nausea, vomiting or tenderness -continue supportive care -GI following -s/p paracentesis 12/31/18 4.1 lt #Dysphagia S/p PEG with PEG site cellulitis -s/p antibiotics per ID and GI -continue local wound care -tolerating tube feeds #Disposition -Pending SNF placement. Per last note by Josselyn MEYERS ( 01/28/19 ) referrals were sent to [facility] ( no transportation for HD provided). Need follow up. # FULL CODE Subjective ROS Limited/Unobtainable: No Allergies: Coded Allergies: CEPHALEXIN (Unverified Allergy, Unknown, 02/24/14) SULFAMETHOXAZOLE (Unverified Allergy, Unknown, 02/24/14) TRIMETHOPRIM (Unverified Allergy, Unknown, 02/24/14) Subjective 11 1patient is s/p tracheostomy and PEG. 01/01 thoracentesis L side 2.3 lt 12/31 paracenthesis 4.1 lt 12/30 last weaning trial Objective Last 24 Hour Vital Signs Date Time Temp Pulse Resp B/P (MAP) Pulse Ox O2 Delivery O2 Flow Rate FiO2 02/01/19 13:15 70 23 40 02/01/19 12:00 97.3 77 24 159/92 (114) 100 02/01/19 12:00 Mechanical Ventilator 02/01/19 12:00 40 02/01/19 10:34 78 22 40 02/01/19 10:30 96 02/01/19 09:15 70 20 40 02/01/19 08:00 Mechanical Ventilator 02/01/19 08:00 40 02/01/19 08:00 70 02/01/19 06:55 76 23 40 02/01/19 05:07 88 23 40 02/01/19 04:00 40 02/01/19 04:00 Mechanical Ventilator 02/01/19 04:00 68 02/01/19 04:00 97.9 82 28 121/93 (102) 100 02/01/19 03:14 81 20 40 02/01/19 01:51 88 21 40 02/01/19 00:00 98.0 72 28 108/52 (70) 100 02/01/19 00:00 Mechanical Ventilator 01/31/19 23:25 82 23 40 01/31/19 21:54 87 139/77 01/31/19 21:26 87 20 40 01/31/19 20:00 81 19 40 01/31/19 20:00 75 01/31/19 20:00 Mechanical Ventilator 01/31/19 20:00 97.8 74 28 139/77 (97) 100 01/31/19 20:00 40 01/31/19 17:16 75 25 40 01/31/19 16:04 72 24 40 01/31/19 16:00 74 01/31/19 16:00 40 01/31/19 16:00 Mechanical Ventilator Intake and Output 01/31/19 02/01/19 19:00 07:00 Intake Total 625 ml 840 ml Balance 625 ml 840 ml Free Water 220 ml 300 ml Tube Feeding 405 ml 540 ml # Bowel Movements 6 4 Height (Feet): 5 Height (Inches): 4.00 Weight (Pounds): 205 General Appearance: WD/WN, moderate distress EENT: PERRL/EOMI Neck: normal alignment Cardiovascular: normal rate, regular rhythm Respiratory/Chest: lungs clear, decreased breath sounds Abdomen: normal bowel sounds, non tender Neurologic: 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
--- NOTE | 2019-02-01 14:16 | Hematology/Onc Progress Note ---
Assessment/Plan Assessment/Plan Assessment/Plan Assessment and Recs: # Anemia of chronic disease due to underlying chronic medical issues, range has been 8-11, ferritin is 633, tibc is low. --> No evidence of hemolysis is noted, peripheral smear has been reviewed. --> Epogen with HD 3x/wk --> Medications have been reviewed --> evaluate with Gi team prn --> transfuse if hgb is < 7 (will trend CBC daily) --> hgb trend 11.2-->10.9-->10.8-->10.7-->10.2-->9.7-->9.7-->8.5-->9-->9.2-->8.4 -->7.7-->8.8-->9.1-->8.6-->8.3-->8.9--> --> s/p transfusion on 01/06 --> EGD stomach Antrum bx no malignancy noted pathology results reviewed. # Failure to thrive is likely related to poor overall status, poor functional status --> GT++ as per gi --> with multiple decub ulcerations that are noted, seen by id/surgery --> s/p trach as well --> cea is wnl # Acute non-occlusive dvt, right extremity ultrasound (acute non-occlusive DVT in internal jugular) --> currently is on eliquis 2.5mg po bid --> do not recommend a SVC filter --> given prior bleeding risk, hold off on heparin gtt --> vasc surgeon is aware, seek recs # Coagulopathy likely secondary to decreased Vitk dependent cofactors (high INR , PT) --> monitor closely for any evidence of bleeding. Currently is on eliquis --> VIT K on prn basis sq can be administered --> recently has improved inr 1.2-->1.1-->1.2-->1.1-->1.1 # Acute respiratory failure is now s/p trach to vent --> as per surgery recs # Ground glass opacities present on imaging of lung --> with pleural effusions, s/p drainage at this time --> no evidence for malignancy is noted --> as per pulm/id # Pleural effusion --> s/p thoracentesis, s/p paracentesis 12/31 --> no evidence of malignancy -->01/14 cxr: Interstitial edema, small left pleural effusion # Hyperkalemia --> kayxelate on prn basis per renal --> monitor K+ # Renal failure --> per renal recs, appreciated --> getting hd as per schedule 3x week # Altered level of consciousness --> currently as per baseline --> neuro eval prn # PAD off heparin gtt and now on eliquis --> per vasc and cards --> 12/22 s/p right leg angiogram with intervention --> on eliquis, continue # Gt tube cellulitis, on topical abx as per id around site #. Ascites --> fluid cytology no malignancy noted The timing of this note does not necessarily reflect the time of the patient was seen. Greatly appreciate consultation! Subjective Allergies: Coded Allergies: CEPHALEXIN (Unverified Allergy, Unknown, 02/24/14) SULFAMETHOXAZOLE (Unverified Allergy, Unknown, 02/24/14) TRIMETHOPRIM (Unverified Allergy, Unknown, 02/24/14) Subjective Subjective 11/30: comfortable, on abx, no complaints, on t-piece 12/01: to have hd done potentially tomorrow, is more alert/awake 12/02: no major bleeding, hgb remains approx 11, no changes 12/03: no events, breathing mildly better, hgb is improved 12/04: on vent/trach, no major changes, sr ekg 12/10: small amount of secretions, on trach/vent, no issues otherwise 12/11: no major issues, no complaints, labs reviewed, no sig changes 12/13: no events to report, no fevers or chills, awaiting placement 12/14: no changes, no major events to report, no fevers or chills 12/15: pending placement, getting gt feeds and hd as per renal 12/16: labs have been reviewed, cbc noted, no changes 12/17: no events, no fevers, no cp, hgb remains stable 12/18: restarted on heparin gtt, seen by pulm, cards 12/20: continues to be on heparin gtt, no bleeding reported, no f/c 12/21: hd for today, no fevers or chils, off hep gtt on eliquis 12/22: to get hd tomorrow, today is s/p right leg angiogram with intervention 12/23: hgb remins stable, no fevers or chills reported 12/24: no events, no bleeding, vitals reviewed, cbc stable 12/25: no events, no bleeding, on vent, hgb 9 12/27: no changes, no f/c, no night swearts, seen with other providers 12/28: right extremity ultrasound (acute non-occlusive DVT in internal jugular, on eliquis 12/29: no events, no night sweats, seen by gi, no bleeding 12/30: cbc has been reviewed, no f/c, no night sweats reported 12/31: no events, eliquis is on hold cbc has been reviewed, bp elevated 01/01: no fevers or chills, cbc reviewed, hgb 9.3, getting HD 01/02: no events noted, getting norco for pain, hgb stable 01/04: not events to report, no bleeding, refusing ivl at this time, cbc reviewed 01/05: no fevers or chills noted, s/p trach/vent, no f/c, no chills noted 01/06: no events, to get 1 unit prbc today, renal seen, on abx 01/07: hd for tomorrow, seen by renal, no events, cbc reviewed 01/08: getting Hd today, seen by renal, no major events, in sr 01/10: no events to report, to get hd tomorrow, hgb stable 01/11: on vent/trach, gtube, tolerating treatment well, hd today 01/12: remains nonverbal, stable, on vent/trach, no fc 01/13: no events noted, cbc has been reviewed 01/14: thora and para fluid still neg for malignancy, no bleeding 01/15: Pt examined at bedside. No acute events. Pt refusing IV access per nursing per nursing team. 01/17: Pt is awake and alert. Pt in stable condition. Hgb trending down: 8.3 will continue to monitor 01/18: Pt complain of abdominal pain and DIAZ. Hgb trend 8.3-->8.9 01/19: no events, cbc has been reviewed, hgb is stable today 01/20: Awake and alert, able to follow commands. Remains on vent. 01/21: Patient awake in bed. Trach to vent. Pt refused am lab draw. 01/22: no events, dc planning 01/23: no events, dc planning, on epogen and eliquis 01/26: no events, no f/c, tolerating trach well, hD prn 01/27: Patient is awake and oriented x4 no signs of distress 01/28: No acute distress, Pt resting in bed 01/29: no overnight events 01/30: pt agreed to labs this am, reviewed, no acute distress noted. 01/31: pt seen in the morning, GT was clogged. no bleeding reported. Afebrile. 02/01:No acute events reported, no bleeding. Afebrile. Objective Objective Current Medications Medications (Trade) Dose Ordered Sig/Aleks Route PRN Reason Start Time Stop Time Status Last Admin Dose Admin Apixaban (Eliquis) 2.5 mg BID GT 01/31/19 09:00 03/02/19 08:59 02/01/19 08:21 Aspirin (ASA) 81 mg DAILY PEG 01/19/19 09:00 02/18/19 08:59 02/01/19 08:20 Atorvastatin Calcium (Lipitor) 10 mg BEDTIME GT 01/18/19 21:00 02/17/19 20:59 01/31/19 21:54 Carvedilol (Coreg) 3.125 mg EVERY 12 HOURS PEG 01/18/19 21:00 02/17/19 20:59 01/31/19 21:54 Clotrimazole (Lotrimin) 1 applic DAILY TOPIC 01/08/19 18:00 02/07/19 17:59 02/01/19 08:21 Dextrose (Dextrose 50%) 25 ml Q30M PRN IV Hypoglycemia 02/01/19 14:00 03/03/19 13:59 Dextrose (Dextrose 50%) 50 ml Q30M PRN IV Hypoglycemia 02/01/19 14:00 03/03/19 13:59 Docusate Sodium (Colace) 100 mg TWICE A DAY GT 01/18/19 18:00 02/17/19 17:59 01/30/19 17:14 Epoetin Vini (Epoetin Vini(ESRD on dialysis)) 10,000 unit FRI- SUBQ 01/06/19 21:00 02/05/19 20:59 01/29/19 20:58 Escitalopram Oxalate (Lexapro) 20 mg DAILY GT 01/05/19 09:00 02/04/19 08:59 02/01/19 08:21 Hydralazine HCl (Apresoline) 25 mg Q4H PRN GT bp over 160 syst 01/06/19 15:00 02/05/19 14:59 Ibuprofen (Advil) 400 mg TIDPRN PRN ORAL For Pain 01/18/19 11:30 02/17/19 11:29 01/30/19 21:17 Insulin Aspart (NovoLOG) Q6HR SUBQ 02/01/19 18:00 03/03/19 17:59 Lansoprazole (Prevacid) 30 mg DAILY GT 01/16/19 09:00 02/15/19 08:59 02/01/19 08:21 Loperamide HCl (Imodium) 2 mg Q6H PRN GT Diarrhea 01/07/19 11:00 02/06/19 10:59 01/31/19 10:17 Tacrolimus (Prograf) 2 mg MoWeFr@0000,1200 GT 02/01/19 00:00 03/03/19 00:00 02/01/19 11:52 Tacrolimus (Prograf) 2 mg SuTuThSa@0900,2100 GT 01/31/19 21:00 03/02/19 20:59 01/31/19 21:54 Last 24 Hour Vital Signs Date Time Temp Pulse Resp B/P (MAP) Pulse Ox O2 Delivery O2 Flow Rate FiO2 02/01/19 13:15 70 23 40 02/01/19 12:00 97.3 77 24 159/92 (114) 100 02/01/19 12:00 67 02/01/19 12:00 Mechanical Ventilator 02/01/19 12:00 40 02/01/19 10:34 78 22 40 02/01/19 10:30 96 02/01/19 09:15 70 20 40 02/01/19 08:00 Mechanical Ventilator 02/01/19 08:00 40 02/01/19 08:00 70 02/01/19 06:55 76 23 40 02/01/19 05:07 88 23 40 02/01/19 04:00 40 02/01/19 04:00 Mechanical Ventilator 02/01/19 04:00 68 02/01/19 04:00 97.9 82 28 121/93 (102) 100 02/01/19 03:14 81 20 40 02/01/19 01:51 88 21 40 02/01/19 00:00 98.0 72 28 108/52 (70) 100 02/01/19 00:00 Mechanical Ventilator 01/31/19 23:25 82 23 40 01/31/19 21:54 87 139/77 01/31/19 21:26 87 20 40 01/31/19 20:00 81 19 40 01/31/19 20:00 75 01/31/19 20:00 Mechanical Ventilator 01/31/19 20:00 97.8 74 28 139/77 (97) 100 01/31/19 20:00 40 01/31/19 17:16 75 25 40 01/31/19 16:04 72 24 40 01/31/19 16:00 74 01/31/19 16:00 40 01/31/19 16:00 Mechanical Ventilator 01/31/19 13:01 76 22 40 01/31/19 12:00 40 01/31/19 12:00 Mechanical Ventilator 01/31/19 11:36 73 01/31/19 11:25 99 01/31/19 11:22 73 25 40 01/31/19 10:16 76 126/46 01/31/19 09:34 76 22 40 01/31/19 08:03 74 01/31/19 08:00 40 01/31/19 08:00 99.0 74 22 126/46 (72) 100 01/31/19 08:00 Mechanical Ventilator 01/31/19 06:55 74 24 40 01/31/19 05:30 81 24 40 01/31/19 04:00 Mechanical Ventilator 01/31/19 04:00 40 01/31/19 03:42 70 01/31/19 03:21 82 23 40 01/31/19 01:42 80 23 40 01/31/19 00:00 Mechanical Ventilator 01/31/19 00:00 98.5 73 24 133/55 (81) 100 01/30/19 23:31 75 01/30/19 23:19 83 24 40 01/30/19 21:29 84 20 40 01/30/19 21:16 73 131/56 01/30/19 20:00 Mechanical Ventilator 01/30/19 20:00 40 01/30/19 19:35 74 01/30/19 19:29 81 20 40 01/30/19 17:17 78 22 40 01/30/19 16:00 40 01/30/19 16:00 69 01/30/19 16:00 Mechanical Ventilator 01/30/19 15:15 68 18 40 Intake and Output 01/31/19 02/01/19 19:00 07:00 Intake Total 625 ml 840 ml Balance 625 ml 840 ml Free Water 220 ml 300 ml Tube Feeding 405 ml 540 ml # Bowel Movements 6 4 Labs Test 01/30/19 04:49 White Blood Count 5.9 K/UL (4.8-10.8) Red Blood Count 3.45 M/UL (4.70-6.10) Hemoglobin 8.6 G/DL (14.2-18.0) Hematocrit 26.5 % (42.0-52.0) Mean Corpuscular Volume 77 FL (80-99) Mean Corpuscular Hemoglobin 25.0 PG (27.0-31.0) Mean Corpuscular Hemoglobin Concent 32.6 G/DL (32.0-36.0) Red Cell Distribution Width 16.5 % (11.6-14.8) Platelet Count 229 K/UL (150-450) Mean Platelet Volume 6.0 FL (6.5-10.1) Neutrophils (%) (Auto) 72.3 % (45.0-75.0) Lymphocytes (%) (Auto) 17.9 % (20.0-45.0) Monocytes (%) (Auto) 8.8 % (1.0-10.0) Eosinophils (%) (Auto) 0.0 % (0.0-3.0) Basophils (%) (Auto) 1.0 % (0.0-2.0) Sodium Level 132 MMOL/L (136-145) Potassium Level 3.9 MMOL/L (3.5-5.1) Chloride Level 91 MMOL/L (98-107) Carbon Dioxide Level 26 MMOL/L (21-32) Anion Gap 15 mmol/L (5-15) Blood Urea Nitrogen 109 mg/dL (7-18) Creatinine 7.0 MG/DL (0.55-1.30) Estimat Glomerular Filtration Rate 7.9 mL/min (>60) Glucose Level 175 MG/DL (74-106) Calcium Level 9.2 MG/DL (8.5-10.1) Total Bilirubin 0.4 MG/DL (0.2-1.0) Aspartate Amino Transf (AST/SGOT) 13 U/L (15-37) Alanine Aminotransferase (ALT/SGPT) 13 U/L (12-78) Alkaline Phosphatase 131 U/L (46-116) Total Protein 6.7 G/DL (6.4-8.2) Albumin 2.0 G/DL (3.4-5.0) Globulin 4.7 g/dL Albumin/Globulin Ratio 0.4 (1.0-2.7) Height (Feet): 5 Height (Inches): 4.00 Weight (Pounds): 205 Objective PE General Appearance: mild distress, moderate distress Lines, tubes and drains: peripheral HEENT: EOMI, ++ thrush, tonsils swollen ++trach Neck: normal inspection Respiratory/Chest: decreased breath sounds, accessory muscle use. VENT++ Cardiovascular/Chest: tachycardia Abdomen: soft, no organomegaly, no mass, ++ peg Extremities: other Skin Exam: warm/dry, rash Neurologic: alert, responsive Zacarias Khoury MD Feb 01, 2019 14:16
--- NOTE | 2019-02-01 14:53 | Infectious Diseases Prog Note ---
Assessment/Plan Problems: (1) Foot ulcer Assessment & Plan: with MRSA grew out of it in the past, S/P vancomycin treatment with HD for two weeks, had vascular eval with revascularization to the right leg , S/P ulcer resection by [employer]isher . deep ulcer culture grew MRSA and E.coli with diphtheroids , possible colonization , with no evidence of active infection as per discussion with podiatry , no need to be started on antibiotics for now , will continue to monitor clinically and make recommendations as necessary. bone scan ruled out osteomyelitis of the heel before, couldn't do an MRI since on the vent . continue local wound care with wound VAC management as per [employer] hand finisher . (2) Diarrhea Assessment & Plan: improved, with no infectious etiology so far , and negative stool for C diff toxin , and no pathogens on stool culture , use laxatives as needed , monitor clinically , encourage hydration (3) Thrush, oral Assessment & Plan: resolved with local nystatin as needed , S/P micafungin for three weeks empirically (4) HCV antibody positive Assessment & Plan: no evidence of active infection, with undetectable viral load , suspect due to previous infection , cleared, S/P liver transplant . (5) DM (diabetes mellitus) Assessment & Plan: recommend tight glycemic control to keep blood glucose between 100-140 (6) CHF (congestive heart failure) Assessment & Plan: on HD , renal is following, monitor daily weight , S/P multiple thoracentesis (7) Severe tongue swelling Assessment & Plan: improving , s/p tracheostomy to protect his airway since respiratory status worsened . now improving, pulmonary is following (8) Pleural effusion Assessment & Plan: recurrent on the right, with lung collapse , S/P thoracentesis X 3 now with removal of 2.3 liters of clear fluids on 12/31/18 . await fluids culture and gram stain, with PH and Glucose level . PREVIOUS culture were negative with negative cytology. pulmonary is following (9) Ascites Assessment & Plan: S/P paracentesis with removal of 4.1 liters of fluids, culture so far is negative Assessment/Plan will continue to monitor patient on daily basis and make recommendations as necessary since he is high risk for recurrent infection Subjective Constitutional: Reports: no symptoms HEENT: Reports: no symptoms Respiratory: Reports: no symptoms Breasts: Reports: no symptoms Cardiovascular: Reports: no symptoms Gastrointestinal/Abdominal: Reports: no symptoms Genitourinary: Reports: no symptoms Neurologic: Reports: no symptoms Psychiatric: Reports: no symptoms Skin: Reports: no symptoms Endocrine: Reports: no symptoms Hematologic: Reports: no symptoms Musculoskeletal: Reports: no symptoms Allergies: Coded Allergies: CEPHALEXIN (Unverified Allergy, Unknown, 02/24/14) SULFAMETHOXAZOLE (Unverified Allergy, Unknown, 02/24/14) TRIMETHOPRIM (Unverified Allergy, Unknown, 02/24/14) Subjective he was comfortable, lying in bed, awake and responsive, no fever or chills, no significant secretions from the trach , no SOB . has left heel with wound VAC in place, but no draining coming out . no diarrhea . Objective Vital Signs Last 24 Hour Vital Signs Date Time Temp Pulse Resp B/P (MAP) Pulse Ox O2 Delivery O2 Flow Rate FiO2 02/01/19 13:15 70 23 40 02/01/19 12:00 97.3 77 24 159/92 (114) 100 02/01/19 12:00 67 02/01/19 12:00 Mechanical Ventilator 02/01/19 12:00 40 02/01/19 10:34 78 22 40 02/01/19 10:30 96 02/01/19 09:15 70 20 40 02/01/19 08:00 Mechanical Ventilator 02/01/19 08:00 40 02/01/19 08:00 70 02/01/19 06:55 76 23 40 02/01/19 05:07 88 23 40 02/01/19 04:00 40 02/01/19 04:00 Mechanical Ventilator 02/01/19 04:00 68 02/01/19 04:00 97.9 82 28 121/93 (102) 100 02/01/19 03:14 81 20 40 02/01/19 01:51 88 21 40 02/01/19 00:00 98.0 72 28 108/52 (70) 100 02/01/19 00:00 Mechanical Ventilator 01/31/19 23:25 82 23 40 01/31/19 21:54 87 139/77 01/31/19 21:26 87 20 40 01/31/19 20:00 81 19 40 01/31/19 20:00 75 01/31/19 20:00 Mechanical Ventilator 01/31/19 20:00 97.8 74 28 139/77 (97) 100 01/31/19 20:00 40 01/31/19 17:16 75 25 40 01/31/19 16:04 72 24 40 01/31/19 16:00 74 01/31/19 16:00 40 01/31/19 16:00 Mechanical Ventilator Height (Feet): 5 Height (Inches): 4.00 Weight (Pounds): 205 General Appearance: WD/WN, no acute distress HEENT: normocephalic, atraumatic, anicteric, mucous membranes moist, PERRL, EOMI, pharynx normal, supple, no JVD Respiratory/Chest: chest wall non-tender, lungs clear, normal breath sounds, no respiratory distress, no accessory muscle use Cardiovascular: normal peripheral pulses, normal rate, regular rhythm, no gallop/murmur, no JVD Abdomen: normal bowel sounds, soft, non tender, no organomegaly, non distended , no mass, no scars Extremities: no cyanosis, no clubbing Skin: no rash, no lesions, ulcers 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: alert, responsive Lymphatic: no neck adenopathy, no groin adenopathy Musculoskeletal: normal muscle bulk, no effusion Current Medications Medications (Trade) Dose Ordered Sig/Aleks Route PRN Reason Start Time Stop Time Status Last Admin Dose Admin Apixaban (Eliquis) 2.5 mg BID GT 01/31/19 09:00 03/02/19 08:59 02/01/19 08:21 Aspirin (ASA) 81 mg DAILY PEG 01/19/19 09:00 02/18/19 08:59 02/01/19 08:20 Atorvastatin Calcium (Lipitor) 10 mg BEDTIME GT 01/18/19 21:00 02/17/19 20:59 01/31/19 21:54 Carvedilol (Coreg) 3.125 mg EVERY 12 HOURS PEG 01/18/19 21:00 02/17/19 20:59 01/31/19 21:54 Clotrimazole (Lotrimin) 1 applic DAILY TOPIC 01/08/19 18:00 02/07/19 17:59 02/01/19 08:21 Dextrose (Dextrose 50%) 25 ml Q30M PRN IV Hypoglycemia 02/01/19 14:00 03/03/19 13:59 Dextrose (Dextrose 50%) 50 ml Q30M PRN IV Hypoglycemia 02/01/19 14:00 03/03/19 13:59 Docusate Sodium (Colace) 100 mg TWICE A DAY GT 01/18/19 18:00 02/17/19 17:59 01/30/19 17:14 Epoetin Vini (Epoetin Vini(ESRD on dialysis)) 10,000 unit FRI-FRI-FRI SUBQ 01/06/19 21:00 02/05/19 20:59 01/29/19 20:58 Escitalopram Oxalate (Lexapro) 20 mg DAILY GT 01/05/19 09:00 02/04/19 08:59 02/01/19 08:21 Hydralazine HCl (Apresoline) 25 mg Q4H PRN GT bp over 160 syst 01/06/19 15:00 02/05/19 14:59 Ibuprofen (Advil) 400 mg TIDPRN PRN ORAL For Pain 01/18/19 11:30 02/17/19 11:29 01/30/19 21:17 Insulin Aspart (NovoLOG) Q6HR SUBQ 02/01/19 18:00 03/03/19 17:59 Lansoprazole (Prevacid) 30 mg DAILY GT 01/16/19 09:00 02/15/19 08:59 02/01/19 08:21 Loperamide HCl (Imodium) 2 mg Q6H PRN GT Diarrhea 01/07/19 11:00 02/06/19 10:59 01/31/19 10:17 Tacrolimus (Prograf) 2 mg MoWeFr@0000,1200 GT 02/01/19 00:00 03/03/19 00:00 02/01/19 11:52 Tacrolimus (Prograf) 2 mg SuTuThSa@0900,2100 GT 01/31/19 21:00 03/02/19 20:59 01/31/19 21:54 Francois Landis M.D. Feb 01, 2019 14:53
[2019-02-01] MEDS: NovoLOG Insulin Flexpen SUBQ SCH (17:26)
--- NOTE | 2019-02-01 19:18 | Neurology Progress Note ---
Interim History Interim History Interim History Mr. Restrepo feels unwell. His right heel dressing was changed today and the right heel is more painful. His mood is fair. His spirits are fair. He was able to sleep well last night. He is being weaned off the ventilator and is comfortable. He is alert and bright. The right upper extremity is less swollen and less painful. He is still artificially ventilated. He feels that his strength is stable. The mind is clear. He denies any new neurological symptoms. He had PT today with leg exercises in bed. Review of Systems Neuro Review of Systems Benign. Objective Physical Exam Last Vital Signs Date Time Temp Pulse Resp B/P (MAP) Pulse Ox O2 Delivery O2 Flow Rate FiO2 02/01/19 18:52 72 20 40 02/01/19 16:00 Mechanical Ventilator 02/01/19 12:00 97.3 159/92 (114) 100 Neurologic Exam Objective PHYSICAL EXAMINATION: GENERAL: He is a well-developed, well-nourished, pleasant gentleman, lying in bed, connected to a ventilator via a tracheostomy. HEAD: Normocephalic and atraumatic. EENT: Examination benign. NECK: No neck rigidity was observed. He did have a tracheostomy. NEUROLOGICAL EXAMINATION: MENTAL STATUS EXAMINATION: He was awake and alert. He was oriented to person, place and time. He was able to recall 3/3 words immediately and was able to remember them in 1 and 3 minutes. He was able to remember presidents Trump through Mak Keny. His mathematical skills were fair. His visuospatial function was preserved. SPEECH: Could not be tested, but he was able to mouth words relatively well. LANGUAGE: He was able to comprehend and express himself relatively well. CRANIAL NERVES EXAMINATION: II: The visual mckeon were intact to confrontation testing. III, IV & : The external ocular movements were full and the pupils 3 mm in diameter, equal, round, regular, and reactive sluggishly to light. V: He had normal facial sensations, and the temporales, masseters, and pterygoids functioned normally. VII: He had normal facial expressions and no facial asymmetry. VIII: Hearing was decreased bilaterally with worse hearing on the left side compared to the right. IX: The palate moved symmetrically on phonation. X: Could not be tested. XI: The sternocleidomastoids and trapezii functioned normally. XII: The tongue was in the midline without any fasciculations or atrophy. MOTOR SYSTEM: The tone was normal in all four extremities. Examination of muscle mass revealed generalized muscle wasting. Examination of power revealed G 5/5 power except for G 4+/5 power in the iliopsoas muscles bilaterally. SENSORY EXAMINATION: He had intact sensations to light touch. Other sensory modalities could not be tested adequately. REFLEXES: 1+ and bilaterally symmetrical at the biceps, triceps, brachioradialis , and knees, 0 at both ankles. The plantar responses were flexor bilaterally. COORDINATION: He performed well on pxvtmy-sx-fnus testing. STANCE & GAIT: Were deferred. Impression/Recommendations Diagnostic Impression 1. Mr. Gregg Restrepo is a 69-year-old, right-handed, gentleman with past history of multiple medical problems including hypertension, diabetes mellitus, end-stage renal disease for which he is hemodialysis dependent, prior episodes of sepsis, and prior episodes of encephalopathy, who was admitted to [facility] on October 31, 2018. Following that, he has had a stormy hospital course including pneumonia and sepsis, right foot infection, respiratory failure for which he has needed tracheostomy and in addition he has exhibited an alteration in his mental state with some waxing and waning of his mental state. 2. He feels feels unwell. His right heel dressing was changed today and the right heel is more painful. His mood is fair. His spirits are fair. He was able to sleep well last night. He is being weaned off the ventilator and is comfortable. He is alert and bright. The right upper extremity is less swollen and less painful. He is still artificially ventilated. He feels that his strength is stable. The mind is clear. He denies any new neurological symptoms. He had PT today with leg exercises in bed. 3. On neurological examination, at this time, he is fully oriented, his recent memory is normal. He has minimally impaired higher cognitive function. He is able to comprehend and express himself well. He does have mild G 4+/5 weakness in the iliopsoas muscles bilaterally. He had globally diminished deep tendon reflexes with loss of ankle jerks, but no definite focal or lateralizing neurological findings. 4. His latest laboratory data on my initial evaluation revealed that he was anemic with a hemoglobin of 10.8 G. His last blood gas performed on 11/14/2018 revealed that he had a pCO2 elevated at 56.4 with a normal pO2 of 88.3 and normal pH of 7.37. His latest chemistry panel revealed that he was mildly hyponatremic with a sodium of 130, and had a chloride of 90. The BUN was elevated at 75, creatinine elevated at 7.4, glucose elevated at 156, Hemoglobin A1c elevated at 6.9%, Alkaline phosphatase elevated at 131, and ProBNP greater than 35,000. His last B12 level on 11/07/2018 was 723. His last folate on was 18.6. His last TSH on 12/06/2018 was 4.82, which is minimally elevated. 5. The CT scan of the brain performed on 11/10/2018 was benign for acute intracranial pathology. 6. The EEG done on 12/08/18 revealed left temporal dysfunction. 7. The patient's history and neurological examination are most consistent with mild multifactorial encephalopathy, which apparently waxes and wanes, but no definite focal neurological dysfunction. His encephalopathy is stable. 8. He tells me that he had a brain bleed many years ago. I did review his imaging done at [facility] a few years ago and he had closed head injuries with subarachnoid and subdural blood in the past. 9. His mood is better. 10. There has never been a doubt regarding his ability to make decisions regarding his medical care. 11. He is worried about his hearing. 12. As per his speech pathologists, they will continue to follow him for swallowing therapy. Recommendations 1. Continue present management. 2. Continue to correct the patient's toxic metabolic imbalances. 3. Mobilize with PT/OT. 4. Consider ENT evaluation for hearing loss. 5. Watch mood closely. 6. Observe. Pantera Cool M.D., M.S.P.H. Pantera Cool MD Feb 01, 2019 19:18
[2019-02-01] MEDS: Epoetin Alfa-EPBX(ESRD on dialysis)10,000 unit/ml vial SUBQ SCH (20:41)
[2019-02-02] VITALS: BP 124/78
--- NOTE | 2019-02-02 | Progress Note ---
DATE: 02/01/2019 SUBJECTIVE: The patient is the same. He continues to progress. Awaiting placement. The patient is depressed, low energy. Sleep is improved. MENTAL STATUS EXAMINATION: Alert and oriented x3. Mood is dysphoric. Affect is constricted. Congruent with mood. Thought process is concrete. Thought content, no suicidal or homicidal ideations. ASSESSMENT: Depression and anxiety. PLAN: We will continue the current medication and provide the patient with reality orientation and supportive therapy. Jeffrey Lala M.D. DR: CARMELLA JOB#: [id number] CC:
[2019-02-02] MEDS: NovoLOG Insulin Flexpen SUBQ SCH ×4 (00:06→17:50)
[2019-02-02 04:00] VITALS: BP 132/77
--- NOTE | 2019-02-02 07:39 | General Progress Note ---
Assessment/Plan Problem List: (1) Transplant ICD Codes: Z94.9 - Transplanted organ and tissue status, unspecified SNOMED: 980186473 (2) HTN (hypertension) ICD Codes: I10 - Essential (primary) hypertension SNOMED: 94227357 (3) Pacemaker ICD Codes: Z95.0 - Presence of cardiac pacemaker SNOMED: 379362332 (4) CHF (congestive heart failure) ICD Codes: I50.9 - Heart failure, unspecified SNOMED: 45810175 (5) DM (diabetes mellitus) ICD Codes: E11.9 - Type 2 diabetes mellitus without complications SNOMED: 31064049 (6) Foot ulcer ICD Codes: L97.509 - Non-pressure chronic ulcer of other part of unspecified foot with unspecified severity SNOMED: 11092024 Qualifiers: Qualified Codes: L97.511 - Non-pressure chronic ulcer of other part of right foot limited to breakdown of skin (7) ESRD (end stage renal disease) on dialysis ICD Codes: N18.6 - End stage renal disease; Z99.2 - Dependence on renal dialysis SNOMED: 908682151 Assessment/Plan: History of liver transplant, currently on Prograf History of cholecystectomy status post tracheostomy and PEG Infected G-tube site, fu ID recs C. difficile negative x 2 would care cx >> GRAM NEGATIVE BACILLUS CT AP reviewed, Moderate to large right pleural effusion. Moderate Ascites. s/p Paracentesis yielding 4.1 yield, r/o SBP >> negative for malignant cells Status post right thoracentesis yielding 2.1 L >> negative for malignant cells Continue G-tube feedings GT site care BID/prn topical abx around GT site per ID HD per nephro cont tacrolimus prn transfusions ppi zofran prn Imodium prn, Lomotil for persistent diarrhea follow labs supportive care outpatient Hep C tx, pending RNA PCR monitor LFTS Lomotil prn Subjective ROS Limited/Unobtainable: No Allergies: Coded Allergies: CEPHALEXIN (Unverified Allergy, Unknown, 02/24/14) SULFAMETHOXAZOLE (Unverified Allergy, Unknown, 02/24/14) TRIMETHOPRIM (Unverified Allergy, Unknown, 02/24/14) Subjective he pulled his NGT again Objective Last 24 Hour Vital Signs Date Time Temp Pulse Resp B/P (MAP) Pulse Ox O2 Delivery O2 Flow Rate FiO2 02/02/19 06:45 68 23 40 02/02/19 05:16 70 24 40 02/02/19 04:00 40 02/02/19 04:00 Mechanical Ventilator 02/02/19 04:00 98.0 68 23 132/77 (95) 100 02/02/19 03:40 74 02/02/19 02:59 72 21 40 02/02/19 00:45 73 21 40 02/02/19 00:00 Mechanical Ventilator 02/02/19 00:00 98.1 70 22 124/78 (93) 100 02/01/19 23:36 70 02/01/19 23:00 71 22 40 02/01/19 20:57 70 22 40 02/01/19 20:41 72 159/92 02/01/19 20:00 40 02/01/19 20:00 Mechanical Ventilator 02/01/19 19:08 72 02/01/19 18:52 72 20 40 02/01/19 16:54 80 22 40 02/01/19 16:00 71 02/01/19 16:00 Mechanical Ventilator 02/01/19 16:00 40 02/01/19 15:25 68 21 40 02/01/19 13:15 70 23 40 02/01/19 12:00 97.3 77 24 159/92 (114) 100 02/01/19 12:00 67 02/01/19 12:00 Mechanical Ventilator 02/01/19 12:00 40 02/01/19 10:34 78 22 40 02/01/19 10:30 96 02/01/19 09:15 70 20 40 02/01/19 08:00 Mechanical Ventilator 02/01/19 08:00 40 02/01/19 08:00 70 Intake and Output 02/01/19 02/02/19 18:59 06:59 Intake Total 690 ml 640 ml Output Total 3000 ml Balance -2310 ml 640 ml Free Water 150 ml 100 ml Tube Feeding 540 ml 540 ml Hemodialysis UF 3000 ml Height (Feet): 5 Height (Inches): 4.00 Weight (Pounds): 202 General Appearance: alert EENT: normal ENT inspection Neck: supple Cardiovascular: normal rate Respiratory/Chest: decreased breath sounds Abdomen: normal bowel sounds, non tender, soft Extremities: non-tender Jorge Escalera MD Feb 02, 2019 07:39
[2019-02-02 08:00] VITALS: BP 165/77
[2019-02-02] MEDS: Docusate 100mg/10ml Liq GT SCH ×2 (08:44→17:48)
[2019-02-02] MEDS: Aspirin Baby 81mg PEG SCH (09:02)
[2019-02-02] MEDS: Eliquis 2.5mg tablet GT SCH ×2 (09:03→17:49)
--- NOTE | 2019-02-02 11:12 | Neurology Progress Note ---
Interim History Interim History Interim History Mr. Restrepo feels relatively well. His right heel is still painful. He was unable to sleep well last night due to right heel and abdominal pain His mood is fair. His spirits are fair. He is being weaned off the ventilator and is comfortable. He is alert and bright. The right upper extremity is less swollen and less painful. He feels that his strength is stable. The mind is clear. He denies any new neurological symptoms. He has not had PT today. Review of Systems Neuro Review of Systems Benign. Objective Physical Exam Last Vital Signs Date Time Temp Pulse Resp B/P (MAP) Pulse Ox O2 Delivery O2 Flow Rate FiO2 02/02/19 09:03 70 165/77 02/02/19 08:53 26 40 02/02/19 08:00 Mechanical Ventilator 02/02/19 08:00 98.0 100 Neurologic Exam Objective PHYSICAL EXAMINATION: GENERAL: He is a well-developed, well-nourished, pleasant gentleman, lying in bed, connected to a ventilator via a tracheostomy. HEAD: Normocephalic and atraumatic. EENT: Examination benign. NECK: No neck rigidity was observed. He did have a tracheostomy. NEUROLOGICAL EXAMINATION: MENTAL STATUS EXAMINATION: He was awake and alert. He was oriented to person, place and time, except for the exact date. He was able to recall 3/3 words immediately and was able to remember them in 1 and 3 minutes. He was able to remember presidents Trump through Mak Keny. His mathematical skills were fair. His visuospatial function was preserved. SPEECH: Could not be tested, but he was able to mouth words relatively well. LANGUAGE: He was able to comprehend and express himself relatively well. CRANIAL NERVES EXAMINATION: II: The visual mckeon were intact to confrontation testing. III, IV & : The external ocular movements were full and the pupils 3 mm in diameter, equal, round, regular, and reactive sluggishly to light. V: He had normal facial sensations, and the temporales, masseters, and pterygoids functioned normally. VII: He had normal facial expressions and no facial asymmetry. VIII: Hearing was decreased bilaterally with worse hearing on the left side compared to the right. IX: The palate moved symmetrically on phonation. X: Could not be tested. XI: The sternocleidomastoids and trapezii functioned normally. XII: The tongue was in the midline without any fasciculations or atrophy. MOTOR SYSTEM: The tone was normal in all four extremities. Examination of muscle mass revealed generalized muscle wasting. Examination of power revealed G 5/5 power except for G 4+/5 power in the iliopsoas muscles bilaterally and the right toe extensors. SENSORY EXAMINATION: He had intact sensations to light touch. Other sensory modalities could not be tested adequately. REFLEXES: 1+ and bilaterally symmetrical at the biceps, triceps, brachioradialis , and knees, 0 at both ankles. The plantar responses were flexor bilaterally. COORDINATION: He performed well on ecgfuo-dl-wppu testing. STANCE & GAIT: Were deferred. Impression/Recommendations Diagnostic Impression 1. Mr. Gregg Restrepo is a 69-year-old, right-handed, gentleman with past history of multiple medical problems including hypertension, diabetes mellitus, end-stage renal disease for which he is hemodialysis dependent, prior episodes of sepsis, and prior episodes of encephalopathy, who was admitted to [facility] on October 31, 2018. Following that, he has had a stormy hospital course including pneumonia and sepsis, right foot infection, respiratory failure for which he has needed tracheostomy and in addition he has exhibited an alteration in his mental state with some waxing and waning of his mental state. 2. He feels relatively well. His right heel is still painful. He was unable to sleep well last night due to right heel and abdominal pain. His mood is fair. His spirits are fair. He is being weaned off the ventilator and is comfortable. He is alert and bright. The right upper extremity is less swollen and less painful. He feels that his strength is stable. The mind is clear. He denies any new neurological symptoms. He has not had PT today. 3. On neurological examination, at this time, he is well oriented except for the exact date, his recent memory is normal. He has minimally impaired higher cognitive function. He is able to comprehend and express himself well. He does have mild G 4+/5 weakness in the iliopsoas muscles bilaterally. He has globally diminished deep tendon reflexes with loss of ankle jerks, but no definite focal or lateralizing neurological findings. 4. His latest laboratory data on my initial evaluation revealed that he was anemic with a hemoglobin of 10.8 G. His last blood gas performed on 11/14/2018 revealed that he had a pCO2 elevated at 56.4 with a normal pO2 of 88.3 and normal pH of 7.37. His latest chemistry panel revealed that he was mildly hyponatremic with a sodium of 130, and had a chloride of 90. The BUN was elevated at 75, creatinine elevated at 7.4, glucose elevated at 156, Hemoglobin A1c elevated at 6.9%, Alkaline phosphatase elevated at 131, and ProBNP greater than 35,000. His last B12 level on 11/07/2018 was 723. His last folate on was 18.6. His last TSH on 12/06/2018 was 4.82, which is minimally elevated. 5. The CT scan of the brain performed on 11/10/2018 was benign for acute intracranial pathology. 6. The EEG done on 12/08/18 revealed left temporal dysfunction. 7. The patient's history and neurological examination are most consistent with mild multifactorial encephalopathy, which apparently waxes and wanes, but no definite focal neurological dysfunction. His encephalopathy is stable. 8. He tells me that he had a brain bleed many years ago. I did review his imaging done at [facility] a few years ago and he had closed head injuries with subarachnoid and subdural blood in the past. 9. His mood is better. 10. There has never been a doubt regarding his ability to make decisions regarding his medical care. 11. As per his speech pathologists, they will continue to follow him for swallowing therapy. Recommendations 1. Continue present management. 2. Continue to correct the patient's toxic metabolic imbalances. 3. Mobilize with PT/OT. 4. Continue swallowing therapy. 5. Consider ENT evaluation for hearing loss. 6. Watch mood closely. 7. Observe. Pantera Cool M.D., M.S.P.H. Pantera Cool MD Feb 02, 2019 11:12
[2019-02-02 12:00] VITALS: BP 146/77
--- NOTE | 2019-02-02 13:11 | Pulmonology Progress Note ---
Assessment/Plan Assessment/Plan 1. Resp failure, hypercapnic 2. End-stage renal disease, on dialysis, status post multiple upper extremity vascular procedures. 3. Coronary artery bypass surgery. 4. Diabetes. 5. Dysphonia, tongue swelling, resolved; s/p trach 6. Trapped R lung with hydropneumothorax PLAN: tolerates weaning x few hrs CXR with trapped lung, stable disc w RN stable for subacute Subjective ROS Limited/Unobtainable: Yes Allergies: Coded Allergies: CEPHALEXIN (Unverified Allergy, Unknown, 02/24/14) SULFAMETHOXAZOLE (Unverified Allergy, Unknown, 02/24/14) TRIMETHOPRIM (Unverified Allergy, Unknown, 02/24/14) Objective Last 24 Hour Vital Signs Date Time Temp Pulse Resp B/P (MAP) Pulse Ox O2 Delivery O2 Flow Rate FiO2 02/02/19 11:07 100 02/02/19 10:56 80 22 40 02/02/19 09:03 70 165/77 02/02/19 08:53 72 26 40 02/02/19 08:00 40 02/02/19 08:00 Mechanical Ventilator 02/02/19 08:00 70 02/02/19 08:00 98.0 70 22 165/77 (106) 100 02/02/19 06:45 68 23 40 02/02/19 05:16 70 24 40 02/02/19 04:00 40 02/02/19 04:00 Mechanical Ventilator 02/02/19 04:00 98.0 68 23 132/77 (95) 100 02/02/19 03:40 74 02/02/19 02:59 72 21 40 02/02/19 00:45 73 21 40 02/02/19 00:00 Mechanical Ventilator 02/02/19 00:00 98.1 70 22 124/78 (93) 100 02/01/19 23:36 70 02/01/19 23:00 71 22 40 02/01/19 20:57 70 22 40 02/01/19 20:41 72 159/92 02/01/19 20:00 40 02/01/19 20:00 Mechanical Ventilator 02/01/19 19:08 72 02/01/19 18:52 72 20 40 02/01/19 16:54 80 22 40 02/01/19 16:00 71 02/01/19 16:00 Mechanical Ventilator 02/01/19 16:00 40 02/01/19 15:25 68 21 40 02/01/19 13:15 70 23 40 Intake and Output 02/01/19 02/02/19 19:00 07:00 Intake Total 690 ml 595 ml Output Total 3000 ml Balance -2310 ml 595 ml Free Water 150 ml 100 ml Tube Feeding 540 ml 495 ml Hemodialysis UF 3000 ml Objective trach on vent General Appearance: no acute distress Respiratory/Chest: lungs clear, decreased breath sounds Cardiovascular: normal rate Current Medications Medications (Trade) Dose Ordered Sig/Aleks Route PRN Reason Start Time Stop Time Status Last Admin Dose Admin Apixaban (Eliquis) 2.5 mg BID GT 01/31/19 09:00 03/02/19 08:59 02/02/19 09:03 Aspirin (ASA) 81 mg DAILY PEG 01/19/19 09:00 02/18/19 08:59 02/02/19 09:02 Atorvastatin Calcium (Lipitor) 10 mg BEDTIME GT 01/18/19 21:00 02/17/19 20:59 02/01/19 20:41 Carvedilol (Coreg) 3.125 mg EVERY 12 HOURS PEG 01/18/19 21:00 02/17/19 20:59 02/02/19 09:03 Clotrimazole (Lotrimin) 1 applic DAILY TOPIC 01/08/19 18:00 02/07/19 17:59 02/02/19 09:02 Dextrose (Dextrose 50%) 25 ml Q30M PRN IV Hypoglycemia 02/01/19 14:00 03/03/19 13:59 Dextrose (Dextrose 50%) 50 ml Q30M PRN IV Hypoglycemia 02/01/19 14:00 03/03/19 13:59 Docusate Sodium (Colace) 100 mg TWICE A DAY GT 01/18/19 18:00 02/17/19 17:59 01/30/19 17:14 Epoetin Ivni (Epoetin Vini(ESRD on dialysis)) 10,000 unit FRI-FRI-FRI SUBQ 01/06/19 21:00 02/05/19 20:59 02/01/19 20:41 Escitalopram Oxalate (Lexapro) 20 mg DAILY GT 01/05/19 09:00 02/04/19 08:59 02/02/19 09:02 Hydralazine HCl (Apresoline) 25 mg Q4H PRN GT bp over 160 syst 01/06/19 15:00 02/05/19 14:59 Ibuprofen (Advil) 400 mg TIDPRN PRN ORAL For Pain 01/18/19 11:30 02/17/19 11:29 02/02/19 00:05 Insulin Aspart (NovoLOG) Q6HR SUBQ 02/01/19 18:00 03/03/19 17:59 02/02/19 12:25 Lansoprazole (Prevacid) 30 mg DAILY GT 01/16/19 09:00 02/15/19 08:59 02/02/19 09:03 Loperamide HCl (Imodium) 2 mg Q6H PRN GT Diarrhea 01/07/19 11:00 02/06/19 10:59 01/31/19 10:17 Tacrolimus (Prograf) 2 mg MoWeFr@0000,1200 GT 02/01/19 00:00 03/03/19 00:00 02/01/19 11:52 Tacrolimus (Prograf) 2 mg SuTuThSa@0900,2100 GT 01/31/19 21:00 03/02/19 20:59 02/02/19 09:18 Saroj Mendoza MD Feb 02, 2019 13:11
--- NOTE | 2019-02-02 14:55 | Nephrology Progress Note ---
Assessment/Plan Problem List: (1) ESRD (end stage renal disease) on dialysis (2) Foot ulcer (3) CHF (congestive heart failure) Assessment: Ej Fx 20 % (4) Pacemaker (5) Acute respiratory failure Assessment: with Co2 retention (6) G-tube site cellulitis Assessment ESRD with high K and SOB on admit Foot ulcer, likely infected High Troponin likely NSTMI Pacer , Pleural effusion s/p CABGS s/p Liver transplant Plan dialysis 3 times weekly M W Fr or extra as needed labs before HD noted BP low- improved on midodrine per consultants, GI GT site infection, topical antibiotic Neuro note appreciated placement in process vascular esteban regarding heel ulcer per Dr Mcgill pain med change to dilaudid GT Now has tracheostomy and PEG Adjust BP meds add nitro paste TID Antibiotics by ID per cardio and ID Podiatry and Vascular surgical fu ? DC planning? Subjective ROS Limited/Unobtainable: Yes Objective Objective Last 24 Hour Vital Signs Date Time Temp Pulse Resp B/P (MAP) Pulse Ox O2 Delivery O2 Flow Rate FiO2 02/02/19 13:38 78 18 40 02/02/19 12:00 68 02/02/19 12:00 40 02/02/19 12:00 Mechanical Ventilator 02/02/19 11:07 100 02/02/19 10:56 80 22 40 02/02/19 09:03 70 165/77 02/02/19 08:53 72 26 40 02/02/19 08:00 40 02/02/19 08:00 Mechanical Ventilator 02/02/19 08:00 70 02/02/19 08:00 98.0 70 22 165/77 (106) 100 02/02/19 06:45 68 23 40 02/02/19 05:16 70 24 40 02/02/19 04:00 40 02/02/19 04:00 Mechanical Ventilator 02/02/19 04:00 98.0 68 23 132/77 (95) 100 02/02/19 03:40 74 02/02/19 02:59 72 21 40 02/02/19 00:45 73 21 40 02/02/19 00:00 Mechanical Ventilator 02/02/19 00:00 98.1 70 22 124/78 (93) 100 02/01/19 23:36 70 02/01/19 23:00 71 22 40 02/01/19 20:57 70 22 40 02/01/19 20:41 72 159/92 02/01/19 20:00 40 02/01/19 20:00 Mechanical Ventilator 02/01/19 19:08 72 02/01/19 18:52 72 20 40 02/01/19 16:54 80 22 40 02/01/19 16:00 71 02/01/19 16:00 Mechanical Ventilator 02/01/19 16:00 40 02/01/19 15:25 68 21 40 Intake and Output 02/01/19 02/02/19 19:00 07:00 Intake Total 690 ml 595 ml Output Total 3000 ml Balance -2310 ml 595 ml Free Water 150 ml 100 ml Tube Feeding 540 ml 495 ml Hemodialysis UF 3000 ml Height (Feet): 5 Height (Inches): 4.00 Weight (Pounds): 202 EENT: other - trach Respiratory/Chest: decreased breath sounds Abdomen: distended, other - PEG Objective no other change Nakul Stevens MD Feb 02, 2019 14:55
[2019-02-02 16:00] VITALS: BP 158/88
--- NOTE | 2019-02-02 16:26 | Discharge Summary ---
Discharge Summary Hospital Course Date of Admission Oct 31, 2018 at 19:13 Date of Discharge 02/02/19 Admitting Diagnosis foot ulcer/elevated troponin HPI Gregg Restrepo is a 69 year old male who was admitted on Oct 31, 2018 at 19:13 for PVD Assessment/Plan Status: stable Assessment/Plan: Status: stable Assessment/Plan: #Right heel diabetic foot ulcer without osteomyelitis #PAD #Right IJ DVT -Evaluated by Podiatry and ID -s/p Vanco x 2 weeks during HD and now OFF. Bone scan was negative for osteomyelitis and MRI not possible due to intubation. -continue Eliquis therapy -Vascular Surgery and Hematology following #Acute Resp hypercapnic failure s/p tracheostomy - ventilator weaning per pulmonary #Angioedema #Large right pleural effusion # R side trapped lung -continue trach care -Remains vent-dependant, breathing trials ongoing -Right thoracentesis 01/01/19 with 2.3 lt removed. Post procedure CXR with R trapped lung. -Vent weaning per pulmonary - unable to wean off yet. #End-stage renal disease, on dialysis M-W- #RUE edema #Anasarca, ascites, scrotal edema, pleural effusion due to hypoalbuminemia -HD with UF per Nephrology -s/p PRBC transfusion during HD - PRBC as needed if Hb < 7 - Paracentesis 4.1 lt in 12/31/18 #Coronary artery disease # s/p PPM # HTN -continue ASA, Coreg, atorvastatin -cardiology following #Type 2 DM -ISS #Acute metabolic encephalopathy -continue supportive care -Neurology following #history of chronic HCV infection #history of liver transplant -continue Prograf -GI following, discussed with Dr. Browne today and updated on Tacrolimus not being given since 01/27/19. Per review of record it was not renewed. Will restart at 2 mg BID and monitor level later this week. #Abdominal distension and ascites s/p therapeutic paracentesis -no nausea, vomiting or tenderness -continue supportive care -GI following -s/p paracentesis 12/31/18 4.1 lt #Dysphagia S/p PEG with PEG site cellulitis -s/p antibiotics per ID and GI -continue local wound care -tolerating tube feeds #Disposition -Pending SNF placement. Per last note by Josselyn MEYERS ( 01/28/19 ) referrals were sent to [facility] ( no transportation for HD provided). Need follow up. # FULL CODE Procedures -s/p paracentesis 12/31/18 4.1 lt -Right thoracentesis 01/01/19 with 2.3 lt removed. Post procedure CXR with R trapped lung. Hospital Course Status: stable Assessment/Plan: #Right heel diabetic foot ulcer without osteomyelitis #PAD #Right IJ DVT -Evaluated by Podiatry and ID -s/p Vanco x 2 weeks during HD and now OFF. Bone scan was negative for osteomyelitis and MRI not possible due to intubation. -continue Eliquis therapy -Vascular Surgery and Hematology following #Acute Resp hypercapnic failure s/p tracheostomy - ventilator weaning per pulmonary #Angioedema #Large right pleural effusion # R side trapped lung -continue trach care -Remains vent-dependant, breathing trials ongoing -Right thoracentesis 01/01/19 with 2.3 lt removed. Post procedure CXR with R trapped lung. -Vent weaning per pulmonary - unable to wean off yet. #End-stage renal disease, on dialysis M-W- #RUE edema #Anasarca, ascites, scrotal edema, pleural effusion due to hypoalbuminemia -HD with UF per Nephrology -s/p PRBC transfusion during HD - PRBC as needed if Hb < 7 - Paracentesis 4.1 lt in 12/31/18 #Coronary artery disease # s/p PPM # HTN -continue ASA, Coreg, atorvastatin -cardiology following #Type 2 DM -ISS #Acute metabolic encephalopathy -continue supportive care -Neurology following #history of chronic HCV infection #history of liver transplant -continue Prograf -GI following, discussed with Dr. Browne and updated on Tacrolimus not being given since 01/27/19. Per review of record it was not renewed. Will restart at 2 mg BID and monitor level later this week. Tracolimus was restarted and will need outpatient follow up for level. #Abdominal distension and ascites s/p therapeutic paracentesis -no nausea, vomiting or tenderness -continue supportive care -GI following -s/p paracentesis 12/31/18 4.1 lt #Dysphagia S/p PEG with PEG site cellulitis -s/p antibiotics per ID and GI -continue local wound care -tolerating tube feeds #Disposition -LTAC to [facility] today. # FULL CODE Discharge Condition Upon Discharge: stable Discharge Disposition Patient was discharged to Sukhdeep Bird MD Feb 02, 2019 16:26
--- NOTE | 2019-02-02 16:29 | Discharge Summary ---
Discharge Summary Hospital Course Date of Admission Oct 31, 2018 at 19:13 Date of Discharge February 02 2019 Admitting Diagnosis foot ulcer/elevated troponin HPI Gregg Restrepo is a 69 year old male who was admitted on Oct 31, 2018 at 19:13 for PVD Hospital Course Status: stable Assessment/Plan: #Right heel diabetic foot ulcer without osteomyelitis #PAD #Right IJ DVT -Evaluated by Podiatry and ID -s/p Vanco x 2 weeks during HD and now OFF. Bone scan was negative for osteomyelitis and MRI not possible due to intubation. -continue Eliquis therapy -Vascular Surgery and Hematology following #Acute Resp hypercapnic failure s/p tracheostomy - ventilator weaning per pulmonary #Angioedema #Large right pleural effusion # R side trapped lung -continue trach care -Remains vent-dependant, breathing trials ongoing -Right thoracentesis 01/01/19 with 2.3 lt removed. Post procedure CXR with R trapped lung. -Vent weaning per pulmonary - unable to wean off yet. #End-stage renal disease, on dialysis M-W-F #RUE edema #Anasarca, ascites, scrotal edema, pleural effusion due to hypoalbuminemia -HD with UF per Nephrology -s/p PRBC transfusion during HD - PRBC as needed if Hb < 7 - Paracentesis 4.1 lt in 12/31/18 #Coronary artery disease # s/p PPM # HTN -continue ASA, Coreg, atorvastatin -cardiology following #Type 2 DM -ISS #Acute metabolic encephalopathy -continue supportive care -Neurology following #history of chronic HCV infection #history of liver transplant -continue Prograf -GI following, discussed with Dr. Browne and updated on Tacrolimus not being given since 01/27/19. Per review of record it was not renewed. Will restart at 2 mg BID and monitor level later this week. Tracolimus was restarted and will need outpatient follow up for level. #Abdominal distension and ascites s/p therapeutic paracentesis -no nausea, vomiting or tenderness -continue supportive care -GI following -s/p paracentesis 12/31/18 4.1 lt #Dysphagia S/p PEG with PEG site cellulitis -s/p antibiotics per ID and GI -continue local wound care -tolerating tube feeds #Disposition -LTAC to [facility] today. # FULL CODE Discharge Discharge Disposition Patient was discharged to [facility] Sukhdeep Galvan MD Feb 02, 2019 16:29
--- NOTE | 2019-02-02 17:11 | Cardiac Electrophysiology PN ---
Assessment/Plan Assessment/Plan 1. Troponin leak due to renal failure. No CP or SOB. Nl EF 2. Hx of CABG. On Coreg, aspirin and Lipitor 3. 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 EF 55%. Continue Coreg. No Syncope 4. CHF and right pleural effusion. On hemodialysis. S/P Thoracentesis 5. S/P Right sided [employer] DDD pacemaker with Nl Fx. Mostly V paced 6. End-stage renal disease, on hemodialysis MWF per Dr. Stevens 7. Multilevel AOD LE's with non-healing Right foot ulcer. Had abdominal angiogram per Dr Salmeron. FU by Dr. Huizar and Mawas S/P peripheral intervention by Dr. Salmeron 12/22/18 8. History of liver transplant on Prograf 9. Respiratory failure, S/P tracheostomy. 10. Pleural effusion. s/p thoracentesis 01/01/19 11. Dysphagia, S/P PEG DC to [facility] today pending XIOMARA RN Subjective Subjective No CP or SOB. DC to SN[facility] today is pending Objective Last 24 Hour Vital Signs Date Time Temp Pulse Resp B/P (MAP) Pulse Ox O2 Delivery O2 Flow Rate FiO2 02/02/19 17:07 86 24 40 02/02/19 16:00 Mechanical Ventilator 02/02/19 16:00 40 02/02/19 15:06 79 23 40 02/02/19 13:38 78 18 40 02/02/19 12:00 68 02/02/19 12:00 40 02/02/19 12:00 Mechanical Ventilator 02/02/19 11:07 100 02/02/19 10:56 80 22 40 02/02/19 09:03 70 165/77 02/02/19 08:53 72 26 40 02/02/19 08:00 40 02/02/19 08:00 Mechanical Ventilator 02/02/19 08:00 70 02/02/19 08:00 98.0 70 22 165/77 (106) 100 02/02/19 06:45 68 23 40 02/02/19 05:16 70 24 40 02/02/19 04:00 40 02/02/19 04:00 Mechanical Ventilator 02/02/19 04:00 98.0 68 23 132/77 (95) 100 02/02/19 03:40 74 02/02/19 02:59 72 21 40 02/02/19 00:45 73 21 40 02/02/19 00:00 Mechanical Ventilator 02/02/19 00:00 98.1 70 22 124/78 (93) 100 02/01/19 23:36 70 02/01/19 23:00 71 22 40 02/01/19 20:57 70 22 40 02/01/19 20:41 72 159/92 02/01/19 20:00 40 02/01/19 20:00 Mechanical Ventilator 02/01/19 19:08 72 02/01/19 18:52 72 20 40 Intake and Output 02/01/19 02/02/19 19:00 07:00 Intake Total 690 ml 595 ml Output Total 3000 ml Balance -2310 ml 595 ml Free Water 150 ml 100 ml Tube Feeding 540 ml 495 ml Hemodialysis UF 3000 ml Objective HEAD AND NECK: No JVD. Tracheostomy intact LUNGS: Clear CARDIOVASCULAR: Irregular S1 and S2 with no gallop. Sternotomy is intact Pacemaker in the right subclavian ABDOMEN: Soft. PEG in place EXTREMITIES: Right heel connected to WoundVac Shivam Sharpe MD Feb 02, 2019 17:11
--- NOTE | 2019-02-02 17:11 | Infectious Diseases Prog Note ---
Assessment/Plan Problems: (1) Foot ulcer Assessment & Plan: with MRSA grew out of it in the past, S/P vancomycin treatment with HD for two weeks, had vascular eval with revascularization to the right leg , S/P ulcer resection by licensed professional counselor . deep ulcer culture grew MRSA and E.coli with diphtheroids , possible colonization , with no evidence of active infection as per discussion with podiatry , no need to be started on antibiotics for now , will continue to monitor clinically and make recommendations as necessary. bone scan ruled out osteomyelitis of the heel before, couldn't do an MRI since on the vent . continue local wound care with wound VAC management as per licensed professional counselor . (2) Diarrhea Assessment & Plan: improved, with no infectious etiology so far , and negative stool for C diff toxin , and no pathogens on stool culture , use laxatives as needed , monitor clinically , encourage hydration (3) Thrush, oral Assessment & Plan: resolved with local nystatin as needed , S/P micafungin for three weeks empirically (4) HCV antibody positive Assessment & Plan: no evidence of active infection, with undetectable viral load , suspect due to previous infection , cleared, S/P liver transplant . (5) DM (diabetes mellitus) Assessment & Plan: recommend tight glycemic control to keep blood glucose between 100-140 (6) CHF (congestive heart failure) Assessment & Plan: on HD , renal is following, monitor daily weight , S/P multiple thoracentesis (7) Severe tongue swelling Assessment & Plan: improving , s/p tracheostomy to protect his airway since respiratory status worsened . now improving, pulmonary is following (8) Pleural effusion Assessment & Plan: recurrent on the right, with lung collapse , S/P thoracentesis X 3 now with removal of 2.3 liters of clear fluids on 12/31/18 . await fluids culture and gram stain, with PH and Glucose level . PREVIOUS culture were negative with negative cytology. pulmonary is following (9) Ascites Assessment & Plan: S/P paracentesis with removal of 4.1 liters of fluids, culture so far is negative Assessment/Plan will continue to monitor patient on daily basis and make recommendations as necessary since he is high risk for recurrent infection Subjective Constitutional: Reports: no symptoms HEENT: Reports: no symptoms Respiratory: Reports: no symptoms Breasts: Reports: no symptoms Cardiovascular: Reports: no symptoms Gastrointestinal/Abdominal: Reports: no symptoms Genitourinary: Reports: no symptoms Neurologic: Reports: no symptoms Psychiatric: Reports: no symptoms Skin: Reports: no symptoms Endocrine: Reports: no symptoms Hematologic: Reports: no symptoms Musculoskeletal: Reports: no symptoms Allergies: Coded Allergies: CEPHALEXIN (Unverified Allergy, Unknown, 02/24/14) SULFAMETHOXAZOLE (Unverified Allergy, Unknown, 02/24/14) TRIMETHOPRIM (Unverified Allergy, Unknown, 02/24/14) Subjective he was comfortable, lying in bed, awake and responsive, no fever or chills, no secretions from the trach , no SOB . has left heel with wound VAC in place, but no draining coming out . no diarrhea . Objective Vital Signs Last 24 Hour Vital Signs Date Time Temp Pulse Resp B/P (MAP) Pulse Ox O2 Delivery O2 Flow Rate FiO2 02/02/19 17:07 86 24 40 02/02/19 16:00 Mechanical Ventilator 02/02/19 16:00 40 02/02/19 15:06 79 23 40 02/02/19 13:38 78 18 40 02/02/19 12:00 68 02/02/19 12:00 40 02/02/19 12:00 Mechanical Ventilator 02/02/19 11:07 100 02/02/19 10:56 80 22 40 02/02/19 09:03 70 165/77 02/02/19 08:53 72 26 40 02/02/19 08:00 40 02/02/19 08:00 Mechanical Ventilator 02/02/19 08:00 70 02/02/19 08:00 98.0 70 22 165/77 (106) 100 02/02/19 06:45 68 23 40 02/02/19 05:16 70 24 40 02/02/19 04:00 40 02/02/19 04:00 Mechanical Ventilator 02/02/19 04:00 98.0 68 23 132/77 (95) 100 02/02/19 03:40 74 02/02/19 02:59 72 21 40 02/02/19 00:45 73 21 40 02/02/19 00:00 Mechanical Ventilator 02/02/19 00:00 98.1 70 22 124/78 (93) 100 02/01/19 23:36 70 02/01/19 23:00 71 22 40 02/01/19 20:57 70 22 40 02/01/19 20:41 72 159/92 02/01/19 20:00 40 02/01/19 20:00 Mechanical Ventilator 02/01/19 19:08 72 02/01/19 18:52 72 20 40 Height (Feet): 5 Height (Inches): 4.00 Weight (Pounds): 202 General Appearance: WD/WN, no acute distress HEENT: normocephalic, atraumatic, anicteric, mucous membranes moist, PERRL, EOMI, pharynx normal, supple, no JVD, status post trach Respiratory/Chest: chest wall non-tender, no respiratory distress, no accessory muscle use, decreased breath sounds, crackles/rales Cardiovascular: normal peripheral pulses, normal rate, regular rhythm, no gallop/murmur, no JVD Abdomen: normal bowel sounds, soft, non tender, no organomegaly, non distended , no mass, no scars Genitourinary: normal external genitalia Extremities: no cyanosis, no clubbing Skin: no rash, no lesions, ulcers 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: billing coordinator 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 normal, no motor/sensory deficits, alert, responsive Lymphatic: no neck adenopathy, no groin adenopathy Musculoskeletal: normal muscle bulk, no effusion Current Medications Medications (Trade) Dose Ordered Sig/Aleks Route PRN Reason Start Time Stop Time Status Last Admin Dose Admin Apixaban (Eliquis) 2.5 mg BID GT 01/31/19 09:00 03/02/19 08:59 02/02/19 09:03 Aspirin (ASA) 81 mg DAILY PEG 01/19/19 09:00 02/18/19 08:59 02/02/19 09:02 Atorvastatin Calcium (Lipitor) 10 mg BEDTIME GT 01/18/19 21:00 02/17/19 20:59 02/01/19 20:41 Carvedilol (Coreg) 3.125 mg EVERY 12 HOURS PEG 01/18/19 21:00 02/17/19 20:59 02/02/19 09:03 Clotrimazole (Lotrimin) 1 applic DAILY TOPIC 01/08/19 18:00 02/07/19 17:59 02/02/19 09:02 Dextrose (Dextrose 50%) 25 ml Q30M PRN IV Hypoglycemia 02/01/19 14:00 03/03/19 13:59 Dextrose (Dextrose 50%) 50 ml Q30M PRN IV Hypoglycemia 02/01/19 14:00 03/03/19 13:59 Docusate Sodium (Colace) 100 mg TWICE A DAY GT 01/18/19 18:00 02/17/19 17:59 01/30/19 17:14 Epoetin Vini (Epoetin Vini(ESRD on dialysis)) 10,000 unit SUBQ 01/06/19 21:00 02/05/19 20:59 02/01/19 20:41 Escitalopram Oxalate (Lexapro) 20 mg DAILY GT 01/05/19 09:00 02/04/19 08:59 02/02/19 09:02 Hydralazine HCl (Apresoline) 25 mg Q4H PRN GT bp over 160 syst 01/06/19 15:00 02/05/19 14:59 Ibuprofen (Advil) 400 mg TIDPRN PRN ORAL For Pain 01/18/19 11:30 02/17/19 11:29 02/02/19 00:05 Insulin Aspart (NovoLOG) Q6HR SUBQ 02/01/19 18:00 03/03/19 17:59 02/02/19 12:25 Lansoprazole (Prevacid) 30 mg DAILY GT 01/16/19 09:00 02/15/19 08:59 02/02/19 09:03 Loperamide HCl (Imodium) 2 mg Q6H PRN GT Diarrhea 01/07/19 11:00 02/06/19 10:59 01/31/19 10:17 Tacrolimus (Prograf) 2 mg MoWeFr@0000,1200 GT 02/01/19 00:00 03/03/19 00:00 02/01/19 11:52 Tacrolimus (Prograf) 2 mg SuTuThSa@0900,2100 GT 01/31/19 21:00 03/02/19 20:59 02/02/19 09:18 Francois Landis M.D. Feb 02, 2019 17:11
[2019-02-02 20:00] VITALS: BP 150/80
[2019-02-02] MEDS ORDERED: NS Irrig 1000ml ONE (20:36)
--- NOTE | 2019-02-03 | Progress Note ---
DATE: 02/02/2019 SUBJECTIVE: The patient is presenting with depressed mood, anhedonia, worthlessness, hopelessness, anxiety, low energy, poor insight into his condition. The patient stated that he is not doing well. He is not improving and . He looks more conscious today. MENTAL STATUS EXAMINATION: The patient is alert, oriented times self, place, and situation. Mood is depressed. Affect is constricted, congruent with mood. Thought process is concrete. Thought content, no suicidal or homicidal ideation. ASSESSMENT: Major depressive disorder, anxiety disorder. PLAN: We will continue current medications. Provide the patient with reality orientation and supportive therapy. Jeffrey Lala M.D. DR: BRITANY JOB#: [id number] CC:
== END 2019-02-02 20:37 | DRG 3 ==
LOC: EMR 17:00 → 2E 19:13 → EDBEDREQ 20:52 → ICU 11-05 22:05 → 2W 11-11 14:35
PROC: 5A1D70Z Performance of Urinary Filtration, Intermittent, Less than 6 Hours Per Day (ICD-10-PCS; principal; 2018-11-01)
PROC: 0B113F4 Bypass Trachea to Cutaneous with Tracheostomy Device, Percutaneous Approach (ICD-10-PCS; 2018-11-08)
PROC: 06HN33Z Insertion of Infusion Device into Left Femoral Vein, Percutaneous Approach (ICD-10-PCS; 2018-11-08)
PROC: 5A1955Z Respiratory Ventilation, Greater than 96 Consecutive Hours (ICD-10-PCS; 2018-11-08)
PROC: 0BJ08ZZ Inspection of Tracheobronchial Tree, Via Natural or Artificial Opening Endoscopic (ICD-10-PCS; 2018-11-08)
PROC: 0W993ZZ Drainage of Right Pleural Cavity, Percutaneous Approach (ICD-10-PCS; 2018-11-11)
PROC: 0CJS8ZZ Inspection of Larynx, Via Natural or Artificial Opening Endoscopic (ICD-10-PCS; 2018-11-12)
PROC: 0W993ZZ Drainage of Right Pleural Cavity, Percutaneous Approach (ICD-10-PCS; 2018-11-17)
PROC: 0DH63UZ Insertion of Feeding Device into Stomach, Percutaneous Approach (ICD-10-PCS; 2018-11-17)
PROC: 0DJ08ZZ Inspection of Upper Intestinal Tract, Via Natural or Artificial Opening Endoscopic (ICD-10-PCS; 2018-11-17)
PROC: 0CJS8ZZ Inspection of Larynx, Via Natural or Artificial Opening Endoscopic (ICD-10-PCS; 2018-11-17)
PROC: 047K3ZZ Dilation of Right Femoral Artery, Percutaneous Approach (ICD-10-PCS; 2018-12-16)
PROC: 047D3ZZ Dilation of Left Common Iliac Artery, Percutaneous Approach (ICD-10-PCS; 2018-12-16)
PROC: B410ZZZ Fluoroscopy of Abdominal Aorta (ICD-10-PCS; 2018-12-16)
PROC: 047K3DZ Dilation of Right Femoral Artery with Intraluminal Device, Percutaneous Approach (ICD-10-PCS; 2018-12-17)
PROC: 047M3DZ Dilation of Right Popliteal Artery with Intraluminal Device, Percutaneous Approach (ICD-10-PCS; 2018-12-17)
PROC: 3E05317 Introduction of Other Thrombolytic into Peripheral Artery, Percutaneous Approach (ICD-10-PCS; 2018-12-17)
PROC: 057Y3ZZ Dilation of Upper Vein, Percutaneous Approach (ICD-10-PCS; 2018-12-18)
PROC: 057D3ZZ Dilation of Right Cephalic Vein, Percutaneous Approach (ICD-10-PCS; 2018-12-18)
PROC: 05753ZZ Dilation of Right Subclavian Vein, Percutaneous Approach (ICD-10-PCS; 2018-12-18)
PROC: 05733ZZ Dilation of Right Innominate Vein, Percutaneous Approach (ICD-10-PCS; 2018-12-18)
PROC: 0JBQ3ZZ Excision of Right Foot Subcutaneous Tissue and Fascia, Percutaneous Approach (ICD-10-PCS; 2018-12-18)
PROC: 04CR3ZZ Extirpation of Matter from Right Posterior Tibial Artery, Percutaneous Approach (ICD-10-PCS; 2018-12-22)
PROC: 04CP3ZZ Extirpation of Matter from Right Anterior Tibial Artery, Percutaneous Approach (ICD-10-PCS; 2018-12-22)
PROC: 3E05317 Introduction of Other Thrombolytic into Peripheral Artery, Percutaneous Approach (ICD-10-PCS; 2018-12-22)
PROC: 04CT3ZZ Extirpation of Matter from Right Peroneal Artery, Percutaneous Approach (ICD-10-PCS; 2018-12-22)
PROC: 047P3ZZ Dilation of Right Anterior Tibial Artery, Percutaneous Approach (ICD-10-PCS; 2018-12-22)
PROC: 047R3ZZ Dilation of Right Posterior Tibial Artery, Percutaneous Approach (ICD-10-PCS; 2018-12-22)
PROC: 0W9G3ZZ Drainage of Peritoneal Cavity, Percutaneous Approach (ICD-10-PCS; 2018-12-30)
PROC: 0W993ZZ Drainage of Right Pleural Cavity, Percutaneous Approach (ICD-10-PCS; 2019-01-01)
DX: E11.621 Type 2 diabetes mellitus with foot ulcer (principal); I21.4 Non-ST elevation (NSTEMI) myocardial infarction; J96.02 Acute respiratory failure with hypercapnia; G93.41 Metabolic encephalopathy; A41.9 Sepsis, unspecified organism; Z94.4 Liver transplant status; J90 Pleural effusion, not elsewhere classified; L97.418 Non-pressure chronic ulcer of right heel and midfoot with other specified severity; I13.2 Hypertensive heart and chronic kidney disease with heart failure and with stage 5 chronic kidney disease, or end stage renal disease; R18.8 Other ascites; I47.2 Ventricular tachycardia; K94.22 Gastrostomy infection; L03.311 Cellulitis of abdominal wall; I31.3 Pericardial effusion (noninflammatory); D68.9 Coagulation defect, unspecified; B37.0 Candidal stomatitis; T82.590A Other mechanical complication of surgically created arteriovenous fistula, initial encounter; J93.9 Pneumothorax, unspecified; N18.6 End stage renal disease; Z99.2 Dependence on renal dialysis; E83.42 Hypomagnesemia; E11.42 Type 2 diabetes mellitus with diabetic polyneuropathy; E11.22 Type 2 diabetes mellitus with diabetic chronic kidney disease; I50.9 Heart failure, unspecified; R00.2 Palpitations; J45.909 Unspecified asthma, uncomplicated; Z95.0 Presence of cardiac pacemaker; K59.00 Constipation, unspecified; N50.89 Other specified disorders of the male genital organs; I25.10 Atherosclerotic heart disease of native coronary artery without angina pectoris; Z95.1 Presence of aortocoronary bypass graft; E87.5 Hyperkalemia; R13.10 Dysphagia, unspecified; I82.C11 Acute embolism and thrombosis of right internal jugular vein; E88.09 Other disorders of plasma-protein metabolism, not elsewhere classified; D64.9 Anemia, unspecified; R62.7 Adult failure to thrive; Z68.34 Body mass index [BMI] 34.0-34.9, adult; E56.1 Deficiency of vitamin K; R19.7 Diarrhea, unspecified; F32.9 Major depressive disorder, single episode, unspecified; F41.9 Anxiety disorder, unspecified; B95.62 Methicillin resistant Staphylococcus aureus infection as the cause of diseases classified elsewhere; I77.89 Other specified disorders of arteries and arterioles; K29.70 Gastritis, unspecified, without bleeding; R14.0 Abdominal distension (gaseous)
CPT/HCPCS: 20501; 31645; 36415; 36600; 70470; 70498; 71045; 71260; 74018; 74177; 75774; 75894; 76000; 76080; 76870; 76942; 77001; 78315; 80048; 80053; 80061; 80076; 80197; 80202; 82140; 82550; 82607; 82728; 82746; 82803; 82962; 82977; 83036; 83540; 83550; 83735; 83880; 83970; 83986; 84100; 84443; 84484; 84550; 85007; 85025; 85610; 85730; 86140; 86580; 86606; 86635; 86705; 86706; 86707; 86709; 86803; 86850; 86900; 86901; 86920; 87040; 87045; 87070; 87081; 87181; 87205; 87324; 87340; 87449; 87497; 87522; 87529; 88104; 89051; 93005; 93306; 93926; 93971; 94002; 94003; 94150; 94640; 94660; 94760; 95819; 96372; 96374; 96376; 99285; J1815; J2250; J2370; J2405; J2765; J7620